=== PATIENT | female | born 1945 | race Caucasian/White ===

== ENCOUNTER → 2017-10-10 13:56 | Outpatient (CLI) | payer MEDICARE, OTHER, SELFPAY ==
[2017-05-22 18:49] VITALS: BMI 24.6
[2017-05-24 09:49] VITALS: BP 132/88
[2017-10-10 15:28] LABS: Absolute Neutrophil Count 3.3 X10^3/uL (2.0-7.7); Basophil# 0.07 X10^3/uL; Eosinophil# 0.37 X10^3/uL; Eosinophils% 5.2 % (0-5); Hematocrit 40.1 % (37-47); Hemoglobin 12.9 g/dl (12.0-15.0); Lymphocyte % 37.9 % (19-41); Mean Corp Hgb Conc 32.2 g/gl (32-36); Mean Corpuscular Hgb 30.6 pg (27.0-32.0); Mean Platelet Vol. 10.2 fl (6.2-12.0); Monocyte# 0.71 X10^3/uL; Neutrophil # 3.25 X10^3/uL (2.7-7.7); Neutrophil % 45.6 % (47-70); Platelet Count 307 K/mm3 (150-450); RBC Distribution Width CV 14.1 % (11.6-14.6); RBC Distribution Width SD 47.4 fl (35.1-43.9); Red Blood Count 4.22 M/mm3 (4.2-5.4); White Blood Count 7.1 K/mm3 (4.4-11.0)
[2017-10-10 15:30] LABS: POSITIVE COUNT NO; POSITIVE DIFFERENTIAL NO; POSITIVE MORPHOLOGY NO
[2017-10-10 15:37] LABS: Erythrocyte Sedimentation Rate 7 mm/hr (0-30)
[2017-10-10 15:41] LABS: ALB/GLOB Ratio 1.1 RATIO (0.9-2.4); AST(SGOT) 14 U/L (15-37); Alanine Aminotransfer ALT/SGPT 16 U/L (13-56); Albumin, Serum 3.5 g/dL (3.2-5.0); Alkaline Phosphatase 81 U/L (45-117); Anion Gap 10 (5-15); BUN 14 mg/dL (7-18); BUN/Creat Ratio 18.7 RATIO (10-20); CRP 4.26 mg/L (0.0-3.0); Calcium,Total 8.3 mg/dL (8.5-10.1); Chloride 100 mmol/L (98-107); Creatinine, Serum 0.75 mg/dL (0.55-1.02); EST Glomerular Filtration Rate 80 mL/min (>60); Est Glom Filt Rate - Afr Amer 97 mL/min (>60); Globulin 3.2 g/dL (2.2-4.2); Glucose 132 mg/dL (74-106); Potassium 3.8 mmol/L (3.5-5.1); Protein, Total 6.7 g/dL (6.4-8.2); Sodium Level 138 mmol/L (136-145)
== END ==
PROVIDERS: Family Provider Internal Medicine; PCP Internal Medicine; Visit Provider Internal Medicine Rheumatology
DX: M06.4 Inflammatory polyarthropathy (principal); Z79.899 Other long term (current) drug therapy; M79.7 Fibromyalgia; M15.9 Polyosteoarthritis, unspecified; M17.0 Bilateral primary osteoarthritis of knee; M16.0 Bilateral primary osteoarthritis of hip
CPT/HCPCS: 36415; 80053; 85025; 85652; 86140

== ENCOUNTER → 2017-10-18 10:05 | Outpatient (CLI) | payer MEDICARE, OTHER, SELFPAY ==
--- NOTE | 2017-10-18 10:07 | HPBI_ITS ---
MAMMOGRAPHY - BILATERAL SCREENING REASON FOR EXAM: Female, 72 years old. Routine annual screening examination. PERTINENT HISTORY: Mother with breast cancer. Aunt with breast cancer. TECHNIQUE: Digital bilateral breast jann (3D mammographic acquisition) in the CC and MLO projections. 2-D mediolateral oblique (MLO) and craniocaudad (CC) views of both breasts were obtained. CAD: Full Field Digital Mammography with Computer Added Detection was performed. COMPARISON: Comparison is made with prior study dated November 19, 2015 and November 17, 2014. FINDINGS: Breast Composition: There are scattered areas of fibroglandular density. There are no dominant masses or suspicious calcifications. No other significant abnormalities are identified. There has been no significant change since the prior study. HPBI/SCREENING MAMM (CAD), BILAT IMPRESSION: Stable bilateral screening mammogram. Yearly follow-up mammogram recommended. (A) ASSESSMENT CATEGORY: BIRADS Category 1: Negative. A letter regarding these results will be sent to the patient by the facility within 30 days. Approximately 10% of breast cancers are not detected by mammography. A normal mammogram should not delay biopsy of a clinically suspicious abnormality. [id number] Electronically Signed: Florian Valenzuela MD at 13:51 EST Tel [phone], Service support ,
== END ==
PROVIDERS: Family Provider Internal Medicine; PCP Internal Medicine; Visit Provider Internal Medicine
DX: Z12.31 Encounter for screening mammogram for malignant neoplasm of breast (principal)
CPT/HCPCS: 77063; 77067

== ENCOUNTER 2017-12-03 16:02 | Emergency (ER) | payer MEDICARE, OTHER, SELFPAY ==
[2017-12-03 16:04] VITALS: BP 138/85; PULSE 100; RESP 17; TEMP 36.8; O2SAT 92; BMI 27.8
[2017-12-03] MEDS: HYDROcodone Bitartrate/Apap 5/325 Tablet PO (16:23)
--- NOTE | 2017-12-03 16:36 | RAD_ITS ---
STUDY: X-RAY CHEST REASON FOR EXAM: Female, 72 years old. Pain after fall. TECHNIQUE: PA and lateral views of the chest. COMPARISON: September 26, 2017 FINDINGS: The lungs are clear and expanded. There is no demonstrated pleural abnormality. Normal size heart. Normal mediastinum and karthik. Normal visualized pulmonary arteries. Normal visualized aortic arch and descending thoracic aorta. There are postsurgical changes within the lower cervical and upper lumbar spine. The bony thorax is intact. There is no demonstrated abnormality of the visualized soft tissue structures of the upper abdomen. RAD/Chest PA and Lateral IMPRESSION: No acute cardiopulmonary process. Electronically Signed: Lotus Anthony MD at 17:19 EDT Tel , Service support ,
--- NOTE | 2017-12-03 17:06 | ED.DCSUM_ITS ---
- ER Visit Summary Date of Service: 12/03/17 Chief Complaint: Left-sided chest/rib pain status post fall History of Present Illness: The patient is a 72 F who fell 1-1/2 weeks ago sustaining a bruise above the left brow and injuring her left chest. She fell from a standing position. This occurred when she got up quickly at 0351 to use the restroom. She had no loss conscious. She was not dazed. She is on no anticoagulant or antiplatelet medication. She denies any trouble with vision, speech and denies any neck pain, paresthesia, anesthesia motor weakness presently the time of the initial fall. She denies any trouble with walking or balance. This past Monday she was walking with close hamper. She slept and fell hitting the edge of the close basket onto the left side of her chest. She has had increased pain. She states she has pain with movement of her left upper extremity, bending, twisting or breathing. She localizes the pain over the lower ribs and specifically left parasternal border and from the anterior axillary line to the posterior axillary line. She denies any hematuria, frequency, urgency or dysuria. She denies any abdominal pain or back pain. Please read written note for complete detail Physical Examination: Vital signs are remarkable for an elevated blood pressure 138/85. She is not febrile, tachypneic or hypoxic. She appears uncomfortable. Head is normocephalic. There is a bruise over the left brow laterally. There is no palpable depression or subcutaneous hematoma. Pupils are equal round reactive. Extraocular muscles are intact. TMs are pearly white with landmarks noted. Nares patent with no drainage. Posterior pharynx without erythema or exudate. Uvula is midline. There is no dysphonia or dysphasia. Trachea is midline. There is no stridor with auscultation of the neck. There is no pain palpation of the cervical spine and she has full active range of motion. Heart is regular without murmur, gallop or rub. S1 and S2 are normal. Lungs are clear to auscultation with good movement of air bilaterally. There is pain to palpation over the fifth sixth intercostal space on the left. There is pain that she complains of from the left seventh through 10th rib on the left. There is no crepitus or subcutaneous air. There is no dullness to percussion. Breath sounds are not diminished on the left nor is there any hyperresonance. Abdomen is soft and nontender. There is no hepatosplenomegaly. There is no tenderness with deep palpation left upper quadrant. There is no CVA tenderness noted. There is no guarding or rebound tenderness. There is no evidence of trauma to the extremities. GCS is 15 with a nonfocal neurologic exam. please read written note for complete detail. Test Results: Two-view chest x-ray revealed no acute process per my interpretation Emergency Department Course and Treatment: 2 view chest x-ray was obtained to evaluate for fractured rib, pneumothorax, hemothorax. Treatment Plan: Patient was treated with opiate analgesia in the department because she states her boyfriend could take her home. Patient was told 40-60% of rib fractures are not detected on x-ray. Disposition: Discharge to home with opiate analgesia and appropriate home-going instructions Impression: Left-sided rib pain secondary to blunt trauma This note was generated with [employer] dictation software. It may contain incorrect words, spelling, and punctuation that were not noted in review of the chart prior to signing ED Disposition - Plan for ED Patient: Disposition: Home or Assisted Living Chief Complaint: Chest Other Instructions: ED Contusion Vs Minor Fx Rib Prescriptions: Hydrocodone Bitart/Apap 5-325 [[place] 5MG-325MG] 1 tab PO Q6H PRN PRN 3 Days #10 tab PRN Reason: Pain Referrals: Margarita Drake DO [Primary Care Provider] - 1 Week if not improving
--- NOTE | 2017-12-03 17:12 | ED.RN ---
pt drove herself in, call boyfriend for ride d/t being given a narcotic
== END 2017-12-03 17:12 | disposition home or self-care (01) ==
PROVIDERS: Emergency Provider Emergency Medicine; Family Provider Internal Medicine; PCP Internal Medicine
DX: S29.9XXA Unspecified injury of thorax, initial encounter (principal); W01.0XXA Fall on same level from slipping, tripping and stumbling without subsequent striking against object, initial encounter; Y93.01 Activity, walking, marching and hiking; Y92.9 Unspecified place or not applicable; I10 Essential (primary) hypertension; E78.00 Pure hypercholesterolemia, unspecified; E11.9 Type 2 diabetes mellitus without complications; Z79.84 Long term (current) use of oral hypoglycemic drugs; K21.9 Gastro-esophageal reflux disease without esophagitis; E66.9 Obesity, unspecified; Z68.27 Body mass index [BMI] 27.0-27.9, adult; Z79.899 Other long term (current) drug therapy
CPT/HCPCS: 71046; 99283

== ENCOUNTER → 2017-12-07 08:53 | Outpatient (CLI) | payer MEDICARE, OTHER, SELFPAY ==
[2017-12-07 09:56] LABS: Absolute Lymphocyte Count 2.55 X10^3/ul (0.83-4.51); Absolute Neutrophil Count 2.6 X10^3/uL (2.0-7.7); Basophil# 0.05 X10^3/uL; Basophil% 0.8 % (0-1); Eosinophil# 0.22 X10^3/uL; Eosinophils% 3.5 % (0-5); Hemoglobin 13.3 g/dl (12.0-15.0); Lymphocyte # 2.55 X10^3/ul (4.0); Lymphocyte % 40.7 % (19-41); Mean Corp Hgb Conc 31.7 g/gl (32-36); Mean Corpuscular Hgb 30.9 pg (27.0-32.0); Mean Corpuscular Volume 97.4 fL (81-99); Mean Platelet Vol. 9.5 fl (6.2-12.0); Monocyte# 0.79 X10^3/uL; Monocyte% 12.6 % (0-10); Neutrophil # 2.63 X10^3/uL (2.7-7.7); Neutrophil % 41.9 % (47-70); Platelet Count 358 K/mm3 (150-450); RBC Distribution Width CV 16.5 % (11.6-14.6); RBC Distribution Width SD 58.2 fl (35.1-43.9); Red Blood Count 4.31 M/mm3 (4.2-5.4); White Blood Count 6.3 K/mm3 (4.4-11.0)
[2017-12-07 09:57] LABS: POSITIVE COUNT NO; POSITIVE DIFFERENTIAL NO; POSITIVE MORPHOLOGY NO
[2017-12-07 10:17] LABS: ALB/GLOB Ratio 1.1 RATIO (0.9-2.4); AST(SGOT) 13 U/L (15-37); Alanine Aminotransfer ALT/SGPT 21 U/L (13-56); Albumin, Serum 3.9 g/dL (3.2-5.0); Alkaline Phosphatase 76 U/L (45-117); Anion Gap 8 (5-15); BUN 13 mg/dL (7-18); BUN/Creat Ratio 16.9 RATIO (10-20); Calcium,Total 8.9 mg/dL (8.5-10.1); Chloride 100 mmol/L (98-107); Creatinine, Serum 0.77 mg/dL (0.55-1.02); EST Glomerular Filtration Rate 78 mL/min (>60); Est Glom Filt Rate - Afr Amer 94 mL/min (>60); Globulin 3.6 g/dL (2.2-4.2); Glucose 107 mg/dL (74-106); Potassium 3.4 mmol/L (3.5-5.1); Protein, Total 7.5 g/dL (6.4-8.2); Sodium Level 140 mmol/L (136-145)
== END ==
PROVIDERS: Family Provider Internal Medicine; PCP Internal Medicine; Visit Provider Internal Medicine Rheumatology
DX: M06.4 Inflammatory polyarthropathy (principal); Z79.899 Other long term (current) drug therapy; M79.7 Fibromyalgia; M15.9 Polyosteoarthritis, unspecified; M17.0 Bilateral primary osteoarthritis of knee; M16.0 Bilateral primary osteoarthritis of hip; K21.9 Gastro-esophageal reflux disease without esophagitis; M21.40 Flat foot [pes planus] (acquired), unspecified foot; F32.89 Other specified depressive episodes; F41.9 Anxiety disorder, unspecified
CPT/HCPCS: 36415; 80053; 85025

== ENCOUNTER → 2018-02-08 14:49 | Outpatient (CLI) | payer MEDICARE, OTHER, SELFPAY ==
--- NOTE | 2018-02-08 14:49 | DT_ITS ---
This patient was seen during an EMR downtime February 05, 2018 - February 12, 2018. This patient may have a combination of paper and electronic documentation or all paper documentation. All documentation is viewable within the e-chart portion of [employer] for each patient visit.
--- NOTE | 2018-02-08 14:51 | MRI_ITS ---
STUDY: MRI LUMBAR SPINE WITHOUT CONTRAST REASON FOR EXAM: Female, 72 years old. Bilateral leg pain and numbness TECHNIQUE: Standardized fat and water weighted pulse sequences were obtained in the sagittal and axial planes. COMPARISON: 02/14/2017 FINDINGS: T12-L1: Normal endplates. Normal disc height, hydration and morphology. Normal bilateral facet joints. Normal central canal and bilateral lateral recesses. Normal bilateral intervertebral neural foramina. Stable grade 1 L4-5 anterolisthesis. Mild dextroconvex scoliosis. Normal conus medullaris that terminates at the L1 level. Bilateral posterior pedicle fusions at L1, L2, L4, and L5. Right pedicle fusion at L3. Bone harvesting from both kerry. Bilateral laminectomies from L1 to through L5-S1. L1-2: Bulging annulus with moderate left foraminal stenosis. L2-3: Bulging annulus with moderate left foraminal stenosis. L3-4: Residual disc osteophyte complex with moderate bilateral foraminal stenoses. L4-5: Residual disc osteophyte complex with moderate right and mild left foraminal stenoses. L5-S1: Bulging annulus and central disc protrusion with moderate left lateral recess stenosis and moderate bilateral foraminal stenoses. Normal visualized sacral ala. Normal visualized paraspinous soft tissue structures. MRI/Spine Lumbar (Routine) IMPRESSION: Multilevel degenerative and postoperative change as described. Moderate foraminal stenoses on the left at L1-2, on the left at L2-3, bilaterally at L3-4, on the right at L4-5, and bilaterally at L5-S1. Moderate left lateral recess stenosis at the L5-S1 level. Electronically Signed: Dylan Donato MD at 0:46 EDT Tel , Service support ,
--- NOTE | 2018-02-08 14:51 | CT_ITS ---
STUDY: CT LUMBAR SPINE WITHOUT CONTRAST REASON FOR EXAM: Female, 72 years old. Low back pain RADIATION DOSAGE (If Supplied By Facility): CTDIvol = ( 16.20 ) mGy, DLP = ( 378.74 ) mGycm TECHNIQUE: The patient was scanned in a multi detector CT scanner. High resolution transaxial imaging was performed. Images were obtained from T12 to S1. Sagittal and coronal images were reconstructed. Individualized dose optimization techniques were used for this CT. COMPARISON: 08/04/2017 x-ray FINDINGS: Anterolisthesis L4 on L5. There is no substantial scoliosis. Demineralization. Bilateral pedicle screws L1-L5. The right L3 pedicle screw appears to be broken. No left L3 pedicle screw identified. Demineralization. L1-2: Degenerative disc disease. Stable L1 superior endplate change. Laminectomy. Bilateral neural foraminal narrowing. L2-3: Degenerative disc disease. Laminectomy. No central canal stenosis. Mild left neural foraminal narrowing. L3-4: Degenerative disc disease. Laminectomy. No central canal stenosis. Left neural foraminal narrowing. L4-5: There is a 4 mm anterolisthesis L4 on L5. Laminectomy. Bilateral neural foraminal narrowing. L5-S1: Degenerative disc disease with vacuum phenomena. Laminectomy. No central canal stenosis. Bilateral neural foraminal narrowing. Normal visualized paraspinous soft tissue structures. CT/Spine Lumbar without Contrast IMPRESSION: Multilevel degenerative change discussed above. Hardware as described. Right L3 pedicle screw appears broken. Grade 1 anterolisthesis of L4 on L5. Laminectomies. Demineralization. Electronically Signed: Robles Mejia DO at 10:57 EDT , Service support ,
== END ==
PROVIDERS: Family Provider Internal Medicine; PCP Internal Medicine; Visit Provider Neurological Surgery
DX: M48.07 Spinal stenosis, lumbosacral region (principal)
CPT/HCPCS: 72131; 72148

== ENCOUNTER → 2018-03-12 07:01 | Outpatient (CLI) | payer MEDICARE, OTHER, SELFPAY ==
[2018-03-12 10:11] LABS: Absolute Lymphocyte Count 1.82 X10^3/ul (0.83-4.51); Absolute Neutrophil Count 4.4 X10^3/uL (2.0-7.7); Basophil# 0.03 X10^3/uL; Basophil% 0.4 % (0-1); Eosinophil# 0.16 X10^3/uL; Eosinophils% 2.3 % (0-5); Hematocrit 42.2 % (37-47); Hemoglobin 13.6 g/dl (12.0-15.0); Lymphocyte # 1.82 X10^3/ul (4.0); Lymphocyte % 26.1 % (19-41); Mean Corp Hgb Conc 32.2 g/gl (32-36); Mean Corpuscular Hgb 31.4 pg (27.0-32.0); Mean Corpuscular Volume 97.5 fL (81-99); Mean Platelet Vol. 9.9 fl (6.2-12.0); Monocyte# 0.53 X10^3/uL; Monocyte% 7.6 % (0-10); Neutrophil # 4.41 X10^3/uL (2.7-7.7); Neutrophil % 63.5 % (47-70); Platelet Count 295 K/mm3 (150-450); RBC Distribution Width CV 14.9 % (11.6-14.6); RBC Distribution Width SD 50.5 fl (35.1-43.9); Red Blood Count 4.33 M/mm3 (4.2-5.4)
[2018-03-12 10:22] LABS: POSITIVE COUNT NO; POSITIVE DIFFERENTIAL NO; POSITIVE MORPHOLOGY NO
[2018-03-12 10:29] LABS: ALB/GLOB Ratio 1.3 RATIO (0.9-2.4); AST(SGOT) 13 U/L (15-37); Alanine Aminotransfer ALT/SGPT 21 U/L (13-56); Albumin, Serum 4.1 g/dL (3.2-5.0); Alkaline Phosphatase 80 U/L (45-117); Anion Gap 12 (5-15); BUN 20 mg/dL (7-18); BUN/Creat Ratio 22.4 RATIO (10-20); Calcium,Total 8.3 mg/dL (8.5-10.1); Chloride 105 mmol/L (98-107); Creatinine, Serum 0.89 mg/dL (0.55-1.02); EST Glomerular Filtration Rate 66 mL/min (>60); Est Glom Filt Rate - Afr Amer 79 mL/min (>60); Globulin 3.1 g/dL (2.2-4.2); Glucose 118 mg/dL (74-106); Potassium 3.4 mmol/L (3.5-5.1); Protein, Total 7.2 g/dL (6.4-8.2); Sodium Level 145 mmol/L (136-145)
== END ==
PROVIDERS: Family Provider Internal Medicine; PCP Internal Medicine; Visit Provider Internal Medicine Rheumatology
DX: M06.4 Inflammatory polyarthropathy (principal); M79.7 Fibromyalgia; M17.0 Bilateral primary osteoarthritis of knee; M16.0 Bilateral primary osteoarthritis of hip; K21.9 Gastro-esophageal reflux disease without esophagitis; M21.40 Flat foot [pes planus] (acquired), unspecified foot; F32.89 Other specified depressive episodes; F41.9 Anxiety disorder, unspecified; I10 Essential (primary) hypertension; E11.9 Type 2 diabetes mellitus without complications; G25.81 Restless legs syndrome; Z85.43 Personal history of malignant neoplasm of ovary; Z79.899 Other long term (current) drug therapy
CPT/HCPCS: 36415; 80053; 85025

== ENCOUNTER 2018-05-07 08:22 | Emergency (ER) | payer MEDICARE, OTHER, SELFPAY ==
[2018-05-07 08:23] VITALS: BP 160/106; PULSE 94; RESP 16; TEMP 36.7; O2SAT 99; BMI 26.6
--- NOTE | 2018-05-07 08:38 | ED.VISSUMM ---
- ER Visit Summary Date of Service: 05/07/18 Chief Complaint: Nausea, vomiting and diarrhea History of Present Illness: The patient is a 72 F has a past medical history of valvular heart disease, hypertension, cholesterol spinal stenosis and multiple surgeries. Patient states she went to [employer] game on Monday. And she developed nausea vomiting and diarrhea days. Denies any hematemesis. Denies any melena. She has had fever and chills. She really denies any significant abdominal pain. Physical Examination: Older female vital signs are stable she is afebrile temperature 98. Pulse is 99% on room air no signs of hypoxia. She does not look septic. She does appear to be dehydrated. H EENT exam dry mucous membranes otherwise unremarkable. No facial droop. Pupils are round reactive light. Equal symmetrical. Neck nontender. No lymphadenopathy. Lungs clear to auscultation bilaterally. Heart regular rhythm. Abdomen is soft, nontender, nondistended normal bowel sounds without peritoneal signs. No hernias or masses. No signs of obstruction. She is moving all 4 extremities. They are neurovascularly intact. Back is nontender. Neurologically she is awake and alert with no focal motor deficits. Test Results: CBC shows a white count of 7. H&H of 14 and 43. No bands. Electrolytes unremarkable gap of 10. Creatinine is 0.7. Emergency Department Course and Treatment: Patient be treated with IV fluids and IV Zofran. Clinically and historically this is consistent with a viral gastroenteritis. An IV Zofran. She was given a p.o. fluid challenge and she is able to hold fluids down she will be discharged home with Zofran. Treatment Plan: Zofran 4 mg as needed for nausea. Follow-up with primary care physician as needed or return if worse. Disposition: Discharge Impression: Acute nausea, vomiting and diarrhea secondary to gastroenteritis Dehydration This note was generated with [employer] dictation software. It may contain incorrect words, spelling, and punctuation that were not noted in review of the chart prior to signing ED Disposition - Plan for ED Patient: Chief Complaint: General Illness Referrals: Margarita Drake DO [Primary Care Provider] -
--- NOTE | 2018-05-07 08:41 | ED.DCSUM_ITS ---
- ER Visit Summary Date of Service: 05/07/18 Chief Complaint: Nausea, vomiting and diarrhea History of Present Illness: The patient is a 72 F has a past medical history of valvular heart disease, hypertension, cholesterol spinal stenosis and multiple surgeries. Patient states she went to [employer] game on Monday. And she developed nausea vomiting and diarrhea days. Denies any hematemesis. Denies any melena. She has had fever and chills. She really denies any significant abdominal pain. Physical Examination: Older female vital signs are stable she is afebrile temperature 98. Pulse is 99% on room air no signs of hypoxia. She does not look septic. She does appear to be dehydrated. H EENT exam dry mucous membranes otherwise unremarkable. No facial droop. Pupils are round reactive light. Equal symmetrical. Neck nontender. No lymphadenopathy. Lungs clear to auscultation bilaterally. Heart regular rhythm. Abdomen is soft, nontender , nondistended normal bowel sounds without peritoneal signs. No hernias or masses. No signs of obstruction. She is moving all 4 extremities. They are neurovascularly intact. Back is nontender. Neurologically she is awake and alert with no focal motor deficits. Test Results: CBC shows a white count of 7. H&H of 14 and 43. No bands. Electrolytes unremarkable gap of 10. Creatinine is 0.7. Emergency Department Course and Treatment: Patient be treated with IV fluids and IV Zofran. Clinically and historically this is consistent with a viral gastroenteritis. An IV Zofran. She was given a p.o. fluid challenge and she is able to hold fluids down she will be discharged home with Zofran. Treatment Plan: Zofran 4 mg as needed for nausea. Follow-up with primary care physician as needed or return if worse. Disposition: Discharge Impression: Acute nausea, vomiting and diarrhea secondary to gastroenteritis Dehydration This note was generated with [employer] dictation software. It may contain incorrect words, spelling, and punctuation that were not noted in review of the chart prior to signing ED Disposition - Plan for ED Patient: Chief Complaint: General Illness Referrals: Margarita Drake DO [Primary Care Provider] -
[2018-05-07] MEDS: 0.9% Normal Saline 1,000 ML 1000 ML IV (08:59)
[2018-05-07] MEDS: Ondansetron 4 MG/2 ML Vial IV ×2 (08:59→09:49)
[2018-05-07 09:02] LABS: Absolute Lymphocyte Count 1.75 X10^3/ul (0.83-4.51); Absolute Neutrophil Count 5.1 X10^3/uL (2.0-7.7); Basophil# 0.04 X10^3/uL; Basophil% 0.5 % (0-1); Eosinophils% 1.3 % (0-5); Hematocrit 43.7 % (37-47); Hemoglobin 14.9 g/dl (12.0-15.0); Lymphocyte # 1.75 X10^3/ul (4.0); Lymphocyte % 22.8 % (19-41); Mean Corp Hgb Conc 34.1 g/gl (32-36); Mean Corpuscular Hgb 33.5 pg (27.0-32.0); Mean Corpuscular Volume 98.2 fL (81-99); Mean Platelet Vol. 10.6 fl (6.2-12.0); Monocyte# 0.68 X10^3/uL; Monocyte% 8.9 % (0-10); Neutrophil # 5.06 X10^3/uL (2.7-7.7); Neutrophil % 66.1 % (47-70); Platelet Count 260 K/mm3 (150-450); RBC Distribution Width CV 16.7 % (11.6-14.6); RBC Distribution Width SD 59.4 fl (35.1-43.9); Red Blood Count 4.45 M/mm3 (4.2-5.4); White Blood Count 7.7 K/mm3 (4.4-11.0)
[2018-05-07 09:03] LABS: POSITIVE COUNT NO; POSITIVE DIFFERENTIAL NO; POSITIVE MORPHOLOGY NO
[2018-05-07 09:14] LABS: Anion Gap 10 (5-15); BUN 12 mg/dL (7-18); BUN/Creat Ratio 15.2 RATIO (10-20); Calcium,Total 9.2 mg/dL (8.5-10.1); Chloride 103 mmol/L (98-107); Creatinine, Serum 0.79 mg/dL (0.55-1.02); EST Glomerular Filtration Rate 75 mL/min (>60); Est Glom Filt Rate - Afr Amer 91 mL/min (>60); Estimated Creatinine Clearance 44.41 ml/min; Glucose 155 mg/dL (74-106); Potassium 4.1 mmol/L (3.5-5.1); Sodium Level 140 mmol/L (136-145)
--- NOTE | 2018-05-07 09:31 | ED.DEP ---
ED Disposition - Plan for ED Patient: Disposition: Home or Assisted Living Chief Complaint: General Illness Instructions: ED Gastroenteritis Viral Prescriptions: Ondansetron [Zofran Odt] 4 mg PO Q4H PRN PRN #10 tab.rapdis PRN Reason: Nausea Referrals: Margarita Drake DO [Primary Care Provider] - 1-2 Days if not improving Additional Instructions: plenty of fluids and rest. Zofran as needed for nausea. Follow-up your primary care physician if not improving or return worse.
[2018-05-07] MEDS: proMETHazine 25 MG/ML Syringe 12.5 MG IV (10:45)
[2018-05-07 10:53] VITALS: BP 151/96; PULSE 74; RESP 18; O2SAT 98
[2018-05-07 10:54] VITALS: BP 151/96; PULSE 74; RESP 18; O2SAT 99
== END 2018-05-07 10:55 | disposition home or self-care (01) ==
PROVIDERS: Emergency Provider Emergency Medicine; Family Provider Internal Medicine; PCP Internal Medicine
DX: A08.4 Viral intestinal infection, unspecified (principal); E86.0 Dehydration; I10 Essential (primary) hypertension; I38 Endocarditis, valve unspecified; M48.00 Spinal stenosis, site unspecified; Z79.891 Long term (current) use of opiate analgesic; Z79.899 Other long term (current) drug therapy
CPT/HCPCS: 80048; 85025; 96361; 96374; 96375; 96376; 99284; J7030; A4216; J2405

== ENCOUNTER → 2018-05-21 15:01 | Outpatient (CLI) | payer MEDICARE, OTHER, SELFPAY ==
[2018-05-21 15:52] LABS: Amphetamine Urine VISTA NEGATIVE (<1000 ng/mL); Barbiturate Urine VISTA NEGATIVE (< 200 ng/mL); Benzodiazepine Urine VISTA NEGATIVE (< 200 ng/mL); Cocaine Urine VISTA NEGATIVE (< 300 ng/mL); Ecstacy Urine VISTA NEGATIVE (< 500 ng/mL); Methadone Urine VISTA NEGATIVE (< 300 ng/mL); PCP Urine VISTA NEGATIVE (< 25 ng/mL); THC Urine VISTA NEGATIVE (< 50 ng/mL); Vista UDS pH Range 6
== END ==
PROVIDERS: Family Provider Internal Medicine; PCP Internal Medicine; Visit Provider Anesthesiology Pain Medicine
DX: F11.20 Opioid dependence, uncomplicated (principal)
CPT/HCPCS: 80307

== ENCOUNTER → 2018-05-28 11:30 | Outpatient (CLI) | payer MEDICARE, OTHER, SELFPAY ==
[2018-05-28 14:09] LABS: Absolute Lymphocyte Count 1.24 X10^3/ul (0.83-4.51); Absolute Neutrophil Count 4.8 X10^3/uL (2.0-7.7); Basophil# 0.02 X10^3/uL; Basophil% 0.3 % (0-1); Eosinophil# 0.04 X10^3/uL; Eosinophils% 0.6 % (0-5); Hematocrit 41.1 % (37-47); Hemoglobin 13.6 g/dl (12.0-15.0); Lymphocyte # 1.24 X10^3/ul (4.0); Lymphocyte % 18.9 % (19-41); Mean Corp Hgb Conc 33.1 g/gl (32-36); Mean Corpuscular Hgb 33.5 pg (27.0-32.0); Mean Corpuscular Volume 101.2 fL (81-99); Mean Platelet Vol. 9.9 fl (6.2-12.0); Monocyte# 0.45 X10^3/uL; Monocyte% 6.9 % (0-10); Neutrophil # 4.78 X10^3/uL (2.7-7.7); Neutrophil % 72.8 % (47-70); Platelet Count 303 K/mm3 (150-450); RBC Distribution Width CV 14.3 % (11.6-14.6); RBC Distribution Width SD 51.8 fl (35.1-43.9); Red Blood Count 4.06 M/mm3 (4.2-5.4); White Blood Count 6.6 K/mm3 (4.4-11.0)
[2018-05-28 14:10] LABS: POSITIVE COUNT NO; POSITIVE DIFFERENTIAL NO; POSITIVE MORPHOLOGY NO
[2018-05-28 14:15] LABS: ALB/GLOB Ratio 1.2 RATIO (0.9-2.4); AST(SGOT) 14 U/L (15-37); Alanine Aminotransfer ALT/SGPT 22 U/L (13-56); Albumin, Serum 3.8 g/dL (3.2-5.0); Alkaline Phosphatase 74 U/L (45-117); Anion Gap 11 (5-15); BUN 23 mg/dL (7-18); BUN/Creat Ratio 29.2 RATIO (10-20); Calcium,Total 9.1 mg/dL (8.5-10.1); Chloride 100 mmol/L (98-107); Creatinine, Serum 0.79 mg/dL (0.55-1.02); EST Glomerular Filtration Rate 76 mL/min (>60); Est Glom Filt Rate - Afr Amer 91 mL/min (>60); Globulin 3.2 g/dL (2.2-4.2); Glucose 153 mg/dL (74-106); Potassium 3.7 mmol/L (3.5-5.1); Sodium Level 139 mmol/L (136-145)
== END ==
PROVIDERS: Family Provider Internal Medicine; PCP Internal Medicine; Visit Provider Internal Medicine Rheumatology
DX: M06.4 Inflammatory polyarthropathy (principal); M79.7 Fibromyalgia; M17.0 Bilateral primary osteoarthritis of knee; M16.0 Bilateral primary osteoarthritis of hip; Z79.899 Other long term (current) drug therapy
CPT/HCPCS: 36415; 80053; 85025

== ENCOUNTER → 2018-08-15 10:01 | Outpatient (CLI) | payer MEDICARE, OTHER, SELFPAY ==
[2018-08-15 10:01] VITALS: BMI 26.1
[2018-08-15 11:54] LABS: Absolute Lymphocyte Count 1.85 X10^3/ul (0.83-4.51); Absolute Neutrophil Count 2.8 X10^3/uL (2.0-7.7); Basophil# 0.03 X10^3/uL; Basophil% 0.6 % (0-1); Eosinophil# 0.08 X10^3/uL; Eosinophils% 1.5 % (0-5); Lymphocyte # 1.85 X10^3/ul (4.0); Lymphocyte % 35.1 % (19-41); Mean Corp Hgb Conc 31.7 g/gl (32-36); Mean Corpuscular Hgb 32.3 pg (27.0-32.0); Mean Platelet Vol. 9.8 fl (6.2-12.0); Monocyte# 0.46 X10^3/uL; Monocyte% 8.7 % (0-10); Neutrophil # 2.84 X10^3/uL (2.7-7.7); Neutrophil % 53.9 % (47-70); Platelet Count 272 K/mm3 (150-450); RBC Distribution Width CV 14.4 % (11.6-14.6); Red Blood Count 4.02 M/mm3 (4.2-5.4); White Blood Count 5.3 K/mm3 (4.4-11.0)
[2018-08-15 12:00] LABS: POSITIVE COUNT NO; POSITIVE DIFFERENTIAL NO; POSITIVE MORPHOLOGY NO
[2018-08-15 12:09] LABS: ALB/GLOB Ratio 1.3 RATIO (0.9-2.4); AST(SGOT) 13 U/L (15-37); Alanine Aminotransfer ALT/SGPT 24 U/L (13-56); Albumin, Serum 3.9 g/dL (3.2-5.0); Alkaline Phosphatase 70 U/L (45-117); Anion Gap 7 (5-15); BUN 16 mg/dL (7-18); BUN/Creat Ratio 22.7 RATIO (10-20); Calcium,Total 8.6 mg/dL (8.5-10.1); Chloride 104 mmol/L (98-107); EST Glomerular Filtration Rate 86 mL/min (>60); Est Glom Filt Rate - Afr Amer 104 mL/min (>60); Globulin 3.1 g/dL (2.2-4.2); Glucose 107 mg/dL (74-106); Potassium 3.9 mmol/L (3.5-5.1); Sodium Level 142 mmol/L (136-145)
--- OUTSIDE RECORDS SUMMARY | 2018-10-01 09:01 | XMS RPT_ITS | Continuity of Care Document ---
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 29-Jul-2008 End : 29-Jul-2008 Discontinued PredniSONE 10 MG Oral Tablet 1 Tablet 1bid x 3 days, 1 daily x 3 days 1/2 daily x 3 days for 0 days Quantity: 12 {Tablet} Refills: 0 Ordered:26-Sep-2017 Stefanie Ghosh Start : 13-Sep-2017 End : 26-Sep-2017 Discontinued Comments:with food PredniSONE 20 MG Oral Tablet 1 (one) Tablet Tablet bid for 2days then qd for 4days for 0 days Quantity: 8 {Tablet} Refills: 0 Ordered:07-Oct-2016 Marlyn Roberts LPN Start : 23-Sep-2016 End : 07-Oct-2016 Discontinued PREDNISONE, 20MG (Oral Tablet) 1 Tablet TAD for 0 days Quantity: 12 {Tablet} Refills: 0 Ordered:17-Jan-2011 Rachel Leyva Start : 17-Jan-2011 End : 17-Jan-2011 Discontinued Comments:Take 1 bid x 3 days, 1 qd x 4 days, 1/2 qd x 4 days ProAir HFA 108 (90 Base) MCG/ACT Inhalation Aerosol Solution 1-2 Puff Puff Q 4-6 hours PRN for 0 days Quantity: 1 {Inhaler} Refills: 0 Ordered:26-Sep-2017 Stefanie Ghosh Start : 07-Sep-2017 End : 26-Sep-2017 Discontinued SIMVASTATIN, 40MG (Oral Tablet) 1 (one) Tablet qhs / HS for 90 days Quantity: 90 {Tablet} Refills: 3 Ordered:21-Dec-2011 Rachel Leyva Start : 21-Dec-2011 End : 21-Dec-2011 Discontinued TRICOR, 145MG (Oral Tablet) 1 (one) Tablet QD for 0 days Quantity: 30 {Tablet} Refills: 3 Ordered:31-May-2006 Amie Shelton Start : 31-May-2006 End : 09-Aug-2006 Discontinued TRICOR, 48MG (Oral Tablet) 1 (one) Tablet qd for 0 days Quantity: 30 {Tablet} Refills: 3 Ordered:14-Sep-2009 Libby Mai DO Start : 14-Sep-2009 End : 14-Sep-2009 Discontinued TRICOR, 54MG (Oral Tablet) 1 (one) Tablet qd for 0 days Quantity: 30 {Tablet} Refills: 3 Ordered:05-Jun-2009 Rachel Leyva Start : 05-Jun-2009 End : 23-Dec-2009 Discontinued Comments:This order discontinued per [facility]. TRILIPIX, 45MG (Oral Capsule Delayed Release) 1 (one) Capsule DR qd for 0 days Quantity: 90 {Capsule_DR} Refills: 3 Ordered:21-Dec-2011 Rachel Leyva Start : 21-Dec-2011 End : 21-Dec-2011 Discontinued ZETIA, 10MG (Oral Tablet) 1 (one) Tablet Daily for 0 days Quantity: 30 {Tablet} Refills: 3 Ordered:08-Jan-2007 Amie Shelton Start : 08-Jan-2007 End : 26-Feb-2007 Discontinued Zithromax Z-Allan 250 MG Oral Tablet 1 (one) Tablet TAD for 0 days Quantity: 1 {Package} Refills: 0 Ordered:26-Sep-2017 Stefanie Ghosh Start : 13-Sep-2017 End : 26-Sep-2017 Discontinued Allergies and Adverse Reactions Name Dates Details Egg White (Allergy) Status: Active Influenza A (H1N1) Monoval Vac *VACCINES* Status: Active (Allergy) NIACIN (ANTIHYPERLIPIDEMIC), 1000MG (Oral Status: Active Tablet Extended Release) (Allergy) Comments: severe flushing No Known Drug Allergies (Allergy) Onset: 09-Sep-2013 Status: Inactive Tricor *ANTIHYPERLIPIDEMICS* (Allergy) Status: Active Comments: myalgias Zetia *ANTIHYPERLIPIDEMICS* (Allergy) Status: Active Comments: vomiting Past Medical History Name Dates Details Abdominal pain (R10.9, 789.00) Comments: i think multifactorial - epigastric may be gastritis / ulcer from stress-- will refill carafate. the rest of sx i think is IBS Status: Inactive as of 03-Nov-2016 Abdominal pain, acute, left upper quadrant (R10.12, 789.02) Status: Resolved as of 19-Sep-2011 Abnormal findings on diagnostic imaging of other specified body structures (R93.8, 793.99) Status: Inactive as of 25-Jul-2017 Abnormal glucose tolerance test (R73.02, 790.22) Status: Resolved as of 17-Jan-2011 Abnormal lung sounds (R09.89, 786.7) Status: Resolved as of 28-Sep-2016 Abnormal lung sounds (R09.89, 786.7) Status: Resolved as of 10-Nov-2017 Abnormal urine (R82.90, 791.9) Status: Resolved as of 17-Jan-2011 Abrasion (T14.8XXA, 919.0) Comments: legs from dog scratches.Apply topical bacitracin cream , if start developing redness, warmth, fever, will start keflex Status: Inactive as of 23-Sep-2016 Acute pharyngitis (J02.9, 462) 07-Nov-2011 Status: Resolved as of 11-Dec-2013 Acute sinusitis, unspecified (J01.90, 461.9) 16-Sep-2010 Status: Resolved as of 17-Jan-2011 Allergic rhinitis (J30.9, 477.9) Status: Inactive as of 25-Jul-2017 Allergic rhinitis due to other allergen (J30.89, 477.8) Comments: allergy shots weekly Jon Status: Inactive as of 28-Oct-2015 Benign paroxysmal positional vertigo (H81.10, 386.11) Status: Resolved as of 21-Oct-2010 Bruise (T14.8XXA, 924.9) Status: Inactive as of 03-Nov-2016 burning tongue syndrome Comments: get back to Dr. gomesmiprudencio help Status: Inactive as of 27-Aug-2013 CAP (community acquired pneumonia) (J18.9, 486) Status: Resolved as of 03-Nov-2016 Cellulitis of skin (L03.90, 682.9) Status: Inactive as of 25-Jul-2017 Chest pain (R07.9, 786.59) Status: Inactive as of 03-Mar-[address] Mai Status: Inactive as of 11-Mar-2009 Cough (R05, 786.2) Status: Resolved as of 10-Nov-2017 Cystitis, acute (N30.00, 595.0) Status: Inactive as of 28-Oct-2015 Dehydration (E86.0, 276.51) Status: Resolved as of 25-Aug-2017 Diarrhea (R19.7, 787.91) Status: Resolved as of 19-Sep-2011 DVT (deep venous thrombosis) (I82.409, 453.40) Comments: keeping her on eliquis longer than 6mo Status: Resolved as of 28-Sep-2016 Dysfunctional grieving (F43.21, 309.0) Status: Resolved as of 09-Sep-2013 EDEMA, NOS (782.3) Comments: Bilateral lower extrem, after standing 2 shifts at workImproving with leg elevation Status: Resolved as of 17-Jan-2011 Elevated blood pressure reading with diagnosis of hypertension (I10, 401.9) Status: Resolved as of 10-Nov-2017 Elevated WBC count (D72.829, 288.60) Comments: Repeat CBC and CMP today.If WBC and platelet still high will refer to heme onc for ? myeloproliferative disorder. Status: Inactive as of 03-Nov-2016 Epigastric pain (R10.13, 789.06) Status: Inactive as of 28-Oct-2015 facial neuralgia Status: Inactive as of 11-Mar-2009 Fall, accidental (W19.XXXA, E888.9) Status: Resolved as of 25-Aug-2017 Fever and chills (R50.9, 780.60) Status: Resolved as of 10-Nov-2017 FIBROMYALGIA Status: Inactive as of 11-Mar-2009 Flu-like symptoms (R68.89, 780.99) Comments: think may have virus do labs dont see anything on exam saying she has bacterial infection- Status: Resolved as of 25-Aug-2017 Flu-like symptoms (R68.89, 780.99) Status: Resolved as of 28-Sep-2016 Gastroenteritis (K52.9, 558.9) Status: Resolved as of 16-Sep-2010 Hypokalemia (Renamed from Decreased potassium in the blood) (E87.6, 276.8) Status: Resolved as of 03-Nov-2016 Knee Pain (Renamed from Gonalgia) (M25.569, 719.46) Status: Inactive as of 25-Jul-2017 left leg pain Status: Resolved as of 02-Mar-2009 Limb pain (M79.609, 729.5) Status: Resolved as of 02-Mar-2009 Myalgia and myositis (729.1) Status: Inactive as of 03-Nov-2016 Need for prophylactic vaccination and inoculation against influenza (Z23, V04.81) Status: Inactive as of 11-Dec-2013 Other and unspecified diseases of the oral soft tissues (K13.70, 528.9) Status: Inactive as of 03-Nov-2016 Other specified viral infection, in conditions classified elsewhere and of unspecified site (B97.89, 079.89) Status: Resolved as of 11-Dec-2013 Pain (R52, 780.96) Comments: beltranle on neurontin Status: Resolved as of 09-Sep-2013 Poison abner (L23.7, 692.6) Status: Resolved as of 05-Jun-2009 Pre-operative examination (Z01.818, V72.84) Status: Inactive as of 21-Mar-2014 Pre-operative examination (Z01.818, V72.84) Status: Inactive as of 21-Mar-2014 Pre-operative general physical examination (Z01.818, V72.83) Comments: ekg at [facility] with records from recent hospitalization Status: Inactive as of 25-Jul-2017 Proteinuria (R80.9, 791.0) Status: Inactive as of 25-Jul-2017 pruritis Status: Resolved as of 02-Mar-2009 Pulmonary embolism, bilateral (I26.99, 415.19) Comments: ED: 04/26/16 with UTI, sepsis, acute DVT and BL PE, respiratory failure, high oxygen requiremnet and transferred to unit for mask ventilation (was in bed for 3 weeks due to sciatica prior to this incide nt, provoking factor). This was her 2nd PE.Sent home on elquis 10 BID. US on 04/27:Acute DVT rt popliteal vein, left popliteakl vein, left posterior tibial vein, left peroneal vein.)CT scan: diffuse bilaterla PE.ECho:Ef 65%, moderately dilated rt ventricle, Distal apical RV strain c/w acute PE. Rt atrium moderately enlarged.RVSP 66(was 34, severe pulm HTN, dilated IVC) Status: Resolved as of 28-Sep-2016 Puncture wound (T14.8XXA, 879.8) Status: Inactive as of 25-Jul-2017 radiculopathy Status: Inactive as of 11-Mar-2009 Rash (R21, 782.1) Comments: Leukoclastic cellulitis suspect if not better with prednisone, ? work up vaculitis or biopsys Status: Resolved as of 17-Jan-2011 screen Status: Inactive as of 17-Jan-2011 screening Status: Inactive as of 11-Mar-2009 screening Status: Inactive as of 11-Dec-2013 screening Status: Inactive as of 11-Dec-2013 screening Status: Inactive as of 20-Apr-2011 screening Status: Inactive as of 11-Dec-2013 SCREENING EXAMINATION FOR PULMONARY TUBERCULOSIS (Z11.1, V74.1) Status: Inactive as of 11-Dec-2013 Screening for osteoporosis (Renamed from Encounter for screening for osteoporosis) (Z13.820, V82.81) Comments: DEXA scan Status: Inactive as of 25-Jul-2017 Sepsis with hypotension (A41.9, 038.9) Status: Resolved as of 03-Nov-2016 shingles Status: Resolved as of 02-Mar-2009 Sinus congestion (R09.81, 478.19) Status: Inactive as of 03-Nov-2016 Sinus congestion (R09.81, 478.19) Status: Resolved as of 10-Nov-2017 Sinusitis, bacterial (J32.9, 473.9) Status: Resolved as of 10-Nov-2017 Sinusitis, bacterial (J32.9, 473.9) Status: Inactive as of 03-Nov-2016 Sleep disorder (G47.9, 307.40) Comments: chronic stable-continue present regimen Status: Inactive as of 28-Oct-2015 SOB (shortness of breath) on exertion (R06.02, 786.05) Comments: See referral letter from [facility] REspiratory scanned document Dr Munguia saw sibilia- and he said her function is good- she is better but sometimes with heavy exertion bothers her- per DF last note on this dx Status: Inactive as of 25-Jul-2017 Sun-damaged skin (L57.8, 692.79) Status: Inactive as of 25-Jul-2017 Unspecified condition of the tongue (529.9) Status: Resolved as of 17-Jan-2011 Unspecified Diagnosis Status: Inactive as of 11-Dec-2013 Wheezing (R06.2, 786.07) Status: Resolved as of 21-Oct-2010 Procedures Procedure Dates Details Appendectomy Completed Hysterectomy; Total Completed Chatterjee - eye, Nuris - Cardio, Basali - Pain, Vellanki - Rheum, Completed Jabour - GI, Sibilia and Obrych, surgical decompression /fusion c3-c6- 2013- Iván Completed Date Value Details 07-May-2018 Discharge Instruction Result: Comments: See Note; NOTES: [facility] Medical Records Department [address] [place] [address] Discharge Instruction 05/07/18 0931 MR#: [id number] Acct: [id number] Name: CAROL ANNRadha CHAMBERLAIN Toni Rep #: [id number] : 1945 72 From: Parminder Blanco MD PCP: Margarita Drake DO Status: DEP ER ED Disposition - Plan for ED Patient: Disposition: Home or Assisted Living Chief Complaint : General Illness Instructions: ED Gastroenteritis Viral Prescriptions: Ondansetron [Zofran Odt] 4 mg PO Q4H PRN PRN #10 tab.rapdis PRN Reason: Nausea Referrals: Margarita Drake DO [Primary Care Provid er] - 1-2 Days if not improving Additional Instructions: plenty of fluids and rest. Zofran as needed for nausea. Follow-up your primary care physician if not improving or return worse. What to do i f you have Problems For any increased pain, shortness of breath, bleeding, nausea or vomiting, chest pain, or any unexpected problems, contact your Primary Care Provider. Call [facility] ) or report to the closest Emergency Room. Call 911 if necessary. 05/07/18 1545 <Electronically signed by Parminder Blanco MD> Date J brent Blanco MD Cosigner Signature (If Indicated): Date CC: Margarita Drake DO 07-May-2018 Emergency Department Summary Result: Comments: See Note; NOTES: [facility] Medical Records Department [address] [place] [address] Emergency Department Summary 05/07/18 0838 MR#: [id number] Acct: [id number] Name: MAR MAHARAJ Rep #: [id number] : 1945 72 From: Parminder Blanco MD PCP: Margarita Drake DO Status: DEP ER - ER Visit Summary Date of Service: 05/07/18 Chief Complaint: Nausea, vomiting and diarrhea History of Present Illness: The patient is a 72 F has a past medical history of valvular heart disease, hypertension, cholesterol spinal stenosis and multiple surgeries. Patient states she zoran t to [employer] game on Monday. And she developed nausea vomiting and diarrhea days. Denies any hematemesis. Denies any melena. She has had fever and chills. She really denies any signif icant abdominal pain. Physical Examination: Older female vital signs are stable she is afebrile temperature 98. Pulse is 99% on room air no signs of hypoxia. She does not look septic. She does appear t o be dehydrated. H EENT exam dry mucous membranes otherwise unremarkable. No facial droop. Pupils are round reactive light. Equal symmetrical. Neck nontender. No lymphadenopathy. Lungs clear to ausculta tion bilaterally. Heart regular rhythm. Abdomen is soft, nontender, nondistended normal bowel sounds without peritoneal signs. No hernias or masses. No signs of obstruction. She is moving all 4 extremit ies. They are neurovascularly intact. Back is nontender. Neurologically she is awake and alert with no focal motor deficits. Test Results: CBC shows a white count of 7. H AND H of 14 and 43. No bands. Electrolytes unremarkable gap of 10. Creatinine is 0.7. Emergency Department Course and Treatment: Patient be treated with IV fluids and IV Zofran. Clinically and historically this is consistent with a viral gastroenteritis. An IV Zofran. She was given a p.o. fluid challenge and she is able to hold fluids down she will be discharged home with Zofran. Treatment Plan: Zofran 4 mg as needed for nausea. Follow-up with primary care physician as needed or return if worse. Disposition: Discharge Impression: Acute nausea, vomiting and diarrhea secondary to gastroenteritis Dehydration This note was ge nerated with ChiScan dictation software. It may contain incorrect words, spelling, and punctuation that were not noted in review of the chart prior to signing ED Disposition - Plan for ED Patient: Chi ef Complaint: General Illness Referrals: Margarita Drake, DO [Primary Care Provider] - What to do if you have Problems For any increased pain, shortness of breath, bleeding, nausea or vomiting, ches t pain, or any unexpected problems, contact your Primary Care Provider. Call [facility] ([phone]) or report to the closest Emergency Room. Call 911 if necessary. 05/07/18 1545 <Elec tronically signed by Parminder Blanco MD> Date Parminder Blanco MD Cosigner Signature (If Indicated): Date CC: Margarita Drake DO 22-Feb-2018 Downtime Report Result: Comments: See Note; NOTES: [facility] Medical Records Department [address] [place] [address] Downtime Report MR#: [id number] Acct: [id number] Name: MAR MAHARAJ Rep #: [id number] : 1945 72 From: Gilson Washington PCP: Margarita Drake DO Status: REG CLI This patient was seen during an EMR downtime February 05, 2018 - February 12, 2018. This patient may have a combination o f paper and electronic documentation or all paper documentation. All documentation is viewable within the e-chart portion of [facility] for each patient visit. 08-Feb-2018 Spine Lumbar (Routine) Result: Comments: See Note; NOTES: [facility] Imaging Services [address] [place] [address] Spine Lumbar (Routine) MR#: [id number] Acct: [id number] Name: MAR MAHARAJ Rep #: [id number] : 1945 F 72 From: Dylan Donato MD PCP: Margarita Drake DO Status: REG CLI Study: Spine Lumbar (Routine) Date of Exam: 02/08/18 Exam# [id number] Ordering Dr: Jose Alejandro Yepez STUDY: MRI LUMBAR SPINE WITHOUT CONTRAST REASON FOR EXAM: Female, 72 years old. Bilateral leg pain and numbness TECHNIQUE: Standardized fat and water weighted pulse sequences were obtained in the sagittal and ax ial planes. COMPARISON: 02/14/2017 FINDINGS: T12-L1: Normal endplates. Normal disc height, hydration and morphology. Normal bilateral facet joints. Normal central c anal and bilateral lateral recesses. Normal bilateral intervertebral neural foramina. Stable grade 1 L4-5 anterolisthesis. Mild dextroconvex scoliosis. Normal conus medullaris that terminates at the L1 level. Bilateral posterior pedicle fusions at L1, L2, L4, and L5. Right pedicle fusion at L3. Bone harvesting from both kerry. Bilateral laminectomies from L1 to through L5-S1. L1-2: Bulging annulus wi th moderate left foraminal stenosis. L2-3: Bulging annulus with moderate left foraminal stenosis. L3-4: Residual disc osteophyte complex with moderate bilateral foraminal stenoses. L4-5: Residual dis c osteophyte complex with moderate right and mild left foraminal stenoses. L5- S1: Bulging annulus and central disc protrusion with moderate left lateral recess stenosis and moderate bilateral foraminal stenoses. Normal visualized sacral ala. Normal visualized paraspinous soft tissue structures. MRI/Spine Lumbar (Routine) IMPRESSION: Multileve l degenerative and postoperative change as described. Moderate foraminal stenoses on the left at L1-2, on the left at L2-3, bilaterally at L3-4, on the right at L4-5, and bilaterally at L5-S1. Moderate left lateral recess stenosis at the L5-S1 level. Electronically Signed: Dylan Donato MD at 0:46 EDT Tel , Service support , CC: NICO YEPEZ; Margarita Drake DO Tile Molder Hand: Signed 08-Feb-2018 Spine Lumbar without Contrast Result: Comments: See Note; NOTES: [facility] Imaging Services [address] [place] [address] Spine Lumbar without Contrast MR#: [id number] Acct: [id number] Name: MAR MAHARAJ Rep # : [id number] : 1945 F 72 From: Robles Mejia PCP: Margarita Drake DO Status: REG CLI Study: Spine Lumbar without Contrast Date of Exam: 02/08/18 Exam# [id number] Ordering Dr: Jose Alejandro Yepez STUDY: C T LUMBAR SPINE WITHOUT CONTRAST REASON FOR EXAM: Female, 72 years old. Low back pain RADIATION DOSAGE (If Supplied By Facility): CTDIvol = ( 16.20 ) mGy, DLP = ( 378.74 ) mGycm TECHNIQUE: The patient was scanned in a multi detector CT scanner. High resolution transaxial imaging was performed. Images were obtained from T12 to S1. Sagittal and coronal images were reconstructed. Individualized dose o ptimization techniques were used for this CT. COMPARISON: 08/04/2017 x-ray FINDINGS: Anterolisthesis L4 on L5. There is no substantial scoliosis. Demineralization. Bilateral pedicle screws L1-L5. The right L3 pedicle screw appears to be broken. No left L3 pedicle screw identified. Demineralization. L1-2: Degenerative disc disease. Stable L1 superior endplate stock ge. Laminectomy. Bilateral neural foraminal narrowing. L2-3: Degenerative disc disease. Laminectomy. No central canal stenosis. Mild left neural foraminal narrowing. L3-4: Degenerative disc disease. L aminectomy. No central canal stenosis. Left neural foraminal narrowing. L4-5: There is a 4 mm anterolisthesis L4 on L5. Laminectomy. Bilateral neural foraminal narrowing. L5-S1: Degenerative disc dise ase with vacuum phenomena. Laminectomy. No central canal stenosis. Bilateral neural foraminal narrowing. Normal visualized paraspinous soft tissue structures. ORDE R #: [id number] CT/Spine Lumbar without Contrast IMPRESSION: Multilevel degenerative change discussed above. Hardware as described. Right L3 pedicle screw appears broken. Grade 1 anterolisthesis of L4 on L5. Laminectomies. Demineralization. Electronically Signed: Robles Mejia DO at 10:57 EDT , Service support , CC: JOSE ALEJANDRO Drake DO Tile Molder Hand: Signed 09-Jan-2018 Pulmonary Visit Report Result: Comments: See Note; NOTES: [facility] [address] [place] [address] OFFICE VISIT Date of Service: 01/09/18 MR#: [id number] Acct: [id number] Name: MAR HOLLIDAY Rep #: [id number] : 1945 Provider: Adair Wu MD Age/Sex: 72/F [place] [facility] [place] Status: Signed Assessment AND Plan Problems 1. Hx pulmonary embolism Z86.711 2. Other secondary pu lmonary hypertension I27.29 3. Nocturnal hypoxemia G47.34 Plan Patient overall feels that she is back to her baseline at this time. Patient is requesting removal of nocturnal oxygen. Patient has had re solution of pulmonary embolism and is no longer on blood thinners. The discussed with the patient about the role of nocturnal oximetry in ruling out any current nocturnal symptoms. Patient does not have a body habitus consistent with obstructive sleep apnea. After exhaustive review of patient's clinical picture, nocturnal oxygen will be discontinued. Patient will follow up with Dr. Lawler on a regular basis for elevated pulmonary artery pressures. Follow-up as needed. Okay to discontinue supplemental oxygen. HPI 6 M FU: Chief Complaint: Requesting removal of oxygen Details: Patient is a 72-year-o ld female, currently in the care of Dr. Drake, who presents for evaluation secondary to requesting removal of oxygen. Since last visit, patient does report that she went to the ER with a bro aman rib and had a pain shot. Patient denies any hospitalizations or prednisone burst otherwise. Patient also reports that she has been taken off her allergy shots by ENT. Patient has not noted any worse abelardo in symptoms following cessation of allergy shots. Patient is currently on no blood thinners given her diagnosis of previous pulmonary embolism. Patient is denying any lower extremity edema, pain i n the calf or sudden onset of shortness of breath. No hemoptysis is been reported. Patient does report some limitation to exercise tolerance, but states that is typically her back pain that limits what she is able to do, not her respiration. Patient states she has not been compliant with supplemental oxygen at night. Patient states that she does not feel that this makes a difference and she also stat es that she is not having any headache when she wakes up in the morning. Patient does not report any snoring at baseline. Patient states that she has remained relatively active following her grandson wh o plays college baseball. Patient currently uses no inhalers. Patient denies any smoking history. Patient denies any noxious exposures. Patient does follow up with Dr. Lawler on a regular basis for mult iple heart issues. Intake Vital Signs01/09/18 Height 5 ft 4 in 01/09/18 Weight: 72.575 kg Intake Visit Reasons: 6 M FU Chief Complaint: Follow up Client Experience Consultant Required: No DME Vendor: [employer] Accompanie d by: Self Is patient in pain?: Yes Allergies rosuvastatin calcium [From Crestor] Allergy (Verified 01/09/18 12:33) Itching simvastatin Allergy (Verified 01/09/18 12:33) Itching Medications Pantopra zole Sodium [Protonix] 40 mg PO BID 01/22/17 [History Confirmed 12/03/17] Amlodipine Besylate/Benazepril [Amlodipine-Benazepril 10-20 mg] 1 ea PO DAILY 05/22/17 [History Confirmed 12/03/17] Acyclovir [Z ovirax] 400 mg PO BID PRN PRN 05/23/17 [History Confirmed 12/03/17] Carvedilol [Coreg] 3.125 mg PO DAILY 05/23/17 [History Confirmed 12/03/17] Magnesium Oxide [Mag-Ox 400] 400 mg PO BID 05/23/17 [Histor y Confirmed 12/03/17] Metformin HCl [Metformin HCl ER] 1,000 mg PO 1700 05/23/17 [History Confirmed 12/03/17] Metformin HCl [Metformin HCl ER] 500 mg PO 0800 05/23/17 [History Confirmed 12/03/17] Acetam inophen [Tylenol Tablet] 650 mg PO Q6H PRN PRN tab 05/24/17 [Rx Confirmed 12/03/17] gabapentin 400 mg capsule 800 mg PO TID cap 10/11/17 [History Confirmed 12/03/17] hydrochlorothiazide 25 mg tablet 25 mg PO QDAY 10/11/17 [History Confirmed 12/03/17] potassium chloride ER 20 mEq tablet,extended release(part/cryst) 20 meq PO QDAY tab 10/11/17 [History Confirmed 12/03/17] duloxetine 60 mg capsule,delaye d release 60 mg PO QDAY 10/12/17 [History Confirmed 12/03/17] Hydrocodone Bitart/Apap 5-325 [Mesa 5MG-325MG] 1 tab PO Q6H PRN PRN 3 Days #10 tab 12/03/17 [Rx] sodium chloride 0.65 % nasal spray aerosol 2 spray INTRANASAL QHS ml 01/09/18 [History Confirmed 01/09/18] WAK[facility]ED [facility] Medical History Hyperlipidemia (Chronic) Elevated blood pressure reading without diagnosis of hypertension (Chronic) 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 (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) Nonrheumatic aortic (valve) insufficiency (Chronic) Nonrheumatic tricuspid (valve) insufficiency (Chronic) Other seco ndary pulmonary hypertension (Chronic) Nonischemic cardiomyopathy (Chronic) Fatigue (Chronic) Hx pulmonary embolism (Resolved) Takotsubo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 Chronic (6) Depression Status: Chronic (7) Diabetes mellitus type 2, diet-c ontrolled Status: Chronic (8) Fibromyalgia Status: Chronic (9) GERD (gastroesophageal reflux disease) Status: Chronic (10) History of total right hip replacement Status: Chronic (11) Hypertension St atus: Chronic (12) Insomnia Status: Chronic (13) Lumbar spinal stenosis Status: Chronic (14) Osteoarthritis of left knee Status: Chronic (15) Sinusitis, chronic Status: Chronic (16) Takotsubo cardi omyopathy Status: Chronic (17) chairi malformations/p posterior decompr Status: Chronic (18) Hypokalemia Status: Acute History of Present Illness Date of Admission: 05/22/17 Chief Complaint: confusio n The patient is a 71 year old F who is brought in by the patient's significant other for confusion. Patient is confused and unable to provide any history and no family is present currently social hist ory obtained through the emergency room physician. Concern the patient may have taken too much of her morphine and patient presents with increasing confusion. Unable to ascertain further beyond that. Yadira elliott was seen here a week ago for nausea and vomiting and diagnosed with urinary tract infection which she apparently completed the antibiotics for. Patient did have an abnormal urinalysis but not defi nitively convincing for urinary tract infection. Patient did have Rocephin ordered in the emergency room. 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) Chronic pain syndrome (Chronic) Depression (Chronic) Diabetes mellitus type 2, diet-controlled (Chronic) Fibromyalgia (Chronic) GERD (gastroesophageal reflux disease) (Chronic) GI (gastrointestinal bleed) (Chronic) History of total ri ght hip replacement (Chronic) Hypertension (Chronic) Insomnia (Chronic) Lumbar spinal stenosis (Chronic) Osteoarthritis of left knee (Chronic) Sinusitis, chronic (Chronic) 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) chairi malformations/p posterior decompr (Chronic) Allergies rosuvastatin calcium [From Crestor] Allergy (Verified 05/22/17 14:56) Itching simvastatin Allergy (Verified 05/22/17 14:56) Itching Home Medications: Ambulatory Orders Medication Instructions Recorded Duloxetine Hcl [Cymbalta] 30 mg PO TID 09/18/16 Surgical History: appendectomy, cholecystectomy, hysterectomy, total hip arthropl asty - Right 2003, revision 2013., total knee arthroplasty - Right, 08/19/2014., - - Brain Surgery for Budd Chiari x 2, Bilateral carpal tunnel release, cervical surgery 12/2013, Laminectomy 2000, 7 back surgeries Psychiatric History: Anxiety, Depression [employer]IST History: ovarian cancer - Status post bilateral oophorectomy 1969. Smoking Status: Never smoker - *Family History Maternal History Items: Canc er - breast cancer Paternal History Items: Cancer, Pulmonary Disease - Emphysema Review of Systems Unable to obtain accurate/complete ROS d/t: Patient is confused and unable to give a adequate revi ew of systems. VTE Information - Inpt Only VTE Present on Admission: No VTE Pharm Prophylaxis ordered?: Yes Patient Problems: Active and Suspected Problems Delirium (Acute) Hypokalemia (Acute) - Ph ysical Exam General: - - Pleasantly confused. Oriented to self and place. When asked the dates patient initially started tell me her birthdate and then when asked again she started rambling some other s tatements that were completely unrelated. HEENT: Atraumatic, PERRLA, EOMI, Normocephalic Oral: No Gingival or Mucosal Lesions/ Ulcerations, Dry Mucosa Neck: No Nodes, Thyroid Normal Size and Texture Magdaleno gs: Clear to auscultation, Normal air movement, No rhonchi, No wheeze Cardiovascular: Regular rate, Regular Rhythm, Normal S1, Normal S2, No murmurs Abdomen: Bowel Sounds Present, Soft, Non Tender, Non- Distended Extremities: No edema, No Calf Tenderness Neurological: Cranial nerves II-XII grossly intact, Motor Exam 5/5 strength throughout Psych/Mental Status: Normal Affect, - - Confused Vital Signs T emp Pulse Resp BP Pulse Ox 36.4 C 88 17 135/57 93 05/22/17 14:54 05/22/17 17:04 05/22/17 17:04 05/22/17 17:04 05/22/17 17:04 Oxygen Flow Rate 2 Oxygen Delivery Method Nasal Cannula Weight: 62.596 kg Body Mass Index (BMI) 22.9 Finger Stick Blood Glucose 172 Laboratory Tests Past 24 Hrs Clinical Impression(s) from Imaging Studies Brain CT 05/22/17 15:15 IMPRESSION: No acute intracranial abnormali ty. Age-related changes of the brain. Electronically Signed: Dorothy Barber MD at 16:42 EDT Tel , Service support , Chest X-Ray 05/22/17 15: 15 IMPRESSION: No acute intrathoracic process. Electronically Signed: Dorothy Barber MD at 16:49 EDT Tel , Service support , Assessment/Pl an Active and Suspected Problems Delirium (Acute) Hypokalemia (Acute) 1. Acute delirium: * I am unclear what her typical baseline status is but apparently is better than what she has right now. * I was pretty unimpressed with the patient's urinalysis for urinary tract infection, so do not feel that that is a culprit. I would be more concerned about the patient's medications. The emergency room marti barbara stated that the patient's significant other told her that she may have taken too much of her morphine. I feel that is the more likely culprit in regards to her acute delirium at this time. So in the meantime, I am going to hold off on her narcotics as well as gabapentin. Allow her sensorium to further clear. 2. Chronic pain * As above, I am holding off of potentiating medications. I have revie wed the patient's OARRS, and shows that she has been compliant with seeing her pain management doctor, Dr. Betts. * She had prescription for morphine sulfate 15 mg on May 16, 800 mg tablets by malena blackmon on May 03 and 5/325 Percocets on the as well. Additionally, patient receives 5 mg oxycodone once #60 on April 25 and by 2 different providers. 3. Hypokalemia: * Continue to replace and follow up in the morning. 4. DVT prophylaxis with low molecular weight heparin 05/22/17 1817 <Electronically signed by Edward Chao DO> Date Edward Chao DO Cosigner Signature (if applicable): Date CC: Ann Marie Khanh; Edward Chao DO Signed 22-May-2017 Emergency Department Summary Result: Comments: See Note; NOTES: [facility] Medical Records Department [address] [place] [address] Emergency Department Summary 05/22/17 1707 MR#: [id number] Acct: [id number] Name: MAR MAHARAJ Rep #: [id number] : 1945 71 From: Angelo William MD PCP: Ann Marie Cassidy Status: REG ER - ER Visit Summary Date of Service: 05/22/17 Chief Complaint: Confused History of Present Illness: The patient is a 71 F who presents with confusion. She fell in the hallway today. She does have a small bruise on the right side of her head. She called her boyfriend this morning and he state s she was extremely confused. She thought that he was at a football game when he was out golfing. She also has had visual hallucinations. She was seeing a tractor in the yard that was not there. She als o states that she saw her grandson on her bed and he was not there. She had some nausea and vomiting last week which has since resolved. She had back surgery 5 weeks ago and was started on morphine. She was complaining of some increased pain but does not appear to be in pain currently so the boyfriend was concerned she may have taken extra morphine. No fevers. No illness in the past few days. Boyfrien d states she was normal yesterday. Physical Examination: Afebrile vitals are stable Moist mucous membranes Heart regular rate and rhythm Lungs clear to auscultation Abdomen soft Patient is delirious. S he gives inappropriate answers to most questions. She does not have focal or lateralizing neurological deficits. NIH stroke scale was 2 due to missing both questions however she has normal strength and sensation. Test Results: EKG shows normal sinus rhythm at a rate of 83. Chest x-ray shows no acute process. CT head shows no acute process. Laboratory studies notable for potassium 2.9. UA shows 500 le ukocyte esterase positive nitrites 5-10 WBCs. Emergency Department Course and Treatment: Patient is exhibiting significant delirium. She does have a UTI. She was treated with IV Rocephin. She will requ jefry hospitalization. Treatment Plan: [] Disposition: Admit Impression: UTI Delirium ED Disposition - Plan for ED Patient: Chief Complaint: Confusion Referrals: Ann Marie Cassidy [Primary Care Provider] - What to do if you have Problems For any increased pain, shortness of breath, bleeding, nausea or vomiting, chest pain, or any unexpected problems, contact your Primary Care Provider. Call [facility] ([phone]) or report to the closest Emergency Room. Call 911 if necessary. 05/22/17 1710 <Electronically signed by Angelo William MD> Date Angelo William MD Cosigner Signature (If Indicated): Date CC: Ann Marie Cassidy 22-May-2017 Brain/Head without Contrast Result: Comments: See Note; NOTES: [facility] Imaging Services [address] [place] [address] Brain/Head without Contrast MR#: [id number] Acct: [id number] Name: MAR MAHARAJ Rep #: [id number] : 1945 F 71 From: Dorothy Barber MD PCP: Ann Marie Cassidy Status: REG Study: Brain/Head without Contrast Date of Exam: 05/22/17 Exam# [id number] Ordering Dr: Angelo William MD STUDY : CT BRAIN WITHOUT CONTRAST REASON FOR EXAM: Female, 71 years old. Confusion, took too many pills, diabetes, hypertension, TIA. RADIATION DOSAGE (If Supplied By Facility): CTDIvol = ( 44.99 ) mGy, DLP = ( 779.24 ) mGycm TECHNIQUE: Transaxial CT imaging of the brain was performed without administration of intravenous contrast material. Individualized dose optimization techniques w ere used for this CT. COMPARISON: September 23, 2014 FINDINGS: Normal soft tissue structures. There is hyperostosis frontalis internus. There has been a previous subo ccipital craniectomy for Chiari malformation. Normal size ventricles and extra- axial spaces for the patient's age. Chiari I malformation noted. There are areas of decreased attenuation within the white matter tracts of the supratentorial brain, consistent with microvascular disease changes. Normal basal ganglia and thalami. Normal brainstem. Normal cerebellum. There is no intracranial hemorrhage. Th ere are no findings of an acute ischemic infarction. Normal visualized paranasal sinuses. CT/Brain/Head without Contrast IMPRESSION: No acute in tracranial abnormality. Age-related changes of the brain. Electronically Signed: Dorothy Barber MD at 16:42 EDT Tel , Service support , CC: Ann Marie Cassidy; Angelo William MD Tile Molder Hand: Signed 22-May-2017 Chest 1 View (Portable) Result: Comments: See Note; NOTES: [facility] Imaging Services [address] [place] [address] Chest 1 View (Portable) MR#: [id number] Acct: [id number] Name: MAR MAHARAJ Rep #: [id number] : 1945 F 71 From: Dorothy Barber MD PCP: Ann Marie Cassidy Status: REG ER Study: Chest 1 View (Portable) Date of Exam: 05/22/17 Exam# [id number] Ordering Dr: Angelo William MD STUDY: X-RAY CHEST REASON FOR EXAM: Female, 71 years old. COUGH AND CONFUSION TECHNIQUE: Single AP portable view of the chest. COMPARISON: April 28, 2017 FINDINGS: Cardiac mo nitoring leads are present. The lungs are clear and expanded. There is no demonstrated pleural abnormality. There is mild cardiac enlargement. Normal mediastinum and karthik. Normal visualized pulmonary arteries. Normal visualized aortic arch and descending thoracic aorta. There are diffuse degenerative changes of the visualized thoracic spine. There is a lower anterior cervical fusion plate present. Normal visualized ribs, clavicles, and shoulders. There is no demonstrated abnormality of the visualized soft tissue structures of the upper abdomen. -[id number] RAD/Chest 1 View (Portable) IMPRESSION: No acute intrathoracic process. Electronically Signed: Dorothy Barber MD at 16:49 EDT Tel , Service support , CC: Ann Marie Cassidy; Angelo William MD Tile Molder Hand: Signed 17-May-2017 Emergency Department Summary Result: Comments: See Note; NOTES: [facility] Medical Records Department [address] [place] [address] Emergency Department Summary 05/17/17 1543 MR#: [id number] Acct: [id number] Name: MAR MAHARAJ Rep #: [id number] : 1945 71 From: Tab Peacock MD PCP: Ann Marie Cassidy Status: REG ER - ER Visit Summary Date of Service: 05/17/17 Chief Complaint: Nausea and vomiting History of Present Illness: The patient is a 71 F who has had nausea and vomiting since yesterday. She states she has vomited multiple times. She has had some mild cramping abdominal pain. No diarrhea. She was elías gnosed with urinary tract infection yesterday. Her urine was malodorous and she went to an urgent care and was diagnosed with a UTI. She has back pain as well. She had surgery one month ago as well. She saw her pain management physician yesterday and was also restarted on morphine. She has been on morphine and Percocet previously. She was started on antibiotic for her urinary tract infection as well s he does not know the name. Physical Examination: Vital signs reviewed. HEENT exam unremarkable. Heart is regular rate and rhythm without murmurs. Lungs are clear to auscultation. Abdomen is soft with v lashell mild suprapubic tenderness to palpation. Extremities reveal no edema. Skin exam normal. Neurologic exam normal. Test Results: CBC normal Emergency Department Course and Treatment: Patient was give n IV fluids and Zofran. During her workup the patient decided to leave AMA. Is unclear as to why at this time. Treatment Plan: Patient left AMA Disposition: AMA Impression: Nausea and vomiting ED D isposition - Plan for ED Patient: Chief Complaint: Nausea/Vomiting What to do if you have Problems For any increased pain, shortness of breath, bleeding, nausea or vomiting, chest pain, or any unex pected problems, contact your Primary Care Provider. Call [facility] ([phone]) or report to the closest Emergency Room. Call 911 if necessary. 05/17/17 1652 <Electronically signed b austin Peacock MD> Date Tab Peacock MD Cosigner Signature (If Indicated): Date CC: Ann Marie Cassidy 28-Apr-2017 Emergency Department Summary Result: Comments: See Note; NOTES: [facility] Medical Records Department [address] [place] [address] Emergency Department Summary 04/28/17 1059 MR#: [id number] Acct: [id number] Name: MAR MAHARAJ Rep #: [id number] : 1945 71 From: Tab Peacock MD PCP: Ann Marie Cassidy Status: REG ER - ER Visit Summary Date of Service: 04/28/17 Chief Complaint: Altered mental status History o f Present Illness: The patient is a 71 F who presents with altered mental status. Started this morning. Patient had back surgery 2 weeks ago. She had a fusion as well as arthritis removed from the lower back. Yesterday she started with some weakness and today the boyfriend noted that she was very confused. She feels weak all over. Denies a fever at home. She has had a slight cough. She has been having a significant amount of pain as well as tremors. Her surgeon added a muscle relaxer to her medication regimen yesterday. Denies any nausea or vomiting. Physical Examination: Vital signs reviewed. Sign ificant for temperature of 101.6, heart rate 110. HEENT exam unremarkable. Heart is regular rate and rhythm without murmurs. Lungs are clear to auscultation. Abdomen is soft and nontender. Extremities r eveal no edema. Back exam reveals diffusely tenderness in the lower part of the back. Incision is clean dry and intact without erythema. Skin exam normal. Neurologic exam normal. She is alert and orient ed 3 and answers all questions appropriately, but at times she does say things which are not true, such as she states that her boyfriend vomited yesterday but he did not. Test Results: EKG was nonspeci fic T-wave changes. Chest x-ray reveals a retrocardiac infiltrate. White blood cell count 25. Lactate 1.6 urinalysis reveals 10-25 white blood cells Emergency Department Course and Treatment: Patient w as given IV fluids. She was not hypotensive. She is septic from pneumonia and urinary tract infection. Patient was given Tylenol as well. Treatment Plan: Admission to the hospital with vancomycin and Z osyn. Disposition: Admit Impression: Abscess, UTI, healthcare associated pneumonia ED Disposition - Plan for ED Patient: Chief Complaint: Confusion Referrals: Ann Marie Cassidy [Primary Care Provider] - What to do if you have Problems For any increased pain, shortness of breath, bleeding, nausea or vomiting, chest pain, or any unexpected problems, contact your Primary Care Provider. Call [facility] ([phone]) or report to the closest Emergency Room. Call 911 if necessary. 04/28/17 1306 <Electronically signed by Tab Peacock MD> Date Tab Peacock MD Cosigner Signature (If Indicated): Date CC: Ann Marie Cassidy 28-Apr-2017 Chest 1 View (Portable) Result: Comments: See Note; NOTES: [facility] Imaging Services [address] [place] [address] Chest 1 View (Portable) MR#: [id number] Acct: [id number] Name: MAR MAHARAJ Rep #: [id number] : 1945 F 71 From: Sekou Bose DO PCP: Ann Marie Cassidy Status: REG ER Study: Chest 1 View (Portable) Date of Exam: 04/28/17 Exam# [id number] Ordering Dr: Tab Peacock MD STUDY: X-RAY CHEST R RICH FOR EXAM: Female, 71 years old. Confusion and pain TECHNIQUE: Single AP portable view of the chest. COMPARISON: 12/19/2016 FINDINGS: Lungs are hypoinflated. There is questionable left retrocardiac infiltrate. There is no demonstrated pleural abnormality. There is borderline cardiomegaly. Normal mediastinum and karthik. Normal visualized pulmonary arteries. No rmal visualized aortic arch and descending thoracic aorta. There are diffuse degenerative changes of the visualized thoracic spine. Normal visualized ribs, clavicles, and shoulders. There is no demons trated abnormality of the visualized soft tissue structures of the upper abdomen. RAD/Chest 1 View (Portable) IMPRESSION: Hypoinflated lungs with borderline cardiac enlargement and questionable left retrocardiac infiltrate Electronically Signed: Sekou Bose DO at 11:27 EDT Tel , Service support , Fax CC: Ann Marie Cassidy; Tab Peacock MD Tile Molder Hand: Signed 12-Apr-2017 Echocardiogram Complete Result: Comments: See Note; NOTES: [facility] Cardiovascular Services [address] [place] [address] Echo Complete 04/12/17 1150 MR#: [id number] Acct: [id number] Name: MAR MAHARAJ Rep #: [id number] : 1945 71 From: Sergio Lawler MD Attending Dr: Sergio Lawler MD Status: REG CLI Ordering Dr: Sergio Lawler MD Date: 04/12/17 Location: [facility] Sex: F C Admitted: Reason For Study: Pre-op clearance, Takotsubo Syndrome Procedure This was a 2D Doppler, Color Flow transthoracic echocardiogram. Exam performed in department. Left Ventricle Normal LV size. Left ventricular systolic fu nction is normal. The estimated ejection fraction is 53 %. No regional wall motion abnormalities noted. Right Ventricle Normal RV size. Normal systolic function. Atria Normal left atrium. Normal right atrium. Mitral Valve Normal mitral valve. Mild (1+) eccentric mitral valve insufficiency. Tricuspid Valve Normal tricuspid valve. Mild (1+) tricuspid valve insufficiency. Pulmonary artery systolic pre ssure is 28 mmHg. Aortic Valve Normal aortic valve. Trisinus/trileaflet aortic valve. Trivial eccentric aortic valve insufficiency. Pulmonic Valve The pulmonic valve is not well visualized. Great Ves sels Normal aortic root. The pulmonary artery is normal size. Normal inferior vena cava. Pericardium/Pleural No pericardial effusion. MMode/2D Measurements AND Calculations LVIDd: 4.3 cm IVSd: 1.2 cm Ao root diam: 3.7 cm LVIDs: 2.5 cm LVPWd: 1.1 cm LA dimension: 4.7 cm RVDd: 3.4 cm FS: 42.3 % LAV(MOD-bp): 35.3 ml LA A4 area: 14.3 cm2 RA A4 area: 16.5 cm2 LAV(MOD-bp) Indexed: 20.2 ml/m2 LAV(MOD-sp2): 35.1 ml LAV(MOD-sp4): 34.2 ml Doppler Measurements AND Calculations MV E max alok: 52.8 cm/sec Lat Peak E' Alok: 3.5 cm/s ec Med Peak E' Alok: 3.7 cm/sec MV A max alok: 92.2 cm/sec E/E' lat: 14.9 E/E' med: 14.4 MV E/A: 0.57 Ao V2 max: 138.5 cm/ sec AI max alok: 414.5 cm/sec LV V1 max: 90.6 cm/sec Ao max P.7 mmHg AI max P.8 mmHg LV V1 max P.3 mmHg AI dec slope: 242.9 cm/sec2 AI P1/2t: 499.8 msec PA V2 max: 69.0 cm/sec TR max alok: 244.2 cm/sec TR max P.9 mmHg Interpretation Summary Normal LV size. Left ventricular systolic function is normal. Th e estimated ejection fraction is 53 %. Mild (1+) eccentric mitral valve insufficiency. Mild (1+) tricuspid valve insufficiency. Compared to the previous ther is significant improvement. Ordering Physician: Sergio Lawler Referring Physician: Ann Marie Cassidy Performed By: Audra aNgy RDCS Electro nically signed by: Sergio Lawler MD on 04/12/2017 04:49 PM 04/12/17 1649 Date Sergio Lawler MD CC: Ann Marie Cassidy; Sergio Lawler MD Date Dictated: 04/12/17 1 150 Date Transcribed: 04/12/171648 Tile Molder Hand: Signed 13-Mar-2017 Finger(s) Min 2 Views Result: Comments: See Note; NOTES: [facility] Imaging Services [address] [place] [address] Verdana 4d Finger(s) Min 2 Views MR#: [id number] Acct: [id number] Name: MAR MAHARAJ Katy p #: [id number] : 1945 F 71 From: Maldonado Pablo DO PCP: Ann Marie Cassidy Status: REG CLI Study: Finger(s) Min 2 Views Date of Exam: 03/13/17 Exam# [id number] Ordering Dr: Libby Mai DO STUDY: X-RA Y - RIGHT HAND, ATTENTION INDEX FINGER REASON FOR EXAM: Female, 71 years old. Finger nail going into the proximal phalanx, soft tissue swelling. TECHNIQUE: 3 view(s) of the finger were obtained. COMP ARISON: None. FINDINGS: There is demineralization of the metacarpal head. There is mild degenerative arthrosis of the metacarpophalangeal joint. There is deminerali zation of the proximal phalanx. There is demineralization of the middle phalanx. There is demineralization of the distal phalanx. There is mild degenerative arthrosis of the proximal interphalangeal riki int. There is moderate degenerative arthrosis of the distal interphalangeal joint. RAD/Finger(s) Min 2 Views IMPRESSION: Degenerative changes ab ove with no evidence of acute osseous abnormality. Electronically Signed: Maldonado Samy at 22:01 EDT Tel [phone], Service support , CC: Ann Marie Mai DO Tile Molder Hand: Signed 15-Feb-2017 Cerv Spine 4 or 5 Views Result: Comments: See Note; NOTES: [facility] Imaging Services [address] [place] [address] Verdana 4d Cerv Spine 4 or 5 Views MR#: [id number] Acct: [id number] Name: MAR MAHARAJ Rep #: [id number] : 1945 F 71 From: Vitaly Turner MD PCP: Ann Marie Cassidy Status: REG CLI Study: Cerv Spine 4 or 5 Views Date of Exam: 02/15/17 Exam# [id number] Ordering Dr: Jose Alejandro Yepez STUDY: X -RAY - CERVICAL SPINE REASON FOR EXAM: Female, 71 years old. Cervical disc displacement TECHNIQUE: 4 view(s) of the cervical spine were obtained. COMPARISON: Prior x-rays of the cervical spine on Dec FINDINGS: Normal anterior atlantoaxial articulation. Normal odontoid process. There are no signs of instability in the lateral flexion-extension views T here is straightening of the normal cervical lordosis. Status post anterior fusion from C3 to C6. Again noted is slight extrusion of the inferior screw at the level of C6, unchanged since the prior exam ination.. The soft tissue structures are unremarkable. RAD/Cerv Spine 4 or 5 Views IMPRESSION: Status post C3-C6 anterior fusion. Stable since t he last examination. Electronically Signed: Vitaly Turner MD, FACR at 13:37 EDT , Service support , CC: Ann Marie YEPEZ Tile Molder Hand: Signed 14-Feb-2017 Spine Lumbar (Routine) Result: Comments: See Note; NOTES: [facility] Imaging Services [address] [place] [address] Anju 4d Spine Lumbar (Routine) MR#: [id number] Acct: [id number] Name: MAR MAHARAJ ep #: [id number] : 1945 F 71 From: Dylan Donato MD PCP: Ann Marie Cassidy Status: REG CLI Study: Spine Lumbar (Routine) Date of Exam: 02/14/17 Exam# [id number] Ordering Dr: Abdiel Betts MD LORNEA DY: MRI LUMBAR SPINE WITHOUT CONTRAST REASON FOR EXAM: Female, 71 years old. Low back pain and multiple prior surgeries TECHNIQUE: Standardized fat and water weighted pulse sequences were obtained in the sagittal and axial planes. COMPARISON: 02/27/2014 FINDINGS: T12-L1: Normal endplates. Normal disc height, hydration and morphology. Normal bilateral facet joint s. Normal central canal and bilateral lateral recesses. Normal bilateral intervertebral neural foramina. Stable 9 mm of anterolisthesis of L4 in relation L5. There is no substantial scoliosis. Normal c onus medullaris that terminates at the L1 level. No acute compression fracture. Bilateral posterior pedicle fusions are present at the L3, L4, and L5 levels. Metallic artifact is present posteriorly at the L1 level which is unchanged. L1-2: Disc space narrowing and desiccation. Disc osteophyte complex with bilateral facet and ligamentum flavum hypertrophy. Moderate central canal stenosis and severe l eft lateral recess stenosis. Moderate to severe bilateral foraminal stenoses. L2-3: Disc desiccation. Circumferential bulging annulus with bilateral facet and ligamentum flavum hypertrophy. Moderate ce ntral canal stenosis and moderate bilateral foraminal stenoses. L3-4: Bilateral laminectomies at been performed. Moderate residual bilateral foraminal stenoses. L4-5: Bilateral laminectomies at been p erformed. Residual moderate to severe right and moderate left foraminal stenoses. L5-S1: Bilateral laminectomies of been performed. Disc space narrowing and desiccation. Bulging annulus and central dis c protrusion. Disc material deflects the transiting left S1 nerve root. Bilateral facet hypertrophy. Moderate residual bilateral foraminal stenoses. Normal visualized sacral ala. Normal visualized par aspinous soft tissue structures. A small cyst is present in the left kidney. MRI/Spine Lumbar (Routine) IMPRESSION: 1. Overall, stable multilevel degenerative and postoperative changes. No acute compression fracture. 2. Stable grade 1 L4-5 anterolisthesis. 3. Severe left lateral recess stenosis at the L1- 2 level. Moderate to severe foraminal jeannine noses are present bilaterally at L1-2 and on the right at L4-5. 4. Disc material deflects the transiting left S1 nerve root at the L5-S1 level. Electronically Signed: Dylan Donato, at 4 :36 EDT Tel , Service support , CC: Ann Marie Cassidy; Abdiel Betts MD Tile Molder Hand: Signed 22-Jan-2017 Abdomen/Pelvis without Cont Result: Comments: See Note; NOTES: [facility] Imaging Services [address] [place] [address] Verdana 4d Abdomen/Pelvis without Cont MR#: [id number] Acct: [id number] Name: JOHN MAHARAJ Rep #: [id number] : 1945 F 71 From: Jeb Piedra MD PCP: Ann Marie Cassidy Status: REG ER Study: Abdomen/Pelvis without Cont Date of Exam: 01/22/17 Exam# [id number] Ordering Dr: Stacy Corey MD STUDY: CT ABDOMEN AND PELVIS WITHOUT CONTRAST REASON FOR EXAM: Female, 71 years old. VOMITING AND DIARRHEA, HX OF UTERINE CANCER/KERRY AND BSO, GB, BACK AND RIGHT HIP SURG. MAR IMAGES AVAIL. RAD IATION DOSAGE (If Supplied By Facility): CTDIvol = ( 8.47 ) mGy, DLP = ( 417.72 ) mGycm TECHNIQUE: Transaxial images were obtained from the dome of the diaphragm to the symphysis pubis without oral con trast, and without intravenous contrast. Sagittal and coronal images were reconstructed. Individualized dose optimization techniques were used for this CT. COMPARISON: None. FINDINGS: The visualized lung bases are unremarkable. The visualized portions of the heart are within normal limits. Normal liver. There are surgical clips in the gallbladder fossa consisten t with a prior cholecystectomy. Normal spleen. Normal pancreas. Normal bilateral adrenal glands. Normal right kidney. Normal left kidney. Normal visualized stomach. Normal small intestine. There are multiple colonic diverticula consistent with diverticulosis. There is thickening of the shaw of the ascending, transverse and descending colon suggesting colitis. There is non-visualization of the appe ndix. Normal abdominal aorta. Normal inferior vena cava. Normal retroperitoneum. Normal urinary bladder. Normal abdominal wall. There are diffuse degenerative changes of the visualized lumbar spine. CT/Abdomen/Pelvis without Cont IMPRESSION: There is thickening of the shaw of the ascending, transverse and descending colon suggesting colitis. Electronically Signed: Jeb Piedra MD at 10:29 EDT Tel , Service support , CC: Ann Marie Cassidy; Noelle Corey MD Tile Molder Hand: Signed 25-Dec-2016 Venous Duplex Lower Extremity Result: Comments: See Note; NOTES: [facility] Cardiovascular Services [address] [place] [address] Venous Duplex US, Unilateral 12/23/16 1042 MR#: [id number] Acct: [id number] Name: MAR DEAN Rep #: [id number] : 1945 71 From: David Hawthorne MD Attending Dr: Glenn Ro Status: REG CLI Ordering Dr: Glenn Ro Date: 12/23/16 Location: CVS Sex: F C Admitted: Naveed redmond For Study: Pain LLE RIGHT LEFT CFV is compressible, spontaneous, phasic, GSV is normal. competent and demonstrates normal CFV is compressible, spontaneous, phasic , augmentation. competent, and d emonstrates normal Procedure augmentation. Exam performed in department. FV is compressible, spontaneous, phasic, A preliminary report was called and/or faxed competent and demonstrates normal to Chitra Ro. augmentation. POP V is compressible, spontaneous, phasic, competent and demonstrates normal augmentation. T/P Trunk is compressible. PTV is compressible. LT PerV is compressible. Hypoechoic, n on vascular structure noted Lt Pop Fossa measuring 1.22cm x 2.31cm. Interpretation Summary Deep veins of the left lower extremity are patent and compressible segmentally. There is no evidence of left l ower extremity deep vein thrombosis. Valvular competence appears intact within the proximal deep venous system on the left . The left greater saphenous vein appears patent and compressible segmentally. A non-vascular, hypoechoic structure is noted in the left popliteal space, measuring 1.22 cm x 2.31 cm. This probably represents a popliteal cyst. Clinical correlation is advised. Ordering Physician: Glenn Ro Referring Physician: Ann Marie Cassidy Performed By: Elizabeth Koehler, JULIETA, RVT Electronical ly signed by: David Hawthorne MD on 12/25/2016 07:37 PM 12/25/161936 Date David Hawthorne MD CC: Ann Marie Cassidy; Glenn Ro Date Dictated: 12/23/16 1042 Date Transcribed: 12/25/161936 Tile Molder Hand: Signed 19-Dec-2016 Chest 1 View (Portable) Result: Comments: See Note; NOTES: [facility] Imaging Services [address] [place] [address] Verdana 4d Chest 1 View (Portable) MR#: [id number] Acct: [id number] Name: MAR MAHARAJ Rep #: [id number] : 1945 F 71 From: Alfa Bettencourt MD PCP: Ann Marie Cassidy Status: REG ER Study: Chest 1 View (Portable) Date of Exam: 12/19/16 Exam# [id number] Ordering Dr: Edin Rodriguez MD STUDY: X- RAY CHEST REASON FOR EXAM: Female, 71 years old. Fever and cough TECHNIQUE: Single AP portable view of the chest. COMPARISON: None. FINDINGS: EKG leads overlie th e chest The lungs are clear and expanded. There is no demonstrated pleural abnormality. Normal size heart. Normal mediastinum and karthik. Normal visualized pulmonary arteries. Normal visualized aortic a rch and descending thoracic aorta. There are diffuse degenerative changes of the visualized thoracic spine. Normal visualized ribs, clavicles, and shoulders. There is no demonstrated abnormality of th e visualized soft tissue structures of the upper abdomen. RAD/Chest 1 View (Portable) IMPRESSION: No acute pulmonary process Electronically Sign ed: Eddie Bettencourt MD at 13:47 EDT Tel , Service support , CC: Ann Marie Cassidy; Edin Rodriguez MD Tile Molder Hand: Signed 19-Dec-2016 Abdomen/Pelvis without Cont Result: Comments: See Note; NOTES: [facility] Imaging Services [address] [place] [address] Verdana 4d Abdomen/Pelvis without Cont MR#: [id number] Acct: [id number] Name: JOHN MAHARAJ Rep #: [id number] : 1945 F 71 From: Alfa Bettencourt MD PCP: Ann Marie Cassidy Status: REG ER Study: Abdomen/Pelvis without Cont Date of Exam: 12/19/16 Exam# [id number] Ordering Dr: Edin Rodriguez MD TUDY: CT ABDOMEN AND PELVIS WITHOUT CONTRAST REASON FOR EXAM: Female, 71 years old. Vomiting x1 week RADIATION DOSAGE (If Supplied By Facility): CTDIvol = ( 10.45 ) mGy, DLP = ( 480.49 ) mGycm TECHNI QUE: Transaxial images were obtained from the dome of the diaphragm to the symphysis pubis without oral contrast, and without intravenous contrast. Sagittal and coronal images were reconstructed. Indiv idualized dose optimization techniques were used for this CT. COMPARISON: None. FINDINGS: There are chronic interstitial fibrotic changes of the lung bases. There i s mild cardiomegaly. Normal liver. There are surgical clips in the gallbladder fossa consistent with a prior cholecystectomy. Normal spleen. Normal pancreas. Normal bilateral adrenal glands. Normal r ight kidney. Normal left kidney. There is a small hiatal hernia. Normal small intestine. The colon is normally distended but fluid-filled suggesting underlying gastroenteritis. Scattered diverticulosis noted, no CT evidence of acute diverticulitis. There is non-visualization of the appendix. There is diffuse atherosclerotic calcification of the abdominal aorta, without a demonstrated aneurysm. Cat l inferior vena cava. Normal retroperitoneum. Normal urinary bladder. There is absence of the uterus consistent with a prior hysterectomy. There is a fat- containing ventral hernia on axial image 49 wi th localized induration of the subcutaneous fat but no evidence of ileus or obstruction. There are diffuse degenerative and postsurgical changes of the visualized lumbar spine. CT/Abdomen/Pelvis without Cont IMPRESSION: Nondistended fluid-filled colon suggests gastroenteritis. Scattered colonic diverticulosis noted, no CT evidence of acute diver ticulitis. No suspicious solid organ abnormality Extensive degenerative bony changes with postsurgical changes noted in the lumbar spine Interstitial fibrotic changes in the lung bases Electronicall y Signed: Eddie Bettencourt MD at 12:48 EDT Tel , Service support , CC: Ann Marie Cassidy; Edin Rodriguez MD Tile Molder Hand: Signed 15-Dec-2016 Emergency Department Summary Result: Comments: See Note; NOTES: [facility] Medical Records Department [address] [place] [address] Emergency Department Summary MR#: [id number] Acct: [id number] Name: JOHN MAHARAJ Rep #: [id number] : 1945 71 From: Sheila Amaya MD PCP: Ann Marie Cassidy Status: DEP ER DATE OF SERVICE: 12/13/2016 HISTORY OF PRESENT ILLNESS: The patient presents for nausea, vomiting and elías rrhea. The patient states symptoms started yesterday. She has had associated chills and sweats. She denies any chest pain or shortness of breath. She does endorse getting a left total knee replacement 3 weeks ago and states her knee has been hurting ever since, but is worse since yesterday. She endorses history of prior DVT and PE, hypertension, also states she had pneumonia 6 weeks ago, describes her diarrhea as loose stool without blood. Only 2 episodes today, but has had multiple episodes of vomiting. PHYSICAL EXAMINATION: VITAL SIGNS: Reviewed. The patient is afebrile, hemodynamically stable, h eart rate 101, 97% on room air, no hypoxia. GENERAL: The patient is well nourished and well developed, lying in bed. SKIN: Flushed and moist. HEENT: Pupils are equal, round, reactive to light. Extraocul ar movement is intact. Mucous membranes are moist. NECK: Supple. HEART: Regular rhythm, tachycardic rate. No murmurs. LUNGS: Clear to auscultation bilaterally. No adventitious sounds. ABDOMEN: Soft, ten felix. No guarding, no rebound. Bowel sounds are hypoactive. BACK: Nontender. EXTREMITIES: Left lower extremity shows tenderness in the knee and distal with some edema. The patient has a well healing ante rior vertical incision over the left patella. Pulses are 2+ and symmetric in distal extremities. Sensation and motor function intact. Remainder of exam is unremarkable. EMERGENCY DEPARTMENT COURSE: The patient is presenting mainly with complaint of nausea and vomiting multiple times. She has only had 2 episodes of loose stool so unsure if this is related to her pain medication she is taking or relate d to the nausea and vomiting. Thus, a workup was performed for cardiopulmonary issues as well as abdominal. EKG showed a sinus rhythm without ischemia or ectopy. CBC showed no leukocytosis. Chemistry pa mara did show hypokalemia of 3. The patient is on potassium supplementation for known potassium issues. Hepatic function was unremarkable. INR is 1.3. Urine is negative for infection. Troponin is negativ e, lactate within normal range of 1.5. Chest x-ray showed no acute process. CT of the abdomen and pelvis did show mild ascending colitis, which is likely the source of the patient's symptoms. Zofran and morphine were given for symptomatic relief. The patient also received IV hydration. Because the patient was complaining of the worsening pain in her left lower extremity and does have history of DVT a nd PE as well as the recent surgery, ultrasound was performed of the left lower extremity to assess for possible DVT. It was negative for any DVT. I do feel that the leg pain is likely normal postop alena n with swelling being the same. On reevaluation, she stated she felt much better. Her skin was no longer flushed, it was now warm and dry. Heart rate is 81, normotensive, afebrile. We did discuss possi ble causes of colitis that this may be related to an infection, but it is difficult to say whether is bacterial or viral. I do feel at this time antibiotics might cause more harm than good, as there is no indication this is a bacterial infection. The patient agreed on symptomatic treatment at this time and does feel well enough to go home and does desire to go home. She was given a prescription for OD T Zofran to use to help her stay well hydrated and control her symptoms. She will not be given antibiotics at this time. She is to follow up with her primary care doctor. If she is unable to tolerate or al intake, develops high fever, worsening symptoms or has any other concerns, she should return to the Emergency Department as soon as possible. She agreed with this plan and was discharged with her hus band. IMPRESSION: Ascending colitis. Post-op left knee pain SHEILA AMAYA MD T: NTS JOB: [id number] 12/15/16 1522 <Electronically signed by Sheila Amaya MD> Date Sheila Amaya MD Cosigner Signature (If Indicated): Date CC: Ann Marie Cassidy Date Dictated: 12/13/162342 Date Transcribed: 12/13/162342 Tile Molder Hand: Signed 15-Dec-2016 12 Lead Electrocardiogram Result: Comments: See Note; NOTES: [facility] Cardiovascular Services [address] [facility] [place] [address] 12 Lead EKG 12/13/16 1603 MR#: [id number] Acct: [id number] Name: MAR MAHARAJ Toni Re p #: [id number] : 1945 71 From: Vineet Melros MD Attending Dr: Status: DEP ER Ordering Dr: Sheila Amaya MD Date: 12/13/16 Location: ED Sex: F C Admitted: Test Reason : LOWER EXTREMITY Blood P ressure : / mmHG Vent. Rate : 081 BPM Atrial Rate : 081 BPM P-R Int : 182 ms QRS Dur : 074 ms QT Int : 408 ms P-R-T Axes : 047 -41 058 degrees QTc Int : 473 ms Sinus rhythm with occasional Premat ure ventricular complexes Left axis deviation Septal infarct , age undetermined Inferior infarct , age undetermined Abnormal ECG Confirmed by VINEET MERLOS ([id number]), senior editor CHRISTIAN WASHINGTON ([id number]) on 017 1:15:30 PM Referred By: JOSE LUIS Confirmed By:VINEET MERLOS 12/15/16 1315 Date Vineet Merlos MD CC: Ann Marie Ciesa Date Dictated: 12/13/161602 Date Transcribed: 12/13/161602 Tile Molder Hand: Signed 14-Dec-2016 Venous Duplex Lower Extremity Result: Comments: See Note; NOTES: [facility] Cardiovascular Services [address] [place] [address] Venous Duplex US, Unilateral 12/13/16 1612 MR#: [id number] Acct: [id number] Name: MAR DEAN Rep #: [id number] : 1945 71 From: Rj Cleary MD Attending Dr: Status: DEP ER Ordering Dr: Sheila Amaya MD Date: 12/13/16 Location: ED Sex: F C Admitted: Reason For Study : LLE pain s/p TKR Procedure LEFT Exam performed portable in ED. GSV is normal. A preliminary report was called and/or faxed CFV is compressible, spontaneous, phasic , to Dr. Amaya. competent, and de monstrates normal augmentation. FV is compressible, spontaneous, phasic, competent and demonstrates normal augmentation. POP V is compressible, spontaneous, phasic, competent and demonstrates normal aug mentation. T/P Trunk is compressible. PTV is compressible. LT PerV is compressible. Structure with mixed echoes noted lt med pop space measuring 2.5 x 1.2 cm. Non- vascular. Interpretation Summary Ther e is no evidence of left lower extremity deep vein thrombosis. Left greater saphenous vein appears patent and compressible segmentally. 2.5cm x 1.2 cm stucture left popliteal space with no vascular flow . Possible hematoma or hemorrhage within a Calderon's cyst. Clinical correlation would be appropriate. _ Ordering Physician: Sheila Amaya Referring Physician: Adair Wu Performed By: Deana Cherry RVT 12/14/16 0603 Date Rj Cleary MD CC: Ann Marie Cassidy; Sheila Amaya MD Date Dictated: 12/13/16 1612 Date Transcribed: 12/14/16602 Tile Molder Hand: Signed 13-Dec-2016 Discharge Instruction Result: Comments: See Note; NOTES: [facility] Medical Records Department [address] [facility] [place] [address] Discharge Instruction 12/13/16 190 MR#: [id number] Acct: [id number] Name: Radha MAHARAJ JONDEION Muñoz Rep #: [id number] : 1945 71 From: Sheila Amaya MD PCP: Ann Marie Cassidy Status: DEP ER ED Disposition - Plan for ED Patient: Disposition: Home or Assisted Living Chief Complaint: Lower E xtremity Injury Instructions: ED Diet Vomiting Diarrhea Prescriptions: Ondansetron [Zofran Odt] 4 mg PO Q8H PRN PRN #15 tablet PRN Reason: Nausea Referrals: Ann Marie Cassidy [Primary Care Provider] - 1-2 Days if not improving Additional Instructions: You do NOT have a blood clot in your left leg. Your CAT scan of your abdomen showed inflammation of the right colon (colitis), which may be caused by an infect ion. Please use the nausea medication to help control your symptoms. Drink plenty of fluids. If you cannot control your symptoms, your vomiting and diarrhea get worse, you have any new or concerning sym ptoms, please come back to the ER immediately. What to do if you have Problems For any increased pain, shortness of breath, bleeding, nausea or vomiting, chest pain, or any unexpected problems, cont act your Primary Care Provider. Call [facility] ([phone]) or report to the closest Emergency Room. Call 911 if necessary. 12/13/162044 <Electronically signed by Sheila Amaya MD&amp ;#[id number]; Date Sheila Amaya MD Cosigner Signature (If Indicated): Date CC: Ann Marie Cassidy 13-Dec-2016 Chest 1 View (Portable) Result: Comments: See Note; NOTES: [facility] Imaging Services [address] [place] [address] Verdana 4d Chest 1 View (Portable) MR#: [id number] Acct: [id number] Name: MAR MAHARAJ Rep #: [id number] : 1945 F 71 From: Trent Arias MD PCP: Ann Marie Cassidy Status: REG ER Study: Chest 1 View (Portable) Date of Exam: 12/13/16 Exam# [id number] Ordering Dr: Sheila Amaya MD STUDY: X-RAY CHEST REASON FOR EXAM: Female, 71 years old. Patient states weak and sick. Not feeling well all day and having leg pain in left leg. Recent pneumonia and recent left knee surgery 3 weeks ago. T ECHNIQUE: Single frontal view of the chest. COMPARISON: None. FINDINGS: Chronic appearing increased interstitial lung markings. Spinal fixation hardware is noted. T here is an elevated right hemidiaphragm. There is no demonstrated pleural abnormality. Normal heart size. Normal mediastinum and karthik. Normal visualized pulmonary arteries. There is atherosclerotic ca lcification of the aortic arch with tortuosity. There are diffuse degenerative changes of the visualized thoracic spine. There is degenerative osteoarthritis of the bilateral shoulders. There is no dem onstrated abnormality of the visualized soft tissue structures of the upper abdomen. RAD/Chest 1 View (Portable) IMPRESSION: There are no acute f indings. Electronically Signed: Trent Arias MD at 17:07 EDT , Service support [phone], CC: Ann Marie Cassidy; Sheila Amaya MD Tile Molder Hand: Signed 13-Dec-2016 Abdomen/Pelvis W IV Cont ONLY Result: Comments: See Note; NOTES: [facility] Imaging Services [address] [place] [address] Verdana 4d Abdomen/Pelvis W IV Cont ONLY MR#: [id number] Acct: [id number] Name: LILI MAHARAJ Rep #: [id number] : 1945 F 71 From: Trent Arias MD PCP: Ann Marie Cassidy Status: REG ER Study: Abdomen/Pelvis W IV Cont ONLY Date of Exam: 12/13/16 Exam# [id number] Ordering Dr: Sheila Amaya MD STUDY: CT ABDOMEN AND PELVIS WITH CONTRAST REASON FOR EXAM: Female, 71 years old. NAUSEA,VOMITING AND DIARRHEA HX:HTN,DIABETES,UTERINE CANCER SURGERY BACK X 3,TOTAL HYSTERECTOMY RADIATION DOSAGE (If Supplied By Facility): CTDIvol = ( 16.39 ) mGy, DLP = ( 938.75 ) mGycm TECHNIQUE: Transaxial images were obtained from the dome of the diaphragm to the symphysis pubis without oral contrast. 100ML ml of Isovue 300 contrast was administered. Sagittal and coronal images were reconstructed. Individualized dose optimization techniques were used for this CT. COMPARISON: None. FINDINGS: The visualized lung bases are unremarkable. The heart is enlarged. Normal liver. The gallbladder is surgically absent. There is intrahepatic ductal dilation. There is dilation o f the common bile duct. Common bile duct stone is not seen. Findings are likely related to the cholecystectomy. Normal spleen. Normal pancreas. Normal bilateral adrenal glands. Normal right kidney. No rmal left kidney. There is a small hiatal hernia. Normal small intestine. There is wall thickening of the ascending colon. There is also questionable inflammation around the colon. This can suggest a c olitis. This can also suggest incomplete distension of the colon. The appendix is visualized and appears normal. There are calcifications of the abdominal aorta and vascular structures. This is consist ent for atherosclerotic disease. There is no abdominal aortic aneurysm. Normal inferior vena cava. Subcentimeter mesenteric lymph nodes. Normal urinary bladder. There is absence of the uterus consisten t with a prior hysterectomy. Normal abdominal wall. There are degenerative changes of the osseous structures. Total right hip arthroplasty. There is scoliosis of the lumbar spine. Spinal fixation hardw are is noted. CT/Abdomen/Pelvis W IV Cont ONLY IMPRESSION: Mild colitis of the ascending colon. Other findings as above. Electronically Signed: Trent Arias MD at 18:25 EDT , Service support [phone], CC: Ann Marie Cassidy; Sheila Amaya MD Tile Molder Hand: Signed 15-Nov-2016 History and Physical Exam Result: Comments: See Note; NOTES: [facility] Medical Records Department [address] [place] [address] History and Physical 11/09/16 1003 MR#: [id number] Acct: [id number] Name: CAROL ANNRadha MoralesOLIVIER Muñoz Rep #: [id number] : 1945 71 From: Glenn Ro PCP: Ann Marie Cassidy Status: PRE IN Location: [facility] DATE OF SERVICE: 11/22/2016 This is Glenn Ro PA-C, dictating preoperative hist ory and physical exam per Dr. Darien Avina. PRIMARY CARE PROVIDER: Ann Marie Cassidy. PROCEDURE TYPE: Left total knee arthroplasty. PROCEDURE DATE: 11/22/2016 ATTENDING PHYSICIAN: Darien Avina M.D. HISTO RY OF PRESENT ILLNESS: This is a 71-year-old female who has been having ongoing left knee pain progressively worsening. She was previously scheduled for left total knee arthroplasty, but had to be diogenes eduled secondary to hypokalemia, pneumonia, flu-like symptoms and dehydration for which she underwent a hospital admission. She has since been cleared medically by Dr. Drake and Dr. Wu. She still p ersists with left knee pain. She has been progressively worsening over the past 4-5 months, had a previous right total knee arthroplasty in August 2014, very pleased with the surgical outcome, difficu lty walking on the left leg, fullness in the back of the knee. The pain is sharp, stabbing and sore. It is worse with stairs, walking any distance, sitting for an extended period of time makes her knee very stiff, resting can help. She has difficulty with showering and housework and is no longer able to partake in leisure activities. She has stumbled, uses a cane for stability and balance. She has tri ed bracing feels unsafe doing most activities for fear that the left knee will give out. She has attempted conservative measures with rest, ice, elevation. She had a cortisone injection in August owed by aspiration and cortisone injection in September without significant long- term relief, tried compression, home exercises that she had learned in physical therapy while going through on her right kn ee chiropractic treatments and she takes Percocet as prescribed by her pain management physician, Dr. Betts. She has lost 15 pounds. She has as not done any viscosupplementation. She has not had any pr evious surgeries on the left knee. 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 After failing conservative measures and discussing and reviewing all treatment options wi th Dr. Darien Avina, the patient does wish to proceed with a left total knee arthroplasty. PAST MEDICAL HISTORY: Significant for: 1. Fibromyalgia. 2. Hypertension. 3. Cancer. 4. Diabetes mellitus. 5. H istory of phlebitis. 6. Depression. 7. Anxiety. PAST SURGICAL HISTORY: 1. Right total hip arthroplasty in 2003, Dr. Darien Avina, [facility]. 2. Hysterectomy. 3. Appendectomy. 4. Cholec ystectomy. 5. Brain surgery x2 Arnold-Chiari malformation. 6. Carpal tunnel bilaterally. 7. Cervical surgery, December 2013 at [facility]. 8. Right total knee arthroplasty on August 19, 2014, Dr. Darien Avina , [facility]. 9. Laminectomy 2000, instrumentation lumbar fusion. 10. Right total hip arthroplasty in 2013, revision assistive devices. The patient admits to full upper dentures. Denies glasses or hearing aids. SOCIAL HISTORY: The patient is retired, works part-time. Denies tobacco use, denies alcohol use, denies illicit drug use. REVIEW OF SYSTEMS: Documented in the [facility] medical hi story sheet, please refer to attached document. ALLERGIES: No known drug allergies. CURRENT MEDICATIONS: Include: 1. Ambien 10 mg 1 p.o. every day. 2. Ativan 0.5 mg 1 p.o. p.r.n. anxiety. 3. Cymbalta 30 mg 1 capsule p.o. every day. 4. Flonase allergy relief 50 mcg/act 1 spray each nostril daily. 5. Glucose 500 mg 1 p.o. every day. 6. Hydrochlorothiazide 25 mg 1 p.o. every day. 7. Lotrel 10-20 mg 1 p .o. every day. 8. Magnesium oxide 400 mg 1 p.o. every day. 9. Neurontin 600 mg 1 p.o. t.i.d. 10. Oxygen bedtime p.r.n. 11. Percocet 5/325 one p.o. q. 6 hours, p.r.n. pain. 12. Protonix 40 mg 1 p.o. b.i. d. 13. Vitamin C 1000 mg 1 p.o. every day. 14. Vitamin D3 2000 units 1 p.o. every day. 15. Vitamin E 1000 units 1 p.o. every day. PHYSICAL EXAMINATION: VITAL SIGNS: Height 63 inches, weight 159 pounds, BMI 28.2. Blood pressure 130/90, pulse 80, respirations 16, temperature 97.9. GENERAL: The patient is alert and oriented x3. No acute distress at rest. Breathing easily without respiratory distress. HE ENT: Head normocephalic, atraumatic. Eyes: PERRLA, EOMI, sclerae are anicteric, conjunctivae without injection. Ears: Auditory acuity grossly intact bilaterally. Nose: Bilateral patent nares without ten derness or drainage. Throat: Pharynx clear without erythema or exudate. Tongue and uvula midline. Buccal mucosa pink and moist. NECK: Supple, without adenopathy, JVD, carotid bruit, masses or tenderness . CHEST: Symmetrical, nontender to palpation. AP diameter within normal limits. HEART: Regular rate and rhythm without murmurs, rubs or gallops appreciated at this time. LUNGS: Clear to auscultation vicky aterally without wheezes, rales or rhonchi. ABDOMEN: Soft. Nondistended. Normoactive bowel sounds x4 without tenderness. NEUROLOGIC: Cranial nerves II through XII grossly intact without any focal sensor imotor deficits noted. EXTREMITIES/MUSCULOSKELETAL: Trace effusion of the left knee. Palpable Calderon cyst in the popliteal space, medial joint line tenderness, varus deformity correctable to neutral with valgus stress. Range of motion is 0-115 degrees, walks with an antalgic limp, pain from the left knee. DIAGNOSTIC STUDIES: X-rays of left knee dated October 17, 2016, [facility], weightbearing, AP, tunnel, sunrise, lateral views with progressive avascular necrosis on the medial femoral condyle with complete collapse of the medial joint space, represents a significant change in comparison to films from August 2016. IMPRESSION: 1. Progressive avascular necrosis medial femoral condyle, severe osteoarthritis of the left knee. 2. Status post right total knee arthropla sty. 3. Fibromyalgia. 4. Hypertension. 5. Cancer. 6. Diabetes mellitus. 7. History of phlebitis. 8. Depression. 9. Anxiety. PLAN: Dr. Darien Avina did discuss and review with the patient all treatment options including surgical versus nonsurgical. At this time, the patient does wish to proceed with left total knee arthroplasty. Potential risks, benefits and complications of this procedure were review ed in detail including but not limited to , infection, nerve and blood vessel damage, persistent pain, numbness, tingling, paresthesias, blood clot, pulmonary embolism and requirement for possible further surgery. The patient expressed full understanding, has no further questions for the doctor and does agree to proceed with the above-stated procedure and signed the appropriate surgery consent fo . The patient's stay will be greater than 2 midnights and plan is for discharge to home upon leaving the hospital. YADIRA Narvaez T: RUFUS JOB: [id number] 11/15/16 0839 <Electronically signed by Glenn Ro > Date: Time: Glenn Ro CC: Ann Marie Cassidy; Glenn Ro Date Dictated: 11/09/16 1003 Date Transcribed: 7 1003 Tile Molder Hand: Signed ____ I have re-examined the patient. There are no clinical changes since date of exam. ____ See Progress Notes for Changes ____ Dictated on Admission Date: ___ Time: Signature: -Oct-2016 History and Physical Exam Result: Comments: See Note; NOTES: [facility] Medical Records Department [address] [place] [address] History and Physical 10/19/16 1537 MR#: [id number] Acct: [id number] Name: Radha MAHARAJ Rep #: [id number] : 1945 71 From: Glenn Ro PCP: Ann Marie Cassidy Status: PRE IN Location: [facility] DATE OF SERVICE: 10/25/2016 This is YADIRA Narvaez, dictating a preoperative hist ory and physical exam per Dr. Darien Avina. PRIMARY CARE PROVIDER: Ann Marie Cassidy. PROCEDURE TYPE: Left total knee arthroplasty. PROCEDURE DATE: 10/25/2016 ATTENDING PHYSICIAN: Darien Avina M.D. HISTO RY OF PRESENT ILLNESS: This is a 71-year-old female who has been having progressive worsening of her left knee pain over the past 3 months. She has had a previous right total knee arthroplasty in [facility] er 2013, is very pleased with the surgical outcome. She is having difficulty walking. She feels fullness in the back of her knee. The pain is sharp, stabbing and sore. It is worse with stairs, walking a ny distance, sitting for an extended period of time makes her very stiff, resting can help. She has difficulty with showering, housework and is no longer able to partake in leisure activities. She has s tumbled. She uses a cane for stability and balance. She has tried bracing. She feels unsafe doing most activities for fear that the left knee will give out. She has attempted conservative measures of re st, ice, elevation. She has had a cortisone injection in August followed by aspiration and cortisone injection of the left knee in September without any significant long-term relief. She has tried compr ession, home exercises that she learned in physical therapy with her right knee, chiropractic treatments and she takes Percocet as prescribed by her pain management physician, Dr. Betts. She takes this every day. She has lost 15 pounds. She has not done any viscosupplementation, has not had any previous surgeries on the left knee. Her X-rays are with progressive avascular necrosis of the medial femor al condyle. After failing conservative measures, discussing and reviewing all treatment options with Dr. Darien Avina, the patient does wish to proceed with a left total knee arthroplasty. PAST MEDICAL HISTORY: Significant for 1. Fibromyalgia. 2. Hypertension. 3. Cancer. 4. Diabetes mellitus. 5. History of phlebitis. 6. Depression. 7. Anxiety. PAST SURGICAL HISTORY: 1. Right total hip arthroplasty i n 2003, Dr. Darien Avina, [facility]. 2. Hysterectomy. 3. Appendectomy. 4. Cholecystectomy. 5. Brain surgery x2. Arnold-Chiari malformation. 6. Carpal tunnel bilaterally. 7. Cervical surgery in ril 2013 in [place]. 8. Right total knee arthroplasty on August 19, 2014, Dr. Darien Avina, [facility]. 9. Laminectomy 2001 instrumentation, lumbar fusion. 10. Right total hip arthroplasty in 2013 , revision. ASSISTIVE DEVICES: The patient admits to full upper dentures. Denies glasses or hearing aids. SOCIAL HISTORY: The patient is retired, but works part-time. She denies tobacco use, denies al cohol use, denies illicit drug use. REVIEW OF SYSTEMS: Documented in the [facility] medical history sheet. Please refer to attached document. ALLERGIES: No known drug allergies. CURRENT MEDICATIONS: 1. Am evelina 10 mg 1 p.o. every day. 2. Ativan 0.5 mg 1 p.o. p.r.n. anxiety. 3. Cymbalta 30 mg 1 cap p.o. daily. 4. Flonase allergy release 50 mcg per____ 1 spray each nostril daily. 5. Glucophage ____ mg 1 p.o . every day. 6. Hydrochlorothiazide 25 mg 1 p.o. every day. 7. Lotrel 10-20 mg 1 p.o. every day. 8. Magnesium oxide 40 mg 1 p.o. every day. 9. Neurontin 600 mg 1 p.o. t.i.d. 10. Oxygen bedtime p.r.n. 11 . Percocet 5/325 one p.o. q.6h. p.r.n. pain. 12. Protonix 40 mg 1 p.o. b.i.d. 13. Vitamin C 1000 mg 1 p.o. every day. 14. Vitamin D3 5000 units 1 cap p.o. every day. 15. Vitamin E. 1000 units 1 p.o. elver ry day. PHYSICAL EXAMINATION: VITAL SIGNS: Height 62.5 inches, weight 163 pounds, BMI 29.3, blood pressure 120/72, pulse 88, respirations 16, temperature 99.1. GENERAL: The patient is alert and oriente d x3. No acute distress at rest. Breathing easily without respiratory distress. HEENT: Head normocephalic, atraumatic. Eyes: PERRLA, EOMI, sclerae are anicteric, conjunctivae without injection. Ears: Au ditory acuity grossly intact bilaterally. Nose: Bilateral patent nares without tenderness or drainage. Throat: Pharynx clear without erythema or exudate. Tongue and uvula midline. Buccal mucosa pink and moist. NECK: Supple, without adenopathy, JVD, carotid bruit, masses or tenderness. CHEST: Symmetrical, nontender to palpation. AP diameter within normal limits. HEART: Regular rate and rhythm without m urmurs, rubs or gallops appreciated at this time. LUNGS: Clear to auscultation bilaterally without wheezes, rales or rhonchi. ABDOMEN: Soft, nondistended. Normoactive bowel sounds x4 without tenderness. NEUROLOGIC: Cranial nerves II through XII grossly intact without any focal sensorimotor deficits noted. EXTREMITIES/MUSCULOSKELETAL: Trace of effusion, palpable Calderon cyst in the popliteal space, media l joint line tenderness, varus deformity, correctable to neutral with valgus stress. Range of motion is 0-115 degrees, walks with antalgic limp, pain from the left knee. DIAGNOSTIC STUDIES: X-rays of l eft knee dated 10/17/2016, [facility], weightbearing, AP, tunnel, sunrise, lateral views are with progressive avascular necrosis on the medial femoral condyle with complet e collapse of the medial joint space represents a significant change in comparison to x-rays from August 2016. IMPRESSION: 1. Progressive avascular necrosis medial femoral condyle, severe osteoarthri tis of the left knee. 2. Status post right total knee arthroplasty. 3. Fibromyalgia. 4. Hypertension. 5. Cancer. 6. Diabetes mellitus. 7. History of phlebitis. 8. Depression. 9. Anxiety. PLAN: Dr. Carlos Eduardo Avina did discuss and review with the patient all treatment options including surgical versus nonsurgical. At this time, the patient does wish to proceed with a left total knee arthroplasty. Daniel raya risks, benefits and complications of this procedure were reviewed in detail including but not limited to , infection, nerve and blood vessel damage, persistent pain, numbness, tingling, paresthes ias, blood clot, pulmonary embolism and the requirement for possible further surgery. The patient expressed full understanding, has no further questions for the doctor, does agree to proceed with the ab ove-stated procedure and signed the appropriate surgery consent form. Her stay will be greater than 2 midnights plan is for discharge to 4th floor rehabilitation. YADIRA Narvaez T: RUFUS JOB: [id number] Date: Time: Glenn Ro CC: Ann Marie Ro Date Dictated: 10/19/161536 Date Transcribed: 10/19/161536 Tile Molder Hand: Toni rodriguezed ____ I have re-examined the patient. There are no clinical changes since date of exam. ____ See Progress Notes for Changes ____ Dictated on Admission Date: Time: Sig nature: 23-Oct-2016 Chest PA and Lateral Result: Comments: See Note; NOTES: [facility] Imaging Services [address] [place] [address] Verdana 4d Chest PA and Lateral MR#: [id number] Acct: [id number] Name: MAR MAHARAJ Rep #: [id number] : 1945 F 71 From: Heraclio Meredith MD PCP: Ann Marie Cassidy Status: PRE ER Study: Chest PA and Lateral Date of Exam: 10/23/16 Exam# [id number] Ordering Dr: Edin Horton MD STUDY: X-RAY CHEST REASON FOR EXAM: Female, 71 years old. Tachypnea with weakness. TECHNIQUE: Frontal and lateral views of the chest. COMPARISON: September 18, 2016 FINDINGS: The lungs are hyperexpanded and unchanged. There is a patchy opacity at the left base representing atelectasis or an early/developing pneumonia. Follow-up films may clarify this. There is a small left p leural effusion. There is stable cardiomegaly. Normal mediastinum and karthik. Normal visualized pulmonary arteries. There is atherosclerotic calcification of the aortic arch with tortuosity unchanged. N ormal visualized thoracic spine. Normal visualized ribs, clavicles, and shoulders. There is no demonstrated abnormality of the visualized soft tissue structures of the upper abdomen. RAD/Chest PA and Lateral IMPRESSION: Stable cardiomegaly with hyperexpansion. New patchy opacity at the left base with small pleural effusion representing atelect asis or early/developing pneumonia. See discussion above. Electronically Signed: Heraclio Meredith MD at 14:44 EST , Service support [phone], CC: Chay Cassidy; Edin Horton MD Tile Molder Hand: Signed 23-Sep-2016 Echocardiogram Complete Result: Comments: See Note; NOTES: [facility] Cardiovascular Services [address] [place] [address] Echo Complete 09/23/16 1311 MR#: [id number] Acct: [id number] Name: MAR MAHARAJ Rep #: [id number] : 1945 71 From: Sergio Lawler MD Attending Dr: Nuris ARAGON,Sergio Status: REG CLI Ordering Dr: Sergio Lawler MD Date: 09/23/16 Location: [facility] Sex: F C Admitted: Reason For Study: HTN Procedure This was a 2D Doppler, Color Flow transthoracic echocardiogram. Exam performed in department. Left Ventricle Normal LV size. Left ventricular systolic function is normal. The estimated e jection fraction is 60 %. No regional wall motion abnormalities noted. Right Ventricle Normal RV size. Normal systolic function. Atria Normal left atrium. Normal right atrium. Mitral Valve Normal abe ral valve. Tricuspid Valve Normal tricuspid valve. Mild (1+) tricuspid valve insufficiency. Pulmonary artery systolic pressure is 30 mmHg. Aortic Valve The aortic valve is not well visualized. Mild (1+ ) eccentric aortic valve insufficiency. Pulmonic Valve Normal pulmonic valve. Great Vessels Normal aortic root. The pulmonary artery is normal size. Normal inferior vena cava. Pericardium/Pleural No pericardial effusion. MMode/2D Measurements & Calculations LVIDd: 3.8 cm IVSd: 1.1 cm Ao root diam: 3.7 cm LVIDs: 2.6 cm LVPWd: 1.2 cm LA dimension: 3.5 cm RVDd: 3.2 cm FS: 32.6 % LAV(MOD-bp): 21.2 ml LA A4 area: 8.9 cm2 RA A4 area: 11.7 cm2 LAV(MOD-bp) Indexed: 11.6 ml/m2 LAV(MOD-sp2): 21.6 ml LAV(MOD-sp4): 16. 5 ml Doppler Measurements & Calculations MV E max alok: 53.7 cm/sec Lat Peak E' Alok: 5.1 cm/sec Med Peak E' Alok: 4.6 cm/sec MV A max alok: 74.5 cm/sec E/E' lat: 10.5 E/E' med: 11.6 MV E/A: 0.72 _ Ao V2 max: 162.1 cm/sec AI max alok: 392.5 cm/sec LV V1 max: 98.9 cm/sec Ao max P.5 mmHg AI max P.6 mmHg LV V1 ma x P.9 mmHg Ao V2 mean: 101.3 cm/sec AI dec slope: 206.3 cm/sec2 Ao mean P.6 mmHg AI P1/2t: 557.2 msec Ao V2 VTI: 24.3 cm PA V2 max: 94.9 cm/sec TR max alok: 255.4 cm/sec TR max P.1 mmHg Interpretation Summary Normal LV size. The estimated ejection fraction is 60 %. Left ventricular systolic function is cat l. Mild (1+) tricuspid valve insufficiency. Pulmonary artery systolic pressure is 30 mmHg. Mild (1+) eccentric aortic valve insufficiency. Ordering Physician: Sergio Lawler Referring Physician: Adair Wu Performed By: Elizabeth Koehler, JULIETA, RVT Electronically signed by: Sergio Lawler MD on 03:21 PM 09/23/16 1521 Date Sergio Lawler MD CC: Ann Marie Cassidy; Sergio Lawler MD Date Dictated: 09/23/16 1311 Date Transcribed: 09/23/161520 Tile Molder Hand: Signed 21-Sep-2016 12 Lead Electrocardiogram Result: Comments: See Note; NOTES: [facility] Cardiovascular Services [address] [facility] [place] [address] 12 Lead EKG 09/18/16 1204 MR#: [id number] Acct: [id number] Name: JOHN MAHARAJNellie Burns p #: [id number] : 1945 71 From: Corey Harrison MD Attending Dr: Status: DEP ER Ordering Dr: Edin Rodriguez MD Date: 09/18/16 Location: ED Sex: F C Admitted: Test Reason : SOB Blood Pressure : */ mmHG Vent. Rate : 077 BPM Atrial Rate : 077 BPM P-R Int : 158 ms QRS Dur : 078 ms QT Int : 396 ms P-R-T Axes : 038 009 051 degrees QTc Int : 448 ms Normal sinus rhythm Inferior infarct , age unde termined Anteroseptal infarct , age undetermined Abnormal ECG Confirmed by OMAR ARAGON, COREY ([id number]), senior editor CHRISTIAN WASHINGTON ([id number]) on 09/21/2016 1:40:15 PM Referred By: FLORIN Confirmed By:COREY HARRISON MD 09/21/16 1340 Date Corey Harrison MD CC: Ann Marie Cassidy Date Dictated: 09/18/16 1204 Date Transcribed: 09/18/16 120 Tile Molder Hand: Signed 20-Sep-2016 Emergency Department Summary Result: Comments: See Note; NOTES: [facility] Medical Records Department [address] [place] [address] Emergency Department Summary MR#: [id number] Acct: [id number] Name: JOHN MAHARAJ Rep #: [id number] : 1945 71 From: Edin Rodriguez MD PCP: Ann Marie Cassidy Status: DEP ER DATE OF SERVICE: 09/18/2016 METHOD OF ARRIVAL: Private car. CHIEF COMPLAINT: Shortness of breath with cou gh. PRIMARY CARE PHYSICIAN: Ann Marie Cassidy. ESCOTO HISTORY: A 71-year-old female with history of hypertension, diabetic, Chiari malformation with surgery, and had a prior PE, is on Eliquis. The patient comes in with shortness of breath due to cough, symptoms going on for several days. She describes it intermittently worse with the coughing. She describes productive green sputum, rhinorrhea, and sore throat . She states she has had some intermittent chest discomfort that has been dull only present with her cough. She does describe sick contact. She has reported subjective fever, however. REVIEW OF SYSTEMS : Otherwise unremarkable. She was seen by Ann Marie Cassidy on and said that she had a negative influenza swab. PHYSICAL EXAMINATION: VITAL SIGNS: Stable. She is not febrile, not tachypneic. Pulse ox is 93% on room air. HEENT: She does have some postnasal drip. She is congested. There is no pharyngeal erythema, exudate, or masses. NECK: Supple. HEART: Regular. LUNGS: Sounds, she has a few rhonchi o n the right base. I do not appreciate any wheezes or rales. She is not in respiratory distress. ABDOMEN: Soft and nontender. NEUROLOGIC: She is awake, alert, no focal findings. TESTS: Chest x-ray, 2 vi ews, shows no evidence of any pneumonia or infiltrate. EKG is sinus at 77 with inferior septal Q-waves, appears unchanged from April 2016. CBC: Her white count is normal with 89% neutrophils. Chemistry panel remarkable for glucose of 137. Troponin is negative. Lactate is negative. EMERGENCY DEPARTMENT COURSE: The patient was started on IV fluids, monitor, given aerosol treatment. On repeat evaluatio n, she feels improved. Her oxygen level was 95% on room air. Her respiratory rate is 14 and heart rate is 91. She wishes to go home. At this point, I will place her on antibiotics given her abnormal temitope ath sounds on the right base, although her x-ray was negative. She will be encouraged to follow up with Ann Marie Casisdy, return with any problems. Return instructions were given. CLINICAL IMPRESSION: Bronch itis, possible early pneumonia. DISPOSITION: Home. Edin Rodriguez MD C C: Ann Marie Cassidy T: NTS JOB: [id number] 09/20/16 1522 <Electronically signed by Edin Rodriguez MD> Date __ Edin Rodriguez MD Cosigner Signature (If Indicated): Date CC: Ann Marie Cassidy Date Dictated: 09/18/16 1339 Date Trans cribed: 09/18/16 133 Tile Molder Hand: Signed 18-Sep-2016 Discharge Instruction Result: Comments: See Note; NOTES: [facility] Medical Records Department [facility] [place] [address] Discharge Instruction 09/18/16 1334 MR#: [id number] Acct: [id number] Name: Radha MAHARAJ Toni Rep #: [id number] : 1945 71 From: Edin Rodriguez MD PCP: Ann Marie Cassidy Status: REG ER ED Disposition - Plan for ED Patient: Disposition: Home or Assisted Living Chief Complaint: Shortnes s of Breath Instructions: ED Upper Resp Infec Abx Tx Prescriptions: Levofloxacin [Levaquin] 750 mg PO DAILY #4 tablet Referrals: Ann Marie Cassidy [Primary Care Provider] - 2 Days Additional Instructions: foll ow up with Ann Marie. albuterol 2-4 puffs every 4 hours as needed. return with problems/ worsening. What to do if you have Problems For any increased pain, shortness of breath, bleeding, nausea or vomiti ng, chest pain, or any unexpected problems, contact your Primary Care Provider. Call [facility] ([phone]) or report to the closest Emergency Room. Call 911 if necessary. 09/18/16 1336 & #60;Electronically signed by Edin Rodriguez MD> Date Edin Rodriguez MD Cosigner Signature (If Indicated): Date CC: Ann Marie Cassidy 18-Sep-2016 Chest PA and Lateral Result: Comments: See Note; NOTES: [facility] Imaging Services [address] [place] [address] Verdana 4d Chest PA and Lateral MR#: [id number] Acct: [id number] Name: MAR MAHARAJ Rep #: [id number] : 1945 F 71 From: Rolly Aviles MD PCP: Ann Marie Cassidy Status: REG ER Study: Chest PA and Lateral Date of Exam: 09/18/16 Exam# [id number] Ordering Dr: Edin Rodriguez MD STUDY: X-RAY CHEST REASON FOR EXAM: Female, 71 years old. Cough and congestion. TECHNIQUE: PA and lateral views of the chest. COMPARISON: 04/25/2016. FINDINGS: There is mild el evation of the right hemidiaphragm. The lungs are clear and expanded. There is no demonstrated pleural abnormality. There is borderline cardiomegaly. Normal mediastinum and karthik. Normal visualized pul monary arteries. There is atherosclerotic tortuosity of the aortic arch and descending thoracic aorta. There are diffuse degenerative changes of the visualized thoracic spine. The patient is status pos t fusion lower cervical spine with anterior plate and screws. Normal visualized ribs, clavicles, and shoulders. There is no demonstrated abnormality of the visualized soft tissue structures of the uppe r abdomen. RAD/Chest PA and Lateral IMPRESSION: No active pulmonary disease. Electronically Signed: Rolly Aviles MD at 13:29 EST Te l , Service support [phone], CC: Ann Marie Cassidy; Edin Rodriguez MD Tile Molder Hand: Signed 17-Aug-2016 Knee 4 or More Views Result: Comments: See Note; NOTES: [facility] Imaging Services [address] [place] [address] Jeffrydabertram 4d Knee 4 or More Views MR#: [id number] Acct: [id number] Name: MAR MAHARAJ Rep #: [id number] : 1945 F 71 From: Florian Valenzuela MD PCP: Davian Mccray Status: REG CLI Study: Knee 4 or More Views Date of Exam: 08/17/16 Exam# [id number] Ordering Dr: Gemma Nina MD STUD Y: X-RAY - LEFT KNEE REASON FOR EXAM: Female, 71 years old. Pain. No known injury. TECHNIQUE: 4 view(s) of the knee. COMPARISON: None. FINDINGS: Normal visualized distal femur. Normal visualized proximal tibia and fibula. Normal proximal tibiofibular articulation. There is severe degenerative arthrosis of the medial femorotibial compartment with severe joint sp amarilys narrowing. Normal lateral femorotibial compartment. Normal patellofemoral articulation. The soft tissue structures are unremarkable. RAD/Kne e 4 or More Views IMPRESSION: Degenerative arthrosis. Electronically Signed: Florian Valenzuela MD at 15:48 EST Tel [phone], Service support [phone], CC: Bertram Mccray; Gemma Nina MD Tile Molder Hand: Signed 17-Aug-2016 Tibia AND Fibula 2 Views Result: Comments: See Note; NOTES: [facility] Imaging Services [address] [place] [address] Verdana 4d Tibia AND Fibula 2 Views MR#: [id number] Acct: [id number] Name: MAR MAHARAJ Rep #: [id number] : 1945 F 71 From: Florian Valenzuela MD PCP: Davian Mccray Status: REG CLI Study: Tibia AND Fibula 2 Views Date of Exam: 08/17/16 Exam# [id number] Ordering Dr: Gemma Nina STUDY: X-RAY - LEFT TIBIA AND FIBULA REASON FOR EXAM: Female, 71 years old. Pain. No known injury. TECHNIQUE: AP and lateral view(s) of the tibia and fibula were obtained. COMPARISON: None. FINDINGS: Normal visualized tibia. Normal visualized fibula. Soft tissue swelling. RAD/Tibia AND Fibula 2 Views IMPRESSION: Soft tissue swelling. Electronically Signed: Florian Valenzuela MD at 15:42 EST Tel [phone], Service support [phone], CC: Davian Nina MD Tile Molder Hand: Signed 01-Jul-2016 Venous Duplex Lower Extremity Result: Comments: See Note; NOTES: [facility] Cardiovascular Services [address] [place] [address] Venous Duplex US, Unilateral 07/01/16 0850 MR#: [id number] Acct: [id number] Name: MAR MAHARAJ Rep #: [id number] : 1945 70 From: David Hawthorne MD Attending Dr: Luly Noriega SOCIAL MEDIA DEVELOPER Status: REG CLI Ordering Dr: Luly Noriega SOCIAL MEDIA DEVELOPER-C Date: 07/01/16 Location: [facility] Sex: F C Adm itted: Reason For Study: LLE edema/swelling RIGHT LEFT CFV is compressible, spontaneous, phasic, CFV is compressible, spontaneous, phasic , competent and demonstrates normal competent, and demons trates normal augmentation. augmentation. Procedure GSV is normal. Exam performed in department. FV is compressible, spontaneous, phasic, The exam was diagnostic. competent and demonstrates normal A pre liminary report was called and/or faxed augmentation. to Luly Noriega SOCIAL MEDIA DEVELOPER @ 9:20 am @ POP V is compressible, spontaneous, phasic, . competent and demonstrates normal augmentation. T/P Zachary nk is compressible. PTV is compressible. LT PerV is compressible. NON-vascular structure noted in the medial pop fossa area measuring 3.8 cm x 1.7 cm in transverse. Interpretation Summary Deep veins of the left lower extremity are patent and compressible segmentally. There is no evidence of left lower extremity deep vein thrombosis. Valvular competence appears intact within the proximal deep venous s ystem on the left . The left greater saphenous vein appears patent and compressible segmentally. A non-vascular, anechoic structure is noted in the left medial popliteal space, measuring 3.8 cm x 1.7 cm . This probably represents a popliteal cyst. Clinical correlation is advised. Ordering Physician: Luly Noriega Referring Physician: Ann Marie Cassidy Performed By: Patricia Pickett, JULIETA, RVT 07/01/16 1937 Date David Hawthorne MD CC: Luly Noriega; Davian Mccray Date Dictated: 07/01/16 0850 Date Transcribed: 07/01/161936 Tile Molder Hand: Signed 07-Jun-2016 6 Minute Walk Test Result: Comments: See Note; NOTES: [facility] Pulmonary Services/Neurology [address] [place] [address] MR#: [id number] Acct: [id number] Name: MAR MAHARAJ Rep #: [id number] : 1945 70 From: Adair Wu MD Referring Dr: Luly Noriega NP Date: Ordering Dr: Sex: F C Location: PSN PSN 6 Minute Walk Test - 6 Minute Walk Test 6 Minute Walk Test: 6 Minute Walk Test PSN:6-Minute Walk Test Start: 06/07/16 11:18 Freq: Status: Active Document 06/07/16 11:18 REK (Rec: 06/07/16 11:21 REK [id number]) 6 Minute Walk Test Date Performed 06/07/16 Time Performed 11:00 Height 1. 63 m Weight: 73.482 kg Weight in Pounds 162.[address]: Luly Noriega Assistive device used: None Pre-test Oxygen Delivery Method Room Air Pulse Ox 97 Pulse Rate (beats/min) 97 Dyspnea Margarito Sc lexus (0-10) 2 Exertion Margarito Scale (6-20) 8 1st minute Oxygen Delivery Method Room Air Pulse Ox 91 Pulse Rate (beats/min) 93 2nd minute Oxygen Delivery Method Room Air Pulse Ox 90 Pulse Rate (beats/min) 1 03 3rd minute Oxygen Delivery Method Room Air Pulse Ox 92 Pulse Rate (beats/min) 113 4th minute Oxygen Delivery Method Room Air Pulse Ox 90 Pulse Rate (beats/min) 108 5th minute Oxygen Delivery Method R oom Air Pulse Ox 89 Pulse Rate (beats/min) 110 6th minute Oxygen Delivery Method Room Air Pulse Ox 91 Pulse Rate (beats/min) 99 Post-test Oxygen Delivery Method Room Air Pulse Ox 91 Pulse Rate (beats/mi n) 117 Dyspnea Margarito Scale (0-10) 2 Exertion Margarito Scale (6-20) 9 Full Laps Walked 15 Partial Lap, Number of Tiles Walked 47 Total Distance Walked (ft) 932 - Interpretation Interpretation: The patient was able to and weight 932. Over the course of 6 minutes on room air with no assistive devices or breaks. The patient did experience significant desaturation from 97% at baseline to his low as 89% with ambulation. This was associated with reflux tachycardia. These findings are consistent with an pulmonary limitation to exercise tolerance. - Recommendations Recommendations: No supplemental oxygen is i ndicated at this time. However, patient will need to be followed closely given level of desaturation with ambulation. 06/07/161541 <Electronically signed by Adair Wu MD> Date ____ Adair Wu MD CC: Date Dictated: 06/07/161540 Date Transcribed: 06/07/161540 Tile Molder Hand: Adair Wu Signed 25-Apr-2016 Chest PA and Lateral Result: Comments: See Note; NOTES: [facility] Imaging Services [address] [place] [address] Verkirk 4d Chest PA and Lateral MR#: [id number] Acct: [id number] Name: MAR MAHARAJ Re p #: [id number] : 1945 F 70 From: Stephen Walton DO PCP: Davian Mccray Status: REG ER Study: Chest PA and Lateral Date of Exam: 04/25/16 Exam# [id number] Ordering Dr: Cristhian Mandujano MD STUDY: X-R AY CHEST REASON FOR EXAM: Female, 70 years old. Fever. Flank pain. Shortness of breath. TECHNIQUE: PA and lateral views of the chest. COMPARISON: None. FINDINGS: Telemetry wires overlie the chest. The lungs are well expanded. There is again seen minimal linear atelectasis versus scarring in the left hilar region. There is no acute infiltrate or mass. There is n o demonstrated pleural abnormality. Normal size heart. Normal mediastinum and karthik. Normal visualized pulmonary arteries. Normal visualized aortic arch and descending thoracic aorta. There are diffuse degenerative changes of the visualized thoracic spine. Again seen is anterior fusion of the lower cervical spine. Normal visualized ribs, clavicles, and shoulders. There is no demonstrated abnormality of the visualized soft tissue structures of the upper abdomen. RAD/Chest PA and Lateral IMPRESSION: No acute cardiopulmonary disease or interva l change. Electronically Signed: Stephen Walton DO at 20:12 EDT Tel [phone], Service support [phone], CC: CRISTHIAN MANDUJANO MD; Davian Mccray Tile Molder Hand: Signed 25-Apr-2016 Abdomen/Pelvis without Cont Result: Comments: See Note; NOTES: [facility] Imaging Services [address] [place] [address] Verdana 4d Abdomen/Pelvis without Cont MR#: [id number] Acct: [id number] Name: GABE MAHARAJ S Rep #: [id number] : 1945 F 70 From: Stephen Walton DO PCP: Davian Mccray Status: REG ER Study: Abdomen/Pelvis without Cont Date of Exam: 04/25/16 Exam# [id number] Ordering Dr: Cristhian Mandujano MD STUDY: CT ABDOMEN AND PELVIS WITHOUT CONTRAST REASON FOR EXAM: Female, 70 years old. Bilateral flank pain. History of uterine cancer. RADIATION DOSAGE (If Supplied By Facility): CTDIvol = ( 11.44 ) mGy, DLP = ( 531.03 ) mGycm TECHNIQUE: Transaxial images were obtained from the dome of the diaphragm to the symphysis pubis without oral contrast, and without intravenous contrast. Sagittal and donal nal images were reconstructed. Individualized dose optimization techniques were used for this CT. COMPARISON: CT of the abdomen and pelvis, August 01, 2011. FIND INGS: In seen is minimal linear scarring at the left lung base. Lungs are otherwise clear. The heart is borderline enlarged. Normal liver. There is non- visualization of the gallbladder, which may be se condary to either contraction or a prior cholecystectomy. Normal spleen. Normal pancreas. Normal bilateral adrenal glands. Normal right kidney. Normal left kidney. Normal visualized stomach. Normal s mall intestine. Normal colon. There is non-visualization of the appendix. There is diffuse atherosclerotic calcification of the abdominal aorta, without a demonstrated aneurysm. Normal inferior vena ca va. Normal retroperitoneum. The urinary bladder appears collapsed. The vaginal cuff is unremarkable. There are phleboliths in the pelvis there is no free air or free fluid. Normal abdominal wall. Ther e are surgical changes of the lumbar spine which are unchanged from prior study. Scatter artifact limits evaluation of the osseous structures. Is also again noted a right artificial hip. Again scatter a rtifact limits evaluation. 0030 CT/Abdomen/Pelvis without Cont IMPRESSION: No acute intra-abdominal process or major interval change when compared to the prior study. Electronically Signed: Stephen Walton DO at 19:00 EDT Tel [phone], Service support [phone], CC: CRISTHIAN MANDUJANO MD; Davian Mccray Tile Molder Hand: Signed 12-Mar-2016 Emergency Department Summary Result: Comments: See Note; NOTES: [facility] Medical Records Department [address] [place] [address] Emergency Department Summary MR#: [id number] Acct: [id number] Name: MAR MAHARAJ Rep #: [id number] : 1945 70 From: Darien Warren MD PCP: Davian Mccray Status: DEP ER DATE OF SERVICE: 03/10/2016 CHIEF COMPLAINT: Left hip pain. HISTORY OF PRESENT ILLNES S: The patient has been having some left hip pain. She said few days ago she bumped it and has had persistent discomfort since she was helping her son move. She saw Dr. Betts today, had local inject ion. She said it was not working and she was worried it might be broken and wanted an x-ray. She has Percocet at home. She has had diabetes, hypertension. She had what I believe was the right hip repa ir, but nothing on the left. She knows she has arthritis. PHYSICAL EXAMINATION: GENERAL: On exam, stable female that drove herself in. MUSCULOSKELETAL: Her left hip has pain on palpation. It is mod erate without ecchymosis or swelling or signs of infection. Distal motor, sensory, vascular intact. No shortening, no rotation. Moderate pain with movement. No other back pain or discoloration. NEURO LOGIC: Alert and oriented x3. TREATMENT: The patient's left hip with pelvis films, 4 total views, showed some hip space narrowing, but no acute process. The patient was comfortable with plan to send her home. Follow up with Dr. Betts. In the next few days if still not better she might need some physical therapy. She is agreeable and stable. The patient did not want any further medications here and knows precautions to watch for. DIAGNOSIS: Acute left hip contusion. Darien Warren MD T: NTS JOB: [id number] 03/12/16 0306 <Electronically signed by Darien Warren MD> Date Darien Warren MD Cosigner Signature (If Indicated): Date CC: Davian Mccray Date Dictated: 2326 Date Transcribed: 03/10/162326 Tile Molder Hand: Signed 10-Mar-2016 Discharge Instruction Result: Comments: See Note; NOTES: [facility] Medical Records Department [address] [place] [address] Discharge Instruction 03/10/162006 MR#: [id number] Acct: [id number] Name: MAR MAHARAJ Rep #: [id number] : 1945 70 From: Darien Warren MD PCP: Davian Mccray Status: REG ER ED Disposition - Plan for ED Patient: Chief Complaint: Lower Extremity Injury Instructions: ED Hip Contusion Referrals: Alam,Davian [Primary Care Provider] - 3-5 Days if not improving What to do if you have Problems For any increased pain, shortness of breath, bleeding, n ausea or vomiting, chest pain, or any unexpected problems, contact your doctor. Call [facility] ([phone]) or report to the closest Emergency Room. Call 911 if necessary. 03/10/162007 <Electronically signed by Darien Warren MD> Date Darien Warren MD Cosigner Signature (If Indicated): Date CC: Davian Mccray 10-Mar-2016 Hip 2-3 Views with Pelvis Result: Comments: See Note; NOTES: [facility] Imaging Services [address] [place] [address] Verdana 4d Hip 2-3 Views with Pelvis MR#: [id number] Acct: [id number] Name: MAR DEAN Rep #: [id number] : 1945 F 70 From: Robles Mejia PCP: Davian Mccray Status: REG ER Study: Hip 2-3 Views with Pelvis Date of Exam: 03/10/16 Exam# [id number] Ordering Dr: Carlos Eduardo Warren MD STUDY: X-RAY - PELVIS AND LEFT HIP REASON FOR EXAM: Female, 70 years old. Pain TECHNIQUE: Radiological exam, hip, unilateral, with pelvis when performed; 2 or 3 views. COMPARISON: 6. FINDINGS: There is a non-specific bowel gas pattern. Normal visualized soft tissue structures. Normal bilateral iliac wings, sacroiliac joints and visualize d sacrum. Normal bilateral superior and inferior pubic rami. Normal pubic symphysis. Normal bilateral ischial tuberosities. Normal visualized femoral head. There is osteoarthritic spur formation of the acetabular rim. There is mild articular joint space narrowing of the hip. Right hip prosthesis in place. IMPRESSION: Hip joint space narrowing. Stable de generative changes left hip. No fracture or dislocation. Electronically Signed: Robles MejiaDO at 19:47 EDT , Service support [phone], RAD/Hip 2-3 Views with Pelvis IMPRESSION: Hip joint space narrowing. Stable degenerative changes left hip. No fracture or dislocation. Electronically Signed: Roblessawyer BolandDO [place] a t 19:47 EDT , Service support [phone], CC: Darien Warren MD; Davian Mccray Tile Molder Hand: Signed 25-Jan-2016 ELECTROCARDIOGRAM, COMPLETE (ECG) (79944) Result: [MEASUREMENTS ANALYSIS] Date of Test: 01/25/2016 11:29:25; Heart Rate: 71; WV Interval: 168; QRS: 86; QT Interval: 386; Corrected QT Interval (QTc): 405; P Wave [place]: 46; QRS Wave [place]: 5; T Wave [place]: 22; Blood Pressure: 124/78 [ECG DIAGNOSTIC STATEMENTS] Date of Test: 01/25/2016 11:29:25; Summary: Sinus Rhythm -Anteroseptal infarct -age undetermined -Old inferior infarct. ABNORMAL 25-Jan-2016 Pelvis 1 or 2 Views Result: Comments: See Note; NOTES: [facility] Imaging Services [address] [place] [address] Verdana 4d Pelvis 1 or 2 Views MR#: [id number] Acct: [id number] Name: Radha MAHARAJ Rep #: [id number] : 1945 F 70 From: Doroteo Salgado MD PCP: Davian Mccray Status: REG CLI Study: Pelvis 1 or 2 Views Date of Exam: 01/25/16 Exam# [id number] Ordering Dr: Yadira Nina dma, MD STUDY: X-RAY - PELVIS REASON FOR EXAM: Female, 70 years old. Bilateral hip pain, arthritis. TECHNIQUE: One view of the pelvis was obtained. COMPARISON: Prior study of 06/19/14 FINDINGS: There is a non-specific bowel gas pattern. Normal visualized soft tissue structures. Several undissolved tablets are seen in the rectosigmoid region. There i s a focus of mottled sclerosis of the superior right SI joint, appearing stable in the interval. Normal visualized bilateral superior and inferior pubic rami. Normal pubic symphysis. Normal ischial tu berosities. Status post total right hip replacement changes are noted. There is no evidence of implant loosening or no associated fracture or dislocation. There are mild hypertrophic osteoarthritic changes of the left hip joint. There are status post lower lumbar spinal fusion changes with interpeduncular screws noted. IMPRESSION: Focus of mottled scler osis of the superior right SI joint, appearing stable in the interval. Status post total right hip replacement changes again seen. Mild hypertrophic osteoarthritic changes of the left hip joint. Low er lumbar spinal fusion changes seen with interpeduncular screws noted. Several undissolved tablets are seen in the rectosigmoid region. Electronically Signed: Doroteo Salgado MD at 16 :50 EDT , Service support [phone], RAD/Pelvis 1 or 2 Views IMPRESSION: Focus of mottled sclerosis of the superior right SI joint, appear ing stable in the interval. Status post total right hip replacement changes again seen. Mild hypertrophic osteoarthritic changes of the left hip joint. Lower lumbar spinal fusion changes seen with i nterpeduncular screws noted. Several undissolved tablets are seen in the rectosigmoid region. Electronically Signed: Doroteo Salgado MD at 16:50 EDT , Service suppor t [phone], CC: Davian Mccray; Gemma Nina MD Tile Molder Hand: Signed 19-Nov-2015 Vert Fx Asess/Lat Bone Den(H) Result: Comments: See Note; NOTES: [facility] Imaging Services [address] [place] [address] Verdana 4d Vert Fx Asess/Lat Bone Den(H) MR#: [id number] Acct: [id number] Nam e: MAR MAHARAJ Rep #: [id number] : 1945 F 70 From: Florian Valenzuela MD PCP: Davian Mccray Status: REG CLI Study: Vert Fx Asess/Lat Bone Den(H) Date of Exam: 11/19/15 Exam# [id number] [facility] Dr: Davian Mccray STUDY: DUAL ENERGY X-RAY ABSORPTIOMETRY / DXA REASON FOR EXAM: Female, 70 years old. Loss of height. TECHNIQUE: Bone Mineral Density (BMD) measurements of lumbar spine was obtained for vertebral fracture assessment. COMPARISON: None. FINDINGS: A lateral view of the thoracic and lumbar spine was obtained. There is evidence of i ncreased kyphosis with multilevel spondylosis and disc space narrowing. There is evidence of prior fusion at the L4-L5 level. There is minimal loss of right of the T9 vertebrae. Reference Information: The T-score is the number of standard deviations above or below the standard which is normal for young adults at their peak bone mineral density. The World He alth Organization (WHO) interprets the T-scores as follows: Above -1 Normal bone density Between -1 and -2.5 Osteopenia Equal to / or below -2.5 Osteoporosis As a practical clinical guideline, os teopenia may be graded as follows: Mild -1 through -1.5 Moderate -1.6 through -2.0 Severe -2.1 through -2.4 The Z-score is the number of standard deviations above or below age-matched controls. A Z-score of less than -1.5 would be considered abnormal. References: 1. NIH Osteoporosis and Related Bone Diseases http://www.osteo.org 2. International Society for Clinical Densitometry http://www.i scd.org 3. National Osteoporosis Foundation http://www.nof.org Electronically Signed: Florian Valenzuela MD at 8:52 EDT Tel [phone], Service support [phone], CC: Davian Mccray Tile Molder Hand: Signed 19-Nov-2015 Bilat Scrn Digital AND CAD Result: Comments: See Note; NOTES: [facility] Imaging Services [address] [place] [address] Verdana 4d Bilat Scrn Digital AND CAD MR#: [id number] Acct: [id number] Name: MAR MAHARAJ Rep #: [id number] : 1945 F 70 From: Florian Valenzuela MD PCP: Davian Mccray Status: REG CLI Study: Bilat Scrn Digital AND CAD Date of Exam: 11/19/15 Exam# [id number] Ordering Dr: Davian Mccray MAMMOGRAPHY - BILATERAL SCREENING REASON FOR EXAM: Female, 70 years old. Routine annual screening examination. PERTINENT HISTORY: Aunt with breast cancer. TECHNIQUE: Digital examination. Mediolateral oblique (MLO) and craniocaudad (CC) views of both breasts were obtained. CAD: CAD was performed on this study. COMPARISON: Comparison is made with prior study dated November 022014 and June 20, 2013. FINDINGS: Breast Composition: There are scattered areas of fibroglandular density. There are no dominant masses or suspicious peg cifications. No other significant abnormalities are identified. There has been no significant change since the prior study. IMPRESSION: Stable bilateral screen ing mammogram. Yearly follow-up mammogram recommended. (A) ASSESSMENT CATEGORY: BIRADS Category 1: Negative. A letter regarding these results will be sent to t he patient by the facility within 30 days. Approximately 10% of breast cancers are not detected by mammography. A normal mammogram should not delay biopsy of a clinically suspicious abnormality. R S2015 Electronically Signed: Florian Valenzuela MD at 10:06 EDT Tel [phone], Service support [phone], CC: Davian Mccray Tile Molder Hand: Signed 19-Nov-2015 Bilat Scrn Digital AND CAD Result: Comments: See Note; NOTES: [facility] Imaging Services [address] [place] [address] Verdana 4d Bilat Scrn Digital AND CAD MR#: [id number] Acct: [id number] Name: MAR MAHARAJ Rep #: [id number] : 1945 F 70 From: Florian Valenzuela MD PCP: Davian Mccray Status: REG CLI Study: Bilat Scrn Digital AND CAD Date of Exam: 11/19/15 Exam# [id number] Ordering Dr: Davian Mccray MAMMOGRAPHY - BILATERAL SCREENING REASON FOR EXAM: Female, 70 years old. Routine annual screening examination. PERTINENT HISTORY: Aunt with breast cancer. TECHNIQUE: Digital examination. Mediolateral oblique (MLO) and craniocaudad (CC) views of both breasts were obtained. CAD: CAD was performed on this study. COMPARISON: Comparison is made with prior study dated November 022014 and June 20, 2013. FINDINGS: Breast Composition: There are scattered areas of fibroglandular density. There are no dominant masses or suspicious peg cifications. No other significant abnormalities are identified. There has been no significant change since the prior study. IMPRESSION: Stable bilateral screen ing mammogram. Yearly follow-up mammogram recommended. (A) ASSESSMENT CATEGORY: BIRADS Category 1: Negative. A letter regarding these results will be sent to t he patient by the facility within 30 days. Approximately 10% of breast cancers are not detected by mammography. A normal mammogram should not delay biopsy of a clinically suspicious abnormality. R [id number] Electronically Signed: Florian Valenzuela MD at 10:06 EDT Tel [phone], Service support [phone], CC: Davian Mccray Tile Molder Hand: Signed 19-Nov-2015 Dexa Bone Density Study () Result: Comments: See Note; NOTES: [facility] Imaging Services [address] [place] [address] Verdana 4d Dexa Bone Density Study () MR#: [id number] Acct: [id number] Name : MAR MAHARAJ Rep #: [id number] : 1945 F 70 From: Florian Valenzuela MD PCP: Davian Mccray Status: [facility] Study: Dexa Bone Density Study () Date of Exam: 11/19/15 Exam# [id number] Order ing Dr: Davian Mccray STUDY: DUAL ENERGY X-RAY ABSORPTIOMETRY / DXA REASON FOR EXAM: Female, 70 years old. Menopause. Loss of height. TECHNIQUE: Bone Mineral Density (BMD) measurements of the rig ht forearm was obtained. The patient is status post hip replacement and lumbar surgery. COMPARISON: Comparison is made with prior study dated June 20, 2013. FINDINGS: Right Forearm: g/cm2 (0.723) / T-score (-1.7) / Z-score (0.3) Since prior study, there has been a bone loss of 0.7%. IMPRESSION: The patient is con sidered osteopenic as outlined below according to World Shoaib Organization (WHO) criteria with a moderate fracture risk. There has been worsening of bone density since the previous examination. ____ Reference Information: The T-score is the number of standard deviations above or below the standard which is normal for young adults at their peak bone mineral densi ty. The World Health Organization (WHO) interprets the T-scores as follows: Above -1 Normal bone density Between -1 and -2.5 Osteopenia Equal to / or below -2.5 Osteoporosis As a practical clinic al guideline, osteopenia may be graded as follows: Mild -1 through -1.5 Moderate -1.6 through -2.0 Severe -2.1 through -2.4 The Z-score is the number of standard deviations above or below age-match ed controls. A Z-score of less than -1.5 would be considered abnormal. References: 1. NIH Osteoporosis and Related Bone Diseases http://www.osteo.org 2. International Society for Clinical Densitome try http://www.iscd.org 3. National Osteoporosis Foundation http://www.nof.org Electronically Signed: Florian Valenzuela MD at 12:53 EDT Tel [phone], Service support [phone], F ax [phone] CC: Davian Mccray Tile Molder Hand: Signed 19-Nov-2015 Thyroid Result: Comments: See Note; NOTES: [facility] Imaging Services [address] [place] [address] Verdana 4d Thyroid MR#: [id number] Acct: [id number] Name: MAR MAHARAJ Rep #: [id number] : 1945 F 70 From: Stephen Walton DO PCP: Davian Mccray Status: REG CLI Study: Thyroid Date of Exam: 11/19/15 Exam# [id number] Ordering Dr: Davian Mccray STUDY: THYROID ULTRASOUN D REASON FOR EXAM: Female, 70 years old. Nodules. TECHNIQUE: Ultrasound evaluation of the thyroid was performed with real-time and static rueda-scale imaging. COMPARISON: December 15, 2014. FINDINGS: RIGHT LOBE: The right lobe of the thyroid gland measures 4.3 x 1.6 x 1.0 cm. There is a heterogeneous echotexture. There are multiple nodules in the right thy roid. The largest measures.650.3 by 0.5 cm. This is hypodense and weighs along the posterior aspect of the mid to lower thyroid and may represent a parathyroid gland. There is a 0.5 x 0.3 x 0.3 cm com plex cystic and solid nodule in the mid thyroid. Slightly more superior and anterior there is a 5 x 6 x 3 cm predominantly cystic complex nodule. These appear unchanged. LEFT LOBE: The left lobe of the thyroid gland measures 3.4 x 1.3 x 1.0 cm. There is a heterogeneous echotexture. There are no demonstrated solid, cystic or complex lesions. The hypoechoic nodule seen on the previous examinatio n is not appreciated on the current study. ISTHMUS: The isthmus measures 0.2 cm. The regional lymph nodes are normal. IMPRESSION: 1. Stable right thyroid nod ules. 2. Nonvisualization of the left thyroid nodule seen on the earlier examination. Electronically Signed: Stephen Walton DO at 16:48 EDT Tel [phone], Service support [phone], CC: Davian Mccray Tile Molder Hand: Signed 17-Dec-2014 Cerv Spine 2 or 3 Views Result: Comments: See Note; NOTES: [facility] Imaging Services [address] [facility] [place] [place] [address] Radiology Report MR#: [id number] Acct: [id number] Name: MAR MAHARAJ Rep #: [id number] : 1945 F 69 From: Vitaly Turner MD PCP: Libby Mai DO Status: REG CLI Study: Cerv Spine 2 or 3 Views Date of Exam: 12/17/14 Exam# [id number] Ordering Dr: Jose Alejandro Yepez STUDY: X-RAY - CERVICAL SPINE REASON FOR EXAM: Female, 69 years old. Had a c-spine fusion in December of last yr. is now having numbness in LT shoulder x couple months TECHNIQUE: 3 lateral view(s) of the cervical spine were obtained. COMPARISON: Prior CT of the cervical spine 09-23-14 FINDINGS: Normal anterior atlantoaxial articulation. Normal odontoid process. There a re no signs of instability on the lateral flexion extension views. There is straightening of the normal cervical lordosis. The patient is status post anterior fusion from C3-C6 with metallic plate an d screws. The inferior screw at the level C6 is about 3 mm extruded from the plate . The soft tissue structures are unremarkable. IMPRESSION: Status post anter ior fusion from C3-C6, with 3 mm extrusion of the C6 screw. Loss of the normal lordosis. No signs of instability. Electronically Signed: Vitaly Turner MD, FACR at 11:32 EDT Tel , Service support [phone], 0045 RAD/Cerv Spine 2 or 3 Views IMPRESSION: Status post anterior fusion from C3-C6, with 3 mm extrusion of the C6 screw. Loss of the normal lordosis. No signs of instability. Electronically Signed: Vitaly Turner MD, FACR at 11:32 EDT , Service support [phone], CC: JOSE ALEJANDRO YEPEZ; Libby Mai DO Tile Molder Hand: Signed 17-Dec-2014 Spine Cervical (Routine) Result: Comments: See Note; NOTES: [facility] Imaging Services [address] [place] [address] MRI Report MR#: [id number] Acct: [id number] Name: MAR MAHARAJ Rep #: [id number] : 1945 F 69 From: Vitaly Turner MD PCP: Libby Mai DO Status: REG CLI Study: Spine Cervical (Routine) Date of Exam: 12/17/14 Exam# [id number] Ordering Dr: Jose Alejandro Yepez STUDY: MRI CERVIC AL SPINE WITHOUT CONTRAST REASON FOR EXAM: Female, 69 years old. Neck pain, left shoulder pain and arm pain. History of previous surgery in the cervical spine can be one malformation. TECHNIQUE: S tandardized fat and water weighted pulse sequences were obtained in the sagittal and axial planes. COMPARISON: Prior preoperative MRI of the cervical spine on 10-05-[address] of the cervical spine o n 09-23-14 FINDINGS: There is a 7 mm tonsillar ectopia. The patient is status post occipital osteotomy. Normal anterior atlantoaxial articulation. Normal odontoi d process. There is straightening of the normal cervical lordosis. The patient is status post anterior fusion with metallic plate, screws and interbody bone graft from C3-C6. C2-3: Normal endplat es. Normal disc height, signal and morphology. Normal central canal and intervertebral neural foramina. C3-4: Status post anterior fusion. Normal central canal and intervertebral neural foramina. C4-5: Status post anterior fusion. Normal central canal and intervertebral neural foramina. C5-6: Status post anterior fusion. Normal central canal and intervertebral neural foramina. C6-7: Normal endplates. Normal disc height, signal and morphology. Normal central canal and intervertebral neural foramina except for small bilateral perineural cysts. C7-T1: Normal endplates. Normal disc heigh t, signal and morphology. Normal central canal and intervertebral neural foramina. Normal cervical cord. Normal visualized soft tissue structures. IMPRESSION: Status post anterior fusion from C3-C6. Status post occipital craniotomy for Chiari I malformation. Tonsillar ectopia. No evidence of syringomyelia One the normal lordosis. Electronically Sig chio: Vitaly Turner MD, FACR at 11:15 EDT , Service support [phone], CC: JOSE ALEJANDRO YEPEZ; Libby Mai DO Tile Molder Hand: Signed 15-Dec-2014 Thyroid Result: Comments: See Note; NOTES: [facility] Imaging Services [address] [place] [address] Ultrasound Report MR#: [id number] Acct: [id number] Name: MAR MAHARAJ Rep #: [id number] : 1945 F 69 From: Stephen Walton DO PCP: Libby Mai DO Status: REG CLI Study: Thyroid Date of Exam: 12/15/14 Exam# [id number] Ordering Dr: Lisa Nicholson MD STUDY: THYROID ULTRASOUND REASON FOR EXAM: Female, 69 years old. Goiter. TECHNIQUE: Ultrasound evaluation of the thyroid was performed with real-time and static rueda-scale imaging. COMPARISON: May 02, 2014. FINDINGS: RIGHT LOBE: The right lobe of the thyroid gland measures 4.6 x 1.8 x 1.1 cm. There is a homogeneous echotexture. There are 4 thyroid nodules. 0.5 x 0.2 x 0.5 cm p redominantly cystic nodule in the upper pole. There is a 0.6 x 0.3 x 0.4 cm predominantly solid nodule in the mid thyroid there is a 0.6 x 0.5 x 0.4 cm hypoechoic nodule in the posterior lower pole th is may represent a parathyroid gland. There is also a 0.4 x 0.3 x 0.4 cm mixed solid and cystic nodule in the most superior aspect of the thyroid. LEFT LOBE: The left lobe of the thyroid gland measu res 4.3 x 1.8 x 0.7 cm. There is a homogeneous echotexture. 0.8 x 0.8 x 0.6 cm hypoechoic nodule in the lower pole. ISTHMUS: The isthmus measures 0.2 cm. There is a question of a 0.9 x 0.4 x 0.4 c m lymph node superior to the left thyroid. IMPRESSION: Bilateral thyroid nodules. There is no major change when compared to the previous study. Electronicall y Signed: Stephen Walton DO at 13:38 EDT Tel [phone], Service support [phone], CC: Libby Mai DO; Lisa Nicholson MD Tile Molder Hand: Signed 17-Nov-2014 Bilat Scrn Digital AND CAD Result: Comments: See Note; NOTES: [facility] Imaging Services [address] [facility] [place] [address] Breast Imaging Report MR#: [id number] Acct: [id number] Name: MAR MAHARAJ Rep #: [id number] : 1945 F 69 From: Alfa Bettencourt MD PCP: Libby Mai DO Status: REG CLI Study: Bilat Scrn Digital AND CAD Date of Exam: 11/17/14 Exam# [id number] Ordering Dr: Libby Mai DO MAMMOGR APHY - BILATERAL SCREENING REASON FOR EXAM: Female, 69 years old. Routine annual screening examination. PERTINENT HISTORY: Mother with breast cancer. TECHNIQUE: Digital examination. Mediolateral oblique (MLO) and craniocaudad (CC) views of both breasts were obtained. CAD: CAD was performed on this study. COMPARISON: 06/20/13 FINDINGS: Breast Compositi on: There are scattered areas of fibroglandular density. There are no dominant masses or suspicious calcifications. Stable scattered punctate and lucent centered calcifications. No other significan t abnormalities are identified. There has been no significant change since the prior study. IMPRESSION: Stable bilateral screening mammogram. Yearly follow-up re commended. (A) ASSESSMENT CATEGORY: BIRADS Category 2: Benign. A letter regarding these results will be sent to the patient by the facility within 30 days. BR2 Approximately 10% of breast cancers are not detected by mammography. A normal mammogram should not delay biopsy of a clinically suspicious abnormality. Electronically Signed: Eddie Bettencourt MD at 12:06 EDT Tel , Service support [phone], 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 Hand: Signed 17-Nov-2014 Chest without Contrast Result: Comments: See Note; NOTES: [facility] Imaging Services [address] [place] [address] CAT Scan Report MR#: [id number] Acct: [id number] Name: MAR MAHARAJ Rep #: [id number] : 1945 F 69 From: Alfa Bettencourt MD PCP: Libby Mai DO Status: REG CLI Study: Chest without Contrast Date of Exam: 11/17/14 Exam# [id number] Ordering Dr: Libby Mai DO STUDY: CT CHEST W ITHOUT CONTRAST REASON FOR EXAM: Female, 69 years old. Lung nodule RADIATION DOSAGE (If Supplied By Facility): CTDIvol = ( 18.72 ) mGy, DLP = ( 677.42 ) mGycm TECHNIQUE: High resolution transaxia l imaging was performed without the administration of intravenous contrast material. Multiplanar coronal and sagittal images were reformatted. COMPARISON: 09/24/14 _ FINDINGS: Lung windows do not show a suspicious noncalcified mass or nodule. There are 2 small 2 to 3 mm subpleural nodules in the right lung base on axial image 70. No demonstrated pneumonia or inflammatory process. Scattered interstitial fibrotic changes are noted. The soft tissue windows show a normal-appearing thyroid gland. Scattered subcentimeter axillary and mediastinal lymph nodes. No pleural or pericardial effusions. Peripheral calcifications noted in the thoracic aorta without aneurysm. Limited cuts of the upper abdomen do not show suspicious solid organ abnormality, bony s tructures show degenerative change. IMPRESSION: Tiny subpleural nodules noted in the right lung base. There is no suspicious noncalcified mass or nodule, no orga nized infiltrate. No pleural or pericardial effusions Peripheral calcifications in the thoracic aorta without aneurysm Degenerative bony changes Electronically Signed: Eddie Bettencourt MD 2014 at 10:21 EDT Tel , Service support [phone], 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 Hand: Signed 23-Sep-2014 Brain/Head without Contrast Result: Comments: See Note; NOTES: [facility] Imaging Services [address] [place] [address] CAT Scan Report MR#: [id number] Acct: [id number] Name: MAR MAHARAJ Rep #: [id number] : 1945 F 69 From: Parminder Rashid MD PCP: Libby Mai DO Status: REG ER Study: Brain/Head without Contrast Date of Exam: 09/23/14 Exam# [id number] Ordering Dr: Rachel Avina MD STUDY: CT BRAIN WITHOUT CONTRAST REASON FOR EXAM: Female, 69 years old. Trauma RADIATION DOSAGE (If Supplied By Facility): CTDIvol = ( 65.88 ) mGy, DLP = ( 1156.01 ) mGycm TECHNIQUE: Transaxial CT imag ing of the brain was performed without administration of intravenous contrast material. COMPARISON: July 15, 2013 FINDINGS: There is soft tissue swelling ov erlying the left frontal bone without associated fracture. Suboccipital craniectomy is noted in association with Chiari one malformation Normal size ventricles and extra-axial spaces for the patient 's age. Normal white matter tracts. Hypoattenuated appearance the sella turcica consistent with partial empty sella deformity. Ts of the cerebral hemispheres. Normal basal ganglia and thalami. Normal brainstem. Normal cerebellum. There is no intracranial hemorrhage. There are no findings of an acute ischemic infarction. Normal visualized paranasal sinuses. IMPRESSION: Postop changes status post suboccipital craniectomy. Soft tissue swelling overlying the left frontal bone without associated skull fracture or intracranial bleed Electronically Citlali d: Parminder Rashid MD at 21:19 EST , Service support [phone], CC: Libby Mai DO; Rachel Avina MD Tile Molder Hand: Signed 23-Sep-2014 Spine Cervical without Contras Result: Comments: See Note; NOTES: [facility] Imaging Services [address] [place] [address] CAT Scan Report MR#: [id number] Acct: [id number] Name: MAR MAHARAJ Rep #: [id number] : 1945 F 69 From: Parminder Rashid MD PCP: Libby Mai DO Status: REG ER Study: Spine Cervical without Contras Date of Exam: 09/23/14 Exam# [id number] Ordering Dr: Rachel Avina MD LORENA DY: CT CERVICAL SPINE WITHOUT CONTRAST REASON FOR EXAM: Female, 69 years old. Trauma RADIATION DOSAGE (If Supplied By Facility): CTDIvol = ( 58.75 ) mGy, DLP = ( 1012.40 ) mGycm TECHNIQUE: High r esolution transaxial imaging was performed without contrast material. Sagittal and coronal images were reconstructed. COMPARISON: None FINDINGS: Normal craniov ertebral junction. Normal anterior atlantoaxial articulation. Normal odontoid process. Decreased cervical lordosis and moderate dextroscoliosis. Normal vertebral bodies and posterior osseous element s. C2-3: Normal endplates. Normal disc height and small central disc protrusion Normal central canal and intervertebral neuroforamina. C3-4: Status post anterior fusion. No evidence for disc protru tamika Normal central canal. Bilateral neural foraminal stenosis secondary to bony hypertrophy C4-5: Postop changes status post anterior fusion. No focal disc protrusion Normal central canal. Moderat e bilateral neural foraminal stenosis secondary to bony hypertrophy C5-6: Postop change status post anterior fusion. No evidence for focal disc protrusion Normal central canal. Moderate bilateral ne ural foraminal stenosis secondary to bony hypertrophy C6-7: Normal endplates. Normal disc height and morphology. Normal central canal and intervertebral neuroforamina. C7-T1: Normal endplates. Nor mal disc height and morphology. Normal central canal and intervertebral neuroforamina. Postop changes status post suboccipital craniectomy IMPRESSION: Status p ost anterior fusion of C3-4 C4-5 and C5-6 Multilevel neuroforaminal stenosis secondary to bony hypertrophy. No evidence for acute fracture or subluxation Electronically Signed: Parminder Rashid MD at 21:25 EST , Service support [phone], CC: Libby Mai DO; Rachel Avina MD Tile Molder Hand: Signed 21-Aug-2014 Discharge Instruction Result: Comments: See Note; NOTES: [facility] Medical Records Department [address] [place] [address] Instructions for Home/Discharge Instructions 08/21/14 1712 MR#: [id number] Acc t: [id number] Name: MAR MAHARAJ Rep #: [id number] : 1945 69 From: Galo Antonio PA-C PCP: Libby Mai DO Status: ADM IN Discharge Diet: 1800 Calorie Control Diet Discharge Activ ity: May Not Drive, May not drive while taking narcotic pain medications., Use Walker May shower in (days): 2 - LONG INCISION IS CLEAN DRY WITHOUT ACTIVE DRAINAGE Ice area for (Minutes): 20 - every hour while awake. Weight Bearing Status: Weight bearing as brandon Elevate: Operative Extremity Additional Activity Instructions:: Wear elastic stockings for 2 weeks after your surgery. Call your doctor if your incision/area has: Continuous Slow Oozing, Sudden Increased Bleeding, Increased Pain/ Swelling, Increased Redness, Foul Smelling Discharge Call your doctor if you observe: Fever of 101 or Higher, Coldness, Increased Pain, Numbness or Tingling, Change in Color, Calf discomfort, Uncontrolled pain Change Dressing in (Days):: 1 - and daily as needed. Additional Instructions: F/U APPT S PER [facility] POST-OP INSTRUCTIONS F/U WITH GLENN RO 09/03/14 9:15 AM PHYSICAL THERAPY APPT WITH COREY @ [facility] 08/25/14 @ 9:00 AM, WILL HAVE TO CALL AND RESCHEDULE SINCE PATIENT WILL BE IN 4TH MIG[facility] OR REHAB PATIENT TO BE ON THE FOLLOWING PRESCRIPTIONS 1. PERCOCET 5-325 MG PO Q4-6 HRS PRN PAIN 2. XARELTO 10 MG PO DAILY FOR 10 DAYS TOTAL POST-OPERATIVELY Allergies/Adverse Reactions: Allergies rosuvastatin calcium [From Crestor] Allergy (Verified 08/19/14 12:00) Itching simvastatin Allergy (Verified 08/19/14 12:00) Itching Medications to take at Discharge Pantoprazole Sodium [Protoni x] 40 mg PO BID Acyclovir [Zovirax] 400 mg PO DAILY Amlodipine/Benazepril [Lotrel 10-40 MG Capsule] 1 capsule PO DAILY Ascorbic Acid [Vitamin C] 1,000 mg PO DAILY@0800 BusPIRone [Buspar] 15 mg PO DA MIKEL Cholecalciferol (Vitamin D3) [Vitamin D3] 1,000 unit PO DAILY Duloxetine Hcl [Cymbalta] 30 mg PO BID Sucralfate [Carafate] 1 gm PO BID Vitamin E 1,000 units PO DAILY Zolpidem Tartrate [Ambien] 10 mg PO QHS Gabapentin [Neurontin] 600 mg PO TIDCM Please Follow Up With: Glenn Ro 08/21/14 6115 <Electronically signed by Galo Antonio PA-C> Date ___ Galo Antonio PA-C CC: Libby Mai DO 19-Aug-2014 Knee 1 or 2 Views Result: Comments: See Note; NOTES: [facility] Imaging Services [address] [place] [address] Radiology Report MR#: [id number] Acct: [id number] Name: MAR MAHARAJ Rep #: [id number] : 1945 F 69 From: Bakari Kenny MD PCP: Libby Mai DO Status: ADM IN Study: Knee 1 or 2 Views Date of Exam: 08/19/14 Exam# [id number] Ordering Dr: Darien Avina MD STUDY: X-RAY - RIGHT KNEE REASON FOR EXAM: Female, 69 years old. Postop right knee arthroplasty TECHNIQUE: 2 view(s) of the knee. COMPARISON: May 23, 2014 preop FIND INGS: Normal visualized distal femur. Normal visualized proximal tibia and fibula. Normal proximal tibiofibular articulation. There is a new total knee arthroplasty which appears in anatomic alignmen t without evidence of loosening. There is gas within the joint as well as fluid. Cortical margins are intact. Normal patellofemoral articulation. IMPRESSION: Status post total knee arthroplasty as above Electronically Signed: Bakari Kenny MD at 16:29 EST , Service support [phone], CC: Libby Mai DO; Darien Avina MD Tile Molder Hand: Signed 12-Aug-2014 History and Physical Exam Result: Comments: See Note; NOTES: [facility] Medical Records Department [address] [place] [address] History and Physical 08/11/14 1334 MR#: [id number] Acct: [id number] Name: MAR MAHARAJ Rep #: [id number] : 1945 69 From: lGenn Ro PCP: Libby Mai DO Status: PRE IN Location: [facility] DATE OF SERVICE: 08/19/2014 PRIMARY CARE PROVIDER: Libby Mai D.O. PROCEDURE TYPE: Right total knee arthroplasty. PROCEDURE DATE: August 19, 2014 ATTENDING PHYSICIAN: Darien Avina M.D. HISTORY OF PRESENT ILLNESS: This is a 69-year-old female, who starte d with worsening right knee pain about 6 months ago. Pain is aching and stabbing, worse with walking any distance, worse with sitting for an extended period of time. Sitting, resting and elevating th e leg does help at times. She is having difficulty with activities of daily living such as dressing secondary to the pain. She has difficulty with housework and shopping. She cannot walk any distanc e especially in the grocery store without pain. She has tripped and stumbled due to weakness and pain in the right knee. She has tried oral medications of Percocet. She has not tried physical therapy . She has had 2 cortisone injections/aspirations with short-term pain relief. She has not tried viscosupplementation. She has not had previous surgeries on this knee. She does not ambulate with an a ssistive device. She has tried bracing. X-rays of that knee reveal near complete loss of joint space at the lateral compartment. After failing conservative measures and discussing all treatment opti ons with Dr. Darien Avina, the patient agreed to proceed with the right total knee arthroplasty. PAST MEDICAL HISTORY: Significant for 1. Fibromyalgia. 2. Hypertension. 3. Diabetes mellitus. 4. History of cancer. PAST SURGICAL HISTORY: 1. Previous right total hip arthroplasty. 2. L3 through L5 lumbar surgery, bone added from hip and stretched in 2000. 3. Hysterectomy. 4. Appendectomy. 5 . Cholecystectomy. 6. Brain surgery x2. 7. Carpal tunnel surgery bilaterally. 8. Cervical surgery in December 2013. SOCIAL HISTORY: The patient is retired. She denies tobacco use, denies alcohol use, denies illicit drug use. ALLERGIES: No known drug allergies. CURRENT MEDICATIONS: Include 1. Ambien 10 mg 1 p.o. at bedtime. 2. BuSpar 15 mg 2 and one-half tab p.o. daily. 3. Cymbalta 30 mg 1 p.o. b.i.d. 4. Glucophage 500 mg 1 tab p.o. daily. 5. Lotrel 10-40 mg 1 p.o. daily. 6. Percocet 5-325 one-two q.4-6h. p.r.n. pain. 7. Protonix 20 mg 1 p.o. b.i.d. 8. Vitamin C 1000 mg 1 p.o. lina y. 7. Vitamin D 1000 units 1 p.o. daily. 8. Vitamin E 1000 units 1 p.o. daily. 9. Zovirax 400 mg 1 tab p.o. b.i.d. REVIEW OF SYSTEMS: Documented in the [facility] medical history sheet. Please refer to the attached document. The patient admits to dentures being full upper plate. Denies glasses or hearing aids. PHYSICAL EXAMINATION: VITAL SIGNS: Height 63 inches, weight 166 pounds, BMI 29.4. Bl ood pressure 138 /78, pulse 70, respirations 16, temperature 98.4. GENERAL: The patient is alert and oriented x3. No acute distress at rest. Breathing easily without respiratory distress. HEENT: He ad: Normocephalic, atraumatic. Eyes: PERRLA, EOMI, sclerae are anicteric, conjunctivae without injection. Ears: Auditory acuity grossly intact bilaterally. Nose: Bilateral patent nares without tende rness or drainage. Throat: Pharynx clear without erythema or exudate. Tongue and uvula midline. Buccal mucosa pink and moist. NECK: Supple without adenopathy, JVD, carotid bruit, masses or tenderness . CHEST: Symmetrical, nontender to palpation. AP diameter within normal limits. HEART: Regular rate and rhythm without murmurs, rubs or gallops appreciated at this time. LUNGS: Clear to auscultation bilaterally without wheezes, rales or rhonchi. ABDOMEN: Soft, nondistended. Normoactive bowel sounds x4 without tenderness. NEUROLOGIC: Cranial nerves II through XII grossly intact without focal sen sorimotor deficits noted. BACK: Without CVA tenderness or tenderness to palpation. EXTREMITIES/MUSCULOSKELETAL: Right knee has mild effusion. She lacks 2-3 degrees of full extension, flexion 90 of the right knee, mild tenderness medially. No tenderness laterally. DIAGNOSTIC STUDIES: X-rays of right knee dated May 30, 2014, [facility], weightbearing, AP, tunnel, sunrise, lateral views reveal narrowing in the lateral compartment, near complete loss of joint space. IMPRESSION: 1. Progressive osteoarthritis, right knee, primarily lateral compartment with effusion and flexion contracture. 2. Fibromyalgia. 3. Hypertension. 4. History of cancer. 5. Diabetes mellitus. PLAN: Dr. Darien Avina did discuss and review with the patient all treatment options including surgical versus nonsurgical. At this time, the patient does wish to proceed with right total knee arthroplasty. Potential risks, benefits and complications of this procedure wer e reviewed in detail including but not limited to , infection, nerve and blood vessel damage, persistent pain, numbness, tingling, paresthesias, blood clot, pulmonary embolism and requirement of possible further surgery. The patient expressed full understanding, has no questions for the doctor. The patient does agree to proceed with the above- stated procedure and [facility]. YADIRA Narvaez T: NTS JOB: [id number] 08/12/14 0740 <Electronically signed by Glenn Ro > Date: Time: Glenn Ro CC: Glenn Mai DO Date Dictated: 08/11/141333 Date Transcribed: 08/11/141333 Tile Molder Hand: Signed ____ I have re-examined the patient. There a re no clinical changes since date of exam. ____ See Progress Notes for Changes ____ Dictated on Admission Date: Time: Signature: 23-May-2014 Hip min 2 Views Result: Comments: See Note; NOTES: [facility] Imaging Services [address] [place] [address] Radiology Report MR#: [id number] Acct: [id number] Name: MAR MAHARAJ Rep #: [id number] : 1945 F 68 From: Florian Valenzuela MD PCP: Libby Mai DO Status: REG CLI Study: Hip min 2 Views Date of Exam: 05/23/14 Exam# [id number] Ordering Dr: Libby Mai DO STUDY: X-RAY - RIGHT HIP REASON FOR EXAM: Female, 68 years old. Pain following a recent fall. TECHNIQUE: 3 view(s) of the hip. COMPARISON: None. FINDINGS: The patient is status post right total hip replacement. Normal visualized superior and inferior pubic rami and ischial tuberosities. IMPRESSION: The patient is status post right total hip replacement. No acute abnormality is seen. Electronically Signed: Florian Valenzuela MD at 9:41 EDT Tel [phone], Service support [phone], 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 Hand: Signed 23-May-2014 Knee 4 or More Views Result: Comments: See Note; NOTES: [facility] Imaging Services [address] [place] [address] Radiology Report MR#: [id number] Acct: [id number] Name: MAR MAHARAJ Rep #: [id number] : 1945 F 68 From: Florian Valenzuela MD PCP: Libby Mai DO Status: REG CLI Study: Knee 4 or More Views Date of Exam: 05/23/14 Exam# [id number] Ordering Dr: Libby Mai DO STUDY: X- RAY - RIGHT KNEE REASON FOR EXAM: Female, 68 years old. Lateral knee pain following a fall. TECHNIQUE: 4 view(s) of the knee. COMPARISON: None. FINDINGS: N ormal visualized distal femur. Normal visualized proximal tibia and fibula. Normal proximal tibiofibular articulation. There is mild degenerative arthrosis of the medial femorotibial compartment. Th ere is moderate degenerative arthrosis of the lateral femorotibial compartment with moderate joint space narrowing. Degenerative spur is seen along the anterior superior portion of the patella. Smal l joint effusion. IMPRESSION: Degenerative arthrosis. Small joint effusion. No fracture is seen. Electronically Signed: Florian Valenzuela MD at 9:42 EDT Tel [phone], Service support [phone], 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 Hand: Signed 02-May-2014 Chest without Contrast Result: Comments: See Note; NOTES: [facility] Imaging Services [address] [place] [address] CAT Scan Report MR#: [id number] Acct: [id number] Name: MAR MAHARAJ Rep #: [id number] : 1945 F 68 From: Cristhian Spears MD PCP: Libby Mai DO Status: REG CLI Study: Chest without Contrast Date of Exam: 05/02/14 Exam# [id number] Ordering Dr: Libby Mai DO STUDY: CT CH EST WITHOUT CONTRAST REASON FOR EXAM: Female, 68 years old. Followup lung nodule RADIATION DOSAGE (If Supplied By Facility): CTDIvol = ( 18.88 ) mGy, DLP = ( 692.56 ) mGycm TECHNIQUE: High resolu tion transaxial imaging was performed without the administration of intravenous contrast material. Multiplanar coronal and sagittal images were reformatted. COMPARISON: Including June 06, 2013 __ FINDINGS: Small pulmonary nodules are stable. This includes noncalcified 4 mm nodule in the right upper lobe anteriorly on axial image 47/122. Calcified right low er lung nodule on image 77/122. Calcified left midlung nodules on image 32/122 and 52/122. There is noncalcified 3 mm left upper lobe nodule on image 23/122. Linear and ill-defined increased densities in the lung bases are stable. There is no demonstrated pleural abnormality. Normal heart and pericardium. There are multiple small lymph nodes within the mediastinum, which are normal in size and morphology most compatible with reactive lymph hyperplasia. Normal hilar regions. Normal unenhanced pulmonary arteries. There is atherosclerotic calcification of the aortic arch with tortuosity and elongation of the aortic arch and descending thoracic aorta. There are multi- level degenerative changes of the thoracic spine. There is no demonstrated abnormality of the visualized upper abdomen. IMPRESSION: Stable pulmonary nodules. No new mass. Basilar atelectasis or scarring. Electronically Signed: Cristhian Spears MD at 15:32 EDT Tel , Service support [phone], 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 Hand: Signed 02-May-2014 Thyroid Result: Comments: See Note; NOTES: [facility] Imaging Services [address] [place] [address] Ultrasound Report MR#: [id number] Acct: [id number] Name: MAR MAHARAJ Rep #: [id number] : 1945 F 68 From: Stephen Walton DO PCP: Libby Mai DO Status: REG CLI Study: Thyroid Date of Exam: 05/02/14 Exam# [id number] Ordering Dr: Libby Mai DO STUDY: THYROID ULTRASOUND REASON FOR EXAM: Female, 68 years old. Nodule. TECHNIQUE: Ultrasound evaluation of the thyroid was performed with real-time and static rueda-scale imaging. COMPARISON: MRI of the cervical spine, Oct ruary 2013. CT of the soft tissues, July 15, 2013. Thyroid ultrasound, October 03, 2012 FINDINGS: RIGHT LOBE: The right lobe of the thyroid gland measure s 4.5 x 1.4 x 1.0 cm. There is a homogeneous echotexture. There is a 4 x 4 by 4 mm hypoechoic focus in the posterior thyroid which may represent a small hypoechoic nodule versus parathyroid gland. Th ere is a 1.1 x 0.6 x 0.1 cm well-defined hypoechoic nodule in the mid thyroid. There is a 4 x 4 by 2 mm hypoechoic nodule in the upper lobe. LEFT LOBE: The left lobe of the thyroid gland measures 3. 7 x 0.6 x 1.1 cm. There is a heterogeneous echotexture. The regional lymph nodes are normal. There is a 0.8 x 0.6 x 0.5 cm hypoechoic nodule in the lower pole. ISTHMUS: The isthmus measures 0.2 cm. The regional lymph nodes are normal. No major change in findings when compared with study of October 03, 2012. IMPRESSION: Normal ultrasound examination of th e thyroid. Electronically Signed: Stephen Walton DO at 19:17 EDT Tel [phone], Service support [phone], 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 Hand: Signed 27-Feb-2014 L/S Spine Min 4 Views Result: Comments: See Note; NOTES: [facility] Imaging Services [address] [place] [address] Radiology Report MR#: [id number] Acct: [id number] Name: MAR MAHARAJ Rep #: [id number] : 1945 F 68 From: Florian Valenzuela MD PCP: Libby aMi DO Status: REG CLI Study: L/S Spine Min 4 Views Date of Exam: 02/27/14 Exam# [id number] Ordering Dr: Jose Alejandro Yepez STUDY: X-R AY - LUMBAR SPINE REASON FOR EXAM: Female, 68 years old. History of spinal stenosis. TECHNIQUE: 5 view(s) of the lumbar spine were obtained including oblique views. COMPARISON: None FINDINGS: The patient is status post laminectomy and interpedicular screw fixation at the L3-L4 and L4-L5 levels. A bone stimulator device with electrodes is seen. Intertran sverse process bone graft is also present. Normal lumbar lordosis. There is a minimal dextroscoliosis of the lumbar spine. There is a grade 2 anterior listhesis of L4 on L5. Normal vertebral bodies and endplates. There is multi-level degenerative disc disease with multi-level disc space narrowing. The patient is status post right total hip replacement. The soft tissue structures are unremarka ble. IMPRESSION: The patient is status post laminectomy and fusion at the L3-L4 and L4-L5 levels with bone graft and bone stimulator. Grade 2 anterolisthesis of L4 on L5. Electronically Signed: Florian Valenzuela MD at 10:31 EDT Tel [phone], Service support [phone], RAD/L/S Spine Min 4 Views IMP RESSION: The patient is status post laminectomy and fusion at the L3-L4 and L4- L5 levels with bone graft and bone stimulator. Grade 2 anterolisthesis of L4 on L5. Electronically Signed: Florina khan MD at 10:31 EDT Tel [phone], Service support [phone], CC: JOSE ALEJANDRO YEPEZ; Libby Mai DO Tile Molder Hand: Signed 27-Feb-2014 Spine Lumbar (Routine) Result: Comments: See Note; NOTES: [facility] Imaging Services [address] [place] [address] MRI Report MR#: [id number] Acct: [id number] Name: MAR MAHARAJ Rep #: [id number] : 1945 F 68 From: Angus Arreola PCP: Libby Mai DO Status: REG CLI Study: Spine Lumbar (Routine) Date of Exam: 02/27/14 Exam# [id number] Ordering Dr: Jose Alejandro Yepez STUDY: MRI LUMBAR S PINE WITHOUT CONTRAST REASON FOR EXAM: Female, 68 years old. Lower back pain TECHNIQUE: Standardized fat and water weighted pulse sequences were obtained in the sagittal and axial planes. COMPARI SON: None FINDINGS: Normal lumbar lordosis. There is no substantial scoliosis. Normal conus medullaris that terminates at the L1 level L1-2: There is NO disc herniation. There is mild facet hypertrophy. There is NO spinal stenosis. There is mild RIGHT foraminal stenosis. L2-3: There is severe bilateral facet hypertrophy. There is moderate spinal stenosis and severe bilateral foraminal stenosis greater on the LEFT. L3-4: There are bilateral pedicle screws. There is significant loss of disc height. There is NO spinal stenosis or disc herniation. Ther e is mild bilateral foraminal stenosis. L4-5: There are bilateral pedicle screws. There is grade 1 anterior spondylolisthesis. There is NO disc herniation or spinal stenosis. There is moderate bila teral foraminal stenosis greater on the RIGHT. There have been bilateral laminectomies. L5-S1: There is loss of disc height and bilateral facet hypertrophy. There is mild spinal stenosis and severe bilateral foraminal stenosis. Normal visualized sacral ala. Normal visualized paraspinous soft tissue structures. IMPRESSION: There has been fusion at L3, L4 and L5. There been bilateral laminectomies at L4 and L5. There are degenerative disc changes and facet arthropathy causing spinal and foraminal stenosis as detailed above. NO acute abnormality is se en. Electronically Signed: Angus Arreola MD at 7:48 EDT , Service support [phone], CC: JOSE ALEJANDRO Mai DO Tile Molder Hand: Signed 10-Feb-2014 Cerv Spine 2 or 3 Views Result: Comments: See Note; NOTES: [facility] Imaging Services [address] [place] [address] Radiology Report MR#: [id number] Acct: [id number] Name: MAR MAHARAJ Rep #: [id number] : 1945 F 68 From: Florian Valenzuela MD PCP: Libby Mai DO Status: REG CLI Study: Cerv Spine 2 or 3 Views Date of Exam: 02/10/14 Exam# [id number] Ordering Dr: Jose Alejandro Yepez STUDY: X -RAY - CERVICAL SPINE REASON FOR EXAM: Female, 68 years old. Status post surgical fusion. TECHNIQUE: Lateral as well as flexion and extension views of the cervical spine view(s) were obtained. CO MPARISON: None FINDINGS: There are degenerative changes of the anterior atlantoaxial articulation. Normal odontoid process. There is straightening of the cat l cervical lordosis. The patient is status post anterior fusion with prosthetic disc at the C3-C4, C4-C5 and C5-C6 levels. There is multi-level degenerative disc disease with multilevel disc space na rrowing. Normal visualized intervertebral neuroforamina. No abnormal movement occurs between the vertebral segments on the flexion and extension views. The soft tissue structures are unremarkable. IMPRESSION: Status post anterior fusion at the C3-C4, C4-C5 and C5-C6 levels. No abnormal movement occurs between the vertebral segments. Electronically Signed: Florian Valenzuela MD at 15:54 EDT Tel [phone], Service support [phone], RAD/Cerv Spine 2 or 3 Views IMPRESSION: Status post anterior fu tamika at the C3-C4, C4-C5 and C5-C6 levels. No abnormal movement occurs between the vertebral segments. Electronically Signed: Florian Valenzuela MD at 15:54 EDT Tel [phone], Service support [phone], CC: JOSE ALEJANDRO YEPEZ; Libby Mai DO Tile Molder Hand: Signed 13-Jan-2014 Echocardiogram Complete Result: Comments: See Note; NOTES: [facility] Cardiovascular Services [address] [place] [address] Echo Complete 01/10/14 1155 MR#: [id number] Acct: [id number] Name: LESLY MAHARAJ Rep #: [id number] : 1945 68 From: Sergio Lawler MD Attending Dr: Sergio Lawler MD Status: REG CLI Ordering Dr: Sergio Lawler MD Date: 01/10/14 Location: [facility] Sex: F C Admitted: [facility] This was a 2D Doppler, Color Flow transthoracic echocardiogram. Exam performed in department. Left Ventricle Normal LV size. Mild concentric left ventricular hypertrophy. Left ventricular syst olic function is normal. Transmitral and pulmonary venous doppler flow suggestive of impaired relaxation of left ventricle. The estimated ejection fraction is 65 %. No regional wall motion abnormali ties noted. Right Ventricle Normal RV size. Normal systolic function. Atria Normal left atrium. Normal right atrium. Mitral Valve Normal mitral valve. Mild (1+) mitral valve insufficiency. Tr icuspid Valve Normal tricuspid valve. Mild (1+) tricuspid valve insufficiency. Pulmonary artery systolic pressure is 30 mmHg. Aortic Valve Trisinus/trileaflet aortic valve. Mild (1+) eccentric aor tic valve insufficiency. Pulmonic Valve Normal pulmonic valve. Great Vessels Normal aortic root. The pulmonary artery is normal size. Normal inferior vena cava. Pericardium/Pleural No pericar dial effusion. LVIDd: 4.1 cm IVSd: 1.2 cm Ao root diam: 3.7 cm LAV(MOD-bp): 51.1 ml LVIDs: 2.5 cm LVPWd: 1.2 cm Ao root area: 11.0 cm2 LAV(MOD-bp) Indexed: 27.9 ml/m2 RVDd: 3.3 cm FS: 39.3 % LA di mension: 3.6 cm LAV(MOD-sp2) : 48.8 ml LAV(MOD-sp4) : 51.4 ml LA A4 area: 18.8 cm2 RA A4 area: 15.3 cm2 MV E max alok: 43.1 cm/sec Lat Peak E' Alok: Med Peak E' Alok: Ao V2 max: 133.0 cm/sec MV A max alok: 76.5 cm/sec 5.2 cm/sec 3.9 cm/sec Ao max P.1 mmHg MV E/A: 0.56 AI max alok: 454.4 cm/sec LV V1 max: 132.2 cm/sec PA V2 max: 81.6 cm/sec TR max alok: AI max P.6 mmHg LV V1 max P.0 mmHg PA max P.7 mmHg 247.0 cm/ sec AI dec slope: TR max P.4 mmHg 260.0 cm/sec2 AI P1/2t: 511.9 msec E/E' lat: 8.4 E/E' med: 11.1 Interpr etation Summary Normal LV size. Mild concentric left ventricular hypertrophy. Left ventricular systolic function is normal. The estimated ejection fraction is 65 %. Mild (1+) eccentric aortic valve insufficiency. Ordering Physician: Sergio Lawler Performed By: Brenda Wolfe RDCS Electro nically signed by: Sergio Lawler MD on 01/13/2014 11:03 AM CC: Sergio Lawler MD; Libby Mai DO Date Dictated: 01/10/14 1155 Date Transcribed: 01/13/14 1103 Tile Molder Hand: Signed 20-Jun-2013 Valeri Thrasher Digital & CAD Result: Comments: See Note; NOTES: [facility] Imaging Services [address] [place] [address] Breast Imaging Report MR#: [id number] Acct: [id number] Name: MAR MAHARAJ Rep #: [id number] : 1945 F 67 From: Florian Valenzuela MD PCP: Status: REG CLI Exam# [id number] Ordering Dr: Libby Mai DO MAMMOGRAPHY - BILATERAL SCREENING REASON FOR EXAM: Female, 67 years old. Routine annual screening examination. PERTINENT HISTORY: Mother with breast cancer. TECHNIQUE: Digital examination. Mediolateral oblique (MLO) and craniocaudad (CC) views of both breasts wer e obtained. CAD: CAD was performed on this study. COMPARISON: Comparison is made with prior study dated April 30, 2012 and January 27, 2011. FINDINGS: The breast composition is composed of scattered fibroglandular tissues ranging from 25% to 50% of the breast. There are no dominant masses or suspicious calcifications. No other significant abnormalities are identified. There has been no significant change since the prior study. IMPRESSION: Stable bilateral screening mammogram. Yearly follow-up recommended. (A) ___ ASSESSMENT CATEGORY: BIRADS Category 2: Benign finding(s). A letter regarding these results will be sent to the patient by the facility within 30 days. Approximate ly 10% of breast cancers are not detected by mammography. A normal mammogram should not delay biopsy of a clinically suspicious abnormality. Signed: Florian Valenzuela M.D. June 20, 2013 at 9: 52:55 AM EDT [phone] Electronically Signed GP/GP If you are the referring physician and would like to consult with the radiologist who provided this interpretation, please contact Florian Valenzuela M.D. at [phone]. If this radiologist is unavailable, you will be directed to another radiologist to assist. If you are a patient with a question regarding this report, please contact your referring physician directly. Professional Interpretation Provided By: [employer], Phone , These documents contain legally protected and confidential health in formation intended only for the use of the individual or entity named above. If you are not the intended recipient, you are hereby notified that any disclosure, copying, distribution, or other use of these documents is strictly prohibited. If you have received this information in error, please notify the sender immediately and arrange for the return or destruction of these documents. CC: Harman Mai DO Tile Molder Hand: Signed 20-Jun-2013 Dexa Bone Density Study (HP) Result: Comments: See Note; NOTES: [facility] Imaging Services [address] [place] [address] Bone Density Report MR#: [id number] Acct: [id number] Name: MAR MAHARAJ Rep #: [id number] : 1945 F 67 From: Florian Valenzuela MD PCP: Status: [facility] Study: Dexa Bone Density Study (HP) Date of Exam: 06/20/13 Exam# [id number] Ordering Dr: Libby Mai DO STUDY: DUAL ENERGY X-RAY ABSORPTIOMETRY / DXA REASON FOR EXAM: Female, 67 years old. The patient is postmenopausal. TECHNIQUE: Bone Mineral Density (BMD) measurements of left hip and left forearm were obtained . COMPARISON: Comparison is made with prior examination dated January 26, 2010. FINDINGS: The patient is status post interpedicular screw fixation of the lower angel luis mbar spine. On the lateral tape controlled machine stitcher view, there is evidence of loss of height of the T11 vertebra. Left Femur Total: g/cm2 (1.063) / T-score (0.4) / Z-score (1.9) Left Femoral Neck: g/cm2 (1.084) / T-s core (0.3) / Z-score (2.0) Left Forearm: g/cm2 (0.728) / T-score (-1.8) / Z- score (0.0) The T-Scores on the most recent prior examination were: Left Femur Total: which represents a worsening of 1% . IMPRESSION: The patient is considered osteopenic as outlined below according to World Shoaib Organization (WHO) criteria with a moderate fracture risk. There h as been worsening of bone density since the previous examination. Reference Information: The T-score is the number of standard deviations above or below the st andard which is normal for young adults at their peak bone mineral density. The World Health Organization (WHO) interprets the T-scores as follows: Above -1 Normal bone density Between -1 and -2.5 Osteopenia Equal to / or below -2.5 Osteoporosis As a practical clinical guideline, osteopenia may be graded as follows: Mild -1 through -1.5 Moderate -1.6 through -2.0 Severe -2.1 through -2.4 The Z-score is the number of standard deviations above or below age-matched controls. A Z-score of less than -1.5 would be considered abnormal. References: 1. NIH Osteoporosis and Related Bone Disea ses http://www.osteo.org 2. International Society for Clinical Densitometry http://www.iscd.org 3. National Osteoporosis Foundation http://www.nof.org Signed: Florian Valenzuela M.D. June 20, 2013 at 10:14:39 AM EDT [phone] Electronically Signed GP/GP If you are the referring physician and would like to consult with the radiologist who provided this interpretation, please contact Florian Valenzuela M.D. at [phone]. If this radiologist is unavailable, you will be directed to another radiologist to assist. If you are a patient with a question regarding this report, plea se contact your referring physician directly. Professional Interpretation Provided By: [employer], Phone , These documents contain legally protected and confidential health information intended only for the use of the individual or entity named above. If you are not the intended recipient, you are hereby notified that any disclosure, copying, distribution, or ot her use of these documents is strictly prohibited. If you have received this information in error, please notify the sender immediately and arrange for the return or destruction of these documents. 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 Hand: Signed 06-Jun-2013 Chest without Contrast Result: Comments: See Note; NOTES: [facility] Imaging Services [address] [place] [address] CAT Scan Report MR#: [id number] Acct: [id number] Name: MAR MAHARAJ Rep #: [id number] : 1945 F 67 From: Florian Valenzuela MD PCP: Status: REG CLI Study: Chest without Contrast Date of Exam: 06/06/13 Exam# [id number] Ordering Dr: Libby Mai DO STUDY: CT CHEST WITHOU T CONTRAST REASON FOR EXAM: Female, 67 years old. Followup for lung nodule. RADIATION DOSAGE (If Supplied By Facility): CTDIvol = ( 16.55 ) mGy, DLP = ( 594.70 ) mGycm TECHNIQUE: High resolution transaxial imaging was performed without the administration of intravenous contrast material. Multiplanar coronal and sagittal images were reformatted. COMPARISON: Comparison is made with prior exam ination dated September 13, 2012. FINDINGS: Stable 4 mm noncalcified well circumscribed nodule in the peripheral aspect of the anterior segment of the right uppe r lobe. This is seen on image #40. Stable linear scarring in the medial aspect of the right middle lobe. Stable 2 mm noncalcified nodule in the peripheral aspect of the left upper lobe. There is evid ence of stable linear densities at the left lung base in keeping with left lower lobe scarring. There is no demonstrated pleural abnormality. Normal heart and pericardium. Normal mediastinum. Norm al hilar regions. Normal unenhanced pulmonary arteries. Atherosclerotic calcification. There are multi-level degenerative changes of the thoracic spine. Once again, a TENS unit is seen with the tip of the electrodes at the T7 level. There is no demonstrated abnormality of the visualized upper abdomen. IMPRESSION: There has been essentially no change since prior study. Signed: Florian Valenzuela M.D. June 06, 2013 at 10:07:38 AM EDT [phone] Electronically Signed GP/GP If you are the referring physician and would like to consult with the radiologist who provided this interpretation, please contact Florian Valenzuela M.D. at [phone]. If this radiologist is unavailable, you will be directed to another radiologist to assist. If you are a patient with a question regarding this report, please contact your referring physician directly. Professional Interpretation Provided By: [employer], Phone , These documents contain legally protected and confidential health information intended only for the use of the individual or entity named above. If you are not the intended recipient, you are hereb y notified that any disclosure, copying, distribution, or other use of these documents is strictly prohibited. If you have received this information in error, please notify the sender immediately and arrange for the return or destruction of these documents. 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 Hand: Signed 06-Jun-2013 Chest without Contrast Result: Comments: See Note; NOTES: [facility] Imaging Services [address] [place] [address] CAT Scan Report MR#: [id number] Acct: [id number] Name: MAR MAHARAJ Rep #: [id number] : [id number] F [id number] From: Florian Valenzuela MD PCP: Status: REG CLI Study: Chest without Contrast Date of Exam: 06/06/13 Exam# [id number] Ordering Dr: iLbby Mai DO STUDY: CT CHEST WITHOU T CONTRAST REASON FOR EXAM: Female, 67 years old. Followup for lung nodule. RADIATION DOSAGE (If Supplied By Facility): CTDIvol = ( 16.55 ) mGy, DLP = ( 594.70 ) mGycm TECHNIQUE: High resolution transaxial imaging was performed without the administration of intravenous contrast material. Multiplanar coronal and sagittal images were reformatted. COMPARISON: Comparison is made with prior exam ination dated September 13, 2012. FINDINGS: Stable 4 mm noncalcified well circumscribed nodule in the peripheral aspect of the anterior segment of the right uppe r lobe. This is seen on image #40. Stable linear scarring in the medial aspect of the right middle lobe. Stable 2 mm noncalcified nodule in the peripheral aspect of the left upper lobe. There is evid ence of stable linear densities at the left lung base in keeping with left lower lobe scarring. There is no demonstrated pleural abnormality. Normal heart and pericardium. Normal mediastinum. Norm al hilar regions. Normal unenhanced pulmonary arteries. Atherosclerotic calcification. There are multi-level degenerative changes of the thoracic spine. Once again, a TENS unit is seen with the tip of the electrodes at the T7 level. There is no demonstrated abnormality of the visualized upper abdomen. IMPRESSION: There has been essentially no change since prior study. Signed: Florian Valenzuela M.D. June 06, 2013 at 10:07:38 AM EDT [phone] Electronically Signed GP/GP If you are the referring physician and would like to consult with the radiologist who provided this interpretation, please contact Florian Valenzuela M.D. at [phone]. If this radiologist is unavailable, you will be directed to another radiologist to assist. If you are a patient with a question regarding this report, please contact your referring physician directly. Professional Interpretation Provided By: [employer], Phone , These documents contain legally protected and confidential health information intended only for the use of the individual or entity named above. If you are not the intended recipient, you are hereb y notified that any disclosure, copying, distribution, or other use of these documents is strictly prohibited. If you have received this information in error, please notify the sender immediately and arrange for the return or destruction of these documents. 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 Hand: Signed Immunization Name Dates Details Pneumococcal (2 years and up) on: 2016 Comments: [facility] Family History Unknown Family Member Name Dates Details Father Comments: COPD, Smoker - Status: Active Mother Comments: Breast CA, DM, HTN, Lung CA - Status: Active Social History Name Dates Details Alcohol Use Comments: Occasional alcohol use Status: Active Caffeine Use Comments: 2 QD Status: Active Current Work/Study Status Comments: Part-time, [employer] Status: Active Exercise History Comments: Light Status: Active Living Situation Comments: Lives alone Status: Active No Drug Use Status: Active Non Smoker/No Tobacco Use Comments: 04/20/11 Status: Active 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 Smoking Status Name Dates Details Never smoker Vital Signs Date Test Result Details :22 Temperature 98.7 f Comments: Method: Temporal Pulse 99 /min Comments: Pattern: Regular Respiration Rate 16 /min Comments: Pattern: Unlabored O2 SAT 97 % Comments: Room air BP Systolic 122 mm[Hg] Comments: Patient Position: Sitting; Cuff Location: Left Arm; Cuff Size: Standard BP Diastolic 84 mm[Hg] Comments: Patient Position: Sitting; Cuff Location: Left Arm; Cuff Size: Standard Weight 155.125 lb Height 63.5 in Body Mass Index Calculated 27.05 kg/m2 Body Surface Area Calculated 1.75 m2 :28 Temperature 97.4 f Comments: Method: Temporal Pulse 72 /min Comments: Pattern: Regular Respiration Rate 16 /min Comments: Pattern: Unlabored O2 SAT 97 % Comments: Room air BP Systolic 128 mm[Hg] Comments: Patient Position: Sitting; Cuff Location: Left Arm; Cuff Size: Standard BP Diastolic 74 mm[Hg] Comments: Patient Position: Sitting; Cuff Location: Left Arm; Cuff Size: Standard Weight 155.125 lb Height 63.5 in Body Mass Index Calculated 27.05 kg/m2 Body Surface Area Calculated 1.75 m2 :41 Pulse 76 /min Comments: Pattern: Regular Respiration Rate 18 /min Comments: Pattern: Unlabored O2 SAT 97 % Comments: Room air BP Systolic 148 mm[Hg] Comments: Patient Position: Sitting; Cuff Location: Left Arm; Cuff Size: Large BP Diastolic 70 mm[Hg] Comments: Patient Position: Sitting; Cuff Location: Left Arm; Cuff Size: Large Weight 155.125 lb Height 63.5 in Body Mass Index Calculated 27.05 kg/m2 Body Surface Area Calculated 1.75 m2 :52 Pulse 98 /min Comments: Pattern: Regular Respiration Rate 18 /min Comments: Pattern: Unlabored O2 SAT 95 % Comments: Room air BP Systolic 138 mm[Hg] Comments: Patient Position: Sitting; Cuff Location: Left Arm; Cuff Size: Large BP Diastolic 70 mm[Hg] Comments: Patient Position: Sitting; Cuff Location: Left Arm; Cuff Size: Large Weight 162 lb Height 63.5 in Body Mass Index Calculated 28.25 kg/m2 Body Surface Area Calculated 1.78 m2 :26 Pulse 95 /min Comments: Pattern: Regular Respiration Rate 16 /min Comments: Pattern: Unlabored O2 SAT 96 % Comments: Room air BP Systolic 153 mm[Hg] Comments: Patient Position: Sitting; Cuff Location: Left Arm; Cuff Size: Standard BP Diastolic 91 mm[Hg] Comments: Patient Position: Sitting; Cuff Location: Left Arm; Cuff Size: Standard Weight 157 lb Height 63.5 in Body Mass Index Calculated 27.37 kg/m2 Body Surface Area Calculated 1.75 m2 [id number] Temperature 97.8 f Pulse 109 /min Comments: Pattern: Regular Respiration Rate 18 /min Comments: Pattern: Unlabored O2 SAT 96 % Comments: Room air BP Systolic 162 mm[Hg] Comments: Patient Position: Sitting; Cuff Location: Left Arm; Cuff Size: Standard BP Diastolic 92 mm[Hg] Comments: Patient Position: Sitting; Cuff Location: Left Arm; Cuff Size: Standard Weight 146 lb Height 63.5 in Body Mass Index Calculated 25.46 kg/m2 Body Surface Area Calculated 1.7 m2 [id number] Temperature 97.7 f Pulse 88 /min Comments: Pattern: Regular Respiration Rate 18 /min Comments: Pattern: Unlabored O2 SAT 95 % Comments: Room air BP Systolic 142 mm[Hg] Comments: Patient Position: Sitting; Cuff Location: Left Arm; Cuff Size: Standard BP Diastolic 84 mm[Hg] Comments: Patient Position: Sitting; Cuff Location: Left Arm; Cuff Size: Standard Weight 146 lb Height 63.5 in Body Mass Index Calculated 25.46 kg/m2 Body Surface Area Calculated 1.7 m2 [id number] Pulse 78 /min Comments: Pattern: Regular Respiration Rate 18 /min Comments: Pattern: Unlabored O2 SAT 93 % Comments: Room air BP Systolic 122 mm[Hg] Comments: Patient Position: Sitting; Cuff Location: Left Arm; Cuff Size: Large BP Diastolic 80 mm[Hg] Comments: Patient Position: Sitting; Cuff Location: Left Arm; Cuff Size: Large Weight 146 lb Height 63.5 in Body Mass Index Calculated 25.46 kg/m2 Body Surface Area Calculated 1.7 m2 :03 Temperature 98.2 f Comments: Method: Temporal Pulse 72 /min Comments: Pattern: Regular Respiration Rate 16 /min Comments: Pattern: Unlabored O2 SAT 97 % Comments: Room air BP Systolic 134 mm[Hg] Comments: Patient Position: Sitting; Cuff Location: Left Arm; Cuff Size: Standard BP Diastolic 76 mm[Hg] Comments: Patient Position: Sitting; Cuff Location: Left Arm; Cuff Size: Standard Weight 146 lb Height 63.5 in Body Mass Index Calculated 25.46 kg/m2 Body Surface Area Calculated 1.7 m2 [id number] Comments: recheck after fluids Temperature 98.1 f Pulse 94 /min Comments: Pattern: Regular Respiration Rate 18 /min Comments: Pattern: Unlabored O2 SAT 96 % Comments: Room air BP Systolic 150 mm[Hg] Comments: Patient Position: Sitting; Cuff Location: Left Arm; Cuff Size: Standard BP Diastolic 80 mm[Hg] Comments: Patient Position: Sitting; Cuff Location: Left Arm; Cuff Size: Standard :26 Temperature 95.1 f Pulse 122 /min Comments: Pattern: Regular Respiration Rate 18 /min Comments: Pattern: Unlabored O2 SAT 98 % Comments: Room air BP Systolic 146 mm[Hg] Comments: Patient Position: Sitting; Cuff Location: Left Arm; Cuff Size: Standard BP Diastolic 88 mm[Hg] Comments: Patient Position: Sitting; Cuff Location: Left Arm; Cuff Size: Standard Weight 150.5 lb Height 63.5 in Body Mass Index Calculated 26.24 kg/m2 Body Surface Area Calculated 1.72 m2 :14 Weight 150.5 lb Height 63.5 in Body Mass Index Calculated 26.24 kg/m2 Body Surface Area Calculated 1.72 m2 :33 Comments: hearing wnlDrJoanne Huertas and had a glaucoma test done Pulse 84 /min Comments: Pattern: Regular Respiration Rate 18 /min Comments: Pattern: Unlabored O2 SAT 97 % Comments: Room air BP Systolic 120 mm[Hg] Comments: Patient Position: Sitting; Cuff Location: Left Arm; Cuff Size: Standard BP Diastolic 78 mm[Hg] Comments: Patient Position: Sitting; Cuff Location: Left Arm; Cuff Size: Standard Weight 150.5 lb Height 63.5 in Body Mass Index Calculated 26.24 kg/m2 Body Surface Area Calculated 1.72 m2 :27 Respiration Rate 18 /min Comments: Pattern: Unlabored O2 SAT 93 % Comments: Room air BP Systolic 136 mm[Hg] BP Diastolic 82 mm[Hg] Weight 148.4375 lb Height 63.5 in Body Mass Index Calculated 25.88 kg/m2 Body Surface Area Calculated 1.71 m2 :10 Pulse 98 /min Comments: Pattern: Regular Respiration Rate 18 /min Comments: Pattern: Unlabored O2 SAT 97 % Comments: Room air BP Systolic 136 mm[Hg] Comments: Patient Position: Sitting; Cuff Location: Right Arm; Cuff Size: Standard BP Diastolic 80 mm[Hg] Comments: Patient Position: Sitting; Cuff Location: Right Arm; Cuff Size: Standard Weight 148 lb Height 63.5 in Body Mass Index Calculated 25.81 kg/m2 Body Surface Area Calculated 1.71 m2 :44 Temperature 97.1 f Comments: Method: Temporal Pulse 80 /min Comments: Pattern: Regular Respiration Rate 16 /min Comments: Pattern: Unlabored BP Systolic 134 mm[Hg] Comments: Patient Position: Sitting; Cuff Location: Left Arm; Cuff Size: Standard BP Diastolic 78 mm[Hg] Comments: Patient Position: Sitting; Cuff Location: Left Arm; Cuff Size: Standard Weight 153 lb Height 63.5 in Body Mass Index Calculated 26.68 kg/m2 Body Surface Area Calculated 1.74 m2 :09 Pulse 100 /min Comments: Pattern: Regular Respiration Rate 16 /min Comments: Pattern: Unlabored O2 SAT 97 % Comments: Room air BP Systolic 122 mm[Hg] Comments: Patient Position: Sitting; Cuff Location: Left Arm; Cuff Size: Standard BP Diastolic 78 mm[Hg] Comments: Patient Position: Sitting; Cuff Location: Left Arm; Cuff Size: Standard Weight 151 lb Height 63.5 in Body Mass Index Calculated 26.33 kg/m2 Body Surface Area Calculated 1.73 m2 :45 Pulse 99 /min Comments: Pattern: Regular Respiration Rate 18 /min Comments: Pattern: Unlabored O2 SAT 98 % Comments: Room air BP Systolic 124 mm[Hg] Comments: Patient Position: Sitting; Cuff Location: Left Arm; Cuff Size: Large BP Diastolic 80 mm[Hg] Comments: Patient Position: Sitting; Cuff Location: Left Arm; Cuff Size: Large Weight 164 lb Height 63.5 in Body Mass Index Calculated 28.6 kg/m2 Body Surface Area Calculated 1.79 m2 :18 Pulse 88 /min Comments: Pattern: Regular Respiration Rate 18 /min Comments: Pattern: Unlabored O2 SAT 97 % Comments: Room air BP Systolic 142 mm[Hg] Comments: Patient Position: Sitting; Cuff Location: Left Arm; Cuff Size: Large BP Diastolic 80 mm[Hg] Comments: Patient Position: Sitting; Cuff Location: Left Arm; Cuff Size: Large Weight 164 lb Height 63.5 in Body Mass Index Calculated 28.6 kg/m2 Body Surface Area Calculated 1.79 m2 :13 Temperature 97.2 f Pulse 107 /min Comments: Pattern: Regular Respiration Rate 17 /min Comments: Pattern: Unlabored O2 SAT 94 % Comments: Room air BP Systolic 126 mm[Hg] Comments: Patient Position: Sitting; Cuff Location: Left Arm; Cuff Size: Standard BP Diastolic 82 mm[Hg] Comments: Patient Position: Sitting; Cuff Location: Left Arm; Cuff Size: Standard Weight 169 lb Height 63.5 in Body Mass Index Calculated 29.47 kg/m2 Body Surface Area Calculated 1.81 m2 :56 Pulse 72 /min Comments: Pattern: Regular Respiration Rate 18 /min Comments: Pattern: Unlabored O2 SAT 96 % Comments: Room air BP Systolic 142 mm[Hg] Comments: Patient Position: Sitting; Cuff Location: Left Arm; Cuff Size: Large BP Diastolic 82 mm[Hg] Comments: Patient Position: Sitting; Cuff Location: Left Arm; Cuff Size: Large Weight 164.375 lb Height 63.5 in Body Mass Index Calculated 28.66 kg/m2 Body Surface Area Calculated 1.79 m2 :11 Pulse 102 /min Comments: Pattern: Regular Respiration Rate 18 /min Comments: Pattern: Unlabored O2 SAT 93 % Comments: Room air BP Systolic 124 mm[Hg] Comments: Patient Position: Sitting; Cuff Location: Left Arm; Cuff Size: Large BP Diastolic 82 mm[Hg] Comments: Patient Position: Sitting; Cuff Location: Left Arm; Cuff Size: Large Weight 164.375 lb Height 63.5 in Body Mass Index Calculated 28.66 kg/m2 Body Surface Area Calculated 1.79 m2 :11 Temperature 97.4 f Pulse 90 /min Comments: Pattern: Regular Respiration Rate 17 /min Comments: Pattern: Unlabored O2 SAT 95 % Comments: Room air BP Systolic 130 mm[Hg] Comments: Patient Position: Sitting; Cuff Location: Left Arm; Cuff Size: Standard BP Diastolic 82 mm[Hg] Comments: Patient Position: Sitting; Cuff Location: Left Arm; Cuff Size: Standard Weight 169 lb Height 63.5 in Body Mass Index Calculated 29.47 kg/m2 Body Surface Area Calculated 1.81 m2 :38 Temperature 98.1 f Pulse 88 /min Comments: Pattern: Regular Respiration Rate 18 /min Comments: Pattern: Unlabored O2 SAT 96 % Comments: Room air BP Systolic 118 mm[Hg] Comments: Patient Position: Sitting; Cuff Location: Left Arm; Cuff Size: Standard BP Diastolic 76 mm[Hg] Comments: Patient Position: Sitting; Cuff Location: Left Arm; Cuff Size: Standard Weight 169 lb Height 63.5 in Body Mass Index Calculated 29.47 kg/m2 Body Surface Area Calculated 1.81 m2 :53 Temperature 97.7 f Pulse 85 /min Comments: Pattern: Regular Respiration Rate 16 /min Comments: Pattern: Unlabored O2 SAT 97 % Comments: Room air BP Systolic 116 mm[Hg] Comments: Patient Position: Sitting; Cuff Location: Left Arm; Cuff Size: Standard BP Diastolic 72 mm[Hg] Comments: Patient Position: Sitting; Cuff Location: Left Arm; Cuff Size: Standard Weight 174 lb Height 63.5 in Body Mass Index Calculated 30.34 kg/m2 Body Surface Area Calculated 1.83 m2 :27 Temperature 97.4 f Comments: Method: Temporal Pulse 74 /min Comments: Pattern: Regular Respiration Rate 16 /min Comments: Pattern: Unlabored BP Systolic 124 mm[Hg] Comments: Patient Position: Sitting; Cuff Location: Left Arm; Cuff Size: Standard BP Diastolic 78 mm[Hg] Comments: Patient Position: Sitting; Cuff Location: Left Arm; Cuff Size: Standard Weight 174 lb Height 63.5 in Body Mass Index Calculated 30.34 kg/m2 Body Surface Area Calculated 1.83 m2 :30 Temperature 98.1 f Comments: Method: Temporal Pulse 96 /min Comments: Pattern: Regular Respiration Rate 16 /min Comments: Pattern: Unlabored O2 SAT 97 % Comments: Room air BP Systolic 124 mm[Hg] Comments: Patient Position: Sitting; Cuff Location: Left Arm; Cuff Size: Standard BP Diastolic 72 mm[Hg] Comments: Patient Position: Sitting; Cuff Location: Left Arm; Cuff Size: Standard Weight 174 lb Height 63.5 in Body Mass Index Calculated 30.34 kg/m2 Body Surface Area Calculated 1.83 m2 :37 Temperature 97.6 f Comments: Method: Temporal Pulse 81 /min Comments: Pattern: Regular Respiration Rate 16 /min Comments: Pattern: Unlabored O2 SAT 95 % Comments: Room air BP Systolic 142 mm[Hg] Comments: Patient Position: Sitting; Cuff Location: Left Arm; Cuff Size: Standard BP Diastolic 86 mm[Hg] Comments: Patient Position: Sitting; Cuff Location: Left Arm; Cuff Size: Standard Weight 174 lb Height 63.5 in Body Mass Index Calculated 30.34 kg/m2 Body Surface Area Calculated 1.83 m2 :44 Temperature 96.5 f Comments: Method: Temporal Pulse 72 /min Comments: Pattern: Regular Respiration Rate 16 /min Comments: Pattern: Unlabored O2 SAT 98 % Comments: Room air BP Systolic 124 mm[Hg] Comments: Patient Position: Sitting; Cuff Location: Left Arm; Cuff Size: Standard BP Diastolic 80 mm[Hg] Comments: Patient Position: Sitting; Cuff Location: Left Arm; Cuff Size: Standard Weight 174 lb Height 63.5 in Body Mass Index Calculated 30.34 kg/m2 Body Surface Area Calculated 1.83 m2 :14 Pulse 80 /min Comments: Pattern: Regular Respiration Rate 18 /min Comments: Pattern: Unlabored O2 SAT 98 % Comments: Room air BP Systolic 122 mm[Hg] Comments: Patient Position: Sitting; Cuff Location: Left Arm; Cuff Size: Large BP Diastolic 78 mm[Hg] Comments: Patient Position: Sitting; Cuff Location: Left Arm; Cuff Size: Large Weight 178 lb Height 63.5 in Body Mass Index Calculated 31.04 kg/m2 Body Surface Area Calculated 1.85 m2 :04 Temperature 97.7 f Comments: Method: Oral Pulse 78 /min Comments: Pattern: Regular Respiration Rate 16 /min Comments: Pattern: Unlabored O2 SAT 98 % Comments: Room air BP Systolic 148 mm[Hg] Comments: Patient Position: Sitting; Cuff Location: Left Arm; Cuff Size: Standard BP Diastolic 80 mm[Hg] Comments: Patient Position: Sitting; Cuff Location: Left Arm; Cuff Size: Standard Weight 178 lb Height 63.5 in Body Mass Index Calculated 31.04 kg/m2 Body Surface Area Calculated 1.85 m2 :02 Temperature 97.7 f Comments: Method: Oral Pulse 88 /min Comments: Pattern: Regular Respiration Rate 17 /min Comments: Pattern: Unlabored O2 SAT 98 % Comments: Room air BP Systolic 136 mm[Hg] Comments: Patient Position: Sitting; Cuff Location: Left Arm; Cuff Size: Standard BP Diastolic 76 mm[Hg] Comments: Patient Position: Sitting; Cuff Location: Left Arm; Cuff Size: Standard Weight 174 lb Height 63.5 in Body Mass Index Calculated 30.34 kg/m2 Body Surface Area Calculated 1.83 m2 :31 Temperature 96.4 f Comments: Method: Oral Pulse 74 /min Comments: Pattern: Regular Respiration Rate 17 /min Comments: Pattern: Unlabored O2 SAT 96 % Comments: Room air BP Systolic 132 mm[Hg] Comments: Patient Position: Sitting; Cuff Location: Left Arm; Cuff Size: Standard BP Diastolic 64 mm[Hg] Comments: Patient Position: Sitting; Cuff Location: Left Arm; Cuff Size: Standard Weight 177 lb Height 63.5 in Body Mass Index Calculated 30.86 kg/m2 Body Surface Area Calculated 1.85 m2 :38 Temperature 97.8 f Comments: Method: Oral Pulse 60 /min Comments: Pattern: Regular Respiration Rate 17 /min Comments: Pattern: Unlabored BP Systolic 118 mm[Hg] Comments: Patient Position: Sitting; Cuff Location: Left Arm; Cuff Size: Standard BP Diastolic 64 mm[Hg] Comments: Patient Position: Sitting; Cuff Location: Left Arm; Cuff Size: Standard Weight 166 lb Height 63.5 in Body Mass Index Calculated 28.94 kg/m2 Body Surface Area Calculated 1.8 m2 :20 Temperature 97.5 f Comments: Method: Oral Pulse 80 /min Comments: Pattern: Regular Respiration Rate 16 /min Comments: Pattern: Unlabored BP Systolic 140 mm[Hg] Comments: Patient Position: Sitting; Cuff Location: Left Arm; Cuff Size: Standard BP Diastolic 78 mm[Hg] Comments: Patient Position: Sitting; Cuff Location: Left Arm; Cuff Size: Standard Weight 169 lb Height 63.5 in Body Mass Index Calculated 29.47 kg/m2 Body Surface Area Calculated 1.81 m2 :13 Temperature 99.3 f Pulse 80 /min Comments: Pattern: Regular Respiration Rate 16 /min Comments: Pattern: Unlabored BP Systolic 120 mm[Hg] Comments: Patient Position: Sitting; Cuff Location: Left Arm; Cuff Size: Standard BP Diastolic 68 mm[Hg] Comments: Patient Position: Sitting; Cuff Location: Left Arm; Cuff Size: Standard Weight 162 lb Height 63.5 in Body Mass Index Calculated 28.25 kg/m2 Body Surface Area Calculated 1.78 m2 :07 Temperature 98.1 f Pulse 88 /min Comments: Pattern: Regular Respiration Rate 16 /min Comments: Pattern: Unlabored BP Systolic 108 mm[Hg] Comments: Patient Position: Sitting; Cuff Location: Left Arm; Cuff Size: Standard BP Diastolic 80 mm[Hg] Comments: Patient Position: Sitting; Cuff Location: Left Arm; Cuff Size: Standard Weight 163 lb Height 63.5 in Body Mass Index Calculated 28.42 kg/m2 Body Surface Area Calculated 1.78 m2 :11 Temperature 98.4 f Pulse 88 /min Comments: Pattern: Regular Respiration Rate 16 /min Comments: Pattern: Unlabored BP Systolic 120 mm[Hg] Comments: Patient Position: Sitting; Cuff Location: Left Arm; Cuff Size: Large BP Diastolic 72 mm[Hg] Comments: Patient Position: Sitting; Cuff Location: Left Arm; Cuff Size: Large Weight 173 lb Height 63.5 in Body Mass Index Calculated 30.16 kg/m2 Body Surface Area Calculated 1.83 m2 :36 Temperature 98.6 f Comments: Method: Oral Pulse 88 /min Comments: Pattern: Regular Respiration Rate 16 /min O2 SAT 96 % Comments: Room air BP Systolic 148 mm[Hg] Comments: Patient Position: Sitting; Cuff Location: Left Arm; Cuff Size: Standard BP Diastolic 80 mm[Hg] Comments: Patient Position: Sitting; Cuff Location: Left Arm; Cuff Size: Standard Weight 171 lb Height 63.5 in Body Mass Index Calculated 29.82 kg/m2 Body Surface Area Calculated 1.82 m2 :14 Temperature 97.5 f Pulse 92 /min Comments: Pattern: Regular Respiration Rate 16 /min Comments: Pattern: Unlabored BP Systolic 128 mm[Hg] Comments: Patient Position: Sitting; Cuff Location: Left Arm; Cuff Size: Standard BP Diastolic 74 mm[Hg] Comments: Patient Position: Sitting; Cuff Location: Left Arm; Cuff Size: Standard Weight 171 lb Height 63.5 in Body Mass Index Calculated 29.82 kg/m2 Body Surface Area Calculated 1.82 m2 :34 Temperature 98.2 f Pulse 64 /min Comments: Pattern: Regular Respiration Rate 16 /min Comments: Pattern: Unlabored BP Systolic 120 mm[Hg] Comments: Patient Position: Sitting; Cuff Location: Left Arm; Cuff Size: Large BP Diastolic 60 mm[Hg] Comments: Patient Position: Sitting; Cuff Location: Left Arm; Cuff Size: Large Weight 171 lb Height 63.5 in Body Mass Index Calculated 29.82 kg/m2 Body Surface Area Calculated 1.82 m2 :15 Temperature 98.6 f Pulse 68 /min Comments: Pattern: Regular Respiration Rate 16 /min Comments: Pattern: Unlabored BP Systolic 108 mm[Hg] Comments: Patient Position: Sitting; Cuff Location: Left Arm; Cuff Size: Standard BP Diastolic 54 mm[Hg] Comments: Patient Position: Sitting; Cuff Location: Left Arm; Cuff Size: Standard Weight 169 lb Height 63.5 in Body Mass Index Calculated 29.47 kg/m2 Body Surface Area Calculated 1.81 m2 :23 Temperature 98.2 f Pulse 104 /min Comments: Pattern: Regular Respiration Rate 16 /min Comments: Pattern: Unlabored BP Systolic 116 mm[Hg] Comments: Patient Position: Sitting; Cuff Location: Left Arm; Cuff Size: Large BP Diastolic 70 mm[Hg] Comments: Patient Position: Sitting; Cuff Location: Left Arm; Cuff Size: Large Weight 165 lb Height 63.5 in Body Mass Index Calculated 28.77 kg/m2 Body Surface Area Calculated 1.79 m2 :28 Temperature 98.1 f Pulse 72 /min Comments: Pattern: Regular Respiration Rate 16 /min Comments: Pattern: Unlabored BP Systolic 140 mm[Hg] Comments: Patient Position: Sitting; Cuff Location: Left Arm; Cuff Size: Standard BP Diastolic 82 mm[Hg] Comments: Patient Position: Sitting; Cuff Location: Left Arm; Cuff Size: Standard Weight 176 lb Height 63.5 in Body Mass Index Calculated 30.69 kg/m2 Body Surface Area Calculated 1.84 m2 :44 Temperature 97.8 f Pulse 64 /min Comments: Pattern: Regular Respiration Rate 18 /min Comments: Pattern: Unlabored BP Systolic 116 mm[Hg] Comments: Patient Position: Sitting; Cuff Location: Left Arm; Cuff Size: Large BP Diastolic 80 mm[Hg] Comments: Patient Position: Sitting; Cuff Location: Left Arm; Cuff Size: Large Weight 173 lb Height 63.5 in Body Mass Index Calculated 30.16 kg/m2 Body Surface Area Calculated 1.83 m2 :34 BP Systolic 130 mm[Hg] Comments: Patient Position: Supine; Cuff Location: Right Arm; Cuff Size: Standard BP Diastolic 80 mm[Hg] Comments: Patient Position: Supine; Cuff Location: Right Arm; Cuff Size: Standard :56 Temperature 98 f Comments: Method: Oral Pulse 66 /min Comments: Pattern: Regular Respiration Rate 17 /min O2 SAT 97 % Comments: Room air :00 Temperature 98.7 f Comments: Method: Oral Pulse 78 /min Comments: Pattern: Regular Respiration Rate 16 /min O2 SAT 96 % Comments: Room air BP Systolic 122 mm[Hg] Comments: Patient Position: Sitting; Cuff Location: Left Arm; Cuff Size: Standard BP Diastolic 72 mm[Hg] Comments: Patient Position: Sitting; Cuff Location: Left Arm; Cuff Size: Standard Weight 173 lb Height 63.5 in Body Mass Index Calculated 30.16 kg/m2 Body Surface Area Calculated 1.83 m2 :08 Pulse 68 /min Comments: Pattern: Regular Respiration Rate 16 /min Comments: Pattern: Unlabored BP Systolic 120 mm[Hg] Comments: Patient Position: Sitting; Cuff Location: Left Arm; Cuff Size: Standard BP Diastolic 68 mm[Hg] Comments: Patient Position: Sitting; Cuff Location: Left Arm; Cuff Size: Standard Weight 173 lb Height 63.5 in Body Mass Index Calculated 30.16 kg/m2 Body Surface Area Calculated 1.83 m2 :38 BP Systolic 140 mm[Hg] Comments: Patient Position: Sitting BP Diastolic 70 mm[Hg] Comments: Patient Position: Sitting :42 Temperature 97.2 f Pulse 62 /min Comments: Pattern: Regular Respiration Rate 16 /min Comments: Pattern: Unlabored BP Systolic 144 mm[Hg] Comments: Patient Position: Sitting; Cuff Location: Left Arm; Cuff Size: Large BP Diastolic 86 mm[Hg] Comments: Patient Position: Sitting; Cuff Location: Left Arm; Cuff Size: Large Weight 174 lb Height 63.5 in Body Mass Index Calculated 30.34 kg/m2 Body Surface Area Calculated 1.83 m2 :15 Temperature 98.1 f Pulse 68 /min Comments: Pattern: Regular Respiration Rate 18 /min Comments: Pattern: Unlabored BP Systolic 142 mm[Hg] Comments: Patient Position: Sitting; Cuff Location: Left Arm; Cuff Size: Large BP Diastolic 82 mm[Hg] Comments: Patient Position: Sitting; Cuff Location: Left Arm; Cuff Size: Large Weight 171 lb Height 63.5 in Body Mass Index Calculated 29.82 kg/m2 Body Surface Area Calculated 1.82 m2 :12 Pulse 68 /min Comments: Pattern: Regular Respiration Rate 18 /min Comments: Pattern: Unlabored BP Systolic 118 mm[Hg] Comments: Patient Position: Sitting; Cuff Location: Left Arm; Cuff Size: Standard BP Diastolic 72 mm[Hg] Comments: Patient Position: Sitting; Cuff Location: Left Arm; Cuff Size: Standard Weight 170.375 lb Height 63.5 in Body Mass Index Calculated 29.71 kg/m2 Body Surface Area Calculated 1.82 m2 :08 Temperature 98.1 f Comments: Method: Oral Pulse 80 /min Comments: Pattern: Regular Respiration Rate 20 /min Comments: Pattern: Unlabored BP Systolic 130 mm[Hg] Comments: Patient Position: Sitting; Cuff Location: Left Arm; Cuff Size: Large BP Diastolic 70 mm[Hg] Comments: Patient Position: Sitting; Cuff Location: Left Arm; Cuff Size: Large Weight 170.375 lb Height 63.5 in Body Mass Index Calculated 29.71 kg/m2 Body Surface Area Calculated 1.82 m2 :16 Temperature 98.3 f Comments: Method: Oral Pulse 68 /min Comments: Pattern: Regular Respiration Rate 18 /min Comments: Pattern: Unlabored BP Systolic 138 mm[Hg] Comments: Patient Position: Sitting; Cuff Location: Left Arm; Cuff Size: Large BP Diastolic 78 mm[Hg] Comments: Patient Position: Sitting; Cuff Location: Left Arm; Cuff Size: Large Weight 169.5625 lb Height 63.5 in Body Mass Index Calculated 29.57 kg/m2 Body Surface Area Calculated 1.81 m2 :34 Temperature 96.8 f Pulse 64 /min Comments: Pattern: Regular Respiration Rate 16 /min Comments: Pattern: Unlabored BP Systolic 140 mm[Hg] Comments: Patient Position: Sitting; Cuff Location: Left Arm; Cuff Size: Large BP Diastolic 82 mm[Hg] Comments: Patient Position: Sitting; Cuff Location: Left Arm; Cuff Size: Large Weight 171 lb Height 63.5 in Body Mass Index Calculated 29.82 kg/m2 Body Surface Area Calculated 1.82 m2 :18 Temperature 97.6 f Comments: Method: Oral Pulse 72 /min Comments: Pattern: Regular Respiration Rate 20 /min Comments: Pattern: Unlabored BP Systolic 140 mm[Hg] Comments: Patient Position: Sitting; Cuff Location: Left Arm; Cuff Size: Standard BP Diastolic 82 mm[Hg] Comments: Patient Position: Sitting; Cuff Location: Left Arm; Cuff Size: Standard Weight 171.375 lb Height 63.5 in Body Mass Index Calculated 29.88 kg/m2 Body Surface Area Calculated 1.82 m2 :39 Temperature 96.5 f Comments: Method: Oral Pulse 68 /min Comments: Pattern: Regular Respiration Rate 16 /min Comments: Pattern: Unlabored BP Systolic 128 mm[Hg] Comments: Patient Position: Sitting; Cuff Location: Left Arm; Cuff Size: Standard BP Diastolic 74 mm[Hg] Comments: Patient Position: Sitting; Cuff Location: Left Arm; Cuff Size: Standard Weight 171 lb Height 63.5 in Body Mass Index Calculated 29.82 kg/m2 Body Surface Area Calculated 1.82 m2 :21 Pulse 64 /min Comments: Pattern: Regular Respiration Rate 16 /min Comments: Pattern: Unlabored BP Systolic 130 mm[Hg] Comments: Patient Position: Sitting; Cuff Location: Left Arm; Cuff Size: Large BP Diastolic 72 mm[Hg] Comments: Patient Position: Sitting; Cuff Location: Left Arm; Cuff Size: Large Weight 166 lb Height 63.5 in Body Mass Index Calculated 28.94 kg/m2 Body Surface Area Calculated 1.8 m2 :19 Temperature 98 f Pulse 76 /min Comments: Pattern: Regular Respiration Rate 16 /min Comments: Pattern: Unlabored BP Systolic 132 mm[Hg] Comments: Patient Position: Sitting; Cuff Location: Left Arm; Cuff Size: Large BP Diastolic 80 mm[Hg] Comments: Patient Position: Sitting; Cuff Location: Left Arm; Cuff Size: Large Weight 164 lb Height 63.5 in Body Mass Index Calculated 28.6 kg/m2 Body Surface Area Calculated 1.79 m2 :19 Temperature 97.5 f Pulse 80 /min Comments: Pattern: Regular Respiration Rate 16 /min Comments: Pattern: Unlabored BP Systolic 110 mm[Hg] Comments: Patient Position: Sitting; Cuff Location: Left Arm; Cuff Size: Large BP Diastolic 62 mm[Hg] Comments: Patient Position: Sitting; Cuff Location: Left Arm; Cuff Size: Large Weight 164 lb Height 63.5 in Body Mass Index Calculated 28.6 kg/m2 Body Surface Area Calculated 1.79 m2 :43 Temperature 97.2 f Pulse 88 /min Comments: Pattern: Regular Respiration Rate 18 /min Comments: Pattern: Unlabored BP Systolic 104 mm[Hg] Comments: Patient Position: Sitting; Cuff Location: Left Arm; Cuff Size: Large BP Diastolic 64 mm[Hg] Comments: Patient Position: Sitting; Cuff Location: Left Arm; Cuff Size: Large Weight 167 lb Height 63.5 in Body Mass Index Calculated 29.12 kg/m2 Body Surface Area Calculated 1.8 m2 :34 Temperature 97.6 f Pulse 68 /min Comments: Pattern: Regular Respiration Rate 16 /min Comments: Pattern: Unlabored BP Systolic 110 mm[Hg] Comments: Patient Position: Sitting; Cuff Location: Left Arm; Cuff Size: Large BP Diastolic 70 mm[Hg] Comments: Patient Position: Sitting; Cuff Location: Left Arm; Cuff Size: Large Weight 168 lb Height 63.5 in Body Mass Index Calculated 29.29 kg/m2 Body Surface Area Calculated 1.81 m2 :04 Temperature 97.7 f Pulse 72 /min Comments: Pattern: Regular Respiration Rate 16 /min Comments: Pattern: Unlabored O2 SAT 97 % Comments: Room air BP Systolic 96 mm[Hg] Comments: Patient Position: Sitting; Cuff Location: Left Arm; Cuff Size: Large BP Diastolic 52 mm[Hg] Comments: Patient Position: Sitting; Cuff Location: Left Arm; Cuff Size: Large Weight 165 lb Height 63.5 in Body Mass Index Calculated 28.77 kg/m2 Body Surface Area Calculated 1.79 m2 :48 Temperature 97.3 f Pulse 72 /min Comments: Pattern: Regular Respiration Rate 16 /min Comments: Pattern: Unlabored BP Systolic 126 mm[Hg] Comments: Patient Position: Sitting; Cuff Location: Left Arm; Cuff Size: Large BP Diastolic 76 mm[Hg] Comments: Patient Position: Sitting; Cuff Location: Left Arm; Cuff Size: Large Weight 179 lb Height 63.5 in Body Mass Index Calculated 31.21 kg/m2 Body Surface Area Calculated 1.86 m2 :05 Temperature 97.9 f Comments: Method: Oral Pulse 80 /min Comments: Pattern: Regular Respiration Rate 17 /min Comments: Pattern: Unlabored BP Systolic 138 mm[Hg] Comments: Patient Position: Sitting; Cuff Location: Left Arm; Cuff Size: Standard BP Diastolic 84 mm[Hg] Comments: Patient Position: Sitting; Cuff Location: Left Arm; Cuff Size: Standard Weight 179 lb :40 Temperature 98 f Pulse 60 /min Comments: Pattern: Regular Respiration Rate 18 /min Comments: Pattern: Unlabored BP Systolic 120 mm[Hg] Comments: Patient Position: Sitting; Cuff Location: Left Arm; Cuff Size: Standard BP Diastolic 64 mm[Hg] Comments: Patient Position: Sitting; Cuff Location: Left Arm; Cuff Size: Standard Weight 177 lb :29 Temperature 96.8 f Comments: Method: Oral Pulse 64 /min Comments: Pattern: Regular Respiration Rate 18 /min Comments: Pattern: Unlabored BP Systolic 122 mm[Hg] Comments: Patient Position: Sitting; Cuff Location: Left Arm; Cuff Size: Standard BP Diastolic 80 mm[Hg] Comments: Patient Position: Sitting; Cuff Location: Left Arm; Cuff Size: Standard :55 Temperature 97.7 f Pulse 72 /min Comments: Pattern: Regular Respiration Rate 18 /min Comments: Pattern: Unlabored BP Systolic 124 mm[Hg] Comments: Patient Position: Sitting; Cuff Location: Left Arm; Cuff Size: Standard BP Diastolic 80 mm[Hg] Comments: Patient Position: Sitting; Cuff Location: Left Arm; Cuff Size: Standard Weight 175 lb :26 Temperature 97.7 f Pulse 84 /min Comments: Pattern: Regular Respiration Rate 18 /min Comments: Pattern: Unlabored BP Systolic 140 mm[Hg] Comments: Patient Position: Sitting; Cuff Location: Left Arm; Cuff Size: Large BP Diastolic 76 mm[Hg] Comments: Patient Position: Sitting; Cuff Location: Left Arm; Cuff Size: Large Weight 169 lb :15 Pulse 58 /min Comments: Pattern: Regular Respiration Rate 16 /min Comments: Pattern: Unlabored BP Systolic 110 mm[Hg] Comments: Patient Position: Sitting; Cuff Location: Left Arm; Cuff Size: Standard BP Diastolic 70 mm[Hg] Comments: Patient Position: Sitting; Cuff Location: Left Arm; Cuff Size: Standard Weight 172.3125 lb :07 Temperature 97 f Comments: Method: Oral Pulse 70 /min Comments: Pattern: Regular Respiration Rate 16 /min Comments: Pattern: Unlabored BP Systolic 134 mm[Hg] Comments: Patient Position: Sitting; Cuff Location: Left Arm; Cuff Size: Standard BP Diastolic 70 mm[Hg] Comments: Patient Position: Sitting; Cuff Location: Left Arm; Cuff Size: Standard Weight 171.375 lb :36 Temperature 97.9 f Pulse 68 /min Comments: Pattern: Regular Respiration Rate 16 /min Comments: Pattern: Unlabored BP Systolic 130 mm[Hg] Comments: Patient Position: Sitting; Cuff Location: Left Arm; Cuff Size: Standard BP Diastolic 84 mm[Hg] Comments: Patient Position: Sitting; Cuff Location: Left Arm; Cuff Size: Standard Weight 169 lb Height 64 in Body Mass Index Calculated 29.01 kg/m2 Body Surface Area Calculated 1.82 m2 :03 Temperature 97.8 f Comments: Method: Oral Pulse 74 /min Comments: Pattern: Regular Respiration Rate 17 /min Comments: Pattern: Unlabored BP Systolic 122 mm[Hg] Comments: Patient Position: Sitting; Cuff Location: Left Arm; Cuff Size: Standard BP Diastolic 76 mm[Hg] Comments: Patient Position: Sitting; Cuff Location: Left Arm; Cuff Size: Standard Weight 166 lb :05 Temperature 95.8 f Pulse 64 /min Comments: Pattern: Regular Respiration Rate 18 /min Comments: Pattern: Unlabored BP Systolic 130 mm[Hg] Comments: Patient Position: Sitting; Cuff Location: Left Arm; Cuff Size: Standard BP Diastolic 72 mm[Hg] Comments: Patient Position: Sitting; Cuff Location: Left Arm; Cuff Size: Standard Weight 166 lb :58 Temperature 98 f Pulse 84 /min Comments: Pattern: Regular Respiration Rate 18 /min Comments: Pattern: Unlabored BP Systolic 152 mm[Hg] Comments: Patient Position: Sitting; Cuff Location: Left Arm; Cuff Size: Standard BP Diastolic 84 mm[Hg] Comments: Patient Position: Sitting; Cuff Location: Left Arm; Cuff Size: Standard Weight 172 lb :38 Temperature 95.5 f Comments: Method: Undefined Pulse 68 /min Comments: Pattern: Regular Respiration Rate 18 /min Comments: Pattern: Undefined BP Systolic 120 mm[Hg] Comments: Patient Position: Sitting; Cuff Location: Left Arm; Cuff Size: Large BP Diastolic 68 mm[Hg] Comments: Patient Position: Sitting; Cuff Location: Left Arm; Cuff Size: Large Weight 170 lb Height 0 in Head Circumference 0.00 cm :38 Temperature 97.9 f Comments: Method: Undefined Pulse 76 /min Comments: Pattern: Regular Respiration Rate 16 /min Comments: Pattern: Undefined BP Systolic 102 mm[Hg] Comments: Patient Position: Sitting; Cuff Location: Right Arm; Cuff Size: Standard BP Diastolic 62 mm[Hg] Comments: Patient Position: Sitting; Cuff Location: Right Arm; Cuff Size: Standard Weight 0 lb Height 0 in Head Circumference 0.00 cm :29 Temperature 97.8 f Comments: Method: Undefined Pulse 72 /min Comments: Pattern: Regular Respiration Rate 18 /min Comments: Pattern: Undefined BP Systolic 162 mm[Hg] Comments: Patient Position: Sitting; Cuff Location: Right Arm; Cuff Size: Standard BP Diastolic 84 mm[Hg] Comments: Patient Position: Sitting; Cuff Location: Right Arm; Cuff Size: Standard Weight 177 lb Height 0 in Head Circumference 0.00 cm :51 Temperature 97.5 f Comments: Method: Undefined Pulse 68 /min Comments: Pattern: Regular Respiration Rate 16 /min Comments: Pattern: Undefined BP Systolic 140 mm[Hg] Comments: Patient Position: Sitting; Cuff Location: Left Arm; Cuff Size: Large BP Diastolic 90 mm[Hg] Comments: Patient Position: Sitting; Cuff Location: Left Arm; Cuff Size: Large Weight 179 lb Height 64 in Body Mass Index Calculated 30.72 kg/m2 Body Surface Area Calculated 1.87 m2 Head Circumference 0.00 cm :47 Temperature 98.9 f Comments: Method: Oral Pulse 88 /min Comments: Pattern: Regular Respiration Rate 20 /min Comments: Pattern: Unlabored BP Systolic 144 mm[Hg] Comments: Patient Position: Sitting; Cuff Location: Left Arm; Cuff Size: Large BP Diastolic 86 mm[Hg] Comments: Patient Position: Sitting; Cuff Location: Left Arm; Cuff Size: Large Weight 176 lb Height 65 in Body Mass Index Calculated 29.29 kg/m2 Body Surface Area Calculated 1.87 m2 Head Circumference 0.00 cm :21 Temperature 96.8 f Comments: Method: Undefined Pulse 84 /min Comments: Pattern: Regular Respiration Rate 16 /min Comments: Pattern: Undefined BP Systolic 142 mm[Hg] Comments: Patient Position: Sitting; Cuff Location: Right Arm; Cuff Size: Large BP Diastolic 90 mm[Hg] Comments: Patient Position: Sitting; Cuff Location: Right Arm; Cuff Size: Large Weight 176 lb Height 0 in Head Circumference 0.00 cm :23 Temperature 97.3 f Comments: Method: Undefined Pulse 72 /min Comments: Pattern: Regular Respiration Rate 18 /min Comments: Pattern: Undefined BP Systolic 146 mm[Hg] Comments: Patient Position: Sitting; Cuff Location: Right Arm; Cuff Size: Standard BP Diastolic 76 mm[Hg] Comments: Patient Position: Sitting; Cuff Location: Right Arm; Cuff Size: Standard Weight 170 lb Height 0 in Head Circumference 0.00 cm :54 Temperature 97.3 f Comments: Method: Undefined Pulse 80 /min Comments: Pattern: Regular Respiration Rate 18 /min Comments: Pattern: Undefined BP Systolic 130 mm[Hg] Comments: Patient Position: Sitting; Cuff Location: Right Arm; Cuff Size: Standard BP Diastolic 70 mm[Hg] Comments: Patient Position: Sitting; Cuff Location: Right Arm; Cuff Size: Standard Weight 0 lb Height 0 in Head Circumference 0.00 cm :21 BP Systolic 150 mm[Hg] Comments: Patient Position: Sitting; Cuff Location: Undefined; Cuff Size: Undefined BP Diastolic 86 mm[Hg] Comments: Patient Position: Sitting; Cuff Location: Undefined; Cuff Size: Undefined Weight 0 lb Height 0 in Head Circumference 0.00 cm :43 Temperature 96.3 f Comments: Method: Undefined Pulse 72 /min Comments: Pattern: Regular Respiration Rate 18 /min Comments: Pattern: Undefined BP Systolic 160 mm[Hg] Comments: Patient Position: Sitting; Cuff Location: Left Arm; Cuff Size: Large BP Diastolic 82 mm[Hg] Comments: Patient Position: Sitting; Cuff Location: Left Arm; Cuff Size: Large Weight 175 lb Height 0 in Head Circumference 0.00 cm :25 Temperature 97.2 f Comments: Method: Oral Pulse 64 /min Comments: Pattern: Regular Respiration Rate 18 /min Comments: Pattern: Unlabored BP Systolic 128 mm[Hg] Comments: Patient Position: Sitting; Cuff Location: Left Arm; Cuff Size: Large BP Diastolic 68 mm[Hg] Comments: Patient Position: Sitting; Cuff Location: Left Arm; Cuff Size: Large Weight 178.3125 lb Height 65 in Body Mass Index Calculated 29.67 kg/m2 Body Surface Area Calculated 1.88 m2 Head Circumference 0.00 cm :30 Temperature 97.9 f Comments: Method: Oral Pulse 60 /min Comments: Pattern: Regular Respiration Rate 18 /min Comments: Pattern: Unlabored BP Systolic 150 mm[Hg] Comments: Patient Position: Sitting; Cuff Location: Left Arm; Cuff Size: Large BP Diastolic 88 mm[Hg] Comments: Patient Position: Sitting; Cuff Location: Left Arm; Cuff Size: Large Weight 0 lb Height 0 in Head Circumference 0.00 cm :17 Temperature 97.6 f Comments: Method: Oral Pulse 64 /min Comments: Pattern: Regular Respiration Rate 16 /min Comments: Pattern: Unlabored BP Systolic 180 mm[Hg] Comments: Patient Position: Sitting; Cuff Location: Left Arm; Cuff Size: Standard BP Diastolic 90 mm[Hg] Comments: Patient Position: Sitting; Cuff Location: Left Arm; Cuff Size: Standard Weight 0 lb Height 0 in Head Circumference 0.00 cm :19 Temperature 98.7 f Comments: Method: Oral Pulse 68 /min Comments: Pattern: Regular Respiration Rate 16 /min Comments: Pattern: Unlabored BP Systolic 120 mm[Hg] Comments: Patient Position: Sitting; Cuff Location: Right Arm; Cuff Size: Standard BP Diastolic 60 mm[Hg] Comments: Patient Position: Sitting; Cuff Location: Right Arm; Cuff Size: Standard Weight 187 lb Height 0 in Head Circumference 0.00 cm :11 Temperature 97.9 f Comments: Method: Oral Pulse 64 /min Comments: Pattern: Regular Respiration Rate 16 /min Comments: Pattern: Unlabored BP Systolic 136 mm[Hg] Comments: Patient Position: Sitting; Cuff Location: Left Arm; Cuff Size: Standard BP Diastolic 84 mm[Hg] Comments: Patient Position: Sitting; Cuff Location: Left Arm; Cuff Size: Standard Weight 178 lb Height 0 in Head Circumference 0.00 cm :39 Temperature 97.9 f Comments: Method: Oral Pulse 52 /min Comments: Pattern: Regular Respiration Rate 16 /min Comments: Pattern: Unlabored BP Systolic 162 mm[Hg] Comments: Patient Position: Sitting; Cuff Location: Left Arm; Cuff Size: Standard BP Diastolic 72 mm[Hg] Comments: Patient Position: Sitting; Cuff Location: Left Arm; Cuff Size: Standard Weight 175 lb Height 0 in Head Circumference 0.00 cm :24 Temperature 98.1 f Comments: Method: Oral Pulse 60 /min Comments: Pattern: Regular Respiration Rate 16 /min Comments: Pattern: Unlabored BP Systolic 136 mm[Hg] Comments: Patient Position: Sitting; Cuff Location: Left Arm; Cuff Size: Standard BP Diastolic 80 mm[Hg] Comments: Patient Position: Sitting; Cuff Location: Left Arm; Cuff Size: Standard Weight 0 lb Height 0 in Head Circumference 0.00 cm :42 Temperature 97.7 f Comments: Method: Oral Pulse 74 /min Comments: Pattern: Regular Respiration Rate 20 /min Comments: Pattern: Unlabored BP Systolic 122 mm[Hg] Comments: Patient Position: Sitting; Cuff Location: Left Arm; Cuff Size: Standard BP Diastolic 80 mm[Hg] Comments: Patient Position: Sitting; Cuff Location: Left Arm; Cuff Size: Standard Weight 170 lb Height 0 in Head Circumference 0.00 cm :12 Temperature 97.5 f Comments: Method: Oral Pulse 84 /min Comments: Pattern: Regular Respiration Rate 16 /min Comments: Pattern: Unlabored BP Systolic 138 mm[Hg] Comments: Patient Position: Sitting; Cuff Location: Left Arm; Cuff Size: Standard BP Diastolic 70 mm[Hg] Comments: Patient Position: Sitting; Cuff Location: Left Arm; Cuff Size: Standard Weight 179.1875 lb Height 64.5 in Body Mass Index Calculated 30.28 kg/m2 Body Surface Area Calculated 1.88 m2 Head Circumference 0.00 cm :56 Temperature 97.4 f Comments: Method: Oral Pulse 68 /min Comments: Pattern: Regular Respiration Rate 16 /min Comments: Pattern: Unlabored BP Systolic 136 mm[Hg] Comments: Patient Position: Sitting; Cuff Location: Left Arm; Cuff Size: Large BP Diastolic 78 mm[Hg] Comments: Patient Position: Sitting; Cuff Location: Left Arm; Cuff Size: Large Weight 172.5 lb Height 64.5 in Body Mass Index Calculated 29.15 kg/m2 Body Surface Area Calculated 1.85 m2 Head Circumference 0.00 cm Results Date Description Value Details [id number] CBC W/Diff, Automated Comments: [facility] [id number] [place], [address] Absolute Lymph 1.24 {X10_3/ul} (Normal) Range: 0.83-4.51 Absolute Neut 4.8 {X10_3/uL} (Normal) Range: 2.0-7.7 IM GRAN % 0.500 % (Normal) Range: 0.0-0.9 Comments: IG% - Immature Granulocytes (promyelocytes, myelocytes andmetamyelocytes) > 1% indicates that a LEFT SHIFT is Present. BASO% 0.3 % (Normal) Range: 0-1 EO% 0.6 % (Normal) Range: 0-5 MONO% 6.9 % (Normal) Range: 0-10 LY% 18.9 % (Abnormal) Range: 19-41 NEUT% 72.8 % (Abnormal) Range: 47-70 MPV 9.9 fL (Normal) Range: 6.2-12.0 PLT 303 K/mm3 (Normal) Range: 150-450 RDW SD 51.8 fL (Abnormal) Range: 35.1-43.9 RDW CV 14.3 % (Normal) Range: 11.6-14.6 MCHC 33.1 {g/gl} (Normal) Range: 32-36 MCH 33.5 pg (Abnormal) Range: 27.0-32.0 MCV 101.2 fL (Abnormal) Range: 81-99 HCT 41.1 % (Normal) Range: 37-47 HGB 13.6 g/dL (Normal) Range: 12.0-15.0 RBC 4.06 {M/mm3} (Abnormal) Range: 4.2-5.4 WBC 6.6 K/mm3 (Normal) Range: 4.4-11.0 [id number] Comprehensive Metabolic Profil Comments: [facility] [id number] [place], [address] GAP 11 (Normal) Range: 5-15 CO2 28.0 mmol/L (Normal) Range: 21.0-32.0 CL 100 mmol/L (Normal) Range: 98-107 K 3.7 mmol/L (Normal) Range: 3.5-5.1 NA 139 mmol/L (Normal) Range: 136-145 T BILI 0.40 mg/dL (Normal) Range: 0.20-1.00 ALT 22 U/L (Normal) Range: 13-56 ALK P 74 U/L (Normal) Range: 45-117 AST 14 U/L (Abnormal) Range: 15-37 CA 9.1 mg/dL (Normal) Range: 8.5-10.1 A/G 1.2 {RATIO} (Normal) Range: 0.9-2.4 GLOB 3.2 g/dL (Normal) Range: 2.2-4.2 ALB 3.8 g/dL (Normal) Range: 3.2-5.0 T PROT 7.0 g/dL (Normal) Range: 6.4-8.2 BUN/CRE 29.2 {RATIO} (Abnormal) Range: 10-20 EST GFR - AA 91 mL/min (Normal) Comments: GFR Calc EST GFR 76 mL/min (Normal) Comments: Non- GFR Calc CREAT,SERUM 0.79 mg/dL (Normal) Range: 0.55-1.02 Comments: The validity of the calculated GFR AND GFRAA in patients over70 years has not been determined. Clinical correlation isessential. BUN 23 mg/dL (Abnormal) Range: 7-18 GLU 153 mg/dL (Abnormal) Range: 74-106 Comments: Fasting Glucose result greater than or equal to 126 mg/dLsuggests DIABETES MELLITUS per A.D.A. criteria.Please note revised GLUCOSE reference range sjsnfbiky67/02/2018. :32 HgA1C , Office (25896) HgA1C , Office 6.3 % (Normal) Range: 4.6 - 7.1 :32 Blood Glucose , Office (13448) Blood Glucose , Office 133 (Normal) :16 Miscellaneous Lab Procedure Comments: Comments: [id number]; URINE TOX; RUN LOWEST TEST IN [facility] Ordered: [id number]; URINE TOX; RUN LOWEST TEST IN [facility] [address] [place], [address] [facility] [place] Comments: [id number] 6+OXYCODONE-BUND (ng/mL)DRUG RESULT SCREEN CUTOFF____ Amphetamines,Urine Negat LAB (Normal) ananth ng/mL 1000Amphetamine test includes Amphetamine and Methamphetamine.Barbiturates Negative ng/mL 200Benzodiazepines Negative ng/mL 200Cannabinoid TEST Negative ng/mL 20Cocaine (Metab) Negative ng/mL 300Opiates Negative ng/mL 300 Opiates test includes Codeine, Morphine, Hydromorphone, [place] codone.Oxycodone/Oxymorphone,Urine Negative ng/mL 300 Test includes Oxydodone and Oxymorphone. TESTING PERFORMED AT [facility]. ORIGINAL REPORT ON FILE IN LAB CONTAINS ADDITIONAL TEST SITE INFORMATION. :16 Urine Drug Screen (VISTA) Comments: Comments: [id number]; URINE TOX; RUN LOWEST TEST IN [facility] Drugs Taken or Suspected? [facility] [address] [place], [address] THC NEGATIVE (Normal) PCP NEGATIVE (Normal) OPIATES NEGATIVE (Normal) METHADONE NEGATIVE (Normal) ECSTACY NEGATIVE (Normal) COCAINE NEGATIVE (Normal) BENZODIAZIPINE NEGATIVE (Normal) BARBITIURATES NEGATIVE (Normal) AMPHETAMINES NEGATIVE (Normal) VISTA UDS PH 6 (Normal) TO BE CONFIRMED (Normal) Comments: CONFIRMATORY TESTING FOR ALL POSITIVE URINE DRUG SCREENRESULTS WILL ONLY BE SENT OUT UPON PHYSICIAN ORDER.VISTA Urine Drug Screen methods provide only preliminaryanalytical test results. A more specific alternate chemicalmethod must be used in order to obtain a confirmedanalytical result. Gas chromatography/mass spectrometery(GC/MS) is the preferred confirmatory method. Clinicalconsideration and profe ssional judgement should be appliedto any drug of abuse test result, particularly whenpreliminary positive results are used.URINE TCA TESTING MUST BE ORDERED SEPARATELY. USE TESTMNEMONIC: [facility] 77-Alv-27573:28 Microscopic Examination Comments: PATIENT WAS FASTINGPERFORMED BY: LabCoCarrier ClinicPzroda7752 [facility] [id number] Bacteria Few (Normal) Mucus Threads Present (Normal) Epithelial Cells (non renal) 0-10 {/hpf} (Normal) Range: 0 - 10 RBC 0-2 {/hpf} (Normal) Range: 0 - 2 WBC 0-5 {/hpf} (Normal) Range: 0 - 5 :52 Basic Metabolic Profile (BMP) Comments: [facility] [address] [place], [place], [id number] GAP 10 (Normal) Range: 5-15 CO2 27.0 mmol/L (Normal) Range: 21.0-32.0 CL 103 mmol/L (Normal) Range: 98-107 K 4.1 mmol/L (Normal) Range: 3.5-5.1 Comments: Moderate Hemolysis, Result may be falsely increased. NA 140 mmol/L (Normal) Range: 136-145 CA 9.2 mg/dL (Normal) Range: 8.5-10.1 BUN/CRE 15.2 {RATIO} (Normal) Range: 10-20 Estimated CRCL 44.41 ml/min (Normal) EST GFR - AA 91 mL/min (Normal) Comments: GFR Calc EST GFR 75 mL/min (Normal) Comments: Non- GFR Calc CREAT,SERUM 0.79 mg/dL (Normal) Range: 0.55-1.02 Comments: The validity of the calculated GFR AND GFRAA in patients over70 years has not been determined. Clinical correlation isessential. BUN 12 mg/dL (Normal) Range: 7-18 GLU 155 mg/dL (Abnormal) Range: 74-106 Comments: Fasting Glucose result greater than or equal to 126 mg/dLsuggests DIABETES MELLITUS per A.D.A. criteria.Please note revised GLUCOSE reference range /02/2018. 07-May-20188:52 CBC W/Diff, Automated Comments: [facility] [address] [place], [place], [id number] Absolute Lymph 1.75 {X10_3/ul} (Normal) Range: 0.83-4.51 Absolute Neut 5.1 {X10_3/uL} (Normal) Range: 2.0-7.7 IM GRAN % 0.400 % (Normal) Range: 0.0-0.9 Comments: IG% - Immature Granulocytes (promyelocytes, myelocytes andmetamyelocytes) > 1% indicates that a LEFT SHIFT is Present. BASO% 0.5 % (Normal) Range: 0-1 EO% 1.3 % (Normal) Range: 0-5 MONO% 8.9 % (Normal) Range: 0-10 LY% 22.8 % (Normal) Range: 19-41 NEUT% 66.1 % (Normal) Range: 47-70 MPV 10.6 fL (Normal) Range: 6.2-12.0 PLT 260 K/mm3 (Normal) Range: 150-450 RDW SD 59.4 fL (Abnormal) Range: 35.1-43.9 RDW CV 16.7 % (Abnormal) Range: 11.6-14.6 MCHC 34.1 {g/gl} (Normal) Range: 32-36 MCH 33.5 pg (Abnormal) Range: 27.0-32.0 MCV 98.2 fL (Normal) Range: 81-99 HCT 43.7 % (Normal) Range: 37-47 HGB 14.9 g/dL (Normal) Range: 12.0-15.0 RBC 4.45 {M/mm3} (Normal) Range: 4.2-5.4 WBC 7.7 K/mm3 (Normal) Range: 4.4-11.0 :05 CBC W/Diff, Automated Comments: [facility] [id number] [place], [address] Absolute Lymph 1.82 {X10_3/ul} (Normal) Range: 0.83-4.51 Absolute Neut 4.4 {X10_3/uL} (Normal) Range: 2.0-7.7 IM GRAN % 0.100 % (Normal) Range: 0.0-0.9 Comments: IG% - Immature Granulocytes (promyelocytes, myelocytes andmetamyelocytes) > 1% indicates that a LEFT SHIFT is Present. BASO% 0.4 % (Normal) Range: 0-1 EO% 2.3 % (Normal) Range: 0-5 MONO% 7.6 % (Normal) Range: 0-10 LY% 26.1 % (Normal) Range: 19-41 NEUT% 63.5 % (Normal) Range: 47-70 MPV 9.9 fL (Normal) Range: 6.2-12.0 PLT 295 K/mm3 (Normal) Range: 150-450 RDW SD 50.5 fL (Abnormal) Range: 35.1-43.9 RDW CV 14.9 % (Abnormal) Range: 11.6-14.6 MCHC 32.2 {g/gl} (Normal) Range: 32-36 MCH 31.4 pg (Normal) Range: 27.0-32.0 MCV 97.5 fL (Normal) Range: 81-99 HCT 42.2 % (Normal) Range: 37-47 HGB 13.6 g/dL (Normal) Range: 12.0-15.0 RBC 4.33 {M/mm3} (Normal) Range: 4.2-5.4 WBC 7.0 K/mm3 (Normal) Range: 4.4-11.0 :05 Comprehensive Metabolic Profil Comments: [facility] [address] [place], [address] GAP 12 (Normal) Range: 5-15 CO2 28.0 mmol/L (Normal) Range: 21.0-32.0 CL 105 mmol/L (Normal) Range: 98-107 K 3.4 mmol/L (Abnormal) Range: 3.5-5.1 NA 145 mmol/L (Normal) Range: 136-145 T BILI 0.30 mg/dL (Normal) Range: 0.20-1.00 ALT 21 U/L (Normal) Range: 13-56 ALK P 80 U/L (Normal) Range: 45-117 AST 13 U/L (Abnormal) Range: 15-37 CA 8.3 mg/dL (Abnormal) Range: 8.5-10.1 A/G 1.3 {RATIO} (Normal) Range: 0.9-2.4 GLOB 3.1 g/dL (Normal) Range: 2.2-4.2 ALB 4.1 g/dL (Normal) Range: 3.2-5.0 T PROT 7.2 g/dL (Normal) Range: 6.4-8.2 BUN/CRE 22.4 {RATIO} (Abnormal) Range: 10-20 EST GFR - AA 79 mL/min (Normal) Comments: GFR Calc EST GFR 66 mL/min (Normal) Comments: Non- GFR Calc CREAT,SERUM 0.89 mg/dL (Normal) Range: 0.55-1.02 Comments: The validity of the calculated GFR AND GFRAA in patients over70 years has not been determined. Clinical correlation isessential. BUN 20 mg/dL (Abnormal) Range: 7-18 GLU 118 mg/dL (Abnormal) Range: 74-106 Comments: Fasting Glucose result from 100 to 125 mg/dLsuggests IMPAIRED HOMEOSTASIS per A.D.A. criteria.Please note revised GLUCOSE reference range tsymnxncj42/02/2018. 49-Xtr-13268:28 CALCIFEDIOL (92381) Comments: PATIENT WAS FASTINGPERFORMED BY: [facility] Kusyos8690 [facility] [id number] Vitamin D, 25-Hydroxy 45.7 ng/mL (Normal) Range: 30.0-100.0 Comments: Vitamin D deficiency has been defined by the [place] [facility] and an Endocrine Society practice guideline as alevel of serum 25-OH vitamin D less than 20 ng/mL (1,2).The Endocrine Society went on to further define vitamin Dinsufficiency as a level between 21 and 29 ng/mL (2).1. IOM ([place] [facility] [employer]). 2010. Dietary reference intakes for calcium and D. [place]: The National Academies Press.2. Delma MF, Mckenna ABDALLA, Dane MACKENZIE, et al. Evaluation, treatment, and prevention of vitamin D deficiency: an Endocrine Society clinical practice guideline. JCEM. 2010; 96(7):1911-30. :28 VITAMIN B-12 (CYANOCOBALAMIN) Comments: PATIENT WAS FASTINGPERFORMED BY: [employer] Initiativeox RoadDublin [place] [id number] (43[address]) Vitamin B12 507 pg/mL (Normal) Range: 232-1245 :28 TSH (11156) Comments: PATIENT WAS FASTINGPERFORMED BY: [employer] Magazinelin6370 Doyle RoadDublin [place] [id number] TSH 0.816 {uIU/mL} (Normal) Range: 0.450-4.500 :28 URINALYSIS, W/ MICRO (65468) Comments: PATIENT WAS FASTINGPERFORMED BY: [facility]6370 Doyle RoadDublin [place] [id number] Microscopic Examination See below: (Normal) Comments: Microscopic was indicated and was performed. Nitrite, Urine Negative (Normal) Urobilinogen,Semi-Qn 0.2 mg/dL (Normal) Range: 0.2-1.0 Bilirubin Negative (Normal) Occult Blood Negative (Normal) Ketones Negative (Normal) Glucose Negative (Normal) Protein Negative (Normal) WBC Esterase 1+ (Abnormal) Appearance Clear (Normal) Urine-Color Yellow (Normal) pH 7.0 (Normal) Range: 5.0-7.5 Specific Perrin 1.017 (Normal) Range: 1.005-1.030 :28 MICROALBUMIN: CREATININE RATIO Comments: PATIENT WAS FASTINGPERFORMED BY: [employer]70 [facility] [id number] ([id number]) AND (08025) Alb/Creat Ratio 9.9 {mg/g_creat} (Normal) Range: 0.0-30.0 Albumin, Urine 7.9 ug/mL (Normal) Creatinine, Urine 79.8 mg/dL (Normal) 06-Lrb-15485:28 METABOLIC PANEL, COMPREHENSIVE Comments: PATIENT WAS FASTINGPERFORMED BY: [employer] [facility]70 [facility] [id number] (53118) ALT (SGPT) 13 [iU]/L (Normal) Range: 0-32 AST (SGOT) 15 [iU]/L (Normal) Range: 0-40 Alkaline Phosphatase 70 [iU]/L (Normal) Range: 39-117 Bilirubin, Total 0.6 mg/dL (Normal) Range: 0.0-1.2 A/G Ratio 1.7 (Normal) Range: 1.2-2.2 Globulin, Total 2.6 g/dL (Normal) Range: 1.5-4.5 Albumin 4.5 g/dL (Normal) Range: 3.5-4.8 Protein, Total 7.1 g/dL (Normal) Range: 6.0-8.5 Calcium 9.6 mg/dL (Normal) Range: 8.7-10.3 Carbon Dioxide, Total 24 mmol/L (Normal) Range: 20-29 Chloride 102 mmol/L (Normal) Range: 96-106 Potassium 4.7 mmol/L (Normal) Range: 3.5-5.2 Sodium 142 mmol/L (Normal) Range: 134-144 BUN/Creatinine Ratio 14 (Normal) Range: 12-28 eGFR If Africn Am 94 mL/min/1.73 (Normal) eGFR If NonAfricn Am 81 mL/min/1.73 (Normal) Creatinine 0.73 mg/dL (Normal) Range: 0.57-1.00 BUN 10 mg/dL (Normal) Range: 8-27 Glucose 142 mg/dL (Abnormal) Range: 65-99 31-Ouc-44227:28 LIPID PANEL (38767) Comments: PATIENT WAS FASTINGPERFORMED BY: [employer] [facility]70 [facility] [id number] LDL/HDL Ratio 3.2 {ratio} (Normal) Range: 0.0-3.2 Comments: LDL/HDL Ratio Men Women 1/2 Avg.Risk 1.0 1.5 Av g.Risk 3.6 3.2 2X Avg.Risk 6.2 5.0 3X Avg.Risk 8.0 6.1 LDL Cholesterol Calc 143 mg/dL (Abnormal) Range: 0-99 VLDL Cholesterol Peg 29 mg/dL (Normal) Range: 5-40 HDL Cholesterol 45 mg/dL (Normal) Triglycerides 143 mg/dL (Normal) Range: 0-149 Cholesterol, Total 217 mg/dL (Abnormal) Range: 100-199 58-Xls-66557:28 CBC W/AUTO DIFF WBC (57982) Comments: PATIENT WAS FASTINGPERFORMED BY: [facility] Ygpctf8795 [facility] [id number] Immature Grans (Abs) 0.0 {x10E3/uL} (Normal) Range: 0.0-0.1 Immature Granulocytes 0 % (Normal) Baso (Absolute) 0.0 {x10E3/uL} (Normal) Range: 0.0-0.2 Eos (Absolute) 0.0 {x10E3/uL} (Normal) Range: 0.0-0.4 Monocytes(Absolute) 0.2 {x10E3/uL} (Normal) Range: 0.1-0.9 Lymphs (Absolute) 1.3 {x10E3/uL} (Normal) Range: 0.7-3.1 Neutrophils (Absolute) 4.3 {x10E3/uL} (Normal) Range: 1.4-7.0 Basos 0 % (Normal) Eos 0 % (Normal) Monocytes 4 % (Normal) Lymphs 22 % (Normal) Neutrophils 74 % (Normal) Platelets 362 {x10E3/uL} (Normal) Range: 150-379 RDW 16.4 % (Abnormal) Range: 12.3-15.4 MCHC 33.6 g/dL (Normal) Range: 31.5-35.7 MCH 32.7 pg (Normal) Range: 26.6-33.0 MCV 97 fL (Normal) Range: 79-97 Hematocrit 40.8 % (Normal) Range: 34.0-46.6 Hemoglobin 13.7 g/dL (Normal) Range: 11.1-15.9 RBC 4.19 {x10E6/uL} (Normal) Range: 3.77-5.28 WBC 5.9 {x10E3/uL} (Normal) Range: 3.4-10.8 :43 HgA1C , Office (46144) HgA1C , Office 6.3 % (Normal) Range: 4.6 - 7.1 :43 Blood Glucose , Office (32744) Blood Glucose , Office 105 (Normal) :55 MAGNESIUM (51252) Comments: PATIENT NOT FASTINGPERFORMED BY: LabCoCarrier ClinicJlcfwk5220 [facility] [id number] Magnesium 1.6 mg/dL (Normal) Range: 1.6-2.3 :55 POTASSIUM SERUM (29923) Comments: PATIENT NOT FASTINGPERFORMED BY: [facility] Lnlnfg3417 [facility] [id number]; ov 02/19 Potassium 4.8 mmol/L (Normal) Range: 3.5-5.2 :59 CBC W/Diff, Automated Comments: [facility] [address] [place], [place], [id number] Absolute Lymph 2.55 {X10_3/ul} (Normal) Range: 0.83-4.51 Absolute Neut 2.6 {X10_3/uL} (Normal) Range: 2.0-7.7 IM GRAN % 0.500 % (Normal) Range: 0.0-0.9 Comments: IG% - Immature Granulocytes (promyelocytes, myelocytes andmetamyelocytes) > 1% indicates that a LEFT SHIFT is Present. BASO% 0.8 % (Normal) Range: 0-1 EO% 3.5 % (Normal) Range: 0-5 MONO% 12.6 % (Abnormal) Range: 0-10 LY% 40.7 % (Normal) Range: 19-41 NEUT% 41.9 % (Abnormal) Range: 47-70 MPV 9.5 fL (Normal) Range: 6.2-12.0 PLT 358 K/mm3 (Normal) Range: 150-450 RDW SD 58.2 fL (Abnormal) Range: 35.1-43.9 RDW CV 16.5 % (Abnormal) Range: 11.6-14.6 MCHC 31.7 {g/gl} (Abnormal) Range: 32-36 MCH 30.9 pg (Normal) Range: 27.0-32.0 MCV 97.4 fL (Normal) Range: 81-99 HCT 42.0 % (Normal) Range: 37-47 HGB 13.3 g/dL (Normal) Range: 12.0-15.0 RBC 4.31 {M/mm3} (Normal) Range: 4.2-5.4 WBC 6.3 K/mm3 (Normal) Range: 4.4-11.0 07-Dec-20178:59 Comprehensive Metabolic Profil Comments: [facility] [address] [place], [address] GAP 8 (Normal) Range: 5-15 CO2 32.0 mmol/L (Normal) Range: 21.0-32.0 CL 100 mmol/L (Normal) Range: 98-107 K 3.4 mmol/L (Abnormal) Range: 3.5-5.1 NA 140 mmol/L (Normal) Range: 136-145 T BILI 0.40 mg/dL (Normal) Range: 0.20-1.00 ALT 21 U/L (Normal) Range: 13-56 Comments: Please note revised ALT reference range qpoiixoic25/28/2018. ALK P 76 U/L (Normal) Range: 45-117 AST 13 U/L (Abnormal) Range: 15-37 CA 8.9 mg/dL (Normal) Range: 8.5-10.1 A/G 1.1 {RATIO} (Normal) Range: 0.9-2.4 GLOB 3.6 g/dL (Normal) Range: 2.2-4.2 ALB 3.9 g/dL (Normal) Range: 3.2-5.0 T PROT 7.5 g/dL (Normal) Range: 6.4-8.2 BUN/CRE 16.9 {RATIO} (Normal) Range: 10-20 EST GFR - AA 94 mL/min (Normal) Comments: GFR Calc EST GFR 78 mL/min (Normal) Comments: Non- GFR Calc CREAT,SERUM 0.77 mg/dL (Normal) Range: 0.55-1.02 Comments: The validity of the calculated GFR AND GFRAA in patients over70 years has not been determined. Clinical correlation isessential. BUN 13 mg/dL (Normal) Range: 7-18 GLU 107 mg/dL (Abnormal) Range: 74-106 Comments: Fasting Glucose result from 100 to 125 mg/dLsuggests IMPAIRED HOMEOSTASIS per A.D.A. criteria.Please note revised GLUCOSE reference range cvdgapctx92/02/2018. 8-Gtv-061976:40 Microscopic Examination Comments: PATIENT WAS FASTINGPERFORMED BY: [employer] [id number] BY: [employer] Doyle RoadDublin [place] [id number] Bacteria Few (Normal) Epithelial Cells (non renal) 0-10 {/hpf} (Normal) Range: 0 - 10 RBC None seen {/hpf} (Normal) Range: 0 - 2 WBC 0-5 {/hpf} (Normal) Range: 0 - 5 1-Wgt-258863:40 VITAMIN B-12 (CYANOCOBALAMIN) Comments: PATIENT WAS FASTINGPERFORMED BY: [employer] [address] [id number] BY: [employer] [place] [id number] (105[address]) Vitamin B12 470 pg/mL (Normal) Range: 232-1245 5-Dnf-241900:40 CALCIFIDIOL (01461) VIT D Comments: PATIENT WAS FASTINGPERFORMED BY: [employer] [address] [id number] BY: [address]igm[address] [facility]3] [place] [id number] 25 Vitamin D, 25-Hydroxy 36.1 ng/mL (Normal) Range: 30.0-100.0 Comments: Vitamin D deficiency has been defined by the [place] [facility] and an Endocrine Society practice guideline as alevel of serum 25-OH vitamin D less than 20 ng/mL (1,2).The Endocrine Society went on to further define vitamin Dinsufficiency as a level between 21 and 29 ng/mL (2).1. IOM ([place] [facility] [employer] [facility]). 2010. Dietary reference intakes for calcium and D. [place]: The National Academies Press.2. Delma MF, Mckenna ABDALLA, Dane MACKENZIE, et al. Evaluation, treatment, and prevention of vitamin D deficiency: an Endocrine Society clinical practice guideline. JCEM. 2010; 96(7):1911-30. 9-Jyd-131568:40 LIPOPROTEIN, BLD, BY NMR Comments: PATIENT WAS FASTINGPERFORMED BY: BN [facility] Jykadtqchr1596 [facility] [id number] BY: CB [facility] Kgtykc9566 [facility] [id number] (79734) LP-IR Score 80 (Abnormal) Comments: INSULIN RESISTANCE MARKER <--Insulin Sensitive Insulin Resistant--> Percentile in Reference PopulationInsulin Resistance ScoreLP-IR Score Low 25th 50th 75th High <27 27 45 63 >63LP-IR Score is inaccurate if patient is non-fasting. .The LP-IR score is a laboratory developed i [facility] that has beenassociated with insulin resistance and diabetes risk and should beused as one component of a physician's clinical assessment. TheLP-IR score listed above has not been cleared by the [place] Food andDrug Administration. LDL Size 19.7 nm (Normal) Comments: INTERPRETATIVE INFORMATION PARTICLE CONCENTRATION AND SIZE <--Lower CVD Risk Highe r CVD Risk--> LDL AND HDL PARTICLES Percentile in Reference Population HDL-P (total) High 75th 50th 25th Low >34.9 34.9 30.5 26.7 <26.7 . Small LDL-P Low 25th 50th 75th High <117 117 527 839 >839 . LDL Size <-Large (Pattern A)-> <-Small (Pattern B)-> 23.0 20.6 20.5 19.0 Small LDL-P and LDL Size are associated with CVD risk, but not afterLDL-P is taken into account. .These assays were developed and their performance characteristicsdetermined by [employer]. These assays have not been cleared by [place] Food and Drug Administration. The clinical utility of theselaboratory values have not been fully established. Small LDL-P 1644 nmol/L (Abnormal) HDL-P (Total) 34.5 umol/L (Normal) Cholesterol, Total 218 mg/dL (Abnormal) Range: 100-199 Triglycerides 258 mg/dL (Abnormal) Range: 0-149 HDL-C 40 mg/dL (Normal) LDL-C 126 mg/dL (Abnormal) Range: 0-99 Comments: . Optimal < 100 Above optimal 100 - 129 Borderline 1 30 - 159 High 160 - 189 Very high > 189 .LDL-C is inaccurate if patient is non-fasting. LDL-P 2130 nmol/L (Abnormal) Comments: Low < 1000 Moderate 1000 - 1299 Borderline-High 1300 - 1599 High 1600 - 2000 Very High > 2000 7-Vcu-306009:40 TSH (33149) Comments: PATIENT WAS FASTINGPERFORMED BY: [employer] [facility] [id number] BY: [facility]6370 [facility] [id number] TSH 1.780 {uIU/mL} (Normal) Range: 0.450-4.500 9-Wlu-135612:40 URINALYSIS, W/ MICRO Comments: PATIENT WAS FASTINGPERFORMED BY: [employer] [id number] BY: [employer]70 [facility] [id number] (16714) Microscopic Examination See below: (Normal) Comments: Microscopic was indicated and was performed. Microscopic Examination MICRON (Normal) Comments: Microscopic follows if indicated. Nitrite, Urine Negative (Normal) Urobilinogen,Semi-Qn 0.2 mg/dL (Normal) Range: 0.2-1.0 Bilirubin Negative (Normal) Occult Blood Negative (Normal) Ketones Negative (Normal) Glucose Negative (Normal) Protein Negative (Normal) WBC Esterase Negative (Normal) Appearance Clear (Normal) Urine-Color Yellow (Normal) pH 7.5 (Normal) Range: 5.0-7.5 Specific Perrin 1.016 (Normal) Range: 1.005-1.030 3-Duu-730412:40 MICROALBUMIN: CREATININE Comments: PATIENT WAS FASTINGPERFORMED BY: Only-apartments[address] [id number] BY: Only-apartmentsNicole [place] 6269470 [facility] [id number] RATIO (65236) AND (70526) Alb/Creat Ratio 8.6 {mg/g_creat} (Normal) Range: 0.0-30.0 Albumin, Urine 4.7 ug/mL (Normal) Creatinine, Urine 54.7 mg/dL (Normal) 0-Xtt-052604:40 METABOLIC PANEL, Comments: PATIENT WAS FASTINGPERFORMED BY: Only-apartments[address] [id number] BY: Only-apartmentsCarrier ClinicMpiode6725 [facility] [id number] COMPREHENSIVE (06648) ALT (SGPT) 17 [iU]/L (Normal) Range: 0-32 AST (SGOT) 17 [iU]/L (Normal) Range: 0-40 Alkaline Phosphatase 65 [iU]/L (Normal) Range: 39-117 Bilirubin, Total 0.3 mg/dL (Normal) Range: 0.0-1.2 A/G Ratio 2.0 (Normal) Range: 1.2-2.2 Globulin, Total 2.1 g/dL (Normal) Range: 1.5-4.5 Albumin 4.2 g/dL (Normal) Range: 3.5-4.8 Protein, Total 6.3 g/dL (Normal) Range: 6.0-8.5 Calcium 9.0 mg/dL (Normal) Range: 8.7-10.3 Carbon Dioxide, Total 29 mmol/L (Normal) Range: 18-29 Chloride 98 mmol/L (Normal) Range: 96-106 Potassium 3.8 mmol/L (Normal) Range: 3.5-5.2 Sodium 143 mmol/L (Normal) Range: 134-144 BUN/Creatinine Ratio 21 (Normal) Range: 12-28 eGFR If Africn Am 103 mL/min/1.73 (Normal) eGFR If NonAfricn Am 89 mL/min/1.73 (Normal) Creatinine 0.62 mg/dL (Normal) Range: 0.57-1.00 BUN 13 mg/dL (Normal) Range: 8-27 Glucose 99 mg/dL (Normal) Range: 65-99 2-Fnm-897590:40 CBC W/AUTO DIFF WBC Comments: PATIENT WAS FASTINGPERFORMED BY: BN [facility] Fxcdhmqriu3969 [facility] [id number] BY: CB [facility] Mnlptb8433 [facility] [id number]; ov tomrrow 12/07 (43942) Immature Grans (Abs) 0.0 {x10E3/uL} (Normal) Range: 0.0-0.1 Immature Granulocytes 0 % (Normal) Baso (Absolute) 0.0 {x10E3/uL} (Normal) Range: 0.0-0.2 Eos (Absolute) 0.1 {x10E3/uL} (Normal) Range: 0.0-0.4 Monocytes(Absolute) 0.7 {x10E3/uL} (Normal) Range: 0.1-0.9 Lymphs (Absolute) 2.1 {x10E3/uL} (Normal) Range: 0.7-3.1 Neutrophils (Absolute) 3.3 {x10E3/uL} (Normal) Range: 1.4-7.0 Basos 0 % (Normal) Eos 1 % (Normal) Monocytes 11 % (Normal) Lymphs 34 % (Normal) Neutrophils 54 % (Normal) Platelets 305 {x10E3/uL} (Normal) Range: 150-379 RDW 16.5 % (Abnormal) Range: 12.3-15.4 MCHC 32.6 g/dL (Normal) Range: 31.5-35.7 MCH 31.2 pg (Normal) Range: 26.6-33.0 MCV 96 fL (Normal) Range: 79-97 Hematocrit 37.7 % (Normal) Range: 34.0-46.6 Hemoglobin 12.3 g/dL (Normal) Range: 11.1-15.9 RBC 3.94 {x10E6/uL} (Normal) Range: 3.77-5.28 WBC 6.2 {x10E3/uL} (Normal) Range: 3.4-10.8 :26 HgA1C , Office (23795) HgA1C , Office 6.7 % (Normal) Range: 4.6 - 7.1 :26 Blood Glucose , Office (68325) Blood Glucose , Office 141 (Normal) 5-Zbx-263237:10 CBC W/Diff, Automated Comments: [facility] [address] [place], [place], [id number] Absolute Lymph 2.70 {X10_3/ul} (Normal) Range: 0.83-4.51 Absolute Neut 3.3 {X10_3/uL} (Normal) Range: 2.0-7.7 IM GRAN % 0.300 % (Normal) Range: 0.0-0.9 Comments: IG% - Immature Granulocytes (promyelocytes, myelocytes andmetamyelocytes) > 1% indicates that a LEFT SHIFT is Present. BASO% 1.0 % (Normal) Range: 0-1 EO% 5.2 % (Abnormal) Range: 0-5 MONO% 10.0 % (Normal) Range: 0-10 LY% 37.9 % (Normal) Range: 19-41 NEUT% 45.6 % (Abnormal) Range: 47-70 MPV 10.2 fL (Normal) Range: 6.2-12.0 PLT 307 K/mm3 (Normal) Range: 150-450 RDW SD 47.4 fL (Abnormal) Range: 35.1-43.9 RDW CV 14.1 % (Normal) Range: 11.6-14.6 MCHC 32.2 {g/gl} (Normal) Range: 32-36 MCH 30.6 pg (Normal) Range: 27.0-32.0 MCV 95.0 fL (Normal) Range: 81-99 HCT 40.1 % (Normal) Range: 37-47 HGB 12.9 g/dL (Normal) Range: 12.0-15.0 RBC 4.22 {M/mm3} (Normal) Range: 4.2-5.4 WBC 7.1 K/mm3 (Normal) Range: 4.4-11.0 [id number] Comprehensive Metabolic Profil Comments: [facility] [id number] [place], [place], [id number] GAP 10 (Normal) Range: 5-15 CO2 28.0 mmol/L (Normal) Range: 21.0-32.0 CL 100 mmol/L (Normal) Range: 98-107 K 3.8 mmol/L (Normal) Range: 3.5-5.1 NA 138 mmol/L (Normal) Range: 136-145 T BILI 0.40 mg/dL (Normal) Range: 0.20-1.00 ALT 16 U/L (Normal) Range: 13-56 Comments: Please note revised ALT reference range [id number]/2018. ALK P 81 U/L (Normal) Range: 45-117 AST 14 U/L (Abnormal) Range: 15-37 CA 8.3 mg/dL (Abnormal) Range: 8.5-10.1 A/G 1.1 {RATIO} (Normal) Range: 0.9-2.4 GLOB 3.2 g/dL (Normal) Range: 2.2-4.2 ALB 3.5 g/dL (Normal) Range: 3.2-5.0 T PROT 6.7 g/dL (Normal) Range: 6.4-8.2 BUN/CRE 18.7 {RATIO} (Normal) Range: 10-20 EST GFR - AA 97 mL/min (Normal) Comments: GFR Calc EST GFR 80 mL/min (Normal) Comments: Non- GFR Calc CREAT,SERUM 0.75 mg/dL (Normal) Range: 0.55-1.02 Comments: The validity of the calculated GFR AND GFRAA in patients over70 years has not been determined. Clinical correlation isessential. BUN 14 mg/dL (Normal) Range: 7-18 GLU 132 mg/dL (Abnormal) Range: 74-106 Comments: Fasting Glucose result greater than or equal to 126 mg/dLsuggests DIABETES MELLITUS per A.D.A. criteria. 0-Xtc-843406:10 CRP Comments: [facility] [address] [place], [place], [id number] C-REACTIVE PROT 4.26 mg/L (Abnormal) Range: 0.0-3.0 Comments: C-Reactive Protein (CRP) provides useful information for thediagnosis, therapy and monitoring of inflammatory processesand associated diseases. For the evaluation of Relative Riskfor Cardiovascular Dise ase, a High Sensitivity CRP (HSCRP)should be ordered. 2-Vif-364803:10 Erythrocyte Sed Rate Comments: [facility] [address] [place], [address] SED RATE 7 mm/h (Normal) Range: 0-30 07-Sep-20178:49 Rapid Flu (19726 x 2) Influenza A Ag Positive (Normal) Comments: A, no flu shot 1-Zrv-561984:31 Rapid Strep Test, Office (73349) Rapid Strep Test, Office Negative (Normal) 09-Aug-20173:51 THROAT CULTURE (84296) Comments: PATIENT NOT FASTINGPERFORMED BY: [employer] [facility] [id number] Information: SRC:TH Result 1 RRF (Normal) Comments: Routine respiratory vicente Upper Respiratory Final report Culture (Normal) Lipase, Serum 11 U/L (Abnormal) Comments: PATIENT NOT FASTINGPERFORMED BY: [employer] Yjvieg7384 [facility] [id number] :30 Range: 14-85 Written Authorization WAR (Normal) Comments: PATIENT NOT FASTINGPERFORMED BY: [employer] Zbhlkg5911 [facility] [id number] :30 Comments: Written Authorization Received.Authorization received from original requistion [id number] by Ann Hartley 1-Jfo-167027:30 METABOLIC PANEL, COMPREHENSIVE Comments: stat; PATIENT NOT FASTINGPERFORMED BY: [employer] [facility] [id number] (03913) ALT (SGPT) 5 [iU]/L (Normal) Range: 0-32 AST (SGOT) 15 [iU]/L (Normal) Range: 0-40 Alkaline Phosphatase, S 102 [iU]/L (Normal) Range: 39-117 Bilirubin, Total 0.3 mg/dL (Normal) Range: 0.0-1.2 A/G Ratio 1.2 (Normal) Range: 1.2-2.2 Globulin, Total 2.9 g/dL (Normal) Range: 1.5-4.5 Albumin, Serum 3.4 g/dL (Abnormal) Range: 3.5-4.8 Protein, Total, Serum 6.3 g/dL (Normal) Range: 6.0-8.5 Calcium, Serum 8.2 mg/dL (Abnormal) Range: 8.7-10.3 Carbon Dioxide, Total 23 mmol/L (Normal) Range: 18-29 Chloride, Serum 102 mmol/L (Normal) Range: 96-106 Potassium, Serum 3.5 mmol/L (Normal) Range: 3.5-5.2 Sodium, Serum 144 mmol/L (Normal) Range: 134-144 BUN/Creatinine Ratio 11 (Abnormal) Range: 12-28 eGFR If Africn Am 114 mL/min/1.73 (Normal) eGFR If NonAfricn Am 99 mL/min/1.73 (Normal) Creatinine, Serum 0.45 mg/dL (Abnormal) Range: 0.57-1.00 BUN 5 mg/dL (Abnormal) Range: 8-27 Glucose, Serum 99 mg/dL (Normal) Range: 65-99 8-Vad-205807:30 CBC W/AUTO DIFF WBC (39793) Comments: stat; PATIENT NOT FASTINGPERFORMED BY: [facility] Azeavk7182 [facility] [id number] Immature Grans (Abs) 0.0 {x10E3/uL} (Normal) Range: 0.0-0.1 Immature Granulocytes 0 % (Normal) Baso (Absolute) 0.0 {x10E3/uL} (Normal) Range: 0.0-0.2 Eos (Absolute) 0.1 {x10E3/uL} (Normal) Range: 0.0-0.4 Monocytes(Absolute) 0.5 {x10E3/uL} (Normal) Range: 0.1-0.9 Lymphs (Absolute) 1.6 {x10E3/uL} (Normal) Range: 0.7-3.1 Neutrophils (Absolute) 5.1 {x10E3/uL} (Normal) Range: 1.4-7.0 Basos 0 % (Normal) Eos 1 % (Normal) Monocytes 6 % (Normal) Lymphs 22 % (Normal) Neutrophils 71 % (Normal) Platelets 470 {x10E3/uL} (Abnormal) Range: 150-379 RDW 16.0 % (Abnormal) Range: 12.3-15.4 MCHC 32.8 g/dL (Normal) Range: 31.5-35.7 MCH 29.3 pg (Normal) Range: 26.6-33.0 MCV 89 fL (Normal) Range: 79-97 Hematocrit 40.9 % (Normal) Range: 34.0-46.6 Hemoglobin 13.4 g/dL (Normal) Range: 11.1-15.9 Comments: Please note reference interval change RBC 4.58 {x10E6/uL} (Normal) Range: 3.77-5.28 WBC 7.3 {x10E3/uL} (Normal) Range: 3.4-10.8 8-Pwd-552680:31 Rapid Flu (56950 x 2) Influenza A Ag Negative (Normal) 87-Eyd-291130:28 HgA1C , Office (93133) HgA1C , Office 6.3 % (Normal) Range: 4.6 - 7.1 12-Ldb-877385:28 Blood Glucose , Office (68668) Blood Glucose , Office 133 (Normal) 17-Myj-961196:27 VITAMIN B-12 (CYANOCOBALAMIN) Comments: PATIENT NOT FASTINGPERFORMED BY: [facility] [id number] (15006) Vitamin B12 258 pg/mL (Normal) Range: 211-946 50-Btu-689207:27 MAGNESIUM (65717) Comments: PATIENT NOT FASTINGPERFORMED BY: [employer]6370 [address] [facility] HospitalstreamitEC[facility] [id number] Magnesium, Serum 1.6 mg/dL (Normal) Range: 1.6-2.3 87-Jsn-192591:27 Metabolic Panel, Basic Comments: PATIENT NOT FASTINGPERFORMED BY: [employer]70 [facility] [id number] (35912) Calcium, Serum 9.3 mg/dL (Normal) Range: 8.7-10.3 Carbon Dioxide, Total 21 mmol/L (Normal) Range: 18-29 Chloride, Serum 95 mmol/L (Abnormal) Range: 96-106 Potassium, Serum 4.1 mmol/L (Normal) Range: 3.5-5.2 Sodium, Serum 140 mmol/L (Normal) Range: 134-144 BUN/Creatinine Ratio 20 (Normal) Range: 12-28 eGFR If Africn Am 111 mL/min/1.73 (Normal) eGFR If NonAfricn Am 96 mL/min/1.73 (Normal) Creatinine, Serum 0.50 mg/dL (Abnormal) Range: 0.57-1.00 BUN 10 mg/dL (Normal) Range: 8-27 Glucose, Serum 138 mg/dL (Abnormal) Range: 65-99 :50 Urinalysis, Complete Comments: How was Urine Obtained? PLANER FEEDER TO [facility] [address] [place], [place], [id number] MUCUS, URINE 0 SEEN {/hpf} (Normal) BACTERIA 1+ {/hpf} (Normal) SQUAM EPI 0-5 SEEN {/hpf} (Normal) Range: 5-10 RBC-UA 0 SEEN {/hpf} (Normal) Range: 0-5 WBC 5-10 SEEN {/hpf} (Normal) Range: 0-5 LEUK ESTERASE 500 /ul (Abnormal) OCCULT BLOOD-UR Negative /ul (Normal) NITRITE UR Positive (Abnormal) UROBILI 1 mg/dL (Abnormal) PROT DIPSTX 30 mg/dL (Abnormal) pH UR 5.0 (Normal) Range: 5.0 - 8.0 SP.GR. DIPSTX 1.015 (Normal) Range: 1.002-1.030 KETONE UR Negative mg/dL (Normal) BILIRUBIN URINE 3 mg/dL (Abnormal) Comments: COLOR OF URINE MAY AFFECT DIPSTICK RESULTS. GLUCOSE, UR Normal mg/dL (Normal) CLARITY Clear (Normal) COLOR Yellow (Normal) :15 CBC W/Diff, Automated Comments: [facility] [address] [place], [place], [address] Absolute Lymph 1.41 {X10_3/ul} (Normal) Range: 0.83-4.51 Absolute Neut 5.4 {X10_3/uL} (Normal) Range: 2.0-7.7 IM GRAN % 0.100 % (Normal) Range: 0.0-0.9 Comments: IG% - Immature Granulocytes (promyelocytes, myelocytes andmetamyelocytes) > 1% indicates that a LEFT SHIFT is Present. BASO% 0.5 % (Normal) Range: 0-1 EO% 2.7 % (Normal) Range: 0-5 MONO% 7.8 % (Normal) Range: 0-10 LY% 18.3 % (Abnormal) Range: 19-41 NEUT% 70.6 % (Abnormal) Range: 47-70 MPV 9.6 fL (Normal) Range: 6.2-12.0 PLT 268 K/mm3 (Normal) Range: 150-450 RDW SD 42.1 fL (Normal) Range: 35.1-43.9 RDW CV 12.5 % (Normal) Range: 11.6-14.6 MCHC 31.7 {g/gl} (Abnormal) Range: 32-36 MCH 30.5 pg (Normal) Range: 27.0-32.0 MCV 96.2 fL (Normal) Range: 81-99 HCT 35.6 % (Abnormal) Range: 37-47 HGB 11.3 g/dL (Abnormal) Range: 12.0-15.0 RBC 3.70 {M/mm3} (Abnormal) Range: 4.2-5.4 WBC 7.7 K/mm3 (Normal) Range: 4.4-11.0 15-Ffu-765493:15 Comprehensive Metabolic Profil Comments: [facility] [address] [place], [place], [id number] GAP 6 (Normal) Range: 5-15 CO2 33.0 mmol/L (Abnormal) Range: 21.0-32.0 CL 102 mmol/L (Normal) Range: 98-107 K 2.9 mmol/L (Abnormal) Range: 3.5-5.1 NA 141 mmol/L (Normal) Range: 136-145 T BILI 0.40 mg/dL (Normal) Range: 0.20-1.00 ALT 12 U/L (Normal) Range: 12-78 ALK P 106 U/L (Normal) Range: 45-117 AST 10 U/L (Abnormal) Range: 15-37 CA 8.6 mg/dL (Normal) Range: 8.5-10.1 A/G 1.1 {RATIO} (Normal) Range: 0.9-2.4 GLOB 3.3 g/dL (Normal) Range: 2.3-3.5 ALB 3.5 g/dL (Normal) Range: 3.4-5.0 T PROT 6.8 g/dL (Normal) Range: 6.4-8.2 BUN/CRE 23.9 {RATIO} (Abnormal) Range: 10-20 Estimated CRCL 45.09 ml/min (Normal) EST GFR - AA 129 mL/min (Normal) Comments: GFR Calc EST GFR 107 mL/min (Normal) Comments: Non- GFR Calc CREAT,SERUM 0.59 mg/dL (Normal) Range: 0.55-1.02 Comments: The validity of the calculated GFR AND GFRAA in patients over70 years has not been determined. Clinical correlation isessential. BUN 14 mg/dL (Normal) Range: 7-18 GLU 101 mg/dL (Normal) Range: 70-110 17-Gqu-183071:09 CBC W/Diff, Automated Comments: [facility] Kgxd[address]axfl[address] [facility] [place], [place], [id number] ; another doc Absolute Lymph 1.90 {X10_3/ul} (Normal) Range: 0.83-4.51 Absolute Neut 3.8 {X10_3/uL} (Normal) Range: 2.0-7.7 IM GRAN % 0.200 % (Normal) Range: 0.0-0.9 Comments: IG% - Immature Granulocytes (promyelocytes, myelocytes andmetamyelocytes) > 1% indicates that a LEFT SHIFT is Present. BASO% 0.3 % (Normal) Range: 0-1 EO% 4.2 % (Normal) Range: 0-5 MONO% 9.2 % (Normal) Range: 0-10 LY% 28.8 % (Normal) Range: 19-41 NEUT% 57.3 % (Normal) Range: 47-70 MPV 9.7 fL (Normal) Range: 6.2-12.0 PLT 394 K/mm3 (Normal) Range: 150-450 RDW SD 43.9 fL (Normal) Range: 35.1-43.9 RDW CV 12.7 % (Normal) Range: 11.6-14.6 MCHC 31.7 {g/gl} (Abnormal) Range: 32-36 MCH 30.0 pg (Normal) Range: 27.0-32.0 MCV 94.7 fL (Normal) Range: 81-99 HCT 40.7 % (Normal) Range: 37-47 HGB 12.9 g/dL (Normal) Range: 12.0-15.0 RBC 4.30 {M/mm3} (Normal) Range: 4.2-5.4 WBC 6.6 K/mm3 (Normal) Range: 4.4-11.0 06-Eaw-157865:09 Comprehensive Metabolic Profil Comments: [facility] [address] [place], [place], [address] GAP 10 (Normal) Range: 5-15 CO2 25.0 mmol/L (Normal) Range: 21.0-32.0 CL 104 mmol/L (Normal) Range: 98-107 K 3.6 mmol/L (Normal) Range: 3.5-5.1 Comments: Moderate Hemolysis, Result may be falsely increased. NA 139 mmol/L (Normal) Range: 136-145 T BILI 0.40 mg/dL (Normal) Range: 0.20-1.00 ALT 14 U/L (Normal) Range: 12-78 ALK P 124 U/L (Abnormal) Range: 45-117 AST 17 U/L (Normal) Range: 15-37 Comments: Moderate Hemolysis, Result may be falsely increased. CA 8.8 mg/dL (Normal) Range: 8.5-10.1 A/G 0.9 {RATIO} (Normal) Range: 0.9-2.4 GLOB 3.9 g/dL (Abnormal) Range: 2.3-3.5 ALB 3.5 g/dL (Normal) Range: 3.4-5.0 T PROT 7.4 g/dL (Normal) Range: 6.4-8.2 BUN/CRE 11.7 {RATIO} (Normal) Range: 10-20 Estimated CRCL 45.09 ml/min (Normal) EST GFR - AA 150 mL/min (Normal) Comments: GFR Calc EST GFR 124 mL/min (Normal) Comments: Non- GFR Calc CREAT,SERUM 0.52 mg/dL (Abnormal) Range: 0.55-1.02 Comments: The validity of the calculated GFR AND GFRAA in patients over70 years has not been determined. Clinical correlation isessential. BUN 6 mg/dL (Abnormal) Range: 7-18 GLU 130 mg/dL (Abnormal) Range: 70-110 Comments: Fasting Glucose result greater than or equal to 126 mg/dLsuggests DIABETES MELLITUS per A.D.A. criteria. 79-Hdy-535166:09 Lipase Comments: [facility] [address] [place], [address] LIPASE 42 U/L (Abnormal) Range: 73-393 3-Joo-846440:19 Metabolic Panel, Comprehensive Comments: PATIENT NOT FASTINGPERFORMED BY: [facility] Fspfoy4181 [facility] [id number] (54194) ALT (SGPT) 11 [iU]/L (Normal) Range: 0-32 AST (SGOT) 21 [iU]/L (Normal) Range: 0-40 Alkaline Phosphatase, S 89 [iU]/L (Normal) Range: 39-117 Bilirubin, Total 0.2 mg/dL (Normal) Range: 0.0-1.2 A/G Ratio 2.0 (Normal) Range: 1.2-2.2 Globulin, Total 2.1 g/dL (Normal) Range: 1.5-4.5 Albumin, Serum 4.1 g/dL (Normal) Range: 3.5-4.8 Protein, Total, Serum 6.2 g/dL (Normal) Range: 6.0-8.5 Calcium, Serum 9.0 mg/dL (Normal) Range: 8.7-10.3 Carbon Dioxide, Total 24 mmol/L (Normal) Range: 18-29 Chloride, Serum 98 mmol/L (Normal) Range: 96-106 Potassium, Serum 4.6 mmol/L (Normal) Range: 3.5-5.2 Sodium, Serum 142 mmol/L (Normal) Range: 134-144 BUN/Creatinine Ratio 21 (Normal) Range: 12-28 eGFR If Africn Am 113 mL/min/1.73 (Normal) eGFR If NonAfricn Am 98 mL/min/1.73 (Normal) Creatinine, Serum 0.47 mg/dL (Abnormal) Range: 0.57-1.00 BUN 10 mg/dL (Normal) Range: 8-27 Glucose, Serum 108 mg/dL (Abnormal) Range: 65-99 2-Xsv-558762:19 HGB A1C (84901) Comments: PATIENT NOT FASTINGPERFORMED BY: [facility]6370 [facility] [id number] Hemoglobin A1c 5.9 % (Abnormal) Range: 4.8-5.6 Comments: . Pre-diabetes: 5.7 - 6.4 Diabetes: >6.4 Glycemic control for adults with diabetes: <7.0 :19 MAGNESIUM (72633) Comments: PATIENT NOT FASTINGPERFORMED BY: [facility]6370 [facility] [id number] Magnesium, Serum 1.7 mg/dL (Normal) Range: 1.6-2.3 4-Bam-011902:19 CBC, Platelets & Auto Diff Comments: PATIENT NOT FASTINGPERFORMED BY: [facility]6370 [facility] [id number] (20890) Immature Grans (Abs) 0.0 {x10E3/uL} (Normal) Range: 0.0-0.1 Immature Granulocytes 0 % (Normal) Baso (Absolute) 0.0 {x10E3/uL} (Normal) Range: 0.0-0.2 Eos (Absolute) 0.1 {x10E3/uL} (Normal) Range: 0.0-0.4 Monocytes(Absolute) 0.6 {x10E3/uL} (Normal) Range: 0.1-0.9 Lymphs (Absolute) 1.6 {x10E3/uL} (Normal) Range: 0.7-3.1 Neutrophils (Absolute) 7.1 {x10E3/uL} (Abnormal) Range: 1.4-7.0 Basos 0 % (Normal) Eos 1 % (Normal) Monocytes 7 % (Normal) Lymphs 17 % (Normal) Neutrophils 75 % (Normal) Platelets 378 {x10E3/uL} (Normal) Range: 150-379 RDW 12.9 % (Normal) Range: 12.3-15.4 MCHC 31.5 g/dL (Normal) Range: 31.5-35.7 MCH 30.3 pg (Normal) Range: 26.6-33.0 MCV 96 fL (Normal) Range: 79-97 Hematocrit 35.6 % (Normal) Range: 34.0-46.6 Hemoglobin 11.2 g/dL (Normal) Range: 11.1-15.9 RBC 3.70 {x10E6/uL} (Abnormal) Range: 3.77-5.28 WBC 9.5 {x10E3/uL} (Normal) Range: 3.4-10.8 91-Ing-084461:41 Comprehensive Metabolic Profil Comments: REDRAW. PREVIOUS SPECIMEN REJECTED DUE TOHEMOLYSIS. 04/28/17 Santosh Ch.[facility] [address] [place], [address] GAP 6 (Normal) Range: 5-15 CO2 25.0 mmol/L (Normal) Range: 21.0-32.0 CL 106 mmol/L (Normal) Range: 98-107 K 4.9 mmol/L (Normal) Range: 3.5-5.1 NA 137 mmol/L (Normal) Range: 136-145 T BILI 0.40 mg/dL (Normal) Range: 0.20-1.00 ALT 11 U/L (Abnormal) Range: 12-78 ALK P 75 U/L (Normal) Range: 45-117 AST 16 U/L (Normal) Range: 15-37 CA 7.9 mg/dL (Abnormal) Range: 8.5-10.1 A/G 0.9 {RATIO} (Normal) Range: 0.9-2.4 GLOB 3.2 g/dL (Normal) Range: 2.3-3.5 ALB 2.9 g/dL (Abnormal) Range: 3.4-5.0 T PROT 6.1 g/dL (Abnormal) Range: 6.4-8.2 BUN/CRE 39.5 {RATIO} (Abnormal) Range: 10-20 Estimated CRCL 43.27 ml/min (Normal) EST GFR - AA 100 mL/min (Normal) Comments: GFR Calc EST GFR 82 mL/min (Normal) Comments: Non- GFR Calc CREAT,SERUM 0.73 mg/dL (Normal) Range: 0.55-1.02 Comments: The validity of the calculated GFR AND GFRAA in patients over70 years has not been determined. Clinical correlation isessential. BUN 29 mg/dL (Abnormal) Range: 7-18 GLU 133 mg/dL (Abnormal) Range: 70-110 Comments: Fasting Glucose result greater than or equal to 126 mg/dLsuggests DIABETES MELLITUS per A.D.A. criteria. 31-Vaj-918839:05 Urinalysis, Complete Comments: Order Date: 04/28/17Has pt arrived? YHow was Urine Obtained? [facility] [address] [place], [address] AMORPHOUS 1+ (Normal) MUCUS, URINE 0 SEEN {/hpf} (Normal) BACTERIA 1+ {/hpf} (Normal) SQUAM EPI 0-5 SEEN {/hpf} (Normal) Range: 5-10 RBC-UA 0 SEEN {/hpf} (Normal) Range: 0-5 WBC 10-25 SEEN {/hpf} (Normal) Range: 0-5 LEUK ESTERASE 100 /ul (Abnormal) OCCULT BLOOD-UR Negative /ul (Normal) NITRITE UR Negative (Normal) UROBILI Normal mg/dL (Normal) PROT DIPSTX Negative mg/dL (Normal) pH UR 5.0 (Normal) Range: 5.0 - 8.0 SP.GR. DIPSTX 1.020 (Normal) Range: 1.002-1.030 KETONE UR Negative mg/dL (Normal) BILIRUBIN URINE Negative mg/dL (Normal) GLUCOSE, UR Normal mg/dL (Normal) CLARITY Sl. Cloudy (Normal) COLOR Yellow (Normal) 55-Awx-800187:00 CBC W/Diff, Automated Comments: [facility] [address] [place], [address] Absolute Lymph 1.58 {X10_3/ul} (Normal) Range: 0.83-4.51 Absolute Neut 21.6 {X10_3/uL} (Abnormal) Range: 2.0-7.7 IM GRAN % 0.400 % (Normal) Range: 0.0-0.9 Comments: IG% - Immature Granulocytes (promyelocytes, myelocytes andmetamyelocytes) > 1% indicates that a LEFT SHIFT is Present. BASO% 0.1 % (Normal) Range: 0-1 EO% 0.3 % (Normal) Range: 0-5 MONO% 6.5 % (Normal) Range: 0-10 LY% 6.3 % (Abnormal) Range: 19-41 NEUT% 86.4 % (Abnormal) Range: 47-70 MPV 9.7 fL (Normal) Range: 6.2-12.0 PLT 528 K/mm3 (Abnormal) Range: 150-450 RDW SD 50.1 fL (Abnormal) Range: 35.1-43.9 RDW CV 13.7 % (Normal) Range: 11.6-14.6 MCHC 31.2 {g/gl} (Abnormal) Range: 32-36 MCH 31.3 pg (Normal) Range: 27.0-32.0 MCV 100.3 fL (Abnormal) Range: 81-99 HCT 39.1 % (Normal) Range: 37-47 HGB 12.2 g/dL (Normal) Range: 12.0-15.0 RBC 3.90 {M/mm3} (Abnormal) Range: 4.2-5.4 WBC 25.0 K/mm3 (Abnormal) Range: 4.4-11.0 83-Jmv-533204:00 Lactic Acid Comments: Yes/No query for Sepsis Lactate Rule [facility] [address] [place], [place], [id number] LACTIC ACID 1.6 mmol/L (Normal) Range: 0.4-2.0 29-Xdj-201552:00 Partial Thromboplast Time Comments: [facility] [address] [place], [address] PTT 22.4 s (Abnormal) Range: 24.1-36.2 57-Upr-855324:00 Prothrombin Time w/INR Comments: [address] [place], [place], [address] INR 1.0 (Normal) PROTIME 12.8 s (Normal) Range: 11.7-14.9 67-Pwk-80293:50 Miscellaneous Lab Procedure Comments: Comments: [id number]; URINE TOX; RUN LOWEST TEST IN LABCORPTest(s) Ordered: [id number]; URINE TOX; RUN LOWEST TEST IN [facility] [address], [id number] [facility] [place] Comments: [id number] 6+OXYCODONE-BUND (ng/mL)DRUG RESULT SCREEN CUTOFF____ Amphetamines,Urine Negat LAB (Normal) ananth ng/mL 1000Amphetamine test includes Amphetamine and Methamphetamine.Barbiturates Negative ng/mL 200Benzodiazepines Negative ng/mL 200Cannabinoid TEST Negative ng/mL 20Cocaine (Metab) Negative ng/mL 300Opiates Positive ng/mL 300 Opiates test includes Codeine, Morphine, Hydromorphone, [place] codone.Please Note:Confirmation performed by Mass SpectrometryCodeine Negative 300Morphine Positive Morphine Confirm >3000 ng/mL 300Hydromor phone Negative 300Hydrocodone Negative 300Oxycodone/Oxymorphone,Urine Negative ng/mL 300 Test includes Oxydodone and Oxymorphone. TESTING PERFORMED AT [facility]. ORIGINAL REPORT ON FILE IN LAB CONTAINS ADDITIONAL TEST SITE INFORMATION. :50 Urine Drug Screen (VISTA) Comments: Comments: [id number]; URINE TOX; RUN LOWEST TEST IN LABCOList of Drugs Taken or Suspected? [facility] [address], [address] THC NEGATIVE (Normal) PCP NEGATIVE (Normal) OPIATES POSITIVE (Abnormal) METHADONE NEGATIVE (Normal) ECSTACY NEGATIVE (Normal) COCAINE NEGATIVE (Normal) BENZODIAZIPINE NEGATIVE (Normal) BARBITIURATES NEGATIVE (Normal) AMPHETAMINES NEGATIVE (Normal) VISTA UDS PH 6 (Normal) TO BE CONFIRMED (Normal) Comments: CONFIRMATORY TESTING FOR ALL POSITIVE URINE DRUG SCREENRESULTS WILL ONLY BE SENT OUT UPON PHYSICIAN ORDER.VISTA Urine Drug Screen methods provide only preliminaryanalytical test results. A more specific alternate chemicalmethod must be used in order to obtain a confirmedanalytical result. Gas chromatography/mass spectrometery(GC/MS) is the preferred confirmatory method. Clinicalconsideration and profe ssional judgement should be appliedto any drug of abuse test result, particularly whenpreliminary positive results are used.URINE TCA TESTING MUST BE ORDERED SEPARATELY. USE TESTMNEMONIC: [facility] :00 Basic Metabolic Profile (BMP) Comments: 'TROP' Serial specimen #1, #2, #3, or #4: 1[facility] [address] [place], [place], [address] GAP 10 (Normal) Range: 5-15 CO2 28.0 mmol/L (Normal) Range: 21.0-32.0 CL 106 mmol/L (Normal) Range: 98-107 K 3.8 mmol/L (Normal) Range: 3.5-5.1 NA 144 mmol/L (Normal) Range: 136-145 CA 8.6 mg/dL (Normal) Range: 8.5-10.1 BUN/CRE 21.2 {RATIO} (Abnormal) Range: 10-20 Estimated CRCL 43.27 ml/min (Normal) EST GFR - AA 123 mL/min (Normal) Comments: GFR Calc EST GFR 101 mL/min (Normal) Comments: Non- GFR Calc CREAT,SERUM 0.61 mg/dL (Normal) Range: 0.55-1.02 Comments: The validity of the calculated GFR AND GFRAA in patients over70 years has not been determined. Clinical correlation isessential. BUN 13 mg/dL (Normal) Range: 7-18 GLU 113 mg/dL (Abnormal) Range: 70-110 Comments: Fasting Glucose result from 110 to <126 mg/dLsuggests IMPAIRED HOMEOSTASIS per A.D.A. criteria. :00 CBC W/Diff, Automated Comments: [facility] [address] [place], [address] ; another doc Absolute Lymph 1.20 {X10_3/ul} (Normal) Range: 0.83-4.51 Absolute Neut 2.4 {X10_3/uL} (Normal) Range: 2.0-7.7 IM GRAN % 0.200 % (Normal) Range: 0.0-0.9 Comments: IG% - Immature Granulocytes (promyelocytes, myelocytes andmetamyelocytes) > 1% indicates that a LEFT SHIFT is Present. BASO% 0.2 % (Normal) Range: 0-1 EO% 0.5 % (Normal) Range: 0-5 MONO% 9.2 % (Normal) Range: 0-10 LY% 29.9 % (Normal) Range: 19-41 NEUT% 60.0 % (Normal) Range: 47-70 MPV 9.8 fL (Normal) Range: 6.2-12.0 PLT 188 K/mm3 (Normal) Range: 150-450 RDW SD 51.6 fL (Abnormal) Range: 35.1-43.9 RDW CV 15.6 % (Abnormal) Range: 11.6-14.6 MCHC 32.3 {g/gl} (Normal) Range: 32-36 MCH 30.0 pg (Normal) Range: 27.0-32.0 MCV 93.1 fL (Normal) Range: 81-99 HCT 43.1 % (Normal) Range: 37-47 HGB 13.9 g/dL (Normal) Range: 12.0-15.0 RBC 4.63 {M/mm3} (Normal) Range: 4.2-5.4 WBC 4.0 K/mm3 (Abnormal) Range: 4.4-11.0 :00 Lipase Comments: 'TROP' Serial specimen #1, #2, #3, or #4: [address] [place] [address] [id number] [place], [address] LIPASE 82 U/L (Normal) Range: 73-393 :00 Liver Profile Comments: 'TROP' Serial specimen #1, #2, #3, or #4: [address] [place] [address] [id number] [place], [address] D BILI 0.12 mg/dL (Normal) Range: 0.00-0.30 T BILI 0.50 mg/dL (Normal) Range: 0.20-1.00 ALT 13 U/L (Normal) Range: 12-78 ALK P 58 U/L (Normal) Range: 45-117 AST 6 U/L (Abnormal) Range: 15-37 GLOB 3.4 g/dL (Normal) Range: 2.3-3.5 ALB 3.7 g/dL (Normal) Range: 3.4-5.0 T PROT 7.1 g/dL (Normal) Range: 6.4-8.2 [id number] Troponin-I Comments: 'TROP' Serial specimen #1, #2, #3, or #4: 1[facility] [id number] [place], [place], [address] TROPONIN-I < 0.02 ng/mL (Normal) Comments: TROPONIN-I EXPECTED VALUES <0.05 NEGATIVE 0.06 - 0.59 AT RISK OF VT > OR = 0.60 SUGGEST VT [id number] Renal Profile Comments: Order Date: 01/17/17Order Info: [id number] - RENALOrder Info: [id number] - MGOrder Date: 01/17/17Order Info: [id number] - [facility] [id number] [place], [phone] CO2 31.0 mmol/L (Normal) Range: 21.0-32.0 CL 97 mmol/L (Abnormal) Range: 98-107 K 3.9 mmol/L (Normal) Range: 3.5-5.1 Comments: Moderate Hemolysis, Result may be falsely increased. NA 140 mmol/L (Normal) Range: 136-145 PHOS 4.2 mg/dL (Normal) Range: 2.5-4.9 CA 9.0 mg/dL (Normal) Range: 8.5-10.1 ALB 3.9 g/dL (Normal) Range: 3.4-5.0 BUN/CRE 26.3 {RATIO} (Abnormal) Range: 10-20 EST GFR - AA 133 mL/min (Normal) Comments: GFR Calc EST GFR 110 mL/min (Normal) Comments: Non- GFR Calc CREAT,SERUM 0.57 mg/dL (Normal) Range: 0.55-1.02 Comments: The validity of the calculated GFR AND GFRAA in patients over70 years has not been determined. Clinical correlation isessential. BUN 15 mg/dL (Normal) Range: 7-18 GLU 102 mg/dL (Normal) Range: 70-110 [id number] MAGNESIUM ([id number]) Comments: Order Date: 01/17/17Order Info: [id number] - RENALOrder Info: [id number] - MGOrder Date: 01/17/17Order Info: [id number] [facility] [id number] [place], [phone] MG 1.5 mg/dL (Abnormal) Range: 1.8-2.4 Comments: Moderate Hemolysis, Result may be falsely increased. [id number] CBC W/Diff, Automated Comments: [facility] [id number] [facility] [place], [address] Absolute Lymph 1.62 {X10_3/ul} (Normal) Range: 0.83-4.51 Absolute Neut 7.8 {X10_3/uL} (Abnormal) Range: 2.0-7.7 IM GRAN % 0.200 % (Normal) Range: 0.0-0.9 Comments: IG% - Immature Granulocytes (promyelocytes, myelocytes andmetamyelocytes) > 1% indicates that a LEFT SHIFT is Present. BASO% 0.3 % (Normal) Range: 0-1 EO% 0.5 % (Normal) Range: 0-5 MONO% 7.8 % (Normal) Range: 0-10 LY% 15.7 % (Abnormal) Range: 19-41 NEUT% 75.5 % (Abnormal) Range: 47-70 MPV 10.3 fL (Normal) Range: 6.2-12.0 PLT 389 K/mm3 (Normal) Range: 150-450 RDW SD 51.3 fL (Abnormal) Range: 35.1-43.9 RDW CV 14.7 % (Abnormal) Range: 11.6-14.6 MCHC 32.0 {g/gl} (Normal) Range: 32-36 MCH 30.6 pg (Normal) Range: 27.0-32.0 MCV 95.4 fL (Normal) Range: 81-99 HCT 45.9 % (Normal) Range: 37-47 HGB 14.7 g/dL (Normal) Range: 12.0-15.0 RBC 4.81 {M/mm3} (Normal) Range: 4.2-5.4 WBC 10.3 K/mm3 (Normal) Range: 4.4-11.0 61-Vfp-[id number]:25 Comprehensive Metabolic Profil Comments: 'TROP' Serial specimen #1, #2, #3, or #4: 1[facility] [address] [place], [place], [id number] GAP 10 (Normal) Range: 5-15 CO2 29.0 mmol/L (Normal) Range: 21.0-32.0 CL 103 mmol/L (Normal) Range: 98-107 K 3.0 mmol/L (Abnormal) Range: 3.5-5.1 NA 142 mmol/L (Normal) Range: 136-145 T BILI 0.50 mg/dL (Normal) Range: 0.20-1.00 ALT 13 U/L (Normal) Range: 12-78 ALK P 98 U/L (Normal) Range: 45-117 AST 15 U/L (Normal) Range: 15-37 CA 8.9 mg/dL (Normal) Range: 8.5-10.1 A/G 0.9 {RATIO} (Normal) Range: 0.9-2.4 GLOB 3.8 g/dL (Abnormal) Range: 2.3-3.5 ALB 3.6 g/dL (Normal) Range: 3.4-5.0 T PROT 7.4 g/dL (Normal) Range: 6.4-8.2 BUN/CRE 16.7 {RATIO} (Normal) Range: 10-20 Estimated CRCL 45.09 ml/min (Normal) EST GFR - AA 113 mL/min (Normal) Comments: GFR Calc EST GFR 93 mL/min (Normal) Comments: Non- GFR Calc CREAT,SERUM 0.66 mg/dL (Normal) Range: 0.55-1.02 Comments: The validity of the calculated GFR AND GFRAA in patients over70 years has not been determined. Clinical correlation isessential. BUN 11 mg/dL (Normal) Range: 7-18 GLU 122 mg/dL (Abnormal) Range: 70-110 Comments: Fasting Glucose result from 110 to <126 mg/dLsuggests IMPAIRED HOMEOSTASIS per A.D.A. criteria. [id number] Lipase Comments: 'TROP' Serial specimen #1, #2, #3, or #4: [address] [place] [address] [id number] [place], [address] LIPASE 52 U/L (Abnormal) Range: 73-393 08-Rve-193918:25 Partial Thromboplast Time Comments: [facility] [address] [place], [id number] PTT 32.0 s (Normal) Range: 24.1-36.2 11-Khj-901604:25 Prothrombin Time w/INR Comments: [facility] [address] [place], [id number] INR 1.0 (Normal) PROTIME 13.1 s (Normal) Range: 11.7-14.9 [id number]:25 Troponin-I Comments: 'TROP' Serial specimen #1, #2, #3, or #4: [address] [place] [address] [place], [address] TROPONIN-I 0.93 ng/mL (Abnormal) Comments: Critical Result(s) Called INDRA Tyson at: 12:03:5604 by: JAYDA CRAIG TROPONIN-I EXPECTED VALUES <0.05 NEGATIVE 0.06 - 0.59 AT RISK OF VT > OR = 0.60 SUGGEST VT [id number] Urinalysis, Complete Comments: How was Urine Obtained? PLANER FEEDER TO [facility] [address] [place], [id number] MUCUS, URINE 0 SEEN {/hpf} (Normal) BACTERIA 2+ {/hpf} (Normal) SQUAM EPI 0-5 SEEN {/hpf} (Normal) Range: 5-10 RBC-UA 0 SEEN {/hpf} (Normal) Range: 0-5 WBC 0-5 SEEN {/hpf} (Normal) Range: 0-5 LEUK ESTERASE 25 /ul (Abnormal) OCCULT BLOOD-UR Negative /ul (Normal) NITRITE UR Positive (Abnormal) UROBILI Normal mg/dL (Normal) PROT DIPSTX Negative mg/dL (Normal) pH UR 7.0 (Normal) Range: 5.0 - 8.0 SP.GR. DIPSTX 1.010 (Normal) Range: 1.002-1.030 KETONE UR Negative mg/dL (Normal) BILIRUBIN URINE Negative mg/dL (Normal) GLUCOSE, UR Normal mg/dL (Normal) CLARITY Sl. Cloudy (Normal) COLOR Yellow (Normal) 27-Wng-[id number]:09 CBC W/Diff, Automated Comments: [facility] [address] [place], [address] Absolute Lymph 1.33 {X10_3/ul} (Normal) Range: 0.83-4.51 Absolute Neut 3.7 {X10_3/uL} (Normal) Range: 2.0-7.7 IM GRAN % 0.200 % (Normal) Range: 0.0-0.9 Comments: IG% - Immature Granulocytes (promyelocytes, myelocytes andmetamyelocytes) > 1% indicates that a LEFT SHIFT is Present. BASO% 0.5 % (Normal) Range: 0-1 EO% 1.6 % (Normal) Range: 0-5 MONO% 8.0 % (Normal) Range: 0-10 LY% 23.5 % (Normal) Range: 19-41 NEUT% 66.2 % (Normal) Range: 47-70 MPV 10.1 fL (Normal) Range: 6.2-12.0 PLT 369 K/mm3 (Normal) Range: 150-450 RDW SD 49.3 fL (Abnormal) Range: 35.1-43.9 RDW CV 14.1 % (Normal) Range: 11.6-14.6 MCHC 31.3 {g/gl} (Abnormal) Range: 32-36 MCH 30.0 pg (Normal) Range: 27.0-32.0 MCV 96.2 fL (Normal) Range: 81-99 HCT 40.0 % (Normal) Range: 37-47 HGB 12.5 g/dL (Normal) Range: 12.0-15.0 RBC 4.16 {M/mm3} (Abnormal) Range: 4.2-5.4 WBC 5.7 K/mm3 (Normal) Range: 4.4-11.0 89-Ipi-[id number]:09 Comprehensive Metabolic Profil Comments: 'TROP' Serial specimen #1, #2, #3, or #4: 1[facility] [address] [place], [place], [id number] GAP 8 (Normal) Range: 5-15 CO2 33.0 mmol/L (Abnormal) Range: 21.0-32.0 CL 100 mmol/L (Normal) Range: 98-107 K 3.0 mmol/L (Abnormal) Range: 3.5-5.1 NA 141 mmol/L (Normal) Range: 136-145 T BILI 0.30 mg/dL (Normal) Range: 0.20-1.00 ALT 13 U/L (Normal) Range: 12-78 ALK P 82 U/L (Normal) Range: 45-117 AST 10 U/L (Abnormal) Range: 15-37 CA 8.4 mg/dL (Abnormal) Range: 8.5-10.1 A/G 0.9 {RATIO} (Normal) Range: 0.9-2.4 GLOB 3.5 g/dL (Normal) Range: 2.3-3.5 ALB 3.1 g/dL (Abnormal) Range: 3.4-5.0 T PROT 6.6 g/dL (Normal) Range: 6.4-8.2 BUN/CRE 21.6 {RATIO} (Abnormal) Range: 10-20 Estimated CRCL 45.09 ml/min (Normal) EST GFR - AA 152 mL/min (Normal) Comments: GFR Calc EST GFR 126 mL/min (Normal) Comments: Non- GFR Calc CREAT,SERUM 0.51 mg/dL (Abnormal) Range: 0.55-1.02 Comments: The validity of the calculated GFR AND GFRAA in patients over70 years has not been determined. Clinical correlation isessential. BUN 11 mg/dL (Normal) Range: 7-18 GLU 113 mg/dL (Abnormal) Range: 70-110 Comments: Fasting Glucose result from 110 to <126 mg/dLsuggests IMPAIRED HOMEOSTASIS per A.D.A. criteria. [id number]-Rxs-[id number]:09 Lactic Acid Comments: [facility] [address] [place], [id number] LACTIC ACID 1.5 mmol/L (Normal) Range: 0.4-2.0 :09 Lipase Comments: 'TROP' Serial specimen #1, #2, #3, or #4: [address] [place] [address] [place], [address] LIPASE 40 U/L (Abnormal) Range: 73-393 :09 Partial Thromboplast Time Comments: [facility] [address] [place], [address] PTT 38.3 s (Abnormal) Range: 24.1-36.2 :09 Prothrombin Time w/INR Comments: [facility] [address] [place], [id number] INR 1.3 (Normal) PROTIME 15.8 s (Abnormal) Range: 11.7-14.9 :09 Troponin-I Comments: 'TROP' Serial specimen #1, #2, #3, or #4: [address] [place] [address] [address] [place], [address] TROPONIN-I < 0.02 ng/mL (Normal) Comments: TROPONIN-I EXPECTED VALUES <0.05 NEGATIVE 0.06 - 0.59 AT RISK OF VT > OR = 0.60 SUGGEST VT 93-Ynu-[id number]:52 Potassium Comments: [facility] [address] [place], [id number] K 3.4 mmol/L (Abnormal) Range: 3.5-5.1 85-Osq-32463:10 Basic Metabolic Profile (BMP) Comments: DR AVINA ORDERED: BMP, CBC, MRSADR.SANJAY ORDERED: [facility] [address] [place], [id number] GAP 12 (Normal) Range: 5-15 CO2 27.0 mmol/L (Normal) Range: 21.0-32.0 CL 99 mmol/L (Normal) Range: 98-107 K 2.7 mmol/L (Abnormal) Range: 3.5-5.1 Comments: Critical Result(s) Called at: 10:30:38 11/14/2016 by:Aura Ch to [facility] NA 138 mmol/L (Normal) Range: 136-145 CA 8.4 mg/dL (Abnormal) Range: 8.5-10.1 BUN/CRE 13.0 {RATIO} (Normal) Range: 10-20 Estimated CRCL 45.09 ml/min (Normal) EST GFR - AA 107 mL/min (Normal) Comments: GFR Calc EST GFR 88 mL/min (Normal) Comments: Non- GFR Calc CREAT,SERUM 0.69 mg/dL (Normal) Range: 0.55-1.02 Comments: The validity of the calculated GFR AND GFRAA in patients over70 years has not been determined. Clinical correlation isessential. BUN 9 mg/dL (Normal) Range: 7-18 GLU 165 mg/dL (Abnormal) Range: 70-110 Comments: Fasting Glucose result greater than or equal to 126 mg/dLsuggests DIABETES MELLITUS per A.D.A. criteria. 77-Fgj-57528:10 CBC-Complete Blood Cnt No Diff Comments: DR AVINA ORDERED: BMP, CBC, MRSA ORDERED: ESTEBAN AVINA ORDERED: BMP, CBC, HANSADRNIGEL ORDERED: [facility] [address] [place], [place], [address] MPV 10.8 fL (Normal) Range: 6.2-12.0 PLT 362 K/mm3 (Normal) Range: 150-450 RDW SD 48.2 fL (Abnormal) Range: 35.1-43.9 RDW CV 14.1 % (Normal) Range: 11.6-14.6 MCHC 32.6 {g/gl} (Normal) Range: 32-36 MCH 31.5 pg (Normal) Range: 27.0-32.0 MCV 96.8 fL (Normal) Range: 81-99 HCT 42.7 % (Normal) Range: 37-47 HGB 13.9 g/dL (Normal) Range: 12.0-15.0 RBC 4.41 {M/mm3} (Normal) Range: 4.2-5.4 WBC 7.1 K/mm3 (Normal) Range: 4.4-11.0 :10 MRSA/SAID SCREEN Comments: [facility] [address] [place], [place], [id number] ; another doc MRSA+SAID SCRN See Note (Normal) Comments: DR AVINA ORDERED: BMP, CBC, MRSA ORDERED: K MRSA/SAID SCRNS. AUREUS S. aureus NegativeMRSA MRSA Negative :09 MAGNESIUM ([id number]) Comments: PATIENT NOT FASTINGPERFORMED BY: [facility]Co[facility] ClinicUunwkf1208 [facility] [id number] Magnesium, Serum 1.7 mg/dL (Normal) Range: 1.6-2.3 57-Jeh-404284:09 Metabolic Panel, Basic Comments: PATIENT NOT FASTINGPERFORMED BY: [facility] [address]vrnzu7776 [facility] [id number] ([id number]) Calcium, Serum 8.7 mg/dL (Normal) Range: 8.7-10.3 Carbon Dioxide, Total 24 mmol/L (Normal) Range: 18-29 Chloride, Serum 101 mmol/L (Normal) Range: 96-106 Potassium, Serum 3.8 mmol/L (Normal) Range: 3.5-5.2 Sodium, Serum 145 mmol/L (Abnormal) Range: 134-144 BUN/Creatinine Ratio 16 (Normal) Range: 11-26 eGFR If Africn Am 111 mL/min/1.73 (Normal) eGFR If NonAfricn Am 96 mL/min/1.73 (Normal) Creatinine, Serum 0.50 mg/dL (Abnormal) Range: 0.57-1.00 BUN 8 mg/dL (Normal) Range: 8-27 Glucose, Serum 97 mg/dL (Normal) Range: 65-99 56-Osn-890953:45 Urinalysis, Complete Comments: How was Urine Obtained? PLANER FEEDER [facility] [address] [place], [place], [id number] MUCUS, URINE RARE {/hpf} (Normal) BACTERIA RARE {/hpf} (Normal) SQUAM EPI 0-5 SEEN {/hpf} (Normal) Range: 5-10 RBC-UA 0-5 SEEN {/hpf} (Normal) Range: 0-5 WBC 0-5 SEEN {/hpf} (Normal) Range: 0-5 LEUK ESTERASE 25 /ul (Abnormal) OCCULT BLOOD-UR Negative /ul (Normal) NITRITE UR Negative (Normal) UROBILI 1 mg/dL (Abnormal) PROT DIPSTX 15 mg/dL (Abnormal) pH UR 7.0 (Normal) Range: 5.0 - 8.0 SP.GR. DIPSTX 1.010 (Normal) Range: 1.002-1.030 KETONE UR 50 mg/dL (Abnormal) BILIRUBIN URINE Negative mg/dL (Normal) GLUCOSE, UR Normal mg/dL (Normal) CLARITY Cloudy (Normal) COLOR Yellow (Normal) 89-[id number]:53 CBC W/Diff, Automated Comments: [facility] [address] [place], [place], [id number] Absolute Lymph 1.08 {X10_3/ul} (Normal) Range: 0.83-4.51 Absolute Neut 4.2 {X10_3/uL} (Normal) Range: 2.0-7.7 IM GRAN % 0.000 % (Normal) Range: 0.0-0.9 Comments: IG% - Immature Granulocytes (promyelocytes, myelocytes andmetamyelocytes) > 1% indicates that a LEFT SHIFT is Present. BASO% 0.8 % (Normal) Range: 0-1 EO% 2.8 % (Normal) Range: 0-5 MONO% 10.5 % (Abnormal) Range: 0-10 LY% 17.6 % (Abnormal) Range: 19-41 NEUT% 68.3 % (Normal) Range: 47-70 MPV 9.7 fL (Normal) Range: 6.2-12.0 PLT 502 K/mm3 (Abnormal) Range: 150-450 RDW SD 48.6 fL (Abnormal) Range: 35.1-43.9 RDW CV 14.2 % (Normal) Range: 11.6-14.6 MCHC 33.5 {g/gl} (Normal) Range: 32-36 MCH 32.7 pg (Abnormal) Range: 27.0-32.0 MCV 97.6 fL (Normal) Range: 81-99 HCT 40.6 % (Normal) Range: 37-47 HGB 13.6 g/dL (Normal) Range: 12.0-15.0 RBC 4.16 {M/mm3} (Abnormal) Range: 4.2-5.4 WBC 6.1 K/mm3 (Normal) Range: 4.4-11.0 81-Gmg-[id number]:53 Comprehensive Metabolic Profil Comments: [facility] [address] [place], [address] GAP 12 (Normal) Range: 5-15 CO2 27.0 mmol/L (Normal) Range: 21.0-32.0 CL 105 mmol/L (Normal) Range: 98-107 K 2.9 mmol/L (Abnormal) Range: 3.5-5.1 NA 144 mmol/L (Normal) Range: 136-145 T BILI 0.60 mg/dL (Normal) Range: 0.20-1.00 ALT 11 U/L (Abnormal) Range: 12-78 ALK P 84 U/L (Normal) Range: 45-117 AST 11 U/L (Abnormal) Range: 15-37 CA 8.7 mg/dL (Normal) Range: 8.5-10.1 A/G 0.9 {RATIO} (Normal) Range: 0.9-2.4 GLOB 3.6 g/dL (Abnormal) Range: 2.3-3.5 ALB 3.4 g/dL (Normal) Range: 3.4-5.0 T PROT 7.0 g/dL (Normal) Range: 6.4-8.2 BUN/CRE 15.9 {RATIO} (Normal) Range: 10-20 Estimated CRCL 45.09 ml/min (Normal) EST GFR - AA 120 mL/min (Normal) Comments: GFR Calc EST GFR 99 mL/min (Normal) Comments: Non- GFR Calc CREAT,SERUM 0.63 mg/dL (Normal) Range: 0.55-1.02 Comments: The validity of the calculated GFR AND GFRAA in patients over70 years has not been determined. Clinical correlation isessential. BUN 10 mg/dL (Normal) Range: 7-18 GLU 118 mg/dL (Abnormal) Range: 70-110 Comments: Fasting Glucose result from 110 to <126 mg/dLsuggests IMPAIRED HOMEOSTASIS per A.D.A. criteria. :53 Lactic Acid Comments: [facility] [address] [place], [place], [address] LACTIC ACID 2.2 mmol/L (Abnormal) Range: 0.4-2.0 :53 Partial Thromboplast Time Comments: [facility] [address] [place], [place], [address] PTT 32.1 s (Normal) Range: 24.1-36.2 :53 Prothrombin Time w/INR Comments: [facility] [address] [place], [place], [address] INR 1.0 (Normal) PROTIME 13.2 s (Normal) Range: 11.7-14.9 :54 Basic Metabolic Profile (BMP) Comments: [facility] [address] [place], [place], [address] GAP 10 (Normal) Range: 5-15 CO2 29.0 mmol/L (Normal) Range: 21.0-32.0 CL 104 mmol/L (Normal) Range: 98-107 K 3.0 mmol/L (Abnormal) Range: 3.5-5.1 NA 143 mmol/L (Normal) Range: 136-145 CA 8.4 mg/dL (Abnormal) Range: 8.5-10.1 BUN/CRE 17.4 {RATIO} (Normal) Range: 10-20 Estimated CRCL 45.09 ml/min (Normal) EST GFR - AA 132 mL/min (Normal) Comments: GFR Calc EST GFR 109 mL/min (Normal) Comments: Non- GFR Calc CREAT,SERUM 0.58 mg/dL (Normal) Range: 0.55-1.02 Comments: The validity of the calculated GFR AND GFRAA in patients over70 years has not been determined. Clinical correlation isessential. BUN 10 mg/dL (Normal) Range: 7-18 GLU 160 mg/dL (Abnormal) Range: 70-110 Comments: Fasting Glucose result greater than or equal to 126 mg/dLsuggests DIABETES MELLITUS per A.D.A. criteria. :54 CBC-Complete Blood Cnt No Diff Comments: [facility] [address] [place], [place], [id number] MPV 10.1 fL (Normal) Range: 6.2-12.0 PLT 280 K/mm3 (Normal) Range: 150-450 RDW SD 52.0 fL (Abnormal) Range: 35.1-43.9 RDW CV 14.6 % (Normal) Range: 11.6-14.6 MCHC 33.3 {g/gl} (Normal) Range: 32-36 MCH 33.7 pg (Abnormal) Range: 27.0-32.0 MCV 101.1 fL (Abnormal) Range: 81-99 HCT 37.8 % (Normal) Range: 37-47 HGB 12.6 g/dL (Normal) Range: 12.0-15.0 RBC 3.74 {M/mm3} (Abnormal) Range: 4.2-5.4 WBC 9.1 K/mm3 (Normal) Range: 4.4-11.0 :54 Hemoglobin A1c Comments: [facility] [address] [place], [place], [id number] HGB A1C 6.4 % (Abnormal) Range: 4.2-6.3 :54 Liver Profile Comments: [facility] [address] [place], [place], [id number] D BILI 0.27 mg/dL (Normal) Range: 0.00-0.30 T BILI 0.80 mg/dL (Normal) Range: 0.20-1.00 ALT 12 U/L (Normal) Range: 12-78 ALK P 82 U/L (Normal) Range: 45-117 AST 10 U/L (Abnormal) Range: 15-37 GLOB 3.5 g/dL (Normal) Range: 2.3-3.5 ALB 3.2 g/dL (Abnormal) Range: 3.4-5.0 T PROT 6.7 g/dL (Normal) Range: 6.4-8.2 :54 MRSA/SAID SCREEN Comments: [facility] [address] [place], [address] MRSA+SAID SCRN See Note (Normal) Comments: MRSA/SAID SCRNS. AUREUS S. aureus NegativeMRSA MRSA Negative :54 Partial Thromboplast Time Comments: [place] [address] [place], [address] PTT 40.7 s (Abnormal) Range: 24.1-36.2 :54 Prothrombin Time w/INR Comments: [place] [address] [place], [address] INR 1.1 (Normal) PROTIME 14.3 s (Normal) Range: 11.7-14.9 :55 CBC W/Diff, Automated Comments: [place] [address] [place], [address] Absolute Lymph 1.18 {X10_3/ul} (Normal) Range: 0.83-4.51 Absolute Neut 11.7 {X10_3/uL} (Abnormal) Range: 2.0-7.7 IM GRAN % 0.400 % (Normal) Range: 0.0-0.9 Comments: IG% - Immature Granulocytes (promyelocytes, myelocytes andmetamyelocytes) > 1% indicates that a LEFT SHIFT is Present. BASO% 0.1 % (Normal) Range: 0-1 EO% 0.0 % (Normal) Range: 0-5 MONO% 6.6 % (Normal) Range: 0-10 LY% 8.5 % (Abnormal) Range: 19-41 NEUT% 84.4 % (Abnormal) Range: 47-70 MPV 10.1 fL (Normal) Range: 6.2-12.0 PLT 318 K/mm3 (Normal) Range: 150-450 RDW SD 52.7 fL (Abnormal) Range: 35.1-43.9 RDW CV 14.9 % (Abnormal) Range: 11.6-14.6 MCHC 32.4 {g/gl} (Normal) Range: 32-36 MCH 32.7 pg (Abnormal) Range: 27.0-32.0 MCV 100.8 fL (Abnormal) Range: 81-99 HCT 40.1 % (Normal) Range: 37-47 HGB 13.0 g/dL (Normal) Range: 12.0-15.0 RBC 3.98 {M/mm3} (Abnormal) Range: 4.2-5.4 WBC 13.8 K/mm3 (Abnormal) Range: 4.4-11.0 95-Fxd-34590:55 Comprehensive Metabolic Profil Comments: [facility] [address] [place], [address] GAP 12 (Normal) Range: 5-15 CO2 24.0 mmol/L (Normal) Range: 21.0-32.0 CL 102 mmol/L (Normal) Range: 98-107 K 4.2 mmol/L (Normal) Range: 3.5-5.1 NA 138 mmol/L (Normal) Range: 136-145 T BILI 0.30 mg/dL (Normal) Range: 0.20-1.00 ALT 15 U/L (Normal) Range: 12-78 ALK P 73 U/L (Normal) Range: 45-117 AST 5 U/L (Abnormal) Range: 15-37 CA 8.8 mg/dL (Normal) Range: 8.5-10.1 A/G 1.4 {RATIO} (Normal) Range: 0.9-2.4 Comments: ADDENDA: another doctor GLOB 2.8 g/dL (Normal) Range: 2.3-3.5 ALB 3.9 g/dL (Normal) Range: 3.4-5.0 T PROT 6.7 g/dL (Normal) Range: 6.4-8.2 BUN/CRE 23.4 {RATIO} (Abnormal) Range: 10-20 EST GFR - AA 95 mL/min (Normal) Comments: GFR Calc EST GFR 78 mL/min (Normal) Comments: Non- GFR Calc CREAT,SERUM 0.77 mg/dL (Normal) Range: 0.55-1.02 Comments: The validity of the calculated GFR AND GFRAA in patients over70 years has not been determined. Clinical correlation isessential. BUN 18 mg/dL (Normal) Range: 7-18 GLU 262 mg/dL (Abnormal) Range: 70-110 Comments: Glucose result greater than or equal to 200 mg/dLsuggests DIABETES MELLITUS per A.D.A. criteria. [id number]-Tke-[id number]:22 MAGNESIUM ([id number]) Comments: PATIENT NOT FASTINGPERFORMED BY: VoteItSaint [facility]–Barry RoadCgmiht0683 [facility] Centerin [place] [id number] Magnesium, Serum 1.5 mg/dL (Abnormal) Range: 1.6-2.3 :22 POTASSIUM SERUM (58662) Comments: PATIENT NOT FASTINGPERFORMED BY: LabMcl[facility] Region[address] [place]in [place] [id number] Potassium, Serum 4.0 mmol/L (Normal) Range: 3.5-5.2 10-Fwz-127163:13 Rapid Flu (81955 x 2) Influenza A Ag negative (Normal) :42 VITAMIN B12 AND FOLATES Comments: PATIENT NOT FASTINGPERFORMED BY: LabSaint [facility]–Barry RoadZtmdqk2145 [facility] [id number] ([id number]) Folate (Folic Acid), Serum 18.3 ng/mL (Normal) Comments: A serum folate concentration of less than 3.1 ng/mL isconsidered to represent clinical deficiency. Vitamin B12 650 pg/mL (Normal) Range: 211-946 :42 TSH (27465) Comments: PATIENT NOT FASTINGPERFORMED BY: LabM[facility] Region6370 [facility] [id number] TSH 1.610 {uIU/mL} (Normal) Range: 0.450-4.500 :42 Metabolic Panel, Comprehensive Comments: PATIENT NOT FASTINGPERFORMED BY: Only-apartmentsCarrier ClinicSsgksw1002 [facility] [id number] ([id number]) ALT (SGPT) 9 [iU]/L (Normal) Range: 0-32 AST (SGOT) 11 [iU]/L (Normal) Range: 0-40 Alkaline Phosphatase, S 62 [iU]/L (Normal) Range: 39-117 Bilirubin, Total 0.4 mg/dL (Normal) Range: 0.0-1.2 A/G Ratio 2.4 (Normal) Range: 1.1-2.5 Globulin, Total 1.9 g/dL (Normal) Range: 1.5-4.5 Albumin, Serum 4.5 g/dL (Normal) Range: 3.5-4.8 Protein, Total, Serum 6.4 g/dL (Normal) Range: 6.0-8.5 Calcium, Serum 8.9 mg/dL (Normal) Range: 8.7-10.3 Carbon Dioxide, Total 24 mmol/L (Normal) Range: 18-29 Chloride, Serum 97 mmol/L (Normal) Range: 96-106 Potassium, Serum 3.4 mmol/L (Abnormal) Range: 3.5-5.2 Comments: Client Requested Flag Sodium, Serum 142 mmol/L (Normal) Range: 134-144 BUN/Creatinine Ratio 30 (Abnormal) Range: 11-26 eGFR If Africn Am 101 mL/min/1.73 (Normal) eGFR If NonAfricn Am 88 mL/min/1.73 (Normal) Creatinine, Serum 0.66 mg/dL (Normal) Range: 0.57-1.00 BUN 20 mg/dL (Normal) Range: 8-27 Glucose, Serum 91 mg/dL (Normal) Range: 65-99 :26 HgA1C , Office (95833) HgA1C , Office 6.8 % (Normal) Range: 4.6 - 7.1 :26 Blood Glucose , Office (42489) Blood Glucose , Office 110 (Normal) :10 Culture, Body Fluid Comments: [facility] [id number] [facility] [place], [address] ; Another doc CUBF See Note (Normal) Comments: List Antibiotics Last 48 Hours? UNKList Antibiotics to be Started? UNKComments: LEFT KNEEGram StainCentrifuged Specimen? Culture performed on centrifuged specimen Gram Stain 2+ Red Blood Donya ls Rare White Blood Cells No organisms seen Body Fluid CultNO GROWTH IN 14 DAYS Cult, AnaerobicNo growth in 5 days. :10 Synovial Fluid RBC, WBC AND Comments: LEFT KNEELEFT KNEEM[facility] [id number] [facility] [place], [address] ; another doc Diff PATH COM/SYFL May follow (Normal) OTHER CELL /SYN 1 % (Normal) MONO 2 % (Normal) LYMPH 4 % (Normal) NEUTROPHIL 93 % (Abnormal) Range: 0-25 SYBF MN WBC% 29.8 % (Normal) SYBF PMN WBC# 0.179 {10_3/ul} (Normal) SYBF PMN WBC% 70.2 % (Normal) SYNOVIAL WBC 0.2550 {10_3uL} (Abnormal) Range: 0.000-0.002 SYNOVIAL RBC 1072 /mm3 (Abnormal) SYN Tot Cell Ct 0.2650 {10_3_uL} (Abnormal) Range: 0.000-0.000 Comments: This is the Total Number of Nucleated Cell Types in the BodyFluid. SYNOVIAL KELLY. Sl Cl (Normal) SYNOVIAL COLOR Yellow (Normal) SYNOVIAL SOURCE LKNEE (Normal) :30 Crystals, Body Fluid Comments: [facility] [id number] [place], [address] PATH REV Reviewed (Normal) SOURCE/BF SYNOVIAL (Normal) CRYSTALS/BF SEE PATH REV (Normal) :30 Culture, Body Fluid Comments: [facility] [id number] [place], [address] CUBF See Note (Normal) Comments: List Antibiotics Last 48 Hours? UNKList Antibiotics to be Started? UNKComments: LEFT KNEEGram StainCentrifuged Specimen? Culture performed on centrifuged specimen Gram Stain 2+ Red Blood Donya ls No White Blood Cells No organisms seen Body Fluid CultNO GROWTH IN 14 DAYS Cult, AnaerobicNo growth in 5 days. :48 CBC W/Diff, Automated Comments: [facility] [id number] [place], [address] Absolute Lymph 2.23 {X10_3/ul} (Normal) Range: 0.83-4.51 Absolute Neut 3.8 {X10_3/uL} (Normal) Range: 2.0-7.7 IM GRAN % 0.100 % (Normal) Range: 0.0-0.9 Comments: IG% - Immature Granulocytes (promyelocytes, myelocytes andmetamyelocytes) > 1% indicates that a LEFT SHIFT is Present. BASO% 0.7 % (Normal) Range: 0-1 EO% 3.7 % (Normal) Range: 0-5 MONO% 9.3 % (Normal) Range: 0-10 LY% 31.9 % (Normal) Range: 19-41 NEUT% 54.3 % (Normal) Range: 47-70 MPV 10.2 fL (Normal) Range: 6.2-12.0 PLT 315 K/mm3 (Normal) Range: 150-450 RDW SD 55.8 fL (Abnormal) Range: 35.1-43.9 RDW CV 15.6 % (Abnormal) Range: 11.6-14.6 MCHC 32.3 {g/gl} (Normal) Range: 32-36 MCH 32.3 pg (Abnormal) Range: 27.0-32.0 MCV 100.0 fL (Abnormal) Range: 81-99 HCT 40.6 % (Normal) Range: 37-47 HGB 13.1 g/dL (Normal) Range: 12.0-15.0 RBC 4.06 {M/mm3} (Abnormal) Range: 4.2-5.4 WBC 7.0 K/mm3 (Normal) Range: 4.4-11.0 [id number] Comprehensive Metabolic Profil Comments: [facility] [id number] [place], [address] GAP 10 (Normal) Range: 5-15 CO2 29.0 mmol/L (Normal) Range: 21.0-32.0 CL 104 mmol/L (Normal) Range: 98-107 K 3.4 mmol/L (Abnormal) Range: 3.5-5.1 NA 143 mmol/L (Normal) Range: 136-145 T BILI 0.60 mg/dL (Normal) Range: 0.20-1.00 ALT 19 U/L (Normal) Range: 12-78 ALK P 69 U/L (Normal) Range: 50-136 AST 12 U/L (Abnormal) Range: 15-37 CA 8.8 mg/dL (Normal) Range: 8.5-10.1 A/G 1.5 {RATIO} (Normal) Range: 0.9-2.4 GLOB 2.9 g/dL (Normal) Range: 2.3-3.5 ALB 4.4 g/dL (Normal) Range: 3.4-5.0 T PROT 7.3 g/dL (Normal) Range: 6.4-8.2 BUN/CRE 24.5 {RATIO} (Abnormal) Range: 10-20 EST GFR - AA 106 mL/min (Normal) Comments: GFR Calc EST GFR 88 mL/min (Normal) Comments: Non- GFR Calc CREAT,SERUM 0.70 mg/dL (Normal) Range: 0.55-1.20 Comments: The validity of the calculated GFR AND GFRAA in patients over70 years has not been determined. Clinical correlation isessential. BUN 17 mg/dL (Normal) Range: 7-18 GLU 99 mg/dL (Normal) Range: 70-110 36-Bcv-23363:32 Comprehensive Metabolic Profil Comments: [facility] [address] [place], [address] GAP 8 (Normal) Range: 5-15 CO2 31.0 mmol/L (Normal) Range: 21.0-32.0 CL 104 mmol/L (Normal) Range: 98-107 K 3.0 mmol/L (Abnormal) Range: 3.5-5.1 NA 143 mmol/L (Normal) Range: 136-145 T BILI 0.40 mg/dL (Normal) Range: 0.20-1.00 ALT 18 U/L (Normal) Range: 12-78 ALK P 55 U/L (Normal) Range: 50-136 AST 11 U/L (Abnormal) Range: 15-37 CA 8.1 mg/dL (Abnormal) Range: 8.5-10.1 A/G 1.2 {RATIO} (Normal) Range: 0.9-2.4 GLOB 3.0 g/dL (Normal) Range: 2.3-3.5 ALB 3.7 g/dL (Normal) Range: 3.4-5.0 T PROT 6.7 g/dL (Normal) Range: 6.4-8.2 BUN/CRE 27.1 {RATIO} (Abnormal) Range: 10-20 EST GFR - AA 106 mL/min (Normal) Comments: GFR Calc EST GFR 87 mL/min (Normal) Comments: Non- GFR Calc CREAT,SERUM 0.70 mg/dL (Normal) Range: 0.55-1.20 Comments: The validity of the calculated GFR AND GFRAA in patients over70 years has not been determined. Clinical correlation isessential. BUN 19 mg/dL (Abnormal) Range: 7-18 GLU 110 mg/dL (Normal) Range: 70-110 Comments: Fasting Glucose result from 110 to <126 mg/dLsuggests IMPAIRED HOMEOSTASIS per A.D.A. criteria. [id number]-Tdg-[id number]:32 Culture, Urine Comments: [facility] [address] [facility] [address] [place], [place], [address] CUUR See Note (Normal) Comments: Urine CultureORGANISM 1: Escherichia coliColony Count >100,000 Escherichia coli: REACTION Amoxacillin/Clavulanic Acid $ <=2 S Am picillin $ <=2 S Ampicillin/Sulbactam $ <=2 S Cefazolin $ <=4 S Cefepime $ < =1 S Ceftriaxone $ <=1 S Ciprofloxacin $ <=0.25 S ESBL - Ertapenim $$$ <=0.5 S Gentamicin $ <=1 S Imipenem *NF <=0.25 S Levofloxacin $ <=0.12 S Nitrof urantoin $ <=16 S Piperacillin/Tazobactam $$ <=4 S Tobramycin $ <=1 S Trimethoprim/Sulfametho $ <=20 S(NF) indicates non-formulary drug at [facility]. Approval by Infectious Disease Specialist required before non- formulary drugs may be ordered and/or dispensed. [id number]-Ugr-[id number]:08 Urinalysis, Complete Comments: How was Urine Obtained? CLEAN [facility] [address] [facility] [address] [place], [place], [id number] MUCUS, URINE 0 SEEN {/hpf} (Normal) BACTERIA 1+ {/hpf} (Normal) SQUAM EPI 0-5 SEEN {/hpf} (Normal) Range: 5-10 RBC-UA 0 SEEN {/hpf} (Normal) Range: 0-5 WBC 25-50 SEEN {/hpf} (Normal) Range: 0-5 LEUK ESTERASE 500 /ul (Abnormal) OCCULT BLOOD-UR Negative /ul (Normal) NITRITE UR Positive (Abnormal) UROBILI Normal mg/dL (Normal) PROT DIPSTX 30 mg/dL (Abnormal) pH UR 6.0 (Normal) Range: 5.0 - 8.0 SP.GR. DIPSTX 1.020 (Normal) Range: 1.002-1.030 KETONE UR Negative mg/dL (Normal) BILIRUBIN URINE Negative mg/dL (Normal) GLUCOSE, UR Normal mg/dL (Normal) CLARITY Sl. Cloudy (Normal) COLOR Yellow (Normal) :56 POTASSIUM SERUM (73005) Comments: PATIENT NOT FASTINGPERFORMED BY: BRCK IncMiners' Colfax Medical CenterZhelwo0321 [facility] [id number] Potassium, Serum 4.4 mmol/L (Normal) Range: 3.5-5.2 :56 MAGNESIUM (97787) Comments: PATIENT NOT FASTINGPERFORMED BY: [employer] Hcyjdc1309 [facility] [id number] Magnesium, Serum 1.5 mg/dL (Abnormal) Range: 1.6-2.3 :29 CBC WITH MANUAL DIFF Comments: PATIENT WAS FASTINGPERFORMED BY: BRCK IncCarrier ClinicZcbqdy5645 [facility] [id number] Information: [id number] ([id number]) Immature Grans (Abs) 0.0 {x10E3/uL} (Normal) Range: 0.0-0.1 Immature Granulocytes 0 % (Normal) Baso (Absolute) 0.0 {x10E3/uL} (Normal) Range: 0.0-0.2 Eos (Absolute) 0.2 {x10E3/uL} (Normal) Range: 0.0-0.4 Monocytes(Absolute) 0.5 {x10E3/uL} (Normal) Range: 0.1-0.9 Lymphs (Absolute) 1.4 {x10E3/uL} (Normal) Range: 0.7-3.1 Neutrophils (Absolute) 3.7 {x10E3/uL} (Normal) Range: 1.4-7.0 Basos 0 % (Normal) Eos 3 % (Normal) Monocytes 8 % (Normal) Lymphs 24 % (Normal) Neutrophils 65 % (Normal) Platelets 276 {x10E3/uL} (Normal) Range: 150-379 RDW 14.0 % (Normal) Range: 12.3-15.4 MCHC 33.4 g/dL (Normal) Range: 31.5-35.7 MCH 31.9 pg (Normal) Range: 26.6-33.0 MCV 96 fL (Normal) Range: 79-97 Hematocrit 36.2 % (Normal) Range: 34.0-46.6 Hemoglobin 12.1 g/dL (Normal) Range: 11.1-15.9 RBC 3.79 {x10E6/uL} (Normal) Range: 3.77-5.28 WBC 5.8 {x10E3/uL} (Normal) Range: 3.4-10.8 0-Lwe-957231:15 CBC, Platelets & Auto Diff Comments: PATIENT NOT FASTINGPERFORMED BY: [facility] Bfmlhy9472 [facility] [id number] ([id number]) Immature Grans (Abs) 0.0 {x10E3/uL} (Normal) Range: 0.0-0.1 Immature Granulocytes 0 % (Normal) Baso (Absolute) 0.0 {x10E3/uL} (Normal) Range: 0.0-0.2 Eos (Absolute) 0.1 {x10E3/uL} (Normal) Range: 0.0-0.4 Monocytes(Absolute) 1.0 {x10E3/uL} (Abnormal) Range: 0.1-0.9 Lymphs (Absolute) 2.9 {x10E3/uL} (Normal) Range: 0.7-3.1 Neutrophils (Absolute) 9.9 {x10E3/uL} (Abnormal) Range: 1.4-7.0 Basos 0 % (Normal) Eos 0 % (Normal) Monocytes 7 % (Normal) Lymphs 21 % (Normal) Neutrophils 72 % (Normal) Platelets 413 {x10E3/uL} (Abnormal) Range: 150-379 RDW 13.9 % (Normal) Range: 12.3-15.4 MCHC 32.1 g/dL (Normal) Range: 31.5-35.7 MCH 31.9 pg (Normal) Range: 26.6-33.0 MCV 100 fL (Abnormal) Range: 79-97 Hematocrit 40.2 % (Normal) Range: 34.0-46.6 Hemoglobin 12.9 g/dL (Normal) Range: 11.1-15.9 RBC 4.04 {x10E6/uL} (Normal) Range: 3.77-5.28 WBC 14.0 {x10E3/uL} (Abnormal) Range: 3.4-10.8 :15 Metabolic Panel, Comprehensive Comments: PATIENT NOT FASTINGPERFORMED BY: [facility] medical70 DoyleMaster RouteEC[facility] [id number] ([id number]) ALT (SGPT) 14 [iU]/L (Normal) Range: 0-32 AST (SGOT) 13 [iU]/L (Normal) Range: 0-40 Alkaline Phosphatase, S 60 [iU]/L (Normal) Range: 39-117 Bilirubin, Total 0.4 mg/dL (Normal) Range: 0.0-1.2 A/G Ratio 1.9 (Normal) Range: 1.1-2.5 Globulin, Total 2.2 g/dL (Normal) Range: 1.5-4.5 Albumin, Serum 4.1 g/dL (Normal) Range: 3.5-4.8 Protein, Total, Serum 6.3 g/dL (Normal) Range: 6.0-8.5 Calcium, Serum 9.3 mg/dL (Normal) Range: 8.7-10.3 Carbon Dioxide, Total 24 mmol/L (Normal) Range: 18-29 Chloride, Serum 96 mmol/L (Abnormal) Range: 97-108 Potassium, Serum 4.2 mmol/L (Normal) Range: 3.5-5.2 Sodium, Serum 140 mmol/L (Normal) Range: 134-144 BUN/Creatinine Ratio 23 (Normal) Range: 11-26 eGFR If Africn Am 95 mL/min/1.73 (Normal) eGFR If NonAfricn Am 83 mL/min/1.73 (Normal) Creatinine, Serum 0.73 mg/dL (Normal) Range: 0.57-1.00 BUN 17 mg/dL (Normal) Range: 8-27 Glucose, Serum 98 mg/dL (Normal) Range: 65-99 37-Lim-708873:28 Metabolic Panel, Comments: PATIENT WAS FASTINGPERFORMED BY: [employer]70 Doyle SqueezeCMMECU [facility] [id number] Information: [id number] Comprehensive ([id number]) ALT (SGPT) 13 [iU]/L (Normal) Range: 0-32 AST (SGOT) 13 [iU]/L (Normal) Range: 0-40 Alkaline Phosphatase, S 59 [iU]/L (Normal) Range: 39-117 Bilirubin, Total 0.3 mg/dL (Normal) Range: 0.0-1.2 A/G Ratio 1.7 (Normal) Range: 1.1-2.5 Globulin, Total 2.2 g/dL (Normal) Range: 1.5-4.5 Albumin, Serum 3.8 g/dL (Normal) Range: 3.5-4.8 Protein, Total, Serum 6.0 g/dL (Normal) Range: 6.0-8.5 Calcium, Serum 8.6 mg/dL (Abnormal) Range: 8.7-10.3 Carbon Dioxide, Total 28 mmol/L (Normal) Range: 18-29 Chloride, Serum 99 mmol/L (Normal) Range: 97-108 Potassium, Serum 3.1 mmol/L (Abnormal) Range: 3.5-5.2 Comments: Client Requested Flag Sodium, Serum 143 mmol/L (Normal) Range: 134-144 BUN/Creatinine Ratio 16 (Normal) Range: 11-26 eGFR If Africn Am 111 mL/min/1.73 (Normal) eGFR If NonAfricn Am 96 mL/min/1.73 (Normal) Creatinine, Serum 0.51 mg/dL (Abnormal) Range: 0.57-1.00 BUN 8 mg/dL (Normal) Range: 8-27 Glucose, Serum 110 mg/dL (Abnormal) Range: 65-99 6-Upt-284461:54 Urinalysis, Office ([id number]) UA - LEUKOCYTE ESTERASE Trace (Normal) UA - NITRITE Negative (Normal) URINE UROBILINGN JEWELS TIMED Normal mg/dL (Normal) UA - PROTEIN Negative mg/dL (Normal) UA - PH 6 (Abnormal) UA - BLOOD Negative (Normal) UA - SPECIFIC GRAVITY 1.015 (Normal) UA - KETONES Moderate mg/dL (Normal) UA - BILIRUBIN Negative (Normal) UA - GLUCOSE Negative (Normal) :21 Basic Metabolic Profile (BMP) Comments: [facility] [address] [place], [address] GAP 9 (Normal) Range: 5-15 CO2 27.0 mmol/L (Normal) Range: 21.0-32.0 CL 97 mmol/L (Abnormal) Range: 98-107 K 3.1 mmol/L (Abnormal) Range: 3.5-5.1 NA 133 mmol/L (Abnormal) Range: 136-145 CA 8.8 mg/dL (Normal) Range: 8.5-10.1 BUN/CRE 12.4 {RATIO} (Normal) Range: 10-20 Estimated CRCL 45.74 ml/min (Normal) EST GFR - AA 73 mL/min (Normal) Comments: GFR Calc EST GFR 60 mL/min (Normal) Comments: Non- GFR Calc CREAT,SERUM 0.96 mg/dL (Normal) Range: 0.55-1.20 Comments: The validity of the calculated GFR AND GFRAA in patients over70 years has not been determined. Clinical correlation isessential. BUN 12 mg/dL (Normal) Range: 7-18 GLU 200 mg/dL (Abnormal) Range: 70-110 Comments: Glucose result greater than or equal to 200 mg/dLsuggests DIABETES MELLITUS per A.D.A. criteria. 14-Kid-[id number]:21 CBC W/Diff, Automated Comments: [facility] [address] [facility] [place], [address] Absolute Lymph 3.53 {X10_3/ul} (Normal) Range: 0.83-4.51 Absolute Neut 9.2 {X10_3/uL} (Abnormal) Range: 2.0-7.7 IM GRAN % 0.300 % (Normal) Range: 0.0-0.9 Comments: IG% - Immature Granulocytes (promyelocytes, myelocytes andmetamyelocytes) > 1% indicates that a LEFT SHIFT is Present. BASO% 0.4 % (Normal) Range: 0-1 EO% 0.6 % (Normal) Range: 0-5 MONO% 6.8 % (Normal) Range: 0-10 LY% 25.5 % (Normal) Range: 19-41 NEUT% 66.4 % (Normal) Range: 47-70 MPV 10.5 fL (Normal) Range: 6.2-12.0 PLT 310 K/mm3 (Normal) Range: 150-450 RDW SD 49.5 fL (Abnormal) Range: 35.1-43.9 RDW CV 13.6 % (Normal) Range: 11.6-14.6 MCHC 34.0 {g/gl} (Normal) Range: 32-36 MCH 34.1 pg (Abnormal) Range: 27.0-32.0 MCV 100.2 fL (Abnormal) Range: 81-99 HCT 45.9 % (Normal) Range: 37-47 HGB 15.6 g/dL (Abnormal) Range: 12.0-15.0 RBC 4.58 {M/mm3} (Normal) Range: 4.2-5.4 WBC 13.8 K/mm3 (Abnormal) Range: 4.4-11.0 58-Qpo-224702:21 Urinalysis, Complete Comments: Order Date: 04/25/16How was Urine Obtained? [facility] [address] [place], [address] MUCUS, URINE 0 SEEN {/hpf} (Normal) BACTERIA 4+ {/hpf} (Normal) SQUAM EPI 5-10 SEEN {/hpf} (Normal) Range: 5-10 RBC-UA 0 SEEN {/hpf} (Normal) Range: 0-5 WBC 25-50 SEEN {/hpf} (Normal) Range: 0-5 LEUK ESTERASE 500 /ul (Abnormal) OCCULT BLOOD-UR 25 /ul (Abnormal) NITRITE UR Negative (Normal) UROBILI 4 mg/dL (Abnormal) PROT DIPSTX 30 mg/dL (Abnormal) pH UR 7.0 (Normal) Range: 5.0 - 8.0 SP.GR. DIPSTX 1.010 (Normal) Range: 1.002-1.030 KETONE UR Negative mg/dL (Normal) BILIRUBIN URINE Negative mg/dL (Normal) GLUCOSE, UR Normal mg/dL (Normal) CLARITY Cloudy (Normal) COLOR Yellow (Normal) 05-Qeg-519867:20 Lactic Acid Comments: [facility] [address] [place], [place], [id number] LACTIC ACID 4.8 mmol/L (Abnormal) Range: 0.4-2.0 Comments: Critical Result(s) Called at: 19:26:18 04/25/2016 by:Tiffany Sabillon to Pj BURRELL :32 CBC W/Diff, Automated Comments: [facility] [address] [place], [place], [id number] Absolute Lymph 1.94 {X10_3/ul} (Normal) Range: 0.83-4.51 Absolute Neut 3.7 {X10_3/uL} (Normal) Range: 2.0-7.7 IM GRAN % 0.300 % (Normal) Range: 0.0-0.9 Comments: IG% - Immature Granulocytes (promyelocytes, myelocytes andmetamyelocytes) > 1% indicates that a LEFT SHIFT is Present. BASO% 0.3 % (Normal) Range: 0-1 EO% 1.0 % (Normal) Range: 0-5 MONO% 9.7 % (Normal) Range: 0-10 LY% 30.7 % (Normal) Range: 19-41 NEUT% 58.0 % (Normal) Range: 47-70 MPV 9.8 fL (Normal) Range: 6.2-12.0 PLT 228 K/mm3 (Normal) Range: 150-450 RDW SD 52.3 fL (Abnormal) Range: 35.1-43.9 RDW CV 14.3 % (Normal) Range: 11.6-14.6 MCHC 32.8 {g/gl} (Normal) Range: 32-36 MCH 33.2 pg (Abnormal) Range: 27.0-32.0 MCV 101.1 fL (Abnormal) Range: 81-99 HCT 44.2 % (Normal) Range: 37-47 HGB 14.5 g/dL (Normal) Range: 12.0-15.0 RBC 4.37 {M/mm3} (Normal) Range: 4.2-5.4 WBC 6.3 K/mm3 (Normal) Range: 4.4-11.0 :32 Comprehensive Metabolic Profil Comments: [facility] [address] [place], [place], [id number] GAP 9 (Normal) Range: 5-15 CO2 26.0 mmol/L (Normal) Range: 21.0-32.0 CL 104 mmol/L (Normal) Range: 98-107 K 3.7 mmol/L (Normal) Range: 3.5-5.1 NA 139 mmol/L (Normal) Range: 136-145 T BILI 0.60 mg/dL (Normal) Range: 0.20-1.00 ALT 18 U/L (Normal) Range: 12-78 ALK P 61 U/L (Normal) Range: 50-136 AST 12 U/L (Abnormal) Range: 15-37 CA 8.7 mg/dL (Normal) Range: 8.5-10.1 A/G 1.3 {RATIO} (Normal) Range: 0.9-2.4 GLOB 3.0 g/dL (Normal) Range: 2.3-3.5 ALB 3.9 g/dL (Normal) Range: 3.4-5.0 T PROT 6.9 g/dL (Normal) Range: 6.4-8.2 BUN/CRE 19.2 {RATIO} (Normal) Range: 10-20 EST GFR - AA 101 mL/min (Normal) Comments: GFR Calc EST GFR 83 mL/min (Normal) Comments: Non- GFR Calc CREAT,SERUM 0.73 mg/dL (Normal) Range: 0.55-1.20 Comments: The validity of the calculated GFR AND GFRAA in patients over70 years has not been determined. Clinical correlation isessential. BUN 14 mg/dL (Normal) Range: 7-18 GLU 126 mg/dL (Abnormal) Range: 70-110 Comments: Fasting Glucose result greater than or equal to 126 mg/dLsuggests DIABETES MELLITUS per A.D.A. criteria. 86-Cte-471303:01 CBC W/Diff, Automated Comments: [facility] [address] [place], [place], [address] Absolute Lymph 2.12 {X10_3/ul} (Normal) Range: 0.83-4.51 Absolute Neut 7.2 {X10_3/uL} (Normal) Range: 2.0-7.7 IM GRAN % 0.200 % (Normal) Range: 0.0-0.9 Comments: IG% - Immature Granulocytes (promyelocytes, myelocytes andmetamyelocytes) > 1% indicates that a LEFT SHIFT is Present. BASO% 0.1 % (Normal) Range: 0-1 EO% 0.2 % (Normal) Range: 0-5 MONO% 5.8 % (Normal) Range: 0-10 LY% 21.3 % (Normal) Range: 19-41 NEUT% 72.4 % (Abnormal) Range: 47-70 MPV 10.0 fL (Normal) Range: 6.2-12.0 PLT 319 K/mm3 (Normal) Range: 150-450 RDW SD 48.9 fL (Abnormal) Range: 35.1-43.9 RDW CV 13.7 % (Normal) Range: 11.6-14.6 MCHC 33.6 {g/gl} (Normal) Range: 32-36 MCH 33.4 pg (Abnormal) Range: 27.0-32.0 MCV 99.4 fL (Abnormal) Range: 81-99 HCT 47.6 % (Abnormal) Range: 37-47 HGB 16.0 g/dL (Abnormal) Range: 12.0-15.0 RBC 4.79 {M/mm3} (Normal) Range: 4.2-5.4 WBC 9.9 K/mm3 (Normal) Range: 4.4-11.0 63-Dso-089135:01 CRP Comments: [facility] [address] [facility] [place], [address] C-REACTIVE PROT < 2.90 mg/L (Normal) Range: 0.0-3.0 Comments: C-Reactive Protein (CRP) provides useful information for thediagnosis, therapy and monitoring of inflammatory processesand associated diseases. For the evaluation of Relative Riskfor Cardiovascular Dise ase, a High Sensitivity CRP (HSCRP)should be ordered. 77-Mam-843956:01 Erythrocyte Sed Rate Comments: [facility] [address] [place], [place], [address] SED RATE 10 mm/h (Normal) Range: 0-30 25-Pjh-686674:13 CK-MB Quantitative and Index Comments: 'TROP' Serial specimen #1, #2, #3, or #4: 1'CKMB' Serial Specimen #1, #2 or #3? [facility] [address] [place], [place], [address] CKRI 1.5 % (Abnormal) Range: 0.0-1.4 Comments: RELATIVE INDEX >1.5% IS PRESUMPTIVELY POSITIVE CPKMB 1.0 ng/mL (Normal) Range: 0.0-5.0 Comments: CK-MB and RI Interpretation MB Relative Index Non-AMI <or= 5 NA Indeterminate > 5 <or= 4 AMI > 5 > 4 CPK TOTAL 65 U/L (Normal) Range: 26-192 04-Jlj-999690:13 Myoglobin, Serum Comments: [facility] (refer to report for specific site)refer to report for address and phone number Myoglobin, Ser 42 ng/mL (Normal) Range: 25-58 Comments: Performed at: [address] [id number] Director: Edil Robertson PhD, Phone: [phone] 16-Fvj-886032:13 Troponin-I Comments: 'TROP' Serial specimen #1, #2, #3, or #4: 1'CKMB' Serial Specimen #1, #2 or #3? 1[facility] [address] [place], [place], [address] TROPONIN-I < 0.02 ng/mL (Normal) Comments: TROPONIN-I EXPECTED VALUES <0.05 NEGATIVE 0.06 - 0.59 AT RISK OF VT > OR = 0.60 SUGGEST VT 89-Drj-172928:19 URINE HANSA CULTURE-JEWELS COL Comments: PATIENT NOT FASTINGPERFORMED BY: [address] [id number] Information: SR[facility] [place] [id number] COUNT ([id number]) Antimicrobial MIHEAD (Normal) Comments: S = Susceptible; I = Intermediate; R = Resistant P = Positive; N = Negative MICS are expressed in micrograms per mL Antibiotic RSLT#1 RSLT#2 RS Susceptibility LT#3 RSLT#4Amoxicillin/Clavulanic Acid IAmpicillin RCefepime SCeftriaxone SCefuroxime SCephalothin RCiprofloxacin RErtapenem SGentamicin SImipenem SLevofloxacin RNitrofurantoin SPipera cillin RTetracycline RTobramycin STrimethoprim/Sulfa R Result 1 Escherichia coli Comments: Greater than 100,000 colony forming units per mL (Abnormal) Urine Final report Culture,Comprehensive (Abnormal) 24-Gwt-[id number]:54 Urinalysis, Office (79051) UA - LEUKOCYTE ESTERASE Small (Normal) UA - NITRITE Positive (Normal) URINE UROBILINGN JEWELS TIMED Normal mg/dL (Normal) UA - PROTEIN Trace mg/dL (Normal) UA - PH 7 (Normal) UA - BLOOD Negative (Normal) UA - SPECIFIC GRAVITY 1.025 (Normal) UA - KETONES Small mg/dL (Normal) UA - BILIRUBIN Small (Normal) UA - GLUCOSE Negative (Normal) 80-Aos-734490:38 Blood Glucose , Office (01079) Blood Glucose , Office 85 (Normal) :38 Basic Metabolic Profile (BMP) Comments: Is Patient Taking Vitamins or Folic Acid Supplements? [facility] [address] [facility] [place], [place], [address] GAP 9 (Normal) Range: 5-15 CO2 28.0 mmol/L (Normal) Range: 21.0-32.0 CL 105 mmol/L (Normal) Range: 98-107 K 4.0 mmol/L (Normal) Range: 3.5-5.1 NA 142 mmol/L (Normal) Range: 136-145 CA 8.6 mg/dL (Normal) Range: 8.5-10.1 BUN/CRE 33.4 {RATIO} (Abnormal) Range: 10-20 EST GFR - AA 103 mL/min (Normal) Comments: GFR Calc EST GFR 85 mL/min (Normal) Comments: Non- GFR Calc CREAT,SERUM 0.72 mg/dL (Normal) Range: 0.55-1.20 Comments: The validity of the calculated GFR AND GFRAA in patients over70 years has not been determined. Clinical correlation isessential. BUN 24 mg/dL (Abnormal) Range: 7-18 GLU 125 mg/dL (Abnormal) Range: 70-110 Comments: Fasting Glucose result from 110 to <126 mg/dLsuggests IMPAIRED HOMEOSTASIS per A.D.A. criteria. :38 Folates, (Folic Acid) Comments: Is Patient Taking Vitamins or Folic Acid Supplements? [facility] [address] [place], [place], [address] FOLATES 13.40 ng/mL (Normal) Range: 3.1-17.5 :38 Vitamin B12 723 pg/mL (Normal) Comments: [facility] [address] [place], [address] Range: 211-911 :32 CBC W/Diff, Automated Comments: [facility] [address] [place], [address] ; ordered by Dr. Colmenares Absolute Lymph 2.88 {X10_3/ul} (Normal) Range: 0.83-4.51 Absolute Neut 2.9 {X10_3/uL} (Normal) Range: 2.0-7.7 IM GRAN % 0.300 % (Normal) Range: 0.0-0.9 Comments: IG% - Immature Granulocytes (promyelocytes, myelocytes andmetamyelocytes) > 1% indicates that a LEFT SHIFT is Present. BASO% 0.8 % (Normal) Range: 0-1 EO% 3.3 % (Normal) Range: 0-5 MONO% 7.9 % (Normal) Range: 0-10 LY% 43.8 % (Abnormal) Range: 19-41 NEUT% 43.9 % (Abnormal) Range: 47-70 MPV 9.7 fL (Normal) Range: 6.2-12.0 PLT 299 K/mm3 (Normal) Range: 150-450 RDW SD 52.5 fL (Abnormal) Range: 35.1-43.9 RDW CV 14.6 % (Normal) Range: 11.6-14.6 MCHC 32.2 {g/gl} (Normal) Range: 32-36 MCH 32.6 pg (Abnormal) Range: 27.0-32.0 MCV 101.0 fL (Abnormal) Range: 81-99 HCT 39.4 % (Normal) Range: 37-47 HGB 12.7 g/dL (Normal) Range: 12.0-15.0 RBC 3.90 {M/mm3} (Abnormal) Range: 4.2-5.4 WBC 6.6 K/mm3 (Normal) Range: 4.4-11.0 6-May-58915:32 Comprehensive Metabolic Profil Comments: [facility] [address] [place], [address] GAP 5 (Normal) Range: 5-15 CO2 31.0 mmol/L (Normal) Range: 21.0-32.0 CL 106 mmol/L (Normal) Range: 98-107 K 3.2 mmol/L (Abnormal) Range: 3.5-5.1 NA 142 mmol/L (Normal) Range: 136-145 T BILI 0.40 mg/dL (Normal) Range: 0.20-1.00 ALT 25 U/L (Normal) Range: 12-78 ALK P 66 U/L (Normal) Range: 50-136 AST 15 U/L (Normal) Range: 15-37 CA 8.0 mg/dL (Abnormal) Range: 8.5-10.1 A/G 1.3 {RATIO} (Normal) Range: 0.9-2.4 GLOB 3.1 g/dL (Normal) Range: 2.3-3.5 ALB 3.9 g/dL (Normal) Range: 3.4-5.0 T PROT 7.0 g/dL (Normal) Range: 6.4-8.2 BUN/CRE 20.5 {RATIO} (Abnormal) Range: 10-20 EST GFR - AA 101 mL/min (Normal) Comments: GFR Calc EST GFR 83 mL/min (Normal) Comments: Non- GFR Calc CREAT,SERUM 0.73 mg/dL (Normal) Range: 0.55-1.20 Comments: The validity of the calculated GFR AND GFRAA in patients over70 years has not been determined. Clinical correlation isessential. BUN 15 mg/dL (Normal) Range: 7-18 GLU 98 mg/dL (Normal) Range: 70-110 :03 LIPID PANEL ([id number]) Comments: PATIENT WAS FASTINGPERFORMED BY: CB [facility] [id number] [facility] [id number] BY: BN [facility] [address] [id number] LDL/HDL Ratio 3.2 {ratio_units} (Normal) Range: 0.0-3.2 Comments: LDL/HDL Ratio Men Women 1/2 Avg.Risk 1.0 1.5 Av g.Risk 3.6 3.2 2X Avg.Risk 6.2 5.0 3X Avg.Risk 8.0 6.1 LDL Cholesterol Calc 144 mg/dL (Abnormal) Range: 0-99 VLDL Cholesterol Peg 24 mg/dL (Normal) Range: 5-40 HDL Cholesterol 45 mg/dL (Normal) Comments: According to ATP-III Guidelines, HDL-C >59 mg/dL is considered anegative risk factor for CHD. Triglycerides 121 mg/dL (Normal) Range: 0-149 Cholesterol, Total 213 mg/dL (Abnormal) Range: 100-199 :03 VITAMIN D, 1, 25-DIHYDROXY Comments: PATIENT WAS FASTINGPERFORMED BY: [employer] [facility] [id number] BY: [place] [id number] ([id number]) Calcitriol(1,25 di-OH Vit D) 51.7 pg/mL (Normal) Range: 19.9-79.3 :03 MICROALBUMIN: CREATININE Comments: PATIENT WAS FASTINGPERFORMED BY: [employer] [facility] [id number] BY: [employer] [id number] RATIO ([id number]) AND ([id number]) Microalb/Creat Ratio 35.5 {mg/g_creat} (Abnormal) Range: 0.0-30.0 Microalbumin, Urine 42.6 ug/mL (Abnormal) Range: 0.0-17.0 Creatinine, Urine 120.0 mg/dL (Normal) Range: 15.0-278.0 :03 METABOLIC PANEL, Comments: PATIENT WAS FASTINGPERFORMED BY: [facility] Inc[place] [id number] [facility] [id number] BY: [address] [id number] COMPREHENSIVE ([id number]) ALT (SGPT) 14 [iU]/L (Normal) Range: 0-32 AST (SGOT) 15 [iU]/L (Normal) Range: 0-40 Alkaline Phosphatase, S 61 [iU]/L (Normal) Range: 39-117 Bilirubin, Total 0.3 mg/dL (Normal) Range: 0.0-1.2 A/G Ratio 2.1 (Normal) Range: 1.1-2.5 Globulin, Total 2.2 g/dL (Normal) Range: 1.5-4.5 Albumin, Serum 4.7 g/dL (Normal) Range: 3.5-4.8 Protein, Total, Serum 6.9 g/dL (Normal) Range: 6.0-8.5 Calcium, Serum 9.0 mg/dL (Normal) Range: 8.7-10.3 Carbon Dioxide, Total 26 mmol/L (Normal) Range: 18-29 Chloride, Serum 97 mmol/L (Normal) Range: 97-108 Potassium, Serum 4.3 mmol/L (Normal) Range: 3.5-5.2 Sodium, Serum 140 mmol/L (Normal) Range: 134-144 BUN/Creatinine Ratio 20 (Normal) Range: 11-26 eGFR If Africn Am 75 mL/min/1.73 (Normal) eGFR If NonAfricn Am 65 mL/min/1.73 (Normal) Creatinine, Serum 0.89 mg/dL (Normal) Range: 0.57-1.00 BUN 18 mg/dL (Normal) Range: 8-27 Glucose, Serum 137 mg/dL (Abnormal) Range: 65-99 53-Kji-74648:03 CBC, PLATELETS & AUT DIFF Comments: PATIENT WAS FASTINGPERFORMED BY: CB [facility] Onqotj2519 [facility] [id number] BY: BN [facility] [address] [id number] Information: [id number] (28475) Immature Grans (Abs) 0.0 {x10E3/uL} (Normal) Range: 0.0-0.1 Immature Granulocytes 0 % (Normal) Baso (Absolute) 0.0 {x10E3/uL} (Normal) Range: 0.0-0.2 Eos (Absolute) 0.2 {x10E3/uL} (Normal) Range: 0.0-0.4 Monocytes(Absolute) 0.6 {x10E3/uL} (Normal) Range: 0.1-0.9 Lymphs (Absolute) 2.5 {x10E3/uL} (Normal) Range: 0.7-3.1 Neutrophils (Absolute) 4.4 {x10E3/uL} (Normal) Range: 1.4-7.0 Basos 0 % (Normal) Eos 2 % (Normal) Monocytes 8 % (Normal) Lymphs 32 % (Normal) Neutrophils 58 % (Normal) Platelets 309 {x10E3/uL} (Normal) Range: 150-379 RDW 15.0 % (Normal) Range: 12.3-15.4 MCHC 33.5 g/dL (Normal) Range: 31.5-35.7 MCH 32.3 pg (Normal) Range: 26.6-33.0 MCV 97 fL (Normal) Range: 79-97 Hematocrit 41.5 % (Normal) Range: 34.0-46.6 Hemoglobin 13.9 g/dL (Normal) Range: 11.1-15.9 RBC 4.30 {x10E6/uL} (Normal) Range: 3.77-5.28 WBC 7.8 {x10E3/uL} (Normal) Range: 3.4-10.8 :03 TSH (THYROID STIMULATING Comments: PATIENT WAS FASTINGPERFORMED BY: BRCK IncCarrier ClinicIjwanj[address] [place] [address] [id number] BY: Only-apartments[address] [id number] HORMONE) (63492) TSH 3.840 {uIU/mL} (Normal) Range: 0.450-4.500 :03 VITAMIN B12 AND FOLATES Comments: PATIENT WAS FASTINGPERFORMED BY: BRCK IncCarrier ClinicSyihrn[address] [place] [address] [id number] BY: VoteIt[address] [id number] (00220) Folate (Folic Acid), Serum 14.3 ng/mL (Normal) Comments: A serum folate concentration of less than 3.1 ng/mL isconsidered to represent clinical deficiency. Vitamin B12 742 pg/mL (Normal) Range: 211-946 :56 HgA1C , Office (91522) HgA1C , Office 6.8 % (Normal) Range: 4.6 - 7.1 :56 Blood Glucose , Office (79486) Blood Glucose , Office 128 (Normal) :36 CBC W/Diff, Automated Comments: [facility] [address] [place], [place], [id number] Absolute Lymph 2.25 {X10_3/ul} (Normal) Range: 0.83-4.51 Absolute Neut 4.5 {X10_3/uL} (Normal) Range: 2.0-7.7 IM GRAN % 0.300 % (Normal) Range: 0.0-0.9 Comments: IG% - Immature Granulocytes (promyelocytes, myelocytes andmetamyelocytes) > 1% indicates that a LEFT SHIFT is Present. BASO% 0.5 % (Normal) Range: 0-1 EO% 1.6 % (Normal) Range: 0-5 MONO% 9.5 % (Normal) Range: 0-10 LY% 29.2 % (Normal) Range: 19-41 NEUT% 58.9 % (Normal) Range: 47-70 MPV 10.3 fL (Normal) Range: 6.2-12.0 PLT 334 K/mm3 (Normal) Range: 150-450 RDW SD 51.2 fL (Abnormal) Range: 35.1-43.9 RDW CV 14.3 % (Normal) Range: 11.6-14.6 MCHC 32.1 {g/gl} (Normal) Range: 32-36 MCH 32.0 pg (Normal) Range: 27.0-32.0 MCV 99.6 fL (Abnormal) Range: 81-99 HCT 45.8 % (Normal) Range: 37-47 HGB 14.7 g/dL (Normal) Range: 12.0-15.0 RBC 4.60 {M/mm3} (Normal) Range: 4.2-5.4 WBC 7.7 K/mm3 (Normal) Range: 4.4-11.0 26-Rjw-17386:36 Comprehensive Metabolic Profil Comments: [facility] [address] [place], [place], [id number] GAP 8 (Normal) Range: 5-15 CO2 28.0 mmol/L (Normal) Range: 21.0-32.0 CL 106 mmol/L (Normal) Range: 98-107 K 4.1 mmol/L (Normal) Range: 3.5-5.1 NA 142 mmol/L (Normal) Range: 136-145 T BILI 0.50 mg/dL (Normal) Range: 0.20-1.00 ALT 20 U/L (Normal) Range: 12-78 ALK P 64 U/L (Normal) Range: 50-136 AST 11 U/L (Abnormal) Range: 15-37 CA 8.7 mg/dL (Normal) Range: 8.5-10.1 A/G 1.5 {RATIO} (Normal) Range: 0.9-2.4 GLOB 3.1 g/dL (Normal) Range: 2.3-3.5 ALB 4.8 g/dL (Normal) Range: 3.4-5.0 T PROT 7.9 g/dL (Normal) Range: 6.4-8.2 BUN/CRE 25.6 {RATIO} (Abnormal) Range: 10-20 EST GFR - AA 76 mL/min (Normal) Comments: GFR Calc EST GFR 63 mL/min (Normal) Comments: Non- GFR Calc CREAT,SERUM 0.94 mg/dL (Normal) Range: 0.55-1.20 Comments: The validity of the calculated GFR AND GFRAA in patients over70 years has not been determined. Clinical correlation isessential. BUN 24 mg/dL (Abnormal) Range: 7-18 GLU 145 mg/dL (Abnormal) Range: 70-110 Comments: Fasting Glucose result greater than or equal to 126 mg/dLsuggests DIABETES MELLITUS per A.D.A. criteria. 4-Bgy-519317:12 ANTINUCLEAR ANTIBODIES DIRECT Comments: [facility] (refer to report for specific site)refer to report for address and phone number [place]-DIRECT Negative (Normal) Comments: Performed at: [facility] [address] [id number] Director: Edil Robertson PhD, Phone: [phone] 8-Snk-123429:12 CBC W/Diff, Automated Comments: [facility] [address] [place], [place], [id number] Absolute Lymph 1.93 {X10_3/ul} (Normal) Range: 0.83-4.51 Absolute Neut 3.7 {X10_3/uL} (Normal) Range: 2.0-7.7 IM GRAN % 0.200 % (Normal) Range: 0.0-0.9 Comments: IG% - Immature Granulocytes (promyelocytes, myelocytes andmetamyelocytes) > 1% indicates that a LEFT SHIFT is Present. BASO% 0.6 % (Normal) Range: 0-1 EO% 1.6 % (Normal) Range: 0-5 MONO% 8.3 % (Normal) Range: 0-10 LY% 30.4 % (Normal) Range: 19-41 NEUT% 58.9 % (Normal) Range: 47-70 MPV 10.9 fL (Normal) Range: 6.2-12.0 PLT 241 K/mm3 (Normal) Range: 150-450 RDW SD 43.8 fL (Normal) Range: 35.1-43.9 RDW CV 12.9 % (Normal) Range: 11.6-14.6 MCHC 33.3 {g/gl} (Normal) Range: 32-36 MCH 31.9 pg (Normal) Range: 27.0-32.0 MCV 96.0 fL (Normal) Range: 81-99 HCT 42.7 % (Normal) Range: 37-47 HGB 14.2 g/dL (Normal) Range: 12.0-15.0 RBC 4.45 {M/mm3} (Normal) Range: 4.2-5.4 WBC 6.4 K/mm3 (Normal) Range: 4.4-11.0 :12 CCP IgG Antibodies Comments: [facility] (refer to report for specific site)refer to report for address and phone number ANTI-CCP [id number] 4 {units} (Normal) Range: 0-19 Comments: Negative <20 Weak positive 20 - 39 Moderate positive 40 - 59 Strong positive >59 :12 Comprehensive Metabolic Profil Comments: [facility] [id number] [place], [address] GAP 6 (Normal) Range: 5-15 CO2 33.0 mmol/L (Abnormal) Range: 21.0-32.0 CL 103 mmol/L (Normal) Range: 98-107 K 3.7 mmol/L (Normal) Range: 3.5-5.1 NA 142 mmol/L (Normal) Range: 136-145 T BILI 0.50 mg/dL (Normal) Range: 0.20-1.00 ALT 28 U/L (Normal) Range: 12-78 ALK P 66 U/L (Normal) Range: 50-136 AST 11 U/L (Abnormal) Range: 15-37 CA 8.9 mg/dL (Normal) Range: 8.5-10.1 A/G 1.2 {RATIO} (Normal) Range: 0.9-2.4 GLOB 3.6 g/dL (Abnormal) Range: 2.3-3.5 ALB 4.3 g/dL (Normal) Range: 3.4-5.0 T PROT 7.9 g/dL (Normal) Range: 6.4-8.2 BUN/CRE 24.2 {RATIO} (Abnormal) Range: 10-20 EST GFR - AA 121 mL/min (Normal) Comments: GFR Calc EST GFR 100 mL/min (Normal) Comments: Non- GFR Calc CREAT,SERUM 0.62 mg/dL (Normal) Range: 0.55-1.20 Comments: The validity of the calculated GFR AND GFRAA in patients over70 years has not been determined. Clinical correlation isessential. BUN 15 mg/dL (Normal) Range: 7-18 GLU 95 mg/dL (Normal) Range: 70-110 1-Quw-851527:12 Hep B Surface Antibodies Comments: [facility] (refer to report for specific site)refer to report for address and phone number Hep B Loi AB Reactive (Normal) Comments: Non Reactive: Inconsistent with immunity, less than 10 mIU/mL Reactive: Consistent with immunity, greater than 9.9 mIU/mL 9-Xpq-732077:12 Hepatitis B Surface Ag Comments: [facility] (refer to report for specific site)refer to report for address and phone number HB SURF AG Negative (Normal) 9-Tey-259995:12 Hepatitis B Core AB IgM Comments: [facility] (refer to report for specific site)refer to report for address and phone number HB CORE [id number] Negative (Normal) Comments: Performed at: - [facility] [id number] Director: Edil Robertson PhD, Phone: [phone] at: 2Q - [facility] PWP5[address] [place], [place] [id number] Director: Jared Rodriguez PhD, Phone: [phone] at: - Lab[address] [id number] Director: Dylan Matthews MD, Phone: [phone] 9-Sni-258600:12 Hepatitis C Antibodies Comments: [facility] (refer to report for specific site)refer to report for address and phone number HEP C AB <0.1 {s/co_ratio} (Normal) Range: 0.0-0.9 Comments: Negative: < 0.8 Indeterminate: 0.8 - 0.9 Positive: > 0.9 In order to reduce the incidence of a false positive result, the CDC recommends that all s/co ratios between 1.0 and 10.9 be confirmed by a more specific supplemental or PCR testing. [facility] offers HCV Ab w/Reflex to Verification test #[id number]. :12 HLA B27 Negative (Normal) Comments: [facility] (refer to report for specific site)refer to report for address and phone number Comments: HLA-B*27 NegativeHLA allele interpretation for all loci based on IMGT/HLAdatabase version 3.15A Lab CLIA ID Number [id number] test was performed using PCR (Polymerase ChainReaction)/SSOP (Sequence Specific Oligonucleotide Probes)technique. SBT (Sequence Based Typing) and/or SSP(Sequence Specific Primers) may be used as supplementalmethods when necessary. Please contact HLA CustomerService at [phone] if you have any questions. Director of HLA Laboratory Dr Jared Rodriguez, PhD :12 Rheumatoid Factor Comments: [facility] [address] [place], [address] RHEUMATOID FAC < 10.0 {IU/mL} (Normal) 2-Nua-830134:12 Vitamin D,25 Hydroxy Comments: [facility] [address], [id number] Vitamin D 25-OH 50.9 ng/mL (Normal) Comments: Vitamin D 25(OH) Status Range Deficiency <20 ng/mL (50nmol/L) Insuffciency 20 - 30 ng/mL (50 - 75 nmol/L) Sufficiency 30 - 100 ng/mL (75 - 250 nmol/L) Toxicity >100 ng/mL (>250 nmol/L) 64-Qbv-82266:37 LIPID PANEL (20347) Comments: PATIENT WAS FASTINGPERFORMED BY: [facility] [id number] LDL/HDL Ratio 2.8 {ratio_units} (Normal) Range: 0.0-3.2 Comments: LDL/HDL Ratio Men Women 1/2 Avg.Risk 1.0 1.5 Av g.Risk 3.6 3.2 2X Avg.Risk 6.2 5.0 3X Avg.Risk 8.0 6.1 LDL Cholesterol Calc 101 mg/dL (Abnormal) Range: 0-99 Comments: Effective June 29, 2015 the reference interval for LDL Cholesterol Calc will be changing to: 0 - 19 years 0 - 109 >19 years 0 - 99 VLDL Cholesterol Peg 38 mg/dL (Normal) Range: 5-40 HDL Cholesterol 36 mg/dL (Abnormal) Comments: According to ATP-III Guidelines, HDL-C >59 mg/dL is considered anegative risk factor for CHD. Triglycerides 188 mg/dL (Abnormal) Range: 0-149 Comments: Effective June 29, 2015 the reference interval for Triglycerides will be changing to: 0 - 9 years 0 - 74 10 - 19 years 0 - 89 >19 years 0 - 149 Cholesterol, Total 175 mg/dL (Normal) Range: 100-199 Comments: Effective June 29, 2015 the reference interval for Cholesterol, Total will be changing to: 0 - 19 years 100 - 169 >19 years 100 - 199 02-Oye-54251:37 CBC, PLATELETS & AUT DIFF Comments: PATIENT WAS FASTINGPERFORMED BY: [facility] DocDep [facility] [id number] Information: [id number] (31114) Immature Grans (Abs) 0.0 {x10E3/uL} (Normal) Range: 0.0-0.1 Immature Granulocytes 0 % (Normal) Baso (Absolute) 0.0 {x10E3/uL} (Normal) Range: 0.0-0.2 Eos (Absolute) 0.1 {x10E3/uL} (Normal) Range: 0.0-0.4 Monocytes(Absolute) 0.4 {x10E3/uL} (Normal) Range: 0.1-0.9 Lymphs (Absolute) 1.6 {x10E3/uL} (Normal) Range: 0.7-3.1 Neutrophils (Absolute) 3.4 {x10E3/uL} (Normal) Range: 1.4-7.0 Basos 1 % (Normal) Eos 2 % (Normal) Monocytes 8 % (Normal) Lymphs 28 % (Normal) Neutrophils 61 % (Normal) Platelets 261 {x10E3/uL} (Normal) Range: 150-379 RDW 13.4 % (Normal) Range: 12.3-15.4 MCHC 33.6 g/dL (Normal) Range: 31.5-35.7 MCH 31.8 pg (Normal) Range: 26.6-33.0 MCV 95 fL (Normal) Range: 79-97 Hematocrit 41.1 % (Normal) Range: 34.0-46.6 Hemoglobin 13.8 g/dL (Normal) Range: 11.1-15.9 RBC 4.34 {x10E6/uL} (Normal) Range: 3.77-5.28 WBC 5.7 {x10E3/uL} (Normal) Range: 3.4-10.8 :37 VITAMIN B-12 (CYANOCOBALAMIN) Comments: PATIENT WAS FASTINGPERFORMED BY: Only-apartments [facility]EC[facility] [id number] (47027) Vitamin B12 871 pg/mL (Normal) Range: 211-946 :37 Vitamin D Hydroxy (99042) Comments: PATIENT WAS FASTINGPERFORMED BY: Only-apartmentsrp [facility] [place] [id number] Vitamin D, 25-Hydroxy 69.6 ng/mL (Normal) Range: 30.0-100.0 Comments: Vitamin D deficiency has been defined by the [place] [facility] and an Endocrine Society practice guideline as alevel of serum 25-OH vitamin D less than 20 ng/mL (1,2).The Endocrine Society went on to further define vitamin Dinsufficiency as a level between 21 and 29 ng/mL (2).1. IOM ([place] [facility] [employer]). 2010. Dietary reference intakes for calcium and D. [place]: The National Academies Press.2. Delma MF, Mckenna ABDALLA, Dane MACKENZIE, et al. Evaluation, treatment, and prevention of vitamin D deficiency: an Endocrine Society clinical practice guideline. JCEM. 2010; 96(7):1911-30. :37 METABOLIC PANEL, COMPREHENSIVE Comments: PATIENT WAS FASTINGPERFORMED BY: LabCoCarrier ClinicVjsvpd3020 [facility] [id number]; apt. 07-01-[birth year] (44216) ALT (SGPT) 10 [iU]/L (Normal) Range: 0-32 AST (SGOT) 11 [iU]/L (Normal) Range: 0-40 Alkaline Phosphatase, S 55 [iU]/L (Normal) Range: 39-117 Bilirubin, Total 0.4 mg/dL (Normal) Range: 0.0-1.2 A/G Ratio 1.9 (Normal) Range: 1.1-2.5 Globulin, Total 2.4 g/dL (Normal) Range: 1.5-4.5 Albumin, Serum 4.6 g/dL (Normal) Range: 3.5-4.8 Protein, Total, Serum 7.0 g/dL (Normal) Range: 6.0-8.5 Calcium, Serum 8.7 mg/dL (Normal) Range: 8.7-10.3 Carbon Dioxide, Total 25 mmol/L (Normal) Range: 18-29 Chloride, Serum 101 mmol/L (Normal) Range: 97-108 Potassium, Serum 4.0 mmol/L (Normal) Range: 3.5-5.2 Sodium, Serum 145 mmol/L (Abnormal) Range: 134-144 BUN/Creatinine Ratio 24 (Normal) Range: 11-26 eGFR If Africn Am 104 mL/min/1.73 (Normal) eGFR If NonAfricn Am 91 mL/min/1.73 (Normal) Creatinine, Serum 0.63 mg/dL (Normal) Range: 0.57-1.00 BUN 15 mg/dL (Normal) Range: 8-27 Glucose, Serum 113 mg/dL (Abnormal) Range: 65-99 :02 HgA1C , Office (59440) HgA1C , Office 7.1 % (Normal) Range: 4.6 - 7.1 20-Jjn-933452:24 EBV Panel (29470) Comments: PATIENT NOT FASTINGPERFORMED BY: [facility]ItMcl[facility] Region6370 [facility] [id number] Interpretation: SPRCS (Normal) Comments: EBV Interpretation Chart . Interpretation EBV-IgM EA(D)-IgG VCA-IgG EBNA-IgG . EBV Seronegative - - - - Early Phase + - - - Acute Primary + +or- + - Infection Convalescence/Past - +or- + + Infection Reactivated +or- + + + Infection + Antibody Present - Antibody Absent EBV Nuclear Antigen Ab, IgG 237.0 U/mL (Abnormal) Range: 0.0-17.9 Comments: Negative <18.0 Equivocal 18.0 - 21.9 Positive >21.9 EBV Ab VCA, IgG >600.0 U/mL (Abnormal) Range: 0.0-17.9 Comments: Negative <18.0 Equivocal 18.0 - 21.9 Positive >21.9 EBV Early Antigen Ab, IgG <9.0 U/mL (Normal) Range: 0.0-8.9 Comments: Negative < 9.0 Equivocal 9.0 - 10.9 Positive >10.9 EBV Ab VCA, IgM <36.0 U/mL (Normal) Range: 0.0-35.9 Comments: Negative <36.0 Equivocal 36.0 - 43.9 Positive >43.9 :24 CBC W/AUTO DIFF WBC Comments: PATIENT NOT FASTINGPERFORMED BY: LabMcl[facility] Region6370 [facility] [id number] Information: [id number] (57120) Immature Grans (Abs) 0.0 {x10E3/uL} (Normal) Range: 0.0-0.1 Immature Granulocytes 0 % (Normal) Baso (Absolute) 0.0 {x10E3/uL} (Normal) Range: 0.0-0.2 Eos (Absolute) 0.3 {x10E3/uL} (Normal) Range: 0.0-0.4 Monocytes(Absolute) 0.5 {x10E3/uL} (Normal) Range: 0.1-0.9 Lymphs (Absolute) 2.1 {x10E3/uL} (Normal) Range: 0.7-3.1 Neutrophils (Absolute) 3.8 {x10E3/uL} (Normal) Range: 1.4-7.0 Basos 0 % (Normal) Eos 4 % (Normal) Monocytes 7 % (Normal) Lymphs 32 % (Normal) Neutrophils 57 % (Normal) Platelets 225 {x10E3/uL} (Normal) Range: 150-379 RDW 14.0 % (Normal) Range: 12.3-15.4 MCHC 33.1 g/dL (Normal) Range: 31.5-35.7 MCH 31.5 pg (Normal) Range: 26.6-33.0 MCV 95 fL (Normal) Range: 79-97 Hematocrit 41.1 % (Normal) Range: 34.0-46.6 Hemoglobin 13.6 g/dL (Normal) Range: 11.1-15.9 RBC 4.32 {x10E6/uL} (Normal) Range: 3.77-5.28 WBC 6.7 {x10E3/uL} (Normal) Range: 3.4-10.8 55-Int-270571:37 HANSA CULTURE-OTHER (51609) Comments: PATIENT NOT FASTINGPERFORMED BY: [facility] [id number] Information: SRC:THRT [id number] Result 1 RRF (Normal) Comments: Routine respiratory vicente Upper Respiratory Culture Final report (Normal) 95-Pdl-517384:30 Rapid Strep Test, Office (76714) Rapid Strep Test, Office Negative (Normal) 06-Feb-20159:15 CBC, Platelet, No Differential Comments: PATIENT WAS FASTINGPERFORMED BY: [facility] Inc [facility] [id number] Platelets 245 {x10E3/uL} (Normal) Range: 150-379 RDW 13.9 % (Normal) Range: 12.3-15.4 MCHC 33.6 g/dL (Normal) Range: 31.5-35.7 MCH 31.4 pg (Normal) Range: 26.6-33.0 MCV 93 fL (Normal) Range: 79-97 Hematocrit 39.9 % (Normal) Range: 34.0-46.6 Hemoglobin 13.4 g/dL (Normal) Range: 11.1-15.9 RBC 4.27 {x10E6/uL} (Normal) Range: 3.77-5.28 WBC 4.9 {x10E3/uL} (Normal) Range: 3.4-10.8 06-Feb-20159:15 Comp. Metabolic Panel (14) Comments: PATIENT WAS FASTINGPERFORMED BY: LabCoCarrier ClinicJxcpma2820 [facility] [id number] Information: [id number] ALT (SGPT) 8 [iU]/L (Normal) Range: 0-32 AST (SGOT) 12 [iU]/L (Normal) Range: 0-40 Alkaline Phosphatase, S 62 [iU]/L (Normal) Range: 39-117 Bilirubin, Total 0.5 mg/dL (Normal) Range: 0.0-1.2 A/G Ratio 2.3 (Normal) Range: 1.1-2.5 Globulin, Total 2.0 g/dL (Normal) Range: 1.5-4.5 Albumin, Serum 4.5 g/dL (Normal) Range: 3.5-4.8 Protein, Total, Serum 6.5 g/dL (Normal) Range: 6.0-8.5 Calcium, Serum 9.1 mg/dL (Normal) Range: 8.7-10.3 Carbon Dioxide, Total 26 mmol/L (Normal) Range: 18-29 Chloride, Serum 97 mmol/L (Normal) Range: 97-108 Potassium, Serum 4.6 mmol/L (Normal) Range: 3.5-5.2 Sodium, Serum 145 mmol/L (Abnormal) Range: 134-144 BUN/Creatinine Ratio 32 (Abnormal) Range: 11-26 eGFR If Africn Am 103 mL/min/1.73 (Normal) eGFR If NonAfricn Am 89 mL/min/1.73 (Normal) Creatinine, Serum 0.66 mg/dL (Normal) Range: 0.57-1.00 BUN 21 mg/dL (Normal) Range: 8-27 Glucose, Serum 117 mg/dL (Abnormal) Range: 65-99 :15 Lipid Panel With LDL/HDL Comments: PATIENT WAS FASTINGPERFORMED BY: Only-apartments Joypkr8538 [facility] [id number] Ratio LDL/HDL Ratio 3.7 {ratio_units} Range: 0.0-3.2 (Abnormal) Comments: LDL/HDL Ratio Men Women 1/2 Avg.Risk 1.0 1.5 Av g.Risk 3.6 3.2 2X Avg.Risk 6.2 5.0 3X Avg.Risk 8.0 6.1 LDL Cholesterol Calc 130 mg/dL (Abnormal) Range: 0-99 VLDL Cholesterol Peg 39 mg/dL (Normal) Range: 5-40 HDL Cholesterol 35 mg/dL (Abnormal) Comments: According to ATP-III Guidelines, HDL-C >59 mg/dL is considered anegative risk factor for CHD. Triglycerides 195 mg/dL (Abnormal) Range: 0-149 Cholesterol, Total 204 mg/dL (Abnormal) Range: 100-199 Vitamin B12 371 pg/mL (Normal) Comments: PATIENT WAS FASTINGPERFORMED BY: Only-apartments Fffpaq7580 [facility] [id number] :15 Range: 211-946 Vitamin D, 25-Hydroxy 56.4 ng/mL (Normal) Comments: PATIENT WAS FASTINGPERFORMED BY: [facility]ItM[facility] Region6370 [facility] [id number] :15 Range: 30.0-100.0 Comments: Vitamin D deficiency has been defined by the [place] [facility] and an Endocrine Society practice guideline as alevel of serum 25-OH vitamin D less than 20 ng/mL (1,2).The Endocrine Society went on to further define vitamin Dinsufficiency as a level between 21 and 29 ng/mL (2).1. IOM ([facility]). 2010. Dietary reference intakes for calcium and D. [place]: The National Academies Press.2. Mckenna Christie, Dane MACKENZIE, et al. Evaluation, treatment, and prevention of vitamin D deficiency: an Endocrine Society clinical practice guideline. JCEM. 2010; 96(7):1911-30. :33 HgA1C , Office (44695) HgA1C , Office 6.4 % (Normal) Range: 4.6 - 7.1 :27 Potassium Comments: Test performed at:[facility] [address] [place] [address] K 3.5 mmol/L (Normal) Range: 3.5-5.1 :59 Vitamin D Hydroxy (83896) Comments: PATIENT NOT FASTINGPERFORMED BY: [facility] LabJRKICKZ Jhlgab7860 SED Web RoadDublin [place] [id number] Vitamin D, 25-Hydroxy 40.6 ng/mL (Normal) Range: 30.0-100.0 Comments: Vitamin D deficiency has been defined by the [place] [facility] and an Endocrine Society practice guideline as alevel of serum 25-OH vitamin D less than 20 ng/mL (1,2).The Endocrine Society went on to further define vitamin Dinsufficiency as a level between 21 and 29 ng/mL (2).1. IOM ([facility] [employer] [facility]). 2010. Dietary reference intakes for calcium and D. [place]: The National Academies Press.2. Delma RIVERA, Mckenna ABDALLA, Dane MACKENZIE, et al. Evaluation, treatment, and prevention of vitamin D deficiency: an Endocrine Society clinical practice guideline. JCEM. 2010; 96(7):1911-30. :59 T4, FREE (THYROXINE) Comments: PATIENT NOT FASTINGPERFORMED BY: [facility] Vkykay4281 Doyle RoadDublin [place] [id number] Information: [id number] (39437) T4,Free(Direct) 1.22 ng/dL (Normal) Range: 0.82-1.77 :59 T3, FREE (TRIDOTHYRONINE) (34624) Comments: PATIENT NOT FASTINGPERFORMED BY: [facility]6370 [facility] [id number] Triiodothyronine,Free,Serum 3.2 pg/mL (Normal) Range: 2.0-4.4 :59 TSH (46764) Comments: PATIENT NOT FASTINGPERFORMED BY: [facility] Alxfmr9942 [facility] [id number] TSH 2.460 {uIU/mL} (Normal) Range: 0.450-4.500 :59 SED RATE ERYTHROCYTE (82717) Comments: PATIENT NOT FASTINGPERFORMED BY: LabMcl[facility] Region6370 [facility] [id number] Sedimentation Rate-Westergren 3 mm/h (Normal) Range: 0-40 :59 C-REACTIVE PROTEIN (89141) Comments: PATIENT NOT FASTINGPERFORMED BY: LabMcl[facility] Region6370 [facility] [id number] C-Reactive Protein, Quant 2.6 mg/L (Normal) Range: 0.0-4.9 :06 TSH (67081) Comments: PATIENT NOT FASTINGPERFORMED BY: LabMcl[facility] Region6370 [facility] [id number] TSH 1.920 {uIU/mL} (Normal) Range: 0.450-4.500 :06 CBC with auto diff Comments: PATIENT NOT FASTINGPERFORMED BY: [facility]6370 [facility] [id number] Information: [id number] (96733) Immature Grans (Abs) 0.0 {x10E3/uL} (Normal) Range: 0.0-0.1 Immature Granulocytes 0 % (Normal) Baso (Absolute) 0.1 {x10E3/uL} (Normal) Range: 0.0-0.2 Eos (Absolute) 0.2 {x10E3/uL} (Normal) Range: 0.0-0.4 Monocytes(Absolute) 0.5 {x10E3/uL} (Normal) Range: 0.1-0.9 Lymphs (Absolute) 3.1 {x10E3/uL} (Normal) Range: 0.7-3.1 Neutrophils (Absolute) 4.0 {x10E3/uL} (Normal) Range: 1.4-7.0 Basos 1 % (Normal) Eos 2 % (Normal) Monocytes 6 % (Normal) Lymphs 40 % (Normal) Neutrophils 51 % (Normal) Platelets 400 {x10E3/uL} (Abnormal) Range: 150-379 RDW 13.2 % (Normal) Range: 12.3-15.4 MCHC 32.9 g/dL (Normal) Range: 31.5-35.7 MCH 29.9 pg (Normal) Range: 26.6-33.0 MCV 91 fL (Normal) Range: 79-97 Hematocrit 41.0 % (Normal) Range: 34.0-46.6 Hemoglobin 13.5 g/dL (Normal) Range: 11.1-15.9 RBC 4.51 {x10E6/uL} (Normal) Range: 3.77-5.28 WBC 7.9 {x10E3/uL} (Normal) Range: 3.4-10.8 [id number] METABOLIC PANEL, COMPREHENSIVE Comments: PATIENT NOT FASTINGPERFORMED BY: [id number] [facility] [id number] ([id number]) ALT (SGPT) 6 [iU]/L (Normal) Range: 0-32 AST (SGOT) 10 [iU]/L (Normal) Range: 0-40 Alkaline Phosphatase, S 72 [iU]/L (Normal) Range: 39-117 Bilirubin, Total 0.3 mg/dL (Normal) Range: 0.0-1.2 A/G Ratio 1.6 (Normal) Range: 1.1-2.5 Globulin, Total 2.7 g/dL (Normal) Range: 1.5-4.5 Albumin, Serum 4.2 g/dL (Normal) Range: 3.5-4.8 Protein, Total, Serum 6.9 g/dL (Normal) Range: 6.0-8.5 Calcium, Serum 9.2 mg/dL (Normal) Range: 8.7-10.3 Carbon Dioxide, Total 27 mmol/L (Normal) Range: 18-29 Chloride, Serum 96 mmol/L (Abnormal) Range: 97-108 Potassium, Serum 4.1 mmol/L (Normal) Range: 3.5-5.2 Sodium, Serum 141 mmol/L (Normal) Range: 134-144 BUN/Creatinine Ratio 11 (Normal) Range: 11-26 eGFR If Africn Am 105 mL/min/1.73 (Normal) eGFR If NonAfricn Am 91 mL/min/1.73 (Normal) Creatinine, Serum 0.62 mg/dL (Normal) Range: 0.57-1.00 BUN 7 mg/dL (Abnormal) Range: 8-27 Glucose, Serum 111 mg/dL (Abnormal) Range: 65-99 [id number]:09 URINE HANSA CULTURE (JEWELS Comments: PATIENT NOT FASTINGPERFORMED BY: [facility] Xxkopn8324 [facility] [id number] Information: [place]:[facility] [place] [id number] COL COUNT) (31204) Result 1 CNSNSS (Abnormal) Comments: Coagulase negative Staphylococcus species, not Staphylococcussaprophyticus.3,000 Colonies/mLBased on resistance to oxacillin this isolate would be resistant toall currently available beta-lactam antimic robial agents, with theexception of the newer cephalosporins with anti-MRSA activity, such asCeftaroline S = Susceptible; I = Intermediate; R = Resistant P = Positive; N = Negative MICS are expressed in micrograms per mL Antibiotic RSLT#1 RSLT#2 RSLT#3 RSLT#4Ciprofloxacin RGentamicin SLevofloxaci n RNitrofurantoin SOxacillin RPenicillin RRifampin STetracycline STrimethoprim/Sulfa RVancomycin S Urine Final report Culture,Comprehens (Abnormal) ananth [id number] Urinalysis, Office (02450) UA - LEUKOCYTE ESTERASE Negative (Normal) UA - NITRITE Negative (Normal) URINE UROBILINGN JEWELS TIMED Normal mg/dL (Normal) UA - PROTEIN Negative mg/dL (Normal) UA - PH 6.5 (Normal) UA - BLOOD Negative (Normal) UA - SPECIFIC GRAVITY 1.015 (Normal) UA - KETONES Negative mg/dL (Normal) UA - BILIRUBIN Negative (Normal) UA - GLUCOSE Negative (Normal) [id number]-Tid-422806:40 Urine Drug Screen (VISTA) Comments: Has pt arrived? YTest performed at:[facility] [address] [place] [address] THC NEGATIVE (Normal) PCP NEGATIVE (Normal) OPIATES POSITIVE (Abnormal) METHADONE NEGATIVE (Normal) ECSTACY NEGATIVE (Normal) COCAINE NEGATIVE (Normal) BENZODIAZIPINE POSITIVE (Abnormal) BARBITIURATES NEGATIVE (Normal) AMPHETAMINES NEGATIVE (Normal) VISTA UDS PH 6 (Normal) TO BE CONFIRMED (Normal) Comments: CONFIRMATORY TESTING FOR ALL POSITIVE URINE DRUG SCREENRESULTS WILL ONLY BE SENT OUT UPON PHYSICIAN ORDER.VISTA Urine Drug Screen methods provide only preliminaryanalytical test results. A more specific alternate chemicalmethod must be used in order to obtain a confirmedanalytical result. Gas chromatography/mass spectrometery(GC/MS) is the preferred confirmatory method. Clinicalconsideration and profe ssional judgement should be appliedto any drug of abuse test result, particularly whenpreliminary positive results are used.URINE TCA TESTING MUST BE ORDERED SEPARATELY. USE TESTMNEMONIC: UTCA 36-Iqw-030803:25 Acetaminophen (Tylenol) Level Comments: Test performed at:[facility] [address] [place] [address] ACETAMINOPHEN < 2.0 ug/mL (Abnormal) Range: 10.0-30.0 72-Diw-376447:25 Basic Metabolic Profile (BMP) Comments: Test performed at:[facility] [address] [place] [address] GAP 8 (Normal) Range: 5-15 CO2 29.0 mmol/L (Normal) Range: 21.0-32.0 CL 99 mmol/L (Normal) Range: 98-107 K 3.0 mmol/L (Abnormal) Range: 3.5-5.1 NA 136 mmol/L (Normal) Range: 136-145 CA 8.5 mg/dL (Normal) Range: 8.5-10.1 BUN/CRE 10.0 {RATIO} (Normal) Range: 10-20 Estimated CRCL 53.67 ml/min (Normal) CREAT,SERUM 0.9 mg/dL (Normal) Range: 0.6-1.0 BUN 9 mg/dL (Normal) Range: 7-18 GLU 195 mg/dL (Abnormal) Range: 70-110 Comments: Fasting Glucose result greater than or equal to 126 mg/dLsuggests DIABETES MELLITUS per A.D.A. criteria. 81-Egq-961785:25 CBC W/Diff, Automated Comments: Test performed at:[facility] [address] [facility]. [place], [place] [id number] Absolute Lymph 0.55 {X10_3/ul} (Abnormal) Range: 0.83-4.51 Absolute Neut 9.8 {X10_3/uL} (Abnormal) Range: 2.0-7.7 IM GRAN % 0.200 % (Normal) Range: 0.0-0.9 Comments: IG% - Immature Granulocytes (promyelocytes, myelocytes andmetamyelocytes) > 1% indicates that a LEFT SHIFT is Present. BASO% 0.2 % (Normal) Range: 0-1 EO% 0.1 % (Normal) Range: 0-5 MONO% 8.0 % (Normal) Range: 0-10 LY% 4.9 % (Abnormal) Range: 19-41 NEUT% 86.6 % (Abnormal) Range: 47-70 MPV 10.5 fL (Normal) Range: 6.2-12.0 PLT 194 K/mm3 (Normal) Range: 150-450 RDW SD 41.9 fL (Normal) Range: 35.1-43.9 RDW CV 12.4 % (Normal) Range: 11.6-14.6 MCHC 32.4 {g/gl} (Normal) Range: 32-36 MCH 30.7 pg (Normal) Range: 27.0-32.0 MCV 94.6 fL (Normal) Range: 81-99 HCT 40.1 % (Normal) Range: 37-47 HGB 13.0 g/dL (Normal) Range: 12.0-15.0 RBC 4.24 {M/mm3} (Normal) Range: 4.2-5.4 WBC 11.3 K/mm3 (Abnormal) Range: 4.4-11.0 89-Rcf-539428:25 Partial Thromboplast Time Comments: Test performed at:[facility] [address] [facility] [place] [address] PTT 31.9 s (Normal) Range: 24.1-36.2 07-Ygj-504975:25 Prothrombin Time w/INR Comments: Test performed at:[facility] [address] [place], [place] [id number] INR 1.1 (Normal) PROTIME 14.0 s (Normal) Range: 11.7-14.9 00-Zns-20391:22 Basic Metabolic Profile (BMP) Comments: Test performed at:[facility] [address] [place] [address] GAP 8 (Normal) Range: 5-15 CO2 31.0 mmol/L (Normal) Range: 21.0-32.0 CL 101 mmol/L (Normal) Range: 98-107 K 3.1 mmol/L (Abnormal) Range: 3.5-5.1 NA 140 mmol/L (Normal) Range: 136-145 CA 8.2 mg/dL (Abnormal) Range: 8.5-10.1 BUN/CRE 14.3 {RATIO} (Normal) Range: 10-20 Estimated CRCL 46.43 ml/min (Normal) CREAT,SERUM 0.7 mg/dL (Normal) Range: 0.6-1.0 BUN 10 mg/dL (Normal) Range: 7-18 GLU 132 mg/dL (Abnormal) Range: 70-110 Comments: Fasting Glucose result greater than or equal to 126 mg/dLsuggests DIABETES MELLITUS per A.D.A. criteria. :22 CBC-Complete Blood Cnt No Diff Comments: Test performed at:[facility] [address] [place] [address] MPV 10.0 fL (Normal) Range: 6.2-12.0 PLT 222 K/mm3 (Normal) Range: 150-450 RDW SD 45.9 fL (Abnormal) Range: 35.1-43.9 RDW CV 12.9 % (Normal) Range: 11.6-14.6 MCHC 32.8 {g/gl} (Normal) Range: 32-36 MCH 31.8 pg (Normal) Range: 27.0-32.0 MCV 96.9 fL (Normal) Range: 81-99 HCT 36.9 % (Abnormal) Range: 37-47 HGB 12.1 g/dL (Normal) Range: 12.0-15.0 RBC 3.81 {M/mm3} (Abnormal) Range: 4.2-5.4 WBC 8.2 K/mm3 (Normal) Range: 4.4-11.0 :48 CBC-Complete Blood Cnt No Diff Comments: Test performed at:[facility] [address] [facility] [place] [address] MPV 10.4 fL (Normal) Range: 6.2-12.0 PLT 193 K/mm3 (Normal) Range: 150-450 RDW SD 43.5 fL (Normal) Range: 35.1-43.9 RDW CV 12.7 % (Normal) Range: 11.6-14.6 MCHC 32.3 {g/gl} (Normal) Range: 32-36 MCH 31.6 pg (Normal) Range: 27.0-32.0 MCV 97.7 fL (Normal) Range: 81-99 HCT 33.7 % (Abnormal) Range: 37-47 HGB 10.9 g/dL (Abnormal) Range: 12.0-15.0 RBC 3.45 {M/mm3} (Abnormal) Range: 4.2-5.4 WBC 7.2 K/mm3 (Normal) Range: 4.4-11.0 :52 Basic Metabolic Profile (BMP) Comments: Test performed at:[facility] [address] [facility]. [place], [place] [id number] GAP 8 (Normal) Range: 5-15 CO2 26.0 mmol/L (Normal) Range: 21.0-32.0 CL 103 mmol/L (Normal) Range: 98-107 K 3.6 mmol/L (Normal) Range: 3.5-5.1 NA 137 mmol/L (Normal) Range: 136-145 CA 8.4 mg/dL (Abnormal) Range: 8.5-10.1 BUN/CRE 12.9 {RATIO} (Normal) Range: 10-20 Estimated CRCL 46.43 ml/min (Normal) CREAT,SERUM 0.7 mg/dL (Normal) Range: 0.6-1.0 BUN 9 mg/dL (Normal) Range: 7-18 GLU 131 mg/dL (Abnormal) Range: 70-110 Comments: Fasting Glucose result greater than or equal to 126 mg/dLsuggests DIABETES MELLITUS per A.D.A. criteria. 22-Pvb-28281:52 CBC-Complete Blood Cnt No Diff Comments: Test performed at:[facility] [address] [facility] [place] [address] MPV 10.0 fL (Normal) Range: 6.2-12.0 PLT 231 K/mm3 (Normal) Range: 150-450 RDW SD 41.9 fL (Normal) Range: 35.1-43.9 RDW CV 12.4 % (Normal) Range: 11.6-14.6 MCHC 32.6 {g/gl} (Normal) Range: 32-36 MCH 31.5 pg (Normal) Range: 27.0-32.0 MCV 96.5 fL (Normal) Range: 81-99 HCT 36.2 % (Abnormal) Range: 37-47 HGB 11.8 g/dL (Abnormal) Range: 12.0-15.0 RBC 3.75 {M/mm3} (Abnormal) Range: 4.2-5.4 WBC 8.7 K/mm3 (Normal) Range: 4.4-11.0 36-Yef-310495:00 Bedside Glucose Comments: Test performed at:[facility] [address] [facility] [place] [address] BEDSIDE GLU 138 mg/dL (Abnormal) Range: 70-110 Comments: No Action RequiredMANAGEMENT OF PATIENT CARE PER NURSING PROTOCOL 00-Jxn-736277:12 Bedside Glucose Comments: Test performed at:[facility] [address] [facility] [place] [address] BEDSIDE GLU 108 mg/dL (Normal) Range: 70-110 Comments: No Action RequiredMANAGEMENT OF PATIENT CARE PER NURSING PROTOCOL 75-Nbn-07080:07 VITAMIN B-12 (CYANOCOBALAMIN) Comments: PATIENT WAS FASTINGPERFORMED BY: LabCoCarrier ClinicQlumts0825 [facility] [id number] ([id number]) Vitamin B12 498 pg/mL (Normal) Range: 211-946 :07 MICROALBUMIN: CREATININE RATIO Comments: PATIENT WAS FASTINGPERFORMED BY: [employer] Jcnrnt4985 [facility] [id number] ([id number]) AND (15283) Microalb/Creat Ratio 24.7 {mg/g_creat} (Normal) Range: 0.0-30.0 Microalbumin, Urine 36.2 ug/mL (Abnormal) Range: 0.0-17.0 Creatinine, Urine 146.6 mg/dL (Normal) Range: 15.0-278.0 :07 CBC W/AUTO DIFF WBC Comments: PATIENT WAS FASTINGPERFORMED BY: [facility] Stroke6370 [facility] [id number] Information: [id number] (70615) Immature Grans (Abs) 0.0 {x10E3/uL} (Normal) Range: 0.0-0.1 Immature Granulocytes 0 % (Normal) Baso (Absolute) 0.0 {x10E3/uL} (Normal) Range: 0.0-0.2 Eos (Absolute) 0.2 {x10E3/uL} (Normal) Range: 0.0-0.4 Monocytes(Absolute) 0.5 {x10E3/uL} (Normal) Range: 0.1-0.9 Lymphs (Absolute) 2.4 {x10E3/uL} (Normal) Range: 0.7-3.1 Neutrophils (Absolute) 3.9 {x10E3/uL} (Normal) Range: 1.4-7.0 Basos 0 % (Normal) Eos 3 % (Normal) Monocytes 7 % (Normal) Lymphs 34 % (Normal) Neutrophils 56 % (Normal) Platelets 297 {x10E3/uL} (Normal) Range: 150-379 RDW 14.2 % (Normal) Range: 12.3-15.4 MCHC 32.7 g/dL (Normal) Range: 31.5-35.7 MCH 29.7 pg (Normal) Range: 26.6-33.0 MCV 91 fL (Normal) Range: 79-97 Hematocrit 47.7 % (Abnormal) Range: 34.0-46.6 Hemoglobin 15.6 g/dL (Normal) Range: 11.1-15.9 RBC 5.25 {x10E6/uL} (Normal) Range: 3.77-5.28 WBC 7.0 {x10E3/uL} (Normal) Range: 3.4-10.8 :07 TSH (14574) Comments: PATIENT WAS FASTINGPERFORMED BY: Only-apartments Yzpgml8445 [facility] [id number] TSH 4.510 {uIU/mL} (Abnormal) Range: 0.450-4.500 :07 LIPID PANEL (77650) Comments: PATIENT WAS FASTINGPERFORMED BY: [employer] Rbsctc1294 [facility] [id number] VLDL Cholesterol Peg VLDLCH mg/dL (Normal) Range: 5-40 Comments: The calculation for the VLDL cholesterol is not valid whentriglyceride level is >400 mg/dL.Triglyceride result indicated is too high for an accurate LDLcholesterol estimation. HDL Cholesterol 37 mg/dL (Abnormal) Comments: According to ATP-III Guidelines, HDL-C >59 mg/dL is considered anegative risk factor for CHD. Triglycerides 488 mg/dL (Abnormal) Range: 0-149 Cholesterol, Total 226 mg/dL (Abnormal) Range: 100-199 :07 METABOLIC PANEL, COMPREHENSIVE Comments: PATIENT WAS FASTINGPERFORMED BY: BRCK IncCarrier ClinicTirjoy7852 [facility] [id number] (02478) ALT (SGPT) 10 [iU]/L (Normal) Range: 0-32 AST (SGOT) 13 [iU]/L (Normal) Range: 0-40 Alkaline Phosphatase, S 71 [iU]/L (Normal) Range: 39-117 Bilirubin, Total 0.5 mg/dL (Normal) Range: 0.0-1.2 A/G Ratio 1.8 (Normal) Range: 1.1-2.5 Globulin, Total 2.7 g/dL (Normal) Range: 1.5-4.5 Albumin, Serum 4.8 g/dL (Normal) Range: 3.5-4.8 Protein, Total, Serum 7.5 g/dL (Normal) Range: 6.0-8.5 Calcium, Serum 9.8 mg/dL (Normal) Range: 8.7-10.3 Carbon Dioxide, Total 25 mmol/L (Normal) Range: 18-29 Chloride, Serum 95 mmol/L (Abnormal) Range: 97-108 Potassium, Serum 4.4 mmol/L (Normal) Range: 3.5-5.2 Sodium, Serum 141 mmol/L (Normal) Range: 134-144 BUN/Creatinine Ratio 18 (Normal) Range: 11-26 eGFR If Africn Am 91 mL/min/1.73 (Normal) eGFR If NonAfricn Am 79 mL/min/1.73 (Normal) Creatinine, Serum 0.76 mg/dL (Normal) Range: 0.57-1.00 BUN 14 mg/dL (Normal) Range: 8-27 Glucose, Serum 145 mg/dL (Abnormal) Range: 65-99 :22 HgA1C , Office (34178) HgA1C , Office 6.9 % (Normal) Range: 4.6 - 7.1 :09 BMP GAP 6 (Normal) Range: 5-15 CO2 30.0 mmol/L (Normal) Range: 21.0-32.0 CL 104 mmol/L (Normal) Range: 98-107 K 3.8 mmol/L (Normal) Range: 3.5-5.1 NA 140 mmol/L (Normal) Range: 136-145 CA 9.5 mg/dL (Normal) Range: 8.5-10.1 BC 15.6 {RATIO} (Normal) Range: 10-20 ECRCL 51.59 ml/min (Normal) CREAT 0.9 mg/dL (Normal) Range: 0.6-1.0 BUN 14 mg/dL (Normal) Range: 7-18 GLU 122 mg/dL (Abnormal) Range: 70-110 Comments: Fasting Glucose result from 110 to <126 mg/dLsuggests IMPAIRED HOMEOSTASIS per A.D.A. criteria. :09 CBCD ALC 2.14 {X10_3/ul} (Normal) Range: 0.83-4.51 ANC 2.6 {X10_3/uL} (Normal) Range: 2.0-7.7 IG% 0.200 % (Normal) Range: 0.0-0.9 Comments: IG% - Immature Granulocytes (promyelocytes, myelocytes andmetamyelocytes) > 1% indicates that a LEFT SHIFT is Present. B% 1.4 % (Abnormal) Range: 0-1 E% 3.6 % (Normal) Range: 0-5 M% 9.7 % (Normal) Range: 0-10 L% 38.3 % (Normal) Range: 19-41 N% 46.8 % (Abnormal) Range: 47-70 MPV 10.1 fL (Normal) Range: 6.2-12.0 PLT 282 K/mm3 (Normal) Range: 150-450 RDWSD 45.5 fL (Abnormal) Range: 35.1-43.9 RDWCV 13.0 % (Normal) Range: 11.6-14.6 MCHC 33.0 {g/gl} (Normal) Range: 32-36 MCH 32.1 pg (Abnormal) Range: 27.0-32.0 MCV 97.1 fL (Normal) Range: 81-99 HCT 43.0 % (Normal) Range: 37-47 HGB 14.2 g/dL (Normal) Range: 12.0-15.0 RBC 4.43 {M/mm3} (Normal) Range: 4.2-5.4 WBC 5.6 K/mm3 (Normal) Range: 4.4-11.0 :09 MRSA+SAID SCRN See Note (Normal) Comments: Results called [facility] 08/07/14-70[facility] [phone]. Comments: Copy of report sent to Infection Control Printer MS#[id number] 08/07/14 5757 [facility]. RESULTS PRINTED MS#[id number] S. AUREUS S. aureus PositiveMRSA MRSA Negative :34 VITAMIN B-12 (CYANOCOBALAMIN) Comments: PATIENT WAS FASTINGPERFORMED BY: Only-apartmentsCarrier ClinicEcanqn1774 [facility] [id number] (16823) Vitamin B12 1631 pg/mL (Abnormal) Range: 211-946 :34 CBC W/AUTO DIFF WBC Comments: PATIENT WAS FASTINGPERFORMED BY: Only-apartmentsCarrier ClinicNnanip9932 [facility] [id number] Information: [id number] (73751) Immature Grans (Abs) 0.0 {x10E3/uL} (Normal) Range: 0.0-0.1 Immature Granulocytes 0 % (Normal) Baso (Absolute) 0.0 {x10E3/uL} (Normal) Range: 0.0-0.2 Eos (Absolute) 0.2 {x10E3/uL} (Normal) Range: 0.0-0.4 Monocytes(Absolute) 0.4 {x10E3/uL} (Normal) Range: 0.1-0.9 Lymphs (Absolute) 1.8 {x10E3/uL} (Normal) Range: 0.7-3.1 Neutrophils (Absolute) 1.7 {x10E3/uL} (Normal) Range: 1.4-7.0 Basos 1 % (Normal) Eos 4 % (Normal) Monocytes 9 % (Normal) Lymphs 44 % (Normal) Neutrophils 42 % (Normal) Platelets 250 {x10E3/uL} (Normal) Range: 150-379 RDW 13.7 % (Normal) Range: 12.3-15.4 MCHC 33.3 g/dL (Normal) Range: 31.5-35.7 MCH 31.6 pg (Normal) Range: 26.6-33.0 MCV 95 fL (Normal) Range: 79-97 Hematocrit 39.9 % (Normal) Range: 34.0-46.6 Hemoglobin 13.3 g/dL (Normal) Range: 11.1-15.9 RBC 4.21 {x10E6/uL} (Normal) Range: 3.77-5.28 WBC 4.0 {x10E3/uL} (Normal) Range: 3.4-10.8 39-Apj-20826:34 METABOLIC PANEL, COMPREHENSIVE Comments: PATIENT WAS FASTINGPERFORMED BY: [facility] Qcfoki1892 [facility] [id number] (45584) ALT (SGPT) 10 [iU]/L (Normal) Range: 0-32 AST (SGOT) 11 [iU]/L (Normal) Range: 0-40 Alkaline Phosphatase, S 56 [iU]/L (Normal) Range: 39-117 Bilirubin, Total 0.4 mg/dL (Normal) Range: 0.0-1.2 A/G Ratio 2.2 (Normal) Range: 1.1-2.5 Globulin, Total 2.0 g/dL (Normal) Range: 1.5-4.5 Albumin, Serum 4.3 g/dL (Normal) Range: 3.5-4.8 Protein, Total, Serum 6.3 g/dL (Normal) Range: 6.0-8.5 Calcium, Serum 9.5 mg/dL (Normal) Range: 8.6-10.2 Carbon Dioxide, Total 26 mmol/L (Normal) Range: 18-29 Chloride, Serum 101 mmol/L (Normal) Range: 97-108 Potassium, Serum 4.6 mmol/L (Normal) Range: 3.5-5.2 Sodium, Serum 142 mmol/L (Normal) Range: 134-144 BUN/Creatinine Ratio 17 (Normal) Range: 11-26 eGFR If Africn Am 91 mL/min/1.73 (Normal) eGFR If NonAfricn Am 79 mL/min/1.73 (Normal) Creatinine, Serum 0.76 mg/dL (Normal) Range: 0.57-1.00 BUN 13 mg/dL (Normal) Range: 8-27 Glucose, Serum 127 mg/dL (Abnormal) Range: 65-99 :34 LIPID PANEL (55808) Comments: PATIENT WAS FASTINGPERFORMED BY: LabCoCarrier ClinicMarmok4983 [facility] [id number] LDL/HDL Ratio 3.3 {ratio_units} (Abnormal) Range: 0.0-3.2 Comments: LDL/HDL Ratio Men Women 1/2 Avg.Risk 1.0 1.5 Av g.Risk 3.6 3.2 2X Avg.Risk 6.2 5.0 3X Avg.Risk 8.0 6.1 LDL Cholesterol Calc 109 mg/dL (Abnormal) Range: 0-99 VLDL Cholesterol Peg 48 mg/dL (Abnormal) Range: 5-40 HDL Cholesterol 33 mg/dL (Abnormal) Comments: According to ATP-III Guidelines, HDL-C >59 mg/dL is considered anegative risk factor for CHD. Triglycerides 240 mg/dL (Abnormal) Range: 0-149 Cholesterol, Total 190 mg/dL (Normal) Range: 100-199 :12 Microscopic Examination Comments: PATIENT WAS FASTINGPERFORMED BY: [facility] Votdwm5102 [facility] [place] [id number] Bacteria None seen (Normal) Epithelial Cells (non renal) 0-10 {/hpf} (Normal) Range: 0 - 10 RBC None seen {/hpf} (Normal) Range: 0 - 2 WBC 0-5 {/hpf} (Normal) Range: 0 - 5 :12 TSH (26699) Comments: PATIENT WAS FASTINGPERFORMED BY: [facility] Safbfo6619 [facility] [place] [id number]; non-emergent till apt this week TSH 1.560 {uIU/mL} (Normal) Range: 0.450-4.500 :12 URINALYSIS, W/ MICRO (35365) Comments: PATIENT WAS FASTINGPERFORMED BY: [facility] Mchejx7792 [facility] [id number] Microscopic Examination See below: (Normal) Comments: Microscopic was indicated and was performed. Microscopic Examination MICRON (Normal) Comments: Microscopic follows if indicated. Nitrite, Urine Negative (Normal) Urobilinogen,Semi-Qn 0.2 mg/dL (Normal) Range: 0.0-1.9 Bilirubin Negative (Normal) Occult Blood Negative (Normal) Ketones Negative (Normal) Glucose Negative (Normal) Protein Trace (Normal) WBC Esterase Negative (Normal) Appearance Clear (Normal) Urine-Color Yellow (Normal) pH 8.0 (Abnormal) Range: 5.0-7.5 Specific Perrin 1.014 (Normal) Range: 1.005-1.030 :12 Vitamin D Hydroxy (07361) Comments: PATIENT WAS FASTINGPERFORMED BY: [facility] Xwjxwi1746 [facility] [id number] Vitamin D, 25-Hydroxy 42.2 ng/mL (Normal) Range: 30.0-100.0 Comments: Vitamin D deficiency has been defined by the [place] [employer] and an Endocrine Society practice guideline as alevel of serum 25-OH vitamin D less than 20 ng/mL (1,2).The Endocrine Society went on to further define vitamin Dinsufficiency as a level between 21 and 29 ng/mL (2).1. IOM ([place] [employer]). 2010. Dietary reference intakes for calcium and D. [place]: The National Academies Press.2. Delma MF, Mckenna ABDALLA, Dane MACKENZIE, et al. Evaluation, treatment, and prevention of vitamin D deficiency: an Endocrine Society clinical practice guideline. JCEM. 2010; 96(7):1911-30. :12 MICROALBUMIN: CREATININE RATIO Comments: PATIENT WAS FASTINGPERFORMED BY: Only-apartmentsCarrier ClinicIwdxht3480 [facility] [id number] ([id number]) AND (32635) Microalb/Creat Ratio 4.7 {mg/g_creat} (Normal) Range: 0.0-30.0 Creatinine, Urine 49.4 mg/dL (Normal) Range: 15.0-278.0 Microalbumin, Urine 2.3 ug/mL (Normal) Range: 0.0-17.0 :12 METABOLIC PANEL, Comments: PATIENT WAS FASTINGPERFORMED BY: Only-apartmentsCarrier ClinicVsnbeh2113 [facility] [id number] Information: [id number] COMPREHENSIVE (46735) ALT (SGPT) 12 [iU]/L (Normal) Range: 0-32 AST (SGOT) 11 [iU]/L (Normal) Range: 0-40 Alkaline Phosphatase, S 65 [iU]/L (Normal) Range: 39-117 Bilirubin, Total 0.5 mg/dL (Normal) Range: 0.0-1.2 A/G Ratio 1.9 (Normal) Range: 1.1-2.5 Globulin, Total 2.2 g/dL (Normal) Range: 1.5-4.5 Albumin, Serum 4.2 g/dL (Normal) Range: 3.5-4.8 Protein, Total, Serum 6.4 g/dL (Normal) Range: 6.0-8.5 Calcium, Serum 9.0 mg/dL (Normal) Range: 8.6-10.2 Carbon Dioxide, Total 27 mmol/L (Normal) Range: 18-29 Chloride, Serum 98 mmol/L (Normal) Range: 97-108 Potassium, Serum 4.8 mmol/L (Normal) Range: 3.5-5.2 Sodium, Serum 141 mmol/L (Normal) Range: 134-144 BUN/Creatinine Ratio 23 (Normal) Range: 11-26 eGFR If Africn Am 105 mL/min/1.73 (Normal) eGFR If NonAfricn Am 91 mL/min/1.73 (Normal) Creatinine, Serum 0.64 mg/dL (Normal) Range: 0.57-1.00 BUN 15 mg/dL (Normal) Range: 8-27 Glucose, Serum 108 mg/dL (Abnormal) Range: 65-99 :12 LIPID PANEL (03015) Comments: PATIENT WAS FASTINGPERFORMED BY: [facility] [id number] LDL/HDL Ratio 2.7 {ratio_units} (Normal) Range: 0.0-3.2 LDL Cholesterol Calc 107 mg/dL (Abnormal) Range: 0-99 VLDL Cholesterol Peg 33 mg/dL (Normal) Range: 5-40 HDL Cholesterol 40 mg/dL (Normal) Comments: According to ATP-III Guidelines, HDL-C >59 mg/dL is considered anegative risk factor for CHD. Cholesterol, Total 180 mg/dL (Normal) Range: 100-199 Triglycerides 167 mg/dL (Abnormal) Range: 0-149 :12 VITAMIN B-12 (CYANOCOBALAMIN) Comments: PATIENT WAS FASTINGPERFORMED BY: [facility]roke6370 [facility] [id number] (98325) Vitamin B12 287 pg/mL (Normal) Range: 211-946 :34 HgA1C , Office (76674) HgA1C , Office 6.3 % (Normal) Range: 4.6 - 7.1 :55 Creatine Kinase Total (48959) Comments: PATIENT NOT FASTINGPERFORMED BY: [employer] [facility] [id number] Creatine Kinase,Total,Serum 105 U/L (Normal) Range: 24-173 :55 TSH (10847) Comments: PATIENT NOT FASTINGPERFORMED BY: [employer] [facility] [id number] TSH 1.590 {uIU/mL} (Normal) Range: 0.450-4.500 7-Rss-403894:55 METABOLIC PANEL, Comments: PATIENT NOT FASTINGPERFORMED BY: CLARITA [facility] Pnspxp7461 [facility] [id number] Information: [id number] COMPREHENSIVE (39910) ALT (SGPT) 13 [iU]/L (Normal) Range: 0-32 AST (SGOT) 17 [iU]/L (Normal) Range: 0-40 Alkaline Phosphatase, S 74 [iU]/L (Normal) Range: 39-117 Bilirubin, Total 0.3 mg/dL (Normal) Range: 0.0-1.2 A/G Ratio 1.9 (Normal) Range: 1.1-2.5 Globulin, Total 2.4 g/dL (Normal) Range: 1.5-4.5 Albumin, Serum 4.5 g/dL (Normal) Range: 3.5-4.8 Protein, Total, Serum 6.9 g/dL (Normal) Range: 6.0-8.5 Calcium, Serum 9.4 mg/dL (Normal) Range: 8.6-10.2 Carbon Dioxide, Total 25 mmol/L (Normal) Range: 19-28 Comments: Effective February 17, 2014, the reference interval for Carbon Dioxide, Total will be changing to: 0 - 30 days 15 - 27 31 d - 5 months 15 - 26 6 m - 11 months 15 - 25 1 - 12 years 17 - 27 > 12 years 18 - 29 Chloride, Serum 98 mmol/L (Normal) Range: 97-108 Potassium, Serum 4.0 mmol/L (Normal) Range: 3.5-5.2 Sodium, Serum 140 mmol/L (Normal) Range: 134-144 BUN/Creatinine Ratio 16 (Normal) Range: 11-26 eGFR If Africn Am 90 mL/min/1.73 (Normal) eGFR If NonAfricn Am 78 mL/min/1.73 (Normal) Creatinine, Serum 0.77 mg/dL (Normal) Range: 0.57-1.00 BUN 12 mg/dL (Normal) Range: 8-27 Glucose, Serum 118 mg/dL (Abnormal) Range: 65-99 :33 HgA1C , Office (69094) HgA1C , Office 6.7 % (Normal) Range: 4.6 - 7.1 :46 MICROALBUMIN: CREATININE RATIO Comments: PATIENT WAS FASTINGPERFORMED BY: [facility] [id number] Doyle RoadDublin [place] [id number] ([id number]) AND ([id number]) Microalb/Creat Ratio 20.0 {mg/g_creat} (Normal) Range: 0.0-30.0 Microalbumin, Urine 21.7 ug/mL (Abnormal) Range: 0.0-17.0 Creatinine, Urine 108.5 mg/dL (Normal) Range: 15.0-278.0 :46 TSH ([id number]) Comments: PATIENT WAS FASTINGPERFORMED BY: [facility] [id number] Doyle RoadDublin [place] [id number] TSH 2.670 {uIU/mL} (Normal) Range: 0.450-4.500 :46 Vitamin D Hydroxy (56269) Comments: PATIENT WAS FASTINGPERFORMED BY: [facility] [id number] [address] RoadDublin [place] [id number] Vitamin D, 25-Hydroxy 42.9 ng/mL (Normal) Range: 30.0-100.0 Comments: Vitamin D deficiency has been defined by the [place] of[facility] and an Endocrine Society practice guideline as alevel of serum 25-OH vitamin D less than 20 ng/mL (1,2).The Endocrine Society went on to further define vitamin Dinsufficiency as a level between 21 and 29 ng/mL (2).1. IOM ([place] of Medicine). 2010. Dietary reference intakes for calcium and D. [place]: The National Academies Press.2. Delma MF, Mckenna NC, Dane MACKENZIE, et al. Evaluation, treatment, and prevention of vitamin D deficiency: an Endocrine Society clinical practice guideline. JCEM. 2010; 96(7):1911-30. :46 CBC, PLATELETS & AUT DIFF Comments: PATIENT WAS FASTINGPERFORMED BY: [facility] Tdktsd1598 [facility] HospitalD[facility] [place] [id number] Information: [id number] ([id number]) Immature Grans (Abs) 0.0 {x10E3/uL} (Normal) Range: 0.0-0.1 Immature Granulocytes 0 % (Normal) Range: 0-2 Baso (Absolute) 0.0 {x10E3/uL} (Normal) Range: 0.0-0.2 Eos (Absolute) 0.1 {x10E3/uL} (Normal) Range: 0.0-0.4 Monocytes(Absolute) 0.7 {x10E3/uL} (Normal) Range: 0.1-0.9 Lymphs (Absolute) 2.3 {x10E3/uL} (Normal) Range: 0.7-3.1 Neutrophils (Absolute) 5.5 {x10E3/uL} (Normal) Range: 1.4-7.0 Basos 1 % (Normal) Range: 0-3 Eos 1 % (Normal) Range: 0-5 Monocytes 8 % (Normal) Range: 4-12 Lymphs 27 % (Normal) Range: 14-46 Neutrophils 63 % (Normal) Range: 40-74 Platelets 289 {x10E3/uL} (Normal) Range: 155-379 RDW 13.8 % (Normal) Range: 12.3-15.4 MCHC 33.2 g/dL (Normal) Range: 31.5-35.7 MCH 30.8 pg (Normal) Range: 26.6-33.0 MCV 93 fL (Normal) Range: 79-97 Hematocrit 44.9 % (Normal) Range: 34.0-46.6 Hemoglobin 14.9 g/dL (Normal) Range: 11.1-15.9 RBC 4.84 {x10E6/uL} (Normal) Range: 3.77-5.28 WBC 8.7 {x10E3/uL} (Normal) Range: 3.4-10.8 53-Jct-462911:46 VITAMIN B-12 (CYANOCOBALAMIN) Comments: PATIENT WAS FASTINGPERFORMED BY: LabCoNicole [place] 6269470 [facility] [id number] ([id number]) Vitamin B12 382 pg/mL (Normal) Range: 211-946 53-Zje-936108:46 METABOLIC PANEL, COMPREHENSIVE Comments: PATIENT WAS FASTINGPERFORMED BY: LabCoCarrier ClinicPfseax6936 [facility] [id number] ([id number]) ALT (SGPT) 15 [iU]/L (Normal) Range: 0-32 AST (SGOT) 12 [iU]/L (Normal) Range: 0-40 Alkaline Phosphatase, S 61 [iU]/L (Normal) Range: 39-117 Bilirubin, Total 0.4 mg/dL (Normal) Range: 0.0-1.2 A/G Ratio 1.8 (Normal) Range: 1.1-2.5 Globulin, Total 2.6 g/dL (Normal) Range: 1.5-4.5 Albumin, Serum 4.6 g/dL (Normal) Range: 3.5-4.8 Protein, Total, Serum 7.2 g/dL (Normal) Range: 6.0-8.5 Calcium, Serum 9.7 mg/dL (Normal) Range: 8.6-10.2 Carbon Dioxide, Total 27 mmol/L (Normal) Range: 19-28 Chloride, Serum 100 mmol/L (Normal) Range: 97-108 Potassium, Serum 4.1 mmol/L (Normal) Range: 3.5-5.2 Sodium, Serum 142 mmol/L (Normal) Range: 134-144 BUN/Creatinine Ratio 15 (Normal) Range: 11-26 eGFR If Africn Am 95 mL/min/1.73 (Normal) eGFR If NonAfricn Am 82 mL/min/1.73 (Normal) Creatinine, Serum 0.74 mg/dL (Normal) Range: 0.57-1.00 BUN 11 mg/dL (Normal) Range: 8-27 Glucose, Serum 130 mg/dL (Abnormal) Range: 65-99 87-Tom-855580:46 LIPID PANEL (74190) Comments: PATIENT WAS FASTINGPERFORMED BY: LabCoCarrier ClinicFufcgh7625 [facility] [id number] LDL/HDL Ratio 3.4 {ratio_units} (Abnormal) Range: 0.0-3.2 LDL Cholesterol Calc 130 mg/dL (Abnormal) Range: 0-99 VLDL Cholesterol Peg 57 mg/dL (Abnormal) Range: 5-40 HDL Cholesterol 38 mg/dL (Abnormal) Comments: According to ATP-III Guidelines, HDL-C >59 mg/dL is considered anegative risk factor for CHD. Triglycerides 287 mg/dL (Abnormal) Range: 0-149 Cholesterol, Total 225 mg/dL (Abnormal) Range: 100-199 1-Dng-034703:44 HgA1C , Office (89213) HgA1C , Office 6.6 % (Normal) Range: 4.6 - 7.1 :43 CBC, Platelets & Auto Diff Comments: PATIENT NOT FASTINGPERFORMED BY: LabCoCarrier ClinicGonewz4402 [facility] [id number] Information: [id number] (42069) Immature Grans (Abs) 0.0 {x10E3/uL} (Normal) Range: 0.0-0.1 Immature Granulocytes 0 % (Normal) Range: 0-2 Baso (Absolute) 0.0 {x10E3/uL} (Normal) Range: 0.0-0.2 Eos (Absolute) 0.2 {x10E3/uL} (Normal) Range: 0.0-0.4 Monocytes(Absolute) 0.4 {x10E3/uL} (Normal) Range: 0.1-0.9 Lymphs (Absolute) 2.5 {x10E3/uL} (Normal) Range: 0.7-3.1 Neutrophils (Absolute) 2.3 {x10E3/uL} (Normal) Range: 1.4-7.0 Basos 1 % (Normal) Range: 0-3 Eos 3 % (Normal) Range: 0-5 Monocytes 7 % (Normal) Range: 4-12 Lymphs 46 % (Normal) Range: 14-46 Neutrophils 43 % (Normal) Range: 40-74 Platelets 239 {x10E3/uL} (Normal) Range: 155-379 RDW 13.6 % (Normal) Range: 12.3-15.4 MCHC 33.7 g/dL (Normal) Range: 31.5-35.7 MCH 31.4 pg (Normal) Range: 26.6-33.0 Hematocrit 41.2 % (Normal) Range: 34.0-46.6 MCV 93 fL (Normal) Range: 79-97 Hemoglobin 13.9 g/dL (Normal) Range: 11.1-15.9 RBC 4.42 {x10E6/uL} (Normal) Range: 3.77-5.28 WBC 5.4 {x10E3/uL} (Normal) Range: 3.4-10.8 :43 Metabolic Panel, Basic (73931) Comments: PATIENT NOT FASTINGPERFORMED BY: [facility]6370 [facility] [id number] Calcium, Serum 9.4 mg/dL (Normal) Range: 8.6-10.2 Carbon Dioxide, Total 24 mmol/L (Normal) Range: 19-28 Chloride, Serum 102 mmol/L (Normal) Range: 97-108 Potassium, Serum 3.6 mmol/L (Normal) Range: 3.5-5.2 Sodium, Serum 140 mmol/L (Normal) Range: 134-144 BUN/Creatinine Ratio 17 (Normal) Range: 11-26 eGFR If Africn Am 84 mL/min/1.73 (Normal) eGFR If NonAfricn Am 73 mL/min/1.73 (Normal) Creatinine, Serum 0.82 mg/dL (Normal) Range: 0.57-1.00 BUN 14 mg/dL (Normal) Range: 8-27 Glucose, Serum 106 mg/dL (Abnormal) Range: 65-99 :10 HANSA CULTURE-OTHER (11753) Comments: PATIENT NOT FASTINGPERFORMED BY: [facility]6370 [facility] [id number] Information: SRC:THRT [id number] Result 1 RFMNR (Normal) Comments: Mixed growth consisting of multiple gram negative rods and routinerespiratory vicente. Upper Respiratory Culture Final report (Normal) :56 Rapid Strep Test, Office (29909) Rapid Strep Test, Office Negative (Normal) :03 Blood Glucose , Office (38903) Blood Glucose , Office 150 (Normal) :14 PPD (12283) Comments: Lot: [id number]: 12/17Amt: 0.1mlRoute: intradermalSite: R FAGiven by: ANGEL Merlos SKIN TEST INTRADERMAL TB negative (Normal) :39 HgA1C , Office (32777) HgA1C , Office 6.4 % (Normal) Range: 4.6 - 7.1 :31 Microscopic Examination Comments: PATIENT WAS FASTINGPERFORMED BY: Only-apartments Ehntdw3838 [facility] [id number] Bacteria Few (Normal) Mucus Threads Present (Normal) Epithelial Cells (non renal) 0-10 {/hpf} (Normal) Range: 0 - 10 RBC 0-3 {/hpf} (Normal) Range: 0 - 3 WBC 0-5 {/hpf} (Normal) Range: 0 - 5 :31 MICROALBUMIN: CREATININE RATIO Comments: PATIENT WAS FASTINGPERFORMED BY: Only-apartments Bzgdfm7154 [facility] [id number] ([id number]) AND (16989) Microalb/Creat Ratio 12.6 {mg/g_creat} (Normal) Range: 0.0-30.0 Microalbumin, Urine 9.2 ug/mL (Normal) Range: 0.0-17.0 Creatinine, Urine 73.3 mg/dL (Normal) Range: 15.0-278.0 CBC WITH MANUAL DIFF Comments: PATIENT WAS FASTINGPERFORMED BY: Only-apartmentsCarrier ClinicNhsqri0143 [facility] [id number] Information: [id number] (38504) Immature Grans (Abs) 0.0 {x10E3/uL} (Normal) Range: 0.0-0.1 Immature Granulocytes 0 % (Normal) Range: 0-2 Baso (Absolute) 0.0 {x10E3/uL} (Normal) Range: 0.0-0.2 Eos (Absolute) 0.2 {x10E3/uL} (Normal) Range: 0.0-0.4 Monocytes(Absolute) 0.4 {x10E3/uL} (Normal) Range: 0.1-1.0 Lymphs (Absolute) 2.0 {x10E3/uL} (Normal) Range: 0.7-4.5 Neutrophils (Absolute) 2.0 {x10E3/uL} (Normal) Range: 1.8-7.8 Basos 1 % (Normal) Range: 0-3 Eos 3 % (Normal) Range: 0-7 Monocytes 9 % (Normal) Range: 4-13 Lymphs 44 % (Normal) Range: 14-46 Neutrophils 43 % (Normal) Range: 40-74 Platelets 221 {x10E3/uL} (Normal) Range: 140-415 MCHC 32.7 g/dL (Normal) Range: 31.5-35.7 RDW 13.4 % (Normal) Range: 12.3-15.4 MCH 30.7 pg (Normal) Range: 26.6-33.0 MCV 94 fL (Normal) Range: 79-97 Hematocrit 41.9 % (Normal) Range: 34.0-46.6 Hemoglobin 13.7 g/dL (Normal) Range: 11.1-15.9 RBC 4.46 {x10E6/uL} (Normal) Range: 3.77-5.28 WBC 4.6 {x10E3/uL} (Normal) Range: 4.0-10.5 :31 METABOLIC PANEL, COMPREHENSIVE Comments: PATIENT WAS FASTINGPERFORMED BY: LabCoCarrier ClinicNkxpdw1383 [facility] [id number] ([id number]) ALT (SGPT) 14 [iU]/L (Normal) Range: 0-32 Alkaline Phosphatase, S 62 [iU]/L (Normal) Range: 25-165 AST (SGOT) 17 [iU]/L (Normal) Range: 0-40 Bilirubin, Total 0.3 mg/dL (Normal) Range: 0.0-1.2 A/G Ratio 2.0 (Normal) Range: 1.1-2.5 Albumin, Serum 4.4 g/dL (Normal) Range: 3.6-4.8 Globulin, Total 2.2 g/dL (Normal) Range: 1.5-4.5 Protein, Total, Serum 6.6 g/dL (Normal) Range: 6.0-8.5 Calcium, Serum 9.0 mg/dL (Normal) Range: 8.6-10.2 Carbon Dioxide, Total 23 mmol/L (Normal) Range: 20-32 Chloride, Serum 102 mmol/L (Normal) Range: 97-108 Potassium, Serum 4.4 mmol/L (Normal) Range: 3.5-5.2 Sodium, Serum 141 mmol/L (Normal) Range: 134-144 BUN/Creatinine Ratio 22 (Normal) Range: 11-26 eGFR If Africn Am 105 mL/min/1.73 (Normal) eGFR If NonAfricn Am 91 mL/min/1.73 (Normal) Creatinine, Serum 0.65 mg/dL (Normal) Range: 0.57-1.00 BUN 14 mg/dL (Normal) Range: 8-27 Glucose, Serum 109 mg/dL (Abnormal) Range: 65-99 :31 URINALYSIS, W/ MICRO (12381) Comments: PATIENT WAS FASTINGPERFORMED BY: [facility] [id number] Microscopic Examination See below: (Normal) Microscopic Examination MICRON (Normal) Comments: Microscopic follows if indicated. Nitrite, Urine Negative (Normal) Urobilinogen,Semi-Qn 0.2 mg/dL (Normal) Range: 0.0-1.9 Bilirubin Negative (Normal) Occult Blood Negative (Normal) Ketones Negative (Normal) Glucose Negative (Normal) Protein Negative (Normal) Appearance Clear (Normal) Urine-Color Yellow (Normal) WBC Esterase Negative (Normal) pH 8.5 (Abnormal) Range: 5.0-7.5 Specific Perrin 1.018 (Normal) Range: 1.005-1.030 :31 LIPID PANEL (43254) Comments: PATIENT WAS FASTINGPERFORMED BY: [facility] [id number] LDL Cholesterol Calc 75 mg/dL (Normal) Range: 0-99 LDL/HDL Ratio 2.3 {ratio_units} (Normal) Range: 0.0-3.2 HDL Cholesterol 33 mg/dL (Abnormal) Comments: According to ATP-III Guidelines, HDL-C >59 mg/dL is considered anegative risk factor for CHD. VLDL Cholesterol Peg 70 mg/dL (Abnormal) Range: 5-40 Triglycerides 351 mg/dL (Abnormal) Range: 0-149 Cholesterol, Total 178 mg/dL (Normal) Range: 100-199 :31 VITAMIN B-12 (CYANOCOBALAMIN) Comments: PATIENT WAS FASTINGPERFORMED BY: Mark Forged DoyleMaster RouteEC[facility] [id number] (25726) Vitamin B12 299 pg/mL (Normal) Range: 211-946 :31 Vitamin D Hydroxy (13736) Comments: PATIENT WAS FASTINGPERFORMED BY: [facility]6370 [facility] [id number] Vitamin D, 25-Hydroxy 31.2 ng/mL (Normal) Range: 30.0-100.0 Comments: Vitamin D deficiency has been defined by the [place] of[place] and an Endocrine Society practice guideline as alevel of serum 25-OH vitamin D less than 20 ng/mL (1,2).The Endocrine Society went on to further define vitamin Dinsufficiency as a level between 21 and 29 ng/mL (2).1. IOM ([place] [employer] [facility]). 2010. Dietary reference intakes for calcium and D. [place]: The National Academies Press.2. Delma RIVERA, Mckenna ABDALLA, Dane MACKENZIE, et al. Evaluation, treatment, and prevention of vitamin D deficiency: an Endocrine Society clinical practice guideline. JCEM. 2010; 96(7):1911-30. :31 TSH (92889) Comments: PATIENT WAS FASTINGPERFORMED BY: LabCoCarrier ClinicEbzdwz5856 [facility] [id number] TSH 4.190 {uIU/mL} (Normal) Range: 0.450-4.500 :15 HgA1C , Office (46037) HgA1C , Office 6.4 % (Normal) Range: 4.6 - 7.1 :15 Blood Glucose , Office (10727) Blood Glucose , Office 141 (Normal) :19 Thyroid Uptake, Single or Mult Radiology Report See Note (Normal) Comments: CLINICAL:67-year-old female with reported history of thyroid nodularity. I-123 THYROID UPTAKE and SCAN COMPARISON:Thyroid ultrasound report of 09/13/12 FINDINGS:The patient was administered a 302 uCi I- 123 capsule by mouth. The 4-hour I-123 radioactive iodine thyroidal uptake was calculated to be3.7 % (normal 5 to 25 %). The 24-hour I-123 radioactive iodine thyroidal uptake was calculated tobe16.3 % ( normal 5 to 40 %). The I-123 thyroid scan demonstrates mildly heterogeneousradiopharmaceutical concentration throughout both lobes of a U. shapedthyroid gland. There are no dominant colloidal parenchym alhypofunctioning-cold nodules noted in either lobe of the thyroid gland. IMPRESSION:1. ABNORMAL decreased 4- and NORMAL 24-hour I-123 radioactive iodinethyroidal uptake values. Correlation with in vit ro thyroid functionstudies may be of benefit. 2. The I-123 thyroid scan is consistent with the presence of a nontoxicmild multinodular thyroid goiter. Signed:Keith Crocker M.D.October 02, 2012 at 9:24 :48 PM [id number] Signed RB/RB If you are the referring physician and would like to consult with theradiologist who provided this interpretation, please contact Mame Mario at . If this radiologist is unavailable, you will bedirected to another radiologist to assist. If you are a patient with a question regarding this report, pleasecontactyour referring physician harman benítez. Professional Interpretation Provided By: [employer], Phone , These documents contain legally protected and confidential healthinformation intended only for the us e of the individual or entity namedabove. If you are not the intended recipient, you are hereby notifiedthatany disclosure, copying, distribution, or other use of these documents isstrictly prohibited. If you have received this information in error,pleasenotify the sender immediately and arrange for the return or destructionofthese documents. Dictated on 10/01/12 0946 by Keith Crocker DOTranscribed on 10/02/122127 by ITS IMPORTSign by Keith Crocker DO on 10/02/122128 Sign by: Keith Crocker DO 02-Mkl-22701:55 Vitamin D Hydroxy (91358) Comments: PATIENT NOT FASTINGPERFORMED BY: LabCoMiners' Colfax Medical CenterOkcxdc6697 [facility] [id number] Information: [id number] Vitamin D, 25-Hydroxy 39.5 ng/mL (Normal) Range: 30.0-100.0 Comments: Vitamin D deficiency has been defined by the [place] [facility] and an Endocrine Society practice guideline as alevel of serum 25-OH vitamin D less than 20 ng/mL (1,2).The Endocrine Society went on to further define vitamin Dinsufficiency as a level between 21 and 29 ng/mL (2).1. IOM ([place] [facility]). 2010. Dietary reference intakes for calcium and D. [place]: The National Academies Press.2. Delma MF, Mckenna ABDALLA, Dane MACKENZIE, et al. Evaluation, treatment, and prevention of vitamin D deficiency: an Endocrine Society clinical practice guideline. JCEM. 2010; 96(7):1911-30. 08-Pxu-18708:41 ESOPHAGUS ONLY Radiology Report See Note (Normal) Comments: PROCEDURE: X-RAY - ESOPHAGUS (BARIUM SWALLOW) WITH FLUOROSCOPY REASON FOR EXAM: Female, 67 years old. Epigastric pain. TECHNIQUE: Multiple views of the esophagus were obtained followingswallowing of barium. COMPARISON: None. FINDINGS:There is no demonstrated esophageal foreign body. There is nodemonstratedstricture or mucosal abnormality. Normal gastroesophageal junction,without a demonstra alina hiatal hernia. The patient ingested a 12 mmtabletof barium without any difficulty. There is atherosclerotic tortuosity of the aortic arch and descendingthoracic aorta. Normal visualized pulmonary parenchyma. There are diffuse degenerative changes of the visualized thoracic spine.Electrodes from a bone stimulator device are seen. IMPRESSION:Normal plain film x-ray examination (barium swallow) of the esophagus. Signed:Florian Valenzuela M.D.September 17, 2012 at 9:02:07 AM [id number] Signed GP/GP If you are the referring physician and would like to consult with theradiologist damaso davenport provided this interpretation, please contact Mame Mccoy at [phone]. If this radiologist is unavailable, youwill be directed to another radiologist to assist. If you are a patient wi th a question regarding this report, pleasecontactyour referring physician directly. Professional Interpretation Provided By: [employer], Phone , These documents contain l egally protected and confidential healthinformation intended only for the use of the individual or entity namedabove. If you are not the intended recipient, you are hereby notifiedthatany disclosure, co pying, distribution, or other use of these documents isstrictly prohibited. If you have received this information in error,pleasenotify the sender immediately and arrange for the return or destructionof these documents. Dictated on 09/17/12 07 by Didi Valenzuela MDscribed on 09/17/12908 by ITS IMPORTSign by Florian Valenzuela MD on 09/17/12908 Sign by: Florian Valenzuela MD 17-Sep-2012 B12 284 pg/mL Range: 211-946 7:31 (Normal) Comments: Performed at: [address] [id number] Director: Demarco Mccormack PhD, Phone: [phone] 17-Sep-2012 BID 0.10 mg/dL Range: 0.00-0.30 7:31 (Normal) 23-Flc-16749:31 CBCMD ANC 3.6 3/uL (Normal) Range: 2.0-7.7 IG# 0.020 3/ul (Abnormal) Range: 0.0-0.0 IG% 0.30 % (Abnormal) Range: 0.0-0.0 B% 0.4 % (Normal) Range: 0-1 E% 2.2 % (Normal) Range: 0-5 M% 9.1 % (Normal) Range: 0-10 L% 36.0 % (Normal) Range: 19-41 N% 52.0 % (Normal) Range: 47-70 MPV 10.8 fL (Normal) Range: 6.2-12.0 PLT 268 K/mm3 (Normal) Range: 150-450 RDWSD 44.0 fL (Abnormal) Range: 35.1-43.9 RDWCV 12.6 % (Normal) Range: 11.6-14.6 MCHC 33.0 g/dL (Normal) Range: 32-36 MCH 31.5 pg (Normal) Range: 27.0-32.0 MCV 95.5 fL (Normal) Range: 81-99 HCT 42.4 % (Normal) Range: 37-47 HGB 14.0 g/dL (Normal) Range: 12.0-15.0 RBC 4.44 {M/mm3} (Normal) Range: 4.2-5.4 WBC 6.9 {k/mm3} (Normal) Range: 4.4-11.0 :31 CMP GAP 10 (Normal) Range: 5-15 CO2 30.0 mmol/L (Normal) Range: 21.0-32.0 CL 97 mmol/L (Abnormal) Range: 98-107 K 3.6 mmol/L (Normal) Range: 3.5-5.1 NA 137 mmol/L (Normal) Range: 136-145 BIT 0.40 mg/dL (Normal) Range: 0.00-1.00 ALT 20 U/L (Normal) Range: 12-78 ALK 59 U/L (Normal) Range: 50-136 AST 13 U/L (Abnormal) Range: 15-37 CA 8.6 mg/dL (Normal) Range: 8.5-10.1 AG 1.3 {RATIO} (Normal) Range: 0.9-2.4 GLOB 3.2 g/dL (Normal) Range: 2.7-4.2 ALB 4.3 g/dL (Normal) Range: 3.4-5.0 TPROT 7.5 g/dL (Normal) Range: 6.4-8.2 BC 20.0 {RATIO} (Normal) Range: 10-20 GFRAA 92 mL/min (Normal) GFR 76 mL/min (Normal) CREAT 0.8 mg/dL (Normal) Range: 0.6-1.0 BUN 16 mg/dL (Normal) Range: 7-18 GLU 113 mg/dL (Abnormal) Range: 70-110 Comments: Fasting Glucose result from 110 to <126 mg/dL suggests IMPAIRED HOMEOSTASIS per A.D.A. criteria. :31 [facility] [place] See Note {CFU/mL} (Normal) Comments: COLONY COUNT 11,000-25,000 :31 LIPID VLDL 46 mg/dL (Abnormal) Range: 5-40 LDL 128 mg/dL (Normal) Range: 0-130 HDL 33 mg/dL (Abnormal) Comments: Reference Range HDL <40 mg/dL Low HDL Cholesterol HDL >or= 60 mg/dL High HDL Cholesterol TRIG 230 mg/dL (Abnormal) Comments: Serum Triglycerides Reference Interval Normal <150 mg/dL Borderline high 150 - 199 mg/dL High 200 - 499 mg/dL Very High > or = 500 mg/dL CHOL 207 mg/dL (Abnormal) Comments: <200 mg/dL Desirable 200-240 mg/dL Borderline >240 mg/dL High Risk 95-Qvp-27268:36 CHEST WITH CONTRAST Radiology Report See Note (Normal) Comments: PROCEDURE: CT CHEST WITHOUT CONTRAST REASON FOR EXAM: Female, 67 years old. Follow-up lobe lung nodule.History of thyroid nodule. RADIATION DOSAGE (If Supplied By Facility): CTDIvol = ( 16.36 ) mG y, DLP=( 638.83 ) mGycm TECHNIQUE: High resolution transaxial imaging was performed without theadministration of intravenous contrast material. Multiplanar coronal andsagittal images were reformatted . Images were reviewed in pulmonary,mediastinal and bone windows. COMPARISON:1. PA and lateral chest, March 17, 2011.2. Contrast enhanced chest CT, April 21, 2011 and December 14, 2011. FINDINGS:A stable 4-mm, well-circumscribed, isodense nodule remains peripherallywithin the inferolateral aspect of the anterior segment of the rightupperlobe (image 43). New or more evident since the prior studies is a partially calcified 3-mm nodule located peripherally within the lateralbasilar segment of the right lower lobe (image 73). A stable partiallycalcified, 3-mm nodule is present peripherally within the an teriorsegmentof the left upper lobe (image 28). Subjectively minor pleural basednodularity at the posterior aspect of the right lower lobe isinsignificantly changed since 2011. Stable pleural thickeni ng at theinferior aspect of the left major fissure is unchanged since 2010. The lungs are well expanded. No significant interstitial thickening isidentified. There is no demonstrated pleural effusion. N ormal heart and pericardium. Normal mediastinum. Normal hilar regions. No pathologically enlargedhilar, mediastinal or axillary lymph nodes are present. Grossly normalunenhanced pulmonary arteries. N ormal unenhanced thoracic aorta andvisualized great vessels. A few scattered minor calcifications arepresentwithin the descending thoracic aorta. No appreciable enlargement of the thyroid gland is obse rved. Kyphosis of the distal thoracic spine remains. The vertebral bodiesappeardiffusely osteopenic. Anterior and right lateral predominant endplateosteophytes are present, consistent with diffuse idi opathic skeletalhyperostosis (DISH). Vacuum phenomena are present within the distalthoracic disk spaces. A transcutaneous electrical nerve stimulator (TENS)remains implanted within the paraspinous tis sues at the approximate levelof the T12-L1 disk space. The electrode enters the thecal canal at theapproximate level of the T10-T11 disk space and ascends to the level ofT7. There is limited visualizat ion of the liver, spleen, pancreas, adrenalglands, and abdominal aorta without a demonstrated abnormality. IMPRESSION:1. Stable noncalcified 4-mm nodular density anterior segment right upperlobe. Advi se follow-up unenhanced chest CT an 8 to 9 months further toensure stability of its quality.2. 3-mm partially calcified nodules within the right lower lobe and leftupper lobe are consistent with old gr anulomatous disease.3. Stable, nonspecific, minor pleural thickening/nodularity.4. Thoracic kyphosis and osteopenia suggestive of osteoporosis.5. DISH.6. Grossly stable TENS. Signed:Theo Simpson M.D.September 13, 2012 at 2:32:10 PM [id number] Signed DL/DL If you are the referring physician and would like to consult with theradiologist who provided this interpretation, please co ntact Mame Lancaster at [phone]. If this radiologist is unavailable, youwillbe directed to another radiologist to assist. If you are a patient with a question regarding this report, pleasecont actyour referring physician directly. Professional Interpretation Provided By: [employer], Phone , These documents contain legally protected and confidential healthinforma tion intended only for the use of the individual or entity namedabove. If you are not the intended recipient, you are hereby notifiedthatany disclosure, copying, distribution, or other use of these docu ments isstrictly prohibited. If you have received this information in error,pleasenotify the sender immediately and arrange for the return or destructionofthese documents. Dictated on 09/13/12 0815 Theo Bull MDTranscribed on 09/13/12 1436 by ITS IMPORTSign by Theo Simpson MD on 09/13/12 1437 Sign by: Theo Simpson MD 74-Dsm-03005:36 THYROID Radiology Report See Note (Normal) Comments: PROCEDURE: THYROID ULTRASOUND REASON FOR EXAM: Female, 67 years old. Thyroid nodule. TECHNIQUE: Ultrasound evaluation of the thyroid was performed withreal-time and static rueda-scale imaging. COM PARISON: Comparison is made with prior examination dated March. FINDINGS: RIGHT LOBE: The right lobe of the thyroid gland measures 4.7 cm x 1.4 cmby 1.1 cm. There is a homogeneous echotexture. There are 3sub-centimeter well-defined, hypoechoic nodules scattered within therightlobe. The largest measures 4 mm x 5 mm x 3 mm. LEFT LOBE: The left lobe of the thyroid gland measures 3.9 cm by 0.8-cmby 1.2 cm. There is a homogeneous echotexture. There is a single 9 mm x6mm x 6 mm focal nodule. ISTHMUS: The isthmus measures 2.0 mm. IMPRESSION:Bilateral thyroid nodules, right more numerous t camacho left. The rightthyroid nodules have increased in number since prior study. Correlationwith a nuclear medicine thyroid uptake and scan is recommended . Signed:Florian Valenzuela M.D.September 13 13 at 2:58:06 PM [id number] Signed GP/GP If you are the referring physician and would like to consult with theradiologist who provided this interpretation, please contact Brown chaidez M.D. at [phone]. If this radiologist is unavailable, youwill be directed to another radiologist to assist. If you are a patient with a question regarding this report, pleasecontactyour refer ring physician directly. Professional Interpretation Provided By: Zvents, Phone , These documents contain legally protected and confidential healthinformation intended only for the use of the individual or entity namedabove. If you are not the intended recipient, you are hereby notifiedthatany disclosure, copying, distribution, or other use of these documents isstric tly prohibited. If you have received this information in error,pleasenotify the sender immediately and arrange for the return or destructionofthese documents. Dictated on 09/13/12 0846 by Nicolas Hammer,SolorieleTranscribed on 09/13/12 1502 by ITS IMPORTSign by Nicolas ARAGON,Florian on 09/13/12 1503 Sign by: Florian Valenzuela MD 96-Vaf-63179:28 CRE Comments: CALL [id number] WITH RESULTSRESULTS CALLED TO DEBBIE 09/13/12 0801 AURA DIAZ.REPORT READ BACK BY SAME . GFR 105 mL/min (Normal) GFRAA 127 mL/min (Normal) CREAT 0.6 mg/dL (Normal) Range: 0.6-1.0 :23 URINE HANSA CULTURE-JEWELS COL Comments: PATIENT NOT FASTINGPERFORMED BY: LabCoCarrier ClinicQdycqp7705 [facility] [id number] Information: SRC:UR [id number] COUNT ([id number]) Result 1 NG36 (Normal) Comments: No growth in 36 - 48 hours. Urine Culture,Comprehensive Final report (Normal) :39 Urinalysis, Office (84647) UA - BILIRUBIN Negative (Normal) UA - BLOOD Non Hemolyzed Trace (Normal) UA - GLUCOSE Negative (Normal) UA - KETONES Negative mg/dL (Normal) UA - LEUKOCYTE ESTERASE Negative (Normal) UA - NITRITE Negative (Normal) UA - PH 6.5 (Normal) UA - PROTEIN Negative mg/dL (Normal) UA - SPECIFIC GRAVITY 1.015 (Normal) URINE UROBILINGN JEWELS TIMED Normal mg/dL (Normal) :35 HgA1C , Office (54545) HgA1C , Office 6.3 % (Normal) Range: 4.6 - 7.1 :35 Blood Glucose , Office (76303) Blood Glucose , Office 143 (Normal) :54 Comp. Metabolic Panel (14) Comments: PATIENT WAS FASTINGPERFORMED BY: CLARITA Only-apartmentsCarrier ClinicPfacea8051 [facility] [id number] Information: 07/08@830AM 07/09@830AM ALT (SGPT) 11 [iU]/L (Normal) Range: 0-32 Comments: Please note reference interval change AST (SGOT) 15 [iU]/L (Normal) Range: 0-40 Alkaline Phosphatase, S 63 [iU]/L (Normal) Range: 25-165 Bilirubin, Total 0.5 mg/dL (Normal) Range: 0.0-1.2 A/G Ratio 1.7 (Normal) Range: 1.1-2.5 Globulin, Total 2.6 g/dL (Normal) Range: 1.5-4.5 Albumin, Serum 4.3 g/dL (Normal) Range: 3.6-4.8 Protein, Total, Serum 6.9 g/dL (Normal) Range: 6.0-8.5 Calcium, Serum 9.2 mg/dL (Normal) Range: 8.6-10.2 Carbon Dioxide, Total 27 mmol/L (Normal) Range: 20-32 Chloride, Serum 97 mmol/L (Normal) Range: 97-108 Potassium, Serum 3.9 mmol/L (Normal) Range: 3.5-5.2 Sodium, Serum 140 mmol/L (Normal) Range: 134-144 BUN/Creatinine Ratio 16 (Normal) Range: 11-26 eGFR If Africn Am 91 mL/min/1.73 (Normal) eGFR If NonAfricn Am 79 mL/min/1.73 (Normal) Creatinine, Serum 0.77 mg/dL (Normal) Range: 0.57-1.00 BUN 12 mg/dL (Normal) Range: 8-27 Glucose, Serum 110 mg/dL (Abnormal) Range: 65-99 :54 Creatinine Clearance Comments: PATIENT WAS FASTINGPERFORMED BY: Only-apartmentsCarrier ClinicNwntlu1979 [facility] [id number] Creatinine Clearance 70 mL/min (Abnormal) Range: 88-128 Comments: The above range is based on 1.73 square meter average body surfacearea. Creatinine, Ur 24hr 777.0 {mg/24_hr} (Abnormal) Range: 800.0-1800.0 Creatinine, Urine 37.9 mg/dL (Normal) Range: 15.0-278.0 :54 Lipid Panel With LDL/HDL Comments: PATIENT WAS FASTINGPERFORMED BY: Only-apartments Weutyw1700 [facility] [id number] Ratio LDL/HDL Ratio 2.6 {ratio_units} (Normal) Range: 0.0-3.2 HDL Cholesterol 35 mg/dL (Abnormal) Comments: According to ATP-III Guidelines, HDL-C >59 mg/dL is considered anegative risk factor for CHD. LDL Cholesterol Calc 92 mg/dL (Normal) Range: 0-99 VLDL Cholesterol Peg 64 mg/dL (Abnormal) Range: 5-40 Cholesterol, Total 191 mg/dL (Normal) Range: 100-199 Triglycerides 319 mg/dL (Abnormal) Range: 0-149 :54 Protein Total, Qn, 24-Hr Comments: PATIENT WAS FASTINGPERFORMED BY: Only-apartments Jynsxm7410 [facility] [id number] Urine Prot,24hr calculated <30.8 {mg/24_hr} Range: 30.0-150.0 (Normal) Protein,Total,Urine <1.5 mg/dL (Normal) Range: 0.0-15.0 Comments: Verified by repeat analysis TSH 2.550 {uIU/mL} Comments: PATIENT WAS FASTINGPERFORMED BY: Only-apartments Zcchtn7789 [facility] [id number] :54 (Normal) Range: 0.450-4.500 Vitamin B12 271 pg/mL (Normal) Comments: PATIENT WAS FASTINGPERFORMED BY: Only-apartments Bbxhnw1869 [facility] [id number] :54 Range: 211-946 :08 CBC WITH MANUAL DIFF Comments: PATIENT NOT FASTINGPERFORMED BY: Only-apartments Nzkyor8119 [facility] [id number] Information: [id number] (71548) Immature Grans (Abs) 0.0 {x10E3/uL} (Normal) Range: 0.0-0.1 Baso (Absolute) 0.0 {x10E3/uL} (Normal) Range: 0.0-0.2 Immature Granulocytes 0 % (Normal) Range: 0-2 Eos (Absolute) 0.1 {x10E3/uL} (Normal) Range: 0.0-0.4 Monocytes(Absolute) 0.4 {x10E3/uL} (Normal) Range: 0.1-1.0 Lymphs (Absolute) 1.5 {x10E3/uL} (Normal) Range: 0.7-4.5 Neutrophils (Absolute) 2.0 {x10E3/uL} (Normal) Range: 1.8-7.8 Basos 1 % (Normal) Range: 0-3 Eos 3 % (Normal) Range: 0-7 Monocytes 10 % (Normal) Range: 4-13 Lymphs 37 % (Normal) Range: 14-46 Neutrophils 49 % (Normal) Range: 40-74 Platelets 232 {x10E3/uL} (Normal) Range: 140-415 RDW 13.8 % (Normal) Range: 12.3-15.4 MCH 31.3 pg (Normal) Range: 26.6-33.0 MCHC 33.4 g/dL (Normal) Range: 31.5-35.7 MCV 94 fL (Normal) Range: 79-97 Hematocrit 39.5 % (Normal) Range: 34.0-46.6 Hemoglobin 13.2 g/dL (Normal) Range: 11.1-15.9 RBC 4.22 {x10E6/uL} (Normal) Range: 3.77-5.28 WBC 4.0 {x10E3/uL} (Normal) Range: 4.0-10.5 1-Vfn-391336:01 FECAL OCCULT- Tubes sent home (42364) FECAL OCCULT HGB ASSAY, QUAL, 1-3 SIMULTANEOU negative (Normal) 67-Uaf-09019:42 BILAT SCRN DIGITAL & CAD Radiology Report See Note (Normal) Comments: MAMMOGRAPHY - BILATERAL SCREENING REASON FOR EXAM: Female, 66 years old. Routine annual screeningexamination. PERTINENT HISTORY: TECHNIQUE: Digital examination. Mediolateral oblique ( MLO) andcran iocaudad (CC) views of both breasts were obtained. CAD: CAD wasperformed on this study. COMPARISON: Comparison is made with prior studies dated January 27ndJanuary 26, 2010. FINDINGS:The breast composi tion is composed of scattered fibroglandular densities. There are no dominant masses or suspicious calcifications. No other significant abnormalities are identified. There has been nosignificant change since the prior study. IMPRESSION:Stable bilateral screening mammogram. Yearly follow-up recommended. (A) ASSESSMENT CATEGORY:BIRADS Category 2: Benign finding(s). A letter regarding these results will be sent to the patient by the facility within 30 days. Approximately 10% of breast cancers are not detected by mammography. Anormal mammogram should not delay biopsy of a clinically suspiciousabno rmality. Signed:Florian Valenzuela M.D.April 30, 2012 at 8:16:04 AM [phone] Signed GP/GP If you are the referring physician and would like to consult with theradiologist who prov ided this interpretation, please contact Mame Mccoy at [phone]. If this radiologist is unavailable, youwill be directed to another radiologist to assist. If you are a patient with a qu estion regarding this report, pleasecontactyour referring physician directly. Professional Interpretation Provided By: [employer], Phone , These documents contain legally protected and confidential healthinformation intended only for the use of the individual or entity namedabove. If you are not the intended recipient, you are hereby notifiedthatany disclosure, copying, distribution, or other use of these documents isstrictly prohibited. If you have received this information in error,pleasenotify the sender immediately and arrange for the return or destructionofthese d ocuments. Dictated on 04/30/12741 by Nicolas ARAGON,Brendaranscribed on 04/30/12828 by ITS IMPORTSign by Florian Valenzuela MD on 04/30/12829 Sign by: Florian Valenzuela MD :44 HgA1C , Office (48794) HgA1C , Office 6.3 % (Normal) Range: 4.6 - 7.1 :44 Blood Glucose , Office (65682) Blood Glucose , Office 150 (Normal) Comments: has part of a cinnamon bun for breakfast :52 Microscopic Examination Comments: PATIENT WAS FASTINGPERFORMED BY: Art Circle LabTyber MedicalCarrier ClinicIkfulg0105 [facility] [id number] Bacteria None seen (Normal) Mucus Threads Present (Normal) Epithelial Cells (non renal) 0-10 {/hpf} (Normal) Range: 0 - 10 RBC 0-3 {/hpf} (Normal) Range: 0 - 3 WBC 0-5 {/hpf} (Normal) Range: 0 - 5 :52 CBC WITH MANUAL DIFF Comments: PATIENT WAS FASTINGPERFORMED BY: Art Circle LabIntegrity Applications6370 [facility] [id number] Information: [id number] (87402) Immature Grans (Abs) 0.0 {x10E3/uL} (Normal) Range: 0.0-0.1 Immature Granulocytes 0 % (Normal) Range: 0-2 Baso (Absolute) 0.1 {x10E3/uL} (Normal) Range: 0.0-0.2 Eos (Absolute) 0.2 {x10E3/uL} (Normal) Range: 0.0-0.4 Monocytes(Absolute) 0.4 {x10E3/uL} (Normal) Range: 0.1-1.0 Lymphs (Absolute) 2.1 {x10E3/uL} (Normal) Range: 0.7-4.5 Neutrophils (Absolute) 2.0 {x10E3/uL} (Normal) Range: 1.8-7.8 Basos 1 % (Normal) Range: 0-3 Eos 4 % (Normal) Range: 0-7 Monocytes 8 % (Normal) Range: 4-13 Lymphs 44 % (Normal) Range: 14-46 Neutrophils 43 % (Normal) Range: 40-74 Platelets 208 {x10E3/uL} (Normal) Range: 140-415 RDW 14.3 % (Normal) Range: 12.3-15.4 MCHC 32.5 g/dL (Normal) Range: 31.5-35.7 MCH 30.5 pg (Normal) Range: 26.6-33.0 MCV 94 fL (Normal) Range: 79-97 Hematocrit 42.4 % (Normal) Range: 34.0-46.6 Hemoglobin 13.8 g/dL (Normal) Range: 11.1-15.9 RBC 4.52 {x10E6/uL} (Normal) Range: 3.77-5.28 WBC 4.7 {x10E3/uL} (Normal) Range: 4.0-10.5 :52 URINALYSIS, W/ MICRO (30111) Comments: PATIENT WAS FASTINGPERFORMED BY: Only-apartmentsCarrier ClinicJfpemk1320 [facility] [id number] Microscopic Examination See below: (Normal) Nitrite, Urine Negative (Normal) Urobilinogen,Semi-Qn 1.0 mg/dL (Normal) Range: 0.0-1.9 Bilirubin Negative (Normal) Occult Blood Negative (Normal) Ketones Negative (Normal) Glucose Negative (Normal) Protein 2+ (Abnormal) WBC Esterase Negative (Normal) Appearance Clear (Normal) Urine-Color Yellow (Normal) pH 7.0 (Normal) Range: 5.0-7.5 Specific Perrin 1.029 (Normal) Range: 1.005-1.030 :52 TSH (95541) Comments: PATIENT WAS FASTINGPERFORMED BY: Only-apartmentsCarrier ClinicSrmkah9877 [facility] [id number] TSH 2.060 {uIU/mL} (Normal) Range: 0.450-4.500 :52 METABOLIC PANEL, COMPREHENSIVE Comments: PATIENT WAS FASTINGPERFORMED BY: VoteItMclaren [facility] Region6370 [facility] [id number] (50903) ALT (SGPT) 16 [iU]/L (Normal) Range: 0-40 AST (SGOT) 16 [iU]/L (Normal) Range: 0-40 Alkaline Phosphatase, S 92 [iU]/L (Normal) Range: 25-165 Bilirubin, Total 0.2 mg/dL (Normal) Range: 0.0-1.2 A/G Ratio 1.7 (Normal) Range: 1.1-2.5 Globulin, Total 2.4 g/dL (Normal) Range: 1.5-4.5 Albumin, Serum 4.1 g/dL (Normal) Range: 3.6-4.8 Protein, Total, Serum 6.5 g/dL (Normal) Range: 6.0-8.5 Calcium, Serum 8.8 mg/dL (Normal) Range: 8.6-10.2 Carbon Dioxide, Total 23 mmol/L (Normal) Range: 20-32 Chloride, Serum 104 mmol/L (Normal) Range: 97-108 Potassium, Serum 4.3 mmol/L (Normal) Range: 3.5-5.2 Sodium, Serum 140 mmol/L (Normal) Range: 134-144 BUN/Creatinine Ratio 25 (Normal) Range: 11-26 eGFR If Africn Am 92 mL/min/1.73 (Normal) eGFR If NonAfricn Am 80 mL/min/1.73 (Normal) Creatinine, Serum 0.77 mg/dL (Normal) Range: 0.57-1.00 BUN 19 mg/dL (Normal) Range: 8-27 Glucose, Serum 140 mg/dL (Abnormal) Range: 65-99 :52 LIPID PANEL (15543) Comments: PATIENT WAS FASTINGPERFORMED BY: [facility] [id number] LDL/HDL Ratio 2.2 {ratio_units} (Normal) Range: 0.0-3.2 LDL Cholesterol Calc 93 mg/dL (Normal) Range: 0-99 VLDL Cholesterol Peg 71 mg/dL (Abnormal) Range: 5-40 HDL Cholesterol 43 mg/dL (Normal) Comments: According to ATP-III Guidelines, HDL-C >59 mg/dL is considered anegative risk factor for CHD. Triglycerides 355 mg/dL (Abnormal) Range: 0-149 Cholesterol, Total 207 mg/dL (Abnormal) Range: 100-199 :52 MICROALBUMIN: CREATININE RATIO Comments: PATIENT WAS FASTINGPERFORMED BY: [facility] [id number] (33252) AND (11052) Microalb/Creat Ratio 822.1 {mg/g_creat} (Abnormal) Range: 0.0-30.0 Microalbumin, Urine 844.3 ug/mL (Abnormal) Range: 0.0-17.0 Creatinine, Urine 102.7 mg/dL (Normal) Range: 15.0-278.0 21-Jho-019190:18 HgA1C , Office (52052) HgA1C , Office 6.3 % (Normal) Range: 4.6 - 7.1 39-Qfy-575410:16 CHEST WITH CONTRAST Radiology Report See Note (Normal) Comments: PROCEDURE: CT CHEST WITH CONTRAST REASON FOR EXAM: Female, 66 years old. Follow-up for lung nodules. TECHNIQUE: High resolution transaxial imaging was performed followingintravenous administration of 100CC ml of Isovue 300 contrast material.Multiplanar coronal and sagittal images were reformatted. COMPARISON: Comparison is made with prior examination dated April FINDINGS: There is a m ild degree of linear scarring at the left base. There isminimal scarring in the right middle lobe as well as in the lingularsegment of the left upper lobe. Two tiny nodular densities are seen intheperi pheral aspect of the right upper lobe. These are unchanged. Thereisno demonstrated pleural abnormality. There is mild cardiac enlargement. Normal mediastinum. Normal hilar regions. Normal enhancemen t of thepulmonary arteries. There is atherosclerotic calcification of the aorticarch with tortuosity and elongation of the aortic arch and descendingthoracic aorta. There are multi-level degenerative c hanges of the thoracic spine. Twoelectrodes from a pain stimulating device are seen in the deep tendonportion of the epidural space along the dorsal level. The tips are attheT6-T7 level. There is limi alina visualization of the liver, spleen, pancreas, adrenalglands, and abdominal aorta without a demonstrated abnormality. IMPRESSION:Scarring at the lung bases with tiny nodules in the right upper lobe.T here has been essentially no change . To consult with a radiologist regarding this report, please call our [id number] line @ Dictated on 12/14/11 1033 by Mateo Valenzuela MD on 12/14/111437 by ITS IMPORTSign by Nicolas ARAGON,Florian on 12/14/11 143 Sign by: Nicolas ARAGON,Florian :19 CBC WITH MANUAL DIFF Comments: PATIENT WAS FASTINGPERFORMED BY: LabMclaren [facility] Region6370 [facility] [id number] Information: [id number] (95452) Immature Grans (Abs) 0.0 {x10E3/uL} (Normal) Range: 0.0-0.1 Immature Granulocytes 0 % (Normal) Range: 0-2 Baso (Absolute) 0.0 {x10E3/uL} (Normal) Range: 0.0-0.2 Eos (Absolute) 0.1 {x10E3/uL} (Normal) Range: 0.0-0.4 Monocytes(Absolute) 0.3 {x10E3/uL} (Normal) Range: 0.1-1.0 Lymphs (Absolute) 1.9 {x10E3/uL} (Normal) Range: 0.7-4.5 Neutrophils (Absolute) 2.8 {x10E3/uL} (Normal) Range: 1.8-7.8 Basos 1 % (Normal) Range: 0-3 Eos 2 % (Normal) Range: 0-7 Monocytes 7 % (Normal) Range: 4-13 Lymphs 36 % (Normal) Range: 14-46 Neutrophils 54 % (Normal) Range: 40-74 Platelets 230 {x10E3/uL} (Normal) Range: 140-415 RDW 13.8 % (Normal) Range: 11.7-15.0 MCHC 32.6 g/dL (Normal) Range: 32.0-36.0 MCH 30.6 pg (Normal) Range: 27.0-34.0 MCV 94 fL (Normal) Range: 80-98 Hematocrit 39.9 % (Normal) Range: 34.0-44.0 Hemoglobin 13.0 g/dL (Normal) Range: 11.5-15.0 RBC 4.25 {x10E6/uL} (Normal) Range: 3.80-5.10 WBC 5.2 {x10E3/uL} (Normal) Range: 4.0-10.5 :19 METABOLIC PANEL, COMPREHENSIVE Comments: PATIENT WAS FASTINGPERFORMED BY: Arria NLG [facility] [id number] (47686) ALT (SGPT) 14 [iU]/L (Normal) Range: 0-40 AST (SGOT) 14 [iU]/L (Normal) Range: 0-40 Alkaline Phosphatase, S 58 [iU]/L (Normal) Range: 25-165 Bilirubin, Total 0.5 mg/dL (Normal) Range: 0.0-1.2 A/G Ratio 1.9 (Normal) Range: 1.1-2.5 Globulin, Total 2.3 g/dL (Normal) Range: 1.5-4.5 Albumin, Serum 4.3 g/dL (Normal) Range: 3.6-4.8 Protein, Total, Serum 6.6 g/dL (Normal) Range: 6.0-8.5 Calcium, Serum 9.0 mg/dL (Normal) Range: 8.6-10.2 Carbon Dioxide, Total 25 mmol/L (Normal) Range: 20-32 Chloride, Serum 102 mmol/L (Normal) Range: 97-108 Potassium, Serum 4.4 mmol/L (Normal) Range: 3.5-5.2 Sodium, Serum 140 mmol/L (Normal) Range: 134-144 BUN/Creatinine Ratio 26 (Normal) Range: 11-26 eGFR If Africn Am 100 mL/min/1.73 (Normal) Comments: Note: A persistent eGFR <60 mL/min/1.73 m2 (3 months or more) mayindicate chronic kidney disease. An eGFR >59 mL/min/1.73 m2 with anelevated urine protein also may indicate chronic kidney disease.Calculated using CKD-EPI formula. eGFR If NonAfricn Am 86 mL/min/1.73 (Normal) Creatinine, Serum 0.72 mg/dL (Normal) Range: 0.57-1.00 BUN 19 mg/dL (Normal) Range: 8-27 Glucose, Serum 104 mg/dL (Abnormal) Range: 65-99 :19 LIPID PANEL (40407) Comments: PATIENT WAS FASTINGPERFORMED BY: [place]Dublin [place] [id number]; appt 12-21-11 LDL/HDL Ratio 3.0 {ratio_units} Range: 0.0-3.2 (Normal) LDL Cholesterol Calc 113 mg/dL (Abnormal) Range: 0-99 VLDL Cholesterol Peg 33 mg/dL (Normal) Range: 5-40 HDL Cholesterol 38 mg/dL (Abnormal) Comments: According to ATP-III Guidelines, HDL-C >59 mg/dL is considered anegative risk factor for CHD. Triglycerides 166 mg/dL (Abnormal) Range: 0-149 Cholesterol, Total 184 mg/dL (Normal) Range: 100-199 07-Nov-2011 CCP Antibodies IgG/IgA 6 {units} (Normal) Comments: PATIENT NOT FASTINGPERFORMED BY: Only-apartmentsNicole [place] 6269470 [facility] [id number] BY: [address] [id number] 10:24 Range: 0-19 Comments: Negative <20 Weak positive 20 - 39 Moderate positive 40 - 59 Strong positive >59 9-Fnx-313554:24 EBV Panel (73248) Comments: PATIENT NOT FASTINGPERFORMED BY: Only-apartmentsNicole [place] 6269470 [facility] [id number] BY: VoteIt[address] [id number] Interpretation: SPRCS (Normal) Comments: EBV Interpretation Chart . Interpretation VCA-IgM EA-IgG VCA-IgG NA-ABS . Susceptible - - - - Acute Infection + +or- +or- - Convalescent Phase +or- +or- + + Chronic or Reactivated - + + +or- Old Infection - - +or- + + Antibody Present - Antibody Absent EBV Nuclear Antigen Ab, IgG >8.0 {AI} (Abnormal) Range: 0.0-0.8 Comments: Negative <0.9 Equivocal 0.9 - 1.0 Positive >1.0 EBV Ab VCA, IgG >8.0 {AI} (Abnormal) Range: 0.0-0.8 Comments: Negative <0.9 Equivocal 0.9 - 1.0 Positive >1.0 EBV Early Antigen Ab, IgG <0.2 {AI} (Normal) Range: 0.0-0.8 Comments: Negative <0.9 Equivocal 0.9 - 1.0 Positive >1.0 EBV Ab VCA, IgM <0.2 {AI} (Normal) Range: 0.0-0.8 Comments: Negative <0.9 Equivocal 0.9 - 1.0 Positive >1.0 0-Dli-438171:24 SED RATE ERYTHROCYTE Comments: PATIENT NOT FASTINGPERFORMED BY: [place] 1847770 [facility] [id number] BY: [address] [id number] (59058) Sedimentation Rate-Westergren 6 mm/h (Normal) Range: 0-40 7-Zvi-984386:24 C-REACTIVE PROTEIN (32470) Comments: PATIENT NOT FASTINGPERFORMED BY: [place] 1847770 [facility] [id number] BY: [address] [id number] C-Reactive Protein, Quant 2.1 mg/L (Normal) Range: 0.0-4.9 9-Dpd-213513:24 TSH (10404) Comments: PATIENT NOT FASTINGPERFORMED BY: [place] 1847770 [facility] [id number] BY: [address] [id number] TSH 1.610 {uIU/mL} (Normal) Range: 0.450-4.500 9-Pqg-755804:24 RHEUMATOID FACTOR-QUANT Comments: PATIENT NOT FASTINGPERFORMED BY: [place] 1847770 [facility] [id number] BY: [address] [id number] (63957) RA Latex Turbid. 8.4 {IU/mL} (Normal) Range: 0.0-13.9 5-Hhw-343486:24 [place] (ANTINUCLEAR ANTIBODY) Comments: PATIENT NOT FASTINGPERFORMED BY: [place] 1847770 [facility] [id number] BY: LabCoHoward [place] 797267 [facility] [id number] (58058) [place] Direct Negative (Normal) 2-Qyz-837046:24 CBC WITH MANUAL DIFF Comments: PATIENT NOT FASTINGPERFORMED BY: CB [facility] Gcldqy7118 [facility] [id number] BY: LabCo[address] [id number] Inf ormation: [id number] (51111) Immature Grans (Abs) 0.0 {x10E3/uL} (Normal) Range: 0.0-0.1 Immature Granulocytes 0 % (Normal) Range: 0-2 Baso (Absolute) 0.0 {x10E3/uL} (Normal) Range: 0.0-0.2 Eos (Absolute) 0.1 {x10E3/uL} (Normal) Range: 0.0-0.4 Monocytes(Absolute) 0.2 {x10E3/uL} (Normal) Range: 0.1-1.0 Lymphs (Absolute) 1.2 {x10E3/uL} (Normal) Range: 0.7-4.5 Neutrophils (Absolute) 3.0 {x10E3/uL} (Normal) Range: 1.8-7.8 Basos 1 % (Normal) Range: 0-3 Eos 3 % (Normal) Range: 0-7 Monocytes 5 % (Normal) Range: 4-13 Lymphs 26 % (Normal) Range: 14-46 Neutrophils 65 % (Normal) Range: 40-74 Platelets 231 {x10E3/uL} (Normal) Range: 140-415 RDW 13.4 % (Normal) Range: 11.7-15.0 MCHC 32.6 g/dL (Normal) Range: 32.0-36.0 MCH 30.3 pg (Normal) Range: 27.0-34.0 MCV 93 fL (Normal) Range: 80-98 Hematocrit 41.4 % (Normal) Range: 34.0-44.0 Hemoglobin 13.5 g/dL (Normal) Range: 11.5-15.0 RBC 4.45 {x10E6/uL} (Normal) Range: 3.80-5.10 WBC 4.6 {x10E3/uL} (Normal) Range: 4.0-10.5 7-Zsf-891103:24 METABOLIC PANEL, Comments: PATIENT NOT FASTINGPERFORMED BY: CB [facility] Bnlvmh4036 [place] [id number] BY: BN [facility] Fxqirbpirh7534 [facility] [id number]; appt 12-21-11 RUST (23300) ALT (SGPT) 13 [iU]/L (Normal) Range: 0-40 AST (SGOT) 18 [iU]/L (Normal) Range: 0-40 Alkaline Phosphatase, S 60 [iU]/L (Normal) Range: 25-165 Bilirubin, Total 0.4 mg/dL (Normal) Range: 0.0-1.2 A/G Ratio 1.7 (Normal) Range: 1.1-2.5 Globulin, Total 2.6 g/dL (Normal) Range: 1.5-4.5 Albumin, Serum 4.5 g/dL (Normal) Range: 3.6-4.8 Protein, Total, Serum 7.1 g/dL (Normal) Range: 6.0-8.5 Calcium, Serum 9.3 mg/dL (Normal) Range: 8.6-10.2 Carbon Dioxide, Total 24 mmol/L (Normal) Range: 20-32 Chloride, Serum 102 mmol/L (Normal) Range: 97-108 Potassium, Serum 4.1 mmol/L (Normal) Range: 3.5-5.2 Sodium, Serum 140 mmol/L (Normal) Range: 134-144 BUN/Creatinine Ratio 20 (Normal) Range: 11-26 eGFR If Africn Am 105 mL/min/1.73 (Normal) Comments: Note: A persistent eGFR <60 mL/min/1.73 m2 (3 months or more) mayindicate chronic kidney disease. An eGFR >59 mL/min/1.73 m2 with anelevated urine protein also may indicate chronic kidney disease.Calculated using CKD-EPI formula. eGFR If NonAfricn Am 91 mL/min/1.73 (Normal) Creatinine, Serum 0.66 mg/dL (Normal) Range: 0.57-1.00 BUN 13 mg/dL (Normal) Range: 8-27 Glucose, Serum 118 mg/dL (Abnormal) Range: 65-99 4-Uwx-646424:51 HANSA CULTURE-OTHER (76231) Comments: PATIENT NOT FASTINGPERFORMED BY: CLARITA LabCoCarrier ClinicGqaagj0906 [place] [place] [id number] Information: SRC:AIDAN [id number] Result 1 RRF (Normal) Comments: Routine respiratory vicente Upper Respiratory Culture Final report (Normal) 07-Nov-20119:19 Rapid Strep Test, Office (83080) Rapid Strep Test, Office Negative (Normal) 89-Uxx-[id number]:16 HgA1C , Office (26420) HgA1C , Office 6.1 % (Normal) Range: 4.6 - 7.1 06-Pad-558865:16 Blood Glucose , Office (79038) Blood Glucose , Office 141 (Normal) 91-Lal-618182:10 ABDOMEN/PELVIS WITH CONTRAST Radiology Report See Note (Normal) Comments: PROCEDURE: CT ABDOMEN AND PELVIS WITH CONTRAST REASON FOR EXAM: Female, 66 years old. The patient presents with midabdominal pain and diarrhea. TECHNIQUE: Transaxial images were obtain ed from the dome of thediaphragmto the symphysis pubis with oral contrast. 100CC ml of Isovue 300contrastwas administered. Multiplanar coronal and sagittal images werereformatted. COMPARISON: Comparison is made with prior study dated August. FINDINGS:There is a mild degree of linear scar at both lung bases. Normal enhanced liver. The patient is status post cholecystectomy.Normalenhanced spleen. No rmal pancreas. Normal bilateral adrenal glands. Normal size of the right kidney. There is no right renal mass. Thereareno right renal calculi. There is mild hydronephrosis of the rightkidney.There is dilatation of the right ureter although it is not obstructed. Normal size of the left kidney. There is no left renal mass. There arenoleft renal calculi. There is mild hydronephrosis of the left kid alisa.Normal visualized left ureter. Normal visualized stomach. Normal small intestine. A moderate amount offecal material is seen throughout the colon.There is no demonstrated peritoneal fluid. Normal abdominal aorta. Normal inferior vena cava. Normalretroperitoneum. Normal urinary bladder. There is no pelvic mass lesion orlymphadenopathy.There is no pelvic fluid. There is absence of the uterus c onsistent witha prior hysterectomy. Normal abdominal wall. There is evidence of prior intrapedicular screwfixation of the lumbar spine. The patient is status post right total hipreplacement. IMPRESSIO N:There is a mild degree of bilateral hydronephrosis. Dictated on 08/01/11 1331 by Brenda Valenzuela MDranscribed on 08/01/11 141 by ITS IMPORTSign by Florian Valenzuela MD on 08/01/11 141 Si gn by: Florian Valenzuela MD [id number]-Urm-[id number]:39 CHEST WITH CONTRAST Radiology Report See Note (Normal) Comments: PROCEDURE: CT CHEST WITH CONTRAST REASON FOR EXAM: Female, 65 years old. Shortness of breath. Abnormalchest x- ray. TECHNIQUE: High resolution transaxial imaging was performed following intravenous administration of 100ML ml of Isovue 370 contrast material. COMPARISON: None. FINDINGS:No evidence of pulmonary embolism. Minimal platelike atelectatic changesare seen. Nonspecific two to 3-mm subtl e nodular density at right upperlobe, image 145 probably represent atypically atelectatic change. Nopleural effusion or pneumothorax the lung significant lymphadenopathy.Heart size is within normal marvin its. No evidence of pericardial effusion.Intraspinal phenomenon stimulator is noted, distal end at the level of R5aphpm. Normal osseous structures. There is limited visualization of the liver, spleen w ithout ademonstratedabnormality. IMPRESSION:No pulmonary embolism. No aortic dissection. Nonspecific two to 3-mmsubtle nodular density at right upper lobe, image 145 probably representatypically atelec tatic change. Dictated on 04/21/11 1104 by Anastasiya Odell MDscribed on 04/22/11 1013 by ITS IMPORTSign by Jordan Odell MD on 04/22/11 1014 Sign by: Jordan Odell MD 29-Gox-[id number]:29 MICROALBUMIN: CREATININE RATIO Comments: PATIENT WAS FASTINGPERFORMED BY: [facility] [id number] ([id number]) AND ([id number]) Microalb/Creat Ratio 11.8 {mg/g_creat} (Normal) Range: 0.0-30.0 Microalbumin, Urine 7.3 ug/mL (Normal) Range: 0.0-17.0 Creatinine, Urine 61.9 mg/dL (Normal) Range: 15.0-278.0 :29 LIPID PANEL (50916) Comments: PATIENT WAS FASTINGPERFORMED BY: [facility] [facility] [id number]; appt 07/25/11 VLDL Cholesterol Peg VLDLCH mg/dL (Normal) Range: 5-40 Comments: The calculation for the VLDL cholesterol is not valid whentriglyceride level is >400 mg/dL.Triglyceride result indicated is too high for an accurate LDLcholesterol estimation. HDL Cholesterol 33 mg/dL (Abnormal) Comments: According to ATP-III Guidelines, HDL-C >59 mg/dL is considered anegative risk factor for CHD. Triglycerides 415 mg/dL (Abnormal) Range: 0-149 Cholesterol, Total 191 mg/dL (Normal) Range: 100-199 :29 CBC WITH MANUAL DIFF Comments: PATIENT WAS FASTINGPERFORMED BY: [facility] [facility] [id number] Information: [id number] ([id number]) Immature Grans (Abs) 0.0 {x10E3/uL} (Normal) Range: 0.0-0.1 Immature Granulocytes 0 % (Normal) Range: 0-2 Baso (Absolute) 0.1 {x10E3/uL} (Normal) Range: 0.0-0.2 Eos (Absolute) 0.2 {x10E3/uL} (Normal) Range: 0.0-0.4 Monocytes(Absolute) 0.5 {x10E3/uL} (Normal) Range: 0.1-1.0 Lymphs (Absolute) 1.8 {x10E3/uL} (Normal) Range: 0.7-4.5 Neutrophils (Absolute) 3.2 {x10E3/uL} (Normal) Range: 1.8-7.8 Basos 1 % (Normal) Range: 0-3 Eos 3 % (Normal) Range: 0-7 Monocytes 8 % (Normal) Range: 4-13 Lymphs 32 % (Normal) Range: 14-46 Neutrophils 56 % (Normal) Range: 40-74 Platelets 277 {x10E3/uL} (Normal) Range: 140-415 RDW 13.7 % (Normal) Range: 11.7-15.0 MCHC 32.8 g/dL (Normal) Range: 32.0-36.0 MCH 31.1 pg (Normal) Range: 27.0-34.0 MCV 95 fL (Normal) Range: 80-98 Hematocrit 41.8 % (Normal) Range: 34.0-44.0 Hemoglobin 13.7 g/dL (Normal) Range: 11.5-15.0 RBC 4.40 {x10E6/uL} (Normal) Range: 3.80-5.10 WBC 5.7 {x10E3/uL} (Normal) Range: 4.0-10.5 86-Pgl-[id number]:29 METABOLIC PANEL, COMPREHENSIVE Comments: PATIENT WAS FASTINGPERFORMED BY: [facility]El[facility]me10[facility] [id number] ([id number]) ALT (SGPT) 12 [iU]/L (Normal) Range: 0-40 AST (SGOT) 15 [iU]/L (Normal) Range: 0-40 Alkaline Phosphatase, S 59 [iU]/L (Normal) Range: 25-165 Bilirubin, Total 0.3 mg/dL (Normal) Range: 0.0-1.2 A/G Ratio 1.6 (Normal) Range: 1.1-2.5 Globulin, Total 2.6 g/dL (Normal) Range: 1.5-4.5 Albumin, Serum 4.2 g/dL (Normal) Range: 3.6-4.8 Protein, Total, Serum 6.8 g/dL (Normal) Range: 6.0-8.5 Calcium, Serum 9.3 mg/dL (Normal) Range: 8.6-10.2 Carbon Dioxide, Total 28 mmol/L (Normal) Range: 20-32 Chloride, Serum 97 mmol/L (Normal) Range: 97-108 Potassium, Serum 3.8 mmol/L (Normal) Range: 3.5-5.2 Sodium, Serum 140 mmol/L (Normal) Range: 135-145 BUN/Creatinine Ratio 21 (Normal) Range: 11-26 eGFR If Africn Am 101 mL/min/1.73 (Normal) Comments: Note: A persistent eGFR <60 mL/min/1.73 m2 (3 months or more) mayindicate chronic kidney disease. An eGFR >59 mL/min/1.73 m2 with anelevated urine protein also may indicate chronic kidney disease.Calculated using CKD-EPI formula. eGFR If NonAfricn Am 88 mL/min/1.73 (Normal) Creatinine, Serum 0.71 mg/dL (Normal) Range: 0.57-1.00 BUN 15 mg/dL (Normal) Range: 8-27 Glucose, Serum 120 mg/dL (Abnormal) Range: 65-99 64-Xcl-26466:46 THYROID Radiology Report See Note (Normal) Comments: PROCEDURE: THYROID ULTRASOUND REASON FOR EXAM: Female, [address] exam thyroidnodule. TECHNIQUE: Ultrasound evaluation of the thyroid was performed withreal-time ultrasonography an d static grayscale imaging. COMPARISON: CT neck 01/24/11. FINDINGS: RIGHT LOBE: Normal size of the right lobe of the thyroid. The rightlobeof the thyroid gland measures 4.8 x 1.2 x 1.4 cm. Small no nspecifichypoechoic nodule at upper one third of the right lobe of thyroidmeasures8 x 6 mm in maximum dimension. No evidence of increased vascularity orsuspicious calcifications. LEFT LOBE: Normal siz e of the left lobe of the thyroid. The left lobeofthe thyroid gland measures 4.6 x 1.4 x 1.1 cm. There is a homogeneousechotexture with normal echogenicity. There are no demonstrated solid,cystic or complex lesions. ISTHMUS: The isthmus measures 0.2 cm. IMPRESSION:Small nonspecific hypoechoic nodule at upper one third of the right lobeofthyroid measures 8 x 6 mm in maximum dimension. No evidence of increasedvascularity or suspicious calcifications. Probably is a benign nodule, 6month follow-up may be considered for stability. Dictated on 03/22/11 1015 by Leonard Odell MDranscribed on 1148 by ITS IMPORTSign by Jordan Odell MD on 03/28/11 1149 Sign by: Jordan Odell MD :10 CHEST, PA AND LATERAL Radiology Report See Note (Normal) Comments: PROCEDURE: X-RAY CHEST REASON FOR EXAM: Female, 65 years old. Shortness of breath and leftchest pain. TECHNIQUE: PA and lateral views of the chest. COMPARISON: November 25, 2008 FINDINGS:Since the prior study, the patient has had an epidural catheter inserted. The lungs are mildly over expanded and unchanged. There is nodemonstratedparenchymal abnormality. There is no demonstrated pleural abno rmality. There is cardiomegaly unchanged. Normal mediastinum and karthik. Normal visualized pulmonary arteries.Normalvisualized aortic arch and descending thoracic aorta. Normal visualized thoracic spine. Normal visualized ribs, clavicles, andshoulders. There is no demonstrated abnormality of the visualized soft tissuestructures of the upper abdomen. IMPRESSION:Mild overexpansion with cardiomegaly. Sta tus post epidural catheter placement. P No active or acute cardiopulmonary disease. Dictated on 03/17/11 0915 by Heraclio Meredith MDTranscribed on 03/18/11 1234 by ITS IMPORTSign by Heraclio Meredith MD on 1235 Sign by: Heraclio Meredith MD :35 BILAT SCRN DIGITAL & CAD Radiology Report See Note (Normal) Comments: MAMMOGRAPHY - BILATERAL SCREENING INDICATION:Female, 65 years old. Routine annual screening examination. PERTINENT HISTORY:Mother with breast cancer. TECHNIQUE:Digital examination. Mediolateral obliqu e (MLO) and craniocaudad (CC)views of both breasts were obtained. CAD: CAD was performed on thisstudy. COMPARISON:Comparison is made with prior study dated January 26, 2010.FINDINGS:The breast composition i s composed of scattered fibroglandular densities. There are no masses or suspicious microcalcifications. No other significant abnormalities are identified. There has been nosignificant change since the prior study. IMPRESSION:Normal bilateral screening mammogram. One year follow- up recommended. (1) ASSESSMENT CATEGORY:BIRADS Category 2: Benign finding(s). A letter regarding these resultswill be se nt to the patient by the facility within 30 days. Approximately 10% of breast cancers are not detected by mammography. Anormal mammogram should not delay biopsy of a clinically suspiciousabnormality. Dictated on 01/27/11 0649 by Brenda Valenzuela MDranscribed on 01/27/11 1018 by ITS IMPORTSign by Florian Valenzuela MD on 01/27/11 1019 Sign by: ___ Florian Valenzuela MD 45-Ryl-20579:47 SOFT TISSUE NECK WITH CONTRAST Radiology Report See Note (Normal) Comments: CLINICAL:Female, 65 years old. The patient presents with right-sided neck mass. CT SOFT TISSUE NECK WITH CONTRAST TECHNIQUE:The patient was scanned in a multi-detector CT scanner. High resolutiontrans axial imaging was performed following the intravenous administrationof 100 ml of Isovue 300 contrast material. Sagittal and coronal imageswere reconstructed. COMPARISON:None. 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 Normal bilateral parotid glands. Normal bilateral director of safety and security spaces.Normal bilateral parapharyngeal spaces. Normal bilateral carotid spaces. Normal re tropharyngeal space. Normal perivertebral space. Normal bilateral sublingual spaces (SLS) and submandibular spaces (SMS)andglands. Normal visualized nasopharynx (mucosal disease cannot be excluded.) No rmal visualized pharyngeal mucosal space (PMS) and bilateral faucialtonsils. The visualized tongue, tongue base and oropharynx are normal(mucosal disease cannot be excluded.) The visualized cervical ly mph nodes (levels I-) are within normal sizelimits, and maintain normal morphology. There is no demonstrated solid or cystic mass lesion. There is no enhancing abnormality. Normal hypopharynx, epiglot tis and bilateral vallecula. The pre-epiglotticand paraglottic adipose spaces are normal. Normal visualized bilateral piriform sinuses, aryepiglottic folds, vocalcords, and arytenoid-cricoid articulati ons. Normal subglottic trachea. There are several small hypodensities in the inferior aspect of the rightlobe of the thyroid. This most likely represents goiterous change. Thevisualized tracheoesophag eal groove is normal, without a mass lesion. Normal visualized paranasal sinuses. Normal visualized pulmonary apices. IMPRESSION:Normal enhanced CT examination of the Soft Tissues of the neck. Dic tated on 01/24/11 0805 by Nicolas ARAGON,SolorieleTranscribed on 01/24/11 1016 by ITS IMPORTSign by Florian Valenzuela MD on 01/24/11 1017 Sign by: Florian Valenzuela MD 15-Xly-16184:15 CBC WITH MANUAL DIFF Comments: PATIENT WAS FASTINGPERFORMED BY: [facility] [id number] Information: [id number] ([id number]) Immature Grans (Abs) 0.0 {x10E3/uL} (Normal) Range: 0.0-0.1 Immature Granulocytes 0 % (Normal) Range: 0-2 Comments: Please note reference interval change Baso (Absolute) 0.0 {x10E3/uL} (Normal) Range: 0.0-0.2 Eos (Absolute) 0.3 {x10E3/uL} (Normal) Range: 0.0-0.4 Monocytes(Absolute) 0.5 {x10E3/uL} (Normal) Range: 0.1-1.0 Lymphs (Absolute) 2.2 {x10E3/uL} (Normal) Range: 0.7-4.5 Neutrophils (Absolute) 4.0 {x10E3/uL} (Normal) Range: 1.8-7.8 Basos 1 % (Normal) Range: 0-3 Eos 4 % (Normal) Range: 0-7 Monocytes 7 % (Normal) Range: 4-13 Lymphs 32 % (Normal) Range: 14-46 Neutrophils 56 % (Normal) Range: 40-74 Platelets 250 {x10E3/uL} (Normal) Range: 140-415 RDW 13.5 % (Normal) Range: 11.7-15.0 MCHC 32.9 g/dL (Normal) Range: 32.0-36.0 MCH 30.5 pg (Normal) Range: 27.0-34.0 MCV 93 fL (Normal) Range: 80-98 Hematocrit 41.6 % (Normal) Range: 34.0-44.0 Hemoglobin 13.7 g/dL (Normal) Range: 11.5-15.0 RBC 4.49 {x10E6/uL} (Normal) Range: 3.80-5.10 WBC 7.0 {x10E3/uL} (Normal) Range: 4.0-10.5 59-Idr-70595:15 METABOLIC PANEL, COMPREHENSIVE Comments: PATIENT WAS FASTINGPERFORMED BY: [facility] [id number] ([id number]) ALT (SGPT) 10 [iU]/L (Normal) Range: 0-40 AST (SGOT) 14 [iU]/L (Normal) Range: 0-40 Alkaline Phosphatase, S 70 [iU]/L (Normal) Range: 25-165 Bilirubin, Total 0.4 mg/dL (Normal) Range: 0.0-1.2 A/G Ratio 1.7 (Normal) Range: 1.1-2.5 Globulin, Total 2.6 g/dL (Normal) Range: 1.5-4.5 Albumin, Serum 4.5 g/dL (Normal) Range: 3.6-4.8 Protein, Total, Serum 7.1 g/dL (Normal) Range: 6.0-8.5 Calcium, Serum 9.1 mg/dL (Normal) Range: 8.6-10.2 Carbon Dioxide, Total 27 mmol/L (Normal) Range: 20-32 Chloride, Serum 103 mmol/L (Normal) Range: 97-108 Potassium, Serum 4.4 mmol/L (Normal) Range: 3.5-5.2 Sodium, Serum 143 mmol/L (Normal) Range: 135-145 BUN/Creatinine Ratio 23 (Normal) Range: 11-26 eGFR If Africn Am 74 mL/min/1.73 (Normal) Comments: Note: A persistent eGFR <60 mL/min/1.73 m2 (3 months or more) mayindicate chronic kidney disease. An eGFR >59 mL/min/1.73 m2 with anelevated urine protein also may indicate chronic kidney disease.Calculated using CKD-EPI formula. eGFR If NonAfricn Am 64 mL/min/1.73 (Normal) Creatinine, Serum 0.93 mg/dL (Normal) Range: 0.57-1.00 BUN 21 mg/dL (Normal) Range: 8-27 Glucose, Serum 103 mg/dL (Abnormal) Range: 65-99 :15 LIPID PANEL (05391) Comments: PATIENT WAS FASTINGPERFORMED BY: [employer] CigYcpcxr9695 [facility] [id number]; has f/u 04/20/11 LDL/HDL Ratio 2.5 {ratio_units} (Normal) Range: 0.0-3.2 LDL Cholesterol Calc 94 mg/dL (Normal) Range: 0-99 VLDL Cholesterol Peg 46 mg/dL (Abnormal) Range: 5-40 HDL Cholesterol 37 mg/dL (Abnormal) Comments: According to ATP-III Guidelines, HDL-C >59 mg/dL is considered anegative risk factor for CHD. Triglycerides 230 mg/dL (Abnormal) Range: 0-149 Cholesterol, Total 177 mg/dL (Normal) Range: 100-199 :15 HgA1C , Office (60182) Comments: PATIENT WAS FASTINGPERFORMED BY: [facility] Qcohes0034 [facility] [id number] Glycohemoglobin (GHb), Total 7.7 % (Normal) Comments: Diabetic Adult <9.0 Healthy Adult 3.9 - 7.3 (DCCT/NGSP) Current ADA guide lines recommend a treatment goal of <7.0% HgbA1c for diabetic patients, which corresponds to a <9.0% Glycohemoglobin result with this method. :50 Blood Glucose , Office (53031) Blood Glucose , Office 160 (Normal) :48 CBCD,SMEAR DIFF PLT MORPH GIANT (Normal) Comments: RARE GIANT PLATELETS PLT EST SeeNote (Normal) Comments: Result: ADEQUATE BAND 1 % (Normal) Range: 0-5 CELLS COUNTED 100 (Normal) LYMPH 29 % (Normal) Range: 19-41 MONOCYTE 7 % (Normal) Range: 0-10 SEGS 63 % (Normal) Range: 47-70 ABSOLUTE NEUT 2.5 3/uL (Normal) Range: 2.0-7.7 MCHC 33.5 g/dL (Normal) Range: 32-36 PLT 212 K/mm3 (Normal) Range: 150-450 RDW 14.0 % (Normal) Range: 11.6-14.6 HCT 39.7 % (Normal) Range: 37-47 MCH 32.5 pg (Abnormal) Range: 27.0-32.0 MCV 97.0 fL (Normal) Range: 81-99 HGB 13.3 g/dL (Normal) Range: 12.0-16.0 RBC 4.09 {M/mm3} (Abnormal) Range: 4.2-5.4 WBC 4.5 K/mm3 (Normal) Range: 4.4-11.0 :48 COMP METABOLIC GAP 9 (Normal) Range: 5-15 CL 105 mmol/L (Normal) Range: 98-107 CO2 30.0 mmol/L (Normal) Range: 21.0-32.0 K 3.6 mmol/L (Normal) Range: 3.5-5.1 NA 144 mmol/L (Normal) Range: 136-145 T BILI 0.40 mg/dL (Normal) Range: 0.00-1.00 ALT 24 U/L (Normal) Range: 12-78 ALK P 56 U/L (Normal) Range: 50-136 AST 18 U/L (Normal) Range: 15-37 A/G 1.3 {RATIO} (Normal) Range: 0.9-2.4 CA 8.5 mg/dL (Normal) Range: 8.5-10.1 GLOB 3.0 g/dL (Normal) Range: 2.7-4.2 ALB 3.8 g/dL (Normal) Range: 3.4-5.0 BUN/CRE 25.7 {RATIO} (Abnormal) Range: 10-20 EST GFR - AA 108 mL/min (Normal) T PROT 6.8 g/dL (Normal) Range: 6.4-8.2 BUN 18 mg/dL (Normal) Range: 7-18 CREAT,SERUM 0.7 mg/dL (Normal) Range: 0.6-1.0 EST GFR 89 mL/min (Normal) GLU 103 mg/dL (Normal) Range: 70-110 :48 LIPID Comments: appt 01/17/11 VLDL 59 mg/dL (Abnormal) Range: 5-40 HDL 34 mg/dL (Abnormal) Comments: Reference Range HDL <40 mg/dL Low HDL Cholesterol HDL >or= 60 mg/dL High HDL Cholesterol LDL 85 mg/dL (Normal) Range: 0-130 CHOL 178 mg/dL (Normal) Comments: <200 mg/dL Desirable 200-240 mg/dL Borderline >240 mg/dL High Risk TRIG 295 mg/dL (Abnormal) Comments: Serum Triglycerides Reference Interval Normal <150 mg/dL Borderline high 150 - 199 mg/dL High 200 - 499 mg/dL Very High > or = 500 mg/dL :33 HgA1C , Office (84759) HgA1C , Office 6.5 % (Normal) Range: 4.6 - 7.1 :33 Blood Glucose , Office (04735) Blood Glucose , Office 154 (Normal) 59-Osj-871866:11 Influenza A, H1N1, RT PCR Comments: PERFORMED BY: Only-[facility]artments[address] [id number] BY: Only-apartments[address] [id number] Information: SRC:NL Subtype Novel H1N1 by Negative (Normal) PCR Type Influenza A by Negative (Normal) PCR Viral FLUABN (Normal) Comments: PERFORMED BY: [facility] [id number] BY: [facility] [id number] Culture,Rapid,Influenz Comments: Negative:No Influenza A or B detected. a :04 Urinalysis, Office (99768) UA - BILIRUBIN Negative (Normal) UA - BLOOD Negative (Normal) UA - GLUCOSE Negative (Normal) UA - KETONES Negative mg/dL (Normal) UA - LEUKOCYTE ESTERASE Negative (Normal) UA - NITRITE Negative (Normal) UA - PH 6.0 (Normal) UA - PROTEIN Negative mg/dL (Normal) UA - SPECIFIC GRAVITY 1.025 (Normal) URINE UROBILINGN JEWELS TIMED Normal mg/dL (Normal) :59 Vitamin D Hydroxy (47717) Comments: PATIENT WAS FASTINGPERFORMED BY: [facility]-ap[facility] [id number] Vitamin D, 25-Hydroxy 32.0 ng/mL (Normal) Range: 32.0-100.0 Comments: Recent studies consider the lower limit of 32.0 ng/mL to be athreshold for optimal health.Jose MAYA. J Nutr. 2004;135(2):317-22. 4-:59 METABOLIC PANEL, Comments: PATIENT WAS FASTINGPERFORMED BY: [facility] Dszfwl4295 [facility] [id number] Information: [id number] COMPREHENSIVE (06011) ALT (SGPT) 9 [iU]/L (Normal) Range: 0-40 Alkaline Phosphatase, S 64 [iU]/L (Normal) Range: 25-165 AST (SGOT) 12 [iU]/L (Normal) Range: 0-40 Bilirubin, Total 0.4 mg/dL (Normal) Range: 0.0-1.2 A/G Ratio 1.7 (Normal) Range: 1.1-2.5 Globulin, Total 2.6 g/dL (Normal) Range: 1.5-4.5 Albumin, Serum 4.3 g/dL (Normal) Range: 3.6-4.8 Calcium, Serum 9.3 mg/dL (Normal) Range: 8.6-10.2 Carbon Dioxide, Total 25 mmol/L (Normal) Range: 20-32 Protein, Total, Serum 6.9 g/dL (Normal) Range: 6.0-8.5 Chloride, Serum 103 mmol/L (Normal) Range: 97-108 Potassium, Serum 3.8 mmol/L (Normal) Range: 3.5-5.2 BUN/Creatinine Ratio 29 (Abnormal) Range: 11-26 Sodium, Serum 142 mmol/L (Normal) Range: 135-145 eGFR >59 mL/min/1.73 (Normal) eGFR AfricanAmerican >59 mL/min/1.73 Comments: Note: Persistent reduction for 3 months or more in an eGFR<60 mL/min/1.73 m2 defines CKD. Patients with eGFR values>/=60 mL/min/1.73 m2 may also have CKD if evidence of persistentproteinuria is (Normal) present. Additional information may be found [email or web address]. BUN 18 mg/dL (Normal) Range: 8-27 Creatinine, Serum 0.63 mg/dL (Normal) Range: 0.57-1.00 Glucose, Serum 112 mg/dL (Abnormal) Range: 65-99 :59 LIPID PANEL (60472) Comments: PATIENT WAS FASTINGPERFORMED BY: [employer]6370 [facility] [id number] LDL Cholesterol Calc 87 mg/dL (Normal) Range: 0-99 LDL/HDL Ratio 2.2 {ratio_units} (Normal) Range: 0.0-3.2 VLDL Cholesterol Peg 44 mg/dL (Abnormal) Range: 5-40 HDL Cholesterol 39 mg/dL (Abnormal) Comments: According to ATP-III Guidelines, HDL-C >59 mg/dL is considered anegative risk factor for CHD. Triglycerides 218 mg/dL (Abnormal) Range: 0-149 Cholesterol, Total 170 mg/dL (Normal) Range: 100-199 :57 CBC WITH MANUAL DIFF Comments: PATIENT WAS FASTINGPERFORMED BY: [facility]6370 [facility] [id number] Information: ADD [id number] AND DRAW FEE 99 9359 (31674) Immature Grans (Abs) 0.0 {x10E3/uL} (Normal) Range: 0.0-0.1 Immature Granulocytes 0 % (Normal) Range: 0-1 Baso (Absolute) 0.0 {x10E3/uL} (Normal) Range: 0.0-0.2 Eos (Absolute) 0.1 {x10E3/uL} (Normal) Range: 0.0-0.4 Lymphs (Absolute) 2.1 {x10E3/uL} (Normal) Range: 0.7-4.5 Monocytes(Absolute) 0.5 {x10E3/uL} (Normal) Range: 0.1-1.0 Neutrophils (Absolute) 3.7 {x10E3/uL} (Normal) Range: 1.8-7.8 Basos 1 % (Normal) Range: 0-3 Eos 1 % (Normal) Range: 0-7 Lymphs 33 % (Normal) Range: 14-46 Monocytes 8 % (Normal) Range: 4-13 Neutrophils 57 % (Normal) Range: 40-74 Platelets 200 {x10E3/uL} (Normal) Range: 140-415 RDW 14.2 % (Normal) Range: 11.7-15.0 MCH 30.9 pg (Normal) Range: 27.0-34.0 MCHC 32.9 g/dL (Normal) Range: 32.0-36.0 Hematocrit 42.8 % (Normal) Range: 34.0-44.0 Hemoglobin 14.1 g/dL (Normal) Range: 11.5-15.0 MCV 94 fL (Normal) Range: 80-98 RBC 4.57 {x10E6/uL} (Normal) Range: 3.80-5.10 WBC 6.5 {x10E3/uL} (Normal) Range: 4.0-10.5 :57 MICROALBUMIN: CREATININE RATIO Comments: PATIENT WAS FASTINGPERFORMED BY: BRCK IncCarrier ClinicCjizgm7252 [facility] [id number] ([id number]) AND (02085) Creatinine, Urine 87.5 mg/dL (Normal) Range: 15.0-278.0 Microalb/Creat Ratio 4.5 {mg/g_creat} (Normal) Range: 0.0-30.0 Microalbumin, Urine 3.9 ug/mL (Normal) Range: 0.0-17.0 :57 METABOLIC PANEL, COMPREHENSIVE Comments: PATIENT WAS FASTINGPERFORMED BY: Only-apartmentsCarrier ClinicDjtosf2091 [facility] [id number] ([id number]) ALT (SGPT) 12 [iU]/L (Normal) Range: 0-40 AST (SGOT) 16 [iU]/L (Normal) Range: 0-40 A/G Ratio 1.7 (Normal) Range: 1.1-2.5 Alkaline Phosphatase, S 64 [iU]/L (Normal) Range: 25-165 Bilirubin, Total 0.4 mg/dL (Normal) Range: 0.0-1.2 Albumin, Serum 4.4 g/dL (Normal) Range: 3.6-4.8 Globulin, Total 2.6 g/dL (Normal) Range: 1.5-4.5 Protein, Total, Serum 7.0 g/dL (Normal) Range: 6.0-8.5 Calcium, Serum 9.1 mg/dL (Normal) Range: 8.6-10.2 Carbon Dioxide, Total 23 mmol/L (Normal) Range: 20-32 Chloride, Serum 105 mmol/L (Normal) Range: 97-108 Potassium, Serum 4.2 mmol/L (Normal) Range: 3.5-5.2 Sodium, Serum 142 mmol/L (Normal) Range: 135-145 BUN/Creatinine Ratio 36 (Abnormal) Range: 8-27 eGFR >59 mL/min/1.73 (Normal) eGFR AfricanAmerican >59 mL/min/1.73 Comments: Note: Persistent reduction for 3 months or more in an eGFR<60 mL/min/1.73 m2 defines CKD. Patients with eGFR values>/=60 mL/min/1.73 m2 may also have CKD if evidence of persistentproteinuria is (Normal) present. Additional information may be found [email or web address]. BUN 30 mg/dL (Abnormal) Range: 5-26 Creatinine, Serum 0.83 mg/dL (Normal) Range: 0.57-1.00 Glucose, Serum 114 mg/dL (Abnormal) Range: 65-99 :57 LIPID PANEL (79089) Comments: PATIENT WAS FASTINGPERFORMED BY: LabCoCarrier ClinicMkoput1421 [facility] [id number] LDL Cholesterol Calc 138 mg/dL (Abnormal) Range: 0-99 LDL/HDL Ratio 2.9 {ratio_units} (Normal) Range: 0.0-3.2 HDL Cholesterol 47 mg/dL (Normal) Comments: According to ATP-III Guidelines, HDL-C >59 mg/dL is considered anegative risk factor for CHD. VLDL Cholesterol Peg 29 mg/dL (Normal) Range: 5-40 Cholesterol, Total 214 mg/dL (Abnormal) Range: 100-199 Triglycerides 147 mg/dL (Normal) Range: 0-149 :05 HgA1C , Office (34043) HgA1C , Office 6.5 % (Normal) Range: 4.6 - 7.1 :05 Blood Glucose , Office (21180) Blood Glucose , Office 140 (Normal) :35 MICROALBUMIN: CREATININE RATIO Comments: PATIENT WAS FASTINGPERFORMED BY: Only-apartmentsCarrier ClinicUtvrst1422 [facility] [id number] ([id number]) AND (18673) Creatinine, Urine 94.9 mg/dL (Normal) Range: 15.0-278.0 Microalb/Creat Ratio 10.7 {mg/g_creat} (Normal) Range: 0.0-30.0 Microalbumin, Urine 10.2 ug/mL (Normal) Range: 0.0-17.0 :35 CBC WITH MANUAL DIFF Comments: PATIENT WAS FASTINGPERFORMED BY: [facility]6370 [facility] [id number] Information: [id number] ([id number]) Baso (Absolute) 0.0 {x10E3/uL} (Normal) Range: 0.0-0.2 Eos (Absolute) 0.1 {x10E3/uL} (Normal) Range: 0.0-0.4 Immature Grans (Abs) 0.0 {x10E3/uL} (Normal) Range: 0.0-0.1 Immature Granulocytes 0 % (Normal) Range: 0-1 Basos 1 % (Normal) Range: 0-3 Lymphs (Absolute) 1.8 {x10E3/uL} (Normal) Range: 0.7-4.5 Monocytes(Absolute) 0.4 {x10E3/uL} (Normal) Range: 0.1-1.0 Neutrophils (Absolute) 1.5 {x10E3/uL} (Abnormal) Range: 1.8-7.8 Eos 4 % (Normal) Range: 0-7 Lymphs 47 % (Abnormal) Range: 14-46 Monocytes 9 % (Normal) Range: 4-13 Neutrophils 39 % (Abnormal) Range: 40-74 MCH 30.0 pg (Normal) Range: 27.0-34.0 MCHC 31.9 g/dL (Abnormal) Range: 32.0-36.0 Platelets 188 {x10E3/uL} (Normal) Range: 140-415 RDW 13.2 % (Normal) Range: 11.7-15.0 Hematocrit 39.8 % (Normal) Range: 34.0-44.0 MCV 94 fL (Normal) Range: 80-98 Hemoglobin 12.7 g/dL (Normal) Range: 11.5-15.0 RBC 4.23 {x10E6/uL} (Normal) Range: 3.80-5.10 WBC 3.9 {x10E3/uL} (Abnormal) Range: 4.0-10.5 :35 METABOLIC PANEL, COMPREHENSIVE Comments: PATIENT WAS FASTINGPERFORMED BY: LabCoCarrier ClinicHkuaqg9995 [facility] [id number] ([id number]) ALT (SGPT) 12 [iU]/L (Normal) Range: 0-40 AST (SGOT) 16 [iU]/L (Normal) Range: 0-40 A/G Ratio 1.7 (Normal) Range: 1.1-2.5 Albumin, Serum 4.0 g/dL (Normal) Range: 3.6-4.8 Alkaline Phosphatase, S 64 [iU]/L (Normal) Range: 25-165 Bilirubin, Total 0.3 mg/dL (Normal) Range: 0.0-1.2 Globulin, Total 2.3 g/dL (Normal) Range: 1.5-4.5 Protein, Total, Serum 6.3 g/dL (Normal) Range: 6.0-8.5 Calcium, Serum 8.8 mg/dL (Normal) Range: 8.6-10.2 Carbon Dioxide, Total 25 mmol/L (Normal) Range: 20-32 Chloride, Serum 104 mmol/L (Normal) Range: 97-108 BUN 18 mg/dL (Normal) Range: 5-26 BUN/Creatinine Ratio 23 (Normal) Range: 8-27 Creatinine, Serum 0.78 mg/dL (Normal) Range: 0.57-1.00 eGFR >59 mL/min/1.73 (Normal) eGFR AfricanAmerican >59 mL/min/1.73 Comments: Note: Persistent reduction for 3 months or more in an eGFR<60 mL/min/1.73 m2 defines CKD. Patients with eGFR values>/=60 mL/min/1.73 m2 may also have CKD if evidence of persistentproteinuria is (Normal) present. Additional information may be found [email or web address].org. Potassium, Serum 4.3 mmol/L (Normal) Range: 3.5-5.2 Sodium, Serum 142 mmol/L (Normal) Range: 135-145 Glucose, Serum 110 mg/dL (Abnormal) Range: 65-99 :35 LIPID PANEL (22133) Comments: PATIENT WAS FASTINGPERFORMED BY: CLARITA [facility] Zeeerm5402 [facility]Nov[facility] [id number] LDL Cholesterol Calc 103 mg/dL (Abnormal) Range: 0-99 LDL/HDL Ratio 3.0 {ratio_units} (Normal) Range: 0.0-3.2 HDL Cholesterol 34 mg/dL (Abnormal) Comments: According to ATP-III Guidelines, HDL-C >59 mg/dL is considered anegative risk factor for CHD. VLDL Cholesterol Peg 38 mg/dL (Normal) Range: 5-40 Cholesterol, Total 175 mg/dL (Normal) Range: 100-199 Triglycerides 190 mg/dL (Abnormal) Range: 0-149 :31 HgA1C , Office (35651) HgA1C , Office 6.2 % (Normal) Range: 4.6 - 7.1 :31 Blood Glucose , Office (70547) Blood Glucose , Office 113 (Normal) :03 BILAT SCRN DIGITAL & CAD Radiology Report See Note (Normal) Comments: Exam Number: [id number] MAMMOGRAPHY - BILATERAL SCREENING INDICATION:Routine annual screening examination. PERTINENT HISTORY:Non-contributory. TECHNIQUE:Digital examination. Mediolateral oblique (MLO) a nd craniocaudad(CC) views of both breasts were obtained. CAD was performed on thisstudy. COMPARISON:November 21, 2006. January 05, 2009. FINDINGS:The breast composition is composed of scattered fibroglandular densities. There are no masses or suspicious microcalcifications. There are benign calcifications. There is a few small benigndensities. IMPRESSION:Normal bilateral screening mammogram. Yearly follow- up recommended. ASSESSMENT CATEGORY:Category 2: Benign finding(s) Approximately 10% of breast cancers are not detected by mammography.A normal mammogram should not delay biopsy of a clinicallysuspiciou s abnormality.This addendum is being created for the purpose of attaching a ResultCode to this exam.ADDENDUM: [id number] HPBI/MDS Reported By: BRIAN JIMENEZ M.D. :02 DEXA BONE DENSITY STUDY () Radiology Report See Note (Normal) Comments: Exam Number: [id number] CLINICAL:Assess bone density EXAMINATION:DUAL ENERGY X-RAY ABSORPTIOMETRY / DEXA. TECHNIQUE:Bone Density Measurements (BMD) of left hip and left forearm wereobtained using a [employer] dual energy scanner. COMPARISON:A report from 2001 is available for review. FINDINGS: Left Femur Total: g/cm2 (1.074) / T-score (0.5) / Z-score (1.5)Left Radius Total: g/cm2 (0 .734) / T-score (-1.7) / Z-score (native0.2) Additional Abnormal T-Scores: None. The T-Scores on the most recent examination were: Left Femur Total: 1.110 g/cm? IMPRESSION:The patient is considered oste openic, according to measurements ofbone density in the left radius, according to World HealthOrganization (WHO) criteria. By this standard, fracture risk ismoderate. The T score in the left femur was 0.5, which is similaror slightly improved compared with the T score of 0.2 reported onthe previous study. Reference Information:The T-score is the number of standard deviations above or below thestandar d which is normal for young adults at their peak bone mineraldensity. The World Health Organization (WHO) interprets the T-scoresas follows: Above -1 Normal bone densityBetween -1 and -2.5 OsteopeniaEqu al to / or below -2.5 Osteoporosis As a practical clinical guideline, osteopenia may be graded asfollows:Mild -1 through -1.5Moderate -1.6 through -2.0Severe - 2.1 through -2.4 The Z-score is the number of standard deviations above or belowage-matched controls. A Z-score of less than -1.5 would beconsidered abnormal. References:1. NIH Osteoporosis and Related Bone Diseases http://www.osteo.org2. Android Software Engineer ational Society for Clinical Densitometryhttp://www.iscd.org3. National Osteoporosis Foundation http://www.nof.org Reported By: NELLY LINCOLN M.D. :11 HgA1C , Office (29998) HgA1C , Office 6.2 % (Normal) Range: 4.6 - 7.1 :11 Blood Glucose , Office (30735) Blood Glucose , Office 186 (Normal) :25 TSH (05574) Comments: PATIENT WAS FASTINGPERFORMED BY: [facility] Jfkfjc4136 [facility] [id number] TSH 2.340 {uIU/mL} (Normal) Range: 0.450-4.500 :25 METABOLIC PANEL, COMPREHENSIVE Comments: PATIENT WAS FASTINGPERFORMED BY: LabCoCarrier ClinicLzhhqh5357 [facility] [id number] ([id number]) ALT (SGPT) 10 [iU]/L (Normal) Range: 0-40 AST (SGOT) 14 [iU]/L (Normal) Range: 0-40 A/G Ratio 1.8 (Normal) Range: 1.1-2.5 Albumin, Serum 4.4 g/dL (Normal) Range: 3.6-4.8 Alkaline Phosphatase, S 73 [iU]/L (Normal) Range: 25-165 Bilirubin, Total 0.4 mg/dL (Normal) Range: 0.1-1.2 Calcium, Serum 9.4 mg/dL (Normal) Range: 8.6-10.2 Carbon Dioxide, Total 26 mmol/L (Normal) Range: 20-32 Chloride, Serum 102 mmol/L (Normal) Range: 97-108 Globulin, Total 2.5 g/dL (Normal) Range: 1.5-4.5 Potassium, Serum 4.1 mmol/L (Normal) Range: 3.5-5.2 Protein, Total, Serum 6.9 g/dL (Normal) Range: 6.0-8.5 BUN/Creatinine Ratio 27 (Normal) Range: 8-27 eGFR AfricanAmerican >59 mL/min/1.73 Comments: Note: Persistent reduction for 3 months or more in an eGFR<60 mL/min/1.73 m2 defines CKD. Patients with eGFR values>/=60 mL/min/1.73 m2 may also have CKD if evidence of persistentproteinuria is (Normal) present. Additional information may be found atwww.kdoqi.org. Sodium, Serum 142 mmol/L (Normal) Range: 135-145 BUN 17 mg/dL (Normal) Range: 5-26 Creatinine, Serum 0.64 mg/dL (Normal) Range: 0.57-1.00 eGFR >59 mL/min/1.73 (Normal) Glucose, Serum 130 mg/dL (Abnormal) Range: 65-99 19-Fch-74145:25 CBC WITH MANUAL DIFF Comments: PATIENT WAS FASTINGPERFORMED BY: [facility]6370 [facility] [id number] Information: ADD DRAW FEE [id number] AND [id number] (97076) Baso (Absolute) 0.0 {x10E3/uL} (Normal) Range: 0.0-0.2 Basos 1 % (Normal) Range: 0-3 Eos 3 % (Normal) Range: 0-7 Eos (Absolute) 0.1 {x10E3/uL} (Normal) Range: 0.0-0.4 Lymphs 39 % (Normal) Range: 14-46 Lymphs (Absolute) 1.8 {x10E3/uL} (Normal) Range: 0.7-4.5 Monocytes 8 % (Normal) Range: 4-13 Monocytes(Absolute) 0.4 {x10E3/uL} (Normal) Range: 0.1-1.0 Neutrophils (Absolute) 2.2 {x10E3/uL} (Normal) Range: 1.8-7.8 MCHC 33.8 g/dL (Normal) Range: 32.0-36.0 Neutrophils 49 % (Normal) Range: 40-74 Platelets 173 {x10E3/uL} (Normal) Range: 140-415 RDW 13.6 % (Normal) Range: 11.7-15.0 Hematocrit 39.5 % (Normal) Range: 34.0-44.0 MCH 32.1 pg (Normal) Range: 27.0-34.0 MCV 95 fL (Normal) Range: 80-98 Hemoglobin 13.4 g/dL (Normal) Range: 11.5-15.0 RBC 4.17 {x10E6/uL} (Normal) Range: 3.80-5.10 WBC 4.5 {x10E3/uL} (Normal) Range: 4.0-10.5 :25 LIPID PANEL (38150) Comments: PATIENT WAS FASTINGPERFORMED BY: [facility]6370 [facility] [id number] LDL/HDL Ratio 2.6 {ratio_units} (Normal) Range: 0.0-3.2 Cholesterol, Total 183 mg/dL (Normal) Range: 100-199 HDL Cholesterol 34 mg/dL (Abnormal) Comments: According to ATP-III Guidelines, HDL-C >59 mg/dL is considered anegative risk factor for CHD. LDL Cholesterol Calc 90 mg/dL (Normal) Range: 0-99 Triglycerides 295 mg/dL (Abnormal) Range: 0-149 VLDL Cholesterol Peg 59 mg/dL (Abnormal) Range: 5-40 :02 HgA1C , Office (39008) HgA1C , Office 6.2 % (Normal) Range: 4.6 - 7.1 :02 Blood Glucose , Office (85555) Blood Glucose , Office 152 (Normal) :02 HEPATIC FUNCTION PANEL Comments: PATIENT WAS FASTINGPERFORMED BY: [facility]6370 [facility] [id number] ([id number]) Alkaline Phosphatase, S 63 [iU]/L (Normal) Range: 25-165 ALT (SGPT) 13 [iU]/L (Normal) Range: 0-40 AST (SGOT) 14 [iU]/L (Normal) Range: 0-40 Bilirubin, Direct 0.10 mg/dL (Normal) Range: 0.00-0.40 Bilirubin, Total 0.4 mg/dL (Normal) Range: 0.1-1.2 Albumin, Serum 4.6 g/dL (Normal) Range: 3.6-4.8 Protein, Total, Serum 7.0 g/dL (Normal) Range: 6.0-8.5 :02 LIPID PANEL (44965) Comments: PATIENT WAS FASTINGPERFORMED BY: [facility]6370 [facility] [id number] LDL Cholesterol Calc 114 mg/dL (Abnormal) Range: 0-99 LDL/HDL Ratio 3.6 {ratio_units} (Abnormal) Range: 0.0-3.2 HDL Cholesterol 32 mg/dL (Abnormal) Comments: According to ATP-III Guidelines, HDL-C >59 mg/dL is considered anegative risk factor for CHD. Triglycerides 319 mg/dL (Abnormal) Range: 0-149 VLDL Cholesterol Peg 64 mg/dL (Abnormal) Range: 5-40 Cholesterol, Total 210 mg/dL (Abnormal) Range: 100-199 :45 HgA1C , Office (85363) HgA1C , Office 6.2 % (Normal) Range: 4.6 - 7.1 :45 Blood Glucose , Office (78925) Blood Glucose , Office 193 (Normal) :34 MICROALBUMIN: CREATININE RATIO Comments: PATIENT WAS FASTINGPERFORMED BY: [employer] Cwssmn1388 [facility] [id number] ([id number]) AND (03266) Creatinine, Urine 126.3 mg/dL (Normal) Range: 15.0-278.0 Microalb/Creat Ratio 7.6 {mg/g_creat} (Normal) Range: 0.0-30.0 Microalbumin, Urine 9.6 ug/mL (Normal) Range: 0.0-17.0 :34 METABOLIC PANEL, COMPREHENSIVE Comments: PATIENT WAS FASTINGClinical Information: ADD [id number] CC:[id number] BY: Only-apartmentsCarrier ClinicXmrbof8695 [facility] [id number] ([id number]) A/G Ratio 1.7 (Normal) Range: 1.1-2.5 Albumin, Serum 4.6 g/dL (Normal) Range: 3.6-4.8 Alkaline Phosphatase, S 78 [iU]/L (Normal) Range: 25-165 ALT (SGPT) 9 [iU]/L (Normal) Range: 0-40 AST (SGOT) 11 [iU]/L (Normal) Range: 0-40 Bilirubin, Total 0.3 mg/dL (Normal) Range: 0.1-1.2 BUN 18 mg/dL (Normal) Range: 5-26 BUN/Creatinine Ratio 25 (Normal) Range: 8-27 Calcium, Serum 9.8 mg/dL (Normal) Range: 8.5-10.6 Carbon Dioxide, Total 26 mmol/L (Normal) Range: 20-32 Chloride, Serum 100 mmol/L (Normal) Range: 97-108 Creatinine, Serum 0.73 mg/dL (Normal) Range: 0.57-1.00 eGFR >59 mL/min/1.73 (Normal) eGFR AfricanAmerican >59 mL/min/1.73 Comments: Note: Persistent reduction for 3 months or more in an eGFR<60 mL/min/1.73 m2 defines CKD. Patients with eGFR values>/=60 mL/min/1.73 m2 may also have CKD if evidence of persistentproteinuria is (Normal) present. Additional information may be found atwww.kdoqi.org. Globulin, Total 2.7 g/dL (Normal) Range: 1.5-4.5 Glucose, Serum 103 mg/dL (Abnormal) Range: 65-99 Potassium, Serum 4.6 mmol/L (Normal) Range: 3.5-5.2 Protein, Total, Serum 7.3 g/dL (Normal) Range: 6.0-8.5 Sodium, Serum 143 mmol/L (Normal) Range: 135-145 :34 HEPATIC FUNCTION PANEL Comments: PATIENT WAS FASTINGPERFORMED BY: [employer]70 [facility] [id number] ([id number]) Bilirubin, Direct 0.08 mg/dL (Normal) Range: 0.00-0.40 :34 LIPID PANEL (00000) Comments: PATIENT WAS FASTINGPERFORMED BY: [employer]6370 [facility] [id number] Cholesterol, Total 186 mg/dL (Normal) Range: 100-199 HDL Cholesterol 38 mg/dL (Abnormal) Comments: According to ATP-III Guidelines, HDL-C >59 mg/dL is considered anegative risk factor for CHD. LDL Cholesterol Calc 102 mg/dL (Abnormal) Range: 0-99 LDL/HDL Ratio 2.7 {ratio_units} (Normal) Range: 0.0-3.2 Triglycerides 232 mg/dL (Abnormal) Range: 0-149 VLDL Cholesterol Peg 46 mg/dL (Abnormal) Range: 5-40 98-Jeb-150692:36 HgA1C , Office (06035) HgA1C , Office 6.3 % (Normal) Range: 4.6 - 7.1 75-Udh-195097:36 Blood Glucose , Office (73212) Blood Glucose , Office 129 (Normal) 5-Rjq-577872:12 BILAT SCRN DIGITAL & CAD Radiology Report See Note (Normal) Comments: Exam Number: [id number] MAMMOGRAM, BILATERAL SCREENING DIGITAL AND CAD HISTORY: Screening Full field digital images were obtained in mediolateral oblique andcraniocaudal projections. CAD images were rev iewed. The current study is compared to the examinations of October 10, 2005,and November 21, 2006. There is moderately dense fibroglandular parenchyma present. There isno skin thickening or retraction, architectural distortion, or clusterof suspicious microcalcifications. There are a few small densitiesand scattered calcifications which have not significantly changed. Ifthere is no suspicious palpa ble abnormality, followup mammogram in 1year is recommended. IMPRESSIONThere is no radiographic evidence of malignancy identified. FINAL ASSESSMENTBenign findings. BIRADS Category 2. A letter regardi ng these results has been sent to the patient. This interpretation was rendered by a radiologist certified under theMammography Quality Standards Act of 1992 (MQSA). The mammograms werealso examined w [facility] computer-aided detection software ([employer], [employer] Reported By: BRIAN JIMENEZ M.D. 05-Myj-178338:57 HgA1C , Office (06426) HgA1C , Office 6.3 % (Normal) Range: 4.6 - 7.1 15-Aem-998743:57 Blood Glucose , Office (13035) Blood Glucose , Office 111 (Normal) 09-Awi-39415:40 COMP METABOLIC A/G 1.1 {RATIO} (Normal) Range: 0.9-2.4 ALB 3.7 g/dL (Normal) Range: 3.4-5.0 ALK P 66 U/L (Normal) Range: 50-136 ALT 26 U/L (Abnormal) Range: 30-65 AST 9 U/L (Abnormal) Range: 15-37 BUN 22 mg/dL (Abnormal) Range: 7-18 BUN/CRE 31.4 {RATIO} Range: 10-20 (Abnormal) CA 8.4 mg/dL (Abnormal) Range: 8.5-10.1 CL 105 mmol/L (Normal) Range: 98-107 CO2 28.9 mmol/L (Normal) Range: 21.0-32.0 CREAT,SERUM 0.7 mg/dL (Normal) Range: 0.6-1.0 EST GFR 89 mL/min (Normal) EST GFR - AA 108 mL/min (Normal) Comments: ESTIMATED GLOMERULAR FILTRATION RATE The National Kidney Foundation (NKF) guidelines forChronic kidney disease (CKD) recommends all laboratoriesestimate the level of glomerular filtration ra te (GFR)in p atients from age 18 - 70 years of age.The eGFR for patient's is the eGFRmultiplied by 1.212. [facility] Laboratory uses the abbreviated Modification of Diet inRenal Disease (MDRD) study equati on to calculate the eGFR.The Estimated GFR equation is not applicable for patients<18 years of age or patients >70 years of age.The following conditions may alter the eGFR calculationresult: extre mes in body size, severe malnutrition orobesity, skeletal muscle disease, paraplegia, quadriplegia,vegetarian diet, , certain drug therapy and rapidlychanging kidney function. Association o f GFR and Staging of Kidney Disease*GFR (mL/min) With Kidney Disease W/O Kidney Disease>/= 90 Stage One Rjdxfv38 - 89 Stage Two Suspect Decreased GFR30 - 59 Stage Three Stage Three15 - 29 Stage Four Stage Four< 15 or Dialysis Stage Five Stage Five *Each stage assumes the associ ated GFR level has been ineffect for at least three months.Additional studies & clinical assessments are indicated toconclude diagnosis of Chronic Kidney Disease (CKD). GAP 7 (Normal) Range: 5-15 GLOB 3.5 g/dL (Normal) Range: 2.7-4.2 GLU 100 mg/dL (Normal) Range: 70-110 K 3.7 mmol/L (Normal) Range: 3.5-5.1 NA 141 mmol/L (Normal) Range: 136-145 T BILI 0.40 mg/dL (Normal) Range: 0.00-1.00 T PROT 7.2 g/dL (Normal) Range: 6.4-8.2 :40 D BILI 0.07 mg/dL (Normal) Range: 0.00-0.30 02-Paz-16579:40 LIPID CHOL 223 mg/dL (Abnormal) Comments: <200 mg/dL Desirable 200-240 mg/dL Borderline >240 mg/dL High Risk HDL 41 mg/dL (Normal) Comments: Reference Range HDL <40 mg/dL Low HDL Cholesterol HDL >or= 60 mg/dL High HDL Cholesterol LDL 154 mg/dL (Abnormal) Range: 0-130 TRIG 141 mg/dL (Normal) Comments: Serum Triglycerides Reference Interval Normal <150 mg/dL Borderline high 150 - 199 mg/dL High 200 - 499 mg/dL Very High > or = 500 mg/dL VLDL 28 mg/dL (Normal) Range: 5-40 58-Jaq-162020:30 HgA1C , Office (75261) HgA1C , Office 6.2 % (Normal) Range: 4.6 - 7.1 22-Cdp-240049:30 Blood Glucose , Office (29358) Blood Glucose , Office 167 (Normal) :33 CBCD,SMEAR DIFF CELLS COUNTED 100 (Normal) EOS 1 % (Normal) Range: 0-5 HCT 39.7 % (Normal) Range: 37-47 HGB 13.4 g/dL (Normal) Range: 12.0-16.0 LYMPH 31 % (Normal) Range: 19-41 MCH 30.1 pg (Normal) Range: 27.0-32.0 MCHC 33.7 g/dL (Normal) Range: 32-36 MCV 89.2 fL (Normal) Range: 81-99 MONOCYTE 8 % (Normal) Range: 0-10 PLT 160 K/mm3 (Normal) Range: 150-450 PLT EST SeeNote (Normal) Comments: Result: ADEQUATE RBC 4.45 {M/mm3} (Normal) Range: 4.2-5.4 RDW 14.4 % (Normal) Range: 11.6-14.6 RED CELL MORPH SeeNote {NORMAL} (Normal) Comments: Result: NORM C+C SEGS 60 % (Normal) Range: 47-70 WBC 4.6 K/mm3 (Normal) Range: 4.4-11.0 :33 COMP METABOLIC A/G 1.2 {RATIO} (Normal) Range: 0.9-2.4 ALB 3.8 g/dL (Normal) Range: 3.4-5.0 ALK P 73 U/L (Normal) Range: 50-136 ALT 26 U/L (Abnormal) Range: 30-65 AST 11 U/L (Abnormal) Range: 15-37 BUN 19 mg/dL (Abnormal) Range: 7-18 BUN/CRE 23.8 {RATIO} (Abnormal) Range: 10-20 CA 8.4 mg/dL (Abnormal) Range: 8.5-10.1 CL 103 mmol/L (Normal) Range: 98-107 CO2 30.3 mmol/L (Normal) Range: 21.0-32.0 CREAT,SERUM 0.8 mg/dL (Normal) Range: 0.6-1.0 GAP 8 (Normal) Range: 5-15 GLOB 3.3 g/dL (Normal) Range: 2.7-4.2 GLU 93 mg/dL (Normal) Range: 70-110 K 4.0 mmol/L (Normal) Range: 3.5-5.1 NA 141 mmol/L (Normal) Range: 136-145 T BILI 0.37 mg/dL (Normal) Range: 0.00-1.00 T PROT 7.1 g/dL (Normal) Range: 6.4-8.2 :33 LIPID HDL 38 mg/dL (Normal) Comments: Reference Range HDL <40 mg/dL Low HDL Cholesterol HDL >or= 60 mg/dL High HDL Cholesterol LDL 122 mg/dL (Normal) Range: 0-130 TRIG 163 mg/dL (Normal) Comments: Serum Triglycerides Reference Interval Normal <150 mg/dL Borderline high 150 - 199 mg/dL High 200 - 499 mg/dL Very High > or = 500 mg/dL VLDL 33 mg/dL (Normal) Range: 5-40 CHOL 193 mg/dL (Normal) Comments: <200 mg/dL Desirable 200-240 mg/dL Borderline >240 mg/dL High Risk :33 MICROALB:CRE UR MALB:CREAT 13.1 {mg/g_CRE} (Normal) MICROALBUMIN,UR 12.5 mg/L (Normal) UR CREAT 95.7 mg/dL (Normal) :33 VITAMIN B12 775 pg/mL (Normal) Range: 211-911 :51 HgA1C , Office (09715) HgA1C , Office 5.9 % (Normal) Range: 4.6 - 7.1 25-Rke-595726:51 Blood Glucose , Office (88249) Blood Glucose , Office 113 (Normal) :49 LIPID HDL 32 mg/dL (Abnormal) Comments: Reference Range HDL <40 mg/dL Low HDL Cholesterol HDL >or= 60 mg/dL High HDL Cholesterol LDL 84 mg/dL (Normal) Range: 0-130 TRIG 338 mg/dL (Abnormal) Comments: Serum Triglycerides Reference Interval Normal <150 mg/dL Borderline high 150 - 199 mg/dL High 200 - 499 mg/dL Very High > or = 500 mg/dL VLDL 68 mg/dL (Abnormal) Range: 5-40 CHOL 184 mg/dL (Normal) Comments: <200 mg/dL Desirable 200-240 mg/dL Borderline >240 mg/dL High Risk :01 Urinalysis, Office (18111) UA - BILIRUBIN Negative (Normal) UA - BLOOD Negative (Normal) UA - GLUCOSE Negative (Normal) UA - KETONES Negative mg/dL (Normal) UA - LEUKOCYTE ESTERASE Negative (Normal) UA - NITRITE Negative (Normal) UA - PH 7.5 (Normal) UA - PROTEIN Negative mg/dL (Normal) UA - SPECIFIC GRAVITY 1.010 (Normal) URINE UROBILINGN JEWELS 2 mg/dL (Normal) TIMED :34 GLUP 95 mg/dL (Normal) Comments: GLU,2HPPG 75gm GLUC PPG GLUP from 0603:[id number]. 14-Eqi-625503:44 CHEST, PA AND LATERAL Radiology Report See Note (Normal) Comments: Exam Number: [id number] PA AND LATERAL CHEST HISTORY Being done for chest pain. FINDINGSCardiac configuration is upper limits of normal to mildly enlarged.There is mild elevation, left hemid iaphragm. No acute infiltrate,effusion, or pneumothorax is identified. There is moderate spurformation noted in the lower dorsal spine. IMPRESSION1. A number of chronic changes.2. No acute infiltrate. Reported By: COREY MERCER M.D. 58-Qcx-854700:20 URINE HANSA CULTURE-IDENTIFICATN Comments: PATIENT NOT FASTINGClinical Information: ADD [id number] PERFORMED BY: LabCoCarrier ClinicPyqbau1649 [facility] [id number] ([id number]) Antimicrobial MIHEAD (Normal) Comments: S = Susceptible; I = Intermediate; R = Resistant P = Positive; N = Negative MICS are expressed in micrograms per mL Antibiotic RSLT#1 RSLT#2 Susceptibility RSLT#3 RSLT#4Amoxicillin/Clavulanic Acid SAmpicillin SCefepime SCeftriaxone SCefuroxime SCephalothin SCiprofloxacin SESBL NGentamicin SImipenem SLevofloxacin SNitrofurantoin S Piperacillin/Tazobactam STetracycline STobramycin STrimethoprim/Sulfa S Result 1 Escherichia coli Comments: Greater than 100,000 colony forming units per mL (Normal) Urine Final report Culture,Comprehensive (Normal) 04-Ffi-43872:00 CBC With Differential/Platelet Comments: PATIENT NOT FASTINGPERFORMED BY: CLARITA [facility] [id number] Baso (Absolute) 0.1 {x10E3/uL} (Normal) Range: 0.0-0.2 Basos 1 % (Normal) Range: 0-3 Eos 3 % (Normal) Range: 0-7 Eos (Absolute) 0.2 {x10E3/uL} (Normal) Range: 0.0-0.4 Hematocrit 38.8 % (Normal) Range: 34.0-44.0 Hemoglobin 13.1 g/dL (Normal) Range: 11.5-15.0 Lymphs 31 % (Normal) Range: 14-46 Lymphs (Absolute) 1.9 {x10E3/uL} (Normal) Range: 0.7-4.5 MCH 31.4 pg (Normal) Range: 27.0-34.0 MCHC 33.8 g/dL (Normal) Range: 32.0-36.0 MCV 93 fL (Normal) Range: 80-98 Monocytes 6 % (Normal) Range: 4-13 Monocytes(Absolute) 0.4 {x10E3/uL} (Normal) Range: 0.1-1.0 Neutrophils 59 % (Normal) Range: 40-74 Neutrophils (Absolute) 3.5 {x10E3/uL} (Normal) Range: 1.8-7.8 Platelets 221 {x10E3/uL} (Normal) Range: 140-415 RBC 4.19 {x10E6/uL} (Normal) Range: 3.80-5.10 RDW 14.7 % (Normal) Range: 11.7-15.0 WBC 6.0 {x10E3/uL} (Normal) Range: 4.0-10.5 [id number] Comp. Metabolic Panel (14) Comments: PATIENT NOT FASTINGPERFORMED BY: [id number] [id number] A/G Ratio 1.7 (Normal) Range: 1.1-2.5 Albumin, Serum 4.3 g/dL (Normal) Range: 3.6-4.8 Alkaline Phosphatase, S 68 [iU]/L (Normal) Range: 25-165 ALT (SGPT) 16 [iU]/L (Normal) Range: 0-40 AST (SGOT) 14 [iU]/L (Normal) Range: 0-40 Bilirubin, Total 0.3 mg/dL (Normal) Range: 0.1-1.2 BUN 24 mg/dL (Normal) Range: 5-26 BUN/Creatinine Ratio 34 (Abnormal) Range: 8-27 Calcium, Serum 9.0 mg/dL (Normal) Range: 8.5-10.6 Carbon Dioxide, Total 22 mmol/L (Normal) Range: 20-32 Chloride, Serum 104 mmol/L (Normal) Range: 97-108 Creatinine, Serum 0.70 mg/dL (Normal) Range: 0.50-1.50 Globulin, Total 2.6 g/dL (Normal) Range: 1.5-4.5 Glom Filt Rate, Est >60 mL/min (Normal) Range: 60-128 Glucose, Serum 116 mg/dL (Abnormal) Range: 65-99 If -Cyp[place] >60 mL/min (Normal) Range: 60-128 Comments: Note: Persistent reduction for 3 months or more in an eGFR<60 mL/min/1.73 m2 defines CKD. Patients with eGFR values>/=60 mL/min/1.73 m2 may also have CKD if evidence of persistentproteinuria is present. .Additional information may be found at [email or web address]. Potassium, Serum 3.7 mmol/L (Normal) Range: 3.5-5.2 Protein, Total, Serum 6.9 g/dL (Normal) Range: 6.0-8.5 Sodium, Serum 141 mmol/L (Normal) Range: 135-145 :18 LIPID CHOL 209 mg/dL (Abnormal) Comments: <200 mg/dL Desirable 200-240 mg/dL Borderline >240 mg/dL High Risk HDL 40 mg/dL (Normal) Comments: Reference Range HDL <40 mg/dL Low HDL Cholesterol HDL >or= 60 mg/dL High HDL Cholesterol LDL 113 mg/dL (Normal) Range: 0-130 TRIG 280 mg/dL (Abnormal) Comments: Serum Triglycerides Reference Interval Normal <150 mg/dL Borderline high 150 - 199 mg/dL High 200 - 499 mg/dL Very High > or = 500 mg/dL VLDL 56 mg/dL (Abnormal) Range: 5-40 :19 CBCD,SMEAR DIFF BASOPHIL 1 % (Normal) Range: 0-1 CELLS COUNTED 100 (Normal) EOS 3 % (Normal) Range: 0-5 LYMPH 38 % (Normal) Range: 19-41 MCH 31.6 pg (Normal) Range: 27.0-32.0 MCHC 34.3 g/dL (Normal) Range: 32-36 MCV 91.9 fL (Normal) Range: 81-99 MONOCYTE 14 % (Abnormal) Range: 0-10 PLT 234 K/mm3 (Normal) Range: 150-450 PLT EST SeeNote (Normal) Comments: Result: ADEQUATE RDW 13.0 % (Normal) Range: 11.6-14.6 RED CELL MORPH SeeNote {NORMAL} (Normal) Comments: Result: NORM C+C SEGS 44 % (Abnormal) Range: 47-70 HCT 40.1 % (Normal) Range: 37-47 HGB 13.8 g/dL (Normal) Range: 12.0-16.0 RBC 4.36 {M/mm3} (Normal) Range: 4.2-5.4 WBC 5.2 K/mm3 (Normal) Range: 4.4-11.0 :19 COMP METABOLIC A/G 1.2 {RATIO} (Normal) Range: 0.9-2.4 ALB 4.0 g/dL (Normal) Range: 3.4-5.0 ALK P 60 U/L (Normal) Range: 50-136 ALT 35 [iU]/L (Normal) Range: 30-65 AST 20 U/L (Normal) Range: 15-37 BUN 20 mg/dL (Abnormal) Range: 7-18 BUN/CRE 22.2 {RATIO} (Abnormal) Range: 10-20 CA 8.5 mg/dL (Normal) Range: 8.5-10.1 CL 104 mmol/L (Normal) Range: 98-107 CO2 31.9 mmol/L (Normal) Range: 21.0-32.0 Comments: Please Note Reference Interval Change CREAT,SERUM 0.9 mg/dL (Normal) Range: 0.6-1.0 GAP 6 (Normal) Range: 5-15 GLOB 3.3 g/dL (Normal) Range: 2.7-4.2 Comments: Please Note Reference Interval Change GLU 117 mg/dL (Abnormal) Range: 70-110 Comments: Fasting Glucose result from 110 to <126 mg/dL suggests IMPAIRED HOMEOSTASIS per A.D.A. criteria. K 4.2 mmol/L (Normal) Range: 3.5-5.1 NA 142 mmol/L (Normal) Range: 136-145 T BILI 0.42 mg/dL (Normal) Range: 0.00-1.00 T PROT 7.3 g/dL (Normal) Range: 6.4-8.2 :19 LIPID CHOL 173 mg/dL (Normal) Comments: <200 mg/dL Desirable 200-240 mg/dL Borderline >240 mg/dL High Risk HDL 33 mg/dL (Abnormal) Comments: Reference Range HDL <40 mg/dL Low HDL Cholesterol HDL >or= 60 mg/dL High HDL Cholesterol LDL 81 mg/dL (Normal) Range: 0-130 TRIG 293 mg/dL (Abnormal) Comments: Serum Triglycerides Reference Interval Normal <150 mg/dL Borderline high 150 - 199 mg/dL High 200 - 499 mg/dL Very High > or = 500 mg/dL VLDL 59 mg/dL (Abnormal) Range: 5-40 :19 MICROALBUMIN,UR 11.6 mg/L (Normal) :19 TSH 1.53 {uIU/mL} (Normal) Range: 0.34-4.82 :33 HgA1C , Office (12809) HgA1C , Office 5.2 % (Normal) Range: 4.6 - 7.1 :33 Blood Glucose , Office (16254) Blood Glucose , Office 172 (Normal) :08 FEMUR,2 VIEWS Radiology Report See Note (Normal) Comments: Exam Number: [id number] AP AND LATERAL LEFT TIBIA/FIBULA. HISTORYBeing done for trauma to the tibia/fibula, now having pain. FINDINGSWhat is seen of the knee and ankle is unremarkable. There is mildpoin ting of the tibial spines. No fracture is seen. Bony trabecularpattern and soft tissues are unremarkable. IMPRESSIONNo acute change noted. If the patient persists in being symptomatic,repeat study i n 5-7 days is suggested. TWO VIEWS LEFT FEMUR, AP AND LATERAL. HISTORYThe patient has sustained trauma, now having pain. FINDINGSThere is mild to moderate eburnation of the superior articulatingaspect of the hip. No fracture is identified. Bony trabecularpattern and soft tissues are unremarkable. If the patient persistsin being symptomatic, repeat study in 5-7 days is suggested. IMPRESSIONNo acut e fracture seen. Reported By: COREY MERCER M.D. :08 TIBIA & FIBULA,2 VIEWS Radiology Report See Note (Normal) Comments: Exam Number: [id number] AP AND LATERAL LEFT TIBIA/FIBULA. HISTORYBeing done for trauma to the tibia/fibula, now having pain. FINDINGSWhat is seen of the knee and ankle is unremarkable. There is mildpoin ting of the tibial spines. No fracture is seen. Bony trabecularpattern and soft tissues are unremarkable. IMPRESSIONNo acute change noted. If the patient persists in being symptomatic,repeat study i n 5-7 days is suggested. TWO VIEWS LEFT FEMUR, AP AND LATERAL. HISTORYThe patient has sustained trauma, now having pain. FINDINGSThere is mild to moderate eburnation of the superior articulatingaspect of the hip. No fracture is identified. Bony trabecularpattern and soft tissues are unremarkable. If the patient persistsin being symptomatic, repeat study in 5-7 days is suggested. IMPRESSIONNo acut e fracture seen. Reported By: COREY MERCER M.D. :32 CBCD,SMEAR DIFF CELLS COUNTED 100 (Normal) EOS 3 % (Normal) Range: 0-5 HCT 41.7 % (Normal) Range: 37-47 HGB 14.3 g/dL (Normal) Range: 12.0-16.0 LYMPH 35 % (Normal) Range: 19-41 MCH 31.5 pg (Normal) Range: 27.0-32.0 MCHC 34.4 g/dL (Normal) Range: 32-36 MCV 91.5 fL (Normal) Range: 81-99 MONOCYTE 3 % (Normal) Range: 0-10 PLT 202 K/mm3 (Normal) Range: 150-450 PLT EST SeeNote (Normal) Comments: Result: ADEQUATE RBC 4.56 {M/mm3} (Normal) Range: 4.2-5.4 RDW 13.0 % (Normal) Range: 11.6-14.6 RED CELL MORPH SeeNote {NORMAL} (Normal) Comments: Result: NORM C&C SEGS 59 % (Normal) Range: 47-70 WBC 5.4 K/mm3 (Normal) Range: 4.4-11.0 :32 COMP METABOLIC A/G 1.2 {RATIO} (Normal) Range: 0.9-2.4 ALB 3.8 g/dL (Normal) Range: 3.4-5.0 ALK P 58 U/L (Normal) Range: 50-136 ALT 35 [iU]/L (Normal) Range: 30-65 AST 16 U/L (Normal) Range: 15-37 BUN 13 mg/dL (Normal) Range: 7-18 BUN/CRE 18.6 {RATIO} (Normal) Range: 10-20 CA 8.2 mg/dL (Abnormal) Range: 8.5-10.1 CL 103 mmol/L (Normal) Range: 98-107 CO2 28.0 mmol/L (Normal) Range: 21.0-32.0 Comments: Please Note Reference Interval Change CREAT,SERUM 0.7 mg/dL (Normal) Range: 0.6-1.0 GAP 10 (Normal) Range: 5-15 GLOB 3.2 g/dL (Normal) Range: 2.7-4.2 Comments: Please Note Reference Interval Change GLU 107 mg/dL (Normal) Range: 70-110 K 3.8 mmol/L (Normal) Range: 3.5-5.1 NA 141 mmol/L (Normal) Range: 136-145 T BILI 0.44 mg/dL (Normal) Range: 0.00-1.00 T PROT 7.0 g/dL (Normal) Range: 6.4-8.2 :32 TSH 1.64 {uIU/mL} (Normal) Range: 0.34-4.82 :53 HgA1C , Office ([id number]) Comments: [facility] HgA1C , Office 5.3 % (Normal) Range: 4.6 - 7.1 :53 Blood Glucose , Office (37345) Comments: [facility] Blood Glucose , Office 94 (Normal) :55 LIPID CHOL 173 mg/dL (Normal) Comments: <200 mg/dL Desirable 200-240 mg/dL Borderline >240 mg/dL High Risk HDL 35 mg/dL (Normal) Comments: Reference Range HDL <40 mg/dL Low HDL Cholesterol HDL >or= 60 mg/dL High HDL Cholesterol LDL 102 mg/dL (Normal) Range: 0-130 TRIG 182 mg/dL (Normal) Comments: Serum Triglycerides Reference Interval Normal <150 mg/dL Borderline high 150 - 199 mg/dL High 200 - 499 mg/dL Very High > or = 500 mg/dL VLDL 36 mg/dL (Normal) Range: 5-40 :55 LIVER ALB 3.9 g/dL (Normal) Range: 3.4-5.0 ALK P 62 U/L (Normal) Range: 50-136 ALT 27 [iU]/L (Abnormal) Range: 30-65 AST 11 U/L (Abnormal) Range: 15-37 D BILI 0.09 mg/dL (Normal) Range: 0.00-0.30 T BILI 0.40 mg/dL (Normal) Range: 0.00-1.00 T PROT 7.1 g/dL (Normal) Range: 6.4-8.2 :18 Blood Glucose , Office (72627) Blood Glucose , Office 5.6 (Normal) :18 HgA1C , Office (23894) HgA1C , Office 142 % (Abnormal) Range: 4.6 - 7.1 [id number] FECAL WBC See Note (Normal) Comments: Precautions*: NOT APPLICABLE Comments: FECAL WBCs NONE SEEN :10 CBCD Comments: COMMENTS: IN AMPrecautions*: NOT APPLICABLE BASO% 0.6 % (Normal) Range: 0-1 EO% 1.4 % (Normal) Range: 0-5 HCT 39.8 % (Normal) Range: 37-47 HGB 13.7 g/dL (Normal) Range: 12.0-16.0 LY% 35.5 % (Normal) Range: 19-41 MCH 31.6 pg (Normal) Range: 27.0-32.0 MCHC 34.3 g/dL (Normal) Range: 32-36 MCV 92.0 fL (Normal) Range: 81-99 MONO% 10.6 % (Abnormal) Range: 0-10 MPV 9.4 fL (Normal) Range: 6.5-12.0 NEUT% 51.9 % (Normal) Range: 47-70 PLT 166 K/mm3 (Normal) Range: 150-450 RBC 4.32 {M/mm3} (Normal) Range: 4.2-5.4 RDW 13.3 % (Normal) Range: 11.6-14.6 WBC 4.4 K/mm3 (Normal) Range: 4.4-11.0 :10 COMP METABOLIC Comments: COMMENTS: IN AMPrecautions*: NOT APPLICABLE A/G 1.1 {RATIO} (Normal) Range: 0.9-2.4 ALB 3.7 g/dL (Normal) Range: 3.4-5.0 ALK P 56 U/L (Normal) Range: 50-136 ALT 27 [iU]/L (Abnormal) Range: 30-65 AST 19 U/L (Normal) Range: 15-37 BUN 19 mg/dL (Abnormal) Range: 7-18 BUN/CRE 27.1 {RATIO} (Abnormal) Range: 10-20 CA 8.0 mg/dL (Abnormal) Range: 8.5-10.1 CL 108 mmol/L (Abnormal) Range: 98-107 CO2 25.5 mmol/L (Normal) Range: 22.0-29.0 CREAT,SERUM 0.7 mg/dL (Normal) Range: 0.6-1.0 GAP 11 (Normal) Range: 5-15 GLOB 3.4 g/dL (Normal) Range: 2.3-3.5 GLU 100 mg/dL (Normal) Range: 70-110 K 3.5 mmol/L (Normal) Range: 3.5-5.1 NA 144 mmol/L (Normal) Range: 136-145 T BILI 0.57 mg/dL (Normal) Range: 0.00-1.00 T PROT 7.1 g/dL (Normal) Range: 6.4-8.2 :05 COMPLETE UA Comments: COMMENTS: BED [address] DR Webster*: NOT APPLICABLE BACTERIA 0 SEEN {/hpf} (Normal) BILIRUBIN URINE Inconcl (Normal) Comments: Dipstick inconclusive for bilirubin.See confirmatory ICTOTEST. CLARITY CLEAR (Normal) COLOR YELLOW (Normal) GLUCOSE, UR SeeNote (Normal) Comments: Result: NEGATIVE ICTOTEST Neg (Normal) KETONE UR 1+ mg/dL (Abnormal) LEUK ESTERASE SeeNote (Normal) Comments: Result: NEGATIVE MUCUS, URINE RARE {/hpf} (Normal) NITRITE UR SeeNote (Normal) Comments: Result: NEGATIVE OCCULT BLOOD-UR SeeNote (Normal) Comments: Result: NEGATIVE pH UR 5.5 (Normal) Range: 5.0-8.0 PROT DIPSTX TRACE (Normal) RBC-UA 0 SEEN {/hpf} (Normal) Range: 0-5 SP.GR. DIPSTX >=1.030 (Normal) Range: 1.002-1.030 SQUAM EPI SeeNote {/hpf} (Normal) Range: 5-10 Comments: Result: 0-5 SEEN UROBILI 0.2 EU/dl (Normal) Range: 0.2 - 1.0 WBC SeeNote {/hpf} (Normal) Range: 0-5 Comments: Result: 0-5 SEEN :00 AMIE 25 U/L (Normal) Comments: COMMENTS: [facility] 7 DR Webster*: NOT APPLICABLE Range: 25-115 :00 CBCD Comments: COMMENTS: [facility] 7 DR Webster*: NOT APPLICABLE BASO% 0.1 % (Normal) Range: 0-1 EO% 0.6 % (Normal) Range: 0-5 HCT 43.9 % (Normal) Range: 37-47 HGB 15.2 g/dL (Normal) Range: 12.0-16.0 LY% 18.9 % (Abnormal) Range: 19-41 MCH 31.2 pg (Normal) Range: 27.0-32.0 MCHC 34.6 g/dL (Normal) Range: 32-36 MCV 90.3 fL (Normal) Range: 81-99 MONO% 6.6 % (Normal) Range: 0-10 MPV 8.9 fL (Normal) Range: 6.5-12.0 NEUT% 73.8 % (Abnormal) Range: 47-70 PLT 226 K/mm3 (Normal) Range: 150-450 RBC 4.86 {M/mm3} (Normal) Range: 4.2-5.4 RDW 13.6 % (Normal) Range: 11.6-14.6 WBC 5.3 K/mm3 (Normal) Range: 4.4-11.0 [id number]:00 COMP METABOLIC Comments: COMMENTS: BED 7 DR FASTPrecautions*: NOT APPLICABLE A/G 1.1 {RATIO} (Normal) Range: 0.9-2.4 ALB 4.2 g/dL (Normal) Range: 3.4-5.0 ALK P 68 U/L (Normal) Range: 50-136 ALT 29 [iU]/L (Abnormal) Range: 30-65 AST 14 U/L (Abnormal) Range: 15-37 BUN 19 mg/dL (Abnormal) Range: 7-18 BUN/CRE 23.8 {RATIO} (Abnormal) Range: 10-20 CA 8.4 mg/dL (Abnormal) Range: 8.5-10.1 CL 103 mmol/L (Normal) Range: 98-107 CO2 24.8 mmol/L (Normal) Range: 22.0-29.0 CREAT,SERUM 0.8 mg/dL (Normal) Range: 0.6-1.0 GAP 13 (Normal) Range: 5-15 GLOB 3.8 g/dL (Abnormal) Range: 2.3-3.5 GLU 108 mg/dL (Normal) Range: 70-110 K 3.3 mmol/L (Abnormal) Range: 3.5-5.1 NA 141 mmol/L (Normal) Range: 136-145 T BILI 0.87 mg/dL (Normal) Range: 0.00-1.00 T PROT 8.0 g/dL (Normal) Range: 6.4-8.2 [id number]:00 D BILI 0.14 mg/dL (Normal) Comments: COMMENTS: BED 7 FASTPrecautions*: NOT APPLICABLE Range: 0.00-0.30 :00 LIPASE 141 U/L (Normal) Comments: COMMENTS: BED 7 FASTPrecautions*: NOT APPLICABLE Range: 114-286 :46 LIVER ALB 3.8 g/dL (Normal) Range: 3.4-5.0 ALK P 63 U/L (Normal) Range: 50-136 ALT 34 [iU]/L (Normal) Range: 30-65 AST 15 U/L (Normal) Range: 15-37 D BILI 0.08 mg/dL (Normal) Range: 0.00-0.30 T BILI 0.52 mg/dL (Normal) Range: 0.00-1.00 T PROT 6.9 g/dL (Normal) Range: 6.4-8.2 :46 PFLIP CHOL 176 mg/dL (Normal) Comments: <200 mg/dL Desirable 200-240 mg/dL Borderline >240 mg/dL High Risk HDL 33 mg/dL (Abnormal) Comments: Reference Range HDL <40 mg/dL Low HDL Cholesterol HDL >or= 60 mg/dL High HDL Cholesterol LDL 93 mg/dL (Normal) Range: 0-130 TRIG 250 mg/dL (Abnormal) Comments: Serum Triglycerides Reference Interval Normal <150 mg/dL Borderline high 150 - 199 mg/dL High 200 - 499 mg/dL Very High > or = 500 mg/dL VLDL 50 mg/dL (Abnormal) Range: 5-40 :02 URINALYSIS (81895) URINALYSIS Comments: uNABLE TO PUT RESULTS IN CORRECTLY- [id number] (Normal) :09 HgA1C , Office (84595) HgA1C , Office 5.4 % (Normal) Range: 4.6 - 7.1 :09 Blood Glucose , Office (60444) Blood Glucose , Office 161 (Normal) Plan of Care Name Dates Details Instructions Diabetes mellitus type 2, uncontrolled, without complications : Follow up in 3 months Indication: Diabetes mellitus type 2, uncontrolled, without complications Diabetes mellitus type 2, uncontrolled, without complications : Reviewed Lab Indication: Diabetes mellitus type 2, uncontrolled, without complications Hypertensive heart disease without heart failure : Reviewed Lab Indication: Hypertensive heart disease without heart failure Mixed hyperlipidemia : Cholesterol mgmt Indication: Mixed hyperlipidemia Hypertensive heart disease without heart failure : HTN/CAD Red Flags Indication: Hypertensive heart disease without heart failure Diabetes mellitus type 2, uncontrolled, without complications : Eprescribed prescriptions (G8553) Indication: Diabetes mellitus type 2, uncontrolled, without complications BMI 27.0-27.9,adult : Follow up if no improvement or if symptoms worsen Indication: BMI 27.0-27.9,adult BMI 27.0-27.9,adult : Eprescribed prescriptions (G8553) Indication: BMI 27.0-27.9,adult Diabetes mellitus type II, controlled, with no complications : Follow up in 3 months Indication: Diabetes mellitus type II, controlled, with no complications CAD in [place] artery : 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 Indication: CAD in [place] artery Mixed hyperlipidemia : Cholesterol mgmt Indication: Mixed hyperlipidemia Hypertensive heart disease without heart failure : HTN/CAD Red Flags Indication: Hypertensive heart disease without heart failure Diabetes mellitus type II, controlled, with no complications : Eprescribed prescriptions (G8553) Indication: Diabetes mellitus type II, controlled, with no complications Hypokalemia : Continue Current Prescription(s) Indication: Hypokalemia Mixed hyperlipidemia : Reviewed Lab Indication: Mixed hyperlipidemia Hyperglycemia : Reviewed Lab Indication: Hyperglycemia Macrocytosis : Continue Current Prescription(s)- B12 shots dinaly Indication: Macrocytosis CAD in [place] artery : 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 Indication: CAD in [place] artery CAD in [place] artery : Continue Current Prescription(s) Indication: CAD in [place] artery Diabetes mellitus type 2, uncontrolled, without complications : Follow up in 3 months- gen med Indication: Diabetes mellitus type 2, uncontrolled, without complications Hypertensive heart disease without heart failure : Follow up in 3 weeks- re bp Indication: Hypertensive heart disease without heart failure Mixed hyperlipidemia : Cholesterol mgmt Indication: Mixed hyperlipidemia Hypertensive heart disease without heart failure : BP MONITORING - SELF Indication: Hypertensive heart disease without heart failure Hypertensive heart disease without heart failure : Diet, Exercise, and Wt loss Indication: Hypertensive heart disease without heart failure Hypertensive heart disease without heart failure : HTN/CAD Red Flags Indication: Hypertensive heart disease without heart failure Cough : Follow up if no improvement or if symptoms worsen Indication: Cough Elevated blood pressure reading with diagnosis of hypertension : HTN and Decongestants Indication: Elevated blood pressure reading with diagnosis of hypertension BMI 25.0-25.9,adult : Eprescribed prescriptions (G8553) Indication: BMI 25.0-25.9,adult Nonsmoker : Follow up if no improvement or if symptoms worsen Indication: Nonsmoker Bronchitis : *URI Treatment Indication: Bronchitis Bronchitis : *URI Symptoms Indication: Bronchitis Bronchitis : *Antibiotic Usage Education - Female Indication: Bronchitis Post-viral cough syndrome : *URI Treatment Indication: Post-viral cough syndrome Post-viral cough syndrome : *URI Symptoms Indication: Post-viral cough syndrome Bronchitis : *Antibiotic Usage Education - Female Indication: Bronchitis BMI 25.0-25.9,adult : Eprescribed prescriptions (G8553) Indication: BMI 25.0-25.9,adult Cough : Follow up if no improvement or if symptoms worsen Indication: Cough Influenza A : Cough: influenza Indication: Influenza A Nonsmoker : Eprescribed prescriptions (G8553) Indication: Nonsmoker Flu-like symptoms : Eprescribed prescriptions (G8553) Indication: Flu-like symptoms Encounter for annual general medical examination with abnormal findings in adult : fall reduction handout Indication: Encounter for annual general medical examination with abnormal findings in adult Encounter for annual general medical examination with abnormal findings in adult : elderly packet given Indication: Encounter for annual general medical examination with abnormal findings in adult Encounter for annual general medical examination with abnormal findings in adult : advance planning information Indication: Encounter for annual general medical examination with abnormal findings in adult Encounter for annual general medical examination with abnormal findings in adult : *Weight Loss Discussion Indication: Encounter for annual general medical examination with abnormal findings in adult Encounter for screening for malignant neoplasm of colon (Renamed from Special screening for malignant neoplasms, colon) : *Colon Cancer Screening Indication: Encounter for screening for malignant neoplasm of colon (Renamed from Special screening for malignant neoplasms, colon) Pulmonary hypertension, moderate to severe : 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 Indication: Pulmonary hypertension, moderate to severe Hypertensive heart disease without heart failure : HTN/CAD Red Flags Indication: Hypertensive heart disease without heart failure Mixed hyperlipidemia : Cholesterol mgmt Indication: Mixed hyperlipidemia Diabetes mellitus type II, controlled, with no complications : Follow up in 3 months Indication: Diabetes mellitus type II, controlled, with no complications Hypomagnesemia : Reviewed Lab Indication: Hypomagnesemia S/P laminectomy with spinal fusion : Reviewed Lab Indication: S/P laminectomy with spinal fusion S/P laminectomy with spinal fusion : 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 Indication: S/P laminectomy with spinal fusion Macrocytosis without anemia : Reviewed Lab Indication: Macrocytosis without anemia Diabetes mellitus type II, controlled, with no complications : Reviewed Diagnostic Tests Indication: Diabetes mellitus type II, controlled, with no complications S/P laminectomy with spinal fusion : 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 Indication: S/P laminectomy with spinal fusion S/P laminectomy with spinal fusion : Follow up in 3 months Indication: S/P laminectomy with spinal fusion Nonsmoker : Follow up in 3 months Indication: Nonsmoker Puncture wound : Eprescribed prescriptions (G8553) Indication: Puncture wound BMI 28.0-28.9,adult : Follow up in 3 months Indication: BMI 28.0-28.9,adult Past myocardial infarction : Follow up in 3 months Indication: Past myocardial infarction Nonsmoker : Eprescribed prescriptions (G8553) Indication: Nonsmoker Hypertensive heart disease without heart failure : Continue Current Prescription(s) Indication: Hypertensive heart disease without heart failure CAP (community acquired pneumonia) : Reviewed Lab Indication: CAP (community acquired pneumonia) CAP (community acquired pneumonia) : Reviewed Diagnostic Tests Indication: CAP (community acquired pneumonia) CAP (community acquired pneumonia) : 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 Indication: CAP (community acquired pneumonia) Sinusitis, bacterial : Eprescribed prescriptions (G8553) Indication: Sinusitis, bacterial Pulmonary hypertension, moderate to severe : Reviewed Diagnostic Tests Indication: Pulmonary hypertension, moderate to severe Nonsmoker : Eprescribed prescriptions (G8553) Indication: Nonsmoker Bronchitis : Reviewed Diagnostic Tests Indication: Bronchitis Bronchitis : 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 Indication: Bronchitis Bronchitis : *Antibiotic Usage Education - Female Indication: Bronchitis Nonsmoker : Eprescribed prescriptions (G8553) Indication: Nonsmoker Flu-like symptoms : Follow up in 3 weeks Indication: Flu-like symptoms Hypokalemia : Eprescribed prescriptions (G8553) Indication: Hypokalemia Abrasion : Follow up in 1 week to 10 days Indication: Abrasion Diabetes mellitus type II, controlled, with no complications : Eprescribed prescriptions (G8553) Indication: Diabetes mellitus type II, controlled, with no complications Encounter for screening for malignant neoplasm of colon (Renamed from Special screening for malignant neoplasms, colon) : *Colon Cancer Screening Indication: Encounter for screening for malignant neoplasm of colon (Renamed from Special screening for malignant neoplasms, colon) Pulmonary embolism, bilateral : Eprescribed prescriptions (G8553) Indication: Pulmonary embolism, bilateral Chronic pain : Follow up in [address] Hahn Indication: Chronic pain Sweating abnormality : Eprescribed prescriptions (G8553) Indication: Sweating abnormality Hypokalemia (Renamed from Decreased potassium in the blood) : Hypokalemia education Indication: Hypokalemia (Renamed from Decreased potassium in the blood) Macrocytosis without anemia : Eprescribed prescriptions (G8553) Indication: Macrocytosis without anemia Screening for osteoporosis (Renamed from Encounter for screening for osteoporosis) : Follow up in 6 months Indication: Screening for osteoporosis (Renamed from Encounter for screening for osteoporosis) Mixed hyperlipidemia : Cholesterol mgmt Indication: Mixed hyperlipidemia Mixed hyperlipidemia : *Cholesterol - Medication Side Effects Indication: Mixed hyperlipidemia Screening for osteoporosis (Renamed from Encounter for screening for osteoporosis) : Eprescribed prescriptions (G8553) Indication: Screening for osteoporosis (Renamed from Encounter for screening for osteoporosis) Breast screening : Eprescribed prescriptions (G8553) Indication: Breast screening Anxiety : Anxiety: anxiety Indication: Anxiety Anxiety : Eprescribed prescriptions (G8553) Indication: Anxiety Diabetes mellitus type 2, uncontrolled, without complications : Eprescribed prescriptions (G8553) Indication: Diabetes mellitus type 2, uncontrolled, without complications Fatigue : Eprescribed prescriptions (G8553) Indication: Fatigue Diabetes mellitus type II, controlled, with no complications : Eprescribed prescriptions (G8553) Indication: Diabetes mellitus type II, controlled, with no complications Hypertensive heart disease without heart failure : Eprescribed prescriptions (G8553) Indication: Hypertensive heart disease without heart failure Diabetes mellitus type II, controlled, with no complications : Eprescribed prescriptions (G8553) Indication: Diabetes mellitus type II, controlled, with no complications Urinary tract infection, site not specified : Eprescribed prescriptions (G8553) Indication: Urinary tract infection, site not specified Diabetes mellitus type II, controlled, with no complications : Eprescribed prescriptions (G8553) Indication: Diabetes mellitus type II, controlled, with no complications Hypertension : Follow up if no improvement or if symptoms worsen Indication: Hypertension Thyroid Nodule : Eprescribed prescriptions (G8553) Indication: Thyroid Nodule Diabetes mellitus type II, controlled, with no complications : Eprescribed prescriptions (G8553) Indication: Diabetes mellitus type II, controlled, with no complications Acute pharyngitis : Follow up if no improvement or if symptoms worsen Indication: Acute pharyngitis Other specified viral infection, in conditions classified elsewhere and of unspecified site : *URI Symptoms Indication: Other specified viral infection, in conditions classified elsewhere and of unspecified site Other specified viral infection, in conditions classified elsewhere and of unspecified site : *URI Treatment Indication: Other specified viral infection, in conditions classified elsewhere and of unspecified site Acute pharyngitis : Sore throat: diagnosis and treatment Indication: Acute pharyngitis Mixed hyperlipidemia : Diet, Exercise, and Wt loss Indication: Mixed hyperlipidemia B12 deficiency anemia : Anemia: anemia Indication: B12 deficiency anemia Dysfunctional grieving : Continue Current Prescription(s) Indication: Dysfunctional grieving Epigastric pain : *Abd Pain Red Flags Indication: Epigastric pain Myalgia and myositis : Cholesterol mgmt Indication: Myalgia and myositis Mixed hyperlipidemia : Reviewed Lab Indication: Mixed hyperlipidemia Epigastric pain : Continue Current Prescription(s) Indication: Epigastric pain Dysphagia, unspecified dysphagia : Reviewed Diagnostic Tests Indication: Dysphagia, unspecified dysphagia Abdominal pain : Follow up in 3 weeks Indication: Abdominal pain Abdominal pain : Abdominal Pain: abdominal pain Indication: Abdominal pain Mixed hyperlipidemia : *Cholesterol - Medication Side Effects Indication: Mixed hyperlipidemia Cystitis, acute : follow up for recheck urine 1 week after complete antibiotic Indication: Cystitis, acute Diabetes mellitus type II, controlled, with no complications : Diabetes and Illness: diabetes and illness Indication: Diabetes mellitus type II, controlled, with no complications Dysfunctional grieving : Continue Current Prescription(s) Indication: Dysfunctional grieving Epigastric pain : Abdominal Pain: abdominal pain Indication: Epigastric pain Diabetes mellitus type II, controlled, with no complications : Diet, Exercise, and Wt loss Indication: Diabetes mellitus type II, controlled, with no complications Mixed hyperlipidemia : Diet, Exercise, and Wt loss Indication: Mixed hyperlipidemia Mixed hyperlipidemia : Diet, Exercise, and Wt loss Indication: Mixed hyperlipidemia Diabetes mellitus type II, controlled, with no complications : Diet, Exercise, and Wt loss Indication: Diabetes mellitus type II, controlled, with no complications EDEMA, NOS : FOLLOW UP IN 3 DAYS with [facility] Indication: EDEMA, NOS Benign paroxysmal positional vertigo : 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 Indication: Benign paroxysmal positional vertigo Acute sinusitis, unspecified : *URI Treatment Indication: Acute sinusitis, unspecified Acute sinusitis, unspecified : *Antibiotic Usage Education - Female Indication: Acute sinusitis, unspecified Benign paroxysmal positional vertigo : Continue Current Prescription(s) Indication: Benign paroxysmal positional vertigo Dysthymic disorder : *Antidepressant Usage Indication: Dysthymic disorder Other and unspecified diseases of the oral soft tissues : FOLLOW UP NEEDED Indication: Other and unspecified diseases of the oral soft tissues Allergic rhinitis due to other allergen : ALLERGY PROOFING Indication: Allergic rhinitis due to other allergen Allergic rhinitis due to other allergen : ALLERGY CONTROL Indication: Allergic rhinitis due to other allergen Allergic rhinitis due to other allergen : *URI Symptoms Indication: Allergic rhinitis due to other allergen Mixed hyperlipidemia : Diet, Exercise, and Wt loss Indication: Mixed hyperlipidemia Mixed hyperlipidemia : Cholesterol - Medication Side Effects Indication: Mixed hyperlipidemia Mixed hyperlipidemia : Cholesterol - Medication Side Effects Indication: Mixed hyperlipidemia Mixed hyperlipidemia : Diet and Exercise Indication: Mixed hyperlipidemia Hypertensive heart disease without heart failure : BP MONITORING - SELF Indication: Hypertensive heart disease without heart failure Hypertensive heart disease without heart failure : HTN and Decongestants Indication: Hypertensive heart disease without heart failure Acute sinusitis, unspecified : *URI Treatment Indication: Acute sinusitis, unspecified Acute sinusitis, unspecified : Antibiotic Usage Education - Female Indication: Acute sinusitis, unspecified Acute sinusitis, unspecified : URI Symptoms Indication: Acute sinusitis, unspecified Dysthymic disorder : Antidepressant Usage Indication: Dysthymic disorder Mixed hyperlipidemia : Cholesterol - Medication Side Effects Indication: Mixed hyperlipidemia Insomnia, unspecified : Insomnia Education Indication: Insomnia, unspecified Insomnia, unspecified : Sleep Hygiene Education Indication: Insomnia, unspecified radiculopathy : FOLLOW UP IN 3 MONTHS Indication: radiculopathy Mixed hyperlipidemia : FOLLOW UP IN 3 MONTHS Indication: Mixed hyperlipidemia Mixed hyperlipidemia : FOLLOW UP IN 2 MONTHS Indication: Mixed hyperlipidemia Planned Observations TSH ([id number])Indication: Diabetes mellitus type 2, uncontrolled, without complications On: :42 Request URINALYSIS, W/ MICRO ([id number])Indication: Diabetes mellitus type 2, uncontrolled, without complications On: :42 Request MICROALBUMIN: CREATININE RATIO ([id number]) AND (43566)Indication: Diabetes mellitus type 2, uncontrolled, without complications On: :42 Request METABOLIC PANEL, COMPREHENSIVE ([id number])Indication: Hypertensive heart disease without heart failure On: 1-Oap-341015:42 Request LIPID PANEL (32503)Indication: Mixed hyperlipidemia On: :42 Request CBC W/AUTO DIFF WBC ([id number])Indication: Hypertensive heart disease without heart failure On: 1-Cqa-888598:42 Request LIPID PANEL (49782)Indication: Diabetes mellitus type 2, uncontrolled, without complications On: 8-Ano-378599:25 Request CBC WITH MANUAL DIFF ([id number])Indication: Elevated platelet count On: 11-Aug-20178:11 Request LIPASE ([id number])Indication: Flu-like symptoms On: 0-Iel-308112:53 Request Comments: stat POTASSIUM SERUM (77904)Indication: Hypokalemia On: :40 Request MAGNESIUM ([id number])Indication: Hypomagnesemia On: 40-Tnr-025033:40 Request Renal function Panel (79792)Indication: Hypokalemia On: 32-Wjz-579103:48 Request POTASSIUM SERUM (43407)Indication: Hypokalemia (Renamed from Decreased potassium in the blood) On: 03-Nov-20169:06 Request POTASSIUM SERUM (47345)Indication: Hypokalemia (Renamed from Decreased potassium in the blood) On: 57-Cbn-956319:55 Request POTASSIUM SERUM (04735)Indication: Hypokalemia On: 0-Mmu-900973:22 Request MAGNESIUM (12558)Indication: Hypokalemia On: 3-Thq-294194:21 Request URINE HANSA CULTURE-JEWELS COL COUNT (34623)Indication: UTI (urinary tract infection), bacterial On: :54 Request MAGNESIUM (54867)Indication: Abdominal pain On: 13-Uwb-765440:45 Request Comments: do in 3 weeks CALCIFEDIOL (35081)Indication: Vitamin D deficiency On: :14 Request LIPID PANEL (43499)Indication: Mixed hyperlipidemia On: :13 Request VITAMIN B12 AND FOLATES (29189)Indication: B12 deficiency anemia On: :13 Request TSH (THYROID STIMULATING HORMONE) (10908)Indication: Thyroid Nodule On: :13 Request METABOLIC PANEL, COMPREHENSIVE (55883)Indication: Mixed hyperlipidemia On: :13 Request CBC WITH MANUAL DIFF ([id number])Indication: Hypertensive heart disease without heart failure On: 46-Ipo-051403:13 Request MICROALBUMIN: CREATININE RATIO (63106) AND (60656)Indication: Hypertensive heart disease without heart failure On: 04-Tcn-031564:13 Request MYOGLOBIN (15317)Indication: Sweating abnormality On: 09-Dbl-185545:11 Request CPK MB FRACTION (16153)Indication: Sweating abnormality On: 09-Zia-803194:11 Request ASSAY, TROPONIN, QUANTITATIVE (aka Troponin I) (19342)Indication: Sweating abnormality On: 28-Xcl-390125:11 Request METABOLIC PANEL, BASIC (77923)Indication: Hypokalemia (Renamed from Decreased potassium in the blood) On: 36-Iiq-065346:16 Request PARATHORMONE (96193)Indication: Hypocalcemia On: 87-Ngz-794294:23 Request Magnesium (53984)Indication: Hypokalemia (Renamed from Decreased potassium in the blood) On: 75-Ych-499338:22 Request CALCIUM, IONIZED (67210)Indication: Hypocalcemia On: 76-Pze-180655:21 Request VITAMIN B12 AND FOLATES (99036)Indication: Macrocytosis without anemia On: 62-Zrk-217975:39 Request SMEAR+INTERP FLUOR STAIN (38674)Indication: Macrocytosis without anemia On: 03-Irc-036539:37 Request MICROALBUMIN: CREATININE RATIO (41078) AND (91401)Indication: Hypertensive heart disease without heart failure On: 23-Nxf-647863:16 Request CBC W/AUTO DIFF WBC (26966)Indication: Hypertensive heart disease without heart failure On: 20-Sbn-518409:16 Request METABOLIC PANEL, COMPREHENSIVE (74623)Indication: Hypertensive heart disease without heart failure On: 94-Lhq-050267:16 Request LIPID PANEL (54363)Indication: Mixed hyperlipidemia On: 83-Nni-959208:16 Request Vitamin D Hydroxy (49019)Indication: Vitamin D deficiency On: 58-Rqg-360199:15 Request VITAMIN B-12 (CYANOCOBALAMIN) (38087)Indication: B12 deficiency anemia On: 48-Bri-384263:15 Request METABOLIC PANEL, COMPREHENSIVE (81709)Indication: Fatigue On: :07 Request LIPID PANEL (06849)Indication: Mixed hyperlipidemia On: :07 Request VITAMIN B-12 (CYANOCOBALAMIN) (19059)Indication: B12 deficiency anemia On: :07 Request CBC (AUTO) ([id number])Indication: B12 deficiency anemia On: :07 Request Vitamin D Hydroxy (81230)Indication: Vitamin D deficiency On: :06 Request HgA1C , Office (48334)Indication: Diabetes mellitus type II, controlled, with no complications On: :55 Request CBC, PLATELETS & MANUAL DIFF (29566)Indication: Hypokalemia (Renamed from Decreased potassium in the blood) On: :08 Request Comments: recheck before 11-07-14 MICROALBUMIN: CREATININE RATIO (98342) AND (56056)Indication: Proteinuria On: :49 Request VITAMIN B-12 (CYANOCOBALAMIN) (59246)Indication: B12 deficiency anemia On: :56 Request Vitamin D Hydroxy (47976)Indication: Vitamin D deficiency On: :56 Request CBC WITH MANUAL DIFF (94336)Indication: B12 deficiency anemia On: :55 Request METABOLIC PANEL, COMPREHENSIVE (83271)Indication: Hypertensive heart disease without heart failure On: :55 Request LIPID PANEL (99406)Indication: Mixed hyperlipidemia On: :55 Request LIPID PANEL (53837)Indication: Mixed hyperlipidemia On: :31 Request TSH (51345)Indication: Thyroid Nodule On: :31 Request MICROALBUMIN: CREATININE RATIO (27299) AND (37944)Indication: Diabetes mellitus type II, controlled, with no complications On: :31 Request METABOLIC PANEL, COMPREHENSIVE (37439)Indication: Diabetes mellitus type II, controlled, with no complications On: :31 Request URINALYSIS, W/ MICRO (80915)Indication: Proteinuria On: :30 Request Vitamin D Hydroxy (48871)Indication: Vitamin D deficiency On: 04-Jun-20138:30 Request CBC, PLATELETS & AUT DIFF ([id number])Indication: B12 deficiency anemia On: :29 Request VITAMIN B-12 (CYANOCOBALAMIN) (54473)Indication: B12 deficiency anemia On: :29 Request HgA1C , Office (19618)Indication: Diabetes mellitus type II, controlled, with no complications On: :03 Request TSH (60049)Indication: Thyroid Nodule On: :39 Request LIPID PANEL (63769)Indication: Mixed hyperlipidemia On: :38 Request CBC WITH MANUAL DIFF (81787)Indication: Diabetes mellitus type II, controlled, with no complications On: :38 Request METABOLIC PANEL, COMPREHENSIVE (26684)Indication: Diabetes mellitus type II, controlled, with no complications On: :38 Request Vitamin D Hydroxy (08514)Indication: Vitamin D deficiency On: :22 Request CBC, PLATELETS & AUT DIFF ([id number])Indication: B12 deficiency anemia On: 40-Ydq-59734:22 Request VITAMIN B-12 (CYANOCOBALAMIN) ([id number])Indication: B12 deficiency anemia On: :22 Request CBC WITH MANUAL DIFF ([id number])Indication: Diabetes mellitus type II, controlled, with no complications On: :12 Request METABOLIC PANEL, COMPREHENSIVE (59381)Indication: Diabetes mellitus type II, controlled, with no complications On: 52-Arn-87824:12 Request HEPATIC FUNCTION PANEL (80587)Indication: Mixed hyperlipidemia On: 87-Shu-12282:10 Request LIPID PANEL (42252)Indication: Mixed hyperlipidemia On: 08-Oou-96212:10 Request VITAMIN B-12 (CYANOCOBALAMIN) (14966)Indication: B12 deficiency anemia On: :02 Request TSH ([id number])Indication: Dysthymic disorder On: 34-Gdi-661075:17 Request CREATININE CLEARANCE (26803)Indication: Proteinuria On: 73-Wfp-697813:15 Request 24 hour urine for Protein (63425)Indication: Proteinuria On: 40-Oog-224544:15 Request VITAMIN B-12 (CYANOCOBALAMIN) (46971)Indication: B12 deficiency anemia On: 73-Pat-138707:15 Request CCP ANTIBODY ([id number])Indication: Pain in unspecified joint On: 07-Nov-20119:47 Request LIPID PANEL (45395)Indication: Mixed hyperlipidemia On: 61-Vzc-581803:45 Request OVA & PARASITE DIR SMEAR (80035)Indication: Diarrhea On: :52 Request LEUKOCYTE COUNT, FECAL (72903)Indication: Diarrhea On: :52 Request Clostridium difficile Toxin A+B, EIA (64564)Indication: Diarrhea On: :52 Request HANSA CULTURE-STOOL ([id number])Indication: Diarrhea On: :52 Request CBC WITH MANUAL DIFF ([id number])Indication: Hypertensive heart disease without heart failure On: 23-Cmq-420334:11 Request METABOLIC PANEL, COMPREHENSIVE (25114)Indication: Hypertensive heart disease without heart failure On: 99-Xbj-555250:11 Request LIPID PANEL (77975)Indication: Mixed hyperlipidemia On: 46-Vya-111454:11 Request Influenza B Ag (49409)Indication: Myalgia and myositis On: :06 Request Influenza A Ag (89719)Indication: Myalgia and myositis On: :06 Request METABOLIC PANEL, COMPREHENSIVE (10848)Indication: Uncomplicated herpes simplex On: 51-Xoh-520459:13 Request MICROALBUMIN: CREATININE RATIO (07636) AND (75187)Indication: Abnormal glucose tolerance test On: :32 Request METABOLIC PANEL, COMPREHENSIVE (49895)Indication: Hypertensive heart disease without heart failure On: :32 Request HEPATIC FUNCTION PANEL (27137)Indication: Mixed hyperlipidemia On: :31 Request LIPID PANEL (77728)Indication: Mixed hyperlipidemia On: :31 Request TSH ([id number])Indication: Abnormal glucose tolerance test On: :19 Request LIPID PANEL (67747)Indication: Mixed hyperlipidemia On: :15 Request HEPATIC FUNCTION PANEL (70999)Indication: Mixed hyperlipidemia On: :15 Request METABOLIC PANEL, COMPREHENSIVE (49016)Indication: Hypertensive heart disease without heart failure On: :56 Request HEPATIC FUNCTION PANEL (42072)Indication: Mixed hyperlipidemia On: :56 Request LIPID PANEL (53911)Indication: Mixed hyperlipidemia On: :56 Request MICROALBUMIN: CREATININE RATIO (23756) AND (67478)Indication: Abnormal glucose tolerance test On: :30 Request CBC WITH MANUAL DIFF (04723)Indication: Abnormal glucose tolerance test On: :30 Request VITAMIN B-12 (CYANOCOBALAMIN) (55849)Indication: Tinnitus, unspecified laterality On: :24 Request METABOLIC PANEL, COMPREHENSIVE (30178)Indication: Hypertensive heart disease without heart failure On: :24 Request LIPID PANEL (35925)Indication: Mixed hyperlipidemia On: :24 Request URINALYSIS W/O MICRO (73085)Indication: Hypertensive heart disease without heart failure On: :12 Request TSH ([id number])Indication: Hypertensive heart disease without heart failure On: :12 Request CBC WITH MANUAL DIFF (16861)Indication: Hypertensive heart disease without heart failure On: :12 Request METABOLIC PANEL, COMPREHENSIVE (96261)Indication: Hypertensive heart disease without heart failure On: :12 Request LIPID PANEL (84311)Indication: Mixed hyperlipidemia On: :12 Request CBC with manual diff (54201)Indication: Pre-operative examination On: :30 Request Metabolic Panel, Comprehensive ([id number])Indication: Pre-operative examination On: 23-Ejq-141781:30 Request Urinalysis, Office (05577)Indication: Pre-operative examination On: 84-Qwt-388618:29 Request Lipid Panel (78776)Indication: Mixed hyperlipidemia On: :52 Request Comments: in three months (approximately) TSH (27506)Indication: Hypertensive heart disease without heart failure On: :52 Request MICROALBUMIN URINE QUANT (94909)Indication: Hypertensive heart disease without heart failure On: :52 Request METABOLIC PANEL, COMPREHENSIVE (59385)Indication: Hypertensive heart disease without heart failure On: :52 Request CBC WITH MANUAL DIFF ([id number])Indication: Hypertensive heart disease without heart failure On: :52 Request HEPATIC FUNCTION PANEL (88663)Indication: Mixed hyperlipidemia On: :52 Request LIPID PANEL (12741)Indication: Mixed hyperlipidemia On: :52 Request HEPATIC FUNCTION PANEL (39013)Indication: Mixed hyperlipidemia On: :54 Request LIPID PANEL (17792)Indication: Mixed hyperlipidemia On: :54 Request TSH (43533)Indication: pruritis On: :37 Request METABOLIC PANEL, COMPREHENSIVE (69966)Indication: pruritis On: :37 Request CBC WITH MANUAL DIFF ([id number])Indication: pruritis On: :37 Request LIPID PANEL (15526)Indication: Mixed hyperlipidemia On: :18 Request HEPATIC FUNCTION PANEL ([id number])Indication: Mixed hyperlipidemia On: :18 Request HEPATIC FUNCTION PANEL (29519)Indication: Mixed hyperlipidemia On: 4-Lhk-025888:14 Request LIPID PANEL ([id number])Indication: Mixed hyperlipidemia On: 0-Ehp-395806:14 Request Comments: 2mos Planned Encounters Medical; 3 Month FU - On: 24-Aug-2018 7:00 [facility] Margarita Drake DO, DO, Kathleen Planned Procedures ELECTROCARDIOGRAM, COMPLETE (ECG) On: 23-May-2018 Intent (68327)By: Margarita Drake DO Comments: sinus favio no acute chg Margarita GALARZA B 12 Injection, 1000 mcg (J3420)By: On: 23-May-2018 Intent Margarita Drake DO, DO, Comments: b12 1,000mcg/ml 1ml given L deltoid lot#[id number] exp: jg Margarita B 12 Injection, 1000 mcg (J3420)By: On: 26-Mar-2018 Intent Marlyn Roberts LPN Comments: [id number] dltdIMas DIRECTOR OF PATIENT CARE B 12 Injection, 1000 mcg (J3420)By: On: 19-Feb-2018 Intent Margarita Drake DO, DO, Comments: vitamin b12 1000mcg injectionlot: [id number]: 06/2019L DELT IMpt tolerated well Margarita B 12 Injection, 1000 mcg (J3420)By: On: 07-Dec-2017 Intent Sanjay GALARZA Margarita Drake , Comments: 1 ml given lt arm lot [id number] exp 01/20 Margarita B 12 Injection, 1000 mcg (J3420)By: On: 10-Nov-2017 Intent Margarita Drake DO, DO, Margarita CHEST XRAY, PA & LATERAL ([id number])By: On: 26-Sep-2017 Intent Allyn Manley Aerosol Treatment ([id number])By: Khanh On: 13-Sep-2017 Intent Ann Marie MCDANIEL Aerosol Treatment (25147)By: Vineet, On: 07-Sep-2017 Intent Allyn Comments: Lungs clear after aerosol treatment. B 12 Injection, 1000 mcg (J3420)By: On: 15-Aug-2017 Intent Margarita Darke DO, DO, Comments: vitamin b12 1000mcg injectionlot: [id number]: 10/2018L DELT IMpt tolerated wellAD DIRECTOR OF PATIENT CARE Margarita INFUSION, NORMAL SALINE SOLUTION , On: 10-Aug-2017 Intent 1000 CC (Special Coverage Instructions Apply. See MCM: 2048) (J7030)By: Libby Mai DO Toradol Injection, 30 mg (J1885)By: On: 09-Aug-2017 Intent Libby Mai DO Comments: toradol 30mg IV push -per dr. mailot: [id number]: 11/2017IV push in 23g in R ACpt tolerated well. AD DIRECTOR OF PATIENT CARE INFUSION, NORMAL SALINE SOLUTION , On: 09-Aug-2017 Intent 1000 CC (Special Coverage Comments: 23g inserted to R AC per first attemptpt tolerated [id number] infusing Instructions Apply. See MCM: 2048) (J7030)By: Stefanie Ghosh XR RIB AND CHEST LEFT ([id number])By: Sergei On: 09-Aug-2017 Libby Zavala DO Comments: stat call wet read fall with left anterior inferior rib pain/sob B 12 Injection, 1000 mcg (J3420)By: On: 03-Aug-2017 Intent Visit, Nurse Comments: given - see flowsheet Dose-prefilled syringeRIGHT DLTD, IMgiven by:CIARA JarrellLocoVIS signed B 12 Injection, 1000 mcg (J3420)By: On: 01-Aug-2017 Intent Margarita Drake DO, DO, Comments: vitamin b12 1000mcg injectionlot: [id number]: 10/2018L DELT IMpt tolerated wellAD DIRECTOR OF PATIENT CARE Margarita B 12 Injection, 1000 mcg (J3420)By: On: 26-Jul-2017 Intent Margarita Drake DO, DO, Comments: vitamin b12 1000mcg injectionlot: [id number]: 10/2018L DELT IMpt tolerated wellAD DIRECTOR OF PATIENT CARE Margarita INTENSIVE BEHAVIORAL THERAPY TO On: 25-Jul-2017 Intent REDUCE CARDIOVASCULAR DISEASE RISK, INDIVIDUAL, [id number], ANNUAL, 15 MINUTES (G0446)By: Margarita Drake DO, DO, Kathleen SCREENING DIGITAL TOMOSYNTHESIS OF On: 25-Jul-2017 Intent BREAST ([id number])By: Margarita Drake DO, DO Margarita B 12 Injection, 1000 mcg (J3420)By: On: 25-Jul-2017 Intent Margairta Drake DO, DO, Comments: vitamin b12 1000mcg injectionlot: [id number]: 10/2018L DELT IMpt tolerated wellAD DIRECTOR OF PATIENT CARE Margarita Rocephon Injection, 1 Gm ([id number])By: On: 13-Mar-2017 Intent Libby Mai DO Radiology - Finger(s) - RightBy: Sergei On: 13-Mar-2017 Libby Zavala DO Comments: second finger rule out osteo Aerosol Treatment (03323)By: Sanjay On: 23-Sep-2016 Margarita Zavala DO, DO, Kathleen Comments: albulterol .83%more a/e but more noise- inspir and expir wheeze and junky Bone Density StudyBy: Davian Mccray MD On: 12-Nov-2015 Intent MAMMOGRAM, SCREENING, BOTH BREAST On: 12-Nov-2015 Intent ([id number])By: Davian Mccray MD CT - Chest (Without Contrast)By: Shazia On: 05-Nov-2015 Intent Davian ARAGON Comments: low dose DEXA SCAN AXIAL SKELETON ([id number])By: On: 29-Oct-2015 Intent Davian Mccray MD Ultrasound - ThyroidBy: Shazia ARAGON, On: 29-Oct-2015 Intent Davian BILATERAL MAMMOGRAMS (87961)By: Shazia On: 29-Oct-2015 Intent Davian ARAGON B 12 Injection, 1000 mcg (J3420)By: On: 06-Feb-2015 Intent Fast DO, Libby A B 12 Injection, 1000 mcg (J3420)By: On: 02-Jan-2015 Intent Fast DO, Libby A Comments: lot [id number] exp 11/2015location L armroute imgiven by - msmith VIS and/or ABN signed CT - ChestBy: Sergei DO Libby A On: 07-Nov-2014 Intent MAMMOGRAM, SCREENING, BOTH BREAST On: 07-Nov-2014 Intent ([id number])By: Fast DO, Libby A B 12 Injection, 1000 mcg (J3420)By: On: 07-Nov-2014 Intent Fast DO Libby A Comments: lot: [id number]: 06/19Dose: 1,000 mcgSite: l dltdLocation; IMby: B 12 Injection, 1000 mcg (J3420)By: On: 08-Oct-2014 Intent Fast DO, Libby A Comments: Lot:[id number]:05/20Dose:1mlRoute:IMSite:l armGiven By:RAMÓN signed BILATERAL MAMMOGRAMS (52217)By: Sergei On: 08-Aug-2014 Intent DO Libby A INJECTION, VITAMIN B-12 On: 23-Jun-2014 Intent CYANOCOBALAMIN, UP TO 1000 MCG Comments: lot [id number] 03/19location L armroute imgiven by - msmithVIS and/or ABN signed (Special Coverage Instructions Apply. See CIM: 45-4 and MCM: 2049) (J3420)By: Ann Marie Cassidy CNP B 12 Injection, 1000 mcg (J3420)By: On: 23-May-2014 Intent Fast DO, Libby A Comments: lot: [id number]: 05/18site/route: L del/IMamt: 1mLVIS signed when applicableRADHA Marte Radiology - Knee - Right - Weight On: 23-May-2014 Intent BearingBy: Fast DO, Libby A Comments: stat call results Radiology - Hip - RightBy: Fast DO, On: 23-May-2014 Intent Libby A Comments: weight bearing stat-call rsults Ultrasound - ThyroidBy: Sergei DO, On: 21-Mar-[address] - ChestBy: Fast DO, Libby A On: 21-Mar-2014 Intent HERMANN (Ankle Brachial Index) ([id number])By: On: 10-Feb-2014 Intent Fast DO, Libby A B 12 Injection, 1000 mcg (J3420)By: On: 11-Dec-2013 Intent Fast DO, Libby A Comments: Edgar dltd, [id number] flowsheetMegan CT - ChestBy: Fast DO, Libby A On: 11-Dec-2013 Intent Eprescribed prescriptions (G8553)By: On: 11-Dec-2013 Intent Fast DO, Libby A B 12 Injection, 1000 mcg (J3420)By: On: 30-Oct-2013 Intent Fast DO Libby A Comments: lot: [id number]: 07/19site/route: L del/IMamt: 1mLVIS signed when applicableChelsea, INFORMATION SECURITY ENGINEER Eprescribed prescriptions (G8553)By: On: 09-Sep-2013 Intent Rachel Leyva ELECTROCARDIOGRAM, COMPLETE (ECG) On: 27-Aug-2013 Intent ([id number])By: Ann Marie Cassidy CNP SPECIMEN HNDLNG/TRNSPRT, OFFC > LAB On: 18-Jun-2013 Intent ([id number])By: Ann Marie Cassidy CNP MAMMOGRAM, SCREENING, BOTH BREASTS On: 04-Jun-2013 Intent ([id number])By: Fast DO Libby A DXA, BONE DENSITY, AXIAL SKELETON On: 04-Jun-2013 Intent ([id number])By: Fast DO Libby A CT - ChestBy: Fast DO Libby A On: 04-Jun-2013 Intent B 12 Injection, 1000 mcg (J3420)By: On: 20-May-2013 Intent Yolette Allison LPN Comments: Lot: [id number]: Apr 17Amt: 1mlRoute: IMSite: L deltoidGiven by: ANGEL Merlos B 12 Injection, 1000 mcg (J3420)By: On: 12-Mar-2013 Intent Fast DO, Libby A Comments: Lot #:[id number] date: mount given: 1mlRoute: IMSite given: left deltoidGiven by: KADY Rehman MAMMOGRAM, SCREENING, BOTH BREASTS On: 01-Feb-2013 Intent ([id number])By: Fast DO, Libby A Comments: end april CT - ChestBy: Fast DO, Libby A On: 01-Feb-2013 Intent Comments: march or april B 12 Injection, 1000 mcg (J3420)By: On: 01-Feb-2013 Intent Fast DO, Libby A Eprescribed prescriptions ([id number])By: On: 01-Feb-2013 Intent Rachel Leyva B 12 Injection, 1000 mcg (J3420)By: On: 30-Oct-2012 Intent Rachel Leyva Comments: Lot:Exp:08/17Lot:[id number]:1mlRoute:imSite:L deltoidGiven by:BMY DXA, BONE DENSITY, AXIAL SKELETON On: 30-Oct-2012 Intent ([id number])By: Fast DO Libby A Eprescribed prescriptions ([id number])By: On: 30-Oct-2012 Intent Rachel Leyva Nuclear Medicine - ThyroidBy: Sanjay On: 24-Sep-2012 Intent DO, Margarita Sanjay DO, Margarita Esophagram with 13 mmm tabletBy: On: 06-Sep-2012 Intent Sanjay DO, Margarita Sanjay DO, Margarita Eprescribed prescriptions ([id number])By: On: 06-Sep-2012 Intent Allyn Prajapati LPN B 12 Injection, 1000 mcg ([id number])By: On: 30-Jul-2012 Intent Fast DO, Libby A Comments: Lot #:[id number] date: mount given: 1mlRoute: IMSite given: left deltoidGiven by: KADY Rehman CT - ChestBy: Fast DO, Libby A On: 30-Jul-2012 Intent Ultrasound - ThyroidBy: Fast DO, On: 30-Jul-2012 Intent Libby A Eprescribed prescriptions ([id number])By: On: 30-Jul-2012 Intent Rachel Leyva Eprescribed prescriptions ([id number])By: On: 05-Jul-2012 Intent Alo Allyn ORTIZ MAMMOGRAM, SCREENING, BOTH BREASTS On: 23-Apr-2012 Intent ([id number])By: Libby Mai DO CT - Chest (IV Contrast Needed)By: On: 21-Nov-2011 Intent Libby Mai DO Comments: thi is a follow up CT for abnormal ct chest in april 2011 TDAP VACCINE >7 IM ([id number])By: On: 25-Jul-2011 Intent Rachel Leyva Comments: Lot:[id number]:07/21/13Amt:prefilledRoute:IMSite:left deltGiven By: ANGEL Anthony CT - Abdomen & PelvisBy: Sergei GALARZA, On: 25-Jul-2011 Intent Libby Ballard Comments: stat call wet read FLU VAC, SPLIT, >3 YEARS, INTRAMUSC On: 25-Jul-2011 Intent ([id number])By: Rachel Leyva Comments: pt refuses CT - ChestBy: Libby Mai DO On: 20-Apr-2011 Intent Comments: pe protocol Ultrasound - ThyroidBy: Sergei GALARZA, On: 04-Apr-2011 Intent Libby Ballard Comments: to be done in 6 months Spirometry ([id number])By: Libby Mai DO On: 16-Mar-2011 Intent A Comments: good effort and curve normal Pulse Oximetry ([id number])By: Sergei GALARZA, On: 16-Mar-2011 Intent Libby Ballard Comments: 97% EKG ([id number])By: Libby Mai DO On: 16-Mar-2011 Intent Comments: ekg showed normal sinus rhythym, normal axis, no acute st/t wave changes poor rwave no change Radiology - Chest- PA and LatBy: Sergei On: 16-Mar-2011 Intent Libby GALARZA Ultrasound - ThyroidBy: Sergei GALARZA, On: 16-Mar-[address] - NeckBy: Libby Mai DO On: 17-Jan-2011 Intent Comments: soft tissue- mass right posterior cervical MAMMOGRAM, SCREENING, BOTH BREASTS On: 17-Jan-2011 Intent ([id number])By: Libby Mai DO Pulse Oximetry ([id number])By: Khanh MCDANIEL, On: 14-Jun-2010 Intent Reema Aerosol Treatment ([id number])By: Khanh On: 14-Jun-2010 Intent Ann Marie MCDANIEL DXA, BONE DENSITY, AXIAL SKELETON On: 23-Dec-2009 Intent ([id number])By: Libby Mai DO MAMMOGRAM, SCREENING, BOTH BREASTS On: 23-Dec-2009 Intent ([id number])By: Libby Mai DO EKG ([id number])By: Rachel Leyva On: 23-Dec-2009 Intent Comments: ekg- 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 no change normal axis MAMMOGRAM, SCREENING, BOTH BREASTS On: 25-Nov-2008 Intent ([id number])By: Libby Mai DO EKG ([id number])By: Libby Mai DO On: 25-Nov-2008 Intent Comments: ekg showed normal sinus with no lateral t wave inversioon and poor rwave progression- twave inversion anteriolry unchanged Spirometry ([id number])By: Libby Mai DO On: 25-Nov-2008 Intent A Radiology - Chest- PA and LatBy: Sergei On: 25-Nov-2008 Intent Libby GALARZA Pulse Oximetry ([id number])By: Sergei GALARZA, On: 25-Nov-2008 Intent Libby A Bio Z ([id number])By: Libby Mai DO On: 14-May-2008 Intent Comments: high svr and normal cardiac output and thoracic fluid content- change to lotrel Radiology - ChestBy: Ann Marie Cassidy CNP On: 30-Jan-2008 Intent E EKGBy: Ivonnenellie Ann Marie MCDANIEL On: 30-Jan-2008 Intent Venous Doppler - LeftBy: Sergei GALARZA, On: 16-Oct-2007 Intent Libby Ballard Comments: stat - call wet read Radiology - Tib-Fib - LeftBy: Hazel On: 05-Sep-2007 Intent Tea ARAGON Comments: and femur left leg Venous Doppler - LeftBy: Hazel ARAGON, On: 05-Sep-2007 Intent Tea Cartwright Comments: leg Breast Screening - BilateralBy: Sergei On: 09-Oct-2006 Intent Libby GALARZA Bio Z ([id number])By: Libby Mai DO On: 09-Oct-2006 Intent Comments: high svr and low normal cardiac output- so will add in norvasc Planned Medications INFUSION, NORMAL SALINE SOLUTION , 1000 CC Ordered: 10-Aug-2017 Pending Fast DO, Libby A INFUSION, NORMAL SALINE SOLUTION , 1000 CC Ordered: 09-Aug-2017 Pending Stefanie Ghosh INJECTION, CEFTRIAXONE SODIUM, PER 250 MG Ordered: 13-Mar-2017 Pending Fast DO, Libby A INJECTION, KETOROLAC TROMETHAMINE, PER 15 MG Ordered: 09-Aug-2017 Pending Fast DO, Libby A Vitamin B-12 1000 MCG/ML Injection Solution Ordered: 19-Feb-2018 Pending Sanjay DO, Margarita Sanjay DO, Margarita Vitamin B-12 1000 MCG/ML Injection Solution Ordered: 07-Dec-2017 Pending Sanjay DO, Margarita Sanjay DO, Margarita Vitamin B-12 1000 MCG/ML Injection Solution Ordered: 10-Nov-2017 Pending Sanjay DO, Margarita Sanjay DO, Margarita Vitamin B-12 1000 MCG/ML Injection Solution Ordered: 15-Aug-2017 Pending Sanjay DO, Margarita Sanjay DO, Margarita Vitamin B-12 1000 MCG/ML Injection Solution Ordered: 03-Aug-2017 Pending Eleni, Nurse Vitamin B-12 1000 MCG/ML Injection Solution Ordered: 01-Aug-2017 Pending Sanjay DO, Margarita Sanjay DO, Margarita Vitamin B-12 1000 MCG/ML Injection Solution Ordered: 26-Jul-2017 Pending Sanjay DO, Margarita Sanjay DO, Margarita Vitamin B-12 1000 MCG/ML Injection Solution Ordered: 25-Jul-2017 Pending Sanjay DO, Margarita Sanjay DO, Margarita Vitamin B-12 1000 MCG/ML Injection Solution Ordered: 26-Mar-2018 Pending Marlyn Roberts LPN Vitamin B-12 1000 MCG/ML Injection Solution Ordered: 30-Jul-2012 Pending Fast DO, Libby A Vitamin B-12 1000 MCG/ML Injection Solution Ordered: 02-Jan-2015 Pending Fast DO, Libby A Vitamin B-12 1000 MCG/ML Injection Solution Ordered: 07-Nov-2014 Pending Fast DO, Libby A Vitamin B-12 1000 MCG/ML Injection Solution Ordered: 08-Oct-2014 Pending Fast DO, Libby A Vitamin B-12 1000 MCG/ML Injection Solution Ordered: 23-Jun-2014 Pending Ann Marie Cassidy CNP Vitamin B-12 1000 MCG/ML Injection Solution Ordered: 23-May-2014 Pending Fast DO, Libby A Vitamin B-12 1000 MCG/ML Injection Solution Ordered: 11-Dec-2013 Pending Fast DO, Libby A Vitamin B-12 1000 MCG/ML Injection Solution Ordered: 30-Oct-2013 Pending Fast DO, Libby A Vitamin B-12 1000 MCG/ML Injection Solution Ordered: 20-May-2013 Pending Yolette Allison LPN Vitamin B-12 1000 MCG/ML Injection Solution Ordered: 12-Mar-2013 Pending Fast DO, Libby A Vitamin B-12 1000 MCG/ML Injection Solution Ordered: 01-Feb-2013 Pending Fast DO, Libby A Vitamin B-12 1000 MCG/ML Injection Solution Ordered: 30-Oct-2012 Pending Rachel Leyva Vitamin B-12 1000 MCG/ML Injection Solution Ordered: 06-Feb-2015 Pending Fast DO, Libby A Vitamin B-12 1000 MCG/ML Injection Solution Ordered: 23-May-2018 Pending Margarita Drake DO, DO, Kathleen Instructions Name Dates Details Diabetes mellitus type 2, uncontrolled, without complications : Patient Instructions Indication: Diabetes mellitus type 2, uncontrolled, without complications Diabetes mellitus type 2, uncontrolled, without complications : How to access health information online Indication: Diabetes mellitus type 2, uncontrolled, without complications Diabetes mellitus type 2, uncontrolled, without complications : How to access health information online - Detail Indication: Diabetes mellitus type 2, uncontrolled, without complications BMI 27.0-27.9,adult : How to access health information online - Detail Indication: BMI 27.0-27.9,adult BMI 27.0-27.9,adult : How to access health information online Indication: BMI 27.0-27.9,adult BMI 27.0-27.9,adult : Patient Instructions Indication: BMI 27.0-27.9,adult Diabetes mellitus type II, controlled, with no complications : How to access health information online Indication: Diabetes mellitus type II, controlled, with no complications Diabetes mellitus type II, controlled, with no complications : How to access health information online - Detail Indication: Diabetes mellitus type II, controlled, with no complications Diabetes mellitus type II, controlled, with no complications : Patient Instructions Indication: Diabetes mellitus type II, controlled, with no complications Nonsmoker : How to access health information online Indication: Nonsmoker Nonsmoker : How to access health information online - Detail Indication: Nonsmoker Nonsmoker : Patient Instructions Indication: Nonsmoker Diabetes mellitus type 2, uncontrolled, without complications : How to access health information online Indication: Diabetes mellitus type 2, uncontrolled, without complications Diabetes mellitus type 2, uncontrolled, without complications : How to access health information online - Detail Indication: Diabetes mellitus type 2, uncontrolled, without complications Diabetes mellitus type 2, uncontrolled, without complications : Patient Instructions Indication: Diabetes mellitus type 2, uncontrolled, without complications BMI 25.0-25.9,adult : How to access health information online Indication: BMI 25.0-25.9,adult BMI 25.0-25.9,adult : How to access health information online - Detail Indication: BMI 25.0-25.9,adult Sinusitis, bacterial : Patient Instructions Indication: Sinusitis, bacterial BMI 25.0-25.9,adult : How to access health information online Indication: BMI 25.0-25.9,adult BMI 25.0-25.9,adult : How to access health information online - Detail Indication: BMI 25.0-25.9,adult BMI 25.0-25.9,adult : Patient Instructions Indication: BMI 25.0-25.9,adult Nonsmoker : How to access health information online Indication: Nonsmoker Nonsmoker : How to access health information online - Detail Indication: Nonsmoker Influenza A : Patient Instructions Indication: Influenza A Nonsmoker : How to access health information online Indication: Nonsmoker Nonsmoker : How to access health information online - Detail Indication: Nonsmoker Nonsmoker : Patient Instructions Indication: Nonsmoker Flu-like symptoms : How to access health information online Indication: Flu-like symptoms Flu-like symptoms : How to access health information online - Detail Indication: Flu-like symptoms Flu-like symptoms : Patient Instructions Indication: Flu-like symptoms Hypertensive heart disease without heart failure : cardiovascular counseling Indication: Hypertensive heart disease without heart failure Diabetes mellitus type II, controlled, with no complications : How to access health information online Indication: Diabetes mellitus type II, controlled, with no complications Diabetes mellitus type II, controlled, with no complications : How to access health information online - Detail Indication: Diabetes mellitus type II, controlled, with no complications Diabetes mellitus type II, controlled, with no complications : Patient Instructions Indication: Diabetes mellitus type II, controlled, with no complications Nonsmoker : How to access health information online Indication: Nonsmoker Nonsmoker : How to access health information online - Detail Indication: Nonsmoker Nonsmoker : Patient Instructions Indication: Nonsmoker Macrocytosis without anemia : Patient Instructions Indication: Macrocytosis without anemia Hypomagnesemia : DISCONTINUED - MAGNESIUM ([id number]) Indication: Hypomagnesemia Macrocytosis without anemia : DISCONTINUED - METABOLIC PANEL, BASIC (48120) Indication: Macrocytosis without anemia Nonsmoker : How to access health information online Indication: Nonsmoker Nonsmoker : How to access health information online - Detail Indication: Nonsmoker Nonsmoker : Patient Instructions Indication: Nonsmoker Puncture wound : How to access health information online Indication: Puncture wound Puncture wound : How to access health information online - Detail Indication: Puncture wound Puncture wound : Patient Instructions Indication: Puncture wound Nonsmoker : How to access health information online Indication: Nonsmoker Nonsmoker : How to access health information online - Detail Indication: Nonsmoker Nonsmoker : Patient Instructions Indication: Nonsmoker Nonsmoker : How to access health information online Indication: Nonsmoker Nonsmoker : How to access health information online - Detail Indication: Nonsmoker Nonsmoker : Patient Instructions Indication: Nonsmoker Nonsmoker : How to access health information online Indication: Nonsmoker Nonsmoker : How to access health information online - Detail Indication: Nonsmoker Nonsmoker : Patient Instructions Indication: Nonsmoker Sinusitis, bacterial : How to access health information online Indication: Sinusitis, bacterial Sinusitis, bacterial : How to access health information online - Detail Indication: Sinusitis, bacterial Sinusitis, bacterial : Patient Instructions Indication: Sinusitis, bacterial Nonsmoker : How to access health information online Indication: Nonsmoker Nonsmoker : How to access health information online - Detail Indication: Nonsmoker Nonsmoker : Patient Instructions Indication: Nonsmoker Nonsmoker : How to access health information online Indication: Nonsmoker Nonsmoker : How to access health information online - Detail Indication: Nonsmoker Mixed hyperlipidemia : DISCONTINUED - LIPID PANEL (22063) Indication: Mixed hyperlipidemia Mixed hyperlipidemia : DISCONTINUED - METABOLIC PANEL, COMPREHENSIVE (90963) Indication: Mixed hyperlipidemia Mixed hyperlipidemia : DISCONTINUED - LIPID PANEL (59431) Indication: Mixed hyperlipidemia Diabetes mellitus type 2, uncontrolled, without complications : DISCONTINUED - METABOLIC PANEL, COMPREHENSIVE (87009) Indication: Diabetes mellitus type 2, uncontrolled, without complications Hypertension : Patient Instructions Indication: Hypertension Hypokalemia : How to access health information online Indication: Hypokalemia Hypokalemia : How to access health information online - Detail Indication: Hypokalemia Pulmonary hypertension, moderate to severe : Patient Instructions Indication: Pulmonary hypertension, moderate to severe Diabetes mellitus type II, controlled, with no complications : How to access health information online Indication: Diabetes mellitus type II, controlled, with no complications Diabetes mellitus type II, controlled, with no complications : How to access health information online - Detail Indication: Diabetes mellitus type II, controlled, with no complications Diabetes mellitus type II, controlled, with no complications : Patient Instructions Indication: Diabetes mellitus type II, controlled, with no complications Pulmonary embolism, bilateral : How to access health information online Indication: Pulmonary embolism, bilateral Pulmonary embolism, bilateral : How to access health information online - Detail Indication: Pulmonary embolism, bilateral Pulmonary embolism, bilateral : Patient Instructions Indication: Pulmonary embolism, bilateral Sweating abnormality : How to access health information online Indication: Sweating abnormality Sweating abnormality : How to access health information online - Detail Indication: Sweating abnormality Sweating abnormality : Patient Instructions Indication: Sweating abnormality Macrocytosis without anemia : How to access health information online Indication: Macrocytosis without anemia Macrocytosis without anemia : How to access health information online - Detail Indication: Macrocytosis without anemia Macrocytosis without anemia : Patient Instructions Indication: Macrocytosis without anemia Screening for osteoporosis (Renamed from Encounter for screening for osteoporosis) : How to access health information online Indication: Screening for osteoporosis (Renamed from Encounter for screening for osteoporosis) Screening for osteoporosis (Renamed from Encounter for screening for osteoporosis) : How to access health information online - Detail Indication: Screening for osteoporosis (Renamed from Encounter for screening for osteoporosis) Screening for osteoporosis (Renamed from Encounter for screening for osteoporosis) : Patient Instructions Indication: Screening for osteoporosis (Renamed from Encounter for screening for osteoporosis) Breast screening : How to access health information online Indication: Breast screening Breast screening : How to access health information online - Detail Indication: Breast screening Breast screening : Patient Instructions Indication: Breast screening Anxiety : How to access health information online Indication: Anxiety Anxiety : How to access health information online - Detail Indication: Anxiety Anxiety : Patient Instructions Indication: Anxiety Diabetes mellitus type 2, uncontrolled, without complications : How to access health information online Indication: Diabetes mellitus type 2, uncontrolled, without complications Diabetes mellitus type 2, uncontrolled, without complications : How to access health information online - Detail Indication: Diabetes mellitus type 2, uncontrolled, without complications Diabetes mellitus type 2, uncontrolled, without complications : Patient Instructions Indication: Diabetes mellitus type 2, uncontrolled, without complications Fatigue : Patient Instructions Indication: Fatigue Acute pharyngitis : How to access health information online Indication: Acute pharyngitis Acute pharyngitis : How to access health information online - Detail Indication: Acute pharyngitis Diabetes mellitus type II, controlled, with no complications : Patient Instructions Indication: Diabetes mellitus type II, controlled, with no complications Hypertensive heart disease without heart failure : Patient Instructions Indication: Hypertensive heart disease without heart failure Diabetes mellitus type II, controlled, with no complications : Patient Instructions Indication: Diabetes mellitus type II, controlled, with no complications Urinary tract infection, site not specified : Patient Instructions Indication: Urinary tract infection, site not specified Diabetes mellitus type II, controlled, with no complications : Patient Instructions Indication: Diabetes mellitus type II, controlled, with no complications Thyroid Nodule : How to access health information online Indication: Thyroid Nodule Thyroid Nodule : How to access health information online - Detail Indication: Thyroid Nodule Thyroid Nodule : Patient Instructions Indication: Thyroid Nodule Thyroid Nodule : How to access health information online Indication: Thyroid Nodule Thyroid Nodule : How to access health information online - Detail Indication: Thyroid Nodule Diabetes mellitus type II, controlled, with no complications : Patient Instructions Indication: Diabetes mellitus type II, controlled, with no complications Claudication : Patient Instructions Indication: Claudication Diabetes mellitus type II, controlled, with no complications : Patient Instructions Indication: Diabetes mellitus type II, controlled, with no complications Pre-operative examination : Patient Instructions Indication: Pre-operative examination Diabetes mellitus type II, controlled, with no complications : Patient Instructions Indication: Diabetes mellitus type II, controlled, with no complications Diabetes mellitus type II, controlled, with no complications : Patient Instructions Indication: Diabetes mellitus type II, controlled, with no complications Diabetes mellitus type II, controlled, with no complications : Patient Instructions Indication: Diabetes mellitus type II, controlled, with no complications Diabetes mellitus type 2, uncontrolled, without complications : Patient Instructions Indication: Diabetes mellitus type 2, uncontrolled, without complications Epigastric pain : Patient Instructions Indication: Epigastric pain Abdominal pain : Patient Instructions Indication: Abdominal pain Diabetes mellitus type II, controlled, with no complications : Patient Instructions Indication: Diabetes mellitus type II, controlled, with no complications Epigastric pain : Patient Instructions Indication: Epigastric pain Advance Directives Name Dates Details Immunization Registry [place] - Effective on Effective: 25-Jul-201707/25/2017. Expiration date unspecified Encounters Office Visit On: 23-May-2018 9:14 Encounter Reason: Follow up for chronic medical issues - The patient feels well with minor complaints (very tired today wants a B12 inj) and is sleeping well (used ambien from pain doc ). Patient has been compl End: 23-May-2018 11:05 iant (finished januvia but will not buy it again it is too expensive) with instructions. Current medication use: no side effects. Patient sleeps 8 hours per night. Impact of disease: no overall impact. Nutrition: poor nutrition. The medical issues the patient is following up for include blood sugar issues, high blood pressure and high cholesterol.Encounter Diagnosis: Diabetes mellitus type 2, uncontrolled, without complications, BMI 27.0-27.9,adult , Non-smoker, Pulmonary hypertension, moderate to severe, B12 deficiency anemia, Hypertensive heart disease without heart failure, Mixed hyperlipidemia (272.2), Vitamin D deficiency (268.9), Influenza vaccination declined (Renamed from Refused influenza vaccine) [facility] Office Visit On: 18-May-2018 7:26 Encounter Reason: Lumps - Note for Lumps: rt fore arm lumpsEncounter Diagnosis: Nonsmoker, BMI 27.0-27.9,adult, Lipoma of arm, Skin tear of upper extremity End: 18-May-2018 8:07 [facility] Annotation/Addendum On: 10-Apr-2018 12:01 Encounter Diagnosis: Canker sore End: 10-Apr-2018 12:04 [facility] Office Visit On: 26-Mar-2018 11:52 Encounter Reason: Injections - The medication the patient is here to receive is vitamin B12 IM.Encounter Diagnosis: B12 deficiency anemia End: 26-Mar-2018 13:39 [facility] Office Visit On: 19-Feb-2018 9:40 Encounter Reason: Follow up for chronic medical issues - The patient feels well with minor complaints, has decreased energy level and is sleeping poorly. Patient has been compliant with instructions. Current medication u End: 19-Feb-2018 12:46 se: no side effects and compliant with dosing regimen. Patient sleeps 4 hours per night. Nutrition: balanced diet and supplemental vitamins. The medical issues the patient is following up for include Al l identified problems below, blood sugar issues, high blood pressure and high cholesterol.Encounter Diagnosis: Diabetes mellitus type II, controlled, with no complications, BMI 27.0-27.9,adult, Nonsmoker, B12 deficiency anemia, Mixed hyperlipidemia (272.2), S/P laminectomy with spinal fusion, Pulmonary hypertension, moderate to severe, Hypertensive heart disease without heart failure, Vitamin D deficiency (268.9), CAD in [place] artery [facility] Office Visit On: 07-Dec-2017 9:52 Encounter Reason: Follow up tests - Date: (12/04/17).Encounter Diagnosis: BMI 28.0- 28.9,adult, Nonsmoker, Hyperglycemia, Macrocytosis, Hypokalemia, Mixed hyperlipidemia (272.2), B12 deficiency anemia End: 07-Dec-2017 14:07 [facility] Office Visit On: 10-Nov-2017 10:24 Encounter Reason: Follow up for chronic medical issues - The patient does not feel well (in pain from her back and has been talking wioth ortho about it), has decreased energy level and is sleeping poorly. Patient has be End: 10-Nov-2017 12:46 en compliant with instructions. Current medication use: no side effects and compliant with dosing regimen. Patient sleeps 4 hours per night. Nutrition: balanced diet and supplemental vitamins. The medic al issues the patient is following up for include All identified problems below, blood sugar issues, high blood pressure and high cholesterol.Encounter Diagnosis: Diabetes mellitus type 2, uncontrolled, without complications, BMI 27.0-27.9,adult, Nonsmoker, Hypertensive heart disease without heart failure, B12 deficiency anemia, Stress reaction, Insomnia, persistent, Mixed hyperlipidemia (272.2), Pulmonary hypertension, moderate to severe, Vitamin D deficiency (268.9), CAD in [place] artery [facility] Office Visit On: 26-Sep-2017 10:11 Encounter Reason: Cough - The onset of the cough has been 3 weeks ago. The cough is characterized as productive of mucoid sputum (green). The amount of sputum produced is less than a half a cup per day. The symptoms hav End: 26-Sep-2017 10:44 e been associated with dyspnea, headache and runny nose. Note for Cough : Was seen on Sep.07-diagnosed with influenza was given Tamiflu-felt slighlty better- Followed up on Sep 13- diagnosed with bronc hitis, post viral cough-given z-pack and kaywsvqftn-Sodlj-yljva not feeling good- fatigue, fever, chills, high bp, cough-green, nasal drainage-green, headaches, facial pressure and tenderness, dry throat , back pain, SOB, and wheezing. Not taking any OTC cold medication.Encounter Diagnosis: BMI 25.0-25.9,adult, Nonsmoker, Cough, Sinus congestion, Sinusitis, bacterial, Elevated blood pressure reading with diagnosis of hypertension [facility] Office Visit On: 13-Sep-2017 10:58 Encounter Reason: Cough - Symptoms include cough, wheezing, runny nose and stuffy nose. The cough is described as hacking, honking and productive. Cough onset was sudden 1 week(s) ago. There is no known event that preced End: 13-Sep-2017 11:53 ed symptom onset. The cough occurs constantly. Symptoms are described as moderate in severity and worsening. Note for Cough: Symptoms started 1 weel ago- cough-green, nasal drainage-clear, headache, body aches, wheezing, SOB. No sore throat, CP, constipation, diarrhea, n/v.Encounter Diagnosis: BMI 25.0-25.9,adult, Nonsmoker, Post-viral cough syndrome, Bronchitis [facility] Office Visit On: 07-Sep-2017 8:34 Encounter Reason: Cough - No changes in management were made at the last visit. Symptoms include cough, wheezing, fever, runny nose and stuffy nose. The cough is described as hacking, honking and productive. Cough onset End: 07-Sep-2017 9:24 was sudden 2 day(s) ago. There is no known event that preceded symptom onset. The cough occurs constantly. Symptoms are described as moderate in severity and worsening. Note for Cough: Symptoms starte d 2 days ago-fever and chills, cough-green, nasal drainage-clear, headache, body aches, wheezing, SOB. No sore throat, CP, constipation, diarrhea, n/v.Encounter Diagnosis: BMI 25.0-25.9,adult, Nonsmoker, Fever and chills, Cough (786.2), Abnormal lung sounds, Influenza A [facility] Office Visit On: 25-Aug-2017 10:02 Encounter Reason: Diarrhea - Adult - Onset was 3 month(s) ago.Encounter Diagnosis: BMI 25.0-25.9,adult, Nonsmoker, Altered bowel habits, Irritable bowel syndrome, unspecified type, lumbarfusion 3-6 March 11//, End: 25-Aug-2017 13:28 Spinal stenosis in cervical region, RADICULOPATHY, NOS (353.9), Other facial nerve disorders (Renamed from Other disorders of facial nerve), S/P laminectomy with spinal fusion [facility] Office Visit On: 15-Aug-2017 10:30 Encounter Reason: Injections - The medication the patient is here to receive is vitamin B12 IM.Encounter Diagnosis: B12 deficiency anemia End: 15-Aug-2017 13:15 [facility] Phone Encounter On: 11-Aug-2017 8:07 Encounter Diagnosis: Elevated platelet count End: 11-Aug-2017 8:11 [facility] Office Visit On: 09-Aug-2017 10:26 Encounter Reason: Flu Like Symptoms - Symptoms include chills, body aches, nasal congestion, runny nose, postnasal drainage and sore throat, while symptoms do not include dry cough or productive cough. Onset was sudden 5 End: 10-Aug-2017 19:01 day(s) ago. There is no known event that preceded symptom onset. The patient describes this as unchanged. Note for Flu like symptoms: mechanical fall and hit left ribs on cement and sob- no cough- no t drinking or eating cant keep it down- no abd pain did have diarrhea 2 days ago none since- did get 2 bananas down yesterday- no sore throat today and feels biggest issue is pain from ribs didnt hurt a nythign else- she has percocet for pain- she didnt hit headEncounter Diagnosis: Flu-like symptoms, BMI 25.0-25.9,adult, Nonsmoker, Fall, accidental, Rib pain, Sore throat, Dehydration [facility] Office Visit On: 03-Aug-2017 11:12 Encounter Reason: Injections - The medication the patient is here to receive is vitamin B12 IM.Encounter Diagnosis: B12 deficiency anemia End: 03-Aug-2017 12:16 [facility] Office Visit On: 01-Aug-2017 9:54 Encounter Reason: Injections - The medication the patient is here to receive is vitamin B12 IM.Encounter Diagnosis: B12 deficiency anemia End: 01-Aug-2017 10:10 [facility] Office Visit On: 26-Jul-2017 11:07 Encounter Reason: Injections - The medication the patient is here to receive is vitamin B12 IM.Encounter Diagnosis: B12 deficiency anemia End: 26-Jul-2017 13:00 [facility] Office Visit On: 25-Jul-2017 10:22 Encounter Reason: Follow up for chronic medical issues - The patient does not feel well, has decreased energy level and is sleeping poorly. Patient has been compliant with instructions. Current medication use: no side ef End: 25-Jul-2017 14:49 fects and compliant with dosing regimen. Patient sleeps 5 hours per night. Nutrition: balanced diet and supplemental vitamins. The medical issues the patient is following up for include All identified p roblems below, blood sugar issues, high blood pressure and high cholesterol., [ADDITIONAL REASON] Follow up tests - Date: (06/14/17). , [ADDITIONAL REASON] Annual Medicare Exam - The patient had reviewed and updated the family history, medication/s, past medical history and social history. Yes the patient did have () a mini mental status exam done today. The activities of daily living the patient needs help with are none. The pat iejames has driven in past 6 months, fallen in the past 6 months, put area rugs through house and put handrails in bathroom, but the patient has not had fecal incontinence, had urinary incontinence, missed or ran out of medications to soon, gotten lost or has a medalert necklace or bracelet. The patient has completed the following preventative measures: PAP smear (no), mammography (no) and colonoscopy (1 7). The patient does have durable power of ip technology transactions attorney and living will. The patient has noticed nothing from the geriatic depression scale. Other providers contributing to the patient's care are biofuels research scientist, gastrologist and salon designer. Encounter Diagnosis: BMI 26.0-26.9,adult, Hypomagnesemia, Nonsmoker, Pulmonary hypertension, moderate to severe, Hypertensive heart disease without heart failure, Diabetes mellitus type II, controlled, with no complications, Mixed hyperlipidemia (272.2), B12 deficiency anemia, Vitamin D deficiency (268.9), S/P laminectomy with spinal fusion, Encounter for annual general medical examination with abnormal findings in adult, Encounter for screening mammogram for breast cancer (Renamed from Encounter for screening mammogram for malignant neoplasm of breast), Post-menopausal, Encounter for screening for malignant neoplasm of colon (Renamed from Special screening for malignant neoplasms, colon), Influenza vaccination declined (Renamed from Refused influenza vaccine) [facility] Office Visit On: 14-Jun-2017 10:15 Encounter Reason: Follow up hospital - Reason for ER visit: note: (was there 3 or 4 days from a med rxn).Encounter Diagnosis: BMI 25.0-25.9,adult, Nonsmoker, S/P laminectomy with spinal fusion, History of hypokalemia, Hypomagnesemia, End: 14-Jun-2017 11:36 Macrocytosis without anemia [facility] Annotation/Addendum On: 08-May-2017 19:16 [facility] End: 08-May-2017 19:19 Office Visit On: 05-May-2017 11:04 Encounter Reason: Transition into care - The patient is transitioning into care from a hospital (had back sx 04/14 and was just released on 05/03/17) and a summary of care was reviewed. Note for Transition into care: Had End: 05-May-2017 12:[address] Yepez for back issues sent to Transitional care unit at [place]. Saw Dr. Greene in trasitional care, had Basali consult now on Percocett and ambien.Pneumonia and UTI Apr also low calcium and low albumin, [ADDITIONAL REASON] Back Pain - Note for Back pain: post op surgery Dr. Yepez , [ADDITIONAL REASON] Cough - Note for Cough : Last antibiotic today for pneumonia , [ADDITIONAL REASON] Weight Loss - Note for Weight loss: Ongoing wt loss but had surgery Encounter Diagnosis: BMI 25.0-25.9,adult, Nonsmoker, Diabetes mellitus type II, controlled, with no complications, Chronic pain, Macrocytosis without anemia, Hypomagnesemia, S/P laminectomy with spinal fusion [facility] Annotation/Addendum On: 10-Apr-2017 13:11 [facility] End: 10-Apr-2017 13:12 Annotation/Addendum On: 17-Mar-2017 12:41 Encounter Diagnosis: Unspecified Diagnosis End: 17-Mar-2017 12:43 [facility] Office Visit On: 13-Mar-2017 9:38 Encounter Reason: Puncture Wound - Punctured R pointer finger on a spike outside about 1 week ago. The finger is swollen, warm to the touch, hard to move, tender to the touch. Pt haing surgery on ??April 14. Up to date on TDAP07/2011 End: 13-Mar-2017 10:01 Encounter Diagnosis: BMI 28.0-28.9,adult, Nonsmoker, Puncture wound, Cellulitis of skin [facility] Annotation/Addendum On: 22-Feb-2017 15:29 Encounter Diagnosis: Unspecified Diagnosis End: 23-Feb-2017 6:54 [facility] Phone Encounter On: 17-Jan-2017 16:39 Encounter Diagnosis: Hypomagnesemia, Hypokalemia End: 17-Jan-2017 16:41 [facility] Annotation/Addendum On: 17-Jan-2017 16:32 Encounter Diagnosis: Hypomagnesemia End: 17-Jan-2017 16:38 [facility] Office Visit On: 17-Jan-2017 13:04 Encounter Reason: Follow up hospital - Note for Follow up hospital: On 12-13 was seen in ER fro Nausea vomiting and diarrhea, chills and sweats Had a total knee 3 weeks prior. Had 6 weeks prior to knee surgery. Had DVT End: 17-Jan-2017 14:01 and PE last Apr 2016 . EKG done in ER with Sinur rhythm, CBC no luks, was hypoklemic. INR was 1.3, taken off blood thinner 3 weeks ago. Chest xray normal CT of abd mild colitis. Given zofran, and morphi ne and hydration. Thought she had colitis related to an infection ? viral or bacterial given scrit for xofran.Told it was colitis. Admitted to [facility] and had monitoring then cath found 25% [place] cardio myopthy, placed on carvediolol 6.25mg Recently went to [facility] seen after Nonstemi, and low EF 25% taking carvidiol 3.125 mg bid She will be seen again in Apr. Heart cath showed mild m ild coronary arter disease. Unable to tolerate statins She was encouraged to talk with Dr.Arthur torres and sleep study, but she did not do Today asking for ativan and look at sore throat , [ADDITIONAL REASON] Sore Throat - Note for Sore throat: Sore thorat for several days , [ADDITIONAL REASON] Anxiety - Note for Anxiety: Anxiety and need anxiety med Encounter Diagnosis: Nonsmoker, BMI 28.0-28.9,adult, Anxiety (300.00), Hypokalemia, Past myocardial infarction [facility] Annotation/Addendum On: 14-Nov-2016 12:37 Encounter Diagnosis: Unspecified Diagnosis End: 14-Nov-2016 12:42 [facility] Office Visit On: 03-Nov-2016 8:21 Encounter Reason: Pre-Op Visit - The procedure scheduled is a lt total knee on 11/22/16. The surgeon for the procedure will be DR. Darien Dasilva.Encounter Diagnosis: BMI 28.0-28.9,adult, Nonsmoker, Pre-operative general physical examination, End: 03-Nov-2016 12:59 Hypokalemia (Renamed from Decreased potassium in the blood), CAP (community acquired pneumonia), Sepsis with hypotension, Pulmonary hypertension, moderate to severe, Hypomagnesemia, Hypertensive heart disease without heart failure [facility] Office Visit On: 01-Nov-2016 13:07 Encounter Reason: Transition into care - The patient is transitioning into care from a hospital ([facility] 10/23 to 10/27 pneumonia) and a summary of care was not provided .Encounter Diagnosis: BMI 28.0-28.9,adult, Nonsmoker, Sepsis with hypotension, End: 01-Nov-2016 13:55 CAP (community acquired pneumonia), Hypokalemia (Renamed from Decreased potassium in the blood), Anxiety (300.00) [facility] Annotation/Addendum On: 21-Oct-2016 15:52 Encounter Diagnosis: Hypokalemia (Renamed from Decreased potassium in the blood) End: 21-Oct-2016 15:56 [facility] Office Visit On: 07-Oct-2016 13:04 Encounter Reason: Follow up acute care visit - The patient improving. Patient has been compliant with instructions. The medical issues the patient is following up for include URI.Encounter Diagnosis: Sinusitis, bacterial, BMI 29.0-29.9,adult, End: 07-Oct-2016 13:31 Nonsmoker, Sinus congestion [facility] Office Visit On: 28-Sep-2016 13:48 Encounter Reason: Follow up acute care visit - The patient feeling better since last seen. Patient has been compliant with instructions.Encounter Diagnosis: BMI 28.0-28.9,adult, Nonsmoker, Pulmonary hypertension, moderate to severe, Bronchitis, End: 28-Sep-2016 14:18 Abnormal lung sounds, Flu-like symptoms, DVT (deep venous thrombosis), Pulmonary embolism, bilateral, Sinusitis, bacterial [facility] Office Visit On: 23-Sep-2016 8:07 Encounter Reason: Follow up ER - Reason for hospitalization note: (was in [facility] er sun for bronchitis I used all the meds and I dont think I am all better yet.). Patient has been compliant with instructions. Current medica End: 23-Sep-2016 9:47 tion use: no side effects. The patient does not feel well.Encounter Diagnosis: BMI 28.0-28.9,adult, Nonsmoker, Flu-like symptoms, Pulmonary hypertension, moderate to severe, Bronchitis, Abnormal lung sounds [facility] Annotation/Addendum On: 16-Sep-2016 8:48 Encounter Diagnosis: Hypomagnesemia, Diabetes mellitus type 2, uncontrolled, without complications, Mixed hyperlipidemia (272.2) End: 16-Sep-2016 9:00 [facility] Historical Summary On: 14-Sep-2016 15:38 [facility] End: 14-Sep-2016 15:39 Office Visit On: 14-Sep-2016 11:45 Encounter Reason: Follow up tests - Diagnostic tests include other (labs). Note for Discuss procedure results: Continues to have fatigue and lack of energy, asking to be taken off of BP meds and back on lotrel , End: 14-Sep-2016 15:00 [ADDITIONAL REASON] Flu Like Symptoms - The last clinic visit was 2 week(s) ago. The symptoms occur constantly. The patient describes this as worsening. Associated symptoms include chills. The patient is not currently being treated for this problem. Previous presentation included scratchy throat, hoarseness and chills. Encounter Diagnosis: BMI 29.0- 29.9,adult, Hypokalemia, Flu-like symptoms, Diabetes mellitus type II, controlled, with no complications, Mitral valve insufficiency and aortic valve insufficiency, Hypertension [facility] Phone Encounter On: 09-Sep-2016 15:20 Encounter Diagnosis: Hypokalemia End: 09-Sep-2016 15:22 [facility] Office Visit On: 02-Sep-2016 13:23 Encounter Reason: Follow up for chronic medical issues - The patient feels well with minor complaints (tired), has decreased energy level and is sleeping well. Current medication use: no side effects and compliant with d End: 02-Sep-2016 14:24 osing regimen. Patient sleeps 6 hours per night. The medical issues the patient is following up for include All identified problems below.Encounter Diagnosis: Pulmonary hypertension, moderate to severe, Mixed hyperlipidemia (272.2), Anxiety (300.00) , Diabetes mellitus type II, controlled, with no complications, BMI 29.0-29.9,adult, Nonsmoker, Fatigue, Hypertension, Abrasion [facility] Phone Encounter On: 05-Jul-2016 9:53 Encounter Diagnosis: UTI (urinary tract infection), bacterial End: 05-Jul-2016 9:54 [facility] Phone Encounter On: 03-Jun-2016 15:43 Encounter Diagnosis: Abdominal pain (789.00) End: 03-Jun-2016 15:46 [facility] Nurse Visit (Non-Billalbe) On: 31-May-2016 8:26 Encounter Diagnosis: Pulmonary embolism, bilateral, Encounter for screening for malignant neoplasm of colon (Renamed from Special screening for malignant neoplasms, colon), Colon Polyp (211.3), DVT (deep venous thrombosis), End: 01-Jun-2016 8:51 Pulmonary hypertension, moderate to severe [facility] Phone Encounter On: 27-May-2016 14:56 Encounter Diagnosis: Hypokalemia (Renamed from Decreased potassium in the blood) End: 27-May-2016 15:02 [facility] Office Visit On: 26-May-2016 12:37 Encounter Reason: Follow up for chronic medical issues - The patient feels well with minor complaints, has decreased energy level and is sleeping well. Current medication use: no side effects and compliant with dosing re End: 26-May-2016 16:49 gimen. Patient sleeps 6 hours per night. The medical issues the patient is following up for include All identified problems below.Encounter Diagnosis: Pulmonary embolism, bilateral, Chronic pain, Elevated WBC count, Hypertensive heart disease without heart failure, Abrasion [facility] Phone Encounter On: 26-May-2016 11:18 Encounter Diagnosis: Elevated WBC count End: 26-May-2016 11:22 [facility] Annotation/Addendum On: 16-May-2016 12:09 Encounter Diagnosis: Elevated WBC count End: 16-May-2016 17:21 [facility] Office Visit On: 13-May-2016 6:44 Encounter Reason: Transition into care - The patient is transitioning into care from a hospital and a summary of care was reviewed ., [ADDITIONAL REASON] Follow up hospital - Reason for ER visit: note:. The patient feels well with min End: 13-May-2016 12:42 or complaints (weak). Patient has been compliant with instructions. Current medication use: no side effects. The hospital results of the chest X-ray and CT scan chest were Note for Follow up hospital: Admitted 04-25 and DCed 04-11-31 with UTI and sepsis with hypotension as well as PE found bilateral pulmonary emoboli. Had been sitting for 3 weeks because of sciatica. Pt had CT of abdomen and [address] finding the emboli and ? mas rt heart, bilateral pleural effusion . Also with low potassium Sent home on home oxygen at night, with home health. Sciatica will have block by Basali. Will be seeing Dr. Viri Mccray. and Dr. Wu. Encounter Diagnosis: Pulmonary embolism, bilateral, UTI (urinary tract infection), bacterial, Diabetes mellitus type II, controlled, with no complications, Anxiety (300.00), Chronic pain [facility] Phone Encounter On: 17-Feb-2016 15:11 Encounter Diagnosis: Thyroid Nodule (241.0), Mixed hyperlipidemia (272.2), B12 deficiency anemia, Vitamin D deficiency (268.9), Hypertensive heart disease without heart failure End: 17-Feb-2016 15:18 [facility] Phone Encounter On: 28-Jan-2016 14:50 Encounter Diagnosis: Abdominal pain (789.00) End: 28-Jan-2016 14:52 [facility] Annotation/Addendum On: 25-Jan-2016 17:05 [facility] End: 25-Jan-2016 17:08 Office Visit On: 25-Jan-2016 11:23 Encounter Reason: Weakness - Started yesterday ??with excessive sweating. This morning still sweating, weakness, some indigestion. Was on potassium pills for low potassium. Was on the pills x 1 week and then stopped taki End: 25-Jan-2016 12:14 ng them. On January 07 potassium was low at 3.2, was put on potassium pills. In last 2 days sweating a lot yesterday and today . Has some indigestion, relates it to eating bananna at 7:30 this am. SOB with walking as this was normal. , [ADDITIONAL REASON] Night sweats - Note for Night sweats: sweating day and night but worse in last several days Encounter Diagnosis: Sweating abnormality, Urinary tract infection, site not specified (599.0), Anxiety (300.00) [facility] Phone Encounter On: 20-Jan-2016 16:15 Encounter Diagnosis: Hypokalemia (Renamed from Decreased potassium in the blood) End: 20-Jan-2016 16:17 [facility] Office Visit On: 12-Jan-2016 8:19 Encounter Reason: Follow up tests - Date: (cbc and cmp - Dr nina (rheum), ordered).Encounter Diagnosis: Mixed hyperlipidemia (272.2), Hypocalcemia, Macrocytosis without anemia, Hypokalemia (Renamed from Decreased potassium in the blood) End: 12-Jan-2016 16:25 [facility] Office Visit On: 12-Nov-2015 7:30 Encounter Reason: Annual Medicare Exam - Yes the patient did have () a mini mental status exam done today. The activities of daily living the patient needs help with are none. The patient has driven in past 6 months End: 12-Nov-2015 23:46 , put area rugs through house and put handrails in bathroom, but the patient has not had fecal incontinence, had urinary incontinence, missed or ran out of medications to soon, fallen in the past 6 dina hs, gotten lost or has a medalert necklace or bracelet. The patient has completed the following preventative measures: PAP smear (1 yr), mammography (1 yr) and colonoscopy (2 yr). The patient does have durable power of ip technology transactions attorney and living will. The patient has noticed lack of energy. 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 Encounter Diagnosis: Encounter for screening mammogram for breast cancer (Renamed from Encounter for screening mammogram for malignant neoplasm of breast), Post-menopausal, Arnold Chiari Malformation, Thyroid Nodule (241.0), Mixed hyperlipidemia (272.2), Sun-damaged skin, Aortic Valve Insufficiency, Hypertensive heart disease without heart failure, Diabetes mellitus type II, controlled, with no complications, Lung nodule, Obesity (BMI 30.0-34.9), SOB (shortness of breath) on exertion, Mitral valve insufficiency and aortic valve insufficiency, Screening for osteoporosis (Renamed from Encounter for screening for osteoporosis), Annual Medicare Phyiscal WITHOUT abnormal findings (Renamed from Encounter for general adult medical examination without abnormal findings) [facility] Phone Encounter On: 05-Nov-2015 11:02 Encounter Diagnosis: Lung nodule End: 05-Nov-2015 11:06 [facility] Office Visit On: 29-Oct-2015 7:41 Encounter Reason: Follow up tests - Date: (10.20.15)., [ADDITIONAL REASON] Follow up for chronic medical issues - The patient feels well with no complaints End: 29-Oct-2015 15:14 , has decreased energy level and is sleeping well. Patient has been compliant with instructions. Current medication use: no side effects and compliant with dosing regimen. Patient sleeps 6 hours per nig ht. Nutrition: balanced diet, supplemental vitamins and low salt diet. The medical issues the patient is following up for include All identified problems below, blood sugar issues, cardiac issues (aorti c and mitral valve insuff. - sees [facility]), depression, gastric reflux, high blood pressure, high cholesterol and other (lumbar fusion, insomnia). Encounter Diagnosis: Breast screening, Post-menopausal, Lung nodule, Insomnia, unspecified, Diabetes mellitus type II, controlled, with no complications, Hiatal Hernia (553.3), Thyroid Nodule (241.0), B12 deficiency anemia, Vitamin D deficiency (268.9), Mixed hyperlipidemia (272.2), Arnold Chiari Malformation, Hypertensive heart disease without heart failure, SOB (shortness of breath) on exertion, Mitral valve insufficiency and aortic valve insufficiency, Screening for osteoporosis (Renamed from Encounter for screening for osteoporosis), Colon Polyp (211.3) [facility] Office Visit On: 01-Oct-2015 13:11 Encounter Reason: Bruises - I noticed them on b/l arms on ount Diagnosis: Therapeutic drug monitoring, Bruise End: 01-Oct-2015 15:31 [facility] Office Visit On: 01-Jul-2015 9:02 Encounter Reason: Follow up tests - Date: (06/23/15 blood work)., [ADDITIONAL REASON] Follow up acute care visit - The patient feeling better since last seen (noticed End: 02-Jul-2015 21:35 a difference with the change in the cymbalata. having headaches, BP has still been running high. ). Patient has been compliant with instructions. Current medication use: no side effects, compliant with dosing regimen and considered effective by patient. Impact of disease: emotional impact-moderate. Note for Follow up acute care visit: feels better anxiety with cymbalta but since changed bp med to g enerics now bp high and is using a lower dose of amlodipine- so will need to adjust that Encounter Diagnosis: Hypertensive heart disease without heart failure, Anxiety (300.00), B12 deficiency anemia, Vitamin D deficiency (268.9), Mixed hyperlipidemia (272.2) [facility] Office Visit On: 20-May-2015 8:57 Encounter Reason: Follow up for chronic medical issues - The patient feels well with minor complaints (depressed because cant work, cant get hip fixed yet so eating a lot and gaining weight. ??wants to talk about increas End: 20-May-2015 10:34 ing the gabapentin per her dentist for nerve pain in gums.), has decreased energy level and is sleeping well. Patient has been compliant with instructions. Current medication use: no side effects and co mpliant with dosing regimen. Patient sleeps 6 hours per night. Nutrition: balanced diet, supplemental vitamins and low salt diet. The medical issues the patient is following up for include All identifie d problems below, blood sugar issues, cardiac issues (aortic and mitral valve insuff.), depression, gastric reflux, high blood pressure, high cholesterol and other (lumbar fusion, insomnia). Note for Hoang mcmahon up for chronic medical issues: No routine labs done for todays visit.- bp isgood weigth down 3 pounds- having therapy for hip before surgery- on maximum dose of gabapentin alreadyEncounter Diagnosis: Dysthymic disorder (300.4), Hypertension, Diabetes type II,uncontrolled, no comp (250.02), Vitamin D deficiency (268.9), Vitamin B12 deficiency anemia (281.1), Mixed hyperlipidemia (272.2) [facility] Phone Encounter On: 17-Apr-2015 8:20 Encounter Diagnosis: Fatigue End: 17-Apr-2015 8:21 [facility] Office Visit On: 15-Apr-2015 13:24 Encounter Reason: Cold Symptoms - Symptoms include scratchy throat, sore throat, hoarseness and dry cough, while symptoms do not include nasal congestion, runny nose, postnasal drainage, productive cough, facial pressure End: 16-Apr-2015 21:41 , facial pain or headache. Onset was gradual 2 week(s) ago. The symptoms occur constantly. The patient describes this as worsening. Associated symptoms include shortness of breath, fatigue and weakness, while associated symptoms do not include ear pain, swollen lymph nodes, wheezing, nausea, vomiting, diarrhea or fever. The patient is not currently being treated for this problem. Note for Cold sympto ms: tired and clammy - no documented fever - dry cough - body aches Encounter Diagnosis: PHARYNGITIS, ACUTE (462.), Hypertension, Fatigue [facility] Office Visit On: 06-Feb-2015 8:31 Encounter Reason: Follow up for chronic medical issues - The patient feels well with minor complaints (a lot of fatigue and cant keep her nerves under control), has decreased energy level and is sleeping well. Patient mackenzie End: 08-Feb-2015 21:49 s been compliant with instructions. Current medication use: no side effects and compliant with dosing regimen. Patient sleeps 6 hours per night. Nutrition: balanced diet, supplemental vitamins and low s alt diet. The medical issues the patient is following up for include All identified problems below, blood sugar issues, cardiac issues (aortic and mitral valve insuff.), depression, gastric reflux, high blood pressure, high cholesterol and other (lumbar fusion, insomnia). Note for Follow up for chronic medical issues: bp is good- she has more stress cause cant work with back and knee- so eating more feeling anxious- the fatigue is because traveling alot for [employer] and up late and trial coming upEncounter Diagnosis: Diabetes type II,controlled no comp (250.00), Vitamin B12 deficiency anemia (281.1), Vitamin D deficiency (268.9), Mixed hyperlipidemia (272.2), Fatigue, Hypertension, Anxiety (300.00) [facility] Office Visit On: 02-Jan-2015 9:15 Encounter Reason: Follow up Meds - The patient feels well with minor complaints (couldnt tolerate the amlodipine and losartan, caused leg aches but stopped the meds and leg aches have resolved.), has decreased energy lev End: 04-Jan-2015 22:42 el and is sleeping well. Patient has been compliant with instructions. Current medication use: experiencing side effects and compliant with dosing regimen. Patient sleeps 7 hours per night. 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 Patient has been compliant with instructions. Cu End: 09-Nov-2014 22:04 rrent medication use: no side effects and compliant with dosing regimen. Patient sleeps 6 hours per night. Nutrition: balanced diet, supplemental vitamins and low salt diet. The medical issues the patie nt is following up for include All identified problems below, blood sugar issues, cardiac issues (aortic and mitral valve insuff.), depression, gastric reflux, high blood pressure, high cholesterol and other (lumbar fusion, insomnia). Note for Follow up for chronic medical issues: doing well from surgery- she not having gerd bp good sugar reasonable - bowels moving- having weight loss- she feels lli ke eating but losing weight - she isnt having pain or change in bowels or cough sob chest pain, [ADDITIONAL REASON] Follow up, Laboratory Test Results - Date: (10/27/14). , [ADDITIONAL REASON] Weight Loss - Patient reports weight loss of between 10 and 19 pounds. Symptoms include weight loss, while symptoms do not include diarrhea, nausea or vomiting. Onset was gradual 2 month(s) ago. There is no known event that preceded symptom onset. The patient describes this as worsening. 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) End: 03-Nov-2014 12:22 [facility] Refill Request On: 14-Oct-2014 12:13 Encounter Diagnosis: Urinary tract infection, site not specified (599.0) End: 14-Oct-2014 12:14 [facility] Phone Encounter On: 13-Oct-2014 10:08 Encounter Diagnosis: Hypokalemia (Renamed from Decreased potassium in the blood) End: 13-Oct-2014 10:09 [facility] Office Visit On: 08-Oct-2014 15:04 Encounter Reason: Transition into care - The patient is transitioning into care from a hospital and a summary of care was reviewed ., [ADDITIONAL REASON] Follow up hospital - Reason for ER visit: note: (severe UTI post-knee replacemen End: 08-Oct-2014 21:24 t). The patient feels well with minor complaints (very achy and tired, weak), has decreased energy level and is sleeping well. Patient has been compliant with instructions. Current medication use: no si de effects and compliant with dosing regimen. Patient sleeps 7 hours per night. Note for Follow up hospital: was hospitalized for 4 dyas - she felt veryill - was out of it- apparently she fell out of bed and tore up bathroom was confused crawled to her significant other house and he took her in was confused and had head ct and cspine ct and admitted with bad uti- obviously not confused now- she ache y all over with the levaquin still not feeling great feels hot and cold Encounter Diagnosis: Urinary tract infection, site not specified (599.0), Hypokalemia (Renamed from Decreased potassium in the blood), Fatigue, Vitamin B12 deficiency anemia (281.1) [facility] Phone Encounter On: 02-Oct-2014 12:49 Encounter Diagnosis: Unspecified Diagnosis End: 02-Oct-2014 12:57 [facility] Office Visit On: 08-Aug-2014 8:11 Encounter Reason: Follow up for chronic medical issues - The patient feels well with no complaints (having knee surgery on 08/19/14), has good energy level and is sleeping poorly (cause insurance wont pay for ambien and End: 08-Aug-2014 9:34 alternative doesnt work as well). Patient has been compliant with instructions. Current medication use: no side effects and compliant with dosing regimen. Patient sleeps 5 hours per night. Nutrition: ba lanced diet, supplemental vitamins and low salt diet. The medical issues the patient is following up for include All identified problems below, blood sugar issues, cardiac issues (aortic and mitral valv e insuff.), depression, gastric reflux, high blood pressure, high cholesterol and other (lumbar fusion, insomnia). Note for Follow up for chronic medical issues: bp is good, [ADDITIONAL REASON] Follow up, Laboratory Test Results - Date: (07/29/14). 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 Note for Follow up ER: In ER on 06-19 for hip pain. showing nothing broken. The knee has been drained x [address] Dasilva after her dogs c End: 23-Jun-2014 16:53 liipped her and made her fall. Awaiting Euflexa injections by Vidya. Seeing Basali for hip pain. Experiencing anxiety Encounter Diagnosis: Hypertension, Anxiety (300.00), Vitamin B12 deficiency anemia (281.1) [facility] Office Visit On: 23-May-2014 8:01 Encounter Reason: Follow up tests - Diagnostic tests include CT scan (chest) and ultrasound (thyroid). Date: (05/02/14). Current symptoms include other (right hip pain- big dog knocked her over on bad hip). Note for Disc End: 26-May-2014 11:58 uss procedure results: the carafate is making the pain in stomach better , [ADDITIONAL REASON] Hip Problem - Symptoms include hip problem, while symptoms do not include fever or chills. The symptoms are located in the right hip. The patient describes the hip problem as hip pain and decreased range of motion. Onset was sudden 1 week(s) ago. The symptoms occur constantly. The patient describes symptoms as worsening. Note for Hip problem: Pt was knocked down by a big dog and fell on her right hip. Has an artificial hip and has apt with [employer] but cant get in till 06/01/14.- dog getting huge at end of day- and feels like hip out Encounter Diagnosis: Thyroid Nodule (241.0), Pelvis/Thigh/Hip Pain (719.45), Knee Pain (Renamed from Gonalgia), Vitamin D deficiency (268.9), Mixed hyperlipidemia (272.2), Vitamin B12 deficiency anemia (281.1), Lung nodule (518.89), Proteinuria (791.0) [facility] Office Visit On: 21-Mar-2014 8:31 Encounter Reason: Follow up for chronic medical issues - The patient feels well with no complaints, has good energy level and is sleeping poorly (cause insurance wont pay for ambien and alternative doesnt work as well). End: 21-Mar-2014 8:56 Patient has been compliant with instructions. Current medication use: no side effects and compliant with dosing regimen. Patient sleeps 5 hours per night. Nutrition: balanced diet, supplemental vitamins and low salt diet. The medical issues the patient is following up for include All identified problems below, blood sugar issues, cardiac issues (aortic and mitral valve insuff.), depression, gastric re flux, high blood pressure, high cholesterol and other (lumbar fusion, insomnia). Note for Follow up for chronic medical issues: bp is good- saw neuro and had lumbar spine mri- and apparently had bad o a left hip so will ultimately have to have replaced- sugar good- reviewied february labs- wants something more for anxiety in afternoon, [ADDITIONAL REASON] Follow up, Laboratory Test Results - Date: (02/10/14). 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 The symptoms have been occurring in a persistent pattern. The symptoms are described as a dull ache and are moderate in severi End: 10-Feb-2014 22:34 ty. The symptoms occur at night and during the day. There is involvement of the lower extremities (both). Note for Leg pain: she just had 3 shots in lower back by basali- she is having leg pain and aching- with actiivty and rest- Encounter Diagnosis: Claudication, Myalgia and myositis, unspecified (729.1) [facility] Office Visit On: 11-Dec-2013 8:23 Encounter Reason: Follow up for chronic medical issues - The patient feels well with minor complaints (a lot of anxiety since the surgeries- ), has good energy level and is sleeping poorly (cause insurance wont pay for a End: 11-Dec-2013 9:18 mbien and alternative doesnt work as well). Patient has been compliant with instructions. Current medication use: no side effects and compliant with dosing regimen. Patient sleeps 5 hours per night. Nut rition: balanced diet, supplemental vitamins and low salt diet. The medical issues the patient is following up for include All identified problems below, blood sugar issues, cardiac issues (aortic and m itral valve insuff.), depression, gastric reflux, high blood pressure, high cholesterol and other (lumbar fusion, insomnia). Note for Follow up for chronic medical issues: she had cervical fusion went well but insurance decreased her ambien and not sleeping well so now on edge and more anxious-- bp good sugar up slight but did have 2 surgeries, [ADDITIONAL REASON] Follow up, Laboratory Test Results - Date: (10/28/13). 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 Surgical proced End: 05-Nov-2013 9:39 ures include: other (c 3-6 anterior cervical decompression fusion). Date of procedure: (11/05/13) . ??There have been no problems with general anesthesia or blood/blood products. Prosthetics include: dent ures (upper plate ). Note for Preoperative evaluation: Surgery is with Dr. Yepez in [place]- [phone] and fax- [phone]- had stimulator removed- then had mri of neck removed--apparently the arthritis affecting blood flow- - Encounter Diagnosis: Pre-Operative Examination, Unspecified (V72.84), Diabetes type II,controlled no comp (250.00), Hypertension with LVH (402.90), Vitamin D deficiency (268.9), Vitamin B12 deficiency anemia (281.1), Spinal stenosis in cervical region, Mixed hyperlipidemia (272.2), Lung nodule (518.89) [facility] Office Visit On: 09-Sep-2013 11:25 Encounter Reason: Follow up for chronic medical issues - The patient feels well with minor complaints, has good energy level and is sleeping well. Patient has been compliant with instructions. Current medication use: no End: 09-Sep-2013 12:09 side effects and compliant with dosing regimen. Patient sleeps 7 (with ambien) hours per night. Nutrition: balanced diet, supplemental vitamins and low salt diet. The medical issues the patient is follo wing up for include All identified problems below, blood sugar issues, cardiac issues (aortic and mitral valve insuff.), depression, gastric reflux, high blood pressure, high cholesterol and other (lumb ar fusion, insomnia). Note for Follow up for chronic medical issues: is getting her nerve stimulator out tomorrow- she is seeing Elizabeth for vertigo she having- he is getting an mri of her brain becuase of this once stimulator out- feeling well otherwise and sugar stable and bp is good- no gerd - sleeping ok- managing the anxiety, [ADDITIONAL REASON] Follow up, Laboratory Test Results - Date: (08/27/13). Encounter Diagnosis: Hypertension with LVH (402.90), Dysthymic disorder (300.4), Vitamin B12 deficiency anemia (281.1), Lung nodule (518.89), Vitamin D deficiency (268.9), Osteopenia (733.90), Thyroid Nodule (241.0), Anxiety (300.00), Mixed hyperlipidemia (272.2), Diabetes type II,controlled no comp (250.00) [facility] Office Visit On: 27-Aug-2013 8:49 Encounter Reason: Preoperative evaluation - The patient feels well with no complaints, has good energy level and is sleeping well. Surgical procedures include: other (Removal of spinal cord stimulator). Date of procedure End: 27-Aug-2013 11:59 : (09/10/13) . There have been no problems with general anesthesia or blood/blood products. Prosthetics include: dentures (upper plate ).Encounter Diagnosis: Pre-operative examination, unspecified (V72.84), Arnold Chiari Malformation, Diabetes type II,uncontrolled, no comp (250.02), Hypertension with LVH (402.90), Dysthymic disorder (300.4), Hiatal Hernia (553.3), Pain (780.96), Allergic rhinitis due to other allergen (477.8), Mixed hyperlipidemia (272.2) [facility] Phone Encounter On: 02-Jul-2013 15:34 Encounter Diagnosis: burning tongue syndrome End: 02-Jul-2013 15:38 [facility] Office Visit On: 18-Jun-2013 8:46 Encounter Reason: Sore Throat - Symptoms include sore throat, dysphagia, swollen glands, myalgias and fever, while symptoms do not include chills. The symptoms are symmetrical. The pain radiates to the left ear and right End: 18-Jun-2013 9:20 ear. The patient describes the pain as burning. Onset was sudden 4 day(s) ago. The symptoms occur constantly. The patient describes this as moderate in severity and worsening. Symptoms are exacerbated by swallowing liquids and swallowing solids. Associated symptoms include hoarseness, ear pain, nausea and fatigue.Encounter Diagnosis: PHARYNGITIS, ACUTE (462.), VIRAL INFECTION, UNSPECIFIED (079.99) [facility] Office Visit On: 04-Jun-2013 8:03 Encounter Reason: Follow up for chronic medical issues - The patient feels well with no complaints, has good energy level and is sleeping well. Patient has been compliant with instructions. Current medication use: no serene End: 04-Jun-2013 8:39 e effects and compliant with dosing regimen. Patient sleeps 7 (with ambien) hours per night. Nutrition: balanced diet, supplemental vitamins and low salt diet. The medical issues the patient is followin g up for include All identified problems below, blood sugar issues, cardiac issues (aortic and mitral valve insuff.), depression, gastric reflux, high blood pressure, high cholesterol and other (lumbar fusion, insomnia). Note for Follow up for chronic medical issues: has court case coming up so some stress sugar reasonable nad bp is good - she didnt do tests ordered last time- mood good though and s leeping ok had colonsocopy had polyp and due 3 years Encounter Diagnosis: Diabetes type II,controlled no comp (250.00), Vitamin B12 deficiency anemia (281.1), Osteopenia (733.90), Lung nodule (518.89), Hypertension with LVH (402.90), Vitamin D deficiency (268.9), Proteinuria (791.0), Dysthymic disorder (300.4), Colon Polyp (211.3), Mixed hyperlipidemia (272.2), Thyroid Nodule (241.0), screening , Epigastric pain (789.06) [facility] Office Visit On: 20-May-2013 8:54 Encounter Reason: Injections - The medication the patient is here to receive is vitamin B12 IM and other (PPD).Encounter Diagnosis: SCREENING EXAMINATION FOR PULMONARY TUBERCULOSIS (V74.1), Vitamin B12 deficiency anemia (281.1) End: 20-May-2013 9:16 [facility] Office Visit On: 12-Mar-2013 16:43 Encounter Reason: Injections - The medication the patient is here to receive is vitamin B12 IM. history: Patient is not currently .Encounter Diagnosis: Vitamin B12 deficiency anemia (281.1) End: 13-Mar-2013 8:53 [facility] Office Visit On: 01-Feb-2013 7:36 Encounter Reason: Follow up for chronic medical issues - The patient feels well with no complaints, has good energy level and is sleeping well. Patient has been compliant with instructions. Current medication use: no serene End: 01-Feb-2013 8:39 e effects and compliant with dosing regimen. Patient sleeps 7 (with ambien) hours per night. Nutrition: balanced diet, supplemental vitamins and low salt diet. The medical issues the patient is followin g up for include All identified problems below, blood sugar issues, cardiac issues (aortic and mitral valve insuff.), depression, gastric reflux, high blood pressure, high cholesterol and other (lumbar fusion, insomnia). Note for Follow up for chronic medical issues: has been feeling calm ??and sleeping well- sugar is stable- hasnt been taking b12 or vitamin d- no gerd - her trigs high again and is eating alot of fruit -so discussed need to cut back and ex rotuinely- and doesnt want chol meds allmade her ache, [ADDITIONAL REASON] Follow up, Laboratory Test Results - Date: (01/16/13). Encounter Diagnosis: Vitamin B12 deficiency anemia (281.1), Vitamin D deficiency (268.9), Thyroid Nodule (241.0), Osteopenia (733.90), Mixed hyperlipidemia (272.2), Hypertension with LVH (402.90), Diabetes type II,controlled no comp (250.00), Lung nodule (518.89), screening [facility] Phone Encounter On: 16-Jan-2013 12:30 Encounter Diagnosis: Anxiety (300.00) End: 16-Jan-2013 12:33 [facility] Office Visit On: 30-Oct-2012 8:06 Encounter Reason: Follow up for chronic medical issues - The patient feels well with minor complaints (alot of anxiety lately with work situation- being handled ), has good energy level and is sleeping well. Patient has End: 30-Oct-2012 9:10 been compliant with instructions. Current medication use: no side effects and compliant with dosing regimen. Patient sleeps 7 (with ambien) hours per night. Nutrition: balanced diet, supplemental vitami ns and low salt diet. The medical issues the patient is following up for include All identified problems below, blood sugar issues, cardiac issues (aortic and mitral valve insuff.), depression, gastric reflux, high blood pressure, high cholesterol and other (lumbar fusion, insomnia). Note for Follow up for chronic medical issues: No routine labs for todays apt.- she is feeeling better with stomach w ith carvivek thinks protonix better than dexilant though and pamela did egd- was white mass in stomach awaiting for the pathology- she doesnt want to go up on anxiety meds - she doesnt want counseling Encounter Diagnosis: Diabetes type II,uncontrolled, no comp (250.02), Vitamin B12 deficiency anemia (281.1), Lung nodule (518.89), Vitamin D deficiency (268.9), Thyroid Nodule (241.0), Mixed hyperlipidemia (272.2), Proteinuria (791.0), Dysphagia (787.20), Anxiety (300.00), Colon Polyp (211.3), Osteopenia (733.90) [facility] Office Visit On: 04-Oct-2012 10:09 Encounter Reason: Abdominal pain - The onset of the pain has been gradual and has been occurring in a persistent pattern for months. The course has been constant. The pain is described as a moderate dull ache (but I have End: 04-Oct-2012 12:46 a hitial hernia). The pain is described as being located in the entire abdomen. The pain does not radiate. The symptoms are aggravated by meals (1/2 to 1 hour after eating). The symptoms have no reliev ing factors. The symptoms have been associated with diarrhea, ??while the symptoms have not been associated with bloating, nausea or vomiting.Encounter Diagnosis: Grieving Reaction (309.0), Epigastric pain (789.06), Stress Reaction (308.4) [facility] Annotation/Addendum On: 26-Sep-2012 10:29 Encounter Diagnosis: Vitamin D deficiency (268.9) End: 26-Sep-2012 10:43 [facility] Office Visit On: 24-Sep-2012 8:07 Encounter Reason: Follow up tests - Date: (09/17/12 labs and esophagus test). Note for Discuss procedure results: the carafate is making the pain in stomach better Encounter Diagnosis: Dysphagia (787.20), Thyroid Nodule (241.0), End: 24-Sep-2012 9:08 Epigastric pain (789.06), Hiatal Hernia (553.3), Mixed hyperlipidemia (272.2), Myalgia and myositis, unspecified (729.1), Vitamin B12 deficiency anemia (281.1), Grieving Reaction (309.0), Anxiety (300.00) [facility] Office Visit On: 06-Sep-2012 13:59 Encounter Reason: Abdominal pain - The onset of the pain has been gradual and has been occurring in a persistent pattern for months. The course has been constant. The pain is described as a moderate dull ache (but I have End: 06-Sep-2012 14:43 a hitial hernia). The pain is described as being located in the entire abdomen. The pain does not radiate. The symptoms are aggravated by meals (1/2 to 1 hour after eating). The symptoms have no reliev ing factors. The symptoms have been associated with diarrhea, while the symptoms have not been associated with bloating, nausea or vomiting.Encounter Diagnosis: Abdominal pain (789.00), Dysphagia (787.20), Hiatal Hernia (553.3) [facility] Office Visit On: 30-Jul-2012 8:33 Encounter Reason: Follow up for chronic medical issues - The patient feels well with no complaints (pt is on atb for uti- symptoms have resolved but ordered f/u UA.), has good energy level and is sleeping well. Patient h End: 30-Jul-2012 10:47 as been compliant with instructions. Current medication use: no side effects and compliant with dosing regimen. Patient sleeps 7 (with ambien) hours per night. Nutrition: balanced diet, supplemental vit amins and low salt diet. The medical issues the patient is following up for include All identified problems below, blood sugar issues, cardiac issues (aortic and mitral valve insuff.), depression, gastr ic reflux, high blood pressure, high cholesterol and other (lumbar fusion, insomnia). Note for Follow up for chronic medical issues: she saw pamela- he is going to scope her- - and she is sleeping sh e doesnt want to do grief counseling she thinks she is doing better- and going back to work today, [ADDITIONAL REASON] Follow up, Laboratory Test Results - Date: (07/09/12). Encounter Diagnosis: Diabetes type II,controlled no comp (250.00), Cystitis,Acute (595.0), Vitamin B12 deficiency anemia (281.1), Grieving Reaction (309.0), Mixed hyperlipidemia (272.2), Hypertension with LVH (402.90), Dysthymic disorder (300.4), Lung nodule (518.89), Thyroid Nodule (241.0) [facility] Office Visit On: 05-Jul-2012 10:09 Encounter Reason: Abdominal pain - The onset of the pain has been sudden and has been occurring in a persistent pattern for 3 weeks. The course has been constant. The pain is described as a severe sharp pain. The pain is End: 05-Jul-2012 14:14 described as being located in the left upper quadrant. The pain does not radiate. The symptoms are aggravated by meals (1/2 to 1 hour after eating). The symptoms have no relieving factors. The symptoms have been associated with abdominal distention, bloating, diarrhea (the one day after I did not eat for 2 days then I did eat the bm was just pure black.-- admits to taking pepto bismolol) and nausea ( was but not anymore), while the symptoms have not been associated with constipation or heartburn. Note for Pain: I think it is my nerves causing the ab pain. My ex just 3 weeks ago. I do have appt Dr. 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 Patient has been compliant with instructions. Current medication use: no side effects and compliant with dosing regimen. Patient sleeps 7 (with amb ien) hours per night. Nutrition: balanced diet, supplemental vitamins and low salt diet. The medical issues the patient is following up for include All identified problems below, blood sugar issues, car diac issues (aortic and mitral valve insuff.), depression, gastric reflux, high blood pressure, high cholesterol and other (lumbar fusion, insomnia). Note for Follow up for chronic medical issues: fee ls good except tired butr always running around- alot of protein in urine - no hx of that no nsaids- no herbs- bp good sugar good-no gerd - sleeping and mood good and fibro ok Encounter Diagnosis: Diabetes type II,controlled no comp (250.00), Hypertension with LVH (402.90), Mixed hyperlipidemia (272.2), Lung nodule (518.89), Dysthymic disorder (300.4), Myalgia and myositis, unspecified (729.1), Epigastric pain (789.06), Vitamin B12 deficiency anemia (281.1), Proteinuria (791.0), screening [facility] Phone Encounter On: 05-Apr-2012 10:27 Encounter Diagnosis: Unspecified Diagnosis End: 05-Apr-2012 10:28 [facility] Office Visit On: 21-Dec-2011 10:16 Encounter Reason: Follow up for chronic medical issues - The patient feels well with minor complaints (wants to talk about going the neurontin and taking savella instead), has good energy level and is sleeping well. Lucille End: 21-Dec-2011 10:54 ent has been compliant with instructions. Current medication use: no side effects and compliant with dosing regimen. Patient sleeps 7 (with ambien) hours per night. Nutrition: balanced diet, supplementa l vitamins and low salt diet. The medical issues the patient is following up for include All identified problems below, blood sugar issues, cardiac issues (aortic and mitral valve insuff.), depression, gastric reflux, high blood pressure, high cholesterol and other (lumbar fusion, insomnia). Note for Follow up for chronic medical issues: Pt just had injection in jaw for chronic pain-- and has helped that chronic pain-- from Dr. Betts- her mood good and breathing is stable - chol is better - doing good in general anxiety controlle dand sleepign ok no gerd, [ADDITIONAL REASON] Follow up tests - Diagnostic tests include CT scan (chest) and other (labs). Date: (12/05/11). Encounter Diagnosis: Diabetes type II,controlled no comp (250.00), Mixed hyperlipidemia (272.2), Hypertension with LVH (402.90), SOB (786.05), Dysthymic disorder (300.4), Lung nodule (518.89) [facility] Lab Order On: 05-Dec-2011 9:19 Encounter Diagnosis: Mixed hyperlipidemia (272.2), Hypertension with LVH (402.90) End: 05-Dec-2011 9:19 [facility] Phone Encounter On: 21-Nov-2011 15:27 Encounter Diagnosis: SOB (786.05) End: 21-Nov-2011 15:34 [facility] Office Visit On: 07-Nov-2011 9:11 Encounter Reason: Sore Throat - Symptoms include sore throat, nasal congestion, swollen glands, myalgias and chills, while symptoms do not include fever. The symptoms are symmetrical. The pain radiates to the left ear an End: 07-Nov-2011 9:49 d right ear. The patient describes the pain as dull and throbbing. Onset was sudden 1 week(s) ago. The symptoms occur constantly. The patient describes this as moderate in severity and worsening. Sympto ms are exacerbated by swallowing liquids, swallowing solids and a dry environment. Symptoms are not relieved by non-prescription throat lozenges. Associated symptoms include headache, hoarseness, neck s tiffness, ear pain, facial pain, abdominal pain and fatigue, while associated symptoms do not include nausea, vomiting or cough. The patient is not currently being treated for this problem. Note for So re Throat: the joint pain and swelling in hands and feet And knees all started ??a week ago when started to feel sick- no fever joints stiff- 2 weeks ago treated by jon for sinus with amoxil- got better for week then this started, [ADDITIONAL REASON] Joint Pain - Symptoms include joint pain, joint redness, joint swelling, joint stiffness, decreased range of motion and morning stiffness. Symptoms are located in the left foot and right foot. The patient describes the pain as dull, aching and throbbing. Onset was gradual 2 week(s) ago. There is no known event that preceded symptom onset. The symptoms occur constantly. The patient describes this as moderate in severity and worsening. 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 There is no radiation. Associated symptoms include fatigue, myalgia, chills and dry mouth, while associated symptoms do not include fever, shortness of breath, rash or dry eyes. The patient is not currently being treated for this problem. Encounter Diagnosis: PHARYNGITIS, ACUTE (462.), ARTHRALGIAS 719.40 [facility] Office Visit On: 19-Sep-2011 12:03 Encounter Reason: Follow up for chronic medical issues - The patient feels well with no complaints, has good energy level and is sleeping well. Patient has been compliant with instructions. Current medication use: no serene End: 19-Sep-2011 12:47 e effects and compliant with dosing regimen. Patient sleeps 7 (with ambien) hours per night. Nutrition: balanced diet, supplemental vitamins and low salt diet. The medical issues the patient is followin g up for include All identified problems below, blood sugar issues, cardiac issues (aortic and mitral valve insuff.), depression, gastric reflux, high blood pressure, high cholesterol and other (lumbar fusion, insomnia). Note for Follow up for chronic medical issues: she saw Crowely and he didnt feel she needed to do anything with the kidneys and saw nuris and getting stress test- because has wong- a nd she doesnt have the diarrhea any more- weight down 15 pounds in 6 mos- she is trying and bp is good, [ADDITIONAL REASON] Follow up, Laboratory Test Results - Date: (07/18/11). Encounter Diagnosis: SOB (786.05), Mixed hyperlipidemia (272.2), Hypertension with LVH (402.90), Diabetes type II,controlled no comp (250.00), Dysthymic disorder (300.4), GENERAL SYMPTOMS; INSOMNIA, UNSPECIFIED (780.52) [facility] Office Visit On: 25-Jul-2011 8:25 Encounter Reason: Abdominal pain - The onset of the pain has been gradual and has been occurring in a persistent pattern for 1 month. The course has been increasing. The pain is described as a moderate sharp pain and dul End: 25-Jul-2011 9:29 l ache. The pain is described as being located in the left upper quadrant. The pain does not radiate. The symptoms are aggravated by meals (1/2 to 1 hour after eating). The symptoms are relieved by vomi ting. The symptoms have been associated with bloating, chest pain, diarrhea, nausea and vomiting, while the symptoms have not been associated with abdominal distention, bloody stools, constipation, cassie k urine, dysuria, fever or heartburn. Note for Abdominal pain: no solid stools no fever- no antiobioticsEncounter Diagnosis: Need for prophylactic vaccination and inoculation against influenza (V04.81), Diarrhea (787.91), Abdominal Pain,LUQ (789.02) [facility] Office Visit On: 20-Apr-2011 8:28 Encounter Reason: Follow up for chronic medical issues - The patient feels well with no complaints, has good energy level and is sleeping well. Patient has been compliant with instructions. Current medication use: no serene End: 20-Apr-2011 9:10 e effects and compliant with dosing regimen. Patient sleeps 7 hours per night. Nutrition: balanced diet, supplemental vitamins and low salt diet. The medical issues the patient is following up for inclu de All identified problems below, blood sugar issues, cardiac issues (aortic and mitral valve insuff.), depression, gastric reflux, high blood pressure, high cholesterol and other (lumbar fusion, insomn ia). Note for Follow up for chronic medical issues: feels most of issue is fibro taking 60 mg of cymbalta- would like to try higher dose- anxiety and breathing about the same-drinking alot of milkshakes- sugar up, [ADDITIONAL REASON] Follow up, Laboratory Test Results - Date: (04/13/11). , [ADDITIONAL REASON] Follow up tests - Diagnostic tests include chest X-ray and mammography (01/27/11). Date: (03/17/11). Encounter Diagnosis: Dysthymic disorder (300.4), Myalgia and myositis, unspecified (729.1), Hypertension with LVH (402.90), Mixed hyperlipidemia (272.2), SOB (786.05), Diabetes type II,uncontrolled, no comp (250.02) [facility] Phone Encounter On: 04-Apr-2011 13:33 Encounter Diagnosis: Abnormal CT(793.9) End: 04-Apr-2011 13:40 [facility] Office Visit On: 16-Mar-2011 9:54 Encounter Reason: Follow up tests - Diagnostic tests include CT scan (neck) and mammography (01/27/11). Date: (01/24/11). Past medical history includes emotional problems. Note for Follow up tests: lump in neck not changed- alot of stress and anxiety End: 16-Mar-2011 10:55 Encounter Diagnosis: Dysthymic disorder (300.4), Abnormal CT(793.9), SOB (786.05), neck mass [facility] Office Visit On: 17-Jan-2011 8:36 Encounter Reason: Follow up for chronic medical issues - The patient feels well with no complaints, has good energy level and is sleeping well. Patient has been compliant with instructions. Current medication use: no serene End: 17-Jan-2011 9:21 e effects and compliant with dosing regimen. Patient sleeps 8 hours per night. Nutrition: balanced diet, supplemental vitamins and low salt diet. The medical issues the patient is following up for inclu de All identified problems below, blood sugar issues, cardiac issues (aortic and mitral valve insuff.), depression, gastric reflux, high blood pressure, high cholesterol and other (lumbar fusion, insomn ia). Note for Follow up for chronic medical issues: she is not exercising routinely- cant go up on chol meds make her ache- - her bp is good- and weight is stable- she admits to eating alot of carbs s o discussed diet and exercise-mood is good with buspar and anxiety is controlled and sleeping better - no gerd, [ADDITIONAL REASON] Follow up, Laboratory Test Results - Date: (01/03/11). , [ADDITIONAL REASON] Lumps - Note for Lumps: lump right neck -little pain not all time- noticed a month ago- no other sx- right next to surgical scar Encounter Diagnosis: Diabetes type II,controlled no comp (250.00), Hypertension with LVH (402.90) , Mixed hyperlipidemia (272.2), Dysthymic disorder (300.4), Abnormal glucose tolerance test (790.22), Myalgia and myositis, unspecified (729.1), GENERAL SYMPTOMS; INSOMNIA, UNSPECIFIED (780.52), Sleep disorder (307.40), EDEMA, NOS (782.3), screening ,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 9:05 Encounter Reason: Follow up Meds - The patient feels well with no complaints ,has good energy level and is sleeping well. Patient has been compliant with instructions. Current medication use: no side effects and complian End: 13-Jun-2007 10:00 t with dosing regimen. Note for Follow up Meds: The paxil being increased to 25mg has helped alot with the depression.- sleeping better and overall doing well, [ADDITIONAL REASON] Follow up, Laboratory Test Results - Date: (05/14/07). Encounter Diagnosis: Other and unspecified diseases of the oral soft tissues (528.9), Dysthymic disorder (300.4), Mixed hyperlipidemia (272.2) [facility] Office Visit On: 02-May-2007 11:39 Encounter Reason: Follow up for chronic medical issues - The patient feels well with minor complaints (fatigue and itching) ,has decreased energy level and is sleeping well. Patient has been compliant with instructions. End: 02-May-2007 12:38 Current medication use: no side effects and compliant with dosing regimen. Nutrition: inappropriate diet and supplemental vitamins. The medical issues the patient is following up for include All identif ied problems below ,blood sugar issues ,gastric reflux ,high blood pressure ,high cholesterol and other (anxiety). Note for Follow up for chronic medical issues: - alot of stress - now taking care of Jessica Noblehaving issues with her lips and herpes flaring- famvir helped in the past - she refuses meds for her chol- mood has been good- try eucerin on skin - thinks wants more paxil and go on regular ambien, [ADDITIONAL REASON] Follow up, Laboratory Test Results - Date: (04/16/07). , [ADDITIONAL REASON] Fatigue - The onset of the fatigue has been gradual and has been occurring in an intermittent pattern for months. The course has been recurrent. The fatigue occurs towards the end of the day. The symptoms have been associated with nasal stuffiness and runny nose, while the symptoms have not been associated with chest pain ,cough ,depression or sore throat. , [ADDITIONAL REASON] Itching - The onset of the itching has been gradual and has been occurring in an intermittent pattern for months. The course has been recurrent. The itching is moderate and interfering with sleep. The itching occurs all the time. The itching is located on the upper extremities (hansa k). The symptoms have no aggravating factors. The symptoms have no relieving factors. The symptoms have been associated with dry skin, while the symptoms have not been associated with exposure to poison abner ,painful bowel movements or vaginal discharge. Note for Itching: only notices if not busy and sitting down- she feels it is nerve related- - puts on lotion all the time Encounter Diagnosis: Abnormal glucose tolerance test (790.22), GENERAL SYMPTOMS; INSOMNIA, UNSPECIFIED (780.52), Hypertension with LVH (402.90), Mixed hyperlipidemia (272.2), Dysthymic disorder (300.4), pruritis [facility] Office Visit On: 26-Feb-2007 8:23 Encounter Reason: Facial Pain - The onset of the pain has been sudden and has been occurring in a persistent pattern for 1 weeks. The course has been constant. The pain is described as severe (it is my lower lip). Encounter Diagnosis: End: 26-Feb-2007 9:02 GENERAL SYMPTOMS; INSOMNIA, UNSPECIFIED (780.52), Herpes simplex without mention of complication (054.9) [facility] Office Visit On: 08-Jan-2007 8:42 Encounter Reason: Follow up for chronic medical issues - The patient feels well with minor complaints ,has good energy level and is sleeping well (with Ambien ). Patient has been compliant with instructions. Current medi End: 08-Jan-2007 9:28 cation use: experiencing side effects (Gemfibrozol states cannot tolerate ). Patient sleeps 7 hours per night. Impact of disease: emotional impact-mild. Nutrition: balanced diet. The medical issues the patient is following up for include cardiac issues ,depression ,gastric reflux ,high blood pressure ,high cholesterol and other (insomnia ). Note for Follow up for chronic medical issues: was hospital ized with gastroenteritis and is back to eating and drinking with no diarrhea- she was on elavil for nerves in her face- wonder if we cant use higher dose of neurontin in place of - the elavil- she quit the gemfibrozil - made her ache Encounter Diagnosis: Hypertension with LVH (402.90), Mixed hyperlipidemia (272.2), GERD (530.81), Abnormal glucose tolerance test (790.22), radiculopathy [facility] Office Visit On: 09-Oct-2006 9:12 Encounter Reason: Follow up for chronic medical issues - The patient feels well with minor complaints (joint pain) ,has good energy level and is sleeping well. Patient has been compliant with instructions. Current medica End: 09-Oct-2006 10:37 tion use: no side effects and compliant with dosing regimen. Patient sleeps 7 hours per night. Nutrition: inappropriate diet ,supplemental vitamins and low salt diet. The medical issues the patient is f ollowing up for include blood sugar issues ,high blood pressure ,high cholesterol and other (anxiety, chronic neuro pain from surgery.). Note for Follow up for chronic medical issues: couldnt take zet ia- made her vomit- but mood is good and sleeping well- is taking altace- walking - encourage diet with -watching carbs and sweets, [ADDITIONAL REASON] Follow up, Laboratory Test Results - Date: (10/03/06- on face sheet). Encounter Diagnosis: Mixed hyperlipidemia (272.2), GERD (530.81), Hypertension with LVH (402.90), Abnormal glucose tolerance test (790.22), Dysthymic disorder (300.4), Sleep disorder (307.40) [facility] Office Visit On: 09-Aug-2006 10:55 Encounter Reason: Follow up for chronic medical issues - The patient feels well with minor complaints (stomach pain) ,has decreased energy level and is sleeping poorly. Patient has been compliant with instructions. Curre End: 09-Aug-2006 12:15 nt medication use: no side effects. Patient sleeps 8 hours per night. Impact of disease: emotional impact-moderate. Nutrition: inappropriate diet and supplemental vitamins. The medical issues the patien t is following up for include blood sugar issues ,high blood pressure ,high cholesterol and other (anxiety,epigastric pain.). blood pressure range :. Note for Follow up for chronic medical issues: had bps running 170-190 /100 so doubled up on altace and got better- couldnt get insurance to pay for [employer]- [employer] works for her- thinks she needs to go back antidepressants - refuses flu and pneumovax, [ADDITIONAL REASON] Follow up, Laboratory Test Results - Date: (06/26/06-flp,liver- on face sheet.). Note for Follow up, Laboratory Test Results: quit tricor made her ache but working on diet and losing wt- walking daily Encounter Diagnosis: Hypertension with LVH (402.90), Abnormal glucose tolerance test (790.22), Urinary tract infection, site not specified (599.0), Mixed hyperlipidemia (272.2), Sleep disorder (307.40), Radiculopathy, Dysthymic disorder (300.4) [facility] Historical Summary On: 07-Jul-2006 7:54 [facility] End: 07-Jul-2006 8:18 Historical Summary On: 28-Jun-2006 10:51 [facility] End: 28-Jun-2006 10:54 Historical Summary On: 31-May-2006 15:17 [facility] End: 31-May-2006 15:22 Payers MedicareCignMauro ballard guarantor
--- OUTSIDE RECORDS SUMMARY | 2018-10-01 09:06 | XMS RPT_ITS | Continuity of Care Document ---
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) Status: Active Elevated platelet count (R79.89, 790.6) Status: Active Encounter for annual general medical examination with abnormal findings in adult (Z00.01, V70.0) Status: Active Encounter for screening for malignant neoplasm of colon (Renamed from Special screening for malignant neoplasms, colon) (Z12.11, V76.51) Comments: last scope 03/20 [facility] Status: Active Encounter for screening mammogram for [...] d ay (can buy a pedometer at [employer]), -5 days of week of 30 mins [...] days Quantity: 60 {Tablet} Refills: 3 Ordered:31-Jan-2017 Ann Marie Cassidy CNP Start : 31-Jan-2017 Active Cymbalta 30 MG Oral Capsule Delayed Release Particles 3 (three) Capsule DR Part qd for 30 days Quantity: 90 {Capsule} Refills: 3 Ordered:07-Dec-2017 Yanni Drake DO, DO, Kathleen Start : 07-Dec-2017 Active Gabapentin 800 MG Oral Tablet 1 (one) Tablet tid for 30 days Quantity: 90 {Tablet} Refills: 0 Ordered:04-Jun-2018 Yanni Drake DO, DO, Kathleen Start : 04-Jun-2018 Active Comments:Dr Betts manages now Glucophage XR 500 MG Oral Tablet Extended [...] 10-Apr-2018 Active VITAMIN C & E COMBINATION, [id number] (Oral Capsule) 1 (one) Capsule Capsule qd [...] days Quantity: 20 {Tablet} Refills: 0 Ordered:13-Mar-2017 Sergei GALARZALibby Start : 13-Mar-2017 End : 23-Mar-2017 Inactive Ativan 0.5 MG Oral Tablet 1 tab Tablet qd prn for 150 days Quantity: 60 {Tablet} Refills: 0 Ordered:10-Nov-2017 Noelle Yanni GALARZA DO, Kathleen Start : 10-Nov-2017 End : 09-Apr-2018 Inactive Comments:Sixty script given to sgpoajpH49.0 AUGMENTIN, 875-125MG (Oral Tablet) 1 Tablet bid for 10 days Quantity: 20 {Tablet} Refills: 0 Ordered:17-Apr-2015 Sergei Libby GALARZA Start : 17-Apr-2015 End : 27-Apr-2015 Inactive Benzedrex Nasal Inhaler 1 (one) Inhaler prn for 0 days Quantity: 7 {Inhaler} Refills: 0 Ordered:28-Oct-2016 JASPER Mckeon Start : 07-Oct-2016 End : 28-Oct-2016 Inactive Carafate 1 GM Oral Tablet 1 Tablet tid for 0 days Quantity: 90 {Tablet} Refills: 4 Ordered:26-May-2016 Halle Rodas LPN Start : 07-Jun-2013 End : 26-May-2016 Inactive [...] days Quantity: 90 {Tablet} Refills: 3 Ordered:26-May-2016 Halle Rodas LPN Start : 23-Jun-2014 End : 26-May-2016 Inactive [...] Start : 02-Sep-2010 End : 16-Sep-2010 Inactive Klor-Con M20 20 MEQ Oral Tablet Extended Release 1 (one) Tablet ER qd for 7 days Quantity: 7 {Tablet} Refills: 0 Ordered:27-May-2016 Halle Rodas LPN Start : 27-May-2016 End : 03-Jun-2016 Inactive LevoFLOXacin 500 MG Oral Tablet 1 (one) Tablet Daily for 0 days Quantity: 10 {Tablet} Refills: 0 Ordered:10-Nov-2017 Alo Allyn URBINAN Start : 26-Sep-2017 End : 10-Nov-2017 Inactive [...] days Quantity: 30 {Tablet} Refills: 0 Ordered:14-Jun-2010 Emre ORTIZ Nela Start : 23-Dec-2009 End : 14-Jun-2010 Inactive [...] Start : 29-Oct-2015 End : 26-May-2016 Inactive Comments:Alokcristobaltara Neurontin 600 MG Oral Tablet 1 (one) [...] : 28-Jan-2016 End : 07-Feb-2016 Inactive NYSTATIN, [id number]/GM (External Cream) apply Cream bid to affected [...] Start : 25-Oct-2007 Inactive VITAMIN D (ERGOCALCIFEROL), 91022LDSK (Oral Capsule) 1 Capsule q weekly for [...] days Quantity: 1 {Box} Refills: 0 Ordered:26-Sep-2017 AugieStefanie Start : 13-Sep-2017 End : 26-Sep-2017 Discontinued ALTACE, 10MG (Oral Capsule) 2 (two) Capsule QD for 0 days Quantity: 60 {Capsule} Refills: 5 Ordered:14-May-2008 Sergei GALARZA Libby Ballard Start : 14-May-2008 End : 14-May-2008 Discontinued AMBIEN CR, 12.5MG (Oral Tablet Extended Release) 1 tab q hs (12.5 MG) End : 11-Dec-2013 Discontinued Comments:Pt gets this from Dr. Betts AMBIEN CR, 12.5MG (Oral Tablet Extended Release) 1 tab Tablet ER qhs,prn for 0 days Quantity: 30 {Tablet_ER} Refills: 3 Ordered:23-Dec-2009 Sergei GALARZALibby Start : 23-Dec-2009 End : 23-Dec-2009 Discontinued AMBIEN, 10MG (Oral Tablet) 1 tab Tablet q [...] days Quantity: 10 {Vial} Refills: 3 Ordered:02-Sep-2016 Slarb STATIONARY ENGINEER SUPERVISOR, Marlyn Start : 21-Mar-2014 End : 02-Sep-2016 Discontinued [...] days Quantity: 4 {Tablet} Refills: 0 Ordered:07-Oct-2016 Slarb STATIONARY ENGINEER SUPERVISOR, Marlyn Start : 23-Sep-2016 End : 07-Oct-2016 Discontinued [...] allergen (J30.89, 477.8) Comments: allergy shots weekly [place] Status: Inactive as of 28-Oct-2015 Benign paroxysmal [...] as of 11-Dec-2013 Pain (R52, 780.96) Comments: brandin on neurontin Status: Resolved as of 09-Sep-2013 Poison abner (L23.7, 692.6) Status: Resolved as of 05-Jun-2009 Pre-operative examination (Z01.818, V72.84) Status: Inactive as of 21-Mar-2014 Pre-operative examination (Z01.818, V72.84) Status: Inactive as of 21-Mar-2014 Pre-operative general physical examination (Z01.818, V72.83) Comments: ekg at [facility] with records from recent hospitalization Status: [...] congestion (R09.81, 478.19) Status: Inactive as of 2-Mar-2017 Sinus congestion (R09.81, 478.19) Status: Resolved as of 10-Nov-2017 Sinusitis, bacterial (J32.9, 473.9) Status: Resolved as of 10-Nov-2017 Sinusitis, bacterial (J32.9, 473.9) Status: Inactive as of 03-Nov-2016 Sleep disorder (G47.9, 307.40) Comments: chronic stable-continue present regimen Status: Inactive as of 28-Oct-2015 SOB (shortness of breath) on exertion (R06.02, 786.05) Comments: See referral letter from [facility] REspiratory scanned document Dr Munguia saw [...] and Obrych, surgical decompression /fusion c3-c6- 2013- [facility] Completed Date Value Details 07-May-2018 Discharge Instruction Result: Comments: See Note; NOTES: [facility] Medical Records Department [address] [place] [address] Discharge Instruction 05/07/18 0931 MR#: [id number] Acct: [id number] Name: Radha MAHARAJ Rep #: [id number] : 1945 72 From: Parminder Blanco MD [...] your Primary Care Provider. Call [facility] ) or report to the closest Emergency Room. Call 911 if necessary. 05/07/18 1545 <Electronically signed by Parminder Blanco MD> Date J brent Blanco MD Cosigner Signature (If Indicated): Date CC: Margarita Drake DO 07-May-2018 Emergency Department Summary Result: Comments: See Note; NOTES: [facility] Medical Records Department [address] [place] [address] Emergency Department Summary 05/07/18 0838 MR#: [id number] Acct: [id number] Name: MAR MAHARAJ Rep #: [id number] : 1945 72 From: Parminder Blanco MD PCP: Margarita Drake DO Status: DEP ER - ER Visit Summary Date of Service: 05/07/18 Chief Complaint: Nausea, vomiting and diarrhea History of Present Illness: The patient is a 72 F has a past medical history of valvular heart disease, hypertension, cholesterol spinal stenosis and multiple surgeries. Patient states she zoran t to [employer] on Monday. And she developed nausea [...] Dehydration This note was ge nerated with [employer] dictation software. It may contain incorrect words, [...] problems, contact your Primary Care Provider. Call [facility] ([phone]) or report to the closest Emergency Room. Call 911 if necessary. 05/07/18 1545 <Elec tronically signed by Parminder Blanco MD> Date Parminder Blanco MD Cosigner Signature (If Indicated): Date CC: Margarita Drake DO 22-Feb-2018 Downtime Report Result: Comments: See Note; NOTES: [facility] Medical Records Department [address] [place] [address] Downtime Report MR#: [id number] Acct: [id number] Name: MAR MAHARAJ Rep #: [id number] : 1945 72 From: Gilson Washington PCP: Margarita Drake DO Status: REG CLI This patient was seen during an EMR downtime February 05, 2018 - February 12, 2018. This patient may have a combination o f paper and electronic documentation or all paper documentation. All documentation is viewable within the e-chart portion of [facility] for each patient visit. 08-Feb-2018 Spine Lumbar (Routine) Result: Comments: See Note; NOTES: [facility] Imaging Services [address] [place] [address] Spine Lumbar (Routine) MR#: [id number] Acct: [id number] Name: MAR MAHARAJ Rep #: [id number] : 1945 F 72 From: Dylan Donato MD PCP: Margarita Drake DO Status: REG CLI Study: Spine Lumbar (Routine) Date of Exam: 02/08/18 Exam# [id number] Ordering Dr: De Yepez STUDY: MRI LUMBAR SPINE WITHOUT CONTRAST [...] , CC: NICO YEPEZ; Margarita Drake DO Grants Assistant: Signed 08-Feb-2018 Spine Lumbar without Contrast Result: Comments: See Note; NOTES: [facility] Imaging Services [address] [place] [address] Spine Lumbar without Contrast MR#: [id number] Acct: [id number] Name: MAR MAHARAJ Rep # : [id number] : 1945 F 72 From: Robles Mejia PCP: Margarita Drake DO Status: REG CLI Study: Spine Lumbar without Contrast Date of Exam: 02/08/18 Exam# [id number] Ordering Dr: De Yepez STUDY: C T LUMBAR SPINE WITHOUT [...] paraspinous soft tissue structures. ORDE R #: [id number] CT/Spine Lumbar without Contrast IMPRESSION: Multilevel degenerative change discussed above. Hardware as described. Right L3 pedicle screw appears broken. Grade 1 anterolisthesis of L4 on L5. Laminectomies. Demineralization. Electronically Signed: Robles Mejia DO at 10:57 EDT , Service support , CC: DE Drake DO Grants Assistant: Signed 09-Jan-2018 Pulmonary Visit Report Result: Comments: See Note; NOTES: [facility] [address] [place] [address] OFFICE VISIT Date of Service: 01/09/18 MR#: [id number] Acct: [id number] Name: MAR HOLLIDAY Rep #: [id number] : 1945 Provider: Adair Wu MD Age/Sex: 72/F Location: [facility] Status: Signed Assessment AND Plan Problems 1. [...] 6 M FU Chief Complaint: Follow up [employer] Field Agent Required: No DME Vendor: [employer] Accompanie d [...] 10/12/17 [History Confirmed 12/03/17] Hydrocodone Bitart/Apap 5-325 [[place] 5MG-325MG] 1 tab PO Q6H PRN PRN 3 Days #10 tab 12/03/17 [Rx] sodium chloride 0.65 % nasal spray aerosol 2 spray INTRANASAL QHS ml 01/09/18 [History Confirmed 01/09/18] PFSH Medical History Hyperlipidemia (Chronic) Elevated blood pressure reading without diagnosis of hypertension (Chronic) Other fpc (current) drug therapy (Chronic) Nonrheumatic aortic (valve) [...] Date (if applicable) CC: Ann Marie Cassidy COTTON BAG SEWER; Margarita Drake 03-Dec-2017 Emergency Department Summary Result: Comments: See Note; NOTES: [facility] Medical Records Department [address] [place] [address] Emergency Department Summary 12/03/17 1656 MR#: [id number] Acct: [id number] Name: MAR MAHARAJ Rep #: [id number] : 1945 72 From: Arya Torrez MD [...] blunt trauma This note was generated with [employer] dictation software. It may contain incorrect words, spelling, and punctuation that were not noted in review of the chart prior to signing ED Disposition - Plan for ED Patient: Disposition: Home or Assisted Living Chief Complaint: Chest Other Instructions: ED Contusion Vs Minor Fx Rib Prescriptions: Hydrocodone Bitart/Apap 5-325 [Wanchese 5MG-325MG] 1 tab PO Q6H PRN PRN 3 Days #10 tab PRN Reason: Alena n Referrals: Margarita Drake, [Primary Care Provider] - 1 Week if not improving What to do if you have Problems For any increased pain, shortness of breath, bleeding, nausea or vomiting, chest pa in, or any unexpected problems, contact your Primary Care Provider. Call [facility] Registry ([phone]) or report to the closest Emergency Room. Call 911 if necessary. 12/03/17 1706 <Electron ically signed by Arya Torrez MD> Date Arya Torrez MD Cosigner Signature (If Indicated): Date CC: Margarita Drake DO 03-Dec-2017 Chest PA and Lateral Result: Comments: See Note; NOTES: [facility] Imaging Services [address] [place] [address] Chest PA and Lateral MR#: [id number] Acct: [id number] Name: MAR MAHARAJ Rep #: [id number] : 1945 F 72 From: Lotus Anthony MD PCP: Margarita Drake DO Status: DEP ER Study: Chest PA and Lateral Date of Exam: 12/03/17 Exam# [id number] Ordering Dr: Arya Torrez MD STUDY: X-RAY [...] CC: Margarita Drake DO; Arya Torrez MD Grants Assistant: Signed 18-Oct-2017 SCREENING MAMM (CAD), BILAT Result: Comments: See Note; NOTES: [facility] Imaging Services [address] [place] [address] SCREENING MAMM (CAD), BILAT MR#: [id number] Acct: [id number] Name: MAR MAHARAJ Rep #: [id number] : 1945 F 72 From: Florian Valenzuela MD PCP: Margarita Drake DO Status: REG CLI Study: SCREENING MAMM (CAD), BILAT Date of Exam: 10/18/17 Exam# [id number] Ordering Dr: Alysia Drake DO MAMMOGRAPHY - [...] 19, 2015 and November 17, 2014. FINDINGS: Arlene st Composition: There are scattered areas of [...] delay biopsy of a clinically suspicious abnormality. [id number] Electronically Signed: Florian Howard i, MD at 13:51 EST Tel [phone], Service support , CC: Margarita Drake DO Grants Assistant: Signed 13-Oct-2017 Cardiology Visit Report Result: Comments: See Note; NOTES: [facility] [address] [place] [address]. 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 Coronary artery disease involving tribal coronary artery of tribal heart without angina pectoris I25.10 Mild Plan [...] vis,est,level 3 Diagnoses Coronary artery disease involving tribal coronary artery of tribal heart without angina pectoris I25.10 Coronary Disease-Associated Artery/Lesion type: tribal artery [place] vs. transplanted heart: tribal heart Associated angina: without angina Essential hyperten tamika I10 Hypertension type: essential hypertension Coding Level of Care Code Off vis,est,level 3 Diagnoses Coronary artery disease involving tribal coronary artery of tribal heart without angina pect wilber I25.10 Coronary Disease-Associated Artery/Lesion type: tribal artery [place] vs. transplanted heart: tribal heart Associated angina: without angina Essential hypertension I10 Hypertension type: esse ntial hypertension 10/13/17 1546 <Electronically signed by Sergio Lawler MD> Date Sergio Lawler MD Cosigner Signature: Date _ (if applicable) CC: Margarita Drake DO 26-Sep-2017 Chest PA and Lateral Result: Comments: See Note; NOTES: [facility] Imaging Services [address] [place] [address] Chest PA and Lateral MR#: [id number] Acct: [id number] Name: MAR MAHARAJ Rep #: [id number] : 1945 F 72 From: Quinn Pringle PCP: Margarita Drake DO Status: REG CLI Study: Chest PA and Lateral Date of Exam: 09/26/17 Exam# [id number] Ordering Dr: Allyn Manley COTTON BAG SEWER-C STUDY: X-RAY C HEST REASON FOR EXAM: [...] EST , Service support , CC: HUANG Mnaley; Margarita Drake DO Grants Assistant: Signed 22-May-2017 History and Physical Exam Result: Comments: See Note; NOTES: [facility] Medical Records Department [address] [place] [address] History and Physical 05/22/17 1809 MR#: [id number] Acct: [id number] Name: RUDY MAHARAJ Rep #: [id number] : 1945 71 From: Edward Chao DO [...] knee (Chronic) Sinusitis, chronic (Chronic) Takotsubo cardiomyopathy (Piano Assembler deangelo) chairi malformations/p posterior decompr (Chronic) Allergies [...] 7 back surgeries Psychiatric History: Anxiety, Depression [employer] History: ovarian cancer - Status post bilateral [...] about the patient's medications. The emergency room maryanaaustin barbara stated that the patient's significant other [...] Signature (if applicable): Date CC: Ann Marie Cassidy; Edward Chao DO Signed 22-May-2017 Emergency Department Summary Result: Comments: See Note; NOTES: [facility] Medical Records Department [address] [place] [address] Emergency Department Summary 05/22/17 1707 MR#: [id number] Acct: [id number] Name: MAR MAHARAJ Rep #: [id number] : 1945 71 From: Angelo William MD [...] your Primary Care Provider. Call [facility] barnard ([phone]) or report to the closest Emergency Room. Call 911 if necessary. 05/22/17 1710 <Electronically signed by Angelo William MD> Date Angelo William MD Cosigner Signature (If Indicated): Date CC: Ann Marie Cassidy 22-May-2017 Brain/Head without Contrast Result: Comments: See Note; NOTES: [facility] Imaging Services [address] [place] [address] Brain/Head without Contrast MR#: [id number] Acct: [id number] Name: MAR MAHARAJ Rep #: [id number] : 1945 F 71 From: Dorothy Barber MD PCP: Ann Marie Cassidy Status: REG ER Study: Brain/Head without Contrast Date of Exam: 05/22/17 Exam# [id number] Ordering Dr: Angelo William MD STUDY : [...] CC: Ann Marie Cassidy; Angelo William MD Grants Assistant: Signed 22-May-2017 Chest 1 View (Portable) Result: Comments: See Note; NOTES: [facility] Imaging Services [address] [place] [address] Chest 1 View (Portable) MR#: [id number] Acct: [id number] Name: MAR MAHARAJ Rep #: [id number] : 1945 F 71 From: Dorothy Barber MD PCP: Ann Marie Cassidy Status: REG ER Study: Chest 1 View (Portable) Date of Exam: 05/22/17 Exam# [id number] Ordering Dr: Angelo William MD STUDY: X-RAY [...] CC: Ann Marie Cassidy; Angelo William MD Grants Assistant: Signed 17-May-2017 Emergency Department Summary Result: Comments: See Note; NOTES: [facility] Medical Records Department [address] [place] [address] Emergency Department Summary 05/17/17 1543 MR#: [id number] Acct: [id number] Name: MAR MAHARAJ Rep #: [id number] : 1945 71 From: Tab Peacock MD [...] problems, contact your Primary Care Provider. Call [facility] ([phone]) or report to the closest Emergency Room. Call 911 if necessary. 05/17/17 1652 <Electronically signed b austin Peacock MD> Date Tab Peacock MD Cosigner Signature (If Indicated): Date CC: Ann Marie Cassidy 28-Apr-2017 Emergency Department Summary Result: Comments: See Note; NOTES: [facility] Medical Records Department [address] [place] [address] Emergency Department Summary 04/28/17 1059 MR#: [id number] Acct: [id number] Name: MAR MAHARAJ Rep #: [id number] : 1945 71 From: Tab Peacock MD [...] Primary Care Provider. Call Doctors [facility] ist[facility] ([phone]) or report to the closest Emergency Room. Call 911 if necessary. 04/28/17 1306 <Electronically signed by Tab Peacock MD> Date Tab Peacock MD Cosigner Signature (If Indicated): Date CC: Ann Marie Cassidy 28-Apr-2017 Chest 1 View (Portable) Result: Comments: See Note; NOTES: [facility] Imaging Services [address] [place] [address] Chest 1 View (Portable) MR#: [id number] Acct: [id number] Name: MAR MAHARAJ Rep #: [id number] : 1945 F 71 From: Sekou Bose DO PCP: Ann Marie Cassidy Status: REG ER Study: Chest 1 View (Portable) Date of Exam: 04/28/17 Exam# [id number] Ordering Dr: Tab Peacock MD STUDY: X-RAY [...] CC: Ann Marie Cassidy; Tab Peacock MD Grants Assistant: Signed 12-Apr-2017 Echocardiogram Complete Result: Comments: See Note; NOTES: [facility] Cardiovascular Services [address] [place] [address] Echo Complete 04/12/17 1150 MR#: [id number] Acct: [id number] Name: MAR MAHARAJ Rep #: [id number] : 1945 71 From: Sergio Lawler MD Attending Dr: Nuris ARAGON,Sergio Status: REG CLI Ordering Dr: Sergio Lawler MD Date: 04/12/17 Location: [facility] Sex: F C Admitted: Reason For Study: [...] Physician: Ann Marie Cassidy Performed By: Audra Nagy RDCS Electro nically signed by: Sergio Lawler MD on 04/12/2017 04:49 PM 04/12/17 1649 Date Sergio Lawler MD CC: Ann Marie Cassidy; Sergio Lawler MD Date Dictated: 04/12/17 1 150 Date Transcribed: 04/12/171648 Grants Assistant: Signed 13-Mar-2017 Finger(s) Min 2 Views Result: Comments: See Note; NOTES: [facility] Imaging Services [address] [place] [address] Verdana 4d Finger(s) Min 2 Views MR#: [id number] Acct: [id number] Name: MAR MAHARAJ Katy p #: [id number] : 1945 F 71 From: Maldonado Pablo DO PCP: Ann Marie Cassidy Status: REG CLI Study: Finger(s) Min 2 Views Date of Exam: 03/13/17 Exam# [id number] Ordering Dr: Libby Mai DO STUDY: X-RA [...] of acute osseous abnormality. Electronically Signed: Maldonado DO Samy at 22:01 EDT Tel [phone], Service support , CC: Ann Marie Mai DO Grants Assistant: Signed 15-Feb-2017 Cerv Spine 4 or 5 Views Result: Comments: See Note; NOTES: [facility] Imaging Services [address] [place] [address] Verdana 4d Cerv Spine 4 or 5 Views MR#: [id number] Acct: [id number] Name: MAR MAHARAJ Rep #: [id number] : 1945 F 71 From: Vitaly Turner MD PCP: Ann Marie Cassidy Status: REG CLI Study: Cerv Spine 4 or 5 Views Date of Exam: 02/15/17 Exam# [id number] Ordering Dr: De Yepez STUDY: X -RAY - CERVICAL SPINE [...] Service support , CC: Ann Marie YEPEZ Grants Assistant: Signed 14-Feb-2017 Spine Lumbar (Routine) Result: Comments: See Note; NOTES: [facility] Imaging Services [address] [place] [address] Anju 4d Spine Lumbar (Routine) MR#: [id number] Acct: [id number] Name: MAR MAHARAJ ep #: [id number] : 1945 F 71 From: Dylan Donato MD PCP: Ann Marie Cassidy Status: REG CLI Study: Spine Lumbar (Routine) Date of Exam: 02/14/17 Exam# [id number] Ordering Dr: Abdiel Betts MD LORENA DY: MRI LUMBAR SPINE WITHOUT CONTRAST REASON [...] CC: Ann Marie Cassidy; Abdiel Betts MD Grants Assistant: Signed 22-Jan-2017 Abdomen/Pelvis without Cont Result: Comments: See Note; NOTES: [facility] Imaging Services [address] [place] [address] Verdana 4d Abdomen/Pelvis without Cont MR#: [id number] Acct: [id number] Name: JOHN MAHARAJ Rep #: [id number] : 1945 F 71 From: Jeb Piedra MD PCP: Ann Marie Cassidy Status: REG ER Study: Abdomen/Pelvis without Cont Date of Exam: 01/22/17 Exam# [id number] Ordering Dr: Stacy Corey MD STUDY: CT [...] CC: Ann Marie Cassidy; Noelle Corey MD Grants Assistant: Signed 25-Dec-2016 Venous Duplex Lower Extremity Result: Comments: See Note; NOTES: [facility] Cardiovascular Services [address] [place] [address] Venous Duplex US, Unilateral 12/23/16 1042 MR#: [id number] Acct: [id number] Name: MAR DEAN Rep #: [id number] : 1945 71 From: David Hawthorne MD [...] Ann Marie Cassidy Performed By: Elizabeth Koehler, RDCS, RVT Electronical ly signed by: David Hawthorne MD on 12/25/2016 07:37 PM 12/25/161936 Date David Hawthorne MD CC: Ann Marie Cassidy; Glenn Ro Date Dictated: 12/23/16 1042 Date Transcribed: 12/25/161936 Grants Assistant: Signed 19-Dec-2016 Chest 1 View (Portable) Result: Comments: See Note; NOTES: [facility] Imaging Services [address] [place] [address] Verdana 4d Chest 1 View (Portable) MR#: [id number] Acct: [id number] Name: MAR MAHARAJ Rep #: [id number] : 1945 F 71 From: Alfa Bettencourt MD PCP: Ann Marie Cassidy Status: REG ER Study: Chest 1 View (Portable) Date of Exam: 12/19/16 Exam# [id number] Ordering Dr: Edin Rodriguez MD STUDY: X- [...] CC: Ann Marie Cassidy; Edin Rodriguez MD Grants Assistant: Signed 19-Dec-2016 Abdomen/Pelvis without Cont Result: Comments: See Note; NOTES: [facility] Imaging Services [address] [address] Verdana 4d Abdomen/Pelvis without Cont MR#: [id number] Acct: [id number] Name: JOHN MAHARAJ Rep #: [id number] : 1945 F 71 From: Alfa Bettencourt MD PCP: Ann Marie Cassidy Status: REG ER Study: Abdomen/Pelvis without Cont Date of Exam: 12/19/16 Exam# [id number] Ordering Dr: Edin Rodriguez MD S KARINEDY: CT ABDOMEN AND PELVIS WITHOUT CONTRAST REASON [...] the abdominal aorta, without a demonstrated aneurysm. Nga l inferior vena cava. Normal retroperitoneum. Normal [...] CC: Ann Marie Cassidy; Edin Rodriguez MD Grants Assistant: Signed 15-Dec-2016 Emergency Department Summary Result: Comments: See Note; NOTES: [facility] Medical Records Department [address] [place] [address] Emergency Department Summary MR#: [id number] Acct: [id number] Name: JOHN MAHARAJ Rep #: [id number] : 1945 71 From: Shon Amaya MD PCP: Ann Marie Cassidy Status: [...] IMPRESSION: Ascending colitis. Post-op left knee pain SHON AMAYA MD T: RUFUS JOB: [id number] 12/15/16 1522 <Electronically signed by Shon Amaya MD> Date Shon Amaya MD Cosigner Signature (If Indicated): Date CC: Ann Marie Cassidy Date Dictated: 12/13/162342 Date Transcribed: 12/13/162342 Grants Assistant: Signed 15-Dec-2016 12 Lead Electrocardiogram Result: Comments: See Note; NOTES: [facility] Cardiovascular Services [address] [place] [address] 12 Lead EKG 12/13/161602 MR#: [id number] Acct: [id number] Name: CAROL ANNMARSUDHA Burns p #: [id number] : 1945 71 From: Astrid Merlos MD Attending Dr: Status: DEP ER Ordering Dr: Shon Amaya MD Date: 12/13/16 Location: ED Sex: [...] , age undetermined Abnormal ECG Confirmed by ASTRID MERLOS ([id number]), editor city [place] (54) on 017 1:15:30 PM Referred By: JOSE LUIS Confirmed By:ASTRID MERLOS 12/15/16 1315 Date Astrid Merlos MD CC: Ann Marie Cassidy Date Dictated: 12/13/16 1603 Date Transcribed: 12/13/161602 Grants Assistant: Signed 14-Dec-2016 Venous Duplex Lower Extremity Result: Comments: See Note; NOTES: [facility] Cardiovascular Services [address] [place] [address] Venous Duplex US, Unilateral 12/13/16 1612 MR#: [id number] Acct: [id number] Name: MAR DEAN Rep #: [id number] : 1945 71 From: Rj Cleary MD Attending Dr: Status: DEP ER Ordering Dr: Shon Amaya MD Date: 12/13/16 Location: ED Sex: [...] correlation would be appropriate. _ Ordering Physician: Shon Amaya Referring Physician: Adair Wu Performed By: Deana Cherry RVT 12/14/16 0603 Date Rj Cleary MD CC: Ann Marie Cassidy; Shon Amaya MD Date Dictated: 12/13/16 1612 Date Transcribed: 12/14/16602 Grants Assistant: Signed 13-Dec-2016 Discharge Instruction Result: Comments: See Note; NOTES: [facility] Medical Records Department [address] [facility] [place] [address] Discharge Instruction 12/13/16 190 MR#: [id number] Acct: [id number] Name: CAROL ANNRadhaNellie Muñoz Rep #: [id number] : 1945 71 From: Shon Amaya MD PCP: Ann Marie Cassidy Status: [...] cont act your Primary Care Provider. Call [facility] ([phone]) or report to the closest Emergency Room. Call 911 if necessary. 12/13/162044 <Electronically signed by Shon Amaya MD&amp ;#62; Date Shon Amaya MD Cosigner Signature (If Indicated): Date CC: Ann Marie Cassidy 13-Dec-2016 Chest 1 View (Portable) Result: Comments: See Note; NOTES: [facility] Imaging Services [address] [place] [address] Verdana 4d Chest 1 View (Portable) MR#: [id number] Acct: [id number] Name: MAR MAHARAJ Rep #: [id number] : 1945 F 71 From: Trent Arias MD PCP: Ann Marie Cassidy Status: REG ER Study: Chest 1 View (Portable) Date of Exam: 12/13/16 Exam# [id number] Ordering Dr: Shon Amaya MD STUDY: X-RAY CHEST REASON FOR [...] MD at 17:07 EDT , Service support [phone], CC: Ann Marie Cassidy; Shon Amaya MD Grants Assistant: Signed 13-Dec-2016 Abdomen/Pelvis W IV Cont ONLY Result: Comments: See Note; NOTES: [facility] Imaging Services [address] [place] [address] Verdana 4d Abdomen/Pelvis W IV Cont ONLY MR#: [id number] Acct: [id number] Name: LILI MAHARAJ Rep #: [id number] : 1945 F 71 From: Trent Arias MD PCP: Ann Marie Cassidy Status: REG ER Study: Abdomen/Pelvis W IV Cont ONLY Date of Exam: 12/13/16 Exam# [id number] Ordering Dr: Shon Amaya MD STUDY: CT ABDOMEN AND PELVIS [...] MD at 18:25 EDT , Service support [phone], CC: Ann Marie Cassidy; Shon Amaya MD Grants Assistant: Signed 15-Nov-2016 History and Physical Exam Result: Comments: See Note; NOTES: [facility] Medical Records Department [address] [place] [address] History and Physical 11/09/16 1003 MR#: [id number] Acct: [id number] Name: Radha MAHARAJ Rep #: [id number] : 1945 71 From: Glenn Ro PCP: Ann Marie Cassidy Status: PRE IN Location: [facility] DATE OF SERVICE: 11/22/2016 This is Glenn [...] hip arthroplasty in 2003, Dr. Darien Avina, [facility]. 2. Hysterectomy. 3. Appendectomy. 4. Cholec ystectomy. 5. Brain surgery x2 Arnold-Chiari malformation. 6. Carpal tunnel bilaterally. 7. Cervical surgery, December 2013 at [place]. 8. Right total knee arthroplasty on August 19, 2014, Dr. Darien Avina , [facility]. 9. Laminectomy 2000, instrumentation lumbar fusion. 10. Right total hip arthroplasty in 2013, revision assistive devices. The patient admits to full upper dentures. Denies glasses or hearing aids. SOCIAL HISTORY: The patient is retired, works part-time. Denies tobacco use, denies alcohol use, denies illicit drug use. REVIEW OF SYSTEMS: Documented in the [facility] medical hi story sheet, please refer to [...] of left knee dated October 17, 2016, [facility], weightbearing, AP, tunnel, sunrise, lateral views with [...] and signed the appropriate surgery consent fo rm. The patient's stay will be greater than 2 midnights and plan is for discharge to home upon leaving the hospital. YADIRA Narvaez T: RUFUS JOB: [id number] 11/15/16 0839 <Electronically signed by Glenn Ro > Date: Time: Glenn Ro CC: Ann Marie Cassidy; Glenn Ro Date Dictated: 11/09/16 1003 Date Transcribed: 7 1003 Grants Assistant: Signed ____ I have re-examined the patient. There are no clinical changes since date of exam. ____ See Progress Notes for Changes ____ Dictated on Admission Date: ___ Time: Signature: 24-Oct-2016 History and Physical Exam Result: Comments: See Note; NOTES: [facility] Medical Records Department [address] [place] [address] History and Physical 10/19/16 1537 MR#: [id number] Acct: [id number] Name: Radha MAHARAJ Rep #: [id number] : 1945 71 From: lGenn Ro PCP: Ann Marie Cassidy Status: PRE IN Location: [facility] DATE OF SERVICE: 10/25/2016 This is YADIRA [...] a previous right total knee arthroplasty in [facility] er 2013, is very pleased with [...] arthroplasty i n 2003, Dr. Darien Avina, [facility]. 2. Hysterectomy. 3. Appendectomy. 4. Cholecystectomy. 5. Brain surgery x2. Arnold-Chiari malformation. 6. Carpal tunnel bilaterally. 7. Cervical surgery in ril 2013 in [place]. 8. Right total knee arthroplasty on August 19, 2014, Dr. Darien Avina, [facility]. 9. Laminectomy 2001 instrumentation, lumbar fusion. 10. Right total hip arthroplasty in 2013 , revision. ASSISTIVE DEVICES: The patient admits to full upper dentures. Denies glasses or hearing aids. SOCIAL HISTORY: The patient is retired, but works part-time. She denies tobacco use, denies al cohol use, denies illicit drug use. REVIEW OF SYSTEMS: Documented in the [facility] medical history sheet. Please refer to attached [...] X-rays of l eft knee dated 10/17/2016, [facility], weightbearing, AP, tunnel, [...] Ro Date Dictated: 10/19/161536 Date Transcribed: 10/19/161536 Grants Assistant: Toni igned ____ I have re-examined the patient. There are no clinical changes since date of exam. ____ See Progress Notes for Changes ____ Dictated on Admission Date: Time: Sig nature: 23-Oct-2016 Chest PA and Lateral Result: Comments: See Note; NOTES: [facility] Imaging Services [address] [place] [address] Verdana 4d Chest PA and Lateral MR#: [id number] Acct: [id number] Name: MAR MAHARAJ Rep #: [id number] : 1945 F 71 From: Heraclio Meredith MD PCP: Ann Marie Cassidy Status: PRE ER Study: Chest PA and Lateral Date of Exam: 10/23/16 Exam# [id number] Ordering Dr: Edin Horton MD STUDY: X-RAY [...] MD at 14:44 EST , Service support [phone], CC: Mary Cassidy; Edin Horton MD Grants Assistant: Signed 23-Sep-2016 Echocardiogram Complete Result: Comments: See Note; NOTES: [facility] Cardiovascular Services [address] [place] [address] Echo Complete 09/23/16 1311 MR#: [id number] Acct: [id number] Name: MAR MAHARAJ Rep #: [id number] : 1945 71 From: Sergio Lawler MD [...] 60 %. Left ventricular systolic function is nga l. Mild (1+) tricuspid valve insufficiency. Pulmonary artery systolic pressure is 30 mmHg. Mild (1+) eccentric aortic valve insufficiency. Ordering Physician: Sergio Lawler Referring Physician: Adair Wu Performed By: Elizabeth Koehler, RDCS, RVT Electronically signed by: Sergio Lawler MD on 03:21 PM 09/23/16 1521 Date Sergio Lawler MD CC: Ann Marie Cassidy; Sergio Lawler MD Date Dictated: 09/23/16 1311 Date Transcribed: 09/23/16 1521 Grants Assistant: Signed 21-Sep-2016 12 Lead Electrocardiogram Result: Comments: See Note; NOTES: [facility] Cardiovascular Services [address] [place] [address] 12 Lead EKG 09/18/16 1204 MR#: [id number] Acct: [id number] Name: MAR MAHARAJ Katy p #: [id number] : 1945 71 From: Cade Harrison MD Attending Dr: Status: DEP ER [...] undetermined Abnormal ECG Confirmed by OMAR ARAGON, CADE ([id number]), editor city [place] (54) on 09/21/2016 1:40:15 PM Referred By: FLORIN Confirmed By:CADE HARRISON MD 09/21/16 1340 Date Cade Harrison MD CC: Ann Marie Cassidy Date Dictated: 09/18/16 1204 Date Transcribed: 09/18/16 1204 Grants Assistant: Signed 20-Sep-2016 Emergency Department Summary Result: Comments: See Note; NOTES: [facility] Medical Records Department [address] [place] [address] Emergency Department Summary MR#: [id number] Acct: [id number] Name: JOHN MAHARAJ Rep #: [id number] : 1945 71 From: Edin Rodriguez MD [...] encouraged to follow up with Ann Marie Cassidy, return with any problems. Return instructions were given. CLINICAL IMPRESSION: Bronch itis, possible early pneumonia. DISPOSITION: Home. Edin Rodriguez MD C C: Ann Marie Cassidy T: NTS JOB: [id number] 09/20/16 1522 <Electronically signed by Edin Rodriguez MD> Date __ Edin Rodriguez MD Cosigner Signature (If Indicated): Date CC: Ann Marie Cassidy Date Dictated: 09/18/16 1339 Date Trans cribed: 09/18/16 1339 Grants Assistant: Signed 18-Sep-2016 Discharge Instruction Result: Comments: See Note; NOTES: [facility] Medical Records Department [address] [place] [address] Discharge Instruction 09/18/16 1334 MR#: [id number] Acct: [id number] Name: Radha MAHARAJ Rep #: [id number] : 1945 71 From: Edin Rodriguez MD [...] problems, contact your Primary Care Provider. Call [facility] ([phone]) or report to the closest Emergency Room. Call 911 if necessary. 09/18/16 1336 & #60;Electronically signed by Edin Rodriguez MD> Date Edin Rodriguez MD Cosigner Signature (If Indicated): Date CC: Ann Marie Khanh 18-Sep-2016 Chest PA and Lateral Result: Comments: See Note; NOTES: [facility] Imaging Services [address] [place] [address] Verdana 4d Chest PA and Lateral MR#: [id number] Acct: [id number] Name: CAROL ANNMAR S Rep #: [id number] : 1945 F 71 From: Rolly Aviles MD PCP: Ann Marie Cassidy Status: REG ER Study: Chest PA and Lateral Date of Exam: 09/18/16 Exam# [id number] Ordering Dr: Edin Rodriguez MD STUDY: X-RAY [...] 13:29 EST Te l , Service support [phone], CC: Ann Marie Cassidy; Edin Rodriguez MD Grants Assistant: Signed 17-Aug-2016 Knee 4 or More Views Result: Comments: See Note; NOTES: [facility] Imaging Services [address] [place] [address] Verdana 4d Knee 4 or More Views MR#: [id number] Acct: [id number] Name: MAR MAHARAJ Rep #: [id number] : 1945 F 71 From: Florian Valenzuela MD PCP: Davian Mccray Status: REG CLI Study: Knee 4 or More Views Date of Exam: 08/17/16 Exam# [id number] Ordering Dr: Gemma Nina MD STUD Y: [...] Florian Valenzuela MD at 15:48 EST Tel [phone], Service support [phone], CC: Tejal Mccray; Gemma Nina MD Grants Assistant: Signed 17-Aug-2016 Tibia AND Fibula 2 Views Result: Comments: See Note; NOTES: [facility] Imaging Services [address] [place] [address] Verdana 4d Tibia AND Fibula 2 Views MR#: [id number] Acct: [id number] Name: MAR MAHARAJ Rep #: [id number] : 1945 F 71 From: Florian Valenzuela MD PCP: Davian Mccray Status: REG CLI Study: Tibia AND Fibula 2 Views Date of Exam: 08/17/16 Exam# [id number] Ordering Dr: Gemma Nina STUDY: X-RAY - [...] Florian Valenzuela MD at 15:42 EST Tel [phone], Service support [phone], CC: Davian Nina MD Grants Assistant: Signed 01-Jul-2016 Venous Duplex Lower Extremity Result: Comments: See Note; NOTES: [facility] Cardiovascular Services [address] [place] [address] Venous Duplex US, Unilateral 07/01/16 0850 MR#: [id number] Acct: [id number] Name: MAR MAHARAJ Rep #: [id number] : 1945 70 From: David Hawthorne MD Attending Dr: Luly Noriega [employer] Status: REG CLI Ordering Dr: Luly Noriega [employer]-C Date: 07/01/16 Location: [facility] Sex: F C [...] called and/or faxed augmentation. to Luly Noriega [employer] @ 9:20 am @ [facility] is [...] Date David Hawthorne MD CC: Luly Noriega; Davianjosephine Hernandezmary Date Dictated: 07/01/16 0850 Date Transcribed: 07/01/161936 Grants Assistant: Signed 07-Jun-2016 6 Minute Walk Test Result: Comments: See Note; NOTES: [facility] Pulmonary Services/Neurology [address] [place] [address] MR#: [id number] Acct: [id number] Name: MAR MAHARAJ Rep #: [id number] : 1945 70 From: Adair Wu MD Referring Dr: Luly Noriega NP Date: Ordering Dr: Sex: F C Location: PSN PSN 6 Minute Walk Test - 6 Minute Walk Test 6 Minute Walk Test: 6 Minute Walk Test PSN:6-Minute Walk Test Start: 06/07/16 11:18 Freq: Status: Active Document 06/07/16 11:18 REK (Rec: 06/07/16 11:21 REK [id number]) 6 Minute Walk Test Date Performed 06/07/16 [...] CC: Date Dictated: 06/07/161540 Date Transcribed: 06/07/161540 Grants Assistant: Adair Wu Signed 25-Apr-2016 Chest PA and Lateral Result: Comments: See Note; NOTES: [facility] Imaging Services [address] [place] [address] Verdana 4d Chest PA and Lateral MR#: [id number] Acct: [id number] Name: MAR MAHARAJ Re p #: [id number] : 1945 F 70 From: Stephen Walton DO PCP: Davian Mccray Status: REG ER Study: Chest PA and Lateral Date of Exam: 04/25/16 Exam# [id number] Ordering Dr: Cristhian Mandujano MD STUDY: X-R [...] Stephen Walton DO at 20:12 EDT Tel [phone], Service support [phone], CC: CRISTHIAN MANDUJANO MD; Davian Mccray Grants Assistant: Signed 25-Apr-2016 Abdomen/Pelvis without Cont Result: Comments: See Note; NOTES: [facility] Imaging Services [address] [facility] [place] [place] [address] Verdana 4d Abdomen/Pelvis without Cont MR#: [id number] Acct: [id number] Name: GABE MAHARAJ S Rep #: [id number] : 1945 F 70 From: Stephen Walton DO PCP: Davian Mccray Status: REG ER Study: Abdomen/Pelvis without Cont Date of Exam: 04/25/16 Exam# [id number] Ordering Dr: Cristhian Mandujano MD STUDY: CT [...] Stephen Walton DO at 19:00 EDT Tel [phone], Service support [phone], CC: CRISTHIAN MANDUJANO MD; Davian Mccray Grants Assistant: Signed 12-Mar-2016 Emergency Department Summary Result: Comments: See Note; NOTES: [facility] Medical Records Department [address] [place] [address] Emergency Department Summary MR#: [id number] Acct: [id number] Name: MAR MAHARAJ Rep #: [id number] : 1945 70 From: Darien Warren MD [...] contusion. Darien Warren MD T: NTS JOB: [id number] 03/12/16 0306 <Electronically signed by Darien Warren MD> Date Darien Warren MD Cosigner Signature (If Indicated): Date CC: Davian Mccray Date Dictated: 2326 Date Transcribed: 03/10/162326 Grants Assistant: Signed 10-Mar-2016 Discharge Instruction Result: Comments: See Note; NOTES: [facility] Medical Records Department [address] [place] [address] Discharge Instruction 03/10/162006 MR#: [id number] Acct: [id number] Name: MAR MAHARAJ Rep #: [id number] : 1945 70 From: Darien Warren MD PCP: Davian Mccray Status: REG ER ED Disposition - Plan for ED Patient: Chief Complaint: Lower Extremity Injury Instructions: ED Hip Contusion Referrals: Davian Mccray [Primary Care Provider] - 3-5 Days if not improving What to do if you have Problems For any increased pain, shortness of breath, bleeding, n ausea or vomiting, chest pain, or any unexpected problems, contact your doctor. Call [facility] ([phone]) or report to the closest Emergency Room. Call 911 if necessary. 03/10/162007 <Electronically signed by Darien Warren MD> Date Darien Warren MD Cosigner Signature (If Indicated): Date CC: Davian Mccray 10-Mar-2016 Hip 2-3 Views with Pelvis Result: Comments: See Note; NOTES: [facility] Imaging Services [address] [place] [address] Verdana 4d Hip 2-3 Views with Pelvis MR#: [id number] Acct: [id number] Name: MAR DEAN Rep #: [id number] : 1945 F 70 From: Robles Mejia PCP: Davian Mccray Status: [facility] ER Study: Hip 2-3 Views with Pelvis Date of Exam: 03/10/16 Exam# [id number] Ordering Dr: Carlos Eduardo Warren MD STUDY: [...] MejiaDO at 19:47 EDT , Service support [phone], RAD/Hip 2-3 Views with Pelvis IMPRESSION: Hip joint space narrowing. Stable degenerative changes left hip. No fracture or dislocation. Electronically Signed: Roblessawyer MejiaDO a t 19:47 EDT , Service support [phone], CC: Darien Warren MD; Davian Mccray Grants Assistant: Signed 25-Jan-2016 ELECTROCARDIOGRAM, COMPLETE (ECG) (13889) Result: [MEASUREMENTS ANALYSIS] Date of Test: 01/25/2016 11:29:25; Heart Rate: 71; W[place] Interval: 168; QRS: 86; QT Interval: 386; Corrected QT Interval (QTc): 405; P Wave Dalton: 46; QRS Wave Dalton: 5; T Wave Dalton: 22; Blood Pressure: 124/78 [ECG DIAGNOSTIC STATEMENTS] Date of Test: 01/25/2016 11:29:25; Summary: Sinus Rhythm -Anteroseptal infarct -age undetermined -Old inferior infarct. ABNORMAL 25-Jan-2016 Pelvis 1 or 2 Views Result: Comments: See Note; NOTES: [facility] Imaging Services [address] [place] [address] Verdana 4d Pelvis 1 or 2 Views MR#: [id number] Acct: [id number] Name: Radha MAHARAJ Rep #: [id number] : 1945 F 70 From: Doroteo Salgado MD PCP: Davian Mccray Status: REG CLI Study: Pelvis 1 or 2 Views Date of Exam: 01/25/16 Exam# [id number] Ordering Dr: Yadira Nina dma, MD STUDY: [...] at 16 :50 EDT , Service support [phone], RAD/Pelvis 1 or 2 Views IMPRESSION: Focus [...] at 16:50 EDT , Service suppor t [phone], CC: Davian Mccray; Gemma Nina MD Grants Assistant: Signed 19-Nov-2015 Vert Fx Asess/Lat Bone Den(H) Result: Comments: See Note; NOTES: [facility] Imaging Services [address] [place] [address] Verdana 4d Vert Fx Asess/Lat Bone Den(H) MR#: [id number] Acct: [id number] Luciano e: MAR MAHARAJ Rep #: [id number] : 1945 F 70 From: Florian Valenzuela MD PCP: Davian Mccray Status: REG CLI Study: Vert Fx Asess/Lat Bone Den(H) Date of Exam: 11/19/15 Exam# [id number] Chucho ering Dr: Davian Mccray STUDY: DUAL ENERGY X-RAY [...] Florian Valenzuela MD at 8:52 EDT Tel [phone], Service support [phone], CC: Davian Mccray Grants Assistant: Signed 19-Nov-2015 Bilat Scrn Digital AND CAD Result: Comments: See Note; NOTES: [facility] Imaging Services [address] [place] [address] Verdana 4d Bilat Scrn Digital AND CAD MR#: [id number] Acct: [id number] Name: MAR MAHARAJ Rep #: [id number] : 1945 F 70 From: Florian Valenzuela MD PCP: Davian Mccray Status: REG CLI Study: Bilat Scrn Digital AND CAD Date of Exam: 11/19/15 Exam# [id number] Ordering Dr: Davian Mccray MAMMOGRAPHY - BILATERAL [...] Florian Valenzuela MD at 10:06 EDT Tel [phone], Service support [phone], CC: Davian Mccray Grants Assistant: Signed 19-Nov-2015 Bilat Scrn Digital AND CAD Result: Comments: See Note; NOTES: [facility] Imaging Services [address] [place] [address] Verdana 4d Bilat Scrn Digital AND CAD MR#: [id number] Acct: [id number] Name: MAR MAHARAJ Rep #: [id number] : 1945 F 70 From: Florian Valenzuela MD PCP: Davian Mccray Status: REG CLI Study: Bilat Scrn Digital AND CAD Date of Exam: 11/19/15 Exam# [id number] Ordering Dr: Davian Mccray MAMMOGRAPHY - BILATERAL [...] Florian Valenzuela MD at 10:06 EDT Tel [phone], Service support [phone], CC: Davian Mccray Grants Assistant: Signed 19-Nov-2015 Dexa Bone Density Study (HP) Result: Comments: See Note; NOTES: [facility] Imaging Services [address] [place] [address] Verdana 4d Dexa Bone Density Study () MR#: [id number] Acct: [id number] Name : MAR MAHARAJ Rep #: [id number] : 1945 F 70 From: Florian Valenzuela MD PCP: Davian Mccray Status: [facility] Study: Dexa Bone Density Study () Date of Exam: 11/19/15 Exam# [id number] Order ing Dr: Davian Mccray STUDY: DUAL [...] Florian Valenzuela MD at 12:53 EDT Tel [phone], Service support [phone], F ax [phone] CC: Davian Mccray Grants Assistant: Signed 19-Nov-2015 Thyroid Result: Comments: See Note; NOTES: [facility] Imaging Services [address] [place] [address] Verdana 4d Thyroid MR#: [id number] Acct: [id number] Name: MAR MAHARAJ Rep #: [id number] : 1945 F 70 From: Stephen Walton DO PCP: Davian Mccray Status: REG CLI Study: Thyroid Date of Exam: 11/19/15 Exam# [id number] Ordering Dr: Davian Mccray STUDY: THYROID ULTRASOUN [...] Stephen Walton DO at 16:48 EDT Tel [phone], Service support [phone], CC: Davian Mccray Grants Assistant: Signed 17-Dec-2014 Cerv Spine 2 or 3 Views Result: Comments: See Note; NOTES: [facility] Imaging Services [address] [place] [address] Radiology Report MR#: [id number] Acct: [id number] Name: MAR MAHARAJ Rep #: [id number] : 1945 F 69 From: Vitaly Turner MD PCP: Libby Mai DO Status: REG CLI Study: Cerv Spine 2 or 3 Views Date of Exam: 12/17/14 Exam# [id number] Ordering Dr: De Yepez STUDY: X-RAY - CERVICAL SPINE REASON [...] at 11:32 EDT Tel , Service support [phone], 0045 RAD/Cerv Spine 2 or 3 Views IMPRESSION: Status post anterior fusion from C3-C6, with 3 mm extrusion of the C6 screw. Loss of the normal lordosis. No signs of instability. Electronically Signed: Vitaly Turner MD, FACR at 11:32 EDT , Service support [phone], CC: DE YEPEZ; Libby Mai DO Grants Assistant: Signed 17-Dec-2014 Spine Cervical (Routine) Result: Comments: See Note; NOTES: [facility] Imaging Services [address] [place] [address] MRI Report MR#: [id number] Acct: [id number] Name: MAR MAHARAJ Rep #: [id number] : 1945 F 69 From: Vitaly Turner MD PCP: Libby Mai DO Status: REG CLI Study: Spine Cervical (Routine) Date of Exam: 12/17/14 Exam# [id number] Ordering Dr: De Yepez STUDY: MRI CERVIC AL SPINE WITHOUT [...] FACR at 11:15 EDT , Service support [phone], CC: DE YEPEZ; Libby Mai DO Grants Assistant: Signed 15-Dec-2014 Thyroid Result: Comments: See Note; NOTES: [facility] Imaging Services [address] [place] [address] Ultrasound Report MR#: [id number] Acct: [id number] Name: MAR MAHARAJ Rep #: [id number] : 1945 F 69 From: Stephen Walton DO PCP: Libby Mai DO Status: REG CLI Study: Thyroid Date of Exam: 12/15/14 Exam# [id number] Ordering Dr: Lisa Garcia MD STUDY: THYROID ULTRASOUND REASON FOR EXAM: [...] change when compared to the previous study. Dennysall y Signed: Stephen Walton DO at 13:38 EDT Tel [phone], Service support [phone], CC: Libby Mai DO; Lisa Garcia MD Grants Assistant: Signed 17-Nov-2014 Bilat Scrn Digital AND CAD Result: Comments: See Note; NOTES: [facility] [facility] Imaging Services [address] [facility] [place] [address] Breast Imaging Report MR#: [id number] Acct: [id number] Name: MAR MAHARAJ Rep #: [id number] : 1945 F 69 From: Alfa Bettencourt MD PCP: Libby Mai DO Status: REG CLI Study: Bilat Scrn Digital AND CAD Date of Exam: 11/17/14 Exam# [id number] Ordering Dr: Libby Mai DO MAMMOGR APHY [...] of a clinically suspicious abnormality. Electronically Signed: dEdie Bettencourt MD at 12:06 EDT Tel , Service support [phone], CC: Libby Mai DO Grants Assistant: Signed 17-Nov-2014 Chest without Contrast Result: Comments: See Note; NOTES: [facility] Imaging Services [address] [place] [address] CAT Scan Report MR#: [id number] Acct: [id number] Name: MAR MAHARAJ Rep #: [id number] : 1945 F 69 From: Alfa Bettencourt MD PCP: Libby Mai DO Status: REG CLI Study: Chest without Contrast Date of Exam: 11/17/14 Exam# [id number] Ordering Dr: Lbiby Mai DO STUDY: CT CHEST W ITHOUT [...] at 10:21 EDT Tel , Service support [phone], CC: Libby Mai DO Grants Assistant: Signed 23-Sep-2014 Brain/Head without Contrast Result: Comments: See Note; NOTES: [facility] Imaging Services [address] [place] [address] CAT Scan Report MR#: [id number] Acct: [id number] Name: MAR MAHARAJ Rep #: [id number] : 1945 F 69 From: Parminder Rashid MD PCP: Libby Mai DO Status: REG ER Study: Brain/Head without Contrast Date of Exam: 09/23/14 Exam# [id number] Ordering Dr: Rachel Avina MD STUDY: CT [...] MD at 21:19 EST , Service support [phone], CC: Libby Mai DO; Rachel Avina MD Grants Assistant: Signed 23-Sep-2014 Spine Cervical without Contras Result: Comments: See Note; NOTES: [facility] Imaging Services [address] [facility] [place] [address] CAT Scan Report MR#: [id number] Acct: [id number] Name: MAR MAHARAJ Rep #: [id number] : 1945 F 69 From: Parminder Rashid MD PCP: Libby Mai DO Status: REG ER Study: Spine Cervical without Contras Date of Exam: 09/23/14 Exam# [id number] Ordering Dr: Rachel Avina MD LORENA DY: [...] MD at 21:25 EST , Service support [phone], CC: Libby Mai DO; Rachel Avina MD Grants Assistant: Signed 21-Aug-2014 Discharge Instruction Result: Comments: See Note; NOTES: [facility] Medical Records Department [address] [place] [address] Instructions for Home/Discharge Instructions 08/21/14 1712 MR#: [id number] Acc t: [id number] Name: MAR MAHARAJ Rep #: [id number] : 1945 69 From: Galo Antonio PA-C [...] needed. Additional Instructions: F/U APPT S PER [facility] POST-OP INSTRUCTIONS F/U WITH GLENN RO 09/03/14 9:15 AM PHYSICAL THERAPY APPT WITH CADE @ [facility] 08/25/14 @ 9:00 AM, WILL HAVE TO [...] Please Follow Up With: Glenn Ro 08/21/14 7416 <Electronically signed by Galo Antonio PA-C> Date ___ Galo Antonio PA-C CC: Libby Mai DO 19-Aug-2014 Knee 1 or 2 Views Result: Comments: See Note; NOTES: [facility] Imaging Services [address] [place] [address] Radiology Report MR#: [id number] Acct: [id number] Name: MAR MAHARAJ Rep #: [id number] : 1945 F 69 From: Bakari Kenny MD PCP: Libby Mai DO Status: ADM IN Study: Knee 1 or 2 Views Date of Exam: 08/19/14 Exam# [id number] Ordering Dr: Darien Avina MD STUDY: X-RAY [...] MD at 16:29 EST , Service support [phone], CC: Libby Mai DO; Darien Avina MD Grants Assistant: Signed 12-Aug-2014 History and Physical Exam Result: Comments: See Note; NOTES: [facility] Medical Records Department [address] [place] [address] History and Physical 08/11/14 1334 MR#: [id number] Acct: [id number] Name: MAR MAHARAJ Rep #: [id number] : 1945 69 From: Glenn Ro PCP: Libby Mai DO Status: PRE IN Location: [facility] DATE OF SERVICE: 08/19/2014 PRIMARY CARE PROVIDER: [...] b.i.d. REVIEW OF SYSTEMS: Documented in the [facility] medical history sheet. Please refer to the [...] of right knee dated May 30, 2014, [facility], weightbearing, AP, tunnel, [...] above- stated procedure and signed the appropriate loi meera consent form. YADIRA Narvaez T: RUFUS JOB: [id number] 08/12/14 0740 <Electronically signed by Glenn Ro > Date: Time: Glenn Ro CC: Glenn Mai DO Date Dictated: 08/11/141333 Date Transcribed: 08/11/141333 Grants Assistant: Signed ____ I have re-examined the patient. There a re no clinical changes since date of exam. ____ See Progress Notes for Changes ____ Dictated on Admission Date: Time: Signature: 23-May-2014 Hip min 2 Views Result: Comments: See Note; NOTES: [facility] Imaging Services [address] [place] [address] Radiology Report MR#: [id number] Acct: [id number] Name: MAR MAHARAJ Rep #: [id number] : 1945 F 68 From: Florian Valenzuela MD PCP: Libby Mai DO Status: REG CLI Study: Hip min 2 Views Date of Exam: 05/23/14 Exam# [id number] Ordering Dr: Libby Mai DO STUDY: X-RAY [...] Florian Valenzuela MD at 9:41 EDT Tel [phone], Service support [phone], CC: Libby Mai DO Grants Assistant: Signed 23-May-2014 Knee 4 or More Views Result: Comments: See Note; NOTES: [facility] Imaging Services [address] [place] [address] Radiology Report MR#: [id number] Acct: [id number] Name: MAR MAHARAJ Rep #: [id number] : 1945 F 68 From: Florian Valenzuela MD PCP: Libby Mai DO Status: REG CLI Study: Knee 4 or More Views Date of Exam: 05/23/14 Exam# [id number] Ordering Dr: Libby Mai DO STUDY: X- [...] Florian Valenzuela MD at 9:42 EDT Tel [phone], Service support [phone], CC: Libby Mai DO Grants Assistant: Signed 02-May-2014 Chest without Contrast Result: Comments: See Note; NOTES: [facility] Imaging Services [address] [place] [address] CAT Scan Report MR#: [id number] Acct: [id number] Name: MAR MAHARAJ Rep #: [id number] : 1945 F 68 From: Cristhian Spears MD PCP: Libby Mai DO Status: REG CLI Study: Chest without Contrast Date of Exam: 05/02/14 Exam# [id number] Ordering Dr: Libby Mai DO STUDY: CT [...] at 15:32 EDT Tel , Service support [phone], CC: Libby Mai DO Grants Assistant: Signed 02-May-2014 Thyroid Result: Comments: See Note; NOTES: [facility] Imaging Services [address] [place] [address] Ultrasound Report MR#: [id number] Acct: [id number] Name: MAR MAHARAJ Rep #: [id number] : 1945 F 68 From: Stephen Walton DO PCP: Libby Mai DO Status: REG CLI Study: Thyroid Date of Exam: 05/02/14 Exam# [id number] Ordering Dr: Libby Mai DO STUDY: THYROID [...] Stephen Walton DO at 19:17 EDT Tel [phone], Service support [phone], CC: Libby Mai DO Grants Assistant: Signed 27-Feb-2014 L/S Spine Min 4 Views Result: Comments: See Note; NOTES: [facility] Imaging Services [address] [place] [address] Radiology Report MR#: [id number] Acct: [id number] Name: MAR MAHARAJ Rep #: [id number] : 1945 F 68 From: Florian Valenzuela MD PCP: Libby Mai DO Status: REG CLI Study: L/S Spine Min 4 Views Date of Exam: 02/27/14 Exam# [id number] Ordering Dr: De Yepez STUDY: X-R AY - LUMBAR SPINE [...] Florian Valenzuela MD at 10:31 EDT Tel [phone], Service support [phone], RAD/L/S Spine Min 4 Views IMP RESSION: The patient is status post laminectomy and fusion at the L3-L4 and L4- L5 levels with bone graft and bone stimulator. Grade 2 anterolisthesis of L4 on L5. Electronically Signed: Florian khan MD at 10:31 EDT Tel [phone], Service support [phone], CC: DE YEPEZ; Libby Mai DO Grants Assistant: Signed 27-Feb-2014 Spine Lumbar (Routine) Result: Comments: See Note; NOTES: [facility] Imaging Services [address] [place] [address] MRI Report MR#: [id number] Acct: [id number] Name: MAR MAHARAJ Rep #: [id number] : 1945 F 68 From: Angus Arreola PCP: Libby Mai DO Status: REG CLI Study: Spine Lumbar (Routine) Date of Exam: 02/27/14 Exam# [id number] Ordering Dr: De Yepez STUDY: MRI LUMBAR S PINE WITHOUT [...] MD at 7:48 EDT , Service support [phone], CC: DE Mai DO Grants Assistant: Signed 10-Feb-2014 Cerv Spine 2 or 3 Views Result: Comments: See Note; NOTES: [facility] Imaging Services [address] [facility] [place] [address] Radiology Report MR#: [id number] Acct: [id number] Name: MAR MAHARAJ Rep #: [id number] : 1945 F 68 From: Florian Valenzuela MD PCP: Libby Mai DO Status: REG CLI Study: Cerv Spine 2 or 3 Views Date of Exam: 02/10/14 Exam# [id number] Ordering Dr: De Yepez STUDY: X -RAY - CERVICAL SPINE REASON FOR EXAM: Female, 68 years old. Status post surgical fusion. TECHNIQUE: Lateral as well as flexion and extension views of the cervical spine view(s) were obtained. CO MPARISON: None FINDINGS: There are degenerative changes of the anterior atlantoaxial articulation. Normal odontoid process. There is straightening of the nga l cervical lordosis. The patient is status [...] Florian Valenzuela MD at 15:54 EDT Tel [phone], Service support [phone], RAD/Cerv Spine 2 or 3 Views IMPRESSION: Status post anterior fu tamika at the C3-C4, C4-C5 and C5-C6 levels. No abnormal movement occurs between the vertebral segments. Electronically Signed: Florian Valenzuela MD at 15:54 EDT Tel [phone], Service support [phone], CC: DE YEPEZ; Libby Mai DO Grants Assistant: Signed 13-Jan-2014 Echocardiogram Complete Result: Comments: See Note; NOTES: [facility] Cardiovascular Services [address] [place] [address] Echo Complete 01/10/14 1155 MR#: [id number] Acct: [id number] Name: LESLY MAHARAJ Rep #: [id number] : 1945 68 From: Sergio Lawler MD Attending Dr: Nuris ARAGON,Sergio Status: REG CLI Ordering Dr: Sergio Lawler MD Date: 01/10/14 Location: [facility] Sex: F C Admitted: [facility] This was a 2D Doppler, Color Flow [...] Dictated: 01/10/14 1155 Date Transcribed: 01/13/14 1103 Grants Assistant: Signed 20-Jun-2013 Valeri Thrasher Digital & CAD Result: Comments: See Note; NOTES: [facility] Imaging Services [address] [place] [address] Breast Imaging Report MR#: [id number] Acct: [id number] Name: MAR MAHARAJ Rep #: [id number] : 1945 F 67 From: Florian Valenzuela MD PCP: Status: REG CLI Exam# [id number] Ordering Dr: Libby Mai DO MAMMOGRAPHY - [...] 20, 2013 at 9: 52:55 AM EDT [phone] Electronically Signed GP/GP If you are the referring physician and would like to consult with the radiologist who provided this interpretation, please contact Florian Valenzuela M.D. at [phone]. If this radiologist is unavailable, you will be directed to another radiologist to assist. If you are a patient with a question regarding this report, please contact your referring physician directly. Professional Interpretation Provided By: [facility], Phone , These documents contain legally protected [...] return or destruction of these documents. CC: Hari Mai DO Grants Assistant: Signed 20-Jun-2013 Dexa Bone Density Study (HP) Result: Comments: See Note; NOTES: [facility] Imaging Services [address] [place] [address] Bone Density Report MR#: [id number] Acct: [id number] Name: MAR MAHARAJ Rep #: [id number] : 1945 F 67 From: Florian Valenzuela MD PCP: Status: [facility] Study: Dexa Bone Density Study (HP) Date of Exam: 06/20/13 Exam# [id number] Ordering Dr: Libby Mai DO STUDY: DUAL [...] angel luis mbar spine. On the lateral hypertrichologist view, there is evidence of loss of [...] June 20, 2013 at 10:14:39 AM EDT [phone] Electronically Signed GP/GP If you are the referring physician and would like to consult with the radiologist who provided this interpretation, please contact Florian Valenzuela M.D. at [phone]. If this radiologist is unavailable, you will be directed to another radiologist to assist. If you are a patient with a question regarding this report, plea se contact your referring physician directly. Professional Interpretation Provided By: [facility], Phone , These documents contain legally protected [...] of these documents. CC: Libby Mai DO Grants Assistant: Signed 06-Jun-2013 Chest without Contrast Result: Comments: See Note; NOTES: [facility] Imaging Services [address] [place] [address] CAT Scan Report MR#: [id number] Acct: [id number] Name: MAR MAHARAJ Rep #: [id number] : 1945 F 67 From: Florian Valenzuela MD PCP: Status: REG CLI Study: Chest without Contrast Date of Exam: 06/06/13 Exam# [id number] Ordering Dr: Libby Mai DO STUDY: CT [...] June 06, 2013 at 10:07:38 AM EDT [phone] Electronically Signed GP/GP If you are the referring physician and would like to consult with the radiologist who provided this interpretation, please contact Florian Valenzuela M.D. at [phone]. If this radiologist is unavailable, you will be directed to another radiologist to assist. If you are a patient with a question regarding this report, please contact your referring physician directly. Professional Interpretation Provided By: [facility], Phone , These documents contain legally protected [...] of these documents. CC: Libby Mai DO Grants Assistant: Signed 06-Jun-2013 Chest without Contrast Result: Comments: See Note; NOTES: [facility] Imaging Services [address] [place] [address] CAT Scan Report MR#: [id number] Acct: [id number] Name: MAR MAHARAJ Rep #: [id number] : 1945 F 67 From: Florian Valenzuela MD PCP: Status: REG CLI Study: Chest without Contrast Date of Exam: 06/06/13 Exam# [id number] Ordering Dr: Libby Mai DO STUDY: CT [...] June 06, 2013 at 10:07:38 AM EDT [phone] Electronically Signed GP/GP If you are the referring physician and would like to consult with the radiologist who provided this interpretation, please contact Florian Valenzuela M.D. at [phone]. If this radiologist is unavailable, you will be directed to another radiologist to assist. If you are a patient with a question regarding this report, please contact your referring physician directly. Professional Interpretation Provided By: [facility], Phone , These documents contain legally protected [...] of these documents. CC: Libby Mai DO Grants Assistant: Signed Immunization Name Dates Details Pneumococcal (2 years and up) on: 2016 Comments: [facility] Family History Unknown Family Member Name Dates Details Father Comments: COPD, Smoker - Status: Active Mother Comments: Breast CA, DM, HTN, Lung CA - Status: Active Social History Name Dates Details Alcohol Use Comments: Occasional alcohol use Status: Active Caffeine Use Comments: 2 QD Status: Active Current Work/Study Status Comments: Part-time, [email or web address] Status: Active Exercise History Comments: Light Status: Active Living Situation Comments: Lives alone Status: Active No Drug Use Status: Active Non Smoker/No Tobacco Use Comments: 04/20/11 Status: Active 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 Smoking Status [...] kg/m2 Body Surface Area Calculated 1.75 m2 86-Agn-051355:15 Temperature 97.8 f Pulse 109 /min Comments: [...] Surface Area Calculated 1.7 m2 :03 Temperature 97.7 f Pulse 88 /min Comments: [...] kg/m2 Body Surface Area Calculated 1.7 m2 :36 Pulse 78 /min Comments: Pattern: Regular Respiration [...] kg/m2 Body Surface Area Calculated 1.7 m2 :34 Comments: recheck after fluids Temperature 98.1 f [...] Calculated 1.72 m2 :33 Comments: hearing wnlDrJoanne Chatterjee and had a glaucoma test done Pulse [...] 0.00 cm Results Date Description Value Details 09-Yll-882199:34 CBC W/Diff, Automated Comments: [facility] [address] [place], [place], [id number] Absolute Lymph 1.24 {X10_3/ul} (Normal) Range: 0.83-4.51 [...] 4.2-5.4 WBC 6.6 K/mm3 (Normal) Range: 4.4-11.0 09-Own-926953:34 Comprehensive Metabolic Profil Comments: [facility] [address] [place], [address] GAP 11 (Normal) Range: 5-15 CO2 28.0 [...] A.D.A. criteria.Please note revised GLUCOSE reference range zixoewoag85/02/2018. :32 HgA1C , Office (54311) HgA1C , Office 6.3 % (Normal) Range: 4.6 - 7.1 :32 Blood Glucose , Office (17477) Blood Glucose , Office 133 (Normal) :16 Miscellaneous Lab Procedure Comments: Comments: [id number]; URINE TOX; RUN LOWEST TEST IN LABCOTest(s) Ordered: [id number]; URINE TOX; RUN LOWEST TEST IN [facility] [address] [place], [place], [address] [facility] Comments: [id number] 6+OXYCODONE-BUND (ng/mL)DRUG RESULT SCREEN CUTOFF____ Amphetamines,Urine Negat LAB (Normal) ananth ng/mL 1000Amphetamine test includes Amphetamine and Methamphetamine.Barbiturates Negative ng/mL 200Benzodiazepines Negative ng/mL 200Cannabinoid TEST Negative ng/mL 20Cocaine (Metab) Negative ng/mL 300Opiates Negative ng/mL 300 Opiates test includes Codeine, Morphine, Hydromorphone, [place] codone.Oxycodone/Oxymorphone,Urine Negative ng/mL 300 Test includes Oxydodone and Oxymorphone. TESTING PERFORMED AT [facility]. ORIGINAL REPORT ON FILE IN LAB CONTAINS ADDITIONAL TEST SITE INFORMATION. :16 Urine Drug Screen (VISTA) Comments: Comments: [id number]; URINE TOX; RUN LOWEST TEST IN LABCORPList of Drugs Taken or Suspected? [facility] [address] [place], [address] THC NEGATIVE (Normal) PCP NEGATIVE [...] TESTING MUST BE ORDERED SEPARATELY. USE TESTMNEMONIC: [facility] :28 Microscopic Examination Comments: PATIENT WAS FASTINGPERFORMED BY: [facility]Tr[facility] HospitalTfridw0674 [facility] [id number] Bacteria Few (Normal) Mucus Threads Present (Normal) Epithelial Cells (non renal) 0-10 {/hpf} (Normal) Range: 0 - 10 RBC 0-2 {/hpf} (Normal) Range: 0 - 2 WBC 0-5 {/hpf} (Normal) Range: 0 - 5 :52 Basic Metabolic Profile (BMP) Comments: [facility] [address] [place], [place], [address] GAP 10 (Normal) Range: 5-15 CO2 27.0 [...] A.D.A. criteria.Please note revised GLUCOSE reference range fsnsqhafo69/02/2018. 07-May-20188:52 CBC W/Diff, Automated Comments: [facility] [address] [place], [place], [address] Absolute Lymph 1.75 {X10_3/ul} (Normal) Range: 0.83-4.51 [...] Range: 4.4-11.0 :05 CBC W/Diff, Automated Comments: [facility] [address] [place], [place], [address] Absolute Lymph 1.82 {X10_3/ul} (Normal) Range: 0.83-4.51 [...] Range: 4.4-11.0 :05 Comprehensive Metabolic Profil Comments: [facility] [address] [place], [address] GAP 12 (Normal) Range: 5-15 CO2 28.0 [...] A.D.A. criteria.Please note revised GLUCOSE reference range eyxtlvpcl22/02/2018. 51-Grv-17929:28 CALCIFEDIOL (16262) Comments: PATIENT WAS FASTINGPERFORMED BY: [facility]CoTr[facility] HospitalWafbns2517 [facility] [id number] Vitamin D, 25-Hydroxy 45.7 ng/mL (Normal) Range: 30.0-100.0 Comments: Vitamin D deficiency has been defined by the [place] and an Endocrine Society practice guideline as alevel of serum 25-OH vitamin D less than 20 ng/mL (1,2).The Endocrine Society went on to further define vitamin Dinsufficiency as a level between 21 and 29 ng/mL (2).1. IOM ([place] [employer]). 2010. Dietary reference intakes for calcium and D. [place]: The National Academies Press.2. Delma MF, Mckenna ABDALLA, Dane MACKENZIE, et al. Evaluation, treatment, and prevention of vitamin D deficiency: an Endocrine Society clinical practice guideline. JCEM. 2010; 96(7):1911-30. :28 VITAMIN B-12 (CYANOCOBALAMIN) Comments: PATIENT WAS FASTINGPERFORMED BY: [place] [id number] (29989) Vitamin B12 507 pg/mL (Normal) Range: 232-1245 :28 TSH (54065) Comments: PATIENT WAS FASTINGPERFORMED BY: [employer] [address] [place] [id number] TSH 0.816 {uIU/mL} (Normal) Range: 0.450-4.500 :28 URINALYSIS, W/ MICRO (54957) Comments: PATIENT WAS FASTINGPERFORMED BY: Tyto[address] [place] [id number] Microscopic Examination See below: (Normal) Comments: Microscopic was indicated and was performed. Nitrite, Urine Negative (Normal) Urobilinogen,Semi-Qn 0.2 mg/dL (Normal) Range: 0.2-1.0 Bilirubin Negative (Normal) Occult Blood Negative (Normal) Ketones Negative (Normal) Glucose Negative (Normal) Protein Negative (Normal) WBC Esterase 1+ (Abnormal) Appearance Clear (Normal) Urine-Color Yellow (Normal) pH 7.0 (Normal) Range: 5.0-7.5 Specific [place] 1.017 (Normal) Range: 1.005-1.030 :28 MICROALBUMIN: CREATININE RATIO Comments: PATIENT WAS FASTINGPERFORMED BY: [employer] Ivftqq4658 [facility] [id number] (90707) AND (01202) Alb/Creat Ratio 9.9 {mg/g_creat} (Normal) Range: 0.0-30.0 Albumin, Urine 7.9 ug/mL (Normal) Creatinine, Urine 79.8 mg/dL (Normal) :28 METABOLIC PANEL, COMPREHENSIVE Comments: PATIENT WAS FASTINGPERFORMED BY: LabFindTheBest6370 [facility] [id number] (80363) ALT (SGPT) 13 [iU]/L (Normal) Range: 0-32 [...] 8-27 Glucose 142 mg/dL (Abnormal) Range: 65-99 59-Gik-52782:28 LIPID PANEL (00263) Comments: PATIENT WAS FASTINGPERFORMED BY: [facility]CoMem[facility] CenterVxvfib3567 [facility] [id number] LDL/HDL Ratio 3.2 {ratio} (Normal) Range: 0.0-3.2 Comments: LDL/HDL Ratio Men Women 1/2 Avg.Risk 1.0 1.5 Av g.Risk 3.6 3.2 2X Avg.Risk 6.2 5.0 3X Avg.Risk 8.0 6.1 LDL Cholesterol Calc 143 mg/dL (Abnormal) Range: 0-99 VLDL Cholesterol Peg 29 mg/dL (Normal) Range: 5-40 HDL Cholesterol 45 mg/dL (Normal) Triglycerides 143 mg/dL (Normal) Range: 0-149 Cholesterol, Total 217 mg/dL (Abnormal) Range: 100-199 25-Ash-20613:28 CBC W/AUTO DIFF WBC (78136) Comments: PATIENT WAS FASTINGPERFORMED BY: [facility]CoTrinit[facility] HospitalOivghl6391 [facility] [id number] Immature Grans (Abs) 0.0 {x10E3/uL} (Normal) Range: [...] (Normal) Range: 3.4-10.8 :43 HgA1C , Office (39744) HgA1C , Office 6.3 % (Normal) Range: 4.6 - 7.1 :43 Blood Glucose , Office (38942) Blood Glucose , Office 105 (Normal) :55 MAGNESIUM (71042) Comments: PATIENT NOT FASTINGPERFORMED BY: [facility] Vkdehj7339 [facility] [id number] Magnesium 1.6 mg/dL (Normal) Range: 1.6-2.3 :55 POTASSIUM SERUM (47458) Comments: PATIENT NOT FASTINGPERFORMED BY: [facility] Eizlmy3447 [facility] [id number]; ov 02/19 Potassium 4.8 mmol/L (Normal) Range: 3.5-5.2 :59 CBC W/Diff, Automated Comments: [facility] [address] [place], [place], [address] Absolute Lymph 2.55 {X10_3/ul} (Normal) Range: 0.83-4.51 [...] Range: 4.4-11.0 07-Dec-20178:59 Comprehensive Metabolic Profil Comments: [facility] [address] [place], [address] GAP 8 (Normal) Range: 5-15 CO2 32.0 mmol/L (Normal) Range: 21.0-32.0 CL 100 mmol/L (Normal) Range: 98-107 K 3.4 mmol/L (Abnormal) Range: 3.5-5.1 NA 140 mmol/L (Normal) Range: 136-145 T BILI 0.40 mg/dL (Normal) Range: 0.20-1.00 ALT 21 U/L (Normal) Range: 13-56 Comments: Please note revised ALT reference range uhvqrmesm47/28/2018. ALK P 76 U/L (Normal) Range: 45-117 [...] A.D.A. criteria.Please note revised GLUCOSE reference range gesrozoam66/02/2018. 9-Ubg-669570:40 Microscopic Examination Comments: PATIENT WAS FASTINGPERFORMED BY: [employer] [address] [id number] BY: [employer] [facility] [place] [id number] Bacteria Few (Normal) Epithelial Cells (non renal) 0-10 {/hpf} (Normal) Range: 0 - 10 RBC None seen {/hpf} (Normal) Range: 0 - 2 WBC 0-5 {/hpf} (Normal) Range: 0 - 5 8-Ifq-608160:40 VITAMIN B-12 (CYANOCOBALAMIN) Comments: PATIENT WAS FASTINGPERFORMED BY: [employer] [address] [id number] BY: [employer] [facility] [place] [id number] (34873) Vitamin B12 470 pg/mL (Normal) Range: 232-1245 8-Ktr-600483:40 CALCIFIDIOL (45000) VIT D Comments: PATIENT WAS FASTINGPERFORMED BY: [employer] [address] [id number] BY: [employer]6370 [address] [facility] [id number] 25 Vitamin D, 25-Hydroxy 36.1 ng/mL (Normal) Range: 30.0-100.0 Comments: Vitamin D deficiency has been defined by the [place] and an Endocrine Society practice guideline as alevel of serum 25-OH vitamin D less than 20 ng/mL (1,2).The Endocrine Society went on to further define vitamin Dinsufficiency as a level between 21 and 29 ng/mL (2).1. IOM ([place] [employer]). 2010. Dietary reference intakes for calcium and D. [place]: The National Academies Press.2. Delma MF, Mckenna ABDALLA, Dane MACKENZIE, et al. Evaluation, treatment, and prevention of vitamin D deficiency: an Endocrine Society clinical practice guideline. JCEM. 2010; 96(7):1911-30. 3-Sgo-900048:40 LIPOPROTEIN, BLD, BY NMR Comments: PATIENT WAS FASTINGPERFORMED BY: BN [facility] Ixjduhfbmw4804 [facility] [id number] BY: CB [facility] Cjswvu6827 [facility] [id number] (45161) LP-IR Score 80 (Abnormal) Comments: INSULIN RESISTANCE MARKER <--Insulin Sensitive Insulin Resistant--> Percentile in Reference PopulationInsulin Resistance ScoreLP-IR Score Low 25th 50th 75th High <27 27 45 63 >63LP-IR Score is inaccurate if patient is non-fasting. .The LP-IR score is a laboratory developed i [facility] that has beenassociated with insulin resistance and [...] were developed and their performance characteristicsdetermined by [employer]. These assays have not been cleared by [...] 1600 - 2000 Very High > 2000 1-Fqa-883172:40 TSH (59164) Comments: PATIENT WAS FASTINGPERFORMED BY: [employer] [place] [address] [id number] BY: [employer] Tavskd8837 [facility] [id number] TSH 1.780 {uIU/mL} (Normal) Range: 0.450-4.500 7-Icm-678475:40 URINALYSIS, W/ MICRO Comments: PATIENT WAS FASTINGPERFORMED BY: [employer] [id number] BY: [employer] Igkmcy8300 [facility] [id number] (57207) Microscopic Examination See below: (Normal) Comments: Microscopic was indicated and was performed. Microscopic Examination MICRON (Normal) Comments: Microscopic follows if indicated. Nitrite, Urine Negative (Normal) Urobilinogen,Semi-Qn 0.2 mg/dL (Normal) Range: 0.2-1.0 Bilirubin Negative (Normal) Occult Blood Negative (Normal) Ketones Negative (Normal) Glucose Negative (Normal) Protein Negative (Normal) WBC Esterase Negative (Normal) Appearance Clear (Normal) Urine-Color Yellow (Normal) pH 7.5 (Normal) Range: 5.0-7.5 Specific [place] 1.016 (Normal) Range: 1.005-1.030 6-Pui-034672:40 MICROALBUMIN: CREATININE Comments: PATIENT WAS FASTINGPERFORMED BY: Primary [employer] [id number] BY: Primary DataDavid Ville 2126470 [facility] [id number] RATIO (32455) AND (87671) Alb/Creat Ratio 8.6 {mg/g_creat} (Normal) Range: 0.0-30.0 Albumin, Urine 4.7 ug/mL (Normal) Creatinine, Urine 54.7 mg/dL (Normal) 8-Ngz-243034:40 METABOLIC PANEL, Comments: PATIENT WAS FASTINGPERFORMED BY: [employer] [id number] BY: Primary DataTrinitas HospitalZhdnhr7474 [facility] [id number] COMPREHENSIVE (68960) ALT (SGPT) 17 [iU]/L (Normal) Range: 0-32 [...] 8-27 Glucose 99 mg/dL (Normal) Range: 65-99 6-Rhc-497563:40 CBC W/AUTO DIFF WBC Comments: PATIENT WAS FASTINGPERFORMED BY: BN [facility] Miojujqhkx9355 [facility] [id number] BY: CB [facility] Uzdnmh3420 [facility] [id number]; ov tomrrow 12/07 (62654) Immature Grans (Abs) 0.0 {x10E3/uL} (Normal) Range: [...] (Normal) Range: 3.4-10.8 :26 HgA1C , Office (24171) HgA1C , Office 6.7 % (Normal) Range: 4.6 - 7.1 :26 Blood Glucose , Office (30083) Blood Glucose , Office 141 (Normal) 2-Fcj-408399:10 CBC W/Diff, Automated Comments: [facility] [address] [place], [address] Absolute Lymph 2.70 {X10_3/ul} (Normal) Range: 0.83-4.51 [...] 4.2-5.4 WBC 7.1 K/mm3 (Normal) Range: 4.4-11.0 5-Wkm-228991:10 Comprehensive Metabolic Profil Comments: [facility] Vjhohhymxv26[address] [place], [place], [address] GAP 10 (Normal) Range: 5-15 CO2 28.0 mmol/L (Normal) Range: 21.0-32.0 CL 100 mmol/L (Normal) Range: 98-107 K 3.8 mmol/L (Normal) Range: 3.5-5.1 NA 138 mmol/L (Normal) Range: 136-145 T BILI 0.40 mg/dL (Normal) Range: 0.20-1.00 ALT 16 U/L (Normal) Range: 13-56 Comments: Please note revised ALT reference range gopfyzpbw28/28/2018. ALK P 81 U/L (Normal) Range: 45-117 [...] 126 mg/dLsuggests DIABETES MELLITUS per A.D.A. criteria. 2-Gvh-212419:10 CRP Comments: [facility] Laslgxdofl27[address] [place], [id number] C-REACTIVE PROT 4.26 mg/L (Abnormal) Range: 0.0-3.0 Comments: C-Reactive Protein (CRP) provides useful information for thediagnosis, therapy and monitoring of inflammatory processesand associated diseases. For the evaluation of Relative Riskfor Cardiovascular Dise ase, a High Sensitivity CRP (HSCRP)should be ordered. 5-Ijj-279948:10 Erythrocyte Sed Rate Comments: [facility] [address]hb[address]u32[address] [place], [address] SED RATE 7 mm/h (Normal) Range: 0-30 07-Sep-20178:49 Rapid Flu (13925 x 2) Influenza A Ag Positive (Normal) Comments: A, no flu shot 3-Vvz-320025:31 Rapid Strep Test, Office (11344) Rapid Strep Test, Office Negative (Normal) :51 THROAT CULTURE (33441) Comments: PATIENT NOT FASTINGPERFORMED BY: [employer] [facility] HospitalVidtelUNC Health Lenoir [id number] Information: SRC:TH Result 1 RRF (Normal) Comments: Routine respiratory vicente Upper Respiratory Final report Culture (Normal) Lipase, Serum 11 U/L (Abnormal) Comments: PATIENT NOT FASTINGPERFORMED BY: Tyto6370 [facility] [id number] :30 Range: 14-85 Written Authorization WAR (Normal) Comments: PATIENT NOT FASTINGPERFORMED BY: [employer] Bonmvs1336 [facility] [id number] :30 Comments: Written Authorization Received.Authorization received from original requistion [id number] by Ann Hartley :30 METABOLIC PANEL, COMPREHENSIVE Comments: stat; PATIENT NOT FASTINGPERFORMED BY: [employer] Vxdyqw8059 [facility] [id number] (57022) ALT (SGPT) 5 [iU]/L (Normal) Range: 0-32 [...] Glucose, Serum 99 mg/dL (Normal) Range: 65-99 7-Rld-160426:30 CBC W/AUTO DIFF WBC (48822) Comments: stat; PATIENT NOT FASTINGPERFORMED BY: [facility] Krrier1237 [facility] [id number] Immature Grans (Abs) 0.0 {x10E3/uL} (Normal) Range: [...] 3.77-5.28 WBC 7.3 {x10E3/uL} (Normal) Range: 3.4-10.8 7-Wrh-760320:31 Rapid Flu (75083 x 2) Influenza A Ag Negative (Normal) 04-Ojq-467358:28 HgA1C , Office (47168) HgA1C , Office 6.3 % (Normal) Range: 4.6 - 7.1 38-Odf-037048:28 Blood Glucose , Office (05661) Blood Glucose , Office 133 (Normal) 77-Seb-652854:27 VITAMIN B-12 (CYANOCOBALAMIN) Comments: PATIENT NOT FASTINGPERFORMED BY: [employer] citiservi [facility] HospitalVidtelUNC Health Lenoir [id number] (63376) Vitamin B12 258 pg/mL (Normal) Range: 211-946 18-Ily-177069:27 MAGNESIUM (95372) Comments: PATIENT NOT FASTINGPERFORMED BY: [employer] [facility] HospitalVidtelUNC Health [facility] [id number] Magnesium, Serum 1.6 mg/dL (Normal) Range: 1.6-2.3 01-Baw-215107:27 Metabolic Panel, Basic Comments: PATIENT NOT FASTINGPERFORMED BY: [employer] RelevvantUNC Health Lenoir [id number] (75733) Calcium, Serum 9.3 mg/dL (Normal) Range: 8.7-10.3 [...] Urinalysis, Complete Comments: How was Urine Obtained? 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 [place], [place], [address] MUCUS, URINE 0 SEEN {/hpf} (Normal) BACTERIA [...] Yellow (Normal) :15 CBC W/Diff, Automated Comments: [facility] Wxrcnqyyuh3047 [facility] [address]. [place], [place], [address] Absolute Lymph 1.41 {X10_3/ul} (Normal) Range: 0.83-4.51 [...] 4.2-5.4 WBC 7.7 K/mm3 (Normal) Range: 4.4-11.0 93-Bqe-383455:15 Comprehensive Metabolic Profil Comments: [facility] [address]ymkss[address]. [place], [place], [address] GAP 6 (Normal) Range: 5-15 CO2 33.0 [...] 7-18 GLU 101 mg/dL (Normal) Range: 70-110 84-Cwj-433135:09 CBC W/Diff, Automated Comments: [facility] Yaw[address]otagw3[address] [place], [address] ; another doc Absolute Lymph 1.90 {X10_3/ul} [...] 4.2-5.4 WBC 6.6 K/mm3 (Normal) Range: 4.4-11.0 61-Awd-888056:09 Comprehensive Metabolic Profil Comments: [facility] [address]hfccuztw[address] [place], [place], [address] GAP 10 (Normal) Range: 5-15 CO2 25.0 [...] 126 mg/dLsuggests DIABETES MELLITUS per A.D.A. criteria. 07-Qmq-126483:09 Lipase Comments: [facility] [address]lpb[address] [place], [address] LIPASE 42 U/L (Abnormal) Range: 73-393 3-Oez-179944:19 Metabolic Panel, Comprehensive Comments: PATIENT NOT FASTINGPERFORMED BY: [facility] Jzefqc5345 [facility] [id number] (82678) ALT (SGPT) 11 [iU]/L (Normal) Range: 0-32 [...] Glucose, Serum 108 mg/dL (Abnormal) Range: 65-99 3-Uge-772075:19 HGB A1C (92926) Comments: PATIENT NOT FASTINGPERFORMED BY: [facility]6370 [facility] [id number] Hemoglobin A1c 5.9 % (Abnormal) Range: 4.8-5.6 Comments: . Pre-diabetes: 5.7 - 6.4 Diabetes: >6.4 Glycemic control for adults with diabetes: <7.0 :19 MAGNESIUM (35232) Comments: PATIENT NOT FASTINGPERFORMED BY: [place] 8025470 [facility] [id number] Magnesium, Serum 1.7 mg/dL (Normal) Range: 1.6-2.3 :19 CBC, Platelets & Auto Diff Comments: PATIENT NOT FASTINGPERFORMED BY: [facility]wrightBe[facility]umont Hospital6370 [facility] [id number] (69614) Immature Grans (Abs) 0.0 {x10E3/uL} (Normal) Range: [...] 3.77-5.28 WBC 9.5 {x10E3/uL} (Normal) Range: 3.4-10.8 21-Sbw-281281:41 Comprehensive Metabolic Profil Comments: REDRAW. PREVIOUS SPECIMEN REJECTED DUE TOHEMOLYSIS. 04/28/17 1128 Aura Ch.[facility] [address] [place], [place], [address] GAP 6 (Normal) Range: 5-15 CO2 25.0 [...] 126 mg/dLsuggests DIABETES MELLITUS per A.D.A. criteria. 44-Akc-373365:05 Urinalysis, Complete Comments: Order Date: 04/28/17Has pt arrived? YHow was Urine Obtained? [facility] [address]ggbdrza7[address] [place], [place], [id number] AMORPHOUS 1+ (Normal) MUCUS, URINE 0 SEEN [...] CLARITY Sl. Cloudy (Normal) COLOR Yellow (Normal) 10-Lnp-674423:00 CBC W/Diff, Automated Comments: [facility] [address]ulsgpy[address] [place], [address] Absolute Lymph 1.58 {X10_3/ul} (Normal) [...] 4.2-5.4 WBC 25.0 K/mm3 (Abnormal) Range: 4.4-11.0 53-Vhw-595600:00 Lactic Acid Comments: Yes/No query for Sepsis Lactate Rule [facility] [address]rknotzwj[address] [place], [address] LACTIC ACID 1.6 mmol/L (Normal) Range: 0.4-2.0 01-Mdw-019246:00 Partial Thromboplast Time Comments: [facility] [address]vmyyqv[address] [place], [address] PTT 22.4 s (Abnormal) Range: 24.1-36.2 47-Vkc-429344:00 Prothrombin Time w/INR Comments: [facility] R[address]jt[address]zixb[address] [place], [address] INR 1.0 (Normal) PROTIME 12.8 s (Normal) Range: 11.7-14.9 02-Wbp-96621:50 Miscellaneous Lab Procedure Comments: Comments: [id number]; URINE TOX; RUN LOWEST TEST IN LABCORPTest(s) Ordered: [id number]; URINE TOX; RUN LOWEST TEST IN [facility] Pkekrjsnxi4503 [address] [place], [id number] [facility] Comments: [id number] 6+OXYCODONE-BUND (ng/mL)DRUG RESULT SCREEN CUTOFF____ Amphetamines,Urine Negat LAB (Normal) ananth ng/mL 1000Amphetamine test includes Amphetamine and Methamphetamine.Barbiturates Negative ng/mL 200Benzodiazepines Negative ng/mL 200Cannabinoid TEST Negative ng/mL 20Cocaine (Metab) Negative ng/mL 300Opiates Positive ng/mL 300 Opiates test includes Codeine, Morphine, Hydromorphone, [place] codone.Please Note:Confirmation performed by Mass SpectrometryCodeine Negative 300Morphine Positive Morphine Confirm >3000 ng/mL 300Hydromor phone Negative 300Hydrocodone Negative 300Oxycodone/Oxymorphone,Urine Negative ng/mL 300 Test includes Oxydodone and Oxymorphone. TESTING PERFORMED AT [facility]. ORIGINAL REPORT ON FILE IN LAB CONTAINS ADDITIONAL TEST SITE INFORMATION. :50 Urine Drug Screen (VISTA) Comments: Comments: [id number]; URINE TOX; RUN LOWEST TEST IN LABCOList of Drugs Taken or Suspected? [facility] Roiybqgbft8759 [address], [id number] THC NEGATIVE (Normal) PCP NEGATIVE (Normal) OPIATES [...] TESTING MUST BE ORDERED SEPARATELY. USE TESTMNEMONIC: [facility] :00 Basic Metabolic Profile (BMP) Comments: 'TROP' Serial specimen #1, #2, #3, or #4: 1[facility] [address]wszz[address] [place], [place], [id number] GAP 10 (Normal) Range: 5-15 CO2 28.0 [...] A.D.A. criteria. :00 CBC W/Diff, Automated Comments: [facility] [address]jcwdn[address] [place], [place], [id number] ; another doc Absolute Lymph 1.20 {X10_3/ul} [...] 4.2-5.4 WBC 4.0 K/mm3 (Abnormal) Range: 4.4-11.0 90-Zfb-36799:00 Lipase Comments: 'TROP' Serial specimen #1, #2, #3, or #4: [address] [place] [address] [place], [address] LIPASE 82 U/L (Normal) Range: 73-393 74-Irz-85993:00 Liver Profile Comments: 'TROP' Serial specimen #1, #2, #3, or #4: [address] [place] [address] As[address]ptiz[address] [place], [address] D BILI 0.12 mg/dL (Normal) Range: 0.00-0.30 T BILI 0.50 mg/dL (Normal) Range: 0.20-1.00 ALT 13 U/L (Normal) Range: 12-78 ALK P 58 U/L (Normal) Range: 45-117 AST 6 U/L (Abnormal) Range: 15-37 GLOB 3.4 g/dL (Normal) Range: 2.3-3.5 ALB 3.7 g/dL (Normal) Range: 3.4-5.0 T PROT 7.1 g/dL (Normal) Range: 6.4-8.2 63-Njr-35803:00 Troponin-I Comments: 'TROP' Serial specimen #1, #2, #3, or #4: 1[facility] [address]phwf[address] [place], [address] TROPONIN-I < 0.02 ng/mL (Normal) Comments: TROPONIN-I EXPECTED VALUES <0.05 NEGATIVE 0.06 - 0.59 AT RISK OF ME > OR = 0.60 SUGGEST ME 05-Nyd-026658:01 Renal Profile Comments: Order Date: 01/17/17Order Info: [id number] - RENALOrder Info: [id number] - MGOrder Date: 01/17/17Order Info: [id number] - MGEast [facility] [address]riehfmc43[address] [place], [phone] CO2 31.0 mmol/L (Normal) Range: 21.0-32.0 CL [...] 7-18 GLU 102 mg/dL (Normal) Range: 70-110 49-Kwr-990531:01 MAGNESIUM (84928) Comments: Order Date: 01/17/17Order Info: [id number] - RENALOrder Info: [id number] - MGOrder Date: 01/17/17Order Info: [id number] - MGWooMount Carmel Health System [address]jyy[address] [place], [phone] MG 1.5 mg/dL (Abnormal) Range: 1.8-2.4 Comments: Moderate Hemolysis, Result may be falsely increased. 32-Ofw-845598:25 CBC W/Diff, Automated Comments: [facility] [address] [place], [address] Absolute Lymph 1.62 {X10_3/ul} (Normal) Range: 0.83-4.51 [...] 4.2-5.4 WBC 10.3 K/mm3 (Normal) Range: 4.4-11.0 79-Nhf-057474:25 Comprehensive Metabolic Profil Comments: 'TROP' Serial specimen #1, #2, #3, or #4: [address] [place] [address] [address] [place], [place], [address] GAP 10 (Normal) Range: 5-15 CO2 29.0 [...] <126 mg/dLsuggests IMPAIRED HOMEOSTASIS per A.D.A. criteria. 56-Oup-777158:25 Lipase Comments: 'TROP' Serial specimen #1, #2, #3, or #4: [address] [place] [address] [address] [place], [place], [address] LIPASE 52 U/L (Abnormal) Range: 73-393 85-Fcs-150380:25 Partial Thromboplast Time Comments: [facility] [address]xsapvu[address] [place], [place], [address] PTT 32.0 s (Normal) Range: 24.1-36.2 90-Gev-425262:25 Prothrombin Time w/INR Comments: [facility] [address]axqgthxz[address] [place], [place], [address] INR 1.0 (Normal) PROTIME 13.1 s (Normal) Range: 11.7-14.9 19-Ixq-786296:25 Troponin-I Comments: 'TROP' Serial specimen #1, #2, #3, or #4: [address] [place] [address] [address] [place], [place], [address] TROPONIN-I 0.93 ng/mL (Abnormal) Comments: Critical Result(s) Called INDRA Tyson at: 12:03:56012/19/2016 by: JAYDA CRAIG TROPONIN-I EXPECTED VALUES <0.05 NEGATIVE 0.06 - 0.59 AT RISK OF ME > OR = 0.60 SUGGEST ME 02-Wii-441188:40 Urinalysis, Complete Comments: How was Urine Obtained? 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 [place], [id number] MUCUS, URINE 0 SEEN {/hpf} (Normal) BACTERIA [...] CLARITY Sl. Cloudy (Normal) COLOR Yellow (Normal) 58-Qog-185939:09 CBC W/Diff, Automated Comments: [facility] Uhobujbzbh029[address] [place], [address] Absolute Lymph 1.33 {X10_3/ul} (Normal) Range: 0.83-4.51 [...] 4.2-5.4 WBC 5.7 K/mm3 (Normal) Range: 4.4-11.0 31-Snw-528292:09 Comprehensive Metabolic Profil Comments: 'TROP' Serial specimen #1, #2, #3, or #4: 1[facility] Mbmhjmomsu[address] [place], [place], [address] GAP 8 (Normal) Range: 5-15 CO2 33.0 [...] <126 mg/dLsuggests IMPAIRED HOMEOSTASIS per A.D.A. criteria. 65-Oho-036348:09 Lactic Acid Comments: [facility] [address]tskgpenar[address] [place], [address] LACTIC ACID 1.5 mmol/L (Normal) Range: 0.4-2.0 94-Vbz-832492:09 Lipase Comments: 'TROP' Serial specimen #1, #2, #3, or #4: [address] [place] [address] [address]qr[address]hcaz[address] [place], [address] LIPASE 40 U/L (Abnormal) Range: 73-393 :09 Partial Thromboplast Time Comments: [facility] Olfkybymtr[address] [place], [address] PTT 38.3 s (Abnormal) Range: 24.1-36.2 :09 Prothrombin Time w/INR Comments: [facility] [address] [place], [address] INR 1.3 (Normal) PROTIME 15.8 s (Abnormal) Range: 11.7-14.9 :09 Troponin-I Comments: 'TROP' Serial specimen #1, #2, #3, or #4: [address] [place] [address] S[address]rfaji[address] [place], [address] TROPONIN-I < 0.02 ng/mL (Normal) Comments: TROPONIN-I EXPECTED VALUES <0.05 NEGATIVE 0.06 - 0.59 AT RISK OF ME > OR = 0.60 SUGGEST ME 10-Omj-338855:52 Potassium Comments: [facility] Mluhxzuokj13[address] [place], [address](326 K 3.4 mmol/L (Abnormal) Range: 3.5-5.1 09-Nbh-25031:10 Basic Metabolic Profile (BMP) Comments: DR AVINA ORDERED: BMP, CBC, MRSADR.NOELLE ORDERED: [facility] S[address]qsjzprq6[address] [place], [address] GAP 12 (Normal) Range: 5-15 CO2 27.0 mmol/L (Normal) Range: 21.0-32.0 CL 99 mmol/L (Normal) Range: 98-107 K 2.7 mmol/L (Abnormal) Range: 3.5-5.1 Comments: Critical Result(s) Called at: 10:30:38 11/14/2016 by:Aura Ch to [facility] NA 138 mmol/L (Normal) Range: 136-145 CA [...] 126 mg/dLsuggests DIABETES MELLITUS per A.D.A. criteria. 01-Qft-21518:10 CBC-Complete Blood Cnt No Diff Comments: DR AVINA ORDERED: BMP, CBC, MRSADRNIGEL ORDERED: ESTEBAN AVINA ORDERED: BMP, CBC, HANSADRNIGEL ORDERED: [facility] Etobybaegc7450 [facility] [place] [place], [address] MPV 10.8 fL (Normal) Range: 6.2-12.0 PLT [...] 4.2-5.4 WBC 7.1 K/mm3 (Normal) Range: 4.4-11.0 81-Fnr-10808:10 MRSA/SAID SCREEN Comments: [facility] Otregsjxhj[address] [place], [address] ; another doc MRSA+SAID SCRN See Note (Normal) Comments: DR AVINA ORDERED: BMP, CBC, MRSA ORDERED: K MRSA/SAID SCRNS. AUREUS S. aureus NegativeMRSA MRSA Negative :09 MAGNESIUM (72334) Comments: PATIENT NOT FASTINGPERFORMED BY: Tyto6370 [facility] [id number] Magnesium, Serum 1.7 mg/dL (Normal) Range: 1.6-2.3 :09 Metabolic Panel, Basic Comments: PATIENT NOT FASTINGPERFORMED BY: aiHit [facility] Usnltp4506 [facility] [id number] ([id number]) Calcium, Serum 8.7 mg/dL (Normal) Range: 8.7-10.3 [...] Glucose, Serum 97 mg/dL (Normal) Range: 65-99 14-Abx-590939:45 Urinalysis, Complete Comments: How was Urine Obtained? DOUBLE NEEDLE OPERATOR TO SPECIFYEast [facility] Hospital W[address]pxsgpdmp15[address] [place], [address] MUCUS, URINE RARE {/hpf} (Normal) BACTERIA RARE [...] (Normal) CLARITY Cloudy (Normal) COLOR Yellow (Normal) 95-Ylf-504909:53 CBC W/Diff, Automated Comments: [facility] Tcssotduda[address] [place], [place], [address] Absolute Lymph 1.08 {X10_3/ul} (Normal) Range: 0.83-4.51 [...] 4.2-5.4 WBC 6.1 K/mm3 (Normal) Range: 4.4-11.0 93-Gxy-636772:53 Comprehensive Metabolic Profil Comments: [facility] Weommjniau45[address] [place], [address] GAP 12 (Normal) Range: 5-15 CO2 27.0 [...] per A.D.A. criteria. :53 Lactic Acid Comments: [facility] Yzcgehbeox[address] [place], [place], [address] LACTIC ACID 2.2 mmol/L (Abnormal) Range: 0.4-2.0 :53 Partial Thromboplast Time Comments: [facility] [address]upclsl[address] [place] [place], [address] PTT 32.1 s (Normal) Range: 24.1-36.2 :53 Prothrombin Time w/INR Comments: [facility] [address]clqjdizo[address] [place], [place], [address] INR 1.0 (Normal) PROTIME 13.2 s (Normal) Range: 11.7-14.9 :54 Basic Metabolic Profile (BMP) Comments: [facility] Ypfyedaujp45[address] [place], [place], [address] GAP 10 (Normal) Range: 5-15 CO2 29.0 [...] :54 CBC-Complete Blood Cnt No Diff Comments: [facility] [address] [place], [place], [address] MPV 10.1 fL (Normal) Range: 6.2-12.0 PLT [...] (Normal) Range: 4.4-11.0 :54 Hemoglobin A1c Comments: [facility] I[address]hazbiaf26[address] [place], [place], [address] HGB A1C 6.4 % (Abnormal) Range: 4.2-6.3 :54 Liver Profile Comments: [facility] Qnhfrxpybu[address] [place], [place], [address] D BILI 0.27 mg/dL (Normal) Range: 0.00-0.30 T BILI 0.80 mg/dL (Normal) Range: 0.20-1.00 ALT 12 U/L (Normal) Range: 12-78 ALK P 82 U/L (Normal) Range: 45-117 AST 10 U/L (Abnormal) Range: 15-37 GLOB 3.5 g/dL (Normal) Range: 2.3-3.5 ALB 3.2 g/dL (Abnormal) Range: 3.4-5.0 T PROT 6.7 g/dL (Normal) Range: 6.4-8.2 :54 MRSA/SAID SCREEN Comments: [facility] [address] [place], [address] MRSA+SAID SCRN See Note (Normal) Comments: MRSA/SAID SCRNS. AUREUS S. aureus NegativeMRSA MRSA Negative :54 Partial Thromboplast Time Comments: [facility] [address] [place], [place], [address] PTT 40.7 s (Abnormal) Range: 24.1-36.2 :54 Prothrombin Time w/INR Comments: [facility] By[address] [place], [address] INR 1.1 (Normal) PROTIME 14.3 s (Normal) Range: 11.7-14.9 :55 CBC W/Diff, Automated Comments: [facility] [address] [place], [address] Absolute Lymph 1.18 {X10_3/ul} (Normal) [...] 4.2-5.4 WBC 13.8 K/mm3 (Abnormal) Range: 4.4-11.0 [id number]:55 Comprehensive Metabolic Profil Comments: [facility] [address] [place], [address] GAP 12 (Normal) Range: 5-15 CO2 24.0 [...] 200 mg/dLsuggests DIABETES MELLITUS per A.D.A. criteria. :22 MAGNESIUM (91228) Comments: PATIENT NOT FASTINGPERFORMED BY: [facility] [id number] Magnesium, Serum 1.5 mg/dL (Abnormal) Range: 1.6-2.3 :22 POTASSIUM SERUM (90370) Comments: PATIENT NOT FASTINGPERFORMED BY: [facility] [facility] [id number] Potassium, Serum 4.0 mmol/L (Normal) Range: 3.5-5.2 :13 Rapid Flu (81782 x 2) Influenza A Ag negative (Normal) :42 VITAMIN B12 AND FOLATES Comments: PATIENT NOT FASTINGPERFORMED BY: [facility] [facility] [id number] ([id number]) Folate (Folic Acid), Serum 18.3 ng/mL (Normal) Comments: A serum folate concentration of less than 3.1 ng/mL isconsidered to represent clinical deficiency. Vitamin B12 650 pg/mL (Normal) Range: 211-946 :42 TSH (70512) Comments: PATIENT NOT FASTINGPERFORMED BY: [facility] [facility] [id number] TSH 1.610 {uIU/mL} (Normal) Range: 0.450-4.500 [id number]:42 Metabolic Panel, Comprehensive Comments: PATIENT NOT FASTINGPERFORMED BY: [facility]6370 [facility] [id number] (24463) ALT (SGPT) 9 [iU]/L (Normal) Range: 0-32 [...] (Normal) Range: 65-99 :26 HgA1C , Office (16349) HgA1C , Office 6.8 % (Normal) Range: 4.6 - 7.1 :26 Blood Glucose , Office (10372) Blood Glucose , Office 110 (Normal) :10 Culture, Body Fluid Comments: [facility] Slizdprssq3969 [place], [address] ; Another doc CUBF See [...] Fluid RBC, WBC AND Comments: [facility] Vgehlzzgmw6586 [facility] [place], [address] ; another doc Diff PATH [...] (Normal) :30 Crystals, Body Fluid Comments: LEFT [facility] [address] [place], [address] PATH REV Reviewed (Normal) SOURCE/BF SYNOVIAL (Normal) CRYSTALS/BF SEE PATH REV (Normal) :30 Culture, Body Fluid Comments: [facility] [address] [place], [address] CUBF See Note (Normal) Comments: List Antibiotics Last 48 Hours? UNKList Antibiotics to be Started? UNKComments: LEFT KNEEGram StainCentrifuged Specimen? Culture performed on centrifuged specimen Gram Stain 2+ Red Blood Donya ls No White Blood Cells No organisms seen Body Fluid CultNO GROWTH IN 14 DAYS Cult, AnaerobicNo growth in 5 days. :48 CBC W/Diff, Automated Comments: [facility] [address] [place], [address] Absolute Lymph 2.23 {X10_3/ul} (Normal) [...] 4.2-5.4 WBC 7.0 K/mm3 (Normal) Range: 4.4-11.0 6-Npg-556967:48 Comprehensive Metabolic Profil Comments: [facility] [address] [place], [place], [address] GAP 10 (Normal) Range: 5-15 CO2 29.0 [...] 7-18 GLU 99 mg/dL (Normal) Range: 70-110 95-Tej-44633:32 Comprehensive Metabolic Profil Comments: [facility] [address] [place], [address] GAP 8 (Normal) Range: 5-15 CO2 31.0 [...] <126 mg/dLsuggests IMPAIRED HOMEOSTASIS per A.D.A. criteria. 58-Cib-18263:32 Culture, Urine Comments: [facility] Shfgeilbcu5051 [facility] [address]. [place], [place], [address] CUUR See Note (Normal) Comments: Urine CultureORGANISM [...] $ <=20 S(NF) indicates non-formulary drug at [facility]. Approval by Infectious Disease Specialist required before non- formulary drugs may be ordered and/or dispensed. 16-Ulu-906625:08 Urinalysis, Complete Comments: How was Urine Obtained? CLEAN [facility] Ktfswnotif0416 [facility] [address]. [place], [place], [address] MUCUS, URINE 0 SEEN {/hpf} (Normal) BACTERIA [...] (Normal) COLOR Yellow (Normal) :56 POTASSIUM SERUM (23576) Comments: PATIENT NOT FASTINGPERFORMED BY: Primary DataTrinitas HospitalVtotct9598 [facility] [id number] Potassium, Serum 4.4 mmol/L (Normal) Range: 3.5-5.2 :56 MAGNESIUM (93920) Comments: PATIENT NOT FASTINGPERFORMED BY: Primary DataTrinitas HospitalJozusl9778 [facility] [id number] Magnesium, Serum 1.5 mg/dL (Abnormal) Range: 1.6-2.3 :29 CBC WITH MANUAL DIFF Comments: PATIENT WAS FASTINGPERFORMED BY: Primary DataTrinitas HospitalKbitlp9904 [facility] [id number] Information: [id number] (64677) Immature Grans (Abs) 0.0 {x10E3/uL} (Normal) Range: [...] 3.77-5.28 WBC 5.8 {x10E3/uL} (Normal) Range: 3.4-10.8 0-Unv-851982:15 CBC, Platelets & Auto Diff Comments: PATIENT NOT FASTINGPERFORMED BY: [facility] Wdpzpg3579 [facility] [id number] (29858) Immature Grans (Abs) 0.0 {x10E3/uL} (Normal) Range: [...] 3.77-5.28 WBC 14.0 {x10E3/uL} (Abnormal) Range: 3.4-10.8 6-Rgj-696234:15 Metabolic Panel, Comprehensive Comments: PATIENT NOT FASTINGPERFORMED BY: Primary DataTrinitas HospitalEisdli5086 [facility] [id number] (89674) ALT (SGPT) 14 [iU]/L (Normal) Range: 0-32 [...] Glucose, Serum 98 mg/dL (Normal) Range: 65-99 07-Sdu-777196:28 Metabolic Panel, Comments: PATIENT WAS FASTINGPERFORMED BY: Primary DataTrinitas HospitalRkpetp9402 [facility] [id number] Information: [id number] Comprehensive (27241) ALT (SGPT) 13 [iU]/L (Normal) Range: 0-32 [...] Glucose, Serum 110 mg/dL (Abnormal) Range: 65-99 3-Rrc-004779:54 Urinalysis, Office (28376) UA - LEUKOCYTE ESTERASE Trace (Normal) UA - NITRITE Negative (Normal) URINE UROBILINGN JEWELS TIMED Normal mg/dL (Normal) UA - PROTEIN Negative mg/dL (Normal) UA - PH 6 (Abnormal) UA - BLOOD Negative (Normal) UA - SPECIFIC GRAVITY 1.015 (Normal) UA - KETONES Moderate mg/dL (Normal) UA - BILIRUBIN Negative (Normal) UA - GLUCOSE Negative (Normal) 04-Ppz-617600:21 Basic Metabolic Profile (BMP) Comments: [facility] [address] [place], [address] GAP 9 (Normal) Range: 5-15 [...] 200 mg/dLsuggests DIABETES MELLITUS per A.D.A. criteria. 37-Jmv-685286:21 CBC W/Diff, Automated Comments: [facility] [address] [place], [address] Absolute Lymph 3.53 {X10_3/ul} (Normal) [...] 4.2-5.4 WBC 13.8 K/mm3 (Abnormal) Range: 4.4-11.0 97-Gje-082417:21 Urinalysis, Complete Comments: Order Date: 04/25/16How was Urine Obtained? [facility] [address] [place], [address] MUCUS, URINE 0 SEEN {/hpf} [...] (Normal) CLARITY Cloudy (Normal) COLOR Yellow (Normal) 10-Kis-965869:20 Lactic Acid Comments: [facility] [address] [place], [address] LACTIC ACID 4.8 mmol/L (Abnormal) Range: 0.4-2.0 Comments: Critical Result(s) Called at: 19:26:18 04/25/2016 by:Tiffany Oliva RN :32 CBC W/Diff, Automated Comments: [facility] T[address]ofvn[address]uxh[address] [facility] [address] [place], [place], [address] Absolute Lymph 1.94 {X10_3/ul} (Normal) Range: 0.83-4.51 [...] Range: 4.4-11.0 :32 Comprehensive Metabolic Profil Comments: [facility] [address] [place], [address] GAP 9 (Normal) Range: 5-15 CO2 26.0 [...] 126 mg/dLsuggests DIABETES MELLITUS per A.D.A. criteria. 60-Tpz-739986:01 CBC W/Diff, Automated Comments: [facility] [address] [place], [place], [address] Absolute Lymph 2.12 {X10_3/ul} (Normal) Range: 0.83-4.51 [...] 4.2-5.4 WBC 9.9 K/mm3 (Normal) Range: 4.4-11.0 72-Inh-816981:01 CRP Comments: [facility] [address] [place], [address] C-REACTIVE PROT < 2.90 mg/L (Normal) Range: 0.0-3.0 Comments: C-Reactive Protein (CRP) provides useful information for thediagnosis, therapy and monitoring of inflammatory processesand associated diseases. For the evaluation of Relative Riskfor Cardiovascular Dise ase, a High Sensitivity CRP (HSCRP)should be ordered. 19-Uvc-352734:01 Erythrocyte Sed Rate Comments: [facility] [address] [place], [place], [address] SED RATE 10 mm/h (Normal) Range: 0-30 21-Lbv-679399:13 CK-MB Quantitative and Index Comments: 'TROP' Serial specimen #1, #2, #3, or #4: 1'CKMB' Serial Specimen #1, #2 or #3? 1W[facility] [address]uld[address] [place], [place], [address] CKRI 1.5 % (Abnormal) Range: 0.0-1.4 Comments: RELATIVE INDEX >1.5% IS PRESUMPTIVELY POSITIVE CPKMB 1.0 ng/mL (Normal) Range: 0.0-5.0 Comments: CK-MB and RI Interpretation MB Relative Index Non-AMI <or= 5 NA Indeterminate > 5 <or= 4 AMI > 5 > 4 CPK TOTAL 65 U/L (Normal) Range: 26-192 41-Pcv-764008:13 Myoglobin, Serum Comments: [facility] (refer to report for specific site)refer to report for address and phone number Myoglobin, Ser 42 ng/mL (Normal) Range: 25-58 Comments: Performed at: [address] [id number] Director: Edil Robertson PhD, Phone: [phone] 47-Lxt-173375:13 Troponin-I Comments: 'TROP' Serial specimen #1, #2, #3, or #4: 1'CKMB' Serial Specimen #1, #2 or #3? 1[facility] [address] [place] [address], [address] TROPONIN-I < 0.02 ng/mL (Normal) Comments: TROPONIN-I EXPECTED VALUES <0.05 NEGATIVE 0.06 - 0.59 AT RISK OF ME > OR = 0.60 SUGGEST ME 33-Txt-329133:19 URINE HANSA CULTURE-JEWELS COL Comments: PATIENT NOT FASTINGPERFORMED BY: [address] [id number] Information: SRC:[facility] [id number] COUNT (71652) Antimicrobial MIHEAD (Normal) Comments: S = Susceptible; [...] mL (Abnormal) Urine Final report Culture,Comprehensive (Abnormal) 53-Pil-808888:54 Urinalysis, Office (24913) UA - LEUKOCYTE ESTERASE Small (Normal) UA - NITRITE Positive (Normal) URINE UROBILINGN JEWELS TIMED Normal mg/dL (Normal) UA - PROTEIN Trace mg/dL (Normal) UA - PH 7 (Normal) UA - BLOOD Negative (Normal) UA - SPECIFIC GRAVITY 1.025 (Normal) UA - KETONES Small mg/dL (Normal) UA - BILIRUBIN Small (Normal) UA - GLUCOSE Negative (Normal) 74-Wuz-868461:38 Blood Glucose , Office (40962) Blood Glucose , Office 85 (Normal) :38 Basic Metabolic Profile (BMP) Comments: Is Patient Taking Vitamins or Folic Acid Supplements? [facility] [address]qrbf[address] [place], [place], [address] GAP 9 (Normal) Range: 5-15 CO2 28.0 [...] Patient Taking Vitamins or Folic Acid Supplements? [facility] Xf[address]htsgc[address] [place], [place], [address] FOLATES 13.40 ng/mL (Normal) Range: 3.1-17.5 :38 Vitamin B12 723 pg/mL (Normal) Comments: [facility] Lriimeblce9422 [address] [place], [address] Range: 211-911 :32 CBC W/Diff, Automated Comments: [facility] [address]gsr[address] [place], [address] ; ordered by Dr. Colmenares Absolute Lymph [...] 4.2-5.4 WBC 6.6 K/mm3 (Normal) Range: 4.4-11.0 :32 Comprehensive Metabolic Profil Comments: [facility] [address] [place], [place], [address] GAP 5 (Normal) Range: 5-15 CO2 31.0 [...] mg/dL (Normal) Range: 70-110 :03 LIPID PANEL (76698) Comments: PATIENT WAS FASTINGPERFORMED BY: CB [facility] Mrekne6362 [facility] [id number] BY: BN [facility] [address] [id number] LDL/HDL Ratio 3.2 {ratio_units} (Normal) Range: 0.0-3.2 [...] 1, 25-DIHYDROXY Comments: PATIENT WAS FASTINGPERFORMED BY: [employer] Chalkboard [facility] [id number] BY: [place] Data[place] [id number] (63947) Calcitriol(1,25 di-OH Vit D) 51.7 pg/mL (Normal) Range: 19.9-79.3 :03 MICROALBUMIN: CREATININE Comments: PATIENT WAS FASTINGPERFORMED BY: [employer] [facility] [id number] BY: [place] [id number] RATIO (29895) AND (83657) Microalb/Creat Ratio 35.5 {mg/g_creat} (Abnormal) Range: 0.0-30.0 Microalbumin, Urine 42.6 ug/mL (Abnormal) Range: 0.0-17.0 Creatinine, Urine 120.0 mg/dL (Normal) Range: 15.0-278.0 :03 METABOLIC PANEL, Comments: PATIENT WAS FASTINGPERFORMED BY: [employer] Beohja5541 [facility] [id number] BY: Pathwright[address] [id number] COMPREHENSIVE (93065) ALT (SGPT) 14 [iU]/L (Normal) Range: 0-32 [...] Glucose, Serum 137 mg/dL (Abnormal) Range: 65-99 16-Psm-52273:03 CBC, PLATELETS & AUT DIFF Comments: PATIENT WAS FASTINGPERFORMED BY: CB [facility] Vdmtiq1926 [facility] [id number] BY: [facility] [address] [id number] Information: [id number] (01539) Immature Grans (Abs) 0.0 {x10E3/uL} (Normal) Range: [...] (THYROID STIMULATING Comments: PATIENT WAS FASTINGPERFORMED BY: [employer]board [facility] [id number] BY: Primary Data[address] [id number] HORMONE) (04581) TSH 3.840 {uIU/mL} (Normal) Range: 0.450-4.500 :03 VITAMIN B12 AND FOLATES Comments: PATIENT WAS FASTINGPERFORMED BY: [employer] [facility] [id number] BY: Pathwright[address] [id number] (71125) Folate (Folic Acid), Serum 14.3 ng/mL (Normal) Comments: A serum folate concentration of less than 3.1 ng/mL isconsidered to represent clinical deficiency. Vitamin B12 742 pg/mL (Normal) Range: 211-946 :56 HgA1C , Office (93668) HgA1C , Office 6.8 % (Normal) Range: 4.6 - 7.1 :56 Blood Glucose , Office (32806) Blood Glucose , Office 128 (Normal) :36 CBC W/Diff, Automated Comments: [facility] [address] [place], [place], [address] Absolute Lymph 2.25 {X10_3/ul} (Normal) Range: 0.83-4.51 [...] 4.2-5.4 WBC 7.7 K/mm3 (Normal) Range: 4.4-11.0 :36 Comprehensive Metabolic Profil Comments: [facility] [address] [place], [address] GAP 8 (Normal) Range: 5-15 CO2 28.0 [...] 126 mg/dLsuggests DIABETES MELLITUS per A.D.A. criteria. 1-Vzo-816186:12 ANTINUCLEAR ANTIBODIES DIRECT Comments: [facility] (refer to report for specific site)refer to report for address and phone number [place]-DIRECT Negative (Normal) Comments: Performed at: - [facility] [id number] Director: Edil Robertson PhD, Phone: [phone] 7-Rai-379626:12 CBC W/Diff, Automated Comments: [facility] [address] [place], [address] Absolute Lymph 1.93 {X10_3/ul} (Normal) Range: 0.83-4.51 [...] report for address and phone number ANTI-CCP 599186 4 {units} (Normal) Range: 0-19 Comments: Negative <20 Weak positive 20 - 39 Moderate positive 40 - 59 Strong positive >59 :12 Comprehensive Metabolic Profil Comments: [facility] [address] [place], [place], [address] GAP 6 (Normal) Range: 5-15 CO2 33.0 [...] 7-18 GLU 95 mg/dL (Normal) Range: 70-110 4-Ybb-179913:12 Hep B Surface Antibodies Comments: [facility] (refer to report for specific site)refer to report for address and phone number Hep B Loi AB Reactive (Normal) Comments: Non Reactive: Inconsistent with immunity, less than 10 mIU/mL Reactive: Consistent with immunity, greater than 9.9 mIU/mL 6-Ffv-010907:12 Hepatitis B Surface Ag Comments: [facility] (refer to report for specific site)refer to report for address and phone number HB SURF AG Negative (Normal) 9-Peo-134691:12 Hepatitis B Core AB IgM Comments: [facility] (refer to report for specific site)refer to report for address and phone number HB CORE [id number] Negative (Normal) Comments: Performed at: - [facility] [id number] Director: Edil Robertson PhD, Phone: [phone] at: 2Q - [facility] [place] KHU7409 [place], [place] [id number] Director: Jared Rodriguez PhD, Phone: [phone] at: - [facility] [id number] Director: Dylan Matthews MD, Phone: [phone] 5-Elu-547119:12 Hepatitis C Antibodies Comments: [facility] (refer to report for specific site)refer to [...] a more specific supplemental or PCR testing. [facility] offers HCV Ab w/Reflex to Verification test #[id number]. :12 HLA B27 Negative (Normal) Comments: [facility] (refer to report for specific site)refer to report for address and phone number Comments: HLA-B*27 NegativeHLA allele interpretation for all loci based on IMGT/HLAdatabase version 3.15A [facility] CenterIA ID Number [id number] test was performed using PCR (Polymerase ChainReaction)/SSOP (Sequence Specific Oligonucleotide Probes)technique. SBT (Sequence Based Typing) and/or SSP(Sequence Specific Primers) may be used as supplementalmethods when necessary. Please contact HLA CustomerService at [phone] if you have any questions. Director of HLA Laboratory Dr Jared Rodriguez, PhD :12 Rheumatoid Factor Comments: [facility] [address]sfviszlf[address] [place], [address] RHEUMATOID FAC < 10.0 {IU/mL} (Normal) 2-Qri-794396:12 Vitamin D,25 Hydroxy Comments: [facility] [address]bqe[address] [place], [address] Vitamin D 25-OH 50.9 ng/mL (Normal) Comments: Vitamin D 25(OH) Status Range Deficiency <20 ng/mL (50nmol/L) Insuffciency 20 - 30 ng/mL (50 - 75 nmol/L) Sufficiency 30 - 100 ng/mL (75 - 250 nmol/L) Toxicity >100 ng/mL (>250 nmol/L) 66-Bhm-72816:37 LIPID PANEL (53922) Comments: PATIENT WAS FASTINGPERFORMED BY: BrowserlingUNC Health [facility] [id number] LDL/HDL Ratio 2.8 {ratio_units} (Normal) Range: 0.0-3.2 [...] - 169 >19 years 100 - 199 73-Ctv-78088:37 CBC, PLATELETS & AUT DIFF Comments: PATIENT WAS FASTINGPERFORMED BY: aiHit LabCoPlaceSpeakJrlvwd9223 [facility] [id number] Information: [id number] (93777) Immature Grans (Abs) 0.0 {x10E3/uL} (Normal) Range: [...] B-12 (CYANOCOBALAMIN) Comments: PATIENT WAS FASTINGPERFORMED BY: [employer] Ilnzep7303 Kai Medicalin [place] [id number] (42241) Vitamin B12 871 pg/mL (Normal) Range: 211-946 :37 Vitamin D Hydroxy (97580) Comments: PATIENT WAS FASTINGPERFORMED BY: aiHit LabESCAPESwithYOUrp Eobldu[address] [place] [id number] Vitamin D, 25-Hydroxy 69.6 ng/mL (Normal) Range: 30.0-100.0 Comments: Vitamin D deficiency has been defined by the [place] of[place] and an Endocrine Society practice guideline as alevel of serum 25-OH vitamin D less than 20 ng/mL (1,2).The Endocrine Society went on to further define vitamin Dinsufficiency as a level between 21 and 29 ng/mL (2).1. IOM ([place] of Medicine). 2010. Dietary reference intakes for calcium and D. [place]: The National Academies Press.2. Delma MF, Mckenna ABDALLA, Dane MACKENZIE, et al. Evaluation, treatment, and prevention of vitamin D deficiency: an Endocrine Society clinical practice guideline. JCEM. 2010; 96(7):1911-30. :37 METABOLIC PANEL, COMPREHENSIVE Comments: PATIENT WAS FASTINGPERFORMED BY: [facility] Hdrjtj3296 [facility] [id number]; apt. 07-01-15 (34970) ALT (SGPT) 10 [iU]/L (Normal) Range: 0-32 [...] (Abnormal) Range: 65-99 :02 HgA1C , Office (43523) HgA1C , Office 7.1 % (Normal) Range: 4.6 - 7.1 :24 EBV Panel (75264) Comments: PATIENT NOT FASTINGPERFORMED BY: [facility]6370 [facility] [id number] Interpretation: SPRCS (Normal) Comments: EBV Interpretation Chart [...] DIFF WBC Comments: PATIENT NOT FASTINGPERFORMED BY: [facility]6370 [facility] [id number] Information: [id number] (59666) Immature Grans (Abs) 0.0 {x10E3/uL} (Normal) Range: [...] 3.77-5.28 WBC 6.7 {x10E3/uL} (Normal) Range: 3.4-10.8 51-Wtx-613115:37 HANSA CULTURE-OTHER (32176) Comments: PATIENT NOT FASTINGPERFORMED BY: Primary DataMemorial Medical CenterPgsdwc0286 [facility] [id number] Information: SRC:THRT [id number] Result 1 RRF (Normal) Comments: Routine respiratory vicente Upper Respiratory Culture Final report (Normal) 13-Cho-366899:30 Rapid Strep Test, Office (00692) Rapid Strep Test, Office Negative (Normal) 06-Feb-20159:15 CBC, Platelet, No Differential Comments: PATIENT WAS FASTINGPERFORMED BY: Primary Data Iranbw0897 [facility] [id number] Platelets 245 {x10E3/uL} (Normal) Range: 150-379 RDW [...] Panel (14) Comments: PATIENT WAS FASTINGPERFORMED BY: [facility]CoTrinitas HospitalUcdhos5366 [facility] [id number] Information: [id number] ALT (SGPT) 8 [iU]/L (Normal) Range: 0-32 [...] With LDL/HDL Comments: PATIENT WAS FASTINGPERFORMED BY: [facility]6370 [facility] [id number] Ratio LDL/HDL Ratio 3.7 {ratio_units} Range: 0.0-3.2 (Abnormal) Comments: LDL/HDL Ratio Men Women 1/2 Avg.Risk 1.0 1.5 Av g.Risk 3.6 3.2 2X Avg.Risk 6.2 5.0 3X Avg.Risk 8.0 6.1 LDL Cholesterol Calc 130 mg/dL (Abnormal) Range: 0-99 VLDL Cholesterol Pge 39 mg/dL (Normal) Range: 5-40 HDL Cholesterol 35 mg/dL (Abnormal) Comments: According to ATP-III Guidelines, HDL-C >59 mg/dL is considered anegative risk factor for CHD. Triglycerides 195 mg/dL (Abnormal) Range: 0-149 Cholesterol, Total 204 mg/dL (Abnormal) Range: 100-199 Vitamin B12 371 pg/mL (Normal) Comments: PATIENT WAS FASTINGPERFORMED BY: [facility]6370 [facility] [id number] :15 Range: 211-946 Vitamin D, 25-Hydroxy 56.4 ng/mL (Normal) Comments: PATIENT WAS FASTINGPERFORMED BY: [facility]6370 [facility] [id number] :15 Range: 30.0-100.0 Comments: Vitamin D deficiency has been defined by the [place] and an Endocrine Society practice guideline as alevel of serum 25-OH vitamin D less than 20 ng/mL (1,2).The Endocrine Society went on to further define vitamin Dinsufficiency as a level between 21 and 29 ng/mL (2).1. IOM ([place]). 2010. Dietary reference intakes for calcium and D. [place]: The National Academies Press.2. Mckenna Christie, Dane MACKENZIE, et al. Evaluation, treatment, and prevention of vitamin D deficiency: an Endocrine Society clinical practice guideline. JCEM. 2010; 96(7):1911-30. :33 HgA1C , Office (28381) HgA1C , Office 6.4 % (Normal) Range: 4.6 - 7.1 :27 Potassium Comments: Test performed at:[facility] [address] [place] [address] K 3.5 mmol/L (Normal) Range: 3.5-5.1 :59 Vitamin D Hydroxy (22169) Comments: PATIENT NOT FASTINGPERFORMED BY: [place] [id number] Vitamin D, 25-Hydroxy 40.6 ng/mL (Normal) Range: 30.0-100.0 Comments: Vitamin D deficiency has been defined by the [place] of[place] and an Endocrine Society practice guideline as alevel of serum 25-OH vitamin D less than 20 ng/mL (1,2).The Endocrine Society went on to further define vitamin Dinsufficiency as a level between 21 and 29 ng/mL (2).1. IOM ([place]). 2010. Dietary reference intakes for calcium and D. [place]: The National Academies Press.2. Delma RIVERA, Mckenna ABDALLA, Dane MACKENZIE, et al. Evaluation, treatment, and prevention of vitamin D deficiency: an Endocrine Society clinical practice guideline. JCEM. 2010; 96(7):1911-. :59 T4, FREE (THYROXINE) Comments: PATIENT NOT FASTINGPERFORMED BY: [employer]70 [facility] Medicalin [place] [id number] Information: [id number] (99781) T4,Free(Direct) 1.22 ng/dL (Normal) Range: 0.82-1.77 :59 T3, FREE (TRIDOTHYRONINE) (10623) Comments: PATIENT NOT FASTINGPERFORMED BY: AwarepointDublin [place] [id number] Triiodothyronine,Free,Serum 3.2 pg/mL (Normal) Range: 2.0-4.4 :59 TSH (63056) Comments: PATIENT NOT FASTINGPERFORMED BY: [facility]6370 [facility] [id number] TSH 2.460 {uIU/mL} (Normal) Range: 0.450-4.500 :59 SED RATE ERYTHROCYTE (27980) Comments: PATIENT NOT FASTINGPERFORMED BY: [facility] Hospital6370 [facility] [id number] Sedimentation Rate-Westergren 3 mm/h (Normal) Range: 0-40 :59 C-REACTIVE PROTEIN (99077) Comments: PATIENT NOT FASTINGPERFORMED BY: [facility]6370 [facility] [id number] C-Reactive Protein, Quant 2.6 mg/L (Normal) Range: 0.0-4.9 :06 TSH (69382) Comments: PATIENT NOT FASTINGPERFORMED BY: [facility]6370 [facility] [id number] TSH 1.920 {uIU/mL} (Normal) Range: 0.450-4.500 :06 CBC with auto diff Comments: PATIENT NOT FASTINGPERFORMED BY: [facility]6370 [facility] [id number] Information: [id number] (45195) Immature Grans (Abs) 0.0 {x10E3/uL} (Normal) Range: [...] 3.77-5.28 WBC 7.9 {x10E3/uL} (Normal) Range: 3.4-10.8 4-Feu-010110:06 METABOLIC PANEL, COMPREHENSIVE Comments: PATIENT NOT FASTINGPERFORMED BY: LabCoTrinitas HospitalHfhxxe5485 [facility] [id number] (30992) ALT (SGPT) 6 [iU]/L (Normal) Range: 0-32 [...] Glucose, Serum 111 mg/dL (Abnormal) Range: 65-99 2-Qno-218259:09 URINE HANSA CULTURE (JEWELS Comments: PATIENT NOT FASTINGPERFORMED BY: LabCoTrinitas HospitalKlnvae0377 [facility] [id number] Information: SRC:[facility] [id number] COL COUNT) (32526) Result 1 CNSNSS (Abnormal) Comments: Coagulase negative [...] S Urine Final report Culture,Comprehens (Abnormal) ananth 9-Kly-741881:54 Urinalysis, Office (70423) UA - LEUKOCYTE ESTERASE Negative (Normal) UA - NITRITE Negative (Normal) URINE UROBILINGN JEWELS TIMED Normal mg/dL (Normal) UA - PROTEIN Negative mg/dL (Normal) UA - PH 6.5 (Normal) UA - BLOOD Negative (Normal) UA - SPECIFIC GRAVITY 1.015 (Normal) UA - KETONES Negative mg/dL (Normal) UA - BILIRUBIN Negative (Normal) UA - GLUCOSE Negative (Normal) 57-Pyi-027643:40 Urine Drug Screen (VISTA) Comments: Has pt arrived? YTest performed at:[facility] [address] [place] [address] THC NEGATIVE (Normal) PCP NEGATIVE [...] MUST BE ORDERED SEPARATELY. USE TESTMNEMONIC: UTCA 01-Ywh-510578:25 Acetaminophen (Tylenol) Level Comments: Test performed at:[facility] [address] [place] [address] ACETAMINOPHEN < 2.0 ug/mL (Abnormal) Range: 10.0-30.0 58-Hol-479123:25 Basic Metabolic Profile (BMP) Comments: Test performed at:[facility] [address] [place] [address] GAP 8 (Normal) Range: 5-15 [...] 126 mg/dLsuggests DIABETES MELLITUS per A.D.A. criteria. 75-Bux-790201:25 CBC W/Diff, Automated Comments: Test performed at:[facility] [address] [place], [place] [id number] Absolute Lymph 0.55 {X10_3/ul} (Abnormal) Range: 0.83-4.51 [...] 4.2-5.4 WBC 11.3 K/mm3 (Abnormal) Range: 4.4-11.0 94-Bri-009850:25 Partial Thromboplast Time Comments: Test performed at:[facility] Yibpshlyjx9189 [facility] [place] [address] PTT 31.9 s (Normal) Range: 24.1-36.2 88-Ctg-632858:25 Prothrombin Time w/INR Comments: Test performed at:[facility] [address] [place] [address] INR 1.1 (Normal) PROTIME 14.0 s (Normal) Range: 11.7-14.9 :22 Basic Metabolic Profile (BMP) Comments: Test performed at:[facility] [address]hibjgirs[address] [place] [address] GAP 8 (Normal) Range: 5-15 CO2 31.0 [...] Blood Cnt No Diff Comments: Test performed at:[facility] [address] [place] [address] MPV 10.0 fL (Normal) Range: 6.2-12.0 [...] Blood Cnt No Diff Comments: Test performed at:[facility] Pcxnhlbdae8058 [facility] [place] [address] MPV 10.4 fL (Normal) Range: [...] Basic Metabolic Profile (BMP) Comments: Test performed at:[facility] Gxkbhvkxzx3251 [place] [address] GAP 8 (Normal) Range: 5-15 CO2 26.0 [...] 126 mg/dLsuggests DIABETES MELLITUS per A.D.A. criteria. 58-Fyo-70029:52 CBC-Complete Blood Cnt No Diff Comments: Test performed at:[facility] Efmbzdrkdb8906 [facility] [address]. [place], [place] [address] MPV 10.0 fL (Normal) Range: 6.2-12.0 PLT [...] 4.2-5.4 WBC 8.7 K/mm3 (Normal) Range: 4.4-11.0 84-Ynx-284437:00 Bedside Glucose Comments: Test performed at:[facility] Qzabuvbkiz0459 [place] [address] BEDSIDE GLU 138 mg/dL (Abnormal) Range: 70-110 Comments: No Action RequiredMANAGEMENT OF PATIENT CARE PER NURSING PROTOCOL 38-Hbh-965354:12 Bedside Glucose Comments: Test performed at:[facility] Czmgazmmou3438 [place] [address] BEDSIDE GLU 108 mg/dL (Normal) Range: 70-110 Comments: No Action RequiredMANAGEMENT OF PATIENT CARE PER NURSING PROTOCOL 98-Yhh-00141:07 VITAMIN B-12 (CYANOCOBALAMIN) Comments: PATIENT WAS FASTINGPERFORMED BY: [facility] Juppac8270 [facility] [id number] (41610) Vitamin B12 498 pg/mL (Normal) Range: 211-946 22-Msi-87358:07 MICROALBUMIN: CREATININE RATIO Comments: PATIENT WAS FASTINGPERFORMED BY: Primary DataTrinitas HospitalMklizm0804 [facility] [id number] ([id number]) AND (62204) Microalb/Creat Ratio 24.7 {mg/g_creat} (Normal) Range: 0.0-30.0 Microalbumin, Urine 36.2 ug/mL (Abnormal) Range: 0.0-17.0 Creatinine, Urine 146.6 mg/dL (Normal) Range: 15.0-278.0 :07 CBC W/AUTO DIFF WBC Comments: PATIENT WAS FASTINGPERFORMED BY: Primary DataMemorial Medical CenterRqmdbg3247 [facility] [id number] Information: [id number] (00259) Immature Grans (Abs) 0.0 {x10E3/uL} (Normal) Range: [...] 7.0 {x10E3/uL} (Normal) Range: 3.4-10.8 :07 TSH (73237) Comments: PATIENT WAS FASTINGPERFORMED BY: Primary DataTrinitas HospitalZwaigc2644 [facility] [id number] TSH 4.510 {uIU/mL} (Abnormal) Range: 0.450-4.500 :07 LIPID PANEL (52216) Comments: PATIENT WAS FASTINGPERFORMED BY: LabESCAPESwithYOUTrinitas HospitalQdvrxn1381 [facility] [id number] VLDL Cholesterol Peg VLDLCH mg/dL (Normal) Range: [...] PANEL, COMPREHENSIVE Comments: PATIENT WAS FASTINGPERFORMED BY: Primary DataTrinitas HospitalVqsyxw1252 [facility] [id number] (70626) ALT (SGPT) 10 [iU]/L (Normal) Range: 0-32 [...] (Abnormal) Range: 65-99 :22 HgA1C , Office (72836) HgA1C , Office 6.9 % (Normal) Range: [...] See Note (Normal) Comments: Results called on 08/07/14152 by Zohreh THOMPSON ([facility]) [phone]. Comments: Copy of report sent to Infection Control Printer MS#[id number] 08/07/14 6209 [facility]. RESULTS PRINTED MS#[id number] S. AUREUS S. aureus PositiveMRSA MRSA Negative 00-Ryv-52714:34 VITAMIN B-12 (CYANOCOBALAMIN) Comments: PATIENT WAS FASTINGPERFORMED BY: PathwrightBeaumont Hospital6370 [facility] [id number] ([id number]) Vitamin B12 1631 pg/mL (Abnormal) Range: 211-946 :34 CBC W/AUTO DIFF WBC Comments: PATIENT WAS FASTINGPERFORMED BY: LabCoTrinitas HospitalDtbzfb4947 [facility] [id number] Information: [id number] (41473) Immature Grans (Abs) 0.0 {x10E3/uL} (Normal) Range: [...] 3.77-5.28 WBC 4.0 {x10E3/uL} (Normal) Range: 3.4-10.8 88-Cuu-35544:34 METABOLIC PANEL, COMPREHENSIVE Comments: PATIENT WAS FASTINGPERFORMED BY: [facility] SouthCoDavid Ville 2126470 [facility] [id number] (22065) ALT (SGPT) 10 [iU]/L (Normal) Range: 0-32 [...] mg/dL (Abnormal) Range: 65-99 :34 LIPID PANEL (35765) Comments: PATIENT WAS FASTINGPERFORMED BY: LabCoTrinitas HospitalGxxhku1301 [facility] [id number] LDL/HDL Ratio 3.3 {ratio_units} (Abnormal) Range: 0.0-3.2 [...] Examination Comments: PATIENT WAS FASTINGPERFORMED BY: [facility] Kpkoyo1574 [facility] [id number] Bacteria None seen (Normal) Epithelial Cells (non renal) 0-10 {/hpf} (Normal) Range: 0 - 10 RBC None seen {/hpf} (Normal) Range: 0 - 2 WBC 0-5 {/hpf} (Normal) Range: 0 - 5 :12 TSH (29650) Comments: PATIENT WAS FASTINGPERFORMED BY: [facility] Odynka0096 [facility] [id number]; non-emergent till apt this week TSH 1.560 {uIU/mL} (Normal) Range: 0.450-4.500 :12 URINALYSIS, W/ MICRO (29597) Comments: PATIENT WAS FASTINGPERFORMED BY: [facility]Co[facility] Wiuznh4053 [facility] [id number] Microscopic Examination See below: (Normal) Comments: Microscopic was indicated and was performed. Microscopic Examination MICRON (Normal) Comments: Microscopic follows if indicated. Nitrite, Urine Negative (Normal) Urobilinogen,Semi-Qn 0.2 mg/dL (Normal) Range: 0.0-1.9 Bilirubin Negative (Normal) Occult Blood Negative (Normal) Ketones Negative (Normal) Glucose Negative (Normal) Protein Trace (Normal) WBC Esterase Negative (Normal) Appearance Clear (Normal) Urine-Color Yellow (Normal) pH 8.0 (Abnormal) Range: 5.0-7.5 Specific Denton 1.014 (Normal) Range: 1.005-1.030 :12 Vitamin D Hydroxy (62532) Comments: PATIENT WAS FASTINGPERFORMED BY: [facility]Co[facility] Veauia9107 [facility] [id number] Vitamin D, 25-Hydroxy 42.2 ng/mL (Normal) Range: 30.0-100.0 Comments: Vitamin D deficiency has been defined by the [place] of[place]icine and an Endocrine Society practice guideline as alevel of serum 25-OH vitamin D less than 20 ng/mL (1,2).The Endocrine Society went on to further define vitamin Dinsufficiency as a level between 21 and 29 ng/mL (2).1. IOM ([place] of Medicine). 2010. Dietary reference intakes for calcium and D. [place]: The National Academies Press.2. Delma MF, Mckenna ABDALLA, Dane MACKENZIE, et al. Evaluation, treatment, and prevention of vitamin D deficiency: an Endocrine Society clinical practice guideline. JCEM. 2010; 96(7):1911-30. :12 MICROALBUMIN: CREATININE RATIO Comments: PATIENT WAS FASTINGPERFORMED BY: Tyto6370 [facility] [id number] (16396) AND (35332) Microalb/Creat Ratio 4.7 {mg/g_creat} (Normal) Range: 0.0-30.0 Creatinine, Urine 49.4 mg/dL (Normal) Range: 15.0-278.0 Microalbumin, Urine 2.3 ug/mL (Normal) Range: 0.0-17.0 :12 METABOLIC PANEL, Comments: PATIENT WAS FASTINGPERFORMED BY: Prestadero6370 [facility] [id number] Information: [id number] COMPREHENSIVE (44960) ALT (SGPT) 12 [iU]/L (Normal) Range: 0-32 [...] mg/dL (Abnormal) Range: 65-99 :12 LIPID PANEL (31385) Comments: PATIENT WAS FASTINGPERFORMED BY: [facility]lingUNC [facility] [id number] LDL/HDL Ratio 2.7 {ratio_units} (Normal) Range: 0.0-3.2 [...] B-12 (CYANOCOBALAMIN) Comments: PATIENT WAS FASTINGPERFORMED BY: BrowserlingUNC Health [facility] [id number] (28655) Vitamin B12 287 pg/mL (Normal) Range: 211-946 :34 HgA1C , Office (58013) HgA1C , Office 6.3 % (Normal) Range: 4.6 - 7.1 :55 Creatine Kinase Total (05683) Comments: PATIENT NOT FASTINGPERFORMED BY: [employer] [facility]ubFirstHealth [facility] [id number] Creatine Kinase,Total,Serum 105 U/L (Normal) Range: 24-173 :55 TSH (22044) Comments: PATIENT NOT FASTINGPERFORMED BY: [employer] citiservi [facility] [id number] TSH 1.590 {uIU/mL} (Normal) Range: 0.450-4.500 :55 METABOLIC PANEL, Comments: PATIENT NOT FASTINGPERFORMED BY: CLARITA [facility] Djfnwg3792 [address] [place] [id number] Information: [id number] COMPREHENSIVE (35969) ALT (SGPT) 13 [iU]/L (Normal) Range: 0-32 [...] (Abnormal) Range: 65-99 :33 HgA1C , Office (98498) HgA1C , Office 6.7 % (Normal) Range: 4.6 - 7.1 :46 MICROALBUMIN: CREATININE RATIO Comments: PATIENT WAS FASTINGPERFORMED BY: [employer] Data Wmarsj5178 [facility] Hospitalblin [place] [id number] (75410) AND (44232) Microalb/Creat Ratio 20.0 {mg/g_creat} (Normal) Range: 0.0-30.0 Microalbumin, Urine 21.7 ug/mL (Abnormal) Range: 0.0-17.0 Creatinine, Urine 108.5 mg/dL (Normal) Range: 15.0-278.0 :46 TSH (93699) Comments: PATIENT WAS FASTINGPERFORMED BY: [employer] Krazac6681 [facility] Hospitalblin [place] [id number] TSH 2.670 {uIU/mL} (Normal) Range: 0.450-4.500 :46 Vitamin D Hydroxy (83897) Comments: PATIENT WAS FASTINGPERFORMED BY: [employer] Fmryvl5095 [facility] Hospitalblin [place] [id number] Vitamin D, 25-Hydroxy 42.9 ng/mL (Normal) Range: 30.0-100.0 Comments: Vitamin D deficiency has been defined by the [place] of[place]icine and an Endocrine Society practice guideline as alevel of serum 25-OH vitamin D less than 20 ng/mL (1,2).The Endocrine Society went on to further define vitamin Dinsufficiency as a level between 21 and 29 ng/mL (2).1. IOM ([place]). 2010. Dietary reference intakes for calcium and D. [place]: The National Academies Press.2. Delma MF, Mckenna [place], Loree-Werner MACKENZIE, et al. Evaluation, treatment, and prevention of vitamin D deficiency: an Endocrine Society clinical practice guideline. JCEM. 2010; 96(7):1911-30. :46 CBC, PLATELETS & AUT DIFF Comments: PATIENT WAS FASTINGPERFORMED BY: [facility]wrightCo[facility] Xoydgn2176 [facility] [id number] Information: [id number] (97571) Immature Grans (Abs) 0.0 {x10E3/uL} (Normal) Range: [...] 3.77-5.28 WBC 8.7 {x10E3/uL} (Normal) Range: 3.4-10.8 54-Pgl-406431:46 VITAMIN B-12 (CYANOCOBALAMIN) Comments: PATIENT WAS FASTINGPERFORMED BY: LabCoTrinitas HospitalZphnjd7404 [facility] [id number] (88673) Vitamin B12 382 pg/mL (Normal) Range: 211-946 49-Hnm-670152:46 METABOLIC PANEL, COMPREHENSIVE Comments: PATIENT WAS FASTINGPERFORMED BY: LabCoTrinitas HospitalGatrhm8199 [facility] [id number] (06454) ALT (SGPT) 15 [iU]/L (Normal) Range: 0-32 [...] Glucose, Serum 130 mg/dL (Abnormal) Range: 65-99 20-Sgr-306453:46 LIPID PANEL (26462) Comments: PATIENT WAS FASTINGPERFORMED BY: LabCoTrinitas HospitalYfrrii7361 [facility] [id number] LDL/HDL Ratio 3.4 {ratio_units} (Abnormal) Range: 0.0-3.2 LDL Cholesterol Calc 130 mg/dL (Abnormal) Range: 0-99 VLDL Cholesterol Peg 57 mg/dL (Abnormal) Range: 5-40 HDL Cholesterol 38 mg/dL (Abnormal) Comments: According to ATP-III Guidelines, HDL-C >59 mg/dL is considered anegative risk factor for CHD. Triglycerides 287 mg/dL (Abnormal) Range: 0-149 Cholesterol, Total 225 mg/dL (Abnormal) Range: 100-199 :44 HgA1C , Office (70899) HgA1C , Office 6.6 % (Normal) Range: 4.6 - 7.1 :43 CBC, Platelets & Auto Diff Comments: PATIENT NOT FASTINGPERFORMED BY: LabCoTrinitas HospitalIbnpfh5343 [facility] [id number] Information: [id number] (20861) Immature Grans (Abs) 0.0 {x10E3/uL} (Normal) Range: [...] (Normal) Range: 3.4-10.8 :43 Metabolic Panel, Basic (20069) Comments: PATIENT NOT FASTINGPERFORMED BY: [facility]6370 [facility] [id number] Calcium, Serum 9.4 mg/dL (Normal) Range: 8.6-10.2 [...] mg/dL (Abnormal) Range: 65-99 :10 HANSA CULTURE-OTHER (61194) Comments: PATIENT NOT FASTINGPERFORMED BY: [facility]6370 [facility] [id number] Information: SRC:THRT [id number] Result 1 RFMNR (Normal) Comments: Mixed growth consisting of multiple gram negative rods and routinerespiratory vicente. Upper Respiratory Culture Final report (Normal) :56 Rapid Strep Test, Office (47413) Rapid Strep Test, Office Negative (Normal) :03 Blood Glucose , Office (10799) Blood Glucose , Office 150 (Normal) :14 PPD (29504) Comments: Lot: [id number]: 12/17Amt: 0.1mlRoute: intradermalSite: R FAGiven by: ANGEL Merlos SKIN TEST INTRADERMAL TB negative (Normal) :39 HgA1C , Office (63809) HgA1C , Office 6.4 % (Normal) Range: 4.6 - 7.1 :31 Microscopic Examination Comments: PATIENT WAS FASTINGPERFORMED BY: [employer] Wrifvq3248 [facility] [id number] Bacteria Few (Normal) Mucus Threads Present (Normal) Epithelial Cells (non renal) 0-10 {/hpf} (Normal) Range: 0 - 10 RBC 0-3 {/hpf} (Normal) Range: 0 - 3 WBC 0-5 {/hpf} (Normal) Range: 0 - 5 :31 MICROALBUMIN: CREATININE RATIO Comments: PATIENT WAS FASTINGPERFORMED BY: [employer] Dunjtd7457 [facility] [id number] (06428) AND (50862) Microalb/Creat Ratio 12.6 {mg/g_creat} (Normal) Range: 0.0-30.0 Microalbumin, Urine 9.2 ug/mL (Normal) Range: 0.0-17.0 Creatinine, Urine 73.3 mg/dL (Normal) Range: 15.0-278.0 :31 CBC WITH MANUAL DIFF Comments: PATIENT WAS FASTINGPERFORMED BY: [employer] Lqduul6972 [facility] [id number] Information: [id number] (24157) Immature Grans (Abs) 0.0 {x10E3/uL} (Normal) Range: [...] PANEL, COMPREHENSIVE Comments: PATIENT WAS FASTINGPERFORMED BY: LabCoTrinitas HospitalClstkk4357 [facility] [id number] (08894) ALT (SGPT) 14 [iU]/L (Normal) Range: 0-32 [...] (Abnormal) Range: 65-99 :31 URINALYSIS, W/ MICRO (28665) Comments: PATIENT WAS FASTINGPERFORMED BY: [facility]pointFirst[facility] [id number] Microscopic Examination See below: (Normal) Microscopic Examination MICRON (Normal) Comments: Microscopic follows if indicated. Nitrite, Urine Negative (Normal) Urobilinogen,Semi-Qn 0.2 mg/dL (Normal) Range: 0.0-1.9 Bilirubin Negative (Normal) Occult Blood Negative (Normal) Ketones Negative (Normal) Glucose Negative (Normal) Protein Negative (Normal) Appearance Clear (Normal) Urine-Color Yellow (Normal) WBC Esterase Negative (Normal) pH 8.5 (Abnormal) Range: 5.0-7.5 Specific Denton 1.018 (Normal) Range: 1.005-1.030 :31 LIPID PANEL (91542) Comments: PATIENT WAS FASTINGPERFORMED BY: [employer]70 [facility] HospitalVidtelUNC Health [facility] [id number] LDL Cholesterol Calc 75 mg/dL (Normal) Range: [...] B-12 (CYANOCOBALAMIN) Comments: PATIENT WAS FASTINGPERFORMED BY: [employer] [facility] [id number] (81640) Vitamin B12 299 pg/mL (Normal) Range: 211-946 :31 Vitamin D Hydroxy (41521) Comments: PATIENT WAS FASTINGPERFORMED BY: [facility] Qjhusi5042 [facility] [id number] Vitamin D, 25-Hydroxy 31.2 ng/mL (Normal) Range: 30.0-100.0 Comments: Vitamin D deficiency has been defined by the [place] of[place]icine and an Endocrine Society practice guideline as alevel of serum 25-OH vitamin D less than 20 ng/mL (1,2).The Endocrine Society went on to further define vitamin Dinsufficiency as a level between 21 and 29 ng/mL (2).1. IOM ([place]). 2010. Dietary reference intakes for calcium and D. [place]: The National Academies Press.2. Delma MF, Mckenna ABDALLA, Dane MACKENZIE, et al. Evaluation, treatment, and prevention of vitamin D deficiency: an Endocrine Society clinical practice guideline. JCEM. 2010; 96(7):1911-30. :31 TSH (86108) Comments: PATIENT WAS FASTINGPERFORMED BY: [facility] Bqgnrp0416 [facility] [id number] TSH 4.190 {uIU/mL} (Normal) Range: 0.450-4.500 :15 HgA1C , Office (90565) HgA1C , Office 6.4 % (Normal) Range: 4.6 - 7.1 :15 Blood Glucose , Office (56100) Blood Glucose , Office 141 (Normal) :19 [...] M.D.October 02, 2012 at 9:24 :48 PM [id number] Signed RB/RB If you are the referring physician and would like to consult with theradiologist who provided this interpretation, please contact Mame Mario at [phone]. If this radiologist is unavailable, you will bedirected to another radiologist to assist. If you are a patient with a question regarding this report, pleasecontactyour referring physician hari benítez. Professional Interpretation Provided By: [facility], Phone , These documents contain legally protected [...] on 10/02/122128 Sign by: Keith Crocker DO 08-Lkf-79100:55 Vitamin D Hydroxy (10106) Comments: PATIENT NOT FASTINGPERFORMED BY: LabCoTrinitas HospitalAolewt8258 [facility] [id number] Information: [id number] Vitamin D, 25-Hydroxy 39.5 ng/mL (Normal) Range: 30.0-100.0 Comments: Vitamin D deficiency has been defined by the [place] of[place] and an Endocrine Society practice guideline as alevel of serum 25-OH vitamin D less than 20 ng/mL (1,2).The Endocrine Society went on to further define vitamin Dinsufficiency as a level between 21 and 29 ng/mL (2).1. IOM ([place]). 2010. Dietary reference intakes for calcium and D. [place]: The National Academies Press.2. Delma MF, Mckenna ABDALLA, Dane MACKENZIE, et al. Evaluation, treatment, and prevention of vitamin D deficiency: an Endocrine Society clinical practice guideline. JCEM. 2010; 96(7):1911-30. :41 ESOPHAGUS ONLY Radiology Report See Note (Normal) [...] Valenzuela M.D.September 17, 2012 at 9:02:07 AM [id number] Signed GP/GP If you are the referring physician and would like to consult with theradiologist damaso davenport provided this interpretation, please contact Mame Mccoy at [phone]. If this radiologist is unavailable, youwill be directed to another radiologist to assist. If you are a patient wi th a question regarding this report, pleasecontactyour referring physician directly. Professional Interpretation Provided By: [facility], Phone , These documents contain l egally [...] return or destructionof these documents. Dictated on 09/17/12719 by Didi Valenzuela MDscribed on 09/17/12908 by ITS IMPORTSign by Florian Valenzuela MD on 09/17/12908 Sign by: Florian Valenzuela MD 17-Sep-2012 B12 284 pg/mL Range: 211-946 7:31 (Normal) Comments: Performed at: [address] [id number] Director: Demarco Mccormack PhD, Phone: [phone] 17-Sep-2012 BID 0.10 mg/dL Range: 0.00-0.30 7:31 (Normal) 79-Bkr-74090:31 CBCMD ANC 3.6 3/uL (Normal) Range: 2.0-7.7 [...] IMPAIRED HOMEOSTASIS per A.D.A. criteria. :31 [facility] See Note {CFU/mL} (Normal) Comments: COLONY COUNT [...] 200-240 mg/dL Borderline >240 mg/dL High Risk :36 CHEST WITH CONTRAST Radiology Report See Note [...] Simpson M.D.September 13, 2012 at 2:32:10 PM [id number] Signed DL/DL If you are the referring physician and would like to consult with theradiologist who provided this interpretation, please co ntact Mame Lancaster at [phone]. If this radiologist is unavailable, youwillbe directed to another radiologist to assist. If you are a patient with a question regarding this report, pleasecont actyour referring physician directly. Professional Interpretation Provided By: [facility], Phone , These documents contain legally protected [...] 09/13/12 1437 Sign by: Theo Simpson MD 81-Puu-14451:36 THYROID Radiology Report See Note (Normal) Comments: [...] Valenzuela M.D.September 13 13 at 2:58:06 PM [id number] Signed GP/GP If you are the referring physician and would like to consult with theradiologist who provided this interpretation, please contact Brown chaidez M.D. at [phone]. If this radiologist is unavailable, youwill be directed to another radiologist to assist. If you are a patient with a question regarding this report, pleasecontactyour refer ring physician directly. Professional Interpretation Provided By: [facility], Phone , These documents contain legally protected [...] documents. Dictated on 09/13/12 0846 by Nicolas Hammer,GabrieleTranscribed on 09/13/12 1502 by ITS IMPORTSign by Nicolas ARAGON,Florian on 09/13/12 1503 Sign by: Nicoals ARAGON,Florian 84-Pnn-71552:28 CRE Comments: CALL 8665 WITH RESULTSRESULTS CALLED TO DEBBIE 09/13/12 0801 AURA DIAZ.REPORT READ BACK BY SAME . GFR 105 mL/min (Normal) GFRAA 127 mL/min (Normal) CREAT 0.6 mg/dL (Normal) Range: 0.6-1.0 :23 URINE HANSA CULTURE-JEWELS COL Comments: PATIENT NOT FASTINGPERFORMED BY: LabCoTrinitas HospitalNdvqcv8549 [facility] [id number] Information: SRC:UR [id number] COUNT (53089) Result 1 NG36 (Normal) Comments: No growth in 36 - 48 hours. Urine Culture,Comprehensive Final report (Normal) :39 Urinalysis, Office (05574) UA - BILIRUBIN Negative (Normal) UA - BLOOD Non Hemolyzed Trace (Normal) UA - GLUCOSE Negative (Normal) UA - KETONES Negative mg/dL (Normal) UA - LEUKOCYTE ESTERASE Negative (Normal) UA - NITRITE Negative (Normal) UA - PH 6.5 (Normal) UA - PROTEIN Negative mg/dL (Normal) UA - SPECIFIC GRAVITY 1.015 (Normal) URINE UROBILINGN JEWELS TIMED Normal mg/dL (Normal) :35 HgA1C , Office (45905) HgA1C , Office 6.3 % (Normal) Range: 4.6 - 7.1 17-Hky-87171:35 Blood Glucose , Office (01368) Blood Glucose , Office 143 (Normal) :54 Comp. Metabolic Panel (14) Comments: PATIENT WAS FASTINGPERFORMED BY: CLARITA Primary DataTrinitas HospitalTevwxk5551 [facility] [id number] Information: 07/08@830AM 07/09@830AM ALT (SGPT) 11 [iU]/L [...] Creatinine Clearance Comments: PATIENT WAS FASTINGPERFORMED BY: PathwrightBeaumont Hospital6370 [facility] [id number] Creatinine Clearance 70 mL/min (Abnormal) Range: 88-128 Comments: The above range is based on 1.73 square meter average body surfacearea. Creatinine, Ur 24hr 777.0 {mg/24_hr} (Abnormal) Range: 800.0-1800.0 Creatinine, Urine 37.9 mg/dL (Normal) Range: 15.0-278.0 :54 Lipid Panel With LDL/HDL Comments: PATIENT WAS FASTINGPERFORMED BY: [employer] Vkgpjq1112 Doyle [facility]First[facility] [id number] Ratio LDL/HDL Ratio 2.6 {ratio_units} (Normal) Range: [...] Qn, 24-Hr Comments: PATIENT WAS FASTINGPERFORMED BY: [employer] Data Rxnkks7508 Doyle RafterFirst[facility] [id number] Urine Prot,24hr calculated <30.8 {mg/24_hr} Range: 30.0-150.0 (Normal) Protein,Total,Urine <1.5 mg/dL (Normal) Range: 0.0-15.0 Comments: Verified by repeat analysis TSH 2.550 {uIU/mL} Comments: PATIENT WAS FASTINGPERFORMED BY: Primary Data Wjaeeg0917 [facility] [id number] :54 (Normal) Range: 0.450-4.500 Vitamin B12 271 pg/mL (Normal) Comments: PATIENT WAS FASTINGPERFORMED BY: Primary Data Uxdkih5364 [facility] [id number] :54 Range: 211-946 :08 CBC WITH MANUAL DIFF Comments: PATIENT NOT FASTINGPERFORMED BY: Primary Data Sbqtux8876 [facility] TopmissionUNC Health [facility] [id number] Information: [id number] (18643) Immature Grans (Abs) 0.0 {x10E3/uL} (Normal) Range: [...] 3.77-5.28 WBC 4.0 {x10E3/uL} (Normal) Range: 4.0-10.5 7-Ora-210303:01 FECAL OCCULT- Tubes sent home (72774) FECAL OCCULT HGB ASSAY, QUAL, 1-3 SIMULTANEOU negative (Normal) :42 BILAT SCRN DIGITAL & CAD Radiology Report [...] Valenzuela M.D.April 30, 2012 at 8:16:04 AM [id number] Signed GP/GP If you are the referring physician and would like to consult with theradiologist who prov ided this interpretation, please contact Mame Mccoy at [phone]. If this radiologist is unavailable, youwill be directed to another radiologist to assist. If you are a patient with a qu estion regarding this report, pleasecontactyour referring physician directly. Professional Interpretation Provided By: [facility], Phone , These documents contain legally protected [...] destructionofthese d ocuments. Dictated on 04/30/12741 by Didi Valenzuela MDscribed on 04/30/12828 by ITS IMPORTSign by Florian Valenzuela MD on 04/30/12829 Sign by: Nicolas ARAGON,Florian :44 HgA1C , Office (59898) HgA1C , Office 6.3 % (Normal) Range: 4.6 - 7.1 :44 Blood Glucose , Office (73266) Blood Glucose , Office 150 (Normal) Comments: has part of a cinnamon bun for breakfast :52 Microscopic Examination Comments: PATIENT WAS FASTINGPERFORMED BY: LabESCAPESwithYOUTrinitas HospitalGrijpk3570 [facility] [id number] Bacteria None seen (Normal) Mucus Threads Present (Normal) Epithelial Cells (non renal) 0-10 {/hpf} (Normal) Range: 0 - 10 RBC 0-3 {/hpf} (Normal) Range: 0 - 3 WBC 0-5 {/hpf} (Normal) Range: 0 - 5 :52 CBC WITH MANUAL DIFF Comments: PATIENT WAS FASTINGPERFORMED BY: LabFindTheBest6370 [facility] HospitalVidtelUNC Health Lenoir [id number] Information: [id number] (09330) Immature Grans (Abs) 0.0 {x10E3/uL} (Normal) Range: [...] (Normal) Range: 4.0-10.5 :52 URINALYSIS, W/ MICRO (59541) Comments: PATIENT WAS FASTINGPERFORMED BY: [employer] Chalkboard [facility] [id number] Microscopic Examination See below: (Normal) Nitrite, Urine Negative (Normal) Urobilinogen,Semi-Qn 1.0 mg/dL (Normal) Range: 0.0-1.9 Bilirubin Negative (Normal) Occult Blood Negative (Normal) Ketones Negative (Normal) Glucose Negative (Normal) Protein 2+ (Abnormal) WBC Esterase Negative (Normal) Appearance Clear (Normal) Urine-Color Yellow (Normal) pH 7.0 (Normal) Range: 5.0-7.5 Specific [place] 1.029 (Normal) Range: 1.005-1.030 :52 TSH (04786) Comments: PATIENT WAS FASTINGPERFORMED BY: Rarus InnovationsTrinitas HospitalDmjdpz9893 [facility] [id number] TSH 2.060 {uIU/mL} (Normal) Range: 0.450-4.500 :52 METABOLIC PANEL, COMPREHENSIVE Comments: PATIENT WAS FASTINGPERFORMED BY: Rarus InnovationsTrinitas HospitalZvxtor0791 [facility] [id number] (37823) ALT (SGPT) 16 [iU]/L (Normal) Range: 0-40 [...] mg/dL (Abnormal) Range: 65-99 :52 LIPID PANEL (20786) Comments: PATIENT WAS FASTINGPERFORMED BY: BrowserlingUNC Health [facility] [id number] LDL/HDL Ratio 2.2 {ratio_units} (Normal) Range: 0.0-3.2 [...] CREATININE RATIO Comments: PATIENT WAS FASTINGPERFORMED BY: Univa70 Kai MedicalUNC Health Lenoir [id number] (67123) AND (07265) Microalb/Creat Ratio 822.1 {mg/g_creat} (Abnormal) Range: 0.0-30.0 Microalbumin, Urine 844.3 ug/mL (Abnormal) Range: 0.0-17.0 Creatinine, Urine 102.7 mg/dL (Normal) Range: 15.0-278.0 18-Cld-328898:18 HgA1C , Office (79847) HgA1C , Office 6.3 % (Normal) Range: 4.6 - 7.1 53-Epq-921121:16 CHEST WITH CONTRAST Radiology Report See Note [...] radiologist regarding this report, please call our [id number] line @ Dictated on 12/14/11 1033 by Nicolas ARAGON,[facility] bed on 12/14/11 1438 by ITS IMPORTSign by Folrian Valenzuela MD on 12/14/11 1439 Sign by: Florian Valenzuela MD 05-Dec-20119:19 CBC WITH MANUAL DIFF Comments: PATIENT WAS FASTINGPERFORMED BY: LabCoTrinitas HospitalWtgzbv0584 [facility] [id number] Information: [id number] (33616) Immature Grans (Abs) 0.0 {x10E3/uL} (Normal) Range: [...] PANEL, COMPREHENSIVE Comments: PATIENT WAS FASTINGPERFORMED BY: [employer]6370 [facility] [id number] (57048) ALT (SGPT) 14 [iU]/L (Normal) Range: 0-40 [...] mg/dL (Abnormal) Range: 65-99 :19 LIPID PANEL (16735) Comments: PATIENT WAS FASTINGPERFORMED BY: 410 Labs70 [facility] [id number]; appt 12-21-11 LDL/HDL Ratio 3.0 {ratio_units} Range: [...] {units} (Normal) Comments: PATIENT NOT FASTINGPERFORMED BY: SeaWell Networkslin6370 [facility] [id number] BY: Primary Data[address] [id number] 10:24 Range: 0-19 Comments: Negative <20 Weak positive 20 - 39 Moderate positive 40 - 59 Strong positive >59 1-Kmz-392974:24 EBV Panel (15149) Comments: PATIENT NOT FASTINGPERFORMED BY: SeaWell Networkslin6370 [facility] [id number] BY: [employer] [address] [id number] Interpretation: SPRCS (Normal) Comments: EBV Interpretation Chart [...] <0.9 Equivocal 0.9 - 1.0 Positive >1.0 1-Vqk-285813:24 SED RATE ERYTHROCYTE Comments: PATIENT NOT FASTINGPERFORMED BY: [place] 8025470 [facility] [id number] BY: [address] [id number] (10614) Sedimentation Rate-Westergren 6 mm/h (Normal) Range: 0-40 3-Yqx-368418:24 C-REACTIVE PROTEIN (20470) Comments: PATIENT NOT FASTINGPERFORMED BY: [place] 8025470 [facility] [id number] BY: [address] [id number] C-Reactive Protein, Quant 2.1 mg/L (Normal) Range: 0.0-4.9 0-Tvv-077747:24 TSH (46619) Comments: PATIENT NOT FASTINGPERFORMED BY: [address] [id number] BY: [address] [id number] TSH 1.610 {uIU/mL} (Normal) Range: 0.450-4.500 8-Zkz-460621:24 RHEUMATOID FACTOR-QUANT Comments: PATIENT NOT FASTINGPERFORMED BY: [place] 8025470 [facility] [id number] BY: [address] [id number] (58885) RA Latex Turbid. 8.4 {IU/mL} (Normal) Range: 0.0-13.9 9-Jbl-944169:24 [place] (ANTINUCLEAR ANTIBODY) Comments: PATIENT NOT FASTINGPERFORMED BY: [place] 8025470 [facility] [id number] BY: LabCoJoe Ville 396117 [facility] [id number] (72963) [place] Direct Negative (Normal) 9-Gqj-736984:24 CBC WITH MANUAL DIFF Comments: PATIENT NOT FASTINGPERFORMED BY: [facility] Ugkinm8419 [facility] [id number] BY: LabCo[address] [id number] Inf ormation: [id number] (90168) Immature Grans (Abs) 0.0 {x10E3/uL} (Normal) Range: [...] 3.80-5.10 WBC 4.6 {x10E3/uL} (Normal) Range: 4.0-10.5 7-Hmh-306015:24 METABOLIC PANEL, Comments: PATIENT NOT FASTINGPERFORMED BY: CB [facility] Erpcoj0008 Vivek NunnEcu Health [facility] Hospitalhadley [place] [id number] BY: BN [facility] Uxhfxpvmnb0985 [facility] [id number]; appt 12-21-11 COMPREHENSIVE (09761) ALT (SGPT) 13 [iU]/L (Normal) Range: 0-40 [...] Glucose, Serum 118 mg/dL (Abnormal) Range: 65-99 7-Luh-975326:51 HANSA CULTURE-OTHER (31711) Comments: PATIENT NOT FASTINGPERFORMED BY: CLARITA LabCoTrinitas HospitalXxmfkn3665 [facility] [id number] Information: SRC:AIDAN [id number] Result 1 RRF (Normal) Comments: Routine respiratory vicente Upper Respiratory Culture Final report (Normal) 07-Nov-20119:19 Rapid Strep Test, Office (06297) Rapid Strep Test, Office Negative (Normal) 17-Imv-696787:16 HgA1C , Office (05030) HgA1C , Office 6.1 % (Normal) Range: 4.6 - 7.1 70-Vdj-160457:16 Blood Glucose , Office (82082) Blood Glucose , Office 141 (Normal) 32-Txg-796313:10 ABDOMEN/PELVIS WITH CONTRAST Radiology Report See Note [...] IMPORTSign by Florian Valenzuela MD on 08/01/11 1410 Si gn by: Florian Valenzuela MD 23-Ogs-224301:39 CHEST WITH CONTRAST Radiology Report See Note [...] noted, distal end at the level of Y0qtiiz. Normal osseous structures. There is limited visualization of the liver, spleen w ithout ademonstratedabnormality. IMPRESSION:No pulmonary embolism. No aortic dissection. Nonspecific two to 3-mmsubtle nodular density at right upper lobe, image 145 probably representatypically atelec tatic change. Dictated on 04/21/11 1104 by Leonard Odell MDranscribed on 04/22/11 1013 by ITS IMPORTSign by Jordan Odell MD on 04/22/11 1014 Sign by: Jordan Odell MD 48-Vhc-428818:29 MICROALBUMIN: CREATININE RATIO Comments: PATIENT WAS FASTINGPERFORMED BY: [facility]6370 [facility] [id number] (44313) AND (91117) Microalb/Creat Ratio 11.8 {mg/g_creat} (Normal) Range: 0.0-30.0 Microalbumin, Urine 7.3 ug/mL (Normal) Range: 0.0-17.0 Creatinine, Urine 61.9 mg/dL (Normal) Range: 15.0-278.0 :29 LIPID PANEL (39615) Comments: PATIENT WAS FASTINGPERFORMED BY: [employer]6370 [facility] [id number]; appt 07/25/11 VLDL Cholesterol Peg VLDLCH mg/dL [...] MANUAL DIFF Comments: PATIENT WAS FASTINGPERFORMED BY: [employer]6370 [facility] [id number] Information: [id number] (31334) Immature Grans (Abs) 0.0 {x10E3/uL} (Normal) Range: [...] 3.80-5.10 WBC 5.7 {x10E3/uL} (Normal) Range: 4.0-10.5 69-Qvh-417635:29 METABOLIC PANEL, COMPREHENSIVE Comments: PATIENT WAS FASTINGPERFORMED BY: LabCoTrinitas HospitalIhzfzp0206 [facility] [id number] (21077) ALT (SGPT) 12 [iU]/L (Normal) Range: 0-40 [...] Glucose, Serum 120 mg/dL (Abnormal) Range: 65-99 04-Zgp-40749:46 THYROID Radiology Report See Note (Normal) Comments: [...] Odell MD on 03/28/11 1149 Sign by: Jose R ARAGON,[facility] :10 CHEST, PA AND LATERAL Radiology Report [...] 1019 Sign by: ___ Florian Valenzuela MD 77-Pha-43305:47 SOFT TISSUE NECK WITH CONTRAST Radiology Report [...] malformation. Normal bilateral parotid glands. 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 Normal bilateral carotid [...] 01/24/11 1017 Sign by: Florian Valenzuela MD 97-Ere-40683:15 CBC WITH MANUAL DIFF Comments: PATIENT WAS FASTINGPERFORMED BY: LabBeaumont Hospital6370 [facility] [id number] Information: [id number] (77519) Immature Grans (Abs) 0.0 {x10E3/uL} (Normal) Range: [...] 3.80-5.10 WBC 7.0 {x10E3/uL} (Normal) Range: 4.0-10.5 98-Sbj-46141:15 METABOLIC PANEL, COMPREHENSIVE Comments: PATIENT WAS FASTINGPERFORMED BY: LabCoTrinitas HospitalTpdwpe3742 [facility] [id number] (12889) ALT (SGPT) 10 [iU]/L (Normal) Range: 0-40 [...] mg/dL (Abnormal) Range: 65-99 :15 LIPID PANEL (18735) Comments: PATIENT WAS FASTINGPERFORMED BY: SeaWell Networkslin6370 [facility] [id number]; has f/u 04/20/11 LDL/HDL Ratio 2.5 {ratio_units} (Normal) Range: 0.0-3.2 LDL Cholesterol Calc 94 mg/dL (Normal) Range: 0-99 VLDL Cholesterol Peg 46 mg/dL (Abnormal) Range: 5-40 HDL Cholesterol 37 mg/dL (Abnormal) Comments: According to ATP-III Guidelines, HDL-C >59 mg/dL is considered anegative risk factor for CHD. Triglycerides 230 mg/dL (Abnormal) Range: 0-149 Cholesterol, Total 177 mg/dL (Normal) Range: 100-199 :15 HgA1C , Office (74095) Comments: PATIENT WAS FASTINGPERFORMED BY: LabEchodio Coezzh2713 [facility] [id number] Glycohemoglobin (GHb), Total 7.7 % (Normal) Comments: Diabetic Adult <9.0 Healthy Adult 3.9 - 7.3 (DCCT/NGSP) Current ADA guide lines recommend a treatment goal of <7.0% HgbA1c for diabetic patients, which corresponds to a <9.0% Glycohemoglobin result with this method. :50 Blood Glucose , Office (54448) Blood Glucose , Office 160 (Normal) :48 [...] = 500 mg/dL :33 HgA1C , Office (82893) HgA1C , Office 6.5 % (Normal) Range: 4.6 - 7.1 :33 Blood Glucose , Office (81368) Blood Glucose , Office 154 (Normal) 23-Kbc-071006:11 Influenza A, H1N1, RT PCR Comments: PERFORMED BY: Primary Data[address] [id number] BY: Primary Data[address] [id number] Information: SRC:NL Subtype Novel H1N1 by Negative (Normal) PCR Type Influenza A by Negative (Normal) PCR Viral FLUABN (Normal) Comments: PERFORMED BY: Primary Data[address] [id number] BY: Primary Data[address] [id number] :11 Culture,Rapid,Influenz Comments: Negative:No Influenza A or B detected. a :04 Urinalysis, Office (43936) UA - BILIRUBIN Negative (Normal) UA - BLOOD Negative (Normal) UA - GLUCOSE Negative (Normal) UA - KETONES Negative mg/dL (Normal) UA - LEUKOCYTE ESTERASE Negative (Normal) UA - NITRITE Negative (Normal) UA - PH 6.0 (Normal) UA - PROTEIN Negative mg/dL (Normal) UA - SPECIFIC GRAVITY 1.025 (Normal) URINE UROBILINGN JEWELS TIMED Normal mg/dL (Normal) :59 Vitamin D Hydroxy (20221) Comments: PATIENT WAS FASTINGPERFORMED BY: Primary Data[address] [id number] Vitamin D, 25-Hydroxy 32.0 ng/mL (Normal) Range: 32.0-100.0 Comments: Recent studies consider the lower limit of 32.0 ng/mL to be athreshold for optimal health.Jose MAYA. J Nutr. 2004;135(2):317-22. 4:59 METABOLIC PANEL, Comments: PATIENT WAS FASTINGPERFORMED BY: LabCoTrinitas HospitalUhjlxo9365 [facility] [id number] Information: [id number] COMPREHENSIVE (85266) ALT (SGPT) 9 [iU]/L (Normal) Range: 0-40 [...] mg/dL (Abnormal) Range: 65-99 :59 LIPID PANEL (71855) Comments: PATIENT WAS FASTINGPERFORMED BY: [employer]6370 [facility] [id number] LDL Cholesterol Calc 87 mg/dL (Normal) Range: [...] MANUAL DIFF Comments: PATIENT WAS FASTINGPERFORMED BY: LabFindTheBest6370 [facility] [id number] Information: ADD [id number] AND DRAW FEE [id number] (85014) Immature Grans (Abs) 0.0 {x10E3/uL} (Normal) Range: [...] CREATININE RATIO Comments: PATIENT WAS FASTINGPERFORMED BY: Rarus InnovationsTrinitas HospitalUsrqqn8335 [facility] [id number] (92912) AND (78802) Creatinine, Urine 87.5 mg/dL (Normal) Range: 15.0-278.0 Microalb/Creat Ratio 4.5 {mg/g_creat} (Normal) Range: 0.0-30.0 Microalbumin, Urine 3.9 ug/mL (Normal) Range: 0.0-17.0 :57 METABOLIC PANEL, COMPREHENSIVE Comments: PATIENT WAS FASTINGPERFORMED BY: Primary DataTrinitas HospitalJrfbhj0455 [facility] [id number] (15849) ALT (SGPT) 12 [iU]/L (Normal) Range: 0-40 [...] mg/dL (Abnormal) Range: 65-99 :57 LIPID PANEL (91127) Comments: PATIENT WAS FASTINGPERFORMED BY: [employer] Ptdhpx1345 [facility] [id number] LDL Cholesterol Calc 138 mg/dL (Abnormal) Range: 0-99 LDL/HDL Ratio 2.9 {ratio_units} (Normal) Range: 0.0-3.2 HDL Cholesterol 47 mg/dL (Normal) Comments: According to ATP-III Guidelines, HDL-C >59 mg/dL is considered anegative risk factor for CHD. VLDL Cholesterol Peg 29 mg/dL (Normal) Range: 5-40 Cholesterol, Total 214 mg/dL (Abnormal) Range: 100-199 Triglycerides 147 mg/dL (Normal) Range: 0-149 :05 HgA1C , Office (86445) HgA1C , Office 6.5 % (Normal) Range: 4.6 - 7.1 :05 Blood Glucose , Office (28941) Blood Glucose , Office 140 (Normal) :35 MICROALBUMIN: CREATININE RATIO Comments: PATIENT WAS FASTINGPERFORMED BY: LabCoTrinitas HospitalPwwtot0385 [facility] [id number] (84018) AND (31210) Creatinine, Urine 94.9 mg/dL (Normal) Range: 15.0-278.0 Microalb/Creat Ratio 10.7 {mg/g_creat} (Normal) Range: 0.0-30.0 Microalbumin, Urine 10.2 ug/mL (Normal) Range: 0.0-17.0 :35 CBC WITH MANUAL DIFF Comments: PATIENT WAS FASTINGPERFORMED BY: PathwrightCoTrinitas HospitalJvajuf7365 [facility] [id number] Information: [id number] (20703) Baso (Absolute) 0.0 {x10E3/uL} (Normal) Range: 0.0-0.2 [...] PANEL, COMPREHENSIVE Comments: PATIENT WAS FASTINGPERFORMED BY: LabCoTrinitas HospitalAergye4993 [facility] [id number] (54052) ALT (SGPT) 12 [iU]/L (Normal) Range: 0-40 [...] mg/dL (Abnormal) Range: 65-99 :35 LIPID PANEL (39441) Comments: PATIENT WAS FASTINGPERFORMED BY: [facility] Biyszp9650 [place] [id number] LDL Cholesterol Calc 103 mg/dL (Abnormal) Range: 0-99 LDL/HDL Ratio 3.0 {ratio_units} (Normal) Range: 0.0-3.2 HDL Cholesterol 34 mg/dL (Abnormal) Comments: According to ATP-III Guidelines, HDL-C >59 mg/dL is considered anegative risk factor for CHD. VLDL Cholesterol Peg 38 mg/dL (Normal) Range: 5-40 Cholesterol, Total 175 mg/dL (Normal) Range: 100-199 Triglycerides 190 mg/dL (Abnormal) Range: 0-149 :31 HgA1C , Office (02331) HgA1C , Office 6.2 % (Normal) Range: 4.6 - 7.1 :31 Blood Glucose , Office (46176) Blood Glucose , Office 113 (Normal) :03 BILAT SCRN DIGITAL & CAD Radiology Report See Note (Normal) Comments: Exam Number: [id number] MAMMOGRAPHY - BILATERAL SCREENING INDICATION:Routine annual screening [...] of attaching a ResultCode to this exam.ADDENDUM: [id number] HPBI/MDS Reported By: BRIAN JIMENEZ M.D. :02 DEXA BONE DENSITY STUDY () Radiology Report See Note (Normal) Comments: Exam Number: [id number] CLINICAL:Assess bone density EXAMINATION:DUAL ENERGY X-RAY ABSORPTIOMETRY / DEXA. TECHNIQUE:Bone Density Measurements (BMD) of left hip and left forearm wereobtained using a COADE dual energy scanner. COMPARISON:A report from 2001 [...] NIH Osteoporosis and Related Bone Diseases http://www.osteo.org2. Swinging Cut Off Saw Operator ational Society for Clinical Densitometryhttp://www.iscd.org3. National Osteoporosis Foundation http://www.nof.org Reported By: NELLY LINCOLN M.D. :11 HgA1C , Office (27093) HgA1C , Office 6.2 % (Normal) Range: 4.6 - 7.1 :11 Blood Glucose , Office (14639) Blood Glucose , Office 186 (Normal) :25 TSH (20039) Comments: PATIENT WAS FASTINGPERFORMED BY: LabCo Gvoeqk1923 [facility] [id number] TSH 2.340 {uIU/mL} (Normal) Range: 0.450-4.500 :25 METABOLIC PANEL, COMPREHENSIVE Comments: PATIENT WAS FASTINGPERFORMED BY: LabCo Agwlxm8763 [facility] [id number] (57420) ALT (SGPT) 10 [iU]/L (Normal) Range: 0-40 [...] Glucose, Serum 130 mg/dL (Abnormal) Range: 65-99 :25 CBC WITH MANUAL DIFF Comments: PATIENT WAS FASTINGPERFORMED BY: LabBeaumont Hospital6370 [facility] [id number] Information: ADD DRAW FEE [id number] AND [id number] (06584) Baso (Absolute) 0.0 {x10E3/uL} (Normal) Range: 0.0-0.2 [...] {x10E3/uL} (Normal) Range: 4.0-10.5 :25 LIPID PANEL (23384) Comments: PATIENT WAS FASTINGPERFORMED BY: [facility]6370 [facility] [id number] LDL/HDL Ratio 2.6 {ratio_units} (Normal) Range: 0.0-3.2 Cholesterol, Total 183 mg/dL (Normal) Range: 100-199 HDL Cholesterol 34 mg/dL (Abnormal) Comments: According to ATP-III Guidelines, HDL-C >59 mg/dL is considered anegative risk factor for CHD. LDL Cholesterol Calc 90 mg/dL (Normal) Range: 0-99 Triglycerides 295 mg/dL (Abnormal) Range: 0-149 VLDL Cholesterol Peg 59 mg/dL (Abnormal) Range: 5-40 :02 HgA1C , Office (43704) HgA1C , Office 6.2 % (Normal) Range: 4.6 - 7.1 :02 Blood Glucose , Office (13533) Blood Glucose , Office 152 (Normal) :02 HEPATIC FUNCTION PANEL Comments: PATIENT WAS FASTINGPERFORMED BY: Primary DataTrinitas HospitalTyytec3283 [facility] [id number] (59545) Alkaline Phosphatase, S 63 [iU]/L (Normal) Range: 25-165 ALT (SGPT) 13 [iU]/L (Normal) Range: 0-40 AST (SGOT) 14 [iU]/L (Normal) Range: 0-40 Bilirubin, Direct 0.10 mg/dL (Normal) Range: 0.00-0.40 Bilirubin, Total 0.4 mg/dL (Normal) Range: 0.1-1.2 Albumin, Serum 4.6 g/dL (Normal) Range: 3.6-4.8 Protein, Total, Serum 7.0 g/dL (Normal) Range: 6.0-8.5 :02 LIPID PANEL (09106) Comments: PATIENT WAS FASTINGPERFORMED BY: [facility]6370 [facility] [id number] LDL Cholesterol Calc 114 mg/dL (Abnormal) Range: 0-99 LDL/HDL Ratio 3.6 {ratio_units} (Abnormal) Range: 0.0-3.2 HDL Cholesterol 32 mg/dL (Abnormal) Comments: According to ATP-III Guidelines, HDL-C >59 mg/dL is considered anegative risk factor for CHD. Triglycerides 319 mg/dL (Abnormal) Range: 0-149 VLDL Cholesterol Peg 64 mg/dL (Abnormal) Range: 5-40 Cholesterol, Total 210 mg/dL (Abnormal) Range: 100-199 :45 HgA1C , Office (76569) HgA1C , Office 6.2 % (Normal) Range: 4.6 - 7.1 :45 Blood Glucose , Office (21396) Blood Glucose , Office 193 (Normal) :34 MICROALBUMIN: CREATININE RATIO Comments: PATIENT WAS FASTINGPERFORMED BY: CLARITA ASSET4lin6370 [facility] [id number] (87976) AND (60781) Creatinine, Urine 126.3 mg/dL (Normal) Range: 15.0-278.0 Microalb/Creat Ratio 7.6 {mg/g_creat} (Normal) Range: 0.0-30.0 Microalbumin, Urine 9.6 ug/mL (Normal) Range: 0.0-17.0 :34 METABOLIC PANEL, COMPREHENSIVE Comments: PATIENT WAS FASTINGClinical Information: ADD [id number] CC:3302PERFORMED BY: [place]6370 [facility] [id number] (91529) A/G Ratio 1.7 (Normal) Range: 1.1-2.5 Albumin, [...] FUNCTION PANEL Comments: PATIENT WAS FASTINGPERFORMED BY: aiHit LabFindTheBest6370 [facility] [id number] (99239) Bilirubin, Direct 0.08 mg/dL (Normal) Range: 0.00-0.40 :34 LIPID PANEL (99358) Comments: PATIENT WAS FASTINGPERFORMED BY: aiHit LabESCAPESwithYOUTrinitas HospitalEtzbfd9051 [facility] [id number] Cholesterol, Total 186 mg/dL (Normal) Range: 100-199 HDL Cholesterol 38 mg/dL (Abnormal) Comments: According to ATP-III Guidelines, HDL-C >59 mg/dL is considered anegative risk factor for CHD. LDL Cholesterol Calc 102 mg/dL (Abnormal) Range: 0-99 LDL/HDL Ratio 2.7 {ratio_units} (Normal) Range: 0.0-3.2 Triglycerides 232 mg/dL (Abnormal) Range: 0-149 VLDL Cholesterol Peg 46 mg/dL (Abnormal) Range: 5-40 08-Ihs-679866:36 HgA1C , Office (94816) HgA1C , Office 6.3 % (Normal) Range: 4.6 - 7.1 77-Ndj-210281:36 Blood Glucose , Office (45715) Blood Glucose , Office 129 (Normal) 0-Sea-298588:12 BILAT SCRN DIGITAL & CAD Radiology Report See Note (Normal) Comments: Exam Number: [id number] MAMMOGRAM, BILATERAL SCREENING DIGITAL AND CAD HISTORY: [...] 1992 (MQSA). The mammograms werealso examined w Roux[employer] computer-aided detection software ([employer], [employer], [employer].). Reported By: BRIAN JIMENEZ M.D. 85-Kia-788050:57 HgA1C , Office (97244) HgA1C , Office 6.3 % (Normal) Range: 4.6 - 7.1 68-Npp-455026:57 Blood Glucose , Office (55550) Blood Glucose , Office 111 (Normal) :40 COMP METABOLIC A/G 1.1 {RATIO} (Normal) Range: [...] for patient's is the eGFRmultiplied by 1.212. [facility] Laboratory uses the abbreviated Modification of [...] Disease W/O Kidney Disease>/= 90 Stage One Prompd74 - 89 Stage Two Suspect Decreased GFR30 [...] D BILI 0.07 mg/dL (Normal) Range: 0.00-0.30 :40 LIPID CHOL 223 mg/dL (Abnormal) Comments: <200 [...] mg/dL VLDL 28 mg/dL (Normal) Range: 5-40 :30 HgA1C , Office (00485) HgA1C , Office 6.2 % (Normal) Range: 4.6 - 7.1 :30 Blood Glucose , Office (41301) Blood Glucose , Office 167 (Normal) :33 [...] (Normal) Range: 211-911 :51 HgA1C , Office (89012) HgA1C , Office 5.9 % (Normal) Range: 4.6 - 7.1 [id number]:51 Blood Glucose , Office (66858) Blood Glucose , Office 113 (Normal) :49 [...] >240 mg/dL High Risk :01 Urinalysis, Office (43690) UA - BILIRUBIN Negative (Normal) UA - [...] Comments: GLU,2HPPG 75gm GLUC PPG GLUP from [id number]. [id number]-Lgl-[id number] CHEST, PA AND LATERAL Radiology Report See Note (Normal) Comments: Exam Number: [id number] PA AND LATERAL CHEST HISTORY Being done for chest pain. FINDINGSCardiac configuration is upper limits of normal to mildly enlarged.There is mild elevation, left hemid iaphragm. No acute infiltrate,effusion, or pneumothorax is identified. There is moderate spurformation noted in the lower dorsal spine. IMPRESSION1. A number of chronic changes.2. No acute infiltrate. Reported By: CADE MERCER M.D. 11-Cud-451821:20 URINE HANSA CULTURE-IDENTIFICATN Comments: PATIENT NOT FASTINGClinical Information: ADD [id number] [facility]FORMED BY: [id number] [id number] ([id number]) Antimicrobial MARY (Normal) Comments: S = Susceptible; I = [...] mL (Normal) Urine Final report Culture,Comprehensive (Normal) 82-Xtk-30296:00 CBC With Differential/Platelet Comments: PATIENT NOT FASTINGPERFORMED BY: [facility] [id number] [facility] [id number] Baso (Absolute) 0.1 {x10E3/uL} (Normal) Range: 0.0-0.2 [...] 11.7-15.0 WBC 6.0 {x10E3/uL} (Normal) Range: 4.0-10.5 50-Qns-14141:00 Comp. Metabolic Panel (14) Comments: PATIENT NOT FASTINGPERFORMED BY: [facility] [id number] [facility] [id number] A/G Ratio 1.7 (Normal) Range: 1.1-2.5 Albumin, [...] Serum 116 mg/dL (Abnormal) Range: 65-99 If -Armenian >60 mL/min (Normal) Range: 60-128 Comments: Note: [...] (Normal) Range: 0.34-4.82 :33 HgA1C , Office (49664) HgA1C , Office 5.2 % (Normal) Range: 4.6 - 7.1 :33 Blood Glucose , Office (06331) Blood Glucose , Office 172 (Normal) :08 FEMUR,2 VIEWS Radiology Report See Note (Normal) Comments: Exam Number: [id number] AP AND LATERAL LEFT TIBIA/FIBULA. HISTORYBeing done [...] IMPRESSIONNo acut e fracture seen. Reported By: CADE MERCER M.D. :08 TIBIA & FIBULA,2 VIEWS Radiology Report See Note (Normal) Comments: Exam Number: [id number] AP AND LATERAL LEFT TIBIA/FIBULA. HISTORYBeing done [...] IMPRESSIONNo acut e fracture seen. Reported By: CADE MERCER M.D. :32 CBCD,SMEAR DIFF CELLS COUNTED [...] (Normal) Range: 0.34-4.82 :53 HgA1C , Office (00791) Comments: done-[facility] HgA1C , Office 5.3 % (Normal) Range: 4.6 - 7.1 :53 Blood Glucose , Office (40182) Comments: done-[facility] Blood Glucose , Office 94 (Normal) :55 [...] Range: 6.4-8.2 :18 Blood Glucose , Office (09281) Blood Glucose , Office 5.6 (Normal) :18 HgA1C , Office (87802) HgA1C , Office 142 % (Abnormal) Range: 4.6 - 7.1 :40 FECAL WBC See Note (Normal) Comments: Precautions*: [...] Range: 6.4-8.2 :05 COMPLETE UA Comments: COMMENTS: [facility] 7 DR Webster*: NOT APPLICABLE BACTERIA 0 [...] :00 AMIE 25 U/L (Normal) Comments: COMMENTS: [facility] Webster*: NOT APPLICABLE Range: 25-115 :00 CBCD Comments: COMMENTS: [facility] DR Webster*: NOT APPLICABLE BASO% 0.1 % [...] 11.6-14.6 WBC 5.3 K/mm3 (Normal) Range: 4.4-11.0 50-Mcp-552626:00 COMP METABOLIC Comments: COMMENTS: BED 7 DR [...] T PROT 8.0 g/dL (Normal) Range: 6.4-8.2 73-Fui-418081:00 D BILI 0.14 mg/dL (Normal) Comments: COMMENTS: BED 7 FASTPrecautions*: NOT APPLICABLE Range: 0.00-0.30 :00 LIPASE 141 U/L (Normal) Comments: COMMENTS: BED 7 DR Garcíacajori*: NOT APPLICABLE Range: 114-286 :46 LIVER ALB [...] mg/dL VLDL 50 mg/dL (Abnormal) Range: 5-40 8-Wxt-767823:02 URINALYSIS (31452) URINALYSIS Comments: uNABLE TO PUT RESULTS IN CORRECTLY- CJBXODE-NVDEEIEKPCTE-FLOLNUWXUFR-NEGS.G.-1.447KEAER-QNTSTGYEAI-0.7OPJCSNH-KWYYSYPKIKN-1.3YVFFOGXI-IBGRAWYFHDPKIXMLZS-RNLFZ (Normal) :09 HgA1C , Office (82050) HgA1C , Office 5.4 % (Normal) Range: 4.6 - 7.1 :09 Blood Glucose , Office (05338) Blood Glucose , Office 161 (Normal) Plan [...] II, controlled, with no complications 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 : Reviewed [employer] Letter 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 Mixed hyperlipidemia : Cholesterol mgmt Indication: [...] Macrocytosis : Continue Current Prescription(s)- B12 shots montly Indication: Macrocytosis 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 : Reviewed [employer] Letter 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 : Continue Current Prescription(s) 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 Diabetes mellitus type 2, uncontrolled, without complications : Follow up in 3 months- gen med Indication: Diabetes mellitus type 2, uncontrolled, without complications Hypertensive heart disease without heart failure : Follow up in 3 weeks- rekc bp Indication: Hypertensive heart disease without heart [...] Pulmonary hypertension, moderate to severe : Reviewed [employer] Letter Indication: Pulmonary hypertension, moderate to severe [...] S/P laminectomy with spinal fusion : Reviewed Truss Builder Letter Indication: S/P laminectomy with spinal fusion Macrocytosis without anemia : Reviewed Lab Indication: Macrocytosis without anemia Diabetes mellitus type II, controlled, with no complications : Reviewed Diagnostic Tests Indication: Diabetes mellitus type II, controlled, with no complications S/P laminectomy with spinal fusion : Reviewed Tr[employer] Letter Indication: S/P laminectomy with spinal fusion [...] pneumonia) CAP (community acquired pneumonia) : Reviewed [employer] Letter Indication: CAP (community acquired pneumonia) Sinusitis, bacterial : Eprescribed prescriptions (G8553) Indication: Sinusitis, bacterial Pulmonary hypertension, moderate to severe : Reviewed Diagnostic Tests Indication: Pulmonary hypertension, moderate to severe Nonsmoker : Eprescribed prescriptions (G8553) Indication: Nonsmoker Bronchitis : Reviewed Diagnostic Tests Indication: Bronchitis Bronchitis : Reviewed Truss [employer] Letter Indication: Bronchitis Bronchitis : *Antibiotic Usage [...] : FOLLOW UP IN 3 DAYS with [facility] Indication: EDEMA, NOS Benign paroxysmal positional vertigo : Reviewed [employer] Letter Indication: Benign paroxysmal positional vertigo Acute [...] MONTHS Indication: Mixed hyperlipidemia Planned Observations TSH (42893)Indication: Diabetes mellitus type 2, uncontrolled, without complications On: 42 Request URINALYSIS, W/ MICRO (12503)Indication: Diabetes mellitus type 2, uncontrolled, without complications On: :42 Request MICROALBUMIN: CREATININE RATIO (81577) AND (99224)Indication: Diabetes mellitus type 2, uncontrolled, without complications On: :42 Request METABOLIC PANEL, COMPREHENSIVE (91307)Indication: Hypertensive heart disease without heart failure On: 1-Ntf-268637:42 Request LIPID PANEL (94507)Indication: Mixed hyperlipidemia On: :42 Request CBC W/AUTO DIFF WBC (72568)Indication: Hypertensive heart disease without heart failure On: 9-Rfb-989356:42 Request LIPID PANEL (04323)Indication: Diabetes mellitus type 2, uncontrolled, without complications On: 5-Uua-059654:25 Request CBC WITH MANUAL DIFF (16344)Indication: Elevated platelet count On: :11 Request LIPASE (71914)Indication: Flu-like symptoms On: 8-Bos-019512:53 Request Comments: stat POTASSIUM SERUM (72139)Indication: Hypokalemia On: :40 Request MAGNESIUM (68796)Indication: Hypomagnesemia On: 83-Ban-832917:40 Request Renal function Panel (11399)Indication: Hypokalemia On: 04-Dzo-251825:48 Request POTASSIUM SERUM (95900)Indication: Hypokalemia (Renamed from Decreased potassium in the blood) On: 03-Nov-20169:06 Request POTASSIUM SERUM (62607)Indication: Hypokalemia (Renamed from Decreased potassium in the blood) On: 71-Jei-359727:55 Request POTASSIUM SERUM (01785)Indication: Hypokalemia On: 5-Dme-447815:22 Request MAGNESIUM (99152)Indication: Hypokalemia On: 8-Bjo-038259:21 Request URINE HANSA CULTURE-JEWELS COL COUNT (60678)Indication: UTI (urinary tract infection), bacterial On: :54 Request MAGNESIUM (35826)Indication: Abdominal pain On: 14-Nob-453206:45 Request Comments: do in 3 weeks CALCIFEDIOL (28392)Indication: Vitamin D deficiency On: 74-Foi-754265:14 Request LIPID PANEL (77069)Indication: Mixed hyperlipidemia On: 81-Vyh-350012:13 Request VITAMIN B12 AND FOLATES (29297)Indication: B12 deficiency anemia On: 51-Lku-080500:13 Request TSH (THYROID STIMULATING HORMONE) (26401)Indication: Thyroid Nodule On: :13 Request METABOLIC PANEL, COMPREHENSIVE (71727)Indication: Mixed hyperlipidemia On: :13 Request CBC WITH MANUAL DIFF (41367)Indication: Hypertensive heart disease without heart failure On: 27-Jev-318144:13 Request MICROALBUMIN: CREATININE RATIO (33098) AND (15912)Indication: Hypertensive heart disease without heart failure On: 64-Yrx-106819:13 Request MYOGLOBIN (20699)Indication: Sweating abnormality On: 68-Tmy-588130:11 Request CPK MB FRACTION (18635)Indication: Sweating abnormality On: 48-Bly-378806:11 Request ASSAY, TROPONIN, QUANTITATIVE (aka Troponin I) (13963)Indication: Sweating abnormality On: 40-Exu-271843:11 Request METABOLIC PANEL, BASIC (43837)Indication: Hypokalemia (Renamed from Decreased potassium in the blood) On: 36-Mgn-335566:16 Request PARATHORMONE (98267)Indication: Hypocalcemia On: 71-Gau-985168:23 Request Magnesium (59704)Indication: Hypokalemia (Renamed from Decreased potassium in the blood) On: 39-Dhh-858761:22 Request CALCIUM, IONIZED (23415)Indication: Hypocalcemia On: 85-Iun-802917:21 Request VITAMIN B12 AND FOLATES (68049)Indication: Macrocytosis without anemia On: 10-Hcz-470550:39 Request SMEAR+INTERP FLUOR STAIN (14952)Indication: Macrocytosis without anemia On: 35-Qqd-760272:37 Request MICROALBUMIN: CREATININE RATIO (82555) AND (34057)Indication: Hypertensive heart disease without heart failure On: 71-Csj-874896:16 Request CBC W/AUTO DIFF WBC (40029)Indication: Hypertensive heart disease without heart failure On: 97-Sjv-397030:16 Request METABOLIC PANEL, COMPREHENSIVE (62393)Indication: Hypertensive heart disease without heart failure On: 16-Cpo-592423:16 Request LIPID PANEL (14123)Indication: Mixed hyperlipidemia On: 50-Moq-077360:16 Request Vitamin D Hydroxy (05124)Indication: Vitamin D deficiency On: 13-Psj-024239:15 Request VITAMIN B-12 (CYANOCOBALAMIN) (21475)Indication: B12 deficiency anemia On: 51-Kyc-248044:15 Request METABOLIC PANEL, COMPREHENSIVE (33354)Indication: Fatigue On: :07 Request LIPID PANEL (40215)Indication: Mixed hyperlipidemia On: :07 Request VITAMIN B-12 (CYANOCOBALAMIN) (23459)Indication: B12 deficiency anemia On: :07 Request CBC (AUTO) (12122)Indication: B12 deficiency anemia On: :07 Request Vitamin D Hydroxy (06278)Indication: Vitamin D deficiency On: :06 Request HgA1C , Office (69051)Indication: Diabetes mellitus type II, controlled, with no complications On: :55 Request CBC, PLATELETS & MANUAL DIFF (31204)Indication: Hypokalemia (Renamed from Decreased potassium in the blood) On: :08 Request Comments: recheck before 11-07-14 MICROALBUMIN: CREATININE RATIO (60013) AND (67192)Indication: Proteinuria On: :49 Request VITAMIN B-12 (CYANOCOBALAMIN) (35282)Indication: B12 deficiency anemia On: :56 Request Vitamin D Hydroxy (28597)Indication: Vitamin D deficiency On: :56 Request CBC WITH MANUAL DIFF (40938)Indication: B12 deficiency anemia On: :55 Request METABOLIC PANEL, COMPREHENSIVE (70814)Indication: Hypertensive heart disease without heart failure On: :55 Request LIPID PANEL (34984)Indication: Mixed hyperlipidemia On: :55 Request LIPID PANEL (93880)Indication: Mixed hyperlipidemia On: :31 Request TSH (51378)Indication: Thyroid Nodule On: :31 Request MICROALBUMIN: CREATININE RATIO (35064) AND (33721)Indication: Diabetes mellitus type II, controlled, with no complications On: :31 Request METABOLIC PANEL, COMPREHENSIVE (81942)Indication: Diabetes mellitus type II, controlled, with no complications On: :31 Request URINALYSIS, W/ MICRO (64634)Indication: Proteinuria On: :30 Request Vitamin D Hydroxy (84144)Indication: Vitamin D deficiency On: :30 Request CBC, PLATELETS & AUT DIFF (75614)Indication: B12 deficiency anemia On: :29 Request VITAMIN B-12 (CYANOCOBALAMIN) (50038)Indication: B12 deficiency anemia On: :29 Request HgA1C , Office (54962)Indication: Diabetes mellitus type II, controlled, with no complications On: :03 Request TSH (29666)Indication: Thyroid Nodule On: :39 Request LIPID PANEL (38854)Indication: Mixed hyperlipidemia On: :38 Request CBC WITH MANUAL DIFF (31149)Indication: Diabetes mellitus type II, controlled, with no complications On: :38 Request METABOLIC PANEL, COMPREHENSIVE (77104)Indication: Diabetes mellitus type II, controlled, with no complications On: :38 Request Vitamin D Hydroxy (34055)Indication: Vitamin D deficiency On: :22 Request CBC, PLATELETS & AUT DIFF (41730)Indication: B12 deficiency anemia On: 90-Cxs-70130:22 Request VITAMIN B-12 (CYANOCOBALAMIN) (14036)Indication: B12 deficiency anemia On: :22 Request CBC WITH MANUAL DIFF (45220)Indication: Diabetes mellitus type II, controlled, with no complications On: :12 Request METABOLIC PANEL, COMPREHENSIVE (52262)Indication: Diabetes mellitus type II, controlled, with no complications On: 10-Gly-56752:12 Request HEPATIC FUNCTION PANEL (76976)Indication: Mixed hyperlipidemia On: 74-Zbd-56302:10 Request LIPID PANEL (34805)Indication: Mixed hyperlipidemia On: 29-Inc-51285:10 Request VITAMIN B-12 (CYANOCOBALAMIN) (43974)Indication: B12 deficiency anemia On: 32-Xqj-15434:02 Request TSH (51759)Indication: Dysthymic disorder On: 90-Tzk-609857:17 Request CREATININE CLEARANCE (50678)Indication: Proteinuria On: 17-Hsk-070500:15 Request 24 hour urine for Protein (25315)Indication: Proteinuria On: 37-Uts-151876:15 Request VITAMIN B-12 (CYANOCOBALAMIN) (65803)Indication: B12 deficiency anemia On: 07-Wax-666053:15 Request CCP ANTIBODY (63860)Indication: Pain in unspecified joint On: 07-Nov-20119:47 Request LIPID PANEL (68501)Indication: Mixed hyperlipidemia On: 58-Rvm-282968:45 Request OVA & PARASITE DIR SMEAR (52791)Indication: Diarrhea On: :52 Request LEUKOCYTE COUNT, FECAL (21706)Indication: Diarrhea On: :52 Request Clostridium difficile Toxin A+B, EIA (45847)Indication: Diarrhea On: :52 Request HANSA CULTURE-STOOL (77376)Indication: Diarrhea On: :52 Request CBC WITH MANUAL DIFF (46903)Indication: Hypertensive heart disease without heart failure On: 90-Drf-632683:11 Request METABOLIC PANEL, COMPREHENSIVE (07545)Indication: Hypertensive heart disease without heart failure On: 06-Wqq-404431:11 Request LIPID PANEL (03849)Indication: Mixed hyperlipidemia On: 08-Xdx-160947:11 Request Influenza B Ag (23957)Indication: Myalgia and myositis On: 93-Bae-89811:06 Request Influenza A Ag (58369)Indication: Myalgia and myositis On: 59-Qxc-01555:06 Request METABOLIC PANEL, COMPREHENSIVE (37982)Indication: Uncomplicated herpes simplex On: 39-Efk-227497:13 Request MICROALBUMIN: CREATININE RATIO (28708) AND (44226)Indication: Abnormal glucose tolerance test On: :32 Request METABOLIC PANEL, COMPREHENSIVE (53858)Indication: Hypertensive heart disease without heart failure On: :32 Request HEPATIC FUNCTION PANEL (61137)Indication: Mixed hyperlipidemia On: :31 Request LIPID PANEL (11478)Indication: Mixed hyperlipidemia On: :31 Request TSH (23773)Indication: Abnormal glucose tolerance test On: 30-Pli-654243:19 Request LIPID PANEL (75197)Indication: Mixed hyperlipidemia On: 24-Tmy-543419:15 Request HEPATIC FUNCTION PANEL (28462)Indication: Mixed hyperlipidemia On: 71-Ffy-565052:15 Request METABOLIC PANEL, COMPREHENSIVE (30379)Indication: Hypertensive heart disease without heart failure On: :56 Request HEPATIC FUNCTION PANEL (34399)Indication: Mixed hyperlipidemia On: :56 Request LIPID PANEL (76834)Indication: Mixed hyperlipidemia On: :56 Request MICROALBUMIN: CREATININE RATIO (74182) AND (75101)Indication: Abnormal glucose tolerance test On: :30 Request CBC WITH MANUAL DIFF (65282)Indication: Abnormal glucose tolerance test On: :30 Request VITAMIN B-12 (CYANOCOBALAMIN) (95738)Indication: Tinnitus, unspecified laterality On: :24 Request METABOLIC PANEL, COMPREHENSIVE (62254)Indication: Hypertensive heart disease without heart failure On: :24 Request LIPID PANEL (78647)Indication: Mixed hyperlipidemia On: :24 Request URINALYSIS W/O MICRO (07722)Indication: Hypertensive heart disease without heart failure On: :12 Request TSH (84448)Indication: Hypertensive heart disease without heart failure On: 50-Fus-450481:12 Request CBC WITH MANUAL DIFF (86793)Indication: Hypertensive heart disease without heart failure On: 82-Wam-679626:12 Request METABOLIC PANEL, COMPREHENSIVE (05635)Indication: Hypertensive heart disease without heart failure On: :12 Request LIPID PANEL (65960)Indication: Mixed hyperlipidemia On: 57-Oyp-159673:12 Request CBC with manual diff (89872)Indication: Pre-operative examination On: :30 Request Metabolic Panel, Comprehensive (83877)Indication: Pre-operative examination On: 26-Ojg-005365:30 Request Urinalysis, Office (85359)Indication: Pre-operative examination On: 17-Tqw-345236:29 Request Lipid Panel (58313)Indication: Mixed hyperlipidemia On: :52 Request Comments: in three months (approximately) TSH (11591)Indication: Hypertensive heart disease without heart failure On: :52 Request MICROALBUMIN URINE QUANT (28250)Indication: Hypertensive heart disease without heart failure On: :52 Request METABOLIC PANEL, COMPREHENSIVE (22322)Indication: Hypertensive heart disease without heart failure On: :52 Request CBC WITH MANUAL DIFF (26235)Indication: Hypertensive heart disease without heart failure On: :52 Request HEPATIC FUNCTION PANEL (48516)Indication: Mixed hyperlipidemia On: :52 Request LIPID PANEL (34660)Indication: Mixed hyperlipidemia On: :52 Request HEPATIC FUNCTION PANEL (19608)Indication: Mixed hyperlipidemia On: :54 Request LIPID PANEL (71529)Indication: Mixed hyperlipidemia On: :54 Request TSH (68717)Indication: pruritis On: :37 Request METABOLIC PANEL, COMPREHENSIVE (33075)Indication: pruritis On: :37 Request CBC WITH MANUAL DIFF (80536)Indication: pruritis On: :37 Request LIPID PANEL (96537)Indication: Mixed hyperlipidemia On: :18 Request HEPATIC FUNCTION PANEL (10093)Indication: Mixed hyperlipidemia On: :18 Request HEPATIC FUNCTION PANEL (11032)Indication: Mixed hyperlipidemia On: :14 Request LIPID PANEL (43463)Indication: Mixed hyperlipidemia On: 1-Eqq-208598:14 Request Comments: 2mos Planned Encounters Medical; 3 Month FU - On: 24-Aug-2018 7:00 [facility] Margarita Drake DO, DO, Kathleen Planned Procedures ELECTROCARDIOGRAM, COMPLETE (ECG) On: 23-May-2018 Intent (86784)By: Margarita Drake DO Comments: sinus favio no acute chg Margarita GALARZA B 12 Injection, 1000 mcg (J3420)By: On: 23-May-2018 Intent Margarita Drake DO, DO, Comments: b12 1,000mcg/ml 1ml given L deltoid lot#[id number] exp: dino Margarita B 12 Injection, 1000 mcg (J3420)By: On: 26-Mar-2018 Intent Marlyn Roberts LPN Comments: [id number] dltdIMas STATIONARY ENGINEER SUPERVISOR B 12 Injection, 1000 mcg (J3420)By: On: 19-Feb-2018 Intent Margarita Drake DO, DO, Comments: vitamin b12 1000mcg injectionlot: [id number]: 06/2019L DELT IMpt tolerated well Margarita B 12 Injection, 1000 mcg (J3420)By: On: 07-Dec-2017 Intent Noelle GALARZA Margarita Drake , Comments: 1 ml given lt arm lot [id number] exp 01/20 Margarita B 12 Injection, 1000 mcg (J3420)By: On: 10-Nov-2017 Intent Margarita Drake DO, DO, Margarita CHEST XRAY, PA & LATERAL (14934)By: On: 26-Sep-2017 Intent Allyn Manley Aerosol Treatment (13326)By: Khanh On: 13-Sep-2017 Intent Ann Marie MCDANIEL Aerosol Treatment (42528)By: Vineet, On: 07-Sep-2017 Intent Allyn Comments: Lungs clear after aerosol treatment. B 12 Injection, 1000 mcg (J3420)By: On: 15-Aug-2017 Intent Margarita Drake DO Noelle DO, Comments: vitamin b12 1000mcg injectionlot: [id number]: 10/2018L DELT IMpt tolerated wellAD STATIONARY ENGINEER SUPERVISOR Margarita INFUSION, NORMAL SALINE SOLUTION , On: 10-Aug-2017 Intent 1000 CC (Special Coverage Instructions Apply. See MCM: 2048) (J7030)By: Libby Mai DO Toradol Injection, 30 mg (J1885)By: On: 09-Aug-2017 Intent Libby Mai DO Comments: toradol 30mg IV push -per dr. mailot: [id number]: 11/2017IV push in 23g in R ACpt tolerated well. AD STATIONARY ENGINEER SUPERVISOR INFUSION, NORMAL SALINE SOLUTION , On: 09-Aug-2017 Intent 1000 CC (Special Coverage Comments: 23g inserted to R AC per first attemptpt tolerated [id number] NS infusing Instructions Apply. See MCM: 2048) (J7030)By: Stefanie Ghosh XR RIB AND CHEST LEFT (33382)By: Sergei On: 09-Aug-2017 Libby Zavala DO Comments: stat call wet read fall with left anterior inferior rib pain/sob B 12 Injection, 1000 mcg (J3420)By: On: 03-Aug-2017 Intent Visit, Nurse Comments: given - see flowsheet Dose-prefilled syringeRIGHT DLTD, IMgiven by:CIARA JarrellNVIS signed B 12 Injection, 1000 mcg (J3420)By: On: 01-Aug-2017 Intent Margarita Drake DO, DO, Comments: vitamin b12 1000mcg injectionlot: [id number]: 10/2018L DELT IMpt tolerated wellAD STATIONARY ENGINEER SUPERVISOR Margarita B 12 Injection, 1000 mcg (J3420)By: On: 26-Jul-2017 Intent Margarita Drake DO, DO, Comments: vitamin b12 1000mcg injectionlot: [id number]: 10/2018L DELT IMpt tolerated wellAD STATIONARY ENGINEER SUPERVISOR Margarita INTENSIVE BEHAVIORAL THERAPY TO On: 25-Jul-2017 Intent REDUCE CARDIOVASCULAR DISEASE RISK, INDIVIDUAL, QAXA-KT-YEKZ, ANNUAL, 15 MINUTES (G0446)By: Margarita Drake DO, DO, Kathleen SCREENING DIGITAL TOMOSYNTHESIS OF On: 25-Jul-2017 Intent BREAST (68736)By: Margarita Drake DO, DO Margarita B 12 Injection, 1000 mcg (J3420)By: On: 25-Jul-2017 Intent Margarita Drake DO, DO, Comments: vitamin b12 1000mcg injectionlot: [id number]: 10/2018L DELT IMpt tolerated wellAD STATIONARY ENGINEER SUPERVISOR Margarita Rocephon Injection, 1 Gm (J0696)By: On: 13-Mar-2017 Intent Libby Mai DO Radiology - Finger(s) - RightBy: Sergei On: 13-Mar-2017 Libby Zavala DO Comments: second finger rule out osteo Aerosol Treatment (16207)By: Noelle On: 23-Sep-2016 Margarita Zavala DO, DO, Kathleen Comments: albulterol .83%more a/e but more noise- inspir and expir wheeze and junky Bone Density StudyBy: Davian Mccray MD On: 12-Nov-2015 Intent MAMMOGRAM, SCREENING, BOTH BREAST On: 12-Nov-2015 Intent (99516)By: Davian Mccray MD CT - Chest (Without Contrast)By: Shazia On: 05-Nov-2015 Intent Davian ARAGON Comments: low dose DEXA SCAN AXIAL SKELETON (28058)By: On: 29-Oct-2015 Intent Shazia ARAGON, Davian Ultrasound - ThyroidBy: Shazia ARAGON, On: 29-Oct-2015 Intent Davian BILATERAL MAMMOGRAMS (58747)By: Shazia On: 29-Oct-2015 Intent Davian ARAGON B 12 Injection, 1000 mcg (J3420)By: On: 06-Feb-2015 Intent Fast DO Libby A B 12 Injection, 1000 mcg (J3420)By: On: 02-Jan-2015 Intent Sergei DO Libby A Comments: lot [id number] exp 11/2015location L armroute imgiven by - msmith VIS and/or ABN signed CT - ChestBy: Helga Mai DOa A On: 07-Nov-2014 Intent MAMMOGRAM, SCREENING, BOTH BREAST On: 07-Nov-2014 Intent (16750)By: Libby Mai DO A B 12 Injection, 1000 mcg (J3420)By: On: 07-Nov-2014 Intent Sergei GALARZA Libby A Comments: lot: [id number]: 06/19Dose: 1,000 mcgSite: l dltdLocation; IMby: B 12 Injection, 1000 mcg (J3420)By: On: 08-Oct-2014 Intent Sergei DO Libby A Comments: Lot:[id number]:05/20Dose:1mlRoute:IMSite:l armGiven By:RAMÓN signed BILATERAL MAMMOGRAMS (96213)By: Sergei On: 08-Aug-2014 Intent Helga GALARZAa A INJECTION, VITAMIN B-12 On: 23-Jun-2014 Intent CYANOCOBALAMIN, UP TO 1000 MCG Comments: lot [id number] 03/19location L armroute imgiven by - msmithVIS and/or ABN signed (Special Coverage Instructions Apply. See CIM: 45-4 and MCM: 2049) (J3420)By: Ann Marie Cassidy CNP E B 12 Injection, 1000 mcg (J3420)By: On: 23-May-2014 Intent Sergei DO Libby A Comments: lot: [id number]: 05/18site/route: L del/IMamt: 1mLVIS signed when applicableRADHA Marte Radiology - Knee - Right - Weight On: 23-May-2014 Intent BearingBy: Fast DO, Libby A Comments: stat call results Radiology - Hip - RightBy: Fast DO, On: 23-May-2014 Intent Libby A Comments: weight bearing stat-call rsults Ultrasound - ThyroidBy: Fast DO, On: 21-Mar-[address] - ChestBy: Fast DO, Libby A On: 21-Mar-2014 Intent HERMANN (Ankle Brachial Index) (80974)By: On: 10-Feb-2014 Intent Fast DO, Libby A B 12 Injection, 1000 mcg (J3420)By: On: 11-Dec-2013 Intent Fast DO, Libby A Comments: Edgar dltd, [id number] flowsheetMegan CT - ChestBy: Fast DO, Libby A On: 11-Dec-2013 Intent Eprescribed prescriptions (G8553)By: On: 11-Dec-2013 Intent Fast DO, Libby A B 12 Injection, 1000 mcg (J3420)By: On: 30-Oct-2013 Intent Fast DO, Ilbby A Comments: lot: [id number]: 07/19site/route: L del/IMamt: 1mLVIS signed when applicableChelsea, ELECTRIC FURNACE OPERATOR Eprescribed prescriptions (G8553)By: On: 09-Sep-2013 Intent Rachel Leyva ELECTROCARDIOGRAM, COMPLETE (ECG) On: 27-Aug-2013 Intent ([id number])By: Ann Marie Cassidy CNP SPECIMEN HNDLNG/TRNSPRT, OFFC > LAB On: 18-Jun-2013 Intent ([id number])By: Ann Marie Cassidy CNP MAMMOGRAM, SCREENING, BOTH BREASTS On: 04-Jun-2013 Intent ([id number])By: Fast DO Libby A DXA, BONE DENSITY, AXIAL SKELETON On: 04-Jun-2013 Intent ([id number])By: Fast DO Libby A CT - ChestBy: Fast DO, Libby A On: 04-Jun-2013 Intent B 12 Injection, 1000 mcg ([id number])By: On: 20-May-2013 Intent Yolette Allison LPN Comments: Lot: [id number]: Apr 17Amt: 1mlRoute: IMSite: L deltoidGiven by: ANGEL Merlos B 12 Injection, 1000 mcg (J3420)By: On: 12-Mar-2013 Intent Fast DO Libby A Comments: Lot #:[id number] date: mount given: 1mlRoute: IMSite given: left deltoidGiven by: KADY Rehman MAMMOGRAM, SCREENING, BOTH BREASTS On: 01-Feb-2013 Intent ([id number])By: Sergei GALARZA Libby A Comments: end april CT - ChestBy: Fast DO Libby A On: 01-Feb-2013 Intent Comments: march or april B 12 Injection, 1000 mcg (J3420)By: On: 01-Feb-2013 Intent Sergei DO Libby A Eprescribed prescriptions ([id number])By: On: 01-Feb-2013 Intent Rachel Leyva B 12 Injection, 1000 mcg (J3420)By: On: 30-Oct-2012 Intent Racehl Leyva Comments: Lot:Exp:08/17Lot:[id number]:1mlRoute:imSite:L deltoidGiven by:BMY DXA, BONE DENSITY, AXIAL SKELETON On: 30-Oct-2012 Intent ([id number])By: Helga Mai DOa A Eprescribed prescriptions ([id number])By: On: 30-Oct-2012 Intent Rachel Leyva Nuclear Medicine - ThyroidBy: Noelle On: 24-Sep-2012 Intent , Margarita Noelle DO, Margarita Esophagram with 13 mmm tabletBy: On: 06-Sep-2012 Intent Noelle DO, Margarita Noelle DO, Margarita Eprescribed prescriptions ([id number])By: On: 06-Sep-2012 Intent Allyn Prajapati LPN B 12 Injection, 1000 mcg (J3420)By: On: 30-Jul-2012 Intent Helga Mai DOa A Comments: Lot #:[id number] date: mount given: 1mlRoute: IMSite given: left deltoidGiven by: KADY Rehman CT - ChestBy: Helga Mai DOa A On: 30-Jul-2012 Intent Ultrasound - ThyroidBy: Fast DO, On: 30-Jul-2012 Intent Libby A Eprescribed prescriptions ([id number])By: On: 30-Jul-2012 Intent Rachel Leyva Eprescribed prescriptions ([id number])By: On: 05-Jul-2012 Intent Allyn Prajapati LPN MAMMOGRAM, SCREENING, BOTH BREASTS On: 23-Apr-2012 Intent ([id number])By: Libby Mai DO CT - Chest (IV Contrast Needed)By: On: 21-Nov-2011 Intent Libby Mai DO Comments: thi is a follow up CT for abnormal ct chest in april 2011 TDAP VACCINE >7 IM ([id number])By: On: 25-Jul-2011 Intent Rachel Leyva Comments: Lot:[id number]:07/21/13Amt:prefilledRoute:IMSite:left deltGiven By: ANGEL Anthony CT - Abdomen & PelvisBy: Sergei GALARZA, On: 25-Jul-2011 Intent Libby Ballard Comments: stat call wet read FLU VAC, SPLIT, >3 YEARS, INTRAMUSC On: 25-Jul-2011 Intent ([id number])By: Rachel Leyva Comments: pt refuses CT - ChestBy: Libby Mai DO On: 20-Apr-2011 Intent Comments: pe protocol Ultrasound - ThyroidBy: Sergei GALARZA, On: 04-Apr-2011 Intent Libby Ballard Comments: to be done in 6 months Spirometry ([id number])By: Libby Mai DO On: 16-Mar-2011 Intent A Comments: good effort and curve normal Pulse Oximetry ([id number])By: Sergei GALARZA, On: 16-Mar-2011 Intent Libby Ballard Comments: 97% EKG ([id number])By: Libby Mai DO On: 16-Mar-2011 Intent Comments: [...] MAMMOGRAM, SCREENING, BOTH BREASTS On: 17-Jan-2011 Intent ([id number])By: Libby Mai DO Pulse Oximetry ([id number])By: Khanh MCDANIEL, On: 14-Jun-2010 Intent Reema Aerosol Treatment ([id number])By: Khanh On: 14-Jun-2010 Intent Ann Marie MCDANIEL DXA, BONE DENSITY, AXIAL SKELETON On: 23-Dec-2009 Intent ([id number])By: Libby Mai DO MAMMOGRAM, SCREENING, BOTH BREASTS On: 23-Dec-2009 Intent ([id number])By: Libby Mai DO A EKG ([id number])By: Rachel Leyva On: 23-Dec-2009 Intent Comments: ekg- 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 no change normal axis MAMMOGRAM, SCREENING, BOTH BREASTS On: 25-Nov-2008 Intent ([id number])By: Libby Mai DO EKG ([id number])By: Libby Mai DO On: 25-Nov-2008 Intent Comments: ekg showed normal sinus with no lateral t wave inversioon and poor rwave progression- twave inversion anteriolry unchanged Spirometry ([id number])By: Libby Mai DO On: 25-Nov-2008 Intent A Radiology - Chest- PA and LatBy: Sergei On: 25-Nov-2008 Intent Libby GALARZA Pulse Oximetry ([id number])By: Sergei GALARZA, On: 25-Nov-2008 Intent Libby Ballard Bio Z ([id number])By: Libby Mai DO On: 14-May-2008 Intent Comments: high svr and normal cardiac output and thoracic fluid content- change to lotrel Radiology - ChestBy: Khanh Ann Marie MCDANIEL On: 30-Jan-2008 Intent E EKGBy: Khanh Ann Marie MCDANIEL On: 30-Jan-2008 Intent Venous [...] On: 09-Oct-2006 Intent Libby GALARZA Bio Z ([id number])By: Libby Mai DO On: 09-Oct-2006 Intent Comments: high svr and low normal cardiac output- so will add in [facility] Planned Medications INFUSION, NORMAL SALINE SOLUTION , 1000 CC Ordered: 10-Aug-2017 Pending Fast DO, Libby A INFUSION, NORMAL SALINE SOLUTION , 1000 CC Ordered: 09-Aug-2017 Pending Stefanie Ghosh INJECTION, CEFTRIAXONE SODIUM, PER 250 MG Ordered: 13-Mar-2017 Pending Fast DO, Libby A INJECTION, KETOROLAC TROMETHAMINE, PER 15 MG Ordered: 09-Aug-2017 Pending Fast DO, Libby A Vitamin B-12 1000 MCG/ML Injection Solution Ordered: 19-Feb-2018 Pending Noelle DO, Margarita Noelle DO, Margarita Vitamin B-12 1000 MCG/ML Injection Solution Ordered: 07-Dec-2017 Pending Noelle DO, Margarita Noelle DO, Margarita Vitamin B-12 1000 MCG/ML Injection Solution Ordered: 10-Nov-2017 Pending Noelle DO, Margarita Noelle DO, Margarita Vitamin B-12 1000 MCG/ML Injection Solution Ordered: 15-Aug-2017 Pending Noelle DO, Margarita Noelle DO, Margarita Vitamin B-12 1000 MCG/ML Injection Solution Ordered: 03-Aug-2017 Pending Eleni, Vitamin B-12 1000 MCG/ML Injection Solution Ordered: 01-Aug-2017 Pending Noelle DO, Margarita Noelle DO, Margarita Vitamin B-12 1000 MCG/ML Injection Solution Ordered: 26-Jul-2017 Pending Noelle DO, Margarita Noelle DO, Margarita Vitamin B-12 1000 MCG/ML Injection Solution Ordered: 25-Jul-2017 Pending Noelle DO, Margarita Noelle DO, Margarita Vitamin B-12 1000 MCG/ML Injection [...] 1000 MCG/ML Injection Solution Ordered: 23-May-2018 Pending Noelle Margarita GALARZA DO, Kathleen Instructions Name Dates Details Diabetes [...] without anemia Hypomagnesemia : DISCONTINUED - MAGNESIUM (95775) Indication: Hypomagnesemia Macrocytosis without anemia : DISCONTINUED - METABOLIC PANEL, BASIC (91356) Indication: Macrocytosis without anemia Nonsmoker : How [...] Mixed hyperlipidemia : DISCONTINUED - LIPID PANEL (44108) Indication: Mixed hyperlipidemia Mixed hyperlipidemia : DISCONTINUED - METABOLIC PANEL, COMPREHENSIVE (18703) Indication: Mixed hyperlipidemia Mixed hyperlipidemia : DISCONTINUED - LIPID PANEL (61965) Indication: Mixed hyperlipidemia Diabetes mellitus type 2, uncontrolled, without complications : DISCONTINUED - METABOLIC PANEL, COMPREHENSIVE (71118) Indication: Diabetes mellitus type 2, uncontrolled, without [...] Advance Directives Name Dates Details Immunization Registry [place] - Effective on Effective: 25-Jul-201707/25/2017. Expiration date [...] failure, Vitamin D deficiency (268.9), 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 [facility] Visit On: [...] severe, Vitamin D deficiency (268.9), 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 [facility] Office Visit On: [...] bronc hitis, post viral cough-given z-pack and mcegczidwa-Xapzw-qjcle not feeling good- fatigue, fever, chills, high [...] bowel syndrome, unspecified type, lumbarfusion 3-6 March 08//stimulator, End: 25-Aug-2017 13:28 Spinal stenosis in cervical [...] needs help with are none. The pat ient has driven in past 6 months, fallen [...] The patient does have durable power of assistant city attorney and living will. The patient has noticed nothing from the geriatic depression scale. Other providers contributing to the patient's care are softlines supervisor, gastrologist and ecology professor. Encounter Diagnosis: BMI 26.0-26.9,adult, Hypomagnesemia, Nonsmoker, Pulmonary [...] issues sent to Transitional care unit at [place]. Saw Dr. Greene in trasitional care, had [...] on ??April 14. Up to date on TDAP, 07/2011 End: 13-Mar-2017 10:01 Encounter Diagnosis: BMI 28.0-28.9,adult, [...] for xofran.Told it was colitis. Admitted to [facility] and had monitoring then cath found 25% [place] cardio myopthy, placed on carvediolol 6.25mg [facility] after Nonstemi, and low EF 25% [...] is transitioning into care from a hospital ([facility] 10/23 to 10/27 pneumonia) and a [...] - Reason for hospitalization note: (was in [facility] for bronchitis I used [...] home health. Sciatica will have block by Basalchiara. Will be seeing Dr. Viri Mccray. and [...] The patient does have durable power of assistant city attorney and living will. The patient has noticed lack of energy. Other providers contributing to the patient's care are senior sales associate and other: (eye exam - 1 year [...] the fatigue is because traveling alot for [employer] and up late and trial coming upEncounter [...] shot- and she hasnt been back [facility]- us reviewed and told her to make [...] an artificial hip and has apt with [facility] but cant get in till 06/01/14.- dog [...] had 3 shots in lower back by roxane- she is having leg pain and aching- [...] evaluation: Surgery is with Dr. Yepez in [place]- [phone] and fax- [phone]- had stimulator removed- then had mri of [...] joints stiff- 2 weeks ago treated by [facility] for sinus with amoxil- got better for [...] pressure (and trying to use hands or whizzer hand anything). There is no radiation. Associated symptoms [...] instructions. Current medication use: no serene End: 26-Nov-2008 9:02 e effects and compliant [...] and tolerance--- her bp high and said becuase son in intermediate, [ADDITIONAL REASON] Follow up, Laboratory Test Results [...] of stress - now taking care of Jessiac Noblehaving issues with her lips and herpes [...] itching is located on the upper extremities (hanas k). The symptoms have no aggravating factors. [...] poorly. Patient has been compliant with instructions. [facility] End: 09-Aug-2006 12:15 nt medication use: no [...] better- couldnt get insurance to pay for [employer]- [email or web address] works for her- thinks she needs to [...] [facility] End: 31-May-2006 15:22 Payers MedicareCignaCybeverly Maharaj; nellie guarantor
--- OUTSIDE RECORDS SUMMARY | 2018-10-01 09:13 | XMS RPT_ITS | Continuity of Care Document ---
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) Status: Active Elevated platelet count (R79.89, 790.6) Status: Active Encounter for annual general medical examination with abnormal findings in adult (Z00.01, V70.0) Status: Active Encounter for screening for malignant neoplasm of colon (Renamed from Special screening for malignant neoplasms, colon) (Z12.11, V76.51) Comments: last scope 03/20 [facility] Status: Active Encounter for screening mammogram [...] levelsCr 0.73 Status: Active Hypokalemia (E87.6, 276.8) Status: Active Hypokalemia (E87.6, 276.8) Comments: was 3.4 on last labs if still low today will add K supplement Status: Active Hypomagnesemia (E83.42, 275.2) Status: Active [...] d ay (can buy a pedometer at [employer]), -5 days of week of 30 mins [...] 10-Apr-2018 Active VITAMIN C & E COMBINATION, [id number] (Oral Capsule) 1 (one) Capsule Capsule qd [...] : 09-Apr-2018 Inactive Comments:Sixty script given to oxrsbiyD78.0 AUGMENTIN, 875-125MG (Oral Tablet) 1 Tablet bid [...] : 28-Jan-2016 End : 07-Feb-2016 Inactive NYSTATIN, 149700SWGX/GM (External Cream) apply Cream bid to affected [...] Quantity: 90 {Capsule_DR} Refills: 3 Ordered:23-Dec-2009 Rachel Levya Start : 14-Sep-2009 Inactive ULTRAM, 50MG (Oral [...] Start : 25-Oct-2007 Inactive VITAMIN D (ERGOCALCIFEROL), 79602YSYE (Oral Capsule) 1 Capsule q weekly for [...] Quantity: 10 {Vial} Refills: 3 Ordered:02-Sep-2016 Slarb INSECTICIDE SUPERVISOR, Marlyn Start : 21-Mar-2014 End : [...] Quantity: 4 {Tablet} Refills: 0 Ordered:07-Oct-2016 Slarb INSECTICIDE SUPERVISOR, Marlyn Start : 23-Sep-2016 End : [...] Quantity: 90 {Tablet} Refills: 3 Ordered:21-Dec-2011 Rachel Lyeva Start : 21-Dec-2011 End : 21-Dec-2011 Discontinued [...] physical examination (Z01.818, V72.83) Comments: ekg at [facility] with records from recent hospitalization Status: [...] 20-Apr-2011 screening Status: Inactive as of 11-Dec-2013 screening Status: Inactive as of 11-Dec-2013 SCREENING [...] (R06.02, 786.05) Comments: See referral letter from [facility] REspiratory scanned document Dr Munguia saw [...] and Obrych, surgical decompression /fusion c3-c6- 2013- [facility] Completed Date Value Details 07-May-2018 Discharge Instruction Result: Comments: See Note; NOTES: [facility] Medical Records Department [address] [place] [address] Discharge Instruction 05/07/18 0931 MR#: [id number] Acct: [id number] Name: Radha MAHARAJ Rep #: [id number] : 1945 72 From: Parminder Blanco MD PCP: Margarita Drake DO Status: DEP ER ED Disposition - Plan for ED Patient: Disposition: Home or Assisted Living Chief Complaint : General Illness Instructions: ED Gastroenteritis Viral Prescriptions: Ondansetron [Zofran Odt] 4 mg PO Q4H PRN PRN #10 tab.rapdis PRN Reason: Nausea Referrals: Mragarita Drake DO [Primary Care Provid er] - [...] your Primary Care Provider. Call [facility] ([phone]) or report to the closest Emergency Room. Call 911 if necessary. 05/07/18 1545 <Electronically signed by Parminder Blanco MD> Date J brent Blanco MD Cosigner Signature (If Indicated): Date CC: Margarita Drake DO 07-May-2018 Emergency Department Summary Result: Comments: See Note; NOTES: [facility] Medical Records Department [address] [place] [address] Emergency Department Summary 05/07/18 0838 MR#: [id number] Acct: [id number] Name: MAR MAHARAJ Rep #: [id number] : 1945 72 From: Parminder Blanco MD PCP: Margarita Drake DO Status: DEP ER - ER Visit Summary Date of Service: 05/07/18 Chief Complaint: Nausea, vomiting and diarrhea History of Present Illness: The patient is a 72 F has a past medical history of valvular heart disease, hypertension, cholesterol spinal stenosis and multiple surgeries. Patient states she zoran t to [employer] game on Monday. And she developed nausea [...] Dehydration This note was ge nerated with [employer] dictation software. It may contain incorrect words, [...] problems, contact your Primary Care Provider. Call [email or web address] Registry ([phone]) or report to the closest Emergency Room. Call 911 if necessary. 05/07/18 1545 <Elec tronically signed by Parminder Blanco MD> Date Parminder Blanco MD Cosigner Signature (If Indicated): Date CC: Margarita Drake DO 22-Feb-2018 Downtime Report Result: Comments: See Note; NOTES: [facility] Medical Records Department [address] [place] [address] Downtime Report MR#: [id number] Acct: [id number] Name: MAR MAHARAJ Rep #: [id number] : 1945 72 From: Gilson Washington PCP: Margarita Drake DO Status: REG CLI This patient was seen during an EMR downtime February 05, 2018 - February 12, 2018. This patient may have a combination o f paper and electronic documentation or all paper documentation. All documentation is viewable within the e-chart portion of [employer] for each patient visit. 08-Feb-2018 Spine Lumbar (Routine) Result: Comments: See Note; NOTES: [facility] Imaging Services [address] [place] [address] Spine Lumbar (Routine) MR#: [id number] Acct: [id number] Name: MAR MAHARAJ Rep #: [id number] : 1945 F 72 From: Dylan Donato MD PCP: Margarita Drake DO Status: REG CLI Study: Spine Lumbar (Routine) Date of Exam: 02/08/18 Exam# [id number] Ordering Dr: De Yepez STUDY: MRI LUMBAR [...] , CC: NICO YEPEZ; Margarita Drake DO Manual Training Teacher: Signed 08-Feb-2018 Spine Lumbar without Contrast Result: Comments: See Note; NOTES: [facility] Imaging Services [address] [place] [address] Spine Lumbar without Contrast MR#: [id number] Acct: [id number] Name: MAR MAHARAJ Rep # : [id number] : 1945 F 72 From: Robles Mejia PCP: Margarita Drake DO Status: REG CLI Study: Spine Lumbar without Contrast Date of Exam: 02/08/18 Exam# [id number] Ordering Dr: De Yepez STUDY: C T [...] paraspinous soft tissue structures. ORDE R #: [id number] CT/Spine Lumbar without Contrast IMPRESSION: Multilevel degenerative change discussed above. Hardware as described. Right L3 pedicle screw appears broken. Grade 1 anterolisthesis of L4 on L5. Laminectomies. Demineralization. Electronically Signed: Robles Mejia DO at 10:57 EDT , Service support , CC: DE Drake DO Manual Training Teacher: Signed 09-Jan-2018 Pulmonary Visit Report Result: Comments: See Note; NOTES: [facility] 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: No DME Vendor: [employer]ompan[employer] [...] 10/12/17 [History Confirmed 12/03/17] Hydrocodone Bitart/Apap 5-325 [Lynn 5MG-325MG] 1 tab PO Q6H PRN PRN 3 Days #10 tab 12/03/17 [Rx] sodium chloride 0.65 % nasal spray aerosol 2 spray INTRANASAL QHS ml 01/09/18 [History Confirmed 01/09/18] PFSH Medical History Hyperlipidemia (Chronic) Elevated blood pressure reading without diagnosis of hypertension (Chronic) Other long-term (current) drug therapy (Chronic) Nonrheumatic aortic (valve) [...] Date (if applicable) CC: Ann Marie Cassidy SUPERVISOR EDGING; Margarita Drake 03-Dec-2017 Emergency Department Summary Result: Comments: See Note; NOTES: [facility] Medical Records Department [address] [place] [address] Emergency Department Summary 12/03/17 1656 MR#: [id number] Acct: [id number] Name: MAR MAHARAJ Rep #: [id number] : 1945 72 From: Arya Torrez MD [...] blunt trauma This note was generated with [employer] dictation software. It may contain incorrect words, spelling, and punctuation that were not noted in review of the chart prior to signing ED Disposition - Plan for ED Patient: Disposition: Home or Assisted Living Chief Complaint: Chest Other Instructions: ED Contusion Vs Minor Fx Rib Prescriptions: Hydrocodone Bitart/Apap 5-325 [Lynn 5MG-325MG] 1 tab PO Q6H PRN PRN 3 Days #10 tab PRN Reason: Alena n Referrals: Margarita Drake, [Primary Care Provider] - 1 Week if not improving What to do if you have Problems For any increased pain, shortness of breath, bleeding, nausea or vomiting, chest pa in, or any unexpected problems, contact your Primary Care Provider. Call [facility] Registry ([phone]) or report to the closest Emergency Room. Call 911 if necessary. 12/03/17 1706 <Electron ically signed by Arya Torrez MD> Date Arya Torrez MD Cosigner Signature (If Indicated): Date CC: Margarita Drake DO 03-Dec-2017 Chest PA and Lateral Result: Comments: See Note; NOTES: [facility] Imaging Services [address] [place] [address] Chest PA and Lateral MR#: [id number] Acct: [id number] Name: MAR MAHARAJ Rep #: [id number] : 1945 F 72 From: Lotus Anthony MD PCP: Margarita Drake DO Status: DEP ER Study: Chest PA and Lateral Date of Exam: 12/03/17 Exam# [id number] Ordering Dr: Arya Torrez MD STUDY: X-RAY [...] CC: Margarita Drake DO; Arya Torrez MD Manual Training Teacher: Signed 18-Oct-2017 SCREENING MAMM (CAD), BILAT Result: Comments: See Note; NOTES: [facility] Imaging Services [address] [place] [address] SCREENING MAMM (CAD), BILAT MR#: [id number] Acct: [id number] Name: MAR MAHARAJ Rep #: [id number] : 1945 F 72 From: Florian Valenzuela MD PCP: Margarita Drake DO Status: REG CLI Study: SCREENING MAMM (CAD), BILAT Date of Exam: 10/18/17 Exam# [id number] Ordering Dr: Alysia Drake DO MAMMOGRAPHY - [...] delay biopsy of a clinically suspicious abnormality. [id number] Electronically Signed: Florian Howard i, MD at 13:51 EST Tel [phone], Service support , CC: Margarita Drake DO Manual Training Teacher: Signed 13-Oct-2017 Cardiology Visit Report Result: Comments: See Note; NOTES: [facility] [address] [place] [address]. [address] [place] [address] OFFICE VISIT Date of Service: 10/13/17 MR#: [id number] Acct: [id number] Name: MAR MAHARAJ Rep #: [id number] : 1945 Provider: Sergio Lawler MD Age/Sex: 72/F Location: [facility] Status: Signed HPI HPI Chief Complaint: Follow [...] reading without diagnosis of hypertension (Chronic) Other long-term (current) drug ther apy (Chronic) Nonrheumatic aortic (valve) insufficiency (Chronic) Nonrheumatic tricuspid (valve) insufficiency (Chronic) Other secondary pulmonary hypertension (Chronic) Nonischemic cardiomyopathy (Windscreen Fitter deangelo) Fatigue (Chronic) Hx pulmonary embolism (Resolved) [...] AND Plan 1. Coronary artery disease involving tangirnaq coronary artery of tangirnaq heart without angina pectoris I25.10 Mild Plan [...] vis,est,level 3 Diagnoses Coronary artery disease involving tangirnaq coronary artery of tangirnaq heart without angina pectoris I25.10 Coronary Disease-Associated Artery/Lesion type: tangirnaq artery [place] vs. transplanted heart: tangirnaq heart Associated angina: without angina Essential hyperten tamika I10 Hypertension type: essential hypertension Coding Level of Care Code Off vis,est,level 3 Diagnoses Coronary artery disease involving tangirnaq coronary artery of tangirnaq heart without angina pect wilber I25.10 Coronary Disease-Associated Artery/Lesion type: tangirnaq artery [place] vs. transplanted heart: tangirnaq heart Associated angina: without angina Essential hypertension I10 Hypertension type: esse ntial hypertension 10/13/17 1546 <Electronically signed by Sergio Lawelr MD> Date Sergio Lawler MD Cosigner Signature: Date _ (if applicable) CC: Margarita Drake DO 26-Sep-2017 Chest PA and Lateral Result: Comments: See Note; NOTES: [facility] Imaging Services [address] [place] [address] Chest PA and Lateral MR#: [id number] Acct: [id number] Name: MAR MAHARAJ Rep #: [id number] : 1945 F 72 From: Quinn Pringle PCP: Margarita Drake DO Status: REG CLI Study: Chest PA and Lateral Date of Exam: 09/26/17 Exam# [id number] Ordering Dr: Allyn Manley SUPERVISOR EDGING-C STUDY: X-RAY C HEST REASON FOR EXAM: [...] , CC: HUANG Manley; Margarita Drake DO Manual Training Teacher: Signed 22-May-2017 History and Physical Exam Result: Comments: See Note; NOTES: [facility] Medical Records Department [address] [place] [address] History and Physical 05/22/17 1809 MR#: [id number] Acct: [id number] Name: RUDY MAHARAJ Rep #: [id number] : 1945 71 From: Edward Chao DO [...] knee (Chronic) Sinusitis, chronic (Chronic) Takotsubo cardiomyopathy (Windscreen Fitter deangelo) chairi malformations/p posterior decompr (Chronic) Allergies [...] 7 back surgeries Psychiatric History: Anxiety, Depression 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 Call Esperanza barnard ([phone]) or report to the closest Emergency Room. Call 911 if necessary. 05/22/17 1710 <Electronically signed by Angelo William MD> Date Angelo William MD Cosigner Signature (If Indicated): Date CC: Ann Marie Cassidy 22-May-2017 Brain/Head without Contrast Result: Comments: See Note; NOTES: [facility] Imaging Services [address] [place] [address] Brain/Head without Contrast MR#: [id number] Acct: [id number] Name: MAR MAHARAJ Rep #: [id number] : 1945 F 71 From: Dorothy Barber MD PCP: Ann Marie Cassidy Status: REG ER Study: Brain/Head without Contrast Date of Exam: 05/22/17 Exam# [id number] Ordering Dr: Angelo William MD STUDY : [...] CC: Ann Marie Cassidy; Angelo William MD Manual Training Teacher: Signed 22-May-2017 Chest 1 View (Portable) Result: Comments: See Note; NOTES: [facility] Imaging Services [address] [place] [address] Chest 1 View (Portable) MR#: [id number] Acct: [id number] Name: MAR MAHARAJ Rep #: [id number] : 1945 F 71 From: Dorothy Barber MD PCP: Ann Marie Cassidy Status: REG ER Study: Chest 1 View (Portable) Date of Exam: 05/22/17 Exam# [id number] Ordering Dr: Angelo William MD STUDY: X-RAY [...] CC: Ann Marie Cassidy; Angelo William MD Manual Training Teacher: Signed 17-May-2017 Emergency Department Summary Result: Comments: See Note; NOTES: [facility] Medical Records Department [address] [place] [address] Emergency Department Summary 05/17/17 1543 MR#: [id number] Acct: [id number] Name: MAR MAHARAJ Rep #: [id number] : 1945 71 From: Tab Peacock MD [...] problems, contact your Primary Care Provider. Call [email or web address] Registry ([phone]) or report to the closest Emergency Room. Call 911 if necessary. 05/17/17 1652 <Electronically signed b austin Peacock MD> Date Tab Peacock MD Cosigner Signature (If Indicated): Date CC: Ann Marie Cassidy 28-Apr-2017 Emergency Department Summary Result: Comments: See Note; NOTES: [facility] Medical Records Department [address] [place] [address] Emergency Department Summary 04/28/17 1059 MR#: [id number] Acct: [id number] Name: MAR MAHARAJ Rep #: [id number] : 1945 71 From: Tab Peacock MD [...] Primary Care Provider. Call [facility] Reg ist[facility] ([phone]) or report to the closest Emergency Room. Call 911 if necessary. 04/28/17 1306 <Electronically signed by Tab Peacock MD> Date Tab Peacock MD Cosigner Signature (If Indicated): Date CC: Ann Marie Cassidy 28-Apr-2017 Chest 1 View (Portable) Result: Comments: See Note; NOTES: [facility] Imaging Services [address] [place] [address] Chest 1 View (Portable) MR#: [id number] Acct: [id number] Name: MAR MAHARAJ Rep #: [id number] : 1945 F 71 From: Sekou Bose DO PCP: Ann Marie Cassidy Status: REG ER Study: Chest 1 View (Portable) Date of Exam: 04/28/17 Exam# [id number] Ordering Dr: Tab Peacock MD STUDY: X-RAY [...] CC: Ann Marie Cassidy; Tab Peacock MD Manual Training Teacher: Signed 12-Apr-2017 Echocardiogram Complete Result: Comments: See Note; NOTES: [facility] Cardiovascular Services [address] [place] [address] Echo Complete 04/12/17 1150 MR#: [id number] Acct: [id number] Name: MAR MAHARAJ Rep #: [id number] : 1945 71 From: Sergio Lawler MD Attending Dr: Nuris ARAGON,Sergio Status: REG CLI Ordering Dr: Sergio Lawler MD Date: 04/12/17 Location: [facility] Sex: F C Admitted: Reason For Study: [...] Dictated: 04/12/17 1 150 Date Transcribed: 04/12/171648 Manual Training Teacher: Signed 13-Mar-2017 Finger(s) Min 2 Views Result: Comments: See Note; NOTES: [facility] Imaging Services [address] [place] [address] Verdana 4d Finger(s) Min 2 Views MR#: [id number] Acct: [id number] Name: MAR MAHARAJ Katy p #: [id number] : 1945 F 71 From: Maldonado Pablo DO PCP: Ann Marie Cassidy Status: REG CLI Study: Finger(s) Min 2 Views Date of Exam: 03/13/17 Exam# [id number] Ordering Dr: Libby Mai DO STUDY: X-RA [...] Maldonado DO Samy at 22:01 EDT Tel [phone], Service support , CC: Ann Marie Mai DO Manual Training Teacher: Signed 15-Feb-2017 Cerv Spine 4 or 5 Views Result: Comments: See Note; NOTES: [facility] Imaging Services [address] [place] [address] Verdana 4d Cerv Spine 4 or 5 Views MR#: [id number] Acct: [id number] Name: MAR MAHARAJ Rep #: [id number] : 1945 F 71 From: Vitaly Turner MD PCP: Ann Marie Cassidy Status: REG CLI Study: Cerv Spine 4 or 5 Views Date of Exam: 02/15/17 Exam# [id number] Ordering Dr: De Yepez STUDY: X -RAY [...] Service support , CC: Ann Marie YEPEZ Manual Training Teacher: Signed 14-Feb-2017 Spine Lumbar (Routine) Result: Comments: See Note; NOTES: [facility] Imaging Services [address] [place] [address] Anju 4d Spine Lumbar (Routine) MR#: [id number] Acct: [id number] Name: MAR MAHARAJ ep #: [id number] : 1945 F 71 From: Dylan Donato MD PCP: Ann Marie Cassidy Status: REG CLI Study: Spine Lumbar (Routine) Date of Exam: 02/14/17 Exam# [id number] Ordering Dr: Abdiel Betts MD LORENA DY: [...] CC: Ann Marie Cassidy; Abdiel Betts MD Manual Training Teacher: Signed 22-Jan-2017 Abdomen/Pelvis without Cont Result: Comments: See Note; NOTES: [facility] Imaging Services [address] [place] [address] Verdana 4d Abdomen/Pelvis without Cont MR#: [id number] Acct: [id number] Name: JOHN MAHARAJ Rep #: [id number] : 1945 F 71 From: Jeb Piedra MD PCP: Ann Marie Cassidy Status: REG ER Study: Abdomen/Pelvis without Cont Date of Exam: 01/22/17 Exam# [id number] Ordering Dr: Stacy Corey MD STUDY: CT [...] CC: Ann Marie Cassidy; Noelle Corey MD Manual Training Teacher: Signed 25-Dec-2016 Venous Duplex Lower Extremity Result: Comments: See Note; NOTES: [facility] Cardiovascular Services [address] [place] [address] Venous Duplex US, Unilateral 12/23/16 1042 MR#: [id number] Acct: [id number] Name: MAR DEAN Rep #: [id number] : 1945 71 From: David Hawthorne MD [...] RDCS, RVT Electronical ly signed by: David aHwthorne MD on 12/25/2016 07:37 PM 12/25/161936 Date David Hawthorne MD CC: Ann Marie Cassidy; Glenn Ro Date Dictated: 12/23/16 1042 Date Transcribed: 12/25/161936 Manual Training Teacher: Signed 19-Dec-2016 Chest 1 View (Portable) Result: Comments: See Note; NOTES: [facility] Imaging Services [address] [place] [address] Verdana 4d Chest 1 View (Portable) MR#: [id number] Acct: [id number] Name: MAR MAHARAJ Rep #: [id number] : 1945 F 71 From: Alfa Bettencourt MD PCP: Ann Marie Cassidy Status: REG ER Study: Chest 1 View (Portable) Date of Exam: 12/19/16 Exam# [id number] Ordering Dr: Edin Rodriguez MD STUDY: X- [...] CC: Ann Marie Cassidy; Edin Rodriguez MD Manual Training Teacher: Signed 19-Dec-2016 Abdomen/Pelvis without Cont Result: Comments: See Note; NOTES: [facility] Imaging Services [address] [address] Verdana 4d Abdomen/Pelvis without Cont MR#: [id number] Acct: [id number] Name: JOHN MAHARAJ Rep #: [id number] : 1945 F 71 From: Afla Bettencourt MD PCP: Ann Marie Cassidy Status: REG ER Study: Abdomen/Pelvis without Cont Date of Exam: 12/19/16 Exam# [id number] Ordering Dr: Edin Rodriguez MD S KARINEDY: [...] CC: Ann Marie Cassidy; Edin Rodriguez MD Manual Training Teacher: Signed 15-Dec-2016 Emergency Department Summary Result: Comments: See Note; NOTES: [facility] Medical Records Department [address] [place] [address] Emergency Department Summary MR#: [id number] Acct: [id number] Name: JOHN MAHARAJ Rep #: [id number] : 1945 71 From: Shon Amaya MD [...] pain SHON AMAYA MD T: RUFUS JOB: [id number] 12/15/16 1522 <Electronically signed by Shon Amaya MD> Date Shon Amaya MD Cosigner Signature (If Indicated): Date CC: Ann Marie Cassidy Date Dictated: 12/13/162342 Date Transcribed: 12/13/162342 Manual Training Teacher: Signed 15-Dec-2016 12 Lead Electrocardiogram Result: Comments: See Note; NOTES: [facility] Cardiovascular Services [address] [place] [address] 12 Lead EKG 12/13/161602 MR#: [id number] Acct: [id number] Name: CAROL ANNMARSUDHA Burns p #: [id number] : 1945 71 From: Astrid Merlos MD [...] undetermined Abnormal ECG Confirmed by ASTRID MERLOS ([id number]), editor map CHRISTIAN [place] (56) on 017 1:15:30 PM Referred By: JOSE LUIS Confirmed By:ASTRID MERLOS 12/15/16 1315 Date Astrid Merlos MD CC: Ann Marie Cassidy Date Dictated: 12/13/16 1603 Date Transcribed: 12/13/161602 Manual Training Teacher: Signed 14-Dec-2016 Venous Duplex Lower Extremity Result: Comments: See Note; NOTES: [facility] Cardiovascular Services [address] [place] [address] Venous Duplex US, Unilateral 12/13/16 1612 MR#: [id number] Acct: [id number] Name: MAR DEAN Rep #: [id number] : 1945 71 From: Rj Cleary MD [...] Date Dictated: 12/13/16 1612 Date Transcribed: 12/14/16602 Manual Training Teacher: Signed 13-Dec-2016 Discharge Instruction Result: Comments: See Note; NOTES: [facility] Medical Records Department [address] [facility] [place] [address] Discharge Instruction 12/13/16 190 MR#: [id number] Acct: [id number] Name: CAROL ANNRadhaNellie Muñoz Rep #: [id number] : 1945 71 From: Shon Amaya MD [...] your Primary Care Provider. Call [facility] ([phone]) or report to the closest Emergency Room. Call 911 if necessary. 12/13/162044 <Electronically signed by Shon Amaya MD&amp ;#62; Date Shon Amaya MD Cosigner Signature (If Indicated): Date CC: Ann Marie Cassidy 13-Dec-2016 Chest 1 View (Portable) Result: Comments: See Note; NOTES: [facility] Imaging Services [address] [place] [address] Verdana 4d Chest 1 View (Portable) MR#: [id number] Acct: [id number] Name: MAR MAHARAJ Rep #: [id number] : 1945 F 71 From: Trent Arias MD PCP: Ann Marie Cassidy Status: REG ER Study: Chest 1 View (Portable) Date of Exam: 12/13/16 Exam# [id number] Ordering Dr: Shon Amaya MD STUDY: X-RAY [...] MD at 17:07 EDT , Service support [phone], CC: Ann Marie Cassidy; Shon Amaya MD Manual Training Teacher: Signed 13-Dec-2016 Abdomen/Pelvis W IV Cont ONLY Result: Comments: See Note; NOTES: [facility] Imaging Services [address] [place] [address] Verdana 4d Abdomen/Pelvis W IV Cont ONLY MR#: [id number] Acct: [id number] Name: LILI MAHARAJ Rep #: [id number] : 1945 F 71 From: Trent Arias MD PCP: Ann Marie Cassidy Status: REG ER Study: Abdomen/Pelvis W IV Cont ONLY Date of Exam: 12/13/16 Exam# [id number] Ordering Dr: Shon Amaya MD STUDY: CT [...] MD at 18:25 EDT , Service support [phone], CC: Ann Marie Cassidy; Shon Amaya MD Manual Training Teacher: Signed 15-Nov-2016 History and Physical Exam Result: Comments: See Note; NOTES: [facility] Medical Records Department [address] [place] [address] History and Physical 11/09/16 1003 MR#: [id number] Acct: [id number] Name: Radha MAHARAJ Rep #: [id number] : 1945 71 From: Glenn Ro PCP: Ann Marie Cassidy Status: PRE IN Location: [facility] DATE OF SERVICE: 11/22/2016 This [...] hip arthroplasty in 2003, Dr. Darien Avina, [facility]. 2. Hysterectomy. 3. Appendectomy. 4. Cholec ystectomy. 5. Brain surgery x2 Arnold-Chiari malformation. 6. Carpal tunnel bilaterally. 7. Cervical surgery, December 2013 at [place]. 8. Right total knee arthroplasty on August 19, 2014, Dr. Darien Avina , [facility]. 9. Laminectomy 2000, instrumentation lumbar fusion. 10. Right total hip arthroplasty in 2013, revision assistive devices. The patient admits to full upper dentures. Denies glasses or hearing aids. SOCIAL HISTORY: The patient is retired, works part-time. Denies tobacco use, denies alcohol use, denies illicit drug use. REVIEW OF SYSTEMS: Documented in the [facility] medical hi story sheet, please refer to [...] of left knee dated October 17, 2016, [facility], weightbearing, AP, tunnel, sunrise, lateral views [...] the hospital. YADIRA Narvaez T: RUFUS JOB: [id number] 11/15/16 0839 <Electronically signed by Glenn Ro > Date: Time: Glenn Ro CC: Ann Marie Cassidy; Glenn Ro Date Dictated: 11/09/16 1003 Date Transcribed: 7 1003 Manual Training Teacher: Signed ____ I have re-examined the patient. There are no clinical changes since date of exam. ____ See Progress Notes for Changes ____ Dictated on Admission Date: ___ Time: Signature: 24-Oct-2016 History and Physical Exam Result: Comments: See Note; NOTES: [facility] Medical Records Department [address] [place] [address] History and Physical 10/19/16 1537 MR#: [id number] Acct: [id number] Name: Radha MAHARAJ Rep #: [id number] : 1945 71 From: Glenn Ro PCP: Ann Marie Cassidy Status: PRE IN Location: [facility] DATE OF SERVICE: 10/25/2016 This [...] a previous right total knee arthroplasty in [facility] er 2013, is very pleased with the [...] arthroplasty i n 2003, Dr. Darien Avina, [facility]. 2. Hysterectomy. 3. Appendectomy. 4. Cholecystectomy. 5. Brain surgery x2. Arnold-Chiari malformation. 6. Carpal tunnel bilaterally. 7. Cervical surgery in ril 2013 in [place]. 8. Right total knee arthroplasty on August 19, 2014, Dr. Darien Avina, [facility]. 9. Laminectomy 2001 instrumentation, lumbar fusion. 10. Right total hip arthroplasty in 2013 , revision. ASSISTIVE DEVICES: The patient admits to full upper dentures. Denies glasses or hearing aids. SOCIAL HISTORY: The patient is retired, but works part-time. She denies tobacco use, denies al cohol use, denies illicit drug use. REVIEW OF SYSTEMS: Documented in the [facility] medical history sheet. Please refer to attached [...] X-rays of l eft knee dated 10/17/2016, [facility], weightbearing, AP, tunnel, [...] Ro Date Dictated: 10/19/161536 Date Transcribed: 10/19/161536 Manual Training Teacher: Toni igned ____ I have re-examined the patient. There are no clinical changes since date of exam. ____ See Progress Notes for Changes ____ Dictated on Admission Date: Time: Sig nature: 23-Oct-2016 Chest PA and Lateral Result: Comments: See Note; NOTES: [facility] Imaging Services [address] [place] [address] Verdana 4d Chest PA and Lateral MR#: [id number] Acct: [id number] Name: MAR MAHARAJ Rep #: [id number] : 1945 F 71 From: Heraclio Meredith MD PCP: Ann Marie Cassidy Status: PRE ER Study: Chest PA and Lateral Date of Exam: 10/23/16 Exam# [id number] Ordering Dr: Edin Horton MD STUDY: X-RAY [...] MD at 14:44 EST , Service support [phone], CC: Mary Cassidy; Edin Horton MD Manual Training Teacher: Signed 23-Sep-2016 Echocardiogram Complete Result: Comments: See Note; NOTES: [facility] Cardiovascular Services [address] [place] [address] Echo Complete 09/23/16 1311 MR#: [id number] Acct: [id number] Name: MAR MAHARAJ Rep #: [id number] : 1945 71 From: Sergio Lawler MD [...] Dictated: 09/23/16 1311 Date Transcribed: 09/23/16 1521 Manual Training Teacher: Signed 21-Sep-2016 12 Lead Electrocardiogram Result: Comments: See Note; NOTES: [facility] Cardiovascular Services [address] [place] [address] 12 Lead EKG 09/18/16 1204 MR#: [id number] Acct: [id number] Name: MAR MAHARAJ Katy p #: [id number] : 1945 71 From: Cade Harrison MD [...] Confirmed by OMAR ARAGON, CADE ([id number]), editor map CHRISTIAN WASHINGTON ([id number]) on 09/21/2016 1:40:15 PM Referred By: FLORIN Confirmed By:CADE HARRISON MD 09/21/16 1340 Date Cade Harrison MD CC: Ann Marie Cassidy Date Dictated: 09/18/16 1204 Date Transcribed: 09/18/16 1204 Manual Training Teacher: Signed 20-Sep-2016 Emergency Department Summary Result: Comments: See Note; NOTES: [facility] Medical Records Department [address] [place] [address] Emergency Department Summary MR#: [id number] Acct: [id number] Name: JOHN MAHARAJ Rep #: [id number] : 1945 71 From: Edin Rodriguez MD [...] C: Ann Marie Cassidy T: NTS JOB: [id number] 09/20/16 1522 <Electronically signed by Edin Rodriguez MD> Date __ Edin Rodriguez MD Cosigner Signature (If Indicated): Date CC: Ann Marie Cassidy Date Dictated: 09/18/16 1339 Date Trans cribed: 09/18/16 1339 Manual Training Teacher: Signed 18-Sep-2016 Discharge Instruction Result: Comments: See Note; NOTES: [facility] Medical Records Department [address] [place] [address] Discharge Instruction 09/18/16 1334 MR#: [id number] Acct: [id number] Name: Radha MAHARAJ Rep #: [id number] : 1945 71 From: Edin Rodriguez MD [...] problems, contact your Primary Care Provider. Call [email or web address] ([phone]) or report to the closest Emergency Room. Call 911 if necessary. 09/18/16 1336 & #60;Electronically signed by Edin Rodriguez MD> Date Edin Rodriguez MD Cosigner Signature (If Indicated): Date CC: Ann Marie Khanh 18-Sep-2016 Chest PA and Lateral Result: Comments: See Note; NOTES: [facility] Imaging Services [address] [place] [address] Verdana 4d Chest PA and Lateral MR#: [id number] Acct: [id number] Name: CAROL ANNMAR S Rep #: [id number] : 1945 F 71 From: Rolly Aviles MD PCP: Ann Marie Cassidy Status: REG ER Study: Chest PA and Lateral Date of Exam: 09/18/16 Exam# [id number] Ordering Dr: Edin Rodriguez MD STUDY: X-RAY [...] 13:29 EST Te l , Service support [phone], CC: Ann Marie Cassidy; Edin Rodriguez MD Manual Training Teacher: Signed 17-Aug-2016 Knee 4 or More Views Result: Comments: See Note; NOTES: [facility] Imaging Services [address] [place] [address] Verdana 4d Knee 4 or More Views MR#: [id number] Acct: [id number] Name: MAR MAHARAJ Rep #: [id number] : 1945 F 71 From: Florian Valenzuela MD PCP: Davian Mccray Status: REG CLI Study: Knee 4 or More Views Date of Exam: 08/17/16 Exam# [id number] Ordering Dr: Gemma Nina MD STUD Y: [...] Florian Valenzuela MD at 15:48 EST Tel [phone], Service support [phone], CC: Tejal Mccray; Gemma Nina MD Manual Training Teacher: Signed 17-Aug-2016 Tibia AND Fibula 2 Views Result: Comments: See Note; NOTES: [facility] Imaging Services [address] [place] [address] Verdana 4d Tibia AND Fibula 2 Views MR#: [id number] Acct: [id number] Name: MAR MAHARAJ Rep #: [id number] : 1945 F 71 From: Florian Valenzuela MD PCP: Davian Mccray Status: REG CLI Study: Tibia AND Fibula 2 Views Date of Exam: 08/17/16 Exam# [id number] Ordering Dr: Gemma Nina STUDY: X-RAY - [...] Florian Valenzuela MD at 15:42 EST Tel [phone], Service support [phone], CC: Davian Nina MD Manual Training Teacher: Signed 01-Jul-2016 Venous Duplex Lower Extremity Result: Comments: See Note; NOTES: [facility] Cardiovascular Services [address] [place] [address] Venous Duplex US, Unilateral 07/01/16 0850 MR#: [id number] Acct: [id number] Name: MAR MAHARAJ Rep #: [id number] : 1945 70 From: David Hawthorne MD Attending Dr: Luly Noriega [employer] Status: REG CLI Ordering Dr: Luly Noriega [employer]-C Date: 07/01/16 Location: [facility] Sex: F C [...] called and/or faxed augmentation. to Luly Noriega [employer] @ 9:20 am @ [facility] is [...] Date Dictated: 07/01/16 0850 Date Transcribed: 07/01/161936 Manual Training Teacher: Signed 07-Jun-2016 6 Minute Walk Test Result: Comments: See Note; NOTES: [facility] Pulmonary Services/Neurology [address] [place] [address] MR#: [id number] Acct: [id number] Name: MAR MAHARAJ Rep #: [id number] : 1945 70 From: Adair Wu MD Referring Dr: Luly Noriega NP Date: Ordering Dr: Sex: F C Location: PSN PSN 6 Minute Walk Test - 6 Minute Walk Test 6 Minute Walk Test: 6 Minute Walk Test PSN:6-Minute Walk Test Start: 06/07/16 11:18 Freq: Status: Active Document 06/07/16 11:18 REK (Rec: 06/07/16 11:21 REK [id number]) 6 Minute Walk Test Date Performed 06/07/16 [...] CC: Date Dictated: 06/07/161540 Date Transcribed: 06/07/161540 Manual Training Teacher: Adair Wu Signed 25-Apr-2016 Chest PA and Lateral Result: Comments: See Note; NOTES: [facility] Imaging Services [address] [place] [address] Verdana 4d Chest PA and Lateral MR#: [id number] Acct: [id number] Name: MAR MAHARAJ Re p #: [id number] : 1945 F 70 From: Stephen Walton DO PCP: Davian Mccray Status: REG ER Study: Chest PA and Lateral Date of Exam: 04/25/16 Exam# [id number] Ordering Dr: Cristhian Mandujano MD STUDY: X-R [...] Stephen Walton DO at 20:12 EDT Tel [phone], Service support [phone], CC: CRISTHIAN MANDUJANO MD; Davian Mccray Manual Training Teacher: Signed 25-Apr-2016 Abdomen/Pelvis without Cont Result: Comments: See Note; NOTES: [facility] Imaging Services [address] [facility] [place] [address] Verdana 4d Abdomen/Pelvis without Cont MR#: [id number] Acct: [id number] Name: GABE MAHARAJ S Rep #: [id number] : 1945 F 70 From: Stephen Walton DO PCP: Davian Mccray Status: REG ER Study: Abdomen/Pelvis without Cont Date of Exam: 04/25/16 Exam# [id number] Ordering Dr: Cristhian Mandujano MD STUDY: CT [...] Stephen Walton DO at 19:00 EDT Tel [phone], Service support [phone], CC: CRISTHIAN MANDUJANO MD; Davian Mccray Manual Training Teacher: Signed 12-Mar-2016 Emergency Department Summary Result: Comments: See Note; NOTES: [facility] Medical Records Department [address] [place] [address] Emergency Department Summary MR#: [id number] Acct: [id number] Name: MAR MAHARAJ Rep #: [id number] : 1945 70 From: Darien Warren MD [...] contusion. Darien Warren MD T: NTS JOB: [id number] 03/12/16 0306 <Electronically signed by Darien Warren MD> Date Darien Warren MD Cosigner Signature (If Indicated): Date CC: Davian Mccray Date Dictated: 2326 Date Transcribed: 03/10/162326 Manual Training Teacher: Signed 10-Mar-2016 Discharge Instruction Result: Comments: See Note; NOTES: [facility] Medical Records Department [address] [place] [address] Discharge Instruction 03/10/162006 MR#: [id number] Acct: [id number] Name: MAR MAHARAJ Rep #: [id number] : 1945 70 From: Darien Warren MD [...] problems, contact your doctor. Call [facility] ([phone]) or report to the closest Emergency Room. Call 911 if necessary. 03/10/162007 <Electronically signed by Darien Warren MD> Date Darien Warren MD Cosigner Signature (If Indicated): Date CC: Davian Mccray 10-Mar-2016 Hip 2-3 Views with Pelvis Result: Comments: See Note; NOTES: [facility] Imaging Services [address] [place] [address] Verdana 4d Hip 2-3 Views with Pelvis MR#: [id number] Acct: [id number] Name: MAR DEAN Rep #: [id number] : 1945 F 70 From: Robles Mejia PCP: Davian Mccray Status: [facility] ER Study: Hip 2-3 Views with Pelvis Date of Exam: 03/10/16 Exam# [id number] Ordering Dr: Carlos Eduardo Warren MD STUDY: [...] MejiaDO at 19:47 EDT , Service support [phone], RAD/Hip 2-3 Views with Pelvis IMPRESSION: Hip joint space narrowing. Stable degenerative changes left hip. No fracture or dislocation. 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 ABNORMAL 25-Jan-2016 Pelvis 1 or 2 Views Result: Comments: See Note; NOTES: [facility] Imaging Services [address] [place] [address] Verdana 4d Pelvis 1 or 2 Views MR#: [id number] Acct: [id number] Name: Radha MAHARAJ Rep #: [id number] : 1945 F 70 From: Doroteo Salgado MD PCP: Davian Mccray Status: REG CLI Study: Pelvis 1 or 2 Views Date of Exam: 01/25/16 Exam# [id number] Ordering Dr: Yadira Nina dma, MD STUDY: [...] at 16 :50 EDT , Service support [phone], RAD/Pelvis 1 or 2 Views IMPRESSION: Focus [...] at 16:50 EDT , Service suppor t [phone], CC: Davian Mccray; Gemma Nina MD Manual Training Teacher: Signed 19-Nov-2015 Vert Fx Asess/Lat Bone Den(H) Result: Comments: See Note; NOTES: [facility] Imaging Services [address] [place] [address] Verdana 4d Vert Fx Asess/Lat Bone Den(H) MR#: [id number] Acct: [id number] Luciano e: MAR MAHARAJ Rep #: [id number] : 1945 F 70 From: Florian Valenzuela MD PCP: Davian Mccray Status: REG CLI Study: Vert Fx Asess/Lat Bone Den(H) Date of Exam: 11/19/15 Exam# [id number] Chucho ering Dr: Davian Mccray STUDY: DUAL [...] Florian Valenzuela MD at 8:52 EDT Tel [phone], Service support [phone], CC: Davian Mccray Manual Training Teacher: Signed 19-Nov-2015 Bilat Scrn Digital AND CAD Result: Comments: See Note; NOTES: [facility] Imaging Services [address] [place] [address] Verdana 4d Bilat Scrn Digital AND CAD MR#: [id number] Acct: [id number] Name: MAR MAHARAJ Rep #: [id number] : 1945 F 70 From: Florian Valenzuela MD PCP: Davian Mccray Status: REG CLI Study: Bilat Scrn Digital AND CAD Date of Exam: 11/19/15 Exam# [id number] Ordering Dr: Davian Mccray MAMMOGRAPHY - BILATERAL [...] Florian Valenzuela MD at 10:06 EDT Tel [phone], Service support [phone], CC: Davian Mccray Manual Training Teacher: Signed 19-Nov-2015 Bilat Scrn Digital AND CAD Result: Comments: See Note; NOTES: [facility] Imaging Services [address] [place] [address] Verdana 4d Bilat Scrn Digital AND CAD MR#: [id number] Acct: [id number] Name: MAR MAHARAJ Rep #: [id number] : 1945 F 70 From: Florian Valenzuela MD PCP: Davian Mccray Status: REG CLI Study: Bilat Scrn Digital AND CAD Date of Exam: 11/19/15 Exam# [id number] Ordering Dr: Davian Mccray MAMMOGRAPHY - BILATERAL [...] Florian Valenzuela MD at 10:06 EDT Tel [phone], Service support [phone], CC: Davian Mccray Manual Training Teacher: Signed 19-Nov-2015 Dexa Bone Density Study (HP) Result: Comments: See Note; NOTES: [facility] Imaging Services [address] [place] [address] Verdana 4d Dexa Bone Density Study () MR#: [id number] Acct: [id number] Name : MAR MAHARAJ Rep #: [id number] : 1945 F 70 From: Florian Valenzuela MD PCP: Davian Mccray Status: [facility] Study: Dexa Bone Density Study () Date of Exam: 11/19/15 Exam# [id number] Order ing Dr: Davian Mccray STUDY: DUAL [...] Florian Valenzuela MD at 12:53 EDT Tel [phone], Service support [phone], F ax [phone] CC: Davian Mccray Manual Training Teacher: Signed 19-Nov-2015 Thyroid Result: Comments: See Note; NOTES: [facility] Imaging Services [address] [place] [address] Verdana 4d Thyroid MR#: [id number] Acct: [id number] Name: MAR MAHARAJ Rep #: [id number] : 1945 F 70 From: Stephen Walton DO PCP: Davian Mccray Status: REG CLI Study: Thyroid Date of Exam: 11/19/15 Exam# [id number] Ordering Dr: Davian Mccray STUDY: THYROID ULTRASOUN [...] Stephen Walton DO at 16:48 EDT Tel [phone], Service support [phone], CC: Davian Mccray Manual Training Teacher: Signed 17-Dec-2014 Cerv Spine 2 or 3 Views Result: Comments: See Note; NOTES: [facility] Imaging Services [address] [place] [address] Radiology Report MR#: [id number] Acct: [id number] Name: MAR MAHARAJ Rep #: [id number] : 1945 F 69 From: Vitaly Turner MD PCP: Libby Mai DO Status: REG CLI Study: Cerv Spine 2 or 3 Views Date of Exam: 12/17/14 Exam# [id number] Ordering Dr: De Yepez STUDY: X-RAY - [...] at 11:32 EDT Tel , Service support [phone], 0045 RAD/Cerv Spine 2 or 3 Views IMPRESSION: Status post anterior fusion from C3-C6, with 3 mm extrusion of the C6 screw. Loss of the normal lordosis. No signs of instability. Electronically Signed: Vitaly Turner MD, FACR at 11:32 EDT , Service support [phone], CC: DE YEPEZ; Libby Mai DO Manual Training Teacher: Signed 17-Dec-2014 Spine Cervical (Routine) Result: Comments: See Note; NOTES: [facility] Imaging Services [address] [place] [address] MRI Report MR#: [id number] Acct: [id number] Name: MAR MAHARAJ Rep #: [id number] : 1945 F 69 From: Vitaly Turner MD PCP: Libby Mai DO Status: REG CLI Study: Spine Cervical (Routine) Date of Exam: 12/17/14 Exam# [id number] Ordering Dr: De Yepez STUDY: MRI CERVIC [...] FACR at 11:15 EDT , Service support [phone], CC: DE YEPEZ; Libby Mai DO Manual Training Teacher: Signed 15-Dec-2014 Thyroid Result: Comments: See Note; NOTES: [facility] Imaging Services [address] [place] [address] Ultrasound Report MR#: [id number] Acct: [id number] Name: MAR MAHARAJ Rep #: [id number] : 1945 F 69 From: Stephen Walton DO PCP: Libby Mai DO Status: REG CLI Study: Thyroid Date of Exam: 12/15/14 Exam# [id number] Ordering Dr: Lisa Garcia MD STUDY: THYROID [...] Stephen Walton DO at 13:38 EDT Tel [phone], Service support [phone], CC: Libby Mai DO; Lisa Garcia MD Manual Training Teacher: Signed 17-Nov-2014 Bilat Scrn Digital AND CAD Result: Comments: See Note; NOTES: [facility] Imaging Services [address] [facility] [place] [address] Breast Imaging Report MR#: [id number] Acct: [id number] Name: MAR MAHARAJ Rep #: [id number] : 1945 F 69 From: Alfa Bettencourt MD PCP: Libby Mai DO Status: REG CLI Study: Bilat Scrn Digital AND CAD Date of Exam: 11/17/14 Exam# [id number] Ordering Dr: Libby Mai DO MAMMOGR APHY [...] at 12:06 EDT Tel , Service support [phone], CC: Libby Mai DO Manual Training Teacher: Signed 17-Nov-2014 Chest without Contrast Result: Comments: See Note; NOTES: [facility] Imaging Services [address] [place] [address] CAT Scan Report MR#: [id number] Acct: [id number] Name: MAR MAHARAJ Rep #: [id number] : 1945 F 69 From: Alfa Bettencourt MD PCP: Libby Mai DO Status: REG CLI Study: Chest without Contrast Date of Exam: 11/17/14 Exam# [id number] Ordering Dr: Libby Mai DO STUDY: CT [...] at 10:21 EDT Tel , Service support [phone], CC: Libby Mai DO Manual Training Teacher: Signed 23-Sep-2014 Brain/Head without Contrast Result: Comments: See Note; NOTES: [facility] Imaging Services [address] [place] [address] CAT Scan Report MR#: [id number] Acct: [id number] Name: MAR MAHARAJ Rep #: [id number] : 1945 F 69 From: Parminder Rashid MD PCP: Libby Mai DO Status: REG ER Study: Brain/Head without Contrast Date of Exam: 09/23/14 Exam# [id number] Ordering Dr: Rachel Avina MD STUDY: CT [...] MD at 21:19 EST , Service support [phone], CC: Libby Mai DO; Rachel Avina MD Manual Training Teacher: Signed 23-Sep-2014 Spine Cervical without Contras Result: Comments: See Note; NOTES: [facility] Imaging Services [address] [facility] [place] [address] CAT Scan Report MR#: [id number] Acct: [id number] Name: MAR MAHARAJ Rep #: [id number] : 1945 F 69 From: Parminder Rashid MD PCP: Libby Mai DO Status: REG ER Study: Spine Cervical without Contras Date of Exam: 09/23/14 Exam# [id number] Ordering Dr: Rachel Avina MD LORENA DY: [...] MD at 21:25 EST , Service support [phone], CC: Libby Mai DO; Rachel Avina MD Manual Training Teacher: Signed 21-Aug-2014 Discharge Instruction Result: Comments: See Note; NOTES: [facility] Medical Records Department [address] [place] [address] Instructions for Home/Discharge Instructions 08/21/14 1712 MR#: [id number] Acc t: [id number] Name: MAR MAHARAJ Rep #: [id number] : 1945 69 From: Galo Antonio PA-C [...] needed. Additional Instructions: F/U APPT S PER [facility] POST-OP INSTRUCTIONS F/U WITH GLENN RO 09/03/14 9:15 AM PHYSICAL THERAPY APPT WITH CADE @ [facility] 08/25/14 @ 9:00 AM, WILL HAVE TO [...] Please Follow Up With: Glenn Ro 08/21/14 2346 <Electronically signed by Galo Antonio PA-C> Date ___ Galo Antonio PA-C CC: Libby Mai DO 19-Aug-2014 Knee 1 or 2 Views Result: Comments: See Note; NOTES: [facility] Imaging Services [address] [place] [address] Radiology Report MR#: [id number] Acct: [id number] Name: MAR MAHARAJ Rep #: [id number] : 1945 F 69 From: Bakari Kenny MD PCP: Libby Mai DO Status: ADM IN Study: Knee 1 or 2 Views Date of Exam: 08/19/14 Exam# [id number] Ordering Dr: Darien Avina MD STUDY: X-RAY [...] MD at 16:29 EST , Service support [phone], CC: Libby Mai DO; Darien Avina MD Manual Training Teacher: Signed 12-Aug-2014 History and Physical Exam Result: Comments: See Note; NOTES: [facility] Medical Records Department [address] [place] [address] History and Physical 08/11/14 1334 MR#: [id number] Acct: [id number] Name: MAR MAHARAJ Rep #: [id number] : 1945 69 From: Glenn Ro PCP: Libby Mai DO Status: PRE IN Location: [facility] DATE OF SERVICE: 08/19/2014 PRIMARY [...] b.i.d. REVIEW OF SYSTEMS: Documented in the [facility] medical history sheet. Please refer to the [...] of right knee dated May 30, 2014, [facility], weightbearing, AP, tunnel, [...] consent form. YADIRA Narvaez T: RUFUS JOB: [id number] 08/12/14 0740 <Electronically signed by Glenn Ro > Date: Time: Glenn Ro CC: Glenn Mai DO Date Dictated: 08/11/141333 Date Transcribed: 08/11/141333 Manual Training Teacher: Signed ____ I have re-examined the patient. There a re no clinical changes since date of exam. ____ See Progress Notes for Changes ____ Dictated on Admission Date: Time: Signature: 23-May-2014 Hip min 2 Views Result: Comments: See Note; NOTES: [facility] Imaging Services [address] [place] [address] Radiology Report MR#: [id number] Acct: [id number] Name: MAR MAHARAJ Rep #: [id number] : 1945 F 68 From: Florian Valenzueal MD PCP: Libby Mai DO Status: REG CLI Study: Hip min 2 Views Date of Exam: 05/23/14 Exam# [id number] Ordering Dr: Libby Mai DO STUDY: X-RAY [...] Florian Valenzuela MD at 9:41 EDT Tel [phone], Service support [phone], CC: Libby Mai DO Manual Training Teacher: Signed 23-May-2014 Knee 4 or More Views Result: Comments: See Note; NOTES: [facility] Imaging Services [address] [place] [address] Radiology Report MR#: [id number] Acct: [id number] Name: MAR MAHARAJ Rep #: [id number] : 1945 F 68 From: Florian Valenzuela MD PCP: Libby Mai DO Status: REG CLI Study: Knee 4 or More Views Date of Exam: 05/23/14 Exam# [id number] Ordering Dr: Libby Mai DO STUDY: X- [...] Florian Valenzuela MD at 9:42 EDT Tel [phone], Service support [phone], CC: Libby Mai DO Manual Training Teacher: Signed 02-May-2014 Chest without Contrast Result: Comments: See Note; NOTES: [facility] Imaging Services [address] [place] [address] CAT Scan Report MR#: [id number] Acct: [id number] Name: MAR MAHARAJ Rep #: [id number] : 1945 F 68 From: Cristhian Spears MD PCP: Libby Mai DO Status: REG CLI Study: Chest without Contrast Date of Exam: 05/02/14 Exam# [id number] Ordering Dr: Libby Mai DO STUDY: CT [...] at 15:32 EDT Tel , Service support [phone], CC: Libby Mai DO Manual Training Teacher: Signed 02-May-2014 Thyroid Result: Comments: See Note; NOTES: [facility] Imaging Services [address] [place] [address] Ultrasound Report MR#: [id number] Acct: [id number] Name: MAR MAHARAJ Rep #: [id number] : 1945 F 68 From: Stephen Walton DO PCP: Libby Mai DO Status: REG CLI Study: Thyroid Date of Exam: 05/02/14 Exam# [id number] Ordering Dr: Libby Mai DO STUDY: THYROID [...] Stephen Walton DO at 19:17 EDT Tel [phone], Service support [phone], CC: Libby Mai DO Manual Training Teacher: Signed 27-Feb-2014 L/S Spine Min 4 Views Result: Comments: See Note; NOTES: [facility] Imaging Services [address] [place] [address] Radiology Report MR#: [id number] Acct: [id number] Name: MAR MAHARAJ Rep #: [id number] : 1945 F 68 From: Florian Valenzuela MD PCP: Libby Mai DO Status: REG CLI Study: L/S Spine Min 4 Views Date of Exam: 02/27/14 Exam# [id number] Ordering Dr: De Yepez STUDY: X-R AY [...] Florian Valenzuela MD at 10:31 EDT Tel [phone], Service support [phone], RAD/L/S Spine Min 4 Views IMP RESSION: The patient is status post laminectomy and fusion at the L3-L4 and L4- L5 levels with bone graft and bone stimulator. Grade 2 anterolisthesis of L4 on L5. Electronically Signed: Florian khan MD at 10:31 EDT Tel [phone], Service support [phone], CC: DE YEPEZ; Libby Mai DO Manual Training Teacher: Signed 27-Feb-2014 Spine Lumbar (Routine) Result: Comments: See Note; NOTES: [facility] Imaging Services [address] [place] [address] MRI Report MR#: [id number] Acct: [id number] Name: MAR MAHARAJ Rep #: [id number] : 1945 F 68 From: Angus Arreola PCP: Libby Mai DO Status: REG CLI Study: Spine Lumbar (Routine) Date of Exam: 02/27/14 Exam# [id number] Ordering Dr: De Yepez STUDY: MRI LUMBAR [...] MD at 7:48 EDT , Service support [phone], CC: DE Mai DO Manual Training Teacher: Signed 10-Feb-2014 Cerv Spine 2 or 3 Views Result: Comments: See Note; NOTES: [facility] Imaging Services [address] [facility] [place] [address] Radiology Report MR#: [id number] Acct: [id number] Name: MAR MAHARAJ Rep #: [id number] : 1945 F 68 From: Florian Valenzuela MD PCP: Libby Mai DO Status: REG CLI Study: Cerv Spine 2 or 3 Views Date of Exam: 02/10/14 Exam# [id number] Ordering Dr: De Yepez STUDY: X -RAY [...] Florian Valenzuela MD at 15:54 EDT Tel [phone], Service support [phone], RAD/Cerv Spine 2 or 3 Views IMPRESSION: Status post anterior fu tamika at the C3-C4, C4-C5 and C5-C6 levels. No abnormal movement occurs between the vertebral segments. Electronically Signed: Florian Valenzuela MD at 15:54 EDT Tel [phone], Service support [phone], CC: DE YEPEZ; Libby Mai DO Manual Training Teacher: Signed 13-Jan-2014 Echocardiogram Complete Result: Comments: See Note; NOTES: [facility] Cardiovascular Services [address] [place] [address] Echo Complete 01/10/14 1155 MR#: [id number] Acct: [id number] Name: LESLY MAHARAJ Rep #: [id number] : 1945 68 From: Sergio Lawler MD Attending Dr: Nuris ARAGON,Sergio Status: REG CLI Ordering Dr: Sergio Lawler MD Date: 01/10/14 Location: [facility] Sex: F C Admitted: [facility] This was a 2D Doppler, Color Flow [...] Dictated: 01/10/14 1155 Date Transcribed: 01/13/14 1103 Manual Training Teacher: Signed 20-Jun-2013 Valeri Thrasher Digital & CAD Result: Comments: See Note; NOTES: [facility] Imaging Services [address] [place] [address] Breast Imaging Report MR#: [id number] Acct: [id number] Name: MAR MAHARAJ Rep #: [id number] : 1945 F 67 From: Florian Valenzuela MD PCP: Status: REG CLI Exam# [id number] Ordering Dr: Libby Mai DO MAMMOGRAPHY - [...] 20, 2013 at 9: 52:55 AM EDT [phone] Electronically Signed GP/GP If you are the referring physician and would like to consult with the radiologist who provided this interpretation, please contact Florian Valenzuela M.D. at [phone]. If this radiologist is unavailable, you will be directed to another radiologist to assist. If you are a patient with a question regarding this report, please contact your referring physician directly. Professional Interpretation Provided By: [employer] [place], Phone , These documents contain legally protected [...] of these documents. CC: Hari Mai DO Manual Training Teacher: Signed 20-Jun-2013 Dexa Bone Density Study (HP) Result: Comments: See Note; NOTES: [facility] Imaging Services [address] [place] [address] Bone Density Report MR#: [id number] Acct: [id number] Name: MAR MAHARAJ Rep #: [id number] : 1945 F 67 From: Florian Valenzuela MD PCP: Status: [facility] Study: Dexa Bone Density Study (HP) Date of Exam: 06/20/13 Exam# [id number] Ordering Dr: Libby Mai DO STUDY: DUAL [...] angel luis mbar spine. On the lateral plow and boring machine tender view, there is evidence of loss of [...] June 20, 2013 at 10:14:39 AM EDT [phone] Electronically Signed GP/GP If you are the referring physician and would like to consult with the radiologist who provided this interpretation, please contact Florian Valenzuela M.D. at [phone]. If this radiologist is unavailable, you will be directed to another radiologist to assist. If you are a patient with a question regarding this report, plea se contact your referring physician directly. Professional Interpretation Provided By: [employer] [place], Phone , These documents contain legally protected [...] of these documents. CC: Libby Mai DO Manual Training Teacher: Signed 06-Jun-2013 Chest without Contrast Result: Comments: See Note; NOTES: [facility] Imaging Services [address] [place] [address] CAT Scan Report MR#: [id number] Acct: [id number] Name: MAR MAHARAJ Rep #: [id number] : 1945 F 67 From: Florian Valenzuela MD PCP: Status: REG CLI Study: Chest without Contrast Date of Exam: 06/06/13 Exam# [id number] Ordering Dr: Libby Mai DO STUDY: CT [...] June 06, 2013 at 10:07:38 AM EDT [phone] Electronically Signed GP/GP If you are the referring physician and would like to consult with the radiologist who provided this interpretation, please contact Florian Valenzuela M.D. at [phone]. If this radiologist is unavailable, you will be directed to another radiologist to assist. If you are a patient with a question regarding this report, please contact your referring physician directly. Professional Interpretation Provided By: [employer] [place], Phone , These documents contain legally protected [...] of these documents. CC: Libby Mai DO Manual Training Teacher: Signed 06-Jun-2013 Chest without Contrast Result: Comments: See Note; NOTES: [facility] Imaging Services [address] [place] [address] CAT Scan Report MR#: [id number] Acct: [id number] Name: MAR MAHARAJ Rep #: [id number] : 1945 F 67 From: Florian Valenzuela MD PCP: Status: REG CLI Study: Chest without Contrast Date of Exam: 06/06/13 Exam# [id number] Ordering Dr: Libby Mai DO STUDY: CT [...] June 06, 2013 at 10:07:38 AM EDT [phone] Electronically Signed GP/GP If you are the referring physician and would like to consult with the radiologist who provided this interpretation, please contact Florian Valenzuela M.D. at [phone]. If this radiologist is unavailable, you will be directed to another radiologist to assist. If you are a patient with a question regarding this report, please contact your referring physician directly. Professional Interpretation Provided By: [employer] [place], Phone , These documents contain legally protected [...] of these documents. CC: Libby Mai DO Manual Training Teacher: Signed Immunization Name Dates Details Pneumococcal (2 years and up) on: 2016 Comments: [facility] Family History Unknown Family Member Name Dates Details Father Comments: COPD, Smoker - Status: Active Mother Comments: Breast CA, DM, HTN, Lung CA - Status: Active Social History Name Dates Details Alcohol Use Comments: Occasional alcohol use Status: Active Caffeine Use Comments: 2 QD Status: Active Current Work/Study Status Comments: Part-time, [employer] In [employer] Status: Active Exercise History Comments: Light Status: Active Living Situation Comments: Lives alone Status: Active No Drug Use Status: Active Non Smoker/No Tobacco Use Comments: 04/20/11 Status: Active 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, [address] GAP 11 (Normal) Range: 5-15 CO2 28.0 [...] A.D.A. criteria.Please note revised GLUCOSE reference range sihzciqee39/02/2018. :32 HgA1C , Office (03036) HgA1C , Office 6.3 % (Normal) Range: 4.6 - 7.1 :32 Blood Glucose , Office (59653) Blood Glucose , Office 133 (Normal) :16 Miscellaneous Lab Procedure Comments: Comments: [id number]; URINE TOX; RUN LOWEST TEST IN LABCOTest(s) Ordered: [id number]; URINE TOX; RUN LOWEST TEST IN [facility] [address] [place], [place], [address] [facility] Comments: [id number] 6+OXYCODONE-BUND (ng/mL)DRUG RESULT SCREEN CUTOFF____ Amphetamines,Urine Negat LAB (Normal) ananth ng/mL 1000Amphetamine test includes Amphetamine and Methamphetamine.Barbiturates Negative ng/mL 200Benzodiazepines Negative ng/mL 200Cannabinoid TEST Negative ng/mL 20Cocaine (Metab) Negative ng/mL 300Opiates Negative ng/mL 300 Opiates test includes Codeine, Morphine, Hydromorphone, [place] codone.Oxycodone/Oxymorphone,Urine Negative ng/mL 300 Test includes Oxydodone and Oxymorphone. TESTING PERFORMED AT [facility]. ORIGINAL REPORT ON FILE IN LAB CONTAINS ADDITIONAL TEST SITE INFORMATION. :16 Urine Drug Screen (VISTA) Comments: Comments: [id number]; URINE TOX; RUN LOWEST TEST IN LABCORPList of Drugs Taken or Suspected? [facility] [address] [place], [address] THC NEGATIVE (Normal) PCP NEGATIVE [...] TESTING MUST BE ORDERED SEPARATELY. USE TESTMNEMONIC: [facility] :28 Microscopic Examination Comments: PATIENT WAS FASTINGPERFORMED BY: LabCoSt. [facility] HospitalAoojqw6746 [facility] [id number] Bacteria Few (Normal) Mucus Threads Present (Normal) Epithelial Cells (non renal) 0-10 {/hpf} (Normal) Range: 0 - 10 RBC 0-2 {/hpf} (Normal) Range: 0 - 2 WBC 0-5 {/hpf} (Normal) Range: 0 - 5 :52 Basic Metabolic Profile (BMP) Comments: [facility] [address] [place], [place], [address] GAP 10 (Normal) Range: 5-15 CO2 27.0 [...] A.D.A. criteria.Please note revised GLUCOSE reference range kjycqixez92/02/2018. 07-May-20188:52 CBC W/Diff, Automated Comments: [facility] [address] [place], [place], [address] Absolute Lymph 1.75 {X10_3/ul} (Normal) Range: 0.83-4.51 [...] Range: 4.4-11.0 :05 CBC W/Diff, Automated Comments: [facility] [address] [place], [place], [address] Absolute Lymph 1.82 {X10_3/ul} (Normal) Range: 0.83-4.51 [...] Range: 4.4-11.0 :05 Comprehensive Metabolic Profil Comments: [facility] [address] [place], [address] GAP 12 (Normal) Range: 5-15 CO2 28.0 [...] A.D.A. criteria.Please note revised GLUCOSE reference range nrnjmaybr50/02/2018. 80-Jgo-93869:28 CALCIFEDIOL (16926) Comments: PATIENT WAS FASTINGPERFORMED BY: LabCoSt. Joseph[facility] Wayne HospitalRxtinx6816 [facility] [id number] Vitamin D, 25-Hydroxy 45.7 ng/mL (Normal) Range: 30.0-100.0 Comments: Vitamin D deficiency has been defined by the [place] of[place]icine and an Endocrine Society practice guideline as alevel of serum 25-OH vitamin D less than 20 ng/mL (1,2).The Endocrine Society went on to further define vitamin Dinsufficiency as a level between 21 and 29 ng/mL (2).1. IOM ([place] of Medicine). 2010. Dietary reference intakes for calcium and D. [place]: The National Academies Press.2. Delma MF, Mckenna ABDALLA, Dane MACKENZIE, et al. Evaluation, treatment, and prevention of vitamin D deficiency: an Endocrine Society clinical practice guideline. JCEM. 2010; 96(7):1911-30. :28 VITAMIN B-12 (CYANOCOBALAMIN) Comments: PATIENT WAS FASTINGPERFORMED BY: [employer] Imagein [place] [id number] (37510) Vitamin B12 507 pg/mL (Normal) Range: 232-1245 :28 TSH (93501) Comments: PATIENT WAS FASTINGPERFORMED BY: [employer] [address] [place] [id number] TSH 0.816 {uIU/mL} (Normal) Range: 0.450-4.500 :28 URINALYSIS, W/ MICRO (13847) Comments: PATIENT WAS FASTINGPERFORMED BY: [employer] [place] [id number] Microscopic Examination See below: (Normal) Comments: Microscopic was indicated and was performed. Nitrite, Urine Negative (Normal) Urobilinogen,Semi-Qn 0.2 mg/dL (Normal) Range: 0.2-1.0 Bilirubin Negative (Normal) Occult Blood Negative (Normal) Ketones Negative (Normal) Glucose Negative (Normal) Protein Negative (Normal) WBC Esterase 1+ (Abnormal) Appearance Clear (Normal) Urine-Color Yellow (Normal) pH 7.0 (Normal) Range: 5.0-7.5 Specific Lytle 1.017 (Normal) Range: 1.005-1.030 :28 MICROALBUMIN: CREATININE RATIO Comments: PATIENT WAS FASTINGPERFORMED BY: [employer] Vwqxik4739 [facility] [id number] (96357) AND (40280) Alb/Creat Ratio 9.9 {mg/g_creat} (Normal) Range: 0.0-30.0 Albumin, Urine 7.9 ug/mL (Normal) Creatinine, Urine 79.8 mg/dL (Normal) :28 METABOLIC PANEL, COMPREHENSIVE Comments: PATIENT WAS FASTINGPERFORMED BY: LabKulara Water6370 [facility] [id number] (47673) ALT (SGPT) 13 [iU]/L (Normal) Range: 0-32 [...] 8-27 Glucose 142 mg/dL (Abnormal) Range: 65-99 89-Klp-96866:28 LIPID PANEL (97191) Comments: PATIENT WAS FASTINGPERFORMED BY: LabCoPlains Regional Medical CenterIlwdwh3285 [facility] [id number] LDL/HDL Ratio 3.2 {ratio} (Normal) Range: 0.0-3.2 Comments: LDL/HDL Ratio Men Women 1/2 Avg.Risk 1.0 1.5 Av g.Risk 3.6 3.2 2X Avg.Risk 6.2 5.0 3X Avg.Risk 8.0 6.1 LDL Cholesterol Calc 143 mg/dL (Abnormal) Range: 0-99 VLDL Cholesterol Peg 29 mg/dL (Normal) Range: 5-40 HDL Cholesterol 45 mg/dL (Normal) Triglycerides 143 mg/dL (Normal) Range: 0-149 Cholesterol, Total 217 mg/dL (Abnormal) Range: 100-199 94-Egf-69602:28 CBC W/AUTO DIFF WBC (09966) Comments: PATIENT WAS FASTINGPERFORMED BY: LabCoSt. Joseph[facility] HospitalEiyhdf7256 [facility] [id number] Immature Grans (Abs) 0.0 {x10E3/uL} (Normal) Range: [...] (Normal) Range: 3.4-10.8 :43 HgA1C , Office (20260) HgA1C , Office 6.3 % (Normal) Range: 4.6 - 7.1 :43 Blood Glucose , Office (76770) Blood Glucose , Office 105 (Normal) :55 MAGNESIUM (17655) Comments: PATIENT NOT FASTINGPERFORMED BY: [facility] Udsogm8649 [facility] [id number] Magnesium 1.6 mg/dL (Normal) Range: 1.6-2.3 :55 POTASSIUM SERUM (38935) Comments: PATIENT NOT FASTINGPERFORMED BY: [facility] Lyhhtz7218 [facility] [id number]; ov 02/19 Potassium 4.8 mmol/L (Normal) Range: 3.5-5.2 :59 CBC W/Diff, Automated Comments: [facility] [address] [place], [place], [address] Absolute Lymph 2.55 {X10_3/ul} (Normal) Range: 0.83-4.51 [...] Range: 4.4-11.0 07-Dec-20178:59 Comprehensive Metabolic Profil Comments: [facility] [address] [place], [address] GAP 8 (Normal) Range: 5-15 CO2 32.0 mmol/L (Normal) Range: 21.0-32.0 CL 100 mmol/L (Normal) Range: 98-107 K 3.4 mmol/L (Abnormal) Range: 3.5-5.1 NA 140 mmol/L (Normal) Range: 136-145 T BILI 0.40 mg/dL (Normal) Range: 0.20-1.00 ALT 21 U/L (Normal) Range: 13-56 Comments: Please note revised ALT reference range zktoqvjxa64/28/2018. ALK P 76 U/L (Normal) Range: 45-117 [...] A.D.A. criteria.Please note revised GLUCOSE reference range ppzfqfwow96/02/2018. 9-Nnr-189525:40 Microscopic Examination Comments: PATIENT WAS FASTINGPERFORMED BY: [employer] [address] [id number] BY: ListRunner[address] [facility] [place] [id number] Bacteria Few (Normal) Epithelial Cells (non renal) 0-10 {/hpf} (Normal) Range: 0 - 10 RBC None seen {/hpf} (Normal) Range: 0 - 2 WBC 0-5 {/hpf} (Normal) Range: 0 - 5 8-Cax-343113:40 VITAMIN B-12 (CYANOCOBALAMIN) Comments: PATIENT WAS FASTINGPERFORMED BY: [employer] [address] [id number] BY: [employer] [facility] [place] [id number] (32613) Vitamin B12 470 pg/mL (Normal) Range: 232-1245 7-Lgl-319710:40 CALCIFIDIOL (54636) VIT D Comments: PATIENT WAS FASTINGPERFORMED BY: [employer] [address] [id number] BY: [employer] Recyclerslin6370 [address] [facility] [id number] 25 Vitamin D, 25-Hydroxy 36.1 ng/mL (Normal) Range: 30.0-100.0 Comments: Vitamin D deficiency has been defined by the [place] of[place]icine and an Endocrine Society practice guideline as alevel of serum 25-OH vitamin D less than 20 ng/mL (1,2).The Endocrine Society went on to further define vitamin Dinsufficiency as a level between 21 and 29 ng/mL (2).1. IOM ([place] of [place]). 2010. Dietary reference intakes for calcium and D. [place]: The National Academies Press.2. Delma MF, Mckenna ABDALLA, Dane MACKENZIE, et al. Evaluation, treatment, and prevention of vitamin D deficiency: an Endocrine Society clinical practice guideline. JCEM. 2010; 96(7):1911-30. 8-Acm-048998:40 LIPOPROTEIN, BLD, BY NMR Comments: PATIENT WAS FASTINGPERFORMED BY: BN [facility] Qhsfflccnc5504 [facility] [id number] BY: CB [facility] Jnuvrj0136 [facility] [id number] (37038) LP-IR Score 80 (Abnormal) Comments: INSULIN RESISTANCE MARKER <--Insulin Sensitive Insulin Resistant--> Percentile in Reference PopulationInsulin Resistance ScoreLP-IR Score Low 25th 50th 75th High <27 27 45 63 >63LP-IR Score is inaccurate if patient is non-fasting. .The LP-IR score is a laboratory developed i [facility] [employer] [facility] that has beenassociated with insulin resistance and [...] were developed and their performance characteristicsdetermined by [facility]. These assays have not been cleared by [...] 1600 - 2000 Very High > 2000 6-Ypg-648915:40 TSH (42660) Comments: PATIENT WAS FASTINGPERFORMED BY: [employer] [place] [address] [id number] BY: [employer] Uyczlv8902 [facility] [id number] TSH 1.780 {uIU/mL} (Normal) Range: 0.450-4.500 6-Bgh-069281:40 URINALYSIS, W/ MICRO Comments: PATIENT WAS FASTINGPERFORMED BY: Float: [place] [id number] BY: [employer] Alzekx6050 [facility] [id number] (68104) Microscopic Examination See below: (Normal) Comments: Microscopic was indicated and was performed. Microscopic Examination MICRON (Normal) Comments: Microscopic follows if indicated. Nitrite, Urine Negative (Normal) Urobilinogen,Semi-Qn 0.2 mg/dL (Normal) Range: 0.2-1.0 Bilirubin Negative (Normal) Occult Blood Negative (Normal) Ketones Negative (Normal) Glucose Negative (Normal) Protein Negative (Normal) WBC Esterase Negative (Normal) Appearance Clear (Normal) Urine-Color Yellow (Normal) pH 7.5 (Normal) Range: 5.0-7.5 Specific Lytle 1.016 (Normal) Range: 1.005-1.030 5-Igj-590905:40 MICROALBUMIN: CREATININE Comments: PATIENT WAS FASTINGPERFORMED BY: [employer] [id number] BY: CitiusTechDiana [place] [id number] [facility] [id number] RATIO (51718) AND (51487) Alb/Creat Ratio 8.6 {mg/g_creat} (Normal) Range: 0.0-30.0 Albumin, Urine 4.7 ug/mL (Normal) Creatinine, Urine 54.7 mg/dL (Normal) 6-Xim-347230:40 METABOLIC PANEL, Comments: PATIENT WAS FASTINGPERFORMED BY: [employer] [id number] BY: CitiusTechSt. Joseph's Wayne HospitalAbhpkw1702 [facility] [id number] COMPREHENSIVE (45316) ALT (SGPT) 17 [iU]/L (Normal) Range: 0-32 [...] 8-27 Glucose 99 mg/dL (Normal) Range: 65-99 7-Dcp-944382:40 CBC W/AUTO DIFF WBC Comments: PATIENT WAS FASTINGPERFORMED BY: BN [facility] Zzhubwvvbs7086 [facility] [id number] BY: CB [facility] Dbqsij6221 [facility] [id number]; ov tomrrow 12/07 (82959) Immature Grans (Abs) 0.0 {x10E3/uL} (Normal) Range: [...] (Normal) Range: 3.4-10.8 :26 HgA1C , Office (75589) HgA1C , Office 6.7 % (Normal) Range: 4.6 - 7.1 :26 Blood Glucose , Office (76480) Blood Glucose , Office 141 (Normal) 9-Kwt-976514:10 CBC W/Diff, Automated Comments: [facility] [address] [place], [address] Absolute Lymph 2.70 {X10_3/ul} (Normal) Range: 0.83-4.51 [...] 4.2-5.4 WBC 7.1 K/mm3 (Normal) Range: 4.4-11.0 3-Jyc-410504:10 Comprehensive Metabolic Profil Comments: [facility] [address] [place], [place], [address] GAP 10 (Normal) Range: 5-15 CO2 28.0 mmol/L (Normal) Range: 21.0-32.0 CL 100 mmol/L (Normal) Range: 98-107 K 3.8 mmol/L (Normal) Range: 3.5-5.1 NA 138 mmol/L (Normal) Range: 136-145 T BILI 0.40 mg/dL (Normal) Range: 0.20-1.00 ALT 16 U/L (Normal) Range: 13-56 Comments: Please note revised ALT reference range tgjjruldk59/28/2018. ALK P 81 U/L (Normal) Range: 45-117 [...] 126 mg/dLsuggests DIABETES MELLITUS per A.D.A. criteria. 2-Umf-692738:10 CRP Comments: [facility] [address] [place], [address] C-REACTIVE PROT 4.26 mg/L (Abnormal) Range: 0.0-3.0 Comments: C-Reactive Protein (CRP) provides useful information for thediagnosis, therapy and monitoring of inflammatory processesand associated diseases. For the evaluation of Relative Riskfor Cardiovascular Dise ase, a High Sensitivity CRP (HSCRP)should be ordered. 8-Hzd-829591:10 Erythrocyte Sed Rate Comments: [facility] [address] [place], [address] SED RATE 7 mm/h (Normal) Range: 0-30 07-Sep-20178:49 Rapid Flu (22598 x 2) Influenza A Ag Positive (Normal) Comments: A, no flu shot 6-Lhn-539987:31 Rapid Strep Test, Office (18356) Rapid Strep Test, Office Negative (Normal) :51 THROAT CULTURE (71297) Comments: PATIENT NOT FASTINGPERFORMED BY: [employer] [facility] RegionIconic TherapeuticsAt[facility] Health [facility] Baptist [id number] Information: SRC:TH Result 1 RRF (Normal) Comments: Routine respiratory vicente Upper Respiratory Final report Culture (Normal) Lipase, Serum 11 U/L (Abnormal) Comments: PATIENT NOT FASTINGPERFORMED BY: Scour Prevention6370 [facility] [id number] :30 Range: 14-85 Written Authorization WAR (Normal) Comments: PATIENT NOT FASTINGPERFORMED BY: [employer] Gvjind6184 [facility] [id number] :30 Comments: Written Authorization Received.Authorization received from original requistion [id number] by Ann Hartley :30 METABOLIC PANEL, COMPREHENSIVE Comments: stat; PATIENT NOT FASTINGPERFORMED BY: [employer] Trqrob1882 [facility] [id number] (71866) ALT (SGPT) 5 [iU]/L (Normal) Range: 0-32 [...] Glucose, Serum 99 mg/dL (Normal) Range: 65-99 1-Gyz-379637:30 CBC W/AUTO DIFF WBC (06203) Comments: stat; PATIENT NOT FASTINGPERFORMED BY: [facility] Zouybn9933 [facility] [id number] Immature Grans (Abs) 0.0 {x10E3/uL} (Normal) Range: [...] 3.77-5.28 WBC 7.3 {x10E3/uL} (Normal) Range: 3.4-10.8 4-Trg-110910:31 Rapid Flu (81888 x 2) Influenza A Ag Negative (Normal) 91-Dpa-779446:28 HgA1C , Office (98392) HgA1C , Office 6.3 % (Normal) Range: 4.6 - 7.1 54-Ikr-771706:28 Blood Glucose , Office (90175) Blood Glucose , Office 133 (Normal) 07-Ass-753132:27 VITAMIN B-12 (CYANOCOBALAMIN) Comments: PATIENT NOT FASTINGPERFORMED BY: [employer] eMeter [facility] RegionIconic TherapeuticsAtrium Health [facility] [id number] (30776) Vitamin B12 258 pg/mL (Normal) Range: 211-946 20-Edx-648122:27 MAGNESIUM (26007) Comments: PATIENT NOT FASTINGPERFORMED BY: [employer] Doyle [facility] RegionIconic TherapeuticsAtrium Health [facility] [id number] Magnesium, Serum 1.6 mg/dL (Normal) Range: 1.6-2.3 11-Kqb-255037:27 Metabolic Panel, Basic Comments: PATIENT NOT FASTINGPERFORMED BY: [employer] VirtualUAtrium Health [facility] Baptist [id number] (45309) Calcium, Serum 9.3 mg/dL (Normal) Range: 8.7-10.3 [...] Urinalysis, Complete Comments: How was Urine Obtained? ACID REMOVER TO [facility] [address] [place], [place], [id number] MUCUS, URINE 0 SEEN {/hpf} (Normal) BACTERIA [...] Yellow (Normal) :15 CBC W/Diff, Automated Comments: [facility] Nknwycnbju7648 [facility] [address]. [place], [place], [address] Absolute Lymph 1.41 {X10_3/ul} (Normal) Range: 0.83-4.51 [...] 4.2-5.4 WBC 7.7 K/mm3 (Normal) Range: 4.4-11.0 57-Epj-784936:15 Comprehensive Metabolic Profil Comments: [facility] [address] [place], [place], [address] GAP 6 (Normal) Range: 5-15 CO2 33.0 [...] 7-18 GLU 101 mg/dL (Normal) Range: 70-110 62-Lyr-257566:09 CBC W/Diff, Automated Comments: [facility] [address] [place], [address] ; another doc Absolute Lymph 1.90 {X10_3/ul} [...] 4.2-5.4 WBC 6.6 K/mm3 (Normal) Range: 4.4-11.0 01-Ptz-901814:09 Comprehensive Metabolic Profil Comments: [facility] Tabmrfgdzu[address] [place], [place], [address] GAP 10 (Normal) Range: 5-15 CO2 25.0 [...] 126 mg/dLsuggests DIABETES MELLITUS per A.D.A. criteria. 17-Ynu-787559:09 Lipase Comments: [facility] [address] [place], [address] LIPASE 42 U/L (Abnormal) Range: 73-393 1-Ucw-787762:19 Metabolic Panel, Comprehensive Comments: PATIENT NOT FASTINGPERFORMED BY: [facility] Iphgsf9675 [facility] [id number] (08829) ALT (SGPT) 11 [iU]/L (Normal) Range: 0-32 [...] Glucose, Serum 108 mg/dL (Abnormal) Range: 65-99 8-Eix-599738:19 HGB A1C (93195) Comments: PATIENT NOT FASTINGPERFORMED BY: [facility]6370 [facility] [id number] Hemoglobin A1c 5.9 % (Abnormal) Range: 4.8-5.6 Comments: . Pre-diabetes: 5.7 - 6.4 Diabetes: >6.4 Glycemic control for adults with diabetes: <7.0 :19 MAGNESIUM (45989) Comments: PATIENT NOT FASTINGPERFORMED BY: [place] [id number] [facility] [id number] Magnesium, Serum 1.7 mg/dL (Normal) Range: 1.6-2.3 :19 CBC, Platelets & Auto Diff Comments: PATIENT NOT FASTINGPERFORMED BY: Contour, LLCAscension Borgess-Pipp Hospital6370 [facility] [id number] (20641) Immature Grans (Abs) 0.0 {x10E3/uL} (Normal) Range: [...] 3.77-5.28 WBC 9.5 {x10E3/uL} (Normal) Range: 3.4-10.8 44-Adu-796763:41 Comprehensive Metabolic Profil Comments: REDRAW. PREVIOUS SPECIMEN REJECTED DUE TOHEMOLYSIS. 04/28/17 1128 Aura Ch.[facility] [address]ymxso[address] [place], [place], [address] GAP 6 (Normal) Range: 5-15 CO2 25.0 [...] 126 mg/dLsuggests DIABETES MELLITUS per A.D.A. criteria. 22-Pmm-662054:05 Urinalysis, Complete Comments: Order Date: 04/28/17Has pt arrived? YHow was Urine Obtained? [facility] [address]nxwqcu[address] [place], [place], [id number] AMORPHOUS 1+ (Normal) MUCUS, URINE 0 SEEN [...] CLARITY Sl. Cloudy (Normal) COLOR Yellow (Normal) 79-Sfc-423892:00 CBC W/Diff, Automated Comments: [facility] [address]is[address] [place], [address] Absolute Lymph 1.58 {X10_3/ul} (Normal) [...] 4.2-5.4 WBC 25.0 K/mm3 (Abnormal) Range: 4.4-11.0 13-Lzk-823653:00 Lactic Acid Comments: Yes/No query for Sepsis Lactate Rule [facility] [address] [place], [address] LACTIC ACID 1.6 mmol/L (Normal) Range: 0.4-2.0 51-Ynr-856642:00 Partial Thromboplast Time Comments: [facility] [address]tljl[address] [place], [address] PTT 22.4 s (Abnormal) Range: 24.1-36.2 73-Btg-648895:00 Prothrombin Time w/INR Comments: [facility] [address]wo[address] [place], [address] INR 1.0 (Normal) PROTIME 12.8 s (Normal) Range: 11.7-14.9 14-Cjb-38988:50 Miscellaneous Lab Procedure Comments: Comments: [id number]; URINE TOX; RUN LOWEST TEST IN LABCORPTest(s) Ordered: [id number]; URINE TOX; RUN LOWEST TEST IN [facility] [address]wz[address]rukw[address] [place], [id number] [facility] Comments: [id number] 6+OXYCODONE-BUND (ng/mL)DRUG RESULT SCREEN CUTOFF____ Amphetamines,Urine Negat LAB (Normal) ananth ng/mL 1000Amphetamine test includes Amphetamine and Methamphetamine.Barbiturates Negative ng/mL 200Benzodiazepines Negative ng/mL 200Cannabinoid TEST Negative ng/mL 20Cocaine (Metab) Negative ng/mL 300Opiates Positive ng/mL 300 Opiates test includes Codeine, Morphine, Hydromorphone, [place] codone.Please Note:Confirmation performed by Mass SpectrometryCodeine Negative 300Morphine Positive Morphine Confirm >3000 ng/mL 300Hydromor phone Negative 300Hydrocodone Negative 300Oxycodone/Oxymorphone,Urine Negative ng/mL 300 Test includes Oxydodone and Oxymorphone. TESTING PERFORMED AT [facility]. ORIGINAL REPORT ON FILE IN LAB CONTAINS ADDITIONAL TEST SITE INFORMATION. :50 Urine Drug Screen (VISTA) Comments: Comments: [id number]; URINE TOX; RUN LOWEST TEST IN LABCOList of Drugs Taken or Suspected? [facility] Auzskmootr13[address], [id number] THC NEGATIVE (Normal) PCP NEGATIVE (Normal) OPIATES [...] TESTING MUST BE ORDERED SEPARATELY. USE TESTMNEMONIC: [facility] :00 Basic Metabolic Profile (BMP) Comments: 'TROP' Serial specimen #1, #2, #3, or #4: 1[facility] [address]xg[address] [place], [place], [address] GAP 10 (Normal) Range: 5-15 CO2 28.0 [...] A.D.A. criteria. :00 CBC W/Diff, Automated Comments: [facility] [address] [place], [place], [address] ; another doc Absolute Lymph 1.20 {X10_3/ul} [...] 4.2-5.4 WBC 4.0 K/mm3 (Abnormal) Range: 4.4-11.0 55-Naz-32241:00 Lipase Comments: 'TROP' Serial specimen #1, #2, #3, or #4: [address] [place] [address] [place], [address] LIPASE 82 U/L (Normal) Range: 73-393 47-Cpm-14148:00 Liver Profile Comments: 'TROP' Serial specimen #1, #2, #3, or #4: [address] [place] [address] [address] [place], [address] D BILI 0.12 mg/dL (Normal) Range: 0.00-0.30 T BILI 0.50 mg/dL (Normal) Range: 0.20-1.00 ALT 13 U/L (Normal) Range: 12-78 ALK P 58 U/L (Normal) Range: 45-117 AST 6 U/L (Abnormal) Range: 15-37 GLOB 3.4 g/dL (Normal) Range: 2.3-3.5 ALB 3.7 g/dL (Normal) Range: 3.4-5.0 T PROT 7.1 g/dL (Normal) Range: 6.4-8.2 24-Pna-76021:00 Troponin-I Comments: 'TROP' Serial specimen #1, #2, #3, or #4: 1[facility] [address]xpk[address] [place], [address] TROPONIN-I < 0.02 ng/mL (Normal) Comments: TROPONIN-I EXPECTED VALUES <0.05 NEGATIVE 0.06 - 0.59 AT RISK OF GA > OR = 0.60 SUGGEST GA 68-Zfn-261268:01 Renal Profile Comments: Order Date: 01/17/17Order Info: [id number] - RENALOrder Info: [id number] - MGOrder Date: 01/17/17Order Info: [id number] - [facility]GG[facility] [address]dflf[address] [place], [phone] CO2 31.0 mmol/L (Normal) Range: 21.0-32.0 CL [...] 7-18 GLU 102 mg/dL (Normal) Range: 70-110 41-Ltu-351199:01 MAGNESIUM (60955) Comments: Order Date: 01/17/17Order Info: [id number]- [id number] - RENALOrder Info: [id number] - MGOrder Date: 01/17/17Order Info: [id number] - MGWooOhio [facility] Hospital [address] [place], [phone] MG 1.5 mg/dL (Abnormal) Range: 1.8-2.4 Comments: Moderate Hemolysis, Result may be falsely increased. 58-Ceh-531211:25 CBC W/Diff, Automated Comments: [facility] [address] [place], [address] Absolute Lymph 1.62 {X10_3/ul} (Normal) Range: 0.83-4.51 [...] 4.2-5.4 WBC 10.3 K/mm3 (Normal) Range: 4.4-11.0 11-Clx-460321:25 Comprehensive Metabolic Profil Comments: 'TROP' Serial specimen #1, #2, #3, or #4: [address] [place] [address] [address] [place], [place], [address] GAP 10 (Normal) Range: 5-15 CO2 29.0 [...] <126 mg/dLsuggests IMPAIRED HOMEOSTASIS per A.D.A. criteria. 14-Air-839099:25 Lipase Comments: 'TROP' Serial specimen #1, #2, #3, or #4: [address] [place] [address] [address] [place], [place], [address] LIPASE 52 U/L (Abnormal) Range: 73-393 35-Vvt-885126:25 Partial Thromboplast Time Comments: [facility] [address] [place], [place], [address] PTT 32.0 s (Normal) Range: 24.1-36.2 32-Uej-382805:25 Prothrombin Time w/INR Comments: [facility] [address]bsi[address] [place], [place], [address] INR 1.0 (Normal) PROTIME 13.1 s (Normal) Range: 11.7-14.9 33-Bju-391954:25 Troponin-I Comments: 'TROP' Serial specimen #1, #2, #3, or #4: [address] [place] [address] [address] [place], [place], [address] TROPONIN-I 0.93 ng/mL (Abnormal) Comments: Critical Result(s) Called INDRA Tyson at: 12:03:56012/19/2016 by: JAYDA CRAIG TROPONIN-I EXPECTED VALUES <0.05 NEGATIVE 0.06 - 0.59 AT RISK OF GA > OR = 0.60 SUGGEST GA 85-Bww-441389:40 Urinalysis, Complete Comments: How was Urine Obtained? ACID REMOVER TO [facility] Q[address]btptbp[address] [place], [address] MUCUS, URINE 0 SEEN {/hpf} (Normal) BACTERIA [...] CLARITY Sl. Cloudy (Normal) COLOR Yellow (Normal) 21-Qcx-465762:09 CBC W/Diff, Automated Comments: [facility] [address]oeiy[address] [place], [address] Absolute Lymph 1.33 {X10_3/ul} (Normal) Range: 0.83-4.51 [...] 4.2-5.4 WBC 5.7 K/mm3 (Normal) Range: 4.4-11.0 19-Xgt-756079:09 Comprehensive Metabolic Profil Comments: 'TROP' Serial specimen #1, #2, #3, or #4: 1[facility] [address] [place], [place], [address] GAP 8 (Normal) Range: 5-15 CO2 33.0 [...] <126 mg/dLsuggests IMPAIRED HOMEOSTASIS per A.D.A. criteria. 00-Ban-203322:09 Lactic Acid Comments: [facility] [address] [place], [address] LACTIC ACID 1.5 mmol/L (Normal) Range: 0.4-2.0 38-Vgu-658596:09 Lipase Comments: 'TROP' Serial specimen #1, #2, #3, or #4: [address] [place] [address] [address] [place], [address] LIPASE 40 U/L (Abnormal) Range: 73-393 :09 Partial Thromboplast Time Comments: [facility] [address]ax[address] [place], [address] PTT 38.3 s (Abnormal) Range: 24.1-36.2 :09 Prothrombin Time w/INR Comments: [facility] [address] [place], [address] INR 1.3 (Normal) PROTIME 15.8 s (Abnormal) Range: 11.7-14.9 :09 Troponin-I Comments: 'TROP' Serial specimen #1, #2, #3, or #4: [address] [place] [address] [address] [place], [address] TROPONIN-I < 0.02 ng/mL (Normal) Comments: TROPONIN-I EXPECTED VALUES <0.05 NEGATIVE 0.06 - 0.59 AT RISK OF GA > OR = 0.60 SUGGEST GA 72-Bac-300714:52 Potassium Comments: [facility] [address]unrf[address]qnca[address] [place], [address](316 K 3.4 mmol/L (Abnormal) Range: 3.5-5.1 62-Xby-96290:10 Basic Metabolic Profile (BMP) Comments: DR AVINA ORDERED: BMP, CBC, MRSADR.NOELLE ORDERED: [facility] [address]pnz[address] [place], [address] GAP 12 (Normal) Range: 5-15 CO2 27.0 mmol/L (Normal) Range: 21.0-32.0 CL 99 mmol/L (Normal) Range: 98-107 K 2.7 mmol/L (Abnormal) Range: 3.5-5.1 Comments: Critical Result(s) Called at: 10:30:38 11/14/2016 by:Aura Ch to [facility] NA 138 mmol/L (Normal) Range: 136-145 CA [...] 126 mg/dLsuggests DIABETES MELLITUS per A.D.A. criteria. 91-Inm-04271:10 CBC-Complete Blood Cnt No Diff Comments: DR AVINA ORDERED: BMP, CBC, MRSADRNIGEL ORDERED: ESTEBAN AVINA ORDERED: BMP, CBC, HANSADRNIGEL ORDERED: [facility] Fcvcsbrxoo8492 [facility] [place], [address] MPV 10.8 fL (Normal) Range: 6.2-12.0 PLT [...] 4.2-5.4 WBC 7.1 K/mm3 (Normal) Range: 4.4-11.0 77-See-98637:10 MRSA/SAID SCREEN Comments: [facility] [address] [place], [address] ; another doc MRSA+SAID SCRN See Note (Normal) Comments: DR AVINA ORDERED: BMP, CBC, MRSA ORDERED: K MRSA/SAID SCRNS. AUREUS S. aureus NegativeMRSA MRSA Negative :09 MAGNESIUM (66132) Comments: PATIENT NOT FASTINGPERFORMED BY: [employer]6370 [facility] [id number] Magnesium, Serum 1.7 mg/dL (Normal) Range: 1.6-2.3 :09 Metabolic Panel, Basic Comments: PATIENT NOT FASTINGPERFORMED BY: AVOS Cloud [facility] Nthnho8950 [facility] [id number] (78567) Calcium, Serum 8.7 mg/dL (Normal) Range: 8.7-10.3 [...] Glucose, Serum 97 mg/dL (Normal) Range: 65-99 77-Vef-453184:45 Urinalysis, Complete Comments: How was Urine Obtained? ACID REMOVER TO [facility]IFY[facility] [address]ikjfq[address] [place], [address] MUCUS, URINE RARE {/hpf} (Normal) BACTERIA RARE [...] (Normal) CLARITY Cloudy (Normal) COLOR Yellow (Normal) 37-Urb-086817:53 CBC W/Diff, Automated Comments: [facility] [address]rm[address] [place], [place], [address] Absolute Lymph 1.08 {X10_3/ul} (Normal) Range: 0.83-4.51 [...] 4.2-5.4 WBC 6.1 K/mm3 (Normal) Range: 4.4-11.0 11-Kgc-333259:53 Comprehensive Metabolic Profil Comments: [facility] [address] [place], [address] GAP 12 (Normal) Range: 5-15 CO2 27.0 [...] per A.D.A. criteria. :53 Lactic Acid Comments: [facility] [address]win[address] [place], [place], [address] LACTIC ACID 2.2 mmol/L (Abnormal) Range: 0.4-2.0 :53 Partial Thromboplast Time Comments: [facility] [address] [place], [address] PTT 32.1 s (Normal) Range: 24.1-36.2 :53 Prothrombin Time w/INR Comments: [facility] [address]mbbr[address] [place], [place], [address] INR 1.0 (Normal) PROTIME 13.2 s (Normal) Range: 11.7-14.9 :54 Basic Metabolic Profile (BMP) Comments: [facility] [address]pi[address] [place], [place], [address] GAP 10 (Normal) Range: 5-15 CO2 29.0 [...] :54 CBC-Complete Blood Cnt No Diff Comments: [facility] [address] [place], [place], [address] MPV 10.1 fL (Normal) Range: 6.2-12.0 PLT [...] (Normal) Range: 4.4-11.0 :54 Hemoglobin A1c Comments: [facility] [address]jl[address] [place], [place], [address] HGB A1C 6.4 % (Abnormal) Range: 4.2-6.3 :54 Liver Profile Comments: [facility] [address] [place], [place], [address] D BILI 0.27 mg/dL (Normal) Range: 0.00-0.30 T BILI 0.80 mg/dL (Normal) Range: 0.20-1.00 ALT 12 U/L (Normal) Range: 12-78 ALK P 82 U/L (Normal) Range: 45-117 AST 10 U/L (Abnormal) Range: 15-37 GLOB 3.5 g/dL (Normal) Range: 2.3-3.5 ALB 3.2 g/dL (Abnormal) Range: 3.4-5.0 T PROT 6.7 g/dL (Normal) Range: 6.4-8.2 :54 MRSA/SAID SCREEN Comments: [facility] [address] [place], [address] MRSA+SAID SCRN See Note (Normal) Comments: MRSA/SAID SCRNS. AUREUS S. aureus NegativeMRSA MRSA Negative :54 Partial Thromboplast Time Comments: [facility] [address] [place], [place], [address] PTT 40.7 s (Abnormal) Range: 24.1-36.2 :54 Prothrombin Time w/INR Comments: [facility] [address] [place], [address] INR 1.1 (Normal) PROTIME 14.3 s (Normal) Range: 11.7-14.9 :55 CBC W/Diff, Automated Comments: [facility] [address] [place], [address] Absolute Lymph 1.18 {X10_3/ul} (Normal) [...] 4.2-5.4 WBC 13.8 K/mm3 (Abnormal) Range: 4.4-11.0 89-Atj-38426:55 Comprehensive Metabolic Profil Comments: [facility] [address] [place], [address] GAP 12 (Normal) Range: 5-15 CO2 24.0 [...] DIABETES MELLITUS per A.D.A. criteria. :22 MAGNESIUM (49714) Comments: PATIENT NOT FASTINGPERFORMED BY: LabAsc[facility]6370 [facility] [id number] Magnesium, Serum 1.5 mg/dL (Abnormal) Range: 1.6-2.3 :22 POTASSIUM SERUM (79271) Comments: PATIENT NOT FASTINGPERFORMED BY: [facility]Asc[facility]6370 [facility] [id number] Potassium, Serum 4.0 mmol/L (Normal) Range: 3.5-5.2 :13 Rapid Flu (07991 x 2) Influenza A Ag negative (Normal) :42 VITAMIN B12 AND FOLATES Comments: PATIENT NOT FASTINGPERFORMED BY: [facility]Asc[facility]6370 [facility] [id number] (78006) Folate (Folic Acid), Serum 18.3 ng/mL (Normal) Comments: A serum folate concentration of less than 3.1 ng/mL isconsidered to represent clinical deficiency. Vitamin B12 650 pg/mL (Normal) Range: 211-946 :42 TSH (04056) Comments: PATIENT NOT FASTINGPERFORMED BY: [facility]Asc[facility]6370 [facility] [id number] TSH 1.610 {uIU/mL} (Normal) Range: 0.450-4.500 84-Vvp-140130:42 Metabolic Panel, Comprehensive Comments: PATIENT NOT FASTINGPERFORMED BY: Contour, LLCAscension Borgess-Pipp Hospital6370 [facility] [id number] (88050) ALT (SGPT) 9 [iU]/L (Normal) Range: 0-32 [...] (Normal) Range: 65-99 :26 HgA1C , Office (77755) HgA1C , Office 6.8 % (Normal) Range: 4.6 - 7.1 :26 Blood Glucose , Office (59807) Blood Glucose , Office 110 (Normal) :10 Culture, Body Fluid Comments: [facility] Ybhralltoc0205 [facility] [place], [address] ; Another doc CUBF See [...] Fluid RBC, WBC AND Comments: LEFT KNEELEFT KNEEWCherrington Hospital Ssqryygbpb4965 [facility] [place], [address] ; another doc Diff PATH [...] (Normal) :30 Crystals, Body Fluid Comments: LEFT [facility] [address] [place], [address] PATH REV Reviewed (Normal) SOURCE/BF SYNOVIAL (Normal) CRYSTALS/BF SEE PATH REV (Normal) :30 Culture, Body Fluid Comments: [facility] [address] [place], [address] CUBF See Note (Normal) Comments: List Antibiotics Last 48 Hours? UNKList Antibiotics to be Started? UNKComments: LEFT KNEEGram StainCentrifuged Specimen? Culture performed on centrifuged specimen Gram Stain 2+ Red Blood Donya ls No White Blood Cells No organisms seen Body Fluid CultNO GROWTH IN 14 DAYS Cult, AnaerobicNo growth in 5 days. :48 CBC W/Diff, Automated Comments: [facility] [address] [place], [address] Absolute Lymph 2.23 {X10_3/ul} (Normal) [...] 4.2-5.4 WBC 7.0 K/mm3 (Normal) Range: 4.4-11.0 7-Kho-134475:48 Comprehensive Metabolic Profil Comments: [facility] [address] [place], [place], [address] GAP 10 (Normal) Range: 5-15 CO2 29.0 [...] 7-18 GLU 99 mg/dL (Normal) Range: 70-110 66-Jja-67939:32 Comprehensive Metabolic Profil Comments: [facility] [address] [place], [address] GAP 8 (Normal) Range: 5-15 CO2 31.0 [...] <126 mg/dLsuggests IMPAIRED HOMEOSTASIS per A.D.A. criteria. 89-Bop-63752:32 Culture, Urine Comments: [facility] Pywkavtgfr6271 [facility] [address] [place], [place], [address] CUUR See Note (Normal) Comments: Urine CultureORGANISM [...] $ <=20 S(NF) indicates non-formulary drug at [facility]. Approval by Infectious Disease Specialist required before non- formulary drugs may be ordered and/or dispensed. 04-Tdv-236376:08 Urinalysis, Complete Comments: How was Urine Obtained? CLEAN [facility] Knwsgiipss5253 [facility] [address] [place], [place], [address] MUCUS, URINE 0 SEEN {/hpf} (Normal) BACTERIA [...] (Normal) COLOR Yellow (Normal) :56 POTASSIUM SERUM (40661) Comments: PATIENT NOT FASTINGPERFORMED BY: CitiusTechSt. Joseph's Wayne HospitalMtdjnq7552 [facility] [id number] Potassium, Serum 4.4 mmol/L (Normal) Range: 3.5-5.2 :56 MAGNESIUM (78164) Comments: PATIENT NOT FASTINGPERFORMED BY: CitiusTechSt. Joseph's Wayne HospitalTftjda9982 [facility] [id number] Magnesium, Serum 1.5 mg/dL (Abnormal) Range: 1.6-2.3 :29 CBC WITH MANUAL DIFF Comments: PATIENT WAS FASTINGPERFORMED BY: CitiusTechSt. Joseph[facility] Wayne HospitalCllgbr7920 [facility] [id number] Information: [id number] (67121) Immature Grans (Abs) 0.0 {x10E3/uL} (Normal) Range: [...] 3.77-5.28 WBC 5.8 {x10E3/uL} (Normal) Range: 3.4-10.8 9-Euk-204393:15 CBC, Platelets & Auto Diff Comments: PATIENT NOT FASTINGPERFORMED BY: [facility] Mgsags5362 [facility] [id number] (03396) Immature Grans (Abs) 0.0 {x10E3/uL} (Normal) Range: [...] 3.77-5.28 WBC 14.0 {x10E3/uL} (Abnormal) Range: 3.4-10.8 0-Irl-836070:15 Metabolic Panel, Comprehensive Comments: PATIENT NOT FASTINGPERFORMED BY: CitiusTechSt. Joseph[facility] Wayne HospitalBslspx2663 [facility] [id number] (83620) ALT (SGPT) 14 [iU]/L (Normal) Range: 0-32 [...] Glucose, Serum 98 mg/dL (Normal) Range: 65-99 28-Qes-137340:28 Metabolic Panel, Comments: PATIENT WAS FASTINGPERFORMED BY: CitiusTechSt. Joseph[facility] Wayne HospitalZlfkqm0865 [facility] [id number] Information: [id number] Comprehensive (14373) ALT (SGPT) 13 [iU]/L (Normal) Range: 0-32 [...] Glucose, Serum 110 mg/dL (Abnormal) Range: 65-99 9-Nmh-[id number]:54 Urinalysis, Office (38262) UA - LEUKOCYTE ESTERASE Trace (Normal) UA - NITRITE Negative (Normal) URINE UROBILINGN JEWELS TIMED Normal mg/dL (Normal) UA - PROTEIN Negative mg/dL (Normal) UA - PH 6 (Abnormal) UA - BLOOD Negative (Normal) UA - SPECIFIC GRAVITY 1.015 (Normal) UA - KETONES Moderate mg/dL (Normal) UA - BILIRUBIN Negative (Normal) UA - GLUCOSE Negative (Normal) 23-Mit-119579:21 Basic Metabolic Profile (BMP) Comments: [facility] [id number] [place], [address] GAP 9 (Normal) Range: 5-15 [...] 200 mg/dLsuggests DIABETES MELLITUS per A.D.A. criteria. 62-Hvq-[id number]:21 CBC W/Diff, Automated Comments: [facility] [id number] [place], [address] Absolute Lymph 3.53 {X10_3/ul} (Normal) [...] 4.2-5.4 WBC 13.8 K/mm3 (Abnormal) Range: 4.4-11.0 75-Dsi-688969:21 Urinalysis, Complete Comments: Order Date: 04/25/16How was Urine Obtained? [facility] [id number] [place], [address] MUCUS, URINE 0 SEEN {/hpf} [...] (Normal) CLARITY Cloudy (Normal) COLOR Yellow (Normal) 97-Qbs-831220:20 Lactic Acid Comments: [facility] [id number] [place], [address] LACTIC ACID 4.8 mmol/L (Abnormal) Range: 0.4-2.0 Comments: Critical Result(s) Called at: 19:26:18 04/25/2016 by:Tiffany Oliva RN :32 CBC W/Diff, Automated Comments: [facility] [id number] [place], [place], [id number] Absolute Lymph 1.94 {X10_3/ul} (Normal) Range: 0.83-4.51 [...] Range: 4.4-11.0 :32 Comprehensive Metabolic Profil Comments: [facility] [address] [place], [address] GAP 9 (Normal) Range: 5-15 [...] 126 mg/dLsuggests DIABETES MELLITUS per A.D.A. criteria. 54-Kpd-544193:01 CBC W/Diff, Automated Comments: [facility] [address] [place], [place], [address] Absolute Lymph 2.12 {X10_3/ul} (Normal) Range: 0.83-4.51 [...] 4.2-5.4 WBC 9.9 K/mm3 (Normal) Range: 4.4-11.0 15-Wbf-490515:01 CRP Comments: [facility] [address] [place], [address] C-REACTIVE PROT < 2.90 mg/L (Normal) Range: 0.0-3.0 Comments: C-Reactive Protein (CRP) provides useful information for thediagnosis, therapy and monitoring of inflammatory processesand associated diseases. For the evaluation of Relative Riskfor Cardiovascular Dise ase, a High Sensitivity CRP (HSCRP)should be ordered. 97-Rxn-220973:01 Erythrocyte Sed Rate Comments: [facility] [address] [place], [place], [address] SED RATE 10 mm/h (Normal) Range: 0-30 46-Bvm-872621:13 CK-MB Quantitative and Index Comments: 'TROP' Serial specimen #1, #2, #3, or #4: 1'CKMB' Serial Specimen #1, #2 or #3? [facility] [address] [place], [place], [address] CKRI 1.5 % (Abnormal) Range: 0.0-1.4 Comments: RELATIVE INDEX >1.5% IS PRESUMPTIVELY POSITIVE CPKMB 1.0 ng/mL (Normal) Range: 0.0-5.0 Comments: CK-MB and RI Interpretation MB Relative Index Non-AMI <or= 5 NA Indeterminate > 5 <or= 4 AMI > 5 > 4 CPK TOTAL 65 U/L (Normal) Range: 26-192 84-Coh-991903:13 Myoglobin, Serum Comments: [facility] (refer to report for specific site)refer to report for address and phone number Myoglobin, Ser 42 ng/mL (Normal) Range: 25-58 Comments: Performed at: [address] [id number] Director: Edil Robertson PhD, Phone: [phone] 08-Usy-236630:13 Troponin-I Comments: 'TROP' Serial specimen #1, #2, #3, or #4: 1'CKMB' Serial Specimen #1, #2 or #3? 1[facility] [address] [place] [address], [address] TROPONIN-I < 0.02 ng/mL (Normal) Comments: TROPONIN-I EXPECTED VALUES <0.05 NEGATIVE 0.06 - 0.59 AT RISK OF GA > OR = 0.60 SUGGEST GA 46-Rjb-399680:19 URINE HANSA CULTURE-JEWELS COL Comments: PATIENT NOT FASTINGPERFORMED BY: [address] [id number] Information: SRC:[facility] [id number] COUNT (81988) Antimicrobial MIHEAD (Normal) Comments: S = Susceptible; [...] mL (Abnormal) Urine Final report Culture,Comprehensive (Abnormal) 28-Via-447071:54 Urinalysis, Office (30441) UA - LEUKOCYTE ESTERASE Small (Normal) UA - NITRITE Positive (Normal) URINE UROBILINGN JEWELS TIMED Normal mg/dL (Normal) UA - PROTEIN Trace mg/dL (Normal) UA - PH 7 (Normal) UA - BLOOD Negative (Normal) UA - SPECIFIC GRAVITY 1.025 (Normal) UA - KETONES Small mg/dL (Normal) UA - BILIRUBIN Small (Normal) UA - GLUCOSE Negative (Normal) 30-Yja-222443:38 Blood Glucose , Office (52145) Blood Glucose , Office 85 (Normal) :38 Basic Metabolic Profile (BMP) Comments: Is Patient Taking Vitamins or Folic Acid Supplements? [facility] [address] [place], [place], [address] GAP 9 (Normal) Range: 5-15 CO2 28.0 [...] Patient Taking Vitamins or Folic Acid Supplements? [facility] [address] [place], [place], [address] FOLATES 13.40 ng/mL (Normal) Range: 3.1-17.5 :38 Vitamin B12 723 pg/mL (Normal) Comments: [facility] [address] [place], [address] Range: 211-911 :32 CBC W/Diff, Automated Comments: [facility] [address] [place], [address] ; ordered by Dr. Colmenares Absolute Lymph [...] Range: 4.4-11.0 :32 Comprehensive Metabolic Profil Comments: [facility] [address] [place], [place], [address] GAP 5 (Normal) Range: 5-15 CO2 31.0 [...] mg/dL (Normal) Range: 70-110 :03 LIPID PANEL (05774) Comments: PATIENT WAS FASTINGPERFORMED BY: CB [facility] Tqdcoq4020 [facility] [id number] BY: BN [facility] [address] [id number] LDL/HDL Ratio 3.2 {ratio_units} (Normal) Range: 0.0-3.2 [...] 1, 25-DIHYDROXY Comments: PATIENT WAS FASTINGPERFORMED BY: [employer]ISnet [facility] [id number] BY: CitiusTechTammy [place] [id number] (98475) Calcitriol(1,25 di-OH Vit D) 51.7 pg/mL (Normal) Range: 19.9-79.3 :03 MICROALBUMIN: CREATININE Comments: PATIENT WAS FASTINGPERFORMED BY: [employer] [facility] [id number] BY: [place]ius[place] [id number] RATIO (37411) AND (11029) Microalb/Creat Ratio 35.5 {mg/g_creat} (Abnormal) Range: 0.0-30.0 Microalbumin, Urine 42.6 ug/mL (Abnormal) Range: 0.0-17.0 Creatinine, Urine 120.0 mg/dL (Normal) Range: 15.0-278.0 :03 METABOLIC PANEL, Comments: PATIENT WAS FASTINGPERFORMED BY: [employer] Bnrvsa7262 [facility] [id number] BY: [employer] [id number] COMPREHENSIVE (56888) ALT (SGPT) 14 [iU]/L (Normal) Range: 0-32 [...] Glucose, Serum 137 mg/dL (Abnormal) Range: 65-99 08-Isb-92718:03 CBC, PLATELETS & AUT DIFF Comments: PATIENT WAS FASTINGPERFORMED BY: CB [facility] Hxkbfw9448 [facility] [id number] BY: [facility] [address] [id number] Information: [id number] (10224) Immature Grans (Abs) 0.0 {x10E3/uL} (Normal) Range: [...] (THYROID STIMULATING Comments: PATIENT WAS FASTINGPERFORMED BY: [employer] [facility] [id number] BY: [employer]Tech[address] [id number] HORMONE) (88396) TSH 3.840 {uIU/mL} (Normal) Range: 0.450-4.500 :03 VITAMIN B12 AND FOLATES Comments: PATIENT WAS FASTINGPERFORMED BY: [employer] [facility] [id number] BY: [employer] [id number] (16802) Folate (Folic Acid), Serum 14.3 ng/mL (Normal) Comments: A serum folate concentration of less than 3.1 ng/mL isconsidered to represent clinical deficiency. Vitamin B12 742 pg/mL (Normal) Range: 211-946 :56 HgA1C , Office (97938) HgA1C , Office 6.8 % (Normal) Range: 4.6 - 7.1 :56 Blood Glucose , Office (53507) Blood Glucose , Office 128 (Normal) :36 CBC W/Diff, Automated Comments: [facility] [address] [place], [place], [address] Absolute Lymph 2.25 {X10_3/ul} (Normal) Range: 0.83-4.51 [...] Range: 4.4-11.0 :36 Comprehensive Metabolic Profil Comments: [facility] [address] [place], [address] GAP 8 (Normal) Range: 5-15 CO2 28.0 [...] 126 mg/dLsuggests DIABETES MELLITUS per A.D.A. criteria. 9-Vic-126242:12 ANTINUCLEAR ANTIBODIES DIRECT Comments: [facility] (refer to report for specific site)refer to report for address and phone number EVERTON-DIRECT Negative (Normal) Comments: Performed at: - [facility] [id number] Director: Edil Robertson PhD, Phone: [phone] 8-Did-184576:12 CBC W/Diff, Automated Comments: [facility] [address] [place], [address] Absolute Lymph 1.93 {X10_3/ul} (Normal) [...] report for address and phone number ANTI-CCP 730503 4 {units} (Normal) Range: 0-19 Comments: Negative <20 Weak positive 20 - 39 Moderate positive 40 - 59 Strong positive >59 :12 Comprehensive Metabolic Profil Comments: [facility] [address] [place], [place], [address] GAP 6 (Normal) Range: 5-15 CO2 33.0 [...] 7-18 GLU 95 mg/dL (Normal) Range: 70-110 4-Afr-467242:12 Hep B Surface Antibodies Comments: [facility] (refer to report for specific site)refer to report for address and phone number Hep B Loi AB Reactive (Normal) Comments: Non Reactive: Inconsistent with immunity, less than 10 mIU/mL Reactive: Consistent with immunity, greater than 9.9 mIU/mL 9-Kpp-598737:12 Hepatitis B Surface Ag Comments: [facility] (refer to report for specific site)refer to report for address and phone number HB SURF AG Negative (Normal) 2-Kxg-223151:12 Hepatitis B Core AB IgM Comments: [facility] (refer to report for specific site)refer to report for address and phone number HB CORE [id number] Negative (Normal) Comments: Performed at: - [facility] [id number] Director: Edil Robertson PhD, Phone: [phone] at: 2Q - [facility] SME0239 [place], [place] [id number] Director: Jared Rodriguez PhD, Phone: [phone] at: - [facility] [id number] Director: Dylan Matthews MD, Phone: [phone] 5-Jcl-747547:12 Hepatitis C Antibodies Comments: [facility] (refer to [...] a more specific supplemental or PCR testing. [facility] offers HCV Ab w/Reflex to Verification test #[id number]. :12 HLA B27 Negative (Normal) Comments: [facility] (refer to report for specific site)refer to report for address and phone number Comments: HLA-B*27 NegativeHLA allele interpretation for all loci based on IMGT/HLAdatabase version 3.15A Labette HealthIA ID Number [id number] test was performed using PCR (Polymerase ChainReaction)/SSOP (Sequence Specific Oligonucleotide Probes)technique. SBT (Sequence Based Typing) and/or SSP(Sequence Specific Primers) may be used as supplementalmethods when necessary. Please contact HLA CustomerService at [phone] if you have any questions. Director of HLA Laboratory Dr Jared Rodriguez, PhD :12 Rheumatoid Factor Comments: [facility] [address] [place], [address] RHEUMATOID FAC < 10.0 {IU/mL} (Normal) 1-Mwq-607679:12 Vitamin D,25 Hydroxy Comments: [facility] [address] [place], [address] Vitamin D 25-OH 50.9 ng/mL (Normal) Comments: Vitamin D 25(OH) Status Range Deficiency <20 ng/mL (50nmol/L) Insuffciency 20 - 30 ng/mL (50 - 75 nmol/L) Sufficiency 30 - 100 ng/mL (75 - 250 nmol/L) Toxicity >100 ng/mL (>250 nmol/L) 09-Oqo-07844:37 LIPID PANEL (89660) Comments: PATIENT WAS FASTINGPERFORMED BY: [facility]At[facility] [id number] LDL/HDL Ratio 2.8 {ratio_units} (Normal) Range: 0.0-3.2 [...] - 169 >19 years 100 - 199 12-Mic-60355:37 CBC, PLATELETS & AUT DIFF Comments: PATIENT WAS FASTINGPERFORMED BY: [employer] LabCoKanocoRcmvdf4946 [facility] [id number] Information: [id number] (99905) Immature Grans (Abs) 0.0 {x10E3/uL} (Normal) Range: [...] B-12 (CYANOCOBALAMIN) Comments: PATIENT WAS FASTINGPERFORMED BY: [employer] Uqedcz8733 [place] [id number] (93989) Vitamin B12 871 pg/mL (Normal) Range: 211-946 :37 Vitamin D Hydroxy (18635) Comments: PATIENT WAS FASTINGPERFORMED BY: [employer] LabBlueheath Holdingsrp Vwguol5564 Doyle [employer] Workflow ManagementDublin [place] [id number] Vitamin D, 25-Hydroxy 69.6 ng/mL (Normal) Range: 30.0-100.0 Comments: Vitamin D deficiency has been defined by the [place] of[place]icine and an Endocrine Society practice guideline as alevel of serum 25-OH vitamin D less than 20 ng/mL (1,2).The Endocrine Society went on to further define vitamin Dinsufficiency as a level between 21 and 29 ng/mL (2).1. IOM ([place] of [employer]). 2010. Dietary reference intakes for calcium and D. [place]: The National Academies Press.2. Delma MF, Mckenna ABDALLA, Dane MACKENZIE, et al. Evaluation, treatment, and prevention of vitamin D deficiency: an Endocrine Society clinical practice guideline. JCEM. 2010; 96(7):1911-30. :37 METABOLIC PANEL, COMPREHENSIVE Comments: PATIENT WAS FASTINGPERFORMED BY: [facility] Iodctf5871 [facility] [id number]; apt. 07-01-15 (75063) ALT (SGPT) 10 [iU]/L (Normal) Range: 0-32 [...] (Abnormal) Range: 65-99 :02 HgA1C , Office (26091) HgA1C , Office 7.1 % (Normal) Range: 4.6 - 7.1 :24 EBV Panel (85317) Comments: PATIENT NOT FASTINGPERFORMED BY: [facility], LLCAscension Borgess[facility]ipp Hospital6370 [facility] [id number] Interpretation: SPRCS (Normal) Comments: EBV Interpretation Chart [...] DIFF WBC Comments: PATIENT NOT FASTINGPERFORMED BY: [facility]6370 [facility] [id number] Information: [id number] (11059) Immature Grans (Abs) 0.0 {x10E3/uL} (Normal) Range: [...] 3.77-5.28 WBC 6.7 {x10E3/uL} (Normal) Range: 3.4-10.8 00-Lss-823331:37 HANSA CULTURE-OTHER (40469) Comments: PATIENT NOT FASTINGPERFORMED BY: CitiusTechPlains Regional Medical CenterKumdxz3795 [facility] [id number] Information: SRC:THRT [id number] Result 1 RRF (Normal) Comments: Routine respiratory vicente Upper Respiratory Culture Final report (Normal) 55-Lib-374336:30 Rapid Strep Test, Office (93615) Rapid Strep Test, Office Negative (Normal) 06-Feb-20159:15 CBC, Platelet, No Differential Comments: PATIENT WAS FASTINGPERFORMED BY: [employer] Oejank9567 [facility] [id number] Platelets 245 {x10E3/uL} (Normal) Range: 150-379 RDW [...] Panel (14) Comments: PATIENT WAS FASTINGPERFORMED BY: LabCoSt. Joseph's Wayne HospitalYawotf8921 [facility] [id number] Information: [id number] ALT (SGPT) 8 [iU]/L (Normal) Range: 0-32 [...] With LDL/HDL Comments: PATIENT WAS FASTINGPERFORMED BY: [employer], LLCAscension [facility] Hospital6370 [facility] [id number] Ratio LDL/HDL Ratio 3.7 {ratio_units} Range: 0.0-3.2 [...] pg/mL (Normal) Comments: PATIENT WAS FASTINGPERFORMED BY: [employer], LLCAscension Borgess[facility] Hospital6370 [facility] [id number] :15 Range: 211-946 Vitamin D, 25-Hydroxy 56.4 ng/mL (Normal) Comments: PATIENT WAS FASTINGPERFORMED BY: [facility]6370 [facility] [id number] :15 Range: 30.0-100.0 Comments: Vitamin D deficiency has been defined by the [place] of[place]icine and an Endocrine Society practice guideline as alevel of serum 25-OH vitamin D less than 20 ng/mL (1,2).The Endocrine Society went on to further define vitamin Dinsufficiency as a level between 21 and 29 ng/mL (2).1. IOM ([place] of [place]). 2010. Dietary reference intakes for calcium and D. [place]: The National Academies Press.2. Mckenna Christie, Dane MACKENZIE, et al. Evaluation, treatment, and prevention of vitamin D deficiency: an Endocrine Society clinical practice guideline. JCEM. 2010; 96(7):1911-30. :33 HgA1C , Office (43721) HgA1C , Office 6.4 % (Normal) Range: 4.6 - 7.1 :27 Potassium Comments: Test performed at:[facility] [address] [place] [address] K 3.5 mmol/L (Normal) Range: 3.5-5.1 :59 Vitamin D Hydroxy (61679) Comments: PATIENT NOT FASTINGPERFORMED BY: Spectral Imagein [place] [id number] Vitamin D, 25-Hydroxy 40.6 ng/mL (Normal) Range: 30.0-100.0 Comments: Vitamin D deficiency has been defined by the [place] of[place]icine and an Endocrine Society practice guideline as alevel of serum 25-OH vitamin D less than 20 ng/mL (1,2).The Endocrine Society went on to further define vitamin Dinsufficiency as a level between 21 and 29 ng/mL (2).1. IOM ([place]). 2010. Dietary reference intakes for calcium and D. [place]: The National Academies Press.2. Delma RIVERA, Mckenna ABDALLA, Dane MACKENZIE, et al. Evaluation, treatment, and prevention of vitamin D deficiency: an Endocrine Society clinical practice guideline. JCEM. 2010; 96(7):1911-. :59 T4, FREE (THYROXINE) Comments: PATIENT NOT FASTINGPERFORMED BY: [employer]70 [place] [id number] Information: [id number] (51118) T4,Free(Direct) 1.22 ng/dL (Normal) Range: 0.82-1.77 :59 T3, FREE (TRIDOTHYRONINE) (10711) Comments: PATIENT NOT FASTINGPERFORMED BY: magnetic.ioDublin [place] [id number] Triiodothyronine,Free,Serum 3.2 pg/mL (Normal) Range: 2.0-4.4 :59 TSH (63805) Comments: PATIENT NOT FASTINGPERFORMED BY: LabAscension [facility] Hospital6370 [facility] [id number] TSH 2.460 {uIU/mL} (Normal) Range: 0.450-4.500 :59 SED RATE ERYTHROCYTE (51550) Comments: PATIENT NOT FASTINGPERFORMED BY: LabAscension [facility] Hospital6370 [facility] [id number] Sedimentation Rate-Westergren 3 mm/h (Normal) Range: 0-40 :59 C-REACTIVE PROTEIN (71566) Comments: PATIENT NOT FASTINGPERFORMED BY: [facility]6370 [facility] [id number] C-Reactive Protein, Quant 2.6 mg/L (Normal) Range: 0.0-4.9 :06 TSH (89002) Comments: PATIENT NOT FASTINGPERFORMED BY: LabAsc[facility]6370 [facility] [id number] TSH 1.920 {uIU/mL} (Normal) Range: 0.450-4.500 :06 CBC with auto diff Comments: PATIENT NOT FASTINGPERFORMED BY: [facility]6370 [facility] [id number] Information: [id number] (66784) Immature Grans (Abs) 0.0 {x10E3/uL} (Normal) Range: [...] 3.77-5.28 WBC 7.9 {x10E3/uL} (Normal) Range: 3.4-10.8 2-Mmz-943926:06 METABOLIC PANEL, COMPREHENSIVE Comments: PATIENT NOT FASTINGPERFORMED BY: LabCoSt. Joseph's Wayne HospitalDntixi4344 [facility] [id number] (23798) ALT (SGPT) 6 [iU]/L (Normal) Range: 0-32 [...] Glucose, Serum 111 mg/dL (Abnormal) Range: 65-99 9-Gxr-985254:09 URINE HANSA CULTURE (JEWELS Comments: PATIENT NOT FASTINGPERFORMED BY: LabCoSt. Joseph's Wayne HospitalOblzlw0015 [facility] [id number] Information: SRC:[facility] [id number] COL COUNT) (04451) Result 1 CNSNSS (Abnormal) Comments: Coagulase negative [...] S Urine Final report Culture,Comprehens (Abnormal) ananth 8-Xqh-643874:54 Urinalysis, Office (27729) UA - LEUKOCYTE ESTERASE Negative (Normal) UA - NITRITE Negative (Normal) URINE UROBILINGN JEWELS TIMED Normal mg/dL (Normal) UA - PROTEIN Negative mg/dL (Normal) UA - PH 6.5 (Normal) UA - BLOOD Negative (Normal) UA - SPECIFIC GRAVITY 1.015 (Normal) UA - KETONES Negative mg/dL (Normal) UA - BILIRUBIN Negative (Normal) UA - GLUCOSE Negative (Normal) 70-Evl-308869:40 Urine Drug Screen (VISTA) Comments: Has pt arrived? YTest performed at:[facility] [address] [place] [address] THC NEGATIVE (Normal) PCP NEGATIVE [...] MUST BE ORDERED SEPARATELY. USE TESTMNEMONIC: UTCA 27-Mmx-048990:25 Acetaminophen (Tylenol) Level Comments: Test performed at:[facility] [address]crynez[address] [place] [address] ACETAMINOPHEN < 2.0 ug/mL (Abnormal) Range: 10.0-30.0 25-Nms-200107:25 Basic Metabolic Profile (BMP) Comments: Test performed at:[facility] [address] [place] [address] GAP 8 (Normal) Range: 5-15 [...] 126 mg/dLsuggests DIABETES MELLITUS per A.D.A. criteria. 79-Zye-483099:25 CBC W/Diff, Automated Comments: Test performed at:[facility] [address]tdpyuru[address] [place], [place] [address] Absolute Lymph 0.55 {X10_3/ul} (Abnormal) Range: 0.83-4.51 [...] 4.2-5.4 WBC 11.3 K/mm3 (Abnormal) Range: 4.4-11.0 36-Ygt-165276:25 Partial Thromboplast Time Comments: Test performed at:[facility] Cztubfbyfi7669 [facility] [place] [address] PTT 31.9 s (Normal) Range: 24.1-36.2 41-Pqv-388234:25 Prothrombin Time w/INR Comments: Test performed at:[facility] [address]fcxvxpyc[address] [place] [address] INR 1.1 (Normal) PROTIME 14.0 s (Normal) Range: 11.7-14.9 :22 Basic Metabolic Profile (BMP) Comments: Test performed at:[facility] Numphxzwbp[address] [place] [address] GAP 8 (Normal) Range: 5-15 CO2 31.0 [...] Blood Cnt No Diff Comments: Test performed at:[facility] [address] [place] [address] MPV 10.0 fL (Normal) Range: 6.2-12.0 [...] Blood Cnt No Diff Comments: Test performed at:[facility] Dstuwoeyqf2532 [facility] [place] [address] MPV 10.4 fL (Normal) Range: [...] Basic Metabolic Profile (BMP) Comments: Test performed at:[facility] Wgjsrvbtnq6769 [facility] [place] [address] GAP 8 (Normal) Range: 5-15 [...] 126 mg/dLsuggests DIABETES MELLITUS per A.D.A. criteria. 64-Rma-77688:52 CBC-Complete Blood Cnt No Diff Comments: Test performed at:[facility] Chdcxaigum6370 [facility] [address] [place], [place] [address] MPV 10.0 fL (Normal) Range: 6.2-12.0 PLT [...] 4.2-5.4 WBC 8.7 K/mm3 (Normal) Range: 4.4-11.0 31-Rot-929003:00 Bedside Glucose Comments: Test performed at:[facility] K[address]kkhojeke6446 [place] [address] BEDSIDE GLU 138 mg/dL (Abnormal) Range: 70-110 Comments: No Action RequiredMANAGEMENT OF PATIENT CARE PER NURSING PROTOCOL 26-Xdz-251866:12 Bedside Glucose Comments: Test performed at:[facility] Tfmozphrtm8039 [place] [address] BEDSIDE GLU 108 mg/dL (Normal) Range: 70-110 Comments: No Action RequiredMANAGEMENT OF PATIENT CARE PER NURSING PROTOCOL 72-Cdm-83623:07 VITAMIN B-12 (CYANOCOBALAMIN) Comments: PATIENT WAS FASTINGPERFORMED BY: [facility] Ljannl5056 [facility] [id number] (16099) Vitamin B12 498 pg/mL (Normal) Range: 211-946 09-Dlg-01257:07 MICROALBUMIN: CREATININE RATIO Comments: PATIENT WAS FASTINGPERFORMED BY: CitiusTechSt. Joseph's Wayne HospitalOwekyh8005 [facility] [id number] (48014) AND (51226) Microalb/Creat Ratio 24.7 {mg/g_creat} (Normal) Range: 0.0-30.0 Microalbumin, Urine 36.2 ug/mL (Abnormal) Range: 0.0-17.0 Creatinine, Urine 146.6 mg/dL (Normal) Range: 15.0-278.0 :07 CBC W/AUTO DIFF WBC Comments: PATIENT WAS FASTINGPERFORMED BY: CitiusTechPlains Regional Medical CenterIlmpij4700 [facility] [id number] Information: [id number] (82849) Immature Grans (Abs) 0.0 {x10E3/uL} (Normal) Range: [...] 7.0 {x10E3/uL} (Normal) Range: 3.4-10.8 :07 TSH (72813) Comments: PATIENT WAS FASTINGPERFORMED BY: CitiusTechSt. Joseph's Wayne HospitalQjujrt2672 [facility] [id number] TSH 4.510 {uIU/mL} (Abnormal) Range: 0.450-4.500 :07 LIPID PANEL (23306) Comments: PATIENT WAS FASTINGPERFORMED BY: LabBlueheath HoldingsSt. Joseph's Wayne HospitalJczzng3455 [facility] [id number] VLDL Cholesterol Peg VLDLCH mg/dL (Normal) Range: [...] PANEL, COMPREHENSIVE Comments: PATIENT WAS FASTINGPERFORMED BY: CitiusTechSt. Joseph's Wayne HospitalAkmono3908 [facility] [id number] (42738) ALT (SGPT) 10 [iU]/L (Normal) Range: 0-32 [...] (Abnormal) Range: 65-99 :22 HgA1C , Office (33885) HgA1C , Office 6.9 % (Normal) Range: [...] Results called on 08/07/14152 by Zohreh THOMPSON ([facility]) [phone]. Comments: Copy of report sent to Infection Control Printer MS#[id number] 08/07/14 9983 [facility]. RESULTS PRINTED MS#[id number] S. AUREUS S. aureus PositiveMRSA MRSA Negative 75-Foi-37154:34 VITAMIN B-12 (CYANOCOBALAMIN) Comments: PATIENT WAS FASTINGPERFORMED BY: [employer], LLCAscension Borgess-[facility]ipp Hospital6370 [facility] [id number] (54890) Vitamin B12 1631 pg/mL (Abnormal) Range: 211-946 :34 CBC W/AUTO DIFF WBC Comments: PATIENT WAS FASTINGPERFORMED BY: LabCoSt. Joseph's Wayne HospitalSfiebq9082 [facility] [id number] Information: [id number] (84321) Immature Grans (Abs) 0.0 {x10E3/uL} (Normal) Range: [...] 3.77-5.28 WBC 4.0 {x10E3/uL} (Normal) Range: 3.4-10.8 55-Jge-42484:34 METABOLIC PANEL, COMPREHENSIVE Comments: PATIENT WAS FASTINGPERFORMED BY: [facility] CenterCoDiana Ville 6830570 [facility] [id number] (15495) ALT (SGPT) 10 [iU]/L (Normal) Range: 0-32 [...] mg/dL (Abnormal) Range: 65-99 :34 LIPID PANEL (43326) Comments: PATIENT WAS FASTINGPERFORMED BY: LabCoSt. Joseph's Wayne HospitalJcpaqw5545 [facility] [id number] LDL/HDL Ratio 3.3 {ratio_units} (Abnormal) Range: 0.0-3.2 [...] Examination Comments: PATIENT WAS FASTINGPERFORMED BY: [facility] Uhungd0849 [facility] [id number] Bacteria None seen (Normal) Epithelial Cells (non renal) 0-10 {/hpf} (Normal) Range: 0 - 10 RBC None seen {/hpf} (Normal) Range: 0 - 2 WBC 0-5 {/hpf} (Normal) Range: 0 - 5 :12 TSH (03034) Comments: PATIENT WAS FASTINGPERFORMED BY: [facility] [id number] [facility] [id number]; non-emergent till apt this week TSH 1.560 {uIU/mL} (Normal) Range: 0.450-4.500 :12 URINALYSIS, W/ MICRO ([id number]) Comments: PATIENT WAS FASTINGPERFORMED BY: [facility] Tmvhuf6934 [facility] [id number] Microscopic Examination See below: (Normal) Comments: Microscopic was indicated and was performed. Microscopic Examination MICRON (Normal) Comments: Microscopic follows if indicated. Nitrite, Urine Negative (Normal) Urobilinogen,Semi-Qn 0.2 mg/dL (Normal) Range: 0.0-1.9 Bilirubin Negative (Normal) Occult Blood Negative (Normal) Ketones Negative (Normal) Glucose Negative (Normal) Protein Trace (Normal) WBC Esterase Negative (Normal) Appearance Clear (Normal) Urine-Color Yellow (Normal) pH 8.0 (Abnormal) Range: 5.0-7.5 Specific Lytle 1.014 (Normal) Range: 1.005-1.030 :12 Vitamin D Hydroxy (18338) Comments: PATIENT WAS FASTINGPERFORMED BY: [facility] Tfeobp2887 [facility] [id number] Vitamin D, 25-Hydroxy 42.2 ng/mL (Normal) Range: 30.0-100.0 Comments: Vitamin D deficiency has been defined by the [place] of[place] and an Endocrine Society practice guideline as alevel of serum 25-OH vitamin D less than 20 ng/mL (1,2).The Endocrine Society went on to further define vitamin Dinsufficiency as a level between 21 and 29 ng/mL (2).1. IOM ([place] of Medicine). 2010. Dietary reference intakes for calcium and D. [place]: The National Academies Press.2. Delma MF, Mckenna ABDALLA, Dane MACKENZIE, et al. Evaluation, treatment, and prevention of vitamin D deficiency: an Endocrine Society clinical practice guideline. JCEM. 2010; 96(7):1911-30. :12 MICROALBUMIN: CREATININE RATIO Comments: PATIENT WAS FASTINGPERFORMED BY: Scour Prevention6370 [facility] [id number] (43808) AND (55409) Microalb/Creat Ratio 4.7 {mg/g_creat} (Normal) Range: 0.0-30.0 Creatinine, Urine 49.4 mg/dL (Normal) Range: 15.0-278.0 Microalbumin, Urine 2.3 ug/mL (Normal) Range: 0.0-17.0 :12 METABOLIC PANEL, Comments: PATIENT WAS FASTINGPERFORMED BY: Smilebox6370 [facility] [id number] Information: [id number] COMPREHENSIVE (06087) ALT (SGPT) 12 [iU]/L (Normal) Range: 0-32 [...] mg/dL (Abnormal) Range: 65-99 :12 LIPID PANEL (91123) Comments: PATIENT WAS FASTINGPERFORMED BY: Spectral ImageAtrium Health [facility] [id number] LDL/HDL Ratio 2.7 {ratio_units} (Normal) Range: 0.0-3.2 [...] B-12 (CYANOCOBALAMIN) Comments: PATIENT WAS FASTINGPERFORMED BY: Spectral ImageAtrium Health [facility] [id number] (27896) Vitamin B12 287 pg/mL (Normal) Range: 211-946 :34 HgA1C , Office (50171) HgA1C , Office 6.3 % (Normal) Range: 4.6 - 7.1 :55 Creatine Kinase Total (24362) Comments: PATIENT NOT FASTINGPERFORMED BY: [employer] Education Evinance InnovationLifeCare Hospitals [facility] [id number] Creatine Kinase,Total,Serum 105 U/L (Normal) Range: 24-173 :55 TSH (69604) Comments: PATIENT NOT FASTINGPERFORMED BY: [employer] Education eMeter [facility] [id number] TSH 1.590 {uIU/mL} (Normal) Range: 0.450-4.500 :55 METABOLIC PANEL, Comments: PATIENT NOT FASTINGPERFORMED BY: CLARITA [facility] Cgspru4342 Vivek [place] [id number] Information: [id number] COMPREHENSIVE (95565) ALT (SGPT) 13 [iU]/L (Normal) Range: 0-32 [...] (Abnormal) Range: 65-99 :33 HgA1C , Office (08546) HgA1C , Office 6.7 % (Normal) Range: 4.6 - 7.1 :46 MICROALBUMIN: CREATININE RATIO Comments: PATIENT WAS FASTINGPERFORMED BY: [employer] Eypqxy7245 [facility] [place] [id number] (18242) AND (76943) Microalb/Creat Ratio 20.0 {mg/g_creat} (Normal) Range: 0.0-30.0 Microalbumin, Urine 21.7 ug/mL (Abnormal) Range: 0.0-17.0 Creatinine, Urine 108.5 mg/dL (Normal) Range: 15.0-278.0 :46 TSH (92364) Comments: PATIENT WAS FASTINGPERFORMED BY: [employer] Slfapu6490 [facility] [place] [id number] TSH 2.670 {uIU/mL} (Normal) Range: 0.450-4.500 :46 Vitamin D Hydroxy (66944) Comments: PATIENT WAS FASTINGPERFORMED BY: [employer] Wrmbyh3435 [facility]bl[facility] [place] [id number] Vitamin D, 25-Hydroxy 42.9 ng/mL (Normal) Range: 30.0-100.0 Comments: Vitamin D deficiency has been defined by the [place] of[place]icine and an Endocrine Society practice guideline as alevel of serum 25-OH vitamin D less than 20 ng/mL (1,2).The Endocrine Society went on to further define vitamin Dinsufficiency as a level between 21 and 29 ng/mL (2).1. IOM ([place] of Medicine). 2010. Dietary reference intakes for calcium and D. [place]: The National Academies Press.2. Delma MF, Mckenna [place], Loree-Werner MACKENZIE, et al. Evaluation, treatment, and prevention of vitamin D deficiency: an Endocrine Society clinical practice guideline. JCEM. 2010; 96(7):1911-30. :46 CBC, PLATELETS & AUT DIFF Comments: PATIENT WAS FASTINGPERFORMED BY: Contour, LLCCox South Nwmanb7628 [facility] [id number] Information: [id number] (42058) Immature Grans (Abs) 0.0 {x10E3/uL} (Normal) Range: [...] 3.77-5.28 WBC 8.7 {x10E3/uL} (Normal) Range: 3.4-10.8 68-Zal-033051:46 VITAMIN B-12 (CYANOCOBALAMIN) Comments: PATIENT WAS FASTINGPERFORMED BY: LabCoSt. Joseph's Wayne HospitalCitnzi0692 [facility] [id number] (55984) Vitamin B12 382 pg/mL (Normal) Range: 211-946 07-Idw-110969:46 METABOLIC PANEL, COMPREHENSIVE Comments: PATIENT WAS FASTINGPERFORMED BY: LabCoSt. Joseph's Wayne HospitalYwbsen5422 [facility] [id number] (38958) ALT (SGPT) 15 [iU]/L (Normal) Range: 0-32 [...] Glucose, Serum 130 mg/dL (Abnormal) Range: 65-99 39-Eop-783306:46 LIPID PANEL (81870) Comments: PATIENT WAS FASTINGPERFORMED BY: LabCoSt. Joseph's Wayne HospitalEdrhbs6441 [facility] [id number] LDL/HDL Ratio 3.4 {ratio_units} (Abnormal) Range: 0.0-3.2 LDL Cholesterol Calc 130 mg/dL (Abnormal) Range: 0-99 VLDL Cholesterol Peg 57 mg/dL (Abnormal) Range: 5-40 HDL Cholesterol 38 mg/dL (Abnormal) Comments: According to ATP-III Guidelines, HDL-C >59 mg/dL is considered anegative risk factor for CHD. Triglycerides 287 mg/dL (Abnormal) Range: 0-149 Cholesterol, Total 225 mg/dL (Abnormal) Range: 100-199 :44 HgA1C , Office (90650) HgA1C , Office 6.6 % (Normal) Range: 4.6 - 7.1 :43 CBC, Platelets & Auto Diff Comments: PATIENT NOT FASTINGPERFORMED BY: LabCoSt. Joseph's Wayne HospitalZrrerr9820 [facility] [id number] Information: [id number] (95460) Immature Grans (Abs) 0.0 {x10E3/uL} (Normal) Range: [...] (Normal) Range: 3.4-10.8 :43 Metabolic Panel, Basic (65267) Comments: PATIENT NOT FASTINGPERFORMED BY: [facility]6370 [facility] [id number] Calcium, Serum 9.4 mg/dL (Normal) Range: 8.6-10.2 [...] mg/dL (Abnormal) Range: 65-99 :10 HANSA CULTURE-OTHER (11473) Comments: PATIENT NOT FASTINGPERFORMED BY: [facility]6370 [facility] [id number] Information: SRC:THRT [id number] Result 1 RFMNR (Normal) Comments: Mixed growth consisting of multiple gram negative rods and routinerespiratory vicente. Upper Respiratory Culture Final report (Normal) :56 Rapid Strep Test, Office (77974) Rapid Strep Test, Office Negative (Normal) :03 Blood Glucose , Office (85736) Blood Glucose , Office 150 (Normal) :14 PPD (69306) Comments: Lot: [id number]: 12/17Amt: 0.1mlRoute: intradermalSite: R FAGiven by: ANGEL Merlos SKIN TEST INTRADERMAL TB negative (Normal) :39 HgA1C , Office (05573) HgA1C , Office 6.4 % (Normal) Range: 4.6 - 7.1 :31 Microscopic Examination Comments: PATIENT WAS FASTINGPERFORMED BY: [employer] Urdpfy2018 [facility] [id number] Bacteria Few (Normal) Mucus Threads Present (Normal) Epithelial Cells (non renal) 0-10 {/hpf} (Normal) Range: 0 - 10 RBC 0-3 {/hpf} (Normal) Range: 0 - 3 WBC 0-5 {/hpf} (Normal) Range: 0 - 5 :31 MICROALBUMIN: CREATININE RATIO Comments: PATIENT WAS FASTINGPERFORMED BY: [employer] Zdnayz3719 [facility] [id number] (19583) AND (64028) Microalb/Creat Ratio 12.6 {mg/g_creat} (Normal) Range: 0.0-30.0 Microalbumin, Urine 9.2 ug/mL (Normal) Range: 0.0-17.0 Creatinine, Urine 73.3 mg/dL (Normal) Range: 15.0-278.0 :31 CBC WITH MANUAL DIFF Comments: PATIENT WAS FASTINGPERFORMED BY: [employer] Sthhhm1502 [facility] [id number] Information: [id number] (63125) Immature Grans (Abs) 0.0 {x10E3/uL} (Normal) Range: [...] PANEL, COMPREHENSIVE Comments: PATIENT WAS FASTINGPERFORMED BY: LabCoSt. Joseph's Wayne HospitalZmuutx9276 [facility] [id number] (21997) ALT (SGPT) 14 [iU]/L (Normal) Range: 0-32 [...] (Abnormal) Range: 65-99 :31 URINALYSIS, W/ MICRO (53685) Comments: PATIENT WAS FASTINGPERFORMED BY: magnetic.ioLifeCare Hospitals of [facility] [place] [id number] Microscopic Examination See below: (Normal) Microscopic Examination MICRON (Normal) Comments: Microscopic follows if indicated. Nitrite, Urine Negative (Normal) Urobilinogen,Semi-Qn 0.2 mg/dL (Normal) Range: 0.0-1.9 Bilirubin Negative (Normal) Occult Blood Negative (Normal) Ketones Negative (Normal) Glucose Negative (Normal) Protein Negative (Normal) Appearance Clear (Normal) Urine-Color Yellow (Normal) WBC Esterase Negative (Normal) pH 8.5 (Abnormal) Range: 5.0-7.5 Specific Lytle 1.018 (Normal) Range: 1.005-1.030 :31 LIPID PANEL (06988) Comments: PATIENT WAS FASTINGPERFORMED BY: ListRunner70 [facility] CenterIconic TherapeuticsAtrium Health [facility] [id number] LDL Cholesterol Calc 75 mg/dL (Normal) Range: [...] B-12 (CYANOCOBALAMIN) Comments: PATIENT WAS FASTINGPERFORMED BY: [employer] [facility] [id number] (64291) Vitamin B12 299 pg/mL (Normal) Range: 211-946 :31 Vitamin D Hydroxy (21075) Comments: PATIENT WAS FASTINGPERFORMED BY: [facility] Akdoxh1762 [facility] [id number] Vitamin D, 25-Hydroxy 31.2 ng/mL (Normal) Range: 30.0-100.0 Comments: Vitamin D deficiency has been defined by the [place] of[place] and an Endocrine Society practice guideline as alevel of serum 25-OH vitamin D less than 20 ng/mL (1,2).The Endocrine Society went on to further define vitamin Dinsufficiency as a level between 21 and 29 ng/mL (2).1. IOM ([place] of [place]). 2010. Dietary reference intakes for calcium and D. [place]: The National Academies Press.2. Delma MF, Mckenna ABDALLA, Dane MACKENZIE, et al. Evaluation, treatment, and prevention of vitamin D deficiency: an Endocrine Society clinical practice guideline. JCEM. 2010; 96(7):1911-30. :31 TSH (83636) Comments: PATIENT WAS FASTINGPERFORMED BY: [facility] Mhfspq5318 [facility] [id number] TSH 4.190 {uIU/mL} (Normal) Range: 0.450-4.500 :15 HgA1C , Office (14461) HgA1C , Office 6.4 % (Normal) Range: 4.6 - 7.1 :15 Blood Glucose , Office (04447) Blood Glucose , Office 141 (Normal) :19 [...] M.D.October 02, 2012 at 9:24 :48 PM [id number] Signed RB/RB If you are the referring physician and would like to consult with theradiologist who provided this interpretation, please contact Mame Mario at [phone]. If this radiologist is unavailable, you will bedirected to another radiologist to assist. If you are a patient with a question regarding this report, pleasecontactyour referring physician hari benítez. Professional Interpretation Provided By: [employer] [place], Phone , These documents contain legally protected [...] on 10/02/122128 Sign by: Keith Crocker DO 58-Bjk-87135:55 Vitamin D Hydroxy (93633) Comments: PATIENT NOT FASTINGPERFORMED BY: LabCoSt. Joseph's Wayne HospitalWmndzc4327 [facility] [id number] Information: [id number] Vitamin D, 25-Hydroxy 39.5 ng/mL (Normal) Range: 30.0-100.0 Comments: Vitamin D deficiency has been defined by the [place] of[place] and an Endocrine Society practice guideline as alevel of serum 25-OH vitamin D less than 20 ng/mL (1,2).The Endocrine Society went on to further define vitamin Dinsufficiency as a level between 21 and 29 ng/mL (2).1. IOM ([place] of Medicine). 2010. Dietary reference intakes for [...] Valenzuela M.D.September 17, 2012 at 9:02:07 AM [id number] Signed GP/GP If you are the referring physician and would like to consult with theradiologist damaso davenport provided this interpretation, please contact Mame Mccoy at [phone]. If this radiologist is unavailable, youwill be directed to another radiologist to assist. If you are a patient wi th a question regarding this report, pleasecontactyour referring physician directly. Professional Interpretation Provided By: [employer] [place], Phone , These documents contain l egally [...] Range: 211-946 7:31 (Normal) Comments: Performed at: [address] [id number] Director: Demarco Mccormack PhD, Phone: [phone] 17-Sep-2012 BID 0.10 mg/dL Range: 0.00-0.30 7:31 (Normal) 80-Wng-95425:31 CBCMD ANC 3.6 3/uL (Normal) Range: 2.0-7.7 [...] IMPAIRED HOMEOSTASIS per A.D.A. criteria. :31 [facility] See Note {CFU/mL} (Normal) Comments: COLONY COUNT [...] Simpson M.D.September 13, 2012 at 2:32:10 PM [id number] Signed DL/DL If you are the referring physician and would like to consult with theradiologist who provided this interpretation, please co ntact Mame Lancaster at [phone]. If this radiologist is unavailable, youwillbe directed to another radiologist to assist. If you are a patient with a question regarding this report, pleasecont actyour referring physician directly. Professional Interpretation Provided By: [employer] [place], Phone , These documents contain legally protected [...] 09/13/12 1437 Sign by: Theo Simpson MD 95-Qmx-99860:36 THYROID Radiology Report See Note (Normal) Comments: [...] Valenzuela M.D.September 13 13 at 2:58:06 PM [id number] Signed GP/GP If you are the referring physician and would like to consult with theradiologist who provided this interpretation, please contact Brown chaidez M.D. at [phone]. If this radiologist is unavailable, youwill be directed to another radiologist to assist. If you are a patient with a question regarding this report, pleasecontactyour refer ring physician directly. Professional Interpretation Provided By: [employer] [place], Phone , These documents contain legally protected [...] Nicolas ARAGON,Florian on 09/13/12 1503 Sign by: Nicolas ARAGON,Florian 94-Tzs-59006:28 CRE Comments: CALL 8665 WITH RESULTSRESULTS CALLED TO DEBBIE 09/13/12 0801 AURA DIAZ.REPORT READ BACK BY SAME . GFR 105 mL/min (Normal) GFRAA 127 mL/min (Normal) CREAT 0.6 mg/dL (Normal) Range: 0.6-1.0 :23 URINE HANSA CULTURE-JEWELS COL Comments: PATIENT NOT FASTINGPERFORMED BY: LabCoSt. Joseph's Wayne HospitalCqnuff9921 [facility] [id number] Information: SRC:UR [id number] COUNT (41866) Result 1 NG36 (Normal) Comments: No growth in 36 - 48 hours. Urine Culture,Comprehensive Final report (Normal) :39 Urinalysis, Office (93783) UA - BILIRUBIN Negative (Normal) UA - BLOOD Non Hemolyzed Trace (Normal) UA - GLUCOSE Negative (Normal) UA - KETONES Negative mg/dL (Normal) UA - LEUKOCYTE ESTERASE Negative (Normal) UA - NITRITE Negative (Normal) UA - PH 6.5 (Normal) UA - PROTEIN Negative mg/dL (Normal) UA - SPECIFIC GRAVITY 1.015 (Normal) URINE UROBILINGN JEWELS TIMED Normal mg/dL (Normal) :35 HgA1C , Office (99160) HgA1C , Office 6.3 % (Normal) Range: 4.6 - 7.1 18-Jcz-31133:35 Blood Glucose , Office (18083) Blood Glucose , Office 143 (Normal) :54 Comp. Metabolic Panel (14) Comments: PATIENT WAS FASTINGPERFORMED BY: CLARITA CitiusTechSt. Joseph's Wayne HospitalWgbybq4446 [facility] [id number] Information: 07/08@830AM 07/09@830AM ALT (SGPT) 11 [iU]/L [...] Creatinine Clearance Comments: PATIENT WAS FASTINGPERFORMED BY: Contour, LLCAscension Borgess-Pipp Hospital6370 [facility] [id number] Creatinine Clearance 70 mL/min (Abnormal) Range: 88-128 Comments: The above range is based on 1.73 square meter average body surfacearea. Creatinine, Ur 24hr 777.0 {mg/24_hr} (Abnormal) Range: 800.0-1800.0 Creatinine, Urine 37.9 mg/dL (Normal) Range: 15.0-278.0 :54 Lipid Panel With LDL/HDL Comments: PATIENT WAS FASTINGPERFORMED BY: [employer] Gplbwk0955 Doyle MWM Media Workflow ManagementLifeCare Hospitals of [facility] [place] [id number] Ratio LDL/HDL Ratio 2.6 {ratio_units} (Normal) Range: [...] Qn, 24-Hr Comments: PATIENT WAS FASTINGPERFORMED BY: [employer] Dpsxqb5889 Doyle [employer] Workflow ManagementLifeCare Hospitals of [facility] [id number] Urine Prot,24hr calculated <30.8 {mg/24_hr} Range: 30.0-150.0 (Normal) Protein,Total,Urine <1.5 mg/dL (Normal) Range: 0.0-15.0 Comments: Verified by repeat analysis TSH 2.550 {uIU/mL} Comments: PATIENT WAS FASTINGPERFORMED BY: [employer] Gkbgjm6717 [facility] [id number] :54 (Normal) Range: 0.450-4.500 Vitamin B12 271 pg/mL (Normal) Comments: PATIENT WAS FASTINGPERFORMED BY: [employer] Rxarsu3448 [facility] [id number] :54 Range: 211-946 :08 CBC WITH MANUAL DIFF Comments: PATIENT NOT FASTINGPERFORMED BY: [employer] Itgkuy2008 Doyle MyMiniLifeAtrium Health [facility] Baptist [id number] Information: [id number] (96863) Immature Grans (Abs) 0.0 {x10E3/uL} (Normal) Range: [...] 3.77-5.28 WBC 4.0 {x10E3/uL} (Normal) Range: 4.0-10.5 9-Qbx-465465:01 FECAL OCCULT- Tubes sent home (52286) FECAL OCCULT HGB ASSAY, QUAL, 1-3 SIMULTANEOU [...] Valenzuela M.D.April 30, 2012 at 8:16:04 AM [phone] Signed GP/GP If you are the referring physician and would like to consult with theradiologist who prov ided this interpretation, please contact Mame Mccoy at [phone]. If this radiologist is unavailable, youwill be directed to another radiologist to assist. If you are a patient with a qu estion regarding this report, pleasecontactyour referring physician directly. Professional Interpretation Provided By: [employer] [place], Phone , These documents contain legally protected [...] by: Nicolas ARAGON,Florian :44 HgA1C , Office (76281) HgA1C , Office 6.3 % (Normal) Range: 4.6 - 7.1 :44 Blood Glucose , Office (38966) Blood Glucose , Office 150 (Normal) Comments: has part of a cinnamon bun for breakfast :52 Microscopic Examination Comments: PATIENT WAS FASTINGPERFORMED BY: LabBlueheath HoldingsSt. Joseph's Wayne HospitalEgylpx7492 [facility] [id number] Bacteria None seen (Normal) Mucus Threads Present (Normal) Epithelial Cells (non renal) 0-10 {/hpf} (Normal) Range: 0 - 10 RBC 0-3 {/hpf} (Normal) Range: 0 - 3 WBC 0-5 {/hpf} (Normal) Range: 0 - 5 :52 CBC WITH MANUAL DIFF Comments: PATIENT WAS FASTINGPERFORMED BY: LabKulara Water6370 [facility] CenterIconic TherapeuticsAtrium Health [facility] Baptist [id number] Information: [id number] (72174) Immature Grans (Abs) 0.0 {x10E3/uL} (Normal) Range: [...] (Normal) Range: 4.0-10.5 :52 URINALYSIS, W/ MICRO (07103) Comments: PATIENT WAS FASTINGPERFORMED BY: [employer] RIISnet [facility] [id number] Microscopic Examination See below: (Normal) Nitrite, Urine Negative (Normal) Urobilinogen,Semi-Qn 1.0 mg/dL (Normal) Range: 0.0-1.9 Bilirubin Negative (Normal) Occult Blood Negative (Normal) Ketones Negative (Normal) Glucose Negative (Normal) Protein 2+ (Abnormal) WBC Esterase Negative (Normal) Appearance Clear (Normal) Urine-Color Yellow (Normal) pH 7.0 (Normal) Range: 5.0-7.5 Specific Lytle 1.029 (Normal) Range: 1.005-1.030 :52 TSH (54040) Comments: PATIENT WAS FASTINGPERFORMED BY: Axilogix EducationSt. Joseph's Wayne HospitalQcwvwv0168 [facility] [id number] TSH 2.060 {uIU/mL} (Normal) Range: 0.450-4.500 :52 METABOLIC PANEL, COMPREHENSIVE Comments: PATIENT WAS FASTINGPERFORMED BY: Axilogix EducationSt. Joseph's Wayne HospitalWvkroo7708 [facility] [id number] (06184) ALT (SGPT) 16 [iU]/L (Normal) Range: 0-40 [...] mg/dL (Abnormal) Range: 65-99 :52 LIPID PANEL (43067) Comments: PATIENT WAS FASTINGPERFORMED BY: Spectral ImageAtrium Health Wake Forest Baptist [id number] LDL/HDL Ratio 2.2 {ratio_units} (Normal) Range: 0.0-3.2 [...] CREATININE RATIO Comments: PATIENT WAS FASTINGPERFORMED BY: ListRunner70 [place] DesignsAtrium Health Wake Forest Baptist [id number] (24400) AND (67707) Microalb/Creat Ratio 822.1 {mg/g_creat} (Abnormal) Range: 0.0-30.0 Microalbumin, Urine 844.3 ug/mL (Abnormal) Range: 0.0-17.0 Creatinine, Urine 102.7 mg/dL (Normal) Range: 15.0-278.0 30-Eqz-055594:18 HgA1C , Office (51075) HgA1C , Office 6.3 % (Normal) Range: 4.6 - 7.1 36-Pma-487372:16 CHEST WITH CONTRAST Radiology Report See Note [...] radiologist regarding this report, please call our 45M2igcyhzu line @ Dictated on 12/14/11 1033 by Nicolas ARAGON,[facility] bed on 12/14/11 1438 by ITS IMPORTSign by Florian Valenzuela MD on 12/14/11 1439 Sign by: Florian Valenzuela MD 05-Dec-20119:19 CBC WITH MANUAL DIFF Comments: PATIENT WAS FASTINGPERFORMED BY: LabCoSt. Joseph's Wayne HospitalUdalve4638 [facility] [id number] Information: [id number] (31039) Immature Grans (Abs) 0.0 {x10E3/uL} (Normal) Range: [...] PANEL, COMPREHENSIVE Comments: PATIENT WAS FASTINGPERFORMED BY: Smilebox6370 [facility] [id number] (75009) ALT (SGPT) 14 [iU]/L (Normal) Range: 0-40 [...] mg/dL (Abnormal) Range: 65-99 :19 LIPID PANEL (57292) Comments: PATIENT WAS FASTINGPERFORMED BY: [employer]70 [facility] [id number]; appt 12-21-11 LDL/HDL Ratio 3.0 {ratio_units} Range: [...] {units} (Normal) Comments: PATIENT NOT FASTINGPERFORMED BY: [employer] Recyclerslin6370 [facility] [id number] BY: CitiusTech[address] [id number] 10:24 Range: 0-19 Comments: Negative <20 Weak positive 20 - 39 Moderate positive 40 - 59 Strong positive >59 8-Nvn-224786:24 EBV Panel (62561) Comments: PATIENT NOT FASTINGPERFORMED BY: [employer] Recyclerslin6370 [facility] [id number] BY: [employer] [address] [id number] Interpretation: SPRCS (Normal) Comments: EBV Interpretation Chart [...] <0.9 Equivocal 0.9 - 1.0 Positive >1.0 2-Nfw-751649:24 SED RATE ERYTHROCYTE Comments: PATIENT NOT FASTINGPERFORMED BY: [place] 3435570 [facility] [id number] BY: [address] [id number] (94223) Sedimentation Rate-Westergren 6 mm/h (Normal) Range: 0-40 9-Jmq-171264:24 C-REACTIVE PROTEIN (17867) Comments: PATIENT NOT FASTINGPERFORMED BY: [place] 3435570 [facility] [id number] BY: [address] [id number] C-Reactive Protein, Quant 2.1 mg/L (Normal) Range: 0.0-4.9 7-Qnj-004999:24 TSH (53148) Comments: PATIENT NOT FASTINGPERFORMED BY: [address] [id number] BY: [address] [id number] TSH 1.610 {uIU/mL} (Normal) Range: 0.450-4.500 5-Cal-698637:24 RHEUMATOID FACTOR-QUANT Comments: PATIENT NOT FASTINGPERFORMED BY: [place] 3435570 [facility] [id number] BY: [address] [id number] (30055) RA Latex Turbid. 8.4 {IU/mL} (Normal) Range: 0.0-13.9 9-Izh-910023:24 [place] (ANTINUCLEAR ANTIBODY) Comments: PATIENT NOT FASTINGPERFORMED BY: [place] 3435570 [facility] [id number] BY: LabCoConnor Ville 316677 [facility] [id number] (30198) [place] Direct Negative (Normal) 5-Zgl-887644:24 CBC WITH MANUAL DIFF Comments: PATIENT NOT FASTINGPERFORMED BY: [facility] Kpxvpn1992 [facility] [id number] BY: LabCo[address] [id number] Inf ormation: [id number] (51140) Immature Grans (Abs) 0.0 {x10E3/uL} (Normal) Range: [...] 3.80-5.10 WBC 4.6 {x10E3/uL} (Normal) Range: 4.0-10.5 9-Lrc-931963:24 METABOLIC PANEL, Comments: PATIENT NOT FASTINGPERFORMED BY: CB [facility] Cgrqpd3140 Vivek NunnFormerly [facility] Healthhadley [place] [id number] BY: BN [facility] Wmmkbvrsqu5628 [facility] [id number]; appt 12-21-11 COMPREHENSIVE (51311) ALT (SGPT) 13 [iU]/L (Normal) Range: 0-40 [...] Glucose, Serum 118 mg/dL (Abnormal) Range: 65-99 9-Bvj-317514:51 HANSA CULTURE-OTHER (01106) Comments: PATIENT NOT FASTINGPERFORMED BY: CLARITA LabCoSt. Joseph's Wayne HospitalKgwunp8705 [facility] [id number] Information: SRC:AIDAN [id number] Result 1 RRF (Normal) Comments: Routine respiratory vicente Upper Respiratory Culture Final report (Normal) 07-Nov-20119:19 Rapid Strep Test, Office (56518) Rapid Strep Test, Office Negative (Normal) 08-Vxm-655777:16 HgA1C , Office (29288) HgA1C , Office 6.1 % (Normal) Range: 4.6 - 7.1 50-Mek-366768:16 Blood Glucose , Office (93535) Blood Glucose , Office 141 (Normal) 21-Awd-757229:10 ABDOMEN/PELVIS WITH CONTRAST Radiology Report See Note [...] 1410 Si gn by: Florian Valenzuela MD 43-Psq-523062:39 CHEST WITH CONTRAST Radiology Report See Note [...] noted, distal end at the level of E5uuzrv. Normal osseous structures. There is limited visualization of the liver, spleen w ithout ademonstratedabnormality. IMPRESSION:No pulmonary embolism. No aortic dissection. Nonspecific two to 3-mmsubtle nodular density at right upper lobe, image 145 probably representatypically atelec tatic change. Dictated on 04/21/11 1104 by Leonard Odell MDranscribed on 04/22/11 1013 by ITS IMPORTSign by Jordan Odell MD on 04/22/11 1014 Sign by: Jordan Odell MD 09-Cer-140484:29 MICROALBUMIN: CREATININE RATIO Comments: PATIENT WAS FASTINGPERFORMED BY: [facility]6[address] [facility] [id number] (07481) AND (99890) Microalb/Creat Ratio 11.8 {mg/g_creat} (Normal) Range: 0.0-30.0 Microalbumin, Urine 7.3 ug/mL (Normal) Range: 0.0-17.0 Creatinine, Urine 61.9 mg/dL (Normal) Range: 15.0-278.0 :29 LIPID PANEL (04367) Comments: PATIENT WAS FASTINGPERFORMED BY: [employer]6370 [facility] [id number]; appt 07/25/11 VLDL Cholesterol Peg VLDLCH mg/dL [...] MANUAL DIFF Comments: PATIENT WAS FASTINGPERFORMED BY: [employer]6370 [facility] [id number] Information: [id number] (00954) Immature Grans (Abs) 0.0 {x10E3/uL} (Normal) Range: [...] 3.80-5.10 WBC 5.7 {x10E3/uL} (Normal) Range: 4.0-10.5 40-Qpf-308952:29 METABOLIC PANEL, COMPREHENSIVE Comments: PATIENT WAS FASTINGPERFORMED BY: LabCoSt. Joseph's Wayne HospitalOqknxl3464 [facility] [id number] (82502) ALT (SGPT) 12 [iU]/L (Normal) Range: 0-40 [...] Glucose, Serum 120 mg/dL (Abnormal) Range: 65-99 16-Mle-17441:46 THYROID Radiology Report See Note (Normal) Comments: [...] on 03/28/11 1149 Sign by: Jose R ARAGON,[facility] :10 CHEST, PA AND LATERAL Radiology Report [...] 1019 Sign by: ___ Florian Valenzuela MD 52-Kwm-53731:47 SOFT TISSUE NECK WITH CONTRAST Radiology Report [...] malformation. Normal bilateral parotid glands. Normal bilateral rd lab technician spaces.Normal bilateral parapharyngeal spaces. Normal bilateral carotid [...] 01/24/11 1017 Sign by: Florian Valenzuela MD 74-Cek-90387:15 CBC WITH MANUAL DIFF Comments: PATIENT WAS FASTINGPERFORMED BY: LabAscension [facility] Hospital6370 [facility] [id number] Information: [id number] (17153) Immature Grans (Abs) 0.0 {x10E3/uL} (Normal) Range: [...] 3.80-5.10 WBC 7.0 {x10E3/uL} (Normal) Range: 4.0-10.5 23-Nke-04161:15 METABOLIC PANEL, COMPREHENSIVE Comments: PATIENT WAS FASTINGPERFORMED BY: LabCoSt. Joseph's Wayne HospitalSauick6153 [facility] [id number] (37872) ALT (SGPT) 10 [iU]/L (Normal) Range: 0-40 [...] mg/dL (Abnormal) Range: 65-99 :15 LIPID PANEL (69449) Comments: PATIENT WAS FASTINGPERFORMED BY: [employer] Recyclerslin6370 [facility] [id number]; has f/u 04/20/11 LDL/HDL Ratio 2.5 {ratio_units} (Normal) Range: 0.0-3.2 LDL Cholesterol Calc 94 mg/dL (Normal) Range: 0-99 VLDL Cholesterol Peg 46 mg/dL (Abnormal) Range: 5-40 HDL Cholesterol 37 mg/dL (Abnormal) Comments: According to ATP-III Guidelines, HDL-C >59 mg/dL is considered anegative risk factor for CHD. Triglycerides 230 mg/dL (Abnormal) Range: 0-149 Cholesterol, Total 177 mg/dL (Normal) Range: 100-199 :15 HgA1C , Office (77327) Comments: PATIENT WAS FASTINGPERFORMED BY: LabTrendy Entertainment Fsmifw4366 [facility] [id number] Glycohemoglobin (GHb), Total 7.7 % (Normal) Comments: Diabetic Adult <9.0 Healthy Adult 3.9 - 7.3 (DCCT/NGSP) Current ADA guide lines recommend a treatment goal of <7.0% HgbA1c for diabetic patients, which corresponds to a <9.0% Glycohemoglobin result with this method. :50 Blood Glucose , Office (56271) Blood Glucose , Office 160 (Normal) :48 [...] = 500 mg/dL :33 HgA1C , Office (18486) HgA1C , Office 6.5 % (Normal) Range: 4.6 - 7.1 :33 Blood Glucose , Office (42519) Blood Glucose , Office 154 (Normal) 23-Uak-122485:11 Influenza A, H1N1, RT PCR Comments: PERFORMED BY: [employer] [id number] BY: [employer] [id number] Information: SRC:NL Subtype Novel H1N1 by Negative (Normal) PCR Type Influenza A by Negative (Normal) PCR Viral FLUABN (Normal) Comments: PERFORMED BY: [employer] [id number] BY: [employer] [id number] Culture,Rapid,Influenz Comments: Negative:No Influenza A or B detected. a :04 Urinalysis, Office (99942) UA - BILIRUBIN Negative (Normal) UA - BLOOD Negative (Normal) UA - GLUCOSE Negative (Normal) UA - KETONES Negative mg/dL (Normal) UA - LEUKOCYTE ESTERASE Negative (Normal) UA - NITRITE Negative (Normal) UA - PH 6.0 (Normal) UA - PROTEIN Negative mg/dL (Normal) UA - SPECIFIC GRAVITY 1.025 (Normal) URINE UROBILINGN JEWELS TIMED Normal mg/dL (Normal) :59 Vitamin D Hydroxy (15312) Comments: PATIENT WAS FASTINGPERFORMED BY: [employer] [id number] Vitamin D, 25-Hydroxy 32.0 ng/mL (Normal) Range: 32.0-100.0 Comments: Recent studies consider the lower limit of 32.0 ng/mL to be athreshold for optimal health.Jose MAYA. J Nutr. 2004;135(2):317-22. 4:59 METABOLIC PANEL, Comments: PATIENT WAS FASTINGPERFORMED BY: LabCoSt. Joseph's Wayne HospitalCasaau5276 [facility] [id number] Information: [id number] COMPREHENSIVE (45803) ALT (SGPT) 9 [iU]/L (Normal) Range: 0-40 [...] mg/dL (Abnormal) Range: 65-99 :59 LIPID PANEL (64478) Comments: PATIENT WAS FASTINGPERFORMED BY: [employer]6370 [facility] [id number] LDL Cholesterol Calc 87 mg/dL (Normal) Range: [...] MANUAL DIFF Comments: PATIENT WAS FASTINGPERFORMED BY: LabKulara Water6370 [facility] [id number] Information: ADD [id number] AND DRAW FEE [id number] (58626) Immature Grans (Abs) 0.0 {x10E3/uL} (Normal) Range: [...] CREATININE RATIO Comments: PATIENT WAS FASTINGPERFORMED BY: [employer] EducationSt. Joseph's Wayne HospitalKfbxkq9601 [facility] [id number] (32862) AND (58860) Creatinine, Urine 87.5 mg/dL (Normal) Range: 15.0-278.0 Microalb/Creat Ratio 4.5 {mg/g_creat} (Normal) Range: 0.0-30.0 Microalbumin, Urine 3.9 ug/mL (Normal) Range: 0.0-17.0 :57 METABOLIC PANEL, COMPREHENSIVE Comments: PATIENT WAS FASTINGPERFORMED BY: CitiusTechSt. Joseph's Wayne HospitalLbmzwf2374 [facility] [id number] (21520) ALT (SGPT) 12 [iU]/L (Normal) Range: 0-40 [...] mg/dL (Abnormal) Range: 65-99 :57 LIPID PANEL (52632) Comments: PATIENT WAS FASTINGPERFORMED BY: [employer] Vjinwh4761 [facility] [id number] LDL Cholesterol Calc 138 mg/dL (Abnormal) Range: 0-99 LDL/HDL Ratio 2.9 {ratio_units} (Normal) Range: 0.0-3.2 HDL Cholesterol 47 mg/dL (Normal) Comments: According to ATP-III Guidelines, HDL-C >59 mg/dL is considered anegative risk factor for CHD. VLDL Cholesterol Peg 29 mg/dL (Normal) Range: 5-40 Cholesterol, Total 214 mg/dL (Abnormal) Range: 100-199 Triglycerides 147 mg/dL (Normal) Range: 0-149 :05 HgA1C , Office (91013) HgA1C , Office 6.5 % (Normal) Range: 4.6 - 7.1 :05 Blood Glucose , Office (04509) Blood Glucose , Office 140 (Normal) :35 MICROALBUMIN: CREATININE RATIO Comments: PATIENT WAS FASTINGPERFORMED BY: LabCoSt. Joseph's Wayne HospitalFwfiws5758 [facility] [id number] (38891) AND (95080) Creatinine, Urine 94.9 mg/dL (Normal) Range: 15.0-278.0 Microalb/Creat Ratio 10.7 {mg/g_creat} (Normal) Range: 0.0-30.0 Microalbumin, Urine 10.2 ug/mL (Normal) Range: 0.0-17.0 :35 CBC WITH MANUAL DIFF Comments: PATIENT WAS FASTINGPERFORMED BY: [employer], LLCCoSt. Joseph's Wayne HospitalHdsgwx3116 [facility] [id number] Information: [id number] (43016) Baso (Absolute) 0.0 {x10E3/uL} (Normal) Range: 0.0-0.2 [...] PANEL, COMPREHENSIVE Comments: PATIENT WAS FASTINGPERFORMED BY: LabCoSt. Joseph's Wayne HospitalEpykjh5425 [facility] [id number] (73674) ALT (SGPT) 12 [iU]/L (Normal) Range: 0-40 [...] mg/dL (Abnormal) Range: 65-99 :35 LIPID PANEL (04385) Comments: PATIENT WAS FASTINGPERFORMED BY: [facility] Lkhrzt3901 [address] [place] [id number] LDL Cholesterol Calc 103 mg/dL (Abnormal) Range: 0-99 LDL/HDL Ratio 3.0 {ratio_units} (Normal) Range: 0.0-3.2 HDL Cholesterol 34 mg/dL (Abnormal) Comments: According to ATP-III Guidelines, HDL-C >59 mg/dL is considered anegative risk factor for CHD. VLDL Cholesterol Peg 38 mg/dL (Normal) Range: 5-40 Cholesterol, Total 175 mg/dL (Normal) Range: 100-199 Triglycerides 190 mg/dL (Abnormal) Range: 0-149 :31 HgA1C , Office (03214) HgA1C , Office 6.2 % (Normal) Range: 4.6 - 7.1 :31 Blood Glucose , Office (79170) Blood Glucose , Office 113 (Normal) :03 BILAT SCRN DIGITAL & CAD Radiology Report See Note (Normal) Comments: Exam Number: [id number] MAMMOGRAPHY - BILATERAL SCREENING INDICATION:Routine annual screening [...] of attaching a ResultCode to this exam.ADDENDUM: [id number] HPBI/MDS Reported By: BRIAN JIMENEZ M.D. :02 DEXA BONE DENSITY STUDY () Radiology Report See Note (Normal) Comments: Exam Number: [id number] CLINICAL:Assess bone density EXAMINATION:DUAL ENERGY X-RAY ABSORPTIOMETRY / DEXA. TECHNIQUE:Bone Density Measurements (BMD) of left hip and left forearm wereobtained using a [employer] dual energy scanner. COMPARISON:A report from 2001 [...] NIH Osteoporosis and Related Bone Diseases http://www.osteo.org2. Physical Director ational Society for Clinical Densitometryhttp://www.iscd.org3. National Osteoporosis Foundation http://www.nof.org Reported By: NELLY LINCOLN M.D. :11 HgA1C , Office (17140) HgA1C , Office 6.2 % (Normal) Range: 4.6 - 7.1 :11 Blood Glucose , Office (65947) Blood Glucose , Office 186 (Normal) :25 TSH (29500) Comments: PATIENT WAS FASTINGPERFORMED BY: LabCo Irzoct6161 [facility] [id number] TSH 2.340 {uIU/mL} (Normal) Range: 0.450-4.500 :25 METABOLIC PANEL, COMPREHENSIVE Comments: PATIENT WAS FASTINGPERFORMED BY: LabCo Kvervu3063 [facility] [id number] (12646) ALT (SGPT) 10 [iU]/L (Normal) Range: 0-40 [...] MANUAL DIFF Comments: PATIENT WAS FASTINGPERFORMED BY: LabAscension Borgess-Pipp Hospital6370 [facility] [id number] Information: ADD DRAW FEE [id number] AND J0 1522 (33174) Baso (Absolute) 0.0 {x10E3/uL} (Normal) Range: 0.0-0.2 [...] {x10E3/uL} (Normal) Range: 4.0-10.5 :25 LIPID PANEL (34417) Comments: PATIENT WAS FASTINGPERFORMED BY: [facility]6370 [facility] [id number] LDL/HDL Ratio 2.6 {ratio_units} (Normal) Range: 0.0-3.2 Cholesterol, Total 183 mg/dL (Normal) Range: 100-199 HDL Cholesterol 34 mg/dL (Abnormal) Comments: According to ATP-III Guidelines, HDL-C >59 mg/dL is considered anegative risk factor for CHD. LDL Cholesterol Calc 90 mg/dL (Normal) Range: 0-99 Triglycerides 295 mg/dL (Abnormal) Range: 0-149 VLDL Cholesterol Peg 59 mg/dL (Abnormal) Range: 5-40 :02 HgA1C , Office (97342) HgA1C , Office 6.2 % (Normal) Range: 4.6 - 7.1 :02 Blood Glucose , Office (33253) Blood Glucose , Office 152 (Normal) :02 HEPATIC FUNCTION PANEL Comments: PATIENT WAS FASTINGPERFORMED BY: CitiusTechSt. Joseph's Wayne HospitalWypwye2221 [facility] [id number] (78361) Alkaline Phosphatase, S 63 [iU]/L (Normal) Range: 25-165 ALT (SGPT) 13 [iU]/L (Normal) Range: 0-40 AST (SGOT) 14 [iU]/L (Normal) Range: 0-40 Bilirubin, Direct 0.10 mg/dL (Normal) Range: 0.00-0.40 Bilirubin, Total 0.4 mg/dL (Normal) Range: 0.1-1.2 Albumin, Serum 4.6 g/dL (Normal) Range: 3.6-4.8 Protein, Total, Serum 7.0 g/dL (Normal) Range: 6.0-8.5 :02 LIPID PANEL (34225) Comments: PATIENT WAS FASTINGPERFORMED BY: [facility]6370 [facility] [id number] LDL Cholesterol Calc 114 mg/dL (Abnormal) Range: 0-99 LDL/HDL Ratio 3.6 {ratio_units} (Abnormal) Range: 0.0-3.2 HDL Cholesterol 32 mg/dL (Abnormal) Comments: According to ATP-III Guidelines, HDL-C >59 mg/dL is considered anegative risk factor for CHD. Triglycerides 319 mg/dL (Abnormal) Range: 0-149 VLDL Cholesterol Peg 64 mg/dL (Abnormal) Range: 5-40 Cholesterol, Total 210 mg/dL (Abnormal) Range: 100-199 :45 HgA1C , Office (68886) HgA1C , Office 6.2 % (Normal) Range: 4.6 - 7.1 :45 Blood Glucose , Office (14125) Blood Glucose , Office 193 (Normal) :34 MICROALBUMIN: CREATININE RATIO Comments: PATIENT WAS FASTINGPERFORMED BY: CLARITA Craft Coffeelin6370 [facility] [id number] (34231) AND (14896) Creatinine, Urine 126.3 mg/dL (Normal) Range: 15.0-278.0 Microalb/Creat Ratio 7.6 {mg/g_creat} (Normal) Range: 0.0-30.0 Microalbumin, Urine 9.6 ug/mL (Normal) Range: 0.0-17.0 :34 METABOLIC PANEL, COMPREHENSIVE Comments: PATIENT WAS FASTINGClinical Information: ADD [id number] CC:3302PERFORMED BY: [employer]6370 [facility] [id number] (78035) A/G Ratio 1.7 (Normal) Range: 1.1-2.5 Albumin, [...] FUNCTION PANEL Comments: PATIENT WAS FASTINGPERFORMED BY: [employer] LabKulara Water6370 [facility] [id number] (29350) Bilirubin, Direct 0.08 mg/dL (Normal) Range: 0.00-0.40 :34 LIPID PANEL (22030) Comments: PATIENT WAS FASTINGPERFORMED BY: [employer] LabBlueheath HoldingsSt. Joseph's Wayne HospitalOkwvjp4634 [facility] [id number] Cholesterol, Total 186 mg/dL (Normal) Range: 100-199 HDL Cholesterol 38 mg/dL (Abnormal) Comments: According to ATP-III Guidelines, HDL-C >59 mg/dL is considered anegative risk factor for CHD. LDL Cholesterol Calc 102 mg/dL (Abnormal) Range: 0-99 LDL/HDL Ratio 2.7 {ratio_units} (Normal) Range: 0.0-3.2 Triglycerides 232 mg/dL (Abnormal) Range: 0-149 VLDL Cholesterol Peg 46 mg/dL (Abnormal) Range: 5-40 64-Ntq-394284:36 HgA1C , Office (60012) HgA1C , Office 6.3 % (Normal) Range: 4.6 - 7.1 07-Pho-037800:36 Blood Glucose , Office (40261) Blood Glucose , Office 129 (Normal) 7-Vpb-888588:12 BILAT SCRN DIGITAL & CAD Radiology Report See Note (Normal) Comments: Exam Number: [id number] MAMMOGRAM, BILATERAL SCREENING DIGITAL AND CAD HISTORY: [...] 1992 (MQSA). The mammograms werealso examined w [employer] computer-aided detection software (ImageStemCyte, ChangeAgain.Me, ChemistDirect.). Reported By: BRIAN JIMENEZ M.D. 49-Jsg-143868:57 HgA1C , Office (12235) HgA1C , Office 6.3 % (Normal) Range: 4.6 - 7.1 86-Way-511454:57 Blood Glucose , Office (84563) Blood Glucose , Office 111 (Normal) :40 [...] for patient's is the eGFRmultiplied by 1.212. [facility] Laboratory uses the abbreviated Modification of [...] Disease W/O Kidney Disease>/= 90 Stage One Iihbbd55 - 89 Stage Two Suspect Decreased GFR30 [...] (Normal) Range: 5-40 :30 HgA1C , Office (27590) HgA1C , Office 6.2 % (Normal) Range: 4.6 - 7.1 :30 Blood Glucose , Office (22679) Blood Glucose , Office 167 (Normal) :33 [...] (Normal) Range: 211-911 :51 HgA1C , Office (48914) HgA1C , Office 5.9 % (Normal) Range: 4.6 - 7.1 83-Zzp-087776:51 Blood Glucose , Office (11379) Blood Glucose , Office 113 (Normal) :49 [...] >240 mg/dL High Risk :01 Urinalysis, Office (69683) UA - BILIRUBIN Negative (Normal) UA - [...] Comments: GLU,2HPPG 75gm GLUC PPG GLUP from 0603:U20300V. 70-Rvp-505515:44 CHEST, PA AND LATERAL Radiology Report See Note (Normal) Comments: Exam Number: [id number] PA AND LATERAL CHEST HISTORY Being done for chest pain. FINDINGSCardiac configuration is upper limits of normal to mildly enlarged.There is mild elevation, left hemid iaphragm. No acute infiltrate,effusion, or pneumothorax is identified. There is moderate spurformation noted in the lower dorsal spine. IMPRESSION1. A number of chronic changes.2. No acute infiltrate. Reported By: CADE MERCER M.D. 01-Qzz-048313:20 URINE HANSA CULTURE-IDENTIFICATN Comments: PATIENT NOT FASTINGClinical Information: ADD [id number] PERFORMED BY: LabCoSt. Joseph's Wayne HospitalEbwccn5748 [facility] [id number] (67105) Antimicrobial MARY (Normal) Comments: S = Susceptible; [...] mL (Normal) Urine Final report Culture,Comprehensive (Normal) 87-Qmz-13084:00 CBC With Differential/Platelet Comments: PATIENT NOT FASTINGPERFORMED BY: [facility] Zhslcl2943 [facility] [id number] Baso (Absolute) 0.1 {x10E3/uL} (Normal) Range: 0.0-0.2 [...] 11.7-15.0 WBC 6.0 {x10E3/uL} (Normal) Range: 4.0-10.5 60-Ezd-17781:00 Comp. Metabolic Panel (14) Comments: PATIENT NOT FASTINGPERFORMED BY: [facility] Zzagqt8828 [facility] [id number] A/G Ratio 1.7 (Normal) Range: 1.1-2.5 Albumin, [...] Serum 116 mg/dL (Abnormal) Range: 65-99 If -Somali >60 mL/min (Normal) Range: 60-128 Comments: Note: [...] (Normal) Range: 0.34-4.82 :33 HgA1C , Office (46929) HgA1C , Office 5.2 % (Normal) Range: 4.6 - 7.1 :33 Blood Glucose , Office (71507) Blood Glucose , Office 172 (Normal) :08 FEMUR,2 VIEWS Radiology Report See Note (Normal) Comments: Exam Number: [id number] AP AND LATERAL LEFT TIBIA/FIBULA. HISTORYBeing done [...] Report See Note (Normal) Comments: Exam Number: [id number] AP AND LATERAL LEFT TIBIA/FIBULA. HISTORYBeing done [...] (Normal) Range: 0.34-4.82 :53 HgA1C , Office (23544) Comments: done-[facility] HgA1C , Office 5.3 % (Normal) Range: 4.6 - 7.1 :53 Blood Glucose , Office (65265) Comments: done-[facility] Blood Glucose , Office 94 (Normal) [...] Range: 6.4-8.2 :18 Blood Glucose , Office (41155) Blood Glucose , Office 5.6 (Normal) :18 HgA1C , Office (89598) HgA1C , Office 142 % (Abnormal) Range: [...] Range: 6.4-8.2 :05 COMPLETE UA Comments: COMMENTS: [facility] [address] DR Webster*: NOT APPLICABLE BACTERIA 0 [...] :00 AMIE 25 U/L (Normal) Comments: COMMENTS: [facility] DR Webster*: NOT APPLICABLE Range: 25-115 :00 CBCD Comments: COMMENTS: [facility] DR Webster*: NOT APPLICABLE BASO% 0.1 % [...] 11.6-14.6 WBC 5.3 K/mm3 (Normal) Range: 4.4-11.0 95-Zum-988125:00 COMP METABOLIC Comments: COMMENTS: BED 7 DR [...] T PROT 8.0 g/dL (Normal) Range: 6.4-8.2 58-Hkq-213924:00 D BILI 0.14 mg/dL (Normal) Comments: COMMENTS: [...] mg/dL VLDL 50 mg/dL (Abnormal) Range: 5-40 8-Hya-596938:02 URINALYSIS (01357) URINALYSIS Comments: uNABLE TO PUT RESULTS IN CORRECTLY- XUWQUFV-AVQPCWIMBMXU-WVRVTZURDWT-NEGS.G.-1.559OAQDP-PVPWQNJIQR-4.1RXWDXVV-HLGSVAPTHIO-5.4CZVICGGE-KBJVUEMPRDRGTIIJLH-FDQUI (Normal) :09 HgA1C , Office (39395) HgA1C , Office 5.4 % (Normal) Range: 4.6 - 7.1 :09 Blood Glucose , Office (99144) Blood Glucose , Office 161 (Normal) Plan [...] II, controlled, with no complications 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 : Reviewed Audio Production Engineer Letter 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 Mixed hyperlipidemia : Cholesterol mgmt Indication: [...] B12 shots montly Indication: Macrocytosis 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 : Reviewed Audio Production Engineer Letter 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 : Continue Current Prescription(s) 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 Diabetes mellitus type 2, uncontrolled, without [...] Pulmonary hypertension, moderate to severe : Reviewed Audio Production Engineer Letter Indication: Pulmonary hypertension, moderate to severe [...] S/P laminectomy with spinal fusion : Reviewed Audio Production Engineer Letter Indication: S/P laminectomy with spinal fusion Macrocytosis without anemia : Reviewed Lab Indication: Macrocytosis without anemia Diabetes mellitus type II, controlled, with no complications : Reviewed Diagnostic Tests Indication: Diabetes mellitus type II, controlled, with no complications S/P laminectomy with spinal fusion : Reviewed Audio Production Engineer Letter Indication: S/P laminectomy with spinal fusion [...] pneumonia) CAP (community acquired pneumonia) : Reviewed Audio Production Engineer Letter Indication: CAP (community acquired pneumonia) Sinusitis, bacterial : Eprescribed prescriptions (G8553) Indication: Sinusitis, bacterial Pulmonary hypertension, moderate to severe : Reviewed Diagnostic Tests Indication: Pulmonary hypertension, moderate to severe Nonsmoker : Eprescribed prescriptions (G8553) Indication: Nonsmoker Bronchitis : Reviewed Diagnostic Tests Indication: Bronchitis Bronchitis : Reviewed Audio Production Engineer Letter Indication: Bronchitis Bronchitis : *Antibiotic Usage [...] : FOLLOW UP IN 3 DAYS with [facility] Indication: EDEMA, NOS Benign paroxysmal positional vertigo : Reviewed Audio Production Engineer Letter Indication: Benign paroxysmal positional vertigo Acute [...] MONTHS Indication: Mixed hyperlipidemia Planned Observations TSH (81560)Indication: Diabetes mellitus type 2, uncontrolled, without complications On: 42 Request URINALYSIS, W/ MICRO (69690)Indication: Diabetes mellitus type 2, uncontrolled, without complications On: :42 Request MICROALBUMIN: CREATININE RATIO (50622) AND (87557)Indication: Diabetes mellitus type 2, uncontrolled, without complications On: :42 Request METABOLIC PANEL, COMPREHENSIVE (86343)Indication: Hypertensive heart disease without heart failure On: 8-Vvf-273449:42 Request LIPID PANEL (80882)Indication: Mixed hyperlipidemia On: :42 Request CBC W/AUTO DIFF WBC (13921)Indication: Hypertensive heart disease without heart failure On: 4-Qgb-915118:42 Request LIPID PANEL (07252)Indication: Diabetes mellitus type 2, uncontrolled, without complications On: 2-Acs-078716:25 Request CBC WITH MANUAL DIFF (01027)Indication: Elevated platelet count On: :11 Request LIPASE (85217)Indication: Flu-like symptoms On: 3-Yfq-965463:53 Request Comments: stat POTASSIUM SERUM (54039)Indication: Hypokalemia On: :40 Request MAGNESIUM (78228)Indication: Hypomagnesemia On: 49-Ban-002042:40 Request Renal function Panel (36017)Indication: Hypokalemia On: 94-Kqy-510687:48 Request POTASSIUM SERUM (47343)Indication: Hypokalemia (Renamed from Decreased potassium in the blood) On: 03-Nov-20169:06 Request POTASSIUM SERUM (71490)Indication: Hypokalemia (Renamed from Decreased potassium in the blood) On: 69-Odq-986399:55 Request POTASSIUM SERUM (95682)Indication: Hypokalemia On: 0-Ijv-450999:22 Request MAGNESIUM (66284)Indication: Hypokalemia On: 8-Eqw-864619:21 Request URINE HANSA CULTURE-JEWELS COL COUNT (45081)Indication: UTI (urinary tract infection), bacterial On: :54 Request MAGNESIUM (14690)Indication: Abdominal pain On: 97-Fxn-072853:45 Request Comments: do in 3 weeks CALCIFEDIOL (14255)Indication: Vitamin D deficiency On: 97-Xkk-744026:14 Request LIPID PANEL (17128)Indication: Mixed hyperlipidemia On: 14-Lni-335705:13 Request VITAMIN B12 AND FOLATES (63985)Indication: B12 deficiency anemia On: 76-Wxz-742251:13 Request TSH (THYROID STIMULATING HORMONE) (96037)Indication: Thyroid Nodule On: :13 Request METABOLIC PANEL, COMPREHENSIVE (42617)Indication: Mixed hyperlipidemia On: :13 Request CBC WITH MANUAL DIFF (93478)Indication: Hypertensive heart disease without heart failure On: 36-Pqy-585830:13 Request MICROALBUMIN: CREATININE RATIO (02755) AND (74845)Indication: Hypertensive heart disease without heart failure On: 80-Apo-570858:13 Request MYOGLOBIN (40671)Indication: Sweating abnormality On: 59-Uzd-567719:11 Request CPK MB FRACTION (53337)Indication: Sweating abnormality On: 10-Svc-455533:11 Request ASSAY, TROPONIN, QUANTITATIVE (aka Troponin I) ([id number])Indication: Sweating abnormality On: 09-Ums-520043:11 Request METABOLIC PANEL, BASIC (05356)Indication: Hypokalemia (Renamed from Decreased potassium in the blood) On: 27-Ktm-805089:16 Request PARATHORMONE (86025)Indication: Hypocalcemia On: 21-Xtm-208499:23 Request Magnesium (70540)Indication: Hypokalemia (Renamed from Decreased potassium in the blood) On: 93-Zoj-914821:22 Request CALCIUM, IONIZED (11154)Indication: Hypocalcemia On: 11-Hza-342338:21 Request VITAMIN B12 AND FOLATES (79044)Indication: Macrocytosis without anemia On: 71-Fqm-175035:39 Request SMEAR+INTERP FLUOR STAIN (01086)Indication: Macrocytosis without anemia On: 47-Fef-091740:37 Request MICROALBUMIN: CREATININE RATIO (33759) AND ([id number])Indication: Hypertensive heart disease without heart failure On: 69-Hae-942059:16 Request CBC W/AUTO DIFF WBC (74681)Indication: Hypertensive heart disease without heart failure On: 35-Mry-326542:16 Request METABOLIC PANEL, COMPREHENSIVE (40218)Indication: Hypertensive heart disease without heart failure On: 71-Pik-526182:16 Request LIPID PANEL (45583)Indication: Mixed hyperlipidemia On: 61-Enl-921670:16 Request Vitamin D Hydroxy (35193)Indication: Vitamin D deficiency On: 63-Hlz-368404:15 Request VITAMIN B-12 (CYANOCOBALAMIN) (12194)Indication: B12 deficiency anemia On: 71-Yok-146055:15 Request METABOLIC PANEL, COMPREHENSIVE (26484)Indication: Fatigue On: :07 Request LIPID PANEL (73000)Indication: Mixed hyperlipidemia On: :07 Request VITAMIN B-12 (CYANOCOBALAMIN) (12555)Indication: B12 deficiency anemia On: :07 Request CBC (AUTO) (32158)Indication: B12 deficiency anemia On: :07 Request Vitamin D Hydroxy (49240)Indication: Vitamin D deficiency On: :06 Request HgA1C , Office (46181)Indication: Diabetes mellitus type II, controlled, with no complications On: :55 Request CBC, PLATELETS & MANUAL DIFF (00325)Indication: Hypokalemia (Renamed from Decreased potassium in the blood) On: :08 Request Comments: recheck before 11-07-14 MICROALBUMIN: CREATININE RATIO (20025) AND (80126)Indication: Proteinuria On: :49 Request VITAMIN B-12 (CYANOCOBALAMIN) (68127)Indication: B12 deficiency anemia On: :56 Request Vitamin D Hydroxy (21461)Indication: Vitamin D deficiency On: :56 Request CBC WITH MANUAL DIFF ([id number])Indication: B12 deficiency anemia On: :55 Request METABOLIC PANEL, COMPREHENSIVE (07533)Indication: Hypertensive heart disease without heart failure On: :55 Request LIPID PANEL (33993)Indication: Mixed hyperlipidemia On: :55 Request LIPID PANEL (56323)Indication: Mixed hyperlipidemia On: :31 Request TSH ([id number])Indication: Thyroid Nodule On: :31 Request MICROALBUMIN: CREATININE RATIO (76656) AND ([id number])Indication: Diabetes mellitus type II, controlled, with no complications On: :31 Request METABOLIC PANEL, COMPREHENSIVE (13472)Indication: Diabetes mellitus type II, controlled, with no complications On: :31 Request URINALYSIS, W/ MICRO (72490)Indication: Proteinuria On: :30 Request Vitamin D Hydroxy (94195)Indication: Vitamin D deficiency On: :30 Request CBC, PLATELETS & AUT DIFF ([id number])Indication: B12 deficiency anemia On: :29 Request VITAMIN B-12 (CYANOCOBALAMIN) ([id number])Indication: B12 deficiency anemia On: :29 Request HgA1C , Office (47012)Indication: Diabetes mellitus type II, controlled, with no complications On: :03 Request TSH ([id number])Indication: Thyroid Nodule On: :39 Request LIPID PANEL (50929)Indication: Mixed hyperlipidemia On: :38 Request CBC WITH MANUAL DIFF ([id number])Indication: Diabetes mellitus type II, controlled, with no complications On: :38 Request METABOLIC PANEL, COMPREHENSIVE (01620)Indication: Diabetes mellitus type II, controlled, with no complications On: :38 Request Vitamin D Hydroxy (30827)Indication: Vitamin D deficiency On: :22 Request CBC, PLATELETS & AUT DIFF ([id number])Indication: B12 deficiency anemia On: 61-Qjd-75768:22 Request VITAMIN B-12 (CYANOCOBALAMIN) (77242)Indication: B12 deficiency anemia On: :22 Request CBC WITH MANUAL DIFF ([id number])Indication: Diabetes mellitus type II, controlled, with no complications On: :12 Request METABOLIC PANEL, COMPREHENSIVE (53244)Indication: Diabetes mellitus type II, controlled, with no complications On: 94-Utj-51309:12 Request HEPATIC FUNCTION PANEL (05088)Indication: Mixed hyperlipidemia On: 10-Wkv-09004:10 Request LIPID PANEL (04269)Indication: Mixed hyperlipidemia On: 03-Rol-89813:10 Request VITAMIN B-12 (CYANOCOBALAMIN) (49461)Indication: B12 deficiency anemia On: 90-Pxe-82003:02 Request TSH ([id number])Indication: Dysthymic disorder On: 04-Mru-414140:17 Request CREATININE CLEARANCE (39653)Indication: Proteinuria On: 15-Lxr-005759:15 Request 24 hour urine for Protein ([id number])Indication: Proteinuria On: 00-Bno-879869:15 Request VITAMIN B-12 (CYANOCOBALAMIN) (48726)Indication: B12 deficiency anemia On: 97-Fqx-785236:15 Request CCP ANTIBODY ([id number])Indication: Pain in unspecified joint On: 07-Nov-20119:47 Request LIPID PANEL ([id number])Indication: Mixed hyperlipidemia On: 98-Tfe-926566:45 Request OVA & PARASITE DIR SMEAR ([id number])Indication: Diarrhea On: :52 Request LEUKOCYTE COUNT, FECAL (30214)Indication: Diarrhea On: :52 Request Clostridium difficile Toxin A+B, EIA ([id number])Indication: Diarrhea On: :52 Request HANSA CULTURE-STOOL ([id number])Indication: Diarrhea On: :52 Request CBC WITH MANUAL DIFF ([id number])Indication: Hypertensive heart disease without heart failure On: 88-Sqi-792132:11 Request METABOLIC PANEL, COMPREHENSIVE ([id number])Indication: Hypertensive heart disease without heart failure On: 23-Yun-196283:11 Request LIPID PANEL ([id number])Indication: Mixed hyperlipidemia On: 57-Jnt-190785:11 Request Influenza B Ag (01051)Indication: Myalgia and myositis On: 43-Bsx-59121:06 Request Influenza A Ag (27641)Indication: Myalgia and myositis On: 92-Ztr-18215:06 Request METABOLIC PANEL, COMPREHENSIVE (11818)Indication: Uncomplicated herpes simplex On: 31-Byd-241160:13 Request MICROALBUMIN: CREATININE RATIO ([id number]) AND ([id number])Indication: Abnormal glucose tolerance test On: :32 Request METABOLIC PANEL, COMPREHENSIVE (71284)Indication: Hypertensive heart disease without heart failure On: :32 Request HEPATIC FUNCTION PANEL (29919)Indication: Mixed hyperlipidemia On: :31 Request LIPID PANEL (11027)Indication: Mixed hyperlipidemia On: :31 Request TSH ([id number])Indication: Abnormal glucose tolerance test On: 77-Tqb-200320:19 Request LIPID PANEL (69356)Indication: Mixed hyperlipidemia On: 73-Odi-789211:15 Request HEPATIC FUNCTION PANEL (78374)Indication: Mixed hyperlipidemia On: 33-Tdf-193589:15 Request METABOLIC PANEL, COMPREHENSIVE (57749)Indication: Hypertensive heart disease without heart failure On: :56 Request HEPATIC FUNCTION PANEL ([id number])Indication: Mixed hyperlipidemia On: :56 Request LIPID PANEL (29611)Indication: Mixed hyperlipidemia On: :56 Request MICROALBUMIN: CREATININE RATIO (12920) AND ([id number])Indication: Abnormal glucose tolerance test On: :30 Request CBC WITH MANUAL DIFF ([id number])Indication: Abnormal glucose tolerance test On: :30 Request VITAMIN B-12 (CYANOCOBALAMIN) ([id number])Indication: Tinnitus, unspecified laterality On: :24 Request METABOLIC PANEL, COMPREHENSIVE ([id number])Indication: Hypertensive heart disease without heart failure On: :24 Request LIPID PANEL ([id number])Indication: Mixed hyperlipidemia On: :24 Request URINALYSIS W/O MICRO (62573)Indication: Hypertensive heart disease without heart failure On: :12 Request TSH ([id number])Indication: Hypertensive heart disease without heart failure On: 17-Rij-615240:12 Request CBC WITH MANUAL DIFF ([id number])Indication: Hypertensive heart disease without heart failure On: 35-Tbt-062094:12 Request METABOLIC PANEL, COMPREHENSIVE (13661)Indication: Hypertensive heart disease without heart failure On: :12 Request LIPID PANEL (58754)Indication: Mixed hyperlipidemia On: 80-Eml-714412:12 Request CBC with manual diff ([id number])Indication: Pre-operative examination On: :30 Request Metabolic Panel, Comprehensive (31815)Indication: Pre-operative examination On: 34-Yus-441426:30 Request Urinalysis, Office (39140)Indication: Pre-operative examination On: 38-Exy-956374:29 Request Lipid Panel (98662)Indication: Mixed hyperlipidemia On: :52 Request Comments: in three months (approximately) TSH (31059)Indication: Hypertensive heart disease without heart failure On: :52 Request MICROALBUMIN URINE QUANT ([id number])Indication: Hypertensive heart disease without heart failure On: :52 Request METABOLIC PANEL, COMPREHENSIVE (30697)Indication: Hypertensive heart disease without heart failure On: :52 Request CBC WITH MANUAL DIFF ([id number])Indication: Hypertensive heart disease without heart failure On: :52 Request HEPATIC FUNCTION PANEL (17563)Indication: Mixed hyperlipidemia On: :52 Request LIPID PANEL (46985)Indication: Mixed hyperlipidemia On: :52 Request HEPATIC FUNCTION PANEL (92901)Indication: Mixed hyperlipidemia On: :54 Request LIPID PANEL (94453)Indication: Mixed hyperlipidemia On: :54 Request TSH ([id number])Indication: pruritis On: :37 Request METABOLIC PANEL, COMPREHENSIVE (07945)Indication: pruritis On: :37 Request CBC WITH MANUAL DIFF ([id number])Indication: pruritis On: :37 Request LIPID PANEL ([id number])Indication: Mixed hyperlipidemia On: :18 Request HEPATIC FUNCTION PANEL ([id number])Indication: Mixed hyperlipidemia On: :18 Request HEPATIC FUNCTION PANEL (33305)Indication: Mixed hyperlipidemia On: :14 Request LIPID PANEL ([id number])Indication: Mixed hyperlipidemia On: 8-Sbj-019932:14 Request Comments: 2mos Planned Encounters Medical; 3 Month FU - On: 24-Aug-2018 7:00 [facility] Margarita Drake DO, DO, Kathleen Planned Procedures ELECTROCARDIOGRAM, COMPLETE (ECG) On: 23-May-2018 Intent (46283)By: Margarita Drake DO Comments: sinus favio no acute chg Margarita GALARZA B 12 Injection, 1000 mcg (J3420)By: On: 23-May-2018 Intent Margarita Drake DO, DO, Comments: b12 1,000mcg/ml 1ml given L deltoid lot#[id number] exp: dino Margarita B 12 Injection, 1000 mcg (J3420)By: On: 26-Mar-2018 Intent Marlyn Roberts LPN Comments: [id number] dltdIMas INSECTICIDE SUPERVISOR B 12 Injection, 1000 mcg (J3420)By: On: 19-Feb-2018 Intent Margarita Drake DO, DO, Comments: vitamin b12 1000mcg injectionlot: [id number]: 06/2019L DELT IMpt tolerated well Margarita B 12 Injection, 1000 mcg (J3420)By: On: 07-Dec-2017 Intent Noelle GALARZA Margarita Drake , Comments: 1 ml given lt arm lot [id number] exp 01/20 Margarita B 12 Injection, 1000 mcg (J3420)By: On: 10-Nov-2017 Intent Margarita Drake DO, DO, Margarita CHEST XRAY, PA & LATERAL ([id number])By: On: 26-Sep-2017 Intent Allyn Manley Aerosol Treatment (25429)By: Khanh On: 13-Sep-2017 Intent Ann Marie MCDANIEL Aerosol Treatment ([id number])By: Vineet, On: 07-Sep-2017 Intent Allyn Comments: Lungs clear after aerosol treatment. B 12 Injection, 1000 mcg (J3420)By: On: 15-Aug-2017 Intent Margarita Drake DO Noelle DO, Comments: vitamin b12 1000mcg injectionlot: [id number]: 10/2018L DELT IMpt tolerated wellAD INSECTICIDE SUPERVISOR Margarita INFUSION, NORMAL SALINE SOLUTION , On: 10-Aug-2017 Intent 1000 CC (Special Coverage Instructions Apply. See MCM: 2048) (J7030)By: Libby Mai DO Toradol Injection, 30 mg (J1885)By: On: 09-Aug-2017 Intent Libby Mai DO Comments: toradol 30mg IV push -per dr. mailot: [id number]: 11/2017IV push in 23g in R ACpt tolerated well. AD INSECTICIDE SUPERVISOR INFUSION, NORMAL SALINE SOLUTION , On: 09-Aug-2017 Intent 1000 CC (Special Coverage Comments: 23g inserted to R AC per first attemptpt tolerated [id number] NS infusing Instructions Apply. See MCM: 2048) (J7030)By: Stefanie Ghosh XR RIB AND CHEST LEFT ([id number])By: Sergei On: 09-Aug-2017 Libby Zavala DO Comments: stat call wet read fall with left anterior inferior rib pain/sob B 12 Injection, 1000 mcg (J3420)By: On: 03-Aug-2017 Intent Visit, Nurse Comments: given - see flowsheet Dose-prefilled syringeRIGHT DLTD, IMgiven by:CIARA JarrellNVIS signed B 12 Injection, 1000 mcg (J3420)By: On: 01-Aug-2017 Intent Margarita Drake DO, DO, Comments: vitamin b12 1000mcg injectionlot: [id number]: 10/2018L DELT IMpt tolerated wellAD INSECTICIDE SUPERVISOR Margarita B 12 Injection, 1000 mcg (J3420)By: On: 26-Jul-2017 Intent Margarita Drake DO, DO, Comments: vitamin b12 1000mcg injectionlot: [id number]: 10/2018L DELT IMpt tolerated wellAD INSECTICIDE SUPERVISOR Margarita INTENSIVE BEHAVIORAL THERAPY TO On: 25-Jul-2017 Intent REDUCE CARDIOVASCULAR DISEASE RISK, INDIVIDUAL, VCMI-RN-JPCP, ANNUAL, 15 MINUTES ([id number])By: Margarita Drake DO, DO, Kathleen SCREENING DIGITAL TOMOSYNTHESIS OF On: 25-Jul-2017 Intent BREAST ([id number])By: Margarita Drake DO, DO Margarita B 12 Injection, 1000 mcg (J3420)By: On: 25-Jul-2017 Intent Margarita Drake DO, DO, Comments: vitamin b12 1000mcg injectionlot: [id number]: 10/2018L DELT IMpt tolerated wellAD INSECTICIDE SUPERVISOR Margarita Rocephon Injection, 1 Gm ([id number])By: On: 13-Mar-2017 Intent Libby Mai DO Radiology - Finger(s) - RightBy: Sergei On: 13-Mar-2017 Libby Zavala DO Comments: second finger rule out osteo Aerosol Treatment (20521)By: Noelle On: 23-Sep-2016 Margarita Zavala DO, DO, Kathleen Comments: albulterol .83%more a/e but more noise- inspir and expir wheeze and junky Bone Density StudyBy: Davian Mccray MD On: 12-Nov-2015 Intent MAMMOGRAM, SCREENING, BOTH BREAST On: 12-Nov-2015 Intent ([id number])By: Davian Mccray MD CT - Chest (Without Contrast)By: Shazia On: 05-Nov-2015 Intent Davian ARAGON Comments: low dose DEXA SCAN AXIAL SKELETON (42230)By: On: 29-Oct-2015 Intent Shazia ARAGON, Davian Ultrasound - ThyroidBy: Shazia ARAGON, On: 29-Oct-2015 Intent Davian BILATERAL MAMMOGRAMS (89670)By: Shazia On: 29-Oct-2015 Intent Davian ARAGON B [...] MAMMOGRAM, SCREENING, BOTH BREAST On: 07-Nov-2014 Intent ([id number])By: Libby Mai DO A B 12 Injection, 1000 mcg (J3420)By: On: 07-Nov-2014 Intent Sergei GALARZA Libby A Comments: lot: [id number]: 06/19Dose: 1,000 mcgSite: l dltdLocation; IMby: B 12 Injection, 1000 mcg (J3420)By: On: 08-Oct-2014 Intent Sergei DO Libby A Comments: Lot:[id number]:05/20Dose:1mlRoute:IMSite:l armGiven By:RAMÓN signed BILATERAL MAMMOGRAMS ([id number])By: Sergei On: 08-Aug-2014 Intent Helga GALARZAa A INJECTION, VITAMIN B-12 On: 23-Jun-2014 Intent CYANOCOBALAMIN, UP TO 1000 MCG Comments: lot [id number] 03/19location L armroute imgiven by - msmithVIS [...] On: 21-Mar-2014 Intent HERMANN (Ankle Brachial Index) (58900)By: On: 10-Feb-2014 Intent Fast DO, Lbiby A B 12 Injection, 1000 mcg (J3420)By: On: 11-Dec-2013 Intent Fast DO, Libby A Comments: Edgar dltd, [id number] flowsheetMegan CT - ChestBy: Fast DO, Libby A On: 11-Dec-2013 Intent Eprescribed prescriptions (G8553)By: On: 11-Dec-2013 Intent Fast DO, Libby A B 12 Injection, 1000 mcg (J3420)By: On: 30-Oct-2013 Intent Fast DO, Libby A Comments: lot: [id number]: 07/19site/route: L del/IMamt: 1mLVIS signed when applicableChelsea, WINE AND SPIRITS CLERK Eprescribed prescriptions ([id number])By: On: 09-Sep-2013 Intent Rachel Leyva ELECTROCARDIOGRAM, COMPLETE (ECG) On: 27-Aug-2013 Intent (03084)By: Ann Marie Cassidy CNP SPECIMEN HNDLNG/TRNSPRT, OFFC > LAB On: 18-Jun-2013 Intent ([id number])By: Ann Marie Cassidy CNP MAMMOGRAM, SCREENING, BOTH BREASTS On: 04-Jun-2013 Intent ([id number])By: Fast DO Libby A DXA, BONE DENSITY, AXIAL SKELETON On: 04-Jun-2013 Intent (58776)By: Fast DO Libby A CT - ChestBy: [...] MAMMOGRAM, SCREENING, BOTH BREASTS On: 01-Feb-2013 Intent ([id number])By: Sergei GALARZA Libby A Comments: end april CT - ChestBy: Fast DO Libby A On: 01-Feb-2013 Intent Comments: march or april B 12 Injection, 1000 mcg (J3420)By: On: 01-Feb-2013 Intent Sergei DO Libby A Eprescribed prescriptions ([id number])By: On: 01-Feb-2013 Intent Rachel Leyva B 12 Injection, 1000 mcg (J3420)By: On: 30-Oct-2012 Intent Rachel Leyva Comments: Lot:Exp:08/17Lot:[id number]:1mlRoute:imSite:L deltoidGiven by:BMY DXA, BONE DENSITY, AXIAL SKELETON On: 30-Oct-2012 Intent (40636)By: Helga Mai DOa A Eprescribed prescriptions ([id number])By: On: 30-Oct-2012 Intent Rachel Leyva Nuclear Medicine - ThyroidBy: Noelle On: 24-Sep-2012 Intent , Margarita Noelle DO, Margarita Esophagram with 13 mmm tabletBy: On: 06-Sep-2012 Intent Noelle DO, Margarita Noelle DO, Margarita Eprescribed prescriptions ([id number])By: On: 06-Sep-2012 Intent Allyn Prajapati LPN B 12 Injection, 1000 mcg (J3420)By: On: 30-Jul-2012 Intent Helga Mai DOa A Comments: Lot #:[id number] date: mount given: 1mlRoute: IMSite given: left deltoidGiven by: KADY Rehman CT - ChestBy: Helga Mai DOa A On: 30-Jul-2012 Intent Ultrasound - ThyroidBy: Fast DO, On: 30-Jul-2012 Intent Libby A Eprescribed prescriptions ([id number])By: On: 30-Jul-2012 Intent Rachel Leyva Eprescribed prescriptions ([id number])By: On: 05-Jul-2012 Intent Allyn Prajapati LPN MAMMOGRAM, SCREENING, BOTH BREASTS On: 23-Apr-2012 Intent ([id number])By: Libby Mai DO CT - Chest (IV Contrast Needed)By: On: 21-Nov-2011 Intent Libby Mai DO Comments: thi is a follow up CT for abnormal ct chest in april 2011 TDAP VACCINE >7 IM (54330)By: On: 25-Jul-2011 Intent Rachel Leyva Comments: Lot:[id number]:07/21/13Amt:prefilledRoute:IMSite:left deltGiven By: ANGEL Anthony CT - Abdomen & PelvisBy: Sergei GALARZA, On: 25-Jul-2011 Intent Libby Ballard Comments: stat call wet read FLU VAC, SPLIT, >3 YEARS, INTRAMUSC On: 25-Jul-2011 Intent ([id number])By: Rachel Leyva Comments: pt refuses CT - ChestBy: Libby Mai DO On: 20-Apr-2011 Intent Comments: pe protocol Ultrasound - ThyroidBy: Sergei GAALRZA, On: 04-Apr-2011 Intent Libby Ballard Comments: to be done in 6 months Spirometry (73194)By: Libby Mai DO On: 16-Mar-2011 Intent A Comments: good effort and curve normal Pulse Oximetry (37889)By: Sergei GALARZA, On: 16-Mar-2011 Intent Libby Ballard Comments: 97% EKG (17752)By: Libby Mai DO On: 16-Mar-2011 Intent Comments: [...] MAMMOGRAM, SCREENING, BOTH BREASTS On: 17-Jan-2011 Intent (87850)By: Libby Mai DO Pulse Oximetry (87807)By: Khanh MCDANIEL, On: 14-Jun-2010 Intent Reema Aerosol Treatment (70776)By: Khanh On: 14-Jun-2010 Intent Ann Marie MCDANIEL DXA, BONE DENSITY, AXIAL SKELETON On: 23-Dec-2009 Intent (36175)By: Libby Mai DO MAMMOGRAM, SCREENING, BOTH BREASTS On: 23-Dec-2009 Intent (71853)By: Libby Mai DO A EKG (58509)By: Rachel Leyva On: 23-Dec-2009 Intent Comments: ekg- 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 no change normal axis MAMMOGRAM, SCREENING, BOTH BREASTS On: 25-Nov-2008 Intent (90036)By: Libby Mai DO EKG (86657)By: Libby Mai DO On: 25-Nov-2008 Intent Comments: ekg showed normal sinus with no lateral t wave inversioon and poor rwave progression- twave inversion anteriolry unchanged Spirometry (09792)By: Libby Mai DO On: 25-Nov-2008 Intent A Radiology - Chest- PA and LatBy: Sergei On: 25-Nov-2008 Intent Libby GALARZA Pulse Oximetry (48716)By: Sergei GALARZA, On: 25-Nov-2008 Intent Libby Ballard Bio Z (78452)By: Libby Mai DO On: 14-May-2008 Intent Comments: [...] On: 09-Oct-2006 Intent Libby GALARZA Bio Z (92070)By: Libby Mai DO On: 09-Oct-2006 Intent Comments: high svr and low normal cardiac output- so will add in [facility] Planned Medications INFUSION, NORMAL SALINE SOLUTION [...] Injection Solution Ordered: 11-Dec-2013 Pending Fast DO, Ilbby A Vitamin B-12 1000 MCG/ML Injection Solution [...] without anemia Hypomagnesemia : DISCONTINUED - MAGNESIUM (39107) Indication: Hypomagnesemia Macrocytosis without anemia : DISCONTINUED - METABOLIC PANEL, BASIC (33703) Indication: Macrocytosis without anemia Nonsmoker : How [...] Mixed hyperlipidemia : DISCONTINUED - LIPID PANEL (98674) Indication: Mixed hyperlipidemia Mixed hyperlipidemia : DISCONTINUED - METABOLIC PANEL, COMPREHENSIVE (32943) Indication: Mixed hyperlipidemia Mixed hyperlipidemia : DISCONTINUED - LIPID PANEL (80298) Indication: Mixed hyperlipidemia Diabetes mellitus type 2, uncontrolled, without complications : DISCONTINUED - METABOLIC PANEL, COMPREHENSIVE (85056) Indication: Diabetes mellitus type 2, uncontrolled, without [...] Advance Directives Name Dates Details Immunization Registry [place] - Effective on Effective: 25-Jul-201707/25/2017. Expiration date [...] failure, Vitamin D deficiency (268.9), 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 [facility] Office Visit On: [...] severe, Vitamin D deficiency (268.9), 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 [facility] Office Visit On: [...] bronc hitis, post viral cough-given z-pack and dteraptjvh-Boqbe-raity not feeling good- fatigue, fever, chills, high [...] The patient does have durable power of patent prosecution attorney and living will. The patient has noticed nothing from the geriatic depression scale. Other providers contributing to the patient's care are home health lpn, gastrologist and hims manager. Encounter Diagnosis: BMI 26.0-26.9,adult, Hypomagnesemia, Nonsmoker, Pulmonary [...] issues sent to Transitional care unit at [place]. Saw Dr. Greene in trasitional care, had [...] for xofran.Told it was colitis. Admitted to [facility] and had monitoring then cath found 25% [place] cardio myopthy, placed on carvediolol 6.25mg Recently went to [facility] seen after Nonstemi, and low EF [...] is transitioning into care from a hospital ([facility] 10/23 to 10/27 pneumonia) and a [...] - Reason for hospitalization note: (was in [facility] er sun for bronchitis I used [...] The patient does have durable power of patent prosecution attorney and living will. The patient has noticed lack of energy. Other providers contributing to the patient's care are commuter pilot and other: (eye exam - 1 year [...] the fatigue is because traveling alot for [employer] and up late and trial coming upEncounter [...] shot- and she hasnt been back to [facility]- us reviewed and told her [...] evaluation: Surgery is with Dr. Yepez in [place]- [phone] and fax- [phone]- had stimulator removed- then had mri of [...] pressure (and trying to use hands or air hammer operator anything). There is no radiation. Associated symptoms [...] bp high and said becuase son in [place] [facility], [ADDITIONAL REASON] Follow up, Laboratory Test Results [...] poorly. Patient has been compliant with instructions. [facility] End: 09-Aug-2006 12:15 nt medication use: no [...] better- couldnt get insurance to pay for Ne[employer]- [employer] works for her- thinks she needs to [...]
--- OUTSIDE RECORDS SUMMARY | 2018-10-01 09:19 | XMS RPT_ITS | Continuity of Care Document ---
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) Status: Active Elevated platelet count (R79.89, 790.6) Status: Active Encounter for annual general medical examination with abnormal findings in adult (Z00.01, V70.0) Status: Active Encounter for screening for malignant neoplasm of colon (Renamed from Special screening for malignant neoplasms, colon) (Z12.11, V76.51) Comments: last scope 03/20 [facility] Status: Active Encounter for screening mammogram [...] d ay (can buy a pedometer at [employer]), -5 days of week of 30 mins [...] 10-Apr-2018 Active VITAMIN C & E COMBINATION, [id number] (Oral Capsule) 1 (one) Capsule Capsule qd [...] : 09-Apr-2018 Inactive Comments:Sixty script given to kcvcvixC88.0 AUGMENTIN, 875-125MG (Oral Tablet) 1 Tablet bid [...] : 28-Jan-2016 End : 07-Feb-2016 Inactive NYSTATIN, 876206LUFV/GM (External Cream) apply Cream bid to affected [...] Start : 25-Oct-2007 Inactive VITAMIN D (ERGOCALCIFEROL), 72115QCPF (Oral Capsule) 1 Capsule q weekly for [...] Quantity: 10 {Vial} Refills: 3 Ordered:02-Sep-2016 Slarb PARTNER, Marlyn Start : 21-Mar-2014 End : 02-Sep-2016 [...] Quantity: 4 {Tablet} Refills: 0 Ordered:07-Oct-2016 Slarb PARTNER, Marlyn Start : 23-Sep-2016 End : 07-Oct-2016 [...] Quantity: 30 {Tablet} Refills: 3 Ordered:05-Jun-2009 Rachel Levya Start : 05-Jun-2009 End : 23-Dec-2009 Discontinued [...] physical examination (Z01.818, V72.83) Comments: ekg at [facility] with records from recent hospitalization Status: [...] (R06.02, 786.05) Comments: See referral letter from [facility] REspiratory scanned document Dr Munguia [...] and Obrych, surgical decompression /fusion c3-c6- 2013- [facility] Completed Date Value Details 07-May-2018 Discharge Instruction Result: Comments: See Note; NOTES: [facility] Medical Records Department [address] [place] [address] Discharge Instruction 05/07/18 0931 MR#: [id number] Acct: [id number] Name: Radha MAHARAJ Rep #: [id number] : 1945 72 From: Parminder Blanco MD [...] Department Summary Result: Comments: See Note; NOTES: [facility] Medical Records Department [address] [place] [address] Emergency Department Summary 05/07/18 0838 MR#: [id number] Acct: [id number] Name: MAR MAHARAJ Rep #: [id number] : 1945 72 From: Parminder Blanco MD PCP: Margarita Drake DO Status: DEP ER - ER Visit Summary Date of Service: 05/07/18 Chief Complaint: Nausea, vomiting and diarrhea History of Present Illness: The patient is a 72 F has a past medical history of valvular heart disease, hypertension, cholesterol spinal stenosis and multiple surgeries. Patient states she zoran t to [place] [employer] game on Monday. And she developed nausea [...] Dehydration This note was ge nerated with [employer] dictation software. It may contain incorrect words, spelling, and punctuation that were not noted in review of the chart prior to signing ED Disposition - Plan for ED Patient: Chi ef Complaint: General Illness Referrals: Margarita rDake, DO [Primary Care Provider] - What to do if you have Problems For any increased pain, shortness of breath, bleeding, nausea or vomiting, ches t pain, or any unexpected problems, contact your Primary Care Provider. Call [facility] ([phone]) or report to the closest Emergency Room. Call 911 if necessary. 05/07/18 1545 <Elec tronically signed by Parminder Blanco MD> Date Parminder Blanco MD Cosigner Signature (If Indicated): Date CC: Margarita Drake DO 22-Feb-2018 Downtime Report Result: Comments: See Note; NOTES: [facility] Medical Records Department [address] [place] [address] Downtime Report MR#: [id number] Acct: [id number] Name: MAR MAHARAJ Rep #: [id number] : 1945 72 From: Gilson Washington PCP: Margarita Drake DO Status: REG CLI This patient was seen during an EMR downtime February 05, 2018 - February 12, 2018. This patient may have a combination o f paper and electronic documentation or all paper documentation. All documentation is viewable within the e-chart portion of [employer] for each patient visit. 08-Feb-2018 Spine Lumbar (Routine) Result: Comments: See Note; NOTES: [facility] Imaging Services [address] [place] [address] Spine Lumbar (Routine) MR#: [id number] Acct: [id number] Name: MAR MAHARAJ Rep #: [id number] : 1945 F 72 From: Dylan Donato MD PCP: Margarita Drake DO Status: REG CLI Study: Spine Lumbar (Routine) Date of Exam: 02/08/18 Exam# [id number] Ordering Dr: De Yepez STUDY: MRI LUMBAR [...] , CC: NICO YEPEZ; Margarita Drake DO Computer Support Specialist Instructor: Signed 08-Feb-2018 Spine Lumbar without Contrast Result: Comments: See Note; NOTES: [facility] Imaging Services [address] [place] [address] Spine Lumbar without Contrast MR#: [id number] Acct: [id number] Name: MAR MAHARAJ Rep # : [id number] : 1945 F 72 From: Robles Mejia PCP: Margarita Drake DO Status: REG CLI Study: Spine Lumbar without Contrast Date of Exam: 02/08/18 Exam# [id number] Ordering Dr: De Yepez STUDY: C T [...] paraspinous soft tissue structures. ORDE R #: [id number] CT/Spine Lumbar without Contrast IMPRESSION: Multilevel degenerative change discussed above. Hardware as described. Right L3 pedicle screw appears broken. Grade 1 anterolisthesis of L4 on L5. Laminectomies. Demineralization. Electronically Signed: Robles Mejia DO at 10:57 EDT , Service support , CC: DE Drake DO Computer Support Specialist Instructor: Signed 09-Jan-2018 Pulmonary Visit Report Result: Comments: See Note; NOTES: [facility] [address] [place] [address] OFFICE VISIT Date of Service: 01/09/18 MR#: [id number] Acct: [id number] Name: MAR HOLLIDAY Rep #: [id number] : 1945 Provider: Adair Wu MD Age/Sex: 72/F Location: [facility] Status: Signed Assessment AND Plan [...] 6 M FU Chief Complaint: Follow up [facility] Required: No DME Vendor: [employer] Accompanie d [...] 10/12/17 [History Confirmed 12/03/17] Hydrocodone Bitart/Apap 5-325 [[place] 5MG-325MG] 1 tab PO Q6H PRN PRN 3 Days #10 tab 12/03/17 [Rx] sodium chloride 0.65 % nasal spray aerosol 2 spray INTRANASAL QHS ml 01/09/18 [History Confirmed 01/09/18] PFSH Medical History Hyperlipidemia (Chronic) Elevated blood pressure reading without diagnosis of hypertension (Chronic) Other snf (current) drug therapy (Chronic) Nonrheumatic aortic (valve) [...] Date (if applicable) CC: Ann Marie Cassidy DIRECTOR OF ACCOUNTING; Margarita Drake 03-Dec-2017 Emergency Department Summary Result: Comments: See Note; NOTES: [facility] Medical Records Department [address] [place] [address] Emergency Department Summary 12/03/17 1656 MR#: [id number] Acct: [id number] Name: MAR MAHARAJ Rep #: [id number] : 1945 72 From: Arya Torrez MD [...] blunt trauma This note was generated with [employer] dictation software. It may contain incorrect words, spelling, and punctuation that were not noted in review of the chart prior to signing ED Disposition - Plan for ED Patient: Disposition: Home or Assisted Living Chief Complaint: Chest Other Instructions: ED Contusion Vs Minor Fx Rib Prescriptions: Hydrocodone Bitart/Apap 5-325 [[place] 5MG-325MG] 1 tab PO Q6H PRN PRN 3 Days #10 tab PRN Reason: Alena n Referrals: Margarita Drake, [Primary Care Provider] - 1 Week if not improving What to do if you have Problems For any increased pain, shortness of breath, bleeding, nausea or vomiting, chest pa in, or any unexpected problems, contact your Primary Care Provider. Call [facility] ([phone]) or report to the closest Emergency Room. Call 911 if necessary. 12/03/17 1706 <Electron ically signed by Arya Torrez MD> Date Arya Torrez MD Cosigner Signature (If Indicated): Date CC: Margarita Drake DO 03-Dec-2017 Chest PA and Lateral Result: Comments: See Note; NOTES: [facility] Imaging Services [address] [place] [address] Chest PA and Lateral MR#: [id number] Acct: [id number] Name: MAR MAHARAJ Rep #: [id number] : 1945 F 72 From: Lotus Anthony MD PCP: Margarita Drake DO Status: DEP ER Study: Chest PA and Lateral Date of Exam: 12/03/17 Exam# [id number] Ordering Dr: Arya Torrez MD STUDY: X-RAY [...] CC: Margarita Drake DO; Arya Torrez MD Computer Support Specialist Instructor: Signed 18-Oct-2017 SCREENING MAMM (CAD), BILAT Result: Comments: See Note; NOTES: [facility] Imaging Services [address] [place] [address] SCREENING MAMM (CAD), BILAT MR#: [id number] Acct: [id number] Name: MAR MAHARAJ Rep #: [id number] : 1945 F 72 From: Florian Valenzuela MD PCP: Margarita Drake DO Status: REG CLI Study: SCREENING MAMM (CAD), BILAT Date of Exam: 10/18/17 Exam# [id number] Ordering Dr: Alysia Drake DO MAMMOGRAPHY - [...] delay biopsy of a clinically suspicious abnormality. [id number] Electronically Signed: Florian Howard i, MD at 13:51 EST Tel [phone], Service support , CC: Margarita Drake DO Computer Support Specialist Instructor: Signed 13-Oct-2017 Cardiology Visit Report Result: Comments: See Note; NOTES: [facility] [address] [place] [address]. [address] [place] [address] OFFICE VISIT Date of Service: 10/13/17 MR#: [id number] Acct: [id number] Name: MAR MAHARAJ Rep #: [id number] : 1945 Provider: Sergio Lawler MD Age/Sex: 72/F Location: [facility] Status: Signed HPI HPI Chief Complaint: Follow [...] reading without diagnosis of hypertension (Chronic) Other snf (current) drug ther apy (Chronic) Nonrheumatic aortic (valve) insufficiency (Chronic) Nonrheumatic tricuspid (valve) insufficiency (Chronic) Other secondary pulmonary hypertension (Chronic) Nonischemic cardiomyopathy ([employer]anning [employer] Attendant deaneglo) Fatigue (Chronic) Hx pulmonary embolism (Resolved) Takotsubo [...] AND Plan 1. Coronary artery disease involving benton coronary artery of benton heart without angina pectoris I25.10 Mild Plan [...] vis,est,level 3 Diagnoses Coronary artery disease involving benton coronary artery of benton heart without angina pectoris I25.10 Coronary Disease-Associated Artery/Lesion type: benton artery [place] vs. transplanted heart: benton heart Associated angina: without angina Essential hyperten tamika I10 Hypertension type: essential hypertension Coding Level of Care Code Off vis,est,level 3 Diagnoses Coronary artery disease involving benton coronary artery of benton heart without angina pect wilber I25.10 Coronary Disease-Associated Artery/Lesion type: benton artery [place] vs. transplanted heart: benton heart Associated angina: without angina Essential hypertension I10 Hypertension type: esse ntial hypertension 10/13/17 1546 <Electronically signed by Sergio Lawler MD> Date Sergio Lawler MD Cosigner Signature: Date _ (if applicable) CC: Margarita Drake DO 26-Sep-2017 Chest PA and Lateral Result: Comments: See Note; NOTES: [facility] Imaging Services [address] [place] [address] Chest PA and Lateral MR#: [id number] Acct: [id number] Name: MAR MAHARAJ Rep #: [id number] : 1945 F 72 From: Quinn Pringle PCP: Margarita Drake DO Status: REG CLI Study: Chest PA and Lateral Date of Exam: 09/26/17 Exam# [id number] Ordering Dr: Allyn Manley DIRECTOR OF ACCOUNTING-C STUDY: X-RAY C HEST REASON FOR EXAM: [...] , CC: HUANG Manley; Margarita Drake DO Computer Support Specialist Instructor: Signed 22-May-2017 History and Physical Exam Result: Comments: See Note; NOTES: [facility] Medical Records Department [address] [place] [address] History and Physical 05/22/17 1809 MR#: [id number] Acct: [id number] Name: RUDY MAHARAJ Rep #: [id number] : 1945 71 From: Edward Chao DO [...] knee (Chronic) Sinusitis, chronic (Chronic) Takotsubo cardiomyopathy ([employer]anning [employer] Attendant deangelo) chairi malformations/p posterior decompr (Chronic) Allergies [...] 7 back surgeries Psychiatric History: Anxiety, Depression 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 Call Esperanza barnard ([phone]) or report to the closest Emergency Room. Call 911 if necessary. 05/22/17 1710 <Electronically signed by Angelo William MD> Date Angelo William MD Cosigner Signature (If Indicated): Date CC: Ann Marie Cassidy 22-May-2017 Brain/Head without Contrast Result: Comments: See Note; NOTES: [facility] Imaging Services [address] [place] [address] Brain/Head without Contrast MR#: [id number] Acct: [id number] Name: MAR MAHARAJ Rep #: [id number] : 1945 F 71 From: Dorothy Barber MD PCP: Ann Marie Cassidy Status: REG ER Study: Brain/Head without Contrast Date of Exam: 05/22/17 Exam# [id number] Ordering Dr: Angelo William MD STUDY : [...] CC: Ann Marie Cassidy; Angelo William MD Computer Support Specialist Instructor: Signed 22-May-2017 Chest 1 View (Portable) Result: Comments: See Note; NOTES: [facility] Imaging Services [address] [place] [address] Chest 1 View (Portable) MR#: [id number] Acct: [id number] Name: MAR MAHARAJ Rep #: [id number] : 1945 F 71 From: Dorothy Barber MD PCP: Ann Marie Cassidy Status: REG ER Study: Chest 1 View (Portable) Date of Exam: 05/22/17 Exam# [id number] Ordering Dr: Angelo William MD STUDY: X-RAY [...] CC: Ann Marie Cassidy; Angelo William MD Computer Support Specialist Instructor: Signed 17-May-2017 Emergency Department Summary Result: Comments: See Note; NOTES: [facility] Medical Records Department [address] [place] [address] Emergency Department Summary 05/17/17 1543 MR#: [id number] Acct: [id number] Name: MAR MAHARAJ Rep #: [id number] : 1945 71 From: Tab Peacock MD [...] problems, contact your Primary Care Provider. Call [facility] ([phone]) or report to the closest Emergency Room. Call 911 if necessary. 05/17/17 1652 <Electronically signed b austin Peacock MD> Date Tab Peacock MD Cosigner Signature (If Indicated): Date CC: Ann Marie Cassidy 28-Apr-2017 Emergency Department Summary Result: Comments: See Note; NOTES: [facility] Medical Records Department [address] [place] [address] Emergency Department Summary 04/28/17 1059 MR#: [id number] Acct: [id number] Name: MAR MAHARAJ Rep #: [id number] : 1945 71 From: Tab Peacock MD PCP: Ann Marie Casisdy Status: REG ER - ER Visit Summary [...] Primary Care Provider. Call [facility] ist[facility] ([phone]) or report to the closest Emergency Room. Call 911 if necessary. 04/28/17 1306 <Electronically signed by Tab Peacock MD> Date Tab Peacock MD Cosigner Signature (If Indicated): Date CC: Ann Marie Cassidy 28-Apr-2017 Chest 1 View (Portable) Result: Comments: See Note; NOTES: [facility] Imaging Services [address] [place] [address] Chest 1 View (Portable) MR#: [id number] Acct: [id number] Name: MAR MAHARAJ Rep #: [id number] : 1945 F 71 From: Sekou Bose DO PCP: Ann Marie Cassidy Status: REG ER Study: Chest 1 View (Portable) Date of Exam: 04/28/17 Exam# [id number] Ordering Dr: Tab Peacock MD STUDY: X-RAY [...] CC: Ann Marie Cassidy; Tab Peacock MD Computer Support Specialist Instructor: Signed 12-Apr-2017 Echocardiogram Complete Result: Comments: See Note; NOTES: [facility] Cardiovascular Services [address] [place] [address] Echo Complete 04/12/17 1150 MR#: [id number] Acct: [id number] Name: MAR MAHARAJ Rep #: [id number] : 1945 71 From: Sergio Lawler MD Attending Dr: Nuris ARAGON,Sergio Status: REG CLI Ordering Dr: Sergio Lawler MD Date: 04/12/17 Location: [facility] Sex: F C Admitted: Reason For [...] Dictated: 04/12/17 1 150 Date Transcribed: 04/12/171648 Computer Support Specialist Instructor: Signed 13-Mar-2017 Finger(s) Min 2 Views Result: Comments: See Note; NOTES: [facility] Imaging Services [address] [place] [address] Verdana 4d Finger(s) Min 2 Views MR#: [id number] Acct: [id number] Name: MAR MAHARAJ Katy p #: [id number] : 1945 F 71 From: Maldonado Pablo DO PCP: Ann Marie Cassidy Status: REG CLI Study: Finger(s) Min 2 Views Date of Exam: 03/13/17 Exam# [id number] Ordering Dr: Libby Mai DO STUDY: X-RA [...] Maldonado DO Samy at 22:01 EDT Tel [phone], Service support , CC: Ann Marie Mai DO Computer Support Specialist Instructor: Signed 15-Feb-2017 Cerv Spine 4 or 5 Views Result: Comments: See Note; NOTES: [facility] Imaging Services [address] [place] [address] Verdana 4d Cerv Spine 4 or 5 Views MR#: [id number] Acct: [id number] Name: MAR MAHARAJ Rep #: [id number] : 1945 F 71 From: Vitaly Turner MD PCP: Ann Marie Cassidy Status: REG CLI Study: Cerv Spine 4 or 5 Views Date of Exam: 02/15/17 Exam# [id number] Ordering Dr: De Yepez STUDY: X -RAY [...] Service support , CC: Ann Marie YEPEZ Computer Support Specialist Instructor: Signed 14-Feb-2017 Spine Lumbar (Routine) Result: Comments: See Note; NOTES: [facility] Imaging Services [address] [place] [address] Anju 4d Spine Lumbar (Routine) MR#: [id number] Acct: [id number] Name: MAR MAHARAJ ep #: [id number] : 1945 F 71 From: Dylan Donato MD PCP: Ann Marie Cassidy Status: REG CLI Study: Spine Lumbar (Routine) Date of Exam: 02/14/17 Exam# [id number] Ordering Dr: Abdiel Betts MD LORENA DY: [...] CC: Ann Marie Cassidy; Abdiel Betts MD Computer Support Specialist Instructor: Signed 22-Jan-2017 Abdomen/Pelvis without Cont Result: Comments: See Note; NOTES: [facility] Imaging Services [address] [place] [address] Verdana 4d Abdomen/Pelvis without Cont MR#: [id number] Acct: [id number] Name: JOHN MAHARAJ Rep #: [id number] : 1945 F 71 From: Jeb Piedra MD PCP: Ann Marie Cassidy Status: REG ER Study: Abdomen/Pelvis without Cont Date of Exam: 01/22/17 Exam# [id number] Ordering Dr: Stacy Corey MD STUDY: CT [...] CC: Ann Marie Cassidy; Noelle Corey MD Computer Support Specialist Instructor: Signed 25-Dec-2016 Venous Duplex Lower Extremity Result: Comments: See Note; NOTES: [facility] Cardiovascular Services [address] [place] [address] Venous Duplex US, Unilateral 12/23/16 1042 MR#: [id number] Acct: [id number] Name: MAR DEAN Rep #: [id number] : 1945 71 From: David Hawthorne MD [...] Date Dictated: 12/23/16 1042 Date Transcribed: 12/25/161936 Computer Support Specialist Instructor: Signed 19-Dec-2016 Chest 1 View (Portable) Result: Comments: See Note; NOTES: [facility] Imaging Services [address] [place] [address] Verdana 4d Chest 1 View (Portable) MR#: [id number] Acct: [id number] Name: MAR MAHARAJ Rep #: [id number] : 1945 F 71 From: Alfa Bettencourt MD PCP: Ann Marie Cassidy Status: REG ER Study: Chest 1 View (Portable) Date of Exam: 12/19/16 Exam# [id number] Ordering Dr: Edin Rodriguez MD STUDY: X- [...] CC: Ann Marie Cassidy; Edin Rodriguez MD Computer Support Specialist Instructor: Signed 19-Dec-2016 Abdomen/Pelvis without Cont Result: Comments: See Note; NOTES: [facility] Imaging Services [address] [place] [address] Verdana 4d Abdomen/Pelvis without Cont MR#: [id number] Acct: [id number] Name: JOHN MAHARAJ Rep #: [id number] : 1945 F 71 From: Alfa Bettencourt MD PCP: Ann Marie Cassidy Status: REG ER Study: Abdomen/Pelvis without Cont Date of Exam: 12/19/16 Exam# [id number] Ordering Dr: Edin Rodriguez MD S KARINEDY: [...] Tel , Service support , CC: Ann Marei Cassidy; Edin Rodriguez MD Computer Support Specialist Instructor: Signed 15-Dec-2016 Emergency Department Summary Result: Comments: See Note; NOTES: [facility] Medical Records Department [address] [place] [address] Emergency Department Summary MR#: [id number] Acct: [id number] Name: JOHN MAHARAJ Rep #: [id number] : 1945 71 From: Shon Amaya MD [...] pain SHON AMAYA MD T: RUFUS JOB: [id number] 12/15/16 1522 <Electronically signed by Shon Amaya MD> Date Shon Amaya MD Cosigner Signature (If Indicated): Date CC: Ann Marie Cassidy Date Dictated: 12/13/162342 Date Transcribed: 12/13/162342 Computer Support Specialist Instructor: Signed 15-Dec-2016 12 Lead Electrocardiogram Result: Comments: See Note; NOTES: [facility] Cardiovascular Services [address] [place] [address] 12 Lead EKG 12/13/161602 MR#: [id number] Acct: [id number] Name: CAROL ANNMARSUDHA Burns p #: [id number] : 1945 71 From: Astrid Merlos MD [...] undetermined Abnormal ECG Confirmed by ASTRID MERLOS ([id number]), rewrite editor CHRISTIAN WASHINGTON ([id number]) on 017 1:15:30 PM Referred By: JOSE LUIS Confirmed By:ASTRID MERLOS 12/15/16 1315 Date Astrid Merlos MD CC: Ann Marie Cassidy Date Dictated: 12/13/16 1603 Date Transcribed: 12/13/161602 Computer Support Specialist Instructor: Signed 14-Dec-2016 Venous Duplex Lower Extremity Result: Comments: See Note; NOTES: [facility] Cardiovascular Services [address] [place] [address] Venous Duplex US, Unilateral 12/13/16 1612 MR#: [id number] Acct: [id number] Name: MAR DEAN Rep #: [id number] : 1945 71 From: Rj Cleary MD [...] Date Dictated: 12/13/16 1612 Date Transcribed: 12/14/16602 Computer Support Specialist Instructor: Signed 13-Dec-2016 Discharge Instruction Result: Comments: See Note; NOTES: [facility] Medical Records Department [address] [place] [address] Discharge Instruction 12/13/16 190 MR#: [id number] Acct: [id number] Name: CAROL ANNRadhaNellie Muñoz Rep #: [id number] : 1945 71 From: Shon Amaya MD [...] your Primary Care Provider. Call [facility] ([phone]) or report to the closest Emergency Room. Call 911 if necessary. 12/13/162044 <Electronically signed by Shon Amaya MD&amp ;#62; Date Shon Amaya MD Cosigner Signature (If Indicated): Date CC: Ann Marie Cassidy 13-Dec-2016 Chest 1 View (Portable) Result: Comments: See Note; NOTES: [facility] Imaging Services [address] [place] [address] Verdana 4d Chest 1 View (Portable) MR#: [id number] Acct: [id number] Name: MAR MAHARAJ Rep #: [id number] : 1945 F 71 From: Trent Arias MD PCP: Ann Marie Cassidy Status: REG ER Study: Chest 1 View (Portable) Date of Exam: 12/13/16 Exam# [id number] Ordering Dr: Shon Amaya MD STUDY: X-RAY [...] MD at 17:07 EDT , Service support [phone], CC: Ann Marie Cassidy; Shon Amaya MD Computer Support Specialist Instructor: Signed 13-Dec-2016 Abdomen/Pelvis W IV Cont ONLY Result: Comments: See Note; NOTES: [facility] Imaging Services [address] [place] [address] Verdana 4d Abdomen/Pelvis W IV Cont ONLY MR#: [id number] Acct: [id number] Name: LILI MAHARAJ Rep #: [id number] : 1945 F 71 From: Trent Arias MD PCP: Ann Marie Cassidy Status: REG ER Study: Abdomen/Pelvis W IV Cont ONLY Date of Exam: 12/13/16 Exam# [id number] Ordering Dr: Shon Amaya MD STUDY: CT [...] MD at 18:25 EDT , Service support [phone], CC: Ann Marie Cassidy; Shon Amaya MD Computer Support Specialist Instructor: Signed 15-Nov-2016 History and Physical Exam Result: Comments: See Note; NOTES: [facility] Medical Records Department [address] [place] [address] History and Physical 11/09/16 1003 MR#: [id number] Acct: [id number] Name: Radha MAHARAJ Rep #: [id number] : 1945 71 From: Glenn Ro PCP: Ann Marie Cassidy Status: PRE IN Location: [facility] DATE OF SERVICE: 11/22/2016 This is [...] hip arthroplasty in 2003, Dr. Darien Avina, [facility]. 2. Hysterectomy. 3. Appendectomy. 4. Cholec ystectomy. 5. Brain surgery x2 Arnold-Chiari malformation. 6. Carpal tunnel bilaterally. 7. Cervical surgery, December 2013 at [facility]. 8. Right total knee arthroplasty on August 19, 2014, Dr. Darien Avina , [facility]. 9. Laminectomy 2000, instrumentation lumbar fusion. 10. Right total hip arthroplasty in 2013, revision assistive devices. The patient admits to full upper dentures. Denies glasses or hearing aids. SOCIAL HISTORY: The patient is retired, works part-time. Denies tobacco use, denies alcohol use, denies illicit drug use. REVIEW OF SYSTEMS: Documented in the [facility] medical hi story sheet, please refer [...] of left knee dated October 17, 2016, [facility], weightbearing, AP, tunnel, sunrise, lateral views [...] the hospital. YADIRA Narvaez T: RUFUS JOB: [id number] 11/15/16 0839 <Electronically signed by Glenn Ro > Date: Time: Glenn Ro CC: Ann Marie Cassidy; Glenn Ro Date Dictated: 11/09/16 1003 Date Transcribed: 7 1003 Computer Support Specialist Instructor: Signed ____ I have re-examined the patient. There are no clinical changes since date of exam. ____ See Progress Notes for Changes ____ Dictated on Admission Date: ___ Time: Signature: 24-Oct-2016 History and Physical Exam Result: Comments: See Note; NOTES: [facility] Medical Records Department [address] [place] [address] History and Physical 10/19/16 1537 MR#: [id number] Acct: [id number] Name: Radha MAHARAJ Rep #: [id number] : 1945 71 From: Glenn Ro PCP: Ann Marie Cassidy Status: PRE IN Location: [facility] DATE OF SERVICE: 10/25/2016 This is [...] a previous right total knee arthroplasty in [facility] er 2013, is very pleased [...] 7. Cervical surgery in ril 2013 in [facility]. 8. Right total knee arthroplasty on August [...] use. REVIEW OF SYSTEMS: Documented in the [facility] medical history sheet. Please refer to [...] X-rays of l eft knee dated 10/17/2016, [facility], weightbearing, AP, tunnel, [...] Ro Date Dictated: 10/19/161536 Date Transcribed: 10/19/161536 Computer Support Specialist Instructor: Toni igned ____ I have re-examined the patient. There are no clinical changes since date of exam. ____ See Progress Notes for Changes ____ Dictated on Admission Date: Time: Sig nature: 23-Oct-2016 Chest PA and Lateral Result: Comments: See Note; NOTES: [facility] Imaging Services [address] [place] [address] Verdana 4d Chest PA and Lateral MR#: [id number] Acct: [id number] Name: MAR MAHARAJ Rep #: [id number] : 1945 F 71 From: Heraclio Meredith MD PCP: Ann Marie Cassidy Status: PRE ER Study: Chest PA and Lateral Date of Exam: 10/23/16 Exam# [id number] Ordering Dr: Edin Horton MD STUDY: X-RAY [...] MD at 14:44 EST , Service support [phone], CC: Mary Cassidy; Edin Horton MD Computer Support Specialist Instructor: Signed 23-Sep-2016 Echocardiogram Complete Result: Comments: See Note; NOTES: [facility] Cardiovascular Services [address] [place] [address] Echo Complete 09/23/16 1311 MR#: [id number] Acct: [id number] Name: MAR MAHARAJ Rep #: [id number] : 1945 71 From: Sergio Lawler MD [...] Dictated: 09/23/16 1311 Date Transcribed: 09/23/16 1521 Computer Support Specialist Instructor: Signed 21-Sep-2016 12 Lead Electrocardiogram Result: Comments: See Note; NOTES: [facility] Cardiovascular Services [address] [place] [address] 12 Lead EKG 09/18/16 1204 MR#: [id number] Acct: [id number] Name: MAR MAHARAJ Katy p #: [id number] : 1945 71 From: Cade Harrison MD [...] ECG Confirmed by OMAR ARAGON, CADE ([id number]), rewrite editor CHRISTIAN WASHINGTON ([id number]) on 09/21/2016 1:40:15 PM Referred By: FLORIN Confirmed By:CADE HARRISON MD 09/21/16 1340 Date Cade Harrison MD CC: Ann Marie Cassidy Date Dictated: 09/18/16 1204 Date Transcribed: 09/18/16 1204 Computer Support Specialist Instructor: Signed 20-Sep-2016 Emergency Department Summary Result: Comments: See Note; NOTES: [facility] Medical Records Department [address] [place] [address] Emergency Department Summary MR#: [id number] Acct: [id number] Name: JOHN MAHARAJ Rep #: [id number] : 1945 71 From: Edin Rodriguez MD [...] C: Ann Marie Cassidy T: NTS JOB: [id number] 09/20/16 1522 <Electronically signed by Edin Rodriguez MD> Date __ Edin Rodriguez MD Cosigner Signature (If Indicated): Date CC: Ann Marie Cassidy Date Dictated: 09/18/16 1339 Date Trans cribed: 09/18/16 1339 Computer Support Specialist Instructor: Signed 18-Sep-2016 Discharge Instruction Result: Comments: See Note; NOTES: [facility] Medical Records Department [address] [place] [address] Discharge Instruction 09/18/16 1334 MR#: [id number] Acct: [id number] Name: Radha MAHARAJ Rep #: [id number] : 1945 71 From: Edin Rodriguez MD [...] problems, contact your Primary Care Provider. Call [facility] ([phone]) or report to the closest Emergency Room. Call 911 if necessary. 09/18/16 1336 & #60;Electronically signed by Edin Rodriguez MD> Date Edin Rodriguez MD Cosigner Signature (If Indicated): Date CC: Ann Marie Khanh 18-Sep-2016 Chest PA and Lateral Result: Comments: See Note; NOTES: [facility] Imaging Services [address] [place] [address] Verdana 4d Chest PA and Lateral MR#: [id number] Acct: [id number] Name: CAROL ANNMAR S Rep #: [id number] : 1945 F 71 From: Rolly Aviles MD PCP: Ann Marie Cassidy Status: REG ER Study: Chest PA and Lateral Date of Exam: 09/18/16 Exam# [id number] Ordering Dr: Edin Rodriguez MD STUDY: X-RAY [...] 13:29 EST Te l , Service support [phone], CC: Ann Marie Cassidy; Edin Rodriguez MD Computer Support Specialist Instructor: Signed 17-Aug-2016 Knee 4 or More Views Result: Comments: See Note; NOTES: [facility] Imaging Services [address] [place] [address] Verdana 4d Knee 4 or More Views MR#: [id number] Acct: [id number] Name: MAR MAHARAJ Rep #: [id number] : 1945 F 71 From: Florian Valenzuela MD PCP: Davian Mccray Status: REG CLI Study: Knee 4 or More Views Date of Exam: 08/17/16 Exam# [id number] Ordering Dr: Gemma Nina MD STUD Y: [...] Florian Valenzuela MD at 15:48 EST Tel [phone], Service support [phone], CC: Tejal Mccray; Gemma Nina MD Computer Support Specialist Instructor: Signed 17-Aug-2016 Tibia AND Fibula 2 Views Result: Comments: See Note; NOTES: [facility] Imaging Services [address] [place] [address] Verdana 4d Tibia AND Fibula 2 Views MR#: [id number] Acct: [id number] Name: MAR MAHARAJ Rep #: [id number] : 1945 F 71 From: Florian Valenzuela MD PCP: Davian Mccray Status: REG CLI Study: Tibia AND Fibula 2 Views Date of Exam: 08/17/16 Exam# [id number] Ordering Dr: Gemma Nina STUDY: X-RAY - [...] Florian Valenzuela MD at 15:42 EST Tel [phone], Service support [phone], CC: Davian Nina MD Computer Support Specialist Instructor: Signed 01-Jul-2016 Venous Duplex Lower Extremity Result: Comments: See Note; NOTES: [facility] Cardiovascular Services [address] [place] [address] Venous Duplex US, Unilateral 07/01/16 0850 MR#: [id number] Acct: [id number] Name: MAR MAHARAJ Rep #: [id number] : 1945 70 From: David Hawthorne MD Attending Dr: Luly Noriega DIRECTOR OF ACCOUNTING Status: REG CLI Ordering Dr: Luly Noriega DIRECTOR OF ACCOUNTING-C Date: 07/01/16 Location: [facility] Sex: F C [...] called and/or faxed augmentation. to Luly Noriega DIRECTOR OF ACCOUNTING @ 9:20 am @ [facility] is [...] Date Dictated: 07/01/16 0850 Date Transcribed: 07/01/161936 Computer Support Specialist Instructor: Signed 07-Jun-2016 6 Minute Walk Test Result: Comments: See Note; NOTES: [facility] Pulmonary Services/Neurology [address] [place] [address] MR#: [id number] Acct: [id number] Name: MAR MAHARAJ Rep #: [id number] : 1945 70 From: Adair Wu MD Referring Dr: Luly Noriega NP Date: Ordering Dr: Sex: F C Location: PSN PSN 6 Minute Walk Test - 6 Minute Walk Test 6 Minute Walk Test: 6 Minute Walk Test PSN:6-Minute Walk Test Start: 06/07/16 11:18 Freq: Status: Active Document 06/07/16 11:18 REK (Rec: 06/07/16 11:21 REK [id number]) 6 Minute Walk Test Date Performed 06/07/16 [...] CC: Date Dictated: 06/07/161540 Date Transcribed: 06/07/161540 Computer Support Specialist Instructor: Adair Wu Signed 25-Apr-2016 Chest PA and Lateral Result: Comments: See Note; NOTES: [facility] Imaging Services [address] [place] [address] Verdana 4d Chest PA and Lateral MR#: [id number] Acct: [id number] Name: MAR MAHARAJ Re p #: [id number] : 1945 F 70 From: Stephen Walton DO PCP: Davian Mccray Status: REG ER Study: Chest PA and Lateral Date of Exam: 04/25/16 Exam# [id number] Ordering Dr: Cristhian Mandujano MD STUDY: X-R [...] Stephen Walton DO at 20:12 EDT Tel [phone], Service support [phone], CC: CRISTHIAN MANDUJANO MD; Davian Mccray Computer Support Specialist Instructor: Signed 25-Apr-2016 Abdomen/Pelvis without Cont Result: Comments: See Note; NOTES: [facility] Imaging Services [address] [facility] [place] [address] Verdana 4d Abdomen/Pelvis without Cont MR#: [id number] Acct: [id number] Name: GABE MAHARAJ S Rep #: [id number] : 1945 F 70 From: Stephen Walton DO PCP: Davian Mccray Status: REG ER Study: Abdomen/Pelvis without Cont Date of Exam: 04/25/16 Exam# [id number] Ordering Dr: Cristhian Mandujano MD STUDY: CT [...] Stephen Walton DO at 19:00 EDT Tel [phone], Service support [phone], CC: CRISTHIAN MANDUJANO MD; Davian Mccray Computer Support Specialist Instructor: Signed 12-Mar-2016 Emergency Department Summary Result: Comments: See Note; NOTES: [facility] Medical Records Department [address] [place] [address] Emergency Department Summary MR#: [id number] Acct: [id number] Name: MAR MAHARAJ Rep #: [id number] : 1945 70 From: Darien Warren MD [...] contusion. Darien Warren MD T: NTS JOB: [id number] 03/12/16 0306 <Electronically signed by Darien Warren MD> Date Darien Warren MD Cosigner Signature (If Indicated): Date CC: Davian Mccray Date Dictated: 2326 Date Transcribed: 03/10/162326 Computer Support Specialist Instructor: Signed 10-Mar-2016 Discharge Instruction Result: Comments: See Note; NOTES: [facility] Medical Records Department [address] [place] [address] Discharge Instruction 03/10/162006 MR#: [id number] Acct: [id number] Name: MAR MAHARAJ Rep #: [id number] : 1945 70 From: Darien Warren MD [...] problems, contact your doctor. Call [facility] ([phone]) or report to the closest Emergency Room. Call 911 if necessary. 03/10/162007 <Electronically signed by Darien Warren MD> Date Darien Warren MD Cosigner Signature (If Indicated): Date CC: Davian Mccray 10-Mar-2016 Hip 2-3 Views with Pelvis Result: Comments: See Note; NOTES: [facility] Imaging Services [address] [place] [address] Verdana 4d Hip 2-3 Views with Pelvis MR#: [id number] Acct: [id number] Name: MAR DEAN Rep #: [id number] : 1945 F 70 From: Robles Mejia PCP: Davian Mccray Status: [facility] ER Study: Hip 2-3 Views with Pelvis Date of Exam: 03/10/16 Exam# [id number] Ordering Dr: Carlos Eduardo Warren MD STUDY: [...] MejiaDO at 19:47 EDT , Service support [phone], RAD/Hip 2-3 Views with Pelvis IMPRESSION: Hip joint space narrowing. Stable degenerative changes left hip. No fracture or dislocation. 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 ABNORMAL 25-Jan-2016 Pelvis 1 or 2 Views Result: Comments: See Note; NOTES: [facility] Imaging Services [address] [place] [address] Verdana 4d Pelvis 1 or 2 Views MR#: [id number] Acct: [id number] Name: Radha MAHARAJ Rep #: [id number] : 1945 F 70 From: Doroteo Salgado MD PCP: Davian Mccray Status: REG CLI Study: Pelvis 1 or 2 Views Date of Exam: 01/25/16 Exam# [id number] Ordering Dr: Yadira Nina dma, MD STUDY: [...] at 16 :50 EDT , Service support [phone], RAD/Pelvis 1 or 2 Views IMPRESSION: Focus [...] at 16:50 EDT , Service suppor t [phone], CC: Davian Mccray; Gemma Nina MD Computer Support Specialist Instructor: Signed 19-Nov-2015 Vert Fx Asess/Lat Bone Den(H) Result: Comments: See Note; NOTES: [facility] Imaging Services [address] [place] [address] Verdana 4d Vert Fx Asess/Lat Bone Den(H) MR#: [id number] Acct: [id number] Luciano e: MAR MAHARAJ Rep #: [id number] : 1945 F 70 From: Florian Valenzuela MD PCP: Davian Mccray Status: REG CLI Study: Vert Fx Asess/Lat Bone Den(H) Date of Exam: 11/19/15 Exam# [id number] Chucho ering Dr: Davian Mccray STUDY: DUAL [...] Florian Valenzuela MD at 8:52 EDT Tel [phone], Service support [phone], CC: Davian Mccray Computer Support Specialist Instructor: Signed 19-Nov-2015 Bilat Scrn Digital AND CAD Result: Comments: See Note; NOTES: [facility] Imaging Services [address] [place] [address] Verdana 4d Bilat Scrn Digital AND CAD MR#: [id number] Acct: [id number] Name: MAR MAHARAJ Rep #: [id number] : 1945 F 70 From: Florian Valenzuela MD PCP: Davian Mccray Status: REG CLI Study: Bilat Scrn Digital AND CAD Date of Exam: 11/19/15 Exam# [id number] Ordering Dr: Davian Mccray MAMMOGRAPHY - BILATERAL [...] Florian Valenzuela MD at 10:06 EDT Tel [phone], Service support [phone], CC: Davian Mccray Computer Support Specialist Instructor: Signed 19-Nov-2015 Bilat Scrn Digital AND CAD Result: Comments: See Note; NOTES: [facility] Imaging Services [address] [place] [address] Verdana 4d Bilat Scrn Digital AND CAD MR#: [id number] Acct: [id number] Name: MAR MAHARAJ Rep #: [id number] : 1945 F 70 From: Florian Valenzuela MD PCP: Davian Mccray Status: REG CLI Study: Bilat Scrn Digital AND CAD Date of Exam: 11/19/15 Exam# [id number] Ordering Dr: Davian Mccray MAMMOGRAPHY - BILATERAL [...] Florian Valenzuela MD at 10:06 EDT Tel [phone], Service support [phone], CC: Davian Mccray Computer Support Specialist Instructor: Signed 19-Nov-2015 Dexa Bone Density Study (HP) Result: Comments: See Note; NOTES: [facility] Imaging Services [address] [place] [address] Verdana 4d Dexa Bone Density Study () MR#: [id number] Acct: [id number] Name : MAR MAHARAJ Rep #: [id number] : 1945 F 70 From: Florian Valenzuela MD PCP: Davian Mccray Status: [facility] Study: Dexa Bone Density Study () Date of Exam: 11/19/15 Exam# [id number] Order ing Dr: Davian Mccray STUDY: DUAL [...] Florian Valenzuela MD at 12:53 EDT Tel [phone], Service support [phone], F ax [phone] CC: Davian Mccray Computer Support Specialist Instructor: Signed 19-Nov-2015 Thyroid Result: Comments: See Note; NOTES: [facility] Imaging Services [address] [place] [address] Verdana 4d Thyroid MR#: [id number] Acct: [id number] Name: MAR MAHARAJ Rep #: [id number] : 1945 F 70 From: Stephen Walton DO PCP: Davian Mccray Status: REG CLI Study: Thyroid Date of Exam: 11/19/15 Exam# [id number] Ordering Dr: Davian Mccray STUDY: THYROID ULTRASOUN [...] Stephen Walton DO at 16:48 EDT Tel [phone], Service support [phone], CC: Davian Mccray Computer Support Specialist Instructor: Signed 17-Dec-2014 Cerv Spine 2 or 3 Views Result: Comments: See Note; NOTES: [facility] Imaging Services [address] [place] [address] Radiology Report MR#: [id number] Acct: [id number] Name: MAR MAHARAJ Rep #: [id number] : 1945 F 69 From: Vitaly Turner MD PCP: Libby Mai DO Status: REG CLI Study: Cerv Spine 2 or 3 Views Date of Exam: 12/17/14 Exam# [id number] Ordering Dr: De Yepez STUDY: X-RAY - [...] at 11:32 EDT Tel , Service support [phone], 0045 RAD/Cerv Spine 2 or 3 Views IMPRESSION: Status post anterior fusion from C3-C6, with 3 mm extrusion of the C6 screw. Loss of the normal lordosis. No signs of instability. Electronically Signed: Vitaly Turner MD, FACR at 11:32 EDT , Service support [phone], CC: DE YEPEZ; Libby Mai DO Computer Support Specialist Instructor: Signed 17-Dec-2014 Spine Cervical (Routine) Result: Comments: See Note; NOTES: [facility] Imaging Services [address] [place] [address] MRI Report MR#: [id number] Acct: [id number] Name: MAR MAHARAJ Rep #: [id number] : 1945 F 69 From: Vitaly Turner MD PCP: Libby Mai DO Status: REG CLI Study: Spine Cervical (Routine) Date of Exam: 12/17/14 Exam# [id number] Ordering Dr: De Yepez STUDY: MRI CERVIC [...] FACR at 11:15 EDT , Service support [phone], CC: DE YEPEZ; Libby Mai DO Computer Support Specialist Instructor: Signed 15-Dec-2014 Thyroid Result: Comments: See Note; NOTES: [facility] Imaging Services [address] [place] [address] Ultrasound Report MR#: [id number] Acct: [id number] Name: MAR MAHARAJ Rep #: [id number] : 1945 F 69 From: Stephen Walton DO PCP: Libby Mai DO Status: REG CLI Study: Thyroid Date of Exam: 12/15/14 Exam# [id number] Ordering Dr: Lisa Garcia MD STUDY: THYROID [...] Stephen Walton DO at 13:38 EDT Tel [phone], Service support [phone], CC: Libby Mai DO; Lisa Garcia MD Computer Support Specialist Instructor: Signed 17-Nov-2014 Bilat Scrn Digital AND CAD Result: Comments: See Note; NOTES: [facility] Imaging Services [address] [place] [place] [address] Breast Imaging Report MR#: [id number] Acct: [id number] Name: MAR MAHARAJ Rep #: [id number] : 1945 F 69 From: Alfa Bettencourt MD PCP: Libby Mai DO Status: REG CLI Study: Bilat Scrn Digital AND CAD Date of Exam: 11/17/14 Exam# [id number] Ordering Dr: Libby Mai DO MAMMOGR APHY [...] at 12:06 EDT Tel , Service support [phone], CC: Libby Mai DO Computer Support Specialist Instructor: Signed 17-Nov-2014 Chest without Contrast Result: Comments: See Note; NOTES: [facility] Imaging Services [address] [place] [address] CAT Scan Report MR#: [id number] Acct: [id number] Name: MAR MAHARAJ Rep #: [id number] : 1945 F 69 From: Alfa Bettencourt MD PCP: Libby Mai DO Status: REG CLI Study: Chest without Contrast Date of Exam: 11/17/14 Exam# [id number] Ordering Dr: Libby Mai DO STUDY: CT [...] at 10:21 EDT Tel , Service support [phone], CC: Libby Mai DO Computer Support Specialist Instructor: Signed 23-Sep-2014 Brain/Head without Contrast Result: Comments: See Note; NOTES: [facility] Imaging Services [address] [place] [address] CAT Scan Report MR#: [id number] Acct: [id number] Name: MAR MAHARAJ Rep #: [id number] : 1945 F 69 From: Parminder Rashid MD PCP: Libby Mai DO Status: REG ER Study: Brain/Head without Contrast Date of Exam: 09/23/14 Exam# [id number] Ordering Dr: Rachel Avina MD STUDY: CT [...] MD at 21:19 EST , Service support [phone], CC: Libby aMi DO; Rachel Avina MD Computer Support Specialist Instructor: Signed 23-Sep-2014 Spine Cervical without Contras Result: Comments: See Note; NOTES: [facility] Imaging Services [address] [facility] [address] CAT Scan Report MR#: [id number] Acct: [id number] Name: MAR MAHARAJ Rep #: [id number] : 1945 F 69 From: Parminder Rashid MD PCP: Libby Mai DO Status: REG ER Study: Spine Cervical without Contras Date of Exam: 09/23/14 Exam# [id number] Ordering Dr: Rachel Avina MD LORENA DY: [...] MD at 21:25 EST , Service support [phone], CC: Libby Mai DO; Rachel Avina MD Computer Support Specialist Instructor: Signed 21-Aug-2014 Discharge Instruction Result: Comments: See Note; NOTES: [facility] Medical Records Department [address] [place] [address] Instructions for Home/Discharge Instructions 08/21/14 1712 MR#: [id number] Acc t: [id number] Name: MAR MAHARAJ Rep #: [id number] : 1945 69 From: Galo Antonio PA-C [...] needed. Additional Instructions: F/U APPT S PER [facility] POST-OP INSTRUCTIONS F/U WITH GLENN RO 09/03/14 9:15 AM PHYSICAL THERAPY APPT WITH CADE @ [facility] 08/25/14 @ 9:00 AM, WILL HAVE [...] Please Follow Up With: Glenn Ro 08/21/14 3726 <Electronically signed by Galo Antonio PA-C> Date ___ Galo Antonio PA-C CC: Libby Mai DO 19-Aug-2014 Knee 1 or 2 Views Result: Comments: See Note; NOTES: [facility] Imaging Services [address] [place] [address] Radiology Report MR#: [id number] Acct: [id number] Name: MAR MAHARAJ Rep #: [id number] : 1945 F 69 From: Bakari Kenny MD PCP: Libby Mai DO Status: ADM IN Study: Knee 1 or 2 Views Date of Exam: 08/19/14 Exam# [id number] Ordering Dr: Darien Avina MD STUDY: X-RAY [...] MD at 16:29 EST , Service support [phone], CC: Libby Mai DO; Darien Avina MD Computer Support Specialist Instructor: Signed 12-Aug-2014 History and Physical Exam Result: Comments: See Note; NOTES: [facility] Medical Records Department [address] [place] [address] History and Physical 08/11/14 1334 MR#: [id number] Acct: [id number] Name: MAR MAHARAJ Rep #: [id number] : 1945 69 From: Glenn Ro PCP: Libby Mai DO Status: PRE IN Location: [facility] DATE OF SERVICE: 08/19/2014 PRIMARY CARE [...] b.i.d. REVIEW OF SYSTEMS: Documented in the [facility] medical history sheet. Please refer to [...] of right knee dated May 30, 2014, [facility], weightbearing, AP, tunnel, [...] consent form. YADIRA Narvaez T: RUFUS JOB: [id number] 08/12/14 0740 <Electronically signed by Glenn Ro > Date: Time: Glenn Ro CC: Glenn Mai DO Date Dictated: 08/11/141333 Date Transcribed: 08/11/141333 Computer Support Specialist Instructor: Signed ____ I have re-examined the patient. There a re no clinical changes since date of exam. ____ See Progress Notes for Changes ____ Dictated on Admission Date: Time: Signature: 23-May-2014 Hip min 2 Views Result: Comments: See Note; NOTES: [facility] Imaging Services [address] [place] [address] Radiology Report MR#: [id number] Acct: [id number] Name: MAR MAHARAJ Rep #: [id number] : 1945 F 68 From: Florian Valenzuela MD PCP: Libby Mai DO Status: REG CLI Study: Hip min 2 Views Date of Exam: 05/23/14 Exam# [id number] Ordering Dr: Libby Mai DO STUDY: X-RAY [...] Florian Valenzuela MD at 9:41 EDT Tel [phone], Service support [phone], CC: Libby Mai DO Computer Support Specialist Instructor: Signed 23-May-2014 Knee 4 or More Views Result: Comments: See Note; NOTES: [facility] Imaging Services [address] [place] [address] Radiology Report MR#: [id number] Acct: [id number] Name: MAR MAHARAJ Rep #: [id number] : 1945 F 68 From: Florian Valenzuela MD PCP: Libby Mai DO Status: REG CLI Study: Knee 4 or More Views Date of Exam: 05/23/14 Exam# [id number] Ordering Dr: Libby Mai DO STUDY: X- [...] Florian Valenzuela MD at 9:42 EDT Tel [phone], Service support [phone], CC: Libby Mai DO Computer Support Specialist Instructor: Signed 02-May-2014 Chest without Contrast Result: Comments: See Note; NOTES: [facility] Imaging Services [address] [place] [address] CAT Scan Report MR#: [id number] Acct: [id number] Name: MAR MAHARAJ Rep #: [id number] : 1945 F 68 From: Cristhian Spears MD PCP: Libby Mai DO Status: REG CLI Study: Chest without Contrast Date of Exam: 05/02/14 Exam# [id number] Ordering Dr: Libby Mai DO STUDY: CT [...] at 15:32 EDT Tel , Service support [phone], CC: Libby Mai DO Computer Support Specialist Instructor: Signed 02-May-2014 Thyroid Result: Comments: See Note; NOTES: [facility] Imaging Services [address] [place] [address] Ultrasound Report MR#: [id number] Acct: [id number] Name: MAR MAHARAJ Rep #: [id number] : 1945 F 68 From: Stephen Walton DO PCP: Libby Mai DO Status: REG CLI Study: Thyroid Date of Exam: 05/02/14 Exam# [id number] Ordering Dr: Libby Mai DO STUDY: THYROID [...] Stephen Walton DO at 19:17 EDT Tel [phone], Service support [phone], CC: Libby Mai DO Computer Support Specialist Instructor: Signed 27-Feb-2014 L/S Spine Min 4 Views Result: Comments: See Note; NOTES: [facility] Imaging Services [address] [place] [address] Radiology Report MR#: [id number] Acct: [id number] Name: MAR MAHARAJ Rep #: [id number] : 1945 F 68 From: Florian Valenzuela MD PCP: Libby Mai DO Status: REG CLI Study: L/S Spine Min 4 Views Date of Exam: 02/27/14 Exam# [id number] Ordering Dr: De Yepez STUDY: X-R AY [...] Florian Valenzuela MD at 10:31 EDT Tel [phone], Service support [phone], RAD/L/S Spine Min 4 Views IMP RESSION: The patient is status post laminectomy and fusion at the L3-L4 and L4- L5 levels with bone graft and bone stimulator. Grade 2 anterolisthesis of L4 on L5. Electronically Signed: Florian khan MD at 10:31 EDT Tel [phone], Service support [phone], CC: DE YEPEZ; Libby Mai DO Computer Support Specialist Instructor: Signed 27-Feb-2014 Spine Lumbar (Routine) Result: Comments: See Note; NOTES: [facility] Imaging Services [address] [place] [address] MRI Report MR#: [id number] Acct: [id number] Name: MAR MAHARAJ Rep #: [id number] : 1945 F 68 From: Angus Arreola PCP: Libby Mai DO Status: REG CLI Study: Spine Lumbar (Routine) Date of Exam: 02/27/14 Exam# [id number] Ordering Dr: De Yepez STUDY: MRI LUMBAR [...] MD at 7:48 EDT , Service support [phone], CC: DE Mai DO Computer Support Specialist Instructor: Signed 10-Feb-2014 Cerv Spine 2 or 3 Views Result: Comments: See Note; NOTES: [facility] Imaging Services [address] [place] [address] Radiology Report MR#: [id number] Acct: [id number] Name: MAR MAHARAJ Rep #: [id number] : 1945 F 68 From: Florian Valenzuela MD PCP: Libby Mai DO Status: REG CLI Study: Cerv Spine 2 or 3 Views Date of Exam: 02/10/14 Exam# [id number] Ordering Dr: De Yepez STUDY: X -RAY [...] Florian Valenzuela MD at 15:54 EDT Tel [phone], Service support [phone], RAD/Cerv Spine 2 or 3 Views IMPRESSION: Status post anterior fu tamika at the C3-C4, C4-C5 and C5-C6 levels. No abnormal movement occurs between the vertebral segments. Electronically Signed: Florian Valenzuela MD at 15:54 EDT Tel [phone], Service support [phone], CC: DE YEPEZ; Libby Mai DO Computer Support Specialist Instructor: Signed 13-Jan-2014 Echocardiogram Complete Result: Comments: See Note; NOTES: [facility] Cardiovascular Services [address] [place] [address] Echo Complete 01/10/14 1155 MR#: [id number] Acct: [id number] Name: LESLY MAHARAJ Rep #: [id number] : 1945 68 From: Sergio Lawler MD Attending Dr: Nuris ARAGON,Sergio Status: REG CLI Ordering Dr: Sergio Lawler MD Date: 01/10/14 Location: [facility] Sex: F C Admitted: [facility] This was a 2D Doppler, Color [...] Dictated: 01/10/14 1155 Date Transcribed: 01/13/14 1103 Computer Support Specialist Instructor: Signed 20-Jun-2013 Valeri Thrasher Digital & CAD Result: Comments: See Note; NOTES: [facility] Imaging Services [address] [place] [address] Breast Imaging Report MR#: [id number] Acct: [id number] Name: MAR MAHARAJ Rep #: [id number] : 1945 F 67 From: Florian Valenzuela MD PCP: Status: REG CLI Exam# [id number] Ordering Dr: Libby Mai DO MAMMOGRAPHY - [...] 20, 2013 at 9: 52:55 AM EDT [phone] Electronically Signed GP/GP If you are the referring physician and would like to consult with the radiologist who provided this interpretation, please contact Florian Valenzuela M.D. at [phone]. If this radiologist is unavailable, you will be directed to another radiologist to assist. If you are a patient with a question regarding this report, please contact your referring physician directly. Professional Interpretation Provided By: [employer], Phone , These documents contain legally protected [...] of these documents. CC: Hari Mai DO Computer Support Specialist Instructor: Signed 20-Jun-2013 Dexa Bone Density Study (HP) Result: Comments: See Note; NOTES: [facility] Imaging Services [address] [place] [address] Bone Density Report MR#: [id number] Acct: [id number] Name: MAR MAHARAJ Rep #: [id number] : 1945 F 67 From: Florian Valenzuela MD PCP: Status: [facility] Study: Dexa Bone Density Study (HP) Date of Exam: 06/20/13 Exam# [id number] Ordering Dr: Libby Mai DO STUDY: DUAL [...] angel luis mbar spine. On the lateral supplemental manager view, there is evidence of loss of [...] June 20, 2013 at 10:14:39 AM EDT [phone] Electronically Signed GP/GP If you are the referring physician and would like to consult with the radiologist who provided this interpretation, please contact Florian Valenzuela M.D. at [phone]. If this radiologist is unavailable, you will be directed to another radiologist to assist. If you are a patient with a question regarding this report, plea se contact your referring physician directly. Professional Interpretation Provided By: [employer], Phone , These documents contain legally protected [...] of these documents. CC: Libby Mai DO Computer Support Specialist Instructor: Signed 06-Jun-2013 Chest without Contrast Result: Comments: See Note; NOTES: [facility] Imaging Services [address] [place] [address] CAT Scan Report MR#: [id number] Acct: [id number] Name: MAR MAHARAJ Rep #: [id number] : 1945 F 67 From: Florian Valenzuela MD PCP: Status: REG CLI Study: Chest without Contrast Date of Exam: 06/06/13 Exam# [id number] Ordering Dr: Libby Mai DO STUDY: CT [...] June 06, 2013 at 10:07:38 AM EDT [phone] Electronically Signed GP/GP If you are the referring physician and would like to consult with the radiologist who provided this interpretation, please contact Florian Valenzuela M.D. at [phone]. If this radiologist is unavailable, you will be directed to another radiologist to assist. If you are a patient with a question regarding this report, please contact your referring physician directly. Professional Interpretation Provided By: [employer], Phone , These documents contain legally protected [...] return or destruction of these documents. CC: Lbiby Mai DO Computer Support Specialist Instructor: Signed 06-Jun-2013 Chest without Contrast Result: Comments: See Note; NOTES: [facility] Imaging Services [address] [place] [address] CAT Scan Report MR#: [id number] Acct: [id number] Name: MAR MAHARAJ Rep #: [id number] : 1945 F 67 From: Florian Valenzuela MD PCP: Status: REG CLI Study: Chest without Contrast Date of Exam: 06/06/13 Exam# [id number] Ordering Dr: Libby Mai DO STUDY: CT [...] June 06, 2013 at 10:07:38 AM EDT [phone] Electronically Signed GP/GP If you are the referring physician and would like to consult with the radiologist who provided this interpretation, please contact Florian Valenzuela M.D. at [phone]. If this radiologist is unavailable, you will be directed to another radiologist to assist. If you are a patient with a question regarding this report, please contact your referring physician directly. Professional Interpretation Provided By: [employer], Phone , These documents contain legally protected [...] of these documents. CC: Libby Mai DO Computer Support Specialist Instructor: Signed Immunization Name Dates Details Pneumococcal (2 years and up) on: 2016 Comments: [facility] Family History Unknown Family Member Name Dates Details Father Comments: COPD, Smoker - Status: Active Mother Comments: Breast CA, DM, HTN, Lung CA - Status: Active Social History Name Dates Details Alcohol Use Comments: Occasional alcohol use Status: Active Caffeine Use Comments: 2 QD Status: Active Current Work/Study Status Comments: Part-time, [employer] Status: Active Exercise History Comments: Light Status: Active Living Situation Comments: Lives alone Status: Active No Drug Use Status: Active Non Smoker/No Tobacco Use Comments: 04/20/11 Status: Active 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, [address] GAP 11 (Normal) Range: 5-15 CO2 28.0 [...] A.D.A. criteria.Please note revised GLUCOSE reference range wunrcednk82/02/2018. :32 HgA1C , Office (25037) HgA1C , Office 6.3 % (Normal) Range: 4.6 - 7.1 :32 Blood Glucose , Office (47233) Blood Glucose , Office 133 (Normal) :16 Miscellaneous Lab Procedure Comments: Comments: [id number]; URINE TOX; RUN LOWEST TEST IN LABCOTest(s) Ordered: [id number]; URINE TOX; RUN LOWEST TEST IN [facility] [address] [place], [place], [id number] [facility] Comments: [id number] 6+OXYCODONE-BUND (ng/mL)DRUG RESULT SCREEN CUTOFF____ Amphetamines,Urine Negat LAB (Normal) ananth ng/mL 1000Amphetamine test includes Amphetamine and Methamphetamine.Barbiturates Negative ng/mL 200Benzodiazepines Negative ng/mL 200Cannabinoid TEST Negative ng/mL 20Cocaine (Metab) Negative ng/mL 300Opiates Negative ng/mL 300 Opiates test includes Codeine, Morphine, Hydromorphone, [place] codone.Oxycodone/Oxymorphone,Urine Negative ng/mL 300 Test includes Oxydodone and Oxymorphone. TESTING PERFORMED AT [facility]. ORIGINAL REPORT ON FILE IN LAB CONTAINS ADDITIONAL TEST SITE INFORMATION. :16 Urine Drug Screen (VISTA) Comments: Comments: [id number]; URINE TOX; RUN LOWEST TEST IN LABCORPList of Drugs Taken or Suspected? [facility] [address] [place], [address] THC NEGATIVE (Normal) PCP NEGATIVE [...] TESTING MUST BE ORDERED SEPARATELY. USE TESTMNEMONIC: [facility] :28 Microscopic Examination Comments: PATIENT WAS FASTINGPERFORMED BY: LabCoHackettstown Medical CenterKwtexv7139 [facility] [id number] Bacteria Few (Normal) Mucus Threads Present (Normal) Epithelial Cells (non renal) 0-10 {/hpf} (Normal) Range: 0 - 10 RBC 0-2 {/hpf} (Normal) Range: 0 - 2 WBC 0-5 {/hpf} (Normal) Range: 0 - 5 :52 Basic Metabolic Profile (BMP) Comments: [facility] [address] [place], [place], [address] GAP 10 (Normal) Range: 5-15 CO2 27.0 [...] A.D.A. criteria.Please note revised GLUCOSE reference range qbjjghlqa61/02/2018. 07-May-20188:52 CBC W/Diff, Automated Comments: [facility] [address] [place], [place], [address] Absolute Lymph 1.75 {X10_3/ul} (Normal) Range: 0.83-4.51 [...] Range: 4.4-11.0 :05 CBC W/Diff, Automated Comments: [facility] [address] [place], [place], [address] Absolute Lymph 1.82 {X10_3/ul} (Normal) Range: 0.83-4.51 [...] Range: 4.4-11.0 :05 Comprehensive Metabolic Profil Comments: [facility] [address] [place], [address] GAP 12 (Normal) Range: 5-15 CO2 28.0 [...] A.D.A. criteria.Please note revised GLUCOSE reference range jioecdlli45/02/2018. 24-Kbh-56343:28 CALCIFEDIOL (32929) Comments: PATIENT WAS FASTINGPERFORMED BY: LabCoHackettstown Medical CenterRcwjap6809 [facility] [id number] Vitamin D, 25-Hydroxy 45.7 ng/mL (Normal) Range: 30.0-100.0 Comments: Vitamin D deficiency has been defined by the [place] ofMedicine and an Endocrine Society practice guideline as alevel of serum 25-OH vitamin D less than 20 ng/mL (1,2).The Endocrine Society went on to further define vitamin Dinsufficiency as a level between 21 and 29 ng/mL (2).1. IOM (Fisk of Medicine). 2010. Dietary reference intakes for calcium and D. [place]: The National Academies Press.2. Delma MF, Mckenna ABDALLA, Dane MACKENZIE, et al. Evaluation, treatment, and prevention of vitamin D deficiency: an Endocrine Society clinical practice guideline. JCEM. 2010; 96(7):1911-30. :28 VITAMIN B-12 (CYANOCOBALAMIN) Comments: PATIENT WAS FASTINGPERFORMED BY: [employer] Wirelessin [place] [id number] (73259) Vitamin B12 507 pg/mL (Normal) Range: 232-1245 :28 TSH (95749) Comments: PATIENT WAS FASTINGPERFORMED BY: Retellityrp Eheabo[address] [facility] [place] [id number] TSH 0.816 {uIU/mL} (Normal) Range: 0.450-4.500 :28 URINALYSIS, W/ MICRO (99542) Comments: PATIENT WAS FASTINGPERFORMED BY: [employer] [facility]eticsin [place] [id number] Microscopic Examination See below: (Normal) Comments: Microscopic was indicated and was performed. Nitrite, Urine Negative (Normal) Urobilinogen,Semi-Qn 0.2 mg/dL (Normal) Range: 0.2-1.0 Bilirubin Negative (Normal) Occult Blood Negative (Normal) Ketones Negative (Normal) Glucose Negative (Normal) Protein Negative (Normal) WBC Esterase 1+ (Abnormal) Appearance Clear (Normal) Urine-Color Yellow (Normal) pH 7.0 (Normal) Range: 5.0-7.5 Specific Troy 1.017 (Normal) Range: 1.005-1.030 :28 MICROALBUMIN: CREATININE RATIO Comments: PATIENT WAS FASTINGPERFORMED BY: Cub[employer] Ftphtq0926 [facility] [id number] (99908) AND (65734) Alb/Creat Ratio 9.9 {mg/g_creat} (Normal) Range: 0.0-30.0 Albumin, Urine 7.9 ug/mL (Normal) Creatinine, Urine 79.8 mg/dL (Normal) :28 METABOLIC PANEL, COMPREHENSIVE Comments: PATIENT WAS FASTINGPERFORMED BY: LabDanforth Pewterers6370 [facility] [id number] (45530) ALT (SGPT) 13 [iU]/L (Normal) Range: 0-32 [...] 8-27 Glucose 142 mg/dL (Abnormal) Range: 65-99 08-Ytc-41688:28 LIPID PANEL (23232) Comments: PATIENT WAS FASTINGPERFORMED BY: LabCoCrownpoint Health Care FacilityDbhzax1887 [facility] [id number] LDL/HDL Ratio 3.2 {ratio} (Normal) Range: 0.0-3.2 Comments: LDL/HDL Ratio Men Women 1/2 Avg.Risk 1.0 1.5 Av g.Risk 3.6 3.2 2X Avg.Risk 6.2 5.0 3X Avg.Risk 8.0 6.1 LDL Cholesterol Calc 143 mg/dL (Abnormal) Range: 0-99 VLDL Cholesterol Peg 29 mg/dL (Normal) Range: 5-40 HDL Cholesterol 45 mg/dL (Normal) Triglycerides 143 mg/dL (Normal) Range: 0-149 Cholesterol, Total 217 mg/dL (Abnormal) Range: 100-199 38-Ifc-83774:28 CBC W/AUTO DIFF WBC (13947) Comments: PATIENT WAS FASTINGPERFORMED BY: LabCoHackettstown Medical CenterPgochm3230 [facility] [id number] Immature Grans (Abs) 0.0 {x10E3/uL} (Normal) Range: [...] (Normal) Range: 3.4-10.8 :43 HgA1C , Office (34438) HgA1C , Office 6.3 % (Normal) Range: 4.6 - 7.1 :43 Blood Glucose , Office (14802) Blood Glucose , Office 105 (Normal) :55 MAGNESIUM (15572) Comments: PATIENT NOT FASTINGPERFORMED BY: [facility] Xthfks6628 [facility] [id number] Magnesium 1.6 mg/dL (Normal) Range: 1.6-2.3 :55 POTASSIUM SERUM (31240) Comments: PATIENT NOT FASTINGPERFORMED BY: [facility] Iooldt8833 [facility] [id number]; ov 02/19 Potassium 4.8 mmol/L (Normal) Range: 3.5-5.2 :59 CBC W/Diff, Automated Comments: [facility] [address] [place], [place], [address] Absolute Lymph 2.55 {X10_3/ul} (Normal) Range: 0.83-4.51 [...] Range: 4.4-11.0 07-Dec-20178:59 Comprehensive Metabolic Profil Comments: [facility] [address] [place], [address] GAP 8 (Normal) Range: 5-15 CO2 32.0 mmol/L (Normal) Range: 21.0-32.0 CL 100 mmol/L (Normal) Range: 98-107 K 3.4 mmol/L (Abnormal) Range: 3.5-5.1 NA 140 mmol/L (Normal) Range: 136-145 T BILI 0.40 mg/dL (Normal) Range: 0.20-1.00 ALT 21 U/L (Normal) Range: 13-56 Comments: Please note revised ALT reference range mitbcrkwd48/28/2018. ALK P 76 U/L (Normal) Range: 45-117 [...] A.D.A. criteria.Please note revised GLUCOSE reference range mhyqnsrek17/02/2018. 2-Abh-099567:40 Microscopic Examination Comments: PATIENT WAS FASTINGPERFORMED BY: [employer] [address] [id number] BY: [employer]70 [facility] [facility] Hospital[facility] [place] [id number] Bacteria Few (Normal) Epithelial Cells (non renal) 0-10 {/hpf} (Normal) Range: 0 - 10 RBC None seen {/hpf} (Normal) Range: 0 - 2 WBC 0-5 {/hpf} (Normal) Range: 0 - 5 7-Afv-272785:40 VITAMIN B-12 (CYANOCOBALAMIN) Comments: PATIENT WAS FASTINGPERFORMED BY: [employer] [address] [id number] BY: [employer] [facility] [place] [id number] (77484) Vitamin B12 470 pg/mL (Normal) Range: 232-1245 1-Qyx-188386:40 CALCIFIDIOL (67724) VIT D Comments: PATIENT WAS FASTINGPERFORMED BY: [employer] [address] [id number] BY: [employer] Cytometerslin6370 [address] [facility] [id number] 25 Vitamin D, 25-Hydroxy 36.1 ng/mL (Normal) Range: 30.0-100.0 Comments: Vitamin D deficiency has been defined by the Fisk ofMedicine and an Endocrine Society practice guideline as alevel of serum 25-OH vitamin D less than 20 ng/mL (1,2).The Endocrine Society went on to further define vitamin Dinsufficiency as a level between 21 and 29 ng/mL (2).1. IOM (Fisk of Medicine). 2010. Dietary reference intakes for calcium and D. [place]: The National Academies Press.2. Delma MF, Mckenna ABDALLA, Dane MACKENZIE, et al. Evaluation, treatment, and prevention of vitamin D deficiency: an Endocrine Society clinical practice guideline. JCEM. 2010; 96(7):1911-30. 7-Gal-441615:40 LIPOPROTEIN, BLD, BY NMR Comments: PATIENT WAS FASTINGPERFORMED BY: BN [facility] Nrkqkmcaqd5812 [facility] [id number] BY: CB [facility] Gjlhwn2355 [facility] [id number] (68873) LP-IR Score 80 (Abnormal) Comments: INSULIN RESISTANCE MARKER <--Insulin Sensitive Insulin Resistant--> Percentile in Reference PopulationInsulin Resistance ScoreLP-IR Score Low 25th 50th 75th High <27 27 45 63 >63LP-IR Score is inaccurate if patient is non-fasting. .The LP-IR score is a laboratory developed i [facility] that has beenassociated with insulin [...] were developed and their performance characteristicsdetermined by [employer]. These assays have not been cleared by [...] 1600 - 2000 Very High > 2000 9-Gmm-515420:40 TSH (15636) Comments: PATIENT WAS FASTINGPERFORMED BY: [employer] [place] [address] [id number] BY: Cubbying Penqho1806 [facility] [id number] TSH 1.780 {uIU/mL} (Normal) Range: 0.450-4.500 8-Rjj-289873:40 URINALYSIS, W/ MICRO Comments: PATIENT WAS FASTINGPERFORMED BY: Neronote[address] [id number] BY: Cubby[employer] Ouuuwm0283 [facility] [id number] (65780) Microscopic Examination See below: (Normal) Comments: Microscopic was indicated and was performed. Microscopic Examination MICRON (Normal) Comments: Microscopic follows if indicated. Nitrite, Urine Negative (Normal) Urobilinogen,Semi-Qn 0.2 mg/dL (Normal) Range: 0.2-1.0 Bilirubin Negative (Normal) Occult Blood Negative (Normal) Ketones Negative (Normal) Glucose Negative (Normal) Protein Negative (Normal) WBC Esterase Negative (Normal) Appearance Clear (Normal) Urine-Color Yellow (Normal) pH 7.5 (Normal) Range: 5.0-7.5 Specific [place] 1.016 (Normal) Range: 1.005-1.030 5-Gqh-139757:40 MICROALBUMIN: CREATININE Comments: PATIENT WAS FASTINGPERFORMED BY: [employer] [id number] BY: SymonicsHeidi Ville 5675070 [facility] [id number] RATIO (79832) AND (28978) Alb/Creat Ratio 8.6 {mg/g_creat} (Normal) Range: 0.0-30.0 Albumin, Urine 4.7 ug/mL (Normal) Creatinine, Urine 54.7 mg/dL (Normal) 7-Kgu-488294:40 METABOLIC PANEL, Comments: PATIENT WAS FASTINGPERFORMED BY: [employer] [id number] BY: SymonicsHackettstown Medical CenterLvpkab0046 [facility] [id number] COMPREHENSIVE (32919) ALT (SGPT) 17 [iU]/L (Normal) Range: 0-32 [...] 8-27 Glucose 99 mg/dL (Normal) Range: 65-99 2-Cwp-730117:40 CBC W/AUTO DIFF WBC Comments: PATIENT WAS FASTINGPERFORMED BY: BN [facility] Slhetogeha3733 [facility] [id number] BY: CB [facility] Yblemc7015 [facility] [id number]; ov tomrrow 12/07 (73949) Immature Grans (Abs) 0.0 {x10E3/uL} (Normal) Range: [...] (Normal) Range: 3.4-10.8 :26 HgA1C , Office (57086) HgA1C , Office 6.7 % (Normal) Range: 4.6 - 7.1 :26 Blood Glucose , Office (04599) Blood Glucose , Office 141 (Normal) 8-Esq-132361:10 CBC W/Diff, Automated Comments: [facility] [address] [place], [address] Absolute Lymph 2.70 {X10_3/ul} (Normal) Range: 0.83-4.51 [...] 4.2-5.4 WBC 7.1 K/mm3 (Normal) Range: 4.4-11.0 1-Gro-207863:10 Comprehensive Metabolic Profil Comments: [facility] [address] [place], [place], [address] GAP 10 (Normal) Range: 5-15 CO2 28.0 mmol/L (Normal) Range: 21.0-32.0 CL 100 mmol/L (Normal) Range: 98-107 K 3.8 mmol/L (Normal) Range: 3.5-5.1 NA 138 mmol/L (Normal) Range: 136-145 T BILI 0.40 mg/dL (Normal) Range: 0.20-1.00 ALT 16 U/L (Normal) Range: 13-56 Comments: Please note revised ALT reference range ucmvzkaql49/28/2018. ALK P 81 U/L (Normal) Range: 45-117 [...] 126 mg/dLsuggests DIABETES MELLITUS per A.D.A. criteria. 6-Use-388249:10 CRP Comments: [facility] [address] [place], [address] C-REACTIVE PROT 4.26 mg/L (Abnormal) Range: 0.0-3.0 Comments: C-Reactive Protein (CRP) provides useful information for thediagnosis, therapy and monitoring of inflammatory processesand associated diseases. For the evaluation of Relative Riskfor Cardiovascular Dise ase, a High Sensitivity CRP (HSCRP)should be ordered. 1-Fsj-232909:10 Erythrocyte Sed Rate Comments: [facility] [address] [place], [address] SED RATE 7 mm/h (Normal) Range: 0-30 07-Sep-20178:49 Rapid Flu (90667 x 2) Influenza A Ag Positive (Normal) Comments: A, no flu shot 2-Ujo-284656:31 Rapid Strep Test, Office (21599) Rapid Strep Test, Office Negative (Normal) :51 THROAT CULTURE (85920) Comments: PATIENT NOT FASTINGPERFORMED BY: [employer] [facility] HospitalNtractiveAlleghany Health [id number] Information: SRC:TH Result 1 RRF (Normal) Comments: Routine respiratory vicente Upper Respiratory Final report Culture (Normal) Lipase, Serum 11 U/L (Abnormal) Comments: PATIENT NOT FASTINGPERFORMED BY: [employer]6370 [facility] [id number] :30 Range: 14-85 Written Authorization WAR (Normal) Comments: PATIENT NOT FASTINGPERFORMED BY: Retellity Ocvumy2263 [facility] [id number] :30 Comments: Written Authorization Received.Authorization received from original requistion [id number] by Ann Hartley :30 METABOLIC PANEL, COMPREHENSIVE Comments: stat; PATIENT NOT FASTINGPERFORMED BY: Retellity Jdvsfp8105 [facility] [id number] (99415) ALT (SGPT) 5 [iU]/L (Normal) Range: 0-32 [...] Glucose, Serum 99 mg/dL (Normal) Range: 65-99 5-Fex-943631:30 CBC W/AUTO DIFF WBC (52497) Comments: stat; PATIENT NOT FASTINGPERFORMED BY: [facility] Ovsffg8184 [facility] [id number] Immature Grans (Abs) 0.0 {x10E3/uL} (Normal) Range: [...] 3.77-5.28 WBC 7.3 {x10E3/uL} (Normal) Range: 3.4-10.8 6-Ish-877234:31 Rapid Flu (66580 x 2) Influenza A Ag Negative (Normal) 92-Skt-839604:28 HgA1C , Office (48551) HgA1C , Office 6.3 % (Normal) Range: 4.6 - 7.1 64-Yuq-035324:28 Blood Glucose , Office (08715) Blood Glucose , Office 133 (Normal) 51-Zss-506645:27 VITAMIN B-12 (CYANOCOBALAMIN) Comments: PATIENT NOT FASTINGPERFORMED BY: Retellity [employer] [facility] HospitalNtractiveAlleghany Health [id number] (97316) Vitamin B12 258 pg/mL (Normal) Range: 211-946 29-Gmo-352068:27 MAGNESIUM (30582) Comments: PATIENT NOT FASTINGPERFORMED BY: [facility] HospitalNtractiveAllegh[facility] [id number] Magnesium, Serum 1.6 mg/dL (Normal) Range: 1.6-2.3 59-Vod-044085:27 Metabolic Panel, Basic Comments: PATIENT NOT FASTINGPERFORMED BY: Retellity meinKaufAlleghany Health [id number] ([id number]) Calcium, Serum 9.3 mg/dL (Normal) Range: 8.7-10.3 [...] Urinalysis, Complete Comments: How was Urine Obtained? CLIN TECH TO [facility] Quikuclgbk[address] [place], [place], [id number] MUCUS, URINE 0 SEEN {/hpf} (Normal) BACTERIA [...] Yellow (Normal) :15 CBC W/Diff, Automated Comments: [facility] Fujmquuzkc4703 [facility] [address]. [place], [place], [address] Absolute Lymph 1.41 {X10_3/ul} (Normal) Range: 0.83-4.51 [...] 4.2-5.4 WBC 7.7 K/mm3 (Normal) Range: 4.4-11.0 03-Pny-773185:15 Comprehensive Metabolic Profil Comments: [facility] [address]vlklj[address]. [place], [place], [address] GAP 6 (Normal) Range: 5-15 CO2 33.0 [...] 7-18 GLU 101 mg/dL (Normal) Range: 70-110 46-Bal-678397:09 CBC W/Diff, Automated Comments: [facility] Eloioxendf[address] [place], [address] ; another doc Absolute Lymph 1.90 {X10_3/ul} [...] 4.2-5.4 WBC 6.6 K/mm3 (Normal) Range: 4.4-11.0 62-Jyn-931719:09 Comprehensive Metabolic Profil Comments: [facility] Qq[address]dywdozc5[address] [place], [place], [address] GAP 10 (Normal) Range: 5-15 CO2 25.0 [...] 126 mg/dLsuggests DIABETES MELLITUS per A.D.A. criteria. 62-Ueg-545887:09 Lipase Comments: [facility] Hawofgcsto29[address] [place], [address] LIPASE 42 U/L (Abnormal) Range: 73-393 0-Azo-519935:19 Metabolic Panel, Comprehensive Comments: PATIENT NOT FASTINGPERFORMED BY: [facility] Uzbear6825 [facility] [id number] ([id number]) ALT (SGPT) 11 [iU]/L (Normal) Range: 0-32 [...] Glucose, Serum 108 mg/dL (Abnormal) Range: 65-99 4-Udd-978262:19 HGB A1C (34820) Comments: PATIENT NOT FASTINGPERFORMED BY: [facility]6370 [facility] [id number] Hemoglobin A1c 5.9 % (Abnormal) Range: 4.8-5.6 Comments: . Pre-diabetes: 5.7 - 6.4 Diabetes: >6.4 Glycemic control for adults with diabetes: <7.0 :19 MAGNESIUM (83732) Comments: PATIENT NOT FASTINGPERFORMED BY: [place] 0979470 [facility] [id number] Magnesium, Serum 1.7 mg/dL (Normal) Range: 1.6-2.3 :19 CBC, Platelets & Auto Diff Comments: PATIENT NOT FASTINGPERFORMED BY: [facility]6370 [facility] [id number] (51302) Immature Grans (Abs) 0.0 {x10E3/uL} (Normal) Range: [...] 3.77-5.28 WBC 9.5 {x10E3/uL} (Normal) Range: 3.4-10.8 57-Wdb-126638:41 Comprehensive Metabolic Profil Comments: REDRAW. PREVIOUS SPECIMEN REJECTED DUE TOHEMOLYSIS. 04/28/17 1128 Aura Ch.[facility] [address] [place], [place], [address] GAP 6 (Normal) Range: 5-15 CO2 25.0 [...] 126 mg/dLsuggests DIABETES MELLITUS per A.D.A. criteria. 51-Fiu-523393:05 Urinalysis, Complete Comments: Order Date: 04/28/17Has pt arrived? YHow was Urine Obtained? CAT[facility] SPECIMENWJ.W. [facility] [address]jptoxzsns24[address] [place], [place], [phone] AMORPHOUS 1+ (Normal) MUCUS, URINE 0 SEEN [...] CLARITY Sl. Cloudy (Normal) COLOR Yellow (Normal) 72-Ysv-022922:00 CBC W/Diff, Automated Comments: [facility] Nczdjcuucc80[address] [place], [address] Absolute Lymph 1.58 {X10_3/ul} (Normal) [...] 4.2-5.4 WBC 25.0 K/mm3 (Abnormal) Range: 4.4-11.0 99-Pug-267319:00 Lactic Acid Comments: Yes/No query for Sepsis Lactate Rule [facility] Uxwcwljgfs[address] [place], [address] LACTIC ACID 1.6 mmol/L (Normal) Range: 0.4-2.0 07-Kyk-790918:00 Partial Thromboplast Time Comments: [facility] Osl[address]qszjdf[address] [place], [address] PTT 22.4 s (Abnormal) Range: 24.1-36.2 23-Kod-115244:00 Prothrombin Time w/INR Comments: [facility] Aummnndwzp[address] [place], [address] INR 1.0 (Normal) PROTIME 12.8 s (Normal) Range: 11.7-14.9 93-Bgt-26435:50 Miscellaneous Lab Procedure Comments: Comments: [id number]; URINE TOX; RUN LOWEST TEST IN LABCORPTest(s) Ordered: [id number]; URINE TOX; RUN LOWEST TEST IN [facility] Cmenvltitt5919 [place] [place], [id number] [facility] Comments: [id number] 6+OXYCODONE-BUND (ng/mL)DRUG RESULT SCREEN CUTOFF____ Amphetamines,Urine Negat LAB (Normal) ananth ng/mL 1000Amphetamine test includes Amphetamine and Methamphetamine.Barbiturates Negative ng/mL 200Benzodiazepines Negative ng/mL 200Cannabinoid TEST Negative ng/mL 20Cocaine (Metab) Negative ng/mL 300Opiates Positive ng/mL 300 Opiates test includes Codeine, Morphine, Hydromorphone, [place] codone.Please Note:Confirmation performed by Mass SpectrometryCodeine Negative 300Morphine Positive Morphine Confirm >3000 ng/mL 300Hydromor phone Negative 300Hydrocodone Negative 300Oxycodone/Oxymorphone,Urine Negative ng/mL 300 Test includes Oxydodone and Oxymorphone. TESTING PERFORMED AT [facility]. ORIGINAL REPORT ON FILE IN LAB CONTAINS ADDITIONAL TEST SITE INFORMATION. :50 Urine Drug Screen (VISTA) Comments: Comments: [id number]; URINE TOX; RUN LOWEST TEST IN LABCOList of Drugs Taken or Suspected? [facility] Fhazvzdttt8335 [address] [place], [phone] THC NEGATIVE (Normal) PCP NEGATIVE (Normal) OPIATES [...] TESTING MUST BE ORDERED SEPARATELY. USE TESTMNEMONIC: [facility] :00 Basic Metabolic Profile (BMP) Comments: 'TROP' Serial specimen #1, #2, #3, or #4: 1[facility] Ugfvtpsqij07[address] [place], [place], [address] GAP 10 (Normal) Range: 5-15 CO2 28.0 [...] A.D.A. criteria. :00 CBC W/Diff, Automated Comments: [facility] Xgdfucyzvy[address] [place], [place], [address] ; another doc Absolute Lymph 1.20 {X10_3/ul} [...] 4.2-5.4 WBC 4.0 K/mm3 (Abnormal) Range: 4.4-11.0 78-Yzk-58421:00 Lipase Comments: 'TROP' Serial specimen #1, #2, #3, or #4: [address] [place] [address] [place], [address] LIPASE 82 U/L (Normal) Range: 73-393 99-Tfo-12234:00 Liver Profile Comments: 'TROP' Serial specimen #1, #2, #3, or #4: [address] [place] [address] Jrnwufueqq9[address] [place], [address] D BILI 0.12 mg/dL (Normal) Range: 0.00-0.30 T BILI 0.50 mg/dL (Normal) Range: 0.20-1.00 ALT 13 U/L (Normal) Range: 12-78 ALK P 58 U/L (Normal) Range: 45-117 AST 6 U/L (Abnormal) Range: 15-37 GLOB 3.4 g/dL (Normal) Range: 2.3-3.5 ALB 3.7 g/dL (Normal) Range: 3.4-5.0 T PROT 7.1 g/dL (Normal) Range: 6.4-8.2 09-Foe-00238:00 Troponin-I Comments: 'TROP' Serial specimen #1, #2, #3, or #4: 1[facility] Cxnslrljvy7[address] [place], [address] TROPONIN-I < 0.02 ng/mL (Normal) Comments: TROPONIN-I EXPECTED VALUES <0.05 NEGATIVE 0.06 - 0.59 AT RISK OF [place] > OR = 0.60 SUGGEST W[place] 91-Dvt-210172:01 Renal Profile Comments: Order Date: 01/17/17Order Info: [id number] - RENALOrder Info: [id number] - MGOrder Date: 01/17/17Order Info: [id number] - MGSum[facility] Rvvjvexnco[address] [place], [phone] CO2 31.0 mmol/L (Normal) Range: 21.0-32.0 CL [...] 7-18 GLU 102 mg/dL (Normal) Range: 70-110 45-Bgd-838867:01 MAGNESIUM (34794) Comments: Order Date: 01/17/17Order Info: [id number] - RENALOrder Info: [id number] - MGOrder Date: 01/17/17Order Info: [id number] - MGWooMorrow [facility] Hospital [address]wrzhev[address] [place], [phone] MG 1.5 mg/dL (Abnormal) Range: 1.8-2.4 Comments: Moderate Hemolysis, Result may be falsely increased. 50-Fzf-224793:25 CBC W/Diff, Automated Comments: [facility] [address] [place], [address] Absolute Lymph 1.62 {X10_3/ul} (Normal) Range: 0.83-4.51 [...] 4.2-5.4 WBC 10.3 K/mm3 (Normal) Range: 4.4-11.0 37-Oup-991978:25 Comprehensive Metabolic Profil Comments: 'TROP' Serial specimen #1, #2, #3, or #4: [address] [place] [address] Xqzypvvahj7[address] [place], [place], [address] GAP 10 (Normal) Range: 5-15 CO2 29.0 [...] <126 mg/dLsuggests IMPAIRED HOMEOSTASIS per A.D.A. criteria. 83-Mkz-347875:25 Lipase Comments: 'TROP' Serial specimen #1, #2, #3, or #4: [address] [place] [address] [address]jzuflixxc[address] [place], [place], [address] LIPASE 52 U/L (Abnormal) Range: 73-393 43-Lod-545190:25 Partial Thromboplast Time Comments: [facility] Tpwozcosly[address] [place], [place], [address] PTT 32.0 s (Normal) Range: 24.1-36.2 76-Vep-637591:25 Prothrombin Time w/INR Comments: [facility] Hdmdnkpvqz65[address] [place], [place], [address] INR 1.0 (Normal) PROTIME 13.1 s (Normal) Range: 11.7-14.9 40-Kck-590379:25 Troponin-I Comments: 'TROP' Serial specimen #1, #2, #3, or #4: [address] [place] [address] Estmqvqdjp9[address] [place], [place], [address] TROPONIN-I 0.93 ng/mL (Abnormal) Comments: Critical Result(s) Called INDRA Tyson at: 12:03:56012/19/2016 by: JAYDA CRAIG TROPONIN-I EXPECTED VALUES <0.05 NEGATIVE 0.06 - 0.59 AT RISK OF [place] > OR = 0.60 SUGGEST W[place] 05-Gdi-595780:40 Urinalysis, Complete Comments: How was Urine Obtained? CLIN TECH TO [facility] S[address]aypfedl[address] [place], [phone] MUCUS, URINE 0 SEEN {/hpf} (Normal) BACTERIA [...] CLARITY Sl. Cloudy (Normal) COLOR Yellow (Normal) 39-Lpt-880641:09 CBC W/Diff, Automated Comments: [facility] Alpmtkuxvt3[address] [place], [address] Absolute Lymph 1.33 {X10_3/ul} (Normal) Range: 0.83-4.51 [...] 4.2-5.4 WBC 5.7 K/mm3 (Normal) Range: 4.4-11.0 45-Pya-678257:09 Comprehensive Metabolic Profil Comments: 'TROP' Serial specimen #1, #2, #3, or #4: 1[facility] [address]jxdftiw[address] [place], [place], [address] GAP 8 (Normal) Range: 5-15 CO2 33.0 [...] <126 mg/dLsuggests IMPAIRED HOMEOSTASIS per A.D.A. criteria. 69-Wsr-934206:09 Lactic Acid Comments: [facility] [address]ij[address]xmlr[address] [place], [address] LACTIC ACID 1.5 mmol/L (Normal) Range: 0.4-2.0 24-Zbn-072508:09 Lipase Comments: 'TROP' Serial specimen #1, #2, #3, or #4: [address] [place] [address] [address]usszilany[address] [place], [address] LIPASE 40 U/L (Abnormal) Range: 73-393 :09 Partial Thromboplast Time Comments: [facility] S[address]atvys[address] [place], [address] PTT 38.3 s (Abnormal) Range: 24.1-36.2 :09 Prothrombin Time w/INR Comments: [facility] [address] [place], [address] INR 1.3 (Normal) PROTIME 15.8 s (Abnormal) Range: 11.7-14.9 :09 Troponin-I Comments: 'TROP' Serial specimen #1, #2, #3, or #4: [address] [place] [address] [address]axeapnb37[address] [place], [address] TROPONIN-I < 0.02 ng/mL (Normal) Comments: TROPONIN-I EXPECTED VALUES <0.05 NEGATIVE 0.06 - 0.59 AT RISK OF [place] > OR = 0.60 SUGGEST W[place] 80-Aiy-647679:52 Potassium Comments: [facility] Dnchygfmgh9[address] DownseJoanne [place], [address](886 K 3.4 mmol/L (Abnormal) Range: 3.5-5.1 55-Zar-09690:10 Basic Metabolic Profile (BMP) Comments: DR AVINA ORDERED: BMP, CBC, MRSADR.NOELLE ORDERED: [facility] [address]vilzweprb[address] [place], [address] GAP 12 (Normal) Range: 5-15 CO2 27.0 mmol/L (Normal) Range: 21.0-32.0 CL 99 mmol/L (Normal) Range: 98-107 K 2.7 mmol/L (Abnormal) Range: 3.5-5.1 Comments: Critical Result(s) Called at: 10:30:38 11/14/2016 by:Aura Ch to [facility] NA 138 mmol/L (Normal) Range: 136-145 [...] 126 mg/dLsuggests DIABETES MELLITUS per A.D.A. criteria. 59-Ziu-06813:10 CBC-Complete Blood Cnt No Diff Comments: DR AVINA ORDERED: BMP, CBC, MRSADRNIGEL ORDERED: ESTEBAN AVINA ORDERED: BMP, CBC, HANSADRNIGEL ORDERED: [facility] Ebvosurgkw[address] [facility] [place], [address] MPV 10.8 fL (Normal) Range: 6.2-12.0 PLT [...] 4.2-5.4 WBC 7.1 K/mm3 (Normal) Range: 4.4-11.0 69-Lby-83409:10 MRSA/SAID SCREEN Comments: [facility] Qaxmzemjyx[address] [place], [address] ; another doc MRSA+SAID SCRN See Note (Normal) Comments: DR AVINA ORDERED: BMP, CBC, MRSA ORDERED: K MRSA/SAID SCRNS. AUREUS S. aureus NegativeMRSA MRSA Negative :09 MAGNESIUM (43900) Comments: PATIENT NOT FASTINGPERFORMED BY: [employer]6370 [facility] [id number] Magnesium, Serum 1.7 mg/dL (Normal) Range: 1.6-2.3 :09 Metabolic Panel, Basic Comments: PATIENT NOT FASTINGPERFORMED BY: [employer] [facility] Mscjxo0629 [facility] [id number] ([id number]) Calcium, Serum 8.7 mg/dL (Normal) Range: 8.7-10.3 [...] Glucose, Serum 97 mg/dL (Normal) Range: 65-99 72-Vza-918871:45 Urinalysis, Complete Comments: How was Urine Obtained? CLIN TECH TO [facility]um[facility] Tgncetncsz8[address] [place], [address] MUCUS, URINE RARE {/hpf} (Normal) BACTERIA RARE [...] (Normal) CLARITY Cloudy (Normal) COLOR Yellow (Normal) 54-Oup-701394:53 CBC W/Diff, Automated Comments: [facility] Wwdnwruoie[address] [place], [place], [address] Absolute Lymph 1.08 {X10_3/ul} (Normal) Range: 0.83-4.51 [...] 4.2-5.4 WBC 6.1 K/mm3 (Normal) Range: 4.4-11.0 79-Zkg-368851:53 Comprehensive Metabolic Profil Comments: [facility] Soozdojjxc0[address] [place], [address] GAP 12 (Normal) Range: 5-15 CO2 27.0 [...] per A.D.A. criteria. :53 Lactic Acid Comments: [facility] [address]byzdfh[address] [place], [place], [address] LACTIC ACID 2.2 mmol/L (Abnormal) Range: 0.4-2.0 :53 Partial Thromboplast Time Comments: [facility] [address]alf[address]oyboz[address] [place], [address] PTT 32.1 s (Normal) Range: 24.1-36.2 :53 Prothrombin Time w/INR Comments: [facility] Nhmigrjtey9[address] [place] [place], [place], [address] INR 1.0 (Normal) PROTIME 13.2 s (Normal) Range: 11.7-14.9 :54 Basic Metabolic Profile (BMP) Comments: [facility] Ptchffvckx8582 [address] [place], [place], [address] GAP 10 (Normal) Range: 5-15 CO2 29.0 [...] :54 CBC-Complete Blood Cnt No Diff Comments: [facility] [address] [place], [place], [address] MPV 10.1 fL (Normal) Range: 6.2-12.0 PLT [...] (Normal) Range: 4.4-11.0 :54 Hemoglobin A1c Comments: [facility] Bmzsvopzdz98[address] [place], [place], [address] HGB A1C 6.4 % (Abnormal) Range: 4.2-6.3 :54 Liver Profile Comments: [facility] Lhxrkjbnyy36[address] [place], [place], [address] D BILI 0.27 mg/dL (Normal) Range: 0.00-0.30 T BILI 0.80 mg/dL (Normal) Range: 0.20-1.00 ALT 12 U/L (Normal) Range: 12-78 ALK P 82 U/L (Normal) Range: 45-117 AST 10 U/L (Abnormal) Range: 15-37 GLOB 3.5 g/dL (Normal) Range: 2.3-3.5 ALB 3.2 g/dL (Abnormal) Range: 3.4-5.0 T PROT 6.7 g/dL (Normal) Range: 6.4-8.2 :54 MRSA/SAID SCREEN Comments: [facility] [address] [place], [address] MRSA+SAID SCRN See Note (Normal) Comments: MRSA/SAID SCRNS. AUREUS S. aureus NegativeMRSA MRSA Negative :54 Partial Thromboplast Time Comments: [facility] [address] [place], [place], [address] PTT 40.7 s (Abnormal) Range: 24.1-36.2 :54 Prothrombin Time w/INR Comments: [facility] Mt[address] [place], [address] INR 1.1 (Normal) PROTIME 14.3 s (Normal) Range: 11.7-14.9 :55 CBC W/Diff, Automated Comments: [facility] [address] [place], [address] Absolute Lymph 1.18 {X10_3/ul} (Normal) [...] 4.2-5.4 WBC 13.8 K/mm3 (Abnormal) Range: 4.4-11.0 27-Oja-12565:55 Comprehensive Metabolic Profil Comments: [facility] Qxqgnummfn55[address] [place], [address] GAP 12 (Normal) Range: 5-15 CO2 24.0 [...] DIABETES MELLITUS per A.D.A. criteria. :22 MAGNESIUM (16545) Comments: PATIENT NOT FASTINGPERFORMED BY: [facility]6370 [facility] [id number] Magnesium, Serum 1.5 mg/dL (Abnormal) Range: 1.6-2.3 :22 POTASSIUM SERUM (50081) Comments: PATIENT NOT FASTINGPERFORMED BY: [facility]6370 [facility] [id number] Potassium, Serum 4.0 mmol/L (Normal) Range: 3.5-5.2 :13 Rapid Flu (43427 x 2) Influenza A Ag negative (Normal) :42 VITAMIN B12 AND FOLATES Comments: PATIENT NOT FASTINGPERFORMED BY: [facility]6370 [facility] [id number] (44629) Folate (Folic Acid), Serum 18.3 ng/mL (Normal) Comments: A serum folate concentration of less than 3.1 ng/mL isconsidered to represent clinical deficiency. Vitamin B12 650 pg/mL (Normal) Range: 211-946 :42 TSH (09646) Comments: PATIENT NOT FASTINGPERFORMED BY: [facility]6370 [facility] [id number] TSH 1.610 {uIU/mL} (Normal) Range: 0.450-4.500 01-Ote-647310:42 Metabolic Panel, Comprehensive Comments: PATIENT NOT FASTINGPERFORMED BY: [facility]6370 [facility] [id number] (45088) ALT (SGPT) 9 [iU]/L (Normal) Range: 0-32 [...] (Normal) Range: 65-99 :26 HgA1C , Office (01494) HgA1C , Office 6.8 % (Normal) Range: 4.6 - 7.1 :26 Blood Glucose , Office (68166) Blood Glucose , Office 110 (Normal) :10 Culture, Body Fluid Comments: [facility] Xaxvvykwtr7063 [facility] [place], [address] ; Another doc CUBF See [...] Fluid RBC, WBC AND Comments: LEFT KNEELEFT KNEEWJ.W. [facility] Glyhkatsnt[address] [facility] [address] [facility] [place], [address] ; another doc Diff PATH [...] (Normal) :30 Crystals, Body Fluid Comments: LEFT [facility] [address] [place], [address] PATH REV Reviewed (Normal) SOURCE/BF SYNOVIAL (Normal) CRYSTALS/BF SEE PATH REV (Normal) :30 Culture, Body Fluid Comments: [facility] [address] [place], [address] CUBF See Note (Normal) Comments: List Antibiotics Last 48 Hours? UNKList Antibiotics to be Started? UNKComments: LEFT KNEEGram StainCentrifuged Specimen? Culture performed on centrifuged specimen Gram Stain 2+ Red Blood Donya ls No White Blood Cells No organisms seen Body Fluid CultNO GROWTH IN 14 DAYS Cult, AnaerobicNo growth in 5 days. :48 CBC W/Diff, Automated Comments: [facility] [address] [place], [address] Absolute Lymph 2.23 {X10_3/ul} (Normal) [...] 4.2-5.4 WBC 7.0 K/mm3 (Normal) Range: 4.4-11.0 6-Lpc-194303:48 Comprehensive Metabolic Profil Comments: [facility] Tfoeiezghs[address] [place], [place], [address] GAP 10 (Normal) Range: 5-15 CO2 29.0 [...] 7-18 GLU 99 mg/dL (Normal) Range: 70-110 67-Kac-52791:32 Comprehensive Metabolic Profil Comments: [facility] [address] [place], [address] GAP 8 (Normal) Range: 5-15 CO2 31.0 [...] <126 mg/dLsuggests IMPAIRED HOMEOSTASIS per A.D.A. criteria. 99-Kfx-28528:32 Culture, Urine Comments: [facility] Fhngwzsueg8177 [facility] [address]. [place], [place], [address] CUUR See Note (Normal) Comments: Urine CultureORGANISM [...] $ <=20 S(NF) indicates non-formulary drug at [facility]. Approval by Infectious Disease Specialist required before non- formulary drugs may be ordered and/or dispensed. 29-Jpr-092580:08 Urinalysis, Complete Comments: How was Urine Obtained? [facility] Qehdltiuiv2481 [facility] [address]. [place], [place], [address] MUCUS, URINE 0 SEEN {/hpf} (Normal) BACTERIA [...] (Normal) COLOR Yellow (Normal) :56 POTASSIUM SERUM (26200) Comments: PATIENT NOT FASTINGPERFORMED BY: SymonicsHackettstown Medical CenterTexwej9404 [facility] [id number] Potassium, Serum 4.4 mmol/L (Normal) Range: 3.5-5.2 :56 MAGNESIUM (94255) Comments: PATIENT NOT FASTINGPERFORMED BY: SymonicsHackettstown Medical CenterOqobwc9138 [facility] [id number] Magnesium, Serum 1.5 mg/dL (Abnormal) Range: 1.6-2.3 :29 CBC WITH MANUAL DIFF Comments: PATIENT WAS FASTINGPERFORMED BY: [facility]onicsHackettstown Medical CenterOccatr2847 [facility] [id number] Information: [id number] (56786) Immature Grans (Abs) 0.0 {x10E3/uL} (Normal) Range: [...] 3.77-5.28 WBC 5.8 {x10E3/uL} (Normal) Range: 3.4-10.8 6-Njc-097916:15 CBC, Platelets & Auto Diff Comments: PATIENT NOT FASTINGPERFORMED BY: [facility] Ahhigm8672 [facility] [id number] (93992) Immature Grans (Abs) 0.0 {x10E3/uL} (Normal) Range: [...] 3.77-5.28 WBC 14.0 {x10E3/uL} (Abnormal) Range: 3.4-10.8 7-Gpe-678794:15 Metabolic Panel, Comprehensive Comments: PATIENT NOT FASTINGPERFORMED BY: SymonicsHackettstown Medical CenterWhbrty4839 [facility] [id number] (22527) ALT (SGPT) 14 [iU]/L (Normal) Range: 0-32 [...] Glucose, Serum 98 mg/dL (Normal) Range: 65-99 79-Voc-957494:28 Metabolic Panel, Comments: PATIENT WAS FASTINGPERFORMED BY: SymonicsHackettstown Medical CenterSxsrpy8798 [facility] [id number] Information: [id number] Comprehensive (03529) ALT (SGPT) 13 [iU]/L (Normal) Range: 0-32 [...] Glucose, Serum 110 mg/dL (Abnormal) Range: 65-99 [id number]-Uld-[id number]:54 Urinalysis, Office (79393) UA - LEUKOCYTE ESTERASE Trace (Normal) UA - NITRITE Negative (Normal) URINE UROBILINGN JEWELS TIMED Normal mg/dL (Normal) UA - PROTEIN Negative mg/dL (Normal) UA - PH 6 (Abnormal) UA - BLOOD Negative (Normal) UA - SPECIFIC GRAVITY 1.015 (Normal) UA - KETONES Moderate mg/dL (Normal) UA - BILIRUBIN Negative (Normal) UA - GLUCOSE Negative (Normal) 41-Wel-174568:21 Basic Metabolic Profile (BMP) Comments: [facility] [id number] [place], [address] GAP 9 (Normal) Range: 5-15 [...] 200 mg/dLsuggests DIABETES MELLITUS per A.D.A. criteria. [id number] CBC W/Diff, Automated Comments: [facility] [id number] [place] [place], [address] Absolute Lymph 3.53 {X10_3/ul} (Normal) [...] 4.2-5.4 WBC 13.8 K/mm3 (Abnormal) Range: 4.4-11.0 [id number]-Qbl-[id number]:21 Urinalysis, Complete Comments: Order Date: 04/25/16How was Urine Obtained? [facility] [id number] [place], [address] MUCUS, URINE 0 SEEN {/hpf} [...] (Normal) CLARITY Cloudy (Normal) COLOR Yellow (Normal) 43-Vyj-227802:20 Lactic Acid Comments: [facility] [id number] [place], [address] LACTIC ACID 4.8 mmol/L (Abnormal) Range: 0.4-2.0 Comments: Critical Result(s) Called at: 19:26:18 04/25/2016 by:Tiffany Oliva RN :32 CBC W/Diff, Automated Comments: [facility] [id number] [place], [place], [id number] Absolute Lymph 1.94 {X10_3/ul} (Normal) Range: 0.83-4.51 [...] Range: 4.4-11.0 :32 Comprehensive Metabolic Profil Comments: [facility] [address] [place], [address] GAP 9 (Normal) Range: 5-15 [...] 126 mg/dLsuggests DIABETES MELLITUS per A.D.A. criteria. 50-Xhu-807349:01 CBC W/Diff, Automated Comments: [facility] Y[address] [place], [place], [address] Absolute Lymph 2.12 {X10_3/ul} (Normal) Range: 0.83-4.51 [...] 4.2-5.4 WBC 9.9 K/mm3 (Normal) Range: 4.4-11.0 14-Xfn-014337:01 CRP Comments: [facility] [address] [place], [address] C-REACTIVE PROT < 2.90 mg/L (Normal) Range: 0.0-3.0 Comments: C-Reactive Protein (CRP) provides useful information for thediagnosis, therapy and monitoring of inflammatory processesand associated diseases. For the evaluation of Relative Riskfor Cardiovascular Dise ase, a High Sensitivity CRP (HSCRP)should be ordered. 01-Hsv-743326:01 Erythrocyte Sed Rate Comments: [facility] [address] [place], [place], [address] SED RATE 10 mm/h (Normal) Range: 0-30 55-Zoh-855608:13 CK-MB Quantitative and Index Comments: 'TROP' Serial specimen #1, #2, #3, or #4: 1'CKMB' Serial Specimen #1, #2 or #3? 1[facility] [address] [place], [place], [address] CKRI 1.5 % (Abnormal) Range: 0.0-1.4 Comments: RELATIVE INDEX >1.5% IS PRESUMPTIVELY POSITIVE CPKMB 1.0 ng/mL (Normal) Range: 0.0-5.0 Comments: CK-MB and RI Interpretation MB Relative Index Non-AMI <or= 5 NA Indeterminate > 5 <or= 4 AMI > 5 > 4 CPK TOTAL 65 U/L (Normal) Range: 26-192 30-Zxi-429014:13 Myoglobin, Serum Comments: [facility] (refer to report for specific site)refer to report for address and phone number Myoglobin, Ser 42 ng/mL (Normal) Range: 25-58 Comments: Performed at: [address] [id number] Director: Edil Robertson PhD, Phone: [phone] 96-Wcs-136841:13 Troponin-I Comments: 'TROP' Serial specimen #1, #2, #3, or #4: 1'CKMB' Serial Specimen #1, #2 or #3? 1[facility] [address] [place] [address], [id number] TROPONIN-I < 0.02 ng/mL (Normal) Comments: TROPONIN-I EXPECTED VALUES <0.05 NEGATIVE 0.06 - 0.59 AT RISK OF [place] > OR = 0.60 SUGGEST [place] 70-Mua-224896:19 URINE HANSA CULTURE-JEWELS COL Comments: PATIENT NOT FASTINGPERFORMED BY: [address] [id number] Information: SRC:[facility] [id number] COUNT (54207) Antimicrobial MIHEAD (Normal) Comments: S = Susceptible; [...] mL (Abnormal) Urine Final report Culture,Comprehensive (Abnormal) 05-Yvh-189584:54 Urinalysis, Office (91312) UA - LEUKOCYTE ESTERASE Small (Normal) UA - NITRITE Positive (Normal) URINE UROBILINGN JEWELS TIMED Normal mg/dL (Normal) UA - PROTEIN Trace mg/dL (Normal) UA - PH 7 (Normal) UA - BLOOD Negative (Normal) UA - SPECIFIC GRAVITY 1.025 (Normal) UA - KETONES Small mg/dL (Normal) UA - BILIRUBIN Small (Normal) UA - GLUCOSE Negative (Normal) 87-Pie-357801:38 Blood Glucose , Office (74162) Blood Glucose , Office 85 (Normal) :38 Basic Metabolic Profile (BMP) Comments: Is Patient Taking Vitamins or Folic Acid Supplements? [facility] S[address]ui[address] [place], [address] GAP 9 (Normal) Range: 5-15 CO2 28.0 [...] Patient Taking Vitamins or Folic Acid Supplements? [facility] [address]xfkt[address] [place], [place], [address] FOLATES 13.40 ng/mL (Normal) Range: 3.1-17.5 :38 Vitamin B12 723 pg/mL (Normal) Comments: [facility] Etqvsbxsax16[address], [address] Range: 211-911 :32 CBC W/Diff, Automated Comments: [facility] [address] [place], [address] ; ordered by Dr. Colmenares Absolute Lymph [...] Range: 4.4-11.0 :32 Comprehensive Metabolic Profil Comments: [facility] [address] [place], [place], [address] GAP 5 (Normal) Range: 5-15 CO2 31.0 [...] mg/dL (Normal) Range: 70-110 :03 LIPID PANEL (67004) Comments: PATIENT WAS FASTINGPERFORMED BY: CB [facility] Nukzss8966 [facility] [id number] BY: BN [facility] [address] [id number] LDL/HDL Ratio 3.2 {ratio_units} (Normal) Range: 0.0-3.2 [...] 1, 25-DIHYDROXY Comments: PATIENT WAS FASTINGPERFORMED BY: Retellity Slice [facility] [id number] BY: [place]ics[place] [id number] (30932) Calcitriol(1,25 di-OH Vit D) 51.7 pg/mL (Normal) Range: 19.9-79.3 :03 MICROALBUMIN: CREATININE Comments: PATIENT WAS FASTINGPERFORMED BY: [facility] [id number] BY: [place]ics[place] [id number] RATIO (25947) AND (18585) Microalb/Creat Ratio 35.5 {mg/g_creat} (Abnormal) Range: 0.0-30.0 Microalbumin, Urine 42.6 ug/mL (Abnormal) Range: 0.0-17.0 Creatinine, Urine 120.0 mg/dL (Normal) Range: 15.0-278.0 :03 METABOLIC PANEL, Comments: PATIENT WAS FASTINGPERFORMED BY: Retellity Mdmcmq1117 [facility] [id number] BY: [facility] [id number] COMPREHENSIVE (20980) ALT (SGPT) 14 [iU]/L (Normal) Range: 0-32 [...] Glucose, Serum 137 mg/dL (Abnormal) Range: 65-99 52-Alu-03585:03 CBC, PLATELETS & AUT DIFF Comments: PATIENT WAS FASTINGPERFORMED BY: CB [facility] Ouimbj2434 [facility] [id number] BY: [facility] [address] [id number] Information: [id number] (47868) Immature Grans (Abs) 0.0 {x10E3/uL} (Normal) Range: [...] (THYROID STIMULATING Comments: PATIENT WAS FASTINGPERFORMED BY: Retellity Slice [facility] [id number] BY: [facility] [id number] HORMONE) (48311) TSH 3.840 {uIU/mL} (Normal) Range: 0.450-4.500 :03 VITAMIN B12 AND FOLATES Comments: PATIENT WAS FASTINGPERFORMED BY: [facility] [id number] BY: [facility] [id number] (89522) Folate (Folic Acid), Serum 14.3 ng/mL (Normal) Comments: A serum folate concentration of less than 3.1 ng/mL isconsidered to represent clinical deficiency. Vitamin B12 742 pg/mL (Normal) Range: 211-946 :56 HgA1C , Office (06603) HgA1C , Office 6.8 % (Normal) Range: 4.6 - 7.1 :56 Blood Glucose , Office (03292) Blood Glucose , Office 128 (Normal) :36 CBC W/Diff, Automated Comments: [facility] [address] [place], [place], [address] Absolute Lymph 2.25 {X10_3/ul} (Normal) Range: 0.83-4.51 [...] Range: 4.4-11.0 :36 Comprehensive Metabolic Profil Comments: [facility] [address] [place], [address] GAP 8 (Normal) Range: 5-15 CO2 28.0 [...] 126 mg/dLsuggests DIABETES MELLITUS per A.D.A. criteria. 7-Mcu-625151:12 ANTINUCLEAR ANTIBODIES DIRECT Comments: [facility] (refer to report for specific site)refer to report for address and phone number EVERTON-DIRECT Negative (Normal) Comments: Performed at: - [facility] [id number] Director: Edil Robertson PhD, Phone: [phone] 6-Qsb-558770:12 CBC W/Diff, Automated Comments: [facility] N[address] [place], [address] Absolute Lymph 1.93 {X10_3/ul} (Normal) [...] report for address and phone number ANTI-CCP 857992 4 {units} (Normal) Range: 0-19 Comments: Negative <20 Weak positive 20 - 39 Moderate positive 40 - 59 Strong positive >59 :12 Comprehensive Metabolic Profil Comments: [facility] [address]newb[address] [place], [place], [address] GAP 6 (Normal) Range: 5-15 CO2 33.0 [...] 7-18 GLU 95 mg/dL (Normal) Range: 70-110 7-Rvq-674937:12 Hep B Surface Antibodies Comments: [facility] (refer to report for specific site)refer to report for address and phone number Hep B Loi AB Reactive (Normal) Comments: Non Reactive: Inconsistent with immunity, less than 10 mIU/mL Reactive: Consistent with immunity, greater than 9.9 mIU/mL 0-Xdk-681663:12 Hepatitis B Surface Ag Comments: [facility] (refer to report for specific site)refer to report for address and phone number HB SURF AG Negative (Normal) 7-Wab-823891:12 Hepatitis B Core AB IgM Comments: [facility] (refer to report for specific site)refer to report for address and phone number HB CORE [id number] Negative (Normal) Comments: Performed at: - [facility] [id number] Director: Edil Robertson PhD, Phone: [phone] at: 2Q - [facility] BJL2750 [place], [place] [id number] Director: Jared Rodriguez PhD, Phone: [phone] at: - [facility] [id number] Director: Dylan Matthews MD, Phone: [phone] 0-Ubz-157566:12 Hepatitis C Antibodies Comments: [facility] (refer to [...] a more specific supplemental or PCR testing. [facility] offers HCV Ab w/Reflex to Verification test #[id number]. :12 HLA B27 Negative (Normal) Comments: [facility] (refer to report for specific site)refer to report for address and phone number Comments: HLA-B*27 NegativeHLA allele interpretation for all loci based on IMGT/HLAdatabase version 3.15A [facility] HospitalIA ID Number [id number] test was performed using PCR (Polymerase ChainReaction)/SSOP (Sequence Specific Oligonucleotide Probes)technique. SBT (Sequence Based Typing) and/or SSP(Sequence Specific Primers) may be used as supplementalmethods when necessary. Please contact HLA CustomerService at [phone] if you have any questions. Director of HLA Laboratory Dr Jared Rodriguez, PhD :12 Rheumatoid Factor Comments: [facility] [address] [place], [address] RHEUMATOID FAC < 10.0 {IU/mL} (Normal) 7-Yrx-438156:12 Vitamin D,25 Hydroxy Comments: [facility] [address] [place], [address] Vitamin D 25-OH 50.9 ng/mL (Normal) Comments: Vitamin D 25(OH) Status Range Deficiency <20 ng/mL (50nmol/L) Insuffciency 20 - 30 ng/mL (50 - 75 nmol/L) Sufficiency 30 - 100 ng/mL (75 - 250 nmol/L) Toxicity >100 ng/mL (>250 nmol/L) 93-Veu-16716:37 LIPID PANEL (76981) Comments: PATIENT WAS FASTINGPERFORMED BY: [facility] [id number] LDL/HDL Ratio 2.8 {ratio_units} (Normal) Range: 0.0-3.2 [...] - 169 >19 years 100 - 199 97-Zfl-15396:37 CBC, PLATELETS & AUT DIFF Comments: PATIENT WAS FASTINGPERFORMED BY: [employer] LabCoTopBlipBhvytj0000 [facility] [id number] Information: [id number] (31261) Immature Grans (Abs) 0.0 {x10E3/uL} (Normal) Range: [...] B-12 (CYANOCOBALAMIN) Comments: PATIENT WAS FASTINGPERFORMED BY: Retellity Gbqdpl5240 Zenda Technologiesin [place] [id number] (08538) Vitamin B12 871 pg/mL (Normal) Range: 211-946 :37 Vitamin D Hydroxy (48941) Comments: PATIENT WAS FASTINGPERFORMED BY: [employer] LabPlusFourSixrp Iqmgxh0900 [address] HammerKitDublin [place] [id number] Vitamin D, 25-Hydroxy 69.6 ng/mL (Normal) Range: 30.0-100.0 Comments: Vitamin D deficiency has been defined by the [place] ofMedicine and an Endocrine Society practice guideline as alevel of serum 25-OH vitamin D less than 20 ng/mL (1,2).The Endocrine Society went on to further define vitamin Dinsufficiency as a level between 21 and 29 ng/mL (2).1. IOM (Fisk of Medicine). 2010. Dietary reference intakes for calcium and D. [place]: The National Academies Press.2. Delma MF, Mckenna ABDALLA, Dane MACKENZIE, et al. Evaluation, treatment, and prevention of vitamin D deficiency: an Endocrine Society clinical practice guideline. JCEM. 2010; 96(7):1911-30. :37 METABOLIC PANEL, COMPREHENSIVE Comments: PATIENT WAS FASTINGPERFORMED BY: [facility] Bcuptk8338 [facility] [id number]; apt. 07-01-15 (22042) ALT (SGPT) 10 [iU]/L (Normal) Range: 0-32 [...] (Abnormal) Range: 65-99 :02 HgA1C , Office (90135) HgA1C , Office 7.1 % (Normal) Range: 4.6 - 7.1 :24 EBV Panel (72470) Comments: PATIENT NOT FASTINGPERFORMED BY: [facility]6370 [facility] [id number] Interpretation: SPRCS (Normal) Comments: EBV Interpretation Chart [...] DIFF WBC Comments: PATIENT NOT FASTINGPERFORMED BY: [facility]6370 [facility] [id number] Information: [id number] (97872) Immature Grans (Abs) 0.0 {x10E3/uL} (Normal) Range: [...] 3.77-5.28 WBC 6.7 {x10E3/uL} (Normal) Range: 3.4-10.8 50-Mzj-439372:37 HANSA CULTURE-OTHER (93963) Comments: PATIENT NOT FASTINGPERFORMED BY: SymonicsCrownpoint Health Care FacilityYscryc8800 [facility] [id number] Information: SRC:THRT [id number] Result 1 RRF (Normal) Comments: Routine respiratory vicente Upper Respiratory Culture Final report (Normal) 86-Bgx-566751:30 Rapid Strep Test, Office (87090) Rapid Strep Test, Office Negative (Normal) 06-Feb-20159:15 CBC, Platelet, No Differential Comments: PATIENT WAS FASTINGPERFORMED BY: [employer] Czcoxt4288 [facility] [id number] Platelets 245 {x10E3/uL} (Normal) Range: 150-379 RDW [...] Panel (14) Comments: PATIENT WAS FASTINGPERFORMED BY: [facility]CoHackettstown Medical CenterNbbtig0868 [facility] [id number] Information: [id number] ALT (SGPT) 8 [iU]/L (Normal) Range: 0-32 [...] With LDL/HDL Comments: PATIENT WAS FASTINGPERFORMED BY: [facility]6370 [facility] [id number] Ratio LDL/HDL Ratio 3.7 {ratio_units} Range: 0.0-3.2 [...] pg/mL (Normal) Comments: PATIENT WAS FASTINGPERFORMED BY: [facility]6370 [facility] [id number] :15 Range: 211-946 Vitamin D, 25-Hydroxy 56.4 ng/mL (Normal) Comments: PATIENT WAS FASTINGPERFORMED BY: [facility]6370 [facility] [id number] :15 Range: 30.0-100.0 Comments: Vitamin D deficiency has been defined by the [place] ofMedicine and an Endocrine Society practice guideline as alevel of serum 25-OH vitamin D less than 20 ng/mL (1,2).The Endocrine Society went on to further define vitamin Dinsufficiency as a level between 21 and 29 ng/mL (2).1. IOM (Fisk of Medicine). 2010. Dietary reference intakes for calcium and D. [place]: The National Academies Press.2. Mckenna Christie, Dane MACKENZIE, et al. Evaluation, treatment, and prevention of vitamin D deficiency: an Endocrine Society clinical practice guideline. JCEM. 2010; 96(7):1911-30. :33 HgA1C , Office (81000) HgA1C , Office 6.4 % (Normal) Range: 4.6 - 7.1 :27 Potassium Comments: Test performed at:[facility] [address] [place] [address] K 3.5 mmol/L (Normal) Range: 3.5-5.1 :59 Vitamin D Hydroxy (66451) Comments: PATIENT NOT FASTINGPERFORMED BY: Seeker Wirelessin [place] [id number] Vitamin D, 25-Hydroxy 40.6 ng/mL (Normal) Range: 30.0-100.0 Comments: Vitamin D deficiency has been defined by the [place]isk ofMedicine and an Endocrine Society practice guideline as alevel of serum 25-OH vitamin D less than 20 ng/mL (1,2).The Endocrine Society went on to further define vitamin Dinsufficiency as a level between 21 and 29 ng/mL (2).1. IOM (Fisk of Medicine). 2010. Dietary reference intakes for calcium and D. [place]: The National Academies Press.2. Delma RIVERA, Mckenna ABDALLA, Dane MACKENZIE, et al. Evaluation, treatment, and prevention of vitamin D deficiency: an Endocrine Society clinical practice guideline. JCEM. 2010; 96(7):1911-. :59 T4, FREE (THYROXINE) Comments: PATIENT NOT FASTINGPERFORMED BY: [employer]70 [employer]enda Technologiesin [place] [id number] Information: [id number] (45069) T4,Free(Direct) 1.22 ng/dL (Normal) Range: 0.82-1.77 :59 T3, FREE (TRIDOTHYRONINE) (10123) Comments: PATIENT NOT FASTINGPERFORMED BY: SecretSalesDublin [place] [id number] Triiodothyronine,Free,Serum 3.2 pg/mL (Normal) Range: 2.0-4.4 :59 TSH (78654) Comments: PATIENT NOT FASTINGPERFORMED BY: LabM[facility]6370 [facility] [id number] TSH 2.460 {uIU/mL} (Normal) Range: 0.450-4.500 :59 SED RATE ERYTHROCYTE (98733) Comments: PATIENT NOT FASTINGPERFORMED BY: LabMcl[facility] Region6370 [facility] [id number] Sedimentation Rate-Westergren 3 mm/h (Normal) Range: 0-40 :59 C-REACTIVE PROTEIN (16132) Comments: PATIENT NOT FASTINGPERFORMED BY: [facility]6370 [facility] [id number] C-Reactive Protein, Quant 2.6 mg/L (Normal) Range: 0.0-4.9 :06 TSH (52207) Comments: PATIENT NOT FASTINGPERFORMED BY: [facility]6370 [facility] [id number] TSH 1.920 {uIU/mL} (Normal) Range: 0.450-4.500 :06 CBC with auto diff Comments: PATIENT NOT FASTINGPERFORMED BY: [facility]6370 [facility] [id number] Information: [id number] (56340) Immature Grans (Abs) 0.0 {x10E3/uL} (Normal) Range: [...] 3.77-5.28 WBC 7.9 {x10E3/uL} (Normal) Range: 3.4-10.8 1-Oas-764171:06 METABOLIC PANEL, COMPREHENSIVE Comments: PATIENT NOT FASTINGPERFORMED BY: [facility]CoHackettstown Medical CenterZfpyqg6159 [facility] [id number] (70903) ALT (SGPT) 6 [iU]/L (Normal) Range: 0-32 [...] Glucose, Serum 111 mg/dL (Abnormal) Range: 65-99 1-Tyi-626882:09 URINE HANSA CULTURE (JEWELS Comments: PATIENT NOT FASTINGPERFORMED BY: [facility]CoHackettstown Medical CenterMklsbn2213 [facility] [id number] Information: SRC:[facility] [id number] COL COUNT) (22723) Result 1 CNSNSS (Abnormal) Comments: Coagulase negative [...] S Urine Final report Culture,Comprehens (Abnormal) ananth 3-Kqd-247095:54 Urinalysis, Office (65040) UA - LEUKOCYTE ESTERASE Negative (Normal) UA - NITRITE Negative (Normal) URINE UROBILINGN JEWELS TIMED Normal mg/dL (Normal) UA - PROTEIN Negative mg/dL (Normal) UA - PH 6.5 (Normal) UA - BLOOD Negative (Normal) UA - SPECIFIC GRAVITY 1.015 (Normal) UA - KETONES Negative mg/dL (Normal) UA - BILIRUBIN Negative (Normal) UA - GLUCOSE Negative (Normal) 90-Ntk-996379:40 Urine Drug Screen (VISTA) Comments: Has pt arrived? YTest performed at:[facility] [address] [place] [address] THC NEGATIVE (Normal) PCP NEGATIVE [...] MUST BE ORDERED SEPARATELY. USE TESTMNEMONIC: UTCA 97-Cfo-972998:25 Acetaminophen (Tylenol) Level Comments: Test performed at:[facility] [address]ld[address] [place] [address] ACETAMINOPHEN < 2.0 ug/mL (Abnormal) Range: 10.0-30.0 42-Kkx-821877:25 Basic Metabolic Profile (BMP) Comments: Test performed at:[facility] [address]kj[address] [place] [address] GAP 8 (Normal) Range: 5-15 [...] 126 mg/dLsuggests DIABETES MELLITUS per A.D.A. criteria. 45-Mxf-694455:25 CBC W/Diff, Automated Comments: Test performed at:[facility] U[address]muuwfjo[address] [place], [place] [address] Absolute Lymph 0.55 {X10_3/ul} (Abnormal) Range: 0.83-4.51 [...] 4.2-5.4 WBC 11.3 K/mm3 (Abnormal) Range: 4.4-11.0 40-Cba-821601:25 Partial Thromboplast Time Comments: Test performed at:[facility] Wipwhmyjwo1110 [facility] [place] [address] PTT 31.9 s (Normal) Range: 24.1-36.2 22-Hgb-004853:25 Prothrombin Time w/INR Comments: Test performed at:[facility] Ebkfurctba[address] [place] [address] INR 1.1 (Normal) PROTIME 14.0 s (Normal) Range: 11.7-14.9 :22 Basic Metabolic Profile (BMP) Comments: Test performed at:[facility] Rrszvdttdw[address] [place] [address] GAP 8 (Normal) Range: 5-15 CO2 31.0 [...] Blood Cnt No Diff Comments: Test performed at:[facility] K[address]im[address] [place] [address] MPV 10.0 fL (Normal) Range: 6.2-12.0 [...] Blood Cnt No Diff Comments: Test performed at:[facility] Mwhoexnelt1822 [facility] [place] [address] MPV 10.4 fL (Normal) Range: [...] Basic Metabolic Profile (BMP) Comments: Test performed at:[facility] Rdprklqona8794 [facility] [place] [address] GAP 8 (Normal) Range: 5-15 [...] 126 mg/dLsuggests DIABETES MELLITUS per A.D.A. criteria. 70-Seg-69412:52 CBC-Complete Blood Cnt No Diff Comments: Test performed at:[facility] Phjofvqsfn0886 [facility] [address] [place], [place] [address] MPV 10.0 fL (Normal) Range: 6.2-12.0 PLT [...] 4.2-5.4 WBC 8.7 K/mm3 (Normal) Range: 4.4-11.0 75-Ayw-089848:00 Bedside Glucose Comments: Test performed at:[facility] Nbjebsdwjx0083 [place] [address] BEDSIDE GLU 138 mg/dL (Abnormal) Range: 70-110 Comments: No Action RequiredMANAGEMENT OF PATIENT CARE PER NURSING PROTOCOL 84-Feh-178247:12 Bedside Glucose Comments: Test performed at:[facility] Uxtuzymphs1425 [place] [address] BEDSIDE GLU 108 mg/dL (Normal) Range: 70-110 Comments: No Action RequiredMANAGEMENT OF PATIENT CARE PER NURSING PROTOCOL 68-Pvd-28987:07 VITAMIN B-12 (CYANOCOBALAMIN) Comments: PATIENT WAS FASTINGPERFORMED BY: [facility] Fojkpk3286 [facility] [id number] (97647) Vitamin B12 498 pg/mL (Normal) Range: 211-946 32-Ceg-74479:07 MICROALBUMIN: CREATININE RATIO Comments: PATIENT WAS FASTINGPERFORMED BY: SymonicsHackettstown Medical CenterEhhmxq1567 [facility] [id number] (84967) AND (30706) Microalb/Creat Ratio 24.7 {mg/g_creat} (Normal) Range: 0.0-30.0 Microalbumin, Urine 36.2 ug/mL (Abnormal) Range: 0.0-17.0 Creatinine, Urine 146.6 mg/dL (Normal) Range: 15.0-278.0 :07 CBC W/AUTO DIFF WBC Comments: PATIENT WAS FASTINGPERFORMED BY: SymonicsCrownpoint Health Care FacilityNmeres1317 [facility] [id number] Information: [id number] (61980) Immature Grans (Abs) 0.0 {x10E3/uL} (Normal) Range: [...] 7.0 {x10E3/uL} (Normal) Range: 3.4-10.8 :07 TSH (87508) Comments: PATIENT WAS FASTINGPERFORMED BY: SymonicsHackettstown Medical CenterCdvafi4636 [facility] [id number] TSH 4.510 {uIU/mL} (Abnormal) Range: 0.450-4.500 :07 LIPID PANEL (06725) Comments: PATIENT WAS FASTINGPERFORMED BY: LabPlusFourSixHackettstown Medical CenterTjbaqv5700 [facility] [id number] VLDL Cholesterol Peg VLDLCH mg/dL (Normal) Range: [...] PANEL, COMPREHENSIVE Comments: PATIENT WAS FASTINGPERFORMED BY: SymonicsHackettstown Medical CenterUizdnz8812 [facility] [id number] (92948) ALT (SGPT) 10 [iU]/L (Normal) Range: 0-32 [...] (Abnormal) Range: 65-99 :22 HgA1C , Office (31541) HgA1C , Office 6.9 % (Normal) Range: [...] Results called on 08/07/14152 by Zohreh THOMPSON ([facility]) [phone]. Comments: Copy of report sent to Infection Control Printer MS#[id number] 08/07/14 2191 [facility]. RESULTS PRINTED MS#[id number] S. AUREUS S. aureus PositiveMRSA MRSA Negative 89-Man-75979:34 VITAMIN B-12 (CYANOCOBALAMIN) Comments: PATIENT WAS FASTINGPERFORMED BY: [facility]6370 [facility] [id number] (64627) Vitamin B12 1631 pg/mL (Abnormal) Range: 211-946 :34 CBC W/AUTO DIFF WBC Comments: PATIENT WAS FASTINGPERFORMED BY: LabCoHackettstown Medical CenterLjawnk2745 [facility] [id number] Information: [id number] (70242) Immature Grans (Abs) 0.0 {x10E3/uL} (Normal) Range: [...] 3.77-5.28 WBC 4.0 {x10E3/uL} (Normal) Range: 3.4-10.8 80-Rrx-47017:34 METABOLIC PANEL, COMPREHENSIVE Comments: PATIENT WAS FASTINGPERFORMED BY: [facility] [id number] [facility] [id number] ([id number]) ALT (SGPT) 10 [iU]/L (Normal) Range: 0-32 [...] mg/dL (Abnormal) Range: 65-99 :34 LIPID PANEL ([id number]) Comments: PATIENT WAS FASTINGPERFORMED BY: [facility] [facility] CenterInzgvf9188 [facility] [id number] LDL/HDL Ratio 3.3 {ratio_units} (Abnormal) Range: 0.0-3.2 [...] Examination Comments: PATIENT WAS FASTINGPERFORMED BY: [facility] Vwsrvt9802 [facility] [id number] Bacteria None seen (Normal) Epithelial Cells (non renal) 0-10 {/hpf} (Normal) Range: 0 - 10 RBC None seen {/hpf} (Normal) Range: 0 - 2 WBC 0-5 {/hpf} (Normal) Range: 0 - 5 :12 TSH (81854) Comments: PATIENT WAS FASTINGPERFORMED BY: [facility] Xjcurw7376 [facility] [id number]; non-emergent till apt this week TSH 1.560 {uIU/mL} (Normal) Range: 0.450-4.500 :12 URINALYSIS, W/ MICRO (02278) Comments: PATIENT WAS FASTINGPERFORMED BY: [facility] Lrcsbx5834 [facility] [id number] Microscopic Examination See below: (Normal) Comments: Microscopic was indicated and was performed. Microscopic Examination MICRON (Normal) Comments: Microscopic follows if indicated. Nitrite, Urine Negative (Normal) Urobilinogen,Semi-Qn 0.2 mg/dL (Normal) Range: 0.0-1.9 Bilirubin Negative (Normal) Occult Blood Negative (Normal) Ketones Negative (Normal) Glucose Negative (Normal) Protein Trace (Normal) WBC Esterase Negative (Normal) Appearance Clear (Normal) Urine-Color Yellow (Normal) pH 8.0 (Abnormal) Range: 5.0-7.5 Specific [place] 1.014 (Normal) Range: 1.005-1.030 :12 Vitamin D Hydroxy (18482) Comments: PATIENT WAS FASTINGPERFORMED BY: [facility]University [facility] Vxdpss3786 [facility] [id number] Vitamin D, 25-Hydroxy 42.2 ng/mL (Normal) Range: 30.0-100.0 Comments: Vitamin D deficiency has been defined by the [place] ofMedicine and an Endocrine Society practice guideline as alevel of serum 25-OH vitamin D less than 20 ng/mL (1,2).The Endocrine Society went on to further define vitamin Dinsufficiency as a level between 21 and 29 ng/mL (2).1. IOM (Fisk of Medicine). 2010. Dietary reference intakes for calcium and D. [place]: The National Academies Press.2. Delma MF, Mckenna ABDALLA, Dane MACKENZIE, et al. Evaluation, treatment, and prevention of vitamin D deficiency: an Endocrine Society clinical practice guideline. JCEM. 2010; 96(7):1911-30. :12 MICROALBUMIN: CREATININE RATIO Comments: PATIENT WAS FASTINGPERFORMED BY: [employer]6370 [facility] [id number] (32810) AND (68217) Microalb/Creat Ratio 4.7 {mg/g_creat} (Normal) Range: 0.0-30.0 Creatinine, Urine 49.4 mg/dL (Normal) Range: 15.0-278.0 Microalbumin, Urine 2.3 ug/mL (Normal) Range: 0.0-17.0 :12 METABOLIC PANEL, Comments: PATIENT WAS FASTINGPERFORMED BY: [employer]6370 [facility] [id number] Information: [id number] COMPREHENSIVE (23023) ALT (SGPT) 12 [iU]/L (Normal) Range: 0-32 [...] mg/dL (Abnormal) Range: 65-99 :12 LIPID PANEL (18804) Comments: PATIENT WAS FASTINGPERFORMED BY: [facility] WirelessAlleghany Health [id number] LDL/HDL Ratio 2.7 {ratio_units} (Normal) Range: 0.0-3.2 [...] B-12 (CYANOCOBALAMIN) Comments: PATIENT WAS FASTINGPERFORMED BY: [facility] WirelessAlleghany Health [id number] (49079) Vitamin B12 287 pg/mL (Normal) Range: 211-946 :34 HgA1C , Office (18804) HgA1C , Office 6.3 % (Normal) Range: 4.6 - 7.1 :55 Creatine Kinase Total (24748) Comments: PATIENT NOT FASTINGPERFORMED BY: Retellity MavenHutMaria Parham Health [id number] Creatine Kinase,Total,Serum 105 U/L (Normal) Range: 24-173 :55 TSH (86952) Comments: PATIENT NOT FASTINGPERFORMED BY: Retellity [employer] [facility] [id number] TSH 1.590 {uIU/mL} (Normal) Range: 0.450-4.500 :55 METABOLIC PANEL, Comments: PATIENT NOT FASTINGPERFORMED BY: CLARITA [facility] Yatsjo5640 Vivek Brown [place] [id number] Information: [id number] COMPREHENSIVE (72606) ALT (SGPT) 13 [iU]/L (Normal) Range: 0-32 [...] (Abnormal) Range: 65-99 :33 HgA1C , Office (59786) HgA1C , Office 6.7 % (Normal) Range: 4.6 - 7.1 :46 MICROALBUMIN: CREATININE RATIO Comments: PATIENT WAS FASTINGPERFORMED BY: [employer] Ohngzd9418 [facility] Hospital[facility] [place] [id number] (77653) AND (11469) Microalb/Creat Ratio 20.0 {mg/g_creat} (Normal) Range: 0.0-30.0 Microalbumin, Urine 21.7 ug/mL (Abnormal) Range: 0.0-17.0 Creatinine, Urine 108.5 mg/dL (Normal) Range: 15.0-278.0 :46 TSH (36628) Comments: PATIENT WAS FASTINGPERFORMED BY: [employer] Mobvmw6810 [facility] Hospitalbl[facility] [place] [id number] TSH 2.670 {uIU/mL} (Normal) Range: 0.450-4.500 :46 Vitamin D Hydroxy (36315) Comments: PATIENT WAS FASTINGPERFORMED BY: [employer] Odicma1352 [facility] Hospitalbl[facility] [place] [id number] Vitamin D, 25-Hydroxy 42.9 ng/mL (Normal) Range: 30.0-100.0 Comments: Vitamin D deficiency has been defined by the [place]isk ofMedicine and an Endocrine Society practice guideline as alevel of serum 25-OH vitamin D less than 20 ng/mL (1,2).The Endocrine Society went on to further define vitamin Dinsufficiency as a level between 21 and 29 ng/mL (2).1. IOM (Fisk of Medicine). 2010. Dietary reference intakes for calcium and D. [place]: The National Academies Press.2. Delma MF, Mckenna [place], Loree-Werner MACKENZIE, et al. Evaluation, treatment, and prevention of vitamin D deficiency: an Endocrine Society clinical practice guideline. JCEM. 2010; 96(7):1911-30. :46 CBC, PLATELETS & AUT DIFF Comments: PATIENT WAS FASTINGPERFORMED BY: [facility] Josdvk5424 [facility] [id number] Information: [id number] (33434) Immature Grans (Abs) 0.0 {x10E3/uL} (Normal) Range: [...] 3.77-5.28 WBC 8.7 {x10E3/uL} (Normal) Range: 3.4-10.8 27-Obc-580242:46 VITAMIN B-12 (CYANOCOBALAMIN) Comments: PATIENT WAS FASTINGPERFORMED BY: LabCoHackettstown Medical CenterGooezg6207 [facility] [id number] (56151) Vitamin B12 382 pg/mL (Normal) Range: 211-946 94-Agr-182658:46 METABOLIC PANEL, COMPREHENSIVE Comments: PATIENT WAS FASTINGPERFORMED BY: LabCoHackettstown Medical CenterZydyyw3561 [facility] [id number] (42290) ALT (SGPT) 15 [iU]/L (Normal) Range: 0-32 [...] Glucose, Serum 130 mg/dL (Abnormal) Range: 65-99 13-Igc-963097:46 LIPID PANEL (58165) Comments: PATIENT WAS FASTINGPERFORMED BY: LabCoHackettstown Medical CenterHugmik6440 [facility] [id number] LDL/HDL Ratio 3.4 {ratio_units} (Abnormal) Range: 0.0-3.2 LDL Cholesterol Calc 130 mg/dL (Abnormal) Range: 0-99 VLDL Cholesterol Peg 57 mg/dL (Abnormal) Range: 5-40 HDL Cholesterol 38 mg/dL (Abnormal) Comments: According to ATP-III Guidelines, HDL-C >59 mg/dL is considered anegative risk factor for CHD. Triglycerides 287 mg/dL (Abnormal) Range: 0-149 Cholesterol, Total 225 mg/dL (Abnormal) Range: 100-199 :44 HgA1C , Office (94166) HgA1C , Office 6.6 % (Normal) Range: 4.6 - 7.1 :43 CBC, Platelets & Auto Diff Comments: PATIENT NOT FASTINGPERFORMED BY: LabCoHackettstown Medical CenterVvlpci9328 [facility] [id number] Information: [id number] (39511) Immature Grans (Abs) 0.0 {x10E3/uL} (Normal) Range: [...] (Normal) Range: 3.4-10.8 :43 Metabolic Panel, Basic (90475) Comments: PATIENT NOT FASTINGPERFORMED BY: [facility]6370 [facility] [id number] Calcium, Serum 9.4 mg/dL (Normal) Range: 8.6-10.2 [...] mg/dL (Abnormal) Range: 65-99 :10 HANSA CULTURE-OTHER (92276) Comments: PATIENT NOT FASTINGPERFORMED BY: [facility]6370 [facility] [id number] Information: SRC:THRT [id number] Result 1 RFMNR (Normal) Comments: Mixed growth consisting of multiple gram negative rods and routinerespiratory vicente. Upper Respiratory Culture Final report (Normal) :56 Rapid Strep Test, Office (15935) Rapid Strep Test, Office Negative (Normal) :03 Blood Glucose , Office (89708) Blood Glucose , Office 150 (Normal) :14 PPD (05068) Comments: Lot: [id number]: 12/17Amt: 0.1mlRoute: intradermalSite: R FAGiven by: ANGEL Merlos SKIN TEST INTRADERMAL TB negative (Normal) :39 HgA1C , Office (12885) HgA1C , Office 6.4 % (Normal) Range: 4.6 - 7.1 :31 Microscopic Examination Comments: PATIENT WAS FASTINGPERFORMED BY: Retellity Jhkofa4959 [facility] [id number] Bacteria Few (Normal) Mucus Threads Present (Normal) Epithelial Cells (non renal) 0-10 {/hpf} (Normal) Range: 0 - 10 RBC 0-3 {/hpf} (Normal) Range: 0 - 3 WBC 0-5 {/hpf} (Normal) Range: 0 - 5 :31 MICROALBUMIN: CREATININE RATIO Comments: PATIENT WAS FASTINGPERFORMED BY: [employer] Aggplt2160 [facility] [id number] (22660) AND (57946) Microalb/Creat Ratio 12.6 {mg/g_creat} (Normal) Range: 0.0-30.0 Microalbumin, Urine 9.2 ug/mL (Normal) Range: 0.0-17.0 Creatinine, Urine 73.3 mg/dL (Normal) Range: 15.0-278.0 :31 CBC WITH MANUAL DIFF Comments: PATIENT WAS FASTINGPERFORMED BY: [employer] Mwuyif1525 [facility] [id number] Information: [id number] (47737) Immature Grans (Abs) 0.0 {x10E3/uL} (Normal) Range: [...] PANEL, COMPREHENSIVE Comments: PATIENT WAS FASTINGPERFORMED BY: LabCoHackettstown Medical CenterBgsafr7536 [facility] [id number] (50111) ALT (SGPT) 14 [iU]/L (Normal) Range: 0-32 [...] (Abnormal) Range: 65-99 :31 URINALYSIS, W/ MICRO (79135) Comments: PATIENT WAS FASTINGPERFORMED BY: SecretSalesMaria [facility] [id number] Microscopic Examination See below: (Normal) Microscopic Examination MICRON (Normal) Comments: Microscopic follows if indicated. Nitrite, Urine Negative (Normal) Urobilinogen,Semi-Qn 0.2 mg/dL (Normal) Range: 0.0-1.9 Bilirubin Negative (Normal) Occult Blood Negative (Normal) Ketones Negative (Normal) Glucose Negative (Normal) Protein Negative (Normal) Appearance Clear (Normal) Urine-Color Yellow (Normal) WBC Esterase Negative (Normal) pH 8.5 (Abnormal) Range: 5.0-7.5 Specific [place] 1.018 (Normal) Range: 1.005-1.030 :31 LIPID PANEL (76216) Comments: PATIENT WAS FASTINGPERFORMED BY: [employer]70 [facility] HospitalNtractiveAlleghany [facility] [id number] LDL Cholesterol Calc 75 mg/dL (Normal) Range: [...] B-12 (CYANOCOBALAMIN) Comments: PATIENT WAS FASTINGPERFORMED BY: [facility] [id number] (53764) Vitamin B12 299 pg/mL (Normal) Range: 211-946 :31 Vitamin D Hydroxy (50741) Comments: PATIENT WAS FASTINGPERFORMED BY: [facility] Swcmak6348 [facility] [id number] Vitamin D, 25-Hydroxy 31.2 ng/mL (Normal) Range: 30.0-100.0 Comments: Vitamin D deficiency has been defined by the [place]isk ofMedicine and an Endocrine Society practice guideline as alevel of serum 25-OH vitamin D less than 20 ng/mL (1,2).The Endocrine Society went on to further define vitamin Dinsufficiency as a level between 21 and 29 ng/mL (2).1. IOM (Fisk of Medicine). 2010. Dietary reference intakes for calcium and D. [place]: The National Academies Press.2. Delma MF, Mckenna ABDALLA, Dane MACKENZIE, et al. Evaluation, treatment, and prevention of vitamin D deficiency: an Endocrine Society clinical practice guideline. JCEM. 2010; 96(7):1911-30. :31 TSH (87973) Comments: PATIENT WAS FASTINGPERFORMED BY: [facility] Zjsqep4267 [facility] [id number] TSH 4.190 {uIU/mL} (Normal) Range: 0.450-4.500 :15 HgA1C , Office (97641) HgA1C , Office 6.4 % (Normal) Range: 4.6 - 7.1 :15 Blood Glucose , Office (84855) Blood Glucose , Office 141 (Normal) :19 [...] M.D.October 02, 2012 at 9:24 :48 PM [id number] Signed RB/RB If you are the referring physician and would like to consult with theradiologist who provided this interpretation, please contact Mame Mario at . If this radiologist is unavailable, you will bedirected to another radiologist to assist. If you are a patient with a question regarding this report, pleasecontactyour referring physician hari benítez. Professional Interpretation Provided By: [employer], Phone , These documents contain legally protected [...] on 10/02/122128 Sign by: Keith Crocker DO 51-Usy-73112:55 Vitamin D Hydroxy (94605) Comments: PATIENT NOT FASTINGPERFORMED BY: LabCoHackettstown Medical CenterXqcswi8912 [facility] [id number] Information: [id number] Vitamin D, 25-Hydroxy 39.5 ng/mL (Normal) Range: 30.0-100.0 Comments: Vitamin D deficiency has been defined by the [place]isk ofMedicine and an Endocrine Society practice guideline as alevel of serum 25-OH vitamin D less than 20 ng/mL (1,2).The Endocrine Society went on to further define vitamin Dinsufficiency as a level between 21 and 29 ng/mL (2).1. IOM (Fisk of Medicine). 2010. Dietary reference intakes for [...] Valenzuela M.D.September 17, 2012 at 9:02:07 AM [phone] Signed GP/GP If you are the referring physician and would like to consult with theradiologist damaso davenport provided this interpretation, please contact Mame Mccoy at [phone]. If this radiologist is unavailable, youwill be directed to another radiologist to assist. If you are a patient wi th a question regarding this report, pleasecontactyour referring physician directly. Professional Interpretation Provided By: [employer], Phone , These documents contain l egally [...] Range: 211-946 7:31 (Normal) Comments: Performed at: [address] [id number] Director: Demarco Mccormack PhD, Phone: [phone] 17-Sep-2012 BID 0.10 mg/dL Range: 0.00-0.30 7:31 (Normal) 03-Qid-86744:31 CBCMD ANC 3.6 3/uL (Normal) Range: 2.0-7.7 [...] IMPAIRED HOMEOSTASIS per A.D.A. criteria. :31 [facility] [place] See Note {CFU/mL} (Normal) Comments: COLONY COUNT [...] Simpson M.D.September 13, 2012 at 2:32:10 PM [id number] Signed DL/DL If you are the referring physician and would like to consult with theradiologist who provided this interpretation, please co ntact Mame Lancaster at [phone]. If this radiologist is unavailable, youwillbe directed to another radiologist to assist. If you are a patient with a question regarding this report, pleasecont actyour referring physician directly. Professional Interpretation Provided By: [employer], Phone , These documents contain legally protected [...] 09/13/12 1437 Sign by: Theo Simpson MD 68-Lfk-46556:36 THYROID Radiology Report See Note (Normal) Comments: [...] Valenzuela M.D.September 13 13 at 2:58:06 PM [phone] Signed GP/GP If you are the referring physician and would like to consult with theradiologist who provided this interpretation, please contact Brown chaidez M.D. at [phone]. If this radiologist is unavailable, youwill be directed to another radiologist to assist. If you are a patient with a question regarding this report, pleasecontactyour refer ring physician directly. Professional Interpretation Provided By: [employer], Phone , These documents contain legally protected [...] on 09/13/12 1503 Sign by: Nicolas ARAGON,Florian 53-Poj-78590:28 CRE Comments: CALL 8665 WITH RESULTSRESULTS CALLED TO DEBBIE 09/13/12 0801 AURA DIAZ.REPORT READ BACK BY SAME . GFR 105 mL/min (Normal) GFRAA 127 mL/min (Normal) CREAT 0.6 mg/dL (Normal) Range: 0.6-1.0 :23 URINE HANSA CULTURE-JEWELS COL Comments: PATIENT NOT FASTINGPERFORMED BY: LabCoHackettstown Medical CenterTmhjwj6163 [facility] [id number] Information: SRC:UR [id number] COUNT (68263) Result 1 NG36 (Normal) Comments: No growth in 36 - 48 hours. Urine Culture,Comprehensive Final report (Normal) :39 Urinalysis, Office (40812) UA - BILIRUBIN Negative (Normal) UA - BLOOD Non Hemolyzed Trace (Normal) UA - GLUCOSE Negative (Normal) UA - KETONES Negative mg/dL (Normal) UA - LEUKOCYTE ESTERASE Negative (Normal) UA - NITRITE Negative (Normal) UA - PH 6.5 (Normal) UA - PROTEIN Negative mg/dL (Normal) UA - SPECIFIC GRAVITY 1.015 (Normal) URINE UROBILINGN JEWELS TIMED Normal mg/dL (Normal) :35 HgA1C , Office (42226) HgA1C , Office 6.3 % (Normal) Range: 4.6 - 7.1 54-Krb-59952:35 Blood Glucose , Office (67432) Blood Glucose , Office 143 (Normal) :54 Comp. Metabolic Panel (14) Comments: PATIENT WAS FASTINGPERFORMED BY: CLARITA SymonicsHackettstown Medical CenterQvtcpy1708 [facility] [id number] Information: 07/08@830AM 07/09@830AM ALT (SGPT) 11 [iU]/L [...] Creatinine Clearance Comments: PATIENT WAS FASTINGPERFORMED BY: [facility]6370 [facility] [id number] Creatinine Clearance 70 mL/min (Abnormal) Range: 88-128 Comments: The above range is based on 1.73 square meter average body surfacearea. Creatinine, Ur 24hr 777.0 {mg/24_hr} (Abnormal) Range: 800.0-1800.0 Creatinine, Urine 37.9 mg/dL (Normal) Range: 15.0-278.0 :54 Lipid Panel With LDL/HDL Comments: PATIENT WAS FASTINGPERFORMED BY: [employer] Ydckbp6811 Doyle HammerKitMaria Par[facility] Health [id number] Ratio LDL/HDL Ratio 2.6 {ratio_units} (Normal) Range: [...] Qn, 24-Hr Comments: PATIENT WAS FASTINGPERFORMED BY: [employer] Vbknaw0957 Doyle HammerKitMaria [facility] [id number] Urine Prot,24hr calculated <30.8 {mg/24_hr} Range: 30.0-150.0 (Normal) Protein,Total,Urine <1.5 mg/dL (Normal) Range: 0.0-15.0 Comments: Verified by repeat analysis TSH 2.550 {uIU/mL} Comments: PATIENT WAS FASTINGPERFORMED BY: [employer] Fbaicr6384 [facility] [id number] :54 (Normal) Range: 0.450-4.500 Vitamin B12 271 pg/mL (Normal) Comments: PATIENT WAS FASTINGPERFORMED BY: [employer] Ftgktk9664 [facility] [id number] :54 Range: 211-946 :08 CBC WITH MANUAL DIFF Comments: PATIENT NOT FASTINGPERFORMED BY: [employer] Wafyar3066 Doyle [facility] GeneticsAlleghany Health [id number] Information: [id number] (74694) Immature Grans (Abs) 0.0 {x10E3/uL} (Normal) Range: [...] 3.77-5.28 WBC 4.0 {x10E3/uL} (Normal) Range: 4.0-10.5 7-Uqn-195025:01 FECAL OCCULT- Tubes sent home (58747) FECAL OCCULT HGB ASSAY, QUAL, 1-3 SIMULTANEOU [...] Valenzuela M.D.April 30, 2012 at 8:16:04 AM [phone] Signed GP/GP If you are the referring physician and would like to consult with theradiologist who prov ided this interpretation, please contact Mame Mccoy at [phone]. If this radiologist is unavailable, youwill be directed to another radiologist to assist. If you are a patient with a qu estion regarding this report, pleasecontactyour referring physician directly. Professional Interpretation Provided By: [employer], Phone , These documents contain legally protected [...] by: Nicolas ARAGON,Florian :44 HgA1C , Office (33561) HgA1C , Office 6.3 % (Normal) Range: 4.6 - 7.1 :44 Blood Glucose , Office (02318) Blood Glucose , Office 150 (Normal) Comments: has part of a cinnamon bun for breakfast :52 Microscopic Examination Comments: PATIENT WAS FASTINGPERFORMED BY: LabPlusFourSixHackettstown Medical CenterVdobfk7131 [facility] [id number] Bacteria None seen (Normal) Mucus Threads Present (Normal) Epithelial Cells (non renal) 0-10 {/hpf} (Normal) Range: 0 - 10 RBC 0-3 {/hpf} (Normal) Range: 0 - 3 WBC 0-5 {/hpf} (Normal) Range: 0 - 5 :52 CBC WITH MANUAL DIFF Comments: PATIENT WAS FASTINGPERFORMED BY: LabDanforth Pewterers6370 [facility] HospitalNtractiveAlleghany Health [id number] Information: [id number] (09085) Immature Grans (Abs) 0.0 {x10E3/uL} (Normal) Range: [...] (Normal) Range: 4.0-10.5 :52 URINALYSIS, W/ MICRO (77986) Comments: PATIENT WAS FASTINGPERFORMED BY: Retellity Slice [facility] [id number] Microscopic Examination See below: (Normal) Nitrite, Urine Negative (Normal) Urobilinogen,Semi-Qn 1.0 mg/dL (Normal) Range: 0.0-1.9 Bilirubin Negative (Normal) Occult Blood Negative (Normal) Ketones Negative (Normal) Glucose Negative (Normal) Protein 2+ (Abnormal) WBC Esterase Negative (Normal) Appearance Clear (Normal) Urine-Color Yellow (Normal) pH 7.0 (Normal) Range: 5.0-7.5 Specific [place] 1.029 (Normal) Range: 1.005-1.030 :52 TSH (63953) Comments: PATIENT WAS FASTINGPERFORMED BY: RetellityHackettstown Medical CenterSidqyg2066 [facility] [id number] TSH 2.060 {uIU/mL} (Normal) Range: 0.450-4.500 :52 METABOLIC PANEL, COMPREHENSIVE Comments: PATIENT WAS FASTINGPERFORMED BY: RetellityHackettstown Medical CenterGwnyhd7846 [facility] [id number] (39455) ALT (SGPT) 16 [iU]/L (Normal) Range: 0-40 [...] mg/dL (Abnormal) Range: 65-99 :52 LIPID PANEL (32685) Comments: PATIENT WAS FASTINGPERFORMED BY: Seeker WirelessAlleghany Health [id number] LDL/HDL Ratio 2.2 {ratio_units} (Normal) Range: 0.0-3.2 [...] CREATININE RATIO Comments: PATIENT WAS FASTINGPERFORMED BY: [employer]70 Zenda TechnologiesAlleghany Health [id number] (59976) AND (01612) Microalb/Creat Ratio 822.1 {mg/g_creat} (Abnormal) Range: 0.0-30.0 Microalbumin, Urine 844.3 ug/mL (Abnormal) Range: 0.0-17.0 Creatinine, Urine 102.7 mg/dL (Normal) Range: 15.0-278.0 13-Qyg-725998:18 HgA1C , Office (51518) HgA1C , Office 6.3 % (Normal) Range: 4.6 - 7.1 22-Mxu-149505:16 CHEST WITH CONTRAST Radiology Report See Note [...] radiologist regarding this report, please call our 72C0ebydcmm line @ Dictated on 12/14/11 1033 by Nicolas ARAGON,[facility] bed on 12/14/11 1438 by ITS IMPORTSign by Florian Valenzuela MD on 12/14/11 1439 Sign by: Florian Valenzuela MD 05-Dec-20119:19 CBC WITH MANUAL DIFF Comments: PATIENT WAS FASTINGPERFORMED BY: LabCoHackettstown Medical CenterTmoslr7480 [facility] [id number] Information: [id number] (17019) Immature Grans (Abs) 0.0 {x10E3/uL} (Normal) Range: [...] PANEL, COMPREHENSIVE Comments: PATIENT WAS FASTINGPERFORMED BY: [employer]6370 [facility] [id number] (24752) ALT (SGPT) 14 [iU]/L (Normal) Range: 0-40 [...] mg/dL (Abnormal) Range: 65-99 :19 LIPID PANEL (26902) Comments: PATIENT WAS FASTINGPERFORMED BY: Wh[employer]70 [facility] [id number]; appt 12-21-11 LDL/HDL Ratio 3.0 {ratio_units} Range: [...] {units} (Normal) Comments: PATIENT NOT FASTINGPERFORMED BY: [employer] Cytometerslin6370 [facility] [id number] BY: Symonics[address] [id number] 10:24 Range: 0-19 Comments: Negative <20 Weak positive 20 - 39 Moderate positive 40 - 59 Strong positive >59 8-Jhj-118807:24 EBV Panel (94270) Comments: PATIENT NOT FASTINGPERFORMED BY: [employer] Cytometerslin6370 [facility] [id number] BY: [employer] [address] [id number] Interpretation: SPRCS (Normal) Comments: EBV Interpretation Chart [...] <0.9 Equivocal 0.9 - 1.0 Positive >1.0 8-Xqx-370192:24 SED RATE ERYTHROCYTE Comments: PATIENT NOT FASTINGPERFORMED BY: [place] 0979470 [facility] [id number] BY: [address] [id number] (31497) Sedimentation Rate-Westergren 6 mm/h (Normal) Range: 0-40 4-Qqx-063952:24 C-REACTIVE PROTEIN (19661) Comments: PATIENT NOT FASTINGPERFORMED BY: [place] 0979470 [facility] [id number] BY: [address] [id number] C-Reactive Protein, Quant 2.1 mg/L (Normal) Range: 0.0-4.9 4-Lvf-343492:24 TSH (89713) Comments: PATIENT NOT FASTINGPERFORMED BY: [address] [id number] BY: [address] [id number] TSH 1.610 {uIU/mL} (Normal) Range: 0.450-4.500 3-Gue-326838:24 RHEUMATOID FACTOR-QUANT Comments: PATIENT NOT FASTINGPERFORMED BY: [place] 0979470 [facility] [id number] BY: [address] [id number] (07549) RA Latex Turbid. 8.4 {IU/mL} (Normal) Range: 0.0-13.9 3-Bce-872037:24 [place] (ANTINUCLEAR ANTIBODY) Comments: PATIENT NOT FASTINGPERFORMED BY: [place] 0979470 [facility] [id number] BY: LabCoJohnny [place]ille 734977 [facility] [id number] (87602) [place] Direct Negative (Normal) 5-Buz-558632:24 CBC WITH MANUAL DIFF Comments: PATIENT NOT FASTINGPERFORMED BY: [facility] Teejed8358 [facility] [id number] BY: LabCo[address] [id number] Inf ormation: [id number] (44983) Immature Grans (Abs) 0.0 {x10E3/uL} (Normal) Range: [...] 3.80-5.10 WBC 4.6 {x10E3/uL} (Normal) Range: 4.0-10.5 3-Wgb-755081:24 METABOLIC PANEL, Comments: PATIENT NOT FASTINGPERFORMED BY: CB [facility] Qqdjkh6608 Vivek NunnAt[facility] Health [facility] Centerhadley [place] [id number] BY: BN [facility] Dzdlxzmdkl2525 [facility] [id number]; appt 12-21-11 COMPREHENSIVE (71990) ALT (SGPT) 13 [iU]/L (Normal) Range: 0-40 [...] Glucose, Serum 118 mg/dL (Abnormal) Range: 65-99 5-Pmr-575263:51 HANSA CULTURE-OTHER (61453) Comments: PATIENT NOT FASTINGPERFORMED BY: CLARITA LabCoHackettstown Medical CenterCcsgxn7857 Vivek [facility] [id number] Information: SRC:AIDAN [id number] Result 1 RRF (Normal) Comments: Routine respiratory vicente Upper Respiratory Culture Final report (Normal) 07-Nov-20119:19 Rapid Strep Test, Office (28309) Rapid Strep Test, Office Negative (Normal) 35-Edt-308664:16 HgA1C , Office (00191) HgA1C , Office 6.1 % (Normal) Range: 4.6 - 7.1 00-Bcn-522138:16 Blood Glucose , Office (61398) Blood Glucose , Office 141 (Normal) 93-Gzj-770613:10 ABDOMEN/PELVIS WITH CONTRAST Radiology Report See Note [...] 1410 Si gn by: Florian Valenzuela MD 99-Ssd-177930:39 CHEST WITH CONTRAST Radiology Report See Note [...] noted, distal end at the level of G0ldllz. Normal osseous structures. There is limited visualization of the liver, spleen w ithout ademonstratedabnormality. IMPRESSION:No pulmonary embolism. No aortic dissection. Nonspecific two to 3-mmsubtle nodular density at right upper lobe, image 145 probably representatypically atelec tatic change. Dictated on 04/21/11 1104 by Leonard Odell MDranscribed on 04/22/11 1013 by ITS IMPORTSign by Jordan Odell MD on 04/22/11 1014 Sign by: Jordan Odell MD 98-Oxn-112741:29 MICROALBUMIN: CREATININE RATIO Comments: PATIENT WAS FASTINGPERFORMED BY: [facility]6370 [facility] [id number] (19233) AND (33862) Microalb/Creat Ratio 11.8 {mg/g_creat} (Normal) Range: 0.0-30.0 Microalbumin, Urine 7.3 ug/mL (Normal) Range: 0.0-17.0 Creatinine, Urine 61.9 mg/dL (Normal) Range: 15.0-278.0 :29 LIPID PANEL (78364) Comments: PATIENT WAS FASTINGPERFORMED BY: [employer]6370 [facility] [id number]; appt 07/25/11 VLDL Cholesterol Peg VLDLCH mg/dL [...] MANUAL DIFF Comments: PATIENT WAS FASTINGPERFORMED BY: [employer]6370 [facility] [id number] Information: [id number] (82964) Immature Grans (Abs) 0.0 {x10E3/uL} (Normal) Range: [...] 3.80-5.10 WBC 5.7 {x10E3/uL} (Normal) Range: 4.0-10.5 75-Wtq-460072:29 METABOLIC PANEL, COMPREHENSIVE Comments: PATIENT WAS FASTINGPERFORMED BY: LabCoHackettstown Medical CenterUyngsm1316 [facility] [id number] (68147) ALT (SGPT) 12 [iU]/L (Normal) Range: 0-40 [...] Glucose, Serum 120 mg/dL (Abnormal) Range: 65-99 45-Aoq-25858:46 THYROID Radiology Report See Note (Normal) Comments: [...] on 03/28/11 1149 Sign by: Jose R ARAGON,[facility] :10 CHEST, PA AND LATERAL Radiology Report [...] 1019 Sign by: ___ Florian Valenzuela MD 47-Ask-62982:47 SOFT TISSUE NECK WITH CONTRAST Radiology Report [...] malformation. Normal bilateral parotid glands. Normal bilateral corrections identification technician spaces.Normal bilateral parapharyngeal spaces. Normal bilateral [...] 01/24/11 1017 Sign by: Florian Valenzuela MD 87-Mih-70302:15 CBC WITH MANUAL DIFF Comments: PATIENT WAS FASTINGPERFORMED BY: LabMcl[facility]6370 [facility] [id number] Information: [id number] (68476) Immature Grans (Abs) 0.0 {x10E3/uL} (Normal) Range: [...] 3.80-5.10 WBC 7.0 {x10E3/uL} (Normal) Range: 4.0-10.5 84-Jbq-11662:15 METABOLIC PANEL, COMPREHENSIVE Comments: PATIENT WAS FASTINGPERFORMED BY: LabCoHackettstown Medical CenterZgbofm4792 [facility] [id number] (39558) ALT (SGPT) 10 [iU]/L (Normal) Range: 0-40 [...] mg/dL (Abnormal) Range: 65-99 :15 LIPID PANEL (04897) Comments: PATIENT WAS FASTINGPERFORMED BY: [employer]6370 [facility] [id number]; has f/u 04/20/11 LDL/HDL Ratio 2.5 {ratio_units} (Normal) Range: 0.0-3.2 LDL Cholesterol Calc 94 mg/dL (Normal) Range: 0-99 VLDL Cholesterol Peg 46 mg/dL (Abnormal) Range: 5-40 HDL Cholesterol 37 mg/dL (Abnormal) Comments: According to ATP-III Guidelines, HDL-C >59 mg/dL is considered anegative risk factor for CHD. Triglycerides 230 mg/dL (Abnormal) Range: 0-149 Cholesterol, Total 177 mg/dL (Normal) Range: 100-199 :15 HgA1C , Office (92679) Comments: PATIENT WAS FASTINGPERFORMED BY: [facility] Ntkahk1028 [facility] [id number] Glycohemoglobin (GHb), Total 7.7 % (Normal) Comments: Diabetic Adult <9.0 Healthy Adult 3.9 - 7.3 (DCCT/NGSP) Current ADA guide lines recommend a treatment goal of <7.0% HgbA1c for diabetic patients, which corresponds to a <9.0% Glycohemoglobin result with this method. :50 Blood Glucose , Office (23552) Blood Glucose , Office 160 (Normal) :48 [...] = 500 mg/dL :33 HgA1C , Office (65895) HgA1C , Office 6.5 % (Normal) Range: 4.6 - 7.1 :33 Blood Glucose , Office (24227) Blood Glucose , Office 154 (Normal) 85-Cdc-984186:11 Influenza A, H1N1, RT PCR Comments: PERFORMED BY: [employer] [id number] BY: [employer] [id number] Information: SRC:NL Subtype Novel H1N1 by Negative (Normal) PCR Type Influenza A by Negative (Normal) PCR Viral FLUABN (Normal) Comments: PERFORMED BY: [employer] [id number] BY: [employer] [id number] Culture,Rapid,Influenz Comments: Negative:No Influenza A or B detected. a :04 Urinalysis, Office (39453) UA - BILIRUBIN Negative (Normal) UA - BLOOD Negative (Normal) UA - GLUCOSE Negative (Normal) UA - KETONES Negative mg/dL (Normal) UA - LEUKOCYTE ESTERASE Negative (Normal) UA - NITRITE Negative (Normal) UA - PH 6.0 (Normal) UA - PROTEIN Negative mg/dL (Normal) UA - SPECIFIC GRAVITY 1.025 (Normal) URINE UROBILINGN JEWELS TIMED Normal mg/dL (Normal) :59 Vitamin D Hydroxy (20267) Comments: PATIENT WAS FASTINGPERFORMED BY: [employer] [id number] Vitamin D, 25-Hydroxy 32.0 ng/mL (Normal) Range: 32.0-100.0 Comments: Recent studies consider the lower limit of 32.0 ng/mL to be athreshold for optimal health.Jose MAYA. J Nutr. 2004;135(2):317-22. 4:59 METABOLIC PANEL, Comments: PATIENT WAS FASTINGPERFORMED BY: LabCoHackettstown Medical CenterMhiucb7195 [facility] [id number] Information: [id number] COMPREHENSIVE (23096) ALT (SGPT) 9 [iU]/L (Normal) Range: 0-40 [...] mg/dL (Abnormal) Range: 65-99 :59 LIPID PANEL (31628) Comments: PATIENT WAS FASTINGPERFORMED BY: [employer]6370 [facility] [id number] LDL Cholesterol Calc 87 mg/dL (Normal) Range: [...] MANUAL DIFF Comments: PATIENT WAS FASTINGPERFORMED BY: LabDanforth [employer]6370 [facility] [id number] Information: ADD [id number] AND DRAW FEE [id number] (35523) Immature Grans (Abs) 0.0 {x10E3/uL} (Normal) Range: [...] CREATININE RATIO Comments: PATIENT WAS FASTINGPERFORMED BY: RetellityHackettstown Medical CenterGbqvkl0755 [facility] [id number] (08958) AND (60816) Creatinine, Urine 87.5 mg/dL (Normal) Range: 15.0-278.0 Microalb/Creat Ratio 4.5 {mg/g_creat} (Normal) Range: 0.0-30.0 Microalbumin, Urine 3.9 ug/mL (Normal) Range: 0.0-17.0 :57 METABOLIC PANEL, COMPREHENSIVE Comments: PATIENT WAS FASTINGPERFORMED BY: SymonicsHackettstown Medical CenterGjacqi6104 [facility] [id number] (55100) ALT (SGPT) 12 [iU]/L (Normal) Range: 0-40 [...] mg/dL (Abnormal) Range: 65-99 :57 LIPID PANEL (07135) Comments: PATIENT WAS FASTINGPERFORMED BY: [employer] Qpanri8495 [facility] [id number] LDL Cholesterol Calc 138 mg/dL (Abnormal) Range: 0-99 LDL/HDL Ratio 2.9 {ratio_units} (Normal) Range: 0.0-3.2 HDL Cholesterol 47 mg/dL (Normal) Comments: According to ATP-III Guidelines, HDL-C >59 mg/dL is considered anegative risk factor for CHD. VLDL Cholesterol Peg 29 mg/dL (Normal) Range: 5-40 Cholesterol, Total 214 mg/dL (Abnormal) Range: 100-199 Triglycerides 147 mg/dL (Normal) Range: 0-149 :05 HgA1C , Office (36402) HgA1C , Office 6.5 % (Normal) Range: 4.6 - 7.1 :05 Blood Glucose , Office (09307) Blood Glucose , Office 140 (Normal) :35 MICROALBUMIN: CREATININE RATIO Comments: PATIENT WAS FASTINGPERFORMED BY: LabCoHackettstown Medical CenterLejdxc2773 [facility] [id number] (85893) AND (91219) Creatinine, Urine 94.9 mg/dL (Normal) Range: 15.0-278.0 Microalb/Creat Ratio 10.7 {mg/g_creat} (Normal) Range: 0.0-30.0 Microalbumin, Urine 10.2 ug/mL (Normal) Range: 0.0-17.0 :35 CBC WITH MANUAL DIFF Comments: PATIENT WAS FASTINGPERFORMED BY: Ella HealthCoHackettstown Medical CenterUetlsx7438 [facility] [id number] Information: [id number] (32598) Baso (Absolute) 0.0 {x10E3/uL} (Normal) Range: 0.0-0.2 [...] PANEL, COMPREHENSIVE Comments: PATIENT WAS FASTINGPERFORMED BY: LabCoHackettstown Medical CenterZktazx9540 [facility] [id number] (62820) ALT (SGPT) 12 [iU]/L (Normal) Range: 0-40 [...] mg/dL (Abnormal) Range: 65-99 :35 LIPID PANEL (97494) Comments: PATIENT WAS FASTINGPERFORMED BY: [facility] Krmids0007 Vivek [place] [id number] LDL Cholesterol Calc 103 mg/dL (Abnormal) Range: 0-99 LDL/HDL Ratio 3.0 {ratio_units} (Normal) Range: 0.0-3.2 HDL Cholesterol 34 mg/dL (Abnormal) Comments: According to ATP-III Guidelines, HDL-C >59 mg/dL is considered anegative risk factor for CHD. VLDL Cholesterol Peg 38 mg/dL (Normal) Range: 5-40 Cholesterol, Total 175 mg/dL (Normal) Range: 100-199 Triglycerides 190 mg/dL (Abnormal) Range: 0-149 :31 HgA1C , Office (08507) HgA1C , Office 6.2 % (Normal) Range: 4.6 - 7.1 :31 Blood Glucose , Office (87357) Blood Glucose , Office 113 (Normal) :03 BILAT SCRN DIGITAL & CAD Radiology Report See Note (Normal) Comments: Exam Number: [id number] MAMMOGRAPHY - BILATERAL SCREENING INDICATION:Routine annual screening [...] of attaching a ResultCode to this exam.ADDENDUM: [id number] HPBI/MDS Reported By: BRIAN JIMENEZ M.D. :02 DEXA BONE DENSITY STUDY () Radiology Report See Note (Normal) Comments: Exam Number: [id number] CLINICAL:Assess bone density EXAMINATION:DUAL ENERGY X-RAY ABSORPTIOMETRY / DEXA. TECHNIQUE:Bone Density Measurements (BMD) of left hip and left forearm wereobtained using a Corebook dual energy scanner. COMPARISON:A report from 2001 [...] NIH Osteoporosis and Related Bone Diseases http://www.osteo.org2. Clearing Distribution Clerk ational Society for Clinical Densitometryhttp://www.iscd.org3. National Osteoporosis Foundation http://www.nof.org Reported By: NELLY LINCOLN M.D. :11 HgA1C , Office (75007) HgA1C , Office 6.2 % (Normal) Range: 4.6 - 7.1 :11 Blood Glucose , Office (74255) Blood Glucose , Office 186 (Normal) :25 TSH (11702) Comments: PATIENT WAS FASTINGPERFORMED BY: LabCo Kbpytm2336 [facility] [id number] TSH 2.340 {uIU/mL} (Normal) Range: 0.450-4.500 :25 METABOLIC PANEL, COMPREHENSIVE Comments: PATIENT WAS FASTINGPERFORMED BY: Lab[facility] Btimre8659 [facility] [id number] (38176) ALT (SGPT) 10 [iU]/L (Normal) Range: 0-40 [...] DIFF Comments: PATIENT WAS FASTINGPERFORMED BY: LabMcl[facility] Region6370 [facility] [id number] Information: ADD DRAW FEE [id number] AND J0 4089 (33222) Baso (Absolute) 0.0 {x10E3/uL} (Normal) Range: 0.0-0.2 [...] {x10E3/uL} (Normal) Range: 4.0-10.5 :25 LIPID PANEL (01537) Comments: PATIENT WAS FASTINGPERFORMED BY: [facility]6370 [facility] [id number] LDL/HDL Ratio 2.6 {ratio_units} (Normal) Range: 0.0-3.2 Cholesterol, Total 183 mg/dL (Normal) Range: 100-199 HDL Cholesterol 34 mg/dL (Abnormal) Comments: According to ATP-III Guidelines, HDL-C >59 mg/dL is considered anegative risk factor for CHD. LDL Cholesterol Calc 90 mg/dL (Normal) Range: 0-99 Triglycerides 295 mg/dL (Abnormal) Range: 0-149 VLDL Cholesterol Peg 59 mg/dL (Abnormal) Range: 5-40 :02 HgA1C , Office (32691) HgA1C , Office 6.2 % (Normal) Range: 4.6 - 7.1 :02 Blood Glucose , Office (66270) Blood Glucose , Office 152 (Normal) :02 HEPATIC FUNCTION PANEL Comments: PATIENT WAS FASTINGPERFORMED BY: SymonicsHackettstown Medical CenterPsgbvi0506 [facility] [id number] (91394) Alkaline Phosphatase, S 63 [iU]/L (Normal) Range: 25-165 ALT (SGPT) 13 [iU]/L (Normal) Range: 0-40 AST (SGOT) 14 [iU]/L (Normal) Range: 0-40 Bilirubin, Direct 0.10 mg/dL (Normal) Range: 0.00-0.40 Bilirubin, Total 0.4 mg/dL (Normal) Range: 0.1-1.2 Albumin, Serum 4.6 g/dL (Normal) Range: 3.6-4.8 Protein, Total, Serum 7.0 g/dL (Normal) Range: 6.0-8.5 :02 LIPID PANEL (16582) Comments: PATIENT WAS FASTINGPERFORMED BY: [facility]6370 [facility] [id number] LDL Cholesterol Calc 114 mg/dL (Abnormal) Range: 0-99 LDL/HDL Ratio 3.6 {ratio_units} (Abnormal) Range: 0.0-3.2 HDL Cholesterol 32 mg/dL (Abnormal) Comments: According to ATP-III Guidelines, HDL-C >59 mg/dL is considered anegative risk factor for CHD. Triglycerides 319 mg/dL (Abnormal) Range: 0-149 VLDL Cholesterol Peg 64 mg/dL (Abnormal) Range: 5-40 Cholesterol, Total 210 mg/dL (Abnormal) Range: 100-199 :45 HgA1C , Office (52899) HgA1C , Office 6.2 % (Normal) Range: 4.6 - 7.1 :45 Blood Glucose , Office (05942) Blood Glucose , Office 193 (Normal) :34 MICROALBUMIN: CREATININE RATIO Comments: PATIENT WAS FASTINGPERFORMED BY: CLARITA [employer]6370 [facility] [id number] (42709) AND (56841) Creatinine, Urine 126.3 mg/dL (Normal) Range: 15.0-278.0 Microalb/Creat Ratio 7.6 {mg/g_creat} (Normal) Range: 0.0-30.0 Microalbumin, Urine 9.6 ug/mL (Normal) Range: 0.0-17.0 :34 METABOLIC PANEL, COMPREHENSIVE Comments: PATIENT WAS FASTINGClinical Information: ADD [id number] CC:3302PERFORMED BY: [employer]6370 [facility] [id number] (90595) A/G Ratio 1.7 (Normal) Range: 1.1-2.5 Albumin, [...] FUNCTION PANEL Comments: PATIENT WAS FASTINGPERFORMED BY: [employer] LabDanforth [facility]6370 [facility] [id number] (31158) Bilirubin, Direct 0.08 mg/dL (Normal) Range: 0.00-0.40 :34 LIPID PANEL (43470) Comments: PATIENT WAS FASTINGPERFORMED BY: [employer] LabPlusFourSixHackettstown Medical CenterGevrpu4031 [facility] [id number] Cholesterol, Total 186 mg/dL (Normal) Range: 100-199 HDL Cholesterol 38 mg/dL (Abnormal) Comments: According to ATP-III Guidelines, HDL-C >59 mg/dL is considered anegative risk factor for CHD. LDL Cholesterol Calc 102 mg/dL (Abnormal) Range: 0-99 LDL/HDL Ratio 2.7 {ratio_units} (Normal) Range: 0.0-3.2 Triglycerides 232 mg/dL (Abnormal) Range: 0-149 VLDL Cholesterol Peg 46 mg/dL (Abnormal) Range: 5-40 37-Ubh-694158:36 HgA1C , Office (94077) HgA1C , Office 6.3 % (Normal) Range: 4.6 - 7.1 15-Ebh-603734:36 Blood Glucose , Office (06329) Blood Glucose , Office 129 (Normal) 7-Uhz-924796:12 BILAT SCRN DIGITAL & CAD Radiology Report See Note (Normal) Comments: Exam Number: [id number] MAMMOGRAM, BILATERAL SCREENING DIGITAL AND CAD HISTORY: [...] 1992 (MQSA). The mammograms werealso examined w [employer] computer-aided detection software ([employer], [employer], [employer].). Reported By: BRIAN JIMENEZ M.D. 69-Qcm-019257:57 HgA1C , Office (94179) HgA1C , Office 6.3 % (Normal) Range: 4.6 - 7.1 03-Crz-529334:57 Blood Glucose , Office (59981) Blood Glucose , Office 111 (Normal) :40 [...] for patient's is the eGFRmultiplied by 1.212. [facility] Laboratory uses the abbreviated Modification of [...] Disease W/O Kidney Disease>/= 90 Stage One Cktoqr89 - 89 Stage Two Suspect Decreased GFR30 [...] (Normal) Range: 5-40 :30 HgA1C , Office (65894) HgA1C , Office 6.2 % (Normal) Range: 4.6 - 7.1 :30 Blood Glucose , Office (81737) Blood Glucose , Office 167 (Normal) :33 [...] (Normal) Range: 211-911 :51 HgA1C , Office (06257) HgA1C , Office 5.9 % (Normal) Range: 4.6 - 7.1 28-Lrj-274253:51 Blood Glucose , Office (17571) Blood Glucose , Office 113 (Normal) :49 [...] >240 mg/dL High Risk :01 Urinalysis, Office (44846) UA - BILIRUBIN Negative (Normal) UA - [...] Comments: GLU,2HPPG 75gm GLUC PPG GLUP from 0603:U43313H. 20-Tzn-592369:44 CHEST, PA AND LATERAL Radiology Report See Note (Normal) Comments: Exam Number: [id number] PA AND LATERAL CHEST HISTORY Being done for chest pain. FINDINGSCardiac configuration is upper limits of normal to mildly enlarged.There is mild elevation, left hemid iaphragm. No acute infiltrate,effusion, or pneumothorax is identified. There is moderate spurformation noted in the lower dorsal spine. IMPRESSION1. A number of chronic changes.2. No acute infiltrate. Reported By: CADE MERCER M.D. 78-Fbp-270568:20 URINE HANSA CULTURE-IDENTIFICATN Comments: PATIENT NOT FASTINGClinical Information: ADD [id number] PERFORMED BY: LabCoHackettstown Medical CenterUhvgby9214 [facility] [id number] (43278) Antimicrobial MARY (Normal) Comments: S = Susceptible; [...] mL (Normal) Urine Final report Culture,Comprehensive (Normal) 05-Gmg-50804:00 CBC With Differential/Platelet Comments: PATIENT NOT FASTINGPERFORMED BY: [facility] Ywdiyh0430 [facility] [id number] Baso (Absolute) 0.1 {x10E3/uL} (Normal) Range: 0.0-0.2 [...] 11.7-15.0 WBC 6.0 {x10E3/uL} (Normal) Range: 4.0-10.5 97-Bmg-34298:00 Comp. Metabolic Panel (14) Comments: PATIENT NOT FASTINGPERFORMED BY: [facility] Avuonr7018 [facility] [id number] A/G Ratio 1.7 (Normal) Range: 1.1-2.5 Albumin, [...] Serum 116 mg/dL (Abnormal) Range: 65-99 If -Nicaraguan >60 mL/min (Normal) Range: 60-128 Comments: Note: [...] (Normal) Range: 0.34-4.82 :33 HgA1C , Office (59349) HgA1C , Office 5.2 % (Normal) Range: 4.6 - 7.1 :33 Blood Glucose , Office (44155) Blood Glucose , Office 172 (Normal) :08 FEMUR,2 VIEWS Radiology Report See Note (Normal) Comments: Exam Number: [id number] AP AND LATERAL LEFT TIBIA/FIBULA. HISTORYBeing done [...] Report See Note (Normal) Comments: Exam Number: [id number] AP AND LATERAL LEFT TIBIA/FIBULA. HISTORYBeing done [...] (Normal) Range: 0.34-4.82 :53 HgA1C , Office (39703) Comments: done-[facility] HgA1C , Office 5.3 % (Normal) Range: 4.6 - 7.1 :53 Blood Glucose , Office (86824) Comments: done-[facility] Blood Glucose , Office 94 (Normal) [...] Range: 6.4-8.2 :18 Blood Glucose , Office (75307) Blood Glucose , Office 5.6 (Normal) :18 HgA1C , Office (54356) HgA1C , Office 142 % (Abnormal) Range: [...] Range: 6.4-8.2 :05 COMPLETE UA Comments: COMMENTS: [facility] 7 DR Webster*: NOT APPLICABLE [...] :00 AMIE 25 U/L (Normal) Comments: COMMENTS: [facility] DR Webster*: NOT APPLICABLE Range: 25-115 :00 CBCD Comments: COMMENTS: [facility] DR Webster*: NOT APPLICABLE BASO% 0.1 [...] 11.6-14.6 WBC 5.3 K/mm3 (Normal) Range: 4.4-11.0 17-Sjc-670839:00 COMP METABOLIC Comments: COMMENTS: BED 7 DR [...] T PROT 8.0 g/dL (Normal) Range: 6.4-8.2 60-Sjo-915690:00 D BILI 0.14 mg/dL (Normal) Comments: COMMENTS: [...] mg/dL VLDL 50 mg/dL (Abnormal) Range: 5-40 6-Uyd-053698:02 URINALYSIS (74849) URINALYSIS Comments: uNABLE TO PUT RESULTS IN CORRECTLY- VVWJUUB-EGHYADCLXPJP-PUUFHQFVFOC-NEGS.G.-1.545HWHMN-TAVGKGRMGL-5.4RUKIJMK-VCBTSVVZXTA-8.2DVAFUNWB-ZOEUVISXLBTUEKCTHJ-VINWO (Normal) :09 HgA1C , Office (45108) HgA1C , Office 5.4 % (Normal) Range: 4.6 - 7.1 :09 Blood Glucose , Office (17080) Blood Glucose , Office 161 (Normal) Plan [...] II, controlled, with no complications CAD in bent[place] artery : Reviewed Lamination Operator Letter Indication: CAD in [place] artery Mixed hyperlipidemia : Cholesterol mgmt Indication: [...] B12 shots montly Indication: Macrocytosis CAD in bent[place] artery : Reviewed Lamination Operator Letter Indication: CAD in benton artery CAD in benton artery : Continue Current Prescription(s) Indication: CAD in bent[place] artery Diabetes mellitus type 2, uncontrolled, without [...] Pulmonary hypertension, moderate to severe : Reviewed Lamination Operator Letter Indication: Pulmonary hypertension, moderate to severe [...] S/P laminectomy with spinal fusion : Reviewed Lamination Operator Letter Indication: S/P laminectomy with spinal fusion Macrocytosis without anemia : Reviewed Lab Indication: Macrocytosis without anemia Diabetes mellitus type II, controlled, with no complications : Reviewed Diagnostic Tests Indication: Diabetes mellitus type II, controlled, with no complications S/P laminectomy with spinal fusion : Reviewed Lamination Operator Letter Indication: S/P laminectomy with spinal fusion [...] pneumonia) CAP (community acquired pneumonia) : Reviewed Lamination Operator Letter Indication: CAP (community acquired pneumonia) Sinusitis, bacterial : Eprescribed prescriptions (G8553) Indication: Sinusitis, bacterial Pulmonary hypertension, moderate to severe : Reviewed Diagnostic Tests Indication: Pulmonary hypertension, moderate to severe Nonsmoker : Eprescribed prescriptions (G8553) Indication: Nonsmoker Bronchitis : Reviewed Diagnostic Tests Indication: Bronchitis Bronchitis : Reviewed Lamination Operator Letter Indication: Bronchitis Bronchitis : *Antibiotic Usage [...] UP IN 3 DAYS with [facility] Indication: EDEMA, NOS Benign paroxysmal positional vertigo : Reviewed Lamination Operator Letter Indication: Benign paroxysmal positional vertigo Acute [...] MONTHS Indication: Mixed hyperlipidemia Planned Observations TSH (18282)Indication: Diabetes mellitus type 2, uncontrolled, without complications On: 42 Request URINALYSIS, W/ MICRO (15805)Indication: Diabetes mellitus type 2, uncontrolled, without complications On: :42 Request MICROALBUMIN: CREATININE RATIO (82132) AND (89505)Indication: Diabetes mellitus type 2, uncontrolled, without complications On: :42 Request METABOLIC PANEL, COMPREHENSIVE (91800)Indication: Hypertensive heart disease without heart failure On: 0-Igv-187319:42 Request LIPID PANEL (52061)Indication: Mixed hyperlipidemia On: :42 Request CBC W/AUTO DIFF WBC (72323)Indication: Hypertensive heart disease without heart failure On: 7-Nay-065209:42 Request LIPID PANEL (52854)Indication: Diabetes mellitus type 2, uncontrolled, without complications On: 9-Qxy-041838:25 Request CBC WITH MANUAL DIFF (28231)Indication: Elevated platelet count On: :11 Request LIPASE (22622)Indication: Flu-like symptoms On: 8-Jbp-890001:53 Request Comments: stat POTASSIUM SERUM (57882)Indication: Hypokalemia On: :40 Request MAGNESIUM (54872)Indication: Hypomagnesemia On: 43-Gmy-170596:40 Request Renal function Panel (75739)Indication: Hypokalemia On: 76-Yfg-126302:48 Request POTASSIUM SERUM (22205)Indication: Hypokalemia (Renamed from Decreased potassium in the blood) On: 03-Nov-20169:06 Request POTASSIUM SERUM (02429)Indication: Hypokalemia (Renamed from Decreased potassium in the blood) On: 95-Dan-030342:55 Request POTASSIUM SERUM (61000)Indication: Hypokalemia On: 0-Lbu-070495:22 Request MAGNESIUM (15769)Indication: Hypokalemia On: 0-Ukx-303549:21 Request URINE HANSA CULTURE-JEWELS COL COUNT (93363)Indication: UTI (urinary tract infection), bacterial On: :54 Request MAGNESIUM (52096)Indication: Abdominal pain On: 87-Tha-270323:45 Request Comments: do in 3 weeks CALCIFEDIOL (71378)Indication: Vitamin D deficiency On: 82-Xbr-719624:14 Request LIPID PANEL (46999)Indication: Mixed hyperlipidemia On: 95-Pyf-418847:13 Request VITAMIN B12 AND FOLATES (35682)Indication: B12 deficiency anemia On: 15-Nao-645614:13 Request TSH (THYROID STIMULATING HORMONE) (31219)Indication: Thyroid Nodule On: :13 Request METABOLIC PANEL, COMPREHENSIVE (23843)Indication: Mixed hyperlipidemia On: :13 Request CBC WITH MANUAL DIFF (66675)Indication: Hypertensive heart disease without heart failure On: 24-Rcl-503859:13 Request MICROALBUMIN: CREATININE RATIO (08901) AND (29814)Indication: Hypertensive heart disease without heart failure On: 50-Awv-956270:13 Request MYOGLOBIN (75374)Indication: Sweating abnormality On: 97-Mjw-802104:11 Request CPK MB FRACTION (21850)Indication: Sweating abnormality On: 76-Wuk-744072:11 Request ASSAY, TROPONIN, QUANTITATIVE (aka Troponin I) ([id number])Indication: Sweating abnormality On: 08-Hkf-822273:11 Request METABOLIC PANEL, BASIC (35017)Indication: Hypokalemia (Renamed from Decreased potassium in the blood) On: 08-Fxg-605512:16 Request PARATHORMONE (84770)Indication: Hypocalcemia On: 38-Bxm-952961:23 Request Magnesium (47747)Indication: Hypokalemia (Renamed from Decreased potassium in the blood) On: 31-Eli-475951:22 Request CALCIUM, IONIZED (03474)Indication: Hypocalcemia On: 94-Zrs-863045:21 Request VITAMIN B12 AND FOLATES (05514)Indication: Macrocytosis without anemia On: 05-Uas-862841:39 Request SMEAR+INTERP FLUOR STAIN (01642)Indication: Macrocytosis without anemia On: 22-Vgn-162710:37 Request MICROALBUMIN: CREATININE RATIO (44048) AND (22440)Indication: Hypertensive heart disease without heart failure On: 67-Stz-380395:16 Request CBC W/AUTO DIFF WBC (34236)Indication: Hypertensive heart disease without heart failure On: 05-Gvo-868074:16 Request METABOLIC PANEL, COMPREHENSIVE (11588)Indication: Hypertensive heart disease without heart failure On: 10-Cqn-252298:16 Request LIPID PANEL (23504)Indication: Mixed hyperlipidemia On: 24-Wju-375978:16 Request Vitamin D Hydroxy (09960)Indication: Vitamin D deficiency On: 67-Nrw-390000:15 Request VITAMIN B-12 (CYANOCOBALAMIN) (24779)Indication: B12 deficiency anemia On: 50-Opn-757244:15 Request METABOLIC PANEL, COMPREHENSIVE (39297)Indication: Fatigue On: :07 Request LIPID PANEL (27025)Indication: Mixed hyperlipidemia On: :07 Request VITAMIN B-12 (CYANOCOBALAMIN) (56332)Indication: B12 deficiency anemia On: :07 Request CBC (AUTO) ([id number])Indication: B12 deficiency anemia On: :07 Request Vitamin D Hydroxy (44969)Indication: Vitamin D deficiency On: :06 Request HgA1C , Office (00694)Indication: Diabetes mellitus type II, controlled, with no complications On: :55 Request CBC, PLATELETS & MANUAL DIFF (30015)Indication: Hypokalemia (Renamed from Decreased potassium in the blood) On: :08 Request Comments: recheck before 11-07-14 MICROALBUMIN: CREATININE RATIO (83353) AND (03210)Indication: Proteinuria On: :49 Request VITAMIN B-12 (CYANOCOBALAMIN) (04733)Indication: B12 deficiency anemia On: :56 Request Vitamin D Hydroxy (04238)Indication: Vitamin D deficiency On: :56 Request CBC WITH MANUAL DIFF (35154)Indication: B12 deficiency anemia On: :55 Request METABOLIC PANEL, COMPREHENSIVE (36299)Indication: Hypertensive heart disease without heart failure On: :55 Request LIPID PANEL (35018)Indication: Mixed hyperlipidemia On: :55 Request LIPID PANEL (88474)Indication: Mixed hyperlipidemia On: :31 Request TSH (75645)Indication: Thyroid Nodule On: :31 Request MICROALBUMIN: CREATININE RATIO (51441) AND (07636)Indication: Diabetes mellitus type II, controlled, with no complications On: :31 Request METABOLIC PANEL, COMPREHENSIVE (97344)Indication: Diabetes mellitus type II, controlled, with no complications On: :31 Request URINALYSIS, W/ MICRO (50590)Indication: Proteinuria On: :30 Request Vitamin D Hydroxy (51331)Indication: Vitamin D deficiency On: :30 Request CBC, PLATELETS & AUT DIFF ([id number])Indication: B12 deficiency anemia On: :29 Request VITAMIN B-12 (CYANOCOBALAMIN) (98159)Indication: B12 deficiency anemia On: :29 Request HgA1C , Office (94762)Indication: Diabetes mellitus type II, controlled, with no complications On: :03 Request TSH ([id number])Indication: Thyroid Nodule On: :39 Request LIPID PANEL (47394)Indication: Mixed hyperlipidemia On: :38 Request CBC WITH MANUAL DIFF ([id number])Indication: Diabetes mellitus type II, controlled, with no complications On: :38 Request METABOLIC PANEL, COMPREHENSIVE (96878)Indication: Diabetes mellitus type II, controlled, with no complications On: :38 Request Vitamin D Hydroxy (18586)Indication: Vitamin D deficiency On: :22 Request CBC, PLATELETS & AUT DIFF ([id number])Indication: B12 deficiency anemia On: 27-Dnj-06640:22 Request VITAMIN B-12 (CYANOCOBALAMIN) (12168)Indication: B12 deficiency anemia On: :22 Request CBC WITH MANUAL DIFF ([id number])Indication: Diabetes mellitus type II, controlled, with no complications On: :12 Request METABOLIC PANEL, COMPREHENSIVE (21453)Indication: Diabetes mellitus type II, controlled, with no complications On: 25-Gpk-95538:12 Request HEPATIC FUNCTION PANEL ([id number])Indication: Mixed hyperlipidemia On: 11-Gmg-47070:10 Request LIPID PANEL (24196)Indication: Mixed hyperlipidemia On: 73-Apn-56093:10 Request VITAMIN B-12 (CYANOCOBALAMIN) (23967)Indication: B12 deficiency anemia On: 55-Zme-84977:02 Request TSH (08591)Indication: Dysthymic disorder On: 86-Sum-305673:17 Request CREATININE CLEARANCE (22027)Indication: Proteinuria On: 68-Ssl-429158:15 Request 24 hour urine for Protein (85428)Indication: Proteinuria On: 88-Xcn-190950:15 Request VITAMIN B-12 (CYANOCOBALAMIN) (96325)Indication: B12 deficiency anemia On: 56-Upb-218825:15 Request CCP ANTIBODY ([id number])Indication: Pain in unspecified joint On: 07-Nov-20119:47 Request LIPID PANEL ([id number])Indication: Mixed hyperlipidemia On: 07-Wpw-965007:45 Request OVA & PARASITE DIR SMEAR (82801)Indication: Diarrhea On: :52 Request LEUKOCYTE COUNT, FECAL ([id number])Indication: Diarrhea On: :52 Request Clostridium difficile Toxin A+B, EIA (95922)Indication: Diarrhea On: :52 Request HANSA CULTURE-STOOL (36547)Indication: Diarrhea On: :52 Request CBC WITH MANUAL DIFF ([id number])Indication: Hypertensive heart disease without heart failure On: 96-Isj-991548:11 Request METABOLIC PANEL, COMPREHENSIVE (49850)Indication: Hypertensive heart disease without heart failure On: 36-Mqz-014357:11 Request LIPID PANEL ([id number])Indication: Mixed hyperlipidemia On: 17-Buu-209813:11 Request Influenza B Ag ([id number])Indication: Myalgia and myositis On: 74-Ieu-46111:06 Request Influenza A Ag ([id number])Indication: Myalgia and myositis On: 18-Odx-81487:06 Request METABOLIC PANEL, COMPREHENSIVE (40733)Indication: Uncomplicated herpes simplex On: 38-App-004753:13 Request MICROALBUMIN: CREATININE RATIO (54802) AND ([id number])Indication: Abnormal glucose tolerance test On: :32 Request METABOLIC PANEL, COMPREHENSIVE (84601)Indication: Hypertensive heart disease without heart failure On: :32 Request HEPATIC FUNCTION PANEL (40666)Indication: Mixed hyperlipidemia On: :31 Request LIPID PANEL (87952)Indication: Mixed hyperlipidemia On: :31 Request TSH ([id number])Indication: Abnormal glucose tolerance test On: 75-Zwg-061885:19 Request LIPID PANEL ([id number])Indication: Mixed hyperlipidemia On: 57-Wrh-764626:15 Request HEPATIC FUNCTION PANEL (17771)Indication: Mixed hyperlipidemia On: 44-Ilh-863129:15 Request METABOLIC PANEL, COMPREHENSIVE (15171)Indication: Hypertensive heart disease without heart failure On: :56 Request HEPATIC FUNCTION PANEL (67985)Indication: Mixed hyperlipidemia On: :56 Request LIPID PANEL (44045)Indication: Mixed hyperlipidemia On: :56 Request MICROALBUMIN: CREATININE RATIO (02818) AND (55385)Indication: Abnormal glucose tolerance test On: :30 Request CBC WITH MANUAL DIFF (58363)Indication: Abnormal glucose tolerance test On: :30 Request VITAMIN B-12 (CYANOCOBALAMIN) (76556)Indication: Tinnitus, unspecified laterality On: :24 Request METABOLIC PANEL, COMPREHENSIVE (59528)Indication: Hypertensive heart disease without heart failure On: :24 Request LIPID PANEL (01655)Indication: Mixed hyperlipidemia On: :24 Request URINALYSIS W/O MICRO ([id number])Indication: Hypertensive heart disease without heart failure On: :12 Request TSH ([id number])Indication: Hypertensive heart disease without heart failure On: 36-Yjo-856331:12 Request CBC WITH MANUAL DIFF ([id number])Indication: Hypertensive heart disease without heart failure On: 07-Rlx-820268:12 Request METABOLIC PANEL, COMPREHENSIVE (55865)Indication: Hypertensive heart disease without heart failure On: :12 Request LIPID PANEL (38563)Indication: Mixed hyperlipidemia On: 96-Stf-358414:12 Request CBC with manual diff ([id number])Indication: Pre-operative examination On: :30 Request Metabolic Panel, Comprehensive (87647)Indication: Pre-operative examination On: 74-Wro-782526:30 Request Urinalysis, Office (02100)Indication: Pre-operative examination On: 20-Bsp-630480:29 Request Lipid Panel (63634)Indication: Mixed hyperlipidemia On: :52 Request Comments: in three months (approximately) TSH (61143)Indication: Hypertensive heart disease without heart failure On: :52 Request MICROALBUMIN URINE QUANT ([id number])Indication: Hypertensive heart disease without heart failure On: :52 Request METABOLIC PANEL, COMPREHENSIVE (99636)Indication: Hypertensive heart disease without heart failure On: :52 Request CBC WITH MANUAL DIFF ([id number])Indication: Hypertensive heart disease without heart failure On: :52 Request HEPATIC FUNCTION PANEL (14639)Indication: Mixed hyperlipidemia On: :52 Request LIPID PANEL (57234)Indication: Mixed hyperlipidemia On: :52 Request HEPATIC FUNCTION PANEL (49504)Indication: Mixed hyperlipidemia On: :54 Request LIPID PANEL (32513)Indication: Mixed hyperlipidemia On: :54 Request TSH (84814)Indication: pruritis On: :37 Request METABOLIC PANEL, COMPREHENSIVE (22245)Indication: pruritis On: :37 Request CBC WITH MANUAL DIFF ([id number])Indication: pruritis On: :37 Request LIPID PANEL (29057)Indication: Mixed hyperlipidemia On: :18 Request HEPATIC FUNCTION PANEL (17374)Indication: Mixed hyperlipidemia On: :18 Request HEPATIC FUNCTION PANEL (59521)Indication: Mixed hyperlipidemia On: :14 Request LIPID PANEL ([id number])Indication: Mixed hyperlipidemia On: 6-Crn-239594:14 Request Comments: 2mos Planned Encounters Medical; 3 Month FU - On: 24-Aug-2018 7:00 [facility] Margarita Drake DO, DO, Kathleen Planned Procedures ELECTROCARDIOGRAM, COMPLETE (ECG) On: 23-May-2018 Intent (20827)By: Margarita Drake DO Comments: sinus favio no acute chg Margarita GALARZA B 12 Injection, 1000 mcg (J3420)By: On: 23-May-2018 Intent Margarita Drake DO, DO, Comments: b12 1,000mcg/ml 1ml given L deltoid lot#[id number] exp: dino Margarita B 12 Injection, 1000 mcg (J3420)By: On: 26-Mar-2018 Intent Marlyn Roberts LPN Comments: [id number] dltdIMas PARTNER B 12 Injection, 1000 mcg (J3420)By: On: 19-Feb-2018 Intent Margarita Drake DO, DO, Comments: vitamin b12 1000mcg injectionlot: [id number]: 06/2019L DELT IMpt tolerated well Margarita B 12 Injection, 1000 mcg (J3420)By: On: 07-Dec-2017 Intent Noelle GALARZA Margarita Drake , Comments: 1 ml given lt arm lot [id number] exp 01/20 Margarita B 12 Injection, 1000 mcg (J3420)By: On: 10-Nov-2017 Intent Margarita Drake DO, DO, Margarita CHEST XRAY, PA & LATERAL ([id number])By: On: 26-Sep-2017 Intent Allyn Manley Aerosol Treatment (08717)By: Khanh On: 13-Sep-2017 Intent Ann Marie MCDANIEL Aerosol Treatment (21056)By: Vineet, On: 07-Sep-2017 Intent Allyn Comments: Lungs clear after aerosol treatment. B 12 Injection, 1000 mcg (J3420)By: On: 15-Aug-2017 Intent Margarita Drake DO Noelle DO, Comments: vitamin b12 1000mcg injectionlot: [id number]: 10/2018L DELT IMpt tolerated wellAD PARTNER Margarita INFUSION, NORMAL SALINE SOLUTION , On: 10-Aug-2017 Intent 1000 CC (Special Coverage Instructions Apply. See MCM: 2048) (J7030)By: Libby Mai DO Toradol Injection, 30 mg (J1885)By: On: 09-Aug-2017 Intent Libby Mai DO Comments: toradol 30mg IV push -per dr. mailot: [id number]: 11/2017IV push in 23g in R ACpt tolerated well. AD PARTNER INFUSION, NORMAL SALINE SOLUTION , On: 09-Aug-2017 Intent 1000 CC (Special Coverage Comments: 23g inserted to R AC per first attemptpt tolerated [id number] NS infusing Instructions Apply. See MCM: 2048) (J7030)By: Stefanie Ghosh XR RIB AND CHEST LEFT (10519)By: Sergei On: 09-Aug-2017 Libby Zavala DO Comments: stat call wet read fall with left anterior inferior rib pain/sob B 12 Injection, 1000 mcg (J3420)By: On: 03-Aug-2017 Intent Visit, Nurse Comments: given - see flowsheet Dose-prefilled syringeRIGHT DLTD, IMgiven by:CIARA JarrellNVIS signed B 12 Injection, 1000 mcg (J3420)By: On: 01-Aug-2017 Intent Margarita Drake DO, DO, Comments: vitamin b12 1000mcg injectionlot: [id number]: 10/2018L DELT IMpt tolerated wellAD PARTNER Margarita B 12 Injection, 1000 mcg (J3420)By: On: 26-Jul-2017 Intent Margarita Drake DO, DO, Comments: vitamin b12 1000mcg injectionlot: [id number]: 10/2018L DELT IMpt tolerated wellAD PARTNER Margarita INTENSIVE BEHAVIORAL THERAPY TO On: 25-Jul-2017 Intent REDUCE CARDIOVASCULAR DISEASE RISK, INDIVIDUAL, ISQZ-SI-ILMH, ANNUAL, 15 MINUTES (G0446)By: Margarita Drake DO, DO, Kathleen SCREENING DIGITAL TOMOSYNTHESIS OF On: 25-Jul-2017 Intent BREAST ([id number])By: Margarita Drake DO, DO Margarita B 12 Injection, 1000 mcg (J3420)By: On: 25-Jul-2017 Intent Margarita Drake DO, DO, Comments: vitamin b12 1000mcg injectionlot: [id number]: 10/2018L DELT IMpt tolerated wellAD PARTNER Margarita Rocephon Injection, 1 Gm (J0696)By: On: 13-Mar-2017 Intent Libby Mai DO Radiology - Finger(s) - RightBy: Sergei On: 13-Mar-2017 Libby Zavala DO Comments: second finger rule out osteo Aerosol Treatment (34766)By: Noelle On: 23-Sep-2016 Margarita Zavala DO, DO, Kathleen Comments: albulterol .83%more a/e but more noise- inspir and expir wheeze and junky Bone Density StudyBy: Davian Mccray MD On: 12-Nov-2015 Intent MAMMOGRAM, SCREENING, BOTH BREAST On: 12-Nov-2015 Intent ([id number])By: Davian Mccray MD CT - Chest (Without Contrast)By: Shazia On: 05-Nov-2015 Intent Davian ARAGON Comments: low dose DEXA SCAN AXIAL SKELETON (72755)By: On: 29-Oct-2015 Intent Shazia ARAGON, Davian Ultrasound - ThyroidBy: Shazia ARAGON, On: 29-Oct-2015 Intent Davian BILATERAL MAMMOGRAMS (61561)By: Shazia On: 29-Oct-2015 Intent Davian ARAGON B [...] MAMMOGRAM, SCREENING, BOTH BREAST On: 07-Nov-2014 Intent (73798)By: Libby Mai DO A B 12 Injection, 1000 mcg (J3420)By: On: 07-Nov-2014 Intent Sergei GALARZA Libby A Comments: lot: [id number]: 06/19Dose: 1,000 mcgSite: l dltdLocation; IMby: B 12 Injection, 1000 mcg (J3420)By: On: 08-Oct-2014 Intent Sergei DO Libby A Comments: Lot:[id number]:05/20Dose:1mlRoute:IMSite:l armGiven By:RAMÓN signed BILATERAL MAMMOGRAMS (84570)By: Sergei On: 08-Aug-2014 Intent Helga GALARZAa A INJECTION, VITAMIN B-12 On: 23-Jun-2014 Intent CYANOCOBALAMIN, UP TO 1000 MCG Comments: lot [id number] 03/19location L armroute imgiven by - msmithVIS [...] On: 21-Mar-2014 Intent HERMANN (Ankle Brachial Index) ([id number])By: On: 10-Feb-2014 Intent Fast DO, Libby A B 12 Injection, 1000 mcg (J3420)By: On: 11-Dec-2013 Intent Fast DO, Libby A Comments: Edgar dltd, [id number] flowsheetMegan CT - ChestBy: Fast DO, Libby A On: 11-Dec-2013 Intent Eprescribed prescriptions (G8553)By: On: 11-Dec-2013 Intent Fast DO, Libby A B 12 Injection, 1000 mcg (J3420)By: On: 30-Oct-2013 Intent Fast DO, Libby A Comments: lot: [id number]: 07/19site/route: L del/IMamt: 1mLVIS signed when applicableChelsea, KENNEL SUPERVISOR Eprescribed prescriptions (G8553)By: On: 09-Sep-2013 Intent Rachel Leyva ELECTROCARDIOGRAM, COMPLETE (ECG) On: 27-Aug-2013 Intent (62837)By: Ann Marie Cassidy CNP SPECIMEN HNDLNG/TRNSPRT, OFFC > LAB On: 18-Jun-2013 Intent (14660)By: Ann Marie Cassidy CNP MAMMOGRAM, SCREENING, BOTH BREASTS On: 04-Jun-2013 Intent (98740)By: Fast DO Libby A DXA, BONE DENSITY, AXIAL SKELETON On: 04-Jun-2013 Intent (17175)By: Fast DO Libby A CT - ChestBy: Fast DO, Libby A On: 04-Jun-2013 Intent B 12 Injection, 1000 mcg (J3420)By: On: 20-May-2013 Intent Yolette Allison LPN Comments: Lot: [id number]: Apr 17Amt: 1mlRoute: IMSite: L deltoidGiven by: ANGEL Merlos B 12 Injection, 1000 mcg (J3420)By: On: 12-Mar-2013 Intent Fast DO Libby A Comments: Lot #:[id number] date: mount given: 1mlRoute: IMSite given: left deltoidGiven by: KDAY Rehman MAMMOGRAM, SCREENING, BOTH BREASTS On: 01-Feb-2013 Intent ([id number])By: Sergei GALARZA Libby A Comments: end april CT - ChestBy: Fast DO Libby A On: 01-Feb-2013 Intent Comments: march or april B 12 Injection, 1000 mcg (J3420)By: On: 01-Feb-2013 Intent Sergei DO Libby A Eprescribed prescriptions ([id number])By: On: 01-Feb-2013 Intent Rachel Leyva B 12 Injection, 1000 mcg (J3420)By: On: 30-Oct-2012 Intent Rachel Leyva Comments: Lot:Exp:08/17Lot:[id number]:1mlRoute:imSite:L deltoidGiven by:BMY DXA, BONE DENSITY, AXIAL SKELETON On: 30-Oct-2012 Intent (92242)By: Helga Mai DOa A Eprescribed prescriptions (G8553)By: On: 30-Oct-2012 Intent Rachel Leyva Nuclear Medicine - ThyroidBy: Noelle On: 24-Sep-2012 Intent , Margarita Noelle DO, Margarita Esophagram with 13 mmm tabletBy: On: 06-Sep-2012 Intent Noelle DO, Margarita Noelle DO, Margarita Eprescribed prescriptions ([id number])By: On: 06-Sep-2012 Intent Allyn Prajapati LPN B 12 Injection, 1000 mcg (J3420)By: On: 30-Jul-2012 Intent Helga Mai DOa A Comments: Lot #:[id number] date: mount given: 1mlRoute: IMSite given: left deltoidGiven by: KADY Rehman CT - ChestBy: Helga Mai DOa A On: 30-Jul-2012 Intent Ultrasound - ThyroidBy: Fast DO, On: 30-Jul-2012 Intent Libby A Eprescribed prescriptions (G8553)By: On: 30-Jul-2012 Intent Rachel Leyva Eprescribed prescriptions (G8553)By: On: 05-Jul-2012 Intent Allyn Prajapati LPN MAMMOGRAM, SCREENING, BOTH BREASTS On: 23-Apr-2012 Intent (54949)By: Libby Mai DO CT - Chest (IV Contrast Needed)By: On: 21-Nov-2011 Intent Libby Mai DO Comments: thi is a follow up CT for abnormal ct chest in april 2011 TDAP VACCINE >7 IM (73415)By: On: 25-Jul-2011 Intent Rachel Leyva Comments: Lot:[id number]:07/21/13Amt:prefilledRoute:IMSite:left deltGiven By: ANGEL Anthony CT - Abdomen & PelvisBy: Sergei GALARZA, On: 25-Jul-2011 Intent Libby Ballard Comments: stat call wet read FLU VAC, SPLIT, >3 YEARS, INTRAMUSC On: 25-Jul-2011 Intent (33377)By: Rachel Leyva Comments: pt refuses CT - ChestBy: Libby Mai DO On: 20-Apr-2011 Intent Comments: pe protocol Ultrasound - ThyroidBy: Sergei GALARZA, On: 04-Apr-2011 Intent Libby Ballard Comments: to be done in 6 months Spirometry (31677)By: Libby Mai DO On: 16-Mar-2011 Intent A Comments: good effort and curve normal Pulse Oximetry (77807)By: Sergei GALARZA, On: 16-Mar-2011 Intent Libby Ballard Comments: 97% EKG (07950)By: Libby Mai DO On: 16-Mar-2011 Intent Comments: [...] MAMMOGRAM, SCREENING, BOTH BREASTS On: 17-Jan-2011 Intent (61101)By: Libby Mai DO Pulse Oximetry (03090)By: Khanh MCDANIEL, On: 14-Jun-2010 Intent Reema Aerosol Treatment (76964)By: Khanh On: 14-Jun-2010 Intent Ann Marie MCDANIEL DXA, BONE DENSITY, AXIAL SKELETON On: 23-Dec-2009 Intent (13158)By: Libby Mai DO MAMMOGRAM, SCREENING, BOTH BREASTS On: 23-Dec-2009 Intent (86849)By: Libby Mai DO A EKG (97774)By: Rachel Leyva On: 23-Dec-2009 Intent Comments: ekg- 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 no change normal axis MAMMOGRAM, SCREENING, BOTH BREASTS On: 25-Nov-2008 Intent (80611)By: Libby Mai DO EKG (38235)By: Libby Mai DO On: 25-Nov-2008 Intent Comments: ekg showed normal sinus with no lateral t wave inversioon and poor rwave progression- twave inversion anteriolry unchanged Spirometry (85889)By: Libby Mai DO On: 25-Nov-2008 Intent A Radiology - Chest- PA and LatBy: Sergei On: 25-Nov-2008 Intent Libby GALARZA Pulse Oximetry (43169)By: Sergei GALARZA, On: 25-Nov-2008 Intent Libby Ballard Bio Z (80442)By: Libby Mai DO On: 14-May-2008 Intent Comments: [...] On: 09-Oct-2006 Intent Libby GALARZA Bio Z (65727)By: Libby Mai DO On: 09-Oct-2006 Intent Comments: high svr and low normal cardiac output- so will add in [facility] Planned Medications INFUSION, NORMAL SALINE SOLUTION [...] without anemia Hypomagnesemia : DISCONTINUED - MAGNESIUM (59609) Indication: Hypomagnesemia Macrocytosis without anemia : DISCONTINUED - METABOLIC PANEL, BASIC (33868) Indication: Macrocytosis without anemia Nonsmoker : How [...] Mixed hyperlipidemia : DISCONTINUED - LIPID PANEL (68077) Indication: Mixed hyperlipidemia Mixed hyperlipidemia : DISCONTINUED - METABOLIC PANEL, COMPREHENSIVE (24019) Indication: Mixed hyperlipidemia Mixed hyperlipidemia : DISCONTINUED - LIPID PANEL (48283) Indication: Mixed hyperlipidemia Diabetes mellitus type 2, uncontrolled, without complications : DISCONTINUED - METABOLIC PANEL, COMPREHENSIVE (01125) Indication: Diabetes mellitus type 2, uncontrolled, without [...] Advance Directives Name Dates Details Immunization Registry [place] - Effective on Effective: 25-Jul-201707/25/2017. Expiration date [...] failure, Vitamin D deficiency (268.9), CAD in [place] [facility] Office Visit On: [...] severe, Vitamin D deficiency (268.9), CAD in [place] [facility] Office Visit On: [...] bronc hitis, post viral cough-given z-pack and iyfqyvpwvs-Rgidn-hzwof not feeling good- fatigue, fever, chills, high [...] The patient does have durable power of claims attorney and living will. The patient has noticed nothing from the geriatic depression scale. Other providers contributing to the patient's care are staging technician, gastrologist and bending press operator. Encounter Diagnosis: BMI 26.0-26.9,adult, Hypomagnesemia, Nonsmoker, Pulmonary [...] issues sent to Transitional care unit at [place]. Saw Dr. Greene in trasitional care, had [...] for xofran.Told it was colitis. Admitted to [facility] and had monitoring then cath found 25% [place] cardio myopthy, placed on carvediolol 6.25mg Recently went to [facility] seen after Nonstemi, and low EF [...] is transitioning into care from a hospital ([facility] 10/23 to 10/27 pneumonia) and a [...] - Reason for hospitalization note: (was in [facility] er sun for bronchitis I used [...] The patient does have durable power of claims attorney and living will. The patient has noticed lack of energy. Other providers contributing to the patient's care are digital traffic coordinator and other: (eye exam - 1 year [...] the fatigue is because traveling alot for [employer] and up late and trial coming upEncounter [...] shot- and she [facility]nt been [facility]- us reviewed and told her to make [...] evaluation: Surgery is with Dr. Yepez in [place]- [phone] and fax- [phone]- had stimulator removed- then had mri of [...] (and trying to use hands or air director anything). There is no radiation. Associated symptoms [...] bp high and said becuase son in senior living, [ADDITIONAL REASON] Follow up, Laboratory Test Results [...] poorly. Patient has been compliant with instructions. [facility] End: 09-Aug-2006 12:15 nt medication use: [...] better- couldnt get insurance to pay for [employer]- [employer] works for her- thinks she needs to [...]
--- OUTSIDE RECORDS SUMMARY | 2018-10-01 09:25 | XMS RPT_ITS | Continuity of Care Document ---
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) Status: Active Canker sore [...] 250.00) Comments: No vision problem, saw opthalmology Shnea 11/2014, no retinal changes,left catarct surgery.eats toaster streudel for braekfast and fish sandwich at [facility] Status: Active Dysphagia, unspecified dysphagia (787.20) Comments: awaiting bx Status: Active Dysthymic disorder (F34.1, 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) Status: Active Elevated platelet count (R79.89, 790.6) Status: Active Encounter for annual general medical examination with abnormal findings in adult (Z00.01, V70.0) Status: Active Encounter for screening for malignant neoplasm of colon (Renamed from Special screening for malignant neoplasms, colon) (Z12.11, V76.51) Comments: last scope 03/20 [facility] Status: Active Encounter for screening mammogram for [...] d ay (can buy a pedometer at [employer]), -5 days of week of 30 mins [...] days Quantity: 60 {Tablet} Refills: 3 Ordered:31-Jan-2017 PennyAnn Marie arrington CNP Start : 31-Jan-2017 Active Cymbalta 30 [...] DO, DO, Kathleen Start : 04-Jun-2018 Active Comments:[facility] M48.02 cervical .9 zigyprohjvyhqU66.8 facial nerve uhemlgdbN47.1 lumbar laminectomycalled to bmt 08/30/17 venessa cowart Glucophage XR 500 MG Oral Tablet Extended [...] 10-Apr-2018 Active VITAMIN C & E COMBINATION, [id number] (Oral Capsule) 1 (one) Capsule Capsule qd [...] days Quantity: 60 {Tablet} Refills: 0 Ordered:10-Nov-2017 Yanni Drake DO, DO, Kathleen Start : 10-Nov-2017 End : 09-Apr-2018 Inactive Comments:Sixty script given to olfjflgJ58.0 AUGMENTIN, 875-125MG (Oral Tablet) 1 Tablet bid [...] days Quantity: 10 {Tablet} Refills: 0 Ordered:10-Nov-2017 Allyn Prajapati LPN Start : 26-Sep-2017 End : 10-Nov-2017 Inactive [...] Start : 29-Oct-2015 End : 26-May-2016 Inactive Comments:[place] Neurontin 600 MG Oral Tablet 1 (one) Tablet three times daily for 30 days Quantity: 90 {Tablet} Refills: 0 Ordered:20-Oct-2016 Khanh MCDANIEL Reema Start : 20-Oct-2016 End : 19-Nov-2016 Inactive [...] : 28-Jan-2016 End : 07-Feb-2016 Inactive NYSTATIN, 833025JKXH/GM (External Cream) apply Cream bid to affected [...] days Quantity: 30 {Tablet} Refills: 0 Ordered:14-Nov-2016 Khanh MCDANIEL Ann Marie Benitez Start : 14-Nov-2016 End : 14-Dec-2016 Inactive [...] days Quantity: 30 {Packet} Refills: 0 Ordered:26-May-2016 Clark ORTIZKenneyryan Raya Start : 13-May-2016 End : 26-May-2016 Inactive TRILIPIX, 135MG (Oral Capsule Delayed Release) 1 (one) Capsule DR qd for 0 days Quantity: 90 {Capsule_DR} Refills: 3 Ordered:23-Dec-2009 Rachel Leyva Start : 14-Sep-2009 Inactive ULTRAM, 50MG (Oral Tablet) 1 tab bid, prn for 0 days Refills: 0 Ordered:23-Dec-2009 Rachel LeyvaInactive VALTREX, 1GM (Oral Tablet) 2 (two) Tablet bid for 1 days Quantity: 4 {Tablet} Refills: 1 Ordered:27-Aug-2013 Nela Andrea LPN Start : 05-Jul-2012 End : 27-Aug-2013 Inactive VICODIN, 5-500MG (Oral Tablet) 1-2 Tablet q 6 hours prn for 0 days Quantity: 60 {Tablet} Refills: 0 Ordered:23-Dec-2009 Rachel Leyva Start : 25-Oct-2007 Inactive VITAMIN D (ERGOCALCIFEROL), 55404DPHK (Oral Capsule) 1 Capsule q weekly for [...] days Quantity: 60 {Capsule} Refills: 5 Ordered:14-May-2008 Libby Mai DO Start : 14-May-2008 End : 14-May-2008 Discontinued AMBIEN CR, 12.5MG (Oral Tablet Extended Release) 1 tab q hs (12.5 MG) End : 11-Dec-2013 Discontinued Comments:Pt gets this from Dr. Betts AMBIEN CR, 12.5MG (Oral Tablet Extended Release) 1 tab Tablet ER qhs,prn for 0 days Quantity: 30 {Tablet_ER} Refills: 3 Ordered:23-Dec-2009 Libby Mai DO Start : 23-Dec-2009 End : 23-Dec-2009 Discontinued [...] days Quantity: 10 {Vial} Refills: 3 Ordered:02-Sep-2016 Jaguarrb Robby ORTIZa Start : 21-Mar-2014 End : 02-Sep-2016 Discontinued [...] days Quantity: 4 {Tablet} Refills: 0 Ordered:07-Oct-2016 Alejandra ORTIZ Marlyn Start : 23-Sep-2016 End : 07-Oct-2016 [...] days Quantity: 30 {Tablet_ER} Refills: 3 Ordered:14-May-2008 Libby Mai DO Start : 14-May-2008 End : 14-May-2008 Discontinued [...] days Quantity: 30 {Tablet_ER_24HR} Refills: 5 Ordered:29-Jul-2008 Libby Mai DO Start : 29-Jul-2008 End : 29-Jul-2008 Discontinued [...] tongue syndrome Comments: get back to Dr. mathewfamivir help Status: Inactive as of 27-Aug-2013 CAP [...] physical examination (Z01.818, V72.83) Comments: ekg at [facility] with records from recent hospitalization Status: Inactive [...] hypotension (A41.9, 038.9) Status: Resolved as of 2-Mar-2017 shingles Status: Resolved as of 02-Mar-2009 Sinus [...] (R06.02, 786.05) Comments: See referral letter from [facility] REspiratory scanned document Dr Munguia saw tim- and he said her function is good- [...] and Obrych, surgical decompression /fusion c3-c6- [facility] Completed Date Value Details 07-May-2018 Discharge Instruction Result: Comments: See Note; NOTES: [facility] Medical Records Department [address] [place] [address] Discharge Instruction 05/07/18 0931 MR#: [id number] Acct: [id number] Name: Radha MAHARAJ Rep #: [id number] : 1945 72 From: Parminder Blanco MD [...] Emergency Room. Call 911 if necessary. 05/07/18 1543 <Electronically signed by Parminder Blanco MD> Date J brent Blanco MD Cosigner Signature (If Indicated): Date CC: Margarita Drake DO 07-May-2018 Emergency Department Summary Result: Comments: See Note; NOTES: [facility] Medical Records Department [address] [place] [address] Emergency Department Summary 05/07/18 0838 MR#: [id number] Acct: [id number] Name: MAR MAHARAJ Rep #: [id number] : 1945 72 From: Parminder Blanco MD PCP: Margarita Drake DO Status: DEP ER - ER Visit Summary Date of Service: 05/07/18 Chief Complaint: Nausea, vomiting and diarrhea History of Present Illness: The patient is a 72 F has a past medical history of valvular heart disease, hypertension, cholesterol spinal stenosis and multiple surgeries. Patient states she zoran t to [employer] on Monday. And she developed nausea vomiting [...] Dehydration This note was ge nerated with [employer] dictation software. It may contain incorrect words, [...] your Primary Care Provider. Call [facility] ([phone]) or report to the closest Emergency Room. Call 911 if necessary. 05/07/18 1545 <Elec tronically signed by Parminder Blanco MD> Date Parminder Blanco MD Cosigner Signature (If Indicated): Date CC: Margarita Drake DO 22-Feb-2018 Downtime Report Result: Comments: See Note; NOTES: [facility] Medical Records Department [address] [place] [address] Downtime Report MR#: [id number] Acct: [id number] Name: MAR MAHARAJ Rep #: [id number] : 1945 72 From: Gilson Washington PCP: Margarita Drake DO Status: REG CLI This patient was seen during an EMR downtime February 05, 2018 - February 12, 2018. This patient may have a combination o f paper and electronic documentation or all paper documentation. All documentation is viewable within the e-chart portion of [facility] for each patient visit. 08-Feb-2018 Spine Lumbar (Routine) Result: Comments: See Note; NOTES: [facility] Imaging Services [address] [place] [address] Spine Lumbar (Routine) MR#: [id number] Acct: [id number] Name: MAR MAHARAJ Rep #: [id number] : 1945 F 72 From: Dylan Donato MD PCP: Margarita Drake DO Status: REG CLI Study: Spine Lumbar (Routine) Date of Exam: 02/08/18 Exam# [id number] Ordering Dr: Jose Alejandro Yepez STUDY: MRI [...] , CC: NICO YEPEZ; Margarita Drake DO Pulmonary Fellow: Signed 08-Feb-2018 Spine Lumbar without Contrast Result: Comments: See Note; NOTES: [facility] Imaging Services [address] [place] [address] Spine Lumbar without Contrast MR#: [id number] Acct: [id number] Name: CAROL ANNMAR S Rep # : [id number] : 1945 F 72 From: Robles Mejia PCP: Margarita Drake DO Status: REG CLI Study: Spine Lumbar without Contrast Date of Exam: 02/08/18 Exam# [id number] Ordering Dr: Jose Alejandro Yepez STUDY: C [...] paraspinous soft tissue structures. ORDE R #: [id number] CT/Spine Lumbar without Contrast IMPRESSION: Multilevel degenerative change discussed above. Hardware as described. Right L3 pedicle screw appears broken. Grade 1 anterolisthesis of L4 on L5. Laminectomies. Demineralization. Electronically Signed: Robles Mejia DO at 10:57 EDT , Service support , CC: JOSE ALEJANDRO YEPEZ; Margarita Drake DO Pulmonary Fellow: Signed 09-Jan-2018 Pulmonary Visit Report Result: Comments: See Note; NOTES: [facility] [address] 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 Patient currently uses no inhalers. Patient denies any smoking history. Patient denies any noxious exposures. Patient does follow up with Dr. Lawler on a regular basis for mult iple heart issues. 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) Nonrheumatic aortic (valve) insufficiency (Chronic) Nonrheumatic tricuspid (valve) insufficiency (Chronic) Other seco ndary pulmonary hypertension (Chronic) Nonischemic cardiomyopathy (Chronic) Fatigue (Chronic) Hx pulmonary embolism (Resolved) Takotsubo cardiomyopathy (Chronic) GI (gastrointestinal bleed) (Chronic) CA D (coronary artery disease) (Chronic) Lumbar spinal stenosis (Chronic) Chiari malformation (Chronic) GERD (gastroesophageal reflux disease) (Chronic) Depression (Chronic) Anxiety (Chronic) Diabetes unzhat itus type 2, diet-controlled (Chronic) Hypertension (Chronic) [...] Date (if applicable) CC: Ann Marie Cassidy NP; Margarita Drake DO 03-Dec-2017 Emergency Department Summary Result: Comments: See Note; NOTES: [facility] Medical Records Department [address] [place] [address] Emergency Department Summary 12/03/17 1656 MR#: [id number] Acct: [id number] Name: MAR MAHARAJ Rep #: [id number] : 1945 72 From: Arya Torrez MD [...] blunt trauma This note was generated with [employer] dictation software. It may contain incorrect words, spelling, and punctuation that were not noted in review of the chart prior to signing ED Disposition - Plan for ED Patient: Disposition: Home or Assisted Living Chief Complaint: Chest Other Instructions: ED Contusion Vs Minor Fx Rib Prescriptions: Hydrocodone Bitart/Apap 5-325 [[place] 5MG-325MG] 1 tab PO Q6H PRN PRN 3 Days #10 tab PRN Reason: Alena n Referrals: Margarita Drake DO [Primary Care Provider] - 1 Week if not improving What to do if you have Problems For any increased pain, shortness of breath, bleeding, nausea or vomiting, chest pa in, or any unexpected problems, contact your Primary Care Provider. Call [facility] ([phone]) or report to the closest Emergency Room. Call 911 if necessary. 12/03/17 1706 <Electron ically signed by Arya Torrez MD> Date Arya Torrez MD Cosigner Signature (If Indicated): Date CC: Margarita Drake DO 03-Dec-2017 Chest PA and Lateral Result: Comments: See Note; NOTES: [facility] Imaging Services [address] [place] [address] Chest PA and Lateral MR#: [id number] Acct: [id number] Name: MAR MAHARAJ Rep #: [id number] : 1945 F 72 From: Lotus Anthony MD PCP: Margarita Drake DO Status: DEP ER Study: Chest PA and Lateral Date of Exam: 12/03/17 Exam# [id number] Ordering Dr: Arya Torrez MD STUDY: X-RAY [...] Service support , CC: Margarita Drake DO; rAya Torrez MD Pulmonary Fellow: Signed 18-Oct-2017 SCREENING MAMM (CAD), BILAT Result: Comments: See Note; NOTES: [facility] Imaging Services [address] [place] [address] SCREENING MAMM (CAD), BILAT MR#: [id number] Acct: [id number] Name: MAR MAHARAJ Rep #: [id number] : 1945 F 72 From: Florian Valenzuela MD PCP: Margarita Drake DO Status: REG CLI Study: SCREENING MAMM (CAD), BILAT Date of Exam: 10/18/17 Exam# [id number] Ordering Dr: Alysia Drake DO MAMMOGRAPHY - [...] 19, 2015 and November 17, 2014. FINDINGS: [place] [facility] Composition: There are scattered areas of [...] delay biopsy of a clinically suspicious abnormality. CK0203 Electronically Signed: Florian Howard i, MD at 13:51 EST Tel [phone], Service support , CC: Margarita Drake DO Pulmonary Fellow: Signed 13-Oct-2017 Cardiology Visit Report Result: Comments: See Note; NOTES: [facility] [address] [place] [address] OFFICE VISIT Date of Service: 10/13/17 MR#: [id number] Acct: [id number] Name: MAR MAHARAJ Rep #: [id number] : 1945 Provider: Sergio Lawler MD Age/Sex: 72/F Location: [facility] [facility] Status: Signed HPI HPI Chief Complaint: [...] reading without diagnosis of hypertension (Chronic) Other penitentiary (current) drug ther apy (Chronic) Nonrheumatic aortic (valve) insufficiency (Chronic) Nonrheumatic tricuspid (valve) insufficiency (Chronic) Other secondary pulmonary hypertension (Chronic) Nonischemic cardiomyopathy (Bankruptcy Paralegal deangelo) Fatigue (Chronic) Hx pulmonary embolism (Resolved) [...] AND Plan 1. Coronary artery disease involving venetie ira coronary artery of [place] heart without angina pectoris I25.10 Mild Plan [...] vis,est,level 3 Diagnoses Coronary artery disease involving ven[place]ie ira coronary artery of [place] heart without angina pectoris I25.10 Coronary Disease-Associated Artery/Lesion type: venetie ira artery [place] vs. transplanted heart: ven[place]ie ira heart Associated angina: without angina Essential hyperten tamika I10 Hypertension type: essential hypertension Coding Level of Care Code Off vis,est,level 3 Diagnoses Coronary artery disease involving ven[place]ie ira coronary artery of [place] heart without angina pect wilber I25.10 Coronary Disease-Associated Artery/Lesion type: ven[place]ie ir[place] artery [place] vs. transplanted heart: ven[place]ie ira heart Associated angina: without angina Essential hypertension I10 Hypertension type: esse ntial hypertension 10/13/17 1546 <Electronically signed by Sergio Lawler MD> Date Sergio Lawler MD Cosigner Signature: Date _ (if applicable) CC: Margarita Drake DO 26-Sep-2017 Chest PA and Lateral Result: Comments: See Note; NOTES: [facility] Imaging Services [address] [place] [address] Chest PA and Lateral MR#: [id number] Acct: [id number] Name: MAR MAHARAJ Rep #: [id number] : 1945 F 72 From: Quinn Pringle PCP: Margarita Drake DO Status: REG CLI Study: Chest PA and Lateral Date of Exam: 09/26/17 Exam# [id number] Ordering Dr: Allyn Manley HEALTH NAVIGATOR-C STUDY: X-RAY C HEST REASON FOR EXAM: [...] , CC: HUANG Manley; Margarita Drake DO Pulmonary Fellow: Signed 22-May-2017 History and Physical Exam Result: Comments: See Note; NOTES: [facility] Medical Records Department [address] [place] [address] History and Physical 05/22/17 1809 MR#: [id number] Acct: [id number] Name: RUDY MAHARAJ Rep #: [id number] : 1945 71 From: Edward Chao DO [...] knee (Chronic) Sinusitis, chronic (Chronic) Takotsubo cardiomyopathy (Bankruptcy Paralegal deangelo) chairi malformations/p posterior decompr (Chronic) Allergies [...] 7 back surgeries 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 The emergency room marti jimenez stated that the patient's significant other told [...] Department Summary Result: Comments: See Note; NOTES: [facility] Medical Records Department [address] [place] [address] Emergency Department Summary 05/22/17 1707 MR#: [id number] Acct: [id number] Name: MAR MAHARAJ Rep #: [id number] : 1945 71 From: Angelo William MD [...] your Primary Care Provider. Call Esperanza barnard ([phone]) or report to the closest Emergency Room. Call 911 if necessary. 05/22/17 1710 <Electronically signed by Angelo William MD> Date Angelo William MD Cosigner Signature (If Indicated): Date CC: Ann Marie Cassidy 22-May-2017 Brain/Head without Contrast Result: Comments: See Note; NOTES: [facility] Imaging Services [address] [place] [address] Brain/Head without Contrast MR#: [id number] Acct: [id number] Name: MAR MAHARAJ Rep #: [id number] : 1945 F 71 From: Dorothy Barber MD PCP: Ann Marie Cassidy Status: REG ER Study: Brain/Head without Contrast Date of Exam: 05/22/17 Exam# [id number] Ordering Dr: Angelo William MD STUDY : [...] CC: Ann Marie Cassidy; Angelo William MD Pulmonary Fellow: Signed 22-May-2017 Chest 1 View (Portable) Result: Comments: See Note; NOTES: [facility] Imaging Services [address] [place] [address] Chest 1 View (Portable) MR#: [id number] Acct: [id number] Name: MAR MAHARAJ Rep #: [id number] : 1945 F 71 From: Dorothy Barber MD PCP: Ann Marie Cassidy Status: REG ER Study: Chest 1 View (Portable) Date of Exam: 05/22/17 Exam# [id number] Ordering Dr: Angelo William MD STUDY: X-RAY [...] CC: Ann Marie Cassidy; Angelo William MD Pulmonary Fellow: Signed 17-May-2017 Emergency Department Summary Result: Comments: See Note; NOTES: [facility] Medical Records Department [address] [place] [address] Emergency Department Summary 05/17/17 1543 MR#: [id number] Acct: [id number] Name: MAR MAHARAJ Rep #: [id number] : 1945 71 From: Tab Peacock MD [...] your Primary Care Provider. Call [facility] ([phone]) or report to the closest Emergency Room. Call 911 if necessary. 05/17/17 1652 <Electronically signed b y Tab Peacock MD> Date Tab Peacock MD Cosigner Signature (If Indicated): Date CC: Ann Marie Cassidy 28-Apr-2017 Emergency Department Summary Result: Comments: See Note; NOTES: [facility] Medical Records Department [address] [place] [address] Emergency Department Summary 04/28/17 1059 MR#: [id number] Acct: [id number] Name: MAR MAHARAJ Rep #: [id number] : 1945 71 From: Tab Peacock MD [...] your Primary Care Provider. Call [facility] ([phone]) or report to the closest Emergency Room. Call 911 if necessary. 04/28/17 1306 <Electronically signed by Tab Peaocck MD> Date Tab Peacock MD Cosigner Signature (If Indicated): Date CC: Ann Marie Cassidy 28-Apr-2017 Chest 1 View (Portable) Result: Comments: See Note; NOTES: [facility] Imaging Services [address] [place] [address] Chest 1 View (Portable) MR#: [id number] Acct: [id number] Name: MAR MAHARAJ Rep #: [id number] : 1945 F 71 From: Sekou Bose DO PCP: Ann Marie Cassidy Status: REG ER Study: Chest 1 View (Portable) Date of Exam: 04/28/17 Exam# [id number] Ordering Dr: Tab Peacokc MD STUDY: X-RAY CHEST R RICH FOR [...] CC: Ann Marie Cassidy; Tab Peacock MD Pulmonary Fellow: Signed 12-Apr-2017 Echocardiogram Complete Result: Comments: See Note; NOTES: [facility] Cardiovascular Services [address] [place] [address] Echo Complete 04/12/17 1150 MR#: [id number] Acct: [id number] Name: MAR MAHARAJ Rep #: [id number] : 1945 71 From: Sergio Lawler MD Attending Dr: Nuris ARAGON,Sergio Status: REG CLI Ordering Dr: Sergio Lawler MD Date: 04/12/17 Location: [facility] Sex: F C Admitted: Reason [...] Physician: Ann Marie Cassidy Performed By: Audra Nagy, JULIETA Electro nically signed by: Sergio Lawler MD on 04/12/2017 04:49 PM 04/12/171648 Date Sergio Lawler MD CC: Ann Marie Cassidy; Sergio Lawler MD Date Dictated: 04/12/17 1 150 Date Transcribed: 04/12/171648 Pulmonary Fellow: Signed 13-Mar-2017 Finger(s) Min 2 Views Result: Comments: See Note; NOTES: [facility] Imaging Services [address] [place] [address] Verdana 4d Finger(s) Min 2 Views MR#: [id number] Acct: [id number] Name: MAR MAHARAJ Re p #: [id number] : 1945 F 71 From: Maldonado Pablo DO PCP: Ann Marie Cassidy Status: REG CLI Study: Finger(s) Min 2 Views Date of Exam: 03/13/17 Exam# [id number] Ordering Dr: Libby Mai DO STUDY: X-RA [...] of acute osseous abnormality. Electronically Signed: Maldonado Pablo DO at 22:01 EDT Tel [phone], Service support , CC: Ann Marie Demarco sa; Libby Mai DO Pulmonary Fellow: Signed 15-Feb-2017 Cerv Spine 4 or 5 Views Result: Comments: See Note; NOTES: [facility] Imaging Services [address] [place] [address] Verdana 4d Cerv Spine 4 or 5 Views MR#: [id number] Acct: [id number] Name: MAR MAHARAJ Rep #: [id number] : 1945 F 71 From: Vitaly Turner MD PCP: Ann Marie Cassidy Status: REG CLI Study: Cerv Spine 4 or 5 Views Date of Exam: 02/15/17 Exam# [id number] Ordering Dr: Jose Alejandro Yepez STUDY: X [...] Service support , CC: Ann Marie Cassidy; JOSE ALEJANDRO YEPEZ Pulmonary Fellow: Signed 14-Feb-2017 Spine Lumbar (Routine) Result: Comments: See Note; NOTES: [facility] Imaging Services [address] [place] [address] Verdana 4d Spine Lumbar (Routine) MR#: [id number] Acct: [id number] Name: MAR MAHARAJ Naveed ep #: [id number] : 1945 F 71 From: Dylan Donato MD PCP: Ann Marie Cassidy Status: REG CLI Study: Spine Lumbar (Routine) Date of Exam: 02/14/17 Exam# [id number] Ordering Dr: Abdiel Betts MD LORENA DY: [...] CC: Ann Marie Cassidy; Abdiel Betts MD Pulmonary Fellow: Signed 22-Jan-2017 Abdomen/Pelvis without Cont Result: Comments: See Note; NOTES: [facility] Imaging Services [address] [place] [address] Verdana 4d Abdomen/Pelvis without Cont MR#: [id number] Acct: [id number] Name: JOHN MAHARAJ Rep #: [id number] : 1945 F 71 From: Jeb Piedra MD PCP: Ann Marie Cassidy Status: REG ER Study: Abdomen/Pelvis without Cont Date of Exam: 01/22/17 Exam# [id number] Ordering Dr: Stacy Corey MD STUDY: CT [...] CC: Ann Marie Cassidy; Noelle Corey MD Pulmonary Fellow: Signed 25-Dec-2016 Venous Duplex Lower Extremity Result: Comments: See Note; NOTES: [facility] Cardiovascular Services [address] [place] [address] Venous Duplex US, Unilateral 12/23/16 1042 MR#: [id number] Acct: [id number] Name: MAR DEAN Rep #: [id number] : 1945 71 From: David Hawthorne MD Attending Dr: Glenn Ro Status: REG CLI Ordering Dr: Glenn Ro Date: 12/23/16 Location: [facility] Sex: F C Admitted: R rich For Study: Pain LLE RIGHT LEFT CFV [...] Date David Hawthorne MD CC: Ann Marie Ro Date Dictated: 12/23/16 1042 Date Transcribed: 12/25/161936 Pulmonary Fellow: Signed 19-Dec-2016 Chest 1 View (Portable) Result: Comments: See Note; NOTES: [facility] Imaging Services [address] [place] [address] Verdana 4d Chest 1 View (Portable) MR#: [id number] Acct: [id number] Name: MAR MAHARAJ Rep #: [id number] : 1945 F 71 From: Alfa Bettencourt MD PCP: Ann Marie Cassidy Status: REG ER Study: Chest 1 View (Portable) Date of Exam: 12/19/16 Exam# [id number] Ordering Dr: Edin Rodriguez MD STUDY: X- [...] CC: Ann Marie Cassidy; Edin Rodriguez MD Pulmonary Fellow: Signed 19-Dec-2016 Abdomen/Pelvis without Cont Result: Comments: See Note; NOTES: [facility] Imaging Services [address] [place] [address] Verdana 4d Abdomen/Pelvis without Cont MR#: [id number] Acct: [id number] Name: JOHN MAHARAJ Rep #: [id number] : 1945 F 71 From: Alfa Bettencourt MD PCP: Ann Marie Cassidy Status: REG ER Study: Abdomen/Pelvis without Cont Date of Exam: 12/19/16 Exam# [id number] Ordering Dr: Edin Rodriguez MD S DY: CT ABDOMEN AND PELVIS WITHOUT CONTRAST REASON [...] CC: Ann Marie Cassidy; Edin Rodriguez MD Pulmonary Fellow: Signed 15-Dec-2016 Emergency Department Summary Result: Comments: See Note; NOTES: [facility] Medical Records Department [address] [place] [address] Emergency Department Summary MR#: [id number] Acct: [id number] Name: JOHN MAHARAJ Rep #: [id number] : 1945 71 From: Sheila Amaya MD [...] pain SHEILA AMAYA MD T: NTS JOB: [id number] 12/15/16 1522 <Electronically signed by Sheila Amaya MD> Date Sheila Amaya MD Cosigner Signature (If Indicated): Date CC: Ann Marie Cassidy Date Dictated: 12/13/162342 Date Transcribed: 12/13/162342 Pulmonary Fellow: Signed 15-Dec-2016 12 Lead Electrocardiogram Result: Comments: See Note; NOTES: [facility] Cardiovascular Services [address] [place] [address] 12 Lead EKG 12/13/16 1603 MR#: [id number] Acct: [id number] Name: MAR MAHARAJ p #: [id number] : 1945 71 From: Vineet Merlos MD Attending Dr: Status: DEP ER [...] undetermined Abnormal ECG Confirmed by VINEET MERLOS ([id number]), online content editor CHRISTIAN WASHINGTON ([id number]) on 017 1:15:30 PM Referred By: JOSE LUIS Confirmed By:VINEET MERLOS 12/15/16 1315 Date Vineet Merlos MD CC: Ann Marie Cassidy Date Dictated: 12/13/161602 Date Transcribed: 12/13/161602 Pulmonary Fellow: Signed 14-Dec-2016 Venous Duplex Lower Extremity Result: Comments: See Note; NOTES: [facility] Cardiovascular Services [address] [place] [address] Venous Duplex US, Unilateral 12/13/16 1612 MR#: [id number] Acct: [id number] Name: MAR DEAN Rep #: [id number] : 1945 71 From: Rj Cleary MD [...] Wu Performed By: Deana Cherry RVT 12/14/16 06 Date Rj Cleary MD CC: Ann Marie Cassidy; Sheila Amaya MD Date Dictated: 12/13/16 1612 Date Transcribed: 12/14/16602 Pulmonary Fellow: Signed 13-Dec-2016 Discharge Instruction Result: Comments: See Note; NOTES: [facility] Medical Records Department [address] [facility] [place] [address] Discharge Instruction 12/13/161901 MR#: [id number] Acct: [id number] Name: Radha MAHARAJ Rep #: [id number] : 1945 71 From: Sheila Amaya MD [...] cont act your Primary Care Provider. Call [employer] [facility] ([phone]) or report to the closest Emergency Room. Call 911 if necessary. 12/13/162044 <Electronically signed by Sheila Amaya MD&amp ;#62; Date Sheila Amaya MD Cosign Signature (If Indicated): Date CC: Ann Marie Cassidy 13-Dec-2016 Chest 1 View (Portable) Result: Comments: See Note; NOTES: [facility] Imaging Services [address] [place] [address] Verdana 4d Chest 1 View (Portable) MR#: [id number] Acct: [id number] Name: MAR MAHARAJ Rep #: [id number] : 1945 F 71 From: Trent Arias MD PCP: Ann Marie Cassidy Status: REG ER Study: Chest 1 View (Portable) Date of Exam: 12/13/16 Exam# [id number] Ordering Dr: Sheila Amaya MD STUDY: X-RAY [...] MD at 17:07 EDT , Service support [phone], CC: Ann Marie Cassidy; Sheila Amaya MD Pulmonary Fellow: Signed 13-Dec-2016 Abdomen/Pelvis W IV Cont ONLY Result: Comments: See Note; NOTES: [facility] Imaging Services [address] [place] [address] Verdana 4d Abdomen/Pelvis W IV Cont ONLY MR#: [id number] Acct: [id number] Name: LILI MAHARAJ Rep #: [id number] : 1945 F 71 From: Trent Arias MD PCP: Ann Marie Cassidy Status: REG ER Study: Abdomen/Pelvis W IV Cont ONLY Date of Exam: 12/13/16 Exam# [id number] Ordering Dr: Sheila Amaya MD STUDY: CT [...] MD at 18:25 EDT , Service support [phone], CC: Ann Marie Cassidy; Sheila Amaya MD Pulmonary Fellow: Signed 15-Nov-2016 History and Physical Exam Result: Comments: See Note; NOTES: [facility] Medical Records Department [address] [place] [address] History and Physical 11/09/16 1003 MR#: [id number] Acct: [id number] Name: Radha MAHARAJ Rep #: [id number] : 1945 71 From: Glenn Ro PCP: Ann Marie Cassidy Status: PRE IN Location: [facility] DATE OF SERVICE: 11/22/2016 This is [...] while going through on her right kn chiropractic treatments and she takes Percocet as [...] reviewing all treatment options wi th Dr. Darein Avina, the patient does wish to proceed with a left total knee arthroplasty. PAST MEDICAL HISTORY: Significant for: 1. Fibromyalgia. 2. Hypertension. 3. Cancer. 4. Diabetes mellitus. 5. H istory of phlebitis. 6. Depression. 7. Anxiety. PAST SURGICAL HISTORY: 1. Right total hip arthroplasty in 2003, Dr. Darien Avina, [facility]. 2. Hysterectomy. 3. Appendectomy. 4. Cholec ystectomy. 5. Brain surgery x2 Arnold-Chiari malformation. 6. Carpal tunnel bilaterally. 7. Cervical surgery, December 2013 at [place]. 8. Right total knee arthroplasty on August 19, 2014, Dr. Darien Avina , [facility]. 9. Laminectomy 2000, instrumentation lumbar fusion. 10. Right total hip arthroplasty in 2013, revision assistive devices. The patient admits to full upper dentures. Denies glasses or hearing aids. SOCIAL HISTORY: The patient is retired, works part-time. Denies tobacco use, denies alcohol use, denies illicit drug use. REVIEW OF SYSTEMS: Documented in the [facility] medical hi story sheet, please refer to [...] of left knee dated October 17, 2016, [facility], weightbearing, AP, tunnel, sunrise, lateral views with [...] the hospital. YADIRA Narvaez T: RUFUS JOB: [id number] 11/15/16 0839 <Electronically signed by Glenn Ro > Date: Time: Glenn Ro CC: Ann Marie Cassidy; Glenn Ro Date Dictated: 11/09/16 1003 Date Transcribed: 7 1003 Pulmonary Fellow: Signed ____ I have re-examined the patient. There are no clinical changes since date of exam. ____ See Progress Notes for Changes ____ Dictated on Admission Date: ___ Time: Signature: -Oct-2016 History and Physical Exam Result: Comments: See Note; NOTES: [facility] Medical Records Department [address] [place] [address] History and Physical 10/19/16 1537 MR#: [id number] Acct: [id number] Name: Radha MAHARAJ Rep #: [id number] : 1945 71 From: Glenn Ro PCP: Ann Marie Cassidy Status: PRE IN Location: [facility] DATE OF SERVICE: 10/25/2016 This is [...] a previous right total knee arthroplasty in [facility] 2013, is very pleased with the surgical [...] arthroplasty i n 2003, Dr. Darien Avina, [facility]. 2. Hysterectomy. 3. Appendectomy. 4. Cholecystectomy. 5. Brain surgery x2. Arnold-Chiari malformation. 6. Carpal tunnel bilaterally. 7. Cervical surgery in Ap [place]il 2013 in [place]. 8. Right total knee arthroplasty on August 19, 2014, Dr. Darien Avina, [facility]. 9. Laminectomy 2001 instrumentation, lumbar fusion. 10. Right total hip arthroplasty in 2013 , revision. ASSISTIVE DEVICES: The patient admits to full upper dentures. Denies glasses or hearing aids. SOCIAL HISTORY: The patient is retired, but works part-time. She denies tobacco use, denies al cohol use, denies illicit drug use. REVIEW OF SYSTEMS: Documented in the [facility] medical history sheet. Please refer to attached [...] X-rays of l eft knee dated 10/17/2016, [facility], weightbearing, AP, tunnel, [...] Ann Marie Cassidy; Glenn Ro Date Dictated: 10/19/161536 Date Transcribed: 10/19/161536 Pulmonary Fellow: Toni igned ____ I have re-examined the patient. There are no clinical changes since date of exam. ____ See Progress Notes for Changes ____ Dictated on Admission Date: Time: Sig nature: 23-Oct-2016 Chest PA and Lateral Result: Comments: See Note; NOTES: [facility] Imaging Services [address] [place] [address] Jeffrydana 4d Chest PA and Lateral MR#: [id number] Acct: [id number] Name: MAR MAHARAJ Rep #: [id number] : 1945 F 71 From: Heraclio Meredith MD PCP: Ann Marie Cassidy Status: PRE ER Study: Chest PA and Lateral Date of Exam: 10/23/16 Exam# [id number] Ordering Dr: Edin Horton MD STUDY: X-RAY [...] MD at 14:44 EST , Service support [phone], CC: Chay Cassidy; Edin Horton MD Pulmonary Fellow: Signed 23-Sep-2016 Echocardiogram Complete Result: Comments: See Note; NOTES: [facility] Cardiovascular Services [address] [place] [address] Echo Complete 09/23/16 1311 MR#: [id number] Acct: [id number] Name: MAR MAHARAJ Rep #: [id number] : 1945 71 From: Sergio Lawler MD Attending Dr: Sergio Lawler MD Status: REG CLI Ordering Dr: Sergio Lawler MD Date: 09/23/16 Location: [facility] Sex: F C Admitted: Reason [...] Date Dictated: 09/23/16 1311 Date Transcribed: 09/23/16 152 Pulmonary Fellow: Signed 21-Sep-2016 12 Lead Electrocardiogram Result: Comments: See Note; NOTES: [facility] Cardiovascular Services [address] [place] [address] 12 Lead EKG 09/18/16 1204 MR#: [id number] Acct: [id number] Name: MAR MAHARAJ Re p #: [id number] : 1945 71 From: Corey Harrison MD [...] Abnormal ECG Confirmed by OMAR ARAGON, COREY ([id number]), online content editor CHRISTIAN WASHINGTON ([id number]) on 09/21/2016 1:40:15 PM Referred By: FLORIN Confirmed By:COREY HARRISON MD 09/21/16 1340 Date Corey Harrison MD CC: Ann Marie Cassidy Date Dictated: 09/18/16 1204 Date Transcribed: 09/18/16 1204 Pulmonary Fellow: Signed 20-Sep-2016 Emergency Department Summary Result: Comments: See Note; NOTES: [facility] Medical Records Department [address] [place] [address] Emergency Department Summary MR#: [id number] Acct: [id number] Name: JOHN MAHARAJ Rep #: [id number] : 1945 71 From: Eidn Rodriguez MD PCP: Ann Marie Cassidy Status: [...] Bronch itis, possible early pneumonia. DISPOSITION: Home. MD Radha Hawkins C: Ann Marie Cassidy T: NTS JOB: [id number] 09/20/16 1522 <Electronically signed by Edin Rodriguez MD> Date __ Edin Rodriguez MD Cosigner Signature (If Indicated): Date CC: Ann Marie Cassidy Date Dictated: 09/18/161338 Date Trans cribed: 09/18/161338 Pulmonary Fellow: Signed 18-Sep-2016 Discharge Instruction Result: Comments: See Note; NOTES: [facility] Medical Records Department [address] [place] [address] Discharge Instruction 09/18/16 1334 MR#: [id number] Acct: [id number] Name: Radha MAHARAJ Rep #: [id number] : 1945 71 From: Edin Rodriguez MD [...] your Primary Care Provider. Call [facility] ([phone]) or report to the closest Emergency Room. Call 911 if necessary. 09/18/16 1336 & #60;Electronically signed by Edin Rodriguez MD> Date Edin Rodriguez MD Cosigner Signature (If Indicated): Date CC: Ann Marie Cassidy 18-Sep-2016 Chest PA and Lateral Result: Comments: See Note; NOTES: [facility] Imaging Services [address] [place] [address] Verdana 4d Chest PA and Lateral MR#: [id number] Acct: [id number] Name: MAR MAHARAJ Rep #: [id number] : 1945 F 71 From: Rolly Aviles MD PCP: Ann Marie Cassidy Status: REG ER Study: Chest PA and Lateral Date of Exam: 09/18/16 Exam# [id number] Ordering Dr: Edin Rodriguez MD STUDY: X-RAY [...] 13:29 EST Te l , Service support [phone], CC: Ann Marie Cassidy; Edin Rodriguez MD Pulmonary Fellow: Signed 17-Aug-2016 Knee 4 or More Views Result: Comments: See Note; NOTES: [facility] Imaging Services [address] [facility] [place] [address] Verdana 4d Knee 4 or More Views MR#: [id number] Acct: [id number] Name: MAR MAHARAJ Rep #: [id number] : 1945 F 71 From: Florian Valenzuela MD PCP: Davian Mccray Status: REG CLI Study: Knee 4 or More Views Date of Exam: 08/17/16 Exam# [id number] Ordering Dr: Gemma Nina MD STUD Y: [...] Florian Valenzuela MD at 15:48 EST Tel [phone], Service support [phone], CC: Tejal Mccray; Gemma Nina MD Pulmonary Fellow: Signed 17-Aug-2016 Tibia AND Fibula 2 Views Result: Comments: See Note; NOTES: [facility] Imaging Services [address] [place] [address] Verdana 4d Tibia AND Fibula 2 Views MR#: [id number] Acct: [id number] Name: MAR MAHARAJ Rep #: [id number] : 1945 F 71 From: Florian Valenzuela MD PCP: Davian Mccray Status: REG CLI Study: Tibia AND Fibula 2 Views Date of Exam: 08/17/16 Exam# [id number] Ordering Dr: Gemma Nina STUDY: X-RAY - [...] Florian Valenzuela MD at 15:42 EST Tel [phone], Service support [phone], CC: Davian Nina MD Pulmonary Fellow: Signed 01-Jul-2016 Venous Duplex Lower Extremity Result: Comments: See Note; NOTES: [facility] Cardiovascular Services [address] [place] [address] Venous Duplex US, Unilateral 07/01/16 0850 MR#: [id number] Acct: [id number] Name: MAR MAHARAJ Rep #: [id number] : 1945 70 From: David Hawthorne MD Attending Dr: Luly Noriega HEALTH NAVIGATOR Status: REG CLI Ordering Dr: Luly Noriega HEALTH NAVIGATOR-C Date: 07/01/16 Location: [facility] Sex: F C [...] called and/or faxed augmentation. to Luly Noriega HEALTH NAVIGATOR @ 9:20 am @ [facility] is [...] Cassidy Performed By: Patricia Pickett, JULIETA, RVT 07/01/161936 Date David Hawthorne MD CC: Luly NoriegaAlexander Mccray Date Dictated: 07/01/16 0850 Date Transcribed: 07/01/161936 Pulmonary Fellow: Signed 07-Jun-2016 6 Minute Walk Test Result: Comments: See Note; NOTES: [facility] Pulmonary Services/Neurology [address] [place] [address] MR#: [id number] Acct: [id number] Name: MAR MAHARAJ Rep #: [id number] : 1945 70 From: Adair Wu MD Referring Dr: Luly Noriega NP Date: Ordering Dr: Sex: F C Location: PSN PSN 6 Minute Walk Test - 6 Minute Walk Test 6 Minute Walk Test: 6 Minute Walk Test PSN:6-Minute Walk Test Start: 06/07/16 11:18 Freq: Status: Active Document 06/07/16 11:18 REK (Rec: 06/07/16 11:21 REK [id number]) 6 Minute Walk Test Date Performed 06/07/16 [...] CC: Date Dictated: 06/07/161540 Date Transcribed: 06/07/161540 Pulmonary Fellow: Adair Wu Signed 25-Apr-2016 Chest PA and Lateral Result: Comments: See Note; NOTES: [facility] Imaging Services [address] [place] [address] Verdana 4d Chest PA and Lateral MR#: [id number] Acct: [id number] Name: MAR MAHARAJ Katy p #: [id number] : 1945 F 70 From: Stephen Walton DO PCP: Davian Mccray Status: [facility] ER Study: Chest PA and Lateral Date of Exam: 04/25/16 Exam# [id number] Ordering Dr: Cristhian Mandujano MD STUDY: X-R [...] Stephen Walton DO at 20:12 EDT Tel [phone], Service support [phone], CC: CRISTHIAN MANDUJANO MD; Davian Mccray Pulmonary Fellow: Signed 25-Apr-2016 Abdomen/Pelvis without Cont Result: Comments: See Note; NOTES: [facility] Imaging Services [address] [place] [address] Verdana 4d Abdomen/Pelvis without Cont MR#: [id number] Acct: [id number] Name: GABE MAHARAJ S Rep #: [id number] : 1945 F 70 From: Stephen Walton DO PCP: Davian Mccray Status: REG ER Study: Abdomen/Pelvis without Cont Date of Exam: 04/25/16 Exam# [id number] Ordering Dr: Cristhian Mandujano MD STUDY: CT [...] Stephen Walton DO at 19:00 EDT Tel [phone], Service support [phone], CC: CRISTHIAN MANDUJANO MD; Davian Mccray Pulmonary Fellow: Signed 12-Mar-2016 Emergency Department Summary Result: Comments: See Note; NOTES: [facility] Medical Records Department [address] [place] [address] Emergency Department Summary MR#: [id number] Acct: [id number] Name: MAR MAHARAJ Rep #: [id number] : 1945 70 From: Darien Warren MD [...] contusion. Darien Warren MD T: NTS JOB: [id number] 03/12/16 0306 <Electronically signed by Darien Warren MD> Date Darien Warren MD Cosigner Signature (If Indicated): Date CC: Davian Mccray Date Dictated: 2326 Date Transcribed: 03/10/162326 Pulmonary Fellow: Signed 10-Mar-2016 Discharge Instruction Result: Comments: See Note; NOTES: [facility] Medical Records Department [address] [facility] [address] Discharge Instruction 03/10/162006 MR#: [id number] Acct: [id number] Name: MAR MAHARAJ Rep #: [id number] : 1945 70 From: Darien Warren MD [...] problems, contact your doctor. Call [facility] ([phone]) or report to the closest Emergency Room. Call 911 if necessary. 03/10/162007 <Electronically signed by Darien Warren MD> Date Darien Warren MD Cosigner Signature (If Indicated): Date CC: Davian Mccray 10-Mar-2016 Hip 2-3 Views with Pelvis Result: Comments: See Note; NOTES: [facility] Imaging Services [address] [place] [address] Verdana 4d Hip 2-3 Views with Pelvis MR#: [id number] Acct: [id number] Name: MAR DEAN Rep #: [id number] : 1945 F 70 From: Robles Mejia PCP: Davian Mccray Status: REG ER Study: Hip 2-3 Views with Pelvis Date of Exam: 03/10/16 Exam# [id number] Ordering Dr: Carlos Eduardo Warren MD STUDY: [...] No fracture or dislocation. Electronically Signed: Robles Mejia DO at 19:47 EDT , Service support [phone], RAD/Hip 2-3 Views with Pelvis IMPRESSION: Hip joint space narrowing. Stable degenerative changes left hip. No fracture or dislocation. 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 ABNORMAL 25-Jan-2016 Pelvis 1 or 2 Views Result: Comments: See Note; NOTES: [facility] Imaging Services [address] [place] [address] Verdana 4d Pelvis 1 or 2 Views MR#: [id number] Acct: [id number] Name: CAROL ANNRadha CHAMBERLAIN Toni Rep #: [id number] : 1945 F 70 From: Doroteo Salgado MD PCP: Davian Mccray Status: REG CLI Study: Pelvis 1 or 2 Views Date of Exam: 01/25/16 Exam# [id number] Ordering Dr: Yadira Nina dma, MD STUDY: [...] at 16 :50 EDT , Service support [phone], RAD/Pelvis 1 or 2 Views IMPRESSION: Focus [...] at 16:50 EDT , Service suppor t [phone], CC: Davian Mccray; Gemma Nina MD Pulmonary Fellow: Signed 19-Nov-2015 Vert Fx Asess/Lat Bone Den(H) Result: Comments: See Note; NOTES: [facility] Imaging Services [address] [place] [address] Verdana 4d Vert Fx Asess/Lat Bone Den(H) MR#: [id number] Acct: [id number] Nam e: MAR MAHARAJ Rep #: [id number] : 1945 F 70 From: Florian Valenzuela MD PCP: Davian Mccray Status: REG CLI Study: Vert Fx Asess/Lat Bone Den(H) Date of Exam: 11/19/15 Exam# [id number] Ord ering Dr: Davian Mccray STUDY: DUAL ENERGY [...] Florian Valenzuela MD at 8:52 EDT Tel [phone], Service support [phone], CC: Davian Mccray Pulmonary Fellow: Signed 19-Nov-2015 Bilat Scrn Digital AND CAD Result: Comments: See Note; NOTES: [facility] Imaging Services [address] [place], [place] [address] [address] Verdana 4d Bilat Scrn Digital AND CAD MR#: [id number] Acct: [id number] Name: MAR MAHARAJ Rep #: [id number] : 1945 F 70 From: Florian Valenzuela MD PCP: Davian Mccray Status: REG CLI Study: Bilat Scrn Digital AND CAD Date of Exam: 11/19/15 Exam# [id number] Ordering Dr: Davian Mccray MAMMOGRAPHY - BILATERAL [...] Florian Valenzuela MD at 10:06 EDT Tel [phone], Service support [phone], CC: Davian Mccray Pulmonary Fellow: Signed 19-Nov-2015 Bilat Scrn Digital AND CAD Result: Comments: See Note; NOTES: [facility] Imaging Services [address] [place] [address] Verdana 4d Bilat Scrn Digital AND CAD MR#: [id number] Acct: [id number] Name: MAR MAHARAJ Rep #: [id number] : 1945 F 70 From: Florian Valenzuela MD PCP: Davian Mccray Status: REG CLI Study: Bilat Scrn Digital AND CAD Date of Exam: 11/19/15 Exam# [id number] Ordering Dr: Davian Mccray MAMMOGRAPHY - BILATERAL [...] Florian Valenzuela MD at 10:06 EDT Tel [phone], Service support [phone], CC: Davian Mcrcay Pulmonary Fellow: Signed 19-Nov-2015 Dexa Bone Density Study (HP) Result: Comments: See Note; NOTES: [facility] Imaging Services [address] [place] [address] Verdana 4d Dexa Bone Density Study (HP) MR#: [id number] Acct: [id number] Name : MAR MAHARAJ Rep #: [id number] : 1945 F 70 From: Florian Valenzuela MD PCP: Davian Mccray Status: [facility] Study: Dexa Bone Density Study (HP) Date of Exam: 11/19/15 Exam# [id number] Order ing Dr: Davian Mccray STUDY: DUAL [...] Florian Valenzuela MD at 12:53 EDT Tel [phone], Service support [phone], F ax [phone] CC: Davian Mccray Pulmonary Fellow: Signed 19-Nov-2015 Thyroid Result: Comments: See Note; NOTES: [facility] Imaging Services [address] [place] [address] Verdana 4d Thyroid MR#: [id number] Acct: [id number] Name: MAR MAHARAJ Rep #: [id number] : 1945 F 70 From: Stephen Walton DO PCP: Davian Mccray Status: REG CLI Study: Thyroid Date of Exam: 11/19/15 Exam# [id number] Ordering Dr: Davian Mccray STUDY: THYROID ULTRASOUN [...] Stephen Walton DO at 16:48 EDT Tel [phone], Service support [phone], CC: Davian Mccray Pulmonary Fellow: Signed 17-Dec-2014 Cerv Spine 2 or 3 Views Result: Comments: See Note; NOTES: [facility] Imaging Services [address] [place] [address] Radiology Report MR#: [id number] Acct: [id number] Name: MAR MAHARAJ Rep #: [id number] : 1945 F 69 From: Vitaly Turner MD PCP: Libby Mai DO Status: REG CLI Study: Cerv Spine 2 or 3 Views Date of Exam: 12/17/14 Exam# [id number] Ordering Dr: Jose Alejandro Yepez STUDY: X-RAY [...] at 11:32 EDT Tel , Service support [phone], 0045 RAD/Cerv Spine 2 or 3 Views IMPRESSION: Status post anterior fusion from C3-C6, with 3 mm extrusion of the C6 screw. Loss of the normal lordosis. No signs of instability. Electronically Signed: Vitayl Turner MD, FACR at 11:32 EDT , Service support [phone], CC: JOSE ALEJANDRO Mai DO Pulmonary Fellow: Signed 17-Dec-2014 Spine Cervical (Routine) Result: Comments: See Note; NOTES: [facility] Imaging Services [address] [place] [address] MRI Report MR#: [id number] Acct: [id number] Name: MAR MAHARAJ Rep #: [id number] : 1945 F 69 From: Vitaly Turner MD PCP: Libby Mai DO Status: REG CLI Study: Spine Cervical (Routine) Date of Exam: 12/17/14 Exam# [id number] Ordering Dr: Jose Alejandro Yepez STUDY: MRI [...] FACR at 11:15 EDT , Service support [phone], CC: JOSE ALEJANDRO YEPEZ; Libby Mai DO Pulmonary Fellow: Signed 15-Dec-2014 Thyroid Result: Comments: See Note; NOTES: [facility] Imaging Services [address] [place] [address] Ultrasound Report MR#: [id number] Acct: [id number] Name: MAR MAHARAJ Rep #: [id number] : 1945 F 69 From: Stephen Walton DO PCP: Libby Mai DO Status: REG CLI Study: Thyroid Date of Exam: 12/15/14 Exam# [id number] Ordering Dr: Lisa Garcia MD STUDY: THYROID [...] Stephen Walton DO at 13:38 EDT Tel [phone], Service support [phone], CC: Libby Mai DO; Lisa Garcia MD Pulmonary Fellow: Signed 17-Nov-2014 Valeri Thrasher Digital AND CAD Result: Comments: See Note; NOTES: [facility] Imaging Services [address] [place] [address] Breast Imaging Report MR#: [id number] Acct: [id number] Name: MAR MAHARAJ Rep #: [id number] : 1945 F 69 From: Alfa Bettencourt MD PCP: Libby Mai DO Status: REG CLI Study: Valeri Thrasher Digital AND CAD Date of Exam: 11/17/14 Exam# [id number] Ordering Dr: Libby Mai DO MAMMOGR APHY [...] at 12:06 EDT Tel , Service support [phone], CC: Libby Mai DO Pulmonary Fellow: Signed 17-Nov-2014 Chest without Contrast Result: Comments: See Note; NOTES: [facility] Imaging Services [address] [place] [address] CAT Scan Report MR#: [id number] Acct: [id number] Name: MAR MAHARAJ Rep #: [id number] : 1945 F 69 From: Alfa Bettencourt MD PCP: Libby Mai DO Status: REG CLI Study: Chest without Contrast Date of Exam: 11/17/14 Exam# [id number] Ordering Dr: Libby Mai DO STUDY: CT [...] at 10:21 EDT Tel , Service support [phone], CC: Libby Mai DO Pulmonary Fellow: Signed 23-Sep-2014 Brain/Head without Contrast Result: Comments: See Note; NOTES: [facility] Imaging Services [address] [place] [address] CAT Scan Report MR#: [id number] Acct: [id number] Name: MAR MAHARAJ Rep #: [id number] : 1945 F 69 From: Parminder Rashid MD PCP: Libby Mai DO Status: REG ER Study: Brain/Head without Contrast Date of Exam: 09/23/14 Exam# [id number] Ordering Dr: Rachel Avina MD STUDY: CT [...] MD at 21:19 EST , Service support [phone], CC: Libby Mai DO; Rachel Avina MD Pulmonary Fellow: Signed 23-Sep-2014 Spine Cervical without Contras Result: Comments: See Note; NOTES: [facility] Imaging Services [address] [place] [address] CAT Scan Report MR#: [id number] Acct: [id number] Name: MAR MAHARAJ Rep #: [id number] : 1945 F 69 From: Parminder Rashid MD PCP: Libby Mai DO Status: REG ER Study: Spine Cervical without Contras Date of Exam: 09/23/14 Exam# [id number] Ordering Dr: Rachel Avina MD LORENA DY: [...] MD at 21:25 EST , Service support [phone], CC: Libby Mai DO; Rachel Avina MD Pulmonary Fellow: Signed 21-Aug-2014 Discharge Instruction Result: Comments: See Note; NOTES: [facility] Medical Records Department [address] [place] [address] Instructions for Home/Discharge Instructions 08/21/14 1712 MR#: [id number] [facility] t: [id number] Name: MAR MAHARAJ Rep #: [id number] : 1945 69 From: Galo Antonio PA-C [...] needed. Additional Instructions: F/U APPT S PER [facility] POST-OP INSTRUCTIONS F/U WITH GLENN RO 09/03/14 9:15 AM PHYSICAL THERAPY APPT WITH COREY @ [facility] 08/25/14 @ 9:00 AM, WILL HAVE TO [...] Please Follow Up With: Glenn Ro 08/21/14 6986 <Electronically signed by Galo Antonio PA-C> Date ___ Galo Antonio PA-C CC: Libby Mai DO 19-Aug-2014 Knee 1 or 2 Views Result: Comments: See Note; NOTES: [facility] Imaging Services [address] [place] [address] Radiology Report MR#: [id number] Acct: [id number] Name: MAR MAHARAJ Rep #: [id number] : 1945 F 69 From: Bakari Kenny MD PCP: Libby Mai DO Status: ADM IN Study: Knee 1 or 2 Views Date of Exam: 08/19/14 Exam# [id number] Ordering Dr: Darien Avina MD STUDY: X-RAY [...] MD at 16:29 EST , Service support [phone], CC: Libby Mai DO; Darien Avina MD Pulmonary Fellow: Signed 12-Aug-2014 History and Physical Exam Result: Comments: See Note; NOTES: [facility] Medical Records Department [address] [place] [address] History and Physical 08/11/14 1334 MR#: [id number] Acct: [id number] Name: MAR MAHARAJ Rep #: [id number] : 1945 69 From: Glenn Ro PCP: Libby Mai DO Status: PRE IN Location: [facility] DATE OF SERVICE: 08/19/2014 PRIMARY CARE [...] b.i.d. REVIEW OF SYSTEMS: Documented in the [facility] medical history sheet. Please refer to the [...] of right knee dated May 30, 2014, [facility], weightbearing, AP, tunnel, [...] above- stated procedure and signed [facility]. YADIRA Narvaez T: NTS JOB: [id number] 08/12/14 0740 <Electronically signed by Glenn Ro > Date: Time: Glenn Ro CC: Glenn Mai DO Date Dictated: 08/11/141333 Date Transcribed: 08/11/141333 Pulmonary Fellow: Signed ____ I have re-examined the patient. There a re no clinical changes since date of exam. ____ See Progress Notes for Changes ____ Dictated on Admission Date: Time: Signature: 23-May-2014 Hip min 2 Views Result: Comments: See Note; NOTES: [facility] Imaging Services [address] [facility] [place] [address] Radiology Report MR#: [id number] Acct: [id number] Name: MAR MAHARAJ Rep #: [id number] : 1945 F 68 From: Florian Valenzuela MD PCP: Libby Mai DO Status: REG CLI Study: Hip min 2 Views Date of Exam: 05/23/14 Exam# [id number] Ordering Dr: Libby Mai DO STUDY: X-RAY [...] No acute abnormality is seen. Electronically Signed: Florina Valenzuela MD at 9:41 EDT Tel [phone], Service support [phone], CC: Libby Mai DO Pulmonary Fellow: Signed 23-May-2014 Knee 4 or More Views Result: Comments: See Note; NOTES: [facility] Imaging Services [address] [place] [address] Radiology Report MR#: [id number] Acct: [id number] Name: MAR MAHARAJ Rep #: [id number] : 1945 F 68 From: Florian Valenzuela MD PCP: Libby Mai DO Status: REG CLI Study: Knee 4 or More Views Date of Exam: 05/23/14 Exam# [id number] Ordering Dr: Libby Mai DO STUDY: X- [...] Florian Valenzuela MD at 9:42 EDT Tel [phone], Service support [phone], CC: Libby Mai DO Pulmonary Fellow: Signed 02-May-2014 Chest without Contrast Result: Comments: See Note; NOTES: [facility] Imaging Services [address] [place] [address] CAT Scan Report MR#: [id number] Acct: [id number] Name: MAR MAHARAJ Rep #: [id number] : 1945 F 68 From: Cristhian Spears MD PCP: Libby Mai DO Status: REG CLI Study: Chest without Contrast Date of Exam: 05/02/14 Exam# [id number] Ordering Dr: Libby Mai DO STUDY: CT [...] at 15:32 EDT Tel , Service support [phone], CC: Libby Mai DO Pulmonary Fellow: Signed 02-May-2014 Thyroid Result: Comments: See Note; NOTES: [facility] Imaging Services [address] [place] [address] Ultrasound Report MR#: [id number] Acct: [id number] Name: MAR MAHARAJ Rep #: [id number] : 1945 F 68 From: Stephen Walton DO PCP: Libby Mai DO Status: REG CLI Study: Thyroid Date of Exam: 05/02/14 Exam# [id number] Ordering Dr: Libby Mai DO STUDY: THYROID [...] Stephen Walton DO at 19:17 EDT Tel [phone], Service support [phone], CC: Libby Mai DO Pulmonary Fellow: Signed 27-Feb-2014 L/S Spine Min 4 Views Result: Comments: See Note; NOTES: [facility] Imaging Services [address] [place] [address] Radiology Report MR#: [id number] Acct: [id number] Name: MAR MAHARAJ Rep #: [id number] : 1945 F 68 From: Florian Valenzuela MD PCP: Libby Mai DO Status: REG CLI Study: L/S Spine Min 4 Views Date of Exam: 02/27/14 Exam# [id number] Ordering Dr: Jose Alejandro Yepez STUDY: X-R [...] Florian Valenzuela MD at 10:31 EDT Tel [phone], Service support [phone], RAD/L/S Spine Min 4 Views IMP RESSION: The patient is status post laminectomy and fusion at the L3-L4 and L4- L5 levels with bone graft and bone stimulator. Grade 2 anterolisthesis of L4 on L5. Electronically Signed: Florian khan MD at 10:31 EDT Tel [phone], Service support [phone], CC: JOSE ALEJANDRO YEPEZ; Libby Mai DO Pulmonary Fellow: Signed 27-Feb-2014 Spine Lumbar (Routine) Result: Comments: See Note; NOTES: [facility] Imaging Services [address] [place] [address] MRI Report MR#: [id number] Acct: [id number] Name: MAR MAHARAJ Rep #: [id number] : 1945 F 68 From: Angus Arreola PCP: Libby Mai DO Status: REG CLI Study: Spine Lumbar (Routine) Date of Exam: 02/27/14 Exam# [id number] Ordering Dr: Jose Alejandro Yepez STUDY: MRI [...] MD at 7:48 EDT , Service support [phone], CC: JOSE ALEJANDRO YEPEZ; Libby Mai DO Pulmonary Fellow: Signed 10-Feb-2014 Cerv Spine 2 or 3 Views Result: Comments: See Note; NOTES: [facility] Imaging Services [address] [place] [address] Radiology Report MR#: [id number] Acct: [id number] Name: MAR MAHARAJ Rep #: [id number] : 1945 F 68 From: Florian Valenzuela MD PCP: Libby Mai DO Status: REG CLI Study: Cerv Spine 2 or 3 Views Date of Exam: 02/10/14 Exam# [id number] Ordering Dr: Jose Alejandro Yepez STUDY: X [...] Florian Valenzuela MD at 15:54 EDT Tel [phone], Service support [phone], RAD/Cerv Spine 2 or 3 Views IMPRESSION: Status post anterior fu tamika at the C3-C4, C4-C5 and C5-C6 levels. No abnormal movement occurs between the vertebral segments. Electronically Signed: Florian Valenzuela MD at 15:54 EDT Tel [phone], Service support [phone], CC: JOSE ALEJANDRO YEPEZ; Libby Mai DO Pulmonary Fellow: Signed 13-Jan-2014 Echocardiogram Complete Result: Comments: See Note; NOTES: [facility] Cardiovascular Services [address] [place] [address] Echo Complete 01/10/14 1155 MR#: [id number] Acct: [id number] Name: LESLY MAHARAJ Rep #: [id number] : 1945 68 From: Sergio Lawler MD Attending Dr: Nuris ARAGON,Sergio Status: REG CLI Ordering Dr: Sergio Lawler MD Date: 01/10/14 Location: [facility] Sex: F C Admitted: [facility] This was a 2D Doppler, Color Flow [...] Ordering Physician: Sergio Lawler Performed By: Brenda Wolfe, JULIETA Electro nically signed by: Sergio Lawler MD on 01/13/2014 11:03 AM CC: Sergio Lawler MD; Libby Mai DO Date Dictated: 01/10/14 1155 Date Transcribed: 01/13/14 1103 Pulmonary Fellow: Signed 20-Jun-2013 Bilat Scrn Digital & CAD Result: Comments: See Note; NOTES: [facility] Imaging Services [address] [facility] [place] [address] Breast Imaging Report MR#: [id number] Acct: [id number] Name: MAR MAHARAJ Rep #: [id number] : 1945 F 67 From: Florian Valenzuela MD PCP: Status: REG CLI Exam# [id number] Ordering Dr: Libby Mai DO MAMMOGRAPHY - [...] 20, 2013 at 9: 52:55 AM EDT [phone] Electronically Signed GP/GP If you are the referring physician and would like to consult with the radiologist who provided this interpretation, please contact Florian Valenzuela M.D. at [phone]. If this radiologist is unavailable, you will be directed to another radiologist to assist. If you are a patient with a question regarding this report, please contact your referring physician directly. Professional Interpretation Provided By: [employer], Phone , These documents contain legally protected [...] of these documents. CC: Harman Mai DO Pulmonary Fellow: Signed 20-Jun-2013 Dexa Bone Density Study (HP) Result: Comments: See Note; NOTES: [facility] Imaging Services [address] [place] [address] Bone Density Report MR#: [id number] Acct: [id number] Name: MAR MAHARAJ Rep #: [id number] : 1945 F 67 From: Florian Valenzuela MD PCP: Status: REG CLI Study: Dexa Bone Density Study (HP) Date of Exam: 06/20/13 Exam# [id number] Ordering Dr: Libby Mai DO STUDY: DUAL [...] angel luis mbar spine. On the lateral cloth mercerizing supervisor view, there is evidence of loss of [...] June 20, 2013 at 10:14:39 AM EDT [phone] Electronically Signed GP/GP If you are the referring physician and would like to consult with the radiologist who provided this interpretation, please contact Florian Valenzuela M.D. at [phone]. If this radiologist is unavailable, you will be directed to another radiologist to assist. If you are a patient with a question regarding this report, plea se contact your referring physician directly. Professional Interpretation Provided By: [employer], Phone , These documents contain legally protected [...] of these documents. CC: Libby Mai DO Pulmonary Fellow: Signed 06-Jun-2013 Chest without Contrast Result: Comments: See Note; NOTES: [facility] Imaging Services [address] [place] [address] CAT Scan Report MR#: [id number] Acct: [id number] Name: MAR MAHARAJ Rep #: [id number] : 1945 F 67 From: Florian Valenzuela MD PCP: Status: REG CLI Study: Chest without Contrast Date of Exam: 06/06/13 Exam# [id number] Ordering Dr: Libby Mai DO STUDY: CT [...] June 06, 2013 at 10:07:38 AM EDT [phone] Electronically Signed GP/GP If you are the referring physician and would like to consult with the radiologist who provided this interpretation, please contact Florian Valenzuela M.D. at [phone]. If this radiologist is unavailable, you will be directed to another radiologist to assist. If you are a patient with a question regarding this report, please contact your referring physician directly. Professional Interpretation Provided By: [employer], Phone , These documents contain legally protected [...] of these documents. CC: Libby Mai DO Pulmonary Fellow: Signed 06-Jun-2013 Chest without Contrast Result: Comments: See Note; NOTES: [facility] Imaging Services [address] [place] [address] CAT Scan Report MR#: [id number] Acct: [id number] Name: MAR MAHARAJ Rep #: [id number] : 1945 F 67 From: Florian Valenzuela MD PCP: Status: REG CLI Study: Chest without Contrast Date of Exam: 06/06/13 Exam# [id number] Ordering Dr: Libby Mai DO STUDY: CT [...] June 06, 2013 at 10:07:38 AM EDT [phone] Electronically Signed GP/GP If you are the referring physician and would like to consult with the radiologist who provided this interpretation, please contact Florian Valenzuela M.D. at [phone]. If this radiologist is unavailable, you will be directed to another radiologist to assist. If you are a patient with a question regarding this report, please contact your referring physician directly. Professional Interpretation Provided By: Sh[employer], Phone , These documents contain legally protected [...] of these documents. 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[employer] Status: Active Smoking Status Name Dates [...] kg/m2 Body Surface Area Calculated 1.75 m2 :15 Temperature 97.8 f Pulse 109 /min Comments: [...] Area Calculated 1.72 m2 :33 Comments: hearing wnlDr. Chatterjee and had a glaucoma test done [...] 0.00 cm Results Date Description Value Details 91-Soo-226695:34 CBC W/Diff, Automated Comments: [facility] [address] [place], [place], [id number] Absolute Lymph 1.24 {X10_3/ul} (Normal) Range: 0.83-4.51 [...] 4.2-5.4 WBC 6.6 K/mm3 (Normal) Range: 4.4-11.0 94-Kih-150400:34 Comprehensive Metabolic Profil Comments: [facility] [address] [place], [place], [address] GAP 11 (Normal) Range: 5-15 CO2 28.0 [...] A.D.A. criteria.Please note revised GLUCOSE reference range hcjompbsz54/02/2018. :32 HgA1C , Office (36411) HgA1C , Office 6.3 % (Normal) Range: 4.6 - 7.1 :32 Blood Glucose , Office (10389) Blood Glucose , Office 133 (Normal) 56-Gzg-442724:16 Miscellaneous Lab Procedure Comments: Comments: [id number]; URINE TOX; [facility] Ordered: [id number]; URINE TOX; RUN LOWEST TEST IN [facility] [address] [place], [place], [address] [facility] Comments: [id number] 6+OXYCODONE-BUND (ng/mL)DRUG RESULT SCREEN CUTOFF____ Amphetamines,Urine Negat LAB (Normal) ananth ng/mL 1000Amphetamine test includes Amphetamine and Methamphetamine.Barbiturates Negative ng/mL 200Benzodiazepines Negative ng/mL 200Cannabinoid TEST Negative ng/mL 20Cocaine (Metab) Negative ng/mL 300Opiates Negative ng/mL 300 Opiates test includes Codeine, Morphine, Hydromorphone, [place] codone.Oxycodone/Oxymorphone,Urine Negative ng/mL 300 Test includes Oxydodone and Oxymorphone. TESTING PERFORMED AT [facility]. ORIGINAL REPORT ON FILE IN LAB CONTAINS ADDITIONAL TEST SITE INFORMATION. 34-Gfq-300468:16 Urine Drug Screen (VISTA) Comments: Comments: [id number]; URINE TOX; RUN LOWEST TEST IN [facility] Drugs Taken or Suspected? [facility] [address] [place], [place], [id number] THC NEGATIVE (Normal) PCP NEGATIVE (Normal) OPIATES [...] TESTING MUST BE ORDERED SEPARATELY. USE TESTMNEMONIC: [facility] :28 Microscopic Examination Comments: PATIENT WAS FASTINGPERFORMED BY: [facility] Phjbnb9702 [facility] [id number] Bacteria Few (Normal) Mucus Threads Present (Normal) Epithelial Cells (non renal) 0-10 {/hpf} (Normal) Range: 0 - 10 RBC 0-2 {/hpf} (Normal) Range: 0 - 2 WBC 0-5 {/hpf} (Normal) Range: 0 - 5 :52 Basic Metabolic Profile (BMP) Comments: [facility] [address] [place], [place], [address] GAP 10 (Normal) Range: 5-15 CO2 27.0 [...] A.D.A. criteria.Please note revised GLUCOSE reference range caalnoryq99/02/2018. 07-May-20188:52 CBC W/Diff, Automated Comments: [facility] [address] [place], [address] Absolute Lymph 1.75 {X10_3/ul} (Normal) Range: 0.83-4.51 [...] Range: 4.4-11.0 :05 CBC W/Diff, Automated Comments: [facility] [address] [place], [place], [address] Absolute Lymph 1.82 {X10_3/ul} (Normal) Range: 0.83-4.51 [...] Range: 4.4-11.0 :05 Comprehensive Metabolic Profil Comments: [facility] [address] [place], [address] GAP 12 (Normal) Range: 5-15 CO2 28.0 [...] A.D.A. criteria.Please note revised GLUCOSE reference range pteyzsmpc77/02/2018. 71-Bch-25918:28 CALCIFEDIOL (26049) Comments: PATIENT WAS FASTINGPERFORMED BY: [facility]6370 [facility] [id number] Vitamin D, 25-Hydroxy 45.7 ng/mL (Normal) Range: 30.0-100.0 Comments: Vitamin D deficiency has been defined by the [place] ofMedicine and an Endocrine Society practice guideline as alevel of serum 25-OH vitamin D less than 20 ng/mL (1,2).The Endocrine Society went on to further define vitamin Dinsufficiency as a level between 21 and 29 ng/mL (2).1. IOM ([place] of Medicine). 2010. Dietary reference intakes for calcium and D. [place]: The National AcademKiboo.com Press.2. Delma MF, Mckenna ABDALLA, Dane MACKENZIE, et al. Evaluation, treatment, and prevention of vitamin D deficiency: an Endocrine Society clinical practice guideline. JCEM. 2010; 96(7):1911-30. :28 VITAMIN B-12 (CYANOCOBALAMIN) Comments: PATIENT WAS FASTINGPERFORMED BY: [employer] [facility] [id number] (05968) Vitamin B12 507 pg/mL (Normal) Range: 232-1245 :28 TSH (14022) Comments: PATIENT WAS FASTINGPERFORMED BY: [facility] Cldnrv8023 [facility]in [place] [id number] TSH 0.816 {uIU/mL} (Normal) Range: 0.450-4.500 :28 URINALYSIS, W/ MICRO (16301) Comments: PATIENT WAS FASTINGPERFORMED BY: [employer] LabCanonical6370 [facility] [place] [id number] Microscopic Examination See below: (Normal) Comments: Microscopic was indicated and was performed. Nitrite, Urine Negative (Normal) Urobilinogen,Semi-Qn 0.2 mg/dL (Normal) Range: 0.2-1.0 Bilirubin Negative (Normal) Occult Blood Negative (Normal) Ketones Negative (Normal) Glucose Negative (Normal) Protein Negative (Normal) WBC Esterase 1+ (Abnormal) Appearance Clear (Normal) Urine-Color Yellow (Normal) pH 7.0 (Normal) Range: 5.0-7.5 Specific [place] 1.017 (Normal) Range: 1.005-1.030 :28 MICROALBUMIN: CREATININE RATIO Comments: PATIENT WAS FASTINGPERFORMED BY: [facility]6370 [facility] [id number] (64459) AND (66657) Alb/Creat Ratio 9.9 {mg/g_creat} (Normal) Range: 0.0-30.0 Albumin, Urine 7.9 ug/mL (Normal) Creatinine, Urine 79.8 mg/dL (Normal) :28 METABOLIC PANEL, COMPREHENSIVE Comments: PATIENT WAS FASTINGPERFORMED BY: [facility]6370 [facility] [id number] (59659) ALT (SGPT) 13 [iU]/L (Normal) Range: 0-32 [...] 8-27 Glucose 142 mg/dL (Abnormal) Range: 65-99 :28 LIPID PANEL (07956) Comments: PATIENT WAS FASTINGPERFORMED BY: [facility]Hefqzo7413 [facility] [id number] LDL/HDL Ratio 3.2 {ratio} (Normal) Range: 0.0-3.2 Comments: LDL/HDL Ratio Men Women 1/2 Avg.Risk 1.0 1.5 Av g.Risk 3.6 3.2 2X Avg.Risk 6.2 5.0 3X Avg.Risk 8.0 6.1 LDL Cholesterol Calc 143 mg/dL (Abnormal) Range: 0-99 VLDL Cholesterol Peg 29 mg/dL (Normal) Range: 5-40 HDL Cholesterol 45 mg/dL (Normal) Triglycerides 143 mg/dL (Normal) Range: 0-149 Cholesterol, Total 217 mg/dL (Abnormal) Range: 100-199 64-Met-00962:28 CBC W/AUTO DIFF WBC (61589) Comments: PATIENT WAS FASTINGPERFORMED BY: [employer] Uxvjii7347 [facility] [id number] Immature Grans (Abs) 0.0 {x10E3/uL} (Normal) Range: [...] (Normal) Range: 3.4-10.8 :43 HgA1C , Office (65411) HgA1C , Office 6.3 % (Normal) Range: 4.6 - 7.1 :43 Blood Glucose , Office (78651) Blood Glucose , Office 105 (Normal) :55 MAGNESIUM (15036) Comments: PATIENT NOT FASTINGPERFORMED BY: [facility]Tqfido8637 [facility] [id number] Magnesium 1.6 mg/dL (Normal) Range: 1.6-2.3 :55 POTASSIUM SERUM (37469) Comments: PATIENT NOT FASTINGPERFORMED BY: [facility] Nwhufn0597 [facility] [id number]; ov 02/19 Potassium 4.8 mmol/L (Normal) Range: 3.5-5.2 :59 CBC W/Diff, Automated Comments: [facility] [address] [place], [address] Absolute Lymph 2.55 {X10_3/ul} (Normal) Range: 0.83-4.51 [...] Range: 4.4-11.0 07-Dec-20178:59 Comprehensive Metabolic Profil Comments: [facility] [address] [place], [address] GAP 8 (Normal) Range: 5-15 CO2 32.0 mmol/L (Normal) Range: 21.0-32.0 CL 100 mmol/L (Normal) Range: 98-107 K 3.4 mmol/L (Abnormal) Range: 3.5-5.1 NA 140 mmol/L (Normal) Range: 136-145 T BILI 0.40 mg/dL (Normal) Range: 0.20-1.00 ALT 21 U/L (Normal) Range: 13-56 Comments: Please note revised ALT reference range vwzhujhxp58/28/2018. ALK P 76 U/L (Normal) Range: 45-117 [...] A.D.A. criteria.Please note revised GLUCOSE reference range rrhwukrvh93/02/2018. 6-Nzc-694990:40 Microscopic Examination Comments: PATIENT WAS FASTINGPERFORMED BY: [employer] [id number] BY: [employer] Doyle RoadDublin [place] [id number] Bacteria Few (Normal) Epithelial Cells (non renal) 0-10 {/hpf} (Normal) Range: 0 - 10 RBC None seen {/hpf} (Normal) Range: 0 - 2 WBC 0-5 {/hpf} (Normal) Range: 0 - 5 3-Qzp-598360:40 VITAMIN B-12 (CYANOCOBALAMIN) Comments: PATIENT WAS FASTINGPERFORMED BY: [employer] [address] [id number] BY: [employer] [id number] (01494) Vitamin B12 470 pg/mL (Normal) Range: 232-1245 2-Omf-771433:40 CALCIFIDIOL (16968) VIT D Comments: PATIENT WAS FASTINGPERFORMED BY: [employer] [id number] BY: [employer] [place] [id number] 25 Vitamin D, 25-Hydroxy 36.1 ng/mL (Normal) Range: 30.0-100.0 Comments: Vitamin D deficiency has been defined by the [place] ofMedicine and an Endocrine Society practice guideline as alevel of serum 25-OH vitamin D less than 20 ng/mL (1,2).The Endocrine Society went on to further define vitamin Dinsufficiency as a level between 21 and 29 ng/mL (2).1. IOM ([place] of Medicine). 2010. Dietary reference intakes for calcium and D. [place]: The National Academies Press.2. Delma MF, Mckenna ABDALLA, Dane MACKENZIE, et al. Evaluation, treatment, and prevention of vitamin D deficiency: an Endocrine Society clinical practice guideline. JCEM. 2010; 96(7):1911-30. 4-Ggs-292483:40 LIPOPROTEIN, BLD, BY NMR Comments: PATIENT WAS FASTINGPERFORMED BY: BN [facility] Jvwginjgjy8730 [facility] [id number] BY: CB [facility] Pbfqjg3771 [facility] [id number] (11296) LP-IR Score 80 (Abnormal) Comments: INSULIN RESISTANCE MARKER <--Insulin Sensitive Insulin Resistant--> Percentile in Reference PopulationInsulin Resistance ScoreLP-IR Score Low 25th 50th 75th High <27 27 45 63 >63LP-IR Score is inaccurate if patient is non-fasting. .The LP-IR score is a laboratory developed i [facility] that has beenassociated with insulin [...] were developed and their performance characteristicsdetermined by [employer]. These assays have not been cleared by [...] 1600 - 2000 Very High > 2000 7-Rxt-317970:40 TSH (14249) Comments: PATIENT WAS FASTINGPERFORMED BY: [employer] [place] [address] [id number] BY: [employer]6370 [facility] [id number] TSH 1.780 {uIU/mL} (Normal) Range: 0.450-4.500 1-Zai-554092:40 URINALYSIS, W/ MICRO Comments: PATIENT WAS FASTINGPERFORMED BY: [employer] [id number] BY: [employer]70 [facility] [id number] (62781) Microscopic Examination See below: (Normal) Comments: Microscopic was indicated and was performed. Microscopic Examination MICRON (Normal) Comments: Microscopic follows if indicated. Nitrite, Urine Negative (Normal) Urobilinogen,Semi-Qn 0.2 mg/dL (Normal) Range: 0.2-1.0 Bilirubin Negative (Normal) Occult Blood Negative (Normal) Ketones Negative (Normal) Glucose Negative (Normal) Protein Negative (Normal) WBC Esterase Negative (Normal) Appearance Clear (Normal) Urine-Color Yellow (Normal) pH 7.5 (Normal) Range: 5.0-7.5 Specific [place] 1.016 (Normal) Range: 1.005-1.030 0-Zfx-110090:40 MICROALBUMIN: CREATININE Comments: PATIENT WAS FASTINGPERFORMED BY: Discourse [address] [id number] BY: [facility]Fhefdy7753 [facility] [id number] RATIO (74941) AND (72622) Alb/Creat Ratio 8.6 {mg/g_creat} (Normal) Range: 0.0-30.0 Albumin, Urine 4.7 ug/mL (Normal) Creatinine, Urine 54.7 mg/dL (Normal) 6-Qew-081707:40 METABOLIC PANEL, Comments: PATIENT WAS FASTINGPERFORMED BY: Discourse [address] [id number] BY: KiteDesk70 [facility] [id number] COMPREHENSIVE (18876) ALT (SGPT) 17 [iU]/L (Normal) Range: 0-32 [...] 8-27 Glucose 99 mg/dL (Normal) Range: 65-99 3-Lyy-405725:40 CBC W/AUTO DIFF WBC Comments: PATIENT WAS FASTINGPERFORMED BY: BN [facility] Mgxofsstwb2095 [facility] [id number] BY: CB [facility] Vgcgan2848 [facility] [id number]; ov tomrrow 12/07 (34053) Immature Grans (Abs) 0.0 {x10E3/uL} (Normal) Range: [...] (Normal) Range: 3.4-10.8 :26 HgA1C , Office (50673) HgA1C , Office 6.7 % (Normal) Range: 4.6 - 7.1 :26 Blood Glucose , Office (11726) Blood Glucose , Office 141 (Normal) :10 CBC W/Diff, Automated Comments: [facility] [address] [place], [place], [address] Absolute Lymph 2.70 {X10_3/ul} (Normal) Range: 0.83-4.51 [...] 4.2-5.4 WBC 7.1 K/mm3 (Normal) Range: 4.4-11.0 5-Xgg-994503:10 Comprehensive Metabolic Profil Comments: [facility] [address] [place], [address] GAP 10 (Normal) Range: 5-15 CO2 28.0 mmol/L (Normal) Range: 21.0-32.0 CL 100 mmol/L (Normal) Range: 98-107 K 3.8 mmol/L (Normal) Range: 3.5-5.1 NA 138 mmol/L (Normal) Range: 136-145 T BILI 0.40 mg/dL (Normal) Range: 0.20-1.00 ALT 16 U/L (Normal) Range: 13-56 Comments: Please note revised ALT reference range nqyvadrqm78/28/2018. ALK P 81 U/L (Normal) Range: 45-117 [...] 126 mg/dLsuggests DIABETES MELLITUS per A.D.A. criteria. 2-Zip-651516:10 CRP Comments: [facility] [address] [place], [place], [address] C-REACTIVE PROT 4.26 mg/L (Abnormal) Range: 0.0-3.0 Comments: C-Reactive Protein (CRP) provides useful information for thediagnosis, therapy and monitoring of inflammatory processesand associated diseases. For the evaluation of Relative Riskfor Cardiovascular Dise ase, a High Sensitivity CRP (HSCRP)should be ordered. :10 Erythrocyte Sed Rate Comments: [facility] [address] [place], [place], [address] SED RATE 7 mm/h (Normal) Range: 0-30 :49 Rapid Flu (45995 x 2) Influenza A Ag Positive (Normal) Comments: A, no flu shot 9-Vab-447114:31 Rapid Strep Test, Office (93147) Rapid Strep Test, Office Negative (Normal) 09-Aug-20173:51 THROAT CULTURE (30908) Comments: PATIENT NOT FASTINGPERFORMED BY: KiteDesk70 [facility] [id number] Information: SRC:TH Result 1 RRF (Normal) Comments: Routine respiratory vicente Upper Respiratory Final report Culture (Normal) Lipase, Serum 11 U/L (Abnormal) Comments: PATIENT NOT FASTINGPERFORMED BY: Zimory Lkcxmr4066 [facility] [id number] :30 Range: 14-85 Written Authorization WAR (Normal) Comments: PATIENT NOT FASTINGPERFORMED BY: Zimoryrp Tfnbkz3405 [facility] [id number] :30 Comments: Written Authorization Received.Authorization received from original requistion [id number] by Ann Hartley :30 METABOLIC PANEL, COMPREHENSIVE Comments: stat; PATIENT NOT FASTINGPERFORMED BY: Zimory Ekplmr6424 [facility] [id number] (67393) ALT (SGPT) 5 [iU]/L (Normal) Range: 0-32 [...] Glucose, Serum 99 mg/dL (Normal) Range: 65-99 8-Fqq-622801:30 CBC W/AUTO DIFF WBC (79283) Comments: stat; PATIENT NOT FASTINGPERFORMED BY: [facility]Xbpnzf7888 [facility] [id number] Immature Grans (Abs) 0.0 {x10E3/uL} (Normal) Range: [...] 3.77-5.28 WBC 7.3 {x10E3/uL} (Normal) Range: 3.4-10.8 2-Pjn-064607:31 Rapid Flu (68810 x 2) Influenza A Ag Negative (Normal) 38-Qgh-682644:28 HgA1C , Office (75516) HgA1C , Office 6.3 % (Normal) Range: 4.6 - 7.1 97-Lso-416828:28 Blood Glucose , Office (64262) Blood Glucose , Office 133 (Normal) 08-Ama-065584:27 VITAMIN B-12 (CYANOCOBALAMIN) Comments: PATIENT NOT FASTINGPERFORMED BY: [employer] [facility] [id number] (08345) Vitamin B12 258 pg/mL (Normal) Range: 211-946 94-Xbr-258775:27 MAGNESIUM (50467) Comments: PATIENT NOT FASTINGPERFORMED BY: [employer] [facility]Hay[facility] [id number] Magnesium, Serum 1.6 mg/dL (Normal) Range: 1.6-2.3 62-Icj-815831:27 Metabolic Panel, Basic Comments: PATIENT NOT FASTINGPERFORMED BY: [employer] [facility]Hay[facility] [id number] (83638) Calcium, Serum 9.3 mg/dL (Normal) Range: 8.7-10.3 [...] Urinalysis, Complete Comments: How was Urine Obtained? DRY CLEANING CHECKER TO [facility] [address] [place], [address] MUCUS, URINE 0 SEEN {/hpf} [...] Yellow (Normal) :15 CBC W/Diff, Automated Comments: [facility] [address] [place], [address] Absolute Lymph 1.41 {X10_3/ul} (Normal) Range: 0.83-4.51 [...] 4.2-5.4 WBC 7.7 K/mm3 (Normal) Range: 4.4-11.0 99-Eep-001034:15 Comprehensive Metabolic Profil Comments: [facility] [address] [place], [address] GAP 6 (Normal) Range: 5-15 CO2 33.0 [...] 7-18 GLU 101 mg/dL (Normal) Range: 70-110 10-Twx-310292:09 CBC W/Diff, Automated Comments: [facility] [address] [place], [place], [address] ; another doc Absolute Lymph 1.90 {X10_3/ul} [...] 4.2-5.4 WBC 6.6 K/mm3 (Normal) Range: 4.4-11.0 91-Xto-433943:09 Comprehensive Metabolic Profil Comments: [facility] [address] [place], [address] GAP 10 (Normal) Range: 5-15 CO2 25.0 [...] 126 mg/dLsuggests DIABETES MELLITUS per A.D.A. criteria. 63-Fsc-609365:09 Lipase Comments: [facility] [address] [place], [address] LIPASE 42 U/L (Abnormal) Range: 73-393 4-Czo-452939:19 Metabolic Panel, Comprehensive Comments: PATIENT NOT FASTINGPERFORMED BY: [facility] Urejdd1312 [facility] [id number] (39517) ALT (SGPT) 11 [iU]/L (Normal) Range: 0-32 [...] Glucose, Serum 108 mg/dL (Abnormal) Range: 65-99 9-Ber-382172:19 HGB A1C (67159) Comments: PATIENT NOT FASTINGPERFORMED BY: [employer] Urvwao2503 [facility] [id number] Hemoglobin A1c 5.9 % (Abnormal) Range: 4.8-5.6 Comments: . Pre-diabetes: 5.7 - 6.4 Diabetes: >6.4 Glycemic control for adults with diabetes: <7.0 :19 MAGNESIUM (18027) Comments: PATIENT NOT FASTINGPERFORMED BY: [employer] Ltqlwz0582 [facility] [id number] Magnesium, Serum 1.7 mg/dL (Normal) Range: 1.6-2.3 3-Pcn-034010:19 CBC, Platelets & Auto Diff Comments: PATIENT NOT FASTINGPERFORMED BY: [employer] Panbfy8368 [facility] [id number] (91967) Immature Grans (Abs) 0.0 {x10E3/uL} (Normal) Range: [...] 3.77-5.28 WBC 9.5 {x10E3/uL} (Normal) Range: 3.4-10.8 97-Fuy-294477:41 Comprehensive Metabolic Profil Comments: REDRAW. PREVIOUS SPECIMEN REJECTED DUE TOHEMOLYSIS. 04/28/17 1128 Aura Ch.[facility] [address] [place], [place], [address] GAP 6 (Normal) Range: 5-15 CO2 25.0 [...] 126 mg/dLsuggests DIABETES MELLITUS per A.D.A. criteria. 90-Kae-056136:05 Urinalysis, Complete Comments: Order Date: 04/28/17Has pt arrived? YHow was Urine Obtained? [facility]CIMENW[facility] Cgowqeguwf0847 [facility] [place], [address] AMORPHOUS 1+ (Normal) MUCUS, URINE [...] CLARITY Sl. Cloudy (Normal) COLOR Yellow (Normal) 38-Kev-368589:00 CBC W/Diff, Automated Comments: [facility] Yutsqoergd0470 [facility] [place], [address] Absolute Lymph 1.58 {X10_3/ul} (Normal) [...] 4.2-5.4 WBC 25.0 K/mm3 (Abnormal) Range: 4.4-11.0 94-Nhp-682452:00 Lactic Acid Comments: Yes/No query for Sepsis Lactate Rule [facility] [address] [place], [address] LACTIC ACID 1.6 mmol/L (Normal) Range: 0.4-2.0 37-Mib-317043:00 Partial Thromboplast Time Comments: [facility] [address] [place], [address] PTT 22.4 s (Abnormal) Range: 24.1-36.2 76-Hxm-345628:00 Prothrombin Time w/INR Comments: [facility] [address] [place], [address] INR 1.0 (Normal) PROTIME 12.8 s (Normal) Range: 11.7-14.9 :50 Miscellaneous Lab Procedure Comments: Comments: [id number]; URINE TOX; RUN LOWEST TEST IN LABCORPTest(s) Ordered: [id number]; URINE TOX; [facility] [address] [place], [address] [facility] Comments: [id number] 6+OXYCODONE-BUND (ng/mL)DRUG RESULT SCREEN CUTOFF____ Amphetamines,Urine Negat LAB (Normal) ananth ng/mL 1000Amphetamine test includes Amphetamine and Methamphetamine.Barbiturates Negative ng/mL 200Benzodiazepines Negative ng/mL 200Cannabinoid TEST Negative ng/mL 20Cocaine (Metab) Negative ng/mL 300Opiates Positive ng/mL 300 Opiates test includes Codeine, Morphine, Hydromorphone, [place] codone.Please Note:Confirmation performed by Mass SpectrometryCodeine Negative 300Morphine Positive Morphine Confirm >3000 ng/mL 300Hydromor phone Negative 300Hydrocodone Negative 300Oxycodone/Oxymorphone,Urine Negative ng/mL 300 Test includes Oxydodone and Oxymorphone. TESTING PERFORMED AT [facility]. ORIGINAL REPORT ON FILE IN LAB CONTAINS ADDITIONAL TEST SITE INFORMATION. :50 Urine Drug Screen (VISTA) Comments: Comments: [id number]; URINE TOX; RUN LOWEST TEST IN LABCORPList of Drugs Taken or Suspected? [facility] Iefevonlrc7[address] [place], [id number] THC NEGATIVE (Normal) PCP NEGATIVE (Normal) OPIATES [...] TESTING MUST BE ORDERED SEPARATELY. USE TESTMNEMONIC: [facility] :00 Basic Metabolic Profile (BMP) Comments: 'TROP' Serial specimen #1, #2, #3, or #4: [address] [place] [address] [address] [place], [address] GAP 10 (Normal) Range: 5-15 CO2 28.0 [...] A.D.A. criteria. :00 CBC W/Diff, Automated Comments: [facility] [address] [place], [place], [address] ; another doc Absolute Lymph 1.20 {X10_3/ul} [...] Serial specimen #1, #2, #3, or #4: [address] [place] [address] [address] [place], [place], [address] LIPASE 82 U/L (Normal) Range: 73-393 41-Xza-06937:00 Liver Profile Comments: 'TROP' Serial specimen #1, #2, #3, or #4: [address] [place] [address] [address] [place], [address] D BILI 0.12 mg/dL (Normal) Range: 0.00-0.30 T BILI 0.50 mg/dL (Normal) Range: 0.20-1.00 ALT 13 U/L (Normal) Range: 12-78 ALK P 58 U/L (Normal) Range: 45-117 AST 6 U/L (Abnormal) Range: 15-37 GLOB 3.4 g/dL (Normal) Range: 2.3-3.5 ALB 3.7 g/dL (Normal) Range: 3.4-5.0 T PROT 7.1 g/dL (Normal) Range: 6.4-8.2 36-Oht-11664:00 Troponin-I Comments: 'TROP' Serial specimen #1, #2, #3, or #4: [address] [place] [address] [address] [place], [address] TROPONIN-I < 0.02 ng/mL (Normal) Comments: TROPONIN-I EXPECTED VALUES <0.05 NEGATIVE 0.06 - 0.59 AT RISK OF DE > OR = 0.60 SUGGEST DE 06-Gmv-280235:01 Renal Profile Comments: Order Date: 01/17/17Order Info: [id number] - RENALOrder Info: [id number] - MGOrder Date: 01/17/17Order Info: [id number] - [facility] [address] [place], [phone] CO2 31.0 mmol/L (Normal) Range: 21.0-32.0 CL [...] 7-18 GLU 102 mg/dL (Normal) Range: 70-110 58-Tuw-214491:01 MAGNESIUM (60355) Comments: Order Date: 01/17/17Order Info: [id number] - RENALOrder Info: [id number] - MGOrder Date: 01/17/17Order Info: [id number] - [facility] [address] [place], [phone] MG 1.5 mg/dL (Abnormal) Range: 1.8-2.4 Comments: Moderate Hemolysis, Result may be falsely increased. 63-Kqi-290567:25 CBC W/Diff, Automated Comments: [facility] [address] [place], [address] Absolute Lymph 1.62 {X10_3/ul} (Normal) Range: 0.83-4.51 [...] 4.2-5.4 WBC 10.3 K/mm3 (Normal) Range: 4.4-11.0 68-Zpg-311594:25 Comprehensive Metabolic Profil Comments: 'TROP' Serial specimen #1, #2, #3, or #4: 1[facility] [address] [place], [address] GAP 10 (Normal) Range: 5-15 CO2 29.0 [...] <126 mg/dLsuggests IMPAIRED HOMEOSTASIS per A.D.A. criteria. 28-Nrf-924866:25 Lipase Comments: 'TROP' Serial specimen #1, #2, #3, or #4: [address] [place] [address] [place], [address] LIPASE 52 U/L (Abnormal) Range: 73-393 53-Nhq-723612:25 Partial Thromboplast Time Comments: [facility] [address] [place], [address] PTT 32.0 s (Normal) Range: 24.1-36.2 95-Gqi-718357:25 Prothrombin Time w/INR Comments: [facility] [address] [place], [address] INR 1.0 (Normal) PROTIME 13.1 s (Normal) Range: 11.7-14.9 09-Omb-788413:25 Troponin-I Comments: 'TROP' Serial specimen #1, #2, #3, or #4: [address] [place] [address] [place], [address] TROPONIN-I 0.93 ng/mL (Abnormal) Comments: Critical Result(s) Called INDRA Tyson at: 12:03:5604 by: JAYDA CRAIG TROPONIN-I EXPECTED VALUES <0.05 NEGATIVE 0.06 - 0.59 AT RISK OF DE > OR = 0.60 SUGGEST DE 42-Arr-611512:40 Urinalysis, Complete Comments: How was Urine Obtained? DRY CLEANING CHECKER TO SPECIFYThe [facility] Hospital [address] [place], [address] MUCUS, URINE 0 SEEN {/hpf} [...] CLARITY Sl. Cloudy (Normal) COLOR Yellow (Normal) 42-Dpn-122412:09 CBC W/Diff, Automated Comments: [facility] [address]gi[address] [facility] [place], [place], [address] Absolute Lymph 1.33 {X10_3/ul} (Normal) Range: 0.83-4.51 [...] 4.2-5.4 WBC 5.7 K/mm3 (Normal) Range: 4.4-11.0 61-Avv-190532:09 Comprehensive Metabolic Profil Comments: 'TROP' Serial specimen #1, #2, #3, or #4: [address] [place] [address] [address] [place], [place], [address] GAP 8 (Normal) Range: 5-15 CO2 33.0 [...] <126 mg/dLsuggests IMPAIRED HOMEOSTASIS per A.D.A. criteria. 34-Bgc-187236:09 Lactic Acid Comments: [facility] [address] [place], [address] LACTIC ACID 1.5 mmol/L (Normal) Range: 0.4-2.0 :09 Lipase Comments: 'TROP' Serial specimen #1, #2, #3, or #4: [address] [place] [address] [place], [address] LIPASE 40 U/L (Abnormal) Range: 73-393 :09 Partial Thromboplast Time Comments: [facility] [address] [place], [address] PTT 38.3 s (Abnormal) Range: 24.1-36.2 :09 Prothrombin Time w/INR Comments: [facility] [address] [place], [address] INR 1.3 (Normal) PROTIME 15.8 s (Abnormal) Range: 11.7-14.9 :09 Troponin-I Comments: 'TROP' Serial specimen #1, #2, #3, or #4: [address] [place] [address] [place], [address] TROPONIN-I < 0.02 ng/mL (Normal) Comments: TROPONIN-I EXPECTED VALUES <0.05 NEGATIVE 0.06 - 0.59 AT RISK OF DE > OR = 0.60 SUGGEST DE 54-Dko-122430:52 Potassium Comments: [facility] [address] [place], [address](111 K 3.4 mmol/L (Abnormal) Range: 3.5-5.1 92-Obw-05322:10 Basic Metabolic Profile (BMP) Comments: DR AVINA ORDERED: BMP, CBC, MRSADR.SANJAY ORDERED: [facility] Vx[address]jdxzaq0056 [facility] [place], [address] GAP 12 (Normal) Range: 5-15 CO2 27.0 mmol/L (Normal) Range: 21.0-32.0 CL 99 mmol/L (Normal) Range: 98-107 K 2.7 mmol/L (Abnormal) Range: 3.5-5.1 Comments: Critical Result(s) Called at: 10:30:38 11/14/2016 by:Aura Ch to [facility] NA 138 mmol/L (Normal) Range: 136-145 [...] 126 mg/dLsuggests DIABETES MELLITUS per A.D.A. criteria. 23-Uwe-32186:10 CBC-Complete Blood Cnt No Diff Comments: DR AVINA ORDERED: BMP, CBC, ITA.SANJAY ORDERED: ESTEBAN AVINA ORDERED: BMP, CBC, MRSADR.SANJAY ORDERED: [facility] [address] [place], [place], [address] MPV 10.8 fL (Normal) Range: 6.2-12.0 PLT [...] (Normal) Range: 4.4-11.0 :10 MRSA/SAID SCREEN Comments: [facility] [address] [place], [place], [address] ; another doc MRSA+SAID SCRN See Note (Normal) Comments: DR AVINA ORDERED: BMP, CBC, MRSA ORDERED: K MRSA/SAID SCRNS. AUREUS S. aureus NegativeMRSA MRSA Negative :09 MAGNESIUM (36814) Comments: PATIENT NOT FASTINGPERFORMED BY: [facility]Isncyy6714 [facility] [id number] Magnesium, Serum 1.7 mg/dL (Normal) Range: 1.6-2.3 90-Edo-017771:09 Metabolic Panel, Basic Comments: PATIENT NOT FASTINGPERFORMED BY: [facility]Yhsajw3406 [facility] [id number] ([id number]) Calcium, Serum 8.7 mg/dL (Normal) Range: 8.7-10.3 [...] Glucose, Serum 97 mg/dL (Normal) Range: 65-99 63-Zed-999483:45 Urinalysis, Complete Comments: How was Urine Obtained? DRY CLEANING CHECKER TO [facility] [address]wmkhe[address] [place], [address] MUCUS, URINE RARE {/hpf} (Normal) BACTERIA RARE [...] (Normal) CLARITY Cloudy (Normal) COLOR Yellow (Normal) 65-Xpg-026070:53 CBC W/Diff, Automated Comments: [facility] [address] [place], [place], [address] Absolute Lymph 1.08 {X10_3/ul} (Normal) Range: 0.83-4.51 [...] 4.2-5.4 WBC 6.1 K/mm3 (Normal) Range: 4.4-11.0 30-Bab-971154:53 Comprehensive Metabolic Profil Comments: [facility] [address] [place], [place], [address] GAP 12 (Normal) Range: 5-15 CO2 27.0 [...] per A.D.A. criteria. :53 Lactic Acid Comments: [facility] [address] [place], [place], [address] LACTIC ACID 2.2 mmol/L (Abnormal) Range: 0.4-2.0 :53 Partial Thromboplast Time Comments: [facility] [address] [place], [address] PTT 32.1 s (Normal) Range: 24.1-36.2 :53 Prothrombin Time w/INR Comments: [facility] [address] [place], [place], [address] INR 1.0 (Normal) PROTIME 13.2 s (Normal) Range: 11.7-14.9 :54 Basic Metabolic Profile (BMP) Comments: [facility] [address] [place], [place], [address] GAP 10 (Normal) Range: 5-15 CO2 29.0 [...] :54 CBC-Complete Blood Cnt No Diff Comments: [facility] [address] [place], [address] MPV 10.1 fL (Normal) Range: 6.2-12.0 PLT [...] (Normal) Range: 4.4-11.0 :54 Hemoglobin A1c Comments: [facility] [address] [place], [address] HGB A1C 6.4 % (Abnormal) Range: 4.2-6.3 :54 Liver Profile Comments: [facility] [address] [place], [address] D BILI 0.27 mg/dL (Normal) Range: 0.00-0.30 T BILI 0.80 mg/dL (Normal) Range: 0.20-1.00 ALT 12 U/L (Normal) Range: 12-78 ALK P 82 U/L (Normal) Range: 45-117 AST 10 U/L (Abnormal) Range: 15-37 GLOB 3.5 g/dL (Normal) Range: 2.3-3.5 ALB 3.2 g/dL (Abnormal) Range: 3.4-5.0 T PROT 6.7 g/dL (Normal) Range: 6.4-8.2 :54 MRSA/SAID SCREEN Comments: [facility] [address] [place], [place], [address] MRSA+SAID SCRN See Note (Normal) Comments: MRSA/SAID SCRNS. AUREUS S. aureus NegativeMRSA MRSA Negative :54 Partial Thromboplast Time Comments: [facility] [address] [place], [place], [address] PTT 40.7 s (Abnormal) Range: 24.1-36.2 :54 Prothrombin Time w/INR Comments: [address] [place], [place], [address] INR 1.1 (Normal) PROTIME 14.3 s (Normal) Range: 11.7-14.9 :55 CBC W/Diff, Automated Comments: [address] [place], [address] Absolute Lymph 1.18 {X10_3/ul} (Normal) [...] 4.2-5.4 WBC 13.8 K/mm3 (Abnormal) Range: 4.4-11.0 31-Dyw-51499:55 Comprehensive Metabolic Profil Comments: [facility] [address] [place], [place], [address] GAP 12 (Normal) Range: 5-15 CO2 24.0 [...] 200 mg/dLsuggests DIABETES MELLITUS per A.D.A. criteria. 78-Xff-823439:22 MAGNESIUM (70760) Comments: PATIENT NOT FASTINGPERFORMED BY: [employer]70 [facility] [id number] Magnesium, Serum 1.5 mg/dL (Abnormal) Range: 1.6-2.3 :22 POTASSIUM SERUM (66519) Comments: PATIENT NOT FASTINGPERFORMED BY: [employer]70 [facility] [id number] Potassium, Serum 4.0 mmol/L (Normal) Range: 3.5-5.2 67-Mqq-938329:13 Rapid Flu (36738 x 2) Influenza A Ag negative (Normal) 51-Pjk-332412:42 VITAMIN B12 AND FOLATES Comments: PATIENT NOT FASTINGPERFORMED BY: Referron6370 [facility] [id number] (49114) Folate (Folic Acid), Serum 18.3 ng/mL (Normal) Comments: A serum folate concentration of less than 3.1 ng/mL isconsidered to represent clinical deficiency. Vitamin B12 650 pg/mL (Normal) Range: 211-946 :42 TSH (78664) Comments: PATIENT NOT FASTINGPERFORMED BY: [employer]70 [facility] [id number] TSH 1.610 {uIU/mL} (Normal) Range: 0.450-4.500 :42 Metabolic Panel, Comprehensive Comments: PATIENT NOT FASTINGPERFORMED BY: [employer]70 [facility] [id number] (66115) ALT (SGPT) 9 [iU]/L (Normal) Range: 0-32 [...] (Normal) Range: 65-99 :26 HgA1C , Office (58593) HgA1C , Office 6.8 % (Normal) Range: 4.6 - 7.1 :26 Blood Glucose , Office (42273) Blood Glucose , Office 110 (Normal) :10 Culture, Body Fluid Comments: [facility] [address] [place], [place], [address] ; Another doc CUBF See Note (Normal) [...] Fluid RBC, WBC AND Comments: LEFT KNEELEFT KNEEWSelect [facility] [address]zqzdb[address] [place], [address] ; another doc Diff PATH [...] (Normal) :30 Crystals, Body Fluid Comments: LEFT [facility] G[address]ljmp5702 [facility] [place], [address] PATH REV Reviewed (Normal) SOURCE/BF SYNOVIAL (Normal) CRYSTALS/BF SEE PATH REV (Normal) :30 Culture, Body Fluid Comments: [facility] [id number] [place], [address] CUBF See Note (Normal) Comments: List Antibiotics Last 48 Hours? UNKList Antibiotics to be Started? UNKComments: LEFT KNEEGram StainCentrifuged Specimen? Culture performed on centrifuged specimen Gram Stain 2+ Red Blood Donya ls No White Blood Cells No organisms seen Body Fluid CultNO GROWTH IN 14 DAYS Cult, AnaerobicNo growth in 5 days. :48 CBC W/Diff, Automated Comments: [facility] [id number] [place], [address] Absolute Lymph 2.23 {X10_3/ul} (Normal) [...] 4.2-5.4 WBC 7.0 K/mm3 (Normal) Range: 4.4-11.0 [id number] Comprehensive Metabolic Profil Comments: [facility] [id number] [place], [place], [id number] GAP 10 (Normal) Range: 5-15 CO2 29.0 [...] 7-18 GLU 99 mg/dL (Normal) Range: 70-110 [id number] Comprehensive Metabolic Profil Comments: [facility] [id number] [place], [place], [id number] GAP 8 (Normal) Range: 5-15 CO2 31.0 [...] <126 mg/dLsuggests IMPAIRED HOMEOSTASIS per A.D.A. criteria. [id number] Culture, Urine Comments: [facility] [id number] [place], [place], [id number] CUUR See Note (Normal) Comments: Urine CultureORGANISM [...] $ <=20 S(NF) indicates non-formulary drug at [facility]. Approval by Infectious Disease Specialist required before non- formulary drugs may be ordered and/or dispensed. [id number] Urinalysis, Complete Comments: How was Urine Obtained? CLEAN [facility] [id number] [place], [address] MUCUS, URINE 0 SEEN {/hpf} [...] (Normal) COLOR Yellow (Normal) :56 POTASSIUM SERUM ([id number]) Comments: PATIENT NOT FASTINGPERFORMED BY: KiteDesk70 [facility] [id number] Potassium, Serum 4.4 mmol/L (Normal) Range: 3.5-5.2 :56 MAGNESIUM (20737) Comments: PATIENT NOT FASTINGPERFORMED BY: HistoRx70 [facility] CenterR.A. Burch ConstructionHaywood Regional Medical Center [id number] Magnesium, Serum 1.5 mg/dL (Abnormal) Range: 1.6-2.3 :29 CBC WITH MANUAL DIFF Comments: PATIENT WAS FASTINGPERFORMED BY: KiteDesk70 [facility] [id number] Information: [id number] (80420) Immature Grans (Abs) 0.0 {x10E3/uL} (Normal) Range: [...] 3.77-5.28 WBC 5.8 {x10E3/uL} (Normal) Range: 3.4-10.8 5-Uzq-733689:15 CBC, Platelets & Auto Diff Comments: PATIENT NOT FASTINGPERFORMED BY: [facility]Ptwrdp2019 [facility] [id number] (28502) Immature Grans (Abs) 0.0 {x10E3/uL} (Normal) Range: [...] Panel, Comprehensive Comments: PATIENT NOT FASTINGPERFORMED BY: [facility]Xrwiqt2979 [facility] [id number] (57154) ALT (SGPT) 14 [iU]/L (Normal) Range: 0-32 [...] Glucose, Serum 98 mg/dL (Normal) Range: 65-99 96-Lwp-484948:28 Metabolic Panel, Comments: PATIENT WAS FASTINGPERFORMED BY: CLARITA [facility])Gsvqsc0232 [facility] [id number] Information: [id number] [facility] (36787) ALT (SGPT) 13 [iU]/L (Normal) Range: 0-32 [...] Glucose, Serum 110 mg/dL (Abnormal) Range: 65-99 4-Vmn-691627:54 Urinalysis, Office (11912) UA - LEUKOCYTE ESTERASE Trace (Normal) UA - NITRITE Negative (Normal) URINE UROBILINGN JEWELS TIMED Normal mg/dL (Normal) UA - PROTEIN Negative mg/dL (Normal) UA - PH 6 (Abnormal) UA - BLOOD Negative (Normal) UA - SPECIFIC GRAVITY 1.015 (Normal) UA - KETONES Moderate mg/dL (Normal) UA - BILIRUBIN Negative (Normal) UA - GLUCOSE Negative (Normal) 32-Btx-763519:21 Basic Metabolic Profile (BMP) Comments: [facility] [address]th[address] [place], [place], [address] GAP 9 (Normal) Range: 5-15 CO2 27.0 [...] 200 mg/dLsuggests DIABETES MELLITUS per A.D.A. criteria. 05-Sws-717804:21 CBC W/Diff, Automated Comments: [facility] [address] [place], [place], [address] Absolute Lymph 3.53 {X10_3/ul} (Normal) Range: 0.83-4.51 [...] 4.2-5.4 WBC 13.8 K/mm3 (Abnormal) Range: 4.4-11.0 68-Tzy-248188:21 Urinalysis, Complete Comments: Order Date: 04/25/16How was Urine Obtained? [facility] Siwrecxosh2955 [facility] [place], [address] MUCUS, URINE 0 SEEN {/hpf} [...] (Normal) CLARITY Cloudy (Normal) COLOR Yellow (Normal) 74-Jiy-005092:20 Lactic Acid Comments: [facility] Sfycjrmlol9216 [facility] [place], [address] LACTIC ACID 4.8 mmol/L (Abnormal) Range: 0.4-2.0 Comments: Critical Result(s) Called at: 19:26:18 04/25/2016 by:Tiffany Oliva RN 01-Gfh-81183:32 CBC W/Diff, Automated Comments: [facility] Rpoziiyune[address] [place], [address] Absolute Lymph 1.94 {X10_3/ul} (Normal) Range: 0.83-4.51 [...] 4.2-5.4 WBC 6.3 K/mm3 (Normal) Range: 4.4-11.0 67-Ihw-45159:32 Comprehensive Metabolic Profil Comments: [facility] Btyxhqbfnl32[address] [place], [address] GAP 9 (Normal) Range: 5-15 CO2 26.0 [...] 126 mg/dLsuggests DIABETES MELLITUS per A.D.A. criteria. 32-Tbw-484441:01 CBC W/Diff, Automated Comments: [facility] Atksskmgrd18[address] [place], [place], [address] Absolute Lymph 2.12 {X10_3/ul} (Normal) Range: 0.83-4.51 [...] 4.2-5.4 WBC 9.9 K/mm3 (Normal) Range: 4.4-11.0 10-Jko-578969:01 CRP Comments: [facility] Fwhjxckvjz3420 [facility]. [place], [place], [id number] C-REACTIVE PROT < 2.90 mg/L (Normal) Range: 0.0-3.0 Comments: C-Reactive Protein (CRP) provides useful information for thediagnosis, therapy and monitoring of inflammatory processesand associated diseases. For the evaluation of Relative Riskfor Cardiovascular Dise ase, a High Sensitivity CRP (HSCRP)should be ordered. 11-Nlg-153514:01 Erythrocyte Sed Rate Comments: [facility] Extosebpwi5621 [facility] [place], [address] SED RATE 10 mm/h (Normal) Range: 0-30 14-Esk-322706:13 CK-MB Quantitative and Index Comments: 'TROP' Serial specimen #1, #2, #3, or #4: 1'CKMB' Serial Specimen #1, #2 or #3? 1[facility] X[address]egefum[address] [place], [address] CKRI 1.5 % (Abnormal) Range: 0.0-1.4 Comments: RELATIVE INDEX >1.5% IS PRESUMPTIVELY POSITIVE CPKMB 1.0 ng/mL (Normal) Range: 0.0-5.0 Comments: CK-MB and RI Interpretation MB Relative Index Non-AMI <or= 5 NA Indeterminate > 5 <or= 4 AMI > 5 > 4 CPK TOTAL 65 U/L (Normal) Range: 26-192 55-Oic-485647:13 Myoglobin, Serum Comments: [facility] (refer to report for specific site)refer to report for address and phone number Myoglobin, Ser 42 ng/mL (Normal) Range: 25-58 Comments: Performed at: [address] [id number] Director: Edil Robertson PhD, Phone: [phone] 41-Ibt-063238:13 Troponin-I Comments: 'TROP' Serial specimen #1, #2, #3, or #4: 1'CKMB' Serial Specimen #1, #2 or #3? [address] [place] [address] [address] [place], [address] TROPONIN-I < 0.02 ng/mL (Normal) Comments: TROPONIN-I EXPECTED VALUES <0.05 NEGATIVE 0.06 - 0.59 AT RISK OF DE > OR = 0.60 SUGGEST DE 07-Bhw-504326:19 URINE HANSA CULTURE-JEWELS COL Comments: PATIENT NOT FASTINGPERFORMED BY: LabCo[address] [id number] Information: SRC:[employer] [id number] COUNT (21956) Antimicrobial MIHEAD (Normal) Comments: S = Susceptible; [...] mL (Abnormal) Urine Final report Culture,Comprehensive (Abnormal) 41-Gnu-892278:54 Urinalysis, Office (80273) UA - LEUKOCYTE ESTERASE Small (Normal) UA - NITRITE Positive (Normal) URINE UROBILINGN JEWELS TIMED Normal mg/dL (Normal) UA - PROTEIN Trace mg/dL (Normal) UA - PH 7 (Normal) UA - BLOOD Negative (Normal) UA - SPECIFIC GRAVITY 1.025 (Normal) UA - KETONES Small mg/dL (Normal) UA - BILIRUBIN Small (Normal) UA - GLUCOSE Negative (Normal) 23-Wwn-751128:38 Blood Glucose , Office (44697) Blood Glucose , Office 85 (Normal) :38 Basic Metabolic Profile (BMP) Comments: Is Patient Taking Vitamins or Folic Acid Supplements? [facility] Bwncjrfton3162 [facility]. [place], [place], [address] GAP 9 (Normal) Range: 5-15 CO2 28.0 [...] Taking Vitamins or Folic Acid Supplements? [facility] Slojiqbbge264[address] [place], [address] FOLATES 13.40 ng/mL (Normal) Range: 3.1-17.5 :38 Vitamin B12 723 pg/mL (Normal) Comments: [facility] Y[address]pzoetf[address] [place], [address] Range: 211-911 :32 CBC W/Diff, Automated Comments: [facility] Gzelxwqxif5[address] [place], [id number] ; ordered by Dr. Colmenares Absolute Lymph [...] Range: 4.4-11.0 :32 Comprehensive Metabolic Profil Comments: [facility] Xshdjlmqxo3087 [place], [address] GAP 5 (Normal) Range: 5-15 CO2 31.0 [...] mg/dL (Normal) Range: 70-110 :03 LIPID PANEL (61827) Comments: PATIENT WAS FASTINGPERFORMED BY: CB [facility] Ugwmhd7748 [facility] [id number] BY: BN [facility] [address] [id number] LDL/HDL Ratio 3.2 {ratio_units} (Normal) Range: 0.0-3.2 [...] 1, 25-DIHYDROXY Comments: PATIENT WAS FASTINGPERFORMED BY: [employer] [facility] [id number] BY: [employer] [id number] (46964) Calcitriol(1,25 di-OH Vit D) 51.7 pg/mL (Normal) Range: 19.9-79.3 :03 MICROALBUMIN: CREATININE Comments: PATIENT WAS FASTINGPERFORMED BY: [employer] [facility] [id number] BY: [employer] [id number] RATIO (11287) AND (91055) Microalb/Creat Ratio 35.5 {mg/g_creat} (Abnormal) Range: 0.0-30.0 Microalbumin, Urine 42.6 ug/mL (Abnormal) Range: 0.0-17.0 Creatinine, Urine 120.0 mg/dL (Normal) Range: 15.0-278.0 :03 METABOLIC PANEL, Comments: PATIENT WAS FASTINGPERFORMED BY: [employer] [facility] [id number] BY: [employer] [id number] COMPREHENSIVE (07224) ALT (SGPT) 14 [iU]/L (Normal) Range: 0-32 [...] Glucose, Serum 137 mg/dL (Abnormal) Range: 65-99 90-Ezf-31156:03 CBC, PLATELETS & AUT DIFF Comments: PATIENT WAS FASTINGPERFORMED BY: CB [facility] Wvlhnq3879 [facility] [id number] BY: [facility] [address] [id number] Information: [id number] (46692) Immature Grans (Abs) 0.0 {x10E3/uL} (Normal) Range: [...] (THYROID STIMULATING Comments: PATIENT WAS FASTINGPERFORMED BY: [employer] [facility] [id number] BY: [address] [id number] HORMONE) (83399) TSH 3.840 {uIU/mL} (Normal) Range: 0.450-4.500 :03 VITAMIN B12 AND FOLATES Comments: PATIENT WAS FASTINGPERFORMED BY: [facility] TechnologyJefferson [facility])Bcpwuz0673 [facility] [id number] BY: [address] [id number] (58025) Folate (Folic Acid), Serum 14.3 ng/mL (Normal) Comments: A serum folate concentration of less than 3.1 ng/mL isconsidered to represent clinical deficiency. Vitamin B12 742 pg/mL (Normal) Range: 211-946 :56 HgA1C , Office (99945) HgA1C , Office 6.8 % (Normal) Range: 4.6 - 7.1 :56 Blood Glucose , Office (68194) Blood Glucose , Office 128 (Normal) :36 CBC W/Diff, Automated Comments: [facility] [address]qlsamwli[address] [place], [place], [address] Absolute Lymph 2.25 {X10_3/ul} (Normal) Range: 0.83-4.51 [...] Range: 4.4-11.0 :36 Comprehensive Metabolic Profil Comments: [facility] [address]zparsxei[address] [place], [place], [address] GAP 8 (Normal) Range: 5-15 CO2 28.0 [...] 126 mg/dLsuggests DIABETES MELLITUS per A.D.A. criteria. 0-Scx-607924:12 ANTINUCLEAR ANTIBODIES DIRECT Comments: [facility] (refer to report for specific site)refer to report for address and phone number EVERTON-DIRECT Negative (Normal) Comments: Performed at: [facility] Lab[address], [place] [id number] Director: Edil Robertson PhD, Phone: [phone] 4-Msc-111374:12 CBC W/Diff, Automated Comments: [facility] [address]hlzh[address] [place], [place], [address] Absolute Lymph 1.93 {X10_3/ul} (Normal) Range: 0.83-4.51 [...] 4.2-5.4 WBC 6.4 K/mm3 (Normal) Range: 4.4-11.0 8-Ljb-877656:12 CCP IgG Antibodies Comments: [facility] (refer to report for specific site)refer to report for address and phone number ANTI-CCP [id number] 4 {units} (Normal) Range: 0-19 Comments: Negative <20 Weak positive 20 - 39 Moderate positive 40 - 59 Strong positive >59 7-Ago-054299:12 Comprehensive Metabolic Profil Comments: [facility] Bbdkgohohv[address] [place], [place], [address] GAP 6 (Normal) Range: 5-15 CO2 33.0 [...] 7-18 GLU 95 mg/dL (Normal) Range: 70-110 7-Uxc-661141:12 Hep B Surface Antibodies Comments: [facility] (refer to report for specific site)refer to report for address and phone number Hep B Loi AB Reactive (Normal) Comments: Non Reactive: Inconsistent with immunity, less than 10 mIU/mL Reactive: Consistent with immunity, greater than 9.9 mIU/mL 4-Wkx-874600:12 Hepatitis B Surface Ag Comments: [facility] (refer to report for specific site)refer to report for address and phone number HB SURF AG Negative (Normal) :12 Hepatitis B Core AB IgM Comments: [facility] (refer to report for specific site)refer to report for address and phone number HB CORE [id number] Negative (Normal) Comments: Performed at: - [facility] [id number] Director: Edil Robertson PhD, Phone: [phone] at: - Lab[address] [id number] Director: Jared Rodriguez PhD, Phone: [phone] at: - Lab[address] [id number] Director: Dylan Matthews MD, Phone: [phone] :12 Hepatitis C Antibodies Comments: [facility] (refer to [...] a more specific supplemental or PCR testing. [facility] offers HCV Ab w/Reflex to Verification test #[id number]. :12 HLA B27 Negative (Normal) Comments: [facility] (refer to report for specific site)refer to report for address and phone number Comments: HLA-B*27 NegativeHLA allele interpretation for all loci based on IMGT/HLAdatabase version 3.15A Lab CLIA ID Number [id number] test was performed using PCR (Polymerase ChainReaction)/SSOP (Sequence Specific Oligonucleotide Probes)technique. SBT (Sequence Based Typing) and/or SSP(Sequence Specific Primers) may be used as supplementalmethods when necessary. Please contact HLA CustomerService at [phone] if you have any questions. Director of HLA Laboratory Dr Jared Rodriguez, PhD :12 Rheumatoid Factor Comments: [facility] [address]zzg[address] [place], [address] RHEUMATOID FAC < 10.0 {IU/mL} (Normal) 3-Nor-720441:12 Vitamin D,25 Hydroxy Comments: [facility] Wkkmzuxdhe1472 [place], [address] Vitamin D 25-OH 50.9 ng/mL (Normal) Comments: Vitamin D 25(OH) Status Range Deficiency <20 ng/mL (50nmol/L) Insuffciency 20 - 30 ng/mL (50 - 75 nmol/L) Sufficiency 30 - 100 ng/mL (75 - 250 nmol/L) Toxicity >100 ng/mL (>250 nmol/L) 33-Xpl-28991:37 LIPID PANEL (73012) Comments: PATIENT WAS FASTINGPERFORMED BY: [facility] Aawzoq8913 [facility] [id number] LDL/HDL Ratio 2.8 {ratio_units} (Normal) Range: 0.0-3.2 [...] - 169 >19 years 100 - 199 41-Vvi-68852:37 CBC, PLATELETS & AUT DIFF Comments: PATIENT WAS FASTINGPERFORMED BY: [facility]Ihmzsc1472 [facility] [id number] Information: [id number] (67253) Immature Grans (Abs) 0.0 {x10E3/uL} (Normal) Range: [...] B-12 (CYANOCOBALAMIN) Comments: PATIENT WAS FASTINGPERFORMED BY: [facility]6370 [facility] [id number] (86340) Vitamin B12 871 pg/mL (Normal) Range: 211-946 :37 Vitamin D Hydroxy (23187) Comments: PATIENT WAS FASTINGPERFORMED BY: Cnano TechnologyJefferson Washington [facility] Hospital [facility])Bmveza3548 [facility] [id number] Vitamin D, 25-Hydroxy 69.6 ng/mL (Normal) Range: 30.0-100.0 Comments: Vitamin D deficiency has been defined by the [place] ofMedicine and an Endocrine Society practice guideline as alevel of serum 25-OH vitamin D less than 20 ng/mL (1,2).The Endocrine Society went on to further define vitamin Dinsufficiency as a level between 21 and 29 ng/mL (2).1. IOM ([place]rill of Medicine). 2010. Dietary reference intakes for calcium and D. [place]: The National Academies Press.2. Delma MF, Mckenna ABDALLA, Dane MACKENZIE, et al. Evaluation, treatment, and prevention of vitamin D deficiency: an Endocrine Society clinical practice guideline. JCEM. 2010; 96(7):1911-30. 03-Pfj-71125:37 METABOLIC PANEL, COMPREHENSIVE Comments: PATIENT WAS FASTINGPERFORMED BY: Cnano TechnologyJefferson Washington [facility] Hospital [facility])Kfgfis0139 [facility] [id number]; apt. 07-01-15 (70946) ALT (SGPT) 10 [iU]/L (Normal) Range: 0-32 [...] (Abnormal) Range: 65-99 :02 HgA1C , Office (63686) HgA1C , Office 7.1 % (Normal) Range: 4.6 - 7.1 49-Int-601405:24 EBV Panel (37099) Comments: PATIENT NOT FASTINGPERFORMED BY: Cnano TechnologyJefferson Washington [facility] Hospital [facility])Quvbci7238 [facility] [id number] Interpretation: SPRCS (Normal) Comments: EBV Interpretation Chart [...] DIFF WBC Comments: PATIENT NOT FASTINGPERFORMED BY: [facility]6370 [facility] [id number] Information: [id number] (21014) Immature Grans (Abs) 0.0 {x10E3/uL} (Normal) Range: [...] 3.77-5.28 WBC 6.7 {x10E3/uL} (Normal) Range: 3.4-10.8 20-Kec-598260:37 HANSA CULTURE-OTHER (81454) Comments: PATIENT NOT FASTINGPERFORMED BY: [facility])Pizwem6699 [facility] [id number] Information: SRC:AIDAN [id number] Result 1 RRF (Normal) Comments: Routine respiratory vicente Upper Respiratory Culture Final report (Normal) 86-Jvt-105897:30 Rapid Strep Test, Office (87596) Rapid Strep Test, Office Negative (Normal) 06-Feb-20159:15 CBC, Platelet, No Differential Comments: PATIENT WAS FASTINGPERFORMED BY: [facility]6370 [facility] [id number] Platelets 245 {x10E3/uL} (Normal) Range: 150-379 RDW 13.9 % (Normal) Range: 12.3-15.4 MCHC 33.6 g/dL (Normal) Range: 31.5-35.7 MCH 31.4 pg (Normal) Range: 26.6-33.0 MCV 93 fL (Normal) Range: 79-97 Hematocrit 39.9 % (Normal) Range: 34.0-46.6 Hemoglobin 13.4 g/dL (Normal) Range: 11.1-15.9 RBC 4.27 {x10E6/uL} (Normal) Range: 3.77-5.28 WBC 4.9 {x10E3/uL} (Normal) Range: 3.4-10.8 :15 Comp. Metabolic Panel (14) Comments: PATIENT WAS FASTINGPERFORMED BY: [facility]6370 [facility] [id number] Information: [id number] ALT (SGPT) 8 [iU]/L (Normal) Range: 0-32 [...] With LDL/HDL Comments: PATIENT WAS FASTINGPERFORMED BY: [employer]70 [facility]agearD[facility] [id number] Ratio LDL/HDL Ratio 3.7 {ratio_units} Range: 0.0-3.2 [...] pg/mL (Normal) Comments: PATIENT WAS FASTINGPERFORMED BY: Zimory Ejlwas4197 [facility] [id number] :15 Range: 211-946 Vitamin D, 25-Hydroxy 56.4 ng/mL (Normal) Comments: PATIENT WAS FASTINGPERFORMED BY: Zimory Neljco8295 [facility] [id number] :15 Range: 30.0-100.0 Comments: Vitamin D deficiency has been defined by the [place] ofMedicine and an Endocrine Society practice guideline as alevel of serum 25-OH vitamin D less than 20 ng/mL (1,2).The Endocrine Society went on to further define vitamin Dinsufficiency as a level between 21 and 29 ng/mL (2).1. IOM ([place]rill of Medicine). 2010. Dietary reference intakes for calcium and D. [place]: The National Academies Press.2. Mckenna Christie, Dane MACKENZIE et al. Evaluation, treatment, and prevention of vitamin D deficiency: an Endocrine Society clinical practice guideline. JCEM. 2010; 96(7):1911-30. :33 HgA1C , Office (24605) HgA1C , Office 6.4 % (Normal) Range: 4.6 - 7.1 :27 Potassium Comments: Test performed at:[facility] Krzigojfcn35[address] [place] [address] K 3.5 mmol/L (Normal) Range: 3.5-5.1 :59 Vitamin D Hydroxy (74941) Comments: PATIENT NOT FASTINGPERFORMED BY: [employer] [place] [id number] Vitamin D, 25-Hydroxy 40.6 ng/mL (Normal) Range: 30.0-100.0 Comments: Vitamin D deficiency has been defined by the Morrill ofVan Wert County Hospitalcine and an Endocrine Society practice guideline as alevel of serum 25-OH vitamin D less than 20 ng/mL (1,2).The Endocrine Society went on to further define vitamin Dinsufficiency as a level between 21 and 29 ng/mL (2).1. IOM ([place]rill of Medicine). 2010. Dietary reference intakes for calcium and D. [place]: The National Academies Press.2. Mckenna Christie, Dane MACKENZIE, et al. Evaluation, treatment, and prevention of vitamin D deficiency: an Endocrine Society clinical practice guideline. JCEM. 2010; 96(7):191-. :59 T4, FREE (THYROXINE) Comments: PATIENT NOT FASTINGPERFORMED BY: [employer] Qigxsf5864 [place] [id number] Information: [id number] (58552) T4,Free(Direct) 1.22 ng/dL (Normal) Range: 0.82-1.77 :59 T3, FREE (TRIDOTHYRONINE) (64032) Comments: PATIENT NOT FASTINGPERFORMED BY: [facility] Zpaoju6551 [facility] [id number] Triiodothyronine,Free,Serum 3.2 pg/mL (Normal) Range: 2.0-4.4 :59 TSH (88434) Comments: PATIENT NOT FASTINGPERFORMED BY: [facility] Gmzjtw[address] [facility] [id number] TSH 2.460 {uIU/mL} (Normal) Range: 0.450-4.500 :59 SED RATE ERYTHROCYTE (10850) Comments: PATIENT NOT FASTINGPERFORMED BY: [facility] Ikwgte4495 [facility] [id number] Sedimentation Rate-Westergren 3 mm/h (Normal) Range: 0-40 :59 C-REACTIVE PROTEIN (38667) Comments: PATIENT NOT FASTINGPERFORMED BY: [facility]Up [facility]6370 [facility] [id number] C-Reactive Protein, Quant 2.6 mg/L (Normal) Range: 0.0-4.9 :06 TSH (16002) Comments: PATIENT NOT FASTINGPERFORMED BY: [facility] Qyshfq5527 [facility] [place] [id number] TSH 1.920 {uIU/mL} (Normal) Range: 0.450-4.500 :06 CBC with auto diff Comments: PATIENT NOT FASTINGPERFORMED BY: [facility] Rqizzr1423 [facility] [id number] Information: [id number] (81896) Immature Grans (Abs) 0.0 {x10E3/uL} (Normal) Range: [...] 3.77-5.28 WBC 7.9 {x10E3/uL} (Normal) Range: 3.4-10.8 2-Fii-401057:06 METABOLIC PANEL, COMPREHENSIVE Comments: PATIENT NOT FASTINGPERFORMED BY: [facility]Iebnmn9905 [facility] [id number] (65321) ALT (SGPT) 6 [iU]/L (Normal) Range: 0-32 [...] Glucose, Serum 111 mg/dL (Abnormal) Range: 65-99 7-Shv-496355:09 URINE HANSA CULTURE (JEWELS Comments: PATIENT NOT FASTINGPERFORMED BY: [facility]Sftwsb4071 [facility] [id number] Information: SRC:[employer] [id number] COL COUNT) (69703) Result 1 CNSNSS (Abnormal) Comments: Coagulase negative [...] S Urine Final report Culture,Comprehens (Abnormal) ananth 2-Ktl-044668:54 Urinalysis, Office (87783) UA - LEUKOCYTE ESTERASE Negative (Normal) UA - NITRITE Negative (Normal) URINE UROBILINGN JEWELS TIMED Normal mg/dL (Normal) UA - PROTEIN Negative mg/dL (Normal) UA - PH 6.5 (Normal) UA - BLOOD Negative (Normal) UA - SPECIFIC GRAVITY 1.015 (Normal) UA - KETONES Negative mg/dL (Normal) UA - BILIRUBIN Negative (Normal) UA - GLUCOSE Negative (Normal) 12-Lrc-872015:40 Urine Drug Screen (VISTA) Comments: Has pt arrived? YTest performed at:[facility] Uvasaftcgg[address] [place] [address] THC NEGATIVE (Normal) PCP NEGATIVE (Normal) [...] MUST BE ORDERED SEPARATELY. USE TESTMNEMONIC: UTCA 84-Nno-235081:25 Acetaminophen (Tylenol) Level Comments: Test performed at:[facility] [address]coaxbga[address] [place] [address] ACETAMINOPHEN < 2.0 ug/mL (Abnormal) Range: 10.0-30.0 26-Vjv-861044:25 Basic Metabolic Profile (BMP) Comments: Test performed at:[facility] Lyskambuni[address] [place] [address] GAP 8 (Normal) Range: 5-15 CO2 [...] 126 mg/dLsuggests DIABETES MELLITUS per A.D.A. criteria. 03-Coy-865870:25 CBC W/Diff, Automated Comments: Test performed at:[facility] [address]zcumd[address] [place] [address] Absolute Lymph 0.55 {X10_3/ul} (Abnormal) Range: 0.83-4.51 [...] 4.2-5.4 WBC 11.3 K/mm3 (Abnormal) Range: 4.4-11.0 47-Xln-159983:25 Partial Thromboplast Time Comments: Test performed at:[facility] [address]ifu[address] [place] [address] PTT 31.9 s (Normal) Range: 24.1-36.2 :25 Prothrombin Time w/INR Comments: Test performed at:[facility] Benkjapvyp[address] [place] [address] INR 1.1 (Normal) PROTIME 14.0 s (Normal) Range: 11.7-14.9 :22 Basic Metabolic Profile (BMP) Comments: Test performed at:[facility] Ttdcvufyhc7139 [facility] [place] [address] GAP 8 (Normal) Range: 5-15 CO2 31.0 [...] Blood Cnt No Diff Comments: Test performed at:[facility] [address]dhhtqhe[address] [place] [address] MPV 10.0 fL (Normal) Range: [...] Blood Cnt No Diff Comments: Test performed at:[facility] Nfcxgdzdox0542 [facility] [place] [address] MPV 10.4 fL (Normal) Range: [...] Basic Metabolic Profile (BMP) Comments: Test performed at:[facility] Lzmvjvkxwm6528 [facility] [place] [address] GAP 8 (Normal) Range: 5-15 [...] 126 mg/dLsuggests DIABETES MELLITUS per A.D.A. criteria. 25-Yzz-33422:52 CBC-Complete Blood Cnt No Diff Comments: Test performed at:[facility] [address] [place] [address] MPV 10.0 fL (Normal) Range: [...] 4.2-5.4 WBC 8.7 K/mm3 (Normal) Range: 4.4-11.0 33-Pug-626173:00 Bedside Glucose Comments: Test performed at:[facility] Oubgqldzha2764 [facility] [place] [address] BEDSIDE GLU 138 mg/dL (Abnormal) Range: 70-110 Comments: No Action RequiredMANAGEMENT OF PATIENT CARE PER NURSING PROTOCOL 90-Qsz-842955:12 Bedside Glucose Comments: Test performed at:[facility] Kjlpojwlqd8280 [facility] [place] [address] BEDSIDE GLU 108 mg/dL (Normal) Range: 70-110 Comments: No Action RequiredMANAGEMENT OF PATIENT CARE PER NURSING PROTOCOL 05-Igv-52073:07 VITAMIN B-12 (CYANOCOBALAMIN) Comments: PATIENT WAS FASTINGPERFORMED BY: LabCoStephen Ville 0705070 [facility] [id number] ([id number]) Vitamin B12 498 pg/mL (Normal) Range: 211-946 :07 MICROALBUMIN: CREATININE RATIO Comments: PATIENT WAS FASTINGPERFORMED BY: [facility]6370 [facility] [id number] (94257) AND (57568) Microalb/Creat Ratio 24.7 {mg/g_creat} (Normal) Range: 0.0-30.0 Microalbumin, Urine 36.2 ug/mL (Abnormal) Range: 0.0-17.0 Creatinine, Urine 146.6 mg/dL (Normal) Range: 15.0-278.0 :07 CBC W/AUTO DIFF WBC Comments: PATIENT WAS FASTINGPERFORMED BY: Cnano TechnologyJefferson [facility]Jjitzz4432 [facility] [id number] Information: [id number] (50675) Immature Grans (Abs) 0.0 {x10E3/uL} (Normal) Range: [...] 7.0 {x10E3/uL} (Normal) Range: 3.4-10.8 :07 TSH (12062) Comments: PATIENT WAS FASTINGPERFORMED BY: [employer] Aeqfxl0251 [facility] [id number] TSH 4.510 {uIU/mL} (Abnormal) Range: 0.450-4.500 :07 LIPID PANEL (99600) Comments: PATIENT WAS FASTINGPERFORMED BY: [employer] [facility] [id number] VLDL Cholesterol Peg VLDLCH mg/dL (Normal) Range: [...] PANEL, COMPREHENSIVE Comments: PATIENT WAS FASTINGPERFORMED BY: Zimory Rwqrzj2325 [facility] [id number] (46900) ALT (SGPT) 10 [iU]/L (Normal) Range: 0-32 [...] (Abnormal) Range: 65-99 :22 HgA1C , Office (82186) HgA1C , Office 6.9 % (Normal) Range: [...] 4.2-5.4 WBC 5.6 K/mm3 (Normal) Range: 4.4-11.0 9-Xop-895905:09 MRSA+SAID SCRN See Note (Normal) Comments: Results called on 08/07/14 by Zohreh THOMPSON ([facility]) [phone]. Comments: Copy of report sent to Infection Control Printer MS#[id number] 08/07/14 2624 [facility]. RESULTS PRINTED MS#[id number] S. AUREUS S. aureus PositiveMRSA MRSA Negative :34 VITAMIN B-12 (CYANOCOBALAMIN) Comments: PATIENT WAS FASTINGPERFORMED BY: [facility]CoJeff[facility]Dmytdj6640 [facility] [id number] (77325) Vitamin B12 1631 pg/mL (Abnormal) Range: 211-946 58-Evi-29044:34 CBC W/AUTO DIFF WBC Comments: PATIENT WAS FASTINGPERFORMED BY: [facility]6370 [facility] [id number] Information: [id number] (66218) Immature Grans (Abs) 0.0 {x10E3/uL} (Normal) Range: [...] 3.77-5.28 WBC 4.0 {x10E3/uL} (Normal) Range: 3.4-10.8 02-Evz-76771:34 METABOLIC PANEL, COMPREHENSIVE Comments: PATIENT WAS FASTINGPERFORMED BY: [facility]6370 [facility] [id number] (03439) ALT (SGPT) 10 [iU]/L (Normal) Range: 0-32 [...] Glucose, Serum 127 mg/dL (Abnormal) Range: 65-99 89-Qpd-95291:34 LIPID PANEL (70591) Comments: PATIENT WAS FASTINGPERFORMED BY: [facility]6370 [facility] [id number] LDL/HDL Ratio 3.3 {ratio_units} (Abnormal) Range: 0.0-3.2 [...] Microscopic Examination Comments: PATIENT WAS FASTINGPERFORMED BY: Referron[address] [facility] [id number] Bacteria None seen (Normal) Epithelial Cells (non renal) 0-10 {/hpf} (Normal) Range: 0 - 10 RBC None seen {/hpf} (Normal) Range: 0 - 2 WBC 0-5 {/hpf} (Normal) Range: 0 - 5 :12 TSH (86747) Comments: PATIENT WAS FASTINGPERFORMED BY: [facility]DEVHay[facility] [id number]; non-emergent till apt this week TSH 1.560 {uIU/mL} (Normal) Range: 0.450-4.500 :12 URINALYSIS, W/ MICRO (04148) Comments: PATIENT WAS FASTINGPERFORMED BY: Referron6370 [facility] [id number] Microscopic Examination See below: (Normal) Comments: Microscopic was indicated and was performed. Microscopic Examination MICRON (Normal) Comments: Microscopic follows if indicated. Nitrite, Urine Negative (Normal) Urobilinogen,Semi-Qn 0.2 mg/dL (Normal) Range: 0.0-1.9 Bilirubin Negative (Normal) Occult Blood Negative (Normal) Ketones Negative (Normal) Glucose Negative (Normal) Protein Trace (Normal) WBC Esterase Negative (Normal) Appearance Clear (Normal) Urine-Color Yellow (Normal) pH 8.0 (Abnormal) Range: 5.0-7.5 Specific [place] 1.014 (Normal) Range: 1.005-1.030 :12 Vitamin D Hydroxy (17761) Comments: PATIENT WAS FASTINGPERFORMED BY: Zimory Pyrsbu7559 [facility] [id number] Vitamin D, 25-Hydroxy 42.2 ng/mL (Normal) Range: 30.0-100.0 Comments: Vitamin D deficiency has been defined by the [place] ofMedicine and an Endocrine Society practice guideline as alevel of serum 25-OH vitamin D less than 20 ng/mL (1,2).The Endocrine Society went on to further define vitamin Dinsufficiency as a level between 21 and 29 ng/mL (2).1. IOM ([place] of Medicine). 2010. Dietary reference intakes for calcium and D. [place]: The National Academies Press.2. Delma MF, Mckenna ABDALLA, Dane MACKENZIE, et al. Evaluation, treatment, and prevention of vitamin D deficiency: an Endocrine Society clinical practice guideline. JCEM. 2010; 96(7):1911-30. :12 MICROALBUMIN: CREATININE RATIO Comments: PATIENT WAS FASTINGPERFORMED BY: Cnano TechnologyJefferson [facility])Muuzch9927 [facility] [id number] (55205) AND (08065) Microalb/Creat Ratio 4.7 {mg/g_creat} (Normal) Range: 0.0-30.0 Creatinine, Urine 49.4 mg/dL (Normal) Range: 15.0-278.0 Microalbumin, Urine 2.3 ug/mL (Normal) Range: 0.0-17.0 :12 METABOLIC PANEL, Comments: PATIENT WAS FASTINGPERFORMED BY: Cnano TechnologyJeff[facility])Ztcger4722 [facility] [id number] Information: [id number] COMPREHENSIVE (17937) ALT (SGPT) 12 [iU]/L (Normal) Range: 0-32 [...] mg/dL (Abnormal) Range: 65-99 :12 LIPID PANEL (43562) Comments: PATIENT WAS FASTINGPERFORMED BY: [employer] [facility] [id number] LDL/HDL Ratio 2.7 {ratio_units} (Normal) Range: 0.0-3.2 [...] B-12 (CYANOCOBALAMIN) Comments: PATIENT WAS FASTINGPERFORMED BY: [employer] [facility] [id number] (65481) Vitamin B12 287 pg/mL (Normal) Range: 211-946 :34 HgA1C , Office (53674) HgA1C , Office 6.3 % (Normal) Range: 4.6 - 7.1 :55 Creatine Kinase Total (23998) Comments: PATIENT NOT FASTINGPERFORMED BY: [employer] [facility] [id number] Creatine Kinase,Total,Serum 105 U/L (Normal) Range: 24-173 :55 TSH (68221) Comments: PATIENT NOT FASTINGPERFORMED BY: [facility]CoJeff[facility])Fpanhn1234 [facility] [id number] TSH 1.590 {uIU/mL} (Normal) Range: 0.450-4.500 :55 METABOLIC PANEL, Comments: PATIENT NOT FASTINGPERFORMED BY: [facility]CoJeff[facility])Hpftsg5357 [facility] [id number] Information: [id number] COMPREHENSIVE (84816) ALT (SGPT) 13 [iU]/L (Normal) Range: 0-32 [...] be changing to: 0 - 30 days - 31 d - 5 months - 6 m - 11 months 1 - 12 years 17 - 27 [...] (Abnormal) Range: 65-99 :33 HgA1C , Office (05293) HgA1C , Office 6.7 % (Normal) Range: 4.6 - 7.1 :46 MICROALBUMIN: CREATININE RATIO Comments: PATIENT WAS FASTINGPERFORMED BY: Zimory Kibvsg6645 [facility] [id number] (46418) AND (08761) Microalb/Creat Ratio 20.0 {mg/g_creat} (Normal) Range: 0.0-30.0 Microalbumin, Urine 21.7 ug/mL (Abnormal) Range: 0.0-17.0 Creatinine, Urine 108.5 mg/dL (Normal) Range: 15.0-278.0 :46 TSH (70021) Comments: PATIENT WAS FASTINGPERFORMED BY: [employer] Njryio7860 [facility] [id number] TSH 2.670 {uIU/mL} (Normal) Range: 0.450-4.500 :46 Vitamin D Hydroxy (86677) Comments: PATIENT WAS FASTINGPERFORMED BY: LabGaosi Education Grouprp Laphrf5675 [facility] [id number] Vitamin D, 25-Hydroxy 42.9 ng/mL (Normal) Range: 30.0-100.0 Comments: Vitamin D deficiency has been defined by the [place] ofVan Wert County Hospitalcine and an Endocrine Society practice guideline as alevel of serum 25-OH vitamin D less than 20 ng/mL (1,2).The Endocrine Society went on to further define vitamin Dinsufficiency as a level between 21 and 29 ng/mL (2).1. IOM ([place]rill of Medicine). 2010. Dietary reference intakes for calcium and D. [place]: The National Academies Press.2. Delma MF, Mckenna ABDALLA, Dane MACKENZIE, et al. Evaluation, treatment, and prevention of vitamin D deficiency: an Endocrine Society clinical practice guideline. JCEM. 2010; 96(7):1911-30. :46 CBC, PLATELETS & AUT DIFF Comments: PATIENT WAS FASTINGPERFORMED BY: [facility]CoJeff[facility])Mirbmg1890 [facility] [id number] Information: [id number] (32798) Immature Grans (Abs) 0.0 {x10E3/uL} (Normal) Range: [...] 3.77-5.28 WBC 8.7 {x10E3/uL} (Normal) Range: 3.4-10.8 59-Rir-677442:46 VITAMIN B-12 (CYANOCOBALAMIN) Comments: PATIENT WAS FASTINGPERFORMED BY: [facility]Jeff[facility])Rgsylg7970 [facility] [id number] (30096) Vitamin B12 382 pg/mL (Normal) Range: 211-946 72-Dmj-874903:46 METABOLIC PANEL, COMPREHENSIVE Comments: PATIENT WAS FASTINGPERFORMED BY: CLARITA HistoRx70 [facility] [id number] (11130) ALT (SGPT) 15 [iU]/L (Normal) Range: 0-32 [...] Glucose, Serum 130 mg/dL (Abnormal) Range: 65-99 97-Qyc-607829:46 LIPID PANEL (23450) Comments: PATIENT WAS FASTINGPERFORMED BY: CLARITA [place] MR Photoelectricity6370 [facility] [id number] LDL/HDL Ratio 3.4 {ratio_units} (Abnormal) Range: 0.0-3.2 LDL Cholesterol Calc 130 mg/dL (Abnormal) Range: 0-99 VLDL Cholesterol Peg 57 mg/dL (Abnormal) Range: 5-40 HDL Cholesterol 38 mg/dL (Abnormal) Comments: According to ATP-III Guidelines, HDL-C >59 mg/dL is considered anegative risk factor for CHD. Triglycerides 287 mg/dL (Abnormal) Range: 0-149 Cholesterol, Total 225 mg/dL (Abnormal) Range: 100-199 4-Jiq-522197:44 HgA1C , Office (17140) HgA1C , Office 6.6 % (Normal) Range: 4.6 - 7.1 :43 CBC, Platelets & Auto Diff Comments: PATIENT NOT FASTINGPERFORMED BY: [facility] Ouukfn9785 [facility] [id number] Information: [id number] (66468) Immature Grans (Abs) 0.0 {x10E3/uL} (Normal) Range: [...] (Normal) Range: 3.4-10.8 :43 Metabolic Panel, Basic (71381) Comments: PATIENT NOT FASTINGPERFORMED BY: [facility]6370 [facility] [id number] Calcium, Serum 9.4 mg/dL (Normal) Range: 8.6-10.2 [...] mg/dL (Abnormal) Range: 65-99 :10 HANSA CULTURE-OTHER (27882) Comments: PATIENT NOT FASTINGPERFORMED BY: [facility]6370 [facility] [id number] Information: SRC:THRT [id number] Result 1 RFMNR (Normal) Comments: Mixed growth consisting of multiple gram negative rods and routinerespiratory vicente. Upper Respiratory Culture Final report (Normal) :56 Rapid Strep Test, Office (88998) Rapid Strep Test, Office Negative (Normal) :03 Blood Glucose , Office (92735) Blood Glucose , Office 150 (Normal) :14 PPD (44184) Comments: Lot: [id number]: 12/17Amt: 0.1mlRoute: intradermalSite: R FAGiven by: JQuestel, SCIENCE TUTOR SKIN TEST INTRADERMAL TB negative (Normal) :39 HgA1C , Office (66549) HgA1C , Office 6.4 % (Normal) Range: 4.6 - 7.1 :31 Microscopic Examination Comments: PATIENT WAS FASTINGPERFORMED BY: Cnano TechnologyJefferson [facility])Lcbwap5694 [facility] [id number] Bacteria Few (Normal) Mucus Threads Present (Normal) Epithelial Cells (non renal) 0-10 {/hpf} (Normal) Range: 0 - 10 RBC 0-3 {/hpf} (Normal) Range: 0 - 3 WBC 0-5 {/hpf} (Normal) Range: 0 - 5 :31 MICROALBUMIN: CREATININE RATIO Comments: PATIENT WAS FASTINGPERFORMED BY: C[facility]ano TechnologyJefferson [facility])Ostyzv1506 [facility] [id number] (80370) AND (91549) Microalb/Creat Ratio 12.6 {mg/g_creat} (Normal) Range: 0.0-30.0 Microalbumin, Urine 9.2 ug/mL (Normal) Range: 0.0-17.0 Creatinine, Urine 73.3 mg/dL (Normal) Range: 15.0-278.0 :31 CBC WITH MANUAL DIFF Comments: PATIENT WAS FASTINGPERFORMED BY: [facility]6370 [facility] [id number] Information: [id number] (46618) Immature Grans (Abs) 0.0 {x10E3/uL} (Normal) Range: [...] 3.77-5.28 WBC 4.6 {x10E3/uL} (Normal) Range: 4.0-10.5 48-Mdh-70770:31 METABOLIC PANEL, COMPREHENSIVE Comments: PATIENT WAS FASTINGPERFORMED BY: [facility]Iujiyw5233 [facility] [id number] (46757) ALT (SGPT) 14 [iU]/L (Normal) Range: 0-32 [...] (Abnormal) Range: 65-99 :31 URINALYSIS, W/ MICRO (33002) Comments: PATIENT WAS FASTINGPERFORMED BY: SP[employer] [place] [id number] Microscopic Examination See below: (Normal) Microscopic Examination MICRON (Normal) Comments: Microscopic follows if indicated. Nitrite, Urine Negative (Normal) Urobilinogen,Semi-Qn 0.2 mg/dL (Normal) Range: 0.0-1.9 Bilirubin Negative (Normal) Occult Blood Negative (Normal) Ketones Negative (Normal) Glucose Negative (Normal) Protein Negative (Normal) Appearance Clear (Normal) Urine-Color Yellow (Normal) WBC Esterase Negative (Normal) pH 8.5 (Abnormal) Range: 5.0-7.5 Specific [place] 1.018 (Normal) Range: 1.005-1.030 :31 LIPID PANEL (63549) Comments: PATIENT WAS FASTINGPERFORMED BY: [employer]70 [facility] [id number] LDL Cholesterol Calc 75 mg/dL (Normal) Range: [...] B-12 (CYANOCOBALAMIN) Comments: PATIENT WAS FASTINGPERFORMED BY: [facility]6370 [facility] [id number] (89874) Vitamin B12 299 pg/mL (Normal) Range: 211-946 :31 Vitamin D Hydroxy (60743) Comments: PATIENT WAS FASTINGPERFORMED BY: [facility] Ykynih3280 [facility] [id number] Vitamin D, 25-Hydroxy 31.2 ng/mL (Normal) Range: 30.0-100.0 Comments: Vitamin D deficiency has been defined by the [place] ofMedicine and an Endocrine Society practice guideline as alevel of serum 25-OH vitamin D less than 20 ng/mL (1,2).The Endocrine Society went on to further define vitamin Dinsufficiency as a level between 21 and 29 ng/mL (2).1. IOM ([place] of Medicine). 2010. Dietary reference intakes for calcium and D. [place]: The National Academies Press.2. Delma MF, Mckenna ABDALLA, Dane MACKENZIE, et al. Evaluation, treatment, and prevention of vitamin D deficiency: an Endocrine Society clinical practice guideline. JCEM. 2010; 96(7):1911-30. :31 TSH (78137) Comments: PATIENT WAS FASTINGPERFORMED BY: [facility]6370 [facility] [id number] TSH 4.190 {uIU/mL} (Normal) Range: 0.450-4.500 :15 HgA1C , Office (46160) HgA1C , Office 6.4 % (Normal) Range: 4.6 - 7.1 :15 Blood Glucose , Office (35972) Blood Glucose , Office 141 (Normal) :19 [...] M.D.October 02, 2012 at 9:24 :48 PM [id number] Signed RB/RB If you are the referring physician and would like to consult with theradiologist who provided this interpretation, please contact Mame Mario at [phone]. If this radiologist is unavailable, you will bedirected to another radiologist to assist. If you are a patient with a question regarding this report, pleasecontactyour referring physician harman benítez. Professional Interpretation Provided By: Tapstream, Phone , These documents contain legally protected [...] on 10/02/122128 Sign by: Keith Crocker DO 78-Zgn-58645:55 Vitamin D Hydroxy (98737) Comments: PATIENT NOT FASTINGPERFORMED BY: [facility]6370 [facility] [id number] Information: [id number] Vitamin D, 25-Hydroxy 39.5 ng/mL (Normal) Range: 30.0-100.0 Comments: Vitamin D deficiency has been defined by the [place] ofMedicine and an Endocrine Society practice guideline as alevel of serum 25-OH vitamin D less than 20 ng/mL (1,2).The Endocrine Society went on to further define vitamin Dinsufficiency as a level between 21 and 29 ng/mL (2).1. IOM ([place] of Medicine). 2010. Dietary reference intakes for calcium and D. [place]: The National Academies Press.2. Delma MF, Mckenna [place], Dane MACKENZIE, et al. Evaluation, treatment, and prevention of vitamin D deficiency: an Endocrine Society clinical practice guideline. JCEM. 2010; 96(7):1911-30. 33-Kvn-81059:41 ESOPHAGUS ONLY Radiology Report See Note (Normal) [...] Valenzuela M.D.September 17, 2012 at 9:02:07 AM [id number] Signed GP/GP If you are the referring physician and would like to consult with theradiologist damaso davenport provided this interpretation, please contact Mame Mccoy at [phone]. If this radiologist is unavailable, youwill be directed to another radiologist to assist. If you are a patient wi th a question regarding this report, pleasecontactyour referring physician directly. Professional Interpretation Provided By: [employer], Phone , These documents contain l egally [...] destructionof these documents. Dictated on 09/17/12719 by Nicolas ARAGON,Brendaranscribed on 09/17/12908 by ITS IMPORTSign by Nicolas ARAGON,Florian on 09/17/12908 Sign by: Florian Valenzuela MD 17-Sep-2012 B12 284 pg/mL Range: 211-946 7:31 (Normal) Comments: Performed at: [address] [id number] Director: Demarco Mccormack PhD, Phone: [phone] 17-Sep-2012 BID 0.10 mg/dL Range: 0.00-0.30 7:31 (Normal) 56-Mkw-10661:31 CBCMD ANC 3.6 3/uL (Normal) Range: 2.0-7.7 [...] IMPAIRED HOMEOSTASIS per A.D.A. criteria. :31 CUUR URC See Note {CFU/mL} (Normal) Comments: COLONY COUNT [...] Simpson M.D.September 13, 2012 at 2:32:10 PM [id number] Signed DL/DL If you are the referring physician and would like to consult with theradiologist who provided this interpretation, please co ntact Mame Lancaster at [phone]. If this radiologist is unavailable, youwillbe directed to another radiologist to assist. If you are a patient with a question regarding this report, pleasecont actyour referring physician directly. Professional Interpretation Provided By: Tapstream, Phone , These documents contain legally protected [...] on 09/13/12 0815 Theo Bull MDTranscribed on 09/13/121435 by ITS IMPORTSign by Theo Simpson MD on 09/13/12 143 Sign by: Theo Simpson MD :36 THYROID Radiology Report See Note (Normal) Comments: [...] Valenzuela M.D.September 13 13 at 2:58:06 PM [id number] Signed GP/GP If you are the referring physician and would like to consult with theradiologist who provided this interpretation, please contact Brown chaidez M.D. at [phone]. If this radiologist is unavailable, youwill be directed to another radiologist to assist. If you are a patient with a question regarding this report, pleasecontactyour refer ring physician directly. Professional Interpretation Provided By: Shira, Phone , These documents contain legally protected [...] documents. Dictated on 09/13/12 0846 by Nicolas Hammer,Brendaranscribed on 09/13/12 1502 by ITS IMPORTSign by Florian Valenzuela MD on 09/13/12 1503 Sign by: Florian Valenzuela MD 24-Jun-95765:28 CRE Comments: CALL 8665 WITH RESULTSRESULTS CALLED TO DEBBIE 09/13/12 0801 [facility]UR[facility] DIAZ.REPORT READ BACK BY SAME . GFR 105 mL/min (Normal) GFRAA 127 mL/min (Normal) CREAT 0.6 mg/dL (Normal) Range: 0.6-1.0 99-Imk-94696:23 URINE HANSA CULTURE-JEWELS COL Comments: PATIENT NOT FASTINGPERFORMED BY: [facility]Ljkwki9118 [facility] [id number] Information: SRC:UR [id number] COUNT (46121) Result 1 NG36 (Normal) Comments: No growth in 36 - 48 hours. Urine Culture,Comprehensive Final report (Normal) 47-Yff-62195:39 Urinalysis, Office (31944) UA - BILIRUBIN Negative (Normal) UA - BLOOD Non Hemolyzed Trace (Normal) UA - GLUCOSE Negative (Normal) UA - KETONES Negative mg/dL (Normal) UA - LEUKOCYTE ESTERASE Negative (Normal) UA - NITRITE Negative (Normal) UA - PH 6.5 (Normal) UA - PROTEIN Negative mg/dL (Normal) UA - SPECIFIC GRAVITY 1.015 (Normal) URINE UROBILINGN JEWELS TIMED Normal mg/dL (Normal) :35 HgA1C , Office (94250) HgA1C , Office 6.3 % (Normal) Range: 4.6 - 7.1 :35 Blood Glucose , Office (88237) Blood Glucose , Office 143 (Normal) :54 Comp. Metabolic Panel (14) Comments: PATIENT WAS FASTINGPERFORMED BY: CLARITA ZeroPercent.uslin[address] [facility] [id number] Information: 07/08@830AM 07/09@830AM ALT (SGPT) 11 [iU]/L [...] Creatinine Clearance Comments: PATIENT WAS FASTINGPERFORMED BY: HistoRx70 [facility] [id number] Creatinine Clearance 70 mL/min (Abnormal) Range: 88-128 Comments: The above range is based on 1.73 square meter average body surfacearea. Creatinine, Ur 24hr 777.0 {mg/24_hr} (Abnormal) Range: 800.0-1800.0 Creatinine, Urine 37.9 mg/dL (Normal) Range: 15.0-278.0 :54 Lipid Panel With LDL/HDL Comments: PATIENT WAS FASTINGPERFORMED BY: [place] 7794670 [facility] [id number] Ratio LDL/HDL Ratio 2.6 {ratio_units} (Normal) Range: [...] Qn, 24-Hr Comments: PATIENT WAS FASTINGPERFORMED BY: [facility]6370 [facility] [id number] Urine Prot,24hr calculated <30.8 {mg/24_hr} Range: 30.0-150.0 (Normal) Protein,Total,Urine <1.5 mg/dL (Normal) Range: 0.0-15.0 Comments: Verified by repeat analysis TSH 2.550 {uIU/mL} Comments: PATIENT WAS FASTINGPERFORMED BY: [place] 7794670 [facility] [id number] :54 (Normal) Range: 0.450-4.500 Vitamin B12 271 pg/mL (Normal) Comments: PATIENT WAS FASTINGPERFORMED BY: [facility]6370 [facility] [id number] :54 Range: 211-946 1-Moc-039879:08 CBC WITH MANUAL DIFF Comments: PATIENT NOT FASTINGPERFORMED BY: CLARITA [facility]CoJeff[facility]Rkohlt4758 [facility] [id number] Information: [id number] (04503) Immature Grans (Abs) 0.0 {x10E3/uL} (Normal) Range: [...] 3.77-5.28 WBC 4.0 {x10E3/uL} (Normal) Range: 4.0-10.5 2-Dgw-635497:01 FECAL OCCULT- Tubes sent home (05739) FECAL OCCULT HGB ASSAY, QUAL, 1-3 SIMULTANEOU [...] Valenzuela M.D.April 30, 2012 at 8:16:04 AM [id number] Signed GP/GP If you are the referring physician and would like to consult with theradiologist who prov ided this interpretation, please contact Mame Mccoy at [phone]. If this radiologist is unavailable, youwill be directed to another radiologist to assist. If you are a patient with a qu estion regarding this report, pleasecontactyour referring physician directly. Professional Interpretation Provided By: Tap[employer], Phone , These documents contain legally protected [...] return or destructionofthese d ocuments. Dictated on 04/30/12 0742 by Nicolas ARAGON,Didiscribed on 04/30/12828 by ITS IMPORTSign by Florian Valenzuela MD on 04/30/12 0830 Sign by: Florian Valenzuela MD :44 HgA1C , Office (43015) HgA1C , Office 6.3 % (Normal) Range: 4.6 - 7.1 :44 Blood Glucose , Office (20639) Blood Glucose , Office 150 (Normal) Comments: has part of a cinnamon bun for breakfast :52 Microscopic Examination Comments: PATIENT WAS FASTINGPERFORMED BY: [facility]Otatdv1411 [facility] [id number] Bacteria None seen (Normal) Mucus Threads Present (Normal) Epithelial Cells (non renal) 0-10 {/hpf} (Normal) Range: 0 - 10 RBC 0-3 {/hpf} (Normal) Range: 0 - 3 WBC 0-5 {/hpf} (Normal) Range: 0 - 5 :52 CBC WITH MANUAL DIFF Comments: PATIENT WAS FASTINGPERFORMED BY: [facility] Ppfgvj3789 [facility] [id number] Information: [id number] (69681) Immature Grans (Abs) 0.0 {x10E3/uL} (Normal) Range: [...] (Normal) Range: 4.0-10.5 :52 URINALYSIS, W/ MICRO (99563) Comments: PATIENT WAS FASTINGPERFORMED BY: [employer] [facility] [id number] Microscopic Examination See below: (Normal) Nitrite, Urine Negative (Normal) Urobilinogen,Semi-Qn 1.0 mg/dL (Normal) Range: 0.0-1.9 Bilirubin Negative (Normal) Occult Blood Negative (Normal) Ketones Negative (Normal) Glucose Negative (Normal) Protein 2+ (Abnormal) WBC Esterase Negative (Normal) Appearance Clear (Normal) Urine-Color Yellow (Normal) pH 7.0 (Normal) Range: 5.0-7.5 Specific [place] 1.029 (Normal) Range: 1.005-1.030 :52 TSH (77561) Comments: PATIENT WAS FASTINGPERFORMED BY: [employer] Gcszsw1340 [facility] [id number] TSH 2.060 {uIU/mL} (Normal) Range: 0.450-4.500 :52 METABOLIC PANEL, COMPREHENSIVE Comments: PATIENT WAS FASTINGPERFORMED BY: [employer] [facility] [id number] (93980) ALT (SGPT) 16 [iU]/L (Normal) Range: 0-40 [...] mg/dL (Abnormal) Range: 65-99 :52 LIPID PANEL (01824) Comments: PATIENT WAS FASTINGPERFORMED BY: [facility]6370 [facility] [id number] LDL/HDL Ratio 2.2 {ratio_units} (Normal) Range: 0.0-3.2 [...] CREATININE RATIO Comments: PATIENT WAS FASTINGPERFORMED BY: [facility] Vykpmb3106 [facility] [id number] (50063) AND (29385) Microalb/Creat Ratio 822.1 {mg/g_creat} (Abnormal) Range: 0.0-30.0 Microalbumin, Urine 844.3 ug/mL (Abnormal) Range: 0.0-17.0 Creatinine, Urine 102.7 mg/dL (Normal) Range: 15.0-278.0 53-Paw-539062:18 HgA1C , Office (25637) HgA1C , Office 6.3 % (Normal) Range: 4.6 - 7.1 03-Dzk-368325:16 CHEST WITH CONTRAST Radiology Report See Note [...] radiologist regarding this report, please call our 22Y2zhmwnsv line @ Dictated on 12/14/11 1033 by Nicolas ARAGON,[facility] on 12/14/11 1438 by ITS IMPORTSign by Nicolas ARAGON,Florian on 12/14/11 1439 Sign by: Florian Valenzuela MD 05-Dec-20119:19 CBC WITH MANUAL DIFF Comments: PATIENT WAS FASTINGPERFORMED BY: [facility]Shilgp6534 [facility] [id number] Information: [id number] (87200) Immature Grans (Abs) 0.0 {x10E3/uL} (Normal) Range: [...] 3.80-5.10 WBC 5.2 {x10E3/uL} (Normal) Range: 4.0-10.5 05-Dec-20119:19 METABOLIC PANEL, COMPREHENSIVE Comments: PATIENT WAS FASTINGPERFORMED BY: [facility]Fedocb9767 [facility] [id number] (81452) ALT (SGPT) 14 [iU]/L (Normal) Range: 0-40 [...] Glucose, Serum 104 mg/dL (Abnormal) Range: 65-99 05-Dec-20119:19 LIPID PANEL (14034) Comments: PATIENT WAS FASTINGPERFORMED BY: [place] 0705070 [facility] [id number]; appt 12-21-11 LDL/HDL Ratio 3.0 {ratio_units} Range: [...] {units} (Normal) Comments: PATIENT NOT FASTINGPERFORMED BY: [employer] Mcwrzx6758 [facility] [id number] BY: [employer] [id number] 10:24 Range: 0-19 Comments: Negative <20 Weak positive 20 - 39 Moderate positive 40 - 59 Strong positive >59 1-Yyz-507875:24 EBV Panel (44023) Comments: PATIENT NOT FASTINGPERFORMED BY: Zimory[address] [id number] BY: [employer] [id number] Interpretation: SPRCS (Normal) Comments: EBV Interpretation Chart [...] <0.9 Equivocal 0.9 - 1.0 Positive >1.0 8-Gur-656605:24 SED RATE ERYTHROCYTE Comments: PATIENT NOT FASTINGPERFORMED BY: [address] [id number] BY: [address] [id number] (39110) Sedimentation Rate-Westergren 6 mm/h (Normal) Range: 0-40 7-Jss-433166:24 C-REACTIVE PROTEIN (82123) Comments: PATIENT NOT FASTINGPERFORMED BY: [address] [id number] BY: [address] [id number] C-Reactive Protein, Quant 2.1 mg/L (Normal) Range: 0.0-4.9 6-Fza-501839:24 TSH (98573) Comments: PATIENT NOT FASTINGPERFORMED BY: [place] 7794670 [facility] [id number] BY: [address] [id number] TSH 1.610 {uIU/mL} (Normal) Range: 0.450-4.500 7-Wdw-488205:24 RHEUMATOID FACTOR-QUANT Comments: PATIENT NOT FASTINGPERFORMED BY: [address] [id number] BY: [address] [id number] (39908) RA Latex Turbid. 8.4 {IU/mL} (Normal) Range: 0.0-13.9 9-Ogk-299093:24 [place] (ANTINUCLEAR ANTIBODY) Comments: PATIENT NOT FASTINGPERFORMED BY: [facility]6370 [facility] [id number] BY: [address] [id number] (75643) [place] Direct Negative (Normal) 1-Xnn-881772:24 CBC WITH MANUAL DIFF Comments: PATIENT NOT FASTINGPERFORMED BY: [facility]Yfnkto8364 [facility] [id number] BY: LabDustin V[place] 732327 [facility] [id number] Inf ormation: [id number] (86512) Immature Grans (Abs) 0.0 {x10E3/uL} (Normal) Range: [...] 3.80-5.10 WBC 4.6 {x10E3/uL} (Normal) Range: 4.0-10.5 3-Zkz-603069:24 METABOLIC PANEL, Comments: PATIENT NOT FASTINGPERFORMED BY: CB [facility] Ainomr4627 [facility] [id number] BY: BN [facility] Cunmjofbxd2433 [facility] [id number]; appt 12-21-11 COMPREHENSIVE (59116) ALT (SGPT) 13 [iU]/L (Normal) Range: 0-40 [...] Glucose, Serum 118 mg/dL (Abnormal) Range: 65-99 9-Wtk-365224:51 HANSA CULTURE-OTHER (39185) Comments: PATIENT NOT FASTINGPERFORMED BY: CLARITA [facility] Zphagq[address] [facility] [id number] Information: SRC:AIDAN [id number] Result 1 RRF (Normal) Comments: Routine respiratory vicente Upper Respiratory Culture Final report (Normal) 07-Nov-20119:19 Rapid Strep Test, Office (93528) Rapid Strep Test, Office Negative (Normal) 62-Gwm-484727:16 HgA1C , Office (24403) HgA1C , Office 6.1 % (Normal) Range: 4.6 - 7.1 92-Tdn-483934:16 Blood Glucose , Office (16757) Blood Glucose , Office 141 (Normal) 13-Yyb-644460:10 ABDOMEN/PELVIS WITH CONTRAST Radiology Report See Note [...] 08/01/11 1331 by Brenda Valenzuela MDranscribed on 08/01/111409 by ITS IMPORTSign by Florian Valenzuela MD on 08/01/111409 Si gn by: Florian Valenzuela MD 61-Rhi-611060:39 CHEST WITH CONTRAST Radiology Report See Note [...] noted, distal end at the level of E9qmqwf. Normal osseous structures. There is limited visualization of the liver, spleen w ithout ademonstratedabnormality. IMPRESSION:No pulmonary embolism. No aortic dissection. Nonspecific two to 3-mmsubtle nodular density at right upper lobe, image 145 probably representatypically atelec tatic change. Dictated on 04/21/11 1104 by Leonard Odell MDranscribed on 04/22/11 1013 by ITS IMPORTSign by Jordan Odell MD on 04/22/11 1014 Sign by: Jordan Odell MD :29 MICROALBUMIN: CREATININE RATIO Comments: PATIENT WAS FASTINGPERFORMED BY: Referron[address] [facility] [id number] (90326) AND (80330) Microalb/Creat Ratio 11.8 {mg/g_creat} (Normal) Range: 0.0-30.0 Microalbumin, Urine 7.3 ug/mL (Normal) Range: 0.0-17.0 Creatinine, Urine 61.9 mg/dL (Normal) Range: 15.0-278.0 :29 LIPID PANEL (26855) Comments: PATIENT WAS FASTINGPERFORMED BY: [employer]70 [address] [facility] HospitalR.A. Burch ConstructionHaywood Regional Medical Center [id number]; appt 07/25/11 VLDL Cholesterol Peg VLDLCH mg/dL [...] MANUAL DIFF Comments: PATIENT WAS FASTINGPERFORMED BY: [employer] Ryrwhd3000 [facility] [id number] Information: [id number] (28619) Immature Grans (Abs) 0.0 {x10E3/uL} (Normal) Range: [...] 3.80-5.10 WBC 5.7 {x10E3/uL} (Normal) Range: 4.0-10.5 63-Xzi-849451:29 METABOLIC PANEL, COMPREHENSIVE Comments: PATIENT WAS FASTINGPERFORMED BY: [facility]Vpgucy2252 [facility] [id number] (91569) ALT (SGPT) 12 [iU]/L (Normal) Range: 0-40 [...] Glucose, Serum 120 mg/dL (Abnormal) Range: 65-99 09-Vvr-53453:46 THYROID Radiology Report See Note (Normal) Comments: [...] IMPORTSign by Jordan Odell MD on 03/28/11 114 Sign by: Jordan Odell MD :10 CHEST, [...] 1019 Sign by: ___ Florian Valenzuela MD 46-Atd-83210:47 SOFT TISSUE NECK WITH CONTRAST Radiology Report [...] malformation. Normal bilateral parotid glands. Normal bilateral bird raiser spaces.Normal bilateral parapharyngeal spaces. Normal bilateral carotid [...] neck. Dic tated on 01/24/11 0805 by Jason Valenzuela MDeleTranscribed on 01/24/11 1016 by ITS IMPORTSign by Florian Valenzuela MD on 01/24/11 1017 Sign by: Florian Valenzuela MD 06-Arw-03306:15 CBC WITH MANUAL DIFF Comments: PATIENT WAS FASTINGPERFORMED BY: [facility]Omguvf0639 [facility] [id number] Information: [id number] (13572) Immature Grans (Abs) 0.0 {x10E3/uL} (Normal) Range: [...] 3.80-5.10 WBC 7.0 {x10E3/uL} (Normal) Range: 4.0-10.5 63-Fym-92477:15 METABOLIC PANEL, COMPREHENSIVE Comments: PATIENT WAS FASTINGPERFORMED BY: [facility]6370 [facility] [id number] (03177) ALT (SGPT) 10 [iU]/L (Normal) Range: 0-40 [...] mg/dL (Abnormal) Range: 65-99 :15 LIPID PANEL (40532) Comments: PATIENT WAS FASTINGPERFORMED BY: [employer] [facility] [id number]; has f/u 04/20/11 LDL/HDL Ratio 2.5 {ratio_units} (Normal) Range: 0.0-3.2 LDL Cholesterol Calc 94 mg/dL (Normal) Range: 0-99 VLDL Cholesterol Peg 46 mg/dL (Abnormal) Range: 5-40 HDL Cholesterol 37 mg/dL (Abnormal) Comments: According to ATP-III Guidelines, HDL-C >59 mg/dL is considered anegative risk factor for CHD. Triglycerides 230 mg/dL (Abnormal) Range: 0-149 Cholesterol, Total 177 mg/dL (Normal) Range: 100-199 :15 HgA1C , Office (97897) Comments: PATIENT WAS FASTINGPERFORMED BY: Referron6370 [facility] [id number] Glycohemoglobin (GHb), Total 7.7 % (Normal) Comments: Diabetic Adult <9.0 Healthy Adult 3.9 - 7.3 (DCCT/NGSP) Current ADA guide lines recommend a treatment goal of <7.0% HgbA1c for diabetic patients, which corresponds to a <9.0% Glycohemoglobin result with this method. :50 Blood Glucose , Office (88808) Blood Glucose , Office 160 (Normal) :48 [...] = 500 mg/dL :33 HgA1C , Office (60247) HgA1C , Office 6.5 % (Normal) Range: 4.6 - 7.1 :33 Blood Glucose , Office (87793) Blood Glucose , Office 154 (Normal) 58-Jph-434326:11 Influenza A, H1N1, RT PCR Comments: PERFORMED BY: [employer] [id number] BY: [facility] HospitalGaosi Education Group[address] [id number] Information: SRC:NL Subtype Novel H1N1 by Negative (Normal) PCR Type Influenza A by Negative (Normal) PCR Viral FLUABN (Normal) Comments: PERFORMED BY: [employer] [id number] BY: LabGaosi [employer] Group[address] [id number] :11 Culture,Rapid,Influenz Comments: Negative:No Influenza A or B detected. a :04 Urinalysis, Office (75212) UA - BILIRUBIN Negative (Normal) UA - BLOOD Negative (Normal) UA - GLUCOSE Negative (Normal) UA - KETONES Negative mg/dL (Normal) UA - LEUKOCYTE ESTERASE Negative (Normal) UA - NITRITE Negative (Normal) UA - PH 6.0 (Normal) UA - PROTEIN Negative mg/dL (Normal) UA - SPECIFIC GRAVITY 1.025 (Normal) URINE UROBILINGN JEWELS TIMED Normal mg/dL (Normal) :59 Vitamin D Hydroxy (82223) Comments: PATIENT WAS FASTINGPERFORMED BY: [facility] Pstntp1692 [facility] [id number] Vitamin D, 25-Hydroxy 32.0 ng/mL (Normal) Range: 32.0-100.0 Comments: Recent studies consider the lower limit of 32.0 ng/mL to be athreshold for optimal health.Jose MAYA. J Nutr. 2004;135(2):317-22. 4-:59 METABOLIC PANEL, Comments: PATIENT WAS FASTINGPERFORMED BY: [facility] Prjmov8089 [facility] [id number] Information: [id number] COMPREHENSIVE (98086) ALT (SGPT) 9 [iU]/L (Normal) Range: 0-40 [...] mg/dL (Abnormal) Range: 65-99 :59 LIPID PANEL (26584) Comments: PATIENT WAS FASTINGPERFORMED BY: [employer] [facility] [id number] LDL Cholesterol Calc 87 mg/dL (Normal) Range: [...] MANUAL DIFF Comments: PATIENT WAS FASTINGPERFORMED BY: [employer]70 [facility] [id number] Information: ADD [id number] AND DRAW FEE [id number] (17278) Immature Grans (Abs) 0.0 {x10E3/uL} (Normal) Range: [...] CREATININE RATIO Comments: PATIENT WAS FASTINGPERFORMED BY: [employer]70 [facility] [id number] (81523) AND (56412) Creatinine, Urine 87.5 mg/dL (Normal) Range: 15.0-278.0 Microalb/Creat Ratio 4.5 {mg/g_creat} (Normal) Range: 0.0-30.0 Microalbumin, Urine 3.9 ug/mL (Normal) Range: 0.0-17.0 :57 METABOLIC PANEL, COMPREHENSIVE Comments: PATIENT WAS FASTINGPERFORMED BY: [employer]70 [facility] [id number] (08656) ALT (SGPT) 12 [iU]/L (Normal) Range: 0-40 [...] mg/dL (Abnormal) Range: 65-99 :57 LIPID PANEL (89903) Comments: PATIENT WAS FASTINGPERFORMED BY: [facility]Vsjcgh0724 [facility] [id number] LDL Cholesterol Calc 138 mg/dL (Abnormal) Range: 0-99 LDL/HDL Ratio 2.9 {ratio_units} (Normal) Range: 0.0-3.2 HDL Cholesterol 47 mg/dL (Normal) Comments: According to ATP-III Guidelines, HDL-C >59 mg/dL is considered anegative risk factor for CHD. VLDL Cholesterol Peg 29 mg/dL (Normal) Range: 5-40 Cholesterol, Total 214 mg/dL (Abnormal) Range: 100-199 Triglycerides 147 mg/dL (Normal) Range: 0-149 :05 HgA1C , Office (49750) HgA1C , Office 6.5 % (Normal) Range: 4.6 - 7.1 63-Jhu-74637:05 Blood Glucose , Office (57613) Blood Glucose , Office 140 (Normal) :35 MICROALBUMIN: CREATININE RATIO Comments: PATIENT WAS FASTINGPERFORMED BY: [employer] Yeajag6451 [facility] [id number] (57933) AND (93518) Creatinine, Urine 94.9 mg/dL (Normal) Range: 15.0-278.0 Microalb/Creat Ratio 10.7 {mg/g_creat} (Normal) Range: 0.0-30.0 Microalbumin, Urine 10.2 ug/mL (Normal) Range: 0.0-17.0 :35 CBC WITH MANUAL DIFF Comments: PATIENT WAS FASTINGPERFORMED BY: Referron6370 [facility] [id number] Information: [id number] (48527) Baso (Absolute) 0.0 {x10E3/uL} (Normal) Range: 0.0-0.2 [...] PANEL, COMPREHENSIVE Comments: PATIENT WAS FASTINGPERFORMED BY: [facility]Lbbzzq9032 [facility] [id number] (06439) ALT (SGPT) 12 [iU]/L (Normal) Range: 0-40 [...] mg/dL (Abnormal) Range: 65-99 :35 LIPID PANEL (69598) Comments: PATIENT WAS FASTINGPERFORMED BY: [facility]Dzevox8093 [facility] [id number] LDL Cholesterol Calc 103 mg/dL (Abnormal) Range: 0-99 LDL/HDL Ratio 3.0 {ratio_units} (Normal) Range: 0.0-3.2 HDL Cholesterol 34 mg/dL (Abnormal) Comments: According to ATP-III Guidelines, HDL-C >59 mg/dL is considered anegative risk factor for CHD. VLDL Cholesterol Peg 38 mg/dL (Normal) Range: 5-40 Cholesterol, Total 175 mg/dL (Normal) Range: 100-199 Triglycerides 190 mg/dL (Abnormal) Range: 0-149 :31 HgA1C , Office (55150) HgA1C , Office 6.2 % (Normal) Range: 4.6 - 7.1 :31 Blood Glucose , Office (49112) Blood Glucose , Office 113 (Normal) :03 BILAT SCRN DIGITAL & CAD Radiology Report See Note (Normal) Comments: Exam Number: [id number] MAMMOGRAPHY - BILATERAL SCREENING INDICATION:Routine annual screening [...] of attaching a ResultCode to this exam.ADDENDUM: [id number] HPBI/MDS Reported By: BRIAN JIMENEZ M.D. 12-Vil-33778:02 DEXA BONE DENSITY STUDY (HP) Radiology Report See Note (Normal) Comments: Exam Number: [id number] CLINICAL:Assess bone density EXAMINATION:DUAL ENERGY X-RAY ABSORPTIOMETRY / DEXA. TECHNIQUE:Bone Density Measurements (BMD) of left hip and left forearm wereobtained using a [employer] dual energy scanner. [facility]. FINDINGS: Left [...] NIH Osteoporosis and Related Bone Diseases http://www.osteo.org2. Railway Engineer ational Society for Clinical Densitometryhttp://www.iscd.org3. National Osteoporosis Foundation http://www.nof.org Reported By: NELLY LINCOLN M.D. :11 HgA1C , Office (28742) HgA1C , Office 6.2 % (Normal) Range: 4.6 - 7.1 :11 Blood Glucose , Office (95609) Blood Glucose , Office 186 (Normal) :25 TSH (42170) Comments: PATIENT WAS FASTINGPERFORMED BY: [facility]Bwfsvj3857 [facility] [id number] TSH 2.340 {uIU/mL} (Normal) Range: 0.450-4.500 :25 METABOLIC PANEL, COMPREHENSIVE Comments: PATIENT WAS FASTINGPERFORMED BY: LabGaosi Education GroupJefferson Washington [facility])Arfujq5184 [facility] [id number] (28088) ALT (SGPT) 10 [iU]/L (Normal) Range: 0-40 [...] Glucose, Serum 130 mg/dL (Abnormal) Range: 65-99 11-Uqn-99677:25 CBC WITH MANUAL DIFF Comments: PATIENT WAS FASTINGPERFORMED BY: [facility]Fspigt5212 [facility] [id number] Information: ADD DRAW FEE [id number] AND J0 [id number] (83780) Baso (Absolute) 0.0 {x10E3/uL} (Normal) Range: 0.0-0.2 [...] {x10E3/uL} (Normal) Range: 4.0-10.5 :25 LIPID PANEL (76854) Comments: PATIENT WAS FASTINGPERFORMED BY: [facility]6370 [facility] [id number] LDL/HDL Ratio 2.6 {ratio_units} (Normal) Range: 0.0-3.2 Cholesterol, Total 183 mg/dL (Normal) Range: 100-199 HDL Cholesterol 34 mg/dL (Abnormal) Comments: According to ATP-III Guidelines, HDL-C >59 mg/dL is considered anegative risk factor for CHD. LDL Cholesterol Calc 90 mg/dL (Normal) Range: 0-99 Triglycerides 295 mg/dL (Abnormal) Range: 0-149 VLDL Cholesterol Peg 59 mg/dL (Abnormal) Range: 5-40 :02 HgA1C , Office (23776) HgA1C , Office 6.2 % (Normal) Range: 4.6 - 7.1 :02 Blood Glucose , Office (43313) Blood Glucose , Office 152 (Normal) :02 HEPATIC FUNCTION PANEL Comments: PATIENT WAS FASTINGPERFORMED BY: [place] 7794670 [facility] [id number] (70182) Alkaline Phosphatase, S 63 [iU]/L (Normal) Range: 25-165 ALT (SGPT) 13 [iU]/L (Normal) Range: 0-40 AST (SGOT) 14 [iU]/L (Normal) Range: 0-40 Bilirubin, Direct 0.10 mg/dL (Normal) Range: 0.00-0.40 Bilirubin, Total 0.4 mg/dL (Normal) Range: 0.1-1.2 Albumin, Serum 4.6 g/dL (Normal) Range: 3.6-4.8 Protein, Total, Serum 7.0 g/dL (Normal) Range: 6.0-8.5 :02 LIPID PANEL (92225) Comments: PATIENT WAS FASTINGPERFORMED BY: [facility]6370 [facility] [id number] LDL Cholesterol Calc 114 mg/dL (Abnormal) Range: 0-99 LDL/HDL Ratio 3.6 {ratio_units} (Abnormal) Range: 0.0-3.2 HDL Cholesterol 32 mg/dL (Abnormal) Comments: According to ATP-III Guidelines, HDL-C >59 mg/dL is considered anegative risk factor for CHD. Triglycerides 319 mg/dL (Abnormal) Range: 0-149 VLDL Cholesterol Peg 64 mg/dL (Abnormal) Range: 5-40 Cholesterol, Total 210 mg/dL (Abnormal) Range: 100-199 :45 HgA1C , Office (71309) HgA1C , Office 6.2 % (Normal) Range: 4.6 - 7.1 :45 Blood Glucose , Office (45195) Blood Glucose , Office 193 (Normal) :34 MICROALBUMIN: CREATININE RATIO Comments: PATIENT WAS FASTINGPERFORMED BY: CLARITA [employer]6370 [facility] [id number] (47529) AND (69001) Creatinine, Urine 126.3 mg/dL (Normal) Range: 15.0-278.0 Microalb/Creat Ratio 7.6 {mg/g_creat} (Normal) Range: 0.0-30.0 Microalbumin, Urine 9.6 ug/mL (Normal) Range: 0.0-17.0 :34 METABOLIC PANEL, COMPREHENSIVE Comments: PATIENT WAS FASTINGClinical Information: ADD [id number] CC:3302PERFORMED BY: [employer]70 [facility] [id number] (52817) A/G Ratio 1.7 (Normal) Range: 1.1-2.5 Albumin, [...] FUNCTION PANEL Comments: PATIENT WAS FASTINGPERFORMED BY: Referron6370 [facility] [id number] (42733) Bilirubin, Direct 0.08 mg/dL (Normal) Range: 0.00-0.40 :34 LIPID PANEL (45595) Comments: PATIENT WAS FASTINGPERFORMED BY: PicLyflin6370 [facility] [id number] Cholesterol, Total 186 mg/dL (Normal) Range: 100-199 HDL Cholesterol 38 mg/dL (Abnormal) Comments: According to ATP-III Guidelines, HDL-C >59 mg/dL is considered anegative risk factor for CHD. LDL Cholesterol Calc 102 mg/dL (Abnormal) Range: 0-99 LDL/HDL Ratio 2.7 {ratio_units} (Normal) Range: 0.0-3.2 Triglycerides 232 mg/dL (Abnormal) Range: 0-149 VLDL Cholesterol Peg 46 mg/dL (Abnormal) Range: 5-40 44-Dtg-149266:36 HgA1C , Office (63546) HgA1C , Office 6.3 % (Normal) Range: 4.6 - 7.1 06-Opp-789847:36 Blood Glucose , Office (70421) Blood Glucose , Office 129 (Normal) 5-Hlc-595078:12 BILAT SCRN DIGITAL & CAD Radiology Report See Note (Normal) Comments: Exam Number: [id number] MAMMOGRAM, BILATERAL SCREENING DIGITAL AND CAD HISTORY: [...] 1992 (MQSA). The mammograms werealso examined w [facility] computer-aided detection software ([employer], [employer] Reported By: BRIAN JIMENEZ M.D. 55-Lbd-222755:57 HgA1C , Office (20339) HgA1C , Office 6.3 % (Normal) Range: 4.6 - 7.1 76-Slf-223441:57 Blood Glucose , Office (53497) Blood Glucose , Office 111 (Normal) 12-Ecc-39870:40 COMP METABOLIC A/G 1.1 {RATIO} (Normal) Range: [...] for patient's is the eGFRmultiplied by 1.212. [facility] Laboratory uses the abbreviated Modification of [...] Disease W/O Kidney Disease>/= 90 Stage One Acyowq96 - 89 Stage Two Suspect Decreased GFR30 [...] T PROT 7.2 g/dL (Normal) Range: 6.4-8.2 09-Zvr-93487:40 D BILI 0.07 mg/dL (Normal) Range: 0.00-0.30 [...] (Normal) Range: 5-40 :30 HgA1C , Office (04435) HgA1C , Office 6.2 % (Normal) Range: 4.6 - 7.1 :30 Blood Glucose , Office (71886) Blood Glucose , Office 167 (Normal) :33 [...] (Normal) Range: 211-911 :51 HgA1C , Office (96223) HgA1C , Office 5.9 % (Normal) Range: 4.6 - 7.1 :51 Blood Glucose , Office (52685) Blood Glucose , Office 113 (Normal) :49 [...] >240 mg/dL High Risk :01 Urinalysis, Office (22201) UA - BILIRUBIN Negative (Normal) UA - [...] Comments: GLU,2HPPG 75gm GLUC PPG GLUP from 0603:P19073G. 41-Tvs-724821:44 CHEST, PA AND LATERAL Radiology Report See Note (Normal) Comments: Exam Number: [id number] PA AND LATERAL CHEST HISTORY Being done for chest pain. FINDINGSCardiac configuration is upper limits of normal to mildly enlarged.There is mild elevation, left hemid iaphragm. No acute infiltrate,effusion, or pneumothorax is identified. There is moderate spurformation noted in the lower dorsal spine. IMPRESSION1. A number of chronic changes.2. No acute infiltrate. Reported By: COREY MERCER M.D. 49-Nnj-796293:20 URINE HANSA CULTURE-IDENTIFICATN Comments: PATIENT NOT FASTINGClinical Information: ADD [id number] PERFORMED BY: [facility] [facility] [id number] ([id number]) Antimicrobial MIHEAD (Normal) Comments: S = Susceptible; [...] mL (Normal) Urine Final report Culture,Comprehensive (Normal) 44-Wjz-37346:00 CBC With Differential/Platelet Comments: PATIENT NOT FASTINGPERFORMED BY: [facility]6[address] [facility] [id number] Baso (Absolute) 0.1 {x10E3/uL} (Normal) Range: 0.0-0.2 [...] 11.7-15.0 WBC 6.0 {x10E3/uL} (Normal) Range: 4.0-10.5 58-Hwf-35950:00 Comp. Metabolic Panel (14) Comments: PATIENT NOT FASTINGPERFORMED BY: [facility]Uefxlv4249 [facility] [id number] A/G Ratio 1.7 (Normal) Range: 1.1-2.5 Albumin, [...] Serum 116 mg/dL (Abnormal) Range: 65-99 If -Grenadian >60 mL/min (Normal) Range: 60-128 Comments: Note: [...] (Normal) Range: 0.34-4.82 :33 HgA1C , Office (48519) HgA1C , Office 5.2 % (Normal) Range: 4.6 - 7.1 :33 Blood Glucose , Office (45463) Blood Glucose , Office 172 (Normal) :08 FEMUR,2 VIEWS Radiology Report See Note (Normal) Comments: Exam Number: [id number] AP AND LATERAL LEFT TIBIA/FIBULA. HISTORYBeing done [...] Report See Note (Normal) Comments: Exam Number: [id number] AP AND LATERAL LEFT TIBIA/FIBULA. HISTORYBeing done [...] (Normal) Range: 0.34-4.82 :53 HgA1C , Office (83675) Comments: [facility] HgA1C , Office 5.3 % (Normal) Range: 4.6 - 7.1 :53 Blood Glucose , Office (48837) Comments: [facility] Blood Glucose , Office 94 (Normal) :55 [...] Range: 6.4-8.2 :18 Blood Glucose , Office (64899) Blood Glucose , Office 5.6 (Normal) :18 HgA1C , Office (00326) HgA1C , Office 142 % (Abnormal) Range: 4.6 - 7.1 88-Ibf-529907:40 FECAL WBC See Note (Normal) Comments: Precautions*: [...] :00 AMIE 25 U/L (Normal) Comments: COMMENTS: [facility] [place] [address] Webster*: NOT APPLICABLE Range: 25-115 :00 CBCD Comments: COMMENTS: [facility] [place] [address] DR Webster*: NOT APPLICABLE BASO% 0.1 [...] 11.6-14.6 WBC 5.3 K/mm3 (Normal) Range: 4.4-11.0 57-Grb-079097:00 COMP METABOLIC Comments: COMMENTS: BED 7 FASTPrecautions*: NOT APPLICABLE A/G 1.1 {RATIO} (Normal) [...] T PROT 8.0 g/dL (Normal) Range: 6.4-8.2 :00 D BILI 0.14 mg/dL (Normal) Comments: COMMENTS: BED 7 DR Webster*: NOT APPLICABLE Range: 0.00-0.30 :00 LIPASE 141 U/L (Normal) Comments: COMMENTS: BED 7 DR eWbster*: NOT APPLICABLE Range: 114-286 :46 LIVER ALB [...] mg/dL VLDL 50 mg/dL (Abnormal) Range: 5-40 9-Ijn-417119:02 URINALYSIS (82505) URINALYSIS Comments: uNABLE TO PUT RESULTS IN CORRECTLY- RUWBNKZ-WOQUOSGVAWCQ-SZEEZAGNEMX-NEGS.G.-1.149TOUPX-SIKJBEMJTF-6.2SKSYJUW-QWBDUPJQTLX-7.1QCBCUSBE-ZBCWOZHPGFJXTLSQEO-CZPUM (Normal) 9-Vvv-603308:09 HgA1C , Office (72901) HgA1C , Office 5.4 % (Normal) Range: 4.6 - 7.1 5-Ieg-896668:09 Blood Glucose , Office (67268) Blood Glucose , Office 161 (Normal) Plan [...] II, controlled, with no complications CAD in [place] artery : Reviewed Foreign Exchange Clerk Letter Indication: CAD in [place] artery Mixed hyperlipidemia : Cholesterol mgmt Indication: [...] B12 shots montly Indication: Macrocytosis CAD in [place] artery : Reviewed Foreign Exchange Clerk Letter Indication: CAD in [place] artery CAD in [place] artery : Continue Current Prescription(s) Indication: CAD in [place] artery Diabetes mellitus type 2, uncontrolled, without [...] Pulmonary hypertension, moderate to severe : Reviewed Foreign Exchange Clerk Letter Indication: Pulmonary hypertension, moderate to severe [...] S/P laminectomy with spinal fusion : Reviewed Foreign Exchange Clerk Letter Indication: S/P laminectomy with spinal fusion Macrocytosis without anemia : Reviewed Lab Indication: Macrocytosis without anemia Diabetes mellitus type II, controlled, with no complications : Reviewed Diagnostic Tests Indication: Diabetes mellitus type II, controlled, with no complications S/P laminectomy with spinal fusion : Reviewed Foreign Exchange Clerk Letter Indication: S/P laminectomy with spinal fusion [...] pneumonia) CAP (community acquired pneumonia) : Reviewed Foreign Exchange Clerk Letter Indication: CAP (community acquired pneumonia) Sinusitis, bacterial : Eprescribed prescriptions (G8553) Indication: Sinusitis, bacterial Pulmonary hypertension, moderate to severe : Reviewed Diagnostic Tests Indication: Pulmonary hypertension, moderate to severe Nonsmoker : Eprescribed prescriptions (G8553) Indication: Nonsmoker Bronchitis : Reviewed Diagnostic Tests Indication: Bronchitis Bronchitis : Reviewed Foreign Exchange Clerk Letter Indication: Bronchitis Bronchitis : *Antibiotic Usage [...] : FOLLOW [facility] IN 3 DAYS with [facility] Indication: EDEMA, NOS Benign paroxysmal positional vertigo : Reviewed Foreign Exchange Clerk Letter Indication: Benign paroxysmal positional vertigo Acute [...] MONTHS Indication: Mixed hyperlipidemia Planned Observations TSH (76850)Indication: Diabetes mellitus type 2, uncontrolled, without complications On: 8-Hzr-612219:42 Request URINALYSIS, W/ MICRO (27504)Indication: Diabetes mellitus type 2, uncontrolled, without complications On: 2-Ylx-651800:42 Request MICROALBUMIN: CREATININE RATIO (75287) AND (38975)Indication: Diabetes mellitus type 2, uncontrolled, without complications On: :42 Request METABOLIC PANEL, COMPREHENSIVE (84260)Indication: Hypertensive heart disease without heart failure On: :42 Request LIPID PANEL (13047)Indication: Mixed hyperlipidemia On: :42 Request CBC W/AUTO DIFF WBC (66737)Indication: Hypertensive heart disease without heart failure On: :42 Request LIPID PANEL (32461)Indication: Diabetes mellitus type 2, uncontrolled, without complications On: 9-Xix-647606:25 Request CBC WITH MANUAL DIFF (54850)Indication: Elevated platelet count On: 11-Aug-20178:11 Request LIPASE (08793)Indication: Flu-like symptoms On: 0-Ahx-266312:53 Request Comments: stat POTASSIUM SERUM (10125)Indication: Hypokalemia On: 45-Vjk-463838:40 Request MAGNESIUM (15405)Indication: Hypomagnesemia On: 47-Ana-612514:40 Request Renal function Panel (48269)Indication: Hypokalemia On: 30-Ran-000031:48 Request POTASSIUM SERUM (07098)Indication: Hypokalemia (Renamed from Decreased potassium in the blood) On: :06 Request POTASSIUM SERUM (75801)Indication: Hypokalemia (Renamed from Decreased potassium in the blood) On: 50-Pid-572970:55 Request POTASSIUM SERUM (42350)Indication: Hypokalemia On: 0-Tbz-969530:22 Request MAGNESIUM (76520)Indication: Hypokalemia On: 8-Frh-531250:21 Request URINE HANSA CULTURE-JEWELS COL COUNT (49819)Indication: UTI (urinary tract infection), bacterial On: :54 Request MAGNESIUM (17460)Indication: Abdominal pain On: 54-Vfd-191154:45 Request Comments: do in 3 weeks CALCIFEDIOL (71688)Indication: Vitamin D deficiency On: 84-Kea-282002:14 Request LIPID PANEL (00871)Indication: Mixed hyperlipidemia On: 40-Wnh-187466:13 Request VITAMIN B12 AND FOLATES (41750)Indication: B12 deficiency anemia On: 63-Kjo-586085:13 Request TSH (THYROID STIMULATING HORMONE) (51709)Indication: Thyroid Nodule On: 87-Owt-196086:13 Request METABOLIC PANEL, COMPREHENSIVE (16999)Indication: Mixed hyperlipidemia On: 51-Rwl-066356:13 Request CBC WITH MANUAL DIFF (93490)Indication: Hypertensive heart disease without heart failure On: 61-Cww-465790:13 Request MICROALBUMIN: CREATININE RATIO (99926) AND (48542)Indication: Hypertensive heart disease without heart failure On: 90-Fbi-428866:13 Request MYOGLOBIN (10666)Indication: Sweating abnormality On: 73-Uoz-407048:11 Request CPK MB FRACTION (10020)Indication: Sweating abnormality On: 81-Uwh-932630:11 Request ASSAY, TROPONIN, QUANTITATIVE (aka Troponin I) (64502)Indication: Sweating abnormality On: 34-Fne-455156:11 Request METABOLIC PANEL, BASIC (48300)Indication: Hypokalemia (Renamed from Decreased potassium in the blood) On: 28-Ifp-146534:16 Request PARATHORMONE (04076)Indication: Hypocalcemia On: 45-Map-199314:23 Request Magnesium (13709)Indication: Hypokalemia (Renamed from Decreased potassium in the blood) On: 44-Zdl-880864:22 Request CALCIUM, IONIZED (53844)Indication: Hypocalcemia On: 19-Wqz-002932:21 Request VITAMIN B12 AND FOLATES (40592)Indication: Macrocytosis without anemia On: 62-Lxy-527000:39 Request SMEAR+INTERP FLUOR STAIN (73966)Indication: Macrocytosis without anemia On: 90-Zaz-783250:37 Request MICROALBUMIN: CREATININE RATIO (32592) AND (76953)Indication: Hypertensive heart disease without heart failure On: 93-Xkr-927344:16 Request CBC W/AUTO DIFF WBC (64829)Indication: Hypertensive heart disease without heart failure On: 71-Nsj-471173:16 Request METABOLIC PANEL, COMPREHENSIVE (33119)Indication: Hypertensive heart disease without heart failure On: 36-Gqy-341696:16 Request LIPID PANEL (54386)Indication: Mixed hyperlipidemia On: 88-Bcb-306571:16 Request Vitamin D Hydroxy (46363)Indication: Vitamin D deficiency On: 28-Hvy-649862:15 Request VITAMIN B-12 (CYANOCOBALAMIN) (00611)Indication: B12 deficiency anemia On: 85-Rfd-337470:15 Request METABOLIC PANEL, COMPREHENSIVE (13324)Indication: Fatigue On: :07 Request LIPID PANEL (74394)Indication: Mixed hyperlipidemia On: :07 Request VITAMIN B-12 (CYANOCOBALAMIN) (22359)Indication: B12 deficiency anemia On: :07 Request CBC (AUTO) (27582)Indication: B12 deficiency anemia On: :07 Request Vitamin D Hydroxy (96262)Indication: Vitamin D deficiency On: :06 Request HgA1C , Office (79756)Indication: Diabetes mellitus type II, controlled, with no complications On: :55 Request CBC, PLATELETS & MANUAL DIFF (91872)Indication: Hypokalemia (Renamed from Decreased potassium in the blood) On: 6-Xzf-311577:08 Request Comments: recheck before 11-07-14 MICROALBUMIN: CREATININE RATIO (11013) AND (96791)Indication: Proteinuria On: 32-Tee-15969:49 Request VITAMIN B-12 (CYANOCOBALAMIN) (30888)Indication: B12 deficiency anemia On: :56 Request Vitamin D Hydroxy (18602)Indication: Vitamin D deficiency On: :56 Request CBC WITH MANUAL DIFF (01536)Indication: B12 deficiency anemia On: :55 Request METABOLIC PANEL, COMPREHENSIVE (89923)Indication: Hypertensive heart disease without heart failure On: :55 Request LIPID PANEL (71715)Indication: Mixed hyperlipidemia On: :55 Request LIPID PANEL (62493)Indication: Mixed hyperlipidemia On: :31 Request TSH (15980)Indication: Thyroid Nodule On: :31 Request MICROALBUMIN: CREATININE RATIO (77999) AND (73733)Indication: Diabetes mellitus type II, controlled, with no complications On: 04-Jun-20138:31 Request METABOLIC PANEL, COMPREHENSIVE (52280)Indication: Diabetes mellitus type II, controlled, with no complications On: :31 Request URINALYSIS, W/ MICRO (14762)Indication: Proteinuria On: :30 Request Vitamin D Hydroxy (01938)Indication: Vitamin D deficiency On: :30 Request CBC, PLATELETS & AUT DIFF (08603)Indication: B12 deficiency anemia On: :29 Request VITAMIN B-12 (CYANOCOBALAMIN) (05947)Indication: B12 deficiency anemia On: :29 Request HgA1C , Office (30106)Indication: Diabetes mellitus type II, controlled, with no complications On: :03 Request TSH (83652)Indication: Thyroid Nodule On: :39 Request LIPID PANEL (04803)Indication: Mixed hyperlipidemia On: :38 Request CBC WITH MANUAL DIFF (98877)Indication: Diabetes mellitus type II, controlled, with no complications On: :38 Request METABOLIC PANEL, COMPREHENSIVE (76234)Indication: Diabetes mellitus type II, controlled, with no complications On: :38 Request Vitamin D Hydroxy (84901)Indication: Vitamin D deficiency On: :22 Request CBC, PLATELETS & AUT DIFF (72060)Indication: B12 deficiency anemia On: :22 Request VITAMIN B-12 (CYANOCOBALAMIN) (72110)Indication: B12 deficiency anemia On: 54-Rih-90202:22 Request CBC WITH MANUAL DIFF (67478)Indication: Diabetes mellitus type II, controlled, with no complications On: :12 Request METABOLIC PANEL, COMPREHENSIVE (25619)Indication: Diabetes mellitus type II, controlled, with no complications On: 78-Hvv-71346:12 Request HEPATIC FUNCTION PANEL (46076)Indication: Mixed hyperlipidemia On: 08-Med-70950:10 Request LIPID PANEL (04527)Indication: Mixed hyperlipidemia On: 65-Zzr-16129:10 Request VITAMIN B-12 (CYANOCOBALAMIN) (02985)Indication: B12 deficiency anemia On: :02 Request TSH (88821)Indication: Dysthymic disorder On: 68-Qfc-982517:17 Request CREATININE CLEARANCE (57618)Indication: Proteinuria On: 48-Wzo-234342:15 Request 24 hour urine for Protein (99151)Indication: Proteinuria On: 00-Dvv-103907:15 Request VITAMIN B-12 (CYANOCOBALAMIN) (31611)Indication: B12 deficiency anemia On: 42-Zds-061967:15 Request CCP ANTIBODY (39745)Indication: Pain in unspecified joint On: 07-Nov-20119:47 Request LIPID PANEL (35339)Indication: Mixed hyperlipidemia On: 52-Khk-287723:45 Request OVA & PARASITE DIR SMEAR (27231)Indication: Diarrhea On: :52 Request LEUKOCYTE COUNT, FECAL (09458)Indication: Diarrhea On: :52 Request Clostridium difficile Toxin A+B, EIA (10016)Indication: Diarrhea On: :52 Request HANSA CULTURE-STOOL (84861)Indication: Diarrhea On: :52 Request CBC WITH MANUAL DIFF (14563)Indication: Hypertensive heart disease without heart failure On: 61-Egj-376702:11 Request METABOLIC PANEL, COMPREHENSIVE (84811)Indication: Hypertensive heart disease without heart failure On: 93-Zvo-745648:11 Request LIPID PANEL (74574)Indication: Mixed hyperlipidemia On: 99-Wiu-956422:11 Request Influenza B Ag (50758)Indication: Myalgia and myositis On: :06 Request Influenza A Ag (90422)Indication: Myalgia and myositis On: 51-Qtt-27090:06 Request METABOLIC PANEL, COMPREHENSIVE (77623)Indication: Uncomplicated herpes simplex On: 06-Odh-113401:13 Request MICROALBUMIN: CREATININE RATIO (29792) AND (54371)Indication: Abnormal glucose tolerance test On: :32 Request METABOLIC PANEL, COMPREHENSIVE (44332)Indication: Hypertensive heart disease without heart failure On: :32 Request HEPATIC FUNCTION PANEL (05435)Indication: Mixed hyperlipidemia On: :31 Request LIPID PANEL (44619)Indication: Mixed hyperlipidemia On: :31 Request TSH (59434)Indication: Abnormal glucose tolerance test On: 55-Grz-625312:19 Request LIPID PANEL (85267)Indication: Mixed hyperlipidemia On: 14-Cow-681968:15 Request HEPATIC FUNCTION PANEL (39110)Indication: Mixed hyperlipidemia On: 88-Xhy-978603:15 Request METABOLIC PANEL, COMPREHENSIVE (67673)Indication: Hypertensive heart disease without heart failure On: :56 Request HEPATIC FUNCTION PANEL (22574)Indication: Mixed hyperlipidemia On: :56 Request LIPID PANEL (59243)Indication: Mixed hyperlipidemia On: :56 Request MICROALBUMIN: CREATININE RATIO (50531) AND (51787)Indication: Abnormal glucose tolerance test On: :30 Request CBC WITH MANUAL DIFF (16686)Indication: Abnormal glucose tolerance test On: :30 Request VITAMIN B-12 (CYANOCOBALAMIN) (37211)Indication: Tinnitus, unspecified laterality On: :24 Request METABOLIC PANEL, COMPREHENSIVE (82648)Indication: Hypertensive heart disease without heart failure On: :24 Request LIPID PANEL (36347)Indication: Mixed hyperlipidemia On: :24 Request URINALYSIS W/O MICRO (57652)Indication: Hypertensive heart disease without heart failure On: 10-Ugk-667867:12 Request TSH (20242)Indication: Hypertensive heart disease without heart failure On: 09-Upa-532606:12 Request CBC WITH MANUAL DIFF (66258)Indication: Hypertensive heart disease without heart failure On: 33-Zbr-562034:12 Request METABOLIC PANEL, COMPREHENSIVE (10259)Indication: Hypertensive heart disease without heart failure On: 03-Buz-775215:12 Request LIPID PANEL (47208)Indication: Mixed hyperlipidemia On: 15-Kow-995521:12 Request CBC with manual diff (62828)Indication: Pre-operative examination On: 54-Zri-059611:30 Request Metabolic Panel, Comprehensive (83985)Indication: Pre-operative examination On: 48-Zpt-570853:30 Request Urinalysis, Office (45580)Indication: Pre-operative examination On: 50-Xng-506754:29 Request Lipid Panel (29387)Indication: Mixed hyperlipidemia On: 49-Hzk-205354:52 Request Comments: in three months (approximately) TSH (21221)Indication: Hypertensive heart disease without heart failure On: 89-Rvm-15728:52 Request MICROALBUMIN URINE QUANT (40310)Indication: Hypertensive heart disease without heart failure On: :52 Request METABOLIC PANEL, COMPREHENSIVE (28943)Indication: Hypertensive heart disease without heart failure On: :52 Request CBC WITH MANUAL DIFF (58288)Indication: Hypertensive heart disease without heart failure On: 23-Jtb-43266:52 Request HEPATIC FUNCTION PANEL (25865)Indication: Mixed hyperlipidemia On: :52 Request LIPID PANEL (83270)Indication: Mixed hyperlipidemia On: :52 Request HEPATIC FUNCTION PANEL (69366)Indication: Mixed hyperlipidemia On: :54 Request LIPID PANEL (20087)Indication: Mixed hyperlipidemia On: :54 Request TSH (36720)Indication: pruritis On: :37 Request METABOLIC PANEL, COMPREHENSIVE (46279)Indication: pruritis On: :37 Request CBC WITH MANUAL DIFF (31761)Indication: pruritis On: :37 Request LIPID PANEL (29591)Indication: Mixed hyperlipidemia On: :18 Request HEPATIC FUNCTION PANEL (04113)Indication: Mixed hyperlipidemia On: :18 Request HEPATIC FUNCTION PANEL (50131)Indication: Mixed hyperlipidemia On: :14 Request LIPID PANEL (89267)Indication: Mixed hyperlipidemia On: :14 Request Comments: 2mos Planned Encounters Medical; 3 Month FU - On: 24-Aug-2018 7:00 [facility] Margarita Drake DO, DO, Kathleen Planned Procedures ELECTROCARDIOGRAM, COMPLETE (ECG) On: 23-May-2018 Intent (73297)By: Margarita Drake DO Comments: sinus favio no acute chg Margarita GALARZA B 12 Injection, 1000 mcg (J3420)By: On: 23-May-2018 Intent Margarita Drake DO, DO, Comments: b12 1,000mcg/ml 1ml given L deltoid lot#[id number] exp: jg Margarita B 12 Injection, 1000 mcg (J3420)By: On: 26-Mar-2018 Intent Marlyn Roberts LPN Comments: [id number] dltdIMas SCIENCE TUTOR B 12 Injection, 1000 mcg (J3420)By: On: 19-Feb-2018 Intent Sanjay DO, Margarita Albrechtradha GALARZA, Comments: vitamin b12 1000mcg injectionlot: [id number]: 06/2019L DELT IMpt tolerated well Margarita B 12 Injection, 1000 mcg (J3420)By: On: 07-Dec-2017 Intent Rebeca Drake DOhleen Sanjay DO, Comments: 1 ml given lt arm lot [id number] exp 01/20 Margarita B 12 Injection, 1000 mcg (J3420)By: On: 10-Nov-2017 Intent Rebeca Drake DOhleen Sanjay DO, Margarita CHEST XRAY, PA & LATERAL (02620)By: On: 26-Sep-2017 Intent Allyn Manley Aerosol Treatment (40626)By: Khanh On: 13-Sep-2017 Intent Ann Marie MCDANIEL Aerosol Treatment (78772)By: Vineet, On: 07-Sep-2017 Intent Allyn Comments: Lungs clear after aerosol treatment. B 12 Injection, 1000 mcg (J3420)By: On: 15-Aug-2017 Intent Margarita Drake DO, DO, Comments: vitamin b12 1000mcg injectionlot: [id number]: 10/2018L DELT IMpt tolerated wellAD SCIENCE TUTOR Margarita INFUSION, NORMAL SALINE SOLUTION , On: 10-Aug-2017 Intent 1000 CC (Special Coverage Instructions Apply. See MCM: 2048) (J7030)By: Libby Mai DO Toradol Injection, 30 mg (J1885)By: On: 09-Aug-2017 Intent Libby Mai DO Comments: toradol 30mg IV push -per dr. mailot: [id number]: 11/2017IV push in 23g in R ACpt tolerated well. AD SCIENCE TUTOR INFUSION, NORMAL SALINE SOLUTION , On: 09-Aug-2017 Intent 1000 CC (Special Coverage Comments: 23g inserted to R AC per first attemptpt tolerated aabe2509xg NS infusing Instructions Apply. See MCM: 2048) (J7030)By: Stefanie Ghosh XR RIB AND CHEST LEFT (11804)By: Sergei On: 09-Aug-2017 Libby Zavala DO Comments: stat call wet read fall with left anterior inferior rib pain/sob B 12 Injection, 1000 mcg (J3420)By: On: 03-Aug-2017 Intent Visit, Nurse Comments: given - see flowsheet Dose-prefilled syringeRIGHT DLTD, IMgiven by:ANGEL JarrellVIS signed B 12 Injection, 1000 mcg (J3420)By: On: 01-Aug-2017 Intent Margarita Drake DO, DO, Comments: vitamin b12 1000mcg injectionlot: [id number]: 10/2018L DELT IMpt tolerated wellAD SCIENCE TUTOR Margarita B 12 Injection, 1000 mcg (J3420)By: On: 26-Jul-2017 Intent Margarita Drake DO, DO, Comments: vitamin b12 1000mcg injectionlot: [id number]: 10/2018L DELT IMpt tolerated wellAD SCIENCE TUTOR Margarita INTENSIVE BEHAVIORAL THERAPY TO On: 25-Jul-2017 Intent REDUCE CARDIOVASCULAR DISEASE RISK, INDIVIDUAL, QPQO-FU-MPGO, ANNUAL, 15 MINUTES (G0446)By: Margarita Drake DO, DO, Kathleen SCREENING DIGITAL TOMOSYNTHESIS OF On: 25-Jul-2017 Intent BREAST (98936)By: Margarita Drake DO, DO, Kathleen B 12 Injection, 1000 mcg (J3420)By: On: 25-Jul-2017 Intent Margarita Drake DO, DO, Comments: vitamin b12 1000mcg injectionlot: [id number]: 10/2018L DELT IMpt tolerated wellAD SCIENCE TUTOR Margarita Rocephon Injection, 1 Gm (J0696)By: On: 13-Mar-2017 Intent Fast DO, Libby A Radiology - Finger(s) - RightBy: Fast On: 13-Mar-2017 Intent DO Libby A Comments: second finger rule out osteo Aerosol Treatment (74921)By: Sanjay On: 23-Sep-2016 Margarita Zavala DO, DO, Kathleen Comments: albulterol .83%more a/e but more noise- inspir and expir wheeze and junky Bone Density StudyBy: Davian Mccray MD On: 12-Nov-2015 Intent MAMMOGRAM, SCREENING, BOTH BREAST On: 12-Nov-2015 Intent (72358)By: Davian Mccray MD CT - Chest (Without Contrast)By: Shazia On: 05-Nov-2015 Intent Davian ARAGON Comments: low dose DEXA SCAN AXIAL SKELETON (37509)By: On: 29-Oct-2015 Intent Davian Mccray MD Ultrasound - ThyroidBy: Shazia ARAGON, On: 29-Oct-2015 Intent Davian BILATERAL MAMMOGRAMS (79736)By: Shazia On: 29-Oct-2015 Intent Davian ARAGON B 12 Injection, 1000 mcg (J3420)By: On: 06-Feb-2015 Intent Helga Mai DOa A B 12 Injection, 1000 mcg (J3420)By: On: 02-Jan-2015 Intent Fast DO Libby A Comments: lot [id number] exp 11/2015location L armroute imgiven by - lazara SOFIA and/or ABN signed CT - ChestBy: Sergei DO Libby A On: 07-Nov-2014 Intent MAMMOGRAM, SCREENING, BOTH BREAST On: 07-Nov-2014 Intent (53360)By: Sergei GALARZA Libby A B 12 Injection, 1000 mcg (J3420)By: On: 07-Nov-2014 Intent Fast DO Libby A Comments: lot: [id number]: 06/19Dose: 1,000 mcgSite: l dltdLocation; IMby: B 12 Injection, 1000 mcg (J3420)By: On: 08-Oct-2014 Intent Fast DO Libby A Comments: Lot:[id number]:05/20Dose:1mlRoute:IMSite:l armGiven By:RAMÓN signed BILATERAL MAMMOGRAMS (23599)By: Sergei On: 08-Aug-2014 Intent DO Libby A INJECTION, VITAMIN B-12 On: 23-Jun-2014 Intent CYANOCOBALAMIN, UP TO 1000 MCG Comments: lot [id number] 03/19location L armroute imgiven by - msmithVIS and/or ABN signed (Special Coverage Instructions Apply. See [facility]: 45-4 and [facility]: 2049) (J3420)By: Ann Marie Cassidy CNP E B 12 Injection, 1000 mcg (J3420)By: On: 23-May-2014 Intent Fast DO Libby A Comments: lot: [id number]: 05/18site/route: [...] On: 21-Mar-2014 Intent HERMANN (Ankle Brachial Index) (41588)By: On: 10-Feb-2014 Intent Fast DO, Libby A B 12 Injection, 1000 mcg (J3420)By: On: 11-Dec-2013 Intent Fast DO, Libby A Comments: Edgar bolden, [id number] flowsheetMegan CT - ChestBy: Fast DO, Libby A On: 11-Dec-2013 Intent Eprescribed prescriptions (G8553)By: On: 11-Dec-2013 Intent Fast DO, Libby A B 12 Injection, 1000 mcg (J3420)By: On: 30-Oct-2013 Intent Fast DO, Libby A Comments: lot: [id number]: 07/19site/route: Edgar del/IMamt: 1mLVIS signed when applicableRADHA Marte Eprescribed prescriptions (G8553)By: On: 09-Sep-2013 Intent Rachel Leyva ELECTROCARDIOGRAM, COMPLETE (ECG) On: 27-Aug-2013 Intent (72067)By: Ann Marie Cassidy CNP SPECIMEN HNDLNG/TRNSPRT, OFFC > LAB On: 18-Jun-2013 Intent (32939)By: Ann Marie Cassidy CNP MAMMOGRAM, SCREENING, BOTH BREASTS On: 04-Jun-2013 Intent (98262)By: Fast DO, Libby A DXA, BONE DENSITY, AXIAL SKELETON On: 04-Jun-2013 Intent (60742)By: Fast DO, Libby A CT - ChestBy: Fast DO, Libby A On: 04-Jun-2013 Intent B 12 Injection, 1000 mcg (J3420)By: On: 20-May-2013 Intent Yolette Allison LPN Comments: Lot: [id number]: Apr 17Amt: 1mlRoute: IMSite: L deltoidGiven by: ANGEL Merlos B 12 Injection, 1000 mcg (J3420)By: On: 12-Mar-2013 Intent Libby Mai DO Comments: Lot #:[id number] date: mount given: 1mlRoute: IMSite given: left deltoidGiven by: KADY Rehman MAMMOGRAM, SCREENING, BOTH BREASTS On: 01-Feb-2013 Intent (42608)By: Libby Mai DO Comments: end of april CT - ChestBy: Sergei GALARZA Libby A On: 01-Feb-2013 Intent Comments: march or april B 12 Injection, 1000 mcg (J3420)By: On: 01-Feb-2013 Intent Libby Mai DO A Eprescribed prescriptions ([id number])By: On: 01-Feb-2013 Intent Rachel Leyva B 12 Injection, 1000 mcg (J3420)By: On: 30-Oct-2012 Intent Rachel Leyva Comments: Lot:Exp:08/17Lot:[id number]:1mlRoute:imSite:L deltoidGiven by:BMY DXA, BONE DENSITY, AXIAL SKELETON On: 30-Oct-2012 Intent ([id number])By: Libby Mai DO A Eprescribed prescriptions ([id number])By: On: 30-Oct-2012 Intent Rachel Leyva Nuclear Medicine - ThyroidBy: Sanjay On: 24-Sep-2012 Intent , Margarita Sanjay DO, Margarita Esophagram with 13 mmm tabletBy: On: 06-Sep-2012 Intent Sanjay DO, Margarita Sanjay DO, Margarita Eprescribed prescriptions ([id number])By: On: 06-Sep-2012 Intent Allyn Prajapati LPN B 12 Injection, 1000 mcg (J3420)By: On: 30-Jul-2012 Intent Libby Mai DO Comments: Lot #:[id number] date: mount given: 1mlRoute: IMSite given: left deltoidGiven by: KADY Rehman CT - ChestBy: Helga Mai DOa A On: 30-Jul-2012 Intent Ultrasound - ThyroidBy: Sergei GALARZA, On: 30-Jul-2012 Intent Libby A Eprescribed prescriptions ([id number])By: On: 30-Jul-2012 Intent Rachel Leyva Eprescribed prescriptions ([id number])By: On: 05-Jul-2012 Intent Allyn Prajapati LPN MAMMOGRAM, SCREENING, BOTH BREASTS On: 23-Apr-2012 Intent ([id number])By: Libby Mai DO CT - Chest (IV Contrast Needed)By: On: 21-Nov-2011 Intent Libby Mai DO Comments: thi is a follow up CT for abnormal ct chest in april 2011 TDAP VACCINE >7 IM ([id number])By: On: 25-Jul-2011 Intent Rachel Leyva Comments: Lot:[id number]:07/21/13Amt:prefilledRoute:IMSite:left deltGiven By: ANGEL Anthony CT - Abdomen & PelvisBy: Sergei GALARZA, On: 25-Jul-2011 Intent Libby Ballard Comments: stat call wet read FLU VAC, SPLIT, >3 YEARS, INTRAMUSC On: 25-Jul-2011 Intent ([id number])By: Rachel Leyva Comments: pt refuses CT - ChestBy: Libby Mai DO On: 20-Apr-2011 Intent Comments: pe protocol Ultrasound - ThyroidBy: Sergei GALARZA, On: 04-Apr-2011 Intent Libby Ballard Comments: to be done in 6 months Spirometry ([id number])By: Libby Mai DO On: 16-Mar-2011 Intent A Comments: good effort and curve normal Pulse Oximetry ([id number])By: Sergei GALARZA, On: 16-Mar-2011 Intent Libby Ballard Comments: 97% EKG ([id number])By: Libby Mai DO On: 16-Mar-2011 Intent Comments: [...] MAMMOGRAM, SCREENING, BOTH BREASTS On: 17-Jan-2011 Intent ([id number])By: Libby Mai DO Pulse Oximetry ([id number])By: Khanh MCDANIEL, On: 14-Jun-2010 Intent Ann Marie Benitez Aerosol Treatment ([id number])By: Khanh On: 14-Jun-2010 Intent Ann Marie MCDANIEL DXA, BONE DENSITY, AXIAL SKELETON On: 23-Dec-2009 Intent ([id number])By: Libby Mai DO MAMMOGRAM, SCREENING, BOTH BREASTS On: 23-Dec-2009 Intent ([id number])By: Libby Mai DO EKG ([id number])By: Rachel Leyva On: 23-Dec-2009 Intent Comments: ekg- 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 no change normal axis MAMMOGRAM, SCREENING, BOTH BREASTS On: 25-Nov-2008 Intent ([id number])By: Libby Mai DO EKG ([id number])By: Libby Mai DO On: 25-Nov-2008 Intent Comments: ekg showed normal sinus with no lateral t wave inversioon and poor rwave progression- twave inversion anteriolry unchanged Spirometry ([id number])By: Libby Mai DO On: 25-Nov-2008 Intent A Radiology - Chest- PA and LatBy: Sergei On: 25-Nov-2008 Intent Libby GALARZA Pulse Oximetry ([id number])By: Sergei GALARZA, On: 25-Nov-2008 Intent Libby Ballard Bio Z ([id number])By: Libby Mai DO On: 14-May-2008 Intent Comments: [...] Cartwright Comments: leg Breast Screening - BilateralBy: Fast On: 09-Oct-2006 Intent Libby GALARZA Bio Z ([id number])By: Libby Mai DO On: 09-Oct-2006 Intent Comments: high svr and low normal cardiac output- so [facility] Medications INFUSION, NORMAL SALINE SOLUTION , [...] 1000 MCG/ML Injection Solution Ordered: 03-Aug-2017 Pending Visit, Nurse Vitamin B-12 1000 MCG/ML Injection Solution Ordered: 01-Aug-2017 Pending Sanjay DO, Margarita Sanjay DO, Margarita Vitamin B-12 1000 MCG/ML Injection Solution Ordered: 26-Jul-2017 Pending Sanjay DO, Margarita Sanjay DO, Margarita Vitamin B-12 1000 MCG/ML Injection Solution Ordered: 25-Jul-2017 Pending Sanjay DO, Margarita Sanjay DO, Margarita Vitamin B-12 1000 MCG/ML Injection Solution Ordered: 26-Mar-2018 Pending [employer] SCIENCE TUTOR, Marlyn Vitamin B-12 1000 MCG/ML Injection Solution Ordered: 30-Jul-2012 Pending Fast DO, Libby A Vitamin B-12 1000 MCG/ML Injection Solution Ordered: 02-Jan-2015 Pending Fast DO, Libby A Vitamin B-12 1000 MCG/ML Injection Solution Ordered: 07-Nov-2014 Pending Fast DO, Libby A Vitamin B-12 1000 MCG/ML Injection Solution Ordered: 08-Oct-2014 Pending Fast DO, Libby A Vitamin B-12 1000 MCG/ML Injection Solution Ordered: 23-Jun-2014 Pending Khanh MCDANIEL Ann Marie Benitez Vitamin B-12 1000 MCG/ML Injection Solution Ordered: [...] without anemia Hypomagnesemia : DISCONTINUED - MAGNESIUM (67755) Indication: Hypomagnesemia Macrocytosis without anemia : DISCONTINUED - METABOLIC PANEL, BASIC (92515) Indication: Macrocytosis without anemia Nonsmoker : How [...] Mixed hyperlipidemia : DISCONTINUED - LIPID PANEL (06515) Indication: Mixed hyperlipidemia Mixed hyperlipidemia : DISCONTINUED - METABOLIC PANEL, COMPREHENSIVE (20985) Indication: Mixed hyperlipidemia Mixed hyperlipidemia : DISCONTINUED - LIPID PANEL (84624) Indication: Mixed hyperlipidemia Diabetes mellitus type 2, uncontrolled, without complications : DISCONTINUED - METABOLIC PANEL, COMPREHENSIVE (34405) Indication: Diabetes mellitus type 2, uncontrolled, without [...] Advance Directives Name Dates Details Immunization Registry [place] - Effective on Effective: 25-Jul-201707/25/2017. Expiration date [...] failure, Vitamin D deficiency (268.9), CAD in [place] artery [facility] Visit On: [...] severe, Vitamin D deficiency (268.9), CAD in [place] artery [facility] Visit On: [...] bronc hitis, post viral cough-given z-pack and ulnhbwtmpm-Ajqom-bwdxv not feeling good- fatigue, fever, chills, high [...] bowel syndrome, unspecified type, lumbarfusion 3-6 March 11//stimulator, End: 25-Aug-2017 13:28 Spinal stenosis in cervical [...] The patient does have durable power of criminal attorney and living will. The patient has noticed nothing from the geriatic depression scale. Other providers contributing to the patient's care are aquatics assistant department head, gastrologist and paperhanger assistant. Encounter Diagnosis: BMI 26.0-26.9,adult, Hypomagnesemia, Nonsmoker, Pulmonary [...] issues sent to Transitional care unit at [facility]. Saw Dr. Greene in trasitional care, had [...] for xofran.Told it was colitis. Admitted to [facility] and had monitoring then cath found 25% [place] cardio myopthy, placed on carvediolol 6.25mg Recently went to [facility] seen after Nonstemi, and low EF 25% [...] for the procedure will be DR. Darien aDsilva.Encounter Diagnosis: BMI 28.0-28.9,adult, Nonsmoker, Pre-operative general physical examination, End: 03-Nov-2016 12:59 Hypokalemia (Renamed from Decreased potassium in the blood), CAP (community acquired pneumonia), Sepsis with hypotension, Pulmonary hypertension, moderate to severe, Hypomagnesemia, Hypertensive heart disease without heart failure [facility] Office Visit On: 01-Nov-2016 13:07 Encounter Reason: Transition into care - The patient is transitioning into care from a hospital ([facility] 10/23 to 10/27 pneumonia) and a summary [...] - Reason for hospitalization note: (was in [facility] [place] for bronchitis I used all [...] The patient does have durable power of criminal attorney and living will. The patient has noticed lack of energy. Other providers contributing to the patient's care are engagement specialist and other: (eye exam - 1 year [...] the fatigue is because traveling alot for [place] and up late and trial coming upEncounter [...] shot- and she hasnt been back to [facility]- us reviewed and told her to [...] evaluation: Surgery is with Dr. Yepez in [place]- [phone] and fax- [phone]- had stimulator removed- then had mri of [...] pressure (and trying to use hands or senior maintenance technician anything). There is no radiation. Associated symptoms [...] gettin g a stimulator mid march by ro[employer]ane for her back- she is not having [...] bp high and said becuase son in half-way, [ADDITIONAL REASON] Follow up, Laboratory Test Results [...] better- couldnt get insurance to pay for nexium- prilosec works for her- thinks she needs to go back antidepressants - refuses flu and pneumovax, [ADDITIONAL REASON] Follow up, Laboratory Test Results - Date: (06/26/06-flp,liver- on face sheet.). Note for Follow up, Laboratory Test Results: quit ran made her ache but working on diet [...] [facility] End: 31-May-2006 15:22 Payers MedicareCiJacobo ballard guarantor
--- OUTSIDE RECORDS SUMMARY | 2018-10-01 09:31 | XMS RPT_ITS | Continuity of Care Document ---
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: Active Canker sore [...] streudel for braekfast and fish sandwich at [facility] Status: Active Dysphagia, unspecified dysphagia (787.20) Comments: awaiting bx Status: Active Dysthymic disorder (F34.1, 300.4) Status: Active Elevated platelet count (R79.89, 790.6) Status: Active Encounter for annual general medical examination with abnormal findings in adult (Z00.01, V70.0) Status: Active Encounter for screening for malignant neoplasm of colon (Renamed from Special screening for malignant neoplasms, colon) (Z12.11, V76.51) Comments: last scope 03/20 [facility] Status: Active Encounter for screening mammogram [...] d ay (can buy a pedometer at [facility]), -5 days of week of 30 mins [...] 0 days Quantity: 30 {Tablet} Refills: 0 Ordered:30-Jul-2018 Rosanna Nunes Start : 30-Jul-2018 Active Protonix 40 MG Oral Tablet Delayed Release 1 (one) Tablet DR bid for 0 days Quantity: 180 {Tablet} Refills: 3 Ordered:28-Mar-2018 Yanni Drake DO, DO, Kathleen Start : 28-Mar-2018 Active Triamcinolone Acetonide 0.1 % Mouth/Throat Paste apply daily Other - NOS to gums, prn for 0 days Quantity: 1 {Tube} Refills: 2 Ordered:10-Apr-2018 Khanh SQUEEZER OPERATOR, Reema Start : 10-Apr-2018 Active VITAMIN C & E COMBINATION, 291-245KP-HAIN (Oral Capsule) 1 (one) Capsule Capsule qd [...] Quantity: 20 {Tablet} Refills: 0 Ordered:13-Mar-2017 Libby Horn DO Start : 13-Mar-2017 End : 23-Mar-2017 Inactive Ativan 0.5 MG Oral Tablet 1 tab Tablet qd prn for 150 days Quantity: 60 {Tablet} Refills: 0 Ordered:10-Nov-2017 Noelle DOYanni DO, Kathleen Start : 10-Nov-2017 End : 09-Apr-2018 Inactive Comments:Sixty script given to zsgghibL53.0 AUGMENTIN, 875-125MG (Oral Tablet) 1 Tablet bid for 10 days Quantity: 20 {Tablet} Refills: 0 Ordered:17-Apr-2015 Sergei GALARZA Libby Ballard Start : 17-Apr-2015 End : 27-Apr-2015 Inactive [...] days Quantity: 90 {Tablet} Refills: 3 Ordered:26-May-2016 Clark ORTIZ, Halle L Start : 23-Jun-2014 End : [...] Drake DO, DO, Kathleen Start : 04-Jun-2018 End : 04-Jul-2018 Inactive [...] : 28-Jan-2016 End : 07-Feb-2016 Inactive NYSTATIN, 086910LGFO/GM (External Cream) apply Cream bid to affected [...] Start : 25-Oct-2007 Inactive VITAMIN D (ERGOCALCIFEROL), 37592ZPEW (Oral Capsule) 1 Capsule q weekly for [...] Quantity: 60 {Capsule} Refills: 5 Ordered:14-May-2008 Sergei GALARZALibby Start : 14-May-2008 End [...] Quantity: 10 {Vial} Refills: 3 Ordered:02-Sep-2016 Slarb UNARMED SECURITY OFFICER, Marlyn Start : 21-Mar-2014 End : 02-Sep-2016 [...] Quantity: 4 {Tablet} Refills: 0 Ordered:07-Oct-2016 Slarb ANGEL, Marlyn Start : 23-Sep-2016 End : 07-Oct-2016 [...] Quantity: 30 {Tablet} Refills: 3 Ordered:14-Sep-2009 Libby Horn DO Start : 14-Sep-2009 End : 14-Sep-2009 [...] Inactive as of 03-Mar-[address] Horn Status: Inactive as of 11-Mar-2009 Cough (R05, [...] physical examination (Z01.818, V72.83) Comments: ekg at [facility] with records from recent hospitalization Status: [...] (R06.02, 786.05) Comments: See referral letter from [facility] REspiratory scanned document Dr Munguia saw [...] and Obrych, surgical decompression /fusion c3-c6- 2013- [facility] Completed Date Value Details 07-May-2018 Discharge Instruction Result: Comments: See Note; NOTES: [facility] Medical Records Department [address] [place] [address] Discharge Instruction 05/07/18 0931 MR#: [id number] Acct: [id number] Name: Radha MAHARAJ Rep #: [id number] : 1945 72 From: Parminder Blanco MD PCP: Margarita Drake DO Status: DEP ER ED Disposition - Plan for ED Patient: Disposition: Home or Assisted Living Chief Complaint : General Illness Instructions: ED Gastroenteritis Viral Prescriptions: Ondansetron [Zofran Odt] 4 mg PO Q4H PRN PRN #10 tab.rapdis PRN Reason: Nausea Referrals: Noelle,Margarita, DO [Primary Care Provid er] - 1-2 [...] Department Summary Result: Comments: See Note; NOTES: [facility] Medical Records Department [address] [place] [address] Emergency Department Summary 05/07/18 0838 MR#: [id number] Acct: [id number] Name: MAR MAHARAJ Rep #: [id number] : 1945 72 From: Parminder Blanco MD PCP: Margarita Drake DO Status: DEP ER - ER Visit Summary Date of Service: 05/07/18 Chief Complaint: Nausea, vomiting and diarrhea History of Present Illness: The patient is a 72 F has a past medical history of valvular heart disease, hypertension, cholesterol spinal stenosis and multiple surgeries. Patient states she zoran t to [employer] game on Monday. And she developed nausea [...] Dehydration This note was ge nerated with Countdown dictation software. It may contain incorrect words, [...] problems, contact your Primary Care Provider. Call [facility] ([phone]) or report to the closest Emergency Room. Call 911 if necessary. 05/07/18 1545 <Elec tronically signed by Parminder Blanco MD> Date Parminder Blanco MD Cosigner Signature (If Indicated): Date CC: Margarita Drake DO 22-Feb-2018 Downtime Report Result: Comments: See Note; NOTES: [facility] Medical Records Department [address] [place] [address] Downtime Report MR#: [id number] Acct: [id number] Name: MAR MAHARAJ Rep #: [id number] : 1945 72 From: Gilson Washington PCP: Margarita Drake DO Status: REG CLI This patient was seen during an EMR downtime February 05, 2018 - February 12, 2018. This patient may have a combination o f paper and electronic documentation or all paper documentation. All documentation is viewable within the e-chart portion of [employer] for each patient visit. 08-Feb-2018 Spine Lumbar (Routine) Result: Comments: See Note; NOTES: [facility] Imaging Services [address] [place] [address] Spine Lumbar (Routine) MR#: [id number] Acct: [id number] Name: MAR MAHARAJ Rep #: [id number] : 1945 F 72 From: Dylan Donato MD PCP: Margarita Drake DO Status: REG CLI Study: Spine Lumbar (Routine) Date of Exam: 02/08/18 Exam# [id number] Ordering Dr: De Yepez STUDY: MRI LUMBAR [...] , CC: NICO YEPEZ; Margarita Drake DO Managed Services Sales Consultant: Signed 08-Feb-2018 Spine Lumbar without Contrast Result: Comments: See Note; NOTES: [facility] Imaging Services [address] [place] [address] Spine Lumbar without Contrast MR#: [id number] Acct: [id number] Name: MAR MAHARAJ Rep # : [id number] : 1945 F 72 From: Robles Mejia PCP: Margarita Drake DO Status: REG CLI Study: Spine Lumbar without Contrast Date of Exam: 02/08/18 Exam# [id number] Ordering Dr: De Yepez STUDY: C T [...] paraspinous soft tissue structures. ORDE R #: [id number] CT/Spine Lumbar without Contrast IMPRESSION: Multilevel degenerative change discussed above. Hardware as described. Right L3 pedicle screw appears broken. Grade 1 anterolisthesis of L4 on L5. Laminectomies. Demineralization. Electronically Signed: Robles Mejia DO at 10:57 EDT , Service support , CC: DE Drake DO Managed Services Sales Consultant: Signed 09-Jan-2018 Pulmonary Visit Report Result: Comments: See Note; NOTES: [facility] [address] [place] [address] OFFICE VISIT Date of Service: 01/09/18 MR#: [id number] Acct: [id number] Name: MAR HOLLIDAY Rep #: [id number] : 1945 Provider: Adair Wu MD Age/Sex: 72/F Location: [facility] Status: Signed Assessment AND Plan Problems 1. [...] 6 M FU Chief Complaint: Follow up Deputy City Clerk Required: No DME Vendor: [employer] Accompanie d [...] 10/12/17 [History Confirmed 12/03/17] Hydrocodone Bitart/Apap 5-325 [[place] 5MG-325MG] 1 tab PO Q6H PRN PRN 3 Days #10 tab 12/03/17 [Rx] sodium chloride 0.65 % nasal spray aerosol 2 spray INTRANASAL QHS ml 01/09/18 [History Confirmed 01/09/18] PFSH Medical History Hyperlipidemia (Chronic) Elevated blood pressure reading without diagnosis of hypertension (Chronic) 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 (Chronic) Nonrheumatic aortic (valve) [...] Date (if applicable) CC: Ann Marie Cassidy APPLICATION ARCHITECT MANAGER; Margarita Drake 03-Dec-2017 Emergency Department Summary Result: Comments: See Note; NOTES: [facility] Medical Records Department [address] [place] [address] Emergency Department Summary 12/03/17 1656 MR#: [id number] Acct: [id number] Name: MAR MAHARAJ Rep #: [id number] : 1945 72 From: Arya Torrez MD [...] blunt trauma This note was generated with EZBOB dictation software. It may contain incorrect words, spelling, and punctuation that were not noted in review of the chart prior to signing ED Disposition - Plan for ED Patient: Disposition: Home or Assisted Living Chief Complaint: Chest Other Instructions: ED Contusion Vs Minor Fx Rib Prescriptions: Hydrocodone Bitart/Apap 5-325 [[place] 5MG-325MG] 1 tab PO Q6H PRN PRN 3 Days #10 tab PRN Reason: Alena n Referrals: Margarita Drake, [Primary Care Provider] - 1 Week if not improving What to do if you have Problems For any increased pain, shortness of breath, bleeding, nausea or vomiting, chest pa in, or any unexpected problems, contact your Primary Care Provider. Call [facility] ([phone]) or report to the closest Emergency Room. Call 911 if necessary. 12/03/17 1706 <Electron ically signed by Arya Torrez MD> Date Arya Torrez MD Cosigner Signature (If Indicated): Date CC: Margarita Drake DO 03-Dec-2017 Chest PA and Lateral Result: Comments: See Note; NOTES: [facility] Imaging Services [address] [place] [address] Chest PA and Lateral MR#: [id number] Acct: [id number] Name: MAR MAHARAJ Rep #: [id number] : 1945 F 72 From: Lotus Anthony MD PCP: Margarita Drake DO Status: DEP ER Study: Chest PA and Lateral Date of Exam: 12/03/17 Exam# [id number] Ordering Dr: Arya Torrez MD STUDY: X-RAY [...] CC: Margarita Drake DO; Arya Torrez MD Managed Services Sales Consultant: Signed 18-Oct-2017 SCREENING MAMM (CAD), BILAT Result: Comments: See Note; NOTES: [facility] Imaging Services [address] [place] [address] SCREENING MAMM (CAD), BILAT MR#: [id number] Acct: [id number] Name: MAR MAHARAJ Rep #: [id number] : 1945 F 72 From: Florian Valenzuela MD PCP: Margarita Drake DO Status: REG CLI Study: SCREENING MAMM (CAD), BILAT Date of Exam: 10/18/17 Exam# [id number] Ordering Dr: Alysia Drake DO MAMMOGRAPHY - [...] 19, 2015 and November 17, 2014. FINDINGS: [place] [facility] Composition: There are scattered areas of [...] delay biopsy of a clinically suspicious abnormality. [id number] Electronically Signed: Florian Howard i, MD at 13:51 EST Tel [phone], Service support , CC: Margarita Drake DO Managed Services Sales Consultant: Signed 13-Oct-2017 Cardiology Visit Report Result: Comments: See Note; NOTES: [facility] [address] [place] [address]. [address] [place] [address] OFFICE VISIT Date of Service: 10/13/17 MR#: [id number] Acct: [id number] Name: MAR MAHARAJ Rep #: [id number] : 1945 Provider: Sergio Lawler MD Age/Sex: 72/F Location: [facility] Status: Signed HPI HPI Chief Complaint: [...] reading without diagnosis of hypertension (Chronic) Other termite treater (current) drug ther apy (Chronic) Nonrheumatic aortic (valve) insufficiency (Chronic) Nonrheumatic tricuspid (valve) insufficiency (Chronic) Other secondary pulmonary hypertension (Chronic) Nonischemic cardiomyopathy (Top Carrier deangelo) Fatigue (Chronic) Hx pulmonary embolism (Resolved) [...] AND Plan 1. Coronary artery disease involving kaibab coronary artery of kaibab heart without angina pectoris I25.10 Mild Plan [...] vis,est,level 3 Diagnoses Coronary artery disease involving kaibab coronary artery of kaibab heart without angina pectoris I25.10 Coronary Disease-Associated Artery/Lesion type: kaibab artery [place] vs. transplanted heart: kaibab heart Associated angina: without angina Essential hyperten tamika I10 Hypertension type: essential hypertension Coding Level of Care Code Off vis,est,level 3 Diagnoses Coronary artery disease involving kaibab coronary artery of kaibab heart without angina pect wilber I25.10 Coronary Disease-Associated Artery/Lesion type: kaibab artery [place] vs. transplanted heart: kaibab heart Associated angina: without angina Essential hypertension I10 Hypertension type: esse ntial hypertension 10/13/17 1546 <Electronically signed by Sergio Lawler MD> Date Sergio Lawler MD Cosigner Signature: Date _ (if applicable) CC: Margarita Drake DO 26-Sep-2017 Chest PA and Lateral Result: Comments: See Note; NOTES: [facility] Imaging Services [address] [place] [address] Chest PA and Lateral MR#: [id number] Acct: [id number] Name: MAR MAHARAJ Rep #: [id number] : 1945 F 72 From: Quinn Pringle PCP: Margarita Drake DO Status: REG CLI Study: Chest PA and Lateral Date of Exam: 09/26/17 Exam# [id number] Ordering Dr: Allyn Manley APPLICATION ARCHITECT MANAGER-C STUDY: X-RAY C HEST REASON FOR EXAM: [...] , CC: HUANG Manley; Margarita Drake DO Managed Services Sales Consultant: Signed 22-May-2017 History and Physical Exam Result: Comments: See Note; NOTES: [facility] Medical Records Department [address] [place] [address] History and Physical 05/22/17 1809 MR#: [id number] Acct: [id number] Name: RUDY MAHARAJ Rep #: [id number] : 1945 71 From: Edward Chao DO [...] knee (Chronic) Sinusitis, chronic (Chronic) Takotsubo cardiomyopathy (Top Carrier deangelo) chairi malformations/p posterior decompr (Chronic) Allergies [...] 7 back surgeries Psychiatric History: Anxiety, Depression [employer] History: ovarian cancer - Status post bilateral [...] with seeing her pain management doctor, Dr. Betst. * She had prescription for morphine sulfate [...] Department Summary Result: Comments: See Note; NOTES: [facility] Medical Records Department [address] [place] [address] Emergency Department Summary 05/22/17 1707 MR#: [id number] Acct: [id number] Name: MAR MAHARAJ Rep #: [id number] : 1945 71 From: Angelo William MD [...] your Primary Care Provider. Call [facility] ([phone]) or report to the closest Emergency Room. Call 911 if necessary. 05/22/17 1710 <Electronically signed by Angelo William MD> Date Angelo William MD Cosigner Signature (If Indicated): Date CC: Ann Marie Cassidy 22-May-2017 Brain/Head without Contrast Result: Comments: See Note; NOTES: [facility] Imaging Services [address] [place] [address] Brain/Head without Contrast MR#: [id number] Acct: [id number] Name: MAR MAAHRAJ Rep #: [id number] : 1945 F 71 From: Dorothy Barber MD PCP: Ann Marie Cassidy Status: REG ER Study: Brain/Head without Contrast Date of Exam: 05/22/17 Exam# [id number] Ordering Dr: Angelo William MD STUDY : [...] CC: Ann Marie Cassidy; Angelo William MD Managed Services Sales Consultant: Signed 22-May-2017 Chest 1 View (Portable) Result: Comments: See Note; NOTES: [facility] Imaging Services [address] [place] [address] Chest 1 View (Portable) MR#: [id number] Acct: [id number] Name: MAR MAHARAJ Rep #: [id number] : 1945 F 71 From: Dorothy Barebr MD PCP: Ann Marie Cassidy Status: REG ER Study: Chest 1 View (Portable) Date of Exam: 05/22/17 Exam# [id number] Ordering Dr: Angelo William MD STUDY: X-RAY [...] CC: Ann Marie Cassidy; Angelo William MD Managed Services Sales Consultant: Signed 17-May-2017 Emergency Department Summary Result: Comments: See Note; NOTES: [facility] Medical Records Department [address] [place] [address] Emergency Department Summary 05/17/17 1543 MR#: [id number] Acct: [id number] Name: MAR MAHARAJ Rep #: [id number] : 1945 71 From: Tab Peacock MD [...] problems, contact your Primary Care Provider. Call [facility] ([phone]) or report to the closest Emergency Room. Call 911 if necessary. 05/17/17 1652 <Electronically signed b austin Peacock MD> Date Tab Peacock MD Cosigner Signature (If Indicated): Date CC: Ann Marie Cassidy 28-Apr-2017 Emergency Department Summary Result: Comments: See Note; NOTES: [facility] Medical Records Department [address] [place] [address] Emergency Department Summary 04/28/17 1059 MR#: [id number] Acct: [id number] Name: MAR MAHARAJ Rep #: [id number] : 1945 71 From: Tab Peacock MD [...] Primary Care Provider. Call [facility] ([phone]) or report to the closest Emergency Room. Call 911 if necessary. 04/28/17 1306 <Electronically signed by Tab Peacock MD> Date Tab Peacock MD Cosigner Signature (If Indicated): Date CC: Ann Marie Cassidy 28-Apr-2017 Chest 1 View (Portable) Result: Comments: See Note; NOTES: [facility] Imaging Services [address] [place] [address] Chest 1 View (Portable) MR#: [id number] Acct: [id number] Name: MAR MAHARAJ Rep #: [id number] : 1945 F 71 From: Sekou Bose DO PCP: Ann Marie Cassidy Status: REG ER Study: Chest 1 View (Portable) Date of Exam: 04/28/17 Exam# [id number] Ordering Dr: Tab Peacock MD STUDY: X-RAY [...] CC: Ann Marie Cassidy; Tab Peacock MD Managed Services Sales Consultant: Signed 12-Apr-2017 Echocardiogram Complete Result: Comments: See Note; NOTES: [facility] Cardiovascular Services [address] [place] [address] Echo Complete 04/12/17 1150 MR#: [id number] Acct: [id number] Name: MAR MAHARAJ Rep #: [id number] : 1945 71 From: Sergio Lawler MD Attending Dr: Nuris ARAGON,Sergio Status: REG CLI Ordering Dr: Sergio Lawler MD Date: 04/12/17 Location: [facility] Sex: F C Admitted: Reason For Study: [...] Date Sergio Lawler MD CC: Ann Marie Pennynury; Sergio Lawler MD Date Dictated: 04/12/17 1 150 Date Transcribed: 04/12/171648 Managed Services Sales Consultant: Signed 13-Mar-2017 Finger(s) Min 2 Views Result: Comments: See Note; NOTES: [facility] Imaging Services [address] [place] [address] Verdana 4d Finger(s) Min 2 Views MR#: [id number] Acct: [id number] Name: MAR MAHARAJ Katy p #: [id number] : 1945 F 71 From: Maldonado Pablo DO PCP: Ann Marie Cassidy Status: REG CLI Study: Finger(s) Min 2 Views Date of Exam: 03/13/17 Exam# [id number] Ordering Dr: Libby Horn DO STUDY: X-RA Y - RIGHT HAND, [...] Maldonado Pablo DO at 22:01 EDT Tel [phone], Service support , CC: Ann Marie Horn DO Managed Services Sales Consultant: Signed 15-Feb-2017 Cerv Spine 4 or 5 Views Result: Comments: See Note; NOTES: [facility] Imaging Services [address] [place] [address] Verdana 4d Cerv Spine 4 or 5 Views MR#: [id number] Acct: [id number] Name: MAR MAHARAJ Rep #: [id number] : 1945 F 71 From: Vitaly Turner MD PCP: Ann Marie Cassidy Status: REG CLI Study: Cerv Spine 4 or 5 Views Date of Exam: 02/15/17 Exam# [id number] Ordering Dr: De Yepez STUDY: X -RAY [...] Service support , CC: Ann Marie YEPEZ Managed Services Sales Consultant: Signed 14-Feb-2017 Spine Lumbar (Routine) Result: Comments: See Note; NOTES: [facility] Imaging Services [address] [place] [address] Anju 4d Spine Lumbar (Routine) MR#: [id number] Acct: [id number] Name: MAR MAHARAJ ep #: [id number] : 1945 F 71 From: Dylan Donato MD PCP: Ann Marie Cassidy Status: REG CLI Study: Spine Lumbar (Routine) Date of Exam: 02/14/17 Exam# [id number] Ordering Dr: Abdiel Betts MD LORENA DY: [...] CC: Ann Marie Cassidy; Abdiel Betts MD Managed Services Sales Consultant: Signed 22-Jan-2017 Abdomen/Pelvis without Cont Result: Comments: See Note; NOTES: [facility] Imaging Services [address] [place] [address] Verdana 4d Abdomen/Pelvis without Cont MR#: [id number] Acct: [id number] Name: JOHN MAHARAJ Rep #: [id number] : 1945 F 71 From: Jeb Piedra MD PCP: Ann Marie Cassidy Status: REG ER Study: Abdomen/Pelvis without Cont Date of Exam: 01/22/17 Exam# [id number] Ordering Dr: Stacy Corey MD STUDY: CT [...] CC: Ann Marie Cassidy; Noelle Corey MD Managed Services Sales Consultant: Signed 25-Dec-2016 Venous Duplex Lower Extremity Result: Comments: See Note; NOTES: [facility] Cardiovascular Services [address] [place] [address] Venous Duplex US, Unilateral 12/23/16 1042 MR#: [id number] Acct: [id number] Name: MAR DEAN Rep #: [id number] : 1945 71 From: David Hawhtorne MD Attending Dr: Glenn Ro Status: REG [...] Date Dictated: 12/23/16 1042 Date Transcribed: 12/25/161936 Managed Services Sales Consultant: Signed 19-Dec-2016 Chest 1 View (Portable) Result: Comments: See Note; NOTES: [facility] Imaging Services [address] [place] [address] Verdana 4d Chest 1 View (Portable) MR#: [id number] Acct: [id number] Name: MAR MAHARAJ Rep #: [id number] : 1945 F 71 From: Alfa Bettencourt MD PCP: Ann Marie Cassidy Status: REG ER Study: Chest 1 View (Portable) Date of Exam: 12/19/16 Exam# [id number] Ordering Dr: Edin Rodriguez MD STUDY: X- [...] CC: Ann Marie Cassidy; Edin Rodriguez MD Managed Services Sales Consultant: Signed 19-Dec-2016 Abdomen/Pelvis without Cont Result: Comments: See Note; NOTES: [facility] Imaging Services [address] [address] Verdana 4d Abdomen/Pelvis without Cont MR#: [id number] Acct: [id number] Name: JOHN MAHARAJ Rep #: [id number] : 1945 F 71 From: Alfa Bettencourt MD PCP: Ann Marie Cassidy Status: REG ER Study: Abdomen/Pelvis without Cont Date of Exam: 12/19/16 Exam# [id number] Ordering Dr: Edin Rodriguez MD S KARINEDY: [...] CC: Ann Marie Cassidy; Edin Rodriguez MD Managed Services Sales Consultant: Signed 15-Dec-2016 Emergency Department Summary Result: Comments: See Note; NOTES: [facility] Medical Records Department [address] [place] [address] Emergency Department Summary MR#: [id number] Acct: [id number] Name: JOHN MAHARAJ Rep #: [id number] : 1945 71 From: Shon Amaya MD [...] pain SHON AMAYA MD T: RUFUS JOB: [id number] 12/15/16 1522 <Electronically signed by Shon Amaya MD> Date Shon Amaya MD Cosigner Signature (If Indicated): Date CC: Ann Marie Cassidy Date Dictated: 12/13/162342 Date Transcribed: 12/13/162342 Managed Services Sales Consultant: Signed 15-Dec-2016 12 Lead Electrocardiogram Result: Comments: See Note; NOTES: [facility] Cardiovascular Services [address] [place] [address] 12 Lead EKG 12/13/161602 MR#: [id number] Acct: [id number] Name: CAROL ANNMAR S Re p #: [id number] : 1945 71 From: Astrid Merlos MD [...] undetermined Abnormal ECG Confirmed by ASTRID MERLOS ([id number]), electronic news gathering editor CHRISTIAN WASHINGTON ([id number]) on 017 1:15:30 PM Referred By: JOSE LUIS Confirmed By:ASTRID MERLOS 12/15/16 1315 Date Astrid Merlos MD CC: Ann Marie Cassidy Date Dictated: 12/13/16 1603 Date Transcribed: 12/13/16 160 Managed Services Sales Consultant: Signed 14-Dec-2016 Venous Duplex Lower Extremity Result: Comments: See Note; NOTES: [facility] Cardiovascular Services [address] [place] [address] Venous Duplex US, Unilateral 12/13/16 1612 MR#: [id number] Acct: [id number] Name: MAR DEAN Rep #: [id number] : 1945 71 From: Rj Cleary MD [...] MD Date Dictated: 12/13/16 1612 Date Transcribed: 12/14/16 0603 Managed Services Sales Consultant: Signed 13-Dec-2016 Discharge Instruction Result: Comments: See Note; NOTES: [facility] Medical Records Department [address] [place] [address] Discharge Instruction 12/13/16 190 MR#: [id number] Acct: [id number] Name: CAROL ANNRadha WEBBDEION Muñoz Rep #: [id number] : 1945 71 From: Shon Amaya MD PCP: Ann Marie Cassidy Status: DEP ER ED Disposition - Plan for ED Patient: Disposition: Home or Assisted Living Chief Complaint: Lower E xtremity Injury Instructions: ED Diet Vomiting Diarrhea Prescriptions: Ondansetron [Zofran Odt] 4 mg PO Q8H PRN PRN #15 tablet PRN Reason: Nausea Referrals: nAn Marie Cassidy [Primary Care Provider] - 1-2 [...] your Primary Care Provider. Call Doctors Registry ([phone]) or report to the closest Emergency Room. Call 911 if necessary. 12/13/162044 <Electronically signed by Shon Amaya MD&amp ;#62; Date Shon Amaya MD Cosigner Signature (If Indicated): Date CC: Ann Marie Cassidy 13-Dec-2016 Chest 1 View (Portable) Result: Comments: See Note; NOTES: [facility] Imaging Services [address] [place] [address] Verdana 4d Chest 1 View (Portable) MR#: [id number] Acct: [id number] Name: MAR MAHARAJ Rep #: [id number] : 1945 F 71 From: Trent Arias MD PCP: Ann Marie Cassidy Status: REG ER Study: Chest 1 View (Portable) Date of Exam: 12/13/16 Exam# [id number] Ordering Dr: Shon Amaya MD STUDY: X-RAY [...] MD at 17:07 EDT , Service support [phone], CC: Ann Marie Cassidy; Shon Amaya MD Managed Services Sales Consultant: Signed 13-Dec-2016 Abdomen/Pelvis W IV Cont ONLY Result: Comments: See Note; NOTES: [facility] Imaging Services [address] [place] [address] Verdana 4d Abdomen/Pelvis W IV Cont ONLY MR#: [id number] Acct: [id number] Name: LILI MAHARAJ Rep #: [id number] : 1945 F 71 From: Trent Arias MD PCP: Ann Marie Cassidy Status: REG ER Study: Abdomen/Pelvis W IV Cont ONLY Date of Exam: 12/13/16 Exam# [id number] Ordering Dr: Shon Amaya MD STUDY: CT [...] MD at 18:25 EDT , Service support [phone], CC: Ann Marie Cassidy; Shon Amaya MD Managed Services Sales Consultant: Signed 15-Nov-2016 History and Physical Exam Result: Comments: See Note; NOTES: [facility] Medical Records Department [address] [place] [address] History and Physical 11/09/16 1003 MR#: [id number] Acct: [id number] Name: Radha MAHARAJ Rep #: [id number] : 1945 71 From: Glenn Ro PCP: Ann Marie Cassidy Status: PRE IN Location: [facility] DATE OF SERVICE: 11/22/2016 This is [...] hip arthroplasty in 2003, Dr. Darien Avina, [facility]. 2. Hysterectomy. 3. Appendectomy. 4. Cholec ystectomy. 5. Brain surgery x2 Arnold-Chiari malformation. 6. Carpal tunnel bilaterally. 7. Cervical surgery, December 2013 at [place]. 8. Right total knee arthroplasty on August 19, 2014, Dr. Darien Avina , [facility]. 9. Laminectomy 2000, instrumentation lumbar fusion. 10. Right total hip arthroplasty in 2013, revision assistive devices. The patient admits to full upper dentures. Denies glasses or hearing aids. SOCIAL HISTORY: The patient is retired, works part-time. Denies tobacco use, denies alcohol use, denies illicit drug use. REVIEW OF SYSTEMS: Documented in the [facility] medical hi story sheet, please [...] of left knee dated October 17, 2016, [facility], weightbearing, AP, tunnel, sunrise, lateral views with [...] the hospital. YADIRA Narvaez T: RUFUS JOB: [id number] 11/15/16 0839 <Electronically signed by Glenn Ro > Date: Time: Glenn Ro CC: Ann Marie Cassidy; Glenn Ro Date Dictated: 11/09/16 1003 Date Transcribed: 7 1003 Managed Services Sales Consultant: Signed ____ I have re-examined the patient. There are no clinical changes since date of exam. ____ See Progress Notes for Changes ____ Dictated on Admission Date: ___ Time: Signature: 24-Oct-2016 History and Physical Exam Result: Comments: See Note; NOTES: [facility] Medical Records Department [address] [place] [address] History and Physical 10/19/16 1537 MR#: [id number] Acct: [id number] Name: Radha MAHARAJ Rep #: [id number] : 1945 71 From: Glenn Ro PCP: Ann Marie Cassidy Status: PRE IN Location: [facility] DATE OF SERVICE: 10/25/2016 This is [...] a previous right total knee arthroplasty in [facility] er 2013, is very pleased [...] arthroplasty i n 2003, Dr. Darien Avina, [facility]. 2. Hysterectomy. 3. Appendectomy. 4. Cholecystectomy. 5. Brain surgery x2. Arnold-Chiari malformation. 6. Carpal tunnel bilaterally. 7. Cervical surgery in ril 2013 in [place]. 8. Right total knee arthroplasty on August 19, 2014, Dr. Darien Avina, [facility]. 9. Laminectomy 2001 instrumentation, lumbar fusion. 10. Right total hip arthroplasty in 2013 , revision. ASSISTIVE DEVICES: The patient admits to full upper dentures. Denies glasses or hearing aids. SOCIAL HISTORY: The patient is retired, but works part-time. She denies tobacco use, denies al cohol use, denies illicit drug use. REVIEW OF SYSTEMS: Documented in the [facility] medical history sheet. Please refer [...] X-rays of l eft knee dated 10/17/2016, [facility], weightbearing, AP, tunnel, [...] Ro Date Dictated: 10/19/161536 Date Transcribed: 10/19/161536 Managed Services Sales Consultant: Toni rodriguezed ____ I have re-examined the patient. There are no clinical changes since date of exam. ____ See Progress Notes for Changes ____ Dictated on Admission Date: Time: Sig nature: 23-Oct-2016 Chest PA and Lateral Result: Comments: See Note; NOTES: [facility] Imaging Services [address] [place] [address] Verdana 4d Chest PA and Lateral MR#: [id number] Acct: [id number] Name: MAR MAHARAJ Rep #: [id number] : 1945 F 71 From: Heraclio Meredith MD PCP: Ann Marie Cassidy Status: PRE ER Study: Chest PA and Lateral Date of Exam: 10/23/16 Exam# [id number] Ordering Dr: Edin Horton MD STUDY: X-RAY [...] MD at 14:44 EST , Service support [phone], CC: Mary Cassidy; Edin Horton MD Managed Services Sales Consultant: Signed 23-Sep-2016 Echocardiogram Complete Result: Comments: See Note; NOTES: [facility] Cardiovascular [address] [address] Echo Complete 09/23/16 1311 MR#: [id number] Acct: [id number] Name: MAR MAHARAJ Rep #: [id number] : 1945 71 From: Sergio Lawler MD [...] Dictated: 09/23/16 1311 Date Transcribed: 09/23/16 1521 Managed Services Sales Consultant: Signed 21-Sep-2016 12 Lead Electrocardiogram Result: Comments: See Note; NOTES: [facility] Cardiovascular Services [address] [place] [address] 12 Lead EKG 09/18/16 1204 MR#: [id number] Acct: [id number] Name: MAR MAHARAJ Katy p #: [id number] : 1945 71 From: Cade Harrison MD [...] ECG Confirmed by OMAR ARAGON, CADE ([id number]), electronic news gathering editor CHRISTIAN WASHINGTON ([id number]) on 09/21/2016 1:40:15 PM Referred By: FLORIN Confirmed By:CADE HARRISON MD 09/21/16 0580 Date Cade Harrison MD CC: Ann Marie Cassidy Date Dictated: 09/18/16 1204 Date Transcribed: 09/18/16 1204 Managed Services Sales Consultant: Signed 20-Sep-2016 Emergency Department Summary Result: Comments: See Note; NOTES: [facility] Medical Records Department [address] [place] [address] Emergency Department Summary MR#: [id number] Acct: [id number] Name: JOHN MAHARAJ Rep #: [id number] : 1945 71 From: Edin Rodriguez MD PCP: Ann Marie Csasidy Status: DEP ER DATE OF SERVICE: 09/18/2016 [...] C: Ann Marie Cassidy T: NTS JOB: [id number] 09/20/16 1522 <Electronically signed by Edin Rodriguez MD> Date __ Edin Rodriguez MD Cosigner Signature (If Indicated): Date CC: Ann Marie Cassidy Date Dictated: 09/18/16 1339 Date Trans cribed: 09/18/16 133 Managed Services Sales Consultant: Signed 18-Sep-2016 Discharge Instruction Result: Comments: See Note; NOTES: [facility] Medical Records Department [address] [place] [address] Discharge Instruction 09/18/16 1334 MR#: [id number] Acct: [id number] Name: Radha MAHARAJ Rep #: [id number] : 1945 71 From: Edin Rodriguez MD [...] problems, contact your Primary Care Provider. Call [facility] ([phone]) or report to the closest Emergency Room. Call 911 if necessary. 09/18/16 1336 & #60;Electronically signed by Edin Rodriguez MD> Date Edin Rodriguez MD Cosigner Signature (If Indicated): Date CC: Ann Marie Pennynury 18-Sep-2016 Chest PA and Lateral Result: Comments: See Note; NOTES: [facility] Imaging Services [address] [place] [address] Verdana 4d Chest PA and Lateral MR#: [id number] Acct: [id number] Name: CAROL ANNJOHN ADKINSNellie Muñoz Rep #: [id number] : 1945 F 71 From: Rolly Aviles MD PCP: Ann Marie Cassidy Status: REG ER Study: Chest PA and Lateral Date of Exam: 09/18/16 Exam# [id number] Ordering Dr: Edin Rodriguez MD STUDY: X-RAY [...] 13:29 EST Te l , Service support [phone], CC: Ann Marie Cassidy; Edin Rodriguez MD Managed Services Sales Consultant: Signed 17-Aug-2016 Knee 4 or More Views Result: Comments: See Note; NOTES: [facility] Imaging Services [address] [place] [address] Verdana 4d Knee 4 or More Views MR#: [id number] Acct: [id number] Name: MAR MAHARAJ Rep #: [id number] : 1945 F 71 From: Florian Valenzuela MD PCP: Davian Mccray Status: REG CLI Study: Knee 4 or More Views Date of Exam: 08/17/16 Exam# [id number] Ordering Dr: Gemma Nina MD STUD Y: [...] Florian Valenzuela MD at 15:48 EST Tel [phone], Service support [phone], CC: Tejal Mccray; Gemma Nina MD Managed Services Sales Consultant: Signed 17-Aug-2016 Tibia AND Fibula 2 Views Result: Comments: See Note; NOTES: [facility] Imaging Services [address] [place] [address] Verdana 4d Tibia AND Fibula 2 Views MR#: [id number] Acct: [id number] Name: MAR MAHARAJ Rep #: [id number] : 1945 F 71 From: Florian Valenzuela MD PCP: Davian Mccray Status: REG CLI Study: Tibia AND Fibula 2 Views Date of Exam: 08/17/16 Exam# [id number] Ordering Dr: Gemma Nina STUDY: X-RAY - [...] Florian Valenzuela MD at 15:42 EST Tel [phone], Service support [phone], CC: Davian Nina MD Managed Services Sales Consultant: Signed 01-Jul-2016 Venous Duplex Lower Extremity Result: Comments: See Note; NOTES: [facility] Cardiovascular Services [address] [place] [address] Venous Duplex US, Unilateral 07/01/16 0850 MR#: [id number] Acct: [id number] Name: MAR MAHARAJ Rep #: [id number] : 1945 70 From: David Hawthorne MD Attending Dr: Luly Noriega APPLICATION ARCHITECT MANAGER Status: REG CLI Ordering Dr: Luly Noriega APPLICATION ARCHITECT MANAGER-C Date: 07/01/16 Location: [facility] Sex: F C [...] called and/or faxed augmentation. to Luly Noriega APPLICATION ARCHITECT MANAGER @ 9:20 am @ [facility] is [...] 1939 Date David Hawthorne MD CC: Luly Luzjosephine Hernandezmary Date Dictated: 07/01/16 0850 Date Transcribed: 07/01/161936 Managed Services Sales Consultant: Signed 07-Jun-2016 6 Minute Walk Test Result: Comments: See Note; NOTES: [facility] Pulmonary Services/Neurology [address] [place] [address] MR#: [id number] Acct: [id number] Name: MAR MAHARAJ Rep #: [id number] : 1945 70 From: Adair Wu MD Referring Dr: Luly Noriega NP Date: Ordering Dr: Sex: F C Location: PSN PSN 6 Minute Walk Test - 6 Minute Walk Test 6 Minute Walk Test: 6 Minute Walk Test PSN:6-Minute Walk Test Start: 06/07/16 11:18 Freq: Status: Active Document 06/07/16 11:18 REK (Rec: 06/07/16 11:21 REK [id number]) 6 Minute Walk Test Date Performed 06/07/16 [...] CC: Date Dictated: 06/07/161540 Date Transcribed: 06/07/161540 Managed Services Sales Consultant: Adair Wu Signed 25-Apr-2016 Chest PA and Lateral Result: Comments: See Note; NOTES: [facility] Imaging Services [address] [place] [address] Verdana 4d Chest PA and Lateral MR#: [id number] Acct: [id number] Name: MAR MAHARAJ Re p #: [id number] : 1945 F 70 From: Stephen Walton DO PCP: Davian Mccray Status: REG ER Study: Chest PA and Lateral Date of Exam: 04/25/16 Exam# [id number] Ordering Dr: Cristhian Mandujano MD STUDY: X-R [...] Stephen Walton DO at 20:12 EDT Tel [phone], Service support [phone], CC: CRISTHIAN MANDUJANO MD; Davian Mccray Managed Services Sales Consultant: Signed 25-Apr-2016 Abdomen/Pelvis without Cont Result: Comments: See Note; NOTES: [facility] Imaging Services [address] [place] [address] Verdana 4d Abdomen/Pelvis without Cont MR#: [id number] Acct: [id number] Name: GABE MAHARAJ JAMAAL S Rep #: [id number] : 1945 F 70 From: Stephen Walton DO PCP: Davian Mccray Status: REG ER Study: Abdomen/Pelvis without Cont Date of Exam: 04/25/16 Exam# [id number] Ordering Dr: Cristhian Mandujano MD STUDY: CT [...] Stephen Walton DO at 19:00 EDT Tel [phone], Service support [phone], CC: CRISTHIAN MANDUJANO MD; Davian Mccray Managed Services Sales Consultant: Signed 12-Mar-2016 Emergency Department Summary Result: Comments: See Note; NOTES: [facility] Medical Records Department [address] [place] [address] Emergency Department Summary MR#: [id number] Acct: [id number] Name: MAR MAHARAJ Rep #: [id number] : 1945 70 From: Darien Warren MD [...] contusion. Darien Warren MD T: NTS JOB: [id number] 03/12/16 0306 <Electronically signed by Darien Warren MD> Date Darien Warren MD Cosigner Signature (If Indicated): Date CC: Davian Mccray Date Dictated: 2326 Date Transcribed: 03/10/162326 Managed Services Sales Consultant: Signed 10-Mar-2016 Discharge Instruction Result: Comments: See Note; NOTES: [facility] Medical Records Department [address] [place] [address] Discharge Instruction 03/10/162006 MR#: [id number] Acct: [id number] Name: MAR MAHARAJ Rep #: [id number] : 1945 70 From: Darien Warren MD PCP: Davian Mccray Status: [facility] ER ED Disposition - Plan for ED Patient: Chief Complaint: Lower Extremity Injury Instructions: ED Hip Contusion Referrals: Davian Mccray [Primary Care Provider] - 3-5 Days if not improving What to do if you have Problems For any increased pain, shortness of breath, bleeding, n ausea or vomiting, chest pain, or any unexpected problems, contact your doctor. Call [facility] ([phone]) or report to the closest Emergency Room. Call 911 if necessary. 03/10/162007 <Electronically signed by Darien Warren MD> Date Darien Warren MD Cosigner Signature (If Indicated): Date CC: Davian Mccray 10-Mar-2016 Hip 2-3 Views with Pelvis Result: Comments: See Note; NOTES: [facility] Imaging Services [address] [place] [address] Verdana 4d Hip 2-3 Views with Pelvis MR#: [id number] Acct: [id number] Name: MAR DEAN Rep #: [id number] : 1945 F 70 From: Robles Mejia PCP: Davian Mccray Status: [facility] ER Study: Hip 2-3 Views with Pelvis Date of Exam: 03/10/16 Exam# [id number] Ordering Dr: Carlos Eduardo Warren MD STUDY: [...] MejiaDO at 19:47 EDT , Service support [phone], RAD/Hip 2-3 Views with Pelvis IMPRESSION: Hip joint space narrowing. Stable degenerative changes left hip. No fracture or dislocation. 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 ABNORMAL 25-Jan-2016 Pelvis 1 or 2 Views Result: Comments: See Note; NOTES: [facility] Imaging Services [address] [place] [address] Verdana 4d Pelvis 1 or 2 Views MR#: [id number] Acct: [id number] Name: Radha MAHARAJ Rep #: [id number] : 1945 F 70 From: Doroteo Salgado MD PCP: Davian Mccray Status: REG CLI Study: Pelvis 1 or 2 Views Date of Exam: 01/25/16 Exam# [id number] Ordering Dr: Yadira Nina dma, MD STUDY: [...] at 16 :50 EDT , Service support [phone], RAD/Pelvis 1 or 2 Views IMPRESSION: Focus [...] at 16:50 EDT , Service suppor t [phone], CC: Davian Mccray; Gemma Nina MD Managed Services Sales Consultant: Signed 19-Nov-2015 Vert Fx Asess/Lat Bone Den(H) Result: Comments: See Note; NOTES: [facility] Imaging Services [address] [place] [address] Verdana 4d Vert Fx Asess/Lat Bone Den(H) MR#: [id number] Acct: [id number] Luciano e: MAR MAHARAJ Rep #: [id number] : 1945 F 70 From: Florian Valenzuela MD PCP: Davian Mccray Status: REG CLI Study: Vert Fx Asess/Lat Bone Den(H) Date of Exam: 11/19/15 Exam# [id number] Chucho solorio Dr: Davian Mccray STUDY: DUAL ENERGY X-RAY [...] Florian Valenzuela MD at 8:52 EDT Tel [phone], Service support [phone], CC: Davian Mccray Managed Services Sales Consultant: Signed 19-Nov-2015 Bilat Scrn Digital AND CAD Result: Comments: See Note; NOTES: [facility] Imaging Services [address] [place] [address] Verdana 4d Bilat Scrn Digital AND CAD MR#: [id number] Acct: [id number] Name: MAR MAHARAJ Rep #: [id number] : 1945 F 70 From: Florian Vaelnzuela MD PCP: Davian Mccray Status: REG CLI Study: Bilat Scrn Digital AND CAD Date of Exam: 11/19/15 Exam# [id number] Ordering Dr: Davian Mccray MAMMOGRAPHY - BILATERAL [...] Florian Valenzuela MD at 10:06 EDT Tel [phone], Service support [phone], CC: Davian Mccray Managed Services Sales Consultant: Signed 19-Nov-2015 Bilat Scrn Digital AND CAD Result: Comments: See Note; NOTES: [facility] Imaging Services [address] [place] [address] Verdana 4d Bilat Scrn Digital AND CAD MR#: [id number] Acct: [id number] Name: MAR MAHARAJ Rep #: [id number] : 1945 F 70 From: Florian Valenzuela MD PCP: Davian Mccray Status: REG CLI Study: Bilat Scrn Digital AND CAD Date of Exam: 11/19/15 Exam# [id number] Ordering Dr: Davian Mccray MAMMOGRAPHY - BILATERAL [...] Florian Valenzuela MD at 10:06 EDT Tel [phone], Service support [phone], CC: Davian Mccray Managed Services Sales Consultant: Signed 19-Nov-2015 Dexa Bone Density Study (HP) Result: Comments: See Note; NOTES: [facility] Imaging Services [address] [place] [address] Verdana 4d Dexa Bone Density Study () MR#: [id number] Acct: [id number] Name : MAR MAHARAJ Rep #: [id number] : 1945 F 70 From: Florian Valenzuela MD PCP: Davian Mccray Status: [facility] Study: Dexa Bone Density Study () Date of Exam: 11/19/15 Exam# [id number] Order ing Dr: Davian Mccray STUDY: DUAL [...] Florian Valenzuela MD at 12:53 EDT Tel [phone], Service support [phone], F ax [phone] CC: Davian Mccray Managed Services Sales Consultant: Signed 19-Nov-2015 Thyroid Result: Comments: See Note; NOTES: [facility] Imaging Services [address] [place] [address] Verdana 4d Thyroid MR#: [id number] Acct: [id number] Name: MAR MAHARAJ Rep #: [id number] : 1945 F 70 From: Stephen Walton DO PCP: Davian Mccray Status: REG CLI Study: Thyroid Date of Exam: 11/19/15 Exam# [id number] Ordering Dr: Davian Mccray STUDY: THYROID ULTRASOUN [...] Stephen Walton DO at 16:48 EDT Tel [phone], Service support [phone], CC: Davian Mccray Managed Services Sales Consultant: Signed 17-Dec-2014 Cerv Spine 2 or 3 Views Result: Comments: See Note; NOTES: [facility] Imaging Services [address] [place] [address] Radiology Report MR#: [id number] Acct: [id number] Name: MAR MAHARAJ Rep #: [id number] : 1945 F 69 From: Vitaly Turner MD PCP: Fast DO,Libby Status: REG CLI Study: Cerv Spine 2 or 3 Views Date of Exam: 12/17/14 Exam# [id number] Ordering Dr: De Yepez STUDY: X-RAY - [...] at 11:32 EDT Tel , Service support [phone], 0045 RAD/Cerv Spine 2 or 3 Views IMPRESSION: Status post anterior fusion from C3-C6, with 3 mm extrusion of the C6 screw. Loss of the normal lordosis. No signs of instability. Electronically Signed: Vitaly Turner MD, FACR at 11:32 EDT , Service support [phone], CC: DE YEPEZ; Libby Horn DO Managed Services Sales Consultant: Signed 17-Dec-2014 Spine Cervical (Routine) Result: Comments: See Note; NOTES: [facility] Imaging Services [address] [place] [address] MRI Report MR#: [id number] Acct: [id number] Name: MAR MAHARAJ Rep #: [id number] : 1945 F 69 From: Vitaly Turner MD PCP: Libby Horn DO Status: REG CLI Study: Spine Cervical (Routine) Date of Exam: 12/17/14 Exam# [id number] Ordering Dr: De Yepez STUDY: MRI CERVIC [...] FACR at 11:15 EDT , Service support [phone], CC: DE YEPEZ; Libby Horn DO Managed Services Sales Consultant: Signed 15-Dec-2014 Thyroid Result: Comments: See Note; NOTES: [facility] Imaging Services [address] [place] [address] Ultrasound Report MR#: [id number] Acct: [id number] Name: MAR MAHARAJ Rep #: [id number] : 1945 F 69 From: Stephen Walton DO PCP: Libby Horn DO Status: REG CLI Study: Thyroid Date of Exam: 12/15/14 Exam# [id number] Ordering Dr: Lisa Garcia MD STUDY: THYROID [...] change when compared to the previous study. Jakob y Signed: Stephen Walton DO at 13:38 EDT Tel [phone], Service support [phone], CC: Libby Horn DO; Lisa Garcia MD Managed Services Sales Consultant: Signed 17-Nov-2014 Bilat Scrn Digital AND CAD Result: Comments: See Note; NOTES: [facility] Imaging Services [address] [place] [address] Breast Imaging Report MR#: [id number] Acct: [id number] Name: MAR MAHARAJ Rep #: [id number] : 1945 F 69 From: Alfa Bettencourt MD PCP: Libby Horn DO Status: REG CLI Study: Bilat Scrn Digital AND CAD Date of Exam: 11/17/14 Exam# [id number] Ordering Dr: Libby Horn DO MAMMOGR APHY - BILATERAL SCREENING REASON [...] at 12:06 EDT Tel , Service support [phone], CC: Libby Horn DO Managed Services Sales Consultant: Signed 17-Nov-2014 Chest without Contrast Result: Comments: See Note; NOTES: [facility] Imaging Services [address] [place] [address] CAT Scan Report MR#: [id number] Acct: [id number] Name: MAR MAHARAJ Rep #: [id number] : 1945 F 69 From: Alfa Bettencourt MD PCP: Libby Horn DO Status: REG CLI Study: Chest without Contrast Date of Exam: 11/17/14 Exam# [id number] Ordering Dr: Libby Horn DO STUDY: CT CHEST W ITHOUT CONTRAST [...] aneurysm Degenerative bony changes Electronically Signed: Eddie Bettecnourt MD 2014 at 10:21 EDT Tel , Service support [phone], CC: Libby Horn DO Managed Services Sales Consultant: Signed 23-Sep-2014 Brain/Head without Contrast Result: Comments: See Note; NOTES: [facility] Imaging Services [address] [facility] [place] [address] CAT Scan Report MR#: [id number] Acct: [id number] Name: MAR MAHARAJ Rep #: [id number] : 1945 F 69 From: Parminder Rashid MD PCP: Libby Horn DO Status: REG ER Study: Brain/Head without Contrast Date of Exam: 09/23/14 Exam# [id number] Ordering Dr: Rachel Avina MD STUDY: CT [...] MD at 21:19 EST , Service support [phone], CC: Libby Horn DO; Rachel Avina MD Managed Services Sales Consultant: Signed 23-Sep-2014 Spine Cervical without Contras Result: Comments: See Note; NOTES: [facility] Imaging Services [address] [place] [address] CAT Scan Report MR#: [id number] Acct: [id number] Name: MAR MAHARAJ Rep #: [id number] : 1945 F 69 From: Parminder Rashid MD PCP: Libby Horn DO Status: REG ER Study: Spine Cervical without Contras Date of Exam: 09/23/14 Exam# [id number] Ordering Dr: Rachel Avina MD LORENA DY: [...] MD at 21:25 EST , Service support [phone], CC: Libby Horn DO; Rachel Avina MD Managed Services Sales Consultant: Signed 21-Aug-2014 Discharge Instruction Result: Comments: See Note; NOTES: [facility] Medical Records Department [address] [place] [address] Instructions for Home/Discharge Instructions 08/21/14 1712 MR#: [id number] Acc t: [id number] Name: MAR MAHARAJ Rep #: [id number] : 1945 69 From: Galo Antoino PA-C PCP: Libby Horn DO Status: ADM IN Discharge Diet: 1800 [...] needed. Additional Instructions: F/U APPT S PER [facility] POST-OP INSTRUCTIONS F/U WITH GLENN RO 09/03/14 9:15 AM PHYSICAL THERAPY APPT WITH CADE @ [facility] 08/25/14 @ 9:00 AM, WILL [...] Please Follow Up With: Glenn Ro 08/21/14 5406 <Electronically signed by Galo Antonio PA-C> Date ___ Galo Antonio PA-C CC: Libby Horn DO 19-Aug-2014 Knee 1 or 2 Views Result: Comments: See Note; NOTES: [facility] Imaging Services [address] [place] [address] Radiology Report MR#: [id number] Acct: [id number] Name: MAR MAHARAJ Rep #: [id number] : 1945 F 69 From: Bakari Kenny MD PCP: Libby Horn DO Status: ADM IN Study: Knee 1 or 2 Views Date of Exam: 08/19/14 Exam# [id number] Ordering Dr: Darien Avina MD STUDY: X-RAY [...] MD at 16:29 EST , Service support [phone], CC: Libby Horn DO; Darien Avina MD Managed Services Sales Consultant: Signed 12-Aug-2014 History and Physical Exam Result: Comments: See Note; NOTES: [facility] Medical Records Department [address] [place] [address] History and Physical 08/11/14 1334 MR#: [id number] Acct: [id number] Name: MAR MAHARAJ Rep #: [id number] : 1945 69 From: Glenn Ro PCP: Libby Horn DO Status: PRE IN Location: [facility] DATE OF SERVICE: 08/19/2014 PRIMARY CARE PROVIDER: Libby Horn D.O. PROCEDURE TYPE: Right total knee arthroplasty. [...] b.i.d. REVIEW OF SYSTEMS: Documented in the [facility] medical history sheet. Please refer [...] of right knee dated May 30, 2014, [facility], weightbearing, AP, tunnel, [...] loi meera consent form. YADIRA Narvaez T: NTS JOB: [id number] 08/12/14 0740 <Electronically signed by Glenn Ro > Date: Time: Glenn Ro CC: Glenn Horn DO Date Dictated: 08/11/141333 Date Transcribed: 08/11/141333 Managed Services Sales Consultant: Signed ____ I have re-examined the patient. There a re no clinical changes since date of exam. ____ See Progress Notes for Changes ____ Dictated on Admission Date: Time: Signature: 23-May-2014 Hip min 2 Views Result: Comments: See Note; NOTES: [facility] Imaging Services [address] [place] [address] Radiology Report MR#: [id number] Acct: [id number] Name: MAR MAHARAJ Rep #: [id number] : 1945 F 68 From: Florian Valenzuela MD PCP: Libby Horn DO Status: REG CLI Study: Hip min 2 Views Date of Exam: 05/23/14 Exam# [id number] Ordering Dr: Libby Horn DO STUDY: X-RAY - RIGHT HIP REASON [...] Florian Valenzuela MD at 9:41 EDT Tel [phone], Service support [phone], CC: Libby Horn DO Managed Services Sales Consultant: Signed 23-May-2014 Knee 4 or More Views Result: Comments: See Note; NOTES: [facility] Imaging Services [address] [place] [address] Radiology Report MR#: [id number] Acct: [id number] Name: MAR MAHARAJ Rep #: [id number] : 1945 F 68 From: Florian Valenzuela MD PCP: Libby Horn DO Status: REG CLI Study: Knee 4 or More Views Date of Exam: 05/23/14 Exam# [id number] Ordering Dr: Libby Horn DO STUDY: X- RAY - RIGHT KNEE [...] Florian Valenzuela MD at 9:42 EDT Tel [phone], Service support [phone], CC: Libby Horn DO Managed Services Sales Consultant: Signed 02-May-2014 Chest without Contrast Result: Comments: See Note; NOTES: [facility] Imaging Services [address] [place] [address] CAT Scan Report MR#: [id number] Acct: [id number] Name: MAR MAHARAJ Rep #: [id number] : 1945 F 68 From: Cristhian Spears MD PCP: Libby Horn DO Status: REG CLI Study: Chest without Contrast Date of Exam: 05/02/14 Exam# [id number] Ordering Dr: Libby Honr DO STUDY: CT CH EST WITHOUT CONTRAST [...] at 15:32 EDT Tel , Service support [phone], CC: Libby Horn DO Managed Services Sales Consultant: Signed 02-May-2014 Thyroid Result: Comments: See Note; NOTES: [facility] Imaging Services [address] [place] [address] Ultrasound Report MR#: [id number] Acct: [id number] Name: MAR MAHARAJ Rep #: [id number] : 1945 F 68 From: Stephen Walton DO PCP: Libby Horn DO Status: REG CLI Study: Thyroid Date of Exam: 05/02/14 Exam# [id number] Ordering Dr: Libby Horn DO STUDY: THYROID ULTRASOUND REASON FOR EXAM: [...] Stephen Walton DO at 19:17 EDT Tel [phone], Service support [phone], CC: Libby Horn DO Managed Services Sales Consultant: Signed 27-Feb-2014 L/S Spine Min 4 Views Result: Comments: See Note; NOTES: [facility] Imaging Services [address] [place] [address] Radiology Report MR#: [id number] Acct: [id number] Name: MAR MAHARAJ Rep #: [id number] : 1945 F 68 From: Florian Valenzuela MD PCP: Libby Horn DO Status: REG CLI Study: L/S Spine Min 4 Views Date of Exam: 02/27/14 Exam# [id number] Ordering Dr: De Yepez STUDY: X-R AY [...] Florian Valenzuela MD at 10:31 EDT Tel [phone], Service support [phone], RAD/L/S Spine Min 4 Views IMP RESSION: The patient is status post laminectomy and fusion at the L3-L4 and L4- L5 levels with bone graft and bone stimulator. Grade 2 anterolisthesis of L4 on L5. Electronically Signed: Florian khan MD at 10:31 EDT Tel [phone], Service support [phone], CC: DE YEPEZ; Libby Horn DO Managed Services Sales Consultant: Signed 27-Feb-2014 Spine Lumbar (Routine) Result: Comments: See Note; NOTES: [facility] Imaging Services [address] [place] [address] MRI Report MR#: [id number] Acct: [id number] Name: MAR MAHARAJ Rep #: [id number] : 1945 F 68 From: Angus Arreola PCP: Libby Horn DO Status: REG CLI Study: Spine Lumbar (Routine) Date of Exam: 02/27/14 Exam# [id number] Ordering Dr: De Yepez STUDY: MRI LUMBAR [...] MD at 7:48 EDT , Service support [phone], CC: DE Horn DO Managed Services Sales Consultant: Signed 10-Feb-2014 Cerv Spine 2 or 3 Views Result: Comments: See Note; NOTES: [facility] Imaging Services [address] [facility] [place] [address] Radiology Report MR#: [id number] Acct: [id number] Name: MAR MAHARAJ Rep #: [id number] : 1945 F 68 From: Florian Valenzuela MD PCP: Libby Horn DO Status: REG CLI Study: Cerv Spine 2 or 3 Views Date of Exam: 02/10/14 Exam# [id number] Ordering Dr: De Yepez STUDY: X -RAY [...] Florian Valenzuela MD at 15:54 EDT Tel [phone], Service support [phone], RAD/Cerv Spine 2 or 3 Views IMPRESSION: Status post anterior fu tamika at the C3-C4, C4-C5 and C5-C6 levels. No abnormal movement occurs between the vertebral segments. Electronically Signed: Florian Valenzuela MD at 15:54 EDT Tel [phone], Service support [phone], CC: DE YEPEZ; Libby Horn DO Managed Services Sales Consultant: Signed 13-Jan-2014 Echocardiogram Complete Result: Comments: See Note; NOTES: [facility] Cardiovascular Services [address] [place] [address] Echo Complete 01/10/14 1155 MR#: [id number] Acct: [id number] Name: LESLY MAHARAJ Rep #: [id number] : 1945 68 From: Sergio Lawler MD Attending Dr: Nuris ARAGON,Sergio Status: REG CLI Ordering Dr: Sergio Lawler MD Date: 01/10/14 Location: [facility] Sex: F C Admitted: [facility] This was a 2D Doppler, [...] 11:03 AM CC: Sergio Lawler MD; Libby Horn DO Date Dictated: 01/10/14 1155 Date Transcribed: 01/13/14 1103 Managed Services Sales Consultant: Signed 20-Jun-2013 Valeri Thrasher Digital & CAD Result: Comments: See Note; NOTES: [facility] Imaging Services [address] [place] [address] Breast Imaging Report MR#: [id number] Acct: [id number] Name: MAR MAHARAJ Rep #: [id number] : 1945 F 67 From: Florian Valenzuela MD PCP: Status: REG CLI Exam# [id number] Ordering Dr: Libby Horn DO MAMMOGRAPHY - BILATERAL SCREENING REASON FOR [...] 20, 2013 at 9: 52:55 AM EDT [phone] Electronically Signed GP/GP If you are the referring physician and would like to consult with the radiologist who provided this interpretation, please contact Florian Valenzuela M.D. at [phone]. If this radiologist is unavailable, you will be directed to another radiologist to assist. If you are a patient with a question regarding this report, please contact your referring physician directly. Professional Interpretation Provided By: [employer], Phone , These documents contain legally protected [...] or destruction of these documents. CC: Hari Horn DO Managed Services Sales Consultant: Signed 20-Jun-2013 Dexa Bone Density Study (HP) Result: Comments: See Note; NOTES: [facility] Imaging Services [address] [place] [address] Bone Density Report MR#: [id number] Acct: [id number] Name: MAR MAHARAJ Rep #: [id number] : 1945 F 67 From: Florian Valenzuela MD PCP: Status: [facility] Study: Dexa Bone Density Study (HP) Date of Exam: 06/20/13 Exam# [id number] Ordering Dr: Libby Horn DO STUDY: DUAL ENERGY X-RAY ABSORPTIOMETRY / [...] angel luis mbar spine. On the lateral football scout view, there is evidence of loss of [...] June 20, 2013 at 10:14:39 AM EDT [phone] Electronically Signed GP/GP If you are the referring physician and would like to consult with the radiologist who provided this interpretation, please contact Florian Valenzuela M.D. at [phone]. If this radiologist is unavailable, you will be directed to another radiologist to assist. If you are a patient with a question regarding this report, plea se contact your referring physician directly. Professional Interpretation Provided By: [employer], Phone , These documents contain legally protected [...] or destruction of these documents. CC: Libby Horn DO Managed Services Sales Consultant: Signed 06-Jun-2013 Chest without Contrast Result: Comments: See Note; NOTES: [facility] Imaging Services [address] [place] [address] CAT Scan Report MR#: [id number] Acct: [id number] Name: MAR MAHARAJ Rep #: [id number] : 1945 F 67 From: Florian Valenzuela MD PCP: Status: REG CLI Study: Chest without Contrast Date of Exam: 06/06/13 Exam# [id number] Ordering Dr: Libby Horn DO STUDY: CT CHEST WITHOU T CONTRAST [...] June 06, 2013 at 10:07:38 AM EDT [phone] Electronically Signed GP/GP If you are the referring physician and would like to consult with the radiologist who provided this interpretation, please contact Florian Valenzuela M.D. at [phone]. If this radiologist is unavailable, you will be directed to another radiologist to assist. If you are a patient with a question regarding this report, please contact your referring physician directly. Professional Interpretation Provided By: [employer], Phone , These documents contain legally protected [...] or destruction of these documents. CC: Libby Horn DO Managed Services Sales Consultant: Signed 06-Jun-2013 Chest without Contrast Result: Comments: See Note; NOTES: [facility] Imaging Services [address] [place] [address] CAT Scan Report MR#: [id number] Acct: [id number] Name: MAR MAHARAJ Rep #: [id number] : 1945 F 67 From: Florian Valenzuela MD PCP: Status: REG CLI Study: Chest without Contrast Date of Exam: 06/06/13 Exam# [id number] Ordering Dr: Libby Horn DO STUDY: CT CHEST WITHOU T CONTRAST [...] June 06, 2013 at 10:07:38 AM EDT [phone] Electronically Signed GP/GP If you are the referring physician and would like to consult with the radiologist who provided this interpretation, please contact Florian Valenzuela M.D. at [phone]. If this radiologist is unavailable, you will be directed to another radiologist to assist. If you are a patient with a question regarding this report, please contact your referring physician directly. Professional Interpretation Provided By: [employer], Phone , These documents contain legally protected [...] or destruction of these documents. 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 Smoking Status [...] Area Calculated 1.72 m2 :33 Comments: hearing willalDrJoanne Chatterjee and had a glaucoma test done [...] kg/m2 Body Surface Area Calculated 1.82 m2 26-Ucu-791931:12 Pulse 68 /min Comments: Pattern: Regular Respiration [...] 0.00 cm Results Date Description Value Details :34 CBC W/Diff, Automated Comments: [facility] [address] [place], [place], [id number] Absolute Lymph 1.24 {X10_3/ul} (Normal) Range: 0.83-4.51 [...] 4.2-5.4 WBC 6.6 K/mm3 (Normal) Range: 4.4-11.0 09-Bmh-080869:34 Comprehensive Metabolic Profil Comments: [facility] [address] [place], [address] GAP 11 (Normal) Range: 5-15 CO2 28.0 [...] A.D.A. criteria.Please note revised GLUCOSE reference range qcrtorsdd01/02/2018. :32 HgA1C , Office (30857) HgA1C , Office 6.3 % (Normal) Range: 4.6 - 7.1 :32 Blood Glucose , Office (92419) Blood Glucose , Office 133 (Normal) :16 Miscellaneous Lab Procedure Comments: Comments: [id number]; URINE TOX; RUN LOWEST TEST IN LABCOTest(s) Ordered: [id number]; URINE TOX; RUN LOWEST TEST IN [facility] [address] [place], [place], [address] [facility] Comments: [id number] 6+OXYCODONE-BUND (ng/mL)DRUG RESULT SCREEN CUTOFF____ Amphetamines,Urine Negat LAB (Normal) ananth ng/mL 1000Amphetamine test includes Amphetamine and Methamphetamine.Barbiturates Negative ng/mL 200Benzodiazepines Negative ng/mL 200Cannabinoid TEST Negative ng/mL 20Cocaine (Metab) Negative ng/mL 300Opiates Negative ng/mL 300 Opiates test includes Codeine, Morphine, Hydromorphone, [place] codone.Oxycodone/Oxymorphone,Urine Negative ng/mL 300 Test includes Oxydodone and Oxymorphone. TESTING PERFORMED AT [facility]. ORIGINAL REPORT ON FILE IN LAB CONTAINS ADDITIONAL TEST SITE INFORMATION. :16 Urine Drug Screen (VISTA) Comments: Comments: [id number]; URINE TOX; RUN LOWEST TEST IN LABCORPList of Drugs Taken or Suspected? [facility] [address] [place], [address] THC NEGATIVE (Normal) PCP NEGATIVE [...] TESTING MUST BE ORDERED SEPARATELY. USE TESTMNEMONIC: [facility] 36-Lis-09596:28 Microscopic Examination Comments: PATIENT WAS FASTINGPERFORMED BY: [facility]CoKessler Institute for RehabilitationJvwmeq8925 [facility] [id number] Bacteria Few (Normal) Mucus Threads Present (Normal) Epithelial Cells (non renal) 0-10 {/hpf} (Normal) Range: 0 - 10 RBC 0-2 {/hpf} (Normal) Range: 0 - 2 WBC 0-5 {/hpf} (Normal) Range: 0 - 5 :52 Basic Metabolic Profile (BMP) Comments: [facility] [address] [place], [address] GAP 10 (Normal) Range: 5-15 CO2 27.0 [...] A.D.A. criteria.Please note revised GLUCOSE reference range psyjolxvy87/02/2018. 07-May-20188:52 CBC W/Diff, Automated Comments: [facility] [address] [place], [place], [address] Absolute Lymph 1.75 {X10_3/ul} (Normal) Range: 0.83-4.51 [...] Range: 4.4-11.0 :05 CBC W/Diff, Automated Comments: [facility] [address] [place], [place], [address] Absolute Lymph 1.82 {X10_3/ul} (Normal) Range: 0.83-4.51 [...] Range: 4.4-11.0 :05 Comprehensive Metabolic Profil Comments: [facility] [address] [place], [address] GAP 12 (Normal) Range: 5-15 CO2 28.0 [...] A.D.A. criteria.Please note revised GLUCOSE reference range mjwtlnaxq96/02/2018. 88-Bcp-40806:28 CALCIFEDIOL (09298) Comments: PATIENT WAS FASTINGPERFORMED BY: [facility] Yzghsi5526 [facility] [id number] Vitamin D, 25-Hydroxy 45.7 ng/mL (Normal) Range: 30.0-100.0 Comments: Vitamin D deficiency has been defined by the [place] ofMedicine and an Endocrine Society practice guideline as alevel of serum 25-OH vitamin D less than 20 ng/mL (1,2).The Endocrine Society went on to further define vitamin Dinsufficiency as a level between 21 and 29 ng/mL (2).1. IOM ([place] of Medicine). 2010. Dietary reference intakes for calcium and D. [place]: The National Academies Press.2. Delma MF, Mckenna ABDALLA, Dane MACKENZIE, et al. Evaluation, treatment, and prevention of vitamin D deficiency: an Endocrine Society clinical practice guideline. JCEM. 2010; 96(7):1911-30. :28 VITAMIN B-12 (CYANOCOBALAMIN) Comments: PATIENT WAS FASTINGPERFORMED BY: [employer] [place] [id number] (97609) Vitamin B12 507 pg/mL (Normal) Range: 232-1245 :28 TSH (16005) Comments: PATIENT WAS FASTINGPERFORMED BY: [employer] [place] [id number] TSH 0.816 {uIU/mL} (Normal) Range: 0.450-4.500 :28 URINALYSIS, W/ MICRO (99497) Comments: PATIENT WAS FASTINGPERFORMED BY: [employer]ia[address] [place] [id number] Microscopic Examination See below: (Normal) Comments: Microscopic was indicated and was performed. Nitrite, Urine Negative (Normal) Urobilinogen,Semi-Qn 0.2 mg/dL (Normal) Range: 0.2-1.0 Bilirubin Negative (Normal) Occult Blood Negative (Normal) Ketones Negative (Normal) Glucose Negative (Normal) Protein Negative (Normal) WBC Esterase 1+ (Abnormal) Appearance Clear (Normal) Urine-Color Yellow (Normal) pH 7.0 (Normal) Range: 5.0-7.5 Specific [place] 1.017 (Normal) Range: 1.005-1.030 :28 MICROALBUMIN: CREATININE RATIO Comments: PATIENT WAS FASTINGPERFORMED BY: [employer]in [place] [id number] (34516) AND (33155) Alb/Creat Ratio 9.9 {mg/g_creat} (Normal) Range: 0.0-30.0 Albumin, Urine 7.9 ug/mL (Normal) Creatinine, Urine 79.8 mg/dL (Normal) :28 METABOLIC PANEL, COMPREHENSIVE Comments: PATIENT WAS FASTINGPERFORMED BY: LabAPIM [employer]6370 [facility] [id number] (72674) ALT (SGPT) 13 [iU]/L (Normal) Range: 0-32 [...] 8-27 Glucose 142 mg/dL (Abnormal) Range: 65-99 24-Hme-71471:28 LIPID PANEL (30158) Comments: PATIENT WAS FASTINGPERFORMED BY: LabCoPlum.ioKgiuzj9652 [facility] [id number] LDL/HDL Ratio 3.2 {ratio} (Normal) Range: 0.0-3.2 Comments: LDL/HDL Ratio Men Women 1/2 Avg.Risk 1.0 1.5 Av g.Risk 3.6 3.2 2X Avg.Risk 6.2 5.0 3X Avg.Risk 8.0 6.1 LDL Cholesterol Calc 143 mg/dL (Abnormal) Range: 0-99 VLDL Cholesterol Peg 29 mg/dL (Normal) Range: 5-40 HDL Cholesterol 45 mg/dL (Normal) Triglycerides 143 mg/dL (Normal) Range: 0-149 Cholesterol, Total 217 mg/dL (Abnormal) Range: 100-199 09-Koa-70806:28 CBC W/AUTO DIFF WBC (52608) Comments: PATIENT WAS FASTINGPERFORMED BY: [facility]CoKessler Institute for RehabilitationMcsnjj1074 [facility] [id number] Immature Grans (Abs) 0.0 {x10E3/uL} (Normal) Range: [...] (Normal) Range: 3.4-10.8 :43 HgA1C , Office (17592) HgA1C , Office 6.3 % (Normal) Range: 4.6 - 7.1 :43 Blood Glucose , Office (64609) Blood Glucose , Office 105 (Normal) :55 MAGNESIUM (49448) Comments: PATIENT NOT FASTINGPERFORMED BY: [facility]CoK[facility] Institute for RehabilitationGtvein8492 [facility] [id number] Magnesium 1.6 mg/dL (Normal) Range: 1.6-2.3 :55 POTASSIUM SERUM (79227) Comments: PATIENT NOT FASTINGPERFORMED BY: [facility] Jjffrw8370 [facility] [id number]; ov 02/19 Potassium 4.8 mmol/L (Normal) Range: 3.5-5.2 :59 CBC W/Diff, Automated Comments: [facility] [address] [place], [place], [address] Absolute Lymph 2.55 {X10_3/ul} (Normal) Range: 0.83-4.51 [...] Range: 4.4-11.0 07-Dec-20178:59 Comprehensive Metabolic Profil Comments: [facility] [address] [place], [address] GAP 8 (Normal) Range: 5-15 CO2 32.0 mmol/L (Normal) Range: 21.0-32.0 CL 100 mmol/L (Normal) Range: 98-107 K 3.4 mmol/L (Abnormal) Range: 3.5-5.1 NA 140 mmol/L (Normal) Range: 136-145 T BILI 0.40 mg/dL (Normal) Range: 0.20-1.00 ALT 21 U/L (Normal) Range: 13-56 Comments: Please note revised ALT reference range ynncwjusc98/28/2018. ALK P 76 U/L (Normal) Range: 45-117 [...] A.D.A. criteria.Please note revised GLUCOSE reference range hewinncfr96/02/2018. 5-Awi-705928:40 Microscopic Examination Comments: PATIENT WAS FASTINGPERFORMED BY: [employer] [address] [id number] BY: Table[address] [facility] [place] [id number] Bacteria Few (Normal) Epithelial Cells (non renal) 0-10 {/hpf} (Normal) Range: 0 - 10 RBC None seen {/hpf} (Normal) Range: 0 - 2 WBC 0-5 {/hpf} (Normal) Range: 0 - 5 3-Yjw-756906:40 VITAMIN B-12 (CYANOCOBALAMIN) Comments: PATIENT WAS FASTINGPERFORMED BY: [employer] [address] [id number] BY: [address] [facility] [place] [id number] (97946) Vitamin B12 470 pg/mL (Normal) Range: 232-1245 7-Xtf-069331:40 CALCIFIDIOL (90877) VIT D Comments: PATIENT WAS FASTINGPERFORMED BY: [employer] [address] [id number] BY: Risk I/Olin[address] [facility] [id number] 25 Vitamin D, 25-Hydroxy 36.1 ng/mL (Normal) Range: 30.0-100.0 Comments: Vitamin D deficiency has been defined by the [place] ofMedicine and an Endocrine Society practice guideline as alevel of serum 25-OH vitamin D less than 20 ng/mL (1,2).The Endocrine Society went on to further define vitamin Dinsufficiency as a level between 21 and 29 ng/mL (2).1. IOM ([place] of Medicine). 2010. Dietary reference intakes for calcium and D. [place]: The National Academies Press.2. Delma MF, Mckenna ABDALLA, Dane MACKENZIE, et al. Evaluation, treatment, and prevention of vitamin D deficiency: an Endocrine Society clinical practice guideline. JCEM. 2010; 96(7):1911-30. 4-Hbm-942782:40 LIPOPROTEIN, BLD, BY NMR Comments: PATIENT WAS FASTINGPERFORMED BY: BN [facility] Fbnwxpjnap7715 [facility] [id number] BY: CB [facility] Ahqciu3254 [facility] [id number] (38401) LP-IR Score 80 (Abnormal) Comments: INSULIN RESISTANCE MARKER <--Insulin Sensitive Insulin Resistant--> Percentile in Reference PopulationInsulin Resistance ScoreLP-IR Score Low 25th 50th 75th High <27 27 45 63 >63LP-IR Score is inaccurate if patient is non-fasting. .The LP-IR score is a laboratory developed i [facility] that has beenassociated with insulin resistance and [...] were developed and their performance characteristicsdetermined by [employer]. These assays have not been cleared by [...] 1600 - 2000 Very High > 2000 8-Djp-581978:40 TSH (68810) Comments: PATIENT WAS FASTINGPERFORMED BY: [employer] [place] [address] [id number] BY: [employer] Tvwspu5404 [facility] [id number] TSH 1.780 {uIU/mL} (Normal) Range: 0.450-4.500 4-Zap-835708:40 URINALYSIS, W/ MICRO Comments: PATIENT WAS FASTINGPERFORMED BY: Royal Wins[address] [id number] BY: Attainia6370 [facility] [id number] (45064) Microscopic Examination See below: (Normal) Comments: Microscopic was indicated and was performed. Microscopic Examination MICRON (Normal) Comments: Microscopic follows if indicated. Nitrite, Urine Negative (Normal) Urobilinogen,Semi-Qn 0.2 mg/dL (Normal) Range: 0.2-1.0 Bilirubin Negative (Normal) Occult Blood Negative (Normal) Ketones Negative (Normal) Glucose Negative (Normal) Protein Negative (Normal) WBC Esterase Negative (Normal) Appearance Clear (Normal) Urine-Color Yellow (Normal) pH 7.5 (Normal) Range: 5.0-7.5 Specific [place] 1.016 (Normal) Range: 1.005-1.030 0-Dbk-730004:40 MICROALBUMIN: CREATININE Comments: PATIENT WAS FASTINGPERFORMED BY: [employer] [id number] BY: TapCrowdJesse [place] 7971070 [facility] [id number] RATIO (76532) AND (09907) Alb/Creat Ratio 8.6 {mg/g_creat} (Normal) Range: 0.0-30.0 Albumin, Urine 4.7 ug/mL (Normal) Creatinine, Urine 54.7 mg/dL (Normal) 6-Hcp-437101:40 METABOLIC PANEL, Comments: PATIENT WAS FASTINGPERFORMED BY: [employer] [id number] BY: TapCrowdKessler Institute for RehabilitationXuxcfp7340 [facility] [id number] COMPREHENSIVE (21326) ALT (SGPT) 17 [iU]/L (Normal) Range: 0-32 [...] 8-27 Glucose 99 mg/dL (Normal) Range: 65-99 9-Dst-004327:40 CBC W/AUTO DIFF WBC Comments: PATIENT WAS FASTINGPERFORMED BY: BN [facility] Pidaldykit0426 [facility] [id number] BY: CB [facility] Viotlq2019 [facility] [id number]; ov tomrrow 12/07 (74974) Immature Grans (Abs) 0.0 {x10E3/uL} (Normal) Range: [...] (Normal) Range: 3.4-10.8 :26 HgA1C , Office (62178) HgA1C , Office 6.7 % (Normal) Range: 4.6 - 7.1 :26 Blood Glucose , Office (56927) Blood Glucose , Office 141 (Normal) 1-Kmm-766387:10 CBC W/Diff, Automated Comments: [facility] [address] [place], [address] Absolute Lymph 2.70 {X10_3/ul} (Normal) Range: 0.83-4.51 [...] 4.2-5.4 WBC 7.1 K/mm3 (Normal) Range: 4.4-11.0 0-Mxp-116318:10 Comprehensive Metabolic Profil Comments: [facility] [address] [place], [place], [address] GAP 10 (Normal) Range: 5-15 CO2 28.0 mmol/L (Normal) Range: 21.0-32.0 CL 100 mmol/L (Normal) Range: 98-107 K 3.8 mmol/L (Normal) Range: 3.5-5.1 NA 138 mmol/L (Normal) Range: 136-145 T BILI 0.40 mg/dL (Normal) Range: 0.20-1.00 ALT 16 U/L (Normal) Range: 13-56 Comments: Please note revised ALT reference range /28/2018. ALK P 81 U/L (Normal) Range: 45-117 [...] 126 mg/dLsuggests DIABETES MELLITUS per A.D.A. criteria. 8-Exe-182790:10 CRP Comments: [facility] [address] [place], [place], [address] C-REACTIVE PROT 4.26 mg/L (Abnormal) Range: 0.0-3.0 Comments: C-Reactive Protein (CRP) provides useful information for thediagnosis, therapy and monitoring of inflammatory processesand associated diseases. For the evaluation of Relative Riskfor Cardiovascular Dise ase, a High Sensitivity CRP (HSCRP)should be ordered. 5-Nnp-090194:10 Erythrocyte Sed Rate Comments: [facility] [address] [place], [address] SED RATE 7 mm/h (Normal) Range: 0-30 07-Sep-20178:49 Rapid Flu (90647 x 2) Influenza A Ag Positive (Normal) Comments: A, no flu shot 9-Ord-564594:31 Rapid Strep Test, Office (09992) Rapid Strep Test, Office Negative (Normal) :51 THROAT CULTURE (09428) Comments: PATIENT NOT FASTINGPERFORMED BY: [facility] [id number] Information: SRC: Result 1 RRF (Normal) Comments: Routine respiratory vicente Upper Respiratory Final report Culture (Normal) Lipase, Serum 11 U/L (Abnormal) Comments: PATIENT NOT FASTINGPERFORMED BY: Attainia6370 [facility] [id number] :30 Range: 14-85 Written Authorization WAR (Normal) Comments: PATIENT NOT FASTINGPERFORMED BY: Attainia6370 [facility] [id number] :30 Comments: Written Authorization Received.Authorization received from original requistion [id number] by Ann Hartley :30 METABOLIC PANEL, COMPREHENSIVE Comments: stat; PATIENT NOT FASTINGPERFORMED BY: [employer] Jgxljy5958 [facility] [id number] (03801) ALT (SGPT) 5 [iU]/L (Normal) Range: 0-32 [...] Glucose, Serum 99 mg/dL (Normal) Range: 65-99 5-Kbs-338460:30 CBC W/AUTO DIFF WBC (91281) Comments: stat; PATIENT NOT FASTINGPERFORMED BY: [facility] Wuyxmk8432 [facility] [id number] Immature Grans (Abs) 0.0 {x10E3/uL} (Normal) Range: [...] 3.77-5.28 WBC 7.3 {x10E3/uL} (Normal) Range: 3.4-10.8 3-Ayc-212930:31 Rapid Flu (27246 x 2) Influenza A Ag Negative (Normal) 00-Jjt-024554:28 HgA1C , Office (83628) HgA1C , Office 6.3 % (Normal) Range: 4.6 - 7.1 59-Pws-204035:28 Blood Glucose , Office (36642) Blood Glucose , Office 133 (Normal) 22-Xfi-529760:27 VITAMIN B-12 (CYANOCOBALAMIN) Comments: PATIENT NOT FASTINGPERFORMED BY: [employer] Doyle [facility] HospitalNohms TechnologiesCritical access hospital [id number] (35589) Vitamin B12 258 pg/mL (Normal) Range: 211-946 94-Jda-257344:27 MAGNESIUM (68161) Comments: PATIENT NOT FASTINGPERFORMED BY: [employer] Doyle [facility] HospitalNohms TechnologiesCritical access hospital [id number] Magnesium, Serum 1.6 mg/dL (Normal) Range: 1.6-2.3 99-Hlf-620657:27 Metabolic Panel, Basic Comments: PATIENT NOT FASTINGPERFORMED BY: [employer] CatervaCritical access hospital [id number] (95237) Calcium, Serum 9.3 mg/dL (Normal) Range: 8.7-10.3 [...] Glucose, Serum 138 mg/dL (Abnormal) Range: 65-99 55-Zsi-994434:50 Urinalysis, Complete Comments: How was Urine Obtained? 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 [place], [place], [id number] MUCUS, URINE 0 SEEN {/hpf} (Normal) BACTERIA [...] Yellow (Normal) :15 CBC W/Diff, Automated Comments: [facility] Beqqpipvnl3454 [facility] [address]. [place], [place], [address] Absolute Lymph 1.41 {X10_3/ul} (Normal) Range: 0.83-4.51 [...] 4.2-5.4 WBC 7.7 K/mm3 (Normal) Range: 4.4-11.0 26-Vyx-810692:15 Comprehensive Metabolic Profil Comments: [facility] Eggzz[address]iea[address] [place], [place], [address] GAP 6 (Normal) Range: 5-15 CO2 33.0 [...] 7-18 GLU 101 mg/dL (Normal) Range: 70-110 84-Gfv-419787:09 CBC W/Diff, Automated Comments: [facility] [address] [place], [address] ; another doc Absolute Lymph 1.90 {X10_3/ul} [...] 4.2-5.4 WBC 6.6 K/mm3 (Normal) Range: 4.4-11.0 84-Dda-783515:09 Comprehensive Metabolic Profil Comments: [facility] [address]sfxdxwb[address] [place], [place], [address] GAP 10 (Normal) Range: 5-15 CO2 25.0 [...] 126 mg/dLsuggests DIABETES MELLITUS per A.D.A. criteria. 93-Hst-745656:09 Lipase Comments: [facility] [address] [place], [address] LIPASE 42 U/L (Abnormal) Range: 73-393 2-Thp-177587:19 Metabolic Panel, Comprehensive Comments: PATIENT NOT FASTINGPERFORMED BY: [facility] Lthhed8173 [facility] [id number] (01233) ALT (SGPT) 11 [iU]/L (Normal) Range: 0-32 [...] Glucose, Serum 108 mg/dL (Abnormal) Range: 65-99 8-Jii-148776:19 HGB A1C (23695) Comments: PATIENT NOT FASTINGPERFORMED BY: [facility]6370 [facility] [id number] Hemoglobin A1c 5.9 % (Abnormal) Range: 4.8-5.6 Comments: . Pre-diabetes: 5.7 - 6.4 Diabetes: >6.4 Glycemic control for adults with diabetes: <7.0 :19 MAGNESIUM (15816) Comments: PATIENT NOT FASTINGPERFORMED BY: [place] 1015670 [facility] [id number] Magnesium, Serum 1.7 mg/dL (Normal) Range: 1.6-2.3 :19 CBC, Platelets & Auto Diff Comments: PATIENT NOT FASTINGPERFORMED BY: [facility]6370 [facility] [id number] (70966) Immature Grans (Abs) 0.0 {x10E3/uL} (Normal) Range: [...] 3.77-5.28 WBC 9.5 {x10E3/uL} (Normal) Range: 3.4-10.8 44-Onf-444860:41 Comprehensive Metabolic Profil Comments: REDRAW. PREVIOUS SPECIMEN REJECTED DUE TOHEMOLYSIS. 04/28/17 1128 Aura Ch.[facility] [address] [place], [place], [address] GAP 6 (Normal) Range: 5-15 CO2 25.0 [...] 126 mg/dLsuggests DIABETES MELLITUS per A.D.A. criteria. 54-Izj-126357:05 Urinalysis, Complete Comments: Order Date: 04/28/17Has pt arrived? YHow was Urine Obtained? CATHE[facility] SPECIMENWSum[facility] [address]ibjw[address] [place], [place], [address] AMORPHOUS 1+ (Normal) MUCUS, URINE 0 SEEN [...] CLARITY Sl. Cloudy (Normal) COLOR Yellow (Normal) 49-Jry-586558:00 CBC W/Diff, Automated Comments: [facility] [address]fr[address] [place], [place], [address] Absolute Lymph 1.58 {X10_3/ul} (Normal) Range: 0.83-4.51 [...] 4.2-5.4 WBC 25.0 K/mm3 (Abnormal) Range: 4.4-11.0 30-Zsu-562107:00 Lactic Acid Comments: Yes/No query for Sepsis Lactate Rule [facility] [address] [place], [address] LACTIC ACID 1.6 mmol/L (Normal) Range: 0.4-2.0 54-Kuv-863689:00 Partial Thromboplast Time Comments: [facility] [address] [place], [address] PTT 22.4 s (Abnormal) Range: 24.1-36.2 73-Dyw-724558:00 Prothrombin Time w/INR Comments: [facility] [address] [place], [address] INR 1.0 (Normal) PROTIME 12.8 s (Normal) Range: 11.7-14.9 14-Lbv-51177:50 Miscellaneous Lab Procedure Comments: Comments: [id number]; URINE TOX; RUN LOWEST TEST IN LABCORPTest(s) Ordered: [id number]; URINE TOX; RUN LOWEST TEST IN LABCOMcKit[facility] Anryeabizs6[address] [place], [id number] [facility] Comments: [id number] 6+OXYCODONE-BUND (ng/mL)DRUG RESULT SCREEN CUTOFF____ Amphetamines,Urine Negat LAB (Normal) ananth ng/mL 1000Amphetamine test includes Amphetamine and Methamphetamine.Barbiturates Negative ng/mL 200Benzodiazepines Negative ng/mL 200Cannabinoid TEST Negative ng/mL 20Cocaine (Metab) Negative ng/mL 300Opiates Positive ng/mL 300 Opiates test includes Codeine, Morphine, Hydromorphone, [place] codone.Please Note:Confirmation performed by Mass SpectrometryCodeine Negative 300Morphine Positive Morphine Confirm >3000 ng/mL 300Hydromor phone Negative 300Hydrocodone Negative 300Oxycodone/Oxymorphone,Urine Negative ng/mL 300 Test includes Oxydodone and Oxymorphone. TESTING PERFORMED AT [facility]. ORIGINAL REPORT ON FILE IN LAB CONTAINS ADDITIONAL TEST SITE INFORMATION. :50 Urine Drug Screen (VISTA) Comments: Comments: [id number]; URINE TOX; RUN LOWEST TEST IN LABCOList of Drugs Taken or Suspected? [facility] Ohibazackl[address] [place], [address] THC NEGATIVE (Normal) PCP NEGATIVE (Normal) OPIATES [...] TESTING MUST BE ORDERED SEPARATELY. USE TESTMNEMONIC: [facility] :00 Basic Metabolic Profile (BMP) Comments: 'TROP' Serial specimen #1, #2, #3, or #4: 1[facility] [address] [place], [place], [address] GAP 10 (Normal) Range: 5-15 CO2 28.0 [...] A.D.A. criteria. :00 CBC W/Diff, Automated Comments: [facility] [address] [place], [address] ; another doc Absolute Lymph 1.20 {X10_3/ul} [...] 4.2-5.4 WBC 4.0 K/mm3 (Abnormal) Range: 4.4-11.0 64-Htp-19294:00 Lipase Comments: 'TROP' Serial specimen #1, #2, #3, or #4: [address] [place] [address] [place], [address] LIPASE 82 U/L (Normal) Range: 73-393 84-Myb-16030:00 Liver Profile Comments: 'TROP' Serial specimen #1, #2, #3, or #4: [address] [place] [address] [address] [place], [address] D BILI 0.12 mg/dL (Normal) Range: 0.00-0.30 T BILI 0.50 mg/dL (Normal) Range: 0.20-1.00 ALT 13 U/L (Normal) Range: 12-78 ALK P 58 U/L (Normal) Range: 45-117 AST 6 U/L (Abnormal) Range: 15-37 GLOB 3.4 g/dL (Normal) Range: 2.3-3.5 ALB 3.7 g/dL (Normal) Range: 3.4-5.0 T PROT 7.1 g/dL (Normal) Range: 6.4-8.2 20-Iaf-35166:00 Troponin-I Comments: 'TROP' Serial specimen #1, #2, #3, or #4: 1[facility] [address] [place], [address] TROPONIN-I < 0.02 ng/mL (Normal) Comments: TROPONIN-I EXPECTED VALUES <0.05 NEGATIVE 0.06 - 0.59 AT RISK OF RI > OR = 0.60 SUGGEST RI 54-Dsx-346083:01 Renal Profile Comments: Order Date: 01/17/17Order Info: [id number] - RENALOrder Info: [id number] - MGOrder Date: 01/17/17Order Info: [id number] - [facility] Rxjxsdwbky7[address] [place], [phone] CO2 31.0 mmol/L (Normal) Range: 21.0-32.0 CL [...] 7-18 GLU 102 mg/dL (Normal) Range: 70-110 18-Sif-345873:01 MAGNESIUM (42279) Comments: Order Date: 01/17/17Order Info: [id number] - RENALOrder Info: [id number] - MGOrder Date: 01/17/17Order Info: [id number] - MGWooSamaritan [facility] [address] [place], [phone] MG 1.5 mg/dL (Abnormal) Range: 1.8-2.4 Comments: Moderate Hemolysis, Result may be falsely increased. 15-Dfb-652250:25 CBC W/Diff, Automated Comments: [facility] [address] [place], [address] Absolute Lymph 1.62 {X10_3/ul} (Normal) Range: 0.83-4.51 [...] 4.2-5.4 WBC 10.3 K/mm3 (Normal) Range: 4.4-11.0 26-Jaz-712769:25 Comprehensive Metabolic Profil Comments: 'TROP' Serial specimen #1, #2, #3, or #4: [address] [place] [address] [address] [place], [place], [address] GAP 10 (Normal) Range: 5-15 CO2 29.0 [...] <126 mg/dLsuggests IMPAIRED HOMEOSTASIS per A.D.A. criteria. 96-Usi-238332:25 Lipase Comments: 'TROP' Serial specimen #1, #2, #3, or #4: [address] [place] [address] [address] [place], [place], [address] LIPASE 52 U/L (Abnormal) Range: 73-393 12-Vvi-139753:25 Partial Thromboplast Time Comments: [facility] [address] [place], [place], [address] PTT 32.0 s (Normal) Range: 24.1-36.2 97-Nxs-939434:25 Prothrombin Time w/INR Comments: [facility] [address]phur[address] [place], [place], [address] INR 1.0 (Normal) PROTIME 13.1 s (Normal) Range: 11.7-14.9 13-Vql-203947:25 Troponin-I Comments: 'TROP' Serial specimen #1, #2, #3, or #4: [address] [place] [address] [address] [place], [place], [address] TROPONIN-I 0.93 ng/mL (Abnormal) Comments: Critical Result(s) Called INDRA Tyson at: 12:03:5604 by: JAYDA CRAIG TROPONIN-I EXPECTED VALUES <0.05 NEGATIVE 0.06 - 0.59 AT RISK OF RI > OR = 0.60 SUGGEST RI 10-Ups-769730:40 Urinalysis, Complete Comments: How was Urine Obtained? 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 [place], [address] MUCUS, URINE 0 SEEN {/hpf} (Normal) BACTERIA [...] CLARITY Sl. Cloudy (Normal) COLOR Yellow (Normal) 74-Gbv-449290:09 CBC W/Diff, Automated Comments: [facility] [address] [place], [address] Absolute Lymph 1.33 {X10_3/ul} (Normal) Range: 0.83-4.51 [...] 4.2-5.4 WBC 5.7 K/mm3 (Normal) Range: 4.4-11.0 98-Eug-168689:09 Comprehensive Metabolic Profil Comments: 'TROP' Serial specimen #1, #2, #3, or #4: 1[facility] [address]ox[address]lmq[address] [place], [place], [address] GAP 8 (Normal) Range: 5-15 CO2 33.0 [...] <126 mg/dLsuggests IMPAIRED HOMEOSTASIS per A.D.A. criteria. 98-Qpc-541535:09 Lactic Acid Comments: [facility] [address] [place], [address] LACTIC ACID 1.5 mmol/L (Normal) Range: 0.4-2.0 66-Ezr-203207:09 Lipase Comments: 'TROP' Serial specimen #1, #2, #3, or #4: [address] [place] [address] [address]dxisattv[address] [place], [address] LIPASE 40 U/L (Abnormal) Range: 73-393 :09 Partial Thromboplast Time Comments: [facility] [address]int[address] [place], [address] PTT 38.3 s (Abnormal) Range: 24.1-36.2 :09 Prothrombin Time w/INR Comments: [facility] [address] [place], [address] INR 1.3 (Normal) PROTIME 15.8 s (Abnormal) Range: 11.7-14.9 :09 Troponin-I Comments: 'TROP' Serial specimen #1, #2, #3, or #4: [address] [place] [address] [address] [place], [address] TROPONIN-I < 0.02 ng/mL (Normal) Comments: TROPONIN-I EXPECTED VALUES <0.05 NEGATIVE 0.06 - 0.59 AT RISK OF RI > OR = 0.60 SUGGEST RI 63-Whp-273304:52 Potassium Comments: [facility] [address] [place], [address] K 3.4 mmol/L (Abnormal) Range: 3.5-5.1 54-Kcy-71524:10 Basic Metabolic Profile (BMP) Comments: DR AVINA ORDERED: BMP, CBC, MRSADR.NOELLE ORDERED: [facility] M[address]jbddgmk[address] [place], [address] GAP 12 (Normal) Range: 5-15 CO2 27.0 mmol/L (Normal) Range: 21.0-32.0 CL 99 mmol/L (Normal) Range: 98-107 K 2.7 mmol/L (Abnormal) Range: 3.5-5.1 Comments: Critical Result(s) Called at: 10:30:38 11/14/2016 by:Aura Ch to [facility] NA 138 mmol/L (Normal) Range: [...] 126 mg/dLsuggests DIABETES MELLITUS per A.D.A. criteria. 10-Sja-21783:10 CBC-Complete Blood Cnt No Diff Comments: DR AVINA ORDERED: BMP, CBC, MRSA ORDERED: ESTEBAN AVINA ORDERED: BMP, CBC, HANSADRNIGLE ORDERED: [facility] Qbokoiripn6471 [facility] [place], [address] MPV 10.8 fL (Normal) Range: 6.2-12.0 PLT [...] 4.2-5.4 WBC 7.1 K/mm3 (Normal) Range: 4.4-11.0 18-Bha-57974:10 MRSA/SAID SCREEN Comments: [facility] [address]awjb[address] [place], [address] ; another doc MRSA+SAID SCRN See Note (Normal) Comments: DR AVINA ORDERED: BMP, CBC, MRSA ORDERED: K MRSA/SAID SCRNS. AUREUS S. aureus NegativeMRSA MRSA Negative :09 MAGNESIUM (44304) Comments: PATIENT NOT FASTINGPERFORMED BY: Attainia6370 [facility] [id number] Magnesium, Serum 1.7 mg/dL (Normal) Range: 1.6-2.3 :09 Metabolic Panel, Basic Comments: PATIENT NOT FASTINGPERFORMED BY: Qubrit [facility] Bgyize2449 [facility] [id number] (10565) Calcium, Serum 8.7 mg/dL (Normal) Range: 8.7-10.3 [...] Glucose, Serum 97 mg/dL (Normal) Range: 65-99 20-Cwp-485118:45 Urinalysis, Complete Comments: How was Urine Obtained? LIQUID CHLORINE OPERATOR TO SPECIFYTr[facility] Health System [facility] Campus [address]fcegg[address] [place], [phone] MUCUS, URINE RARE {/hpf} (Normal) BACTERIA RARE [...] (Normal) CLARITY Cloudy (Normal) COLOR Yellow (Normal) 11-Wep-123797:53 CBC W/Diff, Automated Comments: [facility] [address]mp[address] [place], [place], [address] Absolute Lymph 1.08 {X10_3/ul} (Normal) Range: 0.83-4.51 [...] 4.2-5.4 WBC 6.1 K/mm3 (Normal) Range: 4.4-11.0 01-Vmk-110141:53 Comprehensive Metabolic Profil Comments: [facility] [address]soxkvd[address] [place], [address] GAP 12 (Normal) Range: 5-15 CO2 27.0 [...] per A.D.A. criteria. :53 Lactic Acid Comments: [facility] Vclmrjftru[address] [place], [address] LACTIC ACID 2.2 mmol/L (Abnormal) Range: 0.4-2.0 :53 Partial Thromboplast Time Comments: [facility] Z[address]oblvvjw[address] [place], [address] PTT 32.1 s (Normal) Range: 24.1-36.2 :53 Prothrombin Time w/INR Comments: [facility] [address]llmq[address] [place], [address] INR 1.0 (Normal) PROTIME 13.2 s (Normal) Range: 11.7-14.9 :54 Basic Metabolic Profile (BMP) Comments: [facility] [address] [place], [place], [address] GAP 10 (Normal) Range: 5-15 CO2 29.0 [...] :54 CBC-Complete Blood Cnt No Diff Comments: [facility] [address]bmjkzo[address] [place], [place], [address] MPV 10.1 fL (Normal) Range: 6.2-12.0 PLT [...] (Normal) Range: 4.4-11.0 :54 Hemoglobin A1c Comments: [facility] Molklpegxa[address] [place], [place], [address] HGB A1C 6.4 % (Abnormal) Range: 4.2-6.3 :54 Liver Profile Comments: [facility] [address]fj[address] [place], [place], [address] D BILI 0.27 mg/dL (Normal) Range: 0.00-0.30 T BILI 0.80 mg/dL (Normal) Range: 0.20-1.00 ALT 12 U/L (Normal) Range: 12-78 ALK P 82 U/L (Normal) Range: 45-117 AST 10 U/L (Abnormal) Range: 15-37 GLOB 3.5 g/dL (Normal) Range: 2.3-3.5 ALB 3.2 g/dL (Abnormal) Range: 3.4-5.0 T PROT 6.7 g/dL (Normal) Range: 6.4-8.2 :54 MRSA/SAID SCREEN Comments: [facility] [address] [place], [address] MRSA+SAID SCRN See Note (Normal) Comments: MRSA/SAID SCRNS. AUREUS S. aureus NegativeMRSA MRSA Negative :54 Partial Thromboplast Time Comments: [facility] [address] [place], [place], [address] PTT 40.7 s (Abnormal) Range: 24.1-36.2 :54 Prothrombin Time w/INR Comments: [facility] [address] [place], [address] INR 1.1 (Normal) PROTIME 14.3 s (Normal) Range: 11.7-14.9 :55 CBC W/Diff, Automated Comments: [facility] [address] [place], [address] Absolute Lymph 1.18 {X10_3/ul} (Normal) [...] 4.2-5.4 WBC 13.8 K/mm3 (Abnormal) Range: 4.4-11.0 73-Vcm-28183:55 Comprehensive Metabolic Profil Comments: [facility] [address]zbv[address] [place], [address] GAP 12 (Normal) Range: 5-15 CO2 24.0 [...] DIABETES MELLITUS per A.D.A. criteria. :22 MAGNESIUM (13367) Comments: PATIENT NOT FASTINGPERFORMED BY: [facility]6370 [facility] [id number] Magnesium, Serum 1.5 mg/dL (Abnormal) Range: 1.6-2.3 :22 POTASSIUM SERUM (47325) Comments: PATIENT NOT FASTINGPERFORMED BY: [facility]6370 [facility] [id number] Potassium, Serum 4.0 mmol/L (Normal) Range: 3.5-5.2 :13 Rapid Flu (88714 x 2) Influenza A Ag negative (Normal) :42 VITAMIN B12 AND FOLATES Comments: PATIENT NOT FASTINGPERFORMED BY: [facility]6370 [facility] [id number] (81397) Folate (Folic Acid), Serum 18.3 ng/mL (Normal) Comments: A serum folate concentration of less than 3.1 ng/mL isconsidered to represent clinical deficiency. Vitamin B12 650 pg/mL (Normal) Range: 211-946 :42 TSH (13361) Comments: PATIENT NOT FASTINGPERFORMED BY: [facility]6370 [facility] [id number] TSH 1.610 {uIU/mL} (Normal) Range: 0.450-4.500 26-Dpb-736739:42 Metabolic Panel, Comprehensive Comments: PATIENT NOT FASTINGPERFORMED BY: [facility]6370 [facility] [id number] (91318) ALT (SGPT) 9 [iU]/L (Normal) Range: 0-32 [...] (Normal) Range: 65-99 :26 HgA1C , Office (67000) HgA1C , Office 6.8 % (Normal) Range: 4.6 - 7.1 :26 Blood Glucose , Office (09413) Blood Glucose , Office 110 (Normal) :10 Culture, Body Fluid Comments: [facility] Reeoeaxxlk94[address] [place], [address] ; Another doc CUBF See [...] Fluid RBC, WBC AND Comments: LEFT KNEELEFT KNEEWSumma [facility] H[address]ixfhpqr6208 [place], [address] ; another doc Diff PATH [...] LKNEE (Normal) :30 Crystals, Body Fluid Comments: [facility] [address] [place], [address] PATH REV Reviewed (Normal) SOURCE/BF SYNOVIAL (Normal) CRYSTALS/BF SEE PATH REV (Normal) :30 Culture, Body Fluid Comments: [facility] [address] [place], [address] CUBF See Note (Normal) Comments: List Antibiotics Last 48 Hours? UNKList Antibiotics to be Started? UNKComments: LEFT KNEEGram StainCentrifuged Specimen? Culture performed on centrifuged specimen Gram Stain 2+ Red Blood Donya ls No White Blood Cells No organisms seen Body Fluid CultNO GROWTH IN 14 DAYS Cult, AnaerobicNo growth in 5 days. :48 CBC W/Diff, Automated Comments: [facility] [address] [place], [address] Absolute Lymph 2.23 {X10_3/ul} (Normal) [...] 4.2-5.4 WBC 7.0 K/mm3 (Normal) Range: 4.4-11.0 7-Xwt-000545:48 Comprehensive Metabolic Profil Comments: [facility] [address]jd[address] [place], [place], [address] GAP 10 (Normal) Range: 5-15 CO2 29.0 [...] 7-18 GLU 99 mg/dL (Normal) Range: 70-110 [id number]-Iod-[id number]:32 Comprehensive Metabolic Profil Comments: [facility] [id number] [place], [address] GAP 8 (Normal) Range: 5-15 CO2 31.0 [...] <126 mg/dLsuggests IMPAIRED HOMEOSTASIS per A.D.A. criteria. [id number]:32 Culture, Urine Comments: [facility] [id number] [facility] [address] [place], [place], [id number] CUUR See Note (Normal) Comments: Urine CultureORGANISM [...] $ <=20 S(NF) indicates non-formulary drug at [facility]. Approval by Infectious Disease Specialist required before non- formulary drugs may be ordered and/or dispensed. [id number] Urinalysis, Complete Comments: How was Urine Obtained? CLEAN [facility] [id number] [facility] [address] [place], [place], [id number] MUCUS, URINE 0 SEEN {/hpf} (Normal) BACTERIA [...] (Normal) COLOR Yellow (Normal) :56 POTASSIUM SERUM (69245) Comments: PATIENT NOT FASTINGPERFORMED BY: [facility]dK[facility] RehabilitationVmizjn5376 [facility] [id number] Potassium, Serum 4.4 mmol/L (Normal) Range: 3.5-5.2 :56 MAGNESIUM ([id number]) Comments: PATIENT NOT FASTINGPERFORMED BY: [facility]6[address] [facility] [id number] Magnesium, Serum 1.5 mg/dL (Abnormal) Range: 1.6-2.3 :29 CBC WITH MANUAL DIFF Comments: PATIENT WAS FASTINGPERFORMED BY: TapCrowdKessler Institute for RehabilitationFnwlvp8001 [facility] [id number] Information: [id number] (14993) Immature Grans (Abs) 0.0 {x10E3/uL} (Normal) Range: [...] 3.77-5.28 WBC 5.8 {x10E3/uL} (Normal) Range: 3.4-10.8 9-Adg-968801:15 CBC, Platelets & Auto Diff Comments: PATIENT NOT FASTINGPERFORMED BY: [facility] Wbxzbv6718 [facility] [id number] (37429) Immature Grans (Abs) 0.0 {x10E3/uL} (Normal) Range: [...] 3.77-5.28 WBC 14.0 {x10E3/uL} (Abnormal) Range: 3.4-10.8 1-Wpy-629182:15 Metabolic Panel, Comprehensive Comments: PATIENT NOT FASTINGPERFORMED BY: TapCrowdKessler Institute for RehabilitationQrasca2359 [facility] [id number] (34388) ALT (SGPT) 14 [iU]/L (Normal) Range: 0-32 [...] Glucose, Serum 98 mg/dL (Normal) Range: 65-99 71-Ndb-046001:28 Metabolic Panel, Comments: PATIENT WAS FASTINGPERFORMED BY: TapCrowdKessler Institute for RehabilitationOtxoxm6577 [facility] [id number] Information: [id number] Comprehensive (03313) ALT (SGPT) 13 [iU]/L (Normal) Range: 0-32 [...] Glucose, Serum 110 mg/dL (Abnormal) Range: 65-99 5-Nrm-326118:54 Urinalysis, Office (36121) UA - LEUKOCYTE ESTERASE Trace (Normal) UA - NITRITE Negative (Normal) URINE UROBILINGN JEWELS TIMED Normal mg/dL (Normal) UA - PROTEIN Negative mg/dL (Normal) UA - PH 6 (Abnormal) UA - BLOOD Negative (Normal) UA - SPECIFIC GRAVITY 1.015 (Normal) UA - KETONES Moderate mg/dL (Normal) UA - BILIRUBIN Negative (Normal) UA - GLUCOSE Negative (Normal) :21 Basic Metabolic Profile (BMP) Comments: [facility] [address] [place], [address] GAP 9 (Normal) Range: 5-15 [...] 200 mg/dLsuggests DIABETES MELLITUS per A.D.A. criteria. 45-Qwz-371303:21 CBC W/Diff, Automated Comments: [facility] [address] [place], [address] Absolute Lymph 3.53 {X10_3/ul} (Normal) [...] 4.2-5.4 WBC 13.8 K/mm3 (Abnormal) Range: 4.4-11.0 50-Znv-727672:21 Urinalysis, Complete Comments: Order Date: 04/25/16How was Urine Obtained? [facility] Ezdododzgy0592 [facility] [place], [address] MUCUS, URINE 0 SEEN {/hpf} [...] (Normal) CLARITY Cloudy (Normal) COLOR Yellow (Normal) 88-Ylh-113477:20 Lactic Acid Comments: [facility] Ryjkwycuyg2461 [facility] [place], [address] LACTIC ACID 4.8 mmol/L (Abnormal) Range: 0.4-2.0 Comments: Critical Result(s) Called at: 19:26:18 04/25/2016 by:Tiffany Oliva RN :32 CBC W/Diff, Automated Comments: [facility] [address] [place], [place], [address] Absolute Lymph 1.94 {X10_3/ul} (Normal) Range: 0.83-4.51 [...] Range: 4.4-11.0 :32 Comprehensive Metabolic Profil Comments: [facility] [address]rrq[address]ix[address] [place], [address] GAP 9 (Normal) Range: 5-15 [...] 126 mg/dLsuggests DIABETES MELLITUS per A.D.A. criteria. 87-Jmx-781974:01 CBC W/Diff, Automated Comments: [facility] [address] [place], [place], [address] Absolute Lymph 2.12 {X10_3/ul} (Normal) Range: 0.83-4.51 [...] 4.2-5.4 WBC 9.9 K/mm3 (Normal) Range: 4.4-11.0 :01 CRP Comments: [facility] [address] [place], [address] C-REACTIVE PROT < 2.90 mg/L (Normal) Range: 0.0-3.0 Comments: C-Reactive Protein (CRP) provides useful information for thediagnosis, therapy and monitoring of inflammatory processesand associated diseases. For the evaluation of Relative Riskfor Cardiovascular Dise ase, a High Sensitivity CRP (HSCRP)should be ordered. 59-Hwt-144684:01 Erythrocyte Sed Rate Comments: [facility] [address] [place], [place], [address] SED RATE 10 mm/h (Normal) Range: 0-30 23-Evs-997835:13 CK-MB Quantitative and Index Comments: 'TROP' Serial specimen #1, #2, #3, or #4: 1'CKMB' Serial Specimen #1, #2 or #3? [facility] [address] [place], [address] CKRI 1.5 % (Abnormal) Range: 0.0-1.4 Comments: RELATIVE INDEX >1.5% IS PRESUMPTIVELY POSITIVE CPKMB 1.0 ng/mL (Normal) Range: 0.0-5.0 Comments: CK-MB and RI Interpretation MB Relative Index Non-AMI <or= 5 NA Indeterminate > 5 <or= 4 AMI > 5 > 4 CPK TOTAL 65 U/L (Normal) Range: 26-192 67-Rxx-300384:13 Myoglobin, Serum Comments: [facility] (refer to report for specific site)refer to report for address and phone number Myoglobin, Ser 42 ng/mL (Normal) Range: 25-58 Comments: Performed at: [address] [id number] Director: Edil Robertson PhD, Phone: [phone] 97-Ggz-779000:13 Troponin-I Comments: 'TROP' Serial specimen #1, #2, #3, or #4: 1'CKMB' Serial Specimen #1, #2 or #3? 1[facility] [address] [place] [address], [id number] TROPONIN-I < 0.02 ng/mL (Normal) Comments: TROPONIN-I EXPECTED VALUES <0.05 NEGATIVE 0.06 - 0.59 AT RISK OF RI > OR = 0.60 SUGGEST RI 38-Dvy-194060:19 URINE HANSA CULTURE-JEWELS COL Comments: PATIENT NOT FASTINGPERFORMED BY: [address] [id number] Information: SRC:[facility] S26468 COUNT (37271) Antimicrobial MIHEAD (Normal) Comments: S = Susceptible; [...] mL (Abnormal) Urine Final report Culture,Comprehensive (Abnormal) 76-Tvf-358743:54 Urinalysis, Office (36468) UA - LEUKOCYTE ESTERASE Small (Normal) UA - NITRITE Positive (Normal) URINE UROBILINGN JEWELS TIMED Normal mg/dL (Normal) UA - PROTEIN Trace mg/dL (Normal) UA - PH 7 (Normal) UA - BLOOD Negative (Normal) UA - SPECIFIC GRAVITY 1.025 (Normal) UA - KETONES Small mg/dL (Normal) UA - BILIRUBIN Small (Normal) UA - GLUCOSE Negative (Normal) 52-Omj-913628:38 Blood Glucose , Office (48204) Blood Glucose , Office 85 (Normal) :38 Basic Metabolic Profile (BMP) Comments: Is Patient Taking Vitamins or Folic Acid Supplements? [facility] [address] [place], [place], [address] GAP 9 (Normal) Range: 5-15 CO2 28.0 [...] Patient Taking Vitamins or Folic Acid Supplements? [facility] H[address]arsiqzvn[address] [place], [place], [address] FOLATES 13.40 ng/mL (Normal) Range: 3.1-17.5 :38 Vitamin B12 723 pg/mL (Normal) Comments: [facility] [address] [place], [address] Range: 211-911 :32 CBC W/Diff, Automated Comments: [facility] [address] [place], [address] ; ordered by Dr. Colmenares Absolute Lymph [...] Range: 4.4-11.0 :32 Comprehensive Metabolic Profil Comments: [facility] [address] [place], [place], [address] GAP 5 (Normal) Range: 5-15 CO2 31.0 [...] mg/dL (Normal) Range: 70-110 :03 LIPID PANEL (17836) Comments: PATIENT WAS FASTINGPERFORMED BY: CB [facility] Vwlexs2194 [facility] [id number] BY: BN [facility] [address] [id number] LDL/HDL Ratio 3.2 {ratio_units} (Normal) Range: 0.0-3.2 [...] 1, 25-DIHYDROXY Comments: PATIENT WAS FASTINGPERFORMED BY: [employer] TradingScreen [facility] [id number] BY: [place]row[place] [id number] (13940) Calcitriol(1,25 di-OH Vit D) 51.7 pg/mL (Normal) Range: 19.9-79.3 :03 MICROALBUMIN: CREATININE Comments: PATIENT WAS FASTINGPERFORMED BY: [employer] [facility] [id number] BY: [place]row[place] [id number] RATIO (45079) AND (85279) Microalb/Creat Ratio 35.5 {mg/g_creat} (Abnormal) Range: 0.0-30.0 Microalbumin, Urine 42.6 ug/mL (Abnormal) Range: 0.0-17.0 Creatinine, Urine 120.0 mg/dL (Normal) Range: 15.0-278.0 :03 METABOLIC PANEL, Comments: PATIENT WAS FASTINGPERFORMED BY: [employer] Cbnbon3535 [facility] [id number] BY: Loomia[address] [id number] COMPREHENSIVE (18557) ALT (SGPT) 14 [iU]/L (Normal) Range: 0-32 [...] Glucose, Serum 137 mg/dL (Abnormal) Range: 65-99 75-Kje-15491:03 CBC, PLATELETS & AUT DIFF Comments: PATIENT WAS FASTINGPERFORMED BY: CB [facility] Xbmfhd2072 [facility] [id number] BY: BN [facility] [address] [id number] Information: [id number] (15104) Immature Grans (Abs) 0.0 {x10E3/uL} (Normal) Range: [...] (THYROID STIMULATING Comments: PATIENT WAS FASTINGPERFORMED BY: [employer] Adbpmn9776 [facility] [id number] BY: TapCrowd[address] [id number] HORMONE) (30192) TSH 3.840 {uIU/mL} (Normal) Range: 0.450-4.500 :03 VITAMIN B12 AND FOLATES Comments: PATIENT WAS FASTINGPERFORMED BY: Risk I/Olin[address] [place] [address] [id number] BY: Loomia[address] [id number] (87885) Folate (Folic Acid), Serum 14.3 ng/mL (Normal) Comments: A serum folate concentration of less than 3.1 ng/mL isconsidered to represent clinical deficiency. Vitamin B12 742 pg/mL (Normal) Range: 211-946 :56 HgA1C , Office (05520) HgA1C , Office 6.8 % (Normal) Range: 4.6 - 7.1 :56 Blood Glucose , Office (16606) Blood Glucose , Office 128 (Normal) :36 CBC W/Diff, Automated Comments: [facility] [address] [place], [place], [address] Absolute Lymph 2.25 {X10_3/ul} (Normal) Range: 0.83-4.51 [...] Range: 4.4-11.0 :36 Comprehensive Metabolic Profil Comments: [facility] [address] [place], [address] GAP 8 (Normal) Range: 5-15 CO2 28.0 [...] 126 mg/dLsuggests DIABETES MELLITUS per A.D.A. criteria. 7-Wuy-401047:12 ANTINUCLEAR ANTIBODIES DIRECT Comments: [facility] (refer to report for specific site)refer to report for address and phone number [place]-DIRECT Negative (Normal) Comments: Performed at: [facility] [id number] Director: Edil Robertson PhD, Phone: [phone] 5-Ycb-371596:12 CBC W/Diff, Automated Comments: [facility] [address]rf[address] [place], [place], [address] Absolute Lymph 1.93 {X10_3/ul} (Normal) Range: 0.83-4.51 [...] report for address and phone number ANTI-CCP 359086 4 {units} (Normal) Range: 0-19 Comments: Negative <20 Weak positive 20 - 39 Moderate positive 40 - 59 Strong positive >59 3-Rxe-948009:12 Comprehensive Metabolic Profil Comments: [facility] [address] [place], [place], [address] GAP 6 (Normal) Range: 5-15 CO2 33.0 [...] 7-18 GLU 95 mg/dL (Normal) Range: 70-110 6-Fqb-480834:12 Hep B Surface Antibodies Comments: [facility] (refer to report for specific site)refer to report for address and phone number Hep B Loi AB Reactive (Normal) Comments: Non Reactive: Inconsistent with immunity, less than 10 mIU/mL Reactive: Consistent with immunity, greater than 9.9 mIU/mL 2-Ila-873380:12 Hepatitis B Surface Ag Comments: [facility] (refer to report for specific site)refer to report for address and phone number HB SURF AG Negative (Normal) 6-Egy-178969:12 Hepatitis B Core AB IgM Comments: [facility] (refer to report for specific site)refer to report for address and phone number HB CORE [id number] Negative (Normal) Comments: Performed at: - [facility] [id number] Director: Edil Robertson PhD, Phone: [phone] at: 2Q - [facility] VOO0221 [place], [place] [id number] Director: Jared Rodriguez PhD, Phone: [phone] at: - [facility] [id number] Director: Dylan Matthews MD, Phone: [phone] 5-Ldt-472171:12 Hepatitis C Antibodies Comments: [facility] (refer to report for specific site)refer to [...] a more specific supplemental or PCR testing. [facility] offers HCV Ab w/Reflex to Verification test #980141. :12 HLA B27 Negative (Normal) Comments: [facility] (refer to report for specific site)refer to report for address and phone number Comments: HLA-B*27 NegativeHLA allele interpretation for all loci based on IMGT/HLAdatabase version 3.15A [facility] County HospitalIA ID Number [id number] test was performed using PCR (Polymerase ChainReaction)/SSOP (Sequence Specific Oligonucleotide Probes)technique. SBT (Sequence Based Typing) and/or SSP(Sequence Specific Primers) may be used as supplementalmethods when necessary. Please contact HLA CustomerService at [phone] if you have any questions. Director of HLA Laboratory Dr Jared Rodriguez, PhD :12 Rheumatoid Factor Comments: [facility] [address] [place], [address] RHEUMATOID FAC < 10.0 {IU/mL} (Normal) 5-Qoo-072311:12 Vitamin D,25 Hydroxy Comments: [facility] [address] [place], [address] Vitamin D 25-OH 50.9 ng/mL (Normal) Comments: Vitamin D 25(OH) Status Range Deficiency <20 ng/mL (50nmol/L) Insuffciency 20 - 30 ng/mL (50 - 75 nmol/L) Sufficiency 30 - 100 ng/mL (75 - 250 nmol/L) Toxicity >100 ng/mL (>250 nmol/L) 09-Azo-65310:37 LIPID PANEL (31578) Comments: PATIENT WAS FASTINGPERFORMED BY: CableMatrix TechnologiesCritical access hospital [id number] LDL/HDL Ratio 2.8 {ratio_units} (Normal) Range: 0.0-3.2 [...] - 169 >19 years 100 - 199 07-Fez-96117:37 CBC, PLATELETS & AUT DIFF Comments: PATIENT WAS FASTINGPERFORMED BY: [employer]ubrit [facility] Kmceck0288 [facility] [id number] Information: [id number] (25733) Immature Grans (Abs) 0.0 {x10E3/uL} (Normal) Range: [...] B-12 (CYANOCOBALAMIN) Comments: PATIENT WAS FASTINGPERFORMED BY: [employer] [facility] Fohiyt4231 [place] [id number] (08817) Vitamin B12 871 pg/mL (Normal) Range: 211-946 :37 Vitamin D Hydroxy (00372) Comments: PATIENT WAS FASTINGPERFORMED BY: [facility] Qppgkq9274 [address] Annai SystemsDublin [place] [id number] Vitamin D, 25-Hydroxy 69.6 ng/mL (Normal) Range: 30.0-100.0 Comments: Vitamin D deficiency has been defined by the [place] ofMedicine and an Endocrine Society practice guideline as alevel of serum 25-OH vitamin D less than 20 ng/mL (1,2).The Endocrine Society went on to further define vitamin Dinsufficiency as a level between 21 and 29 ng/mL (2).1. IOM ([place] of Medicine). 2010. Dietary reference intakes for calcium and D. [place]: The National Academies Press.2. Delma MF, Mckenna ABDALLA, Dane MACKENZIE, et al. Evaluation, treatment, and prevention of vitamin D deficiency: an Endocrine Society clinical practice guideline. JCEM. 2010; 96(7):1911-30. :37 METABOLIC PANEL, COMPREHENSIVE Comments: PATIENT WAS FASTINGPERFORMED BY: [facility] Mfhgcj8126 [facility] [id number]; apt. 07-01-15 (44249) ALT (SGPT) 10 [iU]/L (Normal) Range: 0-32 [...] (Abnormal) Range: 65-99 :02 HgA1C , Office (97367) HgA1C , Office 7.1 % (Normal) Range: 4.6 - 7.1 49-Lpv-744266:24 EBV Panel (75938) Comments: PATIENT NOT FASTINGPERFORMED BY: [place] 4316570 [facility] [id number] Interpretation: SPRCS (Normal) Comments: EBV Interpretation Chart [...] <36.0 Equivocal 36.0 - 43.9 Positive >43.9 13-Med-892146:24 CBC W/AUTO DIFF WBC Comments: PATIENT NOT FASTINGPERFORMED BY: [facility]6370 [facility] [id number] Information: [id number] (56064) Immature Grans (Abs) 0.0 {x10E3/uL} (Normal) Range: [...] 3.77-5.28 WBC 6.7 {x10E3/uL} (Normal) Range: 3.4-10.8 30-Mnw-690948:37 HANSA CULTURE-OTHER (12930) Comments: PATIENT NOT FASTINGPERFORMED BY: [employer] Mmecbo6283 [facility] [id number] Information: SRC:THRT [id number] Result 1 RRF (Normal) Comments: Routine respiratory vicente Upper Respiratory Culture Final report (Normal) 89-Gco-293822:30 Rapid Strep Test, Office (14088) Rapid Strep Test, Office Negative (Normal) 06-Feb-20159:15 CBC, Platelet, No Differential Comments: PATIENT WAS FASTINGPERFORMED BY: TapCrowdPinon Health CenterUqfhva1148 [facility] [id number] Platelets 245 {x10E3/uL} (Normal) Range: 150-379 RDW [...] Panel (14) Comments: PATIENT WAS FASTINGPERFORMED BY: LabCoKessler Institute for RehabilitationLyzvwp7982 [facility] [id number] Information: [id number] ALT (SGPT) 8 [iU]/L (Normal) Range: 0-32 [...] With LDL/HDL Comments: PATIENT WAS FASTINGPERFORMED BY: [place]Gr[place] 4316570 [facility] [id number] Ratio LDL/HDL Ratio 3.7 {ratio_units} Range: 0.0-3.2 [...] pg/mL (Normal) Comments: PATIENT WAS FASTINGPERFORMED BY: [facility]iaHenry [facility] Hospital6370 [facility] [id number] :15 Range: 211-946 Vitamin D, 25-Hydroxy 56.4 ng/mL (Normal) Comments: PATIENT WAS FASTINGPERFORMED BY: [facility]6370 [facility] [id number] :15 Range: 30.0-100.0 Comments: Vitamin D deficiency has been defined by the [place] ofMedicine and an Endocrine Society practice guideline as alevel of serum 25-OH vitamin D less than 20 ng/mL (1,2).The Endocrine Society went on to further define vitamin Dinsufficiency as a level between 21 and 29 ng/mL (2).1. IOM ([place] of Medicine). 2010. Dietary reference intakes for calcium and D. [place]: The National Academies Press.2. Mckenna Christie, Dane MACKENZIE, et al. Evaluation, treatment, and prevention of vitamin D deficiency: an Endocrine Society clinical practice guideline. JCEM. 2010; 96(7):1911-30. :33 HgA1C , Office (86867) HgA1C , Office 6.4 % (Normal) Range: 4.6 - 7.1 :27 Potassium Comments: Test performed at:[facility] [address] [place] [address] K 3.5 mmol/L (Normal) Range: 3.5-5.1 :59 Vitamin D Hydroxy (67497) Comments: PATIENT NOT FASTINGPERFORMED BY: Table870 [place] [id number] Vitamin D, 25-Hydroxy 40.6 ng/mL (Normal) Range: 30.0-100.0 Comments: Vitamin D deficiency has been defined by the [place] ofMedicine and an Endocrine Society practice guideline as alevel of serum 25-OH vitamin D less than 20 ng/mL (1,2).The Endocrine Society went on to further define vitamin Dinsufficiency as a level between 21 and 29 ng/mL (2).1. IOM ([place] of Medicine). 2010. Dietary reference intakes for calcium and D. [place]: The National Academies Press.2. Delma RIVERA, Mckenna ABDALLA, Dane MACKENZIE, et al. Evaluation, treatment, and prevention of vitamin D deficiency: an Endocrine Society clinical practice guideline. JCEM. 2010; 96(7):1911-30. :59 T4, FREE (THYROXINE) Comments: PATIENT NOT FASTINGPERFORMED BY: [facility] Oltfzw6704 [place] [id number] Information: [id number] (14484) T4,Free(Direct) 1.22 ng/dL (Normal) Range: 0.82-1.77 :59 T3, FREE (TRIDOTHYRONINE) (47663) Comments: PATIENT NOT FASTINGPERFORMED BY: LabHenry [facility]6370 [facility] [id number] Triiodothyronine,Free,Serum 3.2 pg/mL (Normal) Range: 2.0-4.4 :59 TSH (17313) Comments: PATIENT NOT FASTINGPERFORMED BY: [facility] Vdlfdd2790 [facility] [id number] TSH 2.460 {uIU/mL} (Normal) Range: 0.450-4.500 :59 SED RATE ERYTHROCYTE (32339) Comments: PATIENT NOT FASTINGPERFORMED BY: LabHenry [facility]6370 [facility] [id number] Sedimentation Rate-Westergren 3 mm/h (Normal) Range: 0-40 :59 C-REACTIVE PROTEIN (35389) Comments: PATIENT NOT FASTINGPERFORMED BY: [facility]6370 [facility] [id number] C-Reactive Protein, Quant 2.6 mg/L (Normal) Range: 0.0-4.9 :06 TSH (56831) Comments: PATIENT NOT FASTINGPERFORMED BY: LabHenry [facility]6370 [facility] [id number] TSH 1.920 {uIU/mL} (Normal) Range: 0.450-4.500 :06 CBC with auto diff Comments: PATIENT NOT FASTINGPERFORMED BY: [facility]6370 [facility] [id number] Information: [id number] (91977) Immature Grans (Abs) 0.0 {x10E3/uL} (Normal) Range: [...] 3.77-5.28 WBC 7.9 {x10E3/uL} (Normal) Range: 3.4-10.8 9-Pnp-113000:06 METABOLIC PANEL, COMPREHENSIVE Comments: PATIENT NOT FASTINGPERFORMED BY: [facility]CoKessler Institute for RehabilitationTjuhvs0889 [facility] [id number] (77086) ALT (SGPT) 6 [iU]/L (Normal) Range: 0-32 [...] Glucose, Serum 111 mg/dL (Abnormal) Range: 65-99 4-Fqc-386388:09 URINE HANSA CULTURE (JEWELS Comments: PATIENT NOT FASTINGPERFORMED BY: LabCoKessler Institute for RehabilitationJvrodt7733 [facility] [id number] Information: SRC:[facility] [id number] COL COUNT) (70180) Result 1 CNSNSS (Abnormal) Comments: Coagulase negative [...] S Urine Final report Culture,Comprehens (Abnormal) ananth 4-Nww-676922:54 Urinalysis, Office (07400) UA - LEUKOCYTE ESTERASE Negative (Normal) UA - NITRITE Negative (Normal) URINE UROBILINGN JEWELS TIMED Normal mg/dL (Normal) UA - PROTEIN Negative mg/dL (Normal) UA - PH 6.5 (Normal) UA - BLOOD Negative (Normal) UA - SPECIFIC GRAVITY 1.015 (Normal) UA - KETONES Negative mg/dL (Normal) UA - BILIRUBIN Negative (Normal) UA - GLUCOSE Negative (Normal) 66-Ein-749864:40 Urine Drug Screen (VISTA) Comments: Has pt arrived? YTest performed at:[facility] [address]wf[address] [place] [address] THC NEGATIVE (Normal) PCP NEGATIVE [...] MUST BE ORDERED SEPARATELY. USE TESTMNEMONIC: UTCA 52-Jat-786288:25 Acetaminophen (Tylenol) Level Comments: Test performed at:[facility] Kzpfjhoabz0246 [facility] [place] [address] ACETAMINOPHEN < 2.0 ug/mL (Abnormal) Range: 10.0-30.0 20-Fyy-692376:25 Basic Metabolic Profile (BMP) Comments: Test performed at:[facility] [address] [place] [address] GAP 8 (Normal) Range: 5-15 [...] 126 mg/dLsuggests DIABETES MELLITUS per A.D.A. criteria. 03-Cag-215797:25 CBC W/Diff, Automated Comments: Test performed at:[facility] [address]cb[address] [place] [address] Absolute Lymph 0.55 {X10_3/ul} (Abnormal) Range: 0.83-4.51 [...] 4.2-5.4 WBC 11.3 K/mm3 (Abnormal) Range: 4.4-11.0 75-Oot-882614:25 Partial Thromboplast Time Comments: Test performed at:[facility] [address]apxqpsup[address] [place] [address] PTT 31.9 s (Normal) Range: 24.1-36.2 88-Mov-221049:25 Prothrombin Time w/INR Comments: Test performed at:[facility] N[address]qztfxtg7[address] [place] [address] INR 1.1 (Normal) PROTIME 14.0 s (Normal) Range: 11.7-14.9 :22 Basic Metabolic Profile (BMP) Comments: Test performed at:[facility] T[address]ljtlwpxx50[address] [place] [address] GAP 8 (Normal) Range: 5-15 CO2 31.0 [...] Blood Cnt No Diff Comments: Test performed at:[facility] [address] [place] [address] MPV 10.0 fL (Normal) Range: 6.2-12.0 [...] Blood Cnt No Diff Comments: Test performed at:[facility] Bljvipwobb3431 [place] [address] MPV 10.4 fL (Normal) Range: [...] Basic Metabolic Profile (BMP) Comments: Test performed at:[facility] Rvfouozepz7003 [place] [address] GAP 8 (Normal) Range: 5-15 [...] 126 mg/dLsuggests DIABETES MELLITUS per A.D.A. criteria. 89-Gsq-26039:52 CBC-Complete Blood Cnt No Diff Comments: Test performed at:[facility] Fjwtptpecf4174 [facility] [place] [address] MPV 10.0 fL (Normal) Range: [...] 4.2-5.4 WBC 8.7 K/mm3 (Normal) Range: 4.4-11.0 32-Jxx-244271:00 Bedside Glucose Comments: Test performed at:[facility] Wbgbwupjff8172 [place], [place] [address] BEDSIDE GLU 138 mg/dL (Abnormal) Range: 70-110 Comments: No Action RequiredMANAGEMENT OF PATIENT CARE PER NURSING PROTOCOL 31-Twf-366643:12 Bedside Glucose Comments: Test performed at:[facility] Tvuzcajeqa6622 [place] [address] BEDSIDE GLU 108 mg/dL (Normal) Range: 70-110 Comments: No Action RequiredMANAGEMENT OF PATIENT CARE PER NURSING PROTOCOL 29-Aqf-13462:07 VITAMIN B-12 (CYANOCOBALAMIN) Comments: PATIENT WAS FASTINGPERFORMED BY: [facility] Lkyeek5589 [facility] [id number] (21116) Vitamin B12 498 pg/mL (Normal) Range: 211-946 :07 MICROALBUMIN: CREATININE RATIO Comments: PATIENT WAS FASTINGPERFORMED BY: [facility]6370 [facility] [id number] (90776) AND (20824) Microalb/Creat Ratio 24.7 {mg/g_creat} (Normal) Range: 0.0-30.0 Microalbumin, Urine 36.2 ug/mL (Abnormal) Range: 0.0-17.0 Creatinine, Urine 146.6 mg/dL (Normal) Range: 15.0-278.0 :07 CBC W/AUTO DIFF WBC Comments: PATIENT WAS FASTINGPERFORMED BY: TapCrowdKessler Institute for RehabilitationRyxolm8236 [facility] [id number] Information: [id number] (08777) Immature Grans (Abs) 0.0 {x10E3/uL} (Normal) Range: [...] 7.0 {x10E3/uL} (Normal) Range: 3.4-10.8 :07 TSH (64021) Comments: PATIENT WAS FASTINGPERFORMED BY: TapCrowdKessler Institute for RehabilitationOxtpdi6163 [facility] [id number] TSH 4.510 {uIU/mL} (Abnormal) Range: 0.450-4.500 :07 LIPID PANEL (10580) Comments: PATIENT WAS FASTINGPERFORMED BY: LabProlifiq SoftwareKessler Institute for RehabilitationSvxyyh7490 [facility] [id number] VLDL Cholesterol Peg VLDLCH mg/dL (Normal) Range: [...] PANEL, COMPREHENSIVE Comments: PATIENT WAS FASTINGPERFORMED BY: TapCrowdKessler Institute for RehabilitationHwcszo1890 [facility] [id number] (11682) ALT (SGPT) 10 [iU]/L (Normal) Range: 0-32 [...] (Abnormal) Range: 65-99 :22 HgA1C , Office (43754) HgA1C , Office 6.9 % (Normal) Range: [...] See Note (Normal) Comments: Results called on 08/07/14-301 by BRISSA ([facility]) [phone]. Comments: Copy of report sent to Infection Control Printer MS#[id number] 08/07/14 5399 [facility]. RESULTS PRINTED MS#[id number] S. AUREUS S. aureus PositiveMRSA MRSA Negative 36-Mwx-47286:34 VITAMIN B-12 (CYANOCOBALAMIN) Comments: PATIENT WAS FASTINGPERFORMED BY: LabHenry [facility]6370 [facility] [id number] (74899) Vitamin B12 1631 pg/mL (Abnormal) Range: 211-946 :34 CBC W/AUTO DIFF WBC Comments: PATIENT WAS FASTINGPERFORMED BY: LabCoKessler Institute for RehabilitationTncyea0120 [facility] [id number] Information: [id number] (33827) Immature Grans (Abs) 0.0 {x10E3/uL} (Normal) Range: [...] 3.77-5.28 WBC 4.0 {x10E3/uL} (Normal) Range: 3.4-10.8 12-Gpa-71865:34 METABOLIC PANEL, COMPREHENSIVE Comments: PATIENT WAS FASTINGPERFORMED BY: [facility]6370 [facility] [id number] (49462) ALT (SGPT) 10 [iU]/L (Normal) Range: 0-32 [...] mg/dL (Abnormal) Range: 65-99 :34 LIPID PANEL (30378) Comments: PATIENT WAS FASTINGPERFORMED BY: LabCoKessler Institute for RehabilitationHzzril4699 [facility] [id number] LDL/HDL Ratio 3.3 {ratio_units} (Abnormal) Range: 0.0-3.2 [...] Cholesterol, Total 190 mg/dL (Normal) Range: 100-199 04-Ivp-41577:12 Microscopic Examination Comments: PATIENT WAS FASTINGPERFORMED BY: LabCo Yozilf8416 [facility] [id number] Bacteria None seen (Normal) Epithelial Cells (non renal) 0-10 {/hpf} (Normal) Range: 0 - 10 RBC None seen {/hpf} (Normal) Range: 0 - 2 WBC 0-5 {/hpf} (Normal) Range: 0 - 5 :12 TSH (84084) Comments: PATIENT WAS FASTINGPERFORMED BY: [facility] Jqyxfk7819 [facility] [id number]; non-emergent till apt this week TSH 1.560 {uIU/mL} (Normal) Range: 0.450-4.500 :12 URINALYSIS, W/ MICRO (15820) Comments: PATIENT WAS FASTINGPERFORMED BY: [facility] Dxaeer1153 [facility] [id number] Microscopic Examination See below: (Normal) Comments: Microscopic was indicated and was performed. Microscopic Examination MICRON (Normal) Comments: Microscopic follows if indicated. Nitrite, Urine Negative (Normal) Urobilinogen,Semi-Qn 0.2 mg/dL (Normal) Range: 0.0-1.9 Bilirubin Negative (Normal) Occult Blood Negative (Normal) Ketones Negative (Normal) Glucose Negative (Normal) Protein Trace (Normal) WBC Esterase Negative (Normal) Appearance Clear (Normal) Urine-Color Yellow (Normal) pH 8.0 (Abnormal) Range: 5.0-7.5 Specific [place] 1.014 (Normal) Range: 1.005-1.030 :12 Vitamin D Hydroxy (16758) Comments: PATIENT WAS FASTINGPERFORMED BY: [facility] Vnsyep7794 [facility] [id number] Vitamin D, 25-Hydroxy 42.2 ng/mL (Normal) Range: 30.0-100.0 Comments: Vitamin D deficiency has been defined by the [place] ofMedicine and an Endocrine Society practice guideline as alevel of serum 25-OH vitamin D less than 20 ng/mL (1,2).The Endocrine Society went on to further define vitamin Dinsufficiency as a level between 21 and 29 ng/mL (2).1. IOM ([place] of Medicine). 2010. Dietary reference intakes for calcium and D. [place]: The National Academies Press.2. Delma MF, Mckenna NC, Dane MACKENZIE, et al. Evaluation, treatment, and prevention of vitamin D deficiency: an Endocrine Society clinical practice guideline. JCEM. 2010; 96(7):1911-30. :12 MICROALBUMIN: CREATININE RATIO Comments: PATIENT WAS FASTINGPERFORMED BY: AquaMobile Jcybyf2849 [facility] [id number] (07901) AND (80314) Microalb/Creat Ratio 4.7 {mg/g_creat} (Normal) Range: 0.0-30.0 Creatinine, Urine 49.4 mg/dL (Normal) Range: 15.0-278.0 Microalbumin, Urine 2.3 ug/mL (Normal) Range: 0.0-17.0 :12 METABOLIC PANEL, Comments: PATIENT WAS FASTINGPERFORMED BY: ezeep6370 [facility] [id number] Information: [id number] COMPREHENSIVE (87719) ALT (SGPT) 12 [iU]/L (Normal) Range: 0-32 [...] mg/dL (Abnormal) Range: 65-99 :12 LIPID PANEL (03430) Comments: PATIENT WAS FASTINGPERFORMED BY: RadiumOneNovant [facility] [id number] LDL/HDL Ratio 2.7 {ratio_units} (Normal) Range: 0.0-3.2 [...] B-12 (CYANOCOBALAMIN) Comments: PATIENT WAS FASTINGPERFORMED BY: RadiumOneNovant Health [facility] [id number] (53754) Vitamin B12 287 pg/mL (Normal) Range: 211-946 :34 HgA1C , Office (94896) HgA1C , Office 6.3 % (Normal) Range: 4.6 - 7.1 :55 Creatine Kinase Total (40909) Comments: PATIENT NOT FASTINGPERFORMED BY: [employer] EmboMedicsResearch [facility] [id number] Creatine Kinase,Total,Serum 105 U/L (Normal) Range: 24-173 :55 TSH (29203) Comments: PATIENT NOT FASTINGPERFORMED BY: [employer] Bxudpb3167 [facility] [id number] TSH 1.590 {uIU/mL} (Normal) Range: 0.450-4.500 :55 METABOLIC PANEL, Comments: PATIENT NOT FASTINGPERFORMED BY: CLARITA [facility] Pkijxb7290 [facility] [id number] Information: [id number] COMPREHENSIVE (41464) ALT (SGPT) 13 [iU]/L (Normal) Range: 0-32 [...] (Abnormal) Range: 65-99 :33 HgA1C , Office (35203) HgA1C , Office 6.7 % (Normal) Range: 4.6 - 7.1 :46 MICROALBUMIN: CREATININE RATIO Comments: PATIENT WAS FASTINGPERFORMED BY: TapCrowd Viupgm3456 [facility] Centerblin [place] [id number] (56881) AND (85011) Microalb/Creat Ratio 20.0 {mg/g_creat} (Normal) Range: 0.0-30.0 Microalbumin, Urine 21.7 ug/mL (Abnormal) Range: 0.0-17.0 Creatinine, Urine 108.5 mg/dL (Normal) Range: 15.0-278.0 :46 TSH (83841) Comments: PATIENT WAS FASTINGPERFORMED BY: TapCrowd Kraird2113 [facility] Care[facility] [place] [id number] TSH 2.670 {uIU/mL} (Normal) Range: 0.450-4.500 :46 Vitamin D Hydroxy (77297) Comments: PATIENT WAS FASTINGPERFORMED BY: TapCrowd Hkowzd0996 [facility] Centerbl[facility] [place] [id number] Vitamin D, 25-Hydroxy 42.9 ng/mL (Normal) Range: 30.0-100.0 Comments: Vitamin D deficiency has been defined by the [place] ofMedicine and an Endocrine Society practice guideline as alevel of serum 25-OH vitamin D less than 20 ng/mL (1,2).The Endocrine Society went on to further define vitamin Dinsufficiency as a level between 21 and 29 ng/mL (2).1. IOM ([place] of Medicine). 2010. Dietary reference intakes for calcium and D. [place]: The National Academies Press.2. Delma MF, Mckenna NC, Loree-Werner MACKENZIE, et al. Evaluation, treatment, and prevention of vitamin D deficiency: an Endocrine Society clinical practice guideline. JCEM. 2010; 96(7):1911-30. :46 CBC, PLATELETS & AUT DIFF Comments: PATIENT WAS FASTINGPERFORMED BY: [facility] Weukow4283 [facility] [id number] Information: [id number] (73752) Immature Grans (Abs) 0.0 {x10E3/uL} (Normal) Range: [...] 3.77-5.28 WBC 8.7 {x10E3/uL} (Normal) Range: 3.4-10.8 95-Azy-334245:46 VITAMIN B-12 (CYANOCOBALAMIN) Comments: PATIENT WAS FASTINGPERFORMED BY: CLARITA TapCrowdKessler Institute for RehabilitationWwexaw2026 [facility] [id number] (64573) Vitamin B12 382 pg/mL (Normal) Range: 211-946 31-Jao-147040:46 METABOLIC PANEL, COMPREHENSIVE Comments: PATIENT WAS FASTINGPERFORMED BY: LabCoKessler Institute for RehabilitationSulznj1310 [facility] [id number] (26277) ALT (SGPT) 15 [iU]/L (Normal) Range: 0-32 [...] Glucose, Serum 130 mg/dL (Abnormal) Range: 65-99 94-Rtm-949214:46 LIPID PANEL (30862) Comments: PATIENT WAS FASTINGPERFORMED BY: LabCoKessler Institute for RehabilitationLahtsh9624 [facility] [id number] LDL/HDL Ratio 3.4 {ratio_units} (Abnormal) Range: 0.0-3.2 LDL Cholesterol Calc 130 mg/dL (Abnormal) Range: 0-99 VLDL Cholesterol Peg 57 mg/dL (Abnormal) Range: 5-40 HDL Cholesterol 38 mg/dL (Abnormal) Comments: According to ATP-III Guidelines, HDL-C >59 mg/dL is considered anegative risk factor for CHD. Triglycerides 287 mg/dL (Abnormal) Range: 0-149 Cholesterol, Total 225 mg/dL (Abnormal) Range: 100-199 :44 HgA1C , Office (65640) HgA1C , Office 6.6 % (Normal) Range: 4.6 - 7.1 :43 CBC, Platelets & Auto Diff Comments: PATIENT NOT FASTINGPERFORMED BY: LabCoKessler Institute for RehabilitationAhxuba5104 [facility] [id number] Information: [id number] (08964) Immature Grans (Abs) 0.0 {x10E3/uL} (Normal) Range: [...] (Normal) Range: 3.4-10.8 :43 Metabolic Panel, Basic (76494) Comments: PATIENT NOT FASTINGPERFORMED BY: [facility]6370 [facility] [id number] Calcium, Serum 9.4 mg/dL (Normal) Range: 8.6-10.2 [...] mg/dL (Abnormal) Range: 65-99 :10 HANSA CULTURE-OTHER (26186) Comments: PATIENT NOT FASTINGPERFORMED BY: [facility]6370 [facility] [id number] Information: SRC:THRT [id number] Result 1 RFMNR (Normal) Comments: Mixed growth consisting of multiple gram negative rods and routinerespiratory vicente. Upper Respiratory Culture Final report (Normal) :56 Rapid Strep Test, Office (50882) Rapid Strep Test, Office Negative (Normal) :03 Blood Glucose , Office (85895) Blood Glucose , Office 150 (Normal) :14 PPD (76842) Comments: Lot: [id number]: 12/17Amt: 0.1mlRoute: intradermalSite: R FAGiven by: ANGEL Merlos SKIN TEST INTRADERMAL TB negative (Normal) :39 HgA1C , Office (32508) HgA1C , Office 6.4 % (Normal) Range: 4.6 - 7.1 :31 Microscopic Examination Comments: PATIENT WAS FASTINGPERFORMED BY: [employer] Anoqfg0217 [facility] [id number] Bacteria Few (Normal) Mucus Threads Present (Normal) Epithelial Cells (non renal) 0-10 {/hpf} (Normal) Range: 0 - 10 RBC 0-3 {/hpf} (Normal) Range: 0 - 3 WBC 0-5 {/hpf} (Normal) Range: 0 - 5 :31 MICROALBUMIN: CREATININE RATIO Comments: PATIENT WAS FASTINGPERFORMED BY: [employer] Qnzejs7876 [facility] [id number] (76241) AND (62033) Microalb/Creat Ratio 12.6 {mg/g_creat} (Normal) Range: 0.0-30.0 Microalbumin, Urine 9.2 ug/mL (Normal) Range: 0.0-17.0 Creatinine, Urine 73.3 mg/dL (Normal) Range: 15.0-278.0 CBC WITH MANUAL DIFF Comments: PATIENT WAS FASTINGPERFORMED BY: TapCrowd Fjoife5884 [facility] [id number] Information: [id number] (19644) Immature Grans (Abs) 0.0 {x10E3/uL} (Normal) Range: [...] PANEL, COMPREHENSIVE Comments: PATIENT WAS FASTINGPERFORMED BY: LabCoKessler Institute for RehabilitationYflsuv7776 [facility] [id number] (66914) ALT (SGPT) 14 [iU]/L (Normal) Range: 0-32 [...] (Abnormal) Range: 65-99 :31 URINALYSIS, W/ MICRO (96809) Comments: PATIENT WAS FASTINGPERFORMED BY: [facility] [id number] Microscopic Examination See below: (Normal) Microscopic Examination MICRON (Normal) Comments: Microscopic follows if indicated. Nitrite, Urine Negative (Normal) Urobilinogen,Semi-Qn 0.2 mg/dL (Normal) Range: 0.0-1.9 Bilirubin Negative (Normal) Occult Blood Negative (Normal) Ketones Negative (Normal) Glucose Negative (Normal) Protein Negative (Normal) Appearance Clear (Normal) Urine-Color Yellow (Normal) WBC Esterase Negative (Normal) pH 8.5 (Abnormal) Range: 5.0-7.5 Specific [place] 1.018 (Normal) Range: 1.005-1.030 :31 LIPID PANEL (66137) Comments: PATIENT WAS FASTINGPERFORMED BY: [employer] [facility] [id number] LDL Cholesterol Calc 75 mg/dL (Normal) Range: [...] B-12 (CYANOCOBALAMIN) Comments: PATIENT WAS FASTINGPERFORMED BY: [employer] [facility] [id number] (28990) Vitamin B12 299 pg/mL (Normal) Range: 211-946 :31 Vitamin D Hydroxy (53687) Comments: PATIENT WAS FASTINGPERFORMED BY: LabCo Aerkns6514 [facility] [id number] Vitamin D, 25-Hydroxy 31.2 ng/mL (Normal) Range: 30.0-100.0 Comments: Vitamin D deficiency has been defined by the [place] ofUniversity Hospitals Ely[facility] Medical Centercine and an Endocrine Society practice guideline as alevel of serum 25-OH vitamin D less than 20 ng/mL (1,2).The Endocrine Society went on to further define vitamin Dinsufficiency as a level between 21 and 29 ng/mL (2).1. IOM ([place] of Medicine). 2010. Dietary reference intakes for calcium and D. [place]: The National Academies Press.2. Delma MF, Mckenna ABDALLA, Dane MACKENZIE, et al. Evaluation, treatment, and prevention of vitamin D deficiency: an Endocrine Society clinical practice guideline. JCEM. 2010; 96(7):1911-30. :31 TSH (35776) Comments: PATIENT WAS FASTINGPERFORMED BY: [facility] Eoopcq1458 [facility] [id number] TSH 4.190 {uIU/mL} (Normal) Range: 0.450-4.500 :15 HgA1C , Office (57049) HgA1C , Office 6.4 % (Normal) Range: 4.6 - 7.1 :15 Blood Glucose , Office (00626) Blood Glucose , Office 141 (Normal) :19 [...] M.D.October 02, 2012 at 9:24 :48 PM [id number] Signed RB/RB If you are the referring physician and would like to consult with theradiologist who provided this interpretation, please contact Mame Mario at . If this radiologist is unavailable, you will bedirected to another radiologist to assist. If you are a patient with a question regarding this report, pleasecontactyour referring physician hari benítez. Professional Interpretation Provided By: [employer], Phone , These documents contain legally protected [...] on 10/02/122128 Sign by: Keith Crocker DO 65-Dbx-45363:55 Vitamin D Hydroxy (29494) Comments: PATIENT NOT FASTINGPERFORMED BY: LabCoKessler Institute for RehabilitationTxlnud9339 [facility] [id number] Information: [id number] Vitamin D, 25-Hydroxy 39.5 ng/mL (Normal) Range: 30.0-100.0 Comments: Vitamin D deficiency has been defined by the [place] ofMedicine and an Endocrine Society practice guideline as alevel of serum 25-OH vitamin D less than 20 ng/mL (1,2).The Endocrine Society went on to further define vitamin Dinsufficiency as a level between 21 and 29 ng/mL (2).1. IOM ([place] of Medicine). 2010. Dietary reference intakes for [...] Valenzuela M.D.September 17, 2012 at 9:02:07 AM [id number] Signed GP/GP If you are the referring physician and would like to consult with theradiologist damaso davenport provided this interpretation, please contact Mame Mccoy at [phone]. If this radiologist is unavailable, youwill be directed to another radiologist to assist. If you are a patient wi th a question regarding this report, pleasecontactyour referring physician directly. Professional Interpretation Provided By: [employer], Phone , These documents contain l egally [...] destructionof these documents. Dictated on 09/17/12719 by Diid Valenzuela MDscribed on 09/17/12908 by ITS IMPORTSign by Florian Valenzuela MD on 09/17/12908 Sign by: Florian Valenzuela MD 17-Sep-2012 B12 284 pg/mL Range: 211-946 7:31 (Normal) Comments: Performed at: [address] [id number] Director: Demarco Mccormack PhD, Phone: [phone] 17-Sep-2012 BID 0.10 mg/dL Range: 0.00-0.30 7:31 (Normal) 00-Zhi-49417:31 CBCMD ANC 3.6 3/uL (Normal) Range: 2.0-7.7 [...] IMPAIRED HOMEOSTASIS per A.D.A. criteria. :31 [facility] See Note {CFU/mL} (Normal) [...] Simpson M.D.September 13, 2012 at 2:32:10 PM [id number] Signed DL/DL If you are the referring physician and would like to consult with theradiologist who provided this interpretation, please co ntact Mame Lancaster at [phone]. If this radiologist is unavailable, youwillbe directed to another radiologist to assist. If you are a patient with a question regarding this report, pleasecont actyour referring physician directly. Professional Interpretation Provided By: [employer], Phone , These documents contain legally protected [...] 09/13/12 1437 Sign by: Theo Simpson MD 22-Nwa-99293:36 THYROID Radiology Report See Note (Normal) Comments: [...] Valenzuela M.D.September 13 13 at 2:58:06 PM [id number] Signed GP/GP If you are the referring physician and would like to consult with theradiologist who provided this interpretation, please contact Brown chaidez M.D. at [phone]. If this radiologist is unavailable, youwill be directed to another radiologist to assist. If you are a patient with a question regarding this report, pleasecontactyour refer ring physician directly. Professional Interpretation Provided By: [employer], Phone , These documents contain legally protected [...] on 09/13/12 1503 Sign by: Nicolas ARAGON,Florian 09-Nuy-53809:28 CRE Comments: CALL [id number] WITH RESULTSRESULTS CALLED TO DEBBIE 09/13/12 0801 [facility] DIAZ.REPORT READ BACK BY SAME . GFR 105 mL/min (Normal) GFRAA 127 mL/min (Normal) CREAT 0.6 mg/dL (Normal) Range: 0.6-1.0 :23 URINE HANSA CULTURE-JEWELS COL Comments: PATIENT NOT FASTINGPERFORMED BY: [facility]6370 [facility] [id number] Information: SRC:UR [id number] COUNT (70238) Result 1 NG36 (Normal) Comments: No growth in 36 - 48 hours. Urine Culture,Comprehensive Final report (Normal) :39 Urinalysis, Office (75745) UA - BILIRUBIN Negative (Normal) UA - BLOOD Non Hemolyzed Trace (Normal) UA - GLUCOSE Negative (Normal) UA - KETONES Negative mg/dL (Normal) UA - LEUKOCYTE ESTERASE Negative (Normal) UA - NITRITE Negative (Normal) UA - PH 6.5 (Normal) UA - PROTEIN Negative mg/dL (Normal) UA - SPECIFIC GRAVITY 1.015 (Normal) URINE UROBILINGN JEWELS TIMED Normal mg/dL (Normal) :35 HgA1C , Office (43689) HgA1C , Office 6.3 % (Normal) Range: 4.6 - 7.1 41-Msx-22066:35 Blood Glucose , Office (03564) Blood Glucose , Office 143 (Normal) :54 Comp. Metabolic Panel (14) Comments: PATIENT WAS FASTINGPERFORMED BY: CLARITA TapCrowdKessler Institute for RehabilitationXnpydx4722 [facility] [id number] Information: 07/08@830AM 07/09@830AM ALT (SGPT) 11 [iU]/L [...] Creatinine Clearance Comments: PATIENT WAS FASTINGPERFORMED BY: L[facility]iaHenry [facility] Hospital6370 [facility] [id number] Creatinine Clearance 70 mL/min (Abnormal) Range: 88-128 Comments: The above range is based on 1.73 square meter average body surfacearea. Creatinine, Ur 24hr 777.0 {mg/24_hr} (Abnormal) Range: 800.0-1800.0 Creatinine, Urine 37.9 mg/dL (Normal) Range: 15.0-278.0 :54 Lipid Panel With LDL/HDL Comments: PATIENT WAS FASTINGPERFORMED BY: TapCrowd Qskasy4158 Doyle Annai SystemsNovant Health Charlotte Orthopaedic Hospital [id number] Ratio LDL/HDL Ratio 2.6 {ratio_units} (Normal) Range: [...] Qn, 24-Hr Comments: PATIENT WAS FASTINGPERFORMED BY: TapCrowd Wrervb2163 Doyle Annai SystemsNovant Health Charlotte Orthopa[facility] Hospital [id number] Urine Prot,24hr calculated <30.8 {mg/24_hr} Range: 30.0-150.0 (Normal) Protein,Total,Urine <1.5 mg/dL (Normal) Range: 0.0-15.0 Comments: Verified by repeat analysis TSH 2.550 {uIU/mL} Comments: PATIENT WAS FASTINGPERFORMED BY: TapCrow[employer] Ysfcfg5731 [facility] [id number] :54 (Normal) Range: 0.450-4.500 Vitamin B12 271 pg/mL (Normal) Comments: PATIENT WAS FASTINGPERFORMED BY: TapCrowd Uefllj2757 [facility] BransonNohms TechnologiesCritical access hospital [id number] :54 Range: 211-946 :08 CBC WITH MANUAL DIFF Comments: PATIENT NOT FASTINGPERFORMED BY: [facility]iaUniversity [facility] Zuypbg3462 Doyle Lokata.ruCritical access hospital [id number] Information: [id number] (17424) Immature Grans (Abs) 0.0 {x10E3/uL} (Normal) Range: [...] 3.77-5.28 WBC 4.0 {x10E3/uL} (Normal) Range: 4.0-10.5 5-Cdo-118943:01 FECAL OCCULT- Tubes sent home (01692) FECAL OCCULT HGB ASSAY, QUAL, 1-3 SIMULTANEOU negative (Normal) 02-Wvs-26315:42 BILAT SCRN DIGITAL & CAD Radiology Report [...] Valenzuela M.D.April 30, 2012 at 8:16:04 AM [id number] Signed GP/GP If you are the referring physician and would like to consult with theradiologist who prov ided this interpretation, please contact Mame Mccoy at [phone]. If this radiologist is unavailable, youwill be directed to another radiologist to assist. If you are a patient with a qu estion regarding this report, pleasecontactyour referring physician directly. Professional Interpretation Provided By: [employer], Phone , These documents contain legally protected [...] d ocuments. Dictated on 04/30/12741 by Nicolas ARAGON,Didiscribed on 04/30/12828 by ITS IMPORTSign by Florian Valenzuela MD on 04/30/12829 Sign by: Nicolas ARAGON,Florian :44 HgA1C , Office (47536) HgA1C , Office 6.3 % (Normal) Range: 4.6 - 7.1 :44 Blood Glucose , Office (59354) Blood Glucose , Office 150 (Normal) Comments: has part of a cinnamon bun for breakfast :52 Microscopic Examination Comments: PATIENT WAS FASTINGPERFORMED BY: LabProlifiq SoftwareKessler Institute for RehabilitationDklrbw6948 [facility] [id number] Bacteria None seen (Normal) Mucus Threads Present (Normal) Epithelial Cells (non renal) 0-10 {/hpf} (Normal) Range: 0 - 10 RBC 0-3 {/hpf} (Normal) Range: 0 - 3 WBC 0-5 {/hpf} (Normal) Range: 0 - 5 :52 CBC WITH MANUAL DIFF Comments: PATIENT WAS FASTINGPERFORMED BY: Qubrit LabAPIM Therapeutics6370 [facility] BransonNohms TechnologiesCritical access hospital [id number] Information: [id number] (61046) Immature Grans (Abs) 0.0 {x10E3/uL} (Normal) Range: [...] (Normal) Range: 4.0-10.5 :52 URINALYSIS, W/ MICRO (76525) Comments: PATIENT WAS FASTINGPERFORMED BY: [employer] Networks TradingScreen [facility] [id number] Microscopic Examination See below: (Normal) Nitrite, Urine Negative (Normal) Urobilinogen,Semi-Qn 1.0 mg/dL (Normal) Range: 0.0-1.9 Bilirubin Negative (Normal) Occult Blood Negative (Normal) Ketones Negative (Normal) Glucose Negative (Normal) Protein 2+ (Abnormal) WBC Esterase Negative (Normal) Appearance Clear (Normal) Urine-Color Yellow (Normal) pH 7.0 (Normal) Range: 5.0-7.5 Specific [place] 1.029 (Normal) Range: 1.005-1.030 :52 TSH (64201) Comments: PATIENT WAS FASTINGPERFORMED BY: Bradford NetworksKessler Institute for RehabilitationPedxox2832 [facility] [id number] TSH 2.060 {uIU/mL} (Normal) Range: 0.450-4.500 :52 METABOLIC PANEL, COMPREHENSIVE Comments: PATIENT WAS FASTINGPERFORMED BY: Bradford NetworksKessler Institute for RehabilitationIiaamo2273 [facility] [id number] (74655) ALT (SGPT) 16 [iU]/L (Normal) Range: 0-40 [...] mg/dL (Abnormal) Range: 65-99 :52 LIPID PANEL (75804) Comments: PATIENT WAS FASTINGPERFORMED BY: CableMatrix TechnologiesCritical access hospital [id number] LDL/HDL Ratio 2.2 {ratio_units} (Normal) Range: 0.0-3.2 [...] CREATININE RATIO Comments: PATIENT WAS FASTINGPERFORMED BY: Table870 VoucherlinkCritical access hospital [id number] (42529) AND (30088) Microalb/Creat Ratio 822.1 {mg/g_creat} (Abnormal) Range: 0.0-30.0 Microalbumin, Urine 844.3 ug/mL (Abnormal) Range: 0.0-17.0 Creatinine, Urine 102.7 mg/dL (Normal) Range: 15.0-278.0 39-Jpi-097680:18 HgA1C , Office (85596) HgA1C , Office 6.3 % (Normal) Range: 4.6 - 7.1 27-Ujk-267783:16 CHEST WITH CONTRAST Radiology Report See Note [...] radiologist regarding this report, please call our [id number] line @ Dictated on 12/14/11 1033 by Nicolas ARAGON,[facility] bed on 12/14/11 1438 by ITS IMPORTSign by Florian Valenzuela MD on 12/14/11 1439 Sign by: Florian Valenzuela MD 05-Dec-20119:19 CBC WITH MANUAL DIFF Comments: PATIENT WAS FASTINGPERFORMED BY: LabCo Enoxpz0590 [facility] [id number] Information: [id number] (88202) Immature Grans (Abs) 0.0 {x10E3/uL} (Normal) Range: [...] PANEL, COMPREHENSIVE Comments: PATIENT WAS FASTINGPERFORMED BY: Attainia6370 [facility] [id number] (78795) ALT (SGPT) 14 [iU]/L (Normal) Range: 0-40 [...] mg/dL (Abnormal) Range: 65-99 :19 LIPID PANEL (09584) Comments: PATIENT WAS FASTINGPERFORMED BY: Codility [facility] [id number]; appt 12-21-11 LDL/HDL Ratio 3.0 {ratio_units} Range: [...] {units} (Normal) Comments: PATIENT NOT FASTINGPERFORMED BY: AquaMobile Nmabnv8005 [facility] [id number] BY: TapCrowd[address] [id number] 10:24 Range: 0-19 Comments: Negative <20 Weak positive 20 - 39 Moderate positive 40 - 59 Strong positive >59 0-Hev-973082:24 EBV Panel (08219) Comments: PATIENT NOT FASTINGPERFORMED BY: Risk I/Olin6370 [facility] [id number] BY: TapCrowd[address] [id number] Interpretation: SPRCS (Normal) Comments: EBV Interpretation Chart [...] <0.9 Equivocal 0.9 - 1.0 Positive >1.0 1-Kuo-211023:24 SED RATE ERYTHROCYTE Comments: PATIENT NOT FASTINGPERFORMED BY: [place] 1015670 [facility] [id number] BY: [address] [id number] (43342) Sedimentation Rate-Westergren 6 mm/h (Normal) Range: 0-40 4-Kyz-079838:24 C-REACTIVE PROTEIN (74742) Comments: PATIENT NOT FASTINGPERFORMED BY: [place] 1015670 [facility] [id number] BY: [address] [id number] C-Reactive Protein, Quant 2.1 mg/L (Normal) Range: 0.0-4.9 9-Eko-569625:24 TSH (60912) Comments: PATIENT NOT FASTINGPERFORMED BY: [place] 1015670 [facility] [id number] BY: [address] [id number] TSH 1.610 {uIU/mL} (Normal) Range: 0.450-4.500 0-Wwr-154430:24 RHEUMATOID FACTOR-QUANT Comments: PATIENT NOT FASTINGPERFORMED BY: [place] 1015670 [facility] [id number] BY: [address] [id number] (87690) RA Latex Turbid. 8.4 {IU/mL} (Normal) Range: 0.0-13.9 8-Zsw-447262:24 [place] (ANTINUCLEAR ANTIBODY) Comments: PATIENT NOT FASTINGPERFORMED BY: [place] 1015670 [facility] [id number] BY: LabCoJill Ville 787887 [facility] [id number] (32622) [place] Direct Negative (Normal) 0-Xbt-324208:24 CBC WITH MANUAL DIFF Comments: PATIENT NOT FASTINGPERFORMED BY: [facility] Wluuvh2233 [facility] [id number] BY: LabCo[address] [id number] Inf ormation: [id number] (28480) Immature Grans (Abs) 0.0 {x10E3/uL} (Normal) Range: [...] 3.80-5.10 WBC 4.6 {x10E3/uL} (Normal) Range: 4.0-10.5 9-Mtb-196114:24 METABOLIC PANEL, Comments: PATIENT NOT FASTINGPERFORMED BY: CB [facility] Xkoolb8735 Vivek NunnCritical Access Hospitalhadley [place] [id number] BY: BN [facility] Aaphpzluzd6458 [facility] [id number]; appt 12-21-11 COMPREHENSIVE (47238) ALT (SGPT) 13 [iU]/L (Normal) Range: 0-40 [...] Glucose, Serum 118 mg/dL (Abnormal) Range: 65-99 4-Izb-078705:51 HANSA CULTURE-OTHER (76620) Comments: PATIENT NOT FASTINGPERFORMED BY: CLARITA LabCoKessler Institute for RehabilitationQzzatt8024 [facility] [id number] Information: SRC:AIDAN [id number] Result 1 RRF (Normal) Comments: Routine respiratory vicente Upper Respiratory Culture Final report (Normal) 07-Nov-20119:19 Rapid Strep Test, Office (98967) Rapid Strep Test, Office Negative (Normal) 33-Sqg-897217:16 HgA1C , Office (06862) HgA1C , Office 6.1 % (Normal) Range: 4.6 - 7.1 69-Nqi-910530:16 Blood Glucose , Office (99489) Blood Glucose , Office 141 (Normal) 34-Zbm-948277:10 ABDOMEN/PELVIS WITH CONTRAST Radiology Report See Note [...] 1410 Si gn by: Florian Valenzuela MD 05-Kwy-033231:39 CHEST WITH CONTRAST Radiology Report See Note [...] noted, distal end at the level of Y1qsvqd. Normal osseous structures. There is limited visualization of the liver, spleen w ithout ademonstratedabnormality. IMPRESSION:No pulmonary embolism. No aortic dissection. Nonspecific two to 3-mmsubtle nodular density at right upper lobe, image 145 probably representatypically atelec tatic change. Dictated on 04/21/11 1104 by Leonard Odell MDranscribed on 04/22/11 1013 by ITS IMPORTSign by Jordan Odell MD on 04/22/11 1014 Sign by: Jordan Odell MD 78-Hpa-684011:29 MICROALBUMIN: CREATININE RATIO Comments: PATIENT WAS FASTINGPERFORMED BY: [facility]6370 [facility] [id number] (18067) AND (93987) Microalb/Creat Ratio 11.8 {mg/g_creat} (Normal) Range: 0.0-30.0 Microalbumin, Urine 7.3 ug/mL (Normal) Range: 0.0-17.0 Creatinine, Urine 61.9 mg/dL (Normal) Range: 15.0-278.0 :29 LIPID PANEL (93202) Comments: PATIENT WAS FASTINGPERFORMED BY: ezeep6370 [facility] [id number]; appt 07/25/11 VLDL Cholesterol Peg VLDLCH mg/dL [...] MANUAL DIFF Comments: PATIENT WAS FASTINGPERFORMED BY: TapCrowdPinon Health CenterWcbmgi9936 [facility] [id number] Information: [id number] (97582) Immature Grans (Abs) 0.0 {x10E3/uL} (Normal) Range: [...] 3.80-5.10 WBC 5.7 {x10E3/uL} (Normal) Range: 4.0-10.5 83-Vjp-170430:29 METABOLIC PANEL, COMPREHENSIVE Comments: PATIENT WAS FASTINGPERFORMED BY: LabCoKessler Institute for RehabilitationLkofnv9748 [facility] [id number] (22862) ALT (SGPT) 12 [iU]/L (Normal) Range: 0-40 [...] Glucose, Serum 120 mg/dL (Abnormal) Range: 65-99 85-Qot-81861:46 THYROID Radiology Report See Note (Normal) Comments: [...] on 03/28/11 1149 Sign by: Jose R ARAGON,[facility] :10 CHEST, PA AND LATERAL Radiology [...] 1019 Sign by: ___ Florian Valenzuela MD 34-Yro-91451:47 SOFT TISSUE NECK WITH CONTRAST Radiology Report [...] bilateral parotid glands. Normal bilateral director of transportation spaces.Normal bilateral parapharyngeal spaces. Normal bilateral carotid [...] 01/24/11 1017 Sign by: Florian Valenzuela MD 39-Csg-71519:15 CBC WITH MANUAL DIFF Comments: PATIENT WAS FASTINGPERFORMED BY: LabHenry [facility]6370 [facility] [id number] Information: [id number] (68747) Immature Grans (Abs) 0.0 {x10E3/uL} (Normal) Range: [...] 3.80-5.10 WBC 7.0 {x10E3/uL} (Normal) Range: 4.0-10.5 16-Kqy-03265:15 METABOLIC PANEL, COMPREHENSIVE Comments: PATIENT WAS FASTINGPERFORMED BY: LabCoKessler Institute for RehabilitationNhhlfe2745 [facility] [id number] (55329) ALT (SGPT) 10 [iU]/L (Normal) Range: 0-40 [...] mg/dL (Abnormal) Range: 65-99 :15 LIPID PANEL (01409) Comments: PATIENT WAS FASTINGPERFORMED BY: Risk I/Olin6370 [facility] [id number]; has f/u 04/20/11 LDL/HDL Ratio 2.5 {ratio_units} (Normal) Range: 0.0-3.2 LDL Cholesterol Calc 94 mg/dL (Normal) Range: 0-99 VLDL Cholesterol Peg 46 mg/dL (Abnormal) Range: 5-40 HDL Cholesterol 37 mg/dL (Abnormal) Comments: According to ATP-III Guidelines, HDL-C >59 mg/dL is considered anegative risk factor for CHD. Triglycerides 230 mg/dL (Abnormal) Range: 0-149 Cholesterol, Total 177 mg/dL (Normal) Range: 100-199 :15 HgA1C , Office (45022) Comments: PATIENT WAS FASTINGPERFORMED BY: LabHoney Uwlait9059 [facility] [id number] Glycohemoglobin (GHb), Total 7.7 % (Normal) Comments: Diabetic Adult <9.0 Healthy Adult 3.9 - 7.3 (DCCT/NGSP) Current ADA guide lines recommend a treatment goal of <7.0% HgbA1c for diabetic patients, which corresponds to a <9.0% Glycohemoglobin result with this method. :50 Blood Glucose , Office (27984) Blood Glucose , Office 160 (Normal) :48 [...] = 500 mg/dL :33 HgA1C , Office (80506) HgA1C , Office 6.5 % (Normal) Range: 4.6 - 7.1 :33 Blood Glucose , Office (13901) Blood Glucose , Office 154 (Normal) 88-Rar-009085:11 Influenza A, H1N1, RT PCR Comments: PERFORMED BY: TapCrowd[address] [id number] BY: TapCrowd[address] [id number] Information: SRC:NL Subtype Novel H1N1 by Negative (Normal) PCR Type Influenza A by Negative (Normal) PCR Viral FLUABN (Normal) Comments: PERFORMED BY: TapCrowd[address] [id number] BY: TapCrowd[address] [id number] :11 Culture,Rapid,Influenz Comments: Negative:No Influenza A or B detected. a :04 Urinalysis, Office (03822) UA - BILIRUBIN Negative (Normal) UA - BLOOD Negative (Normal) UA - GLUCOSE Negative (Normal) UA - KETONES Negative mg/dL (Normal) UA - LEUKOCYTE ESTERASE Negative (Normal) UA - NITRITE Negative (Normal) UA - PH 6.0 (Normal) UA - PROTEIN Negative mg/dL (Normal) UA - SPECIFIC GRAVITY 1.025 (Normal) URINE UROBILINGN JEWELS TIMED Normal mg/dL (Normal) :59 Vitamin D Hydroxy (95889) Comments: PATIENT WAS FASTINGPERFORMED BY: TapCrowd[address] [id number] Vitamin D, 25-Hydroxy 32.0 ng/mL (Normal) Range: 32.0-100.0 Comments: Recent studies consider the lower limit of 32.0 ng/mL to be athreshold for optimal health.Jose MAYA. J Nutr. 2004;135(2):317-22. 4:59 METABOLIC PANEL, Comments: PATIENT WAS FASTINGPERFORMED BY: LabCoKessler Institute for RehabilitationKcirjz1824 [facility] [id number] Information: [id number] COMPREHENSIVE (47087) ALT (SGPT) 9 [iU]/L (Normal) Range: 0-40 [...] mg/dL (Abnormal) Range: 65-99 :59 LIPID PANEL (62539) Comments: PATIENT WAS FASTINGPERFORMED BY: ezeep6370 [facility] [id number] LDL Cholesterol Calc 87 mg/dL (Normal) Range: [...] MANUAL DIFF Comments: PATIENT WAS FASTINGPERFORMED BY: ChangeYourFlightlin6370 [facility] [id number] Information: ADD [id number] AND DRAW FEE [id number] [id number] (66785) Immature Grans (Abs) 0.0 {x10E3/uL} (Normal) Range: [...] CREATININE RATIO Comments: PATIENT WAS FASTINGPERFORMED BY: Bradford NetworksKessler Institute for RehabilitationPaekkt5791 [facility] [id number] (00031) AND (90186) Creatinine, Urine 87.5 mg/dL (Normal) Range: 15.0-278.0 Microalb/Creat Ratio 4.5 {mg/g_creat} (Normal) Range: 0.0-30.0 Microalbumin, Urine 3.9 ug/mL (Normal) Range: 0.0-17.0 :57 METABOLIC PANEL, COMPREHENSIVE Comments: PATIENT WAS FASTINGPERFORMED BY: TapCrowdKessler Institute for RehabilitationDugfor6870 [facility] [id number] (04192) ALT (SGPT) 12 [iU]/L (Normal) Range: 0-40 [...] mg/dL (Abnormal) Range: 65-99 :57 LIPID PANEL (16187) Comments: PATIENT WAS FASTINGPERFORMED BY: AquaMobile Pryrsf1549 [facility] [id number] LDL Cholesterol Calc 138 mg/dL (Abnormal) Range: 0-99 LDL/HDL Ratio 2.9 {ratio_units} (Normal) Range: 0.0-3.2 HDL Cholesterol 47 mg/dL (Normal) Comments: According to ATP-III Guidelines, HDL-C >59 mg/dL is considered anegative risk factor for CHD. VLDL Cholesterol Peg 29 mg/dL (Normal) Range: 5-40 Cholesterol, Total 214 mg/dL (Abnormal) Range: 100-199 Triglycerides 147 mg/dL (Normal) Range: 0-149 :05 HgA1C , Office (71490) HgA1C , Office 6.5 % (Normal) Range: 4.6 - 7.1 :05 Blood Glucose , Office (97549) Blood Glucose , Office 140 (Normal) :35 MICROALBUMIN: CREATININE RATIO Comments: PATIENT WAS FASTINGPERFORMED BY: Risk I/Olin6370 [facility] [id number] (49177) AND (54160) Creatinine, Urine 94.9 mg/dL (Normal) Range: 15.0-278.0 Microalb/Creat Ratio 10.7 {mg/g_creat} (Normal) Range: 0.0-30.0 Microalbumin, Urine 10.2 ug/mL (Normal) Range: 0.0-17.0 :35 CBC WITH MANUAL DIFF Comments: PATIENT WAS FASTINGPERFORMED BY: TapCrowdKessler Institute for RehabilitationDwgnmo6079 [facility] [id number] Information: [id number] (47548) Baso (Absolute) 0.0 {x10E3/uL} (Normal) Range: 0.0-0.2 [...] PANEL, COMPREHENSIVE Comments: PATIENT WAS FASTINGPERFORMED BY: LabCoKessler Institute for RehabilitationBmhnim6995 [facility] [id number] (38668) ALT (SGPT) 12 [iU]/L (Normal) Range: 0-40 [...] mg/dL (Abnormal) Range: 65-99 :35 LIPID PANEL (06973) Comments: PATIENT WAS FASTINGPERFORMED BY: [facility] Lkvvqq8078 Vivek Hernandezhad[place] [id number] LDL Cholesterol Calc 103 mg/dL (Abnormal) Range: 0-99 LDL/HDL Ratio 3.0 {ratio_units} (Normal) Range: 0.0-3.2 HDL Cholesterol 34 mg/dL (Abnormal) Comments: According to ATP-III Guidelines, HDL-C >59 mg/dL is considered anegative risk factor for CHD. VLDL Cholesterol Peg 38 mg/dL (Normal) Range: 5-40 Cholesterol, Total 175 mg/dL (Normal) Range: 100-199 Triglycerides 190 mg/dL (Abnormal) Range: 0-149 :31 HgA1C , Office (16131) HgA1C , Office 6.2 % (Normal) Range: 4.6 - 7.1 :31 Blood Glucose , Office (10043) Blood Glucose , Office 113 (Normal) :03 BILAT SCRN DIGITAL & CAD Radiology Report See Note (Normal) Comments: Exam Number: [id number] MAMMOGRAPHY - BILATERAL SCREENING INDICATION:Routine annual screening [...] of attaching a ResultCode to this exam.ADDENDUM: [id number] HPBI/MDS Reported By: BRIAN JIMENEZ M.D. :02 DEXA BONE DENSITY STUDY (HP) Radiology Report See Note (Normal) Comments: Exam Number: [id number] CLINICAL:Assess bone density EXAMINATION:DUAL ENERGY X-RAY ABSORPTIOMETRY / DEXA. TECHNIQUE:Bone Density Measurements (BMD) of left hip and left forearm wereobtained using a [employer] dual energy scanner. COMPARISON:A report from 2001 [...] NIH Osteoporosis and Related Bone Diseases http://www.osteo.org2. Manager Functional ational Society for Clinical Densitometryhttp://www.iscd.org3. National Osteoporosis Foundation http://www.nof.org Reported By: NELLY LINCOLN M.D. 03-Obw-62001:11 HgA1C , Office (79789) HgA1C , Office 6.2 % (Normal) Range: 4.6 - 7.1 :11 Blood Glucose , Office (78626) Blood Glucose , Office 186 (Normal) :25 TSH (58834) Comments: PATIENT WAS FASTINGPERFORMED BY: LabCo Dinfox2318 [facility] [id number] TSH 2.340 {uIU/mL} (Normal) Range: 0.450-4.500 :25 METABOLIC PANEL, COMPREHENSIVE Comments: PATIENT WAS FASTINGPERFORMED BY: LabCo Axfoix4179 [facility] [id number] (18194) ALT (SGPT) 10 [iU]/L (Normal) Range: 0-40 [...] MANUAL DIFF Comments: PATIENT WAS FASTINGPERFORMED BY: LabHenry [facility] Hospital6370 [facility] [id number] Information: ADD DRAW FEE [id number] AND J0 3534 (92896) Baso (Absolute) 0.0 {x10E3/uL} (Normal) Range: 0.0-0.2 [...] {x10E3/uL} (Normal) Range: 4.0-10.5 :25 LIPID PANEL (77919) Comments: PATIENT WAS FASTINGPERFORMED BY: [facility]6370 [facility] [id number] LDL/HDL Ratio 2.6 {ratio_units} (Normal) Range: 0.0-3.2 Cholesterol, Total 183 mg/dL (Normal) Range: 100-199 HDL Cholesterol 34 mg/dL (Abnormal) Comments: According to ATP-III Guidelines, HDL-C >59 mg/dL is considered anegative risk factor for CHD. LDL Cholesterol Calc 90 mg/dL (Normal) Range: 0-99 Triglycerides 295 mg/dL (Abnormal) Range: 0-149 VLDL Cholesterol Peg 59 mg/dL (Abnormal) Range: 5-40 :02 HgA1C , Office (15252) HgA1C , Office 6.2 % (Normal) Range: 4.6 - 7.1 :02 Blood Glucose , Office (93269) Blood Glucose , Office 152 (Normal) :02 HEPATIC FUNCTION PANEL Comments: PATIENT WAS FASTINGPERFORMED BY: [facility]6370 [facility] [id number] (12588) Alkaline Phosphatase, S 63 [iU]/L (Normal) Range: 25-165 ALT (SGPT) 13 [iU]/L (Normal) Range: 0-40 AST (SGOT) 14 [iU]/L (Normal) Range: 0-40 Bilirubin, Direct 0.10 mg/dL (Normal) Range: 0.00-0.40 Bilirubin, Total 0.4 mg/dL (Normal) Range: 0.1-1.2 Albumin, Serum 4.6 g/dL (Normal) Range: 3.6-4.8 Protein, Total, Serum 7.0 g/dL (Normal) Range: 6.0-8.5 :02 LIPID PANEL (76704) Comments: PATIENT WAS FASTINGPERFORMED BY: [facility]6370 [facility] [id number] LDL Cholesterol Calc 114 mg/dL (Abnormal) Range: 0-99 LDL/HDL Ratio 3.6 {ratio_units} (Abnormal) Range: 0.0-3.2 HDL Cholesterol 32 mg/dL (Abnormal) Comments: According to ATP-III Guidelines, HDL-C >59 mg/dL is considered anegative risk factor for CHD. Triglycerides 319 mg/dL (Abnormal) Range: 0-149 VLDL Cholesterol Peg 64 mg/dL (Abnormal) Range: 5-40 Cholesterol, Total 210 mg/dL (Abnormal) Range: 100-199 :45 HgA1C , Office (94015) HgA1C , Office 6.2 % (Normal) Range: 4.6 - 7.1 :45 Blood Glucose , Office (04484) Blood Glucose , Office 193 (Normal) :34 MICROALBUMIN: CREATININE RATIO Comments: PATIENT WAS FASTINGPERFORMED BY: Table870 [facility] [id number] (16057) AND (21167) Creatinine, Urine 126.3 mg/dL (Normal) Range: 15.0-278.0 Microalb/Creat Ratio 7.6 {mg/g_creat} (Normal) Range: 0.0-30.0 Microalbumin, Urine 9.6 ug/mL (Normal) Range: 0.0-17.0 :34 METABOLIC PANEL, COMPREHENSIVE Comments: PATIENT WAS FASTINGClinical Information: ADD [id number] CC:3302PERFORMED BY: ezeep6370 [facility] [id number] (58206) A/G Ratio 1.7 (Normal) Range: 1.1-2.5 Albumin, [...] FUNCTION PANEL Comments: PATIENT WAS FASTINGPERFORMED BY: Qubrit LabHoney Drvusw5574 [facility] [id number] (09694) Bilirubin, Direct 0.08 mg/dL (Normal) Range: 0.00-0.40 :34 LIPID PANEL (27448) Comments: PATIENT WAS FASTINGPERFORMED BY: Qubrit LabCoKessler Institute for RehabilitationTpzwke1605 [facility] [id number] Cholesterol, Total 186 mg/dL (Normal) Range: 100-199 HDL Cholesterol 38 mg/dL (Abnormal) Comments: According to ATP-III Guidelines, HDL-C >59 mg/dL is considered anegative risk factor for CHD. LDL Cholesterol Calc 102 mg/dL (Abnormal) Range: 0-99 LDL/HDL Ratio 2.7 {ratio_units} (Normal) Range: 0.0-3.2 Triglycerides 232 mg/dL (Abnormal) Range: 0-149 VLDL Cholesterol Peg 46 mg/dL (Abnormal) Range: 5-40 03-Pfp-586151:36 HgA1C , Office (11218) HgA1C , Office 6.3 % (Normal) Range: 4.6 - 7.1 15-Wwp-745011:36 Blood Glucose , Office (13419) Blood Glucose , Office 129 (Normal) 3-Mfx-476582:12 BILAT SCRN DIGITAL & CAD Radiology Report See Note (Normal) Comments: Exam Number: [id number] MAMMOGRAM, BILATERAL SCREENING DIGITAL AND CAD HISTORY: [...] 1992 (MQSA). The mammograms werealso examined w Flimper computer-aided detection software (ImageiHookup Social, varinode, StarGen.). Reported By: BRIAN JIMENEZ M.D. 30-Ytx-869444:57 HgA1C , Office (73264) HgA1C , Office 6.3 % (Normal) Range: 4.6 - 7.1 90-Pma-067006:57 Blood Glucose , Office (41262) Blood Glucose , Office 111 (Normal) :40 [...] for patient's is the eGFRmultiplied by 1.212. [facility] Laboratory uses the abbreviated Modification of Diet [...] Disease W/O Kidney Disease>/= 90 Stage One [place]03 - 89 Stage Two Suspect Decreased GFR30 [...] (Normal) Range: 5-40 :30 HgA1C , Office (24192) HgA1C , Office 6.2 % (Normal) Range: 4.6 - 7.1 :30 Blood Glucose , Office (15376) Blood Glucose , Office 167 (Normal) :33 [...] (Normal) Range: 211-911 :51 HgA1C , Office (39672) HgA1C , Office 5.9 % (Normal) Range: 4.6 - 7.1 80-Pne-982689:51 Blood Glucose , Office (27024) Blood Glucose , Office 113 (Normal) :49 [...] >240 mg/dL High Risk :01 Urinalysis, Office (61888) UA - BILIRUBIN Negative (Normal) UA - [...] Comments: GLU,2HPPG 75gm GLUC PPG GLUP from 0603:L06059F. 28-Tta-008222:44 CHEST, PA AND LATERAL Radiology Report See Note (Normal) Comments: Exam Number: [id number] PA AND LATERAL CHEST HISTORY Being done for chest pain. FINDINGSCardiac configuration is upper limits of normal to mildly enlarged.There is mild elevation, left hemid iaphragm. No acute infiltrate,effusion, or pneumothorax is identified. There is moderate spurformation noted in the lower dorsal spine. IMPRESSION1. A number of chronic changes.2. No acute infiltrate. Reported By: CADE MERCER M.D. 25-Gzt-050749:20 URINE HANSA CULTURE-IDENTIFICATN Comments: PATIENT NOT FASTINGClinical Information: ADD [id number] PERFORMED BY: LabCoKessler Institute for RehabilitationXhpyri7242 [facility] [id number] (61112) Jennifer HERNANDEZ (Normal) Comments: S = Susceptible; I = [...] mL (Normal) Urine Final report Culture,Comprehensive (Normal) 32-Ebs-39410:00 CBC With Differential/Platelet Comments: PATIENT NOT FASTINGPERFORMED BY: [facility] Wssyou9549 [facility] [id number] Baso (Absolute) 0.1 {x10E3/uL} (Normal) Range: 0.0-0.2 [...] 11.7-15.0 WBC 6.0 {x10E3/uL} (Normal) Range: 4.0-10.5 85-Bwy-12727:00 Comp. Metabolic Panel (14) Comments: PATIENT NOT FASTINGPERFORMED BY: [facility] Cdcozh8099 [facility] [id number] A/G Ratio 1.7 (Normal) Range: 1.1-2.5 Albumin, [...] Serum 116 mg/dL (Abnormal) Range: 65-99 If -Qatari >60 mL/min (Normal) Range: 60-128 Comments: Note: [...] (Normal) Range: 0.34-4.82 :33 HgA1C , Office (74988) HgA1C , Office 5.2 % (Normal) Range: 4.6 - 7.1 :33 Blood Glucose , Office (89156) Blood Glucose , Office 172 (Normal) :08 FEMUR,2 VIEWS Radiology Report See Note (Normal) Comments: Exam Number: [id number] AP AND LATERAL LEFT TIBIA/FIBULA. HISTORYBeing done [...] Report See Note (Normal) Comments: Exam Number: [id number] AP AND LATERAL LEFT TIBIA/FIBULA. HISTORYBeing done [...] (Normal) Range: 0.34-4.82 :53 HgA1C , Office (03982) Comments: done-[facility] HgA1C , Office 5.3 % (Normal) Range: 4.6 - 7.1 :53 Blood Glucose , Office (90718) Comments: done-[facility] Blood Glucose , Office 94 (Normal) [...] Range: 6.4-8.2 :18 Blood Glucose , Office (18655) Blood Glucose , Office 5.6 (Normal) :18 HgA1C , Office (31198) HgA1C , Office 142 % (Abnormal) Range: [...] :00 AMIE 25 U/L (Normal) Comments: COMMENTS: [facility] [address] DR Webster*: NOT APPLICABLE Range: 25-115 :00 CBCD Comments: COMMENTS: [facility] [address] DR Webster*: NOT [...] 11.6-14.6 WBC 5.3 K/mm3 (Normal) Range: 4.4-11.0 39-Puh-806252:00 COMP METABOLIC Comments: COMMENTS: BED 7 DR [...] T PROT 8.0 g/dL (Normal) Range: 6.4-8.2 [id number]-[id number]:00 D BILI 0.14 mg/dL (Normal) Comments: COMMENTS: BED 7 FASTPrecautions*: NOT APPLICABLE Range: 0.00-0.30 :00 LIPASE 141 U/L (Normal) Comments: COMMENTS: BED 7 DR HORNPrecajori*: NOT APPLICABLE Range: 114-286 :46 LIVER ALB [...] mg/dL VLDL 50 mg/dL (Abnormal) Range: 5-40 [id number] URINALYSIS (22546) URINALYSIS Comments: uNABLE TO PUT RESULTS IN CORRECTLY- MNGJOOM-JELWAZDTVHJB-VODZVFMZDGF-NEGS.G.-1.185TLBGL-ICGDPOVNQI-6.0VJNGHZM-OASDTXCQIID-4.6CRABQQQA-GKQSHGALVWATVHPHYH-KXYWU (Normal) :09 HgA1C , Office (60138) HgA1C , Office 5.4 % (Normal) Range: 4.6 - 7.1 :09 Blood Glucose , Office (30870) Blood Glucose , Office 161 (Normal) Plan [...] II, controlled, with no complications CAD in [place] artery : Reviewed 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 Indication: CAD in [place] artery Mixed hyperlipidemia : Cholesterol mgmt Indication: [...] B12 shots montly Indication: Macrocytosis CAD in [place] artery : Reviewed 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 Indication: CAD in [place] artery CAD in [place] artery : Continue Current Prescription(s) Indication: CAD in [place] artery Diabetes mellitus type 2, uncontrolled, without [...] Pulmonary hypertension, moderate to severe : Reviewed 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 Indication: Pulmonary hypertension, moderate to severe [...] S/P laminectomy with spinal fusion : Reviewed 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 Indication: S/P laminectomy with spinal fusion Macrocytosis without anemia : Reviewed Lab Indication: Macrocytosis without anemia Diabetes mellitus type II, controlled, with no complications : Reviewed Diagnostic Tests Indication: Diabetes mellitus type II, controlled, with no complications S/P laminectomy with spinal fusion : Reviewed 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 Indication: S/P laminectomy with spinal fusion [...] pneumonia) CAP (community acquired pneumonia) : Reviewed 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 Indication: CAP (community acquired pneumonia) Sinusitis, bacterial : Eprescribed prescriptions (G8553) Indication: Sinusitis, bacterial Pulmonary hypertension, moderate to severe : Reviewed Diagnostic Tests Indication: Pulmonary hypertension, moderate to severe Nonsmoker : Eprescribed prescriptions (G8553) Indication: Nonsmoker Bronchitis : Reviewed Diagnostic Tests Indication: Bronchitis Bronchitis : Reviewed 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 Indication: Bronchitis Bronchitis : *Antibiotic Usage [...] UP IN 3 DAYS with [facility] Indication: EDEMA, NOS Benign paroxysmal positional vertigo : Reviewed 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 Indication: Benign paroxysmal positional vertigo Acute [...] MONTHS Indication: Mixed hyperlipidemia Planned Observations TSH ([id number])Indication: Diabetes mellitus type 2, uncontrolled, without complications On: 42 Request URINALYSIS, W/ MICRO ([id number])Indication: Diabetes mellitus type 2, uncontrolled, without complications On: :42 Request MICROALBUMIN: CREATININE RATIO (52928) AND ([id number])Indication: Diabetes mellitus type 2, uncontrolled, without complications On: 42 Request METABOLIC PANEL, COMPREHENSIVE (79263)Indication: Hypertensive heart disease without heart failure On: 5-Ycr-967508:42 Request LIPID PANEL (98683)Indication: Mixed hyperlipidemia On: :42 Request CBC W/AUTO DIFF WBC (65656)Indication: Hypertensive heart disease without heart failure On: 1-Kgt-897821:42 Request LIPID PANEL (64704)Indication: Diabetes mellitus type 2, uncontrolled, without complications On: 9-Rtb-970226:25 Request CBC WITH MANUAL DIFF ([id number])Indication: Elevated platelet count On: :11 Request LIPASE (73471)Indication: Flu-like symptoms On: 1-Ipr-972586:53 Request Comments: stat POTASSIUM SERUM (81408)Indication: Hypokalemia On: :40 Request MAGNESIUM (29489)Indication: Hypomagnesemia On: 52-Vvw-088098:40 Request Renal function Panel (64779)Indication: Hypokalemia On: 62-Hei-827719:48 Request POTASSIUM SERUM (96893)Indication: Hypokalemia (Renamed from Decreased potassium in the blood) On: 03-Nov-20169:06 Request POTASSIUM SERUM (81237)Indication: Hypokalemia (Renamed from Decreased potassium in the blood) On: 04-Cdl-707034:55 Request POTASSIUM SERUM ([id number])Indication: Hypokalemia On: 7-Qtz-987138:22 Request MAGNESIUM (46857)Indication: Hypokalemia On: 1-Cwi-461080:21 Request URINE HANSA CULTURE-JEWELS COL COUNT (45486)Indication: UTI (urinary tract infection), bacterial On: :54 Request MAGNESIUM (24047)Indication: Abdominal pain On: 16-Mkk-030221:45 Request Comments: do in 3 weeks CALCIFEDIOL (05429)Indication: Vitamin D deficiency On: 57-Jct-048176:14 Request LIPID PANEL (20250)Indication: Mixed hyperlipidemia On: 34-Vjo-156664:13 Request VITAMIN B12 AND FOLATES (69466)Indication: B12 deficiency anemia On: 94-Hsl-552725:13 Request TSH (THYROID STIMULATING HORMONE) ([id number])Indication: Thyroid Nodule On: 29-Jbv-431175:13 Request METABOLIC PANEL, COMPREHENSIVE (01305)Indication: Mixed hyperlipidemia On: :13 Request CBC WITH MANUAL DIFF ([id number])Indication: Hypertensive heart disease without heart failure On: 11-Uxd-592770:13 Request MICROALBUMIN: CREATININE RATIO (91406) AND (67340)Indication: Hypertensive heart disease without heart failure On: 89-Wdq-823626:13 Request MYOGLOBIN (08079)Indication: Sweating abnormality On: 14-Gie-288133:11 Request CPK MB FRACTION (94906)Indication: Sweating abnormality On: 06-Vke-661914:11 Request ASSAY, TROPONIN, QUANTITATIVE (aka Troponin I) ([id number])Indication: Sweating abnormality On: 09-Ywj-710919:11 Request METABOLIC PANEL, BASIC (80075)Indication: Hypokalemia (Renamed from Decreased potassium in the blood) On: 89-Akz-911511:16 Request PARATHORMONE (41483)Indication: Hypocalcemia On: 42-Dws-140613:23 Request Magnesium (50129)Indication: Hypokalemia (Renamed from Decreased potassium in the blood) On: 97-Gdh-459297:22 Request CALCIUM, IONIZED (45912)Indication: Hypocalcemia On: 04-Alw-240483:21 Request VITAMIN B12 AND FOLATES (37687)Indication: Macrocytosis without anemia On: 46-Olm-716753:39 Request SMEAR+INTERP FLUOR STAIN (43210)Indication: Macrocytosis without anemia On: 71-Nbb-257641:37 Request MICROALBUMIN: CREATININE RATIO (69436) AND (37414)Indication: Hypertensive heart disease without heart failure On: 89-Qra-445523:16 Request CBC W/AUTO DIFF WBC (43566)Indication: Hypertensive heart disease without heart failure On: 43-Vlz-571628:16 Request METABOLIC PANEL, COMPREHENSIVE (18009)Indication: Hypertensive heart disease without heart failure On: 20-Xgg-781975:16 Request LIPID PANEL (39658)Indication: Mixed hyperlipidemia On: 74-Caj-894216:16 Request Vitamin D Hydroxy (72727)Indication: Vitamin D deficiency On: 88-Qax-243284:15 Request VITAMIN B-12 (CYANOCOBALAMIN) (00131)Indication: B12 deficiency anemia On: 01-Kca-151962:15 Request METABOLIC PANEL, COMPREHENSIVE (02790)Indication: Fatigue On: :07 Request LIPID PANEL (95160)Indication: Mixed hyperlipidemia On: :07 Request VITAMIN B-12 (CYANOCOBALAMIN) (07376)Indication: B12 deficiency anemia On: :07 Request CBC (AUTO) ([id number])Indication: B12 deficiency anemia On: :07 Request Vitamin D Hydroxy (40633)Indication: Vitamin D deficiency On: :06 Request HgA1C , Office (79307)Indication: Diabetes mellitus type II, controlled, with no complications On: :55 Request CBC, PLATELETS & MANUAL DIFF (06717)Indication: Hypokalemia (Renamed from Decreased potassium in the blood) On: :08 Request Comments: recheck before 11-07-14 MICROALBUMIN: CREATININE RATIO (17254) AND (75949)Indication: Proteinuria On: :49 Request VITAMIN B-12 (CYANOCOBALAMIN) (41667)Indication: B12 deficiency anemia On: :56 Request Vitamin D Hydroxy (84227)Indication: Vitamin D deficiency On: :56 Request CBC WITH MANUAL DIFF ([id number])Indication: B12 deficiency anemia On: :55 Request METABOLIC PANEL, COMPREHENSIVE (92150)Indication: Hypertensive heart disease without heart failure On: :55 Request LIPID PANEL (42535)Indication: Mixed hyperlipidemia On: :55 Request LIPID PANEL (40728)Indication: Mixed hyperlipidemia On: :31 Request TSH (49143)Indication: Thyroid Nodule On: :31 Request MICROALBUMIN: CREATININE RATIO (92349) AND (10959)Indication: Diabetes mellitus type II, controlled, with no complications On: :31 Request METABOLIC PANEL, COMPREHENSIVE (86654)Indication: Diabetes mellitus type II, controlled, with no complications On: :31 Request URINALYSIS, W/ MICRO (20753)Indication: Proteinuria On: :30 Request Vitamin D Hydroxy (10242)Indication: Vitamin D deficiency On: :30 Request CBC, PLATELETS & AUT DIFF ([id number])Indication: B12 deficiency anemia On: :29 Request VITAMIN B-12 (CYANOCOBALAMIN) (56147)Indication: B12 deficiency anemia On: :29 Request HgA1C , Office (32576)Indication: Diabetes mellitus type II, controlled, with no complications On: :03 Request TSH (75963)Indication: Thyroid Nodule On: :39 Request LIPID PANEL (45524)Indication: Mixed hyperlipidemia On: :38 Request CBC WITH MANUAL DIFF (06673)Indication: Diabetes mellitus type II, controlled, with no complications On: :38 Request METABOLIC PANEL, COMPREHENSIVE (18330)Indication: Diabetes mellitus type II, controlled, with no complications On: :38 Request Vitamin D Hydroxy (54797)Indication: Vitamin D deficiency On: :22 Request CBC, PLATELETS & AUT DIFF ([id number])Indication: B12 deficiency anemia On: 59-Ltn-36194:22 Request VITAMIN B-12 (CYANOCOBALAMIN) (92080)Indication: B12 deficiency anemia On: :22 Request CBC WITH MANUAL DIFF ([id number])Indication: Diabetes mellitus type II, controlled, with no complications On: 41-Sgh-30395:12 Request METABOLIC PANEL, COMPREHENSIVE (06265)Indication: Diabetes mellitus type II, controlled, with no complications On: 33-Dnj-22406:12 Request HEPATIC FUNCTION PANEL (23997)Indication: Mixed hyperlipidemia On: 36-Qnr-87270:10 Request LIPID PANEL (62604)Indication: Mixed hyperlipidemia On: 01-Mpp-62784:10 Request VITAMIN B-12 (CYANOCOBALAMIN) (51071)Indication: B12 deficiency anemia On: 21-Feb-16135:02 Request TSH ([id number])Indication: Dysthymic disorder On: 78-Tzx-892174:17 Request CREATININE CLEARANCE (77692)Indication: Proteinuria On: 32-Gum-314376:15 Request 24 hour urine for Protein (45632)Indication: Proteinuria On: 35-Gqe-505928:15 Request VITAMIN B-12 (CYANOCOBALAMIN) (64913)Indication: B12 deficiency anemia On: 09-Ldm-999941:15 Request CCP ANTIBODY ([id number])Indication: Pain in unspecified joint On: 07-Nov-20119:47 Request LIPID PANEL (52769)Indication: Mixed hyperlipidemia On: 29-Yjt-823634:45 Request OVA & PARASITE DIR SMEAR (22579)Indication: Diarrhea On: :52 Request LEUKOCYTE COUNT, FECAL (78909)Indication: Diarrhea On: :52 Request Clostridium difficile Toxin A+B, EIA (65011)Indication: Diarrhea On: :52 Request HANSA CULTURE-STOOL (79934)Indication: Diarrhea On: :52 Request CBC WITH MANUAL DIFF ([id number])Indication: Hypertensive heart disease without heart failure On: 06-Pri-838818:11 Request METABOLIC PANEL, COMPREHENSIVE (70717)Indication: Hypertensive heart disease without heart failure On: 78-Jcj-198366:11 Request LIPID PANEL (66997)Indication: Mixed hyperlipidemia On: 61-Osx-224160:11 Request Influenza B Ag (34012)Indication: Myalgia and myositis On: 79-Isn-76205:06 Request Influenza A Ag (56455)Indication: Myalgia and myositis On: :06 Request METABOLIC PANEL, COMPREHENSIVE (94930)Indication: Uncomplicated herpes simplex On: 64-Erk-530016:13 Request MICROALBUMIN: CREATININE RATIO (76196) AND ([id number])Indication: Abnormal glucose tolerance test On: :32 Request METABOLIC PANEL, COMPREHENSIVE (96772)Indication: Hypertensive heart disease without heart failure On: :32 Request HEPATIC FUNCTION PANEL (85861)Indication: Mixed hyperlipidemia On: :31 Request LIPID PANEL (35116)Indication: Mixed hyperlipidemia On: :31 Request TSH (68884)Indication: Abnormal glucose tolerance test On: :19 Request LIPID PANEL (46134)Indication: Mixed hyperlipidemia On: 30-Vzn-352744:15 Request HEPATIC FUNCTION PANEL (63443)Indication: Mixed hyperlipidemia On: 36-Hda-840022:15 Request METABOLIC PANEL, COMPREHENSIVE (29633)Indication: Hypertensive heart disease without heart failure On: :56 Request HEPATIC FUNCTION PANEL (93233)Indication: Mixed hyperlipidemia On: :56 Request LIPID PANEL (30466)Indication: Mixed hyperlipidemia On: :56 Request MICROALBUMIN: CREATININE RATIO (63604) AND (53090)Indication: Abnormal glucose tolerance test On: :30 Request CBC WITH MANUAL DIFF ([id number])Indication: Abnormal glucose tolerance test On: :30 Request VITAMIN B-12 (CYANOCOBALAMIN) (94744)Indication: Tinnitus, unspecified laterality On: :24 Request METABOLIC PANEL, COMPREHENSIVE (01520)Indication: Hypertensive heart disease without heart failure On: :24 Request LIPID PANEL (75168)Indication: Mixed hyperlipidemia On: :24 Request URINALYSIS W/O MICRO (63812)Indication: Hypertensive heart disease without heart failure On: :12 Request TSH (17702)Indication: Hypertensive heart disease without heart failure On: 23-Aal-122041:12 Request CBC WITH MANUAL DIFF (50761)Indication: Hypertensive heart disease without heart failure On: 86-Gau-912322:12 Request METABOLIC PANEL, COMPREHENSIVE (44211)Indication: Hypertensive heart disease without heart failure On: 99-Bxf-875161:12 Request LIPID PANEL (88873)Indication: Mixed hyperlipidemia On: 36-Yen-549113:12 Request CBC with manual diff ([id number])Indication: Pre-operative examination On: :30 Request Metabolic Panel, Comprehensive ([id number])Indication: Pre-operative examination On: 32-Img-004890:30 Request Urinalysis, Office (33841)Indication: Pre-operative examination On: 74-Mtg-400725:29 Request Lipid Panel (15637)Indication: Mixed hyperlipidemia On: :52 Request Comments: in three months (approximately) TSH (90743)Indication: Hypertensive heart disease without heart failure On: :52 Request MICROALBUMIN URINE QUANT (82576)Indication: Hypertensive heart disease without heart failure On: :52 Request METABOLIC PANEL, COMPREHENSIVE (12242)Indication: Hypertensive heart disease without heart failure On: :52 Request CBC WITH MANUAL DIFF (17661)Indication: Hypertensive heart disease without heart failure On: :52 Request HEPATIC FUNCTION PANEL (60896)Indication: Mixed hyperlipidemia On: :52 Request LIPID PANEL (68802)Indication: Mixed hyperlipidemia On: :52 Request HEPATIC FUNCTION PANEL (36580)Indication: Mixed hyperlipidemia On: :54 Request LIPID PANEL (41087)Indication: Mixed hyperlipidemia On: :54 Request TSH (37523)Indication: pruritis On: :37 Request METABOLIC PANEL, COMPREHENSIVE (93949)Indication: pruritis On: :37 Request CBC WITH MANUAL DIFF ([id number])Indication: pruritis On: :37 Request LIPID PANEL (17848)Indication: Mixed hyperlipidemia On: :18 Request HEPATIC FUNCTION PANEL (14137)Indication: Mixed hyperlipidemia On: :18 Request HEPATIC FUNCTION PANEL (02538)Indication: Mixed hyperlipidemia On: :14 Request LIPID PANEL ([id number])Indication: Mixed hyperlipidemia On: 6-Izq-161207:14 Request Comments: 2mos Planned Encounters Medical; 3 Month FU - On: 24-Aug-2018 7:00 [facility] Margarita Drake DO, DO, Kathleen Planned Procedures ELECTROCARDIOGRAM, COMPLETE (ECG) On: 23-May-2018 Intent (86201)By: Margarita Drake DO Comments: sinus favio no acute chg Margarita GALARZA B 12 Injection, 1000 mcg (J3420)By: On: 23-May-2018 Intent Margarita Drake DO, DO, Comments: b12 1,000mcg/ml 1ml given L deltoid lot#[id number] exp: jpaige Margarita B 12 Injection, 1000 mcg (J3420)By: On: 26-Mar-2018 Intent Marlyn Roberts LPN Comments: [id number] dltdIMas UNARMED SECURITY OFFICER B 12 Injection, 1000 mcg (J3420)By: On: 19-Feb-2018 Intent Margarita Drake DO, DO, Comments: vitamin b12 1000mcg injectionlot: [id number]: 06/2019L DELT IMpt tolerated well Margarita B 12 Injection, 1000 mcg (J3420)By: On: 07-Dec-2017 Intent Margarita Drake DO Noelle DO, Comments: 1 ml given lt arm lot [id number] exp 01/20 Margarita B 12 Injection, 1000 mcg (J3420)By: On: 10-Nov-2017 Intent Margarita Drake DO, DO, Margarita CHEST XRAY, PA & LATERAL (57723)By: On: 26-Sep-2017 Intent Allyn Manley Aerosol Treatment (89487)By: Khanh On: 13-Sep-2017 Intent Ann Marie MCDANIEL Aerosol Treatment (02829)By: Vineet, On: 07-Sep-2017 Intent Allyn Comments: Lungs clear after aerosol treatment. B 12 Injection, 1000 mcg (J3420)By: On: 15-Aug-2017 Intent Margarita Drake DO, DO, Comments: vitamin b12 1000mcg injectionlot: [id number]: 10/2018L DELT IMpt tolerated wellAD UNARMED SECURITY OFFICER Margarita INFUSION, NORMAL SALINE SOLUTION , On: 10-Aug-2017 Intent 1000 CC (Special Coverage Instructions Apply. See MCM: 2048) (J7030)By: Libby Horn DO Toradol Injection, 30 mg (J1885)By: On: 09-Aug-2017 Intent Libby Horn DO Comments: toradol 30mg IV push -per dr. hornlot: [id number]: 11/2017IV push in 23g in R ACpt tolerated well. AD UNARMED SECURITY OFFICER INFUSION, NORMAL SALINE SOLUTION , On: 09-Aug-2017 Intent 1000 CC (Special Coverage Comments: 23g inserted to R AC per first attemptpt tolerated [id number] NS infusing Instructions Apply. See MCM: 2048) (J7030)By: Stefanie Ghosh XR RIB AND CHEST LEFT ([id number])By: Sergei On: 09-Aug-2017 Libby Zavala DO Comments: stat call wet read fall with left anterior inferior rib pain/sob B 12 Injection, 1000 mcg (J3420)By: On: 03-Aug-2017 Intent Visit, Nurse Comments: given - see flowsheet Dose-prefilled syringeRIGHT DLTD, IMgiven by:CIARA JarrellNVIS signed B 12 Injection, 1000 mcg (J3420)By: On: 01-Aug-2017 Intent Margarita Drake DO, DO, Comments: vitamin b12 1000mcg injectionlot: [id number]: 10/2018L DELT IMpt tolerated wellAD UNARMED SECURITY OFFICER Margarita B 12 Injection, 1000 mcg (J3420)By: On: 26-Jul-2017 Intent Margarita Drake DO, DO, Comments: vitamin b12 1000mcg injectionlot: [id number]: 10/2018L DELT IMpt tolerated wellAD UNARMED SECURITY OFFICER Margarita INTENSIVE BEHAVIORAL THERAPY TO On: 25-Jul-2017 Intent REDUCE CARDIOVASCULAR DISEASE RISK, INDIVIDUAL, FRMR-OO-EXWH, ANNUAL, 15 MINUTES ([id number])By: Margarita Drake DO, DO, Kathleen SCREENING DIGITAL TOMOSYNTHESIS OF On: 25-Jul-2017 Intent BREAST ([id number])By: Margarita Drake DO, DO, Kathleen B 12 Injection, 1000 mcg (J3420)By: On: 25-Jul-2017 Intent Margarita Drake DO, DO, Comments: vitamin b12 1000mcg injectionlot: [id number]: 10/2018L DELT IMpt tolerated wellAD UNARMED SECURITY OFFICER Margarita Rocephon Injection, 1 Gm (J0696)By: On: 13-Mar-2017 Intent Libby Horn DO Radiology - Finger(s) - RightBy: Sergei On: 13-Mar-2017 Libby Zavala DO Comments: second finger rule out osteo Aerosol Treatment (30629)By: Noelle On: 23-Sep-2016 Margarita Zavala DO, DO, Kathleen Comments: albulterol .83%more a/e but more noise- inspir and expir wheeze and junky Bone Density StudyBy: Davian Mccray MD On: 12-Nov-2015 Intent MAMMOGRAM, SCREENING, BOTH BREAST On: 12-Nov-2015 Intent (25531)By: Davian Mccray MD CT - Chest (Without Contrast)By: Shazia On: 05-Nov-2015 Intent Davian ARAGON Comments: low dose DEXA SCAN AXIAL SKELETON (08893)By: On: 29-Oct-2015 Intent Shazia ARAGON, Davian Ultrasound - ThyroidBy: Shazia ARAGON, On: 29-Oct-2015 Intent Davian BILATERAL MAMMOGRAMS (04413)By: Shazia On: 29-Oct-2015 Intent Davian ARAGON B 12 Injection, 1000 mcg (J3420)By: On: 06-Feb-2015 Intent Helga Horn DOa A B 12 Injection, 1000 mcg (J3420)By: On: 02-Jan-2015 Intent Sergei GALARZA Libby A Comments: lot [id number] exp 11/2015location L armroute imgiven by - msmith VIS and/or ABN signed CT - ChestBy: Helga Horn DOa A On: 07-Nov-2014 Intent MAMMOGRAM, SCREENING, BOTH BREAST On: 07-Nov-2014 Intent (21389)By: Libby Horn DO B 12 Injection, 1000 mcg (J3420)By: On: 07-Nov-2014 Intent Sergei GALARZA Libby A Comments: lot: [id number]: 06/19Dose: 1,000 mcgSite: l dltdLocation; IMby: B 12 Injection, 1000 mcg (J3420)By: On: 08-Oct-2014 Intent Sergei DO Libby A Comments: Lot:[id number]:05/20Dose:1mlRoute:IMSite:l liangGiven By:RAMÓN signed BILATERAL MAMMOGRAMS (90348)By: Sergei On: 08-Aug-2014 Intent Libby GALARZA A INJECTION, VITAMIN B-12 On: 23-Jun-2014 Intent CYANOCOBALAMIN, UP TO 1000 MCG Comments: lot [id number] 03/19location L armroute imgiven by - msmithVIS [...] On: 21-Mar-2014 Intent HERMANN (Ankle Brachial Index) (54863)By: On: 10-Feb-2014 Intent Fast DO, Libby A B 12 Injection, 1000 mcg (J3420)By: On: 11-Dec-2013 Intent Fast DO, Libby A Comments: Edgar dltd, [id number] flowsheetMegan CT - ChestBy: Fast DO, Libby A On: 11-Dec-2013 Intent Eprescribed prescriptions (G8553)By: On: 11-Dec-2013 Intent Fast DO, Libby A B 12 Injection, 1000 mcg (J3420)By: On: 30-Oct-2013 Intent Fast DO, Libby A Comments: lot: [id number]: 07/19site/route: Edgar del/IMamt: 1mLVIS signed when applicableChelsea, TECH WRITER Eprescribed prescriptions (G8553)By: On: 09-Sep-2013 Intent Rachel Leyva ELECTROCARDIOGRAM, COMPLETE (ECG) On: 27-Aug-2013 Intent ([id number])By: Ann Marie Cassidy CNP SPECIMEN HNDLNG/TRNSPRT, OFFC > LAB On: 18-Jun-2013 Intent (54794)By: Ann Marie Cassidy CNP MAMMOGRAM, SCREENING, BOTH BREASTS On: 04-Jun-2013 Intent (86518)By: Sergei DO Libby A DXA, BONE DENSITY, AXIAL SKELETON On: 04-Jun-2013 Intent ([id number])By: Fast DO Libby A CT - ChestBy: [...] MAMMOGRAM, SCREENING, BOTH BREASTS On: 01-Feb-2013 Intent (67030)By: Sergei DO Libby A Comments: end april CT - ChestBy: Fast DO Libby A On: 01-Feb-2013 Intent Comments: march or april B 12 Injection, 1000 mcg (J3420)By: On: 01-Feb-2013 Intent Sergei DO Libby A Eprescribed prescriptions (G8553)By: On: 01-Feb-2013 Intent Rachel Leyva B 12 Injection, 1000 mcg (J3420)By: On: 30-Oct-2012 Intent Rachel Leyva Comments: Lot:Exp:08/17Lot:[id number]:1mlRoute:imSite:L deltoidGiven by:BMY DXA, BONE DENSITY, AXIAL SKELETON On: 30-Oct-2012 Intent (24146)By: Sergei GALARZA Libby A Eprescribed prescriptions (G8553)By: On: 30-Oct-2012 Intent Rachel Leyva Nuclear Medicine - ThyroidBy: Noelle On: 24-Sep-2012 Intent DO, Margarita Noelle DO, Margarita Esophagram with 13 mmm tabletBy: On: 06-Sep-2012 Intent Noelle DO, Margarita Noelle DO, Margarita Eprescribed prescriptions (G8553)By: On: 06-Sep-2012 Intent Allyn Prajapati LPN B 12 Injection, 1000 mcg (J3420)By: On: 30-Jul-2012 Intent Sergei GALARZA Libby A Comments: Lot #:[id number] date: mount given: 1mlRoute: IMSite given: left deltoidGiven by: KADY Rehman CT - ChestBy: Sergei GALARZA Libby A On: 30-Jul-2012 Intent Ultrasound - ThyroidBy: Fast DO, On: 30-Jul-2012 Intent Libby A Eprescribed prescriptions (G8553)By: On: 30-Jul-2012 Intent Rachel Leyva Eprescribed prescriptions (G8553)By: On: 05-Jul-2012 Intent Alo Allyn ORTIZ MAMMOGRAM, SCREENING, BOTH BREASTS On: 23-Apr-2012 Intent (97209)By: Libby Horn DO CT - Chest (IV Contrast Needed)By: On: 21-Nov-2011 Intent Libby Horn DO Comments: thi is a follow up CT for abnormal ct chest in april 2011 TDAP VACCINE >7 IM (35887)By: On: 25-Jul-2011 Intent Rachel Leyva Comments: Lot:[id number]:07/21/13Amt:prefilledRoute:IMSite:left deltGiven By: ANGEL Anthony CT - Abdomen & PelvisBy: Sergei GALARZA, On: 25-Jul-2011 Intent Libby Ballard Comments: stat call wet read FLU VAC, SPLIT, >3 YEARS, INTRAMUSC On: 25-Jul-2011 Intent ([id number])By: Rachel Leyva Comments: pt refuses CT - ChestBy: Libby Horn DO On: 20-Apr-2011 Intent Comments: pe protocol Ultrasound - ThyroidBy: Sergei GALARZA, On: 04-Apr-2011 Intent Libby Ballard Comments: to be done in 6 months Spirometry (53012)By: Libby Horn DO On: 16-Mar-2011 Intent A Comments: good effort and curve normal Pulse Oximetry (88518)By: Sergei GALARZA, On: 16-Mar-2011 Intent Libby Ballard Comments: 97% EKG (18092)By: Libby Horn DO On: 16-Mar-2011 Intent Comments: ekg showed normal sinus rhythym, normal axis, no acute st/t wave changes poor rwave no change Radiology - Chest- PA and LatBy: Sergei On: 16-Mar-2011 Intent Libby GALARZA Ultrasound - ThyroidBy: Sergei GALARZA, On: 16-Mar-[address] - NeckBy: Libby Horn DO On: 17-Jan-2011 Intent Comments: soft tissue- mass right posterior cervical MAMMOGRAM, SCREENING, BOTH BREASTS On: 17-Jan-2011 Intent (85359)By: Libby Horn DO Pulse Oximetry (83997)By: Kahnh MCDANIEL, On: 14-Jun-2010 Intent Reema Aerosol Treatment (50056)By: Khanh On: 14-Jun-2010 Intent Ann Marie MCDANIEL DXA, BONE DENSITY, AXIAL SKELETON On: 23-Dec-2009 Intent (66602)By: Libby Horn DO MAMMOGRAM, SCREENING, BOTH BREASTS On: 23-Dec-2009 Intent (30229)By: Libby Horn DO A EKG (44390)By: Rachel Leyva On: 23-Dec-2009 Intent Comments: ekg- 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 no change normal axis MAMMOGRAM, SCREENING, BOTH BREASTS On: 25-Nov-2008 Intent (91255)By: Libby Horn DO EKG (12087)By: Libby Horn DO On: 25-Nov-2008 Intent Comments: ekg showed normal sinus with no lateral t wave inversioon and poor rwave progression- twave inversion anteriolry unchanged Spirometry (05821)By: Libby Horn DO On: 25-Nov-2008 Intent A Radiology - Chest- PA and LatBy: Fast On: 25-Nov-2008 Intent Libby GALARZA Pulse Oximetry (33093)By: Sergei GALARZA, On: 25-Nov-2008 Intent Libby Ballard Bio Z ([id number])By: Libby oHrn DO On: 14-May-2008 Intent Comments: high svr and normal cardiac output and thoracic fluid content- change to lotrel Radiology - ChestBy: Khanh Ann Marie MCDANIEL On: 30-Jan-2008 Intent E EKGBy: Khnah Ann Marie MCDANIEL On: 30-Jan-2008 Intent Venous [...] On: 09-Oct-2006 Intent Libby GALARZA Bio Z (15450)By: Libby Horn DO On: 09-Oct-2006 Intent Comments: high svr and low normal cardiac output- so will add in [place] [facility] Planned Medications INFUSION, NORMAL SALINE SOLUTION [...] Injection Solution Ordered: 23-May-2018 Pending Noelle Margarita GALARZAon DOMargarita Instructions Name Dates Details Diabetes mellitus type [...] without anemia Hypomagnesemia : DISCONTINUED - MAGNESIUM (41352) Indication: Hypomagnesemia Macrocytosis without anemia : DISCONTINUED - METABOLIC PANEL, BASIC (43273) Indication: Macrocytosis without anemia Nonsmoker : How [...] Mixed hyperlipidemia : DISCONTINUED - LIPID PANEL (97131) Indication: Mixed hyperlipidemia Mixed hyperlipidemia : DISCONTINUED - METABOLIC PANEL, COMPREHENSIVE (04048) Indication: Mixed hyperlipidemia Mixed hyperlipidemia : DISCONTINUED - LIPID PANEL (74338) Indication: Mixed hyperlipidemia Diabetes mellitus type 2, uncontrolled, without complications : DISCONTINUED - METABOLIC PANEL, COMPREHENSIVE (55647) Indication: Diabetes mellitus type 2, uncontrolled, without [...] Advance Directives Name Dates Details Immunization Registry [place] - Effective on Effective: 25-Jul-201707/25/2017. Expiration date [...] failure, Vitamin D deficiency (268.9), CAD in [place] artery [facility] Office Visit On: [...] severe, Vitamin D deficiency (268.9), CAD in [place] artery [facility] Visit On: [...] bronc hitis, post viral cough-given z-pack and slpnytlmmi-Wgzzq-hdvxk not feeling good- fatigue, fever, chills, high [...] The patient does have durable power of divorce attorney and living will. The patient has noticed nothing from the geriatic depression scale. Other providers contributing to the patient's care are group product manager, gastrologist and skein inspector. Encounter Diagnosis: BMI 26.0-26.9,adult, Hypomagnesemia, Nonsmoker, Pulmonary [...] issues sent to Transitional care unit at [place]. Saw Dr. Greene in trasitional care, had [...] on ??April 14. Up to date on TD07/2011 End: 13-Mar-2017 10:01 Encounter Diagnosis: BMI 28.0-28.9,adult, [...] for xofran.Told it was colitis. Admitted to [facility] and had monitoring then cath found 25% [place] cardio myopthy, placed on carvediolol 6.25mg Recently went to [facility] seen after Nonstemi, and low EF [...] is transitioning into care from a hospital ([facility] 10/23 to 10/27 pneumonia) and a [...] - Reason for hospitalization note: (was in [facility] er sun for bronchitis I used [...] home health. Sciatica will have block by [place]. Will be seeing Dr. Viri Mccray. and [...] The patient does have durable power of divorce attorney and living will. The patient has noticed lack of energy. Other providers contributing to the patient's care are pbx technician and other: (eye exam - 1 year [...] I noticed them on b/l arms on mondayEncounter Diagnosis: Therapeutic drug monitoring, Bruise End: 01-Oct-2015 [...] the fatigue is because traveling alot for [employer] and up late and trial coming upEncounter [...] shot- and she hasnt been back to [facility]- us reviewed and told her [...] Date: (02/10/14). Note for Follow up to [facility] laboratory test results: and MRI from 02/27/14 [...] had 3 shots in lower back by arpanchiara- she is having leg pain and aching- [...] evaluation: Surgery is with Dr. Yepez in [place]- [phone] and fax- [phone]- had stimulator removed- then had mri of [...] pressure (and trying to use hands or consulting property manager anything). There is no radiation. Associated symptoms [...] of complication (054.9), shingles, Collaborated with Dr. Horn [facility] Office Visit On: 31-Oct-2007 [...] better- couldnt get insurance to pay for Ordoro- [employer] works for her- thinks she needs to [...] Internal Medicine End: 31-May-2006 15:22 Payers MedicareCignaCybeverly ballard guarantor
--- OUTSIDE RECORDS SUMMARY | 2018-10-01 09:37 | XMS RPT_ITS | Continuity of Care Document ---
:1945 Author Organization [facility] Address [address] [place] [address] Phone Care Team Providers Name Role Phone Margarita Drake DO Unavailable Dr. Parminder Sung Unavailable Rj Ramirez Unavailable Dr. 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) Status: Active Canker sore [...] streudel for braekfast and fish sandwich at [facility] Status: Active Dysphagia, unspecified dysphagia (787.20) Comments: awaiting bx Status: Active Dysthymic disorder (F34.1, 300.4) Status: Active Elevated platelet count (R79.89, 790.6) Status: Active Encounter for annual general medical examination with abnormal findings in adult (Z00.01, V70.0) Status: Active Encounter for screening for malignant neoplasm of colon (Renamed from Special screening for malignant neoplasms, colon) (Z12.11, V76.51) Comments: last scope 03/20 [facility] Status: Active Encounter for screening mammogram [...] d ay (can buy a pedometer at [employer]), -5 days of week of 30 mins [...] Quantity: 1 {Tube} Refills: 2 Ordered:10-Apr-2018 Khanh DISTRICT MANAGER IN TRAINING, Reema Start : 10-Apr-2018 Active VITAMIN C & E COMBINATION, [id number] (Oral Capsule) 1 (one) Capsule Capsule qd [...] : 09-Apr-2018 Inactive Comments:Sixty script given to gijwbahD28.0 AUGMENTIN, 875-125MG (Oral Tablet) 1 Tablet bid [...] : 28-Jan-2016 End : 07-Feb-2016 Inactive NYSTATIN, 356999KNWC/GM (External Cream) apply Cream bid to affected [...] Start : 25-Oct-2007 Inactive VITAMIN D (ERGOCALCIFEROL), 63687JHZQ (Oral Capsule) 1 Capsule q weekly for [...] days Quantity: 60 {Capsule} Refills: 5 Ordered:14-May-2008 Seregi GALARZALibby Start : 14-May-2008 End : 14-May-2008 [...] Quantity: 10 {Vial} Refills: 3 Ordered:02-Sep-2016 Slarb TELECOM ASSISTANT, Marlyn Start : 21-Mar-2014 End : 02-Sep-2016 [...] physical examination (Z01.818, V72.83) Comments: ekg at [facility] with records from recent hospitalization Status: [...] (R06.02, 786.05) Comments: See referral letter from [facility] REspiratory scanned document Dr Munguia saw [...] and Obrych, surgical decompression /fusion c3-c6- 2013- [facility] Completed Date Value Details 07-May-2018 Discharge Instruction Result: Comments: See Note; NOTES: [facility] Medical Records Department [address] [place] [address] Discharge Instruction 05/07/18 0931 MR#: [id number] Acct: [id number] Name: Radha MAHARAJ Rep #: [id number] : 1945 72 From: Parminder Blanco MD [...] Department Summary Result: Comments: See Note; NOTES: [facility] Medical Records Department [address] [place] [address] Emergency Department Summary 05/07/18 0838 MR#: [id number] Acct: [id number] Name: MAR MAHARAJ Rep #: [id number] : 1945 72 From: Parminder Blanco MD PCP: Margarita Drake DO Status: DEP ER - ER Visit Summary Date of Service: 05/07/18 Chief Complaint: Nausea, vomiting and diarrhea History of Present Illness: The patient is a 72 F has a past medical history of valvular heart disease, hypertension, cholesterol spinal stenosis and multiple surgeries. Patient states she zoran t to [place] [employer] [place] on Monday. And she developed nausea [...] Dehydration This note was ge nerated with [employer] dictation software. It may contain incorrect words, [...] problems, contact your Primary Care Provider. Call [employer] [facility] ([phone]) or report to the closest Emergency Room. Call 911 if necessary. 05/07/18 1545 <Elec tronically signed by Parminder Blanco MD> Date Parminder Blanco MD Cosigner Signature (If Indicated): Date CC: Margarita Drake DO 22-Feb-2018 Downtime Report Result: Comments: See Note; NOTES: [facility] Medical Records Department [address] [place] [address] Downtime Report MR#: [id number] Acct: [id number] Name: MAR MAHARAJ Rep #: [id number] : 1945 72 From: Gilson Washington PCP: Margarita Drake DO Status: REG CLI This patient was seen during an EMR downtime February 05, 2018 - February 12, 2018. This patient may have a combination o f paper and electronic documentation or all paper documentation. All documentation is viewable within the e-chart portion of [employer] for each patient visit. 08-Feb-2018 Spine Lumbar (Routine) Result: Comments: See Note; NOTES: [facility] Imaging Services [address] [place] [address] Spine Lumbar (Routine) MR#: [id number] Acct: [id number] Name: MAR MAHARAJ Rep #: [id number] : 1945 F 72 From: Dylan Donato MD PCP: Margarita Drake DO Status: REG CLI Study: Spine Lumbar (Routine) Date of Exam: 02/08/18 Exam# [id number] Ordering Dr: De Yepez STUDY: MRI LUMBAR [...] , CC: NICO YEPEZ; Margarita Drake DO Assembler Movement: Signed 08-Feb-2018 Spine Lumbar without Contrast Result: Comments: See Note; NOTES: [facility] Imaging Services [address] [place] [address] Spine Lumbar without Contrast MR#: [id number] Acct: [id number] Name: MAR MAHARAJ Rep # : [id number] : 1945 F 72 From: Robles Mejia PCP: Margarita Drake DO Status: REG CLI Study: Spine Lumbar without Contrast Date of Exam: 02/08/18 Exam# [id number] Ordering Dr: De Yepez STUDY: C T [...] paraspinous soft tissue structures. ORDE R #: [id number] CT/Spine Lumbar without Contrast IMPRESSION: Multilevel degenerative change discussed above. Hardware as described. Right L3 pedicle screw appears broken. Grade 1 anterolisthesis of L4 on L5. Laminectomies. Demineralization. Electronically Signed: Robles Mejia DO at 10:57 EDT , Service support , CC: DE Drake DO Assembler Movement: Signed 09-Jan-2018 Pulmonary Visit Report Result: Comments: See Note; NOTES: [facility] [address] [place] [address] OFFICE VISIT Date of Service: 01/09/18 MR#: [id number] Acct: [id number] Name: MAR HOLLIDAY Rep #: [id number] : 1945 Provider: Adair Wu MD Age/Sex: [...] 4 M FU Chief Complaint: Follow up Database Support Required: No DME Vendor: CHUN Accompanie d [...] 10/12/17 [History Confirmed 12/03/17] Hydrocodone Bitart/Apap 5-325 [[place] 5MG-325MG] 1 tab PO Q6H PRN PRN 3 Days #10 tab 12/03/17 [Rx] sodium chloride 0.65 % nasal spray aerosol 2 spray INTRANASAL QHS ml 01/09/18 [History Confirmed 01/09/18] PFSH Medical History Hyperlipidemia (Chronic) Elevated blood pressure reading without diagnosis of hypertension (Chronic) 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) Nonrheumatic aortic (valve) [...] developed, well nourished and good hygiene Significant valnezuela noted Head Hea d: Positive normocephalic and [...] Date (if applicable) CC: Ann Marie Cassidy IDENTIFICATION TECHNICIAN; Margarita Drake 03-Dec-2017 Emergency Department Summary Result: Comments: See Note; NOTES: [facility] Medical Records Department [address] [place] [address] Emergency Department Summary 12/03/17 1656 MR#: [id number] Acct: [id number] Name: MAR MAHARAJ Rep #: [id number] : 1945 72 From: Arya Torrez MD [...] blunt trauma This note was generated with [employer] dictation software. It may contain incorrect words, spelling, and punctuation that were not noted in review of the chart prior to signing ED Disposition - Plan for ED Patient: Disposition: Home or Assisted Living Chief Complaint: Chest Other Instructions: ED Contusion Vs Minor Fx Rib Prescriptions: Hydrocodone Bitart/Apap 5-325 [[place] 5MG-325MG] 1 tab PO Q6H PRN PRN 3 Days #10 tab PRN Reason: Alena n Referrals: Margarita Drake, [Primary Care Provider] - 1 Week if not improving What to do if you have Problems For any increased pain, shortness of breath, bleeding, nausea or vomiting, chest pa in, or any unexpected problems, contact your Primary Care Provider. Call [facility] ([phone]) or report to the closest Emergency Room. Call 911 if necessary. 12/03/17 1706 <Electron ically signed by Arya Torrez MD> Date Arya Torrez MD Cosigner Signature (If Indicated): Date CC: Margarita Drake DO 03-Dec-2017 Chest PA and Lateral Result: Comments: See Note; NOTES: [facility] Imaging Services [address] [place] [address] Chest PA and Lateral MR#: [id number] Acct: [id number] Name: MAR MAHARAJ Rep #: [id number] : 1945 F 72 From: Lotus Anthony MD PCP: Margarita Drake DO Status: DEP ER Study: Chest PA and Lateral Date of Exam: 12/03/17 Exam# [id number] Ordering Dr: Arya Torrez MD STUDY: X-RAY [...] CC: Margarita Drake DO; Arya Torrez MD Assembler Movement: Signed 18-Oct-2017 SCREENING MAMM (CAD), BILAT Result: Comments: See Note; NOTES: [facility] Imaging Services [address] [place] [address] SCREENING MAMM (CAD), BILAT MR#: [id number] Acct: [id number] Name: MAR MAHARAJ Rep #: [id number] : 1945 F 72 From: Florian Valenzuela MD PCP: Margarita Drake DO Status: REG CLI Study: SCREENING MAMM (CAD), BILAT Date of Exam: 10/18/17 Exam# [id number] Ordering Dr: Alysia Drake DO MAMMOGRAPHY - [...] 19, 2015 and November 17, 2014. FINDINGS: [address] [facility] Composition: There are scattered areas of [...] delay biopsy of a clinically suspicious abnormality. [id number] Electronically Signed: Florian Howard i, MD at 13:51 EST Tel [phone], Service support , CC: Margarita Drake DO Assembler Movement: Signed 13-Oct-2017 Cardiology Visit Report Result: Comments: See Note; NOTES: [facility] [address] [place] [address]. [address] [place] [address] OFFICE VISIT Date of Service: 10/13/17 MR#: [id number] Acct: [id number] Name: MAR MAHARAJ Rep #: [id number] : 1945 Provider: Sergio Lawler MD Age/Sex: 72/F [facility] Status: Signed HPI HPI Chief Complaint: [...] reading without diagnosis of hypertension (Chronic) Other exterminator (current) drug ther apy (Chronic) Nonrheumatic aortic (valve) insufficiency (Chronic) Nonrheumatic tricuspid (valve) insufficiency (Chronic) Other secondary pulmonary hypertension (Chronic) Nonischemic cardiomyopathy (Director Compliance deangelo) Fatigue (Chronic) Hx pulmonary embolism (Resolved) [...] AND Plan 1. Coronary artery disease involving [place] coronary artery of [place] heart without angina pectoris I25.10 Mild Plan [...] vis,est,level 3 Diagnoses Coronary artery disease involving [place] coronary artery of [place] heart without angina pectoris I25.10 Coronary Disease-Associated Artery/Lesion type: [place] artery [place] vs. transplanted heart: [place] heart Associated angina: without angina Essential hyperten tamika I10 Hypertension type: essential hypertension Coding Level of Care Code Off vis,est,level 3 Diagnoses Coronary artery disease involving [place] coronary artery of [place] heart without angina pect wilber I25.10 Coronary Disease-Associated Artery/Lesion type: [place] artery [place] vs. transplanted heart: [place] heart Associated angina: without angina Essential hypertension I10 Hypertension type: esse ntial hypertension 10/13/17 1546 <Electronically signed by Sergio Lawler MD> Date Sergio Lawler MD Cosigner Signature: Date _ (if applicable) CC: Margarita Drake DO 26-Sep-2017 Chest PA and Lateral Result: Comments: See Note; NOTES: [facility] Imaging Services [address] [place] [address] Chest PA and Lateral MR#: [id number] Acct: [id number] Name: MAR MAHARAJ Rep #: [id number] : 1945 F 72 From: Quinn Pringle PCP: Margarita Drake DO Status: REG CLI Study: Chest PA and Lateral Date of Exam: 09/26/17 Exam# [id number] Ordering Dr: Allyn Manley IDENTIFICATION TECHNICIAN-C STUDY: X-RAY C HEST REASON FOR EXAM: [...] , CC: HUANG Manley; Margarita Drake DO Assembler Movement: Signed 22-May-2017 History and Physical Exam Result: Comments: See Note; NOTES: [facility] Medical Records Department [address] [place] [address] History and Physical 05/22/17 1809 MR#: [id number] Acct: [id number] Name: RUDY MAHARAJ Rep #: [id number] : 1945 71 From: Edward Chao DO [...] knee (Chronic) Sinusitis, chronic (Chronic) Takotsubo cardiomyopathy (Director Compliance deangelo) chairi malformations/p posterior decompr (Chronic) Allergies [...] 7 back surgeries Psychiatric History: Anxiety, Depression 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 Call [facility] barnard ([phone]) or report to the closest Emergency Room. Call 911 if necessary. 05/22/17 1710 <Electronically signed by Angelo William MD> Date Angelo William MD Cosigner Signature (If Indicated): Date CC: Ann Marie Cassidy 22-May-2017 Brain/Head without Contrast Result: Comments: See Note; NOTES: [facility] Imaging Services [address] [place] [address] Brain/Head without Contrast MR#: [id number] Acct: [id number] Name: MAR MAHARAJ Rep #: [id number] : 1945 F 71 From: Dorothy Barber MD PCP: Ann Marie Cassidy Status: REG ER Study: Brain/Head without Contrast Date of Exam: 05/22/17 Exam# [id number] Ordering Dr: Angelo William MD STUDY : [...] CC: Ann Marie Cassidy; Angelo William MD Assembler Movement: Signed 22-May-2017 Chest 1 View (Portable) Result: Comments: See Note; NOTES: [facility] Imaging Services [address] [place] [address] Chest 1 View (Portable) MR#: [id number] Acct: [id number] Name: MAR MAHARAJ Rep #: [id number] : 1945 F 71 From: Dorothy Barber MD PCP: Ann Marie Cassidy Status: REG ER Study: Chest 1 View (Portable) Date of Exam: 05/22/17 Exam# [id number] Ordering Dr: Angelo William MD STUDY: X-RAY [...] CC: Ann Marie Cassidy; Angelo William MD Assembler Movement: Signed 17-May-2017 Emergency Department Summary Result: Comments: See Note; NOTES: [facility] Medical Records Department [address] [place] [address] Emergency Department Summary 05/17/17 1543 MR#: [id number] Acct: [id number] Name: MAR MAHARAJ Rep #: [id number] : 1945 71 From: Tab Peacock MD [...] problems, contact your Primary Care Provider. Call [employer] [facility] ([phone]) or report to the closest Emergency Room. Call 911 if necessary. 05/17/17 1652 <Electronically signed b austin Peacock MD> Date Tab Peacock MD Cosigner Signature (If Indicated): Date CC: Ann Marie Cassidy 28-Apr-2017 Emergency Department Summary Result: Comments: See Note; NOTES: [facility] Medical Records Department [address] [place] [address] Emergency Department Summary 04/28/17 1059 MR#: [id number] Acct: [id number] Name: MAR MAHARAJ Rep #: [id number] : 1945 71 From: Tab Peacock MD [...] Primary Care Provider. Call [facility] ([phone]) or report to the closest Emergency Room. Call 911 if necessary. 04/28/17 1306 <Electronically signed by Tab Peacock MD> Date Tab Peacock MD Cosigner Signature (If Indicated): Date CC: Ann Marie Cassidy 28-Apr-2017 Chest 1 View (Portable) Result: Comments: See Note; NOTES: [facility] Imaging Services [address] [place] [address] Chest 1 View (Portable) MR#: [id number] Acct: [id number] Name: MAR MAHARAJ Rep #: [id number] : 1945 F 71 From: Sekou Bose DO PCP: Ann Marie Cassidy Status: REG ER Study: Chest 1 View (Portable) Date of Exam: 04/28/17 Exam# [id number] Ordering Dr: Tab Peacock MD STUDY: X-RAY [...] CC: Ann Marie Cassidy; Tab Peacock MD Assembler Movement: Signed 12-Apr-2017 Echocardiogram Complete Result: Comments: See Note; NOTES: [facility] Cardiovascular Services [address] [place] [address] Echo Complete 04/12/17 1150 MR#: [id number] Acct: [id number] Name: MAR MAHARAJ Rep #: [id number] : 1945 71 From: Sergio Lawler MD Attending Dr: Nuris ARAGON,Sergio Status: REG CLI Ordering Dr: Sergio Lawler MD Date: 04/12/17 Location: [facility] Sex: F C Admitted: [...] Dictated: 04/12/17 1 150 Date Transcribed: 04/12/171648 Assembler Movement: Signed 13-Mar-2017 Finger(s) Min 2 Views Result: Comments: See Note; NOTES: [facility] Imaging Services [address] [place] [address] Verdana 4d Finger(s) Min 2 Views MR#: [id number] Acct: [id number] Name: MAR MAHARAJ Katy p #: [id number] : 1945 F 71 From: Maldonado Pablo DO PCP: Ann Marie Cassidy Status: REG CLI Study: Finger(s) Min 2 Views Date of Exam: 03/13/17 Exam# [id number] Ordering Dr: Libby Horn DO STUDY: X-RA [...] Maldonado Pablo DO at 22:01 EDT Tel [phone], Service support , CC: Ann Marie Horn DO Assembler Movement: Signed 15-Feb-2017 Cerv Spine 4 or 5 Views Result: Comments: See Note; NOTES: [facility] Imaging Services [address] [place] [address] Verdana 4d Cerv Spine 4 or 5 Views MR#: [id number] Acct: [id number] Name: MAR MAHARAJ Rep #: [id number] : 1945 F 71 From: Vitaly Turner MD PCP: Ann Marie Cassidy Status: REG CLI Study: Cerv Spine 4 or 5 Views Date of Exam: 02/15/17 Exam# [id number] Ordering Dr: De Yepez STUDY: X -RAY [...] Service support , CC: Ann Marie YEPEZ Assembler Movement: Signed 14-Feb-2017 Spine Lumbar (Routine) Result: Comments: See Note; NOTES: [facility] Imaging Services [address] [place] [address] Anju 4d Spine Lumbar (Routine) MR#: [id number] Acct: [id number] Name: MAR MAHARAJ ep #: [id number] : 1945 F 71 From: Dylan Donato MD PCP: Ann Marie Cassidy Status: REG CLI Study: Spine Lumbar (Routine) Date of Exam: 02/14/17 Exam# [id number] Ordering Dr: Abdiel Betts MD LORENA DY: [...] CC: Ann Marie Cassidy; Abdiel Betts MD Assembler Movement: Signed 22-Jan-2017 Abdomen/Pelvis without Cont Result: Comments: See Note; NOTES: [facility] Imaging Services [address] [place] [address] Verdana 4d Abdomen/Pelvis without Cont MR#: [id number] Acct: [id number] Name: JOHN MAHARAJ Rep #: [id number] : 1945 F 71 From: Jeb Piedra MD PCP: Ann Marie Cassidy Status: REG ER Study: Abdomen/Pelvis without Cont Date of Exam: 01/22/17 Exam# [id number] Ordering Dr: Stacy Corey MD STUDY: CT [...] CC: Ann Marie Cassidy; Noelle Corey MD Assembler Movement: Signed 25-Dec-2016 Venous Duplex Lower Extremity Result: Comments: See Note; NOTES: [facility] Cardiovascular Services [address] [place] [address] Venous Duplex US, Unilateral 12/23/16 1042 MR#: [id number] Acct: [id number] Name: MAR DEAN Rep #: [id number] : 1945 71 From: David Hawthorne MD [...] Date Dictated: 12/23/16 1042 Date Transcribed: 12/25/161936 Assembler Movement: Signed 19-Dec-2016 Chest 1 View (Portable) Result: Comments: See Note; NOTES: [facility] Imaging Services [address] [place] [address] Verdana 4d Chest 1 View (Portable) MR#: [id number] Acct: [id number] Name: MAR MAHARAJ Rep #: [id number] : 1945 F 71 From: Alfa Bettencourt MD PCP: Ann Marie Cassidy Status: REG ER Study: Chest 1 View (Portable) Date of Exam: 12/19/16 Exam# [id number] Ordering Dr: Edin Rodriguez MD STUDY: X- [...] CC: Ann Marie Cassidy; Edin Rodriguez MD Assembler Movement: Signed 19-Dec-2016 Abdomen/Pelvis without Cont Result: Comments: See Note; NOTES: [facility] Imaging Services [address] [address] Verdana 4d Abdomen/Pelvis without Cont MR#: [id number] Acct: [id number] Name: JOHN MAHARAJ Rep #: [id number] : 1945 F 71 From: Alfa Bettencourt MD PCP: Ann Marie Cassidy Status: REG ER Study: Abdomen/Pelvis without Cont Date of Exam: 12/19/16 Exam# [id number] Ordering Dr: Edin Rodriguez MD S KARINEDY: [...] CC: Ann Marie Cassidy; Edin Rodriguez MD Assembler Movement: Signed 15-Dec-2016 Emergency Department Summary Result: Comments: See Note; NOTES: [facility] Medical Records Department [address] [place] [address] Emergency Department Summary MR#: [id number] Acct: [id number] Name: JOHN MAHARAJ Rep #: [id number] : 1945 71 From: Shon Amaya MD [...] pain SHON AMAYA MD T: RUFUS JOB: [id number] 12/15/16 1522 <Electronically signed by Shon Amaya MD> Date Shon Amaya MD Cosigner Signature (If Indicated): Date CC: Ann Marie Cassidy Date Dictated: 12/13/162342 Date Transcribed: 12/13/162342 Assembler Movement: Signed 15-Dec-2016 12 Lead Electrocardiogram Result: Comments: See Note; NOTES: [facility] Cardiovascular Services [address] [place] [address] 12 Lead EKG 12/13/161602 MR#: [id number] Acct: [id number] Name: CAROL ANNMAR S Re p #: [id number] : 1945 71 From: Astrid Merlos MD [...] undetermined Abnormal ECG Confirmed by ASTRID MERLOS ([id number]), make up editor CHRISTIAN [place] ([id number]) on 017 1:15:30 PM Referred By: JOSE LUIS Confirmed By:ASTRID MERLOS 12/15/16 1315 Date Astrid Merlos MD CC: Ann Marie Cassidy Date Dictated: 12/13/16 1603 Date Transcribed: 12/13/16 160 Assembler Movement: Signed 14-Dec-2016 Venous Duplex Lower Extremity Result: Comments: See Note; NOTES: [facility] Cardiovascular Services [address] [place] [address] Venous Duplex US, Unilateral 12/13/16 1612 MR#: [id number] Acct: [id number] Name: MAR DEAN Rep #: [id number] : 1945 71 From: Rj Cleary MD [...] Dictated: 12/13/16 1612 Date Transcribed: 12/14/16 0603 Assembler Movement: Signed 13-Dec-2016 Discharge Instruction Result: Comments: See Note; NOTES: [facility] Medical Records Department [address] [place] [address] Discharge Instruction 12/13/16 190 MR#: [id number] Acct: [id number] Name: CAROL ANNRadha WEBBDEION Muñoz Rep #: [id number] : 1945 71 From: Shon Amaya MD [...] your Primary Care Provider. Call [facility] ([phone]) or report to the closest Emergency Room. Call 911 if necessary. 12/13/162044 <Electronically signed by Shon Amaya MD&amp ;#62; Date Shon Amaya MD Cosigner Signature (If Indicated): Date CC: Ann Marie Cassidy 13-Dec-2016 Chest 1 View (Portable) Result: Comments: See Note; NOTES: [facility] Imaging Services [address] [place] [address] Verdana 4d Chest 1 View (Portable) MR#: [id number] Acct: [id number] Name: MAR MAHARAJ Rep #: [id number] : 1945 F 71 From: Trent Arias MD PCP: Ann Marie Cassidy Status: REG ER Study: Chest 1 View (Portable) Date of Exam: 12/13/16 Exam# [id number] Ordering Dr: Shon Amaya MD STUDY: X-RAY [...] MD at 17:07 EDT , Service support [phone], CC: Ann Marie Csasidy; Shon Amaya MD Assembler Movement: Signed 13-Dec-2016 Abdomen/Pelvis W IV Cont ONLY Result: Comments: See Note; NOTES: [facility] Imaging Services [address] [place] [address] Verdana 4d Abdomen/Pelvis W IV Cont ONLY MR#: [id number] Acct: [id number] Name: LILI MAHARAJ Rep #: [id number] : 1945 F 71 From: Trent Arias MD PCP: Ann Marie Cassidy Status: REG ER Study: Abdomen/Pelvis W IV Cont ONLY Date of Exam: 12/13/16 Exam# [id number] Ordering Dr: Shon Amaya MD STUDY: CT [...] MD at 18:25 EDT , Service support [phone], CC: Ann Marie Cassidy; Shon Amaya MD Assembler Movement: Signed 15-Nov-2016 History and Physical Exam Result: Comments: See Note; NOTES: [facility] Medical Records Department [address] [place] [address] History and Physical 11/09/16 1003 MR#: [id number] Acct: [id number] Name: Radha MAHARAJ Rep #: [id number] : 1945 71 From: Glenn Ro PCP: Ann Marie Cassidy Status: PRE IN Location: [facility] DATE OF SERVICE: 11/22/2016 This [...] hip arthroplasty in 2003, Dr. Darien Avina, [facility]. 2. Hysterectomy. 3. Appendectomy. 4. Cholec ystectomy. 5. Brain surgery x2 Arnold-Chiari malformation. 6. Carpal tunnel bilaterally. 7. Cervical surgery, December 2013 at [place]. 8. Right total knee arthroplasty on August 19, 2014, Dr. Darien Avina , [facility] [facility]. 9. Laminectomy 2000, instrumentation lumbar fusion. 10. Right total hip arthroplasty in 2013, revision assistive devices. The patient admits to full upper dentures. Denies glasses or hearing aids. SOCIAL HISTORY: The patient is retired, works part-time. Denies tobacco use, denies alcohol use, denies illicit drug use. REVIEW OF SYSTEMS: Documented in the [facility] medical hi story sheet, please refer to [...] of left knee dated October 17, 2016, [facility], weightbearing, AP, tunnel, sunrise, lateral views [...] the hospital. YADIRA Narvaez T: RUFUS JOB: [id number] 11/15/16 0839 <Electronically signed by Glenn Ro > Date: Time: Glenn Ro CC: Ann Marie Cassidy; Glenn Ro Date Dictated: 11/09/16 1003 Date Transcribed: 7 1003 Assembler Movement: Signed ____ I have re-examined the patient. There are no clinical changes since date of exam. ____ See Progress Notes for Changes ____ Dictated on Admission Date: ___ Time: Signature: 24-Oct-2016 History and Physical Exam Result: Comments: See Note; NOTES: [facility] Medical Records Department [address] [place] [address] History and Physical 10/19/16 1537 MR#: [id number] Acct: [id number] Name: Radha MAHARAJ Rep #: [id number] : 1945 71 From: Glenn Ro PCP: Ann Marie Cassidy Status: PRE IN Location: [facility] DATE OF SERVICE: 10/25/2016 This [...] a previous right total knee arthroplasty in [facility] er 2013, is very pleased with [...] arthroplasty i n 2003, Dr. Darien Avina, [facility]. 2. Hysterectomy. 3. Appendectomy. 4. Cholecystectomy. 5. Brain surgery x2. Arnold-Chiari malformation. 6. Carpal tunnel bilaterally. 7. Cervical surgery in ril 2013 in [place]. 8. Right total knee arthroplasty on August 19, 2014, Dr. Darien Avina, [facility]. 9. Laminectomy 2001 instrumentation, lumbar fusion. 10. Right total hip arthroplasty in 2013 , revision. ASSISTIVE DEVICES: The patient admits to full upper dentures. Denies glasses or hearing aids. SOCIAL HISTORY: The patient is retired, but works part-time. She denies tobacco use, denies al cohol use, denies illicit drug use. REVIEW OF SYSTEMS: Documented in the [facility] medical history sheet. Please refer to attached [...] X-rays of l eft knee dated 10/17/2016, [facility], weightbearing, AP, tunnel, [...] Ro Date Dictated: 10/19/161536 Date Transcribed: 10/19/161536 Assembler Movement: Toni rodriguezed ____ I have re-examined the patient. There are no clinical changes since date of exam. ____ See Progress Notes for Changes ____ Dictated on Admission Date: Time: Sig nature: 23-Oct-2016 Chest PA and Lateral Result: Comments: See Note; NOTES: [facility] Imaging Services [address] [place] [address] Verdana 4d Chest PA and Lateral MR#: [id number] Acct: [id number] Name: MAR MAHARAJ Rep #: [id number] : 1945 F 71 From: Heraclio Meredith MD PCP: Ann Marie Cassidy Status: PRE ER Study: Chest PA and Lateral Date of Exam: 10/23/16 Exam# [id number] Ordering Dr: Edin Horton MD STUDY: X-RAY [...] MD at 14:44 EST , Service support [phone], CC: Mary Cassidy; Edin Horton MD Assembler Movement: Signed 23-Sep-2016 Echocardiogram Complete Result: Comments: See Note; NOTES: [facility] Cardiovascular [address] [address] Echo Complete 09/23/16 1311 MR#: [id number] Acct: [id number] Name: MAR MAHARAJ Rep #: [id number] : 1945 71 From: Sergio Lawler MD [...] Dictated: 09/23/16 1311 Date Transcribed: 09/23/16 1521 Assembler Movement: Signed 21-Sep-2016 12 Lead Electrocardiogram Result: Comments: See Note; NOTES: [facility] Cardiovascular Services [address] [place] [address] 12 Lead EKG 09/18/16 1204 MR#: [id number] Acct: [id number] Name: MAR MAHARAJ Katy p #: [id number] : 1945 71 From: Cade Harrison MD [...] ECG Confirmed by OMAR ARAGON, CADE ([id number]), make up editor CHRISTIAN WASHINGTON ([id number]) on 09/21/2016 1:40:15 PM Referred By: FLORIN Confirmed By:CADE HARRISON MD 09/21/16 2010 Date Cade Harrison MD CC: Ann Marie Cassidy Date Dictated: 09/18/16 1204 Date Transcribed: 09/18/16 1204 Assembler Movement: Signed 20-Sep-2016 Emergency Department Summary Result: Comments: See Note; NOTES: [facility] Medical Records Department [address] [place] [address] Emergency Department Summary MR#: [id number] Acct: [id number] Name: JOHN MAHARAJ Rep #: [id number] : 1945 71 From: Edin Rodriguez MD [...] C: Ann Marie Cassidy T: NTS JOB: [id number] 09/20/16 1522 <Electronically signed by Edin Rodriguez MD> Date __ Edin Rodriguez MD Cosigner Signature (If Indicated): Date CC: Ann Marie Cassidy Date Dictated: 09/18/16 1339 Date Trans cribed: 09/18/16 133 Assembler Movement: Signed 18-Sep-2016 Discharge Instruction Result: Comments: See Note; NOTES: [facility] Medical Records Department [address] [place] [address] Discharge Instruction 09/18/16 1334 MR#: [id number] Acct: [id number] Name: Radha MAHARAJ Rep #: [id number] : 1945 71 From: Edin Rodriguez MD [...] problems, contact your Primary Care Provider. Call [employer] [facility] ([phone]) or report to the closest Emergency Room. Call 911 if necessary. 09/18/16 1336 & #60;Electronically signed by Edin Rodriguez MD> Date Edin Rodriguez MD Cosigner Signature (If Indicated): Date CC: Ann Marie Pennynury 18-Sep-2016 Chest PA and Lateral Result: Comments: See Note; NOTES: [facility] Imaging Services [address] [place] [address] Verdana 4d Chest PA and Lateral MR#: [id number] Acct: [id number] Name: CAROL ANNJOHN ADKINSNellie Muñoz Rep #: [id number] : 1945 F 71 From: Rolly Aviles MD PCP: Ann Marie Cassidy Status: REG ER Study: Chest PA and Lateral Date of Exam: 09/18/16 Exam# [id number] Ordering Dr: Edin Rodriguez MD STUDY: X-RAY [...] 13:29 EST Te l , Service support [phone], CC: Ann Marie Cassidy; Edin Rodriguez MD Assembler Movement: Signed 17-Aug-2016 Knee 4 or More Views Result: Comments: See Note; NOTES: [facility] Imaging Services [address] [place] [address] Verdana 4d Knee 4 or More Views MR#: [id number] Acct: [id number] Name: MAR MAHARAJ Rep #: [id number] : 1945 F 71 From: Florian Valenzuela MD PCP: Davian Mccray Status: REG CLI Study: Knee 4 or More Views Date of Exam: 08/17/16 Exam# [id number] Ordering Dr: Gemma Nina MD STUD Y: [...] Florian Valenzuela MD at 15:48 EST Tel [phone], Service support [phone], CC: Tejal Mccray; Gemma Nina MD Assembler Movement: Signed 17-Aug-2016 Tibia AND Fibula 2 Views Result: Comments: See Note; NOTES: [facility] Imaging Services [address] [place] [address] Verdana 4d Tibia AND Fibula 2 Views MR#: [id number] Acct: [id number] Name: MAR MAHARAJ Rep #: [id number] : 1945 F 71 From: Florian Valenzuela MD PCP: Davian Mccray Status: REG CLI Study: Tibia AND Fibula 2 Views Date of Exam: 08/17/16 Exam# [id number] Ordering Dr: Gemma Nina STUDY: X-RAY - [...] Florian Valenzuela MD at 15:42 EST Tel [phone], Service support [phone], CC: Davian Nina MD Assembler Movement: Signed 01-Jul-2016 Venous Duplex Lower Extremity Result: Comments: See Note; NOTES: [facility] Cardiovascular Services [address] [place] [address] Venous Duplex US, Unilateral 07/01/16 0850 MR#: [id number] Acct: [id number] Name: MAR MAHARAJ Rep #: [id number] : 1945 70 From: David Hawthorne MD Attending Dr: Luly Noriega IDENTIFICATION TECHNICIAN Status: REG CLI Ordering Dr: Luly Noriega IDENTIFICATION TECHNICIAN-C Date: 07/01/16 Location: [facility] Sex: F C [...] called and/or faxed augmentation. to Luly Noriega IDENTIFICATION TECHNICIAN @ 9:20 am @ [facility] is [...] Date Dictated: 07/01/16 0850 Date Transcribed: 07/01/161936 Assembler Movement: Signed 07-Jun-2016 6 Minute Walk Test Result: Comments: See Note; NOTES: [facility] Pulmonary Services/Neurology [address] [place] [address] MR#: [id number] Acct: [id number] Name: MAR MAHARAJ Rep #: [id number] : 1945 70 From: Adair Wu MD Referring Dr: Luly Noriega NP Date: Ordering Dr: Sex: F C Location: PSN PSN 6 Minute Walk Test - 6 Minute Walk Test 6 Minute Walk Test: 6 Minute Walk Test PSN:6-Minute Walk Test Start: 06/07/16 11:18 Freq: Status: Active Document 06/07/16 11:18 REK (Rec: 06/07/16 11:21 REK [id number]) 6 Minute Walk Test Date Performed 06/07/16 [...] CC: Date Dictated: 06/07/161540 Date Transcribed: 06/07/161540 Assembler Movement: Adair Wu Signed 25-Apr-2016 Chest PA and Lateral Result: Comments: See Note; NOTES: [facility] Imaging Services [address] [place] [address] Verdana 4d Chest PA and Lateral MR#: [id number] Acct: [id number] Name: MAR MAHARAJ Re p #: [id number] : 1945 F 70 From: Stephen Walton DO PCP: Davian Mccray Status: REG ER Study: Chest PA and Lateral Date of Exam: 04/25/16 Exam# [id number] Ordering Dr: Cristhian Mandujano MD STUDY: X-R [...] Stephen Walton DO at 20:12 EDT Tel [phone], Service support [phone], CC: CRISTHIAN MANDUJANO MD; Davian Mccray Assembler Movement: Signed 25-Apr-2016 Abdomen/Pelvis without Cont Result: Comments: See Note; NOTES: [facility] Imaging Services [address] [place] [address] Verdana 4d Abdomen/Pelvis without Cont MR#: [id number] Acct: [id number] Name: GABE MAHARAJ JAMAAL S Rep #: [id number] : 1945 F 70 From: Stephen Walton DO PCP: Davian Mccray Status: REG ER Study: Abdomen/Pelvis without Cont Date of Exam: 04/25/16 Exam# [id number] Ordering Dr: Cristhian Mandujano MD STUDY: CT [...] Stephen Walton DO at 19:00 EDT Tel [phone], Service support [phone], CC: CRISTHIAN MANDUJANO MD; Davian Mccray Assembler Movement: Signed 12-Mar-2016 Emergency Department Summary Result: Comments: See Note; NOTES: [facility] Medical Records Department [address] [place] [address] Emergency Department Summary MR#: [id number] Acct: [id number] Name: MAR MAHARAJ Rep #: [id number] : 1945 70 From: Darien Warren MD [...] contusion. Darien Warren MD T: NTS JOB: [id number] 03/12/16 0306 <Electronically signed by Darien Warren MD> Date Darien Warren MD Cosigner Signature (If Indicated): Date CC: Davian Mccray Date Dictated: 2326 Date Transcribed: 03/10/162326 Assembler Movement: Signed 10-Mar-2016 Discharge Instruction Result: Comments: See Note; NOTES: [facility] Medical Records Department [address] [place] [address] Discharge Instruction 03/10/162006 MR#: [id number] Acct: [id number] Name: MAR MAHARAJ Rep #: [id number] : 1945 70 From: Darien Warren MD PCP: Davian Mccray Status: [facility] ER ED Disposition - Plan for ED Patient: Chief Complaint: Lower Extremity Injury Instructions: ED Hip Contusion Referrals: Davian Mccray [Primary Care Provider] - 3-5 Days if not improving What to do if you have Problems For any increased pain, shortness of breath, bleeding, n ausea or vomiting, chest pain, or any unexpected problems, contact your doctor. Call [facility] ([phone]) or report to the closest Emergency Room. Call 911 if necessary. 03/10/162007 <Electronically signed by Darien Warren MD> Date Darien Warren MD Cosigner Signature (If Indicated): Date CC: Davian Mccray 10-Mar-2016 Hip 2-3 Views with Pelvis Result: Comments: See Note; NOTES: [facility] Imaging Services [address] [place] [address] Verdana 4d Hip 2-3 Views with Pelvis MR#: [id number] Acct: [id number] Name: MAR DEAN Rep #: [id number] : 1945 F 70 From: Robles Mejia PCP: Davian Mccray Status: [facility] ER Study: Hip 2-3 Views with Pelvis Date of Exam: 03/10/16 Exam# [id number] Ordering Dr: Carlos Eduardo Warren MD STUDY: [...] MejiaDO at 19:47 EDT , Service support [phone], RAD/Hip 2-3 Views with Pelvis IMPRESSION: Hip joint space narrowing. Stable degenerative changes left hip. No fracture or dislocation. 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 ABNORMAL 25-Jan-2016 Pelvis 1 or 2 Views Result: Comments: See Note; NOTES: [facility] Imaging Services [address] [place] [address] Verdana 4d Pelvis 1 or 2 Views MR#: [id number] Acct: [id number] Name: Radha MAHARAJ Rep #: [id number] : 1945 F 70 From: Doroteo Salgado MD PCP: Davian Mccray Status: REG CLI Study: Pelvis 1 or 2 Views Date of Exam: 01/25/16 Exam# [id number] Ordering Dr: Yadira Nina dma, MD STUDY: [...] at 16 :50 EDT , Service support [phone], RAD/Pelvis 1 or 2 Views IMPRESSION: Focus [...] at 16:50 EDT , Service suppor t [phone], CC: Davian Mccray; Gemma Nina MD Assembler Movement: Signed 19-Nov-2015 Vert Fx Asess/Lat Bone Den(H) Result: Comments: See Note; NOTES: [facility] Imaging Services [address] [place] [address] Verdana 4d Vert Fx Asess/Lat Bone Den(H) MR#: [id number] Acct: [id number] Luciano e: MAR MAHARAJ Rep #: [id number] : 1945 F 70 From: Florian Valenzuela MD PCP: Davian Mccray Status: REG CLI Study: Vert Fx Asess/Lat Bone Den(H) Date of Exam: 11/19/15 Exam# [id number] Chucho solorio Dr: Davian Mccray STUDY: DUAL [...] Florian Valenzuela MD at 8:52 EDT Tel [phone], Service support [phone], CC: Davian Mccray Assembler Movement: Signed 19-Nov-2015 Bilat Scrn Digital AND CAD Result: Comments: See Note; NOTES: [facility] Imaging Services [address] [place] [address] Verdana 4d Bilat Scrn Digital AND CAD MR#: [id number] Acct: [id number] Name: MAR MAHARAJ Rep #: [id number] : 1945 F 70 From: Florian Valenzuela MD PCP: Davian Mccray Status: REG CLI Study: Bilat Scrn Digital AND CAD Date of Exam: 11/19/15 Exam# [id number] Ordering Dr: Davian Mccray MAMMOGRAPHY - BILATERAL [...] Florian Valenzuela MD at 10:06 EDT Tel [phone], Service support [phone], CC: Davian Mccray Assembler Movement: Signed 19-Nov-2015 Bilat Scrn Digital AND CAD Result: Comments: See Note; NOTES: [facility] Imaging Services [address] [place] [address] Verdana 4d Bilat Scrn Digital AND CAD MR#: [id number] Acct: [id number] Name: MAR MAHARAJ Rep #: [id number] : 1945 F 70 From: Florian Valenzuela MD PCP: Davian Mccray Status: REG CLI Study: Bilat Scrn Digital AND CAD Date of Exam: 11/19/15 Exam# [id number] Ordering Dr: Davian Mccray MAMMOGRAPHY - BILATERAL [...] Florian Valenzuela MD at 10:06 EDT Tel [phone], Service support [phone], CC: Davian Mccray Assembler Movement: Signed 19-Nov-2015 Dexa Bone Density Study (HP) Result: Comments: See Note; NOTES: [facility] Imaging Services [address] [place] [address] Verdana 4d Dexa Bone Density Study () MR#: [id number] Acct: [id number] Name : MAR MAHARAJ Rep #: [id number] : 1945 F 70 From: Florian Valenzuela MD PCP: Davian Mccray Status: [facility] Study: Dexa Bone Density Study () Date of Exam: 11/19/15 Exam# [id number] Order ing Dr: Davian Mccray STUDY: DUAL [...] Florian Valenzuela MD at 12:53 EDT Tel [phone], Service support [phone], F ax [phone] CC: Davian Mccray Assembler Movement: Signed 19-Nov-2015 Thyroid Result: Comments: See Note; NOTES: [facility] Imaging Services [address] [place] [address] Verdana 4d Thyroid MR#: [id number] Acct: [id number] Name: MAR MAHARAJ Rep #: [id number] : 1945 F 70 From: Stephen Walton DO PCP: Davian Mccray Status: REG CLI Study: Thyroid Date of Exam: 11/19/15 Exam# [id number] Ordering Dr: Davian Mccray STUDY: THYROID ULTRASOUN [...] Stephen Walton DO at 16:48 EDT Tel [phone], Service support [phone], CC: Davian Mccray Assembler Movement: Signed 17-Dec-2014 Cerv Spine 2 or 3 Views Result: Comments: See Note; NOTES: [facility] Imaging Services [address] [place] [address] Radiology Report MR#: [id number] Acct: [id number] Name: MAR MAHARAJ Rep #: [id number] : 1945 F 69 From: Vitaly Turner MD PCP: Fast DO,Libby Status: REG CLI Study: Cerv Spine 2 or 3 Views Date of Exam: 12/17/14 Exam# [id number] Ordering Dr: De Yepez STUDY: X-RAY - [...] at 11:32 EDT Tel , Service support [phone], 0045 RAD/Cerv Spine 2 or 3 Views IMPRESSION: Status post anterior fusion from C3-C6, with 3 mm extrusion of the C6 screw. Loss of the normal lordosis. No signs of instability. Electronically Signed: Vitaly Turner MD, FACR at 11:32 EDT , Service support [phone], CC: DE YEPEZ; Libby Horn DO Assembler Movement: Signed 17-Dec-2014 Spine Cervical (Routine) Result: Comments: See Note; NOTES: [facility] Imaging Services [address] [place] [address] MRI Report MR#: [id number] Acct: [id number] Name: MAR MAHARAJ Rep #: [id number] : 1945 F 69 From: Vitaly Turner MD PCP: Libby Horn DO Status: REG CLI Study: Spine Cervical (Routine) Date of Exam: 12/17/14 Exam# [id number] Ordering Dr: De Yepez STUDY: MRI CERVIC [...] FACR at 11:15 EDT , Service support [phone], CC: DE YEPEZ; Libby Horn DO Assembler Movement: Signed 15-Dec-2014 Thyroid Result: Comments: See Note; NOTES: [facility] Imaging Services [address] [place] [address] Ultrasound Report MR#: [id number] Acct: [id number] Name: MAR MAHARAJ Rep #: [id number] : 1945 F 69 From: Stephen Walton DO PCP: Libby Horn DO Status: REG CLI Study: Thyroid Date of Exam: 12/15/14 Exam# [id number] Ordering Dr: Lisa Garcia MD STUDY: THYROID [...] Stephen Walton DO at 13:38 EDT Tel [phone], Service support [phone], CC: Libby Horn DO; Lisa Garcia MD Assembler Movement: Signed 17-Nov-2014 Bilat Scrn Digital AND CAD Result: Comments: See Note; NOTES: [facility] Imaging Services [address] [place] [address] Breast Imaging Report MR#: [id number] Acct: [id number] Name: MAR MAHARAJ Rep #: [id number] : 1945 F 69 From: Alfa Bettencourt MD PCP: Libby Horn DO Status: REG CLI Study: Bilat Scrn Digital AND CAD Date of Exam: 11/17/14 Exam# [id number] Ordering Dr: Libby Horn DO MAMMOGR APHY [...] at 12:06 EDT Tel , Service support [phone], CC: Libby Horn DO Assembler Movement: Signed 17-Nov-2014 Chest without Contrast Result: Comments: See Note; NOTES: [facility] Imaging Services [address] [place] [address] CAT Scan Report MR#: [id number] Acct: [id number] Name: MAR MAHARAJ Rep #: [id number] : 1945 F 69 From: Alfa Bettencourt MD PCP: Libby Horn DO Status: REG CLI Study: Chest without Contrast Date of Exam: 11/17/14 Exam# [id number] Ordering Dr: Libby Horn DO STUDY: CT [...] at 10:21 EDT Tel , Service support [phone], CC: Libby Horn DO Assembler Movement: Signed 23-Sep-2014 Brain/Head without Contrast Result: Comments: See Note; NOTES: [facility] Imaging Services [address] [facility] [place] [address] CAT Scan Report MR#: [id number] Acct: [id number] Name: MAR MAHARAJ Rep #: [id number] : 1945 F 69 From: Parminder Rashid MD PCP: Libby Horn DO Status: REG ER Study: Brain/Head without Contrast Date of Exam: 09/23/14 Exam# [id number] Ordering Dr: Rachel Avina MD STUDY: CT [...] MD at 21:19 EST , Service support [phone], CC: Libby Horn DO; Rachel Avina MD Assembler Movement: Signed 23-Sep-2014 Spine Cervical without Contras Result: Comments: See Note; NOTES: [facility] Imaging Services [address] [place] [address] CAT Scan Report MR#: [id number] Acct: [id number] Name: MAR MAHARAJ Rep #: [id number] : 1945 F 69 From: Parminder Rashid MD PCP: Libby Horn DO Status: REG ER Study: Spine Cervical without Contras Date of Exam: 09/23/14 Exam# [id number] Ordering Dr: Rachel Avina MD LORENA DY: [...] MD at 21:25 EST , Service support [phone], CC: Libby Horn DO; Rachel Avina MD Assembler Movement: Signed 21-Aug-2014 Discharge Instruction Result: Comments: See Note; NOTES: [facility] Medical Records Department [address] [place] [address] Instructions for Home/Discharge Instructions 08/21/14 1712 MR#: [id number] Acc t: [id number] Name: MAR MAHARAJ Rep #: [id number] : 1945 69 From: Galo Antonio PA-C PCP: Libby Horn DO Status: ADM [...] needed. Additional Instructions: F/U APPT S PER [facility] POST-OP INSTRUCTIONS F/U WITH GLENN RO 09/03/14 9:15 AM PHYSICAL THERAPY APPT WITH CADE @ [facility] 08/25/14 @ 9:00 AM, WILL HAVE TO [...] Please Follow Up With: Glenn Ro 08/21/14 6306 <Electronically signed by Galo Antonio PA-C> Date ___ Galo Antonio PA-C CC: Libby Horn DO 19-Aug-2014 Knee 1 or 2 Views Result: Comments: See Note; NOTES: [facility] Imaging Services [address] [place] [address] Radiology Report MR#: [id number] Acct: [id number] Name: MAR MAHARAJ Rep #: [id number] : 1945 F 69 From: Bakari Kenny MD PCP: Libby Horn DO Status: ADM IN Study: Knee 1 or 2 Views Date of Exam: 08/19/14 Exam# [id number] Ordering Dr: Darien Avina MD STUDY: X-RAY [...] MD at 16:29 EST , Service support [phone], CC: Libby Horn DO; Darien Avina MD Assembler Movement: Signed 12-Aug-2014 History and Physical Exam Result: Comments: See Note; NOTES: [facility] Medical Records Department [address] [place] [address] History and Physical 08/11/14 1334 MR#: [id number] Acct: [id number] Name: MAR MAHARAJ Rep #: [id number] : 1945 69 From: Glenn Ro PCP: Libby oHrn DO Status: PRE IN Location: [facility] DATE OF SERVICE: 08/19/2014 PRIMARY [...] b.i.d. REVIEW OF SYSTEMS: Documented in the [facility] medical history sheet. Please refer to the [...] of right knee dated May 30, 2014, [facility], weightbearing, AP, tunnel, [...] consent form. YADIRA Narvaez T: NTS JOB: [id number] 08/12/14 0740 <Electronically signed by Glenn Ro > Date: Time: Glenn Ro CC: Glenn Horn DO Date Dictated: 08/11/141333 Date Transcribed: 08/11/141333 Assembler Movement: Signed ____ I have re-examined the patient. There a re no clinical changes since date of exam. ____ See Progress Notes for Changes ____ Dictated on Admission Date: Time: Signature: 23-May-2014 Hip min 2 Views Result: Comments: See Note; NOTES: [facility] Imaging Services [address] [place] [address] Radiology Report MR#: [id number] Acct: [id number] Name: MAR MAHARAJ Rep #: [id number] : 1945 F 68 From: Florian Valenzuela MD PCP: Libby Horn DO Status: REG CLI Study: Hip min 2 Views Date of Exam: 05/23/14 Exam# [id number] Ordering Dr: Libby Horn DO STUDY: X-RAY [...] Florian Valenzuela MD at 9:41 EDT Tel [phone], Service support [phone], CC: Libby Horn DO Assembler Movement: Signed 23-May-2014 Knee 4 or More Views Result: Comments: See Note; NOTES: [facility] Imaging Services [address] [place] [address] Radiology Report MR#: [id number] Acct: [id number] Name: MAR MAHARAJ Rep #: [id number] : 1945 F 68 From: Florian Valenzuela MD PCP: Libby Horn DO Status: REG CLI Study: Knee 4 or More Views Date of Exam: 05/23/14 Exam# [id number] Ordering Dr: Libby Horn DO STUDY: X- [...] Florian Valenzuela MD at 9:42 EDT Tel [phone], Service support [phone], CC: Libby Horn DO Assembler Movement: Signed 02-May-2014 Chest without Contrast Result: Comments: See Note; NOTES: [facility] Imaging Services [address] [place] [address] CAT Scan Report MR#: [id number] Acct: [id number] Name: MAR MAHARAJ Rep #: [id number] : 1945 F 68 From: Cristhian Spears MD PCP: Libby Horn DO Status: REG CLI Study: Chest without Contrast Date of Exam: 05/02/14 Exam# [id number] Ordering Dr: Libby Horn DO STUDY: CT CH EST WITHOUT CONTRAST [...] at 15:32 EDT Tel , Service support [phone], CC: Libby Horn DO Assembler Movement: Signed 02-May-2014 Thyroid Result: Comments: See Note; NOTES: [facility] [facility] [address] [place] [address] Ultrasound Report MR#: [id number] Acct: [id number] Name: MAR MAHARAJ Rep #: [id number] : 1945 F 68 From: Stephen Walton DO PCP: Libby Horn DO Status: REG CLI Study: Thyroid Date of Exam: 05/02/14 Exam# [id number] Ordering Dr: Libby Horn DO STUDY: THYROID [...] Stephen Walton DO at 19:17 EDT Tel [phone], Service support [phone], CC: Libby Horn DO Assembler Movement: Signed 27-Feb-2014 L/S Spine Min 4 Views Result: Comments: See Note; NOTES: [facility] Imaging Services [address] [place] [address] Radiology Report MR#: [id number] Acct: [id number] Name: MAR MAHARAJ Rep #: [id number] : 1945 F 68 From: Florian Valenzuela MD PCP: Libby Horn DO Status: REG CLI Study: L/S Spine Min 4 Views Date of Exam: 02/27/14 Exam# [id number] Ordering Dr: De Yepez STUDY: X-R AY [...] Florian Valenzuela MD at 10:31 EDT Tel [phone], Service support [phone], RAD/L/S Spine Min 4 Views IMP RESSION: The patient is status post laminectomy and fusion at the L3-L4 and L4- L5 levels with bone graft and bone stimulator. Grade 2 anterolisthesis of L4 on L5. Electronically Signed: Florian khan MD at 10:31 EDT Tel [phone], Service support [phone], CC: DE YEPEZ; Libby Horn DO Assembler Movement: Signed 27-Feb-2014 Spine Lumbar (Routine) Result: Comments: See Note; NOTES: [facility] Imaging Services [address] [place] [address] MRI Report MR#: [id number] Acct: [id number] Name: MAR MAHARAJ Rep #: [id number] : 1945 F 68 From: Angus Arreola PCP: Libby Horn DO Status: REG CLI Study: Spine Lumbar (Routine) Date of Exam: 02/27/14 Exam# [id number] Ordering Dr: De Yepez STUDY: MRI LUMBAR [...] MD at 7:48 EDT , Service support [phone], CC: DE Horn DO Assembler Movement: Signed 10-Feb-2014 Cerv Spine 2 or 3 Views Result: Comments: See Note; NOTES: [facility] Imaging Services [address] [place] [address] Radiology Report MR#: [id number] Acct: [id number] Name: MAR MAHARAJ Rep #: [id number] : 1945 F 68 From: Florian Valenzuela MD PCP: Libby Horn DO Status: REG CLI Study: Cerv Spine 2 or 3 Views Date of Exam: 02/10/14 Exam# [id number] Ordering Dr: De Yepez STUDY: X -RAY [...] Florian Valenzuela MD at 15:54 EDT Tel [phone], Service support [phone], RAD/Cerv Spine 2 or 3 Views IMPRESSION: Status post anterior fu tamika at the C3-C4, C4-C5 and C5-C6 levels. No abnormal movement occurs between the vertebral segments. Electronically Signed: Florian Valenzuela MD at 15:54 EDT Tel [phone], Service support [phone], CC: DE YEPEZ; Libby Horn DO Assembler Movement: Signed 13-Jan-2014 Echocardiogram Complete Result: Comments: See Note; NOTES: [facility] Cardiovascular Services [address] [place] [address] Echo Complete 01/10/14 1155 MR#: [id number] Acct: [id number] Name: LESLY MAHARAJ Rep #: [id number] : 1945 68 From: Sergio Lawler MD Attending Dr: Nuris ARAGON,Sergio Status: REG CLI Ordering Dr: Sergio Lawler MD Date: 01/10/14 Location: [facility] Sex: F C Admitted: [facility] This was a 2D Doppler, [...] Dictated: 01/10/14 1155 Date Transcribed: 01/13/14 1103 Assembler Movement: Signed 20-Jun-2013 Valeri Thrasher Digital & CAD Result: Comments: See Note; NOTES: [facility] Imaging Services [address] [place] [address] Breast Imaging Report MR#: [id number] Acct: [id number] Name: MAR MAHARAJ Rep #: [id number] : 1945 F 67 From: Florian Valenzuela MD PCP: Status: REG CLI Exam# [id number] Ordering Dr: Libby Horn DO MAMMOGRAPHY - [...] 20, 2013 at 9: 52:55 AM EDT [phone] Electronically Signed GP/GP If you are the referring physician and would like to consult with the radiologist who provided this interpretation, please contact Florian Valenzuela M.D. at [phone]. If this radiologist is unavailable, you will be directed to another radiologist to assist. If you are a patient with a question regarding this report, please contact your referring physician directly. Professional Interpretation Provided By: [employer], Phone , These documents contain legally protected [...] of these documents. CC: Hari Horn DO Assembler Movement: Signed 20-Jun-2013 Dexa Bone Density Study (HP) Result: Comments: See Note; NOTES: [facility] Imaging Services [address] [place] [address] Bone Density Report MR#: [id number] Acct: [id number] Name: MAR MAHARAJ Rep #: [id number] : 1945 F 67 From: Florian Valenzuela MD PCP: Status: [facility] Study: Dexa Bone Density Study (HP) Date of Exam: 06/20/13 Exam# [id number] Ordering Dr: Libby Horn DO STUDY: DUAL [...] angel luis mbar spine. On the lateral communications professor view, there is evidence of loss of [...] June 20, 2013 at 10:14:39 AM EDT [phone] Electronically Signed GP/GP If you are the referring physician and would like to consult with the radiologist who provided this interpretation, please contact Florian Valenzuela M.D. at [phone]. If this radiologist is unavailable, you will be directed to another radiologist to assist. If you are a patient with a question regarding this report, plea se contact your referring physician directly. Professional Interpretation Provided By: [employer], Phone , These documents contain legally protected [...] of these documents. CC: Libby Horn DO Assembler Movement: Signed 06-Jun-2013 Chest without Contrast Result: Comments: See Note; NOTES: [facility] Imaging Services [address] [place] [address] CAT Scan Report MR#: [id number] Acct: [id number] Name: MAR MAHARAJ Rep #: [id number] : 1945 F 67 From: Florian Valenzuela MD PCP: Status: REG CLI Study: Chest without Contrast Date of Exam: 06/06/13 Exam# [id number] Ordering Dr: Libby Horn DO STUDY: CT [...] June 06, 2013 at 10:07:38 AM EDT [phone] Electronically Signed GP/GP If you are the referring physician and would like to consult with the radiologist who provided this interpretation, please contact Florian Valenzuela M.D. at [phone]. If this radiologist is unavailable, you will be directed to another radiologist to assist. If you are a patient with a question regarding this report, please contact your referring physician directly. Professional Interpretation Provided By: [employer], Phone , These documents contain legally protected [...] of these documents. CC: Libby Horn DO Assembler Movement: Signed 06-Jun-2013 Chest without Contrast Result: Comments: See Note; NOTES: [facility] Imaging Services [address] [place] [address] CAT Scan Report MR#: [id number] Acct: [id number] Name: MAR MAHARAJ Rep #: [id number] : 1945 F 67 From: Florian Valenzuela MD PCP: Status: REG CLI Study: Chest without Contrast Date of Exam: 06/06/13 Exam# [id number] Ordering Dr: Libby Horn DO STUDY: CT [...] June 06, 2013 at 10:07:38 AM EDT [phone] Electronically Signed GP/GP If you are the referring physician and would like to consult with the radiologist who provided this interpretation, please contact Florian Valenzuela M.D. at [phone]. If this radiologist is unavailable, you will be directed to another radiologist to assist. If you are a patient with a question regarding this report, please contact your referring physician directly. Professional Interpretation Provided By: [employer], Phone , These documents contain legally protected [...] of these documents. 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 [address] [place], [place], [address] Absolute Lymph 1.24 {X10_3/ul} (Normal) Range: 0.83-4.51 [...] 4.2-5.4 WBC 6.6 K/mm3 (Normal) Range: 4.4-11.0 59-Ahy-378416:34 Comprehensive Metabolic Profil Comments: [facility] [address] [place], [address] GAP 11 (Normal) Range: 5-15 CO2 28.0 [...] A.D.A. criteria.Please note revised GLUCOSE reference range vykncyvvp23/02/2018. :32 HgA1C , Office (82275) HgA1C , Office 6.3 % (Normal) Range: 4.6 - 7.1 :32 Blood Glucose , Office (36543) Blood Glucose , Office 133 (Normal) :16 Miscellaneous Lab Procedure Comments: Comments: [id number]; URINE TOX; RUN LOWEST TEST IN LABCOTest(s) Ordered: [id number]; URINE TOX; RUN LOWEST TEST IN [facility] [address] [place], [place], [address] [facility] Comments: [id number] 6+OXYCODONE-BUND (ng/mL)DRUG RESULT SCREEN CUTOFF____ Amphetamines,Urine Negat LAB (Normal) ananth ng/mL 1000Amphetamine test includes Amphetamine and Methamphetamine.Barbiturates Negative ng/mL 200Benzodiazepines Negative ng/mL 200Cannabinoid TEST Negative ng/mL 20Cocaine (Metab) Negative ng/mL 300Opiates Negative ng/mL 300 Opiates test includes Codeine, Morphine, Hydromorphone, Malone codone.Oxycodone/Oxymorphone,Urine Negative ng/mL 300 Test includes Oxydodone and Oxymorphone. TESTING PERFORMED AT [facility]. ORIGINAL REPORT ON FILE IN LAB CONTAINS ADDITIONAL TEST SITE INFORMATION. :16 Urine Drug Screen (VISTA) Comments: Comments: [id number]; URINE TOX; RUN LOWEST TEST IN LABCORPList of Drugs Taken or Suspected? [facility] [address] [place], [address] THC NEGATIVE (Normal) PCP NEGATIVE [...] TESTING MUST BE ORDERED SEPARATELY. USE TESTMNEMONIC: [facility] 48-Dcs-94114:28 Microscopic Examination Comments: PATIENT WAS FASTINGPERFORMED BY: LabCoLour[facility] of Burlington CountyHxdkfl6778 [facility] [id number] Bacteria Few (Normal) Mucus Threads Present (Normal) Epithelial Cells (non renal) 0-10 {/hpf} (Normal) Range: 0 - 10 RBC 0-2 {/hpf} (Normal) Range: 0 - 2 WBC 0-5 {/hpf} (Normal) Range: 0 - 5 :52 Basic Metabolic Profile (BMP) Comments: [facility] [address] [place], [address] GAP 10 (Normal) Range: 5-15 [...] A.D.A. criteria.Please note revised GLUCOSE reference range jdfwusmlg41/02/2018. 07-May-20188:52 CBC W/Diff, Automated Comments: [facility] [address] [place], [place], [address] Absolute Lymph 1.75 {X10_3/ul} (Normal) Range: 0.83-4.51 [...] Range: 4.4-11.0 :05 CBC W/Diff, Automated Comments: [facility] [address] [place], [place], [address] Absolute Lymph 1.82 {X10_3/ul} (Normal) Range: 0.83-4.51 [...] Range: 4.4-11.0 :05 Comprehensive Metabolic Profil Comments: [facility] [address] [place], [address] GAP 12 (Normal) Range: 5-15 CO2 28.0 [...] A.D.A. criteria.Please note revised GLUCOSE reference range pdbmxmybv78/02/2018. 15-Tgw-77536:28 CALCIFEDIOL (05495) Comments: PATIENT WAS FASTINGPERFORMED BY: [facility] Qbehvm8687 [facility] [id number] Vitamin D, 25-Hydroxy 45.7 ng/mL (Normal) Range: 30.0-100.0 Comments: Vitamin D deficiency has been defined by the [place] ofMedicine and an Endocrine Society practice guideline as alevel of serum 25-OH vitamin D less than 20 ng/mL (1,2).The Endocrine Society went on to further define vitamin Dinsufficiency as a level between 21 and 29 ng/mL (2).1. IOM ([place] of Medicine). 2010. Dietary reference intakes for calcium and D. [place]: The National Academies Press.2. Delma MF, Mckenna ABDALLA, Dane MACKENZIE, et al. Evaluation, treatment, and prevention of vitamin D deficiency: an Endocrine Society clinical practice guideline. JCEM. 2010; 96(7):1911-30. :28 VITAMIN B-12 (CYANOCOBALAMIN) Comments: PATIENT WAS FASTINGPERFORMED BY: [facility] [place] [id number] (98318) Vitamin B12 507 pg/mL (Normal) Range: 232-1245 :28 TSH (60573) Comments: PATIENT WAS FASTINGPERFORMED BY: [employer] [place] [id number] TSH 0.816 {uIU/mL} (Normal) Range: 0.450-4.500 :28 URINALYSIS, W/ MICRO (04710) Comments: PATIENT WAS FASTINGPERFORMED BY: [employer] [place] [id number] Microscopic Examination See below: (Normal) Comments: Microscopic was indicated and was performed. Nitrite, Urine Negative (Normal) Urobilinogen,Semi-Qn 0.2 mg/dL (Normal) Range: 0.2-1.0 Bilirubin Negative (Normal) Occult Blood Negative (Normal) Ketones Negative (Normal) Glucose Negative (Normal) Protein Negative (Normal) WBC Esterase 1+ (Abnormal) Appearance Clear (Normal) Urine-Color Yellow (Normal) pH 7.0 (Normal) Range: 5.0-7.5 Specific Shafter 1.017 (Normal) Range: 1.005-1.030 :28 MICROALBUMIN: CREATININE RATIO Comments: PATIENT WAS FASTINGPERFORMED BY: [facility] [place] [id number] (68991) AND (64942) Alb/Creat Ratio 9.9 {mg/g_creat} (Normal) Range: 0.0-30.0 Albumin, Urine 7.9 ug/mL (Normal) Creatinine, Urine 79.8 mg/dL (Normal) :28 METABOLIC PANEL, COMPREHENSIVE Comments: PATIENT WAS FASTINGPERFORMED BY: LabWho-Sells-it.com6370 [facility] [id number] (19236) ALT (SGPT) 13 [iU]/L (Normal) Range: 0-32 [...] 8-27 Glucose 142 mg/dL (Abnormal) Range: 65-99 28-Eeh-59100:28 LIPID PANEL (26534) Comments: PATIENT WAS FASTINGPERFORMED BY: LabCoMobile TheoryLsimny0428 [facility] [id number] LDL/HDL Ratio 3.2 {ratio} (Normal) Range: 0.0-3.2 Comments: LDL/HDL Ratio Men Women 1/2 Avg.Risk 1.0 1.5 Av g.Risk 3.6 3.2 2X Avg.Risk 6.2 5.0 3X Avg.Risk 8.0 6.1 LDL Cholesterol Calc 143 mg/dL (Abnormal) Range: 0-99 VLDL Cholesterol Peg 29 mg/dL (Normal) Range: 5-40 HDL Cholesterol 45 mg/dL (Normal) Triglycerides 143 mg/dL (Normal) Range: 0-149 Cholesterol, Total 217 mg/dL (Abnormal) Range: 100-199 40-Mbp-49728:28 CBC W/AUTO DIFF WBC (75163) Comments: PATIENT WAS FASTINGPERFORMED BY: LabCoLourdes Medical Center of Burlington CountyXrywky3733 [facility] [id number] Immature Grans (Abs) 0.0 {x10E3/uL} (Normal) Range: [...] (Normal) Range: 3.4-10.8 :43 HgA1C , Office (98719) HgA1C , Office 6.3 % (Normal) Range: 4.6 - 7.1 :43 Blood Glucose , Office (57497) Blood Glucose , Office 105 (Normal) :55 MAGNESIUM (52659) Comments: PATIENT NOT FASTINGPERFORMED BY: LabCoLour[facility] Center of Burlington CountyWflkbt1807 [facility] [id number] Magnesium 1.6 mg/dL (Normal) Range: 1.6-2.3 :55 POTASSIUM SERUM (85018) Comments: PATIENT NOT FASTINGPERFORMED BY: [facility] Trpqlu0457 [facility] [id number]; ov 02/19 Potassium 4.8 mmol/L (Normal) Range: 3.5-5.2 :59 CBC W/Diff, Automated Comments: [facility] [address] [place], [place], [address] Absolute Lymph 2.55 {X10_3/ul} (Normal) Range: 0.83-4.51 [...] Range: 4.4-11.0 07-Dec-20178:59 Comprehensive Metabolic Profil Comments: [facility] [address] [place], [address] GAP 8 (Normal) Range: 5-15 CO2 32.0 mmol/L (Normal) Range: 21.0-32.0 CL 100 mmol/L (Normal) Range: 98-107 K 3.4 mmol/L (Abnormal) Range: 3.5-5.1 NA 140 mmol/L (Normal) Range: 136-145 T BILI 0.40 mg/dL (Normal) Range: 0.20-1.00 ALT 21 U/L (Normal) Range: 13-56 Comments: Please note revised ALT reference range fklrawcza60/28/2018. ALK P 76 U/L (Normal) Range: 45-117 [...] A.D.A. criteria.Please note revised GLUCOSE reference range isqffvwxr60/02/2018. 3-Jsm-121052:40 Microscopic Examination Comments: PATIENT WAS FASTINGPERFORMED BY: [employer] [address] [id number] BY: [employer] [facility] [place] [id number] Bacteria Few (Normal) Epithelial Cells (non renal) 0-10 {/hpf} (Normal) Range: 0 - 10 RBC None seen {/hpf} (Normal) Range: 0 - 2 WBC 0-5 {/hpf} (Normal) Range: 0 - 5 5-Jey-582951:40 VITAMIN B-12 (CYANOCOBALAMIN) Comments: PATIENT WAS FASTINGPERFORMED BY: [employer] [address] [id number] BY: [employer] [facility] [place] [id number] (34291) Vitamin B12 470 pg/mL (Normal) Range: 232-1245 6-Dgw-314219:40 CALCIFIDIOL (28344) VIT D Comments: PATIENT WAS FASTINGPERFORMED BY: [employer] [address] [id number] BY: [employer] Applicationslin[address] [facility] [id number] 25 Vitamin D, 25-Hydroxy 36.1 ng/mL (Normal) Range: 30.0-100.0 Comments: Vitamin D deficiency has been defined by the [place] ofMedicine and an Endocrine Society practice guideline as alevel of serum 25-OH vitamin D less than 20 ng/mL (1,2).The Endocrine Society went on to further define vitamin Dinsufficiency as a level between 21 and 29 ng/mL (2).1. IOM ([place] of Medicine). 2010. Dietary reference intakes for calcium and D. [place]: The National Academies Press.2. Delma MF, Mckenna ABDALLA, Dane MACKENZIE, et al. Evaluation, treatment, and prevention of vitamin D deficiency: an Endocrine Society clinical practice guideline. JCEM. 2010; 96(7):1911-30. 9-Rbc-844582:40 LIPOPROTEIN, BLD, BY NMR Comments: PATIENT WAS FASTINGPERFORMED BY: BN [facility] Fpfusytwrt8135 [facility] [id number] BY: CB [facility] Vkgijp6232 [facility] [id number] (62432) LP-IR Score 80 (Abnormal) Comments: INSULIN RESISTANCE MARKER <--Insulin Sensitive Insulin Resistant--> Percentile in Reference PopulationInsulin Resistance ScoreLP-IR Score Low 25th 50th 75th High <27 27 45 63 >63LP-IR Score is inaccurate if patient is non-fasting. .The LP-IR score is a laboratory developed i [facility] that has beenassociated with insulin resistance [...] were developed and their performance characteristicsdetermined by 66. com. These assays have not been cleared by [...] 1600 - 2000 Very High > 2000 4-Odn-918523:40 TSH (58780) Comments: PATIENT WAS FASTINGPERFORMED BY: [employer] [place] [address] [id number] BY: [employer] Snjkbj7091 [facility] [id number] TSH 1.780 {uIU/mL} (Normal) Range: 0.450-4.500 5-Zcm-100171:40 URINALYSIS, W/ MICRO Comments: PATIENT WAS FASTINGPERFORMED BY: [employer] [id number] BY: [employer]6370 [facility] [id number] (67913) Microscopic Examination See below: (Normal) Comments: Microscopic was indicated and was performed. Microscopic Examination MICRON (Normal) Comments: Microscopic follows if indicated. Nitrite, Urine Negative (Normal) Urobilinogen,Semi-Qn 0.2 mg/dL (Normal) Range: 0.2-1.0 Bilirubin Negative (Normal) Occult Blood Negative (Normal) Ketones Negative (Normal) Glucose Negative (Normal) Protein Negative (Normal) WBC Esterase Negative (Normal) Appearance Clear (Normal) Urine-Color Yellow (Normal) pH 7.5 (Normal) Range: 5.0-7.5 Specific Shafter 1.016 (Normal) Range: 1.005-1.030 2-Lbl-522703:40 MICROALBUMIN: CREATININE Comments: PATIENT WAS FASTINGPERFORMED BY: [employer] [id number] BY: PrevacusSean [place]ille 4568670 [facility] [id number] RATIO (72325) AND (92290) Alb/Creat Ratio 8.6 {mg/g_creat} (Normal) Range: 0.0-30.0 Albumin, Urine 4.7 ug/mL (Normal) Creatinine, Urine 54.7 mg/dL (Normal) 9-Pgf-977699:40 METABOLIC PANEL, Comments: PATIENT WAS FASTINGPERFORMED BY: [employer] [id number] BY: PrevacusLourdes Medical Center of Burlington CountyPirrum3422 [facility] [id number] COMPREHENSIVE (99976) ALT (SGPT) 17 [iU]/L (Normal) Range: 0-32 [...] 8-27 Glucose 99 mg/dL (Normal) Range: 65-99 6-Pbl-744804:40 CBC W/AUTO DIFF WBC Comments: PATIENT WAS FASTINGPERFORMED BY: BN [facility] Uxdvvqlfxl4243 [facility] [id number] BY: CB [facility] Nercpm2694 [facility] [id number]; ov tomrrow 12/07 (28927) Immature Grans (Abs) 0.0 {x10E3/uL} (Normal) Range: [...] (Normal) Range: 3.4-10.8 :26 HgA1C , Office (79675) HgA1C , Office 6.7 % (Normal) Range: 4.6 - 7.1 :26 Blood Glucose , Office (64171) Blood Glucose , Office 141 (Normal) 9-Key-842669:10 CBC W/Diff, Automated Comments: [facility] [address] [place], [address] Absolute Lymph 2.70 {X10_3/ul} (Normal) Range: 0.83-4.51 [...] 4.2-5.4 WBC 7.1 K/mm3 (Normal) Range: 4.4-11.0 4-Kja-126892:10 Comprehensive Metabolic Profil Comments: [facility] [address] [place], [place], [address] GAP 10 (Normal) Range: 5-15 CO2 28.0 mmol/L (Normal) Range: 21.0-32.0 CL 100 mmol/L (Normal) Range: 98-107 K 3.8 mmol/L (Normal) Range: 3.5-5.1 NA 138 mmol/L (Normal) Range: 136-145 T BILI 0.40 mg/dL (Normal) Range: 0.20-1.00 ALT 16 U/L (Normal) Range: 13-56 Comments: Please note revised ALT reference range jhtiqwlfi76/28/2018. ALK P 81 U/L (Normal) Range: 45-117 [...] 126 mg/dLsuggests DIABETES MELLITUS per A.D.A. criteria. 1-Fow-962178:10 CRP Comments: [facility] [address] [place], [place], [id number] C-REACTIVE PROT 4.26 mg/L (Abnormal) Range: 0.0-3.0 Comments: C-Reactive Protein (CRP) provides useful information for thediagnosis, therapy and monitoring of inflammatory processesand associated diseases. For the evaluation of Relative Riskfor Cardiovascular Dise ase, a High Sensitivity CRP (HSCRP)should be ordered. 9-Afy-223886:10 Erythrocyte Sed Rate Comments: [facility] [address] [place], [address] SED RATE 7 mm/h (Normal) Range: 0-30 07-Sep-20178:49 Rapid Flu (77093 x 2) Influenza A Ag Positive (Normal) Comments: A, no flu shot 1-Kzb-778635:31 Rapid Strep Test, Office (15869) Rapid Strep Test, Office Negative (Normal) :51 THROAT CULTURE (52055) Comments: PATIENT NOT FASTINGPERFORMED BY: [employer] [facility] [id number] Information: SRC: Result 1 RRF (Normal) Comments: Routine respiratory vicente Upper Respiratory Final report Culture (Normal) Lipase, Serum 11 U/L (Abnormal) Comments: PATIENT NOT FASTINGPERFORMED BY: [employer]6[address] [facility] [id number] :30 Range: 14-85 Written Authorization WAR (Normal) Comments: PATIENT NOT FASTINGPERFORMED BY: [employer]6370 [facility] [id number] :30 Comments: Written Authorization Received.Authorization received from original requistion [id number] by Ann Hartley :30 METABOLIC PANEL, COMPREHENSIVE Comments: stat; PATIENT NOT FASTINGPERFORMED BY: [employer] Bbfcot8141 [facility] [id number] (29514) ALT (SGPT) 5 [iU]/L (Normal) Range: 0-32 [...] Glucose, Serum 99 mg/dL (Normal) Range: 65-99 6-Ayd-817284:30 CBC W/AUTO DIFF WBC (56765) Comments: stat; PATIENT NOT FASTINGPERFORMED BY: [facility] Szwqml3078 [facility] [id number] Immature Grans (Abs) 0.0 {x10E3/uL} (Normal) Range: [...] 3.77-5.28 WBC 7.3 {x10E3/uL} (Normal) Range: 3.4-10.8 1-Rhi-755900:31 Rapid Flu (60469 x 2) Influenza A Ag Negative (Normal) 69-Gyn-602582:28 HgA1C , Office (98944) HgA1C , Office 6.3 % (Normal) Range: 4.6 - 7.1 19-Csc-558526:28 Blood Glucose , Office (38340) Blood Glucose , Office 133 (Normal) 62-Ebv-974642:27 VITAMIN B-12 (CYANOCOBALAMIN) Comments: PATIENT NOT FASTINGPERFORMED BY: [employer]bright Doyle [facility] HospitalSea[facility] InsuranceFirstHealth [id number] (46596) Vitamin B12 258 pg/mL (Normal) Range: 211-946 60-Xbh-027141:27 MAGNESIUM (91745) Comments: PATIENT NOT FASTINGPERFORMED BY: [employer] Connectbright [address] [facility] HospitalSea[facility] InsuranceFirstHealth [id number] Magnesium, Serum 1.6 mg/dL (Normal) Range: 1.6-2.3 76-Aqv-004975:27 Metabolic Panel, Basic Comments: PATIENT NOT FASTINGPERFORMED BY: [facility] [id number] ([id number]) Calcium, Serum 9.3 mg/dL (Normal) Range: 8.7-10.3 [...] Glucose, Serum 138 mg/dL (Abnormal) Range: 65-99 09-Hsm-345052:50 Urinalysis, Complete Comments: How was Urine Obtained? 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 [place], [place], [phone] MUCUS, URINE 0 SEEN {/hpf} (Normal) BACTERIA [...] Yellow (Normal) :15 CBC W/Diff, Automated Comments: [facility] Ekniupwqjx5141 [facility] [address]. [place], [place], [address] Absolute Lymph 1.41 {X10_3/ul} (Normal) Range: 0.83-4.51 [...] 4.2-5.4 WBC 7.7 K/mm3 (Normal) Range: 4.4-11.0 74-Zrp-926122:15 Comprehensive Metabolic Profil Comments: [facility] Koqcvzjusb[address] [place], [place], [address] GAP 6 (Normal) Range: 5-15 CO2 33.0 [...] 7-18 GLU 101 mg/dL (Normal) Range: 70-110 04-Dhx-190927:09 CBC W/Diff, Automated Comments: [facility] Qfvjpnjxpt35[address] [place], [address] ; another doc Absolute Lymph 1.90 {X10_3/ul} [...] 4.2-5.4 WBC 6.6 K/mm3 (Normal) Range: 4.4-11.0 20-Ydk-811005:09 Comprehensive Metabolic Profil Comments: [facility] Brwamjlftv50[address] [place], [place], [address] GAP 10 (Normal) Range: 5-15 CO2 25.0 [...] 126 mg/dLsuggests DIABETES MELLITUS per A.D.A. criteria. 42-Qkq-503514:09 Lipase Comments: [facility] Iinlgzztlw45[address] [place], [address] LIPASE 42 U/L (Abnormal) Range: 73-393 7-Ldn-506521:19 Metabolic Panel, Comprehensive Comments: PATIENT NOT FASTINGPERFORMED BY: [facility] Bktngo8422 [facility] [id number] ([id number]) ALT (SGPT) 11 [iU]/L (Normal) Range: 0-32 [...] Glucose, Serum 108 mg/dL (Abnormal) Range: 65-99 2-Jxt-126080:19 HGB A1C (52687) Comments: PATIENT NOT FASTINGPERFORMED BY: [facility]6370 [facility] [id number] Hemoglobin A1c 5.9 % (Abnormal) Range: 4.8-5.6 Comments: . Pre-diabetes: 5.7 - 6.4 Diabetes: >6.4 Glycemic control for adults with diabetes: <7.0 :19 MAGNESIUM (16810) Comments: PATIENT NOT FASTINGPERFORMED BY: [place] 1807970 [facility] [id number] Magnesium, Serum 1.7 mg/dL (Normal) Range: 1.6-2.3 :19 CBC, Platelets & Auto Diff Comments: PATIENT NOT FASTINGPERFORMED BY: [facility]6370 [facility] [id number] ([id number]) Immature Grans (Abs) 0.0 {x10E3/uL} (Normal) Range: [...] 3.77-5.28 WBC 9.5 {x10E3/uL} (Normal) Range: 3.4-10.8 60-Wwc-796006:41 Comprehensive Metabolic Profil Comments: REDRAW. PREVIOUS SPECIMEN REJECTED DUE TOHEMOLYSIS. 04/28/17 [address] Rbibfymjpy[address] [place], [place], [phone] GAP 6 (Normal) Range: 5-15 CO2 25.0 [...] 126 mg/dLsuggests DIABETES MELLITUS per A.D.A. criteria. 92-Pts-760227:05 Urinalysis, Complete Comments: Order Date: 04/28/17Has pt arrived? YHow was Urine Obtained? [facility] [address]joliizapu[address] [place], [place], [phone] AMORPHOUS 1+ (Normal) MUCUS, URINE 0 SEEN [...] CLARITY Sl. Cloudy (Normal) COLOR Yellow (Normal) 44-Lty-355668:00 CBC W/Diff, Automated Comments: [facility] Ypksanjnic[address] [place], [place], [address] Absolute Lymph 1.58 {X10_3/ul} (Normal) Range: 0.83-4.51 [...] 4.2-5.4 WBC 25.0 K/mm3 (Abnormal) Range: 4.4-11.0 38-Clx-524852:00 Lactic Acid Comments: Yes/No query for Sepsis Lactate Rule [facility] [address]aker[address] [place], [address] LACTIC ACID 1.6 mmol/L (Normal) Range: 0.4-2.0 66-Fzh-879351:00 Partial Thromboplast Time Comments: [facility] [address]hxesh[address] [place], [address] PTT 22.4 s (Abnormal) Range: 24.1-36.2 54-Lzm-502653:00 Prothrombin Time w/INR Comments: [facility] [address]br[address] [place], [address] INR 1.0 (Normal) PROTIME 12.8 s (Normal) Range: 11.7-14.9 88-Rlz-10065:50 Miscellaneous Lab Procedure Comments: Comments: [id number]; URINE TOX; RUN LOWEST TEST IN LABCORPTest(s) Ordered: [id number]; URINE TOX; RUN LOWEST TEST IN [facility] Slcpugcnul5054 [address] [place], [phone] [facility] Comments: [id number] 6+OXYCODONE-BUND (ng/mL)DRUG RESULT SCREEN CUTOFF____ Amphetamines,Urine Negat LAB (Normal) ananth ng/mL 1000Amphetamine test includes Amphetamine and Methamphetamine.Barbiturates Negative ng/mL 200Benzodiazepines Negative ng/mL 200Cannabinoid TEST Negative ng/mL 20Cocaine (Metab) Negative ng/mL 300Opiates Positive ng/mL 300 Opiates test includes Codeine, Morphine, Hydromorphone, Malone codone.Please Note:Confirmation performed by Mass SpectrometryCodeine Negative 300Morphine Positive Morphine Confirm >3000 ng/mL 300Hydromor phone Negative 300Hydrocodone Negative 300Oxycodone/Oxymorphone,Urine Negative ng/mL 300 Test includes Oxydodone and Oxymorphone. TESTING PERFORMED AT [facility]. ORIGINAL REPORT ON FILE IN LAB CONTAINS ADDITIONAL TEST SITE INFORMATION. :50 Urine Drug Screen (VISTA) Comments: Comments: [id number]; URINE TOX; RUN LOWEST TEST IN LABCOList of Drugs Taken or Suspected? [facility] Rmvrfalyhr1325 [address] [place], [phone] THC NEGATIVE (Normal) PCP NEGATIVE (Normal) OPIATES [...] TESTING MUST BE ORDERED SEPARATELY. USE TESTMNEMONIC: [facility] :00 Basic Metabolic Profile (BMP) Comments: 'TROP' Serial specimen #1, #2, #3, or #4: 1[facility] [address]yvsqubryt[address] [place], [place], [address] GAP 10 (Normal) Range: 5-15 CO2 28.0 [...] A.D.A. criteria. :00 CBC W/Diff, Automated Comments: [facility] Ofpujjspnz0[address] [place], [address] ; another doc Absolute Lymph 1.20 {X10_3/ul} [...] 4.2-5.4 WBC 4.0 K/mm3 (Abnormal) Range: 4.4-11.0 32-Ins-54096:00 Lipase Comments: 'TROP' Serial specimen #1, #2, #3, or #4: [address] [place] [address] [place], [address] LIPASE 82 U/L (Normal) Range: 73-393 18-Djv-20031:00 Liver Profile Comments: 'TROP' Serial specimen #1, #2, #3, or #4: [address] [place] [address] Zhfeidjxtb24[address] [place], [address] D BILI 0.12 mg/dL (Normal) Range: 0.00-0.30 T BILI 0.50 mg/dL (Normal) Range: 0.20-1.00 ALT 13 U/L (Normal) Range: 12-78 ALK P 58 U/L (Normal) Range: 45-117 AST 6 U/L (Abnormal) Range: 15-37 GLOB 3.4 g/dL (Normal) Range: 2.3-3.5 ALB 3.7 g/dL (Normal) Range: 3.4-5.0 T PROT 7.1 g/dL (Normal) Range: 6.4-8.2 20-Udb-62278:00 Troponin-I Comments: 'TROP' Serial specimen #1, #2, #3, or #4: 1[facility] H[address]nushco[address] [place], [address] TROPONIN-I < 0.02 ng/mL (Normal) Comments: TROPONIN-I EXPECTED VALUES <0.05 NEGATIVE 0.06 - 0.59 AT RISK OF [place] > OR = 0.60 SUGGEST [place] 69-Glx-803221:01 Renal Profile Comments: Order Date: 01/17/17Order Info: [id number] - RENALOrder Info: [id number] - MGOrder Date: 01/17/17Order Info: [id number] - [facility] Wvhroapldk5[address] [place], [phone] CO2 31.0 mmol/L (Normal) Range: 21.0-32.0 CL [...] 7-18 GLU 102 mg/dL (Normal) Range: 70-110 18-Hui-254440:01 MAGNESIUM (32528) Comments: Order Date: 01/17/17Order Info: [id number]- [id number] - RENALOrder Info: [id number] - MGOrder Date: 01/17/17Order Info: [id number] - [facility] [address]awjn[address] [place], [phone] MG 1.5 mg/dL (Abnormal) Range: 1.8-2.4 Comments: Moderate Hemolysis, Result may be falsely increased. 33-Qpu-174499:25 CBC W/Diff, Automated Comments: [facility] [address] [place], [address] Absolute Lymph 1.62 {X10_3/ul} (Normal) Range: 0.83-4.51 [...] 4.2-5.4 WBC 10.3 K/mm3 (Normal) Range: 4.4-11.0 00-Diy-499059:25 Comprehensive Metabolic Profil Comments: 'TROP' Serial specimen #1, #2, #3, or #4: [address] [place] [address] [address]jxirvwpgc3868 [address] [place], [place], [address] GAP 10 (Normal) Range: 5-15 CO2 29.0 [...] <126 mg/dLsuggests IMPAIRED HOMEOSTASIS per A.D.A. criteria. 60-Woh-666588:25 Lipase Comments: 'TROP' Serial specimen #1, #2, #3, or #4: [address] [place] [address] [address]uf[address]ij[address] [place], [place], [address] LIPASE 52 U/L (Abnormal) Range: 73-393 11-Nwm-902153:25 Partial Thromboplast Time Comments: [facility] Dqwvqrokwv35[address] [place], [place], [address] PTT 32.0 s (Normal) Range: 24.1-36.2 84-Ipi-035945:25 Prothrombin Time w/INR Comments: [facility] Nvghxnyhdk68[address] [place], [place], [address] INR 1.0 (Normal) PROTIME 13.1 s (Normal) Range: 11.7-14.9 80-Yje-332792:25 Troponin-I Comments: 'TROP' Serial specimen #1, #2, #3, or #4: [address] [place] [address] Lxjkigahvs9[address] [place], [place], [address] TROPONIN-I 0.93 ng/mL (Abnormal) Comments: Critical Result(s) Called INDRA Tyson at: 12:03:5604 by: JAYDA CRAIG TROPONIN-I EXPECTED VALUES <0.05 NEGATIVE 0.06 - 0.59 AT RISK OF [place] > OR = 0.60 SUGGEST [place] 23-Mnz-457846:40 Urinalysis, Complete Comments: How was Urine Obtained? 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 [place], [phone] MUCUS, URINE 0 SEEN {/hpf} (Normal) BACTERIA [...] CLARITY Sl. Cloudy (Normal) COLOR Yellow (Normal) 11-Lvf-791192:09 CBC W/Diff, Automated Comments: [facility] Immqgntrxw[address] [place], [address] Absolute Lymph 1.33 {X10_3/ul} (Normal) Range: 0.83-4.51 [...] 4.2-5.4 WBC 5.7 K/mm3 (Normal) Range: 4.4-11.0 59-Rzo-318246:09 Comprehensive Metabolic Profil Comments: 'TROP' Serial specimen #1, #2, #3, or #4: 1[facility] Pnwbnkazvz[address] [place], [place], [address] GAP 8 (Normal) Range: 5-15 CO2 33.0 [...] <126 mg/dLsuggests IMPAIRED HOMEOSTASIS per A.D.A. criteria. 64-Jpp-202300:09 Lactic Acid Comments: [facility] Zovcsdlywl[address] [place], [address] LACTIC ACID 1.5 mmol/L (Normal) Range: 0.4-2.0 24-Pxh-562147:09 Lipase Comments: 'TROP' Serial specimen #1, #2, #3, or #4: [address] [place] [address] [address]vegkdbkht95[address] [place], [address] LIPASE 40 U/L (Abnormal) Range: 73-393 :09 Partial Thromboplast Time Comments: [facility] Xzkzcfntpw24[address] [place], [address] PTT 38.3 s (Abnormal) Range: 24.1-36.2 :09 Prothrombin Time w/INR Comments: [facility] [address] [place], [address] INR 1.3 (Normal) PROTIME 15.8 s (Abnormal) Range: 11.7-14.9 :09 Troponin-I Comments: 'TROP' Serial specimen #1, #2, #3, or #4: [address] [place] [address] Mhwuddvxqb5749 [place], [address] TROPONIN-I < 0.02 ng/mL (Normal) Comments: TROPONIN-I EXPECTED VALUES <0.05 NEGATIVE 0.06 - 0.59 AT RISK OF [place] > OR = 0.60 SUGGEST [place] 35-Phd-008544:52 Potassium Comments: [facility] [address] [place], [address] K 3.4 mmol/L (Abnormal) Range: 3.5-5.1 66-Ouw-35052:10 Basic Metabolic Profile (BMP) Comments: DR AVINA ORDERED: BMP, CBC, MRSADR.NOELLE ORDERED: [facility] Uxkosclumw27[address] [place], [address] GAP 12 (Normal) Range: 5-15 CO2 27.0 mmol/L (Normal) Range: 21.0-32.0 CL 99 mmol/L (Normal) Range: 98-107 K 2.7 mmol/L (Abnormal) Range: 3.5-5.1 Comments: Critical Result(s) Called at: 10:30:38 11/14/2016 by:Aura Ch to [facility] NA 138 mmol/L (Normal) Range: 136-145 [...] 126 mg/dLsuggests DIABETES MELLITUS per A.D.A. criteria. 41-Gxz-13841:10 CBC-Complete Blood Cnt No Diff Comments: DR AVINA ORDERED: BMP, CBC, MRSA ORDERED: ESTEBAN AVINA ORDERED: BMP, CBC, HANSADRNIGEL ORDERED: [facility] Hfxmobbfpj2819 [facility] [place], [address] MPV 10.8 fL (Normal) Range: 6.2-12.0 PLT [...] 4.2-5.4 WBC 7.1 K/mm3 (Normal) Range: 4.4-11.0 77-Bfj-44704:10 MRSA/SAID SCREEN Comments: [facility] O[address]kaieyy[address] [place], [address] ; another doc MRSA+SAID SCRN See Note (Normal) Comments: DR AVINA ORDERED: BMP, CBC, MRSA ORDERED: K MRSA/SAID SCRNS. AUREUS S. aureus NegativeMRSA MRSA Negative :09 MAGNESIUM (05230) Comments: PATIENT NOT FASTINGPERFORMED BY: [employer]6370 [facility] [id number] Magnesium, Serum 1.7 mg/dL (Normal) Range: 1.6-2.3 :09 Metabolic Panel, Basic Comments: PATIENT NOT FASTINGPERFORMED BY: miradio.fm [facility] Pjczqi7816 [facility] [id number] ([id number]) Calcium, Serum 8.7 mg/dL (Normal) Range: 8.7-10.3 [...] Glucose, Serum 97 mg/dL (Normal) Range: 65-99 79-Siu-886715:45 Urinalysis, Complete Comments: How was Urine Obtained? 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 [facility] [address]ouzopini[address] [place], [address] MUCUS, URINE RARE {/hpf} (Normal) BACTERIA RARE [...] (Normal) CLARITY Cloudy (Normal) COLOR Yellow (Normal) 40-Lpc-211881:53 CBC W/Diff, Automated Comments: [facility] Fagvvirben[address] [place], [place], [address] Absolute Lymph 1.08 {X10_3/ul} (Normal) Range: 0.83-4.51 [...] 4.2-5.4 WBC 6.1 K/mm3 (Normal) Range: 4.4-11.0 89-Abt-897754:53 Comprehensive Metabolic Profil Comments: [facility] [address]xkcpvrju56[address] [place], [address] GAP 12 (Normal) Range: 5-15 CO2 27.0 [...] per A.D.A. criteria. :53 Lactic Acid Comments: [facility] Gxnhvouzma[address] [place], [address] LACTIC ACID 2.2 mmol/L (Abnormal) Range: 0.4-2.0 :53 Partial Thromboplast Time Comments: [facility] Grouxplbwf9305 [place], [address] PTT 32.1 s (Normal) Range: 24.1-36.2 :53 Prothrombin Time w/INR Comments: [facility] Fdffawmefs7[address] [place], [address] INR 1.0 (Normal) PROTIME 13.2 s (Normal) Range: 11.7-14.9 :54 Basic Metabolic Profile (BMP) Comments: [facility] Vxjhcoanpr4[address] [place], [place], [address] GAP 10 (Normal) Range: 5-15 CO2 29.0 [...] :54 CBC-Complete Blood Cnt No Diff Comments: [facility] Ycrqfaanyd7[address] [place], [place], [address] MPV 10.1 fL (Normal) Range: 6.2-12.0 PLT [...] (Normal) Range: 4.4-11.0 :54 Hemoglobin A1c Comments: [facility] Sostbajvvm57[address] [place], [place], [address] HGB A1C 6.4 % (Abnormal) Range: 4.2-6.3 :54 Liver Profile Comments: [facility] Kzusdcpstw[address] [place], [place], [address] D BILI 0.27 mg/dL (Normal) Range: 0.00-0.30 T BILI 0.80 mg/dL (Normal) Range: 0.20-1.00 ALT 12 U/L (Normal) Range: 12-78 ALK P 82 U/L (Normal) Range: 45-117 AST 10 U/L (Abnormal) Range: 15-37 GLOB 3.5 g/dL (Normal) Range: 2.3-3.5 ALB 3.2 g/dL (Abnormal) Range: 3.4-5.0 T PROT 6.7 g/dL (Normal) Range: 6.4-8.2 :54 MRSA/SAID SCREEN Comments: [facility] [address] [place], [address] MRSA+SAID SCRN See Note (Normal) Comments: MRSA/SAID SCRNS. AUREUS S. aureus NegativeMRSA MRSA Negative :54 Partial Thromboplast Time Comments: [facility] [address] [place], [place], [address] PTT 40.7 s (Abnormal) Range: 24.1-36.2 :54 Prothrombin Time w/INR Comments: [facility] [address] [place], [address] INR 1.1 (Normal) PROTIME 14.3 s (Normal) Range: 11.7-14.9 :55 CBC W/Diff, Automated Comments: [facility] R[address]ib[address] [place], [address] Absolute Lymph 1.18 {X10_3/ul} (Normal) [...] 4.2-5.4 WBC 13.8 K/mm3 (Abnormal) Range: 4.4-11.0 78-Wvm-00425:55 Comprehensive Metabolic Profil Comments: [facility] [address]jnyq[address] [place], [address] GAP 12 (Normal) Range: 5-15 CO2 24.0 [...] DIABETES MELLITUS per A.D.A. criteria. :22 MAGNESIUM (89381) Comments: PATIENT NOT FASTINGPERFORMED BY: [facility]6370 [facility] [id number] Magnesium, Serum 1.5 mg/dL (Abnormal) Range: 1.6-2.3 :22 POTASSIUM SERUM (99999) Comments: PATIENT NOT FASTINGPERFORMED BY: [facility]6370 [facility] [id number] Potassium, Serum 4.0 mmol/L (Normal) Range: 3.5-5.2 :13 Rapid Flu (78536 x 2) Influenza A Ag negative (Normal) :42 VITAMIN B12 AND FOLATES Comments: PATIENT NOT FASTINGPERFORMED BY: [facility]6370 [facility] [id number] (23448) Folate (Folic Acid), Serum 18.3 ng/mL (Normal) Comments: A serum folate concentration of less than 3.1 ng/mL isconsidered to represent clinical deficiency. Vitamin B12 650 pg/mL (Normal) Range: 211-946 :42 TSH (68507) Comments: PATIENT NOT FASTINGPERFORMED BY: [facility]6370 [facility] [id number] TSH 1.610 {uIU/mL} (Normal) Range: 0.450-4.500 23-Mvd-947935:42 Metabolic Panel, Comprehensive Comments: PATIENT NOT FASTINGPERFORMED BY: [facility]6370 [facility] [id number] (64592) ALT (SGPT) 9 [iU]/L (Normal) Range: 0-32 [...] (Normal) Range: 65-99 :26 HgA1C , Office (13201) HgA1C , Office 6.8 % (Normal) Range: 4.6 - 7.1 :26 Blood Glucose , Office (59950) Blood Glucose , Office 110 (Normal) :10 Culture, Body Fluid Comments: [facility] Drgbcibjkd9380 [facility] [place], [address] ; Another doc CUBF See [...] Fluid RBC, WBC AND Comments: LEFT KNEELEFT KNEEWRiverside [facility] Hospital Qqalwdoccm2185 [facility] [place], [address] ; another doc Diff PATH [...] LKNEE (Normal) :30 Crystals, Body Fluid Comments: [facility] [address] [place], [address] PATH REV Reviewed (Normal) SOURCE/BF SYNOVIAL (Normal) CRYSTALS/BF SEE PATH REV (Normal) :30 Culture, Body Fluid Comments: [facility] [address] [place], [address] CUBF See Note (Normal) Comments: List Antibiotics Last 48 Hours? UNKList Antibiotics to be Started? UNKComments: LEFT KNEEGram StainCentrifuged Specimen? Culture performed on centrifuged specimen Gram Stain 2+ Red Blood Donya ls No White Blood Cells No organisms seen Body Fluid CultNO GROWTH IN 14 DAYS Cult, AnaerobicNo growth in 5 days. :48 CBC W/Diff, Automated Comments: [facility] [address] [place], [address] Absolute Lymph 2.23 {X10_3/ul} (Normal) [...] 4.2-5.4 WBC 7.0 K/mm3 (Normal) Range: 4.4-11.0 1-Rzj-198961:48 Comprehensive Metabolic Profil Comments: [facility] Dathttiree[address], [place], [address] GAP 10 (Normal) Range: 5-15 CO2 29.0 [...] 7-18 GLU 99 mg/dL (Normal) Range: 70-110 87-Mzp-11531:32 Comprehensive Metabolic Profil Comments: [facility] Lodocnxrmv19[address] [place], [address] GAP 8 (Normal) Range: 5-15 CO2 31.0 [...] <126 mg/dLsuggests IMPAIRED HOMEOSTASIS per A.D.A. criteria. 15-Zgi-49945:32 Culture, Urine Comments: [facility] Dvyhjnwhir8847 [facility] [address] [place], [place], [address] CUUR See Note (Normal) Comments: Urine CultureORGANISM [...] $ <=20 S(NF) indicates non-formulary drug at [facility]. Approval by Infectious Disease Specialist required before non- formulary drugs may be ordered and/or dispensed. 37-Yxj-946095:08 Urinalysis, Complete Comments: How was Urine Obtained? CLEAN [facility] Glvbownlcr7054 [facility] [address]. [place], [place], [address] MUCUS, URINE 0 SEEN {/hpf} (Normal) BACTERIA [...] (Normal) COLOR Yellow (Normal) :56 POTASSIUM SERUM (63981) Comments: PATIENT NOT FASTINGPERFORMED BY: [facility]usLour[facility] Bur[facility] CountyQwlwui6402 [facility] [id number] Potassium, Serum 4.4 mmol/L (Normal) Range: 3.5-5.2 :56 MAGNESIUM (52746) Comments: PATIENT NOT FASTINGPERFORMED BY: [facility]6370 [facility] [id number] Magnesium, Serum 1.5 mg/dL (Abnormal) Range: 1.6-2.3 :29 CBC WITH MANUAL DIFF Comments: PATIENT WAS FASTINGPERFORMED BY: PrevacusLourdes [facility] of Burlington CountyPkorjf7843 [facility] [id number] Information: [id number], [id number] (71031) Immature Grans (Abs) 0.0 {x10E3/uL} (Normal) Range: [...] 3.77-5.28 WBC 5.8 {x10E3/uL} (Normal) Range: 3.4-10.8 9-Wnm-136649:15 CBC, Platelets & Auto Diff Comments: PATIENT NOT FASTINGPERFORMED BY: [facility] Znhnzw3995 [facility] [id number] (92032) Immature Grans (Abs) 0.0 {x10E3/uL} (Normal) Range: [...] 3.77-5.28 WBC 14.0 {x10E3/uL} (Abnormal) Range: 3.4-10.8 6-Bft-129608:15 Metabolic Panel, Comprehensive Comments: PATIENT NOT FASTINGPERFORMED BY: PrevacusLourdes Medical Center of Burlington CountyVwfcuh2965 [facility] [id number] (37392) ALT (SGPT) 14 [iU]/L (Normal) Range: 0-32 [...] Glucose, Serum 98 mg/dL (Normal) Range: 65-99 26-Dpn-995793:28 Metabolic Panel, Comments: PATIENT WAS FASTINGPERFORMED BY: PrevacusLourdes [facility] Center of Burlington CountyJffstx6472 [facility] [id number] Information: [id number] Comprehensive (09290) ALT (SGPT) 13 [iU]/L (Normal) Range: 0-32 [...] Glucose, Serum 110 mg/dL (Abnormal) Range: 65-99 9-Kxn-456667:54 Urinalysis, Office (33784) UA - LEUKOCYTE ESTERASE Trace (Normal) UA - NITRITE Negative (Normal) URINE UROBILINGN JEWELS TIMED Normal mg/dL (Normal) UA - PROTEIN Negative mg/dL (Normal) UA - PH 6 (Abnormal) UA - BLOOD Negative (Normal) UA - SPECIFIC GRAVITY 1.015 (Normal) UA - KETONES Moderate mg/dL (Normal) UA - BILIRUBIN Negative (Normal) UA - GLUCOSE Negative (Normal) :21 Basic Metabolic Profile (BMP) Comments: [facility] [id number] [place], [address] GAP 9 (Normal) Range: 5-15 [...] 200 mg/dLsuggests DIABETES MELLITUS per A.D.A. criteria. 25-Hsm-[id number]:21 CBC W/Diff, Automated Comments: [facility] [id number] [place], [address] Absolute Lymph 3.53 {X10_3/ul} (Normal) [...] 4.2-5.4 WBC 13.8 K/mm3 (Abnormal) Range: 4.4-11.0 01-Uhn-[id number]:21 Urinalysis, Complete Comments: Order Date: 04/25/16How was Urine Obtained? [facility] [id number] [facility] [place], [address] MUCUS, URINE 0 SEEN {/hpf} [...] (Normal) CLARITY Cloudy (Normal) COLOR Yellow (Normal) 09-Dpb-997646:20 Lactic Acid Comments: [facility] [id number] [facility] [place], [address] LACTIC ACID 4.8 mmol/L (Abnormal) Range: 0.4-2.0 Comments: Critical Result(s) Called at: 19:26:18 04/25/2016 by:Tiffany Oliva RN :32 CBC W/Diff, Automated Comments: [facility] [id number] [place], [place], [id number] Absolute Lymph 1.94 {X10_3/ul} (Normal) Range: 0.83-4.51 [...] Range: 4.4-11.0 :32 Comprehensive Metabolic Profil Comments: [facility] [id number] [place], [address] GAP 9 (Normal) Range: 5-15 [...] 126 mg/dLsuggests DIABETES MELLITUS per A.D.A. criteria. 26-Ufe-284720:01 CBC W/Diff, Automated Comments: [facility] [id number] [place], [place], [id number] Absolute Lymph 2.12 {X10_3/ul} (Normal) Range: 0.83-4.51 [...] K/mm3 (Normal) Range: 4.4-11.0 :01 CRP Comments: [facility] [address] [place], [address] C-REACTIVE PROT < 2.90 mg/L (Normal) Range: 0.0-3.0 Comments: C-Reactive Protein (CRP) provides useful information for thediagnosis, therapy and monitoring of inflammatory processesand associated diseases. For the evaluation of Relative Riskfor Cardiovascular Dise ase, a High Sensitivity CRP (HSCRP)should be ordered. 62-Glg-085548:01 Erythrocyte Sed Rate Comments: [facility] [address] [place], [place], [id number] SED RATE 10 mm/h (Normal) Range: 0-30 91-Bst-601811:13 CK-MB Quantitative and Index Comments: 'TROP' Serial specimen #1, #2, #3, or #4: 1'CKMB' Serial Specimen #1, #2 or #3? [facility] [address] [place], [address] CKRI 1.5 % (Abnormal) Range: 0.0-1.4 Comments: RELATIVE INDEX >1.5% IS PRESUMPTIVELY POSITIVE CPKMB 1.0 ng/mL (Normal) Range: 0.0-5.0 Comments: CK-MB and RI Interpretation MB Relative Index Non-AMI <or= 5 NA Indeterminate > 5 <or= 4 AMI > 5 > 4 CPK TOTAL 65 U/L (Normal) Range: 26-192 33-Tzv-920556:13 Myoglobin, Serum Comments: [facility] (refer to report for specific site)refer to report for address and phone number Myoglobin, Ser 42 ng/mL (Normal) Range: 25-58 Comments: Performed at: [address] [id number] Director: Edil Robertson PhD, Phone: [phone] 51-Fvz-571594:13 Troponin-I Comments: 'TROP' Serial specimen #1, #2, #3, or #4: 1'CKMB' Serial Specimen #1, #2 or #3? 1[facility] [address] [place] [address], [id number] TROPONIN-I < 0.02 ng/mL (Normal) Comments: TROPONIN-I EXPECTED VALUES <0.05 NEGATIVE 0.06 - 0.59 AT RISK OF [place] > OR = 0.60 SUGGEST [place] 43-Idc-071968:19 URINE HANSA CULTURE-JEWELS COL Comments: PATIENT NOT FASTINGPERFORMED BY: [address] [id number] Information: SRC:[facility] [id number] COUNT (68904) Antimicrobial MIHEAD (Normal) Comments: S = Susceptible; [...] mL (Abnormal) Urine Final report Culture,Comprehensive (Abnormal) 41-Tnd-287433:54 Urinalysis, Office (14089) UA - LEUKOCYTE ESTERASE Small (Normal) UA - NITRITE Positive (Normal) URINE UROBILINGN JEWELS TIMED Normal mg/dL (Normal) UA - PROTEIN Trace mg/dL (Normal) UA - PH 7 (Normal) UA - BLOOD Negative (Normal) UA - SPECIFIC GRAVITY 1.025 (Normal) UA - KETONES Small mg/dL (Normal) UA - BILIRUBIN Small (Normal) UA - GLUCOSE Negative (Normal) 69-Vmr-774640:38 Blood Glucose , Office (46189) Blood Glucose , Office 85 (Normal) :38 Basic Metabolic Profile (BMP) Comments: Is Patient Taking Vitamins or Folic Acid Supplements? [facility] [address] [place], [place], [address] GAP 9 (Normal) Range: 5-15 CO2 28.0 [...] Patient Taking Vitamins or Folic Acid Supplements? [facility] [address] [place], [place], [address] FOLATES 13.40 ng/mL (Normal) Range: 3.1-17.5 :38 Vitamin B12 723 pg/mL (Normal) Comments: [facility] [address] [place], [id number] Range: 211-911 :32 CBC W/Diff, Automated Comments: [facility] [address] [place], [address] ; ordered by Dr. Colmenares Absolute Lymph [...] Range: 4.4-11.0 :32 Comprehensive Metabolic Profil Comments: [facility] [address] [place], [place], [address] GAP 5 (Normal) Range: 5-15 CO2 31.0 [...] mg/dL (Normal) Range: 70-110 :03 LIPID PANEL (18818) Comments: PATIENT WAS FASTINGPERFORMED BY: CB [facility] Kfjtog4677 [facility] [id number] BY: BN [facility] [address] [id number] LDL/HDL Ratio 3.2 {ratio_units} (Normal) Range: 0.0-3.2 [...] 1, 25-DIHYDROXY Comments: PATIENT WAS FASTINGPERFORMED BY: Four Eyes Connectbright [facility] [id number] BY: [place]vacus[place] [id number] (48467) Calcitriol(1,25 di-OH Vit D) 51.7 pg/mL (Normal) Range: 19.9-79.3 :03 MICROALBUMIN: CREATININE Comments: PATIENT WAS FASTINGPERFORMED BY: howsimple [facility] [id number] BY: Prevacus[place] [id number] RATIO (27112) AND (14412) Microalb/Creat Ratio 35.5 {mg/g_creat} (Abnormal) Range: 0.0-30.0 Microalbumin, Urine 42.6 ug/mL (Abnormal) Range: 0.0-17.0 Creatinine, Urine 120.0 mg/dL (Normal) Range: 15.0-278.0 :03 METABOLIC PANEL, Comments: PATIENT WAS FASTINGPERFORMED BY: [facility] Cqntto3042 [facility] [id number] BY: Badger Maps[address] [id number] COMPREHENSIVE (19622) ALT (SGPT) 14 [iU]/L (Normal) Range: 0-32 [...] Glucose, Serum 137 mg/dL (Abnormal) Range: 65-99 37-Zfl-42869:03 CBC, PLATELETS & AUT DIFF Comments: PATIENT WAS FASTINGPERFORMED BY: CB [facility] Iitcuo4439 [facility] [id number] BY: BN [facility] [address] [id number] Information: [id number] (26712) Immature Grans (Abs) 0.0 {x10E3/uL} (Normal) Range: [...] (THYROID STIMULATING Comments: PATIENT WAS FASTINGPERFORMED BY: [employer] Eyes Puuywo2406 [facility] [id number] BY: Prevacus[address] [id number] HORMONE) (74256) TSH 3.840 {uIU/mL} (Normal) Range: 0.450-4.500 :03 VITAMIN B12 AND FOLATES Comments: PATIENT WAS FASTINGPERFORMED BY: Rontal Applicationslin[address] [place] [address] [id number] BY: Badger Maps[address] [id number] (36815) Folate (Folic Acid), Serum 14.3 ng/mL (Normal) Comments: A serum folate concentration of less than 3.1 ng/mL isconsidered to represent clinical deficiency. Vitamin B12 742 pg/mL (Normal) Range: 211-946 :56 HgA1C , Office (91304) HgA1C , Office 6.8 % (Normal) Range: 4.6 - 7.1 :56 Blood Glucose , Office (06146) Blood Glucose , Office 128 (Normal) :36 CBC W/Diff, Automated Comments: [facility] [address] [place], [place], [address] Absolute Lymph 2.25 {X10_3/ul} (Normal) Range: 0.83-4.51 [...] Range: 4.4-11.0 :36 Comprehensive Metabolic Profil Comments: [facility] [address] [place], [address] GAP 8 (Normal) Range: 5-15 CO2 28.0 [...] 126 mg/dLsuggests DIABETES MELLITUS per A.D.A. criteria. 7-Ose-913445:12 ANTINUCLEAR ANTIBODIES DIRECT Comments: [facility] (refer to report for specific site)refer to report for address and phone number EVERTON-DIRECT Negative (Normal) Comments: Performed at: [facility] LabCo[address] [id number] Director: Edil Robertson PhD, Phone: [phone] 7-Cqs-732314:12 CBC W/Diff, Automated Comments: [facility] [address] [place], [place], [address] Absolute Lymph 1.93 {X10_3/ul} (Normal) Range: 0.83-4.51 [...] report for address and phone number ANTI-CCP 187172 4 {units} (Normal) Range: 0-19 Comments: Negative <20 Weak positive 20 - 39 Moderate positive 40 - 59 Strong positive >59 5-Nhq-193810:12 Comprehensive Metabolic Profil Comments: [facility] [address] [place], [place], [address] GAP 6 (Normal) Range: 5-15 CO2 33.0 [...] 7-18 GLU 95 mg/dL (Normal) Range: 70-110 0-Cvd-857727:12 Hep B Surface Antibodies Comments: [facility] (refer to report for specific site)refer to report for address and phone number Hep B Loi AB Reactive (Normal) Comments: Non Reactive: Inconsistent with immunity, less than 10 mIU/mL Reactive: Consistent with immunity, greater than 9.9 mIU/mL 5-Mxr-051724:12 Hepatitis B Surface Ag Comments: [facility] (refer to report for specific site)refer to report for address and phone number HB SURF AG Negative (Normal) 5-Yjz-281624:12 Hepatitis B Core AB IgM Comments: [facility] (refer to report for specific site)refer to report for address and phone number HB CORE AL07007 Negative (Normal) Comments: Performed at: - [facility] [id number] Director: Edil Robertson PhD, Phone: [phone] at: 2Q - [facility] EOD36[address] [place], [place] [id number] Director: Jared Rodriguez PhD, Phone: [phone] at: - [facility] [id number] Director: Dylan Matthews MD, Phone: [phone] 7-Vpl-388878:12 Hepatitis C Antibodies Comments: [facility] (refer to report for specific site)refer to [...] a more specific supplemental or PCR testing. [facility] offers HCV Ab w/Reflex to Verification test #[id number]. :12 HLA B27 Negative (Normal) Comments: [facility] (refer to report for specific site)refer to report for address and phone number Comments: HLA-B*27 NegativeHLA allele interpretation for all loci based on IMGT/HLAdatabase version 3.15A [facility] HospitalIA ID Number [id number] test was performed using PCR (Polymerase ChainReaction)/SSOP (Sequence Specific Oligonucleotide Probes)technique. SBT (Sequence Based Typing) and/or SSP(Sequence Specific Primers) may be used as supplementalmethods when necessary. Please contact HLA CustomerService at [phone] if you have any questions. Director of HLA Laboratory Dr Jared Rodriguez, PhD :12 Rheumatoid Factor Comments: [facility] [address] [place], [address] RHEUMATOID FAC < 10.0 {IU/mL} (Normal) 0-Prt-168791:12 Vitamin D,25 Hydroxy Comments: [facility] [address] [place], [address] Vitamin D 25-OH 50.9 ng/mL (Normal) Comments: Vitamin D 25(OH) Status Range Deficiency <20 ng/mL (50nmol/L) Insuffciency 20 - 30 ng/mL (50 - 75 nmol/L) Sufficiency 30 - 100 ng/mL (75 - 250 nmol/L) Toxicity >100 ng/mL (>250 nmol/L) 39-Ptw-76882:37 LIPID PANEL (62559) Comments: PATIENT WAS FASTINGPERFORMED BY: [facility] [id number] LDL/HDL Ratio 2.8 {ratio_units} (Normal) Range: 0.0-3.2 [...] - 169 >19 years 100 - 199 29-Xsl-42020:37 CBC, PLATELETS & AUT DIFF Comments: PATIENT WAS FASTINGPERFORMED BY: miradio.fm [facility] Llkbis5888 [facility] [id number] Information: [id number] (97506) Immature Grans (Abs) 0.0 {x10E3/uL} (Normal) Range: [...] B-12 (CYANOCOBALAMIN) Comments: PATIENT WAS FASTINGPERFORMED BY: miradio.fm [facility] Zxfmtg0703 [place] [id number] (28496) Vitamin B12 871 pg/mL (Normal) Range: 211-946 :37 Vitamin D Hydroxy (02567) Comments: PATIENT WAS FASTINGPERFORMED BY: [facility] Shrjlg[address] SafetyDublin [place] [id number] Vitamin D, 25-Hydroxy 69.6 ng/mL (Normal) Range: 30.0-100.0 Comments: Vitamin D deficiency has been defined by the [place] ofMedicine and an Endocrine Society practice guideline as alevel of serum 25-OH vitamin D less than 20 ng/mL (1,2).The Endocrine Society went on to further define vitamin Dinsufficiency as a level between 21 and 29 ng/mL (2).1. IOM ([place] of Medicine). 2010. Dietary reference intakes for calcium and D. [place]: The National Academies Press.2. Delma MF, Mckenna ABDALLA, Dane MACKENZIE, et al. Evaluation, treatment, and prevention of vitamin D deficiency: an Endocrine Society clinical practice guideline. JCEM. 2010; 96(7):1911-30. :37 METABOLIC PANEL, COMPREHENSIVE Comments: PATIENT WAS FASTINGPERFORMED BY: [facility] Qvpnzl6491 [facility] [id number]; apt. 07-01-15 (13333) ALT (SGPT) 10 [iU]/L (Normal) Range: 0-32 [...] (Abnormal) Range: 65-99 :02 HgA1C , Office (88638) HgA1C , Office 7.1 % (Normal) Range: 4.6 - 7.1 52-Xfk-775487:24 EBV Panel (29272) Comments: PATIENT NOT FASTINGPERFORMED BY: Bad[place] MapsHannah [place] [address]8970 [facility] [id number] Interpretation: SPRCS (Normal) Comments: EBV Interpretation Chart [...] <36.0 Equivocal 36.0 - 43.9 Positive >43.9 13-Qew-470888:24 CBC W/AUTO DIFF WBC Comments: PATIENT NOT FASTINGPERFORMED BY: [facility]6370 [facility] [id number] Information: [id number] (84400) Immature Grans (Abs) 0.0 {x10E3/uL} (Normal) Range: [...] 3.77-5.28 WBC 6.7 {x10E3/uL} (Normal) Range: 3.4-10.8 87-Uzn-664038:37 HANSA CULTURE-OTHER (49097) Comments: PATIENT NOT FASTINGPERFORMED BY: Prevacus Zvcick4579 [facility] [id number] Information: SRC:THRT [id number] Result 1 RRF (Normal) Comments: Routine respiratory vicente Upper Respiratory Culture Final report (Normal) 56-Ere-903064:30 Rapid Strep Test, Office (54533) Rapid Strep Test, Office Negative (Normal) 06-Feb-20159:15 CBC, Platelet, No Differential Comments: PATIENT WAS FASTINGPERFORMED BY: PrevacusCHRISTUS St. [facility] Medical CenterYxrkqc2530 [facility] [id number] Platelets 245 {x10E3/uL} (Normal) Range: 150-379 RDW [...] Panel (14) Comments: PATIENT WAS FASTINGPERFORMED BY: [facility]Co[facility] CountyZfzkyx8609 [facility] [id number] Information: [id number] ALT (SGPT) 8 [iU]/L (Normal) Range: 0-32 [...] With LDL/HDL Comments: PATIENT WAS FASTINGPERFORMED BY: Bad[place] MapsH[place] 9188970 [facility] [id number] Ratio LDL/HDL Ratio 3.7 {ratio_units} Range: 0.0-3.2 [...] pg/mL (Normal) Comments: PATIENT WAS FASTINGPERFORMED BY: [facility]Up [facility]6370 [facility] [id number] :15 Range: 211-946 Vitamin D, 25-Hydroxy 56.4 ng/mL (Normal) Comments: PATIENT WAS FASTINGPERFORMED BY: [facility]6370 [facility] [id number] :15 Range: 30.0-100.0 Comments: Vitamin D deficiency has been defined by the [place] ofMedicine and an Endocrine Society practice guideline as alevel of serum 25-OH vitamin D less than 20 ng/mL (1,2).The Endocrine Society went on to further define vitamin Dinsufficiency as a level between 21 and 29 ng/mL (2).1. IOM ([place] of Medicine). 2010. Dietary reference intakes for calcium and D. [place]: The National Academies Press.2. Mckenna Christie, Dane MACKENZIE, et al. Evaluation, treatment, and prevention of vitamin D deficiency: an Endocrine Society clinical practice guideline. JCEM. 2010; 96(7):1911-30. :33 HgA1C , Office (09683) HgA1C , Office 6.4 % (Normal) Range: 4.6 - 7.1 :27 Potassium Comments: Test performed at:[facility] [address] [place] [address] K 3.5 mmol/L (Normal) Range: 3.5-5.1 :59 Vitamin D Hydroxy (02756) Comments: PATIENT NOT FASTINGPERFORMED BY: GotVoice70 [address] [id number] Vitamin D, 25-Hydroxy 40.6 ng/mL (Normal) Range: 30.0-100.0 Comments: Vitamin D deficiency has been defined by the [place] of[place]icine and an Endocrine Society practice guideline as alevel of serum 25-OH vitamin D less than 20 ng/mL (1,2).The Endocrine Society went on to further define vitamin Dinsufficiency as a level between 21 and 29 ng/mL (2).1. IOM ([place] of Medicine). 2010. Dietary reference intakes for calcium and D. [place]: The National Academies Press.2. Delma RIVERA, Mckenna ABDALLA, Dane MACKENZIE, et al. Evaluation, treatment, and prevention of vitamin D deficiency: an Endocrine Society clinical practice guideline. JCEM. 2010; 96(7):1911-30. :59 T4, FREE (THYROXINE) Comments: PATIENT NOT FASTINGPERFORMED BY: [facility] Ymqhww3378 [place] [id number] Information: [id number] (95759) T4,Free(Direct) 1.22 ng/dL (Normal) Range: 0.82-1.77 :59 T3, FREE (TRIDOTHYRONINE) (44894) Comments: PATIENT NOT FASTINGPERFORMED BY: [facility]6370 [facility] [id number] Triiodothyronine,Free,Serum 3.2 pg/mL (Normal) Range: 2.0-4.4 :59 TSH (24926) Comments: PATIENT NOT FASTINGPERFORMED BY: [facility] Snzzbc6767 [facility] [id number] TSH 2.460 {uIU/mL} (Normal) Range: 0.450-4.500 :59 SED RATE ERYTHROCYTE (47450) Comments: PATIENT NOT FASTINGPERFORMED BY: [facility]6370 [facility] [id number] Sedimentation Rate-Westergren 3 mm/h (Normal) Range: 0-40 :59 C-REACTIVE PROTEIN (42192) Comments: PATIENT NOT FASTINGPERFORMED BY: [facility]6370 [facility] [id number] C-Reactive Protein, Quant 2.6 mg/L (Normal) Range: 0.0-4.9 :06 TSH (92238) Comments: PATIENT NOT FASTINGPERFORMED BY: [facility]6370 [facility] [id number] TSH 1.920 {uIU/mL} (Normal) Range: 0.450-4.500 :06 CBC with auto diff Comments: PATIENT NOT FASTINGPERFORMED BY: [facility]6370 [facility] [id number] Information: [id number] (10555) Immature Grans (Abs) 0.0 {x10E3/uL} (Normal) Range: [...] 3.77-5.28 WBC 7.9 {x10E3/uL} (Normal) Range: 3.4-10.8 4-Kce-067209:06 METABOLIC PANEL, COMPREHENSIVE Comments: PATIENT NOT FASTINGPERFORMED BY: [facility]CoL[facility] Burlington CountyJxefhj7262 [facility] [id number] (08657) ALT (SGPT) 6 [iU]/L (Normal) Range: 0-32 [...] Glucose, Serum 111 mg/dL (Abnormal) Range: 65-99 2-Nhb-094227:09 URINE HANSA CULTURE (JEWELS Comments: PATIENT NOT FASTINGPERFORMED BY: LabCoLour[facility] of Burlington CountyImipxe8820 [facility] [id number] Information: SRC:[facility] [id number] COL COUNT) (10575) Result 1 CNSNSS (Abnormal) Comments: Coagulase negative [...] S Urine Final report Culture,Comprehens (Abnormal) ananth 3-Tnp-047758:54 Urinalysis, Office (36131) UA - LEUKOCYTE ESTERASE Negative (Normal) UA - NITRITE Negative (Normal) URINE UROBILINGN JEWELS TIMED Normal mg/dL (Normal) UA - PROTEIN Negative mg/dL (Normal) UA - PH 6.5 (Normal) UA - BLOOD Negative (Normal) UA - SPECIFIC GRAVITY 1.015 (Normal) UA - KETONES Negative mg/dL (Normal) UA - BILIRUBIN Negative (Normal) UA - GLUCOSE Negative (Normal) 00-Xah-583006:40 Urine Drug Screen (VISTA) Comments: Has pt arrived? YTest performed at:[facility] [address] [place] [address] THC NEGATIVE (Normal) PCP NEGATIVE [...] MUST BE ORDERED SEPARATELY. USE TESTMNEMONIC: UTCA 06-Dfd-680725:25 Acetaminophen (Tylenol) Level Comments: Test performed at:[facility] Dveerjccbm8637 [facility] [place] [address] ACETAMINOPHEN < 2.0 ug/mL (Abnormal) Range: 10.0-30.0 63-Wgg-065692:25 Basic Metabolic Profile (BMP) Comments: Test performed at:[facility] [address]hsf[address] [place] [address] GAP 8 (Normal) Range: 5-15 [...] 126 mg/dLsuggests DIABETES MELLITUS per A.D.A. criteria. 60-Qtk-474760:25 CBC W/Diff, Automated Comments: Test performed at:[facility] [address] [place] [address] Absolute Lymph 0.55 {X10_3/ul} (Abnormal) [...] 4.2-5.4 WBC 11.3 K/mm3 (Abnormal) Range: 4.4-11.0 44-Vjn-611360:25 Partial Thromboplast Time Comments: Test performed at:[facility] [address]ds[address] [place] [address] PTT 31.9 s (Normal) Range: 24.1-36.2 21-Kgd-107278:25 Prothrombin Time w/INR Comments: Test performed at:[facility] T[address]ngiztcu[address] [place] [address] INR 1.1 (Normal) PROTIME 14.0 s (Normal) Range: 11.7-14.9 :22 Basic Metabolic Profile (BMP) Comments: Test performed at:[facility] [address]ubh[address] [place] [address] GAP 8 (Normal) Range: 5-15 CO2 31.0 [...] Blood Cnt No Diff Comments: Test performed at:[facility] Ubsccuudfi[address] [place] [address] MPV 10.0 fL (Normal) Range: 6.2-12.0 [...] Blood Cnt No Diff Comments: Test performed at:[facility] Cbkmypgmrp6267 [facility] [place] [address] MPV 10.4 fL (Normal) Range: [...] Basic Metabolic Profile (BMP) Comments: Test performed at:[facility] Ixkgikbgbm2484 [facility] [place] [address] GAP 8 (Normal) Range: 5-15 [...] 126 mg/dLsuggests DIABETES MELLITUS per A.D.A. criteria. 32-Hvo-77051:52 CBC-Complete Blood Cnt No Diff Comments: Test performed at:[facility] Osuwvzgple6981 [facility] [place] [address] MPV 10.0 fL (Normal) Range: [...] 4.2-5.4 WBC 8.7 K/mm3 (Normal) Range: 4.4-11.0 92-Qfl-559265:00 Bedside Glucose Comments: Test performed at:[facility] Wliiwtxyzc8279 [place], [place] [address] BEDSIDE GLU 138 mg/dL (Abnormal) Range: 70-110 Comments: No Action RequiredMANAGEMENT OF PATIENT CARE PER NURSING PROTOCOL 16-Smm-136701:12 Bedside Glucose Comments: Test performed at:[facility] Eitwuufyss8531 [place] [address] BEDSIDE GLU 108 mg/dL (Normal) Range: 70-110 Comments: No Action RequiredMANAGEMENT OF PATIENT CARE PER NURSING PROTOCOL 24-Knn-64743:07 VITAMIN B-12 (CYANOCOBALAMIN) Comments: PATIENT WAS FASTINGPERFORMED BY: [facility] Cleuvz6508 [facility] [id number] (48231) Vitamin B12 498 pg/mL (Normal) Range: 211-946 :07 MICROALBUMIN: CREATININE RATIO Comments: PATIENT WAS FASTINGPERFORMED BY: Badger MapsUp [facility] System6370 [facility] [id number] (75003) AND (36234) Microalb/Creat Ratio 24.7 {mg/g_creat} (Normal) Range: 0.0-30.0 Microalbumin, Urine 36.2 ug/mL (Abnormal) Range: 0.0-17.0 Creatinine, Urine 146.6 mg/dL (Normal) Range: 15.0-278.0 :07 CBC W/AUTO DIFF WBC Comments: PATIENT WAS FASTINGPERFORMED BY: PrevacusLourdes Medical Center of Burlington CountyUtapwe8349 [facility] [id number] Information: [id number] (22930) Immature Grans (Abs) 0.0 {x10E3/uL} (Normal) Range: [...] 7.0 {x10E3/uL} (Normal) Range: 3.4-10.8 :07 TSH (05067) Comments: PATIENT WAS FASTINGPERFORMED BY: PrevacusLourdes Medical Center of Burlington CountyFspibd7341 [facility] [id number] TSH 4.510 {uIU/mL} (Abnormal) Range: 0.450-4.500 :07 LIPID PANEL (13770) Comments: PATIENT WAS FASTINGPERFORMED BY: LabSonoma OrthopedicsLourdes Medical Center of Burlington CountyNdyvms0993 [facility] [id number] VLDL Cholesterol Peg VLDLCH mg/dL (Normal) Range: [...] PANEL, COMPREHENSIVE Comments: PATIENT WAS FASTINGPERFORMED BY: PrevacusLourdes Medical Center of Burlington CountyFnydyy7927 [facility] [id number] (71702) ALT (SGPT) 10 [iU]/L (Normal) Range: 0-32 [...] (Abnormal) Range: 65-99 :22 HgA1C , Office (30811) HgA1C , Office 6.9 % (Normal) Range: [...] See Note (Normal) Comments: Results called on 08/07/14-591 by BRISSA ([facility]) [phone]. Comments: Copy of report sent to Infection Control Printer MS#[id number] 08/07/14 3039 [facility]. RESULTS PRINTED MS#[id number] S. AUREUS S. aureus PositiveMRSA MRSA Negative 43-Jpr-89888:34 VITAMIN B-12 (CYANOCOBALAMIN) Comments: PATIENT WAS FASTINGPERFORMED BY: [facility]6370 [facility] [id number] (98912) Vitamin B12 1631 pg/mL (Abnormal) Range: 211-946 :34 CBC W/AUTO DIFF WBC Comments: PATIENT WAS FASTINGPERFORMED BY: LabCoLourdes Medical Center of Burlington CountyIjpesv1182 [facility] [id number] Information: [id number] (61658) Immature Grans (Abs) 0.0 {x10E3/uL} (Normal) Range: [...] 3.77-5.28 WBC 4.0 {x10E3/uL} (Normal) Range: 3.4-10.8 31-Osm-53310:34 METABOLIC PANEL, COMPREHENSIVE Comments: PATIENT WAS FASTINGPERFORMED BY: [facility]6370 [facility] [id number] (69518) ALT (SGPT) 10 [iU]/L (Normal) Range: 0-32 [...] mg/dL (Abnormal) Range: 65-99 :34 LIPID PANEL ([id number]) Comments: PATIENT WAS FASTINGPERFORMED BY: [facility]Njmfij[address] [id number] LDL/HDL Ratio 3.3 {ratio_units} (Abnormal) Range: 0.0-3.2 [...] Cholesterol, Total 190 mg/dL (Normal) Range: 100-199 61-Tpo-84021:12 Microscopic Examination Comments: PATIENT WAS FASTINGPERFORMED BY: [facility] Gjmyhu[address] [facility] [id number] Bacteria None seen (Normal) Epithelial Cells (non renal) 0-10 {/hpf} (Normal) Range: 0 - 10 RBC None seen {/hpf} (Normal) Range: 0 - 2 WBC 0-5 {/hpf} (Normal) Range: 0 - 5 :12 TSH ([id number]) Comments: PATIENT WAS FASTINGPERFORMED BY: [facility]Co Byycmp8085 [facility] [id number]; non-emergent till apt this week TSH 1.560 {uIU/mL} (Normal) Range: 0.450-4.500 :12 URINALYSIS, W/ MICRO (98151) Comments: PATIENT WAS FASTINGPERFORMED BY: Bad[facility] MapsSaint [facility] Ttqosg7130 [facility] [id number] Microscopic Examination See below: (Normal) Comments: Microscopic was indicated and was performed. Microscopic Examination MICRON (Normal) Comments: Microscopic follows if indicated. Nitrite, Urine Negative (Normal) Urobilinogen,Semi-Qn 0.2 mg/dL (Normal) Range: 0.0-1.9 Bilirubin Negative (Normal) Occult Blood Negative (Normal) Ketones Negative (Normal) Glucose Negative (Normal) Protein Trace (Normal) WBC Esterase Negative (Normal) Appearance Clear (Normal) Urine-Color Yellow (Normal) pH 8.0 (Abnormal) Range: 5.0-7.5 Specific Shafter 1.014 (Normal) Range: 1.005-1.030 :12 Vitamin D Hydroxy (75737) Comments: PATIENT WAS FASTINGPERFORMED BY: [facility]Co Eqvlag8133 [facility] [id number] Vitamin D, 25-Hydroxy 42.2 ng/mL (Normal) Range: 30.0-100.0 Comments: Vitamin D deficiency has been defined by the [place] ofMedicine and an Endocrine Society practice guideline as alevel of serum 25-OH vitamin D less than 20 ng/mL (1,2).The Endocrine Society went on to further define vitamin Dinsufficiency as a level between 21 and 29 ng/mL (2).1. IOM ([place] of Medicine). 2010. Dietary reference intakes for calcium and D. [place]: The National Academies Press.2. Delma MF, Mckenna NC, Dane MACKENZIE, et al. Evaluation, treatment, and prevention of vitamin D deficiency: an Endocrine Society clinical practice guideline. JCEM. 2010; 96(7):1911-30. :12 MICROALBUMIN: CREATININE RATIO Comments: PATIENT WAS FASTINGPERFORMED BY: enrich-in Ukjsjb7032 [facility] [id number] (00098) AND (31397) Microalb/Creat Ratio 4.7 {mg/g_creat} (Normal) Range: 0.0-30.0 Creatinine, Urine 49.4 mg/dL (Normal) Range: 15.0-278.0 Microalbumin, Urine 2.3 ug/mL (Normal) Range: 0.0-17.0 :12 METABOLIC PANEL, Comments: PATIENT WAS FASTINGPERFORMED BY: Move Networks6370 [facility] [id number] Information: [id number] COMPREHENSIVE (78743) ALT (SGPT) 12 [iU]/L (Normal) Range: 0-32 [...] mg/dL (Abnormal) Range: 65-99 :12 LIPID PANEL (48537) Comments: PATIENT WAS FASTINGPERFORMED BY: Mainstream Renewable PowerMaria Parham Health [id number] LDL/HDL Ratio 2.7 {ratio_units} (Normal) Range: 0.0-3.2 [...] B-12 (CYANOCOBALAMIN) Comments: PATIENT WAS FASTINGPERFORMED BY: Mainstream Renewable PowerMaria Parham Health [id number] (65333) Vitamin B12 287 pg/mL (Normal) Range: 211-946 :34 HgA1C , Office (36282) HgA1C , Office 6.3 % (Normal) Range: 4.6 - 7.1 :55 Creatine Kinase Total (92291) Comments: PATIENT NOT FASTINGPERFORMED BY: [facility] Resy NetworkBarnes-Jewish [facility] [id number] Creatine Kinase,Total,Serum 105 U/L (Normal) Range: 24-173 :55 TSH (74426) Comments: PATIENT NOT FASTINGPERFORMED BY: [facility] Sfvlpi1726 [facility] [id number] TSH 1.590 {uIU/mL} (Normal) Range: 0.450-4.500 :55 METABOLIC PANEL, Comments: PATIENT NOT FASTINGPERFORMED BY: CLARITA [facility] Grstbs8816 V[facility] [id number] Information: [id number] COMPREHENSIVE (16530) ALT (SGPT) 13 [iU]/L (Normal) Range: 0-32 [...] (Abnormal) Range: 65-99 :33 HgA1C , Office (52607) HgA1C , Office 6.7 % (Normal) Range: 4.6 - 7.1 :46 MICROALBUMIN: CREATININE RATIO Comments: PATIENT WAS FASTINGPERFORMED BY: Prevacus Ngsllr3591 [facility] [place] [id number] (66399) AND (76160) Microalb/Creat Ratio 20.0 {mg/g_creat} (Normal) Range: 0.0-30.0 Microalbumin, Urine 21.7 ug/mL (Abnormal) Range: 0.0-17.0 Creatinine, Urine 108.5 mg/dL (Normal) Range: 15.0-278.0 :46 TSH (74891) Comments: PATIENT WAS FASTINGPERFORMED BY: [facility] Wbkkyh0789 [facility] [place] [id number] TSH 2.670 {uIU/mL} (Normal) Range: 0.450-4.500 :46 Vitamin D Hydroxy (15349) Comments: PATIENT WAS FASTINGPERFORMED BY: Pre[facility] Sjvduv6315 [facility] [place] [id number] Vitamin D, 25-Hydroxy 42.9 ng/mL (Normal) Range: 30.0-100.0 Comments: Vitamin D deficiency has been defined by the [place] of[place]icine and an Endocrine Society practice guideline as alevel of serum 25-OH vitamin D less than 20 ng/mL (1,2).The Endocrine Society went on to further define vitamin Dinsufficiency as a level between 21 and 29 ng/mL (2).1. IOM ([place] of Medicine). 2010. Dietary reference intakes for calcium and D. [place]: The National Academies Press.2. Delma MF, Mckenna NC, Loree-Werner MACKENZIE, et al. Evaluation, treatment, and prevention of vitamin D deficiency: an Endocrine Society clinical practice guideline. JCEM. 2010; 96(7):1911-30. :46 CBC, PLATELETS & AUT DIFF Comments: PATIENT WAS FASTINGPERFORMED BY: Bad[facility] MapsSaint [facility] Sijwdu4847 [facility] [id number] Information: [id number] (01645) Immature Grans (Abs) 0.0 {x10E3/uL} (Normal) Range: [...] 3.77-5.28 WBC 8.7 {x10E3/uL} (Normal) Range: 3.4-10.8 57-Wes-342629:46 VITAMIN B-12 (CYANOCOBALAMIN) Comments: PATIENT WAS FASTINGPERFORMED BY: CLARITA PrevacusLourdes Medical Center of Burlington CountyCybdap5132 [facility] [id number] (07603) Vitamin B12 382 pg/mL (Normal) Range: 211-946 30-Iuh-193085:46 METABOLIC PANEL, COMPREHENSIVE Comments: PATIENT WAS FASTINGPERFORMED BY: LabCoLourdes Medical Center of Burlington CountyJaosky6422 [facility] [id number] (12968) ALT (SGPT) 15 [iU]/L (Normal) Range: 0-32 [...] Glucose, Serum 130 mg/dL (Abnormal) Range: 65-99 57-Nbt-330255:46 LIPID PANEL (07751) Comments: PATIENT WAS FASTINGPERFORMED BY: LabCoLourdes Medical Center of Burlington CountyXaokuy1873 [facility] [id number] LDL/HDL Ratio 3.4 {ratio_units} (Abnormal) Range: 0.0-3.2 LDL Cholesterol Calc 130 mg/dL (Abnormal) Range: 0-99 VLDL Cholesterol Peg 57 mg/dL (Abnormal) Range: 5-40 HDL Cholesterol 38 mg/dL (Abnormal) Comments: According to ATP-III Guidelines, HDL-C >59 mg/dL is considered anegative risk factor for CHD. Triglycerides 287 mg/dL (Abnormal) Range: 0-149 Cholesterol, Total 225 mg/dL (Abnormal) Range: 100-199 :44 HgA1C , Office (59233) HgA1C , Office 6.6 % (Normal) Range: 4.6 - 7.1 :43 CBC, Platelets & Auto Diff Comments: PATIENT NOT FASTINGPERFORMED BY: LabCoLourdes Medical Center of Burlington CountyMqkvmv1025 [facility] [id number] Information: [id number] (66560) Immature Grans (Abs) 0.0 {x10E3/uL} (Normal) Range: [...] (Normal) Range: 3.4-10.8 :43 Metabolic Panel, Basic (91688) Comments: PATIENT NOT FASTINGPERFORMED BY: [facility]6370 [facility] [id number] Calcium, Serum 9.4 mg/dL (Normal) Range: 8.6-10.2 [...] mg/dL (Abnormal) Range: 65-99 :10 HANSA CULTURE-OTHER (33856) Comments: PATIENT NOT FASTINGPERFORMED BY: [facility]6370 [facility] [id number] Information: SRC:THRT [id number] Result 1 RFMNR (Normal) Comments: Mixed growth consisting of multiple gram negative rods and routinerespiratory vicente. Upper Respiratory Culture Final report (Normal) :56 Rapid Strep Test, Office (16530) Rapid Strep Test, Office Negative (Normal) :03 Blood Glucose , Office (31619) Blood Glucose , Office 150 (Normal) :14 PPD (62846) Comments: Lot: [id number]: 12/17Amt: 0.1mlRoute: intradermalSite: R FAGiven by: ANGEL Merlos SKIN TEST INTRADERMAL TB negative (Normal) :39 HgA1C , Office (75287) HgA1C , Office 6.4 % (Normal) Range: 4.6 - 7.1 :31 Microscopic Examination Comments: PATIENT WAS FASTINGPERFORMED BY: Pre[facility]us Rrklnt7862 [facility] [id number] Bacteria Few (Normal) Mucus Threads Present (Normal) Epithelial Cells (non renal) 0-10 {/hpf} (Normal) Range: 0 - 10 RBC 0-3 {/hpf} (Normal) Range: 0 - 3 WBC 0-5 {/hpf} (Normal) Range: 0 - 5 :31 MICROALBUMIN: CREATININE RATIO Comments: PATIENT WAS FASTINGPERFORMED BY: [facility] Lusfym5374 [facility] [id number] (66776) AND (36640) Microalb/Creat Ratio 12.6 {mg/g_creat} (Normal) Range: 0.0-30.0 Microalbumin, Urine 9.2 ug/mL (Normal) Range: 0.0-17.0 Creatinine, Urine 73.3 mg/dL (Normal) Range: 15.0-278.0 CBC WITH MANUAL DIFF Comments: PATIENT WAS FASTINGPERFORMED BY: Pre[facility]us Mdlyah8219 [facility] [id number] Information: [id number] (79084) Immature Grans (Abs) 0.0 {x10E3/uL} (Normal) Range: [...] PANEL, COMPREHENSIVE Comments: PATIENT WAS FASTINGPERFORMED BY: LabCoLourdes Medical Center of Burlington CountyZcvapi6507 [facility] [id number] (73548) ALT (SGPT) 14 [iU]/L (Normal) Range: 0-32 [...] (Abnormal) Range: 65-99 :31 URINALYSIS, W/ MICRO (25828) Comments: PATIENT WAS FASTINGPERFORMED BY: Remedify [facility] [id number] Microscopic Examination See below: (Normal) Microscopic Examination MICRON (Normal) Comments: Microscopic follows if indicated. Nitrite, Urine Negative (Normal) Urobilinogen,Semi-Qn 0.2 mg/dL (Normal) Range: 0.0-1.9 Bilirubin Negative (Normal) Occult Blood Negative (Normal) Ketones Negative (Normal) Glucose Negative (Normal) Protein Negative (Normal) Appearance Clear (Normal) Urine-Color Yellow (Normal) WBC Esterase Negative (Normal) pH 8.5 (Abnormal) Range: 5.0-7.5 Specific Shafter 1.018 (Normal) Range: 1.005-1.030 :31 LIPID PANEL (71848) Comments: PATIENT WAS FASTINGPERFORMED BY: howsimple [facility] [id number] LDL Cholesterol Calc 75 mg/dL (Normal) Range: [...] B-12 (CYANOCOBALAMIN) Comments: PATIENT WAS FASTINGPERFORMED BY: howsimple [facility] [id number] (29172) Vitamin B12 299 pg/mL (Normal) Range: 211-946 :31 Vitamin D Hydroxy (13840) Comments: PATIENT WAS FASTINGPERFORMED BY: [facility] Gngimt3332 [facility] [id number] Vitamin D, 25-Hydroxy 31.2 ng/mL (Normal) Range: 30.0-100.0 Comments: Vitamin D deficiency has been defined by the [place] ofMer[facility] Hospitalcine and an Endocrine Society practice guideline as alevel of serum 25-OH vitamin D less than 20 ng/mL (1,2).The Endocrine Society went on to further define vitamin Dinsufficiency as a level between 21 and 29 ng/mL (2).1. IOM ([place] of Medicine). 2010. Dietary reference intakes for calcium and D. [place]: The National Academies Press.2. Delma MF, Mckenna ABDALLA, Dane MACKENZIE, et al. Evaluation, treatment, and prevention of vitamin D deficiency: an Endocrine Society clinical practice guideline. JCEM. 2010; 96(7):1911-30. :31 TSH (94167) Comments: PATIENT WAS FASTINGPERFORMED BY: [facility] Utznet8989 [facility] [id number] TSH 4.190 {uIU/mL} (Normal) Range: 0.450-4.500 :15 HgA1C , Office (29937) HgA1C , Office 6.4 % (Normal) Range: 4.6 - 7.1 :15 Blood Glucose , Office (98059) Blood Glucose , Office 141 (Normal) :19 [...] M.D.October 02, 2012 at 9:24 :48 PM [id number] Signed RB/RB If you are the referring physician and would like to consult with theradiologist who provided this interpretation, please contact Mame Mario at . If this radiologist is unavailable, you will bedirected to another radiologist to assist. If you are a patient with a question regarding this report, pleasecontactyour referring physician hari benítez. Professional Interpretation Provided By: [employer], Phone , These documents contain legally protected [...] on 10/02/122128 Sign by: Keith Crocker DO 68-Xlf-51515:55 Vitamin D Hydroxy (81858) Comments: PATIENT NOT FASTINGPERFORMED BY: LabCoLourdes Medical Center of Burlington CountyFyxrxu3796 [facility] [id number] Information: [id number] Vitamin D, 25-Hydroxy 39.5 ng/mL (Normal) Range: 30.0-100.0 Comments: Vitamin D deficiency has been defined by the [place] ofMedicine and an Endocrine Society practice guideline as alevel of serum 25-OH vitamin D less than 20 ng/mL (1,2).The Endocrine Society went on to further define vitamin Dinsufficiency as a level between 21 and 29 ng/mL (2).1. IOM ([place] of Medicine). 2010. Dietary reference intakes for [...] mucosal abnormality. Normal gastroesophageal junction,without a demonstra laina hiatal hernia. The patient ingested a 12 mmtabletof barium without any difficulty. There is atherosclerotic tortuosity of the aortic arch and descendingthoracic aorta. Normal visualized pulmonary parenchyma. There are diffuse degenerative changes of the visualized thoracic spine.Electrodes from a bone stimulator device are seen. IMPRESSION:Normal plain film x-ray examination (barium swallow) of the esophagus. Signed:Florian Valenzuela M.D.September 17, 2012 at 9:02:07 AM [id number] Signed GP/GP If you are the referring physician and would like to consult with theradiologist damaso davenport provided this interpretation, please contact Mame Mccoy at [phone]. If this radiologist is unavailable, youwill be directed to another radiologist to assist. If you are a patient wi th a question regarding this report, pleasecontactyour referring physician directly. Professional Interpretation Provided By: [employer], Phone , These documents contain l egally [...] 211-946 7:31 (Normal) Comments: Performed at: [address] [id number] Director: Demarco Mccormack PhD, Phone: [phone] 17-Sep-2012 BID 0.10 mg/dL Range: 0.00-0.30 7:31 (Normal) 74-Zuk-82162:31 CBCMD ANC 3.6 3/uL (Normal) Range: 2.0-7.7 [...] IMPAIRED HOMEOSTASIS per A.D.A. criteria. :31 [facility] See Note {CFU/mL} (Normal) Comments: COLONY COUNT [...] Simpson M.D.September 13, 2012 at 2:32:10 PM [id number] Signed DL/DL If you are the referring physician and would like to consult with theradiologist who provided this interpretation, please co ntact Mame Lancaster at [phone]. If this radiologist is unavailable, youwillbe directed to another radiologist to assist. If you are a patient with a question regarding this report, pleasecont actyour referring physician directly. Professional Interpretation Provided By: [employer], Phone , These documents contain legally protected [...] 09/13/12 1437 Sign by: Theo Simpson MD 29-Elj-93239:36 THYROID Radiology Report See Note (Normal) Comments: [...] Valenzuela M.D.September 13 13 at 2:58:06 PM [id number] Signed GP/GP If you are the referring physician and would like to consult with theradiologist who provided this interpretation, please contact Brown chaidez M.D. at [phone]. If this radiologist is unavailable, youwill be directed to another radiologist to assist. If you are a patient with a question regarding this report, pleasecontactyour refer ring physician directly. Professional Interpretation Provided By: [employer], Phone , These documents contain legally protected [...] on 09/13/12 1503 Sign by: Nicolas ARAGON,Florian 22-Lea-57995:28 CRE Comments: CALL [id number] WITH RESULTSRESULTS CALLED TO DEBBIE 09/13/12 0801 AURA DIAZ.REPORT READ BACK BY SAME . GFR 105 mL/min (Normal) GFRAA 127 mL/min (Normal) CREAT 0.6 mg/dL (Normal) Range: 0.6-1.0 :23 URINE HANSA CULTURE-JEWELS COL Comments: PATIENT NOT FASTINGPERFORMED BY: [facility]6370 [facility] [id number] Information: SRC:UR [id number] COUNT (61281) Result 1 NG36 (Normal) Comments: No growth in 36 - 48 hours. Urine Culture,Comprehensive Final report (Normal) :39 Urinalysis, Office (68710) UA - BILIRUBIN Negative (Normal) UA - BLOOD Non Hemolyzed Trace (Normal) UA - GLUCOSE Negative (Normal) UA - KETONES Negative mg/dL (Normal) UA - LEUKOCYTE ESTERASE Negative (Normal) UA - NITRITE Negative (Normal) UA - PH 6.5 (Normal) UA - PROTEIN Negative mg/dL (Normal) UA - SPECIFIC GRAVITY 1.015 (Normal) URINE UROBILINGN JEWELS TIMED Normal mg/dL (Normal) :35 HgA1C , Office (77870) HgA1C , Office 6.3 % (Normal) Range: 4.6 - 7.1 52-Rac-17196:35 Blood Glucose , Office (18221) Blood Glucose , Office 143 (Normal) :54 Comp. Metabolic Panel (14) Comments: PATIENT WAS FASTINGPERFORMED BY: CLARITA PrevacusLourdes Medical Center of Burlington CountyCwshgf5106 [facility] [id number] Information: 07/08@830AM 07/09@830AM ALT (SGPT) 11 [iU]/L [...] Creatinine Clearance Comments: PATIENT WAS FASTINGPERFORMED BY: Badger MapsUp Health System6370 [facility] [id number] Creatinine Clearance 70 mL/min (Abnormal) Range: 88-128 Comments: The above range is based on 1.73 square meter average body surfacearea. Creatinine, Ur 24hr 777.0 {mg/24_hr} (Abnormal) Range: 800.0-1800.0 Creatinine, Urine 37.9 mg/dL (Normal) Range: 15.0-278.0 :54 Lipid Panel With LDL/HDL Comments: PATIENT WAS FASTINGPERFORMED BY: Prevacus Rpnhcz4127 Doyle Next SafetyMaria Parham Health [id number] Ratio LDL/HDL Ratio 2.6 {ratio_units} (Normal) Range: [...] Qn, 24-Hr Comments: PATIENT WAS FASTINGPERFORMED BY: Pre[facility]us Hyjdze9715 Doyle Next SafetyMaria [facility] [id number] Urine Prot,24hr calculated <30.8 {mg/24_hr} Range: 30.0-150.0 (Normal) Protein,Total,Urine <1.5 mg/dL (Normal) Range: 0.0-15.0 Comments: Verified by repeat analysis TSH 2.550 {uIU/mL} Comments: PATIENT WAS FASTINGPERFORMED BY: [facility] Gvrusb7724 [facility] [id number] :54 (Normal) Range: 0.450-4.500 Vitamin B12 271 pg/mL (Normal) Comments: PATIENT WAS FASTINGPERFORMED BY: Prevacus Nirfmj8990 [facility] HospitalSeaBright InsuranceFirstHealth [id number] :54 Range: 211-946 :08 CBC WITH MANUAL DIFF Comments: PATIENT NOT FASTINGPERFORMED BY: [facility] MapsSaint [facility] Lxtpqq0342 Doyle GigyaFirstHealth [id number] Information: [id number] (25950) Immature Grans (Abs) 0.0 {x10E3/uL} (Normal) Range: [...] 3.77-5.28 WBC 4.0 {x10E3/uL} (Normal) Range: 4.0-10.5 8-Uzj-284408:01 FECAL OCCULT- Tubes sent home (56268) FECAL OCCULT HGB ASSAY, QUAL, 1-3 SIMULTANEOU negative (Normal) 70-Sgk-57955:42 BILAT SCRN DIGITAL & CAD Radiology Report [...] Valenzuela M.D.April 30, 2012 at 8:16:04 AM [id number] Signed GP/GP If you are the referring physician and would like to consult with theradiologist who prov ided this interpretation, please contact Mame Mccoy at [phone]. If this radiologist is unavailable, youwill be directed to another radiologist to assist. If you are a patient with a qu estion regarding this report, pleasecontactyour referring physician directly. Professional Interpretation Provided By: [employer], Phone , These documents contain legally protected [...] by: Nicolas ARAGON,Florian :44 HgA1C , Office (56641) HgA1C , Office 6.3 % (Normal) Range: 4.6 - 7.1 :44 Blood Glucose , Office (43392) Blood Glucose , Office 150 (Normal) Comments: has part of a cinnamon bun for breakfast :52 Microscopic Examination Comments: PATIENT WAS FASTINGPERFORMED BY: LabSonoma OrthopedicsLourdes Medical Center of Burlington CountyAdpnym6245 [facility] [id number] Bacteria None seen (Normal) Mucus Threads Present (Normal) Epithelial Cells (non renal) 0-10 {/hpf} (Normal) Range: 0 - 10 RBC 0-3 {/hpf} (Normal) Range: 0 - 3 WBC 0-5 {/hpf} (Normal) Range: 0 - 5 :52 CBC WITH MANUAL DIFF Comments: PATIENT WAS FASTINGPERFORMED BY: miradio.fm LabWho-Sells-it.com6370 [facility] HospitalSeaBright InsuranceFirstHealth [id number] Information: [id number] (53240) Immature Grans (Abs) 0.0 {x10E3/uL} (Normal) Range: [...] (Normal) Range: 4.0-10.5 :52 URINALYSIS, W/ MICRO (46681) Comments: PATIENT WAS FASTINGPERFORMED BY: Four Eyes Connectbright [facility] [id number] Microscopic Examination See below: (Normal) Nitrite, Urine Negative (Normal) Urobilinogen,Semi-Qn 1.0 mg/dL (Normal) Range: 0.0-1.9 Bilirubin Negative (Normal) Occult Blood Negative (Normal) Ketones Negative (Normal) Glucose Negative (Normal) Protein 2+ (Abnormal) WBC Esterase Negative (Normal) Appearance Clear (Normal) Urine-Color Yellow (Normal) pH 7.0 (Normal) Range: 5.0-7.5 Specific Shafter 1.029 (Normal) Range: 1.005-1.030 :52 TSH (46416) Comments: PATIENT WAS FASTINGPERFORMED BY: Four EyesLourdes Medical Center of Burlington CountyEhoetg4952 [facility] [id number] TSH 2.060 {uIU/mL} (Normal) Range: 0.450-4.500 :52 METABOLIC PANEL, COMPREHENSIVE Comments: PATIENT WAS FASTINGPERFORMED BY: Four EyesLourdes Medical Center of Burlington CountyHlspff7765 [facility] [id number] (24360) ALT (SGPT) 16 [iU]/L (Normal) Range: 0-40 [...] mg/dL (Abnormal) Range: 65-99 :52 LIPID PANEL (24135) Comments: PATIENT WAS FASTINGPERFORMED BY: [facility]First[facility] [id number] LDL/HDL Ratio 2.2 {ratio_units} (Normal) Range: 0.0-3.2 [...] CREATININE RATIO Comments: PATIENT WAS FASTINGPERFORMED BY: GotVoice70 BarspaceFirstHealth [id number] (94716) AND (70936) Microalb/Creat Ratio 822.1 {mg/g_creat} (Abnormal) Range: 0.0-30.0 Microalbumin, Urine 844.3 ug/mL (Abnormal) Range: 0.0-17.0 Creatinine, Urine 102.7 mg/dL (Normal) Range: 15.0-278.0 07-Dzb-998664:18 HgA1C , Office (68794) HgA1C , Office 6.3 % (Normal) Range: 4.6 - 7.1 42-Ois-257171:16 CHEST WITH CONTRAST Radiology Report See Note [...] radiologist regarding this report, please call our [id number] line @ Dictated on 12/14/11 1033 by Nicolas ARAGON,[facility] bed on 12/14/11 1438 by ITS IMPORTSign by Florian Valenzuela MD on 12/14/11 1439 Sign by: Florian Valenzuela MD 05-Dec-20119:19 CBC WITH MANUAL DIFF Comments: PATIENT WAS FASTINGPERFORMED BY: LabCo Cxotmq4384 [facility] [id number] Information: [id number] (69384) Immature Grans (Abs) 0.0 {x10E3/uL} (Normal) Range: [...] PANEL, COMPREHENSIVE Comments: PATIENT WAS FASTINGPERFORMED BY: [employer]6370 [address] [facility] [id number] (66070) ALT (SGPT) 14 [iU]/L (Normal) Range: 0-40 [...] mg/dL (Abnormal) Range: 65-99 :19 LIPID PANEL (03284) Comments: PATIENT WAS FASTINGPERFORMED BY: howsimple [facility] [id number]; appt 12-21-11 LDL/HDL Ratio 3.0 {ratio_units} Range: [...] {units} (Normal) Comments: PATIENT NOT FASTINGPERFORMED BY: enrich-in Afmvxv6082 [facility] [id number] BY: Prevacus[address] [id number] 10:24 Range: 0-19 Comments: Negative <20 Weak positive 20 - 39 Moderate positive 40 - 59 Strong positive >59 2-Lyq-210257:24 EBV Panel (89386) Comments: PATIENT NOT FASTINGPERFORMED BY: Rontal Applicationslin6370 [facility] [id number] BY: Prevacus[address] [id number] Interpretation: SPRCS (Normal) Comments: EBV Interpretation Chart [...] <0.9 Equivocal 0.9 - 1.0 Positive >1.0 4-Zlp-452545:24 SED RATE ERYTHROCYTE Comments: PATIENT NOT FASTINGPERFORMED BY: [place] 1807970 [facility] [id number] BY: [address] [id number] (24046) Sedimentation Rate-Westergren 6 mm/h (Normal) Range: 0-40 2-Cpw-170595:24 C-REACTIVE PROTEIN (73759) Comments: PATIENT NOT FASTINGPERFORMED BY: [place] 1807970 [facility] [id number] BY: [address] [id number] C-Reactive Protein, Quant 2.1 mg/L (Normal) Range: 0.0-4.9 9-Mkq-097304:24 TSH (09769) Comments: PATIENT NOT FASTINGPERFORMED BY: [place] 1807970 [facility] [id number] BY: [address] [id number] TSH 1.610 {uIU/mL} (Normal) Range: 0.450-4.500 8-Lhd-110366:24 RHEUMATOID FACTOR-QUANT Comments: PATIENT NOT FASTINGPERFORMED BY: [place] 1807970 [facility] [id number] BY: [address] [id number] (98089) RA Latex Turbid. 8.4 {IU/mL} (Normal) Range: 0.0-13.9 8-Gcf-907693:24 [place] (ANTINUCLEAR ANTIBODY) Comments: PATIENT NOT FASTINGPERFORMED BY: [place] 1807970 [facility] [id number] BY: LabCoPatricia V[place] [id number] [facility] [facility] [id number] ([id number]) [place] Direct Negative (Normal) 2-Mmn-526561:24 CBC WITH MANUAL DIFF Comments: PATIENT NOT FASTINGPERFORMED BY: [facility] Kthqdp5553 [facility] [id number] BY: [facility]Co[address] [id number] Inf ormation: [id number] (24220) Immature Grans (Abs) 0.0 {x10E3/uL} (Normal) Range: [...] 3.80-5.10 WBC 4.6 {x10E3/uL} (Normal) Range: 4.0-10.5 4-Hdz-918624:24 METABOLIC PANEL, Comments: PATIENT NOT FASTINGPERFORMED BY: CB [facility] Yunbna8924 Vivek [facility]Un[facility] [place] [place] [id number] BY: BN [facility] Qrmgkdvglc0247 [facility] [id number]; appt 12-21-11 COMPREHENSIVE (65350) ALT (SGPT) 13 [iU]/L (Normal) Range: 0-40 [...] Glucose, Serum 118 mg/dL (Abnormal) Range: 65-99 8-Gtb-108796:51 HANSA CULTURE-OTHER (56214) Comments: PATIENT NOT FASTINGPERFORMED BY: CLARITA LabCoLour[facility] Burlington CountyTtjmhn0849 [facility] [id number] Information: SRC:AIDAN [id number] Result 1 RRF (Normal) Comments: Routine respiratory vicente Upper Respiratory Culture Final report (Normal) 07-Nov-20119:19 Rapid Strep Test, Office (41907) Rapid Strep Test, Office Negative (Normal) 70-Orh-738236:16 HgA1C , Office (70863) HgA1C , Office 6.1 % (Normal) Range: 4.6 - 7.1 53-Dzs-096330:16 Blood Glucose , Office (71609) Blood Glucose , Office 141 (Normal) 17-Cyt-264827:10 ABDOMEN/PELVIS WITH CONTRAST Radiology Report See Note [...] 1410 Si gn by: Florian Valenzuela MD 75-Swq-429126:39 CHEST WITH CONTRAST Radiology Report See Note [...] noted, distal end at the level of W1yssul. Normal osseous structures. There is limited visualization of the liver, spleen w ithout ademonstratedabnormality. IMPRESSION:No pulmonary embolism. No aortic dissection. Nonspecific two to 3-mmsubtle nodular density at right upper lobe, image 145 probably representatypically atelec tatic change. Dictated on 04/21/11 1104 by Leonard Odell MDranscribed on 04/22/11 1013 by ITS IMPORTSign by Jordan Odell MD on 04/22/11 1014 Sign by: Jordan Odell MD 97-Fnx-056497:29 MICROALBUMIN: CREATININE RATIO Comments: PATIENT WAS FASTINGPERFORMED BY: [facility]6370 [facility] [id number] (47501) AND (27539) Microalb/Creat Ratio 11.8 {mg/g_creat} (Normal) Range: 0.0-30.0 Microalbumin, Urine 7.3 ug/mL (Normal) Range: 0.0-17.0 Creatinine, Urine 61.9 mg/dL (Normal) Range: 15.0-278.0 :29 LIPID PANEL (44273) Comments: PATIENT WAS FASTINGPERFORMED BY: [employer]6370 [facility] [id number]; appt 07/25/11 VLDL Cholesterol Peg VLDLCH mg/dL [...] MANUAL DIFF Comments: PATIENT WAS FASTINGPERFORMED BY: PrevacusCHRISTUS St[facility] CenterNuwdnz4038 [facility] [id number] Information: [id number] (63717) Immature Grans (Abs) 0.0 {x10E3/uL} (Normal) Range: [...] 3.80-5.10 WBC 5.7 {x10E3/uL} (Normal) Range: 4.0-10.5 60-Wma-406556:29 METABOLIC PANEL, COMPREHENSIVE Comments: PATIENT WAS FASTINGPERFORMED BY: LabCoLourdes [facility] of Burlington CountyOueeyw8464 [facility] [id number] (35979) ALT (SGPT) 12 [iU]/L (Normal) Range: 0-40 [...] Glucose, Serum 120 mg/dL (Abnormal) Range: 65-99 29-Ffg-23684:46 THYROID Radiology Report See Note (Normal) Comments: [...] on 03/28/11 1149 Sign by: Jose R ARAGON,[facility] :10 CHEST, PA AND LATERAL Radiology Report [...] 1019 Sign by: ___ Florian Valenzuela MD 29-Vcu-44225:47 SOFT TISSUE NECK WITH CONTRAST Radiology Report [...] malformation. Normal bilateral parotid glands. Normal bilateral training developer spaces.Normal bilateral parapharyngeal spaces. Normal bilateral carotid [...] 01/24/11 1017 Sign by: Florian Valenzuela MD 13-Ryt-66972:15 CBC WITH MANUAL DIFF Comments: PATIENT WAS FASTINGPERFORMED BY: [facility]6370 [facility] [id number] Information: [id number] (03803) Immature Grans (Abs) 0.0 {x10E3/uL} (Normal) Range: [...] 3.80-5.10 WBC 7.0 {x10E3/uL} (Normal) Range: 4.0-10.5 26-Qus-66821:15 METABOLIC PANEL, COMPREHENSIVE Comments: PATIENT WAS FASTINGPERFORMED BY: LabCoLour[facility] of Burlington CountyJhfhlr9083 [facility] [id number] (06503) ALT (SGPT) 10 [iU]/L (Normal) Range: 0-40 [...] mg/dL (Abnormal) Range: 65-99 :15 LIPID PANEL (39506) Comments: PATIENT WAS FASTINGPERFORMED BY: Rontal Applicationslin6370 [facility] [id number]; has f/u 04/20/11 LDL/HDL Ratio 2.5 {ratio_units} (Normal) Range: 0.0-3.2 LDL Cholesterol Calc 94 mg/dL (Normal) Range: 0-99 VLDL Cholesterol Peg 46 mg/dL (Abnormal) Range: 5-40 HDL Cholesterol 37 mg/dL (Abnormal) Comments: According to ATP-III Guidelines, HDL-C >59 mg/dL is considered anegative risk factor for CHD. Triglycerides 230 mg/dL (Abnormal) Range: 0-149 Cholesterol, Total 177 mg/dL (Normal) Range: 100-199 :15 HgA1C , Office (14938) Comments: PATIENT WAS FASTINGPERFORMED BY: [facility] Ysoiya3930 [facility] [id number] Glycohemoglobin (GHb), Total 7.7 % (Normal) Comments: Diabetic Adult <9.0 Healthy Adult 3.9 - 7.3 (DCCT/NGSP) Current ADA guide lines recommend a treatment goal of <7.0% HgbA1c for diabetic patients, which corresponds to a <9.0% Glycohemoglobin result with this method. :50 Blood Glucose , Office (80382) Blood Glucose , Office 160 (Normal) :48 [...] = 500 mg/dL :33 HgA1C , Office (15548) HgA1C , Office 6.5 % (Normal) Range: 4.6 - 7.1 :33 Blood Glucose , Office (70342) Blood Glucose , Office 154 (Normal) 83-Zws-619067:11 Influenza A, H1N1, RT PCR Comments: PERFORMED BY: [facility] [id number] BY: [facility] [id number] Information: SRC:NL Subtype Novel H1N1 by Negative (Normal) PCR Type Influenza A by Negative (Normal) PCR Viral FLUABN (Normal) Comments: PERFORMED BY: [employer] [id number] BY: [employer] [id number] :11 Culture,Rapid,Influenz Comments: Negative:No Influenza A or B detected. a :04 Urinalysis, Office (56787) UA - BILIRUBIN Negative (Normal) UA - BLOOD Negative (Normal) UA - GLUCOSE Negative (Normal) UA - KETONES Negative mg/dL (Normal) UA - LEUKOCYTE ESTERASE Negative (Normal) UA - NITRITE Negative (Normal) UA - PH 6.0 (Normal) UA - PROTEIN Negative mg/dL (Normal) UA - SPECIFIC GRAVITY 1.025 (Normal) URINE UROBILINGN JEWELS TIMED Normal mg/dL (Normal) :59 Vitamin D Hydroxy (15058) Comments: PATIENT WAS FASTINGPERFORMED BY: [facility] [id number] Vitamin D, 25-Hydroxy 32.0 ng/mL (Normal) Range: 32.0-100.0 Comments: Recent studies consider the lower limit of 32.0 ng/mL to be athreshold for optimal health.Jose MAYA. J Nutr. 2004;135(2):317-22. 4:59 METABOLIC PANEL, Comments: PATIENT WAS FASTINGPERFORMED BY: LabCoLourdes [facility] of Burlington CountyOexzkv9954 [facility] [id number] Information: [id number] COMPREHENSIVE (65839) ALT (SGPT) 9 [iU]/L (Normal) Range: 0-40 [...] mg/dL (Abnormal) Range: 65-99 :59 LIPID PANEL (88846) Comments: PATIENT WAS FASTINGPERFORMED BY: [employer]6370 [facility] [id number] LDL Cholesterol Calc 87 mg/dL (Normal) Range: [...] MANUAL DIFF Comments: PATIENT WAS FASTINGPERFORMED BY: EmbedStorelin6370 [facility] [id number] Information: ADD [id number] AND DRAW FEE [id number] (78118) Immature Grans (Abs) 0.0 {x10E3/uL} (Normal) Range: [...] CREATININE RATIO Comments: PATIENT WAS FASTINGPERFORMED BY: Four EyesLourdes Medical Center of Burlington CountyNmzgoe9289 [facility] [id number] (68651) AND (06218) Creatinine, Urine 87.5 mg/dL (Normal) Range: 15.0-278.0 Microalb/Creat Ratio 4.5 {mg/g_creat} (Normal) Range: 0.0-30.0 Microalbumin, Urine 3.9 ug/mL (Normal) Range: 0.0-17.0 :57 METABOLIC PANEL, COMPREHENSIVE Comments: PATIENT WAS FASTINGPERFORMED BY: PrevacusLourdes Medical Center of Burlington CountyUrrrca2091 [facility] [id number] (43285) ALT (SGPT) 12 [iU]/L (Normal) Range: 0-40 [...] mg/dL (Abnormal) Range: 65-99 :57 LIPID PANEL (01368) Comments: PATIENT WAS FASTINGPERFORMED BY: enrich-in Sefufk3281 [facility] [id number] LDL Cholesterol Calc 138 mg/dL (Abnormal) Range: 0-99 LDL/HDL Ratio 2.9 {ratio_units} (Normal) Range: 0.0-3.2 HDL Cholesterol 47 mg/dL (Normal) Comments: According to ATP-III Guidelines, HDL-C >59 mg/dL is considered anegative risk factor for CHD. VLDL Cholesterol Peg 29 mg/dL (Normal) Range: 5-40 Cholesterol, Total 214 mg/dL (Abnormal) Range: 100-199 Triglycerides 147 mg/dL (Normal) Range: 0-149 :05 HgA1C , Office (97594) HgA1C , Office 6.5 % (Normal) Range: 4.6 - 7.1 :05 Blood Glucose , Office (65301) Blood Glucose , Office 140 (Normal) :35 MICROALBUMIN: CREATININE RATIO Comments: PATIENT WAS FASTINGPERFORMED BY: Rontal Applicationslin6370 [facility] [id number] (43888) AND (13682) Creatinine, Urine 94.9 mg/dL (Normal) Range: 15.0-278.0 Microalb/Creat Ratio 10.7 {mg/g_creat} (Normal) Range: 0.0-30.0 Microalbumin, Urine 10.2 ug/mL (Normal) Range: 0.0-17.0 :35 CBC WITH MANUAL DIFF Comments: PATIENT WAS FASTINGPERFORMED BY: PrevacusLourdes Medical Center of Burlington CountyGzqytz1815 [facility] [id number] Information: [id number] (36574) Baso (Absolute) 0.0 {x10E3/uL} (Normal) Range: 0.0-0.2 [...] PANEL, COMPREHENSIVE Comments: PATIENT WAS FASTINGPERFORMED BY: LabCoLourdes [facility] Center of Burlington CountySedxaz1250 [facility] [id number] (87954) ALT (SGPT) 12 [iU]/L (Normal) Range: 0-40 [...] mg/dL (Abnormal) Range: 65-99 :35 LIPID PANEL (48111) Comments: PATIENT WAS FASTINGPERFORMED BY: [facility] Oxvqud6491 Vivek [place]ann[place] [id number] LDL Cholesterol Calc 103 mg/dL (Abnormal) Range: 0-99 LDL/HDL Ratio 3.0 {ratio_units} (Normal) Range: 0.0-3.2 HDL Cholesterol 34 mg/dL (Abnormal) Comments: According to ATP-III Guidelines, HDL-C >59 mg/dL is considered anegative risk factor for CHD. VLDL Cholesterol Peg 38 mg/dL (Normal) Range: 5-40 Cholesterol, Total 175 mg/dL (Normal) Range: 100-199 Triglycerides 190 mg/dL (Abnormal) Range: 0-149 :31 HgA1C , Office (95989) HgA1C , Office 6.2 % (Normal) Range: 4.6 - 7.1 :31 Blood Glucose , Office (67437) Blood Glucose , Office 113 (Normal) :03 BILAT SCRN DIGITAL & CAD Radiology Report See Note (Normal) Comments: Exam Number: [id number] MAMMOGRAPHY - BILATERAL SCREENING INDICATION:Routine annual screening [...] of attaching a ResultCode to this exam.ADDENDUM: [id number] HPBI/MDS Reported By: BRIAN JIMENEZ M.D. :02 DEXA BONE DENSITY STUDY (HP) Radiology Report See Note (Normal) Comments: Exam Number: [id number] CLINICAL:Assess bone density EXAMINATION:DUAL ENERGY X-RAY ABSORPTIOMETRY / DEXA. TECHNIQUE:Bone Density Measurements (BMD) of left hip and left forearm wereobtained using a Spotie dual energy scanner. COMPARISON:A report from 2001 [...] NIH Osteoporosis and Related Bone Diseases http://www.osteo.org2. Software Clerk ational Society for Clinical Densitometryhttp://www.iscd.org3. National Osteoporosis Foundation http://www.nof.org Reported By: NELLY LINCOLN M.D. 95-Epx-19537:11 HgA1C , Office (75345) HgA1C , Office 6.2 % (Normal) Range: 4.6 - 7.1 :11 Blood Glucose , Office (15688) Blood Glucose , Office 186 (Normal) :25 TSH (82224) Comments: PATIENT WAS FASTINGPERFORMED BY: [facility] Fajjet4541 [facility] [id number] TSH 2.340 {uIU/mL} (Normal) Range: 0.450-4.500 :25 METABOLIC PANEL, COMPREHENSIVE Comments: PATIENT WAS FASTINGPERFORMED BY: [facility] Vsjoqd5179 [facility] [id number] (31482) ALT (SGPT) 10 [iU]/L (Normal) Range: 0-40 [...] MANUAL DIFF Comments: PATIENT WAS FASTINGPERFORMED BY: [facility]6370 [facility] [id number] Information: ADD DRAW FEE [id number] AND [id number] (72865) Baso (Absolute) 0.0 {x10E3/uL} (Normal) Range: 0.0-0.2 [...] {x10E3/uL} (Normal) Range: 4.0-10.5 :25 LIPID PANEL (67568) Comments: PATIENT WAS FASTINGPERFORMED BY: [facility]6370 [facility] [id number] LDL/HDL Ratio 2.6 {ratio_units} (Normal) Range: 0.0-3.2 Cholesterol, Total 183 mg/dL (Normal) Range: 100-199 HDL Cholesterol 34 mg/dL (Abnormal) Comments: According to ATP-III Guidelines, HDL-C >59 mg/dL is considered anegative risk factor for CHD. LDL Cholesterol Calc 90 mg/dL (Normal) Range: 0-99 Triglycerides 295 mg/dL (Abnormal) Range: 0-149 VLDL Cholesterol Peg 59 mg/dL (Abnormal) Range: 5-40 :02 HgA1C , Office (70017) HgA1C , Office 6.2 % (Normal) Range: 4.6 - 7.1 :02 Blood Glucose , Office (83565) Blood Glucose , Office 152 (Normal) :02 HEPATIC FUNCTION PANEL Comments: PATIENT WAS FASTINGPERFORMED BY: [facility]6370 [facility] [id number] (62491) Alkaline Phosphatase, S 63 [iU]/L (Normal) Range: 25-165 ALT (SGPT) 13 [iU]/L (Normal) Range: 0-40 AST (SGOT) 14 [iU]/L (Normal) Range: 0-40 Bilirubin, Direct 0.10 mg/dL (Normal) Range: 0.00-0.40 Bilirubin, Total 0.4 mg/dL (Normal) Range: 0.1-1.2 Albumin, Serum 4.6 g/dL (Normal) Range: 3.6-4.8 Protein, Total, Serum 7.0 g/dL (Normal) Range: 6.0-8.5 :02 LIPID PANEL (20808) Comments: PATIENT WAS FASTINGPERFORMED BY: [facility]6370 [facility] [id number] LDL Cholesterol Calc 114 mg/dL (Abnormal) Range: 0-99 LDL/HDL Ratio 3.6 {ratio_units} (Abnormal) Range: 0.0-3.2 HDL Cholesterol 32 mg/dL (Abnormal) Comments: According to ATP-III Guidelines, HDL-C >59 mg/dL is considered anegative risk factor for CHD. Triglycerides 319 mg/dL (Abnormal) Range: 0-149 VLDL Cholesterol Peg 64 mg/dL (Abnormal) Range: 5-40 Cholesterol, Total 210 mg/dL (Abnormal) Range: 100-199 :45 HgA1C , Office (12347) HgA1C , Office 6.2 % (Normal) Range: 4.6 - 7.1 :45 Blood Glucose , Office (25376) Blood Glucose , Office 193 (Normal) :34 MICROALBUMIN: CREATININE RATIO Comments: PATIENT WAS FASTINGPERFORMED BY: [employer]70 [facility] [id number] (89726) AND (39717) Creatinine, Urine 126.3 mg/dL (Normal) Range: 15.0-278.0 Microalb/Creat Ratio 7.6 {mg/g_creat} (Normal) Range: 0.0-30.0 Microalbumin, Urine 9.6 ug/mL (Normal) Range: 0.0-17.0 :34 METABOLIC PANEL, COMPREHENSIVE Comments: PATIENT WAS FASTINGClinical Information: ADD [id number] CC:3302PERFORMED BY: [employer]6370 [facility] [id number] (41800) A/G Ratio 1.7 (Normal) Range: 1.1-2.5 Albumin, [...] FUNCTION PANEL Comments: PATIENT WAS FASTINGPERFORMED BY: miradio.fm [facility] Tqwukr5430 [facility] [id number] (15739) Bilirubin, Direct 0.08 mg/dL (Normal) Range: 0.00-0.40 :34 LIPID PANEL (88210) Comments: PATIENT WAS FASTINGPERFORMED BY: miradio.fm LabCoLourdes Medical Center of Burlington CountyPtciei9050 [facility] [id number] Cholesterol, Total 186 mg/dL (Normal) Range: 100-199 HDL Cholesterol 38 mg/dL (Abnormal) Comments: According to ATP-III Guidelines, HDL-C >59 mg/dL is considered anegative risk factor for CHD. LDL Cholesterol Calc 102 mg/dL (Abnormal) Range: 0-99 LDL/HDL Ratio 2.7 {ratio_units} (Normal) Range: 0.0-3.2 Triglycerides 232 mg/dL (Abnormal) Range: 0-149 VLDL Cholesterol Peg 46 mg/dL (Abnormal) Range: 5-40 18-Lss-080441:36 HgA1C , Office (55562) HgA1C , Office 6.3 % (Normal) Range: 4.6 - 7.1 07-Hvr-728699:36 Blood Glucose , Office (13428) Blood Glucose , Office 129 (Normal) 8-Dle-833129:12 BILAT SCRN DIGITAL & CAD Radiology Report See Note (Normal) Comments: Exam Number: [id number] MAMMOGRAM, BILATERAL SCREENING DIGITAL AND CAD HISTORY: [...] 1992 (MQSA). The mammograms werealso examined w [employer] computer-aided detection software ([employer], [employer], [employer].). Reported By: BRIAN JIMENEZ M.D. 97-Fvd-458739:57 HgA1C , Office (42449) HgA1C , Office 6.3 % (Normal) Range: 4.6 - 7.1 48-Edv-602403:57 Blood Glucose , Office (81429) Blood Glucose , Office 111 (Normal) :40 [...] for patient's is the eGFRmultiplied by 1.212. [facility] Laboratory uses the abbreviated Modification of [...] Disease W/O Kidney Disease>/= 90 Stage One Nrtvtq73 - 89 Stage Two Suspect Decreased GFR30 [...] (Normal) Range: 5-40 :30 HgA1C , Office (05805) HgA1C , Office 6.2 % (Normal) Range: 4.6 - 7.1 :30 Blood Glucose , Office (69828) Blood Glucose , Office 167 (Normal) :33 [...] (Normal) Range: 211-911 :51 HgA1C , Office (93742) HgA1C , Office 5.9 % (Normal) Range: 4.6 - 7.1 08-Yhf-747843:51 Blood Glucose , Office (27853) Blood Glucose , Office 113 (Normal) :49 [...] >240 mg/dL High Risk :01 Urinalysis, Office (49653) UA - BILIRUBIN Negative (Normal) UA - [...] Comments: GLU,2HPPG 75gm GLUC PPG GLUP from 0603:N38744O. 43-Lvq-674462:44 CHEST, PA AND LATERAL Radiology Report See Note (Normal) Comments: Exam Number: [id number] PA AND LATERAL CHEST HISTORY Being done for chest pain. FINDINGSCardiac configuration is upper limits of normal to mildly enlarged.There is mild elevation, left hemid iaphragm. No acute infiltrate,effusion, or pneumothorax is identified. There is moderate spurformation noted in the lower dorsal spine. IMPRESSION1. A number of chronic changes.2. No acute infiltrate. Reported By: CADE EMRCER M.D. 90-Yeu-457658:20 URINE HANSA CULTURE-IDENTIFICATN Comments: PATIENT NOT FASTINGClinical Information: ADD [id number] PERFORMED BY: LabCoLourdes [facility] of Burlington CountyJpefnz1473 [facility] [id number] (70390) Jennifer HERNANDEZ (Normal) Comments: S = Susceptible; [...] mL (Normal) Urine Final report Culture,Comprehensive (Normal) 94-Sub-32939:00 CBC With Differential/Platelet Comments: PATIENT NOT FASTINGPERFORMED BY: [facility] Qxdzci0015 [facility] [id number] Baso (Absolute) 0.1 {x10E3/uL} (Normal) Range: 0.0-0.2 [...] 11.7-15.0 WBC 6.0 {x10E3/uL} (Normal) Range: 4.0-10.5 94-Raw-61698:00 Comp. Metabolic Panel (14) Comments: PATIENT NOT FASTINGPERFORMED BY: [facility] Hjwabl8371 [facility] [id number] A/G Ratio 1.7 (Normal) Range: 1.1-2.5 Albumin, [...] Serum 116 mg/dL (Abnormal) Range: 65-99 If -Djiboutian >60 mL/min (Normal) Range: 60-128 Comments: Note: [...] (Normal) Range: 0.34-4.82 :33 HgA1C , Office (76424) HgA1C , Office 5.2 % (Normal) Range: 4.6 - 7.1 :33 Blood Glucose , Office (08085) Blood Glucose , Office 172 (Normal) :08 FEMUR,2 VIEWS Radiology Report See Note (Normal) Comments: Exam Number: [id number] AP AND LATERAL LEFT TIBIA/FIBULA. HISTORYBeing done [...] Report See Note (Normal) Comments: Exam Number: [id number] AP AND LATERAL LEFT TIBIA/FIBULA. HISTORYBeing done [...] (Normal) Range: 0.34-4.82 :53 HgA1C , Office (37456) Comments: done-[facility] HgA1C , Office 5.3 % (Normal) Range: 4.6 - 7.1 :53 Blood Glucose , Office (35156) Comments: done-[facility] Blood Glucose , Office 94 (Normal) [...] Range: 6.4-8.2 :18 Blood Glucose , Office (90874) Blood Glucose , Office 5.6 (Normal) :18 HgA1C , Office (09848) HgA1C , Office 142 % (Abnormal) Range: [...] :00 AMIE 25 U/L (Normal) Comments: COMMENTS: [facility] [address]*: NOT APPLICABLE Range: 25-115 :00 CBCD Comments: COMMENTS: [facility] [address]*: NOT APPLICABLE BASO% 0.1 [...] 11.6-14.6 WBC 5.3 K/mm3 (Normal) Range: 4.4-11.0 84-Byr-760842:00 COMP METABOLIC Comments: COMMENTS: BED 7 DR [...] T PROT 8.0 g/dL (Normal) Range: 6.4-8.2 55-Qkx-454975:00 D BILI 0.14 mg/dL (Normal) Comments: COMMENTS: [...] mg/dL VLDL 50 mg/dL (Abnormal) Range: 5-40 7-Uer-975398:02 URINALYSIS (43726) URINALYSIS Comments: uNABLE TO PUT RESULTS IN CORRECTLY- MRLLTXY-KLCQUTQQJGQM-WXGOFPVQQKV-NEGS.G.-1.495GLBBC-XNLUTQCPMO-1.4XDAXENT-CLKBQVNRIOR-6.1PUBATJYK-PHKOSBFYJGLLCLUZLY-MEVZR (Normal) :09 HgA1C , Office (83828) HgA1C , Office 5.4 % (Normal) Range: 4.6 - 7.1 :09 Blood Glucose , Office (04859) Blood Glucose , Office 161 (Normal) Plan [...] II, controlled, with no complications CAD in [place] artery : Reviewed Cook Jelly Letter Indication: CAD in [place] artery Mixed hyperlipidemia : Cholesterol mgmt Indication: [...] B12 shots montly Indication: Macrocytosis CAD in [place] artery : Reviewed Cook Jelly Letter Indication: CAD in [place] artery CAD in [place] artery : Continue Current Prescription(s) Indication: CAD in [place] artery Diabetes mellitus type 2, uncontrolled, without [...] Pulmonary hypertension, moderate to severe : Reviewed Cook Jelly Letter Indication: Pulmonary hypertension, moderate to severe [...] S/P laminectomy with spinal fusion : Reviewed Cook Jelly Letter Indication: S/P laminectomy with spinal fusion Macrocytosis without anemia : Reviewed Lab Indication: Macrocytosis without anemia Diabetes mellitus type II, controlled, with no complications : Reviewed Diagnostic Tests Indication: Diabetes mellitus type II, controlled, with no complications S/P laminectomy with spinal fusion : Reviewed Cook Jelly Letter Indication: S/P laminectomy with spinal fusion [...] pneumonia) CAP (community acquired pneumonia) : Reviewed Cook Jelly Letter Indication: CAP (community acquired pneumonia) Sinusitis, bacterial : Eprescribed prescriptions (G8553) Indication: Sinusitis, bacterial Pulmonary hypertension, moderate to severe : Reviewed Diagnostic Tests Indication: Pulmonary hypertension, moderate to severe Nonsmoker : Eprescribed prescriptions (G8553) Indication: Nonsmoker Bronchitis : Reviewed Diagnostic Tests Indication: Bronchitis Bronchitis : Reviewed Cook Jelly Letter Indication: Bronchitis Bronchitis : *Antibiotic Usage [...] : FOLLOW UP IN 3 DAYS with [facility] Indication: EDEMA, NOS Benign paroxysmal positional vertigo : Reviewed Cook Jelly Letter Indication: Benign paroxysmal positional vertigo Acute [...] MONTHS Indication: Mixed hyperlipidemia Planned Observations TSH (02419)Indication: Diabetes mellitus type 2, uncontrolled, without complications On: 42 Request URINALYSIS, W/ MICRO (89207)Indication: Diabetes mellitus type 2, uncontrolled, without complications On: :42 Request MICROALBUMIN: CREATININE RATIO (71940) AND (24966)Indication: Diabetes mellitus type 2, uncontrolled, without complications On: 42 Request METABOLIC PANEL, COMPREHENSIVE (64199)Indication: Hypertensive heart disease without heart failure On: 7-Bpj-692008:42 Request LIPID PANEL (97211)Indication: Mixed hyperlipidemia On: :42 Request CBC W/AUTO DIFF WBC (66295)Indication: Hypertensive heart disease without heart failure On: 9-Puh-109686:42 Request LIPID PANEL (74139)Indication: Diabetes mellitus type 2, uncontrolled, without complications On: 0-Giw-787750:25 Request CBC WITH MANUAL DIFF (92130)Indication: Elevated platelet count On: :11 Request LIPASE (56831)Indication: Flu-like symptoms On: 2-Hgs-955953:53 Request Comments: stat POTASSIUM SERUM (37321)Indication: Hypokalemia On: :40 Request MAGNESIUM (81791)Indication: Hypomagnesemia On: 67-Ubg-134677:40 Request Renal function Panel (28541)Indication: Hypokalemia On: 36-Ewb-815289:48 Request POTASSIUM SERUM (62477)Indication: Hypokalemia (Renamed from Decreased potassium in the blood) On: 03-Nov-20169:06 Request POTASSIUM SERUM (24793)Indication: Hypokalemia (Renamed from Decreased potassium in the blood) On: 96-Iqx-373966:55 Request POTASSIUM SERUM (90290)Indication: Hypokalemia On: 7-Jvu-205847:22 Request MAGNESIUM (23769)Indication: Hypokalemia On: 1-Ovd-450306:21 Request URINE HANSA CULTURE-JEWELS COL COUNT (07364)Indication: UTI (urinary tract infection), bacterial On: :54 Request MAGNESIUM (55249)Indication: Abdominal pain On: 97-Lby-909070:45 Request Comments: do in 3 weeks CALCIFEDIOL (09072)Indication: Vitamin D deficiency On: 47-Mlv-224871:14 Request LIPID PANEL (25253)Indication: Mixed hyperlipidemia On: 70-Ats-467791:13 Request VITAMIN B12 AND FOLATES (25401)Indication: B12 deficiency anemia On: 09-Iso-210989:13 Request TSH (THYROID STIMULATING HORMONE) (04719)Indication: Thyroid Nodule On: 24-Bag-178024:13 Request METABOLIC PANEL, COMPREHENSIVE ([id number])Indication: Mixed hyperlipidemia On: :13 Request CBC WITH MANUAL DIFF ([id number])Indication: Hypertensive heart disease without heart failure On: 08-Gna-944264:13 Request MICROALBUMIN: CREATININE RATIO (62636) AND (10635)Indication: Hypertensive heart disease without heart failure On: 64-Aph-759722:13 Request MYOGLOBIN ([id number])Indication: Sweating abnormality On: 49-Ran-212343:11 Request CPK MB FRACTION (12029)Indication: Sweating abnormality On: 39-Hyq-661589:11 Request ASSAY, TROPONIN, QUANTITATIVE (aka Troponin I) (95366)Indication: Sweating abnormality On: 47-Dxg-076590:11 Request METABOLIC PANEL, BASIC (96544)Indication: Hypokalemia (Renamed from Decreased potassium in the blood) On: 26-Xvv-413498:16 Request PARATHORMONE ([id number])Indication: Hypocalcemia On: 60-Tno-715964:23 Request Magnesium (46727)Indication: Hypokalemia (Renamed from Decreased potassium in the blood) On: 37-Ojp-309467:22 Request CALCIUM, IONIZED (07948)Indication: Hypocalcemia On: 66-Fkd-756739:21 Request VITAMIN B12 AND FOLATES (07426)Indication: Macrocytosis without anemia On: 77-Ijs-555657:39 Request SMEAR+INTERP FLUOR STAIN (58146)Indication: Macrocytosis without anemia On: 45-Iuz-480912:37 Request MICROALBUMIN: CREATININE RATIO (15654) AND (56075)Indication: Hypertensive heart disease without heart failure On: 37-Pxl-832386:16 Request CBC W/AUTO DIFF WBC (05042)Indication: Hypertensive heart disease without heart failure On: 30-Nmw-055351:16 Request METABOLIC PANEL, COMPREHENSIVE (86947)Indication: Hypertensive heart disease without heart failure On: 66-Rhs-777610:16 Request LIPID PANEL (98555)Indication: Mixed hyperlipidemia On: 52-Mcb-528590:16 Request Vitamin D Hydroxy (11182)Indication: Vitamin D deficiency On: 65-Lsx-032886:15 Request VITAMIN B-12 (CYANOCOBALAMIN) (02209)Indication: B12 deficiency anemia On: 65-Wko-205453:15 Request METABOLIC PANEL, COMPREHENSIVE (62985)Indication: Fatigue On: :07 Request LIPID PANEL (49355)Indication: Mixed hyperlipidemia On: :07 Request VITAMIN B-12 (CYANOCOBALAMIN) (98846)Indication: B12 deficiency anemia On: :07 Request CBC (AUTO) ([id number])Indication: B12 deficiency anemia On: :07 Request Vitamin D Hydroxy (69090)Indication: Vitamin D deficiency On: :06 Request HgA1C , Office (40448)Indication: Diabetes mellitus type II, controlled, with no complications On: :55 Request CBC, PLATELETS & MANUAL DIFF (33661)Indication: Hypokalemia (Renamed from Decreased potassium in the blood) On: :08 Request Comments: recheck before 11-07-14 MICROALBUMIN: CREATININE RATIO ([id number]) AND ([id number])Indication: Proteinuria On: :49 Request VITAMIN B-12 (CYANOCOBALAMIN) (45373)Indication: B12 deficiency anemia On: :56 Request Vitamin D Hydroxy (19845)Indication: Vitamin D deficiency On: :56 Request CBC WITH MANUAL DIFF (16889)Indication: B12 deficiency anemia On: :55 Request METABOLIC PANEL, COMPREHENSIVE (67536)Indication: Hypertensive heart disease without heart failure On: :55 Request LIPID PANEL (03449)Indication: Mixed hyperlipidemia On: :55 Request LIPID PANEL (13318)Indication: Mixed hyperlipidemia On: :31 Request TSH ([id number])Indication: Thyroid Nodule On: :31 Request MICROALBUMIN: CREATININE RATIO (32925) AND ([id number])Indication: Diabetes mellitus type II, controlled, with no complications On: :31 Request METABOLIC PANEL, COMPREHENSIVE (45079)Indication: Diabetes mellitus type II, controlled, with no complications On: :31 Request URINALYSIS, W/ MICRO (64703)Indication: Proteinuria On: :30 Request Vitamin D Hydroxy (90720)Indication: Vitamin D deficiency On: :30 Request CBC, PLATELETS & AUT DIFF ([id number])Indication: B12 deficiency anemia On: :29 Request VITAMIN B-12 (CYANOCOBALAMIN) (81694)Indication: B12 deficiency anemia On: :29 Request HgA1C , Office ([id number])Indication: Diabetes mellitus type II, controlled, with no complications On: :03 Request TSH ([id number])Indication: Thyroid Nodule On: :39 Request LIPID PANEL (16051)Indication: Mixed hyperlipidemia On: :38 Request CBC WITH MANUAL DIFF ([id number])Indication: Diabetes mellitus type II, controlled, with no complications On: :38 Request METABOLIC PANEL, COMPREHENSIVE ([id number])Indication: Diabetes mellitus type II, controlled, with no complications On: :38 Request Vitamin D Hydroxy ([id number])Indication: Vitamin D deficiency On: :22 Request CBC, PLATELETS & AUT DIFF ([id number])Indication: B12 deficiency anemia On: 64-Mce-49245:22 Request VITAMIN B-12 (CYANOCOBALAMIN) (37731)Indication: B12 deficiency anemia On: :22 Request CBC WITH MANUAL DIFF ([id number])Indication: Diabetes mellitus type II, controlled, with no complications On: 09-Szx-98450:12 Request METABOLIC PANEL, COMPREHENSIVE (20472)Indication: Diabetes mellitus type II, controlled, with no complications On: 55-Qcy-52776:12 Request HEPATIC FUNCTION PANEL (39458)Indication: Mixed hyperlipidemia On: 46-Ezv-98622:10 Request LIPID PANEL ([id number])Indication: Mixed hyperlipidemia On: 43-Qpf-59697:10 Request VITAMIN B-12 (CYANOCOBALAMIN) ([id number])Indication: B12 deficiency anemia On: 16-Zlc-23035:02 Request TSH ([id number])Indication: Dysthymic disorder On: 78-Wcg-613316:17 Request CREATININE CLEARANCE ([id number])Indication: Proteinuria On: 97-Lsi-705921:15 Request 24 hour urine for Protein ([id number])Indication: Proteinuria On: 19-Iks-718311:15 Request VITAMIN B-12 (CYANOCOBALAMIN) (03676)Indication: B12 deficiency anemia On: 19-Hrp-529342:15 Request CCP ANTIBODY ([id number])Indication: Pain in unspecified joint On: 07-Nov-20119:47 Request LIPID PANEL (22825)Indication: Mixed hyperlipidemia On: 88-Lmy-222046:45 Request OVA & PARASITE DIR SMEAR ([id number])Indication: Diarrhea On: :52 Request LEUKOCYTE COUNT, FECAL ([id number])Indication: Diarrhea On: :52 Request Clostridium difficile Toxin A+B, EIA (97242)Indication: Diarrhea On: :52 Request HANSA CULTURE-STOOL (62731)Indication: Diarrhea On: :52 Request CBC WITH MANUAL DIFF ([id number])Indication: Hypertensive heart disease without heart failure On: 39-Ihz-536382:11 Request METABOLIC PANEL, COMPREHENSIVE (64559)Indication: Hypertensive heart disease without heart failure On: 91-Ztz-701693:11 Request LIPID PANEL ([id number])Indication: Mixed hyperlipidemia On: 91-Wmj-267441:11 Request Influenza B Ag (87840)Indication: Myalgia and myositis On: 32-Dah-43304:06 Request Influenza A Ag (46863)Indication: Myalgia and myositis On: :06 Request METABOLIC PANEL, COMPREHENSIVE (25364)Indication: Uncomplicated herpes simplex On: 29-Mqv-613180:13 Request MICROALBUMIN: CREATININE RATIO (75188) AND ([id number])Indication: Abnormal glucose tolerance test On: :32 Request METABOLIC PANEL, COMPREHENSIVE (17687)Indication: Hypertensive heart disease without heart failure On: :32 Request HEPATIC FUNCTION PANEL (66406)Indication: Mixed hyperlipidemia On: :31 Request LIPID PANEL (76944)Indication: Mixed hyperlipidemia On: :31 Request TSH ([id number])Indication: Abnormal glucose tolerance test On: :19 Request LIPID PANEL (73191)Indication: Mixed hyperlipidemia On: 10-Wsp-675429:15 Request HEPATIC FUNCTION PANEL ([id number])Indication: Mixed hyperlipidemia On: 98-Pti-522538:15 Request METABOLIC PANEL, COMPREHENSIVE (88312)Indication: Hypertensive heart disease without heart failure On: :56 Request HEPATIC FUNCTION PANEL (20001)Indication: Mixed hyperlipidemia On: :56 Request LIPID PANEL (83656)Indication: Mixed hyperlipidemia On: :56 Request MICROALBUMIN: CREATININE RATIO (23448) AND (55174)Indication: Abnormal glucose tolerance test On: :30 Request CBC WITH MANUAL DIFF ([id number])Indication: Abnormal glucose tolerance test On: :30 Request VITAMIN B-12 (CYANOCOBALAMIN) (22184)Indication: Tinnitus, unspecified laterality On: :24 Request METABOLIC PANEL, COMPREHENSIVE (40630)Indication: Hypertensive heart disease without heart failure On: :24 Request LIPID PANEL (89816)Indication: Mixed hyperlipidemia On: :24 Request URINALYSIS W/O MICRO (75557)Indication: Hypertensive heart disease without heart failure On: :12 Request TSH ([id number])Indication: Hypertensive heart disease without heart failure On: 59-Hdi-937732:12 Request CBC WITH MANUAL DIFF ([id number])Indication: Hypertensive heart disease without heart failure On: 62-Hck-773335:12 Request METABOLIC PANEL, COMPREHENSIVE (35943)Indication: Hypertensive heart disease without heart failure On: 03-Xew-383213:12 Request LIPID PANEL ([id number])Indication: Mixed hyperlipidemia On: 35-Uym-097221:12 Request CBC with manual diff ([id number])Indication: Pre-operative examination On: :30 Request Metabolic Panel, Comprehensive (21358)Indication: Pre-operative examination On: 55-Dlx-538644:30 Request Urinalysis, Office (22441)Indication: Pre-operative examination On: 12-Zeu-302156:29 Request Lipid Panel (26343)Indication: Mixed hyperlipidemia On: :52 Request Comments: in three months (approximately) TSH (35691)Indication: Hypertensive heart disease without heart failure On: :52 Request MICROALBUMIN URINE QUANT ([id number])Indication: Hypertensive heart disease without heart failure On: :52 Request METABOLIC PANEL, COMPREHENSIVE (09257)Indication: Hypertensive heart disease without heart failure On: :52 Request CBC WITH MANUAL DIFF ([id number])Indication: Hypertensive heart disease without heart failure On: :52 Request HEPATIC FUNCTION PANEL (68365)Indication: Mixed hyperlipidemia On: :52 Request LIPID PANEL (52258)Indication: Mixed hyperlipidemia On: :52 Request HEPATIC FUNCTION PANEL (00187)Indication: Mixed hyperlipidemia On: :54 Request LIPID PANEL (89655)Indication: Mixed hyperlipidemia On: :54 Request TSH (82771)Indication: pruritis On: :37 Request METABOLIC PANEL, COMPREHENSIVE (04167)Indication: pruritis On: :37 Request CBC WITH MANUAL DIFF ([id number])Indication: pruritis On: :37 Request LIPID PANEL (45226)Indication: Mixed hyperlipidemia On: :18 Request HEPATIC FUNCTION PANEL (56757)Indication: Mixed hyperlipidemia On: :18 Request HEPATIC FUNCTION PANEL (96583)Indication: Mixed hyperlipidemia On: :14 Request LIPID PANEL (97339)Indication: Mixed hyperlipidemia On: 6-Ikq-738498:14 Request Comments: 2mos Planned Encounters Medical; 3 Month FU - On: 24-Aug-2018 7:00 [facility] Margarita Drake DO, DO, Kathleen Planned Procedures ELECTROCARDIOGRAM, COMPLETE (ECG) On: 23-May-2018 Intent (64645)By: Margarita Drake DO Comments: sinus favio no acute chg Margarita GALARZA B 12 Injection, 1000 mcg (J3420)By: On: 23-May-2018 Intent Margarita Drake DO, DO, Comments: b12 1,000mcg/ml 1ml given L deltoid lot#[id number] exp: jpaige Margarita B 12 Injection, 1000 mcg (J3420)By: On: 26-Mar-2018 Intent Marlyn Roberts LPN Comments: [id number] dltdIMas TELECOM ASSISTANT B 12 Injection, 1000 mcg (J3420)By: On: 19-Feb-2018 Intent Margarita Drake DO, DO, Comments: vitamin b12 1000mcg injectionlot: [id number]: 06/2019L DELT IMpt tolerated well Margarita B 12 Injection, 1000 mcg (J3420)By: On: 07-Dec-2017 Intent Margarita Drake DO Noelle DO, Comments: 1 ml given lt arm lot [id number] exp 01/20 Margarita B 12 Injection, 1000 mcg (J3420)By: On: 10-Nov-2017 Intent Margarita Drake DO, DO, Margarita CHEST XRAY, PA & LATERAL ([id number])By: On: 26-Sep-2017 Intent Allyn Manley Aerosol Treatment (94663)By: Khanh On: 13-Sep-2017 Intent Ann Marie MCDANIEL Aerosol Treatment (81649)By: Vineet, On: 07-Sep-2017 Intent Allyn Comments: Lungs clear after aerosol treatment. B 12 Injection, 1000 mcg (J3420)By: On: 15-Aug-2017 Intent Margarita Drake DO, DO, Comments: vitamin b12 1000mcg injectionlot: [id number]: 10/2018L DELT IMpt tolerated wellAD TELECOM ASSISTANT Margarita INFUSION, NORMAL SALINE SOLUTION , On: 10-Aug-2017 Intent 1000 CC (Special Coverage Instructions Apply. See MCM: 2048) (J7030)By: Libby Horn DO Toradol Injection, 30 mg (J1885)By: On: 09-Aug-2017 Intent Libby Horn DO Comments: toradol 30mg IV push -per dr. hornlot: [id number]-PLydi: 11/2017IV push in 23g in R ACpt tolerated well. AD TELECOM ASSISTANT INFUSION, NORMAL SALINE SOLUTION , On: 09-Aug-2017 Intent 1000 CC (Special Coverage Comments: 23g inserted to R AC per first attemptpt tolerated [id number] NS infusing Instructions Apply. See MCM: 2048) (J7030)By: Stefanie Ghosh XR RIB AND CHEST LEFT (52414)By: Sergei On: 09-Aug-2017 Libby Zavala DO Comments: stat call wet read fall with left anterior inferior rib pain/sob B 12 Injection, 1000 mcg (J3420)By: On: 03-Aug-2017 Intent Visit, Nurse Comments: given - see flowsheet Dose-prefilled syringeRIGHT DLTD, IMgiven by:CIARA JarrellNVIS signed B 12 Injection, 1000 mcg (J3420)By: On: 01-Aug-2017 Intent Margarita Drake DO, DO, Comments: vitamin b12 1000mcg injectionlot: [id number]: 10/2018L DELT IMpt tolerated wellAD TELECOM ASSISTANT Margarita B 12 Injection, 1000 mcg (J3420)By: On: 26-Jul-2017 Intent Margarita Drake DO, DO, Comments: vitamin b12 1000mcg injectionlot: [id number]: 10/2018L DELT IMpt tolerated wellAD TELECOM ASSISTANT Margarita INTENSIVE BEHAVIORAL THERAPY TO On: 25-Jul-2017 Intent REDUCE CARDIOVASCULAR DISEASE RISK, INDIVIDUAL, NWLD-MS-UXMB, ANNUAL, 15 MINUTES ([id number])By: Margarita Drake DO, DO, Kathleen SCREENING DIGITAL TOMOSYNTHESIS OF On: 25-Jul-2017 Intent BREAST ([id number])By: Margarita Drake DO, DO, Kathleen B 12 Injection, 1000 mcg (J3420)By: On: 25-Jul-2017 Intent Margarita Drake DO, DO, Comments: vitamin b12 1000mcg injectionlot: [id number]: 10/2018L DELT IMpt tolerated wellAD TELECOM ASSISTANT Margarita Rocephon Injection, 1 Gm (J0696)By: On: 13-Mar-2017 Intent Libby Horn DO Radiology - Finger(s) - RightBy: Sergei On: 13-Mar-2017 Libby Zavala DO Comments: second finger rule out osteo Aerosol Treatment (94490)By: Noelle On: 23-Sep-2016 Margarita aZvala DO, DO, Kathleen Comments: albulterol .83%more a/e but more noise- inspir and expir wheeze and junky Bone Density StudyBy: Davian Mccray MD On: 12-Nov-2015 Intent MAMMOGRAM, SCREENING, BOTH BREAST On: 12-Nov-2015 Intent (23058)By: Davian Mccray MD CT - Chest (Without Contrast)By: Shazia On: 05-Nov-2015 Intent Davian ARAGON Comments: low dose DEXA SCAN AXIAL SKELETON (96061)By: On: 29-Oct-2015 Intent Shazia ARAGON, Davian Ultrasound - ThyroidBy: Shazia ARAGON, On: 29-Oct-2015 Intent Davian BILATERAL MAMMOGRAMS (95501)By: Shazia On: 29-Oct-2015 Intent Davian ARAGON B [...] MAMMOGRAM, SCREENING, BOTH BREAST On: 07-Nov-2014 Intent ([id number])By: Libby Horn DO B 12 Injection, 1000 mcg (J3420)By: On: 07-Nov-2014 Intent Sergei GALARZA Libby A Comments: lot: [id number]: 06/19Dose: 1,000 mcgSite: l dltdLocation; IMby: B 12 Injection, 1000 mcg (J3420)By: On: 08-Oct-2014 Intent Sergei DO Libby A Comments: Lot:[id number]:05/20Dose:1mlRoute:IMSite:l liangGiven By:RAMÓN signed BILATERAL MAMMOGRAMS (72891)By: Sergei On: 08-Aug-2014 Intent Libby GALARZA A INJECTION, VITAMIN B-12 On: 23-Jun-2014 Intent CYANOCOBALAMIN, UP TO 1000 MCG Comments: lot [id number] 03/19location L armroute imgiven by - msmithVIS [...] On: 21-Mar-2014 Intent HERMANN (Ankle Brachial Index) ([id number])By: On: 10-Feb-2014 Intent Fast DO, Libby A B 12 Injection, 1000 mcg (J3420)By: On: 11-Dec-2013 Intent Fast DO, Libby A Comments: Edgar dltd, [id number] flowsheetMegan CT - ChestBy: Fast DO, Libby A On: 11-Dec-2013 Intent Eprescribed prescriptions (G8553)By: On: 11-Dec-2013 Intent Fast DO, Libby A B 12 Injection, 1000 mcg (J3420)By: On: 30-Oct-2013 Intent Fast DO, Libby A Comments: lot: [id number]: 07/19site/route: Edgar del/IMamt: 1mLVIS signed when applicableChelsea, HEMSTITCHER Eprescribed prescriptions (G8553)By: On: 09-Sep-2013 Intent Rachel Leyva ELECTROCARDIOGRAM, COMPLETE (ECG) On: 27-Aug-2013 Intent (14595)By: Ann Marie Cassidy CNP SPECIMEN HNDLNG/TRNSPRT, OFFC > LAB On: 18-Jun-2013 Intent (66160)By: Ann Marie Cassidy CNP MAMMOGRAM, SCREENING, BOTH BREASTS On: 04-Jun-2013 Intent (67070)By: Sergei DO Libby A DXA, BONE DENSITY, AXIAL SKELETON On: 04-Jun-2013 Intent (89009)By: Fast DO Libby A CT - ChestBy: [...] MAMMOGRAM, SCREENING, BOTH BREASTS On: 01-Feb-2013 Intent (55083)By: Sergei DO Libby A Comments: end april CT - ChestBy: Fast DO Libby A On: 01-Feb-2013 Intent Comments: march or april B 12 Injection, 1000 mcg (J3420)By: On: 01-Feb-2013 Intent Sergei DO Libby A Eprescribed prescriptions (G8553)By: On: 01-Feb-2013 Intent Rachel Leyva B 12 Injection, 1000 mcg (J3420)By: On: 30-Oct-2012 Intent Rachel Leyva Comments: Lot:Exp:08/17Lot:[id number]:1mlRoute:imSite:L deltoidGiven by:BMY DXA, BONE DENSITY, AXIAL SKELETON On: 30-Oct-2012 Intent (28887)By: Sergei GALARZA Libby A Eprescribed prescriptions (G8553)By: On: 30-Oct-2012 Intent Rachel Leyva Nuclear Medicine - ThyroidBy: Noelle On: 24-Sep-2012 Intent DO, Margarita Noelle DO, Margarita Esophagram with 13 mmm tabletBy: On: 06-Sep-2012 Intent Noelle DO, Margarita Noelle DO, Margarita Eprescribed prescriptions ([id number])By: On: 06-Sep-2012 Intent Allyn Prajapati LPN B 12 Injection, 1000 mcg (J3420)By: On: 30-Jul-2012 Intent Sergei GALARZA Libby A Comments: Lot #:[id number] date: mount given: 1mlRoute: IMSite given: left deltoidGiven by: KADY Rehman CT - ChestBy: Sergei GALARZA Libby A On: 30-Jul-2012 Intent Ultrasound - ThyroidBy: Fast DO, On: 30-Jul-2012 Intent Libby A Eprescribed prescriptions (G8553)By: On: 30-Jul-2012 Intent Rachel Leyva Eprescribed prescriptions (G8553)By: On: 05-Jul-2012 Intent lAo Allyn ORTIZ MAMMOGRAM, SCREENING, BOTH BREASTS On: 23-Apr-2012 Intent (38717)By: Libby Horn DO CT - Chest (IV Contrast Needed)By: On: 21-Nov-2011 Intent Libby Horn DO Comments: thi is a follow up CT for abnormal ct chest in april 2011 TDAP VACCINE >7 IM (29985)By: On: 25-Jul-2011 Intent Rachel Leyva Comments: Lot:[id number]:07/21/13Amt:prefilledRoute:IMSite:left deltGiven By: ANGEL Anthony CT - Abdomen & PelvisBy: Sergei GALARZA, On: 25-Jul-2011 Intent Libby Ballard Comments: stat call wet read FLU VAC, SPLIT, >3 YEARS, INTRAMUSC On: 25-Jul-2011 Intent (23806)By: Rachel Leyva Comments: pt refuses CT - ChestBy: Libby Horn DO On: 20-Apr-2011 Intent Comments: pe protocol Ultrasound - ThyroidBy: Sergei GALARZA, On: 04-Apr-2011 Intent Libby Ballard Comments: to be done in 6 months Spirometry (43876)By: Libby Horn DO On: 16-Mar-2011 Intent A Comments: good effort and curve normal Pulse Oximetry (99696)By: Sergei GALARZA, On: 16-Mar-2011 Intent Libby Ballard Comments: 97% EKG (04260)By: Libby Horn DO On: 16-Mar-2011 Intent Comments: [...] MAMMOGRAM, SCREENING, BOTH BREASTS On: 17-Jan-2011 Intent (66390)By: Libby Horn DO Pulse Oximetry (19423)By: Khanh MCDANIEL, On: 14-Jun-2010 Intent Reema Aerosol Treatment (77145)By: Khanh On: 14-Jun-2010 Intent Ann Marie MCDANIEL DXA, BONE DENSITY, AXIAL SKELETON On: 23-Dec-2009 Intent (55026)By: Libby Horn DO MAMMOGRAM, SCREENING, BOTH BREASTS On: 23-Dec-2009 Intent (10604)By: Libby Horn DO A EKG (06875)By: Rachel Leyva On: 23-Dec-2009 Intent Comments: ekg- 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 no change normal axis MAMMOGRAM, SCREENING, BOTH BREASTS On: 25-Nov-2008 Intent (93230)By: Libby Horn DO EKG (60096)By: Libby Horn DO On: 25-Nov-2008 Intent Comments: ekg showed normal sinus with no lateral t wave inversioon and poor rwave progression- twave inversion anteriolry unchanged Spirometry (45933)By: Libby Horn DO On: 25-Nov-2008 Intent A Radiology - Chest- PA and LatBy: Fast On: 25-Nov-2008 Intent Libby GALARZA Pulse Oximetry (93578)By: Sergei GALARZA, On: 25-Nov-2008 Intent Libby Ballard Bio Z (69356)By: Libby Horn DO On: 14-May-2008 Intent Comments: high svr [...] On: 09-Oct-2006 Intent Libby GALARZA Bio Z (97661)By: Libby Horn DO On: 09-Oct-2006 Intent Comments: high svr and low normal cardiac output- so will add in [facility] Planned Medications INFUSION, NORMAL SALINE [...] without anemia Hypomagnesemia : DISCONTINUED - MAGNESIUM (59384) Indication: Hypomagnesemia Macrocytosis without anemia : DISCONTINUED - METABOLIC PANEL, BASIC (62021) Indication: Macrocytosis without anemia Nonsmoker : How [...] Mixed hyperlipidemia : DISCONTINUED - LIPID PANEL (94548) Indication: Mixed hyperlipidemia Mixed hyperlipidemia : DISCONTINUED - METABOLIC PANEL, COMPREHENSIVE (13467) Indication: Mixed hyperlipidemia Mixed hyperlipidemia : DISCONTINUED - LIPID PANEL (65407) Indication: Mixed hyperlipidemia Diabetes mellitus type 2, uncontrolled, without complications : DISCONTINUED - METABOLIC PANEL, COMPREHENSIVE (49862) Indication: Diabetes mellitus type 2, uncontrolled, without [...] Advance Directives Name Dates Details Immunization Registry [place] - Effective on Effective: 25-Jul-201707/25/2017. Expiration date [...] failure, Vitamin D deficiency (268.9), CAD in [place] [facility] Office Visit On: [...] severe, Vitamin D deficiency (268.9), CAD in [place] [facility] Office Visit On: [...] bronc hitis, post viral cough-given z-pack and ewcapbezfx-Dwkid-mqrzm not feeling good- fatigue, fever, chills, high [...] The patient does have durable power of deputy county attorney and living will. The patient has noticed nothing from the geriatic depression scale. Other providers contributing to the patient's care are space studies faculty member, gastrologist and control valve mechanic. Encounter Diagnosis: BMI 26.0-26.9,adult, Hypomagnesemia, Nonsmoker, Pulmonary [...] issues sent to Transitional care unit at [place]. Saw Dr. Greene in trasitional care, had [...] for xofran.Told it was colitis. Admitted to [facility] and had monitoring then cath found 25% [place] cardio myopthy, placed on carvediolol 6.25mg Recently went to [facility] seen after Nonstemi, and low EF 25% [...] is transitioning into care from a hospital ([facility] 10/23 to 10/27 pneumonia) and a [...] - Reason for hospitalization note: (was in [facility] er sun for bronchitis I used [...] The patient does have durable power of deputy county attorney and living will. The patient has noticed lack of energy. Other providers contributing to the patient's care are incinerator attendant and other: (eye exam - 1 year [...] the fatigue is because traveling alot for [facility] and up late and trial coming upEncounter [...] and she hasnt been back to [facility]- us reviewed and told her to [...] Date: (02/10/14). Note for Follow up to [facility] laboratory test results: and MRI from 02/27/14 [...] evaluation: Surgery is with Dr. Yepez in [place]- [phone] and fax- [phone]- had stimulator removed- then had mri of [...] pressure (and trying to use hands or force dispatcher anything). There is no radiation. Associated symptoms [...] bp high and said becuase son in assisted, [ADDITIONAL REASON] Follow up, Laboratory Test Results [...] better- couldnt get insurance to pay for Golgi- [employer] works for her- thinks she needs to [...]
--- OUTSIDE RECORDS SUMMARY | 2018-10-01 09:43 | XMS RPT_ITS | Continuity of Care Document ---
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) Status: Active Canker sore [...] streudel for braekfast and fish sandwich at [facility] Status: Active Dysphagia, unspecified dysphagia (787.20) Comments: awaiting bx Status: Active Dysthymic disorder (F34.1, 300.4) Status: Active Elevated platelet count (R79.89, 790.6) Status: Active Encounter for annual general medical examination with abnormal findings in adult (Z00.01, V70.0) Status: Active Encounter for screening for malignant neoplasm of colon (Renamed from Special screening for malignant neoplasms, colon) (Z12.11, V76.51) Comments: last scope 03/20 [facility] Status: Active Encounter for screening mammogram [...] d ay (can buy a pedometer at [employer]), -5 days of week of 30 mins [...] 10-Apr-2018 Active VITAMIN C & E COMBINATION, 132-211LX-ISYH (Oral Capsule) 1 (one) Capsule Capsule qd [...] : 09-Apr-2018 Inactive Comments:Sixty script given to dzsshvkW87.0 AUGMENTIN, 875-125MG (Oral Tablet) 1 Tablet bid [...] : 28-Jan-2016 End : 07-Feb-2016 Inactive NYSTATIN, 914857UIJU/GM (External Cream) apply Cream bid to affected [...] Start : 25-Oct-2007 Inactive VITAMIN D (ERGOCALCIFEROL), 25413RCTZ (Oral Capsule) 1 Capsule q weekly for [...] Quantity: 10 {Vial} Refills: 3 Ordered:02-Sep-2016 Slarb STACK CLERK, Marlyn Start : 21-Mar-2014 End : 02-Sep-2016 [...] Quantity: 4 {Tablet} Refills: 0 Ordered:07-Oct-2016 Slarb STACK CLERK, Marlyn Start : 23-Sep-2016 End : 07-Oct-2016 [...] Quantity: 30 {Tablet_ER} Refills: 3 Ordered:14-May-2008 Sergei GAALRZALibby Start : 14-May-2008 End : 14-May-2008 Discontinued [...] as of 11-Dec-2013 Pain (R52, 780.96) Comments: brandni on neurontin Status: Resolved as of 09-Sep-2013 Poison abner (L23.7, 692.6) Status: Resolved as of 05-Jun-2009 Pre-operative examination (Z01.818, V72.84) Status: Inactive as of 21-Mar-2014 Pre-operative examination (Z01.818, V72.84) Status: Inactive as of 21-Mar-2014 Pre-operative general physical examination (Z01.818, V72.83) Comments: ekg at [facility] with records from recent hospitalization Status: [...] (R06.02, 786.05) Comments: See [facility] scanned document Dr Munguia saw sibilia- [...] and Obrych, surgical decompression /fusion c3-c6- 2013- [facility] Completed Date Value Details 07-May-2018 Discharge Instruction Result: Comments: See Note; NOTES: [facility] Medical Records Department [address] [place] [address] Discharge Instruction 05/07/18 0931 MR#: [id number] Acct: [id number] Name: Radha MAHARAJ Rep #: [id number] : 1945 72 From: Parminder Blanco MD [...] Department Summary Result: Comments: See Note; NOTES: [facility] Medical Records Department [address] [place] [address] Emergency Department Summary 05/07/18 0838 MR#: [id number] Acct: [id number] Name: MAR MAHARAJ Rep #: [id number] : 1945 72 From: Parminder Blanco MD PCP: Margarita Drake DO Status: DEP ER - ER Visit Summary Date of Service: 05/07/18 Chief Complaint: Nausea, vomiting and diarrhea History of Present Illness: The patient is a 72 F has a past medical history of valvular heart disease, hypertension, cholesterol spinal stenosis and multiple surgeries. Patient states she zoran t to [employer] game on Monday. And she developed [...] Dehydration This note was ge nerated with [employer] / Net[employer]er dictation software. It may contain incorrect words, [...] problems, contact your Primary Care Provider. Call [facility] ([phone]) or report to the closest Emergency Room. Call 911 if necessary. 05/07/18 1545 <Elec tronically signed by Parminder Blanco MD> Date Parminder Blanco MD Cosigner Signature (If Indicated): Date CC: Margarita Drake DO 22-Feb-2018 Downtime Report Result: Comments: See Note; NOTES: [facility] Medical Records Department [address] [place] [address] Downtime Report MR#: [id number] Acct: [id number] Name: MAR MAHARAJ Rep #: [id number] : 1945 72 From: Gilson Washington PCP: Margarita Drake DO Status: REG CLI This patient was seen during an EMR downtime February 05, 2018 - February 12, 2018. This patient may have a combination o f paper and electronic documentation or all paper documentation. All documentation is viewable within the e-chart portion of [employer] for each patient visit. 08-Feb-2018 Spine Lumbar (Routine) Result: Comments: See Note; NOTES: [facility] Imaging Services [address] [place] [address] Spine Lumbar (Routine) MR#: [id number] Acct: [id number] Name: MAR MAHARAJ Rep #: [id number] : 1945 F 72 From: Dylan Donato MD PCP: Margarita Drake DO Status: REG CLI Study: Spine Lumbar (Routine) Date of Exam: 02/08/18 Exam# [id number] Ordering Dr: De Yepez STUDY: MRI LUMBAR [...] , CC: NICO YEPEZ; Margarita Drake DO Animal Control Specialist: Signed 08-Feb-2018 Spine Lumbar without Contrast Result: Comments: See Note; NOTES: [facility] Imaging Services [address] [place] [address] Spine Lumbar without Contrast MR#: [id number] Acct: [id number] Name: MAR MAHARAJ Rep # : [id number] : 1945 F 72 From: Robles Mejia PCP: Margarita Drake DO Status: REG CLI Study: Spine Lumbar without Contrast Date of Exam: 02/08/18 Exam# [id number] Ordering Dr: De Yepez STUDY: C T [...] paraspinous soft tissue structures. ORDE R #: [id number] CT/Spine Lumbar without Contrast IMPRESSION: Multilevel degenerative change discussed above. Hardware as described. Right L3 pedicle screw appears broken. Grade 1 anterolisthesis of L4 on L5. Laminectomies. Demineralization. Electronically Signed: Robles Mejia DO at 10:57 EDT , Service support , CC: DE Drake DO Animal Control Specialist: Signed 09-Jan-2018 Pulmonary Visit Report Result: Comments: See Note; NOTES: [facility] [address] [place] [address] OFFICE VISIT Date of Service: 01/09/18 MR#: [id number] Acct: [id number] Name: MAR HOLLIDAY Rep #: [id number] : 1945 Provider: Adair Wu MD Age/Sex: 72/F [place] [facility] Status: Signed Assessment AND Plan Problems 1. [...] 6 M FU Chief Complaint: Follow up Radiology Scheduler Required: No DME Vendor: [employer] Accompanie d [...] 10/12/17 [History Confirmed 12/03/17] Hydrocodone Bitart/Apap 5-325 [Amboy 5MG-325MG] 1 tab PO Q6H PRN PRN 3 Days #10 tab 12/03/17 [Rx] sodium chloride 0.65 % nasal spray aerosol 2 spray INTRANASAL QHS ml 01/09/18 [History Confirmed 01/09/18] PFSH Medical History Hyperlipidemia (Chronic) Elevated blood pressure reading without diagnosis of hypertension (Chronic) [place] [facility] (current) drug therapy (Chronic) Nonrheumatic aortic (valve) [...] applicable) CC: Ann Marie Cassidy DIRECTOR OF PHYSICIAN PRACTICES; Margarita Drake 03-Dec-2017 Emergency Department Summary Result: Comments: See Note; NOTES: [facility] Medical Records Department [address] [place] [address] Emergency Department Summary 12/03/17 1656 MR#: [id number] Acct: [id number] Name: MAR MAHARAJ Rep #: [id number] : 1945 72 From: Arya Torrez MD [...] blunt trauma This note was generated with Imp[employer]Pages dictation software. It may contain incorrect words, spelling, and punctuation that were not noted in review of the chart prior to signing ED Disposition - Plan for ED Patient: Disposition: Home or Assisted Living Chief Complaint: Chest Other Instructions: ED Contusion Vs Minor Fx Rib Prescriptions: Hydrocodone Bitart/Apap 5-325 [Amboy 5MG-325MG] 1 tab PO Q6H PRN PRN 3 Days #10 tab PRN Reason: Alena n Referrals: Margarita Drake, [Primary Care Provider] - 1 Week if not improving What to do if you have Problems For any increased pain, shortness of breath, bleeding, nausea or vomiting, chest pa in, or any unexpected problems, contact your Primary Care Provider. Call [facility] ([phone]) or report to the closest Emergency Room. Call 911 if necessary. 12/03/17 1706 <Electron ically signed by Arya Torrez MD> Date Arya Torrez MD Cosigner Signature (If Indicated): Date CC: Margarita Drake DO 03-Dec-2017 Chest PA and Lateral Result: Comments: See Note; NOTES: [facility] Imaging Services [address] [place] [address] Chest PA and Lateral MR#: [id number] Acct: [id number] Name: MAR MAHARAJ Rep #: [id number] : 1945 F 72 From: Lotus Anthony MD PCP: Margarita Drake DO Status: DEP ER Study: Chest PA and Lateral Date of Exam: 12/03/17 Exam# [id number] Ordering Dr: Arya Torrez MD STUDY: X-RAY [...] CC: Margarita Drake DO; Arya Torrez MD Animal Control Specialist: Signed 18-Oct-2017 SCREENING MAMM (CAD), BILAT Result: Comments: See Note; NOTES: [facility] Imaging Services [address] [place] [address] SCREENING MAMM (CAD), BILAT MR#: [id number] Acct: [id number] Name: MAR MAHARAJ Rep #: [id number] : 1945 F 72 From: Florian Valenzuela MD PCP: Margarita Drake DO Status: REG CLI Study: SCREENING MAMM (CAD), BILAT Date of Exam: 10/18/17 Exam# [id number] Ordering Dr: Alysia Drake DO MAMMOGRAPHY - [...] delay biopsy of a clinically suspicious abnormality. [id number] Electronically Signed: Florian Howard i, MD at 13:51 EST Tel [phone], Service support , CC: Margarita Drake DO Animal Control Specialist: Signed 13-Oct-2017 Cardiology Visit Report Result: Comments: See Note; NOTES: [facility] [address] [place] [address]. [address] [place] [address] OFFICE VISIT Date of Service: 10/13/17 MR#: [id number] Acct: [id number] Name: MAR MAHARAJ Rep #: [id number] : 1945 Provider: Sergio Lawler MD Age/Sex: 72/F [place] [facility] Status: Signed HPI HPI Chief [...] reading without diagnosis of hypertension (Chronic) Other [place] [facility] [place] (current) drug ther apy (Chronic) Nonrheumatic aortic (valve) insufficiency (Chronic) Nonrheumatic tricuspid (valve) insufficiency (Chronic) Other secondary pulmonary hypertension (Chronic) Nonischemic cardiomyopathy (Flask Carrier deangelo) Fatigue (Chronic) Hx pulmonary embolism [...] AND Plan 1. Coronary artery disease involving kaguy[place] coronary artery of kaguy[place] heart without angina pectoris I25.10 Mild Plan [...] vis,est,level 3 Diagnoses Coronary artery disease involving kaguy[place] coronary artery of [place]aguy[place] heart without angina pectoris I25.10 Coronary Disease-Associated Artery/Lesion type: kaguy[place] artery [place] vs. transplanted heart: kaguy[place] heart Associated angina: without angina Essential hyperten tamika I10 Hypertension type: essential hypertension Coding Level of Care Code Off vis,est,level 3 Diagnoses Coronary artery disease involving k[place]uy[place] coronary artery of [place] heart without angina pect wilber I25.10 Coronary Disease-Associated Artery/Lesion type: [place] artery [place] vs. transplanted heart: [place]uy[place] heart Associated angina: without angina Essential hypertension I10 Hypertension type: esse ntial hypertension 10/13/17 1546 <Electronically signed by eSrgio Lawler MD> Date Sergio Lawler MD Cosigner Signature: Date _ (if applicable) CC: Margarita Drake DO 26-Sep-2017 Chest PA and Lateral Result: Comments: See Note; NOTES: [facility] Imaging Services [address] [place] [address] Chest PA and Lateral MR#: [id number] Acct: [id number] Name: MAR MAHARAJ Rep #: [id number] : 1945 F 72 From: Quinn Pringle PCP: Margarita Drake DO Status: REG CLI Study: Chest PA and Lateral Date of Exam: 09/26/17 Exam# [id number] Ordering Dr: Allyn Manley DIRECTOR OF PHYSICIAN PRACTICES-C STUDY: X-RAY C HEST REASON FOR EXAM: [...] , CC: HUANG Manley; Margarita Drake DO Animal Control Specialist: Signed 22-May-2017 History and Physical Exam Result: Comments: See Note; NOTES: [facility] Medical Records Department [address] [place] [address] History and Physical 05/22/17 1809 MR#: [id number] Acct: [id number] Name: RUDY MAHARAJ Rep #: [id number] : 1945 71 From: Edward Chao DO [...] knee (Chronic) Sinusitis, chronic (Chronic) Takotsubo cardiomyopathy (Flask Carrier deangelo) chairi malformations/p posterior decompr (Chronic) [...] 7 back surgeries Psychiatric History: Anxiety, Depression 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 Call Esper[facility] barnard ([phone]) or report to the closest Emergency Room. Call 911 if necessary. 05/22/17 1710 <Electronically signed by Angelo William MD> Date Angelo William MD Cosigner Signature (If Indicated): Date CC: Ann Marie Cassidy 22-May-2017 Brain/Head without Contrast Result: Comments: See Note; NOTES: [facility] Imaging Services [address] [place] [address] Brain/Head without Contrast MR#: [id number] Acct: [id number] Name: MAR MAHARAJ Rep #: [id number] : 1945 F 71 From: Dorothy Barber MD PCP: Ann Marie Cassidy Status: REG ER Study: Brain/Head without Contrast Date of Exam: 05/22/17 Exam# [id number] Ordering Dr: Angelo William MD STUDY : [...] CC: Ann Marie Cassidy; Angelo William MD Animal Control Specialist: Signed 22-May-2017 Chest 1 View (Portable) Result: Comments: See Note; NOTES: [facility] Imaging Services [address] [place] [address] Chest 1 View (Portable) MR#: [id number] Acct: [id number] Name: MAR MAHARAJ Rep #: [id number] : 1945 F 71 From: Dorothy Barber MD PCP: Ann Marie Cassidy Status: REG ER Study: Chest 1 View (Portable) Date of Exam: 05/22/17 Exam# [id number] Ordering Dr: Angelo William MD STUDY: X-RAY [...] CC: Ann Marie Cassidy; Angelo William MD Animal Control Specialist: Signed 17-May-2017 Emergency Department Summary Result: Comments: See Note; NOTES: [facility] Medical Records Department [address] [place] [address] Emergency Department Summary 05/17/17 1543 MR#: [id number] Acct: [id number] Name: MAR MAHARAJ Rep #: [id number] : 1945 71 From: Tab Peacock MD [...] problems, contact your Primary Care Provider. Call [facility] ([phone]) or report to the closest Emergency Room. Call 911 if necessary. 05/17/17 1652 <Electronically signed b austin Peacock MD> Date Tab Peacock MD Cosigner Signature (If Indicated): Date CC: Ann Marie Cassidy 28-Apr-2017 Emergency Department Summary Result: Comments: See Note; NOTES: [facility] Medical Records Department [address] [place] [address] Emergency Department Summary 04/28/17 1059 MR#: [id number] Acct: [id number] Name: MAR MAHARAJ Rep #: [id number] : 1945 71 From: Tab Peacock MD [...] Primary Care Provider. Call [facility] ([phone]) or report to the closest Emergency Room. Call 911 if necessary. 04/28/17 1306 <Electronically signed by Tab Peacock MD> Date Tab Peacock MD Cosigner Signature (If Indicated): Date CC: Ann Marie Cassidy 28-Apr-2017 Chest 1 View (Portable) Result: Comments: See Note; NOTES: [facility] Imaging Services [address] [place] [address] Chest 1 View (Portable) MR#: [id number] Acct: [id number] Name: MAR MAHARAJ Rep #: [id number] : 1945 F 71 From: Sekou Bose DO PCP: Ann Marie Cassidy Status: REG ER Study: Chest 1 View (Portable) Date of Exam: 04/28/17 Exam# [id number] Ordering Dr: Tab Peacock MD STUDY: X-RAY [...] CC: Ann Marie Cassidy; Tab Peacock MD Animal Control Specialist: Signed 12-Apr-2017 Echocardiogram Complete Result: Comments: See Note; NOTES: [facility] Cardiovascular Services [address] [place] [address] Echo Complete 04/12/17 1150 MR#: [id number] Acct: [id number] Name: MAR MAHARAJ Rep #: [id number] : 1945 71 From: Sergio Lawler MD Attending Dr: Nuris ARAGON,Sergio Status: REG CLI Ordering Dr: Sergio Lawler MD Date: 04/12/17 Location: [facility] Sex: F C Admitted: Reason For [...] Dictated: 04/12/17 1 150 Date Transcribed: 04/12/171648 Animal Control Specialist: Signed 13-Mar-2017 Finger(s) Min 2 Views Result: Comments: See Note; NOTES: [facility] Imaging Services [address] [place] [address] Verdana 4d Finger(s) Min 2 Views MR#: [id number] Acct: [id number] Name: MAR MAHARAJ Katy p #: [id number] : 1945 F 71 From: Maldonado Pablo DO PCP: Ann Marie Cassidy Status: REG CLI Study: Finger(s) Min 2 Views Date of Exam: 03/13/17 Exam# [id number] Ordering Dr: Libby Mai DO STUDY: X-RA [...] Maldonado DO Samy at 22:01 EDT Tel [phone], Service support , CC: Ann Marie Mai DO Animal Control Specialist: Signed 15-Feb-2017 Cerv Spine 4 or 5 Views Result: Comments: See Note; NOTES: [facility] Imaging Services [address] [place] [address] Verdana 4d Cerv Spine 4 or 5 Views MR#: [id number] Acct: [id number] Name: MAR MAHARAJ Rep #: [id number] : 1945 F 71 From: Vitaly Turner MD PCP: Ann Marie Cassidy Status: REG CLI Study: Cerv Spine 4 or 5 Views Date of Exam: 02/15/17 Exam# [id number] Ordering Dr: De Yepez STUDY: X -RAY [...] Service support , CC: Ann Marie YEPEZ Animal Control Specialist: Signed 14-Feb-2017 Spine Lumbar (Routine) Result: Comments: See Note; NOTES: [facility] Imaging Services [address] [place] [address] Anju 4d Spine Lumbar (Routine) MR#: [id number] Acct: [id number] Name: MAR MAHARAJ ep #: [id number] : 1945 F 71 From: Dylan Donato MD PCP: Ann Marie Cassidy Status: REG CLI Study: Spine Lumbar (Routine) Date of Exam: 02/14/17 Exam# [id number] Ordering Dr: Abdiel Betts MD LORENA DY: [...] CC: Ann Marie Cassidy; Abdiel Betts MD Animal Control Specialist: Signed 22-Jan-2017 Abdomen/Pelvis without Cont Result: Comments: See Note; NOTES: [facility] Imaging Services [address] [place] [address] Verdana 4d Abdomen/Pelvis without Cont MR#: [id number] Acct: [id number] Name: JOHN MAHARAJ Rep #: [id number] : 1945 F 71 From: Jeb Piedra MD PCP: Ann Marie Cassidy Status: REG ER Study: Abdomen/Pelvis without Cont Date of Exam: 01/22/17 Exam# [id number] Ordering Dr: Stacy Corey MD STUDY: CT [...] CC: Ann Marie Cassidy; Noelle Corey MD Animal Control Specialist: Signed 25-Dec-2016 Venous Duplex Lower Extremity Result: Comments: See Note; NOTES: [facility] Cardiovascular Services [address] [place] [address] Venous Duplex US, Unilateral 12/23/16 1042 MR#: [id number] Acct: [id number] Name: MAR DEAN Rep #: [id number] : 1945 71 From: David Hawthorne MD [...] Date Dictated: 12/23/16 1042 Date Transcribed: 12/25/161936 Animal Control Specialist: Signed 19-Dec-2016 Chest 1 View (Portable) Result: Comments: See Note; NOTES: [facility] Imaging Services [address] [place] [address] Verdana 4d Chest 1 View (Portable) MR#: [id number] Acct: [id number] Name: MAR MAHARAJ Rep #: [id number] : 1945 F 71 From: Alfa Bettencourt MD PCP: Ann Marie Cassidy Status: REG ER Study: Chest 1 View (Portable) Date of Exam: 12/19/16 Exam# [id number] Ordering Dr: Edin Rodriguez MD STUDY: X- [...] CC: Ann Marie Cassidy; Edin Rodriguez MD Animal Control Specialist: Signed 19-Dec-2016 Abdomen/Pelvis without Cont Result: Comments: See Note; NOTES: [facility] Imaging Services [address] [place] [address] Verdana 4d Abdomen/Pelvis without Cont MR#: [id number] Acct: [id number] Name: JOHN MAHARAJ Rep #: [id number] : 1945 F 71 From: Alfa Bettencourt MD PCP: Ann Marie Cassidy Status: REG ER Study: Abdomen/Pelvis without Cont Date of Exam: 12/19/16 Exam# [id number] Ordering Dr: Edin Rodriguez MD S KARINEDY: [...] CC: Ann Marie Cassidy; Edin Rodriguez MD Animal Control Specialist: Signed 15-Dec-2016 Emergency Department Summary Result: Comments: See Note; NOTES: [facility] Medical Records Department [address] [place] [address] Emergency Department Summary MR#: [id number] Acct: [id number] Name: JOHN MAHARAJ Rep #: [id number] : 1945 71 From: Shon Amaya MD [...] pain SHON AMAYA MD T: RUFUS JOB: [id number] 12/15/16 1522 <Electronically signed by Shon Amaya MD> Date Shon Amaya MD Cosigner Signature (If Indicated): Date CC: Ann Marie Cassidy Date Dictated: 12/13/162342 Date Transcribed: 12/13/162342 Animal Control Specialist: Signed 15-Dec-2016 12 Lead Electrocardiogram Result: Comments: See Note; NOTES: [facility] Cardiovascular Services [address] [place] [address] 12 Lead EKG 12/13/161602 MR#: [id number] Acct: [id number] Name: CAROL ANNMARSUDHA Burns p #: [id number] : 1945 71 From: Astrid Merlos MD [...] undetermined Abnormal ECG Confirmed by ASTRID MERLOS ([id number]), photography editor CHRISTIAN WASHINGTON ([id number]) on 017 1:15:30 PM Referred By: JOSE LUIS Confirmed By:ASTRID MERLOS 12/15/16 1315 Date Astrid Merlos MD CC: Ann Marie Cassidy Date Dictated: 12/13/16 1603 Date Transcribed: 12/13/161602 Animal Control Specialist: Signed 14-Dec-2016 Venous Duplex Lower Extremity Result: Comments: See Note; NOTES: [facility] Cardiovascular Services [address] [place] [address] Venous Duplex US, Unilateral 12/13/16 1612 MR#: [id number] Acct: [id number] Name: MAR DEAN Rep #: [id number] : 1945 71 From: Rj Cleary MD [...] Date Dictated: 12/13/16 1612 Date Transcribed: 12/14/16602 Animal Control Specialist: Signed 13-Dec-2016 Discharge Instruction Result: Comments: See Note; NOTES: [facility] Medical Records Department [address] [facility] [place] [address] Discharge Instruction 12/13/16 190 MR#: [id number] Acct: [id number] Name: CAROL ANNRadhaNellie Muñoz Rep #: [id number] : 1945 71 From: Shon Amaya MD [...] your Primary Care Provider. Call [facility] ([phone]) or report to the closest Emergency Room. Call 911 if necessary. 12/13/162044 <Electronically signed by Shon Amaya MD&amp ;#62; Date Shon Amaya MD Cosigner Signature (If Indicated): Date CC: Ann Marie Cassidy 13-Dec-2016 Chest 1 View (Portable) Result: Comments: See Note; NOTES: [facility] Imaging Services [address] [place] [address] Verdana 4d Chest 1 View (Portable) MR#: [id number] Acct: [id number] Name: MAR MAHARAJ Rep #: [id number] : 1945 F 71 From: Trent Arias MD PCP: Ann Marie Cassidy Status: REG ER Study: Chest 1 View (Portable) Date of Exam: 12/13/16 Exam# [id number] Ordering Dr: Shon Amaya MD STUDY: X-RAY [...] MD at 17:07 EDT , Service support [phone], CC: Ann Marie Cassidy; Shon Amaya MD Animal Control Specialist: Signed 13-Dec-2016 Abdomen/Pelvis W IV Cont ONLY Result: Comments: See Note; NOTES: [facility] Imaging Services [address] [place] [address] Verdana 4d Abdomen/Pelvis W IV Cont ONLY MR#: [id number] Acct: [id number] Name: LILI MAHARAJ Rep #: [id number] : 1945 F 71 From: Trent Arias MD PCP: Ann Marie Cassidy Status: REG ER Study: Abdomen/Pelvis W IV Cont ONLY Date of Exam: 12/13/16 Exam# [id number] Ordering Dr: Shon Amaya MD STUDY: CT [...] MD at 18:25 EDT , Service support [phone], CC: Ann Marie Cassidy; Shon Amaya MD Animal Control Specialist: Signed 15-Nov-2016 History and Physical Exam Result: Comments: See Note; NOTES: [facility] Medical Records Department [address] [place] [address] History and Physical 11/09/16 1003 MR#: [id number] Acct: [id number] Name: Radha MAHARAJ Rep #: [id number] : 1945 71 From: Glenn Ro PCP: Ann Marie Cassidy Status: PRE IN Location: [facility] DATE OF SERVICE: 11/22/2016 This is Glenn [...] in 2003, Dr. Darien Avina, [facility]. 2. Hysterectomy. 3. Appendectomy. 4. Cholec ystectomy. 5. Brain surgery x2 Arnold-Chiari malformation. 6. Carpal tunnel bilaterally. 7. Cervical surgery, December 2013 at [place]. 8. Right total knee arthroplasty on August 19, 2014, Dr. Darien Avina , [facility]. 9. Laminectomy 2000, instrumentation lumbar fusion. 10. Right total hip arthroplasty in 2013, revision assistive devices. The patient admits to full upper dentures. Denies glasses or hearing aids. SOCIAL HISTORY: The patient is retired, works part-time. Denies tobacco use, denies alcohol use, denies illicit drug use. REVIEW OF SYSTEMS: Documented in the [facility] medical hi story sheet, please [...] of left knee dated October 17, 2016, [facility], weightbearing, AP, tunnel, sunrise, lateral [...] the hospital. YADIRA Narvaez T: RUFUS JOB: [id number] 11/15/16 0839 <Electronically signed by Glenn Ro > Date: Time: Glenn Ro CC: Ann Marie Cassidy; Glenn Ro Date Dictated: 11/09/16 1003 Date Transcribed: 7 1003 Animal Control Specialist: Signed ____ I have re-examined the patient. There are no clinical changes since date of exam. ____ See Progress Notes for Changes ____ Dictated on Admission Date: ___ Time: Signature: 24-Oct-2016 History and Physical Exam Result: Comments: See Note; NOTES: [facility] Medical Records Department [address] [place] [address] History and Physical 10/19/16 1537 MR#: [id number] Acct: [id number] Name: Radha MAHARAJ Rep #: [id number] : 1945 71 From: Glenn Ro PCP: Ann Marie Cassidy Status: PRE IN Location: [facility] DATE OF SERVICE: 10/25/2016 This is YADIRA [...] a previous right total knee arthroplasty in [facility] er 2013, is very pleased [...] 7. Cervical surgery in ril 2013 in [place]. 8. Right total knee arthroplasty on August [...] use. REVIEW OF SYSTEMS: Documented in the [facility] medical history sheet. Please refer [...] X-rays of l eft knee dated 10/17/2016, [facility], weightbearing, AP, tunnel, [...] Ro Date Dictated: 10/19/161536 Date Transcribed: 10/19/161536 Animal Control Specialist: Toni igned ____ I have re-examined the patient. There are no clinical changes since date of exam. ____ See Progress Notes for Changes ____ Dictated on Admission Date: Time: Sig nature: 23-Oct-2016 Chest PA and Lateral Result: Comments: See Note; NOTES: [facility] Imaging Services [address] [place] [address] Verdana 4d Chest PA and Lateral MR#: [id number] Acct: [id number] Name: MAR MAHARAJ Rep #: [id number] : 1945 F 71 From: Heraclio Meredith MD PCP: Ann Marie Cassidy Status: PRE ER Study: Chest PA and Lateral Date of Exam: 10/23/16 Exam# [id number] Ordering Dr: Edin Horton MD STUDY: X-RAY [...] MD at 14:44 EST , Service support [phone], CC: Mary Cassidy; Edin Horton MD Animal Control Specialist: Signed 23-Sep-2016 Echocardiogram Complete Result: Comments: See Note; NOTES: [facility] Cardiovascular Services [address] [place] [address] Echo Complete 09/23/16 1311 MR#: [id number] Acct: [id number] Name: MAR MAHARAJ Rep #: [id number] : 1945 71 From: Sergio Lawler MD [...] Dictated: 09/23/16 1311 Date Transcribed: 09/23/16 1521 Animal Control Specialist: Signed 21-Sep-2016 12 Lead Electrocardiogram Result: Comments: See Note; NOTES: [facility] Cardiovascular Services [address] [place] [address] 12 Lead EKG 09/18/16 1204 MR#: [id number] Acct: [id number] Name: MAR MAHARAJ Katy p #: [id number] : 1945 71 From: Cade Harrison MD [...] ECG Confirmed by OMAR ARAGON, CADE ([id number]), photography editor CHRISTIAN WASHINGTON ([id number]) on 09/21/2016 1:40:15 PM Referred By: FLORIN Confirmed By:CADE HARRISON MD 09/21/16 1340 Date Cade Harrison MD CC: Ann Marie Cassidy Date Dictated: 09/18/16 1204 Date Transcribed: 09/18/16 1204 Animal Control Specialist: Signed 20-Sep-2016 Emergency Department Summary Result: Comments: See Note; NOTES: [facility] Medical Records Department [address] [place] [address] Emergency Department Summary MR#: [id number] Acct: [id number] Name: JOHN MAHARAJ Rep #: [id number] : 1945 71 From: Edin Rodriguez MD [...] C: Ann Marie Cassidy T: NTS JOB: [id number] 09/20/16 1522 <Electronically signed by Edin Rodriguez MD> Date __ Edin Rodriguez MD Cosigner Signature (If Indicated): Date CC: Ann Marie Cassidy Date Dictated: 09/18/16 1339 Date Trans cribed: 09/18/16 1339 Animal Control Specialist: Signed 18-Sep-2016 Discharge Instruction Result: Comments: See Note; NOTES: [facility] Medical Records Department [address] [place] [address] Discharge Instruction 09/18/16 1334 MR#: [id number] Acct: [id number] Name: Radha MAHARAJ Rep #: [id number] : 1945 71 From: Edin Rodriguez MD [...] problems, contact your Primary Care Provider. Call [facility] ([phone]) or report to the closest Emergency Room. Call 911 if necessary. 09/18/16 1336 & #60;Electronically signed by Edin Rodriguez MD> Date Edin Rodriguez MD Cosigner Signature (If Indicated): Date CC: Ann Marie Khanh 18-Sep-2016 Chest PA and Lateral Result: Comments: See Note; NOTES: [facility] Imaging Services [address] [place] [address] Verdana 4d Chest PA and Lateral MR#: [id number] Acct: [id number] Name: CAROL ANNMAR S Rep #: [id number] : 1945 F 71 From: Rolly Aviles MD PCP: Ann Marie Cassidy Status: REG ER Study: Chest PA and Lateral Date of Exam: 09/18/16 Exam# [id number] Ordering Dr: Edin Rodriguez MD STUDY: X-RAY [...] 13:29 EST Te l , Service support [phone], CC: Ann Marie Cassidy; Edin Rodriguez MD Animal Control Specialist: Signed 17-Aug-2016 Knee 4 or More Views Result: Comments: See Note; NOTES: [facility] Imaging Services [address] [place] [address] Verdana 4d Knee 4 or More Views MR#: [id number] Acct: [id number] Name: MAR MAHARAJ Rep #: [id number] : 1945 F 71 From: Florian Valenzuela MD PCP: Davian Mccray Status: REG CLI Study: Knee 4 or More Views Date of Exam: 08/17/16 Exam# [id number] Ordering Dr: Gemma Nina MD STUD Y: [...] Florian Valenzuela MD at 15:48 EST Tel [phone], Service support [phone], CC: Tejal Mccray; Gemma Nina MD Animal Control Specialist: Signed 17-Aug-2016 Tibia AND Fibula 2 Views Result: Comments: See Note; NOTES: [facility] Imaging Services [address] [place] [address] Verdana 4d Tibia AND Fibula 2 Views MR#: [id number] Acct: [id number] Name: MAR MAHARAJ Rep #: [id number] : 1945 F 71 From: Florian Valenzuela MD PCP: Davian Mccray Status: REG CLI Study: Tibia AND Fibula 2 Views Date of Exam: 08/17/16 Exam# [id number] Ordering Dr: Gemma Nina STUDY: X-RAY - [...] Florian Valenzuela MD at 15:42 EST Tel [phone], Service support [phone], CC: Davian Nina MD Animal Control Specialist: Signed 01-Jul-2016 Venous Duplex Lower Extremity Result: Comments: See Note; NOTES: [facility] Cardiovascular Services [address] [place] [address] Venous Duplex US, Unilateral 07/01/16 0850 MR#: [id number] Acct: [id number] Name: MAR MAHARAJ Rep #: [id number] : 1945 70 From: David Hawthorne MD Attending Dr: Luly Noriega DIRECTOR OF PHYSICIAN PRACTICES Status: REG CLI Ordering Dr: Luly Noriega DIRECTOR OF PHYSICIAN PRACTICES-C Date: 07/01/16 Location: [facility] Sex: F C [...] faxed augmentation. to Luly Noriega DIRECTOR OF PHYSICIAN PRACTICES @ 9:20 am @ [facility] is [...] 07/01/16 1937 Date David Hawthorne MD CC: uLly Noriega; Davianjosephine Hernandezmary Date Dictated: 07/01/16 0850 Date Transcribed: 07/01/161936 Animal Control Specialist: Signed 07-Jun-2016 6 Minute Walk Test Result: Comments: See Note; NOTES: [facility] Pulmonary Services/Neurology [address] [place] [address] MR#: [id number] Acct: [id number] Name: MAR MAHARAJ Rep #: [id number] : 1945 70 From: Adair Wu MD Referring Dr: Luly Noriega NP Date: Ordering Dr: Sex: F C Location: PSN PSN 6 Minute Walk Test - 6 Minute Walk Test 6 Minute Walk Test: 6 Minute Walk Test PSN:6-Minute Walk Test Start: 06/07/16 11:18 Freq: Status: Active Document 06/07/16 11:18 REK (Rec: 06/07/16 11:21 REK [id number]) 6 Minute Walk Test Date Performed 06/07/16 [...] CC: Date Dictated: 06/07/161540 Date Transcribed: 06/07/161540 Animal Control Specialist: Adair Wu Signed 25-Apr-2016 Chest PA and Lateral Result: Comments: See Note; NOTES: [facility] Imaging Services [address] [place] [address] Verdana 4d Chest PA and Lateral MR#: [id number] Acct: [id number] Name: MAR MAHARAJ Re p #: [id number] : 1945 F 70 From: Stephen Walton DO PCP: Davian Mccray Status: REG ER Study: Chest PA and Lateral Date of Exam: 04/25/16 Exam# [id number] Ordering Dr: Cristhian Mandujano MD STUDY: X-R [...] Stephen Walton DO at 20:12 EDT Tel [phone], Service support [phone], CC: CRISTHIAN MANDUJANO MD; Davian Mccray Animal Control Specialist: Signed 25-Apr-2016 Abdomen/Pelvis without Cont Result: Comments: See Note; NOTES: [facility] Imaging Services [address] [facility] [place] [place] [address] Verdana 4d Abdomen/Pelvis without Cont MR#: [id number] Acct: [id number] Name: GABE MAHARAJ S Rep #: [id number] : 1945 F 70 From: Stephen Walton DO PCP: Davian Mccray Status: REG ER Study: Abdomen/Pelvis without Cont Date of Exam: 04/25/16 Exam# [id number] Ordering Dr: Cristhian Mandujano MD STUDY: CT [...] compared to the prior study. Electronically Signed: Stehpen Walton DO at 19:00 EDT Tel [phone], Service support [phone], CC: CRISTHIAN MANDUJANO MD; Davian Mccray Animal Control Specialist: Signed 12-Mar-2016 Emergency Department Summary Result: Comments: See Note; NOTES: [facility] Medical Records Department [address] [place] [address] Emergency Department Summary MR#: [id number] Acct: [id number] Name: MAR MAHARAJ Rep #: [id number] : 1945 70 From: Darien Warren MD [...] contusion. Darien Warren MD T: NTS JOB: [id number] 03/12/16 0306 <Electronically signed by Darien Warren MD> Date Darien Warren MD Cosigner Signature (If Indicated): Date CC: Davian Mccray Date Dictated: 2326 Date Transcribed: 03/10/162326 Animal Control Specialist: Signed 10-Mar-2016 Discharge Instruction Result: Comments: See Note; NOTES: [facility] Medical Records Department [address] [place] [address] Discharge Instruction 03/10/162006 MR#: [id number] Acct: [id number] Name: MAR MAHARAJ Rep #: [id number] : 1945 70 From: Darien Warren MD [...] problems, contact your doctor. Call [facility] ([phone]) or report to the closest Emergency Room. Call 911 if necessary. 03/10/162007 <Electronically signed by Darien Warren MD> Date Darien Warren MD Cosigner Signature (If Indicated): Date CC: Davian Mccray 10-Mar-2016 Hip 2-3 Views with Pelvis Result: Comments: See Note; NOTES: [facility] Imaging Services [address] [place] [address] Verdana 4d Hip 2-3 Views with Pelvis MR#: [id number] Acct: [id number] Name: MAR DEAN Rep #: [id number] : 1945 F 70 From: Robles Mejia PCP: Davian Mccray Status: [facility] ER Study: Hip 2-3 Views with Pelvis Date of Exam: 03/10/16 Exam# [id number] Ordering Dr: Carlos Eduardo Warren MD STUDY: [...] MejiaDO at 19:47 EDT , Service support [phone], RAD/Hip 2-3 Views with Pelvis IMPRESSION: Hip joint space narrowing. Stable degenerative changes left hip. No fracture or dislocation. 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 ABNORMAL 25-Jan-2016 Pelvis 1 or 2 Views Result: Comments: See Note; NOTES: [facility] Imaging Services [address] [place] [address] Verdana 4d Pelvis 1 or 2 Views MR#: [id number] Acct: [id number] Name: Radha MAHARAJ Rep #: [id number] : 1945 F 70 From: Doroteo Salgado MD PCP: Davian Mccray Status: REG CLI Study: Pelvis 1 or 2 Views Date of Exam: 01/25/16 Exam# [id number] Ordering Dr: Yadira Nina dma, MD STUDY: [...] at 16 :50 EDT , Service support [phone], RAD/Pelvis 1 or 2 Views IMPRESSION: Focus [...] at 16:50 EDT , Service suppor t [phone], CC: Davian Mccray; Gemma Nina MD Animal Control Specialist: Signed 19-Nov-2015 Vert Fx Asess/Lat Bone Den(H) Result: Comments: See Note; NOTES: [facility] Imaging Services [address] [place] [address] Verdana 4d Vert Fx Asess/Lat Bone Den(H) MR#: [id number] Acct: [id number] Luciano e: MAR MAHARAJ Rep #: [id number] : 1945 F 70 From: Florian Valenzuela MD PCP: Davian Mccray Status: REG CLI Study: Vert Fx Asess/Lat Bone Den(H) Date of Exam: 11/19/15 Exam# [id number] Chucho ering Dr: Davian Mccray STUDY: DUAL [...] Florian Valenzuela MD at 8:52 EDT Tel [phone], Service support [phone], CC: Davian Mccray Animal Control Specialist: Signed 19-Nov-2015 Bilat Scrn Digital AND CAD Result: Comments: See Note; NOTES: [facility] Imaging Services [address] [place] [address] Verdana 4d Bilat Scrn Digital AND CAD MR#: [id number] Acct: [id number] Name: MAR MAHARAJ Rep #: [id number] : 1945 F 70 From: Florian Valenzuela MD PCP: Davian Mccray Status: REG CLI Study: Bilat Scrn Digital AND CAD Date of Exam: 11/19/15 Exam# [id number] Ordering Dr: Davian Mccray MAMMOGRAPHY - BILATERAL [...] Florian Valenzuela MD at 10:06 EDT Tel [phone], Service support [phone], CC: Davian Mccray Animal Control Specialist: Signed 19-Nov-2015 Bilat Scrn Digital AND CAD Result: Comments: See Note; NOTES: [facility] Imaging Services [address] [place] [address] Verdana 4d Bilat Scrn Digital AND CAD MR#: [id number] Acct: [id number] Name: MAR MAHARAJ Rep #: [id number] : 1945 F 70 From: Florian Valenzuela MD PCP: Davian Mccray Status: REG CLI Study: Bilat Scrn Digital AND CAD Date of Exam: 11/19/15 Exam# [id number] Ordering Dr: Davian Mccray MAMMOGRAPHY - BILATERAL [...] Florian Valenzuela MD at 10:06 EDT Tel [phone], Service support [phone], CC: Davian Mccray Animal Control Specialist: Signed 19-Nov-2015 Dexa Bone Density Study (HP) Result: Comments: See Note; NOTES: [facility] Imaging Services [address] [place] [address] Verdana 4d Dexa Bone Density Study () MR#: [id number] Acct: [id number] Name : MAR MAHARAJ Rep #: [id number] : 1945 F 70 From: Florian Valenzuela MD PCP: Davian Mccray Status: [facility] Study: Dexa Bone Density Study () Date of Exam: 11/19/15 Exam# [id number] Order ing Dr: Davian Mccray STUDY: DUAL [...] Florian Valenzuela MD at 12:53 EDT Tel [phone], Service support [phone], F ax [phone] CC: Davian Mccray Animal Control Specialist: Signed 19-Nov-2015 Thyroid Result: Comments: See Note; NOTES: [facility] Imaging Services [address] [place] [address] Verdana 4d Thyroid MR#: [id number] Acct: [id number] Name: MAR MAHARAJ Rep #: [id number] : 1945 F 70 From: Stephen Walton DO PCP: Davian Mccray Status: REG CLI Study: Thyroid Date of Exam: 11/19/15 Exam# [id number] Ordering Dr: Davian Mccray STUDY: THYROID ULTRASOUN [...] Stephen Walton DO at 16:48 EDT Tel [phone], Service support [phone], CC: Davian Mccray Animal Control Specialist: Signed 17-Dec-2014 Cerv Spine 2 or 3 Views Result: Comments: See Note; NOTES: [facility] Imaging Services [address] [place] [address] Radiology Report MR#: [id number] Acct: [id number] Name: MAR MAHARAJ Rep #: [id number] : 1945 F 69 From: Vitaly Turner MD PCP: Libby Mai DO Status: REG CLI Study: Cerv Spine 2 or 3 Views Date of Exam: 12/17/14 Exam# [id number] Ordering Dr: De Yepez STUDY: X-RAY - [...] at 11:32 EDT Tel , Service support [phone], 0045 RAD/Cerv Spine 2 or 3 Views IMPRESSION: Status post anterior fusion from C3-C6, with 3 mm extrusion of the C6 screw. Loss of the normal lordosis. No signs of instability. Electronically Signed: Vitaly Turner MD, FACR at 11:32 EDT , Service support [phone], CC: DE YEPEZ; Libby Mai DO Animal Control Specialist: Signed 17-Dec-2014 Spine Cervical (Routine) Result: Comments: See Note; NOTES: [facility] Imaging Services [address] [place] [address] MRI Report MR#: [id number] Acct: [id number] Name: MAR MAHARAJ Rep #: [id number] : 1945 F 69 From: Vitaly Turner MD PCP: Libby Mai DO Status: REG CLI Study: Spine Cervical (Routine) Date of Exam: 12/17/14 Exam# [id number] Ordering Dr: De Yepez STUDY: MRI CERVIC [...] FACR at 11:15 EDT , Service support [phone], CC: DE YEPEZ; Libby Mai DO Animal Control Specialist: Signed 15-Dec-2014 Thyroid Result: Comments: See Note; NOTES: [facility] Imaging Services [address] [place] [address] Ultrasound Report MR#: [id number] Acct: [id number] Name: MAR MAHARAJ Rep #: [id number] : 1945 F 69 From: Stephen Walton DO PCP: Libby Mai DO Status: REG CLI Study: Thyroid Date of Exam: 12/15/14 Exam# [id number] Ordering Dr: Lisa Garcia MD STUDY: THYROID [...] Stephen Walton DO at 13:38 EDT Tel [phone], Service support [phone], CC: Libby Mai DO; Lisa Garcia MD Animal Control Specialist: Signed 17-Nov-2014 Bilat Scrn Digital AND CAD Result: Comments: See Note; NOTES: [facility] Imaging Services [address] [facility] [place] [address] Breast Imaging Report MR#: [id number] Acct: [id number] Name: MAR MAHARAJ Rep #: [id number] : 1945 F 69 From: Alfa Bettencourt MD PCP: Libby Mai DO Status: REG CLI Study: Bilat Scrn Digital AND CAD Date of Exam: 11/17/14 Exam# [id number] Ordering Dr: Libby Mai DO MAMMOGR APHY [...] at 12:06 EDT Tel , Service support [phone], CC: Libby Mai DO Animal Control Specialist: Signed 17-Nov-2014 Chest without Contrast Result: Comments: See Note; NOTES: [facility] Imaging Services [address] [place] [address] CAT Scan Report MR#: [id number] Acct: [id number] Name: MAR MAHARAJ Rep #: [id number] : 1945 F 69 From: Alfa Bettencourt MD PCP: Libby Mai DO Status: REG CLI Study: Chest without Contrast Date of Exam: 11/17/14 Exam# [id number] Ordering Dr: Libby Mai DO STUDY: CT [...] at 10:21 EDT Tel , Service support [phone], CC: Libby Mai DO Animal Control Specialist: Signed 23-Sep-2014 Brain/Head without Contrast Result: Comments: See Note; NOTES: [facility] Imaging Services [address] [place] [address] CAT Scan Report MR#: [id number] Acct: [id number] Name: MAR MAHARAJ Rep #: [id number] : 1945 F 69 From: Parminder Rashid MD PCP: Libby Mai DO Status: REG ER Study: Brain/Head without Contrast Date of Exam: 09/23/14 Exam# [id number] Ordering Dr: Rachel Avina MD STUDY: CT [...] MD at 21:19 EST , Service support [phone], CC: Libby Mai DO; Rachel Avina MD Animal Control Specialist: Signed 23-Sep-2014 Spine Cervical without Contras Result: Comments: See Note; NOTES: [facility] Imaging Services [address] [facility] [place] [address] CAT Scan Report MR#: [id number] Acct: [id number] Name: MAR MAHARAJ Rep #: [id number] : 1945 F 69 From: Parminder Rashid MD PCP: Libby Mai DO Status: REG ER Study: Spine Cervical without Contras Date of Exam: 09/23/14 Exam# [id number] Ordering Dr: Rachel Avina MD LORENA DY: [...] MD at 21:25 EST , Service support [phone], CC: Libby Mai DO; Rachel Avina MD Animal Control Specialist: Signed 21-Aug-2014 Discharge Instruction Result: Comments: See Note; NOTES: [facility] Medical Records Department [address] [place] [address] Instructions for Home/Discharge Instructions 08/21/14 1712 MR#: [id number] Acc t: [id number] Name: MAR MAHARAJ Rep #: [id number] : 1945 69 From: Galo Antonio PA-C [...] needed. Additional Instructions: F/U APPT S PER [facility] POST-OP INSTRUCTIONS F/U WITH GLENN RO 09/03/14 9:15 AM PHYSICAL THERAPY APPT WITH CADE @ [facility] 08/25/14 @ 9:00 AM, WILL [...] Please Follow Up With: Glenn Ro 08/21/14 6286 <Electronically signed by Galo Antonio PA-C> Date ___ Galo Antonio PA-C CC: Libby Mai DO 19-Aug-2014 Knee 1 or 2 Views Result: Comments: See Note; NOTES: [facility] Imaging Services [address] [place] [address] Radiology Report MR#: [id number] Acct: [id number] Name: MAR MAHARAJ Rep #: [id number] : 1945 F 69 From: Bakari Kenny MD PCP: Libby Mai DO Status: ADM IN Study: Knee 1 or 2 Views Date of Exam: 08/19/14 Exam# [id number] Ordering Dr: Darien Avina MD STUDY: X-RAY [...] MD at 16:29 EST , Service support [phone], CC: Libby Mai DO; Darien Avina MD Animal Control Specialist: Signed 12-Aug-2014 History and Physical Exam Result: Comments: See Note; NOTES: [facility] Medical Records Department [address] [place] [address] History and Physical 08/11/14 1334 MR#: [id number] Acct: [id number] Name: MAR MAHARAJ Rep #: [id number] : 1945 69 From: Glenn Ro PCP: Libby Mai DO Status: PRE IN Location: [facility] DATE OF SERVICE: 08/19/2014 PRIMARY CARE PROVIDER: [...] b.i.d. REVIEW OF SYSTEMS: Documented in the [facility] medical history sheet. Please refer [...] of right knee dated May 30, 2014, [facility], weightbearing, AP, tunnel, [...] consent form. YADIRA Narvaez T: RUFUS JOB: [id number] 08/12/14 0740 <Electronically signed by Glenn Ro > Date: Time: Glenn Ro CC: Glenn Mai DO Date Dictated: 08/11/141333 Date Transcribed: 08/11/141333 Animal Control Specialist: Signed ____ I have re-examined the patient. There a re no clinical changes since date of exam. ____ See Progress Notes for Changes ____ Dictated on Admission Date: Time: Signature: 23-May-2014 Hip min 2 Views Result: Comments: See Note; NOTES: [facility] Imaging Services [address] [place] [address] Radiology Report MR#: [id number] Acct: [id number] Name: MAR MAHARAJ Rep #: [id number] : 1945 F 68 From: Florian Valenzuela MD PCP: Libby Mai DO Status: REG CLI Study: Hip min 2 Views Date of Exam: 05/23/14 Exam# [id number] Ordering Dr: Libby Mai DO STUDY: X-RAY [...] Florian Valenzuela MD at 9:41 EDT Tel [phone], Service support [phone], CC: Libby Mai DO Animal Control Specialist: Signed 23-May-2014 Knee 4 or More Views Result: Comments: See Note; NOTES: [facility] Imaging Services [address] [place] [address] Radiology Report MR#: [id number] Acct: [id number] Name: MAR MAHARAJ Rep #: [id number] : 1945 F 68 From: Florian Valenzuela MD PCP: Libby Mai DO Status: REG CLI Study: Knee 4 or More Views Date of Exam: 05/23/14 Exam# [id number] Ordering Dr: Libby Mai DO STUDY: X- [...] Florian Valenzuela MD at 9:42 EDT Tel [phone], Service support [phone], CC: Libby Mai DO Animal Control Specialist: Signed 02-May-2014 Chest without Contrast Result: Comments: See Note; NOTES: [facility] Imaging Services [address] [place] [address] CAT Scan Report MR#: [id number] Acct: [id number] Name: MAR MAHARAJ Rep #: [id number] : 1945 F 68 From: Cristhian Spears MD PCP: Libby Mai DO Status: REG CLI Study: Chest without Contrast Date of Exam: 05/02/14 Exam# [id number] Ordering Dr: Libby Mai DO STUDY: CT [...] at 15:32 EDT Tel , Service support [phone], CC: Libby Mai DO Animal Control Specialist: Signed 02-May-2014 Thyroid Result: Comments: See Note; NOTES: [facility] Imaging Services [address] [place] [address] Ultrasound Report MR#: [id number] Acct: [id number] Name: MAR MAHARAJ Rep #: [id number] : 1945 F 68 From: Stephen Walton DO PCP: Libby Mai DO Status: REG CLI Study: Thyroid Date of Exam: 05/02/14 Exam# [id number] Ordering Dr: Libby Mai DO STUDY: THYROID [...] Stephen Walton DO at 19:17 EDT Tel [phone], Service support [phone], CC: Libby Mai DO Animal Control Specialist: Signed 27-Feb-2014 L/S Spine Min 4 Views Result: Comments: See Note; NOTES: [facility] Imaging Services [address] [place] [address] Radiology Report MR#: [id number] Acct: [id number] Name: MAR MAHARAJ Rep #: [id number] : 1945 F 68 From: Florian Valenzuela MD PCP: Libby Mai DO Status: REG CLI Study: L/S Spine Min 4 Views Date of Exam: 02/27/14 Exam# [id number] Ordering Dr: De Yepez STUDY: X-R AY [...] Florian Valenzuela MD at 10:31 EDT Tel [phone], Service support [phone], RAD/L/S Spine Min 4 Views IMP RESSION: The patient is status post laminectomy and fusion at the L3-L4 and L4- L5 levels with bone graft and bone stimulator. Grade 2 anterolisthesis of L4 on L5. Electronically Signed: Florian khan MD at 10:31 EDT Tel [phone], Service support [phone], CC: DE YEPEZ; Libby Mai DO Animal Control Specialist: Signed 27-Feb-2014 Spine Lumbar (Routine) Result: Comments: See Note; NOTES: [facility] Imaging Services [address] [place] [address] MRI Report MR#: [id number] Acct: [id number] Name: MAR MAHARAJ Rep #: [id number] : 1945 F 68 From: Angus Arreola PCP: Libby Mai DO Status: REG CLI Study: Spine Lumbar (Routine) Date of Exam: 02/27/14 Exam# [id number] Ordering Dr: De Yepez STUDY: MRI LUMBAR [...] MD at 7:48 EDT , Service support [phone], CC: DE Mai DO Animal Control Specialist: Signed 10-Feb-2014 Cerv Spine 2 or 3 Views Result: Comments: See Note; NOTES: [facility] Imaging Services [address] [place] [address] Radiology Report MR#: [id number] Acct: [id number] Name: MAR MAHAARJ Rep #: [id number] : 1945 F 68 From: Florian Valenzuela MD PCP: Libby Mai DO Status: REG CLI Study: Cerv Spine 2 or 3 Views Date of Exam: 02/10/14 Exam# [id number] Ordering Dr: De Yepez STUDY: X -RAY [...] Florian Valenzuela MD at 15:54 EDT Tel [phone], Service support [phone], RAD/Cerv Spine 2 or 3 Views IMPRESSION: Status post anterior fu tamika at the C3-C4, C4-C5 and C5-C6 levels. No abnormal movement occurs between the vertebral segments. Electronically Signed: Florian Valenzuela MD at 15:54 EDT Tel [phone], Service support [phone], CC: DE YEPEZ; Libby Mai DO Animal Control Specialist: Signed 13-Jan-2014 Echocardiogram Complete Result: Comments: See Note; NOTES: [facility] Cardiovascular Services [address] [place] [address] Echo Complete 01/10/14 1155 MR#: [id number] Acct: [id number] Name: LESLY MAHARAJ Rep #: [id number] : 1945 68 From: Sergio Lawler MD Attending Dr: Nuris ARAGON,Sergio Status: REG CLI Ordering Dr: Sergio Lawler MD Date: 01/10/14 Location: [facility] Sex: F C Admitted: [facility] This was a 2D Doppler, Color [...] Dictated: 01/10/14 1155 Date Transcribed: 01/13/14 1103 Animal Control Specialist: Signed 20-Jun-2013 Valeri Thrasher Digital & CAD Result: Comments: See Note; NOTES: [facility] Imaging Services [address] [place] [address] Breast Imaging Report MR#: [id number] Acct: [id number] Name: MAR MAHARAJ Rep #: [id number] : 1945 F 67 From: Florian Valenzuela MD PCP: Status: REG CLI Exam# [id number] Ordering Dr: Libby Mai DO MAMMOGRAPHY - [...] 20, 2013 at 9: 52:55 AM EDT [phone] Electronically Signed GP/GP If you are the referring physician and would like to consult with the radiologist who provided this interpretation, please contact Florian Valenzuela M.D. at [phone]. If this radiologist is unavailable, you will be directed to another radiologist to assist. If you are a patient with a question regarding this report, please contact your referring physician directly. Professional Interpretation Provided By: [employer], Phone , These documents contain legally protected [...] of these documents. CC: Hari Mai DO Animal Control Specialist: Signed 20-Jun-2013 Dexa Bone Density Study (HP) Result: Comments: See Note; NOTES: [facility] Imaging Services [address] [place] [address] Bone Density Report MR#: [id number] Acct: [id number] Name: MAR MAHARAJ Rep #: [id number] : 1945 F 67 From: Florian Valenzuela MD PCP: Status: [facility] Study: Dexa Bone Density Study (HP) Date of Exam: 06/20/13 Exam# [id number] Ordering Dr: Libby Mai DO STUDY: DUAL [...] angel luis mbar spine. On the lateral webbing tacker view, there is evidence of loss of [...] June 20, 2013 at 10:14:39 AM EDT [phone] Electronically Signed GP/GP If you are the referring physician and would like to consult with the radiologist who provided this interpretation, please contact Florian Valenzuela M.D. at [phone]. If this radiologist is unavailable, you will be directed to another radiologist to assist. If you are a patient with a question regarding this report, plea se contact your referring physician directly. Professional Interpretation Provided By: [employer], Phone , These documents contain legally protected [...] of these documents. CC: Libby Mai DO Animal Control Specialist: Signed 06-Jun-2013 Chest without Contrast Result: Comments: See Note; NOTES: [facility] Imaging Services [address] [place] [address] CAT Scan Report MR#: [id number] Acct: [id number] Name: MAR MAHARAJ Rep #: [id number] : 1945 F 67 From: Florian Valenzuela MD PCP: Status: REG CLI Study: Chest without Contrast Date of Exam: 06/06/13 Exam# [id number] Ordering Dr: Libby Mai DO STUDY: CT [...] June 06, 2013 at 10:07:38 AM EDT [phone] Electronically Signed GP/GP If you are the referring physician and would like to consult with the radiologist who provided this interpretation, please contact Florian Valenzuela M.D. at [phone]. If this radiologist is unavailable, you will be directed to another radiologist to assist. If you are a patient with a question regarding this report, please contact your referring physician directly. Professional Interpretation Provided By: [employer], Phone , These documents contain legally protected [...] of these documents. CC: Libby Mai DO Animal Control Specialist: Signed 06-Jun-2013 Chest without Contrast Result: Comments: See Note; NOTES: [facility] Imaging Services [address] [place] [address] CAT Scan Report MR#: [id number] Acct: [id number] Name: MAR MAHARAJ Rep #: [id number] : 1945 F 67 From: Florian Valenzuela MD PCP: Status: REG CLI Study: Chest without Contrast Date of Exam: 06/06/13 Exam# [id number] Ordering Dr: Libby Mai DO STUDY: CT [...] June 06, 2013 at 10:07:38 AM EDT [phone] Electronically Signed GP/GP If you are the referring physician and would like to consult with the radiologist who provided this interpretation, please contact Florian Valenzuela M.D. at [phone]. If this radiologist is unavailable, you will be directed to another radiologist to assist. If you are a patient with a question regarding this report, please contact your referring physician directly. Professional Interpretation Provided By: [employer], Phone , These documents contain legally protected [...] of these documents. CC: Libby Mai DO Animal Control Specialist: Signed Immunization Name Dates Details Pneumococcal (2 years and up) on: 2016 Comments: [facility] Family History Unknown Family Member Name Dates Details Father Comments: COPD, Smoker - Status: Active Mother Comments: Breast CA, DM, HTN, Lung CA - Status: Active Social History Name Dates Details Alcohol Use Comments: Occasional alcohol use Status: Active Caffeine Use Comments: 2 QD Status: Active Current Work/Study Status Comments: Part-time, [employer] Status: Active Exercise History Comments: Light Status: Active Living Situation Comments: Lives alone Status: Active No Drug Use Status: Active Non Smoker/No Tobacco Use Comments: 04/20/11 Status: Active 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, [address] GAP 11 (Normal) Range: 5-15 CO2 28.0 [...] A.D.A. criteria.Please note revised GLUCOSE reference range cbzoguwrb53/02/2018. :32 HgA1C , Office (65206) HgA1C , Office 6.3 % (Normal) Range: 4.6 - 7.1 :32 Blood Glucose , Office (83383) Blood Glucose , Office 133 (Normal) :16 Miscellaneous Lab Procedure Comments: Comments: [id number]; URINE TOX; RUN LOWEST TEST IN LABCOTest(s) Ordered: [id number]; URINE TOX; RUN LOWEST TEST IN [facility] [address] [place], [place], [address] [facility] [place]: [id number] 6+OXYCODONE-BUND (ng/mL)DRUG RESULT SCREEN CUTOFF____ Amphetamines,Urine Negat LAB (Normal) ananth ng/mL 1000Amphetamine test includes Amphetamine and Methamphetamine.Barbiturates Negative ng/mL 200Benzodiazepines Negative ng/mL 200Cannabinoid TEST Negative ng/mL 20Cocaine (Metab) Negative ng/mL 300Opiates Negative ng/mL 300 Opiates test includes Codeine, Morphine, Hydromorphone, Inez codone.Oxycodone/Oxymorphone,Urine Negative ng/mL 300 Test includes Oxydodone and Oxymorphone. TESTING PERFORMED AT [facility]. ORIGINAL REPORT ON FILE IN LAB CONTAINS ADDITIONAL TEST SITE INFORMATION. :16 Urine Drug Screen (VISTA) Comments: Comments: [id number]; URINE TOX; RUN LOWEST TEST IN LABCORPList of Drugs Taken or Suspected? [facility] [address] [place], [address] THC NEGATIVE (Normal) PCP NEGATIVE [...] TESTING MUST BE ORDERED SEPARATELY. USE TESTMNEMONIC: [facility] :28 Microscopic Examination Comments: PATIENT WAS FASTINGPERFORMED BY: LabCoSt. Lawrence Rehabilitation CenterKbedmc1098 [facility] [id number] Bacteria Few (Normal) Mucus Threads Present (Normal) Epithelial Cells (non renal) 0-10 {/hpf} (Normal) Range: 0 - 10 RBC 0-2 {/hpf} (Normal) Range: 0 - 2 WBC 0-5 {/hpf} (Normal) Range: 0 - 5 :52 Basic Metabolic Profile (BMP) Comments: [facility] [address] [place], [place], [address] GAP 10 (Normal) Range: 5-15 CO2 27.0 [...] A.D.A. criteria.Please note revised GLUCOSE reference range qaveaticj18/02/2018. 07-May-20188:52 CBC W/Diff, Automated Comments: [facility] [address] [place], [place], [address] Absolute Lymph 1.75 {X10_3/ul} (Normal) Range: 0.83-4.51 [...] CBC W/Diff, Automated Comments: [facility] [address] [place], [place], [address] Absolute Lymph 1.82 {X10_3/ul} (Normal) Range: 0.83-4.51 [...] Comprehensive Metabolic Profil Comments: [facility] [address] [place], [address] GAP 12 (Normal) Range: 5-15 CO2 28.0 [...] A.D.A. criteria.Please note revised GLUCOSE reference range mhxaicgch07/02/2018. 18-Lbi-33764:28 CALCIFEDIOL (70563) Comments: PATIENT WAS FASTINGPERFORMED BY: LabCoSt. Lawrence Rehabilitation CenterHhjkph2427 [facility] [id number] Vitamin D, 25-Hydroxy 45.7 ng/mL (Normal) Range: 30.0-100.0 Comments: Vitamin D deficiency has been defined by the [place] ofMedicine and an Endocrine Society practice guideline as alevel of serum 25-OH vitamin D less than 20 ng/mL (1,2).The Endocrine Society went on to further define vitamin Dinsufficiency as a level between 21 and 29 ng/mL (2).1. IOM ([place] of Medicine). 2010. Dietary reference intakes for calcium and D. [place]: The National Academies Press.2. Delma MF, Mckenna ABDALLA, Dane MACKENZIE, et al. Evaluation, treatment, and prevention of vitamin D deficiency: an Endocrine Society clinical practice guideline. JCEM. 2010; 96(7):1911-30. :28 VITAMIN B-12 (CYANOCOBALAMIN) Comments: PATIENT WAS FASTINGPERFORMED BY: [place] [id number] (95331) Vitamin B12 507 pg/mL (Normal) Range: 232-1245 :28 TSH (86644) Comments: PATIENT WAS FASTINGPERFORMED BY: Skelta Softwarerp Rweqlj[address] [place] Software[place] [id number] TSH 0.816 {uIU/mL} (Normal) Range: 0.450-4.500 :28 URINALYSIS, W/ MICRO (08425) Comments: PATIENT WAS FASTINGPERFORMED BY: Outcome Referrals6370 [address] [place] Softwarein [place] [id number] Microscopic Examination See below: (Normal) Comments: Microscopic was indicated and was performed. Nitrite, Urine Negative (Normal) Urobilinogen,Semi-Qn 0.2 mg/dL (Normal) Range: 0.2-1.0 Bilirubin Negative (Normal) Occult Blood Negative (Normal) Ketones Negative (Normal) Glucose Negative (Normal) Protein Negative (Normal) WBC Esterase 1+ (Abnormal) Appearance Clear (Normal) Urine-Color Yellow (Normal) pH 7.0 (Normal) Range: 5.0-7.5 Specific Ronceverte 1.017 (Normal) Range: 1.005-1.030 :28 MICROALBUMIN: CREATININE RATIO Comments: PATIENT WAS FASTINGPERFORMED BY: Search to Phone Ftbsvg4574 [facility] [id number] (04942) AND (56428) Alb/Creat Ratio 9.9 {mg/g_creat} (Normal) Range: 0.0-30.0 Albumin, Urine 7.9 ug/mL (Normal) Creatinine, Urine 79.8 mg/dL (Normal) :28 METABOLIC PANEL, COMPREHENSIVE Comments: PATIENT WAS FASTINGPERFORMED BY: LabResolute Networks6370 [facility] [id number] (46609) ALT (SGPT) 13 [iU]/L (Normal) Range: 0-32 [...] 8-27 Glucose 142 mg/dL (Abnormal) Range: 65-99 21-Kbi-54942:28 LIPID PANEL (33275) Comments: PATIENT WAS FASTINGPERFORMED BY: LabCoGuadalupe County HospitalJupujg5040 [facility] [id number] LDL/HDL Ratio 3.2 {ratio} (Normal) Range: 0.0-3.2 Comments: LDL/HDL Ratio Men Women 1/2 Avg.Risk 1.0 1.5 Av g.Risk 3.6 3.2 2X Avg.Risk 6.2 5.0 3X Avg.Risk 8.0 6.1 LDL Cholesterol Calc 143 mg/dL (Abnormal) Range: 0-99 VLDL Cholesterol Peg 29 mg/dL (Normal) Range: 5-40 HDL Cholesterol 45 mg/dL (Normal) Triglycerides 143 mg/dL (Normal) Range: 0-149 Cholesterol, Total 217 mg/dL (Abnormal) Range: 100-199 18-Tmv-01132:28 CBC W/AUTO DIFF WBC (52303) Comments: PATIENT WAS FASTINGPERFORMED BY: LabCoSt. [facility] Rehabilitation CenterOxknsn8266 [facility] [id number] Immature Grans (Abs) 0.0 {x10E3/uL} (Normal) Range: [...] (Normal) Range: 3.4-10.8 :43 HgA1C , Office (49978) HgA1C , Office 6.3 % (Normal) Range: 4.6 - 7.1 :43 Blood Glucose , Office (87312) Blood Glucose , Office 105 (Normal) :55 MAGNESIUM (58914) Comments: PATIENT NOT FASTINGPERFORMED BY: [facility] Nuzyas8912 [facility] [id number] Magnesium 1.6 mg/dL (Normal) Range: 1.6-2.3 :55 POTASSIUM SERUM (16561) Comments: PATIENT NOT FASTINGPERFORMED BY: [facility] Srrzhq7911 [facility] [id number]; ov 02/19 Potassium 4.8 mmol/L (Normal) Range: 3.5-5.2 :59 CBC W/Diff, Automated Comments: [facility] [address] [place], [place], [address] Absolute Lymph 2.55 {X10_3/ul} (Normal) Range: 0.83-4.51 [...] Comprehensive Metabolic Profil Comments: [facility] [address]ab[address] [place], [address] GAP 8 (Normal) Range: 5-15 CO2 32.0 mmol/L (Normal) Range: 21.0-32.0 CL 100 mmol/L (Normal) Range: 98-107 K 3.4 mmol/L (Abnormal) Range: 3.5-5.1 NA 140 mmol/L (Normal) Range: 136-145 T BILI 0.40 mg/dL (Normal) Range: 0.20-1.00 ALT 21 U/L (Normal) Range: 13-56 Comments: Please note revised ALT reference range iaxrfpyuz76/28/2018. ALK P 76 U/L (Normal) Range: 45-117 [...] A.D.A. criteria.Please note revised GLUCOSE reference range dzpivydii95/02/2018. 4-Jmv-942762:40 Microscopic Examination Comments: PATIENT WAS FASTINGPERFORMED BY: Hopela [address] [id number] BY: Cellartis70 [address] [facility] Hospital[facility] [place] [id number] Bacteria Few (Normal) Epithelial Cells (non renal) 0-10 {/hpf} (Normal) Range: 0 - 10 RBC None seen {/hpf} (Normal) Range: 0 - 2 WBC 0-5 {/hpf} (Normal) Range: 0 - 5 8-Evz-015369:40 VITAMIN B-12 (CYANOCOBALAMIN) Comments: PATIENT WAS FASTINGPERFORMED BY: Hopela [address] [id number] BY: [employer] [facility] [place] [id number] (28452) Vitamin B12 470 pg/mL (Normal) Range: 232-1245 5-Ecl-220370:40 CALCIFIDIOL (76645) VIT D Comments: PATIENT WAS FASTINGPERFORMED BY: Hopela [address] [id number] BY: Sporlin6370 [address] [facility] [id number] 25 Vitamin D, 25-Hydroxy 36.1 ng/mL (Normal) Range: 30.0-100.0 Comments: Vitamin D deficiency has been defined by the [place] ofMedicine and an Endocrine Society practice guideline as alevel of serum 25-OH vitamin D less than 20 ng/mL (1,2).The Endocrine Society went on to further define vitamin Dinsufficiency as a level between 21 and 29 ng/mL (2).1. IOM ([place] of Medicine). 2010. Dietary reference intakes for calcium and D. [place]: The National Academies Press.2. Delma MF, Mckenna ABDALLA, Dane MACKENZIE, et al. Evaluation, treatment, and prevention of vitamin D deficiency: an Endocrine Society clinical practice guideline. JCEM. 2010; 96(7):1911-30. 1-Bux-506334:40 LIPOPROTEIN, BLD, BY NMR Comments: PATIENT WAS FASTINGPERFORMED BY: BN [facility] Rghcziquyr9638 [facility] [id number] BY: CB [facility] Lfcfrz9858 [facility] [id number] (03251) LP-IR Score 80 (Abnormal) Comments: INSULIN RESISTANCE MARKER <--Insulin Sensitive Insulin Resistant--> Percentile in Reference PopulationInsulin Resistance ScoreLP-IR Score Low 25th 50th 75th High <27 27 45 63 >63LP-IR Score is inaccurate if patient is non-fasting. .The LP-IR score is a laboratory developed i [facility] that has beenassociated with insulin resistance [...] were developed and their performance characteristicsdetermined by [employer]. These assays have not been cleared by [...] 1600 - 2000 Very High > 2000 6-Ipo-285481:40 TSH (34909) Comments: PATIENT WAS FASTINGPERFORMED BY: [employer] [place] [address] [id number] BY: Search to Phone Ubtogt7843 [facility] [id number] TSH 1.780 {uIU/mL} (Normal) Range: 0.450-4.500 1-Tuw-628141:40 URINALYSIS, W/ MICRO Comments: PATIENT WAS FASTINGPERFORMED BY: Mintera[address] [id number] BY: Search to Phone Mdvupr4905 [facility] [id number] (25419) Microscopic Examination See below: (Normal) Comments: Microscopic was indicated and was performed. Microscopic Examination MICRON (Normal) Comments: Microscopic follows if indicated. Nitrite, Urine Negative (Normal) Urobilinogen,Semi-Qn 0.2 mg/dL (Normal) Range: 0.2-1.0 Bilirubin Negative (Normal) Occult Blood Negative (Normal) Ketones Negative (Normal) Glucose Negative (Normal) Protein Negative (Normal) WBC Esterase Negative (Normal) Appearance Clear (Normal) Urine-Color Yellow (Normal) pH 7.5 (Normal) Range: 5.0-7.5 Specific Ronceverte 1.016 (Normal) Range: 1.005-1.030 1-Kxd-369804:40 MICROALBUMIN: CREATININE Comments: PATIENT WAS FASTINGPERFORMED BY: Niupai[address] [id number] BY: NiupaiAndrew [place] [id number] [facility] [id number] RATIO (85588) AND (98176) Alb/Creat Ratio 8.6 {mg/g_creat} (Normal) Range: 0.0-30.0 Albumin, Urine 4.7 ug/mL (Normal) Creatinine, Urine 54.7 mg/dL (Normal) 1-Eko-490456:40 METABOLIC PANEL, Comments: PATIENT WAS FASTINGPERFORMED BY: Niupai[address] [id number] BY: NiupaiSt. Lawrence Rehabilitation CenterVngloc6084 [facility] [id number] COMPREHENSIVE (53862) ALT (SGPT) 17 [iU]/L (Normal) Range: 0-32 [...] 8-27 Glucose 99 mg/dL (Normal) Range: 65-99 1-Bsf-543857:40 CBC W/AUTO DIFF WBC Comments: PATIENT WAS FASTINGPERFORMED BY: BN [facility] Sdvhkegzik0992 [facility] [id number] BY: CB [facility] Tvoekv5587 [facility] [id number]; ov tomrrow 12/07 (18049) Immature Grans (Abs) 0.0 {x10E3/uL} (Normal) Range: [...] (Normal) Range: 3.4-10.8 :26 HgA1C , Office (80063) HgA1C , Office 6.7 % (Normal) Range: 4.6 - 7.1 :26 Blood Glucose , Office (04117) Blood Glucose , Office 141 (Normal) 9-Cwg-243828:10 CBC W/Diff, Automated Comments: [facility] [address] [place], [address] Absolute Lymph 2.70 {X10_3/ul} (Normal) Range: 0.83-4.51 [...] 4.2-5.4 WBC 7.1 K/mm3 (Normal) Range: 4.4-11.0 2-Als-367899:10 Comprehensive Metabolic Profil Comments: [facility] [address] [place], [place], [address] GAP 10 (Normal) Range: 5-15 CO2 28.0 mmol/L (Normal) Range: 21.0-32.0 CL 100 mmol/L (Normal) Range: 98-107 K 3.8 mmol/L (Normal) Range: 3.5-5.1 NA 138 mmol/L (Normal) Range: 136-145 T BILI 0.40 mg/dL (Normal) Range: 0.20-1.00 ALT 16 U/L (Normal) Range: 13-56 Comments: Please note revised ALT reference range loqevmzgj19/28/2018. ALK P 81 U/L (Normal) Range: 45-117 [...] 126 mg/dLsuggests DIABETES MELLITUS per A.D.A. criteria. 3-Bjs-924363:10 CRP Comments: [facility] [address] [place], [id number] C-REACTIVE PROT 4.26 mg/L (Abnormal) Range: 0.0-3.0 Comments: C-Reactive Protein (CRP) provides useful information for thediagnosis, therapy and monitoring of inflammatory processesand associated diseases. For the evaluation of Relative Riskfor Cardiovascular Dise ase, a High Sensitivity CRP (HSCRP)should be ordered. 5-Gpx-226910:10 Erythrocyte Sed Rate Comments: [facility] [address] [place], [address] SED RATE 7 mm/h (Normal) Range: 0-30 07-Sep-20178:49 Rapid Flu (95417 x 2) Influenza A Ag Positive (Normal) Comments: A, no flu shot 0-Azo-271583:31 Rapid Strep Test, Office (65198) Rapid Strep Test, Office Negative (Normal) :51 THROAT CULTURE (73565) Comments: PATIENT NOT FASTINGPERFORMED BY: [employer] [facility] HospitalSmailexUNC Health Southeastern [id number] Information: SRC:TH Result 1 RRF (Normal) Comments: Routine respiratory vicente Upper Respiratory Final report Culture (Normal) Lipase, Serum 11 U/L (Abnormal) Comments: PATIENT NOT FASTINGPERFORMED BY: [facility]6370 [facility] [id number] :30 Range: 14-85 Written Authorization WAR (Normal) Comments: PATIENT NOT FASTINGPERFORMED BY: [employer] Uvkfbb6318 [facility] [id number] :30 Comments: Written Authorization Received.Authorization received from original requistion 30-02-5710Miyhyj by Ann Hartley :30 METABOLIC PANEL, COMPREHENSIVE Comments: stat; PATIENT NOT FASTINGPERFORMED BY: [employer] Qrygtt8343 [facility] [id number] (71324) ALT (SGPT) 5 [iU]/L (Normal) Range: 0-32 [...] Glucose, Serum 99 mg/dL (Normal) Range: 65-99 7-Pso-334861:30 CBC W/AUTO DIFF WBC (95705) Comments: stat; PATIENT NOT FASTINGPERFORMED BY: [facility] Eijyhi6323 [facility] [id number] Immature Grans (Abs) 0.0 {x10E3/uL} (Normal) Range: [...] 3.77-5.28 WBC 7.3 {x10E3/uL} (Normal) Range: 3.4-10.8 1-Vvq-935327:31 Rapid Flu (00959 x 2) Influenza A Ag Negative (Normal) 96-Ywx-582364:28 HgA1C , Office (97636) HgA1C , Office 6.3 % (Normal) Range: 4.6 - 7.1 43-Hml-377100:28 Blood Glucose , Office (23855) Blood Glucose , Office 133 (Normal) 75-Cms-041979:27 VITAMIN B-12 (CYANOCOBALAMIN) Comments: PATIENT NOT FASTINGPERFORMED BY: [employer] Luv[employer] [facility] HospitalSmailexUNC Health Southeastern [id number] (55830) Vitamin B12 258 pg/mL (Normal) Range: 211-946 88-Zis-626290:27 MAGNESIUM (81736) Comments: PATIENT NOT FASTINGPERFORMED BY: Apt[employer] Doyle [facility] HospitalSmailexUNC Health Southeastern [id number] Magnesium, Serum 1.6 mg/dL (Normal) Range: 1.6-2.3 75-Veu-375392:27 Metabolic Panel, Basic Comments: PATIENT NOT FASTINGPERFORMED BY: [employer] Verdande TechnologyUNC Health Southeastern [id number] (15902) Calcium, Serum 9.3 mg/dL (Normal) Range: 8.7-10.3 [...] Urinalysis, Complete Comments: How was Urine Obtained? RECYCLING PROGRAM MANAGER TO [facility] Frsyxbybpk[address] [place], [place], [id number] MUCUS, URINE 0 SEEN {/hpf} (Normal) BACTERIA [...] CBC W/Diff, Automated Comments: [facility] Yuxegszfoc3266 [facility] [address]. [place], [place], [address] Absolute Lymph 1.41 {X10_3/ul} (Normal) Range: 0.83-4.51 [...] 4.2-5.4 WBC 7.7 K/mm3 (Normal) Range: 4.4-11.0 34-Tfv-757048:15 Comprehensive Metabolic Profil Comments: [facility] [address]ac[address]mw[address] [place], [place], [address] GAP 6 (Normal) Range: 5-15 CO2 33.0 [...] 7-18 GLU 101 mg/dL (Normal) Range: 70-110 98-Wkh-581345:09 CBC W/Diff, Automated Comments: [facility] Uzcyphlcii34[address] [place], [address] ; another doc Absolute Lymph 1.90 {X10_3/ul} [...] 4.2-5.4 WBC 6.6 K/mm3 (Normal) Range: 4.4-11.0 80-Fsw-951146:09 Comprehensive Metabolic Profil Comments: [facility] Xmwqwoqbxw6[address] [place], [place], [address] GAP 10 (Normal) Range: 5-15 CO2 25.0 [...] 126 mg/dLsuggests DIABETES MELLITUS per A.D.A. criteria. 90-Fcg-291719:09 Lipase Comments: [facility] Fmgxeglrua6861 [place], [address] LIPASE 42 U/L (Abnormal) Range: 73-393 3-Hgo-748756:19 Metabolic Panel, Comprehensive Comments: PATIENT NOT FASTINGPERFORMED BY: [facility] Dvqoxa1452 [facility] [id number] (22140) ALT (SGPT) 11 [iU]/L (Normal) Range: 0-32 [...] Glucose, Serum 108 mg/dL (Abnormal) Range: 65-99 9-Fif-896166:19 HGB A1C (20936) Comments: PATIENT NOT FASTINGPERFORMED BY: [facility]6370 [facility] [id number] Hemoglobin A1c 5.9 % (Abnormal) Range: 4.8-5.6 Comments: . Pre-diabetes: 5.7 - 6.4 Diabetes: >6.4 Glycemic control for adults with diabetes: <7.0 :19 MAGNESIUM (60957) Comments: PATIENT NOT FASTINGPERFORMED BY: [place] 1977070 [facility] [id number] Magnesium, Serum 1.7 mg/dL (Normal) Range: 1.6-2.3 :19 CBC, Platelets & Auto Diff Comments: PATIENT NOT FASTINGPERFORMED BY: [facility] BBQKalkaska [facility] Center6370 [facility] [id number] (44075) Immature Grans (Abs) 0.0 {x10E3/uL} (Normal) Range: [...] 3.77-5.28 WBC 9.5 {x10E3/uL} (Normal) Range: 3.4-10.8 54-Isl-143362:41 Comprehensive Metabolic Profil Comments: REDRAW. PREVIOUS SPECIMEN REJECTED DUE TOHEMOLYSIS. 04/28/17 1128 Aura Ch.[facility] [address]ujrf[address] [place], [place], [address] GAP 6 (Normal) Range: 5-15 CO2 25.0 [...] 126 mg/dLsuggests DIABETES MELLITUS per A.D.A. criteria. 28-Soj-501076:05 Urinalysis, Complete Comments: Order Date: 04/28/17Has pt arrived? YHow was Urine Obtained? CATHE[facility] SPECIMENWOhioHealth [facility] Alimcazrhq85[address] [place], [place], [address] AMORPHOUS 1+ (Normal) MUCUS, URINE 0 SEEN [...] CLARITY Sl. Cloudy (Normal) COLOR Yellow (Normal) 11-Iav-975924:00 CBC W/Diff, Automated Comments: [facility] Fvoochcwee14[address] [place], [address] Absolute Lymph 1.58 {X10_3/ul} (Normal) [...] 4.2-5.4 WBC 25.0 K/mm3 (Abnormal) Range: 4.4-11.0 23-Ogu-191818:00 Lactic Acid Comments: Yes/No query for Sepsis Lactate Rule [facility] Mgyzqidxqo7[address] [place], [address] LACTIC ACID 1.6 mmol/L (Normal) Range: 0.4-2.0 57-Ack-821140:00 Partial Thromboplast Time Comments: [facility] Wkoljbcral9[address] [place], [address] PTT 22.4 s (Abnormal) Range: 24.1-36.2 54-Cdv-749811:00 Prothrombin Time w/INR Comments: [facility] Efeimjxnzb5[address] [place], [address] INR 1.0 (Normal) PROTIME 12.8 s (Normal) Range: 11.7-14.9 57-Imd-03520:50 Miscellaneous Lab Procedure Comments: Comments: [id number]; URINE TOX; RUN LOWEST TEST IN LABCORPTest(s) Ordered: [id number]; URINE TOX; RUN LOWEST TEST IN [facility] Thkpmururz2048 [place], [id number] [facility] [place]: [id number] 6+OXYCODONE-BUND (ng/mL)DRUG RESULT SCREEN CUTOFF____ Amphetamines,Urine Negat LAB (Normal) ananth ng/mL 1000Amphetamine test includes Amphetamine and Methamphetamine.Barbiturates Negative ng/mL 200Benzodiazepines Negative ng/mL 200Cannabinoid TEST Negative ng/mL 20Cocaine (Metab) Negative ng/mL 300Opiates Positive ng/mL 300 Opiates test includes Codeine, Morphine, Hydromorphone, Inez codone.Please Note:Confirmation performed by Mass SpectrometryCodeine Negative 300Morphine Positive Morphine Confirm >3000 ng/mL 300Hydromor phone Negative 300Hydrocodone Negative 300Oxycodone/Oxymorphone,Urine Negative ng/mL 300 Test includes Oxydodone and Oxymorphone. TESTING PERFORMED AT [facility]. ORIGINAL REPORT ON FILE IN LAB CONTAINS ADDITIONAL TEST SITE INFORMATION. :50 Urine Drug Screen (VISTA) Comments: Comments: [id number]; URINE TOX; RUN LOWEST TEST IN LABCOList of Drugs Taken or Suspected? [facility] Elwjtaxiij1801 [address] [place], [id number] THC NEGATIVE (Normal) PCP NEGATIVE (Normal) OPIATES [...] TESTING MUST BE ORDERED SEPARATELY. USE TESTMNEMONIC: [facility] :00 Basic Metabolic Profile (BMP) Comments: 'TROP' Serial specimen #1, #2, #3, or #4: 1[facility] Kvmkrdtadf59[address] [place], [place], [address] GAP 10 (Normal) Range: 5-15 CO2 28.0 [...] CBC W/Diff, Automated Comments: [facility] Grgnbmbxrt[address] [place], [place], [address] ; another doc Absolute Lymph 1.20 {X10_3/ul} [...] 4.2-5.4 WBC 4.0 K/mm3 (Abnormal) Range: 4.4-11.0 82-Yvl-84366:00 Lipase Comments: 'TROP' Serial specimen #1, #2, #3, or #4: [address] [place] [address] [place], [address] LIPASE 82 U/L (Normal) Range: 73-393 52-Fih-67178:00 Liver Profile Comments: 'TROP' Serial specimen #1, #2, #3, or #4: [address] [place] [address] [address]qwh[address] [place], [address] D BILI 0.12 mg/dL (Normal) Range: 0.00-0.30 T BILI 0.50 mg/dL (Normal) Range: 0.20-1.00 ALT 13 U/L (Normal) Range: 12-78 ALK P 58 U/L (Normal) Range: 45-117 AST 6 U/L (Abnormal) Range: 15-37 GLOB 3.4 g/dL (Normal) Range: 2.3-3.5 ALB 3.7 g/dL (Normal) Range: 3.4-5.0 T PROT 7.1 g/dL (Normal) Range: 6.4-8.2 67-Gtj-39484:00 Troponin-I Comments: 'TROP' Serial specimen #1, #2, #3, or #4: 1[facility] Bdzvpbwvue[address] [place], [address] TROPONIN-I < 0.02 ng/mL (Normal) Comments: TROPONIN-I EXPECTED VALUES <0.05 NEGATIVE 0.06 - 0.59 AT RISK OF IN > OR = 0.60 SUGGEST IN 86-Bve-573466:01 Renal Profile Comments: Order Date: 01/17/17Order Info: [id number] - RENALOrder Info: [id number] - MGOrder Date: 01/17/17Order Info: [id number] - [facility] Xpnayxeuzz16[address] [place], [phone] CO2 31.0 mmol/L (Normal) Range: 21.0-32.0 CL [...] 7-18 GLU 102 mg/dL (Normal) Range: 70-110 61-Pag-805311:01 MAGNESIUM (30728) Comments: Order Date: 01/17/17Order Info: [id number] - RENALOrder Info: [id number] - MGOrder Date: 01/17/17Order Info: [id number] - MGWooCincinnati [facility] [address]jzhuvf[address] [place], [phone] MG 1.5 mg/dL (Abnormal) Range: 1.8-2.4 Comments: Moderate Hemolysis, Result may be falsely increased. 87-Bng-004593:25 CBC W/Diff, Automated Comments: [facility] [address] [place], [address] Absolute Lymph 1.62 {X10_3/ul} (Normal) Range: 0.83-4.51 [...] 4.2-5.4 WBC 10.3 K/mm3 (Normal) Range: 4.4-11.0 18-Apz-549565:25 Comprehensive Metabolic Profil Comments: 'TROP' Serial specimen #1, #2, #3, or #4: [address] [place] [address] Usl[address] [place], [place], [address] GAP 10 (Normal) Range: 5-15 CO2 29.0 [...] <126 mg/dLsuggests IMPAIRED HOMEOSTASIS per A.D.A. criteria. 75-Vya-579656:25 Lipase Comments: 'TROP' Serial specimen #1, #2, #3, or #4: [address] [place] [address] [address]xl[address] [place], [place], [address] LIPASE 52 U/L (Abnormal) Range: 73-393 03-Kzb-818796:25 Partial Thromboplast Time Comments: [facility] Cmzeoavhiy6[address] [place], [place], [address] PTT 32.0 s (Normal) Range: 24.1-36.2 89-Cet-549673:25 Prothrombin Time w/INR Comments: [facility] Vctqtzwekt65[address] [place], [place], [address] INR 1.0 (Normal) PROTIME 13.1 s (Normal) Range: 11.7-14.9 65-Zme-402615:25 Troponin-I Comments: 'TROP' Serial specimen #1, #2, #3, or #4: [address] [place] [address] [address]wpgdtnlh[address] [place], [place], [address] TROPONIN-I 0.93 ng/mL (Abnormal) Comments: Critical Result(s) Called INDRA Tyson at: 12:03:56012/19/2016 by: JAYDA CRAIG TROPONIN-I EXPECTED VALUES <0.05 NEGATIVE 0.06 - 0.59 AT RISK OF IN > OR = 0.60 SUGGEST IN 59-Ofl-605760:40 Urinalysis, Complete Comments: How was Urine Obtained? RECYCLING PROGRAM MANAGER TO [facility] Fcyhqkqkcm[address] [place], [address] MUCUS, URINE 0 SEEN {/hpf} (Normal) BACTERIA [...] CLARITY Sl. Cloudy (Normal) COLOR Yellow (Normal) 87-Fvr-136554:09 CBC W/Diff, Automated Comments: [facility] Tbscsuugjy58[address] [place], [address] Absolute Lymph 1.33 {X10_3/ul} (Normal) Range: 0.83-4.51 [...] 4.2-5.4 WBC 5.7 K/mm3 (Normal) Range: 4.4-11.0 12-Duv-773876:09 Comprehensive Metabolic Profil Comments: 'TROP' Serial specimen #1, #2, #3, or #4: 1[facility] Y[address]xbqshkrk[address] [place], [place], [address] GAP 8 (Normal) Range: 5-15 CO2 33.0 [...] <126 mg/dLsuggests IMPAIRED HOMEOSTASIS per A.D.A. criteria. 05-Fxx-922771:09 Lactic Acid Comments: [facility] [address]gs[address] [place], [address] LACTIC ACID 1.5 mmol/L (Normal) Range: 0.4-2.0 06-Kqe-997658:09 Lipase Comments: 'TROP' Serial specimen #1, #2, #3, or #4: [address] [place] [address] [address]uzinuuvhc[address] [place], [address] LIPASE 40 U/L (Abnormal) Range: 73-393 :09 Partial Thromboplast Time Comments: [facility] [address]vqqkaqxer9[address] [place], [address] PTT 38.3 s (Abnormal) Range: 24.1-36.2 :09 Prothrombin Time w/INR Comments: [facility] Ed[address] [place], [address] INR 1.3 (Normal) PROTIME 15.8 s (Abnormal) Range: 11.7-14.9 :09 Troponin-I Comments: 'TROP' Serial specimen #1, #2, #3, or #4: [address] [place] [address] [address]jygnswas[address] [place], [address] TROPONIN-I < 0.02 ng/mL (Normal) Comments: TROPONIN-I EXPECTED VALUES <0.05 NEGATIVE 0.06 - 0.59 AT RISK OF IN > OR = 0.60 SUGGEST IN 46-Lfo-859216:52 Potassium Comments: [facility] Hkyxvygsog360[address] [place], [address](016 K 3.4 mmol/L (Abnormal) Range: 3.5-5.1 03-Kxe-15390:10 Basic Metabolic Profile (BMP) Comments: DR AVINA ORDERED: BMP, CBC, MRSADR.NOELLE ORDERED: [facility] Xtapjsyklh20[address] [place], [address] GAP 12 (Normal) Range: 5-15 CO2 27.0 mmol/L (Normal) Range: 21.0-32.0 CL 99 mmol/L (Normal) Range: 98-107 K 2.7 mmol/L (Abnormal) Range: 3.5-5.1 Comments: Critical Result(s) Called at: 10:30:38 11/14/2016 by:Aura Ch to [facility] NA 138 mmol/L (Normal) Range: [...] 126 mg/dLsuggests DIABETES MELLITUS per A.D.A. criteria. 09-Gio-09307:10 CBC-Complete Blood Cnt No Diff Comments: DR AVINA ORDERED: BMP, CBC, MRSADRNIGEL ORDERED: ESTEBAN AVINA ORDERED: BMP, CBC, HANSADRNIGEL ORDERED: [facility] Xbadnhphpa5174 [facility] [place], [address] MPV 10.8 fL (Normal) Range: 6.2-12.0 PLT [...] 4.2-5.4 WBC 7.1 K/mm3 (Normal) Range: 4.4-11.0 91-Rww-92649:10 MRSA/SAID SCREEN Comments: [facility] Xzqpkfqtfy[address] [place], [address] ; another doc MRSA+SAID SCRN See Note (Normal) Comments: DR AVINA ORDERED: BMP, CBC, MRSA ORDERED: K MRSA/SAID SCRNS. AUREUS S. aureus NegativeMRSA MRSA Negative :09 MAGNESIUM (30779) Comments: PATIENT NOT FASTINGPERFORMED BY: [facility]6370 [facility] [id number] Magnesium, Serum 1.7 mg/dL (Normal) Range: 1.6-2.3 :09 Metabolic Panel, Basic Comments: PATIENT NOT FASTINGPERFORMED BY: [facility] Kwpcpw6070 [facility] [id number] (08947) Calcium, Serum 8.7 mg/dL (Normal) Range: 8.7-10.3 [...] Glucose, Serum 97 mg/dL (Normal) Range: 65-99 81-Ynj-583625:45 Urinalysis, Complete Comments: How was Urine Obtained? RECYCLING PROGRAM MANAGER TO SPECIFYTrinity Health System Buhialzfaj33[address] [place], [address] MUCUS, URINE RARE {/hpf} (Normal) BACTERIA RARE [...] (Normal) CLARITY Cloudy (Normal) COLOR Yellow (Normal) 16-Tik-915175:53 CBC W/Diff, Automated Comments: [facility] Yasxkrknyt8[address] [place], [place], [address] Absolute Lymph 1.08 {X10_3/ul} (Normal) Range: 0.83-4.51 [...] 4.2-5.4 WBC 6.1 K/mm3 (Normal) Range: 4.4-11.0 80-Ngh-709476:53 Comprehensive Metabolic Profil Comments: [facility] Cdmyiywxqy15[address] [place], [address] GAP 12 (Normal) Range: 5-15 CO2 27.0 [...] :53 Lactic Acid Comments: [facility] Zuxrjbphzy66[address] [place], [place], [address] LACTIC ACID 2.2 mmol/L (Abnormal) Range: 0.4-2.0 :53 Partial Thromboplast Time Comments: [facility] Figogwmotw18[address] [place], [address] PTT 32.1 s (Normal) Range: 24.1-36.2 :53 Prothrombin Time w/INR Comments: [facility] K[address]bwxfkte36[address] [place], [place], [address] INR 1.0 (Normal) PROTIME 13.2 s (Normal) Range: 11.7-14.9 :54 Basic Metabolic Profile (BMP) Comments: [facility] Wcnghxygns17[address] [place], [place], [address] GAP 10 (Normal) Range: 5-15 CO2 29.0 [...] Cnt No Diff Comments: [facility] [address] [place], [place], [address] MPV 10.1 fL (Normal) Range: 6.2-12.0 PLT [...] :54 Hemoglobin A1c Comments: [facility] [address]qbzxlciw[address] [place], [place], [address] HGB A1C 6.4 % (Abnormal) Range: 4.2-6.3 :54 Liver Profile Comments: [facility] Orbmnrppjk9[address] [place], [place], [address] D BILI 0.27 mg/dL (Normal) Range: 0.00-0.30 T BILI 0.80 mg/dL (Normal) Range: 0.20-1.00 ALT 12 U/L (Normal) Range: 12-78 ALK P 82 U/L (Normal) Range: 45-117 AST 10 U/L (Abnormal) Range: 15-37 GLOB 3.5 g/dL (Normal) Range: 2.3-3.5 ALB 3.2 g/dL (Abnormal) Range: 3.4-5.0 T PROT 6.7 g/dL (Normal) Range: 6.4-8.2 :54 MRSA/SAID SCREEN Comments: [facility] [address] [place], [address] MRSA+SAID SCRN See Note (Normal) Comments: MRSA/SAID SCRNS. AUREUS S. aureus NegativeMRSA MRSA Negative :54 Partial Thromboplast Time Comments: [facility] [address] [place], [place], [address] PTT 40.7 s (Abnormal) Range: 24.1-36.2 :54 Prothrombin Time w/INR Comments: [facility] [address] [place], [address] INR 1.1 (Normal) PROTIME 14.3 s (Normal) Range: 11.7-14.9 :55 CBC W/Diff, Automated Comments: [facility] I[address] [place], [address] Absolute Lymph 1.18 {X10_3/ul} (Normal) [...] 4.2-5.4 WBC 13.8 K/mm3 (Abnormal) Range: 4.4-11.0 63-Acj-14641:55 Comprehensive Metabolic Profil Comments: [facility] Sjpcsojciv7[address] [place], [address] GAP 12 (Normal) Range: 5-15 CO2 24.0 [...] DIABETES MELLITUS per A.D.A. criteria. :22 MAGNESIUM (22114) Comments: PATIENT NOT FASTINGPERFORMED BY: LabKalkaska [facility] Center6370 [facility] [id number] Magnesium, Serum 1.5 mg/dL (Abnormal) Range: 1.6-2.3 :22 POTASSIUM SERUM (94711) Comments: PATIENT NOT FASTINGPERFORMED BY: [facility]6370 [facility] [id number] Potassium, Serum 4.0 mmol/L (Normal) Range: 3.5-5.2 :13 Rapid Flu (69628 x 2) Influenza A Ag negative (Normal) :42 VITAMIN B12 AND FOLATES Comments: PATIENT NOT FASTINGPERFORMED BY: [facility]6370 [facility] [id number] (75325) Folate (Folic Acid), Serum 18.3 ng/mL (Normal) Comments: A serum folate concentration of less than 3.1 ng/mL isconsidered to represent clinical deficiency. Vitamin B12 650 pg/mL (Normal) Range: 211-946 :42 TSH (57626) Comments: PATIENT NOT FASTINGPERFORMED BY: LabKalk[facility] Center6370 [facility] [id number] TSH 1.610 {uIU/mL} (Normal) Range: 0.450-4.500 67-Hal-165986:42 Metabolic Panel, Comprehensive Comments: PATIENT NOT FASTINGPERFORMED BY: [facility] BBQKalkaska Memorial [facility] Center6370 [facility] [id number] (15135) ALT (SGPT) 9 [iU]/L (Normal) Range: 0-32 [...] (Normal) Range: 65-99 :26 HgA1C , Office (06573) HgA1C , Office 6.8 % (Normal) Range: 4.6 - 7.1 :26 Blood Glucose , Office (94431) Blood Glucose , Office 110 (Normal) :10 Culture, Body Fluid Comments: [facility] Wofdvrpocy9182 [facility] [place], [address] ; Another doc CUBF See [...] Fluid RBC, WBC AND Comments: LEFT KNEELEFT KNEEWOhioHealth [facility] Iuyqbshwcx0075 [facility] [place], [address] ; another doc Diff PATH [...] (Normal) :30 Crystals, Body Fluid Comments: LEFT [facility] [address] [place], [address] PATH REV Reviewed (Normal) SOURCE/BF SYNOVIAL (Normal) CRYSTALS/BF SEE PATH REV (Normal) :30 Culture, Body Fluid Comments: [facility] [address] [place], [address] CUBF See Note (Normal) Comments: List Antibiotics Last 48 Hours? UNKList Antibiotics to be Started? UNKComments: LEFT KNEEGram StainCentrifuged Specimen? Culture performed on centrifuged specimen Gram Stain 2+ Red Blood Donya ls No White Blood Cells No organisms seen Body Fluid CultNO GROWTH IN 14 DAYS Cult, AnaerobicNo growth in 5 days. :48 CBC W/Diff, Automated Comments: [facility] [address] [place], [address] Absolute Lymph 2.23 {X10_3/ul} (Normal) [...] 4.2-5.4 WBC 7.0 K/mm3 (Normal) Range: 4.4-11.0 8-Fit-654917:48 Comprehensive Metabolic Profil Comments: [facility] Irnkhuhotm64[address] [place], [place], [address] GAP 10 (Normal) Range: 5-15 CO2 29.0 [...] 7-18 GLU 99 mg/dL (Normal) Range: 70-110 29-Wzw-19151:32 Comprehensive Metabolic Profil Comments: [facility] [address]prj[address] [place], [address] GAP 8 (Normal) Range: 5-15 CO2 31.0 [...] <126 mg/dLsuggests IMPAIRED HOMEOSTASIS per A.D.A. criteria. 81-Xqt-59299:32 Culture, Urine Comments: [facility] Zcmcsxgioh7041 [facility] [address]. [place], [place], [address] CUUR See Note (Normal) Comments: Urine CultureORGANISM [...] indicates non-formulary drug at [facility]. Approval by Infectious Disease Specialist required before non- formulary drugs may be ordered and/or dispensed. 17-Xfn-327595:08 Urinalysis, Complete Comments: How was Urine Obtained? CLEAN [facility] Gzdvvagmje1084 [facility] [address]. [place], [place], [address] MUCUS, URINE 0 SEEN {/hpf} (Normal) BACTERIA [...] (Normal) COLOR Yellow (Normal) :56 POTASSIUM SERUM (86404) Comments: PATIENT NOT FASTINGPERFORMED BY: NiupaiSt. Lawrence Rehabilitation CenterKzucnf3125 [facility] [id number] Potassium, Serum 4.4 mmol/L (Normal) Range: 3.5-5.2 :56 MAGNESIUM (06406) Comments: PATIENT NOT FASTINGPERFORMED BY: NiupaiSt. Lawrence Rehabilitation CenterTuplxa8559 [facility] [id number] Magnesium, Serum 1.5 mg/dL (Abnormal) Range: 1.6-2.3 :29 CBC WITH MANUAL DIFF Comments: PATIENT WAS FASTINGPERFORMED BY: NiupaiSt. Lawrence Rehabilitation CenterPumyfj9989 [facility] [id number] Information: [id number] (32541) Immature Grans (Abs) 0.0 {x10E3/uL} (Normal) Range: [...] 3.77-5.28 WBC 5.8 {x10E3/uL} (Normal) Range: 3.4-10.8 7-Efs-496963:15 CBC, Platelets & Auto Diff Comments: PATIENT NOT FASTINGPERFORMED BY: [facility] Rmqbll6554 [facility] [id number] (02606) Immature Grans (Abs) 0.0 {x10E3/uL} (Normal) Range: [...] 3.77-5.28 WBC 14.0 {x10E3/uL} (Abnormal) Range: 3.4-10.8 4-Hap-917049:15 Metabolic Panel, Comprehensive Comments: PATIENT NOT FASTINGPERFORMED BY: NiupaiSt. Lawrence Rehabilitation CenterShwbbf5306 [facility] [id number] (21653) ALT (SGPT) 14 [iU]/L (Normal) Range: 0-32 [...] Glucose, Serum 98 mg/dL (Normal) Range: 65-99 61-Irb-116172:28 Metabolic Panel, Comments: PATIENT WAS FASTINGPERFORMED BY: NiupaiSt. Lawrence Rehabilitation CenterVmwgtu9342 [facility] [id number] Information: [id number] Comprehensive (29710) ALT (SGPT) 13 [iU]/L (Normal) Range: 0-32 [...] Glucose, Serum 110 mg/dL (Abnormal) Range: 65-99 4-Hzi-663181:54 Urinalysis, Office (68820) UA - LEUKOCYTE ESTERASE Trace (Normal) UA - NITRITE Negative (Normal) URINE UROBILINGN JEWELS TIMED Normal mg/dL (Normal) UA - PROTEIN Negative mg/dL (Normal) UA - PH 6 (Abnormal) UA - BLOOD Negative (Normal) UA - SPECIFIC GRAVITY 1.015 (Normal) UA - KETONES Moderate mg/dL (Normal) UA - BILIRUBIN Negative (Normal) UA - GLUCOSE Negative (Normal) 31-Req-077514:21 Basic Metabolic Profile (BMP) Comments: [facility] [address]dfgtkw[address] [place], [address] GAP 9 (Normal) Range: 5-15 [...] 200 mg/dLsuggests DIABETES MELLITUS per A.D.A. criteria. 65-Rli-718863:21 CBC W/Diff, Automated Comments: [facility] [address]myv[address] [place], [address] Absolute Lymph 3.53 {X10_3/ul} (Normal) [...] 4.2-5.4 WBC 13.8 K/mm3 (Abnormal) Range: 4.4-11.0 42-Mki-843224:21 Urinalysis, Complete Comments: Order Date: 04/25/16How was Urine Obtained? [facility] Pzsrpcgvfz4819 [place], [address] MUCUS, URINE 0 SEEN {/hpf} [...] (Normal) CLARITY Cloudy (Normal) COLOR Yellow (Normal) 19-Xco-694964:20 Lactic Acid Comments: [facility] [address]gsaax[address] [place], [address] LACTIC ACID 4.8 mmol/L (Abnormal) Range: 0.4-2.0 Comments: Critical Result(s) Called at: 19:26:18 04/25/2016 by:Tiffany Oliva RN :32 CBC W/Diff, Automated Comments: [facility] [address]hspj[address] [facility] [address] [place], [place], [address] Absolute Lymph 1.94 {X10_3/ul} (Normal) Range: 0.83-4.51 [...] Comprehensive Metabolic Profil Comments: [facility] Hpwhqlmfij[address] [place], [address] GAP 9 (Normal) Range: 5-15 [...] 126 mg/dLsuggests DIABETES MELLITUS per A.D.A. criteria. 01-Xij-024711:01 CBC W/Diff, Automated Comments: [facility] [id number] [place], [place], [id number] Absolute Lymph 2.12 {X10_3/ul} (Normal) Range: 0.83-4.51 [...] 4.2-5.4 WBC 9.9 K/mm3 (Normal) Range: 4.4-11.0 [id number] CRP Comments: [facility] [id number] [place], [address] C-REACTIVE PROT < 2.90 mg/L (Normal) Range: 0.0-3.0 Comments: C-Reactive Protein (CRP) provides useful information for thediagnosis, therapy and monitoring of inflammatory processesand associated diseases. For the evaluation of Relative Riskfor Cardiovascular Dise ase, a High Sensitivity CRP (HSCRP)should be ordered. [id number] Erythrocyte Sed Rate Comments: [facility] [id number] [place], [place], [id number] SED RATE 10 mm/h (Normal) Range: 0-30 [id number] CK-MB Quantitative and Index Comments: 'TROP' Serial specimen #1, #2, #3, or #4: 1'CKMB' Serial Specimen #1, #2 or #3? [facility] [id number] [place], [place], [id number] CKRI 1.5 % (Abnormal) Range: 0.0-1.4 Comments: RELATIVE INDEX >1.5% IS PRESUMPTIVELY POSITIVE CPKMB 1.0 ng/mL (Normal) Range: 0.0-5.0 Comments: CK-MB and RI Interpretation MB Relative Index Non-AMI <or= 5 NA Indeterminate > 5 <or= 4 AMI > 5 > 4 CPK TOTAL 65 U/L (Normal) Range: 26-192 [id number]:13 Myoglobin, Serum Comments: [facility] (refer to report for specific site)refer to report for address and phone number Myoglobin, Ser 42 ng/mL (Normal) Range: 25-58 Comments: Performed at: [address] [id number] Director: Edil Robertson PhD, Phone: [phone] 61-Ygl-944880:13 Troponin-I Comments: 'TROP' Serial specimen #1, #2, #3, or #4: 1'CKMB' Serial Specimen #1, #2 or #3? 1[facility] [address] [place] [address], [id number] TROPONIN-I < 0.02 ng/mL (Normal) Comments: TROPONIN-I EXPECTED VALUES <0.05 NEGATIVE 0.06 - 0.59 AT RISK OF IN > OR = 0.60 SUGGEST IN 32-Uio-221996:19 URINE HANSA CULTURE-JEWELS COL Comments: PATIENT NOT FASTINGPERFORMED BY: [address] [id number] Information: SRC:[facility] [id number] COUNT ([id number]) Antimicrobial MIHEAD (Normal) Comments: S = Susceptible; [...] mL (Abnormal) Urine Final report Culture,Comprehensive (Abnormal) 17-Fzw-338354:54 Urinalysis, Office (90458) UA - LEUKOCYTE ESTERASE Small (Normal) UA - NITRITE Positive (Normal) URINE UROBILINGN JEWELS TIMED Normal mg/dL (Normal) UA - PROTEIN Trace mg/dL (Normal) UA - PH 7 (Normal) UA - BLOOD Negative (Normal) UA - SPECIFIC GRAVITY 1.025 (Normal) UA - KETONES Small mg/dL (Normal) UA - BILIRUBIN Small (Normal) UA - GLUCOSE Negative (Normal) 03-Pvf-963594:38 Blood Glucose , Office (29593) Blood Glucose , Office 85 (Normal) :38 Basic Metabolic Profile (BMP) Comments: Is Patient Taking Vitamins or Folic Acid Supplements? [facility] Kzwdxxtytr[address] [place], [place], [address] GAP 9 (Normal) Range: 5-15 CO2 28.0 [...] Vitamins or Folic Acid Supplements? [facility] Edfwitwwpy9759 [address] [place], [place], [address] FOLATES 13.40 ng/mL (Normal) Range: 3.1-17.5 :38 Vitamin B12 723 pg/mL (Normal) Comments: [facility] Xzwudpgfyn1993 [address] Robert, [id number] Range: 211-911 :32 CBC W/Diff, Automated Comments: [facility] Sqvcmczuyy[address] [place], [address] ; ordered by Dr. Colmenares Absolute Lymph [...] Comprehensive Metabolic Profil Comments: [facility] Gsgasswdem15[address] [place], [place], [address] GAP 5 (Normal) Range: 5-15 CO2 31.0 [...] mg/dL (Normal) Range: 70-110 :03 LIPID PANEL (28081) Comments: PATIENT WAS FASTINGPERFORMED BY: CB [facility] Zqrrgt9313 [facility] [id number] BY: BN [facility] [address] [id number] LDL/HDL Ratio 3.2 {ratio_units} (Normal) Range: 0.0-3.2 [...] 1, 25-DIHYDROXY Comments: PATIENT WAS FASTINGPERFORMED BY: [employer] [facility] [id number] BY: [place] [id number] (08157) Calcitriol(1,25 di-OH Vit D) 51.7 pg/mL (Normal) Range: 19.9-79.3 :03 MICROALBUMIN: CREATININE Comments: PATIENT WAS FASTINGPERFORMED BY: [employer] [facility] [id number] BY: [place] [id number] RATIO (68269) AND (45212) Microalb/Creat Ratio 35.5 {mg/g_creat} (Abnormal) Range: 0.0-30.0 Microalbumin, Urine 42.6 ug/mL (Abnormal) Range: 0.0-17.0 Creatinine, Urine 120.0 mg/dL (Normal) Range: 15.0-278.0 :03 METABOLIC PANEL, Comments: PATIENT WAS FASTINGPERFORMED BY: [employer] Gizvtw7562 [facility] [id number] BY: [employer] BB[address] [id number] COMPREHENSIVE (91160) ALT (SGPT) 14 [iU]/L (Normal) Range: 0-32 [...] Glucose, Serum 137 mg/dL (Abnormal) Range: 65-99 39-Xnv-22210:03 CBC, PLATELETS & AUT DIFF Comments: PATIENT WAS FASTINGPERFORMED BY: CB [facility] Cptyof3639 [facility] [id number] BY: [facility] [address] [id number] Information: [id number] (42716) Immature Grans (Abs) 0.0 {x10E3/uL} (Normal) Range: [...] (THYROID STIMULATING Comments: PATIENT WAS FASTINGPERFORMED BY: [employer] [facility] [id number] BY: Niupai[address] [id number] HORMONE) (22753) TSH 3.840 {uIU/mL} (Normal) Range: 0.450-4.500 :03 VITAMIN B12 AND FOLATES Comments: PATIENT WAS FASTINGPERFORMED BY: [employer] [facility] [id number] BY: [employer] [address] [id number] (07971) Folate (Folic Acid), Serum 14.3 ng/mL (Normal) Comments: A serum folate concentration of less than 3.1 ng/mL isconsidered to represent clinical deficiency. Vitamin B12 742 pg/mL (Normal) Range: 211-946 :56 HgA1C , Office (91457) HgA1C , Office 6.8 % (Normal) Range: 4.6 - 7.1 :56 Blood Glucose , Office (60196) Blood Glucose , Office 128 (Normal) :36 CBC W/Diff, Automated Comments: [facility] [address]frlomkhl[address] [place], [place], [address] Absolute Lymph 2.25 {X10_3/ul} (Normal) Range: 0.83-4.51 [...] Comprehensive Metabolic Profil Comments: [facility] [address] [place], [address] GAP 8 (Normal) Range: 5-15 CO2 28.0 [...] 126 mg/dLsuggests DIABETES MELLITUS per A.D.A. criteria. 0-Zbg-619090:12 ANTINUCLEAR ANTIBODIES DIRECT Comments: [facility] (refer to report for specific site)refer to report for address and phone number EVERTON-DIRECT Negative (Normal) Comments: Performed at: - [facility] [id number] Director: Edil Robertson PhD, Phone: [phone] 2-Fmx-817424:12 CBC W/Diff, Automated Comments: [facility] Rxxuwtwnqs33[address] [place], [address] Absolute Lymph 1.93 {X10_3/ul} (Normal) [...] report for address and phone number ANTI-CCP [id number] 4 {units} (Normal) Range: 0-19 Comments: Negative <20 Weak positive 20 - 39 Moderate positive 40 - 59 Strong positive >59 :12 Comprehensive Metabolic Profil Comments: [facility] Zojgjfhnic97[address] [place], [place], [address] GAP 6 (Normal) Range: 5-15 CO2 33.0 [...] 7-18 GLU 95 mg/dL (Normal) Range: 70-110 9-Hts-887321:12 Hep B Surface Antibodies Comments: [facility] (refer to report for specific site)refer to report for address and phone number Hep B Loi AB Reactive (Normal) Comments: Non Reactive: Inconsistent with immunity, less than 10 mIU/mL Reactive: Consistent with immunity, greater than 9.9 mIU/mL 4-Csn-236917:12 Hepatitis B Surface Ag Comments: [facility] (refer to report for specific site)refer to report for address and phone number HB SURF AG Negative (Normal) 0-Zdl-820616:12 Hepatitis B Core AB IgM Comments: [facility] (refer to report for specific site)refer to report for address and phone number HB CORE PY12215 Negative (Normal) Comments: Performed at: - [facility] [id number] Director: Edil Robertson PhD, Phone: [phone] at: 2Q - [facility] FBM2060 [place], [place] [id number] Director: Jared Rodriguez PhD, Phone: [phone] at: - [facility] [id number] Director: Dylan Matthews MD, Phone: [phone] 5-Lwf-641985:12 Hepatitis C Antibodies Comments: [facility] (refer to [...] a more specific supplemental or PCR testing. [facility] offers HCV Ab w/Reflex to Verification test #[id number]. :12 HLA B27 Negative (Normal) Comments: [facility] (refer to report for specific site)refer to report for address and phone number Comments: HLA-B*27 NegativeHLA allele interpretation for all loci based on IMGT/HLAdatabase version 3.15A [facility] CenterIA ID Number [id number] test was performed using PCR (Polymerase ChainReaction)/SSOP (Sequence Specific Oligonucleotide Probes)technique. SBT (Sequence Based Typing) and/or SSP(Sequence Specific Primers) may be used as supplementalmethods when necessary. Please contact HLA CustomerService at [phone] if you have any questions. Director of HLA Laboratory Dr Jared Rodriguez, PhD :12 Rheumatoid Factor Comments: [facility] Qaywnxkcmn34[address] [place], [address] RHEUMATOID FAC < 10.0 {IU/mL} (Normal) 0-Jwu-616935:12 Vitamin D,25 Hydroxy Comments: [facility] [address]zzecqiwr3[address] [place], [address] Vitamin D 25-OH 50.9 ng/mL (Normal) Comments: Vitamin D 25(OH) Status Range Deficiency <20 ng/mL (50nmol/L) Insuffciency 20 - 30 ng/mL (50 - 75 nmol/L) Sufficiency 30 - 100 ng/mL (75 - 250 nmol/L) Toxicity >100 ng/mL (>250 nmol/L) 21-Vue-78489:37 LIPID PANEL (30291) Comments: PATIENT WAS FASTINGPERFORMED BY: [facility]UNC [facility] [id number] LDL/HDL Ratio 2.8 {ratio_units} (Normal) Range: 0.0-3.2 [...] - 169 >19 years 100 - 199 05-Zxy-17363:37 CBC, PLATELETS & AUT DIFF Comments: PATIENT WAS FASTINGPERFORMED BY: [facility] LabCoSocial 2 StepFvvkni5656 [facility] [id number] Information: [id number] (17611) Immature Grans (Abs) 0.0 {x10E3/uL} (Normal) Range: [...] B-12 (CYANOCOBALAMIN) Comments: PATIENT WAS FASTINGPERFORMED BY: [employer] Bmibdy0558 [place] [id number] (19105) Vitamin B12 871 pg/mL (Normal) Range: 211-946 :37 Vitamin D Hydroxy (51494) Comments: PATIENT WAS FASTINGPERFORMED BY: [facility] LabCoronado Biosciencesrp Bzhvgd0412 [address] [place]volutionDublin [place] [id number] Vitamin D, 25-Hydroxy 69.6 ng/mL (Normal) Range: 30.0-100.0 Comments: Vitamin D deficiency has been defined by the [place] ofMedicine and an Endocrine Society practice guideline as alevel of serum 25-OH vitamin D less than 20 ng/mL (1,2).The Endocrine Society went on to further define vitamin Dinsufficiency as a level between 21 and 29 ng/mL (2).1. IOM ([place] of Medicine). 2010. Dietary reference intakes for calcium and D. [place]: The National Academies Press.2. Delma MF, Mckenna ABDALLA, Dane MACKENZIE, et al. Evaluation, treatment, and prevention of vitamin D deficiency: an Endocrine Society clinical practice guideline. JCEM. 2010; 96(7):1911-30. :37 METABOLIC PANEL, COMPREHENSIVE Comments: PATIENT WAS FASTINGPERFORMED BY: [facility] Yetxjo2186 [facility] [id number]; apt. 07-01-15 (29903) ALT (SGPT) 10 [iU]/L (Normal) Range: 0-32 [...] (Abnormal) Range: 65-99 :02 HgA1C , Office (66527) HgA1C , Office 7.1 % (Normal) Range: 4.6 - 7.1 :24 EBV Panel (23013) Comments: PATIENT NOT FASTINGPERFORMED BY: [employer] BBQKalkaska Memorial Health Center6370 [facility] [id number] Interpretation: SPRCS (Normal) Comments: EBV Interpretation Chart [...] WBC Comments: PATIENT NOT FASTINGPERFORMED BY: [facility]6370 [facility] [id number] Information: [id number] (12546) Immature Grans (Abs) 0.0 {x10E3/uL} (Normal) Range: [...] 3.77-5.28 WBC 6.7 {x10E3/uL} (Normal) Range: 3.4-10.8 74-Jbf-758349:37 HANSA CULTURE-OTHER (79091) Comments: PATIENT NOT FASTINGPERFORMED BY: NiupaiGuadalupe County HospitalBrufcl0444 [facility] [id number] Information: SRC:THRT [id number] Result 1 RRF (Normal) Comments: Routine respiratory vicente Upper Respiratory Culture Final report (Normal) 48-Tll-626166:30 Rapid Strep Test, Office (88281) Rapid Strep Test, Office Negative (Normal) 06-Feb-20159:15 CBC, Platelet, No Differential Comments: PATIENT WAS FASTINGPERFORMED BY: [employer]ai Mtgpzd2418 [facility] [id number] Platelets 245 {x10E3/uL} (Normal) Range: 150-379 RDW [...] (14) Comments: PATIENT WAS FASTINGPERFORMED BY: LabCoSt. Lawrence Rehabilitation CenterAfwvhl3608 [facility] [id number] Information: [id number] ALT (SGPT) 8 [iU]/L (Normal) Range: 0-32 [...] With LDL/HDL Comments: PATIENT WAS FASTINGPERFORMED BY: [employer] [facility] BBQKalkaska Memorial Health Center6370 [facility] [id number] Ratio LDL/HDL Ratio 3.7 {ratio_units} Range: 0.0-3.2 [...] pg/mL (Normal) Comments: PATIENT WAS FASTINGPERFORMED BY: [employer] BBQKalkaska Memorial Health Center6370 [facility] [id number] :15 Range: 211-946 Vitamin D, 25-Hydroxy 56.4 ng/mL (Normal) Comments: PATIENT WAS FASTINGPERFORMED BY: [facility]6370 [facility] [id number] :15 Range: 30.0-100.0 Comments: Vitamin D deficiency has been defined by the [place] ofMedicine and an Endocrine Society practice guideline as alevel of serum 25-OH vitamin D less than 20 ng/mL (1,2).The Endocrine Society went on to further define vitamin Dinsufficiency as a level between 21 and 29 ng/mL (2).1. IOM ([place] of Medicine). 2010. Dietary reference intakes for calcium and D. [place]: The National Academies Press.2. Mckenna Christie, Dane MACKENZIE, et al. Evaluation, treatment, and prevention of vitamin D deficiency: an Endocrine Society clinical practice guideline. JCEM. 2010; 96(7):1911-30. :33 HgA1C , Office (63791) HgA1C , Office 6.4 % (Normal) Range: 4.6 - 7.1 :27 Potassium Comments: Test performed at:[facility] [address] [place] [address] K 3.5 mmol/L (Normal) Range: 3.5-5.1 :59 Vitamin D Hydroxy (96337) Comments: PATIENT NOT FASTINGPERFORMED BY: [place] [id number] Vitamin D, 25-Hydroxy 40.6 ng/mL (Normal) Range: 30.0-100.0 Comments: Vitamin D deficiency has been defined by the [place] ofMedicine and an Endocrine Society practice guideline as alevel of serum 25-OH vitamin D less than 20 ng/mL (1,2).The Endocrine Society went on to further define vitamin Dinsufficiency as a level between 21 and 29 ng/mL (2).1. IOM ([place] of Medicine). 2010. Dietary reference intakes for calcium and D. [place]: The National Academies Press.2. Delma RIVERA, Mckenna ABDALLA, Dane MACKENZIE, et al. Evaluation, treatment, and prevention of vitamin D deficiency: an Endocrine Society clinical practice guideline. JCEM. 2010; 96(7):1911-. :59 T4, FREE (THYROXINE) Comments: PATIENT NOT FASTINGPERFORMED BY: [employer]70 [place] [id number] Information: [id number] (75936) T4,Free(Direct) 1.22 ng/dL (Normal) Range: 0.82-1.77 :59 T3, FREE (TRIDOTHYRONINE) (63059) Comments: PATIENT NOT FASTINGPERFORMED BY: Brand EmbassyDublin [place] [id number] Triiodothyronine,Free,Serum 3.2 pg/mL (Normal) Range: 2.0-4.4 :59 TSH (43497) Comments: PATIENT NOT FASTINGPERFORMED BY: LabKalkaska [facility] Center6370 [facility] [id number] TSH 2.460 {uIU/mL} (Normal) Range: 0.450-4.500 :59 SED RATE ERYTHROCYTE (41670) Comments: PATIENT NOT FASTINGPERFORMED BY: LabKalkaska [facility] Center6370 [facility] [id number] Sedimentation Rate-Westergren 3 mm/h (Normal) Range: 0-40 :59 C-REACTIVE PROTEIN (26811) Comments: PATIENT NOT FASTINGPERFORMED BY: [facility]6370 [facility] [id number] C-Reactive Protein, Quant 2.6 mg/L (Normal) Range: 0.0-4.9 :06 TSH (37139) Comments: PATIENT NOT FASTINGPERFORMED BY: LabKalk[facility] Center6370 [facility] [id number] TSH 1.920 {uIU/mL} (Normal) Range: 0.450-4.500 :06 CBC with auto diff Comments: PATIENT NOT FASTINGPERFORMED BY: [facility]6370 [facility] [id number] Information: [id number] (73836) Immature Grans (Abs) 0.0 {x10E3/uL} (Normal) Range: [...] 3.77-5.28 WBC 7.9 {x10E3/uL} (Normal) Range: 3.4-10.8 2-Eng-487782:06 METABOLIC PANEL, COMPREHENSIVE Comments: PATIENT NOT FASTINGPERFORMED BY: LabCoSt. Lawrence Rehabilitation CenterVkilwm5623 [facility] [id number] (52593) ALT (SGPT) 6 [iU]/L (Normal) Range: 0-32 [...] Glucose, Serum 111 mg/dL (Abnormal) Range: 65-99 4-Phe-775857:09 URINE HANSA CULTURE (JEWELS Comments: PATIENT NOT FASTINGPERFORMED BY: LabCoSt. Lawrence Rehabilitation CenterInyyxf2231 [facility] [id number] Information: SRC:[facility] [id number] COL COUNT) (27264) Result 1 CNSNSS (Abnormal) Comments: Coagulase negative [...] S Urine Final report Culture,Comprehens (Abnormal) ananth 5-Czo-799469:54 Urinalysis, Office (82353) UA - LEUKOCYTE ESTERASE Negative (Normal) UA - NITRITE Negative (Normal) URINE UROBILINGN JEWELS TIMED Normal mg/dL (Normal) UA - PROTEIN Negative mg/dL (Normal) UA - PH 6.5 (Normal) UA - BLOOD Negative (Normal) UA - SPECIFIC GRAVITY 1.015 (Normal) UA - KETONES Negative mg/dL (Normal) UA - BILIRUBIN Negative (Normal) UA - GLUCOSE Negative (Normal) 62-Kut-637017:40 Urine Drug Screen (VISTA) Comments: Has pt arrived? YTest performed at:[facility] [address]ktblzcjwh[address] [place] [address] THC NEGATIVE (Normal) PCP NEGATIVE [...] MUST BE ORDERED SEPARATELY. USE TESTMNEMONIC: UTCA 14-Ily-191621:25 Acetaminophen (Tylenol) Level Comments: Test performed at:[facility] [address]ha[address] [place] [address] ACETAMINOPHEN < 2.0 ug/mL (Abnormal) Range: 10.0-30.0 31-Wxi-737339:25 Basic Metabolic Profile (BMP) Comments: Test performed at:[facility] [address]xp[address] [place] [address] GAP 8 (Normal) Range: 5-15 [...] 126 mg/dLsuggests DIABETES MELLITUS per A.D.A. criteria. 24-Hcd-531931:25 CBC W/Diff, Automated Comments: Test performed at:[facility] Xnjxmdbjha[address] [place], [place] [address] Absolute Lymph 0.55 {X10_3/ul} (Abnormal) Range: 0.83-4.51 [...] 4.2-5.4 WBC 11.3 K/mm3 (Abnormal) Range: 4.4-11.0 20-Afc-851282:25 Partial Thromboplast Time Comments: Test performed at:[facility] Ulvuqcymmz4333 [facility] [place] [address] PTT 31.9 s (Normal) Range: 24.1-36.2 73-Aai-491487:25 Prothrombin Time w/INR Comments: Test performed at:[facility] Xffupmfybh42[address] [place] [address] INR 1.1 (Normal) PROTIME 14.0 s (Normal) Range: 11.7-14.9 :22 Basic Metabolic Profile (BMP) Comments: Test performed at:[facility] Irtmaicpbv58[address] [place] [address] GAP 8 (Normal) Range: 5-15 CO2 31.0 [...] Diff Comments: Test performed at:[facility] [address] [place] [address] MPV 10.0 fL (Normal) Range: 6.2-12.0 [...] Diff Comments: Test performed at:[facility] Gykqftzqtd6472 [facility] [place] [address] MPV 10.4 fL (Normal) Range: [...] (BMP) Comments: Test performed at:[facility] Qevbvvandl2123 [facility] [place] [address] GAP 8 (Normal) Range: 5-15 [...] 126 mg/dLsuggests DIABETES MELLITUS per A.D.A. criteria. 88-Jqg-31452:52 CBC-Complete Blood Cnt No Diff Comments: Test performed at:[facility] Mzuwdkqrwi8421 [facility] [address] [place], [place] [address] MPV 10.0 fL (Normal) Range: 6.2-12.0 PLT [...] 4.2-5.4 WBC 8.7 K/mm3 (Normal) Range: 4.4-11.0 45-Sac-096511:00 Bedside Glucose Comments: Test performed at:[facility] Budligxabl8719 [place] [address] BEDSIDE GLU 138 mg/dL (Abnormal) Range: 70-110 Comments: No Action RequiredMANAGEMENT OF PATIENT CARE PER NURSING PROTOCOL 41-Tgk-035986:12 Bedside Glucose Comments: Test performed at:[facility] Xxiodchxam5788 [place] [address] BEDSIDE GLU 108 mg/dL (Normal) Range: 70-110 Comments: No Action RequiredMANAGEMENT OF PATIENT CARE PER NURSING PROTOCOL 89-Nqo-81367:07 VITAMIN B-12 (CYANOCOBALAMIN) Comments: PATIENT WAS FASTINGPERFORMED BY: [facility] Hcgxda6637 [facility] [id number] (38896) Vitamin B12 498 pg/mL (Normal) Range: 211-946 62-Wmy-20548:07 MICROALBUMIN: CREATININE RATIO Comments: PATIENT WAS FASTINGPERFORMED BY: NiupaiSt. Lawrence Rehabilitation CenterPjywdr1959 [facility] [id number] (92689) AND (32120) Microalb/Creat Ratio 24.7 {mg/g_creat} (Normal) Range: 0.0-30.0 Microalbumin, Urine 36.2 ug/mL (Abnormal) Range: 0.0-17.0 Creatinine, Urine 146.6 mg/dL (Normal) Range: 15.0-278.0 :07 CBC W/AUTO DIFF WBC Comments: PATIENT WAS FASTINGPERFORMED BY: NiupaiGuadalupe County HospitalPuugxm3273 [facility] [id number] Information: [id number] (18564) Immature Grans (Abs) 0.0 {x10E3/uL} (Normal) Range: [...] 7.0 {x10E3/uL} (Normal) Range: 3.4-10.8 :07 TSH (49113) Comments: PATIENT WAS FASTINGPERFORMED BY: NiupaiSt. Lawrence Rehabilitation CenterPohfmo4476 [facility] [id number] TSH 4.510 {uIU/mL} (Abnormal) Range: 0.450-4.500 :07 LIPID PANEL (86279) Comments: PATIENT WAS FASTINGPERFORMED BY: LabCoronado BiosciencesSt. Lawrence Rehabilitation CenterXnafcj8204 [facility] [id number] VLDL Cholesterol Peg VLDLCH mg/dL (Normal) Range: [...] PANEL, COMPREHENSIVE Comments: PATIENT WAS FASTINGPERFORMED BY: NiupaiSt. Lawrence Rehabilitation CenterSgueqc4842 [facility] [id number] (95635) ALT (SGPT) 10 [iU]/L (Normal) Range: 0-32 [...] (Abnormal) Range: 65-99 :22 HgA1C , Office (79296) HgA1C , Office 6.9 % (Normal) Range: [...] Results called on 08/07/14152 by Zohreh THOMPSON ([facility]) [phone]. Comments: Copy of report sent to Infection Control Printer MS#[id number] 08/07/14 4274 [facility]. RESULTS PRINTED MS#[id number] S. AUREUS S. aureus PositiveMRSA MRSA Negative 11-Qwr-91177:34 VITAMIN B-12 (CYANOCOBALAMIN) Comments: PATIENT WAS FASTINGPERFORMED BY: [employer] BBQKalkaska Memorial Health Center6370 [facility] [id number] (39105) Vitamin B12 1631 pg/mL (Abnormal) Range: 211-946 :34 CBC W/AUTO DIFF WBC Comments: PATIENT WAS FASTINGPERFORMED BY: LabCoSt. Lawrence Rehabilitation CenterIztyca5170 [facility] [id number] Information: [id number] (83918) Immature Grans (Abs) 0.0 {x10E3/uL} (Normal) Range: [...] 3.77-5.28 WBC 4.0 {x10E3/uL} (Normal) Range: 3.4-10.8 61-Hya-74204:34 METABOLIC PANEL, COMPREHENSIVE Comments: PATIENT WAS FASTINGPERFORMED BY: [facility] HospitalCoAndrew Ville 7377170 [facility] [id number] (51423) ALT (SGPT) 10 [iU]/L (Normal) Range: 0-32 [...] mg/dL (Abnormal) Range: 65-99 :34 LIPID PANEL (86728) Comments: PATIENT WAS FASTINGPERFORMED BY: LabCoSt. Lawrence Rehabilitation CenterThebvz8577 [facility] [id number] LDL/HDL Ratio 3.3 {ratio_units} (Abnormal) Range: 0.0-3.2 [...] Examination Comments: PATIENT WAS FASTINGPERFORMED BY: [facility] Havsiw3664 [facility] [id number] Bacteria None seen (Normal) Epithelial Cells (non renal) 0-10 {/hpf} (Normal) Range: 0 - 10 RBC None seen {/hpf} (Normal) Range: 0 - 2 WBC 0-5 {/hpf} (Normal) Range: 0 - 5 :12 TSH (75477) Comments: PATIENT WAS FASTINGPERFORMED BY: [facility] Erkmde1546 [facility] [id number]; non-emergent till apt this week TSH 1.560 {uIU/mL} (Normal) Range: 0.450-4.500 :12 URINALYSIS, W/ MICRO (05843) Comments: PATIENT WAS FASTINGPERFORMED BY: LabNorth[facility] Center Wvfeqw9825 [facility] [id number] Microscopic Examination See below: (Normal) Comments: Microscopic was indicated and was performed. Microscopic Examination MICRON (Normal) Comments: Microscopic follows if indicated. Nitrite, Urine Negative (Normal) Urobilinogen,Semi-Qn 0.2 mg/dL (Normal) Range: 0.0-1.9 Bilirubin Negative (Normal) Occult Blood Negative (Normal) Ketones Negative (Normal) Glucose Negative (Normal) Protein Trace (Normal) WBC Esterase Negative (Normal) Appearance Clear (Normal) Urine-Color Yellow (Normal) pH 8.0 (Abnormal) Range: 5.0-7.5 Specific Ronceverte 1.014 (Normal) Range: 1.005-1.030 :12 Vitamin D Hydroxy (94297) Comments: PATIENT WAS FASTINGPERFORMED BY: LabNorthwest [facility] Center Kfrxac9300 [facility] [id number] Vitamin D, 25-Hydroxy 42.2 ng/mL (Normal) Range: 30.0-100.0 Comments: Vitamin D deficiency has been defined by the [place] ofMedicine and an Endocrine Society practice guideline as alevel of serum 25-OH vitamin D less than 20 ng/mL (1,2).The Endocrine Society went on to further define vitamin Dinsufficiency as a level between 21 and 29 ng/mL (2).1. IOM (Edwall of Medicine). 2010. Dietary reference intakes for calcium and D. [place]: The National Academies Press.2. Delma MF, Mckenna ABDALLA, Dane MACKENZIE, et al. Evaluation, treatment, and prevention of vitamin D deficiency: an Endocrine Society clinical practice guideline. JCEM. 2010; 96(7):1911-30. :12 MICROALBUMIN: CREATININE RATIO Comments: PATIENT WAS FASTINGPERFORMED BY: Outcome Referrals6370 [facility] [id number] (61044) AND (96178) Microalb/Creat Ratio 4.7 {mg/g_creat} (Normal) Range: 0.0-30.0 Creatinine, Urine 49.4 mg/dL (Normal) Range: 15.0-278.0 Microalbumin, Urine 2.3 ug/mL (Normal) Range: 0.0-17.0 :12 METABOLIC PANEL, Comments: PATIENT WAS FASTINGPERFORMED BY: ExactTarget6370 [facility] [id number] Information: [id number] COMPREHENSIVE (49326) ALT (SGPT) 12 [iU]/L (Normal) Range: 0-32 [...] mg/dL (Abnormal) Range: 65-99 :12 LIPID PANEL (66741) Comments: PATIENT WAS FASTINGPERFORMED BY: AviacodeUNC Health Southeastern [id number] LDL/HDL Ratio 2.7 {ratio_units} (Normal) Range: 0.0-3.2 [...] B-12 (CYANOCOBALAMIN) Comments: PATIENT WAS FASTINGPERFORMED BY: AviacodeUNC Health Southeastern [id number] (47069) Vitamin B12 287 pg/mL (Normal) Range: 211-946 :34 HgA1C , Office (01522) HgA1C , Office 6.3 % (Normal) Range: 4.6 - 7.1 :55 Creatine Kinase Total (18972) Comments: PATIENT NOT FASTINGPERFORMED BY: Skelta Software Active MediaNovant Health [facility] [id number] Creatine Kinase,Total,Serum 105 U/L (Normal) Range: 24-173 :55 TSH (75715) Comments: PATIENT NOT FASTINGPERFORMED BY: Skelta Software [employer] [facility] [id number] TSH 1.590 {uIU/mL} (Normal) Range: 0.450-4.500 :55 METABOLIC PANEL, Comments: PATIENT NOT FASTINGPERFORMED BY: CLARITA [facility] Dfftxh4867 Vivek Brown [place] [id number] Information: [id number] COMPREHENSIVE (06458) ALT (SGPT) 13 [iU]/L (Normal) Range: 0-32 [...] (Abnormal) Range: 65-99 :33 HgA1C , Office (89379) HgA1C , Office 6.7 % (Normal) Range: 4.6 - 7.1 :46 MICROALBUMIN: CREATININE RATIO Comments: PATIENT WAS FASTINGPERFORMED BY: Niupai Vcymsf9278 [facility] [place] [id number] (29732) AND (97304) Microalb/Creat Ratio 20.0 {mg/g_creat} (Normal) Range: 0.0-30.0 Microalbumin, Urine 21.7 ug/mL (Abnormal) Range: 0.0-17.0 Creatinine, Urine 108.5 mg/dL (Normal) Range: 15.0-278.0 :46 TSH (16150) Comments: PATIENT WAS FASTINGPERFORMED BY: Niupai Jszgwr1525 [facility] [place] [id number] TSH 2.670 {uIU/mL} (Normal) Range: 0.450-4.500 :46 Vitamin D Hydroxy (41199) Comments: PATIENT WAS FASTINGPERFORMED BY: Niupai Fwgqic9986 [facility] [place] [id number] Vitamin D, 25-Hydroxy 42.9 ng/mL (Normal) Range: 30.0-100.0 Comments: Vitamin D deficiency has been defined by the Edwall ofMedicine and an Endocrine Society practice guideline as alevel of serum 25-OH vitamin D less than 20 ng/mL (1,2).The Endocrine Society went on to further define vitamin Dinsufficiency as a level between 21 and 29 ng/mL (2).1. IOM (Edwall of Medicine). 2010. Dietary reference intakes for calcium and D. [place]: The National Academies Press.2. Delma MF, Mckenna [place], Loree-Werner MACKENZIE, et al. Evaluation, treatment, and prevention of vitamin D deficiency: an Endocrine Society clinical practice guideline. JCEM. 2010; 96(7):1911-30. :46 CBC, PLATELETS & AUT DIFF Comments: PATIENT WAS FASTINGPERFORMED BY: The Bucket BBQNorth[facility] Center Yahegn7691 [facility] [id number] Information: [id number] (96103) Immature Grans (Abs) 0.0 {x10E3/uL} (Normal) Range: [...] 3.77-5.28 WBC 8.7 {x10E3/uL} (Normal) Range: 3.4-10.8 71-Mdc-204273:46 VITAMIN B-12 (CYANOCOBALAMIN) Comments: PATIENT WAS FASTINGPERFORMED BY: LabCoSt. Lawrence Rehabilitation CenterFbzhqp0957 [facility] [id number] (39004) Vitamin B12 382 pg/mL (Normal) Range: 211-946 26-Wnc-774292:46 METABOLIC PANEL, COMPREHENSIVE Comments: PATIENT WAS FASTINGPERFORMED BY: LabCoSt. Lawrence Rehabilitation CenterLiiibl4460 [facility] [id number] (75195) ALT (SGPT) 15 [iU]/L (Normal) Range: 0-32 [...] Glucose, Serum 130 mg/dL (Abnormal) Range: 65-99 68-Zak-842046:46 LIPID PANEL (10193) Comments: PATIENT WAS FASTINGPERFORMED BY: LabCoSt. Lawrence Rehabilitation CenterLladgs7375 [facility] [id number] LDL/HDL Ratio 3.4 {ratio_units} (Abnormal) Range: 0.0-3.2 LDL Cholesterol Calc 130 mg/dL (Abnormal) Range: 0-99 VLDL Cholesterol Peg 57 mg/dL (Abnormal) Range: 5-40 HDL Cholesterol 38 mg/dL (Abnormal) Comments: According to ATP-III Guidelines, HDL-C >59 mg/dL is considered anegative risk factor for CHD. Triglycerides 287 mg/dL (Abnormal) Range: 0-149 Cholesterol, Total 225 mg/dL (Abnormal) Range: 100-199 :44 HgA1C , Office (75157) HgA1C , Office 6.6 % (Normal) Range: 4.6 - 7.1 :43 CBC, Platelets & Auto Diff Comments: PATIENT NOT FASTINGPERFORMED BY: LabCoSt. Lawrence Rehabilitation CenterYsefzi0595 [facility] [id number] Information: [id number] (15563) Immature Grans (Abs) 0.0 {x10E3/uL} (Normal) Range: [...] (Normal) Range: 3.4-10.8 :43 Metabolic Panel, Basic (41997) Comments: PATIENT NOT FASTINGPERFORMED BY: [facility]6370 [facility] [id number] Calcium, Serum 9.4 mg/dL (Normal) Range: 8.6-10.2 [...] mg/dL (Abnormal) Range: 65-99 :10 HANSA CULTURE-OTHER (80819) Comments: PATIENT NOT FASTINGPERFORMED BY: [facility]6370 [facility] [id number] Information: SRC:THRT [id number] Result 1 RFMNR (Normal) Comments: Mixed growth consisting of multiple gram negative rods and routinerespiratory vicente. Upper Respiratory Culture Final report (Normal) :56 Rapid Strep Test, Office (82048) Rapid Strep Test, Office Negative (Normal) :03 Blood Glucose , Office (90381) Blood Glucose , Office 150 (Normal) :14 PPD (51979) Comments: Lot: [id number]: 12/17Amt: 0.1mlRoute: intradermalSite: R FAGiven by: ANGEL Merlos SKIN TEST INTRADERMAL TB negative (Normal) :39 HgA1C , Office (73908) HgA1C , Office 6.4 % (Normal) Range: 4.6 - 7.1 :31 Microscopic Examination Comments: PATIENT WAS FASTINGPERFORMED BY: [employer] Vmzofx7417 [facility] [id number] Bacteria Few (Normal) Mucus Threads Present (Normal) Epithelial Cells (non renal) 0-10 {/hpf} (Normal) Range: 0 - 10 RBC 0-3 {/hpf} (Normal) Range: 0 - 3 WBC 0-5 {/hpf} (Normal) Range: 0 - 5 :31 MICROALBUMIN: CREATININE RATIO Comments: PATIENT WAS FASTINGPERFORMED BY: Niupai Hszczr5604 [facility] [id number] (61936) AND (81940) Microalb/Creat Ratio 12.6 {mg/g_creat} (Normal) Range: 0.0-30.0 Microalbumin, Urine 9.2 ug/mL (Normal) Range: 0.0-17.0 Creatinine, Urine 73.3 mg/dL (Normal) Range: 15.0-278.0 :31 CBC WITH MANUAL DIFF Comments: PATIENT WAS FASTINGPERFORMED BY: Niupai Qrstbb4788 [facility] [id number] Information: [id number] (15977) Immature Grans (Abs) 0.0 {x10E3/uL} (Normal) Range: [...] COMPREHENSIVE Comments: PATIENT WAS FASTINGPERFORMED BY: LabCoSt. Lawrence Rehabilitation CenterSoebxb1157 [facility] [id number] (03474) ALT (SGPT) 14 [iU]/L (Normal) Range: 0-32 [...] (Abnormal) Range: 65-99 :31 URINALYSIS, W/ MICRO (34257) Comments: PATIENT WAS FASTINGPERFORMED BY: Brand EmbassyNovant Health Fors[facility] [id number] Microscopic Examination See below: (Normal) Microscopic Examination MICRON (Normal) Comments: Microscopic follows if indicated. Nitrite, Urine Negative (Normal) Urobilinogen,Semi-Qn 0.2 mg/dL (Normal) Range: 0.0-1.9 Bilirubin Negative (Normal) Occult Blood Negative (Normal) Ketones Negative (Normal) Glucose Negative (Normal) Protein Negative (Normal) Appearance Clear (Normal) Urine-Color Yellow (Normal) WBC Esterase Negative (Normal) pH 8.5 (Abnormal) Range: 5.0-7.5 Specific Ronceverte 1.018 (Normal) Range: 1.005-1.030 :31 LIPID PANEL (11016) Comments: PATIENT WAS FASTINGPERFORMED BY: Cellartis70 [facility] CenterSmailexUNC Health Southeastern [id number] LDL Cholesterol Calc 75 mg/dL (Normal) Range: [...] B-12 (CYANOCOBALAMIN) Comments: PATIENT WAS FASTINGPERFORMED BY: Aptito Doyle [facility] [id number] (69872) Vitamin B12 299 pg/mL (Normal) Range: 211-946 :31 Vitamin D Hydroxy (95862) Comments: PATIENT WAS FASTINGPERFORMED BY: LabCo Nzesag1768 [facility] [id number] Vitamin D, 25-Hydroxy 31.2 ng/mL (Normal) Range: 30.0-100.0 Comments: Vitamin D deficiency has been defined by the Edwall ofMedicine and an Endocrine Society practice guideline as alevel of serum 25-OH vitamin D less than 20 ng/mL (1,2).The Endocrine Society went on to further define vitamin Dinsufficiency as a level between 21 and 29 ng/mL (2).1. IOM (Edwall of Medicine). 2010. Dietary reference intakes for calcium and D. [place]: The National Academies Press.2. Delma MF, Mckenna ABDALLA, Dane MACKENZIE, et al. Evaluation, treatment, and prevention of vitamin D deficiency: an Endocrine Society clinical practice guideline. JCEM. 2010; 96(7):1911-30. :31 TSH (39228) Comments: PATIENT WAS FASTINGPERFORMED BY: [facility] Ydcbot8907 [facility] [id number] TSH 4.190 {uIU/mL} (Normal) Range: 0.450-4.500 :15 HgA1C , Office (10783) HgA1C , Office 6.4 % (Normal) Range: 4.6 - 7.1 :15 Blood Glucose , Office (68471) Blood Glucose , Office 141 (Normal) :19 [...] M.D.October 02, 2012 at 9:24 :48 PM [phone] Signed RB/RB If you are the referring physician and would like to consult with theradiologist who provided this interpretation, please contact Mame Maroi at . If this radiologist is unavailable, you will bedirected to another radiologist to assist. If you are a patient with a question regarding this report, pleasecontactyour referring physician hari benítez. Professional Interpretation Provided By: [employer]iWi[employer], Phone , These documents contain legally protected [...] on 10/02/122128 Sign by: Keith Crocker DO 96-Ptq-29009:55 Vitamin D Hydroxy (68500) Comments: PATIENT NOT FASTINGPERFORMED BY: LabCoSt. Lawrence Rehabilitation CenterJzsjam3816 [facility] [id number] Information: [id number] Vitamin D, 25-Hydroxy 39.5 ng/mL (Normal) Range: 30.0-100.0 Comments: Vitamin D deficiency has been defined by the Edwall ofMedicine and an Endocrine Society practice guideline as alevel of serum 25-OH vitamin D less than 20 ng/mL (1,2).The Endocrine Society went on to further define vitamin Dinsufficiency as a level between 21 and 29 ng/mL (2).1. IOM (Edwall of Medicine). 2010. Dietary reference intakes for [...] Valenzuela M.D.September 17, 2012 at 9:02:07 AM [phone] Signed GP/GP If you are the referring physician and would like to consult with theradiologist damaso davenport provided this interpretation, please contact Mame Mccoy at [phone]. If this radiologist is unavailable, youwill be directed to another radiologist to assist. If you are a patient wi th a question regarding this report, pleasecontactyour referring physician directly. Professional Interpretation Provided By: [employer], Phone , These documents contain l egally [...] Range: 211-946 7:31 (Normal) Comments: Performed at: [address] [id number] Director: Demarco Mccormack PhD, Phone: [phone] 17-Sep-2012 BID 0.10 mg/dL Range: 0.00-0.30 7:31 (Normal) 21-Ldu-63826:31 CBCMD ANC 3.6 3/uL (Normal) Range: 2.0-7.7 [...] IMPAIRED HOMEOSTASIS per A.D.A. criteria. :31 [facility] See Note {CFU/mL} (Normal) Comments: COLONY COUNT [...] Simpson M.D.September 13, 2012 at 2:32:10 PM [phone] Signed DL/DL If you are the referring physician and would like to consult with theradiologist who provided this interpretation, please co ntact Mame Lancaster at [phone]. If this radiologist is unavailable, youwillbe directed to another radiologist to assist. If you are a patient with a question regarding this report, pleasecont actyour referring physician directly. Professional Interpretation Provided By: [employer], Phone , These documents contain legally protected [...] 09/13/12 1437 Sign by: Theo Simpson MD 94-Ndo-64285:36 THYROID Radiology Report See Note (Normal) Comments: [...] Valenzuela M.D.September 13 13 at 2:58:06 PM [phone] Signed GP/GP If you are the referring physician and would like to consult with theradiologist who provided this interpretation, please contact Brown chaidez M.D. at [phone]. If this radiologist is unavailable, youwill be directed to another radiologist to assist. If you are a patient with a question regarding this report, pleasecontactyour refer ring physician directly. Professional Interpretation Provided By: [employer]Wi[employer], Phone , These documents contain legally protected [...] on 09/13/12 1503 Sign by: Nicolas ARAGON,Florian 59-Bfv-39676:28 CRE Comments: CALL 8665 WITH RESULTSRESULTS CALLED TO DEBBIE 09/13/12 0801 AURA DIAZ.REPORT READ BACK BY SAME . GFR 105 mL/min (Normal) GFRAA 127 mL/min (Normal) CREAT 0.6 mg/dL (Normal) Range: 0.6-1.0 :23 URINE HANSA CULTURE-JEWELS COL Comments: PATIENT NOT FASTINGPERFORMED BY: LabCoSt. Lawrence Rehabilitation CenterZgsgnd1196 [facility] [id number] Information: SRC:UR [id number] COUNT (28937) Result 1 NG36 (Normal) Comments: No growth in 36 - 48 hours. Urine Culture,Comprehensive Final report (Normal) :39 Urinalysis, Office (02675) UA - BILIRUBIN Negative (Normal) UA - BLOOD Non Hemolyzed Trace (Normal) UA - GLUCOSE Negative (Normal) UA - KETONES Negative mg/dL (Normal) UA - LEUKOCYTE ESTERASE Negative (Normal) UA - NITRITE Negative (Normal) UA - PH 6.5 (Normal) UA - PROTEIN Negative mg/dL (Normal) UA - SPECIFIC GRAVITY 1.015 (Normal) URINE UROBILINGN JEWELS TIMED Normal mg/dL (Normal) :35 HgA1C , Office (18445) HgA1C , Office 6.3 % (Normal) Range: 4.6 - 7.1 77-Jzu-28815:35 Blood Glucose , Office (37704) Blood Glucose , Office 143 (Normal) :54 Comp. Metabolic Panel (14) Comments: PATIENT WAS FASTINGPERFORMED BY: CLARITA NiupaiSt. Lawrence Rehabilitation CenterMjkpjv9817 [facility] [id number] Information: 07/08@830AM 07/09@830AM ALT (SGPT) 11 [iU]/L [...] Creatinine Clearance Comments: PATIENT WAS FASTINGPERFORMED BY: The Bucket BBQKalkaska Memorial Health Center6370 [facility] [id number] Creatinine Clearance 70 mL/min (Abnormal) Range: 88-128 Comments: The above range is based on 1.73 square meter average body surfacearea. Creatinine, Ur 24hr 777.0 {mg/24_hr} (Abnormal) Range: 800.0-1800.0 Creatinine, Urine 37.9 mg/dL (Normal) Range: 15.0-278.0 :54 Lipid Panel With LDL/HDL Comments: PATIENT WAS FASTINGPERFORMED BY: Niupai Bcothx0063 Doyle AkvolutionNovant Health Forsy[facility] Center [id number] Ratio LDL/HDL Ratio 2.6 {ratio_units} (Normal) Range: [...] Qn, 24-Hr Comments: PATIENT WAS FASTINGPERFORMED BY: Niupai Uxhgat0708 Doyle AkvolutionNovant Health Forsyth Medical Center [id number] Urine Prot,24hr calculated <30.8 {mg/24_hr} Range: 30.0-150.0 (Normal) Protein,Total,Urine <1.5 mg/dL (Normal) Range: 0.0-15.0 Comments: Verified by repeat analysis TSH 2.550 {uIU/mL} Comments: PATIENT WAS FASTINGPERFORMED BY: Niupai Nkyowm5739 [facility] [id number] :54 (Normal) Range: 0.450-4.500 Vitamin B12 271 pg/mL (Normal) Comments: PATIENT WAS FASTINGPERFORMED BY: Niupai Ewnlrj5384 [facility] [id number] :54 Range: 211-946 :08 CBC WITH MANUAL DIFF Comments: PATIENT NOT FASTINGPERFORMED BY: Niupai Ssjkhm9702 Doyle LooseHead SoftwareUNC Health Southeastern [id number] Information: [id number] (13736) Immature Grans (Abs) 0.0 {x10E3/uL} (Normal) Range: [...] 3.77-5.28 WBC 4.0 {x10E3/uL} (Normal) Range: 4.0-10.5 3-Bqa-409023:01 FECAL OCCULT- Tubes sent home (72981) FECAL OCCULT HGB ASSAY, QUAL, 1-3 SIMULTANEOU [...] Valenzuela M.D.April 30, 2012 at 8:16:04 AM [id number] Signed GP/GP If you are the referring physician and would like to consult with theradiologist who prov ided this interpretation, please contact Mame Mccoy at [phone]. If this radiologist is unavailable, youwill be directed to another radiologist to assist. If you are a patient with a qu estion regarding this report, pleasecontactyour referring physician directly. Professional Interpretation Provided By: OptiWi-[employer], Phone , These documents contain legally protected [...] by: Nicolas ARAGON,Florian :44 HgA1C , Office (90359) HgA1C , Office 6.3 % (Normal) Range: 4.6 - 7.1 :44 Blood Glucose , Office (42171) Blood Glucose , Office 150 (Normal) Comments: has part of a cinnamon bun for breakfast :52 Microscopic Examination Comments: PATIENT WAS FASTINGPERFORMED BY: LabCoronado BiosciencesSt. Lawrence Rehabilitation CenterVteryy6542 [facility] [id number] Bacteria None seen (Normal) Mucus Threads Present (Normal) Epithelial Cells (non renal) 0-10 {/hpf} (Normal) Range: 0 - 10 RBC 0-3 {/hpf} (Normal) Range: 0 - 3 WBC 0-5 {/hpf} (Normal) Range: 0 - 5 :52 CBC WITH MANUAL DIFF Comments: PATIENT WAS FASTINGPERFORMED BY: LabResolute Networks6370 [facility] CenterSmailexUNC Health Southeastern [id number] Information: [id number] (83339) Immature Grans (Abs) 0.0 {x10E3/uL} (Normal) Range: [...] (Normal) Range: 4.0-10.5 :52 URINALYSIS, W/ MICRO (46819) Comments: PATIENT WAS FASTINGPERFORMED BY: Skelta Software Abaxia [facility] [id number] Microscopic Examination See below: (Normal) Nitrite, Urine Negative (Normal) Urobilinogen,Semi-Qn 1.0 mg/dL (Normal) Range: 0.0-1.9 Bilirubin Negative (Normal) Occult Blood Negative (Normal) Ketones Negative (Normal) Glucose Negative (Normal) Protein 2+ (Abnormal) WBC Esterase Negative (Normal) Appearance Clear (Normal) Urine-Color Yellow (Normal) pH 7.0 (Normal) Range: 5.0-7.5 Specific Ronceverte 1.029 (Normal) Range: 1.005-1.030 :52 TSH (97812) Comments: PATIENT WAS FASTINGPERFORMED BY: Skelta SoftwareSt. Lawrence Rehabilitation CenterFdplsn0921 [facility] [id number] TSH 2.060 {uIU/mL} (Normal) Range: 0.450-4.500 :52 METABOLIC PANEL, COMPREHENSIVE Comments: PATIENT WAS FASTINGPERFORMED BY: Skelta SoftwareSt. Lawrence Rehabilitation CenterJvasts5004 [facility] [id number] (30535) ALT (SGPT) 16 [iU]/L (Normal) Range: 0-40 [...] mg/dL (Abnormal) Range: 65-99 :52 LIPID PANEL (22114) Comments: PATIENT WAS FASTINGPERFORMED BY: AviacodeUNC Health Southeastern [id number] LDL/HDL Ratio 2.2 {ratio_units} (Normal) Range: 0.0-3.2 [...] CREATININE RATIO Comments: PATIENT WAS FASTINGPERFORMED BY: Cellartis70 BotanoCapUNC Health Southeastern [id number] (79219) AND (69748) Microalb/Creat Ratio 822.1 {mg/g_creat} (Abnormal) Range: 0.0-30.0 Microalbumin, Urine 844.3 ug/mL (Abnormal) Range: 0.0-17.0 Creatinine, Urine 102.7 mg/dL (Normal) Range: 15.0-278.0 79-Efi-382140:18 HgA1C , Office (05342) HgA1C , Office 6.3 % (Normal) Range: 4.6 - 7.1 90-Izt-276187:16 CHEST WITH CONTRAST Radiology Report See Note [...] radiologist regarding this report, please call our [id number] line @ Dictated on 12/14/11 1033 by Nicolas ARAGON,[facility] bed on 12/14/11 1438 by ITS IMPORTSign by Florian Valenzuela MD on 12/14/11 1439 Sign by: Florian Valenzuela MD 05-Dec-20119:19 CBC WITH MANUAL DIFF Comments: PATIENT WAS FASTINGPERFORMED BY: LabCoSt. Lawrence Rehabilitation CenterRfqgyr8246 [facility] [id number] Information: [id number] (82410) Immature Grans (Abs) 0.0 {x10E3/uL} (Normal) Range: [...] PANEL, COMPREHENSIVE Comments: PATIENT WAS FASTINGPERFORMED BY: ExactTarget6370 [facility] [id number] (76452) ALT (SGPT) 14 [iU]/L (Normal) Range: 0-40 [...] mg/dL (Abnormal) Range: 65-99 :19 LIPID PANEL (55900) Comments: PATIENT WAS FASTINGPERFORMED BY: Smarty Ring70 [facility] [id number]; appt 12-21-11 LDL/HDL Ratio 3.0 {ratio_units} Range: [...] {units} (Normal) Comments: PATIENT NOT FASTINGPERFORMED BY: Sporlin6370 [facility] [id number] BY: Niupai[address] [id number] 10:24 Range: 0-19 Comments: Negative <20 Weak positive 20 - 39 Moderate positive 40 - 59 Strong positive >59 2-Uel-827016:24 EBV Panel (00869) Comments: PATIENT NOT FASTINGPERFORMED BY: Sporlin6370 [facility] [id number] BY: Gamerius [address] [id number] Interpretation: SPRCS (Normal) Comments: EBV Interpretation Chart [...] <0.9 Equivocal 0.9 - 1.0 Positive >1.0 6-Otw-494371:24 SED RATE ERYTHROCYTE Comments: PATIENT NOT FASTINGPERFORMED BY: [place] 1977070 [facility] [id number] BY: [address] [id number] (88920) Sedimentation Rate-Westergren 6 mm/h (Normal) Range: 0-40 8-Zzn-762760:24 C-REACTIVE PROTEIN (14291) Comments: PATIENT NOT FASTINGPERFORMED BY: [place] 1977070 [facility] [id number] BY: [address] [id number] C-Reactive Protein, Quant 2.1 mg/L (Normal) Range: 0.0-4.9 3-Hie-126176:24 TSH (99278) Comments: PATIENT NOT FASTINGPERFORMED BY: [address] [id number] BY: [address] [id number] TSH 1.610 {uIU/mL} (Normal) Range: 0.450-4.500 8-Wfs-108166:24 RHEUMATOID FACTOR-QUANT Comments: PATIENT NOT FASTINGPERFORMED BY: [place] 1977070 [facility] [id number] BY: [address] [id number] (90710) RA Latex Turbid. 8.4 {IU/mL} (Normal) Range: 0.0-13.9 5-Jgc-379226:24 [place] (ANTINUCLEAR ANTIBODY) Comments: PATIENT NOT FASTINGPERFORMED BY: [place] 1977070 [facility] [id number] BY: LabCoAnthony Ville 368627 [facility] [id number] (37944) [place] Direct Negative (Normal) 7-Hgf-542532:24 CBC WITH MANUAL DIFF Comments: PATIENT NOT FASTINGPERFORMED BY: [facility] Savglj6468 [facility] [id number] BY: LabCo[address] [id number] Inf ormation: [id number] (64895) Immature Grans (Abs) 0.0 {x10E3/uL} (Normal) Range: [...] 3.80-5.10 WBC 4.6 {x10E3/uL} (Normal) Range: 4.0-10.5 8-Oqf-740225:24 METABOLIC PANEL, Comments: PATIENT NOT FASTINGPERFORMED BY: CB [facility] Rpqemj2311 Vivek NunnUnc [facility] [place] [id number] BY: BN [facility] Wwaysvwobf8847 [facility] [id number]; appt 12-21-11 COMPREHENSIVE (38077) ALT (SGPT) 13 [iU]/L (Normal) Range: 0-40 [...] Glucose, Serum 118 mg/dL (Abnormal) Range: 65-99 9-Dfb-926579:51 HANSA CULTURE-OTHER (04959) Comments: PATIENT NOT FASTINGPERFORMED BY: CLARITA LabCoSt. Lawrence Rehabilitation CenterDxllee8328 Vivek [facility] [id number] Information: SRC:AIDAN [id number] Result 1 RRF (Normal) Comments: Routine respiratory vicente Upper Respiratory Culture Final report (Normal) 07-Nov-20119:19 Rapid Strep Test, Office (40520) Rapid Strep Test, Office Negative (Normal) 85-Zev-423898:16 HgA1C , Office (36134) HgA1C , Office 6.1 % (Normal) Range: 4.6 - 7.1 28-Jru-008392:16 Blood Glucose , Office (88730) Blood Glucose , Office 141 (Normal) 43-Duf-490964:10 ABDOMEN/PELVIS WITH CONTRAST Radiology Report See Note [...] 1410 Si gn by: Florian Valenzuela MD 54-Sar-414492:39 CHEST WITH CONTRAST Radiology Report See Note [...] noted, distal end at the level of P9cajkt. Normal osseous structures. There is limited visualization of the liver, spleen w ithout ademonstratedabnormality. IMPRESSION:No pulmonary embolism. No aortic dissection. Nonspecific two to 3-mmsubtle nodular density at right upper lobe, image 145 probably representatypically atelec tatic change. Dictated on 04/21/11 1104 by Leonard Odell MDranscribed on 04/22/11 1013 by ITS IMPORTSign by Jordan Odell MD on 04/22/11 1014 Sign by: Jordan Odell MD 02-Cmq-410503:29 MICROALBUMIN: CREATININE RATIO Comments: PATIENT WAS FASTINGPERFORMED BY: [facility]6370 [facility] [id number] (97148) AND (82498) Microalb/Creat Ratio 11.8 {mg/g_creat} (Normal) Range: 0.0-30.0 Microalbumin, Urine 7.3 ug/mL (Normal) Range: 0.0-17.0 Creatinine, Urine 61.9 mg/dL (Normal) Range: 15.0-278.0 :29 LIPID PANEL (27951) Comments: PATIENT WAS FASTINGPERFORMED BY: [employer]6370 [facility] [id number]; appt 07/25/11 VLDL Cholesterol Peg VLDLCH mg/dL [...] MANUAL DIFF Comments: PATIENT WAS FASTINGPERFORMED BY: [employer]6370 [facility] [id number] Information: [id number] (75525) Immature Grans (Abs) 0.0 {x10E3/uL} (Normal) Range: [...] 3.80-5.10 WBC 5.7 {x10E3/uL} (Normal) Range: 4.0-10.5 58-Mks-035246:29 METABOLIC PANEL, COMPREHENSIVE Comments: PATIENT WAS FASTINGPERFORMED BY: LabCoSt. Lawrence Rehabilitation CenterVddjmb0225 [facility] [id number] (77634) ALT (SGPT) 12 [iU]/L (Normal) Range: 0-40 [...] Glucose, Serum 120 mg/dL (Abnormal) Range: 65-99 32-Gtp-66512:46 THYROID Radiology Report See Note (Normal) Comments: [...] on 03/28/11 1149 Sign by: Jose R ARAGON,[facility] :10 CHEST, PA AND LATERAL Radiology [...] 1019 Sign by: ___ Florian Valenzuela MD 23-Etk-42303:47 SOFT TISSUE NECK WITH CONTRAST Radiology Report [...] malformation. Normal bilateral parotid glands. 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 Normal bilateral carotid [...] 01/24/11 1017 Sign by: Florian Valenzuela MD 93-Qas-47579:15 CBC WITH MANUAL DIFF Comments: PATIENT WAS FASTINGPERFORMED BY: LabKalkaska [facility] Center6370 [facility] [id number] Information: [id number] (93012) Immature Grans (Abs) 0.0 {x10E3/uL} (Normal) Range: [...] 3.80-5.10 WBC 7.0 {x10E3/uL} (Normal) Range: 4.0-10.5 07-Muu-88884:15 METABOLIC PANEL, COMPREHENSIVE Comments: PATIENT WAS FASTINGPERFORMED BY: LabCoSt. [facility] Rehabilitation CenterBeqmwn0388 [facility] [id number] (35003) ALT (SGPT) 10 [iU]/L (Normal) Range: 0-40 [...] mg/dL (Abnormal) Range: 65-99 :15 LIPID PANEL (17583) Comments: PATIENT WAS FASTINGPERFORMED BY: [employer]6370 [facility] [id number]; has f/u 04/20/11 LDL/HDL Ratio 2.5 {ratio_units} (Normal) Range: 0.0-3.2 LDL Cholesterol Calc 94 mg/dL (Normal) Range: 0-99 VLDL Cholesterol Peg 46 mg/dL (Abnormal) Range: 5-40 HDL Cholesterol 37 mg/dL (Abnormal) Comments: According to ATP-III Guidelines, HDL-C >59 mg/dL is considered anegative risk factor for CHD. Triglycerides 230 mg/dL (Abnormal) Range: 0-149 Cholesterol, Total 177 mg/dL (Normal) Range: 100-199 :15 HgA1C , Office (28857) Comments: PATIENT WAS FASTINGPERFORMED BY: LabZumigo Rlqlox8968 [facility] [id number] Glycohemoglobin (GHb), Total 7.7 % (Normal) Comments: Diabetic Adult <9.0 Healthy Adult 3.9 - 7.3 (DCCT/NGSP) Current ADA guide lines recommend a treatment goal of <7.0% HgbA1c for diabetic patients, which corresponds to a <9.0% Glycohemoglobin result with this method. :50 Blood Glucose , Office (89837) Blood Glucose , Office 160 (Normal) :48 [...] = 500 mg/dL :33 HgA1C , Office (25305) HgA1C , Office 6.5 % (Normal) Range: 4.6 - 7.1 :33 Blood Glucose , Office (79747) Blood Glucose , Office 154 (Normal) 17-Zxa-076613:11 Influenza A, H1N1, RT PCR Comments: PERFORMED BY: [employer] [id number] BY: [employer] [id number] Information: SRC:NL Subtype Novel H1N1 by Negative (Normal) PCR Type Influenza A by Negative (Normal) PCR Viral FLUABN (Normal) Comments: PERFORMED BY: [address] [id number] BY: [address] [id number] Culture,Rapid,Influenz Comments: Negative:No Influenza A or B detected. a :04 Urinalysis, Office (55973) UA - BILIRUBIN Negative (Normal) UA - BLOOD Negative (Normal) UA - GLUCOSE Negative (Normal) UA - KETONES Negative mg/dL (Normal) UA - LEUKOCYTE ESTERASE Negative (Normal) UA - NITRITE Negative (Normal) UA - PH 6.0 (Normal) UA - PROTEIN Negative mg/dL (Normal) UA - SPECIFIC GRAVITY 1.025 (Normal) URINE UROBILINGN JEWELS TIMED Normal mg/dL (Normal) :59 Vitamin D Hydroxy (04950) Comments: PATIENT WAS FASTINGPERFORMED BY: [address] [id number] Vitamin D, 25-Hydroxy 32.0 ng/mL (Normal) Range: 32.0-100.0 Comments: Recent studies consider the lower limit of 32.0 ng/mL to be athreshold for optimal health.Jose MAYA. J Nutr. 2004;135(2):317-22. 4:59 METABOLIC PANEL, Comments: PATIENT WAS FASTINGPERFORMED BY: LabCoSt. Lawrence Rehabilitation CenterIfnuau3665 [facility] [id number] Information: [id number] COMPREHENSIVE (15843) ALT (SGPT) 9 [iU]/L (Normal) Range: 0-40 [...] mg/dL (Abnormal) Range: 65-99 :59 LIPID PANEL (44405) Comments: PATIENT WAS FASTINGPERFORMED BY: [employer]6370 [facility] [id number] LDL Cholesterol Calc 87 mg/dL (Normal) Range: [...] MANUAL DIFF Comments: PATIENT WAS FASTINGPERFORMED BY: LabResolute Networks6370 [facility] [id number] Information: ADD [id number] AND DRAW FEE [id number] (55980) Immature Grans (Abs) 0.0 {x10E3/uL} (Normal) Range: [...] CREATININE RATIO Comments: PATIENT WAS FASTINGPERFORMED BY: Skelta SoftwareSt. Lawrence Rehabilitation CenterZjuwrg7228 [facility] [id number] (32724) AND (68749) Creatinine, Urine 87.5 mg/dL (Normal) Range: 15.0-278.0 Microalb/Creat Ratio 4.5 {mg/g_creat} (Normal) Range: 0.0-30.0 Microalbumin, Urine 3.9 ug/mL (Normal) Range: 0.0-17.0 :57 METABOLIC PANEL, COMPREHENSIVE Comments: PATIENT WAS FASTINGPERFORMED BY: NiupaiSt. Lawrence Rehabilitation CenterCnwiib0049 [facility] [id number] (56778) ALT (SGPT) 12 [iU]/L (Normal) Range: 0-40 [...] mg/dL (Abnormal) Range: 65-99 :57 LIPID PANEL (22818) Comments: PATIENT WAS FASTINGPERFORMED BY: [employer] Cfnrxc5274 [facility] [id number] LDL Cholesterol Calc 138 mg/dL (Abnormal) Range: 0-99 LDL/HDL Ratio 2.9 {ratio_units} (Normal) Range: 0.0-3.2 HDL Cholesterol 47 mg/dL (Normal) Comments: According to ATP-III Guidelines, HDL-C >59 mg/dL is considered anegative risk factor for CHD. VLDL Cholesterol Peg 29 mg/dL (Normal) Range: 5-40 Cholesterol, Total 214 mg/dL (Abnormal) Range: 100-199 Triglycerides 147 mg/dL (Normal) Range: 0-149 :05 HgA1C , Office (09671) HgA1C , Office 6.5 % (Normal) Range: 4.6 - 7.1 :05 Blood Glucose , Office (10698) Blood Glucose , Office 140 (Normal) :35 MICROALBUMIN: CREATININE RATIO Comments: PATIENT WAS FASTINGPERFORMED BY: LabCoSt. Lawrence Rehabilitation CenterQaxouq1944 [facility] [id number] (51261) AND (55574) Creatinine, Urine 94.9 mg/dL (Normal) Range: 15.0-278.0 Microalb/Creat Ratio 10.7 {mg/g_creat} (Normal) Range: 0.0-30.0 Microalbumin, Urine 10.2 ug/mL (Normal) Range: 0.0-17.0 :35 CBC WITH MANUAL DIFF Comments: PATIENT WAS FASTINGPERFORMED BY: [employer] BBQCoSt. Lawrence Rehabilitation CenterTirdsn5907 [facility] [id number] Information: [id number] (43823) Baso (Absolute) 0.0 {x10E3/uL} (Normal) Range: 0.0-0.2 [...] COMPREHENSIVE Comments: PATIENT WAS FASTINGPERFORMED BY: LabCoSt. Lawrence Rehabilitation CenterDylbrq4513 [facility] [id number] (81822) ALT (SGPT) 12 [iU]/L (Normal) Range: 0-40 [...] mg/dL (Abnormal) Range: 65-99 :35 LIPID PANEL (65264) Comments: PATIENT WAS FASTINGPERFORMED BY: [facility] Ntpxgl1326 [place] [id number] LDL Cholesterol Calc 103 mg/dL (Abnormal) Range: 0-99 LDL/HDL Ratio 3.0 {ratio_units} (Normal) Range: 0.0-3.2 HDL Cholesterol 34 mg/dL (Abnormal) Comments: According to ATP-III Guidelines, HDL-C >59 mg/dL is considered anegative risk factor for CHD. VLDL Cholesterol Peg 38 mg/dL (Normal) Range: 5-40 Cholesterol, Total 175 mg/dL (Normal) Range: 100-199 Triglycerides 190 mg/dL (Abnormal) Range: 0-149 :31 HgA1C , Office (17921) HgA1C , Office 6.2 % (Normal) Range: 4.6 - 7.1 :31 Blood Glucose , Office (21104) Blood Glucose , Office 113 (Normal) :03 BILAT SCRN DIGITAL & CAD Radiology Report See Note (Normal) Comments: Exam Number: [id number] MAMMOGRAPHY - BILATERAL SCREENING INDICATION:Routine annual screening [...] of attaching a ResultCode to this exam.ADDENDUM: [id number] HPBI/MDS Reported By: BRIAN JIMENEZ M.D. :02 DEXA BONE DENSITY STUDY () Radiology Report See Note (Normal) Comments: Exam Number: [id number] CLINICAL:Assess bone density EXAMINATION:DUAL ENERGY X-RAY ABSORPTIOMETRY / DEXA. TECHNIQUE:Bone Density Measurements (BMD) of left hip and left forearm wereobtained using a [employer] dual energy scanner. COMPARISON:A report from 2001 [...] NIH Osteoporosis and Related Bone Diseases http://www.osteo.org2. Net Web Developer ational Society for Clinical Densitometryhttp://www.iscd.org3. National Osteoporosis Foundation http://www.nof.org Reported By: NELLY LINCOLN M.D. :11 HgA1C , Office (97415) HgA1C , Office 6.2 % (Normal) Range: 4.6 - 7.1 :11 Blood Glucose , Office (48013) Blood Glucose , Office 186 (Normal) :25 TSH (41094) Comments: PATIENT WAS FASTINGPERFORMED BY: LabCo Xlptvu3126 [facility] [id number] TSH 2.340 {uIU/mL} (Normal) Range: 0.450-4.500 :25 METABOLIC PANEL, COMPREHENSIVE Comments: PATIENT WAS FASTINGPERFORMED BY: LabCo Wiuuaq6424 [facility] [id number] (90041) ALT (SGPT) 10 [iU]/L (Normal) Range: 0-40 [...] MANUAL DIFF Comments: PATIENT WAS FASTINGPERFORMED BY: LabKalkaska Memorial Health Center6370 [facility] [id number] Information: ADD DRAW FEE [id number] AND J0 3203 (18189) Baso (Absolute) 0.0 {x10E3/uL} (Normal) Range: 0.0-0.2 [...] {x10E3/uL} (Normal) Range: 4.0-10.5 :25 LIPID PANEL (98149) Comments: PATIENT WAS FASTINGPERFORMED BY: [facility]6370 [facility] [id number] LDL/HDL Ratio 2.6 {ratio_units} (Normal) Range: 0.0-3.2 Cholesterol, Total 183 mg/dL (Normal) Range: 100-199 HDL Cholesterol 34 mg/dL (Abnormal) Comments: According to ATP-III Guidelines, HDL-C >59 mg/dL is considered anegative risk factor for CHD. LDL Cholesterol Calc 90 mg/dL (Normal) Range: 0-99 Triglycerides 295 mg/dL (Abnormal) Range: 0-149 VLDL Cholesterol Peg 59 mg/dL (Abnormal) Range: 5-40 :02 HgA1C , Office (25440) HgA1C , Office 6.2 % (Normal) Range: 4.6 - 7.1 :02 Blood Glucose , Office (57689) Blood Glucose , Office 152 (Normal) :02 HEPATIC FUNCTION PANEL Comments: PATIENT WAS FASTINGPERFORMED BY: NiupaiSt. Lawrence Rehabilitation CenterIbkkbh8850 [facility] [id number] (17881) Alkaline Phosphatase, S 63 [iU]/L (Normal) Range: 25-165 ALT (SGPT) 13 [iU]/L (Normal) Range: 0-40 AST (SGOT) 14 [iU]/L (Normal) Range: 0-40 Bilirubin, Direct 0.10 mg/dL (Normal) Range: 0.00-0.40 Bilirubin, Total 0.4 mg/dL (Normal) Range: 0.1-1.2 Albumin, Serum 4.6 g/dL (Normal) Range: 3.6-4.8 Protein, Total, Serum 7.0 g/dL (Normal) Range: 6.0-8.5 :02 LIPID PANEL (03595) Comments: PATIENT WAS FASTINGPERFORMED BY: [facility]6370 [facility] [id number] LDL Cholesterol Calc 114 mg/dL (Abnormal) Range: 0-99 LDL/HDL Ratio 3.6 {ratio_units} (Abnormal) Range: 0.0-3.2 HDL Cholesterol 32 mg/dL (Abnormal) Comments: According to ATP-III Guidelines, HDL-C >59 mg/dL is considered anegative risk factor for CHD. Triglycerides 319 mg/dL (Abnormal) Range: 0-149 VLDL Cholesterol Peg 64 mg/dL (Abnormal) Range: 5-40 Cholesterol, Total 210 mg/dL (Abnormal) Range: 100-199 :45 HgA1C , Office (44608) HgA1C , Office 6.2 % (Normal) Range: 4.6 - 7.1 :45 Blood Glucose , Office (83892) Blood Glucose , Office 193 (Normal) :34 MICROALBUMIN: CREATININE RATIO Comments: PATIENT WAS FASTINGPERFORMED BY: CLARITA [employer]6370 [facility] [id number] (92320) AND (99182) Creatinine, Urine 126.3 mg/dL (Normal) Range: 15.0-278.0 Microalb/Creat Ratio 7.6 {mg/g_creat} (Normal) Range: 0.0-30.0 Microalbumin, Urine 9.6 ug/mL (Normal) Range: 0.0-17.0 :34 METABOLIC PANEL, COMPREHENSIVE Comments: PATIENT WAS FASTINGClinical Information: ADD [id number] CC:3302PERFORMED BY: [employer]6370 [facility] [id number] (83836) A/G Ratio 1.7 (Normal) Range: 1.1-2.5 Albumin, [...] FUNCTION PANEL Comments: PATIENT WAS FASTINGPERFORMED BY: [facility] LabResolute Networks6370 [facility] [id number] (97196) Bilirubin, Direct 0.08 mg/dL (Normal) Range: 0.00-0.40 :34 LIPID PANEL (37478) Comments: PATIENT WAS FASTINGPERFORMED BY: [facility] LabCoronado BiosciencesSt. Lawrence Rehabilitation CenterUcrykt8114 [facility] [id number] Cholesterol, Total 186 mg/dL (Normal) Range: 100-199 HDL Cholesterol 38 mg/dL (Abnormal) Comments: According to ATP-III Guidelines, HDL-C >59 mg/dL is considered anegative risk factor for CHD. LDL Cholesterol Calc 102 mg/dL (Abnormal) Range: 0-99 LDL/HDL Ratio 2.7 {ratio_units} (Normal) Range: 0.0-3.2 Triglycerides 232 mg/dL (Abnormal) Range: 0-149 VLDL Cholesterol Peg 46 mg/dL (Abnormal) Range: 5-40 39-Vbd-315623:36 HgA1C , Office (15217) HgA1C , Office 6.3 % (Normal) Range: 4.6 - 7.1 38-Mdi-730809:36 Blood Glucose , Office (96416) Blood Glucose , Office 129 (Normal) 3-Bya-893455:12 BILAT SCRN DIGITAL & CAD Radiology Report See Note (Normal) Comments: Exam Number: [id number] MAMMOGRAM, BILATERAL SCREENING DIGITAL AND CAD HISTORY: [...] 1992 (MQSA). The mammograms werealso examined w [facility] computer-aided detection software ([employer], [employer], [employer].). Reported By: BRIAN JIMENEZ M.D. 49-Pbk-121310:57 HgA1C , Office (48790) HgA1C , Office 6.3 % (Normal) Range: 4.6 - 7.1 13-Kor-904906:57 Blood Glucose , Office (15563) Blood Glucose , Office 111 (Normal) :40 [...] for patient's is the eGFRmultiplied by 1.212. [facility] Laboratory uses the abbreviated Modification of [...] Disease W/O Kidney Disease>/= 90 Stage One Ofrzdt10 - 89 Stage Two Suspect Decreased GFR30 [...] (Normal) Range: 5-40 :30 HgA1C , Office (11517) HgA1C , Office 6.2 % (Normal) Range: 4.6 - 7.1 :30 Blood Glucose , Office (76735) Blood Glucose , Office 167 (Normal) :33 [...] (Normal) Range: 211-911 :51 HgA1C , Office (85142) HgA1C , Office 5.9 % (Normal) Range: 4.6 - 7.1 84-Bzc-613129:51 Blood Glucose , Office (38952) Blood Glucose , Office 113 (Normal) :49 [...] >240 mg/dL High Risk :01 Urinalysis, Office (26466) UA - BILIRUBIN Negative (Normal) UA - [...] Comments: GLU,2HPPG 75gm GLUC PPG GLUP from 0603:I72463J. 76-Nrr-596024:44 CHEST, PA AND LATERAL Radiology Report See Note (Normal) Comments: Exam Number: [id number] PA AND LATERAL CHEST HISTORY Being done for chest pain. FINDINGSCardiac configuration is upper limits of normal to mildly enlarged.There is mild elevation, left hemid iaphragm. No acute infiltrate,effusion, or pneumothorax is identified. There is moderate spurformation noted in the lower dorsal spine. IMPRESSION1. A number of chronic changes.2. No acute infiltrate. Reported By: CADE MERCER M.D. 68-Ygn-947385:20 URINE HANSA CULTURE-IDENTIFICATN Comments: PATIENT NOT FASTINGClinical Information: ADD [id number] PERFORMED BY: LabCoSt. Lawrence Rehabilitation CenterNwqqeg0027 [facility] [id number] (03306) Antimicrobial MARY (Normal) Comments: S = Susceptible; [...] mL (Normal) Urine Final report Culture,Comprehensive (Normal) 28-Nvs-64104:00 CBC With Differential/Platelet Comments: PATIENT NOT FASTINGPERFORMED BY: [facility] Ajgrpt8782 [facility] [id number] Baso (Absolute) 0.1 {x10E3/uL} (Normal) Range: 0.0-0.2 [...] 11.7-15.0 WBC 6.0 {x10E3/uL} (Normal) Range: 4.0-10.5 36-Wrx-36611:00 Comp. Metabolic Panel (14) Comments: PATIENT NOT FASTINGPERFORMED BY: [facility] Urbdoj4648 [facility] [id number] A/G Ratio 1.7 (Normal) Range: 1.1-2.5 Albumin, [...] Serum 116 mg/dL (Abnormal) Range: 65-99 If -Kazakh >60 mL/min (Normal) Range: 60-128 Comments: Note: [...] (Normal) Range: 0.34-4.82 :33 HgA1C , Office (11290) HgA1C , Office 5.2 % (Normal) Range: 4.6 - 7.1 :33 Blood Glucose , Office (31975) Blood Glucose , Office 172 (Normal) :08 FEMUR,2 VIEWS Radiology Report See Note (Normal) Comments: Exam Number: [id number] AP AND LATERAL LEFT TIBIA/FIBULA. HISTORYBeing done [...] Report See Note (Normal) Comments: Exam Number: [id number] AP AND LATERAL LEFT TIBIA/FIBULA. HISTORYBeing done [...] (Normal) Range: 0.34-4.82 :53 HgA1C , Office (01001) Comments: done-[facility] HgA1C , Office 5.3 % (Normal) Range: 4.6 - 7.1 :53 Blood Glucose , Office (11134) Comments: done-[facility] Blood Glucose , Office 94 (Normal) :55 [...] Range: 6.4-8.2 :18 Blood Glucose , Office (67892) Blood Glucose , Office 5.6 (Normal) :18 HgA1C , Office (04739) HgA1C , Office 142 % (Abnormal) Range: [...] Range: 6.4-8.2 :05 COMPLETE UA Comments: COMMENTS: [facility] [address] DR [place]*: NOT APPLICABLE BACTERIA [...] :00 AMIE 25 U/L (Normal) Comments: COMMENTS: [facility] DR Webster*: NOT APPLICABLE Range: 25-115 :00 CBCD Comments: COMMENTS: [facility] DR Webster*: NOT APPLICABLE BASO% 0.1 % [...] 11.6-14.6 WBC 5.3 K/mm3 (Normal) Range: 4.4-11.0 97-Aet-979807:00 COMP METABOLIC Comments: COMMENTS: BED 7 DR [...] T PROT 8.0 g/dL (Normal) Range: 6.4-8.2 50-Qjk-385224:00 D BILI 0.14 mg/dL (Normal) Comments: COMMENTS: [...] mg/dL VLDL 50 mg/dL (Abnormal) Range: 5-40 0-Wpd-194935:02 URINALYSIS (69915) URINALYSIS Comments: uNABLE TO PUT RESULTS IN CORRECTLY- CKDOVAV-XCGIDFRNNOFR-UDPUHPOQCXS-NEGS.G.-1.406FEDRZ-WWMAFGKHMJ-0.6KHWCKJB-NNETOSNIMSJ-4.2ICOTRZED-ADNFSIWWMYUQNSPVVM-JGXZI (Normal) :09 HgA1C , Office (46228) HgA1C , Office 5.4 % (Normal) Range: 4.6 - 7.1 :09 Blood Glucose , Office (37085) Blood Glucose , Office 161 (Normal) Plan [...] II, controlled, with no complications CAD in [place] artery : Reviewed Instant Pot[employer] Letter Indication: CAD in [place] artery Mixed hyperlipidemia : Cholesterol mgmt Indication: [...] B12 shots montly Indication: Macrocytosis CAD in [place] artery : Reviewed [employer] Letter Indication: CAD in [place] artery CAD in [place] artery : Continue Current Prescription(s) Indication: CAD in [place] artery Diabetes mellitus type 2, uncontrolled, without [...] Pulmonary hypertension, moderate to severe : Reviewed [employer] Letter Indication: Pulmonary hypertension, moderate to severe [...] S/P laminectomy with spinal fusion : Reviewed [employer] Letter Indication: S/P laminectomy with spinal fusion Macrocytosis without anemia : Reviewed Lab Indication: Macrocytosis without anemia Diabetes mellitus type II, controlled, with no complications : Reviewed Diagnostic Tests Indication: Diabetes mellitus type II, controlled, with no complications S/P laminectomy with spinal fusion : Reviewed [employer] Letter Indication: S/P laminectomy with spinal fusion [...] pneumonia) CAP (community acquired pneumonia) : Reviewed [employer] Letter Indication: CAP (community acquired pneumonia) Sinusitis, bacterial : Eprescribed prescriptions (G8553) Indication: Sinusitis, bacterial Pulmonary hypertension, moderate to severe : Reviewed Diagnostic Tests Indication: Pulmonary hypertension, moderate to severe Nonsmoker : Eprescribed prescriptions (G8553) Indication: Nonsmoker Bronchitis : Reviewed Diagnostic Tests Indication: Bronchitis Bronchitis : Reviewed [employer] Letter Indication: Bronchitis Bronchitis : *Antibiotic Usage [...] : FOLLOW UP IN 3 DAYS with [facility] Indication: EDEMA, NOS Benign paroxysmal positional vertigo : Reviewed [employer] Letter Indication: Benign paroxysmal positional vertigo Acute [...] MONTHS Indication: Mixed hyperlipidemia Planned Observations TSH (96746)Indication: Diabetes mellitus type 2, uncontrolled, without complications On: 42 Request URINALYSIS, W/ MICRO (77264)Indication: Diabetes mellitus type 2, uncontrolled, without complications On: :42 Request MICROALBUMIN: CREATININE RATIO (61377) AND (22033)Indication: Diabetes mellitus type 2, uncontrolled, without complications On: :42 Request METABOLIC PANEL, COMPREHENSIVE (60020)Indication: Hypertensive heart disease without heart failure On: 0-Ier-926520:42 Request LIPID PANEL (59127)Indication: Mixed hyperlipidemia On: :42 Request CBC W/AUTO DIFF WBC (28913)Indication: Hypertensive heart disease without heart failure On: 5-Paj-010001:42 Request LIPID PANEL (40607)Indication: Diabetes mellitus type 2, uncontrolled, without complications On: 2-Jkl-688253:25 Request CBC WITH MANUAL DIFF (92813)Indication: Elevated platelet count On: :11 Request LIPASE (30203)Indication: Flu-like symptoms On: 9-Qpl-823927:53 Request Comments: stat POTASSIUM SERUM (09527)Indication: Hypokalemia On: :40 Request MAGNESIUM (47140)Indication: Hypomagnesemia On: 03-Ffj-385222:40 Request Renal function Panel (35055)Indication: Hypokalemia On: 15-Qnx-892967:48 Request POTASSIUM SERUM (29164)Indication: Hypokalemia (Renamed from Decreased potassium in the blood) On: 03-Nov-20169:06 Request POTASSIUM SERUM (81607)Indication: Hypokalemia (Renamed from Decreased potassium in the blood) On: 86-Hur-329460:55 Request POTASSIUM SERUM (02227)Indication: Hypokalemia On: 1-Hqr-972469:22 Request MAGNESIUM (34157)Indication: Hypokalemia On: 2-Xsr-388987:21 Request URINE HANSA CULTURE-JEWELS COL COUNT (89033)Indication: UTI (urinary tract infection), bacterial On: :54 Request MAGNESIUM (40574)Indication: Abdominal pain On: 66-Ewa-335764:45 Request Comments: do in 3 weeks CALCIFEDIOL (24582)Indication: Vitamin D deficiency On: 16-Oja-491765:14 Request LIPID PANEL (18716)Indication: Mixed hyperlipidemia On: 39-Zzt-515332:13 Request VITAMIN B12 AND FOLATES (18723)Indication: B12 deficiency anemia On: 16-Fpz-775904:13 Request TSH (THYROID STIMULATING HORMONE) (36668)Indication: Thyroid Nodule On: :13 Request METABOLIC PANEL, COMPREHENSIVE (07821)Indication: Mixed hyperlipidemia On: :13 Request CBC WITH MANUAL DIFF (19578)Indication: Hypertensive heart disease without heart failure On: 82-Bmd-720571:13 Request MICROALBUMIN: CREATININE RATIO (76839) AND (42839)Indication: Hypertensive heart disease without heart failure On: 11-Bmp-521304:13 Request MYOGLOBIN (36606)Indication: Sweating abnormality On: 26-Vjr-513423:11 Request CPK MB FRACTION (19416)Indication: Sweating abnormality On: 75-Kva-729007:11 Request ASSAY, TROPONIN, QUANTITATIVE (aka Troponin I) ([id number])Indication: Sweating abnormality On: 40-Dib-196150:11 Request METABOLIC PANEL, BASIC (08187)Indication: Hypokalemia (Renamed from Decreased potassium in the blood) On: 80-Wgm-073608:16 Request PARATHORMONE ([id number])Indication: Hypocalcemia On: 23-Zsy-413430:23 Request Magnesium (70915)Indication: Hypokalemia (Renamed from Decreased potassium in the blood) On: 95-Iug-875162:22 Request CALCIUM, IONIZED (66867)Indication: Hypocalcemia On: 60-Phk-335412:21 Request VITAMIN B12 AND FOLATES (64712)Indication: Macrocytosis without anemia On: 12-Jtd-534792:39 Request SMEAR+INTERP FLUOR STAIN (84361)Indication: Macrocytosis without anemia On: 07-Dwm-298858:37 Request MICROALBUMIN: CREATININE RATIO (56302) AND ([id number])Indication: Hypertensive heart disease without heart failure On: 29-Rsu-532982:16 Request CBC W/AUTO DIFF WBC (42740)Indication: Hypertensive heart disease without heart failure On: 80-Jws-936807:16 Request METABOLIC PANEL, COMPREHENSIVE (48636)Indication: Hypertensive heart disease without heart failure On: 44-Frp-399650:16 Request LIPID PANEL (39001)Indication: Mixed hyperlipidemia On: 03-Edx-639586:16 Request Vitamin D Hydroxy (38512)Indication: Vitamin D deficiency On: 22-Qmg-241398:15 Request VITAMIN B-12 (CYANOCOBALAMIN) ([id number])Indication: B12 deficiency anemia On: 68-Kjj-654521:15 Request METABOLIC PANEL, COMPREHENSIVE (40927)Indication: Fatigue On: :07 Request LIPID PANEL ([id number])Indication: Mixed hyperlipidemia On: :07 Request VITAMIN B-12 (CYANOCOBALAMIN) ([id number])Indication: B12 deficiency anemia On: :07 Request CBC (AUTO) ([id number])Indication: B12 deficiency anemia On: :07 Request Vitamin D Hydroxy (34559)Indication: Vitamin D deficiency On: :06 Request HgA1C , Office (21148)Indication: Diabetes mellitus type II, controlled, with no complications On: :55 Request CBC, PLATELETS & MANUAL DIFF ([id number])Indication: Hypokalemia (Renamed from Decreased potassium in the blood) On: :08 Request Comments: recheck before 11-07-14 MICROALBUMIN: CREATININE RATIO (75343) AND ([id number])Indication: Proteinuria On: :49 Request VITAMIN B-12 (CYANOCOBALAMIN) (27568)Indication: B12 deficiency anemia On: :56 Request Vitamin D Hydroxy (54985)Indication: Vitamin D deficiency On: :56 Request CBC WITH MANUAL DIFF ([id number])Indication: B12 deficiency anemia On: :55 Request METABOLIC PANEL, COMPREHENSIVE (17501)Indication: Hypertensive heart disease without heart failure On: :55 Request LIPID PANEL (11099)Indication: Mixed hyperlipidemia On: :55 Request LIPID PANEL (86729)Indication: Mixed hyperlipidemia On: :31 Request TSH (08696)Indication: Thyroid Nodule On: :31 Request MICROALBUMIN: CREATININE RATIO (71262) AND ([id number])Indication: Diabetes mellitus type II, controlled, with no complications On: :31 Request METABOLIC PANEL, COMPREHENSIVE (18156)Indication: Diabetes mellitus type II, controlled, with no complications On: :31 Request URINALYSIS, W/ MICRO (76334)Indication: Proteinuria On: :30 Request Vitamin D Hydroxy (46852)Indication: Vitamin D deficiency On: :30 Request CBC, PLATELETS & AUT DIFF (07715)Indication: B12 deficiency anemia On: :29 Request VITAMIN B-12 (CYANOCOBALAMIN) (94121)Indication: B12 deficiency anemia On: :29 Request HgA1C , Office (99559)Indication: Diabetes mellitus type II, controlled, with no complications On: :03 Request TSH ([id number])Indication: Thyroid Nodule On: :39 Request LIPID PANEL (18011)Indication: Mixed hyperlipidemia On: :38 Request CBC WITH MANUAL DIFF ([id number])Indication: Diabetes mellitus type II, controlled, with no complications On: :38 Request METABOLIC PANEL, COMPREHENSIVE (43508)Indication: Diabetes mellitus type II, controlled, with no complications On: :38 Request Vitamin D Hydroxy (87589)Indication: Vitamin D deficiency On: :22 Request CBC, PLATELETS & AUT DIFF ([id number])Indication: B12 deficiency anemia On: 97-Fwv-91636:22 Request VITAMIN B-12 (CYANOCOBALAMIN) ([id number])Indication: B12 deficiency anemia On: :22 Request CBC WITH MANUAL DIFF ([id number])Indication: Diabetes mellitus type II, controlled, with no complications On: :12 Request METABOLIC PANEL, COMPREHENSIVE ([id number])Indication: Diabetes mellitus type II, controlled, with no complications On: 81-Dcw-06864:12 Request HEPATIC FUNCTION PANEL (41135)Indication: Mixed hyperlipidemia On: 59-Zlh-59309:10 Request LIPID PANEL (03212)Indication: Mixed hyperlipidemia On: 49-Jqo-08370:10 Request VITAMIN B-12 (CYANOCOBALAMIN) (43172)Indication: B12 deficiency anemia On: 39-Udr-28408:02 Request TSH ([id number])Indication: Dysthymic disorder On: 31-Kdf-316607:17 Request CREATININE CLEARANCE ([id number])Indication: Proteinuria On: 12-Stx-182337:15 Request 24 hour urine for Protein (31477)Indication: Proteinuria On: 10-Fzb-198447:15 Request VITAMIN B-12 (CYANOCOBALAMIN) (23321)Indication: B12 deficiency anemia On: 98-Gcy-980300:15 Request CCP ANTIBODY ([id number])Indication: Pain in unspecified joint On: 07-Nov-20119:47 Request LIPID PANEL ([id number])Indication: Mixed hyperlipidemia On: 24-Riv-112359:45 Request OVA & PARASITE DIR SMEAR (39937)Indication: Diarrhea On: :52 Request LEUKOCYTE COUNT, FECAL (12862)Indication: Diarrhea On: :52 Request Clostridium difficile Toxin A+B, EIA (62721)Indication: Diarrhea On: :52 Request HANSA CULTURE-STOOL ([id number])Indication: Diarrhea On: :52 Request CBC WITH MANUAL DIFF ([id number])Indication: Hypertensive heart disease without heart failure On: 71-Oyg-650572:11 Request METABOLIC PANEL, COMPREHENSIVE ([id number])Indication: Hypertensive heart disease without heart failure On: 20-Xtq-847209:11 Request LIPID PANEL ([id number])Indication: Mixed hyperlipidemia On: 14-Jjy-845881:11 Request Influenza B Ag ([id number])Indication: Myalgia and myositis On: 21-Lqu-52033:06 Request Influenza A Ag (99039)Indication: Myalgia and myositis On: 43-Gxg-54953:06 Request METABOLIC PANEL, COMPREHENSIVE (05812)Indication: Uncomplicated herpes simplex On: 66-Xnl-104965:13 Request MICROALBUMIN: CREATININE RATIO (69812) AND ([id number])Indication: Abnormal glucose tolerance test On: :32 Request METABOLIC PANEL, COMPREHENSIVE (98457)Indication: Hypertensive heart disease without heart failure On: :32 Request HEPATIC FUNCTION PANEL (62417)Indication: Mixed hyperlipidemia On: :31 Request LIPID PANEL (43138)Indication: Mixed hyperlipidemia On: :31 Request TSH ([id number])Indication: Abnormal glucose tolerance test On: 21-Ipg-618991:19 Request LIPID PANEL ([id number])Indication: Mixed hyperlipidemia On: 05-Ybo-646855:15 Request HEPATIC FUNCTION PANEL (10347)Indication: Mixed hyperlipidemia On: 86-Jfh-698070:15 Request METABOLIC PANEL, COMPREHENSIVE (97501)Indication: Hypertensive heart disease without heart failure On: :56 Request HEPATIC FUNCTION PANEL (59523)Indication: Mixed hyperlipidemia On: :56 Request LIPID PANEL (36762)Indication: Mixed hyperlipidemia On: :56 Request MICROALBUMIN: CREATININE RATIO (57493) AND ([id number])Indication: Abnormal glucose tolerance test On: :30 Request CBC WITH MANUAL DIFF ([id number])Indication: Abnormal glucose tolerance test On: :30 Request VITAMIN B-12 (CYANOCOBALAMIN) (71344)Indication: Tinnitus, unspecified laterality On: :24 Request METABOLIC PANEL, COMPREHENSIVE (04785)Indication: Hypertensive heart disease without heart failure On: :24 Request LIPID PANEL (14419)Indication: Mixed hyperlipidemia On: :24 Request URINALYSIS W/O MICRO ([id number])Indication: Hypertensive heart disease without heart failure On: :12 Request TSH ([id number])Indication: Hypertensive heart disease without heart failure On: 22-Xnk-937387:12 Request CBC WITH MANUAL DIFF ([id number])Indication: Hypertensive heart disease without heart failure On: 48-Ceo-627330:12 Request METABOLIC PANEL, COMPREHENSIVE (44139)Indication: Hypertensive heart disease without heart failure On: :12 Request LIPID PANEL (03577)Indication: Mixed hyperlipidemia On: 81-Kww-654451:12 Request CBC with manual diff ([id number])Indication: Pre-operative examination On: :30 Request Metabolic Panel, Comprehensive (62633)Indication: Pre-operative examination On: 62-Zuo-613838:30 Request Urinalysis, Office (68178)Indication: Pre-operative examination On: 24-Omr-895164:29 Request Lipid Panel (75371)Indication: Mixed hyperlipidemia On: :52 Request Comments: in three months (approximately) TSH (69332)Indication: Hypertensive heart disease without heart failure On: :52 Request MICROALBUMIN URINE QUANT ([id number])Indication: Hypertensive heart disease without heart failure On: :52 Request METABOLIC PANEL, COMPREHENSIVE (33073)Indication: Hypertensive heart disease without heart failure On: :52 Request CBC WITH MANUAL DIFF ([id number])Indication: Hypertensive heart disease without heart failure On: :52 Request HEPATIC FUNCTION PANEL (74615)Indication: Mixed hyperlipidemia On: :52 Request LIPID PANEL (46455)Indication: Mixed hyperlipidemia On: :52 Request HEPATIC FUNCTION PANEL (02903)Indication: Mixed hyperlipidemia On: :54 Request LIPID PANEL (10806)Indication: Mixed hyperlipidemia On: :54 Request TSH ([id number])Indication: pruritis On: :37 Request METABOLIC PANEL, COMPREHENSIVE (15610)Indication: pruritis On: :37 Request CBC WITH MANUAL DIFF ([id number])Indication: pruritis On: :37 Request LIPID PANEL (40485)Indication: Mixed hyperlipidemia On: :18 Request HEPATIC FUNCTION PANEL (84771)Indication: Mixed hyperlipidemia On: :18 Request HEPATIC FUNCTION PANEL ([id number])Indication: Mixed hyperlipidemia On: :14 Request LIPID PANEL (20802)Indication: Mixed hyperlipidemia On: 8-Kre-661073:14 Request Comments: 2mos Planned Encounters Medical; 3 Month FU - On: 24-Aug-2018 7:00 [facility] Margarita Drake DO, DO, Kathleen Planned Procedures ELECTROCARDIOGRAM, COMPLETE (ECG) On: 23-May-2018 Intent (32113)By: Margarita Drake DO Comments: sinus favio no acute chg Margarita GALARZA B 12 Injection, 1000 mcg (J3420)By: On: 23-May-2018 Intent Margarita Drake DO, DO, Comments: b12 1,000mcg/ml 1ml given L deltoid lot#[id number] exp: dino Margarita B 12 Injection, 1000 mcg (J3420)By: On: 26-Mar-2018 Intent Marlyn Roberts LPN Comments: [id number] dltdIMas STACK CLERK B 12 Injection, 1000 mcg (J3420)By: On: 19-Feb-2018 Intent Margarita Drake DO, DO, Comments: vitamin b12 1000mcg injectionlot: [id number]: 06/2019L DELT IMpt tolerated well Margarita B 12 Injection, 1000 mcg (J3420)By: On: 07-Dec-2017 Intent Noelle GALARZA Margarita Drake , Comments: 1 ml given lt arm lot [id number] exp 01/20 Margarita B 12 Injection, 1000 mcg (J3420)By: On: 10-Nov-2017 Intent Margarita Drake DO, DO, Margarita CHEST XRAY, PA & LATERAL ([id number])By: On: 26-Sep-2017 Intent Allyn Manley Aerosol Treatment (90609)By: Khanh On: 13-Sep-2017 Intent Ann Marie MCDANIEL Aerosol Treatment ([id number])By: Vineet, On: 07-Sep-2017 Intent Allyn Comments: Lungs clear after aerosol treatment. B 12 Injection, 1000 mcg (J3420)By: On: 15-Aug-2017 Intent Margarita Drake DO Noelle DO, Comments: vitamin b12 1000mcg injectionlot: [id number]: 10/2018L DELT IMpt tolerated wellAD STACK CLERK Margarita INFUSION, NORMAL SALINE SOLUTION , On: 10-Aug-2017 Intent 1000 CC (Special Coverage Instructions Apply. See MCM: 2048) (J7030)By: Libby Mai DO Toradol Injection, 30 mg (J1885)By: On: 09-Aug-2017 Intent Libby Mai DO Comments: toradol 30mg IV push -per dr. mailot: [id number]: 11/2017IV push in 23g in R ACpt tolerated well. AD STACK CLERK INFUSION, NORMAL SALINE SOLUTION , On: 09-Aug-2017 Intent 1000 CC (Special Coverage Comments: 23g inserted to R AC per first attemptpt tolerated [id number] NS infusing Instructions Apply. See MCM: 2048) (J7030)By: Stefanie Ghosh XR RIB AND CHEST LEFT ([id number])By: Sergei On: 09-Aug-2017 Libby Zavala DO Comments: stat call wet read fall with left anterior inferior rib pain/sob B 12 Injection, 1000 mcg (J3420)By: On: 03-Aug-2017 Intent Visit, Nurse Comments: given - see flowsheet Dose-prefilled syringeRIGHT DLTD, IMgiven by:CIARA JarrellNVIS signed B 12 Injection, 1000 mcg (J3420)By: On: 01-Aug-2017 Intent Margarita Drake DO, DO, Comments: vitamin b12 1000mcg injectionlot: [id number]: 10/2018L DELT IMpt tolerated wellAD STACK CLERK Margarita B 12 Injection, 1000 mcg (J3420)By: On: 26-Jul-2017 Intent Margarita Drake DO, DO, Comments: vitamin b12 1000mcg injectionlot: [id number]: 10/2018L DELT IMpt tolerated wellAD STACK CLERK Margarita INTENSIVE BEHAVIORAL THERAPY TO On: 25-Jul-2017 Intent REDUCE CARDIOVASCULAR DISEASE RISK, INDIVIDUAL, [id number], ANNUAL, 15 MINUTES ([id number])By: Margarita Drake DO, DO, Kathleen SCREENING DIGITAL TOMOSYNTHESIS OF On: 25-Jul-2017 Intent BREAST ([id number])By: Margarita Drake DO, DO Margarita B 12 Injection, 1000 mcg (J3420)By: On: 25-Jul-2017 Intent Margarita Drake DO, DO, Comments: vitamin b12 1000mcg injectionlot: [id number]: 10/2018L DELT IMpt tolerated wellAD STACK CLERK Margarita Rocephon Injection, 1 Gm (J0696)By: On: 13-Mar-2017 Intent Libby Mai DO Radiology - Finger(s) - RightBy: Sergei On: 13-Mar-2017 Libby Zavala DO Comments: second finger rule out osteo Aerosol Treatment (18351)By: Noelle On: 23-Sep-2016 Margarita Zavala DO, DO, Kathleen Comments: albulterol .83%more a/e but more noise- inspir and expir wheeze and junky Bone Density StudyBy: Davian Mccray MD On: 12-Nov-2015 Intent MAMMOGRAM, SCREENING, BOTH BREAST On: 12-Nov-2015 Intent (98890)By: Davian Mccray MD CT - Chest (Without Contrast)By: Shazia On: 05-Nov-2015 Intent Davian ARAGON Comments: low dose DEXA SCAN AXIAL SKELETON (28880)By: On: 29-Oct-2015 Intent Shazia ARAGON, Davian Ultrasound - ThyroidBy: Shazia ARAGON, On: 29-Oct-2015 Intent Davian BILATERAL MAMMOGRAMS ([id number])By: Shazia On: 29-Oct-2015 Intent Davian ARAGON B [...] MAMMOGRAM, SCREENING, BOTH BREAST On: 07-Nov-2014 Intent (02447)By: Libby Mai DO A B 12 Injection, 1000 mcg (J3420)By: On: 07-Nov-2014 Intent Sergei GALARZA Libby A Comments: lot: [id number]: 06/19Dose: 1,000 mcgSite: l dltdLocation; IMby: B 12 Injection, 1000 mcg (J3420)By: On: 08-Oct-2014 Intent Sergei DO Libby A Comments: Lot:[id number]:05/20Dose:1mlRoute:IMSite:l armGiven By:RAMÓN signed BILATERAL MAMMOGRAMS ([id number])By: Sergei On: 08-Aug-2014 Intent Helga GALARZAa A INJECTION, VITAMIN B-12 On: 23-Jun-2014 Intent CYANOCOBALAMIN, UP TO 1000 MCG Comments: lot [id number] 03/19location L armroute imgiven by - msmithVIS [...] On: 21-Mar-2014 Intent HERMANN (Ankle Brachial Index) ([id number])By: On: 10-Feb-2014 Intent Fast DO, Libby A B 12 Injection, 1000 mcg (J3420)By: On: 11-Dec-2013 Intent Fast DO, Libby A Comments: Egdar dltd, [id number] flowsheetMegan CT - ChestBy: Fast DO, Libby A On: 11-Dec-2013 Intent Eprescribed prescriptions (G8553)By: On: 11-Dec-2013 Intent Fast DO, Libby A B 12 Injection, 1000 mcg (J3420)By: On: 30-Oct-2013 Intent Fast DO, Libby A Comments: lot: [id number]: 07/19site/route: L del/IMamt: 1mLVIS signed when applicableChelsea, HOSPICE CLINICAL SUPERVISOR Eprescribed prescriptions (G8553)By: On: 09-Sep-2013 Intent Rachel Leyva ELECTROCARDIOGRAM, COMPLETE (ECG) On: 27-Aug-2013 Intent (87814)By: Ann Marie Cassidy CNP SPECIMEN HNDLNG/TRNSPRT, OFFC > LAB On: 18-Jun-2013 Intent (21250)By: Ann Marie Cassidy CNP MAMMOGRAM, SCREENING, BOTH BREASTS On: 04-Jun-2013 Intent (14306)By: Fast DO Libby A DXA, BONE DENSITY, AXIAL SKELETON On: 04-Jun-2013 Intent (57262)By: Fast DO Libby A CT - ChestBy: [...] MAMMOGRAM, SCREENING, BOTH BREASTS On: 01-Feb-2013 Intent (09352)By: Sergei GALARZA Libby A Comments: end april CT - ChestBy: Fast DO Libby A On: 01-Feb-2013 Intent Comments: march or april B 12 Injection, 1000 mcg (J3420)By: On: 01-Feb-2013 Intent Sergei DO Libby A Eprescribed prescriptions (G8553)By: On: 01-Feb-2013 Intent Rachel Leyva B 12 Injection, 1000 mcg (J3420)By: On: 30-Oct-2012 Intent Rachel Leyva Comments: Lot:Exp:08/17Lot:[id number]:1mlRoute:imSite:L deltoidGiven by:BMY DXA, BONE DENSITY, AXIAL SKELETON On: 30-Oct-2012 Intent (98985)By: Helga Mai DOa A Eprescribed prescriptions (G8553)By: On: 30-Oct-2012 Intent Rachel Leyav Nuclear Medicine - ThyroidBy: Noelle On: 24-Sep-2012 Intent , Margarita Noelle DO, Margarita Esophagram with 13 mmm tabletBy: On: 06-Sep-2012 Intent Noelle DO, Margarita Noelle DO, Margarita Eprescribed prescriptions ([id number])By: On: 06-Sep-2012 Intent Allyn Prajapati LPN B 12 Injection, 1000 mcg (J3420)By: On: 30-Jul-2012 Intent Helga Mai DOa A Comments: Lot #:[id number] date: mount given: 1mlRoute: IMSite given: left deltoidGiven by: KADY Rehman CT - ChestBy: Helga Mai DOa A On: 30-Jul-2012 Intent Ultrasound - ThyroidBy: Fast DO, On: 30-Jul-2012 Intent Libby A Eprescribed prescriptions (G8553)By: On: 30-Jul-2012 Intent Rachel Leyva Eprescribed prescriptions (G8553)By: On: 05-Jul-2012 Intent Allyn Prajapati LPN MAMMOGRAM, SCREENING, BOTH BREASTS On: 23-Apr-2012 Intent (88208)By: Libby Mai DO CT - Chest (IV Contrast Needed)By: On: 21-Nov-2011 Intent Libby Mai DO Comments: thi is a follow up CT for abnormal ct chest in april 2011 TDAP VACCINE >7 IM (73547)By: On: 25-Jul-2011 Intent Rachel Leyva Comments: Lot:[id number]:07/21/13Amt:prefilledRoute:IMSite:left deltGiven By: ANGEL Anthony CT - Abdomen & PelvisBy: Sergei GALARZA, On: 25-Jul-2011 Intent Libby Ballard Comments: stat call wet read FLU VAC, SPLIT, >3 YEARS, INTRAMUSC On: 25-Jul-2011 Intent (74364)By: Rachel Leyva Comments: pt refuses CT - ChestBy: Libby Mai DO On: 20-Apr-2011 Intent Comments: pe protocol Ultrasound - ThyroidBy: Sergei GALARZA, On: 04-Apr-2011 Intent Libby Ballard Comments: to be done in 6 months Spirometry (52567)By: Libby Mai DO On: 16-Mar-2011 Intent A Comments: good effort and curve normal Pulse Oximetry (73321)By: Sergei GALARZA, On: 16-Mar-2011 Intent Libby Ballard Comments: 97% EKG (51857)By: Libby Mai DO On: 16-Mar-2011 Intent Comments: [...] MAMMOGRAM, SCREENING, BOTH BREASTS On: 17-Jan-2011 Intent (01769)By: Libby Mai DO Pulse Oximetry (14937)By: Khanh MCDANIEL, On: 14-Jun-2010 Intent Reema Aerosol Treatment (72934)By: Khanh On: 14-Jun-2010 Intent Ann Marie MCDANIEL DXA, BONE DENSITY, AXIAL SKELETON On: 23-Dec-2009 Intent (87125)By: Libby Mai DO MAMMOGRAM, SCREENING, BOTH BREASTS On: 23-Dec-2009 Intent (74432)By: Libby Mai DO A EKG (32910)By: Rachel Leyva On: 23-Dec-2009 Intent Comments: ekg- 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 no change normal axis MAMMOGRAM, SCREENING, BOTH BREASTS On: 25-Nov-2008 Intent (89479)By: Libby Mai DO EKG (55388)By: Libby Mai DO On: 25-Nov-2008 Intent Comments: ekg showed normal sinus with no lateral t wave inversioon and poor rwave progression- twave inversion anteriolry unchanged Spirometry (41113)By: Libby Mai DO On: 25-Nov-2008 Intent A Radiology - Chest- PA and LatBy: Sergei On: 25-Nov-2008 Intent Libby GALARZA Pulse Oximetry (48563)By: Sergei GALARZA, On: 25-Nov-2008 Intent Libby Ballard Bio Z (67925)By: Libby Mai DO On: 14-May-2008 Intent Comments: [...] On: 09-Oct-2006 Intent Libby GALARZA Bio Z (18669)By: Libby Mai DO On: 09-Oct-2006 Intent Comments: high svr and low normal cardiac output- so will add in [facility] Planned Medications INFUSION, NORMAL SALINE SOLUTION , [...] without anemia Hypomagnesemia : DISCONTINUED - MAGNESIUM (71040) Indication: Hypomagnesemia Macrocytosis without anemia : DISCONTINUED - METABOLIC PANEL, BASIC (43649) Indication: Macrocytosis without anemia Nonsmoker : How [...] Mixed hyperlipidemia : DISCONTINUED - LIPID PANEL (45357) Indication: Mixed hyperlipidemia Mixed hyperlipidemia : DISCONTINUED - METABOLIC PANEL, COMPREHENSIVE (21935) Indication: Mixed hyperlipidemia Mixed hyperlipidemia : DISCONTINUED - LIPID PANEL (84874) Indication: Mixed hyperlipidemia Diabetes mellitus type 2, uncontrolled, without complications : DISCONTINUED - METABOLIC PANEL, COMPREHENSIVE (40193) Indication: Diabetes mellitus type 2, uncontrolled, without [...] Advance Directives Name Dates Details Immunization Registry [place] - Effective on Effective: 25-Jul-201707/25/2017. Expiration date [...] failure, Vitamin D deficiency (268.9), CAD in [place] artery [facility] Office Visit On: [...] severe, Vitamin D deficiency (268.9), CAD in [place] artery [facility] Office Visit On: [...] bronc hitis, post viral cough-given z-pack and sataoiskgw-Xtnfi-lmomz not feeling good- fatigue, fever, chills, high [...] The patient does have durable power of litigation attorney and living will. The patient has noticed nothing from the geriatic depression scale. Other providers contributing to the patient's care are upholstery tech, gastrologist and driller machine. Encounter Diagnosis: BMI 26.0-26.9,adult, Hypomagnesemia, Nonsmoker, Pulmonary [...] issues sent to Transitional care unit at [facility]. Saw Dr. Greene in trasitional care, had [...] for xofran.Told it was colitis. Admitted to [facility] and had monitoring then cath found 25% [place] cardio myopthy, placed on carvediolol 6.25mg Recently went to [facility] seen after Nonstemi, and low EF 25% [...] is transitioning into care from a hospital ([facility] 10/23 to 10/27 pneumonia) and a [...] - Reason for hospitalization note: (was in [facility] for bronchitis I used [...] - Date: (cbc and cmp - Dr nian (rheum), ordered).Encounter Diagnosis: Mixed hyperlipidemia (272.2), Hypocalcemia, [...] The patient does have durable power of litigation attorney and living will. The patient has noticed lack of energy. Other providers contributing to the patient's care are practice advisor and other: (eye exam - 1 year [...] the fatigue is because traveling alot for [employer] and up late and trial coming upEncounter [...] shot- and she hasnt been back to [facility]- us reviewed and told her [...] evaluation: Surgery is with Dr. Yepez in [place]- [phone] and fax- [phone]- had stimulator removed- then had mri of [...] pressure (and trying to use hands or appliance adjuster anything). There is no radiation. Associated symptoms [...] bp high and said becuase son in [place], [ADDITIONAL REASON] Follow up, Laboratory Test Results [...] poorly. Patient has been compliant with instructions. [facility] End: 09-Aug-2006 12:15 nt medication use: [...] better- couldnt get insurance to pay for [employer]- [employer] works for her- thinks she needs to [...]
--- OUTSIDE RECORDS SUMMARY | 2018-10-01 09:48 | XMS RPT_ITS | Continuity of Care Document ---
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) Status: Active Canker sore [...] streudel for braekfast and fish sandwich at [facility] Status: Active Dysphagia, unspecified dysphagia (787.20) Comments: awaiting bx Status: Active Dysthymic disorder (F34.1, 300.4) Status: Active Elevated platelet count (R79.89, 790.6) Status: Active Encounter for annual general medical examination with abnormal findings in adult (Z00.01, V70.0) Status: Active Encounter for screening for malignant neoplasm of colon (Renamed from Special screening for malignant neoplasms, colon) (Z12.11, V76.51) Comments: last scope 03/20 [facility] Status: Active Encounter for screening mammogram [...] d ay (can buy a pedometer at [employer]), -5 days of week of 30 mins [...] 10-Apr-2018 Active VITAMIN C & E COMBINATION, [id number] (Oral Capsule) 1 (one) Capsule Capsule qd [...] : 09-Apr-2018 Inactive Comments:Sixty script given to nquqmpgB15.0 AUGMENTIN, 875-125MG (Oral Tablet) 1 Tablet bid [...] : 28-Jan-2016 End : 07-Feb-2016 Inactive NYSTATIN, 124531AHSU/GM (External Cream) apply Cream bid to affected [...] Start : 25-Oct-2007 Inactive VITAMIN D (ERGOCALCIFEROL), 81357LBUM (Oral Capsule) 1 Capsule q weekly for [...] Quantity: 10 {Vial} Refills: 3 Ordered:02-Sep-2016 Slarb ORCHID HAND, Marlyn Start : 21-Mar-2014 End : 02-Sep-2016 [...] Quantity: 4 {Tablet} Refills: 0 Ordered:07-Oct-2016 Slarb ORCHID HAND, Marlyn Start : 23-Sep-2016 End : 07-Oct-2016 [...] physical examination (Z01.818, V72.83) Comments: ekg at [facility] with records from recent hospitalization Status: [...] (R06.02, 786.05) Comments: See [facility] letter [facility] REspiratory scanned document Dr Munguia [...] and Obrych, surgical decompression /fusion c3-c6- [facility] Completed Date Value Details 07-May-2018 Discharge Instruction Result: Comments: See Note; NOTES: [facility] Medical Records Department [address] [place] [address] Discharge Instruction 05/07/18 0931 MR#: [id number] Acct: [id number] Name: Radha MAHARAJ Rep #: [id number] : 1945 72 From: Parminder Blanco MD [...] Department Summary Result: Comments: See Note; NOTES: [facility] Medical Records Department [address] [place] [address] Emergency Department Summary 05/07/18 0838 MR#: [id number] Acct: [id number] Name: MAR MAHARAJ Rep #: [id number] : 1945 72 From: Parminder Blanco MD PCP: Margarita Drake DO Status: DEP ER - ER Visit Summary Date of Service: 05/07/18 Chief Complaint: Nausea, vomiting and diarrhea History of Present Illness: The patient is a 72 F has a past medical history of valvular heart disease, hypertension, cholesterol spinal stenosis and multiple surgeries. Patient states she zoran t [place] [employer] game on Monday. And she developed nausea [...] Dehydration This note was ge nerated with [employer] dictation software. It may contain incorrect words, [...] problems, contact your Primary Care Provider. Call [facility] ([phone]) or report to the closest Emergency Room. Call 911 if necessary. 05/07/18 1545 <Elec tronically signed by Parminder Blanco MD> Date Parminder Blanco MD Cosigner Signature (If Indicated): Date CC: Margarita Drake DO 22-Feb-2018 Downtime Report Result: Comments: See Note; NOTES: [facility] Medical Records Department [address] [place] [address] Downtime Report MR#: [id number] Acct: [id number] Name: MAR MAHARAJ Rep #: [id number] : 1945 72 From: Gilson Washington PCP: Margarita Drake DO Status: REG CLI This patient was seen during an EMR downtime February 05, 2018 - February 12, 2018. This patient may have a combination o f paper and electronic documentation or all paper documentation. All documentation is viewable within the e-chart portion of [facility] for each patient visit. 08-Feb-2018 Spine Lumbar (Routine) Result: Comments: See Note; NOTES: [facility] Imaging Services [address] [place] [address] Spine Lumbar (Routine) MR#: [id number] Acct: [id number] Name: MAR MAHARAJ Rep #: [id number] : 1945 F 72 From: Dylan Donato MD PCP: Margarita Drake DO Status: REG CLI Study: Spine Lumbar (Routine) Date of Exam: 02/08/18 Exam# [id number] Ordering Dr: De Yepez STUDY: MRI LUMBAR [...] , CC: NICO YEPEZ; Margarita Drake DO Auto Rental Supervisor: Signed 08-Feb-2018 Spine Lumbar without Contrast Result: Comments: See Note; NOTES: [facility] Imaging Services [address] [place] [address] Spine Lumbar without Contrast MR#: [id number] Acct: [id number] Name: MAR MAHARAJ Rep # : [id number] : 1945 F 72 From: Robles Mejia PCP: Margarita Drake DO Status: REG CLI Study: Spine Lumbar without Contrast Date of Exam: 02/08/18 Exam# [id number] Ordering Dr: De Yepez STUDY: C T [...] paraspinous soft tissue structures. ORDE R #: [id number] CT/Spine Lumbar without Contrast IMPRESSION: Multilevel degenerative change discussed above. Hardware as described. Right L3 pedicle screw appears broken. Grade 1 anterolisthesis of L4 on L5. Laminectomies. Demineralization. Electronically Signed: Robles Mejia DO at 10:57 EDT , Service support , CC: DE Drake DO Auto Rental Supervisor: Signed 09-Jan-2018 Pulmonary Visit Report Result: Comments: See Note; NOTES: [facility] [address] [place] [address] OFFICE VISIT Date of Service: 01/09/18 MR#: [id number] Acct: [id number] Name: MAR HOLLIDAY Rep #: [id number] : 1945 Provider: Adair Wu MD Age/Sex: 72/F Location[place] [facility] Status: Signed Assessment AND Plan Problems 1. [...] 6 M FU Chief Complaint: Follow up [place] Worker Required: No DME Vendor: CHUN Accompanie d [...] 10/12/17 [History Confirmed 12/03/17] Hydrocodone Bitart/Apap 5-325 [Clifton 5MG-325MG] 1 tab PO Q6H PRN PRN 3 Days #10 tab 12/03/17 [Rx] sodium chloride 0.65 % nasal spray aerosol 2 spray INTRANASAL QHS ml 01/09/18 [History Confirmed 01/09/18] PFSH Medical History Hyperlipidemia (Chronic) Elevated blood pressure reading without diagnosis of hypertension (Chronic) Other assisted (current) drug therapy (Chronic) Nonrheumatic aortic (valve) [...] Date (if applicable) CC: Ann Marie Cassidy PREPARATION SUPERVISOR; Margarita Drake 03-Dec-2017 Emergency Department Summary Result: Comments: See Note; NOTES: [facility] Medical Records Department [address] [place] [address] Emergency Department Summary 12/03/17 1656 MR#: [id number] Acct: [id number] Name: MAR MAHARAJ Rep #: [id number] : 1945 72 From: Arya Torrez MD [...] blunt trauma This note was generated with [employer] dictation software. It may contain incorrect words, spelling, and punctuation that were not noted in review of the chart prior to signing ED Disposition - Plan for ED Patient: Disposition: Home or Assisted Living Chief Complaint: Chest Other Instructions: ED Contusion Vs Minor Fx Rib Prescriptions: Hydrocodone Bitart/Apap 5-325 [Clifton 5MG-325MG] 1 tab PO Q6H PRN PRN 3 Days #10 tab PRN Reason: Alena n Referrals: Margarita Drake, [Primary Care Provider] - 1 Week if not improving What to do if you have Problems For any increased pain, shortness of breath, bleeding, nausea or vomiting, chest pa in, or any unexpected problems, contact your Primary Care Provider. Call [facility] ([phone]) or report to the closest Emergency Room. Call 911 if necessary. 12/03/17 1706 <Electron ically signed by Arya Torrez MD> Date Arya Torrez MD Cosigner Signature (If Indicated): Date CC: Margarita Drake DO 03-Dec-2017 Chest PA and Lateral Result: Comments: See Note; NOTES: [facility] Imaging Services [address] [place] [address] Chest PA and Lateral MR#: [id number] Acct: [id number] Name: MAR MAHARAJ Rep #: [id number] : 1945 F 72 From: Lotus Anthony MD PCP: Margarita Drake DO Status: DEP ER Study: Chest PA and Lateral Date of Exam: 12/03/17 Exam# [id number] Ordering Dr: Arya Torrez MD STUDY: X-RAY [...] CC: Margarita Drake DO; Arya Torrez MD Auto Rental Supervisor: Signed 18-Oct-2017 SCREENING MAMM (CAD), BILAT Result: Comments: See Note; NOTES: [facility] Imaging Services [address] [place] [address] SCREENING MAMM (CAD), BILAT MR#: [id number] Acct: [id number] Name: MAR MAHARAJ Rep #: [id number] : 1945 F 72 From: Florian Valenzuela MD PCP: Margarita Drake DO Status: REG CLI Study: SCREENING MAMM (CAD), BILAT Date of Exam: 10/18/17 Exam# [id number] Ordering Dr: Alysia Drake DO MAMMOGRAPHY - [...] delay biopsy of a clinically suspicious abnormality. [id number] Electronically Signed: Florian Howard i, MD at 13:51 EST Tel [phone], Service support , CC: Margarita Drake DO Auto Rental Supervisor: Signed 13-Oct-2017 Cardiology Visit Report Result: Comments: See Note; NOTES: [facility] [address] [place] [address]. [address] [place] [address] OFFICE VISIT Date of Service: 10/13/17 MR#: [id number] Acct: [id number] Name: MAR MAHARAJ Rep #: [id number] : 1945 Provider: Sergio Lawler MD Age/Sex: 72/F Location[place] [facility] Status: Signed HPI HPI Chief [...] reading without diagnosis of hypertension (Chronic) Other assisted (current) drug ther apy (Chronic) Nonrheumatic aortic (valve) insufficiency (Chronic) Nonrheumatic tricuspid (valve) insufficiency (Chronic) Other secondary pulmonary hypertension (Chronic) Nonischemic cardiomyopathy ([employer] deangelo) Fatigue (Chronic) Hx pulmonary embolism (Resolved) [...] AND Plan 1. Coronary artery disease involving kaw coronary artery of kaw heart without angina pectoris I25.10 Mild Plan [...] vis,est,level 3 Diagnoses Coronary artery disease involving kaw coronary artery of kaw heart without angina pectoris I25.10 Coronary Disease-Associated Artery/Lesion type: kaw artery [place] vs. transplanted heart: kaw heart Associated angina: without angina Essential hyperten tamika I10 Hypertension type: essential hypertension Coding Level of Care Code Off vis,est,level 3 Diagnoses Coronary artery disease involving kaw coronary artery of kaw heart without angina pect wilber I25.10 Coronary Disease-Associated Artery/Lesion type: kaw artery [place] vs. transplanted heart: kaw heart Associated angina: without angina Essential hypertension I10 Hypertension type: esse ntial hypertension 10/13/17 1546 <Electronically signed by Sergio Lawler MD> Date Sergio Lawler MD Cosigner Signature: Date _ (if applicable) CC: Margarita Drake DO 26-Sep-2017 Chest PA and Lateral Result: Comments: See Note; NOTES: [facility] Imaging Services [address] [place] [address] Chest PA and Lateral MR#: [id number] Acct: [id number] Name: MAR MAHARAJ Rep #: [id number] : 1945 F 72 From: Quinn Pringle PCP: Margarita Drake DO Status: REG CLI Study: Chest PA and Lateral Date of Exam: 09/26/17 Exam# [id number] Ordering Dr: Allyn Manley PREPARATION SUPERVISOR-C STUDY: X-RAY C HEST REASON FOR EXAM: [...] , CC: HUANG Manley; Margarita Drake DO Auto Rental Supervisor: Signed 22-May-2017 History and Physical Exam Result: Comments: See Note; NOTES: [facility] Medical Records Department [address] [place] [address] History and Physical 05/22/17 1809 MR#: [id number] Acct: [id number] Name: RUDY MAHARAJ Rep #: [id number] : 1945 71 From: Edward Chao DO PCP: Ann Marie Casisdy Status: REG ER Y Location: ED Problem [...] knee (Chronic) Sinusitis, chronic (Chronic) Takotsubo cardiomyopathy ([employer] deangelo) chairi malformations/p posterior decompr (Chronic) Allergies [...] 7 back surgeries Psychiatric History: Anxiety, Depression 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 Call [facility] barnard ([phone]) or report to the closest Emergency Room. Call 911 if necessary. 05/22/17 1710 <Electronically signed by Angelo William MD> Date Angelo William MD Cosigner Signature (If Indicated): Date CC: Ann Marie Cassidy 22-May-2017 Brain/Head without Contrast Result: Comments: See Note; NOTES: [facility] Imaging Services [address] [place] [address] Brain/Head without Contrast MR#: [id number] Acct: [id number] Name: MAR MAHARAJ Rep #: [id number] : 1945 F 71 From: Dorothy Barber MD PCP: Ann Marie Cassidy Status: REG ER Study: Brain/Head without Contrast Date of Exam: 05/22/17 Exam# [id number] Ordering Dr: Angelo William MD STUDY : [...] CC: Ann Marie Cassidy; Angelo William MD Auto Rental Supervisor: Signed 22-May-2017 Chest 1 View (Portable) Result: Comments: See Note; NOTES: [facility] Imaging Services [address] [place] [address] Chest 1 View (Portable) MR#: [id number] Acct: [id number] Name: MAR MAHARAJ Rep #: [id number] : 1945 F 71 From: Dorothy Barber MD PCP: Ann Marie Cassidy Status: REG ER Study: Chest 1 View (Portable) Date of Exam: 05/22/17 Exam# [id number] Ordering Dr: Angelo William MD STUDY: X-RAY [...] CC: Ann Marie Cassidy; Angelo William MD Auto Rental Supervisor: Signed 17-May-2017 Emergency Department Summary Result: Comments: See Note; NOTES: [facility] Medical Records Department [address] [place] [address] Emergency Department Summary 05/17/17 1543 MR#: [id number] Acct: [id number] Name: MAR MAHARAJ Rep #: [id number] : 1945 71 From: Tab Peacock MD [...] problems, contact your Primary Care Provider. Call [facility] ([phone]) or report to the closest Emergency Room. Call 911 if necessary. 05/17/17 1652 <Electronically signed b austin Peacock MD> Date Tab Peacock MD Cosigner Signature (If Indicated): Date CC: Ann Marie Cassidy 28-Apr-2017 Emergency Department Summary Result: Comments: See Note; NOTES: [facility] Medical Records Department [address] [place] [address] Emergency Department Summary 04/28/17 1059 MR#: [id number] Acct: [id number] Name: MAR MAHARAJ Rep #: [id number] : 1945 71 From: Tab Peacock MD [...] Primary Care Provider. Call [facility] ([phone]) or report to the closest Emergency Room. Call 911 if necessary. 04/28/17 1306 <Electronically signed by Tab Peacock MD> Date Tab Peacock MD Cosigner Signature (If Indicated): Date CC: Ann Marie Cassidy 28-Apr-2017 Chest 1 View (Portable) Result: Comments: See Note; NOTES: [facility] Imaging Services [address] [place] [address] Chest 1 View (Portable) MR#: [id number] Acct: [id number] Name: MAR MAHARAJ Rep #: [id number] : 1945 F 71 From: Sekou Bose DO PCP: Ann Marie Cassidy Status: REG ER Study: Chest 1 View (Portable) Date of Exam: 04/28/17 Exam# [id number] Ordering Dr: Tab Peacock MD STUDY: X-RAY [...] CC: Ann Marie Cassidy; Tab Peacock MD Auto Rental Supervisor: Signed 12-Apr-2017 Echocardiogram Complete Result: Comments: See Note; NOTES: [facility] Cardiovascular Services [address] [place] [address] Echo Complete 04/12/17 1150 MR#: [id number] Acct: [id number] Name: MAR MAHARAJ Rep #: [id number] : 1945 71 From: Sergio Lawler MD Attending Dr: Nuris ARAGON,Sergio Status: REG CLI Ordering Dr: Sergio Lawler MD Date: 04/12/17 Location: [facility] Sex: F C Admitted: Reason For Study: [...] Dictated: 04/12/17 1 150 Date Transcribed: 04/12/171648 Auto Rental Supervisor: Signed 13-Mar-2017 Finger(s) Min 2 Views Result: Comments: See Note; NOTES: [facility] Imaging Services [address] [place] [address] Verdana 4d Finger(s) Min 2 Views MR#: [id number] Acct: [id number] Name: MAR MAHARAJ Katy p #: [id number] : 1945 F 71 From: Maldonado Pablo DO PCP: Ann Marie Cassidy Status: REG CLI Study: Finger(s) Min 2 Views Date of Exam: 03/13/17 Exam# [id number] Ordering Dr: Libby Mai DO STUDY: X-RA [...] Maldonado DO Samy at 22:01 EDT Tel [phone], Service support , CC: Ann Marie Mai DO Auto Rental Supervisor: Signed 15-Feb-2017 Cerv Spine 4 or 5 Views Result: Comments: See Note; NOTES: [facility] Imaging Services [address] [place] [address] Verdana 4d Cerv Spine 4 or 5 Views MR#: [id number] Acct: [id number] Name: MAR MAHARAJ Rep #: [id number] : 1945 F 71 From: Vitaly Turner MD PCP: Ann Marie Cassidy Status: REG CLI Study: Cerv Spine 4 or 5 Views Date of Exam: 02/15/17 Exam# [id number] Ordering Dr: De Yepez STUDY: X -RAY [...] Service support , CC: Ann Marie YEPEZ Auto Rental Supervisor: Signed 14-Feb-2017 Spine Lumbar (Routine) Result: Comments: See Note; NOTES: [facility] Imaging Services [address] [place] [address] Anju 4d Spine Lumbar (Routine) MR#: [id number] Acct: [id number] Name: MAR MAHARAJ ep #: [id number] : 1945 F 71 From: Dylan Donato MD PCP: Ann Marie Cassidy Status: REG CLI Study: Spine Lumbar (Routine) Date of Exam: 02/14/17 Exam# [id number] Ordering Dr: Abdiel Betts MD LORENA DY: [...] CC: Ann Marie Cassidy; Abdiel Betts MD Auto Rental Supervisor: Signed 22-Jan-2017 Abdomen/Pelvis without Cont Result: Comments: See Note; NOTES: [facility] Imaging Services [address] [place] [address] Verdana 4d Abdomen/Pelvis without Cont MR#: [id number] Acct: [id number] Name: JOHN MAHARAJ Rep #: [id number] : 1945 F 71 From: Jeb Piedra MD PCP: Ann Marie Cassidy Status: REG ER Study: Abdomen/Pelvis without Cont Date of Exam: 01/22/17 Exam# [id number] Ordering Dr: Stacy Corey MD STUDY: CT [...] CC: Ann Marie Cassidy; Noelle Corey MD Auto Rental Supervisor: Signed 25-Dec-2016 Venous Duplex Lower Extremity Result: Comments: See Note; NOTES: [facility] Cardiovascular Services [address] [place] [address] Venous Duplex US, Unilateral 12/23/16 1042 MR#: [id number] Acct: [id number] Name: MAR DEAN Rep #: [id number] : 1945 71 From: David Hawthoren MD Attending Dr: Glenn Ro Status: REG [...] Date Dictated: 12/23/16 1042 Date Transcribed: 12/25/161936 Auto Rental Supervisor: Signed 19-Dec-2016 Chest 1 View (Portable) Result: Comments: See Note; NOTES: [facility] Imaging Services [address] [place] [address] Verdana 4d Chest 1 View (Portable) MR#: [id number] Acct: [id number] Name: MAR MAHARAJ Rep #: [id number] : 1945 F 71 From: Alfa Bettencourt MD PCP: Ann Marie Cassidy Status: REG ER Study: Chest 1 View (Portable) Date of Exam: 12/19/16 Exam# [id number] Ordering Dr: Edin Rodriguez MD STUDY: X- [...] CC: Ann Marie Cassidy; Edin Rodriguez MD Auto Rental Supervisor: Signed 19-Dec-2016 Abdomen/Pelvis without Cont Result: Comments: See Note; NOTES: [facility] Imaging Services [address] [address] Verdana 4d Abdomen/Pelvis without Cont MR#: [id number] Acct: [id number] Name: JOHN MAHARAJ Rep #: [id number] : 1945 F 71 From: Alfa Bettencourt MD PCP: Ann Marie Cassidy Status: REG ER Study: Abdomen/Pelvis without Cont Date of Exam: 12/19/16 Exam# [id number] Ordering Dr: Edin Rodriguez MD S KARINEDY: [...] support , CC: Ann Marie Cassidy; Edin Rodirguez MD Auto Rental Supervisor: Signed 15-Dec-2016 Emergency Department Summary Result: Comments: See Note; NOTES: [facility] Medical Records Department [address] [place] [address] Emergency Department Summary MR#: [id number] Acct: [id number] Name: JOHN MAHARAJ Rep #: [id number] : 1945 71 From: Shon Amaya MD [...] pain SHON AMAYA MD T: RUFUS JOB: [id number] 12/15/16 1522 <Electronically signed by Shon Amaya MD> Date Shon Amaya MD Cosigner Signature (If Indicated): Date CC: Ann Marie Cassidy Date Dictated: 12/13/162342 Date Transcribed: 12/13/162342 Auto Rental Supervisor: Signed 15-Dec-2016 12 Lead Electrocardiogram Result: Comments: See Note; NOTES: [facility] Cardiovascular Services [address] [place] [address] 12 Lead EKG 12/13/161602 MR#: [id number] Acct: [id number] Name: CAROL ANNMARSUDHA Burns p #: [id number] : 1945 71 From: Astrid Merlos MD [...] undetermined Abnormal ECG Confirmed by ASTRID MERLOS ([id number]), photo editor CHRISTIAN WASHINGTON ([id number]) on 017 1:15:30 PM Referred By: JOSE LUIS Confirmed By:ASTRID MERLOS 12/15/16 1315 Date Astrid Merlos MD CC: Ann Marie Cassidy Date Dictated: 12/13/16 1603 Date Transcribed: 12/13/161602 Auto Rental Supervisor: Signed 14-Dec-2016 Venous Duplex Lower Extremity Result: Comments: See Note; NOTES: [facility] Cardiovascular Services [address] [place] [address] Venous Duplex US, Unilateral 12/13/16 1612 MR#: [id number] Acct: [id number] Name: MAR DEAN Rep #: [id number] : 1945 71 From: Rj Cleary MD [...] Date Dictated: 12/13/16 1612 Date Transcribed: 12/14/16602 Auto Rental Supervisor: Signed 13-Dec-2016 Discharge Instruction Result: Comments: See Note; NOTES: [facility] Medical Records Department [address] [facility] [place] [address] Discharge Instruction 12/13/16 190 MR#: [id number] Acct: [id number] Name: CAROL ANNRadhaNellie Muñoz Rep #: [id number] : 1945 71 From: Shon Amaya MD [...] your Primary Care Provider. Call [facility] ([phone]) or report to the closest Emergency Room. Call 911 if necessary. 12/13/162044 <Electronically signed by Shon Amaya MD&amp ;#62; Date Shon Amaya MD Cosigner Signature (If Indicated): Date CC: Ann Marie Cassidy 13-Dec-2016 Chest 1 View (Portable) Result: Comments: See Note; NOTES: [facility] Imaging Services [address] [place] [address] Verdana 4d Chest 1 View (Portable) MR#: [id number] Acct: [id number] Name: MAR MAHARAJ Rep #: [id number] : 1945 F 71 From: Trent Arias MD PCP: Ann Marie Cassidy Status: REG ER Study: Chest 1 View (Portable) Date of Exam: 12/13/16 Exam# [id number] Ordering Dr: Shon Amaya MD STUDY: X-RAY [...] MD at 17:07 EDT , Service support [phone], CC: Ann Marie Cassidy; Shon Amaya MD Auto Rental Supervisor: Signed 13-Dec-2016 Abdomen/Pelvis W IV Cont ONLY Result: Comments: See Note; NOTES: [facility] Imaging Services [address] [place] [address] Verdana 4d Abdomen/Pelvis W IV Cont ONLY MR#: [id number] Acct: [id number] Name: LILI MAHARAJ Rep #: [id number] : 1945 F 71 From: Trent Arias MD PCP: Ann Marie Cassidy Status: REG ER Study: Abdomen/Pelvis W IV Cont ONLY Date of Exam: 12/13/16 Exam# [id number] Ordering Dr: Shon Amaya MD STUDY: CT [...] MD at 18:25 EDT , Service support [phone], CC: Ann Marie Cassidy; Shon Amaya MD Auto Rental Supervisor: Signed 15-Nov-2016 History and Physical Exam Result: Comments: See Note; NOTES: [facility] Medical Records Department [address] [place] [address] History and Physical 11/09/16 1003 MR#: [id number] Acct: [id number] Name: Radha MAHARAJ Rep #: [id number] : 1945 71 From: Glenn Ro PCP: Ann Marie Cassidy Status: PRE IN Location: [facility] DATE OF SERVICE: 11/22/2016 This is Glenn [...] hip arthroplasty in 2003, Dr. Darien Avina, . 2. Hysterectomy. 3. Appendectomy. 4. Cholec ystectomy. 5. Brain surgery x2 Arnold-Chiari malformation. 6. Carpal tunnel bilaterally. 7. Cervical surgery, December 2013 at [place]. 8. Right total knee arthroplasty on August 19, 2014, Dr. Darien Avina , . 9. Laminectomy 2000, instrumentation lumbar fusion. 10. Right total hip arthroplasty in 2013, revision assistive devices. The patient admits to full upper dentures. Denies glasses or hearing aids. SOCIAL HISTORY: The patient is retired, works part-time. Denies tobacco use, denies alcohol use, denies illicit drug use. REVIEW OF SYSTEMS: Documented in the [facility] [facility] medical hi story sheet, please refer [...] of left knee dated October 17, 2016, [facility], weightbearing, AP, tunnel, sunrise, lateral views [...] the hospital. YADIRA Narvaez T: RUFUS JOB: [id number] 11/15/16 0839 <Electronically signed by Glenn Ro > Date: Time: Glenn Ro CC: Ann Marie Cassidy; Glenn Ro Date Dictated: 11/09/16 1003 Date Transcribed: 7 1003 Auto Rental Supervisor: Signed ____ I have re-examined the patient. There are no clinical changes since date of exam. ____ See Progress Notes for Changes ____ Dictated on Admission Date: ___ Time: Signature: 24-Oct-2016 History and Physical Exam Result: Comments: See Note; NOTES: [facility] Medical Records Department [address] [place] [address] History and Physical 10/19/16 1537 MR#: [id number] Acct: [id number] Name: Radha MAHARAJ Rep #: [id number] : 1945 71 From: Glenn Ro PCP: Ann Marie Cassidy Status: PRE IN Location: [facility] DATE OF SERVICE: 10/25/2016 This is YADIRA [...] a previous right total knee arthroplasty in [facility] er 2013, is very pleased with the [...] arthroplasty i n 2003, Dr. Darien Avina, [facility]. 2. Hysterectomy. 3. Appendectomy. 4. Cholecystectomy. 5. Brain surgery x2. Arnold-Chiari malformation. 6. Carpal tunnel bilaterally. 7. Cervical surgery in ril 2013 in [place]. 8. Right total knee arthroplasty on August 19, 2014, Dr. Darien Avina, [facility]. 9. Laminectomy 2001 instrumentation, lumbar fusion. 10. Right total hip arthroplasty in 2013 , revision. ASSISTIVE DEVICES: The patient admits to full upper dentures. Denies glasses or hearing aids. SOCIAL HISTORY: The patient is retired, but works part-time. She denies tobacco use, denies al cohol use, denies illicit drug use. REVIEW OF SYSTEMS: Documented in the [facility] medical history sheet. Please refer to [...] X-rays of l eft knee dated 10/17/2016, [facility], weightbearing, AP, tunnel, [...] Ro Date Dictated: 10/19/161536 Date Transcribed: 10/19/161536 Auto Rental Supervisor: Toni igned ____ I have re-examined the patient. There are no clinical changes since date of exam. ____ See Progress Notes for Changes ____ Dictated on Admission Date: Time: Sig nature: 23-Oct-2016 Chest PA and Lateral Result: Comments: See Note; NOTES: [facility] Imaging Services [address] [place] [address] Verdana 4d Chest PA and Lateral MR#: [id number] Acct: [id number] Name: MAR MAHARAJ Rep #: [id number] : 1945 F 71 From: Heraclio Meredith MD PCP: Ann Marie Cassidy Status: PRE ER Study: Chest PA and Lateral Date of Exam: 10/23/16 Exam# [id number] Ordering Dr: Edin Horton MD STUDY: X-RAY [...] MD at 14:44 EST , Service support [phone], CC: Mary Cassidy; Edin Horton MD Auto Rental Supervisor: Signed 23-Sep-2016 Echocardiogram Complete Result: Comments: See Note; NOTES: [facility] Cardiovascular Services [address] [place] [address] Echo Complete 09/23/16 1311 MR#: [id number] Acct: [id number] Name: MAR MAHARAJ Rep #: [id number] : 1945 71 From: Sergio Lawler MD [...] Dictated: 09/23/16 1311 Date Transcribed: 09/23/16 1521 Auto Rental Supervisor: Signed 21-Sep-2016 12 Lead Electrocardiogram Result: Comments: See Note; NOTES: [facility] Cardiovascular Services [address] [place] [address] 12 Lead EKG 09/18/16 1204 MR#: [id number] Acct: [id number] Name: MAR MAHARAJ Katy p #: [id number] : 1945 71 From: Cade Harrison MD [...] ECG Confirmed by OMAR ARAGON, CADE ([id number]), photo editor CHRISTIAN WASHINGTON ([id number]) on 09/21/2016 1:40:15 PM Referred By: FLORIN Confirmed By:CADE HARRISON MD 09/21/16 1340 Date Cade Harrison MD CC: Ann Marie Cassidy Date Dictated: 09/18/16 1204 Date Transcribed: 09/18/16 1204 Auto Rental Supervisor: Signed 20-Sep-2016 Emergency Department Summary Result: Comments: See Note; NOTES: [facility] Medical Records Department [address] [place] [address] Emergency Department Summary MR#: [id number] Acct: [id number] Name: JOHN MAHARAJ Rep #: [id number] : 1945 71 From: Edin Rodriguez MD [...] C: Ann Marie Cassidy T: NTS JOB: [id number] 09/20/16 1522 <Electronically signed by Edin Rodriguez MD> Date __ Edin Rodriguez MD Cosigner Signature (If Indicated): Date CC: Ann Marie Cassidy Date Dictated: 09/18/16 1339 Date Trans cribed: 09/18/16 1339 Auto Rental Supervisor: Signed 18-Sep-2016 Discharge Instruction Result: Comments: See Note; NOTES: [facility] Medical Records Department [address] [place] [address] Discharge Instruction 09/18/16 1334 MR#: [id number] Acct: [id number] Name: Radha MAHARAJ Rep #: [id number] : 1945 71 From: Edin Rodriguez MD [...] problems, contact your Primary Care Provider. Call [facility] ([phone]) or report to the closest Emergency Room. Call 911 if necessary. 09/18/16 1336 & #60;Electronically signed by Edin Rodriguez MD> Date Edin Rodriguez MD Cosigner Signature (If Indicated): Date CC: Ann Marie Khanh 18-Sep-2016 Chest PA and Lateral Result: Comments: See Note; NOTES: [facility] Imaging Services [address] [place] [address] Verdana 4d Chest PA and Lateral MR#: [id number] Acct: [id number] Name: CAROL ANNMAR S Rep #: [id number] : 1945 F 71 From: Rolly Aviles MD PCP: Ann Marie Cassidy Status: REG ER Study: Chest PA and Lateral Date of Exam: 09/18/16 Exam# [id number] Ordering Dr: Edin Rodriguez MD STUDY: X-RAY [...] 13:29 EST Te l , Service support [phone], CC: Ann Marie Cassidy; Edin Rodriguez MD Auto Rental Supervisor: Signed 17-Aug-2016 Knee 4 or More Views Result: Comments: See Note; NOTES: [facility] Imaging Services [address] [place] [address] Verdana 4d Knee 4 or More Views MR#: [id number] Acct: [id number] Name: MAR MAHARAJ Rep #: [id number] : 1945 F 71 From: Florian Valenzuela MD PCP: Davian Mccray Status: REG CLI Study: Knee 4 or More Views Date of Exam: 08/17/16 Exam# [id number] Ordering Dr: Gemma Nina MD STUD Y: [...] Florian Valenzuela MD at 15:48 EST Tel [phone], Service support [phone], CC: Tejal Mccray; Gemma Nina MD Auto Rental Supervisor: Signed 17-Aug-2016 Tibia AND Fibula 2 Views Result: Comments: See Note; NOTES: [facility] Imaging Services [address] [place] [address] Verdana 4d Tibia AND Fibula 2 Views MR#: [id number] Acct: [id number] Name: MAR MAHARAJ Rep #: [id number] : 1945 F 71 From: Florian Valenzuela MD PCP: Davian Mccray Status: REG CLI Study: Tibia AND Fibula 2 Views Date of Exam: 08/17/16 Exam# [id number] Ordering Dr: Gemma Nina STUDY: X-RAY - [...] Florian Valenzuela MD at 15:42 EST Tel [phone], Service support [phone], CC: Davian Nina MD Auto Rental Supervisor: Signed 01-Jul-2016 Venous Duplex Lower Extremity Result: Comments: See Note; NOTES: [facility] Cardiovascular Services [address] [place] [address] Venous Duplex US, Unilateral 07/01/16 0850 MR#: [id number] Acct: [id number] Name: MAR MAHARAJ Rep #: [id number] : 1945 70 From: David Hawthorne MD Attending Dr: Luly Noriega PREPARATION SUPERVISOR Status: REG CLI Ordering Dr: Luly Noriega PREPARATION SUPERVISOR-C Date: 07/01/16 Location: [facility] Sex: F C [...] called and/or faxed augmentation. to Luly Noriega PREPARATION SUPERVISOR @ 9:20 am @ [facility] is [...] Date Dictated: 07/01/16 0850 Date Transcribed: 07/01/161936 Auto Rental Supervisor: Signed 07-Jun-2016 6 Minute Walk Test Result: Comments: See Note; NOTES: [facility] Pulmonary Services/Neurology [address] [place] [address] MR#: [id number] Acct: [id number] Name: MAR MAHARAJ Rep #: [id number] : 1945 70 From: Adair Wu MD Referring Dr: Luly Noriega NP Date: Ordering Dr: Sex: F C Location: PSN PSN 6 Minute Walk Test - 6 Minute Walk Test 6 Minute Walk Test: 6 Minute Walk Test PSN:6-Minute Walk Test Start: 06/07/16 11:18 Freq: Status: Active Document 06/07/16 11:18 REK (Rec: 06/07/16 11:21 REK [id number]) 6 Minute Walk Test Date Performed 06/07/16 [...] CC: Date Dictated: 06/07/161540 Date Transcribed: 06/07/161540 Auto Rental Supervisor: Adair Wu Signed 25-Apr-2016 Chest PA and Lateral Result: Comments: See Note; NOTES: [facility] Imaging Services [address] [place] [address] Verdana 4d Chest PA and Lateral MR#: [id number] Acct: [id number] Name: MAR MAHARAJ Re p #: [id number] : 1945 F 70 From: Stephen Walton DO PCP: Davian Mccray Status: REG ER Study: Chest PA and Lateral Date of Exam: 04/25/16 Exam# [id number] Ordering Dr: Cristhian Mandujano MD STUDY: X-R [...] Stephen Walton DO at 20:12 EDT Tel [phone], Service support [phone], CC: CRISTHIAN MANDUJANO MD; Davian Mccray Auto Rental Supervisor: Signed 25-Apr-2016 Abdomen/Pelvis without Cont Result: Comments: See Note; NOTES: [facility] Imaging Services [address] [facility] [place] [address] Verdana 4d Abdomen/Pelvis without Cont MR#: [id number] Acct: [id number] Name: GABE MAHARAJ S Rep #: [id number] : 1945 F 70 From: Stephen Walton DO PCP: Davian Mccray Status: REG ER Study: Abdomen/Pelvis without Cont Date of Exam: 04/25/16 Exam# [id number] Ordering Dr: Cristhian Mandujano MD STUDY: CT [...] Stephen Walton DO at 19:00 EDT Tel [phone], Service support [phone], CC: CRISTHIAN MANDUJANO MD; Davian Mccray Auto Rental Supervisor: Signed 12-Mar-2016 Emergency Department Summary Result: Comments: See Note; NOTES: [facility] Medical Records Department [address] [place] [address] Emergency Department Summary MR#: [id number] Acct: [id number] Name: MAR MAHARAJ Rep #: [id number] : 1945 70 From: Darien Warren MD [...] contusion. Darien Warren MD T: NTS JOB: [id number] 03/12/16 0306 <Electronically signed by Darien Warren MD> Date Darien Warren MD Cosigner Signature (If Indicated): Date CC: Davian Mccray Date Dictated: 2326 Date Transcribed: 03/10/162326 Auto Rental Supervisor: Signed 10-Mar-2016 Discharge Instruction Result: Comments: See Note; NOTES: [facility] Medical Records Department [address] [place] [address] Discharge Instruction 03/10/162006 MR#: [id number] Acct: [id number] Name: MAR MAHARAJ Rep #: [id number] : 1945 70 From: Darien Warren MD [...] problems, contact your doctor. Call [facility] ([phone]) or report to the closest Emergency Room. Call 911 if necessary. 03/10/162007 <Electronically signed by Darien Warren MD> Date Darien Warren MD Cosigner Signature (If Indicated): Date CC: Davian Mccray 10-Mar-2016 Hip 2-3 Views with Pelvis Result: Comments: See Note; NOTES: [facility] Imaging Services [address] [place] [address] Verdana 4d Hip 2-3 Views with Pelvis MR#: [id number] Acct: [id number] Name: MAR DEAN Rep #: [id number] : 1945 F 70 From: Robles Mejia PCP: Davian Mccray Status: [facility] ER Study: Hip 2-3 Views with Pelvis Date of Exam: 03/10/16 Exam# [id number] Ordering Dr: Carlos Eduardo Warren MD STUDY: [...] MejiaDO at 19:47 EDT , Service support [phone], RAD/Hip 2-3 Views with Pelvis IMPRESSION: Hip joint space narrowing. Stable degenerative changes left hip. No fracture or dislocation. 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 ABNORMAL 25-Jan-2016 Pelvis 1 or 2 Views Result: Comments: See Note; NOTES: [facility] Imaging Services [address] [place] [address] Verdana 4d Pelvis 1 or 2 Views MR#: [id number] Acct: [id number] Name: Radha MAHARAJ Rep #: [id number] : 1945 F 70 From: Doroteo Salgado MD PCP: Davian Mccray Status: REG CLI Study: Pelvis 1 or 2 Views Date of Exam: 01/25/16 Exam# [id number] Ordering Dr: Yadira Nina dma, MD STUDY: [...] at 16 :50 EDT , Service support [phone], RAD/Pelvis 1 or 2 Views IMPRESSION: Focus [...] at 16:50 EDT , Service suppor t [phone], CC: Davian Mccray; Gemma Nina MD Auto Rental Supervisor: Signed 19-Nov-2015 Vert Fx Asess/Lat Bone Den(H) Result: Comments: See Note; NOTES: [facility] Imaging Services [address] [place] [address] Verdana 4d Vert Fx Asess/Lat Bone Den(H) MR#: [id number] Acct: [id number] Luciano e: MAR MAHARAJ Rep #: [id number] : 1945 F 70 From: Florian Valenzuela MD PCP: Davian Mccray Status: REG CLI Study: Vert Fx Asess/Lat Bone Den(H) Date of Exam: 11/19/15 Exam# [id number] Chucho ering Dr: Davian Mccray STUDY: DUAL [...] Florian Valenzuela MD at 8:52 EDT Tel [phone], Service support [phone], CC: Davian Mccray Auto Rental Supervisor: Signed 19-Nov-2015 Bilat Scrn Digital AND CAD Result: Comments: See Note; NOTES: [facility] Imaging Services [address] [place] [address] Verdana 4d Bilat Scrn Digital AND CAD MR#: [id number] Acct: [id number] Name: MAR MAHARAJ Rep #: [id number] : 1945 F 70 From: Florian Valenzuela MD PCP: Davian Mccray Status: REG CLI Study: Bilat Scrn Digital AND CAD Date of Exam: 11/19/15 Exam# [id number] Ordering Dr: Davian Mccray MAMMOGRAPHY - BILATERAL [...] Florian Valenzuela MD at 10:06 EDT Tel [phone], Service support [phone], CC: Davian Mccray Auto Rental Supervisor: Signed 19-Nov-2015 Bilat Scrn Digital AND CAD Result: Comments: See Note; NOTES: [facility] Imaging Services [address] [place] [address] Verdana 4d Bilat Scrn Digital AND CAD MR#: [id number] Acct: [id number] Name: MAR MAHARAJ Rep #: [id number] : 1945 F 70 From: Florian Valenzuela MD PCP: Davian Mccray Status: REG CLI Study: Bilat Scrn Digital AND CAD Date of Exam: 11/19/15 Exam# [id number] Ordering Dr: Davian Mccray MAMMOGRAPHY - BILATERAL [...] Florian Valenzuela MD at 10:06 EDT Tel [phone], Service support [phone], CC: Davian Mccray Auto Rental Supervisor: Signed 19-Nov-2015 Dexa Bone Density Study (HP) Result: Comments: See Note; NOTES: [facility] Imaging Services [address] [place] [address] Verdana 4d Dexa Bone Density Study () MR#: [id number] Acct: [id number] Name : MAR MAHARAJ Rep #: [id number] : 1945 F 70 From: Florian Valenzuela MD PCP: Davian Mccray Status: [facility] Study: Dexa Bone Density Study () Date of Exam: 11/19/15 Exam# [id number] Order ing Dr: Davian Mccray STUDY: DUAL [...] Florian Valenzuela MD at 12:53 EDT Tel [phone], Service support [phone], F ax [phone] CC: Davian Mccray Auto Rental Supervisor: Signed 19-Nov-2015 Thyroid Result: Comments: See Note; NOTES: [facility] Imaging Services [address] [place] [address] Verdana 4d Thyroid MR#: [id number] Acct: [id number] Name: MAR MAHARAJ Rep #: [id number] : 1945 F 70 From: Stephen Walton DO PCP: Davian Mccray Status: REG CLI Study: Thyroid Date of Exam: 11/19/15 Exam# [id number] Ordering Dr: Davian Mccray STUDY: THYROID ULTRASOUN [...] Stephen Walton DO at 16:48 EDT Tel [phone], Service support [phone], CC: Davian Mccray Auto Rental Supervisor: Signed 17-Dec-2014 Cerv Spine 2 or 3 Views Result: Comments: See Note; NOTES: [facility] Imaging Services [address] [place] [address] Radiology Report MR#: [id number] Acct: [id number] Name: MAR MAHARAJ Rep #: [id number] : 1945 F 69 From: Vitaly Turner MD PCP: Libby Mai DO Status: REG CLI Study: Cerv Spine 2 or 3 Views Date of Exam: 12/17/14 Exam# [id number] Ordering Dr: De Yepez STUDY: X-RAY - [...] at 11:32 EDT Tel , Service support [phone], 0045 RAD/Cerv Spine 2 or 3 Views IMPRESSION: Status post anterior fusion from C3-C6, with 3 mm extrusion of the C6 screw. Loss of the normal lordosis. No signs of instability. Electronically Signed: Vitaly Turner MD, FACR at 11:32 EDT , Service support [phone], CC: DE YEPEZ; Libby Mai DO Auto Rental Supervisor: Signed 17-Dec-2014 Spine Cervical (Routine) Result: Comments: See Note; NOTES: [facility] Imaging Services [address] [place] [address] MRI Report MR#: [id number] Acct: [id number] Name: MAR MAHARAJ Rep #: [id number] : 1945 F 69 From: Vitaly Turner MD PCP: Libby Mai DO Status: REG CLI Study: Spine Cervical (Routine) Date of Exam: 12/17/14 Exam# [id number] Ordering Dr: De Yepez STUDY: MRI CERVIC [...] FACR at 11:15 EDT , Service support [phone], CC: DE YEPEZ; Libby Mai DO Auto Rental Supervisor: Signed 15-Dec-2014 Thyroid Result: Comments: See Note; NOTES: [facility] Imaging Services [address] [place] [address] Ultrasound Report MR#: [id number] Acct: [id number] Name: MAR MAHARAJ Rep #: [id number] : 1945 F 69 From: Stephen Walton DO PCP: Libby Mai DO Status: REG CLI Study: Thyroid Date of Exam: 12/15/14 Exam# [id number] Ordering Dr: Lisa Garcia MD STUDY: THYROID [...] Stephen Walton DO at 13:38 EDT Tel [phone], Service support [phone], CC: Libby Mai DO; Lisa Garcia MD Auto Rental Supervisor: Signed 17-Nov-2014 Bilat Scrn Digital AND CAD Result: Comments: See Note; NOTES: [facility] Imaging Services [address] [facility] [place] [address] Breast Imaging Report MR#: [id number] Acct: [id number] Name: MAR MAHARAJ Rep #: [id number] : 1945 F 69 From: Alfa Bettencourt MD PCP: Libby Mai DO Status: REG CLI Study: Bilat Scrn Digital AND CAD Date of Exam: 11/17/14 Exam# [id number] Ordering Dr: Libby Mai DO MAMMOGR APHY [...] at 12:06 EDT Tel , Service support [phone], CC: Libby Mai DO Auto Rental Supervisor: Signed 17-Nov-2014 Chest without Contrast Result: Comments: See Note; NOTES: [facility] Imaging Services [address] [place] [address] CAT Scan Report MR#: [id number] Acct: [id number] Name: MAR MAHARAJ Rep #: [id number] : 1945 F 69 From: Alfa Bettencourt MD PCP: Libby Mai DO Status: REG CLI Study: Chest without Contrast Date of Exam: 11/17/14 Exam# [id number] Ordering Dr: Libby Mai DO STUDY: CT [...] at 10:21 EDT Tel , Service support [phone], CC: Libby Mai DO Auto Rental Supervisor: Signed 23-Sep-2014 Brain/Head without Contrast Result: Comments: See Note; NOTES: [facility] Imaging Services [address] [place] [address] CAT Scan Report MR#: [id number] Acct: [id number] Name: MAR MAHARAJ Rep #: [id number] : 1945 F 69 From: Parminder Rashid MD PCP: Libby Mai DO Status: REG ER Study: Brain/Head without Contrast Date of Exam: 09/23/14 Exam# [id number] Ordering Dr: Rachel Avina MD STUDY: CT [...] MD at 21:19 EST , Service support [phone], CC: Libby Mai DO; Rachel Avina MD Auto Rental Supervisor: Signed 23-Sep-2014 Spine Cervical without Contras Result: Comments: See Note; NOTES: [facility] Imaging Services [address] [facility] [place] [address] CAT Scan Report MR#: [id number] Acct: [id number] Name: MAR MAHARAJ Rep #: [id number] : 1945 F 69 From: Parminder Rashid MD PCP: Libby Mai DO Status: REG ER Study: Spine Cervical without Contras Date of Exam: 09/23/14 Exam# [id number] Ordering Dr: Rachel Avina MD LORENA DY: [...] MD at 21:25 EST , Service support [phone], CC: Libby Mai DO; Rachel Avina MD Auto Rental Supervisor: Signed 21-Aug-2014 Discharge Instruction Result: Comments: See Note; NOTES: [facility] Medical Records Department [address] [place] [address] Instructions for Home/Discharge Instructions 08/21/14 1712 MR#: [id number] Acc t: [id number] Name: MAR MAHARAJ Rep #: [id number] : 1945 69 From: Galo Antonio PA-C [...] needed. Additional Instructions: F/U APPT S PER [facility] POST-OP INSTRUCTIONS F/U WITH GLENN RO 09/03/14 9:15 AM PHYSICAL THERAPY APPT WITH CADE @ [facility] 08/25/14 @ 9:00 AM, WILL HAVE [...] Please Follow Up With: Glenn Ro 08/21/14 5066 <Electronically signed by Galo Antonio PA-C> Date ___ Galo Antonio PA-C CC: Libby Mai DO 19-Aug-2014 Knee 1 or 2 Views Result: Comments: See Note; NOTES: [facility] Imaging Services [address] [place] [address] Radiology Report MR#: [id number] Acct: [id number] Name: MAR MAHARAJ Rep #: [id number] : 1945 F 69 From: Bakari Kenny MD PCP: Libby Mai DO Status: ADM IN Study: Knee 1 or 2 Views Date of Exam: 08/19/14 Exam# [id number] Ordering Dr: Darien Avina MD STUDY: X-RAY [...] MD at 16:29 EST , Service support [phone], CC: Libby Mai DO; Darien Avina MD Auto Rental Supervisor: Signed 12-Aug-2014 History and Physical Exam Result: Comments: See Note; NOTES: [facility] Medical Records Department [address] [place] [address] History and Physical 08/11/14 1334 MR#: [id number] Acct: [id number] Name: MAR MAHARAJ Rep #: [id number] : 1945 69 From: Glenn Ro PCP: Libby Mai DO Status: PRE IN Location: [facility] DATE OF SERVICE: 08/19/2014 PRIMARY CARE PROVIDER: [...] b.i.d. REVIEW OF SYSTEMS: Documented in the [facility] medical history sheet. Please refer to [...] of right knee dated May 30, 2014, [facility], weightbearing, AP, tunnel, [...] consent form. YADIRA Narvaez T: RUFUS JOB: [id number] 08/12/14 0740 <Electronically signed by Glenn Ro > Date: Time: Glenn Ro CC: Glenn Mai DO Date Dictated: 08/11/141333 Date Transcribed: 08/11/141333 Auto Rental Supervisor: Signed ____ I have re-examined the patient. There a re no clinical changes since date of exam. ____ See Progress Notes for Changes ____ Dictated on Admission Date: Time: Signature: 23-May-2014 Hip min 2 Views Result: Comments: See Note; NOTES: [facility] Imaging Services [address] [place] [address] Radiology Report MR#: [id number] Acct: [id number] Name: MAR MAHARAJ Rep #: [id number] : 1945 F 68 From: Florian Valenzuela MD PCP: Libby Mai DO Status: REG CLI Study: Hip min 2 Views Date of Exam: 05/23/14 Exam# [id number] Ordering Dr: Libby Mai DO STUDY: X-RAY [...] Florian Valenzuela MD at 9:41 EDT Tel [phone], Service support [phone], CC: Libby Mai DO Auto Rental Supervisor: Signed 23-May-2014 Knee 4 or More Views Result: Comments: See Note; NOTES: [facility] Imaging Services [address] [place] [address] Radiology Report MR#: [id number] Acct: [id number] Name: MAR MAHARAJ Rep #: [id number] : 1945 F 68 From: Florian Valenzuela MD PCP: Libby Mai DO Status: REG CLI Study: Knee 4 or More Views Date of Exam: 05/23/14 Exam# [id number] Ordering Dr: Libby Mai DO STUDY: X- [...] Florian Valenzuela MD at 9:42 EDT Tel [phone], Service support [phone], CC: Libby Mai DO Auto Rental Supervisor: Signed 02-May-2014 Chest without Contrast Result: Comments: See Note; NOTES: [facility] Imaging Services [address] [place] [address] CAT Scan Report MR#: [id number] Acct: [id number] Name: MAR MAHARAJ Rep #: [id number] : 1945 F 68 From: Cristhian pSears MD PCP: Libby Mai DO Status: REG CLI Study: Chest without Contrast Date of Exam: 05/02/14 Exam# [id number] Ordering Dr: Libby Mai DO STUDY: CT [...] mass. Basilar atelectasis or scarring. Electronically Signed: rCisthian Spears MD at 15:32 EDT Tel , Service support [phone], CC: Libby Mai DO Auto Rental Supervisor: Signed 02-May-2014 Thyroid Result: Comments: See Note; NOTES: [facility] Imaging Services [address] [place] [address] Ultrasound Report MR#: [id number] Acct: [id number] Name: MAR MAHARAJ Rep #: [id number] : 1945 F 68 From: Stephen Walton DO PCP: Libby Mai DO Status: REG CLI Study: Thyroid Date of Exam: 05/02/14 Exam# [id number] Ordering Dr: Libby Mai DO STUDY: THYROID [...] Stephen Walton DO at 19:17 EDT Tel [phone], Service support [phone], CC: Libby Mai DO Auto Rental Supervisor: Signed 27-Feb-2014 L/S Spine Min 4 Views Result: Comments: See Note; NOTES: [facility] Imaging Services [address] [place] [address] Radiology Report MR#: [id number] Acct: [id number] Name: MAR MAHARAJ Rep #: [id number] : 1945 F 68 From: Florian Valenzuela MD PCP: Libby Mai DO Status: REG CLI Study: L/S Spine Min 4 Views Date of Exam: 02/27/14 Exam# [id number] Ordering Dr: De Yepez STUDY: X-R AY [...] Florian Valenzuela MD at 10:31 EDT Tel [phone], Service support [phone], RAD/L/S Spine Min 4 Views IMP RESSION: The patient is status post laminectomy and fusion at the L3-L4 and L4- L5 levels with bone graft and bone stimulator. Grade 2 anterolisthesis of L4 on L5. Electronically Signed: Florian khan MD at 10:31 EDT Tel [phone], Service support [phone], CC: DE YEPEZ; Libby aMi DO Auto Rental Supervisor: Signed 27-Feb-2014 Spine Lumbar (Routine) Result: Comments: See Note; NOTES: [facility] Imaging Services [address] [place] [address] MRI Report MR#: [id number] Acct: [id number] Name: MAR MAHARAJ Rep #: [id number] : 1945 F 68 From: Angus Arreola PCP: Libby Mai DO Status: REG CLI Study: Spine Lumbar (Routine) Date of Exam: 02/27/14 Exam# [id number] Ordering Dr: De Yepez STUDY: MRI LUMBAR [...] MD at 7:48 EDT , Service support [phone], CC: DE Mai DO Auto Rental Supervisor: Signed 10-Feb-2014 Cerv Spine 2 or 3 Views Result: Comments: See Note; NOTES: [facility] Imaging Services [address] [facility] [place] [address] Radiology Report MR#: [id number] Acct: [id number] Name: MAR MAHARAJ Rep #: [id number] : 1945 F 68 From: Florian Valenzuela MD PCP: Libby Mai DO Status: REG CLI Study: Cerv Spine 2 or 3 Views Date of Exam: 02/10/14 Exam# [id number] Ordering Dr: De Yepez STUDY: X -RAY [...] Florian Valenzuela MD at 15:54 EDT Tel [phone], Service support [phone], RAD/Cerv Spine 2 or 3 Views IMPRESSION: Status post anterior fu tamika at the C3-C4, C4-C5 and C5-C6 levels. No abnormal movement occurs between the vertebral segments. Electronically Signed: Florian Valenzuela MD at 15:54 EDT Tel [phone], Service support [phone], CC: DE YEPEZ; Libby Mai DO Auto Rental Supervisor: Signed 13-Jan-2014 Echocardiogram Complete Result: Comments: See Note; NOTES: [facility] Cardiovascular Services [address] [place] [address] Echo Complete 01/10/14 1155 MR#: [id number] Acct: [id number] Name: LESLY MAHARAJ Rep #: [id number] : 1945 68 From: Sergio Lawler MD Attending Dr: Nuris ARAGON,Sergio Status: REG CLI Ordering Dr: Sergio Lawler MD Date: 01/10/14 Location: 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 at [phone]. If this radiologist is unavailable, you will be directed to another radiologist to assist. If you are a patient with a question regarding this report, please contact your referring physician directly. Professional Interpretation Provided By: poLight, Phone , These documents contain legally protected [...] of these documents. CC: Hari Mai DO Auto Rental Supervisor: Signed 20-Jun-2013 Dexa Bone Density Study (HP) Result: Comments: See Note; NOTES: [facility] Imaging Services [address] [place] [address] Bone Density Report MR#: [id number] Acct: [id number] Name: MAR MAHARAJ Rep #: [id number] : 1945 F 67 From: Florian Valenzuela MD PCP: Status: [facility] Study: Dexa Bone Density Study (HP) Date of Exam: 06/20/13 Exam# [id number] Ordering Dr: Libby Mai DO STUDY: DUAL [...] angel luis mbar spine. On the lateral mold tooler view, there is evidence of loss of [...] June 20, 2013 at 10:14:39 AM EDT [phone] Electronically Signed GP/GP If you are the referring physician and would like to consult with the radiologist who provided this interpretation, please contact Florian Valenzuela M.D. at [phone]. If this radiologist is unavailable, you will be directed to another radiologist to assist. If you are a patient with a question regarding this report, plea se contact your referring physician directly. Professional Interpretation Provided By: poLight, Phone , These documents contain legally protected [...] of these documents. CC: Libby Mai DO Auto Rental Supervisor: Signed 06-Jun-2013 Chest without Contrast Result: Comments: See Note; NOTES: [facility] Imaging Services [address] [place] [address] CAT Scan Report MR#: [id number] Acct: [id number] Name: MAR MAHARAJ Rep #: [id number] : 1945 F 67 From: Florian Valenzuela MD PCP: Status: REG CLI Study: Chest without Contrast Date of Exam: 06/06/13 Exam# [id number] Ordering Dr: Libby Mai DO STUDY: CT [...] June 06, 2013 at 10:07:38 AM EDT [phone] Electronically Signed GP/GP If you are the referring physician and would like to consult with the radiologist who provided this interpretation, please contact Florian Valenzuela M.D. at [phone]. If this radiologist is unavailable, you will be directed to another radiologist to assist. If you are a patient with a question regarding this report, please contact your referring physician directly. Professional Interpretation Provided By: poLight, Phone , These documents contain legally protected [...] of these documents. CC: Libby Mai DO Auto Rental Supervisor: Signed 06-Jun-2013 Chest without Contrast Result: Comments: See Note; NOTES: [facility] Imaging Services [address] [place] [address] CAT Scan Report MR#: [id number] Acct: [id number] Name: MAR MAHARAJ Rep #: [id number] : 1945 F 67 From: Florian Valenzuela MD PCP: Status: REG CLI Study: Chest without Contrast Date of Exam: 06/06/13 Exam# [id number] Ordering Dr: Libby Mai DO STUDY: CT [...] June 06, 2013 at 10:07:38 AM EDT [phone] Electronically Signed GP/GP If you are the referring physician and would like to consult with the radiologist who provided this interpretation, please contact Florian Valenzuela M.D. at [phone]. If this radiologist is unavailable, you will be directed to another radiologist to assist. If you are a patient with a question regarding this report, please contact your referring physician directly. Professional Interpretation Provided By: poLight, Phone , These documents contain legally protected [...] of these documents. CC: Libby Mai DO Auto Rental Supervisor: Signed Immunization Name Dates Details Pneumococcal (2 years and up) on: 2016 Comments: [facility] Family History Unknown Family Member Name Dates Details Father Comments: COPD, Smoker - Status: Active Mother Comments: Breast CA, DM, HTN, Lung CA - Status: Active Social History Name Dates Details Alcohol Use Comments: Occasional alcohol use Status: Active Caffeine Use Comments: 2 QD Status: Active Current Work/Study Status Comments: Part-time, [employer] Status: Active Exercise History Comments: Light Status: Active Living Situation Comments: Lives alone Status: Active No Drug Use Status: Active Non Smoker/No Tobacco Use Comments: 04/20/11 Status: Active 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, [address] GAP 11 (Normal) Range: 5-15 CO2 28.0 [...] A.D.A. criteria.Please note revised GLUCOSE reference range ysjjvjfmh96/02/2018. :32 HgA1C , Office (47364) HgA1C , Office 6.3 % (Normal) Range: 4.6 - 7.1 :32 Blood Glucose , Office (45709) Blood Glucose , Office 133 (Normal) :16 Miscellaneous Lab Procedure Comments: Comments: [id number]; URINE TOX; RUN LOWEST TEST IN LABCOTest(s) Ordered: [id number]; URINE TOX; RUN LOWEST TEST IN [facility] [address]xgbd[address] [place], [place], [id number] [facility] Comments: [id number] 6+OXYCODONE-BUND (ng/mL)DRUG RESULT SCREEN CUTOFF____ Amphetamines,Urine Negat LAB (Normal) ananth ng/mL 1000Amphetamine test includes Amphetamine and Methamphetamine.Barbiturates Negative ng/mL 200Benzodiazepines Negative ng/mL 200Cannabinoid TEST Negative ng/mL 20Cocaine (Metab) Negative ng/mL 300Opiates Negative ng/mL 300 Opiates test includes Codeine, Morphine, Hydromorphone, [place] codone.Oxycodone/Oxymorphone,Urine Negative ng/mL 300 Test includes Oxydodone and Oxymorphone. TESTING PERFORMED AT [facility]. ORIGINAL REPORT ON FILE IN LAB CONTAINS ADDITIONAL TEST SITE INFORMATION. :16 Urine Drug Screen (VISTA) Comments: Comments: [id number]; URINE TOX; RUN LOWEST TEST IN LABCORPList of Drugs Taken or Suspected? [facility] [address] [place], [address] THC NEGATIVE (Normal) PCP NEGATIVE [...] TESTING MUST BE ORDERED SEPARATELY. USE TESTMNEMONIC: [facility] :28 Microscopic Examination Comments: PATIENT WAS FASTINGPERFORMED BY: LabCoSt. Francis Medical CenterLkjroe8284 [facility] [id number] Bacteria Few (Normal) Mucus Threads Present (Normal) Epithelial Cells (non renal) 0-10 {/hpf} (Normal) Range: 0 - 10 RBC 0-2 {/hpf} (Normal) Range: 0 - 2 WBC 0-5 {/hpf} (Normal) Range: 0 - 5 :52 Basic Metabolic Profile (BMP) Comments: Osyrigptgi027[address] [place], [place], [address] GAP 10 (Normal) Range: 5-15 CO2 27.0 [...] A.D.A. criteria.Please note revised GLUCOSE reference range aoszqeckb19/02/2018. 07-May-20188:52 CBC W/Diff, Automated Comments: Whlacwbtzo[address] [place], [place], [address] Absolute Lymph 1.75 {X10_3/ul} (Normal) Range: 0.83-4.51 [...] Range: 4.4-11.0 :05 CBC W/Diff, Automated Comments: Gtpztjklah25[address] [place], [place], [address] Absolute Lymph 1.82 {X10_3/ul} (Normal) Range: 0.83-4.51 [...] Range: 4.4-11.0 :05 Comprehensive Metabolic Profil Comments: Dwgbjyuoys[address] [place], [address] GAP 12 (Normal) Range: 5-15 CO2 28.0 [...] criteria.Please note revised GLUCOSE reference range /02/2018. 02-Seh-72285:28 CALCIFEDIOL (68521) Comments: PATIENT WAS FASTINGPERFORMED BY: LabCoSt. Francis Medical CenterMsltde3808 [facility] [id number] Vitamin D, 25-Hydroxy 45.7 ng/mL (Normal) Range: 30.0-100.0 Comments: Vitamin D deficiency has been defined by the [place] of[place]icine and an Endocrine Society practice guideline as alevel of serum 25-OH vitamin D less than 20 ng/mL (1,2).The Endocrine Society went on to further define vitamin Dinsufficiency as a level between 21 and 29 ng/mL (2).1. IOM ([place] [employer]). 2010. Dietary reference intakes for calcium and D. [place]: The National Academies Press.2. Delma MF, Mckenna ABDALLA, Dane MACKENZIE, et al. Evaluation, treatment, and prevention of vitamin D deficiency: an Endocrine Society clinical practice guideline. JCEM. 2010; 96(7):1911-30. :28 VITAMIN B-12 (CYANOCOBALAMIN) Comments: PATIENT WAS FASTINGPERFORMED BY: [employer] [facility] [place] [id number] (84239) Vitamin B12 507 pg/mL (Normal) Range: 232-1245 :28 TSH (13888) Comments: PATIENT WAS FASTINGPERFORMED BY: [employer] Rgtchp4527 [address] [place] [id number] TSH 0.816 {uIU/mL} (Normal) Range: 0.450-4.500 :28 URINALYSIS, W/ MICRO (13547) Comments: PATIENT WAS FASTINGPERFORMED BY: MemBlaze6[address] [place] [id number] Microscopic Examination See below: (Normal) Comments: Microscopic was indicated and was performed. Nitrite, Urine Negative (Normal) Urobilinogen,Semi-Qn 0.2 mg/dL (Normal) Range: 0.2-1.0 Bilirubin Negative (Normal) Occult Blood Negative (Normal) Ketones Negative (Normal) Glucose Negative (Normal) Protein Negative (Normal) WBC Esterase 1+ (Abnormal) Appearance Clear (Normal) Urine-Color Yellow (Normal) pH 7.0 (Normal) Range: 5.0-7.5 Specific [place] 1.017 (Normal) Range: 1.005-1.030 :28 MICROALBUMIN: CREATININE RATIO Comments: PATIENT WAS FASTINGPERFORMED BY: [employer] Dcmmrm0789 [facility] [id number] (83157) AND (09935) Alb/Creat Ratio 9.9 {mg/g_creat} (Normal) Range: 0.0-30.0 Albumin, Urine 7.9 ug/mL (Normal) Creatinine, Urine 79.8 mg/dL (Normal) :28 METABOLIC PANEL, COMPREHENSIVE Comments: PATIENT WAS FASTINGPERFORMED BY: [employer]Power Electronics6370 [facility] [id number] (30957) ALT (SGPT) 13 [iU]/L (Normal) Range: 0-32 [...] 8-27 Glucose 142 mg/dL (Abnormal) Range: 65-99 76-Nya-84101:28 LIPID PANEL (53547) Comments: PATIENT WAS FASTINGPERFORMED BY: LabCoGuadalupe County HospitalDwsput7166 [facility] [id number] LDL/HDL Ratio 3.2 {ratio} (Normal) Range: 0.0-3.2 Comments: LDL/HDL Ratio Men Women 1/2 Avg.Risk 1.0 1.5 Av g.Risk 3.6 3.2 2X Avg.Risk 6.2 5.0 3X Avg.Risk 8.0 6.1 LDL Cholesterol Calc 143 mg/dL (Abnormal) Range: 0-99 VLDL Cholesterol Peg 29 mg/dL (Normal) Range: 5-40 HDL Cholesterol 45 mg/dL (Normal) Triglycerides 143 mg/dL (Normal) Range: 0-149 Cholesterol, Total 217 mg/dL (Abnormal) Range: 100-199 70-Mts-44926:28 CBC W/AUTO DIFF WBC (74083) Comments: PATIENT WAS FASTINGPERFORMED BY: LabCoSt. Francis Medical CenterXjtylx2921 [facility] [id number] Immature Grans (Abs) 0.0 {x10E3/uL} (Normal) Range: [...] (Normal) Range: 3.4-10.8 :43 HgA1C , Office (90607) HgA1C , Office 6.3 % (Normal) Range: 4.6 - 7.1 :43 Blood Glucose , Office (85477) Blood Glucose , Office 105 (Normal) :55 MAGNESIUM (03843) Comments: PATIENT NOT FASTINGPERFORMED BY: [facility] Yvwojg9410 [facility] [id number] Magnesium 1.6 mg/dL (Normal) Range: 1.6-2.3 :55 POTASSIUM SERUM (32259) Comments: PATIENT NOT FASTINGPERFORMED BY: [facility] Mqkpfr9973 [facility] [id number]; ov 02/19 Potassium 4.8 mmol/L (Normal) Range: 3.5-5.2 :59 CBC W/Diff, Automated Comments: Fqvphjphqk60[address] [place], [place], [address] Absolute Lymph 2.55 {X10_3/ul} (Normal) Range: 0.83-4.51 [...] Range: 4.4-11.0 07-Dec-20178:59 Comprehensive Metabolic Profil Comments: Cmfveqewih9[address] [place], [address] GAP 8 (Normal) Range: 5-15 CO2 32.0 mmol/L (Normal) Range: 21.0-32.0 CL 100 mmol/L (Normal) Range: 98-107 K 3.4 mmol/L (Abnormal) Range: 3.5-5.1 NA 140 mmol/L (Normal) Range: 136-145 T BILI 0.40 mg/dL (Normal) Range: 0.20-1.00 ALT 21 U/L (Normal) Range: 13-56 Comments: Please note revised ALT reference range puuvgvvaq95/28/2018. ALK P 76 U/L (Normal) Range: 45-117 [...] A.D.A. criteria.Please note revised GLUCOSE reference range drjzaowjg14/02/2018. 9-Qje-317414:40 Microscopic Examination Comments: PATIENT WAS FASTINGPERFORMED BY: [employer] [address] [id number] BY: [employer] [facility] [place] [id number] Bacteria Few (Normal) Epithelial Cells (non renal) 0-10 {/hpf} (Normal) Range: 0 - 10 RBC None seen {/hpf} (Normal) Range: 0 - 2 WBC 0-5 {/hpf} (Normal) Range: 0 - 5 0-Xtv-440625:40 VITAMIN B-12 (CYANOCOBALAMIN) Comments: PATIENT WAS FASTINGPERFORMED BY: [employer] [address] [id number] BY: [employer] [facility] [place] [id number] (78528) Vitamin B12 470 pg/mL (Normal) Range: 232-1245 9-Ksi-417050:40 CALCIFIDIOL (99042) VIT D Comments: PATIENT WAS FASTINGPERFORMED BY: [employer] [address] [id number] BY: Midatechlin6[address] [facility] [id number] 25 Vitamin D, 25-Hydroxy 36.1 ng/mL (Normal) Range: 30.0-100.0 Comments: Vitamin D deficiency has been defined by the [place] of[place]icine and an Endocrine Society practice guideline as alevel of serum 25-OH vitamin D less than 20 ng/mL (1,2).The Endocrine Society went on to further define vitamin Dinsufficiency as a level between 21 and 29 ng/mL (2).1. IOM ([place]). 2010. Dietary reference intakes for calcium and D. [place]: The National Academies Press.2. Delma MF, Mckenna ABDALLA, Dane MACKENZIE, et al. Evaluation, treatment, and prevention of vitamin D deficiency: an Endocrine Society clinical practice guideline. JCEM. 2010; 96(7):1911-30. 5-Aqj-206080:40 LIPOPROTEIN, BLD, BY NMR Comments: PATIENT WAS FASTINGPERFORMED BY: BN [facility] Buksdrfxbh5991 [facility] [id number] BY: CB [facility] Byghxx2298 [facility] [id number] (40490) LP-IR Score 80 (Abnormal) Comments: INSULIN RESISTANCE MARKER <--Insulin Sensitive Insulin Resistant--> Percentile in Reference PopulationInsulin Resistance ScoreLP-IR Score Low 25th 50th 75th High <27 27 45 63 >63LP-IR Score is inaccurate if patient is non-fasting. .The LP-IR score is a laboratory developed i [facility] that has beenassociated with insulin resistance and [...] were developed and their performance characteristicsdetermined by [employer]. These assays have not been cleared by [...] 1600 - 2000 Very High > 2000 9-Erb-364923:40 TSH (35783) Comments: PATIENT WAS FASTINGPERFORMED BY: [employer]agne [address] [place] [address] [id number] BY: [employer] Suifrp6335 [facility] [id number] TSH 1.780 {uIU/mL} (Normal) Range: 0.450-4.500 7-Oel-260418:40 URINALYSIS, W/ MICRO Comments: PATIENT WAS FASTINGPERFORMED BY: [employer] [id number] BY: [employer] Udnszi0572 [facility] [id number] (50643) Microscopic Examination See below: (Normal) Comments: Microscopic was indicated and was performed. Microscopic Examination MICRON (Normal) Comments: Microscopic follows if indicated. Nitrite, Urine Negative (Normal) Urobilinogen,Semi-Qn 0.2 mg/dL (Normal) Range: 0.2-1.0 Bilirubin Negative (Normal) Occult Blood Negative (Normal) Ketones Negative (Normal) Glucose Negative (Normal) Protein Negative (Normal) WBC Esterase Negative (Normal) Appearance Clear (Normal) Urine-Color Yellow (Normal) pH 7.5 (Normal) Range: 5.0-7.5 Specific [place] 1.016 (Normal) Range: 1.005-1.030 5-Blk-517072:40 MICROALBUMIN: CREATININE Comments: PATIENT WAS FASTINGPERFORMED BY: [employer] [id number] BY: UpEnergyAnthony [place] 0545470 [facility] [id number] RATIO (23060) AND (82297) Alb/Creat Ratio 8.6 {mg/g_creat} (Normal) Range: 0.0-30.0 Albumin, Urine 4.7 ug/mL (Normal) Creatinine, Urine 54.7 mg/dL (Normal) 5-Qcc-779859:40 METABOLIC PANEL, Comments: PATIENT WAS FASTINGPERFORMED BY: [employer] [id number] BY: UpEnergySt. Francis Medical CenterZyzfjc3898 [facility] [id number] COMPREHENSIVE (82878) ALT (SGPT) 17 [iU]/L (Normal) Range: 0-32 [...] 8-27 Glucose 99 mg/dL (Normal) Range: 65-99 3-Ifv-464145:40 CBC W/AUTO DIFF WBC Comments: PATIENT WAS FASTINGPERFORMED BY: BN [facility] Ymzupxurmf1399 [facility] [id number] BY: CB [facility] Optgbc2424 [facility] [id number]; ov tomrrow 12/07 (88004) Immature Grans (Abs) 0.0 {x10E3/uL} (Normal) Range: [...] (Normal) Range: 3.4-10.8 :26 HgA1C , Office (78399) HgA1C , Office 6.7 % (Normal) Range: 4.6 - 7.1 :26 Blood Glucose , Office (67491) Blood Glucose , Office 141 (Normal) 9-Cpp-778605:10 CBC W/Diff, Automated Comments: Sorelivzey[address] [place], [address] Absolute Lymph 2.70 {X10_3/ul} (Normal) Range: 0.83-4.51 [...] 4.2-5.4 WBC 7.1 K/mm3 (Normal) Range: 4.4-11.0 3-Uve-898708:10 Comprehensive Metabolic Profil Comments: Datscfofbk77[address] [place], [place], [address] GAP 10 (Normal) Range: 5-15 CO2 28.0 mmol/L (Normal) Range: 21.0-32.0 CL 100 mmol/L (Normal) Range: 98-107 K 3.8 mmol/L (Normal) Range: 3.5-5.1 NA 138 mmol/L (Normal) Range: 136-145 T BILI 0.40 mg/dL (Normal) Range: 0.20-1.00 ALT 16 U/L (Normal) Range: 13-56 Comments: Please note revised ALT reference range whgsnsgne51/28/2018. ALK P 81 U/L (Normal) Range: 45-117 [...] 126 mg/dLsuggests DIABETES MELLITUS per A.D.A. criteria. 0-Aoy-453733:10 CRP Comments: Ixpbcwuzch6[address] [place], [address] C-REACTIVE PROT 4.26 mg/L (Abnormal) Range: 0.0-3.0 Comments: C-Reactive Protein (CRP) provides useful information for thediagnosis, therapy and monitoring of inflammatory processesand associated diseases. For the evaluation of Relative Riskfor Cardiovascular Dise ase, a High Sensitivity CRP (HSCRP)should be ordered. 7-Ube-040421:10 Erythrocyte Sed Rate Comments: [address]febfy[address] [place], [address] SED RATE 7 mm/h (Normal) Range: 0-30 07-Sep-20178:49 Rapid Flu (65299 x 2) Influenza A Ag Positive (Normal) Comments: A, no flu shot 1-Qje-962619:31 Rapid Strep Test, Office (55142) Rapid Strep Test, Office Negative (Normal) :51 THROAT CULTURE (25529) Comments: PATIENT NOT FASTINGPERFORMED BY: [facility]B[place] [facility] HospitalTrivopFormerly [facility] [id number] Information: SRC:TH Result 1 RRF (Normal) Comments: Routine respiratory vicente Upper Respiratory Final report Culture (Normal) Lipase, Serum 11 U/L (Abnormal) Comments: PATIENT NOT FASTINGPERFORMED BY: Mem[facility]6370 [facility] [id number] :30 Range: 14-85 Written Authorization WAR (Normal) Comments: PATIENT NOT FASTINGPERFORMED BY: [employer] Mycwsj5528 [facility] [id number] :30 Comments: Written Authorization Received.Authorization received from original requistion [id number] by Ann Hartley :30 METABOLIC PANEL, COMPREHENSIVE Comments: stat; PATIENT NOT FASTINGPERFORMED BY: [employer] Bobeps8361 [facility] [id number] (47449) ALT (SGPT) 5 [iU]/L (Normal) Range: 0-32 [...] Glucose, Serum 99 mg/dL (Normal) Range: 65-99 7-Mnm-699925:30 CBC W/AUTO DIFF WBC (15274) Comments: stat; PATIENT NOT FASTINGPERFORMED BY: [facility] Ikjwjk5320 [facility] [id number] Immature Grans (Abs) 0.0 {x10E3/uL} (Normal) Range: [...] 3.77-5.28 WBC 7.3 {x10E3/uL} (Normal) Range: 3.4-10.8 0-Phh-692967:31 Rapid Flu (70824 x 2) Influenza A Ag Negative (Normal) 11-Hal-404498:28 HgA1C , Office (64745) HgA1C , Office 6.3 % (Normal) Range: 4.6 - 7.1 18-Foi-975257:28 Blood Glucose , Office (16198) Blood Glucose , Office 133 (Normal) 01-Ffg-682648:27 VITAMIN B-12 (CYANOCOBALAMIN) Comments: PATIENT NOT FASTINGPERFORMED BY: [employer] [facility] HospitalTrivopFormerly [facility] [id number] (42236) Vitamin B12 258 pg/mL (Normal) Range: 211-946 55-Ahu-178337:27 MAGNESIUM (02064) Comments: PATIENT NOT FASTINGPERFORMED BY: scanR Doyle 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 [place], [place], [id number] MUCUS, URINE 0 SEEN {/hpf} (Normal) BACTERIA [...] Yellow (Normal) :15 CBC W/Diff, Automated Comments: Ztuxpvfalp2331 [facility] Himanshu. [place], [place], [address] Absolute Lymph 1.41 {X10_3/ul} (Normal) Range: 0.83-4.51 [...] 4.2-5.4 WBC 7.7 K/mm3 (Normal) Range: 4.4-11.0 77-Dll-204749:15 Comprehensive Metabolic Profil Comments: Rmybrfnjku1533 [address]. [place], [place], [address] GAP 6 (Normal) Range: 5-15 CO2 33.0 [...] 7-18 GLU 101 mg/dL (Normal) Range: 70-110 08-Dzq-664486:09 CBC W/Diff, Automated Comments: Xdjrjxwzre4688 [place], [address] ; another doc Absolute Lymph 1.90 {X10_3/ul} [...] 4.2-5.4 WBC 6.6 K/mm3 (Normal) Range: 4.4-11.0 56-Qka-625490:09 Comprehensive Metabolic Profil Comments: Ktnxfddaqb2601 [address] [place], [place], [address] GAP 10 (Normal) Range: 5-15 CO2 25.0 [...] 126 mg/dLsuggests DIABETES MELLITUS per A.D.A. criteria. 67-Bun-403059:09 Lipase Comments: Vbclqxmdyr9426 [place], [address] LIPASE 42 U/L (Abnormal) Range: 73-393 7-Cas-676986:19 Metabolic Panel, Comprehensive Comments: PATIENT NOT FASTINGPERFORMED BY: [facility] Xptdrk7327 [address] [id number] (75996) ALT (SGPT) 11 [iU]/L (Normal) Range: 0-32 [...] Glucose, Serum 108 mg/dL (Abnormal) Range: 65-99 5-Ndr-120880:19 HGB A1C (82219) Comments: PATIENT NOT FASTINGPERFORMED BY: [facility] [id number] Hemoglobin A1c 5.9 % (Abnormal) Range: 4.8-5.6 Comments: . Pre-diabetes: 5.7 - 6.4 Diabetes: >6.4 Glycemic control for adults with diabetes: <7.0 :19 MAGNESIUM (19012) Comments: PATIENT NOT FASTINGPERFORMED BY: [place] [id number] [address] [id number] Magnesium, Serum 1.7 mg/dL (Normal) Range: 1.6-2.3 :19 CBC, Platelets & Auto Diff Comments: PATIENT NOT FASTINGPERFORMED BY: [facility]liumM[facility] [id number] (86908) Immature Grans (Abs) 0.0 {x10E3/uL} (Normal) Range: [...] 3.77-5.28 WBC 9.5 {x10E3/uL} (Normal) Range: 3.4-10.8 31-Cay-254273:41 Comprehensive Metabolic Profil Comments: REDRAW. PREVIOUS SPECIMEN REJECTED DUE TOHEMOLYSIS. 04/28/17 1[address] Uxuefqlwwc23[address] [place], [place], [address] GAP 6 (Normal) Range: 5-15 CO2 25.0 [...] 126 mg/dLsuggests DIABETES MELLITUS per A.D.A. criteria. 12-Csl-394137:05 Urinalysis, Complete Comments: Order Date: 04/28/17Has pt arrived? YHow was Urine Obtained? [facility] SPECIMENWUniversity [facility] Scvbhkasih7164 [address] [place], [place], [address] AMORPHOUS 1+ (Normal) MUCUS, URINE 0 SEEN [...] CLARITY Sl. Cloudy (Normal) COLOR Yellow (Normal) 22-Tvf-938649:00 CBC W/Diff, Automated Comments: Qpiqopchdk9515 [place], [address] Absolute Lymph 1.58 {X10_3/ul} (Normal) [...] 4.2-5.4 WBC 25.0 K/mm3 (Abnormal) Range: 4.4-11.0 93-Ypm-291629:00 Lactic Acid Comments: Yes/No query for Sepsis Lactate Rule [facility] Wmjbzmzamn5[address] [place], [address] LACTIC ACID 1.6 mmol/L (Normal) Range: 0.4-2.0 55-Wyq-863011:00 Partial Thromboplast Time Comments: Twengvflsh1802 [place], [address] PTT 22.4 s (Abnormal) Range: 24.1-36.2 41-Fxg-334386:00 Prothrombin Time w/INR Comments: Nivxzutqsx4285 [place], [address] INR 1.0 (Normal) PROTIME 12.8 s (Normal) Range: 11.7-14.9 08-Yhg-98905:50 Miscellaneous Lab Procedure Comments: Comments: [id number]; URINE TOX; RUN LOWEST TEST IN LABCORPTest(s) Ordered: [id number]; URINE TOX; RUN LOWEST TEST IN [facility] Kjlibyxsyg1511 [place], [id number] [facility] Comments: [id number] 6+OXYCODONE-BUND (ng/mL)DRUG RESULT SCREEN CUTOFF____ Amphetamines,Urine Negat LAB (Normal) ananth ng/mL 1000Amphetamine test includes Amphetamine and Methamphetamine.Barbiturates Negative ng/mL 200Benzodiazepines Negative ng/mL 200Cannabinoid TEST Negative ng/mL 20Cocaine (Metab) Negative ng/mL 300Opiates Positive ng/mL 300 Opiates test includes Codeine, Morphine, Hydromorphone, [place] codone.Please Note:Confirmation performed by Mass SpectrometryCodeine Negative 300Morphine Positive Morphine Confirm >3000 ng/mL 300Hydromor phone Negative 300Hydrocodone Negative 300Oxycodone/Oxymorphone,Urine Negative ng/mL 300 Test includes Oxydodone and Oxymorphone. TESTING PERFORMED AT [facility]. ORIGINAL REPORT ON FILE IN LAB CONTAINS ADDITIONAL TEST SITE INFORMATION. :50 Urine Drug Screen (VISTA) Comments: Comments: [id number]; URINE TOX; RUN LOWEST TEST IN LABCOList of Drugs Taken or Suspected? [facility] Gfhwwgiwtt9190 [address], [id number] THC NEGATIVE (Normal) PCP NEGATIVE (Normal) OPIATES [...] TESTING MUST BE ORDERED SEPARATELY. USE TESTMNEMONIC: [facility] :00 Basic Metabolic Profile (BMP) Comments: 'TROP' Serial specimen #1, #2, #3, or #4: 1 Xlgxmyyjbi12[address] [place], [place], [address] GAP 10 (Normal) Range: 5-15 CO2 28.0 [...] A.D.A. criteria. :00 CBC W/Diff, Automated Comments: Abhmhqsagx3793 [address] [place], [place], [address] ; another doc Absolute Lymph 1.20 {X10_3/ul} [...] 4.2-5.4 WBC 4.0 K/mm3 (Abnormal) Range: 4.4-11.0 08-Eej-89601:00 Lipase Comments: 'TROP' Serial specimen #1, #2, #3, or #4: [address] [place] [address] [place], [address] LIPASE 82 U/L (Normal) Range: 73-393 45-Qga-58266:00 Liver Profile Comments: 'TROP' Serial specimen #1, #2, #3, or #4: [address] [place] [address] Nonmfeklrd6225 [place], [address] D BILI 0.12 mg/dL (Normal) Range: 0.00-0.30 T BILI 0.50 mg/dL (Normal) Range: 0.20-1.00 ALT 13 U/L (Normal) Range: 12-78 ALK P 58 U/L (Normal) Range: 45-117 AST 6 U/L (Abnormal) Range: 15-37 GLOB 3.4 g/dL (Normal) Range: 2.3-3.5 ALB 3.7 g/dL (Normal) Range: 3.4-5.0 T PROT 7.1 g/dL (Normal) Range: 6.4-8.2 32-Dgp-88441:00 Troponin-I Comments: 'TROP' Serial specimen #1, #2, #3, or #4: 1 Bkukebxboq8005 [place], [address] TROPONIN-I < 0.02 ng/mL (Normal) Comments: TROPONIN-I EXPECTED VALUES <0.05 NEGATIVE 0.06 - 0.59 AT RISK OF DC > OR = 0.60 SUGGEST DC 69-Gzw-014691:01 Renal Profile Comments: Order Date: 01/17/17Order Info: [id number] - RENALOrder Info: [id number] - MGOrder Date: 01/17/17Order Info: [id number] - MG Hqcgtvmyys5951 [place], [phone] CO2 31.0 mmol/L (Normal) Range: 21.0-32.0 CL [...] 7-18 GLU 102 mg/dL (Normal) Range: 70-110 18-Vnr-393615:01 MAGNESIUM (97160) Comments: Order Date: 01/17/17Order Info: [id number] - RENALOrder Info: [id number] - MGOrder Date: 01/17/17Order Info: [id number] - MGWooSt. Charles Hospital Wjpikkwggk[address] [place], [phone] MG 1.5 mg/dL (Abnormal) Range: 1.8-2.4 Comments: Moderate Hemolysis, Result may be falsely increased. 41-Iyl-137635:25 CBC W/Diff, Automated Comments: Ggbwkkpftl[address] [place], [address] Absolute Lymph 1.62 {X10_3/ul} (Normal) Range: 0.83-4.51 [...] 4.2-5.4 WBC 10.3 K/mm3 (Normal) Range: 4.4-11.0 23-Fkh-795900:25 Comprehensive Metabolic Profil Comments: 'TROP' Serial specimen #1, #2, #3, or #4: [address] [place] [address] Qzpigakofj0957 [address] [place], [place], [address] GAP 10 (Normal) Range: 5-15 CO2 29.0 [...] <126 mg/dLsuggests IMPAIRED HOMEOSTASIS per A.D.A. criteria. 01-Ren-808249:25 Lipase Comments: 'TROP' Serial specimen #1, #2, #3, or #4: [address] [place] [address] Qhevgapdci9606 [address] [place], [place], [address] LIPASE 52 U/L (Abnormal) Range: 73-393 90-God-591533:25 Partial Thromboplast Time Comments: Hkxesfwhms5994 [address] [place], [place], [address] PTT 32.0 s (Normal) Range: 24.1-36.2 29-Yhj-960642:25 Prothrombin Time w/INR Comments: Abwmfplqqr5778 [address] [place], [place], [address] INR 1.0 (Normal) PROTIME 13.1 s (Normal) Range: 11.7-14.9 07-Jpk-866744:25 Troponin-I Comments: 'TROP' Serial specimen #1, #2, #3, or #4: [address] [place] [address] Bqzmqtxwlt9148 [address] [place], [place], [address] TROPONIN-I 0.93 ng/mL (Abnormal) Comments: Critical Result(s) Called INDRA Tyson at: 12:03:56012/19/2016 by: JAYDA CRAIG TROPONIN-I EXPECTED VALUES <0.05 NEGATIVE 0.06 - 0.59 AT RISK OF DC > OR = 0.60 SUGGEST DC 42-Qtc-279579:40 Urinalysis, Complete Comments: How was Urine Obtained? SUPERVISOR BAKERY SANITATION TO [facility] Lscnomvqoh1790 [address] [place], [address] MUCUS, URINE 0 SEEN {/hpf} (Normal) BACTERIA [...] CLARITY Sl. Cloudy (Normal) COLOR Yellow (Normal) 40-Nem-856605:09 CBC W/Diff, Automated Comments: Vkwghwxpvy7905 [place], [address] Absolute Lymph 1.33 {X10_3/ul} (Normal) Range: 0.83-4.51 [...] 4.2-5.4 WBC 5.7 K/mm3 (Normal) Range: 4.4-11.0 91-Hwz-302648:09 Comprehensive Metabolic Profil Comments: 'TROP' Serial specimen #1, #2, #3, or #4: 1 Ehucfh[address]tax0970 [address] [place], [place], [address] GAP 8 (Normal) Range: 5-15 CO2 33.0 [...] <126 mg/dLsuggests IMPAIRED HOMEOSTASIS per A.D.A. criteria. 78-Vvw-973929:09 Lactic Acid Comments: Mjdjttqbfx80[address] [place], [address] LACTIC ACID 1.5 mmol/L (Normal) Range: 0.4-2.0 58-Wwe-669248:09 Lipase Comments: 'TROP' Serial specimen #1, #2, #3, or #4: [address] [place] [address] Dhjgcipbwe1580 [address] [place], [address] LIPASE 40 U/L (Abnormal) Range: 73-393 :09 Partial Thromboplast Time Comments: Njhzbmvxab4228 [address] [place], [address] PTT 38.3 s (Abnormal) Range: 24.1-36.2 :09 Prothrombin Time w/INR Comments: Prgbbmpnxr[address] [place], [address] INR 1.3 (Normal) PROTIME 15.8 s (Abnormal) Range: 11.7-14.9 :09 Troponin-I Comments: 'TROP' Serial specimen #1, #2, #3, or #4: [address] [place] [address] Gnpxnnchcp8947 [place], [address] TROPONIN-I < 0.02 ng/mL (Normal) Comments: TROPONIN-I EXPECTED VALUES <0.05 NEGATIVE 0.06 - 0.59 AT RISK OF DC > OR = 0.60 SUGGEST DC 44-Zcu-412945:52 Potassium Comments: Fekweogolz0373 [address]se[place]anne [place], [address](392 K 3.4 mmol/L (Abnormal) Range: 3.5-5.1 39-Efe-95567:10 Basic Metabolic Profile (BMP) Comments: DR AVINA ORDERED: BMP, CBC, MRSADR.NOELLE ORDERED: [facility] Vtmnxdwntr1463 [address] [place], [address] GAP 12 (Normal) Range: 5-15 CO2 27.0 mmol/L (Normal) Range: 21.0-32.0 CL 99 mmol/L (Normal) Range: 98-107 K 2.7 mmol/L (Abnormal) Range: 3.5-5.1 Comments: Critical Result(s) Called at: 10:30:38 11/14/2016 by:Aura Ch to [facility] [place] NA 138 mmol/L (Normal) Range: 136-145 CA [...] 126 mg/dLsuggests DIABETES MELLITUS per A.D.A. criteria. 58-Gyq-39671:10 CBC-Complete Blood Cnt No Diff Comments: DR AVINA ORDERED: BMP, CBC, MRSADRNIGEL ORDERED: ESTEBAN AVINA ORDERED: BMP, CBC, HANSADRNIGEL ORDERED: [facility] Vgyunjymeh7927 [facility], [address] MPV 10.8 fL (Normal) Range: 6.2-12.0 PLT [...] 4.2-5.4 WBC 7.1 K/mm3 (Normal) Range: 4.4-11.0 01-Sva-47880:10 MRSA/SAID SCREEN Comments: Bpgzhagtof0068 [address] [place], [address] ; another doc MRSA+SAID SCRN See Note (Normal) Comments: DR AVINA ORDERED: BMP, CBC, MRSA ORDERED: K MRSA/SAID SCRNS. AUREUS S. aureus NegativeMRSA MRSA Negative :09 MAGNESIUM (42638) Comments: PATIENT NOT FASTINGPERFORMED BY: [facility]6370 [facility] [id number] Magnesium, Serum 1.7 mg/dL (Normal) Range: 1.6-2.3 :09 Metabolic Panel, Basic Comments: PATIENT NOT FASTINGPERFORMED BY: [employer] [facility] Yvhbbc5070 [address] [id number] (93117) Calcium, Serum 8.7 mg/dL (Normal) Range: 8.7-10.3 [...] Glucose, Serum 97 mg/dL (Normal) Range: 65-99 18-Pxz-096904:45 Urinalysis, Complete Comments: How was Urine Obtained? SUPERVISOR BAK[employer]ITATION TO SPECIFY Iczzgqoqxz6258 [address] [place], [id number] MUCUS, URINE RARE {/hpf} (Normal) BACTERIA RARE [...] (Normal) CLARITY Cloudy (Normal) COLOR Yellow (Normal) 51-Tgc-639611:53 CBC W/Diff, Automated Comments: Qcaypeqwny5633 [address] [place], [place], [address] Absolute Lymph 1.08 {X10_3/ul} (Normal) Range: 0.83-4.51 [...] 4.2-5.4 WBC 6.1 K/mm3 (Normal) Range: 4.4-11.0 23-Mnf-722494:53 Comprehensive Metabolic Profil Comments: Gkuulesqjb4729 [place], [address] GAP 12 (Normal) Range: 5-15 CO2 27.0 [...] per A.D.A. criteria. :53 Lactic Acid Comments: Svssctkkkc1224 [address]. [place], [place], [address] LACTIC ACID 2.2 mmol/L (Abnormal) Range: 0.4-2.0 :53 Partial Thromboplast Time Comments: Ypitajrxen9143 [place], [address] PTT 32.1 s (Normal) Range: 24.1-36.2 :53 Prothrombin Time w/INR Comments: Bptejurvcm6801 [address] [place], [place], [address] INR 1.0 (Normal) PROTIME 13.2 s (Normal) Range: 11.7-14.9 :54 Basic Metabolic Profile (BMP) Comments: Qylwahhtpa9834 [address] [place], [place], [address] GAP 10 (Normal) Range: 5-15 CO2 29.0 [...] :54 CBC-Complete Blood Cnt No Diff Comments: Tomxttchdx[address] [place], [place], [address] MPV 10.1 fL (Normal) Range: 6.2-12.0 PLT [...] (Normal) Range: 4.4-11.0 :54 Hemoglobin A1c Comments: Rfpbygguds2134 [address] [place], [place], [address] HGB A1C 6.4 % (Abnormal) Range: 4.2-6.3 :54 Liver Profile Comments: Mmfzsjltyl6628 [address] [place], [place], [address] D BILI 0.27 mg/dL (Normal) Range: 0.00-0.30 T BILI 0.80 mg/dL (Normal) Range: 0.20-1.00 ALT 12 U/L (Normal) Range: 12-78 ALK P 82 U/L (Normal) Range: 45-117 AST 10 U/L (Abnormal) Range: 15-37 GLOB 3.5 g/dL (Normal) Range: 2.3-3.5 ALB 3.2 g/dL (Abnormal) Range: 3.4-5.0 T PROT 6.7 g/dL (Normal) Range: 6.4-8.2 :54 MRSA/SAID SCREEN Comments: Goclgfbwcg7[address] [place], [address] MRSA+SAID SCRN See Note (Normal) Comments: MRSA/SAID SCRNS. AUREUS S. aureus NegativeMRSA MRSA Negative :54 Partial Thromboplast Time Comments: Edzzujlxpf[address] [place], [place], [address] PTT 40.7 s (Abnormal) Range: 24.1-36.2 :54 Prothrombin Time w/INR Comments: Zkxqqlbdeo[address] [place], [address] INR 1.1 (Normal) PROTIME 14.3 s (Normal) Range: 11.7-14.9 :55 CBC W/Diff, Automated Comments: Qdnpvaoamm[address] [place], [address] Absolute Lymph 1.18 {X10_3/ul} (Normal) [...] 4.2-5.4 WBC 13.8 K/mm3 (Abnormal) Range: 4.4-11.0 90-Apk-73477:55 Comprehensive Metabolic Profil Comments: Itwrzkmfzg6190 [place], [address] GAP 12 (Normal) Range: 5-15 CO2 24.0 [...] DIABETES MELLITUS per A.D.A. criteria. :22 MAGNESIUM (58975) Comments: PATIENT NOT FASTINGPERFORMED BY: [facility] [id number] Magnesium, Serum 1.5 mg/dL (Abnormal) Range: 1.6-2.3 :22 POTASSIUM SERUM (01288) Comments: PATIENT NOT FASTINGPERFORMED BY: [facility] [id number] Potassium, Serum 4.0 mmol/L (Normal) Range: 3.5-5.2 :13 Rapid Flu (32283 x 2) Influenza A Ag negative (Normal) :42 VITAMIN B12 AND FOLATES Comments: PATIENT NOT FASTINGPERFORMED BY: [facility] [id number] (07206) Folate (Folic Acid), Serum 18.3 ng/mL (Normal) Comments: A serum folate concentration of less than 3.1 ng/mL isconsidered to represent clinical deficiency. Vitamin B12 650 pg/mL (Normal) Range: 211-946 :42 TSH (61768) Comments: PATIENT NOT FASTINGPERFORMED BY: [facility] [id number] TSH 1.610 {uIU/mL} (Normal) Range: 0.450-4.500 59-Dkr-998353:42 Metabolic Panel, Comprehensive Comments: PATIENT NOT FASTINGPERFORMED BY: [facility]liumM[facility] [id number] (53231) ALT (SGPT) 9 [iU]/L (Normal) Range: 0-32 [...] (Normal) Range: 65-99 :26 HgA1C , Office (74893) HgA1C , Office 6.8 % (Normal) Range: 4.6 - 7.1 :26 Blood Glucose , Office (06487) Blood Glucose , Office 110 (Normal) :10 Culture, Body Fluid Comments: Adrwfamzyn0604 [facility] [place], [address] ; Another doc CUBF See [...] Fluid RBC, WBC AND Comments: LEFT KNEELEFT KNEEWUniversity Hospitals [facility]hu[facility] Center Dcyfcimeva2619 [facility] [place], [address] ; another doc Diff PATH [...] :30 Crystals, Body Fluid Comments: LEFT [facility] [address]bcahp[address] [place], [address] PATH REV Reviewed (Normal) SOURCE/BF SYNOVIAL (Normal) CRYSTALS/BF SEE PATH REV (Normal) :30 Culture, Body Fluid Comments: Nfooqevlwv[address] [place], [address] CUBF See Note (Normal) Comments: List Antibiotics Last 48 Hours? UNKList Antibiotics to be Started? UNKComments: LEFT KNEEGram StainCentrifuged Specimen? Culture performed on centrifuged specimen Gram Stain 2+ Red Blood Donya ls No White Blood Cells No organisms seen Body Fluid CultNO GROWTH IN 14 DAYS Cult, AnaerobicNo growth in 5 days. :48 CBC W/Diff, Automated Comments: Twglxizgje[address] [place], [address] Absolute Lymph 2.23 {X10_3/ul} (Normal) [...] 4.2-5.4 WBC 7.0 K/mm3 (Normal) Range: 4.4-11.0 1-Guo-603254:48 Comprehensive Metabolic Profil Comments: Rvqkcftqtx9324 [address] [place], [place], [address] GAP 10 (Normal) Range: 5-15 CO2 29.0 [...] 7-18 GLU 99 mg/dL (Normal) Range: 70-110 13-Pqk-83414:32 Comprehensive Metabolic Profil Comments: Vgflduflvg8409 [place], [address] GAP 8 (Normal) Range: 5-15 CO2 31.0 [...] <126 mg/dLsuggests IMPAIRED HOMEOSTASIS per A.D.A. criteria. 13-Wsi-02584:32 Culture, Urine Comments: Iejyvrgssg0196 [facility] [address]. [place], [place], [address] CUUR See Note (Normal) Comments: Urine CultureORGANISM [...] $ <=20 S(NF) indicates non-formulary drug at Pharmacy. Approval by Infectious Disease Specialist required before non- formulary drugs may be ordered and/or dispensed. 66-Atv-038013:08 Urinalysis, Complete Comments: How was Urine Obtained? CLEAN [facility] Odswpwryta1054 [facility] [address]. [place], [place], [address] MUCUS, URINE 0 SEEN {/hpf} (Normal) BACTERIA [...] (Normal) COLOR Yellow (Normal) :56 POTASSIUM SERUM (18786) Comments: PATIENT NOT FASTINGPERFORMED BY: UpEnergySt. Francis Medical CenterKupdtl4651 [address] [id number] Potassium, Serum 4.4 mmol/L (Normal) Range: 3.5-5.2 :56 MAGNESIUM (59406) Comments: PATIENT NOT FASTINGPERFORMED BY: UpEnergySt. Francis Medical CenterEjytpn6806 [address] [id number] Magnesium, Serum 1.5 mg/dL (Abnormal) Range: 1.6-2.3 :29 CBC WITH MANUAL DIFF Comments: PATIENT WAS FASTINGPERFORMED BY: UpEnergySt. Francis Medical CenterSiccbp7861 [address] [id number] Information: [id number], [id number] (91458) Immature Grans (Abs) 0.0 {x10E3/uL} (Normal) Range: [...] 3.77-5.28 WBC 5.8 {x10E3/uL} (Normal) Range: 3.4-10.8 6-Buk-059803:15 CBC, Platelets & Auto Diff Comments: PATIENT NOT FASTINGPERFORMED BY: [facility] Kwoqdz8466 [address] [id number] (33546) Immature Grans (Abs) 0.0 {x10E3/uL} (Normal) Range: [...] 3.77-5.28 WBC 14.0 {x10E3/uL} (Abnormal) Range: 3.4-10.8 9-Gmz-737174:15 Metabolic Panel, Comprehensive Comments: PATIENT NOT FASTINGPERFORMED BY: UpEnergySt. Francis Medical CenterDzqyka5269 [address] [id number] (64704) ALT (SGPT) 14 [iU]/L (Normal) Range: 0-32 [...] Glucose, Serum 98 mg/dL (Normal) Range: 65-99 56-Xio-506460:28 Metabolic Panel, Comments: PATIENT WAS FASTINGPERFORMED BY: UpEnergySt. Francis Medical CenterXvxteb8082 [facility] [address] [id number] Information: [id number] Comprehensive (02685) ALT (SGPT) 13 [iU]/L (Normal) Range: 0-32 [...] Glucose, Serum 110 mg/dL (Abnormal) Range: 65-99 0-Cip-549059:54 Urinalysis, Office (46161) UA - LEUKOCYTE ESTERASE Trace (Normal) UA - NITRITE Negative (Normal) URINE UROBILINGN JEWELS TIMED Normal mg/dL (Normal) UA - PROTEIN Negative mg/dL (Normal) UA - PH 6 (Abnormal) UA - BLOOD Negative (Normal) UA - SPECIFIC GRAVITY 1.015 (Normal) UA - KETONES Moderate mg/dL (Normal) UA - BILIRUBIN Negative (Normal) UA - GLUCOSE Negative (Normal) 06-Cmv-739347:21 Basic Metabolic Profile (BMP) Comments: Rdazklkpyl5656 [place], [address] GAP 9 (Normal) Range: 5-15 [...] 200 mg/dLsuggests DIABETES MELLITUS per A.D.A. criteria. 61-Pfg-954735:21 CBC W/Diff, Automated Comments: Ifauibtkft9299 [place], [address] Absolute Lymph 3.53 {X10_3/ul} (Normal) [...] 4.2-5.4 WBC 13.8 K/mm3 (Abnormal) Range: 4.4-11.0 84-Ppk-653124:21 Urinalysis, Complete Comments: Order Date: 04/25/16How was Urine Obtained? [facility] Rstugxpvnc7994 [place], [address] MUCUS, URINE 0 SEEN {/hpf} [...] (Normal) CLARITY Cloudy (Normal) COLOR Yellow (Normal) 11-Wpt-215263:20 Lactic Acid Comments: Fakunaxuip5846 [place], [address] LACTIC ACID 4.8 mmol/L (Abnormal) Range: 0.4-2.0 Comments: Critical Result(s) Called at: 19:26:18 04/25/2016 by:Tiffany Oliva RN :32 CBC W/Diff, Automated Comments: Xmnmxyluzl8807 [facility] [address] [place], [place], [address] Absolute Lymph 1.94 {X10_3/ul} (Normal) Range: 0.83-4.51 [...] Range: 4.4-11.0 :32 Comprehensive Metabolic Profil Comments: Fgaloplqcp0607 [place], [address] GAP 9 (Normal) Range: 5-15 [...] 126 mg/dLsuggests DIABETES MELLITUS per A.D.A. criteria. 48-Cmv-245688:01 CBC W/Diff, Automated Comments: Rkcpebynmk6814 [address] [place], [place], [address] Absolute Lymph 2.12 {X10_3/ul} (Normal) Range: 0.83-4.51 [...] 4.2-5.4 WBC 9.9 K/mm3 (Normal) Range: 4.4-11.0 56-Puz-558810:01 CRP Comments: Xwbirlliyi[address] [place], [address] C-REACTIVE PROT < 2.90 mg/L (Normal) Range: 0.0-3.0 Comments: C-Reactive Protein (CRP) provides useful information for thediagnosis, therapy and monitoring of inflammatory processesand associated diseases. For the evaluation of Relative Riskfor Cardiovascular Dise ase, a High Sensitivity CRP (HSCRP)should be ordered. 76-Syk-299403:01 Erythrocyte Sed Rate Comments: Yuymadficp[address] [place], [place], [address] SED RATE 10 mm/h (Normal) Range: 0-30 45-Hss-702656:13 CK-MB Quantitative and Index Comments: 'TROP' Serial specimen #1, #2, #3, or #4: 1'CKMB' Serial Specimen #1, #2 or #3? 1WUniversity [facility] Bl[address]klhfuic[address] [place], [place], [address] CKRI 1.5 % (Abnormal) Range: 0.0-1.4 Comments: RELATIVE INDEX >1.5% IS PRESUMPTIVELY POSITIVE CPKMB 1.0 ng/mL (Normal) Range: 0.0-5.0 Comments: CK-MB and RI Interpretation MB Relative Index Non-AMI <or= 5 NA Indeterminate > 5 <or= 4 AMI > 5 > 4 CPK TOTAL 65 U/L (Normal) Range: 26-192 [id number] Myoglobin, Serum Comments: [facility] (refer to report for specific site)refer to report for address and phone number Myoglobin, Ser 42 ng/mL (Normal) Range: 25-58 Comments: Performed at: [address] [id number] Director: Edil Robertson PhD, Phone: [phone] [id number] Troponin-I Comments: 'TROP' Serial specimen #1, #2, #3, or #4: 1'CKMB' Serial Specimen #1, #2 or #3? [id number] [place] [address], [id number] TROPONIN-I < 0.02 ng/mL (Normal) Comments: TROPONIN-I EXPECTED VALUES <0.05 NEGATIVE 0.06 - 0.59 AT RISK OF DC > OR = 0.60 SUGGEST DC [id number] URINE HANSA CULTURE-JEWELS COL Comments: PATIENT NOT FASTINGPERFORMED BY: [address] [id number] Information: [place] [id number] ([id number]) Antimicrobial MIHEAD (Normal) Comments: S = Susceptible; [...] mL (Abnormal) Urine Final report Culture,Comprehensive (Abnormal) [id number] Urinalysis, Office (75602) UA - LEUKOCYTE ESTERASE Small (Normal) UA - NITRITE Positive (Normal) URINE UROBILINGN JEWELS TIMED Normal mg/dL (Normal) UA - PROTEIN Trace mg/dL (Normal) UA - PH 7 (Normal) UA - BLOOD Negative (Normal) UA - SPECIFIC GRAVITY 1.025 (Normal) UA - KETONES Small mg/dL (Normal) UA - BILIRUBIN Small (Normal) UA - GLUCOSE Negative (Normal) 93-Isx-[id number]:38 Blood Glucose , Office (77192) Blood Glucose , Office 85 (Normal) :38 Basic Metabolic Profile (BMP) Comments: Is Patient Taking Vitamins or Folic Acid Supplements? [facility] [address] [place], [place], [address] GAP 9 (Normal) Range: 5-15 CO2 28.0 [...] Vitamins or Folic Acid Supplements? [facility] [id number] [place], [place], [id number] FOLATES 13.40 ng/mL (Normal) Range: 3.1-17.5 :38 Vitamin B12 723 pg/mL (Normal) Comments: [id number], [id number] Range: 211-911 :32 CBC W/Diff, Automated Comments: [id number] [place], [address] ; ordered by Dr. Colmenares Absolute Lymph [...] Range: 4.4-11.0 :32 Comprehensive Metabolic Profil Comments: Nqjxokwpai86[address] [place], [place], [id number] GAP 5 (Normal) Range: 5-15 CO2 31.0 [...] mg/dL (Normal) Range: 70-110 :03 LIPID PANEL (01465) Comments: PATIENT WAS FASTINGPERFORMED BY: CB [facility] Tmjtxy8008 [facility] [id number] BY: BN [facility] [address] [id number] LDL/HDL Ratio 3.2 {ratio_units} (Normal) Range: 0.0-3.2 [...] 1, 25-DIHYDROXY Comments: PATIENT WAS FASTINGPERFORMED BY: [employer]igo [employer] [facility] [id number] BY: [place]Energy[place] [id number] (10078) Calcitriol(1,25 di-OH Vit D) 51.7 pg/mL (Normal) Range: 19.9-79.3 :03 MICROALBUMIN: CREATININE Comments: PATIENT WAS FASTINGPERFORMED BY: scanR [facility] [id number] BY: [place]Energy[place] [id number] RATIO (42601) AND (96583) Microalb/Creat Ratio 35.5 {mg/g_creat} (Abnormal) Range: 0.0-30.0 Microalbumin, Urine 42.6 ug/mL (Abnormal) Range: 0.0-17.0 Creatinine, Urine 120.0 mg/dL (Normal) Range: 15.0-278.0 :03 METABOLIC PANEL, Comments: PATIENT WAS FASTINGPERFORMED BY: Unigo Vssqvy0624 [facility] [id number] BY: Puzzlium[address] [id number] COMPREHENSIVE (63907) ALT (SGPT) 14 [iU]/L (Normal) Range: 0-32 [...] Glucose, Serum 137 mg/dL (Abnormal) Range: 65-99 33-Rzq-57484:03 CBC, PLATELETS & AUT DIFF Comments: PATIENT WAS FASTINGPERFORMED BY: CB [facility] Lvlbtv7933 [facility] [id number] BY: [facility] [address] [id number] Information: [id number] (66873) Immature Grans (Abs) 0.0 {x10E3/uL} (Normal) Range: [...] (THYROID STIMULATING Comments: PATIENT WAS FASTINGPERFORMED BY: [employer]igo [employer] [facility] [id number] BY: UpEnergy[address] [id number] HORMONE) (33711) TSH 3.840 {uIU/mL} (Normal) Range: 0.450-4.500 :03 VITAMIN B12 AND FOLATES Comments: PATIENT WAS FASTINGPERFORMED BY: scanR [facility] [id number] BY: Puzzlium[address] [id number] (15705) Folate (Folic Acid), Serum 14.3 ng/mL (Normal) Comments: A serum folate concentration of less than 3.1 ng/mL isconsidered to represent clinical deficiency. Vitamin B12 742 pg/mL (Normal) Range: 211-946 :56 HgA1C , Office (04840) HgA1C , Office 6.8 % (Normal) Range: 4.6 - 7.1 :56 Blood Glucose , Office (24160) Blood Glucose , Office 128 (Normal) :36 CBC W/Diff, Automated Comments: Vechlycgev[address] [place], [place], [id number] Absolute Lymph 2.25 {X10_3/ul} (Normal) Range: 0.83-4.51 [...] Range: 4.4-11.0 :36 Comprehensive Metabolic Profil Comments: Qsmsredoqd[address] [place], [address] GAP 8 (Normal) Range: 5-15 CO2 28.0 [...] 126 mg/dLsuggests DIABETES MELLITUS per A.D.A. criteria. 9-Xna-865295:12 ANTINUCLEAR ANTIBODIES DIRECT Comments: [facility] (refer to report for specific site)refer to report for address and phone number [place]ERT[place]-DIRECT Negative (Normal) Comments: Performed at: - [facility] [id number] Director: Edil Robertson PhD, Phone: [phone] 4-Sjt-488537:12 CBC W/Diff, Automated Comments: Wlntpoalih8[address] [place], [address] Absolute Lymph 1.93 {X10_3/ul} (Normal) [...] report for address and phone number ANTI-CCP 704662 4 {units} (Normal) Range: 0-19 Comments: Negative <20 Weak positive 20 - 39 Moderate positive 40 - 59 Strong positive >59 :12 Comprehensive Metabolic Profil Comments: Wnftaysezn6385 [address] [place], [place], [address] GAP 6 (Normal) Range: 5-15 CO2 33.0 [...] 7-18 GLU 95 mg/dL (Normal) Range: 70-110 8-Mkr-571155:12 Hep B Surface Antibodies Comments: [facility] (refer to report for specific site)refer to report for address and phone number Hep B Loi AB Reactive (Normal) Comments: Non Reactive: Inconsistent with immunity, less than 10 mIU/mL Reactive: Consistent with immunity, greater than 9.9 mIU/mL 7-Tjt-566284:12 Hepatitis B Surface Ag Comments: [facility] (refer to report for specific site)refer to report for address and phone number HB SURF AG Negative (Normal) 9-Cnr-577165:12 Hepatitis B Core AB IgM Comments: [facility] (refer to report for specific site)refer to report for address and phone number HB CORE [id number] Negative (Normal) Comments: Performed at: - [facility] [id number] Director: Edil Robertson PhD, Phone: [phone] at: 2Q - [facility] YXT6221 [place], [place] [id number] Director: Jared Rodriguez PhD, Phone: [phone] at: - [facility] [id number] Director: Dylan Matthews MD, Phone: [phone] 7-Glb-513056:12 Hepatitis C Antibodies Comments: [facility] (refer to [...] a more specific supplemental or PCR testing. [facility] offers HCV Ab w/Reflex to Verification test #[id number]. :12 HLA B27 Negative (Normal) Comments: [facility] (refer to report for specific site)refer to report for address and phone number Comments: HLA-B*27 NegativeHLA allele interpretation for all loci based on IMGT/HLAdatabase version 3.15A [facility] ID Number [id number] test was performed using PCR (Polymerase ChainReaction)/SSOP (Sequence Specific Oligonucleotide Probes)technique. SBT (Sequence Based Typing) and/or SSP(Sequence Specific Primers) may be used as supplementalmethods when necessary. Please contact HLA CustomerService at [phone] if you have any questions. Director of HLA Laboratory Dr Jared Rodriguez, PhD :12 Rheumatoid Factor Comments: Dnzkxkqytz95[address] [place], [address] RHEUMATOID FAC < 10.0 {IU/mL} (Normal) 1-Cnk-167720:12 Vitamin D,25 Hydroxy Comments: Gfgkeycota7318 [place], [address] Vitamin D 25-OH 50.9 ng/mL (Normal) Comments: Vitamin D 25(OH) Status Range Deficiency <20 ng/mL (50nmol/L) Insuffciency 20 - 30 ng/mL (50 - 75 nmol/L) Sufficiency 30 - 100 ng/mL (75 - 250 nmol/L) Toxicity >100 ng/mL (>250 nmol/L) 17-Uhc-14516:37 LIPID PANEL (72909) Comments: PATIENT WAS FASTINGPERFORMED BY: [employer] Social MediaFormerly [facility] [id number] LDL/HDL Ratio 2.8 {ratio_units} (Normal) Range: 0.0-3.2 [...] - 169 >19 years 100 - 199 61-Nul-68968:37 CBC, PLATELETS & AUT DIFF Comments: PATIENT WAS FASTINGPERFORMED BY: [employer] LabCoLockrRyqqyo8898 [address] [facility] [id number] Information: [id number] (23619) Immature Grans (Abs) 0.0 {x10E3/uL} (Normal) Range: [...] B-12 (CYANOCOBALAMIN) Comments: PATIENT WAS FASTINGPERFORMED BY: Unigo Hwhvlv2132 PingCo.comin [place] [id number] (77587) Vitamin B12 871 pg/mL (Normal) Range: 211-946 :37 Vitamin D Hydroxy (04524) Comments: PATIENT WAS FASTINGPERFORMED BY: [employer] LabZambikes Malawirp Alddew1090 Doyle EntrecardDublin [place] [id number] Vitamin D, 25-Hydroxy 69.6 ng/mL (Normal) Range: 30.0-100.0 Comments: Vitamin D deficiency has been defined by the [place] of[place]icine and an Endocrine Society practice guideline as alevel of serum 25-OH vitamin D less than 20 ng/mL (1,2).The Endocrine Society went on to further define vitamin Dinsufficiency as a level between 21 and 29 ng/mL (2).1. IOM ([place] of Medicine). 2010. Dietary reference intakes for calcium and D. [place]: The National Academies Press.2. Delma MF, Mckenna ABDALLA, Dane MACKENZIE, et al. Evaluation, treatment, and prevention of vitamin D deficiency: an Endocrine Society clinical practice guideline. JCEM. 2010; 96(7):1911-30. :37 METABOLIC PANEL, COMPREHENSIVE Comments: PATIENT WAS FASTINGPERFORMED BY: [facility] Tstqjy8636 [facility] [id number]; apt. 07-01-15 (43602) ALT (SGPT) 10 [iU]/L (Normal) Range: 0-32 [...] (Abnormal) Range: 65-99 :02 HgA1C , Office (84406) HgA1C , Office 7.1 % (Normal) Range: 4.6 - 7.1 :24 EBV Panel (12815) Comments: PATIENT NOT FASTINGPERFORMED BY: PuzzliumMunson Healthcare [facility]6370 [facility] [id number] Interpretation: SPRCS (Normal) Comments: EBV Interpretation Chart [...] DIFF WBC Comments: PATIENT NOT FASTINGPERFORMED BY: [facility]6370 [facility] [id number] Information: [id number] (14576) Immature Grans (Abs) 0.0 {x10E3/uL} (Normal) Range: [...] 3.77-5.28 WBC 6.7 {x10E3/uL} (Normal) Range: 3.4-10.8 44-Cai-440380:37 HANSA CULTURE-OTHER (63246) Comments: PATIENT NOT FASTINGPERFORMED BY: UpEnergyGuadalupe County HospitalOarkve2254 [facility] [id number] Information: SRC:THRT [id number] Result 1 RRF (Normal) Comments: Routine respiratory vicente Upper Respiratory Culture Final report (Normal) 83-Nhc-574668:30 Rapid Strep Test, Office (28792) Rapid Strep Test, Office Negative (Normal) 06-Feb-20159:15 CBC, Platelet, No Differential Comments: PATIENT WAS FASTINGPERFORMED BY: [employer] Avuqxn4744 [facility] [id number] Platelets 245 {x10E3/uL} (Normal) Range: 150-379 RDW [...] (14) Comments: PATIENT WAS FASTINGPERFORMED BY: LabCoSt. Francis Medical CenterYvfuch9434 [facility] [id number] Information: [id number] ALT (SGPT) 8 [iU]/L (Normal) Range: 0-32 [...] With LDL/HDL Comments: PATIENT WAS FASTINGPERFORMED BY: PuzzliumMunson Healthcare [facility] Hospital6370 [facility] [id number] Ratio LDL/HDL Ratio 3.7 {ratio_units} Range: 0.0-3.2 [...] pg/mL (Normal) Comments: PATIENT WAS FASTINGPERFORMED BY: PuzzliumMunson Healthcare [facility] Hospital6370 [facility] [id number] :15 Range: 211-946 Vitamin D, 25-Hydroxy 56.4 ng/mL (Normal) Comments: PATIENT WAS FASTINGPERFORMED BY: [facility]6370 [facility] [id number] :15 Range: 30.0-100.0 Comments: Vitamin D deficiency has been defined by the [place] of[place]icine and an Endocrine Society practice guideline as alevel of serum 25-OH vitamin D less than 20 ng/mL (1,2).The Endocrine Society went on to further define vitamin Dinsufficiency as a level between 21 and 29 ng/mL (2).1. IOM ([place] Medicine). 2010. Dietary reference intakes for calcium and D. [place]: The National Academies Press.2. Mckenna Christie, Dane MACKENZIE, et al. Evaluation, treatment, and prevention of vitamin D deficiency: an Endocrine Society clinical practice guideline. JCEM. 2010; 96(7):1911-30. :33 HgA1C , Office (13386) HgA1C , Office 6.4 % (Normal) Range: 4.6 - 7.1 :27 Potassium Comments: Test performed at: V[address] [place] [address] K 3.5 mmol/L (Normal) Range: 3.5-5.1 :59 Vitamin D Hydroxy (23453) Comments: PATIENT NOT FASTINGPERFORMED BY: Lod[employer] Social Mediain [place] [id number] Vitamin D, 25-Hydroxy 40.6 ng/mL (Normal) Range: 30.0-100.0 Comments: Vitamin D deficiency has been defined by the [place] of[place]icine and an Endocrine Society practice guideline as alevel of serum 25-OH vitamin D less than 20 ng/mL (1,2).The Endocrine Society went on to further define vitamin Dinsufficiency as a level between 21 and 29 ng/mL (2).1. IOM ([place]). 2010. Dietary reference intakes for calcium and D. [place]: The National Academies Press.2. Delma RIVERA, Mckenna ABDALLA, Dane MACKENZIE, et al. Evaluation, treatment, and prevention of vitamin D deficiency: an Endocrine Society clinical practice guideline. JCEM. 2010; 96(7):1911-. :59 T4, FREE (THYROXINE) Comments: PATIENT NOT FASTINGPERFORMED BY: [employer]70 [employer]comin [place] [id number] Information: [id number] (52860) T4,Free(Direct) 1.22 ng/dL (Normal) Range: 0.82-1.77 :59 T3, FREE (TRIDOTHYRONINE) (13568) Comments: PATIENT NOT FASTINGPERFORMED BY: ENBALA Power NetworksDublin [place] [id number] Triiodothyronine,Free,Serum 3.2 pg/mL (Normal) Range: 2.0-4.4 :59 TSH (09416) Comments: PATIENT NOT FASTINGPERFORMED BY: LabMun[facility] Hospital6370 [facility] [id number] TSH 2.460 {uIU/mL} (Normal) Range: 0.450-4.500 :59 SED RATE ERYTHROCYTE (25646) Comments: PATIENT NOT FASTINGPERFORMED BY: LabMun[facility] Hospital6370 [facility] [id number] Sedimentation Rate-Westergren 3 mm/h (Normal) Range: 0-40 :59 C-REACTIVE PROTEIN (59387) Comments: PATIENT NOT FASTINGPERFORMED BY: [facility]6[address] [facility] [id number] C-Reactive Protein, Quant 2.6 mg/L (Normal) Range: 0.0-4.9 :06 TSH (64256) Comments: PATIENT NOT FASTINGPERFORMED BY: LabM[facility] Hospital6370 [facility] [id number] TSH 1.920 {uIU/mL} (Normal) Range: 0.450-4.500 :06 CBC with auto diff Comments: PATIENT NOT FASTINGPERFORMED BY: [facility]6[address] [facility] [id number] Information: [id number] (32563) Immature Grans (Abs) 0.0 {x10E3/uL} (Normal) Range: [...] 3.77-5.28 WBC 7.9 {x10E3/uL} (Normal) Range: 3.4-10.8 8-Wrl-234463:06 METABOLIC PANEL, COMPREHENSIVE Comments: PATIENT NOT FASTINGPERFORMED BY: LabCoSt. Francis Medical CenterRmoite8393 [facility] [id number] (14818) ALT (SGPT) 6 [iU]/L (Normal) Range: 0-32 [...] Glucose, Serum 111 mg/dL (Abnormal) Range: 65-99 4-Ljg-497330:09 URINE HANSA CULTURE (JEWELS Comments: PATIENT NOT FASTINGPERFORMED BY: LabCoSt. Francis Medical CenterZgvzfh1725 [facility] [id number] Information: SRC:[facility] [id number] COL COUNT) (15600) Result 1 CNSNSS (Abnormal) Comments: Coagulase negative [...] S Urine Final report Culture,Comprehens (Abnormal) ananth 4-Gtq-288523:54 Urinalysis, Office (13261) UA - LEUKOCYTE ESTERASE Negative (Normal) UA - NITRITE Negative (Normal) URINE UROBILINGN JEWELS TIMED Normal mg/dL (Normal) UA - PROTEIN Negative mg/dL (Normal) UA - PH 6.5 (Normal) UA - BLOOD Negative (Normal) UA - SPECIFIC GRAVITY 1.015 (Normal) UA - KETONES Negative mg/dL (Normal) UA - BILIRUBIN Negative (Normal) UA - GLUCOSE Negative (Normal) 63-Psp-942935:40 Urine Drug Screen (VISTA) Comments: Has pt arrived? YTest performed at: Qixrqnmqun[address] [place] [address] THC NEGATIVE (Normal) PCP NEGATIVE [...] MUST BE ORDERED SEPARATELY. USE TESTMNEMONIC: UTCA 38-Njh-746722:25 Acetaminophen (Tylenol) Level Comments: Test performed at: [address]ulgpxcxx[address] [place] [address] ACETAMINOPHEN < 2.0 ug/mL (Abnormal) Range: 10.0-30.0 15-Xyk-458869:25 Basic Metabolic Profile (BMP) Comments: Test performed at: Takegcbovy[address] [place] [address] GAP 8 (Normal) Range: 5-15 [...] 126 mg/dLsuggests DIABETES MELLITUS per A.D.A. criteria. 90-Tbm-039144:25 CBC W/Diff, Automated Comments: Test performed at: Moisnxhiiu[address] [place], [place] [address] Absolute Lymph 0.55 {X10_3/ul} (Abnormal) Range: 0.83-4.51 [...] 4.2-5.4 WBC 11.3 K/mm3 (Abnormal) Range: 4.4-11.0 98-Jxg-143817:25 Partial Thromboplast Time Comments: Test performed at: Oosmmkpvwu6064 [facility] [place] [address] PTT 31.9 s (Normal) Range: 24.1-36.2 90-Ure-518572:25 Prothrombin Time w/INR Comments: Test performed at: Fxlvwicaup7934 [place] [address] INR 1.1 (Normal) PROTIME 14.0 s (Normal) Range: 11.7-14.9 :22 Basic Metabolic Profile (BMP) Comments: Test performed at: Bbjyujsqbl45[address] [place] [address] GAP 8 (Normal) Range: 5-15 CO2 31.0 [...] Blood Cnt No Diff Comments: Test performed at: Reirxtqmaj[address] [place] [address] MPV 10.0 fL (Normal) Range: 6.2-12.0 [...] Blood Cnt No Diff Comments: Test performed at: Nalcjxkzrt8110 [facility] [place] [address] MPV 10.4 fL (Normal) Range: [...] Basic Metabolic Profile (BMP) Comments: Test performed at: Vacjgejxjs4582 [facility] [place] [address] GAP 8 (Normal) Range: 5-15 [...] 126 mg/dLsuggests DIABETES MELLITUS per A.D.A. criteria. 78-Pbz-87340:52 CBC-Complete Blood Cnt No Diff Comments: Test performed at: Uplwbjafnl9549 [facility] [address] [place], [place] [address] MPV 10.0 fL (Normal) Range: 6.2-12.0 PLT [...] 4.2-5.4 WBC 8.7 K/mm3 (Normal) Range: 4.4-11.0 55-Kjq-166582:00 Bedside Glucose Comments: Test performed at: Maqgjhrirc3634 [place] [address] BEDSIDE GLU 138 mg/dL (Abnormal) Range: 70-110 Comments: No Action RequiredMANAGEMENT OF PATIENT CARE PER NURSING PROTOCOL 55-Ccy-644572:12 Bedside Glucose Comments: Test performed at: Yyizohhsfm5990 [place] [address] BEDSIDE GLU 108 mg/dL (Normal) Range: 70-110 Comments: No Action RequiredMANAGEMENT OF PATIENT CARE PER NURSING PROTOCOL 01-Yps-85383:07 VITAMIN B-12 (CYANOCOBALAMIN) Comments: PATIENT WAS FASTINGPERFORMED BY: [facility] Hcqjjn1556 [facility] [id number] (65076) Vitamin B12 498 pg/mL (Normal) Range: 211-946 04-Nla-41004:07 MICROALBUMIN: CREATININE RATIO Comments: PATIENT WAS FASTINGPERFORMED BY: UpEnergySt. Francis Medical CenterXvoyru8002 [facility] [id number] (95931) AND (37395) Microalb/Creat Ratio 24.7 {mg/g_creat} (Normal) Range: 0.0-30.0 Microalbumin, Urine 36.2 ug/mL (Abnormal) Range: 0.0-17.0 Creatinine, Urine 146.6 mg/dL (Normal) Range: 15.0-278.0 :07 CBC W/AUTO DIFF WBC Comments: PATIENT WAS FASTINGPERFORMED BY: UpEnergyGuadalupe County HospitalGugkmn8054 [facility] [id number] Information: [id number] (22806) Immature Grans (Abs) 0.0 {x10E3/uL} (Normal) Range: [...] 7.0 {x10E3/uL} (Normal) Range: 3.4-10.8 :07 TSH (61620) Comments: PATIENT WAS FASTINGPERFORMED BY: UpEnergySt. Francis Medical CenterGldkqw2596 [facility] [id number] TSH 4.510 {uIU/mL} (Abnormal) Range: 0.450-4.500 :07 LIPID PANEL (93609) Comments: PATIENT WAS FASTINGPERFORMED BY: LabZambikes MalawiSt. Francis Medical CenterYvnrxf5110 [facility] [id number] VLDL Cholesterol Peg VLDLCH mg/dL (Normal) Range: [...] PANEL, COMPREHENSIVE Comments: PATIENT WAS FASTINGPERFORMED BY: UpEnergySt. Francis Medical CenterYrsyym3998 [facility] [id number] (44957) ALT (SGPT) 10 [iU]/L (Normal) Range: 0-32 [...] (Abnormal) Range: 65-99 :22 HgA1C , Office (44792) HgA1C , Office 6.9 % (Normal) Range: [...] Results called on 08/07/14152 by Zohreh THOMPSON ([facility]) [phone]. Comments: Copy of report sent to Infection Control Printer MS#[id number] 08/07/14 [address] [facility]. RESULTS PRINTED MS#-[id number] S. AUREUS S. aureus PositiveMRSA MRSA Negative 18-Zix-85285:34 VITAMIN B-12 (CYANOCOBALAMIN) Comments: PATIENT WAS FASTINGPERFORMED BY: PuzzliumMunson Healthcare [facility]illac Hospital6370 [facility] [id number] (10180) Vitamin B12 1631 pg/mL (Abnormal) Range: 211-946 :34 CBC W/AUTO DIFF WBC Comments: PATIENT WAS FASTINGPERFORMED BY: LabCoSt. Francis Medical CenterLmccfr0315 [facility] [id number] Information: [id number] (59777) Immature Grans (Abs) 0.0 {x10E3/uL} (Normal) Range: [...] 3.77-5.28 WBC 4.0 {x10E3/uL} (Normal) Range: 3.4-10.8 60-Kqs-63874:34 METABOLIC PANEL, COMPREHENSIVE Comments: PATIENT WAS FASTINGPERFORMED BY: [facility] HospitalCoAnthony Ville 0545470 [facility] [id number] (40933) ALT (SGPT) 10 [iU]/L (Normal) Range: 0-32 [...] mg/dL (Abnormal) Range: 65-99 :34 LIPID PANEL (12054) Comments: PATIENT WAS FASTINGPERFORMED BY: LabCoSt. Francis Medical CenterFfxoyv8749 [facility] [id number] LDL/HDL Ratio 3.3 {ratio_units} (Abnormal) Range: 0.0-3.2 [...] Examination Comments: PATIENT WAS FASTINGPERFORMED BY: [facility] Eibqqx8028 [facility] [id number] Bacteria None seen (Normal) Epithelial Cells (non renal) 0-10 {/hpf} (Normal) Range: 0 - 10 RBC None seen {/hpf} (Normal) Range: 0 - 2 WBC 0-5 {/hpf} (Normal) Range: 0 - 5 :12 TSH (95297) Comments: PATIENT WAS FASTINGPERFORMED BY: [facility] Eyezjz1386 [facility] [id number]; non-emergent till apt this week TSH 1.560 {uIU/mL} (Normal) Range: 0.450-4.500 :12 URINALYSIS, W/ MICRO (87674) Comments: PATIENT WAS FASTINGPERFORMED BY: LabCo[facility] Lncuqz3870 [facility] [id number] Microscopic Examination See below: (Normal) Comments: Microscopic was indicated and was performed. Microscopic Examination MICRON (Normal) Comments: Microscopic follows if indicated. Nitrite, Urine Negative (Normal) Urobilinogen,Semi-Qn 0.2 mg/dL (Normal) Range: 0.0-1.9 Bilirubin Negative (Normal) Occult Blood Negative (Normal) Ketones Negative (Normal) Glucose Negative (Normal) Protein Trace (Normal) WBC Esterase Negative (Normal) Appearance Clear (Normal) Urine-Color Yellow (Normal) pH 8.0 (Abnormal) Range: 5.0-7.5 Specific [place] 1.014 (Normal) Range: 1.005-1.030 :12 Vitamin D Hydroxy (66405) Comments: PATIENT WAS FASTINGPERFORMED BY: LabCo[facility] Ednaxr4037 [facility] [id number] Vitamin D, 25-Hydroxy 42.2 ng/mL (Normal) Range: 30.0-100.0 Comments: Vitamin D deficiency has been defined by the [place] of[place]icine and an Endocrine Society practice guideline as alevel of serum 25-OH vitamin D less than 20 ng/mL (1,2).The Endocrine Society went on to further define vitamin Dinsufficiency as a level between 21 and 29 ng/mL (2).1. IOM ([place]). 2010. Dietary reference intakes for calcium and D. [place]: The National Academies Press.2. Delma MF, Mckenna ABDALLA, Dane MACKENZIE, et al. Evaluation, treatment, and prevention of vitamin D deficiency: an Endocrine Society clinical practice guideline. JCEM. 2010; 96(7):1911-30. :12 MICROALBUMIN: CREATININE RATIO Comments: PATIENT WAS FASTINGPERFORMED BY: MemBlaze6370 [facility] [id number] (41509) AND (56114) Microalb/Creat Ratio 4.7 {mg/g_creat} (Normal) Range: 0.0-30.0 Creatinine, Urine 49.4 mg/dL (Normal) Range: 15.0-278.0 Microalbumin, Urine 2.3 ug/mL (Normal) Range: 0.0-17.0 :12 METABOLIC PANEL, Comments: PATIENT WAS FASTINGPERFORMED BY: Inaura6370 [facility] [id number] Information: [id number] COMPREHENSIVE (19119) ALT (SGPT) 12 [iU]/L (Normal) Range: 0-32 [...] mg/dL (Abnormal) Range: 65-99 :12 LIPID PANEL (13341) Comments: PATIENT WAS FASTINGPERFORMED BY: [employer] Social MediaFormerly [facility] [id number] LDL/HDL Ratio 2.7 {ratio_units} (Normal) Range: 0.0-3.2 [...] B-12 (CYANOCOBALAMIN) Comments: PATIENT WAS FASTINGPERFORMED BY: [employer] MediaFormerly [facility] [id number] (98855) Vitamin B12 287 pg/mL (Normal) Range: 211-946 :34 HgA1C , Office (45354) HgA1C , Office 6.3 % (Normal) Range: 4.6 - 7.1 :55 Creatine Kinase Total (55792) Comments: PATIENT NOT FASTINGPERFORMED BY: [employer] CorporationNovant Health [facility] [id number] Creatine Kinase,Total,Serum 105 U/L (Normal) Range: 24-173 :55 TSH (29809) Comments: PATIENT NOT FASTINGPERFORMED BY: [employer]igo [employer] [facility] [id number] TSH 1.590 {uIU/mL} (Normal) Range: 0.450-4.500 :55 METABOLIC PANEL, Comments: PATIENT NOT FASTINGPERFORMED BY: CLARITA [facility] Ajolsb3092 [address] [place] [id number] Information: [id number] COMPREHENSIVE (41385) ALT (SGPT) 13 [iU]/L (Normal) Range: 0-32 [...] (Abnormal) Range: 65-99 :33 HgA1C , Office (48013) HgA1C , Office 6.7 % (Normal) Range: 4.6 - 7.1 :46 MICROALBUMIN: CREATININE RATIO Comments: PATIENT WAS FASTINGPERFORMED BY: [employer] Mjxebq1663 [address] [facility] Hospitalblin [place] [id number] (72943) AND (23079) Microalb/Creat Ratio 20.0 {mg/g_creat} (Normal) Range: 0.0-30.0 Microalbumin, Urine 21.7 ug/mL (Abnormal) Range: 0.0-17.0 Creatinine, Urine 108.5 mg/dL (Normal) Range: 15.0-278.0 :46 TSH (41011) Comments: PATIENT WAS FASTINGPERFORMED BY: [employer] Jaitwa7170 [address] [facility] Hospitalblin [place] [id number] TSH 2.670 {uIU/mL} (Normal) Range: 0.450-4.500 :46 Vitamin D Hydroxy (49813) Comments: PATIENT WAS FASTINGPERFORMED BY: [employer] Bgbtkx3599 [address] [facility] Hospitalblin [place] [id number] Vitamin D, 25-Hydroxy 42.9 ng/mL (Normal) Range: 30.0-100.0 Comments: Vitamin D deficiency has been defined by the [place] [employer] and an Endocrine Society practice guideline as alevel of serum 25-OH vitamin D less than 20 ng/mL (1,2).The Endocrine Society went on to further define vitamin Dinsufficiency as a level between 21 and 29 ng/mL (2).1. IOM ([place] [employer]). 2010. Dietary reference intakes for calcium and D. [place]: The National Academies Press.2. Delma MF, Mckenna NC, Loree-Werner MACKENZIE, et al. Evaluation, treatment, and prevention of vitamin D deficiency: an Endocrine Society clinical practice guideline. JCEM. 2010; 96(7):1911-30. :46 CBC, PLATELETS & AUT DIFF Comments: PATIENT WAS FASTINGPERFORMED BY: [facility]liumCo[facility] Pulfei9[address] [id number] Information: [id number] (51919) Immature Grans (Abs) 0.0 {x10E3/uL} (Normal) Range: [...] 3.77-5.28 WBC 8.7 {x10E3/uL} (Normal) Range: 3.4-10.8 20-Cje-358360:46 VITAMIN B-12 (CYANOCOBALAMIN) Comments: PATIENT WAS FASTINGPERFORMED BY: LabCoSt. Francis Medical CenterAjbggk3664 [address] [id number] (77078) Vitamin B12 382 pg/mL (Normal) Range: 211-946 24-Mxd-701278:46 METABOLIC PANEL, COMPREHENSIVE Comments: PATIENT WAS FASTINGPERFORMED BY: LabCoSt. Francis Medical CenterSocutv8335 [address] [id number] (22549) ALT (SGPT) 15 [iU]/L (Normal) Range: 0-32 [...] Glucose, Serum 130 mg/dL (Abnormal) Range: 65-99 65-Yzu-387665:46 LIPID PANEL (14662) Comments: PATIENT WAS FASTINGPERFORMED BY: LabCoSt. Francis Medical CenterPmizba7[address] [id number] LDL/HDL Ratio 3.4 {ratio_units} (Abnormal) Range: 0.0-3.2 LDL Cholesterol Calc 130 mg/dL (Abnormal) Range: 0-99 VLDL Cholesterol Peg 57 mg/dL (Abnormal) Range: 5-40 HDL Cholesterol 38 mg/dL (Abnormal) Comments: According to ATP-III Guidelines, HDL-C >59 mg/dL is considered anegative risk factor for CHD. Triglycerides 287 mg/dL (Abnormal) Range: 0-149 Cholesterol, Total 225 mg/dL (Abnormal) Range: 100-199 :44 HgA1C , Office (82102) HgA1C , Office 6.6 % (Normal) Range: 4.6 - 7.1 :43 CBC, Platelets & Auto Diff Comments: PATIENT NOT FASTINGPERFORMED BY: LabCoSt. Francis Medical CenterZviozx15[address] [id number] Information: [id number] (36505) Immature Grans (Abs) 0.0 {x10E3/uL} (Normal) Range: [...] (Normal) Range: 3.4-10.8 :43 Metabolic Panel, Basic (03442) Comments: PATIENT NOT FASTINGPERFORMED BY: [facility] [id number] Calcium, Serum 9.4 mg/dL (Normal) Range: 8.6-10.2 [...] mg/dL (Abnormal) Range: 65-99 :10 HANSA CULTURE-OTHER (30161) Comments: PATIENT NOT FASTINGPERFORMED BY: [facility] [id number] Information: SRC:THRT [id number] Result 1 RFMNR (Normal) Comments: Mixed growth consisting of multiple gram negative rods and routinerespiratory vicente. Upper Respiratory Culture Final report (Normal) :56 Rapid Strep Test, Office (11166) Rapid Strep Test, Office Negative (Normal) :03 Blood Glucose , Office (71806) Blood Glucose , Office 150 (Normal) :14 PPD (62983) Comments: Lot: [id number]: 12/17Amt: 0.1mlRoute: intradermalSite: R FAGiven by: ANGEL Merlso SKIN TEST INTRADERMAL TB negative (Normal) :39 HgA1C , Office (61382) HgA1C , Office 6.4 % (Normal) Range: 4.6 - 7.1 :31 Microscopic Examination Comments: PATIENT WAS FASTINGPERFORMED BY: Unigo Hmtnem95[address] [id number] Bacteria Few (Normal) Mucus Threads Present (Normal) Epithelial Cells (non renal) 0-10 {/hpf} (Normal) Range: 0 - 10 RBC 0-3 {/hpf} (Normal) Range: 0 - 3 WBC 0-5 {/hpf} (Normal) Range: 0 - 5 :31 MICROALBUMIN: CREATININE RATIO Comments: PATIENT WAS FASTINGPERFORMED BY: [employer] Tqyvqk48[address] [id number] (44218) AND (91597) Microalb/Creat Ratio 12.6 {mg/g_creat} (Normal) Range: 0.0-30.0 Microalbumin, Urine 9.2 ug/mL (Normal) Range: 0.0-17.0 Creatinine, Urine 73.3 mg/dL (Normal) Range: 15.0-278.0 :31 CBC WITH MANUAL DIFF Comments: PATIENT WAS FASTINGPERFORMED BY: [employer] Lmzkpp6[address] [id number] Information: [id number] (06160) Immature Grans (Abs) 0.0 {x10E3/uL} (Normal) Range: [...] COMPREHENSIVE Comments: PATIENT WAS FASTINGPERFORMED BY: LabCoSt. Francis Medical CenterKtpoma08[address] [id number] (14050) ALT (SGPT) 14 [iU]/L (Normal) Range: 0-32 [...] (Abnormal) Range: 65-99 :31 URINALYSIS, W/ MICRO (80001) Comments: PATIENT WAS FASTINGPERFORMED BY: ENBALA Power NetworksNovant Health [facility] [id number] Microscopic Examination See below: (Normal) Microscopic Examination MICRON (Normal) Comments: Microscopic follows if indicated. Nitrite, Urine Negative (Normal) Urobilinogen,Semi-Qn 0.2 mg/dL (Normal) Range: 0.0-1.9 Bilirubin Negative (Normal) Occult Blood Negative (Normal) Ketones Negative (Normal) Glucose Negative (Normal) Protein Negative (Normal) Appearance Clear (Normal) Urine-Color Yellow (Normal) WBC Esterase Negative (Normal) pH 8.5 (Abnormal) Range: 5.0-7.5 Specific [place] 1.018 (Normal) Range: 1.005-1.030 :31 LIPID PANEL (18887) Comments: PATIENT WAS FASTINGPERFORMED BY: VMware70 [facility] CenterTrivopFormerly [facility] [id number] LDL Cholesterol Calc 75 mg/dL (Normal) Range: [...] B-12 (CYANOCOBALAMIN) Comments: PATIENT WAS FASTINGPERFORMED BY: scanR Doyle [facility] [id number] (11609) Vitamin B12 299 pg/mL (Normal) Range: 211-946 :31 Vitamin D Hydroxy (36431) Comments: PATIENT WAS FASTINGPERFORMED BY: LabCo Kiqpmu0310 [address] [id number] Vitamin D, 25-Hydroxy 31.2 ng/mL (Normal) Range: 30.0-100.0 Comments: Vitamin D deficiency has been defined by the [place] of[place]icine and an Endocrine Society practice guideline as alevel of serum 25-OH vitamin D less than 20 ng/mL (1,2).The Endocrine Society went on to further define vitamin Dinsufficiency as a level between 21 and 29 ng/mL (2).1. IOM ([place] of [employer]). 2010. Dietary reference intakes for calcium and D. [place]: The National Academies Press.2. Delma MF, Mckenna ABDALLA, Dane MACKENZIE, et al. Evaluation, treatment, and prevention of vitamin D deficiency: an Endocrine Society clinical practice guideline. JCEM. 2010; 96(7):1911-30. :31 TSH (69944) Comments: PATIENT WAS FASTINGPERFORMED BY: [facility] Xxblfh95[address] [id number] TSH 4.190 {uIU/mL} (Normal) Range: 0.450-4.500 :15 HgA1C , Office (19192) HgA1C , Office 6.4 % (Normal) Range: 4.6 - 7.1 :15 Blood Glucose , Office (95869) Blood Glucose , Office 141 (Normal) :19 [...] M.D.October 02, 2012 at 9:24 :48 PM [id number] Signed RB/RB If you are the referring physician and would like to consult with theradiologist who provided this interpretation, please contact Mame Mario at . If this radiologist is unavailable, you will bedirected to another radiologist to assist. If you are a patient with a question regarding this report, pleasecontactyour referring physician hari benítez. Professional Interpretation Provided By: poLight, Phone , These documents contain legally protected [...] on 10/02/122128 Sign by: Keith Crocker DO 07-Whs-21588:55 Vitamin D Hydroxy (68045) Comments: PATIENT NOT FASTINGPERFORMED BY: LabCoSt. Francis Medical CenterTujbpe24[address] [id number] Information: [id number] Vitamin D, 25-Hydroxy 39.5 ng/mL (Normal) Range: 30.0-100.0 Comments: Vitamin D deficiency has been defined by the [place] of[place]icine and an Endocrine Society practice guideline as alevel of serum 25-OH vitamin D less than 20 ng/mL (1,2).The Endocrine Society went on to further define vitamin Dinsufficiency as a level between 21 and 29 ng/mL (2).1. IOM ([place]). 2010. Dietary reference intakes for [...] Valenzuela M.D.September 17, 2012 at 9:02:07 AM [id number] Signed GP/GP If you are the referring physician and would like to consult with theradiologist damaso davenport provided this interpretation, please contact Mame Mccoy at [phone]. If this radiologist is unavailable, youwill be directed to another radiologist to assist. If you are a patient wi th a question regarding this report, pleasecontactyour referring physician directly. Professional Interpretation Provided By: poLight, Phone , These documents contain l egally [...] Range: 211-946 7:31 (Normal) Comments: Performed at: [address] [id number] Director: Demarco Mccormack PhD, Phone: [phone] 17-Sep-2012 BID 0.10 mg/dL Range: 0.00-0.30 7:31 (Normal) 40-Rbc-23062:31 CBCMD ANC 3.6 3/uL (Normal) Range: 2.0-7.7 [...] IMPAIRED HOMEOSTASIS per A.D.A. criteria. :31 [facility] Note {CFU/mL} (Normal) Comments: COLONY COUNT [...] Simpson M.D.September 13, 2012 at 2:32:10 PM [id number] Signed DL/DL If you are the referring physician and would like to consult with theradiologist who provided this interpretation, please co ntact Mame Lancaster at [phone]. If this radiologist is unavailable, youwillbe directed to another radiologist to assist. If you are a patient with a question regarding this report, pleasecont actyour referring physician directly. Professional Interpretation Provided By: poLight, Phone , These documents contain legally protected [...] 09/13/12 1437 Sign by: Theo Simpson MD 10-Fse-94171:36 THYROID Radiology Report See Note (Normal) Comments: [...] Valenzuela M.D.September 13 13 at 2:58:06 PM [id number] Signed GP/GP If you are the referring physician and would like to consult with theradiologist who provided this interpretation, please contact Brown chaidez M.D. at [phone]. If this radiologist is unavailable, youwill be directed to another radiologist to assist. If you are a patient with a question regarding this report, pleasecontactyour refer ring physician directly. Professional Interpretation Provided By: poLight, Phone , These documents contain legally protected [...] on 09/13/12 1503 Sign by: Nicolas ARAGON,Florian 14-Uaq-66101:28 CRE Comments: CALL 8665 WITH RESULTSRESULTS CALLED TO DEBBIE 09/13/12 0801 AURA DIAZ.REPORT READ BACK BY SAME . GFR 105 mL/min (Normal) GFRAA 127 mL/min (Normal) CREAT 0.6 mg/dL (Normal) Range: 0.6-1.0 :23 URINE HANSA CULTURE-JEWELS COL Comments: PATIENT NOT FASTINGPERFORMED BY: LabCoSt. Francis Medical CenterPlroeo47[address] [id number] Information: SRC:UR [id number] COUNT (35797) Result 1 NG36 (Normal) Comments: No growth in 36 - 48 hours. Urine Culture,Comprehensive Final report (Normal) :39 Urinalysis, Office (33857) UA - BILIRUBIN Negative (Normal) UA - BLOOD Non Hemolyzed Trace (Normal) UA - GLUCOSE Negative (Normal) UA - KETONES Negative mg/dL (Normal) UA - LEUKOCYTE ESTERASE Negative (Normal) UA - NITRITE Negative (Normal) UA - PH 6.5 (Normal) UA - PROTEIN Negative mg/dL (Normal) UA - SPECIFIC GRAVITY 1.015 (Normal) URINE UROBILINGN JEWELS TIMED Normal mg/dL (Normal) :35 HgA1C , Office (41850) HgA1C , Office 6.3 % (Normal) Range: 4.6 - 7.1 35-Kfj-75078:35 Blood Glucose , Office (26838) Blood Glucose , Office 143 (Normal) :54 Comp. Metabolic Panel (14) Comments: PATIENT WAS FASTINGPERFORMED BY: CLARITA UpEnergySt. Francis Medical CenterSdpnef24[address] [id number] Information: 07/08@830AM 07/09@830AM ALT (SGPT) 11 [iU]/L [...] Creatinine Clearance Comments: PATIENT WAS FASTINGPERFORMED BY: PuzzliumMunson Healthcare [facility]6[address] [id number] Creatinine Clearance 70 mL/min (Abnormal) Range: 88-128 Comments: The above range is based on 1.73 square meter average body surfacearea. Creatinine, Ur 24hr 777.0 {mg/24_hr} (Abnormal) Range: 800.0-1800.0 Creatinine, Urine 37.9 mg/dL (Normal) Range: 15.0-278.0 :54 Lipid Panel With LDL/HDL Comments: PATIENT WAS FASTINGPERFORMED BY: [employer] Ruqhzh2073 Doyle EntrecardNovant Health New [facility]opedic [facility] [id number] Ratio LDL/HDL Ratio 2.6 {ratio_units} (Normal) Range: [...] Qn, 24-Hr Comments: PATIENT WAS FASTINGPERFORMED BY: [employer] Xgpgez8639 Doyle EntrecardNovant Health New [facility]opedic [facility] [id number] Urine Prot,24hr calculated <30.8 {mg/24_hr} Range: 30.0-150.0 (Normal) Protein,Total,Urine <1.5 mg/dL (Normal) Range: 0.0-15.0 Comments: Verified by repeat analysis TSH 2.550 {uIU/mL} Comments: PATIENT WAS FASTINGPERFORMED BY: [employer] Xqcxep7875 [address] [id number] :54 (Normal) Range: 0.450-4.500 Vitamin B12 271 pg/mL (Normal) Comments: PATIENT WAS FASTINGPERFORMED BY: [employer] Gzciiq8268 [address] [id number] :54 Range: 211-946 :08 CBC WITH MANUAL DIFF Comments: PATIENT NOT FASTINGPERFORMED BY: [employer] Nvxpud9305 Doyle CemmerceFormerly [facility] [id number] Information: [id number] (35591) Immature Grans (Abs) 0.0 {x10E3/uL} (Normal) Range: [...] 3.77-5.28 WBC 4.0 {x10E3/uL} (Normal) Range: 4.0-10.5 1-Bbr-483880:01 FECAL OCCULT- Tubes sent home (87392) FECAL OCCULT HGB ASSAY, QUAL, 1-3 SIMULTANEOU [...] biopsy of a clinically suspiciousabno rmality. Signed:Florian Valenzueal M.D.April 30, 2012 at 8:16:04 AM [id number] Signed GP/GP If you are the referring physician and would like to consult with theradiologist who prov ided this interpretation, please contact Mame Mccoy at [phone]. If this radiologist is unavailable, youwill be directed to another radiologist to assist. If you are a patient with a qu estion regarding this report, pleasecontactyour referring physician directly. Professional Interpretation Provided By: poLight, Phone , These documents contain legally protected [...] by: Nicolas ARAGON,Florian :44 HgA1C , Office (48488) HgA1C , Office 6.3 % (Normal) Range: 4.6 - 7.1 :44 Blood Glucose , Office (08063) Blood Glucose , Office 150 (Normal) Comments: has part of a cinnamon bun for breakfast :52 Microscopic Examination Comments: PATIENT WAS FASTINGPERFORMED BY: LabZambikes MalawiSt. Francis Medical CenterUjhurq4286 [address] [id number] Bacteria None seen (Normal) Mucus Threads Present (Normal) Epithelial Cells (non renal) 0-10 {/hpf} (Normal) Range: 0 - 10 RBC 0-3 {/hpf} (Normal) Range: 0 - 3 WBC 0-5 {/hpf} (Normal) Range: 0 - 5 :52 CBC WITH MANUAL DIFF Comments: PATIENT WAS FASTINGPERFORMED BY: LabPower Electronics6370 [facility] CenterTrivopFormerly [facility] [id number] Information: [id number] (85395) Immature Grans (Abs) 0.0 {x10E3/uL} (Normal) Range: [...] (Normal) Range: 4.0-10.5 :52 URINALYSIS, W/ MICRO (32195) Comments: PATIENT WAS FASTINGPERFORMED BY: [employer]igo [employer] [address] [id number] Microscopic Examination See below: (Normal) Nitrite, Urine Negative (Normal) Urobilinogen,Semi-Qn 1.0 mg/dL (Normal) Range: 0.0-1.9 Bilirubin Negative (Normal) Occult Blood Negative (Normal) Ketones Negative (Normal) Glucose Negative (Normal) Protein 2+ (Abnormal) WBC Esterase Negative (Normal) Appearance Clear (Normal) Urine-Color Yellow (Normal) pH 7.0 (Normal) Range: 5.0-7.5 Specific [place] 1.029 (Normal) Range: 1.005-1.030 :52 TSH (84145) Comments: PATIENT WAS FASTINGPERFORMED BY: UnigoSt. Francis Medical CenterCeevjl0198 [address] [id number] TSH 2.060 {uIU/mL} (Normal) Range: 0.450-4.500 :52 METABOLIC PANEL, COMPREHENSIVE Comments: PATIENT WAS FASTINGPERFORMED BY: UnigoSt. Francis Medical CenterBoyudi0048 [address] [id number] (89464) ALT (SGPT) 16 [iU]/L (Normal) Range: 0-40 [...] mg/dL (Abnormal) Range: 65-99 :52 LIPID PANEL (27333) Comments: PATIENT WAS FASTINGPERFORMED BY: [employer] Social MediaFormerly [facility] [id number] LDL/HDL Ratio 2.2 {ratio_units} (Normal) Range: 0.0-3.2 [...] CREATININE RATIO Comments: PATIENT WAS FASTINGPERFORMED BY: VMware70 PingCo.comFormerly [facility] [id number] (13965) AND (42840) Microalb/Creat Ratio 822.1 {mg/g_creat} (Abnormal) Range: 0.0-30.0 Microalbumin, Urine 844.3 ug/mL (Abnormal) Range: 0.0-17.0 Creatinine, Urine 102.7 mg/dL (Normal) Range: 15.0-278.0 23-Umc-200947:18 HgA1C , Office (02255) HgA1C , Office 6.3 % (Normal) Range: 4.6 - 7.1 17-Kby-906944:16 CHEST WITH CONTRAST Radiology Report See Note [...] radiologist regarding this report, please call our 16N1vdqstqu line @ Dictated on 12/14/11 1033 by Nicolas ARAGON,[facility] bed on 12/14/11 1438 by ITS IMPORTSign by Florian Valenzuela MD on 12/14/11 1439 Sign by: Florian Valenzuela MD 05-Dec-20119:19 CBC WITH MANUAL DIFF Comments: PATIENT WAS FASTINGPERFORMED BY: LabCoSt. Francis Medical CenterTzlsff3544 [address] [id number] Information: [id number] (39385) Immature Grans (Abs) 0.0 {x10E3/uL} (Normal) Range: [...] PANEL, COMPREHENSIVE Comments: PATIENT WAS FASTINGPERFORMED BY: Inaura6[address] [id number] (46816) ALT (SGPT) 14 [iU]/L (Normal) Range: 0-40 [...] mg/dL (Abnormal) Range: 65-99 :19 LIPID PANEL (95916) Comments: PATIENT WAS FASTINGPERFORMED BY: Panaya70 [address] [id number]; appt 12-21-11 LDL/HDL Ratio 3.0 {ratio_units} Range: [...] {units} (Normal) Comments: PATIENT NOT FASTINGPERFORMED BY: Midatechlin6[address] [id number] BY: UpEnergy[address] [id number] 10:24 Range: 0-19 Comments: Negative <20 Weak positive 20 - 39 Moderate positive 40 - 59 Strong positive >59 4-Kdi-842000:24 EBV Panel (16896) Comments: PATIENT NOT FASTINGPERFORMED BY: Midatechlin6[address] [id number] BY: [employer] [address] [id number] Interpretation: SPRCS (Normal) Comments: EBV Interpretation Chart [...] <0.9 Equivocal 0.9 - 1.0 Positive >1.0 2-Axi-490403:24 SED RATE ERYTHROCYTE Comments: PATIENT NOT FASTINGPERFORMED BY: [place] 4450670 [address] [id number] BY: [address] [id number] (64204) Sedimentation Rate-Westergren 6 mm/h (Normal) Range: 0-40 9-Mqu-744286:24 C-REACTIVE PROTEIN (96573) Comments: PATIENT NOT FASTINGPERFORMED BY: [place] 4450670 [address] [id number] BY: [address] [id number] C-Reactive Protein, Quant 2.1 mg/L (Normal) Range: 0.0-4.9 3-Czy-116178:24 TSH (27187) Comments: PATIENT NOT FASTINGPERFORMED BY: [address] [id number] BY: [address] [id number] TSH 1.610 {uIU/mL} (Normal) Range: 0.450-4.500 7-Byb-390075:24 RHEUMATOID FACTOR-QUANT Comments: PATIENT NOT FASTINGPERFORMED BY: [place] 4450670 [address] [id number] BY: [address] [id number] (87224) RA Latex Turbid. 8.4 {IU/mL} (Normal) Range: 0.0-13.9 5-Cuk-269417:24 [place] (ANTINUCLEAR ANTIBODY) Comments: PATIENT NOT FASTINGPERFORMED BY: [place] 4450670 [address] [id number] BY: LabCoAmanda [place] 706777 [facility] [id number] (30622) [place] Direct Negative (Normal) 7-Shb-409172:24 CBC WITH MANUAL DIFF Comments: PATIENT NOT FASTINGPERFORMED BY: [facility] Qqemar4370 DoyleMiss[facility] Center [id number] BY: LabCo[address] [id number] Inf ormation: [id number] (99030) Immature Grans (Abs) 0.0 {x10E3/uL} (Normal) Range: [...] 3.80-5.10 WBC 4.6 {x10E3/uL} (Normal) Range: 4.0-10.5 0-Boo-108168:24 METABOLIC PANEL, Comments: PATIENT NOT FASTINGPERFORMED BY: CB [facility] Useely2724 Vivek NunnAtrium Health Pineville Rehabilitation Hospitalhadley [place] [id number] BY: BN [facility] Ipotayuoiu0576 [facility] [id number]; appt 12-21-11 COMPREHENSIVE (79629) ALT (SGPT) 13 [iU]/L (Normal) Range: 0-40 [...] Glucose, Serum 118 mg/dL (Abnormal) Range: 65-99 3-Nfy-695700:51 HANSA CULTURE-OTHER (88041) Comments: PATIENT NOT FASTINGPERFORMED BY: CLARITA LabCoSt. Francis Medical CenterBsmesl1125 Vivek [facility] [id number] Information: SRC:AIDAN [id number] Result 1 RRF (Normal) Comments: Routine respiratory vicente Upper Respiratory Culture Final report (Normal) 07-Nov-20119:19 Rapid Strep Test, Office (75951) Rapid Strep Test, Office Negative (Normal) 55-Dwb-851495:16 HgA1C , Office (92143) HgA1C , Office 6.1 % (Normal) Range: 4.6 - 7.1 99-Oxu-768175:16 Blood Glucose , Office (37226) Blood Glucose , Office 141 (Normal) 82-Wkm-323795:10 ABDOMEN/PELVIS WITH CONTRAST Radiology Report See Note [...] 1410 Si gn by: Florian Valenzuela MD 31-Btx-070551:39 CHEST WITH CONTRAST Radiology Report See Note [...] noted, distal end at the level of I0slkah. Normal osseous structures. There is limited visualization of the liver, spleen w ithout ademonstratedabnormality. IMPRESSION:No pulmonary embolism. No aortic dissection. Nonspecific two to 3-mmsubtle nodular density at right upper lobe, image 145 probably representatypically atelec tatic change. Dictated on 04/21/11 1104 by Leonard Odell MDranscribed on 04/22/11 1013 by ITS IMPORTSign by Jordan Odell MD on 04/22/11 1014 Sign by: Jordan Odell MD 23-Jgl-955401:29 MICROALBUMIN: CREATININE RATIO Comments: PATIENT WAS FASTINGPERFORMED BY: [facility] [id number] (72569) AND (61237) Microalb/Creat Ratio 11.8 {mg/g_creat} (Normal) Range: 0.0-30.0 Microalbumin, Urine 7.3 ug/mL (Normal) Range: 0.0-17.0 Creatinine, Urine 61.9 mg/dL (Normal) Range: 15.0-278.0 :29 LIPID PANEL (74424) Comments: PATIENT WAS FASTINGPERFORMED BY: Inaura6[address] [id number]; appt 07/25/11 VLDL Cholesterol Peg VLDLCH mg/dL [...] MANUAL DIFF Comments: PATIENT WAS FASTINGPERFORMED BY: Inaura6[address] [id number] Information: [id number] (63638) Immature Grans (Abs) 0.0 {x10E3/uL} (Normal) Range: [...] 3.80-5.10 WBC 5.7 {x10E3/uL} (Normal) Range: 4.0-10.5 21-Ipw-906915:29 METABOLIC PANEL, COMPREHENSIVE Comments: PATIENT WAS FASTINGPERFORMED BY: LabCoSt. Francis Medical CenterYdsdtz1303 [address] [id number] (23428) ALT (SGPT) 12 [iU]/L (Normal) Range: 0-40 [...] Glucose, Serum 120 mg/dL (Abnormal) Range: 65-99 48-Arg-74517:46 THYROID Radiology Report See Note (Normal) Comments: [...] on 03/28/11 1149 Sign by: Jose R ARAGON,[facility] :10 CHEST, PA AND LATERAL [...] 1019 Sign by: ___ Florian Valenzuela MD 05-Sfw-63193:47 SOFT TISSUE NECK WITH CONTRAST Radiology Report [...] malformation. Normal bilateral parotid glands. Normal bilateral systems programmer analyst spaces.Normal bilateral parapharyngeal spaces. Normal bilateral carotid [...] 01/24/11 1017 Sign by: Florian Valenzuela MD 59-Nww-62472:15 CBC WITH MANUAL DIFF Comments: PATIENT WAS FASTINGPERFORMED BY: LabMunson Healthcare [facility] Hospital6[address] [id number] Information: [id number] (19933) Immature Grans (Abs) 0.0 {x10E3/uL} (Normal) Range: [...] 3.80-5.10 WBC 7.0 {x10E3/uL} (Normal) Range: 4.0-10.5 32-Dwd-09368:15 METABOLIC PANEL, COMPREHENSIVE Comments: PATIENT WAS FASTINGPERFORMED BY: LabCoSt. Francis Medical CenterPokmyn0348 [address] [id number] (84567) ALT (SGPT) 10 [iU]/L (Normal) Range: 0-40 [...] mg/dL (Abnormal) Range: 65-99 :15 LIPID PANEL (69740) Comments: PATIENT WAS FASTINGPERFORMED BY: Midatechlin6370 [address] [id number]; has f/u 04/20/11 LDL/HDL Ratio 2.5 {ratio_units} (Normal) Range: 0.0-3.2 LDL Cholesterol Calc 94 mg/dL (Normal) Range: 0-99 VLDL Cholesterol Peg 46 mg/dL (Abnormal) Range: 5-40 HDL Cholesterol 37 mg/dL (Abnormal) Comments: According to ATP-III Guidelines, HDL-C >59 mg/dL is considered anegative risk factor for CHD. Triglycerides 230 mg/dL (Abnormal) Range: 0-149 Cholesterol, Total 177 mg/dL (Normal) Range: 100-199 :15 HgA1C , Office (01110) Comments: PATIENT WAS FASTINGPERFORMED BY: Labdocumistic Osvqpb4639 [address] [id number] Glycohemoglobin (GHb), Total 7.7 % (Normal) Comments: Diabetic Adult <9.0 Healthy Adult 3.9 - 7.3 (DCCT/NGSP) Current ADA guide lines recommend a treatment goal of <7.0% HgbA1c for diabetic patients, which corresponds to a <9.0% Glycohemoglobin result with this method. :50 Blood Glucose , Office (72693) Blood Glucose , Office 160 (Normal) :48 [...] = 500 mg/dL :33 HgA1C , Office (86943) HgA1C , Office 6.5 % (Normal) Range: 4.6 - 7.1 :33 Blood Glucose , Office (56851) Blood Glucose , Office 154 (Normal) 14-Cix-394223:11 Influenza A, H1N1, RT PCR Comments: PERFORMED BY: [employer] [id number] BY: [employer] [id number] Information: SRC:NL Subtype Novel H1N1 by Negative (Normal) PCR Type Influenza A by Negative (Normal) PCR Viral FLUABN (Normal) Comments: PERFORMED BY: [employer] [id number] BY: [employer] [id number] :11 Culture,Rapid,Influenz Comments: Negative:No Influenza A or B detected. a :04 Urinalysis, Office (88021) UA - BILIRUBIN Negative (Normal) UA - BLOOD Negative (Normal) UA - GLUCOSE Negative (Normal) UA - KETONES Negative mg/dL (Normal) UA - LEUKOCYTE ESTERASE Negative (Normal) UA - NITRITE Negative (Normal) UA - PH 6.0 (Normal) UA - PROTEIN Negative mg/dL (Normal) UA - SPECIFIC GRAVITY 1.025 (Normal) URINE UROBILINGN JEWELS TIMED Normal mg/dL (Normal) :59 Vitamin D Hydroxy (55062) Comments: PATIENT WAS FASTINGPERFORMED BY: [employer] [id number] Vitamin D, 25-Hydroxy 32.0 ng/mL (Normal) Range: 32.0-100.0 Comments: Recent studies consider the lower limit of 32.0 ng/mL to be athreshold for optimal health.Jose MAYA. J Nutr. 2004;135(2):317-22. 4:59 METABOLIC PANEL, Comments: PATIENT WAS FASTINGPERFORMED BY: LabCoSt. [facility] Medical CenterWirxps[address] [id number] Information: [id number] COMPREHENSIVE (27423) ALT (SGPT) 9 [iU]/L (Normal) Range: 0-40 [...] mg/dL (Abnormal) Range: 65-99 :59 LIPID PANEL (48537) Comments: PATIENT WAS FASTINGPERFORMED BY: Inaura[address] [id number] LDL Cholesterol Calc 87 mg/dL (Normal) Range: [...] MANUAL DIFF Comments: PATIENT WAS FASTINGPERFORMED BY: [employer] [id number] Information: ADD [id number] AND DRAW FEE [id number] (90415) Immature Grans (Abs) 0.0 {x10E3/uL} (Normal) Range: [...] CREATININE RATIO Comments: PATIENT WAS FASTINGPERFORMED BY: UnigoSt. Francis Medical CenterYpddcl4[address] [id number] (22843) AND (57010) Creatinine, Urine 87.5 mg/dL (Normal) Range: 15.0-278.0 Microalb/Creat Ratio 4.5 {mg/g_creat} (Normal) Range: 0.0-30.0 Microalbumin, Urine 3.9 ug/mL (Normal) Range: 0.0-17.0 :57 METABOLIC PANEL, COMPREHENSIVE Comments: PATIENT WAS FASTINGPERFORMED BY: UpEnergySt. Francis Medical CenterPrrzex[address] [id number] (90608) ALT (SGPT) 12 [iU]/L (Normal) Range: 0-40 [...] mg/dL (Abnormal) Range: 65-99 :57 LIPID PANEL (39446) Comments: PATIENT WAS FASTINGPERFORMED BY: [employer] Duwiqw[address] [id number] LDL Cholesterol Calc 138 mg/dL (Abnormal) Range: 0-99 LDL/HDL Ratio 2.9 {ratio_units} (Normal) Range: 0.0-3.2 HDL Cholesterol 47 mg/dL (Normal) Comments: According to ATP-III Guidelines, HDL-C >59 mg/dL is considered anegative risk factor for CHD. VLDL Cholesterol Peg 29 mg/dL (Normal) Range: 5-40 Cholesterol, Total 214 mg/dL (Abnormal) Range: 100-199 Triglycerides 147 mg/dL (Normal) Range: 0-149 :05 HgA1C , Office (33528) HgA1C , Office 6.5 % (Normal) Range: 4.6 - 7.1 :05 Blood Glucose , Office (04551) Blood Glucose , Office 140 (Normal) :35 MICROALBUMIN: CREATININE RATIO Comments: PATIENT WAS FASTINGPERFORMED BY: LabCoSt. Francis Medical CenterRoyaqc[address] [id number] (13134) AND (04182) Creatinine, Urine 94.9 mg/dL (Normal) Range: 15.0-278.0 Microalb/Creat Ratio 10.7 {mg/g_creat} (Normal) Range: 0.0-30.0 Microalbumin, Urine 10.2 ug/mL (Normal) Range: 0.0-17.0 :35 CBC WITH MANUAL DIFF Comments: PATIENT WAS FASTINGPERFORMED BY: PuzzliumCoSt. Francis Medical CenterXjdgyr[address] [id number] Information: [id number] (83056) Baso (Absolute) 0.0 {x10E3/uL} (Normal) Range: 0.0-0.2 [...] COMPREHENSIVE Comments: PATIENT WAS FASTINGPERFORMED BY: LabCoSt. [facility] Medical CenterBwxcxi[address] [id number] (97803) ALT (SGPT) 12 [iU]/L (Normal) Range: 0-40 [...] mg/dL (Abnormal) Range: 65-99 :35 LIPID PANEL (32113) Comments: PATIENT WAS FASTINGPERFORMED BY: [facility] Gcdyxx[address] [place] [id number] LDL Cholesterol Calc 103 mg/dL (Abnormal) Range: 0-99 LDL/HDL Ratio 3.0 {ratio_units} (Normal) Range: 0.0-3.2 HDL Cholesterol 34 mg/dL (Abnormal) Comments: According to ATP-III Guidelines, HDL-C >59 mg/dL is considered anegative risk factor for CHD. VLDL Cholesterol Peg 38 mg/dL (Normal) Range: 5-40 Cholesterol, Total 175 mg/dL (Normal) Range: 100-199 Triglycerides 190 mg/dL (Abnormal) Range: 0-149 :31 HgA1C , Office (43318) HgA1C , Office 6.2 % (Normal) Range: 4.6 - 7.1 :31 Blood Glucose , Office (96622) Blood Glucose , Office 113 (Normal) :03 BILAT SCRN DIGITAL & CAD Radiology Report See Note (Normal) Comments: Exam Number: [id number] MAMMOGRAPHY - BILATERAL SCREENING INDICATION:Routine annual screening [...] of attaching a ResultCode to this exam.ADDENDUM: [id number] HPBI/MDS Reported By: BRIAN JIMENEZ M.D. :02 DEXA BONE DENSITY STUDY () Radiology Report See Note (Normal) Comments: Exam Number: [id number] CLINICAL:Assess bone density EXAMINATION:DUAL ENERGY X-RAY ABSORPTIOMETRY / DEXA. TECHNIQUE:Bone Density Measurements (BMD) of left hip and left forearm wereobtained using a Step-In dual energy scanner. COMPARISON:A report from 2001 [...] NIH Osteoporosis and Related Bone Diseases http://www.osteo.org2. Licensed Physical Therapy Assistant ational Society for Clinical Densitometryhttp://www.iscd.org3. National Osteoporosis Foundation http://www.nof.org Reported By: NELLY LINCOLN M.D. :11 HgA1C , Office (61285) HgA1C , Office 6.2 % (Normal) Range: 4.6 - 7.1 :11 Blood Glucose , Office (80316) Blood Glucose , Office 186 (Normal) :25 TSH (06856) Comments: PATIENT WAS FASTINGPERFORMED BY: [facility] Cwakas[address] [id number] TSH 2.340 {uIU/mL} (Normal) Range: 0.450-4.500 :25 METABOLIC PANEL, COMPREHENSIVE Comments: PATIENT WAS FASTINGPERFORMED BY: [facility] Pzktrw[address] [id number] (93423) ALT (SGPT) 10 [iU]/L (Normal) Range: 0-40 [...] MANUAL DIFF Comments: PATIENT WAS FASTINGPERFORMED BY: [facility] [id number] Information: ADD DRAW FEE [id number] AND J0 9738 (96775) Baso (Absolute) 0.0 {x10E3/uL} (Normal) Range: 0.0-0.2 [...] {x10E3/uL} (Normal) Range: 4.0-10.5 :25 LIPID PANEL (14363) Comments: PATIENT WAS FASTINGPERFORMED BY: [facility] [id number] LDL/HDL Ratio 2.6 {ratio_units} (Normal) Range: 0.0-3.2 Cholesterol, Total 183 mg/dL (Normal) Range: 100-199 HDL Cholesterol 34 mg/dL (Abnormal) Comments: According to ATP-III Guidelines, HDL-C >59 mg/dL is considered anegative risk factor for CHD. LDL Cholesterol Calc 90 mg/dL (Normal) Range: 0-99 Triglycerides 295 mg/dL (Abnormal) Range: 0-149 VLDL Cholesterol Peg 59 mg/dL (Abnormal) Range: 5-40 :02 HgA1C , Office (43140) HgA1C , Office 6.2 % (Normal) Range: 4.6 - 7.1 :02 Blood Glucose , Office (63392) Blood Glucose , Office 152 (Normal) :02 HEPATIC FUNCTION PANEL Comments: PATIENT WAS FASTINGPERFORMED BY: UpEnergySt. Francis Medical CenterKfivve[address] [id number] (53399) Alkaline Phosphatase, S 63 [iU]/L (Normal) Range: 25-165 ALT (SGPT) 13 [iU]/L (Normal) Range: 0-40 AST (SGOT) 14 [iU]/L (Normal) Range: 0-40 Bilirubin, Direct 0.10 mg/dL (Normal) Range: 0.00-0.40 Bilirubin, Total 0.4 mg/dL (Normal) Range: 0.1-1.2 Albumin, Serum 4.6 g/dL (Normal) Range: 3.6-4.8 Protein, Total, Serum 7.0 g/dL (Normal) Range: 6.0-8.5 :02 LIPID PANEL (34239) Comments: PATIENT WAS FASTINGPERFORMED BY: [facility] [id number] LDL Cholesterol Calc 114 mg/dL (Abnormal) Range: 0-99 LDL/HDL Ratio 3.6 {ratio_units} (Abnormal) Range: 0.0-3.2 HDL Cholesterol 32 mg/dL (Abnormal) Comments: According to ATP-III Guidelines, HDL-C >59 mg/dL is considered anegative risk factor for CHD. Triglycerides 319 mg/dL (Abnormal) Range: 0-149 VLDL Cholesterol Peg 64 mg/dL (Abnormal) Range: 5-40 Cholesterol, Total 210 mg/dL (Abnormal) Range: 100-199 :45 HgA1C , Office (22280) HgA1C , Office 6.2 % (Normal) Range: 4.6 - 7.1 :45 Blood Glucose , Office (63810) Blood Glucose , Office 193 (Normal) :34 MICROALBUMIN: CREATININE RATIO Comments: PATIENT WAS FASTINGPERFORMED BY: CLARITA DonorPathlin[address] [id number] (22812) AND (10383) Creatinine, Urine 126.3 mg/dL (Normal) Range: 15.0-278.0 Microalb/Creat Ratio 7.6 {mg/g_creat} (Normal) Range: 0.0-30.0 Microalbumin, Urine 9.6 ug/mL (Normal) Range: 0.0-17.0 :34 METABOLIC PANEL, COMPREHENSIVE Comments: PATIENT WAS FASTINGClinical Information: ADD [id number] BY: [employer] [id number] (18482) A/G Ratio 1.7 (Normal) Range: 1.1-2.5 Albumin, [...] FUNCTION PANEL Comments: PATIENT WAS FASTINGPERFORMED BY: [employer] [id number] (75550) Bilirubin, Direct 0.08 mg/dL (Normal) Range: 0.00-0.40 :34 LIPID PANEL (57116) Comments: PATIENT WAS FASTINGPERFORMED BY: [employer] LabZambikes MalawiSt. Francis Medical CenterYzkslt[address] [id number] Cholesterol, Total 186 mg/dL (Normal) Range: 100-199 HDL Cholesterol 38 mg/dL (Abnormal) Comments: According to ATP-III Guidelines, HDL-C >59 mg/dL is considered anegative risk factor for CHD. LDL Cholesterol Calc 102 mg/dL (Abnormal) Range: 0-99 LDL/HDL Ratio 2.7 {ratio_units} (Normal) Range: 0.0-3.2 Triglycerides 232 mg/dL (Abnormal) Range: 0-149 VLDL Cholesterol Peg 46 mg/dL (Abnormal) Range: 5-40 13-Vmf-194445:36 HgA1C , Office (13818) HgA1C , Office 6.3 % (Normal) Range: 4.6 - 7.1 41-Qfp-039452:36 Blood Glucose , Office (98160) Blood Glucose , Office 129 (Normal) 2-Uxb-171575:12 BILAT SCRN DIGITAL & CAD Radiology Report See Note (Normal) Comments: Exam Number: [id number] MAMMOGRAM, BILATERAL SCREENING DIGITAL AND CAD HISTORY: [...] 1992 (MQSA). The mammograms werealso examined w sones computer-aided detection software ([employer], [employer], [employer] Reported By: BRIAN JIMENEZ M.D. 29-Lcb-791342:57 HgA1C , Office (39613) HgA1C , Office 6.3 % (Normal) Range: 4.6 - 7.1 43-Zeh-361976:57 Blood Glucose , Office (91602) Blood Glucose , Office 111 (Normal) :40 [...] for patient's is the eGFRmultiplied by 1.212. [facility] Laboratory uses the abbreviated Modification [...] Disease W/O Kidney Disease>/= 90 Stage One Owtjwl96 - 89 Stage Two Suspect Decreased GFR30 [...] (Normal) Range: 5-40 :30 HgA1C , Office (27209) HgA1C , Office 6.2 % (Normal) Range: 4.6 - 7.1 :30 Blood Glucose , Office (60636) Blood Glucose , Office 167 (Normal) :33 [...] (Normal) Range: 211-911 :51 HgA1C , Office (67894) HgA1C , Office 5.9 % (Normal) Range: 4.6 - 7.1 57-Ceu-411193:51 Blood Glucose , Office (06423) Blood Glucose , Office 113 (Normal) :49 [...] >240 mg/dL High Risk :01 Urinalysis, Office (15010) UA - BILIRUBIN Negative (Normal) UA - [...] Comments: GLU,2HPPG 75gm GLUC PPG GLUP from 0603:I72303M. 01-Jcg-867844:44 CHEST, PA AND LATERAL Radiology Report See Note (Normal) Comments: Exam Number: [id number] PA AND LATERAL CHEST HISTORY Being done for chest pain. FINDINGSCardiac configuration is upper limits of normal to mildly enlarged.There is mild elevation, left hemid iaphragm. No acute infiltrate,effusion, or pneumothorax is identified. There is moderate spurformation noted in the lower dorsal spine. IMPRESSION1. A number of chronic changes.2. No acute infiltrate. Reported By: CADE MERCER M.D. 08-Bbg-522064:20 URINE HANSA CULTURE-IDENTIFICATN Comments: PATIENT NOT FASTINGClinical Information: ADD [id number] PERFORMED BY: LabCoSt. Francis Medical CenterCcgtvi[address] [id number] (30617) Antimicrobial MARY (Normal) Comments: S = Susceptible; [...] mL (Normal) Urine Final report Culture,Comprehensive (Normal) 93-Lzg-83500:00 CBC With Differential/Platelet Comments: PATIENT NOT FASTINGPERFORMED BY: [facility] Ftnfqe[address] [id number] Baso (Absolute) 0.1 {x10E3/uL} (Normal) Range: 0.0-0.2 [...] 11.7-15.0 WBC 6.0 {x10E3/uL} (Normal) Range: 4.0-10.5 03-Wxc-23001:00 Comp. Metabolic Panel (14) Comments: PATIENT NOT FASTINGPERFORMED BY: [facility] Fydfua[address] [id number] A/G Ratio 1.7 (Normal) Range: 1.1-2.5 Albumin, [...] Serum 116 mg/dL (Abnormal) Range: 65-99 If -Bahamian >60 mL/min (Normal) Range: 60-128 Comments: Note: [...] (Normal) Range: 0.34-4.82 :33 HgA1C , Office (92566) HgA1C , Office 5.2 % (Normal) Range: 4.6 - 7.1 :33 Blood Glucose , Office (99186) Blood Glucose , Office 172 (Normal) :08 FEMUR,2 VIEWS Radiology Report See Note (Normal) Comments: Exam Number: [id number] AP AND LATERAL LEFT TIBIA/FIBULA. HISTORYBeing done [...] Report See Note (Normal) Comments: Exam Number: [id number] AP AND LATERAL LEFT TIBIA/FIBULA. HISTORYBeing done [...] (Normal) Range: 0.34-4.82 :53 HgA1C , Office (30719) Comments: done-[facility] [place] HgA1C , Office 5.3 % (Normal) Range: 4.6 - 7.1 :53 Blood Glucose , Office (62738) Comments: done-[facility] [place] Blood Glucose , Office 94 (Normal) :55 [...] Range: 6.4-8.2 :18 Blood Glucose , Office (24461) Blood Glucose , Office 5.6 (Normal) :18 HgA1C , Office (91735) HgA1C , Office 142 % (Abnormal) Range: [...] Range: 6.4-8.2 :05 COMPLETE UA Comments: COMMENTS: [facility] [place]*: NOT APPLICABLE BACTERIA 0 [...] :00 AMIE 25 U/L (Normal) Comments: COMMENTS: [facility] DR Webster*: NOT APPLICABLE Range: 25-115 :00 CBCD Comments: COMMENTS: [facility] DR Webster*: NOT APPLICABLE BASO% 0.1 % [...] 11.6-14.6 WBC 5.3 K/mm3 (Normal) Range: 4.4-11.0 45-Zgo-580764:00 COMP METABOLIC Comments: COMMENTS: BED 7 DR [...] T PROT 8.0 g/dL (Normal) Range: 6.4-8.2 68-Lzj-002230:00 D BILI 0.14 mg/dL (Normal) Comments: COMMENTS: [...] mg/dL VLDL 50 mg/dL (Abnormal) Range: 5-40 8-Vwv-471091:02 URINALYSIS (08484) URINALYSIS Comments: uNABLE TO PUT RESULTS IN CORRECTLY- MCWYSJV-KKAOPMOHSIXD-NGTTUIUMDXX-NEGS.G.-1.171XXOAY-YHQMZEAVFO-8.0XGAAQXU-CIOYWZZCBCS-5.7DCDRAIDV-WEMEIUWCKEPIZBOSSG-AKMJC (Normal) :09 HgA1C , Office (34297) HgA1C , Office 5.4 % (Normal) Range: 4.6 - 7.1 :09 Blood Glucose , Office (75666) Blood Glucose , Office 161 (Normal) Plan [...] II, controlled, with no complications 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 : Reviewed News Correspondent Letter 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 Mixed hyperlipidemia : Cholesterol mgmt Indication: [...] B12 shots montly Indication: Macrocytosis 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 : Reviewed News Correspondent Letter 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 : Continue Current Prescription(s) 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 Diabetes mellitus type 2, uncontrolled, without [...] Pulmonary hypertension, moderate to severe : Reviewed News Correspondent Letter Indication: Pulmonary hypertension, moderate to severe [...] S/P laminectomy with spinal fusion : Reviewed News Correspondent Letter Indication: S/P laminectomy with spinal fusion Macrocytosis without anemia : Reviewed Lab Indication: Macrocytosis without anemia Diabetes mellitus type II, controlled, with no complications : Reviewed Diagnostic Tests Indication: Diabetes mellitus type II, controlled, with no complications S/P laminectomy with spinal fusion : Reviewed News Correspondent Letter Indication: S/P laminectomy with spinal fusion [...] pneumonia) CAP (community acquired pneumonia) : Reviewed News Correspondent Letter Indication: CAP (community acquired pneumonia) Sinusitis, bacterial : Eprescribed prescriptions (G8553) Indication: Sinusitis, bacterial Pulmonary hypertension, moderate to severe : Reviewed Diagnostic Tests Indication: Pulmonary hypertension, moderate to severe Nonsmoker : Eprescribed prescriptions (G8553) Indication: Nonsmoker Bronchitis : Reviewed Diagnostic Tests Indication: Bronchitis Bronchitis : Reviewed News Correspondent Letter Indication: Bronchitis Bronchitis : *Antibiotic Usage [...] : FOLLOW UP IN 3 DAYS with [facility] Indication: EDEMA, NOS Benign paroxysmal positional vertigo : Reviewed News Correspondent Letter Indication: Benign paroxysmal positional vertigo Acute [...] MONTHS Indication: Mixed hyperlipidemia Planned Observations TSH (87456)Indication: Diabetes mellitus type 2, uncontrolled, without complications On: 42 Request URINALYSIS, W/ MICRO (10103)Indication: Diabetes mellitus type 2, uncontrolled, without complications On: :42 Request MICROALBUMIN: CREATININE RATIO (99208) AND (64539)Indication: Diabetes mellitus type 2, uncontrolled, without complications On: :42 Request METABOLIC PANEL, COMPREHENSIVE (22865)Indication: Hypertensive heart disease without heart failure On: 0-Pwt-048576:42 Request LIPID PANEL (63672)Indication: Mixed hyperlipidemia On: :42 Request CBC W/AUTO DIFF WBC (60407)Indication: Hypertensive heart disease without heart failure On: 8-Xsr-599050:42 Request LIPID PANEL (84168)Indication: Diabetes mellitus type 2, uncontrolled, without complications On: 8-Etk-836948:25 Request CBC WITH MANUAL DIFF (37074)Indication: Elevated platelet count On: :11 Request LIPASE (16047)Indication: Flu-like symptoms On: 8-Qil-009017:53 Request Comments: stat POTASSIUM SERUM (19835)Indication: Hypokalemia On: :40 Request MAGNESIUM (97686)Indication: Hypomagnesemia On: 32-Xub-258317:40 Request Renal function Panel (18323)Indication: Hypokalemia On: 70-Txf-953920:48 Request POTASSIUM SERUM (82731)Indication: Hypokalemia (Renamed from Decreased potassium in the blood) On: 03-Nov-20169:06 Request POTASSIUM SERUM (29136)Indication: Hypokalemia (Renamed from Decreased potassium in the blood) On: 38-Sxs-134652:55 Request POTASSIUM SERUM (59335)Indication: Hypokalemia On: 8-Okq-805392:22 Request MAGNESIUM (34435)Indication: Hypokalemia On: 6-Wsn-394435:21 Request URINE HANSA CULTURE-JEWELS COL COUNT (69441)Indication: UTI (urinary tract infection), bacterial On: :54 Request MAGNESIUM (23050)Indication: Abdominal pain On: 74-Eqd-338655:45 Request Comments: do in 3 weeks CALCIFEDIOL (55809)Indication: Vitamin D deficiency On: 02-Wdl-516310:14 Request LIPID PANEL (48724)Indication: Mixed hyperlipidemia On: 61-Umy-428344:13 Request VITAMIN B12 AND FOLATES (19600)Indication: B12 deficiency anemia On: 43-Chi-226343:13 Request TSH (THYROID STIMULATING HORMONE) (53327)Indication: Thyroid Nodule On: :13 Request METABOLIC PANEL, COMPREHENSIVE (52507)Indication: Mixed hyperlipidemia On: :13 Request CBC WITH MANUAL DIFF (46697)Indication: Hypertensive heart disease without heart failure On: 87-Fld-989352:13 Request MICROALBUMIN: CREATININE RATIO (50551) AND (01892)Indication: Hypertensive heart disease without heart failure On: 75-Uyc-258072:13 Request MYOGLOBIN (82101)Indication: Sweating abnormality On: 45-Zyp-308371:11 Request CPK MB FRACTION (32385)Indication: Sweating abnormality On: 16-Ayg-968506:11 Request ASSAY, TROPONIN, QUANTITATIVE (aka Troponin I) (32948)Indication: Sweating abnormality On: 74-Sru-757084:11 Request METABOLIC PANEL, BASIC (29787)Indication: Hypokalemia (Renamed from Decreased potassium in the blood) On: 07-Qeo-389943:16 Request PARATHORMONE (33602)Indication: Hypocalcemia On: 18-Ksj-109825:23 Request Magnesium (42280)Indication: Hypokalemia (Renamed from Decreased potassium in the blood) On: 25-Jny-214520:22 Request CALCIUM, IONIZED (78731)Indication: Hypocalcemia On: 64-Tib-729481:21 Request VITAMIN B12 AND FOLATES (96264)Indication: Macrocytosis without anemia On: 91-Scp-130836:39 Request SMEAR+INTERP FLUOR STAIN (34661)Indication: Macrocytosis without anemia On: 74-Gak-333758:37 Request MICROALBUMIN: CREATININE RATIO (10302) AND (89029)Indication: Hypertensive heart disease without heart failure On: 10-Ybl-397892:16 Request CBC W/AUTO DIFF WBC (53955)Indication: Hypertensive heart disease without heart failure On: 06-Xey-351652:16 Request METABOLIC PANEL, COMPREHENSIVE (90476)Indication: Hypertensive heart disease without heart failure On: 23-Jlf-151284:16 Request LIPID PANEL (60688)Indication: Mixed hyperlipidemia On: 31-Mxu-079657:16 Request Vitamin D Hydroxy (24991)Indication: Vitamin D deficiency On: 48-Gwk-901403:15 Request VITAMIN B-12 (CYANOCOBALAMIN) (06469)Indication: B12 deficiency anemia On: 03-Yma-189530:15 Request METABOLIC PANEL, COMPREHENSIVE (29088)Indication: Fatigue On: :07 Request LIPID PANEL (37717)Indication: Mixed hyperlipidemia On: :07 Request VITAMIN B-12 (CYANOCOBALAMIN) (81355)Indication: B12 deficiency anemia On: :07 Request CBC (AUTO) (41513)Indication: B12 deficiency anemia On: :07 Request Vitamin D Hydroxy (89088)Indication: Vitamin D deficiency On: :06 Request HgA1C , Office (01136)Indication: Diabetes mellitus type II, controlled, with no complications On: :55 Request CBC, PLATELETS & MANUAL DIFF (74471)Indication: Hypokalemia (Renamed from Decreased potassium in the blood) On: :08 Request Comments: recheck before 11-07-14 MICROALBUMIN: CREATININE RATIO (36457) AND (92662)Indication: Proteinuria On: :49 Request VITAMIN B-12 (CYANOCOBALAMIN) (95286)Indication: B12 deficiency anemia On: :56 Request Vitamin D Hydroxy (81949)Indication: Vitamin D deficiency On: :56 Request CBC WITH MANUAL DIFF (40174)Indication: B12 deficiency anemia On: :55 Request METABOLIC PANEL, COMPREHENSIVE (64815)Indication: Hypertensive heart disease without heart failure On: :55 Request LIPID PANEL (42392)Indication: Mixed hyperlipidemia On: :55 Request LIPID PANEL (92185)Indication: Mixed hyperlipidemia On: :31 Request TSH (86774)Indication: Thyroid Nodule On: :31 Request MICROALBUMIN: CREATININE RATIO (22980) AND (26308)Indication: Diabetes mellitus type II, controlled, with no complications On: :31 Request METABOLIC PANEL, COMPREHENSIVE (83669)Indication: Diabetes mellitus type II, controlled, with no complications On: :31 Request URINALYSIS, W/ MICRO (51764)Indication: Proteinuria On: :30 Request Vitamin D Hydroxy (90093)Indication: Vitamin D deficiency On: :30 Request CBC, PLATELETS & AUT DIFF (50518)Indication: B12 deficiency anemia On: :29 Request VITAMIN B-12 (CYANOCOBALAMIN) (19143)Indication: B12 deficiency anemia On: :29 Request HgA1C , Office (93894)Indication: Diabetes mellitus type II, controlled, with no complications On: :03 Request TSH (27129)Indication: Thyroid Nodule On: :39 Request LIPID PANEL (41321)Indication: Mixed hyperlipidemia On: :38 Request CBC WITH MANUAL DIFF (25741)Indication: Diabetes mellitus type II, controlled, with no complications On: :38 Request METABOLIC PANEL, COMPREHENSIVE (74816)Indication: Diabetes mellitus type II, controlled, with no complications On: :38 Request Vitamin D Hydroxy (74243)Indication: Vitamin D deficiency On: :22 Request CBC, PLATELETS & AUT DIFF (16197)Indication: B12 deficiency anemia On: 44-Jok-13934:22 Request VITAMIN B-12 (CYANOCOBALAMIN) (20189)Indication: B12 deficiency anemia On: :22 Request CBC WITH MANUAL DIFF (13369)Indication: Diabetes mellitus type II, controlled, with no complications On: :12 Request METABOLIC PANEL, COMPREHENSIVE (24655)Indication: Diabetes mellitus type II, controlled, with no complications On: 24-Gyy-55337:12 Request HEPATIC FUNCTION PANEL (63196)Indication: Mixed hyperlipidemia On: 43-Thg-60978:10 Request LIPID PANEL (45533)Indication: Mixed hyperlipidemia On: 62-Ovo-11248:10 Request VITAMIN B-12 (CYANOCOBALAMIN) (44925)Indication: B12 deficiency anemia On: 10-Awp-71250:02 Request TSH (78742)Indication: Dysthymic disorder On: 29-Ukw-571400:17 Request CREATININE CLEARANCE (99198)Indication: Proteinuria On: 09-Ooz-444922:15 Request 24 hour urine for Protein (24469)Indication: Proteinuria On: 87-Lqj-983599:15 Request VITAMIN B-12 (CYANOCOBALAMIN) (72585)Indication: B12 deficiency anemia On: 79-Taz-961138:15 Request CCP ANTIBODY (61533)Indication: Pain in unspecified joint On: 07-Nov-20119:47 Request LIPID PANEL (37474)Indication: Mixed hyperlipidemia On: 79-Opx-795859:45 Request OVA & PARASITE DIR SMEAR (38242)Indication: Diarrhea On: :52 Request LEUKOCYTE COUNT, FECAL (96872)Indication: Diarrhea On: :52 Request Clostridium difficile Toxin A+B, EIA (43853)Indication: Diarrhea On: :52 Request HANSA CULTURE-STOOL (49173)Indication: Diarrhea On: :52 Request CBC WITH MANUAL DIFF (11408)Indication: Hypertensive heart disease without heart failure On: 25-Vot-409815:11 Request METABOLIC PANEL, COMPREHENSIVE (86821)Indication: Hypertensive heart disease without heart failure On: 26-Tlh-982518:11 Request LIPID PANEL (90235)Indication: Mixed hyperlipidemia On: 76-Snl-979173:11 Request Influenza B Ag (83127)Indication: Myalgia and myositis On: 70-Wwm-65874:06 Request Influenza A Ag (61152)Indication: Myalgia and myositis On: 97-Txf-28723:06 Request METABOLIC PANEL, COMPREHENSIVE (83554)Indication: Uncomplicated herpes simplex On: 68-Zhh-727821:13 Request MICROALBUMIN: CREATININE RATIO (70580) AND ([id number])Indication: Abnormal glucose tolerance test On: :32 Request METABOLIC PANEL, COMPREHENSIVE (30660)Indication: Hypertensive heart disease without heart failure On: :32 Request HEPATIC FUNCTION PANEL ([id number])Indication: Mixed hyperlipidemia On: :31 Request LIPID PANEL (53274)Indication: Mixed hyperlipidemia On: :31 Request TSH ([id number])Indication: Abnormal glucose tolerance test On: 90-Oez-074172:19 Request LIPID PANEL ([id number])Indication: Mixed hyperlipidemia On: 84-Srk-517031:15 Request HEPATIC FUNCTION PANEL ([id number])Indication: Mixed hyperlipidemia On: 34-Ryx-106078:15 Request METABOLIC PANEL, COMPREHENSIVE (06975)Indication: Hypertensive heart disease without heart failure On: :56 Request HEPATIC FUNCTION PANEL (21234)Indication: Mixed hyperlipidemia On: :56 Request LIPID PANEL (43302)Indication: Mixed hyperlipidemia On: :56 Request MICROALBUMIN: CREATININE RATIO ([id number]) AND ([id number])Indication: Abnormal glucose tolerance test On: :30 Request CBC WITH MANUAL DIFF ([id number])Indication: Abnormal glucose tolerance test On: :30 Request VITAMIN B-12 (CYANOCOBALAMIN) (87787)Indication: Tinnitus, unspecified laterality On: :24 Request METABOLIC PANEL, COMPREHENSIVE ([id number])Indication: Hypertensive heart disease without heart failure On: :24 Request LIPID PANEL (15877)Indication: Mixed hyperlipidemia On: :24 Request URINALYSIS W/O MICRO ([id number])Indication: Hypertensive heart disease without heart failure On: :12 Request TSH ([id number])Indication: Hypertensive heart disease without heart failure On: 22-Akq-484379:12 Request CBC WITH MANUAL DIFF ([id number])Indication: Hypertensive heart disease without heart failure On: 11-Fmf-100268:12 Request METABOLIC PANEL, COMPREHENSIVE ([id number])Indication: Hypertensive heart disease without heart failure On: :12 Request LIPID PANEL ([id number])Indication: Mixed hyperlipidemia On: 69-Sfo-270601:12 Request CBC with manual diff ([id number])Indication: Pre-operative examination On: :30 Request Metabolic Panel, Comprehensive ([id number])Indication: Pre-operative examination On: 01-Zpy-211548:30 Request Urinalysis, Office (94085)Indication: Pre-operative examination On: 13-Obf-922310:29 Request Lipid Panel ([id number])Indication: Mixed hyperlipidemia On: :52 Request Comments: in three months (approximately) TSH ([id number])Indication: Hypertensive heart disease without heart failure On: :52 Request MICROALBUMIN URINE QUANT ([id number])Indication: Hypertensive heart disease without heart failure On: :52 Request METABOLIC PANEL, COMPREHENSIVE (80577)Indication: Hypertensive heart disease without heart failure On: :52 Request CBC WITH MANUAL DIFF ([id number])Indication: Hypertensive heart disease without heart failure On: :52 Request HEPATIC FUNCTION PANEL ([id number])Indication: Mixed hyperlipidemia On: :52 Request LIPID PANEL ([id number])Indication: Mixed hyperlipidemia On: :52 Request HEPATIC FUNCTION PANEL ([id number])Indication: Mixed hyperlipidemia On: :54 Request LIPID PANEL (10512)Indication: Mixed hyperlipidemia On: :54 Request TSH ([id number])Indication: pruritis On: :37 Request METABOLIC PANEL, COMPREHENSIVE ([id number])Indication: pruritis On: :37 Request CBC WITH MANUAL DIFF ([id number])Indication: pruritis On: :37 Request LIPID PANEL ([id number])Indication: Mixed hyperlipidemia On: :18 Request HEPATIC FUNCTION PANEL ([id number])Indication: Mixed hyperlipidemia On: :18 Request HEPATIC FUNCTION PANEL ([id number])Indication: Mixed hyperlipidemia On: :14 Request LIPID PANEL ([id number])Indication: Mixed hyperlipidemia On: 7-Don-848254:14 Request Comments: 2mos Planned Encounters Medical; 3 Month FU - On: 24-Aug-2018 7:00 [facility] Margarita Drake DO, DO, Kathleen Planned Procedures ELECTROCARDIOGRAM, COMPLETE (ECG) On: 23-May-2018 Intent ([id number])By: Margarita Drake DO Comments: sinus favio no acute chg Margarita GALARZA B 12 Injection, 1000 mcg (J3420)By: On: 23-May-2018 Intent Margarita Drake DO, DO, Comments: b12 1,000mcg/ml 1ml given L deltoid lot#[id number] exp: dino Margarita B 12 Injection, 1000 mcg (J3420)By: On: 26-Mar-2018 Intent Marlyn Roberts LPN Comments: [id number] dltdIMas ORCHID HAND B 12 Injection, 1000 mcg (J3420)By: On: 19-Feb-2018 Intent Margarita Drake DO, DO, Comments: vitamin b12 1000mcg injectionlot: [id number]: 06/2019L DELT IMpt tolerated well Margarita B 12 Injection, 1000 mcg (J3420)By: On: 07-Dec-2017 Intent Noelle GALARZA Margarita Drake , Comments: 1 ml given lt arm lot [id number] exp 01/20 Margarita B 12 Injection, 1000 mcg (J3420)By: On: 10-Nov-2017 Intent Margarita Drake DO, DO, Margarita CHEST XRAY, PA & LATERAL ([id number])By: On: 26-Sep-2017 Intent Allyn Manley Aerosol Treatment (48852)By: Khanh On: 13-Sep-2017 Intent Ann Marie MCDANIEL Aerosol Treatment ([id number])By: Vineet, On: 07-Sep-2017 Intent Allyn Comments: Lungs clear after aerosol treatment. B 12 Injection, 1000 mcg (J3420)By: On: 15-Aug-2017 Intent Margarita Drake DO Noelle DO, Comments: vitamin b12 1000mcg injectionlot: [id number]: 10/2018L DELT IMpt tolerated wellAD ORCHID HAND Margarita INFUSION, NORMAL SALINE SOLUTION , On: 10-Aug-2017 Intent 1000 CC (Special Coverage Instructions Apply. See MCM: 2048) (J7030)By: Libby Mai DO Toradol Injection, 30 mg (J1885)By: On: 09-Aug-2017 Intent Libby Mai DO Comments: toradol 30mg IV push -per dr. mailot: [id number]: 11/2017IV push in 23g in R ACpt tolerated well. AD ORCHID HAND INFUSION, NORMAL SALINE SOLUTION , On: 09-Aug-2017 Intent 1000 CC (Special Coverage Comments: 23g inserted to R AC per first attemptpt tolerated [id number] NS infusing Instructions Apply. See MCM: 2048) (J7030)By: Stefanie Ghosh XR RIB AND CHEST LEFT ([id number])By: Sergei On: 09-Aug-2017 Libby Zavala DO Comments: stat call wet read fall with left anterior inferior rib pain/sob B 12 Injection, 1000 mcg (J3420)By: On: 03-Aug-2017 Intent Visit, Nurse Comments: given - see flowsheet Dose-prefilled syringeRIGHT DLTD, IMgiven by:CIARA JarrellNVIS signed B 12 Injection, 1000 mcg (J3420)By: On: 01-Aug-2017 Intent Margarita Drake DO, DO, Comments: vitamin b12 1000mcg injectionlot: [id number]: 10/2018L DELT IMpt tolerated wellAD ORCHID HAND Margarita B 12 Injection, 1000 mcg (J3420)By: On: 26-Jul-2017 Intent Margarita Drake DO, DO, Comments: vitamin b12 1000mcg injectionlot: [id number]: 10/2018L DELT IMpt tolerated wellAD ORCHID HAND Margarita INTENSIVE BEHAVIORAL THERAPY TO On: 25-Jul-2017 Intent REDUCE CARDIOVASCULAR DISEASE RISK, INDIVIDUAL, [id number], ANNUAL, 15 MINUTES ([id number])By: Margarita Drake DO, DO, Kathleen SCREENING DIGITAL TOMOSYNTHESIS OF On: 25-Jul-2017 Intent BREAST ([id number])By: Margarita Drake DO, DO Margarita B 12 Injection, 1000 mcg (J3420)By: On: 25-Jul-2017 Intent Margarita Drake DO, DO, Comments: vitamin b12 1000mcg injectionlot: [id number]: 10/2018L DELT IMpt tolerated wellAD ORCHID HAND Margarita Rocephon Injection, 1 Gm (J0696)By: On: 13-Mar-2017 Intent Libby Mai DO Radiology - Finger(s) - RightBy: Sergei On: 13-Mar-2017 Libby Zavala DO Comments: second finger rule out osteo Aerosol Treatment (22340)By: Noelle On: 23-Sep-2016 Margarita Zavala DO, DO, Kathleen Comments: albulterol .83%more a/e but more noise- inspir and expir wheeze and junky Bone Density StudyBy: Davian Mccray MD On: 12-Nov-2015 Intent MAMMOGRAM, SCREENING, BOTH BREAST On: 12-Nov-2015 Intent (53705)By: Davian Mccray MD CT - Chest (Without Contrast)By: Shazia On: 05-Nov-2015 Intent Davian ARAGON Comments: low dose DEXA SCAN AXIAL SKELETON (49970)By: On: 29-Oct-2015 Intent Shazia ARAGON, Davian Ultrasound - ThyroidBy: Shazia ARAGON, On: 29-Oct-2015 Intent Davian BILATERAL MAMMOGRAMS (46829)By: Shazia On: 29-Oct-2015 Intent Davian ARAGON B [...] MAMMOGRAM, SCREENING, BOTH BREAST On: 07-Nov-2014 Intent ([id number])By: Libby Mai DO A B 12 Injection, 1000 mcg (J3420)By: On: 07-Nov-2014 Intent Sergei GALARZA Libby A Comments: lot: [id number]: 06/19Dose: 1,000 mcgSite: l dltdLocation; IMby: B 12 Injection, 1000 mcg (J3420)By: On: 08-Oct-2014 Intent Sergei DO Libby A Comments: Lot:[id number]:05/20Dose:1mlRoute:IMSite:l armGiven By:RAMÓN signed BILATERAL MAMMOGRAMS ([id number])By: Sergei On: 08-Aug-2014 Intent Helga GALARZAa A INJECTION, VITAMIN B-12 On: 23-Jun-2014 Intent CYANOCOBALAMIN, UP TO 1000 MCG Comments: lot [id number] 03/19location L armroute imgiven by - msmithVIS [...] On: 21-Mar-2014 Intent HERMANN (Ankle Brachial Index) ([id number])By: On: 10-Feb-2014 Intent Fast DO, Libby A B 12 Injection, 1000 mcg (J3420)By: On: 11-Dec-2013 Intent Fast DO, Libby A Comments: Edgar dltd, [id number] flowsheetMegan CT - ChestBy: Fast DO, Libby A On: 11-Dec-2013 Intent Eprescribed prescriptions ([id number])By: On: 11-Dec-2013 Intent Fast DO, Libby A B 12 Injection, 1000 mcg (J3420)By: On: 30-Oct-2013 Intent Fast DO, Libby A Comments: lot: [id number]: 07/19site/route: L del/IMamt: 1mLVIS signed when applicableChelsea, FAMILY MEDICINE PHYSICIAN Eprescribed prescriptions ([id number])By: On: 09-Sep-2013 Intent Rachel Leyva ELECTROCARDIOGRAM, COMPLETE (ECG) On: 27-Aug-2013 Intent ([id number])By: Ann Marie Cassidy CNP SPECIMEN HNDLNG/TRNSPRT, OFFC > LAB On: 18-Jun-2013 Intent ([id number])By: Ann Marie Cassidy CNP MAMMOGRAM, SCREENING, BOTH BREASTS On: 04-Jun-2013 Intent (03520)By: Fast DO Libby A DXA, BONE DENSITY, AXIAL SKELETON On: 04-Jun-2013 Intent (17540)By: Fast DO Libby A CT - ChestBy: [...] MAMMOGRAM, SCREENING, BOTH BREASTS On: 01-Feb-2013 Intent ([id number])By: Sergei GALARZA Libby A Comments: end april CT - ChestBy: Fast DO Libby A On: 01-Feb-2013 Intent Comments: march or april B 12 Injection, 1000 mcg (J3420)By: On: 01-Feb-2013 Intent Sergei DO Libby A Eprescribed prescriptions ([id number])By: On: 01-Feb-2013 Intent Rachel Leyva B 12 Injection, 1000 mcg (J3420)By: On: 30-Oct-2012 Intent Rachel Leyva Comments: Lot:Exp:08/17Lot:[id number]:1mlRoute:imSite:L deltoidGiven by:BMY DXA, BONE DENSITY, AXIAL SKELETON On: 30-Oct-2012 Intent (25781)By: Helga Mai DOa A Eprescribed prescriptions (G8553)By: On: 30-Oct-2012 Intent Rachel Leyva Nuclear Medicine - ThyroidBy: Noelle On: 24-Sep-2012 Intent , Margarita Noelle DO, Margarita Esophagram with 13 mmm tabletBy: On: 06-Sep-2012 Intent Noelle DO, Margarita Noelle DO, Margarita Eprescribed prescriptions ([id number])By: On: 06-Sep-2012 Intent Allyn Prajapati LPN B 12 Injection, 1000 mcg (J3420)By: On: 30-Jul-2012 Intent Helga Mai DOa A Comments: Lot #:[id number] date: mount given: 1mlRoute: IMSite given: left deltoidGiven by: KADY Rehman CT - ChestBy: Helga Mai DOa A On: 30-Jul-2012 Intent Ultrasound - ThyroidBy: Fast DO, On: 30-Jul-2012 Intent Libby A Eprescribed prescriptions (G8553)By: On: 30-Jul-2012 Intent Rachel Leyva Eprescribed prescriptions ([id number])By: On: 05-Jul-2012 Intent Allyn Prajapati LPN MAMMOGRAM, SCREENING, BOTH BREASTS On: 23-Apr-2012 Intent (92562)By: Libby Mai DO CT - Chest (IV Contrast Needed)By: On: 21-Nov-2011 Intent Libby Mai DO Comments: thi is a follow up CT for abnormal ct chest in april 2011 TDAP VACCINE >7 IM (55360)By: On: 25-Jul-2011 Intent Rachel Leyva Comments: Lot:[id number]:07/21/13Amt:prefilledRoute:IMSite:left deltGiven By: ANGEL Anthony CT - Abdomen & PelvisBy: Sergei GALARZA, On: 25-Jul-2011 Intent Libby Ballard Comments: stat call wet read FLU VAC, SPLIT, >3 YEARS, INTRAMUSC On: 25-Jul-2011 Intent ([id number])By: Rachel Leyva Comments: pt refuses CT - ChestBy: Libby Mai DO On: 20-Apr-2011 Intent Comments: pe protocol Ultrasound - ThyroidBy: Sergei GALARZA, On: 04-Apr-2011 Intent Libby Ballard Comments: to be done in 6 months Spirometry (27279)By: Libby Mai DO On: 16-Mar-2011 Intent A Comments: good effort and curve normal Pulse Oximetry (18589)By: Sergei GALARZA, On: 16-Mar-2011 Intent Libby Ballard Comments: 97% EKG (76313)By: Libby Mai DO On: 16-Mar-2011 Intent Comments: [...] MAMMOGRAM, SCREENING, BOTH BREASTS On: 17-Jan-2011 Intent (14204)By: Libby Mai DO Pulse Oximetry (78115)By: Khanh MCDANIEL, On: 14-Jun-2010 Intent Reema Aerosol Treatment (87136)By: Khanh On: 14-Jun-2010 Intent Ann Marie MCDANIEL DXA, BONE DENSITY, AXIAL SKELETON On: 23-Dec-2009 Intent (04181)By: Libby Mai DO MAMMOGRAM, SCREENING, BOTH BREASTS On: 23-Dec-2009 Intent (03366)By: Libby Mai DO A EKG (52893)By: Rachel Leyva On: 23-Dec-2009 Intent Comments: ekg- 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 no change normal axis MAMMOGRAM, SCREENING, BOTH BREASTS On: 25-Nov-2008 Intent (06666)By: Libby Mai DO EKG (09418)By: Libby Mai DO On: 25-Nov-2008 Intent Comments: ekg showed normal sinus with no lateral t wave inversioon and poor rwave progression- twave inversion anteriolry unchanged Spirometry (13221)By: Libby Mai DO On: 25-Nov-2008 Intent A Radiology - Chest- PA and LatBy: Sergei On: 25-Nov-2008 Intent Libby GALARZA Pulse Oximetry (42724)By: Sergei GALARZA, On: 25-Nov-2008 Intent Libby Ballard Bio Z (23495)By: Libby Mai DO On: 14-May-2008 Intent Comments: [...] On: 09-Oct-2006 Intent Libby GALARZA Bio Z (61718)By: Libby Mai DO On: 09-Oct-2006 Intent Comments: high svr and low normal cardiac output- so will add in [facility] Planned Medications INFUSION, NORMAL SALINE SOLUTION , [...] without anemia Hypomagnesemia : DISCONTINUED - MAGNESIUM (62072) Indication: Hypomagnesemia Macrocytosis without anemia : DISCONTINUED - METABOLIC PANEL, BASIC (24792) Indication: Macrocytosis without anemia Nonsmoker : How [...] Mixed hyperlipidemia : DISCONTINUED - LIPID PANEL (07735) Indication: Mixed hyperlipidemia Mixed hyperlipidemia : DISCONTINUED - METABOLIC PANEL, COMPREHENSIVE (35380) Indication: Mixed hyperlipidemia Mixed hyperlipidemia : DISCONTINUED - LIPID PANEL (31895) Indication: Mixed hyperlipidemia Diabetes mellitus type 2, uncontrolled, without complications : DISCONTINUED - METABOLIC PANEL, COMPREHENSIVE (59339) Indication: Diabetes mellitus type 2, uncontrolled, without [...] Advance Directives Name Dates Details Immunization Registry [place] - Effective on Effective: 25-Jul-201707/25/2017. Expiration date [...] failure, Vitamin D deficiency (268.9), 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 [facility] Office Visit On: [...] severe, Vitamin D deficiency (268.9), 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 [facility] Office Visit On: [...] bronc hitis, post viral cough-given z-pack and knvepatgso-Lnnls-gswze not feeling good- fatigue, fever, chills, high [...] The patient does have durable power of attorney general and living will. The patient has noticed nothing from the geriatic depression scale. Other providers contributing to the patient's care are pneumatic drum sander, gastrologist and sec accountant. Encounter Diagnosis: BMI 26.0-26.9,adult, Hypomagnesemia, Nonsmoker, Pulmonary [...] issues sent to Transitional care unit at [place]. Saw Dr. Greene in trasitional care, had [...] for xofran.Told it was colitis. Admitted to [facility] and had monitoring then cath found 25% [place] cardio myopthy, placed on carvediolol 6.25mg Recently went to [facility] seen after Nonstemi, and low EF [...] is transitioning into care from a hospital ([facility] 10/23 to 10/27 pneumonia) and a [...] - Reason for hospitalization note: (was in [facility] [place] for bronchitis I used [...] The patient does have durable power of attorney general and living will. The patient has noticed lack of energy. Other providers contributing to the patient's care are formulation chemist and other: (eye exam - 1 year [...] the fatigue is because traveling alot for [place] and up late and trial coming upEncounter [...] shot- and she hasnt been [facility] us reviewed and told her [...] evaluation: Surgery is with Dr. Yepez in [place]- [phone] and fax- [phone]- had stimulator removed- then had mri of [...] pressure (and trying to use hands or vessel builder anything). There is no radiation. Associated symptoms [...] Patient has been compliant with instructions. [facility] End: 09-Aug-2006 12:15 nt medication use: no [...] better- couldnt get insurance to pay for [employer] works for her- thinks she needs to [...]
--- OUTSIDE RECORDS SUMMARY | 2018-10-01 09:54 | XMS RPT_ITS | Continuity of Care Document ---
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: Active Canker sore [...] braekfast and fish sandwich at [facility] Status: Active Dysphagia, unspecified dysphagia (787.20) Comments: awaiting bx Status: Active Dysthymic disorder (F34.1, 300.4) Status: Active Elevated platelet count (R79.89, 790.6) Status: Active Encounter for annual general medical examination with abnormal findings in adult (Z00.01, V70.0) Status: Active Encounter for screening for malignant neoplasm of colon (Renamed from Special screening for malignant neoplasms, colon) (Z12.11, V76.51) Comments: last scope 03/20 [facility] Status: Active Encounter for screening mammogram [...] d ay (can buy a pedometer at [facility] [facility]), -5 days of week of 30 mins [...] 10-Apr-2018 Active VITAMIN C & E COMBINATION, 141-023ZD-NOSF (Oral Capsule) 1 (one) Capsule Capsule qd [...] : 09-Apr-2018 Inactive Comments:Sixty script given to vruklpwN85.0 AUGMENTIN, 875-125MG (Oral Tablet) 1 Tablet bid [...] : 28-Jan-2016 End : 07-Feb-2016 Inactive NYSTATIN, 059777WZNF/GM (External Cream) apply Cream bid to affected [...] Start : 25-Oct-2007 Inactive VITAMIN D (ERGOCALCIFEROL), 55295JYMT (Oral Capsule) 1 Capsule q weekly for [...] Quantity: 10 {Vial} Refills: 3 Ordered:02-Sep-2016 Slarb [employer], Marlyn Start : 21-Mar-2014 End : 02-Sep-2016 [...] Quantity: 4 {Tablet} Refills: 0 Ordered:07-Oct-2016 Slarb [employer], Marlyn Start : 23-Sep-2016 End : 07-Oct-2016 [...] days Quantity: 30 {Tablet_ER_24HR} Refills: 6 Ordered:02-May-2007 Amei Shelton Start : 02-May-2007 End : 02-May-2007 [...] physical examination (Z01.818, V72.83) Comments: ekg at [facility] with records from recent hospitalization Status: Inactive [...] (R06.02, 786.05) Comments: See referral letter from [facility] REspiratory scanned document Dr Munguia saw [...] surgical decompression /fusion c3-c6- [facility] Completed Date Value Details 07-May-2018 Discharge Instruction Result: Comments: See Note; NOTES: [facility] Medical Records Department [address] [place] [address] Discharge Instruction 05/07/18 0931 MR#: [id number] Acct: [id number] Name: Radha MAHARAJ Rep #: [id number] : 1945 72 From: Parminder Blanco MD [...] Department Summary Result: Comments: See Note; NOTES: [facility] Medical Records Department [address] [place] [address] Emergency Department Summary 05/07/18 0838 MR#: [id number] Acct: [id number] Name: MAR MAHARAJ Rep #: [id number] : 1945 72 From: Parminder Blanco MD PCP: Margarita Drake DO Status: DEP ER - ER Visit Summary Date of Service: 05/07/18 Chief Complaint: Nausea, vomiting and diarrhea History of Present Illness: The patient is a 72 F has a past medical history of valvular heart disease, hypertension, cholesterol spinal stenosis and multiple surgeries. Patient states she zoran t [place] [employer] [place] on [place]. And she developed nausea [...] Dehydration This note was ge nerated with Everwise dictation software. It may contain incorrect words, [...] problems, contact your Primary Care Provider. Call [facility] ([phone]) or report to the closest Emergency Room. Call 911 if necessary. 05/07/18 1545 <Elec tronically signed by Parminder Blanco MD> Date Parminder Blanco MD Cosigner Signature (If Indicated): Date CC: Margarita Drake DO 22-Feb-2018 Downtime Report Result: Comments: See Note; NOTES: [facility] Medical Records Department [address] [place] [address] Downtime Report MR#: [id number] Acct: [id number] Name: MAR MAHARAJ Rep #: [id number] : 1945 72 From: Gilson Washington PCP: Margarita Drake DO Status: REG CLI This patient was seen during an EMR downtime February 05, 2018 - February 12, 2018. This patient may have a combination o f paper and electronic documentation or all paper documentation. All documentation is viewable within the e-chart portion of [employer] for each patient visit. 08-Feb-2018 Spine Lumbar (Routine) Result: Comments: See Note; NOTES: [facility] Imaging Services [address] [place] [address] Spine Lumbar (Routine) MR#: [id number] Acct: [id number] Name: MAR MAHARAJ Rep #: [id number] : 1945 F 72 From: Dylan Donato MD PCP: Margarita Drake DO Status: REG CLI Study: Spine Lumbar (Routine) Date of Exam: 02/08/18 Exam# [id number] Ordering Dr: De Yepez STUDY: MRI LUMBAR [...] , CC: NICO YEPEZ; Margarita Drake DO Nuisance Wildlife Specialist: Signed 08-Feb-2018 Spine Lumbar without Contrast Result: Comments: See Note; NOTES: [facility] Imaging Services [address] [place] [address] Spine Lumbar without Contrast MR#: [id number] Acct: [id number] Name: MAR MAHARAJ Rep # : [id number] : 1945 F 72 From: Robles Mejia PCP: Margarita Drake DO Status: REG CLI Study: Spine Lumbar without Contrast Date of Exam: 02/08/18 Exam# [id number] Ordering Dr: De Yepez STUDY: C T [...] paraspinous soft tissue structures. ORDE R #: [id number] CT/Spine Lumbar without Contrast IMPRESSION: Multilevel degenerative change discussed above. Hardware as described. Right L3 pedicle screw appears broken. Grade 1 anterolisthesis of L4 on L5. Laminectomies. Demineralization. Electronically Signed: Robles Mejia DO at 10:57 EDT , Service support , CC: DE Drake DO Nuisance Wildlife Specialist: Signed 09-Jan-2018 Pulmonary Visit Report Result: Comments: See Note; NOTES: [facility] [address] [place] [address] OFFICE VISIT Date of Service: 01/09/18 MR#: [id number] Acct: [id number] Name: MAR HOLLIDAY Rep #: [id number] : 1945 Provider: Adair Wu MD Age/Sex: 72/F Location: [facility] Status: Signed Assessment AND Plan Problems 1. [...] went to the ER with a bro amna rib and had a pain shot. 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 DME Vendor: [employer] Accompanie d [...] 10/12/17 [History Confirmed 12/03/17] Hydrocodone Bitart/Apap 5-325 [[place] 5MG-325MG] 1 tab PO Q6H PRN PRN 3 Days #10 tab 12/03/17 [Rx] sodium chloride 0.65 % nasal spray aerosol 2 spray INTRANASAL QHS ml 01/09/18 [History Confirmed 01/09/18] PFSH Medical History Hyperlipidemia (Chronic) Elevated blood pressure reading without diagnosis of hypertension (Chronic) Other group home (current) drug therapy (Chronic) Nonrheumatic aortic (valve) [...] Date (if applicable) CC: Ann Marie Cassidy ROOM SERVER; Margarita Drake 03-Dec-2017 Emergency Department Summary Result: Comments: See Note; NOTES: [facility] Medical Records Department [address] [place] [address] Emergency Department Summary 12/03/17 1656 MR#: [id number] Acct: [id number] Name: MAR MAHARAJ Rep #: [id number] : 1945 72 From: Arya Torrez MD [...] blunt trauma This note was generated with [employer] dictation software. It may contain incorrect words, spelling, and punctuation that were not noted in review of the chart prior to signing ED Disposition - Plan for ED Patient: Disposition: Home or Assisted Living Chief Complaint: Chest Other Instructions: ED Contusion Vs Minor Fx Rib Prescriptions: Hydrocodone Bitart/Apap 5-325 [[place] 5MG-325MG] 1 tab PO Q6H PRN PRN 3 Days #10 tab PRN Reason: Alena n Referrals: Margarita Drake, [Primary Care Provider] - 1 Week if not improving What to do if you have Problems For any increased pain, shortness of breath, bleeding, nausea or vomiting, chest pa in, or any unexpected problems, contact your Primary Care Provider. Call [facility] ([phone]) or report to the closest Emergency Room. Call 911 if necessary. 12/03/17 1706 <Electron ically signed by Arya Torrez MD> Date Arya Torrez MD Cosigner Signature (If Indicated): Date CC: Margarita Drake DO 03-Dec-2017 Chest PA and Lateral Result: Comments: See Note; NOTES: [facility] Imaging Services [address] [place] [address] Chest PA and Lateral MR#: [id number] Acct: [id number] Name: MAR MAHARAJ Rep #: [id number] : 1945 F 72 From: Lotus Anthony MD PCP: Margarita Drake DO Status: DEP ER Study: Chest PA and Lateral Date of Exam: 12/03/17 Exam# [id number] Ordering Dr: Arya Torrez MD STUDY: X-RAY [...] CC: Margarita Drake DO; Arya Torrez MD Nuisance Wildlife Specialist: Signed 18-Oct-2017 SCREENING MAMM (CAD), BILAT Result: Comments: See Note; NOTES: [facility] Imaging Services [address] [place] [address] SCREENING MAMM (CAD), BILAT MR#: [id number] Acct: [id number] Name: MAR MAHARAJ Rep #: [id number] : 1945 F 72 From: Florian Valenzuela MD PCP: Margarita Drake DO Status: REG CLI Study: SCREENING MAMM (CAD), BILAT Date of Exam: 10/18/17 Exam# [id number] Ordering Dr: Alysia Drake DO MAMMOGRAPHY - [...] delay biopsy of a clinically suspicious abnormality. [id number] Electronically Signed: Florian Howard i, MD at 13:51 EST Tel [phone], Service support , CC: Margarita Drake DO Nuisance Wildlife Specialist: Signed 13-Oct-2017 Cardiology Visit Report Result: Comments: See Note; NOTES: [facility] [address] [place] [address]. [address] [place] [address] OFFICE VISIT Date of Service: 10/13/17 MR#: [id number] Acct: [id number] Name: MAR MAHARAJ Rep #: [id number] : 1945 Provider: Sergio Lawler MD Age/Sex: 72/F Location: [facility] Status: Signed HPI HPI Chief [...] reading without diagnosis of hypertension (Chronic) Other group home (current) drug ther apy (Chronic) Nonrheumatic aortic (valve) insufficiency (Chronic) Nonrheumatic tricuspid (valve) insufficiency (Chronic) Other secondary pulmonary hypertension (Chronic) Nonischemic cardiomyopathy (Director Women deangelo) Fatigue (Chronic) Hx pulmonary embolism (Resolved) [...] AND Plan 1. Coronary artery disease involving duckwater coronary artery of duckwater heart without angina pectoris I25.10 Mild Plan [...] vis,est,level 3 Diagnoses Coronary artery disease involving duckwater coronary artery of duckwater heart without angina pectoris I25.10 Coronary Disease-Associated Artery/Lesion type: duck[place] artery [place] vs. transplanted heart: duckwater heart Associated angina: without angina Essential hyperten tamika I10 Hypertension type: essential hypertension Coding Level of Care Code Off vis,est,level 3 Diagnoses Coronary artery disease involving duckwater coronary artery of duckwater heart without angina pect wilber I25.10 Coronary Disease-Associated Artery/Lesion type: duck[place] artery [place] vs. transplanted heart: duckwater heart Associated angina: without angina Essential hypertension I10 Hypertension type: esse ntial hypertension 10/13/17 1546 <Electronically signed by Sergio Lawler MD> Date Sergio Lawler MD Cosigner Signature: Date _ (if applicable) CC: Margarita Drake DO 26-Sep-2017 Chest PA and Lateral Result: Comments: See Note; NOTES: [facility] Imaging Services [address] [place] [address] Chest PA and Lateral MR#: [id number] Acct: [id number] Name: MAR MAHARAJ Rep #: [id number] : 1945 F 72 From: Quinn Pringle PCP: Margarita Drake DO Status: REG CLI Study: Chest PA and Lateral Date of Exam: 09/26/17 Exam# [id number] Ordering Dr: Allyn Manley ROOM SERVER-C STUDY: X-RAY C HEST REASON FOR EXAM: [...] , CC: HUANG Manley; Margarita Drake DO Nuisance Wildlife Specialist: Signed 22-May-2017 History and Physical Exam Result: Comments: See Note; NOTES: 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 Medical Records Department [address] [place] [address] Emergency Department Summary 05/22/17 1707 MR#: [id number] Acct: [id number] Name: MAR MAHARAJ Rep #: [id number] : 1945 71 From: Angelo William MD [...] your Primary Care Provider. Call Esperanza barnard ([phone]) or report to the closest Emergency Room. Call 911 if necessary. 05/22/17 1710 <Electronically signed by Angelo William MD> Date Angelo William MD Cosigner Signature (If Indicated): Date CC: Ann Marie Cassidy 22-May-2017 Brain/Head without Contrast Result: Comments: See Note; NOTES: [facility] Imaging Services [address] [place] [address] Brain/Head without Contrast MR#: [id number] Acct: [id number] Name: MAR MAHARAJ Rep #: [id number] : 1945 F 71 From: Dorothy Barber MD PCP: Ann Marie Cassidy Status: REG ER Study: Brain/Head without Contrast Date of Exam: 05/22/17 Exam# [id number] Ordering Dr: Angelo William MD STUDY : [...] changes of the brain. Electronically Signed: Dorothy Babrer MD at 16:42 EDT Tel , Service support , CC: Ann Marie Cassidy; Angelo William MD Nuisance Wildlife Specialist: Signed 22-May-2017 Chest 1 View (Portable) Result: Comments: See Note; NOTES: [facility] Imaging Services [address] [place] [address] Chest 1 View (Portable) MR#: [id number] Acct: [id number] Name: MAR MAHARAJ Rep #: [id number] : 1945 F 71 From: Dorothy Barber MD PCP: Ann Marie Cassidy Status: REG ER Study: Chest 1 View (Portable) Date of Exam: 05/22/17 Exam# [id number] Ordering Dr: Angelo William MD STUDY: X-RAY [...] CC: Ann Marie Cassidy; Angelo William MD Nuisance Wildlife Specialist: Signed 17-May-2017 Emergency Department Summary Result: Comments: See Note; NOTES: [facility] Medical Records Department [address] [place] [address] Emergency Department Summary 05/17/17 1543 MR#: [id number] Acct: [id number] Name: MAR MAHARAJ Rep #: [id number] : 1945 71 From: Tab Peacock MD [...] problems, contact your Primary Care Provider. Call [facility] [facility] ([phone]) or report to the closest Emergency Room. Call 911 if necessary. 05/17/17 1652 <Electronically signed b austin Peacock MD> Date Tab Peacock MD Cosigner Signature (If Indicated): Date CC: Ann Marie Cassidy 28-Apr-2017 Emergency Department Summary Result: Comments: See Note; NOTES: [facility] Medical Records Department [address] [place] [address] Emergency Department Summary 04/28/17 1059 MR#: [id number] Acct: [id number] Name: MAR MAHARAJ Rep #: [id number] : 1945 71 From: Tab Peacock MD [...] Primary Care Provider. Call [facility] Reg istry ([phone]) or report to the closest Emergency Room. Call 911 if necessary. 04/28/17 1306 <Electronically signed by Tab Peacock MD> Date Tab Peacock MD Cosigner Signature (If Indicated): Date CC: Ann Marie Cassidy 28-Apr-2017 Chest 1 View (Portable) Result: Comments: See Note; NOTES: [facility] Imaging Services [address] [place] [address] Chest 1 View (Portable) MR#: [id number] Acct: [id number] Name: MAR MAHARAJ Rep #: [id number] : 1945 F 71 From: Sekou Bose DO PCP: Ann Marie Cassidy Status: REG ER Study: Chest 1 View (Portable) Date of Exam: 04/28/17 Exam# [id number] Ordering Dr: Tab Peacock MD STUDY: X-RAY [...] CC: Ann Marie Cassidy; Tab Peacock MD Nuisance Wildlife Specialist: Signed 12-Apr-2017 Echocardiogram Complete Result: Comments: See Note; NOTES: [facility] Cardiovascular Services [address] [place] [address] Echo Complete 04/12/17 1150 MR#: [id number] Acct: [id number] Name: MAR MAHARAJ Rep #: [id number] : 1945 71 From: Sergio Lawler MD Attending Dr: Nuris ARAGON,Sergio Status: REG CLI Ordering Dr: Sergio Lawler MD Date: 04/12/17 Location: [facility] Sex: F C Admitted: Reason For [...] max alok: 52.8 cm/sec Lat Peak E' Aolk: 3.5 cm/s ec Med Peak E' Alok: [...] Dictated: 04/12/17 1 150 Date Transcribed: 04/12/171648 Nuisance Wildlife Specialist: Signed 13-Mar-2017 Finger(s) Min 2 Views Result: Comments: See Note; NOTES: [facility] Imaging Services [address] [place] [address] Verdana 4d Finger(s) Min 2 Views MR#: [id number] Acct: [id number] Name: MAR MAHARAJ Katy p #: [id number] : 1945 F 71 From: Maldonado Pablo DO PCP: Ann Marie Cassidy Status: REG CLI Study: Finger(s) Min 2 Views Date of Exam: 03/13/17 Exam# [id number] Ordering Dr: Libby Mai DO STUDY: X-RA [...] Maldonado DO Samy at 22:01 EDT Tel [phone], Service support , CC: Ann Marie Mai DO Nuisance Wildlife Specialist: Signed 15-Feb-2017 Cerv Spine 4 or 5 Views Result: Comments: See Note; NOTES: [facility] Imaging Services [address] [place] [address] Verdana 4d Cerv Spine 4 or 5 Views MR#: [id number] Acct: [id number] Name: MAR MAHARAJ Rep #: [id number] : 1945 F 71 From: Vitaly Turner MD PCP: Ann Marie Cassidy Status: REG CLI Study: Cerv Spine 4 or 5 Views Date of Exam: 02/15/17 Exam# [id number] Ordering Dr: De Yepez STUDY: X -RAY [...] Service support , CC: Ann Marie YEPEZ Nuisance Wildlife Specialist: Signed 14-Feb-2017 Spine Lumbar (Routine) Result: Comments: See Note; NOTES: [facility] Imaging Services [address] [place] [address] Anju 4d Spine Lumbar (Routine) MR#: [id number] Acct: [id number] Name: MAR MAHARAJ ep #: [id number] : 1945 F 71 From: Dylan Donato MD PCP: Ann Marie Cassidy Status: REG CLI Study: Spine Lumbar (Routine) Date of Exam: 02/14/17 Exam# [id number] Ordering Dr: Abdiel Betts MD LORENA DY: [...] CC: Ann Marie Cassidy; Abdiel Betts MD Nuisance Wildlife Specialist: Signed 22-Jan-2017 Abdomen/Pelvis without Cont Result: Comments: See Note; NOTES: [facility] Imaging Services [address] [place] [address] Verdana 4d Abdomen/Pelvis without Cont MR#: [id number] Acct: [id number] Name: JOHN MAHARAJ Rep #: [id number] : 1945 F 71 From: Jeb Piedra MD PCP: Ann Marie Cassidy Status: REG ER Study: Abdomen/Pelvis without Cont Date of Exam: 01/22/17 Exam# [id number] Ordering Dr: Stacy Corey MD STUDY: CT [...] CC: Ann Marie Cassidy; Noelle Corey MD Nuisance Wildlife Specialist: Signed 25-Dec-2016 Venous Duplex Lower Extremity Result: Comments: See Note; NOTES: [facility] Cardiovascular Services [address] [place] [address] Venous Duplex US, Unilateral 12/23/16 1042 MR#: [id number] Acct: [id number] Name: MAR DEAN Rep #: [id number] : 1945 71 From: David Hawthorne MD [...] Date Dictated: 12/23/16 1042 Date Transcribed: 12/25/161936 Nuisance Wildlife Specialist: Signed 19-Dec-2016 Chest 1 View (Portable) Result: Comments: See Note; NOTES: [facility] Imaging Services [address] [place] [address] Verdana 4d Chest 1 View (Portable) MR#: [id number] Acct: [id number] Name: MAR MAHARAJ Rep #: [id number] : 1945 F 71 From: Alfa Bettencourt MD PCP: Ann Marie Cassidy Status: REG ER Study: Chest 1 View (Portable) Date of Exam: 12/19/16 Exam# [id number] Ordering Dr: Edin Rodriguez MD STUDY: X- [...] CC: Ann Marie Cassidy; Edin Rodriguez MD Nuisance Wildlife Specialist: Signed 19-Dec-2016 Abdomen/Pelvis without Cont Result: Comments: See Note; NOTES: [facility] Imaging Services [address] [place] [address] Verdana 4d Abdomen/Pelvis without Cont MR#: [id number] Acct: [id number] Name: JOHN MAHARAJ Rep #: [id number] : 1945 F 71 From: Alfa Bettencourt MD PCP: Ann Marie Cassidy Status: REG ER Study: Abdomen/Pelvis without Cont Date of Exam: 12/19/16 Exam# [id number] Ordering Dr: Edin Rodriguez MD S KARINEDY: [...] CC: Ann Marie Cassidy; Edin Rodriguez MD Nuisance Wildlife Specialist: Signed 15-Dec-2016 Emergency Department Summary Result: Comments: See Note; NOTES: [facility] Medical Records Department [address] [place] [address] Emergency Department Summary MR#: [id number] Acct: [id number] Name: JOHN MAHARAJ Rep #: [id number] : 1945 71 From: Shon Amaya MD [...] pain SHON AMAYA MD T: RUFUS JOB: [id number] 12/15/16 1522 <Electronically signed by Shon Amaya MD> Date Shon Amaya MD Cosigner Signature (If Indicated): Date CC: Ann Marie Cassidy Date Dictated: 12/13/162342 Date Transcribed: 12/13/162342 Nuisance Wildlife Specialist: Signed 15-Dec-2016 12 Lead Electrocardiogram Result: Comments: See Note; NOTES: [facility] Cardiovascular Services [address] [place] [address] 12 Lead EKG 12/13/161602 MR#: [id number] Acct: [id number] Name: CAROL ANNMARSUDHA Burns p #: [id number] : 1945 71 From: Astrid Merlos MD [...] undetermined Abnormal ECG Confirmed by ASTRID MERLOS ([id number]), social media editor CHRISTIAN WASHINGTON ([id number]) on 017 1:15:30 PM Referred By: JOSE LUIS Confirmed By:ASTRID MERLOS 12/15/16 1315 Date Astrid Merlos MD CC: Ann Marie Cassidy Date Dictated: 12/13/16 1603 Date Transcribed: 12/13/161602 Nuisance Wildlife Specialist: Signed 14-Dec-2016 Venous Duplex Lower Extremity Result: Comments: See Note; NOTES: [facility] Cardiovascular Services [address] [place] [address] Venous Duplex US, Unilateral 12/13/16 1612 MR#: [id number] Acct: [id number] Name: MAR DEAN Rep #: [id number] : 1945 71 From: Rj lCeary MD Attending Dr: Status: DEP ER Ordering [...] Date Dictated: 12/13/16 1612 Date Transcribed: 12/14/16602 Nuisance Wildlife Specialist: Signed 13-Dec-2016 Discharge Instruction Result: Comments: See Note; NOTES: [facility] Medical Records Department [address] [place] [address] Discharge Instruction 12/13/16 190 MR#: [id number] Acct: [id number] Name: CAROL ANNRadhaNellie Muñoz Rep #: [id number] : 1945 71 From: Shon Amaya MD [...] your Primary Care Provider. Call [facility] ([phone]) or report to the closest Emergency Room. Call 911 if necessary. 12/13/162044 <Electronically signed by Shon Amaya MD&amp ;#62; Date Shon Amaya MD Cosigner Signature (If Indicated): Date CC: Ann Marie Cassidy 13-Dec-2016 Chest 1 View (Portable) Result: Comments: See Note; NOTES: [facility] Imaging Services [address] [place] [address] Verdana 4d Chest 1 View (Portable) MR#: [id number] Acct: [id number] Name: MAR MAHARAJ Rep #: [id number] : 1945 F 71 From: Trent Arias MD PCP: Ann Marie Cassidy Status: REG ER Study: Chest 1 View (Portable) Date of Exam: 12/13/16 Exam# [id number] Ordering Dr: Shon Amaya MD STUDY: X-RAY [...] MD at 17:07 EDT , Service support [phone], CC: Ann Marie Cassidy; Shon Amaya MD Nuisance Wildlife Specialist: Signed 13-Dec-2016 Abdomen/Pelvis W IV Cont ONLY Result: Comments: See Note; NOTES: [facility] Imaging Services [address] [place] [address] Verdana 4d Abdomen/Pelvis W IV Cont ONLY MR#: [id number] Acct: [id number] Name: LILI MAHARAJ Rep #: [id number] : 1945 F 71 From: Trent Arias MD PCP: Ann Marie Cassidy Status: REG ER Study: Abdomen/Pelvis W IV Cont ONLY Date of Exam: 12/13/16 Exam# [id number] Ordering Dr: Shon Amaya MD STUDY: CT [...] MD at 18:25 EDT , Service support [phone], CC: Ann Marie Cassidy; Shon Amaya MD Nuisance Wildlife Specialist: Signed 15-Nov-2016 History and Physical Exam Result: Comments: See Note; NOTES: [facility] Medical Records Department [address] [place] [address] History and Physical 11/09/16 1003 MR#: [id number] Acct: [id number] Name: Radha MAHARAJ Rep #: [id number] : 1945 71 From: Glenn Ro PCP: Ann Marie Cassidy Status: PRE IN Location: [facility] DATE OF SERVICE: 11/22/2016 This [...] in 2003, Dr. Darien Avina, [facility]. 2. Hysterectomy. 3. Appendectomy. 4. Cholec ystectomy. 5. Brain surgery x2 Arnold-Chiari malformation. 6. Carpal tunnel bilaterally. 7. Cervical surgery, December 2013 at [facility]. 8. Right total knee arthroplasty on August 19, 2014, Dr. Darien Avina , [facility]. 9. Laminectomy 2000, instrumentation lumbar fusion. 10. Right total hip arthroplasty in 2013, revision assistive devices. The patient admits to full upper dentures. Denies glasses or hearing aids. SOCIAL HISTORY: The patient is retired, works part-time. Denies tobacco use, denies alcohol use, denies illicit drug use. REVIEW OF SYSTEMS: Documented in the [facility] medical hi story sheet, please refer [...] of left knee dated October 17, 2016, [facility], weightbearing, AP, tunnel, sunrise, lateral views [...] the hospital. YADIRA Narvaez T: RUFUS JOB: [id number] 11/15/16 0839 <Electronically signed by Glenn Ro > Date: Time: Glenn Ro CC: Ann Marie Cassidy; Glenn Ro Date Dictated: 11/09/16 1003 Date Transcribed: 7 1003 Nuisance Wildlife Specialist: Signed ____ I have re-examined the patient. There are no clinical changes since date of exam. ____ See Progress Notes for Changes ____ Dictated on Admission Date: ___ Time: Signature: 24-Oct-2016 History and Physical Exam Result: Comments: See Note; NOTES: [facility] Medical Records Department [address] [place] [address] History and Physical 10/19/16 1537 MR#: [id number] Acct: [id number] Name: Radha MAHARAJ Rep #: [id number] : 1945 71 From: Glenn Ro PCP: Ann Marie Cassidy Status: PRE IN Location: [facility] DATE OF SERVICE: 10/25/2016 This [...] a previous right total knee arthroplasty in [facility] er 2013, is very pleased with [...] arthroplasty i n 2003, Dr. Darien Avina, [facility]. 2. Hysterectomy. 3. Appendectomy. 4. Cholecystectomy. 5. Brain surgery x2. Arnold-Chiari malformation. 6. Carpal tunnel bilaterally. 7. Cervical surgery in ril 2013 in [place]. 8. Right total knee arthroplasty on August 19, 2014, Dr. Darien Avina, [facility]. 9. Laminectomy 2001 instrumentation, lumbar fusion. 10. Right total hip arthroplasty in 2013 , revision. ASSISTIVE DEVICES: The patient admits to full upper dentures. Denies glasses or hearing aids. SOCIAL HISTORY: The patient is retired, but works part-time. She denies tobacco use, denies al cohol use, denies illicit drug use. REVIEW OF SYSTEMS: Documented in the [facility] medical history sheet. Please refer to [...] X-rays of l eft knee dated 10/17/2016, [facility], weightbearing, AP, tunnel, [...] Ro Date Dictated: 10/19/161536 Date Transcribed: 10/19/161536 Nuisance Wildlife Specialist: Toni igned ____ I have re-examined the patient. There are no clinical changes since date of exam. ____ See Progress Notes for Changes ____ Dictated on Admission Date: Time: Sig nature: 23-Oct-2016 Chest PA and Lateral Result: Comments: See Note; NOTES: [facility] Imaging Services [address] [place] [address] Verdana 4d Chest PA and Lateral MR#: [id number] Acct: [id number] Name: MAR MAHARAJ Rep #: [id number] : 1945 F 71 From: Heraclio Meredith MD PCP: Ann Marie Cassidy Status: PRE ER Study: Chest PA and Lateral Date of Exam: 10/23/16 Exam# [id number] Ordering Dr: Edin Horton MD STUDY: X-RAY [...] MD at 14:44 EST , Service support [phone], CC: Mary Cassidy; Edin Horton MD Nuisance Wildlife Specialist: Signed 23-Sep-2016 Echocardiogram Complete Result: Comments: See Note; NOTES: [facility] Cardiovascular Services [address] [place] [address] Echo Complete 09/23/16 1311 MR#: [id number] Acct: [id number] Name: MAR MAHARAJ Rep #: [id number] : 1945 71 From: Sergio Lawler MD [...] Dictated: 09/23/16 1311 Date Transcribed: 09/23/16 1521 Nuisance Wildlife Specialist: Signed 21-Sep-2016 12 Lead Electrocardiogram Result: Comments: See Note; NOTES: [facility] Cardiovascular Services [address] [place] [address] 12 Lead EKG 09/18/16 1204 MR#: [id number] Acct: [id number] Name: MAR MAHARAJ Katy p #: [id number] : 1945 71 From: Cade Harrison MD [...] ECG Confirmed by OMAR ARAGON, CADE ([id number]), social media editor CHRISTIAN WASHINGTON ([id number]) on 09/21/2016 1:40:15 PM Referred By: FLORIN Confirmed By:CADE HARRISON MD 09/21/16 1340 Date Cade Harrison MD CC: Ann Marie Cassidy Date Dictated: 09/18/16 1204 Date Transcribed: 09/18/16 1204 Nuisance Wildlife Specialist: Signed 20-Sep-2016 Emergency Department Summary Result: Comments: See Note; NOTES: [facility] Medical Records Department [address] [place] [address] Emergency Department Summary MR#: [id number] Acct: [id number] Name: JOHN MAHARAJ Rep #: [id number] : 1945 71 From: Edin Rodriguez MD [...] C: Ann Marie Cassidy T: NTS JOB: [id number] 09/20/16 1522 <Electronically signed by Edin Rodriguez MD> Date __ Edin Rodriguez MD Cosigner Signature (If Indicated): Date CC: Ann Marie Cassidy Date Dictated: 09/18/16 1339 Date Trans cribed: 09/18/16 1339 Nuisance Wildlife Specialist: Signed 18-Sep-2016 Discharge Instruction Result: Comments: See Note; NOTES: [facility] Medical Records Department [address] [place] [address] Discharge Instruction 09/18/16 1334 MR#: [id number] Acct: [id number] Name: Radha MAHARAJ Rep #: [id number] : 1945 71 From: Edin Rodriguez MD [...] problems, contact your Primary Care Provider. Call [facility] ([phone]) or report to the closest Emergency Room. Call 911 if necessary. 09/18/16 1336 & #60;Electronically signed by Edin Rodriguez MD> Date Edin Rodriguez MD Cosigner Signature (If Indicated): Date CC: Ann Marie Khanh 18-Sep-2016 Chest PA and Lateral Result: Comments: See Note; NOTES: [facility] Imaging Services [address] [place] [address] Verdana 4d Chest PA and Lateral MR#: [id number] Acct: [id number] Name: CAROL ANNMAR S Rep #: [id number] : 1945 F 71 From: Rolly Aviles MD PCP: Ann Marie Cassidy Status: REG ER Study: Chest PA and Lateral Date of Exam: 09/18/16 Exam# [id number] Ordering Dr: Edin Rodriguez MD STUDY: X-RAY [...] 13:29 EST Te l , Service support [phone], CC: Ann Marie Cassidy; Edin Rodriguez MD Nuisance Wildlife Specialist: Signed 17-Aug-2016 Knee 4 or More Views Result: Comments: See Note; NOTES: [facility] Imaging Services [address] [place] [address] Verdana 4d Knee 4 or More Views MR#: [id number] Acct: [id number] Name: MAR MAHARAJ Rep #: [id number] : 1945 F 71 From: Florian Valenzuela MD PCP: Davian Mccray Status: REG CLI Study: Knee 4 or More Views Date of Exam: 08/17/16 Exam# [id number] Ordering Dr: Gemma Nina MD STUD Y: [...] Florian Valenzuela MD at 15:48 EST Tel [phone], Service support [phone], CC: Tejal Mccray; Gemma Nina MD Nuisance Wildlife Specialist: Signed 17-Aug-2016 Tibia AND Fibula 2 Views Result: Comments: See Note; NOTES: [facility] Imaging Services [address] [place] [address] Verdana 4d Tibia AND Fibula 2 Views MR#: [id number] Acct: [id number] Name: MAR MAHARAJ Rep #: [id number] : 1945 F 71 From: Florian Valenzuela MD PCP: Davian Mccray Status: REG CLI Study: Tibia AND Fibula 2 Views Date of Exam: 08/17/16 Exam# [id number] Ordering Dr: Gemma Nina STUDY: X-RAY - [...] Florian Valenzuela MD at 15:42 EST Tel [phone], Service support [phone], CC: Davian Nina MD Nuisance Wildlife Specialist: Signed 01-Jul-2016 Venous Duplex Lower Extremity Result: Comments: See Note; NOTES: [facility] Cardiovascular Services [address] [place] [address] Venous Duplex US, Unilateral 07/01/16 0850 MR#: [id number] Acct: [id number] Name: MAR MAHARAJ Rep #: [id number] : 1945 70 From: David Hawthorne MD Attending Dr: Luly Noriega ROOM SERVER Status: REG CLI Ordering Dr: Luly Noriega ROOM SERVER-C Date: 07/01/16 Location: [facility] Sex: F C [...] called and/or faxed augmentation. to Luly Noriega ROOM SERVER @ 9:20 am @ [facility] is [...] Date Dictated: 07/01/16 0850 Date Transcribed: 07/01/161936 Nuisance Wildlife Specialist: Signed 07-Jun-2016 6 Minute Walk Test Result: Comments: See Note; NOTES: [facility] Pulmonary Services/Neurology [address] [place] [address] MR#: [id number] Acct: [id number] Name: MAR MAHARAJ Rep #: [id number] : 1945 70 From: Adair Wu MD Referring Dr: Luly Noriega NP Date: Ordering Dr: Sex: F C Location: PSN PSN 6 Minute Walk Test - 6 Minute Walk Test 6 Minute Walk Test: 6 Minute Walk Test PSN:6-Minute Walk Test Start: 06/07/16 11:18 Freq: Status: Active Document 06/07/16 11:18 REK (Rec: 06/07/16 11:21 REK [id number]) 6 Minute Walk Test Date Performed 06/07/16 [...] CC: Date Dictated: 06/07/161540 Date Transcribed: 06/07/161540 Nuisance Wildlife Specialist: Adair Wu Signed 25-Apr-2016 Chest PA and Lateral Result: Comments: See Note; NOTES: [facility] Imaging Services [address] [place] [address] Verdana 4d Chest PA and Lateral MR#: [id number] Acct: [id number] Name: MAR MAHARAJ Re p #: [id number] : 1945 F 70 From: Stephen Walton DO PCP: Davian Mccray Status: REG ER Study: Chest PA and Lateral Date of Exam: 04/25/16 Exam# [id number] Ordering Dr: Cristhian Mandujano MD STUDY: X-R [...] Stephen Walton DO at 20:12 EDT Tel [phone], Service support [phone], CC: CRISTHIAN MANDUJANO MD; Davian Mccray Nuisance Wildlife Specialist: Signed 25-Apr-2016 Abdomen/Pelvis without Cont Result: Comments: See Note; NOTES: [facility] Imaging Services [address] [facility] [place] [address] Verdana 4d Abdomen/Pelvis without Cont MR#: [id number] Acct: [id number] Name: GABE MAHARAJ S Rep #: [id number] : 1945 F 70 From: Stephen Walton DO PCP: Davian Mccray Status: REG ER Study: Abdomen/Pelvis without Cont Date of Exam: 04/25/16 Exam# [id number] Ordering Dr: Cristhian Mandujano MD STUDY: CT [...] Stephen Walton DO at 19:00 EDT Tel [phone], Service support [phone], CC: CRISTHIAN MANDUJANO MD; Davian Mccray Nuisance Wildlife Specialist: Signed 12-Mar-2016 Emergency Department Summary Result: Comments: See Note; NOTES: [facility] Medical Records Department [address] [place] [address] Emergency Department Summary MR#: [id number] Acct: [id number] Name: MAR MAHARAJ Rep #: [id number] : 1945 70 From: Darien Warren MD [...] contusion. Darien Warren MD T: NTS JOB: [id number] 03/12/16 0306 <Electronically signed by Darien Warren MD> Date Darien Warren MD Cosigner Signature (If Indicated): Date CC: Davian Mccray Date Dictated: 2326 Date Transcribed: 03/10/162326 Nuisance Wildlife Specialist: Signed 10-Mar-2016 Discharge Instruction Result: Comments: See Note; NOTES: [facility] Medical Records Department [address] [place] [address] Discharge Instruction 03/10/162006 MR#: [id number] Acct: [id number] Name: MAR MAHARAJ Rep #: [id number] : 1945 70 From: Darien Warren MD [...] problems, contact your doctor. Call [facility] ([phone]) or report to the closest Emergency Room. Call 911 if necessary. 03/10/162007 <Electronically signed by Darien Warren MD> Date Darien Warren MD Cosigner Signature (If Indicated): Date CC: Davian Mccray 10-Mar-2016 Hip 2-3 Views with Pelvis Result: Comments: See Note; NOTES: [facility] Imaging Services [address] [place] [address] Verdana 4d Hip 2-3 Views with Pelvis MR#: [id number] Acct: [id number] Name: MAR DEAN Rep #: [id number] : 1945 F 70 From: Robles Mejia PCP: Davian Mccray Status: [facility] ER Study: Hip 2-3 Views with Pelvis Date of Exam: 03/10/16 Exam# [id number] Ordering Dr: Carlos Eduardo Warren MD STUDY: [...] MejiaDO at 19:47 EDT , Service support [phone], RAD/Hip 2-3 Views with Pelvis IMPRESSION: Hip joint space narrowing. Stable degenerative changes left hip. No fracture or dislocation. 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 ABNORMAL 25-Jan-2016 Pelvis 1 or 2 Views Result: Comments: See Note; NOTES: [facility] Imaging Services [address] [place] [address] Verdana 4d Pelvis 1 or 2 Views MR#: [id number] Acct: [id number] Name: Radha MAHARAJ Rep #: [id number] : 1945 F 70 From: Doroteo Salgado MD PCP: Davian Mccray Status: REG CLI Study: Pelvis 1 or 2 Views Date of Exam: 01/25/16 Exam# [id number] Ordering Dr: Yadira Nina dma, MD STUDY: [...] at 16 :50 EDT , Service support [phone], RAD/Pelvis 1 or 2 Views IMPRESSION: Focus [...] at 16:50 EDT , Service suppor t [phone], CC: Davian Mccray; Gemma Nina MD Nuisance Wildlife Specialist: Signed 19-Nov-2015 Vert Fx Asess/Lat Bone Den(H) Result: Comments: See Note; NOTES: [facility] Imaging Services [address] [place] [address] Verdana 4d Vert Fx Asess/Lat Bone Den(H) MR#: [id number] Acct: [id number] Luciano e: MAR MAHARAJ Rep #: [id number] : 1945 F 70 From: Florian Valenzuela MD PCP: Davian Mccray Status: REG CLI Study: Vert Fx Asess/Lat Bone Den(H) Date of Exam: 11/19/15 Exam# [id number] Chucho ering Dr: Davian Mccray STUDY: DUAL [...] Florian Valenzuela MD at 8:52 EDT Tel [phone], Service support [phone], CC: Davian Mccray Nuisance Wildlife Specialist: Signed 19-Nov-2015 Bilat Scrn Digital AND CAD Result: Comments: See Note; NOTES: [facility] Imaging Services [address] [place] [address] Verdana 4d Bilat Scrn Digital AND CAD MR#: [id number] Acct: [id number] Name: MAR MAHARAJ Rep #: [id number] : 1945 F 70 From: Florian Valenzuela MD PCP: Davian Mccray Status: REG CLI Study: Bilat Scrn Digital AND CAD Date of Exam: 11/19/15 Exam# [id number] Ordering Dr: Davian cMcray MAMMOGRAPHY - BILATERAL SCREENING REASON FOR EXAM: [...] Florian Valenzuela MD at 10:06 EDT Tel [phone], Service support [phone], CC: Davian Mccray Nuisance Wildlife Specialist: Signed 19-Nov-2015 Bilat Scrn Digital AND CAD Result: Comments: See Note; NOTES: [facility] Imaging Services [address] [place] [address] Verdana 4d Bilat Scrn Digital AND CAD MR#: [id number] Acct: [id number] Name: MAR MAHARAJ Rep #: [id number] : 1945 F 70 From: Florian Valenzuela MD PCP: Davian Mccray Status: REG CLI Study: Bilat Scrn Digital AND CAD Date of Exam: 11/19/15 Exam# [id number] Ordering Dr: Davian Mccray MAMMOGRAPHY - BILATERAL [...] Florian Valenzuela MD at 10:06 EDT Tel [phone], Service support [phone], CC: Davian Mccray Nuisance Wildlife Specialist: Signed 19-Nov-2015 Dexa Bone Density Study (HP) Result: Comments: See Note; NOTES: [facility] Imaging Services [address] [place] [address] Verdana 4d Dexa Bone Density Study () MR#: [id number] Acct: [id number] Name : MAR MAHARAJ Rep #: [id number] : 1945 F 70 From: Florian Valenzuela MD PCP: Davian Mccray Status: [facility] Study: Dexa Bone Density Study () Date of Exam: 11/19/15 Exam# [id number] Order ing Dr: Davian Mccray STUDY: DUAL [...] Florian Valenzuela MD at 12:53 EDT Tel [phone], Service support [phone], F ax [phone] CC: Davian Mccray Nuisance Wildlife Specialist: Signed 19-Nov-2015 Thyroid Result: Comments: See Note; NOTES: [facility] Imaging Services [address] [place] [address] Verdana 4d Thyroid MR#: [id number] Acct: [id number] Name: MAR MAHARAJ Rep #: [id number] : 1945 F 70 From: Stephen Walton DO PCP: Davian Mccray Status: REG CLI Study: Thyroid Date of Exam: 11/19/15 Exam# [id number] Ordering Dr: Davian Mccray STUDY: THYROID ULTRASOUN [...] Stephen Walton DO at 16:48 EDT Tel [phone], Service support [phone], CC: Davian Mccray Nuisance Wildlife Specialist: Signed 17-Dec-2014 Cerv Spine 2 or 3 Views Result: Comments: See Note; NOTES: [facility] Imaging Services [address] [place] [address] Radiology Report MR#: [id number] Acct: [id number] Name: MAR MAHARAJ Rep #: [id number] : 1945 F 69 From: Vitaly Turner MD PCP: Libby Mai DO Status: REG CLI Study: Cerv Spine 2 or 3 Views Date of Exam: 12/17/14 Exam# [id number] Ordering Dr: De Yepez STUDY: X-RAY - [...] at 11:32 EDT Tel , Service support [phone], 0045 RAD/Cerv Spine 2 or 3 Views IMPRESSION: Status post anterior fusion from C3-C6, with 3 mm extrusion of the C6 screw. Loss of the normal lordosis. No signs of instability. Electronically Signed: Vitaly Turner MD, FACR at 11:32 EDT , Service support [phone], CC: DE YEPEZ; Libby Mai DO Nuisance Wildlife Specialist: Signed 17-Dec-2014 Spine Cervical (Routine) Result: Comments: See Note; NOTES: [facility] Imaging Services [address] [place] [address] MRI Report MR#: [id number] Acct: [id number] Name: MAR MAHARAJ Rep #: [id number] : 1945 F 69 From: Vitaly Turner MD PCP: Libby Mai DO Status: REG CLI Study: Spine Cervical (Routine) Date of Exam: 12/17/14 Exam# [id number] Ordering Dr: De Yepez STUDY: MRI CERVIC [...] FACR at 11:15 EDT , Service support [phone], CC: DE YEPEZ; Libby Mai DO Nuisance Wildlife Specialist: Signed 15-Dec-2014 Thyroid Result: Comments: See Note; NOTES: [facility] Imaging Services [address] [place] [address] Ultrasound Report MR#: [id number] Acct: [id number] Name: MAR MAHARAJ Rep #: [id number] : 1945 F 69 From: Stephen Walton DO PCP: Libby Mai DO Status: REG CLI Study: Thyroid Date of Exam: 12/15/14 Exam# [id number] Ordering Dr: Lisa Garcia MD STUDY: THYROID [...] Stephen Walton DO at 13:38 EDT Tel [phone], Service support [phone], CC: Libby Mai DO; Lisa Garcia MD Nuisance Wildlife Specialist: Signed 17-Nov-2014 Bilat Scrn Digital AND CAD Result: Comments: See Note; NOTES: [facility] Imaging Services [address] [facility] [place] [address] Breast Imaging Report MR#: [id number] Acct: [id number] Name: MAR MAHARAJ Rep #: [id number] : 1945 F 69 From: Alfa Bettencourt MD PCP: Libby Mai DO Status: REG CLI Study: Bilat Scrn Digital AND CAD Date of Exam: 11/17/14 Exam# [id number] Ordering Dr: Libby Mai DO MAMMOGR APHY [...] at 12:06 EDT Tel , Service support [phone], CC: Libby Mai DO Nuisance Wildlife Specialist: Signed 17-Nov-2014 Chest without Contrast Result: Comments: See Note; NOTES: [facility] Imaging Services [address] [place] [address] CAT Scan Report MR#: [id number] Acct: [id number] Name: MAR MAHARAJ Rep #: [id number] : 1945 F 69 From: Alfa Bettencourt MD PCP: Libby Mai DO Status: REG CLI Study: Chest without Contrast Date of Exam: 11/17/14 Exam# [id number] Ordering Dr: Libby Mai DO STUDY: CT [...] at 10:21 EDT Tel , Service support [phone], CC: Libby Mai DO Nuisance Wildlife Specialist: Signed 23-Sep-2014 Brain/Head without Contrast Result: Comments: See Note; NOTES: [facility] Imaging Services [address] [place] [address] CAT Scan Report MR#: [id number] Acct: [id number] Name: MAR MAHARAJ Rep #: [id number] : 1945 F 69 From: Parminder Rashid MD PCP: Libby Mai DO Status: REG ER Study: Brain/Head without Contrast Date of Exam: 09/23/14 Exam# [id number] Ordering Dr: Rachel Avina MD STUDY: CT [...] MD at 21:19 EST , Service support [phone], CC: Libby Mai DO; Rachel Avina MD Nuisance Wildlife Specialist: Signed 23-Sep-2014 Spine Cervical without Contras Result: Comments: See Note; NOTES: [facility] Imaging Services [address] [facility] [address] CAT Scan Report MR#: [id number] Acct: [id number] Name: MAR MAHARAJ Rep #: [id number] : 1945 F 69 From: Parminder Rashid MD PCP: Libby Mai DO Status: REG ER Study: Spine Cervical without Contras Date of Exam: 09/23/14 Exam# [id number] Ordering Dr: Rachel Avina MD LORENA DY: [...] MD at 21:25 EST , Service support [phone], CC: Libby Mai DO; Rachel Avina MD Nuisance Wildlife Specialist: Signed 21-Aug-2014 Discharge Instruction Result: Comments: See Note; NOTES: [facility] Medical Records Department [address] [place] [address] Instructions for Home/Discharge Instructions 08/21/14 1712 MR#: [id number] Acc t: [id number] Name: MAR MAHARAJ Rep #: [id number] : 1945 69 From: Galo Antonio PA-C [...] needed. Additional Instructions: F/U APPT S PER [facility] POST-OP INSTRUCTIONS F/U WITH GLENN RO 09/03/14 9:15 AM PHYSICAL THERAPY APPT WITH CADE @ [facility] 08/25/14 @ 9:00 AM, WILL HAVE [...] Please Follow Up With: Glenn Ro 08/21/14 1506 <Electronically signed by Galo Antonio PA-C> Date ___ Galo Antonio PA-C CC: Libby Mai DO 19-Aug-2014 Knee 1 or 2 Views Result: Comments: See Note; NOTES: [facility] Imaging Services [address] [place] [address] Radiology Report MR#: [id number] Acct: [id number] Name: MAR MAHARAJ Rep #: [id number] : 1945 F 69 From: Bakari Kenny MD PCP: Libby Mai DO Status: ADM IN Study: Knee 1 or 2 Views Date of Exam: 08/19/14 Exam# [id number] Ordering Dr: Darien Avina MD STUDY: X-RAY [...] MD at 16:29 EST , Service support [phone], CC: Libby Mai DO; Darien Avina MD Nuisance Wildlife Specialist: Signed 12-Aug-2014 History and Physical Exam Result: Comments: See Note; NOTES: [facility] Medical Records Department [address] [place] [address] History and Physical 08/11/14 1334 MR#: [id number] Acct: [id number] Name: MAR MAHARAJ Rep #: [id number] : 1945 69 From: Glenn Ro PCP: Libby Mai DO Status: PRE IN Location: [facility] DATE OF SERVICE: 08/19/2014 PRIMARY [...] b.i.d. REVIEW OF SYSTEMS: Documented in the [facility] medical history sheet. Please refer to [...] of right knee dated May 30, 2014, [facility], weightbearing, AP, tunnel, [...] consent form. YADIRA Narvaez T: RUFUS JOB: [id number] 08/12/14 0740 <Electronically signed by Glenn Ro > Date: Time: Glenn Ro CC: Glenn Mai DO Date Dictated: 08/11/141333 Date Transcribed: 08/11/141333 Nuisance Wildlife Specialist: Signed ____ I have re-examined the patient. There a re no clinical changes since date of exam. ____ See Progress Notes for Changes ____ Dictated on Admission Date: Time: Signature: 23-May-2014 Hip min 2 Views Result: Comments: See Note; NOTES: [facility] Imaging Services [address] [place] [address] Radiology Report MR#: [id number] Acct: [id number] Name: MAR MAHARAJ Rep #: [id number] : 1945 F 68 From: Florian Valenzuela MD PCP: Libby Mai DO Status: REG CLI Study: Hip min 2 Views Date of Exam: 05/23/14 Exam# [id number] Ordering Dr: Libby Mai DO STUDY: X-RAY [...] Florian Valenzuela MD at 9:41 EDT Tel [phone], Service support [phone], CC: Libby Mai DO Nuisance Wildlife Specialist: Signed 23-May-2014 Knee 4 or More Views Result: Comments: See Note; NOTES: [facility] Imaging Services [address] [place] [address] Radiology Report MR#: [id number] Acct: [id number] Name: MAR MAHARAJ Rep #: [id number] : 1945 F 68 From: Florian Valenzuela MD PCP: Libby Mai DO Status: REG CLI Study: Knee 4 or More Views Date of Exam: 05/23/14 Exam# [id number] Ordering Dr: Libby Mai DO STUDY: X- [...] Florian Valenzuela MD at 9:42 EDT Tel [phone], Service support [phone], CC: Libby Mai DO Nuisance Wildlife Specialist: Signed 02-May-2014 Chest without Contrast Result: Comments: See Note; NOTES: [facility] Imaging Services [address] [place] [address] CAT Scan Report MR#: [id number] Acct: [id number] Name: MAR MAHARAJ Rep #: [id number] : 1945 F 68 From: Cristhian Spears MD PCP: Libby Mai DO Status: REG CLI Study: Chest without Contrast Date of Exam: 05/02/14 Exam# [id number] Ordering Dr: Libby Mai DO STUDY: CT [...] at 15:32 EDT Tel , Service support [phone], CC: Libby Mai DO Nuisance Wildlife Specialist: Signed 02-May-2014 Thyroid Result: Comments: See Note; NOTES: [facility] Imaging Services [address] [place] [address] Ultrasound Report MR#: [id number] Acct: [id number] Name: MAR MAHARAJ Rep #: [id number] : 1945 F 68 From: Stephen Walton DO PCP: Libby Mai DO Status: REG CLI Study: Thyroid Date of Exam: 05/02/14 Exam# [id number] Ordering Dr: Libby Mia DO STUDY: THYROID ULTRASOUND REASON FOR EXAM: [...] Stephen Walton DO at 19:17 EDT Tel [phone], Service support [phone], CC: Libby Mai DO Nuisance Wildlife Specialist: Signed 27-Feb-2014 L/S Spine Min 4 Views Result: Comments: See Note; NOTES: [facility] Imaging Services [address] [place] [address] Radiology Report MR#: [id number] Acct: [id number] Name: MAR MAHARAJ Rep #: [id number] : 1945 F 68 From: Florian Valenzuela MD PCP: Libby Mai DO Status: REG CLI Study: L/S Spine Min 4 Views Date of Exam: 02/27/14 Exam# [id number] Ordering Dr: De Yepez STUDY: X-R AY [...] Florian Valenzuela MD at 10:31 EDT Tel [phone], Service support [phone], RAD/L/S Spine Min 4 Views IMP RESSION: The patient is status post laminectomy and fusion at the L3-L4 and L4- L5 levels with bone graft and bone stimulator. Grade 2 anterolisthesis of L4 on L5. Electronically Signed: Florian khan MD at 10:31 EDT Tel [phone], Service support [phone], CC: DE YEPEZ; Libby Mai DO Nuisance Wildlife Specialist: Signed 27-Feb-2014 Spine Lumbar (Routine) Result: Comments: See Note; NOTES: [facility] Imaging Services [address] [place] [address] MRI Report MR#: [id number] Acct: [id number] Name: MAR MAHARAJ Rep #: [id number] : 1945 F 68 From: Angus Arreola PCP: Libby Mai DO Status: REG CLI Study: Spine Lumbar (Routine) Date of Exam: 02/27/14 Exam# [id number] Ordering Dr: De Yepez STUDY: MRI LUMBAR [...] MD at 7:48 EDT , Service support [phone], CC: DE Mai DO Nuisance Wildlife Specialist: Signed 10-Feb-2014 Cerv Spine 2 or 3 Views Result: Comments: See Note; NOTES: [facility] Imaging Services [address] [place] [address] Radiology Report MR#: [id number] Acct: [id number] Name: MAR MAHARAJ Rep #: [id number] : 1945 F 68 From: Florian Valenzuela MD PCP: Libby Mai DO Status: REG CLI Study: Cerv Spine 2 or 3 Views Date of Exam: 02/10/14 Exam# [id number] Ordering Dr: De Yepez STUDY: X -RAY [...] Florian Valenzuela MD at 15:54 EDT Tel [phone], Service support [phone], RAD/Cerv Spine 2 or 3 Views IMPRESSION: Status post anterior fu tamika at the C3-C4, C4-C5 and C5-C6 levels. No abnormal movement occurs between the vertebral segments. Electronically Signed: Florian Valenzuela MD at 15:54 EDT Tel [phone], Service support [phone], CC: DE YEPEZ; Libby Mai DO Nuisance Wildlife Specialist: Signed 13-Jan-2014 Echocardiogram Complete Result: Comments: See Note; NOTES: [facility] Cardiovascular Services [address] [place] [address] Echo Complete 01/10/14 1155 MR#: [id number] Acct: [id number] Name: LESLY MAHARAJ Rep #: [id number] : 1945 68 From: Sergio Lawler MD Attending Dr: Nuris ARAGON,Sergio Status: REG CLI Ordering Dr: Sergio Lawler MD Date: 01/10/14 Location: [facility] Sex: F C Admitted: [facility] This was a 2D Doppler, [...] Dictated: 01/10/14 1155 Date Transcribed: 01/13/14 1103 Nuisance Wildlife Specialist: Signed 20-Jun-2013 Valeri Thrasher Digital & CAD Result: Comments: See Note; NOTES: [facility] Imaging Services [address] [place] [address] Breast Imaging Report MR#: [id number] Acct: [id number] Name: MAR MAHARAJ Rep #: [id number] : 1945 F 67 From: Florian Valenzuela MD PCP: Status: REG CLI Exam# [id number] Ordering Dr: Libby Mai DO MAMMOGRAPHY - [...] 20, 2013 at 9: 52:55 AM EDT [phone] Electronically Signed GP/GP If you are the referring physician and would like to consult with the radiologist who provided this interpretation, please contact Florian Valenzuela M.D. at [phone]. If this radiologist is unavailable, you will be directed to another radiologist to assist. If you are a patient with a question regarding this report, please contact your referring physician directly. Professional Interpretation Provided By: [employer], Phone , These documents contain legally protected [...] of these documents. CC: Hari Mai DO Nuisance Wildlife Specialist: Signed 20-Jun-2013 Dexa Bone Density Study (HP) Result: Comments: See Note; NOTES: [facility] Imaging Services [address] [place] [address] Bone Density Report MR#: [id number] Acct: [id number] Name: MAR MAHARAJ Rep #: [id number] : 1945 F 67 From: Florian Valenzuela MD PCP: Status: [facility] Study: Dexa Bone Density Study (HP) Date of Exam: 06/20/13 Exam# [id number] Ordering Dr: Libby Mai DO STUDY: DUAL [...] angel luis mbar spine. On the lateral crop farmers view, there is evidence of loss of [...] June 20, 2013 at 10:14:39 AM EDT [phone] Electronically Signed GP/GP If you are the referring physician and would like to consult with the radiologist who provided this interpretation, please contact Florian Valenzuela M.D. at [phone]. If this radiologist is unavailable, you will be directed to another radiologist to assist. If you are a patient with a question regarding this report, plea se contact your referring physician directly. Professional Interpretation Provided By: [employer], Phone , These documents contain legally protected [...] of these documents. CC: Libby Mai DO Nuisance Wildlife Specialist: Signed 06-Jun-2013 Chest without Contrast Result: Comments: See Note; NOTES: [facility] Imaging Services [address] [place] [address] CAT Scan Report MR#: [id number] Acct: [id number] Name: MAR MAHARAJ Rep #: [id number] : 1945 F 67 From: Florian Valenzuela MD PCP: Status: REG CLI Study: Chest without Contrast Date of Exam: 06/06/13 Exam# [id number] Ordering Dr: Libby Mai DO STUDY: CT [...] June 06, 2013 at 10:07:38 AM EDT [phone] Electronically Signed GP/GP If you are the referring physician and would like to consult with the radiologist who provided this interpretation, please contact Florian Valenzuela M.D. at [phone]. If this radiologist is unavailable, you will be directed to another radiologist to assist. If you are a patient with a question regarding this report, please contact your referring physician directly. Professional Interpretation Provided By: [employer], Phone , These documents contain legally protected [...] of these documents. CC: Libby Mai DO Nuisance Wildlife Specialist: Signed 06-Jun-2013 Chest without Contrast Result: Comments: See Note; NOTES: [facility] Imaging Services [address] [place] [address] CAT Scan Report MR#: [id number] Acct: [id number] Name: MAR MAHARAJ Rep #: [id number] : 1945 F 67 From: Florian Valenzuela MD PCP: Status: REG CLI Study: Chest without Contrast Date of Exam: 06/06/13 Exam# [id number] Ordering Dr: Libby Mai DO STUDY: CT [...] June 06, 2013 at 10:07:38 AM EDT [phone] Electronically Signed GP/GP If you are the referring physician and would like to consult with the radiologist who provided this interpretation, please contact Florian Valenzuela M.D. at [phone]. If this radiologist is unavailable, you will be directed to another radiologist to assist. If you are a patient with a question regarding this report, please contact your referring physician directly. Professional Interpretation Provided By: [employer], Phone , These documents contain legally protected [...] of these documents. CC: Libby Mai DO Nuisance Wildlife Specialist: Signed Immunization Name Dates Details Pneumococcal (2 years and up) on: 2016 Comments: [place] [facility] Family History Unknown Family Member Name Dates Details Father Comments: COPD, Smoker - Status: Active Mother Comments: Breast CA, DM, HTN, Lung CA - Status: Active Social History Name Dates Details Alcohol Use Comments: Occasional alcohol use Status: Active Caffeine Use Comments: 2 QD Status: Active Current Work/Study Status Comments: Part-time, [employer] Status: Active Exercise History Comments: Light Status: Active Living Situation Comments: Lives alone Status: Active No Drug Use Status: Active Non Smoker/No Tobacco Use Comments: 04/20/11 Status: Active 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, [address] GAP 11 (Normal) Range: 5-15 CO2 28.0 [...] A.D.A. criteria.Please note revised GLUCOSE reference range zxzehsant23/02/2018. :32 HgA1C , Office (64190) HgA1C , Office 6.3 % (Normal) Range: 4.6 - 7.1 :32 Blood Glucose , Office (72695) Blood Glucose , Office 133 (Normal) :16 Miscellaneous Lab Procedure Comments: Comments: [id number]; URINE TOX; RUN LOWEST TEST IN LABCOTest(s) Ordered: [id number]; URINE TOX; RUN LOWEST TEST IN [facility] [address] [place], [place], [address] [facility] [place]: [id number] 6+OXYCODONE-BUND (ng/mL)DRUG RESULT SCREEN CUTOFF____ Amphetamines,Urine Negat LAB (Normal) ananth ng/mL 1000Amphetamine test includes Amphetamine and Methamphetamine.Barbiturates Negative ng/mL 200Benzodiazepines Negative ng/mL 200Cannabinoid TEST Negative ng/mL 20Cocaine (Metab) Negative ng/mL 300Opiates Negative ng/mL 300 Opiates test includes Codeine, Morphine, Hydromorphone, [place] codone.Oxycodone/Oxymorphone,Urine Negative ng/mL 300 Test includes Oxydodone and Oxymorphone. TESTING PERFORMED AT [facility]. ORIGINAL REPORT ON FILE IN LAB CONTAINS ADDITIONAL TEST SITE INFORMATION. :16 Urine Drug Screen (VISTA) Comments: Comments: [id number]; URINE TOX; RUN LOWEST TEST IN LABCORPList of Drugs Taken or Suspected? [facility] [address] [place], [address] THC NEGATIVE (Normal) PCP NEGATIVE [...] TESTING MUST BE ORDERED SEPARATELY. USE TESTMNEMONIC: [facility] :28 Microscopic Examination Comments: PATIENT WAS FASTINGPERFORMED BY: LabCoShore Memorial HospitalVjceqi5851 [facility] [id number] Bacteria Few (Normal) Mucus Threads Present (Normal) Epithelial Cells (non renal) 0-10 {/hpf} (Normal) Range: 0 - 10 RBC 0-2 {/hpf} (Normal) Range: 0 - 2 WBC 0-5 {/hpf} (Normal) Range: 0 - 5 :52 Basic Metabolic Profile (BMP) Comments: [facility] [address] [place], [place], [address] GAP 10 (Normal) Range: 5-15 CO2 27.0 [...] A.D.A. criteria.Please note revised GLUCOSE reference range lgmmforrp04/02/2018. 07-May-20188:52 CBC W/Diff, Automated Comments: [facility] [address] [place], [place], [address] Absolute Lymph 1.75 {X10_3/ul} (Normal) Range: 0.83-4.51 [...] :05 CBC W/Diff, Automated Comments: [facility] [address] [place], [place], [address] Absolute Lymph 1.82 {X10_3/ul} (Normal) Range: 0.83-4.51 [...] :05 Comprehensive Metabolic Profil Comments: [facility] [address] [place], [address] GAP 12 (Normal) Range: 5-15 CO2 28.0 [...] A.D.A. criteria.Please note revised GLUCOSE reference range sztqwauoq72/02/2018. 27-Wve-12601:28 CALCIFEDIOL (54930) Comments: PATIENT WAS FASTINGPERFORMED BY: LabCoShore [facility] HospitalTbewwd1033 [facility] [id number] Vitamin D, 25-Hydroxy 45.7 ng/mL (Normal) Range: 30.0-100.0 Comments: Vitamin D deficiency has been defined by the [place] of[place]icine and an Endocrine Society practice guideline as alevel of serum 25-OH vitamin D less than 20 ng/mL (1,2).The Endocrine Society went on to further define vitamin Dinsufficiency as a level between 21 and 29 ng/mL (2).1. IOM ([place] of Medicine). 2010. Dietary reference intakes for calcium and D. [place]: The National Academies Press.2. Delma MF, Mckenna ABDALLA, Dane MACKENZIE, et al. Evaluation, treatment, and prevention of vitamin D deficiency: an Endocrine Society clinical practice guideline. JCEM. 2010; 96(7):1911-30. :28 VITAMIN B-12 (CYANOCOBALAMIN) Comments: PATIENT WAS FASTINGPERFORMED BY: [place] [id number] (72673) Vitamin B12 507 pg/mL (Normal) Range: 232-1245 :28 TSH (29020) Comments: PATIENT WAS FASTINGPERFORMED BY: SOMA Analyticsrp [address] [place] [id number] TSH 0.816 {uIU/mL} (Normal) Range: 0.450-4.500 :28 URINALYSIS, W/ MICRO (85046) Comments: PATIENT WAS FASTINGPERFORMED BY: [employer] [place] [place] [id number] Microscopic Examination See below: (Normal) Comments: Microscopic was indicated and was performed. Nitrite, Urine Negative (Normal) Urobilinogen,Semi-Qn 0.2 mg/dL (Normal) Range: 0.2-1.0 Bilirubin Negative (Normal) Occult Blood Negative (Normal) Ketones Negative (Normal) Glucose Negative (Normal) Protein Negative (Normal) WBC Esterase 1+ (Abnormal) Appearance Clear (Normal) Urine-Color Yellow (Normal) pH 7.0 (Normal) Range: 5.0-7.5 Specific [place] 1.017 (Normal) Range: 1.005-1.030 :28 MICROALBUMIN: CREATININE RATIO Comments: PATIENT WAS FASTINGPERFORMED BY: [employer] Gblomz9047 [facility] [id number] (97486) AND (47714) Alb/Creat Ratio 9.9 {mg/g_creat} (Normal) Range: 0.0-30.0 Albumin, Urine 7.9 ug/mL (Normal) Creatinine, Urine 79.8 mg/dL (Normal) :28 METABOLIC PANEL, COMPREHENSIVE Comments: PATIENT WAS FASTINGPERFORMED BY: LabpeerTransfer6370 [facility] [id number] (70589) ALT (SGPT) 13 [iU]/L (Normal) Range: 0-32 [...] 8-27 Glucose 142 mg/dL (Abnormal) Range: 65-99 82-Vgp-06522:28 LIPID PANEL (99985) Comments: PATIENT WAS FASTINGPERFORMED BY: LabCoLovelace Women's HospitalUhvhlz5824 [facility] [id number] LDL/HDL Ratio 3.2 {ratio} (Normal) Range: 0.0-3.2 Comments: LDL/HDL Ratio Men Women 1/2 Avg.Risk 1.0 1.5 Av g.Risk 3.6 3.2 2X Avg.Risk 6.2 5.0 3X Avg.Risk 8.0 6.1 LDL Cholesterol Calc 143 mg/dL (Abnormal) Range: 0-99 VLDL Cholesterol Peg 29 mg/dL (Normal) Range: 5-40 HDL Cholesterol 45 mg/dL (Normal) Triglycerides 143 mg/dL (Normal) Range: 0-149 Cholesterol, Total 217 mg/dL (Abnormal) Range: 100-199 08-Ytv-37248:28 CBC W/AUTO DIFF WBC (87826) Comments: PATIENT WAS FASTINGPERFORMED BY: LabCoShore Memorial HospitalZqxigg5147 [facility] [id number] Immature Grans (Abs) 0.0 {x10E3/uL} (Normal) Range: [...] (Normal) Range: 3.4-10.8 :43 HgA1C , Office (49329) HgA1C , Office 6.3 % (Normal) Range: 4.6 - 7.1 :43 Blood Glucose , Office (99602) Blood Glucose , Office 105 (Normal) :55 MAGNESIUM (21241) Comments: PATIENT NOT FASTINGPERFORMED BY: [facility] Svhnvr8459 [facility] [id number] Magnesium 1.6 mg/dL (Normal) Range: 1.6-2.3 :55 POTASSIUM SERUM (13307) Comments: PATIENT NOT FASTINGPERFORMED BY: [facility] Yxkcua6093 [facility] [id number]; ov 02/19 Potassium 4.8 mmol/L (Normal) Range: 3.5-5.2 :59 CBC W/Diff, Automated Comments: [facility] [address] [place], [place], [address] Absolute Lymph 2.55 {X10_3/ul} (Normal) Range: 0.83-4.51 [...] 07-Dec-20178:59 Comprehensive Metabolic Profil Comments: [facility] [address] [place], [address] GAP 8 (Normal) Range: 5-15 CO2 32.0 mmol/L (Normal) Range: 21.0-32.0 CL 100 mmol/L (Normal) Range: 98-107 K 3.4 mmol/L (Abnormal) Range: 3.5-5.1 NA 140 mmol/L (Normal) Range: 136-145 T BILI 0.40 mg/dL (Normal) Range: 0.20-1.00 ALT 21 U/L (Normal) Range: 13-56 Comments: Please note revised ALT reference range uhikvyjzl03/28/2018. ALK P 76 U/L (Normal) Range: 45-117 [...] criteria.Please note revised GLUCOSE reference range /02/2018. 4-Akq-023088:40 Microscopic Examination Comments: PATIENT WAS FASTINGPERFORMED BY: [employer] [address] [id number] BY: Güdpod[address] [facility] [place] [id number] Bacteria Few (Normal) Epithelial Cells (non renal) 0-10 {/hpf} (Normal) Range: 0 - 10 RBC None seen {/hpf} (Normal) Range: 0 - 2 WBC 0-5 {/hpf} (Normal) Range: 0 - 5 7-Gvo-390604:40 VITAMIN B-12 (CYANOCOBALAMIN) Comments: PATIENT WAS FASTINGPERFORMED BY: [employer] [address] [id number] BY: G[address]od[address] [facility] [place] [id number] (930[address]) Vitamin B12 470 pg/mL (Normal) Range: 232-1245 5-Bsr-781722:40 CALCIFIDIOL (41091) VIT D Comments: PATIENT WAS FASTINGPERFORMED BY: [employer] [address] [id number] BY: ZettaCorelin[address] [facility] [id number] 25 Vitamin D, 25-Hydroxy 36.1 ng/mL (Normal) Range: 30.0-100.0 Comments: Vitamin D deficiency has been defined by the [place] of[place]icine and an Endocrine Society practice guideline as alevel of serum 25-OH vitamin D less than 20 ng/mL (1,2).The Endocrine Society went on to further define vitamin Dinsufficiency as a level between 21 and 29 ng/mL (2).1. IOM ([place] of Medicine). 2010. Dietary reference intakes for calcium and D. [place]: The National Academies Press.2. Delma MF, Mckenna ABDALLA, Dane MACKENZIE, et al. Evaluation, treatment, and prevention of vitamin D deficiency: an Endocrine Society clinical practice guideline. JCEM. 2010; 96(7):1911-30. 6-Iwu-471694:40 LIPOPROTEIN, BLD, BY NMR Comments: PATIENT WAS FASTINGPERFORMED BY: BN [facility] Mfnmxvxtej0084 [facility] [id number] BY: CB [facility] Kfrbit0900 [facility] [id number] (39029) LP-IR Score 80 (Abnormal) Comments: INSULIN RESISTANCE MARKER <--Insulin Sensitive Insulin Resistant--> Percentile in Reference PopulationInsulin Resistance ScoreLP-IR Score Low 25th 50th 75th High <27 27 45 63 >63LP-IR Score is inaccurate if patient is non-fasting. .The LP-IR score is a laboratory developed i [facility] that has beenassociated with insulin [...] were developed and their performance characteristicsdetermined by [facility]. These assays have not been cleared by [...] 1600 - 2000 Very High > 2000 9-Piw-628394:40 TSH (02016) Comments: PATIENT WAS FASTINGPERFORMED BY: AskU[address] [place] [address] [id number] BY: [employer] Ahuovm2405 [facility] [id number] TSH 1.780 {uIU/mL} (Normal) Range: 0.450-4.500 0-Xwn-936813:40 URINALYSIS, W/ MICRO Comments: PATIENT WAS FASTINGPERFORMED BY: N[employer] Attack[address] [id number] BY: [employer] Rvtsru2536 [facility] [id number] (89709) Microscopic Examination See below: (Normal) Comments: Microscopic was indicated and was performed. Microscopic Examination MICRON (Normal) Comments: Microscopic follows if indicated. Nitrite, Urine Negative (Normal) Urobilinogen,Semi-Qn 0.2 mg/dL (Normal) Range: 0.2-1.0 Bilirubin Negative (Normal) Occult Blood Negative (Normal) Ketones Negative (Normal) Glucose Negative (Normal) Protein Negative (Normal) WBC Esterase Negative (Normal) Appearance Clear (Normal) Urine-Color Yellow (Normal) pH 7.5 (Normal) Range: 5.0-7.5 Specific [place] 1.016 (Normal) Range: 1.005-1.030 1-Hhq-497621:40 MICROALBUMIN: CREATININE Comments: PATIENT WAS FASTINGPERFORMED BY: BitStash[address] [id number] BY: BitStashAlexander [place] 47[address] [facility] [id number] RATIO (24846) AND (19602) Alb/Creat Ratio 8.6 {mg/g_creat} (Normal) Range: 0.0-30.0 Albumin, Urine 4.7 ug/mL (Normal) Creatinine, Urine 54.7 mg/dL (Normal) 2-Wvp-020367:40 METABOLIC PANEL, Comments: PATIENT WAS FASTINGPERFORMED BY: BitStash[address] [id number] BY: BitStashShore Memorial HospitalVwyvfb3688 [facility] [id number] COMPREHENSIVE (95276) ALT (SGPT) 17 [iU]/L (Normal) Range: 0-32 [...] 8-27 Glucose 99 mg/dL (Normal) Range: 65-99 5-Yyp-209047:40 CBC W/AUTO DIFF WBC Comments: PATIENT WAS FASTINGPERFORMED BY: BN [facility] Mkrwmnivxk2190 [facility] [id number] BY: CB [facility] Vtettj7344 [facility] [id number]; ov tomrrow 12/07 (45308) Immature Grans (Abs) 0.0 {x10E3/uL} (Normal) Range: [...] (Normal) Range: 3.4-10.8 :26 HgA1C , Office (89469) HgA1C , Office 6.7 % (Normal) Range: 4.6 - 7.1 :26 Blood Glucose , Office (26189) Blood Glucose , Office 141 (Normal) 7-Xgy-219964:10 CBC W/Diff, Automated Comments: [facility] [address] [place], [address] Absolute Lymph 2.70 {X10_3/ul} (Normal) Range: 0.83-4.51 [...] 4.2-5.4 WBC 7.1 K/mm3 (Normal) Range: 4.4-11.0 5-Lug-757033:10 Comprehensive Metabolic Profil Comments: [facility] [address] [place], [place], [address] GAP 10 (Normal) Range: 5-15 CO2 28.0 mmol/L (Normal) Range: 21.0-32.0 CL 100 mmol/L (Normal) Range: 98-107 K 3.8 mmol/L (Normal) Range: 3.5-5.1 NA 138 mmol/L (Normal) Range: 136-145 T BILI 0.40 mg/dL (Normal) Range: 0.20-1.00 ALT 16 U/L (Normal) Range: 13-56 Comments: Please note revised ALT reference range lclgzifhb81/28/2018. ALK P 81 U/L (Normal) Range: 45-117 [...] 126 mg/dLsuggests DIABETES MELLITUS per A.D.A. criteria. 1-Kex-180908:10 CRP Comments: [facility] [address]ut[address] [place], [id number] C-REACTIVE PROT 4.26 mg/L (Abnormal) Range: 0.0-3.0 Comments: C-Reactive Protein (CRP) provides useful information for thediagnosis, therapy and monitoring of inflammatory processesand associated diseases. For the evaluation of Relative Riskfor Cardiovascular Dise ase, a High Sensitivity CRP (HSCRP)should be ordered. 2-Kvj-253922:10 Erythrocyte Sed Rate Comments: [facility] [address] [place], [address] SED RATE 7 mm/h (Normal) Range: 0-30 07-Sep-20178:49 Rapid Flu (87077 x 2) Influenza A Ag Positive (Normal) Comments: A, no flu shot 3-Vbl-182948:31 Rapid Strep Test, Office (20104) Rapid Strep Test, Office Negative (Normal) :51 THROAT CULTURE (93792) Comments: PATIENT NOT FASTINGPERFORMED BY: [employer] Former[facility] HospitalC3 Online MarketingNovant Health [facility] [id number] Information: SRC:TH Result 1 RRF (Normal) Comments: Routine respiratory vicente Upper Respiratory Final report Culture (Normal) Lipase, Serum 11 U/L (Abnormal) Comments: PATIENT NOT FASTINGPERFORMED BY: [employer]6370 [facility] [id number] :30 Range: 14-85 Written Authorization WAR (Normal) Comments: PATIENT NOT FASTINGPERFORMED BY: [employer] Wutbbc9730 [facility] [id number] :30 Comments: Written Authorization Received.Authorization received from original requistion [id number] by Ann Hartley :30 METABOLIC PANEL, COMPREHENSIVE Comments: stat; PATIENT NOT FASTINGPERFORMED BY: [employer] Oavvri7771 [facility] [id number] (19035) ALT (SGPT) 5 [iU]/L (Normal) Range: 0-32 [...] Glucose, Serum 99 mg/dL (Normal) Range: 65-99 5-Ruw-946635:30 CBC W/AUTO DIFF WBC (01572) Comments: stat; PATIENT NOT FASTINGPERFORMED BY: [facility] Daxevx7723 [facility] [id number] Immature Grans (Abs) 0.0 {x10E3/uL} (Normal) Range: [...] 3.77-5.28 WBC 7.3 {x10E3/uL} (Normal) Range: 3.4-10.8 0-Jia-239119:31 Rapid Flu (02079 x 2) Influenza A Ag Negative (Normal) 31-Bmf-120825:28 HgA1C , Office (11330) HgA1C , Office 6.3 % (Normal) Range: 4.6 - 7.1 16-Lqu-260129:28 Blood Glucose , Office (71408) Blood Glucose , Office 133 (Normal) 39-Cad-168595:27 VITAMIN B-12 (CYANOCOBALAMIN) Comments: PATIENT NOT FASTINGPERFORMED BY: [employer] Formerly [facility] HospitalC3 Online MarketingNovant Health [facility] [id number] (36662) Vitamin B12 258 pg/mL (Normal) Range: 211-946 01-Wtf-185687:27 MAGNESIUM (62065) Comments: PATIENT NOT FASTINGPERFORMED BY: [employer] (Cupon[employer]) Doyle Former[facility] HospitalC3 Online MarketingNovant [facility] [id number] Magnesium, Serum 1.6 mg/dL (Normal) Range: 1.6-2.3 81-Gie-142977:27 Metabolic Panel, Basic Comments: PATIENT NOT FASTINGPERFORMED BY: [employer] [facility] [id number] (72018) Calcium, Serum 9.3 mg/dL (Normal) Range: 8.7-10.3 [...] Urinalysis, Complete Comments: How was Urine Obtained? 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 [place], [place], [id number] MUCUS, URINE 0 SEEN {/hpf} (Normal) BACTERIA [...] :15 CBC W/Diff, Automated Comments: [facility] Ikkbjkxdim8577 [facility] [address]. [place], [place], [address] Absolute Lymph 1.41 {X10_3/ul} (Normal) Range: 0.83-4.51 [...] 4.2-5.4 WBC 7.7 K/mm3 (Normal) Range: 4.4-11.0 79-Ugi-668622:15 Comprehensive Metabolic Profil Comments: [facility] [address]fgimg[address]. [place], [place], [address] GAP 6 (Normal) Range: 5-15 CO2 33.0 [...] 7-18 GLU 101 mg/dL (Normal) Range: 70-110 12-Ndu-792208:09 CBC W/Diff, Automated Comments: [facility] Efxxaxvbja6[address] [place], [address] ; another doc Absolute Lymph 1.90 {X10_3/ul} [...] 4.2-5.4 WBC 6.6 K/mm3 (Normal) Range: 4.4-11.0 50-Yui-387201:09 Comprehensive Metabolic Profil Comments: [facility] [address]umlfby[address] [place], [place], [address] GAP 10 (Normal) Range: 5-15 CO2 25.0 [...] 126 mg/dLsuggests DIABETES MELLITUS per A.D.A. criteria. 68-Luh-775941:09 Lipase Comments: [facility] Gbhxviccab6[address] [place], [address] LIPASE 42 U/L (Abnormal) Range: 73-393 8-Dcq-016729:19 Metabolic Panel, Comprehensive Comments: PATIENT NOT FASTINGPERFORMED BY: [facility] Jxitue8879 [facility] [id number] (31346) ALT (SGPT) 11 [iU]/L (Normal) Range: 0-32 [...] Glucose, Serum 108 mg/dL (Abnormal) Range: 65-99 1-Mph-165652:19 HGB A1C (58769) Comments: PATIENT NOT FASTINGPERFORMED BY: [facility]6370 [facility] [id number] Hemoglobin A1c 5.9 % (Abnormal) Range: 4.8-5.6 Comments: . Pre-diabetes: 5.7 - 6.4 Diabetes: >6.4 Glycemic control for adults with diabetes: <7.0 :19 MAGNESIUM (72777) Comments: PATIENT NOT FASTINGPERFORMED BY: [place] 1449170 [facility] [id number] Magnesium, Serum 1.7 mg/dL (Normal) Range: 1.6-2.3 :19 CBC, Platelets & Auto Diff Comments: PATIENT NOT FASTINGPERFORMED BY: [facility]6370 [facility] [id number] (26408) Immature Grans (Abs) 0.0 {x10E3/uL} (Normal) Range: [...] 3.77-5.28 WBC 9.5 {x10E3/uL} (Normal) Range: 3.4-10.8 16-Ach-990794:41 Comprehensive Metabolic Profil Comments: REDRAW. PREVIOUS SPECIMEN REJECTED DUE TOHEMOLYSIS. 04/28/17 1128 Aura [address].[facility] [address]ft[address]gg[address] [place], [place], [address] GAP 6 (Normal) Range: 5-15 CO2 25.0 [...] 126 mg/dLsuggests DIABETES MELLITUS per A.D.A. criteria. 08-Vnl-186214:05 Urinalysis, Complete Comments: Order Date: 04/28/17Has pt arrived? YHow was Urine Obtained? [facility] SPECIMENWLake[facility] [address]dvrljwlp[address] [place], [place], [id number] AMORPHOUS 1+ (Normal) MUCUS, URINE 0 SEEN [...] CLARITY Sl. Cloudy (Normal) COLOR Yellow (Normal) 89-Aha-795801:00 CBC W/Diff, Automated Comments: [facility] [address]zdhsyxaaj0[address] [place], [address] Absolute Lymph 1.58 {X10_3/ul} (Normal) [...] 4.2-5.4 WBC 25.0 K/mm3 (Abnormal) Range: 4.4-11.0 67-Xjs-438946:00 Lactic Acid Comments: Yes/No query for Sepsis Lactate Rule [facility] Wkayxkcpda50[address] [place], [address] LACTIC ACID 1.6 mmol/L (Normal) Range: 0.4-2.0 52-Cmb-692542:00 Partial Thromboplast Time Comments: [facility] Daygsfzpzi[address] [place], [address] PTT 22.4 s (Abnormal) Range: 24.1-36.2 31-Oor-328926:00 Prothrombin Time w/INR Comments: [facility] Homcslgsnq64[address] [place], [address] INR 1.0 (Normal) PROTIME 12.8 s (Normal) Range: 11.7-14.9 37-Sts-05457:50 Miscellaneous Lab Procedure Comments: Comments: [id number]; URINE TOX; RUN LOWEST TEST IN LABCORPTest(s) Ordered: [id number]; URINE TOX; RUN LOWEST TEST IN [facility] Sysstuxmfo1929 [place], [id number] [facility]: [id number] 6+OXYCODONE-BUND (ng/mL)DRUG RESULT SCREEN CUTOFF____ Amphetamines,Urine Negat LAB (Normal) ananth ng/mL 1000Amphetamine test includes Amphetamine and Methamphetamine.Barbiturates Negative ng/mL 200Benzodiazepines Negative ng/mL 200Cannabinoid TEST Negative ng/mL 20Cocaine (Metab) Negative ng/mL 300Opiates Positive ng/mL 300 Opiates test includes Codeine, Morphine, Hydromorphone, [place] codone.Please Note:Confirmation performed by Mass SpectrometryCodeine Negative 300Morphine Positive Morphine Confirm >3000 ng/mL 300Hydromor phone Negative 300Hydrocodone Negative 300Oxycodone/Oxymorphone,Urine Negative ng/mL 300 Test includes Oxydodone and Oxymorphone. TESTING PERFORMED AT [facility]. ORIGINAL REPORT ON FILE IN LAB CONTAINS ADDITIONAL TEST SITE INFORMATION. :50 Urine Drug Screen (VISTA) Comments: Comments: [id number]; URINE TOX; RUN LOWEST TEST IN LABCOList of Drugs Taken or Suspected? [facility] Xyfkexbesj0023 [place], [id number] THC NEGATIVE (Normal) PCP NEGATIVE (Normal) OPIATES [...] TESTING MUST BE ORDERED SEPARATELY. USE TESTMNEMONIC: [facility] :00 Basic Metabolic Profile (BMP) Comments: 'TROP' Serial specimen #1, #2, #3, or #4: 1[facility] Yy[address]yefoez[address] [place], [place], [address] GAP 10 (Normal) Range: 5-15 CO2 28.0 [...] :00 CBC W/Diff, Automated Comments: [facility] [address]tbzgbopii[address] [place], [place], [address] ; another doc Absolute Lymph 1.20 {X10_3/ul} [...] 4.2-5.4 WBC 4.0 K/mm3 (Abnormal) Range: 4.4-11.0 71-Pmv-61220:00 Lipase Comments: 'TROP' Serial specimen #1, #2, #3, or #4: [address] [place] [address] [place], [address] LIPASE 82 U/L (Normal) Range: 73-393 30-Spb-78078:00 Liver Profile Comments: 'TROP' Serial specimen #1, #2, #3, or #4: [address] [place] [address] Jfujfs[address] [place], [address] D BILI 0.12 mg/dL (Normal) Range: 0.00-0.30 T BILI 0.50 mg/dL (Normal) Range: 0.20-1.00 ALT 13 U/L (Normal) Range: 12-78 ALK P 58 U/L (Normal) Range: 45-117 AST 6 U/L (Abnormal) Range: 15-37 GLOB 3.4 g/dL (Normal) Range: 2.3-3.5 ALB 3.7 g/dL (Normal) Range: 3.4-5.0 T PROT 7.1 g/dL (Normal) Range: 6.4-8.2 80-Grx-37514:00 Troponin-I Comments: 'TROP' Serial specimen #1, #2, #3, or #4: 1[facility] [address]wyiwhd[address] [place], [address] TROPONIN-I < 0.02 ng/mL (Normal) Comments: TROPONIN-I EXPECTED VALUES <0.05 NEGATIVE 0.06 - 0.59 AT RISK OF UT > OR = 0.60 SUGGEST UT 72-Ewz-351867:01 Renal Profile Comments: Order Date: 01/17/17Order Info: [id number] - RENALOrder Info: [id number] - MGOrder Date: 01/17/17Order Info: [id number] - MGM[facility] Cpuxuswboa7[address] [place], [phone] CO2 31.0 mmol/L (Normal) Range: 21.0-32.0 CL [...] 7-18 GLU 102 mg/dL (Normal) Range: 70-110 99-Bkq-656628:01 MAGNESIUM (94454) Comments: Order Date: 01/17/17Order Info: [id number] - RENALOrder Info: [id number] - MGOrder Date: 01/17/17Order Info: [id number] - MGWooMartins [facility]erry [facility] [address]upywt[address] [place], [phone] MG 1.5 mg/dL (Abnormal) Range: 1.8-2.4 Comments: Moderate Hemolysis, Result may be falsely increased. 53-Kpl-593563:25 CBC W/Diff, Automated Comments: [facility] [address] [place], [address] Absolute Lymph 1.62 {X10_3/ul} (Normal) Range: 0.83-4.51 [...] 4.2-5.4 WBC 10.3 K/mm3 (Normal) Range: 4.4-11.0 14-Evc-768932:25 Comprehensive Metabolic Profil Comments: 'TROP' Serial specimen #1, #2, #3, or #4: [address] [place] [address] [address] [place], [place], [address] GAP 10 (Normal) Range: 5-15 CO2 29.0 [...] <126 mg/dLsuggests IMPAIRED HOMEOSTASIS per A.D.A. criteria. 73-Ugx-562208:25 Lipase Comments: 'TROP' Serial specimen #1, #2, #3, or #4: [address] [place] [address] [address] [place], [place], [address] LIPASE 52 U/L (Abnormal) Range: 73-393 80-Xkb-402060:25 Partial Thromboplast Time Comments: [facility] T[address]sxanowod[address] [place], [place], [address] PTT 32.0 s (Normal) Range: 24.1-36.2 26-Rsl-284842:25 Prothrombin Time w/INR Comments: [facility] [address]pat[address]lypn6[address] [place], [place], [address] INR 1.0 (Normal) PROTIME 13.1 s (Normal) Range: 11.7-14.9 81-Czn-173818:25 Troponin-I Comments: 'TROP' Serial specimen #1, #2, #3, or #4: [address] [place] [address] Fcenivopza[address] 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 [place], [address] MUCUS, URINE 0 SEEN {/hpf} (Normal) BACTERIA [...] CLARITY Sl. Cloudy (Normal) COLOR Yellow (Normal) 75-Uzr-684928:09 CBC W/Diff, Automated Comments: [facility] Eyryzkndwh[address] [place], [address] Absolute Lymph 1.33 {X10_3/ul} (Normal) Range: 0.83-4.51 [...] 4.2-5.4 WBC 5.7 K/mm3 (Normal) Range: 4.4-11.0 94-Chn-624807:09 Comprehensive Metabolic Profil Comments: 'TROP' Serial specimen #1, #2, #3, or #4: 1[facility] [address]ak[address] [place], [place], [address] GAP 8 (Normal) Range: 5-15 CO2 33.0 [...] <126 mg/dLsuggests IMPAIRED HOMEOSTASIS per A.D.A. criteria. 60-Gye-654343:09 Lactic Acid Comments: [facility] [address]bfb[address] [place], [address] LACTIC ACID 1.5 mmol/L (Normal) Range: 0.4-2.0 66-Esy-929278:09 Lipase Comments: 'TROP' Serial specimen #1, #2, #3, or #4: [address] [place] [address] [address]rlmrmsjs[address] [place], [address] LIPASE 40 U/L (Abnormal) Range: 73-393 :09 Partial Thromboplast Time Comments: [facility] [address]vnvrcf[address] [place], [address] PTT 38.3 s (Abnormal) Range: 24.1-36.2 :09 Prothrombin Time w/INR Comments: [facility] [address] [place], [address] INR 1.3 (Normal) PROTIME 15.8 s (Abnormal) Range: 11.7-14.9 :09 Troponin-I Comments: 'TROP' Serial specimen #1, #2, #3, or #4: [address] [place] [address] [address]fl[address] [place], [address] TROPONIN-I < 0.02 ng/mL (Normal) Comments: TROPONIN-I EXPECTED VALUES <0.05 NEGATIVE 0.06 - 0.59 AT RISK OF UT > OR = 0.60 SUGGEST UT 52-Wvx-392639:52 Potassium Comments: [facility] Rjorbruumt6[address] [place], [id number] K 3.4 mmol/L (Abnormal) Range: 3.5-5.1 09-Iai-30294:10 Basic Metabolic Profile (BMP) Comments: DR AVINA ORDERED: BMP, CBC, MRSADR.NOELLE ORDERED: [facility] Gfredwkuuy60[address] [place], [address] GAP 12 (Normal) Range: 5-15 CO2 27.0 [...] 126 mg/dLsuggests DIABETES MELLITUS per A.D.A. criteria. 68-Bkx-67696:10 CBC-Complete Blood Cnt No Diff Comments: DR AVINA ORDERED: BMP, CBC, MRSADRNIGEL ORDERED: ESTEBAN AVINA ORDERED: BMP, CBC, HANSADRNIGEL ORDERED: [facility] Vlxmxthcib2589 [facility], [address] MPV 10.8 fL (Normal) Range: 6.2-12.0 PLT [...] 4.2-5.4 WBC 7.1 K/mm3 (Normal) Range: 4.4-11.0 82-Wbf-22804:10 MRSA/SAID SCREEN Comments: [facility] [address]ubujkigc[address] [place], [address] ; another doc MRSA+SAID SCRN See Note (Normal) Comments: DR AVINA ORDERED: BMP, CBC, MRSA ORDERED: K MRSA/SAID SCRNS. AUREUS S. aureus NegativeMRSA MRSA Negative :09 MAGNESIUM (35756) Comments: PATIENT NOT FASTINGPERFORMED BY: [employer]6370 [facility] [id number] Magnesium, Serum 1.7 mg/dL (Normal) Range: 1.6-2.3 :09 Metabolic Panel, Basic Comments: PATIENT NOT FASTINGPERFORMED BY: [facility] Meawcx4313 [facility] [id number] ([id number]) Calcium, Serum 8.7 mg/dL (Normal) Range: 8.7-10.3 [...] Glucose, Serum 97 mg/dL (Normal) Range: 65-99 73-Byo-193832:45 Urinalysis, Complete Comments: How was Urine Obtained? RV REPAIR TECHNICIAN TO SPECIFYMer[facility] [address]wfuzwy16[address] [place], [address] MUCUS, URINE RARE {/hpf} (Normal) BACTERIA RARE [...] (Normal) CLARITY Cloudy (Normal) COLOR Yellow (Normal) 28-Cvr-438983:53 CBC W/Diff, Automated Comments: [facility] Ozvbgebgeu39[address] [place], [place], [address] Absolute Lymph 1.08 {X10_3/ul} (Normal) Range: 0.83-4.51 [...] 4.2-5.4 WBC 6.1 K/mm3 (Normal) Range: 4.4-11.0 87-Tfn-335906:53 Comprehensive Metabolic Profil Comments: [facility] Sltomvsyzv[address] [place], [address] GAP 12 (Normal) Range: 5-15 CO2 27.0 [...] criteria. :53 Lactic Acid Comments: [facility] Krbluspqap[address] [place], [place], [address] LACTIC ACID 2.2 mmol/L (Abnormal) Range: 0.4-2.0 :53 Partial Thromboplast Time Comments: [facility] [address]qghsevt[address] [place], [address] PTT 32.1 s (Normal) Range: 24.1-36.2 :53 Prothrombin Time w/INR Comments: [facility] Bodncmrhkc[address] [place], [place], [address] INR 1.0 (Normal) PROTIME 13.2 s (Normal) Range: 11.7-14.9 :54 Basic Metabolic Profile (BMP) Comments: [facility] [address]rsktsr[address] [place], [place], [address] GAP 10 (Normal) Range: 5-15 CO2 29.0 [...] Blood Cnt No Diff Comments: [facility] [address] [place], [place], [id number] MPV 10.1 fL (Normal) Range: 6.2-12.0 PLT [...] 4.4-11.0 :54 Hemoglobin A1c Comments: [facility] Viwtqrtrtm39[address] [place], [place], [address] HGB A1C 6.4 % (Abnormal) Range: 4.2-6.3 :54 Liver Profile Comments: [facility] [address]wmq[address] [place], [place], [address] D BILI 0.27 mg/dL (Normal) Range: 0.00-0.30 T BILI 0.80 mg/dL (Normal) Range: 0.20-1.00 ALT 12 U/L (Normal) Range: 12-78 ALK P 82 U/L (Normal) Range: 45-117 AST 10 U/L (Abnormal) Range: 15-37 GLOB 3.5 g/dL (Normal) Range: 2.3-3.5 ALB 3.2 g/dL (Abnormal) Range: 3.4-5.0 T PROT 6.7 g/dL (Normal) Range: 6.4-8.2 :54 MRSA/SAID SCREEN Comments: [facility] [address] [place], [address] MRSA+SAID SCRN See Note (Normal) Comments: MRSA/SAID SCRNS. AUREUS S. aureus NegativeMRSA MRSA Negative :54 Partial Thromboplast Time Comments: [facility] [address] [place], [place], [address] PTT 40.7 s (Abnormal) Range: 24.1-36.2 :54 Prothrombin Time w/INR Comments: [facility] Az[address] [place], [address] INR 1.1 (Normal) PROTIME 14.3 s (Normal) Range: 11.7-14.9 :55 CBC W/Diff, Automated Comments: [facility] Y[address] [place], [address] Absolute Lymph 1.18 {X10_3/ul} (Normal) [...] 4.2-5.4 WBC 13.8 K/mm3 (Abnormal) Range: 4.4-11.0 33-Huq-04605:55 Comprehensive Metabolic Profil Comments: [facility] Dbcgndueta22[address] [place], [address] GAP 12 (Normal) Range: 5-15 CO2 24.0 [...] DIABETES MELLITUS per A.D.A. criteria. :22 MAGNESIUM (16642) Comments: PATIENT NOT FASTINGPERFORMED BY: [facility]6370 [facility] [id number] Magnesium, Serum 1.5 mg/dL (Abnormal) Range: 1.6-2.3 :22 POTASSIUM SERUM (01507) Comments: PATIENT NOT FASTINGPERFORMED BY: [facility]6370 [facility] [id number] Potassium, Serum 4.0 mmol/L (Normal) Range: 3.5-5.2 :13 Rapid Flu (98171 x 2) Influenza A Ag negative (Normal) :42 VITAMIN B12 AND FOLATES Comments: PATIENT NOT FASTINGPERFORMED BY: [facility]6370 [facility] [id number] (64505) Folate (Folic Acid), Serum 18.3 ng/mL (Normal) Comments: A serum folate concentration of less than 3.1 ng/mL isconsidered to represent clinical deficiency. Vitamin B12 650 pg/mL (Normal) Range: 211-946 :42 TSH (35371) Comments: PATIENT NOT FASTINGPERFORMED BY: [facility]6370 [facility] [id number] TSH 1.610 {uIU/mL} (Normal) Range: 0.450-4.500 00-Rub-926582:42 Metabolic Panel, Comprehensive Comments: PATIENT NOT FASTINGPERFORMED BY: [facility]6370 [facility] [id number] (36591) ALT (SGPT) 9 [iU]/L (Normal) Range: 0-32 [...] (Normal) Range: 65-99 :26 HgA1C , Office (54449) HgA1C , Office 6.8 % (Normal) Range: 4.6 - 7.1 :26 Blood Glucose , Office (77075) Blood Glucose , Office 110 (Normal) :10 Culture, Body Fluid Comments: [facility] Mwcoaqiczz6125 [facility] [place], [address] ; Another doc CUBF See [...] Fluid RBC, WBC AND Comments: LEFT KNEELEFT KNEEWLakeHealth [facility] Jppdftjrje3609 [facility] [place], [address] ; another doc Diff PATH [...] :30 Crystals, Body Fluid Comments: LEFT [facility] [address]ork[address] [place], [address] PATH REV Reviewed (Normal) SOURCE/BF SYNOVIAL (Normal) CRYSTALS/BF SEE PATH REV (Normal) :30 Culture, Body Fluid Comments: [facility] [address] [place], [address] CUBF See Note (Normal) Comments: List Antibiotics Last 48 Hours? UNKList Antibiotics to be Started? UNKComments: LEFT KNEEGram StainCentrifuged Specimen? Culture performed on centrifuged specimen Gram Stain 2+ Red Blood Donya ls No White Blood Cells No organisms seen Body Fluid CultNO GROWTH IN 14 DAYS Cult, AnaerobicNo growth in 5 days. :48 CBC W/Diff, Automated Comments: [facility] [address] [place], [address] Absolute Lymph 2.23 {X10_3/ul} (Normal) [...] 4.2-5.4 WBC 7.0 K/mm3 (Normal) Range: 4.4-11.0 1-Luk-110324:48 Comprehensive Metabolic Profil Comments: [facility] V[address]qdzsncl[address] [place], [place], [address] GAP 10 (Normal) Range: 5-15 CO2 29.0 [...] 7-18 GLU 99 mg/dL (Normal) Range: 70-110 36-Yag-16577:32 Comprehensive Metabolic Profil Comments: [facility] [address]bulkbd67[address] [place], [address] GAP 8 (Normal) Range: 5-15 CO2 31.0 [...] <126 mg/dLsuggests IMPAIRED HOMEOSTASIS per A.D.A. criteria. 15-Rkw-89349:32 Culture, Urine Comments: [facility] Fhzvqukogq5409 [facility] [address]. [place], [place], [address] CUUR See Note (Normal) Comments: Urine CultureORGANISM [...] S(NF) indicates non-formulary drug at [facility]. Approval by Infectious Disease Specialist required before non- formulary drugs may be ordered and/or dispensed. 45-Cao-596554:08 Urinalysis, Complete Comments: How was Urine Obtained? CLEAN [facility] Agrwcmjuyx5893 [facility] [address]. [place], [place], [address] MUCUS, URINE 0 SEEN {/hpf} (Normal) BACTERIA [...] (Normal) COLOR Yellow (Normal) :56 POTASSIUM SERUM (61123) Comments: PATIENT NOT FASTINGPERFORMED BY: BitStashShore Memorial HospitalZuzkua3921 [facility] [id number] Potassium, Serum 4.4 mmol/L (Normal) Range: 3.5-5.2 :56 MAGNESIUM (05250) Comments: PATIENT NOT FASTINGPERFORMED BY: BitStashShore Memorial HospitalCgodsu6239 [facility] [id number] Magnesium, Serum 1.5 mg/dL (Abnormal) Range: 1.6-2.3 :29 CBC WITH MANUAL DIFF Comments: PATIENT WAS FASTINGPERFORMED BY: [facility]StashShore Memorial HospitalEgjeks9748 [facility] [id number] Information: [id number] (42764) Immature Grans (Abs) 0.0 {x10E3/uL} (Normal) Range: [...] 3.77-5.28 WBC 5.8 {x10E3/uL} (Normal) Range: 3.4-10.8 6-Yjh-996055:15 CBC, Platelets & Auto Diff Comments: PATIENT NOT FASTINGPERFORMED BY: [facility] Topvjr1182 [facility] [id number] (53602) Immature Grans (Abs) 0.0 {x10E3/uL} (Normal) Range: [...] 3.77-5.28 WBC 14.0 {x10E3/uL} (Abnormal) Range: 3.4-10.8 0-Igi-570200:15 Metabolic Panel, Comprehensive Comments: PATIENT NOT FASTINGPERFORMED BY: [facility]StashShore Memorial HospitalMttcrn6558 [facility] [id number] (72388) ALT (SGPT) 14 [iU]/L (Normal) Range: 0-32 [...] Glucose, Serum 98 mg/dL (Normal) Range: 65-99 04-Rxl-773879:28 Metabolic Panel, Comments: PATIENT WAS FASTINGPERFORMED BY: [facility]StashShore Memorial HospitalOidife5893 [facility] [id number] Information: [id number] Comprehensive (24140) ALT (SGPT) 13 [iU]/L (Normal) Range: 0-32 [...] Glucose, Serum 110 mg/dL (Abnormal) Range: 65-99 4-Tob-553570:54 Urinalysis, Office (14812) UA - LEUKOCYTE ESTERASE Trace (Normal) UA - NITRITE Negative (Normal) URINE UROBILINGN JEWELS TIMED Normal mg/dL (Normal) UA - PROTEIN Negative mg/dL (Normal) UA - PH 6 (Abnormal) UA - BLOOD Negative (Normal) UA - SPECIFIC GRAVITY 1.015 (Normal) UA - KETONES Moderate mg/dL (Normal) UA - BILIRUBIN Negative (Normal) UA - GLUCOSE Negative (Normal) 27-Cxx-943919:21 Basic Metabolic Profile (BMP) Comments: [facility] [address]rm[address]qrx[address] [place], [address] GAP 9 (Normal) Range: 5-15 [...] 200 mg/dLsuggests DIABETES MELLITUS per A.D.A. criteria. 60-Ikk-233994:21 CBC W/Diff, Automated Comments: [facility] [address] [place], [address] Absolute Lymph 3.53 {X10_3/ul} (Normal) [...] 4.2-5.4 WBC 13.8 K/mm3 (Abnormal) Range: 4.4-11.0 66-Rfc-164599:21 Urinalysis, Complete Comments: Order Date: 04/25/16How was Urine Obtained? [facility] C[address]pjbknsx[address] [place], [address] MUCUS, URINE 0 SEEN {/hpf} [...] (Normal) CLARITY Cloudy (Normal) COLOR Yellow (Normal) 84-Wco-526289:20 Lactic Acid Comments: [facility] [address]xhgfys[address] [place], [address] LACTIC ACID 4.8 mmol/L (Abnormal) Range: 0.4-2.0 Comments: Critical Result(s) Called at: 19:26:18 04/25/2016 by:Tiffany Oliva RN :32 CBC W/Diff, Automated Comments: [facility] Ddbxveuqva[address] [facility] [address] [place], [place], [address] Absolute Lymph 1.94 {X10_3/ul} (Normal) Range: 0.83-4.51 [...] :32 Comprehensive Metabolic Profil Comments: [facility] Odvmjermpy39[address] [place], [address] GAP 9 (Normal) Range: 5-15 [...] 126 mg/dLsuggests DIABETES MELLITUS per A.D.A. criteria. 78-Yxi-877738:01 CBC W/Diff, Automated Comments: [facility] [id number] [place], [place], [id number] Absolute Lymph 2.12 {X10_3/ul} (Normal) Range: 0.83-4.51 [...] 4.2-5.4 WBC 9.9 K/mm3 (Normal) Range: 4.4-11.0 [id number] CRP Comments: [facility] [id number] [place], [address] C-REACTIVE PROT < 2.90 mg/L (Normal) Range: 0.0-3.0 Comments: C-Reactive Protein (CRP) provides useful information for thediagnosis, therapy and monitoring of inflammatory processesand associated diseases. For the evaluation of Relative Riskfor Cardiovascular Dise ase, a High Sensitivity CRP (HSCRP)should be ordered. [id number] Erythrocyte Sed Rate Comments: [facility] [id number] [place], [place], [id number] SED RATE 10 mm/h (Normal) Range: 0-30 [id number] CK-MB Quantitative and Index Comments: 'TROP' Serial specimen #1, #2, #3, or #4: 1'CKMB' Serial Specimen #1, #2 or #3? [facility] [id number] [place], [place], [id number] CKRI 1.5 % (Abnormal) Range: 0.0-1.4 Comments: RELATIVE INDEX >1.5% IS PRESUMPTIVELY POSITIVE CPKMB 1.0 ng/mL (Normal) Range: 0.0-5.0 Comments: CK-MB and RI Interpretation MB Relative Index Non-AMI <or= 5 NA Indeterminate > 5 <or= 4 AMI > 5 > 4 CPK TOTAL 65 U/L (Normal) Range: 26-192 [id number] Myoglobin, Serum Comments: [facility] (refer to report for specific site)refer to report for address and phone number Myoglobin, Ser 42 ng/mL (Normal) Range: 25-58 Comments: Performed at: [address] [address] [id number] Director: Edil Robertson PhD, Phone: [phone] 78-Rjw-062022:13 Troponin-I Comments: 'TROP' Serial specimen #1, #2, #3, or #4: 1'CKMB' Serial Specimen #1, #2 or #3? 1[facility] [address] [place] [address], [id number] TROPONIN-I < 0.02 ng/mL (Normal) Comments: TROPONIN-I EXPECTED VALUES <0.05 NEGATIVE 0.06 - 0.59 AT RISK OF UT > OR = 0.60 SUGGEST UT 66-Wpt-271369:19 URINE HANSA CULTURE-JEWELS COL Comments: PATIENT NOT FASTINGPERFORMED BY: [address] [id number] Information: SRC:[facility] [id number] COUNT ([id number]) Antimicrobial MIHEAD (Normal) Comments: S = Susceptible; [...] mL (Abnormal) Urine Final report Culture,Comprehensive (Abnormal) 40-Iuk-955837:54 Urinalysis, Office (60043) UA - LEUKOCYTE ESTERASE Small (Normal) UA - NITRITE Positive (Normal) URINE UROBILINGN JEWELS TIMED Normal mg/dL (Normal) UA - PROTEIN Trace mg/dL (Normal) UA - PH 7 (Normal) UA - BLOOD Negative (Normal) UA - SPECIFIC GRAVITY 1.025 (Normal) UA - KETONES Small mg/dL (Normal) UA - BILIRUBIN Small (Normal) UA - GLUCOSE Negative (Normal) 31-Vys-154878:38 Blood Glucose , Office (24920) Blood Glucose , Office 85 (Normal) :38 Basic Metabolic Profile (BMP) Comments: Is Patient Taking Vitamins or Folic Acid Supplements? [facility] [address] [place], [place], [address] GAP 9 (Normal) Range: 5-15 CO2 28.0 [...] Patient Taking Vitamins or Folic Acid Supplements? [facility] Airkjnakou[address] [place], [place], [id number] FOLATES 13.40 ng/mL (Normal) Range: 3.1-17.5 :38 Vitamin B12 723 pg/mL (Normal) Comments: [facility] Gueuiouxma0779 BLAIR Robert, [id number] Range: 211-911 :32 CBC W/Diff, Automated Comments: [facility] [address] [place], [address] ; ordered by Dr. Colmenares Absolute Lymph [...] :32 Comprehensive Metabolic Profil Comments: [facility] [address]fl[address]imm[address] [place], [place], [address] GAP 5 (Normal) Range: 5-15 CO2 31.0 [...] mg/dL (Normal) Range: 70-110 :03 LIPID PANEL (77284) Comments: PATIENT WAS FASTINGPERFORMED BY: CB [facility] Qsxrxd3066 [facility] [id number] BY: BN [facility] [address] [id number] LDL/HDL Ratio 3.2 {ratio_units} (Normal) Range: 0.0-3.2 [...] 1, 25-DIHYDROXY Comments: PATIENT WAS FASTINGPERFORMED BY: [employer] [facility] [id number] BY: [place] [id number] (88010) Calcitriol(1,25 di-OH Vit D) 51.7 pg/mL (Normal) Range: 19.9-79.3 :03 MICROALBUMIN: CREATININE Comments: PATIENT WAS FASTINGPERFORMED BY: [employer] (Cuponium) [facility] [id number] BY: [place] [id number] RATIO (59355) AND (06441) Microalb/Creat Ratio 35.5 {mg/g_creat} (Abnormal) Range: 0.0-30.0 Microalbumin, Urine 42.6 ug/mL (Abnormal) Range: 0.0-17.0 Creatinine, Urine 120.0 mg/dL (Normal) Range: 15.0-278.0 :03 METABOLIC PANEL, Comments: PATIENT WAS FASTINGPERFORMED BY: [employer] Gbkhzt1599 [facility] [id number] BY: Equipois[address] [id number] COMPREHENSIVE (66008) ALT (SGPT) 14 [iU]/L (Normal) Range: 0-32 [...] Glucose, Serum 137 mg/dL (Abnormal) Range: 65-99 05-Ndr-16314:03 CBC, PLATELETS & AUT DIFF Comments: PATIENT WAS FASTINGPERFORMED BY: CB [facility] Simbdk7101 [facility] [id number] BY: [facility] [address] [id number] Information: [id number] (27449) Immature Grans (Abs) 0.0 {x10E3/uL} (Normal) Range: [...] (THYROID STIMULATING Comments: PATIENT WAS FASTINGPERFORMED BY: [employer] [facility] [id number] BY: BitStash[address] [id number] HORMONE) (67968) TSH 3.840 {uIU/mL} (Normal) Range: 0.450-4.500 :03 VITAMIN B12 AND FOLATES Comments: PATIENT WAS FASTINGPERFORMED BY: [employer] ([employer]) [facility] [id number] BY: Equipois[address] [id number] (17974) Folate (Folic Acid), Serum 14.3 ng/mL (Normal) Comments: A serum folate concentration of less than 3.1 ng/mL isconsidered to represent clinical deficiency. Vitamin B12 742 pg/mL (Normal) Range: 211-946 :56 HgA1C , Office (70328) HgA1C , Office 6.8 % (Normal) Range: 4.6 - 7.1 :56 Blood Glucose , Office (45374) Blood Glucose , Office 128 (Normal) :36 CBC W/Diff, Automated Comments: [facility] [address] [place], [place], [address] Absolute Lymph 2.25 {X10_3/ul} (Normal) Range: 0.83-4.51 [...] Range: 4.4-11.0 :36 Comprehensive Metabolic Profil Comments: [facility] [address] [place], [address] GAP 8 (Normal) Range: 5-15 CO2 28.0 [...] 126 mg/dLsuggests DIABETES MELLITUS per A.D.A. criteria. 4-Rzq-883826:12 ANTINUCLEAR ANTIBODIES DIRECT Comments: [facility] (refer to report for specific site)refer to report for address and phone number [place]ERTON-DIRECT Negative (Normal) Comments: Performed at: - [facility] [id number] Director: Edil Robertson PhD, Phone: [phone] 4-Qwn-988255:12 CBC W/Diff, Automated Comments: [facility] [address] [place], [address] Absolute Lymph 1.93 {X10_3/ul} (Normal) [...] report for address and phone number ANTI-CCP [id number] 4 {units} (Normal) Range: 0-19 Comments: Negative <20 Weak positive 20 - 39 Moderate positive 40 - 59 Strong positive >59 :12 Comprehensive Metabolic Profil Comments: [facility] [address] [place], [place], [address] GAP 6 (Normal) Range: 5-15 CO2 33.0 [...] 7-18 GLU 95 mg/dL (Normal) Range: 70-110 4-Olu-540860:12 Hep B Surface Antibodies Comments: [facility] (refer to report for specific site)refer to report for address and phone number Hep B Loi AB Reactive (Normal) Comments: Non Reactive: Inconsistent with immunity, less than 10 mIU/mL Reactive: Consistent with immunity, greater than 9.9 mIU/mL 4-Dwu-381577:12 Hepatitis B Surface Ag Comments: [facility] (refer to report for specific site)refer to report for address and phone number HB SURF AG Negative (Normal) 9-Mka-132995:12 Hepatitis B Core AB IgM Comments: [facility] (refer to report for specific site)refer to report for address and phone number HB CORE [id number] Negative (Normal) Comments: Performed at: - [facility] [id number] Director: Edil Robertson PhD, Phone: [phone] at: 2Q - [facility] QSV3007 [place], [place] [id number] Director: Jared Rodriguez PhD, Phone: [phone] at: - [facility] [id number] Director: Dylan Matthews MD, Phone: [phone] 6-Usd-547819:12 Hepatitis C Antibodies Comments: [facility] (refer to [...] a more specific supplemental or PCR testing. [facility] offers HCV Ab w/Reflex to Verification test #544003. :12 HLA B27 Negative (Normal) Comments: [facility] (refer to report for specific site)refer to report for address and phone number Comments: HLA-B*27 NegativeHLA allele interpretation for all loci based on IMGT/HLAdatabase version 3.15A [facility] County HospitalIA ID Number [id number] test was performed using PCR (Polymerase ChainReaction)/SSOP (Sequence Specific Oligonucleotide Probes)technique. SBT (Sequence Based Typing) and/or SSP(Sequence Specific Primers) may be used as supplementalmethods when necessary. Please contact HLA CustomerService at [phone] if you have any questions. Director of HLA Laboratory Dr Jared Rodriguez, PhD :12 Rheumatoid Factor Comments: [facility] [address] [place], [address] RHEUMATOID FAC < 10.0 {IU/mL} (Normal) 9-Qdq-464290:12 Vitamin D,25 Hydroxy Comments: [facility] [address]vfvekmdrh[address] [place], [address] Vitamin D 25-OH 50.9 ng/mL (Normal) Comments: Vitamin D 25(OH) Status Range Deficiency <20 ng/mL (50nmol/L) Insuffciency 20 - 30 ng/mL (50 - 75 nmol/L) Sufficiency 30 - 100 ng/mL (75 - 250 nmol/L) Toxicity >100 ng/mL (>250 nmol/L) 47-Ikc-08639:37 LIPID PANEL (77516) Comments: PATIENT WAS FASTINGPERFORMED BY: [facility] [id number] LDL/HDL Ratio 2.8 {ratio_units} (Normal) Range: 0.0-3.2 [...] - 169 >19 years 100 - 199 99-Kjr-57863:37 CBC, PLATELETS & AUT DIFF Comments: PATIENT WAS FASTINGPERFORMED BY: Vert[employer] LabCoNextCareWhsbjs8106 [facility] [id number] Information: [id number] (06738) Immature Grans (Abs) 0.0 {x10E3/uL} (Normal) Range: [...] B-12 (CYANOCOBALAMIN) Comments: PATIENT WAS FASTINGPERFORMED BY: [employer] Zpqvhs3096 Add[place]Bestin [place] [id number] (39925) Vitamin B12 871 pg/mL (Normal) Range: 211-946 :37 Vitamin D Hydroxy (07894) Comments: PATIENT WAS FASTINGPERFORMED BY: Vertro LabSpottlyrp Zopywx1251 Doyle [place] [id number] Vitamin D, 25-Hydroxy 69.6 ng/mL (Normal) Range: 30.0-100.0 Comments: Vitamin D deficiency has been defined by the [place] of[place]icine and an Endocrine Society practice guideline as alevel of serum 25-OH vitamin D less than 20 ng/mL (1,2).The Endocrine Society went on to further define vitamin Dinsufficiency as a level between 21 and 29 ng/mL (2).1. IOM ([place] of Medicine). 2010. Dietary reference intakes for calcium and D. [place]: The National Academies Press.2. Delma MF, Mckenna ABDALLA, Dane MACKENZIE, et al. Evaluation, treatment, and prevention of vitamin D deficiency: an Endocrine Society clinical practice guideline. JCEM. 2010; 96(7):1911-30. :37 METABOLIC PANEL, COMPREHENSIVE Comments: PATIENT WAS FASTINGPERFORMED BY: [facility] Plqwet0514 [facility] [id number]; apt. 07-01-15 (97098) ALT (SGPT) 10 [iU]/L (Normal) Range: 0-32 [...] (Abnormal) Range: 65-99 :02 HgA1C , Office (46810) HgA1C , Office 7.1 % (Normal) Range: 4.6 - 7.1 :24 EBV Panel (43505) Comments: PATIENT NOT FASTINGPERFORMED BY: [facility]University [facility] Health6370 [facility] [id number] Interpretation: SPRCS (Normal) Comments: EBV Interpretation Chart [...] DIFF WBC Comments: PATIENT NOT FASTINGPERFORMED BY: [facility]6370 [facility] [id number] Information: [id number] (29601) Immature Grans (Abs) 0.0 {x10E3/uL} (Normal) Range: [...] 3.77-5.28 WBC 6.7 {x10E3/uL} (Normal) Range: 3.4-10.8 33-Oog-827214:37 HANSA CULTURE-OTHER (22915) Comments: PATIENT NOT FASTINGPERFORMED BY: BitStashLovelace Women's HospitalXbmnxw3973 [facility] [id number] Information: SRC:THRT [id number] Result 1 RRF (Normal) Comments: Routine respiratory vicente Upper Respiratory Culture Final report (Normal) 37-Gmn-709308:30 Rapid Strep Test, Office (46818) Rapid Strep Test, Office Negative (Normal) 06-Feb-20159:15 CBC, Platelet, No Differential Comments: PATIENT WAS FASTINGPERFORMED BY: [employer] Uysvce2682 [facility] [id number] Platelets 245 {x10E3/uL} (Normal) Range: 150-379 RDW [...] Panel (14) Comments: PATIENT WAS FASTINGPERFORMED BY: LabCoShore Memorial HospitalAtkobv3376 [facility] [id number] Information: [id number] ALT (SGPT) 8 [iU]/L (Normal) Range: 0-32 [...] With LDL/HDL Comments: PATIENT WAS FASTINGPERFORMED BY: [facility]oisUniversity [facility] Health6370 [facility] [id number] Ratio LDL/HDL Ratio 3.7 {ratio_units} Range: 0.0-3.2 [...] pg/mL (Normal) Comments: PATIENT WAS FASTINGPERFORMED BY: [facility]oisUniversity [facility] Health6370 [facility] [id number] :15 Range: 211-946 Vitamin D, 25-Hydroxy 56.4 ng/mL (Normal) Comments: PATIENT WAS FASTINGPERFORMED BY: [facility]6370 [facility] [id number] :15 Range: 30.0-100.0 Comments: Vitamin D deficiency has been defined by the [place] of[place]icine and an Endocrine Society practice guideline as alevel of serum 25-OH vitamin D less than 20 ng/mL (1,2).The Endocrine Society went on to further define vitamin Dinsufficiency as a level between 21 and 29 ng/mL (2).1. IOM ([place] of Medicine). 2010. Dietary reference intakes for calcium and D. [place]: The National Academies Press.2. Mckenna Christie, Dane MACKENZIE, et al. Evaluation, treatment, and prevention of vitamin D deficiency: an Endocrine Society clinical practice guideline. JCEM. 2010; 96(7):1911-30. :33 HgA1C , Office (24864) HgA1C , Office 6.4 % (Normal) Range: 4.6 - 7.1 :27 Potassium Comments: Test performed at:[facility] [address] [place] [address] K 3.5 mmol/L (Normal) Range: 3.5-5.1 :59 Vitamin D Hydroxy (40831) Comments: PATIENT NOT FASTINGPERFORMED BY: [place] [id number] Vitamin D, 25-Hydroxy 40.6 ng/mL (Normal) Range: 30.0-100.0 Comments: Vitamin D deficiency has been defined by the [place] of[place]icine and an Endocrine Society practice guideline as alevel of serum 25-OH vitamin D less than 20 ng/mL (1,2).The Endocrine Society went on to further define vitamin Dinsufficiency as a level between 21 and 29 ng/mL (2).1. IOM ([place] of Medicine). 2010. Dietary reference intakes for calcium and D. [place]: The National Academies Press.2. Delma RIVERA, Mckenna ABDALLA, Dane MACKENZIE, et al. Evaluation, treatment, and prevention of vitamin D deficiency: an Endocrine Society clinical practice guideline. JCEM. 2010; 96(7):1911-. :59 T4, FREE (THYROXINE) Comments: PATIENT NOT FASTINGPERFORMED BY: Güdpod70 [place]Bestin [place] [id number] Information: [id number] (98397) T4,Free(Direct) 1.22 ng/dL (Normal) Range: 0.82-1.77 :59 T3, FREE (TRIDOTHYRONINE) (93136) Comments: PATIENT NOT FASTINGPERFORMED BY: [place] Wind[place] [id number] Triiodothyronine,Free,Serum 3.2 pg/mL (Normal) Range: 2.0-4.4 :59 TSH (34868) Comments: PATIENT NOT FASTINGPERFORMED BY: LabUniversity [facility]6370 [facility] [id number] TSH 2.460 {uIU/mL} (Normal) Range: 0.450-4.500 :59 SED RATE ERYTHROCYTE (16609) Comments: PATIENT NOT FASTINGPERFORMED BY: LabUniversity [facility] Health6370 [facility] [id number] Sedimentation Rate-Westergren 3 mm/h (Normal) Range: 0-40 :59 C-REACTIVE PROTEIN (97124) Comments: PATIENT NOT FASTINGPERFORMED BY: [facility]6370 [facility] [id number] C-Reactive Protein, Quant 2.6 mg/L (Normal) Range: 0.0-4.9 :06 TSH (01132) Comments: PATIENT NOT FASTINGPERFORMED BY: [facility]6370 [facility] [id number] TSH 1.920 {uIU/mL} (Normal) Range: 0.450-4.500 :06 CBC with auto diff Comments: PATIENT NOT FASTINGPERFORMED BY: [facility]6370 [facility] [id number] Information: [id number] (41943) Immature Grans (Abs) 0.0 {x10E3/uL} (Normal) Range: [...] 3.77-5.28 WBC 7.9 {x10E3/uL} (Normal) Range: 3.4-10.8 2-Ncb-639502:06 METABOLIC PANEL, COMPREHENSIVE Comments: PATIENT NOT FASTINGPERFORMED BY: LabCoShore Memorial HospitalJzltxy6985 [facility] [id number] (24938) ALT (SGPT) 6 [iU]/L (Normal) Range: 0-32 [...] Glucose, Serum 111 mg/dL (Abnormal) Range: 65-99 4-Ssc-292335:09 URINE HANSA CULTURE (JEWELS Comments: PATIENT NOT FASTINGPERFORMED BY: LabCoShore Memorial HospitalWhlzlp8244 [facility] [id number] Information: SRC:[facility] [id number] COL COUNT) (83794) Result 1 CNSNSS (Abnormal) Comments: Coagulase negative [...] S Urine Final report Culture,Comprehens (Abnormal) ananth 7-Aej-311584:54 Urinalysis, Office (37321) UA - LEUKOCYTE ESTERASE Negative (Normal) UA - NITRITE Negative (Normal) URINE UROBILINGN JEWELS TIMED Normal mg/dL (Normal) UA - PROTEIN Negative mg/dL (Normal) UA - PH 6.5 (Normal) UA - BLOOD Negative (Normal) UA - SPECIFIC GRAVITY 1.015 (Normal) UA - KETONES Negative mg/dL (Normal) UA - BILIRUBIN Negative (Normal) UA - GLUCOSE Negative (Normal) 37-Gwb-344491:40 Urine Drug Screen (VISTA) Comments: Has pt arrived? YTest performed at:[facility] [address] [place] [address] THC NEGATIVE (Normal) PCP NEGATIVE [...] MUST BE ORDERED SEPARATELY. USE TESTMNEMONIC: UTCA 21-Wwb-774046:25 Acetaminophen (Tylenol) Level Comments: Test performed at:[facility] [address] [place] [address] ACETAMINOPHEN < 2.0 ug/mL (Abnormal) Range: 10.0-30.0 68-Gol-289592:25 Basic Metabolic Profile (BMP) Comments: Test performed at:[facility] [address] [place] [address] GAP 8 (Normal) Range: 5-15 [...] 126 mg/dLsuggests DIABETES MELLITUS per A.D.A. criteria. 48-Prj-806847:25 CBC W/Diff, Automated Comments: Test performed at:[facility] [address]kgvnc[address] [place], [place] [address] Absolute Lymph 0.55 {X10_3/ul} (Abnormal) Range: 0.83-4.51 [...] 4.2-5.4 WBC 11.3 K/mm3 (Abnormal) Range: 4.4-11.0 81-Brj-403431:25 Partial Thromboplast Time Comments: Test performed at:[facility] Zslhwephvg3727 [facility] [place] [address] PTT 31.9 s (Normal) Range: 24.1-36.2 21-Qgh-604511:25 Prothrombin Time w/INR Comments: Test performed at:[facility] [address]ozcrczvrx[address] [place] [address] INR 1.1 (Normal) PROTIME 14.0 s (Normal) Range: 11.7-14.9 :22 Basic Metabolic Profile (BMP) Comments: Test performed at:[facility] [address]yqxvyfuwk[address] [place] [address] GAP 8 (Normal) Range: 5-15 CO2 31.0 [...] No Diff Comments: Test performed at:[facility] [address] [place] [address] MPV 10.0 fL (Normal) Range: 6.2-12.0 [...] No Diff Comments: Test performed at:[facility] Amyecqefss3642 [facility] [place] [address] MPV 10.4 fL (Normal) Range: [...] Profile (BMP) Comments: Test performed at:[facility] Gvjzdkhgyk0855 [facility] [place] [address] GAP 8 (Normal) Range: 5-15 [...] 126 mg/dLsuggests DIABETES MELLITUS per A.D.A. criteria. 39-Fsk-57099:52 CBC-Complete Blood Cnt No Diff Comments: Test performed at:[facility] Gacrdesztq7556 [facility] [address]. [place], [place] [address] MPV 10.0 fL (Normal) Range: 6.2-12.0 PLT [...] 4.2-5.4 WBC 8.7 K/mm3 (Normal) Range: 4.4-11.0 48-Wih-655385:00 Bedside Glucose Comments: Test performed at:[facility] [address]ibj5771 [place] [address] BEDSIDE GLU 138 mg/dL (Abnormal) Range: 70-110 Comments: No Action RequiredMANAGEMENT OF PATIENT CARE PER NURSING PROTOCOL 71-Zhc-550021:12 Bedside Glucose Comments: Test performed at:[facility] Uartwevnbt2344 [place] [address] BEDSIDE GLU 108 mg/dL (Normal) Range: 70-110 Comments: No Action RequiredMANAGEMENT OF PATIENT CARE PER NURSING PROTOCOL 07-Kbt-54298:07 VITAMIN B-12 (CYANOCOBALAMIN) Comments: PATIENT WAS FASTINGPERFORMED BY: [facility] Rzbtmu2301 [facility] [id number] (28108) Vitamin B12 498 pg/mL (Normal) Range: 211-946 70-Gma-28057:07 MICROALBUMIN: CREATININE RATIO Comments: PATIENT WAS FASTINGPERFORMED BY: BitStashShore Memorial HospitalUtkjke8242 [facility] [id number] (10810) AND (39092) Microalb/Creat Ratio 24.7 {mg/g_creat} (Normal) Range: 0.0-30.0 Microalbumin, Urine 36.2 ug/mL (Abnormal) Range: 0.0-17.0 Creatinine, Urine 146.6 mg/dL (Normal) Range: 15.0-278.0 :07 CBC W/AUTO DIFF WBC Comments: PATIENT WAS FASTINGPERFORMED BY: BitStashLovelace Women's HospitalAugnuc2563 [facility] [id number] Information: [id number] (00138) Immature Grans (Abs) 0.0 {x10E3/uL} (Normal) Range: [...] 7.0 {x10E3/uL} (Normal) Range: 3.4-10.8 :07 TSH (14634) Comments: PATIENT WAS FASTINGPERFORMED BY: BitStashShore Memorial HospitalRoeyhu5624 [facility] [id number] TSH 4.510 {uIU/mL} (Abnormal) Range: 0.450-4.500 :07 LIPID PANEL (21269) Comments: PATIENT WAS FASTINGPERFORMED BY: LabSpottlyShore Memorial HospitalZlgxly3555 [facility] [id number] VLDL Cholesterol Peg VLDLCH mg/dL (Normal) Range: [...] PANEL, COMPREHENSIVE Comments: PATIENT WAS FASTINGPERFORMED BY: BitStashShore Memorial HospitalAkbyst5962 [facility] [id number] (34565) ALT (SGPT) 10 [iU]/L (Normal) Range: 0-32 [...] (Abnormal) Range: 65-99 :22 HgA1C , Office (31732) HgA1C , Office 6.9 % (Normal) Range: [...] Results called on 08/07/14152 by Zohreh THOMPSON ([facility]) [phone]. Comments: Copy of report sent to Infection Control Printer MS#[id number] 08/07/14 8466 [facility]. RESULTS PRINTED MS#-[id number] S. AUREUS S. aureus PositiveMRSA MRSA Negative 17-Iut-72335:34 VITAMIN B-12 (CYANOCOBALAMIN) Comments: PATIENT WAS FASTINGPERFORMED BY: [facility]ipoisUniversity [facility] Health6370 [facility] [id number] (97004) Vitamin B12 1631 pg/mL (Abnormal) Range: 211-946 :34 CBC W/AUTO DIFF WBC Comments: PATIENT WAS FASTINGPERFORMED BY: LabCoShore Memorial HospitalPdgyib7909 [facility] [id number] Information: [id number] (28032) Immature Grans (Abs) 0.0 {x10E3/uL} (Normal) Range: [...] 3.77-5.28 WBC 4.0 {x10E3/uL} (Normal) Range: 3.4-10.8 22-Sta-64214:34 METABOLIC PANEL, COMPREHENSIVE Comments: PATIENT WAS FASTINGPERFORMED BY: [facility] HospitalCoAlexander Ville 4717070 [facility] [id number] (09461) ALT (SGPT) 10 [iU]/L (Normal) Range: 0-32 [...] mg/dL (Abnormal) Range: 65-99 :34 LIPID PANEL (48580) Comments: PATIENT WAS FASTINGPERFORMED BY: LabCoShore Memorial HospitalLqosxg2154 [facility] [id number] LDL/HDL Ratio 3.3 {ratio_units} (Abnormal) Range: 0.0-3.2 [...] Examination Comments: PATIENT WAS FASTINGPERFORMED BY: [facility] Aqwjey7407 [facility] [id number] Bacteria None seen (Normal) Epithelial Cells (non renal) 0-10 {/hpf} (Normal) Range: 0 - 10 RBC None seen {/hpf} (Normal) Range: 0 - 2 WBC 0-5 {/hpf} (Normal) Range: 0 - 5 :12 TSH (35043) Comments: PATIENT WAS FASTINGPERFORMED BY: [facility] Yvntqy1912 [facility] [id number]; non-emergent till apt this week TSH 1.560 {uIU/mL} (Normal) Range: 0.450-4.500 :12 URINALYSIS, W/ MICRO (88299) Comments: PATIENT WAS FASTINGPERFORMED BY: LabHann[facility] Gqospn9935 [facility] [id number] Microscopic Examination See below: (Normal) Comments: Microscopic was indicated and was performed. Microscopic Examination MICRON (Normal) Comments: Microscopic follows if indicated. Nitrite, Urine Negative (Normal) Urobilinogen,Semi-Qn 0.2 mg/dL (Normal) Range: 0.0-1.9 Bilirubin Negative (Normal) Occult Blood Negative (Normal) Ketones Negative (Normal) Glucose Negative (Normal) Protein Trace (Normal) WBC Esterase Negative (Normal) Appearance Clear (Normal) Urine-Color Yellow (Normal) pH 8.0 (Abnormal) Range: 5.0-7.5 Specific [place] 1.014 (Normal) Range: 1.005-1.030 :12 Vitamin D Hydroxy (89010) Comments: PATIENT WAS FASTINGPERFORMED BY: LabHannibal [facility] Hospital Pascgz3672 [facility] [id number] Vitamin D, 25-Hydroxy 42.2 ng/mL (Normal) Range: 30.0-100.0 Comments: Vitamin D deficiency has been defined by the [place] ofMedicine and an Endocrine Society practice guideline as alevel of serum 25-OH vitamin D less than 20 ng/mL (1,2).The Endocrine Society went on to further define vitamin Dinsufficiency as a level between 21 and 29 ng/mL (2).1. IOM ([place] of Medicine). 2010. Dietary reference intakes for calcium and D. [place]: The National Academies Press.2. Delma MF, Mckenna ABDALLA, Dane MACKENZIE, et al. Evaluation, treatment, and prevention of vitamin D deficiency: an Endocrine Society clinical practice guideline. JCEM. 2010; 96(7):1911-30. :12 MICROALBUMIN: CREATININE RATIO Comments: PATIENT WAS FASTINGPERFORMED BY: [employer]6370 [facility] [id number] (58649) AND (11384) Microalb/Creat Ratio 4.7 {mg/g_creat} (Normal) Range: 0.0-30.0 Creatinine, Urine 49.4 mg/dL (Normal) Range: 15.0-278.0 Microalbumin, Urine 2.3 ug/mL (Normal) Range: 0.0-17.0 :12 METABOLIC PANEL, Comments: PATIENT WAS FASTINGPERFORMED BY: Predictify6370 [facility] [id number] Information: [id number] COMPREHENSIVE (64890) ALT (SGPT) 12 [iU]/L (Normal) Range: 0-32 [...] mg/dL (Abnormal) Range: 65-99 :12 LIPID PANEL (54866) Comments: PATIENT WAS FASTINGPERFORMED BY: CutefundNovant Health [facility] [id number] LDL/HDL Ratio 2.7 {ratio_units} (Normal) Range: 0.0-3.2 [...] B-12 (CYANOCOBALAMIN) Comments: PATIENT WAS FASTINGPERFORMED BY: CutefundNovant Health [facility] [id number] (93962) Vitamin B12 287 pg/mL (Normal) Range: 211-946 :34 HgA1C , Office (08322) HgA1C , Office 6.3 % (Normal) Range: 4.6 - 7.1 :55 Creatine Kinase Total (43993) Comments: PATIENT NOT FASTINGPERFORMED BY: [employer] [facility] [id number] Creatine Kinase,Total,Serum 105 U/L (Normal) Range: 24-173 :55 TSH (51482) Comments: PATIENT NOT FASTINGPERFORMED BY: [employer] [facility] [id number] TSH 1.590 {uIU/mL} (Normal) Range: 0.450-4.500 :55 METABOLIC PANEL, Comments: PATIENT NOT FASTINGPERFORMED BY: CLARITA [facility] Ckfflf8208 Vivek Brown [place] [id number] Information: [id number] COMPREHENSIVE (52210) ALT (SGPT) 13 [iU]/L (Normal) Range: 0-32 [...] (Abnormal) Range: 65-99 :33 HgA1C , Office (26601) HgA1C , Office 6.7 % (Normal) Range: 4.6 - 7.1 :46 MICROALBUMIN: CREATININE RATIO Comments: PATIENT WAS FASTINGPERFORMED BY: BitStash Ptmajl8317 [facility] [place] [id number] (07467) AND (52640) Microalb/Creat Ratio 20.0 {mg/g_creat} (Normal) Range: 0.0-30.0 Microalbumin, Urine 21.7 ug/mL (Abnormal) Range: 0.0-17.0 Creatinine, Urine 108.5 mg/dL (Normal) Range: 15.0-278.0 :46 TSH (29119) Comments: PATIENT WAS FASTINGPERFORMED BY: [employer] Pswuyr3193 [facility] [place] [id number] TSH 2.670 {uIU/mL} (Normal) Range: 0.450-4.500 :46 Vitamin D Hydroxy (17138) Comments: PATIENT WAS FASTINGPERFORMED BY: [employer] Zklcpb3858 [facility] [place] [id number] Vitamin D, 25-Hydroxy 42.9 ng/mL (Normal) Range: 30.0-100.0 Comments: Vitamin D deficiency has been defined by the [place] of[place]icine and an Endocrine Society practice guideline as alevel of serum 25-OH vitamin D less than 20 ng/mL (1,2).The Endocrine Society went on to further define vitamin Dinsufficiency as a level between 21 and 29 ng/mL (2).1. IOM ([place] of Medicine). 2010. Dietary reference intakes for calcium and D. [place]: The National Academies Press.2. Delma MF, Mckenna NC, Loree-Werner MACKENZIE, et al. Evaluation, treatment, and prevention of vitamin D deficiency: an Endocrine Society clinical practice guideline. JCEM. 2010; 96(7):1911-30. :46 CBC, PLATELETS & AUT DIFF Comments: PATIENT WAS FASTINGPERFORMED BY: [facility]oisH[facility] Hospital Gkwtoy9702 [facility] [id number] Information: [id number] (67500) Immature Grans (Abs) 0.0 {x10E3/uL} (Normal) Range: [...] 3.77-5.28 WBC 8.7 {x10E3/uL} (Normal) Range: 3.4-10.8 09-Bmw-828803:46 VITAMIN B-12 (CYANOCOBALAMIN) Comments: PATIENT WAS FASTINGPERFORMED BY: LabCoShore Memorial HospitalUcswhq9302 [facility] [id number] (36023) Vitamin B12 382 pg/mL (Normal) Range: 211-946 69-Tgo-897655:46 METABOLIC PANEL, COMPREHENSIVE Comments: PATIENT WAS FASTINGPERFORMED BY: LabCoShore Memorial HospitalRnajdl0617 [facility] [id number] (05573) ALT (SGPT) 15 [iU]/L (Normal) Range: 0-32 [...] Glucose, Serum 130 mg/dL (Abnormal) Range: 65-99 59-Tef-905350:46 LIPID PANEL (36466) Comments: PATIENT WAS FASTINGPERFORMED BY: LabCoShore Memorial HospitalCzivgi1122 [facility] [id number] LDL/HDL Ratio 3.4 {ratio_units} (Abnormal) Range: 0.0-3.2 LDL Cholesterol Calc 130 mg/dL (Abnormal) Range: 0-99 VLDL Cholesterol Peg 57 mg/dL (Abnormal) Range: 5-40 HDL Cholesterol 38 mg/dL (Abnormal) Comments: According to ATP-III Guidelines, HDL-C >59 mg/dL is considered anegative risk factor for CHD. Triglycerides 287 mg/dL (Abnormal) Range: 0-149 Cholesterol, Total 225 mg/dL (Abnormal) Range: 100-199 :44 HgA1C , Office (79775) HgA1C , Office 6.6 % (Normal) Range: 4.6 - 7.1 :43 CBC, Platelets & Auto Diff Comments: PATIENT NOT FASTINGPERFORMED BY: LabCoShore Memorial HospitalAcsobo1122 [facility] [id number] Information: [id number] (50581) Immature Grans (Abs) 0.0 {x10E3/uL} (Normal) Range: [...] (Normal) Range: 3.4-10.8 :43 Metabolic Panel, Basic (92352) Comments: PATIENT NOT FASTINGPERFORMED BY: [facility]6370 [facility] [id number] Calcium, Serum 9.4 mg/dL (Normal) Range: 8.6-10.2 [...] mg/dL (Abnormal) Range: 65-99 :10 HANSA CULTURE-OTHER (69313) Comments: PATIENT NOT FASTINGPERFORMED BY: [facility]6370 [facility] [id number] Information: SRC:THRT [id number] Result 1 RFMNR (Normal) Comments: Mixed growth consisting of multiple gram negative rods and routinerespiratory vicente. Upper Respiratory Culture Final report (Normal) :56 Rapid Strep Test, Office (65418) Rapid Strep Test, Office Negative (Normal) :03 Blood Glucose , Office (18719) Blood Glucose , Office 150 (Normal) :14 PPD (14505) Comments: Lot: [id number]: 12/17Amt: 0.1mlRoute: intradermalSite: R FAGiven by: ANGEL Merlos SKIN TEST INTRADERMAL TB negative (Normal) :39 HgA1C , Office (77004) HgA1C , Office 6.4 % (Normal) Range: 4.6 - 7.1 :31 Microscopic Examination Comments: PATIENT WAS FASTINGPERFORMED BY: [employer] Zqawba7605 [facility] [id number] Bacteria Few (Normal) Mucus Threads Present (Normal) Epithelial Cells (non renal) 0-10 {/hpf} (Normal) Range: 0 - 10 RBC 0-3 {/hpf} (Normal) Range: 0 - 3 WBC 0-5 {/hpf} (Normal) Range: 0 - 5 :31 MICROALBUMIN: CREATININE RATIO Comments: PATIENT WAS FASTINGPERFORMED BY: [employer] Dliszb4954 [facility] [id number] (89155) AND (26885) Microalb/Creat Ratio 12.6 {mg/g_creat} (Normal) Range: 0.0-30.0 Microalbumin, Urine 9.2 ug/mL (Normal) Range: 0.0-17.0 Creatinine, Urine 73.3 mg/dL (Normal) Range: 15.0-278.0 :31 CBC WITH MANUAL DIFF Comments: PATIENT WAS FASTINGPERFORMED BY: [employer] Sviqdv4031 [facility] [id number] Information: [id number] (67907) Immature Grans (Abs) 0.0 {x10E3/uL} (Normal) Range: [...] PANEL, COMPREHENSIVE Comments: PATIENT WAS FASTINGPERFORMED BY: LabCoShore Memorial HospitalBuuijp8335 [facility] [id number] (66516) ALT (SGPT) 14 [iU]/L (Normal) Range: 0-32 [...] (Abnormal) Range: 65-99 :31 URINALYSIS, W/ MICRO (67100) Comments: PATIENT WAS FASTINGPERFORMED BY: [facility] [id number] Microscopic Examination See below: (Normal) Microscopic Examination MICRON (Normal) Comments: Microscopic follows if indicated. Nitrite, Urine Negative (Normal) Urobilinogen,Semi-Qn 0.2 mg/dL (Normal) Range: 0.0-1.9 Bilirubin Negative (Normal) Occult Blood Negative (Normal) Ketones Negative (Normal) Glucose Negative (Normal) Protein Negative (Normal) Appearance Clear (Normal) Urine-Color Yellow (Normal) WBC Esterase Negative (Normal) pH 8.5 (Abnormal) Range: 5.0-7.5 Specific [place] 1.018 (Normal) Range: 1.005-1.030 :31 LIPID PANEL (88034) Comments: PATIENT WAS FASTINGPERFORMED BY: Güdpod70 [facility] InstituteC3 Online MarketingNovant Health New [facility]over [facility] [id number] LDL Cholesterol Calc 75 mg/dL (Normal) Range: [...] B-12 (CYANOCOBALAMIN) Comments: PATIENT WAS FASTINGPERFORMED BY: [employer] ([employer]upon[employer]) Doyle [facility] [id number] (18954) Vitamin B12 299 pg/mL (Normal) Range: 211-946 :31 Vitamin D Hydroxy (42927) Comments: PATIENT WAS FASTINGPERFORMED BY: LabCo Yeyefu0344 [facility] [id number] Vitamin D, 25-Hydroxy 31.2 ng/mL (Normal) Range: 30.0-100.0 Comments: Vitamin D deficiency has been defined by the [place] of[place]icine and an Endocrine Society practice guideline as alevel of serum 25-OH vitamin D less than 20 ng/mL (1,2).The Endocrine Society went on to further define vitamin Dinsufficiency as a level between 21 and 29 ng/mL (2).1. IOM ([place] of Medicine). 2010. Dietary reference intakes for calcium and D. [place]: The National Academies Press.2. Delma MF, Mckenna ABDALLA, Dane MACKENZIE, et al. Evaluation, treatment, and prevention of vitamin D deficiency: an Endocrine Society clinical practice guideline. JCEM. 2010; 96(7):1911-30. :31 TSH (55098) Comments: PATIENT WAS FASTINGPERFORMED BY: [facility] Nmmlpq6229 [facility] [id number] TSH 4.190 {uIU/mL} (Normal) Range: 0.450-4.500 :15 HgA1C , Office (82991) HgA1C , Office 6.4 % (Normal) Range: 4.6 - 7.1 :15 Blood Glucose , Office (90986) Blood Glucose , Office 141 (Normal) :19 [...] M.D.October 02, 2012 at 9:24 :48 PM [id number] Signed RB/RB If you are the referring physician and would like to consult with theradiologist who provided this interpretation, please contact Mame Mario at [phone]. If this radiologist is unavailable, you will bedirected to another radiologist to assist. If you are a patient with a question regarding this report, pleasecontactyour referring physician hari benítez. Professional Interpretation Provided By: [employer], Phone , These documents contain legally protected [...] on 10/02/122128 Sign by: Keith Crocker DO 40-Emt-65152:55 Vitamin D Hydroxy (96405) Comments: PATIENT NOT FASTINGPERFORMED BY: LabCoShore Memorial HospitalRycviw4483 [facility] [id number] Information: [id number] Vitamin D, 25-Hydroxy 39.5 ng/mL (Normal) Range: 30.0-100.0 Comments: Vitamin D deficiency has been defined by the [place] of[place]icine and an Endocrine Society practice guideline as alevel of serum 25-OH vitamin D less than 20 ng/mL (1,2).The Endocrine Society went on to further define vitamin Dinsufficiency as a level between 21 and 29 ng/mL (2).1. IOM ([place] of Medicine). 2010. Dietary reference intakes for [...] Valenzuela M.D.September 17, 2012 at 9:02:07 AM [id number] Signed GP/GP If you are the referring physician and would like to consult with theradiologist damaso davenport provided this interpretation, please contact Mame Mccoy at [phone]. If this radiologist is unavailable, youwill be directed to another radiologist to assist. If you are a patient wi th a question regarding this report, pleasecontactyour referring physician directly. Professional Interpretation Provided By: [employer], Phone , These documents contain l egally [...] Range: 211-946 7:31 (Normal) Comments: Performed at: [address] [id number] Director: Demarco Mccormack PhD, Phone: [phone] 17-Sep-2012 BID 0.10 mg/dL Range: 0.00-0.30 7:31 (Normal) 35-Yli-03328:31 CBCMD ANC 3.6 3/uL (Normal) Range: 2.0-7.7 [...] A.D.A. criteria. :31 [facility] See Note {CFU/mL} (Normal) Comments: COLONY COUNT [...] Simpson M.D.September 13, 2012 at 2:32:10 PM [id number] Signed DL/DL If you are the referring physician and would like to consult with theradiologist who provided this interpretation, please co ntact Mame Lancaster at [phone]. If this radiologist is unavailable, youwillbe directed to another radiologist to assist. If you are a patient with a question regarding this report, pleasecont actyour referring physician directly. Professional Interpretation Provided By: [employer], Phone , These documents contain legally protected [...] 09/13/12 1437 Sign by: Theo Simpson MD 22-Qjw-79274:36 THYROID Radiology Report See Note (Normal) Comments: [...] Valenzuela M.D.September 13 13 at 2:58:06 PM [id number] Signed GP/GP If you are the referring physician and would like to consult with theradiologist who provided this interpretation, please contact Brown chaidez M.D. at [phone]. If this radiologist is unavailable, youwill be directed to another radiologist to assist. If you are a patient with a question regarding this report, pleasecontactyour refer ring physician directly. Professional Interpretation Provided By: [employer], Phone , These documents contain legally protected [...] on 09/13/12 1503 Sign by: Nicolas ARAGON,Florian 30-Xtn-89753:28 CRE Comments: CALL 8665 WITH RESULTSRESULTS CALLED TO DEBBIE 09/13/12 0801 AURA DIAZ.REPORT READ BACK BY SAME . GFR 105 mL/min (Normal) GFRAA 127 mL/min (Normal) CREAT 0.6 mg/dL (Normal) Range: 0.6-1.0 :23 URINE HANSA CULTURE-JEWELS COL Comments: PATIENT NOT FASTINGPERFORMED BY: LabCoShore Memorial HospitalEztycd3210 [facility] [id number] Information: SRC:UR [id number] COUNT (62862) Result 1 NG36 (Normal) Comments: No growth in 36 - 48 hours. Urine Culture,Comprehensive Final report (Normal) :39 Urinalysis, Office (07014) UA - BILIRUBIN Negative (Normal) UA - BLOOD Non Hemolyzed Trace (Normal) UA - GLUCOSE Negative (Normal) UA - KETONES Negative mg/dL (Normal) UA - LEUKOCYTE ESTERASE Negative (Normal) UA - NITRITE Negative (Normal) UA - PH 6.5 (Normal) UA - PROTEIN Negative mg/dL (Normal) UA - SPECIFIC GRAVITY 1.015 (Normal) URINE UROBILINGN JEWELS TIMED Normal mg/dL (Normal) :35 HgA1C , Office (20111) HgA1C , Office 6.3 % (Normal) Range: 4.6 - 7.1 46-Gwr-63631:35 Blood Glucose , Office (37899) Blood Glucose , Office 143 (Normal) :54 Comp. Metabolic Panel (14) Comments: PATIENT WAS FASTINGPERFORMED BY: CLARITA BitStashShore Memorial HospitalGayqjp2828 [facility] [id number] Information: 07/08@830AM 07/09@830AM ALT (SGPT) 11 [iU]/L [...] Creatinine Clearance Comments: PATIENT WAS FASTINGPERFORMED BY: [facility]oisUniversity [facility] Health6370 [facility] [id number] Creatinine Clearance 70 mL/min (Abnormal) Range: 88-128 Comments: The above range is based on 1.73 square meter average body surfacearea. Creatinine, Ur 24hr 777.0 {mg/24_hr} (Abnormal) Range: 800.0-1800.0 Creatinine, Urine 37.9 mg/dL (Normal) Range: 15.0-278.0 :54 Lipid Panel With LDL/HDL Comments: PATIENT WAS FASTINGPERFORMED BY: Bit[employer] Mevpsw1973 Doyle [facility]Critical [facility] hospital [id number] Ratio LDL/HDL Ratio 2.6 {ratio_units} (Normal) Range: [...] Qn, 24-Hr Comments: PATIENT WAS FASTINGPERFORMED BY: [employer] Rbpemp1653 Doyle [facility]espokeCritical access hospital [id number] Urine Prot,24hr calculated <30.8 {mg/24_hr} Range: 30.0-150.0 (Normal) Protein,Total,Urine <1.5 mg/dL (Normal) Range: 0.0-15.0 Comments: Verified by repeat analysis TSH 2.550 {uIU/mL} Comments: PATIENT WAS FASTINGPERFORMED BY: [employer] Weeaev0659 [facility] [id number] :54 (Normal) Range: 0.450-4.500 Vitamin B12 271 pg/mL (Normal) Comments: PATIENT WAS FASTINGPERFORMED BY: [employer] Rfgvjz5771 [facility] [id number] :54 Range: 211-946 :08 CBC WITH MANUAL DIFF Comments: PATIENT NOT FASTINGPERFORMED BY: Bit[employer] Cwyjcy6656 Doyle AltrujaNovant Health New Hanover [facility] Medical Center [id number] Information: [id number] (84580) Immature Grans (Abs) 0.0 {x10E3/uL} (Normal) Range: [...] 3.77-5.28 WBC 4.0 {x10E3/uL} (Normal) Range: 4.0-10.5 7-Pqp-843730:01 FECAL OCCULT- Tubes sent home (89160) FECAL OCCULT HGB ASSAY, QUAL, 1-3 SIMULTANEOU [...] Valenzuela M.D.April 30, 2012 at 8:16:04 AM [id number] Signed GP/GP If you are the referring physician and would like to consult with theradiologist who prov ided this interpretation, please contact Mame Mccoy at [phone]. If this radiologist is unavailable, youwill be directed to another radiologist to assist. If you are a patient with a qu estion regarding this report, pleasecontactyour referring physician directly. Professional Interpretation Provided By: [employer], Phone , These documents contain legally protected [...] by: Nicolas ARAGON,Florian :44 HgA1C , Office (74281) HgA1C , Office 6.3 % (Normal) Range: 4.6 - 7.1 :44 Blood Glucose , Office (53646) Blood Glucose , Office 150 (Normal) Comments: has part of a cinnamon bun for breakfast :52 Microscopic Examination Comments: PATIENT WAS FASTINGPERFORMED BY: LabSpottlyShore Memorial HospitalSjomix7554 [facility] [id number] Bacteria None seen (Normal) Mucus Threads Present (Normal) Epithelial Cells (non renal) 0-10 {/hpf} (Normal) Range: 0 - 10 RBC 0-3 {/hpf} (Normal) Range: 0 - 3 WBC 0-5 {/hpf} (Normal) Range: 0 - 5 :52 CBC WITH MANUAL DIFF Comments: PATIENT WAS FASTINGPERFORMED BY: LabpeerTransfer6370 [facility] InstituteC3 Online MarketingNovant Health New [facility] [id number] Information: [id number] (48070) Immature Grans (Abs) 0.0 {x10E3/uL} (Normal) Range: [...] (Normal) Range: 4.0-10.5 :52 URINALYSIS, W/ MICRO (01024) Comments: PATIENT WAS FASTINGPERFORMED BY: [employer] [facility] [id number] Microscopic Examination See below: (Normal) Nitrite, Urine Negative (Normal) Urobilinogen,Semi-Qn 1.0 mg/dL (Normal) Range: 0.0-1.9 Bilirubin Negative (Normal) Occult Blood Negative (Normal) Ketones Negative (Normal) Glucose Negative (Normal) Protein 2+ (Abnormal) WBC Esterase Negative (Normal) Appearance Clear (Normal) Urine-Color Yellow (Normal) pH 7.0 (Normal) Range: 5.0-7.5 Specific [place] 1.029 (Normal) Range: 1.005-1.030 :52 TSH (77130) Comments: PATIENT WAS FASTINGPERFORMED BY: SOMA AnalyticsShore Memorial HospitalLesdlp8569 [facility] [id number] TSH 2.060 {uIU/mL} (Normal) Range: 0.450-4.500 :52 METABOLIC PANEL, COMPREHENSIVE Comments: PATIENT WAS FASTINGPERFORMED BY: SOMA AnalyticsShore Memorial HospitalQssxfc4249 [facility] [id number] (86938) ALT (SGPT) 16 [iU]/L (Normal) Range: 0-40 [...] mg/dL (Abnormal) Range: 65-99 :52 LIPID PANEL (11882) Comments: PATIENT WAS FASTINGPERFORMED BY: CutefundNovant Health New Hanover [facility] [id number] LDL/HDL Ratio 2.2 {ratio_units} (Normal) Range: 0.0-3.2 [...] CREATININE RATIO Comments: PATIENT WAS FASTINGPERFORMED BY: Güdpod70 AddMyBestNovant Health New Hanover Regional Medical Center [id number] (26475) AND (34884) Microalb/Creat Ratio 822.1 {mg/g_creat} (Abnormal) Range: 0.0-30.0 Microalbumin, Urine 844.3 ug/mL (Abnormal) Range: 0.0-17.0 Creatinine, Urine 102.7 mg/dL (Normal) Range: 15.0-278.0 57-Jqf-464063:18 HgA1C , Office (61165) HgA1C , Office 6.3 % (Normal) Range: 4.6 - 7.1 77-Gfc-584697:16 CHEST WITH CONTRAST Radiology Report See Note [...] radiologist regarding this report, please call our [id number] line @ Dictated on 12/14/11 1033 by Nicolas ARAGON,[facility] on 12/14/11 1438 by ITS IMPORTSign by Florian Valenzuela MD on 12/14/11 1439 Sign by: Florian Valenzuela MD 05-Dec-20119:19 CBC WITH MANUAL DIFF Comments: PATIENT WAS FASTINGPERFORMED BY: LabCoShore Memorial HospitalJcwssu5834 [facility] [id number] Information: [id number] (45988) Immature Grans (Abs) 0.0 {x10E3/uL} (Normal) Range: [...] PANEL, COMPREHENSIVE Comments: PATIENT WAS FASTINGPERFORMED BY: Predict[employer]6370 [facility] [id number] (43471) ALT (SGPT) 14 [iU]/L (Normal) Range: 0-40 [...] mg/dL (Abnormal) Range: 65-99 :19 LIPID PANEL (78944) Comments: PATIENT WAS FASTINGPERFORMED BY: Fullscreen70 [facility] [id number]; appt 12-21-11 LDL/HDL Ratio 3.0 {ratio_units} Range: [...] {units} (Normal) Comments: PATIENT NOT FASTINGPERFORMED BY: ZettaCorelin6370 [facility] [id number] BY: BitStash[address] [id number] 10:24 Range: 0-19 Comments: Negative <20 Weak positive 20 - 39 Moderate positive 40 - 59 Strong positive >59 0-Caz-006195:24 EBV Panel (96515) Comments: PATIENT NOT FASTINGPERFORMED BY: ZettaCorelin6370 [facility] [id number] BY: Cadee [address] [id number] Interpretation: SPRCS (Normal) Comments: EBV Interpretation Chart [...] <0.9 Equivocal 0.9 - 1.0 Positive >1.0 4-Kdd-183437:24 SED RATE ERYTHROCYTE Comments: PATIENT NOT FASTINGPERFORMED BY: [place] 1449170 [facility] [id number] BY: [address] [id number] (71498) Sedimentation Rate-Westergren 6 mm/h (Normal) Range: 0-40 6-Sec-516213:24 C-REACTIVE PROTEIN (28665) Comments: PATIENT NOT FASTINGPERFORMED BY: [place] 1449170 [facility] [id number] BY: [address] [id number] C-Reactive Protein, Quant 2.1 mg/L (Normal) Range: 0.0-4.9 3-Wek-176841:24 TSH (74907) Comments: PATIENT NOT FASTINGPERFORMED BY: [address] [id number] BY: [address] [id number] TSH 1.610 {uIU/mL} (Normal) Range: 0.450-4.500 2-Xrn-174476:24 RHEUMATOID FACTOR-QUANT Comments: PATIENT NOT FASTINGPERFORMED BY: [place] 1449170 [facility] [id number] BY: [address] [id number] (67451) RA Latex Turbid. 8.4 {IU/mL} (Normal) Range: 0.0-13.9 9-Mgt-888012:24 [place] (ANTINUCLEAR ANTIBODY) Comments: PATIENT NOT FASTINGPERFORMED BY: [place] 1449170 [facility] [id number] BY: LabCoAlexa Ville 731697 [facility] [id number] (64354) [place] Direct Negative (Normal) 3-Ilp-204588:24 CBC WITH MANUAL DIFF Comments: PATIENT NOT FASTINGPERFORMED BY: [facility] Mbyijh3676 [facility] [id number] BY: LabCo[address] [id number] Inf ormation: [id number] (61959) Immature Grans (Abs) 0.0 {x10E3/uL} (Normal) Range: [...] 3.80-5.10 WBC 4.6 {x10E3/uL} (Normal) Range: 4.0-10.5 9-Cox-346436:24 METABOLIC PANEL, Comments: PATIENT NOT FASTINGPERFORMED BY: CB [facility] Lkayrk8759 Vivek NunnEcu Health Roanoke-Chow[facility] Hospitalhadley [place] [id number] BY: BN [facility] Gnjzspstiv3416 [facility] [id number]; appt 12-21-11 COMPREHENSIVE (28277) ALT (SGPT) 13 [iU]/L (Normal) Range: 0-40 [...] Glucose, Serum 118 mg/dL (Abnormal) Range: 65-99 3-Jjr-873098:51 HANSA CULTURE-OTHER (94076) Comments: PATIENT NOT FASTINGPERFORMED BY: CLARITA LabCoShore Memorial HospitalUsbaww7927 Vivek [facility] [id number] Information: SRC:AIDAN [id number] Result 1 RRF (Normal) Comments: Routine respiratory vicente Upper Respiratory Culture Final report (Normal) 07-Nov-20119:19 Rapid Strep Test, Office (79508) Rapid Strep Test, Office Negative (Normal) 44-Uuh-070935:16 HgA1C , Office (44513) HgA1C , Office 6.1 % (Normal) Range: 4.6 - 7.1 76-Rlz-767044:16 Blood Glucose , Office (66043) Blood Glucose , Office 141 (Normal) 94-Gzi-315889:10 ABDOMEN/PELVIS WITH CONTRAST Radiology Report See Note [...] 1410 Si gn by: Florian Valenzuela MD 45-Cus-321089:39 CHEST WITH CONTRAST Radiology Report See Note [...] noted, distal end at the level of E2fvwlm. Normal osseous structures. There is limited visualization of the liver, spleen w ithout ademonstratedabnormality. IMPRESSION:No pulmonary embolism. No aortic dissection. Nonspecific two to 3-mmsubtle nodular density at right upper lobe, image 145 probably representatypically atelec tatic change. Dictated on 04/21/11 1104 by Leonard Odell MDranscribed on 04/22/11 1013 by ITS IMPORTSign by Jordan Odell MD on 04/22/11 1014 Sign by: Jordan Odell MD 14-Saw-852741:29 MICROALBUMIN: CREATININE RATIO Comments: PATIENT WAS FASTINGPERFORMED BY: [facility] [id number] (50897) AND (45431) Microalb/Creat Ratio 11.8 {mg/g_creat} (Normal) Range: 0.0-30.0 Microalbumin, Urine 7.3 ug/mL (Normal) Range: 0.0-17.0 Creatinine, Urine 61.9 mg/dL (Normal) Range: 15.0-278.0 :29 LIPID PANEL (47263) Comments: PATIENT WAS FASTINGPERFORMED BY: [employer]6370 [facility] [id number]; appt 07/25/11 VLDL Cholesterol Peg VLDLCH mg/dL [...] MANUAL DIFF Comments: PATIENT WAS FASTINGPERFORMED BY: [employer]6370 [facility] [id number] Information: [id number] (21064) Immature Grans (Abs) 0.0 {x10E3/uL} (Normal) Range: [...] 3.80-5.10 WBC 5.7 {x10E3/uL} (Normal) Range: 4.0-10.5 83-Gbn-659206:29 METABOLIC PANEL, COMPREHENSIVE Comments: PATIENT WAS FASTINGPERFORMED BY: LabCoShore Memorial HospitalNaqrdd4151 [facility] [id number] (03339) ALT (SGPT) 12 [iU]/L (Normal) Range: 0-40 [...] Glucose, Serum 120 mg/dL (Abnormal) Range: 65-99 29-Onb-86236:46 THYROID Radiology Report See Note (Normal) Comments: [...] on 03/28/11 1149 Sign by: Jose R ARAGON,[facility] :10 CHEST, PA AND LATERAL [...] 1019 Sign by: ___ Florian Valenzuela MD 39-Caq-94789:47 SOFT TISSUE NECK WITH CONTRAST Radiology Report [...] malformation. Normal bilateral parotid glands. Normal bilateral soils technician spaces.Normal bilateral parapharyngeal spaces. Normal bilateral [...] 01/24/11 1017 Sign by: Florian Valenzuela MD 05-Lcy-47074:15 CBC WITH MANUAL DIFF Comments: PATIENT WAS FASTINGPERFORMED BY: [facility] [id number] Information: [id number] (38326) Immature Grans (Abs) 0.0 {x10E3/uL} (Normal) Range: [...] 3.80-5.10 WBC 7.0 {x10E3/uL} (Normal) Range: 4.0-10.5 83-Lqx-67901:15 METABOLIC PANEL, COMPREHENSIVE Comments: PATIENT WAS FASTINGPERFORMED BY: LabCoShore Memorial HospitalSozxwi0775 [facility] [id number] (75760) ALT (SGPT) 10 [iU]/L (Normal) Range: 0-40 [...] mg/dL (Abnormal) Range: 65-99 :15 LIPID PANEL (39641) Comments: PATIENT WAS FASTINGPERFORMED BY: [employer]6370 [facility] [id number]; has f/u 04/20/11 LDL/HDL Ratio 2.5 {ratio_units} (Normal) Range: 0.0-3.2 LDL Cholesterol Calc 94 mg/dL (Normal) Range: 0-99 VLDL Cholesterol Peg 46 mg/dL (Abnormal) Range: 5-40 HDL Cholesterol 37 mg/dL (Abnormal) Comments: According to ATP-III Guidelines, HDL-C >59 mg/dL is considered anegative risk factor for CHD. Triglycerides 230 mg/dL (Abnormal) Range: 0-149 Cholesterol, Total 177 mg/dL (Normal) Range: 100-199 :15 HgA1C , Office (44772) Comments: PATIENT WAS FASTINGPERFORMED BY: [employer] Hiyrrq8885 [facility] [id number] Glycohemoglobin (GHb), Total 7.7 % (Normal) Comments: Diabetic Adult <9.0 Healthy Adult 3.9 - 7.3 (DCCT/NGSP) Current ADA guide lines recommend a treatment goal of <7.0% HgbA1c for diabetic patients, which corresponds to a <9.0% Glycohemoglobin result with this method. :50 Blood Glucose , Office (50689) Blood Glucose , Office 160 (Normal) :48 [...] = 500 mg/dL :33 HgA1C , Office (99410) HgA1C , Office 6.5 % (Normal) Range: 4.6 - 7.1 :33 Blood Glucose , Office (91055) Blood Glucose , Office 154 (Normal) 49-Bjp-290150:11 Influenza A, H1N1, RT PCR Comments: PERFORMED BY: [employer] [id number] BY: [employer] [id number] Information: SRC:NL Subtype Novel H1N1 by Negative (Normal) PCR Type Influenza A by Negative (Normal) PCR Viral FLUABN (Normal) Comments: PERFORMED BY: [employer] [id number] BY: [employer] [id number] Culture,Rapid,Influenz Comments: Negative:No Influenza A or B detected. a :04 Urinalysis, Office (44459) UA - BILIRUBIN Negative (Normal) UA - BLOOD Negative (Normal) UA - GLUCOSE Negative (Normal) UA - KETONES Negative mg/dL (Normal) UA - LEUKOCYTE ESTERASE Negative (Normal) UA - NITRITE Negative (Normal) UA - PH 6.0 (Normal) UA - PROTEIN Negative mg/dL (Normal) UA - SPECIFIC GRAVITY 1.025 (Normal) URINE UROBILINGN JEWELS TIMED Normal mg/dL (Normal) :59 Vitamin D Hydroxy (93888) Comments: PATIENT WAS FASTINGPERFORMED BY: [employer] [id number] Vitamin D, 25-Hydroxy 32.0 ng/mL (Normal) Range: 32.0-100.0 Comments: Recent studies consider the lower limit of 32.0 ng/mL to be athreshold for optimal health.Jose MAYA. J Nutr. 2004;135(2):317-22. 4:59 METABOLIC PANEL, Comments: PATIENT WAS FASTINGPERFORMED BY: LabCoShore Memorial HospitalFpmajb0723 [facility] [id number] Information: [id number] COMPREHENSIVE (51881) ALT (SGPT) 9 [iU]/L (Normal) Range: 0-40 [...] mg/dL (Abnormal) Range: 65-99 :59 LIPID PANEL (38329) Comments: PATIENT WAS FASTINGPERFORMED BY: [employer]6370 [facility] [id number] LDL Cholesterol Calc 87 mg/dL (Normal) Range: [...] MANUAL DIFF Comments: PATIENT WAS FASTINGPERFORMED BY: LabpeerTransfer6370 [facility] [id number] Information: ADD [id number] AND DRAW FEE [id number] (18175) Immature Grans (Abs) 0.0 {x10E3/uL} (Normal) Range: [...] CREATININE RATIO Comments: PATIENT WAS FASTINGPERFORMED BY: SOMA AnalyticsShore Memorial HospitalUcdekb7623 [facility] [id number] (13671) AND (88092) Creatinine, Urine 87.5 mg/dL (Normal) Range: 15.0-278.0 Microalb/Creat Ratio 4.5 {mg/g_creat} (Normal) Range: 0.0-30.0 Microalbumin, Urine 3.9 ug/mL (Normal) Range: 0.0-17.0 :57 METABOLIC PANEL, COMPREHENSIVE Comments: PATIENT WAS FASTINGPERFORMED BY: BitStashShore Memorial HospitalNzhxtb1654 [facility] [id number] (73391) ALT (SGPT) 12 [iU]/L (Normal) Range: 0-40 [...] mg/dL (Abnormal) Range: 65-99 :57 LIPID PANEL (84286) Comments: PATIENT WAS FASTINGPERFORMED BY: [employer] Ssjymz0036 [facility] [id number] LDL Cholesterol Calc 138 mg/dL (Abnormal) Range: 0-99 LDL/HDL Ratio 2.9 {ratio_units} (Normal) Range: 0.0-3.2 HDL Cholesterol 47 mg/dL (Normal) Comments: According to ATP-III Guidelines, HDL-C >59 mg/dL is considered anegative risk factor for CHD. VLDL Cholesterol Peg 29 mg/dL (Normal) Range: 5-40 Cholesterol, Total 214 mg/dL (Abnormal) Range: 100-199 Triglycerides 147 mg/dL (Normal) Range: 0-149 :05 HgA1C , Office (22018) HgA1C , Office 6.5 % (Normal) Range: 4.6 - 7.1 :05 Blood Glucose , Office (86697) Blood Glucose , Office 140 (Normal) :35 MICROALBUMIN: CREATININE RATIO Comments: PATIENT WAS FASTINGPERFORMED BY: LabCoSh[facility] Memorial HospitalStngpp7963 [facility] [id number] (40897) AND (80934) Creatinine, Urine 94.9 mg/dL (Normal) Range: 15.0-278.0 Microalb/Creat Ratio 10.7 {mg/g_creat} (Normal) Range: 0.0-30.0 Microalbumin, Urine 10.2 ug/mL (Normal) Range: 0.0-17.0 :35 CBC WITH MANUAL DIFF Comments: PATIENT WAS FASTINGPERFORMED BY: EquipoisCoShore Memorial HospitalRugusw9617 [facility] [id number] Information: [id number] (48392) Baso (Absolute) 0.0 {x10E3/uL} (Normal) Range: 0.0-0.2 [...] PANEL, COMPREHENSIVE Comments: PATIENT WAS FASTINGPERFORMED BY: LabCoShore Memorial HospitalRcixhf3349 [facility] [id number] (39417) ALT (SGPT) 12 [iU]/L (Normal) Range: 0-40 [...] mg/dL (Abnormal) Range: 65-99 :35 LIPID PANEL (18199) Comments: PATIENT WAS FASTINGPERFORMED BY: [facility] Wnstze5881 [place] [id number] LDL Cholesterol Calc 103 mg/dL (Abnormal) Range: 0-99 LDL/HDL Ratio 3.0 {ratio_units} (Normal) Range: 0.0-3.2 HDL Cholesterol 34 mg/dL (Abnormal) Comments: According to ATP-III Guidelines, HDL-C >59 mg/dL is considered anegative risk factor for CHD. VLDL Cholesterol Peg 38 mg/dL (Normal) Range: 5-40 Cholesterol, Total 175 mg/dL (Normal) Range: 100-199 Triglycerides 190 mg/dL (Abnormal) Range: 0-149 :31 HgA1C , Office (78054) HgA1C , Office 6.2 % (Normal) Range: 4.6 - 7.1 :31 Blood Glucose , Office (97965) Blood Glucose , Office 113 (Normal) :03 BILAT SCRN DIGITAL & CAD Radiology Report See Note (Normal) Comments: Exam Number: [id number] MAMMOGRAPHY - BILATERAL SCREENING INDICATION:Routine annual screening [...] of attaching a ResultCode to this exam.ADDENDUM: [id number] HPBI/MDS Reported By: BRIAN JIMENEZ M.D. :02 DEXA BONE DENSITY STUDY () Radiology Report See Note (Normal) Comments: Exam Number: [id number] CLINICAL:Assess bone density EXAMINATION:DUAL ENERGY X-RAY ABSORPTIOMETRY / DEXA. TECHNIQUE:Bone Density Measurements (BMD) of left hip and left forearm wereobtained using a Fite[employer] dual energy scanner. COMPARISON:A report from 2001 [...] NIH Osteoporosis and Related Bone Diseases http://www.osteo.org2. [employer] ational Society for Clinical Densitometryhttp://www.iscd.org3. National Osteoporosis Foundation http://www.nof.org Reported By: NELLY LINCOLN M.D. :11 HgA1C , Office (16547) HgA1C , Office 6.2 % (Normal) Range: 4.6 - 7.1 :11 Blood Glucose , Office (74781) Blood Glucose , Office 186 (Normal) :25 TSH (24460) Comments: PATIENT WAS FASTINGPERFORMED BY: [facility]Co Ktgafp9909 [facility] [id number] TSH 2.340 {uIU/mL} (Normal) Range: 0.450-4.500 :25 METABOLIC PANEL, COMPREHENSIVE Comments: PATIENT WAS FASTINGPERFORMED BY: LabCo Rhxzdt6979 [facility] [id number] (15186) ALT (SGPT) 10 [iU]/L (Normal) Range: 0-40 [...] MANUAL DIFF Comments: PATIENT WAS FASTINGPERFORMED BY: [facility]6370 [facility] [id number] Information: ADD DRAW FEE [id number] AND J0 1362 (96736) Baso (Absolute) 0.0 {x10E3/uL} (Normal) Range: 0.0-0.2 [...] {x10E3/uL} (Normal) Range: 4.0-10.5 :25 LIPID PANEL (01029) Comments: PATIENT WAS FASTINGPERFORMED BY: [facility]6370 [facility] [id number] LDL/HDL Ratio 2.6 {ratio_units} (Normal) Range: 0.0-3.2 Cholesterol, Total 183 mg/dL (Normal) Range: 100-199 HDL Cholesterol 34 mg/dL (Abnormal) Comments: According to ATP-III Guidelines, HDL-C >59 mg/dL is considered anegative risk factor for CHD. LDL Cholesterol Calc 90 mg/dL (Normal) Range: 0-99 Triglycerides 295 mg/dL (Abnormal) Range: 0-149 VLDL Cholesterol Peg 59 mg/dL (Abnormal) Range: 5-40 :02 HgA1C , Office (39036) HgA1C , Office 6.2 % (Normal) Range: 4.6 - 7.1 :02 Blood Glucose , Office (47110) Blood Glucose , Office 152 (Normal) :02 HEPATIC FUNCTION PANEL Comments: PATIENT WAS FASTINGPERFORMED BY: BitStashShore Memorial HospitalBoivtp9092 [facility] [id number] (06187) Alkaline Phosphatase, S 63 [iU]/L (Normal) Range: 25-165 ALT (SGPT) 13 [iU]/L (Normal) Range: 0-40 AST (SGOT) 14 [iU]/L (Normal) Range: 0-40 Bilirubin, Direct 0.10 mg/dL (Normal) Range: 0.00-0.40 Bilirubin, Total 0.4 mg/dL (Normal) Range: 0.1-1.2 Albumin, Serum 4.6 g/dL (Normal) Range: 3.6-4.8 Protein, Total, Serum 7.0 g/dL (Normal) Range: 6.0-8.5 :02 LIPID PANEL (23221) Comments: PATIENT WAS FASTINGPERFORMED BY: [facility]6370 [facility] [id number] LDL Cholesterol Calc 114 mg/dL (Abnormal) Range: 0-99 LDL/HDL Ratio 3.6 {ratio_units} (Abnormal) Range: 0.0-3.2 HDL Cholesterol 32 mg/dL (Abnormal) Comments: According to ATP-III Guidelines, HDL-C >59 mg/dL is considered anegative risk factor for CHD. Triglycerides 319 mg/dL (Abnormal) Range: 0-149 VLDL Cholesterol Peg 64 mg/dL (Abnormal) Range: 5-40 Cholesterol, Total 210 mg/dL (Abnormal) Range: 100-199 :45 HgA1C , Office (55108) HgA1C , Office 6.2 % (Normal) Range: 4.6 - 7.1 :45 Blood Glucose , Office (74764) Blood Glucose , Office 193 (Normal) :34 MICROALBUMIN: CREATININE RATIO Comments: PATIENT WAS FASTINGPERFORMED BY: CLARITA [employer]6370 [facility] [id number] (67737) AND (20874) Creatinine, Urine 126.3 mg/dL (Normal) Range: 15.0-278.0 Microalb/Creat Ratio 7.6 {mg/g_creat} (Normal) Range: 0.0-30.0 Microalbumin, Urine 9.6 ug/mL (Normal) Range: 0.0-17.0 :34 METABOLIC PANEL, COMPREHENSIVE Comments: PATIENT WAS FASTINGClinical Information: ADD [id number] CC:3302PERFORMED BY: [employer]6370 [facility] [id number] (78667) A/G Ratio 1.7 (Normal) Range: 1.1-2.5 Albumin, [...] FUNCTION PANEL Comments: PATIENT WAS FASTINGPERFORMED BY: [employer] LabpeerTransfer6370 [facility] [id number] (03435) Bilirubin, Direct 0.08 mg/dL (Normal) Range: 0.00-0.40 :34 LIPID PANEL (69427) Comments: PATIENT WAS FASTINGPERFORMED BY: [employer] LabSpottlyShore Memorial HospitalLlfhmb2018 [facility] [id number] Cholesterol, Total 186 mg/dL (Normal) Range: 100-199 HDL Cholesterol 38 mg/dL (Abnormal) Comments: According to ATP-III Guidelines, HDL-C >59 mg/dL is considered anegative risk factor for CHD. LDL Cholesterol Calc 102 mg/dL (Abnormal) Range: 0-99 LDL/HDL Ratio 2.7 {ratio_units} (Normal) Range: 0.0-3.2 Triglycerides 232 mg/dL (Abnormal) Range: 0-149 VLDL Cholesterol Peg 46 mg/dL (Abnormal) Range: 5-40 63-Xtg-570498:36 HgA1C , Office (91363) HgA1C , Office 6.3 % (Normal) Range: 4.6 - 7.1 26-Ikj-190165:36 Blood Glucose , Office (76651) Blood Glucose , Office 129 (Normal) 1-Aqi-869941:12 BILAT SCRN DIGITAL & CAD Radiology Report See Note (Normal) Comments: Exam Number: [id number] MAMMOGRAM, BILATERAL SCREENING DIGITAL AND CAD HISTORY: [...] 1992 (MQSA). The mammograms werealso examined w [employer] computer-aided detection software ([employer], [employer], [employer].). Reported By: BRIAN JIMENEZ M.D. 87-Baj-746458:57 HgA1C , Office (19918) HgA1C , Office 6.3 % (Normal) Range: 4.6 - 7.1 54-Ypx-262719:57 Blood Glucose , Office (94482) Blood Glucose , Office 111 (Normal) :40 [...] for patient's is the eGFRmultiplied by 1.212. [facility] Laboratory uses the abbreviated Modification of Diet [...] Disease W/O Kidney Disease>/= 90 Stage One Ctoloz81 - 89 Stage Two Suspect Decreased GFR30 [...] (Normal) Range: 5-40 :30 HgA1C , Office (91905) HgA1C , Office 6.2 % (Normal) Range: 4.6 - 7.1 :30 Blood Glucose , Office (78150) Blood Glucose , Office 167 (Normal) :33 [...] (Normal) Range: 211-911 :51 HgA1C , Office (53365) HgA1C , Office 5.9 % (Normal) Range: 4.6 - 7.1 01-Wli-633854:51 Blood Glucose , Office (27139) Blood Glucose , Office 113 (Normal) :49 [...] >240 mg/dL High Risk :01 Urinalysis, Office (51279) UA - BILIRUBIN Negative (Normal) UA - [...] Comments: GLU,2HPPG 75gm GLUC PPG GLUP from 0603:B17294Z. 56-Ump-787955:44 CHEST, PA AND LATERAL Radiology Report See Note (Normal) Comments: Exam Number: [id number] PA AND LATERAL CHEST HISTORY Being done for chest pain. FINDINGSCardiac configuration is upper limits of normal to mildly enlarged.There is mild elevation, left hemid iaphragm. No acute infiltrate,effusion, or pneumothorax is identified. There is moderate spurformation noted in the lower dorsal spine. IMPRESSION1. A number of chronic changes.2. No acute infiltrate. Reported By: CADE MERCER M.D. 48-Fpz-736010:20 URINE HANSA CULTURE-IDENTIFICATN Comments: PATIENT NOT FASTINGClinical Information: ADD [id number] PERFORMED BY: LabCoShore Memorial HospitalLhdxnt7932 [facility] [id number] (58570) Antimicrobial MARY (Normal) Comments: S = Susceptible; [...] mL (Normal) Urine Final report Culture,Comprehensive (Normal) 40-Skj-88794:00 CBC With Differential/Platelet Comments: PATIENT NOT FASTINGPERFORMED BY: [facility] Oemktj2878 [facility] [id number] Baso (Absolute) 0.1 {x10E3/uL} (Normal) Range: 0.0-0.2 [...] 11.7-15.0 WBC 6.0 {x10E3/uL} (Normal) Range: 4.0-10.5 05-Ahy-30023:00 Comp. Metabolic Panel (14) Comments: PATIENT NOT FASTINGPERFORMED BY: [facility] Irfvug9973 [facility] [id number] A/G Ratio 1.7 (Normal) Range: 1.1-2.5 Albumin, [...] Serum 116 mg/dL (Abnormal) Range: 65-99 If -Pakistani >60 mL/min (Normal) Range: 60-128 Comments: Note: [...] (Normal) Range: 0.34-4.82 :33 HgA1C , Office (36782) HgA1C , Office 5.2 % (Normal) Range: 4.6 - 7.1 :33 Blood Glucose , Office (97648) Blood Glucose , Office 172 (Normal) :08 FEMUR,2 VIEWS Radiology Report See Note (Normal) Comments: Exam Number: [id number] AP AND LATERAL LEFT TIBIA/FIBULA. HISTORYBeing done [...] Report See Note (Normal) Comments: Exam Number: [id number] AP AND LATERAL LEFT TIBIA/FIBULA. HISTORYBeing done [...] (Normal) Range: 0.34-4.82 :53 HgA1C , Office (69096) Comments: done-[facility] HgA1C , Office 5.3 % (Normal) Range: 4.6 - 7.1 :53 Blood Glucose , Office (59201) Comments: done-[facility] Blood Glucose , Office 94 (Normal) :55 [...] Range: 6.4-8.2 :18 Blood Glucose , Office (19920) Blood Glucose , Office 5.6 (Normal) :18 HgA1C , Office (47927) HgA1C , Office 142 % (Abnormal) Range: [...] Range: 6.4-8.2 :05 COMPLETE UA Comments: COMMENTS: [facility] [...] :00 AMIE 25 U/L (Normal) Comments: COMMENTS: [facility] DR Webster*: NOT APPLICABLE Range: 25-115 :00 CBCD Comments: COMMENTS: [facility] DR Webster*: NOT APPLICABLE BASO% [...] 11.6-14.6 WBC 5.3 K/mm3 (Normal) Range: 4.4-11.0 72-Bxb-997678:00 COMP METABOLIC Comments: COMMENTS: BED 7 DR [...] T PROT 8.0 g/dL (Normal) Range: 6.4-8.2 73-Uos-633331:00 D BILI 0.14 mg/dL (Normal) Comments: COMMENTS: [...] mg/dL VLDL 50 mg/dL (Abnormal) Range: 5-40 0-Tul-922268:02 URINALYSIS (81887) URINALYSIS Comments: uNABLE TO PUT RESULTS IN CORRECTLY- SSKIXYZ-ENEAPZJDASCZ-YLPEHHNXQQJ-NEGS.G.-1.559WYXFS-JZBNCICYPZ-5.5TUTKSNR-FXPTATRZSZH-4.5FJGXKXSZ-VNZEFKQTJULBCJRDEM-URKYE (Normal) :09 HgA1C , Office (41522) HgA1C , Office 5.4 % (Normal) Range: 4.6 - 7.1 :09 Blood Glucose , Office (51322) Blood Glucose , Office 161 (Normal) Plan [...] II, controlled, with no complications CAD in [place] artery : Reviewed Medical Staffing Coordinator Letter Indication: CAD in [place] artery Mixed hyperlipidemia : Cholesterol mgmt Indication: [...] B12 shots montly Indication: Macrocytosis CAD in [place] artery : Reviewed Medical Staffing Coordinator Letter Indication: CAD in [place] artery CAD in [place] artery : Continue Current Prescription(s) Indication: CAD in [place] artery Diabetes mellitus type 2, uncontrolled, without [...] Pulmonary hypertension, moderate to severe : Reviewed Medical Staffing Coordinator Letter Indication: Pulmonary hypertension, moderate to severe [...] S/P laminectomy with spinal fusion : Reviewed Medical Staffing Coordinator Letter Indication: S/P laminectomy with spinal fusion Macrocytosis without anemia : Reviewed Lab Indication: Macrocytosis without anemia Diabetes mellitus type II, controlled, with no complications : Reviewed Diagnostic Tests Indication: Diabetes mellitus type II, controlled, with no complications S/P laminectomy with spinal fusion : Reviewed Medical Staffing Coordinator Letter Indication: S/P laminectomy with spinal fusion [...] pneumonia) CAP (community acquired pneumonia) : Reviewed Medical Staffing Coordinator Letter Indication: CAP (community acquired pneumonia) Sinusitis, bacterial : Eprescribed prescriptions (G8553) Indication: Sinusitis, bacterial Pulmonary hypertension, moderate to severe : Reviewed Diagnostic Tests Indication: Pulmonary hypertension, moderate to severe Nonsmoker : Eprescribed prescriptions (G8553) Indication: Nonsmoker Bronchitis : Reviewed Diagnostic Tests Indication: Bronchitis Bronchitis : Reviewed Medical Staffing Coordinator Letter Indication: Bronchitis Bronchitis : *Antibiotic Usage [...] : FOLLOW UP IN 3 DAYS with [facility] Indication: EDEMA, NOS Benign paroxysmal positional vertigo : Reviewed Medical Staffing Coordinator Letter Indication: Benign paroxysmal positional vertigo Acute [...] MONTHS Indication: Mixed hyperlipidemia Planned Observations TSH (62358)Indication: Diabetes mellitus type 2, uncontrolled, without complications On: 42 Request URINALYSIS, W/ MICRO (48533)Indication: Diabetes mellitus type 2, uncontrolled, without complications On: :42 Request MICROALBUMIN: CREATININE RATIO (94004) AND (81492)Indication: Diabetes mellitus type 2, uncontrolled, without complications On: :42 Request METABOLIC PANEL, COMPREHENSIVE (33181)Indication: Hypertensive heart disease without heart failure On: 6-Nal-858666:42 Request LIPID PANEL (54425)Indication: Mixed hyperlipidemia On: :42 Request CBC W/AUTO DIFF WBC (79447)Indication: Hypertensive heart disease without heart failure On: 5-Pvx-396606:42 Request LIPID PANEL (50571)Indication: Diabetes mellitus type 2, uncontrolled, without complications On: 9-Six-519663:25 Request CBC WITH MANUAL DIFF (04102)Indication: Elevated platelet count On: :11 Request LIPASE (20189)Indication: Flu-like symptoms On: 3-Fua-974128:53 Request Comments: stat POTASSIUM SERUM (10801)Indication: Hypokalemia On: :40 Request MAGNESIUM (78872)Indication: Hypomagnesemia On: 20-Prg-501590:40 Request Renal function Panel (93725)Indication: Hypokalemia On: 96-Xey-600799:48 Request POTASSIUM SERUM (58372)Indication: Hypokalemia (Renamed from Decreased potassium in the blood) On: 03-Nov-20169:06 Request POTASSIUM SERUM (78694)Indication: Hypokalemia (Renamed from Decreased potassium in the blood) On: 68-Gsj-088377:55 Request POTASSIUM SERUM (03055)Indication: Hypokalemia On: 5-Qhw-870720:22 Request MAGNESIUM (04251)Indication: Hypokalemia On: 4-Use-588154:21 Request URINE HANSA CULTURE-JEWELS COL COUNT (08314)Indication: UTI (urinary tract infection), bacterial On: :54 Request MAGNESIUM (56581)Indication: Abdominal pain On: 40-Mgy-561476:45 Request Comments: do in 3 weeks CALCIFEDIOL (73209)Indication: Vitamin D deficiency On: 50-Wmd-021511:14 Request LIPID PANEL (51714)Indication: Mixed hyperlipidemia On: 51-Pri-674747:13 Request VITAMIN B12 AND FOLATES (56199)Indication: B12 deficiency anemia On: 96-Hcx-948340:13 Request TSH (THYROID STIMULATING HORMONE) (14797)Indication: Thyroid Nodule On: :13 Request METABOLIC PANEL, COMPREHENSIVE (01172)Indication: Mixed hyperlipidemia On: :13 Request CBC WITH MANUAL DIFF (94156)Indication: Hypertensive heart disease without heart failure On: 28-Yvr-622358:13 Request MICROALBUMIN: CREATININE RATIO (51530) AND (84476)Indication: Hypertensive heart disease without heart failure On: 62-Nct-846406:13 Request MYOGLOBIN (85878)Indication: Sweating abnormality On: 49-Cxb-671509:11 Request CPK MB FRACTION (53018)Indication: Sweating abnormality On: 79-Nvz-013597:11 Request ASSAY, TROPONIN, QUANTITATIVE (aka Troponin I) (44363)Indication: Sweating abnormality On: 68-Llu-131692:11 Request METABOLIC PANEL, BASIC (26316)Indication: Hypokalemia (Renamed from Decreased potassium in the blood) On: 94-Pbs-894441:16 Request PARATHORMONE (77301)Indication: Hypocalcemia On: 11-Iwx-545461:23 Request Magnesium (25672)Indication: Hypokalemia (Renamed from Decreased potassium in the blood) On: 97-Lvg-221359:22 Request CALCIUM, IONIZED (00875)Indication: Hypocalcemia On: 23-Gsu-636537:21 Request VITAMIN B12 AND FOLATES (88487)Indication: Macrocytosis without anemia On: 35-Zqu-073945:39 Request SMEAR+INTERP FLUOR STAIN (59186)Indication: Macrocytosis without anemia On: 55-Kdy-616448:37 Request MICROALBUMIN: CREATININE RATIO (83294) AND (67803)Indication: Hypertensive heart disease without heart failure On: 06-Tme-477553:16 Request CBC W/AUTO DIFF WBC (79521)Indication: Hypertensive heart disease without heart failure On: 72-Pix-780708:16 Request METABOLIC PANEL, COMPREHENSIVE (52121)Indication: Hypertensive heart disease without heart failure On: 40-Bfk-689700:16 Request LIPID PANEL (99747)Indication: Mixed hyperlipidemia On: 56-Jmr-436203:16 Request Vitamin D Hydroxy (52978)Indication: Vitamin D deficiency On: 45-Xsx-322265:15 Request VITAMIN B-12 (CYANOCOBALAMIN) (63921)Indication: B12 deficiency anemia On: 93-Zcx-156486:15 Request METABOLIC PANEL, COMPREHENSIVE ([id number])Indication: Fatigue On: :07 Request LIPID PANEL (38246)Indication: Mixed hyperlipidemia On: :07 Request VITAMIN B-12 (CYANOCOBALAMIN) (35242)Indication: B12 deficiency anemia On: :07 Request CBC (AUTO) ([id number])Indication: B12 deficiency anemia On: :07 Request Vitamin D Hydroxy (52285)Indication: Vitamin D deficiency On: :06 Request HgA1C , Office ([id number])Indication: Diabetes mellitus type II, controlled, with no complications On: :55 Request CBC, PLATELETS & MANUAL DIFF ([id number])Indication: Hypokalemia (Renamed from Decreased potassium in the blood) On: :08 Request Comments: recheck before 11-07-14 MICROALBUMIN: CREATININE RATIO (52822) AND (03709)Indication: Proteinuria On: :49 Request VITAMIN B-12 (CYANOCOBALAMIN) (16716)Indication: B12 deficiency anemia On: :56 Request Vitamin D Hydroxy (92333)Indication: Vitamin D deficiency On: :56 Request CBC WITH MANUAL DIFF ([id number])Indication: B12 deficiency anemia On: :55 Request METABOLIC PANEL, COMPREHENSIVE (78523)Indication: Hypertensive heart disease without heart failure On: :55 Request LIPID PANEL ([id number])Indication: Mixed hyperlipidemia On: :55 Request LIPID PANEL (39891)Indication: Mixed hyperlipidemia On: :31 Request TSH ([id number])Indication: Thyroid Nodule On: :31 Request MICROALBUMIN: CREATININE RATIO (96818) AND ([id number])Indication: Diabetes mellitus type II, controlled, with no complications On: :31 Request METABOLIC PANEL, COMPREHENSIVE (99282)Indication: Diabetes mellitus type II, controlled, with no complications On: :31 Request URINALYSIS, W/ MICRO ([id number])Indication: Proteinuria On: :30 Request Vitamin D Hydroxy (09493)Indication: Vitamin D deficiency On: :30 Request CBC, PLATELETS & AUT DIFF (98051)Indication: B12 deficiency anemia On: :29 Request VITAMIN B-12 (CYANOCOBALAMIN) (78161)Indication: B12 deficiency anemia On: :29 Request HgA1C , Office (85505)Indication: Diabetes mellitus type II, controlled, with no complications On: :03 Request TSH ([id number])Indication: Thyroid Nodule On: :39 Request LIPID PANEL ([id number])Indication: Mixed hyperlipidemia On: :38 Request CBC WITH MANUAL DIFF (23413)Indication: Diabetes mellitus type II, controlled, with no complications On: :38 Request METABOLIC PANEL, COMPREHENSIVE ([id number])Indication: Diabetes mellitus type II, controlled, with no complications On: :38 Request Vitamin D Hydroxy (44753)Indication: Vitamin D deficiency On: :22 Request CBC, PLATELETS & AUT DIFF ([id number])Indication: B12 deficiency anemia On: 10-Kgu-44719:22 Request VITAMIN B-12 (CYANOCOBALAMIN) (96904)Indication: B12 deficiency anemia On: :22 Request CBC WITH MANUAL DIFF ([id number])Indication: Diabetes mellitus type II, controlled, with no complications On: :12 Request METABOLIC PANEL, COMPREHENSIVE (69597)Indication: Diabetes mellitus type II, controlled, with no complications On: 07-Ary-42160:12 Request HEPATIC FUNCTION PANEL ([id number])Indication: Mixed hyperlipidemia On: 54-Did-62539:10 Request LIPID PANEL ([id number])Indication: Mixed hyperlipidemia On: 08-Yps-87641:10 Request VITAMIN B-12 (CYANOCOBALAMIN) (47837)Indication: B12 deficiency anemia On: 73-Sys-06708:02 Request TSH ([id number])Indication: Dysthymic disorder On: 56-Nxx-153728:17 Request CREATININE CLEARANCE ([id number])Indication: Proteinuria On: 66-Jtb-330460:15 Request 24 hour urine for Protein ([id number])Indication: Proteinuria On: 88-Acw-229160:15 Request VITAMIN B-12 (CYANOCOBALAMIN) ([id number])Indication: B12 deficiency anemia On: 89-Ctz-534184:15 Request CCP ANTIBODY ([id number])Indication: Pain in unspecified joint On: 07-Nov-20119:47 Request LIPID PANEL ([id number])Indication: Mixed hyperlipidemia On: 51-Jwh-762197:45 Request OVA & PARASITE DIR SMEAR ([id number])Indication: Diarrhea On: :52 Request LEUKOCYTE COUNT, FECAL ([id number])Indication: Diarrhea On: :52 Request Clostridium difficile Toxin A+B, EIA ([id number])Indication: Diarrhea On: :52 Request HANSA CULTURE-STOOL (28020)Indication: Diarrhea On: :52 Request CBC WITH MANUAL DIFF ([id number])Indication: Hypertensive heart disease without heart failure On: 23-Vgb-434118:11 Request METABOLIC PANEL, COMPREHENSIVE ([id number])Indication: Hypertensive heart disease without heart failure On: 39-Qux-954933:11 Request LIPID PANEL ([id number])Indication: Mixed hyperlipidemia On: 92-Mvb-185603:11 Request Influenza B Ag ([id number])Indication: Myalgia and myositis On: 86-Zqq-37245:06 Request Influenza A Ag (91312)Indication: Myalgia and myositis On: 67-Zqv-37616:06 Request METABOLIC PANEL, COMPREHENSIVE (51507)Indication: Uncomplicated herpes simplex On: 96-Kyn-578733:13 Request MICROALBUMIN: CREATININE RATIO ([id number]) AND (55107)Indication: Abnormal glucose tolerance test On: :32 Request METABOLIC PANEL, COMPREHENSIVE (83720)Indication: Hypertensive heart disease without heart failure On: :32 Request HEPATIC FUNCTION PANEL ([id number])Indication: Mixed hyperlipidemia On: :31 Request LIPID PANEL (93025)Indication: Mixed hyperlipidemia On: :31 Request TSH ([id number])Indication: Abnormal glucose tolerance test On: 02-Hgx-299068:19 Request LIPID PANEL ([id number])Indication: Mixed hyperlipidemia On: 33-Tjz-800273:15 Request HEPATIC FUNCTION PANEL ([id number])Indication: Mixed hyperlipidemia On: 81-Sgq-307497:15 Request METABOLIC PANEL, COMPREHENSIVE (03882)Indication: Hypertensive heart disease without heart failure On: :56 Request HEPATIC FUNCTION PANEL (61298)Indication: Mixed hyperlipidemia On: :56 Request LIPID PANEL (62645)Indication: Mixed hyperlipidemia On: :56 Request MICROALBUMIN: CREATININE RATIO (75466) AND ([id number])Indication: Abnormal glucose tolerance test On: :30 Request CBC WITH MANUAL DIFF ([id number])Indication: Abnormal glucose tolerance test On: :30 Request VITAMIN B-12 (CYANOCOBALAMIN) ([id number])Indication: Tinnitus, unspecified laterality On: :24 Request METABOLIC PANEL, COMPREHENSIVE (08631)Indication: Hypertensive heart disease without heart failure On: :24 Request LIPID PANEL (84993)Indication: Mixed hyperlipidemia On: :24 Request URINALYSIS W/O MICRO ([id number])Indication: Hypertensive heart disease without heart failure On: :12 Request TSH ([id number])Indication: Hypertensive heart disease without heart failure On: 37-Xgt-868398:12 Request CBC WITH MANUAL DIFF ([id number])Indication: Hypertensive heart disease without heart failure On: 51-Zwm-237622:12 Request METABOLIC PANEL, COMPREHENSIVE ([id number])Indication: Hypertensive heart disease without heart failure On: :12 Request LIPID PANEL ([id number])Indication: Mixed hyperlipidemia On: 12-Zwa-701288:12 Request CBC with manual diff ([id number])Indication: Pre-operative examination On: :30 Request Metabolic Panel, Comprehensive ([id number])Indication: Pre-operative examination On: 04-Xrk-405280:30 Request Urinalysis, Office (65853)Indication: Pre-operative examination On: 68-Tkg-373819:29 Request Lipid Panel ([id number])Indication: Mixed hyperlipidemia On: :52 Request Comments: in three months (approximately) TSH (79959)Indication: Hypertensive heart disease without heart failure On: :52 Request MICROALBUMIN URINE QUANT ([id number])Indication: Hypertensive heart disease without heart failure On: :52 Request METABOLIC PANEL, COMPREHENSIVE (21323)Indication: Hypertensive heart disease without heart failure On: :52 Request CBC WITH MANUAL DIFF ([id number])Indication: Hypertensive heart disease without heart failure On: :52 Request HEPATIC FUNCTION PANEL ([id number])Indication: Mixed hyperlipidemia On: :52 Request LIPID PANEL (68535)Indication: Mixed hyperlipidemia On: :52 Request HEPATIC FUNCTION PANEL ([id number])Indication: Mixed hyperlipidemia On: :54 Request LIPID PANEL (60334)Indication: Mixed hyperlipidemia On: :54 Request TSH ([id number])Indication: pruritis On: :37 Request METABOLIC PANEL, COMPREHENSIVE (21391)Indication: pruritis On: :37 Request CBC WITH MANUAL DIFF ([id number])Indication: pruritis On: :37 Request LIPID PANEL (52727)Indication: Mixed hyperlipidemia On: :18 Request HEPATIC FUNCTION PANEL ([id number])Indication: Mixed hyperlipidemia On: :18 Request HEPATIC FUNCTION PANEL ([id number])Indication: Mixed hyperlipidemia On: :14 Request LIPID PANEL ([id number])Indication: Mixed hyperlipidemia On: 0-Fvh-782771:14 Request Comments: 2mos Planned Encounters Medical; 3 Month FU - On: 24-Aug-2018 7:00 [facility] Margarita Drake DO, DO, Kathleen Planned Procedures ELECTROCARDIOGRAM, COMPLETE (ECG) On: 23-May-2018 Intent ([id number])By: Margarita Drake DO Comments: sinus favio no acute chg Margarita GALARZA B 12 Injection, 1000 mcg (J3420)By: On: 23-May-2018 Intent Margarita Drake DO, DO, Comments: b12 1,000mcg/ml 1ml given L deltoid lot#[id number] exp: dino Margarita B 12 Injection, 1000 mcg (J3420)By: On: 26-Mar-2018 Intent Marlyn Roberts LPN Comments: [id number] dltdIMas SUPERINTENDENT CAR CONSTRUCTION B 12 Injection, 1000 mcg (J3420)By: On: 19-Feb-2018 Intent Margarita Drake DO, DO, Comments: vitamin b12 1000mcg injectionlot: [id number]: 06/2019L DELT IMpt tolerated well Margarita B 12 Injection, 1000 mcg (J3420)By: On: 07-Dec-2017 Intent Noelle GALARZA Margarita Drake , Comments: 1 ml given lt arm lot [id number] exp 01/20 Margarita B 12 Injection, 1000 mcg (J3420)By: On: 10-Nov-2017 Intent Margarita Drake DO, DO, Margarita CHEST XRAY, PA & LATERAL ([id number])By: On: 26-Sep-2017 Intent Allyn Manley Aerosol Treatment (65071)By: Khanh On: 13-Sep-2017 Intent Ann Marie MCDANIEL Aerosol Treatment ([id number])By: Vineet, On: 07-Sep-2017 Intent Allyn Comments: Lungs clear after aerosol treatment. B 12 Injection, 1000 mcg (J3420)By: On: 15-Aug-2017 Intent Margarita Drake DO Noelle DO, Comments: vitamin b12 1000mcg injectionlot: [id number]: 10/2018L DELT IMpt tolerated wellAD [employer]PERINTENDENT [employer]CTION Margarita INFUSION, NORMAL SALINE SOLUTION , On: 10-Aug-2017 Intent 1000 CC (Special Coverage Instructions Apply. See MCM: 2048) (J7030)By: Libby Mai DO Toradol Injection, 30 mg (J1885)By: On: 09-Aug-2017 Intent Libby Mai DO Comments: toradol 30mg IV push -per dr. mailot: [id number]: 11/2017IV push in 23g in R ACpt tolerated well. AD SUPERINTENDENT [employer] INFUSION, NORMAL SALINE SOLUTION , On: 09-Aug-2017 Intent 1000 CC (Special Coverage Comments: 23g inserted to R AC per first attemptpt tolerated [id number] infusing Instructions Apply. See MCM: 2048) (J7030)By: Stefanie Ghosh XR RIB AND CHEST LEFT ([id number])By: Sergei On: 09-Aug-2017 Libby Zavala DO Comments: stat call wet read fall with left anterior inferior rib pain/sob B 12 Injection, 1000 mcg (J3420)By: On: 03-Aug-2017 Intent Visit, Nurse Comments: given - see flowsheet Dose-prefilled syringeRIGHT DLTD, IMgiven by:CIARA JarrellNVIS signed B 12 Injection, 1000 mcg (J3420)By: On: 01-Aug-2017 Intent Margarita Drake DO, DO, Comments: vitamin b12 1000mcg injectionlot: [id number]: 10/2018L DELT IMpt tolerated wellAD [employer]PERINT[employer]ENT [employer]CTION Margarita B 12 Injection, 1000 mcg (J3420)By: On: 26-Jul-2017 Intent Margarita Drake DO, DO, Comments: vitamin b12 1000mcg injectionlot: [id number]: 10/2018L DELT IMpt tolerated wellAD [employer]PERINTENDENT [employer] Margarita INTENSIVE BEHAVIORAL THERAPY TO On: 25-Jul-2017 Intent REDUCE CARDIOVASCULAR DISEASE RISK, INDIVIDUAL, [id number], ANNUAL, 15 MINUTES ([id number])By: Margarita Drake DO, DO, Kathleen SCREENING DIGITAL TOMOSYNTHESIS OF On: 25-Jul-2017 Intent BREAST ([id number])By: Margarita Drake DO, DO Margarita B 12 Injection, 1000 mcg (J3420)By: On: 25-Jul-2017 Intent Margarita Drake DO, DO, Comments: vitamin b12 1000mcg injectionlot: [id number]: 10/2018L DELT IMpt tolerated wellAD SUPERINT[employer]ENT [employer]CTION Margarita Rocephon Injection, 1 Gm ([id number])By: On: 13-Mar-2017 Intent Libby Mai DO Radiology - Finger(s) - RightBy: Sergei On: 13-Mar-2017 Libby Zavala DO Comments: second finger rule out osteo Aerosol Treatment (76056)By: Noelle On: 23-Sep-2016 Margarita Zavala DO, DO, Kathleen Comments: albulterol .83%more a/e but more noise- inspir and expir wheeze and junky Bone Density StudyBy: Davian Mccray MD On: 12-Nov-2015 Intent MAMMOGRAM, SCREENING, BOTH BREAST On: 12-Nov-2015 Intent ([id number])By: Davian Mccray MD CT - Chest (Without Contrast)By: Shazia On: 05-Nov-2015 Intent Davian ARAGON Comments: low dose DEXA SCAN AXIAL SKELETON (60877)By: On: 29-Oct-2015 Intent Shazia ARAGON, Davian Ultrasound - ThyroidBy: Shazia ARAGON, On: 29-Oct-2015 Intent Davian BILATERAL MAMMOGRAMS (84210)By: Shazia On: 29-Oct-2015 Intent Davian ARAGON B [...] MAMMOGRAM, SCREENING, BOTH BREAST On: 07-Nov-2014 Intent ([id number])By: Libby Mai DO A B 12 Injection, 1000 mcg (J3420)By: On: 07-Nov-2014 Intent Sergei GALARZA Libby A Comments: lot: [id number]: 06/19Dose: 1,000 mcgSite: l dltdLocation; IMby: B 12 Injection, 1000 mcg (J3420)By: On: 08-Oct-2014 Intent Sergei DO Libby A Comments: Lot:[id number]:05/20Dose:1mlRoute:IMSite:l armGiven By:RAMÓN signed BILATERAL MAMMOGRAMS ([id number])By: Sergei On: 08-Aug-2014 Intent Helga GALARZAa A INJECTION, VITAMIN B-12 On: 23-Jun-2014 Intent CYANOCOBALAMIN, UP TO 1000 MCG Comments: lot [id number] 03/19location L armroute imgiven by - msmithVIS [...] On: 21-Mar-2014 Intent HERMANN (Ankle Brachial Index) ([id number])By: On: 10-Feb-2014 Intent Fast DO, Libby A B 12 Injection, 1000 mcg (J3420)By: On: 11-Dec-2013 Intent Fast DO, Libby A Comments: Edgar dltd, [id number] flowsheetMegan CT - ChestBy: Fast DO, Libby A On: 11-Dec-2013 Intent Eprescribed prescriptions (G8553)By: On: 11-Dec-2013 Intent Fast DO, Libby A B 12 Injection, 1000 mcg (J3420)By: On: 30-Oct-2013 Intent Fast DO, Libby A Comments: lot: [id number]: 07/19site/route: L del/IMamt: 1mLVIS signed when applicableChelsea, POACHER OPERATOR Eprescribed prescriptions (G8553)By: On: 09-Sep-2013 Intent Rachel Leyva ELECTROCARDIOGRAM, COMPLETE (ECG) On: 27-Aug-2013 Intent ([id number])By: Ann Marie Cassidy CNP SPECIMEN HNDLNG/TRNSPRT, OFFC > LAB On: 18-Jun-2013 Intent ([id number])By: Ann Marie Cassidy CNP MAMMOGRAM, SCREENING, BOTH BREASTS On: 04-Jun-2013 Intent (37025)By: Fast DO Libby A DXA, BONE DENSITY, AXIAL SKELETON On: 04-Jun-2013 Intent (52074)By: Fast DO Libby A CT - ChestBy: [...] MAMMOGRAM, SCREENING, BOTH BREASTS On: 01-Feb-2013 Intent ([id number])By: Sergei GALARZA Libby A Comments: end april CT - ChestBy: Fast DO Libby A On: 01-Feb-2013 Intent Comments: march or april B 12 Injection, 1000 mcg (J3420)By: On: 01-Feb-2013 Intent Sergei DO Libby A Eprescribed prescriptions ([id number])By: On: 01-Feb-2013 Intent Rachel Leyva B 12 Injection, 1000 mcg (J3420)By: On: 30-Oct-2012 Intent Rachel Leyva Comments: Lot:Exp:08/17Lot:[id number]:1mlRoute:imSite:L deltoidGiven by:BMY DXA, BONE DENSITY, AXIAL SKELETON On: 30-Oct-2012 Intent (48756)By: Helga Mai DOa A Eprescribed prescriptions ([id number])By: On: 30-Oct-2012 Intent Rachel Leyva Nuclear Medicine - ThyroidBy: Noelle On: 24-Sep-2012 Intent , Margarita Noelle DO, Margarita Esophagram with 13 mmm tabletBy: On: 06-Sep-2012 Intent Noelle DO, Margarita Noelle DO, Margarita Eprescribed prescriptions ([id number])By: On: 06-Sep-2012 Intent Allyn Prajapati LPN B 12 Injection, 1000 mcg (J3420)By: On: 30-Jul-2012 Intent Helga Mai DOa A Comments: Lot #:[id number] date: mount given: 1mlRoute: IMSite given: left deltoidGiven by: KADY Rehman CT - ChestBy: Helga Mai DOa A On: 30-Jul-2012 Intent Ultrasound - ThyroidBy: Fast DO, On: 30-Jul-2012 Intent Libby A Eprescribed prescriptions ([id number])By: On: 30-Jul-2012 Intent Rachel Leyva Eprescribed prescriptions ([id number])By: On: 05-Jul-2012 Intent Allyn Prajapati LPN MAMMOGRAM, SCREENING, BOTH BREASTS On: 23-Apr-2012 Intent (47067)By: Libby Mai DO CT - Chest (IV Contrast Needed)By: On: 21-Nov-2011 Intent Libby Mai DO Comments: thi is a follow up CT for abnormal ct chest in april 2011 TDAP VACCINE >7 IM (78941)By: On: 25-Jul-2011 Intent Rachel Leyva Comments: Lot:[id number]:07/21/13Amt:prefilledRoute:IMSite:left deltGiven By: ANGEL Anthony CT - Abdomen & PelvisBy: Sergei GALARZA, On: 25-Jul-2011 Intent Libby Ballard Comments: stat call wet read FLU VAC, SPLIT, >3 YEARS, INTRAMUSC On: 25-Jul-2011 Intent (42295)By: Rachel Leyva Comments: pt refuses CT - ChestBy: Libby Mai DO On: 20-Apr-2011 Intent Comments: pe protocol Ultrasound - ThyroidBy: Sergei GALARZA, On: 04-Apr-2011 Intent Libby Ballard Comments: to be done in 6 months Spirometry (22430)By: Libby Mai DO On: 16-Mar-2011 Intent A Comments: good effort and curve normal Pulse Oximetry (58707)By: Sergei GALARZA, On: 16-Mar-2011 Intent Libby Ballard Comments: 97% EKG (07044)By: Libby Mai DO On: 16-Mar-2011 Intent Comments: [...] MAMMOGRAM, SCREENING, BOTH BREASTS On: 17-Jan-2011 Intent (51679)By: Libby Mai DO Pulse Oximetry (45761)By: Khanh MCDANIEL, On: 14-Jun-2010 Intent Reema Aerosol Treatment (12765)By: Khanh On: 14-Jun-2010 Intent Ann Marie MCDANIEL DXA, BONE DENSITY, AXIAL SKELETON On: 23-Dec-2009 Intent (37153)By: Libby Mai DO MAMMOGRAM, SCREENING, BOTH BREASTS On: 23-Dec-2009 Intent (90189)By: Libby Mai DO A EKG (56668)By: Rachel Leyva On: 23-Dec-2009 Intent Comments: ekg- 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 no change normal axis MAMMOGRAM, SCREENING, BOTH BREASTS On: 25-Nov-2008 Intent (72292)By: Libby Mai DO EKG (93983)By: Libby Mai DO On: 25-Nov-2008 Intent Comments: ekg showed normal sinus with no lateral t wave inversioon and poor rwave progression- twave inversion anteriolry unchanged Spirometry (16325)By: Libby Mai DO On: 25-Nov-2008 Intent A Radiology - Chest- PA and LatBy: Sergei On: 25-Nov-2008 Intent Libby GALARZA Pulse Oximetry (69246)By: Sergei GALARZA, On: 25-Nov-2008 Intent Libby Ballard Bio Z (09370)By: Libby Mai DO On: 14-May-2008 Intent Comments: [...] On: 09-Oct-2006 Intent Libby GALARZA Bio Z (68030)By: Libby Mai DO On: 09-Oct-2006 Intent Comments: high svr and low normal cardiac output- so will add in [facility] Planned Medications INFUSION, NORMAL SALINE SOLUTION [...] without anemia Hypomagnesemia : DISCONTINUED - MAGNESIUM (17892) Indication: Hypomagnesemia Macrocytosis without anemia : DISCONTINUED - METABOLIC PANEL, BASIC (42924) Indication: Macrocytosis without anemia Nonsmoker : How [...] Mixed hyperlipidemia : DISCONTINUED - LIPID PANEL (95993) Indication: Mixed hyperlipidemia Mixed hyperlipidemia : DISCONTINUED - METABOLIC PANEL, COMPREHENSIVE (36505) Indication: Mixed hyperlipidemia Mixed hyperlipidemia : DISCONTINUED - LIPID PANEL (07223) Indication: Mixed hyperlipidemia Diabetes mellitus type 2, uncontrolled, without complications : DISCONTINUED - METABOLIC PANEL, COMPREHENSIVE (27792) Indication: Diabetes mellitus type 2, uncontrolled, without [...] Advance Directives Name Dates Details Immunization Registry [place] - Effective on Effective: 25-Jul-201707/25/2017. Expiration date [...] failure, Vitamin D deficiency (268.9), CAD in [place] [facility] Office Visit On: [...] severe, Vitamin D deficiency (268.9), CAD in [place] [facility] Office Visit On: [...] bronc hitis, post viral cough-given z-pack and gtbtyatlod-Oeaap-siiws not feeling good- fatigue, fever, chills, high [...] The patient does have durable power of title attorney and living will. The patient has noticed nothing from the geriatic depression scale. Other providers contributing to the patient's care are athletic trainer, gastrologist and religious assistant. Encounter Diagnosis: BMI 26.0-26.9,adult, Hypomagnesemia, Nonsmoker, [...] issues sent to Transitional care unit at [place]. Saw Dr. Greene in trasitional care, had [...] for xofran.Told it was colitis. Admitted to [facility] and had monitoring then cath found 25% [place] cardio myopthy, placed on carvediolol 6.25mg Recently went to [facility] ER seen after Nonstemi, and low EF 25% [...] is transitioning into care from a hospital ([facility] 10/23 to 10/27 pneumonia) and a summary [...] - Reason for hospitalization note: (was in [facility] er [place] for bronchitis I used all [...] The patient does have durable power of title attorney and living will. The patient has noticed lack of energy. Other providers contributing to the patient's care are ambulance operations supervisor and other: (eye exam - 1 [...] the fatigue is because traveling alot for [employer] and up late and trial coming upEncounter [...] shot- and she hasnt been back to [facility]- us reviewed and told her to [...] evaluation: Surgery is with Dr. Yepez in [place]- [phone] and fax- [phone]- had stimulator removed- then had mri of [...] pressure (and trying to use hands or territory development manager anything). There is no radiation. Associated [...] of oral herpes, was in and seen an nmarie twice and zovirax didnt relieve them. Pt [...] bp high and said becuase son in care home, [ADDITIONAL REASON] Follow up, Laboratory Test Results [...] poorly. Patient has been compliant with instructions. 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
--- OUTSIDE RECORDS SUMMARY | 2018-10-01 10:00 | XMS RPT_ITS | Continuity of Care Document ---
:1945 Author Organization [facility] Address [address] [place] [address] Phone Care Team Providers Name Role Phone [...] Bronchitis (J40, 490) Status: Active CAD in [place] artery (I25.10, 414.01) Status: Active Canker sore [...] colon) (Z12.11, V76.51) Comments: last scope 03/20 [facility] Status: Active Encounter for screening mammogram [...] d ay (can buy a pedometer at [email or web address]), -5 days of week of 30 mins [...] DO, DO, Kathleen Start : 04-Jun-2018 Active Comments:[facility] M48.02 cervical .9 jokqtyhopfacaV71.8 facial nerve dqekctpvS56.1 lumbar laminectomycalled to bmt 08/30/17 venessa cowart [...] 10-Apr-2018 Active VITAMIN C & E COMBINATION, 234-330MQ-LYMW (Oral Capsule) 1 (one) Capsule Capsule qd [...] : 09-Apr-2018 Inactive Comments:Sixty script given to ldnwzwrQ88.0 AUGMENTIN, 875-125MG (Oral Tablet) 1 Tablet bid [...] : 28-Jan-2016 End : 07-Feb-2016 Inactive NYSTATIN, 358572FXVJ/GM (External Cream) apply Cream bid to affected [...] Start : 25-Oct-2007 Inactive VITAMIN D (ERGOCALCIFEROL), 07392WUGT (Oral Capsule) 1 Capsule q weekly for [...] physical examination (Z01.818, V72.83) Comments: ekg at [facility] with records from recent hospitalization Status: [...] 786.05) Comments: See referral letter from [facility]sp[facility] scanned document Dr Munguia saw tim- [...] and Obrych, surgical decompression /fusion c3-c6- [facility] Completed Date Value Details 07-May-2018 Discharge Instruction Result: Comments: See Note; NOTES: [facility] Medical Records Department [address] [place] [address] Discharge Instruction 05/07/18 0931 MR#: [id number] Acct: [id number] Name: Radha MAHARAJ Rep #: [id number] : 1945 72 From: Parminder Blanco MD [...] Emergency Room. Call 911 if necessary. 05/07/18 1546 <Electronically signed by Parminder Blanco MD> Date J brent Blanco MD Cosigner Signature (If Indicated): Date CC: Margarita Drake DO 07-May-2018 Emergency Department Summary Result: Comments: See Note; NOTES: [facility] Medical Records Department [address] [place] [address] Emergency Department Summary 05/07/18 0838 MR#: [id number] Acct: [id number] Name: MAR MAHARAJ Rep #: [id number] : 1945 72 From: Parminder Blanco MD PCP: Margarita Drake DO Status: DEP ER - ER Visit Summary Date of Service: 05/07/18 Chief Complaint: Nausea, vomiting and diarrhea History of Present Illness: The patient is a 72 F has a past medical history of valvular heart disease, hypertension, cholesterol spinal stenosis and multiple surgeries. Patient states she zoran t to [employer] on Monday. And she developed nausea vomiting [...] Dehydration This note was ge nerated with Continuum[employer] dictation software. It may contain incorrect words, [...] your Primary Care Provider. Call [facility] ([phone]) or report to the closest Emergency Room. Call 911 if necessary. 05/07/18 1545 <Elec tronically signed by Parminder Blanco MD> Date Parminder Blanco MD Cosigner Signature (If Indicated): Date CC: Margarita Drake DO 22-Feb-2018 Downtime Report Result: Comments: See Note; NOTES: [facility] Medical Records Department [address] [place] [address] Downtime Report MR#: [id number] Acct: [id number] Name: MAR MAHARAJ Rep #: [id number] : 1945 72 From: Gilson Washington PCP: Margarita Drake DO Status: REG CLI This patient was seen during an EMR downtime February 05, 2018 - February 12, 2018. This patient may have a combination o f paper and electronic documentation or all paper documentation. All documentation is viewable within the e-chart portion of [facility] for each patient visit. 08-Feb-2018 Spine Lumbar (Routine) Result: Comments: See Note; NOTES: [facility] Imaging Services [address] [place] [address] Spine Lumbar (Routine) MR#: [id number] Acct: [id number] Name: MAR MAHARAJ Rep #: [id number] : 1945 F 72 From: Dylan Donato MD PCP: Margarita Drake DO Status: REG CLI Study: Spine Lumbar (Routine) Date of Exam: 02/08/18 Exam# [id number] Ordering Dr: Jose Alejandro Yepez STUDY: MRI [...] , CC: NICO YEPEZ; Margarita Drake DO Heavy Forger: Signed 08-Feb-2018 Spine Lumbar without Contrast Result: Comments: See Note; NOTES: [facility] Imaging Services [address] [place] [address] Spine Lumbar without Contrast MR#: [id number] Acct: [id number] Name: CAROL ANNMAR S Rep # : [id number] : 1945 F 72 From: Robles Mejia PCP: Margarita Drake DO Status: REG CLI Study: Spine Lumbar without Contrast Date of Exam: 02/08/18 Exam# [id number] Ordering Dr: Jose Alejandro Yepez STUDY: C [...] paraspinous soft tissue structures. ORDE R #: [id number] CT/Spine Lumbar without Contrast IMPRESSION: Multilevel degenerative change discussed above. Hardware as described. Right L3 pedicle screw appears broken. Grade 1 anterolisthesis of L4 on L5. Laminectomies. Demineralization. Electronically Signed: Robles Mejia DO at 10:57 EDT , Service support , CC: JOSE ALEJANDRO YEPEZ; Margarita Drake DO Heavy Forger: Signed 09-Jan-2018 Pulmonary Visit Report Result: Comments: See Note; NOTES: [facility] [address] [place] [address] OFFICE VISIT Date of Service: 01/09/18 MR#: [id number] Acct: [id number] Name: MAR HOLLIDAY Rep #: [id number] : 1945 Provider: Adair Wu MD Age/Sex: 72/F Location: [facility] [place].[facility] Status: Signed Assessment AND Plan Problems 1. 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 Medical Records Department [address] [place] [address] Emergency Department Summary 12/03/17 1656 MR#: [id number] Acct: [id number] Name: MAR MAHARAJ Rep #: [id number] : 1945 72 From: Arya Torrez MD [...] blunt trauma This note was generated with U[employer] dictation software. It may contain incorrect words, spelling, and punctuation that were not noted in review of the chart prior to signing ED Disposition - Plan for ED Patient: Disposition: Home or Assisted Living Chief Complaint: Chest Other Instructions: ED Contusion Vs Minor Fx Rib Prescriptions: Hydrocodone Bitart/Apap 5-325 [Lowgap 5MG-325MG] 1 tab PO Q6H PRN PRN 3 Days #10 tab PRN Reason: Alena n Referrals: Margarita Drake DO [Primary Care Provider] - 1 Week if not improving What to do if you have Problems For any increased pain, shortness of breath, bleeding, nausea or vomiting, chest pa in, or any unexpected problems, contact your Primary Care Provider. Call [facility] ([phone]) or report to the closest Emergency Room. Call 911 if necessary. 12/03/17 1706 <Electron ically signed by Arya Torrez MD> Date Arya Torrez MD Cosigner Signature (If Indicated): Date CC: Margarita Drake DO 03-Dec-2017 Chest PA and Lateral Result: Comments: See Note; NOTES: [facility] Imaging Services [address] [place] [address] Chest PA and Lateral MR#: [id number] Acct: [id number] Name: MAR MAHARAJ Rep #: [id number] : 1945 F 72 From: Lotus Anthony MD PCP: Margarita Drake DO Status: DEP ER Study: Chest PA and Lateral Date of Exam: 12/03/17 Exam# [id number] Ordering Dr: Arya Torrez MD STUDY: X-RAY [...] CC: Margarita Drake DO; Arya Torrez MD Heavy Forger: Signed 18-Oct-2017 SCREENING MAMM (CAD), BILAT Result: Comments: See Note; NOTES: [facility] Imaging Services [address] [place] [address] SCREENING MAMM (CAD), BILAT MR#: [id number] Acct: [id number] Name: MAR MAHARAJ Rep #: [id number] : 1945 F 72 From: Florian Valenzuela MD PCP: Margarita Drake DO Status: REG CLI Study: SCREENING MAMM (CAD), BILAT Date of Exam: 10/18/17 Exam# [id number] Ordering Dr: Alysia Drake DO MAMMOGRAPHY - [...] 19, 2015 and November 17, 2014. FINDINGS: [place] [facility] Composition: There are scattered areas of [...] delay biopsy of a clinically suspicious abnormality. [id number] Electronically Signed: Florian Howard i, MD at 13:51 EST Tel [phone], Service support , CC: Margarita Drake DO Heavy Forger: Signed 13-Oct-2017 Cardiology Visit Report Result: Comments: See Note; NOTES: [facility] [address] [place] [address] OFFICE VISIT Date of Service: 10/13/17 MR#: [id number] Acct: [id number] Name: MAR MAHARAJ Rep #: [id number] : 1945 Provider: Sergio Lawler MD Age/Sex: 72/F Location: [facility] [place] Status: Signed HPI HPI Chief Complaint: [...] reading without diagnosis of hypertension (Chronic) Other alf (current) drug ther apy (Chronic) Nonrheumatic aortic (valve) insufficiency (Chronic) Nonrheumatic tricuspid (valve) insufficiency (Chronic) Other secondary pulmonary hypertension (Chronic) Nonischemic cardiomyopathy (Director Report deangelo) Fatigue (Chronic) Hx pulmonary embolism (Resolved) [...] AND Plan 1. Coronary artery disease involving [place] coronary artery of [place] heart without angina pectoris I25.10 Mild Plan [...] vis,est,level 3 Diagnoses Coronary artery disease involving [place] coronary artery of [place] heart without angina pectoris I25.10 Coronary Disease-Associated Artery/Lesion type: [place] artery [place] vs. transplanted heart: [place] heart Associated angina: without angina Essential hyperten tamika I10 Hypertension type: essential hypertension Coding Level of Care Code Off vis,est,level 3 Diagnoses Coronary artery disease involving [place] coronary artery of [place] heart without angina pect wilber I25.10 Coronary Disease-Associated Artery/Lesion type: [place] artery [place] vs. transplanted heart: [place] heart Associated angina: without angina Essential hypertension I10 Hypertension type: esse ntial hypertension 10/13/17 1546 <Electronically signed by Sergio Lawler MD> Date Sergio Lawler MD Cosigner Signature: Date _ (if applicable) CC: Margarita Drake DO 26-Sep-2017 Chest PA and Lateral Result: Comments: See Note; NOTES: [facility] Imaging Services [address] [place] [address] Chest PA and Lateral MR#: [id number] Acct: [id number] Name: MAR MAHARAJ Rep #: [id number] : 1945 F 72 From: Quinn Pringle PCP: Margarita Drake DO Status: REG CLI Study: Chest PA and Lateral Date of Exam: 09/26/17 Exam# [id number] Ordering Dr: Allyn Manley IRONER SOCK-C STUDY: X-RAY C HEST REASON FOR EXAM: [...] , CC: HUANG Manley; Margarita Drake DO Heavy Forger: Signed 22-May-2017 History and Physical Exam Result: Comments: See Note; NOTES: [facility] Medical Records Department [address] [place] [address] History and Physical 05/22/17 1809 MR#: [id number] Acct: [id number] Name: RUDY MAHARAJ Rep #: [id number] : 1945 71 From: Edward Chao DO [...] (Chronic) Sinusitis, chronic (Chronic) Takotsubo cardiomyopathy (Director Report deangelo) chairi malformations/p posterior decompr (Chronic) Allergies [...] 7 back surgeries Psychiatric History: Anxiety, Depression [employer] History: ovarian cancer - Status post bilateral [...] Summary Result: Comments: See Note; NOTES: [facility] Medical Records Department [address] [place] [address] Emergency Department Summary 05/22/17 1707 MR#: [id number] Acct: [id number] Name: MAR MAHARAJ Rep #: [id number] : 1945 71 From: Angelo William MD [...] your Primary Care Provider. Call [facility] barnard ([phone]) or report to the closest Emergency Room. Call 911 if necessary. 05/22/17 1710 <Electronically signed by Angelo William MD> Date Angelo William MD Cosigner Signature (If Indicated): Date CC: Ann Marie Cassidy 22-May-2017 Brain/Head without Contrast Result: Comments: See Note; NOTES: [facility] Imaging Services [address] [place] [address] Brain/Head without Contrast MR#: [id number] Acct: [id number] Name: MAR MAHARAJ Rep #: [id number] : 1945 F 71 From: Dorothy Barber MD PCP: Ann Marie Cassidy Status: REG ER Study: Brain/Head without Contrast Date of Exam: 05/22/17 Exam# [id number] Ordering Dr: Angelo William MD STUDY : [...] CC: Ann Marie Cassidy; Angelo William MD Heavy Forger: Signed 22-May-2017 Chest 1 View (Portable) Result: Comments: See Note; NOTES: [facility] Imaging Services [address] [place] [address] Chest 1 View (Portable) MR#: [id number] Acct: [id number] Name: MAR MAHARAJ Rep #: [id number] : 1945 F 71 From: Dorothy Barber MD PCP: Ann Marie Cassidy Status: REG ER Study: Chest 1 View (Portable) Date of Exam: 05/22/17 Exam# [id number] Ordering Dr: Angelo William MD STUDY: X-RAY [...] CC: Ann Marie Cassidy; Angelo William MD Heavy Forger: Signed 17-May-2017 Emergency Department Summary Result: Comments: See Note; NOTES: [facility] Medical Records Department [address] [place] [address] Emergency Department Summary 05/17/17 1543 MR#: [id number] Acct: [id number] Name: MAR MAHARAJ Rep #: [id number] : 1945 71 From: Tab Peacock MD [...] your Primary Care Provider. Call [facility] ([phone]) or report to the closest Emergency Room. Call 911 if necessary. 05/17/17 1652 <Electronically signed b y Tab Peacock MD> Date Tab Peacock MD Cosigner Signature (If Indicated): Date CC: Ann Marie Cassidy 28-Apr-2017 Emergency Department Summary Result: Comments: See Note; NOTES: [facility] Medical Records Department [address] [place] [address] Emergency Department Summary 04/28/17 1059 MR#: [id number] Acct: [id number] Name: MAR MAHARAJ Rep #: [id number] : 1945 71 From: Tab Peacock MD [...] Primary Care Provider. Call [facility] cliff ([phone]) or report to the closest Emergency Room. Call 911 if necessary. 04/28/17 1306 <Electronically signed by Tab Peacock MD> Date Tab Peacock MD Cosigner Signature (If Indicated): Date CC: Ann Marie Cassidy 28-Apr-2017 Chest 1 View (Portable) Result: Comments: See Note; NOTES: [facility] Imaging Services [address] [place] [address] Chest 1 View (Portable) MR#: [id number] Acct: [id number] Name: MAR MAHARAJ Rep #: [id number] : 1945 F 71 From: Sekou Bose DO PCP: Ann Marie Cassidy Status: REG ER Study: Chest 1 View (Portable) Date of Exam: 04/28/17 Exam# [id number] Ordering Dr: Tab Peacock MD STUDY: X-RAY [...] CC: Ann Marie Cassidy; Tab Peacock MD Heavy Forger: Signed 12-Apr-2017 Echocardiogram Complete Result: Comments: See Note; NOTES: [facility] Cardiovascular Services [address] [place] [address] Echo Complete 04/12/17 1150 MR#: [id number] Acct: [id number] Name: MAR MAHARAJ Rep #: [id number] : 1945 71 From: Sergio Lawler MD [...] Dictated: 04/12/17 1 150 Date Transcribed: 04/12/171648 Heavy Forger: Signed 13-Mar-2017 Finger(s) Min 2 Views Result: Comments: See Note; NOTES: [facility] Imaging Services [address] [place] [address] Verdana 4d Finger(s) Min 2 Views MR#: [id number] Acct: [id number] Name: MAR MAHARAJ Re p #: [id number] : 1945 F 71 From: Maldonado Pablo DO PCP: Ann Marie Cassidy Status: REG CLI Study: Finger(s) Min 2 Views Date of Exam: 03/13/17 Exam# [id number] Ordering Dr: Libby Mai DO STUDY: X-RA [...] Maldonado Pablo DO at 22:01 EDT Tel [phone], Service support , CC: Ann Marie Demarco sa; Libby Mai DO Heavy Forger: Signed 15-Feb-2017 Cerv Spine 4 or 5 Views Result: Comments: See Note; NOTES: [facility] Imaging Services [address] [place] [address] Verdana 4d Cerv Spine 4 or 5 Views MR#: [id number] Acct: [id number] Name: MAR MAHARAJ Rep #: [id number] : 1945 F 71 From: Vitaly Turner MD PCP: Ann Marie Cassiyd Status: REG CLI Study: Cerv Spine 4 or 5 Views Date of Exam: 02/15/17 Exam# [id number] Ordering Dr: Jose Alejandro Yepez STUDY: X [...] CC: Ann Marie Cassidy; JOSE ALEJANDRO YEPEZ Heavy Forger: Signed 14-Feb-2017 Spine Lumbar (Routine) Result: Comments: See Note; NOTES: [facility] Imaging Services [address] [place] [address] Verdana 4d Spine Lumbar (Routine) MR#: [id number] Acct: [id number] Name: MAR MAHARAJ Naveed ep #: [id number] : 1945 F 71 From: Dylan Donato MD PCP: Ann Marie Cassidy Status: REG CLI Study: Spine Lumbar (Routine) Date of Exam: 02/14/17 Exam# [id number] Ordering Dr: Abdiel Betts MD LORENA DY: [...] CC: Ann Marie Cassidy; Abdiel Betts MD Heavy Forger: Signed 22-Jan-2017 Abdomen/Pelvis without Cont Result: Comments: See Note; NOTES: [facility] Imaging Services [address] [place] [address] Verdana 4d Abdomen/Pelvis without Cont MR#: [id number] Acct: [id number] Name: JOHN MAHARAJ Rep #: [id number] : 1945 F 71 From: Jeb Piedra MD PCP: Ann Marie Cassidy Status: REG ER Study: Abdomen/Pelvis without Cont Date of Exam: 01/22/17 Exam# [id number] Ordering Dr: Stacy Corey MD STUDY: CT [...] CC: Ann Marie Cassidy; Noelle Corey MD Heavy Forger: Signed 25-Dec-2016 Venous Duplex Lower Extremity Result: Comments: See Note; NOTES: [facility] Cardiovascular Services [address] [place] [address] Venous Duplex US, Unilateral 12/23/16 1042 MR#: [id number] Acct: [id number] Name: MAR DEAN Rep #: [id number] : 1945 71 From: David Hawthorne MD [...] Date Dictated: 12/23/16 1042 Date Transcribed: 12/25/161936 Heavy Forger: Signed 19-Dec-2016 Chest 1 View (Portable) Result: Comments: See Note; NOTES: [facility] Imaging Services [address] [place] [address] Verdana 4d Chest 1 View (Portable) MR#: [id number] Acct: [id number] Name: MAR MAHARAJ Rep #: [id number] : 1945 F 71 From: Alfa Bettencourt MD PCP: Ann Marie Cassidy Status: REG ER Study: Chest 1 View (Portable) Date of Exam: 12/19/16 Exam# [id number] Ordering Dr: Edin Rodriguez MD STUDY: X- [...] CC: Ann Marie Cassidy; Edin Rodriguez MD Heavy Forger: Signed 19-Dec-2016 Abdomen/Pelvis without Cont Result: Comments: See Note; NOTES: [facility] Imaging Services [address] [place] [address] Verdana 4d Abdomen/Pelvis without Cont MR#: [id number] Acct: [id number] Name: JOHN MAHARAJ Rep #: [id number] : 1945 F 71 From: Alfa Bettencourt MD PCP: Ann Marie Cassidy Status: REG ER Study: Abdomen/Pelvis without Cont Date of Exam: 12/19/16 Exam# [id number] Ordering Dr: Edin Rodriguez MD S DY: [...] CC: Ann Marie Cassidy; Edin Rodriguez MD Heavy Forger: Signed 15-Dec-2016 Emergency Department Summary Result: Comments: See Note; NOTES: [facility] Medical Records Department [address] [place] [address] Emergency Department Summary MR#: [id number] Acct: [id number] Name: JOHN MAHARAJ Rep #: [id number] : 1945 71 From: Sheila Amaya MD [...] pain SHEILA AMAYA MD T: NTS JOB: [id number] 12/15/16 1522 <Electronically signed by Sheila Amaya MD> Date Sheila Amaya MD Cosigner Signature (If Indicated): Date CC: Ann Marie Cassidy Date Dictated: 12/13/162342 Date Transcribed: 12/13/162342 Heavy Forger: Signed 15-Dec-2016 12 Lead Electrocardiogram Result: Comments: See Note; NOTES: [facility] Cardiovascular Services [address] [place] [address] 12 Lead EKG 12/13/16 1603 MR#: [id number] Acct: [id number] Name: MAR MAHARAJ p #: [id number] : 1945 71 From: Vineet Merlos MD [...] undetermined Abnormal ECG Confirmed by VINEET MERLOS ([id number]), mapping editor CHIRSTIAN WASHINGTON ([id number]) on 017 1:15:30 PM Referred By: JOSE LUIS Confirmed By:VINEET MERLOS 12/15/16 1315 Date Vineet Merlos MD CC: Ann Marie Cassidy Date Dictated: 12/13/161602 Date Transcribed: 12/13/161602 Heavy Forger: Signed 14-Dec-2016 Venous Duplex Lower Extremity Result: Comments: See Note; NOTES: [facility] Cardiovascular Services [address] [place] [address] Venous Duplex US, Unilateral 12/13/16 1612 MR#: [id number] Acct: [id number] Name: MAR DEAN Rep #: [id number] : 1945 71 From: Rj Cleary MD [...] Date Dictated: 12/13/16 1612 Date Transcribed: 12/14/16602 Heavy Forger: Signed 13-Dec-2016 Discharge Instruction Result: Comments: See Note; NOTES: [facility] Medical Records Department [address] [place] [address] Discharge Instruction 12/13/161901 MR#: [id number] Acct: [id number] Name: Radha MAHARAJ Rep #: [id number] : 1945 71 From: Sheila Amaya MD [...] cont act your Primary Care Provider. Call [facility] ([phone]) or report to the closest Emergency Room. Call 911 if necessary. 12/13/162044 <Electronically signed by Sheila Amaya MD&amp ;#62; Date Sheila Amaya MD Cosign Signature (If Indicated): Date CC: Ann Marie Cassidy 13-Dec-2016 Chest 1 View (Portable) Result: Comments: See Note; NOTES: [facility] Imaging Services [address] [place] [address] Verdana 4d Chest 1 View (Portable) MR#: [id number] Acct: [id number] Name: MAR MAHARAJ Rep #: [id number] : 1945 F 71 From: Trent Arias MD PCP: Ann Marie Cassidy Status: REG ER Study: Chest 1 View (Portable) Date of Exam: 12/13/16 Exam# [id number] Ordering Dr: Sheila Amaya MD STUDY: X-RAY [...] MD at 17:07 EDT , Service support [phone], CC: Ann Marie Cassidy; Sheila Amaya MD Heavy Forger: Signed 13-Dec-2016 Abdomen/Pelvis W IV Cont ONLY Result: Comments: See Note; NOTES: [facility] Imaging Services [address] [place] [address] Verdana 4d Abdomen/Pelvis W IV Cont ONLY MR#: [id number] Acct: [id number] Name: LILI MAHARAJ Rep #: [id number] : 1945 F 71 From: Trent Arias MD PCP: Ann Marie Cassidy Status: REG ER Study: Abdomen/Pelvis W IV Cont ONLY Date of Exam: 12/13/16 Exam# [id number] Ordering Dr: Sheila Amaya MD STUDY: CT [...] MD at 18:25 EDT , Service support [phone], CC: Ann Marie Cassidy; Sheila Amaya MD Heavy Forger: Signed 15-Nov-2016 History and Physical Exam Result: Comments: See Note; NOTES: [facility] Medical Records Department [address] [place] [address] History and Physical 11/09/16 1003 MR#: [id number] Acct: [id number] Name: Radha MAHARAJ Rep #: [id number] : 1945 71 From: Glenn Ro PCP: Ann Marie Cassidy Status: PRE IN Location: [facility] DATE OF SERVICE: 11/22/2016 This is [...] hip arthroplasty in 2003, Dr. Darien Avina, [facility]. 2. Hysterectomy. 3. Appendectomy. 4. Cholec ystectomy. 5. Brain surgery x2 Arnold-Chiari malformation. 6. Carpal tunnel bilaterally. 7. Cervical surgery, December 2013 at [facility]. 8. Right total knee arthroplasty on August 19, 2014, Dr. Darien Avina , [facility]. 9. Laminectomy 2000, instrumentation lumbar fusion. [...] of left knee dated October 17, 2016, [facility], weightbearing, AP, tunnel, sunrise, lateral views with [...] the hospital. YADIRA Narvaez T: RUFUS JOB: [id number] 11/15/16 0839 <Electronically signed by Glenn Ro > Date: Time: Glenn Ro CC: Ann Marie Cassidy; Glenn Ro Date Dictated: 11/09/16 1003 Date Transcribed: 7 1003 Heavy Forger: Signed ____ I have re-examined the patient. There are no clinical changes since date of exam. ____ See Progress Notes for Changes ____ Dictated on Admission Date: ___ Time: Signature: -Oct-2016 History and Physical Exam Result: Comments: See Note; NOTES: [facility] Medical Records Department [address] [place] [id number] History and Physical 10/19/16 1537 MR#: [id number] Acct: [id number] Name: Radha MAHARAJ Rep #: [id number] : 1945 71 From: Glenn Ro PCP: Ann Marie Cassidy Status: PRE IN Location: [facility] DATE OF SERVICE: 10/25/2016 This is [...] [facility] pleased with [facility] [...] n 2003, Dr. Darien Avina, [facility]. 2. Hysterectomy. 3. Appendectomy. 4. Cholecystectomy. 5. Brain surgery x2. Arnold-Chiari malformation. 6. Carpal tunnel bilaterally. 7. Cervical surgery in [place] 2013 in [place]. 8. Right total knee arthroplasty on August 19, 2014, Dr. Darien Avina, [facility]. 9. Laminectomy 2001 instrumentation, lumbar fusion. [...] X-rays of l eft knee dated 10/17/2016, [facility], weightbearing, AP, tunnel, [...] Ro Date Dictated: 10/19/161536 Date Transcribed: 10/19/161536 Heavy Forger: Toni igned ____ I have re-examined the patient. There are no clinical changes since date of exam. ____ See Progress Notes for Changes ____ Dictated on Admission Date: Time: Sig nature: 23-Oct-2016 Chest PA and Lateral Result: Comments: See Note; NOTES: [facility] Imaging Services [address] [place] [address] Jeffrydana 4d Chest PA and Lateral MR#: [id number] Acct: [id number] Name: MAR MAHARAJ Rep #: [id number] : 1945 F 71 From: Heraclio Meredith MD PCP: Ann Marie Cassidy Status: PRE ER Study: Chest PA and Lateral Date of Exam: 10/23/16 Exam# [id number] Ordering Dr: Edin Horton MD STUDY: X-RAY [...] MD at 14:44 EST , Service support [phone], CC: Chay Cassidy; Edin Horton MD Heavy Forger: Signed 23-Sep-2016 Echocardiogram Complete Result: Comments: See Note; NOTES: [facility] Cardiovascular Services [address] [place] [address] Echo Complete 09/23/16 1311 MR#: [id number] Acct: [id number] Name: MAR MAHARAJ Rep #: [id number] : 1945 71 From: Sergio Lawler MD Attending Dr: Sergio Lawler MD Status: REG CLI Ordering Dr: Sergio Lawler MD Date: 09/23/16 Location: [facility] Sex: F C Admitted: Reason [...] Dictated: 09/23/16 1311 Date Transcribed: 09/23/16 152 Heavy Forger: Signed 21-Sep-2016 12 Lead Electrocardiogram Result: Comments: See Note; NOTES: [facility] Cardiovascular Services [address] [place] [address] 12 Lead EKG 09/18/16 1204 MR#: [id number] Acct: [id number] Name: MAR MAHARAJ Re p #: [id number] : 1945 71 From: Corey Harrison MD [...] Abnormal ECG Confirmed by OMAR ARAGON, COREY ([id number]), mapping editor CHRISTIAN WASHINGTON ([id number]) on 09/21/2016 1:40:15 PM Referred By: FLORIN Confirmed By:COREY HARRISON MD 09/21/16 1340 Date Corey Harrison MD CC: Ann Marie Cassidy Date Dictated: 09/18/16 1204 Date Transcribed: 09/18/16 1204 Heavy Forger: Signed 20-Sep-2016 Emergency Department Summary Result: Comments: See Note; NOTES: [facility] Medical Records Department [address] [place] [address] Emergency Department Summary MR#: [id number] Acct: [id number] Name: JOHN MAHARAJ Rep #: [id number] : 1945 71 From: Edin Rodriguez MD [...] C: Ann Marie Cassidy T: NTS JOB: [id number] 09/20/16 1522 <Electronically signed by Edin Rodriguez MD> Date __ Edin Rodriguez MD Cosigner Signature (If Indicated): Date CC: Ann Marie Cassidy Date Dictated: 09/18/161338 Date Trans cribed: 09/18/161338 Heavy Forger: Signed 18-Sep-2016 Discharge Instruction Result: Comments: See Note; NOTES: [facility] Medical Records Department [address] [place] [address] Discharge Instruction 09/18/16 1334 MR#: [id number] Acct: [id number] Name: Radha MAHARAJ Rep #: [id number] : 1945 71 From: Edin Rodriguez MD [...] your Primary Care Provider. Call [facility] ([phone]) or report to the closest Emergency Room. Call 911 if necessary. 09/18/16 1336 & #60;Electronically signed by Edin Rodriguez MD> Date Edin Rodriguez MD Cosigner Signature (If Indicated): Date CC: Ann Marie Cassidy 18-Sep-2016 Chest PA and Lateral Result: Comments: See Note; NOTES: [facility] Imaging Services [address] [place] [address] Verdana 4d Chest PA and Lateral MR#: [id number] Acct: [id number] Name: MAR MAHARAJ Rep #: [id number] : 1945 F 71 From: Rolly Aviles MD PCP: Ann Marie Cassidy Status: REG ER Study: Chest PA and Lateral Date of Exam: 09/18/16 Exam# [id number] Ordering Dr: Edin Rodriguez MD STUDY: X-RAY [...] 13:29 EST Te l , Service support [phone], CC: Ann Marie Cassidy; Edin Rodriguez MD Heavy Forger: Signed 17-Aug-2016 Knee 4 or More Views Result: Comments: See Note; NOTES: [facility] Imaging Services [address] [facility] [place] [address] Verdana 4d Knee 4 or More Views MR#: [id number] Acct: [id number] Name: MAR MAHARAJ Rep #: [id number] : 1945 F 71 From: Florian Valenzuela MD PCP: Davian Mccray Status: REG CLI Study: Knee 4 or More Views Date of Exam: 08/17/16 Exam# [id number] Ordering Dr: Gemma Nina MD STUD Y: [...] Florian Valenzuela MD at 15:48 EST Tel [phone], Service support [phone], CC: Tejal Mccray; Gemma Nina MD Heavy Forger: Signed 17-Aug-2016 Tibia AND Fibula 2 Views Result: Comments: See Note; NOTES: [facility] Imaging Services [address] [place] [address] Verdana 4d Tibia AND Fibula 2 Views MR#: [id number] Acct: [id number] Name: MAR MAHARAJ Rep #: [id number] : 1945 F 71 From: Florian Valenzuela MD PCP: Davian Mccray Status: REG CLI Study: Tibia AND Fibula 2 Views Date of Exam: 08/17/16 Exam# [id number] Ordering Dr: Gemma Nina STUDY: X-RAY - [...] Florian Valenzuela MD at 15:42 EST Tel [phone], Service support [phone], CC: Davian Nina MD Heavy Forger: Signed 01-Jul-2016 Venous Duplex Lower Extremity Result: Comments: See Note; NOTES: [facility] Cardiovascular Services [address] [place] [address] Venous Duplex US, Unilateral 07/01/16 0850 MR#: [id number] Acct: [id number] Name: MAR MAHARAJ Rep #: [id number] : 1945 70 From: David Hawthorne MD Attending Dr: Luly Noriega IRONER SOCK Status: REG CLI Ordering Dr: Luly Noriega IRONER SOCK-C Date: 07/01/16 Location: [facility] Sex: F C [...] called and/or faxed augmentation. to Luly Noriega [facility] @ 9:20 am @ [facility] is [...] Date Dictated: 07/01/16 0850 Date Transcribed: 07/01/161936 Heavy Forger: Signed 07-Jun-2016 6 Minute Walk Test Result: Comments: See Note; NOTES: [facility] Pulmonary Services/Neurology [address] [place] [address] MR#: [id number] Acct: [id number] Name: MAR MAHARAJ Rep #: [id number] : 1945 70 From: Adair Wu MD Referring Dr: Luly Noriega NP Date: Ordering Dr: Sex: F C Location: PSN PSN 6 Minute Walk Test - 6 Minute Walk Test 6 Minute Walk Test: 6 Minute Walk Test PSN:6-Minute Walk Test Start: 06/07/16 11:18 Freq: Status: Active Document 06/07/16 11:18 REK (Rec: 06/07/16 11:21 REK [id number]) 6 Minute Walk Test Date Performed 06/07/16 [...] CC: Date Dictated: 06/07/161540 Date Transcribed: 06/07/161540 Heavy Forger: Adair Wu Signed 25-Apr-2016 Chest PA and Lateral Result: Comments: See Note; NOTES: [facility] Imaging Services [address] [place] [address] Verdana 4d Chest PA and Lateral MR#: [id number] Acct: [id number] Name: MAR MAHARAJ Katy p #: [id number] : 1945 F 70 From: Stephen Walton DO PCP: Davian Mccray Status: [facility] ER Study: Chest PA and Lateral Date of Exam: 04/25/16 Exam# [id number] Ordering Dr: Cristhian Mandujano MD STUDY: X-R [...] Stephen Walton DO at 20:12 EDT Tel [phone], Service support [phone], CC: CRISTHIAN MANDUJANO MD; Davian Mccray Heavy Forger: Signed 25-Apr-2016 Abdomen/Pelvis without Cont Result: Comments: See Note; NOTES: [facility] Imaging Services [address] [place] [address] Verdana 4d Abdomen/Pelvis without Cont MR#: [id number] Acct: [id number] Name: GABE MAHARAJ S Rep #: [id number] : 1945 F 70 From: Stephen Walton DO PCP: Davian Mccray Status: REG ER Study: Abdomen/Pelvis without Cont Date of Exam: 04/25/16 Exam# [id number] Ordering Dr: Cristhian Mandujano MD STUDY: CT [...] Stephen Walton DO at 19:00 EDT Tel [phone], Service support [phone], CC: CRISTHIAN MANUDJANO MD; Davian Mccray Heavy Forger: Signed 12-Mar-2016 Emergency Department Summary Result: Comments: See Note; NOTES: [facility] Medical Records Department [address] [place] [address] Emergency Department Summary MR#: [id number] Acct: [id number] Name: MAR MAHARAJ Rep #: [id number] : 1945 70 From: Darien Warren MD [...] contusion. Darien Warren MD T: NTS JOB: [id number] 03/12/16 0306 <Electronically signed by Darien Warren MD> Date Darien Warren MD Cosigner Signature (If Indicated): Date CC: Davian Mccray Date Dictated: 2326 Date Transcribed: 03/10/162326 Heavy Forger: Signed 10-Mar-2016 Discharge Instruction Result: Comments: See Note; NOTES: [facility] Medical Records Department [address] [facility] [place] [address] Discharge Instruction 03/10/162006 MR#: [id number] Acct: [id number] Name: MAR MAHARAJ Rep #: [id number] : 1945 70 From: Darien Warren MD [...] problems, contact your doctor. Call [facility] ([phone]) or report to the closest Emergency Room. Call 911 if necessary. 03/10/162007 <Electronically signed by Darien Warren MD> Date Darien Warren MD Cosigner Signature (If Indicated): Date CC: Davian Mccray 10-Mar-2016 Hip 2-3 Views with Pelvis Result: Comments: See Note; NOTES: [facility] Imaging Services [address] [place] [address] Verdana 4d Hip 2-3 Views with Pelvis MR#: [id number] Acct: [id number] Name: MAR DEAN Rep #: [id number] : 1945 F 70 From: Robles Mejia PCP: Davian Mccray Status: REG ER Study: Hip 2-3 Views with Pelvis Date of Exam: 03/10/16 Exam# [id number] Ordering Dr: Carlos Eduardo Warren MD STUDY: [...] DO at 19:47 EDT , Service support [phone], RAD/Hip 2-3 Views with Pelvis IMPRESSION: Hip joint space narrowing. Stable degenerative changes left hip. No fracture or dislocation. 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 ABNORMAL 25-Jan-2016 Pelvis 1 or 2 Views Result: Comments: See Note; NOTES: [facility] Imaging Services [address] [place] [address] Verdana 4d Pelvis 1 or 2 Views MR#: [id number] Acct: [id number] Name: CAROL ANNRadha CHAMBERLAIN Toni Rep #: [id number] : 1945 F 70 From: Doroteo Salgado MD PCP: Davian Mccray Status: REG CLI Study: Pelvis 1 or 2 Views Date of Exam: 01/25/16 Exam# [id number] Ordering Dr: Yadira Nina dma, MD STUDY: [...] at 16 :50 EDT , Service support [phone], RAD/Pelvis 1 or 2 Views IMPRESSION: Focus [...] at 16:50 EDT , Service suppor t [phone], CC: Davian Mccray; Gemma Nina MD Heavy Forger: Signed 19-Nov-2015 Vert Fx Asess/Lat Bone Den(H) Result: Comments: See Note; NOTES: [facility] Imaging Services [address] [place] [address] Verdana 4d Vert Fx Asess/Lat Bone Den(H) MR#: [id number] Acct: [id number] Nam e: MAR MAHARAJ Rep #: [id number] : 1945 F 70 From: Florian Valenzuela MD PCP: Davian Mccray Status: REG CLI Study: Vert Fx Asess/Lat Bone Den(H) Date of Exam: 11/19/15 Exam# [id number] Ord ering Dr: Davian Mccray STUDY: DUAL [...] Florian Valenzuela MD at 8:52 EDT Tel [phone], Service support [phone], CC: Davian Mccray Heavy Forger: Signed 19-Nov-2015 Bilat Scrn Digital AND CAD Result: Comments: See Note; NOTES: [facility] Imaging Services [address] [place], [place] [address] [address] Verdana 4d Bilat Scrn Digital AND CAD MR#: [id number] Acct: [id number] Name: MAR MAHARAJ Rep #: [id number] : 1945 F 70 From: Florian Valenzuela MD PCP: Davian Mccray Status: REG CLI Study: Bilat Scrn Digital AND CAD Date of Exam: 11/19/15 Exam# [id number] Ordering Dr: Davian Mccray MAMMOGRAPHY - BILATERAL [...] Florian Valenzuela MD at 10:06 EDT Tel [phone], Service support [phone], CC: Davian Mccray Heavy Forger: Signed 19-Nov-2015 Bilat Scrn Digital AND CAD Result: Comments: See Note; NOTES: [facility] Imaging Services [address] [place] [address] Verdana 4d Bilat Scrn Digital AND CAD MR#: [id number] Acct: [id number] Name: MAR MAHARAJ Rep #: [id number] : 1945 F 70 From: Florian Valenzuela MD PCP: Davian Mccray Status: REG CLI Study: Bilat Scrn Digital AND CAD Date of Exam: 11/19/15 Exam# [id number] Ordering Dr: Davian Mccray MAMMOGRAPHY - BILATERAL [...] Florian Valenzuela MD at 10:06 EDT Tel [phone], Service support [phone], CC: Davian Mccray Heavy Forger: Signed 19-Nov-2015 Dexa Bone Density Study (HP) Result: Comments: See Note; NOTES: [facility] Imaging Services [address] [place] [address] Verdana 4d Dexa Bone Density Study (HP) MR#: [id number] Acct: [id number] Name : MAR MAHARAJ Rep #: [id number] : 1945 F 70 From: Florian Valenzuela MD PCP: Davian Mccray Status: [facility] Study: Dexa Bone Density Study (HP) Date of Exam: 11/19/15 Exam# [id number] Order ing Dr: Davian Mccray STUDY: DUAL [...] Florian Valenzuela MD at 12:53 EDT Tel [phone], Service support [phone], F ax [phone] CC: Davian Mccray Heavy Forger: Signed 19-Nov-2015 Thyroid Result: Comments: See Note; NOTES: [facility] Imaging Services [address] [place] [address] Verdana 4d Thyroid MR#: [id number] Acct: [id number] Name: MAR MAHARAJ Rep #: [id number] : 1945 F 70 From: Stephen Walton DO PCP: Davian Mccray Status: REG CLI Study: Thyroid Date of Exam: 11/19/15 Exam# [id number] Ordering Dr: Davian Mccray STUDY: THYROID ULTRASOUN [...] Stephen Walton DO at 16:48 EDT Tel [phone], Service support [phone], CC: Davian Mccray Heavy Forger: Signed 17-Dec-2014 Cerv Spine 2 or 3 Views Result: Comments: See Note; NOTES: [facility] Imaging Services [address] [place] [address] Radiology Report MR#: [id number] Acct: [id number] Name: MAR MAHARAJ Rep #: [id number] : 1945 F 69 From: Vitaly Turner MD PCP: Libby Mai DO Status: REG CLI Study: Cerv Spine 2 or 3 Views Date of Exam: 12/17/14 Exam# [id number] Ordering Dr: Jose Alejandro Yepez STUDY: X-RAY [...] at 11:32 EDT Tel , Service support [phone], 0045 RAD/Cerv Spine 2 or 3 Views IMPRESSION: Status post anterior fusion from C3-C6, with 3 mm extrusion of the C6 screw. Loss of the normal lordosis. No signs of instability. Electronically Signed: Vitaly Turner MD, FACR at 11:32 EDT , Service support [phone], CC: JOSE ALEJANDRO Mai DO Heavy Forger: Signed 17-Dec-2014 Spine Cervical (Routine) Result: Comments: See Note; NOTES: [facility] Imaging Services [address] [place] [address] MRI Report MR#: [id number] Acct: [id number] Name: MAR MAHARAJ Rep #: [id number] : 1945 F 69 From: Vitaly Turner MD PCP: Libby aMi DO Status: REG CLI Study: Spine Cervical (Routine) Date of Exam: 12/17/14 Exam# [id number] Ordering Dr: Jose Alejandro Yepez STUDY: MRI [...] FACR at 11:15 EDT , Service support [phone], CC: JOSE ALEJANDRO YEPEZ; Libby Mai DO Heavy Forger: Signed 15-Dec-2014 Thyroid Result: Comments: See Note; NOTES: [facility] Imaging Services [address] [place] [address] Ultrasound Report MR#: [id number] Acct: [id number] Name: MAR MAHARAJ Rep #: [id number] : 1945 F 69 From: Stephen Walton DO PCP: Libby Mai DO Status: REG CLI Study: Thyroid Date of Exam: 12/15/14 Exam# [id number] Ordering Dr: Lisa Garcia MD STUDY: THYROID [...] Stephen Walton DO at 13:38 EDT Tel [phone], Service support [phone], CC: Libby Mai DO; Lisa Garcia MD Heavy Forger: Signed 17-Nov-2014 Valeri Thrasher Digital AND CAD Result: Comments: See Note; NOTES: [facility] Imaging Services [address] [place] [address] Breast Imaging Report MR#: [id number] Acct: [id number] Name: MAR MAHARAJ Rep #: [id number] : 1945 F 69 From: Alfa Bettencourt MD PCP: Libby Mai DO Status: REG CLI Study: Valeri Thrasher Digital AND CAD Date of Exam: 11/17/14 Exam# [id number] Ordering Dr: Libby Mai DO MAMMOGR APHY [...] at 12:06 EDT Tel , Service support [phone], CC: Libby Mai DO Heavy Forger: Signed 17-Nov-2014 Chest without Contrast Result: Comments: See Note; NOTES: [facility] Imaging Services [address] [place] [address] CAT Scan Report MR#: [id number] Acct: [id number] Name: MAR MAHARAJ Rep #: [id number] : 1945 F 69 From: Alfa Bettencourt MD PCP: Libby Mai DO Status: REG CLI Study: Chest without Contrast Date of Exam: 11/17/14 Exam# [id number] Ordering Dr: Libby Mai DO STUDY: CT [...] at 10:21 EDT Tel , Service support [phone], CC: Libby Mai DO Heavy Forger: Signed 23-Sep-2014 Brain/Head without Contrast Result: Comments: See Note; NOTES: [facility] Imaging Services [address] [place] [address] CAT Scan Report MR#: [id number] Acct: [id number] Name: MAR MAHARAJ Rep #: [id number] : 1945 F 69 From: Parminder Rashid MD PCP: Libby Mai DO Status: REG ER Study: Brain/Head without Contrast Date of Exam: 09/23/14 Exam# [id number] Ordering Dr: Rachel Avina MD STUDY: CT [...] MD at 21:19 EST , Service support [phone], CC: Libby Mai DO; Rachel Avina MD Heavy Forger: Signed 23-Sep-2014 Spine Cervical without Contras Result: Comments: See Note; NOTES: [facility] Imaging Services [address] [place] [address] CAT Scan Report MR#: [id number] Acct: [id number] Name: MAR MAHARAJ Rep #: [id number] : 1945 F 69 From: Parminder Rashid MD PCP: Libby Mai DO Status: REG ER Study: Spine Cervical without Contras Date of Exam: 09/23/14 Exam# [id number] Ordering Dr: Rachel Avina MD LORENA DY: [...] MD at 21:25 EST , Service support [phone], CC: Libby Mai DO; Rachel Avina MD Heavy Forger: Signed 21-Aug-2014 Discharge Instruction Result: Comments: See Note; NOTES: [facility] Medical Records Department [address] [place] [address] Instructions for Home/Discharge Instructions 08/21/14 1712 MR#: [id number] [facility] t: [id number] Name: MAR MAHARAJ Rep #: [id number] : 1945 69 From: Galo Antonio PA-C [...] AM PHYSICAL THERAPY APPT WITH COREY @ [facility] 08/25/14 @ [...] Please Follow Up With: Glenn Ro 08/21/14 9336 <Electronically signed by Galo Antonio PA-C> Date ___ Galo Antonio PA-C CC: Libby Mai DO 19-Aug-2014 Knee 1 or 2 Views Result: Comments: See Note; NOTES: [facility] Imaging Services [address] [place] [address] Radiology Report MR#: [id number] Acct: [id number] Name: MAR MAHARAJ Rep #: [id number] : 1945 F 69 From: Bakari Kenny MD PCP: Libby Mai DO Status: ADM IN Study: Knee 1 or 2 Views Date of Exam: 08/19/14 Exam# [id number] Ordering Dr: Darien Avina MD STUDY: X-RAY [...] MD at 16:29 EST , Service support [phone], CC: Libby Mai DO; Darien Avina MD Heavy Forger: Signed 12-Aug-2014 History and Physical Exam Result: Comments: See Note; NOTES: [facility] Medical Records Department [address] [place] [address] History and Physical 08/11/14 1334 MR#: [id number] Acct: [id number] Name: MAR MAHARAJ Rep #: [id number] : 1945 69 From: Glenn Ro PCP: Libby Mai DO Status: PRE IN Location: [facility] DATE OF SERVICE: 08/19/2014 PRIMARY CARE [...] of right knee dated May 30, 2014, [facility], weightbearing, AP, tunnel, [...] above- stated procedure and [facility]. YADIRA Narvaez T: NTS JOB: [id number] 08/12/14 0740 <Electronically signed by Glenn Ro > Date: Time: Glenn Ro CC: Glenn Mai DO Date Dictated: 08/11/141333 Date Transcribed: 08/11/141333 Heavy Forger: Signed ____ I have re-examined the patient. There a re no clinical changes since date of exam. ____ See Progress Notes for Changes ____ Dictated on Admission Date: Time: Signature: 23-May-2014 Hip min 2 Views Result: Comments: See Note; NOTES: [facility] Imaging Services [address] [facility] [place] [address] Radiology Report MR#: [id number] Acct: [id number] Name: MAR MAHARAJ Rep #: [id number] : 1945 F 68 From: Florian Valenzuela MD PCP: Libby Mai DO Status: REG CLI Study: Hip min 2 Views Date of Exam: 05/23/14 Exam# [id number] Ordering Dr: Libby Mai DO STUDY: X-RAY [...] Florian Valenzuela MD at 9:41 EDT Tel [phone], Service support [phone], CC: Libby Mai DO Heavy Forger: Signed 23-May-2014 Knee 4 or More Views Result: Comments: See Note; NOTES: [facility] Imaging Services [address] [place] [address] Radiology Report MR#: [id number] Acct: [id number] Name: MAR MAHARAJ Rep #: [id number] : 1945 F 68 From: Florian Valenzuela MD PCP: Libby Mai DO Status: REG CLI Study: Knee 4 or More Views Date of Exam: 05/23/14 Exam# [id number] Ordering Dr: Libby Mai DO STUDY: X- [...] Florian Valenzuela MD at 9:42 EDT Tel [phone], Service support [phone], CC: Libby Mai DO Heavy Forger: Signed 02-May-2014 Chest without Contrast Result: Comments: See Note; NOTES: [facility] Imaging Services [address] [place] [address] CAT Scan Report MR#: [id number] Acct: [id number] Name: MAR MAHARAJ Rep #: [id number] : 1945 F 68 From: Cristhian Spears MD PCP: Libby Mai DO Status: REG CLI Study: Chest without Contrast Date of Exam: 05/02/14 Exam# [id number] Ordering Dr: Libby Mai DO STUDY: CT [...] at 15:32 EDT Tel , Service support [phone], CC: Libby Mai DO Heavy Forger: Signed 02-May-2014 Thyroid Result: Comments: See Note; NOTES: [facility] Imaging Services [address] [place] [address] Ultrasound Report MR#: [id number] Acct: [id number] Name: MAR MAHARAJ Rep #: [id number] : 1945 F 68 From: Stephen Walton DO PCP: Libby Mai DO Status: REG CLI Study: Thyroid Date of Exam: 05/02/14 Exam# [id number] Ordering Dr: Libby Mai DO STUDY: THYROID [...] Stephen Walton DO at 19:17 EDT Tel [phone], Service support [phone], CC: Libby Mai DO Heavy Forger: Signed 27-Feb-2014 L/S Spine Min 4 Views Result: Comments: See Note; NOTES: [facility] Imaging Services [address] [place] [address] Radiology Report MR#: [id number] Acct: [id number] Name: MAR MAHARAJ Rep #: [id number] : 1945 F 68 From: Florian Valenzuela MD PCP: Libby Mai DO Status: REG CLI Study: L/S Spine Min 4 Views Date of Exam: 02/27/14 Exam# [id number] Ordering Dr: Jose Alejandro Yepez STUDY: X-R [...] Florian Valenzuela MD at 10:31 EDT Tel [phone], Service support [phone], RAD/L/S Spine Min 4 Views IMP RESSION: The patient is status post laminectomy and fusion at the L3-L4 and L4- L5 levels with bone graft and bone stimulator. Grade 2 anterolisthesis of L4 on L5. Electronically Signed: Florian khan MD at 10:31 EDT Tel [phone], Service support [phone], CC: JOSE ALEJANDRO YEPEZ; Libby Mai DO Heavy Forger: Signed 27-Feb-2014 Spine Lumbar (Routine) Result: Comments: See Note; NOTES: [facility] Imaging Services [address] [place] [address] MRI Report MR#: [id number] Acct: [id number] Name: MAR MAHARAJ Rep #: [id number] : 1945 F 68 From: Angus Arreola PCP: Libby Mai DO Status: REG CLI Study: Spine Lumbar (Routine) Date of Exam: 02/27/14 Exam# [id number] Ordering Dr: Jose Alejandro Yepez STUDY: MRI [...] MD at 7:48 EDT , Service support [phone], CC: JOSE ALEJANDRO YEPEZ; Libby Mai DO Heavy Forger: Signed 10-Feb-2014 Cerv Spine 2 or 3 Views Result: Comments: See Note; NOTES: [facility] Imaging Services [address] [place] [address] Radiology Report MR#: [id number] Acct: [id number] Name: MAR MAHARAJ Rep #: [id number] : 1945 F 68 From: Florian Valenzuela MD PCP: Libby Mai DO Status: REG CLI Study: Cerv Spine 2 or 3 Views Date of Exam: 02/10/14 Exam# [id number] Ordering Dr: Jose Alejandro Yepez STUDY: X [...] Florian Valenzuela MD at 15:54 EDT Tel [phone], Service support [phone], RAD/Cerv Spine 2 or 3 Views IMPRESSION: Status post anterior fu tamika at the C3-C4, C4-C5 and C5-C6 levels. No abnormal movement occurs between the vertebral segments. Electronically Signed: Florian Valenzuela MD at 15:54 EDT Tel [phone], Service support [phone], CC: JOSE ALEJANDRO YEPEZ; Libby Mai DO Heavy Forger: Signed 13-Jan-2014 Echocardiogram Complete Result: Comments: See Note; NOTES: [facility] Cardiovascular Services [address] [place] [address] Echo Complete 01/10/14 1155 MR#: [id number] Acct: [id number] Name: LESLY MAHARAJ Rep #: [id number] : 1945 68 From: Sregio Lawler MD Attending Dr: Nuris ARAGON,Sergio Status: REG CLI Ordering Dr: Sergio Lawler MD Date: 01/10/14 Location: [facility] Sex: F C Admitted: [facility] This was a 2D Doppler, Color [...] Dictated: 01/10/14 1155 Date Transcribed: 01/13/14 1103 Heavy Forger: Signed 20-Jun-2013 Bilat Scrn Digital & CAD Result: Comments: See Note; NOTES: [facility] Imaging Services [address] [place] [address] Breast Imaging Report MR#: [id number] Acct: [id number] Name: MAR MAHARAJ Rep #: [id number] : 1945 F 67 From: Florian Valenzuela MD PCP: Status: REG CLI Exam# [id number] Ordering Dr: Libby Mai DO MAMMOGRAPHY - [...] 20, 2013 at 9: 52:55 AM EDT [phone] Electronically Signed GP/GP If you are the referring physician and would like to consult with the radiologist who provided this interpretation, please contact Florian Valenzuela M.D. at [phone]. If this radiologist is unavailable, you will be directed to another radiologist to assist. If you are a patient with a question regarding this report, please contact your referring physician directly. Professional Interpretation Provided By: Porch, Phone , These documents contain legally protected [...] of these documents. CC: Harman Mai DO Heavy Forger: Signed 20-Jun-2013 Dexa Bone Density Study (HP) Result: Comments: See Note; NOTES: [facility] Imaging Services [address] [place] [address] Bone Density Report MR#: [id number] Acct: [id number] Name: MAR MAHARAJ Rep #: [id number] : 1945 F 67 From: Florian Valenzuela MD PCP: Status: REG CLI Study: Dexa Bone Density Study (HP) Date of Exam: 06/20/13 Exam# [id number] Ordering Dr: Libby Mai DO STUDY: DUAL [...] angel luis mbar spine. On the lateral aircraft maintenance engineer view, there is evidence of loss of [...] June 20, 2013 at 10:14:39 AM EDT [phone] Electronically Signed GP/GP If you are the referring physician and would like to consult with the radiologist who provided this interpretation, please contact Florian Valenzuela M.D. at [phone]. If this radiologist is unavailable, you will be directed to another radiologist to assist. If you are a patient with a question regarding this report, plea se contact your referring physician directly. Professional Interpretation Provided By: Porch, Phone , These documents contain legally protected [...] of these documents. CC: Libby Mai DO Heavy Forger: Signed 06-Jun-2013 Chest without Contrast Result: Comments: See Note; NOTES: [facility] Imaging Services [address] [place] [address] CAT Scan Report MR#: [id number] Acct: [id number] Name: MAR MAHARAJ Rep #: [id number] : 1945 F 67 From: Florian Valenzuela MD PCP: Status: REG CLI Study: Chest without Contrast Date of Exam: 06/06/13 Exam# [id number] Ordering Dr: Libby Mai DO STUDY: CT [...] June 06, 2013 at 10:07:38 AM EDT [phone] Electronically Signed GP/GP If you are the referring physician and would like to consult with the radiologist who provided this interpretation, please contact Florian Valenzuela M.D. at [phone]. If this radiologist is unavailable, you will be directed to another radiologist to assist. If you are a patient with a question regarding this report, please contact your referring physician directly. Professional Interpretation Provided By: Porch, Phone , These documents contain legally protected [...] of these documents. CC: Libby Mai DO Heavy Forger: Signed 06-Jun-2013 Chest without Contrast Result: Comments: See Note; NOTES: [facility] Imaging Services [address] [place] [address] CAT Scan Report MR#: [id number] Acct: [id number] Name: MAR MAHARAJ Rep #: [id number] : 1945 F 67 From: Florian Valenzuela MD PCP: Status: REG CLI Study: Chest without Contrast Date of Exam: 06/06/13 Exam# [id number] Ordering Dr: Libby Mai DO STUDY: CT [...] June 06, 2013 at 10:07:38 AM EDT [phone] Electronically Signed GP/GP If you are the referring physician and would like to consult with the radiologist who provided this interpretation, please contact Florian Valenzuela M.D. at [phone]. If this radiologist is unavailable, you will [...] of these documents. 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[employer] Status: Active Smoking Status Name Dates [...] 0.00 cm Results Date Description Value Details 26-Gkx-326556:34 CBC W/Diff, Automated Comments: [facility] [address] [place], [place], [id number] Absolute Lymph 1.24 {X10_3/ul} (Normal) Range: 0.83-4.51 [...] 4.2-5.4 WBC 6.6 K/mm3 (Normal) Range: 4.4-11.0 46-Elt-192465:34 Comprehensive Metabolic Profil Comments: [facility] [address] [place], [place], [address] GAP 11 (Normal) Range: 5-15 CO2 28.0 [...] A.D.A. criteria.Please note revised GLUCOSE reference range ltaaplfoe52/02/2018. :32 HgA1C , Office (55397) HgA1C , Office 6.3 % (Normal) Range: 4.6 - 7.1 :32 Blood Glucose , Office (03677) Blood Glucose , Office 133 (Normal) 74-Nrm-280092:16 Miscellaneous Lab Procedure Comments: Comments: [id number]; URINE TOX; [facility] Ordered: [id number]; URINE TOX; RUN LOWEST TEST IN [facility] [address] [place], [place], [address] [facility] [place]: [id number] 6+OXYCODONE-BUND (ng/mL)DRUG RESULT SCREEN CUTOFF____ Amphetamines,Urine Negat LAB (Normal) ananth ng/mL 1000Amphetamine test includes Amphetamine and Methamphetamine.Barbiturates Negative ng/mL 200Benzodiazepines Negative ng/mL 200Cannabinoid TEST Negative ng/mL 20Cocaine (Metab) Negative ng/mL 300Opiates Negative ng/mL 300 Opiates test includes Codeine, Morphine, Hydromorphone, [place] codone.Oxycodone/Oxymorphone,Urine Negative ng/mL 300 Test includes Oxydodone and Oxymorphone. TESTING PERFORMED AT [facility]. ORIGINAL REPORT ON FILE IN LAB CONTAINS ADDITIONAL TEST SITE INFORMATION. 03-Xsf-247871:16 Urine Drug Screen (VISTA) Comments: Comments: [id number]; URINE TOX; RUN LOWEST TEST IN [facility] Taken or [facility]pected? [facility] [address] [place], [place], [address] THC NEGATIVE (Normal) PCP NEGATIVE (Normal) OPIATES [...] MUST BE ORDERED SEPARATELY. USE TESTMNEMONIC: [facility] :28 Microscopic Examination Comments: PATIENT WAS FASTINGPERFORMED BY: [facility] Gebvez0950 [facility] [id number] Bacteria Few (Normal) Mucus Threads Present (Normal) Epithelial Cells (non renal) 0-10 {/hpf} (Normal) Range: 0 - 10 RBC 0-2 {/hpf} (Normal) Range: 0 - 2 WBC 0-5 {/hpf} (Normal) Range: 0 - 5 :52 Basic Metabolic Profile (BMP) Comments: [facility] [address] [place], [place], [address] GAP 10 (Normal) Range: 5-15 CO2 27.0 [...] A.D.A. criteria.Please note revised GLUCOSE reference range caogpdnuu49/02/2018. 07-May-20188:52 CBC W/Diff, Automated Comments: [facility] [address] [place], [address] Absolute Lymph 1.75 {X10_3/ul} (Normal) Range: 0.83-4.51 [...] Range: 4.4-11.0 :05 CBC W/Diff, Automated Comments: [facility] [address] [place], [place], [address] Absolute Lymph 1.82 {X10_3/ul} (Normal) Range: 0.83-4.51 [...] Range: 4.4-11.0 :05 Comprehensive Metabolic Profil Comments: [facility] [address] [place], [address] GAP 12 (Normal) Range: 5-15 CO2 28.0 [...] A.D.A. criteria.Please note revised GLUCOSE reference range ixdrgyxae18/02/2018. 88-Nec-54031:28 CALCIFEDIOL (46476) Comments: PATIENT WAS FASTINGPERFORMED BY: [facility]6370 [facility] [id number] Vitamin D, 25-Hydroxy 45.7 ng/mL (Normal) Range: 30.0-100.0 Comments: Vitamin D deficiency has been defined by the [place] ofMedicine and an Endocrine Society practice guideline as alevel of serum 25-OH vitamin D less than 20 ng/mL (1,2).The Endocrine Society went on to further define vitamin Dinsufficiency as a level between 21 and 29 ng/mL (2).1. IOM ([place] of Medicine). 2010. Dietary reference intakes for calcium and D. [place]: The National AcademInitMe Press.2. Delma MF, Mckenna ABDALLA, Dane MACKENZIE, et al. Evaluation, treatment, and prevention of vitamin D deficiency: an Endocrine Society clinical practice guideline. JCEM. 2010; 96(7):1911-30. :28 VITAMIN B-12 (CYANOCOBALAMIN) Comments: PATIENT WAS FASTINGPERFORMED BY: [employer] [facility] [id number] ([address]) Vitamin B12 507 pg/mL (Normal) Range: 232-1245 :28 TSH (83847) Comments: PATIENT WAS FASTINGPERFORMED BY: [employer] Ctriuw0692 [facility] [place] [id number] TSH 0.816 {uIU/mL} (Normal) Range: 0.450-4.500 :28 URINALYSIS, W/ MICRO (45639) Comments: PATIENT WAS FASTINGPERFORMED BY: [employer] LabRiiid[address] [facility] [facility] [address] [place] [id number] Microscopic Examination See below: (Normal) Comments: Microscopic was indicated and was performed. Nitrite, Urine Negative (Normal) Urobilinogen,Semi-Qn 0.2 mg/dL (Normal) Range: 0.2-1.0 Bilirubin Negative (Normal) Occult Blood Negative (Normal) Ketones Negative (Normal) Glucose Negative (Normal) Protein Negative (Normal) WBC Esterase 1+ (Abnormal) Appearance Clear (Normal) Urine-Color Yellow (Normal) pH 7.0 (Normal) Range: 5.0-7.5 Specific [place] 1.017 (Normal) Range: 1.005-1.030 :28 MICROALBUMIN: CREATININE RATIO Comments: PATIENT WAS FASTINGPERFORMED BY: [facility]6370 [facility] [id number] (70231) AND (05138) Alb/Creat Ratio 9.9 {mg/g_creat} (Normal) Range: 0.0-30.0 Albumin, Urine 7.9 ug/mL (Normal) Creatinine, Urine 79.8 mg/dL (Normal) :28 METABOLIC PANEL, COMPREHENSIVE Comments: PATIENT WAS FASTINGPERFORMED BY: [facility]6370 [facility] [id number] (36656) ALT (SGPT) 13 [iU]/L (Normal) Range: 0-32 [...] mg/dL (Abnormal) Range: 65-99 :28 LIPID PANEL (67559) Comments: PATIENT WAS FASTINGPERFORMED BY: [facility] WayneQlnieg0677 [facility] [id number] LDL/HDL Ratio 3.2 {ratio} (Normal) Range: 0.0-3.2 Comments: LDL/HDL Ratio Men Women 1/2 Avg.Risk 1.0 1.5 Av g.Risk 3.6 3.2 2X Avg.Risk 6.2 5.0 3X Avg.Risk 8.0 6.1 LDL Cholesterol Calc 143 mg/dL (Abnormal) Range: 0-99 VLDL Cholesterol Peg 29 mg/dL (Normal) Range: 5-40 HDL Cholesterol 45 mg/dL (Normal) Triglycerides 143 mg/dL (Normal) Range: 0-149 Cholesterol, Total 217 mg/dL (Abnormal) Range: 100-199 95-Qin-75030:28 CBC W/AUTO DIFF WBC (99937) Comments: PATIENT WAS FASTINGPERFORMED BY: [employer] Vxlyje6360 [facility] [id number] Immature Grans (Abs) 0.0 {x10E3/uL} (Normal) Range: [...] (Normal) Range: 3.4-10.8 :43 HgA1C , Office (83517) HgA1C , Office 6.3 % (Normal) Range: 4.6 - 7.1 :43 Blood Glucose , Office (13860) Blood Glucose , Office 105 (Normal) :55 MAGNESIUM (18194) Comments: PATIENT NOT FASTINGPERFORMED BY: [facility]CoKindred Hospital at WayneEbedjz2598 [facility] [id number] Magnesium 1.6 mg/dL (Normal) Range: 1.6-2.3 :55 POTASSIUM SERUM (52811) Comments: PATIENT NOT FASTINGPERFORMED BY: [facility] Eturgs2675 [facility] [id number]; ov 02/19 Potassium 4.8 mmol/L (Normal) Range: 3.5-5.2 :59 CBC W/Diff, Automated Comments: [facility] [address] [place], [address] Absolute Lymph 2.55 {X10_3/ul} (Normal) Range: 0.83-4.51 [...] Range: 4.4-11.0 07-Dec-20178:59 Comprehensive Metabolic Profil Comments: [facility] [address] [place], [address] GAP 8 (Normal) Range: 5-15 CO2 32.0 mmol/L (Normal) Range: 21.0-32.0 CL 100 mmol/L (Normal) Range: 98-107 K 3.4 mmol/L (Abnormal) Range: 3.5-5.1 NA 140 mmol/L (Normal) Range: 136-145 T BILI 0.40 mg/dL (Normal) Range: 0.20-1.00 ALT 21 U/L (Normal) Range: 13-56 Comments: Please note revised ALT reference range tuyckllza51/28/2018. ALK P 76 U/L (Normal) Range: 45-117 [...] A.D.A. criteria.Please note revised GLUCOSE reference range odyosuxmw63/02/2018. 2-Qwh-625671:40 Microscopic Examination Comments: PATIENT WAS FASTINGPERFORMED BY: To[address]to[address] [id number] BY: [employer]70 Doyle RoadDublin [place] [id number] Bacteria Few (Normal) Epithelial Cells (non renal) 0-10 {/hpf} (Normal) Range: 0 - 10 RBC None seen {/hpf} (Normal) Range: 0 - 2 WBC 0-5 {/hpf} (Normal) Range: 0 - 5 5-Ibc-643499:40 VITAMIN B-12 (CYANOCOBALAMIN) Comments: PATIENT WAS FASTINGPERFORMED BY: [employer] [address] [id number] BY: [employer]70 [place] [id number] (255[address]) Vitamin B12 470 pg/mL (Normal) Range: 232-1245 1-Xzk-214677:40 CALCIFIDIOL (49500) VIT D Comments: PATIENT WAS FASTINGPERFORMED BY: To[address]to[address] [id number] BY: [employer] [place] [id number] 25 Vitamin D, 25-Hydroxy 36.1 ng/mL (Normal) Range: 30.0-100.0 Comments: Vitamin D deficiency has been defined by the [place] ofMedicine and an Endocrine Society practice guideline as alevel of serum 25-OH vitamin D less than 20 ng/mL (1,2).The Endocrine Society went on to further define vitamin Dinsufficiency as a level between 21 and 29 ng/mL (2).1. IOM ([place] of Medicine). 2010. Dietary reference intakes for calcium and D. [place]: The National Academies Press.2. Delma MF, Mckenna ABDALLA, Dane MACKENZIE, et al. Evaluation, treatment, and prevention of vitamin D deficiency: an Endocrine Society clinical practice guideline. JCEM. 2010; 96(7):1911-30. 5-Sai-397329:40 LIPOPROTEIN, BLD, BY NMR Comments: PATIENT WAS FASTINGPERFORMED BY: BN [facility] Yxqznvlpqi3236 [facility] [id number] BY: CB [facility] Tkgmlr6362 [facility] [id number] (68251) LP-IR Score 80 (Abnormal) Comments: INSULIN RESISTANCE MARKER <--Insulin Sensitive Insulin Resistant--> Percentile in Reference PopulationInsulin Resistance ScoreLP-IR Score Low 25th 50th 75th High <27 27 45 63 >63LP-IR Score is inaccurate if patient is non-fasting. .The LP-IR score is a laboratory developed i [facility] that has beenassociated with insulin resistance [...] were developed and their performance characteristicsdetermined by [employer]. These assays have not been cleared by [...] 1600 - 2000 Very High > 2000 9-Tjf-185957:40 TSH (99351) Comments: PATIENT WAS FASTINGPERFORMED BY: [employer] [place] [address] [id number] BY: [employer]6370 [facility] [id number] TSH 1.780 {uIU/mL} (Normal) Range: 0.450-4.500 4-Nrx-193347:40 URINALYSIS, W/ MICRO Comments: PATIENT WAS FASTINGPERFORMED BY: To[address]to[address] [id number] BY: [employer]70 [facility] [id number] (67145) Microscopic Examination See below: (Normal) Comments: Microscopic was indicated and was performed. Microscopic Examination MICRON (Normal) Comments: Microscopic follows if indicated. Nitrite, Urine Negative (Normal) Urobilinogen,Semi-Qn 0.2 mg/dL (Normal) Range: 0.2-1.0 Bilirubin Negative (Normal) Occult Blood Negative (Normal) Ketones Negative (Normal) Glucose Negative (Normal) Protein Negative (Normal) WBC Esterase Negative (Normal) Appearance Clear (Normal) Urine-Color Yellow (Normal) pH 7.5 (Normal) Range: 5.0-7.5 Specific [place] 1.016 (Normal) Range: 1.005-1.030 8-Uuk-013577:40 MICROALBUMIN: CREATININE Comments: PATIENT WAS FASTINGPERFORMED BY: [employer] [address] [id number] BY: FlyCastKindred Hospital at WayneTuzixm5974 [facility] [id number] RATIO (44464) AND (09823) Alb/Creat Ratio 8.6 {mg/g_creat} (Normal) Range: 0.0-30.0 Albumin, Urine 4.7 ug/mL (Normal) Creatinine, Urine 54.7 mg/dL (Normal) 9-Ypt-062753:40 METABOLIC PANEL, Comments: PATIENT WAS FASTINGPERFORMED BY: [employer] [address] [id number] BY: [employer]70 [facility] [id number] COMPREHENSIVE (14671) ALT (SGPT) 17 [iU]/L (Normal) Range: 0-32 [...] 8-27 Glucose 99 mg/dL (Normal) Range: 65-99 7-Xde-660477:40 CBC W/AUTO DIFF WBC Comments: PATIENT WAS FASTINGPERFORMED BY: BN [facility] Laghajubud4001 [facility] [id number] BY: CB [facility] Nejhwm6652 [facility] [id number]; ov tomrrow 12/07 (60873) Immature Grans (Abs) 0.0 {x10E3/uL} (Normal) Range: [...] (Normal) Range: 3.4-10.8 :26 HgA1C , Office (28285) HgA1C , Office 6.7 % (Normal) Range: 4.6 - 7.1 :26 Blood Glucose , Office (76118) Blood Glucose , Office 141 (Normal) :10 CBC W/Diff, Automated Comments: [facility] [address] [place], [place], [address] Absolute Lymph 2.70 {X10_3/ul} (Normal) Range: 0.83-4.51 [...] 4.2-5.4 WBC 7.1 K/mm3 (Normal) Range: 4.4-11.0 0-Nxr-975298:10 Comprehensive Metabolic Profil Comments: [facility] [address] [place], [address] GAP 10 (Normal) Range: 5-15 CO2 28.0 mmol/L (Normal) Range: 21.0-32.0 CL 100 mmol/L (Normal) Range: 98-107 K 3.8 mmol/L (Normal) Range: 3.5-5.1 NA 138 mmol/L (Normal) Range: 136-145 T BILI 0.40 mg/dL (Normal) Range: 0.20-1.00 ALT 16 U/L (Normal) Range: 13-56 Comments: Please note revised ALT reference range qbgbegpir59/28/2018. ALK P 81 U/L (Normal) Range: 45-117 [...] 126 mg/dLsuggests DIABETES MELLITUS per A.D.A. criteria. 6-Ktb-928656:10 CRP Comments: [facility] [address] [place], [place], [address] C-REACTIVE PROT 4.26 mg/L (Abnormal) Range: 0.0-3.0 Comments: C-Reactive Protein (CRP) provides useful information for thediagnosis, therapy and monitoring of inflammatory processesand associated diseases. For the evaluation of Relative Riskfor Cardiovascular Dise ase, a High Sensitivity CRP (HSCRP)should be ordered. :10 Erythrocyte Sed Rate Comments: [facility] [address] [place], [place], [address] SED RATE 7 mm/h (Normal) Range: 0-30 :49 Rapid Flu (79738 x 2) Influenza A Ag Positive (Normal) Comments: A, no flu shot 7-Lsa-147080:31 Rapid Strep Test, Office (63536) Rapid Strep Test, Office Negative (Normal) 09-Aug-20173:51 THROAT CULTURE (84927) Comments: PATIENT NOT FASTINGPERFORMED BY: [employer]70 [facility] [id number] Information: SRC:TH Result 1 RRF (Normal) Comments: Routine respiratory vicente Upper Respiratory Final report Culture (Normal) Lipase, Serum 11 U/L (Abnormal) Comments: PATIENT NOT FASTINGPERFORMED BY: [employer] Zwhmbs8326 [facility] [id number] :30 Range: 14-85 Written Authorization WAR (Normal) Comments: PATIENT NOT FASTINGPERFORMED BY: [employer] Gpspoj8118 [facility] [id number] :30 Comments: Written Authorization Received.Authorization received from original requistion [id number] by Ann Hartley :30 METABOLIC PANEL, COMPREHENSIVE Comments: stat; PATIENT NOT FASTINGPERFORMED BY: [employer] Tadgld6328 [facility] [id number] (92740) ALT (SGPT) 5 [iU]/L (Normal) Range: 0-32 [...] Glucose, Serum 99 mg/dL (Normal) Range: 65-99 6-Kvo-317219:30 CBC W/AUTO DIFF WBC (85789) Comments: stat; PATIENT NOT FASTINGPERFORMED BY: [facility]CoKind[facility] at WayneQimzla6751 [facility] [id number] Immature Grans (Abs) 0.0 {x10E3/uL} (Normal) Range: [...] 3.77-5.28 WBC 7.3 {x10E3/uL} (Normal) Range: 3.4-10.8 1-Szt-014468:31 Rapid Flu (65328 x 2) Influenza A Ag Negative (Normal) 87-Dtw-440004:28 HgA1C , Office (75569) HgA1C , Office 6.3 % (Normal) Range: 4.6 - 7.1 60-Ghy-584674:28 Blood Glucose , Office (20212) Blood Glucose , Office 133 (Normal) 21-Vmv-682822:27 VITAMIN B-12 (CYANOCOBALAMIN) Comments: PATIENT NOT FASTINGPERFORMED BY: [employer] [facility] [id number] (39489) Vitamin B12 258 pg/mL (Normal) Range: 211-946 01-Abb-006134:27 MAGNESIUM (29354) Comments: PATIENT NOT FASTINGPERFORMED BY: [place] [facility] [id number] Magnesium, Serum 1.6 mg/dL (Normal) Range: 1.6-2.3 01-Rax-360796:27 Metabolic Panel, Basic Comments: PATIENT NOT FASTINGPERFORMED BY: [place] [facility] [id number] (95945) Calcium, Serum 9.3 mg/dL (Normal) Range: 8.7-10.3 [...] Urinalysis, Complete Comments: How was Urine Obtained? PREPARING BOX TENDER TO [facility] [address] [place], [address] MUCUS, URINE 0 SEEN {/hpf} [...] Yellow (Normal) :15 CBC W/Diff, Automated Comments: [facility] [address] [place], [address] Absolute Lymph 1.41 {X10_3/ul} (Normal) Range: 0.83-4.51 [...] 4.2-5.4 WBC 7.7 K/mm3 (Normal) Range: 4.4-11.0 18-Ket-466297:15 Comprehensive Metabolic Profil Comments: [facility] [address] [place], [address] GAP 6 (Normal) Range: 5-15 CO2 33.0 [...] 7-18 GLU 101 mg/dL (Normal) Range: 70-110 95-Wpd-323248:09 CBC W/Diff, Automated Comments: [facility] [address]ft[address] [place], [place], [address] ; another doc Absolute Lymph 1.90 {X10_3/ul} [...] 4.2-5.4 WBC 6.6 K/mm3 (Normal) Range: 4.4-11.0 82-Lol-384315:09 Comprehensive Metabolic Profil Comments: [facility] [address] [place], [address] GAP 10 (Normal) Range: 5-15 CO2 25.0 [...] 126 mg/dLsuggests DIABETES MELLITUS per A.D.A. criteria. 06-Lzu-179396:09 Lipase Comments: [facility] [address] [place], [address] LIPASE 42 U/L (Abnormal) Range: 73-393 1-Hqk-658944:19 Metabolic Panel, Comprehensive Comments: PATIENT NOT FASTINGPERFORMED BY: [facility] Buvnpg1138 [facility] [id number] (70603) ALT (SGPT) 11 [iU]/L (Normal) Range: 0-32 [...] Glucose, Serum 108 mg/dL (Abnormal) Range: 65-99 8-Bky-579522:19 HGB A1C (95048) Comments: PATIENT NOT FASTINGPERFORMED BY: [employer] Wdftla6294 [facility] [id number] Hemoglobin A1c 5.9 % (Abnormal) Range: 4.8-5.6 Comments: . Pre-diabetes: 5.7 - 6.4 Diabetes: >6.4 Glycemic control for adults with diabetes: <7.0 :19 MAGNESIUM (51438) Comments: PATIENT NOT FASTINGPERFORMED BY: [place] Cwkfyo8787 [facility] [id number] Magnesium, Serum 1.7 mg/dL (Normal) Range: 1.6-2.3 4-Yly-198975:19 CBC, Platelets & Auto Diff Comments: PATIENT NOT FASTINGPERFORMED BY: [place] Fjsskj8340 [facility] [id number] ([id number]) Immature Grans (Abs) 0.0 {x10E3/uL} (Normal) Range: [...] 3.77-5.28 WBC 9.5 {x10E3/uL} (Normal) Range: 3.4-10.8 25-Fqo-257031:41 Comprehensive Metabolic Profil Comments: REDRAW. PREVIOUS SPECIMEN REJECTED DUE TOHEMOLYSIS. 04/28/17 1128 Aura Ch.[facility] O[address]lefe7399 [place], [place], [id number] GAP 6 (Normal) Range: 5-15 CO2 25.0 [...] 126 mg/dLsuggests DIABETES MELLITUS per A.D.A. criteria. 24-Zyf-656045:05 Urinalysis, Complete Comments: Order Date: 04/28/17Has pt arrived? YHow was Urine Obtained? [facility] SPECIMENWF[facility] Ubtnpmwsrw3097 [facility] [place], [address] AMORPHOUS 1+ (Normal) MUCUS, URINE [...] CLARITY Sl. Cloudy (Normal) COLOR Yellow (Normal) 23-Ecc-406401:00 CBC W/Diff, Automated Comments: [facility] Vmuduiqgmb9614 [facility] [place], [address] Absolute Lymph 1.58 {X10_3/ul} (Normal) [...] 4.2-5.4 WBC 25.0 K/mm3 (Abnormal) Range: 4.4-11.0 59-Hja-444401:00 Lactic Acid Comments: Yes/No query for Sepsis Lactate Rule [facility] [address] [place], [address] LACTIC ACID 1.6 mmol/L (Normal) Range: 0.4-2.0 17-Bfa-247308:00 Partial Thromboplast Time Comments: [facility] [address] [place], [address] PTT 22.4 s (Abnormal) Range: 24.1-36.2 19-Sqo-121625:00 Prothrombin Time w/INR Comments: [facility] [address] [place], [address] INR 1.0 (Normal) PROTIME 12.8 s (Normal) Range: 11.7-14.9 :50 Miscellaneous Lab Procedure Comments: Comments: [id number]; URINE TOX; RUN LOWEST TEST IN LABCORPTest(s) Ordered: [id number]; URINE TOX; RUN LOWEST TEST IN [facility]COLou[facility] [address]rdl[address] [place], [address] [facility] [place] Comments: [id number] 6+OXYCODONE-BUND (ng/mL)DRUG RESULT SCREEN CUTOFF____ Amphetamines,Urine Negat LAB (Normal) ananth ng/mL 1000Amphetamine test includes Amphetamine and Methamphetamine.Barbiturates Negative ng/mL 200Benzodiazepines Negative ng/mL 200Cannabinoid TEST Negative ng/mL 20Cocaine (Metab) Negative ng/mL 300Opiates Positive ng/mL 300 Opiates test includes Codeine, Morphine, Hydromorphone, [place] codone.Please Note:Confirmation performed by Mass SpectrometryCodeine Negative 300Morphine Positive Morphine Confirm >3000 ng/mL 300Hydromor phone Negative 300Hydrocodone Negative 300Oxycodone/Oxymorphone,Urine Negative ng/mL 300 Test includes Oxydodone and Oxymorphone. TESTING PERFORMED AT [facility]. ORIGINAL REPORT ON FILE IN LAB CONTAINS ADDITIONAL TEST SITE INFORMATION. :50 Urine Drug Screen (VISTA) Comments: Comments: [id number]; URINE TOX; RUN LOWEST TEST IN LABCORPList of Drugs Taken or Suspected? [facility] Dzbtkltmwr6376 [place], [id number] THC NEGATIVE (Normal) PCP NEGATIVE (Normal) OPIATES [...] MUST BE ORDERED SEPARATELY. USE TESTMNEMONIC: [facility] :00 Basic Metabolic Profile (BMP) Comments: 'TROP' Serial specimen #1, #2, #3, or #4: [address] [place] [address] Lov[address]ecrve[address] [place], [address] GAP 10 (Normal) Range: 5-15 CO2 28.0 [...] A.D.A. criteria. :00 CBC W/Diff, Automated Comments: [facility] Tr[address]uvywsw[address] [place], [place], [phone] ; another doc Absolute Lymph 1.20 {X10_3/ul} [...] Serial specimen #1, #2, #3, or #4: [address] [place] [address] [address] [place], [place], [address] LIPASE 82 U/L (Normal) Range: 73-393 26-Xsd-66830:00 Liver Profile Comments: 'TROP' Serial specimen #1, #2, #3, or #4: [address] [place] [address] [address]qf8175 [place], [address] D BILI 0.12 mg/dL (Normal) Range: 0.00-0.30 T BILI 0.50 mg/dL (Normal) Range: 0.20-1.00 ALT 13 U/L (Normal) Range: 12-78 ALK P 58 U/L (Normal) Range: 45-117 AST 6 U/L (Abnormal) Range: 15-37 GLOB 3.4 g/dL (Normal) Range: 2.3-3.5 ALB 3.7 g/dL (Normal) Range: 3.4-5.0 T PROT 7.1 g/dL (Normal) Range: 6.4-8.2 06-Nfc-55695:00 Troponin-I Comments: 'TROP' Serial specimen #1, #2, #3, or #4: [address] [place] [address] [address]ihadl7301 [place], [address] TROPONIN-I < 0.02 ng/mL (Normal) Comments: TROPONIN-I EXPECTED VALUES <0.05 NEGATIVE 0.06 - 0.59 AT RISK OF [place] > OR = 0.60 SUGGEST [place] 62-Pya-876682:01 Renal Profile Comments: Order Date: 01/17/17Order Info: [id number] - RENALOrder Info: [id number] - MGOrder Date: 01/17/17Order Info: [id number] - [facility] Vljeflbsyo7167 [place], [phone] CO2 31.0 mmol/L (Normal) Range: 21.0-32.0 CL [...] 7-18 GLU 102 mg/dL (Normal) Range: 70-110 35-Gfz-131499:01 MAGNESIUM (15472) Comments: Order Date: 01/17/17Order Info: [id number] - RENALOrder Info: [id number] - MGOrder Date: 01/17/17Order Info: [id number] - [facility]WF[facility] [address]qt[address] [place], [phone] MG 1.5 mg/dL (Abnormal) Range: 1.8-2.4 Comments: Moderate Hemolysis, Result may be falsely increased. 40-Wnr-223101:25 CBC W/Diff, Automated Comments: [facility] Wh[address] [place], [address] Absolute Lymph 1.62 {X10_3/ul} (Normal) Range: 0.83-4.51 [...] 4.2-5.4 WBC 10.3 K/mm3 (Normal) Range: 4.4-11.0 93-Ica-994886:25 Comprehensive Metabolic Profil Comments: 'TROP' Serial specimen #1, #2, #3, or #4: 1[facility] [address]oy[address] [place], [address] GAP 10 (Normal) Range: 5-15 CO2 29.0 [...] <126 mg/dLsuggests IMPAIRED HOMEOSTASIS per A.D.A. criteria. 43-Wem-924883:25 Lipase Comments: 'TROP' Serial specimen #1, #2, #3, or #4: [address] [place] [address] [place], [address] LIPASE 52 U/L (Abnormal) Range: 73-393 31-Dyd-904331:25 Partial Thromboplast Time Comments: [facility] [address] [place], [address] PTT 32.0 s (Normal) Range: 24.1-36.2 69-Sie-638834:25 Prothrombin Time w/INR Comments: [facility] [address] [place], [address] INR 1.0 (Normal) PROTIME 13.1 s (Normal) Range: 11.7-14.9 74-Ipk-098272:25 Troponin-I Comments: 'TROP' Serial specimen #1, #2, #3, or #4: [address] [place] [address] [place], [address] TROPONIN-I 0.93 ng/mL (Abnormal) Comments: Critical Result(s) Called INDRA Tyson at: 12:03:5604 by: JAYDA CRAIG TROPONIN-I EXPECTED VALUES <0.05 NEGATIVE 0.06 - 0.59 AT RISK OF [place] > [place] = 0.60 SUGGEST [place] 81-Hgh-308420:40 Urinalysis, Complete Comments: How was Urine Obtained? PREPARING BOX TENDER TO SPECIFYCleveland Clinic Medina Hospital [address]yub[address] [place], [address] MUCUS, URINE 0 SEEN {/hpf} [...] CLARITY Sl. Cloudy (Normal) COLOR Yellow (Normal) 93-Luc-805607:09 CBC W/Diff, Automated Comments: [facility] Towmyjrria[address] [facility] [place], [place], [address] Absolute Lymph 1.33 {X10_3/ul} (Normal) Range: 0.83-4.51 [...] 4.2-5.4 WBC 5.7 K/mm3 (Normal) Range: 4.4-11.0 20-Gzg-190919:09 Comprehensive Metabolic Profil Comments: 'TROP' Serial specimen #1, #2, #3, or #4: [address] [place] [address] [address]vmc[address] [place], [place], [address] GAP 8 (Normal) Range: 5-15 CO2 33.0 [...] <126 mg/dLsuggests IMPAIRED HOMEOSTASIS per A.D.A. criteria. 41-Uad-561621:09 Lactic Acid Comments: [facility] [address] [place], [address] LACTIC ACID 1.5 mmol/L (Normal) Range: 0.4-2.0 :09 Lipase Comments: 'TROP' Serial specimen #1, #2, #3, or #4: [address] [place] [address] [place], [address] LIPASE 40 U/L (Abnormal) Range: 73-393 :09 Partial Thromboplast Time Comments: [facility] [address] [place], [phone] PTT 38.3 s (Abnormal) Range: 24.1-36.2 :09 Prothrombin Time w/INR Comments: [facility] [address] [place], [phone] INR 1.3 (Normal) PROTIME 15.8 s (Abnormal) Range: 11.7-14.9 :09 Troponin-I Comments: 'TROP' Serial specimen #1, #2, #3, or #4: [address] [place] [address] [place], [address] TROPONIN-I < 0.02 ng/mL (Normal) Comments: TROPONIN-I EXPECTED VALUES <0.05 NEGATIVE 0.06 - 0.59 AT RISK OF [place] > OR = 0.60 SUGGEST [place] 78-Eqd-634816:52 Potassium Comments: [facility] [address] [place], [phone] K 3.4 mmol/L (Abnormal) Range: 3.5-5.1 34-Nvu-63010:10 Basic Metabolic Profile (BMP) Comments: DR AVINA ORDERED: BMP, CBC, MRSADR.SANJAY ORDERED: [facility] Kznogjfebz5084 [facility] [place], [address] GAP 12 (Normal) Range: 5-15 CO2 27.0 mmol/L (Normal) Range: 21.0-32.0 CL 99 mmol/L (Normal) Range: 98-107 K 2.7 mmol/L (Abnormal) Range: 3.5-5.1 Comments: Critical Result(s) Called at: 10:30:38 11/14/2016 by:Aura Ch to [facility] NA 138 mmol/L (Normal) Range: [...] 126 mg/dLsuggests DIABETES MELLITUS per A.D.A. criteria. 65-Szs-43411:10 CBC-Complete Blood Cnt No Diff Comments: DR AVINA ORDERED: BMP, CBC, ITA.SANJAY ORDERED: ESTEBAN AVINA ORDERED: BMP, CBC, MRSADR.SANJAY ORDERED: [facility] [address] [place], [place], [address] MPV 10.8 fL (Normal) Range: 6.2-12.0 PLT [...] (Normal) Range: 4.4-11.0 :10 MRSA/SAID SCREEN Comments: [facility] [address] [place], [place], [address] ; another doc MRSA+SAID SCRN See Note (Normal) Comments: DR AVINA ORDERED: BMP, CBC, MRSA ORDERED: K MRSA/SAID SCRNS. AUREUS S. aureus NegativeMRSA MRSA Negative :09 MAGNESIUM (28269) Comments: PATIENT NOT FASTINGPERFORMED BY: [facility]CoKind[facility] Hospital at WayneTliezr2974 [facility] [id number] Magnesium, Serum 1.7 mg/dL (Normal) Range: 1.6-2.3 70-Dpf-299495:09 Metabolic Panel, Basic Comments: PATIENT NOT FASTINGPERFORMED BY: LabCoKindred Hospital at WayneAefrpo7412 [facility] [id number] (03073) Calcium, Serum 8.7 mg/dL (Normal) Range: 8.7-10.3 [...] Glucose, Serum 97 mg/dL (Normal) Range: 65-99 88-Njx-285146:45 Urinalysis, Complete Comments: How was Urine Obtained? PREPARING BOX TENDER TO SPECIFYWooster [facility] [address]drxm[address] [place], [address] MUCUS, URINE RARE {/hpf} (Normal) [...] (Normal) CLARITY Cloudy (Normal) COLOR Yellow (Normal) 65-Yzr-227662:53 CBC W/Diff, Automated Comments: [facility] [address] [place], [place], [address] Absolute Lymph 1.08 {X10_3/ul} (Normal) Range: 0.83-4.51 [...] 4.2-5.4 WBC 6.1 K/mm3 (Normal) Range: 4.4-11.0 81-Bwu-221175:53 Comprehensive Metabolic Profil Comments: [facility] [address] [place], [place], [address] GAP 12 (Normal) Range: 5-15 CO2 27.0 [...] per A.D.A. criteria. :53 Lactic Acid Comments: [facility] [address]av[address] [place], [place], [address] LACTIC ACID 2.2 mmol/L (Abnormal) Range: 0.4-2.0 :53 Partial Thromboplast Time Comments: [facility] [address] [place], [address] PTT 32.1 s (Normal) Range: 24.1-36.2 :53 Prothrombin Time w/INR Comments: [facility] [address] [place], [place], [address] INR 1.0 (Normal) PROTIME 13.2 s (Normal) Range: 11.7-14.9 :54 Basic Metabolic Profile (BMP) Comments: [facility] [address] [place], [place], [address] GAP 10 (Normal) Range: 5-15 CO2 29.0 [...] :54 CBC-Complete Blood Cnt No Diff Comments: [facility] [address] [place], [address] MPV 10.1 fL (Normal) Range: [...] (Normal) Range: 4.4-11.0 :54 Hemoglobin A1c Comments: [facility] [address] [place], [address] HGB A1C 6.4 % (Abnormal) Range: 4.2-6.3 :54 Liver Profile Comments: [facility] [address] [place], [address] D BILI 0.27 mg/dL (Normal) Range: 0.00-0.30 T BILI 0.80 mg/dL (Normal) Range: 0.20-1.00 ALT 12 U/L (Normal) Range: 12-78 ALK P 82 U/L (Normal) Range: 45-117 AST 10 U/L (Abnormal) Range: 15-37 GLOB 3.5 g/dL (Normal) Range: 2.3-3.5 ALB 3.2 g/dL (Abnormal) Range: 3.4-5.0 T PROT 6.7 g/dL (Normal) Range: 6.4-8.2 :54 MRSA/SAID SCREEN Comments: [facility] [address] [place], [place], [address] MRSA+SAID SCRN See Note (Normal) Comments: MRSA/SAID SCRNS. AUREUS S. aureus NegativeMRSA MRSA Negative :54 Partial Thromboplast Time Comments: [facility] [address] [place], [place], [address] PTT 40.7 s (Abnormal) Range: 24.1-36.2 :54 Prothrombin Time w/INR Comments: [address] [place], [place], [address] INR 1.1 (Normal) PROTIME 14.3 s (Normal) Range: 11.7-14.9 :55 CBC W/Diff, Automated Comments: [address] [place], [address] Absolute Lymph 1.18 {X10_3/ul} (Normal) [...] 4.2-5.4 WBC 13.8 K/mm3 (Abnormal) Range: 4.4-11.0 54-Kkt-34866:55 Comprehensive Metabolic Profil Comments: [facility] [address] [place], [place], [address] GAP 12 (Normal) Range: 5-15 CO2 24.0 [...] 200 mg/dLsuggests DIABETES MELLITUS per A.D.A. criteria. 69-Nmm-107304:22 MAGNESIUM (17576) Comments: PATIENT NOT FASTINGPERFORMED BY: [employer]70 [facility] [id number] Magnesium, Serum 1.5 mg/dL (Abnormal) Range: 1.6-2.3 :22 POTASSIUM SERUM (44158) Comments: PATIENT NOT FASTINGPERFORMED BY: [employer]70 [facility] [id number] Potassium, Serum 4.0 mmol/L (Normal) Range: 3.5-5.2 50-Xfc-058070:13 Rapid Flu (77258 x 2) Influenza A Ag negative (Normal) 79-Tqf-391603:42 VITAMIN B12 AND FOLATES Comments: PATIENT NOT FASTINGPERFORMED BY: [employer]rend6370 [facility] [id number] (06255) Folate (Folic Acid), Serum 18.3 ng/mL (Normal) Comments: A serum folate concentration of less than 3.1 ng/mL isconsidered to represent clinical deficiency. Vitamin B12 650 pg/mL (Normal) Range: 211-946 :42 TSH (58686) Comments: PATIENT NOT FASTINGPERFORMED BY: [employer]70 [facility] [id number] TSH 1.610 {uIU/mL} (Normal) Range: 0.450-4.500 :42 Metabolic Panel, Comprehensive Comments: PATIENT NOT FASTINGPERFORMED BY: [employer] [facility] [id number] (05632) ALT (SGPT) 9 [iU]/L (Normal) Range: 0-32 [...] (Normal) Range: 65-99 :26 HgA1C , Office (60866) HgA1C , Office 6.8 % (Normal) Range: 4.6 - 7.1 :26 Blood Glucose , Office (22505) Blood Glucose , Office 110 (Normal) :10 Culture, Body Fluid Comments: [facility] [address] [place], [place], [address] ; Another doc CUBF See Note (Normal) [...] Fluid RBC, WBC AND Comments: LEFT KNEELEFT KNEEWFisher-Titus Medical Center [address]ynoee[address] [place], [address] ; another doc Diff PATH [...] (Normal) :30 Crystals, Body Fluid Comments: LEFT [facility] Thxxkwbxwg4879 [facility] [place], [address] PATH REV Reviewed (Normal) SOURCE/BF SYNOVIAL (Normal) CRYSTALS/BF SEE PATH REV (Normal) :30 Culture, Body Fluid Comments: [facility] [address] [place], [address] CUBF See Note (Normal) Comments: List Antibiotics Last 48 Hours? UNKList Antibiotics to be Started? UNKComments: LEFT KNEEGram StainCentrifuged Specimen? Culture performed on centrifuged specimen Gram Stain 2+ Red Blood Donya ls No White Blood Cells No organisms seen Body Fluid CultNO GROWTH IN 14 DAYS Cult, AnaerobicNo growth in 5 days. :48 CBC W/Diff, Automated Comments: [facility] [address]cafl[address] [place], [address] Absolute Lymph 2.23 {X10_3/ul} (Normal) [...] 4.2-5.4 WBC 7.0 K/mm3 (Normal) Range: 4.4-11.0 8-Jzk-783094:48 Comprehensive Metabolic Profil Comments: [facility] [address]pg[address] [place], [place], [address] GAP 10 (Normal) Range: 5-15 CO2 29.0 [...] 7-18 GLU 99 mg/dL (Normal) Range: 70-110 47-Dze-64621:32 Comprehensive Metabolic Profil Comments: [facility] [address] [place], [place], [address] GAP 8 (Normal) Range: 5-15 CO2 31.0 [...] <126 mg/dLsuggests IMPAIRED HOMEOSTASIS per A.D.A. criteria. 76-Pib-14580:32 Culture, Urine Comments: [facility] [address] [place], [place], [address] CUUR See Note (Normal) Comments: Urine CultureORGANISM [...] $ <=20 S(NF) indicates non-formulary drug at [facility]. Approval by Infectious Disease Specialist required before non- formulary drugs may be ordered and/or dispensed. 50-Asd-922266:08 Urinalysis, Complete Comments: How was Urine Obtained? CLEAN [facility] [address] [place], [address] MUCUS, URINE 0 SEEN {/hpf} [...] (Normal) COLOR Yellow (Normal) :56 POTASSIUM SERUM (57757) Comments: PATIENT NOT FASTINGPERFORMED BY: [employer]70 [facility] [id number] Potassium, Serum 4.4 mmol/L (Normal) Range: 3.5-5.2 :56 MAGNESIUM (96587) Comments: PATIENT NOT FASTINGPERFORMED BY: Phone[employer]70 [facility] HospitalLumiGrowAtrium Health [id number] Magnesium, Serum 1.5 mg/dL (Abnormal) Range: 1.6-2.3 :29 CBC WITH MANUAL DIFF Comments: PATIENT WAS FASTINGPERFORMED BY: [employer]70 [facility] [id number] Information: [id number] ([id number]) Immature Grans (Abs) 0.0 {x10E3/uL} (Normal) Range: [...] 3.77-5.28 WBC 5.8 {x10E3/uL} (Normal) Range: 3.4-10.8 9-Khh-123825:15 CBC, Platelets & Auto Diff Comments: PATIENT NOT FASTINGPERFORMED BY: LabCoKindred Hospital at WayneEheguj2097 [facility] [id number] (11824) Immature Grans (Abs) 0.0 {x10E3/uL} (Normal) Range: [...] Panel, Comprehensive Comments: PATIENT NOT FASTINGPERFORMED BY: LabCoKind[facility] Hospital at WayneAophwf8210 [facility] [id number] (45962) ALT (SGPT) 14 [iU]/L (Normal) Range: 0-32 [...] Glucose, Serum 98 mg/dL (Normal) Range: 65-99 52-Xlw-830668:28 Metabolic Panel, Comments: PATIENT WAS FASTINGPERFORMED BY: CLARITA LabCoKindred Hospital at WayneBkkpyg6428 [facility]De[facility] [id number] Information: [id number] [facility] (64068) ALT (SGPT) 13 [iU]/L (Normal) Range: 0-32 [...] Glucose, Serum 110 mg/dL (Abnormal) Range: 65-99 6-Jqt-809270:54 Urinalysis, Office (68407) UA - LEUKOCYTE ESTERASE Trace (Normal) UA - NITRITE Negative (Normal) URINE UROBILINGN JEWELS TIMED Normal mg/dL (Normal) UA - PROTEIN Negative mg/dL (Normal) UA - PH 6 (Abnormal) UA - BLOOD Negative (Normal) UA - SPECIFIC GRAVITY 1.015 (Normal) UA - KETONES Moderate mg/dL (Normal) UA - BILIRUBIN Negative (Normal) UA - GLUCOSE Negative (Normal) 38-Lgw-681663:21 Basic Metabolic Profile (BMP) Comments: [facility] [address] [place], [place], [address] GAP 9 (Normal) Range: 5-15 CO2 27.0 [...] 200 mg/dLsuggests DIABETES MELLITUS per A.D.A. criteria. 19-Wnr-766247:21 CBC W/Diff, Automated Comments: [facility] [address] [place], [place], [address] Absolute Lymph 3.53 {X10_3/ul} (Normal) Range: 0.83-4.51 [...] 4.2-5.4 WBC 13.8 K/mm3 (Abnormal) Range: 4.4-11.0 97-Dmp-062150:21 Urinalysis, Complete Comments: Order Date: 04/25/16How was Urine Obtained? [facility] Uygdpabbhz9728 [facility], [address] MUCUS, URINE 0 SEEN {/hpf} [...] (Normal) CLARITY Cloudy (Normal) COLOR Yellow (Normal) 95-Rjx-355861:20 Lactic Acid Comments: [facility] Avidijfcpf0826 [facility] [place], [address] LACTIC ACID 4.8 mmol/L (Abnormal) Range: 0.4-2.0 Comments: Critical Result(s) Called at: 19:26:18 04/25/2016 by:Tiffany Oliva RN 44-Yqm-72252:32 CBC W/Diff, Automated Comments: [facility] [address] [place], [address] Absolute Lymph 1.94 {X10_3/ul} (Normal) [...] 4.2-5.4 WBC 6.3 K/mm3 (Normal) Range: 4.4-11.0 31-Wxc-32247:32 Comprehensive Metabolic Profil Comments: [facility] [address] [place], [address] GAP 9 (Normal) Range: 5-15 CO2 26.0 [...] 126 mg/dLsuggests DIABETES MELLITUS per A.D.A. criteria. 00-Uco-918139:01 CBC W/Diff, Automated Comments: [facility] [address]shxs[address] [place], [place], [address] Absolute Lymph 2.12 {X10_3/ul} (Normal) Range: 0.83-4.51 [...] 4.2-5.4 WBC 9.9 K/mm3 (Normal) Range: 4.4-11.0 03-Rib-413617:01 CRP Comments: [facility] Fqqyfhzrel4430 [facility] [place], [place], [address] C-REACTIVE PROT < 2.90 mg/L (Normal) Range: 0.0-3.0 Comments: C-Reactive Protein (CRP) provides useful information for thediagnosis, therapy and monitoring of inflammatory processesand associated diseases. For the evaluation of Relative Riskfor Cardiovascular Dise ase, a High Sensitivity CRP (HSCRP)should be ordered. 98-Eqa-273241:01 Erythrocyte Sed Rate Comments: [facility] Ortigsfbxb4832 [place], [address] SED RATE 10 mm/h (Normal) Range: 0-30 64-Nam-298399:13 CK-MB Quantitative and Index Comments: 'TROP' Serial specimen #1, #2, #3, or #4: 1'CKMB' Serial Specimen #1, #2 or #3? 1[facility] [address]obscaz[address] [place], [address] CKRI 1.5 % (Abnormal) Range: 0.0-1.4 Comments: RELATIVE INDEX >1.5% IS PRESUMPTIVELY POSITIVE CPKMB 1.0 ng/mL (Normal) Range: 0.0-5.0 Comments: CK-MB and RI Interpretation MB Relative Index Non-AMI <or= 5 NA Indeterminate > 5 <or= 4 AMI > 5 > 4 CPK TOTAL 65 U/L (Normal) Range: 26-192 89-Fgb-647302:13 Myoglobin, Serum Comments: [facility] (refer to report for specific site)refer to report for address and phone number Myoglobin, Ser 42 ng/mL (Normal) Range: 25-58 Comments: Performed at: [address] [id number] Director: Edil Robertson PhD, Phone: [phone] 60-Nes-462699:13 Troponin-I Comments: 'TROP' Serial specimen #1, #2, #3, or #4: 1'CKMB' Serial Specimen #1, #2 or #3? [address] [place] [address] [address] [place], [address] TROPONIN-I < 0.02 ng/mL (Normal) Comments: TROPONIN-I EXPECTED VALUES <0.05 NEGATIVE 0.06 - 0.59 AT RISK OF [place] > OR = 0.60 SUGGEST [place] [id number] URINE HANSA CULTURE-JEWELS COL Comments: PATIENT NOT FASTINGPERFORMED BY: [facility] [id number] Information: SRC:[facility] [id number] COUNT ([id number]) Antimicrobial MIHEAD (Normal) Comments: S = Susceptible; [...] mL (Abnormal) Urine Final report Culture,Comprehensive (Abnormal) [id number] Urinalysis, Office (17280) UA - LEUKOCYTE ESTERASE Small (Normal) UA - NITRITE Positive (Normal) URINE UROBILINGN JEWELS TIMED Normal mg/dL (Normal) UA - PROTEIN Trace mg/dL (Normal) UA - PH 7 (Normal) UA - BLOOD Negative (Normal) UA - SPECIFIC GRAVITY 1.025 (Normal) UA - KETONES Small mg/dL (Normal) UA - BILIRUBIN Small (Normal) UA - GLUCOSE Negative (Normal) [id number] Blood Glucose , Office (73636) Blood Glucose , Office 85 (Normal) :38 Basic Metabolic Profile (BMP) Comments: Is Patient Taking Vitamins or Folic Acid Supplements? [facility] [id number] [facility]. [place], [place], [id number] GAP 9 (Normal) Range: 5-15 CO2 28.0 [...] Taking Vitamins or Folic Acid Supplements? [facility] [id number] [place], [address] FOLATES 13.40 ng/mL (Normal) Range: 3.1-17.5 :38 Vitamin B12 723 pg/mL (Normal) Comments: [facility] [id number] [place], [address] Range: 211-911 :32 CBC W/Diff, Automated Comments: [facility] [address]sh[address] [place], [id number] ; ordered by Dr. Colmenares Absolute Lymph [...] Range: 4.4-11.0 :32 Comprehensive Metabolic Profil Comments: [facility] Bnkkbbqdig[address] [place], [address] GAP 5 (Normal) Range: 5-15 CO2 31.0 [...] mg/dL (Normal) Range: 70-110 :03 LIPID PANEL (73996) Comments: PATIENT WAS FASTINGPERFORMED BY: CB [facility] Idccps9288 [facility] [id number] BY: BN [facility] [address] [id number] LDL/HDL Ratio 3.2 {ratio_units} (Normal) Range: 0.0-3.2 [...] 1, 25-DIHYDROXY Comments: PATIENT WAS FASTINGPERFORMED BY: [employer] [facility] [id number] BY: [place] [id number] (62637) Calcitriol(1,25 di-OH Vit D) 51.7 pg/mL (Normal) Range: 19.9-79.3 :03 MICROALBUMIN: CREATININE Comments: PATIENT WAS FASTINGPERFORMED BY: [employer] [facility] [id number] BY: [place] [id number] RATIO (11012) AND (37337) Microalb/Creat Ratio 35.5 {mg/g_creat} (Abnormal) Range: 0.0-30.0 Microalbumin, Urine 42.6 ug/mL (Abnormal) Range: 0.0-17.0 Creatinine, Urine 120.0 mg/dL (Normal) Range: 15.0-278.0 :03 METABOLIC PANEL, Comments: PATIENT WAS FASTINGPERFORMED BY: [employer] [facility] [id number] BY: [place] [id number] COMPREHENSIVE (47486) ALT (SGPT) 14 [iU]/L (Normal) Range: 0-32 [...] Glucose, Serum 137 mg/dL (Abnormal) Range: 65-99 74-Iov-87617:03 CBC, PLATELETS & AUT DIFF Comments: PATIENT WAS FASTINGPERFORMED BY: CB [facility] Rlitxs5295 [facility] [id number] BY: [facility] [address] [id number] Information: [id number] (28693) Immature Grans (Abs) 0.0 {x10E3/uL} (Normal) Range: [...] (THYROID STIMULATING Comments: PATIENT WAS FASTINGPERFORMED BY: [employer] [facility] [id number] BY: [address] [id number] HORMONE) (71947) TSH 3.840 {uIU/mL} (Normal) Range: 0.450-4.500 :03 VITAMIN B12 AND FOLATES Comments: PATIENT WAS FASTINGPERFORMED BY: [facility] WayneElnzqh8135 [facility] [id number] BY: [address] [id number] (79907) Folate (Folic Acid), Serum 14.3 ng/mL (Normal) Comments: A serum folate concentration of less than 3.1 ng/mL isconsidered to represent clinical deficiency. Vitamin B12 742 pg/mL (Normal) Range: 211-946 :56 HgA1C , Office (05390) HgA1C , Office 6.8 % (Normal) Range: 4.6 - 7.1 :56 Blood Glucose , Office (60602) Blood Glucose , Office 128 (Normal) :36 CBC W/Diff, Automated Comments: [facility] Fg[address]jwijrh[address] [place], [place], [id number] Absolute Lymph 2.25 {X10_3/ul} (Normal) Range: 0.83-4.51 [...] Range: 4.4-11.0 :36 Comprehensive Metabolic Profil Comments: [facility] Hqvzqujjls[address] [place], [place], [address] GAP 8 (Normal) Range: 5-15 CO2 28.0 [...] 126 mg/dLsuggests DIABETES MELLITUS per A.D.A. criteria. 3-Dsl-269278:12 ANTINUCLEAR ANTIBODIES DIRECT Comments: [facility] (refer to report for specific site)refer to report for address and phone number EVERTON-DIRECT Negative (Normal) Comments: Performed at: [facility] Lab[address], [place] [id number] Director: Edil Robertson PhD, Phone: [phone] 4-Ffw-866863:12 CBC W/Diff, Automated Comments: [facility] Thluijofpz[address] [place], [place], [id number] Absolute Lymph 1.93 {X10_3/ul} (Normal) Range: 0.83-4.51 [...] 4.2-5.4 WBC 6.4 K/mm3 (Normal) Range: 4.4-11.0 7-Jbh-537750:12 CCP IgG Antibodies Comments: [facility] (refer to report for specific site)refer to report for address and phone number ANTI-CCP 316751 4 {units} (Normal) Range: 0-19 Comments: Negative <20 Weak positive 20 - 39 Moderate positive 40 - 59 Strong positive >59 6-Zxo-924748:12 Comprehensive Metabolic Profil Comments: [facility] Ckxjfxuxnk70[address] [place], [place], [phone] GAP 6 (Normal) Range: 5-15 CO2 33.0 [...] 7-18 GLU 95 mg/dL (Normal) Range: 70-110 7-Nne-409608:12 Hep B Surface Antibodies Comments: [facility] (refer to report for specific site)refer to report for address and phone number Hep B Loi AB Reactive (Normal) Comments: Non Reactive: Inconsistent with immunity, less than 10 mIU/mL Reactive: Consistent with immunity, greater than 9.9 mIU/mL 4-Tyn-191142:12 Hepatitis B Surface Ag Comments: [facility] (refer to report for specific site)refer to report for address and phone number HB SURF AG Negative (Normal) :12 Hepatitis B Core AB IgM Comments: [facility] (refer to report for specific site)refer to report for address and phone number HB CORE [id number] Negative (Normal) Comments: Performed at: - [facility] [id number] Director: Edil Robertson PhD, Phone: [phone] at: - Lab[address] [id number] Director: Jared Rodriguez PhD, Phone: [phone] at: - Lab[address] [id number] Director: Dylan Matthews MD, Phone: [phone] :12 Hepatitis C Antibodies Comments: [facility] (refer [...] a more specific supplemental or PCR testing. [facility] offers HCV Ab w/Reflex to Verification test #[id number]. :12 HLA B27 Negative (Normal) Comments: [facility] (refer to report for specific site)refer to report for address and phone number Comments: HLA-B*27 NegativeHLA allele interpretation for all loci based on IMGT/HLAdatabase version 3.15A Lab CLIA ID Number [id number] test was performed using PCR (Polymerase ChainReaction)/SSOP (Sequence Specific Oligonucleotide Probes)technique. SBT (Sequence Based Typing) and/or SSP(Sequence Specific Primers) may be used as supplementalmethods when necessary. Please contact HLA CustomerService at [phone] if you have any questions. Director of HLA Laboratory Dr Jared Rodriguez, PhD :12 Rheumatoid Factor Comments: [facility] Jrltmmzxic[address] [place], [address] RHEUMATOID FAC < 10.0 {IU/mL} (Normal) 5-Uyh-291683:12 Vitamin D,25 Hydroxy Comments: [facility] Lzpnjfizvp6443 [place], [address] Vitamin D 25-OH 50.9 ng/mL (Normal) Comments: Vitamin D 25(OH) Status Range Deficiency <20 ng/mL (50nmol/L) Insuffciency 20 - 30 ng/mL (50 - 75 nmol/L) Sufficiency 30 - 100 ng/mL (75 - 250 nmol/L) Toxicity >100 ng/mL (>250 nmol/L) 92-Cyd-44676:37 LIPID PANEL (17128) Comments: PATIENT WAS FASTINGPERFORMED BY: [facility] Shqtgk3174 [facility] [id number] LDL/HDL Ratio 2.8 {ratio_units} (Normal) Range: 0.0-3.2 [...] - 169 >19 years 100 - 199 07-Atz-66912:37 CBC, PLATELETS & AUT DIFF Comments: PATIENT WAS FASTINGPERFORMED BY: [facility]CoKindred Hospital at WayneBqcwme8499 [facility] [id number] Information: [id number] (07351) Immature Grans (Abs) 0.0 {x10E3/uL} (Normal) Range: [...] B-12 (CYANOCOBALAMIN) Comments: PATIENT WAS FASTINGPERFORMED BY: [facility]6370 [facility] [id number] (52511) Vitamin B12 871 pg/mL (Normal) Range: 211-946 :37 Vitamin D Hydroxy (91537) Comments: PATIENT WAS FASTINGPERFORMED BY: [facility] at WayneZfblop0781 [facility] [id number] Vitamin D, 25-Hydroxy 69.6 ng/mL (Normal) Range: 30.0-100.0 Comments: Vitamin D deficiency has been defined by the [place] ofMedicine and an Endocrine Society practice guideline as alevel of serum 25-OH vitamin D less than 20 ng/mL (1,2).The Endocrine Society went on to further define vitamin Dinsufficiency as a level between 21 and 29 ng/mL (2).1. IOM ([place] of Medicine). 2010. Dietary reference intakes for calcium and D. [place]: The National Academies Press.2. Delma MF, Mckenna ABDALLA, Dane MACKENZIE, et al. Evaluation, treatment, and prevention of vitamin D deficiency: an Endocrine Society clinical practice guideline. JCEM. 2010; 96(7):1911-30. 00-Vbr-23175:37 METABOLIC PANEL, COMPREHENSIVE Comments: PATIENT WAS FASTINGPERFORMED BY: [facility]townKind[facility] at WayneYldkpy1474 [facility] [id number]; apt. 07-01-15 (19290) ALT (SGPT) 10 [iU]/L (Normal) Range: 0-32 [...] (Abnormal) Range: 65-99 :02 HgA1C , Office (36705) HgA1C , Office 7.1 % (Normal) Range: 4.6 - 7.1 75-Stb-220379:24 EBV Panel (68277) Comments: PATIENT NOT FASTINGPERFORMED BY: [facility]townKind[facility] at WayneSncpsj6427 [facility] [id number] Interpretation: SPRCS (Normal) Comments: EBV Interpretation Chart [...] DIFF WBC Comments: PATIENT NOT FASTINGPERFORMED BY: [employer] TherapeuticsMun[facility]6370 [facility] [id number] Information: [id number] (33840) Immature Grans (Abs) 0.0 {x10E3/uL} (Normal) Range: [...] 3.77-5.28 WBC 6.7 {x10E3/uL} (Normal) Range: 3.4-10.8 03-Xle-887944:37 HANSA CULTURE-OTHER (69197) Comments: PATIENT NOT FASTINGPERFORMED BY: [facility]CoKindred Hospital at WayneWcsceq7282 [facility] [id number] Information: SRC:AIDAN [id number] Result 1 RRF (Normal) Comments: Routine respiratory vicente Upper Respiratory Culture Final report (Normal) 66-Qxm-005353:30 Rapid Strep Test, Office (74766) Rapid Strep Test, Office Negative (Normal) 06-Feb-20159:15 CBC, Platelet, No Differential Comments: PATIENT WAS FASTINGPERFORMED BY: [facility]6370 [facility] [id number] Platelets 245 {x10E3/uL} (Normal) Range: 150-379 RDW [...] Panel (14) Comments: PATIENT WAS FASTINGPERFORMED BY: [facility]6370 [facility] [id number] Information: [id number] ALT (SGPT) 8 [iU]/L (Normal) Range: 0-32 [...] With LDL/HDL Comments: PATIENT WAS FASTINGPERFORMED BY: [employer]70 [facility] AudioAt[facility] [id number] Ratio LDL/HDL Ratio 3.7 {ratio_units} Range: 0.0-3.2 [...] pg/mL (Normal) Comments: PATIENT WAS FASTINGPERFORMED BY: [employer] Znyjop6626 [facility] [id number] :15 Range: 211-946 Vitamin D, 25-Hydroxy 56.4 ng/mL (Normal) Comments: PATIENT WAS FASTINGPERFORMED BY: [employer] Jwqvih4552 [facility] [id number] :15 Range: 30.0-100.0 Comments: Vitamin D deficiency has been defined by the [place] of[place]icine and an Endocrine Society practice guideline as alevel of serum 25-OH vitamin D less than 20 ng/mL (1,2).The Endocrine Society went on to further define vitamin Dinsufficiency as a level between 21 and 29 ng/mL (2).1. IOM ([place] of Medicine). 2010. Dietary reference intakes for calcium and D. [place]: The National Academies Press.2. Mckenna Christie, Dane MACKENZIE et al. Evaluation, treatment, and prevention of vitamin D deficiency: an Endocrine Society clinical practice guideline. JCEM. 2010; 96(7):1911-30. :33 HgA1C , Office (43445) HgA1C , Office 6.4 % (Normal) Range: 4.6 - 7.1 :27 Potassium Comments: Test performed at:[facility] Mlewkdltvt06[address] [place] [address] K 3.5 mmol/L (Normal) Range: 3.5-5.1 :59 Vitamin D Hydroxy (02704) Comments: PATIENT NOT FASTINGPERFORMED BY: [place] [id number] Vitamin D, 25-Hydroxy 40.6 ng/mL (Normal) Range: 30.0-100.0 Comments: Vitamin D deficiency has been defined by the [place] ofDiley Ridge Medical Centercine and an Endocrine Society practice guideline as alevel of serum 25-OH vitamin D less than 20 ng/mL (1,2).The Endocrine Society went on to further define vitamin Dinsufficiency as a level between 21 and 29 ng/mL (2).1. IOM ([place] of Medicine). 2010. Dietary reference intakes for calcium and D. [place]: The National Academies Press.2. Mckenna Christie, Dane MACKENZIE, et al. Evaluation, treatment, and prevention of vitamin D deficiency: an Endocrine Society clinical practice guideline. JCEM. 2010; 96(7):191-. :59 T4, FREE (THYROXINE) Comments: PATIENT NOT FASTINGPERFORMED BY: [employer] LabOm[facility] Ipacoc4[address] [place] [id number] Information: [id number] (47356) T4,Free(Direct) 1.22 ng/dL (Normal) Range: 0.82-1.77 :59 T3, FREE (TRIDOTHYRONINE) (69955) Comments: PATIENT NOT FASTINGPERFORMED BY: [facility] Higmmg9569 [facility] [id number] Triiodothyronine,Free,Serum 3.2 pg/mL (Normal) Range: 2.0-4.4 :59 TSH (51427) Comments: PATIENT NOT FASTINGPERFORMED BY: [facility] Juhqdn9415 [facility] [id number] TSH 2.460 {uIU/mL} (Normal) Range: 0.450-4.500 :59 SED RATE ERYTHROCYTE (26343) Comments: PATIENT NOT FASTINGPERFORMED BY: [facility] Spnzxl2086 [facility] [id number] Sedimentation Rate-Westergren 3 mm/h (Normal) Range: 0-40 :59 C-REACTIVE PROTEIN (48169) Comments: PATIENT NOT FASTINGPERFORMED BY: LabMunson [facility] Hospital6370 [facility] [id number] C-Reactive Protein, Quant 2.6 mg/L (Normal) Range: 0.0-4.9 :06 TSH (80251) Comments: PATIENT NOT FASTINGPERFORMED BY: [facility] Nswlfo[address] [facility] [place] [id number] TSH 1.920 {uIU/mL} (Normal) Range: 0.450-4.500 :06 CBC with auto diff Comments: PATIENT NOT FASTINGPERFORMED BY: [facility] Yunzhe7774 [facility] [id number] Information: [id number] (73075) Immature Grans (Abs) 0.0 {x10E3/uL} (Normal) Range: [...] 3.77-5.28 WBC 7.9 {x10E3/uL} (Normal) Range: 3.4-10.8 4-Sbi-935695:06 METABOLIC PANEL, COMPREHENSIVE Comments: PATIENT NOT FASTINGPERFORMED BY: LabCoKindred Hospital at WayneOxhewx3490 [facility] [id number] (97797) ALT (SGPT) 6 [iU]/L (Normal) Range: 0-32 [...] Glucose, Serum 111 mg/dL (Abnormal) Range: 65-99 1-Vwg-700843:09 URINE HANSA CULTURE (JEWELS Comments: PATIENT NOT FASTINGPERFORMED BY: LabCoKindred Hospital at WayneZwjkuz3451 [facility] [id number] Information: SRC:[facility] [id number] COL COUNT) (27059) Result 1 CNSNSS (Abnormal) Comments: Coagulase negative [...] S Urine Final report Culture,Comprehens (Abnormal) ananth 9-Uuk-725664:54 Urinalysis, Office (67976) UA - LEUKOCYTE ESTERASE Negative (Normal) UA - NITRITE Negative (Normal) URINE UROBILINGN JEWELS TIMED Normal mg/dL (Normal) UA - PROTEIN Negative mg/dL (Normal) UA - PH 6.5 (Normal) UA - BLOOD Negative (Normal) UA - SPECIFIC GRAVITY 1.015 (Normal) UA - KETONES Negative mg/dL (Normal) UA - BILIRUBIN Negative (Normal) UA - GLUCOSE Negative (Normal) 77-Tri-153260:40 Urine Drug Screen (VISTA) Comments: Has pt arrived? YTest performed at:[facility] Sfvizgh[address] [place] [address] THC NEGATIVE (Normal) PCP NEGATIVE (Normal) [...] MUST BE ORDERED SEPARATELY. USE TESTMNEMONIC: UTCA 40-Vhc-233765:25 Acetaminophen (Tylenol) Level Comments: Test performed at:[facility] Qxzrogytai[address] [place] [address] ACETAMINOPHEN < 2.0 ug/mL (Abnormal) Range: 10.0-30.0 33-Hjk-384398:25 Basic Metabolic Profile (BMP) Comments: Test performed at:[facility] Acidkykaoh57[address] [place] [address] GAP 8 (Normal) Range: 5-15 CO2 [...] 126 mg/dLsuggests DIABETES MELLITUS per A.D.A. criteria. 34-Wxt-923202:25 CBC W/Diff, Automated Comments: Test performed at:[facility] Dfmvjhlcsd[address] [place] [address] Absolute Lymph 0.55 {X10_3/ul} (Abnormal) Range: 0.83-4.51 [...] 4.2-5.4 WBC 11.3 K/mm3 (Abnormal) Range: 4.4-11.0 73-Cno-611679:25 Partial Thromboplast Time Comments: Test performed at:[facility] Yqxzbsrrno47[address] [place] [address] PTT 31.9 s (Normal) Range: 24.1-36.2 :25 Prothrombin Time w/INR Comments: Test performed at:[facility] Ftnaqnpcbh3[address] [place] [address] INR 1.1 (Normal) PROTIME 14.0 s (Normal) Range: 11.7-14.9 :22 Basic Metabolic Profile (BMP) Comments: Test performed at:[facility] Iiwpyqqwfs8228 [facility] [place] [address] GAP 8 (Normal) Range: 5-15 [...] Blood Cnt No Diff Comments: Test performed at:[facility] Z[address]ekflsthd24[address] [place] [address] MPV 10.0 fL (Normal) Range: [...] Blood Cnt No Diff Comments: Test performed at:[facility] Xsdjfllfnj7836 [place] [address] MPV 10.4 fL (Normal) Range: [...] Basic Metabolic Profile (BMP) Comments: Test performed at:[facility] Fpudypzfff5896 [facility] [address] GAP 8 (Normal) Range: 5-15 [...] 126 mg/dLsuggests DIABETES MELLITUS per A.D.A. criteria. 75-Ifa-49689:52 CBC-Complete Blood Cnt No Diff Comments: Test performed at:[facility] Eboioditbs[address] [place] [address] MPV 10.0 fL (Normal) Range: [...] 4.2-5.4 WBC 8.7 K/mm3 (Normal) Range: 4.4-11.0 19-Taq-055450:00 Bedside Glucose Comments: Test performed at:[facility] Wmtynuxgja7601 [place] [address] BEDSIDE GLU 138 mg/dL (Abnormal) Range: 70-110 Comments: No Action RequiredMANAGEMENT OF PATIENT CARE PER NURSING PROTOCOL 87-Ovz-908112:12 Bedside Glucose Comments: Test performed at:[facility] Zqcnutknxv3939 [facility] [place] [address] BEDSIDE GLU 108 mg/dL (Normal) Range: 70-110 Comments: No Action RequiredMANAGEMENT OF PATIENT CARE PER NURSING PROTOCOL 05-Kqo-49383:07 VITAMIN B-12 (CYANOCOBALAMIN) Comments: PATIENT WAS FASTINGPERFORMED BY: [facility]Co[facility] [place] 5667770 [facility] [id number] (89030) Vitamin B12 498 pg/mL (Normal) Range: 211-946 :07 MICROALBUMIN: CREATININE RATIO Comments: PATIENT WAS FASTINGPERFORMED BY: [employer] TherapeuticsMunson Healthcare [facility]6370 [facility] [id number] (88730) AND (47519) Microalb/Creat Ratio 24.7 {mg/g_creat} (Normal) Range: 0.0-30.0 Microalbumin, Urine 36.2 ug/mL (Abnormal) Range: 0.0-17.0 Creatinine, Urine 146.6 mg/dL (Normal) Range: 15.0-278.0 :07 CBC W/AUTO DIFF WBC Comments: PATIENT WAS FASTINGPERFORMED BY: [facility]townKind[facility] Hospital at WayneEggecd7981 [facility] [id number] Information: [id number] (58987) Immature Grans (Abs) 0.0 {x10E3/uL} (Normal) Range: [...] 7.0 {x10E3/uL} (Normal) Range: 3.4-10.8 :07 TSH (64988) Comments: PATIENT WAS FASTINGPERFORMED BY: [place] Euqpuc0902 [facility] [id number] TSH 4.510 {uIU/mL} (Abnormal) Range: 0.450-4.500 :07 LIPID PANEL (86639) Comments: PATIENT WAS FASTINGPERFORMED BY: [employer] [facility] [id number] VLDL Cholesterol Peg VLDLCH mg/dL (Normal) Range: [...] PANEL, COMPREHENSIVE Comments: PATIENT WAS FASTINGPERFORMED BY: [employer] Vtcmgj3548 [facility] [id number] (61896) ALT (SGPT) 10 [iU]/L (Normal) Range: 0-32 [...] (Abnormal) Range: 65-99 :22 HgA1C , Office (98714) HgA1C , Office 6.9 % (Normal) Range: [...] 4.2-5.4 WBC 5.6 K/mm3 (Normal) Range: 4.4-11.0 0-Hta-318979:09 MRSA+SAID SCRN See Note (Normal) Comments: Results called on 08/07/14 by Zohreh THOMPSON ([facility]) [phone]. Comments: Copy of report sent to Infection Control Printer MS#-[id number] 08/07/14 2645 [facility]. RESULTS PRINTED MS#-[id number] S. AUREUS S. aureus PositiveMRSA MRSA Negative :34 VITAMIN B-12 (CYANOCOBALAMIN) Comments: PATIENT WAS FASTINGPERFORMED BY: LabCoKindred Hospital at WayneQrhbcw3288 [facility] [id number] (48794) Vitamin B12 1631 pg/mL (Abnormal) Range: 211-946 84-Jwm-04324:34 CBC W/AUTO DIFF WBC Comments: PATIENT WAS FASTINGPERFORMED BY: [facility]6370 [facility] [id number] Information: [id number] (32935) Immature Grans (Abs) 0.0 {x10E3/uL} (Normal) Range: [...] 3.77-5.28 WBC 4.0 {x10E3/uL} (Normal) Range: 3.4-10.8 06-Fqi-22183:34 METABOLIC PANEL, COMPREHENSIVE Comments: PATIENT WAS FASTINGPERFORMED BY: [facility]6370 [facility] [id number] (17323) ALT (SGPT) 10 [iU]/L (Normal) Range: 0-32 [...] Glucose, Serum 127 mg/dL (Abnormal) Range: 65-99 40-Pul-56658:34 LIPID PANEL (15026) Comments: PATIENT WAS FASTINGPERFORMED BY: [facility]6370 [facility] [id number] LDL/HDL Ratio 3.3 {ratio_units} (Abnormal) Range: 0.0-3.2 [...] Microscopic Examination Comments: PATIENT WAS FASTINGPERFORMED BY: [employer]6370 [facility] [id number] Bacteria None seen (Normal) Epithelial Cells (non renal) 0-10 {/hpf} (Normal) Range: 0 - 10 RBC None seen {/hpf} (Normal) Range: 0 - 2 WBC 0-5 {/hpf} (Normal) Range: 0 - 5 :12 TSH (61653) Comments: PATIENT WAS FASTINGPERFORMED BY: [facility] [id number]; non-emergent till apt this week TSH 1.560 {uIU/mL} (Normal) Range: 0.450-4.500 :12 URINALYSIS, W/ MICRO (41914) Comments: PATIENT WAS FASTINGPERFORMED BY: [employer]6370 [facility] [id number] Microscopic Examination See below: (Normal) Comments: Microscopic was indicated and was performed. Microscopic Examination MICRON (Normal) Comments: Microscopic follows if indicated. Nitrite, Urine Negative (Normal) Urobilinogen,Semi-Qn 0.2 mg/dL (Normal) Range: 0.0-1.9 Bilirubin Negative (Normal) Occult Blood Negative (Normal) Ketones Negative (Normal) Glucose Negative (Normal) Protein Trace (Normal) WBC Esterase Negative (Normal) Appearance Clear (Normal) Urine-Color Yellow (Normal) pH 8.0 (Abnormal) Range: 5.0-7.5 Specific [place] 1.014 (Normal) Range: 1.005-1.030 :12 Vitamin D Hydroxy (65890) Comments: PATIENT WAS FASTINGPERFORMED BY: [employer] Xxglrj7909 [facility] [id number] Vitamin D, 25-Hydroxy 42.2 ng/mL (Normal) Range: 30.0-100.0 Comments: Vitamin D deficiency has been defined by the [place] ofMedicine and an Endocrine Society practice guideline as alevel of serum 25-OH vitamin D less than 20 ng/mL (1,2).The Endocrine Society went on to further define vitamin Dinsufficiency as a level between 21 and 29 ng/mL (2).1. IOM ([place] of Medicine). 2010. Dietary reference intakes for calcium and D. [place]: The National Academies Press.2. Delma MF, Mckenna ABDALLA, Dane MACKENZIE, et al. Evaluation, treatment, and prevention of vitamin D deficiency: an Endocrine Society clinical practice guideline. JCEM. 2010; 96(7):1911-30. :12 MICROALBUMIN: CREATININE RATIO Comments: PATIENT WAS FASTINGPERFORMED BY: [facility]townKind[facility] Hospital at WayneQrtteg1584 [facility] [id number] (89739) AND (97737) Microalb/Creat Ratio 4.7 {mg/g_creat} (Normal) Range: 0.0-30.0 Creatinine, Urine 49.4 mg/dL (Normal) Range: 15.0-278.0 Microalbumin, Urine 2.3 ug/mL (Normal) Range: 0.0-17.0 :12 METABOLIC PANEL, Comments: PATIENT WAS FASTINGPERFORMED BY: FlowtownKindred Hospital at WayneZpfpdr0066 [facility] [id number] Information: [id number] COMPREHENSIVE (78391) ALT (SGPT) 12 [iU]/L (Normal) Range: 0-32 [...] mg/dL (Abnormal) Range: 65-99 :12 LIPID PANEL (47271) Comments: PATIENT WAS FASTINGPERFORMED BY: [employer] [facility] [id number] LDL/HDL Ratio 2.7 {ratio_units} (Normal) Range: 0.0-3.2 [...] B-12 (CYANOCOBALAMIN) Comments: PATIENT WAS FASTINGPERFORMED BY: [employer] [facility] [id number] (55649) Vitamin B12 287 pg/mL (Normal) Range: 211-946 :34 HgA1C , Office (62724) HgA1C , Office 6.3 % (Normal) Range: 4.6 - 7.1 :55 Creatine Kinase Total (87364) Comments: PATIENT NOT FASTINGPERFORMED BY: [employer] [facility] [id number] Creatine Kinase,Total,Serum 105 U/L (Normal) Range: 24-173 :55 TSH (28405) Comments: PATIENT NOT FASTINGPERFORMED BY: LabCoKindred Hospital at WayneEqxjxu6596 [facility] [id number] TSH 1.590 {uIU/mL} (Normal) Range: 0.450-4.500 :55 METABOLIC PANEL, Comments: PATIENT NOT FASTINGPERFORMED BY: LabCoKindred Hospital at WayneBykpka6660 [facility] [id number] Information: [id number] COMPREHENSIVE (93134) ALT (SGPT) 13 [iU]/L (Normal) Range: 0-32 [...] (Abnormal) Range: 65-99 :33 HgA1C , Office (36597) HgA1C , Office 6.7 % (Normal) Range: 4.6 - 7.1 :46 MICROALBUMIN: CREATININE RATIO Comments: PATIENT WAS FASTINGPERFORMED BY: [employer] Gakbxh0177 [facility] [id number] (69930) AND (17183) Microalb/Creat Ratio 20.0 {mg/g_creat} (Normal) Range: 0.0-30.0 Microalbumin, Urine 21.7 ug/mL (Abnormal) Range: 0.0-17.0 Creatinine, Urine 108.5 mg/dL (Normal) Range: 15.0-278.0 :46 TSH (67008) Comments: PATIENT WAS FASTINGPERFORMED BY: [place] Wjpujs7284 [facility] [id number] TSH 2.670 {uIU/mL} (Normal) Range: 0.450-4.500 :46 Vitamin D Hydroxy (94312) Comments: PATIENT WAS FASTINGPERFORMED BY: LabDotted Blockrp Powjfa9798 [facility] [id number] Vitamin D, 25-Hydroxy 42.9 ng/mL (Normal) Range: 30.0-100.0 Comments: Vitamin D deficiency has been defined by the [place] ofD[facility] Medical Centercine and an Endocrine Society practice guideline as alevel of serum 25-OH vitamin D less than 20 ng/mL (1,2).The Endocrine Society went on to further define vitamin Dinsufficiency as a level between 21 and 29 ng/mL (2).1. IOM ([place] of Medicine). 2010. Dietary reference intakes for calcium and D. [place]: The National Academies Press.2. Delma MF, Mckenna ABDALLA, Dane MACKENZIE, et al. Evaluation, treatment, and prevention of vitamin D deficiency: an Endocrine Society clinical practice guideline. JCEM. 2010; 96(7):1911-30. :46 CBC, PLATELETS & AUT DIFF Comments: PATIENT WAS FASTINGPERFORMED BY: LabCoKindred Hospital at WayneDlgpiy2623 [facility] [id number] Information: [id number] (30755) Immature Grans (Abs) 0.0 {x10E3/uL} (Normal) Range: [...] 3.77-5.28 WBC 8.7 {x10E3/uL} (Normal) Range: 3.4-10.8 18-Zaq-249234:46 VITAMIN B-12 (CYANOCOBALAMIN) Comments: PATIENT WAS FASTINGPERFORMED BY: LabCoKindred Hospital at WayneUxntjg4410 [facility] [id number] (04220) Vitamin B12 382 pg/mL (Normal) Range: 211-946 63-Jwy-544697:46 METABOLIC PANEL, COMPREHENSIVE Comments: PATIENT WAS FASTINGPERFORMED BY: CLARITA PhoneFusion70 [facility] [id number] (71182) ALT (SGPT) 15 [iU]/L (Normal) Range: 0-32 [...] Glucose, Serum 130 mg/dL (Abnormal) Range: 65-99 33-Lsd-707557:46 LIPID PANEL (78095) Comments: PATIENT WAS FASTINGPERFORMED BY: CLARITA Aunt Kitchen6370 [facility] [id number] LDL/HDL Ratio 3.4 {ratio_units} (Abnormal) Range: 0.0-3.2 LDL Cholesterol Calc 130 mg/dL (Abnormal) Range: 0-99 VLDL Cholesterol Peg 57 mg/dL (Abnormal) Range: 5-40 HDL Cholesterol 38 mg/dL (Abnormal) Comments: According to ATP-III Guidelines, HDL-C >59 mg/dL is considered anegative risk factor for CHD. Triglycerides 287 mg/dL (Abnormal) Range: 0-149 Cholesterol, Total 225 mg/dL (Abnormal) Range: 100-199 0-Luo-714272:44 HgA1C , Office (62955) HgA1C , Office 6.6 % (Normal) Range: 4.6 - 7.1 :43 CBC, Platelets & Auto Diff Comments: PATIENT NOT FASTINGPERFORMED BY: [facility] Fwipxu4601 [facility] [id number] Information: [id number] (16743) Immature Grans (Abs) 0.0 {x10E3/uL} (Normal) Range: [...] (Normal) Range: 3.4-10.8 :43 Metabolic Panel, Basic (06729) Comments: PATIENT NOT FASTINGPERFORMED BY: [facility]6370 [facility] [id number] Calcium, Serum 9.4 mg/dL (Normal) Range: 8.6-10.2 [...] mg/dL (Abnormal) Range: 65-99 :10 HANSA CULTURE-OTHER (21573) Comments: PATIENT NOT FASTINGPERFORMED BY: [facility]6370 [facility] [id number] Information: SRC:THRT [id number] Result 1 RFMNR (Normal) Comments: Mixed growth consisting of multiple gram negative rods and routinerespiratory vicente. Upper Respiratory Culture Final report (Normal) :56 Rapid Strep Test, Office (09762) Rapid Strep Test, Office Negative (Normal) :03 Blood Glucose , Office (95221) Blood Glucose , Office 150 (Normal) :14 PPD (55912) Comments: Lot: [id number]: 12/17Amt: 0.1mlRoute: intradermalSite: R FAGiven by: JQuestel, NATIONAL SE[employer]ARY SKIN TEST INTRADERMAL TB negative (Normal) :39 HgA1C , Office (60265) HgA1C , Office 6.4 % (Normal) Range: 4.6 - 7.1 :31 Microscopic Examination Comments: PATIENT WAS FASTINGPERFORMED BY: [facility]townKindred Hospital at WayneLbhyir8457 [facility] [id number] Bacteria Few (Normal) Mucus Threads Present (Normal) Epithelial Cells (non renal) 0-10 {/hpf} (Normal) Range: 0 - 10 RBC 0-3 {/hpf} (Normal) Range: 0 - 3 WBC 0-5 {/hpf} (Normal) Range: 0 - 5 :31 MICROALBUMIN: CREATININE RATIO Comments: PATIENT WAS FASTINGPERFORMED BY: FlowtownKindred Hospital at WayneLhzfcx7135 [facility] [id number] (61674) AND (69597) Microalb/Creat Ratio 12.6 {mg/g_creat} (Normal) Range: 0.0-30.0 Microalbumin, Urine 9.2 ug/mL (Normal) Range: 0.0-17.0 Creatinine, Urine 73.3 mg/dL (Normal) Range: 15.0-278.0 :31 CBC WITH MANUAL DIFF Comments: PATIENT WAS FASTINGPERFORMED BY: [place] TherapeuticsM[facility]6370 [facility] [id number] Information: [id number] (86001) Immature Grans (Abs) 0.0 {x10E3/uL} (Normal) Range: [...] 3.77-5.28 WBC 4.6 {x10E3/uL} (Normal) Range: 4.0-10.5 43-Vyu-27989:31 METABOLIC PANEL, COMPREHENSIVE Comments: PATIENT WAS FASTINGPERFORMED BY: LabCoKindred Hospital at WayneVpovbv0834 [facility] [id number] (60538) ALT (SGPT) 14 [iU]/L (Normal) Range: 0-32 [...] (Abnormal) Range: 65-99 :31 URINALYSIS, W/ MICRO (67911) Comments: PATIENT WAS FASTINGPERFORMED BY: [place] [id number] Microscopic Examination See below: (Normal) Microscopic Examination MICRON (Normal) Comments: Microscopic follows if indicated. Nitrite, Urine Negative (Normal) Urobilinogen,Semi-Qn 0.2 mg/dL (Normal) Range: 0.0-1.9 Bilirubin Negative (Normal) Occult Blood Negative (Normal) Ketones Negative (Normal) Glucose Negative (Normal) Protein Negative (Normal) Appearance Clear (Normal) Urine-Color Yellow (Normal) WBC Esterase Negative (Normal) pH 8.5 (Abnormal) Range: 5.0-7.5 Specific [place] 1.018 (Normal) Range: 1.005-1.030 :31 LIPID PANEL (82390) Comments: PATIENT WAS FASTINGPERFORMED BY: [employer] Ltd70 [facility] [id number] LDL Cholesterol Calc 75 mg/dL (Normal) Range: [...] B-12 (CYANOCOBALAMIN) Comments: PATIENT WAS FASTINGPERFORMED BY: [facility]6370 [facility] [id number] (15013) Vitamin B12 299 pg/mL (Normal) Range: 211-946 :31 Vitamin D Hydroxy (19581) Comments: PATIENT WAS FASTINGPERFORMED BY: [facility] Egqrgv7989 [facility] [id number] Vitamin D, 25-Hydroxy 31.2 ng/mL (Normal) Range: 30.0-100.0 Comments: Vitamin D deficiency has been defined by the [place] ofMedicine and an Endocrine Society practice guideline as alevel of serum 25-OH vitamin D less than 20 ng/mL (1,2).The Endocrine Society went on to further define vitamin Dinsufficiency as a level between 21 and 29 ng/mL (2).1. IOM ([place] of Medicine). 2010. Dietary reference intakes for calcium and D. [place]: The National Academies Press.2. Delma MF, Mckenna ABDALLA, Dane MACKENZIE, et al. Evaluation, treatment, and prevention of vitamin D deficiency: an Endocrine Society clinical practice guideline. JCEM. 2010; 96(7):1911-30. :31 TSH (04533) Comments: PATIENT WAS FASTINGPERFORMED BY: [facility]6370 [facility] [id number] TSH 4.190 {uIU/mL} (Normal) Range: 0.450-4.500 :15 HgA1C , Office (75504) HgA1C , Office 6.4 % (Normal) Range: 4.6 - 7.1 :15 Blood Glucose , Office (10851) Blood Glucose , Office 141 (Normal) :19 [...] M.D.October 02, 2012 at 9:24 :48 PM [phone] Signed RB/RB If you are the referring physician and would like to consult with theradiologist who provided this interpretation, please contact Maem Mario at . If this radiologist is unavailable, you will bedirected to another radiologist to assist. If you are a patient with a question regarding this report, pleasecontactyour referring physician harman benítez. Professional Interpretation Provided By: Porch, Phone , These documents contain legally protected [...] on 10/02/122128 Sign by: Keith Crocker DO 03-Qex-45336:55 Vitamin D Hydroxy (69077) Comments: PATIENT NOT FASTINGPERFORMED BY: [facility]6370 [facility] [id number] Information: [id number] Vitamin D, 25-Hydroxy 39.5 ng/mL (Normal) Range: 30.0-100.0 Comments: Vitamin D deficiency has been defined by the [place] ofMedicine and an Endocrine Society practice guideline as alevel of serum 25-OH vitamin D less than 20 ng/mL (1,2).The Endocrine Society went on to further define vitamin Dinsufficiency as a level between 21 and 29 ng/mL (2).1. IOM ([place] of Medicine). 2010. Dietary reference intakes for calcium and D. [place]: The National Academies Press.2. Delma MF, Mckenna [place], Dane MACKENZIE, et al. Evaluation, treatment, and prevention of vitamin D deficiency: an Endocrine Society clinical practice guideline. JCEM. 2010; 96(7):1911-30. 68-Bsv-86152:41 ESOPHAGUS ONLY Radiology Report See Note (Normal) [...] Valenzuela M.D.September 17, 2012 at 9:02:07 AM [id number] Signed GP/GP If you are the referring physician and would like to consult with theradiologist damaso davenport provided this interpretation, please contact Mame Mccoy at [phone]. If this radiologist is unavailable, youwill be directed to another radiologist to assist. If you are a patient wi th a question regarding this report, pleasecontactyour referring physician directly. Professional Interpretation Provided By: Porch, Phone , These documents contain l egally [...] Range: 211-946 7:31 (Normal) Comments: Performed at: [address] [id number] Director: Demarco Mccormack PhD, Phone: [phone] 17-Sep-2012 BID 0.10 mg/dL Range: 0.00-0.30 7:31 (Normal) 37-Sqj-83272:31 CBCMD ANC 3.6 3/uL (Normal) Range: 2.0-7.7 [...] Simpson M.D.September 13, 2012 at 2:32:10 PM [id number] Signed DL/DL If you are the referring physician and would like to consult with theradiologist who provided this interpretation, please co ntact Mame Lancaster at [phone]. If this radiologist is unavailable, youwillbe directed to another radiologist to assist. If you are a patient with a question regarding this report, pleasecont actyour referring physician directly. Professional Interpretation Provided By: Porch, Phone , These documents contain legally protected [...] Valenzuela M.D.September 13 13 at 2:58:06 PM [id number] Signed GP/GP If you are the referring physician and would like to consult with theradiologist who provided this interpretation, please contact Brown chaidez M.D. at [phone]. If this radiologist is unavailable, youwill be [...] 09/13/12 1503 Sign by: Florian Valenzuela MD 87-Eel-79334:28 CRE Comments: CALL 8665 WITH RESULTSRESULTS CALLED TO DEBBIE 09/13/12 0801 AURA DIAZ.REPORT READ BACK BY SAME . GFR 105 mL/min (Normal) GFRAA 127 mL/min (Normal) CREAT 0.6 mg/dL (Normal) Range: 0.6-1.0 84-Rzg-91368:23 URINE HANSA CULTURE-JEWELS COL Comments: PATIENT NOT FASTINGPERFORMED BY: LabCoKindred Hospital at WayneSzevkz2891 [facility] [id number] Information: SRC:UR [id number] COUNT (42818) Result 1 NG36 (Normal) Comments: No growth in 36 - 48 hours. Urine Culture,Comprehensive Final report (Normal) 41-Gxk-86526:39 Urinalysis, Office (31772) UA - BILIRUBIN Negative (Normal) UA - BLOOD Non Hemolyzed Trace (Normal) UA - GLUCOSE Negative (Normal) UA - KETONES Negative mg/dL (Normal) UA - LEUKOCYTE ESTERASE Negative (Normal) UA - NITRITE Negative (Normal) UA - PH 6.5 (Normal) UA - PROTEIN Negative mg/dL (Normal) UA - SPECIFIC GRAVITY 1.015 (Normal) URINE UROBILINGN JEWELS TIMED Normal mg/dL (Normal) :35 HgA1C , Office (51583) HgA1C , Office 6.3 % (Normal) Range: 4.6 - 7.1 :35 Blood Glucose , Office (19065) Blood Glucose , Office 143 (Normal) :54 Comp. Metabolic Panel (14) Comments: PATIENT WAS FASTINGPERFORMED BY: CLARITA OffScalelin6370 [facility] [id number] Information: 07/08@830AM 07/09@830AM ALT (SGPT) 11 [iU]/L [...] Creatinine Clearance Comments: PATIENT WAS FASTINGPERFORMED BY: PhoneFusion70 [facility] [id number] Creatinine Clearance 70 mL/min (Abnormal) Range: 88-128 Comments: The above range is based on 1.73 square meter average body surfacearea. Creatinine, Ur 24hr 777.0 {mg/24_hr} (Abnormal) Range: 800.0-1800.0 Creatinine, Urine 37.9 mg/dL (Normal) Range: 15.0-278.0 :54 Lipid Panel With LDL/HDL Comments: PATIENT WAS FASTINGPERFORMED BY: [place] 8546170 [facility] [id number] Ratio LDL/HDL Ratio 2.6 {ratio_units} (Normal) Range: [...] Qn, 24-Hr Comments: PATIENT WAS FASTINGPERFORMED BY: [facility]6370 [facility] [id number] Urine Prot,24hr calculated <30.8 {mg/24_hr} Range: 30.0-150.0 (Normal) Protein,Total,Urine <1.5 mg/dL (Normal) Range: 0.0-15.0 Comments: Verified by repeat analysis TSH 2.550 {uIU/mL} Comments: PATIENT WAS FASTINGPERFORMED BY: [place] 8546170 [facility] [id number] :54 (Normal) Range: 0.450-4.500 Vitamin B12 271 pg/mL (Normal) Comments: PATIENT WAS FASTINGPERFORMED BY: [facility]6370 [facility] [id number] :54 Range: 211-946 3-Uau-696489:08 CBC WITH MANUAL DIFF Comments: PATIENT NOT FASTINGPERFORMED BY: CLARITA LabCoKindred Hospital at WayneOsaqhv0481 [facility] [id number] Information: [id number] (06577) Immature Grans (Abs) 0.0 {x10E3/uL} (Normal) Range: [...] 3.77-5.28 WBC 4.0 {x10E3/uL} (Normal) Range: 4.0-10.5 2-Wwg-564653:01 FECAL OCCULT- Tubes sent home (55604) FECAL OCCULT HGB ASSAY, QUAL, 1-3 SIMULTANEOU [...] Valenzuela M.D.April 30, 2012 at 8:16:04 AM [phone] Signed GP/GP If you are the referring physician and would like to consult with theradiologist who prov ided this interpretation, please contact Mame Mccoy at [phone]. If this radiologist is unavailable, youwill be directed to another radiologist to assist. If you are a patient with a qu estion regarding this report, pleasecontactyour referring physician directly. Professional Interpretation Provided By: Porch, Phone , These documents contain legally protected [...] Florian Valenzuela MD :44 HgA1C , Office (41320) HgA1C , Office 6.3 % (Normal) Range: 4.6 - 7.1 :44 Blood Glucose , Office (40129) Blood Glucose , Office 150 (Normal) Comments: has part of a cinnamon bun for breakfast :52 Microscopic Examination Comments: PATIENT WAS FASTINGPERFORMED BY: LabCoKindred Hospital at WayneWblyar6901 [facility] [id number] Bacteria None seen (Normal) Mucus Threads Present (Normal) Epithelial Cells (non renal) 0-10 {/hpf} (Normal) Range: 0 - 10 RBC 0-3 {/hpf} (Normal) Range: 0 - 3 WBC 0-5 {/hpf} (Normal) Range: 0 - 5 :52 CBC WITH MANUAL DIFF Comments: PATIENT WAS FASTINGPERFORMED BY: [facility] Vuwedr8513 [facility] [id number] Information: [id number] (56661) Immature Grans (Abs) 0.0 {x10E3/uL} (Normal) Range: [...] (Normal) Range: 4.0-10.5 :52 URINALYSIS, W/ MICRO (24649) Comments: PATIENT WAS FASTINGPERFORMED BY: [employer] [facility] [id number] Microscopic Examination See below: (Normal) Nitrite, Urine Negative (Normal) Urobilinogen,Semi-Qn 1.0 mg/dL (Normal) Range: 0.0-1.9 Bilirubin Negative (Normal) Occult Blood Negative (Normal) Ketones Negative (Normal) Glucose Negative (Normal) Protein 2+ (Abnormal) WBC Esterase Negative (Normal) Appearance Clear (Normal) Urine-Color Yellow (Normal) pH 7.0 (Normal) Range: 5.0-7.5 Specific [place] 1.029 (Normal) Range: 1.005-1.030 :52 TSH (82493) Comments: PATIENT WAS FASTINGPERFORMED BY: [place] Onfenl3981 [facility] [id number] TSH 2.060 {uIU/mL} (Normal) Range: 0.450-4.500 :52 METABOLIC PANEL, COMPREHENSIVE Comments: PATIENT WAS FASTINGPERFORMED BY: [employer] [facility] [id number] (89166) ALT (SGPT) 16 [iU]/L (Normal) Range: 0-40 [...] mg/dL (Abnormal) Range: 65-99 :52 LIPID PANEL (58531) Comments: PATIENT WAS FASTINGPERFORMED BY: [facility]6370 [facility] [id number] LDL/HDL Ratio 2.2 {ratio_units} (Normal) Range: 0.0-3.2 [...] RATIO Comments: PATIENT WAS FASTINGPERFORMED BY: [facility] Canees5787 [facility] [id number] (41411) AND (26281) Microalb/Creat Ratio 822.1 {mg/g_creat} (Abnormal) Range: 0.0-30.0 Microalbumin, Urine 844.3 ug/mL (Abnormal) Range: 0.0-17.0 Creatinine, Urine 102.7 mg/dL (Normal) Range: 15.0-278.0 35-Scd-121065:18 HgA1C , Office (60631) HgA1C , Office 6.3 % (Normal) Range: 4.6 - 7.1 04-Gby-488547:16 CHEST WITH CONTRAST Radiology Report See Note [...] radiologist regarding this report, please call our [id number] line @ Dictated on 12/14/11 1033 by Nicolas ARAGON,[facility] on 12/14/11 1438 by ITS IMPORTSign by Nicolas ARAGON,Florian on 12/14/11 1439 Sign by: Florian Valenzuela MD 05-Dec-20119:19 CBC WITH MANUAL DIFF Comments: PATIENT WAS FASTINGPERFORMED BY: LabCoKindred Hospital at WayneRnfgit2688 [facility] [id number] Information: [id number] (23255) Immature Grans (Abs) 0.0 {x10E3/uL} (Normal) Range: [...] PANEL, COMPREHENSIVE Comments: PATIENT WAS FASTINGPERFORMED BY: LabCoKindred Hospital at WayneSmdqpc5335 [facility] [id number] (67211) ALT (SGPT) 14 [iU]/L (Normal) Range: 0-40 [...] mg/dL (Abnormal) Range: 65-99 05-Dec-20119:19 LIPID PANEL (62996) Comments: PATIENT WAS FASTINGPERFORMED BY: FlyCastJoseph Ville 5667770 [facility] [id number]; appt 12-21-11 LDL/HDL Ratio 3.0 {ratio_units} Range: [...] {units} (Normal) Comments: PATIENT NOT FASTINGPERFORMED BY: [employer] Mflnzq7084 [facility] [id number] BY: [place] [id number] 10:24 Range: 0-19 Comments: Negative <20 Weak positive 20 - 39 Moderate positive 40 - 59 Strong positive >59 0-Zdy-134668:24 EBV Panel (79453) Comments: PATIENT NOT FASTINGPERFORMED BY: FlyCast[address] [id number] BY: [place] [id number] Interpretation: SPRCS (Normal) Comments: EBV Interpretation Chart [...] <0.9 Equivocal 0.9 - 1.0 Positive >1.0 5-Eud-967397:24 SED RATE ERYTHROCYTE Comments: PATIENT NOT FASTINGPERFORMED BY: [address] [id number] BY: [address] [id number] (63075) Sedimentation Rate-Westergren 6 mm/h (Normal) Range: 0-40 7-Cut-269192:24 C-REACTIVE PROTEIN (57363) Comments: PATIENT NOT FASTINGPERFORMED BY: [address] [id number] BY: [address] [id number] C-Reactive Protein, Quant 2.1 mg/L (Normal) Range: 0.0-4.9 9-Pcm-916118:24 TSH (29216) Comments: PATIENT NOT FASTINGPERFORMED BY: [place] 8546170 [facility] [id number] BY: [address] [id number] TSH 1.610 {uIU/mL} (Normal) Range: 0.450-4.500 2-Ahk-897332:24 RHEUMATOID FACTOR-QUANT Comments: PATIENT NOT FASTINGPERFORMED BY: [address] [id number] BY: [address] [id number] (22184) RA Latex Turbid. 8.4 {IU/mL} (Normal) Range: 0.0-13.9 4-Iyo-862314:24 [place] (ANTINUCLEAR ANTIBODY) Comments: PATIENT NOT FASTINGPERFORMED BY: [facility]6370 [facility] [id number] BY: [address] [id number] (01511) [place] Direct Negative (Normal) 7-Zuc-069197:24 CBC WITH MANUAL DIFF Comments: PATIENT NOT FASTINGPERFORMED BY: LabCoKindred Hospital at WayneAcgfqz3902 [facility] [id number] BY: LabMelissa [place] 928557 [facility] [id number] Inf ormation: [id number] (29835) Immature Grans (Abs) 0.0 {x10E3/uL} (Normal) Range: [...] 3.80-5.10 WBC 4.6 {x10E3/uL} (Normal) Range: 4.0-10.5 1-Ihw-454094:24 METABOLIC PANEL, Comments: PATIENT NOT FASTINGPERFORMED BY: CB [facility] Yombrt2277 [facility] [id number] BY: BN [facility] Vsgjpyiacy6779 [facility] [id number]; appt 12-21-11 COMPREHENSIVE (63744) ALT (SGPT) 13 [iU]/L (Normal) Range: 0-40 [...] Glucose, Serum 118 mg/dL (Abnormal) Range: 65-99 6-Cks-590811:51 HANSA CULTURE-OTHER (79424) Comments: PATIENT NOT FASTINGPERFORMED BY: CLARITA [facility] Lufmbz2138 [facility] [id number] Information: SRC:AIDAN [id number] Result 1 RRF (Normal) Comments: Routine respiratory vicente Upper Respiratory Culture Final report (Normal) 07-Nov-20119:19 Rapid Strep Test, Office (30299) Rapid Strep Test, Office Negative (Normal) 63-Zba-513918:16 HgA1C , Office (43452) HgA1C , Office 6.1 % (Normal) Range: 4.6 - 7.1 62-Dqn-848922:16 Blood Glucose , Office (00606) Blood Glucose , Office 141 (Normal) 74-Fvc-991787:10 ABDOMEN/PELVIS WITH CONTRAST Radiology Report See Note [...] 08/01/111409 Si gn by: Florian Valenzuela MD 99-Usv-209057:39 CHEST WITH CONTRAST Radiology Report See Note [...] noted, distal end at the level of A9qttzt. Normal osseous structures. There is limited visualization [...] CREATININE RATIO Comments: PATIENT WAS FASTINGPERFORMED BY: [employer]6370 [facility] [id number] (70190) AND (33287) Microalb/Creat Ratio 11.8 {mg/g_creat} (Normal) Range: 0.0-30.0 Microalbumin, Urine 7.3 ug/mL (Normal) Range: 0.0-17.0 Creatinine, Urine 61.9 mg/dL (Normal) Range: 15.0-278.0 :29 LIPID PANEL (77681) Comments: PATIENT WAS FASTINGPERFORMED BY: [employer]70 [facility] MichiganL[facility]rowAt[facility] [id number]; appt 07/25/11 VLDL Cholesterol Peg VLDLCH mg/dL [...] MANUAL DIFF Comments: PATIENT WAS FASTINGPERFORMED BY: [place] Qpdjrw4949 [facility] [id number] Information: [id number] (36445) Immature Grans (Abs) 0.0 {x10E3/uL} (Normal) Range: [...] 3.80-5.10 WBC 5.7 {x10E3/uL} (Normal) Range: 4.0-10.5 98-Vno-814546:29 METABOLIC PANEL, COMPREHENSIVE Comments: PATIENT WAS FASTINGPERFORMED BY: LabCoKindred Hospital at WayneSozobe1241 [facility] [id number] (90174) ALT (SGPT) 12 [iU]/L (Normal) Range: 0-40 [...] Glucose, Serum 120 mg/dL (Abnormal) Range: 65-99 32-Bbp-47974:46 THYROID Radiology Report See Note (Normal) Comments: [...] 1019 Sign by: ___ Florian Valenzuela MD 31-Irv-64606:47 SOFT TISSUE NECK WITH CONTRAST Radiology Report [...] malformation. Normal bilateral parotid glands. 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 Normal bilateral carotid [...] 01/24/11 1017 Sign by: Florian Valenzuela MD 51-Ydl-74491:15 CBC WITH MANUAL DIFF Comments: PATIENT WAS FASTINGPERFORMED BY: LabCoKindred Hospital at WayneKquivv3039 [facility] [id number] Information: [id number] (93053) Immature Grans (Abs) 0.0 {x10E3/uL} (Normal) Range: [...] 3.80-5.10 WBC 7.0 {x10E3/uL} (Normal) Range: 4.0-10.5 98-Xpc-90442:15 METABOLIC PANEL, COMPREHENSIVE Comments: PATIENT WAS FASTINGPERFORMED BY: [facility]6370 [facility] [id number] (32114) ALT (SGPT) 10 [iU]/L (Normal) Range: 0-40 [...] mg/dL (Abnormal) Range: 65-99 :15 LIPID PANEL (44329) Comments: PATIENT WAS FASTINGPERFORMED BY: DNP [employer] [facility] [id number]; has f/u 04/20/11 LDL/HDL Ratio 2.5 {ratio_units} (Normal) Range: 0.0-3.2 LDL Cholesterol Calc 94 mg/dL (Normal) Range: 0-99 VLDL Cholesterol Peg 46 mg/dL (Abnormal) Range: 5-40 HDL Cholesterol 37 mg/dL (Abnormal) Comments: According to ATP-III Guidelines, HDL-C >59 mg/dL is considered anegative risk factor for CHD. Triglycerides 230 mg/dL (Abnormal) Range: 0-149 Cholesterol, Total 177 mg/dL (Normal) Range: 100-199 :15 HgA1C , Office (55341) Comments: PATIENT WAS FASTINGPERFORMED BY: [facility]6370 [facility] [id number] Glycohemoglobin (GHb), Total 7.7 % (Normal) Comments: Diabetic Adult <9.0 Healthy Adult 3.9 - 7.3 (DCCT/NGSP) Current ADA guide lines recommend a treatment goal of <7.0% HgbA1c for diabetic patients, which corresponds to a <9.0% Glycohemoglobin result with this method. :50 Blood Glucose , Office (24397) Blood Glucose , Office 160 (Normal) :48 [...] = 500 mg/dL :33 HgA1C , Office (23897) HgA1C , Office 6.5 % (Normal) Range: 4.6 - 7.1 :33 Blood Glucose , Office (11056) Blood Glucose , Office 154 (Normal) 40-Hup-275342:11 Influenza A, H1N1, RT PCR Comments: PERFORMED BY: [place] [id number] BY: [facility] [id number] Information: SRC:NL Subtype Novel H1N1 by Negative (Normal) PCR Type Influenza A by Negative (Normal) PCR Viral FLUABN (Normal) Comments: PERFORMED BY: [facility] [id number] BY: [facility] [id number] Culture,Rapid,Influenz Comments: Negative:No Influenza A or B detected. a :04 Urinalysis, Office (18160) UA - BILIRUBIN Negative (Normal) UA - BLOOD Negative (Normal) UA - GLUCOSE Negative (Normal) UA - KETONES Negative mg/dL (Normal) UA - LEUKOCYTE ESTERASE Negative (Normal) UA - NITRITE Negative (Normal) UA - PH 6.0 (Normal) UA - PROTEIN Negative mg/dL (Normal) UA - SPECIFIC GRAVITY 1.025 (Normal) URINE UROBILINGN JEWELS TIMED Normal mg/dL (Normal) :59 Vitamin D Hydroxy (00104) Comments: PATIENT WAS FASTINGPERFORMED BY: [facility] Oqmdyf0852 [facility] [id number] Vitamin D, 25-Hydroxy 32.0 ng/mL (Normal) Range: 32.0-100.0 Comments: Recent studies consider the lower limit of 32.0 ng/mL to be athreshold for optimal health.Jose MAYA. J Nutr. 2004;135(2):317-22. 4-:59 METABOLIC PANEL, Comments: PATIENT WAS FASTINGPERFORMED BY: [facility] Ydcebc3196 [facility] [id number] Information: [id number] COMPREHENSIVE (02592) ALT (SGPT) 9 [iU]/L (Normal) Range: 0-40 [...] mg/dL (Abnormal) Range: 65-99 :59 LIPID PANEL (82036) Comments: PATIENT WAS FASTINGPERFORMED BY: DNP [employer] [facility] [id number] LDL Cholesterol Calc 87 mg/dL (Normal) Range: [...] MANUAL DIFF Comments: PATIENT WAS FASTINGPERFORMED BY: [employer] [id number] Information: ADD [id number] AND DRAW FEE [id number] (43658) Immature Grans (Abs) 0.0 {x10E3/uL} (Normal) Range: [...] CREATININE RATIO Comments: PATIENT WAS FASTINGPERFORMED BY: [employer]70 [facility] [id number] (42338) AND (35303) Creatinine, Urine 87.5 mg/dL (Normal) Range: 15.0-278.0 Microalb/Creat Ratio 4.5 {mg/g_creat} (Normal) Range: 0.0-30.0 Microalbumin, Urine 3.9 ug/mL (Normal) Range: 0.0-17.0 :57 METABOLIC PANEL, COMPREHENSIVE Comments: PATIENT WAS FASTINGPERFORMED BY: [employer]70 [facility] [id number] (80556) ALT (SGPT) 12 [iU]/L (Normal) Range: 0-40 [...] mg/dL (Abnormal) Range: 65-99 :57 LIPID PANEL (60168) Comments: PATIENT WAS FASTINGPERFORMED BY: [facility]CoKind[facility] Hospital at WayneIzbtke3610 [facility] [id number] LDL Cholesterol Calc 138 mg/dL (Abnormal) Range: 0-99 LDL/HDL Ratio 2.9 {ratio_units} (Normal) Range: 0.0-3.2 HDL Cholesterol 47 mg/dL (Normal) Comments: According to ATP-III Guidelines, HDL-C >59 mg/dL is considered anegative risk factor for CHD. VLDL Cholesterol Peg 29 mg/dL (Normal) Range: 5-40 Cholesterol, Total 214 mg/dL (Abnormal) Range: 100-199 Triglycerides 147 mg/dL (Normal) Range: 0-149 :05 HgA1C , Office (69360) HgA1C , Office 6.5 % (Normal) Range: 4.6 - 7.1 15-Sit-16266:05 Blood Glucose , Office (84785) Blood Glucose , Office 140 (Normal) :35 MICROALBUMIN: CREATININE RATIO Comments: PATIENT WAS FASTINGPERFORMED BY: [place] Nonewx9219 [facility] [id number] (21204) AND (47785) Creatinine, Urine 94.9 mg/dL (Normal) Range: 15.0-278.0 Microalb/Creat Ratio 10.7 {mg/g_creat} (Normal) Range: 0.0-30.0 Microalbumin, Urine 10.2 ug/mL (Normal) Range: 0.0-17.0 :35 CBC WITH MANUAL DIFF Comments: PATIENT WAS FASTINGPERFORMED BY: [employer]6370 [facility] [id number] Information: [id number] (63449) Baso (Absolute) 0.0 {x10E3/uL} (Normal) Range: 0.0-0.2 [...] PANEL, COMPREHENSIVE Comments: PATIENT WAS FASTINGPERFORMED BY: [facility]CoKindred Hospital at WayneGncdwo2626 [facility] [id number] (58014) ALT (SGPT) 12 [iU]/L (Normal) Range: 0-40 [...] mg/dL (Abnormal) Range: 65-99 :35 LIPID PANEL (42295) Comments: PATIENT WAS FASTINGPERFORMED BY: [facility]CoKindred Hospital at WayneLkietr4112 [facility] [id number] LDL Cholesterol Calc 103 mg/dL (Abnormal) Range: 0-99 LDL/HDL Ratio 3.0 {ratio_units} (Normal) Range: 0.0-3.2 HDL Cholesterol 34 mg/dL (Abnormal) Comments: According to ATP-III Guidelines, HDL-C >59 mg/dL is considered anegative risk factor for CHD. VLDL Cholesterol Peg 38 mg/dL (Normal) Range: 5-40 Cholesterol, Total 175 mg/dL (Normal) Range: 100-199 Triglycerides 190 mg/dL (Abnormal) Range: 0-149 :31 HgA1C , Office (95625) HgA1C , Office 6.2 % (Normal) Range: 4.6 - 7.1 :31 Blood Glucose , Office (66990) Blood Glucose , Office 113 (Normal) :03 BILAT SCRN DIGITAL & CAD Radiology Report See Note (Normal) Comments: Exam Number: [id number] MAMMOGRAPHY - BILATERAL SCREENING INDICATION:Routine annual screening [...] of attaching a ResultCode to this exam.ADDENDUM: [id number] HPBI/MDS Reported By: BRIAN JIMENEZ M.D. 63-Rwy-88423:02 DEXA BONE DENSITY STUDY (HP) Radiology Report See Note (Normal) Comments: Exam Number: [id number] CLINICAL:Assess bone density EXAMINATION:DUAL ENERGY X-RAY ABSORPTIOMETRY / DEXA. TECHNIQUE:Bone Density Measurements (BMD) of left hip and left forearm wereobtained using a [employer] dual energy scanner. COMPARISON:[facility] for [facility]. FINDINGS: Left [...] NIH Osteoporosis and Related Bone Diseases http://www.osteo.org2. Contact Center Team Lead ational Society for Clinical Densitometryhttp://www.iscd.org3. National Osteoporosis Foundation http://www.nof.org Reported By: NELLY LINCOLN M.D. :11 HgA1C , Office (13256) HgA1C , Office 6.2 % (Normal) Range: 4.6 - 7.1 :11 Blood Glucose , Office (93795) Blood Glucose , Office 186 (Normal) :25 TSH (20088) Comments: PATIENT WAS FASTINGPERFORMED BY: LabCoKindred Hospital at WayneLenuay3812 [facility] [id number] TSH 2.340 {uIU/mL} (Normal) Range: 0.450-4.500 :25 METABOLIC PANEL, COMPREHENSIVE Comments: PATIENT WAS FASTINGPERFORMED BY: LabDotted BlockKindred Hospital at WayneHchkod6776 [facility] [id number] (43102) ALT (SGPT) 10 [iU]/L (Normal) Range: 0-40 [...] Glucose, Serum 130 mg/dL (Abnormal) Range: 65-99 73-Vzi-73994:25 CBC WITH MANUAL DIFF Comments: PATIENT WAS FASTINGPERFORMED BY: LabCoKindred Hospital at WayneSrneod0930 [facility] [id number] Information: ADD DRAW FEE [id number] AND J0 5260 (52149) Baso (Absolute) 0.0 {x10E3/uL} (Normal) Range: 0.0-0.2 [...] {x10E3/uL} (Normal) Range: 4.0-10.5 :25 LIPID PANEL (37781) Comments: PATIENT WAS FASTINGPERFORMED BY: [facility]6370 [facility] [id number] LDL/HDL Ratio 2.6 {ratio_units} (Normal) Range: 0.0-3.2 Cholesterol, Total 183 mg/dL (Normal) Range: 100-199 HDL Cholesterol 34 mg/dL (Abnormal) Comments: According to ATP-III Guidelines, HDL-C >59 mg/dL is considered anegative risk factor for CHD. LDL Cholesterol Calc 90 mg/dL (Normal) Range: 0-99 Triglycerides 295 mg/dL (Abnormal) Range: 0-149 VLDL Cholesterol Peg 59 mg/dL (Abnormal) Range: 5-40 :02 HgA1C , Office (48463) HgA1C , Office 6.2 % (Normal) Range: 4.6 - 7.1 :02 Blood Glucose , Office (75170) Blood Glucose , Office 152 (Normal) :02 HEPATIC FUNCTION PANEL Comments: PATIENT WAS FASTINGPERFORMED BY: [place] 8546170 [facility] [id number] (46718) Alkaline Phosphatase, S 63 [iU]/L (Normal) Range: 25-165 ALT (SGPT) 13 [iU]/L (Normal) Range: 0-40 AST (SGOT) 14 [iU]/L (Normal) Range: 0-40 Bilirubin, Direct 0.10 mg/dL (Normal) Range: 0.00-0.40 Bilirubin, Total 0.4 mg/dL (Normal) Range: 0.1-1.2 Albumin, Serum 4.6 g/dL (Normal) Range: 3.6-4.8 Protein, Total, Serum 7.0 g/dL (Normal) Range: 6.0-8.5 :02 LIPID PANEL (94596) Comments: PATIENT WAS FASTINGPERFORMED BY: [facility] [id number] LDL Cholesterol Calc 114 mg/dL (Abnormal) Range: 0-99 LDL/HDL Ratio 3.6 {ratio_units} (Abnormal) Range: 0.0-3.2 HDL Cholesterol 32 mg/dL (Abnormal) Comments: According to ATP-III Guidelines, HDL-C >59 mg/dL is considered anegative risk factor for CHD. Triglycerides 319 mg/dL (Abnormal) Range: 0-149 VLDL Cholesterol Peg 64 mg/dL (Abnormal) Range: 5-40 Cholesterol, Total 210 mg/dL (Abnormal) Range: 100-199 :45 HgA1C , Office (79851) HgA1C , Office 6.2 % (Normal) Range: 4.6 - 7.1 :45 Blood Glucose , Office (94968) Blood Glucose , Office 193 (Normal) :34 MICROALBUMIN: CREATININE RATIO Comments: PATIENT WAS FASTINGPERFORMED BY: CLARITA [employer]6370 [facility] [id number] (78781) AND (98477) Creatinine, Urine 126.3 mg/dL (Normal) Range: 15.0-278.0 Microalb/Creat Ratio 7.6 {mg/g_creat} (Normal) Range: 0.0-30.0 Microalbumin, Urine 9.6 ug/mL (Normal) Range: 0.0-17.0 :34 METABOLIC PANEL, COMPREHENSIVE Comments: PATIENT WAS FASTINGClinical Information: ADD [id number] BY: [employer]70 [facility] [id number] (75000) A/G Ratio 1.7 (Normal) Range: 1.1-2.5 Albumin, [...] FUNCTION PANEL Comments: PATIENT WAS FASTINGPERFORMED BY: [employer]6370 [facility] [id number] (75594) Bilirubin, Direct 0.08 mg/dL (Normal) Range: 0.00-0.40 :34 LIPID PANEL (01182) Comments: PATIENT WAS FASTINGPERFORMED BY: [employer] Systemslin6370 [facility] [id number] Cholesterol, Total 186 mg/dL (Normal) Range: 100-199 HDL Cholesterol 38 mg/dL (Abnormal) Comments: According to ATP-III Guidelines, HDL-C >59 mg/dL is considered anegative risk factor for CHD. LDL Cholesterol Calc 102 mg/dL (Abnormal) Range: 0-99 LDL/HDL Ratio 2.7 {ratio_units} (Normal) Range: 0.0-3.2 Triglycerides 232 mg/dL (Abnormal) Range: 0-149 VLDL Cholesterol Peg 46 mg/dL (Abnormal) Range: 5-40 80-Kjz-164473:36 HgA1C , Office (81365) HgA1C , Office 6.3 % (Normal) Range: 4.6 - 7.1 39-Gws-090797:36 Blood Glucose , Office (37827) Blood Glucose , Office 129 (Normal) 1-Wzr-503945:12 BILAT SCRN DIGITAL & CAD Radiology Report See Note (Normal) Comments: Exam Number: [id number] MAMMOGRAM, BILATERAL SCREENING DIGITAL AND CAD HISTORY: [...] 1992 (MQSA). The mammograms werealso examined w [facility] computer-aided detection software ([employer], [employer] Reported By: BRIAN JIMENEZ M.D. 66-Vkz-779406:57 HgA1C , Office (83943) HgA1C , Office 6.3 % (Normal) Range: 4.6 - 7.1 61-Qxx-597715:57 Blood Glucose , Office (85668) Blood Glucose , Office 111 (Normal) 81-Jbd-56020:40 COMP METABOLIC A/G 1.1 {RATIO} (Normal) Range: [...] for patient's is the eGFRmultiplied by 1.212. [facility] Laboratory uses the abbreviated Modification of [...] Disease W/O Kidney Disease>/= 90 Stage One Owqkty07 - 89 Stage Two Suspect Decreased GFR30 [...] T PROT 7.2 g/dL (Normal) Range: 6.4-8.2 65-Xey-22752:40 D BILI 0.07 mg/dL (Normal) Range: 0.00-0.30 [...] (Normal) Range: 5-40 :30 HgA1C , Office (57840) HgA1C , Office 6.2 % (Normal) Range: 4.6 - 7.1 :30 Blood Glucose , Office (77322) Blood Glucose , Office 167 (Normal) :33 [...] (Normal) Range: 211-911 :51 HgA1C , Office (87055) HgA1C , Office 5.9 % (Normal) Range: 4.6 - 7.1 :51 Blood Glucose , Office (30508) Blood Glucose , Office 113 (Normal) :49 [...] >240 mg/dL High Risk :01 Urinalysis, Office (20591) UA - BILIRUBIN Negative (Normal) UA - [...] Comments: GLU,2HPPG 75gm GLUC PPG GLUP from 0603:F38591Y. 34-Lfi-947621:44 CHEST, PA AND LATERAL Radiology Report See Note (Normal) Comments: Exam Number: [id number] PA AND LATERAL CHEST HISTORY Being done for chest pain. FINDINGSCardiac configuration is upper limits of normal to mildly enlarged.There is mild elevation, left hemid iaphragm. No acute infiltrate,effusion, or pneumothorax is identified. There is moderate spurformation noted in the lower dorsal spine. IMPRESSION1. A number of chronic changes.2. No acute infiltrate. Reported By: COREY MERCER M.D. 19-Sut-319204:20 URINE HANSA CULTURE-IDENTIFICATN Comments: PATIENT NOT FASTINGClinical Information: ADD [id number] PERFORMED BY: [facility]6370 [facility] [id number] (60112) Antimicrobial MIHEAD (Normal) Comments: S = Susceptible; [...] mL (Normal) Urine Final report Culture,Comprehensive (Normal) 77-Jzj-07666:00 CBC With Differential/Platelet Comments: PATIENT NOT FASTINGPERFORMED BY: [facility]6370 [facility] [id number] Baso (Absolute) 0.1 {x10E3/uL} (Normal) Range: 0.0-0.2 [...] 11.7-15.0 WBC 6.0 {x10E3/uL} (Normal) Range: 4.0-10.5 82-Iar-83361:00 Comp. Metabolic Panel (14) Comments: PATIENT NOT FASTINGPERFORMED BY: LabCoKindred Hospital at WayneFiitpt9227 [facility] [id number] A/G Ratio 1.7 (Normal) Range: 1.1-2.5 Albumin, [...] Serum 116 mg/dL (Abnormal) Range: 65-99 If -Bahraini >60 mL/min (Normal) Range: 60-128 Comments: Note: [...] (Normal) Range: 0.34-4.82 :33 HgA1C , Office (45498) HgA1C , Office 5.2 % (Normal) Range: 4.6 - 7.1 :33 Blood Glucose , Office (52025) Blood Glucose , Office 172 (Normal) :08 FEMUR,2 VIEWS Radiology Report See Note (Normal) Comments: Exam Number: [id number] AP AND LATERAL LEFT TIBIA/FIBULA. HISTORYBeing done [...] Report See Note (Normal) Comments: Exam Number: [id number] AP AND LATERAL LEFT TIBIA/FIBULA. HISTORYBeing done [...] (Normal) Range: 0.34-4.82 :53 HgA1C , Office (21914) Comments: [facility] HgA1C , Office 5.3 % (Normal) Range: 4.6 - 7.1 :53 Blood Glucose , Office (96986) Comments: [facility] Blood Glucose , Office 94 (Normal) [...] Range: 6.4-8.2 :18 Blood Glucose , Office (99618) Blood Glucose , Office 5.6 (Normal) :18 HgA1C , Office (23423) HgA1C , Office 142 % (Abnormal) Range: 4.6 - 7.1 28-Byr-753124:40 FECAL WBC See Note (Normal) Comments: Precautions*: [...] :00 AMIE 25 U/L (Normal) Comments: COMMENTS: [facility] [address] DR Webster*: NOT APPLICABLE Range: 25-115 :00 CBCD Comments: COMMENTS: [facility] [address] DR Webster*: NOT APPLICABLE BASO% 0.1 [...] 11.6-14.6 WBC 5.3 K/mm3 (Normal) Range: 4.4-11.0 87-Dot-495571:00 COMP METABOLIC Comments: COMMENTS: BED 7 FASTPrecautions*: [...] U/L (Normal) Comments: COMMENTS: BED 7 DR Webster*: NOT APPLICABLE Range: 114-286 :46 LIVER ALB [...] mg/dL VLDL 50 mg/dL (Abnormal) Range: 5-40 6-Lxs-884513:02 URINALYSIS (48801) URINALYSIS Comments: uNABLE TO PUT RESULTS IN CORRECTLY- OVJBFDE-ZMYTQBNWXOFB-WSDYNWITWLZ-NEGS.G.-1.129ARIXB-XACICYASUT-7.5WZZUHJR-ATXMPRGNWUU-7.6VOPQUQMO-JUTSSOAMXOBYXNXMCH-GSBFT (Normal) 7-Vhs-973472:09 HgA1C , Office (43956) HgA1C , Office 5.4 % (Normal) Range: 4.6 - 7.1 4-Czq-582348:09 Blood Glucose , Office (74446) Blood Glucose , Office 161 (Normal) Plan [...] II, controlled, with no complications CAD in [place] artery : Reviewed Shoe Folder Letter Indication: CAD in [place] artery Mixed hyperlipidemia : Cholesterol mgmt Indication: [...] B12 shots montly Indication: Macrocytosis CAD in [place] artery : Reviewed Shoe Folder Letter Indication: CAD in [place] artery CAD in [place] artery : Continue Current Prescription(s) Indication: CAD in [place] artery Diabetes mellitus type 2, uncontrolled, without [...] Pulmonary hypertension, moderate to severe : Reviewed Shoe Folder Letter Indication: Pulmonary hypertension, moderate to severe [...] S/P laminectomy with spinal fusion : Reviewed Shoe Folder Letter Indication: S/P laminectomy with spinal fusion Macrocytosis without anemia : Reviewed Lab Indication: Macrocytosis without anemia Diabetes mellitus type II, controlled, with no complications : Reviewed Diagnostic Tests Indication: Diabetes mellitus type II, controlled, with no complications S/P laminectomy with spinal fusion : Reviewed Shoe Folder Letter Indication: S/P laminectomy with spinal fusion [...] pneumonia) CAP (community acquired pneumonia) : Reviewed Shoe Folder Letter Indication: CAP (community acquired pneumonia) Sinusitis, bacterial : Eprescribed prescriptions (G8553) Indication: Sinusitis, bacterial Pulmonary hypertension, moderate to severe : Reviewed Diagnostic Tests Indication: Pulmonary hypertension, moderate to severe Nonsmoker : Eprescribed prescriptions (G8553) Indication: Nonsmoker Bronchitis : Reviewed Diagnostic Tests Indication: Bronchitis Bronchitis : Reviewed Shoe Folder Letter Indication: Bronchitis Bronchitis : *Antibiotic Usage [...] : FOLLOW UP IN 3 DAYS with [facility] Indication: EDEMA, NOS Benign paroxysmal positional vertigo : Reviewed Shoe Folder Letter Indication: Benign paroxysmal positional vertigo Acute [...] MONTHS Indication: Mixed hyperlipidemia Planned Observations TSH (85950)Indication: Diabetes mellitus type 2, uncontrolled, without complications On: 9-Unq-724889:42 Request URINALYSIS, W/ MICRO (29715)Indication: Diabetes mellitus type 2, uncontrolled, without complications On: 6-Fuu-282399:42 Request MICROALBUMIN: CREATININE RATIO (03367) AND (47484)Indication: Diabetes mellitus type 2, uncontrolled, without complications On: :42 Request METABOLIC PANEL, COMPREHENSIVE (69063)Indication: Hypertensive heart disease without heart failure On: :42 Request LIPID PANEL (76471)Indication: Mixed hyperlipidemia On: :42 Request CBC W/AUTO DIFF WBC (84448)Indication: Hypertensive heart disease without heart failure On: :42 Request LIPID PANEL (65095)Indication: Diabetes mellitus type 2, uncontrolled, without complications On: 4-Aju-483675:25 Request CBC WITH MANUAL DIFF (06655)Indication: Elevated platelet count On: 11-Aug-20178:11 Request LIPASE (54954)Indication: Flu-like symptoms On: 3-Kak-165659:53 Request Comments: stat POTASSIUM SERUM (36994)Indication: Hypokalemia On: 46-Zqa-029455:40 Request MAGNESIUM (37732)Indication: Hypomagnesemia On: 75-Yyg-937449:40 Request Renal function Panel (65600)Indication: Hypokalemia On: 05-Tlq-722962:48 Request POTASSIUM SERUM (54553)Indication: Hypokalemia (Renamed from Decreased potassium in the blood) On: :06 Request POTASSIUM SERUM (72818)Indication: Hypokalemia (Renamed from Decreased potassium in the blood) On: 39-Hhc-533178:55 Request POTASSIUM SERUM (78829)Indication: Hypokalemia On: 4-Wcq-537547:22 Request MAGNESIUM (93005)Indication: Hypokalemia On: 6-Vhg-085232:21 Request URINE HANSA CULTURE-JEWELS COL COUNT (05747)Indication: UTI (urinary tract infection), bacterial On: :54 Request MAGNESIUM (19333)Indication: Abdominal pain On: 42-Lpa-953674:45 Request Comments: do in 3 weeks CALCIFEDIOL (35072)Indication: Vitamin D deficiency On: 46-Iwp-037303:14 Request LIPID PANEL (66638)Indication: Mixed hyperlipidemia On: 81-Cvd-733627:13 Request VITAMIN B12 AND FOLATES (78713)Indication: B12 deficiency anemia On: 25-Qoi-102789:13 Request TSH (THYROID STIMULATING HORMONE) (28961)Indication: Thyroid Nodule On: 08-Qpt-443269:13 Request METABOLIC PANEL, COMPREHENSIVE (68313)Indication: Mixed hyperlipidemia On: 51-Rru-982919:13 Request CBC WITH MANUAL DIFF (61311)Indication: Hypertensive heart disease without heart failure On: 62-Cvl-739910:13 Request MICROALBUMIN: CREATININE RATIO (89657) AND (94736)Indication: Hypertensive heart disease without heart failure On: 00-Nml-915460:13 Request MYOGLOBIN (02968)Indication: Sweating abnormality On: 53-Wuk-168665:11 Request CPK MB FRACTION (65049)Indication: Sweating abnormality On: 31-Hds-829171:11 Request ASSAY, TROPONIN, QUANTITATIVE (aka Troponin I) (13859)Indication: Sweating abnormality On: 10-Kea-484634:11 Request METABOLIC PANEL, BASIC (09037)Indication: Hypokalemia (Renamed from Decreased potassium in the blood) On: 93-Ans-778427:16 Request PARATHORMONE (10309)Indication: Hypocalcemia On: 21-Tls-669237:23 Request Magnesium (95228)Indication: Hypokalemia (Renamed from Decreased potassium in the blood) On: 62-Gbg-530280:22 Request CALCIUM, IONIZED (30181)Indication: Hypocalcemia On: 93-Cnq-070519:21 Request VITAMIN B12 AND FOLATES (08761)Indication: Macrocytosis without anemia On: 21-Dys-399903:39 Request SMEAR+INTERP FLUOR STAIN (20498)Indication: Macrocytosis without anemia On: 42-Xsj-054468:37 Request MICROALBUMIN: CREATININE RATIO (53036) AND (73468)Indication: Hypertensive heart disease without heart failure On: 07-Rxc-987398:16 Request CBC W/AUTO DIFF WBC (43444)Indication: Hypertensive heart disease without heart failure On: 58-Uvr-125098:16 Request METABOLIC PANEL, COMPREHENSIVE (87618)Indication: Hypertensive heart disease without heart failure On: 84-Oie-273025:16 Request LIPID PANEL (25918)Indication: Mixed hyperlipidemia On: 21-Nvl-347210:16 Request Vitamin D Hydroxy (51918)Indication: Vitamin D deficiency On: 10-Vpc-745163:15 Request VITAMIN B-12 (CYANOCOBALAMIN) (92534)Indication: B12 deficiency anemia On: 85-Zuz-872209:15 Request METABOLIC PANEL, COMPREHENSIVE (90245)Indication: Fatigue On: :07 Request LIPID PANEL (28836)Indication: Mixed hyperlipidemia On: :07 Request VITAMIN B-12 (CYANOCOBALAMIN) (93994)Indication: B12 deficiency anemia On: :07 Request CBC (AUTO) (31970)Indication: B12 deficiency anemia On: :07 Request Vitamin D Hydroxy (79008)Indication: Vitamin D deficiency On: :06 Request HgA1C , Office (75836)Indication: Diabetes mellitus type II, controlled, with no complications On: :55 Request CBC, PLATELETS & MANUAL DIFF (64552)Indication: Hypokalemia (Renamed from Decreased potassium in the blood) On: 8-Ybl-350242:08 Request Comments: recheck before 11-07-14 MICROALBUMIN: CREATININE RATIO (99437) AND (39051)Indication: Proteinuria On: 56-Jtn-48151:49 Request VITAMIN B-12 (CYANOCOBALAMIN) (37036)Indication: B12 deficiency anemia On: :56 Request Vitamin D Hydroxy (05075)Indication: Vitamin D deficiency On: :56 Request CBC WITH MANUAL DIFF (28432)Indication: B12 deficiency anemia On: :55 Request METABOLIC PANEL, COMPREHENSIVE (52845)Indication: Hypertensive heart disease without heart failure On: :55 Request LIPID PANEL (14701)Indication: Mixed hyperlipidemia On: :55 Request LIPID PANEL (86947)Indication: Mixed hyperlipidemia On: :31 Request TSH (52851)Indication: Thyroid Nodule On: :31 Request MICROALBUMIN: CREATININE RATIO (95177) AND (47582)Indication: Diabetes mellitus type II, controlled, with no complications On: 04-Jun-20138:31 Request METABOLIC PANEL, COMPREHENSIVE (35364)Indication: Diabetes mellitus type II, controlled, with no complications On: :31 Request URINALYSIS, W/ MICRO (37142)Indication: Proteinuria On: :30 Request Vitamin D Hydroxy (20347)Indication: Vitamin D deficiency On: :30 Request CBC, PLATELETS & AUT DIFF (11455)Indication: B12 deficiency anemia On: :29 Request VITAMIN B-12 (CYANOCOBALAMIN) (23377)Indication: B12 deficiency anemia On: :29 Request HgA1C , Office (20806)Indication: Diabetes mellitus type II, controlled, with no complications On: :03 Request TSH ([id number])Indication: Thyroid Nodule On: :39 Request LIPID PANEL (04955)Indication: Mixed hyperlipidemia On: :38 Request CBC WITH MANUAL DIFF ([id number])Indication: Diabetes mellitus type II, controlled, with no complications On: :38 Request METABOLIC PANEL, COMPREHENSIVE (03488)Indication: Diabetes mellitus type II, controlled, with no complications On: :38 Request Vitamin D Hydroxy (06106)Indication: Vitamin D deficiency On: :22 Request CBC, PLATELETS & AUT DIFF ([id number])Indication: B12 deficiency anemia On: :22 Request VITAMIN B-12 (CYANOCOBALAMIN) (57801)Indication: B12 deficiency anemia On: 60-Glt-94515:22 Request CBC WITH MANUAL DIFF ([id number])Indication: Diabetes mellitus type II, controlled, with no complications On: :12 Request METABOLIC PANEL, COMPREHENSIVE (55342)Indication: Diabetes mellitus type II, controlled, with no complications On: 37-Idd-82558:12 Request HEPATIC FUNCTION PANEL (70191)Indication: Mixed hyperlipidemia On: 28-Ebu-27151:10 Request LIPID PANEL (28499)Indication: Mixed hyperlipidemia On: 04-Vkw-16459:10 Request VITAMIN B-12 (CYANOCOBALAMIN) (09011)Indication: B12 deficiency anemia On: :02 Request TSH ([id number])Indication: Dysthymic disorder On: 73-Qel-905465:17 Request CREATININE CLEARANCE (95290)Indication: Proteinuria On: 85-Kfi-418955:15 Request 24 hour urine for Protein (06338)Indication: Proteinuria On: 92-Kjs-423313:15 Request VITAMIN B-12 (CYANOCOBALAMIN) (45825)Indication: B12 deficiency anemia On: 13-Ptj-314670:15 Request CCP ANTIBODY ([id number])Indication: Pain in unspecified joint On: 07-Nov-20119:47 Request LIPID PANEL (72276)Indication: Mixed hyperlipidemia On: 04-Odp-227852:45 Request OVA & PARASITE DIR SMEAR (52972)Indication: Diarrhea On: :52 Request LEUKOCYTE COUNT, FECAL (79503)Indication: Diarrhea On: :52 Request Clostridium difficile Toxin A+B, EIA (27171)Indication: Diarrhea On: :52 Request HANSA CULTURE-STOOL (81039)Indication: Diarrhea On: :52 Request CBC WITH MANUAL DIFF ([id number])Indication: Hypertensive heart disease without heart failure On: 48-Otr-664704:11 Request METABOLIC PANEL, COMPREHENSIVE ([id number])Indication: Hypertensive heart disease without heart failure On: 50-Prk-097074:11 Request LIPID PANEL (39103)Indication: Mixed hyperlipidemia On: 58-Jmu-457994:11 Request Influenza B Ag (34119)Indication: Myalgia and myositis On: :06 Request Influenza A Ag (34542)Indication: Myalgia and myositis On: 91-Bpn-11564:06 Request METABOLIC PANEL, COMPREHENSIVE (54040)Indication: Uncomplicated herpes simplex On: 17-Pze-341946:13 Request MICROALBUMIN: CREATININE RATIO (33308) AND ([id number])Indication: Abnormal glucose tolerance test On: :32 Request METABOLIC PANEL, COMPREHENSIVE (49293)Indication: Hypertensive heart disease without heart failure On: :32 Request HEPATIC FUNCTION PANEL (05003)Indication: Mixed hyperlipidemia On: :31 Request LIPID PANEL (53734)Indication: Mixed hyperlipidemia On: :31 Request TSH (12107)Indication: Abnormal glucose tolerance test On: 85-Tyv-007556:19 Request LIPID PANEL (48118)Indication: Mixed hyperlipidemia On: 65-Mbc-348955:15 Request HEPATIC FUNCTION PANEL ([id number])Indication: Mixed hyperlipidemia On: 27-Wmn-329018:15 Request METABOLIC PANEL, COMPREHENSIVE (94501)Indication: Hypertensive heart disease without heart failure On: :56 Request HEPATIC FUNCTION PANEL (38711)Indication: Mixed hyperlipidemia On: :56 Request LIPID PANEL ([id number])Indication: Mixed hyperlipidemia On: :56 Request MICROALBUMIN: CREATININE RATIO (09052) AND (18663)Indication: Abnormal glucose tolerance test On: :30 Request CBC WITH MANUAL DIFF ([id number])Indication: Abnormal glucose tolerance test On: :30 Request VITAMIN B-12 (CYANOCOBALAMIN) ([id number])Indication: Tinnitus, unspecified laterality On: :24 Request METABOLIC PANEL, COMPREHENSIVE (30765)Indication: Hypertensive heart disease without heart failure On: :24 Request LIPID PANEL (25115)Indication: Mixed hyperlipidemia On: :24 Request URINALYSIS W/O MICRO ([id number])Indication: Hypertensive heart disease without heart failure On: 10-Zvw-066664:12 Request TSH ([id number])Indication: Hypertensive heart disease without heart failure On: 75-Jae-452498:12 Request CBC WITH MANUAL DIFF ([id number])Indication: Hypertensive heart disease without heart failure On: 47-Yxv-925475:12 Request METABOLIC PANEL, COMPREHENSIVE ([id number])Indication: Hypertensive heart disease without heart failure On: 00-Xjs-749234:12 Request LIPID PANEL ([id number])Indication: Mixed hyperlipidemia On: 96-Juq-779980:12 Request CBC with manual diff (10193)Indication: Pre-operative examination On: 15-Xjt-846238:30 Request Metabolic Panel, Comprehensive (08365)Indication: Pre-operative examination On: 59-Wby-690712:30 Request Urinalysis, Office (02175)Indication: Pre-operative examination On: 38-Uuw-374867:29 Request Lipid Panel (51623)Indication: Mixed hyperlipidemia On: 09-Zuw-712325:52 Request Comments: in three months (approximately) TSH (89124)Indication: Hypertensive heart disease without heart failure On: 57-Fqf-08323:52 Request MICROALBUMIN URINE QUANT (19743)Indication: Hypertensive heart disease without heart failure On: :52 Request METABOLIC PANEL, COMPREHENSIVE (94433)Indication: Hypertensive heart disease without heart failure On: :52 Request CBC WITH MANUAL DIFF ([id number])Indication: Hypertensive heart disease without heart failure On: 53-Rwl-80406:52 Request HEPATIC FUNCTION PANEL (20404)Indication: Mixed hyperlipidemia On: :52 Request LIPID PANEL (55870)Indication: Mixed hyperlipidemia On: :52 Request HEPATIC FUNCTION PANEL (95114)Indication: Mixed hyperlipidemia On: :54 Request LIPID PANEL (57546)Indication: Mixed hyperlipidemia On: :54 Request TSH ([id number])Indication: pruritis On: :37 Request METABOLIC PANEL, COMPREHENSIVE (67851)Indication: pruritis On: :37 Request CBC WITH MANUAL DIFF ([id number])Indication: pruritis On: :37 Request LIPID PANEL (89856)Indication: Mixed hyperlipidemia On: :18 Request HEPATIC FUNCTION PANEL (04276)Indication: Mixed hyperlipidemia On: :18 Request HEPATIC FUNCTION PANEL (90647)Indication: Mixed hyperlipidemia On: :14 Request LIPID PANEL (95134)Indication: Mixed hyperlipidemia On: :14 Request Comments: 2mos Planned Encounters Medical; 3 Month FU - On: 24-Aug-2018 7:00 [facility] Margarita Drake DO, DO, Kathleen Planned Procedures ELECTROCARDIOGRAM, COMPLETE (ECG) On: 23-May-2018 Intent (56385)By: Margarita Drake DO Comments: sinus favio no acute chg Margarita GALARZA B 12 Injection, 1000 mcg (J3420)By: On: 23-May-2018 Intent Margarita Drake DO, DO, Comments: b12 1,000mcg/ml 1ml given L deltoid lot#[id number] exp: jg Margarita B 12 Injection, 1000 mcg (J3420)By: On: 26-Mar-2018 Intent Marlyn Roberts LPN Comments: [id number] dltdIMas NATIONAL SECRETARY B 12 Injection, 1000 mcg (J3420)By: On: 19-Feb-2018 Intent Sanjay DO, Margarita Albrechtradha GALARZA, Comments: vitamin b12 1000mcg injectionlot: [id number]: 06/2019L DELT IMpt tolerated well Margarita B 12 Injection, 1000 mcg (J3420)By: On: 07-Dec-2017 Intent Rebeca Drake DOhleen Sanjay DO, Comments: 1 ml given lt arm lot [id number] exp 01/20 Margarita B 12 Injection, 1000 mcg (J3420)By: On: 10-Nov-2017 Intent Rebeca Drake DOhleen Sanjay DO, Margarita CHEST XRAY, PA & LATERAL ([id number])By: On: 26-Sep-2017 Intent Allyn Manley Aerosol Treatment (93151)By: Khanh On: 13-Sep-2017 Intent Ann Marie MCDANIEL Aerosol Treatment (48818)By: Vineet, On: 07-Sep-2017 Intent Allyn Comments: Lungs clear after aerosol treatment. B 12 Injection, 1000 mcg (J3420)By: On: 15-Aug-2017 Intent Margarita Drake DO, DO, Comments: vitamin b12 1000mcg injectionlot: [id number]: 10/2018L DELT IMpt tolerated wellAD NATIONAL SECRETARY Margarita INFUSION, NORMAL SALINE SOLUTION , On: 10-Aug-2017 Intent 1000 CC (Special Coverage Instructions Apply. See MCM: 2048) (J7030)By: Libby Mai DO Toradol Injection, 30 mg (J1885)By: On: 09-Aug-2017 Intent Libby Mai DO Comments: toradol 30mg IV push -per dr. mailot: [id number]: 11/2017IV push in 23g in R ACpt tolerated well. AD NATIONAL SECRETARY INFUSION, NORMAL SALINE SOLUTION , On: 09-Aug-2017 Intent 1000 CC (Special Coverage Comments: 23g inserted to R AC per first attemptpt tolerated [id number] NS infusing Instructions Apply. See MCM: 2048) (J7030)By: Stefanie Ghosh XR RIB AND CHEST LEFT (21931)By: Sergei On: 09-Aug-2017 Libby Zavala DO Comments: stat call wet read fall with left anterior inferior rib pain/sob B 12 Injection, 1000 mcg (J3420)By: On: 03-Aug-2017 Intent Visit, Nurse Comments: given - see flowsheet Dose-prefilled syringeRIGHT DLTD, IMgiven by:ANGEL JarrellVIS signed B 12 Injection, 1000 mcg (J3420)By: On: 01-Aug-2017 Intent Margarita Drake DO, DO, Comments: vitamin b12 1000mcg injectionlot: [id number]: 10/2018L DELT IMpt tolerated wellAD NATIONAL SECRETARY Margarita B 12 Injection, 1000 mcg (J3420)By: On: 26-Jul-2017 Intent Margarita Drake DO, DO, Comments: vitamin b12 1000mcg injectionlot: [id number]: 10/2018L DELT IMpt tolerated wellAD NATIONAL SECRETARY Margarita INTENSIVE BEHAVIORAL THERAPY TO On: 25-Jul-2017 Intent REDUCE CARDIOVASCULAR DISEASE RISK, INDIVIDUAL, [id number], ANNUAL, 15 MINUTES ([id number])By: Margarita Drake DO, DO, Kathleen SCREENING DIGITAL TOMOSYNTHESIS OF On: 25-Jul-2017 Intent BREAST ([id number])By: Margarita Drake DO, DO, Kathleen B 12 Injection, 1000 mcg (J3420)By: On: 25-Jul-2017 Intent Margarita Drake DO, DO, Comments: vitamin b12 1000mcg injectionlot: [id number]: 10/2018L DELT IMpt tolerated wellAD NATIONAL SECRETARY Margarita Rocephon Injection, 1 Gm (J0696)By: On: 13-Mar-2017 Intent Fast DO, Libby A Radiology - Finger(s) - RightBy: Fast On: 13-Mar-2017 Intent DO Libby A Comments: second finger rule out osteo Aerosol Treatment (85608)By: Sanjay On: 23-Sep-2016 Margarita Zavala DO, DO, Kathleen Comments: albulterol .83%more a/e but more noise- inspir and expir wheeze and junky Bone Density StudyBy: Davian Mccray MD On: 12-Nov-2015 Intent MAMMOGRAM, SCREENING, BOTH BREAST On: 12-Nov-2015 Intent ([id number])By: Davian Mccray MD CT - Chest (Without Contrast)By: Shazia On: 05-Nov-2015 Intent Davian ARAGON Comments: low dose DEXA SCAN AXIAL SKELETON (36302)By: On: 29-Oct-2015 Intent Davian Mccray MD Ultrasound - ThyroidBy: Shazia ARAGON, On: 29-Oct-2015 Intent Davian BILATERAL MAMMOGRAMS ([id number])By: Shazia On: 29-Oct-2015 Intent Davian ARAGON B [...] MAMMOGRAM, SCREENING, BOTH BREAST On: 07-Nov-2014 Intent (33373)By: Sergei GALARZA Libby A B 12 Injection, 1000 mcg (J3420)By: On: 07-Nov-2014 Intent Fast DO Libby A Comments: lot: [id number]: 06/19Dose: 1,000 mcgSite: l dltdLocation; IMby: B 12 Injection, 1000 mcg (J3420)By: On: 08-Oct-2014 Intent Fast DO Libby A Comments: Lot:[id number]:05/20Dose:1mlRoute:IMSite:l armGiven By:RAMÓN signed BILATERAL MAMMOGRAMS (77828)By: Sergei On: 08-Aug-2014 Intent DO Libby A INJECTION, VITAMIN B-12 On: 23-Jun-2014 Intent CYANOCOBALAMIN, UP TO 1000 MCG Comments: lot [id number] 03/19location L armroute imgiven by - msmithVIS and/or ABN signed (Special Coverage Instructions Apply. See CIM: 45-4 and [facility] [place]: 2049) (J3420)By: Ann Marie Cassidy CNP E [...] On: 21-Mar-2014 Intent HERMANN (Ankle Brachial Index) (79395)By: On: 10-Feb-2014 Intent Fast DO, Libby A B 12 Injection, 1000 mcg (J3420)By: On: 11-Dec-2013 Intent Fast DO, Libby A Comments: Edgar bolden, [id number] flowsheetMegan CT - ChestBy: Fast DO, Libby A On: 11-Dec-2013 Intent Eprescribed prescriptions (G8553)By: On: 11-Dec-2013 Intent Fast DO, Libby A B 12 Injection, 1000 mcg (J3420)By: On: 30-Oct-2013 Intent Fast DO, Libby A Comments: lot: [id number]: 07/19site/route: Edgar del/IMamt: 1mLVIS signed when applicableRADHA Marte Eprescribed prescriptions (G8553)By: On: 09-Sep-2013 Intent Rachel Leyva ELECTROCARDIOGRAM, COMPLETE (ECG) On: 27-Aug-2013 Intent (50746)By: Ann Marie Cassidy CNP SPECIMEN HNDLNG/TRNSPRT, OFFC > LAB On: 18-Jun-2013 Intent (09278)By: Ann Marie Cassidy CNP MAMMOGRAM, SCREENING, BOTH BREASTS On: 04-Jun-2013 Intent (28023)By: Fast DO, Libby A DXA, BONE DENSITY, AXIAL SKELETON On: 04-Jun-2013 Intent (38791)By: Fast DO, Libby A CT - ChestBy: [...] MAMMOGRAM, SCREENING, BOTH BREASTS On: 01-Feb-2013 Intent (17206)By: Libby Mai DO Comments: end of april CT - ChestBy: Sergei GALARZA Libby A On: 01-Feb-2013 Intent Comments: march or april B 12 Injection, 1000 mcg (J3420)By: On: 01-Feb-2013 Intent Libby Mai DO A Eprescribed prescriptions (G8553)By: On: 01-Feb-2013 Intent Rachel Leyva B 12 Injection, 1000 mcg (J3420)By: On: 30-Oct-2012 Intent Rachel Leyva Comments: Lot:Exp:08/17Lot:[id number]:1mlRoute:imSite:L deltoidGiven by:BMY DXA, BONE DENSITY, AXIAL SKELETON On: 30-Oct-2012 Intent (69720)By: Libby Mai DO A Eprescribed prescriptions (G8553)By: On: 30-Oct-2012 Intent Rachel Leyva Nuclear Medicine - ThyroidBy: Sanjay On: 24-Sep-2012 Intent , Margarita Sanjay DO, Margarita Esophagram with 13 mmm tabletBy: On: 06-Sep-2012 Intent Sanjay DO, Margarita Sanjay DO, Margarita Eprescribed prescriptions ([id number])By: On: 06-Sep-2012 Intent Allyn Prajapati LPN B 12 Injection, 1000 mcg (J3420)By: On: 30-Jul-2012 Intent Libby Mai DO Comments: Lot #:[id number] date: mount given: 1mlRoute: IMSite given: left deltoidGiven by: KADY Rehman CT - ChestBy: Helga Mai DOa A On: 30-Jul-2012 Intent Ultrasound - ThyroidBy: Sergei GALARZA, On: 30-Jul-2012 Intent Libby A Eprescribed prescriptions ([id number])By: On: 30-Jul-2012 Intent Rachel Leyva Eprescribed prescriptions ([id number])By: On: 05-Jul-2012 Intent Allyn Prajpaati LPN MAMMOGRAM, SCREENING, BOTH BREASTS On: 23-Apr-2012 Intent (86917)By: Libby Mai DO CT - Chest (IV Contrast Needed)By: On: 21-Nov-2011 Intent Libby Mai DO Comments: thi is a follow up CT for abnormal ct chest in april 2011 TDAP VACCINE >7 IM ([id number])By: On: 25-Jul-2011 Intent Rachel Leyva Comments: Lot:[id number]:07/21/13Amt:prefilledRoute:IMSite:left deltGiven By: ANGEL Anthony CT - Abdomen & PelvisBy: Sergei GALARZA, On: 25-Jul-2011 Intent Libby Ballard Comments: stat call wet read FLU VAC, SPLIT, >3 YEARS, INTRAMUSC On: 25-Jul-2011 Intent (15649)By: Rachel Leyva Comments: pt refuses CT - ChestBy: Libby Mai DO On: 20-Apr-2011 Intent Comments: pe protocol Ultrasound - ThyroidBy: Sergei GALARZA, On: 04-Apr-2011 Intent Libby Ballard Comments: to be done in 6 months Spirometry (73586)By: Libby Mai DO On: 16-Mar-2011 Intent A Comments: good effort and curve normal Pulse Oximetry (34238)By: Sergei GALARZA, On: 16-Mar-2011 Intent Libby Ballard Comments: 97% EKG (45291)By: Libby Mai DO On: 16-Mar-2011 Intent Comments: [...] MAMMOGRAM, SCREENING, BOTH BREASTS On: 17-Jan-2011 Intent (66109)By: Libby Mai DO Pulse Oximetry (55886)By: Khanh MCDANIEL, On: 14-Jun-2010 Intent Ann Marie Benitez Aerosol Treatment (35834)By: Khanh On: 14-Jun-2010 Intent Ann Marie MCDANIEL DXA, BONE DENSITY, AXIAL SKELETON On: 23-Dec-2009 Intent (17003)By: Libby Mai DO MAMMOGRAM, SCREENING, BOTH BREASTS On: 23-Dec-2009 Intent (33180)By: Libby Mai DO EKG (86181)By: Rachel Leyva On: 23-Dec-2009 Intent Comments: ekg- 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 no change normal axis MAMMOGRAM, SCREENING, BOTH BREASTS On: 25-Nov-2008 Intent (82351)By: Libby Mai DO EKG (14291)By: Libby Mai DO On: 25-Nov-2008 Intent Comments: ekg showed normal sinus with no lateral t wave inversioon and poor rwave progression- twave inversion anteriolry unchanged Spirometry (39001)By: Libby Mai DO On: 25-Nov-2008 Intent A Radiology - Chest- PA and LatBy: Sergei On: 25-Nov-2008 Intent Libby GALARZA Pulse Oximetry (77279)By: Sergei GALARZA, On: 25-Nov-2008 Intent Libby Ballard Bio Z (73595)By: Libby Mai DO On: 14-May-2008 Intent Comments: [...] On: 09-Oct-2006 Intent Libby GALARZA Bio Z (00295)By: Libby Mai DO On: 09-Oct-2006 Intent Comments: high svr and low normal cardiac output- so will add in [facility] Planned Medications INFUSION, NORMAL SALINE SOLUTION , [...] MCG/ML Injection Solution Ordered: 26-Mar-2018 Pending [employer] NATIONAL 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, Marlyn Vitamin B-12 1000 MCG/ML Injection Solution [...] without anemia Hypomagnesemia : DISCONTINUED - MAGNESIUM (50293) Indication: Hypomagnesemia Macrocytosis without anemia : DISCONTINUED - METABOLIC PANEL, BASIC (49396) Indication: Macrocytosis without anemia Nonsmoker : How [...] Mixed hyperlipidemia : DISCONTINUED - LIPID PANEL (35025) Indication: Mixed hyperlipidemia Mixed hyperlipidemia : DISCONTINUED - METABOLIC PANEL, COMPREHENSIVE (94929) Indication: Mixed hyperlipidemia Mixed hyperlipidemia : DISCONTINUED - LIPID PANEL (84963) Indication: Mixed hyperlipidemia Diabetes mellitus type 2, uncontrolled, without complications : DISCONTINUED - METABOLIC PANEL, COMPREHENSIVE (42083) Indication: Diabetes mellitus type 2, uncontrolled, without [...] Advance Directives Name Dates Details Immunization Registry [place] - Effective on Effective: 25-Jul-201707/25/2017. Expiration date [...] failure, Vitamin D deficiency (268.9), CAD in [place] artery [facility] Office Visit On: [...] severe, Vitamin D deficiency (268.9), CAD in [place] artery [facility] Office Visit On: [...] bronc hitis, post viral cough-given z-pack and vugcedatbc-Eyfty-fsptj not feeling good- fatigue, fever, chills, high [...] providers contributing to the patient's care are canvas goods fabricator, gastrologist and kitchen supervisor. Encounter Diagnosis: BMI 26.0-26.9,adult, Hypomagnesemia, Nonsmoker, Pulmonary [...] issues sent to Transitional care unit at [facility]. Saw Dr. Greene in trasitional care, had [...] for xofran.Told it was colitis. Admitted to [facility] and had monitoring then cath found 25% [place] cardio myopthy, placed on carvediolol 6.25mg Recently went to [facility] seen after Nonstemi, and low EF 25% [...] is transitioning into care from a hospital ([facility] 10/23 to 10/27 pneumonia) and a [...] - Reason for hospitalization note: (was in [facility] er sun for bronchitis I used [...] block by Basali. Will be seeing Dr. iVri Mccray. and Dr. Wu. Encounter Diagnosis: Pulmonary [...] providers contributing to the patient's care are community associate and other: (eye exam - 1 [...] the fatigue is because traveling alot for [employer] and up late and trial coming upEncounter [...] and she [facility] reviewed and told her to [...] evaluation: Surgery is with Dr. Yepez in [place]- [phone] and fax- [phone]- had stimulator removed- then had mri of [...] pressure (and trying to use hands or construction driller anything). There is no radiation. Associated symptoms [...] bp high and said becuase son in longterm, [ADDITIONAL REASON] Follow up, Laboratory Test Results [...]
--- OUTSIDE RECORDS SUMMARY | 2018-10-01 10:01 | XMS RPT_ITS ---
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 CBC W/DIFF, AUTOMATED Collected: 12/07/2017 Status: F Source: [place] 8:59 AM [facility] REPOSITORY TYPE CODE TESTS RESULT OUT OF RANGE REFERENCE UNITS LAB L100.1000 4.4-11.0 K/mm3 Normal WBC 6.3 LAB L100.1200 4.2-5.4 M/mm3 Normal RBC 4.31 LAB L100.1300 12.0-15.0 g/dl Normal HGB 13.3 LAB L100.1400 37-47 % Normal HCT 42.0 LAB L100.1500 81-99 fL Normal MCV 97.4 LAB L100.1600 27.0-32.0 pg Normal MCH 30.9 LAB L100.1700 32-36 g/gl Low MCHC 31.7 LAB L100.1810 11.6-14.6 % High RDW CV 16.5 LAB L100.1820 35.1-43.9 fl High RDW SD 58.2 LAB L100.1900 150-450 K/mm3 Normal PLT 358 LAB L100.2000 6.2-12.0 fl Normal MPV 9.5 LAB L100.2100 47-70 % Low NEUT% 41.9 LAB L100.2200 19-41 % Normal LY% 40.7 LAB L100.2300 0-10 % High MONO% 12.6 LAB L100.2400 0-5 % Normal EO% 3.5 LAB L100.2500 0-1 % Normal BASO% 0.8 LAB L100.2550 0.0-0.9 % Normal IM GRAN % 0.500 Result Comment: IG% - Immature Granulocytes (promyelocytes, myelocytes and metamyelocytes) > 1% indicates that a LEFT SHIFT is Present. LAB L100.2620 2.0-7.7 X10 3/uL Normal Absolute Neut 2.6 LAB L100.2720 0.83-4.51 X10 3/ul Normal Absolute Lymph 2.55 Performed By: #### L100.0100 #### [facility] [address] [place], [address] COMPREHENSIVE METABOLIC Collected: 12/07/2017 Status: F Source: [facility] 8:59 AM [facility] REPOSITORY TYPE CODE TESTS RESULT OUT OF RANGE REFERENCE UNITS LAB L501.0100 74-106 mg/dL High GLU 107 Result Comment: Fasting Glucose result from 100 to 125 mg/dL suggests IMPAIRED HOMEOSTASIS per A.D.A. criteria. Please note revised GLUCOSE reference range effective 2017. LAB L501.1000 7-18 mg/dL Normal BUN 13 LAB L501.1100 0.55-1.02 mg/dL Normal CREAT,SERUM 0.77 Result Comment: The validity of the calculated GFR AND GFRAA in patients over 70 years has not been determined. Clinical correlation is essential. LAB L501.1110 >60 mL/min Normal EST GFR 78 Result Comment: Non- GFR Calc LAB L501.1115 >60 mL/min Normal EST GFR - AA 94 Result Comment: GFR Calc LAB L501.1300 10-20 RATIO Normal BUN/CRE 16.9 LAB L501.1500 6.4-8.2 g/dL T Normal PROT 7.5 LAB L501.1800 3.2-5.0 g/dL Normal ALB 3.9 LAB L501.1950 2.2-4.2 g/dL Normal GLOB 3.6 LAB L501.2000 0.9-2.4 RATIO Normal A/G 1.1 LAB L501.2200 8.5-10.1 mg/dL CA Normal 8.9 LAB L501.4100 15-37 U/L Low AST 13 LAB L501.4305 45-117 U/L Normal ALK P 76 LAB L501.4405 13-56 U/L Normal ALT 21 Result Comment: Please note revised ALT reference range effective 2017. LAB L501.4600 0.20-1.00 mg/dL Normal T BILI 0.40 LAB L501.5300 136-145 mmol/L Normal NA 140 LAB L501.5600 3.5-5.1 mmol/L Low K 3.4 LAB L501.5900 98-107 mmol/L Normal CL 100 LAB L501.6100 21.0-32.0 mmol/L Normal CO2 32.0 LAB L501.6200 5-15 Normal GAP 8 Performed By: #### L500.4050 #### [facility] [address] [place], [address] EMERGENCY DEPARTMENT Observed: 12/03/2017 Status: F Source: [place] SUMMARY 5:06 PM [facility] REPOSITORY [facility] Medical Records Department [address] [place] [address] Emergency Department Summary 12/03/17 1656 MR#: [id number] Acct: [id number] Name: MARYCHUY MAHARAJ Rep #: [id number] : 1945 72 From: Arya Torrez MD PCP: Margarita Drake DO Status: REG ER - ER Visit Summary Date of Service: 12/03/17 Chief Complaint: Left-sided chest/rib pain status post fall History of Present Illness: The patient is a 72 F who fell 1-1/2 weeks ago sustaining a bruise above the left brow and injuring her left chest. She fell from a standing position. This occurred when she got up quickly at 0351 to use the restroom. She had no loss conscious. She was not dazed. She is on no anticoagulant or antiplatelet medication. She denies any trouble with vision, speech and denies any neck pain, paresthesia, anesthesia [...] movement of her left upper extremity, bending, twisting or breathing. She localizes the pain over the lower ribs and specifically left parasternal border and from the anterior axillary line to the posterior axillary line. She denies any hematuria, frequency, urgency or dysuria. She denies any abdominal pain or back pain. Please read written note for complete detail Physical Examination: Vital signs are remarkable for an elevated blood pressure 138/85. She is not febrile, tachypneic or hypoxic. She appears uncomfortable. Head is normocephalic. There is a bruise over the left brow laterally. There is no palpable depression or subcutaneous hematoma. Pupils are equal round reactive. Extraocular muscles are intact. TMs are pearly white with landmarks noted. Nares patent with no drainage. Posterior pharynx without erythema or exudate. Uvula is midline. There is no dysphonia or dysphasia. Trachea is midline. There is no stridor with auscultation of the neck. There is no pain palpation of the cervical spine and she has full active range of motion. Heart is regular without murmur, gallop or rub. S1 and S2 are normal. Lungs are clear to auscultation with good movement of air bilaterally. There is pain to palpation over the fifth sixth intercostal space on the left. There is pain that she complains of from the left seventh through 10th rib on the left. There is no crepitus or subcutaneous air. There is no dullness to percussion. Breath sounds are not diminished on the left nor is there [...] Department Course and Treatment: 2 view chest x- ray was obtained to evaluate for fractured rib, pneumothorax, hemothorax. Treatment Plan: Patient was treated with opiate analgesia in the department because she states her boyfriend could take her home. Patient was told 40-60% of rib fractures are not detected on x-ray. Disposition: Discharge to home with opiate analgesia and appropriate home-going instructions Impression: Left-sided rib pain secondary to blunt trauma This note was generated with [employer] dictation software. It may contain incorrect words, spelling, and punctuation that were not noted in review of the chart prior to signing ED Disposition - Plan for ED Patient: Disposition: Home or Assisted Living Chief Complaint: Chest Other Instructions: ED Contusion Vs Minor Fx Rib Prescriptions: Hydrocodone Bitart/Apap 5-325 [[place] 5MG-325MG] 1 tab PO Q6H PRN PRN 3 Days #10 tab PRN Reason: Pain Referrals: Margarita Drake DO [Primary Care Provider] - 1 Week if not improving What to do if you have Problems For any increased pain, shortness of breath, bleeding, nausea or vomiting, chest pain, or any unexpected problems, contact your Primary Care Provider. Call [facility] ([phone]) or report to the closest Emergency Room. Call 911 if necessary. 12/03/17 1706 <Electronically signed by Arya Torrez MD> Date Arya Torrez MD Cosigner Signature (If Indicated): Date CC: Margarita Drake DO CHEST PA AND LATERAL Observed: 12/03/2017 Status: F Source: [place] 4:17 PM [facility] REPOSITORY [facility] Imaging Services [address] [place] [address] Chest PA and Lateral MR#: [id number] Acct: [id number] Name: MARYCHUY MAHARAJ Rep #: [id number] : 1945 F 72 From: Lotus Anthony MD PCP: Margarita Drake DO Status: DEP ER Study: Chest PA and Lateral Date of Exam: 12/03/17 Exam# [id number] Ordering Dr: Arya Torrez MD STUDY: X-RAY [...] process. Electronically Signed: Lotus Anthony MD at 17:19 EDT Tel , Service support , CC: Margarita Drake DO; Arya Torrez MD Director Of Career Resources: Signed SCREENING MAMM (CAD), Observed: 10/18/2017 Status: F Source: [facility] 10:07 AM [facility] REPOSITORY [facility] Imaging Services [address] [place] [address] SCREENING MAMM (CAD), BILAT MR#: [id number] Acct: [id number] Name: MARYCHUY MAHARAJ Rep #: [id number] : 1945 F 72 From: Florian Valenzuela MD PCP: Margarita Drake DO Status: REG CLI Study: SCREENING MAMM (CAD), BILAT Date of Exam: 10/18/17 Exam# [id number] Ordering Dr: Margarita Drake DO MAMMOGRAPHY - BILATERAL SCREENING REASON FOR EXAM: Female, 72 years old. Routine annual screening examination. PERTINENT HISTORY: Mother with breast cancer. Aunt with breast cancer. TECHNIQUE: Digital bilateral breast jann (3D mammographic acquisition) in the CC and MLO projections. 2-D mediolateral oblique (MLO) and craniocaudad (CC) views of both breasts were obtained. CAD: Full Field Digital Mammography with Computer Added Detection was performed. COMPARISON: Comparison is made with prior study dated November 19, 2015 and November 17, 2014. FINDINGS: Breast Composition: There are scattered areas of fibroglandular density. There are no dominant masses or suspicious calcifications. No other significant abnormalities are identified. There has been no significant change since the prior study. HPBI/SCREENING MAMM (CAD), BILAT IMPRESSION: Stable bilateral screening mammogram. Yearly follow-up mammogram recommended. (A) ASSESSMENT CATEGORY: BIRADS Category 1: Negative. A letter regarding these results will be sent to the patient by the facility within 30 days. Approximately 10% of breast cancers are not detected by mammography. A normal mammogram should not delay biopsy of a clinically suspicious abnormality. [id number] Electronically Signed: Florian Valenzuela MD at 13:51 EST Tel [phone], Service support , CC: Margarita Drake DO Director Of Career Resources: Signed CARDIOLOGY VISIT Observed: 10/13/2017 Status: F Source: [place] REPORT 3:46 PM [facility] REPOSITORY [facility] [address] [place] [address]. [address] [place] [address] OFFICE VISIT Date of Service: 10/13/17 MR#: [id number] Acct: [id number] Name: MARYCHUY MAHARAJ Rep #: [id number] : 1945 Provider: Sergio Maya MD Age/Sex: 72/F Location: [facility] Status: Signed [facility] Chief Complaint: Follow up Details: MARYCHUY MAAHRAJ, is a 72 F who presents to the office today for a follow-up visit. She is a lady with a history of minimal coronary artery disease, status post cardiomyopathy, pulmonary emboli, hypertension, and hyperlipidemia. She tells me that she did undergo had back surgery. As you know, in December of this last year she presented to the hospital with intractable nausea and vomiting and had a non ST elevation myocardial infarction. The cardiac catheterization demonstrated a left anterior descending artery with 40% stenosis, circumflex artery with no significant stenosis and right coronary artery with no significant stenosis. Her ejection fraction was noted to be 25%, consistent with takotsubo cardiomyopathy. Her echocardiogram in September 2016 demonstrated an ejection fraction of 60%. She had no neck, arm or jaw discomfort to suggest angina. No dizziness, diaphoresis, near syncope or syncope. She has been compliant with all of her medications. She has had no further cardiac symptomatology. Her physical examination demonstrates clear lung braga, regular rate and rhythm, no pedal edema. There is a soft 2/6 systolic murmur noted in the left sternal border. Intake Vital Signs10/13/17 Height 5 ft 5 in Intake Visit Reasons: 6 M FU Allergies rosuvastatin calcium [From Crestor] Allergy (Verified 05/22/17 14:56) Itching simvastatin Allergy (Verified 05/22/17 14:56) Itching Medications Pantoprazole Sodium [Protonix] 40 mg PO BID 01/22/17 [History Confirmed 10/11/17] Amlodipine Besylate/Benazepril [Amlodipine-Benazepril 10-20 mg] 1 ea PO DAILY 05/22/17 [History Confirmed 10/12/17] Acyclovir [Zovirax] 400 mg PO BID PRN PRN 05/23/17 [History Confirmed 10/12/17] Carvedilol [Coreg] 3.125 mg PO DAILY 05/23/17 [History Confirmed 10/12/17] Magnesium Oxide [Mag-Ox 400] 400 mg PO BID 05/23/17 [History Confirmed 10/12/17] Metformin HCl [Metformin HCl ER] 1,000 mg PO 1700 05/23/17 [History Confirmed 10/11/17] Metformin HCl [Metformin HCl ER] 500 mg PO 0800 05/23/17 [History Confirmed 10/12/17] Acetaminophen [Tylenol Tablet] 650 mg PO Q6H PRN PRN tab 05/24/17 [Rx] gabapentin 400 mg capsule 800 mg PO TID cap 10/11/17 [History Confirmed 10/12/17] hydrochlorothiazide 25 mg tablet 25 mg PO QDAY 10/11/17 [History Confirmed 10/12/17] potassium chloride ER 20 mEq tablet,extended release(part/cryst) 20 meq PO QDAY tab 10/11/17 [History Confirmed 10/12/17] duloxetine 60 mg capsule,delayed release 60 mg PO QDAY 10/12/17 [History Confirmed 10/12/17] [facility] Medical History Hyperlipidemia (Chronic) Elevated blood pressure reading without diagnosis of hypertension (Chronic) Other terminologist (current) drug therapy (Chronic) Nonrheumatic aortic (valve) insufficiency (Chronic) Nonrheumatic tricuspid (valve) insufficiency (Chronic) Other secondary pulmonary hypertension (Chronic) Nonischemic cardiomyopathy (Chronic) Fatigue (Chronic) Hx pulmonary embolism (Resolved) Takotsubo cardiomyopathy (Chronic) GI (gastrointestinal bleed) (Chronic) CAD (coronary artery disease) (Chronic) Lumbar spinal stenosis (Chronic) Chiari malformation (Chronic) GERD (gastroesophageal reflux disease) (Chronic) Depression (Chronic) Anxiety (Chronic) Diabetes mellitus type 2, diet-controlled (Chronic) Hypertension (Chronic) Hypersomnia (Chronic) Leg edema, left (Chronic) Nocturnal hypoxia (Chronic) Other chest pain (Chronic) Shortness of breath (Chronic) Surgical History Cervical post-laminectomy syndrome (Resolved) H/O craniotomy (Chronic) Family History Mother Breast cancer Other Carcinoma, lung Social History Smoking Status: Never smoker ROS Const Const: Positive for fatigue and weakness; negative for difficulty sleeping, frequent falls, headache(s) or excessive sweating Eyes Eyes: Negative for loss of peripheral vision, transient loss of vision, blurry vision or double vision ENT ENT: Negative for headache(s), Negative for dizziness, Negative for Nosebleed/epistaxis, Negative for balance problems Cardio Chest Pain: No Edema: None Muscle aches with walking: None Resp Respiratory: Positive for SOB with activity (SOB with little ambulation); negative for SOB at rest, SOB orthopnea\SOB lying down or paroxysmal nocturnal dyspnea GI GI: Negative nausea or heartburn : Negative for hematuria Musc Musc: Negative for muscle aches/ myalgia, muscle weakness, joint pain or balance problems Skin Skin: Negative non-healing lesions, unusual bruising or rash Neuro Neuro: Positive for weakness, Negative for frequent falls, Negative for blurry vision, Negative for headache(s), Negative for dizziness, Negative for lightheadedness, Negative for orthostatic symptoms, Negative for double vision Tadeo Hematologic/Lymphatic: Negative for easy bruising Endo Endo: Positive for fatigue; negative for excessive sweating or increased thirst/drinking Psych Psych: Negative for anxiety or depression [...] nares normal, septum normal, no nasal discharge Face and Sinus: face symmetric Mouth: oral mucosae normal, tongue normal, oropharynx normal and moist mucous membranes Teeth and gingiva: dentition normal Throat: posterior oropharynx normal, tonsils normal and uvula midline Eyes General: appearance normal, both eyes and all related structures Eyelids: eyelids normal Conjunctivae: conjunctivae normal Pupils: PERRL, normal by confrontation and accommodation normal EOM: EOM intact bilaterally Neck Neck: normal visual inspection, trachea midline and no JVD JVD: +5 Carotids: normal carotid upstroke and bounding pulses Chest Chest inspection: normal inspection of the chest, symmetric chest movement and normal respiratory effort Auscultation: Bilateral: Clear to Auscultation Cardio Palpation: normal PMI Rate: regular rate Rhythm: regular rhythm Heart sounds: S1 normal, S2 normal and normal, physiologic split S2; negative rub, gallop or murmur GI GI: normal to inspection, soft, no hepatosplenomegaly and bowel sounds present Neuro General: alert, awake, oriented x3, no focal sensory deficit, gait normal and moves all extremities Skin Skin: no rashes or lesions noted Extremities Pulses: Normal: Right Femoral Pulse, Left Femoral Pulse, Right Dorsalis Pedis Pulse, Left Dorsalis Pedis Pulse, Right Posterior Tibial Pulse, Left Posterior Tibial Pulse, Right Radial Pulse, Left Radial Pulse Lower Extremity Edema: None: Bilateral Musculoskel Musculoskeletal: No joint tenderness Psych Psychological: normal affect Assessment AND Plan 1. Coronary artery disease involving the [place] coronary artery of [place] heart without angina pectoris I25.10 Mild Plan She does have evidence of mild coronary artery disease she has not had any angina and my plan is to continue the current medical therapy without making any changes. She does have preserved left ventricular systolic function. 2. Essential hypertension I10 Plan Her blood pressure is under good control on the current medical therapy. I would not recommend that we make any changes. She remains on the amlodipine benazepril as well as the hydrochlorothiazide. Plan Detail Follow Up 1 Year (mmm) Coding Level of Care Code Off vis,est,level 3 Diagnoses Coronary artery disease involving the [place] coronary artery of [place] heart without angina pectoris I25.10 Coronary Disease-Associated Artery/Lesion type: [place] artery [place] vs. transplanted heart: [place] heart Associated angina: without angina Essential hypertension I10 Hypertension type: essential hypertension Coding Level of Care Code Off vis,est,level 3 Diagnoses Coronary artery disease involving the [place] coronary artery of [place] heart without angina pectoris I25.10 Coronary Disease-Associated Artery/Lesion type: [place] artery [place] vs. transplanted heart: [place] heart Associated angina: without angina Essential hypertension I10 Hypertension type: essential hypertension 10/13/17 1546 <Electronically signed by Sergio Maya MD> Date Sergio Maya MD Cosigner Signature: Date (if applicable) CC: Margarita JOHNSON W/DIFF, AUTOMATED Collected: 10/10/2017 Status: F Source: [place] 2:10 PM [facility] REPOSITORY TYPE CODE TESTS RESULT OUT OF RANGE REFERENCE UNITS LAB L100.1000 4.4-11.0 K/mm3 Normal WBC 7.1 LAB L100.1200 4.2-5.4 M/mm3 Normal RBC 4.22 LAB L100.1300 12.0-15.0 g/dl Normal HGB 12.9 LAB L100.1400 37-47 % Normal HCT 40.1 LAB L100.1500 81-99 fL Normal MCV 95.0 LAB L100.1600 27.0-32.0 pg Normal MCH 30.6 LAB L100.1700 32-36 g/gl Normal MCHC 32.2 LAB L100.1810 11.6-14.6 % Normal RDW CV 14.1 LAB L100.1820 35.1-43.9 fl High RDW SD 47.4 LAB L100.1900 150-450 K/mm3 Normal PLT 307 LAB L100.2000 6.2-12.0 fl Normal MPV 10.2 LAB L100.2100 47-70 % Low NEUT% 45.6 LAB L100.2200 19-41 % Normal LY% 37.9 LAB L100.2300 0-10 % Normal MONO% 10.0 LAB L100.2400 0-5 % High EO% 5.2 LAB L100.2500 0-1 % Normal BASO% 1.0 LAB L100.2550 0.0-0.9 % Normal IM GRAN % 0.300 Result Comment: IG% - Immature Granulocytes (promyelocytes, myelocytes and metamyelocytes) > 1% indicates that a LEFT SHIFT is Present. LAB L100.2620 2.0-7.7 X10 3/uL Normal Absolute Neut 3.3 LAB L100.2720 0.83-4.51 X10 3/ul Normal Absolute Lymph 2.70 Performed By: #### L100.0100, L101.9900 #### [facility] [address] [place], [place], [id number] ERYTHROCYTE SED RATE Collected: 10/10/2017 Status: F Source: [place] 2:10 PM [facility] REPOSITORY TYPE CODE TESTS RESULT OUT OF RANGE REFERENCE UNITS LAB L102.0000 0-30 mm/hr Normal SED RATE 7 Performed By: #### L100.0100, L101.9900 #### [facility] [address] [place], [address] COMPREHENSIVE METABOLIC Collected: 10/10/2017 Status: F Source: [place] 2:10 PM [facility] REPOSITORY TYPE CODE TESTS RESULT OUT OF RANGE REFERENCE UNITS LAB L501.0100 74-106 mg/dL High GLU 132 Result Comment: Fasting Glucose result greater than or equal to 126 mg/dL suggests DIABETES MELLITUS per A.D.A. criteria. LAB L501.1000 7-18 mg/dL Normal BUN 14 LAB L501.1100 0.55-1.02 mg/dL Normal CREAT,SERUM 0.75 Result Comment: The validity of the calculated GFR AND GFRAA in patients over 70 years has not been determined. Clinical correlation is essential. LAB L501.1110 >60 mL/min Normal EST GFR 80 Result Comment: Non- GFR Calc LAB L501.1115 >60 mL/min Normal EST GFR - AA 97 Result Comment: GFR Calc LAB L501.1300 10-20 RATIO Normal BUN/CRE 18.7 LAB L501.1500 6.4-8.2 g/dL T Normal PROT 6.7 LAB L501.1800 3.2-5.0 g/dL Normal ALB 3.5 LAB L501.1950 2.2-4.2 g/dL Normal GLOB 3.2 LAB L501.2000 0.9-2.4 RATIO Normal A/G 1.1 LAB L501.2200 8.5-10.1 mg/dL Low CA 8.3 LAB L501.4100 15-37 U/L Low AST 14 LAB L501.4305 45-117 U/L Normal ALK P 81 LAB L501.4405 13-56 U/L Normal ALT 16 Result Comment: Please note revised ALT reference range effective 2017. LAB L501.4600 0.20-1.00 mg/dL Normal T BILI 0.40 LAB L501.5300 136-145 mmol/L Normal NA 138 LAB L501.5600 3.5-5.1 mmol/L Normal K 3.8 LAB L501.5900 98-107 mmol/L Normal CL 100 LAB L501.6100 21.0-32.0 mmol/L Normal CO2 28.0 LAB L501.6200 5-15 Normal GAP 10 Performed By: #### L500.4050, L501.6710 #### [facility] [address] [place], [address] CRP Collected: 10/10/2017 Status: F Source: [place] 2:10 PM [facility] REPOSITORY TYPE CODE TESTS RESULT OUT OF RANGE REFERENCE UNITS LAB L501.6710 0.0-3.0 mg/L High 4.26 C-REACTIVE PROT Result Comment: C-Reactive Protein (CRP) provides useful information for the diagnosis, therapy and monitoring of inflammatory processes and associated diseases. For the evaluation of Relative Risk for Cardiovascular Disease, a High Sensitivity CRP (HSCRP) should be ordered. Performed By: #### L500.4050, L501.6710 #### [facility] [address] [place], [address] ALLERGIES ALLERGIES DATE TYPE / CODE NAME / CODE REACTION SEVERITY SOURCE 09/24/2018 Drug rosuvastatin Itching Unknown [facility]/416 calcium/[id number]( [facility] [id number]([place] [facility]) Repository 09/24/2018 Drug simvastatin/[id number] Itching Unknown [place] Allergy/416 621(RXNO) [facility] [id number]) Repository ENCOUNTERS ENCOUNTERS ADMIT/DISCHARGE ACCOUNT ADMITTING ENCOUNTER LOCATION SOURCE NUMBER CLASS 09/24/2018 [id number] Ambulatory Building:[facility] [place] Practices Repository 09/24/2018/ [id number] Ambulatory BMSBuilding:B [place] 9 9 MS.PMW [facility] Repository 09/10/2018 [id number] Ambulatory [place] 8 [facility] ing:LAB Repository 09/07/2018 [id number] Ambulatory [place] 9 [facility] ing:HPRAD Repository 08/24/2018 [id number] Ambulatory [place] 0 [facility] ing:RAD.FUTUR Repository E 08/15/2018 [id number] Ambulatory [place] 9 [facility] ing:MTLAB Repository 05/28/2018 [id number] Ambulatory [place] 2 [facility] ing:MTLAB Repository 05/21/2018 [id number] Ambulatory [place] Matilde 6 [facility] Hospital ing:LAB Repository 05/07/2018/ [id number] Emergency [place] Mat[place] 8 2 [facility] Hospital ing:ED Repository 03/21/2018 [id number] Ambulatory BMSBuilding:B [place] 2 MS.[facility] Hospital Repository 03/12/2018 [id number] Ambulatory [place] 3 [facility] Hospital ing:MTLAB Repository 02/08/2018 [id number] Ambulatory [place] 4 [facility] Hospital ing:MRI Repository 02/06/2018/ [id number] Ambulatory BMSBuilding:B [place] 8 4 MS.[facility] Hospital Repository 02/05/2018 [id number] Ambulatory [place] 8 [facility] Hospital ing:SL Repository 01/09/2018/ [id number] Ambulatory BMSBuilding:B [place] 8 5 MS.[facility] Hospital Repository 01/04/2018 [id number] Ambulatory BMS [place] 1 [facility] Hospital Repository 12/07/2017 [id number] Ambulatory Mat[place] Mat[place] 1 [facility] Hospital ing:MTLAB Repository 12/03/2017/ [id number] Emergency [place] 8 5 [facility] Hospital ing:ED Repository 10/18/2017 [id number] Ambulatory [place] Matilde 6 [facility] Hospital ing:BI Repository 10/13/2017/ [id number] Ambulatory BMSBuilding:B [place] 8 3 MS.[facility] Hospital Repository 10/11/2017 [id number] Ambulatory BMS [place] 6 [facility] Hospital Repository 10/10/2017 [id number] Ambulatory [place] 6 [facility] Hospital ing:MTLAB Repository FUNCTIONAL STATUS FUNCTIONAL STATUS No Functional Status Records FoundEQUIPMENT EQUIPMENT No Equipment Records FoundPAYERS PAYERS ENCOUNTER GUARANTOR PAYER SUBSCRIBER SOURCE 09/24/2018 Marychuy S Primary Marychuy S OHIP Practices LemarDOB: Insurance:MedicarePo LemarDOB: Repository [id number] licy Number: [id number] [place] [address] [facility] Date:2148-90-46Iwaw[address] Name:[address] [address]Fnp: [phone]) 767736Vockzfoq, [place] [address]Per: (HP)Tel: 38448QL: (HP) [phone] () 09/24/2018 Secondary Marychuy S OHIP Practices Insurance:CignaPolic LemarDOB: Repository y Number: [id number] [place] Date:Plan Name:[address] [address]Djjbjgwfhvg, [address]: [place] [address]TR: [phone] ~[phone]) 09/24/2018 MARYCHUY S Primary MARYCHUY S [place] [id number] Insurance:MEDICARE LEMARDOB: [facility] PART A [facility] [id number], Number: Repository [place] [id number]: [phone] [id number] [phone] () Date:2018-09-10 09/24/2018 Secondary MARYCHUY S [place] Insurance:CIGNAPolic LEMARDOB: Community y Number: [id number] Hospital [id number] Repository Date:4919-94-82WO [address]HVUQPPWQYSE, [place] [address]HP: 09/24/2018 Tertiary NOT GIVENUNK [place] Insurance:SELF PAY [facility] Number: Effective Repository Date:2018-09-19 09/10/2018 MARYCHUY S Primary MARYCHUY S [place] [id number] Insurance:MEDICARE LEMARDOB: [facility] PART A [facility] [id number], Number: Repository [place] [id number]: [phone] [id number] [phone] (HP) Date:2018-09-10 09/10/2018 Secondary MARYCHUY S [place] Insurance:CIGNAPolic LEMARDOB: Community y Number: [id number] Hospital [id number] Repository Date:5077-88-72IJ [address]OBRQJLMLXFF, [place] [address]YX: 09/10/2018 Tertiary NOT GIVENUNK [place] Insurance:SELF PAY [facility] Effective Repository Date:2018-09-10 09/07/2018 MARYCHUY S Primary MARYCHUY S [place] [id number] Insurance:MEDICARE LEMARDOB: Community [place] PART A [facility] [id number], Number: Repository [place] [id number]: [phone] [id number] [phone] () Date:2018-09-07 09/07/2018 Secondary MARYCHUY S [place] Insurance:CIGNAPolic LEMARDOB: Community y Number: [id number] Hospital [id number] Repository Date:9029-73-68XZ [address]HPJFJKRHKJC, [place] [address]QC: 09/07/2018 Tertiary NOT GIVENUNK [place] Insurance:SELF PAY [facility] Number: Effective Repository Date:2018-09-07 08/24/2018 MARYCHUY S Primary MARYCHUY S [place] [id number] Insurance:MEDICARE LEMARDOB: Community [place] PART A [facility] [id number], Number: Repository [place] [id number]: [phone] [id number] [phone] () Date:2018-08-24 08/24/2018 Secondary MARYCHUY S [place] Insurance:CIGNAPolic LEMARDOB: Community y Number: [id number] Hospital [id number] Repository Date:9142-61-01WB [address]PYNFTWXZKDY, [place] [address]IL: 08/24/2018 Tertiary NOT GIVENUNK [place] Insurance:SELF PAY [facility] Number: Effective Repository Date:2018-08-24 08/15/2018 MARYCHUY S Primary MARYCHUY S [place] [id number] Insurance:MEDICARE LEMARDOB: [facility] [id number], Number: [place]ository [place] [id number]: 330 [id number] [phone] () Date:2018-08-15 08/15/2018 Secondary MARYCHUY S [place] Insurance:CIGNAPolic LEMARDOB: Community y Number: [id number] Hospital [id number] Repository Date:3726-48-11DF [address] [address]YW: 08/15/2018 Tertiary NOT GIVENUNK [place] Insurance:SELF PAY [facility] Number: Effective Repository Date:2018-08-15 05/28/2018 MARYCHUY S Primary MARYCHUY S [place] [id number] Insurance:MEDICARE LEMARDOB: Community [place] PART A [facility] [id number], Number: Repository [place] [id number]: 330 [id number] [phone] () Date:2018-05-28 05/28/2018 Secondary MARYCHUY S [place] Insurance:CIGNAPolic LEMARDOB: Community y Number: [id number] Hospital [id number] Repository Date:5930-21-48FJ [address] [address]TN: 05/28/2018 Tertiary NOT GIVENUNK [place] Insurance:SELF PAY [facility] Number: Effective Repository Date:2018-05-28 05/21/2018 MARYCHUY S Primary MARYCHUY S [place] [id number] Insurance:MEDICARE LEMARDOB: Community [place] PART A [facility] [id number], Number: Repository [place] [id number]: 330 [id number] [phone] () Date:2018-05-21 05/21/2018 Secondary MARYCHUY S [place] Insurance:CIGNAPolic LEMARDOB: Community y Number: [id number] Hospital [id number] Repository Date:4194-81-31VS [address]EYNGRNLEDDO, [place] [address]NL: 05/21/2018 Tertiary NOT GIVENUNK [place] Insurance:SELF PAY [facility] Number: Effective Repository Date:2018-05-21 05/07/2018 MARYCHUY S Primary MARYCHUY S [place] [id number] Insurance:MEDICARE LEMARDOB: Community [facility] [id number], Number: Repository [place] [id number]: 330 [id number] [phone] () Date:2018-05-07 05/07/2018 Secondary MARYCHUY S [place] Insurance:CIGNAPolic LEMARDOB: Community y Number: [id number] Hospital [id number] Repository Date:2066-35-83XT [address]AKLZCGVCUZD, [place] [address]EJ: 05/07/2018 Tertiary NOT GIVENUNK [place] Insurance:SELF PAY [facility] Number: Effective Repository Date:2018-05-07 03/21/2018 MARYCHUY S Primary MARYCHUY S [place] [id number] Insurance:MEDICARE LEMARDOB: Community [place] PART A [facility] [id number], Number: Repository [place] [id number]: 330 [id number] [phone] () Date:2018-02-14 03/21/2018 Secondary MARYCHUY S [place] Insurance:CIGNAPolic LEMARDOB: Community y Number: [id number] Hospital [id number] Repository Date:6783-00-79WD [address]UDANPZTDKQV, [place] [address]XH: 03/21/2018 Tertiary NOT GIVENUNK [place] Insurance:SELF PAY [facility] Number: Effective Repository Date:2018-03-14 03/12/2018 MARYCHUY S Primary MARYCHUY S [place] [id number] Insurance:MEDICARE LEMARDOB: Community [place] PART A [facility] [id number], Number: Repository [place] [id number]: [phone] [id number] [phone] () Date:2018-03-12 03/12/2018 Secondary MARYCHUY S [place] Insurance:CIGNAPolic LEMARDOB: Community y Number: [id number] Hospital [id number] Repository Date:4198-58-08QJ [address]BVGNWOFZFKN, [place] [address]VG: 03/12/2018 Tertiary NOT GIVENUNK [place] Insurance:SELF PAY [facility] Number: Effective Repository Date:2018-03-12 02/08/2018 MARYCHUY S Primary MARYCHUY S [place] [id number] Insurance:MEDICARE LEMARDOB: Community [facility] [id number], Number: Repository [place] [id number]: [phone] [id number] [phone] () Date:2018-01-25 02/08/2018 Secondary MARYCHUY S [place] Insurance:CIGNAPolic LEMARDOB: Community y Number: [id number] Hospital [id number] Repository Date:0463-10-91IO [address]YWIXYFSBPPD, [place] [address]LS: 02/08/2018 Tertiary NOT GIVENUNK [place] Insurance:SELF PAY [facility] Number: Effective Repository Date:2018-01-25 02/06/2018 MARYCHUY S Primary MARYCHUY S [place] [id number] Insurance:MEDICARE LEMARDOB: Community [facility] PART [facility] [id number], Number: Repository [place] [id number]: [id number] [phone] Date:2018-02-01 () 02/06/2018 Secondary MARYCHUY S [place] Insurance:CIGNAPolic LEMARDOB: Community y Number: [id number] Hospital [id number] Repository Date:6699-32-37ZO [address]TKNBDTKEBRX, [place] [address]ER: 02/06/2018 Tertiary NOT GIVENUNK [place] Insurance:SELF PAY [facility] Number: Effective Repository Date:2018-02-13 02/05/2018 MARYCHUY S Primary MARYCHUY S [place] [id number] Insurance:MEDICARE LEMARDOB: Community [place] PART A [facility] [id number], Number: Repository [place] [id number]: 330 [id number] [phone] () Date:2018-01-30 02/05/2018 Secondary MARYCHUY S [place] Insurance:CIGNAPolic LEMARDOB: Community y Number: [id number] Hospital [id number] Repository Date:8007-81-84GN [address]SDXSUFEIVIP, [place] [address]XK: 02/05/2018 Tertiary NOT GIVENUNK [place] Insurance:SELF PAY [facility] Number: Effective Repository Date:2018-01-30 01/09/2018 MARYCHUY S Primary MARYCHUY S [place] [id number] Insurance:MEDICARE LEMARDOB: Community [place] PART A [facility] [id number], Number: Repository [place] [id number]: [id number] [phone] Date:2017-08-14 () 01/09/2018 Secondary MARYCHUY S [place] Insurance:CIGNAPolic LEMARDOB: Community y Number: [id number] Hospital [id number] Repository Date:8673-26-76HW [address]SUARPCUYGDR, [place] [address]WB: 01/09/2018 Tertiary NOT GIVENUNK [place] Insurance:SELF PAY [facility] Number: Effective Repository Date:2018-01-05 01/04/2018 Marychuy S Primary MARYCHUY S [place] [id number] Insurance:MEDICARE LEMARDOB: Community [place] PART A [facility] [id number], Number: [place]ository [place] [address]Vrv: [id number] [phone] Date:2018-01-04 () 01/04/2018 Secondary MARYCHUY S [place] Insurance:CIGNAPolic LEMARDOB: Community y Number: [id number] Hospital [id number] Repository Date:0330-84-26OD [address]JOWBJHSZPDZ, [place] [address]CZ: 01/04/2018 Tertiary NOT GIVENUNK [place] Insurance:SELF PAY [facility] Number: Effective Repository Date:2018-01-04 12/07/2017 Marychuy S Primary MARYCHUY S [place] [id number] Insurance:MEDICARE LEMARDOB: Community [place] PART A [facility] [id number], Number: Repository [place] [id number]: [id number] [phone] Date:2017-12-07 () 12/07/2017 Secondary MARYCHUY S [place] Insurance:CIGNAPolic LEMARDOB: Community y Number: [id number] Hospital [id number] Repository Date:3602-51-99EC [address]ZGTPMNYXSYP, [place] [address]VX: 12/07/2017 Tertiary NOT GIVENUNK [place] Insurance:SELF PAY [facility] Number: Effective Repository Date:2017-12-07 12/03/2017 Marychuy S Primary MARYCHUY S [place] [id number] Insurance:MEDICARE LEMARDOB: Community [place] PART A [facility] [id number], Number: Repository [place] [id number]: [id number] [phone] Date:2017-12-03 () 12/03/2017 Secondary MARYCHUY S [place] Insurance:CIGNAPolic LEMARDOB: Community y Number: [id number] Hospital [id number] Repository Date:0003-91-52CV [address]ICQBDISGCXY, [place] [address]RN: 12/03/2017 Tertiary NOT GIVENUNK [place] Insurance:SELF PAY [facility] Number: Effective Repository Date:2017-12-03 10/18/2017 MARYCHUY S Primary MARYCHUY S [place] [id number] Insurance:MEDICARE LEMARDOB: [facility] PART A [facility] [id number], Number: [place]ository [place] [id number]: [phone] [id number] [phone] () Date:2006-05-05 10/18/2017 Secondary MARYCHUY S [place] Insurance:CIGNAPolic LEMARDOB: Community y Number: [id number] Hospital [id number] Repository Date:5403-11-46ET [address]MUOAVRFHJOJ, [place] [address]WG: 10/18/2017 Tertiary NOT GIVENUNK [place] Insurance:SELF PAY [facility] Number: Effective Repository Date:2017-07-25 10/13/2017 Marychuy S Primary MARYCHUY S [place] [id number] Insurance:MEDICARE LEMARDOB: Community [place] PART A [facility] [id number], Number: Repository [place] [address]Hbz: [id number] [phone] Date:2017-08-09 () 10/13/2017 Secondary MARYCHUY S [place] Insurance:CIGNAPolic LEMARDOB: Community y Number: [id number] Hospital [id number] Repository Date:9644-22-61MM [address]BKSRJCRHRZR, [place] [address]VQ: 10/13/2017 Tertiary NOT GIVENUNK [place] Insurance:SELF PAY [facility] Number: Effective Repository Date:2017-08-09 10/11/2017 Marychuy S Primary MARYCHUY S [place] [id number] Insurance:MEDICARE LEMARDOB: [facility] PART A [facility] [id number], Number: Repository [place] [id number]: [id number] [phone] Date:2017-10-11 () 10/11/2017 Secondary MARYCHUY S [place] Insurance:CIGNAPolic LEMARDOB: Community y Number: [id number] Hospital [id number] Repository Date:7642-25-47ND [address]YYWTUKTGIMA, [place] [address]PO: 10/11/2017 Tertiary NOT GIVENUNK [place] Insurance:SELF PAY [facility] Number: Effective Repository Date:2017-10-11 10/10/2017 Marychuy S Primary MARYCHUY S [place] [id number] Insurance:MEDICARE LEMARDOB: [facility] PART A BPolicy [id number] [facility] [address], Number: Repository [place] [id number]: [id number] [phone] Date:2017-10-10 () 10/10/2017 Secondary MARYCHUY S [place] Insurance:CIGNAPolic LEMARDOB: Community y Number: [id number] Hospital [id number] Repository Date:9319-34-00RY [address]ARSNHZUWQER, [place] [address]AK: 10/10/2017 Tertiary NOT GIVENUNK [place] Insurance:SELF PAY [facility] Number: Effective Repository Date:2017-10-10 SOCIAL HISTORY SOCIAL HISTORY No Social History Records FoundFAMILY HISTORY FAMILY HISTORY No Family History Records FoundADVANCE DIRECTIVES ADVANCE DIRECTIVES No Advanced Directives Records FoundINFORMATION SOURCE INFORMATION SOURCE DATE CREATED AUTHOR AUTHOR'S ORGANIZATION 09/26/2018 BLAIR
== END ==
PROVIDERS: Family Provider Internal Medicine; PCP Internal Medicine; Referring Provider Internal Medicine Rheumatology; Visit Provider Internal Medicine Rheumatology
DX: M06.4 Inflammatory polyarthropathy (principal); M79.7 Fibromyalgia; M17.0 Bilateral primary osteoarthritis of knee; M16.0 Bilateral primary osteoarthritis of hip; K21.9 Gastro-esophageal reflux disease without esophagitis; Z79.899 Other long term (current) drug therapy
CPT/HCPCS: 36415; 80053; 85025

== ENCOUNTER → 2018-09-07 07:56 | Outpatient (CLI) | payer MEDICARE, OTHER, SELFPAY ==
[2018-08-15 10:01] VITALS: BMI 26.1
== END ==
PROVIDERS: Family Provider Internal Medicine; PCP Internal Medicine; Referring Provider Internal Medicine; Visit Provider Internal Medicine
DX: M26.69 Other specified disorders of temporomandibular joint (principal)

== ENCOUNTER → 2018-09-10 10:19 | Outpatient (CLI) | payer MEDICARE, OTHER, SELFPAY ==
[2018-08-15 10:01] VITALS: BMI 26.1
== END ==
PROVIDERS: Family Provider Internal Medicine; PCP Internal Medicine; Referring Provider Internal Medicine Critical Care Medicine; Visit Provider Internal Medicine Critical Care Medicine
DX: J32.9 Chronic sinusitis, unspecified (principal)
CPT/HCPCS: 87070; 87077; 87186; 87205

== ENCOUNTER → 2018-10-08 07:49 | Outpatient (CLI) | payer MEDICARE, OTHER, SELFPAY ==
[2018-09-24 09:49] VITALS: BMI 26.1
--- NOTE | 2018-10-09 12:16 | PFTCOMP ---
COMPLETE PULMONARY FUNCTION TEST INTERPRETATION Brief HPI: Patient is a 73 year old female, currently under the care of myself, who presents to [facility] for complete pulmonary function tests secondary to diagnosis of dyspnea. Respiratory therapist reports good effort and reproducible results. Interpretation: Forced expiration spirometry shows no large airways obstructive ventilatory defect with an FEV1 of 84% predicted. There is no significant bronchodilator response by strict ATS criteria. Spirograms are of good quality and plateau normally. The respiratory flow volume loop shows a normal pattern. Lung volumes by body plethysmography show a normal total lung capacity at 4.42 L, 89% predicted. All other lung volumes are within normal limits. Diffusion capacity by carbon monoxide is decreased at 42% predicted. The airway resistance is elevated. No previous pulmonary function tests were available for review. Impression: Isolated reduction diffusion capacity consistent with a pulmonary vascular disorder. No previous studies available for comparison.
== END ==
PROVIDERS: Family Provider Internal Medicine; PCP Internal Medicine; Referring Provider Nurse Practitioner Acute Care; Visit Provider Nurse Practitioner Acute Care
DX: R06.02 Shortness of breath (principal)
CPT/HCPCS: 94060; 94726; 94729

== ENCOUNTER 2018-10-14 07:43 | Emergency (ER) | payer MEDICARE, OTHER, SELFPAY ==
[2018-09-24 09:49] VITALS: BMI 26.1
[2018-10-14] VITALS (7 sets, daily range): BP systolic 122–153; BP diastolic 68–100; PULSE 83–125; RESP 14–18; TEMP 36.4–36.7; O2SAT 94–97; BMI 27.3
[2018-10-14] MEDS: 0.9% Normal Saline 1,000 ML 1000 ML IV ×2 (09:02→10:57)
[2018-10-14] MEDS: Ondansetron 4 MG/2 ML Vial IV (09:03)
[2018-10-14 09:15] LABS: Absolute Lymphocyte Count 1.46 X10^3/ul (0.83-4.51); Absolute Neutrophil Count 7.9 X10^3/uL (2.0-7.7); Basophil# 0.02 X10^3/uL; Basophil% 0.2 % (0-1); Hematocrit 47.3 % (37-47); Hemoglobin 15.4 g/dl (12.0-15.0); Lymphocyte # 1.46 X10^3/ul (4.0); Mean Corp Hgb Conc 32.6 g/gl (32-36); Mean Corpuscular Volume 101.3 fL (81-99); Mean Platelet Vol. 9.8 fl (6.2-12.0); Monocyte# 0.89 X10^3/uL; Monocyte% 8.6 % (0-10); Neutrophil % 75.9 % (47-70); POSITIVE COUNT NO; POSITIVE DIFFERENTIAL NO; POSITIVE MORPHOLOGY NO; Platelet Count 247 K/mm3 (150-450); RBC Distribution Width SD 57.2 fl (35.1-43.9); Red Blood Count 4.67 M/mm3 (4.2-5.4); White Blood Count 10.4 K/mm3 (4.4-11.0)
[2018-10-14 09:24] LABS: Anion Gap 9 (5-15); BUN 16 mg/dL (7-18); BUN/Creat Ratio 18.4 RATIO (10-20); Calcium,Total 8.6 mg/dL (8.5-10.1); Chloride 105 mmol/L (98-107); Creatinine, Serum 0.87 mg/dL (0.55-1.02); EST Glomerular Filtration Rate 68 mL/min (>60); Est Glom Filt Rate - Afr Amer 82 mL/min (>60); Estimated Creatinine Clearance 48.25 ml/min; Glucose 180 mg/dL (74-106); Potassium 3.6 mmol/L (3.5-5.1); Sodium Level 141 mmol/L (136-145)
[2018-10-14] MEDS: Metoclopramide 10 MG/2 ML Vial 5 MG IV (11:33)
--- NOTE | 2018-10-14 13:20 | ED.RN ---
talked with lab, have ran cdiff with no control line showing up. result is stating negative but cannot report. will try to run a 3rd time. pt does not want to eat anything at this time. has been voiding but not having BMs when up to bathroom.
[2018-10-14] MEDS: oxyCODONE 5 MG Tablet PO (14:29)
[2018-10-14] MEDS: Acetaminophen 325 MG Tablet PO (14:29)
--- NOTE | 2018-10-14 16:32 | ED.DCSUM_ITS ---
- ER Visit Summary Date of Service: 10/14/18 Chief Complaint: Abdominal pain with nausea, vomiting diarrhea History of Present Illness: The patient is a 73 F who presents because of nausea and vomiting x1 yesterday. She reports diarrhea started yesterday. She has 4 loose watery stools with no mucus or blood to her knowledge. She completed a course of antibiotics 2 weeks ago. She was started on antibiotics for acute illness of 2440 duration this past week. She is presently taking those antibiotics. She does report subjective fever and chills. She denies visual, ocular auditory symptoms. She denies cardiac or respiratory symptoms. She denies urologic symptoms. Denies myalgias arthralgias. Does claim generalized weakness and orthostatic symptoms. She reports decreased urine output, thirst and dry mouth. Review of systems otherwise negative. Past medical history of hypertension, hypercholesterolemia, nocturnal hypoxia, valvular heart disease, prior pulmonary embolus and Takotsubo cardiomyopathy Physical Examination: Vital signs are remarkable for a heart rate of 125. HEENT is remarkable dry mucosa. Heart is rapid and regular without murmur, gallop or rub lungs clear to auscultation. Abdomen is soft with minimal tenderness. Is no guarding rebound tenderness noted. Lower extreme exam is unremarkable with no swelling, discoloration, ligament distention, palpable coarseness on the distribution deep venous system. Neuro exam is nonfocal. Please read note for complete detail. Test Results: CBC reveals slight increase in H&H of 15.4 and 47.3. Basic minimal panel reveals an elevated glucose of 180 in a nondiabetic. Stool has been sent twice to lab they state the test is negative but they are unable to report because of problems with quality check. There apparently is a missed reading because the amount of mucus. Emergency Department Course and Treatment: IV was established IV fluids. Stool for C. difficile and appropriate blood work Treatment Plan: Discontinue antibiotics Disposition: Discharged home in stable improved condition Impression: 1. Antibiotic induced diarrhea 2. Dehydration moderate 3. Sinus tachycardia documented on monitor 4. Hyperglycemia in a nondiabetic This note was generated with [employer] dictation software. It may contain incorrect words, spelling, and punctuation that were not noted in review of the chart prior to signing ED Disposition - Plan for ED Patient: Disposition: Home or Assisted Living Instructions: ED Dehydration, ED Hyperglycemia New Susp Diabetes Referrals: Margarita Drake DO [Primary Care Provider] - 3-5 Days Additional Instructions: Your diarrhea in all likelihood is secondary to the antibiotics. Recommend discontinuing. Your blood sugar is elevated and will need to be reassessed in 5-7 days by your primary care physician, Dr. Drake.
== END 2018-10-14 16:39 | disposition home or self-care (01) ==
PROVIDERS: Emergency Provider Emergency Medicine; Family Provider Internal Medicine; PCP Internal Medicine
DX: K52.1 Toxic gastroenteritis and colitis (principal); T36.95XA Adverse effect of unspecified systemic antibiotic, initial encounter; Y92.9 Unspecified place or not applicable; E86.0 Dehydration; R00.0 Tachycardia, unspecified; R73.9 Hyperglycemia, unspecified; I10 Essential (primary) hypertension; Z79.899 Other long term (current) drug therapy
CPT/HCPCS: 80048; 85025; 87493; 96361; 96374; 96375; 99284; J7030; A4216; J2405

== ENCOUNTER → 2018-10-24 12:39 | Outpatient (CLI) | payer MEDICARE, OTHER, SELFPAY ==
[2018-10-22 09:23] VITALS: BMI 27.1
--- NOTE | 2018-10-24 12:55 | ECHOD_ITS ---
Reason For Study: DYSPNEA/SOB Procedure This was a 2D Doppler, Color Flow transthoracic echocardiogram. Exam performed in department. Left Ventricle Normal LV size. Left ventricular systolic function is normal. The estimated ejection fraction is 65 %. Stage 1 diastolic dysfunction. No regional wall motion abnormalities noted. Right Ventricle Normal RV size. Normal systolic function. Atria Normal left atrium. Normal right atrium. Mitral Valve Normal mitral valve. Tricuspid Valve Normal tricuspid valve. Mild (1+) tricuspid valve insufficiency. Pulmonary artery systolic pressure is 38 mmHg. Aortic Valve Normal aortic valve. Trisinus/trileaflet aortic valve. Pulmonic Valve Normal pulmonic valve. Great Vessels Normal aortic root. The pulmonary artery is normal size. Normal inferior vena cava. Pericardium/Pleural No pericardial effusion. MMode/2D Measurements & Calculations LVIDd: 4.4 cm IVSd: 1.0 cm Ao root diam: 4.0 cm LVIDs: 3.2 cm LVPWd: 1.0 cm LA dimension: 3.9 cm FS: 26.3 % LAV(MOD-sp4): 31.7 ml LA A4 area: 13.0 cm2 RA A4 area: 11.6 cm2 Time Measurements MV dec time: 0.38 sec Doppler Measurements & Calculations MV E max stuart: 36.6 cm/sec Lat Peak E' Stuart: 4.6 cm/sec Med Peak E' Stuart: 4.3 cm/sec MV A max stuart: 84.2 cm/sec E/E' lat: 8.0 E/E' med: 8.5 MV E/A: 0.43 MV V2 max: 114.7 cm/sec MV P1/2t max stuart: 61.9 cm/sec Ao V2 max: 126.8 cm/sec MV max P.3 mmHg MV P1/2t: 76.3 msec Ao max P.4 mmHg MV V2 mean: 52.2 cm/sec MV dec slope: 237.7 cm/sec2 MV mean P.4 mmHg MVA(P1/2t): 2.9 cm2 MV V2 VTI: 19.0 cm AI max stuart: 443.8 cm/sec LV V1 max: 81.5 cm/sec PA V2 max: 104.0 cm/sec AI max P.8 mmHg LV V1 max P.7 mmHg AI dec slope: 367.2 cm/sec2 AI P1/2t: 353.9 msec TR max stuart: 291.1 cm/sec TR max P.9 mmHg Interpretation Summary Normal LV size. Left ventricular systolic function is normal. The estimated ejection fraction is 65 %. Stage 1 diastolic dysfunction. Mild (1+) tricuspid valve insufficiency. Ordering Physician: Demetra Tracy Referring Physician: Demetra Tracy Performed By: Elías Jacobsen RCS
== END ==
PROVIDERS: Family Provider Internal Medicine; PCP Internal Medicine; Referring Provider Physician Assistant Medical; Visit Provider Physician Assistant Medical
DX: I25.10 Atherosclerotic heart disease of native coronary artery without angina pectoris (principal)
CPT/HCPCS: 93306

== ENCOUNTER → 2018-10-26 07:58 | Outpatient (CLI) | payer MEDICARE, OTHER, SELFPAY ==
[2018-08-15 10:01] VITALS: BMI 26.1
[2018-10-22 09:23] VITALS: BMI 27.1
--- NOTE | 2018-10-26 08:06 | RAD_ITS ---
STUDY: X-RAY - ESOPHAGUS (BARIUM SWALLOW) WITH FLUOROSCOPY REASON FOR EXAM: Female, 73 years old. Dysphagia. History of hiatal hernia. TECHNIQUE: 18 view(s) of the esophagus were obtained following swallowing of barium. FLUOROSCOPY TIME (if supplied): (0:47) minutes/seconds COMPARISON: Comparison is made with prior examination dated March 17, 2013. FINDINGS: There is no demonstrated esophageal foreign body. There is no demonstrated stricture or mucosal abnormality. Normal gastroesophageal junction, without a demonstrated hiatal hernia. The patient ingested a 12 mm tablet at bedtime. The tablet is trapped at the gastroesophageal junction. There is atherosclerotic calcification of the aortic arch with tortuosity of the descending aorta. Normal visualized pulmonary parenchyma. There are diffuse degenerative changes of the visualized thoracic spine. RAD/Esophagus Only IMPRESSION: The 12 mm tablet and barium is trapped at the gastroesophageal junction. Electronically Signed: Florian Valenzuela MD at 10:39 EST , Service support ,
== END ==
PROVIDERS: Family Provider Internal Medicine; PCP Internal Medicine; Referring Provider Internal Medicine; Visit Provider Internal Medicine
DX: R13.10 Dysphagia, unspecified (principal)
CPT/HCPCS: 74220

== ENCOUNTER → 2018-11-12 15:00 | Outpatient (CLI) | payer MEDICARE, OTHER, SELFPAY ==
[2018-10-29 09:25] VITALS: BMI 26.4
--- NOTE | 2018-11-12 10:30 | EGD_PTH ---
PATIENT: BEN MAHARAJ LOC: [facility] U#:[id number] AGE/SX: 80/F ROOM: RE11/12/[address]: Dr. Edil Rodriguez MD : 1945 BED: DIS: SPEC #: [id number] RECD: 11/12/18 14:34 STATUS: MARY VON #: [id number] AVI: 11/12/18 10:[address]: Edil Rodriguez DEPT: SURGICAL PATHOLOGY RECD BY: Estefany Eastman ENTERED: 11/12/18 15:45 SP TYPE: EGD BIOPSY OT DR: Dr. Margarita Drake, [facility] Tissues: Esophageal mucous membrane Procedures: Surgery Specimen Level IV HEADER OPERATION: EGD with dilatation / biopsy PRE-OP DIAGNOSIS: Dysphagia TISSUE SUBMITTED: Esophagus biopsy, rule out EE MICROSCOPIC DIAGNOSIS Esophageal biopsy: Fragments of squamous epithelium with minimal chronic inflammation and reactive changes. See comment. ESA:nava 11/13/18 COMMENT Increased number of eosinophils consistent with eosinophilic esophagitis are not seen. Correlation with clinical, endoscopic findings and appropriate follow up are necessary. MICROSCOPIC DESCRIPTION Slides are reviewed. GROSS DESCRIPTION Received in fixative is one container labeled with the patient's name and designated esophagus. The specimen consists of multiple irregular fragments of light valenzuela soft tissue that in aggregate measure 0.5 x 0.2 x 0.1 cm. The specimen is totally submitted in one cassette. / AM:nava 11/12/18 TC:5 [facility]: [id number]
== END ==
PROVIDERS: Family Provider Internal Medicine; PCP Internal Medicine; Referring Provider Internal Medicine Gastroenterology; Visit Provider Internal Medicine Gastroenterology
DX: R13.10 Dysphagia, unspecified (principal)
CPT/HCPCS: 88305

== ENCOUNTER → 2018-12-04 14:55 | Outpatient (CLI) | payer MEDICARE, OTHER, SELFPAY ==
[2018-12-04 14:13] VITALS: BMI 26.4
[2018-12-04 15:26] LABS: Absolute Lymphocyte Count 0.75 X10^3/ul (0.83-4.51); Absolute Neutrophil Count 4.9 X10^3/uL (2.0-7.7); Basophil# 0.01 X10^3/uL; Basophil% 0.2 % (0-1); Hematocrit 42.7 % (37-47); Hemoglobin 13.9 g/dl (12.0-15.0); Lymphocyte # 0.75 X10^3/ul (4.0); Lymphocyte % 13.1 % (19-41); Mean Corp Hgb Conc 32.6 g/gl (32-36); Mean Corpuscular Hgb 32.4 pg (27.0-32.0); Mean Corpuscular Volume 99.5 fL (81-99); Monocyte# 0.02 X10^3/uL; Monocyte% 0.3 % (0-10); Neutrophil # 4.93 X10^3/uL (2.7-7.7); Neutrophil % 86.1 % (47-70); POSITIVE COUNT NO; POSITIVE DIFFERENTIAL NO; POSITIVE MORPHOLOGY NO; Platelet Count 377 K/mm3 (150-450); RBC Distribution Width CV 14.8 % (11.6-14.6); RBC Distribution Width SD 52.8 fl (35.1-43.9); Red Blood Count 4.29 M/mm3 (4.2-5.4); White Blood Count 5.7 K/mm3 (4.4-11.0)
[2018-12-04 16:03] LABS: Anion Gap 7 (5-15); BUN 13 mg/dL (7-18); BUN/Creat Ratio 12.9 RATIO (10-20); Calcium,Total 8.6 mg/dL (8.5-10.1); Chloride 107 mmol/L (98-107); Creatinine, Serum 1.01 mg/dL (0.55-1.02); EST Glomerular Filtration Rate 57 mL/min (>60); Est Glom Filt Rate - Afr Amer 69 mL/min (>60); Glucose 313 mg/dL (74-106); Potassium 4.1 mmol/L (3.5-5.1); Sodium Level 140 mmol/L (136-145)
[2018-12-04 16:13] LABS: BNP,B-Type NATRIURETIC PEPTIDE 46.1 pg/mL (0-100)
== END ==
PROVIDERS: Nurse Practitioner Acute Care; Family Provider Internal Medicine; PCP Internal Medicine; Visit Provider Internal Medicine Critical Care Medicine
DX: R06.02 Shortness of breath (principal)
CPT/HCPCS: 36415; 80048; 83880; 85025

== ENCOUNTER → 2018-12-06 | Outpatient (CLI) | payer MEDICARE, OTHER, SELFPAY ==
[2018-12-04 14:13] VITALS: BMI 26.4
[2018-12-06 13:04] LABS: Absolute Lymphocyte Count 1.72 X10^3/ul (0.83-4.51); Absolute Neutrophil Count 4.8 X10^3/uL (2.0-7.7); Basophil# 0.01 X10^3/uL; Basophil% 0.1 % (0-1); Eosinophil# 0.01 X10^3/uL; Eosinophils% 0.1 % (0-5); Hematocrit 40.9 % (37-47); Hemoglobin 13.4 g/dl (12.0-15.0); Lymphocyte # 1.72 X10^3/ul (4.0); Lymphocyte % 24.7 % (19-41); Mean Corp Hgb Conc 32.8 g/gl (32-36); Mean Corpuscular Hgb 32.1 pg (27.0-32.0); Mean Corpuscular Volume 98.1 fL (81-99); Mean Platelet Vol. 10.1 fl (6.2-12.0); Monocyte# 0.37 X10^3/uL; Monocyte% 5.3 % (0-10); Neutrophil # 4.83 X10^3/uL (2.7-7.7); Neutrophil % 69.7 % (47-70); Platelet Count 336 K/mm3 (150-450); RBC Distribution Width CV 14.6 % (11.6-14.6); RBC Distribution Width SD 50.8 fl (35.1-43.9); Red Blood Count 4.17 M/mm3 (4.2-5.4)
[2018-12-06 13:06] LABS: POSITIVE COUNT NO; POSITIVE DIFFERENTIAL NO; POSITIVE MORPHOLOGY NO
[2018-12-06 13:22] LABS: ALB/GLOB Ratio 1.2 RATIO (0.9-2.4); AST(SGOT) 16 U/L (15-37); Alanine Aminotransfer ALT/SGPT 18 U/L (13-56); Albumin, Serum 3.8 g/dL (3.2-5.0); Alkaline Phosphatase 66 U/L (45-117); Anion Gap 10 (5-15); BUN 15 mg/dL (7-18); BUN/Creat Ratio 22.8 RATIO (10-20); Calcium,Total 8.3 mg/dL (8.5-10.1); Chloride 105 mmol/L (98-107); Creatinine, Serum 0.66 mg/dL (0.55-1.02); EST Glomerular Filtration Rate 93 mL/min (>60); Est Glom Filt Rate - Afr Amer 113 mL/min (>60); Globulin 3.2 g/dL (2.2-4.2); Glucose 114 mg/dL (74-106); Potassium 3.7 mmol/L (3.5-5.1); Sodium Level 141 mmol/L (136-145)
== END | disposition home or self-care (01) ==
LOC: MTLAB 09:29
PROVIDERS: Family Provider Internal Medicine; PCP Internal Medicine; Referring Provider Internal Medicine Rheumatology; Visit Provider Internal Medicine Rheumatology
DX: M06.4 Inflammatory polyarthropathy (principal); M79.7 Fibromyalgia; M17.0 Bilateral primary osteoarthritis of knee; M16.0 Bilateral primary osteoarthritis of hip; K21.9 Gastro-esophageal reflux disease without esophagitis; M21.40 Flat foot [pes planus] (acquired), unspecified foot; I10 Essential (primary) hypertension; E11.9 Type 2 diabetes mellitus without complications; G25.81 Restless legs syndrome; Z85.43 Personal history of malignant neoplasm of ovary; Z79.899 Other long term (current) drug therapy
CPT/HCPCS: 36415; 80053; 85025

== ENCOUNTER 2018-12-10 09:26 | Inpatient (IN) | payer MEDICARE, OTHER, SELFPAY ==
[2018-12-04 14:13] VITALS: BMI 26.4
[2018-12-10 09:27] VITALS: BP 115/84; PULSE 111; RESP 18; TEMP 36.4; O2SAT 99; BMI 27.4
--- NOTE | 2018-12-10 09:35 | CT_ITS ---
STUDY: CT ABDOMEN AND PELVIS WITH CONTRAST REASON FOR EXAM: Female, 73 years old. Lower abdominal pain with severe diarrhea. RADIATION DOSAGE (If Supplied By Facility): CTDIvol = ( 12.9 ) mGy, DLP = ( 581.06 ) mGycm TECHNIQUE: Transaxial images were obtained from the dome of the diaphragm to the symphysis pubis without oral contrast. 100 IV Isovue 300 was administered. Sagittal and coronal images were reconstructed. Individualized dose optimization techniques were used for this CT. COMPARISON: Comparison is made with prior study dated January 22, 2017. FINDINGS: Stable increased linear markings at the left lung base suggestive of a scarring. The visualized portions of the heart are within normal limits. There is decreased attenuation of the liver consistent with steatosis. The patient is status post cholecystectomy. Normal spleen. Normal pancreas. Normal bilateral adrenal glands. Normal right kidney. Stable 1.6 cm cyst in the lower pole of the left kidney. There is a small hiatal hernia. Normal small intestine. There are multiple colonic diverticula consistent with diverticulosis. The patient is status post appendectomy. There is scattered atherosclerotic calcification of the abdominal aorta, without a demonstrated aneurysm. Normal inferior vena cava. Normal retroperitoneum. Normal urinary bladder. There is absence of the uterus consistent with a prior hysterectomy. Normal abdominal wall. There are diffuse degenerative changes of the visualized lumbar spine. Prior multilevel interpedicular screw and wire fixation. Loss of height of the L1 vertebrae. Prior right total hip replacement. CT/Abdomen/Pelvis W IV Cont ONLY IMPRESSION: Fatty infiltration of the liver. Scattered sigmoid diverticula. Electronically Signed: Florian Valenzuela, at 11:52 EDT , Service support ,
--- NOTE | 2018-12-10 09:44 | ED.DCSUM_ITS ---
- ER Visit Summary Date of Service: 12/10/18 Chief Complaint: Nausea, vomiting, diarrhea History of Present Illness: The patient is a 73 F presents to the emergency department with 2 days of nausea, vomiting, diarrhea. States her symptoms began with some cramping abdominal pain. She was nauseated with 2 bouts of emesis. She states she just been having dry heaves since. She is also had multiple bouts of loose watery diarrhea. She states that this is the third time this is happened within the past 2 months. She had 2- C. difficile studies. She did have a history of colitis a few years ago. She underwent colonoscopy which was unremarkable. She denies fever but has had chills and sweats. She describes just generalized illness and malaise. She denies any recent antibiotics. Physical Examination: Vital signs reviewed General: Well-nourished, well-developed Head: Normocephalic, atraumatic Eyes: Pupils equal and reactive, extraocular muscles intact Neck, supple, no lymphadenopathy Heart: Regular rate and rhythm Respiratory: No distress, clear bilaterally Abdomen: Soft, nontender, nondistended, no peritoneal signs Back: Nontender Extremities: Nontender, no edema, no cords Skin: Normal color no rash Neuro: Alert and oriented, no focal or lateralizing deficits Test Results: [] Emergency Department Course and Treatment: The patient presents with multiple complaints. She does have a history of recurrent urinary tract infection that was Klebsiella and ESBL. She has had some increasing urinary frequency and urgency. Her abdomen is only mildly tender. She had no focal tenderness. IV was established. Screening labs were obtained. She does have a leukocytosis. Her urine does show evidence of infection. Culture was added. Patient's lactate is elevated and I do feel that likely secondary to dehydration rather than endorgan dysfunction. Her CT shows no acute process. At this point, I do feel the patient can benefit from admission for IV hydration and antibiotic treatment of urinary tract infection. She was discussed with the hospitalist and will be admitted. Treatment Plan: [] Disposition: Admission Impression: 1. Dehydration 2. Diarrhea 3. Urinary tract infection This note was generated with [employer] dictation software. It may contain incorrect words, spelling, and punctuation that were not noted in review of the chart prior to signing ED Disposition - Plan for ED Patient: Referrals: Margarita Drake DO [Primary Care Provider] -
[2018-12-10] MEDS: Ondansetron 4 MG/2 ML Vial IV (10:24)
[2018-12-10] MEDS: 0.9% Normal Saline 1,000 ML 1000 ML IV (10:24)
[2018-12-10 10:36] LABS: Mucous, Urine 0 SEEN /hpf (<or=2+)
[2018-12-10 10:45] LABS: Absolute Lymphocyte Count 2.37 X10^3/ul (0.83-4.51); Absolute Neutrophil Count 8.4 X10^3/uL (2.0-7.7); Basophil# 0.03 X10^3/uL; Basophil% 0.3 % (0-1); Eosinophil# 0.09 X10^3/uL; Eosinophils% 0.8 % (0-5); Hematocrit 47.1 % (37-47); Hemoglobin 15.8 g/dl (12.0-15.0); Lymphocyte # 2.37 X10^3/ul (4.0); Lymphocyte % 20.3 % (19-41); Mean Corp Hgb Conc 33.5 g/gl (32-36); Mean Corpuscular Hgb 32.2 pg (27.0-32.0); Mean Corpuscular Volume 95.9 fL (81-99); Mean Platelet Vol. 9.9 fl (6.2-12.0); Monocyte# 0.76 X10^3/uL; Monocyte% 6.5 % (0-10); Neutrophil # 8.42 X10^3/uL (2.7-7.7); Neutrophil % 71.8 % (47-70); Platelet Count 431 K/mm3 (150-450); RBC Distribution Width CV 14.3 % (11.6-14.6); Red Blood Count 4.91 M/mm3 (4.2-5.4); White Blood Count 11.7 K/mm3 (4.4-11.0)
[2018-12-10 10:49] LABS: POSITIVE COUNT NO; POSITIVE DIFFERENTIAL NO; POSITIVE MORPHOLOGY NO
[2018-12-10 10:51] LABS: Bacteria 4+ /hpf (None Seen); Color, Urine Yellow (Yellow); Glucose, Dipstick Normal (Normal); Ketone-Dipstick Negative (Negative); Leukocyte Esterase-Dipstick 500 /ul (Negative); Nitrite-Dipstick Negative (Negative); Occult Blood-Urine Negative /ul (Negative); Protein-Dipstick 30 mg/dl (Negative); Red Blood Cells-Urine 0-5 SEEN /hpf (0-5); Specific Gravity, Urine 1.015 (1.002-1.030); Squamous Epithelial Cells - UA 0-5 SEEN /hpf (5-10); Urine Bilirubin Dipstick Negative (Negative); Urine Clarity Cloudy (Clear); Urine Urobilinogen Normal (Normal); Urine pH 6.5 (5.0 - 8.0); White Blood Cells 10-25 SEEN /hpf (0-5)
[2018-12-10 10:55] LABS: ALB/GLOB Ratio 1.2 RATIO (0.9-2.4); AST(SGOT) 17 U/L (15-37); Alanine Aminotransfer ALT/SGPT 18 U/L (13-56); Albumin, Serum 4.5 g/dL (3.2-5.0); Alkaline Phosphatase 79 U/L (45-117); Anion Gap 7 (5-15); BUN 10 mg/dL (7-18); BUN/Creat Ratio 11.9 RATIO (10-20); Calcium,Total 9.2 mg/dL (8.5-10.1); Chloride 102 mmol/L (98-107); Creatinine, Serum 0.84 mg/dL (0.55-1.02); EST Glomerular Filtration Rate 71 mL/min (>60); Est Glom Filt Rate - Afr Amer 85 mL/min (>60); Estimated Creatinine Clearance 49.97 ml/min; Globulin 3.6 g/dL (2.2-4.2); Glucose 157 mg/dL (74-106); Potassium 3.6 mmol/L (3.5-5.1); Protein, Total 8.1 g/dL (6.4-8.2); Sodium Level 138 mmol/L (136-145)
[2018-12-10 11:05] LABS: Lactic Acid 2.8 mmol/L (0.4-2.0)
--- NOTE | 2018-12-10 11:05 | ED.RN ---
NOTIFIED OF LACTIC 2.8.
[2018-12-10] MEDS: Morphine 4 MG/ML Syringe IM (12:27)
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
[2018-12-10 12:50] VITALS: BP 143/83; PULSE 77; RESP 16; TEMP 37.2; O2SAT 96
--- NOTE | 2018-12-10 13:00 | NURSING ---
317 UTI, DIARRHEA KITTOE
[2018-12-10 13:42] VITALS: BMI 26.3
[2018-12-10 14:15] VITALS: BP 139/95; PULSE 90; RESP 16; TEMP 36.8; O2SAT 95
[2018-12-10 14:35] LABS: Reflex Lactate? Y
[2018-12-10 15:25] VITALS: O2SAT 96
[2018-12-10 15:40] LABS: Lactic Acid 1.2 mmol/L (0.4-2.0)
[2018-12-10 16:35] LABS: Bedside Glucose 107 mg/dL (70-110)
[2018-12-10] MEDS: oxyCODONE 5 MG Tablet PO (18:37)
[2018-12-10 20:15] VITALS: BP 145/79; PULSE 75; RESP 16; TEMP 37.3; O2SAT 97
[2018-12-10] MEDS: Pantoprazole Sodium 40 MG Tablet PO (21:41)
[2018-12-10] MEDS: DULoxetine Hcl 30 MG Capsule PO (21:41)
[2018-12-10] MEDS: Zolpidem Tartrate 5 MG Tablet PO (21:41)
[2018-12-10] MEDS: Gabapentin 600 MG Tablet PO (21:42)
[2018-12-10 21:55] LABS: Bedside Glucose 127 mg/dL (70-110)
[2018-12-11 02:15] VITALS: BP 118/68; PULSE 74; RESP 18; TEMP 36.6; O2SAT 94
[2018-12-11] MEDS: oxyCODONE 5 MG Tablet PO ×3 (03:40→18:29)
[2018-12-11 05:50] LABS: Absolute Lymphocyte Count 1.36 X10^3/ul (0.83-4.51); Absolute Neutrophil Count 3.1 X10^3/uL (2.0-7.7); Basophil# 0.02 X10^3/uL; Basophil% 0.4 % (0-1); Eosinophil# 0.06 X10^3/uL; Eosinophils% 1.2 % (0-5); Hematocrit 40.8 % (37-47); Hemoglobin 13.4 g/dl (12.0-15.0); Lymphocyte # 1.36 X10^3/ul (4.0); Lymphocyte % 26.8 % (19-41); Mean Corp Hgb Conc 32.8 g/gl (32-36); Mean Corpuscular Hgb 32.4 pg (27.0-32.0); Mean Corpuscular Volume 98.6 fL (81-99); Mean Platelet Vol. 9.8 fl (6.2-12.0); Monocyte# 0.51 X10^3/uL; Neutrophil # 3.11 X10^3/uL (2.7-7.7); Neutrophil % 61.2 % (47-70); Platelet Count 281 K/mm3 (150-450); RBC Distribution Width CV 14.5 % (11.6-14.6); RBC Distribution Width SD 49.6 fl (35.1-43.9); Red Blood Count 4.14 M/mm3 (4.2-5.4); White Blood Count 5.1 K/mm3 (4.4-11.0)
[2018-12-11 05:53] LABS: POSITIVE COUNT NO; POSITIVE DIFFERENTIAL NO; POSITIVE MORPHOLOGY NO
[2018-12-11 06:09] LABS: Anion Gap 7 (5-15); BUN 8 mg/dL (7-18); BUN/Creat Ratio 15.2 RATIO (10-20); Calcium,Total 7.7 mg/dL (8.5-10.1); Chloride 109 mmol/L (98-107); Creatinine, Serum 0.53 mg/dL (0.55-1.02); EST Glomerular Filtration Rate 120 mL/min (>60); Est Glom Filt Rate - Afr Amer 146 mL/min (>60); Estimated Creatinine Clearance 41.97 ml/min; Glucose 126 mg/dL (74-106); Potassium 3.7 mmol/L (3.5-5.1); Sodium Level 141 mmol/L (136-145)
[2018-12-11 06:15] LABS: Bedside Glucose 137 mg/dL (70-110)
[2018-12-11 08:15] VITALS: BP 139/87; PULSE 76; RESP 16; TEMP 37; O2SAT 96
[2018-12-11] MEDS: Magnesium Oxide 400 MG Tablet PO (08:23)
[2018-12-11] MEDS: Pantoprazole Sodium 40 MG Tablet PO ×2 (08:24→21:23)
[2018-12-11] MEDS: DULoxetine Hcl 30 MG Capsule PO (08:24)
[2018-12-11] MEDS: Enoxaparin 40 MG/0.4 ML Syringe SC (08:24)
[2018-12-11] MEDS: Vitamin E 400 UNITS Capsule 800 UNITS PO (08:24)
[2018-12-11] MEDS: Gabapentin 600 MG Tablet PO ×3 (08:25→17:46)
--- NOTE | 2018-12-11 08:58 | PN_ITS ---
Patient Problems: Active and Suspected Problems (Last Reviewed 12/10/18 @ 12:52 by Luis Alberto Aguilar MD) UTI (urinary tract infection) (Acute) Subjective: Patient is a 73-year-old lady with multiple comorbidities presenting with abdominal discomfort associated with diarrhea. Evaluation in the emergency department was consistent with acute cystitis admitted to regular nursing floor for further management 12/11/2018: Patient seen urine culture still pending. Objective: GENERAL: cooperative HEENT: Atraumatic; moist oral mucosa EYES; Anicteric, Normal Conjunctiva NECK; supple, normal thyroid, no distended JVD. RESPIRATORY: Diminished to auscultation bilaterally, CARDIOVASCULAR: Regular S1 S2, no audible murmurs GI: soft, suprapubic tenderness : No Renal angle tenderness; EXTREMITIES: No edema, no clubbing, no cyanosis. MUSCULOSKELETAL: No Joint Tenderness; no muscle waisting NEURO: Awake; no lateralizing signs. SKIN: No Rash PSYCH; Normal affect Vitals/I&O's: Vital Signs Temp Pulse Resp BP Pulse Ox 98.6 F 76 16 139/87 H 96 12/11/18 08:15 12/11/18 08:15 12/11/18 08:15 12/11/18 08:15 12/11/18 08:15 Oxygen Delivery Method Room Air Weight: 69.6 kg Body Mass Index (BMI) 26.3 Finger Stick Blood Glucose 172 Intake and Output for Last 24 Hours 12/09/18 12/10/18 12/11/18 23:59 23:59 23:59 Intake Total 2316 / 2316 Balance 2316 / 2316 Laboratory Results 12/10/18 10:25: WBC 11.7 H, RBC 4.91, Hgb 15.8 H, Hct 47.1 H, MCV 95.9, MCH 32.2 H, MCHC 33.5, RDW 14.3, RDW Differential 48.0 H, Plt Count 431, MPV 9.9, Immature Gran % (Auto) 0.300, Neut % (Auto) 71.8 H, Lymph % (Auto) 20.3, [place] % (Auto) 6.5, Eos % (Auto) 0.8, Baso % (Auto) 0.3, Absolute Neuts (auto) 8.4 H, Absolute Lymphs (auto) 2.37, Total Counted Not Reportable 12/10/18 10:25: Sodium 138, Potassium 3.6, Chloride 102, Carbon Dioxide 29.0, Anion Gap 7, BUN 10, Creatinine 0.84, Estim Creat Clear Calc 49.97, Est GFR (MDRD) Af Amer 85, Est GFR (MDRD) Non-Af 71, BUN/Creatinine Ratio 11.9, Glucose 157 H, Calcium 9.2, Total Bilirubin 0.70, AST 17, ALT 18, Alkaline Phosphatase 79, Total Protein 8.1, Albumin 4.5, Globulin 3.6, Albumin/Globulin Ratio 1.2 12/10/18 10:25: Lactic Acid 2.8 H 12/10/18 10:25: Urine Color Yellow, Urine Clarity Cloudy, Urine pH 6.5, Ur Specific [place] 1.015, Urine Protein 30 H, Urine Glucose (UA) Normal, Urine Ketones Negative, Urine Occult Blood Negative, Urine Nitrite Negative, Urine Bilirubin Negative, Urine Urobilinogen Normal, Ur Leukocyte Esterase 500 H, Urine RBC 0-5 SEEN, Urine WBC 10-25 SEEN, Ur Squamous Epith Cells 0-5 SEEN, Urine Bacteria 4+, Urine Mucus 0 SEEN 12/10/18 15:15: Lactic Acid 1.2 12/10/18 16:29: POC Glucose 107 12/10/18 21:49: POC Glucose 127 H 12/11/18 05:28: WBC 5.1, RBC 4.14 L, Hgb 13.4, Hct 40.8, MCV 98.6, MCH 32.4 H, MCHC 32.8, RDW 14.5, RDW Differential 49.6 H, Plt Count 281, MPV 9.8, Immature Gran % (Auto) 0.400, Neut % (Auto) 61.2, Lymph % (Auto) 26.8, [place] % (Auto) 10.0, Eos % (Auto) 1.2, Baso % (Auto) 0.4, Absolute Neuts (auto) 3.1, Absolute Lymphs (auto) 1.36, Total Counted Not Reportable 12/11/18 05:28: Sodium 141, Potassium 3.7, Chloride 109 H, Carbon Dioxide 25.0, Anion Gap 7, BUN 8, Creatinine 0.53 L, Estim Creat Clear Calc 41.97, Est GFR (MDRD) Af Amer 146, Est GFR (MDRD) Non-Af 120, BUN/Creatinine Ratio 15.2, Glucose 126 H, Calcium 7.7 L 12/11/18 06:08: POC Glucose 137 H Current Medications Acetaminophen (Tylenol) 650 mg PO Q6H PRN PRN PRN Reason: Mild Pain (1-3)/Temp > 100.7 F Al Hydroxide/Mg Hydroxide (Mylanta Ii) 30 ml PO Q6H PRN PRN PRN Reason: Gastric Burning Dextrose (D50w Syringe) 0 gm IV X1 PRN; Protocol PRN Reason: Hypoglycemia Duloxetine HCl (Cymbalta) 30 mg PO BID [facility] Last Admin: 12/11/18 08:24 Dose: 30 mg Enoxaparin Sodium (Lovenox) 40 mg SC DAILY@1000 [facility] Last Admin: 12/11/18 08:24 Dose: 40 mg Gabapentin (Neurontin) 600 mg PO TIDCM [facility] Last Admin: 12/11/18 08:25 Dose: 600 mg Glucagon () 1 mg IM .X1 PRN PRN Reason: Hypoglycemia Guaifenesin (Robitussin) 20 ml PO Q4H PRN PRN PRN Reason: COUGH Potassium Chloride/Sodium Chloride () 1,000 mls @ 125 mls/hr IV .Q8H [facility] Stop: 12/12/18 07:59 Last Admin: 12/11/18 08:23 Dose: 125 mls/hr Meropenem 500 mg/ Sodium (Chloride) 60 mls @ 100 mls/hr IV Q8 [facility] Last Admin: 12/11/18 06:02 Dose: 100 mls/hr Insulin Human Lispro (Humalog Jipen (Bkc)) 0 unit SQ TIDAC [facility]; Protocol Last Admin: 12/11/18 06:09 Dose: Not Given Magnesium Oxide (Mag-Ox 400) 400 mg PO DAILY [facility] Last Admin: 12/11/18 08:23 Dose: 400 mg Melatonin (Melatonin) 3 mg PO QHS PRN PRN PRN Reason: INSOMNIA Morphine Sulfate () 4 mg IV Q3H PRN PRN PRN Reason: Severe pain (7-10/10) Ondansetron HCl (Zofran) 4 mg IV Q8H PRN PRN PRN Reason: NAUSEA/VOMITING Oxycodone HCl (Oxyir) 5 mg PO Q4H PRN PRN PRN Reason: Moderate Pain (4-6/10) Last Admin: 12/11/18 03:40 Dose: 5 mg Pantoprazole Sodium (Protonix) 40 mg PO BID [facility] Last Admin: 12/11/18 08:24 Dose: 40 mg Potassium Chloride (K-Dur) 10 meq PO DAILY [facility] Last Admin: 12/11/18 08:23 Dose: 10 meq Sodium Chloride () 5 - 15 ml IV UD PRN PRN Reason: SALINE FLUSH Sodium Chloride ([place] Nasal [place]) 1 spray NASAL BID PRN PRN PRN Reason: NASAL DRYNESS Throat Lozenges (Cepacol Sore Throat Lozenge) 1 lozenge MUCOUS MEM Q2H PRN PRN PRN Reason: Sore throat or cough Vitamin E (Vitamin E) 800 units PO DAILY [facility] Last Admin: 12/11/18 08:24 Dose: 800 units Zolpidem Tartrate (Ambien (Generic)) 5 mg PO QHS PRN PRN PRN Reason: INSOMNIA Last Admin: 12/10/18 21:41 Dose: 5 mg Medical Necessity - Tobacco Use Smoking Status: Never smoker Assessment/Plan All Active Problems (Last Reviewed 12/10/18 @ 12:52 by Luis Alberto Aguilar MD) UTI (urinary tract infection) (Acute) Shortness of breath (Acute) Bronchitis (Acute) Hx pulmonary embolism (Resolved) HCAP (healthcare-associated pneumonia) (Resolved) Cervical post-laminectomy syndrome (Resolved) Pulmonary embolism, bilateral (Resolved) Shingles (Resolved) Patient is a 73-year-old lady with multiple comorbidities presenting with abdominal discomfort associated with diarrhea. Evaluation in the emergency department was consistent with acute cystitis admitted to regular nursing floor for further management 1. Acute cystitis patient admitted to regular nursing floor after cultures have been sent from the ED. Patient has history of Klebsiella pneumonia (ESBL) patient was therefore started on meropenem urine cultures pending with plans to adjust antibiotic therapy based on culture results 2. Diarrhea do suspect acute viral gastroenteritis stool for C. difficile o btaining her PCPs office came back negative 3. History of pulmonary embolism 4. History of nonischemic cardiomyopathy 5. Nonrheumatic heart disease (tricuspid and aortic valve insufficiency 6. Generalized osteoarthritis 7. Hypertension-blood pressure controlled, home medications continued with dose adjustment as needed 8. Diabetes mellitus type 2 patient is on metformin held on admission placed and Accu-Cheks before meals and at bedtime with sliding scale coverage 9. Depression with anxiety 10. Fibromyalgia per history 11. Dyslipidemia 12. DVT prophylaxis SC Lovenox Code Visit Inpatient E&M: 05198 Subs Hosp L3
[2018-12-11] MEDS: Carvedilol 3.125 MG TABLET PO ×2 (11:11→21:23)
[2018-12-11 11:50] LABS: Bedside Glucose 130 mg/dL (70-110)
--- NOTE | 2018-12-11 11:55 | CASEMGMT ---
RN NISHA Face to Face with patient for initial transition planning/care coordination assessment. RN CM introduced self and role at [facility]. Patient lying in bed, alert and oriented, significant other at bedside. Patient willing to participate in assessment and is able to answer all questions appropriately. Care providers, pharmacy, and demographics verified. Patient wishes to discharge home, denies need for home health at this time. Patient states she has no further needs or concerns at this time. CM to follow for discharge planning needs that may arise. PCP: Noelle Specialists: Roxane Deleon Pharmacy: [facility] Insurance: [employer] Prescription Benefit: Yes Living Will/HPOA: Yes to living will, no HPOA LNOK: Sugnificant other Living Arrangements: Patient lives alone in mobile home with 2 steps to enter the home. Transportation: Self, adry DME/C: Patient has shower chair, raised toilet, cane, grab bars, and walker at home. Disposition Plan: Patient to discharge home with family support and follow-up plans in place. [place] RODRIGUEZ, RN, CM
[2018-12-11 14:41] VITALS: BP 121/62; PULSE 72; RESP 16; TEMP 37.1; O2SAT 97
[2018-12-11] MEDS: 0.9% NaCl Peripheral Flush Adult/Peds IV ×2 (15:43→21:23)
[2018-12-11 17:15] LABS: Bedside Glucose 114 mg/dL (70-110)
[2018-12-11 21:08] VITALS: BP 151/84; PULSE 66; RESP 18; TEMP 36.9; O2SAT 95
[2018-12-11] MEDS: Zolpidem Tartrate 5 MG Tablet PO (21:23)
[2018-12-11] MEDS: Morphine 4 MG/ML Syringe IV (21:23)
[2018-12-11] MEDS: Sodium Chloride 0.65% 1 SPRAY SPRAY.BTL 2 SPRAY NASAL (21:25)
[2018-12-11 21:40] LABS: Bedside Glucose 134 mg/dL (70-110)
[2018-12-12 03:30] VITALS: BP 133/79; PULSE 68; RESP 18; TEMP 36.3; O2SAT 95
[2018-12-12] MEDS: Morphine 4 MG/ML Syringe IV (03:34)
[2018-12-12] MEDS: 0.9% NaCl Peripheral Flush Adult/Peds IV ×2 (03:34→03:35)
[2018-12-12 06:29] LABS: Absolute Lymphocyte Count 2.05 X10^3/ul (0.83-4.51); Absolute Neutrophil Count 3.9 X10^3/uL (2.0-7.7); Basophil# 0.04 X10^3/uL; Basophil% 0.6 % (0-1); Eosinophil# 0.12 X10^3/uL; Eosinophils% 1.8 % (0-5); Hematocrit 38.3 % (37-47); Hemoglobin 12.3 g/dl (12.0-15.0); Lymphocyte # 2.05 X10^3/ul (4.0); Lymphocyte % 31.1 % (19-41); Mean Corp Hgb Conc 32.1 g/gl (32-36); Mean Corpuscular Hgb 31.9 pg (27.0-32.0); Mean Corpuscular Volume 99.5 fL (81-99); Mean Platelet Vol. 9.5 fl (6.2-12.0); Monocyte# 0.45 X10^3/uL; Monocyte% 6.8 % (0-10); Neutrophil # 3.92 X10^3/uL (2.7-7.7); Neutrophil % 59.5 % (47-70); Platelet Count 268 K/mm3 (150-450); RBC Distribution Width CV 14.8 % (11.6-14.6); RBC Distribution Width SD 52.9 fl (35.1-43.9); Red Blood Count 3.85 M/mm3 (4.2-5.4); White Blood Count 6.6 K/mm3 (4.4-11.0)
[2018-12-12 06:31] LABS: POSITIVE COUNT NO; POSITIVE DIFFERENTIAL NO; POSITIVE MORPHOLOGY NO
[2018-12-12] MEDS: oxyCODONE 5 MG Tablet PO ×3 (06:32→21:02)
[2018-12-12 06:46] LABS: Bedside Glucose 119 mg/dL (70-110)
[2018-12-12 06:49] LABS: BUN 6 mg/dL (7-18); BUN/Creat Ratio 9.3 RATIO (10-20); Calcium,Total 7.9 mg/dL (8.5-10.1); Chloride 109 mmol/L (98-107); Creatinine, Serum 0.64 mg/dL (0.55-1.02); EST Glomerular Filtration Rate 96 mL/min (>60); Est Glom Filt Rate - Afr Amer 116 mL/min (>60); Estimated Creatinine Clearance 41.97 ml/min; Glucose 118 mg/dL (74-106); Potassium 4.5 mmol/L (3.5-5.1); Sodium Level 143 mmol/L (136-145)
[2018-12-12 06:50] LABS: Anion Gap 4 (5-15)
[2018-12-12 07:30] VITALS: O2SAT 93
[2018-12-12 07:38] VITALS: BP 141/68; PULSE 72; RESP 18; TEMP 36.7; O2SAT 95
--- NOTE | 2018-12-12 07:49 | PN_ITS ---
Patient Problems: Active and Suspected Problems (Last Reviewed 12/10/18 @ 12:52 by Luis Alberto Aguilar MD) UTI (urinary tract infection) (Acute) Subjective: Patient's urine culture positive for ESBL Klebsiella patient is on appropriate antibiotic therapy patient seen this a.m. complains of feeling tired complain of abdominal discomfort no more diarrhea. Patient did express a desire to stay 1 more day since she felt she was not ready Objective: GENERAL: cooperative HEENT: Atraumatic; moist oral mucosa EYES; Anicteric, Normal Conjunctiva NECK; supple, normal thyroid, no distended JVD. RESPIRATORY: Diminished to auscultation bilaterally, CARDIOVASCULAR: Regular S1 S2, no audible murmurs GI: soft, suprapubic tenderness : No Renal angle tenderness; EXTREMITIES: No edema, no clubbing, no cyanosis. MUSCULOSKELETAL: No Joint Tenderness; no muscle waisting NEURO: Awake; no lateralizing signs. SKIN: No Rash PSYCH; Normal affect Vitals/I&O's: Vital Signs Temp Pulse Resp BP Pulse Ox 97.4 F L 68 18 133/79 H 95 12/12/18 03:30 12/12/18 03:30 12/12/18 03:30 12/12/18 03:30 12/12/18 03:30 Oxygen Delivery Method Room Air Weight: 69.6 kg Body Mass Index (BMI) 26.3 Finger Stick Blood Glucose 172 Intake and Output for Last 24 Hours 12/10/18 12/11/18 12/12/18 23:59 23:59 23:59 Intake Total 4634 / 4634 1998 Output Total 1700 / 1700 Balance 4634 / 4634 299 / 299 Microbiology Past 72 Hours 12/10/18 10:25 Urine, Clean Catch Urine Culture - Preliminary Klebsiella pneumoniae sp pneum Laboratory Results 12/11/18 11:13: POC Glucose 130 H 12/11/18 16:58: POC Glucose 114 H 12/11/18 21:20: POC Glucose 134 H 12/12/18 06:00: WBC 6.6, RBC 3.85 L, Hgb 12.3, Hct 38.3, MCV 99.5 H, MCH 31.9, MCHC 32.1, RDW 14.8 H, RDW Differential 52.9 H, Plt Count 268, MPV 9.5, Immature Gran % (Auto) 0.200, Neut % (Auto) 59.5, Lymph % (Auto) 31.1, [place] % (Auto) 6.8, Eos % (Auto) 1.8, Baso % (Auto) 0.6, Absolute Neuts (auto) 3.9, Absolute Lymphs (auto) 2.05, Total Counted Not Reportable 12/12/18 06:00: Sodium 143, Potassium 4.5, Chloride 109 H, Carbon Dioxide 30.0, Anion Gap 4 L, BUN 6 L, Creatinine 0.64, Estim Creat Clear Calc 41.97, Est GFR (MDRD) Af Amer 116, Est GFR (MDRD) Non-Af 96, BUN/Creatinine Ratio 9.3 L, Glucose 118 H, Calcium 7.9 L 12/12/18 06:30: POC Glucose 119 H Current Medications Acetaminophen (Tylenol) 650 mg PO Q6H PRN PRN PRN Reason: Mild Pain (1-3)/Temp > 100.7 F Al Hydroxide/Mg Hydroxide (Mylanta Ii) 30 ml PO Q6H PRN PRN PRN Reason: Gastric Burning Carvedilol (Coreg) 3.125 mg PO BID [facility] Last Admin: 12/11/18 21:23 Dose: 3.125 mg Dextrose (D50w Syringe) 0 gm IV X1 PRN; Protocol PRN Reason: Hypoglycemia Duloxetine HCl (Cymbalta) 30 mg PO BID@0800,1700 [place] Enoxaparin Sodium (Lovenox) 40 mg SC DAILY@1000 [facility] Last Admin: 12/11/18 08:24 Dose: 40 mg Gabapentin (Neurontin) 600 mg PO TIDCM [facility] Last Admin: 12/11/18 17:46 Dose: 600 mg Glucagon () 1 mg IM .X1 PRN PRN Reason: Hypoglycemia Guaifenesin (Robitussin) 20 ml PO Q4H PRN PRN PRN Reason: COUGH Potassium Chloride/Sodium Chloride () 1,000 mls @ 125 mls/hr IV .Q8H [facility] Stop: 12/12/18 09:59 Last Admin: 12/12/18 03:34 Dose: 125 mls/hr Meropenem 500 mg/ Sodium (Chloride) 60 mls @ 100 mls/hr IV Q8 [facility] Last Admin: 12/12/18 06:32 Dose: 100 mls/hr Insulin Human Lispro (Humalog Kwikpen (Bkc)) 0 unit SQ TIDAC [facility]; Protocol Last Admin: 12/12/18 06:32 Dose: Not Given Magnesium Oxide (Mag-Ox 400) 400 mg PO DAILY [facility] Last Admin: 12/11/18 08:23 Dose: 400 mg Melatonin (Melatonin) 3 mg PO QHS PRN PRN PRN Reason: INSOMNIA Morphine Sulfate () 4 mg IV Q3H PRN PRN PRN Reason: Severe pain (7-10/10) Last Admin: 12/12/18 03:34 Dose: 4 mg Ondansetron HCl (Zofran) 4 mg IV Q8H PRN PRN PRN Reason: NAUSEA/VOMITING Oxycodone HCl (Oxyir) 5 mg PO Q4H PRN PRN PRN Reason: Moderate Pain (4-6/10) Last Admin: 12/11/18 18:29 Dose: 5 mg Oxycodone HCl (Oxyir) 5 mg PO TID [facility] Last Admin: 12/12/18 06:32 Dose: 5 mg Pantoprazole Sodium (Protonix) 40 mg PO BID [facility] Last Admin: 12/11/18 21:23 Dose: 40 mg Potassium Chloride (K-Dur) 10 meq PO DAILY [facility] Last Admin: 12/11/18 08:23 Dose: 10 meq Sodium Chloride () 5 - 15 ml IV UD PRN PRN Reason: SALINE FLUSH Last Admin: 12/12/18 03:35 Dose: 10 ml Sodium Chloride ([place] Nasal [place]) 1 spray NASAL BID PRN PRN PRN Reason: NASAL DRYNESS Sodium Chloride ([place] Nasal [place]) 2 spray NASAL QHS [facility] Last Admin: 12/11/18 21:25 Dose: 2 spray Throat Lozenges (Cepacol Sore Throat Lozenge) 1 lozenge MUCOUS MEM Q2H PRN PRN PRN Reason: Sore throat or cough Vitamin E (Vitamin E) 800 units PO DAILY [facility] Last Admin: 12/11/18 08:24 Dose: 800 units Zolpidem Tartrate (Ambien (Generic)) 5 mg PO QHS PRN PRN PRN Reason: INSOMNIA Last Admin: 12/11/18 21:23 Dose: 5 mg Medical Necessity - Tobacco Use Smoking Status: Never smoker Assessment/Plan All Active Problems (Last Reviewed 12/10/18 @ 12:52 by Luis Alberto Aguilar MD) UTI (urinary tract infection) (Acute) Shortness of breath (Acute) Bronchitis (Acute) Hx pulmonary embolism (Resolved) HCAP (healthcare-associated pneumonia) (Resolved) Cervical post-laminectomy syndrome (Resolved) Pulmonary embolism, bilateral (Resolved) Shingles (Resolved) Patient is a 73-year-old lady with multiple comorbidities presenting with abdominal discomfort associated with diarrhea. Evaluation in the emergency department was consistent with acute cystitis admitted to regular nursing floor for further management 1. Acute cystitis patient secondary to Klebsiella pneumonia (ESBL) patient was on meropenem after urine cultures sent. Diagnosis confirmed with urine cultures consult placed to infectious disease on 12/12/2018. Case discussed with Dr. Drew: Plan is for patient to be discharged home on fosfomycin 2. Diarrhea do suspect acute viral gastroenteritis stool for C. difficile obtaining her PCPs office came back negative 3. History of pulmonary embolism 4. History of nonischemic cardiomyopathy 5. Nonrheumatic heart disease (tricuspid and aortic valve insufficiency 6. Generalized osteoarthritis 7. Hypertension-blood pressure controlled, home medications continued with dose adjustment as needed 8. Diabetes mellitus type 2 patient is on metformin held on admission placed and Accu-Cheks before meals and at bedtime with sliding scale coverage 9. Depression with anxiety 10. Fibromyalgia per history 11. Dyslipidemia 12. DVT prophylaxis SC Lovenox Code Visit Inpatient E&M: 49629 Subs Hosp L2
[2018-12-12] MEDS: Gabapentin 600 MG Tablet PO ×3 (08:36→16:36)
[2018-12-12] MEDS: DULoxetine Hcl 30 MG Capsule PO ×2 (08:37→16:36)
[2018-12-12] MEDS: Pantoprazole Sodium 40 MG Tablet PO ×2 (10:58→21:02)
[2018-12-12] MEDS: Magnesium Oxide 400 MG Tablet PO (10:58)
[2018-12-12] MEDS: Vitamin E 400 UNITS Capsule 800 UNITS PO (10:59)
[2018-12-12] MEDS: Carvedilol 3.125 MG TABLET PO ×2 (11:00→21:02)
[2018-12-12] MEDS: Enoxaparin 40 MG/0.4 ML Syringe SC (11:01)
[2018-12-12 11:31] LABS: Bedside Glucose 103 mg/dL (70-110)
--- NOTE | 2018-12-12 12:39 | PCM.HP.ID ---
Problem List (1) UTI (urinary tract infection) Status: Acute Reason for Consult: uti Consulted by: Dr. Aguilar History of Present Illness: The patient is a 73 year old F with h/o esbl uti who presented 12/10 with 1-2 weeks of intermittent diarrhea, no fever or chills. Had noticed some increased urine odor and frequency, no dysuria. Recent cdiff was neg reportedly. Came to hospital. No blood in stool, no recent travel, no sick contacts, no prior h/o cdiff. Started on meropenem, feeling better, diarrhea resolved. Full ROS performed and neg except as noted above. - Medical History Past Medical History (Chronic Problems): Chronic Problems (Last Reviewed 12/10/18 @ 12:52 by Luis Alberto Aguilar MD) Nocturnal hypoxemia (Chronic) Hyperlipidemia (Chronic) Elevated blood pressure reading without diagnosis of hypertension (Chronic) Other intermediate (current) drug therapy (Chronic) Nonrheumatic aortic (valve) insufficiency (Chronic) Nonrheumatic tricuspid (valve) insufficiency (Chronic) Other secondary pulmonary hypertension (Chronic) Nonischemic cardiomyopathy (Chronic) Fatigue (Chronic) Chronic Klebsiella Urine Colonization (Chronic) Takotsubo cardiomyopathy (Chronic) 2013 25%, 2017-60% GI (gastrointestinal bleed) (Chronic) CAD (coronary artery disease) (Chronic) Mild Lumbar spinal stenosis (Chronic) Chiari malformation (Chronic) Insomnia (Chronic) GERD (gastroesophageal reflux disease) (Chronic) Osteoarthritis of left knee (Chronic) Fibromyalgia (Chronic) Depression (Chronic) Anxiety (Chronic) Chronic pain syndrome (Chronic) Sinusitis, chronic (Chronic) Diabetes mellitus type 2, diet-controlled (Chronic) History of total right hip replacement (Chronic) Hypertension (Chronic) chairi malformations/p posterior decompr (Chronic) Allergies/Adverse Reactions: Allergies rosuvastatin calcium [From Crestor] Allergy (Verified 12/10/18 09:30) Itching simvastatin Allergy (Verified 12/10/18 09:30) Itching Home Medications: Ambulatory Orders Medication Instructions Recorded Pantoprazole Sodium [Protonix] 40 mg PO BID 01/22/17 Metformin HCl [Metformin HCl ER] 500 mg PO 0800 05/23/17 gabapentin 400 mg capsule 600 mg PO TID cap 10/11/17 sodium chloride 0.65 % nasal spray 2 spray INTRANASAL QHS ml 01/09/18 aerosol Oxycodone HCl/Acetaminophen 1 tab PO TID 05/07/18 [Percocet 5/325] ascorbic acid (vitamin C) 1,000 mg 1 g PO DAILY tab 10/22/18 tablet cholecalciferol (vitamin D3) 2,000 2,000 unit PO DAILY 10/22/18 unit capsule duloxetine 30 mg capsule,delayed 30 mg PO BID 10/22/18 release magnesium oxide 400 mg (241.3 mg 400 mg PO DAILY tab 10/22/18 magnesium) tablet potassium chloride ER 10 mEq 10 meq PO DAILY 10/22/18 tablet,extended release vitamin E (dl, acetate) 1,000 unit 1,000 unit PO DAILY 10/22/18 capsule zolpidem 10 mg tablet 10 mg PO QHS tab 10/22/18 Carvedilol [Coreg] 3.125 mg PO BID 12/10/18 Metformin HCl [Glucophage] 500 mg PO BIDCM 12/10/18 - Social History Tobacco Use: non-smoker Vital Signs Temp Pulse Resp BP Pulse Ox 98.0 F 72 18 141/68 H 95 12/12/18 07:38 12/12/18 07:38 12/12/18 07:38 12/12/18 07:38 12/12/18 07:38 Oxygen Delivery Method Room Air Weight: 69.6 kg Body Mass Index (BMI) 26.3 Finger Stick Blood Glucose 172 Microbiology Past 72 Hours 12/10/18 11:29 Blood Culture - Preliminary Blood Culture (Wb) - Left Forearm No growth in 48 hours. 12/10/18 11:55 Blood Culture - Preliminary Blood Culture (Wb) - Left Hand No growth in 48 hours. 12/10/18 10:25 Urine Culture - Preliminary Urine, Clean Catch Klebsiella pneumoniae sp pneum Laboratory Tests Past 24 Hrs 12/12/18 12/12/18 06:00 06:00 WBC 6.6 RBC 3.85 L Hgb 12.3 Hct 38.3 MCV 99.5 H MCH 31.9 MCHC 32.1 RDW 14.8 H RDW Differential 52.9 H Plt Count 268 MPV 9.5 Immature Gran % (Auto) 0.200 Neut % (Auto) 59.5 Lymph % (Auto) 31.1 [place] % (Auto) 6.8 Eos % (Auto) 1.8 Baso % (Auto) 0.6 Absolute Neuts (auto) 3.9 Absolute Lymphs (auto) 2.05 Total Counted Not Reportable Sodium 143 Potassium 4.5 Chloride 109 H Carbon Dioxide 30.0 Anion Gap 4 L BUN 6 L Creatinine 0.64 Estim Creat Clear Calc 41.97 Est GFR (MDRD) Af Amer 116 Est GFR (MDRD) Non-Af 96 BUN/Creatinine Ratio 9.3 L Glucose 118 H Calcium 7.9 L - Other Studies Radiology: [] removed Other Studies: [] Route of nutrition/ use of supplements: [] Nutritional Intake: [] IV Site: [] Wong Catheter: [] - Physical Exam General: Alert, Oriented x3, Cooperative, No apparent distress HEENT: Atraumatic, PERRLA, EOMI Neck: Supple, No Nodes Lungs: Clear to auscultation, Normal air movement Cardiovascular: Regular rate, Regular Rhythm Abdomen: Soft, Non Tender, Non-Distended Extremities: No edema Skin: No rashes IV Site: Peripheral Musculoskeletal: No Tenderness to Palpation of Joints or Extremities Neurological: Cranial nerves II-XII grossly intact - Assessment/Plan Antibiotics: [] Assessment/Plan: [] Active and Suspected Problems (Last Reviewed 12/10/18 @ 12:52 by Luis Alberto Aguilar MD) UTI (urinary tract infection) (Acute) ESBL K.pneumo in ucx. Much improved on meropenem, diarrhea resolved. Ok for one 3gm dose of fosfmycin prior to discharge home, no further abx after that. Will follow, thank you, d/w Dr. Aguilar.
[2018-12-12 13:37] VITALS: BP 114/80; PULSE 63; RESP 16; TEMP 36.2; O2SAT 100
--- NOTE | 2018-12-12 14:30 | NURSING ---
student nurses charting used for educations purposes and reviewed by jeannine
[2018-12-12 16:46] LABS: Bedside Glucose 129 mg/dL (70-110)
[2018-12-12 20:50] VITALS: BP 158/89; PULSE 63; RESP 18; TEMP 36.4; O2SAT 98
[2018-12-12 20:56] LABS: Bedside Glucose 149 mg/dL (70-110)
[2018-12-12] MEDS: Zolpidem Tartrate 5 MG Tablet PO (21:01)
[2018-12-12] MEDS: Sodium Chloride 0.65% 1 SPRAY SPRAY.BTL 2 SPRAY NASAL (21:04)
[2018-12-13 02:55] VITALS: BP 154/82; PULSE 62; RESP 16; TEMP 36.7; O2SAT 97
[2018-12-13] MEDS: oxyCODONE 5 MG Tablet PO (05:18)
[2018-12-13 06:10] LABS: Absolute Lymphocyte Count 1.77 X10^3/ul (0.83-4.51); Basophil# 0.02 X10^3/uL; Basophil% 0.3 % (0-1); Eosinophil# 0.13 X10^3/uL; Hematocrit 40.6 % (37-47); Hemoglobin 13.4 g/dl (12.0-15.0); Lymphocyte # 1.77 X10^3/ul (4.0); Mean Corpuscular Hgb 32.1 pg (27.0-32.0); Mean Corpuscular Volume 97.4 fL (81-99); Mean Platelet Vol. 9.8 fl (6.2-12.0); Monocyte# 0.57 X10^3/uL; Monocyte% 8.7 % (0-10); Neutrophil # 4.04 X10^3/uL (2.7-7.7); Neutrophil % 61.7 % (47-70); Platelet Count 279 K/mm3 (150-450); RBC Distribution Width CV 14.6 % (11.6-14.6); RBC Distribution Width SD 49.8 fl (35.1-43.9); Red Blood Count 4.17 M/mm3 (4.2-5.4); White Blood Count 6.6 K/mm3 (4.4-11.0)
[2018-12-13 06:16] LABS: POSITIVE COUNT NO; POSITIVE DIFFERENTIAL NO; POSITIVE MORPHOLOGY NO
[2018-12-13 06:26] LABS: Anion Gap 4 (5-15); BUN 6 mg/dL (7-18); BUN/Creat Ratio 11.4 RATIO (10-20); Calcium,Total 8.4 mg/dL (8.5-10.1); Chloride 105 mmol/L (98-107); Creatinine, Serum 0.53 mg/dL (0.55-1.02); EST Glomerular Filtration Rate 120 mL/min (>60); Est Glom Filt Rate - Afr Amer 145 mL/min (>60); Estimated Creatinine Clearance 41.97 ml/min; Glucose 116 mg/dL (74-106); Potassium 3.8 mmol/L (3.5-5.1); Sodium Level 138 mmol/L (136-145)
[2018-12-13 07:05] LABS: Bedside Glucose 112 mg/dL (70-110)
[2018-12-13 07:25] VITALS: O2SAT 98
[2018-12-13] MEDS: DULoxetine Hcl 30 MG Capsule PO (09:42)
[2018-12-13] MEDS: Enoxaparin 40 MG/0.4 ML Syringe SC (09:42)
[2018-12-13] MEDS: Gabapentin 600 MG Tablet PO ×2 (09:42→12:03)
[2018-12-13] MEDS: Magnesium Oxide 400 MG Tablet PO (09:43)
[2018-12-13] MEDS: Pantoprazole Sodium 40 MG Tablet PO (09:43)
[2018-12-13] MEDS: Vitamin E 400 UNITS Capsule 800 UNITS PO (09:43)
[2018-12-13] MEDS: Carvedilol 3.125 MG TABLET PO (09:43)
[2018-12-13] MEDS: FOSFOMYCIN TROMETHAMINE 3 GM PACKET PO (09:49)
--- NOTE | 2018-12-13 10:25 | PCM.PN.ID ---
Patient Problems: Active and Suspected Problems (Last Reviewed 12/10/18 @ 12:52 by Luis Alberto Aguilar MD) UTI (urinary tract infection) (Acute) Subjective: Feeling much better, no fever, no diarrhea. - Physical Exam General: Alert, Cooperative, No apparent distress Lungs: Clear to auscultation, Normal air movement Cardiovascular: Regular rate, Regular Rhythm Abdomen: Soft, Non Tender, Non-Distended Skin: No rashes Vital Signs Temp Pulse Resp BP Pulse Ox 98.0 F 62 16 154/82 H 98 12/13/18 02:55 12/13/18 02:55 12/13/18 02:55 12/13/18 02:55 12/13/18 07:25 Oxygen Delivery Method Room Air Weight: 69.6 kg Body Mass Index (BMI) 26.3 Finger Stick Blood Glucose 172 Intake and Output for Last 24 Hours 12/11/18 12/12/18 12/13/18 23:59 23:59 23:59 Intake Total 4634 / 4634 3418 / 3418 890 / 890 Output Total 3700 / 3700 Balance 4634 / 4634 -282 / -282 890 / 890 Microbiology Past 72 Hours 12/10/18 10:25 Urine Culture - Final Urine, Clean Catch Klebsiella pneumoniae sp pneum 12/10/18 11:29 Blood Culture - Preliminary Blood Culture (Wb) - Left Forearm No growth in 48 hours. 12/10/18 11:55 Blood Culture - Preliminary Blood Culture (Wb) - Left Hand No growth in 48 hours. Laboratory Tests Past 24 Hrs 12/13/18 12/13/18 05:30 05:30 WBC 6.6 RBC 4.17 L Hgb 13.4 Hct 40.6 MCV 97.4 MCH 32.1 H MCHC 33.0 RDW 14.6 RDW Differential 49.8 H Plt Count 279 MPV 9.8 Immature Gran % (Auto) 0.300 Neut % (Auto) 61.7 Lymph % (Auto) 27.0 [place] % (Auto) 8.7 Eos % (Auto) 2.0 Baso % (Auto) 0.3 Absolute Neuts (auto) 4.0 Absolute Lymphs (auto) 1.77 Total Counted Not Reportable Sodium 138 Potassium 3.8 Chloride 105 Carbon Dioxide 29.0 Anion Gap 4 L BUN 6 L Creatinine 0.53 L Estim Creat Clear Calc 41.97 Est GFR (MDRD) Af Amer 145 Est GFR (MDRD) Non-Af 120 BUN/Creatinine Ratio 11.4 Glucose 116 H Calcium 8.4 L POC Glucose 12/13/18 12/12/18 12/12/18 06:58 20:52 16:36 POC Glucose 112 H 149 H 129 H 12/12/18 11:26 POC Glucose 103 Medical Necessity - Tobacco Use Smoking Status: Never smoker Route of nutrition/ use of supplements: [] Nutritional Intake: [] IV Site: [] Wong Catheter: [] - Assessment/Plan Antibiotics: [] Assessment/Plan: [] Active and Suspected Problems (Last Reviewed 12/10/18 @ 12:52 by Luis Alberto Aguilar MD) UTI (urinary tract infection) (Acute) ESBL K.pneumo in ucx. Much improved on meropenem, diarrhea resolved. Given one 3gm dose of fosfmycin prior to discharge home today, no further abx after that. Will follow
--- NOTE | 2018-12-13 11:35 | DCINST_ITS ---
- Discharge Diagnoses Current Active Problems: Current Active and Chronic Problems (Last Reviewed 12/10/18 @ 12:52 by Luis Alberto Aguilar MD) UTI (urinary tract infection) (Acute) You will use the following diet at home:: Calorie/Carbohydrate Controlled (specify 1200, 1400, etc) - 1800 peg Your food should be the consistency of: Regular Your liquids should be the consistency of: Regular/Thin Discharge Activity: Return to Normal Activity Weight Bearing Status: Full weight bearing Allergies/Adverse Reactions: Allergies rosuvastatin calcium [From Crestor] Allergy (Verified 12/10/18 09:30) Itching simvastatin Allergy (Verified 12/10/18 09:30) Itching Medications to take at Discharge Pantoprazole Sodium [Protonix] 40 mg PO BID 01/22/17 Metformin HCl [Metformin HCl ER] 500 mg PO 0800 05/23/17 gabapentin 400 mg capsule 600 mg PO TID cap 10/11/17 sodium chloride 0.65 % nasal spray aerosol 2 spray INTRANASAL QHS ml 01/09/18 Oxycodone HCl/Acetaminophen [Percocet 5-325] 1 tab PO TID 05/07/18 ascorbic acid (vitamin C) 1,000 mg tablet 1 g PO DAILY tab 10/22/18 cholecalciferol (vitamin D3) 2,000 unit capsule 2,000 unit PO DAILY 10/22/18 duloxetine 30 mg capsule,delayed release 30 mg PO BID 10/22/18 magnesium oxide 400 mg (241.3 mg magnesium) tablet 400 mg PO DAILY tab 10/22/18 potassium chloride ER 10 mEq tablet,extended release 10 meq PO DAILY 10/22/18 vitamin E (dl, acetate) 1,000 unit capsule 1,000 unit PO DAILY 10/22/18 zolpidem 10 mg tablet 10 mg PO QHS tab 10/22/18 Carvedilol [Coreg] 3.125 mg PO BID 12/10/18 Metformin HCl [Glucophage] 500 mg PO BIDCM 12/10/18 Primary Care Physician: Margarita Drake DO [Primary Care Provider] - Please follow up with your Primary Care Physician in: next visit Test Results: Test results from this visit will be discussed in further detail at your follow- up appointment, if applicable.
[2018-12-13 11:55] LABS: Bedside Glucose 90 mg/dL (70-110)
[2018-12-13 12:09] VITALS: BP 186/87; PULSE 75; RESP 16; O2SAT 98
--- NOTE | 2018-12-13 14:16 | NURSING ---
agree with shift clinical by leonardo peralta.
--- NOTE | 2018-12-14 08:34 | PCM.DC.SUM ---
Discharge Date and Diagnosis Date of Admission: 12/10/18 Date of Discharge: 12/13/18 - Primary Discharge Diagnosis #1 acute cystitis secondary to Klebsiella pneumonia-ESBL #2 acute diarrhea secondary to viral gastroenteritis #3 hypertension #4 type 2 diabetes - Secondary Discharge Diagnosis Chronic Problems (Last Reviewed 12/10/18 @ 12:52 by Luis Alberto Aguilar MD) Nocturnal hypoxemia (Chronic) Hyperlipidemia (Chronic) Elevated blood pressure reading without diagnosis of hypertension (Chronic) Other cook fry (current) drug therapy (Chronic) Nonrheumatic aortic (valve) insufficiency (Chronic) Nonrheumatic tricuspid (valve) insufficiency (Chronic) Other secondary pulmonary hypertension (Chronic) Nonischemic cardiomyopathy (Chronic) Fatigue (Chronic) Chronic Klebsiella Urine Colonization (Chronic) Takotsubo cardiomyopathy (Chronic) 2013 25%, 2017-60% GI (gastrointestinal bleed) (Chronic) CAD (coronary artery disease) (Chronic) Mild Lumbar spinal stenosis (Chronic) Chiari malformation (Chronic) Insomnia (Chronic) GERD (gastroesophageal reflux disease) (Chronic) Osteoarthritis of left knee (Chronic) Fibromyalgia (Chronic) Depression (Chronic) Anxiety (Chronic) Chronic pain syndrome (Chronic) Sinusitis, chronic (Chronic) Diabetes mellitus type 2, diet-controlled (Chronic) History of total right hip replacement (Chronic) Hypertension (Chronic) chairi malformations/p posterior decompr (Chronic) Hospital Course and Treatment Operations: None Procedures: None Summary of Care Provided: The patient is a 73 year old F was seen in the emergency room at [facility] with chief complaint of nausea vomiting and diarrhea times 48 hours. Workup in the emergency room included a CBC which revealed an elevated white blood cell count, hemoglobin was elevated at 15.8, chemistry profile showed an elevated glucose at 157, lactic acid was elevated at 2.8, urinalysis revealed +4 bacteria and 10-25 WBCs. Patient did not fit sepsis criteria. Patient was admitted to [place] [address] for acute cystitis and diarrhea, the diarrhea was felt to be secondary to viral gastroenteritis. She was seen in consultation by infectious diseases, urinalysis resulted in Klebsiella pneumoniae which was ESBL. Patient had no untoward events during her hospitalization, on 12/13/18, patient was seen and examined and felt to be in stable condition for discharge home: On examination she appeared in good health and spirits. Vital signs as documented. Skin warm and dry and without overt rashes. Neck without JVD. Lungs clear. Heart exam notable for regular rhythm, normal sounds and absence of murmurs, rubs or gallops. Abdomen unremarkable and without evidence of organomegaly, masses, or abdominal aortic enlargement. Extremities nonedematous. Neuro: Cranial nerves II through XII are grossly intact, no focal motor deficits were noted, sensation to light touch and pinprick is intact. Psych: Patient is alert and oriented x3, she does not appear anxious or depressed Patient was discharged home in stable condition on 12/13/18. - Physical Exam Vital Signs Temp Pulse Resp BP Pulse Ox 98.0 F 75 16 186/87 H 98 12/13/18 02:55 12/13/18 12:09 12/13/18 12:09 12/13/18 12:09 12/13/18 12:09 Oxygen Delivery Method Room Air Weight: 69.6 kg Body Mass Index (BMI) 26.3 Finger Stick Blood Glucose 172 Intake and Output for Last 24 Hours 12/12/18 12/13/18 12/14/18 23:59 23:59 23:59 Intake Total 3418 / 3418 890 / 890 Output Total 3700 / 3700 Balance -282 / -282 890 / 890 Microbiology Past 72 Hours 12/10/18 10:25 Urine Culture - Final Urine, Clean Catch Klebsiella pneumoniae sp pneum 12/10/18 11:29 Blood Culture - Preliminary Blood Culture (Wb) - Left Forearm No growth in 48 hours. 12/10/18 11:55 Blood Culture - Preliminary Blood Culture (Wb) - Left Hand No growth in 48 hours. POC Glucose 12/13/18 11:48 POC Glucose 90 Discharge Activity: Return to Normal Activity Weight Bearing Status: Full weight bearing Home Medications: Medications to take at Discharge Pantoprazole Sodium [Protonix] 40 mg PO BID 01/22/17 Metformin HCl [Metformin HCl ER] 500 mg PO 0800 05/23/17 gabapentin 400 mg capsule 600 mg PO TID cap 10/11/17 sodium chloride 0.65 % nasal spray aerosol 2 spray INTRANASAL QHS ml 01/09/18 Oxycodone HCl/Acetaminophen [Percocet 5-325] 1 tab PO TID 05/07/18 ascorbic acid (vitamin C) 1,000 mg tablet 1 g PO DAILY tab 10/22/18 cholecalciferol (vitamin D3) 2,000 unit capsule 2,000 unit PO DAILY 10/22/18 duloxetine 30 mg capsule,delayed release 30 mg PO BID 10/22/18 magnesium oxide 400 mg (241.3 mg magnesium) tablet 400 mg PO DAILY tab 10/22/18 potassium chloride ER 10 mEq tablet,extended release 10 meq PO DAILY 10/22/18 vitamin E (dl, acetate) 1,000 unit capsule 1,000 unit PO DAILY 10/22/18 zolpidem 10 mg tablet 10 mg PO QHS tab 10/22/18 Carvedilol [Coreg] 3.125 mg PO BID 12/10/18 Metformin HCl [Glucophage] 500 mg PO BIDCM 12/10/18 Amlodipine/Benazepril [Lotrel 10-20 MG Capsule] 1 capsule PO DAILY 12/13/18 Primary Care Physician: Margarita Drake DO [Primary Care Provider] - Please follow up with your Primary Care Physician in: next visit Please Follow Up With: Margarita Drake DO When: NEXT VISIT Disposition: Home Minutes spent on discharge:: 32 Patient Condition:: Stable Medical Necessity - Tobacco Use Smoking Status: Never smoker Meaningful Use Info Meaningful Use Diagnoses (Choose all that apply): None applicable Code Visit Inpatient E&M: 38624 Disch Hosp
--- NOTE | 2018-12-14 11:08 | CASEMGMT ---
RN NISHA DC PHONE CALL DC DATE: 12/13/18 DC Disposition: Home LACE/STRATA: 08/07 Intro role of CM to patient. No questions re: f/u- appt is made with Dr. Drake per pt. Understands instructions. Pt states her care was great and no care improvement suggestions given. Nasreen CASILLASN RN ACM
== END 2018-12-13 12:21 | disposition home or self-care (01) | DRG 690 ==
LOC: ED 09:45 → MS3 12:41
PROVIDERS: Admitting Provider Internal Medicine; Emergency Provider Emergency Medicine; Family Provider Internal Medicine; PCP Internal Medicine; Visit Provider Internal Medicine
DX: N30.00 Acute cystitis without hematuria (principal); B96.1 Klebsiella pneumoniae [K. pneumoniae] as the cause of diseases classified elsewhere; Z16.12 Extended spectrum beta lactamase (ESBL) resistance; A08.4 Viral intestinal infection, unspecified; I10 Essential (primary) hypertension; E11.9 Type 2 diabetes mellitus without complications; K21.9 Gastro-esophageal reflux disease without esophagitis; M15.9 Polyosteoarthritis, unspecified; I35.1 Nonrheumatic aortic (valve) insufficiency; Z86.711 Personal history of pulmonary embolism; M79.7 Fibromyalgia; Z79.84 Long term (current) use of oral hypoglycemic drugs
CPT/HCPCS: 36415; 74177; 80048; 80053; 81001; 82962; 83605; 85025; 87040; 87077; 87086; 87088; 87186; 99284; J2185; J7030; Q9967; A4216; J2405

== ENCOUNTER → 2018-12-19 14:06 | Outpatient (CLI) | payer MEDICARE, OTHER, SELFPAY ==
[2018-12-13 12:03] VITALS: BMI 27.4
[2018-12-19 15:55] LABS: Amphetamine Urine VISTA NEGATIVE (<1000 ng/mL); Barbiturate Urine VISTA NEGATIVE (< 200 ng/mL); Benzodiazepine Urine VISTA NEGATIVE (< 200 ng/mL); Cocaine Urine VISTA NEGATIVE (< 300 ng/mL); Ecstacy Urine VISTA NEGATIVE (< 500 ng/mL); Methadone Urine VISTA NEGATIVE (< 300 ng/mL); PCP Urine VISTA NEGATIVE (< 25 ng/mL); THC Urine VISTA NEGATIVE (< 50 ng/mL); Vista UDS pH Range 6
== END ==
PROVIDERS: Family Provider Internal Medicine; PCP Internal Medicine; Referring Provider Anesthesiology Pain Medicine; Visit Provider Anesthesiology Pain Medicine
DX: F11.20 Opioid dependence, uncomplicated (principal)
CPT/HCPCS: 80307

== ENCOUNTER → 2018-12-20 10:27 | Outpatient (CLI) | payer MEDICARE, OTHER, SELFPAY ==
[2018-12-13 12:03] VITALS: BMI 27.4
[2018-12-20 11:02] LABS: Amphetamine Urine VISTA NEGATIVE (<1000 ng/mL); Barbiturate Urine VISTA NEGATIVE (< 200 ng/mL); Benzodiazepine Urine VISTA NEGATIVE (< 200 ng/mL); Cocaine Urine VISTA NEGATIVE (< 300 ng/mL); Ecstacy Urine VISTA NEGATIVE (< 500 ng/mL); Methadone Urine VISTA NEGATIVE (< 300 ng/mL); PCP Urine VISTA NEGATIVE (< 25 ng/mL); THC Urine VISTA NEGATIVE (< 50 ng/mL); Vista UDS pH Range 7
== END ==
PROVIDERS: Family Provider Internal Medicine; PCP Internal Medicine; Referring Provider Anesthesiology Pain Medicine; Visit Provider Anesthesiology Pain Medicine
DX: F11.20 Opioid dependence, uncomplicated (principal)
CPT/HCPCS: 80307

== ENCOUNTER → 2019-01-16 14:56 | Outpatient (CLI) | payer MEDICARE, OTHER, SELFPAY ==
[2018-12-27 13:39] VITALS: BMI 27.4
--- NOTE | 2019-01-16 14:59 | CT_ITS ---
STUDY: CT LUMBAR SPINE WITHOUT CONTRAST REASON FOR EXAM: Female, 73 years old. Lower back pain. History of multiple surgeries. RADIATION DOSAGE (If Supplied By Facility): CTDIvol = ( 12.41 ) mGy, DLP = ( 500.43 ) mGycm TECHNIQUE: The patient was scanned in a multi detector CT scanner. High resolution transaxial imaging was performed. Images were obtained from T9 to the sacrum. Sagittal and coronal images were reconstructed. Individualized dose optimization techniques were used for this CT. COMPARISON: CT lumbar spine, February 08, 2018. FINDINGS: Normal lumbar lordosis. There is dextroscoliosis with the convexity L1. There is evidence of posterior fusion of L1-L5. There is only 1 pedicle screw, on the right, at L3. This appears to be fractured in [address] The hardware appears otherwise intact. There is endplate spondylosis and disc space narrowing at T9-10, T10-11 and T11-12. There is no evidence of spinal stenosis or neural foraminal narrowing. T12-L1 there is exuberant endplate spondylosis. There is a questionable fracture through the left lateral L1 osteophyte. The vertebral body appears intact. There is loss of disc height with vacuum disc phenomena. There is mild endplate spondylosis. Normal spinal canal and intervertebral neural foramina. L1-2: There is marked loss of disc height with slight retrolisthesis of L1 on L2. There is endplate spondylosis. Cortical activity about the facet joints with evidence of laminectomy. Normal central canal and bilateral lateral recesses. There is narrowing of the bilateral bilateral intervertebral neural foramina with probable impingement on the exiting nerve roots. L2-3: Normal endplates. Normal disc height with slight bulging annulus. There is laminectomy defect with marked activity about the facet joints.. Normal central canal and bilateral lateral recesses is narrowing of the bilateral intervertebral neural foramina with probable impingement on the exiting nerve roots.. L3-4: There is endplate spondylosis with loss of disc height. There is marked productivity about the facet joints with laminectomy. Normal central canal and bilateral lateral recesses. Normal bilateral intervertebral neural foramina. L4-5: There is anterolisthesis of L4 and L5. There is marked loss of disc height with endplate spondylosis. There is evidence of laminectomy. There is marked bony productivity about the facet joints. Normal central canal and bilateral lateral recesses. Normal bilateral intervertebral neural foramina. L5-S1: There is loss of disc height with endplate spondylosis. There is diffuse facet joint degenerative change with evidence of laminectomy. Normal central canal and bilateral lateral recesses. Normal bilateral intervertebral neural foramina. There is atherosclerotic changes of the abdominal aorta without aneurysm. There is a right artificial hip. CT/Spine Lumbar without Contrast IMPRESSION: No interval change when compared to February 08, 2018. Electronically Signed: Stephen Walton DO at 16:09 EDT Tel [phone], Service support ,
== END ==
PROVIDERS: Family Provider Internal Medicine; PCP Internal Medicine; Referring Provider Psychiatry & Neurology Neurology; Visit Provider Psychiatry & Neurology Neurology
DX: M48.062 Spinal stenosis, lumbar region with neurogenic claudication (principal)
CPT/HCPCS: 72131

== ENCOUNTER → 2019-02-25 07:23 | Outpatient (CLI) | payer MEDICARE, OTHER, SELFPAY ==
[2018-12-27 13:39] VITALS: BMI 27.4
--- NOTE | 2019-02-25 07:43 | ART_ITS ---
Reason For Study: Atherosclerosis Procedure A bilateral lower extremity continuous wave Doppler with analog waveform analysis,segmental pressures,and ankle brachial indexes without exercise. Left Segmental Pressures Left brachial= 154mmHg. Left posterior tibial artery = 174mmHg. Left dorsalis pedis artery = 174mmHg. The left dorsalis pedis waveforms are triphasic. The left posterior tibial artery waveforms are triphasic. Right Segmental Pressures Right brachial= 148mmHg. Right posterior tibial artery = 189mmHg. Right dorsalis pedis artery = 183mmHg. The right dorsalis pedis waveforms are triphasic. The right posterior tibial artery waveforms are triphasic. Indices The right ankle brachial index by the dorsalis pedis is 1.19. The right ankle brachial index by the posterior tibial artery is 1.23. The left ankle brachial index by the dorsalis pedis is 1.13. The left ankle brachial index by the posterior tibial artery is 1.13. Interpretation Summary Triphasic Doppler waveforms are noted at ankle level bilaterally. Pulse-volume recording waveform amplitudes are satisfactory at all levels bilaterally, including low-thigh, calf, ankle, and digital levels. Resting ankle-brachial indices are normal bilaterally. There is no evidence of significant arterial occlusive disease in the lower extremities bilaterally. Ordering Physician: Darien Lara Referring Physician: Margarita Drake M.D. Performed By: Belgica Parker RVT
[2019-02-25 08:10] LABS: Erythrocyte Sedimentation Rate 7 mm/hr (0-30)
[2019-02-25 08:22] LABS: Hemoglobin A1c 6.9 % (4.2-6.3)
[2019-02-25 08:29] LABS: Rheumatoid Factor < 10.0 IU/mL (<15); Thyroid Stim Hormone (TSH) 2.66 uIU/mL (0.358-3.74)
[2019-02-25 09:35] LABS: HIV - WCH Non-Reactive (Nonreactive); Vitamin B12 1442 pg/mL (211-911)
[2019-02-26 12:06] LABS: RNP Ab <0.2 AI (0.0-0.9); Smith Ab <0.2 AI (0.0-0.9)
[2019-02-27 10:34] LABS: ANTINUCLEAR ANTIBODIES DIRECT Negative (Negative)
[2019-02-28 08:08] LABS: HCV Quant. RNA PCR HCV Not Detected IU/mL (.); PROEL- A/G Ratio 1.4 (0.7-1.7); PROEL- Albumin 3.8 g/dL (2.9-4.4); PROEL- Alpha-1 Globulin 0.2 g/dL (0.0-0.4); PROEL- Alpha-2 Globulin 0.7 g/dL (0.4-1.0); PROEL- Beta Globulin 1.1 g/dL (0.7-1.3); PROEL- Gamma Globulin 0.7 g/dL (0.4-1.8); PROEL- Globulin, Total 2.7 g/dL (2.2-3.9); PROEL- TOTAL PROTEIN 6.5 g/dL (6.0-8.5)
[2019-03-01 12:02] LABS: Creatinine, Urine 1.83 g/L (0.30-3.00)
== END ==
PROVIDERS: Family Provider Internal Medicine; PCP Internal Medicine; Referring Provider Psychiatry & Neurology Neurology; Visit Provider Psychiatry & Neurology Neurology
DX: I70.213 Atherosclerosis of native arteries of extremities with intermittent claudication, bilateral legs (principal); G62.9 Polyneuropathy, unspecified; R53.83 Other fatigue; R73.9 Hyperglycemia, unspecified
CPT/HCPCS: 36415; 82175; 82570; 82607; 82746; 83036; 83655; 83825; 84165; 84443; 85652; 86038; 86235; 86431; 86703; 86803; 87522; 93923

== ENCOUNTER → 2019-03-08 20:02 | Outpatient (CLI) | payer MEDICARE, OTHER, SELFPAY ==
[2018-12-27 13:39] VITALS: BMI 27.4
== END ==
PROVIDERS: Family Provider Internal Medicine; PCP Internal Medicine; Referring Provider Nurse Practitioner Acute Care; Visit Provider Nurse Practitioner Acute Care
DX: G47.33 Obstructive sleep apnea (adult) (pediatric) (principal)
CPT/HCPCS: 95811

== ENCOUNTER → 2019-03-19 10:32 | Outpatient (CLI) | payer MEDICARE, OTHER, SELFPAY ==
[2018-12-27 13:39] VITALS: BMI 27.4
[2019-03-19 12:26] LABS: Absolute Lymphocyte Count 1.31 X10^3/uL (0.83-4.51); Absolute Neutrophil Count 6.4 X10^3/uL (2.0-7.7); Basophil# 0.02 X10^3/uL; Basophil% 0.2 % (0-1); Eosinophil# 0.01 X10^3/uL; Eosinophils% 0.1 % (0-5); Hematocrit 43.1 % (37-47); Hemoglobin 13.8 g/dL (12.0-15.0); Lymphocyte # 1.31 X10^3/ul (4.0); Lymphocyte % 15.8 % (19-41); Mean Corpuscular Hgb 31.9 pg (27.0-32.0); Mean Corpuscular Volume 99.5 fL (81-99); Mean Platelet Vol. 9.9 fl (6.2-12.0); Monocyte# 0.49 X10^3/uL; Monocyte% 5.9 % (0-10); NRBC Flagged by Analyzer 0 % (0-5); Neutrophil % 77.5 % (47-70); Platelet Count 294 K/mm3 (150-450); RBC Distribution Width CV 15.2 % (11.6-14.6); RBC Distribution Width SD 55.4 fl (35.1-43.9); Red Blood Count 4.33 M/mm3 (4.2-5.4); White Blood Count 8.3 K/mm3 (4.4-11.0)
[2019-03-19 13:01] LABS: ALB/GLOB Ratio 1.5 RATIO (0.9-2.4); AST(SGOT) 11 U/L (15-37); Alanine Aminotransfer ALT/SGPT 22 U/L (13-56); Albumin, Serum 4.3 g/dL (3.2-5.0); Alkaline Phosphatase 66 U/L (45-117); Anion Gap 5 (5-15); BUN 16 mg/dL (7-18); BUN/Creat Ratio 18.1 RATIO (10-20); Calcium,Total 8.6 mg/dL (8.5-10.1); Chloride 103 mmol/L (98-107); Creatinine, Serum 0.88 mg/dL (0.55-1.02); EST Glomerular Filtration Rate 66 mL/min (>60); Est Glom Filt Rate - Afr Amer 80 mL/min (>60); Globulin 2.8 g/dL (2.2-4.2); Glucose 156 mg/dL (74-106); Potassium 3.8 mmol/L (3.5-5.1); Protein, Total 7.1 g/dL (6.4-8.2); Sodium Level 138 mmol/L (136-145)
== END ==
PROVIDERS: Family Provider Internal Medicine; PCP Internal Medicine; Referring Provider Internal Medicine Rheumatology; Visit Provider Internal Medicine Rheumatology
DX: M06.4 Inflammatory polyarthropathy (principal); Z79.899 Other long term (current) drug therapy; M79.7 Fibromyalgia; M17.0 Bilateral primary osteoarthritis of knee; M16.0 Bilateral primary osteoarthritis of hip; K21.9 Gastro-esophageal reflux disease without esophagitis; M21.40 Flat foot [pes planus] (acquired), unspecified foot; I10 Essential (primary) hypertension; E11.9 Type 2 diabetes mellitus without complications; G25.81 Restless legs syndrome; Z85.43 Personal history of malignant neoplasm of ovary
CPT/HCPCS: 36415; 80053; 85025

== ENCOUNTER 2019-03-24 09:15 | Emergency (ER) | payer MEDICARE, OTHER, SELFPAY ==
[2018-12-27 13:39] VITALS: BMI 27.4
[2019-03-24 09:16] VITALS: BP 119/94; PULSE 105; RESP 18; TEMP 36.1; O2SAT 96; BMI 25.7
--- NOTE | 2019-03-24 09:33 | CT_ITS ---
STUDY: CT ABDOMEN AND PELVIS WITH CONTRAST REASON FOR EXAM: Female, 73 years old. Left lower quadrant pain RADIATION DOSAGE (If Supplied By Facility): CTDIvol = ( 16.09 ) mGy, DLP = ( 945.43 ) mGycm TECHNIQUE: Transaxial images were obtained from the dome of the diaphragm to the symphysis pubis without oral contrast. 100 IV Isovue 300 was administered. Sagittal and coronal images were reconstructed. Individualized dose optimization techniques were used for this CT. COMPARISON: 12/10/2018 FINDINGS: Similar mild fibrotic scarring of the left lower lobe. The visualized portions of the heart are within normal limits. No hepatic masses. The gallbladder is surgically absent. Interval increased intrahepatic and extrahepatic bile duct dilation of the left more than right intrahepatic system. The CBD measures 12 mm. Normal spleen. Normal pancreas. Normal bilateral adrenal glands. Normal right kidney. 1.2 cm simple cyst of the left kidney is stable. Nonobstructing calculus in the inferior right kidney measuring 1-2 mm is stable. No ureteral calculi. There is a small hiatal hernia. Normal small intestine. There are multiple colonic diverticula consistent with diverticulosis. There is non-visualization of the appendix. There is diffuse atherosclerotic calcification of the abdominal aorta, without a demonstrated aneurysm. Normal inferior vena cava. Normal retroperitoneum. Normal urinary bladder. There is absence of the uterus consistent with a prior hysterectomy. Inferior positioning of the pelvic floor suggests pelvic floor instability. Posterior fusion with hardware of the lumbar spine again identified. There are degenerative changes of the left hip. Bone graft harvest sites in the bilateral kerry again noted. Right hip replacement noted, stable. CT/Abdomen/Pelvis W IV Cont ONLY IMPRESSION: 1. Diverticulosis without evidence of diverticulitis. 2. Interval development of intrahepatic and extrahepatic bile duct dilation. This can be related to prior cholecystectomy, however, given interval change, suggest correlation with laboratory values (bilirubin). 3. Additional stable chronic changes, as above. Electronically Signed: Felix Portillo MD at 10:40 EDT , Service support ,
[2019-03-24] MEDS: Ondansetron 4 MG/2 ML Vial IV (09:38)
[2019-03-24] MEDS: Morphine 4 MG/ML Syringe IV (09:38)
[2019-03-24] MEDS: 0.9% Normal Saline 1,000 ML 1000 ML IV (09:38)
[2019-03-24 09:44] LABS: Mucous, Urine 0 SEEN /hpf (<or=2+); Red Blood Cells-Urine 0 SEEN /hpf (0-5); Squamous Epithelial Cells - UA 0 SEEN /hpf (5-10)
--- NOTE | 2019-03-24 09:52 | ED.DCSUM_ITS ---
- ER Visit Summary Date of Service: 03/24/19 Chief Complaint: Abdominal pain History of Present Illness: The patient is a [address] Drake. She reports that she has lower abdominal pain that began 2 days ago. States it is a constant aching pain that is 2 out of 10 currently and 5 out of 10 at worst. It is increased with pushing on it or movement. Is relieved by remaining still. She reports that she has been nauseated and vomited twice. No blood in her emesis. She had no diarrhea. Her last bowel movement was today. She has had no melena or hematochezia. She does report that she had frequent urination for the past 2 days. She denies any dysuria. She has had subjective fever and chi lls. Physical Examination: Vitals: Stable. Afebrile. General: Well-nourished and well-developed. Head: Normocephalic atraumatic. Neck: Supple, no lymphadenopathy. No JVD. Nontender. Cardiovascular: Regular rate and rhythm. No murmurs. Respiratory: No respiratory distress. Clear to auscultation bilaterally. Abdominal: Soft, moderate left lower quadrant and suprapubic tenderness to palpation, nondistended, normal bowel sounds. No guarding, rebound, or peritoneal signs. Back: Nontender. Extremities: Nontender, no edema. Skin: Normal color, no rash. Neurologic: Alert and oriented ?3. Cranial nerves II through XII are intact. Normal strength and sensation. Psych: Normal affect. Test Results: CBC shows a hemoglobin of 15.2, segmented neutrophils 74, and lymphocytes of 17. Chem-7 shows a glucose of 169. UA shows greater than 100 whites with 3+ bacteria. Clinical Impression(s) from Imaging Studies Abdomen/Pelvis CT 03/24/19 09:33 IMPRESSION: 1. Diverticulosis without evidence of diverticulitis. 2. Interval development of intrahepatic and extrahepatic bile duct dilation. This can be related to prior cholecystectomy, however, given interval change, suggest correlation with laboratory values (bilirubin). 3. Additional stable chronic changes, as above. Electronically Signed: Felix Portillo MD at 10:40 EDT , Service support , Emergency Department Course and Treatment: Patient had an IV placed. She was given a liter of normal saline. She was given morphine and Zofran IV. She is resting comfortably. Patient's urine was sent for culture and she was given a dose of Rocephin IV. Treatment Plan: Patient will be discharged on Zofran and Keflex. Instructed to follow-up with her primary care physician in 2 days to get the results of her urine culture. Return to the emergency department for any worsening symptoms. Disposition: To home in improved and stable condition. Impression: 1. UTI. This note was generated with [employer] dictation software. It may contain incorrect words, spelling, and punctuation that were not noted in review of the chart prior to signing ED Disposition - Plan for ED Patient: Instructions: Urinary Tract Infections in Women Prescriptions: Cephalexin [Keflex] 500 mg PO Q12 #14 capsule Ondansetron [Zofran Odt] 4 mg PO Q8H PRN PRN #10 tablet PRN Reason: Nausea Referrals: Margarita Drake DO [Primary Care Provider] - 2 Days
[2019-03-24 10:03] LABS: Absolute Lymphocyte Count 1.72 X10^3/uL (0.83-4.51); Absolute Neutrophil Count 7.6 X10^3/uL (2.0-7.7); Basophil# 0.04 X10^3/uL; Basophil% 0.4 % (0-1); Hematocrit 46.1 % (37-47); Hemoglobin 15.2 g/dL (12.0-15.0); Lymphocyte # 1.72 X10^3/ul (4.0); Lymphocyte % 16.7 % (19-41); Mean Corpuscular Hgb 32.8 pg (27.0-32.0); Mean Corpuscular Volume 99.6 fL (81-99); Mean Platelet Vol. 9.9 fl (6.2-12.0); Monocyte# 0.78 X10^3/uL; Monocyte% 7.6 % (0-10); NRBC Flagged by Analyzer 0 % (0-5); Neutrophil # 7.61 X10^3/uL (2.7-7.7); Neutrophil % 73.9 % (47-70); Platelet Count 273 K/mm3 (150-450); RBC Distribution Width CV 15.6 % (11.6-14.6); RBC Distribution Width SD 55.8 fl (35.1-43.9); Red Blood Count 4.63 M/mm3 (4.2-5.4); White Blood Count 10.3 K/mm3 (4.4-11.0)
[2019-03-24 10:09] LABS: Bacteria 3+ /hpf (None Seen); White Blood Cells >100 SEEN /hpf (0-5)
[2019-03-24 10:14] LABS: Anion Gap 3 (5-15); BUN 11 mg/dL (7-18); BUN/Creat Ratio 14.5 RATIO (10-20); Calcium,Total 8.8 mg/dL (8.5-10.1); Chloride 103 mmol/L (98-107); Creatinine, Serum 0.76 mg/dL (0.55-1.02); EST Glomerular Filtration Rate 79 mL/min (>60); Est Glom Filt Rate - Afr Amer 95 mL/min (>60); Estimated Creatinine Clearance 43.74 ml/min; Glucose 169 mg/dL (74-106); Potassium 3.5 mmol/L (3.5-5.1); Sodium Level 137 mmol/L (136-145)
[2019-03-24 10:24] LABS: Color, Urine Yellow (Yellow); Glucose, Dipstick Normal (Normal); Ketone-Dipstick Negative (Negative); Leukocyte Esterase-Dipstick 500 /ul (Negative); Nitrite-Dipstick Negative (Negative); Occult Blood-Urine 25 /ul (Negative); Protein-Dipstick 30 mg/dl (Negative); Specific Gravity, Urine 1.005 (1.002-1.030); Urine Bilirubin Dipstick Negative (Negative); Urine Clarity Cloudy (Clear); Urine Urobilinogen 1 mg/dl (Normal)
[2019-03-24] MEDS: Ceftriaxone 1 GM/50 ML BAG IV (11:10)
[2019-03-24 11:48] VITALS: BP 121/7; PULSE 81; RESP 16; O2SAT 97
== END 2019-03-24 11:54 | disposition home or self-care (01) ==
LOC: ED 09:59
PROVIDERS: Emergency Provider Emergency Medicine; Family Provider Internal Medicine; PCP Internal Medicine
DX: N39.0 Urinary tract infection, site not specified (principal); I10 Essential (primary) hypertension; E11.9 Type 2 diabetes mellitus without complications; Z79.84 Long term (current) use of oral hypoglycemic drugs; Z79.899 Other long term (current) drug therapy
CPT/HCPCS: 74177; 80048; 81001; 85025; 87077; 87086; 87088; 87186; 96361; 96365; 96374; 96375; 99285; J7030; Q9967; J2405

== ENCOUNTER 2019-03-25 15:29 | Inpatient (IN) | payer MEDICARE, OTHER, SELFPAY ==
[2019-03-24 09:16] VITALS: BMI 25.7
[2019-03-25 15:30] VITALS: BP 151/86; PULSE 94; RESP 16; TEMP 36.3; O2SAT 98; BMI 25.7
--- NOTE | 2019-03-25 16:27 | ED.DCSUM_ITS ---
- ER Visit Summary Date of Service: 03/25/19 Chief Complaint: Nausea and vomiting History of Present Illness: The patient is a 73 F here for nausea vomiting. The patient was seen yesterday for suprapubic pain. She was found to have a UTI. Cultures are pending. She was treated with Keflex and Zofran. She had continued symptoms at home. She is now having nausea and vomiting. She cannot tolerate anything by mouth, and she cannot take her medications. Incidentally, her CT showed diverticulosis without diverticulitis. She also has extra and intra-hepatic bile duct dilation with a history of cholecystectomy. Patient is not having upper abdominal pain. She is having fevers today. Physical Examination: Afebrile and vital signs unremarkable. Heart rate 94. Patient appears uncomfortable but not toxic or in distress. Heart regular rate and rhythm. Lungs clear. Lower abdomen tender to palpation. No guarding or rebound. No distention. No masses. Skin normal in color without pallor, diaphoresis, or jaundice. Test Results: We will repeat laboratory studies, and add on hepatic testing and lipase. Will check lactate and cultures for possible sepsis. Emergency Department Course and Treatment: Patient treated with fluids, Zofran, morphine while awaiting results. Labs showed a glucose of 168. Lipase and liver panel normal. Lactate 3.6. Cultures pending. Patient was treated with fluids, Zofran, morphine for pain. She also received Rocephin. Hospitalist was contacted to admit for failed outpatient treatment of UTI with lactic acidosis. Treatment Plan: As above Disposition: Admission Impression: 1. UTI 2. Lactic acidosis This note was generated with [employer] dictation software. It may contain incorrect words, spelling, and punctuation that were not noted in review of the chart prior to signing ED Disposition - Plan for ED Patient:
[2019-03-25] MEDS: Ondansetron 4 MG/2 ML Vial IV ×2 (16:48→19:55)
[2019-03-25] MEDS: Morphine 4 MG/ML Syringe IV (16:48)
[2019-03-25] MEDS: 0.9% Normal Saline 1,000 ML 1000 ML IV (16:49)
[2019-03-25 16:50] VITALS: BP 151/84; TEMP 36.3
[2019-03-25 16:59] LABS: Absolute Neutrophil Count 5.4 X10^3/uL (2.0-7.7); Basophil# 0.03 X10^3/uL; Basophil% 0.4 % (0-1); Eosinophil# 0.06 X10^3/uL; Eosinophils% 0.8 % (0-5); Hematocrit 41.9 % (37-47); Hemoglobin 13.8 g/dL (12.0-15.0); Lymphocyte % 16.3 % (19-41); Mean Corp Hgb Conc 32.9 g/dL (32-36); Mean Corpuscular Hgb 32.7 pg (27.0-32.0); Mean Corpuscular Volume 99.3 fL (81-99); Mean Platelet Vol. 10.1 fl (6.2-12.0); Monocyte# 0.62 X10^3/uL; Monocyte% 8.4 % (0-10); NRBC Flagged by Analyzer 0 % (0-5); Neutrophil # 5.41 X10^3/uL (2.7-7.7); Neutrophil % 73.7 % (47-70); Platelet Count 245 K/mm3 (150-450); RBC Distribution Width CV 15.3 % (11.6-14.6); RBC Distribution Width SD 54.4 fl (35.1-43.9); Red Blood Count 4.22 M/mm3 (4.2-5.4); White Blood Count 7.4 K/mm3 (4.4-11.0)
[2019-03-25 17:06] LABS: Partial Thromboplast Time 26.9 Seconds (24.1-36.2); Prothrombin Time (Protime)PT. 12.8 SECONDS (11.7-14.9)
[2019-03-25 17:12] LABS: ALB/GLOB Ratio 1.2 RATIO (0.9-2.4); AST(SGOT) 14 U/L (15-37); Alanine Aminotransfer ALT/SGPT 19 U/L (13-56); Albumin, Serum 3.7 g/dL (3.2-5.0); Alkaline Phosphatase 59 U/L (45-117); Anion Gap 10 (5-15); BUN 8 mg/dL (7-18); BUN/Creat Ratio 10.2 RATIO (10-20); Calcium,Total 8.4 mg/dL (8.5-10.1); Chloride 103 mmol/L (98-107); Creatinine, Serum 0.78 mg/dL (0.55-1.02); EST Glomerular Filtration Rate 76 mL/min (>60); Est Glom Filt Rate - Afr Amer 92 mL/min (>60); Estimated Creatinine Clearance 43.74 ml/min; Globulin 3.1 g/dL (2.2-4.2); Glucose 168 mg/dL (74-106); Lipase 39 U/L (73-393); Potassium 3.9 mmol/L (3.5-5.1); Protein, Total 6.8 g/dL (6.4-8.2); Sodium Level 143 mmol/L (136-145)
[2019-03-25 17:28] LABS: Lactic Acid 3.6 mmol/L (0.4-2.0)
[2019-03-25 19:12] VITALS: BP 147/81; PULSE 79; RESP 16; O2SAT 97
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
--- NOTE | 2019-03-25 19:48 | ED.RN ---
CALLED PHARMACY REGARDING THE ROCEPHIN.
[2019-03-25] MEDS: Ceftriaxone 1 GM/50 ML BAG IV (19:54)
[2019-03-25] MEDS: 0.9% Normal Saline 1,000 ML 999 ML IV (19:54)
[2019-03-25 20:43] VITALS: BP 147/83; PULSE 91; RESP 16
[2019-03-25 20:53] LABS: Reflex Lactate? Y
[2019-03-25 20:58] VITALS: BP 136/73; PULSE 64; RESP 16; TEMP 37.1; O2SAT 95; BMI 25.8; BMI 26.6
[2019-03-25 21:00] VITALS: BP 125/63
[2019-03-25] MEDS: 0.9% Normal Saline 1,000 ML 100 ML IV (21:52)
[2019-03-25 21:56] LABS: Lactic Acid 1.1 mmol/L (0.4-2.0)
[2019-03-25] MEDS: Zolpidem Tartrate 5 MG Tablet PO (22:28)
[2019-03-25] MEDS: oxyCODONE 5 MG Tablet PO (22:58)
[2019-03-25] MEDS: Gabapentin 800 MG Tablet PO (23:13)
[2019-03-25 23:16] LABS: Bedside Glucose 118 mg/dL (70-110)
[2019-03-26 03:10] VITALS: BP 163/71; PULSE 60; RESP 16; TEMP 36.9; O2SAT 96
[2019-03-26] MEDS: oxyCODONE 5 MG Tablet PO ×3 (06:07→21:42)
[2019-03-26 07:05] LABS: Bedside Glucose 134 mg/dL (70-110)
[2019-03-26 07:07] LABS: Absolute Lymphocyte Count 1.35 X10^3/uL (0.83-4.51); Absolute Neutrophil Count 3.4 X10^3/uL (2.0-7.7); Basophil# 0.05 X10^3/uL; Basophil% 0.9 % (0-1); Eosinophils% 1.8 % (0-5); Hematocrit 35.3 % (37-47); Hemoglobin 11.6 g/dL (12.0-15.0); Lymphocyte # 1.35 X10^3/ul (4.0); Mean Corp Hgb Conc 32.9 g/dL (32-36); Mean Corpuscular Hgb 32.5 pg (27.0-32.0); Mean Corpuscular Volume 98.9 fL (81-99); Mean Platelet Vol. 9.7 fl (6.2-12.0); Monocyte# 0.46 X10^3/uL; Monocyte% 8.5 % (0-10); NRBC Flagged by Analyzer 0 % (0-5); Neutrophil # 3.43 X10^3/uL (2.7-7.7); Neutrophil % 63.4 % (47-70); Platelet Count 195 K/mm3 (150-450); RBC Distribution Width CV 15.6 % (11.6-14.6); RBC Distribution Width SD 55.4 fl (35.1-43.9); Red Blood Count 3.57 M/mm3 (4.2-5.4); White Blood Count 5.4 K/mm3 (4.4-11.0)
[2019-03-26 07:29] LABS: Anion Gap 3 (5-15); BUN 7 mg/dL (7-18); BUN/Creat Ratio 11.1 RATIO (10-20); Calcium,Total 7.5 mg/dL (8.5-10.1); Chloride 108 mmol/L (98-107); Creatinine, Serum 0.63 mg/dL (0.55-1.02); EST Glomerular Filtration Rate 97 mL/min (>60); Est Glom Filt Rate - Afr Amer 118 mL/min (>60); Estimated Creatinine Clearance 41.97 ml/min; Glucose 135 mg/dL (74-106); Potassium 3.5 mmol/L (3.5-5.1); Sodium Level 140 mmol/L (136-145)
[2019-03-26 07:53] VITALS: BP 138/70; PULSE 68; RESP 18; TEMP 36.7; O2SAT 96
[2019-03-26] MEDS: Gabapentin 800 MG Tablet PO ×3 (07:55→16:43)
[2019-03-26 09:20] VITALS: BP 122/63; PULSE 63; RESP 18; TEMP 37.3; O2SAT 93
[2019-03-26 09:30] VITALS: O2SAT 93
[2019-03-26] MEDS: Enoxaparin 40 MG/0.4 ML Syringe SC (11:14)
[2019-03-26] MEDS: Carvedilol 3.125 MG TABLET PO ×2 (11:14→21:37)
[2019-03-26] MEDS: Pantoprazole Sodium 40 MG Tablet PO ×2 (11:16→21:37)
[2019-03-26] MEDS: amLODIPine 10 MG Tablet PO (11:16)
[2019-03-26] MEDS: Lisinopril 20 MG Tablet PO (11:18)
[2019-03-26 11:25] LABS: Bedside Glucose 147 mg/dL (70-110)
--- NOTE | 2019-03-26 12:32 | CASEMGMT ---
RN CM Assessment Presentation: UTI, DM2 Intro role of CM and purpose of RN CM assessment to patient in room. Pt is awake, alert and able to participate in assessment. Demographics, PCP and Pharmacy verified. 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 Plans to return to work when cleared medically. PCP: Dr. Margariat Drake Specialists: Dr. Betts Preferred Pharmacy: [facility] ` Insurance: [facility] Prescription Benefit: yes LNOK: Significant other, Rj Katz Living Arrangements: Mobile Home, 2 steps into home. Pt states she is independent, works, drives and does not need assist with any ADL. Transportation: drives DME: shower chair, raised toilet seat, cane, grab bars and walker. Pt states she does not use any DME HHC: none Patient DC goals: Home DC PLAN: Home Nasreen RODRIGUEZ RN ACM
[2019-03-26 13:40] VITALS: BP 142/69; PULSE 61; RESP 16; TEMP 36.9; O2SAT 95
--- NOTE | 2019-03-26 13:58 | PCM.PN.HOSP ---
Subjective: Patient seen and examined. Objective: Physical Exam General: Alert, Oriented x3, Cooperative, No apparent distress HEENT: Atraumatic, PERRLA, EOMI, Normocephalic Oral: Dry Mucosa Neck: Supple, No JVD Lungs: Clear to auscultation, Normal air movement, No rhonchi, No wheeze, No rales, Diminished Cardiovascular: Regular rate, Regular Rhythm, Normal S1, Normal S2, No murmurs Abdomen: Soft, Non Tender, Non-Distended, No Hepato-splenomegaly Extremities: No edema, Capillary Refill Less than 3 Seconds Skin: No rashes, No breakdown Neurological: Neuro grossly intact, Sensory exam intact to light touch and pain Psych/Mental Status: Normal Affect, Appropriate Vitals/I&O's: Vital Signs Temp Pulse Resp BP Pulse Ox 99.1 F 63 18 122/63 H 93 03/26/19 09:20 03/26/19 09:20 03/26/19 09:20 03/26/19 09:20 03/26/19 09:30 Oxygen Delivery Method Room Air Weight: 70.3 kg Body Mass Index (BMI) 26.6 Finger Stick Blood Glucose 172 Intake and Output for Last 24 Hours 03/24/19 03/25/19 03/26/19 23:59 23:59 23:59 Intake Total 3248 / 3248 Balance 3248 / 3248 Laboratory Results 03/25/19 16:45: WBC 7.4, RBC 4.22, Hgb 13.8, Hct 41.9, MCV 99.3 H, MCH 32.7 H, MCHC 32.9, RDW Std Deviation 54.4 H, RDW Coeff of Jaleel 15.3 H, Plt Count 245, MPV 10.1, Immature Gran % (Auto) 0.400, Neut % (Auto) 73.7 H, Lymph % (Auto) 16.3 L, [place] % (Auto) 8.4, Eos % (Auto) 0.8, Baso % (Auto) 0.4, Absolute Neuts (auto) 5.4, Absolute Lymphs (auto) 1.20, Absolute Nucleated RBC 0.00, Nucleated RBC % 0 03/25/19 16:45: PT 12.8, INR 1.0, APTT 26.9 03/25/19 16:45: Sodium 143, Potassium 3.9, Chloride 103, Carbon Dioxide 30.0, Anion Gap 10, BUN 8, Creatinine 0.78, Estim Creat Clear Calc 43.74, Est GFR (MDRD) Af Amer 92, Est GFR (MDRD) Non-Af 76, BUN/Creatinine Ratio 10.2, Glucose 168 H, Calcium 8.4 L, Total Bilirubin 0.40, AST 14 L, ALT 19, Alkaline Phosphatase 59, Total Protein 6.8, Albumin 3.7, Globulin 3.1, Albumin/Globulin Ratio 1.2, Lipase 39 L 03/25/19 16:45: Lactic Acid 3.6 H 03/25/19 21:15: Lactic Acid 1.1 03/25/19 22:27: POC Glucose 118 H 03/26/19 06:40: WBC 5.4, RBC 3.57 L, Hgb 11.6 L, Hct 35.3 L, MCV 98.9, MCH 32.5 H, MCHC 32.9, RDW Std Deviation 55.4 H, RDW Coeff of Jaleel 15.6 H, Plt Count 195, MPV 9.7, Immature Gran % (Auto) 0.400, Neut % (Auto) 63.4, Lymph % (Auto) 25.0, [place] % (Auto) 8.5, Eos % (Auto) 1.8, Baso % (Auto) 0.9, Absolute Neuts (auto) 3.4, Absolute Lymphs (auto) 1.35, Absolute Nucleated RBC 0.00, Nucleated RBC % 0 03/26/19 06:40: Sodium 140, Potassium 3.5, Chloride 108 H, Carbon Dioxide 29.0, Anion Gap 3 L, BUN 7, Creatinine 0.63, Estim Creat Clear Calc 41.97, Est GFR (MDRD) Af Amer 118, Est GFR (MDRD) Non-Af 97, BUN/Creatinine Ratio 11.1, Glucose 135 H, Calcium 7.5 L 03/26/19 06:40: Albumin 3.0 L 03/26/19 06:56: POC Glucose 134 H 03/26/19 11:23: POC Glucose 147 H Current Medications Amlodipine Besylate (Norvasc) 10 mg PO DAILY [facility] Last Admin: 03/26/19 11:16 Dose: 10 mg Documented by: Carvedilol (Coreg) 3.125 mg PO BID [facility] Last Admin: 03/26/19 11:14 Dose: 3.125 mg Documented by: Dextrose (D50w Syringe) 0 gm IV X1 PRN; Protocol PRN Reason: Hypoglycemia Enoxaparin Sodium (Lovenox) 40 mg SC DAILY@1000 [facility]UREEN Last Admin: 03/26/19 11:14 Dose: 40 mg Documented by: Gabapentin (Neurontin) 800 mg PO TIDCM [facility] Last Admin: 03/26/19 11:19 Dose: 800 mg Documented by: Glucagon () 1 mg IM .X1 PRN PRN Reason: Hypoglycemia Sodium Chloride () 1,000 mls @ 100 mls/hr IV .Q10H [facility] Last Admin: 03/25/19 21:52 Dose: 100 mls/hr Documented by: Piperacillin Sod/Tazobactam (Sod 3.375 gm/ Sodium Chloride) 50 mls @ 12.5 mls/hr IV Q8 [facility] Last Admin: 03/26/19 13:44 Dose: 12.5 mls/hr Documented by: Sodium Chloride () 250 mls @ 15 mls/hr IV .[id number] PRN PRN Reason: SALINE FLUSH Insulin Glargine (Lantus (Bk)) 5 units SC QHS [facility] Last Admin: 03/25/19 22:28 Dose: 5 units Documented by: Insulin Human Lispro (Humalog Kwikpen ([facility])) 0 unit SC ACHS [facility]; Protocol Last Admin: 03/26/19 11:25 Dose: Not Given Documented by: Lisinopril (Zestril) 20 mg PO DAILY [facility] Last Admin: 03/26/19 11:18 Dose: 20 mg Documented by: Nicotine Polacrilex ([place]ug[place] Nicotine ([facility])) 2 mg PO Q2H PRN PRN PRN Reason: Nicotine Craving Ondansetron HCl (Zofran) 4 mg IV Q8H PRN PRN PRN Reason: NAUSEA/VOMITING Oxycodone HCl (Oxyir) 5 mg PO TID [facility] Last Admin: 03/26/19 13:45 Dose: 5 mg Documented by: Pantoprazole Sodium (Protonix) 40 mg PO BID [facility] Last Admin: 03/26/19 11:16 Dose: 40 mg Documented by: Sodium Chloride () 10 - 40 ml IV UD PRN PRN Reason: SALINE FLUSH Zolpidem Tartrate (Ambien (Generic)) 5 mg PO QHS PRN PRN PRN Reason: SLEEP Last Admin: 03/25/19 22:28 Dose: 5 mg Documented by: Medical Necessity - Tobacco Use Smoking Status: Never smoker Assessment/Plan All Active Problems (Last Reviewed 12/27/18 @ 13:52 by Luly Noriega, ASSISTANT DESIGNER-C) UTI (urinary tract infection) (Acute) Shortness of breath (Acute) Bronchitis (Acute) Hx pulmonary embolism (Resolved) HCAP (healthcare-associated pneumonia) (Resolved) Cervical post-laminectomy syndrome (Resolved) Pulmonary embolism, bilateral (Resolved) Shingles (Resolved) 1. Acute Klebsiella UTI, s/p failed outpatient treatment, on IV Zosyn, blood cultures are pending. 2. Type 2 DM, BS are controlled, will continue to hold metformin, will continue on Lantus 5 units and ISS 3. CAD, on beta-blockers, not on aspirin. 4. Hypertension, controlled, on amlodipine, carvedilol, lisinopril, will continue to monitor. 5. Chronic pain syndrome, on gabapentin, oxycodone. 6. GERD, on PPI 7. DVT PPx- Lovenox SC 8. Disposition: Possible DC in am. Code Visit Inpatient E&M: 00358 Subs Hosp L2
[2019-03-26] MEDS: Insulin Lispro 100 UNIT/ML INSULN.PEN SC ×2 (16:47→21:38)
[2019-03-26 16:55] LABS: Bedside Glucose 189 mg/dL (70-110)
[2019-03-26] MEDS: 0.9% Normal Saline 1,000 ML 100 ML IV (19:44)
[2019-03-26 19:49] VITALS: BP 132/77; PULSE 62; RESP 16; TEMP 36.9; O2SAT 93
[2019-03-26] MEDS: 0.9% NaCl IVPB Med Flush (250 mL) 15 ML IV (21:37)
[2019-03-26 21:45] LABS: Bedside Glucose 153 mg/dL (70-110)
[2019-03-26] MEDS: Zolpidem Tartrate 5 MG Tablet PO (21:49)
[2019-03-27 02:30] VITALS: BP 155/75; PULSE 55; RESP 16; TEMP 36.7; O2SAT 94
[2019-03-27] MEDS: 0.9% Normal Saline 1,000 ML 100 ML IV (05:10)
[2019-03-27] MEDS: oxyCODONE 5 MG Tablet PO (05:10)
[2019-03-27] MEDS: Insulin Lispro 100 UNIT/ML INSULN.PEN SC (06:30)
[2019-03-27 06:45] LABS: Bedside Glucose 155 mg/dL (70-110)
[2019-03-27 08:05] VITALS: BP 135/71; PULSE 61; RESP 16; TEMP 36.7; O2SAT 95
[2019-03-27] MEDS: Gabapentin 800 MG Tablet PO (08:08)
[2019-03-27] MEDS: Pantoprazole Sodium 40 MG Tablet PO (08:08)
[2019-03-27] MEDS: Carvedilol 3.125 MG TABLET PO (08:08)
[2019-03-27] MEDS: amLODIPine 10 MG Tablet PO (08:08)
[2019-03-27] MEDS: Lisinopril 20 MG Tablet PO (08:12)
--- NOTE | 2019-03-27 10:02 | PCM.DC ---
- Discharge Diagnoses Reason(s) for Visit for Discharge Instructions: uti You will use the following diet at home:: Calorie/Carbohydrate Controlled (specify 1200, 1400, etc), Cardiac Your food should be the consistency of: Regular Your liquids should be the consistency of: Regular/Thin Discharge Activity: Return to Normal Activity Additional Instructions: Complete your antibiotics as prescribed. Continue to take the rest of your meds as prescribed. Follow-up with your primary care doctor within 1-2 weeks Allergies/Adverse Reactions: Allergies rosuvastatin calcium [From Crestor] Allergy (Verified 03/25/19 21:16) Itching simvastatin Allergy (Verified 03/25/19 21:16) Itching Medications to take at Discharge Pantoprazole Sodium [Protonix] 40 mg PO BID 01/22/17 Metformin HCl [Metformin HCl ER] 500 mg PO 0800 05/23/17 gabapentin 400 mg capsule 800 mg PO TID cap 10/11/17 sodium chloride 0.65 % nasal spray aerosol 2 spray INTRANASAL QHS ml 01/09/18 Oxycodone HCl/Acetaminophen [Percocet 5-325] 1 tab PO TID 05/07/18 ascorbic acid (vitamin C) 1,000 mg tablet 1 g PO DAILY tab 10/22/18 cholecalciferol (vitamin D3) 2,000 unit capsule 2,000 unit PO DAILY 10/22/18 magnesium oxide 400 mg (241.3 mg magnesium) tablet 400 mg PO DAILY tab 10/22/18 potassium chloride ER 10 mEq tablet,extended release 10 meq PO DAILY 10/22/18 vitamin E (dl, acetate) 1,000 unit capsule 1,000 unit PO DAILY 10/22/18 zolpidem 10 mg tablet 5 mg PO QHS tab 10/22/18 Carvedilol [Coreg] 3.125 mg PO BID 12/10/18 metFORMIN HCl [Glucophage] 500 mg PO BIDCM 12/10/18 Amlodipine/Benazepril [Lotrel 10-20 MG Capsule] 1 cap PO DAILY 12/13/18 Ondansetron [Zofran Odt] 4 mg PO Q8H PRN PRN #10 tab 03/24/19 Cefdinir 300 mg PO BID #8 cap 03/27/19 The following prescriptions were given: Cefdinir 300 mg PO BID #8 cap Transmission Status: Received by [id number] Primary Care Physician: Margarita Drake DO [Primary Care Provider] - Please follow up with your Primary Care Physician in: within 1-2 weeks Test Results: Test results from this visit will be discussed in further detail at your follow-up appointment, if applicable. Proposed Discharge Date: 03/27/19
--- NOTE | 2019-03-27 10:03 | PCM.DC.SUM ---
Discharge Date and Diagnosis Date of Admission: 03/25/19 Date of Discharge: 03/27/19 - Primary Discharge Diagnosis Acute Klebsiella UTI, s/p failed outpatient therapy Elevated lactic acidosis - Secondary Discharge Diagnosis Chronic Problems (Last Reviewed 12/27/18 @ 13:52 by Luly Noriega NP-C) Nocturnal hypoxemia (Chronic) Hyperlipidemia (Chronic) Elevated blood pressure reading without diagnosis of hypertension (Chronic) Other prison (current) drug therapy (Chronic) Nonrheumatic aortic (valve) insufficiency (Chronic) Nonrheumatic tricuspid (valve) insufficiency (Chronic) Other secondary pulmonary hypertension (Chronic) Nonischemic cardiomyopathy (Chronic) Fatigue (Chronic) Chronic Klebsiella Urine Colonization (Chronic) Takotsubo cardiomyopathy (Chronic) 2013 25%, 2017-60% GI (gastrointestinal bleed) (Chronic) CAD (coronary artery disease) (Chronic) Mild Lumbar spinal stenosis (Chronic) Chiari malformation (Chronic) Insomnia (Chronic) GERD (gastroesophageal reflux disease) (Chronic) Osteoarthritis of left knee (Chronic) Fibromyalgia (Chronic) Depression (Chronic) Anxiety (Chronic) Chronic pain syndrome (Chronic) Sinusitis, chronic (Chronic) Diabetes mellitus type 2, diet-controlled (Chronic) History of total right hip replacement (Chronic) Hypertension (Chronic) chairi malformations/p posterior decompr (Chronic) Hospital Course and Treatment None Operations: None Procedures: None Summary of Care Provided: 73y/o with multiple co-morbidities who was seen in the emergency department one day prior to her admission and discharged on Keflex for Acute Klebsiella UTI. She went home and took a couple doses of her Keflex and developed severe nausea and vomiting and was unable to keep anything down came back to the ED. In the emergency department, her lactic acidosis was 3.6. She was started on IV zosyn. Blood cultures are pending. Patient's previous urine culture resulted back and was pansensitive. She was discharged on cefdinir. She will follow-up with her PCP within 1-2 weeks. Subjective: On the day of discharge, patient felt well. Denies any fever or chills. Objective: Physical Exam General: Alert, Oriented x3, Cooperative, No apparent distress HEENT: Atraumatic, PERRLA, EOMI, Normocephalic Oral: Dry Mucosa Neck: Supple, No JVD Lungs: Clear to auscultation, Normal air movement, No rhonchi, No wheeze, No rales, Diminished Cardiovascular: Regular rate, Regular Rhythm, Normal S1, Normal S2, No murmurs Abdomen: Soft, Non Tender, Non-Distended, No Hepato-splenomegaly Extremities: No edema, Capillary Refill Less than 3 Seconds Skin: No rashes, No breakdown Neurological: Neuro grossly intact, Sensory exam intact to light touch and pain Psych/Mental Status: Normal Affect, Appropriate - Physical Exam Vital Signs Temp Pulse Resp BP Pulse Ox 98.0 F 61 16 135/71 H 95 03/27/19 08:05 03/27/19 08:05 03/27/19 08:05 03/27/19 08:05 03/27/19 08:05 Oxygen Delivery Method Room Air Weight: 70.3 kg Body Mass Index (BMI) 26.6 Finger Stick Blood Glucose 172 Intake and Output for Last 24 Hours 03/25/19 03/26/19 03/27/19 23:59 23:59 23:59 Intake Total 4846 / 4846 838 / 838 Output Total 400 / 400 Balance 4846 / 4846 438 / 438 Laboratory Tests Past 24 Hrs 03/26/19 06:40 Albumin 3.0 L POC Glucose 03/27/19 03/26/19 03/26/19 06:29 21:36 16:40 POC Glucose 155 H 153 H 189 H 03/26/19 11:23 POC Glucose 147 H Discharge Diet: Low fat/ Low Cholesterol, 2000 mg Sodium Diet, Carb Control Diet Discharge Activity: Return to Normal Activity Home Medications: Medications to take at Discharge Pantoprazole Sodium [Protonix] 40 mg PO BID 01/22/17 Metformin HCl [Metformin HCl ER] 500 mg PO 0800 05/23/17 gabapentin 400 mg capsule 800 mg PO TID cap 10/11/17 sodium chloride 0.65 % nasal spray aerosol 2 spray INTRANASAL QHS ml 01/09/18 Oxycodone HCl/Acetaminophen [Percocet 5-325] 1 tab PO TID 05/07/18 ascorbic acid (vitamin C) 1,000 mg tablet 1 g PO DAILY tab 10/22/18 cholecalciferol (vitamin D3) 2,000 unit capsule 2,000 unit PO DAILY 10/22/18 magnesium oxide 400 mg (241.3 mg magnesium) tablet 400 mg PO DAILY tab 10/22/18 potassium chloride ER 10 mEq tablet,extended release 10 meq PO DAILY 10/22/18 vitamin E (dl, acetate) 1,000 unit capsule 1,000 unit PO DAILY 10/22/18 zolpidem 10 mg tablet 5 mg PO QHS tab 10/22/18 Carvedilol [Coreg] 3.125 mg PO BID 12/10/18 metFORMIN HCl [Glucophage] 500 mg PO BIDCM 12/10/18 Amlodipine/Benazepril [Lotrel 10-20 MG Capsule] 1 cap PO DAILY 12/13/18 Ondansetron [Zofran Odt] 4 mg PO Q8H PRN PRN #10 tab 03/24/19 Cefdinir 300 mg PO BID #8 cap 03/27/19 Following Prescrptions Were Given to Patient: Cefdinir 300 mg PO BID #8 cap Transmission Status: Received by [employer] #[id number] Primary Care Physician: Margarita Drake DO [Primary Care Provider] - Please follow up with your Primary Care Physician in: within 1-2 weeks Disposition: Home Minutes spent on discharge:: 40 Patient Condition:: Stable Medical Necessity - Tobacco Use Smoking Status: Never smoker Tobacco Use: Non-smoker Meaningful Use Info Meaningful Use Diagnoses (Choose all that apply): None applicable Code Visit Inpatient E&M: 10786 Disch Hosp
[2019-03-27 11:25] LABS: Bedside Glucose 141 mg/dL (70-110)
--- NOTE | 2019-03-28 15:32 | CASEMGMT ---
INDRA CM DC PHONE CALL DC DATE: 03/27/19 DC Disposition: Home Diagnosis on Discharge: Acute Klebsiella UTI, failed outpt therapy LACE/STRATA: 15/12 Attempted call to patient. No answer and no message machine identifier. Nasreen CASILLASN RN AC
== END 2019-03-27 12:46 | disposition home or self-care (01) | DRG 690 ==
LOC: ED 16:38 → PCU 19:17
PROVIDERS: Admitting Provider Family Medicine; Emergency Provider Emergency Medicine; Family Provider Internal Medicine; PCP Internal Medicine; Visit Provider Internal Medicine
DX: N39.0 Urinary tract infection, site not specified (principal); E87.2 Acidosis; I42.9 Cardiomyopathy, unspecified; B96.1 Klebsiella pneumoniae [K. pneumoniae] as the cause of diseases classified elsewhere; E11.9 Type 2 diabetes mellitus without complications; I10 Essential (primary) hypertension; I25.10 Atherosclerotic heart disease of native coronary artery without angina pectoris; K21.9 Gastro-esophageal reflux disease without esophagitis; G89.4 Chronic pain syndrome; Z79.4 Long term (current) use of insulin; E78.5 Hyperlipidemia, unspecified; I36.1 Nonrheumatic tricuspid (valve) insufficiency; I35.1 Nonrheumatic aortic (valve) insufficiency; M79.7 Fibromyalgia; F32.9 Major depressive disorder, single episode, unspecified; F41.9 Anxiety disorder, unspecified; I27.29 Other secondary pulmonary hypertension; Z96.641 Presence of right artificial hip joint
CPT/HCPCS: 36415; 74177; 80048; 80053; 81001; 82040; 82962; 83605; 83690; 85025; 85610; 85730; 87040; 87077; 87086; 87088; 87186; 96361; 96365; 96374; 96375; 99284; 99285; J7030; J7050; Q9967; J2405

== ENCOUNTER 2019-04-24 15:28 | Emergency (ER) | payer MEDICARE, OTHER, SELFPAY ==
[2019-04-24 15:28] VITALS: BMI 25.7
[2019-04-24 15:30] VITALS: BP 179/93; PULSE 122; RESP 23; TEMP 36.6; O2SAT 98; BMI 25.3
--- NOTE | 2019-04-24 15:44 | EKG12_ITS ---
Test Reason : GENERAL ILLNESS Blood Pressure : / mmHG Vent. Rate : 078 BPM Atrial Rate : 078 BPM P-R Int : 152 ms QRS Dur : 076 ms QT Int : 400 ms P-R-T Axes : 046 003 086 degrees QTc Int : 456 ms Normal sinus rhythm Septal infarct (cited on or before 21-DEC-2016) Inferior infarct (cited on or before 22-JAN-2017) Abnormal ECG Confirmed by ASTRID MERLOS ([id number]), editor magazine ZAHIRA REN ([id number]) on 04/29/2019 2:00:33 PM Referred By: CARLTON Confirmed By:ASTRID MERLOS
[2019-04-24] MEDS: 0.9% Normal Saline 1,000 ML 999 ML IV (15:54)
[2019-04-24] MEDS: Morphine 4 MG/ML Syringe IV (15:55)
[2019-04-24] MEDS: Ondansetron 4 MG/2 ML Vial IV (15:55)
[2019-04-24 15:56] LABS: Absolute Lymphocyte Count 1.81 X10^3/uL (0.83-4.51); Absolute Neutrophil Count 7.2 X10^3/uL (2.0-7.7); Basophil# 0.04 X10^3/uL; Basophil% 0.4 % (0-1); Eosinophil# 0.21 X10^3/uL; Eosinophils% 2.1 % (0-5); Hematocrit 45.9 % (37-47); Hemoglobin 15.2 g/dL (12.0-15.0); Lymphocyte # 1.81 X10^3/ul (4.0); Lymphocyte % 18.2 % (19-41); Mean Corp Hgb Conc 33.1 g/dL (32-36); Mean Corpuscular Hgb 33.4 pg (27.0-32.0); Mean Corpuscular Volume 100.9 fL (81-99); Mean Platelet Vol. 9.8 fl (6.2-12.0); Monocyte# 0.62 X10^3/uL; Monocyte% 6.3 % (0-10); NRBC Flagged by Analyzer 0 % (0-5); Neutrophil % 72.6 % (47-70); Platelet Count 244 K/mm3 (150-450); RBC Distribution Width CV 14.7 % (11.6-14.6); RBC Distribution Width SD 53.6 fl (35.1-43.9); Red Blood Count 4.55 M/mm3 (4.2-5.4); White Blood Count 9.9 K/mm3 (4.4-11.0)
[2019-04-24 16:25] LABS: Anion Gap 10 (5-15); BUN 11 mg/dL (7-18); BUN/Creat Ratio 15.9 RATIO (10-20); Calcium,Total 8.7 mg/dL (8.5-10.1); Chloride 103 mmol/L (98-107); Creatinine, Serum 0.69 mg/dL (0.55-1.02); EST Glomerular Filtration Rate 88 mL/min (>60); Est Glom Filt Rate - Afr Amer 106 mL/min (>60); Estimated Creatinine Clearance 43.74 ml/min; Glucose 168 mg/dL (74-106); Potassium 4.5 mmol/L (3.5-5.1); Sodium Level 139 mmol/L (136-145)
[2019-04-24 16:38] VITALS: BP 152/85; PULSE 81; RESP 16; TEMP 36.8; O2SAT 98
[2019-04-24 16:54] LABS: Bacteria 0 SEEN /hpf (None Seen); Mucous, Urine 0 SEEN /hpf (<or=2+); Red Blood Cells-Urine 0 SEEN /hpf (0-5)
[2019-04-24 16:58] LABS: Color, Urine Straw (Yellow); Glucose, Dipstick Normal (Normal); Ketone-Dipstick Negative (Negative); Leukocyte Esterase-Dipstick 100 /ul (Negative); Nitrite-Dipstick Negative (Negative); Occult Blood-Urine Negative /ul (Negative); Protein-Dipstick Negative (Negative); Urine Bilirubin Dipstick Negative (Negative); Urine Clarity Clear (Clear); Urine Urobilinogen Normal (Normal)
[2019-04-24 17:11] LABS: Squamous Epithelial Cells - UA 0-5 SEEN /hpf (5-10); White Blood Cells 0-5 SEEN /hpf (0-5)
--- NOTE | 2019-04-24 17:44 | CT_ITS ---
HISTORY:LT SIDED ABD PAIN, WEAKNESS,LEG PAIN, N/V LT SIDED ABD PAIN, WEAKNESS,LEG PAIN, N/V TECHNIQUE: Helically acquired images were obtained of the abdomen and pelvis following IV contrast. A radiation dose optimization technique was used for this scan. IV Contrast dosage and agent:100 Isovue 300 Oral contrast: None. COMPARISON: March 24, 2019 FINDINGS: # of images incl. paperwork: 512 LOWER CHEST: Scarring of the left lower lobe similar to prior study LIVER: Hepatomegaly. No focal masses GALLBLADDER AND BILIARY TREE: Cholecystectomy intrahepatic ductal dilatation similar to prior study. There is also extrahepatic ductal dilatation similar to prior study KIDNEYS AND URETERS: Nonobstructing calcification in inferior right kidney similar prior study Stable appearing left renal cysts ADRENAL GLANDS: Non-enlarged. SPLEEN: Normal size without focal cystic or solid mass. PANCREAS: No focal cystic or solid mass. BOWEL: Hiatal hernia similar to prior study Small bowel is unremarkable No mechanical obstruction No diverticulitis The appendix is not visualized but no pericecal inflammation There is soft tissue thickening that is seen within the left side of the pelvis on image 85 series 2 that was present on the prior study. This may represent scarring from prior hysterectomy. Correlate clinically LYMPH NODES: No enlarged mesenteric or retroperitoneal lymph nodes. PERITONEUM: No ascites or free air. No other fluid collection. VESSELS: Aorta is non-dilated. URINARY BLADDER: Incompletely distended, otherwise grossly unremarkable. REPRODUCTIVE ORGANS: Hysterectomy ABDOMINAL WALL: No discrete abdominal or pelvic wall hernia observed. BONES: Postsurgical changes are again noted within the lumbar spine extending from the level of L1-L5 with posterior rods and pedicle screws. Lateral osseous fusion is noted. Suspect a fracture of the right L3 pedicle screw not seen on the prior study. Suspect bone graft donor site involving the right ilium CT/Abdomen/Pelvis W IV Cont ONLY IMPRESSION: Hepatomegaly Cholecystectomy Stable left renal cyst Hiatal hernia similar to prior study No diverticulitis Hysterectomy Postsurgical changes at the lumbar spine from level of L1 L5. There does appear to be a broken right pedicle screw at L3 and on seen on the prior study Soft tissue thickening seen within the left pelvis unchanged from prior study. This may be related to prior scarring from surgery. If symptoms persist consider PET/CT for further evaluation Individualized dose optimization techniques were used for this CT. at 1841 Reported and signed by: Chantel Colvin DO Electronically Signed: Chantel Colvin DO at 18:40 EDT Tel , Service support ,
[2019-04-24 18:03] VITALS: BP 136/92; PULSE 89; RESP 16; TEMP 36.8; O2SAT 95
--- NOTE | 2019-04-24 18:56 | ED.VISSUMM ---
- ER Visit Summary Date of Service: 04/24/19 Chief Complaint: Nausea vomiting last night with left-sided abdominal pain. Recent UTI she is concerned she is a urinary tract infection again. Subjective fever. No documented temperature. Mild dysuria. Mild diarrhea. No chest pain. No shortness of breath. No coughing. History of Present Illness: The patient is a 73 F history of hypertension and prior DVT and PE. Prior history of appendectomy, cholecystectomy and hysterectomy. Patient states last night she started having some left-sided abdominal discomfort with nausea vomiting and mild diarrhea. Minimal dysuria. Had a UTI about a month ago she is concerned he may have come back. Physical Examination: Older female no acute distress. Vital signs are stable and afebrile. HEENT exam mildly dry membranes. Neck nontender. Lungs clear to auscultation. Heart regular rhythm on my exam at about 95-100. Soft. Nondistended normal biopsy of peritoneal signs. No hernia or mass. No signs of obstruction. Mild tenderness on the left mid posterior abdomen. No pulsatile mass. Patient is moving all 4 extremities. Calves are nontender without edema. Neurologically she is awake alert. Test Results: White count of 9. Hemoglobin 15. Chemistries normal normal creatinine and gap. UA normal. No signs of infection. CT abdomen pelvis with IV contrast only showed a prior cholecystectomy. Hepatomegaly. Hiatal hernia. Another surgeon chronic changes but no acute process and nothing to explain her pain. Emergency Department Course and Treatment: Repeat exam patient is doing well after IV fluids Zofran and morphine. Her abdomen is benign. No peritoneal signs. She and I went over all her test results. She is comfortably discharged home. Treatment Plan: Plenty of fluids and rest. Zofran as needed for nausea. Return if worse or follow-up with your doctor if not improving. Disposition: Discharge Impression: Viral gastroenteritis This note was generated with [employer] dictation software. It may contain incorrect words, spelling, and punctuation that were not noted in review of the chart prior to signing ED Disposition - Plan for ED Patient: Referrals: Margarita Drake DO [Primary Care Provider] -
--- NOTE | 2019-04-24 19:00 | ED.DEP ---
ED Disposition - Plan for ED Patient: Disposition: Home or Assisted Living Instructions: GASTROENTERITIS, Viral (4y-Adult) Prescriptions: Ondansetron [Zofran Odt] 4 mg PO Q8H PRN PRN #7 tab PRN Reason: Nausea Prescription Printed Referrals: Margarita Drake DO [Primary Care Provider] - Additional Instructions: Plenty of fluids and rest. Zofran as needed for nausea. Follow-up if not improving return if feeling worse.
[2019-04-24 19:12] VITALS: BP 136/90; PULSE 92; RESP 18; O2SAT 97
== END 2019-04-24 19:13 | disposition home or self-care (01) ==
PROVIDERS: Emergency Provider Emergency Medicine; Family Provider Internal Medicine; PCP Internal Medicine
DX: A08.4 Viral intestinal infection, unspecified (principal); Z87.440 Personal history of urinary (tract) infections; Z90.49 Acquired absence of other specified parts of digestive tract; I10 Essential (primary) hypertension; Z79.899 Other long term (current) drug therapy
CPT/HCPCS: 74177; 80048; 81001; 85025; 93005; 96361; 96374; 96375; 99285; J7030; Q9967; A4216; J2405

== ENCOUNTER 2019-05-23 10:24 | Emergency (ER) | payer MEDICARE, OTHER, SELFPAY ==
[2019-05-23 10:25] VITALS: BP 120/83; PULSE 83; RESP 17; TEMP 36.3; O2SAT 96; BMI 26.4
[2019-05-23] MEDS: 0.9% Normal Saline 1,000 ML 1000 ML IV (11:28)
[2019-05-23] MEDS: Ondansetron 4 MG/2 ML Vial IV (11:28)
[2019-05-23 11:31] LABS: Mucous, Urine 0 SEEN /hpf (<or=2+); Red Blood Cells-Urine 0 SEEN /hpf (0-5)
[2019-05-23 11:36] LABS: Absolute Lymphocyte Count 1.41 X10^3/uL (0.83-4.51); Absolute Neutrophil Count 5.1 X10^3/uL (2.0-7.7); Basophil# 0.03 X10^3/uL; Basophil% 0.4 % (0-1); Eosinophil# 0.13 X10^3/uL; Eosinophils% 1.8 % (0-5); Hematocrit 40.9 % (37-47); Hemoglobin 13.4 g/dL (12.0-15.0); Lymphocyte # 1.41 X10^3/ul (4.0); Lymphocyte % 19.3 % (19-41); Mean Corp Hgb Conc 32.8 g/dL (32-36); Mean Corpuscular Hgb 33.1 pg (27.0-32.0); Mean Platelet Vol. 9.4 fl (6.2-12.0); Monocyte# 0.64 X10^3/uL; Monocyte% 8.8 % (0-10); NRBC Flagged by Analyzer 0 % (0-5); Neutrophil # 5.07 X10^3/uL (2.7-7.7); Neutrophil % 69.6 % (47-70); Platelet Count 267 K/mm3 (150-450); RBC Distribution Width CV 14.9 % (11.6-14.6); RBC Distribution Width SD 55.8 fl (35.1-43.9); Red Blood Count 4.05 M/mm3 (4.2-5.4); White Blood Count 7.3 K/mm3 (4.4-11.0)
[2019-05-23 11:37] LABS: Color, Urine Yellow (Yellow); Glucose, Dipstick Normal (Normal); Ketone-Dipstick 5 mg/dl (Negative); Leukocyte Esterase-Dipstick 100 /ul (Negative); Nitrite-Dipstick Negative (Negative); Occult Blood-Urine Negative /ul (Negative); Protein-Dipstick Negative (Negative); Specific Gravity, Urine 1.005 (1.002-1.030); Urine Bilirubin Dipstick Negative (Negative); Urine Clarity Sl. Cloudy (Clear); Urine Urobilinogen Normal (Normal)
[2019-05-23 11:42] LABS: Squamous Epithelial Cells - UA 0-5 SEEN /hpf (5-10); White Blood Cells 0-5 SEEN /hpf (0-5)
[2019-05-23 11:43] LABS: Bacteria RARE /hpf (None Seen)
[2019-05-23 11:50] LABS: AST(SGOT) 19 U/L (15-37); Alanine Aminotransfer ALT/SGPT 19 U/L (13-56); Albumin, Serum 3.9 g/dL (3.2-5.0); Alkaline Phosphatase 59 U/L (45-117); Anion Gap 4 (5-15); BUN 10 mg/dL (7-18); BUN/Creat Ratio 16.1 RATIO (10-20); Bilirubin, Direct 0.14 mg/dL (0.00-0.30); Calcium,Total 8.7 mg/dL (8.5-10.1); Chloride 104 mmol/L (98-107); Creatinine, Serum 0.62 mg/dL (0.55-1.02); EST Glomerular Filtration Rate 100 mL/min (>60); Est Glom Filt Rate - Afr Amer 120 mL/min (>60); Estimated Creatinine Clearance 41.97 ml/min; Globulin 3.2 g/dL (2.2-4.2); Glucose 102 mg/dL (74-106); Lipase 33 U/L (73-393); Potassium 3.8 mmol/L (3.5-5.1); Protein, Total 7.1 g/dL (6.4-8.2); Sodium Level 140 mmol/L (136-145)
[2019-05-23 11:58] LABS: Lactic Acid 1.6 mmol/L (0.4-2.0)
--- NOTE | 2019-05-23 12:06 | CT_ITS ---
STUDY: CT ABDOMEN AND PELVIS WITH CONTRAST REASON FOR EXAM: Female, 73 years old. Abdominal pain. Diarrhea. RADIATION DOSAGE (If Supplied By Facility): CTDIvol = ( 12.96 ) mGy, DLP = ( 630.66 ) mGycm TECHNIQUE: Transaxial images were obtained from the dome of the diaphragm to the symphysis pubis without oral contrast. 100 IV Isovue 300 was administered. Sagittal and coronal images were reconstructed. Individualized dose optimization techniques were used for this CT. COMPARISON: Comparison is made with prior study dated April 24, 2019. FINDINGS: Increased linear markings at the left lung base suggestive of scarring. The visualized portions of the heart are within normal limits. There is decreased attenuation of the liver consistent with steatosis. Status post cholecystectomy. Mild degree of intrahepatic biliary ductal dilatation as well as mild dilatation of the common bile duct. This is unchanged. Normal spleen. There is diffuse atrophy of the pancreas. Normal bilateral adrenal glands. Punctate calcification in the lower pole calyx of the right kidney. 1.3 cm cyst in the posterior lower midportion of the left kidney. There is a small hiatal hernia. Normal small intestine. Normal colon. The appendix is visualized and appears normal. There is diffuse atherosclerotic calcification of the abdominal aorta, without a demonstrated aneurysm. Normal inferior vena cava. There is borderline retroperitoneal lymphadenopathy with enlarged nodes no greater than 10mm in the short axis diameter. Normal urinary bladder. There is absence of the uterus consistent with a prior hysterectomy. Normal abdominal wall. There are diffuse degenerative changes of the visualized lumbar spine. Prior fusion of the L1-L5 vertebrae utilizing intrapedicular screw and lorie fixation. Old compression fracture of the superior anterior endplate of the L2 1 vertebrae. Status post right total hip replacement. CT/Abdomen/Pelvis W IV Cont ONLY IMPRESSION: Fatty infiltration of the liver. Hiatal hernia. Status post appendectomy with intrahepatic biliary ductal dilatation. Electronically Signed: Florian Valenzuela, at 12:46 EDT , Service support ,
[2019-05-23] MEDS: 0.9% Normal Saline 1,000 ML 125 ML IV (13:02)
[2019-05-23 13:03] VITALS: BP 155/81; PULSE 75; RESP 14; O2SAT 94
--- NOTE | 2019-05-23 13:28 | ED.VISSUMM ---
- ER Visit Summary Date of Service: 05/23/19 Chief Complaint: Nausea and vomiting History of Present Illness: The patient is a 73 F who tells me that during the night she developed vomiting. She had diarrhea beginning yesterday that is worse today. She also fell yesterday getting out of bed. Is globally weak today. states that she has had this a couple times before and was diagnosed with a urinary tract infection and states that he wishes there is a way we could fix it. She denies any fevers but does note chills and sweats. She does note some urinary frequency. Physical Examination: Afebrile vital signs are stable Gen: Well-nourished well-developed Head: Normocephalic atraumatic Eyes: Perrl EOMI ENT: TMs clear no rhinorrhea moist mucous membranes Neck: Supple no lymphadenopathy no JVD nontender CVS: Regular rate rhythm no murmurs normal S1-S2 Respiratory: No distress clear to auscultation bilaterally chest nontender Abdomen: Soft mild diffuse tenderness to palpation nondistended normal bowel sounds no masses Back: Nontender Extremity: Nontender no edema Skin: Normal color no rash Neuro: alert orientated ?3 CN II-XII intact normal strength sensation reflexes gait cerebellar Psych: Normal affect normal mood Test Results: Basic labs are negative. Urinalysis negative. CT down pelvis did not show any acute findings to explain the patient's symptoms. Emergency Department Course and Treatment: She did IV fluids and Zofran. There is been no vomiting. She actually had a bowel movement that was formed soft stool not diarrhea. This point I have to say that I do not see evidence of UTI causing her vomiting is more likely a gastroenteritis and will treat conservatively at home. Would recommend Zofran and Imodium as needed as well as oral hydration Impression: 1. Gastroenteritis This note was generated with [employer] dictation software. It may contain incorrect words, spelling, and punctuation that were not noted in review of the chart prior to signing ED Disposition - Plan for ED Patient: Disposition: Home or Assisted Living Instructions: GASTROENTERITIS, Viral (6y-Adult) Prescriptions: Ondansetron [Zofran Odt] 4 mg PO Q8H PRN PRN #10 tab PRN Reason: Nausea Transmission Status: Received by [employer] #[id number] Referrals: Margarita Drake DO [Primary Care Provider] - 3-5 Days if not improving
[2019-05-23 13:57] VITALS: BP 155/81; PULSE 75; RESP 14; O2SAT 94
== END 2019-05-23 14:03 | disposition home or self-care (01) ==
PROVIDERS: Emergency Provider Emergency Medicine; Family Provider Internal Medicine; PCP Internal Medicine
DX: K52.9 Noninfective gastroenteritis and colitis, unspecified (principal)
CPT/HCPCS: 74177; 80048; 80076; 81001; 83605; 83690; 85025; 87506; 96361; 96374; 99283; J7030; Q9967; A4216; J2405

== ENCOUNTER → 2019-06-19 09:14 | Outpatient (CLI) | payer MEDICARE, OTHER, SELFPAY ==
[2019-05-23 10:25] VITALS: BMI 26.4
[2019-06-19 10:13] LABS: Absolute Lymphocyte Count 1.73 X10^3/uL (0.83-4.51); Absolute Neutrophil Count 3.6 X10^3/uL (2.0-7.7); Basophil# 0.06 X10^3/uL; Eosinophil# 0.14 X10^3/uL; Eosinophils% 2.4 % (0-5); Hemoglobin 13.2 g/dL (12.0-15.0); Lymphocyte # 1.73 X10^3/ul (4.0); Lymphocyte % 29.7 % (19-41); Mean Corp Hgb Conc 32.2 g/dL (32-36); Mean Corpuscular Volume 102.5 fL (81-99); Mean Platelet Vol. 9.7 fl (6.2-12.0); Monocyte% 5.1 % (0-10); NRBC Flagged by Analyzer 0 % (0-5); Neutrophil # 3.59 X10^3/uL (2.7-7.7); Neutrophil % 61.6 % (47-70); POSITIVE MORPHOLOGY YES; Platelet Count 345 K/mm3 (150-450); RBC Distribution Width CV 14.7 % (11.6-14.6); RBC Distribution Width SD 54.4 fl (35.1-43.9); White Blood Count 5.8 K/mm3 (4.4-11.0)
[2019-06-19 10:17] LABS: Differential Indicated SCAN CRITERIA MET
[2019-06-19 10:30] LABS: ALB/GLOB Ratio 1.4 RATIO (0.9-2.4); AST(SGOT) 13 U/L (15-37); Alanine Aminotransfer ALT/SGPT 19 U/L (13-56); Albumin, Serum 3.9 g/dL (3.2-5.0); Alkaline Phosphatase 59 U/L (45-117); Anion Gap 5 (5-15); BUN 20 mg/dL (7-18); BUN/Creat Ratio 29.9 RATIO (10-20); Calcium,Total 8.6 mg/dL (8.5-10.1); Chloride 102 mmol/L (98-107); Creatinine, Serum 0.67 mg/dL (0.55-1.02); EST Glomerular Filtration Rate 91 mL/min (>60); Est Glom Filt Rate - Afr Amer 110 mL/min (>60); Globulin 2.8 g/dL (2.2-4.2); Glucose 95 mg/dL (74-106); Potassium 3.8 mmol/L (3.5-5.1); Protein, Total 6.7 g/dL (6.4-8.2); Sodium Level 139 mmol/L (136-145)
== END ==
PROVIDERS: Family Provider Internal Medicine; PCP Internal Medicine; Referring Provider Internal Medicine Rheumatology; Visit Provider Internal Medicine Rheumatology
DX: M06.4 Inflammatory polyarthropathy (principal); M79.7 Fibromyalgia; M17.0 Bilateral primary osteoarthritis of knee; M16.0 Bilateral primary osteoarthritis of hip; K21.9 Gastro-esophageal reflux disease without esophagitis; M21.40 Flat foot [pes planus] (acquired), unspecified foot; F32.89 Other specified depressive episodes; F41.9 Anxiety disorder, unspecified; I10 Essential (primary) hypertension; E11.9 Type 2 diabetes mellitus without complications; G25.81 Restless legs syndrome; Z85.43 Personal history of malignant neoplasm of ovary; Z79.899 Other long term (current) drug therapy
CPT/HCPCS: 36415; 80053; 85025

== ENCOUNTER 2019-07-21 07:32 | Emergency (ER) | payer MEDICARE, OTHER, SELFPAY ==
[2019-07-21 07:33] VITALS: BP 151/95; PULSE 104; RESP 18; TEMP 35.8; O2SAT 99; BMI 26.6
--- NOTE | 2019-07-21 07:46 | ED.VIS.GEN ---
History of Present Illness Chief Complaint: Nausea/Vomiting/Diarrhea Informant: Patient Onset: Yesterday Context: Gradual Onset Current Severity: Moderate Maximum Severity: Moderate Narrative: Patient presents with complaint of nausea, vomiting, and diarrhea. She states she was not feeling well 2 days ago but yesterday started with vomiting and diarrhea. She has had subjective fever at home. She complains of some mid abdominal pain. She has had prior cholecystectomy, hysterotomy, appendectomy. She denies urinary symptoms. - Past Medical History (1) Anxiety Status: Chronic (2) CAD (coronary artery disease) Status: Chronic Comment: Mild (3) Depression Status: Chronic (4) Diabetes mellitus type 2, diet-controlled Status: Chronic (5) Fibromyalgia Status: Chronic (6) GERD (gastroesophageal reflux disease) Status: Chronic (7) Hyperlipidemia Status: Chronic (8) Hypertension Status: Chronic (9) Takotsubo cardiomyopathy Status: Chronic Comment: 2013 25%, 2017-60% Past Medical History - Allergies and Home Meds Allergies/Adverse Reactions: Allergies rosuvastatin calcium [From Crestor] Allergy (Verified 07/21/19 07:35) Itching simvastatin Allergy (Verified 07/21/19 07:35) Itching Primary Care Physician: Margarita Drake DO [Primary Care Provider] - 3-5 Days if not improving Prior records reviewed: Yes Surgical History: appendectomy, cholecystectomy, hysterectomy, total hip arthroplasty - Right 2003, revision 2013., total knee arthroplasty - Right, 08/19/2014., - - Brain Surgery for Budd Chiari x 2, Bilateral carpal tunnel release, cervical surgery 12/2013, Laminectomy 2000, 7 back surgeries Lives: Alone Smoking Status: Never smoker - Family History Maternal Family History: Family History (Last Reviewed 12/27/18 @ 13:52 by HUANG Scott) Mother Breast cancer Diabetes Carcinoma, lung Father Carcinoma, lung Family History: Reports: Cancer - breast cancer Paternal Family History: Family History (Last Reviewed 12/27/18 @ 13:52 by HUANG Scott) Mother Breast cancer Diabetes Carcinoma, lung Father Carcinoma, lung Family History: Reports: Cancer, Pulmonary Disease - Emphysema Review of Systems General: Reports: Chills, Fever, Subjective Eyes: Denies: Visual changes - bilaterally ENT: Denies: Bilateral ear pain Cardiovascular: Denies: Chest pain, Palpitations Respiratory: Denies: Dyspnea, Cough Gastrointestinal: Reports: Abdominal pain, Nausea, Vomiting, Diarrhea Genitourinary: Denies: Dysuria, Frequency Musculoskeletal: Denies: Back pain Skin: Denies: Rash Neurological: Reports: Weakness - Generalized weakness Hematologic: Denies: Easy bruising, Easy bleeding Allergy: Denies: Uticaria Physical Exam Vital Signs/Narrative: Vital Signs Temp Pulse Resp BP Pulse Ox 07/21/19 07:33 96.4 F L 104 H 18 151/95 H 99 Inital Vital Signs reviewed: Yes General: Well nourished, Well developed Head: Normocephalic ENT: Moist mucous membranes Neck: Supple Cardiovascular: Regular rate, Regular rhythm Respiratory: No distress, CTA bilaterally Abdomen: Soft, Tender - Mild epigastric tenderness., Hypoactive bowel sounds. Negative for: Guarding, Rebound tenderness Extremities: Nontender Skin: Normal color Neurological: Alert, Oriented x3 Psychological: Normal affect Diagnostic/Tx/Re-eval Laboratory Results 07/21/19 07/21/19 07/21/19 07:55 07:55 09:07 WBC 6.9 RBC 4.58 Hgb 15.1 H Hct 45.1 MCV 98.5 MCH 33.0 H MCHC 33.5 RDW Std Deviation 55.4 H RDW Coeff of Jaleel 15.9 H Plt Count 323 MPV 9.5 Immature Gran % (Auto) 0.400 Neut % (Auto) 67.2 Lymph % (Auto) 25.5 [place] % (Auto) 4.8 Eos % (Auto) 1.8 Baso % (Auto) 0.3 Absolute Neuts (auto) 4.6 Absolute Lymphs (auto) 1.75 Nucleated RBC % 0 Sodium 140 Potassium 3.6 Chloride 99 Carbon Dioxide 30.0 Anion Gap 11 BUN 17 Creatinine 0.76 Estim Creat Clear Calc 41.33 Est GFR (MDRD) Af Amer 96 Est GFR (MDRD) Non-Af 79 BUN/Creatinine Ratio 22.5 H Glucose 170 H Calcium 8.9 Total Bilirubin 1.20 H Direct Bilirubin 0.23 AST 20 ALT 26 Alkaline Phosphatase 66 Total Protein 7.6 Albumin 4.2 Globulin 3.4 Lipase 65 L Urine Color Yellow Urine Clarity Cloudy Urine pH 7.0 Ur Specific [place] 1.010 Urine Protein 30 H Urine Glucose (UA) Normal Urine Ketones Negative Urine Occult Blood 10 H Urine Nitrite Positive H Urine Bilirubin Negative Urine Urobilinogen Normal Ur Leukocyte Esterase 100 H Urine RBC 0 SEEN Urine WBC 5-10 SEEN Ur Squamous Epith Cells 0-5 SEEN Urine Bacteria 3+ Urine Mucus 0 SEEN - Medical Decision Making Patient was given Zofran, IV fluids, Protonix on arrival. She is able to get up and ambulate to the restroom a couple times. On repeat evaluation she was complaining of leg pain. She states she normally takes oxycodone at home for this and did not take a dose this morning. She is given last dose of oxycodone along with an IV dose of Rocephin. Urine was sent for culture. On final repeat eval patient does feel improved. She will be discharged home with a prescription for 3 days of Bactrim. Patient is given a prescription for Zofran at home as well. ED Disposition - Plan for ED Patient: Disposition: Home or Assisted Living Diagnosis: Cystitis Instructions: Bladder Infection, Female (Adult), VOMITING AND DIARRHEA, Nonspecific (Adult) Prescriptions: Smz/Tmp Ds [Bactrim Ds] 1 tab PO BID #6 tab Prescription Printed Ondansetron [Zofran Odt] 4 mg PO Q8H PRN PRN #10 tab PRN Reason: Nausea Prescription Printed Referrals: Margarita Drake DO [Primary Care Provider] - 3-5 Days if not improving
[2019-07-21 08:03] LABS: Absolute Lymphocyte Count 1.75 X10^3/uL (0.83-4.51); Absolute Neutrophil Count 4.6 X10^3/uL (2.0-7.7); Basophil# 0.02 X10^3/uL; Basophil% 0.3 % (0-1); Eosinophil# 0.12 X10^3/uL; Eosinophils% 1.8 % (0-5); Hematocrit 45.1 % (37-47); Hemoglobin 15.1 g/dL (12.0-15.0); Lymphocyte # 1.75 X10^3/ul (4.0); Lymphocyte % 25.5 % (19-41); Mean Corp Hgb Conc 33.5 g/dL (32-36); Mean Corpuscular Volume 98.5 fL (81-99); Mean Platelet Vol. 9.5 fl (6.2-12.0); Monocyte# 0.33 X10^3/uL; Monocyte% 4.8 % (0-10); NRBC Flagged by Analyzer 0 % (0-5); Neutrophil % 67.2 % (47-70); Platelet Count 323 K/mm3 (150-450); RBC Distribution Width CV 15.9 % (11.6-14.6); RBC Distribution Width SD 55.4 fl (35.1-43.9); Red Blood Count 4.58 M/mm3 (4.2-5.4); White Blood Count 6.9 K/mm3 (4.4-11.0)
[2019-07-21] MEDS: 0.9% Normal Saline 1,000 ML 500 ML IV (08:13)
[2019-07-21] MEDS: Ondansetron 4 MG/2 ML Vial IV (08:14)
[2019-07-21 08:18] LABS: AST(SGOT) 20 U/L (15-37); Alanine Aminotransfer ALT/SGPT 26 U/L (13-56); Albumin, Serum 4.2 g/dL (3.2-5.0); Alkaline Phosphatase 66 U/L (45-117); Anion Gap 11 (5-15); BUN 17 mg/dL (7-18); BUN/Creat Ratio 22.5 RATIO (10-20); Bilirubin, Direct 0.23 mg/dL (0.00-0.30); Calcium,Total 8.9 mg/dL (8.5-10.1); Chloride 99 mmol/L (98-107); Creatinine, Serum 0.76 mg/dL (0.55-1.02); EST Glomerular Filtration Rate 79 mL/min (>60); Est Glom Filt Rate - Afr Amer 96 mL/min (>60); Estimated Creatinine Clearance 41.33 ml/min; Globulin 3.4 g/dL (2.2-4.2); Glucose 170 mg/dL (74-106); Lipase 65 U/L (73-393); Potassium 3.6 mmol/L (3.5-5.1); Protein, Total 7.6 g/dL (6.4-8.2); Sodium Level 140 mmol/L (136-145)
[2019-07-21 09:13] LABS: Mucous, Urine 0 SEEN /hpf (<or=2+); Red Blood Cells-Urine 0 SEEN /hpf (0-5)
[2019-07-21 09:21] LABS: Color, Urine Yellow (Yellow); Glucose, Dipstick Normal (Normal); Ketone-Dipstick Negative (Negative); Leukocyte Esterase-Dipstick 100 /ul (Negative); Nitrite-Dipstick Positive (Negative); Occult Blood-Urine 10 /ul (Negative); Protein-Dipstick 30 mg/dl (Negative); Urine Bilirubin Dipstick Negative (Negative); Urine Clarity Cloudy (Clear); Urine Urobilinogen Normal (Normal)
[2019-07-21 09:30] LABS: Bacteria 3+ /hpf (None Seen); Squamous Epithelial Cells - UA 0-5 SEEN /hpf (5-10); White Blood Cells 5-10 SEEN /hpf (0-5)
[2019-07-21] MEDS: oxyCODONE 5 MG Tablet PO (10:01)
[2019-07-21 10:04] VITALS: BP 174/84; PULSE 75; RESP 18; O2SAT 96
[2019-07-21] MEDS: Ceftriaxone 1 GM/50 ML BAG IV (10:56)
[2019-07-21 11:04] VITALS: BP 128/66; PULSE 84; RESP 18; TEMP 36.6; O2SAT 97
== END 2019-07-21 11:05 | disposition home or self-care (01) ==
PROVIDERS: Emergency Provider Emergency Medicine; Family Provider Internal Medicine; PCP Internal Medicine
DX: N30.90 Cystitis, unspecified without hematuria (principal); I25.10 Atherosclerotic heart disease of native coronary artery without angina pectoris; I10 Essential (primary) hypertension; E78.5 Hyperlipidemia, unspecified; E11.9 Type 2 diabetes mellitus without complications; M79.7 Fibromyalgia; I51.81 Takotsubo syndrome; K21.9 Gastro-esophageal reflux disease without esophagitis; Z79.899 Other long term (current) drug therapy
CPT/HCPCS: 80048; 80076; 81001; 83690; 85025; 87077; 87086; 87088; 87186; 96361; 96365; 96367; 96375; 99285; J7030; A4216; J2405

== ENCOUNTER → 2019-07-26 13:51 | Outpatient (CLI) | payer MEDICARE, OTHER, SELFPAY ==
[2019-07-21 07:33] VITALS: BMI 26.6
--- NOTE | 2019-07-26 14:01 | RAD_ITS ---
STUDY: X-RAY - THORACIC SPINE REASON FOR EXAM: Female, 74 years old. Upper back pain. TECHNIQUE: 3 view(s) of the thoracic spine were obtained. COMPARISON: None. FINDINGS: There is a slight increase in the normal thoracic kyphosis. There is mild scoliosis with convexity to the right. There is demineralization of the thoracic spine along with endplate spondylosis. There is advanced multilevel disc space narrowing of the thoracic spine. The soft tissue structures are unremarkable. RAD/Thoracic Spine 3 Views IMPRESSION: Diffuse osteopenia along with advanced multilevel spondylosis/degenerative disease. No acute fracture or subluxation. Electronically Signed: Vibha Lua MD at 6:58 EST , Service support ,
== END ==
PROVIDERS: Family Provider Internal Medicine; PCP Internal Medicine
DX: M47.814 Spondylosis without myelopathy or radiculopathy, thoracic region (principal)
CPT/HCPCS: 72072

== ENCOUNTER → 2019-08-21 08:06 | Outpatient (CLI) | payer MEDICARE, OTHER, SELFPAY ==
--- NOTE | 2019-08-21 08:08 | US_ITS ---
STUDY: ABDOMINAL ULTRASOUND - RIGHT UPPER QUADRANT REASON FOR VISIT: Female, 74 years old. TECHNIQUE: Ultrasound evaluation of the right upper quadrant was performed with real-time and static rueda-scale imaging. TECHNICAL QUALITY: Adequate. COMPARISON: None. FINDINGS: Liver: The liver measures 16 cm. There is mild intrahepatic biliary duct dilatation. There is increased echogenicity of the liver. There is hepatic color flow. The direction of portal flow is hepatopetal. There is no demonstrated mass lesion. Gallbladder: Removed. Common Bile Duct (C.B.D.): The common bile duct measures 10 mm. Pancreas: Normal size of the head, body and tail of the pancreas. There is normal echogenicity of the pancreas. There is no demonstrated pancreatic mass or cyst. Right Kidney: Normal size of the right kidney. The right kidney measures 11 cm. Normal renal cortex. There is no demonstrated renal mass or cyst. There is no right hydronephrosis. US/Liver IMPRESSION: Mild intra and extrahepatic biliary ductal dilatation. Clinical correlation is recommended. Consider MRCP. Status post cholecystectomy. Fatty liver. Electronically Signed: Parminder Brink, at 21:01 EST Tel , Service support ,
== END ==
PROVIDERS: Family Provider Internal Medicine; PCP Internal Medicine; Referring Provider Nurse Practitioner; Visit Provider Nurse Practitioner
DX: R82.2 Biliuria (principal)
CPT/HCPCS: 76705

== ENCOUNTER 2019-08-28 12:14 | Emergency (ER) | payer MEDICARE, OTHER, SELFPAY ==
[2019-08-28 12:16] VITALS: BP 142/88; PULSE 94; RESP 16; TEMP 36.4; BMI 27.8
--- NOTE | 2019-08-28 12:34 | ED.DCSUM_ITS ---
- ER Visit Summary Date of Service: 08/28/19 Chief Complaint: Mouth pain History of Present Illness: The patient is a 74 F who presents with mouth pain that began last night but became worse today. Patient noted sores in her mouth today. Patient states her pain is aching. Patient states her pain is worse with swallowing and drinking. Patient states nothing seems to help. Patient states the pain is been constant since last night. Patient denies any fevers or chills. Patient denies any shortness of breath. Patient denies any swelling. Physical Examination: Vital signs are stable. Patient is afebrile. Patient is in no acute distress. Oral mucosa is pink and moist. There are aphthous ulcers noted in the soft palate and sublingual area. There is no edema. Oropharynx is clear. Airway is patent. Neck is supple. Trachea is midline. There is some mild submandibular lymphadenopathy. Heart was regular rate and rhythm. Lungs are clear and equal bilaterally. Abdomen is soft. Bowel sounds are normal. There is no tenderness. Cranial nerves II through XII are intact. There are no focal motor or sensory deficits noted. Emergency Department Course and Treatment: Patient was given a prescription for Magic mouthwash. Patient was instructed to follow-up with her primary care physician in 5 to 7 days. Patient was advised that this is most likely a viral infection and antibiotics are not necessary. Patient understood and was agreeable with the plan. All questions were answered. Disposition: Discharge home Impression: 1. Aphthous ulcers This note was generated with [employer]oyush[employer] dictation software. It may contain incorrect words, spelling, and punctuation that were not noted in review of the chart prior to signing ED Disposition - Plan for ED Patient: Disposition: Home or Assisted Living Diagnosis: Aphthous ulcer of mouth Instructions: Aphthous Ulcer Prescriptions: Magic Mouth Wash 10 ml PO 4X/DAY PRN PRN #300 ml PRN Reason: Mouth Irritation Prescription Printed Referrals: Margarita Drake DO [Primary Care Provider] - 5-7 Days
[2019-08-28 12:49] VITALS: RESP 17; O2SAT 96
[2019-08-28 12:59] VITALS: PULSE 78; RESP 20; O2SAT 96
== END 2019-08-28 13:00 | disposition home or self-care (01) ==
LOC: ED 12:47
PROVIDERS: Emergency Provider Emergency Medicine; Family Provider Internal Medicine; PCP Internal Medicine
DX: K12.0 Recurrent oral aphthae (principal); I10 Essential (primary) hypertension; K21.9 Gastro-esophageal reflux disease without esophagitis; Z79.899 Other long term (current) drug therapy; R51 Headache
CPT/HCPCS: 94760; 99282

== ENCOUNTER 2019-08-31 06:40 | Emergency (ER) | payer MEDICARE, OTHER, SELFPAY ==
[2019-08-31 06:42] VITALS: BP 179/129; PULSE 102; RESP 16; TEMP 35.6; O2SAT 97; BMI 25.8
[2019-08-31 06:47] VITALS: BP 160/95; PULSE 98
--- NOTE | 2019-08-31 07:02 | EKG12_ITS ---
Test Reason : DYSRHYTHMIA Blood Pressure : / mmHG Vent. Rate : 098 BPM Atrial Rate : 098 BPM P-R Int : 152 ms QRS Dur : 080 ms QT Int : 414 ms P-R-T Axes : 059 003 103 degrees QTc Int : 528 ms Normal sinus rhythm with sinus arrhythmia Septal infarct , age undetermined Inferior infarct , age undetermined Abnormal ECG Confirmed by LISANDRA ARAGON, PINEDA ([id number]), slot editor MILVIA MCLEAN ([id number]) on 09/03/2019 9:57:26 AM Referred By: Leo Park Confirmed By:PINEDA FRY MD
--- NOTE | 2019-08-31 07:03 | ED.VIS.GEN ---
History of Present Illness Chief Complaint: Nausea/Vomiting Detail of Chief Complaint: And diarrhea as well as mouth sores Informant: Patient, Significant Other Onset: Days Context: Sudden Onset Timing: Continuous Quality: Painful oral lesions and abdominal pain Location: Lips and mouth and generalized abdominal pain Current Severity: Mild Maximum Severity: Moderate Worsened by: Please read HPI Relieved by: Nothing Associated Symptoms: Dry mouth, thirst and orthostatic symptoms Narrative: Patient is an elderly woman with multiple medical problems who was seen on August 28 and diagnosed with aphthous ulcers. She was treated with Magic mouthwash. She presents today because of nausea, vomiting and diarrhea that started August 29. She is had numerous episodes of emesis since last evening and multiple loose watery stools with mucus. She did not noted blood in her stool or emesis. She does complain of subjective fever. She reports generalized weakness. She denies ocular, visual auditory symptoms. Denies headache. Denies neck pain or neck stiffness. She states the Magic mouthwash is not alleviating the pain. She denies cardiac or respiratory symptoms. She does report generalized abdominal pain with nausea, vomiting diarrhea. She denies ill contacts. She is now been antibiotics in the past month. 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 She also reports urinary symptoms. She denies skin lesions. She denies neurologic symptoms. Prior similar symptoms: Yes Recent Illness/Hospitalization: Yes - Past Medical History (1) Anxiety Status: Chronic (2) CAD (coronary artery disease) Status: Chronic Comment: Mild (3) Chiari malformation Status: Chronic (4) Chronic Klebsiella Urine Colonization Status: Chronic (5) Depression Status: Chronic (6) Diabetes mellitus type 2, diet-controlled Status: Chronic (7) Fibromyalgia Status: Chronic (8) History of total right hip replacement Status: Chronic (9) Hyperlipidemia Status: Chronic (10) Hypertension Status: Chronic (11) Nocturnal hypoxemia Status: Chronic (12) Nonischemic cardiomyopathy Status: Chronic (13) Nonrheumatic aortic (valve) insufficiency Status: Chronic (14) Nonrheumatic tricuspid (valve) insufficiency Status: Chronic (15) Osteoarthritis of left knee Status: Chronic (16) Other secondary pulmonary hypertension Status: Chronic (17) Takotsubo cardiomyopathy Status: Chronic Comment: 2013 25%, 2017-60% (18) Hx pulmonary embolism Status: Resolved Past Medical History - Allergies and Home Meds Allergies/Adverse Reactions: Allergies rosuvastatin calcium [From Crestor] Allergy (Verified 08/31/19 06:41) Itching simvastatin Allergy (Verified 08/31/19 06:41) Itching Primary Care Physician: Margarita Drake DO [Primary Care Provider] - Prior records reviewed: Yes Surgical History: appendectomy, cholecystectomy, hysterectomy, total hip arthroplasty - Right 2003, revision 2013., total knee arthroplasty - Right, 08/19/2014., - - Brain Surgery for Budd Chiari x 2, Bilateral carpal tunnel release, cervical surgery 12/2013, Laminectomy 2000, 7 back surgeries Lives: Spouse/ Significant Other Smoking Status: Never smoker Alcohol: None Drugs: None - Family History Maternal Family History: Family History (Last Reviewed 12/27/18 @ 13:52 by HUANG Scott) Mother Breast cancer Diabetes Carcinoma, lung Father Carcinoma, lung Family History: Reports: Cancer - breast cancer Paternal Family History: Family History (Last Reviewed 12/27/18 @ 13:52 by HUANG Scott) Mother Breast cancer Diabetes Carcinoma, lung Father Carcinoma, lung Family History: Reports: Cancer, Pulmonary Disease - Emphysema Review of Systems General: Reports: Malaise. Denies: Chills, Fever, Subjective, Sweats Eyes: Denies: Visual changes - bilaterally, Blurred Vision - bilaterally, Diplopia ENT: Denies: Bilateral ear pain, Rhinorrhea, Sore throat Cardiovascular: Denies: Chest pain, Palpitations Respiratory: Denies: Dyspnea, Cough, Dyspnea on exertion Gastrointestinal: Reports: Abdominal pain, Nausea, Vomiting, Diarrhea. Denies: Constipation, Melena, Hematochezia Genitourinary: Reports: Dysuria. Denies: Hematuria, Frequency Musculoskeletal: Denies: Myalgias, Arthralgias, Neck pain, Back pain, Swelling, Extremity Pain, -, - Skin: Denies: Rash, Wounds Neurological: Denies: Headache, Weakness, Numbness Endocrine: Denies: Polyuria, Polydipsia Hematologic: Denies: Easy bruising, Easy bleeding Allergy: Denies: Uticaria, Swelling of the mouth, Swelling of the tongue Physical Exam Vital Signs/Narrative: Vital Signs Temp Pulse Resp BP Pulse Ox 08/31/19 06:47 98 160/95 H 08/31/19 06:42 96.1 F L 102 H 16 179/129 H 97 Inital Vital Signs reviewed: Yes General: Well nourished, Well developed, No Acute Distress Head: Normocephalic, Atraumatic Eyes: Perrl, EOMI. Negative for: Pale conjunctiva, Scleral icterus ENT: No rhinorrhea, Dry mucous membranes, - - Since oral lesions are consistent with HSV. Neck: Supple, Nontender, No lymphadenopathy, No JVD, - - He is midline. There is no stridor. Cardiovascular: Regular rhythm, No murmurs, Normal S1, Normal S2, Tachycardia Respiratory: No distress, CTA bilaterally, Chest nontender Abdomen: Soft, No masses, Tender, Guarding, Hypoactive bowel sounds. Negative for: Nontender, Nondistended, Normal bowel sounds, Rebound tenderness, Hyperactive bowel sounds, Hepatomegaly, Splenomegaly, Mass, Pulsatile mass, Ventral hernia, Inguinal hernia, Umbilical hernia Back: Nontender, Normal Inspection. Negative for: CVA tenderness Extremities: Nontender, No edema Skin: Normal color, No rash, No Trauma. Negative for: Cyanosis, Diaphoresis, Jaundice Neurological: Alert, Oriented x3, Cranial nerves II-XII grossly intact, Normal Strength, Normal Sensation Psychological: Depressed Diagnostic/Tx/Re-eval Laboratory Results 08/31/19 08/31/19 08/31/19 06:12 06:12 07:30 WBC 7.4 RBC 4.28 Hgb 14.4 Hct 44.0 MCV 102.8 H MCH 33.6 H MCHC 32.7 RDW Std Deviation 63.9 H RDW Coeff of Jaleel 17.5 H Plt Count 321 MPV 9.4 Immature Gran % (Auto) 0.400 Neut % (Auto) 57.0 Lymph % (Auto) 30.7 [place] % (Auto) 9.9 Eos % (Auto) 1.9 Baso % (Auto) 0.1 Absolute Neuts (auto) 4.2 Absolute Lymphs (auto) 2.27 Nucleated RBC % 0 Sodium Cancelled 140 Potassium Cancelled 4.1 Chloride Cancelled 105 Carbon Dioxide Cancelled 28.0 Anion Gap Cancelled 7 BUN Cancelled 18 Creatinine Cancelled 0.70 Estim Creat Clear Calc Cancelled 41.33 Est GFR (MDRD) Af Amer Cancelled 105 Est GFR (MDRD) Non-Af Cancelled 87 BUN/Creatinine Ratio Cancelled 25.9 H Glucose Cancelled 171 H Calcium Cancelled 8.5 BC is unremarkable. Basic metabolic panel is marked for an elevated glucose. Patient does have history of diabetes. - EKG Initial EKG Interpretation: Sinus Rhythm - Sinus rhythm with a ventricular rate of 98. WV interval is 152. QRS duration 80 ms. QT duration 414 ms. Lawrence is normal. There is decreased anterior force noted. The EKG was obtained per nurse protocol. - Medical Decision Making Patient was informed that the lesions in her mouth are secondary to HSV infection. Clinically she is dehydrated. Will administer 1 L of normal saline. She also received 4 mg of Zofran. Since she has had nausea and vomiting and diarrhea for the past 3 days will obtain electrolyte panel and CBC. Will reevaluate after hydration and antiemetic. She still has significant discomfort and blood work is abnormal will consider CT of the abdomen with p.o. and IV contrast. Patient did pass p.o. challenge. Blood work is unremarkable. Will discharge to home with prescription for Zofran and appropriate home-going instructions ED Disposition - Plan for ED Patient: Disposition: Home or Assisted Living Diagnosis: Abdominal pain, vomiting, and diarrhea, Primary herpes simplex with gingivostomatitis Instructions: VOMITING AND DIARRHEA, Nonspecific (Adult), HERPES LABIALIS, HSV: Type I Prescriptions: Ondansetron [Zofran Odt] 4 mg PO Q8H PRN PRN #10 tab PRN Reason: Nausea Transmission Status: Pending to [facility] [place] [facility] Referrals: Margarita Drake DO [Primary Care Provider] - As Needed
[2019-08-31 07:08] LABS: Absolute Lymphocyte Count 2.27 X10^3/uL (0.83-4.51); Absolute Neutrophil Count 4.2 X10^3/uL (2.0-7.7); Basophil# 0.01 X10^3/uL; Basophil% 0.1 % (0-1); Eosinophil# 0.14 X10^3/uL; Eosinophils% 1.9 % (0-5); Hemoglobin 14.4 g/dL (12.0-15.0); Lymphocyte # 2.27 X10^3/ul (4.0); Lymphocyte % 30.7 % (19-41); Mean Corp Hgb Conc 32.7 g/dL (32-36); Mean Corpuscular Hgb 33.6 pg (27.0-32.0); Mean Corpuscular Volume 102.8 fL (81-99); Mean Platelet Vol. 9.4 fl (6.2-12.0); Monocyte# 0.73 X10^3/uL; Monocyte% 9.9 % (0-10); NRBC Flagged by Analyzer 0 % (0-5); Neutrophil # 4.21 X10^3/uL (2.7-7.7); Platelet Count 321 K/mm3 (150-450); RBC Distribution Width CV 17.5 % (11.6-14.6); RBC Distribution Width SD 63.9 fl (35.1-43.9); Red Blood Count 4.28 M/mm3 (4.2-5.4); White Blood Count 7.4 K/mm3 (4.4-11.0)
[2019-08-31] MEDS: 0.9% Normal Saline 1,000 ML 1000 ML IV (07:12)
[2019-08-31] MEDS: Morphine 2 MG/ML Syringe IV (07:13)
[2019-08-31] MEDS: Ondansetron 4 MG/2 ML Vial IV (07:13)
--- NOTE | 2019-08-31 07:23 | NURSING ---
chemistries hemolized
[2019-08-31 07:51] LABS: Anion Gap 7 (5-15); BUN 18 mg/dL (7-18); BUN/Creat Ratio 25.9 RATIO (10-20); Calcium,Total 8.5 mg/dL (8.5-10.1); Chloride 105 mmol/L (98-107); EST Glomerular Filtration Rate 87 mL/min (>60); Est Glom Filt Rate - Afr Amer 105 mL/min (>60); Estimated Creatinine Clearance 41.33 ml/min; Glucose 171 mg/dL (74-106); Potassium 4.1 mmol/L (3.5-5.1); Sodium Level 140 mmol/L (136-145)
[2019-08-31 08:42] VITALS: RESP 18
[2019-08-31 08:43] VITALS: BP 150/94; PULSE 101; RESP 18; O2SAT 99
== END 2019-08-31 09:28 | disposition home or self-care (01) ==
PROVIDERS: Emergency Provider Emergency Medicine; Family Provider Internal Medicine; PCP Internal Medicine
DX: R10.84 Generalized abdominal pain (principal); R11.2 Nausea with vomiting, unspecified; R19.7 Diarrhea, unspecified; B00.2 Herpesviral gingivostomatitis and pharyngotonsillitis; E86.0 Dehydration; I25.10 Atherosclerotic heart disease of native coronary artery without angina pectoris; I27.29 Other secondary pulmonary hypertension; E11.9 Type 2 diabetes mellitus without complications; I10 Essential (primary) hypertension; I51.81 Takotsubo syndrome; I35.1 Nonrheumatic aortic (valve) insufficiency; I36.1 Nonrheumatic tricuspid (valve) insufficiency; M17.11 Unilateral primary osteoarthritis, right knee; I42.8 Other cardiomyopathies; M79.7 Fibromyalgia; E78.5 Hyperlipidemia, unspecified; F32.9 Major depressive disorder, single episode, unspecified; F41.9 Anxiety disorder, unspecified; Z79.84 Long term (current) use of oral hypoglycemic drugs; Z79.899 Other long term (current) drug therapy; Z86.711 Personal history of pulmonary embolism; Z96.641 Presence of right artificial hip joint; Z90.710 Acquired absence of both cervix and uterus; Z90.49 Acquired absence of other specified parts of digestive tract
CPT/HCPCS: 80048; 85025; 93005; 96361; 96374; 96375; 99285; A4216; J2405

== ENCOUNTER 2019-09-01 10:35 | Inpatient (IN) | payer MEDICARE, OTHER, SELFPAY ==
[2019-08-31 06:42] VITALS: BMI 25.8
[2019-09-01] VITALS (10 sets, daily range): BP systolic 133–165; BP diastolic 64–87; PULSE 68–103; RESP 16–20; TEMP 36.1–36.9; O2SAT 96–99; BMI 26.6; BMI 26.2; BMI 26.3
[2019-09-01 10:52] LABS: Absolute Lymphocyte Count 1.26 X10^3/uL (0.83-4.51); Absolute Neutrophil Count 3.8 X10^3/uL (2.0-7.7); Basophil# 0.03 X10^3/uL; Basophil% 0.5 % (0-1); Eosinophil# 0.16 X10^3/uL; Eosinophils% 2.7 % (0-5); Hematocrit 40.9 % (37-47); Hemoglobin 13.5 g/dL (12.0-15.0); Lymphocyte # 1.26 X10^3/ul (4.0); Lymphocyte % 21.4 % (19-41); Mean Corpuscular Hgb 34.1 pg (27.0-32.0); Mean Corpuscular Volume 103.3 fL (81-99); Mean Platelet Vol. 9.5 fl (6.2-12.0); Monocyte# 0.66 X10^3/uL; Monocyte% 11.2 % (0-10); NRBC Flagged by Analyzer 0 % (0-5); Neutrophil # 3.77 X10^3/uL (2.7-7.7); Neutrophil % 63.9 % (47-70); Platelet Count 260 K/mm3 (150-450); RBC Distribution Width SD 63.6 fl (35.1-43.9); Red Blood Count 3.96 M/mm3 (4.2-5.4); White Blood Count 5.9 K/mm3 (4.4-11.0)
[2019-09-01 11:04] LABS: Anion Gap 7 (5-15); BUN 21 mg/dL (7-18); BUN/Creat Ratio 28.5 RATIO (10-20); Calcium,Total 9.2 mg/dL (8.5-10.1); Chloride 104 mmol/L (98-107); Creatinine, Serum 0.74 mg/dL (0.55-1.02); EST Glomerular Filtration Rate 81 mL/min (>60); Est Glom Filt Rate - Afr Amer 99 mL/min (>60); Estimated Creatinine Clearance 41.33 ml/min; Glucose 141 mg/dL (74-106); Potassium 3.6 mmol/L (3.5-5.1); Sodium Level 140 mmol/L (136-145)
[2019-09-01 11:42] LABS: Mucous, Urine 0 SEEN /hpf (<or=2+); Red Blood Cells-Urine 0 SEEN /hpf (0-5)
[2019-09-01 11:47] LABS: Color, Urine Yellow (Yellow); Glucose, Dipstick Normal (Normal); Ketone-Dipstick 50 mg/dl (Negative); Leukocyte Esterase-Dipstick 25 /ul (Negative); Nitrite-Dipstick Negative (Negative); Occult Blood-Urine Negative /ul (Negative); Protein-Dipstick Negative (Negative); Urine Bilirubin Dipstick 1 mg/dL (Negative); Urine Clarity Sl. Cloudy (Clear); Urine Urobilinogen 4 mg/dl (Normal)
--- NOTE | 2019-09-01 11:49 | CT_ITS ---
STUDY: CT ABDOMEN AND PELVIS WITH CONTRAST REASON FOR EXAM: Female, 74 years old. N/V/D, ABD PAIN RADIATION DOSAGE (If Supplied By Facility): CTDIvol = ( 14.45 ) mGy, DLP = ( 701.82 ) mGycm TECHNIQUE: Transaxial images were obtained from the dome of the diaphragm to the symphysis pubis without oral contrast. IV 100mL Isovue-300 was administered. Sagittal and coronal images were reconstructed. Individualized dose optimization techniques were used for this CT. COMPARISON: May 23, 2019 FINDINGS: The visualized lung bases are unremarkable. The visualized portions of the heart are within normal limits. Normal liver. There is non-visualization of the gallbladder, which may be secondary to either contraction or a prior cholecystectomy. Normal spleen. Normal pancreas. Normal bilateral adrenal glands. There is a 3 mm calcification at the lower pole of the right kidney. Normal left kidney. There is a small hiatal hernia. Normal small intestine. There is circumferential and diffuse thickening of the colon most prominent at the transverse colon, consistent with colitis. There is diverticulosis. There is non-visualization of the appendix. There is diffuse atherosclerotic calcification of the abdominal aorta, without a demonstrated aneurysm. Normal inferior vena cava. Normal retroperitoneum. Normal urinary bladder. Normal abdominal wall. There are diffuse degenerative changes of the visualized lumbar spine. There is extensive posterior fusion CT/Abdomen/Pelvis W IV Cont ONLY IMPRESSION: Thickening of the colon, consistent with colitis. Differential considerations are inflammatory, infectious and ischemic disease. Moderate aortoiliac atherosclerosis. Small nonobstructing right renal calculus. Electronically Signed: Jessica Tello MD at 15:27 EST Tel , Service support ,
[2019-09-01 11:52] LABS: Bacteria 3+ /hpf (None Seen); Squamous Epithelial Cells - UA 0-5 SEEN /hpf (5-10); White Blood Cells 0-5 SEEN /hpf (0-5)
[2019-09-01] MEDS: Morphine 4 MG/ML Syringe IV (12:07)
[2019-09-01] MEDS: Ondansetron 4 MG/2 ML Vial IV (12:07)
[2019-09-01] MEDS: 0.9% Normal Saline 1,000 ML 999 ML IV (12:10)
--- NOTE | 2019-09-01 12:11 | ED.VIS.GEN ---
History of Present Illness Informant: Patient Narrative: 74-year-old female presents with concern for nausea, vomiting, and diarrhea. States that 4 days ago she developed scaling on her lips. Was diagnosed with aphthous ulcers here at this emergency department. Was given Magic mouthwash. Patient states that yesterday she began developing diarrhea with vomiting. Intermittent abdominal pain which she describes as cramping in nature. Denies any hematochezia or melena. Denies any chest pain, shortness of breath, diaphoresis. <Chavo Pedro - Last Filed: 09/01/19 17:16> <Edward Dill - Last Filed: 09/01/19 23:37> Chief Complaint: Nausea/Vomiting/Diarrhea Past Medical History Prior records reviewed: Yes Surgical History: appendectomy, cholecystectomy, hysterectomy, total hip arthroplasty - Right 2003, revision 2013., total knee arthroplasty - Right, 08/19/2014., - - Brain Surgery for Budd Chiari x 2, Bilateral carpal tunnel release, cervical surgery 12/2013, Laminectomy 2000, 7 back surgeries Smoking Status: Never smoker - Family History Maternal Family History: Family History (Last Reviewed 12/27/18 @ 13:52 by HUANG Scott) Mother Breast cancer Diabetes Carcinoma, lung Father Carcinoma, lung Family History: Reports: Cancer - breast cancer Paternal Family History: Family History (Last Reviewed 12/27/18 @ 13:52 by HUANG Scott) Mother Breast cancer Diabetes Carcinoma, lung Father Carcinoma, lung Family History: Reports: Cancer, Pulmonary Disease - Emphysema <Chavo Pedro - Last Filed: 09/01/19 17:16> - Family History Maternal Family History: Family History (Last Reviewed 12/27/18 @ 13:52 by HUANG Scott) Mother Breast cancer Diabetes Carcinoma, lung Father Carcinoma, lung Paternal Family History: Family History (Last Reviewed 12/27/18 @ 13:52 by HUANG Scott) Mother Breast cancer Diabetes Carcinoma, lung Father Carcinoma, lung <Edward Dill - Last Filed: 09/01/19 23:37> - Allergies and Home Meds Allergies/Adverse Reactions: Allergies rosuvastatin calcium [From Crestor] Allergy (Verified 09/01/19 10:35) Itching simvastatin Allergy (Verified 09/01/19 10:35) Itching Review of Systems General: Denies: Chills, Fever, Sweats Eyes: Denies: Visual changes - bilaterally, Diplopia ENT: Denies: Rhinorrhea, Sore throat Cardiovascular: Denies: Chest pain, Palpitations Respiratory: Denies: Dyspnea, Cough, Dyspnea on exertion Gastrointestinal: Reports: Abdominal pain, Nausea, Vomiting, Diarrhea. Denies: Melena, Hematochezia Genitourinary: Denies: Dysuria, Hematuria, Frequency Musculoskeletal: Denies: Back pain, Extremity Pain Skin: Denies: Rash, Wounds Neurological: Denies: Headache, Weakness, Numbness <Chavo Pedro - Last Filed: 09/01/19 17:16> Physical Exam Vital Signs/Narrative: Vital Signs Temp Pulse Resp BP Pulse Ox 09/01/19 11:37 97.0 F L 103 H 20 H 148/87 H 99 09/01/19 10:36 97.0 F L 103 H 20 H 148/87 H 99 Inital Vital Signs reviewed: Yes General: Well nourished, Well developed, No Acute Distress Head: Normocephalic, Atraumatic Eyes: Perrl, EOMI ENT: No rhinorrhea, Dry mucous membranes Neck: Supple, Nontender Cardiovascular: Regular rate, Regular rhythm, No murmurs Respiratory: No distress, CTA bilaterally, Chest nontender Abdomen: Soft, Nondistended, Normal bowel sounds, Tender Back: Nontender, Normal Inspection Extremities: Nontender, No edema Skin: Normal color, No rash Neurological: Alert, Oriented x3, Cranial nerves II-XII grossly intact, Normal Strength, Normal Sensation Psychological: Normal affect, Normal Mood <Chavo Pedro - Last Filed: 09/01/19 17:16> Diagnostic/Tx/Re-eval Impressions Abdomen/Pelvis CT 09/01/19 11:49 IMPRESSION: Thickening of the colon, consistent with colitis. Differential considerations are inflammatory, infectious and ischemic disease. Moderate aortoiliac atherosclerosis. Small nonobstructing right renal calculus. Electronically Signed: Jessica Tello MD at 15:27 EST Tel , Service support , 09/01/19 11:49 Abdomen/Pelvis W IV Cont ONLY [CT] Stat Laboratory Results 09/01/19 09/01/19 09/01/19 10:47 10:47 10:47 WBC 5.9 Cancelled Corrected WBC Cancelled RBC 3.96 L Cancelled Hgb 13.5 Cancelled Hct 40.9 Cancelled MCV 103.3 H Cancelled MCH 34.1 H Cancelled MCHC 33.0 Cancelled RDW Std Deviation 63.6 H Cancelled RDW Coeff of Jaleel 17.0 H Cancelled Plt Count 260 Cancelled MPV 9.5 Cancelled Immature Gran % (Auto) 0.300 Cancelled Neut % (Auto) 63.9 Cancelled Lymph % (Auto) 21.4 Cancelled [place] % (Auto) 11.2 H Cancelled Eos % (Auto) 2.7 Cancelled Baso % (Auto) 0.5 Cancelled Absolute Neuts (auto) 3.8 Cancelled Absolute Lymphs (auto) 1.26 Cancelled Total Counted Cancelled Neutrophils % (Manual) Cancelled Band Neutrophils % Cancelled Lymphocytes % (Manual) Cancelled Monocytes % (Manual) Cancelled Eosinophils % (Manual) Cancelled Basophils % (Manual) Cancelled Metamyelocytes % Cancelled Myelocytes % Cancelled Promyelocytes % Cancelled Blast Cells % Cancelled Plasma Cell % (Manual) Cancelled Other Cells % Cancelled Nucleated RBC % 0 Cancelled Nucleated RBCs/100 WBC Cancelled Differential Comment Cancelled Diff Path Review Cancelled Hypersegmented Neuts Cancelled Atypical Lymphocytes Cancelled Reactive Lymphocytes Cancelled Smudge Cells Cancelled Toxic Granulation Cancelled Toxic Vacuolation Cancelled Dohle Bodies Cancelled Umesh Rods Cancelled Platelet Estimate Cancelled Plt Morphology Comment Cancelled RBC Morphology Cancelled Polychromasia Cancelled Hypochromasia Cancelled Poikilocytosis Cancelled Basophilic Stippling Cancelled Anisocytosis Cancelled Microcytosis Cancelled Macrocytosis Cancelled Spherocytes Cancelled Sickle Cells Cancelled Target Cells Cancelled Tear Drop Cells Cancelled Ovalocytes Cancelled Stomatocytes Cancelled [place] Bodies Cancelled Cassandra Cells Cancelled Bite Cells Cancelled Crenated Cell Cancelled Acanthocytes (Spur) Cancelled Rouleaux Cancelled Schistocytes Cancelled Sodium 140 Potassium 3.6 Chloride 104 Carbon Dioxide 29.0 Anion Gap 7 BUN 21 H Creatinine 0.74 Estim Creat Clear Calc 41.33 Est GFR (MDRD) Af Amer 99 Est GFR (MDRD) Non-Af 81 BUN/Creatinine Ratio 28.5 H Glucose 141 H Calcium 9.2 Total Bilirubin AST ALT Alkaline Phosphatase Total Protein Albumin Globulin Albumin/Globulin Ratio Lipase Urine Color Urine Clarity Urine pH Ur Specific [place] Urine Protein Urine Glucose (UA) Urine Ketones Urine Occult Blood Urine Nitrite Urine Bilirubin Urine Urobilinogen Ur Leukocyte Esterase Urine RBC Urine WBC Ur Squamous Epith Cells Urine Bacteria Urine Mucus 09/01/19 09/01/19 10:47 11:35 WBC Corrected WBC RBC Hgb Hct MCV MCH MCHC RDW Std Deviation RDW Coeff of Jaleel Plt Count MPV Immature Gran % (Auto) Neut % (Auto) Lymph % (Auto) [place] % (Auto) Eos % (Auto) Baso % (Auto) Absolute Neuts (auto) Absolute Lymphs (auto) Total Counted Neutrophils % (Manual) Band Neutrophils % Lymphocytes % (Manual) Monocytes % (Manual) Eosinophils % (Manual) Basophils % (Manual) Metamyelocytes % Myelocytes % Promyelocytes % Blast Cells % Plasma Cell % (Manual) Other Cells % Nucleated RBC % Nucleated RBCs/100 WBC Differential Comment Diff Path Review Hypersegmented Neuts Atypical Lymphocytes Reactive Lymphocytes Smudge Cells Toxic Granulation Toxic Vacuolation Dohle Bodies Umesh Rods Platelet Estimate Plt Morphology Comment RBC Morphology Polychromasia Hypochromasia Poikilocytosis Basophilic Stippling Anisocytosis Microcytosis Macrocytosis Spherocytes Sickle Cells Target Cells Tear Drop Cells Ovalocytes Stomatocytes [place] Bodies [place] Cells Bite Cells Crenated Cell Acanthocytes (Spur) Rouleaux Schistocytes Sodium Cancelled Potassium Cancelled Chloride Cancelled Carbon Dioxide Cancelled Anion Gap Cancelled BUN Cancelled Creatinine Cancelled Estim Creat Clear Calc Cancelled Est GFR (MDRD) Af Amer Cancelled Est GFR (MDRD) Non-Af Cancelled BUN/Creatinine Ratio Cancelled Glucose Cancelled Calcium Cancelled Total Bilirubin Cancelled AST Cancelled ALT Cancelled Alkaline Phosphatase Cancelled Total Protein Cancelled Albumin Cancelled Globulin Cancelled Albumin/Globulin Ratio Cancelled Lipase Cancelled Urine Color Yellow Urine Clarity Sl. Cloudy Urine pH 6.0 Ur Specific [place] 1.020 Urine Protein Negative Urine Glucose (UA) Normal Urine Ketones 50 H Urine Occult Blood Negative Urine Nitrite Negative Urine Bilirubin 1 H Urine Urobilinogen 4 H Ur Leukocyte Esterase 25 H Urine RBC 0 SEEN Urine WBC 0-5 SEEN Ur Squamous Epith Cells 0-5 SEEN Urine Bacteria 3+ Urine Mucus 0 SEEN - Medical Decision Making Patient appears well nontoxic. Given her diarrhea as well as vomiting CT of the abdomen pelvis was done. CT shows evidence of a colitis. Lab work within normal limits other than some volume depletion with ketonuria. Patient was fluid resuscitated and given pain medication as well as antiemetics. For her lips which appear to be somewhat cracked with a gingivostomatitis lidocaine jelly was placed which did provide relief to the patient. No fever or white count at this time so I will not give antibiotics. I did speak with the hospitalist who is agreeable with admission for observation. Patient also agreeable and admitted in stable condition. <Chavo Pedro - Last Filed: 09/01/19 17:16> - Medical Decision Making Patient was seen with me. I did a [id number] examination with the patient. Patient presents with worsening pain in her mouth. Patient also admits to worsening abdominal pain. Patient was seen here twice this week. Patient states her abdominal pain has gotten worse. Patient states her mouth sores have gotten worse. Patient denies any fevers or chills. Vital signs are stable. Patient is afebrile. Patient is in no acute distress. Oral mucosa is pink and moist. There are aphthous ulcers noted. Neck is supple. Trachea is midline. There is no JVD. Heart was regular rate and rhythm. Lungs are clear and equal bilaterally. Abdomen is soft. There is mild diffuse tenderness. There is no rebound or guarding noted. CT scan of the abdomen and pelvis was obtained. There is evidence of colitis. Patient was given IV fluids. Patient was given analgesics. Case was discussed with the hospitalist. Patient will be admitted for observation. Patient understood and was agreeable with the plan. All questions were answered. <Edward Dill - Last Filed: 09/01/19 23:37> ED Disposition <Chavo Pedro - Last Filed: 09/01/19 17:16> <Edward Dill - Last Filed: 09/01/19 23:37> - Plan for ED Patient: Disposition: Acute Care [facility] Diagnosis: Gastroenteritis, Gingivostomatitis
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
[2019-09-01 18:00] LABS: Bedside Glucose 78 mg/dL (70-110)
[2019-09-01] MEDS: 0.9% Normal Saline 1,000 ML 75 ML IV (18:30)
[2019-09-01] MEDS: 0.9% Saline Lock 10 ML Syringe IV (18:30)
[2019-09-01] MEDS: Acetaminophen 325 MG Tablet 650 MG PO (18:45)
[2019-09-01] MEDS: oxyCODONE 5 MG Tablet PO (19:08)
[2019-09-01] MEDS: Pantoprazole Sodium 40 MG Tablet PO (22:06)
[2019-09-01] MEDS: Gabapentin 400 MG Capsule 800 MG PO (22:06)
[2019-09-01] MEDS: Zolpidem Tartrate 5 MG Tablet PO (22:06)
[2019-09-01] MEDS: BMX LIQUID 180 ML 10 ML PO (22:07)
[2019-09-01 22:46] LABS: Bedside Glucose 110 mg/dL (70-110)
[2019-09-02 02:30] VITALS: BP 148/81; PULSE 76; RESP 16; TEMP 36.6; O2SAT 92
[2019-09-02] MEDS: Acetaminophen 325 MG Tablet 650 MG PO ×2 (02:37→23:14)
[2019-09-02 06:06] LABS: Absolute Lymphocyte Count 1.14 X10^3/uL (0.83-4.51); Absolute Neutrophil Count 2.3 X10^3/uL (2.0-7.7); Basophil# 0.02 X10^3/uL; Basophil% 0.5 % (0-1); Eosinophil# 0.15 X10^3/uL; Eosinophils% 3.6 % (0-5); Hematocrit 33.9 % (37-47); Lymphocyte # 1.14 X10^3/ul (4.0); Lymphocyte % 27.5 % (19-41); Mean Corp Hgb Conc 32.4 g/dL (32-36); Mean Corpuscular Hgb 33.8 pg (27.0-32.0); Mean Corpuscular Volume 104.3 fL (81-99); Mean Platelet Vol. 9.3 fl (6.2-12.0); Monocyte# 0.51 X10^3/uL; Monocyte% 12.3 % (0-10); NRBC Flagged by Analyzer 0 % (0-5); Neutrophil # 2.32 X10^3/uL (2.7-7.7); Neutrophil % 55.9 % (47-70); Platelet Count 233 K/mm3 (150-450); RBC Distribution Width CV 16.8 % (11.6-14.6); RBC Distribution Width SD 63.9 fl (35.1-43.9); Red Blood Count 3.25 M/mm3 (4.2-5.4); White Blood Count 4.2 K/mm3 (4.4-11.0)
[2019-09-02 06:26] LABS: Anion Gap 7 (5-15); BUN 16 mg/dL (7-18); Calcium,Total 8.3 mg/dL (8.5-10.1); Chloride 110 mmol/L (98-107); Creatinine, Serum 0.57 mg/dL (0.55-1.02); EST Glomerular Filtration Rate 109 mL/min (>60); Est Glom Filt Rate - Afr Amer 132 mL/min (>60); Estimated Creatinine Clearance 41.33 ml/min; Glucose 114 mg/dL (74-106); Potassium 3.4 mmol/L (3.5-5.1); Sodium Level 143 mmol/L (136-145)
[2019-09-02] MEDS: oxyCODONE 5 MG Tablet PO ×3 (06:29→21:13)
[2019-09-02] MEDS: Gabapentin 400 MG Capsule 800 MG PO ×3 (06:29→21:14)
[2019-09-02] MEDS: BMX LIQUID 180 ML 10 ML PO ×2 (06:35→16:54)
[2019-09-02 06:56] LABS: Bedside Glucose 116 mg/dL (70-110)
[2019-09-02 08:30] VITALS: BP 148/73; PULSE 60; RESP 16; TEMP 36.7; O2SAT 93
[2019-09-02] MEDS: 0.9% Normal Saline 1,000 ML 75 ML IV ×2 (09:39→23:16)
[2019-09-02] MEDS: Lisinopril 20 MG Tablet PO (09:40)
[2019-09-02] MEDS: amLODIPine 10 MG Tablet PO (09:40)
[2019-09-02] MEDS: Pantoprazole Sodium 40 MG Tablet PO ×2 (09:40→21:51)
[2019-09-02 12:50] LABS: Bedside Glucose 90 mg/dL (70-110)
--- NOTE | 2019-09-02 13:20 | CASEMGMT ---
RN NISHA Face to Face with patient for initial transition planning/care coordination assessment. RN CM introduced self and role at [facility]. Patient lying in bed, alert and oriented. Patient willing to participate in assessment and is able to answer all questions appropriately. Care providers, pharmacy, and demographics verified. Patient wishes to discharge home, denies need for home health at this time. Patient states he has no further needs or concerns at this time. CM to follow for discharge planning needs that may arise. PCP: Noelle Specialists: none Preferred Pharmacy: [facility] Insurance: [employer]Z [employer] Prescription Benefit: yes Living Will/HPOA: sonRobles LNOK: son Living Arrangements: Patient lives alone in mobile home. 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 Patient denies HHC. Disposition Plan: Patient to discharge home with family support and follow-up plans in place. Belgica RODRIGUEZ, RN, CM
[2019-09-02] MEDS: Ascorbic Acid 500 MG Tablet 1000 MG PO (14:06)
[2019-09-02] MEDS: Acyclovir 200 MG Capsule 400 MG PO ×3 (14:06→21:51)
[2019-09-02] MEDS: metroNIDAZOLE 500 MG/100 ML BAG 100 MG IV ×2 (14:07→21:14)
[2019-09-02 14:16] VITALS: BP 136/60; PULSE 73; RESP 18; TEMP 37.7; O2SAT 96
--- NOTE | 2019-09-02 15:26 | PCM.HP.ID ---
Problem List (1) Gingivostomatitis Status: Acute Reason for Consult: colitis Consulted by: Dr. Champagne History of Present Illness: The patient is a 74 year old F with h/o DM, OA, presented yesterday with 4-5 days of mild fever, not feeling well, diarrhea, lower abd pain, mouth sores, and painful ulcerative nodules on both hands. No prior h/o colitis, mouth sores, HSV, cdiff. C/o pain/difficulty swallowing. Reports normal colonoscopy a year ago with Dr. Rodriguez. No blood in stool, no travel, no sick contacts. Still with some diarrhea. No fever here. Started on ceftriaxone/flagyl. Denies any dysuria or urinary changes. Full ROS performed and neg except as noted above. - Medical History Past Medical History (Chronic Problems): Chronic Problems (Last Reviewed 12/27/18 @ 13:52 by Luly Noriega, TANYARD WORKER-C) Nocturnal hypoxemia (Chronic) Hyperlipidemia (Chronic) Elevated blood pressure reading without diagnosis of hypertension (Chronic) Other [place] [facility] (current[facility] drug therapy (Chronic) Nonrheumatic aortic (valve) insufficiency (Chronic) Nonrheumatic tricuspid (valve) insufficiency (Chronic) Other secondary pulmonary hypertension (Chronic) Nonischemic cardiomyopathy (Chronic) Fatigue (Chronic) Chronic Klebsiella Urine Colonization (Chronic) Takotsubo cardiomyopathy (Chronic) 2013 25%, 2017-60% GI (gastrointestinal bleed) (Chronic) CAD (coronary artery disease) (Chronic) Mild Lumbar spinal stenosis (Chronic) Chiari malformation (Chronic) Insomnia (Chronic) GERD (gastroesophageal reflux disease) (Chronic) Osteoarthritis of left knee (Chronic) Fibromyalgia (Chronic) Depression (Chronic) Anxiety (Chronic) Chronic pain syndrome (Chronic) Sinusitis, chronic (Chronic) Diabetes mellitus type 2, diet-controlled (Chronic) History of total right hip replacement (Chronic) Hypertension (Chronic) chairi malformations/p posterior decompr (Chronic) Allergies/Adverse Reactions: Allergies rosuvastatin calcium [From Crestor] Allergy (Verified 09/01/19 10:35) Itching simvastatin Allergy (Verified 09/01/19 10:35) Itching Home Medications: Ambulatory Orders Medication Instructions Recorded Pantoprazole Sodium [Protonix] 40 mg PO BID 01/22/17 Metformin HCl [Metformin HCl ER] 1,000 mg PO DAILY 05/23/17 gabapentin 400 mg capsule 800 mg PO TID cap 10/11/17 sodium chloride 0.65 % nasal spray 2 spray INTRANASAL QHS ml 01/09/18 aerosol Oxycodone HCl/Acetaminophen 1 tab PO TID 05/07/18 [Percocet 5-325] ascorbic acid (vitamin C) 1,000 mg 1 g PO DAILY tab 10/22/18 tablet cholecalciferol (vitamin D3) 50 2,000 unit PO DAILY 10/22/18 mcg (2,000 unit) capsule magnesium oxide 400 mg (241.3 mg 400 mg PO DAILY tab 10/22/18 magnesium) tablet potassium chloride 10 mEq 10 meq PO DAILY 10/22/18 tablet,extended release vitamin E (dl, acetate) 1,000 unit 1,000 unit PO DAILY 10/22/18 capsule zolpidem 10 mg tablet 5 mg PO QHS tab 10/22/18 metFORMIN HCl [Glucophage] 1,500 mg PO QHS 12/10/18 Amlodipine/Benazepril [Lotrel 1 cap PO DAILY 12/13/18 10-20 MG Capsule] Magic Mouth Wash 10 ml PO 4X/DAY PRN PRN #300 ml 08/28/19 Ondansetron [Zofran Odt] 4 mg PO Q8H PRN PRN #10 tab 08/31/19 - Social History SMOKING STATUS:: Never smoker Vital Signs Temp Pulse Resp BP Pulse Ox 99.9 F H 73 18 136/60 H 96 09/02/19 14:16 09/02/19 14:16 09/02/19 14:16 09/02/19 14:16 09/02/19 14:16 Oxygen Delivery Method Room Air Weight: 69.4 kg Body Mass Index (BMI) 26.2 Finger Stick Blood Glucose 172 Microbiology Past 72 Hours 09/01/19 19:30 Enteric Bacteriology - Final Stool 09/01/19 19:30 C. difficile DNA Amplification - Final Stool Laboratory Tests Past 24 Hrs 09/02/19 09/02/19 05:48 05:48 WBC 4.2 L RBC 3.25 L Hgb 11.0 L Hct 33.9 L MCV 104.3 H MCH 33.8 H MCHC 32.4 RDW Std Deviation 63.9 H RDW Coeff of Jaleel 16.8 H Plt Count 233 MPV 9.3 Immature Gran % (Auto) 0.200 Neut % (Auto) 55.9 Lymph % (Auto) 27.5 [place] % (Auto) 12.3 H Eos % (Auto) 3.6 Baso % (Auto) 0.5 Absolute Neuts (auto) 2.3 Absolute Lymphs (auto) 1.14 Nucleated RBC % 0 Sodium 143 Potassium 3.4 L Chloride 110 H Carbon Dioxide 26.0 Anion Gap 7 BUN 16 Creatinine 0.57 Estim Creat Clear Calc 41.33 Est GFR (MDRD) Af Amer 132 Est GFR (MDRD) Non-Af 109 BUN/Creatinine Ratio 28.0 H Glucose 114 H Calcium 8.3 L - Other Studies Radiology: [] reviewed Other Studies: [] Route of nutrition/ use of supplements: [] Nutritional Intake: [] IV Site: [] Wong Catheter: [] - Physical Exam General: Alert, Oriented x3, Cooperative, No apparent distress HEENT: Atraumatic, PERRLA, EOMI, - - painful ulcers in mouth Neck: Supple, No Nodes Lungs: Clear to auscultation, Normal air movement Cardiovascular: Regular rate, Regular Rhythm, No murmurs Abdomen: Soft, Non-Distended, - - minimal lower abd tenderness Extremities: No edema Skin: - - L 1st toe with distal wound with some dried blood. L 2nd finger PIP with dark dry necrotic nodule. Small nodules on L 4th and R 1st fingers. Neurological: Cranial nerves II-XII grossly intact - Assessment/Plan Antibiotics: [] Assessment/Plan: [] Active and Suspected Problems (Last Reviewed 12/27/18 @ 13:52 by Luly Noriega, ESTEFANÍA-C) Gastroenteritis (Acute) Gingivostomatitis (Acute) Multiple complaints, and it is not clear if they are related. Lesions are not consistent with hand foot and mouth. - Having lower abd pain, colitis seen on CT, some n/v/d. Reports normal colonoscopy a year ago here. Cdiff and stool pcr was neg. - oral ulcers, no prior h/o HSV or other ulcers. Denies any genital ulcers. Given odynophagia, concern for esophageal involvement. On acyclovir, Hsv pcr pending. - new finger nodules/necrosis. Will order xray of L hand. On ceftriaxone and flagyl. No evidence of uti. Ok to d/c contact isolation as long as she is not incontinent of stool. If she is not improving, would recommend surgical eval for possible upper and lower endoscopy with biopsies. Will follow, thank you.
--- NOTE | 2019-09-02 15:55 | RAD_ITS ---
STUDY: X-RAY - LEFT HAND REASON FOR EXAM: Female, 74 years old. Ulceration to second digit. TECHNIQUE: Three view(s) of the hand. COMPARISON: None. FINDINGS: Bones: Generalized osteopenia. Joints: Osteoarthrosis. Soft tissues: The soft tissues are unremarkable. Foreign body: None RAD/Hand Min 3 Views IMPRESSION: Osteopenia with osteoarthritic changes. No acute finding. Electronically Signed: Heraclio Meredith MD at 16:07 EST , Service support ,
--- NOTE | 2019-09-02 16:11 | PCM.PN.HOSP ---
Patient Problems: Active and Suspected Problems (Last Reviewed 12/27/18 @ 13:52 by Luly Noriega NP-Radha) Gastroenteritis (Acute) Gingivostomatitis (Acute) Reason for Visit: Nausea vomiting and diarrhea: Improving. Patient has oral ulcer and multiple nodules on hand and toe. Complain of abdominal pain. Vitals/I&O's: Vital Signs Temp Pulse Resp BP Pulse Ox 99.9 F H 73 18 136/60 H 96 09/02/19 14:16 09/02/19 14:16 09/02/19 14:16 09/02/19 14:16 09/02/19 14:16 Oxygen Delivery Method Room Air Weight: 153 lb 0.002 oz Body Mass Index (BMI) 26.2 Finger Stick Blood Glucose 172 Intake and Output for Last 24 Hours 08/31/19 09/01/19 09/02/19 23:59 23:59 23:59 Intake Total 1000 / 1300 2617.50 / 2617.50 Output Total 200 / 200 Balance 1000 / 1300 2417.50 / 2417.50 General: Alert, Oriented x3, Cooperative HEENT: Atraumatic, PERRLA, EOMI, Normocephalic Oral: Dry Mucosa, - - Redness of the floor of mouth and dry superficial ulceration of lips, crusted. Neck: Supple, No JVD, Negative Carotid Bruits Lungs: Clear to auscultation, No rhonchi, No wheeze, No rales, Diminished Cardiovascular: Regular rate, Regular Rhythm, Normal S1, Normal S2, No murmurs Abdomen: Bowel Sounds Present, Soft, Tender - Tenderness of upper abdomen Extremities: No edema, Capillary Refill Less than 3 Seconds Skin: Ulcer/ Wound - Ulcer of mouth. Nodules on the finger., Rash Present - Patient is To bilateral upper arm. Left related to nodule. Fingers. Musculoskeletal: No Tenderness to Palpation of Joints or Extremities, Arthritic Changes Neurological: Cranial nerves II-XII grossly intact Psych/Mental Status: Normal Affect, Appropriate Microbiology Past 72 Hours 09/01/19 19:30 Stool Enteric Bacteriology - Final 09/01/19 19:30 Stool C. difficile DNA Amplification - Final Laboratory Results 09/01/19 17:40: POC Glucose 78 09/01/19 21:57: POC Glucose 110 09/02/19 05:48: Sodium 143, Potassium 3.4 L, Chloride 110 H, Carbon Dioxide 26.0, Anion Gap 7, BUN 16, Creatinine 0.57, Estim Creat Clear Calc 41.33, Est GFR (MDRD) Af Amer 132, Est GFR (MDRD) Non-Af 109, BUN/Creatinine Ratio 28.0 H, Glucose 114 H, Calcium 8.3 L 09/02/19 05:48: WBC 4.2 L, RBC 3.25 L, Hgb 11.0 L, Hct 33.9 L, MCV 104.3 H, MCH 33.8 H, MCHC 32.4, RDW Std Deviation 63.9 H, RDW Coeff of Jaleel 16.8 H, Plt Count 233, MPV 9.3, Immature Gran % (Auto) 0.200, Neut % (Auto) 55.9, Lymph % (Auto) 27.5, [place] % (Auto) 12.3 H, Eos % (Auto) 3.6, Baso % (Auto) 0.5, Absolute Neuts (auto) 2.3, Absolute Lymphs (auto) 1.14, Nucleated RBC % 0 09/02/19 06:31: POC Glucose 116 H 09/02/19 12:07: POC Glucose 90 Current Medications Acetaminophen (Tylenol) 650 mg PO Q6H PRN PRN PRN Reason: Pain Score 1-3/Temp > 100.7 F Last Admin: 09/02/19 02:37 Dose: 650 mg Documented by: Acyclovir (Zovirax) 400 mg PO 5X/DAY [facility] Last Admin: 09/02/19 14:06 Dose: 400 mg Documented by: Amlodipine Besylate (Norvasc) 10 mg PO DAILY [facility] Last Admin: 09/02/19 09:40 Dose: 10 mg Documented by: Ascorbic Acid (Vitamin C) 1,000 mg PO DAILY [facility] Last Admin: 09/02/19 14:06 Dose: 1,000 mg Documented by: Cholecalciferol (Vitamin D) 2,000 unit PO DAILY [facility] Gabapentin (Neurontin) 800 mg PO TID [facility] Last Admin: 09/02/19 14:06 Dose: 800 mg Documented by: Glucagon () 1 mg IM .X1 PRN PRN Reason: Hypoglycemia Sodium Chloride () 1,000 mls @ 75 mls/hr IV .[id number] [facility] Last Infusion: 09/02/19 15:07 Dose: 75 mls/hr Documented by: Dextrose (Dextrose 10%-Water) 250 mls @ 999 mls/hr IV .Q16M PRN; Protocol PRN Reason: HYPOGLYCEMIA Ceftriaxone Sodium 2 gm/ (Sodium Chloride) 50 mls @ 100 mls/hr IV Q24 [facility] Last Infusion: 09/02/19 13:20 Dose: Infused Documented by: Metronidazole (Flagyl) 500 mg in 100 mls @ 100 mls/hr IV Q8 [facility] Last Infusion: 09/02/19 15:07 Dose: Infused Documented by: Insulin Human Lispro (Humalog Kwikpen (Bkc)) 0 unit SC ACHS [facility]; Protocol Last Admin: 09/02/19 12:08 Dose: Not Given Documented by: Lidocaine HCl (Xylocaine Jelly) 0 tube TOPICAL 4X/DAY PRN PRN; Protocol PRN Reason: Mouth pain Last Admin: 09/02/19 12:10 Dose: 1 tube Documented by: Lidocaine/Diphenhydr/Alum/Mg/Simeth () 10 ml PO 4X/DAY PRN PRN PRN Reason: MOUTH IRRITATION Last Admin: 09/02/19 06:35 Dose: 10 ml Documented by: Lisinopril (Zestril) 20 mg PO DAILY [facility] Last Admin: 09/02/19 09:40 Dose: 20 mg Documented by: Magnesium Oxide (Mag-Ox 400) 400 mg PO DAILY [facility] Ondansetron HCl (Zofran Odt) 4 mg PO Q8H PRN PRN PRN Reason: NAUSEA Oxycodone HCl (Oxyir) 5 mg PO TID [facility] Last Admin: 09/02/19 14:06 Dose: 5 mg Documented by: Pantoprazole Sodium (Protonix) 40 mg PO BID [facility] Last Admin: 09/02/19 09:40 Dose: 40 mg Documented by: Potassium Chloride (K-Dur) 20 meq PO DAILY [facility] Last Admin: 09/02/19 14:05 Dose: 20 meq Documented by: Sodium Chloride () 10 - 40 ml IV UD PRN PRN Reason: SALINE FLUSH Last Admin: 09/01/19 18:30 Dose: 10 ml Documented by: Sodium Chloride ([place] Nasal [place]) 2 spray NASAL QHS [facility] Zolpidem Tartrate (Ambien (Generic)) 5 mg PO QHS [facility] Last Admin: 09/01/19 22:06 Dose: 5 mg Documented by: STROKE Vital Signs/Narrative: Vital Signs Temp Pulse Resp BP Pulse Ox 09/02/19 14:16 99.9 F H 73 18 136/60 H 96 Medical Necessity - Tobacco Use Smoking Status: Never smoker Assessment/Plan All Active Problems (Last Reviewed 12/27/18 @ 13:52 by Luly Noriega, [employer]-C) Gastroenteritis (Acute) Gingivostomatitis (Acute) UTI (urinary tract infection) (Acute) Shortness of breath (Acute) Bronchitis (Acute) Hx pulmonary embolism (Resolved) HCAP (healthcare-associated pneumonia) (Resolved) Cervical post-laminectomy syndrome (Resolved) Pulmonary embolism, bilateral (Resolved) Shingles (Resolved) This 74-year-old female was admitted with nausea, vomiting and diarrhea and abdominal pain. Patient also has oral ulcer for last 2 weeks. She has nodules in the finger and toe. 1. Acute transverse colitis: Patient is being admitted on [facility] floor. Patient denies any recent antibiotic in July 2019. Patient is on lidocaine gel on the lips and Magic mouthwash. Stool for C. difficile and enteric bacteriology panel are negative. CT abdomen shows transverse colitis. ID has been consulted. Started on IV ceftriaxone and Flagyl. ID agrees with ceftriaxone and Flagyl and if no improvement surgical consult for possible upper and lower endoscopy. As per ID, colonoscopy was normal a year ago. 2. Oral ulceration along with nodules in finger/subcutaneous nodule: It seems patient has possible herpes simplex infection or a staph infection. HSV PCR negative. Left hand x-ray ordered. 3. . DM 2 Metformin on hold. On sliding scale insulin with glucose checks. 4 CAD/HTN -Blood pressures and vital signs are stable -Continue with amlodipine/benazepril Chronic pain syndrome/Chiari malformation -Continue with Percocet and gabapentin -Her symptoms are stable with her chronic management 5. GERD -Stable -Continue with Protonix DVT: SCDs Code Visit Inpatient E&M: 16412 [facility] Hosp L3
[2019-09-02] MEDS: Enoxaparin 40 MG/0.4 ML Syringe SC (16:52)
[2019-09-02 17:01] LABS: Bedside Glucose 79 mg/dL (70-110)
[2019-09-02 21:12] VITALS: BP 148/76; PULSE 74; RESP 18; TEMP 37.7; O2SAT 94
[2019-09-02] MEDS: Zolpidem Tartrate 5 MG Tablet PO (21:13)
[2019-09-02] MEDS: Sodium Chloride 0.65% 1 SPRAY SPRAY.BTL 2 SPRAY NASAL (21:17)
[2019-09-02 21:50] LABS: Bedside Glucose 96 mg/dL (70-110)
[2019-09-03 05:00] VITALS: BP 154/63; PULSE 63; RESP 18; TEMP 36.9; O2SAT 95
[2019-09-03] MEDS: oxyCODONE 5 MG Tablet PO ×3 (05:53→21:37)
[2019-09-03] MEDS: metroNIDAZOLE 500 MG/100 ML BAG 100 MG IV ×3 (05:53→21:38)
[2019-09-03] MEDS: Gabapentin 400 MG Capsule 800 MG PO ×3 (05:54→21:37)
[2019-09-03] MEDS: Acyclovir 200 MG Capsule 400 MG PO ×5 (05:54→21:36)
[2019-09-03 06:51] LABS: Bedside Glucose 99 mg/dL (70-110)
[2019-09-03 06:54] LABS: Absolute Neutrophil Count 2.1 X10^3/uL (2.0-7.7); Basophil# 0.02 X10^3/uL; Basophil% 0.5 % (0-1); Eosinophil# 0.09 X10^3/uL; Eosinophils% 2.2 % (0-5); Hematocrit 34.4 % (37-47); Hemoglobin 11.3 g/dL (12.0-15.0); Lymphocyte % 31.3 % (19-41); Mean Corp Hgb Conc 32.8 g/dL (32-36); Mean Corpuscular Hgb 33.7 pg (27.0-32.0); Mean Corpuscular Volume 102.7 fL (81-99); Mean Platelet Vol. 9.4 fl (6.2-12.0); Monocyte# 0.58 X10^3/uL; NRBC Flagged by Analyzer 0 % (0-5); Neutrophil # 2.14 X10^3/uL (2.7-7.7); Neutrophil % 51.5 % (47-70); Platelet Count 259 K/mm3 (150-450); RBC Distribution Width CV 17.1 % (11.6-14.6); RBC Distribution Width SD 63.7 fl (35.1-43.9); Red Blood Count 3.35 M/mm3 (4.2-5.4); White Blood Count 4.2 K/mm3 (4.4-11.0)
[2019-09-03 07:08] LABS: AST(SGOT) 15 U/L (15-37); Alanine Aminotransfer ALT/SGPT 20 U/L (13-56); Albumin, Serum 2.9 g/dL (3.2-5.0); Alkaline Phosphatase 52 U/L (45-117); Anion Gap 6 (5-15); BUN 7 mg/dL (7-18); BUN/Creat Ratio 11.4 RATIO (10-20); Calcium,Total 7.9 mg/dL (8.5-10.1); Chloride 109 mmol/L (98-107); Creatinine, Serum 0.61 mg/dL (0.55-1.02); EST Glomerular Filtration Rate 101 mL/min (>60); Est Glom Filt Rate - Afr Amer 122 mL/min (>60); Estimated Creatinine Clearance 41.33 ml/min; Globulin 2.8 g/dL (2.2-4.2); Glucose 107 mg/dL (74-106); Potassium 3.2 mmol/L (3.5-5.1); Protein, Total 5.7 g/dL (6.4-8.2); Sodium Level 144 mmol/L (136-145)
[2019-09-03 08:34] VITALS: BP 136/76; PULSE 68; RESP 18; TEMP 37; O2SAT 94
--- NOTE | 2019-09-03 10:18 | PN_ITS ---
Patient Problems: Active and Suspected Problems (Last Reviewed 12/27/18 @ 13:52 by HUANG Scott) Gastroenteritis (Acute) Gingivostomatitis (Acute) Reason for Visit: Multiple oral ulcers, transverse colitis and the skin nodules. Objective: No fever or chills. No hypoxia. Overall oral ulcers and loose crest is improving. on exam General: Alert, Oriented x3, Cooperative HEENT: Atraumatic, PERRLA, EOMI, Normocephalic Oral: Dry Mucosa, Ulcer of mouth. Superficial ulceration over the floor of mouth and bilateral posterior lateral pharyngeal wall has slightly improved. Upper and lower lips ulcers are crusted Neck: Supple, No JVD, Negative Carotid Bruits Lungs: Clear to auscultation, No rhonchi, No wheeze, No rales, Diminished Cardiovascular: Regular rate, Regular Rhythm, Normal S1, Normal S2, No murmurs Abdomen: Bowel Sounds Present, Soft, Tenderness of upper and mid abdomen. Extremities: No edema, Capillary Refill Less than 3 Seconds Skin: Ulcer/ Wound Rash Present - Patient is bilateral upper arm. right toe nodule and Left index finger subcutneous nodule, black/greyish color. Musculoskeletal: No Tenderness to Palpation of Joints or Extremities, Arthritic Changes Neurological: Cranial nerves II-XII grossly intact Psych/Mental Status: Normal Affect, Appropriate Vitals/I&O's: Vital Signs Temp Pulse Resp BP Pulse Ox 98.6 F 68 18 136/76 H 94 09/03/19 08:34 09/03/19 08:34 09/03/19 08:34 09/03/19 08:34 09/03/19 08:34 Oxygen Delivery Method Room Air Weight: 153 lb 0.002 oz Body Mass Index (BMI) 26.2 Finger Stick Blood Glucose 172 Intake and Output for Last 24 Hours 09/01/19 09/02/19 09/03/19 23:59 23:59 23:59 Intake Total 1000 / 1300 3853.75 / 4153.75 1046.25 / 1046.25 Output Total 200 / 850 1050 / 1050 Balance 1000 / 1300 3653.75 / 3303.75 -3.75 / -3.75 Microbiology Past 72 Hours 09/01/19 19:30 Stool Enteric Bacteriology - Final 09/01/19 19:30 Stool C. difficile DNA Amplification - Final Laboratory Results 09/02/19 12:07: POC Glucose 90 09/02/19 16:50: POC Glucose 79 09/02/19 21:22: POC Glucose 96 09/03/19 06:20: WBC 4.2 L, RBC 3.35 L, Hgb 11.3 L, Hct 34.4 L, MCV 102.7 H, MCH 33.7 H, MCHC 32.8, RDW Std Deviation 63.7 H, RDW Coeff of Jaleel 17.1 H, Plt Count 259, MPV 9.4, Immature Gran % (Auto) 0.500, Neut % (Auto) 51.5, Lymph % (Auto) 31.3, [place] % (Auto) 14.0 H, Eos % (Auto) 2.2, Baso % (Auto) 0.5, Absolute Neuts (auto) 2.1, Absolute Lymphs (auto) 1.30, Nucleated RBC % 0 09/03/19 06:20: Sodium 144, Potassium 3.2 L, Chloride 109 H, Carbon Dioxide 29.0, Anion Gap 6, BUN 7, Creatinine 0.61, Estim Creat Clear Calc 41.33, Est GFR (MDRD) Af Amer 122, Est GFR (MDRD) Non-Af 101, BUN/Creatinine Ratio 11.4, Glucose 107 H, Calcium 7.9 L, Total Bilirubin 0.30, AST 15, ALT 20, Alkaline Phosphatase 52, Total Protein 5.7 L, Albumin 2.9 L, Globulin 2.8, Albumin/Globul in Ratio 1.0 09/03/19 06:40: POC Glucose 99 Current Medications Acetaminophen (Tylenol) 650 mg PO Q6H PRN PRN PRN Reason: Pain Score 1-3/Temp > 100.7 F Last Admin: 09/02/19 23:14 Dose: 650 mg Documented by: Acyclovir (Zovirax) 400 mg PO 5X/DAY [facility] Last Admin: 09/03/19 05:54 Dose: 400 mg Documented by: Amlodipine Besylate (Norvasc) 10 mg PO DAILY [facility] Last Admin: 09/02/19 09:40 Dose: 10 mg Documented by: Ascorbic Acid (Vitamin C) 1,000 mg PO DAILY [facility] Last Admin: 09/02/19 14:06 Dose: 1,000 mg Documented by: Cholecalciferol (Vitamin D) 2,000 unit PO DAILY [facility] Enoxaparin Sodium (Lovenox) 40 mg SC DAILY [facility] Last Admin: 09/02/19 16:52 Dose: 40 mg Documented by: Gabapentin (Neurontin) 800 mg PO TID [facility] Last Admin: 09/03/19 05:54 Dose: 800 mg Documented by: Glucagon () 1 mg IM .X1 PRN PRN Reason: Hypoglycemia Sodium Chloride () 1,000 mls @ 75 mls/hr IV .[id number] [facility] Last Infusion: 09/03/19 05:53 Dose: 0 mls/hr Documented by: Dextrose (Dextrose 10%-Water) 250 mls @ 999 mls/hr IV .Q16M PRN; Protocol PRN Reason: HYPOGLYCEMIA Ceftriaxone Sodium 2 gm/ (Sodium Chloride) 50 mls @ 100 mls/hr IV Q24 [facility] Last Infusion: 09/02/19 13:20 Dose: Infused Documented by: Metronidazole (Flagyl) 500 mg in 100 mls @ 100 mls/hr IV Q8 [facility] Last Infusion: 09/03/19 06:53 Dose: Infused Documented by: Insulin Human Lispro (Humalog Kwikpen (Bkc)) 0 unit SC ACHS [facility]; Protocol Last Admin: 09/03/19 06:46 Dose: Not Given Documented by: Lidocaine HCl (Xylocaine Jelly) 0 tube TOPICAL 4X/DAY PRN PRN; Protocol PRN Reason: Mouth pain Last Admin: 09/02/19 23:14 Dose: 1 tube Documented by: Lidocaine/Diphenhydr/Alum/Mg/Simeth () 10 ml PO 4X/DAY PRN PRN PRN Reason: MOUTH IRRITATION Last Admin: 09/02/19 16:54 Dose: 10 ml Documented by: Lisinopril (Zestril) 20 mg PO DAILY [facility] Last Admin: 09/02/19 09:40 Dose: 20 mg Documented by: Magnesium Oxide (Mag-Ox 400) 400 mg PO DAILY [facility] Ondansetron HCl (Zofran Odt) 4 mg PO Q8H PRN PRN PRN Reason: NAUSEA Oxycodone HCl (Oxyir) 5 mg PO TID [facility] Last Admin: 09/03/19 05:53 Dose: 5 mg Documented by: Pantoprazole Sodium (Protonix) 40 mg PO BID [facility] Last Admin: 09/02/19 21:51 Dose: 40 mg Documented by: Potassium Chloride (K-Dur) 20 meq PO DAILY [facility] Last Admin: 09/02/19 14:05 Dose: 20 meq Documented by: Sodium Chloride () 10 - 40 ml IV UD PRN PRN Reason: SALINE FLUSH Last Admin: 09/01/19 18:30 Dose: 10 ml Documented by: Sodium Chloride ([place] Nasal [place]) 2 spray NASAL QHS [facility] Last Admin: 09/02/19 21:17 Dose: 2 spray Documented by: Zolpidem Tartrate (Ambien (Generic)) 5 mg PO QHS [facility] Last Admin: 09/02/19 21:13 Dose: 5 mg Documented by: STROKE Vital Signs/Narrative: Vital Signs Temp Pulse Resp BP Pulse Ox 09/03/19 08:34 98.6 F 68 18 136/76 H 94 Medical Necessity - Tobacco Use Smoking Status: Never smoker Assessment/Plan All Active Problems (Last Reviewed 12/27/18 @ 13:52 by Luly Noriega, ESTEFANÍA-C) Gastroenteritis (Acute) Gingivostomatitis (Acute) UTI (urinary tract infection) (Acute) Shortness of breath (Acute) Bronchitis (Acute) Hx pulmonary embolism (Resolved) HCAP (healthcare-associated pneumonia) (Resolved) Cervical post-laminectomy syndrome (Resolved) Pulmonary embolism, bilateral (Resolved) Shingles (Resolved) This 74-year-old female was admitted with nausea, vomiting and diarrhea and abdominal pain. Patient also has oral ulcer for last 2 weeks. She has nodules in the finger and toe. 1. Acute transverse colitis: Patient is being admitted on [facility] floor. Patient denies any recent antibiotic in July 2019. Patient is on lidocaine gel on the lips and Magic mouthwash. Stool for C. difficile and enteric bacteriology panel are negative. CT abdomen shows transverse colitis. ID has been consulted. Started on IV ceftriaxone and Flagyl. ID agrees with ceftriaxone and Flagyl and if no improvement surgical consult for possible upper and lower endoscopy. As per ID, colonoscopy was normal a year ago. 09/03: Patient still has abdominal pain but no fever or chills. Mild hypokalemia: Potassium being replaced. 2. Oral ulceration along with nodules in finger/subcutaneous nodule: It seems patient has possible herpes simplex infection or a staph infection. HSV PCR negative. Left hand x-ray ordered. 09/03: Oral ulceration and pharyngeal rash has improved. Patient denies genital ulceration. There is possibility patient might have a small vessel vasculitis like [place] disease but patient does not complain of blurry vision or eye soreness. 3. . DM 2 Metformin on hold. On sliding scale insulin with glucose checks. 4 CAD/HTN -Blood pressures and vital signs are stable -Continue with amlodipine/benazepril Chronic pain syndrome/Chiari malformation -Continue with Percocet and gabapentin -Her symptoms are stable with her chronic management 5. GERD -Stable -Continue with Protonix DVT: SCDs Clinical Impression(s) from Imaging Studies Abdomen/Pelvis CT 09/01/19 11:49 IMPRESSION: Thickening of the colon, consistent with colitis. Differential considerations are inflammatory, infectious and ischemic disease. Moderate aortoiliac atherosclerosis. Small nonobstructing right renal calculus. Electronically Signed: Jessica Tello MD at 15:27 EST Tel , Service support , Hand X-Ray 09/02/19 15:55 IMPRESSION: Osteopenia with osteoarthritic changes. No acute finding. Code Visit Inpatient E&M: 55222 Subs Hosp L3
[2019-09-03] MEDS: Ascorbic Acid 500 MG Tablet 1000 MG PO (10:37)
[2019-09-03] MEDS: Lisinopril 20 MG Tablet PO (10:37)
[2019-09-03] MEDS: Magnesium Oxide 400 MG Tablet PO (10:37)
[2019-09-03] MEDS: Pantoprazole Sodium 40 MG Tablet PO ×2 (10:37→21:43)
[2019-09-03] MEDS: Enoxaparin 40 MG/0.4 ML Syringe SC (10:38)
[2019-09-03 11:35] LABS: Bedside Glucose 122 mg/dL (70-110)
[2019-09-03] MEDS: amLODIPine 10 MG Tablet PO (11:56)
[2019-09-03] MEDS: 0.9% Normal Saline 1,000 ML 75 ML IV (13:11)
[2019-09-03 15:12] VITALS: BP 145/65; PULSE 68; RESP 18; TEMP 36.3; O2SAT 98
[2019-09-03 16:20] LABS: Bedside Glucose 99 mg/dL (70-110)
[2019-09-03 20:34] VITALS: BP 150/74; PULSE 72; RESP 18; TEMP 37; O2SAT 97
[2019-09-03] MEDS: Zolpidem Tartrate 5 MG Tablet PO (21:36)
[2019-09-03] MEDS: Sodium Chloride 0.65% 1 SPRAY SPRAY.BTL 2 SPRAY NASAL (21:37)
[2019-09-03 21:56] LABS: Bedside Glucose 104 mg/dL (70-110)
[2019-09-04] MEDS: 0.9% Normal Saline 1,000 ML 75 ML IV ×2 (03:08→18:59)
[2019-09-04 03:12] VITALS: BP 151/82; PULSE 82; RESP 18; TEMP 37; O2SAT 96
[2019-09-04] MEDS: Acetaminophen 325 MG Tablet 650 MG PO (03:15)
[2019-09-04] MEDS: Gabapentin 400 MG Capsule 800 MG PO ×2 (06:05→13:14)
[2019-09-04] MEDS: Acyclovir 200 MG Capsule 400 MG PO ×5 (06:06→22:11)
[2019-09-04] MEDS: oxyCODONE 5 MG Tablet PO ×3 (06:06→18:59)
[2019-09-04] MEDS: metroNIDAZOLE 500 MG/100 ML BAG 100 MG IV ×3 (06:11→22:16)
[2019-09-04 06:40] LABS: Bedside Glucose 108 mg/dL (70-110)
[2019-09-04 07:00] LABS: Absolute Lymphocyte Count 1.11 X10^3/uL (0.83-4.51); Absolute Neutrophil Count 3.5 X10^3/uL (2.0-7.7); Basophil# 0.03 X10^3/uL; Basophil% 0.6 % (0-1); Eosinophils% 1.8 % (0-5); Hematocrit 33.2 % (37-47); Lymphocyte # 1.11 X10^3/ul (4.0); Lymphocyte % 20.4 % (19-41); Mean Corp Hgb Conc 33.1 g/dL (32-36); Mean Corpuscular Hgb 33.5 pg (27.0-32.0); Mean Corpuscular Volume 101.2 fL (81-99); Mean Platelet Vol. 9.4 fl (6.2-12.0); Monocyte# 0.74 X10^3/uL; Monocyte% 13.6 % (0-10); NRBC Flagged by Analyzer 0 % (0-5); Neutrophil # 3.45 X10^3/uL (2.7-7.7); Neutrophil % 63.2 % (47-70); Platelet Count 246 K/mm3 (150-450); RBC Distribution Width CV 16.7 % (11.6-14.6); RBC Distribution Width SD 61.6 fl (35.1-43.9); Red Blood Count 3.28 M/mm3 (4.2-5.4); White Blood Count 5.5 K/mm3 (4.4-11.0)
[2019-09-04 07:17] LABS: Anion Gap 7 (5-15); BUN 4 mg/dL (7-18); Calcium,Total 8.3 mg/dL (8.5-10.1); Chloride 109 mmol/L (98-107); Creatinine, Serum 0.57 mg/dL (0.55-1.02); EST Glomerular Filtration Rate 109 mL/min (>60); Est Glom Filt Rate - Afr Amer 132 mL/min (>60); Estimated Creatinine Clearance 41.33 ml/min; Glucose 109 mg/dL (74-106); Potassium 3.1 mmol/L (3.5-5.1); Sodium Level 143 mmol/L (136-145)
[2019-09-04] MEDS: amLODIPine 10 MG Tablet PO (09:10)
[2019-09-04] MEDS: Lisinopril 20 MG Tablet PO (09:10)
[2019-09-04] MEDS: Ascorbic Acid 500 MG Tablet 1000 MG PO (09:10)
[2019-09-04] MEDS: Magnesium Oxide 400 MG Tablet PO (09:10)
[2019-09-04] MEDS: Pantoprazole Sodium 40 MG Tablet PO ×2 (09:10→22:11)
[2019-09-04 09:12] VITALS: BP 149/76; PULSE 73; RESP 18; TEMP 37.1; O2SAT 98
[2019-09-04] MEDS: Enoxaparin 40 MG/0.4 ML Syringe SC (11:29)
[2019-09-04 11:36] LABS: Bedside Glucose 103 mg/dL (70-110)
--- NOTE | 2019-09-04 14:33 | PN_ITS ---
Patient Problems: Active and Suspected Problems (Last Reviewed 12/27/18 @ 13:52 by HUANG Scott) Gastroenteritis (Acute) Gingivostomatitis (Acute) Reason for Visit: Patient has diarrhea, liquid watery type. Still has abdominal pain. Oral ULCERS are cursted. Vitals/I&O's: Vital Signs Temp Pulse Resp BP Pulse Ox 98.8 F 73 18 149/76 H 98 09/04/19 09:12 09/04/19 09:12 09/04/19 09:12 09/04/19 09:12 09/04/19 09:12 Oxygen Delivery Method Room Air Weight: 153 lb 0.002 oz Body Mass Index (BMI) 26.2 Finger Stick Blood Glucose 172 Intake and Output for Last 24 Hours 09/02/19 09/03/19 09/04/19 23:59 23:59 23:59 Intake Total 3853.75 / 4153.75 3481.25 / 3881.25 2880 / 2880 Output Total 200 / 850 1050 / 1050 850 / 850 Balance 3653.75 / 3303.75 2431.25 / 2831.25 2029 / 2030 General: Alert, Oriented x3, Cooperative HEENT: Atraumatic, PERRLA, EOMI, Normocephalic Neck: Supple, No JVD, Negative Carotid Bruits Lungs: Clear to auscultation, No rhonchi, No wheeze, No rales, Diminished Cardiovascular: Regular rate, Regular Rhythm, Normal S1, Normal S2, No murmurs Abdomen: Bowel Sounds Present, Soft, Non-Distended, Tender - Tenderness in upper abdomen Extremities: No edema, Capillary Refill Less than 3 Seconds Skin: Ulcer/ Wound - Oral ulcer. Superficial ulceration of floor of mouth Musculoskeletal: No Tenderness to Palpation of Joints or Extremities Neurological: Cranial nerves II-XII grossly intact, Neuro grossly intact Psych/Mental Status: Normal Affect, Appropriate Microbiology Past 72 Hours 09/01/19 19:30 Stool Enteric Bacteriology - Final 09/01/19 19:30 Stool C. difficile DNA Amplification - Final Laboratory Results 09/03/19 16:15: POC Glucose 99 09/03/19 21:35: POC Glucose 104 09/04/19 06:24: POC Glucose 108 09/04/19 06:45: WBC 5.5, RBC 3.28 L, Hgb 11.0 L, Hct 33.2 L, MCV 101.2 H, MCH 33.5 H, MCHC 33.1, RDW Std Deviation 61.6 H, RDW Coeff of Jaleel 16.7 H, Plt Count 246, MPV 9.4, Immature Gran % (Auto) 0.400, Neut % (Auto) 63.2, Lymph % (Auto) 20.4, [place] % (Auto) 13.6 H, Eos % (Auto) 1.8, Baso % (Auto) 0.6, Absolute Neuts (auto) 3.5, Absolute Lymphs (auto) 1.11, Nucleated RBC % 0 09/04/19 06:45: Sodium 143, Potassium 3.1 L, Chloride 109 H, Carbon Dioxide 27.0, Anion Gap 7, BUN 4 L, Creatinine 0.57, Estim Creat Clear Calc 41.33, Est GFR (MDRD) Af Amer 132, Est GFR (MDRD) Non-Af 109, BUN/Creatinine Ratio 7.0 L, Glucose 109 H, Calcium 8.3 L 09/04/19 11:27: POC Glucose 103 Current Medications Acetaminophen (Tylenol) 650 mg PO Q6H PRN PRN PRN Reason: Pain Score 1-3/Temp > 100.7 F Last Admin: 09/04/19 03:15 Dose: 650 mg Documented by: Acyclovir (Zovirax) 400 mg PO 5X/DAY [facility] Last Admin: 09/04/19 13:14 Dose: 400 mg Documented by: Amlodipine Besylate (Norvasc) 10 mg PO DAILY [facility] Last Admin: 09/04/19 09:10 Dose: 10 mg Documented by: Ascorbic Acid (Vitamin C) 1,000 mg PO DAILY [facility] Last Admin: 09/04/19 09:10 Dose: 1,000 mg Documented by: Cholecalciferol (Vitamin D) 2,000 unit PO DAILY [facility] Last Admin: 09/04/19 09:10 Dose: 2,000 unit Documented by: Enoxaparin Sodium (Lovenox) 40 mg SC DAILY [facility] Last Admin: 09/04/19 11:29 Dose: 40 mg Documented by: Gabapentin (Neurontin) 800 mg PO TID [facility] Last Admin: 09/04/19 13:14 Dose: 800 mg Documented by: Glucagon () 1 mg IM .X1 PRN PRN Reason: Hypoglycemia Sodium Chloride () 1,000 mls @ 75 mls/hr IV .[id number] [facility] Last Admin: 09/04/19 03:08 Dose: 75 mls/hr Documented by: Dextrose (Dextrose 10%-Water) 250 mls @ 999 mls/hr IV .Q16M PRN; Protocol PRN Reason: HYPOGLYCEMIA Ceftriaxone Sodium 2 gm/ (Sodium Chloride) 50 mls @ 100 mls/hr IV Q24 [facility] Last Infusion: 09/04/19 09:39 Dose: Infused Documented by: Metronidazole (Flagyl) 500 mg in 100 mls @ 100 mls/hr IV Q8 [facility] Last Admin: 09/04/19 13:14 Dose: 100 mls/hr Documented by: Insulin Human Lispro (Humalog Kwikpen (Bkc)) 0 unit SC ACHS [facility]; Protocol Last Admin: 09/04/19 11:30 Dose: Not Given Documented by: Lidocaine HCl (Xylocaine Jelly) 0 tube TOPICAL 4X/DAY PRN PRN; Protocol PRN Reason: Mouth pain Last Admin: 09/04/19 06:12 Dose: 1 tube Documented by: Lidocaine/Diphenhydr/Alum/Mg/Simeth () 10 ml PO 4X/DAY PRN PRN PRN Reason: MOUTH IRRITATION Last Admin: 09/02/19 16:54 Dose: 10 ml Documented by: Lisinopril (Zestril) 20 mg PO DAILY [facility] Last Admin: 09/04/19 09:10 Dose: 20 mg Documented by: Magnesium Oxide (Mag-Ox 400) 400 mg PO DAILY [facility] Last Admin: 09/04/19 09:10 Dose: 400 mg Documented by: Ondansetron HCl (Zofran Odt) 4 mg PO Q8H PRN PRN PRN Reason: NAUSEA Oxycodone HCl (Oxyir) 5 mg PO Q6H PRN PRN PRN Reason: Pain Score 6-10/10 Last Admin: 09/04/19 13:14 Dose: 5 mg Documented by: Pantoprazole Sodium (Protonix) 40 mg PO BID [facility] Last Admin: 09/04/19 09:10 Dose: 40 mg Documented by: Potassium [facility] ([facility] Stop: 09/06/19 17:01 Sodium Chloride () 10 - 40 ml IV UD PRN PRN Reason: SALINE FLUSH Last Admin: 09/01/19 18:30 Dose: 10 ml Documented by: Sodium Chloride ([place] Nasal [place]) 2 spray NASAL QHS [facility] Last Admin: 09/03/19 21:37 Dose: 2 spray Documented by: Zolpidem Tartrate (Ambien (Generic)) 5 mg PO QHS [facility] Last Admin: 09/03/19 21:36 Dose: 5 mg Documented by: Medical Necessity - Tobacco Use Smoking Status: Never smoker Assessment/Plan All Active Problems (Last Reviewed 12/27/18 @ 13:52 by Luly Noriega, ESTEFANÍA-C) Gastroenteritis (Acute) Gingivostomatitis (Acute) UTI (urinary tract infection) (Acute) Shortness of breath (Acute) Bronchitis (Acute) Hx pulmonary embolism (Resolved) HCAP (healthcare-associated pneumonia) (Resolved) Cervical post-laminectomy syndrome (Resolved) Pulmonary embolism, bilateral (Resolved) Shingles (Resolved) This 74-year-old female was admitted with nausea, vomiting and diarrhea and abdominal pain. Patient also has oral ulcer for last 2 weeks. She has nodules in the finger and toe. 1. Acute transverse colitis: [facility] Patient denies any recent antibiotic in July 2019. Patient is on lidocaine gel on the lips and Magic mouthwash. Stool for C. difficile and enteric bacteriology panel are negative. CT abdomen shows transverse colitis. ID has been consulted. Started on IV ceftriaxone and Flagyl. ID agrees with ceftriaxone and Flagyl and if no improvement surgical consult for possible upper and lower endoscopy. As per ID, colonoscopy was normal a year ago. 09/03: Patient still has abdominal pain but no fever or chills. Mild hypokalemia: Potassium being replaced. 09/04: Patient has hypokalemia: Potassium is replaced. Check magnesium and phosphorus. 2. Oral ulceration along with nodules in finger/subcutaneous nodule: It seems patient has possible herpes simplex infection or a staph infection. HSV PCR negative. Left hand x-ray ordered. 09/03: Oral ulceration and pharyngeal rash has improved. Patient denies genital ulceration. There is possibility patient might have a small vessel vasculitis like Behchet disease but patient does not complain of blurry vision or eye soreness. /: Oral ulceration is proving. 3. . DM 2 Metformin on hold. On sliding scale insulin with glucose checks. 4 CAD/HTN -Blood pressures and vital signs are stable -Continue with amlodipine/benazepril Chronic pain syndrome/Chiari malformation -Continue with Percocet and gabapentin -Her symptoms are stable with her chronic management 5. GERD -Stable -Continue with Protonix DVT: SCDs Clinical Impression(s) from Imaging Studies Abdomen/Pelvis CT 09/01/19 11:49 IMPRESSION: Thickening of the colon, consistent with colitis. Differential considerations are inflammatory, infectious and ischemic disease. Moderate aortoiliac atherosclerosis. Small nonobstructing right renal calculus. Electronically Signed: Jessica Tello MD at 15:27 EST Tel , Service support , Hand X-Ray 09/02/19 15:55 IMPRESSION: Osteopenia with osteoarthritic changes. No acute finding. Microbiology Past 72 Hours 09/01/19 19:30 Stool Enteric Bacteriology - Final 09/01/19 19:30 Stool C. difficile DNA Amplification - Final Laboratory Results 09/03/19 16:15: POC Glucose 99 09/03/19 21:35: POC Glucose 104 09/04/19 06:24: POC Glucose 108 09/04/19 06:45: WBC 5.5, RBC 3.28 L, Hgb 11.0 L, Hct 33.2 L, MCV 101.2 H, MCH 33.5 H, MCHC 33.1, RDW Std Deviation 61.6 H, RDW Coeff of Jaleel 16.7 H, Plt Count 246, MPV 9.4, Immature Gran % (Auto) 0.400, Neut % (Auto) 63.2, Lymph % (Auto) 20.4, [place] % (Auto) 13.6 H, Eos % (Auto) 1.8, Baso % (Auto) 0.6, Absolute Neuts (auto) 3.5, Absolute Lymphs (auto) 1.11, Nucleated RBC % 0 09/04/19 06:45: Sodium 143, Potassium 3.1 L, Chloride 109 H, Carbon Dioxide 27.0, Anion Gap 7, BUN 4 L, Creatinine 0.57, Estim Creat Clear Calc 41.33, Est GFR (MDRD) Af Amer 132, Est GFR (MDRD) Non-Af 109, BUN/Creatinine Ratio 7.0 L, Glucose 109 H, Calcium 8.3 L 09/04/19 11:27: POC Glucose 103 Code Visit Inpatient E&M: 74680 Subs Hosp L2
[2019-09-04] MEDS: BMX LIQUID 180 ML 10 ML PO (15:46)
[2019-09-04 15:52] VITALS: BP 132/75; PULSE 82; RESP 18; TEMP 36.9; O2SAT 98
[2019-09-04 16:02] LABS: Magnesium 1.5 mg/dL (1.6-2.6)
[2019-09-04 16:21] LABS: Bedside Glucose 117 mg/dL (70-110)
[2019-09-04 20:43] VITALS: BP 141/91; PULSE 78; RESP 18; TEMP 36.9; O2SAT 96
[2019-09-04] MEDS: Zolpidem Tartrate 5 MG Tablet PO (22:11)
[2019-09-04] MEDS: Sodium Chloride 0.65% 1 SPRAY SPRAY.BTL 2 SPRAY NASAL (22:12)
[2019-09-04 22:31] LABS: Bedside Glucose 116 mg/dL (70-110)
[2019-09-05] MEDS: oxyCODONE 5 MG Tablet PO ×4 (01:40→21:55)
[2019-09-05] MEDS: Acyclovir 200 MG Capsule 400 MG PO ×5 (05:39→21:54)
[2019-09-05] MEDS: metroNIDAZOLE 500 MG/100 ML BAG 100 MG IV (05:41)
[2019-09-05] MEDS: Gabapentin 400 MG Capsule 800 MG PO ×3 (05:41→21:53)
[2019-09-05] MEDS: Acetaminophen 325 MG Tablet 650 MG PO ×2 (05:44→14:17)
[2019-09-05 05:51] VITALS: BP 152/99; PULSE 77; RESP 16; TEMP 35.9; O2SAT 95
[2019-09-05 06:01] LABS: Bedside Glucose 120 mg/dL (70-110)
[2019-09-05 06:19] LABS: Absolute Lymphocyte Count 1.27 X10^3/uL (0.83-4.51); Basophil# 0.03 X10^3/uL; Basophil% 0.6 % (0-1); Eosinophil# 0.14 X10^3/uL; Eosinophils% 2.7 % (0-5); Hematocrit 38.2 % (37-47); Hemoglobin 12.5 g/dL (12.0-15.0); Lymphocyte # 1.27 X10^3/ul (4.0); Lymphocyte % 24.8 % (19-41); Mean Corp Hgb Conc 32.7 g/dL (32-36); Mean Corpuscular Hgb 33.2 pg (27.0-32.0); Mean Corpuscular Volume 101.6 fL (81-99); Mean Platelet Vol. 9.6 fl (6.2-12.0); Monocyte# 0.72 X10^3/uL; NRBC Flagged by Analyzer 0 % (0-5); Neutrophil # 2.96 X10^3/uL (2.7-7.7); Neutrophil % 57.7 % (47-70); Platelet Count 283 K/mm3 (150-450); RBC Distribution Width CV 17.2 % (11.6-14.6); RBC Distribution Width SD 63.8 fl (35.1-43.9); Red Blood Count 3.76 M/mm3 (4.2-5.4); White Blood Count 5.1 K/mm3 (4.4-11.0)
[2019-09-05 06:40] LABS: Anion Gap 6 (5-15); BUN 2 mg/dL (7-18); BUN/Creat Ratio 3.4 RATIO (10-20); Calcium,Total 8.3 mg/dL (8.5-10.1); Chloride 109 mmol/L (98-107); EST Glomerular Filtration Rate 104 mL/min (>60); Est Glom Filt Rate - Afr Amer 126 mL/min (>60); Estimated Creatinine Clearance 41.33 ml/min; Glucose 134 mg/dL (74-106); Magnesium 1.5 mg/dL (1.6-2.6); Potassium 3.3 mmol/L (3.5-5.1); Sodium Level 141 mmol/L (136-145)
[2019-09-05] MEDS: Ondansetron ODT 4 MG Tablet PO (08:13)
[2019-09-05] MEDS: 0.9% Normal Saline 1,000 ML 75 ML IV ×2 (09:24→21:54)
[2019-09-05] MEDS: Enoxaparin 40 MG/0.4 ML Syringe SC (09:28)
[2019-09-05] MEDS: Magnesium Oxide 400 MG Tablet PO (09:29)
[2019-09-05] MEDS: Lisinopril 20 MG Tablet PO (09:29)
[2019-09-05] MEDS: amLODIPine 10 MG Tablet PO (09:31)
[2019-09-05] MEDS: Pantoprazole Sodium 40 MG Tablet PO ×2 (09:32→21:53)
[2019-09-05 09:33] VITALS: BP 145/73; PULSE 71; RESP 16; TEMP 36.5; O2SAT 95
--- NOTE | 2019-09-05 11:32 | PCM.PN.ID ---
Patient Problems: Active and Suspected Problems (Last Reviewed 12/27/18 @ 13:52 by HUANG Scott) Gastroenteritis (Acute) Gingivostomatitis (Acute) Subjective: Patient with diarrhea but denies any abdominal pain or nausea or vomiting. No recent fevers. Objective: Alert and oriented does not appear toxic patient does have mucosal ulcerations lungs are clear heart exam S1-S2 abdomen soft nontender - Physical Exam Vitals/I&O's: Vital Signs Temp Pulse Resp BP Pulse Ox 97.7 F L 71 16 145/73 H 95 09/05/19 09:33 09/05/19 09:33 09/05/19 09:33 09/05/19 09:33 09/05/19 09:33 Oxygen Delivery Method Room Air Weight: 69.4 kg Body Mass Index (BMI) 26.2 Finger Stick Blood Glucose 172 Intake and Output for Last 24 Hours 09/03/19 09/04/19 09/05/19 23:59 23:59 23:59 Intake Total 3481.25 / 3881.25 4780.00 / 5000.00 1622.5 / 1622.5 Output Total 1050 / 1050 850 / 1150 325 / 325 Balance 2431.25 / 2831.25 3930.00 / 3850.00 1297.5 / 1297.5 Microbiology Past 72 Hours 09/01/19 19:30 Stool Enteric Bacteriology - Final Laboratory Results 09/04/19 06:45: Magnesium 1.5 L 09/04/19 11:27: POC Glucose 103 09/04/19 16:10: POC Glucose 117 H 09/04/19 22:09: POC Glucose 116 H 09/05/19 05:48: POC Glucose 120 H 09/05/19 06:00: WBC 5.1, RBC 3.76 L, Hgb 12.5, Hct 38.2, MCV 101.6 H, MCH 33.2 H, MCHC 32.7, RDW Std Deviation 63.8 H, RDW Coeff of Jaleel 17.2 H, Plt Count 283, MPV 9.6, Immature Gran % (Auto) 0.200, Neut % (Auto) 57.7, Lymph % (Auto) 24.8, [place] % (Auto) 14.0 H, Eos % (Auto) 2.7, Baso % (Auto) 0.6, Absolute Neuts (auto) 3.0, Absolute Lymphs (auto) 1.27, Nucleated RBC % 0 09/05/19 06:00: Sodium 141, Potassium 3.3 L, Chloride 109 H, Carbon Dioxide 26.0, Anion Gap 6, BUN 2 L, Creatinine 0.60, Estim Creat Clear Calc 41.33, Est GFR (MDRD) Af Amer 126, Est GFR (MDRD) Non-Af 104, BUN/Creatinine Ratio 3.4 L, Glucose 134 H, Calcium 8.3 L, Phosphorus 3.0, Magnesium 1.5 L Current Medications Acetaminophen (Tylenol) 650 mg PO Q6H PRN PRN PRN Reason: Pain Score 1-3/Temp > 100.7 F Last Admin: 09/05/19 05:44 Dose: 650 mg Documented by: Acyclovir (Zovirax) 400 mg PO 5X/DAY [facility] Last Admin: 09/05/19 09:42 Dose: 400 mg Documented by: Amlodipine Besylate (Norvasc) 10 mg PO DAILY [facility] Last Admin: 09/05/19 09:31 Dose: 10 mg Documented by: Ascorbic Acid (Vitamin C) 1,000 mg PO DAILY [facility] Last Admin: 09/05/19 09:30 Dose: Not Given Documented by: Cholecalciferol (Vitamin D) 2,000 unit PO DAILY [facility] Last Admin: 09/05/19 09:30 Dose: Not Given Documented by: Enoxaparin Sodium (Lovenox) 40 mg SC DAILY [facility] Last Admin: 09/05/19 09:28 Dose: 40 mg Documented by: Gabapentin (Neurontin) 800 mg PO TID [facility] Last Admin: 09/05/19 05:41 Dose: 800 mg Documented by: Glucagon () 1 mg IM .X1 PRN PRN Reason: Hypoglycemia Sodium Chloride () 1,000 mls @ 75 mls/hr IV .[id number] [facility] Last Infusion: 09/05/19 09:26 Dose: 0 mls/hr Documented by: Dextrose (Dextrose 10%-Water) 250 mls @ 999 mls/hr IV .Q16M PRN; Protocol PRN Reason: HYPOGLYCEMIA Insulin Human Lispro (Humalog Kwikpen (Bkc)) 0 unit SC ACHS [facility]; Protocol Last Admin: 09/05/19 05:50 Dose: Not Given Documented by: Lidocaine HCl (Xylocaine Jelly) 0 tube TOPICAL 4X/DAY PRN PRN; Protocol PRN Reason: Mouth pain Last Admin: 09/04/19 22:12 Dose: 1 tube Documented by: Lidocaine/Diphenhydr/Alum/Mg/Simeth () 10 ml PO 4X/DAY PRN PRN PRN Reason: MOUTH IRRITATION Last Admin: 09/04/19 15:46 Dose: 10 ml Documented by: Lisinopril (Zestril) 20 mg PO DAILY [facility] Last Admin: 09/05/19 09:29 Dose: 20 mg Documented by: Magnesium Oxide (Mag-Ox 400) 400 mg PO DAILY [facility] Last Admin: 09/05/19 09:29 Dose: 400 mg Documented by: Ondansetron HCl (Zofran Odt) 4 mg PO Q8H PRN PRN PRN Reason: NAUSEA Last Admin: 09/05/19 08:13 Dose: 4 mg Documented by: Oxycodone HCl (Oxyir) 5 mg PO Q6H PRN PRN PRN Reason: Pain Score 6-10/10 Last Admin: 09/05/19 09:22 Dose: 5 mg Documented by: Pantoprazole Sodium (Protonix) 40 mg PO BID [facility] Last Admin: 09/05/19 09:32 Dose: 40 mg Documented by: [facility] Stop: 09/06/19 17:01 Last Admin: 09/05/19 09:23 Dose: 40 meq Documented by: Sodium Chloride () 10 - 40 ml IV UD PRN PRN Reason: SALINE FLUSH Last Admin: 09/01/19 18:30 Dose: 10 ml Documented by: Sodium Chloride ([place] Nasal [place]) [facility] Last Admin: 09/04/19 22:12 Dose: 2 spray Documented by: Zolpidem Tartrate (Ambien (Generic)) 5 mg PO QHS [facility] Last Admin: 09/04/19 22:11 Dose: 5 mg Documented by: Medical Necessity - Tobacco Use Smoking Status: Never smoker Route of nutrition/ use of supplements: [] Nutritional Intake: [] IV Site: [] Wong Catheter: [] - Assessment/Plan Antibiotics: [] Assessment/Plan: [] Active and Suspected Problems (Last Reviewed 12/27/18 @ 13:52 by Luly Noriega, [employer] OILS LOADER-C) Gastroenteritis (Acute) Gingivostomatitis (Acute) Patient stool studies are negative. At this point be reasonable to discontinue ceftriaxone and metronidazole. I agree with oral acyclovir for gingivostomatitis.
[2019-09-05 12:15] LABS: Bedside Glucose 138 mg/dL (70-110)
--- NOTE | 2019-09-05 13:55 | PCM.PN.HOSP ---
Patient Problems: Active and Suspected Problems (Last Reviewed 12/27/18 @ 13:52 by HUANG Scott) Gastroenteritis (Acute) Gingivostomatitis (Acute) Reason for Visit: The patient oral lesions are getting better. She still has pain in the abdomen. Transverse colitis. Oropharyngeal ulcer. Objective: Patient potassium and magnesium are low. No fever or chills. No tachycardia. Discussed with ID. Vitals/I&O's: Vital Signs Temp Pulse Resp BP Pulse Ox 97.7 F L 71 16 145/73 H 95 09/05/19 09:33 09/05/19 09:33 09/05/19 09:33 09/05/19 09:33 09/05/19 09:33 Oxygen Delivery Method Room Air Weight: 153 lb 0.002 oz Body Mass Index (BMI) 26.2 Finger Stick Blood Glucose 172 Intake and Output for Last 24 Hours 09/03/19 09/04/19 09/05/19 23:59 23:59 23:59 Intake Total 3481.25 / 3881.25 4780.00 / 5000.00 2072.5 / 2072.5 Output Total 1050 / 1050 850 / 1150 775 / 775 Balance 2431.25 / 2831.25 3930.00 / 3850.00 1297.5 / 1297.5 General: Alert, Oriented x3, Cooperative HEENT: Atraumatic, PERRLA, EOMI, Normocephalic Oral: Dry Mucosa, - - Crusting the oral mucosa. Superficial ulceration of floor of mouth and soft palate and pharynx Neck: Supple, No JVD, Negative Carotid Bruits Lungs: Clear to auscultation, Normal air movement Cardiovascular: Regular rate, Regular Rhythm, Normal S1, Normal S2, No murmurs Abdomen: Bowel Sounds Present, Soft, Non-Distended, Tender - Mild deep tenderness present in upper abdomen Extremities: No edema, Capillary Refill Less than 3 Seconds Skin: No rashes, No breakdown Musculoskeletal: No Tenderness to Palpation of Joints or Extremities, Arthritic Changes Neurological: Cranial nerves II-XII grossly intact Psych/Mental Status: Normal Affect, Appropriate Microbiology Past 72 Hours 09/01/19 19:30 Stool Enteric Bacteriology - Final Laboratory Results 09/04/19 06:45: Magnesium 1.5 L 09/04/19 16:10: POC Glucose 117 H 09/04/19 22:09: POC Glucose 116 H 09/05/19 05:48: POC Glucose 120 H 09/05/19 06:00: WBC 5.1, RBC 3.76 L, Hgb 12.5, Hct 38.2, MCV 101.6 H, MCH 33.2 H, MCHC 32.7, RDW Std Deviation 63.8 H, RDW Coeff of Jaleel 17.2 H, Plt Count 283, MPV 9.6, Immature Gran % (Auto) 0.200, Neut % (Auto) 57.7, Lymph % (Auto) 24.8, [place] % (Auto) 14.0 H, Eos % (Auto) 2.7, Baso % (Auto) 0.6, Absolute Neuts (auto) 3.0, Absolute Lymphs (auto) 1.27, Nucleated RBC % 0 09/05/19 06:00: Sodium 141, Potassium 3.3 L, Chloride 109 H, Carbon Dioxide 26.0, Anion Gap 6, BUN 2 L, Creatinine 0.60, Estim Creat Clear Calc 41.33, Est GFR (MDRD) Af Amer 126, Est GFR (MDRD) Non-Af 104, BUN/Creatinine Ratio 3.4 L, Glucose 134 H, Calcium 8.3 L, Phosphorus 3.0, Magnesium 1.5 L 09/05/19 11:43: POC Glucose 138 H Current Medications Acetaminophen (Tylenol) 650 mg PO Q6H PRN PRN PRN Reason: Pain Score 1-3/Temp > 100.7 F Last Admin: 09/05/19 05:44 Dose: 650 mg Documented by: Acyclovir (Zovirax) 400 mg PO 5X/DAY [facility] Last Admin: 09/05/19 09:42 Dose: 400 mg Documented by: Amlodipine Besylate (Norvasc) 10 mg PO DAILY [facility] Last Admin: 09/05/19 09:31 Dose: 10 mg Documented by: Ascorbic Acid (Vitamin C) 1,000 mg PO DAILY [facility] Last Admin: 09/05/19 09:30 Dose: Not Given Documented by: Cholecalciferol (Vitamin D) 2,000 unit PO DAILY [facility] Last Admin: 09/05/19 09:30 Dose: Not Given Documented by: Enoxaparin Sodium (Lovenox) 40 mg SC DAILY [facility] Last Admin: 09/05/19 09:28 Dose: 40 mg Documented by: Gabapentin (Neurontin) 800 mg PO TID [facility] Last Admin: 09/05/19 05:41 Dose: 800 mg Documented by: Glucagon () 1 mg IM .X1 PRN PRN Reason: Hypoglycemia Sodium Chloride () 1,000 mls @ 75 mls/hr IV .[id number] [facility] Last Infusion: 09/05/19 10:20 Dose: 75 mls/hr Documented by: Dextrose (Dextrose 10%-Water) 250 mls @ 999 mls/hr IV .Q16M PRN; Protocol PRN Reason: HYPOGLYCEMIA Magnesium Sulfate 2 gm/ Sodium (Chloride) 104 mls @ 52 mls/hr IV X1 [facility] Stop: 09/05/19 15:53 Insulin Human Lispro (Humalog Kwikpen (Bkc)) 0 unit SC ACHS [facility]; Protocol Last Admin: 09/05/19 11:44 Dose: Not Given Documented by: Lidocaine HCl (Xylocaine Jelly) 0 tube TOPICAL 4X/DAY PRN PRN; Protocol PRN Reason: Mouth pain Last Admin: 09/04/19 22:12 Dose: 1 tube Documented by: Lidocaine/Diphenhydr/Alum/Mg/Simeth () 10 ml PO 4X/DAY PRN PRN PRN Reason: MOUTH IRRITATION Last Admin: 09/04/19 15:46 Dose: 10 ml Documented by: Lisinopril (Zestril) 20 mg PO DAILY [facility] Last Admin: 09/05/19 09:29 Dose: 20 mg Documented by: Magnesium Oxide (Mag-Ox 400) 400 mg PO DAILY [facility] Last Admin: 09/05/19 09:29 Dose: 400 mg Documented by: Ondansetron HCl (Zofran Odt) 4 mg PO Q8H PRN PRN PRN Reason: NAUSEA Last Admin: 09/05/19 08:13 Dose: 4 mg Documented by: Oxycodone HCl (Oxyir) 5 mg PO Q6H PRN PRN PRN Reason: Pain Score 6-10/10 Last Admin: 09/05/19 09:22 Dose: 5 mg Documented by: Pantoprazole Sodium (Protonix) 40 mg PO BID [facility] Last Admin: 09/05/19 09:32 Dose: 40 mg Documented by: Potassium Chloride (K-Dur) 40 meq PO TID [facility] Stop: 09/07/19 14:01 Sodium Chloride () 10 - 40 ml IV UD PRN PRN Reason: SALINE FLUSH Last Admin: 09/01/19 18:30 Dose: 10 ml Documented by: Sodium Chloride ([place] Nasal [place]) 2 spray NASAL QHS [facility] Last Admin: 09/04/19 22:12 Dose: 2 spray Documented by: Zolpidem Tartrate (Ambien (Generic)) 5 mg PO QHS [facility] Last Admin: 09/04/19 22:11 Dose: 5 mg Documented by: Medical Necessity - Tobacco Use Smoking Status: Never smoker Assessment/Plan All Active Problems (Last Reviewed 12/27/18 @ 13:52 by Luly Noriega, ESTEFANÍA-C) Gastroenteritis (Acute) Gingivostomatitis (Acute) UTI (urinary tract infection) (Acute) Shortness of breath (Acute) Bronchitis (Acute) Hx pulmonary embolism (Resolved) HCAP (healthcare-associated pneumonia) (Resolved) Cervical post-laminectomy syndrome (Resolved) Pulmonary embolism, bilateral (Resolved) Shingles (Resolved) This 74-year-old female was admitted with nausea, vomiting and diarrhea and abdominal pain. Patient also has oral ulcer for last 2 weeks. She has nodules in the finger and toe. 1. Acute transverse colitis: Patient is being admitted on [facility] floor. Patient denies any recent antibiotic in July 2019. Patient is on lidocaine gel on the lips and Magic mouthwash. Stool for C. difficile and enteric bacteriology panel are negative. CT abdomen shows transverse colitis. ID has been consulted. Started on IV ceftriaxone and Flagyl. ID agrees with ceftriaxone and Flagyl and if no improvement surgical consult for possible upper and lower endoscopy. As per ID, colonoscopy was normal a year ago. 09/03: Patient still has abdominal pain but no fever or chills. Mild hypokalemia: Potassium being replaced. 09/04: Patient has hypokalemia: Potassium is replaced. Check magnesium and phosphorus. 09/05: Hypokalemia and hypomagnesemia: Potassium magnesium start replaced. Phosphorus level normal. ID discontinued antibiotics. 2. Oral ulceration along with nodules in finger/subcutaneous nodule: It seems patient has possible herpes simplex infection or a staph infection. HSV PCR negative. Left hand x-ray ordered. 09/03: Oral ulceration and pharyngeal rash has improved. Patient denies genital ulceration. There is possibility patient might have a small vessel vasculitis like Behchet disease but patient does not complain of blurry vision or eye soreness. 09/04: Oral ulceration is proving. On acyclovir since admission. 3. . DM 2 Metformin on hold. On sliding scale insulin with glucose checks. 4 CAD/HTN -Blood pressures and vital signs are stable -Continue with amlodipine/benazepril Chronic pain syndrome/Chiari malformation -Continue with Percocet and gabapentin -Her symptoms are stable with her chronic management 5. GERD -Stable -Continue with Protonix DVT: SCDs Clinical Impression(s) from Imaging Studies Abdomen/Pelvis CT 09/01/19 11:49 IMPRESSION: Thickening of the colon, consistent with colitis. Differential considerations are inflammatory, infectious and ischemic disease. Moderate aortoiliac atherosclerosis. Small nonobstructing right renal calculus. Electronically Signed: Jessica Tello MD at 15:27 EST Tel , Service support , Hand X-Ray 09/02/19 15:55 IMPRESSION: Osteopenia with osteoarthritic changes. No acute finding. Microbiology Past 72 Hours 09/01/19 19:30 Stool Enteric Bacteriology - Final 09/01/19 19:30 Stool C. difficile DNA Amplification - Final Laboratory Results 09/03/19 16:15: POC Glucose 99 09/03/19 21:35: POC Glucose 104 09/04/19 06:24: POC Glucose 108 09/04/19 06:45: WBC 5.5, RBC 3.28 L, Hgb 11.0 L, Hct 33.2 L, MCV 101.2 H, MCH 33.5 H, MCHC 33.1, RDW Std Deviation 61.6 H, RDW Coeff of Jaleel 16.7 H, Plt Count 246, MPV 9.4, Immature Gran % (Auto) 0.400, Neut % (Auto) 63.2, Lymph % (Auto) 20.4, [place] % (Auto) 13.6 H, Eos % (Auto) 1.8, Baso % (Auto) 0.6, Absolute Neuts (auto) 3.5, Absolute Lymphs (auto) 1.11, Nucleated RBC % 0 09/04/19 06:45: Sodium 143, Potassium 3.1 L, Chloride 109 H, Carbon Dioxide 27.0, Anion Gap 7, BUN 4 L, Creatinine 0.57, Estim Creat Clear Calc 41.33, Est GFR (MDRD) Af Amer 132, Est GFR (MDRD) Non-Af 109, BUN/Creatinine Ratio 7.0 L, Glucose 109 H, Calcium 8.3 L 09/04/19 11:27: POC Glucose 103 Code Visit Inpatient E&M: 05385 Subs Hosp L2
[2019-09-05 14:26] VITALS: BP 138/75; PULSE 77; RESP 18; TEMP 36.5; O2SAT 95
[2019-09-05 16:40] LABS: Bedside Glucose 132 mg/dL (70-110)
[2019-09-05] MEDS: Zolpidem Tartrate 5 MG Tablet PO (21:53)
[2019-09-05] MEDS: Sodium Chloride 0.65% 1 SPRAY SPRAY.BTL 2 SPRAY NASAL (21:55)
[2019-09-05 21:59] VITALS: BP 141/77; PULSE 69; RESP 18; TEMP 36.9; O2SAT 96
[2019-09-05 23:06] LABS: Bedside Glucose 113 mg/dL (70-110)
[2019-09-06 04:00] VITALS: BP 132/82; PULSE 70; RESP 16; TEMP 37; O2SAT 95
[2019-09-06] MEDS: oxyCODONE 5 MG Tablet PO ×3 (04:19→17:18)
[2019-09-06 06:34] LABS: Anion Gap 3 (5-15); BUN 3 mg/dL (7-18); BUN/Creat Ratio 4.9 RATIO (10-20); Calcium,Total 8.2 mg/dL (8.5-10.1); Chloride 114 mmol/L (98-107); Creatinine, Serum 0.62 mg/dL (0.55-1.02); EST Glomerular Filtration Rate 100 mL/min (>60); Est Glom Filt Rate - Afr Amer 121 mL/min (>60); Estimated Creatinine Clearance 41.33 ml/min; Glucose 130 mg/dL (74-106); Potassium 4.2 mmol/L (3.5-5.1); Sodium Level 142 mmol/L (136-145)
[2019-09-06] MEDS: Acyclovir 200 MG Capsule 400 MG PO ×5 (06:43→22:36)
[2019-09-06] MEDS: Gabapentin 400 MG Capsule 800 MG PO ×3 (06:43→22:36)
[2019-09-06 06:55] LABS: Bedside Glucose 111 mg/dL (70-110)
[2019-09-06] MEDS: Enoxaparin 40 MG/0.4 ML Syringe SC (08:12)
[2019-09-06] MEDS: Ascorbic Acid 500 MG Tablet 1000 MG PO (08:12)
[2019-09-06] MEDS: Lisinopril 20 MG Tablet PO (08:13)
[2019-09-06] MEDS: Pantoprazole Sodium 40 MG Tablet PO ×2 (08:13→15:08)
[2019-09-06] MEDS: amLODIPine 10 MG Tablet PO (08:13)
[2019-09-06] MEDS: Magnesium Oxide 400 MG Tablet PO (08:14)
[2019-09-06 10:00] VITALS: BP 141/80; PULSE 67; RESP 16; TEMP 36.5; O2SAT 96
--- NOTE | 2019-09-06 10:56 | PN.ID_ITS ---
Patient Problems: Active and Suspected Problems (Last Reviewed 12/27/18 @ 13:52 by HUANG Scott) Gastroenteritis (Acute) Gingivostomatitis (Acute) Subjective: Patient is alert overall clinically stable on oral acyclovir. Able to take p.o. and had breakfast this morning. No fevers Objective: Alert does not appear toxic oral mucosal ulcerations noted. Lungs are clear heart exam S1-S2 abdomen soft nontender - Physical Exam Vitals/I&O's: Vital Signs Temp Pulse Resp BP Pulse Ox 98.6 F 70 16 132/82 H 95 09/06/19 04:00 09/06/19 04:00 09/06/19 04:00 09/06/19 04:00 09/06/19 04:00 Oxygen Delivery Method Room Air Weight: 69.4 kg Body Mass Index (BMI) 26.2 Finger Stick Blood Glucose 172 Intake and Output for Last 24 Hours 09/04/19 09/05/19 09/06/19 23:59 23:59 23:59 Intake Total 4780.00 / 5000.00 3624.0 / 3624.0 240 / 240 Output Total 850 / 1150 775 / 775 1000 / 1000 Balance 3930.00 / 3850.00 2849.0 / 2849.0 -760 / -760 Laboratory Results 09/05/19 11:43: POC Glucose 138 H 09/05/19 16:10: POC Glucose 132 H 09/05/19 21:53: POC Glucose 113 H 09/06/19 05:44: Sodium 142, Potassium 4.2, Chloride 114 H, Carbon Dioxide 25.0, Anion Gap 3 L, BUN 3 L, Creatinine 0.62, Estim Creat Clear Calc 41.33, Est GFR (MDRD) Af Amer 121, Est GFR (MDRD) Non-Af 100, BUN/Creatinine Ratio 4.9 L, Glucose 130 H, Calcium 8.2 L 09/06/19 06:43: POC Glucose 111 H Current Medications Acetaminophen (Tylenol) 650 mg PO Q6H PRN PRN PRN Reason: Pain Score 1-3/Temp > 100.7 F Last Admin: 09/05/19 14:17 Dose: 650 mg Documented by: Acyclovir (Zovirax) 400 mg PO 5X/DAY [facility] Last Admin: 09/06/19 08:13 Dose: 400 mg Documented by: Amlodipine Besylate (Norvasc) 10 mg PO DAILY [facility] Last Admin: 09/06/19 08:13 Dose: 10 mg Documented by: Ascorbic Acid (Vitamin C) 1,000 mg PO DAILY [facility] Last Admin: 09/06/19 08:12 Dose: 1,000 mg Documented by: Cholecalciferol (Vitamin D) 2,000 unit PO DAILY [facility] Last Admin: 09/06/19 08:13 Dose: 2,000 unit Documented by: Enoxaparin Sodium (Lovenox) 40 mg SC DAILY [facility] Last Admin: 09/06/19 08:12 Dose: 40 mg Documented by: Gabapentin (Neurontin) 800 mg PO TID [facility] Last Admin: 09/06/19 06:43 Dose: 800 mg Documented by: Glucagon () 1 mg IM .X1 PRN PRN Reason: Hypoglycemia Sodium Chloride () 1,000 mls @ 75 mls/hr IV .[id number] [facility] Last Admin: 09/05/19 21:54 Dose: 75 mls/hr Documented by: Dextrose (Dextrose 10%-Water) 250 mls @ 999 mls/hr IV .Q16M PRN; Protocol PRN Reason: HYPOGLYCEMIA Insulin Human Lispro (Humalog Kwikpen (Bkc)) 0 unit SC [facility]; Protocol Last Admin: 09/06/19 06:44 Dose: Not Given Documented by: Lidocaine HCl (Xylocaine Jelly) 0 tube TOPICAL 4X/DAY PRN PRN; Protocol PRN Reason: Mouth pain Last Admin: 09/05/19 21:56 Dose: 1 tube Documented by: Lidocaine/Diphenhydr/Alum/Mg/Simeth () 10 ml PO 4X/DAY PRN PRN PRN Reason: MOUTH IRRITATION Last Admin: 09/04/19 15:46 Dose: 10 ml Documented by: Lisinopril (Zestril) 20 mg PO DAILY [facility] Last Admin: 09/06/19 08:13 Dose: 20 mg Documented by: Magnesium Oxide (Mag-Ox 400) 400 mg PO DAILY [facility] Last Admin: 09/06/19 08:14 Dose: 400 mg Documented by: Ondansetron HCl (Zofran Odt) 4 mg PO Q8H PRN PRN PRN Reason: NAUSEA Last Admin: 09/05/19 08:13 Dose: 4 mg Documented by: Oxycodone HCl (Oxyir) 5 mg PO Q6H PRN PRN PRN Reason: Pain Score 6-10/10 Last Admin: 09/06/19 04:19 Dose: 5 mg Documented by: Pantoprazole Sodium (Protonix) 40 mg PO BID [facility] Last Admin: 09/06/19 08:13 Dose: 40 mg Documented by: Potassium Chloride (K-Dur) 40 meq PO TID [facility] Stop: 09/07/19 14:01 Last Admin: 09/06/19 06:43 Dose: 40 meq Documented by: Sodium Chloride () 10 - 40 ml IV UD PRN PRN Reason: SALINE FLUSH Last Admin: 09/01/19 18:30 Dose: 10 ml Documented by: Sodium Chloride ([place] Nasal [place]) 2 spray NASAL QHS [facility] Last Admin: 09/05/19 21:55 Dose: 2 spray Documented by: Zolpidem Tartrate (Ambien (Generic)) 5 mg PO QHS [facility] Last Admin: 09/05/19 21:53 Dose: 5 mg Documented by: Medical Necessity - Tobacco Use Smoking Status: Never smoker Route of nutrition/ use of supplements: [] Nutritional Intake: [] IV Site: [] Wong Catheter: [] - Assessment/Plan Gingivostomatitis will continue oral acyclovir 400 mg 5 times a day for another week
[2019-09-06] MEDS: 0.9% Normal Saline 1,000 ML 75 ML IV (11:17)
[2019-09-06 11:41] LABS: Bedside Glucose 115 mg/dL (70-110)
--- NOTE | 2019-09-06 14:26 | PN_ITS ---
Patient Problems: Active and Suspected Problems (Last Reviewed 12/27/18 @ 13:52 by HUANG Scott) Gastroenteritis (Acute) Gingivostomatitis (Acute) Reason for Visit: Follow-up of transverse colitis and oropharyngeal ulcers. Objective: Vitals are stable. Her oral ulcers are getting better. She still has superficial ulceration over floor of mouth covered with yellow crust. Vitals/I&O's: Vital Signs Temp Pulse Resp BP Pulse Ox 97.7 F L 67 16 141/80 H 96 09/06/19 10:00 09/06/19 10:00 09/06/19 10:00 09/06/19 10:00 09/06/19 10:00 Oxygen Delivery Method Room Air Weight: 153 lb 0.002 oz Body Mass Index (BMI) 26.2 Finger Stick Blood Glucose 172 Intake and Output for Last 24 Hours 09/04/19 09/05/19 09/06/19 23:59 23:59 23:59 Intake Total 4780.00 / 5000.00 3624.0 / 3624.0 1240 / 1240 Output Total 850 / 1150 775 / 775 1000 / 1000 Balance 3930.00 / 3850.00 2849.0 / 2849.0 240 / 240 General: Alert, Oriented x3, Cooperative HEENT: Atraumatic, PERRLA, EOMI, Normocephalic Neck: Supple, No JVD, Negative Carotid Bruits Lungs: Clear to auscultation, Normal air movement, No rhonchi, No wheeze, No rales Cardiovascular: Regular rate, Regular Rhythm, Normal S1, Normal S2, No murmurs Abdomen: Bowel Sounds Present, Soft, Non Tender, Non-Distended Extremities: No edema, Capillary Refill Less than 3 Seconds Skin: Ulcer/ Wound - Ulcer over floor of mouth. Lateral pharyngeal ulcer has improved and almost resolved., - - Pathergy test was done on the right forearm. Musculoskeletal: No Tenderness to Palpation of Joints or Extremities, Arthritic Changes Neurological: Cranial nerves II-XII grossly intact, Neuro grossly intact Psych/Mental Status: Normal Affect, Appropriate Laboratory Results 09/05/19 16:10: POC Glucose 132 H 09/05/19 21:53: POC Glucose 113 H 09/06/19 05:44: Sodium 142, Potassium 4.2, Chloride 114 H, Carbon Dioxide 25.0, Anion Gap 3 L, BUN 3 L, Creatinine 0.62, Estim Creat Clear Calc 41.33, Est GFR (MDRD) Af Amer 121, Est GFR (MDRD) Non-Af 100, BUN/Creatinine Ratio 4.9 L, Glucose 130 H, Calcium 8.2 L 09/06/19 06:43: POC Glucose 111 H 09/06/19 11:24: POC Glucose 115 H Current Medications Acetaminophen (Tylenol) 650 mg PO Q6H PRN PRN PRN Reason: Pain Score 1-3/Temp > 100.7 F Last Admin: 09/05/19 14:17 Dose: 650 mg Documented by: Acyclovir (Zovirax) 400 mg PO 5X/DAY [facility] Last Admin: 09/06/19 08:13 Dose: 400 mg Documented by: Amlodipine Besylate (Norvasc) 10 mg PO DAILY [facility] Last Admin: 09/06/19 08:13 Dose: 10 mg Documented by: Ascorbic Acid (Vitamin C) 1,000 mg PO DAILY [facility] Last Admin: 09/06/19 08:12 Dose: 1,000 mg Documented by: Cholecalciferol (Vitamin D) 2,000 unit PO DAILY [facility] Last Admin: 09/06/19 08:13 Dose: 2,000 unit Documented by: Enoxaparin Sodium (Lovenox) 40 mg SC DAILY [facility] Last Admin: 09/06/19 08:12 Dose: 40 mg Documented by: Gabapentin (Neurontin) 800 mg PO TID [facility] Last Admin: 09/06/19 06:43 Dose: 800 mg Documented by: Glucagon () 1 mg IM .X1 PRN PRN Reason: Hypoglycemia Sodium Chloride () 1,000 mls @ 75 mls/hr IV .[id number] [facility] Last Admin: 09/06/19 11:17 Dose: 75 mls/hr Documented by: Dextrose (Dextrose 10%-Water) 250 mls @ 999 mls/hr IV .Q16M PRN; Protocol PRN Reason: HYPOGLYCEMIA Insulin Human Lispro (Humalog Kwikpen (Bkc)) 0 unit SC ACHS [facility]; Protocol Last Admin: 09/06/19 11:24 Dose: Not Given Documented by: Lidocaine HCl (Xylocaine Jelly) 0 tube TOPICAL 4X/DAY PRN PRN; Protocol PRN Reason: Mouth pain Last Admin: 09/05/19 21:56 Dose: 1 tube Documented by: Lidocaine/Diphenhydr/Alum/Mg/Simeth () 10 ml PO 4X/DAY PRN PRN PRN Reason: MOUTH IRRITATION Last Admin: 09/04/19 15:46 Dose: 10 ml Documented by: Lisinopril (Zestril) 20 mg PO DAILY [facility] Last Admin: 09/06/19 08:13 Dose: 20 mg Documented by: Magnesium Oxide (Mag-Ox 400) 400 mg PO DAILY [facility] Last Admin: 09/06/19 08:14 Dose: 400 mg Documented by: Ondansetron HCl (Zofran Odt) 4 mg PO Q8H PRN PRN PRN Reason: NAUSEA Last Admin: 09/05/19 08:13 Dose: 4 mg Documented by: Oxycodone HCl (Oxyir) 5 mg PO Q6H PRN PRN PRN Reason: Pain Score 6-10/10 Last Admin: 09/06/19 11:18 Dose: 5 mg Documented by: Pantoprazole Sodium (Protonix) 40 mg PO BID [facility] Last Admin: 09/06/19 08:13 Dose: 40 mg Documented by: Potassium Chloride (K-Dur) 40 meq PO TID [facility] Stop: 09/07/19 14:01 Last Admin: 09/06/19 06:43 Dose: 40 meq Documented by: Sodium Chloride () 10 - 40 ml IV UD PRN PRN Reason: SALINE FLUSH Last Admin: 09/01/19 18:30 Dose: 10 ml Documented by: Sodium Chloride ([place] Nasal [place]) 2 spray NASAL QHS [facility] Last Admin: 09/05/19 21:55 Dose: 2 spray Documented by: Zolpidem Tartrate (Ambien (Generic)) 5 mg PO QHS [facility] Last Admin: 09/05/19 21:53 Dose: 5 mg Documented by: Medical Necessity - Tobacco Use Smoking Status: Never smoker Assessment/Plan All Active Problems (Last Reviewed 12/27/18 @ 13:52 by SAGE ScottC) Gastroenteritis (Acute) Gingivostomatitis (Acute) UTI (urinary tract infection) (Acute) Shortness of breath (Acute) Bronchitis (Acute) Hx pulmonary embolism (Resolved) HCAP (healthcare-associated pneumonia) (Resolved) Cervical post-laminectomy syndrome (Resolved) Pulmonary embolism, bilateral (Resolved) Shingles (Resolved) This 74-year-old female was admitted with nausea, vomiting and diarrhea and abdominal pain. Patient also has oral ulcer for last 2 weeks. She has nodules in the finger and toe. 1. Acute transverse colitis: Patient is being admitted on [facility] floor. Patient denies any recent antibiotic in July 2019. Patient is on lidocaine gel on the lips and Magic mouthwash. Stool for C. difficile and enteric bacteriology panel are negative. CT abdomen shows transverse colitis. ID has been consulted. Started on IV ceftriaxone and Flagyl. ID agrees with ceftriaxone and Flagyl and if no improvement surgical consult for possible upper and lower endoscopy. As per ID, colonoscopy was normal a year ago. 09/03: Patient still has abdominal pain but no fever or chills. Mild hypokalemia: Potassium being replaced. 09/04: Patient has hypokalemia: Potassium is replaced. Check magnesium and phosphorus. 09/05: Hypokalemia and hypomagnesemia: Potassium magnesium start replaced. Phosphorus level normal. ID discontinued antibiotics. 09/06: Abdominal tenderness has resolved. No fever or chills. On acyclovir 2. Oral ulceration along with nodules in finger/subcutaneous nodule: It seems patient has possible herpes simplex infection or a staph infection. HSV PCR negative. Left hand x-ray ordered. 09/03: Oral ulceration and pharyngeal rash has improved. Patient denies genital ulceration. There is possibility patient might have a small vessel vasculitis like Behchet disease but patient does not complain of blurry vision or eye soreness. 09/04: Oral ulceration is proving. On acyclovir since admission. 09/06: On right forearm pathergy test was done with a sterile needle. Will reevaluate after 24 hours. 3. DM 2 Metformin on hold. On sliding scale insulin with glucose checks. 4 CAD/HTN -Blood pressures and vital signs are stable -Continue with amlodipine/benazepril Chronic pain syndrome/Chiari malformation -Continue with Percocet and gabapentin -Her symptoms are stable with her chronic management 5. GERD -Stable -Continue with Protonix DVT: SCDs Clinical Impression(s) from Imaging Studies Abdomen/Pelvis CT 09/01/19 11:49 IMPRESSION: Thickening of the colon, consistent with colitis. Differential considerations are inflammatory, infectious and ischemic disease. Moderate aortoiliac atherosclerosis. Small nonobstructing right renal calculus. Electronically Signed: Jessica Tello MD at 15:27 EST Tel , Service support , Hand X-Ray 09/02/19 15:55 IMPRESSION: Osteopenia with osteoarthritic changes. No acute finding. Clinical Impression(s) from Imaging Studies Abdomen/Pelvis CT 09/01/19 11:49 IMPRESSION: Thickening of the colon, consistent with colitis. Differential considerations are inflammatory, infectious and ischemic disease. Moderate aortoiliac atherosclerosis. Small nonobstructing right renal calculus. Electronically Signed: Jessica Tello MD at 15:27 EST Tel , Service support , Hand X-Ray 09/02/19 15:55 IMPRESSION: Osteopenia with osteoarthritic changes. No acute finding. Electronically Signed: Heraclio Meredith MD at 16:07 EST , Service support , Active Medications Acetaminophen (Tylenol) 650 mg PO Q6H PRN PRN PRN Reason: Pain Score 1-3/Temp > 100.7 F Last Admin: 09/05/19 14:17 Dose: 650 mg Documented by: Acyclovir (Zovirax) 400 mg PO 5X/DAY [facility] Last Admin: 09/06/19 08:13 Dose: 400 mg Documented by: Amlodipine Besylate (Norvasc) 10 mg PO DAILY [facility] Last Admin: 09/06/19 08:13 Dose: 10 mg Documented by: Ascorbic Acid (Vitamin C) 1,000 mg PO DAILY [facility] Last Admin: 09/06/19 08:12 Dose: 1,000 mg Documented by: Cholecalciferol (Vitamin D) 2,000 unit PO DAILY [facility] Last Admin: 09/06/19 08:13 Dose: 2,000 unit Documented by: Enoxaparin Sodium (Lovenox) 40 mg SC DAILY [facility] Last Admin: 09/06/19 08:12 Dose: 40 mg Documented by: Gabapentin (Neurontin) 800 mg PO TID [facility] Last Admin: 09/06/19 06:43 Dose: 800 mg Documented by: Glucagon () 1 mg IM .X1 PRN PRN Reason: Hypoglycemia Sodium Chloride () 1,000 mls @ 75 mls/hr IV .[id number] [facility] Last Admin: 09/06/19 11:17 Dose: 75 mls/hr Documented by: Dextrose (Dextrose 10%-Water) 250 mls @ 999 mls/hr IV .Q16M PRN; Protocol PRN Reason: HYPOGLYCEMIA Insulin Human Lispro (Humalog Kwikpen (Bkc)) 0 unit SC ACHS [facility]; Protocol Last Admin: 09/06/19 11:24 Dose: Not Given Documented by: Lidocaine HCl (Xylocaine Jelly) 0 tube TOPICAL 4X/DAY PRN PRN; Protocol PRN Reason: Mouth pain Last Admin: 09/05/19 21:56 Dose: 1 tube Documented by: Lidocaine/Diphenhydr/Alum/Mg/Simeth () 10 ml PO 4X/DAY PRN PRN PRN Reason: MOUTH IRRITATION Last Admin: 09/04/19 15:46 Dose: 10 ml Documented by: Lisinopril (Zestril) 20 mg PO DAILY [facility] Last Admin: 09/06/19 08:13 Dose: 20 mg Documented by: Magnesium Oxide (Mag-Ox 400) 400 mg PO DAILY [facility] Last Admin: 09/06/19 08:14 Dose: 400 mg Documented by: Ondansetron HCl (Zofran Odt) 4 mg PO Q8H PRN PRN PRN Reason: NAUSEA Last Admin: 09/05/19 08:13 Dose: 4 mg Documented by: Oxycodone HCl (Oxyir) 5 mg PO Q6H PRN PRN PRN Reason: Pain Score 6-10/10 Last Admin: 09/06/19 11:18 Dose: 5 mg Documented by: Pantoprazole Sodium (Protonix) 40 mg PO BID [facility] Last Admin: 09/06/19 08:13 Dose: 40 mg Documented by: Potassium Chloride (K-Dur) 40 meq PO TID [facility] Stop: 09/07/19 14:01 Last Admin: 09/06/19 06:43 Dose: 40 meq Documented by: Sodium Chloride () 10 - 40 ml IV UD PRN PRN Reason: SALINE FLUSH Last Admin: 09/01/19 18:30 Dose: 10 ml Documented by: Sodium Chloride ([place] Nasal [place]) 2 spray NASAL QHS [facility] Last Admin: 09/05/19 21:55 Dose: 2 spray Documented by: Zolpidem Tartrate (Ambien (Generic)) 5 mg PO QHS [facility] Last Admin: 09/05/19 21:53 Dose: 5 mg Documented by: Code Visit Inpatient E&M: [id number] Subs Hosp L2
[2019-09-06 16:00] VITALS: BP 135/78; PULSE 78; RESP 16; TEMP 36.7; O2SAT 96
[2019-09-06 17:10] LABS: Bedside Glucose 100 mg/dL (70-110)
[2019-09-06] MEDS: Acetaminophen 325 MG Tablet 650 MG PO (17:15)
[2019-09-06 20:35] VITALS: BP 122/66; PULSE 74; RESP 18; TEMP 36.8; O2SAT 95
[2019-09-06] MEDS: Zolpidem Tartrate 5 MG Tablet PO (22:35)
[2019-09-06] MEDS: Sodium Chloride 0.65% 1 SPRAY SPRAY.BTL 2 SPRAY NASAL (22:36)
[2019-09-06 22:45] LABS: Bedside Glucose 127 mg/dL (70-110)
[2019-09-07] MEDS: oxyCODONE 5 MG Tablet PO ×2 (01:02→07:31)
[2019-09-07] MEDS: Acetaminophen 325 MG Tablet 650 MG PO ×2 (01:02→07:30)
[2019-09-07] MEDS: 0.9% Normal Saline 1,000 ML 75 ML IV (01:03)
[2019-09-07 03:00] VITALS: BP 155/85; PULSE 75; RESP 18; TEMP 36.3; O2SAT 94
[2019-09-07] MEDS: Gabapentin 400 MG Capsule 800 MG PO (06:35)
[2019-09-07] MEDS: Acyclovir 200 MG Capsule 400 MG PO ×2 (06:36→10:24)
[2019-09-07 08:46] LABS: Absolute Lymphocyte Count 1.31 X10^3/uL (0.83-4.51); Absolute Neutrophil Count 1.8 X10^3/uL (2.0-7.7); Basophil# 0.05 X10^3/uL; Basophil% 1.3 % (0-1); Eosinophil# 0.18 X10^3/uL; Eosinophils% 4.7 % (0-5); Hematocrit 37.2 % (37-47); Hemoglobin 11.9 g/dL (12.0-15.0); Lymphocyte # 1.31 X10^3/ul (4.0); Lymphocyte % 34.1 % (19-41); Mean Corpuscular Hgb 33.1 pg (27.0-32.0); Mean Corpuscular Volume 103.6 fL (81-99); Mean Platelet Vol. 9.9 fl (6.2-12.0); Monocyte# 0.48 X10^3/uL; Monocyte% 12.5 % (0-10); NRBC Flagged by Analyzer 0 % (0-5); Neutrophil # 1.81 X10^3/uL (2.7-7.7); Neutrophil % 47.1 % (47-70); Platelet Count 329 K/mm3 (150-450); RBC Distribution Width CV 17.2 % (11.6-14.6); RBC Distribution Width SD 64.8 fl (35.1-43.9); Red Blood Count 3.59 M/mm3 (4.2-5.4); White Blood Count 3.8 K/mm3 (4.4-11.0)
[2019-09-07 10:02] VITALS: BP 167/78; PULSE 76; RESP 18; TEMP 36.9; O2SAT 97
[2019-09-07 10:09] VITALS: PULSE 80
[2019-09-07] MEDS: Ascorbic Acid 500 MG Tablet 1000 MG PO (10:16)
[2019-09-07] MEDS: Magnesium Oxide 400 MG Tablet PO (10:17)
[2019-09-07] MEDS: Enoxaparin 40 MG/0.4 ML Syringe SC (10:18)
[2019-09-07] MEDS: amLODIPine 10 MG Tablet PO (10:18)
[2019-09-07] MEDS: Pantoprazole Sodium 40 MG Tablet PO (10:18)
[2019-09-07] MEDS: Lisinopril 20 MG Tablet PO (10:24)
[2019-09-07 11:40] LABS: Bedside Glucose 102 mg/dL (70-110)
--- NOTE | 2019-09-07 11:45 | PCM.DC ---
- Discharge Diagnoses Current Active Problems: Current Active and Chronic Problems (Last Reviewed 12/27/18 @ 13:52 by HUANG Scott) Gastroenteritis (Acute) Gingivostomatitis (Acute) You will use the following diet at home:: Calorie/Carbohydrate Controlled (specify 1200, 1400, etc) - carb control diet, Cardiac Discharge Activity: May Not Drive - for 1 week Call your doctor if you observe: Fever of 101 or Higher, Coldness, Increased Pain, Change in Color, Inability to urinate, Inability to have a bowel movement, Using more than one pad per hour, Shortness of breath, Dizziness, Fainting spells, Swelling in the ankles, Chest pain, Prolonged hiccoughing, Increased palpitations (irregular heartbeat), Calf discomfort, Uncontrolled pain Additional Instructions: Follow-up technology and engineering teacher, Dr. Diaz in 2 to 3 weeks Allergies/Adverse Reactions: Allergies rosuvastatin calcium [From Crestor] Allergy (Verified 09/01/19 10:35) Itching simvastatin Allergy (Verified 09/01/19 10:35) Itching Medications to take at Discharge Pantoprazole Sodium [Protonix] 40 mg PO BID 01/22/17 Metformin HCl [Metformin HCl ER] 1,000 mg PO DAILY 05/23/17 gabapentin 400 mg capsule 800 mg PO TID cap 10/11/17 sodium chloride 0.65 % nasal spray aerosol 2 spray INTRANASAL QHS ml 01/09/18 Oxycodone HCl/Acetaminophen [Percocet 5-325] 1 tab PO TID 05/07/18 ascorbic acid (vitamin C) 1,000 mg tablet 1 g PO DAILY tab 10/22/18 cholecalciferol (vitamin D3) 50 mcg (2,000 unit) capsule 2,000 unit PO DAILY 10/22/18 magnesium oxide 400 mg (241.3 mg magnesium) tablet 400 mg PO DAILY tab 10/22/18 vitamin E (dl, acetate) 1,000 unit capsule 1,000 unit PO DAILY 10/22/18 zolpidem 10 mg tablet 5 mg PO QHS tab 10/22/18 metFORMIN HCl [Glucophage] 1,500 mg PO QHS 12/10/18 Amlodipine/Benazepril [Lotrel 10-20 MG Capsule] 1 cap PO DAILY 12/13/18 Magic Mouth Wash 10 ml PO 4X/DAY PRN PRN #300 ml 08/28/19 Ondansetron [Zofran Odt] 4 mg PO Q8H PRN PRN #10 tab 08/31/19 Lisinopril [Zestril] 20 mg PO DAILY #30 tab 09/07/19 Potassium Chloride 10 meq PO DAILY #0 09/07/19 Valacyclovir HCl [Valacyclovir] 1,000 mg PO BID #14 tab 09/07/19 Primary Care Physician: Margarita Drake DO [Primary Care Provider] - Please follow up with your Primary Care Physician in: in 2 weeks Test Results: Test results from this visit will be discussed in further detail at your follow-up appointment, if applicable. Please Follow Up With: Ren Haro MD When: in 2-3 weeks
--- NOTE | 2019-09-07 12:21 | PCM.DC.SUM ---
Discharge Date and Diagnosis - Problem List Patient Problems: Active and Suspected Problems (Last Reviewed 12/27/18 @ 13:52 by HUANG Scott) Gastroenteritis (Acute) Gingivostomatitis (Acute) Date of Admission: 09/01/19 Date of Discharge: 09/07/19 - Primary Discharge Diagnosis Active and Suspected Problems (Last Reviewed 12/27/18 @ 13:52 by HUANG Scott) Gastroenteritis (Acute) Gingivostomatitis (Acute) - Secondary Discharge Diagnosis Chronic Problems (Last Reviewed 12/27/18 @ 13:52 by HUANG Scott) Nocturnal hypoxemia (Chronic) Hyperlipidemia (Chronic) Elevated blood pressure reading without diagnosis of hypertension (Chronic) Other intermediate designer (current) drug therapy (Chronic) Nonrheumatic aortic (valve) insufficiency (Chronic) Nonrheumatic tricuspid (valve) insufficiency (Chronic) Other secondary pulmonary hypertension (Chronic) Nonischemic cardiomyopathy (Chronic) Fatigue (Chronic) Chronic Klebsiella Urine Colonization (Chronic) Takotsubo cardiomyopathy (Chronic) 2013 25%, 2017-60% GI (gastrointestinal bleed) (Chronic) CAD (coronary artery disease) (Chronic) Mild Lumbar spinal stenosis (Chronic) Chiari malformation (Chronic) Insomnia (Chronic) GERD (gastroesophageal reflux disease) (Chronic) Osteoarthritis of left knee (Chronic) Fibromyalgia (Chronic) Depression (Chronic) Anxiety (Chronic) Chronic pain syndrome (Chronic) Sinusitis, chronic (Chronic) Diabetes mellitus type 2, diet-controlled (Chronic) History of total right hip replacement (Chronic) Hypertension (Chronic) chairi malformations/p posterior decompr (Chronic) Hospital Course and Treatment Operations: None Summary of Care Provided: [] This 74-year-old female was admitted with nausea, vomiting and diarrhea and abdominal pain. Patient also has oral ulcer for last 2 weeks. She has nodules in the finger and toe. 1. Acute transverse colitis: Patient is being admitted on [facility] floor. Patient denies any recent antibiotic in July 2019. Patient is on lidocaine gel on the lips and Magic mouthwash. Stool for C. difficile and enteric bacteriology panel are negative. CT abdomen shows transverse colitis. ID has been consulted. Started on IV ceftriaxone and Flagyl. ID agrees with ceftriaxone and Flagyl and if no improvement surgical consult for possible upper and lower endoscopy. As per ID, colonoscopy was normal a year ago. 09/03: Patient still has abdominal pain but no fever or chills. Mild hypokalemia: Potassium being replaced. 09/04: Patient has hypokalemia: Potassium is replaced. Check magnesium and phosphorus. 09/05: Hypokalemia and hypomagnesemia: Potassium magnesium start replaced. Phosphorus level normal. ID discontinued antibiotics. 09/06: Abdominal tenderness has resolved. No fever or chills. On acyclovir 2. Oral ulceration along with nodules in finger/subcutaneous nodule: It seems patient has possible herpes simplex infection or a staph infection. HSV PCR negative. Left hand x-ray ordered. 09/03: Oral ulceration and pharyngeal rash has improved. Patient denies genital ulceration. There is possibility patient might have a small vessel vasculitis like Behchet disease but patient does not complain of blurry vision or eye soreness. 09/04: Oral ulceration is proving. On acyclovir since admission. 09/06: On right forearm pathergy test was done with a sterile needle. Will reevaluate after 24 hours. 09/07: Pathergy test was negative. Discussed with ID. Recommended 7 more days of valacyclovir 1 g twice daily and prescription sent to the pharmacy. Follow-up with ID in 2 to 3 weeks. 3. DM 2 Metformin on hold. On sliding scale insulin with glucose checks. Glucose is well controlled. Metformin resumed. 4 CAD/HTN -Blood pressures and vital signs are stable -Continue with amlodipine/benazepril Prescription for lisinopril 20 mg daily was sent to patient pharmacy Chronic pain syndrome/Chiari malformation -Continue with Percocet and gabapentin -Her symptoms are stable with her chronic management 5. GERD -Stable -Continue with Protonix DVT: SCDs Discharge medication reconciliation done. Discharge follow-up instructions completed. Discharge process discussed with the patient and all questions were answered to patient's satisfaction. Medications and follow-up discussed with the patient and patient's at the bedside. Total time spent, exact 35 minutes on discharge meds reconciliation, examination, review of imaging and blood test and discussion with the patient on follow-up instructions. Clinical Impression(s) from Imaging Studies Abdomen/Pelvis CT 09/01/19 11:49 IMPRESSION: Thickening of the colon, consistent with colitis. Differential considerations are inflammatory, infectious and ischemic disease. Moderate aortoiliac atherosclerosis. Small nonobstructing right renal calculus. Hand X-Ray 09/02/19 15:55 IMPRESSION: Osteopenia with osteoarthritic changes. No acute finding. Patient Problems: Active and Suspected Problems (Last Reviewed 12/27/18 @ 13:52 by HUANG Scott) Gastroenteritis (Acute) Gingivostomatitis (Acute) Subjective: No fever or chills. Blood pressure slightly elevated 167/88. Objective: Oral ulcer has matured. The crust has also cleared up. Patient still has small floor of mouth superficial ulcer in healing stage - Physical Exam Vitals/I&O's: Vital Signs Temp Pulse Resp BP Pulse Ox 98.5 F 80 18 167/78 H 97 09/07/19 10:02 09/07/19 10:09 09/07/19 10:02 09/07/19 10:02 09/07/19 10:02 Oxygen Delivery Method Room Air Weight: 153 lb 0.002 oz Body Mass Index (BMI) 26.2 Finger Stick Blood Glucose 172 Intake and Output for Last 24 Hours 09/05/19 09/06/19 09/07/19 23:59 23:59 23:59 Intake Total 3624.0 / 3624.0 1240 / 1720 1680 / 1680 Output Total 775 / 775 1000 / 1000 Balance 2849.0 / 2849.0 240 / 720 1680 / 1680 General: Alert, Oriented x3, Cooperative HEENT: Atraumatic, PERRLA, EOMI, Normocephalic Oral: - - Superficial laceration over floor of mouth. Lateral pharyngeal wall ulcer has healed. Neck: Supple, No JVD, Negative Carotid Bruits Lungs: Clear to auscultation, Normal air movement, No rhonchi, No wheeze, No rales Cardiovascular: Regular rate, Regular Rhythm, Normal S1, Normal S2, No murmurs Abdomen: Bowel Sounds Present, Soft, Non Tender, Non-Distended Extremities: No edema, Capillary Refill Less than 3 Seconds Skin: No rashes, No breakdown, - - Small nodules in finger. Pathergy test was negative Musculoskeletal: No Tenderness to Palpation of Joints or Extremities, Arthritic Changes Neurological: Cranial nerves II-XII grossly intact, Deep Tendon Reflexes 2+/4 and Symmetrical, Neuro grossly intact Psych/Mental Status: Normal Affect, Appropriate Laboratory Results 09/06/19 17:05: POC Glucose 100 09/06/19 22:33: POC Glucose 127 H 09/07/19 08:15: WBC 3.8 L, RBC 3.59 L, Hgb 11.9 L, Hct 37.2, MCV 103.6 H, MCH 33.1 H, MCHC 32.0, RDW Std Deviation 64.8 H, RDW Coeff of Jaleel 17.2 H, Plt Count 329, MPV 9.9, Immature Gran % (Auto) 0.300, Neut % (Auto) 47.1, Lymph % (Auto) 34.1, [place] % (Auto) 12.5 H, Eos % (Auto) 4.7, Baso % (Auto) 1.3 H, Absolute Neuts (auto) 1.8 L, Absolute Lymphs (auto) 1.31, Nucleated RBC % 0 09/07/19 11:29: POC Glucose 102 Current Medications Acetaminophen (Tylenol) 650 mg PO Q6H PRN PRN PRN Reason: Pain Score 1-3/Temp > 100.7 F Last Admin: 09/07/19 07:30 Dose: 650 mg Documented by: Acyclovir (Zovirax) 400 mg PO 5X/DAY [facility] Last Admin: 09/07/19 10:24 Dose: 400 mg Documented by: Amlodipine Besylate (Norvasc) 10 mg PO DAILY [facility] Last Admin: 09/07/19 10:18 Dose: 10 mg Documented by: Ascorbic Acid (Vitamin C) 1,000 mg PO DAILY [facility] Last Admin: 09/07/19 10:16 Dose: 1,000 mg Documented by: Cholecalciferol (Vitamin D) 2,000 unit PO DAILY [facility] Last Admin: 09/07/19 10:19 Dose: 2,000 unit Documented by: Enoxaparin Sodium (Lovenox) 40 mg SC DAILY [facility] Last Admin: 09/07/19 10:18 Dose: 40 mg Documented by: Gabapentin (Neurontin) 800 mg PO TID [facility] Last Admin: 09/07/19 06:35 Dose: 800 mg Documented by: Glucagon () 1 mg IM .X1 PRN PRN Reason: Hypoglycemia Sodium Chloride () 1,000 mls @ 75 mls/hr IV .[id number] [facility] Last Admin: 09/07/19 01:03 Dose: 75 mls/hr Documented by: Dextrose (Dextrose 10%-Water) 250 mls @ 999 mls/hr IV .Q16M PRN; Protocol PRN Reason: HYPOGLYCEMIA Insulin Human Lispro (Humalog Kwikpen (Bkc)) 0 unit SC ACHS [facility]; Protocol Last Admin: 09/07/19 11:30 Dose: Not Given Documented by: Lidocaine HCl (Xylocaine Jelly) 0 tube TOPICAL 4X/DAY PRN PRN; Protocol PRN Reason: Mouth pain Last Admin: 09/05/19 21:56 Dose: 1 tube Documented by: Lidocaine/Diphenhydr/Alum/Mg/Simeth () 10 ml PO 4X/DAY PRN PRN PRN Reason: MOUTH IRRITATION Last Admin: 09/04/19 15:46 Dose: 10 ml Documented by: Lisinopril (Zestril) 30 mg PO DAILY [facility] Magnesium Oxide (Mag-Ox 400) 400 mg PO DAILY [facility] Last Admin: 09/07/19 10:17 Dose: 400 mg Documented by: Ondansetron HCl (Zofran Odt) 4 mg PO Q8H PRN PRN PRN Reason: NAUSEA Last Admin: 09/05/19 08:13 Dose: 4 mg Documented by: Oxycodone HCl (Oxyir) 5 mg PO Q6H PRN PRN PRN Reason: Pain Score 6-10/10 Last Admin: 09/07/19 07:31 Dose: 5 mg Documented by: Pantoprazole Sodium (Protonix) 40 mg PO 1000,1600 [facility] Last Admin: 09/07/19 10:18 Dose: 40 mg Documented by: Sodium Chloride () 10 - 40 ml IV UD PRN PRN Reason: SALINE FLUSH Last Admin: 09/01/19 18:30 Dose: 10 ml Documented by: Sodium Chloride ([place] Nasal [place]) [facility] Last Admin: 09/06/19 22:36 Dose: 2 spray Documented by: Zolpidem Tartrate (Ambien (Generic)) 5 mg PO QHS [facility] Last Admin: 09/06/19 22:35 Dose: 5 mg Documented by: Discharge Activity: May Not Drive - for 1 week Call your doctor if you observe: Fever of 101 or Higher, Coldness, Increased Pain, Change in Color, Inability to urinate, Inability to have a bowel movement, Using more than one pad per hour, Shortness of breath, Dizziness, Fainting spells, Swelling in the ankles, Chest pain, Prolonged hiccoughing, Increased palpitations (irregular heartbeat), Calf discomfort, Uncontrolled pain Home Medications: Medications to take at Discharge Pantoprazole Sodium [Protonix] 40 mg PO BID 01/22/17 Metformin HCl [Metformin HCl ER] 1,000 mg PO DAILY 05/23/17 gabapentin 400 mg capsule 800 mg PO TID cap 10/11/17 sodium chloride 0.65 % nasal spray aerosol 2 spray INTRANASAL QHS ml 01/09/18 Oxycodone HCl/Acetaminophen [Percocet 5-325] 1 tab PO TID 05/07/18 ascorbic acid (vitamin C) 1,000 mg tablet 1 g PO DAILY tab 10/22/18 cholecalciferol (vitamin D3) 50 mcg (2,000 unit) capsule 2,000 unit PO DAILY 10/22/18 magnesium oxide 400 mg (241.3 mg magnesium) tablet 400 mg PO DAILY tab 10/22/18 vitamin E (dl, acetate) 1,000 unit capsule 1,000 unit PO DAILY 10/22/18 zolpidem 10 mg tablet 5 mg PO QHS tab 10/22/18 metFORMIN HCl [Glucophage] 1,500 mg PO QHS 12/10/18 Amlodipine/Benazepril [Lotrel 10-20 MG Capsule] 1 cap PO DAILY 12/13/18 Magic Mouth Wash 10 ml PO 4X/DAY PRN PRN #300 ml 08/28/19 Ondansetron [Zofran Odt] 4 mg PO Q8H PRN PRN #10 tab 08/31/19 Lisinopril [Zestril] 20 mg PO DAILY #30 tab 09/07/19 Potassium Chloride 10 meq PO DAILY #0 09/07/19 Valacyclovir HCl [Valacyclovir] 1,000 mg PO BID #14 tab 09/07/19 Following Prescrptions Were Given to Patient: Valacyclovir HCl [Valacyclovir] 1,000 mg PO BID #14 tab Transmission Status: Pending to [facility] #30 Lisinopril [Zestril] 20 mg PO DAILY #30 tab Transmission Status: Pending to [facility] #30 Primary Care Physician: Margarita Drake DO [Primary Care Provider] - Please follow up with your Primary Care Physician in: in 2 weeks Please Follow Up With: Ren Haro MD When: in 2-3 weeks Medical Necessity - Tobacco Use Smoking Status: Never smoker Meaningful Use Info Meaningful Use Diagnoses (Choose all that apply): None applicable Code Visit Inpatient E&M: 03998 Disch Hosp
[2019-09-07 16:46] LABS: Bedside Glucose 108 mg/dL (70-110)
--- NOTE | 2019-09-09 14:09 | CASEMGMT ---
INDRA CAMERON DC PHONE CALL DC DATE: 09.07.2019 DC Disposition: Home Diagnosis on Discharge: Gastroenteritis LACE/STRATA: 16/ Intro role of CM and purpose of call to patient via phone. pt states she does not have questions re medications, f/u or instructions. Pt states she has made appts as recommended with PCP and ID. No further questions and no care improvement suggestions. Pt states Iwouldn't go anywhere else. Nasreen CASILLASN RN ACM
== END 2019-09-07 13:16 | disposition home or self-care (01) | DRG 392 ==
LOC: ED 16:25 → MS3 16:26
PROVIDERS: Admitting Provider Family Medicine; Emergency Provider Emergency Medicine; Family Provider Internal Medicine; PCP Internal Medicine; Referring Provider Family Medicine; Visit Provider Internal Medicine
DX: K52.9 Noninfective gastroenteritis and colitis, unspecified (principal); I42.8 Other cardiomyopathies; B00.2 Herpesviral gingivostomatitis and pharyngotonsillitis; I51.81 Takotsubo syndrome; K05.10 Chronic gingivitis, plaque induced; I25.10 Atherosclerotic heart disease of native coronary artery without angina pectoris; I10 Essential (primary) hypertension; K21.9 Gastro-esophageal reflux disease without esophagitis; E11.9 Type 2 diabetes mellitus without complications; E87.6 Hypokalemia; I36.1 Nonrheumatic tricuspid (valve) insufficiency; I35.1 Nonrheumatic aortic (valve) insufficiency; I27.29 Other secondary pulmonary hypertension; E78.5 Hyperlipidemia, unspecified; M79.7 Fibromyalgia; G89.4 Chronic pain syndrome; Z96.641 Presence of right artificial hip joint; F32.9 Major depressive disorder, single episode, unspecified; F41.9 Anxiety disorder, unspecified; Z79.84 Long term (current) use of oral hypoglycemic drugs; E83.42 Hypomagnesemia; M17.12 Unilateral primary osteoarthritis, left knee; E86.0 Dehydration; M17.11 Unilateral primary osteoarthritis, right knee; Z79.899 Other long term (current) drug therapy; Z86.711 Personal history of pulmonary embolism; Z90.710 Acquired absence of both cervix and uterus; Z90.49 Acquired absence of other specified parts of digestive tract
CPT/HCPCS: 36415; 73130; 74177; 80048; 80053; 81001; 82962; 83735; 84100; 85025; 87493; 87506; 93005; 96361; 96374; 96375; 97116; 97162; 97166; 97530; 97802; 97803; 99284; 99285; J7030; Q9967; A4216; J0696; J2405

== ENCOUNTER → 2019-09-17 12:37 | Outpatient (CLI) | payer MEDICARE, OTHER, SELFPAY ==
[2019-09-01 17:29] VITALS: BMI 26.2
[2019-09-17 13:44] LABS: Absolute Neutrophil Count 5.4 X10^3/uL (2.0-7.7); Basophil# 0.09 X10^3/uL; Eosinophil# 0.18 X10^3/uL; Hematocrit 44.8 % (37-47); Hemoglobin 14.2 g/dL (12.0-15.0); Lymphocyte % 26.1 % (19-41); Mean Corp Hgb Conc 31.7 g/dL (32-36); Mean Corpuscular Hgb 32.6 pg (27.0-32.0); Mean Platelet Vol. 10.3 fl (6.2-12.0); Monocyte# 1.04 X10^3/uL; Monocyte% 11.3 % (0-10); NRBC Flagged by Analyzer 0 % (0-5); Neutrophil # 5.39 X10^3/uL (2.7-7.7); Neutrophil % 58.5 % (47-70); Platelet Count 475 K/mm3 (150-450); RBC Distribution Width CV 15.8 % (11.6-14.6); RBC Distribution Width SD 60.4 fl (35.1-43.9); Red Blood Count 4.35 M/mm3 (4.2-5.4); White Blood Count 9.2 K/mm3 (4.4-11.0)
[2019-09-17 13:53] LABS: ALB/GLOB Ratio 1.3 RATIO (0.9-2.4); AST(SGOT) 15 U/L (15-37); Alanine Aminotransfer ALT/SGPT 20 U/L (13-56); Albumin, Serum 4.2 g/dL (3.2-5.0); Alkaline Phosphatase 76 U/L (45-117); Anion Gap 4 (5-15); BUN 9 mg/dL (7-18); BUN/Creat Ratio 9.7 RATIO (10-20); Chloride 104 mmol/L (98-107); Creatinine, Serum 0.93 mg/dL (0.55-1.02); EST Glomerular Filtration Rate 62 mL/min (>60); Est Glom Filt Rate - Afr Amer 75 mL/min (>60); Globulin 3.3 g/dL (2.2-4.2); Glucose 86 mg/dL (74-106); Potassium 3.8 mmol/L (3.5-5.1); Protein, Total 7.5 g/dL (6.4-8.2); Sodium Level 139 mmol/L (136-145)
== END ==
PROVIDERS: Family Provider Internal Medicine; PCP Internal Medicine; Referring Provider Internal Medicine Rheumatology; Visit Provider Internal Medicine Rheumatology
DX: M06.4 Inflammatory polyarthropathy (principal); M79.7 Fibromyalgia; M16.0 Bilateral primary osteoarthritis of hip; Z79.899 Other long term (current) drug therapy
CPT/HCPCS: 36415; 80053; 85025

== ENCOUNTER → 2019-10-21 08:32 | Outpatient (CLI) | payer MEDICARE, OTHER, SELFPAY ==
[2019-09-01 17:29] VITALS: BMI 26.2
[2019-10-21 08:47] LABS: Mucous, Urine 0 SEEN /hpf (<or=2+); Red Blood Cells-Urine 0 SEEN /hpf (0-5); Squamous Epithelial Cells - UA 0 SEEN /hpf (5-10)
[2019-10-21 10:21] LABS: Absolute Lymphocyte Count 1.96 X10^3/uL (0.83-4.51); Absolute Neutrophil Count 5.5 X10^3/uL (2.0-7.7); Basophil# 0.05 X10^3/uL; Basophil% 0.6 % (0-1); Eosinophil# 0.17 X10^3/uL; Hematocrit 43.3 % (37-47); Hemoglobin 13.9 g/dL (12.0-15.0); Lymphocyte # 1.96 X10^3/ul (4.0); Lymphocyte % 23.3 % (19-41); Mean Corp Hgb Conc 32.1 g/dL (32-36); Mean Corpuscular Hgb 32.7 pg (27.0-32.0); Mean Corpuscular Volume 101.9 fL (81-99); Mean Platelet Vol. 10.1 fl (6.2-12.0); Monocyte# 0.75 X10^3/uL; Monocyte% 8.9 % (0-10); NRBC Flagged by Analyzer 0 % (0-5); Neutrophil # 5.47 X10^3/uL (2.7-7.7); Platelet Count 278 K/mm3 (150-450); RBC Distribution Width CV 14.7 % (11.6-14.6); RBC Distribution Width SD 55.1 fl (35.1-43.9); Red Blood Count 4.25 M/mm3 (4.2-5.4); White Blood Count 8.4 K/mm3 (4.4-11.0)
[2019-10-21 10:28] LABS: Color, Urine Yellow (Yellow); Glucose, Dipstick Normal (Normal); Ketone-Dipstick Negative (Negative); Leukocyte Esterase-Dipstick 500 /ul (Negative); Nitrite-Dipstick Negative (Negative); Occult Blood-Urine 10 /ul (Negative); Protein-Dipstick Negative (Negative); Specific Gravity, Urine 1.015 (1.002-1.030); Urine Bilirubin Dipstick Negative (Negative); Urine Clarity Sl. Cloudy (Clear); Urine Urobilinogen Normal (Normal); Urine pH 6.5 (5.0 - 8.0)
[2019-10-21 10:41] LABS: Vitamin B12 > 2000 pg/mL (211-911)
[2019-10-21 10:49] LABS: Bacteria 4+ /hpf (None Seen); White Blood Cells 10-25 SEEN /hpf (0-5)
[2019-10-21 10:58] LABS: Microalbumin,Random Urine 17.7 mg/L (NO RANGE EST.); Microalbumin:Creatinine Ratio 16.1 mg/g CRE (<30 mg/g CRE)
[2019-10-21 11:02] LABS: ALB/GLOB Ratio 1.5 RATIO (0.9-2.4); AST(SGOT) 12 U/L (15-37); Alanine Aminotransfer ALT/SGPT 22 U/L (13-56); Albumin, Serum 4.3 g/dL (3.2-5.0); Alkaline Phosphatase 60 U/L (45-117); Anion Gap 9 (5-15); BUN 11 mg/dL (7-18); BUN/Creat Ratio 12.1 RATIO (10-20); Chloride 103 mmol/L (98-107); Cholesterol 244 mg/dL (200); Creatinine, Serum 0.91 mg/dL (0.55-1.02); EST Glomerular Filtration Rate 64 mL/min (>60); Est Glom Filt Rate - Afr Amer 77 mL/min (>60); Globulin 2.8 g/dL (2.2-4.2); Glucose 111 mg/dL (74-106); High Density Lipoprotein 51 mg/dL; Protein, Total 7.1 g/dL (6.4-8.2); Sodium Level 139 mmol/L (136-145); Thyroid Stim Hormone (TSH) 3.05 uIU/mL (0.358-3.74); Triglycerides 209 mg/dL; Very Low Density Lipoprotein 42 mg/dL (5-40)
== END ==
PROVIDERS: PCP Internal Medicine; Referring Provider Internal Medicine; Visit Provider Internal Medicine
DX: I10 Essential (primary) hypertension (principal); I25.10 Atherosclerotic heart disease of native coronary artery without angina pectoris; E78.2 Mixed hyperlipidemia; D51.9 Vitamin B12 deficiency anemia, unspecified; E11.9 Type 2 diabetes mellitus without complications; G25.81 Restless legs syndrome; F41.9 Anxiety disorder, unspecified; M21.40 Flat foot [pes planus] (acquired), unspecified foot; K21.9 Gastro-esophageal reflux disease without esophagitis; M16.0 Bilateral primary osteoarthritis of hip; M15.9 Polyosteoarthritis, unspecified; M79.7 Fibromyalgia; M06.4 Inflammatory polyarthropathy; Z85.43 Personal history of malignant neoplasm of ovary; Z79.899 Other long term (current) drug therapy
CPT/HCPCS: 36415; 80053; 80061; 81001; 82043; 82570; 82607; 84443; 85025

== ENCOUNTER → 2020-01-20 08:16 | Outpatient (CLI) | payer MEDICARE, OTHER, SELFPAY ==
[2019-12-03 15:52] VITALS: BMI 27.8
[2020-01-20 10:18] LABS: Absolute Lymphocyte Count 1.71 X10^3/uL (0.83-4.51); Absolute Neutrophil Count 3.5 X10^3/uL (2.0-7.7); Basophil# 0.05 X10^3/uL; Basophil% 0.8 % (0-1); Eosinophil# 0.12 X10^3/uL; Hematocrit 39.4 % (37-47); Hemoglobin 12.7 g/dL (12.0-15.0); Lymphocyte # 1.71 X10^3/ul (4.0); Lymphocyte % 28.2 % (19-41); Mean Corp Hgb Conc 32.2 g/dL (32-36); Mean Corpuscular Hgb 32.7 pg (27.0-32.0); Mean Corpuscular Volume 101.5 fL (81-99); Monocyte# 0.63 X10^3/uL; Monocyte% 10.4 % (0-10); NRBC Flagged by Analyzer 0 % (0-5); Neutrophil # 3.53 X10^3/uL (2.7-7.7); Neutrophil % 58.3 % (47-70); Platelet Count 290 K/mm3 (150-450); RBC Distribution Width CV 13.5 % (11.6-14.6); RBC Distribution Width SD 49.7 fl (35.1-43.9); Red Blood Count 3.88 M/mm3 (4.2-5.4); White Blood Count 6.1 K/mm3 (4.4-11.0)
[2020-01-20 10:20] LABS: ALB/GLOB Ratio 1.3 RATIO (0.9-2.4); AST(SGOT) 15 U/L (15-37); Alanine Aminotransfer ALT/SGPT 24 U/L (13-56); Albumin, Serum 3.9 g/dL (3.2-5.0); Alkaline Phosphatase 65 U/L (45-117); Anion Gap 8 (5-15); BUN 18 mg/dL (7-18); BUN/Creat Ratio 20.6 RATIO (10-20); Calcium,Total 8.5 mg/dL (8.5-10.1); Chloride 107 mmol/L (98-107); Creatinine, Serum 0.87 mg/dL (0.55-1.02); EST Glomerular Filtration Rate 67 mL/min (>60); Est Glom Filt Rate - Afr Amer 81 mL/min (>60); Globulin 2.9 g/dL (2.2-4.2); Glucose 158 mg/dL (74-106); Protein, Total 6.8 g/dL (6.4-8.2); Sodium Level 140 mmol/L (136-145)
== END ==
PROVIDERS: PCP Internal Medicine; Referring Provider Internal Medicine Rheumatology; Visit Provider Internal Medicine Rheumatology
DX: M06.4 Inflammatory polyarthropathy (principal); M79.7 Fibromyalgia; M16.0 Bilateral primary osteoarthritis of hip; K21.9 Gastro-esophageal reflux disease without esophagitis; M21.40 Flat foot [pes planus] (acquired), unspecified foot; F41.9 Anxiety disorder, unspecified; I10 Essential (primary) hypertension; E11.9 Type 2 diabetes mellitus without complications; G25.81 Restless legs syndrome; I42.9 Cardiomyopathy, unspecified; Z85.43 Personal history of malignant neoplasm of ovary; Z79.899 Other long term (current) drug therapy
CPT/HCPCS: 36415; 80053; 85025

== ENCOUNTER → 2020-03-16 09:00 | Outpatient (CLI) | payer MEDICARE, OTHER, SELFPAY ==
[2020-03-16 08:37] VITALS: BMI 26.2
== END ==
PROVIDERS: PCP Internal Medicine; Referring Provider Physician Assistant; Visit Provider Physician Assistant
DX: Z20.828 Contact with and (suspected) exposure to other viral communicable diseases (principal); J02.9 Acute pharyngitis, unspecified
CPT/HCPCS: 87081; 87635; G2023; U0003

== ENCOUNTER 2020-04-28 18:18 | Emergency (ER) | payer MEDICARE, OTHER, SELFPAY ==
[2020-03-16 08:37] VITALS: BMI 26.2
[2020-04-28 18:19] VITALS: BP 143/91; PULSE 106; RESP 17; TEMP 36.1; O2SAT 99; BMI 25.7
--- NOTE | 2020-04-28 19:25 | ED.VIS.GEN ---
History of Present Illness Chief Complaint: Nausea/Vomiting/Diarrhea Onset: Today Narrative: 74-year-old female with past medical history of hypertension presents with concern for nausea vomiting and diarrhea over the past 48 hours. States she has not been able to tolerate liquids or solids. States that the stools have been watery. Denies any recent hospitalizations or antibiotic therapy. Denies any urinary symptoms. Denies any fever or chills. Does admit to some upper and mid epigastric aching. No relieving or worsening factors. Concern for dehydration. No sick contacts. Prior similar symptoms: Yes Past Medical History - Allergies and Home Meds Allergies/Adverse Reactions: Allergies rosuvastatin calcium [From Crestor] Allergy (Verified 03/16/20 08:30) Itching simvastatin Allergy (Verified 03/16/20 08:30) Itching atorvastatin Adverse Reaction (Verified 03/16/20 08:30) nausea Primary Care Physician: Margarita Drake DO [Primary Care Provider] - Past Medical History: - - Hypertension Surgical History: appendectomy, cholecystectomy, hysterectomy, total hip arthroplasty - Right 2003, revision 2013., total knee arthroplasty - Right, 08/19/2014., - - Brain Surgery for Budd Chiari x 2, Bilateral carpal tunnel release, cervical surgery 12/2013, Laminectomy 2000, 7 back surgeries Lives: Spouse/ Significant Other Smoking Status: Never smoker Alcohol: None Drugs: None - Family History Maternal Family History: Family History (Last Reviewed 03/16/20 @ 08:37 by Camila Caballero) Mother Breast cancer Diabetes Carcinoma, lung Father Carcinoma, lung Family History: Reports: Cancer - breast cancer Paternal Family History: Family History (Last Reviewed 03/16/20 @ 08:37 by Camila Caballero) Mother Breast cancer Diabetes Carcinoma, lung Father Carcinoma, lung Family History: Reports: Cancer, Pulmonary Disease - Emphysema Review of Systems General: Denies: Chills, Fever, Sweats Eyes: Denies: Visual changes - bilaterally, Diplopia ENT: Denies: Rhinorrhea, Sore throat Cardiovascular: Denies: Chest pain, Palpitations Respiratory: Denies: Dyspnea, Cough, Dyspnea on exertion Gastrointestinal: Reports: Abdominal pain, Nausea, Vomiting, Diarrhea. Denies: Melena, Hematochezia Genitourinary: Denies: Dysuria, Hematuria, Frequency Musculoskeletal: Denies: Back pain, Extremity Pain Skin: Denies: Rash, Wounds Neurological: Denies: Headache, Weakness, Numbness Physical Exam Vital Signs/Narrative: Vital Signs Temp Pulse Resp BP Pulse Ox 04/28/20 18:19 96.9 F L 106 H 17 143/91 H 99 Inital Vital Signs reviewed: Yes General: Well nourished, Well developed, No Acute Distress Head: Normocephalic, Atraumatic Eyes: Perrl, EOMI ENT: Moist mucous membranes, No rhinorrhea Neck: Supple, Nontender Cardiovascular: Regular rate, Regular rhythm, No murmurs Respiratory: No distress, CTA bilaterally, Chest nontender Abdomen: Soft, Nondistended, Normal bowel sounds, - - Mild tenderness to palpation in the mid abdomen. No rebound or guarding. Back: Nontender, Normal Inspection Extremities: Nontender, No edema Skin: Normal color, No rash Neurological: Alert, Oriented x3, Cranial nerves II-XII grossly intact, Normal Strength, Normal Sensation Psychological: Normal affect, Normal Mood Diagnostic/Tx/Re-eval Clinical Impression(s) from Imaging Studies Abdomen/Pelvis CT 04/28/20 20:35 IMPRESSION: No acute abdominal or pelvic pathology. Electronically Signed: Jose Patricia, at 21:04 EDT Tel , Service support , Laboratory Data 04/28/20 04/28/20 04/28/20 19:50 19:50 21:00 WBC 7.9 RBC 4.49 Hgb 14.5 Hct 43.1 MCV 96.0 MCH 32.3 H MCHC 33.6 RDW Std Deviation 44.3 H RDW Coeff of Jaleel 12.6 Plt Count 323 MPV 9.5 Immature Gran % (Auto) 0.400 Neut % (Auto) 74.9 H Lymph % (Auto) 14.7 L [place] % (Auto) 9.3 Eos % (Auto) 0.4 Baso % (Auto) 0.3 Absolute Neuts (auto) 5.9 Absolute Lymphs (auto) 1.16 Nucleated RBC % 0 Sodium 138 Potassium 3.8 Chloride 102 Carbon Dioxide 30.0 Anion Gap 6 BUN 8 Creatinine 0.76 Estim Creat Clear Calc 43.07 Est GFR (MDRD) Af Amer 95 Est GFR (MDRD) Non-Af 79 BUN/Creatinine Ratio 10.5 Glucose 132 H Calcium 8.6 Total Bilirubin 0.60 AST 36 ALT 31 Alkaline Phosphatase 74 Total Protein 7.7 Albumin 3.9 Globulin 3.8 Albumin/Globulin Ratio 1.0 Lipase 35 L Urine Color Yellow Urine Clarity Sl. Cloudy Urine pH 7.0 Ur Specific [place] 1.005 Urine Protein 15 H Urine Glucose (UA) Normal Urine Ketones Negative Urine Occult Blood 25 H Urine Nitrite Negative Urine Bilirubin Negative Urine Urobilinogen Normal Ur Leukocyte Esterase 500 H Urine RBC 0 SEEN Urine WBC 50-100 SEEN Ur Squamous Epith Cells 0-5 SEEN Urine Bacteria RARE Urine Mucus 0 SEEN - Medical Decision Making Patient appears well nontoxic. Vital signs within normal limits. CT negative. Patient given Zofran and 1 L fluid bolus. Found to have UTI will be treated with Keflex. Sent home with Zofran. Patient feeling much improved. Discharged home in stable condition. 9 impression: 1. Nausea and vomiting 2. Diarrhea 3. UTI ED Disposition - Plan for ED Patient: Disposition: Home or Assisted Living Instructions: ED Vomiting and Diarrhea Nonspecific Adult Prescriptions: Cephalexin [Keflex] 500 mg PO Q12 #14 cap Prescription Printed Ondansetron [Zofran Odt] 4 mg PO Q8H PRN PRN #10 tab PRN Reason: Nausea Prescription Printed Referrals: Margarita Drake DO [Primary Care Provider] -
[2020-04-28] MEDS: 0.9% Normal Saline 1,000 ML 1000 ML IV (19:51)
[2020-04-28] MEDS: Ondansetron 4 MG/2 ML Vial IV (19:52)
[2020-04-28 19:58] LABS: Absolute Lymphocyte Count 1.16 X10^3/uL (0.83-4.51); Absolute Neutrophil Count 5.9 X10^3/uL (2.0-7.7); Basophil# 0.02 X10^3/uL; Basophil% 0.3 % (0-1); Eosinophil# 0.03 X10^3/uL; Eosinophils% 0.4 % (0-5); Hematocrit 43.1 % (37-47); Hemoglobin 14.5 g/dL (12.0-15.0); Lymphocyte # 1.16 X10^3/ul (4.0); Lymphocyte % 14.7 % (19-41); Mean Corp Hgb Conc 33.6 g/dL (32-36); Mean Corpuscular Hgb 32.3 pg (27.0-32.0); Mean Platelet Vol. 9.5 fl (6.2-12.0); Monocyte# 0.73 X10^3/uL; Monocyte% 9.3 % (0-10); NRBC Flagged by Analyzer 0 % (0-5); Neutrophil % 74.9 % (47-70); Platelet Count 323 K/mm3 (150-450); RBC Distribution Width CV 12.6 % (11.6-14.6); RBC Distribution Width SD 44.3 fl (35.1-43.9); Red Blood Count 4.49 M/mm3 (4.2-5.4); White Blood Count 7.9 K/mm3 (4.4-11.0)
[2020-04-28 20:19] LABS: AST(SGOT) 36 U/L (15-37); Alanine Aminotransfer ALT/SGPT 31 U/L (13-56); Albumin, Serum 3.9 g/dL (3.2-5.0); Alkaline Phosphatase 74 U/L (45-117); Anion Gap 6 (5-15); BUN 8 mg/dL (7-18); BUN/Creat Ratio 10.5 RATIO (10-20); Calcium,Total 8.6 mg/dL (8.5-10.1); Chloride 102 mmol/L (98-107); Creatinine, Serum 0.76 mg/dL (0.55-1.02); EST Glomerular Filtration Rate 79 mL/min (>60); Est Glom Filt Rate - Afr Amer 95 mL/min (>60); Estimated Creatinine Clearance 43.07 ml/min; Globulin 3.8 g/dL (2.2-4.2); Glucose 132 mg/dL (74-106); Lipase 35 U/L (73-393); Potassium 3.8 mmol/L (3.5-5.1); Protein, Total 7.7 g/dL (6.4-8.2); Sodium Level 138 mmol/L (136-145)
[2020-04-28 20:20] VITALS: BP 143/91; PULSE 106; RESP 17; TEMP 36.1; O2SAT 99
--- NOTE | 2020-04-28 20:35 | CT_ITS ---
STUDY: CT ABDOMEN AND PELVIS WITH CONTRAST REASON FOR EXAM: Female, 74 years old. Abdominal pain. Nausea and vomiting. RADIATION DOSAGE (If Supplied By Facility): CTDIvol = ( 16.02 ) mGy, DLP = ( 786.39 ) mGycm TECHNIQUE: Transaxial images were obtained from the dome of the diaphragm to the symphysis pubis without oral contrast. 100 ml of ISOVUE-370 contrast was administered. Sagittal and coronal images were reconstructed. Individualized dose optimization techniques were used for this CT. COMPARISON: 09/01/19 FINDINGS: There is atelectasis at the lung bases. The visualized portions of the heart and pericardium are within normal limits. The patient is status post cholecystectomy. The liver is within normal limits. There are no suspicious hepatic lesions. The spleen is normal in size. The pancreas is within normal limits. The adrenal glands are within normal limits. There are no renal or ureteral stones. There is no hydronephrosis. There is a stable cyst in the left kidney. There are no right renal lesions. Normal visualized stomach. There is no bowel obstruction or inflammation. The patient is status post appendectomy. The aorta is normal in caliber. There is no abdominal or pelvic free air, free fluid, fluid collection or lymphadenopathy. There are no destructive osseous lesions. There are stable postsurgical and degenerative changes in the spine. The patient is status post right hip arthroplasty. CT/Abdomen/Pelvis W IV Cont ONLY IMPRESSION: No acute abdominal or pelvic pathology. Electronically Signed: Jose Patricia, at 21:04 EDT Tel , Service support ,
[2020-04-28 21:06] LABS: Mucous, Urine 0 SEEN /hpf (<or=2+); Red Blood Cells-Urine 0 SEEN /hpf (0-5)
[2020-04-28 21:07] LABS: Color, Urine Yellow (Yellow); Glucose, Dipstick Normal (Normal); Ketone-Dipstick Negative (Negative); Leukocyte Esterase-Dipstick 500 /ul (Negative); Nitrite-Dipstick Negative (Negative); Occult Blood-Urine 25 /ul (Negative); Protein-Dipstick 15 mg/dl (Negative); Specific Gravity, Urine 1.005 (1.002-1.030); Urine Bilirubin Dipstick Negative (Negative); Urine Clarity Sl. Cloudy (Clear); Urine Urobilinogen Normal (Normal)
[2020-04-28 21:13] LABS: Bacteria RARE /hpf (None Seen); Squamous Epithelial Cells - UA 0-5 SEEN /hpf (5-10); White Blood Cells 50-100 SEEN /hpf (0-5)
[2020-04-28] MEDS: Cephalexin 250 MG Capsule 500 MG PO (21:38)
[2020-04-28 21:51] VITALS: BP 132/68; PULSE 85; RESP 18; O2SAT 98
== END 2020-04-28 21:51 | disposition home or self-care (01) ==
PROVIDERS: Emergency Provider Emergency Medicine; PCP Internal Medicine
DX: R11.2 Nausea with vomiting, unspecified (principal); R19.7 Diarrhea, unspecified
CPT/HCPCS: 74177; 80053; 81001; 83690; 85025; 96361; 96374; 99284; J7030; Q9967; A4216; J2405

== ENCOUNTER → 2020-05-27 08:44 | Outpatient (CLI) | payer MEDICARE, OTHER, SELFPAY ==
[2020-04-28 18:19] VITALS: BMI 25.7
--- NOTE | 2020-05-27 08:50 | ART_ITS ---
Reason For Study: PVD Procedure A bilateral lower extremity continuous wave Doppler with analog waveform analysis,segmental pressures,and ankle brachial indexes without exercise. Left Segmental Pressures Left brachial= 145mmHg. Left posterior tibial artery = 185mmHg. Left dorsalis pedis artery = 177mmHg. Left digit = 149 mmHg. The left dorsalis pedis waveforms are triphasic. The left posterior tibial artery waveforms are triphasic. Right Segmental Pressures Right brachial= 147mmHg. Right posterior tibial artery = 179mmHg. Right dorsalis pedis artery = 161mmHg. Right digit = 141 mmHg. The right dorsalis pedis waveforms are triphasic. The right posterior tibial artery waveforms are triphasic. Indices The right ankle brachial index by the dorsalis pedis is 1.10. The right ankle brachial index by the posterior tibial artery is 1.22. The right digital-brachial index is 0.96. The left ankle brachial index by the dorsalis pedis is 1.20. The left ankle brachial index by the posterior tibial artery is 1.26. The left digital-brachial index is 1.01. Interpretation Summary Triphasic Doppler waveforms are noted at ankle level bilaterally. Pulse-volume recording waveform amplitudes are diminished at digital level bilaterally, but satisfactory at low-thigh, calf, and ankle levels bilaterally. Resting ankle-brachial indices are normal bilaterally. Digital-brachial indices are normal bilaterally. There is no evidence of significant arterial occlusive disease in the lower extremities bilaterally. Ordering Physician: Parminder Sung Referring Physician: Margarita Drake M.D. Performed By: Belgica Parker RVT and Student
== END ==
PROVIDERS: PCP Internal Medicine; Referring Provider Podiatrist; Visit Provider Podiatrist
DX: I73.9 Peripheral vascular disease, unspecified (principal)
CPT/HCPCS: 93923

== ENCOUNTER 2020-06-11 08:15 | Inpatient (IN) | payer MEDICARE, OTHER, SELFPAY ==
[2020-06-11] VITALS (9 sets, daily range): BP systolic 138–155; BP diastolic 67–94; PULSE 55–106; RESP 16–18; TEMP 36.3–36.6; O2SAT 95–97; BMI 24.0
--- NOTE | 2020-06-11 08:17 | ED.VIS.GEN ---
History of Present Illness Chief Complaint: Abd Pain Informant: Patient Narrative: 74-year-old female presenting with left lower quadrant abdominal pain as well as nausea and vomiting. She states she has had diarrhea for about a week. She is unsure if she had a fever but she does have sweats at times. Denies urinary complaints but states that she fell bad like this 1 time with a UTI. No history of diverticulitis. No vaginal complaints. - Past Medical History (1) Essential (primary) hypertension Status: Chronic (2) Hyperlipidemia Status: Chronic (3) Nonobstructive atherosclerosis of coronary artery Status: Chronic (4) Takotsubo cardiomyopathy Status: Chronic Comment: 2013 25%, 2017-60% (5) Hx pulmonary embolism Status: Resolved Past Medical History - Allergies and Home Meds Allergies/Adverse Reactions: Allergies rosuvastatin calcium [From Crestor] Allergy (Verified 06/11/20 08:16) Itching simvastatin Allergy (Verified 06/11/20 08:16) Itching atorvastatin Adverse Reaction (Verified 06/11/20 08:16) nausea Prior records reviewed: Yes Past Medical History: - - Reviewed in problem list Surgical History: appendectomy, cholecystectomy, hysterectomy, total hip arthroplasty - Right 2003, revision 2013., total knee arthroplasty - Right, 08/19/2014., - - Brain Surgery for Budd Chiari x 2, Bilateral carpal tunnel release, cervical surgery 12/2013, Laminectomy 2000, 7 back surgeries Smoking Status: Never smoker - Family History Maternal Family History: Family History (Last Reviewed 03/16/20 @ 08:37 by Camila Caballero) Mother Breast cancer Diabetes Carcinoma, lung Father Carcinoma, lung Family History: Reports: Cancer - breast cancer Paternal Family History: Family History (Last Reviewed 03/16/20 @ 08:37 by Camila Caballero) Mother Breast cancer Diabetes Carcinoma, lung Father Carcinoma, lung Family History: Reports: Cancer, Pulmonary Disease - Emphysema Review of Systems General: Reports: Chills. Denies: Fever, Malaise Eyes: Denies: Visual changes - bilaterally, Diplopia ENT: Denies: Rhinorrhea, Sore throat Cardiovascular: Denies: Chest pain, Palpitations Respiratory: Denies: Dyspnea, Cough, Dyspnea on exertion Gastrointestinal: Reports: Abdominal pain, Nausea, Vomiting, Diarrhea. Denies: Constipation, Melena Genitourinary: Denies: Dysuria, Hematuria Musculoskeletal: Denies: Back pain, Extremity Pain Skin: Denies: Rash, Wounds Neurological: Reports: Headache. Denies: Weakness, Parasthesia Physical Exam Inital Vital Signs reviewed: Yes General: Well nourished, No Acute Distress Head: Normocephalic, Atraumatic Eyes: Perrl, EOMI. Negative for: Scleral icterus ENT: Dry mucous membranes Cardiovascular: Regular rate, Regular rhythm Respiratory: No distress, CTA bilaterally Abdomen: Soft, Nondistended, Tender - Tenderness to palpation left lower quadrant. Abdomen is non-peritoneal. Extremities: Nontender, No edema Skin: Normal color, No rash Neurological: Alert, Oriented x3 Psychological: Normal affect, Normal Mood Diagnostic/Tx/Re-eval Clinical Impression(s) from Imaging Studies Abdomen/Pelvis CT 06/11/20 09:15 IMPRESSION: Minimal nonspecific colonic wall hyperemia without significant wall thickening (potential early uncomplicated colitis) Nonemergent findings, as above Electronically Signed: Edward Curiel DO at 9:43 EDT Tel , Service support , Laboratory Data 06/11/20 06/11/20 06/11/20 08:29 08:35 08:35 WBC 11.4 H RBC 5.16 Hgb 16.1 H Hct 48.8 H MCV 94.6 MCH 31.2 MCHC 33.0 RDW Std Deviation 43.2 RDW Coeff of Jaleel 12.4 Plt Count 380 MPV 9.7 Immature Gran % (Auto) 0.600 Neut % (Auto) 71.7 H Lymph % (Auto) 19.9 [place] % (Auto) 6.5 Eos % (Auto) 0.9 Baso % (Auto) 0.4 Absolute Neuts (auto) 8.2 H Absolute Lymphs (auto) 2.27 Nucleated RBC % 0 Sodium 137 Potassium 2.6 L* Chloride 98 Carbon Dioxide 29.0 Anion Gap 10 BUN 8 Creatinine 0.87 Estim Creat Clear Calc 47.50 Est GFR (MDRD) Af Amer 81 Est GFR (MDRD) Non-Af 67 BUN/Creatinine Ratio 9.2 L Glucose 132 H Calcium 8.7 Magnesium Total Bilirubin 0.50 AST 13 L ALT 37 Alkaline Phosphatase 97 Total Protein 7.9 Albumin 3.9 Globulin 4.0 Albumin/Globulin Ratio 1.0 Urine Color Straw Urine Clarity Clear Urine pH 6.5 Ur Specific [place] 1.005 Urine Protein Negative Urine Glucose (UA) Normal Urine Ketones Negative Urine Occult Blood Negative Urine Nitrite Negative Urine Bilirubin Negative Urine Urobilinogen Normal Ur Leukocyte Esterase 500 H Urine RBC 0-5 SEEN Urine WBC 5-10 SEEN Ur Squamous Epith Cells 10-25 SEEN Urine Bacteria 0 SEEN Urine Mucus 0 SEEN 06/11/20 08:35 WBC RBC Hgb Hct MCV MCH MCHC RDW Std Deviation RDW Coeff of Jaleel Plt Count MPV Immature Gran % (Auto) Neut % (Auto) Lymph % (Auto) [place] % (Auto) Eos % (Auto) Baso % (Auto) Absolute Neuts (auto) Absolute Lymphs (auto) Nucleated RBC % Sodium Potassium Chloride Carbon Dioxide Anion Gap BUN Creatinine Estim Creat Clear Calc Est GFR (MDRD) Af Amer Est GFR (MDRD) Non-Af BUN/Creatinine Ratio Glucose Calcium Magnesium 1.4 L Total Bilirubin AST ALT Alkaline Phosphatase Total Protein Albumin Globulin Albumin/Globulin Ratio Urine Color Urine Clarity Urine pH Ur Specific [place] Urine Protein Urine Glucose (UA) Urine Ketones Urine Occult Blood Urine Nitrite Urine Bilirubin Urine Urobilinogen Ur Leukocyte Esterase Urine RBC Urine WBC Ur Squamous Epith Cells Urine Bacteria Urine Mucus - Medical Decision Making 74-year-old female presenting with left lower quadrant pain. Lab work shows a slight leukocytosis. Her electrolytes are abnormal however she is hypokalemic at 2.6 and hypomagnesemic at 1.4. She was given 4 mg of magnesium and 40 mEq of IV potassium. She is continued to have pain after given morphine and required a second dose. Given that she will need electrolyte replacement and she is having continued pain with her diverticulitis on CT I felt she warranted admission for repletion of the electrolytes. After speaking with the hospitalist who recommended giving her p.o. potassium and she would replete this through the IV. Patient amenable to admission. She will be treated with antibiotics upstairs. Impression: 1. Acute uncomplicated diverticulitis 2. Abdominal pain 3. Hypokalemia 4. Hypomagnesemia ED Disposition - Plan for ED Patient: Disposition: Acute Care [facility]
[2020-06-11 08:36] LABS: Bacteria 0 SEEN /hpf (None Seen); Mucous, Urine 0 SEEN /hpf (<or=2+)
[2020-06-11 08:38] LABS: Color, Urine Straw (Yellow); Glucose, Dipstick Normal (Normal); Ketone-Dipstick Negative (Negative); Leukocyte Esterase-Dipstick 500 /ul (Negative); Nitrite-Dipstick Negative (Negative); Occult Blood-Urine Negative /ul (Negative); Protein-Dipstick Negative (Negative); Specific Gravity, Urine 1.005 (1.002-1.030); Urine Bilirubin Dipstick Negative (Negative); Urine Clarity Clear (Clear); Urine Urobilinogen Normal (Normal); Urine pH 6.5 (5.0 - 8.0)
[2020-06-11 08:43] LABS: Absolute Lymphocyte Count 2.27 X10^3/uL (0.83-4.51); Absolute Neutrophil Count 8.2 X10^3/uL (2.0-7.7); Basophil# 0.04 X10^3/uL; Basophil% 0.4 % (0-1); Eosinophils% 0.9 % (0-5); Hematocrit 48.8 % (37-47); Hemoglobin 16.1 g/dL (12.0-15.0); Lymphocyte # 2.27 X10^3/ul (4.0); Lymphocyte % 19.9 % (19-41); Mean Corpuscular Hgb 31.2 pg (27.0-32.0); Mean Corpuscular Volume 94.6 fL (81-99); Mean Platelet Vol. 9.7 fl (6.2-12.0); Monocyte# 0.74 X10^3/uL; Monocyte% 6.5 % (0-10); NRBC Flagged by Analyzer 0 % (0-5); Neutrophil # 8.16 X10^3/uL (2.7-7.7); Neutrophil % 71.7 % (47-70); Platelet Count 380 K/mm3 (150-450); RBC Distribution Width CV 12.4 % (11.6-14.6); RBC Distribution Width SD 43.2 fl (35.1-43.9); Red Blood Count 5.16 M/mm3 (4.2-5.4); White Blood Count 11.4 K/mm3 (4.4-11.0)
[2020-06-11 08:45] LABS: Red Blood Cells-Urine 0-5 SEEN /hpf (0-5); Squamous Epithelial Cells - UA 10-25 SEEN /hpf (5-10); White Blood Cells 5-10 SEEN /hpf (0-5)
[2020-06-11] MEDS: 0.9% Normal Saline 1,000 ML 999 ML IV (08:46)
[2020-06-11] MEDS: Morphine 4 MG/ML Syringe IV ×2 (08:47→10:58)
[2020-06-11] MEDS: Ondansetron 4 MG/2 ML Vial IM (08:47)
[2020-06-11 09:06] LABS: AST(SGOT) 13 U/L (15-37); Alanine Aminotransfer ALT/SGPT 37 U/L (13-56); Albumin, Serum 3.9 g/dL (3.2-5.0); Alkaline Phosphatase 97 U/L (45-117); Anion Gap 10 (5-15); BUN 8 mg/dL (7-18); BUN/Creat Ratio 9.2 RATIO (10-20); Calcium,Total 8.7 mg/dL (8.5-10.1); Chloride 98 mmol/L (98-107); Creatinine, Serum 0.87 mg/dL (0.55-1.02); EST Glomerular Filtration Rate 67 mL/min (>60); Est Glom Filt Rate - Afr Amer 81 mL/min (>60); Glucose 132 mg/dL (74-106); Potassium 2.6 mmol/L (3.5-5.1); Protein, Total 7.9 g/dL (6.4-8.2); Sodium Level 137 mmol/L (136-145)
--- NOTE | 2020-06-11 09:15 | CT_ITS ---
STUDY: CT ABDOMEN AND PELVIS WITH CONTRAST REASON FOR EXAM: Female, 74 years old. LLQ PAIN WITH DIARRHEA X 5 DAYS.UTERINE CA. HX OF APPY GALLBLADDER HYSTERECTOMY RADIATION DOSAGE (If Supplied By Facility): CTDIvol = ( 13.42 ) mGy, DLP = ( 512.74 ) mGycm TECHNIQUE: Transaxial images were obtained from the dome of the diaphragm to the symphysis pubis without oral contrast. IV 100mL Isovue-300 was administered. Sagittal and coronal images were reconstructed. Individualized dose optimization techniques were used for this CT. COMPARISON: 04/28/2020. FINDINGS: Lung bases: Atelectasis/scarring. Heart: Unremarkable. Liver: Unremarkable. Gallbladder/biliary ducts: Cholecystectomy. Mild biliary ductal dilatation statistically related to cholecystectomy. Pancreas: Pancreatic atrophy. Spleen: Unremarkable. Adrenal glands: Unremarkable. Kidneys/ureters/bladder: Left-sided hypodense renal lesion most compatible with cyst (axial image 41 series 2). Nondistended ureters. Distended urinary bladder without focal wall abnormality. Uterus/adnexa: Hysterectomy. Large bowel/small bowel: Minimal nonspecific colonic wall hyperemia without significant focal bowel wall thickening. Colonic diverticulosis without acute diverticulitis. No perforation. No pneumatosis. No obstruction. Nondilated small bowel loops. Appendix: Surgically absent as per clinical history. Gastroesophageal junction/stomach: Small hiatal hernia. Retroperitoneum/lymph nodes: No intra-abdominal free air. No ascites. No pathologically enlarged lymph nodes. Vascular: Vascular calcifications. No aneurysm. Osseous structures: Chronic left 11th rib fracture. Lumbar spine postsurgical changes. Chronic L1 vertebral body fracture. Advanced degenerative changes throughout the lower thoracic and lumbar spine. No acute process. Right hip arthroplasty. Subcutaneous/soft tissues: No acute process. CT/Abdomen/Pelvis W IV Cont ONLY IMPRESSION: Minimal nonspecific colonic wall hyperemia without significant wall thickening (potential early uncomplicated colitis) Nonemergent findings, as above Electronically Signed: Edward Curiel DO at 9:43 EDT Tel , Service support ,
[2020-06-11 09:28] LABS: Magnesium 1.4 mg/dL (1.6-2.6)
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
[2020-06-11] MEDS: Magnesium Sulfate 4gm/100mL 4 GM/100 ML IV.SOLN. IV (10:59)
[2020-06-11] MEDS: Potassium Chloride 10mEq/100mL 10 MEQ/100 ML IV.SOLN. 100 MEQ IV BOLUS ×8 (11:30→19:25)
[2020-06-11] MEDS: Lactated Ringers 1,000 ML 50 ML IV (14:42)
[2020-06-11] MEDS: Ondansetron 4 MG/2 ML Vial IV (14:43)
[2020-06-11] MEDS: 0.9% Saline Lock 10 ML Syringe IV ×2 (14:43→16:53)
[2020-06-11] MEDS: Ciprofloxacin 400 MG/200 ML BAG 200 MG IV (14:48)
[2020-06-11] MEDS: metroNIDAZOLE 500 MG/100 ML BAG 100 MG IV ×2 (16:29→21:37)
[2020-06-11] MEDS: oxyCODONE 5 MG Tablet 7.5 MG PO (16:53)
[2020-06-11 19:02] LABS: Anion Gap 7 (5-15); BUN 6 mg/dL (7-18); BUN/Creat Ratio 8.4 RATIO (10-20); Calcium,Total 8.2 mg/dL (8.5-10.1); Chloride 102 mmol/L (98-107); Creatinine, Serum 0.72 mg/dL (0.55-1.02); EST Glomerular Filtration Rate 84 mL/min (>60); Est Glom Filt Rate - Afr Amer 102 mL/min (>60); Estimated Creatinine Clearance 41.33 ml/min; Glucose 103 mg/dL (74-106); Potassium 3.3 mmol/L (3.5-5.1); Sodium Level 136 mmol/L (136-145)
[2020-06-11] MEDS: Gabapentin 800 MG Tablet PO (21:38)
[2020-06-11] MEDS: Pantoprazole Sodium 40 MG Tablet PO (21:38)
[2020-06-11] MEDS: Zolpidem Tartrate 5 MG Tablet PO (21:40)
[2020-06-12] VITALS (10 sets, daily range): BP systolic 110–134; BP diastolic 57–96; PULSE 62–100; RESP 16; TEMP 36.6–36.8; O2SAT 94–98
[2020-06-12] MEDS: oxyCODONE 5 MG Tablet 7.5 MG PO ×2 (03:06→15:03)
[2020-06-12] MEDS: Lactated Ringers 1,000 ML 150 ML IV (05:09)
[2020-06-12] MEDS: metroNIDAZOLE 500 MG/100 ML BAG 100 MG IV ×3 (05:10→20:55)
[2020-06-12] MEDS: Gabapentin 800 MG Tablet PO ×3 (05:10→20:57)
[2020-06-12 06:00] LABS: Absolute Lymphocyte Count 1.28 X10^3/uL (0.83-4.51); Absolute Neutrophil Count 5.9 X10^3/uL (2.0-7.7); Basophil# 0.05 X10^3/uL; Basophil% 0.6 % (0-1); Eosinophil# 0.04 X10^3/uL; Eosinophils% 0.5 % (0-5); Hematocrit 39.2 % (37-47); Hemoglobin 12.7 g/dL (12.0-15.0); Lymphocyte # 1.28 X10^3/ul (4.0); Lymphocyte % 16.2 % (19-41); Mean Corp Hgb Conc 32.4 g/dL (32-36); Mean Corpuscular Hgb 31.1 pg (27.0-32.0); Mean Corpuscular Volume 96.1 fL (81-99); Mean Platelet Vol. 9.9 fl (6.2-12.0); Monocyte# 0.61 X10^3/uL; Monocyte% 7.7 % (0-10); NRBC Flagged by Analyzer 0 % (0-5); Neutrophil % 74.7 % (47-70); Platelet Count 272 K/mm3 (150-450); RBC Distribution Width CV 12.5 % (11.6-14.6); RBC Distribution Width SD 44.6 fl (35.1-43.9); Red Blood Count 4.08 M/mm3 (4.2-5.4); White Blood Count 7.9 K/mm3 (4.4-11.0)
[2020-06-12 06:23] LABS: Anion Gap 7 (5-15); BUN 7 mg/dL (7-18); BUN/Creat Ratio 9.4 RATIO (10-20); Calcium,Total 8.1 mg/dL (8.5-10.1); Chloride 107 mmol/L (98-107); Creatinine, Serum 0.75 mg/dL (0.55-1.02); EST Glomerular Filtration Rate 80 mL/min (>60); Est Glom Filt Rate - Afr Amer 97 mL/min (>60); Estimated Creatinine Clearance 41.33 ml/min; Glucose 138 mg/dL (74-106); Magnesium 1.8 mg/dL (1.6-2.6); Potassium 3.2 mmol/L (3.5-5.1); Sodium Level 141 mmol/L (136-145)
--- NOTE | 2020-06-12 07:52 | PN_ITS ---
Subjective: Patient seen and examined. He has been managed for acute gastroenteritis and hypokalemia. Patient has no complaints this morning. Diarrhea has not recurred so stool samples have not been taken. Potassium is up to 3.2 today magnesium is 1.8. Vitals/I&O's: Vital Signs Temp Pulse Resp BP Pulse Ox 98.2 F 75 16 134/96 H 98 06/12/20 04:30 06/12/20 07:09 06/12/20 04:30 06/12/20 04:30 06/12/20 04:30 Oxygen Delivery Method Room Air Weight: 140 lb 0.002 oz Body Mass Index (BMI) 24.0 Finger Stick Blood Glucose 172 Intake and Output for Last 24 Hours 06/10/20 06/11/20 06/12/20 23:59 23:59 23:59 Intake Total 2503.34 / 2623.34 1573.33 / 1573.33 Balance 2503.34 / 2623.34 1573.33 / 1573.33 General: Alert, Oriented x3, Cooperative, No apparent distress HEENT: Atraumatic, PERRLA Oral: Moist Mucosa Neck: Supple, No JVD, Negative Carotid Bruits Lungs: Clear to auscultation, Normal air movement, No rhonchi, No wheeze Cardiovascular: Regular rate, Regular Rhythm, Normal S1, Normal S2, No murmurs Abdomen: Bowel Sounds Present, Soft, Non-Distended, No Hepato-splenomegaly, - - minimal generalised tenderness, no guarding or rebound tenderness Extremities: No clubbing, No cyanosis, No edema, Capillary Refill Less than 3 Seconds Skin: No rashes, No breakdown Musculoskeletal: No Tenderness to Palpation of Joints or Extremities Lymphatic: No Cervical, Supraclavicular, or Inguinal Adenopathy Neurological: Cranial nerves II-XII grossly intact, Neuro grossly intact, Motor Exam 5/5 strength throughout Psych/Mental Status: Normal Affect, Appropriate, Alert and oriented to time, place, person, mood and affect Laboratory Results 06/11/20 08:29: Urine Color Straw, Urine Clarity Clear, Urine pH 6.5, Ur Specific Camp 1.005, Urine Protein Negative, Urine Glucose (UA) Normal, Urine Ketones Negative, Urine Occult Blood Negative, Urine Nitrite Negative, Urine Bilirubin Negative, Urine Urobilinogen Normal, Ur Leukocyte Esterase 500 H, Urine RBC 0-5 SEEN, Urine WBC 5-10 SEEN, Ur Squamous Epith Cells 10-25 SEEN, Urine Bacteria 0 SEEN, Urine Mucus 0 SEEN 06/11/20 08:35: WBC 11.4 H, RBC 5.16, Hgb 16.1 H, Hct 48.8 H, MCV 94.6, MCH 31.2, MCHC 33.0, RDW Std Deviation 43.2, RDW Coeff of Jaleel 12.4, Plt Count 380, MPV 9.7, Immature Gran % (Auto) 0.600, Neut % (Auto) 71.7 H, Lymph % (Auto) 19.9, Taney % (Auto) 6.5, Eos % (Auto) 0.9, Baso % (Auto) 0.4, Absolute Neuts (auto) 8.2 H, Absolute Lymphs (auto) 2.27, Nucleated RBC % 0 06/11/20 08:35: Sodium 137, Potassium 2.6 L*, Chloride 98, Carbon Dioxide 29.0, Anion Gap 10, BUN 8, Creatinine 0.87, Estim Creat Clear Calc 47.50, Est GFR (MDRD) Af Amer 81, Est GFR (MDRD) Non-Af 67, BUN/Creatinine Ratio 9.2 L, Glucose 132 H, Calcium 8.7, Total Bilirubin 0.50, AST 13 L, ALT 37, Alkaline Phosphatase 97, Total Protein 7.9, Albumin 3.9, Globulin 4.0, Albumin/Globulin Ratio 1.0 06/11/20 08:35: Magnesium 1.4 L 06/11/20 18:24: Sodium 136, Potassium 3.3 L, Chloride 102, Carbon Dioxide 27.0, Anion Gap 7, BUN 6 L, Creatinine 0.72, Estim Creat Clear Calc 41.33, Est GFR (MDRD) Af Amer 102, Est GFR (MDRD) Non-Af 84, BUN/Creatinine Ratio 8.4 L, Glucose 103, Calcium 8.2 L 06/12/20 05:47: WBC 7.9, RBC 4.08 L, Hgb 12.7, Hct 39.2, MCV 96.1, MCH 31.1, MCHC 32.4, RDW Std Deviation 44.6 H, RDW Coeff of Jaleel 12.5, Plt Count 272, MPV 9.9, Immature Gran % (Auto) 0.300, Neut % (Auto) 74.7 H, Lymph % (Auto) 16.2 L, Taney % (Auto) 7.7, Eos % (Auto) 0.5, Baso % (Auto) 0.6, Absolute Neuts (auto) 5.9, Absolute Lymphs (auto) 1.28, Nucleated RBC % 0 06/12/20 05:47: Sodium 141, Potassium 3.2 L, Chloride 107, Carbon Dioxide 27.0, Anion Gap 7, BUN 7, Creatinine 0.75, Estim Creat Clear Calc 41.33, Est GFR (MDRD) Af Amer 97, Est GFR (MDRD) Non-Af 80, BUN/Creatinine Ratio 9.4 L, Glucose 138 H, Calcium 8.1 L, Magnesium 1.8 Diagnostic Data Abdomen/Pelvis CT 06/11/20 09:15 IMPRESSION: Minimal nonspecific colonic wall hyperemia without significant wall thickening (potential early uncomplicated colitis) Nonemergent findings, as above Electronically Signed: Edward Curiel DO at 9:43 EDT Tel , Service support , Current Medications Amlodipine Besylate (Norvasc) 10 mg PO DAILY [facility] Celecoxib (Celebrex) 200 mg PO DAILY [facility] Enoxaparin Sodium (Lovenox) 40 mg SC DAILY [facility] Gabapentin (Neurontin) 800 mg PO TID [facility] Last Admin: 06/12/20 05:10 Dose: 800 mg Documented by: Sodium Chloride () 250 mls @ 15 mls/hr IV .[id number] PRN PRN Reason: Saline Flush Sodium Chloride () 250 mls @ 15 mls/hr IV .[id number] PRN PRN Reason: Additional IVPB Infusion Metronidazole (Flagyl) 500 mg in 100 mls @ 100 mls/hr IV Q8 [facility] Last Infusion: 06/12/20 06:31 Dose: Infused Documented by: Ciprofloxacin (Cipro) 400 mg in 200 mls @ 200 mls/hr IV Q12 [facility] Last Infusion: 06/11/20 15:48 Dose: Infused Documented by: Potassium Chloride () 10 meq in 100 mls @ 100 mls/hr IV BOLUS Q1H [facility] Stop: 06/12/20 11:29 Iopamidol (Contrast Allergy Check) 0 ml IV X1 [facility] Last Admin: 06/11/20 12:50 Dose: Not Given Documented by: Lisinopril (Zestril) 20 mg PO DAILY [facility] Ondansetron HCl (Zofran) 4 mg IV Q8H PRN PRN PRN Reason: NAUSEA/VOMITING Last Admin: 06/11/20 14:43 Dose: 4 mg Documented by: Oxycodone HCl (Oxyir) 7.5 mg PO TID PRN PRN PRN Reason: Pain Score 1-10 Last Admin: 06/12/20 03:06 Dose: 7.5 mg Documented by: Pantoprazole Sodium (Protonix) 40 mg PO BID [facility] Last Admin: 06/11/20 21:38 Dose: 40 mg Documented by: Sodium Chloride () 10 - 40 ml IV UD PRN PRN Reason: SALINE FLUSH Last Admin: 06/11/20 16:53 Dose: 10 ml Documented by: Zolpidem Tartrate (Ambien (Generic)) 5 mg PO QHS [facility] Last Admin: 06/11/20 21:40 Dose: 5 mg Documented by: STROKE Vital Signs/Narrative: Vital Signs Temp Pulse Resp BP Pulse Ox 06/12/20 07:09 75 06/12/20 05:34 88 06/12/20 04:30 98.2 F 86 16 134/96 H 98 Medical Necessity - Tobacco Use Smoking Status: Never smoker Assessment/Plan All Active Problems (Last Updated 03/16/20 @ 08:37 by Camila Caballero) Contact with and (suspected) exposure to other viral communicable diseases (Acute) Pharyngitis (Acute) Nonischemic cardiomyopathy (Resolved) Hx pulmonary embolism (Resolved) Bronchitis (Resolved) Delirium (Resolved) Gastroenteritis (Resolved) Gingivostomatitis (Resolved) Pulmonary embolism, bilateral (Resolved) Shingles (Resolved) Shortness of breath (Resolved) UTI (urinary tract infection) (Resolved) 74 y/o admitted with a complaint of abdominal pain and diarrhea # Acute gastroenteritis with colitis * improving * diarrhea didnt recur * continue gentle hydration with IVF and advance to full liquids * on IV ciprofloxacin and IV metronidazole * * #Hypokalemia and hypomagnesemia: * potassium is up to 3.2, and Mg is 1.8 * will continue to replace potassium and monitor * #Hypertension: On amlodipine and benazepril. #Type 2 diabetes mellitus. Hold metformin. Insulin sliding scale. Accu-Cheks AC at bedtime. GERD: On PPI DVT prophylaxis: Lovenox CODE STATUS: Full code Inpatient E&M: 68981 Subs Hosp L2
[2020-06-12] MEDS: Potassium Chloride 10mEq/100mL 10 MEQ/100 ML IV.SOLN. 100 MEQ IV BOLUS (08:02)
[2020-06-12] MEDS: Potassium Chloride 10mEq/100mL 10 MEQ/100 ML IV.SOLN. 80 MEQ IV BOLUS ×3 (09:16→11:11)
[2020-06-12] MEDS: Ciprofloxacin 400 MG/200 ML BAG 200 MG IV ×2 (10:11→22:10)
[2020-06-12] MEDS: Pantoprazole Sodium 40 MG Tablet PO ×2 (10:13→13:21)
[2020-06-12] MEDS: Lisinopril 20 MG Tablet PO (10:13)
[2020-06-12] MEDS: Enoxaparin 40 MG/0.4 ML Syringe SC (10:13)
[2020-06-12] MEDS: amLODIPine 10 MG Tablet PO (10:13)
[2020-06-12] MEDS: Celecoxib 200 MG Capsule PO (10:13)
--- NOTE | 2020-06-12 12:05 | CASEMGMT ---
RN CM Assessment Note Introduced role of CM to patient. Demographics, PCP verified. The patient states her sign other does not live with her, but a few doors down. Pt lives with her dog in a mobile home independently. 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 Diagnosis: colitis PCP: Dr. Margarita Drake Insurance: [facility] Preferred Pharmacy: [facility], [place] Prescription Benefit: yes LNOK: Sign Other, Rj Katz Living Arrangements: Lives independently in mobile home. States she is independent and does not have care needs. Tranportation: drives DME: RTC, walker, cane, grab bars HHC: none SNF: none Patient DC Goals: Home DC Plan: Home on dc. CM available for discharge planning coordination. Contact CM for any concerns/needs that may arise. Nasreen RODRIGUEZ RN ACM
--- NOTE | 2020-06-12 13:56 | EKG12_ITS ---
Test Reason : Blood Pressure : / mmHG Vent. Rate : 092 BPM Atrial Rate : 092 BPM P-R Int : 192 ms QRS Dur : 076 ms QT Int : 450 ms P-R-T Axes : 046 -02 061 degrees QTc Int : 556 ms Sinus rhythm with Premature atrial complexes in a pattern of bigeminy Low voltage QRS Inferior infarct (cited on or before 22-JAN-2017) Prolonged QT Abnormal ECG When compared with ECG of 31-AUG-2019 06:52, Premature atrial complexes are now Present Nonspecific T wave abnormality, improved in Lateral leads Confirmed by YADIRA ARAGON, MICAELA ([id number]), editor city MILVIA MCLEAN ([id number]) on 06/17/2020 11:22:33 AM Referred By: MARTHA Confirmed By:LISA MAY MD
--- NOTE | 2020-06-12 14:09 | NURSING ---
respitory staff obtaining ekg
[2020-06-12] MEDS: Zolpidem Tartrate 5 MG Tablet PO (20:59)
[2020-06-13] VITALS (7 sets, daily range): BP systolic 132–151; BP diastolic 57–92; PULSE 70–116; RESP 16; TEMP 36.3–36.7; O2SAT 95–97
[2020-06-13] MEDS: metroNIDAZOLE 500 MG/100 ML BAG 100 MG IV (05:49)
[2020-06-13] MEDS: oxyCODONE 5 MG Tablet 7.5 MG PO ×2 (05:53→14:06)
[2020-06-13] MEDS: Gabapentin 800 MG Tablet PO ×2 (05:53→14:07)
--- NOTE | 2020-06-13 07:47 | PCM.DC.SUM ---
Discharge Date and Diagnosis Date of Admission: 06/11/20 Date of Discharge: 06/13/20 - Primary Discharge Diagnosis Acute Problems: acute gastroenteritis hypokalemia hypomagnesemia - Secondary Discharge Diagnosis Chronic Problems: Chronic Problems (Last Updated 03/16/20 @ 08:37 by Camila Caballero) Takotsubo cardiomyopathy (Chronic) 2013 25%, 2017-60% Nonobstructive atherosclerosis of coronary artery (Chronic) Essential (primary) hypertension (Chronic) Hyperlipidemia (Chronic) Hospital Course and Treatment Imaging Results: Diagnostic Data Abdomen/Pelvis CT 06/11/20 09:15 IMPRESSION: Minimal nonspecific colonic wall hyperemia without significant wall thickening (potential early uncomplicated colitis) Nonemergent findings, as above Electronically Signed: Edward Curiel DO at 9:43 EDT Tel , Service support , Operations: None Procedures: None Summary of Care Provided: The patient is a 74 year old F with a PMH as outlined who was admitted via the ED with a complaitn of abdominal pain and diarrhea for about a week before admission. She denied any fever, chills, nausea, vomiting, or headache and palpitations. She denies having had any fever and denies any urinary symptoms. She had associaed nausea and vomiting and anorexia. She hasnt had any antibiotics recently and has never had CDiff. She does not have any history of diverticulitis. Review of signs otherwise negative. In the ED, vitals showed temperature of 91.3 Fahrenheit with blood pressure 155/69, pulse rate of 106 and respiratory of 18. She was saturating at 95% on room air. CBC showed wbc of 11.4, hemoglobin of 16.1 and platelets of 380. Chemistry showed sodium of 137 with potassium of 2.6 and magnesium of 1.4. CT of the abdomen and pelvis showed minimal nonspecific colonic wall hyperemia without significant wall thickening and potential early uncomplicated colitis and colonic diverticulosis without acute diverticulitis. She was admitted to be managed for acute gastroenteritis with hypokalemia and hypomagnesemia as well as colitis. She was hydrated with IVF, and potassium and magnesium were aggressively replaced. Hypokalemia and hypomagnesemia resolved and diarrhea did not recur during this admission. Patient was initially started on clear diet but was transitioned to soft and then regular diet which she tolerated well. Patient improved markedly and felt much better. She was therefore discharged home on 06/13/2020. She is to follow-up with her primary care doctor within 1 to 2 weeks. Patient seen and examined prior to discharge. She had no complaints and felt well. Review of symptoms otherwise negative. Labs and vitals reviewed. Home medication reviewed and reconciled. O/E: Vital Signs Temp Pulse Resp BP Pulse Ox 97.7 F L 70 16 151/77 H 97 06/13/20 03:08 06/13/20 03:59 06/13/20 03:08 06/13/20 03:08 06/13/20 03:08 General: Alert, Oriented x3, Cooperative, No apparent distress HEENT: Atraumatic, PERRLA Oral: Moist Mucosa Neck: Supple, No JVD, Negative Carotid Bruits Lungs: Clear to auscultation, Normal air movement, No rhonchi, No wheeze Cardiovascular: Regular rate, Regular Rhythm, Normal S1, Normal S2, No murmurs Abdomen: Bowel Sounds Present, Soft, Non-Distended, No Hepato-splenomegaly, nontender Extremities: No clubbing, No cyanosis, No edema, Capillary Refill Less than 3 Seconds Skin: No rashes, No breakdown Musculoskeletal: No Tenderness to Palpation of Joints or Extremities Lymphatic: No Cervical, Supraclavicular, or Inguinal Adenopathy Neurological: Cranial nerves II-XII grossly intact, Neuro grossly intact, Motor Exam 5/5 strength throughout Psych/Mental Status: Normal Affect, Appropriate, Alert and oriented to time, place, person, mood and affect Plan is for discharge home today. Potassium on day of discharge was 3.2. This was replaced aggressively, and she was discharged with script for oral potassium. She is to follow up with her PCP for follow up BMP to check potassium levels. - Physical Exam Vitals/I&O's: Vital Signs Temp Pulse Resp BP Pulse Ox 97.7 F L 70 16 151/77 H 97 06/13/20 03:08 06/13/20 03:59 06/13/20 03:08 06/13/20 03:08 06/13/20 03:08 Oxygen Delivery Method Room Air Weight: 140 lb 0.002 oz Body Mass Index (BMI) 24.0 Finger Stick Blood Glucose 172 Intake and Output for Last 24 Hours 06/11/20 06/12/20 06/13/20 23:59 23:59 23:59 Intake Total 2503.34 / 2623.34 4039.66 / 4289.66 650.25 / 650.25 Balance 2503.34 / 2623.34 4039.66 / 4289.66 650.25 / 650.25 Laboratory Results 06/13/20 07:00: Sodium Pending, Potassium Pending, Chloride Pending, Carbon Dioxide Pending, Anion Gap Pending, BUN Pending, Creatinine Pending, Est GFR (MDRD) Af Amer Pending, Est GFR (MDRD) Non-Af Pending, BUN/Creatinine Ratio Pending, Glucose Pending, Calcium Pending Current Medications Amlodipine Besylate (Norvasc) 10 mg PO DAILY [facility] Last Admin: 06/12/20 10:13 Dose: 10 mg Documented by: Celecoxib (Celebrex) 200 mg PO DAILY [facility] Last Admin: 06/12/20 10:13 Dose: 200 mg Documented by: Enoxaparin Sodium (Lovenox) 40 mg SC DAILY [facility] Last Admin: 06/12/20 10:13 Dose: 40 mg Documented by: Gabapentin (Neurontin) 800 mg PO TID [facility] Last Admin: 06/13/20 05:53 Dose: 800 mg Documented by: Sodium Chloride () 250 mls @ 15 mls/hr IV .[id number] PRN PRN Reason: Saline Flush Last Infusion: 06/13/20 06:49 Dose: 15 mls/hr Documented by: Sodium Chloride () 250 mls @ 15 mls/hr IV .[id number] PRN PRN Reason: Additional IVPB Infusion Metronidazole (Flagyl) 500 mg in 100 mls @ 100 mls/hr IV Q8 [facility] Last Infusion: 06/13/20 06:49 Dose: Infused Documented by: Ciprofloxacin (Cipro) 400 mg in 200 mls @ 200 mls/hr IV Q12 [facility] Last Infusion: 06/12/20 23:10 Dose: Infused Documented by: Lisinopril (Zestril) 20 mg PO DAILY [facility] Last Admin: 06/12/20 10:13 Dose: 20 mg Documented by: Ondansetron HCl (Zofran) 4 mg IV Q8H PRN PRN PRN Reason: NAUSEA/VOMITING Last Admin: 06/11/20 14:43 Dose: 4 mg Documented by: Oxycodone HCl (Oxyir) 7.5 mg PO TID PRN PRN PRN Reason: Pain Score 1-10 Last Admin: 06/13/20 05:53 Dose: 7.5 mg Documented by: Pantoprazole Sodium (Protonix) 40 mg PO BID [facility] Last Admin: 06/12/20 13:21 Dose: 40 mg Documented by: Sodium Chloride () 10 - 40 ml IV UD PRN PRN Reason: SALINE FLUSH Last Admin: 06/11/20 16:53 Dose: 10 ml Documented by: Zolpidem Tartrate (Ambien (Generic)) 5 mg PO QHS [facility] Last Admin: 06/12/20 20:59 Dose: 5 mg Documented by: Discharge Diet: Low fat/ Low Cholesterol Discharge Activity: Return to Normal Activity Weight Bearing Status: Weight bearing as tolerated Call your doctor if you observe: Uncontrolled pain, - - diarrhea and vomiting. Home Medications: Medications to take at Discharge Pantoprazole Sodium [Protonix] 40 mg PO BID 01/22/17 gabapentin 400 mg capsule 800 mg PO TID cap 10/11/17 ascorbic acid (vitamin C) 1,000 mg tablet 1 g PO DAILY tab 10/22/18 cholecalciferol (vitamin D3) 50 mcg (2,000 unit) capsule 2,000 unit PO DAILY 10/22/18 magnesium oxide 400 mg (241.3 mg magnesium) tablet 400 mg PO DAILY tab 10/22/18 vitamin E (dl, acetate) 450 mg (1,000 unit) capsule 1,000 unit PO DAILY 10/22/18 zolpidem 10 mg tablet 5 mg PO QHS tab 10/22/18 Amlodipine/Benazepril [Lotrel 10-20 MG Capsule] 1 cap PO DAILY 12/13/18 Celecoxib [Celebrex] 200 mg PO DAILY 04/28/20 Metformin HCl 1,000 mg PO BID 04/28/20 Ondansetron [Zofran Odt] 4 mg PO Q8H PRN PRN #10 tab 04/28/20 Oxycodone HCl/Acetaminophen [Percocet 7.5-325 mg Tablet] 1 tab PO TID PRN 04/28/20 Tizanidine HCl 4 mg PO BID 04/28/20 Potassium Chloride [K-Dur] 20 meq PO DAILY #15 tab 06/13/20 Following Prescriptions Were Given to Patient: Potassium Chloride [K-Dur] 20 meq PO DAILY #15 tab Transmission Status: Received by [facility] Primary Care Physician: Margarita Drake DO [Primary Care Provider] - Please follow up with your Primary Care Physician in: 1-2 weeks Patient Instructions: ED Viral Gastroenteritis Disposition: Home Minutes spent on discharge:: 35 Patient Condition:: Stable Medical Necessity - Tobacco Use Smoking Status: Never smoker Meaningful Use Info Meaningful Use Diagnoses (Choose all that apply): None applicable Inpatient E&M: 18005 Disch Hosp
[2020-06-13 07:54] LABS: Anion Gap 6 (5-15); BUN 5 mg/dL (7-18); BUN/Creat Ratio 7.5 RATIO (10-20); Calcium,Total 7.9 mg/dL (8.5-10.1); Chloride 107 mmol/L (98-107); Creatinine, Serum 0.66 mg/dL (0.55-1.02); EST Glomerular Filtration Rate 92 mL/min (>60); Est Glom Filt Rate - Afr Amer 111 mL/min (>60); Estimated Creatinine Clearance 41.33 ml/min; Glucose 159 mg/dL (74-106); Potassium 3.2 mmol/L (3.5-5.1); Sodium Level 141 mmol/L (136-145)
[2020-06-13] MEDS: Lisinopril 20 MG Tablet PO (08:28)
[2020-06-13] MEDS: Celecoxib 200 MG Capsule PO (08:28)
[2020-06-13] MEDS: Pantoprazole Sodium 40 MG Tablet PO (08:28)
[2020-06-13] MEDS: Enoxaparin 40 MG/0.4 ML Syringe SC (08:29)
[2020-06-13] MEDS: amLODIPine 10 MG Tablet PO (08:29)
[2020-06-13] MEDS: Ciprofloxacin 400 MG/200 ML BAG 100 MG IV (09:52)
--- NOTE | 2020-06-13 09:56 | PCM.DC ---
You will use the following diet at home:: Cardiac Your food should be the consistency of: Regular Your liquids should be the consistency of: Regular/Thin Discharge Activity: Return to Normal Activity Weight Bearing Status: Weight bearing as tolerated Call your doctor if you observe: Fever of 101 or Higher, Uncontrolled pain, - - diarrhea and vomiting. Instructions: ED Viral Gastroenteritis Additional Instructions: to follow with PCP for repeat BMP within one week to assess potassium level Allergies/Adverse Reactions: Allergies rosuvastatin calcium [From Crestor] Allergy (Verified 06/11/20 08:16) Itching simvastatin Allergy (Verified 06/11/20 08:16) Itching atorvastatin Adverse Reaction (Verified 06/11/20 08:16) nausea Medications to take at Discharge Pantoprazole Sodium [Protonix] 40 mg PO BID 01/22/17 gabapentin 400 mg capsule 800 mg PO TID cap 10/11/17 ascorbic acid (vitamin C) 1,000 mg tablet 1 g PO DAILY tab 10/22/18 cholecalciferol (vitamin D3) 50 mcg (2,000 unit) capsule 2,000 unit PO DAILY 10/22/18 magnesium oxide 400 mg (241.3 mg magnesium) tablet 400 mg PO DAILY tab 10/22/18 vitamin E (dl, acetate) 450 mg (1,000 unit) capsule 1,000 unit PO DAILY 10/22/18 zolpidem 10 mg tablet 5 mg PO QHS tab 10/22/18 Amlodipine/Benazepril [Lotrel 10-20 MG Capsule] 1 cap PO DAILY 12/13/18 Celecoxib [Celebrex] 200 mg PO DAILY 04/28/20 Metformin HCl 1,000 mg PO BID 04/28/20 Ondansetron [Zofran Odt] 4 mg PO Q8H PRN PRN #10 tab 04/28/20 Oxycodone HCl/Acetaminophen [Percocet 7.5-325 mg Tablet] 1 tab PO TID PRN 04/28/20 Tizanidine HCl 4 mg PO BID 04/28/20 Potassium Chloride [K-Dur] 20 meq PO DAILY #15 tab 06/13/20 The following prescriptions were given: Potassium Chloride [K-Dur] 20 meq PO DAILY #15 tab Transmission Status: Pending to [facility] Primary Care Physician: Margarita Drake DO [Primary Care Provider] - Please follow up with your Primary Care Physician in: 1-2 weeks Test Results: Test results from this visit will be discussed in further detail at your follow-up appointment, if applicable. Proposed Discharge Date: 06/13/20
[2020-06-13] MEDS: Potassium Chloride 10mEq/100mL 10 MEQ/100 ML IV.SOLN. 100 MEQ IV BOLUS (11:37)
[2020-06-13] MEDS: Potassium Chloride 10mEq/100mL 10 MEQ/100 ML IV.SOLN. 75 MEQ IV BOLUS ×3 (12:57→15:50)
--- NOTE | 2020-06-15 12:38 | CASEMGMT ---
INDRA CAMERON Discharge Follow-up Phone Call: BELA: Aleax Strata: 3 Call Date: 06/15/2020 Discharge Date: 06/13/2020 Time of Call: 1235 Admitting Diagnosis; Gastroenteritis, hypoK, hypoMag Discharge follow-up call attempted to pt's home and cell phones. Pt's home line rung busy and pt's cell without voicemail set up so message unable to be left. Will attempt a return call at a later time. Lady Sanchez RN CM
--- NOTE | 2020-06-15 14:35 | CASEMGMT ---
INDRA CAMERON Discharge Follow-up Phone Call: Discharge follow-up call placed a second time to pt. Pt answered and states she has been doing alright since discharge. Pt states she has had difficulty swallowing the KCl pills but she is able to get them down with a little pop. Pt states she has a follow-up appointment with Dr. Drake tomorrow. Pt denies any further questions or concerns. Lady Sanchez RN CM
== END 2020-06-13 16:31 | disposition home or self-care (01) ==
LOC: ED 09:01 → MS3 11:07
PROVIDERS: Admitting Provider Student in an Organized Health Care Education/Training Program; Emergency Provider Student in an Organized Health Care Education/Training Program; PCP Internal Medicine; Visit Provider Student in an Organized Health Care Education/Training Program
CPT/HCPCS: 36415; 74177; 80048; 80053; 81001; 83735; 85025; 93005; 97166; 97802; 99285; J7030; J7040; J7050; J7120; Q9967; A4216; J0744; J2405

== ENCOUNTER → 2020-07-06 12:32 | Outpatient (CLI) | payer MEDICARE, OTHER, SELFPAY ==
[2020-06-11 11:36] VITALS: BMI 24.0
--- NOTE | 2020-07-06 12:40 | RAD_ITS ---
STUDY: X-RAY - LUMBAR SPINE REASON FOR EXAM: Female, 74 years old. CHRONIC BACK PAIN TECHNIQUE: 5 view(s) of the lumbar spine were obtained. COMPARISON: None FINDINGS: Normal lumbar lordosis. There is mild dextroscoliosis of the lumbar spine. There is a normal alignment of the vertebrae. There is generalized demineralization of the vertebral bodies. There is posterior fusion extending from L1 to L4. The hardware is well-placed. There is multi-level degenerative disc disease with multi-level disc space narrowing. The soft tissue structures are unremarkable. RAD/L/S Spine Min 4 Views IMPRESSION: There is generalized demineralization of the vertebral bodies. There is posterior fusion extending from L1 to L4. The hardware is well-placed. Electronically Signed: Jeb Piedra, at 7:08 EST Tel , Service support ,
== END ==
PROVIDERS: PCP Internal Medicine; Referring Provider Nurse Practitioner Family; Visit Provider Nurse Practitioner Family
DX: M54.9 Dorsalgia, unspecified (principal)
CPT/HCPCS: 72110

== ENCOUNTER → 2020-08-05 11:51 | Outpatient (CLI) | payer MEDICARE, OTHER, SELFPAY ==
[2020-06-11 11:36] VITALS: BMI 24.0
--- NOTE | 2020-08-05 14:35 | NEURO ---
NCS and/or EMG Patient Report Ordering Doctor: Parminder Sung DATE OF SERVICE: 08/05/20 Gail Kang presents for electrodiagnostic testing of the lower limbs. She reports weakness in both legs and decreased sensation from the knees down. She has a history of back surgeries and bilateral tarsal tunnel release. Electrodiagnostic findings: Peroneal motor nerve demonstrates normal distal latency, amplitude and conduction velocity bilaterally. Normal tibial motor response on the left side. Right tibial motor nerve demonstrates normal distal latency with reduced amplitude and normal conduction velocity. Normal peroneal and tibial F waves. H reflex prolonged bilaterally. Normal sural latency is noted bilaterally. Absent superficial peroneal response bilaterally. Absent left medial plantar response. On needle EMG, all muscles tested in the lower limbs showed no acute denervation. Motor unit action potentials are of normal amplitude and duration. Electrodiagnostic impression:This is an abnormal study. 1. Electrodiagnostic findings demonstrate peripheral polyneuropathy, sensory greater than motor. 2. No electrodiagnostic evidence is noted for lumbosacral radiculopathy. If there are any further questions, please do not hesitate to contact me
== END ==
PROVIDERS: PCP Internal Medicine; Referring Provider Podiatrist; Visit Provider Podiatrist
DX: G60.3 Idiopathic progressive neuropathy (principal)
CPT/HCPCS: 95886; 95912

== ENCOUNTER 2020-08-16 11:10 | Emergency (ER) | payer MEDICARE, OTHER, SELFPAY ==
[2020-06-11 11:36] VITALS: BMI 24.0
[2020-08-16 11:11] VITALS: BP 151/74; PULSE 88; RESP 17; TEMP 36.6; O2SAT 98; BMI 25.7
--- NOTE | 2020-08-16 11:25 | RAD_ITS ---
STUDY: X-RAY - PELVIS AND LEFT HIP REASON FOR EXAM: Female, 75 years old. hip pain post fall TECHNIQUE: 3 views of the pelvis and hip. COMPARISON: 06/11/2020 CT abdomen FINDINGS: There is a non-specific bowel gas pattern. Diffuse heterotopic ossification of the greater trochanteric region and left ilium. Normal bilateral iliac wings, sacroiliac joints and visualized sacrum. Normal bilateral superior and inferior pubic rami. Normal pubic symphysis. Normal bilateral ischial tuberosities. There are osteoarthritic changes of the femoral head with marginal osteophyte formation. Normal acetabulum. There is moderate articular joint space narrowing of the hip. RAD/HIP, UNI W/ Pelvis 2-3 Views IMPRESSION: Moderate osteoarthrosis of the left hip with no evidence of underlying acute fracture or dislocation. If patient is nonweightbearing recommend MRI to exclude occult fracture. Electronically Signed: Maldonado Pablo DO at 12:07 EST , Service support ,
--- NOTE | 2020-08-16 11:26 | ED.VIS.GEN ---
History of Present Illness Chief Complaint: Lower Extremity Injury Informant: Patient Onset: Yesterday Current Severity: Moderate Maximum Severity: Moderate Narrative: Patient presents secondary left hip pain. She tripped over a rug and fell last night landing directly on her left hip. She had difficulty with ambulating since that time. She denies striking her head. She denies back pain. - Past Medical History (1) Essential (primary) hypertension Status: Chronic (2) Hyperlipidemia Status: Chronic (3) Takotsubo cardiomyopathy Status: Chronic Comment: 2013 25%, 2017-60% (4) Hx pulmonary embolism Status: Resolved (5) Nonischemic cardiomyopathy Status: Resolved Past Medical History - Allergies and Home Meds Allergies/Adverse Reactions: Allergies rosuvastatin calcium [From Crestor] Allergy (Verified 08/16/20 11:11) Itching simvastatin Allergy (Verified 08/16/20 11:11) Itching atorvastatin Adverse Reaction (Verified 08/16/20 11:11) nausea Primary Care Physician: Margarita Drake DO [Primary Care Provider] - Prior records reviewed: Yes Surgical History: appendectomy, cholecystectomy, hysterectomy, total hip arthroplasty - Right 2003, revision 2013., total knee arthroplasty - Right, 08/19/2014., - - Brain Surgery for Budd Chiari x 2, Bilateral carpal tunnel release, cervical surgery 12/2013, Laminectomy 2000, 7 back surgeries Smoking Status: Never smoker - Family History Maternal Family History: Family History (Last Reviewed 03/16/20 @ 08:37 by Camila Caballero) Mother Breast cancer Diabetes Carcinoma, lung Father Carcinoma, lung Family History: Reports: Cancer - breast cancer Paternal Family History: Family History (Last Reviewed 03/16/20 @ 08:37 by Camila Caballero) Mother Breast cancer Diabetes Carcinoma, lung Father Carcinoma, lung Family History: Reports: Cancer, Pulmonary Disease - Emphysema Review of Systems General: Denies: Chills, Fever Eyes: Denies: Visual changes - bilaterally ENT: Denies: Bilateral ear pain Cardiovascular: Denies: Chest pain Respiratory: Denies: Dyspnea, Cough Gastrointestinal: Denies: Abdominal pain, Nausea, Vomiting, Diarrhea Musculoskeletal: Reports: Extremity Pain Neurological: Reports: Weakness Psych: Denies: Depression Hematologic: Denies: Easy bruising, Easy bleeding Allergy: Denies: Uticaria Physical Exam Vital Signs/Narrative: Vital Signs Temp Pulse Resp BP Pulse Ox 08/16/20 11:11 98 F 88 17 151/74 H 98 Inital Vital Signs reviewed: Yes General: Well nourished, Well developed Head: Normocephalic ENT: Moist mucous membranes Neck: Supple Cardiovascular: Regular rate, Regular rhythm Respiratory: No distress, CTA bilaterally Abdomen: Soft, Nontender Extremities: - - Tenderness palpation of the greater trochanter of the left hip. Equal leg lengths. Strong distal pulses with good sensation on testing. Neurological: Alert, Oriented x3 Psychological: Normal affect Diagnostic/Tx/Re-eval Impressions Hip/Pelvis X-Ray 08/16/20 11:25 IMPRESSION: Moderate osteoarthrosis of the left hip with no evidence of underlying acute fracture or dislocation. If patient is nonweightbearing recommend MRI to exclude occult fracture. Electronically Signed: Maldonado Pablo DO at 12:07 EST , Service support , Lower Extremity CT 08/16/20 12:12 IMPRESSION: No convincing evidence for acute left-sided femoral neck fractures. Degenerative arthritis of the left hip joint Electronically Signed: [place], at 13:46 EST Tel , Service support , 08/16/20 11:25 HIP, UNI W/ Pelvis 2-3 Views [RAD] Stat 08/16/20 12:12 CT Lower [Extremity Lower without Contra] [CT] Stat - Medical Decision Making Patient declined anything for pain here stating that she had a pain patch on. Initial x-rays were unremarkable, however due to the patient's degree of pain I did obtain a CT scan. MRI was not available on the weekend. CT scan does not show any convincing evidence of fracture. These images are reviewed by myself. Patient continue her pain patch at home and if not improving will follow-up with her doctor for possible MRI. It is noted patient has been able to ambulate and go up and down steps after her fall. ED Disposition - Plan for ED Patient: Disposition: Home or Assisted Living Diagnosis: Contusion of left hip Instructions: ED Hip Contusion Referrals: Noelle,Margarita, DO [Primary Care Provider] - 3-5 Days if not improving
--- NOTE | 2020-08-16 12:12 | CT_ITS ---
STUDY: CT LEFT LOWER EXTREMITY WITHOUT IV CONTRAST LEFT REASON FOR EXAM: Female, 75 years old. FALL 1 DAY AGO, LEFT HIP PAIN RADIATION DOSAGE (If Supplied By Facility): CTDIvol = ( 13.69 ) mGy, DLP = ( 553.72 ) mGycm. Individualized dose optimization techniques were used for this CT.? TECHNIQUE: CT images of the left lower extremity were obtained without IV contrast. COMPARISON: None. FINDINGS: There is significant degenerative arthritis of the left hip joint seen with joint space narrowing and spurring. No definite evidence for acute femoral neck fractures are seen. The superior and inferior pubic rami are intact. Degenerative changes of the sacroiliac joints and the lumbar spine on seen. Grade 1 anterolisthesis of L4 on L5. Atrophy of the left gluteus musculature Uncomplicated colonic diverticulosis. Distended urinary bladder. IMPRESSION: No convincing evidence for acute left-sided femoral neck fractures. Degenerative arthritis of the left hip joint Electronically Signed: [place], at 13:46 EST Tel , Service support , CT/Extremity Lower without Contra
[2020-08-16 13:42] VITALS: BP 123/78; PULSE 74; RESP 16; O2SAT 94
== END 2020-08-16 14:03 | disposition home or self-care (01) ==
PROVIDERS: Emergency Provider Emergency Medicine; PCP Internal Medicine
DX: S70.02XA Contusion of left hip, initial encounter (principal); Z86.711 Personal history of pulmonary embolism; W01.0XXA Fall on same level from slipping, tripping and stumbling without subsequent striking against object, initial encounter
CPT/HCPCS: 73502; 73700; 99282

== ENCOUNTER → 2020-09-22 10:46 | Outpatient (CLI) | payer MEDICARE, OTHER, SELFPAY ==
[2020-09-22 12:44] LABS: BUN 15 mg/dL (7-18); Creatinine, Serum 0.72 mg/dL (0.55-1.02); EST Glomerular Filtration Rate 83 mL/min (>60); Est Glom Filt Rate - Afr Amer 100 mL/min (>60)
== END ==
PROVIDERS: PCP Internal Medicine; Referring Provider Orthopaedic Surgery; Visit Provider Orthopaedic Surgery
DX: M47.22 Other spondylosis with radiculopathy, cervical region (principal); M48.02 Spinal stenosis, cervical region; M50.30 Other cervical disc degeneration, unspecified cervical region
CPT/HCPCS: 36415; 82565; 84520

== ENCOUNTER → 2020-09-28 11:40 | Outpatient (CLI) | payer MEDICARE, OTHER, SELFPAY ==
--- NOTE | 2020-09-28 11:50 | RAD_ITS ---
PROCEDURE: LUMBAR MYELOGRAM DATE OF EXAMINATION: 09/28/2020 INDICATION: Female, 75 years old. Cervical pain. PHYSICIAN: Florian Valenzuela M.D. CONSENT: The patient''s history and physical findings were reviewed. The cervical myelogram procedure was discussed with the patient prior to signing a consent. SEDATION: Local anesthesia with 3 mL of 1% lidocaine was used. FLUOROSCOPY TIME (if supplied): (2:13) minutes/seconds Injection Information: 15 cc of ISOVUE M300 Number of images obtained: 8 TECHNIQUE: Digital fluoroscopy was used to identify a safe approach for the cervical myelogram. The back was prepped and draped in usual fashion. Local anesthesia was utilized. Under fluoroscopic guidance a 22-gauge spinal needle was inserted into the spinal canal at the L4-5 level. 15 mL of Isovue 300 M was injected into the spinal canal. The patient was placed in the [place] position. Contrast was advanced to the level of the cervical spine. CT scan will follow. RAD/Cervical Myelogram IMPRESSION: Lumbar injection for cervical myelography. CT scan will follow. Electronically Signed: Florian Valenzuela MD at 13:27 EST , Service support ,
[2020-09-28 12:08] VITALS: BP 160/75; PULSE 77; RESP 14; TEMP 36.9; O2SAT 97; BMI 25.0
--- NOTE | 2020-09-28 12:49 | CT_ITS ---
STUDY: CT CERVICAL SPINE WITH INTRATHECAL CONTRAST (CERVICAL CT MYELOGRAM) REASON FOR EXAM: Female, 75 years old. POST MYELOGRAM RADIATION DOSAGE (If Supplied By Facility): CTDIvol = ( 17.73 ) mGy, DLP = ( 304.27 ) mGycm TECHNIQUE: Transaxial images were obtained following intrathecal administration of 15 ml of ISOVUE M 300 contrast material, performed by Dr. Nicolas ARAGON. Please refer to this physicians technical notes for procedural details. Coronal and sagittal reconstructions were obtained. Individualized dose optimization techniques were used for this CT. COMPARISON: Comparison is made with prior mammogram performed earlier today. FINDINGS: Normal craniovertebral junction. There are degenerative changes of the anterior atlantoaxial articulation. Normal odontoid process. There is straightening of the normal cervical lordosis. The patient is status post anterior fusion with screws and metallic plate at the C3-C4, C4-C5 and C5-C6 levels. Minimal anterior listhesis of the C2 on C3. There is evidence of deformity of the thecal sac along its central and left lateral region. Possible compromise of the exiting nerve root on the left side. There is evidence of facet joint arthritis and hypertrophy worse on the left side. C3/C4: The patient is status post anterior fusion. No evidence of a cervical or neural foraminal stenosis. C4/C5: Status post anterior fusion. Facet joint osteoarthritis and hypertrophy. Mild degree of bilateral neural foraminal stenosis. C5-6: Prior anterior fusion. Moderate degree of the central canal stenosis. This is due to posterior spondylosis and facet joint osteoarthritis. C6-7: Moderate degree of central canal stenosis with extension to the right side of the midline. C7-T1: Normal endplates. Normal disc height and morphology. Normal bilateral uncovertebral and apophyseal joints. Normal central canal and bilateral intervertebral neural foramen. CT/Spine Cervical WITH Contrast IMPRESSION: Prior anterior fusion at the C3-C4, C4-C5 and C5-C6 levels as described with this central and paracentral stenosis. Electronically Signed: Florian Valenzuela MD at 13:39 EST , Service support ,
[2020-09-28 13:33] VITALS: BP 135/72; PULSE 74; RESP 16; O2SAT 95
== END ==
PROVIDERS: PCP Internal Medicine; Referring Provider Orthopaedic Surgery; Visit Provider Orthopaedic Surgery
DX: M47.22 Other spondylosis with radiculopathy, cervical region (principal)
CPT/HCPCS: 62302; 72126

== ENCOUNTER → 2020-11-19 16:31 | Outpatient (CLI) | payer MEDICARE, OTHER, SELFPAY ==
[2020-09-28 12:08] VITALS: BMI 25.0
--- NOTE | 2020-11-19 16:39 | MRI_ITS ---
STUDY: MRI LEFT HIP REASON FOR EXAM: Left hip pain. TECHNIQUE: Standardized fat and water weighted pulse sequences were obtained in all 3 orthogonal planes. COMPARISON: Radiographs 08/16/2020, CT images 08/16/2020. FINDINGS: There is left hip arthrosis with small marginal osteophytes and chondral thinning (proton-density sagittal images 6, 7). Normal acetabulum. There is a tear of the left anterosuperior labrum (proton-density sagittal images 6, 7). Normal femoral head. Normal femoral neck and intratrochanteric region. There is a tear of the left gluteus medius tendon (inversion recovery coronal images 13-16). There is tendinosis of the left gluteus minimus tendon (inversion recovery coronal image 17) without focal discontinuity of the tendon. Normal left iliopsoas tendon. There is enthesopathy of the left greater trochanter (T1 coronal images 13-17). There is left greater trochanteric bursitis (inversion recovery coronal images 11-14). Normal superior and inferior pubic rami. Normal pubic symphysis. Normal ischial tuberosity. Normal origin of the hamstring tendons. Normal visualized left sacroiliac joint, and sacral ala. There is a bone donor site from the left ilium. There is atrophy with fat replacement of the left gluteus medius muscle (T1 coronal images 13-17). MRI/Lower Ext Joint Only (Routine) IMPRESSION: Tear of the left gluteus medius tendon and atrophy of the left gluteus medius muscle. Left hip arthrosis. Tear of the left anterosuperior labrum. Left gluteus minimus tendinosis. Left greater trochanteric bursitis. Left greater trochanteric enthesopathy. Electronically Signed: Larry Doyle MD at 8:46 EDT Tel , Service support ,
== END ==
PROVIDERS: PCP Internal Medicine; Referring Provider Nurse Practitioner Family; Visit Provider Nurse Practitioner Family
DX: M25.552 Pain in left hip (principal)
CPT/HCPCS: 73721

== ENCOUNTER → 2020-12-31 14:32 | Outpatient (CLI) | payer MEDICARE, OTHER, SELFPAY ==
[2020-09-28 12:08] VITALS: BMI 25.0
--- NOTE | 2020-12-31 14:34 | BI_ITS ---
MAMMOGRAPHY - BILATERAL SCREENING REASON FOR EXAM: Female, 75 years old. Routine annual screening examination. PERTINENT HISTORY: Mother with breast cancer. TECHNIQUE: Digital bilateral breast nicolette (3D mammographic acquisition) in the CC and MLO projections. 2-D mediolateral oblique (MLO) and craniocaudad (CC) views of both breasts were obtained. CAD: Full Field Digital Mammography with Computer Added Detection was performed. COMPARISON: Comparison is made with prior study dated 10/18/2017 and 11/19/2015. FINDINGS: Breast Composition: There are scattered areas of fibroglandular density. There are no dominant masses or suspicious calcifications. No other significant abnormalities are identified. There has been no significant change since the prior study. BI/SCRN MAMM (CAD)W/NICOLETTE BILAT IMPRESSION: Stable bilateral screening mammogram. Yearly follow-up mammogram recommended. (A) ASSESSMENT CATEGORY: BIRADS Category 1: Negative. A letter regarding these results will be sent to the patient by the facility within 30 days. Approximately 10% of breast cancers are not detected by mammography. A normal mammogram should not delay biopsy of a clinically suspicious abnormality. [id number] Electronically Signed: Florian Valenzuela MD at 8:20 EDT , Service support ,
--- NOTE | 2020-12-31 14:40 | BD_ITS ---
STUDY: DUAL ENERGY X-RAY ABSORPTIOMETRY / DXA REASON FOR EXAM: Female, 75 years old. 627.8Menopausal postmenopausal BONE DENSITY REASON FOR EXAM. Loss of height. The patient status post right total hip replacement. TECHNIQUE: Bone Mineral Density (BMD) measurements of left femur and left wrist were obtained. COMPARISON: Comparison is made with prior study dated 11/19/2015. FINDINGS: Left Femur Total: g/cm2 (1.012) / T-score (0.0) / Z-score (1.9) Left Femoral Neck: g/cm2 (1.053) / T-score (0.1) / Z-score (2.1) Left Forearm: g/cm2 (0.703) / T-score (-2.0) / Z-score (0.5) The T-Scores on the most recent prior examination were: Left Femur Total: which represents a worsening of 11.7%. BD/Dexa Bone Density Study IMPRESSION: The patient is considered osteopenic as outlined below according to World [employer] Organization (WHO) criteria with a moderate fracture risk. There has been worsening of bone density since the previous examination. Reference Information: The T-score is the number of standard deviations above or below the standard which is normal for young adults at their peak bone mineral density. The World Health Organization (WHO) interprets the T-scores as follows: Above -1 Normal bone density Between -1 and -2.5 Osteopenia Equal to / or below -2.5 Osteoporosis As a practical clinical guideline, osteopenia may be graded as follows: Mild -1 through -1.5 Moderate -1.6 through -2.0 Severe -2.1 through -2.4 The Z-score is the number of standard deviations above or below age-matched controls. A Z-score of less than -1.5 would be considered abnormal. References: 1. NIH Osteoporosis and Related Bone Diseases www osteo.org 2. International Society for Clinical Densitometry www iscd.org 3. National Osteoporosis Foundation www nof.org Electronically Signed: Florian Valenzuela MD at 14:24 EDT , Service support ,
== END ==
PROVIDERS: PCP Internal Medicine; Referring Provider Internal Medicine; Visit Provider Internal Medicine
DX: Z78.0 Asymptomatic menopausal state (principal); Z12.31 Encounter for screening mammogram for malignant neoplasm of breast
CPT/HCPCS: 77063; 77067; 77080

== ENCOUNTER 2021-01-06 07:04 | Emergency (ER) | payer MEDICARE, OTHER, SELFPAY ==
[2020-09-28 12:08] VITALS: BMI 25.0
[2021-01-06 07:05] VITALS: BP 132/97; PULSE 101; RESP 16; TEMP 35.8; O2SAT 98; BMI 26.9
--- NOTE | 2021-01-06 07:34 | CT_ITS ---
STUDY: CT ABDOMEN AND PELVIS WITHOUT CONTRAST REASON FOR EXAM: Female, 75 years old. Nausea and vomiting. RADIATION DOSAGE (If Supplied By Facility): CTDIvol = ( 18.73 ) mGy, DLP = ( 853.82 ) mGycm TECHNIQUE: Transaxial images were obtained from the dome of the diaphragm to the symphysis pubis without oral contrast, and without intravenous contrast. Sagittal and coronal images were reconstructed. Individualized dose optimization techniques were used for this CT. COMPARISON: Comparison is made with prior study dated 06/11/2020. FINDINGS: Stable mild increased linear markings at the lung bases suggestive of scarring. The visualized portions of the heart are within normal limits. Normal liver. The patient is status post cholecystectomy. Normal spleen. Normal pancreas. Normal bilateral adrenal glands. Normal right kidney. There is a 1.5 cm hypodensity in the posterior aspect of the left kidney. This is incompletely small cyst. This is unchanged. Normal visualized stomach. Normal small intestine. There are multiple colonic diverticula consistent with diverticulosis. The patient is status post appendectomy. There is diffuse atherosclerotic calcification of the abdominal aorta and its major visceral branches, without a demonstrated aneurysm. Normal inferior vena cava. Normal retroperitoneum. Normal urinary bladder. There is absence of the uterus consistent with a prior hysterectomy. Normal abdominal wall. There are diffuse degenerative changes of the visualized lumbar spine. Patient is status post multilevel lumbar laminectomies and intrapedicular screw and metallic fixation. Stable loss of height of the L1 vertebra. Prior right hip replacement. CT/Abdomen/Pelvis without Cont IMPRESSION: Status post cholecystectomy, hysterectomy and appendectomy. Scattered sigmoid diverticula. No acute abnormality is seen. Electronically Signed: Florian Valenzuela MD at 8:19 EDT , Service support ,
[2021-01-06] MEDS: 0.9% Normal Saline 1,000 ML 1000 ML IV (07:51)
[2021-01-06] MEDS: Ondansetron 4 MG/2 ML Vial IV (07:52)
[2021-01-06 07:56] VITALS: BP 132/97; PULSE 101; RESP 16; TEMP 35.8; O2SAT 98
[2021-01-06 07:59] LABS: Absolute Lymphocyte Count 1.54 X10^3/uL (0.83-4.51); Absolute Neutrophil Count 5.4 X10^3/uL (2.0-7.7); Basophil# 0.05 X10^3/uL; Basophil% 0.6 % (0-1); Eosinophil# 0.18 X10^3/uL; Eosinophils% 2.3 % (0-5); Hematocrit 42.4 % (37-47); Hemoglobin 14.2 g/dL (12.0-15.0); Lymphocyte # 1.54 X10^3/ul (0.83-4.51); Lymphocyte % 19.6 % (19-41); Mean Corp Hgb Conc 33.5 g/dL (32-36); Mean Corpuscular Hgb 31.2 pg (27.0-32.0); Mean Corpuscular Volume 93.2 fL (81-99); Mean Platelet Vol. 10.3 fl (6.2-12.0); Monocyte# 0.69 X10^3/uL; Monocyte% 8.8 % (0-10); NRBC Flagged by Analyzer 0 % (0-5); Neutrophil # 5.39 X10^3/uL (2.7-7.7); Neutrophil % 68.4 % (47-70); Platelet Count 252 K/mm3 (150-450); RBC Distribution Width CV 12.5 % (11.6-14.6); Red Blood Count 4.55 M/mm3 (4.2-5.4); White Blood Count 7.9 K/mm3 (4.4-11.0)
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
[2021-01-06 08:40] LABS: AST(SGOT) 28 U/L (15-37); Alanine Aminotransfer ALT/SGPT 18 U/L (13-56); Albumin, Serum 3.7 g/dL (3.2-5.0); Alkaline Phosphatase 61 U/L (45-117); Anion Gap 9 (5-15); BUN 13 mg/dL (7-18); BUN/Creat Ratio 15.1 RATIO (10-20); Calcium,Total 8.4 mg/dL (8.5-10.1); Chloride 101 mmol/L (98-107); Creatinine, Serum 0.86 mg/dL (0.55-1.02); EST Glomerular Filtration Rate 68 mL/min (>60); Est Glom Filt Rate - Afr Amer 82 mL/min (>60); Estimated Creatinine Clearance 45.32 ml/min; Globulin 3.6 g/dL (2.2-4.2); Glucose 133 mg/dL (74-106); Magnesium 1.5 mg/dL (1.6-2.6); Potassium 3.7 mmol/L (3.5-5.1); Protein, Total 7.3 g/dL (6.4-8.2); Sodium Level 136 mmol/L (136-145)
[2021-01-06 09:26] VITALS: PULSE 88; RESP 17; O2SAT 97
== END 2021-01-06 09:27 | disposition home or self-care (01) ==
PROVIDERS: Emergency Provider Emergency Medicine; PCP Internal Medicine
DX: K52.9 Noninfective gastroenteritis and colitis, unspecified (principal); E11.9 Type 2 diabetes mellitus without complications; K21.9 Gastro-esophageal reflux disease without esophagitis; Z79.899 Other long term (current) drug therapy; Z86.711 Personal history of pulmonary embolism; Z79.84 Long term (current) use of oral hypoglycemic drugs
CPT/HCPCS: 74176; 80053; 83735; 85025; 96361; 96374; 99282; J7030; A4216; J2405

== ENCOUNTER → 2021-02-10 15:57 | Outpatient (CLI) | payer MEDICARE, OTHER, SELFPAY ==
[2021-02-10 17:33] LABS: Absolute Lymphocyte Count 2.49 X10^3/uL (0.83-4.51); Basophil# 0.05 X10^3/uL; Basophil% 0.7 % (0-1); Eosinophil# 0.35 X10^3/uL; Eosinophils% 4.6 % (0-5); Hematocrit 42.2 % (37-47); Hemoglobin 13.7 g/dL (12.0-15.0); Lymphocyte # 2.49 X10^3/ul (0.83-4.51); Lymphocyte % 32.7 % (19-41); Mean Corp Hgb Conc 32.5 g/dL (32-36); Mean Corpuscular Hgb 30.7 pg (27.0-32.0); Mean Corpuscular Volume 94.6 fL (81-99); Monocyte# 0.73 X10^3/uL; Monocyte% 9.6 % (0-10); NRBC Flagged by Analyzer 0 % (0-5); Neutrophil # 3.98 X10^3/uL (2.7-7.7); Neutrophil % 52.3 % (47-70); Platelet Count 323 K/mm3 (150-450); RBC Distribution Width CV 12.9 % (11.6-14.6); RBC Distribution Width SD 44.5 fl (35.1-43.9); Red Blood Count 4.46 M/mm3 (4.2-5.4); White Blood Count 7.6 K/mm3 (4.4-11.0)
[2021-02-10 17:57] LABS: ALB/GLOB Ratio 1.2 RATIO (0.9-2.4); AST(SGOT) 21 U/L (15-37); Alanine Aminotransfer ALT/SGPT 21 U/L (13-56); Albumin, Serum 4.2 g/dL (3.2-5.0); Alkaline Phosphatase 77 U/L (45-117); Anion Gap 7 (5-15); BUN 12 mg/dL (7-18); BUN/Creat Ratio 14.1 RATIO (10-20); CRP 5.58 mg/L (0.0-3.0); Calcium,Total 9.1 mg/dL (8.5-10.1); Chloride 98 mmol/L (98-107); Creatinine, Serum 0.85 mg/dL (0.55-1.02); EST Glomerular Filtration Rate 69 mL/min (>60); Est Glom Filt Rate - Afr Amer 83 mL/min (>60); Globulin 3.6 g/dL (2.2-4.2); Glucose 122 mg/dL (74-106); Potassium 4.1 mmol/L (3.5-5.1); Protein, Total 7.8 g/dL (6.4-8.2); Sodium Level 136 mmol/L (136-145)
[2021-02-10 18:08] LABS: Erythrocyte Sedimentation Rate 14 mm/hr (0-30)
== END ==
PROVIDERS: PCP Internal Medicine; Referring Provider Internal Medicine Rheumatology; Visit Provider Internal Medicine Rheumatology
DX: M06.4 Inflammatory polyarthropathy (principal); M79.7 Fibromyalgia; M16.0 Bilateral primary osteoarthritis of hip; K21.9 Gastro-esophageal reflux disease without esophagitis; M21.40 Flat foot [pes planus] (acquired), unspecified foot; F41.9 Anxiety disorder, unspecified; I10 Essential (primary) hypertension; E11.9 Type 2 diabetes mellitus without complications; I42.9 Cardiomyopathy, unspecified; Z79.899 Other long term (current) drug therapy
CPT/HCPCS: 36415; 80053; 85025; 85652; 86140

== ENCOUNTER 2021-02-22 15:52 | Inpatient (IN) | payer MEDICARE, OTHER, SELFPAY ==
--- NOTE | 2021-02-11 10:38 | EKG12_ITS ---
Test Reason : PREOP Blood Pressure : / mmHG Vent. Rate : 060 BPM Atrial Rate : 060 BPM P-R Int : 180 ms QRS Dur : 088 ms QT Int : 450 ms P-R-T Axes : 030 006 081 degrees QTc Int : 450 ms Normal sinus rhythm Inferior infarct (cited on or before 22-JAN-2017) Anteroseptal infarct , age undetermined Abnormal ECG Confirmed by LISANDRA ARAGON, PINEDA ([id number]), greeting card editor ZAHIRA REN ([id number]) on 02/12/2021 8:09:18 AM Referred By: Edin Page Confirmed By:PINEDA FRY MD
[2021-02-11 11:34] LABS: Absolute Lymphocyte Count 1.91 X10^3/uL (0.83-4.51); Basophil# 0.05 X10^3/uL; Basophil% 0.9 % (0-1); Eosinophils% 5.1 % (0-5); Hematocrit 40.1 % (37-47); Hemoglobin 13.1 g/dL (12.0-15.0); Lymphocyte # 1.91 X10^3/ul (0.83-4.51); Lymphocyte % 32.7 % (19-41); Mean Corp Hgb Conc 32.7 g/dL (32-36); Mean Corpuscular Volume 94.8 fL (81-99); Mean Platelet Vol. 10.4 fl (6.2-12.0); Monocyte# 0.53 X10^3/uL; Monocyte% 9.1 % (0-10); NRBC Flagged by Analyzer 0 % (0-5); Neutrophil # 3.04 X10^3/uL (2.7-7.7); Platelet Count 279 K/mm3 (150-450); RBC Distribution Width CV 12.9 % (11.6-14.6); RBC Distribution Width SD 44.7 fl (35.1-43.9); Red Blood Count 4.23 M/mm3 (4.2-5.4); White Blood Count 5.8 K/mm3 (4.4-11.0)
[2021-02-11 11:48] LABS: Magnesium 1.6 mg/dL (1.6-2.6)
[2021-02-11 12:18] LABS: Anion Gap 9 (5-15); BUN 10 mg/dL (7-18); BUN/Creat Ratio 11.1 RATIO (10-20); Calcium,Total 8.7 mg/dL (8.5-10.1); Chloride 99 mmol/L (98-107); EST Glomerular Filtration Rate 64 mL/min (>60); Est Glom Filt Rate - Afr Amer 78 mL/min (>60); Glucose 132 mg/dL (74-106); Potassium 3.7 mmol/L (3.5-5.1); Sodium Level 137 mmol/L (136-145)
[2021-02-11 12:21] LABS: Hemoglobin A1c 6.4 % (3.8-5.6)
[2021-02-22] VITALS (12 sets, daily range): BP systolic 116–157; BP diastolic 58–99; PULSE 78–89; RESP 16–18; TEMP 36.2–37.3; O2SAT 93–100; BMI 26.4
[2021-02-22 09:35] LABS: Bedside Glucose 89 mg/dL (70-110)
[2021-02-22] MEDS: Gabapentin 600 MG Tablet PO (09:48)
[2021-02-22] MEDS: Acetaminophen 500 MG Tablet 1000 MG PO ×2 (09:48→21:14)
[2021-02-22] MEDS: Lactated Ringers 1,000 ML 100 ML IV (10:00)
--- NOTE | 2021-02-22 11:00 | FEM_PTH ---
PATIENT: BEN MAHARAJ LOC: [facility] U#:[id number] AGE/SX: 75/F ROOM: [facility] [place] RE02/23/[address]: Dr. Edin Page DO : 1945 BED: 1 DIS: 02/24/2021 SPEC #: [id number] RECD: 02/22/21 14:30 STATUS: MARY REMarleny #: [id number] AVI: 02/22/21 11:[address]: Edin Page DEPT: SURGICAL PATHOLOGY RECD BY: Kennedi Salvador ENTERED: 02/23/21 09:55 SP TYPE: FEM HEAD OTHR DR: Dr. Margarita Drake DO Tissues: Femoral region, NOS Procedures: Decalcification bone/plaque Surgery Specimen Level V HEADER OPERATION: ERAS, total hip replacement PRE-OP DIAGNOSIS: Osteoarthritis left hip TISSUE SUBMITTED: Left hip bone MICROSCOPIC DIAGNOSIS Left hip bone, total hip replacement/resection: Femoral head with mild degenerative osteoarthritic changes. A piece of bone, consistent with loose body with reactive changes. Fragments of fibroadipose tissue, fibroconnective tissue and skeletal muscle tissue. SJ:rg 02/26/2021 COMMENT Case has been reviewed in consultation with Dr. Saab who concurs with the above diagnosis. IDC:AM MICROSCOPIC DESCRIPTION Slides are reviewed. GROSS DESCRIPTION Received in fixative is one container labeled with the patient's name and designated left hip bone. The specimen consists of a femoral head measuring 4.5 x 4.5 x 4.5 cm. A portion of femoral neck measures 1.5 cm in length. The articular surface displays prominent osteophyte formation and bone erosion. Also present in the specimen container are multiple irregular fragments of bone reamings and pink-yellow soft tissue measuring in aggregate 8 x 6 x 2 cm. Also present is a piece of bone that may represent loose body measuring 4 x 3 x 1 cm. Therapeutic Dietitian sections are submitted in four cassettes as follows: 1 - soft tissue, 2 - loose body, 3 & 4 - femoral head. Cassettes 2-4 are submitted after decalcification. / ESA:nava 02/23/21 TC:5 CPT: 97467, [id number]
[2021-02-22] MEDS: Cefazolin 2 GM in 0.9% Normal Saline 100 ML IV (11:06)
--- NOTE | 2021-02-22 12:29 | RAD_ITS ---
STUDY: X-RAY - PELVIS AND LEFT HIP REASON FOR EXAM: Female, 75 years old. Post Op -- AP both hips on single of op hip PACU TECHNIQUE: 2 Views views of the pelvis and hip. COMPARISON: 08/16/2020 FINDINGS: There is now noted bipolar left hip prosthesis with some air and soft tissue swelling around the area due to recent surgery. On the right side there is old total hip prosthesis. RAD/Hip Min 2 Views (Portable) IMPRESSION: Bilateral total hip replacement, the one is on the left surrounded by some air due to recent surgery. Electronically Signed: Rubio Milan, at 13:59 EDT Tel , Service support ,
--- NOTE | 2021-02-22 13:34 | OP.PCM_ITS ---
Report of Operation Date of Procedure: 02/22/21 Pre-Operative Diagnosis: OA left hip Post-Operative Diagnosis: same Surgery/Procedure Performed:: Left THR Description of Surgical Findings:: Report of Operation Date of Procedure: Pre-Operative Diagnosis: OA [left ] hip Post-Operative Diagnosis: same Surgery/Procedure Performed: [left ] THR engineer remote control diesel: Heraclio Glover PA-C Type of Anesthesia: Anesthesiologist: Specimen's removed: bone Estimated Blood Loss (400 mL): Implants: Tiago size 4 Accolade stem, 48 mm cup, MDM liner, +3 x 127 degree neck Surgical Indications: Patient has severe end-stage osteoarthritic changes in the [left ] hip. They have failed conservative measures including activity modification, anti- inflammatories, use of assistive devices. This to the point where the pain affects their ability to enjoy life and complete activities of daily living without discomfort. Patient has elected to undergo the above procedure Procedure Description: The patient was greeted in the preoperative area the [left ] hip was marked with surgical marker preoperative antibiotics administered. The patient was then taken to or suite in stable condition. Preoperative tranexamic acid was also utilized. Once the patient was placed in the supine position on the operating room table and once adequate anesthesia was obtained they were then placed in the lateral decubitus position with the surgical hip facing the field. All bony prominences were well-padded. A commercial hip position was utilized. The appropriate extremity was then prepped and draped in usual sterile fashion. Ioban was placed on the skin. Surgical timeout was performed and surgery was commenced. A standard posterior approach to the hip was then performed. Incision was planned and carried out with a #10 blade scalpel. Dissection was then carried length of the incision to the IT band which was split proximally and distally. A Charnley retractor was then placed for soft tissue retraction exposing the piriformis. A standard posterior capsulotomy was performed. Severe eburnation of bone was noted and periarticular osteophytes were identified consistent with severe end-stage osteoarthritis. A femoral neck osteotomy guide was used to yancy the proximal femur. A femoral osteotomy was then created approximately 1 fingerbreadth above the lesser trochanter. This was measured and placed on the back table. Once this was complete acetabular retractors were placed anteriorly and posteriorly. Labrum was then removed from the acetabulum exposing the entire cup of the acetabulum. Sequential reaming was then commenced and the acetabulum was medialized and sequentially widened in order to accommodate appropriate size cup. The acetabular cup was then impacted into position to the appropriate depth referencing approximately [40 ] anteversion and [ 40 ]of inclination. Excellent purchase was obtained. An appropriate size MDM liner was then placed. Attention was then turned to the femoral preparation. The hip was placed in the 90/90 position and a lateralizing box osteotome was utilized. Femoral starting awl was used followed by sequential broaching to the appropriate size. Excellent purchase was obtained with the stem no stem subsidence and excellent rotational stability was confirmed. A calcar reamer was then used in the trial head neck was placed on the broach. The hip was then located and taken through full range of motion flexion internal and external rotation as well as extension. Excellent stability was noted no impingement was identified of the components and leg lengths appear to be appropriate. The hip was at this point dislocated and the trial femoral components were removed. The final femoral stem was then implanted and impacted to the appropriate depth. Again excellent purchase was obtained no stem subsidence or rotational instability was noted. The hip was once again trialed and confirmation of leg length and stability was performed. Soft tissue tension also appeared to be appropriate. At this point the hip was redislocated and the trunnion was cleaned and dried meticulously in the appropriate size MDM femoral head was placed on the clean dry trunnion using a 12/14 Shelley taper. The hip was once again relocated and again taken through full range of motion. I did inject a cocktail of postoperative pain medication in the deep and superficial tissues. Copious irrigation was performed. Anatomic closure of the piriformis tendon was performed through drill holes in the greater trochanter. A #1 Vicryl 0 Vicryl was utilized in subcutaneous tissue and surgical christofer were placed in the skin. A well-padded nonadherent dressing was applied. Patient was taken to PACU in stable condition. No complications were identified. Will follow standard postop protocol for total hip arthroplasty. My assistant engineer played a vital role in the procedure beginning with positioning, holding retraction of soft tissues, positioning the leg to optimize visualization during the procedure and assisting with wound closure. Post-op Plan: DVT ppx; ASA 81 mg BID, thigh high compression stockings Follow up: in office in 2 weeks for wound check PT: to start POD #0 at hospital, outpatient PT should be arranged. Preoperative antibiotic: Ancef 2 grams IV Edin Page DO engineer remote control diesel: Heraclio Glover Type of Anesthesia: General Anesthesiologist: Michael Nolasco Specimen's removed: femoral head Drains: none Estimated Blood Loss (mL): 400 cc Fluids Replaced: 1000 cc crystalloid Admit VTE Documentation VTE Present on Admission: No VTE Mechan Device Prophylaxis: SCD's and Thigh High PETTY Hose VTE Pharm Prophylaxis ordered?: Yes
[2021-02-22 13:35] LABS: Bedside Glucose 163 mg/dL (70-110)
[2021-02-22] MEDS: Lactated Ringers 1,000 ML 125 ML IV ×2 (14:01→17:05)
[2021-02-22] MEDS: metFORMIN HCl 1,000 MG Tablet 1000 MG PO (17:06)
[2021-02-22] MEDS: Cefazolin 1 GM/50 ML BAG IV (18:59)
[2021-02-22] MEDS: oxyCODONE 5 MG Tablet PO (18:59)
[2021-02-22] MEDS: Aspirin 81 MG TAB.CHEW PO (21:14)
[2021-02-22] MEDS: Gabapentin 800 MG Tablet PO (21:14)
[2021-02-22] MEDS: traZODone 100 MG Tablet PO (21:14)
[2021-02-22] MEDS: Senna/Docusate Sodium 1 Tablet 2 TABLET PO (21:14)
[2021-02-22] MEDS: Pantoprazole Sodium 40 MG Tablet PO (21:15)
[2021-02-23] VITALS (7 sets, daily range): BP systolic 105–146; BP diastolic 44–70; PULSE 78–89; RESP 16–18; TEMP 37–37.9; O2SAT 87–98
[2021-02-23] MEDS: oxyCODONE 5 MG Tablet PO ×4 (01:45→17:35)
[2021-02-23] MEDS: Cefazolin 1 GM/50 ML BAG IV (01:45)
[2021-02-23] MEDS: Acetaminophen 500 MG Tablet 1000 MG PO ×3 (05:48→21:42)
[2021-02-23] MEDS: Gabapentin 800 MG Tablet PO ×3 (05:48→21:42)
[2021-02-23 06:46] LABS: Hematocrit 33.4 % (37-47); Hemoglobin 10.8 g/dL (12.0-15.0); Mean Corp Hgb Conc 32.3 g/dL (32-36); Mean Corpuscular Hgb 31.1 pg (27.0-32.0); Mean Corpuscular Volume 96.3 fL (81-99); Mean Platelet Vol. 9.9 fl (6.2-12.0); Platelet Count 216 K/mm3 (150-450); RBC Distribution Width CV 13.1 % (11.6-14.6); RBC Distribution Width SD 46.4 fl (35.1-43.9); Red Blood Count 3.47 M/mm3 (4.2-5.4); White Blood Count 7.5 K/mm3 (4.4-11.0)
[2021-02-23 07:12] LABS: Anion Gap 8 (5-15); BUN 5 mg/dL (7-18); BUN/Creat Ratio 7.2 RATIO (10-20); Calcium,Total 7.6 mg/dL (8.5-10.1); Chloride 102 mmol/L (98-107); EST Glomerular Filtration Rate 87 mL/min (>60); Est Glom Filt Rate - Afr Amer 105 mL/min (>60); Estimated Creatinine Clearance 40.68 ml/min; Glucose 131 mg/dL (74-106); Potassium 3.8 mmol/L (3.5-5.1); Sodium Level 138 mmol/L (136-145)
[2021-02-23] MEDS: Aspirin 81 MG TAB.CHEW PO ×2 (07:47→21:42)
[2021-02-23] MEDS: Senna/Docusate Sodium 1 Tablet 2 TABLET PO ×2 (07:47→21:42)
[2021-02-23] MEDS: Lisinopril 20 MG Tablet PO (07:47)
[2021-02-23] MEDS: Pantoprazole Sodium 40 MG Tablet PO ×2 (07:47→17:32)
[2021-02-23] MEDS: Potassium Chloride Oral Tablet 20 MEQ PO (07:47)
[2021-02-23] MEDS: metFORMIN HCl 1,000 MG Tablet 1000 MG PO ×2 (07:47→17:32)
[2021-02-23] MEDS: amLODIPine 10 MG Tablet PO (07:48)
--- NOTE | 2021-02-23 07:51 | PCM.PN.ORT ---
Objective Data Objective Data Patient sitting up in bed, patient states pain is well-managed. Patient denies chest pain, shortness of breath, calf pain, nausea vomiting. Patient states she is ready for discharge home. No other complaints at this time. Vital Signs: Vital Signs Temp Pulse Resp BP Pulse Ox 98.9 F 78 16 146/70 H 98 02/23/21 06:00 02/23/21 06:00 02/23/21 06:00 02/23/21 06:00 02/23/21 06:00 Oxygen Flow Rate (L/min) 2 Oxygen Delivery Method Nasal Cannula Weight: 70 kg Body Mass Index (BMI) 26.4 Intake & Output: Intake and Output for Last 24 Hours 02/21/21 02/22/21 02/23/21 23:59 23:59 23:59 Intake Total 2671.50 / 3171.50 1808.33 / 1808.33 Balance 2671.50 / 3171.50 1808.33 / 1808.33 Lab / Micro Data Result Diagrams: 02/23/21 06:20 02/23/21 06:20 Labs: Laboratory Results - last 24 hr 02/22/21 02/22/21 02/23/21 09:29 13:20 06:20 WBC 7.5 RBC 3.47 L Hgb 10.8 L Hct 33.4 L MCV 96.3 MCH 31.1 MCHC 32.3 RDW Std Deviation 46.4 H RDW Coeff of Jaleel 13.1 Plt Count 216 MPV 9.9 Sodium Potassium Chloride Carbon Dioxide Anion Gap BUN Creatinine Estim Creat Clear Calc Est GFR (MDRD) Af Amer Est GFR (MDRD) Non-Af BUN/Creatinine Ratio Glucose Calcium POC Glucose 89 163 H 02/23/21 06:20 WBC RBC Hgb Hct MCV MCH MCHC RDW Std Deviation RDW Coeff of Jaleel Plt Count MPV Sodium 138 Potassium 3.8 Chloride 102 Carbon Dioxide 28.0 Anion Gap 8 BUN 5 L Creatinine 0.70 Estim Creat Clear Calc 40.68 Est GFR (MDRD) Af Amer 105 Est GFR (MDRD) Non-Af 87 BUN/Creatinine Ratio 7.2 L Glucose 131 H Calcium 7.6 L POC Glucose Micro: Microbiology 02/11/21 10:21 Swab (Method) Nasal Screen MRSA/MSSA - Final Radiography Diagnostic Testing: Radiology Impression Hip X-Ray 02/22/21 12:29 IMPRESSION: Bilateral total hip replacement, the one is on the left surrounded by some air due to recent surgery. Electronically Signed: Rubio Milan, at 13:59 EDT Tel , Service support , Physical Exam Narrative Patient lying comfortably in bed. No respiratory distress, speaking in full sentences. Vitals and labs were all reviewed noted in medical record. Patient has good motion of the upper extremities. Patient's incision is clean dry intact. Patient has good flexion-extension of the left knee and ankle. No calf tenderness. Neurovascular is otherwise intact. Const oriented x3 HEENT moist oral mucous membranes Eyes PERRL Neuro CN's II-XII intact bilaterally Assessment & Plan Assessment/Plan (1) Status post total hip replacement, right: PLAN: 1. Continue all pain medications as prescribed 2. Aspirin 81 mg 1 p.o. every 12 hours x30 days for postop DVT prophylaxis 3. Continue physical therapy, weight-bear as tolerated with walker 4. Encourage incentive spirometry 5. Shower on 11/26/2020 6. Continue with outpatient physical therapy at [facility] 7. Follow-up as scheduled, see pink sheet
--- NOTE | 2021-02-23 07:54 | PCM.DC ---
Discharge Instructions Diet Discharge Diet: No restrictions Activity Discharge Activity: May Not Drive, May Shower and Use Walker May shower in (days): 3 May resume sexual activity in: No Restrictions Ice area for (Minutes): 30 (every hour while awake.) Weight Bearing Status: Weight bearing as tolerated Keep extremity elevated above heart level: Operative Extremity Dressing / Incision Call your doctor if your incision/area has: Continuous Slow Oozing, Sudden Increased Bleeding, Increased Pain/ Swelling, Increased Redness and Foul Smelling Discharge Call your doctor if you observe: Fever of 101 or Higher, Coldness, Increased Pain, Numbness or Tingling, Change in Color, Shortness of breath, Calf discomfort and Uncontrolled pain Change Dressing in: leave in place till F/U Remove Dressing in: leave in place till F/U Follow Up Care Please Follow Up With: Heraclio Glover PA-C When: Please call [phone] to schedule a follow up appointment. Test Results: Test results from this visit will be discussed in further detail at your follow-up appointment, if applicable. Discharge Plan Admission Admit Date/Time: 02/22/21 15:52 Primary Reason for Your Visit: right total hip Attending Provider: Edin Page Primary Care Provider: Margarita Drake Discharge Orders/Prescriptions Prescriptions: New acetaminophen 500 mg Tablet 1,000 mg PO Q8 30 Days Qty: 180 RF: 0 aspirin 81 mg Tablet,Chewable 81 mg PO BID 30 Days Qty: 60 RF: 0 oxycodone 5 mg Tablet 5 - 10 mg PO Q4H PRN MDD 12 PRN (Reason: Pain Score 4-10) 7 Days Qty: 84 RF: 0 Continued gabapentin [Neurontin] 400 MG capsule 800 mg PO TID RF: 0 ascorbic acid (vitamin C) 1,000 mg tablet 1 g PO DAILY RF: 0 vitamin E (dl, acetate) 1,000 unit capsule 1,000 unit PO DAILY RF: 0 cholecalciferol (vitamin D3) 2,000 unit capsule 2,000 unit PO DAILY RF: 0 pantoprazole 40 MG tablet 40 mg PO BID RF: 0 magnesium oxide 400 mg (241.3 mg magnesium) tablet 400 mg PO DAILY RF: 0 amlodipine-benazepril [Lotrel] 1 CAPSULE capsule 1 cap PO DAILY RF: 0 metformin 1,000 MG tablet 1,000 mg PO BID RF: 0 celecoxib [Celebrex] 200 MG capsule 200 mg PO DAILY RF: 0 potassium chloride 20 MEQ tablet 20 meq PO DAILY Qty: 15 RF: 0 ondansetron 4 mg tablet,disintegrating 4 mg PO Q8H PRN PRN (Reason: Nausea) Qty: 10 RF: 0 trazodone 100 mg Tablet 100 mg PO QHS RF: 0 Referrals / Follow Up: Margarita Drake DO [Primary Care Provider] -
--- NOTE | 2021-02-23 10:30 | CASEMGMT ---
Addendum entered by Va Duffy 02/23/21 10:53: Pt has a wheeled walker as well. Pt states she does not like to use it because it hurts her shoulders. Original Note: INDRA CAMERON Assessment: Face to Face with pt for initial transition planning/care coordination assessment. INDRA CAMERON introduced self and role at [facility], pt voices understanding and consents to assessment. Pt is A/O x4 and answers all questions appropriately at this time. Pt lying in bed, just finished on telephone in no distress. Care providers, pharmacy, and demographics verified/updated. Admitting Dx: Left Total Hip PCP: Noelle Specialists: Kaylee, ortho; Pan, pain mgmt; Pt states she will see the new neurologist in [place] but has not yet. Preferred Pharmacy: [facility] Retail this hospital stay, normally uses [facility] in [place] Insurance: [employer] Prescription Benefit: yes LW/HPOA: Pt states she does have a LW/DPOA. States her DPOA is her son Alfa Castano. She is aware that it is not on file at [facility] and is able to bring in to be scanned to her chart. LNOK: Alfa Castano, son; Rj Gianna, sig other Living Arrangements: Pt lives alone in a mobile home with two steps to enter onto the porch. Pt reports she is I in ADL's and denies concerns at home. Transportation: Pt drives self and denies concerns with transportation. Her sig other is able to take her to appts. She denies concerns with transportation. DME/HHC/SNF: Pt reports having a rollator, crutches, elevated toilet seat, manager of case management, trf bench, grab bars x2 in tub. Pt denies history of HHC or SNF stays. 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 She states she does not need it herself. She states she will not go to a half-way either as she has seen alot of that in her career. Pt is set up for outpt therapy at [facility] to begin on Monday. Pt states no concerns with going home at time of dc. Pt states no further concerns/needs. CM to follow. Advised pt to ask CM if any further question/concerns/needs arise, voices understanding. Pt Goal: Home Plan: Home with outpt therapy.
[2021-02-23] MEDS: Mag Hydrox/Al Hydrox/Simeth 30 ML UDC 15 ML PO (15:07)
--- NOTE | 2021-02-23 15:19 | CASEMGMT ---
Pt dc cancelled. RN CM in to pt room and attempted to provide list of SNF. Pt adamantly denied need and would not accept list. She states she is not going to a [place] [facility] facility and she is going home.
[2021-02-23] MEDS: 0.9% Saline Lock 10 ML Syringe IV (21:40)
[2021-02-23] MEDS: traZODone 100 MG Tablet PO (21:42)
[2021-02-24 03:40] VITALS: BP 109/59; PULSE 89; RESP 18; TEMP 37.2; O2SAT 95
[2021-02-24] MEDS: Acetaminophen 500 MG Tablet 1000 MG PO ×2 (05:34→15:01)
[2021-02-24] MEDS: Gabapentin 800 MG Tablet PO ×2 (05:34→15:01)
[2021-02-24] MEDS: oxyCODONE 5 MG Tablet PO ×2 (07:05→12:51)
[2021-02-24 08:02] VITALS: BP 97/50; PULSE 83; RESP 18; TEMP 37.1; O2SAT 94
[2021-02-24] MEDS: Potassium Chloride Oral Tablet 20 MEQ PO (08:05)
[2021-02-24] MEDS: metFORMIN HCl 1,000 MG Tablet 1000 MG PO (08:05)
[2021-02-24] MEDS: Pantoprazole Sodium 40 MG Tablet PO (08:06)
[2021-02-24] MEDS: Aspirin 81 MG TAB.CHEW PO (10:56)
[2021-02-24] MEDS: Senna/Docusate Sodium 1 Tablet 2 TABLET PO (10:56)
[2021-02-24 11:03] VITALS: BP 96/71; PULSE 85; RESP 18; TEMP 36.6; O2SAT 97
--- NOTE | 2021-02-24 11:21 | CASEMGMT ---
INDRA CAMERON NOTE: Reviewed PT note from today. Pt able to ambulate 75 ' x 2 w/CGA. INDRA CAMERON to room to talk w/pt and to discuss discharge planning. Pt states she still wishes to return home w/OP therapy. She states she feels safe to return home and does not have any concerns/needs. She states her significant other, Som, lives nearby and can help her if needed and will take her to OP therapy and any other place I need. Her 1st appt is scheduled for Monday 02/26. Karin RODRIGUEZ RN, CM
--- NOTE | 2021-02-24 11:36 | PCM.PN.ORT ---
Objective Data Objective Data Patient sitting up in bed eating lunch. Patient states pain is well-managed. Patient stated she did well in physical therapy this a.m. Patient states she is ready for discharge home. Patient denies chest pain, shortness of breath, calf pain, nausea vomiting. Vital Signs: Vital Signs Temp Pulse Resp BP Pulse Ox 97.8 F 85 18 96/71 97 02/24/21 11:03 02/24/21 11:03 02/24/21 11:03 02/24/21 11:03 02/24/21 11:03 Oxygen Flow Rate (L/min) 2 Oxygen Delivery Method Room Air Weight: 70 kg Body Mass Index (BMI) 26.4 Intake & Output: Intake and Output for Last 24 Hours 02/22/21 02/23/21 02/24/21 23:59 23:59 23:59 Intake Total 2671.50 / 3171.50 3208.33 / 3208.33 100 / 100 Balance 2671.50 / 3171.50 3208.33 / 3208.33 100 / 100 Lab / Micro Data Result Diagrams: 02/23/21 06:20 02/23/21 06:20 Micro: Microbiology 02/11/21 10:21 Swab (Method) Nasal Screen MRSA/MSSA - Final Physical Exam Narrative Patient sitting up in bed eating lunch. Patient no respiratory distress. Patient speaking in full sentences. Patient's vitals and labs were noted in the medical record. Patient is slightly hypotensive, without associated symptoms of chest pain or shortness of breath. Patient's dressing is clean dry intact. Negative signs and symptoms of DVT. Neurovascular is otherwise intact. HEENT Head and Scalp: normal to inspection Assessment & Plan Assessment/Plan (1) Status post total replacement of left hip: PLAN: 1. Continue all pain medication as prescribed. 2. Continue weightbearing as tolerated with walker. 3. Aspirin 81 mg 1 p.o. every 12 hours for 30 days for postop DVT prophylaxis 4. Discharge home today after p.m. therapy 5. Hold blood pressure medication today restart tomorrow 6. Follow-up as scheduled see pink sheet 7. Begin physical therapy outpatient, [facility] on Monday
[2021-02-24] MEDS: amLODIPine 10 MG Tablet PO (12:54)
[2021-02-24] MEDS: Lisinopril 20 MG Tablet PO (12:54)
[2021-02-24 12:55] VITALS: BP 132/98; PULSE 86; RESP 18; TEMP 37.3; O2SAT 96
[2021-02-24 15:03] VITALS: BP 104/62; PULSE 98; RESP 18; TEMP 37.2; O2SAT 95
== END 2021-02-24 15:37 | disposition home or self-care (01) | DRG 470 ==
LOC: SDC 16:25 → MS3 16:25
PROVIDERS: Anesthesiology; Admitting Provider Orthopaedic Surgery; PCP Internal Medicine; Referring Provider Orthopaedic Surgery; Visit Provider Orthopaedic Surgery
PROC: 0SRB0JZ Replacement of Left Hip Joint with Synthetic Substitute, Open Approach (ICD-10-PCS; CPT 27130; principal; 2021-02-22 10:35)
DX: M16.12 Unilateral primary osteoarthritis, left hip (principal); I51.81 Takotsubo syndrome; E11.9 Type 2 diabetes mellitus without complications; M79.7 Fibromyalgia; I10 Essential (primary) hypertension; F41.9 Anxiety disorder, unspecified; F32.9 Major depressive disorder, single episode, unspecified; Z86.718 Personal history of other venous thrombosis and embolism; Z79.01 Long term (current) use of anticoagulants; Z79.899 Other long term (current) drug therapy; Z79.84 Long term (current) use of oral hypoglycemic drugs; E78.5 Hyperlipidemia, unspecified; I25.10 Atherosclerotic heart disease of native coronary artery without angina pectoris; K21.9 Gastro-esophageal reflux disease without esophagitis; G47.33 Obstructive sleep apnea (adult) (pediatric); M06.9 Rheumatoid arthritis, unspecified
CPT/HCPCS: 36415; 73502; 80048; 82962; 83036; 83735; 85025; 85027; 87077; 87081; 88307; 88311; 93005; 97110; 97116; 97162; 97166; 97530; 97535; 99251; C1776; J7120; A4216; G0463; J2405

== ENCOUNTER 2021-02-26 15:30 | Emergency (ER) | payer MEDICARE, OTHER, SELFPAY ==
[2021-02-22 14:52] VITALS: BMI 26.4
[2021-02-26 15:31] VITALS: BP 150/87; PULSE 101; RESP 16; TEMP 36.3; O2SAT 97; BMI 27.3
--- NOTE | 2021-02-26 16:04 | VDLE_ITS ---
Reason For Study: PAIN Procedure LEFT This is a venous duplex using B-mode, color GSV is normal. flow and spectral Doppler. CFV is compressible, spontaneous, phasic, Technically difficult due to lack of pt competent, and demonstrates normal mobility s/p Left hip repl. augmentation. A preliminary report was called and/or faxed FV is compressible, spontaneous, phasic, to ED. competent and demonstrates normal augmentation. POP V is compressible, spontaneous, phasic, competent and demonstrates normal augmentation. T/P Trunk is compressible. PTV is compressible. LT PerV is compressible. VL/Venous Duplex US, Unilateral Interpretation Summary Deep veins of the left lower extremity are patent and compressible segmentally. There is no evidence of left lower extremity deep vein thrombosis. Valvular competence appears intac t within the proximal deep venous system on the left . The left great saphenous vein appears patent a nd compressible segmentally. Ordering Physician: Greg Dean Referring Physician: JOSEPH GRACE Performed By: Brooklynn Johnson, JULIETA, RVT
--- NOTE | 2021-02-26 16:05 | RAD_ITS ---
STUDY: X-RAY - PELVIS AND LEFT HIP REASON FOR EXAM: Female, 75 years old. hip pain TECHNIQUE: 3 views of the pelvis and hip. COMPARISON: None. FINDINGS: There is a non-specific bowel gas pattern. Normal visualized soft tissue structures. Normal bilateral iliac wings, sacroiliac joints and visualized sacrum. Normal bilateral superior and inferior pubic rami. Normal pubic symphysis. Normal bilateral ischial tuberosities. Status post recent hip arthroplasty with skin christofer and subcutaneous emphysema.. RAD/HIP, UNI W/ Pelvis 2-3 Views IMPRESSION: Status post recent hip arthroplasty. Electronically Signed: Keith Figueroa MD at 17:57 EDT Tel , Service support ,
--- NOTE | 2021-02-26 16:05 | RAD_ITS ---
STUDY: X-RAY CHEST REASON FOR EXAM: Female, 75 years old. weakness TECHNIQUE: Single AP portable view of the chest. COMPARISON: 12/03/2017 FINDINGS: Status post anterior cervical discectomy and fusion lower cervical spine. The lungs are clear and expanded. Elevated right hemidiaphragm which is unchanged. Normal size heart. Normal mediastinum and karthik. Normal visualized pulmonary arteries. Normal visualized aortic arch and descending thoracic aorta. Normal visualized thoracic spine. Normal visualized ribs, clavicles, and shoulders. There is no demonstrated abnormality of the visualized soft tissue structures of the upper abdomen. RAD/Chest 1 View (Portable) IMPRESSION: No active disease. Electronically Signed: Keith Figueroa MD at 17:57 EDT Tel , Service support ,
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
[2021-02-26] MEDS: Morphine 4 MG/ML Syringe IV ×2 (16:20→18:57)
[2021-02-26] MEDS: Ondansetron 4 MG/2 ML Vial IV ×2 (16:20→18:57)
[2021-02-26 16:52] LABS: Absolute Lymphocyte Count 1.04 X10^3/uL (0.83-4.51); Absolute Neutrophil Count 6.1 X10^3/uL (2.0-7.7); Basophil# 0.03 X10^3/uL; Basophil% 0.4 % (0-1); Eosinophils% 1.2 % (0-5); Hematocrit 32.6 % (37-47); Hemoglobin 10.6 g/dL (12.0-15.0); Lymphocyte # 1.04 X10^3/ul (0.83-4.51); Lymphocyte % 12.8 % (19-41); Mean Corp Hgb Conc 32.5 g/dL (32-36); Mean Corpuscular Hgb 30.7 pg (27.0-32.0); Mean Corpuscular Volume 94.5 fL (81-99); Mean Platelet Vol. 10.2 fl (6.2-12.0); Monocyte# 0.78 X10^3/uL; Monocyte% 9.6 % (0-10); NRBC Flagged by Analyzer 0 % (0-5); Neutrophil # 6.13 X10^3/uL (2.7-7.7); Neutrophil % 75.8 % (47-70); Platelet Count 273 K/mm3 (150-450); RBC Distribution Width CV 13.2 % (11.6-14.6); RBC Distribution Width SD 45.2 fl (35.1-43.9); Red Blood Count 3.45 M/mm3 (4.2-5.4); White Blood Count 8.1 K/mm3 (4.4-11.0)
[2021-02-26 17:06] LABS: ALB/GLOB Ratio 0.7 RATIO (0.9-2.4); AST(SGOT) 21 U/L (15-37); Alanine Aminotransfer ALT/SGPT 15 U/L (13-56); Albumin, Serum 2.7 g/dL (3.2-5.0); Alkaline Phosphatase 97 U/L (45-117); Anion Gap 7 (5-15); BUN 9 mg/dL (7-18); BUN/Creat Ratio 14.4 RATIO (10-20); Calcium,Total 8.5 mg/dL (8.5-10.1); Chloride 101 mmol/L (98-107); Creatinine, Serum 0.62 mg/dL (0.55-1.02); EST Glomerular Filtration Rate 98 mL/min (>60); Est Glom Filt Rate - Afr Amer 119 mL/min (>60); Estimated Creatinine Clearance 38.97 ml/min; Globulin 3.8 g/dL (2.2-4.2); Glucose 139 mg/dL (74-106); Potassium 3.7 mmol/L (3.5-5.1); Protein, Total 6.5 g/dL (6.4-8.2); Sodium Level 138 mmol/L (136-145)
[2021-02-26 18:42] LABS: Bacteria 0 SEEN /hpf (None Seen); Mucous, Urine 0 SEEN /hpf (<or=2+)
[2021-02-26 18:46] LABS: Color, Urine Yellow (Yellow); Glucose, Dipstick Normal (Normal); Ketone-Dipstick Negative (Negative); Leukocyte Esterase-Dipstick 100 /ul (Negative); Nitrite-Dipstick Negative (Negative); Occult Blood-Urine Negative /ul (Negative); Protein-Dipstick Negative (Negative); Urine Bilirubin Dipstick Negative (Negative); Urine Clarity Sl. Cloudy (Clear); Urine Urobilinogen Normal (Normal)
[2021-02-26 18:55] LABS: Red Blood Cells-Urine 0-5 SEEN /hpf (0-5); Squamous Epithelial Cells - UA 0-5 SEEN /hpf (5-10); White Blood Cells 5-10 SEEN /hpf (0-5)
[2021-02-26 19:04] VITALS: BP 140/74; PULSE 85; RESP 16; O2SAT 95
[2021-02-26 19:43] VITALS: BP 144/84
== END 2021-02-26 19:49 | disposition home or self-care (01) ==
PROVIDERS: Emergency Provider Student in an Organized Health Care Education/Training Program; PCP Internal Medicine
DX: M25.552 Pain in left hip (principal); R11.2 Nausea with vomiting, unspecified; Z86.711 Personal history of pulmonary embolism
CPT/HCPCS: 71045; 73502; 80053; 81001; 85025; 93971; 99283; J7040; A4216; J2405

== ENCOUNTER 2021-02-27 08:21 | Inpatient (IN) | payer MEDICARE, OTHER, SELFPAY ==
[2021-02-26 15:31] VITALS: BMI 27.3
[2021-02-27 08:22] VITALS: BP 135/91; PULSE 106; RESP 20; TEMP 37.2; O2SAT 95; BMI 26.2
--- NOTE | 2021-02-27 08:38 | RAD_ITS ---
History: weakness EXAMINATION/TECHNIQUE: XR Chest 1 View: Portable COMPARISON: February 26, 2021 FINDINGS: LINES/DEVICES: None. LUNGS: Left lower lobe linear density consistent with scarring or atelectasis No pneumothorax. MEDIASTINUM AND CARDIOVASCULAR STRUCTURES: Cardiac silhouette not enlarged. Central airways and mediastinal contour are unremarkable. Elevation of the right hemidiaphragm again noted. BONES AND SOFT TISSUES: Unremarkable. RAD/Chest 1 View (Portable) IMPRESSION: No radiographic evidence of acute cardiopulmonary disease. No interval change. at 1013 Reported and signed by: Daniel Pino MD Electronically Signed: Daniel Pino MD at 10:12 EDT Tel , Service support ,
--- NOTE | 2021-02-27 08:38 | EKG12_ITS ---
Test Reason : FALL Blood Pressure : / mmHG Vent. Rate : 100 BPM Atrial Rate : 100 BPM P-R Int : 162 ms QRS Dur : 072 ms QT Int : 350 ms P-R-T Axes : 062 041 071 degrees QTc Int : 451 ms Normal sinus rhythm Low voltage QRS Cannot rule out Anterior infarct , age undetermined Abnormal ECG Confirmed by LISANDRA ARAGON, PINEDA ([id number]), makeup editor MILVIA MCLEAN ([id number]) on 03/02/2021 8:43:53 AM Referred By: CL Confirmed By:PINEDA FRY MD
--- NOTE | 2021-02-27 08:38 | CT_ITS ---
EXAM: CT HEAD WITHOUT INTRAVENOUS CONTRAST : 1945 CLINICAL INDICATION: head injury TECHNIQUE: Multiple axial images were obtained of the head without intravenous contrast. This CT exam was performed using one or more of the following dose reduction techniques: automated exposure control, adjustment of the mA and/or kV according to patient size, and/or use of iterative reconstruction technique. This report was created using [employer] report generation technology. COMPARISON: May 22, 2017 FINDINGS: BRAIN AND EXTRA-AXIAL SPACES: Unremarkable. No intra- or extra-axial hemorrhage. No evidence of acute infarct. No intracranial mass or mass effect. There is preservation of the rueda/white matter interface. Posterior fossa structures are unremarkable. Ventricles are appropriate for age. No hydrocephalus. Basal cisterns are patent. BONES/JOINTS: Unremarkable. No discrete lytic or blastic abnormalities. SINUSES: Unremarkable as visualized. Clear. MASTOID AIR CELLS: Unremarkable. Clear. ORBITS: Visualized globes, extraocular muscles, optic nerves and retrobulbar fat appear unremarkable. CT/Brain/Head without Contrast IMPRESSION: 1. No acute intracranial abnormality. 2. No interval change. Individualized dose optimization techniques were used for this CT. at 1020 Reported and signed by: Daniel Pino MD Electronically Signed: Daniel Pino MD at 10:18 EDT Tel , Service support ,
--- NOTE | 2021-02-27 08:41 | CT_ITS ---
EXAM: CT CERVICAL SPINE WITHOUT INTRAVENOUS CONTRAST : 1945 CLINICAL INDICATION: neck pain TECHNIQUE: Helically acquired images were obtained of the cervical spine without intravenous contrast. 2D reformatted images were reviewed. This CT exam was performed using one or more of the following dose reduction techniques: automated exposure control, adjustment of the mA and/or kV according to patient size, and/or use of iterative reconstruction technique. This report was created using [employer] report generation technology. COMPARISON: CT cervical myelogram September 28, 2020 FINDINGS: VERTEBRAE: No change in the nonunion of the right side of the anterior C1 ring. Absence of the posterior portion of the C1 ring again noted. Posterior hypertrophic changes at the level of the vertebral body fusion again seen also unchanged from prior exam. Mild anterior listhesis of C2 on C3 unchanged. No acute fracture. No discrete lytic or blastic abnormality. Normal craniocervical junction and cervicothoracic junction. DISCS/SPINAL CANAL/NEURAL FORAMINA: Prominent ligamentous hypertrophy at the C1-2 articulation again seen. Disc implants at C3-4, C4-5 and C5-6 with anterior fusion plate appear stable. Neural foraminal narrowing on the right at the C5-6 level related to uncinate joint hypertrophy. SOFT TISSUES: Unremarkable. No prevertebral soft tissue swelling. LYMPH NODES: Unremarkable. No cervical adenopathy. LUNG APICES: Unremarkable as visualized. Clear. OTHER FINDINGS: Multilevel facet arthropathy. CT/Spine Cervical without Contras IMPRESSION: Stable postoperative and chronic degenerative changes. Individualized dose optimization techniques were used for this CT. at 1001 Reported and signed by: Daniel Pino MD Electronically Signed: Daniel Pino MD at 10:00 EDT Tel , Service support ,
--- NOTE | 2021-02-27 08:41 | RAD_ITS ---
History: Left hip pain AP pelvis and left hip, 3 views: Findings: Bilateral hip prostheses in place in satisfactory position. Soft tissue changes on the left consistent with recent arthroplasty placement. Partially visualized surgical changes noted within the spine. IMPRESSION: Satisfactory postop appearance of left hip prosthesis. at 1015 Reported and signed by: Daniel Pino MD Electronically Signed: Daniel Pino MD at 10:14 EDT Tel , Service support , RAD/Hip uni 4+ views with Pelvis
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
[2021-02-27 09:12] LABS: Absolute Lymphocyte Count 0.95 X10^3/uL (0.83-4.51); Absolute Neutrophil Count 4.8 X10^3/uL (2.0-7.7); Basophil# 0.03 X10^3/uL; Basophil% 0.5 % (0-1); Eosinophil# 0.08 X10^3/uL; Eosinophils% 1.2 % (0-5); Hematocrit 33.9 % (37-47); Hemoglobin 11.4 g/dL (12.0-15.0); Lymphocyte # 0.95 X10^3/ul (0.83-4.51); Lymphocyte % 14.6 % (19-41); Mean Corp Hgb Conc 33.6 g/dL (32-36); Mean Corpuscular Hgb 31.2 pg (27.0-32.0); Mean Corpuscular Volume 92.9 fL (81-99); Mean Platelet Vol. 9.6 fl (6.2-12.0); Monocyte# 0.67 X10^3/uL; Monocyte% 10.3 % (0-10); NRBC Flagged by Analyzer 0 % (0-5); Neutrophil # 4.75 X10^3/uL (2.7-7.7); Neutrophil % 72.9 % (47-70); Platelet Count 255 K/mm3 (150-450); RBC Distribution Width CV 13.1 % (11.6-14.6); RBC Distribution Width SD 44.8 fl (35.1-43.9); Red Blood Count 3.65 M/mm3 (4.2-5.4); White Blood Count 6.5 K/mm3 (4.4-11.0)
[2021-02-27] MEDS: fentaNYL 100 MCG/2 ML Ampul 50 MCG IV ×2 (09:12→11:24)
[2021-02-27 09:32] LABS: ALB/GLOB Ratio 0.7 RATIO (0.9-2.4); AST(SGOT) 34 U/L (15-37); Alanine Aminotransfer ALT/SGPT 21 U/L (13-56); Albumin, Serum 2.9 g/dL (3.2-5.0); Alkaline Phosphatase 100 U/L (45-117); Anion Gap 9 (5-15); BUN 7 mg/dL (7-18); BUN/Creat Ratio 10.9 RATIO (10-20); Calcium,Total 8.4 mg/dL (8.5-10.1); Chloride 100 mmol/L (98-107); Creatinine, Serum 0.64 mg/dL (0.55-1.02); EST Glomerular Filtration Rate 95 mL/min (>60); Est Glom Filt Rate - Afr Amer 115 mL/min (>60); Estimated Creatinine Clearance 40.68 ml/min; Globulin 4.1 g/dL (2.2-4.2); Glucose 145 mg/dL (74-106); Potassium 3.7 mmol/L (3.5-5.1); Sodium Level 138 mmol/L (136-145)
--- NOTE | 2021-02-27 10:51 | NURSING ---
MED SURG FREQUENT FALLS BOO
[2021-02-27 11:25] VITALS: BP 159/69; PULSE 89; RESP 17; TEMP 36.8; O2SAT 98
[2021-02-27 12:11] VITALS: BP 140/83; PULSE 95; RESP 16; TEMP 36.6; O2SAT 95
[2021-02-27 12:20] VITALS: BMI 25.9
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
[2021-02-27] MEDS: Acetaminophen 500 MG Tablet 1000 MG PO ×2 (14:42→20:56)
[2021-02-27 14:45] VITALS: BP 131/83; PULSE 90; RESP 16; TEMP 36.9; O2SAT 95
[2021-02-27] MEDS: Polyethylene Glycol 3350 17 GM PACKET PO ×2 (15:55→20:56)
[2021-02-27 16:25] LABS: Bedside Glucose 124 mg/dL (70-110)
[2021-02-27] MEDS: Aspirin 81 MG TAB.CHEW PO (16:25)
[2021-02-27] MEDS: Gabapentin 800 MG Tablet PO (16:25)
[2021-02-27 20:37] VITALS: BP 155/90; PULSE 82; RESP 18; TEMP 36.8; O2SAT 94
[2021-02-27] MEDS: traZODone 100 MG Tablet PO (20:56)
[2021-02-27] MEDS: Pantoprazole Sodium 40 MG Tablet PO (20:56)
[2021-02-27 21:05] LABS: Bedside Glucose 107 mg/dL (70-110)
[2021-02-28 00:03] LABS: Color, Urine Yellow (Yellow); Glucose, Dipstick Normal (Normal); Ketone-Dipstick Negative (Negative); Leukocyte Esterase-Dipstick 25 /ul (Negative); Mucous, Urine 0 SEEN /hpf (<or=2+); Nitrite-Dipstick Negative (Negative); Occult Blood-Urine Negative /ul (Negative); Protein-Dipstick Negative (Negative); Red Blood Cells-Urine 0 SEEN /hpf (0-5); Specific Gravity, Urine 1.005 (1.002-1.030); Urine Bilirubin Dipstick Negative (Negative); Urine Clarity Clear (Clear); Urine Urobilinogen Normal (Normal)
[2021-02-28 00:23] LABS: Bacteria RARE /hpf (None Seen); Squamous Epithelial Cells - UA 0-5 SEEN /hpf (5-10); White Blood Cells 0-5 SEEN /hpf (0-5)
[2021-02-28 02:19] VITALS: BP 137/68; PULSE 74; RESP 18; TEMP 36.4; O2SAT 94
[2021-02-28] MEDS: oxyCODONE 5 MG Tablet PO ×2 (04:38→11:23)
[2021-02-28] MEDS: Acetaminophen 500 MG Tablet 1000 MG PO ×3 (06:21→21:50)
[2021-02-28 06:36] LABS: Bedside Glucose 134 mg/dL (70-110)
[2021-02-28 07:41] VITALS: BP 130/66; PULSE 72; RESP 16; TEMP 37.1; O2SAT 93
[2021-02-28] MEDS: Ascorbic Acid 500 MG Tablet 1000 MG PO (07:53)
[2021-02-28] MEDS: Aspirin 81 MG TAB.CHEW PO ×2 (07:54→16:33)
[2021-02-28] MEDS: Gabapentin 800 MG Tablet PO ×3 (07:54→16:32)
--- NOTE | 2021-02-28 09:26 | PN.HOSP_ITS ---
Subjective Subjective Highly resistant to nursing home facility, PT evaluation is pending we will continue to try and get her to agree to SNF if it is necessary. No issues overnight Objective Data Objective Data Vital Signs: Vital Signs Temp Pulse Resp BP Pulse Ox 98.8 F 72 16 130/66 H 93 02/28/21 07:41 02/28/21 07:41 02/28/21 07:41 02/28/21 07:41 02/28/21 07:41 Oxygen Delivery Method Room Air Weight: 151 lb 7.321 oz Body Mass Index (BMI) 25.9 Lab / Micro Data Result Diagrams: 02/27/21 09:10 02/27/21 09:10 Labs: Laboratory Results - last 24 hr 02/27/21 02/27/21 02/27/21 09:10 16:21 20:59 Sodium 138 Potassium 3.7 Chloride 100 Carbon Dioxide 29.0 Anion Gap 9 BUN 7 Creatinine 0.64 Estim Creat Clear Calc 40.68 Est GFR (MDRD) Af Amer 115 Est GFR (MDRD) Non-Af 95 BUN/Creatinine Ratio 10.9 Glucose 145 H Calcium 8.4 L Total Bilirubin 0.80 AST 34 ALT 21 Alkaline Phosphatase 100 Troponin I High Sens 11.0 Total Protein 7.0 Albumin 2.9 L Globulin 4.1 Albumin/Globulin Ratio 0.7 L Urine Color Urine Clarity Urine pH Ur Specific [place] Urine Protein Urine Glucose (UA) Urine Ketones Urine Occult Blood Urine Nitrite Urine Bilirubin Urine Urobilinogen Ur Leukocyte Esterase Urine RBC Urine WBC Ur Squamous Epith Cells Urine Bacteria Urine Mucus POC Glucose 124 H 107 02/27/21 02/28/21 23:50 06:25 Sodium Potassium Chloride Carbon Dioxide Anion Gap BUN Creatinine Estim Creat Clear Calc Est GFR (MDRD) Af Amer Est GFR (MDRD) Non-Af BUN/Creatinine Ratio Glucose Calcium Total Bilirubin AST ALT Alkaline Phosphatase Troponin I High Sens Total Protein Albumin Globulin Albumin/Globulin Ratio Urine Color Yellow Urine Clarity Clear Urine pH 7.0 Ur Specific [place] 1.005 Urine Protein Negative Urine Glucose (UA) Normal Urine Ketones Negative Urine Occult Blood Negative Urine Nitrite Negative Urine Bilirubin Negative Urine Urobilinogen Normal Ur Leukocyte Esterase 25 H Urine RBC 0 SEEN Urine WBC 0-5 SEEN Ur Squamous Epith Cells 0-5 SEEN Urine Bacteria RARE Urine Mucus 0 SEEN POC Glucose 134 H Radiography Diagnostic Testing: Radiology Impression Brain CT 02/27/21 08:38 IMPRESSION: 1. No acute intracranial abnormality. 2. No interval change. Individualized dose optimization techniques were used for this CT. at 1020 Reported and signed by: Daniel Pino MD Electronically Signed: Daniel Pino MD at 10:18 EDT Tel , Service support , Chest X-Ray 02/27/21 08:38 IMPRESSION: No radiographic evidence of acute cardiopulmonary disease. No interval change. at 1013 Reported and signed by: Daniel Pino MD Electronically Signed: Daniel Pino MD at 10:12 EDT Tel , Service support , Cervical Spine CT 02/27/21 08:41 IMPRESSION: Stable postoperative and chronic degenerative changes. Individualized dose optimization techniques were used for this CT. at 1001 Reported and signed by: Daniel Pino MD Electronically Signed: Daniel Pino MD at 10:00 EDT Tel , Service support , Hip/Pelvis X-Ray 02/27/21 08:41 Rhythm Strip Rhythm Strip: Sinus Rhythm Rate: 100 Ectopy: None Physical Exam Const alert, oriented x3 and no apparent distress General Appearance: cooperative HEENT normocephalic and moist oral mucous membranes Eyes PERRL, EOMs intact bilaterally and conjunctivae normal Neck supple and no JVD Resp normal respiratory effort, no retractions, no use of accessory muscles and clear to auscultation bilaterally Auscultation: Negative for crackles, rales, rhonchi or wheezes Cardio regular rate, regular rhythm, S1 normal heart sound, S2 normal heart sound and no murmurs GI soft to palpation, non-tender and non-distended; Negative for hepatosplenomegaly Extremity no clubbing, cyanosis or edema Skin no rashes or lesions noted Skin Narrative: Dressing CDI Neuro no focal motor deficits and no sensory deficits noted Psych affect normal Appearance: appropriate Assessment & Plan Assessment/Plan (1) Status post total replacement of left hip: (2) Frequent falls: (3) Weakness: PLAN: 1. Weakness with inability to complete ADL and left hip pain status post left THR 02-22-21 -PT/OT for evaluation -X-rays negative for acute fracture displacement of prosthesis -Case management for possible placement -Pain management -She states that her outpatient pain management doctor prescribed her fentanyl patches, her boyfriend is bringing in the prescription with the box and we can continue these if the prescription is indeed appropriate. 2. HTN/HLD/history of Takotsubo's cardiomyopathy -Blood pressures are stable -Continue with her home blood pressure medications -Continue with statin 3. DM2 -We will hold her home Metformin -Sliding scale insulin -Accu-Cheks AC at bedtime 4. GERD -Stable -Continue with PPI DVT: Aspirin from Ortho and SCDs Charges/Coding Visit Charges OBSV E&M: 45984 Subsequent observation care L2
[2021-02-28] MEDS: Lisinopril 20 MG Tablet PO (10:15)
[2021-02-28] MEDS: Pantoprazole Sodium 40 MG Tablet PO ×2 (10:16→21:50)
[2021-02-28] MEDS: Celecoxib 200 MG Capsule PO (10:16)
[2021-02-28] MEDS: Polyethylene Glycol 3350 17 GM PACKET PO (10:16)
[2021-02-28] MEDS: amLODIPine 10 MG Tablet PO (10:16)
[2021-02-28 13:41] VITALS: BP 126/77; PULSE 80; RESP 16; TEMP 37; O2SAT 96
[2021-02-28 16:46] LABS: Bedside Glucose 109 mg/dL (70-110)
[2021-02-28 20:42] VITALS: BP 136/76; PULSE 72; RESP 18; TEMP 36.9; O2SAT 97
[2021-02-28 21:31] LABS: Bedside Glucose 146 mg/dL (70-110)
[2021-02-28] MEDS: traZODone 100 MG Tablet PO (21:50)
[2021-02-28 22:00] LABS: Bedside Glucose 106 mg/dL (70-110)
[2021-03-01] MEDS: oxyCODONE 5 MG Tablet PO ×2 (01:05→09:42)
[2021-03-01 02:37] VITALS: BP 110/63; PULSE 72; RESP 18; TEMP 36.8; O2SAT 95
[2021-03-01] MEDS: Acetaminophen 500 MG Tablet 1000 MG PO ×2 (06:26→14:23)
[2021-03-01 06:35] LABS: Bedside Glucose 104 mg/dL (70-110)
[2021-03-01 06:50] LABS: Absolute Lymphocyte Count 1.84 X10^3/uL (0.83-4.51); Absolute Neutrophil Count 2.6 X10^3/uL (2.0-7.7); Basophil# 0.04 X10^3/uL; Basophil% 0.8 % (0-1); Eosinophil# 0.31 X10^3/uL; Hematocrit 31.8 % (37-47); Hemoglobin 10.3 g/dL (12.0-15.0); Lymphocyte # 1.84 X10^3/ul (0.83-4.51); Lymphocyte % 35.5 % (19-41); Mean Corp Hgb Conc 32.4 g/dL (32-36); Mean Corpuscular Hgb 30.3 pg (27.0-32.0); Mean Corpuscular Volume 93.5 fL (81-99); Mean Platelet Vol. 9.5 fl (6.2-12.0); Monocyte# 0.38 X10^3/uL; Monocyte% 7.3 % (0-10); NRBC Flagged by Analyzer 0 % (0-5); Neutrophil # 2.59 X10^3/uL (2.7-7.7); Platelet Count 298 K/mm3 (150-450); RBC Distribution Width CV 12.9 % (11.6-14.6); RBC Distribution Width SD 44.2 fl (35.1-43.9); White Blood Count 5.2 K/mm3 (4.4-11.0)
[2021-03-01 07:07] LABS: Anion Gap 6 (5-15); BUN 7 mg/dL (7-18); BUN/Creat Ratio 12.2 RATIO (10-20); Chloride 106 mmol/L (98-107); Creatinine, Serum 0.58 mg/dL (0.55-1.02); EST Glomerular Filtration Rate 108 mL/min (>60); Est Glom Filt Rate - Afr Amer 131 mL/min (>60); Estimated Creatinine Clearance 40.68 ml/min; Glucose 104 mg/dL (74-106); Potassium 3.4 mmol/L (3.5-5.1); Sodium Level 140 mmol/L (136-145)
[2021-03-01 08:05] VITALS: BP 127/60; PULSE 63; RESP 16; TEMP 36.6; O2SAT 94
[2021-03-01] MEDS: amLODIPine 10 MG Tablet PO (09:06)
[2021-03-01] MEDS: Gabapentin 800 MG Tablet PO ×2 (09:06→12:29)
[2021-03-01] MEDS: Aspirin 81 MG TAB.CHEW PO (09:07)
[2021-03-01] MEDS: Lisinopril 20 MG Tablet PO (09:07)
[2021-03-01] MEDS: Pantoprazole Sodium 40 MG Tablet PO (09:07)
[2021-03-01] MEDS: Ascorbic Acid 500 MG Tablet 1000 MG PO (09:07)
[2021-03-01] MEDS: Celecoxib 200 MG Capsule PO (09:07)
--- NOTE | 2021-03-01 09:45 | CASEMGMT ---
INDRA CM Readmission Note Previous Admission: 02/23/21-02/24/21 Diagnosis: THR DC Disposition: Home with outpt PT Current Admission Presentation: weakness Pt presented to ER from home with weakness. Pt states she really doesn't remember what happened at home. She was sleeping and next thing she knew she was on the floor. Pt had taken her medications as ordered. Pt began her outpt PT. She states she had an appt today and it has been cancelled. She will reschedule. Pt is having her sig other stay with her 27/03 for short term as recommended by PT. Pt states she feels ready to dc this time and denies further needs.
[2021-03-01 11:10] LABS: Bedside Glucose 131 mg/dL (70-110)
[2021-03-01 11:27] VITALS: BP 144/72; PULSE 78; RESP 16; TEMP 36.6; O2SAT 99
[2021-03-01 14:37] VITALS: BP 130/64; PULSE 70; RESP 16; TEMP 36.8; O2SAT 96
--- NOTE | 2021-03-01 16:54 | CHAPLAIN ---
Type of Pastoral Visit _x__ Initial Visit ___ Follow-up Visit ___ On-call Visit ___ General Patient Visit ___ Spiritual Assessment ___ Family Conference ___ Bereavement ___ Rapid Response ___ Code Blue ___ Other (describe below) Pastoral Care Referral From _x__ Patient ___ Family ___ Nurse ___ Physician ___ Grading Machine Operator ___ Instructor [employer] ___ Other (describe below) Sacrament/Intervention _x__ Active listening ___ Anointing ___ Adventist ___ Bereavement ___ Communion ___ Tami exploration ___ ___ Life review ___ Prayer ___ Reconciliation ___ Sacrament of Sick ___ Supportive presence ___ Wedding ___ Other (describe below) Pastoral Comments patient states that she is doing just fine and is planning to go home today; SO is with her in room
--- NOTE | 2021-03-01 17:26 | PCM.DC ---
Discharge Instructions Diet Discharge Diet: No restrictions Activity Discharge Activity: Return to Normal Activity Weight Bearing Status: Weight bearing as tolerated Additional Activity Instructions:: follow up with physical therapy as directed Follow Up Care Test Results: Test results from this visit will be discussed in further detail at your follow-up appointment, if applicable. Discharge Plan Admission Admit Date/Time: 02/28/21 21:46 Primary Reason for Your Visit: debility Attending Provider: Ernie Friend Primary Care Provider: Margarita Drake Instructions Additional Instructions / Restrictions: Continue on your outpatient Fentanyl patches as before Discharge Orders/Prescriptions Prescriptions: Continued gabapentin [Neurontin] 400 MG capsule 800 mg PO TID RF: 0 ascorbic acid (vitamin C) 1,000 mg tablet 1 g PO DAILY RF: 0 vitamin E (dl, acetate) 1,000 unit capsule 1,000 unit PO DAILY RF: 0 cholecalciferol (vitamin D3) 2,000 unit capsule 2,000 unit PO DAILY RF: 0 pantoprazole 40 MG tablet 40 mg PO BID RF: 0 magnesium oxide 400 mg (241.3 mg magnesium) tablet 400 mg PO DAILY RF: 0 amlodipine-benazepril [Lotrel] 1 CAPSULE capsule 1 cap PO DAILY RF: 0 metformin 1,000 MG tablet 1,000 mg PO BID RF: 0 celecoxib [Celebrex] 200 MG capsule 200 mg PO DAILY RF: 0 potassium chloride 20 MEQ tablet 20 meq PO DAILY Qty: 15 RF: 0 ondansetron 4 mg tablet,disintegrating 4 mg PO Q8H PRN PRN (Reason: Nausea) Qty: 10 RF: 0 trazodone 100 mg Tablet 100 mg PO QHS RF: 0 acetaminophen 500 mg Tablet 1,000 mg PO Q8 30 Days Qty: 180 RF: 0 aspirin 81 mg Tablet,Chewable 81 mg PO BID 30 Days Qty: 60 RF: 0 oxycodone 5 mg Tablet 5 - 10 mg PO Q4H PRN MDD 12 PRN (Reason: Pain Score 4-10) 7 Days Qty: 84 RF: 0 ondansetron HCl [Zofran] 4 mg tablet 4 mg PO Q8H PRN (Reason: nausea and vomiting) Qty: 20 RF: 0 Referrals / Follow Up: Margarita Drake DO [Primary Care Provider] - In 1 Week Disposition Disposition (needs filled in before D/C Order can be placed): Home, Self Care
--- NOTE | 2021-03-02 12:13 | CASEMGMT ---
INDRA CAMERON Discharge Follow Up Phone Call: BELA: Lynne Strata:3 Call Date: 03.02.21 Discharge Date: 03.01.21 Time of Call:1200 Duration:3 min Admitting Dx: weakness INDRA CAMERON completed follow up phone call after recent hospitalization. Pt states she is doing very well. States she is working to get her house straightened up. She denies falls, pain is well controlled. Pt has an appt on Monday with outpt therapy and to also get her sutures out. She denies questions regarding her medications or dc instructions. Pt has no further questions or concerns at this time.
--- NOTE | 2021-03-03 18:31 | PCM.DC.SUM ---
Providers Date of Admission: 02/28/21 Date of Discharge: 03/01/21 Primary Care Physician: Dr. Margarita Drake DO Reason For Visit: WEAKNESS Diagnosis Discharge Diagnosis (1) Status post total replacement of left hip: Status: Acute Code(s): Z96.642 - Presence of left artificial hip joint (2) Frequent falls: Status: Acute Code(s): R29.6 - Repeated falls (3) Weakness: Status: Acute Code(s): R53.1 - Weakness Plan: Discharge diagnoses #1 debility secondary to osteoarthritis #2 type 2 diabetes #3 essential hypertension #4 GERD Medications at Discharge Home Medications pantoprazole 40 mg PO BID 01/22/17 gabapentin 400 mg capsule 800 mg PO TID cap 10/11/17 ascorbic acid (vitamin C) 1,000 mg tablet 1 g PO DAILY tab 10/22/18 cholecalciferol (vitamin D3) 50 mcg (2,000 unit) capsule 2,000 unit PO DAILY 10/22/18 magnesium oxide 400 mg (241.3 mg magnesium) tablet 400 mg PO DAILY tab 10/22/18 vitamin E (dl, acetate) 450 mg (1,000 unit) capsule 1,000 unit PO DAILY 10/22/18 amlodipine-benazepril [Lotrel] 1 cap PO DAILY 12/13/18 celecoxib [Celebrex] 200 mg PO DAILY 04/28/20 metformin 1,000 mg PO BID 04/28/20 potassium chloride 20 meq PO DAILY #15 tab 06/13/20 ondansetron 4 mg PO Q8H PRN PRN #10 tab 01/06/21 trazodone 100 mg PO QHS 02/08/21 acetaminophen 1,000 mg PO Q8 30 Days #180 tab 02/23/21 aspirin 81 mg PO BID 30 Days #60 tab 02/23/21 oxycodone 5 - 10 mg PO Q4H PRN PRN 7 Days #84 tab MDD 12 02/23/21 ondansetron HCl [Zofran] 4 mg PO Q8H PRN #20 tab 02/26/21 Hospital Course Operations None Procedures None Summary of Care Provided Minutes Spent on Discharge: 31 Hospital Course: This 75-year-old white female was seen in the emergency room at [facility] with complaints of generalized weakness and left hip pain. Patient had recently undergone a left hip replacement at [facility] approximately 6 days prior, patient stated that she had multiple falls at home. She also complained of pain in her left hip. Work-up in the emergency room included x-rays of the left hip showed no acute fracture or dislocation, CT of the brain and cervical spine were unremarkable for acute process. Patient was given fentanyl IV for pain in the emergency room, patient was admitted to [place] [address] and seen by PT and OT, patient declined placement in a senior living facility and stated she was not even sure she fell at home. On 03/01/2021, patient was seen and examined: On examination she appeared in good health and spirits, she does not appear to be in any distress. Vital signs as documented. Skin warm and dry and without overt rashes. Neck without JVD, thyroid appears normal, trachea is midline, neck is supple. Lungs clear, normal air movement was noted. Heart exam notable for regular rhythm, normal sounds and absence of murmurs, rubs or gallops. Abdomen unremarkable and without evidence of organomegaly, masses, or abdominal aortic enlargement, bowel sounds are present in all 4 quadrants, no abdominal tenderness was noted. Extremities nonedematous, no cyanosis was noted, no clubbing was noted. Neuro: Cranial nerves II through XII are grossly intact, no focal motor deficits were noted, sensation to light touch and pinprick is intact, motor exam 5/5 throughout. Psych: Patient is alert and oriented x3, she does not appear anxious or depressed, she does not appear agitated. Patient was discharged home in stable condition on 03/01/2021. Weight / BMI Weight Weight: 68.7 kg Body Mass Index (BMI) 25.9 ABG / Lab / Microbiology Data Result Diagrams: 03/01/21 06:25 03/01/21 06:25 D/C Instructions Discharge Diet: No restrictions Weight Bearing Status: Weight bearing as tolerated Additional Activity Instructions: follow up with physical therapy as directed Meaningful Use Info Meaningful Use Diagnoses (Choose all that apply): None applicable Discharge Plan Admission Admit Date/Time: 02/28/21 21:46 Primary Reason for Your Visit: debility Attending Provider: Ernie Friend Primary Care Provider: Margarita Drake Instructions Additional Instructions / Restrictions: Continue on your outpatient Fentanyl patches as before Discharge Orders/Prescriptions Prescriptions: Continued gabapentin [Neurontin] 400 MG capsule 800 mg PO TID RF: 0 ascorbic acid (vitamin C) 1,000 mg tablet 1 g PO DAILY RF: 0 vitamin E (dl, acetate) 1,000 unit capsule 1,000 unit PO DAILY RF: 0 cholecalciferol (vitamin D3) 2,000 unit capsule 2,000 unit PO DAILY RF: 0 pantoprazole 40 MG tablet 40 mg PO BID RF: 0 magnesium oxide 400 mg (241.3 mg magnesium) tablet 400 mg PO DAILY RF: 0 amlodipine-benazepril [Lotrel] 1 CAPSULE capsule 1 cap PO DAILY RF: 0 metformin 1,000 MG tablet 1,000 mg PO BID RF: 0 celecoxib [Celebrex] 200 MG capsule 200 mg PO DAILY RF: 0 potassium chloride 20 MEQ tablet 20 meq PO DAILY Qty: 15 RF: 0 ondansetron 4 mg tablet,disintegrating 4 mg PO Q8H PRN PRN (Reason: Nausea) Qty: 10 RF: 0 trazodone 100 mg Tablet 100 mg PO QHS RF: 0 acetaminophen 500 mg Tablet 1,000 mg PO Q8 30 Days Qty: 180 RF: 0 aspirin 81 mg Tablet,Chewable 81 mg PO BID 30 Days Qty: 60 RF: 0 oxycodone 5 mg Tablet 5 - 10 mg PO Q4H PRN MDD 12 PRN (Reason: Pain Score 4-10) 7 Days Qty: 84 RF: 0 ondansetron HCl [Zofran] 4 mg tablet 4 mg PO Q8H PRN (Reason: nausea and vomiting) Qty: 20 RF: 0 Referrals / Follow Up: Margarita Drake DO [Primary Care Provider] - In 1 Week Disposition Disposition (needs filled in before D/C Order can be placed): Home, Self Care Charges/Coding Visit Charges Inpatient E&M: 94494 Disch Hosp
== END 2021-03-01 17:52 | disposition home or self-care (01) | DRG 948 ==
LOC: ED 11:00 → MS3 11:07
PROVIDERS: Admitting Provider Family Medicine; Emergency Provider Emergency Medicine; PCP Internal Medicine; Visit Provider Internal Medicine
DX: R53.1 Weakness (principal); I51.81 Takotsubo syndrome; M25.552 Pain in left hip; R11.2 Nausea with vomiting, unspecified; F41.9 Anxiety disorder, unspecified; F32.9 Major depressive disorder, single episode, unspecified; G89.4 Chronic pain syndrome; E11.9 Type 2 diabetes mellitus without complications; Q07.00 Arnold-Chiari syndrome without spina bifida or hydrocephalus; M79.7 Fibromyalgia; K21.9 Gastro-esophageal reflux disease without esophagitis; E78.5 Hyperlipidemia, unspecified; I10 Essential (primary) hypertension; R29.6 Repeated falls; Z96.643 Presence of artificial hip joint, bilateral; G47.33 Obstructive sleep apnea (adult) (pediatric); I27.29 Other secondary pulmonary hypertension; M06.9 Rheumatoid arthritis, unspecified; M19.90 Unspecified osteoarthritis, unspecified site; Z86.711 Personal history of pulmonary embolism; Z79.899 Other long term (current) drug therapy; Z79.82 Long term (current) use of aspirin; Z79.84 Long term (current) use of oral hypoglycemic drugs; Z86.718 Personal history of other venous thrombosis and embolism
CPT/HCPCS: 36415; 70450; 71045; 72125; 73502; 73503; 80048; 80053; 81001; 82962; 84484; 85025; 93005; 93971; 96374; 96375; 96376; 97110; 97116; 97162; 97166; 97530; 97535; 99283; 99284; J7040; A4216; J2405

== ENCOUNTER → 2021-03-16 10:09 | Outpatient (CLI) | payer MEDICARE, OTHER, SELFPAY ==
[2021-02-27 12:20] VITALS: BMI 25.9
--- NOTE | 2021-03-16 10:15 | RAD_ITS ---
STUDY: X-RAY - CERVICAL SPINE REASON FOR EXAM: Female, 75 years old. C1 fracture with nonunion TECHNIQUE: 6 view(s) of the cervical spine were obtained including flexion and extension views.. COMPARISON: Comparison is made with prior study dated 02/15/2017. FINDINGS: Normal anterior atlantoaxial articulation. Normal odontoid process. There is straightening of the normal cervical lordosis. The patient is status post anterior fusion utilizing screw in the plate fixation device at the C3-C4 C4-C5 and C5-C6 once again, there is mild extrusion of the inferior screw at the level of the C6 vertebrae. On the flexion view, there is a 4.9 mm anterior listhesis of C2 on C3. This is reduced on the extension view. The soft tissue structures are unremarkable. RAD/Cerv Spine Obl/Flex/Ext Comp IMPRESSION: Status post multi level fusion as described. 4.9 mm anterior listhesis of C2 on C3 on the flexion view. Electronically Signed: Florian Valenzuela MD at 13:13 EDT , Service support ,
== END ==
PROVIDERS: PCP Internal Medicine; Referring Provider Psychiatry & Neurology Neurology; Visit Provider Psychiatry & Neurology Neurology
DX: M54.2 Cervicalgia (principal); S12.000A Unspecified displaced fracture of first cervical vertebra, initial encounter for closed fracture
CPT/HCPCS: 72052

== ENCOUNTER → 2021-03-19 11:19 | Outpatient (CLI) | payer MEDICARE, OTHER, SELFPAY ==
[2021-02-27 12:20] VITALS: BMI 25.9
[2021-03-19 16:42] LABS: Vitamin B12 912 pg/mL (211-911)
[2021-03-19 17:24] LABS: Thyroid Stim Hormone (TSH) 0.86 uIU/mL (0.358-3.74)
[2021-03-24 12:08] LABS: Free Lambda Light Chains 18.5 mg/L (5.7-26.3)
[2021-03-24 14:03] LABS: Vitamin B1, Thiamine 67.5 nmol/L (66.5-200.0)
== END ==
PROVIDERS: PCP Internal Medicine; Referring Provider Psychiatry & Neurology Neurology; Visit Provider Psychiatry & Neurology Neurology
DX: G62.9 Polyneuropathy, unspecified (principal); E78.5 Hyperlipidemia, unspecified
CPT/HCPCS: 36415; 82607; 82746; 83883; 84425; 84443

== ENCOUNTER → 2021-03-23 17:54 | Outpatient (CLI) | payer MEDICARE, OTHER, SELFPAY ==
[2021-03-23 15:08] VITALS: BMI 25.9
[2021-03-23 17:55] LABS: Bacteria 0 SEEN /hpf (None Seen); Mucous, Urine 0 SEEN /hpf (<or=2+); Red Blood Cells-Urine 0 SEEN /hpf (0-5)
[2021-03-23 17:58] LABS: Color, Urine Straw (Yellow); Glucose, Dipstick Normal (Normal); Ketone-Dipstick Negative (Negative); Leukocyte Esterase-Dipstick 25 /ul (Negative); Nitrite-Dipstick Negative (Negative); Occult Blood-Urine Negative /ul (Negative); Protein-Dipstick Negative (Negative); Specific Gravity, Urine 1.005 (1.002-1.030); Urine Bilirubin Dipstick Negative (Negative); Urine Clarity Clear (Clear); Urine Urobilinogen Normal (Normal)
[2021-03-23 18:11] LABS: Squamous Epithelial Cells - UA 0-5 SEEN /hpf (5-10); White Blood Cells 0-5 SEEN /hpf (0-5)
== END ==
PROVIDERS: PCP Internal Medicine; Visit Provider Physician Assistant Surgical
DX: R35.0 Frequency of micturition (principal); N39.0 Urinary tract infection, site not specified
CPT/HCPCS: 81001; 87086; 87088

== ENCOUNTER → 2021-04-08 13:26 | Outpatient (CLI) | payer MEDICARE, OTHER, SELFPAY ==
[2021-04-01 14:40] VITALS: BMI 25.9
[2021-04-08 15:01] LABS: Absolute Lymphocyte Count 2.15 X10^3/uL (0.83-4.51); Absolute Neutrophil Count 6.4 X10^3/uL (2.0-7.7); Basophil# 0.06 X10^3/uL; Basophil% 0.6 % (0-1); Eosinophil# 0.18 X10^3/uL; Eosinophils% 1.9 % (0-5); Hemoglobin 12.9 g/dL (12.0-15.0); Lymphocyte # 2.15 X10^3/ul (0.83-4.51); Lymphocyte % 23.1 % (19-41); Mean Corp Hgb Conc 30.7 g/dL (32-36); Mean Corpuscular Hgb 29.5 pg (27.0-32.0); Mean Corpuscular Volume 96.1 fL (81-99); Mean Platelet Vol. 9.8 fl (6.2-12.0); Monocyte# 0.49 X10^3/uL; Monocyte% 5.3 % (0-10); NRBC Flagged by Analyzer 0 % (0-5); Neutrophil # 6.37 X10^3/uL (2.7-7.7); Neutrophil % 68.7 % (47-70); Platelet Count 352 K/mm3 (150-450); RBC Distribution Width CV 13.2 % (11.6-14.6); RBC Distribution Width SD 47.5 fl (35.1-43.9); Red Blood Count 4.37 M/mm3 (4.2-5.4); White Blood Count 9.3 K/mm3 (4.4-11.0)
[2021-04-08 15:22] LABS: Color, Urine Yellow (Yellow); Glucose, Dipstick Normal (Normal); Ketone-Dipstick Negative (Negative); Leukocyte Esterase-Dipstick Negative /ul (Negative); Nitrite-Dipstick Negative (Negative); Occult Blood-Urine Negative /ul (Negative); Protein-Dipstick Negative (Negative); Specific Gravity, Urine 1.015 (1.002-1.030); Urine Bilirubin Dipstick Negative (Negative); Urine Clarity Clear (Clear); Urine Urobilinogen Normal (Normal)
[2021-04-08 15:34] LABS: AST(SGOT) 18 U/L (15-37); Alanine Aminotransfer ALT/SGPT 17 U/L (13-56); Albumin, Serum 3.8 g/dL (3.2-5.0); Alkaline Phosphatase 90 U/L (45-117); Anion Gap 10 (5-15); BUN 14 mg/dL (7-18); BUN/Creat Ratio 20.9 RATIO (10-20); Calcium,Total 8.5 mg/dL (8.5-10.1); Chloride 104 mmol/L (98-107); Creatinine, Serum 0.67 mg/dL (0.55-1.02); EST Glomerular Filtration Rate 91 mL/min (>60); Est Glom Filt Rate - Afr Amer 110 mL/min (>60); Globulin 3.8 g/dL (2.2-4.2); Glucose 143 mg/dL (74-106); Potassium 3.5 mmol/L (3.5-5.1); Protein, Total 7.6 g/dL (6.4-8.2); Sodium Level 138 mmol/L (136-145); Thyroid Stim Hormone (TSH) 1.19 uIU/mL (0.358-3.74)
[2021-04-08 15:35] LABS: Vitamin B12 1423 pg/mL (211-911)
== END ==
PROVIDERS: PCP Internal Medicine; Referring Provider Internal Medicine; Visit Provider Internal Medicine
DX: R53.1 Weakness (principal); R53.83 Other fatigue
CPT/HCPCS: 36415; 80053; 81002; 82607; 84443; 85025; 87086; 87088

== ENCOUNTER → 2021-04-23 10:26 | Outpatient (CLI) | payer MEDICARE, OTHER, SELFPAY ==
[2021-04-27 16:08] LABS: Albumin 3.6 g/dL (2.9-4.4); Alpha-1-Globulins 0.3 g/dL (0.0-0.4); Alpha-2-Globulins 0.9 g/dL (0.4-1.0); Gamma Globulin 1.1 g/dL (0.4-1.8); Immunoglobulin A 394 mg/dL (64-422); Immunoglobulin G 1017 mg/dL (586-1602); Immunoglobulin M 122 mg/dL (26-217); PROEL- TOTAL PROTEIN 7.1 g/dL (6.0-8.5)
== END ==
PROVIDERS: PCP Internal Medicine; Referring Provider Psychiatry & Neurology Neurology; Visit Provider Psychiatry & Neurology Neurology
DX: G62.9 Polyneuropathy, unspecified (principal)
CPT/HCPCS: 36415; 82784; 84165; 86334; 86335

== ENCOUNTER → 2021-05-14 12:32 | Outpatient (CLI) | payer MEDICARE, OTHER, SELFPAY ==
--- NOTE | 2021-05-14 14:33 | NEURO ---
NCS and/or EMG Patient Report Ordering Doctor: Galo Buckley DATE OF SERVICE: 05/14/21 Indication: Numbness in digits 1-3 of the right hand. Prior cervical fusion. Evaluate for cervical radiculopathy and/or entrapment neuropathy. Findings: Nerve conduction studies were performed in the right upper extremity. The right median motor study recording the abductor pollicis brevis showed a reduced amplitude, prolonged distal latency and markedly slowed conduction velocity. The right ulnar motor study recording the abductor digiti minimi showed a normal amplitude, normal distal latency and normal conduction velocity. No conduction block or focal slowing was present across the elbow. The right median sensory response recording digit two showed a reduced amplitude, prolonged latency and markedly slowed conduction velocity. The right ulnar sensory response recording digit five showed a normal amplitude, latency and conduction velocity. The right radial sensory response recording over the extensor snuff box showed a normal amplitude, latency and conduction velocity. Right median-ulnar lumbrical / interosseous motor latencies showed a prolonged median latency compared to the ulnar. Needle EMG of the right upper extremity and cervical paraspinal muscles was performed. Active denervation was present in the abductor pollicis brevis. No active denervation was seen in any other muscle. Motor units were large amplitude and long duration with reduced recruitment in the triceps and flexor carpi radialis muscles. In the abductor pollicis brevis, motor units were long and polyphasic with reduced recruitment. All other muscles were normal. Impression: This is an abnormal and complex study. There is electrophysiologic evidence consistent with: 1. A moderately severe, right median neuropathy across the wrist. The pathophysiology is demyelinating though there is significant secondary axonal loss. These findings are compatible with the clinical diagnosis of carpal tunnel syndrome. 2. A mild, chronic, right C7 radiculopathy. There is no active denervation within the myotome to suggest ongoing motor axon loss from this lesion. Thus, the patient has a double crush, two separate conditions that may result in upper extremity pain and similar sensory symptoms. Clinical correlation is needed in helping to determine the relative contributions of the two to the patients symptoms. Lastly, please note: because of the two co-existent conditions, this study would be theoretically insensitive in detecting an additional superimposed brachial plexopathy. Kris Del Real D.O. Multi Select Codes Neurology Neurology Interp Codes: 39227-94 Musc test done w/n test comp (interp) and 64396-57 Nrv cndj test 7-8 studies (interp)
== END ==
PROVIDERS: PCP Internal Medicine; Referring Provider Psychiatry & Neurology Neurology; Visit Provider Psychiatry & Neurology Neurology
DX: M54.2 Cervicalgia (principal); R29.898 Other symptoms and signs involving the musculoskeletal system; R20.0 Anesthesia of skin
CPT/HCPCS: 95886; 95910

== ENCOUNTER → 2021-05-19 07:32 | Outpatient (CLI) | payer MEDICARE, OTHER, SELFPAY ==
[2021-05-14 16:51] LABS: BUN 15 mg/dL (7-18); Creatinine, Serum 0.98 mg/dL (0.55-1.02); EST Glomerular Filtration Rate 59 mL/min (>60); Est Glom Filt Rate - Afr Amer 71 mL/min (>60)
--- NOTE | 2021-05-19 07:51 | MRI_ITS ---
STUDY: MRI LUMBAR SPINE WITH AND WITHOUT CONTRAST REASON FOR EXAM: Female, 75 years old. POST LAMI SYNDROME, SPONDYLOSIS, STENOSIS, RT SIDED PAIN, RT HIP PAIN TECHNIQUE: Standardized fat and water weighted pulse sequences were obtained in the sagittal and axial planes. IV 13 mL Dotarem was administered for the contrast portion of the examination. COMPARISON: 02/08/2018 FINDINGS: T12-L1: There is moderate disc space narrowing and endplates spondylosis. Mild disc bulge and moderate facet arthropathy with mild central canal stenosis. No significant foraminal stenosis. Findings are stable since the prior examination Normal lumbar lordosis. Normal conus medullaris that terminates at the L1 L1-2: There is severe disc space narrowing and endplates spondylosis. There is posterior transpedicular screw fusion and decompression laminectomy. The central canal and bilateral neural foramina are patent. There is approximately 5 cm laminectomy fluid collection which is stable. L2-3: There is mild disc space narrowing and endplates spondylosis. There is posterior transpedicular fusion and decompression laminectomy. There is no demonstrated central canal or foraminal stenosis. Findings are stable since prior examination. L3-4: There is moderate disc space narrowing and endplates spondylosis. There is posterior transpedicular fusion and decompression laminectomy. There is no demonstrated central canal or foraminal stenosis. Findings are stable since prior examination. L4-5: There is moderate disc space narrowing and endplates spondylosis. Mild disc osteophyte complex. Posterior transpedicular screw fusion and decompression laminectomy. The central canal is widely patent. There is grade 1 anterolisthesis. There is mild right and mild left foraminal stenosis. Findings are stable since the prior dimension. L5-S1: There is moderate disc space narrowing and endplates spondylosis. Moderate disc osteophyte complex with stable small left paracentral protrusion with mild left lateral recess narrowing. There is severe facet arthropathy with mild central canal stenosis. There is decompression laminectomy. The central canal is widely patent. There is moderate right and moderate left foraminal stenosis. Findings are stable since the prior examination MRI/Spine Lumbar W/WO Contrast IMPRESSION: Stable examination. L1-L5 posterior fusion and decompressive laminectomies. Electronically Signed: Jessica Tello MD at 8:27 EDT Tel , Service support ,
== END ==
PROVIDERS: PCP Internal Medicine; Referring Provider Nurse Practitioner Family; Visit Provider Nurse Practitioner Family
DX: M51.37 Other intervertebral disc degeneration, lumbosacral region (principal); M96.1 Postlaminectomy syndrome, not elsewhere classified; M47.817 Spondylosis without myelopathy or radiculopathy, lumbosacral region; M48.07 Spinal stenosis, lumbosacral region
CPT/HCPCS: 36415; 72158; 82565; 84520; A9575

== ENCOUNTER → 2021-06-02 12:28 | Outpatient (CLI) | payer MEDICARE, OTHER, SELFPAY ==
[2021-06-02 15:16] LABS: Absolute Lymphocyte Count 1.68 X10^3/uL (0.83-4.51); Absolute Neutrophil Count 3.1 X10^3/uL (2.0-7.7); Basophil# 0.06 X10^3/uL; Basophil% 1.1 % (0-1); Eosinophil# 0.25 X10^3/uL; Eosinophils% 4.6 % (0-5); Hematocrit 43.3 % (37-47); Hemoglobin 13.5 g/dL (12.0-15.0); Lymphocyte # 1.68 X10^3/ul (0.83-4.51); Lymphocyte % 30.7 % (19-41); Mean Corp Hgb Conc 31.2 g/dL (32-36); Mean Corpuscular Volume 96.2 fL (81-99); Mean Platelet Vol. 10.9 fl (6.2-12.0); Monocyte# 0.35 X10^3/uL; Monocyte% 6.4 % (0-10); NRBC Flagged by Analyzer 0 % (0-5); Neutrophil # 3.12 X10^3/uL (2.7-7.7); Platelet Count 333 K/mm3 (150-450); RBC Distribution Width CV 13.4 % (11.6-14.6); RBC Distribution Width SD 48.1 fl (35.1-43.9); White Blood Count 5.5 K/mm3 (4.4-11.0)
[2021-06-02 15:38] LABS: ALB/GLOB Ratio 0.9 RATIO (0.9-2.4); AST(SGOT) 15 U/L (15-37); Alanine Aminotransfer ALT/SGPT 16 U/L (13-56); Albumin, Serum 3.4 g/dL (3.2-5.0); Alkaline Phosphatase 82 U/L (45-117); Anion Gap 8 (5-15); BUN 11 mg/dL (7-18); BUN/Creat Ratio 14.3 RATIO (10-20); Calcium,Total 8.5 mg/dL (8.5-10.1); Chloride 103 mmol/L (98-107); Creatinine, Serum 0.77 mg/dL (0.55-1.02); EST Glomerular Filtration Rate 77 mL/min (>60); Est Glom Filt Rate - Afr Amer 93 mL/min (>60); Globulin 3.7 g/dL (2.2-4.2); Glucose 180 mg/dL (74-106); Potassium 3.4 mmol/L (3.5-5.1); Protein, Total 7.1 g/dL (6.4-8.2); Sodium Level 140 mmol/L (136-145)
== END ==
PROVIDERS: PCP Internal Medicine; Referring Provider Internal Medicine Rheumatology; Visit Provider Internal Medicine Rheumatology
DX: M06.4 Inflammatory polyarthropathy (principal); M79.7 Fibromyalgia; M16.0 Bilateral primary osteoarthritis of hip; K21.9 Gastro-esophageal reflux disease without esophagitis; M21.40 Flat foot [pes planus] (acquired), unspecified foot; F41.9 Anxiety disorder, unspecified; I10 Essential (primary) hypertension; E11.9 Type 2 diabetes mellitus without complications; G25.81 Restless legs syndrome; I42.9 Cardiomyopathy, unspecified; Z79.899 Other long term (current) drug therapy
CPT/HCPCS: 36415; 80053; 85025

== ENCOUNTER → 2021-08-04 12:01 | Outpatient (CLI) | payer MEDICARE, OTHER, SELFPAY ==
[2021-08-04 15:00] LABS: Absolute Lymphocyte Count 2.23 X10^3/uL (0.83-4.51); Absolute Neutrophil Count 3.1 X10^3/uL (2.0-7.7); Basophil# 0.06 X10^3/uL; Eosinophil# 0.32 X10^3/uL; Eosinophils% 5.1 % (0-5); Hematocrit 37.9 % (37-47); Hemoglobin 12.2 g/dL (12.0-15.0); Lymphocyte # 2.23 X10^3/ul (0.83-4.51); Lymphocyte % 35.5 % (19-41); Mean Corp Hgb Conc 32.2 g/dL (32-36); Mean Corpuscular Hgb 31.2 pg (27.0-32.0); Mean Corpuscular Volume 96.9 fL (81-99); Mean Platelet Vol. 9.9 fl (6.2-12.0); Monocyte# 0.56 X10^3/uL; Monocyte% 8.9 % (0-10); NRBC Flagged by Analyzer 0 % (0-5); Neutrophil # 3.11 X10^3/uL (2.7-7.7); Neutrophil % 49.3 % (47-70); Platelet Count 301 K/mm3 (150-450); RBC Distribution Width CV 14.4 % (11.6-14.6); RBC Distribution Width SD 49.8 fl (35.1-43.9); Red Blood Count 3.91 M/mm3 (4.2-5.4); White Blood Count 6.3 K/mm3 (4.4-11.0)
[2021-08-04 15:17] LABS: ALB/GLOB Ratio 1.2 RATIO (0.9-2.4); AST(SGOT) 13 U/L (15-37); Alanine Aminotransfer ALT/SGPT 15 U/L (13-56); Albumin, Serum 3.7 g/dL (3.2-5.0); Alkaline Phosphatase 75 U/L (45-117); Anion Gap 6 (5-15); BUN 15 mg/dL (7-18); BUN/Creat Ratio 20.3 RATIO (10-20); Calcium,Total 8.4 mg/dL (8.5-10.1); Chloride 101 mmol/L (98-107); Creatinine, Serum 0.74 mg/dL (0.55-1.02); EST Glomerular Filtration Rate 81 mL/min (>60); Est Glom Filt Rate - Afr Amer 98 mL/min (>60); Globulin 3.1 g/dL (2.2-4.2); Glucose 95 mg/dL (74-106); Protein, Total 6.8 g/dL (6.4-8.2); Sodium Level 140 mmol/L (136-145)
== END ==
PROVIDERS: PCP Internal Medicine; Referring Provider Internal Medicine Rheumatology; Visit Provider Internal Medicine Rheumatology
DX: M06.4 Inflammatory polyarthropathy (principal); M79.7 Fibromyalgia; M16.0 Bilateral primary osteoarthritis of hip; K21.9 Gastro-esophageal reflux disease without esophagitis; M21.40 Flat foot [pes planus] (acquired), unspecified foot; F41.9 Anxiety disorder, unspecified; I10 Essential (primary) hypertension; E11.9 Type 2 diabetes mellitus without complications; Z79.899 Other long term (current) drug therapy
CPT/HCPCS: 36415; 80053; 85025

== ENCOUNTER 2021-09-08 12:10 | Outpatient (CLI) | payer MEDICARE, OTHER, SELFPAY | END 2021-09-08 23:59 | disposition short-term general hospital (02) | LOC: LABSPEC 12:11 | PROVIDERS: PCP Internal Medicine; Visit Provider Physician Assistant | DX: Z11.52 Encounter for screening for COVID-19 (principal) | CPT/HCPCS: 87635; U0003; U0005 ==

== ENCOUNTER 2021-10-01 09:43 | Outpatient (CLI) | payer MEDICARE, OTHER, SELFPAY ==
[2021-10-01 12:24] LABS: Absolute Lymphocyte Count 1.45 X10^3/uL (0.83-4.51); Absolute Neutrophil Count 4.4 X10^3/uL (2.0-7.7); Basophil# 0.07 X10^3/uL; Eosinophil# 0.33 X10^3/uL; Eosinophils% 4.8 % (0-5); Hematocrit 40.7 % (37-47); Hemoglobin 13.1 g/dL (12.0-15.0); Lymphocyte # 1.45 X10^3/ul (0.83-4.51); Lymphocyte % 20.9 % (19-41); Mean Corp Hgb Conc 32.2 g/dL (32-36); Mean Corpuscular Hgb 31.8 pg (27.0-32.0); Mean Corpuscular Volume 98.8 fL (81-99); Monocyte# 0.64 X10^3/uL; Monocyte% 9.2 % (0-10); NRBC Flagged by Analyzer 0 % (0-5); Neutrophil # 4.42 X10^3/uL (2.7-7.7); Neutrophil % 63.8 % (47-70); Platelet Count 429 K/mm3 (150-450); RBC Distribution Width CV 15.5 % (11.6-14.6); Red Blood Count 4.12 M/mm3 (4.2-5.4); White Blood Count 6.9 K/mm3 (4.4-11.0)
[2021-10-01 12:46] LABS: ALB/GLOB Ratio 0.8 RATIO (0.9-2.4); AST(SGOT) 16 U/L (15-37); Alanine Aminotransfer ALT/SGPT 18 U/L (13-56); Albumin, Serum 3.4 g/dL (3.2-5.0); Alkaline Phosphatase 79 U/L (45-117); Anion Gap 9 (5-15); BUN 9 mg/dL (7-18); BUN/Creat Ratio 7.7 RATIO (10-20); Calcium,Total 8.7 mg/dL (8.5-10.1); Chloride 94 mmol/L (98-107); Creatinine, Serum 1.17 mg/dL (0.55-1.02); EST Glomerular Filtration Rate 48 mL/min (>60); Est Glom Filt Rate - Afr Amer 58 mL/min (>60); Globulin 4.1 g/dL (2.2-4.2); Glucose 150 mg/dL (74-106); Potassium 3.5 mmol/L (3.5-5.1); Protein, Total 7.5 g/dL (6.4-8.2); Sodium Level 131 mmol/L (136-145)
== END 2021-10-01 23:59 | disposition short-term general hospital (02) ==
LOC: MTLAB 09:46
PROVIDERS: PCP Internal Medicine; Referring Provider Internal Medicine Rheumatology; Visit Provider Internal Medicine Rheumatology
DX: M06.4 Inflammatory polyarthropathy (principal); I42.9 Cardiomyopathy, unspecified; E11.9 Type 2 diabetes mellitus without complications; Z79.899 Other long term (current) drug therapy; M79.7 Fibromyalgia; M15.9 Polyosteoarthritis, unspecified; M16.0 Bilateral primary osteoarthritis of hip; K21.9 Gastro-esophageal reflux disease without esophagitis; M21.40 Flat foot [pes planus] (acquired), unspecified foot; F32.89 Other specified depressive episodes; F41.9 Anxiety disorder, unspecified; I10 Essential (primary) hypertension; Z85.43 Personal history of malignant neoplasm of ovary; G25.81 Restless legs syndrome
CPT/HCPCS: 36415; 80053; 85025

== ENCOUNTER 2021-11-05 12:15 | Outpatient (CLI) | payer MEDICARE, OTHER, SELFPAY ==
[2021-11-05 15:35] LABS: Anion Gap 8 (5-15); BUN 7 mg/dL (7-18); BUN/Creat Ratio 9.9 RATIO (10-20); Calcium,Total 8.9 mg/dL (8.5-10.1); Chloride 99 mmol/L (98-107); EST Glomerular Filtration Rate 85 mL/min (>60); Est Glom Filt Rate - Afr Amer 103 mL/min (>60); Glucose 104 mg/dL (74-106); Potassium 3.4 mmol/L (3.5-5.1); Sodium Level 135 mmol/L (136-145)
== END 2021-11-05 23:59 | disposition home or self-care (01) ==
LOC: MTLAB 12:18
PROVIDERS: PCP Internal Medicine; Referring Provider Internal Medicine Rheumatology; Visit Provider Internal Medicine Rheumatology
DX: M06.4 Inflammatory polyarthropathy (principal); I42.9 Cardiomyopathy, unspecified; E11.9 Type 2 diabetes mellitus without complications; M79.7 Fibromyalgia; M65.352 Trigger finger, left little finger; M16.0 Bilateral primary osteoarthritis of hip; M19.041 Primary osteoarthritis, right hand; F41.9 Anxiety disorder, unspecified; I10 Essential (primary) hypertension; G25.81 Restless legs syndrome; H93.13 Tinnitus, bilateral; K21.9 Gastro-esophageal reflux disease without esophagitis; Z85.43 Personal history of malignant neoplasm of ovary
CPT/HCPCS: 36415; 80048

== ENCOUNTER → 2022-01-05 | Outpatient (CLI) | payer MEDICARE, OTHER, SELFPAY ==
[2022-01-05 10:13] LABS: Absolute Lymphocyte Count 3.01 X10^3/uL (0.83-4.51); Absolute Neutrophil Count 3.7 X10^3/uL (2.0-7.7); Basophil# 0.06 X10^3/uL; Basophil% 0.8 % (0-1); Eosinophil# 0.12 X10^3/uL; Eosinophils% 1.6 % (0-5); Hematocrit 42.6 % (37-47); Hemoglobin 13.9 g/dL (12.0-15.0); Lymphocyte # 3.01 X10^3/ul (0.83-4.51); Lymphocyte % 40.7 % (19-41); Mean Corp Hgb Conc 32.6 g/dL (32-36); Mean Corpuscular Hgb 31.9 pg (27.0-32.0); Mean Corpuscular Volume 97.7 fL (81-99); Mean Platelet Vol. 10.3 fl (6.2-12.0); Monocyte# 0.46 X10^3/uL; Monocyte% 6.2 % (0-10); NRBC Flagged by Analyzer 0 % (0-5); Neutrophil # 3.73 X10^3/uL (2.7-7.7); Neutrophil % 50.4 % (47-70); Platelet Count 225 K/mm3 (150-450); RBC Distribution Width CV 14.1 % (11.6-14.6); RBC Distribution Width SD 50.8 fl (35.1-43.9); Red Blood Count 4.36 M/mm3 (4.2-5.4); White Blood Count 7.4 K/mm3 (4.4-11.0)
[2022-01-05 10:36] LABS: ALB/GLOB Ratio 1.2 RATIO (0.9-2.4); AST(SGOT) 17 U/L (15-37); Alanine Aminotransfer ALT/SGPT 22 U/L (13-56); Albumin, Serum 3.9 g/dL (3.2-5.0); Alkaline Phosphatase 65 U/L (45-117); Anion Gap 7 (5-15); BUN 12 mg/dL (7-18); BUN/Creat Ratio 14.9 RATIO (10-20); Calcium,Total 8.6 mg/dL (8.5-10.1); Chloride 103 mmol/L (98-107); EST Glomerular Filtration Rate 73 mL/min (>60); Est Glom Filt Rate - Afr Amer 89 mL/min (>60); Globulin 3.3 g/dL (2.2-4.2); Glucose 109 mg/dL (74-106); Potassium 3.3 mmol/L (3.5-5.1); Protein, Total 7.2 g/dL (6.4-8.2); Sodium Level 140 mmol/L (136-145)
== END | disposition home or self-care (01) ==
LOC: MTLAB 09:17
PROVIDERS: PCP Internal Medicine; Referring Provider Internal Medicine Rheumatology; Visit Provider Internal Medicine Rheumatology
DX: M06.4 Inflammatory polyarthropathy (principal); E11.9 Type 2 diabetes mellitus without complications; M79.7 Fibromyalgia; M65.352 Trigger finger, left little finger; M16.0 Bilateral primary osteoarthritis of hip; M19.041 Primary osteoarthritis, right hand; M21.40 Flat foot [pes planus] (acquired), unspecified foot; F32.89 Other specified depressive episodes; F41.9 Anxiety disorder, unspecified; I10 Essential (primary) hypertension; Z79.899 Other long term (current) drug therapy
CPT/HCPCS: 36415; 80053; 85025

== ENCOUNTER 2022-01-23 16:41 | Emergency (ER) | payer MEDICARE, OTHER, SELFPAY ==
[2022-01-23 16:41] VITALS: BP 148/105; PULSE 104; RESP 16; TEMP 36.3; O2SAT 94; BMI 23.1
--- NOTE | 2022-01-23 18:26 | EKG12_ITS ---
Test Reason : DIZZINESS Blood Pressure : / mmHG Vent. Rate : 077 BPM Atrial Rate : 077 BPM P-R Int : 182 ms QRS Dur : 074 ms QT Int : 394 ms P-R-T Axes : 017 -13 076 degrees QTc Int : 445 ms Normal sinus rhythm Low voltage QRS Inferior infarct , age undetermined Abnormal ECG Confirmed by LISANDRA ARAGON, PINEDA ([id number]), video editor MILVIA MCLEAN ([id number]) on 01/25/2022 7:16:50 AM Referred By: MICHAEL Confirmed By:PINEDA FRY MD
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
--- NOTE | 2022-01-23 18:49 | EKG12_ITS ---
Test Reason : WEAKNESS Blood Pressure : / mmHG Vent. Rate : 071 BPM Atrial Rate : 071 BPM P-R Int : 150 ms QRS Dur : 078 ms QT Int : 410 ms P-R-T Axes : 048 -17 032 degrees QTc Int : 445 ms Suspect unspecified pacemaker failure Sinus rhythm with Premature atrial complexes Voltage criteria for left ventricular hypertrophy Abnormal ECG Confirmed by LISANDRA ARAGON, PINEDA ([id number]), web content editor MILVIA MCLEAN ([id number]) on 01/25/2022 7:18:24 AM Referred By: YARITZA Confirmed By:PINEDA FRY MD
[2022-01-23 19:03] VITALS: BP 142/79; PULSE 86; RESP 14; O2SAT 95
[2022-01-23] MEDS: 0.9% Normal Saline 1,000 ML 1000 ML IV (19:05)
[2022-01-23] MEDS: Ondansetron 4 MG/2 ML Vial IV (19:05)
[2022-01-23 19:06] VITALS: BP 126/90; BP 140/80; BP 146/92; PULSE 104; PULSE 81; PULSE 92
[2022-01-23 19:12] LABS: Absolute Lymphocyte Count 1.77 X10^3/uL (0.83-4.51); Absolute Neutrophil Count 3.2 X10^3/uL (2.0-7.7); Basophil# 0.04 X10^3/uL; Basophil% 0.7 % (0-1); Eosinophil# 0.16 X10^3/uL; Eosinophils% 2.8 % (0-5); Hematocrit 40.4 % (37-47); Hemoglobin 13.3 g/dL (12.0-15.0); Lymphocyte # 1.77 X10^3/ul (0.83-4.51); Lymphocyte % 30.6 % (19-41); Mean Corp Hgb Conc 32.9 g/dL (32-36); Mean Corpuscular Volume 97.3 fL (81-99); Mean Platelet Vol. 10.6 fl (6.2-12.0); Monocyte# 0.57 X10^3/uL; Monocyte% 9.8 % (0-10); NRBC Flagged by Analyzer 0 % (0-5); Neutrophil # 3.23 X10^3/uL (2.7-7.7); Neutrophil % 55.8 % (47-70); Platelet Count 290 K/mm3 (150-450); RBC Distribution Width CV 14.4 % (11.6-14.6); RBC Distribution Width SD 51.2 fl (35.1-43.9); Red Blood Count 4.15 M/mm3 (4.2-5.4); White Blood Count 5.8 K/mm3 (4.4-11.0)
[2022-01-23 19:40] LABS: Anion Gap 5 (5-15); BUN 6 mg/dL (7-18); BUN/Creat Ratio 8.6 RATIO (10-20); Calcium,Total 8.9 mg/dL (8.5-10.1); Chloride 103 mmol/L (98-107); Creatinine, Serum 0.69 mg/dL (0.55-1.02); EST Glomerular Filtration Rate 87 mL/min (>60); Est Glom Filt Rate - Afr Amer 105 mL/min (>60); Estimated Creatinine Clearance 40.04 ml/min; Glucose 91 mg/dL (74-106); Potassium 3.9 mmol/L (3.5-5.1); Sodium Level 138 mmol/L (136-145); Troponin-I HS 9 pg/mL (3.0-54.0)
[2022-01-23 20:06] LABS: Bacteria 0 SEEN /hpf (None Seen); Mucous, Urine 0 SEEN /hpf (<or=2+); Red Blood Cells-Urine 0 SEEN /hpf (0-5)
[2022-01-23 20:07] LABS: Color, Urine Yellow (Yellow); Glucose, Dipstick Normal (Normal); Ketone-Dipstick Negative (Negative); Leukocyte Esterase-Dipstick 100 /ul (Negative); Nitrite-Dipstick Negative (Negative); Occult Blood-Urine Negative /ul (Negative); Protein-Dipstick Negative (Negative); Urine Bilirubin Dipstick Negative (Negative); Urine Clarity Sl. Cloudy (Clear); Urine Urobilinogen Normal (Normal)
[2022-01-23] MEDS: 0.9% Normal Saline 1,000 ML 150 ML IV (20:20)
[2022-01-23 20:28] LABS: Squamous Epithelial Cells - UA 0-5 SEEN /hpf (5-10); White Blood Cells 0-5 SEEN /hpf (0-5)
--- NOTE | 2022-01-23 21:00 | CT_ITS ---
STUDY: CT BRAIN WITHOUT CONTRAST REASON FOR EXAM: Female, 76 years old. dizziness, headache, off balance RADIATION DOSAGE (If Supplied By Facility): CTDIvol = ( 44.99 ) mGy, DLP = ( 829.85 ) mGycm TECHNIQUE: Transaxial CT imaging of the brain was performed without administration of intravenous contrast material. Individualized dose optimization techniques were used for this CT. COMPARISON: 02/27/2021 FINDINGS: Normal soft tissue structures. There is hyperostosis frontalis internus. Normal size ventricles and extra-axial spaces for the patient''s age. Normal white matter tracts of the cerebral hemispheres. Normal basal ganglia and thalami. Normal brainstem. Normal cerebellum. There is no intracranial hemorrhage. There are no findings of an acute ischemic infarction. Normal visualized paranasal sinuses. CT/Brain/Head without Contrast IMPRESSION: Normal unenhanced CT scan of the brain. Electronically Signed: Keith Figueroa MD at 21:30 EDT ,
[2022-01-23 21:34] VITALS: BP 148/96; PULSE 83; O2SAT 95
== END 2022-01-23 22:01 | disposition home or self-care (01) ==
PROVIDERS: Emergency Provider Emergency Medicine; PCP Internal Medicine; Visit Provider Emergency Medicine
DX: R42 Dizziness and giddiness (principal); I42.8 Other cardiomyopathies; E11.9 Type 2 diabetes mellitus without complications; I25.10 Atherosclerotic heart disease of native coronary artery without angina pectoris; R11.0 Nausea; I10 Essential (primary) hypertension; E78.5 Hyperlipidemia, unspecified; M19.90 Unspecified osteoarthritis, unspecified site; Z86.718 Personal history of other venous thrombosis and embolism; F41.9 Anxiety disorder, unspecified; F32.A Depression, unspecified; K21.9 Gastro-esophageal reflux disease without esophagitis; Z86.711 Personal history of pulmonary embolism; K44.9 Diaphragmatic hernia without obstruction or gangrene; Z79.899 Other long term (current) drug therapy; Z79.84 Long term (current) use of oral hypoglycemic drugs
CPT/HCPCS: 96374; 96361; 70450; 80048; 81001; 84484; 85025; 93005; 99285; J7030; A4216; J2405

== ENCOUNTER 2022-02-02 10:29 | Emergency (ER) | payer MEDICARE, OTHER, SELFPAY ==
[2022-02-02 10:30] VITALS: BP 131/93; PULSE 69; RESP 17; TEMP 36.2; O2SAT 100; BMI 24.0
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
--- NOTE | 2022-02-02 11:30 | CT_ITS ---
STUDY: CT ABDOMEN AND PELVIS WITH CONTRAST REASON FOR EXAM: Female, 76 years old. Abdominal pain -- IV PO Contrast. Increased weakness and nausea and vomiting. History of ovarian carcinoma. RADIATION DOSAGE (If Supplied By Facility): CTDIvol = ( 12.54 ) mGy, DLP = ( 557.56 ) mGycm TECHNIQUE: Transaxial images were obtained from the dome of the diaphragm to the symphysis pubis with oral contrast. Oral and amp; IV Gastrografin and amp; 100mL Isovue-300 was administered. Sagittal and coronal images were reconstructed. Individualized dose optimization techniques were used for this CT. COMPARISON: Comparison is made with prior study dated 01/06/2021. FINDINGS: Stable increased linear markings at the left lung base suggestive of scarring. Coronary artery calcification. There is decreased attenuation of the liver consistent with steatosis. The patient is status post cholecystectomy. Mild degree of central intrahepatic biliary ductal dilatation. The common bile duct is mildly dilated down to the region of the ampulla of VATER. Normal spleen. There is diffuse atrophy of the pancreas. Normal bilateral adrenal glands. Normal right kidney. There is a 2.1 cm cyst in the posterior midportion of the left kidney. There is a small hiatal hernia. Normal small intestine. Large amount of fecal material is seen throughout the colon. The patient is status post appendectomy. There is diffuse atherosclerotic calcification of the abdominal aorta and its major visceral branches, without a demonstrated aneurysm. Normal inferior vena cava. Normal retroperitoneum. Normal urinary bladder. There is absence of the uterus consistent with a prior hysterectomy. Normal abdominal wall. There are diffuse degenerative changes of the visualized lumbar spine. Bilateral total hip replacement limiting assessment of the pelvic structures due to beam hardening artifact. Multilevel laminectomy and interpedicular screw fixation throughout the lumbar spine. Grade 1 anterolisthesis of L4 on L5. Loss of height of the L1 vertebrae. CT/Abdomen/Pelvis WITH Contrast IMPRESSION: Diffuse fatty infiltration of the liver. Mild degree of central intrahepatic ductal dilatation. Large amount of fecal material is seen in the colon. Left renal cyst. Electronically Signed: Florian Valenzuela MD at 14:02 EDT ,
[2022-02-02] MEDS: 0.9% Normal Saline 1,000 ML 1000 ML IV (11:55)
[2022-02-02] MEDS: Ondansetron 4 MG/2 ML Vial IV (11:55)
[2022-02-02 12:06] LABS: Absolute Lymphocyte Count 1.32 X10^3/uL (0.83-4.51); Basophil# 0.05 X10^3/uL; Basophil% 0.8 % (0-1); Eosinophils% 1.7 % (0-5); Hematocrit 43.8 % (37-47); Hemoglobin 13.8 g/dL (12.0-15.0); Lymphocyte # 1.32 X10^3/ul (0.83-4.51); Lymphocyte % 22.1 % (19-41); Mean Corp Hgb Conc 31.5 g/dL (32-36); Mean Corpuscular Hgb 32.3 pg (27.0-32.0); Mean Corpuscular Volume 102.6 fL (81-99); Mean Platelet Vol. 11.3 fl (6.2-12.0); Monocyte# 0.54 X10^3/uL; NRBC Flagged by Analyzer 0 % (0-5); Neutrophil # 3.95 X10^3/uL (2.7-7.7); Neutrophil % 66.1 % (47-70); Platelet Count 247 K/mm3 (150-450); RBC Distribution Width CV 15.1 % (11.6-14.6); RBC Distribution Width SD 56.6 fl (35.1-43.9); Red Blood Count 4.27 M/mm3 (4.2-5.4)
--- NOTE | 2022-02-02 12:12 | NURSING ---
CHEMISTRIES HEMOLIZED
[2022-02-02 13:11] LABS: Bacteria 0 SEEN /hpf (None Seen); Mucous, Urine 0 SEEN /hpf (<or=2+); Red Blood Cells-Urine 0 SEEN /hpf (0-5)
[2022-02-02 13:15] LABS: Color, Urine Yellow (Yellow); Glucose, Dipstick Normal (Normal); Ketone-Dipstick Negative (Negative); Leukocyte Esterase-Dipstick 500 /ul (Negative); Nitrite-Dipstick Negative (Negative); Occult Blood-Urine Negative /ul (Negative); Protein-Dipstick Negative (Negative); Specific Gravity, Urine 1.005 (1.002-1.030); Urine Bilirubin Dipstick Negative (Negative); Urine Clarity Clear (Clear); Urine Urobilinogen Normal (Normal)
[2022-02-02 13:23] LABS: AST(SGOT) 21 U/L (15-37); Alanine Aminotransfer ALT/SGPT 18 U/L (13-56); Albumin, Serum 3.7 g/dL (3.2-5.0); Alkaline Phosphatase 77 U/L (45-117); Anion Gap 6 (5-15); BUN 6 mg/dL (7-18); BUN/Creat Ratio 8.4 RATIO (10-20); Calcium,Total 9.1 mg/dL (8.5-10.1); Chloride 102 mmol/L (98-107); Creatinine, Serum 0.71 mg/dL (0.55-1.02); EST Glomerular Filtration Rate 84 mL/min (>60); Est Glom Filt Rate - Afr Amer 102 mL/min (>60); Estimated Creatinine Clearance 40.04 ml/min; Globulin 3.7 g/dL (2.2-4.2); Glucose 98 mg/dL (74-106); Lipase 23 U/L (73-393); Potassium 3.6 mmol/L (3.5-5.1); Protein, Total 7.4 g/dL (6.4-8.2); Sodium Level 141 mmol/L (136-145)
[2022-02-02 13:26] LABS: Squamous Epithelial Cells - UA 0-5 SEEN /hpf (5-10); White Blood Cells 0-5 SEEN /hpf (0-5)
[2022-02-02 13:53] VITALS: BP 146/78; PULSE 69; RESP 16; O2SAT 94
[2022-02-02 15:02] VITALS: BP 150/80; PULSE 70; RESP 16; O2SAT 94
[2022-02-02 15:58] VITALS: BP 95/76; PULSE 91; RESP 16; O2SAT 94
[2022-02-02 16:14] VITALS: RESP 18
== END 2022-02-02 16:14 | disposition home or self-care (01) ==
PROVIDERS: Emergency Provider Emergency Medicine; PCP Internal Medicine; Visit Provider Emergency Medicine
DX: R11.2 Nausea with vomiting, unspecified (principal); E11.9 Type 2 diabetes mellitus without complications; I25.10 Atherosclerotic heart disease of native coronary artery without angina pectoris; K21.9 Gastro-esophageal reflux disease without esophagitis; G47.33 Obstructive sleep apnea (adult) (pediatric); Z79.899 Other long term (current) drug therapy; Z79.84 Long term (current) use of oral hypoglycemic drugs; Z86.718 Personal history of other venous thrombosis and embolism; Z86.711 Personal history of pulmonary embolism
CPT/HCPCS: 74177; 80053; 81001; 83690; 85025; 96361; 96374; 99283; J7030; Q9967; A4216; J2405

== ENCOUNTER 2022-02-07 13:22 | Emergency (ER) | payer MEDICARE, OTHER, SELFPAY ==
[2022-02-07 13:23] VITALS: BP 176/88; PULSE 82; RESP 14; TEMP 36.3; O2SAT 94; BMI 22.6
--- NOTE | 2022-02-07 13:26 | RAD_ITS ---
STUDY: X-RAY CHEST REASON FOR EXAM: Female, 76 years old. Chest pain TECHNIQUE: Single AP portable view of the chest. COMPARISON: Comparison is made with prior study dated 09/22/2021. FINDINGS: Hyperinflation. The lungs are clear. There is no demonstrated pleural abnormality. There is mild cardiac enlargement. Normal mediastinum and karthik. Normal visualized pulmonary arteries. There is atherosclerotic tortuosity of the aortic arch and descending thoracic aorta. There are diffuse degenerative changes of the visualized thoracic spine. Prior fusion of the lower cervical spine as well as the visualized superior aspect of the lumbar spine. There is no demonstrated abnormality of the visualized soft tissue structures of the upper abdomen. RAD/Chest 1 View (Portable) IMPRESSION: Hyperinflation. The lungs are clear. Mild cardiomegaly. Electronically Signed: Florian Valenzuela MD at 14:13 EDT ,
--- NOTE | 2022-02-07 13:26 | EKG12_ITS ---
Test Reason : CP Blood Pressure : / mmHG Vent. Rate : 078 BPM Atrial Rate : 078 BPM P-R Int : 180 ms QRS Dur : 074 ms QT Int : 398 ms P-R-T Axes : 062 074 113 degrees QTc Int : 453 ms Normal sinus rhythm Low voltage QRS Poor R wave progression Anterior [place], age undetermined, cannot be excluded Confirmed by OMAR ARAGON, CADE ([id number]), editor & co founder MILVIA MCLEAN ([id number]) on 02/08/2022 1:42:27 PM Referred By: NAZIA Confirmed By:CADE NELSON MD
[2022-02-07 15:01] LABS: Absolute Lymphocyte Count 1.47 X10^3/uL (0.83-4.51); Absolute Neutrophil Count 3.5 X10^3/uL (2.0-7.7); Basophil# 0.05 X10^3/uL; Basophil% 0.9 % (0-1); Eosinophil# 0.09 X10^3/uL; Eosinophils% 1.6 % (0-5); Hematocrit 42.6 % (37-47); Hemoglobin 13.8 g/dL (12.0-15.0); Lymphocyte # 1.47 X10^3/ul (0.83-4.51); Lymphocyte % 26.5 % (19-41); Mean Corp Hgb Conc 32.4 g/dL (32-36); Mean Corpuscular Hgb 31.9 pg (27.0-32.0); Mean Corpuscular Volume 98.6 fL (81-99); Mean Platelet Vol. 10.7 fl (6.2-12.0); Monocyte# 0.43 X10^3/uL; Monocyte% 7.8 % (0-10); NRBC Flagged by Analyzer 0 % (0-5); Neutrophil # 3.48 X10^3/uL (2.7-7.7); Neutrophil % 62.8 % (47-70); Platelet Count 249 K/mm3 (150-450); RBC Distribution Width CV 14.4 % (11.6-14.6); RBC Distribution Width SD 52.4 fl (35.1-43.9); Red Blood Count 4.32 M/mm3 (4.2-5.4); White Blood Count 5.5 K/mm3 (4.4-11.0)
[2022-02-07 15:30] VITALS: PULSE 96; RESP 22; O2SAT 100
[2022-02-07 15:44] LABS: Anion Gap 3 (5-15); BUN 4 mg/dL (7-18); BUN/Creat Ratio 5.8 RATIO (10-20); Calcium,Total 8.5 mg/dL (8.5-10.1); Chloride 102 mmol/L (98-107); Creatinine, Serum 0.69 mg/dL (0.55-1.02); EST Glomerular Filtration Rate 88 mL/min (>60); Est Glom Filt Rate - Afr Amer 106 mL/min (>60); Estimated Creatinine Clearance 40.04 ml/min; Glucose 118 mg/dL (74-106); Potassium 3.6 mmol/L (3.5-5.1); Sodium Level 140 mmol/L (136-145); Troponin-I HS < 3 pg/mL (3.0-54.0)
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
[2022-02-07] MEDS: 0.9% Normal Saline 1,000 ML 999 ML IV (15:56)
[2022-02-07] MEDS: Ondansetron 4 MG/2 ML Vial IV (16:08)
[2022-02-07 17:46] LABS: AST(SGOT) 30 U/L (15-37); Alanine Aminotransfer ALT/SGPT 19 U/L (13-56); Albumin, Serum 3.5 g/dL (3.2-5.0); Alkaline Phosphatase 68 U/L (45-117); Bilirubin, Direct 0.11 mg/dL (0.00-0.30); Globulin 3.5 g/dL (2.2-4.2); Lipase 17 U/L (73-393)
[2022-02-07 18:10] VITALS: PULSE 88; RESP 18; O2SAT 99
== END 2022-02-07 18:11 | disposition home or self-care (01) ==
PROVIDERS: Emergency Provider Emergency Medicine; PCP Internal Medicine; Visit Provider Emergency Medicine
DX: R11.2 Nausea with vomiting, unspecified (principal); I25.10 Atherosclerotic heart disease of native coronary artery without angina pectoris; G47.33 Obstructive sleep apnea (adult) (pediatric); Z86.718 Personal history of other venous thrombosis and embolism; Z86.711 Personal history of pulmonary embolism
CPT/HCPCS: 71045; 80048; 80076; 83690; 84484; 85025; 93005; 96374; 99284; J7030; A4216; J2405

== ENCOUNTER → 2022-02-21 | Outpatient (CLI) | payer MEDICARE, OTHER, SELFPAY ==
--- NOTE | 2022-02-21 13:05 | RAD_ITS ---
EXAM: XR CERVICAL SPINE, 6 OR MORE VIEWS CLINICAL INDICATION: Hx old C1 Fx; Hx Chiari I malformation surgery TECHNIQUE: Frontal, lateral, oblique and flexion/extension views of the cervical spine. This report was created using [employer] report [employer] technology. COMPARISON: Mar 16 2021 10:16am FINDINGS: VERTEBRAE: Neutral imaging demonstrates a grade 1 anterolisthesis of C2 on C3 measuring 2.9 mm. There is no movement on the flexion or extension views. Stable anterior fusion plate in place. Preserved vertebral body height. No acute fracture. No spondylolisthesis. Preservation of the normal cervical lordosis. No significant facet arthropathy. DISC SPACES: Oblique images demonstrate neural foraminal stenosis. SOFT TISSUES: Unremarkable. No prevertebral soft tissue widening. LUNG APICES: Clear. RAD/Cerv Spine Obl/Flex/Ext Comp IMPRESSION: 1. Neutral imaging demonstrates a grade 1 anterolisthesis of C2 on C3 measuring 2.9 mm. There is no movement on the flexion or extension views. 2. Oblique images demonstrate neural foraminal stenosis. Electronically Signed: Trent Arias MD at 17:19 EDT ,
== END | disposition home or self-care (01) ==
LOC: MTRAD 13:02
PROVIDERS: PCP Internal Medicine; Referring Provider Psychiatry & Neurology Neurology; Visit Provider Psychiatry & Neurology Neurology
DX: S12.000A Unspecified displaced fracture of first cervical vertebra, initial encounter for closed fracture (principal)
CPT/HCPCS: 72052

== ENCOUNTER → 2022-04-08 | Outpatient (CLI) | payer MEDICARE, OTHER, SELFPAY ==
[2022-04-08 12:40] LABS: ALB/GLOB Ratio 0.9 RATIO (0.9-2.4); AST(SGOT) 18 U/L (15-37); Alanine Aminotransfer ALT/SGPT 15 U/L (13-56); Albumin, Serum 2.9 g/dL (3.2-5.0); Alkaline Phosphatase 73 U/L (45-117); Anion Gap 5 (5-15); BUN 6 mg/dL (7-18); BUN/Creat Ratio 8.4 RATIO (10-20); Calcium,Total 8.5 mg/dL (8.5-10.1); Chloride 103 mmol/L (98-107); Creatinine, Serum 0.72 mg/dL (0.55-1.02); EST Glomerular Filtration Rate 84 mL/min (>60); Est Glom Filt Rate - Afr Amer 101 mL/min (>60); Globulin 3.3 g/dL (2.2-4.2); Glucose 201 mg/dL (74-106); Potassium 3.5 mmol/L (3.5-5.1); Protein, Total 6.2 g/dL (6.4-8.2); Sodium Level 139 mmol/L (136-145)
[2022-04-08 12:46] LABS: Absolute Lymphocyte Count 1.76 X10^3/uL (0.83-4.51); Absolute Neutrophil Count 2.1 X10^3/uL (2.0-7.7); Basophil# 0.04 X10^3/uL; Basophil% 0.9 % (0-1); Eosinophil# 0.16 X10^3/uL; Eosinophils% 3.7 % (0-5); Hematocrit 40.9 % (37-47); Hemoglobin 13.3 g/dL (12.0-15.0); Lymphocyte # 1.76 X10^3/ul (0.83-4.51); Lymphocyte % 41.2 % (19-41); Mean Corp Hgb Conc 32.5 g/dL (32-36); Mean Corpuscular Hgb 32.7 pg (27.0-32.0); Mean Corpuscular Volume 100.5 fL (81-99); Mean Platelet Vol. 10.8 fl (6.2-12.0); Monocyte# 0.25 X10^3/uL; Monocyte% 5.9 % (0-10); NRBC Flagged by Analyzer 0 % (0-5); Neutrophil # 2.05 X10^3/uL (2.7-7.7); Neutrophil % 48.1 % (47-70); Platelet Count 243 K/mm3 (150-450); RBC Distribution Width CV 14.2 % (11.6-14.6); RBC Distribution Width SD 52.1 fl (35.1-43.9); Red Blood Count 4.07 M/mm3 (4.2-5.4); White Blood Count 4.3 K/mm3 (4.4-11.0)
== END | disposition home or self-care (01) ==
LOC: MTLAB 10:22
PROVIDERS: PCP Internal Medicine; Referring Provider Internal Medicine Rheumatology; Visit Provider Internal Medicine Rheumatology
DX: M06.4 Inflammatory polyarthropathy (principal); I42.9 Cardiomyopathy, unspecified; E11.9 Type 2 diabetes mellitus without complications; M79.7 Fibromyalgia; M65.352 Trigger finger, left little finger; M16.0 Bilateral primary osteoarthritis of hip; M19.041 Primary osteoarthritis, right hand; I10 Essential (primary) hypertension; K21.9 Gastro-esophageal reflux disease without esophagitis; Z79.899 Other long term (current) drug therapy
CPT/HCPCS: 36415; 80053; 85025

== ENCOUNTER 2022-04-25 09:07 | Emergency (ER) | payer MEDICARE, OTHER, SELFPAY ==
[2022-04-25 09:08] VITALS: BP 122/106; PULSE 100; RESP 16; TEMP 35.7; O2SAT 100; BMI 21.1
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
[2022-04-25 09:36] VITALS: TEMP 36.8
[2022-04-25 10:07] LABS: Absolute Lymphocyte Count 1.27 X10^3/uL (0.83-4.51); Absolute Neutrophil Count 3.1 X10^3/uL (2.0-7.7); Basophil# 0.04 X10^3/uL; Basophil% 0.8 % (0-1); Eosinophil# 0.14 X10^3/uL; Eosinophils% 2.9 % (0-5); Hematocrit 40.2 % (37-47); Hemoglobin 13.7 g/dL (12.0-15.0); Lymphocyte # 1.27 X10^3/ul (0.83-4.51); Mean Corp Hgb Conc 34.1 g/dL (32-36); Mean Corpuscular Hgb 32.5 pg (27.0-32.0); Mean Corpuscular Volume 95.5 fL (81-99); Mean Platelet Vol. 9.9 fl (6.2-12.0); Monocyte# 0.31 X10^3/uL; Monocyte% 6.3 % (0-10); NRBC Flagged by Analyzer 0 % (0-5); Neutrophil # 3.12 X10^3/uL (2.7-7.7); Neutrophil % 63.8 % (47-70); Platelet Count 347 K/mm3 (150-450); RBC Distribution Width CV 14.8 % (11.6-14.6); RBC Distribution Width SD 51.7 fl (35.1-43.9); Red Blood Count 4.21 M/mm3 (4.2-5.4); White Blood Count 4.9 K/mm3 (4.4-11.0)
[2022-04-25] MEDS: Ondansetron 4 MG/2 ML Vial IV (10:17)
[2022-04-25] MEDS: Ketorolac 15 MG/ML Vial IV (10:17)
[2022-04-25] MEDS: 0.9% Normal Saline 1,000 ML 150 ML IV (10:17)
[2022-04-25 10:18] LABS: Bacteria 0 SEEN /hpf (None Seen); Mucous, Urine 0 SEEN /hpf (<or=2+); Red Blood Cells-Urine 0 SEEN /hpf (0-5)
[2022-04-25 10:19] VITALS: BP 118/82; PULSE 78; RESP 14; O2SAT 97
[2022-04-25 10:20] LABS: Color, Urine Yellow (Yellow); Glucose, Dipstick Normal (Normal); Ketone-Dipstick Negative (Negative); Leukocyte Esterase-Dipstick 25 /ul (Negative); Nitrite-Dipstick Negative (Negative); Occult Blood-Urine Negative /ul (Negative); Protein-Dipstick Negative (Negative); Urine Bilirubin Dipstick Negative (Negative); Urine Clarity Clear (Clear); Urine Urobilinogen Normal (Normal)
[2022-04-25 10:27] LABS: Squamous Epithelial Cells - UA 0-5 SEEN /hpf (5-10); White Blood Cells 0-5 SEEN /hpf (0-5)
[2022-04-25 11:08] LABS: AST(SGOT) 16 U/L (15-37); Alanine Aminotransfer ALT/SGPT 16 U/L (13-56); Albumin, Serum 2.9 g/dL (3.2-5.0); Alkaline Phosphatase 77 U/L (45-117); Anion Gap 7 (5-15); BUN 6 mg/dL (7-18); BUN/Creat Ratio 10.6 RATIO (10-20); Bilirubin, Direct 0.13 mg/dL (0.00-0.30); Chloride 103 mmol/L (98-107); Creatinine, Serum 0.57 mg/dL (0.55-1.02); EST Glomerular Filtration Rate 109 mL/min (>60); Est Glom Filt Rate - Afr Amer 132 mL/min (>60); Estimated Creatinine Clearance 40.04 ml/min; Globulin 3.2 g/dL (2.2-4.2); Glucose 119 mg/dL (74-106); Lipase 39 U/L (73-393); Potassium 3.2 mmol/L (3.5-5.1); Protein, Total 6.1 g/dL (6.4-8.2); Sodium Level 142 mmol/L (136-145)
[2022-04-25 11:17] VITALS: BP 118/87; PULSE 71; RESP 15; O2SAT 96
[2022-04-25 11:45] VITALS: PULSE 70; RESP 16; O2SAT 96
== END 2022-04-25 11:59 | disposition home or self-care (01) ==
PROVIDERS: Emergency Provider Emergency Medicine; PCP Internal Medicine; Visit Provider Emergency Medicine
DX: K44.9 Diaphragmatic hernia without obstruction or gangrene (principal); E11.9 Type 2 diabetes mellitus without complications; R53.1 Weakness; I10 Essential (primary) hypertension; R11.10 Vomiting, unspecified; I25.10 Atherosclerotic heart disease of native coronary artery without angina pectoris; E78.5 Hyperlipidemia, unspecified; M19.90 Unspecified osteoarthritis, unspecified site; F32.A Depression, unspecified; F41.9 Anxiety disorder, unspecified; Z79.84 Long term (current) use of oral hypoglycemic drugs; Z79.899 Other long term (current) drug therapy
CPT/HCPCS: 80048; 80076; 81001; 83690; 85025; 87428; 96361; 96374; 96375; 99283; J7030; A4216; J2405

== ENCOUNTER → 2022-05-11 | Outpatient (CLI) | payer MEDICARE, OTHER, SELFPAY ==
--- NOTE | 2022-05-11 11:12 | BI_ITS ---
MAMMOGRAPHY - BILATERAL SCREENING REASON FOR EXAM: Female, 76 years old. Routine annual screening examination. PERTINENT HISTORY: Mother with breast cancer. TECHNIQUE: Digital bilateral breast nicolette (3D mammographic acquisition) in the CC and MLO projections. 2-D mediolateral oblique (MLO) and craniocaudad (CC) views of both breasts were obtained. CAD: Full Field Digital Mammography with Computer Added Detection was performed. COMPARISON: Comparison is made with prior study dated 12/31/2020 and 10/18/2017. FINDINGS: Breast Composition: There are scattered areas of fibroglandular density. There are no dominant masses or suspicious calcifications. No other significant abnormalities are identified. There has been no significant change since the prior study. BI/SCRN MAMM (CAD)W/NICOLETTE BILAT IMPRESSION: Stable bilateral screening mammogram. Yearly follow-up mammogram recommended. (A) ASSESSMENT CATEGORY: BIRADS Category 1: Negative. A letter regarding these results will be sent to the patient by the facility within 30 days. Approximately 10% of breast cancers are not detected by mammography. A normal mammogram should not delay biopsy of a clinically suspicious abnormality. [id number] Electronically Signed: Florian Valenzuela MD at 12:37 EDT ,
== END | disposition home or self-care (01) ==
LOC: OPBI 11:11
PROVIDERS: PCP Internal Medicine; Visit Provider Internal Medicine
DX: Z12.31 Encounter for screening mammogram for malignant neoplasm of breast (principal)
CPT/HCPCS: 77063; 77067

== ENCOUNTER → 2022-05-31 | Outpatient (CLI) | payer MEDICARE, OTHER, SELFPAY ==
--- NOTE | 2022-05-31 09:28 | CDU_ITS ---
Reason For Study: left carotid bruit Rt. Velocities/BP Lt. Velocities/BP Prox CCA 62.6/15.4 cm/sec. Prox CCA 54.1/10.7 cm/sec. Mid CCA 47.5/8.8 cm/sec. Mid CCA 53.2/13.5 cm/sec. Dist CCA 47.5/10.7 cm/sec. Dist CCA 52.2/12.6 cm/sec. Prox ICA 39.0/11.6 cm/sec. Prox ICA 51.3/14.5 cm/sec. Mid ICA 33.3/12.6 cm/sec. Mid ICA 49.4/15.4 cm/sec. Dist ICA 51.5/17.5 cm/sec. Dist ICA 61.7/20.1 cm/sec. Rt. ICA/CCA = 1.1. Lt. ICA/CCA = 1.2. Prox ECA 56.0/8.8 cm/sec. Prox ECA 48.5/9.7 cm/sec. Rt. Vert. 40.0/12.6 cm/sec. Lt. Vert. 40.8/10.7 cm/sec. Right Extracranial There is intimal thickening but no significant atherosclerotic plaque noted in the right common carotid artery. There is intimal thickening but no significant atherosclerotic plaque noted in the right internal carotid artery. There is heterogeneous, smooth atherosclerotic plaque noted in the right external carotid artery. Antegrade flow is noted in the right vertebral artery. Left Extracranial There is intimal thickening but no significant atherosclerotic plaque noted in the left common carotid artery. There is heterogeneous, irregular atherosclerotic plaque noted in the left internal carotid artery. There is intimal thickening but no significant atherosclerotic plaque noted in the left external carotid artery. Antegrade flow is noted in the left vertebral artery. Procedure Carotid Duplex [id number]. This is a Carotid Duplex examination using B-mode, color flow and specral Doppler. The exam was diagnostic. Exam performed in department. VL/Carotid Duplex Ultrasound Interpretation Summary Intimal thickening at the proximal right internal carotid artery with less than 50% stenosis Less than 50% stenosis right external carotid artery Minimal smooth plaque at the proximal left internal carotid artery with less th an 50% stenosis Less than 50% stenosis left external carotid artery Patent and antegrade vertebral arteries bilaterally Ordering Physician: Galo Buckley Performed By: Jordan Galvez RVT
== END | disposition home or self-care (01) ==
LOC: CVS 09:28
PROVIDERS: PCP Internal Medicine; Referring Provider Psychiatry & Neurology Neurology; Visit Provider Psychiatry & Neurology Neurology
DX: R09.89 Other specified symptoms and signs involving the circulatory and respiratory systems (principal)
CPT/HCPCS: 93880

== ENCOUNTER → 2022-06-07 | Outpatient (CLI) | payer MEDICARE, OTHER, SELFPAY ==
[2022-06-07 15:10] LABS: Absolute Neutrophil Count 3.9 X10^3/uL (2.0-7.7); Basophil# 0.04 X10^3/uL; Basophil% 0.6 % (0-1); Eosinophil# 0.13 X10^3/uL; Hematocrit 37.2 % (37-47); Hemoglobin 12.4 g/dL (12.0-15.0); Lymphocyte % 27.9 % (19-41); Mean Corp Hgb Conc 33.3 g/dL (32-36); Mean Corpuscular Hgb 33.7 pg (27.0-32.0); Mean Corpuscular Volume 101.1 fL (81-99); Mean Platelet Vol. 10.6 fl (6.2-12.0); Monocyte# 0.55 X10^3/uL; Monocyte% 8.5 % (0-10); NRBC Flagged by Analyzer 0 % (0-5); Neutrophil # 3.93 X10^3/uL (2.7-7.7); Neutrophil % 60.8 % (47-70); Platelet Count 272 K/mm3 (150-450); RBC Distribution Width CV 14.6 % (11.6-14.6); RBC Distribution Width SD 54.5 fl (35.1-43.9); Red Blood Count 3.68 M/mm3 (4.2-5.4); White Blood Count 6.5 K/mm3 (4.4-11.0)
[2022-06-07 15:49] LABS: AST(SGOT) 24 U/L (15-37); Alanine Aminotransfer ALT/SGPT 25 U/L (13-56); Albumin, Serum 3.6 g/dL (3.2-5.0); Alkaline Phosphatase 74 U/L (45-117); Anion Gap 8 (5-15); BUN 7 mg/dL (7-18); BUN/Creat Ratio 10.4 RATIO (10-20); Calcium,Total 8.5 mg/dL (8.5-10.1); Chloride 102 mmol/L (98-107); Creatinine, Serum 0.67 mg/dL (0.55-1.02); EST Glomerular Filtration Rate 90 mL/min (>60); Est Glom Filt Rate - Afr Amer 109 mL/min (>60); Globulin 3.6 g/dL (2.2-4.2); Glucose 66 mg/dL (74-106); Potassium 3.1 mmol/L (3.5-5.1); Protein, Total 7.2 g/dL (6.4-8.2); Sodium Level 141 mmol/L (136-145)
== END | disposition home or self-care (01) ==
LOC: MTLAB 11:14
PROVIDERS: PCP Internal Medicine; Referring Provider Internal Medicine Rheumatology; Visit Provider Internal Medicine Rheumatology
DX: M06.4 Inflammatory polyarthropathy (principal); I42.9 Cardiomyopathy, unspecified; M79.7 Fibromyalgia; M65.352 Trigger finger, left little finger; M16.0 Bilateral primary osteoarthritis of hip; M19.041 Primary osteoarthritis, right hand; M21.40 Flat foot [pes planus] (acquired), unspecified foot; I10 Essential (primary) hypertension; G25.81 Restless legs syndrome; K21.9 Gastro-esophageal reflux disease without esophagitis; Z79.899 Other long term (current) drug therapy; Z85.43 Personal history of malignant neoplasm of ovary
CPT/HCPCS: 36415; 80053; 85025

== ENCOUNTER → 2022-06-22 | Outpatient (CLI) | payer MEDICARE, OTHER, SELFPAY ==
[2022-06-22 15:22] LABS: Potassium 3.1 mmol/L (3.5-5.1)
[2022-06-22 15:41] LABS: Hemoglobin A1c 5.6 % (3.8-5.6)
== END | disposition home or self-care (01) ==
PROVIDERS: PCP Internal Medicine; Referring Provider Orthopaedic Surgery; Visit Provider Orthopaedic Surgery
DX: E11.9 Type 2 diabetes mellitus without complications (principal); R11.0 Nausea
CPT/HCPCS: 36415; 83036; 84132

== ENCOUNTER → 2022-07-26 | Outpatient (CLI) | payer MEDICARE, OTHER, SELFPAY ==
[2022-07-26 15:33] LABS: Absolute Neutrophil Count 6.4 X10^3/uL (2.0-7.7); Basophil# 0.06 X10^3/uL; Basophil% 0.8 % (0-1); Eosinophil# 0.07 X10^3/uL; Eosinophils% 0.9 % (0-5); Hematocrit 38.7 % (37-47); Hemoglobin 12.9 g/dL (12.0-15.0); Mean Corp Hgb Conc 33.3 g/dL (32-36); Mean Corpuscular Hgb 33.6 pg (27.0-32.0); Mean Corpuscular Volume 100.8 fL (81-99); Mean Platelet Vol. 10.3 fl (6.2-12.0); Monocyte% 2.6 % (0-10); NRBC Flagged by Analyzer 0 % (0-5); Neutrophil # 6.37 X10^3/uL (2.7-7.7); Neutrophil % 81.3 % (47-70); Platelet Count 349 K/mm3 (150-450); RBC Distribution Width CV 14.2 % (11.6-14.6); RBC Distribution Width SD 51.4 fl (35.1-43.9); Red Blood Count 3.84 M/mm3 (4.2-5.4); White Blood Count 7.8 K/mm3 (4.4-11.0)
[2022-07-26 15:49] LABS: ALB/GLOB Ratio 1.1 RATIO (0.9-2.4); AST(SGOT) 16 U/L (15-37); Alanine Aminotransfer ALT/SGPT 19 U/L (13-56); Albumin, Serum 3.6 g/dL (3.2-5.0); Alkaline Phosphatase 63 U/L (45-117); Anion Gap 8 (5-15); BUN 10 mg/dL (7-18); BUN/Creat Ratio 14.9 RATIO (10-20); Calcium,Total 8.8 mg/dL (8.5-10.1); Chloride 101 mmol/L (98-107); Creatinine, Serum 0.67 mg/dL (0.55-1.02); EST Glomerular Filtration Rate 90 mL/min (>60); Est Glom Filt Rate - Afr Amer 109 mL/min (>60); Globulin 3.4 g/dL (2.2-4.2); Glucose 104 mg/dL (74-106); Potassium 3.3 mmol/L (3.5-5.1); Sodium Level 139 mmol/L (136-145)
== END | disposition home or self-care (01) ==
LOC: MTLAB 12:34
PROVIDERS: PCP Internal Medicine; Referring Provider Internal Medicine Rheumatology; Visit Provider Internal Medicine Rheumatology
DX: M06.4 Inflammatory polyarthropathy (principal); I42.9 Cardiomyopathy, unspecified; E11.9 Type 2 diabetes mellitus without complications; Z79.899 Other long term (current) drug therapy; M79.7 Fibromyalgia; M65.352 Trigger finger, left little finger; M16.0 Bilateral primary osteoarthritis of hip; M19.041 Primary osteoarthritis, right hand; M21.40 Flat foot [pes planus] (acquired), unspecified foot; F32.9 Major depressive disorder, single episode, unspecified; F41.9 Anxiety disorder, unspecified; I10 Essential (primary) hypertension; Z85.43 Personal history of malignant neoplasm of ovary; G25.81 Restless legs syndrome; H93.13 Tinnitus, bilateral; K21.9 Gastro-esophageal reflux disease without esophagitis
CPT/HCPCS: 36415; 80053; 85025

== ENCOUNTER 2022-10-04 08:27 | Outpatient (RCR) | payer MEDICARE, OTHER, SELFPAY ==
[2022-10-04 08:56] VITALS: BP 108/77; PULSE 119; RESP 16; TEMP 36.2; BMI 19.5
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
== END 2022-10-04 23:59 | disposition home or self-care (01) ==
LOC: WC 08:27
PROVIDERS: PCP Internal Medicine; Visit Provider Surgery
DX: L89.153 Pressure ulcer of sacral region, stage 3 (principal); E11.622 Type 2 diabetes mellitus with other skin ulcer; Q07.00 Arnold-Chiari syndrome without spina bifida or hydrocephalus; M06.9 Rheumatoid arthritis, unspecified; Z86.718 Personal history of other venous thrombosis and embolism; Z86.711 Personal history of pulmonary embolism; K21.9 Gastro-esophageal reflux disease without esophagitis; I25.10 Atherosclerotic heart disease of native coronary artery without angina pectoris; M79.7 Fibromyalgia; I10 Essential (primary) hypertension; E78.5 Hyperlipidemia, unspecified; G47.33 Obstructive sleep apnea (adult) (pediatric)
CPT/HCPCS: 11042; 99213; G0463

== ENCOUNTER → 2022-10-25 | Outpatient (CLI) | payer MEDICARE, OTHER, SELFPAY ==
[2022-10-25 15:10] LABS: Absolute Lymphocyte Count 1.65 X10^3/uL (0.83-4.51); Absolute Neutrophil Count 4.8 X10^3/uL (2.0-7.7); Basophil# 0.05 X10^3/uL; Basophil% 0.7 % (0-1); Eosinophil# 0.09 X10^3/uL; Eosinophils% 1.3 % (0-5); Hematocrit 36.6 % (37-47); Hemoglobin 11.5 g/dL (12.0-15.0); Lymphocyte # 1.65 X10^3/ul (0.83-4.51); Lymphocyte % 23.8 % (19-41); Mean Corp Hgb Conc 31.4 g/dL (32-36); Mean Corpuscular Hgb 31.9 pg (27.0-32.0); Mean Corpuscular Volume 101.7 fL (81-99); Mean Platelet Vol. 10.2 fl (6.2-12.0); Monocyte# 0.39 X10^3/uL; Monocyte% 5.6 % (0-10); NRBC Flagged by Analyzer 0 % (0-5); Neutrophil # 4.75 X10^3/uL (2.7-7.7); Neutrophil % 68.5 % (47-70); Platelet Count 279 K/mm3 (150-450); RBC Distribution Width CV 14.3 % (11.6-14.6); RBC Distribution Width SD 52.1 fl (35.1-43.9); White Blood Count 6.9 K/mm3 (4.4-11.0)
[2022-10-25 15:28] LABS: AST(SGOT) 19 U/L (15-37); Alanine Aminotransfer ALT/SGPT 15 U/L (13-56); Albumin, Serum 3.4 g/dL (3.2-5.0); Alkaline Phosphatase 64 U/L (45-117); Anion Gap 8 (5-15); BUN 8 mg/dL (7-18); BUN/Creat Ratio 11.7 RATIO (10-20); Calcium,Total 8.8 mg/dL (8.5-10.1); Chloride 101 mmol/L (98-107); Creatinine, Serum 0.68 mg/dL (0.55-1.02); EST Glomerular Filtration Rate 88 mL/min (>60); Est Glom Filt Rate - Afr Amer 106 mL/min (>60); Globulin 3.5 g/dL (2.2-4.2); Glucose 81 mg/dL (74-106); Potassium 3.5 mmol/L (3.5-5.1); Protein, Total 6.9 g/dL (6.4-8.2); Sodium Level 138 mmol/L (136-145)
== END | disposition home or self-care (01) ==
LOC: MTLAB 13:27
PROVIDERS: PCP Internal Medicine; Referring Provider Internal Medicine Rheumatology; Visit Provider Internal Medicine Rheumatology
DX: M06.4 Inflammatory polyarthropathy (principal); I42.9 Cardiomyopathy, unspecified; E11.9 Type 2 diabetes mellitus without complications; M79.7 Fibromyalgia; M65.352 Trigger finger, left little finger; M16.0 Bilateral primary osteoarthritis of hip; M19.041 Primary osteoarthritis, right hand; M21.40 Flat foot [pes planus] (acquired), unspecified foot; F41.9 Anxiety disorder, unspecified; I10 Essential (primary) hypertension; G25.81 Restless legs syndrome; H93.13 Tinnitus, bilateral; K21.9 Gastro-esophageal reflux disease without esophagitis; Z79.899 Other long term (current) drug therapy
CPT/HCPCS: 36415; 80053; 85025

== ENCOUNTER 2022-11-01 09:00 | Outpatient (RCR) | payer MEDICARE, OTHER, SELFPAY ==
[2022-10-05 00:51] VITALS: BP 108/77; PULSE 119; RESP 16; TEMP 36.2; BMI 19.5
[2022-10-11 08:54] VITALS: BP 126/52; PULSE 89; TEMP 36.2; BMI 19.5
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
[2022-10-18 08:40] VITALS: BP 130/75; PULSE 79; RESP 20; TEMP 36.3; BMI 19.5
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
[2022-11-01 08:48] VITALS: RESP 18; TEMP 36.3; BMI 19.5
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
== END 2022-11-01 10:53 | disposition home or self-care (01) ==
LOC: WC 09:00
PROVIDERS: PCP Internal Medicine; Visit Provider Surgery
DX: L89.153 Pressure ulcer of sacral region, stage 3 (principal); Q07.00 Arnold-Chiari syndrome without spina bifida or hydrocephalus; M06.9 Rheumatoid arthritis, unspecified; E11.42 Type 2 diabetes mellitus with diabetic polyneuropathy; I25.10 Atherosclerotic heart disease of native coronary artery without angina pectoris; E78.5 Hyperlipidemia, unspecified; M79.7 Fibromyalgia; K21.9 Gastro-esophageal reflux disease without esophagitis; G47.33 Obstructive sleep apnea (adult) (pediatric); I10 Essential (primary) hypertension; R09.89 Other specified symptoms and signs involving the circulatory and respiratory systems; Z79.84 Long term (current) use of oral hypoglycemic drugs; Z79.899 Other long term (current) drug therapy
CPT/HCPCS: 11042; 99213; G0463

== ENCOUNTER 2022-11-02 17:08 | Emergency (ER) | payer MEDICARE, OTHER, SELFPAY ==
[2022-11-02 17:09] VITALS: BP 142/82; PULSE 87; RESP 14; TEMP 37.3; O2SAT 98
--- NOTE | 2022-11-02 18:20 | EKG12_ITS ---
Test Reason : CP Blood Pressure : / mmHG Vent. Rate : 087 BPM Atrial Rate : 087 BPM P-R Int : 182 ms QRS Dur : 072 ms QT Int : 372 ms P-R-T Axes : 035 -03 065 degrees QTc Int : 447 ms Normal sinus rhythm Low voltage QRS Inferior infarct , age undetermined Cannot rule out Anteroseptal infarct , age undetermined Abnormal ECG Confirmed by YADIRA ARAGON, MICAELA ([id number]), slot editor MILVIA MCLEAN ([id number]) on 11/07/2022 9:53:28 AM Referred By: Confirmed By:LISA MAY MD
[2022-11-02 18:29] LABS: Absolute Lymphocyte Count 1.02 X10^3/uL (0.83-4.51); Absolute Neutrophil Count 5.4 X10^3/uL (2.0-7.7); Basophil# 0.04 X10^3/uL; Basophil% 0.6 % (0-1); Eosinophil# 0.09 X10^3/uL; Eosinophils% 1.3 % (0-5); Hematocrit 34.4 % (37-47); Lymphocyte # 1.02 X10^3/ul (0.83-4.51); Lymphocyte % 14.6 % (19-41); Mean Corpuscular Hgb 31.8 pg (27.0-32.0); Mean Corpuscular Volume 99.4 fL (81-99); Mean Platelet Vol. 10.1 fl (6.2-12.0); Monocyte% 5.7 % (0-10); NRBC Flagged by Analyzer 0 % (0-5); Neutrophil # 5.44 X10^3/uL (2.7-7.7); Neutrophil % 77.5 % (47-70); Platelet Count 319 K/mm3 (150-450); RBC Distribution Width CV 14.1 % (11.6-14.6); RBC Distribution Width SD 50.6 fl (35.1-43.9); Red Blood Count 3.46 M/mm3 (4.2-5.4)
[2022-11-02 18:47] LABS: Anion Gap 6 (5-15); BUN 8 mg/dL (7-18); BUN/Creat Ratio 15.8 RATIO (10-20); Calcium,Total 8.5 mg/dL (8.5-10.1); Chloride 97 mmol/L (98-107); Creatinine, Serum 0.51 mg/dL (0.55-1.02); EST Glomerular Filtration Rate 124 mL/min (>60); Est Glom Filt Rate - Afr Amer 151 mL/min (>60); Glucose 117 mg/dL (74-106); Potassium 3.8 mmol/L (3.5-5.1); Sodium Level 136 mmol/L (136-145); Troponin-I HS 7 pg/mL (3.0-54.0)
--- NOTE | 2022-11-02 18:50 | RAD_ITS ---
STUDY: XR Ribs Unilateral W/ PA Chest Min 3 Views 11/02/2022 7:01 PM REASON FOR EXAM: Female, 77 years old. CHEST PAIN pain COMPARISON: 6.6.22 TECHNIQUE: XR Ribs Unilateral W/ PA Chest Min 3 Views FINDINGS: There is no demonstrated pleural abnormality. Cervical spine fusion hardware noted. Normal heart size. Normal mediastinum. Normal karthik. Prominent appearing increased interstitial lung markings. Normal visualized pulmonary arteries. There is atherosclerotic calcification of the aortic arch with tortuosity. There are diffuse degenerative changes of the visualized thoracic spine. There is degenerative osteoarthritis of the bilateral shoulders. There is no demonstrated abnormality of the visualized soft tissue structures of the upper abdomen. RAD/Ribs Uni Min 3V w/PA Chest IMPRESSION: There are no acute findings. Electronically Signed: Trent Arias MD at 19:21 EST ,
--- NOTE | 2022-11-02 18:55 | CT_ITS ---
EXAM: CT SPINE - CERVICAL WITHOUT IV REASON FOR EXAM: Female, 77 years old. NECK PAIN Pain HISTORY: NECK PAIN Pain Individualized dose optimization techniques were used for this CT. TECHNIQUE: Multiplanar images were obtained of the cervical spine. IV contrast was not utilized. COMPARISON: 02.27.21. FINDINGS: The vertebral bodies do maintain their height. There is a congenital incomplete fusion of the posterior ring of C1. There is a non union old fracture of the anterior ring of C1. The odontoid process is intact. There is grade 1 anterolisthesis of C2 on C3. This has increased slightly and now measures 3.5mm. No pre-vertebral soft tissue swelling is seen. The intravertebral disc height is lost. There are scattered lymph nodes in the neck. There are degenerative changes of the osseous structures. There is bilateral facet arthropathy. There are scattered levels of foraminal stenosis. There are vascular calcifications. Post surgical changes with anterior fusion plate at C3 to C6. Posterior to C6 there is a calcification in the spinal canal causing spinal stenosis. This is stable. CT/Spine Cervical without Contras IMPRESSION: Degenerative changes of the cervical spine. There is grade 1 anterolisthesis of C2 on C3. This has increased slightly and now measures 3.5mm. Electronically Signed: Trent Arias MD at 19:26 EST ,
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
[2022-11-02 20:41] VITALS: BP 146/74; PULSE 86; RESP 18; O2SAT 97
== END 2022-11-02 20:45 | disposition home or self-care (01) ==
PROVIDERS: Emergency Provider Emergency Medicine; PCP Internal Medicine; Visit Provider Emergency Medicine
DX: M54.2 Cervicalgia (principal); R07.89 Other chest pain; M47.812 Spondylosis without myelopathy or radiculopathy, cervical region; I25.10 Atherosclerotic heart disease of native coronary artery without angina pectoris; G47.33 Obstructive sleep apnea (adult) (pediatric); Z86.718 Personal history of other venous thrombosis and embolism
CPT/HCPCS: 71101; 72125; 80048; 84484; 85025; 93005; 99284; A4216

== ENCOUNTER → 2022-12-16 | Outpatient (CLI) | payer MEDICARE, OTHER, SELFPAY ==
--- NOTE | 2022-12-16 10:46 | RAD_ITS ---
STUDY: X-RAY - CERVICAL SPINE REASON FOR EXAM: Female, 77 years old. Neck pain, history of previous surgery TECHNIQUE: 7 view(s) of the cervical spine were obtained. COMPARISON: None FINDINGS: There is been previous anterior cervical fusion between C3 and C6. Hardware is intact and free of complication, there has been interbody fusion between C3 and C6. Normal anterior atlantoaxial articulation. Normal odontoid process. There is a stable grade 1 anterolisthesis of C2 on C3 again measuring approximately 2.9 mm without instability on the flexion or extension views. There is straightening of the normal cervical lordosis. There is diffuse demineralization of the cervical spine. There is multi-level degenerative disc disease with multilevel disc space narrowing. There is multi-level osseous foraminal stenosis. The soft tissue structures are unremarkable. RAD/Cerv Spine Obl/Flex/Ext Comp IMPRESSION: Stable grade 1 anterolisthesis of C2 on C3 without instability Stable age consistent degenerative and postsurgical changes, no acute traumatic abnormalities. Surgical hardware from C3 to C7 intact and free of complication Electronically Signed: Eddie Bettencourt MD at 11:56 EDT ,
== END | disposition home or self-care (01) ==
LOC: MTRAD 10:46
PROVIDERS: PCP Internal Medicine; Referring Provider Psychiatry & Neurology Neurology; Visit Provider Psychiatry & Neurology Neurology
DX: M54.2 Cervicalgia (principal); S12.000A Unspecified displaced fracture of first cervical vertebra, initial encounter for closed fracture; S13.100A Subluxation of unspecified cervical vertebrae, initial encounter
CPT/HCPCS: 72052

== ENCOUNTER 2023-01-23 14:18 | Inpatient (IN) | payer MEDICARE, OTHER, SELFPAY ==
[2023-01-23 14:19] VITALS: BP 121/71; PULSE 80; RESP 18; TEMP 36.4; O2SAT 96; BMI 20.8
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
[2023-01-23] MEDS: Ondansetron 4 MG/2 ML Vial IV ×2 (15:20→19:06)
[2023-01-23] MEDS: 0.9% Normal Saline 1,000 ML 1000 ML IV (15:20)
[2023-01-23 15:25] LABS: Absolute Lymphocyte Count 1.23 X10^3/uL (0.83-4.51); Absolute Neutrophil Count 11.6 X10^3/uL (2.0-7.7); Basophil# 0.03 X10^3/uL; Basophil% 0.2 % (0-1); Eosinophil# 0.04 X10^3/uL; Eosinophils% 0.3 % (0-5); Hematocrit 41.7 % (37-47); Hemoglobin 13.2 g/dL (12.0-15.0); Lymphocyte # 1.23 X10^3/ul (0.83-4.51); Lymphocyte % 8.9 % (19-41); Mean Corp Hgb Conc 31.7 g/dL (32-36); Mean Corpuscular Hgb 32.2 pg (27.0-32.0); Mean Corpuscular Volume 101.7 fL (81-99); Mean Platelet Vol. 10.1 fl (6.2-12.0); Monocyte# 0.92 X10^3/uL; Monocyte% 6.6 % (0-10); NRBC Flagged by Analyzer 0 % (0-5); Neutrophil # 11.59 X10^3/uL (2.7-7.7); Neutrophil % 83.5 % (47-70); Platelet Count 335 K/mm3 (150-450); RBC Distribution Width SD 52.7 fl (35.1-43.9); White Blood Count 13.9 K/mm3 (4.4-11.0)
[2023-01-23 15:37] LABS: ALB/GLOB Ratio 0.9 RATIO (0.9-2.4); AST(SGOT) 20 U/L (15-37); Alanine Aminotransfer ALT/SGPT 23 U/L (13-56); Albumin, Serum 3.6 g/dL (3.2-5.0); Alkaline Phosphatase 78 U/L (45-117); Anion Gap 8 (5-15); BUN 16 mg/dL (7-18); BUN/Creat Ratio 21.3 RATIO (10-20); Calcium,Total 8.8 mg/dL (8.5-10.1); Chloride 95 mmol/L (98-107); Creatinine, Serum 0.75 mg/dL (0.55-1.02); EST Glomerular Filtration Rate 79 mL/min (>60); Est Glom Filt Rate - Afr Amer 96 mL/min (>60); Estimated Creatinine Clearance 37.74 ml/min; Globulin 3.9 g/dL (2.2-4.2); Glucose 139 mg/dL (74-106); Potassium 3.3 mmol/L (3.5-5.1); Protein, Total 7.5 g/dL (6.4-8.2); Sodium Level 134 mmol/L (136-145)
[2023-01-23 15:52] LABS: Mucous, Urine 0 SEEN /hpf (<or=2+); Red Blood Cells-Urine 0 SEEN /hpf (0-5); Squamous Epithelial Cells - UA 0 SEEN /hpf (5-10)
[2023-01-23 16:11] LABS: Color, Urine Yellow (Yellow); Glucose, Dipstick Normal (Normal); Ketone-Dipstick 15 mg/dl (Negative); Leukocyte Esterase-Dipstick 100 /ul (Negative); Nitrite-Dipstick Positive (Negative); Occult Blood-Urine 10 /ul (Negative); Protein-Dipstick 30 mg/dl (Negative); Urine Bilirubin Dipstick Negative (Negative); Urine Clarity Sl. Cloudy (Clear); Urine Urobilinogen 1 mg/dl (Normal)
[2023-01-23 16:22] LABS: Bacteria 4+ /hpf (None Seen); White Blood Cells 0-5 SEEN /hpf (0-5)
--- NOTE | 2023-01-23 18:16 | US_ITS ---
INDICATION: UTI with systemic symptoms, r/o pyelonephritis EXAMINATION: Ultrasound US Kidney(s) complete (eg, kidneys and bladder) TECHNIQUE: Lambert scale and color doppler images were obtained of the kidneys. COMPARISON: None. FINDINGS: RIGHT KIDNEY: 10.5 x 5.4 x 4 cm. There is no hydronephrosis. No shadowing calculus, focal lesion or perinephric collection is demonstrated. LEFT KIDNEY: 10.7 x 5.5 x 5.4 cm. 2.3 x 2.2 x 2 cm cyst. There is no hydronephrosis. No shadowing calculus, focal lesion or perinephric collection is demonstrated. URINARY BLADDER: No acute abnormality. Both ureter jets visualized. US/Kidney and Bladder IMPRESSION: Negative renal ultrasound. If clinical suspicion for pyelonephritis remains, consider renal protocol CT of the abdomen. Electronically Signed: Corey Garcia MD at 19:38 EDT ,
[2023-01-23 18:26] VITALS: BP 134/76; PULSE 88; RESP 14; TEMP 36.5; O2SAT 100
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
[2023-01-23] MEDS: Ceftriaxone 1 GM/50 ML BAG IV (18:48)
[2023-01-23] MEDS: Morphine 4 MG/ML Syringe IV (19:05)
[2023-01-23 19:07] LABS: Magnesium 1.5 mg/dL (1.6-2.6)
[2023-01-23 19:44] VITALS: BMI 20.9
[2023-01-23 20:33] VITALS: BP 131/66; PULSE 73; RESP 16; TEMP 36.9; O2SAT 96
[2023-01-23] MEDS: MELATONIN 10 MG TABLET 5 MG PO (22:38)
[2023-01-23] MEDS: Gabapentin 800 MG Tablet PO (22:40)
[2023-01-23] MEDS: Baclofen 10 MG Tablet 5 MG PO (22:41)
[2023-01-23] MEDS: Magnesium Chloride 64 MG Delay Rel.Tablet 128 MG PO (22:49)
[2023-01-23] MEDS: MENTHOL 226.8 GM JAR 1 APPLIC TOPICAL (22:49)
[2023-01-23] MEDS: 0.9% Saline Lock 10 ML Syringe IV (22:50)
[2023-01-23 23:25] LABS: Bedside Glucose 108 mg/dL (74-106)
[2023-01-24] MEDS: Gabapentin 800 MG Tablet PO ×3 (05:53→21:07)
[2023-01-24] MEDS: Baclofen 10 MG Tablet 5 MG PO ×3 (05:54→21:07)
[2023-01-24 05:59] VITALS: BP 123/68; PULSE 64; RESP 16; TEMP 36.7; O2SAT 94
[2023-01-24 06:00] VITALS: BMI 21.4
[2023-01-24 06:45] LABS: Bedside Glucose 80 mg/dL (74-106)
--- NOTE | 2023-01-24 06:53 | PCM.PN.HOSP ---
Reason for Visit Reason for Visit: Nausea/vomiting/dysuria Subjective Subjective Mrs. Kang is a 77-year-old white female who presented to the emergency department [facility] on 01/23/2023 with nausea, vomiting, and dysuria. Her symptoms started the night prior to presentation. She indicates her urine also has a foul order and she believes she may have a UTI. She had subjective fever and sweats. Vital signs on presentation showed a temperature of 97.6, heart rate 80, respiratory rate of 18, blood pressure 121/71 and oxygen saturation was 96% on room air. CBC demonstrated leukocytosis with a white count of 13.9 but was otherwise unremarkable. There was a left shift with an 83.5% neutrophilia. Chemistry panel showed mild hyponatremia sodium 134, hypokalemia potassium 3.3. Renal function was normal. Her UA was suggestive of infection being positive for leuk esterase as well as nitrates few white cells and 4+ bacteria. Cultures for blood and urine were sent the emergency department she was started on antibiotics with ceftriaxone. She was admitted to the medical floor. Patient states today she is feeling much better overall. Was able to ambulate independently to the bathroom. Is asking for regular diet. States her dysuria is improved. Is tolerating clear liquids without problem. No further nausea or vomiting. Objective Data Objective Data Vital Signs: Vital Signs Temp Pulse Resp BP Pulse Ox O2 Del Method 98.1 F 64 16 123/68 H 94 Room Air 01/24/23 05:59 01/24/23 05:59 01/24/23 05:59 01/24/23 05:59 01/24/23 05:59 01/24/23 05:59 Oxygen Delivery Method Room Air Weight: 54.9 kg Body Mass Index (BMI) 21.4 Intake & Output: Intake and Output for Last 24 Hours 01/22/23 01/23/23 01/24/23 23:59 23:59 23:59 Intake Total 1160 / 1360 250 / 250 Output Total 200 / 200 Balance 1160 / 1160 50 / 50 Lab / Micro Data Result Diagrams: 01/24/23 07:37 01/24/23 07:37 Labs: Laboratory Results - last 24 hr 01/23/23 14:02: WBC 13.9 H, RBC 4.10 L, Hgb 13.2, Hct 41.7, MCV 101.7 H, MCH 32.2 H, MCHC 31.7 L, RDW Std Deviation 52.7 H, RDW Coeff of Jaleel 14.0, Plt Count 335, MPV 10.1, Immature Gran % (Auto) 0.500, Neut % (Auto) 83.5 H, Lymph % (Auto) 8.9 L, [place] % (Auto) 6.6, Eos % (Auto) 0.3, Baso % (Auto) 0.2, Absolute Neuts (auto) 11.6 H, Absolute Lymphs (auto) 1.23, Nucleated RBC % 0 01/23/23 14:02: Sodium 134 L, Potassium 3.3 L, Chloride 95 L, Carbon Dioxide 31.0, Anion Gap 8, BUN 16, Creatinine 0.75, Estim Creat Clear Calc 37.74, Est GFR (MDRD) Af Amer 96, Est GFR (MDRD) Non-Af 79, BUN/Creatinine Ratio 21.3 H, Glucose 139 H, Calcium 8.8, Total Bilirubin 1.20 H, AST 20, ALT 23, Alkaline Phosphatase 78, Total Protein 7.5, Albumin 3.6, Globulin 3.9, Albumin/Globulin Ratio 0.9 01/23/23 14:02: Magnesium 1.5 L 01/23/23 15:46: Urine Color Yellow, Urine Clarity Sl. Cloudy, Urine pH 7.0, Ur Specific [place] 1.010, Urine Protein 30 H, Urine Glucose (UA) Normal, Urine Ketones 15 H, Urine Occult Blood 10 H, Urine Nitrite Positive H, Urine Bilirubin Negative, Urine Urobilinogen 1 H, Ur Leukocyte Esterase 100 H, Urine RBC 0 SEEN, Urine WBC 0-5 SEEN, Ur Squamous Epith Cells 0 SEEN, Urine Bacteria 4+, Urine Mucus 0 SEEN 01/23/23 22:23: POC Glucose 108 H 01/24/23 06:18: POC Glucose 80 Radiography Diagnostic Testing: Radiology Impression Renal Ultrasound 01/23/23 18:16 IMPRESSION: Negative renal ultrasound. If clinical suspicion for pyelonephritis remains, consider renal protocol CT of the abdomen. Electronically Signed: Corey Garcia MD at 19:38 EDT , Physical Exam Const alert, oriented x3, no apparent distress and well nourished Constitutional Narrative: Thin, older white female, lying in bed, watching television, appears comfortable and nontoxic HEENT head/scalp atraumatic and moist oral mucous membranes HEENT Narrative: Mallampati 2, no thrush Head and Scalp: normocephalic Resp normal respiratory effort, no retractions, no use of accessory muscles and clear to auscultation bilaterally Resp Narrative: Diminished but clear Auscultation: Negative for rales, rhonchi or wheezes Cardio regular rate, regular rhythm, S1 normal heart sound, S2 normal heart sound, no murmurs, no rub, no gallops and no clicks GI normal to inspection, nondistended, normoactive bowel sounds, soft to palpation and non-tender GI Narrative: No suprapubic tenderness Extremity no clubbing, cyanosis or edema Extremity Narrative: Pedal pulses are 2+, decreased lean muscle mass Neuro oriented x3, moves all extremities and no focal motor deficits Speech: speech normal Psych affect normal Psych Narrative: Very pleasant, interacts appropriately Assessment & Plan Assessment/Plan (1) Nausea & vomiting: (2) Acute UTI: (3) Leukocytosis: (4) Hyponatremia: (5) Hypokalemia: (6) Hypomagnesemia: PLAN: Plan Acute urinary tract infection -UA suggestive of UTI -Blood pending -Urine culture is currently reporting presumptive E. coli with sensitivities pending -Continue ceftriaxone as ordered Nausea/vomiting -Resolved -Advance diet to cardiac carb controlled Hyponatremia -Resolved Hypokalemia -Remains low -40 mill colons p.o. potassium Hypomagnesemia -Resolved Hypophosphatemia -Replace with IV potassium -Recheck in a.m. Leukocytosis -Resolved with antibiotics -Differential still shows left shift -Continue antibiotics DM-2 -Patient only on oral agents at baseline -Hold metformin -Sliding scale -Cardiac/carb controlled diet initiated today -Accu-Cheks as ordered History of bilateral PE -Chemoprophylaxis -Patient not anticoagulated systemically Minimal CAD/HTN/history of Takotsubo cardiomyopathy -Cardiomyopathy has resolved -Continue medical therapy for minimal CAD -Continue amlodipine/benazepril -Continue carvedilol GERD -Continue Protonix p.o. twice daily Carotid artery stenosis -Less than 50% bilateral -Continue outpatient follow-up Arnold-Chiari malformation-1 -Previous suboccipital decompression and posterior aspect of C1 ring resection Chronic pain/fibromyalgia -Continue home medications Rheumatoid arthritis -Continue methotrexate weekly DVT prophylaxis -Lovenox 40 mg subcu daily CODE STATUS -DNR CCA no intubation Charges/Coding Visit Charges Inpatient E&M: 70320 Subs Hosp L2
[2023-01-24 07:43] VITALS: BP 113/65; PULSE 62; RESP 18; TEMP 36.8; O2SAT 95
[2023-01-24 07:45] LABS: Absolute Lymphocyte Count 1.02 X10^3/uL (0.83-4.51); Absolute Neutrophil Count 5.9 X10^3/uL (2.0-7.7); Basophil# 0.02 X10^3/uL; Basophil% 0.3 % (0-1); Eosinophil# 0.05 X10^3/uL; Eosinophils% 0.7 % (0-5); Hematocrit 33.8 % (37-47); Hemoglobin 10.6 g/dL (12.0-15.0); Lymphocyte # 1.02 X10^3/ul (0.83-4.51); Lymphocyte % 13.4 % (19-41); Mean Corp Hgb Conc 31.4 g/dL (32-36); Mean Corpuscular Hgb 32.5 pg (27.0-32.0); Mean Corpuscular Volume 103.7 fL (81-99); Mean Platelet Vol. 9.7 fl (6.2-12.0); Monocyte# 0.54 X10^3/uL; Monocyte% 7.1 % (0-10); NRBC Flagged by Analyzer 0 % (0-5); Neutrophil # 5.94 X10^3/uL (2.7-7.7); Neutrophil % 78.2 % (47-70); Platelet Count 196 K/mm3 (150-450); RBC Distribution Width CV 13.7 % (11.6-14.6); Red Blood Count 3.26 M/mm3 (4.2-5.4); White Blood Count 7.6 K/mm3 (4.4-11.0)
[2023-01-24] MEDS: Polyethylene Glycol 3350 17 GM PACKET PO (07:53)
[2023-01-24] MEDS: Senna/Docusate Sodium 1 Tablet 2 TABLET PO ×2 (07:53→21:08)
[2023-01-24] MEDS: Enoxaparin 40 MG/0.4 ML Syringe SC (07:55)
[2023-01-24] MEDS: Pantoprazole Sodium 40 MG Tablet PO (07:55)
[2023-01-24 08:02] LABS: Phosphorus 2.3 mg/dL (2.5-4.9)
[2023-01-24 08:06] LABS: ALB/GLOB Ratio 0.8 RATIO (0.9-2.4); AST(SGOT) 14 U/L (15-37); Alanine Aminotransfer ALT/SGPT 18 U/L (13-56); Albumin, Serum 2.6 g/dL (3.2-5.0); Alkaline Phosphatase 53 U/L (45-117); Anion Gap 7 (5-15); BUN 9 mg/dL (7-18); BUN/Creat Ratio 20.8 RATIO (10-20); Chloride 103 mmol/L (98-107); Creatinine, Serum 0.43 mg/dL (0.55-1.02); EST Glomerular Filtration Rate 150 mL/min (>60); Est Glom Filt Rate - Afr Amer 181 mL/min (>60); Estimated Creatinine Clearance 37.74 ml/min; Globulin 3.1 g/dL (2.2-4.2); Glucose 96 mg/dL (74-106); Magnesium 1.7 mg/dL (1.6-2.6); Potassium 3.3 mmol/L (3.5-5.1); Protein, Total 5.7 g/dL (6.4-8.2); Sodium Level 137 mmol/L (136-145)
[2023-01-24] MEDS: 0.9% Saline Lock 10 ML Syringe IV (09:37)
[2023-01-24] MEDS: Ceftriaxone 1 GM/50 ML BAG IV (09:37)
[2023-01-24] MEDS: Potassium Chloride Oral Tablet 20 MEQ 40 MEQ PO (10:53)
--- NOTE | 2023-01-24 11:18 | CASEMGMT ---
INDRA CAMERON Assessment: Face to Face with pt for initial transition planning/care coordination assessment. RN NISHA introduced self and role at [facility], pt voices understanding and consents to assessment. Pt is A/O x4 and answers all questions appropriately at this time. Pt sitting up in bed in no distress. Care providers, pharmacy, and demographics verified/updated. Admitting Dx: UTI PCP:Noelle Specialists:Ina, neuro; Maico, rheum; Zulma, cardio Preferred Pharmacy: [facility] Insurance: [employer] Prescription Benefit: yes LNOK: Rj Katz, sig other Living Arrangements: Pt lives alone in a mobile home with 2 steps to enter with a rail. Pt reports she is I in ADL's and denies concerns at home. Transportation: Pt drives self and denies concerns with transportation. DME/HHC/SNF:Pt has a cane and a rollator with seat. Pt denies hx of HHC or SNF stays. Pt states no concerns with going home at time of dc. She states she is presently receiving therapy at [facility] and would like to resume this upon dc. Pt 6 clicks=14, therapy order received. Pt states no further concerns/needs. CM to follow. Advised pt to ask CM if any further question/concerns/needs arise, voices understanding. Pt Goal: Home with outpt therapy already set up Plan: Home with outpt therapy set up pending PT fabiola
[2023-01-24 11:41] LABS: Bedside Glucose 113 mg/dL (74-106)
[2023-01-24 14:00] VITALS: BP 131/66; PULSE 61; RESP 18; TEMP 36.4; O2SAT 98
--- NOTE | 2023-01-24 15:04 | CASEMGMT ---
Social Work SW spoke with pt regarding advance directives. Pt states her son Alfa Castano is HCPOA and she also has a living will. SW notified pt that documents are not on file at [facility] and requested they be brought in for scanning into medical record. HAKAN Lamb
[2023-01-24 16:50] LABS: Bedside Glucose 112 mg/dL (74-106)
[2023-01-24 20:00] VITALS: BP 130/62; PULSE 65; RESP 16; TEMP 37.7; O2SAT 96
[2023-01-24] MEDS: MENTHOL 226.8 GM JAR 1 APPLIC TOPICAL (21:08)
[2023-01-24 21:36] LABS: Bedside Glucose 106 mg/dL (74-106)
[2023-01-25 02:00] VITALS: BP 117/60; PULSE 69; RESP 16; TEMP 37.1; O2SAT 99
[2023-01-25 05:41] VITALS: BMI 21.7
[2023-01-25] MEDS: Baclofen 10 MG Tablet 5 MG PO (06:20)
[2023-01-25] MEDS: Gabapentin 800 MG Tablet PO (06:20)
[2023-01-25 06:45] LABS: Bedside Glucose 109 mg/dL (74-106)
[2023-01-25 06:50] LABS: Absolute Lymphocyte Count 1.36 X10^3/uL (0.83-4.51); Absolute Neutrophil Count 4.7 X10^3/uL (2.0-7.7); Basophil# 0.03 X10^3/uL; Basophil% 0.4 % (0-1); Eosinophil# 0.09 X10^3/uL; Eosinophils% 1.3 % (0-5); Hematocrit 34.6 % (37-47); Hemoglobin 10.9 g/dL (12.0-15.0); Lymphocyte # 1.36 X10^3/ul (0.83-4.51); Lymphocyte % 19.7 % (19-41); Mean Corp Hgb Conc 31.5 g/dL (32-36); Mean Corpuscular Hgb 32.4 pg (27.0-32.0); Mean Platelet Vol. 10.3 fl (6.2-12.0); Monocyte# 0.68 X10^3/uL; Monocyte% 9.9 % (0-10); NRBC Flagged by Analyzer 0 % (0-5); Neutrophil # 4.71 X10^3/uL (2.7-7.7); Neutrophil % 68.3 % (47-70); Platelet Count 207 K/mm3 (150-450); RBC Distribution Width CV 13.8 % (11.6-14.6); RBC Distribution Width SD 52.8 fl (35.1-43.9); Red Blood Count 3.36 M/mm3 (4.2-5.4); White Blood Count 6.9 K/mm3 (4.4-11.0)
[2023-01-25 07:31] LABS: Anion Gap 7 (5-15); BUN 7 mg/dL (7-18); BUN/Creat Ratio 13.5 RATIO (10-20); Calcium,Total 8.2 mg/dL (8.5-10.1); Chloride 103 mmol/L (98-107); Creatinine, Serum 0.52 mg/dL (0.55-1.02); EST Glomerular Filtration Rate 121 mL/min (>60); Est Glom Filt Rate - Afr Amer 146 mL/min (>60); Estimated Creatinine Clearance 37.74 ml/min; Glucose 135 mg/dL (74-106); Phosphorus 2.8 mg/dL (2.5-4.9); Potassium 3.3 mmol/L (3.5-5.1); Sodium Level 139 mmol/L (136-145)
[2023-01-25] MEDS: Enoxaparin 40 MG/0.4 ML Syringe SC (08:03)
[2023-01-25] MEDS: Pantoprazole Sodium 40 MG Tablet PO (08:03)
[2023-01-25 08:30] VITALS: BP 126/77; PULSE 66; RESP 18; TEMP 37.1; O2SAT 98
[2023-01-25] MEDS: Ceftriaxone 1 GM/50 ML BAG IV (09:51)
[2023-01-25] MEDS: 0.9% Saline Lock 10 ML Syringe IV (09:51)
[2023-01-25 11:01] VITALS: O2SAT 95
[2023-01-25] MEDS: Polyethylene Glycol 3350 17 GM PACKET PO (11:19)
[2023-01-25] MEDS: Senna/Docusate Sodium 1 Tablet 2 TABLET PO (11:19)
[2023-01-25] MEDS: Insulin Lispro 100 UNIT/ML INSULN.PEN SC (11:26)
--- NOTE | 2023-01-25 11:46 | PCM.DC.SUM ---
Providers Date of Admission: 01/23/23 Date of Discharge: 01/25/23 Primary Care Physician: Dr. Margarita Drake DO Reason For Visit: UTI Diagnosis Discharge Diagnosis (1) Nausea & vomiting: Status: Acute Code(s): R11.2 - Nausea with vomiting, unspecified (2) Acute UTI: Status: Acute Code(s): N39.0 - Urinary tract infection, site not specified (3) Leukocytosis: Status: Acute Code(s): D72.829 - Elevated white blood cell count, unspecified (4) Hyponatremia: Status: Acute Code(s): E87.1 - Hypo-osmolality and hyponatremia (5) Hypokalemia: Status: Acute Code(s): E87.6 - Hypokalemia (6) Hypomagnesemia: Status: Acute Code(s): E83.42 - Hypomagnesemia Medications at Discharge Home Medications cholecalciferol (vitamin D3) 50 mcg (2,000 unit) capsule 1,000 unit PO DAILY HEALTH 10/22/18 metformin 500 mg tablet 500 mg PO BID GLUCOSE 03/23/21 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 #1 ea 06/29/21 methadone 5 mg tablet 10 mg PO TID PAIN 02/14/22 amlodipine 10 mg-benazepril 20 mg capsule (Lotrel) 1 cap PO BID BP 10/04/22 pantoprazole 20 mg tablet,delayed release (Protonix) 40 mg PO BID gerd 10/04/22 carvedilol 3.125 mg tablet 3.125 mg PO BID #60 tabs 11/17/22 folic acid 1 mg tablet 1 mg PO DAILY SUPPLEMENT 11/17/22 gabapentin 800 mg tablet 800 mg PO TID disc degeneration 11/17/22 methotrexate sodium 2.5 mg tablet 2.5 mg PO QWEEK arthritis pain 11/17/22 duloxetine 30 mg capsule,delayed release 30 mg PO QHS #30 caps 12/13/22 duloxetine 60 mg capsule,delayed release 60 mg PO QAM #30 caps 12/13/22 baclofen 10 mg tablet 5 - 10 mg PO TID PRN PRN post laminectomy syndrome 01/23/23 cephalexin 500 mg capsule 500 mg PO Q12H #10 caps 01/25/23 Hospital Course Operations None Procedures - (Renal ultrasound) Summary of Care Provided Minutes Spent on Discharge: 37 Hospital Course: Mrs. Kang is a 77-year-old white female who presented to the emergency department [facility] on 01/23/2023 with nausea, vomiting, and dysuria.? Her symptoms started the night prior to presentation.? She indicated her urine also has a foul order and she believed she may have a UTI.? She had subjective fever and sweats.? Vital signs on presentation showed a temperature of 97.6, heart rate 80, respiratory rate of 18, blood pressure 121/71 and oxygen saturation was 96% on room air.? CBC demonstrated leukocytosis with a white count of 13.9 but was otherwise unremarkable.? There was a left shift with an 83.5% neutrophilia.? Chemistry panel showed mild hyponatremia sodium 134, hypokalemia potassium 3.3.? Renal function was normal.? Her UA was suggestive of infection being positive for leuk esterase as well as nitrates few white cells and 4+ bacteria.? Cultures for blood and urine were sent the emergency department she was started on antibiotics with ceftriaxone.? Her nausea and vomiting resolved rather quickly and by the a.m. of 01/24/2023 she was feeling much better. We were able to advance her diet to a regular diet which she tolerated well. Her urine culture resulted positive for E. coli and it was a fairly pansensitive organism. Her leukocytosis had resolved and her left shift was resolved. She was seen by physical and Occupational Therapy. She overall did well however was not all that compliant with some of their suggestions indicating she was already following with outpatient therapy and indicated she would continue to do so. She was anxious to go home. Given the fact that she was eating well and we had sensitivities resulted on the a.m. of 01/25/2023 we able to discharge her home in stable condition. She was discharged home with a prescription for Keflex to complete her antibiotics. I discussed with her the importance of completing her antibiotic prescription to avoid resistance and she voiced understanding. She was able to be discharged home in stable condition on 01/25/2023. Discharge diagnoses: E. coli acute urinary tract infection Nausea and vomiting-resolved Hyponatremia-resolved Hypokalemia-repleted Hypomagnesemia-resolved Hypophosphatemia-resolved Leukocytosis-resolved DM-2 History of bilateral PE CAD Hypertension History of Takotsubo cardiomyopathy GERD Carotid artery stenosis Arnold-Chiari malformation type I Chronic pain Fibromyalgia Rheumatoid arthritis? Physical Exam Const alert, oriented x3, no apparent distress, average body habitus and well nourished Constitutional Narrative: Thin, older white female, lying in bed, watching television, appears comfortable and nontoxic General Appearance: cooperative, comfortable, well kempt and well developed Orientation / Consciousness: awake, oriented to person, oriented to place and oriented to time Exam Limitations: no limitations HEENT normocephalic, head/scalp atraumatic, hearing grossly normal bilaterally and moist oral mucous membranes HEENT Narrative: Mallampati is 2, no thrush Eyes PERRL, EOMs intact bilaterally and conjunctivae normal Eyes Narrative: No scleral icterus Neck no lymphadenopathy, supple and no JVD Neck Narrative: Trachea midline Resp normal respiratory effort, no retractions, no use of accessory muscles and clear to auscultation bilaterally Resp Narrative: Diminished but clear Auscultation: Negative for rales, rhonchi or wheezes Cardio regular rate, regular rhythm, S1 normal heart sound, S2 normal heart sound, no murmurs, no rub, no gallops and no clicks GI normal to inspection, nondistended, normoactive bowel sounds, soft to palpation and non-tender GI Narrative: No suprapubic tenderness Extremity no clubbing, cyanosis or edema Extremity Narrative: Pedal pulses are 2+, decreased lean muscle mass Skin no rashes or lesions noted, no wounds, skin turgor normal and no jaundice Skin Narrative: Skin does have changes consistent with chronic sun exposure Neuro oriented x3, CN's II-XII intact bilaterally, moves all extremities and no focal motor deficits Sensorium / Orientation: awake, alert, oriented to person, oriented to place and oriented to time Speech: speech normal Psych affect normal Psych Narrative: Very pleasant, interacts appropriately Weight / BMI Weight Weight: 55.7 kg Body Mass Index (BMI) 21.7 ABG / Lab / Microbiology Data Result Diagrams: 01/25/23 05:12 01/25/23 05:12 Laboratory: Laboratory Results - last 24 hr 01/24/23 16:29: POC Glucose 112 H 01/24/23 21:12: POC Glucose 106 01/25/23 05:12: WBC 6.9, RBC 3.36 L, Hgb 10.9 L, Hct 34.6 L, MCV 103.0 H, MCH 32.4 H, MCHC 31.5 L, RDW Std Deviation 52.8 H, RDW Coeff of Jaleel 13.8, Plt Count 207, MPV 10.3, Immature Gran % (Auto) 0.400, Neut % (Auto) 68.3, Lymph % (Auto) 19.7, [place] % (Auto) 9.9, Eos % (Auto) 1.3, Baso % (Auto) 0.4, Absolute Neuts (auto) 4.7, Absolute Lymphs (auto) 1.36, Nucleated RBC % 0 01/25/23 05:12: Sodium 139, Potassium 3.3 L, Chloride 103, Carbon Dioxide 29.0, Anion Gap 7, BUN 7, Creatinine 0.52 L, Estim Creat Clear Calc 37.74, Est GFR (MDRD) Af Amer 146, Est GFR (MDRD) Non-Af 121, BUN/Creatinine Ratio 13.5, Glucose 135 H, Calcium 8.2 L, Phosphorus 2.8 01/25/23 06:22: POC Glucose 109 H Microbiology: Microbiology 01/23/23 15:46 Urine Catheter - Catheter Urine Culture - Final Presumptive E. coli D/C Instructions Discharge Diet: Low fat / Low cholesterol and 1800 Calorie Control Diet Discharge Activity: Return to Normal Activity Meaningful Use Info Meaningful Use Diagnoses (Choose all that apply): None applicable Discharge Plan Admission Admit Date/Time: 01/23/23 18:14 Primary Reason for Your Visit: Nausea/vomiting/dysuria Attending Provider: Aye Gómez Primary Care Provider: Margarita Drake Consulting Providers: Everton Champagne Discharge Orders/Prescriptions Prescriptions: New cephalexin 500 mg capsule 500 mg PO Q12H Qty: 10 0RF Continued cholecalciferol (vitamin D3) 2,000 unit capsule 1,000 unit PO DAILY metformin 500 mg tablet 500 mg PO BID (DME) 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 See Rx Instructions .Route .MEDSUPPLY Qty: 1 0RF Rx Instructions: Wear at night. duloxetine 60 mg capsule,delayed release(DR/EC) 60 mg PO QAM Qty: 30 6RF duloxetine 30 mg capsule,delayed release(DR/EC) 30 mg PO QHS Qty: 30 7RF folic acid 1 mg tablet 1 mg PO DAILY gabapentin 800 mg tablet 800 mg PO TID methotrexate sodium 2.5 mg tablet 2.5 mg PO QWEEK Rx Instructions: take 8 tablets per week methadone 5 mg tablet 10 mg PO TID Label Comments: TAKE 1 TABLET BY MOUTH TWICE DAILY pantoprazole [Protonix] 20 mg Tablet,Delayed Release (Dr/Ec) 40 mg PO BID amlodipine-benazepril [Lotrel] 10-20 mg Capsule 1 cap PO BID baclofen 10 mg tablet 5 - 10 mg PO TID PRN PRN (Reason: post laminectomy syndrome) Label Comments: take 1/2 to 1 tablet BY MOUTH THREE TIMES DAILY NEEDED for spasm carvedilol 3.125 mg tablet 3.125 mg PO BID Qty: 60 11RF Rx Instructions: must administer with a meal/food Referrals / Follow Up: Margarita Drake DO [Primary Care Provider] - Within 3 Months Disposition Disposition (needs filled in before D/C Order can be placed): Home, Self Care Charges/Coding Visit Charges Inpatient E&M: 07661 Disch Hosp >30min
[2023-01-25 11:50] LABS: Bedside Glucose 153 mg/dL (74-106)
[2023-01-25] MEDS: Potassium Chloride Oral Tablet 20 MEQ 40 MEQ PO (12:08)
[2023-01-25] MEDS: Acetaminophen 325 MG Tablet 650 MG PO (12:08)
[2023-01-25 12:50] VITALS: BP 143/77; PULSE 72; RESP 18; TEMP 37; O2SAT 97
== END 2023-01-25 13:27 | disposition home or self-care (01) | DRG 690 ==
LOC: ED 18:10 → MS3 18:43
PROVIDERS: Admitting Provider Internal Medicine; Emergency Provider Emergency Medicine; PCP Internal Medicine; Visit Provider Internal Medicine
DX: N30.00 Acute cystitis without hematuria (principal); E87.1 Hypo-osmolality and hyponatremia; E83.39 Other disorders of phosphorus metabolism; E11.42 Type 2 diabetes mellitus with diabetic polyneuropathy; E78.5 Hyperlipidemia, unspecified; B96.20 Unspecified Escherichia coli [E. coli] as the cause of diseases classified elsewhere; M06.9 Rheumatoid arthritis, unspecified; I25.10 Atherosclerotic heart disease of native coronary artery without angina pectoris; I10 Essential (primary) hypertension; K21.9 Gastro-esophageal reflux disease without esophagitis; E87.6 Hypokalemia; E83.42 Hypomagnesemia; M79.7 Fibromyalgia; I65.23 Occlusion and stenosis of bilateral carotid arteries; G89.4 Chronic pain syndrome; Z95.5 Presence of coronary angioplasty implant and graft; Z98.1 Arthrodesis status; Z66 Do not resuscitate; Z96.643 Presence of artificial hip joint, bilateral; Z96.651 Presence of right artificial knee joint; Z79.84 Long term (current) use of oral hypoglycemic drugs; Z79.899 Other long term (current) drug therapy; Z86.711 Personal history of pulmonary embolism
CPT/HCPCS: 36415; 76770; 80048; 80053; 81001; 82962; 83735; 84100; 85025; 87040; 87086; 87088; 87186; 94668; 97161; 97802; 99252; 99285; J7050; P9612; A4216; G0463; J2405

== ENCOUNTER → 2023-02-08 | Outpatient (CLI) | payer MEDICARE, OTHER, SELFPAY ==
[2023-02-08 12:56] LABS: Absolute Lymphocyte Count 1.27 X10^3/uL (0.83-4.51); Absolute Neutrophil Count 2.7 X10^3/uL (2.0-7.7); Basophil# 0.05 X10^3/uL; Basophil% 1.1 % (0-1); Eosinophils% 4.5 % (0-5); Hematocrit 36.1 % (37-47); Hemoglobin 11.3 g/dL (12.0-15.0); Lymphocyte # 1.27 X10^3/ul (0.83-4.51); Lymphocyte % 28.5 % (19-41); Mean Corp Hgb Conc 31.3 g/dL (32-36); Mean Corpuscular Hgb 32.3 pg (27.0-32.0); Mean Corpuscular Volume 103.1 fL (81-99); Mean Platelet Vol. 10.5 fl (6.2-12.0); Monocyte# 0.25 X10^3/uL; Monocyte% 5.6 % (0-10); NRBC Flagged by Analyzer 0 % (0-5); Neutrophil # 2.67 X10^3/uL (2.7-7.7); Neutrophil % 60.1 % (47-70); Platelet Count 390 K/mm3 (150-450); RBC Distribution Width CV 13.5 % (11.6-14.6); RBC Distribution Width SD 51.1 fl (35.1-43.9); White Blood Count 4.5 K/mm3 (4.4-11.0)
[2023-02-08 13:21] LABS: ALB/GLOB Ratio 0.8 RATIO (0.9-2.4); AST(SGOT) 10 U/L (15-37); Alanine Aminotransfer ALT/SGPT 14 U/L (13-56); Albumin, Serum 2.8 g/dL (3.2-5.0); Alkaline Phosphatase 68 U/L (45-117); Anion Gap 7 (5-15); BUN 8 mg/dL (7-18); BUN/Creat Ratio 9.6 RATIO (10-20); Calcium,Total 8.9 mg/dL (8.5-10.1); Chloride 101 mmol/L (98-107); Creatinine, Serum 0.83 mg/dL (0.55-1.02); EST Glomerular Filtration Rate 70 mL/min (>60); Est Glom Filt Rate - Afr Amer 85 mL/min (>60); Globulin 3.7 g/dL (2.2-4.2); Glucose 147 mg/dL (74-106); Potassium 3.3 mmol/L (3.5-5.1); Protein, Total 6.5 g/dL (6.4-8.2); Sodium Level 138 mmol/L (136-145)
== END | disposition home or self-care (01) ==
LOC: MTLAB 10:27
PROVIDERS: PCP Internal Medicine; Referring Provider Internal Medicine Rheumatology; Visit Provider Internal Medicine Rheumatology
DX: M06.4 Inflammatory polyarthropathy (principal); Z79.899 Other long term (current) drug therapy
CPT/HCPCS: 36415; 80053; 85025

== ENCOUNTER 2023-03-01 13:00 | Outpatient (RCR) | payer MEDICARE, OTHER, SELFPAY ==
--- NOTE | 2023-01-03 10:35 | HP.PTEVAL_ITS ---
Patient's Visit Information BEN MAHARAJ is a 77 year old F referred to Physical Therapy by Dr. Margarita Drake DO with a diagnosis of Poor balance, gait assessment, generalized weakness. Date of Evaluation: 01/03/23 Physical Therapist: Gilbert Siddiqui DPT - Visit Plan Frequency: 2x /Week Duration: 4 Weeks Plan: Start with balance neurocom assessment, progress BLE strength with focus on L hip, B calves and core stability. Add in static and dynamic balance activities as well as adding in exercises to target areas identified by balance assessment. - Subjective Pt. is here today for her initial evaluation with diagnosis poor balance, and need for gait training. Pt. reports my leg just feel really weak. Pt. 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 She has had multiple surgeries including B knee replacements, B hip replacements, lumbar and cervical fusions. Most recently she has/had a cervical fracture above her fusion site. Pt. arrives using her cane, but uses rollator at home a decent amount and also uses her rollator when she has to walk longer distances. Pt. believe her imbalance is due to her leg weakness. Pt. is hopeful to improve her strength in order to get back to walking better and reduce her risk for falls. - Objective POSTURE: pt. has forward posture with wider TATE. FH noted as well with increased thoracic kyphosis. PALPATION: Pt. has no pain with palpation of BLEs. NEURO: Pt. has slight reduction in sensation in BLEs, pt. has peripheral neuropathy in BLEs. Pt. has normal 2+ DTR bilaterally. ROM: Pt. as decent ROM of BLEs. Pt. has tight HS and calves, but no too bad. Pt. decent B knee ROM. MMT: RLE: ankle DF 13#, PF 32#; knee: ext 31#, flexion 12#; hip: flexion 14#, abd 10#, ext 5#. LLE: ankle DF 14#, PF 33#; knee: ext 33#, flexion 14#; HIP: flexion 12#, abd 5#, ext 5#. Core strength- poor. GAIT: Pt. ambulates with SPC. Pt. has decreased bilateral step length, increased lateral hip sway noted. Forward posture and reduced tempo noted. She will try and reach out of shaw to stabilize. Without AD she has marked L Trendelenburg pattern noted during L stance, resulting in reduced R step length and increased instability. With use of FWW she does well with good stability. FGA was completed without AD. She had a very difficult time completing this without use of AD. Pt. would benefit from neurocom balance assessment to identify further difficult areas. - Balance/Special Test Scores Functional Gait Assessment Score: 4 % Disability: 86.6700 CATSIB Score (Max score 120 seconds): 55 Lower Extremity Functional Score: 0 TUG Test Time Seconds: 33 - Goals Goal 1:: LTG: Pt. to be I with HEP for balance and BLEs strengthening. Goal Time Frame: 4-6 Weeks Goal 2:: LTG: Pt. to have increased BLE strength by 1/2 grade allowing for increased stability with all gait and functional mobility. Goal Time Frame: 4-6 Weeks Goal 3:: LTG: Pt. to be able to walk 350' with LRD with improved gait pattern and increased stability noted. Goal Time Frame: 4-6 Weeks Goal 4:: LTG: Pt. to have improved CATSIB score to 100 indicating increased stability in static stance. Goal Time Frame: 4-6 Weeks Goal 5:: LTG: pt. to have improved TUG time to less than 25sec with LRD. Goal Time Frame: 4-6 Weeks - Rehabilitation Potential Physical Therapy Diagnosis: Pt. presents with Poor balance, gait assessment, generalized weakness. Pt. has marked global weakness, but L hip more than the rest. She has decreased stability without use of external aide as well. She would benefit from PT to address her instability with her gait, increased BLE strength and increase her safety with the most appropriate AD. Rehabilitation Potential: Fair - Anticipated Interventions Patient/Client Instruction: Educate patient on: Condition, Plan of Care, Risk Factors, Benefits of Fitness Program For the Purpose of:: To foster healthy habits, To improve decision making, To facilitate caregiver knowledge, To improve self management, To prevent re- injury, To improve ability to perform tasks related to life management Therapeutic Exercise to Include: Strength training, Power training, Balance training, Agility training, Body mechanics, Postural training, Neuromotor development, via Neurocom Balance Mas, Passive ROM, Active ROM, Dynamic Lumbar Stabilization, Adelia Exercises For the Purpose of:: To increase ROM, To improve nutrient delivery to tissue, To increase oxygenation perfusion, To improve muscle performance and motor function, To improve ability to perform ADL's, To increase tolerance to activity/condition/position, To improve performance and independence with ADL's, To improve gait and locomotor functions, To improve health of tissue, To decrease soft tissue restriction, To improve endurance Thank you for the opportunity to evaluate your patient. For Medicare and Medicare HMO plans, please review the plan of care and approve it. It will need to be FAXED BACK to us at [phone] for Medicare purposes. For Medicare only, by signing this I certify the plan of care. Please let me know if there are questions or concerns regarding this plan of care. Physician Signature: Date:
--- NOTE | 2023-02-21 13:54 | HP.PTREVAL_ITS ---
Dr. Margarita Drake, DO, It has been my pleasure to treat BEN MAHARAJ over the last 9 visits for Poor balance, gait assessment, generalized weakness. Please see the progress note below for an update on the physical therapy plan of care! Subjective: Pt. reports overall doing better. Pt. was in the hospital a few weeks ago for a UTI, but is doing better now. Objective/Function: gait: walked 263' with SPC. Pt. was ALESIA with this but methodical with her pattern. She continues to had increased difficulty during L stance phase. with increased lateral sway. TU.4sec spc. MMT: RLE: ankle 5/5 throughout; knee: ext 34#, flexion 15#; hip: flexion 18#, abd 11#. LLE: ankle 5/5 throughout; knee: ext 31.3#, flexion 15.3#; hip: flexion 19#, abd 11#, Core strength poor. CATSIB: 111- difficulty with eyes closed. Pt. has improved and met some of her goals. She is still not quite there with her BLE strength, walking endurance. I would also like her to improve her dynamic balance to increase her stability with gait. Plan Plan: Pt. has progressed with her strength and endurance, but is still lacking in both and with her stability with gait. I would like to see her x2 per week for 4 weeks. Focus on improving dynamic balance, BLE strength and progression of endurance with gait. Balance/Gait/Functional tests - Balance/Special Test Scores Functional Gait Assessment Score: 4 % Disability: 86.6700 CATSIB Score (Max score 120 seconds): 111 Lower Extremity Functional Score: 14 TUG Test Time Seconds: 33 Goals Goal 1:: LTG: Pt. to be I with HEP for balance and BLEs strengthening. Goal Time Frame: 4-6 Weeks Goal Progress: Progressing Goal 2:: LTG: Pt. to have increased BLE strength by 1/2 grade allowing for increased stability with all gait and functional mobility. Goal Time Frame: 4-6 Weeks Goal Progress: Progressing Goal 3:: LTG: Pt. to be able to walk 350' with LRD with improved gait pattern and increased stability noted. Goal Time Frame: 4-6 Weeks Goal Progress: Progressing Goal 4:: LTG: Pt. to have improved CATSIB score to 100 indicating increased stability in static stance. Goal Time Frame: 4-6 Weeks Goal Progress: Goal Met Goal 5:: LTG: pt. to have improved TUG time to less than 25sec with LRD (MET). NEW GOAL: 02/21/23: Pt. to have improved TUG time under 20sec with SPC. Goal Time Frame: 4-6 Weeks Goal Progress: Progressing Goal 6:: LTG: Pt. to complete FGA with score of at least 11/30 indicating improved dynamic balance. Goal Time Frame: 4-6 Weeks Anticipated Interventions Patient/Client Instruction: Educate patient on: Condition, Plan of Care, Risk Factors, Benefits of Fitness Program For the Purpose of:: To foster healthy habits, To improve decision making, To facilitate caregiver knowledge, To improve self management, To prevent re- injury, To improve ability to perform tasks related to life management Therapeutic Exercise to Include: Strength training, Power training, Balance training, Agility training, Body mechanics, Postural training, Neuromotor development, via [employer] Balance Mas, Passive ROM, Active ROM, Dynamic Lumbar Stabilization, Adelia Exercises For the Purpose of:: To increase ROM, To improve nutrient delivery to tissue, To increase oxygenation perfusion, To improve muscle performance and motor function, To improve ability to perform ADL's, To increase tolerance to activity/condition/position, To improve performance and independence with ADL's, To improve gait and locomotor functions, To improve health of tissue, To decrease soft tissue restriction, To improve endurance Please do not hesitate to contact me at [phone] by phone or if you have questions or concerns regarding this new plan of care! Sincerely, Gilbert Siddiqui DPT
--- NOTE | 2023-03-09 07:05 | HP.PTDCSUM ---
Discharge Summary D/C summary: It has been my pleasure to treat BEN MAHARAJ referred by Dr. Margarita Drake DO, with the diagnosis of Poor balance, gait assessment, generalized weakness for a total of 10 visit(s). Discharge Date: Please see the following information for a summary of their discharge status. Subjective Subjective: Pt states tripping over her feet and falling the other night in the kitchen - was walking with her walker and carrying a plate of watermelon. States hitting the Right side above the eye and a little on her cheek. Most pain in the Right thigh, about 2/10. Able to crawl over to the sink and get herself up. Denies any concussion sxs. Presents today with her SC. Overall Improvement % Improvement: 60 Objective Objective/Function: Progressed functional endurance and strength today. Added more dynamic balance activities. Used a gait belt today d/t seeming a bit more unsteady. Still ambulates with significant knee flexion in stance phase (carlene w/o her SC) - states it's from having artificial knees. Goals Goal 1:: LTG: Pt. to be I with HEP for balance and BLEs strengthening. Goal Progress: Progressing Goal 2:: LTG: Pt. to have increased BLE strength by 1/2 grade allowing for increased stability with all gait and functional mobility. Goal Progress: Progressing Goal 3:: LTG: Pt. to be able to walk 350' with LRD with improved gait pattern and increased stability noted. Goal Progress: Progressing Goal 4:: LTG: Pt. to have improved CATSIB score to 100 indicating increased stability in static stance. Goal Progress: Goal Met Goal 5:: LTG: pt. to have improved TUG time to less than 25sec with LRD (MET). NEW GOAL: 02/21/23: Pt. to have improved TUG time under 20sec with SPC. Goal Progress: Progressing Goal 6:: LTG: Pt. to complete FGA with score of at least 11/30 indicating improved dynamic balance. Plan Plan: Pt. has progressed with her strength and endurance, but is still lacking in both and with her stability with gait. I would like to see her x2 per week for 4 weeks. Focus on improving dynamic balance, BLE strength and progression of endurance with gait. D/C Information d/c sentence: If there are questions or concerns regarding this patient's physical therapy, please feel free to call me at [phone]. Thank you for the referral of this patient. Sincerely, Gilbert Siddiqui, DPT Balance/Gait/Functional tests Balance/Special Test Scores Functional Gait Assessment Score: 4 % Disability: 86.6700 CATSIB Score (Max score 120 seconds): 111 Lower Extremity Functional Score: 14 TUG Test Time Seconds: 33
== END 2023-03-01 19:00 | disposition home or self-care (01) ==
LOC: PT 13:00
PROVIDERS: PCP Internal Medicine; Referring Provider Internal Medicine; Visit Provider Internal Medicine
DX: R26.81 Unsteadiness on feet (principal); R53.1 Weakness
CPT/HCPCS: 97110; 97161; 97164

== ENCOUNTER 2023-03-05 13:46 | Emergency (ER) | payer MEDICARE, OTHER, SELFPAY ==
[2023-03-05 13:47] VITALS: BP 116/83; PULSE 101; RESP 16; TEMP 36.6; O2SAT 100
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
[2023-03-05 14:28] LABS: Absolute Lymphocyte Count 1.11 X10^3/uL (0.83-4.51); Absolute Neutrophil Count 4.1 X10^3/uL (2.0-7.7); Basophil# 0.05 X10^3/uL; Basophil% 0.9 % (0-1); Eosinophil# 0.02 X10^3/uL; Eosinophils% 0.4 % (0-5); Hematocrit 43.5 % (37-47); Hemoglobin 13.9 g/dL (12.0-15.0); Lymphocyte # 1.11 X10^3/ul (0.83-4.51); Lymphocyte % 19.8 % (19-41); Mean Corpuscular Hgb 31.3 pg (27.0-32.0); Mean Platelet Vol. 9.9 fl (6.2-12.0); Monocyte# 0.36 X10^3/uL; Monocyte% 6.4 % (0-10); NRBC Flagged by Analyzer 0 % (0-5); Neutrophil # 4.05 X10^3/uL (2.7-7.7); Platelet Count 339 K/mm3 (150-450); RBC Distribution Width CV 13.4 % (11.6-14.6); Red Blood Count 4.44 M/mm3 (4.2-5.4); White Blood Count 5.6 K/mm3 (4.4-11.0)
[2023-03-05 14:46] LABS: ALB/GLOB Ratio 0.9 RATIO (0.9-2.4); AST(SGOT) 19 U/L (15-37); Alanine Aminotransfer ALT/SGPT 13 U/L (13-56); Albumin, Serum 3.2 g/dL (3.2-5.0); Alkaline Phosphatase 77 U/L (45-117); Anion Gap 8 (5-15); BUN 6 mg/dL (7-18); BUN/Creat Ratio 9.4 RATIO (10-20); Calcium,Total 8.6 mg/dL (8.5-10.1); Chloride 101 mmol/L (98-107); Creatinine, Serum 0.64 mg/dL (0.55-1.02); EST Glomerular Filtration Rate 95 mL/min (>60); Est Glom Filt Rate - Afr Amer 115 mL/min (>60); Globulin 3.6 g/dL (2.2-4.2); Glucose 146 mg/dL (74-106); Lipase 10 U/L (13-75); Potassium 2.8 mmol/L (3.5-5.1); Protein, Total 6.8 g/dL (6.4-8.2); Sodium Level 139 mmol/L (136-145)
[2023-03-05] MEDS: 0.9% Normal Saline 1,000 ML 1000 ML IV (14:57)
[2023-03-05] MEDS: Ondansetron 4 MG/2 ML Vial IV (14:58)
[2023-03-05 15:15] LABS: Mucous, Urine 0 SEEN /hpf (<or=2+)
[2023-03-05 15:17] VITALS: BMI 21.2
[2023-03-05 15:18] LABS: Color, Urine Yellow (Yellow); Glucose, Dipstick Normal (Normal); Ketone-Dipstick 5 mg/dl (Negative); Leukocyte Esterase-Dipstick 100 /ul (Negative); Nitrite-Dipstick Negative (Negative); Occult Blood-Urine Negative /ul (Negative); Protein-Dipstick Negative (Negative); Urine Bilirubin Dipstick Negative (Negative); Urine Clarity Sl. Cloudy (Clear); Urine Urobilinogen Normal (Normal)
[2023-03-05] MEDS: Potassium Chloride 10mEq/100mL 10 MEQ/100 ML IV.SOLN. 100 MEQ IV BOLUS ×2 (15:29→16:30)
[2023-03-05 15:49] LABS: Red Blood Cells-Urine 0-5 SEEN /hpf (0-5); Squamous Epithelial Cells - UA 0-5 SEEN /hpf (5-10); White Blood Cells 25-50 SEEN /hpf (0-5)
[2023-03-05 15:50] LABS: Amorphous Sediment 1+ PHOS; Bacteria RARE /hpf (None Seen)
[2023-03-05 16:01] VITALS: BP 109/62; PULSE 60; RESP 15; O2SAT 95
[2023-03-05] MEDS: Potassium Chloride Oral Tablet 20 MEQ 60 MEQ PO (16:36)
== END 2023-03-05 17:41 | disposition home or self-care (01) ==
PROVIDERS: Emergency Provider Emergency Medicine; PCP Internal Medicine; Visit Provider Emergency Medicine
DX: R11.2 Nausea with vomiting, unspecified (principal); E87.6 Hypokalemia; R10.9 Unspecified abdominal pain; I25.10 Atherosclerotic heart disease of native coronary artery without angina pectoris; G47.33 Obstructive sleep apnea (adult) (pediatric); Z86.718 Personal history of other venous thrombosis and embolism; Z86.711 Personal history of pulmonary embolism
CPT/HCPCS: 80053; 81001; 83690; 85025; 96365; 96375; 99284; A4216; J2405

== ENCOUNTER → 2023-03-20 | Outpatient (CLI) | payer MEDICARE, OTHER, SELFPAY ==
[2023-03-20 10:25] LABS: Bacteria 0 SEEN /hpf (None Seen); Mucous, Urine 0 SEEN /hpf (<or=2+); Red Blood Cells-Urine 0 SEEN /hpf (0-5)
[2023-03-20 12:10] LABS: Color, Urine Yellow (Yellow); Glucose, Dipstick Normal (Normal); Ketone-Dipstick Negative (Negative); Leukocyte Esterase-Dipstick 100 /ul (Negative); Nitrite-Dipstick Negative (Negative); Occult Blood-Urine Negative /ul (Negative); Protein-Dipstick Negative (Negative); Specific Gravity, Urine 1.005 (1.002-1.030); Urine Bilirubin Dipstick Negative (Negative); Urine Clarity Sl. Cloudy (Clear); Urine Urobilinogen Normal (Normal)
[2023-03-20 12:14] LABS: Absolute Lymphocyte Count 1.79 X10^3/uL (0.83-4.51); Absolute Neutrophil Count 5.2 X10^3/uL (2.0-7.7); Basophil# 0.04 X10^3/uL; Basophil% 0.5 % (0-1); Eosinophil# 0.16 X10^3/uL; Eosinophils% 2.2 % (0-5); Hematocrit 39.6 % (37-47); Hemoglobin 12.3 g/dL (12.0-15.0); Lymphocyte # 1.79 X10^3/ul (0.83-4.51); Lymphocyte % 24.3 % (19-41); Mean Corp Hgb Conc 31.1 g/dL (32-36); Mean Corpuscular Hgb 31.5 pg (27.0-32.0); Mean Corpuscular Volume 101.3 fL (81-99); Mean Platelet Vol. 10.5 fl (6.2-12.0); Monocyte# 0.16 X10^3/uL; Monocyte% 2.2 % (0-10); NRBC Flagged by Analyzer 0 % (0-5); Neutrophil # 5.17 X10^3/uL (2.7-7.7); Neutrophil % 70.1 % (47-70); Platelet Count 325 K/mm3 (150-450); Red Blood Count 3.91 M/mm3 (4.2-5.4); White Blood Count 7.4 K/mm3 (4.4-11.0)
[2023-03-20 12:19] LABS: Squamous Epithelial Cells - UA 0-5 SEEN /hpf (5-10); White Blood Cells 10-25 SEEN /hpf (0-5)
[2023-03-20 12:40] LABS: Vitamin D,25 Hydroxy 63.8 ng/mL
[2023-03-20 12:43] LABS: Microalbumin,Random Urine 7.5 mg/L (NO RANGE EST.); Microalbumin:Creatinine Ratio 25.2 mg/g CRE (<30 mg/g CRE)
[2023-03-20 13:10] LABS: AST(SGOT) 16 U/L (15-37); Alanine Aminotransfer ALT/SGPT 18 U/L (13-56); Albumin, Serum 3.3 g/dL (3.2-5.0); Alkaline Phosphatase 75 U/L (45-117); Anion Gap 6 (5-15); BUN 13 mg/dL (7-18); BUN/Creat Ratio 18.7 RATIO (10-20); Calcium,Total 8.5 mg/dL (8.5-10.1); Chloride 101 mmol/L (98-107); Cholesterol 148 mg/dL (200); EST Glomerular Filtration Rate 86 mL/min (>60); Est Glom Filt Rate - Afr Amer 104 mL/min (>60); Globulin 3.3 g/dL (2.2-4.2); Glucose 181 mg/dL (74-106); High Density Lipoprotein 39 mg/dL; Potassium 4.7 mmol/L (3.5-5.1); Protein, Total 6.6 g/dL (6.4-8.2); Sodium Level 138 mmol/L (136-145); Thyroid Stim Hormone (TSH) 3.53 uIU/mL (0.358-3.74); Triglycerides 189 mg/dL; Very Low Density Lipoprotein 38 mg/dL (5-40)
== END | disposition home or self-care (01) ==
LOC: MTLAB 10:20
PROVIDERS: PCP Internal Medicine; Referring Provider Internal Medicine; Visit Provider Internal Medicine
DX: E55.9 Vitamin D deficiency, unspecified (principal); E11.9 Type 2 diabetes mellitus without complications
CPT/HCPCS: 36415; 80053; 80061; 81001; 82043; 82306; 82570; 84443; 85025

== ENCOUNTER → 2023-04-28 | Outpatient (CLI) | payer MEDICARE, OTHER, SELFPAY ==
[2023-04-28 15:21] LABS: Absolute Lymphocyte Count 1.31 X10^3/uL (0.83-4.51); Basophil# 0.04 X10^3/uL; Basophil% 0.5 % (0-1); Eosinophil# 0.08 X10^3/uL; Hematocrit 37.3 % (37-47); Hemoglobin 11.8 g/dL (12.0-15.0); Lymphocyte # 1.31 X10^3/ul (0.83-4.51); Lymphocyte % 16.6 % (19-41); Mean Corp Hgb Conc 31.6 g/dL (32-36); Mean Corpuscular Hgb 31.6 pg (27.0-32.0); Mean Platelet Vol. 9.9 fl (6.2-12.0); Monocyte# 0.39 X10^3/uL; NRBC Flagged by Analyzer 0 % (0-5); Neutrophil # 6.03 X10^3/uL (2.7-7.7); Neutrophil % 76.6 % (47-70); Platelet Count 347 K/mm3 (150-450); RBC Distribution Width CV 14.1 % (11.6-14.6); Red Blood Count 3.73 M/mm3 (4.2-5.4); White Blood Count 7.9 K/mm3 (4.4-11.0)
[2023-04-28 15:36] LABS: ALB/GLOB Ratio 0.8 RATIO (0.9-2.4); AST(SGOT) 15 U/L (15-37); Alanine Aminotransfer ALT/SGPT 12 U/L (13-56); Albumin, Serum 3.1 g/dL (3.2-5.0); Alkaline Phosphatase 101 U/L (45-117); Anion Gap 5 (5-15); BUN 9 mg/dL (7-18); Calcium,Total 8.5 mg/dL (8.5-10.1); Chloride 100 mmol/L (98-107); Creatinine, Serum 0.64 mg/dL (0.55-1.02); EST Glomerular Filtration Rate 94 mL/min (>60); Est Glom Filt Rate - Afr Amer 114 mL/min (>60); Globulin 3.7 g/dL (2.2-4.2); Glucose 149 mg/dL (74-106); Potassium 3.2 mmol/L (3.5-5.1); Protein, Total 6.8 g/dL (6.4-8.2); Sodium Level 137 mmol/L (136-145)
== END | disposition home or self-care (01) ==
LOC: MTLAB 13:20
PROVIDERS: PCP Internal Medicine; Referring Provider Internal Medicine Rheumatology; Visit Provider Internal Medicine Rheumatology
DX: M06.4 Inflammatory polyarthropathy (principal); M79.7 Fibromyalgia; Z79.899 Other long term (current) drug therapy
CPT/HCPCS: 36415; 80053; 85025

== ENCOUNTER 2023-07-28 11:19 | Emergency (ER) | payer MEDICARE, OTHER, SELFPAY ==
[2023-07-28 11:19] VITALS: BP 169/101; PULSE 77; RESP 18; TEMP 35.9; O2SAT 97
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
[2023-07-28 12:06] LABS: Mucous, Urine 0 SEEN /hpf (<or=2+); Red Blood Cells-Urine 0 SEEN /hpf (0-5); Squamous Epithelial Cells - UA 0 SEEN /hpf (5-10)
[2023-07-28 12:10] LABS: Color, Urine Yellow (Yellow); Glucose, Dipstick Normal (Normal); Ketone-Dipstick Negative (Negative); Leukocyte Esterase-Dipstick 500 /ul (Negative); Nitrite-Dipstick Positive (Negative); Occult Blood-Urine 50 /ul (Negative); Protein-Dipstick 30 mg/dl (Negative); Urine Bilirubin Dipstick Negative (Negative); Urine Clarity Cloudy (Clear); Urine Urobilinogen Normal (Normal)
--- NOTE | 2023-07-28 12:20 | RAD_ITS ---
STUDY: X-RAY CHEST REASON FOR EXAM: Female, 78 years old. Cough. TECHNIQUE: Frontal and lateral views of the chest. COMPARISON: November 2022. FINDINGS: Stable cardiomegaly, aortic tortuosity with calcification, prominent central pulmonary arteries and hyperinflation. New patchy opacity projected over the posterior aspect of the lungs on the lateral view compatible with early/developing pneumonia. Diffuse moderate osteopenia, spondylosis and postsurgical changes of the upper lumbar spine, unaltered. No abnormality of the visualized soft tissue structures of the upper abdomen. RAD/Chest PA and Lateral IMPRESSION: Cardiomegaly, hyperinflation and findings compatible with early/developing pneumonia. Follow-up chest imaging to resolution recommended. Electronically Signed: Heraclio Meredith MD at 12:41 EST ,
[2023-07-28 12:21] LABS: Bacteria 2+ /hpf (None Seen); White Blood Cells >100 SEEN /hpf (0-5)
[2023-07-28] MEDS: 0.9% Normal Saline (1000mL) 1,000 ML 1000 ML IV (12:21)
[2023-07-28] MEDS: Ondansetron 4 MG/2 ML Vial IV (12:21)
[2023-07-28 12:23] LABS: Absolute Lymphocyte Count 1.99 X10^3/uL (0.83-4.51); Absolute Neutrophil Count 3.8 X10^3/uL (2.0-7.7); Basophil# 0.06 X10^3/uL; Basophil% 0.9 % (0-1); Eosinophil# 0.19 X10^3/uL; Eosinophils% 2.9 % (0-5); Hemoglobin 12.8 g/dL (12.0-15.0); Lymphocyte # 1.99 X10^3/ul (0.83-4.51); Lymphocyte % 30.4 % (19-41); Mean Corpuscular Hgb 30.4 pg (27.0-32.0); Mean Platelet Vol. 9.4 fl (6.2-12.0); Monocyte% 7.6 % (0-10); NRBC Flagged by Analyzer 0 % (0-5); Neutrophil % 58.2 % (47-70); Platelet Count 382 K/mm3 (150-450); RBC Distribution Width SD 48.5 fl (35.1-43.9); Red Blood Count 4.21 M/mm3 (4.2-5.4); White Blood Count 6.5 K/mm3 (4.4-11.0)
[2023-07-28 12:42] LABS: Anion Gap 5 (5-15); BUN 6 mg/dL (7-18); Calcium,Total 8.2 mg/dL (8.5-10.1); Chloride 103 mmol/L (98-107); Creatinine, Serum 0.75 mg/dL (0.55-1.02); EST Glomerular Filtration Rate 80 mL/min (>60); Est Glom Filt Rate - Afr Amer 96 mL/min (>60); Glucose 97 mg/dL (74-106); Potassium 2.9 mmol/L (3.5-5.1); Sodium Level 139 mmol/L (136-145)
[2023-07-28] MEDS: Cephalexin 250 MG Capsule 500 MG PO (13:07)
[2023-07-28 13:54] VITALS: BP 138/77; PULSE 91; RESP 16; O2SAT 94
== END 2023-07-28 13:55 | disposition home or self-care (01) ==
PROVIDERS: Emergency Provider Emergency Medicine; PCP Internal Medicine; Visit Provider Emergency Medicine
DX: N30.00 Acute cystitis without hematuria (principal); M06.9 Rheumatoid arthritis, unspecified; I42.8 Other cardiomyopathies; E11.9 Type 2 diabetes mellitus without complications; R53.1 Weakness; E78.5 Hyperlipidemia, unspecified; I10 Essential (primary) hypertension; I25.10 Atherosclerotic heart disease of native coronary artery without angina pectoris; E87.6 Hypokalemia; E86.0 Dehydration; R05.9 Cough, unspecified; G47.33 Obstructive sleep apnea (adult) (pediatric); Z86.718 Personal history of other venous thrombosis and embolism; Z86.711 Personal history of pulmonary embolism
CPT/HCPCS: 71046; 80048; 81001; 85025; 87077; 87086; 87088; 87186; 87811; 96374; 99284; J7030; P9612; J2405

== ENCOUNTER → 2023-08-15 | Outpatient (CLI) | payer MEDICARE, OTHER, SELFPAY ==
[2023-08-15 17:43] LABS: Absolute Lymphocyte Count 1.65 X10^3/uL (0.83-4.51); Absolute Neutrophil Count 3.4 X10^3/uL (2.0-7.7); Basophil# 0.05 X10^3/uL; Basophil% 0.9 % (0-1); Eosinophil# 0.17 X10^3/uL; Eosinophils% 2.9 % (0-5); Hematocrit 39.5 % (37-47); Hemoglobin 12.2 g/dL (12.0-15.0); Lymphocyte # 1.65 X10^3/ul (0.83-4.51); Lymphocyte % 28.2 % (19-41); Mean Corp Hgb Conc 30.9 g/dL (32-36); Mean Corpuscular Volume 97.3 fL (81-99); Mean Platelet Vol. 10.3 fl (6.2-12.0); Monocyte# 0.52 X10^3/uL; Monocyte% 8.9 % (0-10); NRBC Flagged by Analyzer 0 % (0-5); Neutrophil # 3.44 X10^3/uL (2.7-7.7); Neutrophil % 58.8 % (47-70); Platelet Count 275 K/mm3 (150-450); RBC Distribution Width CV 14.6 % (11.6-14.6); RBC Distribution Width SD 52.9 fl (35.1-43.9); Red Blood Count 4.06 M/mm3 (4.2-5.4); White Blood Count 5.9 K/mm3 (4.4-11.0)
[2023-08-15 18:20] LABS: ALB/GLOB Ratio 0.7 RATIO (0.9-2.4); AST(SGOT) 16 U/L (15-37); Alanine Aminotransfer ALT/SGPT 13 U/L (13-56); Albumin, Serum 2.8 g/dL (3.2-5.0); Alkaline Phosphatase 80 U/L (45-117); Anion Gap 5 (5-15); BUN 8 mg/dL (7-18); BUN/Creat Ratio 10.5 RATIO (10-20); Calcium,Total 8.7 mg/dL (8.5-10.1); Chloride 100 mmol/L (98-107); Creatinine, Serum 0.76 mg/dL (0.55-1.02); EST Glomerular Filtration Rate 78 mL/min (>60); Est Glom Filt Rate - Afr Amer 94 mL/min (>60); Glucose 60 mg/dL (74-106); Potassium 3.2 mmol/L (3.5-5.1); Protein, Total 6.8 g/dL (6.4-8.2); Sodium Level 139 mmol/L (136-145)
== END | disposition home or self-care (01) ==
LOC: MTLAB 11:39
PROVIDERS: PCP Internal Medicine; Referring Provider Internal Medicine Rheumatology; Visit Provider Internal Medicine Rheumatology
DX: M06.4 Inflammatory polyarthropathy (principal); M79.7 Fibromyalgia; M65.352 Trigger finger, left little finger; M16.0 Bilateral primary osteoarthritis of hip; M19.041 Primary osteoarthritis, right hand; Z79.899 Other long term (current) drug therapy
CPT/HCPCS: 36415; 80053; 85025

== ENCOUNTER 2023-09-22 10:42 | Emergency (ER) | payer MEDICARE, OTHER, SELFPAY ==
[2023-09-22 10:43] VITALS: BP 116/86; PULSE 99; RESP 18; TEMP 39.4; O2SAT 98; BMI 18.8
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
[2023-09-22] MEDS: Acetaminophen 500 MG Tablet 1000 MG PO (11:14)
[2023-09-22 11:28] VITALS: TEMP 38.6
[2023-09-22 11:31] LABS: Absolute Lymphocyte Count 0.75 X10^3/uL (0.83-4.51); Absolute Neutrophil Count 2.3 X10^3/uL (2.0-7.7); Basophil# 0.02 X10^3/uL; Basophil% 0.6 % (0-1); Eosinophil# 0.05 X10^3/uL; Eosinophils% 1.5 % (0-5); Hematocrit 33.4 % (37-47); Hemoglobin 10.9 g/dL (12.0-15.0); Lymphocyte # 0.75 X10^3/ul (0.83-4.51); Lymphocyte % 22.9 % (19-41); Mean Corp Hgb Conc 32.6 g/dL (32-36); Mean Corpuscular Hgb 31.6 pg (27.0-32.0); Mean Corpuscular Volume 96.8 fL (81-99); Mean Platelet Vol. 9.6 fl (6.2-12.0); Monocyte# 0.17 X10^3/uL; Monocyte% 5.2 % (0-10); NRBC Flagged by Analyzer 0 % (0-5); Neutrophil # 2.27 X10^3/uL (2.7-7.7); Neutrophil % 69.2 % (47-70); Platelet Count 303 K/mm3 (150-450); RBC Distribution Width CV 14.6 % (11.6-14.6); Red Blood Count 3.45 M/mm3 (4.2-5.4); White Blood Count 3.3 K/mm3 (4.4-11.0)
--- NOTE | 2023-09-22 11:35 | RAD_ITS ---
INDICATION: Fever EXAMINATION/TECHNIQUE: X-RAY - XR Chest 2 Views COMPARISON: Prior study dated: 07/28/2023. FINDINGS: LINES/DEVICES: None. LUNGS: No consolidation, edema or effusion. No pneumothorax. MEDIASTINUM AND CARDIOVASCULAR STRUCTURES: Borderline cardiac silhouette. Tortuosity of the thoracic aorta. BONES AND SOFT TISSUES: Degenerative changes worse in the lower thoracic spine. Partially visualized fusion of the upper lumbar spine with pedicle screws. RAD/Chest PA and Lateral IMPRESSION: No radiographic evidence of acute cardiopulmonary disease. Electronically Signed: Rolly Aviles MD at 11:46 EST ,
[2023-09-22 11:41] LABS: Anion Gap 7 (5-15); BUN 8 mg/dL (7-18); BUN/Creat Ratio 12.5 RATIO (10-20); Chloride 97 mmol/L (98-107); Creatinine, Serum 0.64 mg/dL (0.55-1.02); EST Glomerular Filtration Rate 95 mL/min (>60); Est Glom Filt Rate - Afr Amer 115 mL/min (>60); Estimated Creatinine Clearance 42.69 ml/min; Glucose 112 mg/dL (74-106); Potassium 3.3 mmol/L (3.5-5.1); Sodium Level 137 mmol/L (136-145)
[2023-09-22 11:46] VITALS: BP 177/64; PULSE 97; RESP 16; TEMP 37.1; O2SAT 98
[2023-09-22 12:50] LABS: Mucous, Urine 0 SEEN /hpf (<or=2+); Red Blood Cells-Urine 0 SEEN /hpf (0-5)
[2023-09-22 12:52] LABS: Color, Urine Yellow (Yellow); Glucose, Dipstick Normal (Normal); Ketone-Dipstick Negative (Negative); Leukocyte Esterase-Dipstick 500 /ul (Negative); Nitrite-Dipstick Positive (Negative); Occult Blood-Urine 25 /ul (Negative); Protein-Dipstick 30 mg/dl (Negative); Urine Bilirubin Dipstick Negative (Negative); Urine Clarity Cloudy (Clear); Urine Urobilinogen Normal (Normal)
[2023-09-22 13:03] LABS: Bacteria 2+ /hpf (None Seen); Squamous Epithelial Cells - UA 0-5 SEEN /hpf (5-10); White Blood Cells >100 SEEN /hpf (0-5)
[2023-09-22 13:05] VITALS: BP 142/78; PULSE 64; RESP 16; TEMP 37.2; O2SAT 100
[2023-09-22] MEDS: Cephalexin 500 MG Capsule PO (13:18)
== END 2023-09-22 13:23 | disposition home or self-care (01) ==
PROVIDERS: Emergency Provider Emergency Medicine; PCP Internal Medicine; Visit Provider Emergency Medicine
DX: N39.0 Urinary tract infection, site not specified (principal); R50.9 Fever, unspecified; G47.33 Obstructive sleep apnea (adult) (pediatric); Z86.718 Personal history of other venous thrombosis and embolism
CPT/HCPCS: 71046; 80048; 81001; 85025; 87077; 87086; 87088; 87186; 87631; 87651; 99285; A4216

== ENCOUNTER → 2023-11-03 | Outpatient (CLI) | payer MEDICARE, OTHER, SELFPAY ==
[2023-11-03 12:24] LABS: Absolute Lymphocyte Count 2.19 X10^3/uL (0.83-4.51); Basophil# 0.07 X10^3/uL; Eosinophil# 0.14 X10^3/uL; Eosinophils% 2.1 % (0-5); Hematocrit 38.1 % (37-47); Hemoglobin 12.1 g/dL (12.0-15.0); Lymphocyte # 2.19 X10^3/ul (0.83-4.51); Lymphocyte % 32.8 % (19-41); Mean Corp Hgb Conc 31.8 g/dL (32-36); Mean Corpuscular Hgb 31.5 pg (27.0-32.0); Mean Corpuscular Volume 99.2 fL (81-99); Monocyte# 0.25 X10^3/uL; Monocyte% 3.7 % (0-10); NRBC Flagged by Analyzer 0 % (0-5); Neutrophil # 4.01 X10^3/uL (2.7-7.7); Neutrophil % 60.1 % (47-70); Platelet Count 295 K/mm3 (150-450); RBC Distribution Width SD 58.4 fl (35.1-43.9); Red Blood Count 3.84 M/mm3 (4.2-5.4); White Blood Count 6.7 K/mm3 (4.4-11.0)
[2023-11-03 12:48] LABS: ALB/GLOB Ratio 0.9 RATIO (0.9-2.4); AST(SGOT) 16 U/L (15-37); Alanine Aminotransfer ALT/SGPT 13 U/L (13-56); Albumin, Serum 3.3 g/dL (3.2-5.0); Alkaline Phosphatase 62 U/L (45-117); Anion Gap 7 (5-15); BUN 10 mg/dL (7-18); BUN/Creat Ratio 14.6 RATIO (10-20); Calcium,Total 8.3 mg/dL (8.5-10.1); Chloride 101 mmol/L (98-107); Creatinine, Serum 0.69 mg/dL (0.55-1.02); EST Glomerular Filtration Rate 88 mL/min (>60); Est Glom Filt Rate - Afr Amer 106 mL/min (>60); Globulin 3.8 g/dL (2.2-4.2); Glucose 96 mg/dL (74-106); Protein, Total 7.1 g/dL (6.4-8.2); Sodium Level 138 mmol/L (136-145)
== END | disposition home or self-care (01) ==
PROVIDERS: PCP Internal Medicine; Referring Provider Internal Medicine Rheumatology; Visit Provider Internal Medicine Rheumatology
DX: M06.4 Inflammatory polyarthropathy (principal); M79.7 Fibromyalgia; M65.352 Trigger finger, left little finger; M16.0 Bilateral primary osteoarthritis of hip; M19.041 Primary osteoarthritis, right hand; Z79.899 Other long term (current) drug therapy
CPT/HCPCS: 36415; 80053; 85025

== ENCOUNTER → 2023-11-17 | Outpatient (CLI) | payer MEDICARE, OTHER, SELFPAY ==
[2023-11-17 11:04] LABS: Absolute Lymphocyte Count 2.24 X10^3/uL (0.83-4.51); Absolute Neutrophil Count 4.6 X10^3/uL (2.0-7.7); Basophil# 0.05 X10^3/uL; Basophil% 0.6 % (0-1); Eosinophil# 0.27 X10^3/uL; Eosinophils% 3.5 % (0-5); Hematocrit 35.2 % (37-47); Hemoglobin 11.4 g/dL (12.0-15.0); Lymphocyte # 2.24 X10^3/ul (0.83-4.51); Lymphocyte % 29.1 % (19-41); Mean Corp Hgb Conc 32.4 g/dL (32-36); Mean Corpuscular Hgb 31.8 pg (27.0-32.0); Mean Corpuscular Volume 98.3 fL (81-99); Mean Platelet Vol. 9.5 fl (6.2-12.0); Monocyte# 0.48 X10^3/uL; Monocyte% 6.2 % (0-10); NRBC Flagged by Analyzer 0 % (0-5); Neutrophil # 4.64 X10^3/uL (2.7-7.7); Neutrophil % 60.3 % (47-70); Platelet Count 298 K/mm3 (150-450); RBC Distribution Width CV 15.8 % (11.6-14.6); RBC Distribution Width SD 55.8 fl (35.1-43.9); Red Blood Count 3.58 M/mm3 (4.2-5.4); White Blood Count 7.7 K/mm3 (4.4-11.0)
[2023-11-17 11:37] LABS: BNP,B-Type NATRIURETIC PEPTIDE 132.6 pg/mL (0-100)
[2023-11-17 11:46] LABS: Anion Gap 7 (5-15); BUN 14 mg/dL (7-18); BUN/Creat Ratio 20.5 RATIO (10-20); Calcium,Total 8.4 mg/dL (8.5-10.1); Chloride 102 mmol/L (98-107); Creatinine, Serum 0.68 mg/dL (0.55-1.02); EST Glomerular Filtration Rate 88 mL/min (>60); Est Glom Filt Rate - Afr Amer 107 mL/min (>60); Glucose 147 mg/dL (74-106); Potassium 3.3 mmol/L (3.5-5.1); Sodium Level 139 mmol/L (136-145); Thyroid Stim Hormone (TSH) 5.08 uIU/mL (0.358-3.74)
== END | disposition home or self-care (01) ==
PROVIDERS: PCP Internal Medicine; Referring Provider Nurse Practitioner Gerontology; Visit Provider Nurse Practitioner Gerontology
DX: I42.8 Other cardiomyopathies (principal); R06.09 Other forms of dyspnea
CPT/HCPCS: 36415; 80048; 83880; 84443; 85025

== ENCOUNTER → 2023-11-24 | Outpatient (CLI) | payer MEDICARE, OTHER, SELFPAY ==
[2023-11-24 13:14] LABS: Anion Gap 6 (5-15); BUN 18 mg/dL (7-18); BUN/Creat Ratio 24.9 RATIO (10-20); Chloride 101 mmol/L (98-107); Creatinine, Serum 0.72 mg/dL (0.55-1.02); EST Glomerular Filtration Rate 82 mL/min (>60); Est Glom Filt Rate - Afr Amer 100 mL/min (>60); Glucose 160 mg/dL (74-106); Potassium 3.5 mmol/L (3.5-5.1); Sodium Level 139 mmol/L (136-145)
== END | disposition home or self-care (01) ==
LOC: LAB 12:21
PROVIDERS: PCP Internal Medicine; Referring Provider Nurse Practitioner Gerontology; Visit Provider Nurse Practitioner Gerontology
DX: E87.6 Hypokalemia (principal)
CPT/HCPCS: 36415; 80048

== ENCOUNTER → 2023-12-20 | Outpatient (CLI) | payer MEDICARE, OTHER, SELFPAY ==
--- NOTE | 2023-12-20 06:50 | ECHOD_ITS ---
Reason For Study: DYSPNEA ON EXERTION, CMP Procedure This was a 2D Doppler, Color Flow transthoracic echocardiogram. The study was technically difficult. Due to respiratory interference. Exam performed in department. Left Ventricle Normal left ventricle. Mild segmental systolic dysfunction (see wall motion). The estimated ejection fraction is 54 %. Stage 1 diastolic dysfunction. Mid-Inferior: Hypokinetic. Infero-Basal: Severely Hypokinetic. Inferior [place] : Mildly hypokinetic. Septal [place] : Akinetic. The rest of the wall segments are normal. Right Ventricle Normal RV size. Normal systolic function. Atria Normal left atrium. Normal right atrium. Mitral Valve Normal mitral valve. Tricuspid Valve Normal tricuspid valve. Mild (1+) tricuspid valve insufficiency. Aortic Valve Trisinus/trileaflet aortic valve. Mild (1+) aortic valve insufficiency. Pulmonic Valve Normal pulmonic valve. Great Vessels Mildly dilated aortic root. The pulmonary artery is normal size. Inferior vena cava collapse with respiration. Pericardium/Pleural No pericardial effusion. MMode/2D Measurements & Calculations LVIDd: 4.5 cm IVSd: 1.1 cm Ao root diam: 4.0 cm LVIDs: 3.0 cm LVPWd: 1.1 cm LA dimension: 3.8 cm FS: 34.2 % LAV(MOD-bp): 41.9 ml LVAd ap4: 27.2 cm2 LVAd ap2: 24.7 cm2 LAV(MOD-bp) Indexed: 27.9 ml/m2 LVLd ap4: 7.6 cm LVLd ap2: 8.0 cm LAV(MOD-sp2): 48.1 ml EDV(MOD-sp4): 80.3 ml EDV(MOD-sp2): 66.3 ml LAV(MOD-sp4): 38.1 ml EDV(sp4-el): 82.4 ml EDV(sp2-el): 65.0 ml LVAs ap4: 17.5 cm2 LVAs ap2: 15.4 cm2 LVLs ap4: 6.6 cm LVLs ap2: 6.8 cm ESV(MOD-sp4): 39.7 ml ESV(MOD-sp2): 30.8 ml ESV(sp4-el): 39.7 ml ESV(sp2-el): 29.7 ml EF(MOD-sp4): 50.5 % EF(MOD-sp2): 53.6 % EF(sp4-el): 51.8 % SV(MOD-sp4): 40.5 ml SV(MOD-sp2): 35.5 ml SV(sp4-el): 42.6 ml TAPSE: 1.5 cm LA A4 area: 15.4 cm2 Time Measurements MV dec time: 0.25 sec Doppler Measurements & Calculations MV E max stuart: 43.5 cm/sec Lat Peak E' Stuart: 4.7 cm/sec Med Peak E' Stuart: 6.4 cm/sec MV A max stuart: 90.0 cm/sec E/E' lat: 9.2 E/E' med: 6.8 MV E/A: 0.48 Ao V2 max: 136.0 cm/sec AI max stuart: 425.5 cm/sec LV V1 max: 96.0 cm/sec Ao max P.4 mmHg AI max P.4 mmHg LV V1 max P.7 mmHg Ao V2 mean: 91.4 cm/sec AI dec slope: 282.2 cm/sec2 LV V1 mean P.8 mmHg Ao mean P.6 mmHg AI P1/2t: 441.7 msec LV V1 mean: 63.9 cm/sec Ao V2 VTI: 26.2 cm LV V1 VTI: 18.6 cm AV (velocity ratio): 0.71 PA V2 max: 101.8 cm/sec TR max stuart: 238.7 cm/sec PA V2 mean: 69.4 cm/sec TR max P.8 mmHg ECHO/Echo Complete Interpretation Summary Normal left ventricle. Mild segmental systolic dysfunction (see wall motion). The estimated ejection fraction is 54 %. Mildly dilated aortic root. Stage 1 diastolic dysfunction. Mild (1+) aortic valve insufficiency. Ordering Physician: Allyn Manley Referring Physician: Margarita Drake Performed By: Patricia Pickett, RDCS, RVT
--- NOTE | 2023-12-20 18:33 | STRESSREP ---
Stress Test Report Pharmacologic myocardial perfusion stress test. 78-year-old lady with a history of dyspnea and fatigue Resting EKG demonstrates normal sinus rhythm with a rate of 65 bpm. Resting blood pressure is 112/62 mmHg. 0.4 mg of regadenoson was infused per usual protocol followed by rapid intravenous saline flush injection. Continuous EKG monitoring was performed. The maximum heart rate was 144 bpm which was 102% of max impacted heart rate the maximum workload was 1 metabolic equivalent. At rest there were no ST or T wave changes noted to suggest ischemia and at peak infusion nonspecific ST changes were noted which did not meet the criteria for ischemia. No clinical angina is noted. Patient however had significant nausea vomiting during the test. The final blood pressure was 120/70 mmHg. Myocardial perfusion protocol. 11.3 mCi of technetium 99m sestamibi was injected at rest. 0.4 mg of regadenoson was infused per usual protocol. At peak infusion 33.9 mCi of technetium 99m sestamibi was injected stress images were obtained stress and rest images were reconstructed and compared in the short axis vertical long and horizontal long axis. Gated images were also obtained. Perfusion SPECT analysis: Review of the stress images demonstrate normal uptake of tracer noted in all areas of the myocardium. There is however a small area in the mid to distal anterior septal wall and septal apex with reduced perfusion. The resting images similar demonstrated normal uptake of tracer noted in all areas of the myocardium. The above is suggestive of a moderate amount of mid to distal anteroseptal ischemia present. Gated SPECT analysis: The gated ejection fraction is 62%. Conclusion: Abnormal pharmacologic myocardial perfusion stress test. Preserved ejection fraction. Mid to distal anteroseptal to apical ischemia present.
== END | disposition home or self-care (01) ==
LOC: CVS 06:49
PROVIDERS: PCP Internal Medicine; Referring Provider Nurse Practitioner Gerontology; Visit Provider Nurse Practitioner Gerontology
DX: R06.09 Other forms of dyspnea (principal); I42.8 Other cardiomyopathies; R53.83 Other fatigue; I25.10 Atherosclerotic heart disease of native coronary artery without angina pectoris
CPT/HCPCS: 78452; 93017; 93306; A9500; A4216; J2785

== ENCOUNTER → 2023-12-22 | Outpatient (CLI) | payer MEDICARE, OTHER, SELFPAY ==
[2023-12-22 16:02] LABS: Bacteria 0 SEEN /hpf (None Seen); Mucous, Urine 0 SEEN /hpf (<or=2+); Red Blood Cells-Urine 0 SEEN /hpf (0-5); Squamous Epithelial Cells - UA 0 SEEN /hpf (5-10)
[2023-12-22 16:13] LABS: Color, Urine Yellow (Yellow); Glucose, Dipstick Normal (Normal); Ketone-Dipstick 5 mg/dl (Negative); Leukocyte Esterase-Dipstick 500 /ul (Negative); Nitrite-Dipstick Positive (Negative); Occult Blood-Urine 150 /ul (Negative); Protein-Dipstick 100 mg/dl (Negative); Specific Gravity, Urine 1.015 (1.002-1.030); Urine Bilirubin Dipstick Negative (Negative); Urine Clarity Cloudy (Clear); Urine Urobilinogen Normal (Normal)
[2023-12-22 16:40] LABS: White Blood Cells >100 SEEN /hpf (0-5)
== END | disposition home or self-care (01) ==
LOC: LABSPEC 15:37
PROVIDERS: PCP Internal Medicine; Referring Provider Physician Assistant Surgical; Visit Provider Physician Assistant Surgical
DX: R30.0 Dysuria (principal)
CPT/HCPCS: 81001; 87077; 87086; 87088; 87186

== ENCOUNTER 2024-01-05 14:33 | Observation (INO) | payer MEDICARE, OTHER, SELFPAY ==
[2023-12-22 12:56] LABS: Absolute Lymphocyte Count 1.81 X10^3/uL (0.83-4.51); Absolute Neutrophil Count 6.9 X10^3/uL (2.0-7.7); Basophil# 0.04 X10^3/uL; Basophil% 0.4 % (0-1); Eosinophil# 0.52 X10^3/uL; Eosinophils% 5.3 % (0-5); Hematocrit 38.4 % (37-47); Lymphocyte # 1.81 X10^3/ul (0.83-4.51); Lymphocyte % 18.4 % (19-41); Mean Corp Hgb Conc 31.3 g/dL (32-36); Mean Corpuscular Volume 102.4 fL (81-99); Mean Platelet Vol. 9.5 fl (6.2-12.0); Monocyte% 6.1 % (0-10); NRBC Flagged by Analyzer 0 % (0-5); Neutrophil # 6.85 X10^3/uL (2.7-7.7); Neutrophil % 69.5 % (47-70); Platelet Count 337 K/mm3 (150-450); RBC Distribution Width CV 14.4 % (11.6-14.6); RBC Distribution Width SD 54.3 fl (35.1-43.9); Red Blood Count 3.75 M/mm3 (4.2-5.4); White Blood Count 9.9 K/mm3 (4.4-11.0)
[2023-12-22 13:04] LABS: Partial Thromboplast Time 25.6 Seconds (24.1-36.2); Prothrombin Time (Protime)PT. 13.1 SECONDS (11.7-14.9)
[2023-12-22 13:36] LABS: Anion Gap 5 (5-15); BUN 16 mg/dL (7-18); Calcium,Total 9.2 mg/dL (8.5-10.1); Chloride 102 mmol/L (98-107); Creatinine, Serum 0.84 mg/dL (0.55-1.02); EST Glomerular Filtration Rate 69 mL/min (>60); Est Glom Filt Rate - Afr Amer 84 mL/min (>60); Glucose 98 mg/dL (74-106); Potassium 3.9 mmol/L (3.5-5.1); Sodium Level 137 mmol/L (136-145)
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
[2024-01-04 11:34] VITALS: BMI 19.5
--- NOTE | 2024-01-05 11:32 | CL.D_ITS ---
Patient Name: BEN MAHARAJ Study Date: 01/05/2024 Performing: Sergio Maya MD Ht: 636 inches 1615.44 cm : 1945 Wt: 110.01 lbs 49.9 kg Age: 78 Gender: female BSA: 8.02 PROCEDURE(S) PERFORMED DC01-(36598)LHC/COR/LV CLINICAL PROFILE AND INDICATIONS Indications: Suspected CAD Heart Failure: None Stress/Imaging Date: 12/20/23Stress Test with SPECT MPI: Positive Intermediate Risk CAD Presentations: Stable angina. CONCLUSIONS High-grade eccentric mid left anterior descending artery stenosis and preserved ejection fraction with a dilated aortic root. RECOMMENDATIONS Referred for immediate PCI DESCRIPTION OF PROCEDURE The patient arrived to the procedure lab. The risks and benefits of the procedure as well as a full description of our services here and current unavailability of surgical backup were fully explained to the patient and/or their significant other prior to the catheterization. The Timeout was completed, verifying the correct patient and procedure. The patient's procedural site was prepped and draped in the usual fashion. Local anesthetic was given subcutaneously to right radial region with Lidocaine 2%. Using a modified Seldinger technique, arterial access was obtained via the right radial artery, a 6Fr sheath was inserted. Right Coronary Artery selective angiography was then performed in multiple views using a 5 Fr. JR 5 catheter. Left Ventriculography was performed in GUERRA projection using a 5 Fr. Pigtail catheter. LV to AO pullback pressures were then recorded. CORONARY ANGIOGRAPHY DOMINANCE: Right Dominant LEFT HEART ASSESSMENT Left Ventricular Ejection Fraction: by LV Gram 60 % Normal LV wall motion Normal Left Ventricular systolic function LEFT MAIN: Angiographically normal LEFT ANTERIOR DESCENDING ARTERY: Large vessel with mid segment demonstrating eccentric 80% mildly calcified stenosis. First diagonal branch has no significant stenosis. CIRCUMFLEX ARTERY: Mild luminal irregularities RIGHT CORONARY ARTERY: Mild luminal irregularities less than 30% VALVE FINDINGS: Normal Aortic Valve function AORTIC ROOT: Dilated COMPLICATIONS PROCEDURE MEDICATIONS Fentanyl 25 mcg IV Versed 1 mg IV Oxygen: 2 L/min via nasal cannula Brilinta 180 mg PO @ 01/05/2024 11:27:26 Heparin given IA 01/05/2024 11:04:26 Verapamil 2.5mg, Ntg 100mcgs, 3000 units of Heparin given IA 01/05/2024 11:04:26 SUMMARY OF HEMODYNAMIC DATA Time AIR REST ECG 09:27:20 AO 132/66 (92) SA 11:09:46 LV 152/7, 25 11:22:34 LV 130/7, 11 11:22:40 LV 151/7, 26 11:23:29 LVp 155/3, 22 11:23:36 AOp 168/75 (113) 11:23:41 Signed By Sergio Maya MD On 01/05/2024 11:32:04 Sergio Maya MD
[2024-01-05 14:09] VITALS: BP 130/85; PULSE 72; RESP 16; TEMP 37.1; O2SAT 98
--- NOTE | 2024-01-05 14:18 | CL.I_ITS ---
Patient Name: BEN MAHARAJ Study Date: 01/05/2024 Performing: Natalia Reid MD Ht: 636 inches 1615.44 cm : 1945 Wt: 110.01 lbs 49.9 kg Age: 78 Gender: female BSA: 8.02 PROCEDURE(S) PERFORMED IC12-(63797/C9600)ELVIA W/WO PTCA, SINGLE CORONARY ARTERY CLINICAL PROFILE AND CO-MORBIDITIES Indications: Suspected CAD Heart Failure: None Stress/Imaging Date: 12/20/23 Stress Test with SPECT MPI: Positive Intermediate Risk CAD Presentations: Stable angina. CONCLUSIONS Successful ELVIA to mLAD RECOMMENDATIONS DESCRIPTION OF PROCEDURE The patient arrived to the procedure lab. The risks and benefits of the procedure as well as a full description of our services here and current unavailability of surgical backup were fully explained to the patient and/or their significant other prior to the catheterization. The Timeout was completed, verifying the correct patient and procedure. The patient's procedural site was prepped and draped in the usual fashion. Local anesthetic was given subcutaneously to right radial region with Lidocaine 2% Using a modified Seldinger technique,arterial access was obtained via the right radial artery, a 6Fr sheath was inserted. Right Coronary Artery selective angiography was then performed in multiple views using a 5 Fr. JR 5 catheter. Left Ventriculography was performed in GUERRA projection using a 5 Fr. Pigtail catheter. LV to AO pullback pressures were then recorded.The images were reviewed and options discussed. A decision was then made to proceed with an Intervention, IVUS or other adjunct procedure. XB 3.0 Guide catheter was inserted and engaged into the LCA. XB 3.5 Guide catheter was inserted and engaged into the LCA. [employer] [place] Guide wire was advanced to the LAD. Emerge 3.0 x 20 Balloon catheter was inserted. Balloon catheter was advanced across lesion in the LAD, mid. PTCA balloon inflated at 6 atms for 9 secs. Angiogram performed post balloon dilatation. PTCA balloon inflated at 6 atms for 11 secs. [place] Atalissa 3.5 x 34 Drug Eluting stent was inserted. Drug Eluting stent was advanced across the lesion in the LAD, mid. [place] Emerge 3.5 x 20 Balloon catheter was inserted. Balloon catheter was advanced across lesion in the LAD, mid. The arterial sheath was pulled and a TR Band was applied for hemostasis INTERVENTION INFORMATION LESION SITE: LAD (Mid) Lesion Complexity: High/C, chronic total occlusion: No, lesion at bifurcation: No, thrombus present: No, lesion length: 30 mm, culprit lesion: Yes, Previously treated lesion: No Pre Stenosis: 80 % Pre intervention GENNA flow: 3 PROCEDURE: Drug Eluting Stent with pre and post dilatation Post Stenosis: 0 % Post intervention GENNA flow: 3 Lesion Devices: Terumo .014 180cm Runthrough Extra Floppy straight Cordis 6 Fr XB3.5 100cm Guide Catheter Jarrod Sci EMERGE MR 3.00x20 BALLOON Medtronic 3.5 x 34 JUSTIN FRONTIER ELVIA Jarrod Sci NC EMERGE MR 3.50x20 BALLOON COMPLICATIONS No Complications PROCEDURE MEDICATIONS Fentanyl 25 mcg IV Versed 1 mg IV Oxygen: 2 L/min via nasal cannula Brilinta 180 mg PO @ 01/05/2024 11:27:26 Heparin given IA 01/05/2024 11:04:26 Heparin 1000 unit(s) IV 01/05/2024 11:32:47 Verapamil 2.5mg, Ntg 100mcgs, 3000 units of Heparin given IA 01/05/2024 11:04:26 SUMMARY OF HEMODYNAMIC DATA Time AIR REST ECG 09:27:20 AO 132/66 (92) SA 11:09:46 LV 152/7, 25 11:22:34 LV 130/7, 11 11:22:40 LV 151/7, 26 11:23:29 LVp 155/3, 22 11:23:36 AOp 168/75 (113) 11:23:41 AIR REST 12:14:39 Signed By Natalia Reid MD On 01/05/2024 14:17:46 Natalia Reid MD
[2024-01-05 16:06] VITALS: BMI 18.7
--- NOTE | 2024-01-05 16:33 | CRPHASE1_ITS ---
Patient Communication Patient Information Former Patient:: Phase I PHII Cardiac Rehab Discussed with Patient:: Yes Guide to Cardiac Rehab Given to Patient:: Yes Cardiac Rehab Facility Choice List Given to Patient:: Yes Communication to Cardiac Rehab Choice Program [facility] CR PHII:: Communication Given to CR and Refer to [facility] Electron Beam Photo Mask Maker:: Enma Reid Refer Phase II Cardiac Rehab:: Yes Post Discharge Phase I Charge:: Level I - Education Medical/Surgical History Medical History CAD:: Yes Congestive Heart Failure: Valve Disease/Replacement:: Yes Pulmonary:: Yes Diabetes:: Yes Hypertension:: Yes Dyslipidemia:: Yes CVA/TIA: GI:: Yes GERD:: Yes Surgical History PTCA:: Yes Cardiac Rehabilitation Info Program Information Cardiac Rehabilitation Program Information: Cardiac Rehab The cardiac rehab team at [facility] consists of highly skilled exercise physiologists, nurses, respiratory therapists and physicians working together with you. Our purpose is to help you have a full recovery and achieve the goals you set for yourself. Over the years many of our patients have returned to activities they assumed they would never do again! We can help restore your confidence and motivation to make lifestyle changes that can have a significant impact on your health and quality of life! We can help answer questions and concerns you may have about exercise, lifestyle, medications, diet, stress and anxiety which are common following a hospitalization. WE monitor ECG and vital signs during exercise and discuss your progress with you and report to your physician(s). Cardiac Rehab is proven to help reduce readmissions, improve functional capacity and lower recurrence of problems with your heart. Our Cardiac Rehab program is Certified by the [place] [employer] Pulmonary [employer] (AACVPR) and Accredited by the [place] [employer] through our [facility]. You can contact us at . We invite you to call us with your questions or to get started in our program. If you have other questions or concerns be sure to ask your physician/provider during your follow-up visit. WE look forward to seeing you!
--- NOTE | 2024-01-05 16:35 | CRPH1.INSTRU ---
General Education Discussed with Patient CAD and cardiac anatomy and function:: Patient communicates acknowledgment Explanation of diagnoses and procedures:: Patient communicates acknowledgment Sign/Symptoms of MN:: Patient communicates acknowledgment Antiplatelet therapy: Patient communicates acknowledgment Proper use of NTG-SL: Patient communicates acknowledgment Emergency procedures and activation of EMS: Patient communicates acknowledgment Compliance of all prescribed medications: Patient communicates acknowledgment Smoking Risk Factors Patient Nicotine/Smoking Risk Factors Are:: Never smoked Response Code Nicotine/Smoking Response Code:: Patient communicates acknowledgment Dyslipidemia Risk Factors Patient Dyslipidemia Risk Factors Are:: Total Cholesterol, Triglycerides, HDL and LDL Recommendations Recommendations Include:: Therapeutic Lifestyle Change dietary guidelines Response Code Dyslipidemia Response Code:: Patient communicates acknowledgment Overweight/Obesity Risk Factors Patient Overweight/Obesity Risk Factors Are:: BMI Normal [18-25 & < 65 years old] Response Code Overweight/Obesity:: Patient communicates acknowledgment Hypertension Recommendations Recommendations Include:: Maintain BP <130/85 Response Code Hypertension:: Patient communicates acknowledgment Heart Disease Risk Factors Patient Heart Disease Risk Factors Are:: Family history of heart disease < 65 years old and Previous cardiac event Recommendations Recommendations Include:: Educated family members of their risk Response Code Heart Disease Response Code:: Patient communicates acknowledgment Diabetes Recommendations Recommendations Include:: Maintain fasting blood sugars 70-110 md/dL and Maintain HgbA1c of 6% or less Response Code Diabetes:: Patient communicates acknowledgment Metabolic Syndrome Risk Factors Patient Metabolic Syndrome Risk Factors Are [3 of 5]:: Fasting blood sugar > 100 mg/dL and Waist circumference > 35 [female] or 40 [male] Recommendations Recommendations Include:: Patient is diabetic and Encouraged follow-up with Primary Care Physician Response Code Metabolic Syndrome Response Code:: Patient communicates acknowledgment Sedentary Recommendations Recommendations Include:: Benefits of regular exercise Response Code Sedentary Response Code:: Patient communicates acknowledgment Stress Risk Factors Patient Stress Risk Factors Are:: Patient denies stress as a risk factor Response Code Stress Response Code:: Patient communicates acknowledgment
[2024-01-05] MEDS: metFORMIN (XR) 500 MG Tablet PO (17:12)
[2024-01-05] MEDS: Sodium Chloride 0.65% 1 SPRAY SPRAY.BTL NASAL (18:12)
--- NOTE | 2024-01-05 22:06 | PN.HOSP_ITS ---
Hospitalist Note Patient with 13 beat asymptomatic VT. Will obtain BMP and mag with supplementation of electrolytes if needed. From medication review patient on co reg.
[2024-01-05 22:08] VITALS: BP 154/80; PULSE 67; RESP 16; TEMP 37.1; O2SAT 98
[2024-01-05] MEDS: MELATONIN 3 MG TABLET PO (22:28)
[2024-01-05] MEDS: Carvedilol 3.125 MG TABLET PO (22:28)
[2024-01-05] MEDS: DULoxetine Hcl 30 MG Capsule PO (22:28)
[2024-01-05] MEDS: TICAGRELOR 90 MG TABLET PO (22:28)
[2024-01-05] MEDS: Pantoprazole Sodium 40 MG Tablet PO (22:28)
[2024-01-05] MEDS: Gabapentin 800 MG Tablet PO (22:28)
[2024-01-05] MEDS: 0.9% Saline Lock 10 ML Syringe IV (22:33)
[2024-01-06 00:32] LABS: Anion Gap 7 (5-15); BUN 9 mg/dL (7-18); BUN/Creat Ratio 14.8 RATIO (10-20); Calcium,Total 8.5 mg/dL (8.5-10.1); Chloride 103 mmol/L (98-107); Creatinine, Serum 0.61 mg/dL (0.55-1.02); EST Glomerular Filtration Rate 100 mL/min (>60); Est Glom Filt Rate - Afr Amer 121 mL/min (>60); Glucose 110 mg/dL (74-106); Magnesium 1.6 mg/dL (1.6-2.6); Potassium 4.1 mmol/L (3.5-5.1); Sodium Level 139 mmol/L (136-145)
[2024-01-06 03:21] VITALS: BP 120/67; PULSE 65; RESP 16; TEMP 36.7; O2SAT 97
[2024-01-06 03:55] VITALS: BMI 19.4
[2024-01-06] MEDS: Gabapentin 800 MG Tablet PO (05:53)
[2024-01-06 08:54] VITALS: BP 104/66; PULSE 80; RESP 16; TEMP 36.6; O2SAT 95
[2024-01-06] MEDS: Aspirin E.C. 81 MG Tablet PO (09:06)
[2024-01-06] MEDS: Folic Acid 1 MG Tablet 2 MG PO (09:06)
[2024-01-06] MEDS: Spironolactone 25 MG Tablet PO (09:07)
[2024-01-06] MEDS: metFORMIN (XR) 500 MG Tablet PO (09:07)
[2024-01-06] MEDS: Carvedilol 3.125 MG TABLET PO (09:07)
[2024-01-06] MEDS: Potassium Chloride Oral Tablet 20 MEQ 40 MEQ PO (09:07)
[2024-01-06] MEDS: TICAGRELOR 90 MG TABLET PO (09:07)
[2024-01-06] MEDS: Pantoprazole Sodium 40 MG Tablet PO (09:08)
[2024-01-06] MEDS: Lisinopril 20 MG Tablet PO (09:08)
[2024-01-06] MEDS: amLODIPine 10 MG Tablet PO (09:08)
[2024-01-06] MEDS: Cholecalciferol (VIT D3) 25 MCG TABLET (1,000 UNITS) PO (09:08)
--- NOTE | 2024-01-06 09:56 | PCM.PN.CARD ---
Subjective Subjective Pt seen and evaluated Objective Data Vital Signs: Vital Signs Temp Pulse Resp BP Pulse Ox O2 Del Method 97.9 F 80 16 104/66 95 Room Air 01/06/24 08:54 01/06/24 08:54 01/06/24 08:54 01/06/24 08:54 01/06/24 08:54 01/06/24 08:57 Oxygen Delivery Method Room Air Weight: 113 lb 5.082 oz Body Mass Index (BMI) 19.4 Intake & Output: Intake and Output for Last 24 Hours 01/04/24 01/05/24 01/06/24 23:59 23:59 23:59 Output Total 700 / 700 400 / 400 Balance -700 / -700 -400 / -400 Lab / Micro Data 12/22/23 12:30 01/05/24 00:00 Labs: Laboratory Results - last 24 hr 01/05/24 00:00: Sodium 139, Potassium 4.1, Chloride 103, Carbon Dioxide 29.0, Anion Gap 7, BUN 9, Creatinine 0.61, Estim Creat Clear Calc 43.90, Est GFR (MDRD) Af Amer 121, Est GFR (MDRD) Non-Af 100, BUN/Creatinine Ratio 14.8, Glucose 110 H, Calcium 8.5, Magnesium 1.6 Cardiology Labs/Tests 01/05/24 00:00: Sodium 139, Potassium 4.1, Chloride 103, Carbon Dioxide 29.0, Anion Gap 7, BUN 9, Creatinine 0.61, Est GFR (MDRD) Af Amer 121, Est GFR (MDRD) Non-Af 100, BUN/Creatinine Ratio 14.8, Glucose 110 H, Calcium 8.5, Magnesium 1.6 Rhythm: EKG: ECHO: Stress Test: Cardiac Cath: PCI: CT Surgery: Holter monitor: EPS: PPM: CXR: Chest CT Scan: Physical Exam Const alert, oriented x3 and no apparent distress General Appearance: cooperative HEENT hearing grossly normal bilaterally Head and Scalp: atraumatic Eyes EOMs intact bilaterally Neck General: normal visual inspection Chest inspection of chest normal and palpation of chest normal Resp normal respiratory effort Auscultation: clear to auscultation bilaterally Cardio regular rate, regular rhythm, S1 normal heart sound and S2 normal heart sound Jugular Venous Distention: JVD GI normal to inspection, nondistended, normoactive bowel sounds Extremity normal capillary refill and no pedal edema Peripheral Pulses: Yes pulses 2+ throughout and femoral pulses present Skin no rashes or lesions noted Neuro oriented x3 and CN's II-XII intact bilaterally Psych Appearance: grossly normal and appropriate Assessment & Plan Assessment/Plan (1) CAD (coronary artery disease): PLAN: She does have a history of coronary disease and underwent angioplasty and stenting of the left anterior descending artery without any incident. She did have some nonsustained ventricular tachyarrhythmia last night. Electrolytes were noted to be normal we will continue her beta-pato and obtain a Holter monitor. (2) Essential (primary) hypertension: PLAN: Her blood pressure appears to be under good control I would not recommend we make any changes at this time. (3) Nonischemic cardiomyopathy: PLAN: Ventricular function has improved and the plan to be to continue the current medical therapy.
--- NOTE | 2024-01-06 10:07 | PCM.DC ---
Discharge Instructions Diet Discharge Diet: No restrictions (You may continue your normal diet.) Activity Discharge Activity: Return to Normal Activity Lifting Restrictions: 10 pounds and also avoid any pushing or pulling for 3 days after your test. Additional Activity Instructions:: You must have someone drive you home. Do not drive until instructed by your doctor. You must have someone stay with you all night after your test. Rest in bed or on the couch until the next morning. Limit the number of times you go up and down stairs the day of your test. Apply pressure to the puncture site if you sneeze or cough. Dressing / Incision Call your doctor if your incision/area has: Increased Pain/ Swelling, Increased Redness, Foul Smelling Discharge and Swelling at the incision site Call your doctor if you observe: Fever of 101 or Higher Additional Dressing/Incision Instructions:: Keep the dressing (bandage) on until the next morning. You may then shower, but do not take a tub bath for 5 days after your test. It is normal to have some tenderness and discomfort at the puncture site. Sometimes bruising also occurs. However, if pain, numbness, or coldness occurs below the puncture site (in your leg, toes, arms or fingers) call your doctor at once. You may have a small, marble sized knot at the puncture site. This is normal. Do not rub it. It will go away in 4-6 weeks. Bleeding can occur from the area where the puncture was done. Blood may spurt or drip from the site. If blood spurts, apply pressure right away to stop bleeding and call 911. Although rare, bleeding into the tissue (hematoma) can also occur. If this happens, a large, firm area goose egg under the skin will appear. If any of these occur, lie down as flat as you can and have someone apply firm pressure to the cath site with a gauze pad or a clean washcloth for 10-15 minutes. Call 911 or go to the Emergency Department. Follow Up Care Test Results: Test results from this visit will be discussed in further detail at your follow-up appointment, if applicable. Discharge Plan Admission Admit Date/Time: 01/05/24 14:33 Attending Provider: Sergio Maya Primary Care Provider: Margarita Drake Consulting Providers: Allyn Manley NP Discharge Orders/Prescriptions Prescriptions: New carvedilol 3.125 mg Tablet 6.25 mg PO BID Qty: 180 3RF Continued cholecalciferol (vitamin D3) 2,000 unit capsule 1,000 unit PO DAILY (DME) 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 See Rx Instructions .Route .MEDSUPPLY Qty: 1 0RF Rx Instructions: Wear at night. duloxetine 30 mg capsule,delayed release(DR/EC) 30 mg PO QHS Qty: 30 7RF folic acid 1 mg tablet 2 mg PO DAILY methotrexate sodium 2.5 mg tablet 2.5 mg PO QWEEK Rx Instructions: take 8 tablets per week gabapentin 800 mg tablet 800 mg PO TID amlodipine-benazepril [Lotrel] 10-20 mg capsule 1 cap PO DAILY methadone 5 mg tablet 10 mg PO TID Patient Comments: TAKE 1 TABLET BY MOUTH TWICE DAILY pantoprazole [Protonix] 20 mg Tablet,Delayed Release (Dr/Ec) 40 mg PO BID ondansetron 4 mg tablet,disintegrating 4 mg PO Q6H PRN (Reason: nausea and vomiting) Qty: 7 0RF Rx Instructions: As needed for nausea. If you are not nauseated or vomiting you do not need to take it. potassium chloride 20 mEq tablet,ER particles/crystals 40 meq PO DAILY 10 Days Qty: 20 0RF aspirin [Adult Aspirin Regimen] 81 mg tablet,delayed release (DR/EC) 81 mg PO DAILY metformin 500 mg tablet extended release 24 hr 500 mg PO BID spironolactone 25 mg tablet 25 mg PO DAILY Qty: 30 6RF Brilinta 90 mg tablet 90 mg PO BID Qty: 60 11RF Discontinued carvedilol 3.125 mg tablet 3.125 mg PO BID Qty: 60 11RF Rx Instructions: must administer with a meal/food Referrals / Follow Up: Margarita Drake DO [Primary Care Provider] - Allyn Manley SURGICAL SUPERVISOR, SURGICAL SUPERVISOR-C [Non-Staff -Ordering Privileges] - 01/19/24 2:00 pm (post procedure follow up) Disposition Disposition (needs filled in before D/C Order can be placed): Home, Self Care
[2024-01-06 11:43] LABS: Bedside Glucose 131 mg/dL (74-106)
== END 2024-01-06 10:07 | disposition home or self-care (01) ==
LOC: PCU 15:53
PROVIDERS: Family Medicine; Physician Assistant Medical; Admitting Provider Internal Medicine Cardiovascular Disease; PCP Internal Medicine; Referring Provider Internal Medicine Cardiovascular Disease; Visit Provider Internal Medicine Cardiovascular Disease
DX: I25.118 Atherosclerotic heart disease of native coronary artery with other forms of angina pectoris (principal); I42.8 Other cardiomyopathies; E11.9 Type 2 diabetes mellitus without complications; R94.39 Abnormal result of other cardiovascular function study; E78.5 Hyperlipidemia, unspecified; R00.0 Tachycardia, unspecified; I10 Essential (primary) hypertension; Z86.718 Personal history of other venous thrombosis and embolism; M79.7 Fibromyalgia; K21.9 Gastro-esophageal reflux disease without esophagitis; Z86.711 Personal history of pulmonary embolism; R06.02 Shortness of breath
CPT/HCPCS: 36415; 80048; 82962; 83735; 85025; 85610; 85730; 92928; 93005; 93458; 99152; 99153; 99221; J7040; Q9967; A4216; C1725; C1769; C1874; C1887; C1894; C9600; G0378; J1327; J2405

== ENCOUNTER → 2024-01-06 | Outpatient (CLI) | payer MEDICARE, OTHER, SELFPAY | END | disposition home or self-care (01) | LOC: PCUOUT 10:16 | PROVIDERS: PCP Internal Medicine; Referring Provider Internal Medicine Cardiovascular Disease; Visit Provider Internal Medicine Cardiovascular Disease | DX: I25.10 Atherosclerotic heart disease of native coronary artery without angina pectoris (principal) | CPT/HCPCS: 93225; 93226 ==

== ENCOUNTER → 2024-01-17 | Outpatient (CLI) | payer MEDICARE, OTHER, SELFPAY ==
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
--- NOTE | 2024-01-17 08:00 | CR.ITP_ITS ---
Diagnosis General Information Admitting Diagnosis: S/P PCI w/ELVIA to mid LAD Secondary Diagnosis: Aortic Valve insufficiency, Takotsubo Cardiomyopathy, HTN, HLD Personal Learning Style:: Audio/Visual and Written Barriers to Learning: Emotional/Anxiety and Vision Impairment Stage of change r/t lifestyle modifications:: Contemplation Gave educational material for:: Treating Heart Disease, How The Heart Works, What it means to have Heart Disease, How Coronary Artery Disease is Diagnosed, Heart Procedures, What Heart Medications Do, Risk Factors & Modifications, Living an Active Life, Nutrition, Emotions & Heart Disease, Stress Management & Relaxation and Sleep Disorders & Heart Disease Education/Goals Individual Counseling: Initial Assessment: Abnormal Cholesterol Levels, High Blood Pressure and Diabetes (Type II medication controlled metformin) Cardiac Rehabilitation Goals Personal Goals: Initial Assessment: Improve energy level, Improve knowledge of cardiac disease, Improve muscle strength and endurance and Control risk factors (learn risk factor modification) Scale for measuring improvement of personal goals Diagnosis & Disease Process Outcomes/Goals: Pt IDs own risk factors & lifestyle modifications by Session 10, Verbalizes symptoms of angina & response by session 3. and Pt independently manages Plan/Interventions: Assist Pt to ID & engage in lifestyle modification to reduce CVD risk, Instruct on individual risk factors, Review symptoms of angina & emergency actions and Review secondary diagnosis & identify educational needs. Safety Referral to Physical Therapy: No Referral to [facility] Case Management: No Fall Risk Assessed:: Yes Assistive Devices:: Cane and Walker (DVT of popliteal vein, arthritis, Lumbar stenosis, osteoarthritis) Exercise - Initial Assessment Visit Date of Eval: 01/17/24 Session #:: 0 (pre=program evaluation) Mets: Pre-: >5 METS for 30 minutes by discharge Physician Prescribed Exercise Modalities: NuStep, SciFit and Lateral [place] Frequency: 3x/week for 12 weeks [36 sessions] Intensity: 60-80% of age predicted maximum heart rate reserve Duration: 30 - 45 minutes Current METSs:: 2.0 Target Heart Rate:: 91-105 Resting Blood Pressure: 108/70 EKG Type: Sinus bradycardia Outcomes & Goals Goals:: Verbalizes understanding of THR, RPE & goal METS by session 6, Documents in home exercise log/reports 30 min aerobic 5 day/wk by DC and Demonstrates accurate pulse taking by DC Intervention & Plan Exercise Program Goals: Instruct on personal THR & RPE, Instruct on MET level & personal MET goal, Show patient to take own pulse /validate performance until accurate and Instruct on home exercise Physical Activity Home Exercise Physical Activity - Home Exercise: Safe Exercise, Warm-up, Self-monitoring, Cool-Down, Home Exercise > 30 min Daily and Sitting Time <3 hours/daily Outcomes & Goals Outcomes/Goals: Demonstrates correct Warm-up/exercise Cool-Down (S3) if = 2.5 METs, Verbalizes symptoms of exercise intolerance by Session 3 (S3) and Demonstrate safe equipment use (S3) & follows exercise prescrition (6) Intervention & Plan Plan/Intervention: Instruct warm-up & cool-down if exercising at > 2 METs, Instruct on symptoms of exercise intolerance & actions to take, Instruct & monitor on saf and Assess intial functional capacity & safety risk Nutrition - Initial Assessment Program Goals Nutrition Program Goals Patient has diagnosis of Hyperlipidemia (ICD E78)?: Yes Visit Date of Eval: 01/17/24 Session #:: 0 (pre-program evaluation) Cholesterol/Lipids (Other Core Measures) Triglycerides (mg/dL): 189 Total Cholesterol (mg/dL): 148 LDL Cholesterol (mg/dL): 71 HDL Cholesterol (mg/dL): 39 Determine presence & major risk factors that modify LDL goal: Hypertension or hypertensive medication, Low HDL cholesterol <40 mg/dL*, Family history of premature CHD in Male < 55 years: female <65 yearsFa and Age men > 45 years; women >/= 55 years Outcomes/Goals: Pt IDs own risk factors & lifestyle modifications by Session 10, Verbalizes symptoms of angina & response by session 3. and Pt independently manages Intervention/Plan: Instruct on personal lipid levels & lipid goals/NCEP guidelin es and Instruct on cholesterol Diabetes (Other Core Measures) Diabetes Type: Diagnosis Type II ICD-10 E11 Non-Insulin Dependent?: Yes (Metformin 500mg TID) Do you monitor your blood sugar at home?: No Referral to Diabetic Clinic:: Yes Weight Mgt (Other Care) Not Applicable: No Height: 5 ft 3 in Weight:: 110 lb (Risk of malnutrition) BMI: 19.5 Diagnosis Overweight/Obesity BMI> 30% ICD-10 E66: No Diagnosis High BMI/Morbid Obesity BMI> 35% ICD-10 Z68: No Outcomes/Goals: Pt sets, maintains & shows weight loss goal & trend during rehab Intervention/Plan: Instruct on ideal BMI & set weight loss goal w/patient Healthy Eating Habits Will attend diet classes:: Yes Outcomes/Goals:: Consume diet rich in vegs,fruits,whole grain/high fiber,fish,lean meat and Limit sat/trans fats,cholesterol & added salts & sugars Intervention/Plan:: Assess current eating habits Education Gave educational materials for:: Relate diabetes to coronary artery disease and Healthy eating Core - Initial Assessment Visit Date of Eval: 01/17/24 Session #:: 0 Medication Compliance Preventative Medication(s):: Aspirin, Ticagrelor/P2Y12 inhibitor and Beta pato H/O mental health issues: depression, anxiety, or addiction?: Yes Doesn?t believe in the benefits of treatment?: No Believes medications are unnecessary or harmful?: No Has a concern about medication side effects?: No Expresses concern over the cost of medications?: No Outcomes/Goals: Verbalizes medications,desired effect & common side effects @ DC, Pt self-reports following medication regimen and Keeps card in wallet w/medications listed by DC Interventions/plans: Instruct on medication effects & side effects, Review medication list w/patient every two weeks and Instruct importance of taking meds as ordered & assist problem solving Tobacco Use Tobacco Use: Non-smoker Interventions/plan: Instruct on effects of smoking & provide smoking cessation resource, Assist pt to set quit date & provide encouragement, Assist pt to develop strategies to achieve/maintain quit date and Assist pt w/nicotine replacement & medication for cessation success Hypertension Hypertension Diagnosis:: Hypertension ICD-10 I10 Resting Blood Pressure:: 108/70 [place] [employer] Hypertension Guidelines Outcomes/Goals: Able to verbalize/achieve optimal blood pressure <130/80 and Incorporates diet changes & exercise for blood pressure control by DC Interventions/plan: Instruct on optimal blood pressure, hypertension & medications and Instruct on effects of sodium, alcohol, stress, exercise &hypertension Tobacco Cessation Referral Smoking Cessation Referral:: No Individual Education/Counseling:: No Education Schedule Given:: Yes Psychosocial - Initial Assess VIsit Date of Eval: 01/17/24 Session #:: 0 (Pre-program evaluation) Not Applicable: No History of previous Mental disease:: Yes History of Emotional Disorders: Anxious and Depression Target Goals Target Goals Psychosocial Test Tool Used:: [employer] Power QOL Cardiac and PHQ-9 Questionnaire phq-9 Severity Referral to Behavioral Health PS - Interventions: Yes: Attend Stress Management Classes Outcomes/Goals: See list Psychosocial Outcomes/Goals:: ID's personal stressors & 2 strategies to manage stress by discharge Intervention/Plan: See List Interventions/Plan:: Assess stressors,coping strategies & signs of derpression on admission, Instruct/assist pt to develop coping & personal stress Mgt strategies, Instruct patient to recognize signs & symptoms of depression and Instruct patient to recog Patient Health Questionnaire PHQ-9 Screening Initial Assessment: 1. Little interest or pleasure in doing things: Not at all 2. Feeling down, depressed, or hopeless: Not at all 3. Trouble falling or staying asleep, or sleeping too much: Not at all 4. Feeling tired or having little energy: Not at all 5. Poor appetite or overeating: Not at all 6. Feeling bad about yourself -- or that you are a failure or have let yourself or your family down: Not at all 7. Trouble concentrating on things, such as reading the newspaper or watching television: Not at all 8. Moving or speaking so slowly that other people could have noticed. Or the opposite - being so fidgety or restless that you have been moving around a lot more than usual: Not at all 9. Thoughts that you would be better off , or of hurting yourself in some way: Not at all How difficult have these problems made it for you to do your work, take care of things at home, or get along with other people?: Not difficult at all Total Score: 0 SHYANNE-Q SV Test Statements CAD is a disease of the arteries in the heart: I Don't Know Examples of risk factors for heart disease: I Don't Know Angina is chest pain or discomfort: I Don't Know The benefits of resistance training include: I Don't Know Eating more meat and dairy products: I Don't Know Anti-platelet medications such as aspirin are important: True The only effective way to manage stress: I Don't Know An exercise warm-up slowly increases heart rate: I Don't Know Prepared, processed foods usually have high sodium: I Don't Know Depression is common after a heart attack: I Don't Know The statin medications lower cholesterol: True To control blood pressure, lower the amount of sodium: I Don't Know If someone gets chest discomfort during walking: False Transfats are partially hydrogenated vegetable oils: True Sleep apnea that is not treated increases the risk: I Don't Know To control cholesterol, one should become a vegetarian: I Don't Know Someone knows if he/she is exercising at the right level: I Don't Know Diabetes cannot be prevented with exercise & health eating: I Don't Know Stress is a large risk for heart attack: I Don't Know A diet that can help lower blood pressure is rich in: True Total Score Total Correct Responses: 5 Self-Efficacy 6-Item Scale Initial Assessment: We would like to know how confident you are in doing certain activities. Please select your confidence level for: Fatigue Select Number: 10 Physical Discomfort or Pain Select Number: 10 Emotional Distress Select Number: 10 Other Symptoms or Health Problems Select Number: 10 Different Tasks and Activities Select Number: 10 Medication Select Number: 10 Total Score:: 10 Nutrition Survey Nutrition Survey Instructions Scoring Instructions Nutrition Survey Initial: Have you lost >10 lbs over the past 2 months without trying?: Yes Are you following a special diet at home for diabetes, low fat, or low salt?: No Are you interested in meeting with a dietitian for help understanding your diet?: No Do you eat less than 3 meals a day?: Yes Do you eat fatty meats (meier, sausage, ribs, etc), fried foods, desserts, large amounts of salad dressings, margarine, butter, or cheese most days?: No Do you have food allergies? [Enter types in comment field]: No Do you eat in restaurants more than 3 times a week?: No Do you season food with salt, seasoning salt, or garlic salt?: No Do you used canned, boxed, frozen meals, or soups, seasoning packets?: No Total Score:: 2 Exercise - Final/Discharge Physician Prescribed Exercise Modalities: NuStep, SciFit and Lateral Certified Rehabilitation Counselor Frequency: 3x/week for 12 weeks [36 sessions] Intensity: 60-80% of age predicted maximum heart rate reserve Current METSs:: 2.0 Target Heart Rate:: 91-105 Nutrition - 30-Day Assessment Weight Mgt (Other Care) Height: 5 ft 3 in Weight:: 110 lb (Risk of malnutrition) BMI: 19.5 Nutrition - 60-Day Assessment Weight Mgt (Other Care) Height: 5 ft 3 in Weight:: 110 lb (Risk of malnutrition) BMI: 19.5 Core - 30-Day Assessment Visit Session #:: 0 (pre=program evaluation) Core - Final Assessment Hypertension Resting Blood Pressure:: 108/70 [place] [employer] Hypertension Guidelines Core - 60-Day Assessment Hypertension Resting Blood Pressure:: 108/70 [place] [employer] Hypertension Guidelines Psychosocial - 30-Day Assess Target Goals Target Goals Referral to Behavioral Health PS - Interventions: Yes: Attend Stress Management Classes Psychosocial - 60-Day Assess Target Goals Target Goals Referral to Behavioral Health PS - Interventions: Yes: Attend Stress Management Classes Psychosocial - 90-Day Assess Target Goals Target Goals Referral to Behavioral Health PS - Interventions: Yes: Attend Stress Management Classes Psychosocial - Final Assessmen Target Goals Target Goals Referral to Behavioral Health PS - Interventions: Yes: Attend Stress Management Classes Nutrition - 90-Day Assessment Weight Mgt (Other Care) Height: 5 ft 3 in Weight:: 110 lb (Risk of malnutrition) BMI: 19.5 Nutrition - Final Assessment Program Goals Patient has diagnosis of Hyperlipidemia (ICD E78)?: Yes Weight Mgt (Other Care) Height: 5 ft 3 in Weight:: 110 lb (Risk of malnutrition) BMI: 19.5
[2024-01-17 08:30] VITALS: BP 108/70; BMI 19.5
[2024-01-17 08:59] VITALS: BP 108/70; PULSE 71; RESP 14; O2SAT 98; BMI 18.8
== END | disposition home or self-care (01) ==
LOC: CR 07:27
PROVIDERS: PCP Internal Medicine; Referring Provider Internal Medicine Cardiovascular Disease; Visit Provider Internal Medicine Cardiovascular Disease
DX: Z95.5 Presence of coronary angioplasty implant and graft (principal); L89.153 Pressure ulcer of sacral region, stage 3; M06.9 Rheumatoid arthritis, unspecified; Q07.00 Arnold-Chiari syndrome without spina bifida or hydrocephalus; I50.9 Heart failure, unspecified; I11.0 Hypertensive heart disease with heart failure; I26.99 Other pulmonary embolism without acute cor pulmonale; I82.439 Acute embolism and thrombosis of unspecified popliteal vein; I42.8 Other cardiomyopathies; C80.1 Malignant (primary) neoplasm, unspecified; E11.9 Type 2 diabetes mellitus without complications; G43.909 Migraine, unspecified, not intractable, without status migrainosus; Z86.39 Personal history of other endocrine, nutritional and metabolic disease; G47.33 Obstructive sleep apnea (adult) (pediatric); M17.12 Unilateral primary osteoarthritis, left knee; E04.2 Nontoxic multinodular goiter; I07.1 Rheumatic tricuspid insufficiency; I35.1 Nonrheumatic aortic (valve) insufficiency; K44.9 Diaphragmatic hernia without obstruction or gangrene; Z87.19 Personal history of other diseases of the digestive system; K21.9 Gastro-esophageal reflux disease without esophagitis; Z86.718 Personal history of other venous thrombosis and embolism; Z97.2 Presence of dental prosthetic device (complete) (partial); Z97.3 Presence of spectacles and contact lenses; Z78.9 Other specified health status; Z87.898 Personal history of other specified conditions; R23.8 Other skin changes; I25.10 Atherosclerotic heart disease of native coronary artery without angina pectoris; G47.34 Idiopathic sleep related nonobstructive alveolar hypoventilation; J18.9 Pneumonia, unspecified organism; M25.569 Pain in unspecified knee; R10.30 Lower abdominal pain, unspecified; N30.90 Cystitis, unspecified without hematuria; E78.5 Hyperlipidemia, unspecified; R07.89 Other chest pain; Z79.899 Other long term (current) drug therapy; R60.0 Localized edema; G47.10 Hypersomnia, unspecified; R53.83 Other fatigue; G47.00 Insomnia, unspecified; F41.9 Anxiety disorder, unspecified; F32.9 Major depressive disorder, single episode, unspecified; G89.4 Chronic pain syndrome; J32.9 Chronic sinusitis, unspecified; Z90.49 Acquired absence of other specified parts of digestive tract; Z90.710 Acquired absence of both cervix and uterus; Z90.722 Acquired absence of ovaries, bilateral; Z90.79 Acquired absence of other genital organ(s); Z98.1 Arthrodesis status; Z98.890 Other specified postprocedural states; Z98.49 Cataract extraction status, unspecified eye; Z96.642 Presence of left artificial hip joint; Z96.641 Presence of right artificial hip joint; Z96.651 Presence of right artificial knee joint; R06.02 Shortness of breath

== ENCOUNTER → 2024-01-19 | Outpatient (CLI) | payer MEDICARE, OTHER, SELFPAY ==
[2024-01-17 08:30] VITALS: BMI 19.5
[2024-01-19 15:28] LABS: Absolute Lymphocyte Count 2.39 X10^3/uL (0.83-4.51); Absolute Neutrophil Count 5.8 X10^3/uL (2.0-7.7); Basophil# 0.04 X10^3/uL; Basophil% 0.4 % (0-1); Eosinophils% 4.5 % (0-5); Hematocrit 34.4 % (37-47); Hemoglobin 11.3 g/dL (12.0-15.0); Lymphocyte # 2.39 X10^3/ul (0.83-4.51); Lymphocyte % 26.7 % (19-41); Mean Corp Hgb Conc 32.8 g/dL (32-36); Mean Corpuscular Hgb 32.7 pg (27.0-32.0); Mean Corpuscular Volume 99.4 fL (81-99); Mean Platelet Vol. 10.2 fl (6.2-12.0); Monocyte# 0.28 X10^3/uL; Monocyte% 3.1 % (0-10); NRBC Flagged by Analyzer 0 % (0-5); Neutrophil # 5.81 X10^3/uL (2.7-7.7); Platelet Count 231 K/mm3 (150-450); RBC Distribution Width CV 13.2 % (11.6-14.6); RBC Distribution Width SD 47.3 fl (35.1-43.9); Red Blood Count 3.46 M/mm3 (4.2-5.4)
[2024-01-19 15:55] LABS: Anion Gap 7 (5-15); BUN 20 mg/dL (7-18); BUN/Creat Ratio 23.1 RATIO (10-20); Calcium,Total 8.7 mg/dL (8.5-10.1); Chloride 104 mmol/L (98-107); Creatinine, Serum 0.87 mg/dL (0.55-1.02); EST Glomerular Filtration Rate 67 mL/min (>60); Est Glom Filt Rate - Afr Amer 81 mL/min (>60); Glucose 96 mg/dL (74-106); Potassium 4.1 mmol/L (3.5-5.1); Sodium Level 137 mmol/L (136-145)
== END | disposition home or self-care (01) ==
LOC: LAB 14:31
PROVIDERS: PCP Internal Medicine; Referring Provider Nurse Practitioner Gerontology; Visit Provider Nurse Practitioner Gerontology
DX: I10 Essential (primary) hypertension (principal)
CPT/HCPCS: 36415; 80048; 85025

== ENCOUNTER → 2024-01-22 | Outpatient (CLI) | payer MEDICARE, OTHER, SELFPAY ==
[2024-01-17 08:30] VITALS: BMI 19.5
[2024-01-22 13:35] LABS: Absolute Lymphocyte Count 2.03 X10^3/uL (0.83-4.51); Absolute Neutrophil Count 7.2 X10^3/uL (2.0-7.7); Basophil# 0.03 X10^3/uL; Basophil% 0.3 % (0-1); Eosinophil# 0.27 X10^3/uL; Eosinophils% 2.7 % (0-5); Hematocrit 35.9 % (37-47); Hemoglobin 11.4 g/dL (12.0-15.0); Lymphocyte # 2.03 X10^3/ul (0.83-4.51); Lymphocyte % 20.7 % (19-41); Mean Corp Hgb Conc 31.8 g/dL (32-36); Mean Corpuscular Hgb 31.6 pg (27.0-32.0); Mean Corpuscular Volume 99.4 fL (81-99); Mean Platelet Vol. 10.4 fl (6.2-12.0); Monocyte# 0.21 X10^3/uL; Monocyte% 2.1 % (0-10); NRBC Flagged by Analyzer 0 % (0-5); Neutrophil # 7.23 X10^3/uL (2.7-7.7); Neutrophil % 73.7 % (47-70); Platelet Count 190 K/mm3 (150-450); RBC Distribution Width CV 13.2 % (11.6-14.6); RBC Distribution Width SD 46.7 fl (35.1-43.9); Red Blood Count 3.61 M/mm3 (4.2-5.4); White Blood Count 9.8 K/mm3 (4.4-11.0)
== END | disposition home or self-care (01) ==
LOC: LAB 13:02
PROVIDERS: PCP Internal Medicine; Referring Provider Internal Medicine Cardiovascular Disease; Visit Provider Internal Medicine Cardiovascular Disease
DX: R23.3 Spontaneous ecchymoses (principal); R58 Hemorrhage, not elsewhere classified; Z95.5 Presence of coronary angioplasty implant and graft
CPT/HCPCS: 36415; 85025

== ENCOUNTER → 2024-01-23 | Outpatient (CLI) | payer MEDICARE, OTHER, SELFPAY ==
[2024-01-17 08:30] VITALS: BMI 19.5
== END | disposition home or self-care (01) ==
LOC: LABSPEC 17:51
PROVIDERS: PCP Internal Medicine; Visit Provider Physician Assistant
DX: N39.0 Urinary tract infection, site not specified (principal)
CPT/HCPCS: 87086; 87088; 87186

== ENCOUNTER 2024-01-25 10:02 | Emergency (ER) | payer MEDICARE, OTHER, SELFPAY ==
[2024-01-17 08:30] VITALS: BMI 19.5
[2024-01-25 10:02] VITALS: BP 142/72; PULSE 54; RESP 15; TEMP 36.9; O2SAT 97; O2SAT 98; BMI 20.2
[2024-01-25 10:07] VITALS: BP 142/72; PULSE 56; RESP 16; TEMP 36.9; O2SAT 97
--- NOTE | 2024-01-25 10:19 | EKG12_ITS ---
Test Reason : CP Blood Pressure : / mmHG Vent. Rate : 053 BPM Atrial Rate : 053 BPM P-R Int : 174 ms QRS Dur : 080 ms QT Int : 454 ms P-R-T Axes : 012 -11 071 degrees QTc Int : 426 ms Sinus bradycardia with sinus arrhythmia Inferior infarct , age undetermined Anteroseptal infarct , age undetermined Abnormal ECG Confirmed by Edin Dolan ([id number]), senior editor MILVIA MCLEAN ([id number]) on 01/26/2024 10:17:43 AM Referred By: Confirmed By:Edin Dolan
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
[2024-01-25 10:34] LABS: Absolute Lymphocyte Count 1.25 X10^3/uL (0.83-4.51); Absolute Neutrophil Count 3.9 X10^3/uL (2.0-7.7); Basophil# 0.03 X10^3/uL; Basophil% 0.6 % (0-1); Eosinophil# 0.19 X10^3/uL; Eosinophils% 3.5 % (0-5); Hematocrit 34.4 % (37-47); Hemoglobin 11.1 g/dL (12.0-15.0); Lymphocyte # 1.25 X10^3/ul (0.83-4.51); Mean Corp Hgb Conc 32.3 g/dL (32-36); Mean Corpuscular Hgb 32.1 pg (27.0-32.0); Mean Corpuscular Volume 99.4 fL (81-99); Mean Platelet Vol. 10.4 fl (6.2-12.0); Monocyte% 1.8 % (0-10); NRBC Flagged by Analyzer 0 % (0-5); Neutrophil # 3.85 X10^3/uL (2.7-7.7); Neutrophil % 70.7 % (47-70); Platelet Count 149 K/mm3 (150-450); RBC Distribution Width CV 13.1 % (11.6-14.6); RBC Distribution Width SD 46.5 fl (35.1-43.9); Red Blood Count 3.46 M/mm3 (4.2-5.4); White Blood Count 5.4 K/mm3 (4.4-11.0)
[2024-01-25] MEDS: 0.9% Normal Saline (1000mL) 1,000 ML 1000 ML IV (10:34)
[2024-01-25] MEDS: Ondansetron 4 MG/2 ML Vial IV (10:34)
[2024-01-25 10:55] LABS: International Normalized Ratio 1.1; Prothrombin Time (Protime)PT. 14.6 SECONDS (11.7-14.9)
--- NOTE | 2024-01-25 10:55 | RAD_ITS ---
STUDY: X-RAY CHEST REASON FOR EXAM: Female, 78 years old. Chest pain. TECHNIQUE: Single frontal view of the chest. COMPARISON: September 22, 2023 FINDINGS: Hyperinflation unchanged. There is no demonstrated pleural abnormality. Stable cardiomegaly with left ventricular prominence. Normal mediastinum and karthik. Normal visualized pulmonary arteries. Aortic tortuosity unchanged. No abnormality of the visualized soft tissue structures of the upper abdomen. RAD/Chest 1 View (Portable) IMPRESSION: Stable chest with no acute or active cardiopulmonary disease. Electronically Signed: Heraclio Meredith MD at 11:13 EDT ,
[2024-01-25 10:56] LABS: Partial Thromboplast Time 29.4 Seconds (24.1-36.2)
[2024-01-25 10:59] LABS: AST(SGOT) 26 U/L (15-37); Alanine Aminotransfer ALT/SGPT 14 U/L (13-56); Albumin, Serum 3.4 g/dL (3.2-5.0); Alkaline Phosphatase 48 U/L (45-117); Anion Gap 4 (5-15); BUN 12 mg/dL (7-18); BUN/Creat Ratio 15.9 RATIO (10-20); Bilirubin, Direct 0.15 mg/dL (0.00-0.30); Calcium,Total 8.5 mg/dL (8.5-10.1); Chloride 101 mmol/L (98-107); Creatinine, Serum 0.76 mg/dL (0.55-1.02); EST Glomerular Filtration Rate 78 mL/min (>60); Est Glom Filt Rate - Afr Amer 95 mL/min (>60); Estimated Creatinine Clearance 45.95 ml/min; Globulin 3.6 g/dL (2.2-4.2); Glucose 100 mg/dL (74-106); Lipase 10 U/L (13-75); Sodium Level 135 mmol/L (136-145); Troponin-I HS 18 pg/mL (3.0-54.0)
[2024-01-25 11:02] VITALS: BP 102/66; PULSE 54; RESP 13; TEMP 36.3; O2SAT 94; O2SAT 95
[2024-01-25 11:17] LABS: Lactic Acid 0.8 mmol/L (0.4-1.9)
[2024-01-25 11:54] LABS: Bacteria 0 SEEN /hpf (None Seen); Mucous, Urine 0 SEEN /hpf (<or=2+); Red Blood Cells-Urine 0 SEEN /hpf (0-5)
[2024-01-25 11:58] LABS: Color, Urine Yellow (Yellow); Glucose, Dipstick Normal (Normal); Ketone-Dipstick Negative (Negative); Leukocyte Esterase-Dipstick 100 /ul (Negative); Nitrite-Dipstick Negative (Negative); Occult Blood-Urine Negative /ul (Negative); Protein-Dipstick 15 mg/dl (Negative); Specific Gravity, Urine 1.015 (1.002-1.030); Urine Bilirubin Dipstick Negative (Negative); Urine Clarity Sl. Cloudy (Clear); Urine Urobilinogen Normal (Normal)
[2024-01-25 12:00] VITALS: BP 124/60; PULSE 60; RESP 17; O2SAT 97
[2024-01-25 12:04] LABS: Squamous Epithelial Cells - UA 0-5 SEEN /hpf (5-10); White Blood Cells 10-25 SEEN /hpf (0-5)
== END 2024-01-25 12:41 | disposition home or self-care (01) ==
PROVIDERS: Emergency Provider Emergency Medicine; PCP Internal Medicine; Visit Provider Emergency Medicine
DX: K13.79 Other lesions of oral mucosa (principal); E11.9 Type 2 diabetes mellitus without complications; R11.2 Nausea with vomiting, unspecified; R06.00 Dyspnea, unspecified; Z79.82 Long term (current) use of aspirin; Z79.899 Other long term (current) drug therapy; Z79.84 Long term (current) use of oral hypoglycemic drugs; G47.33 Obstructive sleep apnea (adult) (pediatric); Z86.718 Personal history of other venous thrombosis and embolism; Z86.711 Personal history of pulmonary embolism
CPT/HCPCS: 71045; 80048; 80076; 81001; 83605; 83690; 84484; 85025; 85610; 85730; 93005; 96361; 96374; 99284; A4216; J2405

== ENCOUNTER 2024-02-02 08:00 | Outpatient (RCR) | payer MEDICARE, OTHER, SELFPAY ==
[2024-01-17 08:30] VITALS: BMI 19.5
== END 2024-02-02 23:59 ==
LOC: CR 08:00
PROVIDERS: PCP Internal Medicine; Referring Provider Specialist; Visit Provider Specialist
DX: Z95.5 Presence of coronary angioplasty implant and graft (principal); I25.10 Atherosclerotic heart disease of native coronary artery without angina pectoris; R94.39 Abnormal result of other cardiovascular function study; R06.09 Other forms of dyspnea; R53.83 Other fatigue
CPT/HCPCS: 93798

== ENCOUNTER → 2024-02-07 | Outpatient (CLI) | payer MEDICARE, OTHER, SELFPAY ==
[2024-01-17 08:30] VITALS: BMI 19.5
[2024-02-07 12:44] LABS: Absolute Lymphocyte Count 1.55 X10^3/uL (0.83-4.51); Absolute Neutrophil Count 4.5 X10^3/uL (2.0-7.7); Basophil# 0.05 X10^3/uL; Basophil% 0.7 % (0-1); Eosinophil# 0.36 X10^3/uL; Eosinophils% 5.2 % (0-5); Hematocrit 31.2 % (37-47); Hemoglobin 9.8 g/dL (12.0-15.0); Lymphocyte # 1.55 X10^3/ul (0.83-4.51); Lymphocyte % 22.4 % (19-41); Mean Corp Hgb Conc 31.4 g/dL (32-36); Mean Corpuscular Hgb 32.2 pg (27.0-32.0); Mean Corpuscular Volume 102.6 fL (81-99); Mean Platelet Vol. 10.2 fl (6.2-12.0); Monocyte# 0.42 X10^3/uL; Monocyte% 6.1 % (0-10); NRBC Flagged by Analyzer 0 % (0-5); Neutrophil # 4.53 X10^3/uL (2.7-7.7); Neutrophil % 65.3 % (47-70); Platelet Count 498 K/mm3 (150-450); RBC Distribution Width CV 13.8 % (11.6-14.6); RBC Distribution Width SD 51.7 fl (35.1-43.9); Red Blood Count 3.04 M/mm3 (4.2-5.4); White Blood Count 6.9 K/mm3 (4.4-11.0)
[2024-02-07 13:09] LABS: AST(SGOT) 19 U/L (15-37); Alanine Aminotransfer ALT/SGPT 17 U/L (13-56); Albumin, Serum 3.3 g/dL (3.2-5.0); Alkaline Phosphatase 50 U/L (45-117); Anion Gap 6 (5-15); BUN 12 mg/dL (7-18); BUN/Creat Ratio 14.8 RATIO (10-20); Calcium,Total 8.7 mg/dL (8.5-10.1); Chloride 100 mmol/L (98-107); Creatinine, Serum 0.81 mg/dL (0.55-1.02); EST Glomerular Filtration Rate 72 mL/min (>60); Est Glom Filt Rate - Afr Amer 87 mL/min (>60); Globulin 3.3 g/dL (2.2-4.2); Glucose 81 mg/dL (74-106); Potassium 4.2 mmol/L (3.5-5.1); Protein, Total 6.6 g/dL (6.4-8.2); Sodium Level 134 mmol/L (136-145)
== END | disposition home or self-care (01) ==
LOC: MTLAB 10:00
PROVIDERS: PCP Internal Medicine; Referring Provider Internal Medicine Rheumatology; Visit Provider Internal Medicine Rheumatology
DX: M06.4 Inflammatory polyarthropathy (principal); Z79.899 Other long term (current) drug therapy; M79.7 Fibromyalgia; M65.352 Trigger finger, left little finger; M16.0 Bilateral primary osteoarthritis of hip; N39.0 Urinary tract infection, site not specified
CPT/HCPCS: 36415; 80053; 85025; 87086; 87088; 87186

== ENCOUNTER 2024-02-20 12:39 | Inpatient (IN) | payer MEDICARE, OTHER, SELFPAY ==
[2024-02-16 05:39] VITALS: BMI 20.5
[2024-02-20] VITALS (10 sets, daily range): BP systolic 85–128; BP diastolic 54–67; PULSE 58–66; RESP 12–29; TEMP 36.5–36.9; O2SAT 95–98; BMI 22.4; BMI 20.5
--- NOTE | 2024-02-20 13:08 | EKG12_ITS ---
Test Reason : RO SEPSIS Blood Pressure : / mmHG Vent. Rate : 060 BPM Atrial Rate : 060 BPM P-R Int : 196 ms QRS Dur : 072 ms QT Int : 486 ms P-R-T Axes : 039 -08 059 degrees QTc Int : 486 ms Normal sinus rhythm with sinus arrhythmia Low voltage QRS Inferior infarct , age undetermined Cannot rule out Anteroseptal infarct , age undetermined Abnormal ECG Confirmed by LISANDRA ARAGON, PINEDA ([id number]), photography editor MILVIA MCLEAN ([id number]) on 02/22/2024 8:14:31 AM Referred By: Confirmed By:PINEDA FRY MD
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
[2024-02-20] MEDS: 0.9% Normal Saline (1000mL) 1,000 ML 999 ML IV (13:22)
[2024-02-20] MEDS: Ampicillin/Sulbactam 3 GM in 0.9% Normal Saline (100mL MB+) 100 ML IV ×3 (13:29→23:15)
[2024-02-20 13:30] LABS: Absolute Lymphocyte Count 0.71 X10^3/uL (0.83-4.51); Absolute Neutrophil Count 5.9 X10^3/uL (2.0-7.7); Basophil# 0.02 X10^3/uL; Basophil% 0.3 % (0-1); Eosinophil# 0.02 X10^3/uL; Eosinophils% 0.3 % (0-5); Hematocrit 31.1 % (37-47); Hemoglobin 9.9 g/dL (12.0-15.0); Lymphocyte # 0.71 X10^3/ul (0.83-4.51); Lymphocyte % 10.3 % (19-41); Mean Corp Hgb Conc 31.8 g/dL (32-36); Mean Corpuscular Hgb 32.1 pg (27.0-32.0); Mean Platelet Vol. 10.3 fl (6.2-12.0); Monocyte# 0.18 X10^3/uL; Monocyte% 2.6 % (0-10); NRBC Flagged by Analyzer 0 % (0-5); Neutrophil # 5.94 X10^3/uL (2.7-7.7); Neutrophil % 86.1 % (47-70); Platelet Count 252 K/mm3 (150-450); RBC Distribution Width CV 14.4 % (11.6-14.6); RBC Distribution Width SD 51.4 fl (35.1-43.9); Red Blood Count 3.08 M/mm3 (4.2-5.4); White Blood Count 6.9 K/mm3 (4.4-11.0)
[2024-02-20 13:41] LABS: International Normalized Ratio 1.3; Prothrombin Time (Protime)PT. 16.1 SECONDS (11.7-14.9)
[2024-02-20 13:42] LABS: Partial Thromboplast Time 36.4 Seconds (24.1-36.2)
[2024-02-20 13:46] LABS: ALB/GLOB Ratio 0.9 RATIO (0.9-2.4); AST(SGOT) 16 U/L (15-37); Alanine Aminotransfer ALT/SGPT 15 U/L (13-56); Albumin, Serum 3.1 g/dL (3.2-5.0); Alkaline Phosphatase 52 U/L (45-117); Anion Gap 5 (5-15); BUN 17 mg/dL (7-18); BUN/Creat Ratio 17.5 RATIO (10-20); Calcium,Total 8.7 mg/dL (8.5-10.1); Chloride 100 mmol/L (98-107); Creatinine, Serum 0.97 mg/dL (0.55-1.02); EST Glomerular Filtration Rate 58 mL/min (>60); Est Glom Filt Rate - Afr Amer 71 mL/min (>60); Globulin 3.4 g/dL (2.2-4.2); Glucose 141 mg/dL (74-106); Potassium 3.9 mmol/L (3.5-5.1); Protein, Total 6.5 g/dL (6.4-8.2); Sodium Level 134 mmol/L (136-145)
[2024-02-20] MEDS: fentaNYL 100 MCG/2 ML Ampul 25 MCG IV ×2 (13:50→14:47)
[2024-02-20 14:05] LABS: Lactic Acid 1.3 mmol/L (0.4-1.9)
--- NOTE | 2024-02-20 14:45 | NURSING ---
MED SURG CATALINA RT LEG CELLULITIS, N AND V, TRANSIENT HYPOTENSION
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
[2024-02-20 15:14] LABS: Magnesium 1.8 mg/dL (1.6-2.6)
[2024-02-20] MEDS: 0.9% Normal Saline (1000mL) 1,000 ML 100 ML IV (16:13)
[2024-02-20] MEDS: Vancomycin HCl 750 MG in 0.9% Normal Saline (250mL Bag) 250 ML 250 MG IV (16:51)
[2024-02-20] MEDS: Enoxaparin 40 MG/0.4 ML Syringe SC (16:56)
[2024-02-20] MEDS: Methadone 10 MG Tablet PO (17:00)
--- NOTE | 2024-02-20 18:04 | PHA.PHARE_ITS ---
Consult Antibiotic Management Pharmacy has been consulted to manage selected antibiotic: Vancomycin Type of Intervention Type of Consult: New start Suspected Infection Suspected Infection: Skin/Soft tissue Labs Labs: Sodium 134 mmol/L (136-145) L 02/20/24 13:20 Potassium 3.9 mmol/L (3.5-5.1) 02/20/24 13:20 Chloride 100 mmol/L (98-107) 02/20/24 13:20 Carbon Dioxide 29.0 mmol/L (21.0-32.0) 02/20/24 13:20 Anion Gap 5 (5-15) 02/20/24 13:20 BUN 17 mg/dL (7-18) 02/20/24 13:20 Creatinine 0.97 mg/dL (0.55-1.02) 02/20/24 13:20 Est GFR (MDRD) Af Amer 71 mL/min (>60) 02/20/24 13:20 Est GFR (MDRD) Non-Af 58 mL/min (>60) L 02/20/24 13:20 BUN/Creatinine Ratio 17.5 RATIO (10-20) 02/20/24 13:20 Glucose 141 mg/dL (74-106) H 02/20/24 13:20 Dosing Weight Weight used for dosin.4 kg Estimated Creatinine Clearance Estimated Creatinine Clearance: 38 ML/MIN Goal Trough Goal Trough: 10-15 mcg/mL Pharmacy Plan for Drug Dosing Pharmacy Plan for Drug Dosing: Give initial standard dose of 750mg IV x1, then continue with 500mg IV q24h per [facility] dosing protocol. Will check a trough before the 3rd total dose. Pharmacy Service will continue to monitor and adjust dosing as required. Follow-Up Labs Follow-Up Labs: Trough: Vancomycin Date/Time Labs Ordered Labs to be done on [date and time ordered]: 02/22/24 16:30
[2024-02-20] MEDS: Acetaminophen 325 MG Tablet 650 MG PO (19:59)
[2024-02-20] MEDS: DiphenhydrAMINE 25 MG Capsule PO (21:51)
[2024-02-20] MEDS: Senna/Docusate Sodium 1 Tablet 2 TABLET PO (21:51)
[2024-02-20] MEDS: Pantoprazole Sodium 20 MG Tablet PO (21:51)
[2024-02-20] MEDS: Gabapentin 800 MG Tablet PO (21:51)
[2024-02-20] MEDS: Carvedilol 3.125 MG TABLET PO (21:51)
[2024-02-20 22:13] LABS: Bedside Glucose 131 mg/dL (74-106)
[2024-02-20] MEDS: MELATONIN 3 MG TABLET 6 MG PO (23:15)
[2024-02-21 03:45] VITALS: BP 130/67; PULSE 58; RESP 16; TEMP 36.6; O2SAT 97
[2024-02-21] MEDS: Methadone 10 MG Tablet PO ×2 (03:57→13:32)
[2024-02-21] MEDS: 0.9% Normal Saline (1000mL) 1,000 ML 100 ML IV (03:59)
[2024-02-21 05:59] VITALS: BMI 20.4
[2024-02-21] MEDS: Gabapentin 800 MG Tablet PO ×3 (06:26→21:47)
[2024-02-21] MEDS: Ampicillin/Sulbactam 3 GM in 0.9% Normal Saline (100mL MB+) 100 ML IV (06:28)
[2024-02-21] MEDS: oxyCODONE 5 MG Tablet PO (06:32)
[2024-02-21 06:47] LABS: Bedside Glucose 76 mg/dL (74-106)
[2024-02-21 07:33] LABS: Absolute Lymphocyte Count 1.18 X10^3/uL (0.83-4.51); Absolute Neutrophil Count 2.7 X10^3/uL (2.0-7.7); Basophil# 0.03 X10^3/uL; Basophil% 0.7 % (0-1); Eosinophil# 0.06 X10^3/uL; Eosinophils% 1.4 % (0-5); Hematocrit 27.2 % (37-47); Hemoglobin 8.5 g/dL (12.0-15.0); Lymphocyte # 1.18 X10^3/ul (0.83-4.51); Mean Corp Hgb Conc 31.3 g/dL (32-36); Mean Corpuscular Volume 102.3 fL (81-99); Mean Platelet Vol. 10.4 fl (6.2-12.0); Monocyte# 0.19 X10^3/uL; Monocyte% 4.5 % (0-10); NRBC Flagged by Analyzer 0 % (0-5); Neutrophil # 2.73 X10^3/uL (2.7-7.7); Neutrophil % 64.9 % (47-70); Platelet Count 214 K/mm3 (150-450); RBC Distribution Width CV 14.4 % (11.6-14.6); RBC Distribution Width SD 52.2 fl (35.1-43.9); Red Blood Count 2.66 M/mm3 (4.2-5.4); White Blood Count 4.2 K/mm3 (4.4-11.0)
[2024-02-21 08:05] LABS: Anion Gap 3 (5-15); BUN 9 mg/dL (7-18); BUN/Creat Ratio 13.9 RATIO (10-20); Calcium,Total 7.6 mg/dL (8.5-10.1); Chloride 109 mmol/L (98-107); Creatinine, Serum 0.65 mg/dL (0.55-1.02); EST Glomerular Filtration Rate 93 mL/min (>60); Est Glom Filt Rate - Afr Amer 113 mL/min (>60); Estimated Creatinine Clearance 46.31 ml/min; Glucose 104 mg/dL (74-106); Potassium 3.4 mmol/L (3.5-5.1); Sodium Level 138 mmol/L (136-145)
[2024-02-21 08:48] VITALS: BP 140/86; PULSE 63; RESP 16; TEMP 37.3; O2SAT 96
[2024-02-21] MEDS: Folic Acid 1 MG Tablet 2 MG PO (08:54)
[2024-02-21] MEDS: Spironolactone 25 MG Tablet PO (08:54)
[2024-02-21] MEDS: Aspirin E.C. 81 MG Tablet PO (08:55)
[2024-02-21] MEDS: Clopidogrel Bisulfate 75 MG Tablet PO (08:55)
[2024-02-21] MEDS: Enoxaparin 40 MG/0.4 ML Syringe SC (08:55)
[2024-02-21] MEDS: Carvedilol 3.125 MG TABLET PO ×2 (08:55→21:48)
[2024-02-21] MEDS: Senna/Docusate Sodium 1 Tablet 2 TABLET PO ×2 (08:56→21:47)
[2024-02-21] MEDS: Cholecalciferol (VIT D3) 25 MCG TABLET (1,000 UNITS) PO (08:56)
[2024-02-21] MEDS: Pantoprazole Sodium 20 MG Tablet PO ×2 (08:56→21:47)
--- NOTE | 2024-02-21 09:19 | PN.HOSP_ITS ---
Subjective Subjective Redness is improving, has little bit of right lower extremity pain Objective Data Objective Data Vital Signs: Vital Signs Temp Pulse Resp BP Pulse Ox O2 Del Method 99.1 F 63 16 140/86 H 96 Room Air 02/21/24 08:48 02/21/24 08:48 02/21/24 08:48 02/21/24 08:48 02/21/24 08:48 02/21/24 08:48 Oxygen Delivery Method Room Air Weight: 115 lb 4.828 oz Body Mass Index (BMI) 20.4 Intake & Output: Intake and Output for Last 24 Hours 02/20/24 02/21/24 02/22/24 03:59 03:59 03:59 Intake Total 2767.66 / 2767.66 Balance 2767.66 / 2767.66 Lab / Micro Data 02/21/24 07:03 02/21/24 07:03 Labs: Laboratory Results - last 24 hr 02/20/24 13:20: WBC 6.9, RBC 3.08 L, Hgb 9.9 L, Hct 31.1 L, MCV 101.0 H, MCH 32.1 H, MCHC 31.8 L, RDW Std Deviation 51.4 H, RDW Coeff of Jaleel 14.4, Plt Count 252, MPV 10.3, Immature Gran % (Auto) 0.400, Neut % (Auto) 86.1 H, Lymph % (Auto) 10.3 L, [place] % (Auto) 2.6, Eos % (Auto) 0.3, Baso % (Auto) 0.3, Absolute Neuts (auto) 5.9, Absolute Lymphs (auto) 0.71 L, Nucleated RBC % 0, PT 16.1 H, INR 1.3, APTT 36.4 H, Sodium 134 L, Potassium 3.9, Chloride 100, Carbon Dioxide 29.0, Anion Gap 5, BUN 17, Creatinine 0.97, Est GFR (MDRD) Af Amer 71, Est GFR (MDRD) Non-Af 58 L, BUN/Creatinine Ratio 17.5, Glucose 141 H, Lactic Acid 1.3, Calcium 8.7, Magnesium 1.8, Total Bilirubin 0.40, AST 16, ALT 15, Alkaline Phosphatase 52, Total Protein 6.5, Albumin 3.1 L, Globulin 3.4, Albumin/Globulin Ratio 0.9 02/20/24 21:50: POC Glucose 131 H 02/21/24 06:26: POC Glucose 76 02/21/24 07:03: WBC 4.2 L, RBC 2.66 L, Hgb 8.5 L, Hct 27.2 L, MCV 102.3 H, MCH 32.0, MCHC 31.3 L, RDW Std Deviation 52.2 H, RDW Coeff of Jaleel 14.4, Plt Count 214, MPV 10.4, Immature Gran % (Auto) 0.500, Neut % (Auto) 64.9, Lymph % (Auto) 28.0, [place] % (Auto) 4.5, Eos % (Auto) 1.4, Baso % (Auto) 0.7, Absolute Neuts (auto) 2.7, Absolute Lymphs (auto) 1.18, Nucleated RBC % 0, Sodium 138, P otassium 3.4 L, Chloride 109 H, Carbon Dioxide 26.0, Anion Gap 3 L, BUN 9, Creatinine 0.65, Estim Creat Clear Calc 46.31, Est GFR (MDRD) Af Amer 113, Est GFR (MDRD) Non-Af 93, BUN/Creatinine Ratio 13.9, Glucose 104, Calcium 7.6 L Physical Exam Narrative General: Alert, Oriented x3, Cooperative, No apparent distress HEENT: Atraumatic, PERRLA, EOMI, Normocephalic Oral: Moist Mucosa Neck: Supple, No JVD Lungs: Diminished, Normal air movement, No rhonchi, No wheeze, No rales Cardiovascular: Regular rate, Regular Rhythm, Normal S1, Normal S2, No murmurs Abdomen: Soft, Non Tender, Non-Distended, No Hepato-splenomegaly Extremities: No edema, Capillary Refill Less than 3 Seconds Skin: Right lower extremity redness is improving, no obvious area of abscess formation indicate staph infection Musculoskeletal: No Tenderness to Palpation of Joints or Extremities Neurological: No focal neurological deficits, Motor Exam 5/5 strength throughout, Sensory exam intact to light touch and pain Psych/Mental Status: Normal Affect, Appropriate Assessment & Plan Assessment/Plan (1) Cellulitis of leg, right: PLAN: Plan 1. Right lower extremity cellulitis ? She failed outpatient treatment with Bactrim, however this appears to be more strep and staph therefore we will switch to p.o. Keflex to monitor for improvement on oral antibiotics prior to discharge ? She is doing well otherwise and encourage ambulation ? She remains afebrile without a leukocytosis 2. CAD status post stent/essential HTN/HLD ? Continue with aspirin and Plavix ? Continue with Coreg, will monitor her blood pressures and make adjustments as necessary ? She does have a history of Takotsubo cardiomyopathy echo in 2019 with an EF of 65% and stage I diastolic dysfunction ? Continue with statin 3. DM2 ? Hold metformin ? Continue sliding scale insulin ? Accu-Cheks ACHS ? Will monitor make adjustments as necessary 4. GERD ? Stable/continue with PPI 5. Multiple chronic comorbidities include debility due to chronic neck pain and back pain, Arnold-Chiari 1 malformation with prior suboccipital decompression and posterior aspect of C1 ring resected in 2018, multiple joint replacement left hip and right hip replacement, right TKR, multiple back surgeries, lumbar laminectomy, lower extremity polyneuropathy: Patient follows Dr. Buckley as an outpatient. No acute issues. DVT: Lovenox Charges/Coding Visit Charges Inpatient E&M: 14054 Subs Hosp L2
[2024-02-21 09:26] VITALS: O2SAT 95
[2024-02-21] MEDS: Fluticasone 0.05% 1 SPRAY NASAL.SRY 2 SPRAY NASAL (11:18)
[2024-02-21] MEDS: Cephalexin 500 MG Capsule PO ×3 (11:19→21:47)
[2024-02-21 11:22] LABS: Bedside Glucose 116 mg/dL (74-106)
--- NOTE | 2024-02-21 11:34 | CASEMGMT ---
INDRA CAMERON Assessment Face to Face with patient for initial transition planning/care coordination assessment. INDRA CAMERON introduced self and role at [facility], pt voices understanding. Pt is A&Ox4 and is resting comfortably in bed and is calm. Care providers, pharmacy, and demographics verified. Admitting dx: RLE Cellulitis PCP: Noelle Specialists: Ina (Neuro), Maico (Rheum), Pan QUINN (PM) Preferred Pharmacy: [facility] Insurance: [facility] A/B, [employer] Prescription Benefit: Yes LNOK: Rj Katz (SO) Living Arrangements: Pt lives alone in a mobile home with 2 steps to enter ADLs/IADLs: Ind Transportation: Self, SO DME: Rollator, cane, shower GB and chair. Pt denies further needs HHC/SNF: Denies SNF and HHC Hx. Pt reports Hx with [facility] and [facility] for OP Tx Pt?s goal: Home no needs Plan: Home no needs. Pt was cleared by OT. PT eval note is still pending. Pt states that she did well and denies HHC or OP therapy needs. Pt states that she feels safe at home. Pt denies further questions or concerns at this time. Gordo Martel RN, CM
[2024-02-21 13:23] VITALS: BP 118/65; PULSE 64; RESP 16; TEMP 37.4; O2SAT 98
[2024-02-21 17:20] LABS: Bedside Glucose 119 mg/dL (74-106)
[2024-02-21 17:46] LABS: Color, Urine Yellow (Yellow); Glucose, Dipstick Normal (Normal); Ketone-Dipstick Negative (Negative); Leukocyte Esterase-Dipstick Negative /ul (Negative); Nitrite-Dipstick Negative (Negative); Occult Blood-Urine Negative /ul (Negative); Protein-Dipstick Negative (Negative); Specific Gravity, Urine 1.005 (1.002-1.030); Urine Bilirubin Dipstick Negative (Negative); Urine Clarity Clear (Clear); Urine Urobilinogen Normal (Normal); Urine pH 6.5 (5.0 - 8.0)
[2024-02-21] MEDS: Acetaminophen 325 MG Tablet 650 MG PO (20:19)
[2024-02-21] MEDS: 0.9% Saline Lock 10 ML Syringe IV (20:20)
[2024-02-21 21:42] VITALS: BP 138/78; PULSE 65; RESP 17; TEMP 36.8; O2SAT 96
[2024-02-21] MEDS: DiphenhydrAMINE 25 MG Capsule PO (21:47)
[2024-02-21] MEDS: MELATONIN 3 MG TABLET 6 MG PO (21:47)
[2024-02-21 22:12] LABS: Bedside Glucose 80 mg/dL (74-106)
[2024-02-22 03:22] VITALS: BP 148/79; PULSE 60; RESP 16; TEMP 36.4; O2SAT 97
[2024-02-22] MEDS: Methadone 10 MG Tablet PO ×2 (03:27→12:07)
[2024-02-22] MEDS: Lidocaine 2% Viscous15 ML UDC 5 ML PO (03:45)
[2024-02-22 06:00] VITALS: BMI 21.8
[2024-02-22] MEDS: Cephalexin 500 MG Capsule PO (06:47)
[2024-02-22] MEDS: Gabapentin 800 MG Tablet PO (06:47)
[2024-02-22 06:51] LABS: Bedside Glucose 82 mg/dL (74-106)
[2024-02-22 07:41] VITALS: BP 141/81; PULSE 56; RESP 18; TEMP 37.2; O2SAT 96
[2024-02-22] MEDS: Folic Acid 1 MG Tablet 2 MG PO (07:46)
[2024-02-22 08:17] LABS: Absolute Lymphocyte Count 1.53 X10^3/uL (0.83-4.51); Absolute Neutrophil Count 1.9 X10^3/uL (2.0-7.7); Basophil# 0.04 X10^3/uL; Basophil% 1.1 % (0-1); Eosinophil# 0.14 X10^3/uL; Eosinophils% 3.7 % (0-5); Hematocrit 27.1 % (37-47); Hemoglobin 8.6 g/dL (12.0-15.0); Lymphocyte # 1.53 X10^3/ul (0.83-4.51); Lymphocyte % 40.4 % (19-41); Mean Corp Hgb Conc 31.7 g/dL (32-36); Mean Corpuscular Hgb 32.6 pg (27.0-32.0); Mean Corpuscular Volume 102.7 fL (81-99); Mean Platelet Vol. 10.2 fl (6.2-12.0); Monocyte% 5.3 % (0-10); NRBC Flagged by Analyzer 0 % (0-5); Neutrophil # 1.87 X10^3/uL (2.7-7.7); Neutrophil % 49.2 % (47-70); Platelet Count 235 K/mm3 (150-450); RBC Distribution Width CV 14.5 % (11.6-14.6); RBC Distribution Width SD 53.5 fl (35.1-43.9); Red Blood Count 2.64 M/mm3 (4.2-5.4); White Blood Count 3.8 K/mm3 (4.4-11.0)
[2024-02-22 09:25] VITALS: BP 137/72; PULSE 66; RESP 16; TEMP 36.6; O2SAT 97
[2024-02-22] MEDS: Spironolactone 25 MG Tablet PO (09:43)
[2024-02-22] MEDS: Enoxaparin 40 MG/0.4 ML Syringe SC (09:43)
[2024-02-22] MEDS: Aspirin E.C. 81 MG Tablet PO (09:44)
[2024-02-22] MEDS: Carvedilol 3.125 MG TABLET PO (09:44)
[2024-02-22] MEDS: Fluticasone 0.05% 1 SPRAY NASAL.SRY 2 SPRAY NASAL (09:44)
[2024-02-22] MEDS: Clopidogrel Bisulfate 75 MG Tablet PO (09:44)
[2024-02-22] MEDS: Cholecalciferol (VIT D3) 25 MCG TABLET (1,000 UNITS) PO (09:45)
[2024-02-22] MEDS: Pantoprazole Sodium 20 MG Tablet PO (09:45)
[2024-02-22] MEDS: Senna/Docusate Sodium 1 Tablet 2 TABLET PO (09:45)
[2024-02-22 11:22] LABS: Bedside Glucose 135 mg/dL (74-106)
[2024-02-22 11:28] LABS: Ferritin 117 ng/mL (8-252); Iron 20 ug/dL (50-170); Iron Binding Capacity,Total 203 ug/dL (250-450); PERCENT IRON SATURATION 9.9 % (15.0-55.0)
--- NOTE | 2024-02-22 11:33 | DCINST_ITS ---
Discharge Instructions Diet Discharge Diet: Low fat / Low cholesterol and Carb Control Diet Activity Discharge Activity: Return to Normal Activity Dressing / Incision Call your doctor if you observe: Fever of 101 or Higher, Shortness of breath, Dizziness, Fainting spells, Swelling in the ankles, Chest pain and Increased palpitations (irregular heartbeat) Follow Up Care Test Results: Test results from this visit will be discussed in further detail at your follow- up appointment, if applicable. Discharge Plan Admission Admit Date/Time: 02/20/24 14:36 Attending Provider: Leo Park Primary Care Provider: Margarita Drake Consulting Providers: Everton Champagne Instructions Additional Instructions / Restrictions: Follow-up with your PCP in 3 to 5 days to recheck your hemoglobin and make sure that it is stabilized. He may be slightly iron deficient so I placed you on iron supplementation, your anemia could also be due to the fact that you received IV fluids today you are about 8 pounds heavier than when you were admitted because of that. If it continues to trend down, as discussed, you may need that he have stool tested for possible colonoscopy outpatient Discharge Orders/Prescriptions Prescriptions: New cephalexin 500 mg Capsule 500 mg PO Q8 6 Days Qty: 18 0RF ferrous gluconate 324 mg (37.5 mg iron) tablet 324 mg PO DAILY Qty: 30 0RF Continued cholecalciferol (vitamin D3) 2,000 unit capsule 1,000 unit PO DAILY (DME) 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 See Rx Instructions .Route .MEDSUPPLY Qty: 1 0RF Rx Instructions: Wear at night. folic acid 1 mg tablet 2 mg PO DAILY methotrexate sodium 2.5 mg tablet 2.5 mg PO SA Rx Instructions: take 8 tablets per week gabapentin 800 mg tablet 800 mg PO TID pantoprazole [Protonix] 20 mg Tablet,Delayed Release (Dr/Ec) 20 mg PO BID aspirin [Adult Aspirin Regimen] 81 mg tablet,delayed release (DR/EC) 81 mg PO DAILY metformin 500 mg tablet extended release 24 hr 500 mg PO BID prednisone 10 mg tablet 10 mg PO DAILY PRN (Reason: FLARES) baclofen 10 mg tablet 5 - 10 mg PO TID PRN (Reason: muscle spasm) fluticasone propionate 50 mcg/actuation spray,suspension 2 spray INTRANASAL DAILY methadone 10 mg tablet 10 mg PO Q8H PRN (Reason: pain) diphenhydramine HCl 25 mg capsule 25 mg PO QHS Patient Comments: PT STATES SHE TAKES SIMPLY SLEEP AFTER LOOKING MED UP, IT IS DYPHENHYDRAMINE 25MG carvedilol 3.125 mg Tablet 3.125 mg PO BID potassium chloride 20 mEq tablet,ER particles/crystals 20 meq PO DAILY spironolactone 25 mg tablet 25 mg PO DAILY Qty: 30 6RF clopidogrel 75 mg tablet 75 mg PO .COMPLEX Qty: 90 3RF Rx Instructions: 75 mg orally take FOUR TABLETS (300mg) all at once TODAY for loading dose for heart stents; then take ONE tablet by mouth daily; STOP BRILINTA Discontinued sulfamethoxazole-trimethoprim [Bactrim DS] 800-160 mg tablet 1 tab PO Q12H 7 Days Qty: 14 0RF Patient Comments: PT STATES SHE ONLY TAKES 1 QHS Referrals / Follow Up: Margarita Drake DO [Primary Care Provider] - Within 1 Week Disposition Disposition (needs filled in before D/C Order can be placed): Home, Self Care
[2024-02-22 12:01] VITALS: BP 161/70; PULSE 61; RESP 18; TEMP 36.9; O2SAT 94
--- NOTE | 2024-02-22 12:34 | PHA.DC.MC.R ---
Pharmacy [facility] Pharmacy Service has performed discharge medication reconciliation and counseling for this patient. The patient's discharge medication list was reviewed for discrepancies and discrepancies were resolved. The patient was counseled on the following discharge medications and changes in medications for homegoing were reviewed. 1. KEFLEX 2.IRON The Reason for Use, instructions for use, and potential side effects were reviewed for all new medications. The patient's questions regarding all of their medications were answered. The patient was able to verbally demonstrate an understanding of their discharge medications. Medications at Discharge Home Medications cholecalciferol (vitamin D3) 50 mcg (2,000 unit) capsule 1,000 unit PO DAILY supplement 10/22/18 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 #1 ea 06/29/21 pantoprazole 20 mg tablet,delayed release (Protonix) 20 mg PO BID reflux 10/04/22 folic acid 1 mg tablet 2 mg PO DAILY SUPPLEMENT 11/17/22 methotrexate sodium 2.5 mg tablet 2.5 mg PO SA arthritis pain 11/17/22 gabapentin 800 mg tablet 800 mg PO TID disc degeneration 11/17/23 spironolactone 25 mg tablet 25 mg PO DAILY BP/water retention #30 tabs 11/17/23 aspirin 81 mg tablet,delayed release (Adult Aspirin Regimen) 81 mg PO DAILY heart health 01/04/24 metformin 500 mg tablet,extended release 24 hr 500 mg PO BID diabetes 01/05/24 clopidogrel 75 mg tablet 75 mg PO .COMPLEX #90 tabs 01/22/24 baclofen 10 mg tablet 5 - 10 mg PO TID PRN muscle spasm 02/20/24 carvedilol 3.125 mg tablet 3.125 mg PO BID 02/20/24 diphenhydramine HCl 25 mg capsule 25 mg PO QHS 02/20/24 fluticasone propionate 50 mcg/actuation nasal spray,suspension 2 spray intranasal DAILY 02/20/24 methadone 10 mg tablet 10 mg PO Q8H PRN pain 02/20/24 potassium chloride 20 mEq tablet,extended release(part/cryst) 20 meq PO DAILY supplement 02/20/24 prednisone 10 mg tablet 10 mg PO DAILY PRN FLARES 02/20/24 cephalexin 500 mg capsule 500 mg PO Q8 6 days #18 caps 02/22/24 ferrous gluconate 324 mg (37.5 mg iron) tablet 324 mg PO DAILY #30 tabs 02/22/24
--- NOTE | 2024-02-22 14:30 | PCM.DC.SUM ---
Providers Date of Admission: 02/20/24 Primary Care Physician: Dr. Margarita Drake DO Reason For Visit: RLE CELLULITIS Diagnosis Discharge Diagnosis (1) Cellulitis of leg, right: Status: Acute Code(s): L03.115 - Cellulitis of right lower limb Medications at Discharge Home Medications cholecalciferol (vitamin D3) 50 mcg (2,000 unit) capsule 1,000 unit PO DAILY supplement 10/22/18 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 #1 ea 06/29/21 pantoprazole 20 mg tablet,delayed release (Protonix) 20 mg PO BID reflux 10/04/22 folic acid 1 mg tablet 2 mg PO DAILY SUPPLEMENT 11/17/22 methotrexate sodium 2.5 mg tablet 2.5 mg PO SA arthritis pain 11/17/22 gabapentin 800 mg tablet 800 mg PO TID disc degeneration 11/17/23 spironolactone 25 mg tablet 25 mg PO DAILY BP/water retention #30 tabs 11/17/23 aspirin 81 mg tablet,delayed release (Adult Aspirin Regimen) 81 mg PO DAILY heart health 01/04/24 metformin 500 mg tablet,extended release 24 hr 500 mg PO BID diabetes 01/05/24 clopidogrel 75 mg tablet 75 mg PO .COMPLEX #90 tabs 01/22/24 baclofen 10 mg tablet 5 - 10 mg PO TID PRN muscle spasm 02/20/24 carvedilol 3.125 mg tablet 3.125 mg PO BID 02/20/24 diphenhydramine HCl 25 mg capsule 25 mg PO QHS 02/20/24 fluticasone propionate 50 mcg/actuation nasal spray,suspension 2 spray intranasal DAILY 02/20/24 methadone 10 mg tablet 10 mg PO Q8H PRN pain 02/20/24 potassium chloride 20 mEq tablet,extended release(part/cryst) 20 meq PO DAILY supplement 02/20/24 prednisone 10 mg tablet 10 mg PO DAILY PRN FLARES 02/20/24 cephalexin 500 mg capsule 500 mg PO Q8 6 days #18 caps 02/22/24 ferrous gluconate 324 mg (37.5 mg iron) tablet 324 mg PO DAILY #30 tabs 02/22/24 Hospital Course Operations None Procedures None Summary of Care Provided Minutes Spent on Discharge: 34 Hospital Course: Per HPI: BEN MAHARAJ, is a 78 F who came to ED for swelling, pain and redness of the right lower leg and foot for several days. She also felt chills and fever at home and sweating but did not measure her temperature. No nausea or vomiting. Prior to that, she completed antibiotic last week for UTI. She also had cardiac stent in the first week of January for CAD. In ED, initial vitals show blood pressure 99/56, heart rate 62/min with 1 BP 85/56 but BP responded well to TO IV fluid station 128/65. Heart rate in 60s. Afebrile in ED. Patient was given Unasyn and further admitted Hospital Course: 1. Right lower extremity cellulitis?78-year-old female presented to hospital with the Bactrim failure for cellulitis, this does not appear to be staph but strep so she was transition to p.o. Keflex which she has tolerated well and the redness has significantly improved and the swelling has gone down. She was able to walk better today and I discussed with her the possibility of discharge which she expressed understanding of the risk and benefits of going home and would like to go home today. Will continue with Keflex for another 6 days to complete 8 days of treatment. 2. Anemia?may have a component of iron deficiency to it as her TIBC, iron saturation, and iron overall low and her ferritin was normal in the setting of acute inflammation. Will place her on p.o. iron she did also have about an 8 pound weight gain while here secondary to IV fluids so there is likely dilutional component as well due to her anemia during his stay. I do recommend outpatient follow-up with her PCP in 3 to 5 days to monitor her hemoglobin if it continues to drop may need further workup. 3. Coronary artery disease status post stent, essential hypertension, hyperlipidemia, type 2 diabetes, GERD, Arnold-Chiari 1 malformation chronic medical conditions which complicate her care. Her home medications were continued where appropriate. Unfortunately because she had a stent in January she cannot stop her antiplatelet medications despite the drop in her hemoglobin. Physical Exam Narrative General: Alert, Oriented x3, Cooperative, No apparent distress HEENT: Atraumatic, PERRLA, EOMI, Normocephalic Oral: Moist Mucosa Neck: Supple, No JVD Lungs: Diminished, Normal air movement, No rhonchi, No wheeze, No rales Cardiovascular: Regular rate, Regular Rhythm, Normal S1, Normal S2, No murmurs Abdomen: Soft, Non Tender, Non-Distended, No Hepato-splenomegaly Extremities: No edema, Capillary Refill Less than 3 Seconds Skin: Right lower extremity redness is improving, no obvious area of abscess formation indicate staph infection Musculoskeletal: No Tenderness to Palpation of Joints or Extremities Neurological: No focal neurological deficits, Motor Exam 5/5 strength throughout, Sensory exam intact to light touch and pain Psych/Mental Status: Normal Affect, Appropriate Weight / BMI Weight Weight: 123 lb 0.287 oz Body Mass Index (BMI) 21.8 ABG / Lab / Microbiology Data 02/22/24 08:00 02/21/24 07:03 Laboratory: Laboratory Results - last 24 hr 02/21/24 17:00: Urine Color Yellow, Urine Clarity Clear, Urine pH 6.5, Ur Specific [place] 1.005, Urine Protein Negative, Urine Glucose (UA) Normal, Urine Ketones Negative, Urine Occult Blood Negative, Urine Nitrite Negative, Urine Bilirubin Negative, Urine Urobilinogen Normal, Ur Leukocyte Esterase Negative, Urine RBC Not Reportable, Urine WBC Not Reportable, Ur Squamous Epith Cells Not Reportable, Urine Bacteria Not Reportable, Urine Mucus Not Reportable 02/21/24 17:01: POC Glucose 119 H 02/21/24 21:46: POC Glucose 80 02/22/24 06:33: POC Glucose 82 02/22/24 08:00: WBC 3.8 L, RBC 2.64 L, Hgb 8.6 L, Hct 27.1 L, MCV 102.7 H, MCH 32.6 H, MCHC 31.7 L, RDW Std Deviation 53.5 H, RDW Coeff of Jaleel 14.5, Plt Count 235, MPV 10.2, Immature Gran % (Auto) 0.300, Neut % (Auto) 49.2, Lymph % (Auto) 40.4, [place] % (Auto) 5.3, Eos % (Auto) 3.7, Baso % (Auto) 1.1 H, Absolute Neuts (auto) 1.9 L, Absolute Lymphs (auto) 1.53, Nucleated RBC % 0, Iron 20 L, TIBC 203 L, Iron Saturation 9.9 L, Ferritin 117 02/22/24 11:01: POC Glucose 135 H Microbiology: Microbiology 02/20/24 13:21 Blood Culture (Wb) - Anticubital Left Blood Culture - Preliminary No growth in 48 hours. 02/20/24 13:10 Blood Culture (Wb) - Right Forearm Blood Culture - Preliminary No growth in 48 hours. D/C Instructions Discharge Diet: Low fat / Low cholesterol and Carb Control Diet Call your doctor if you observe: Fever of 101 or Higher, Shortness of breath, Dizziness, Fainting spells, Swelling in the ankles, Chest pain and Increased palpitations (irregular heartbeat) Meaningful Use Info Meaningful Use Meaningful Use Diagnoses (Choose all that apply): None applicable Ischemic Stroke Statin Dosing Therapy Reference: STATIN DOSE THERAPY REFERENCE: * Patients > 75 years receive moderate or high dose statin therapy. * Patients 75 years or YOUNGER should receive HIGH intensity statin dose unless contraindicated. You will be required to document reason for non-treatment if statin daily dose does not meet guidelines. HIGH DOSE STATIN THERAPY DAILY Atorvastatin > than or = to 40 mg Rosuvastatin > than or = to 20 mg Amlodipine + Atorvastatin > than or = to 2.5/40 mg Ezetimibe + Simvastatin 10/80 mg Simvastatin 80mg Discharge Plan Admission Admit Date/Time: 02/20/24 14:36 Attending Provider: Leo Park Primary Care Provider: Margarita Drake Consulting Providers: Everton Champagne Instructions Additional Instructions / Restrictions: Follow-up with your PCP in 3 to 5 days to recheck your hemoglobin and make sure that it is stabilized. He may be slightly iron deficient so I placed you on iron supplementation, your anemia could also be due to the fact that you received IV fluids today you are about 8 pounds heavier than when you were admitted because of that. If it continues to trend down, as discussed, you may need that he have stool tested for possible colonoscopy outpatient Dr. Drake's office is to call you back today with a follow up appointment, they are to get you in with [employer] [facility]ero Hicks is Dr. Drake can not see you herself Discharge Orders/Prescriptions Prescriptions: New cephalexin 500 mg Capsule 500 mg PO Q8 6 Days Qty: 18 0RF ferrous gluconate 324 mg (37.5 mg iron) tablet 324 mg PO DAILY Qty: 30 0RF Continued cholecalciferol (vitamin D3) 2,000 unit capsule 1,000 unit PO DAILY (DME) 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 See Rx Instructions .Route .MEDSUPPLY Qty: 1 0RF Rx Instructions: Wear at night. folic acid 1 mg tablet 2 mg PO DAILY methotrexate sodium 2.5 mg tablet 2.5 mg PO SA Rx Instructions: take 8 tablets per week gabapentin 800 mg tablet 800 mg PO TID pantoprazole [Protonix] 20 mg Tablet,Delayed Release (Dr/Ec) 20 mg PO BID aspirin [Adult Aspirin Regimen] 81 mg tablet,delayed release (DR/EC) 81 mg PO DAILY metformin 500 mg tablet extended release 24 hr 500 mg PO BID prednisone 10 mg tablet 10 mg PO DAILY PRN (Reason: FLARES) baclofen 10 mg tablet 5 - 10 mg PO TID PRN (Reason: muscle spasm) fluticasone propionate 50 mcg/actuation spray,suspension 2 spray INTRANASAL DAILY methadone 10 mg tablet 10 mg PO Q8H PRN (Reason: pain) diphenhydramine HCl 25 mg capsule 25 mg PO QHS Patient Comments: PT STATES SHE TAKES SIMPLY SLEEP AFTER LOOKING MED UP, IT IS DYPHENHYDRAMINE 25MG carvedilol 3.125 mg Tablet 3.125 mg PO BID potassium chloride 20 mEq tablet,ER particles/crystals 20 meq PO DAILY spironolactone 25 mg tablet 25 mg PO DAILY Qty: 30 6RF clopidogrel 75 mg tablet 75 mg PO .COMPLEX Qty: 90 3RF Rx Instructions: 75 mg orally take FOUR TABLETS (300mg) all at once TODAY for loading dose for heart stents; then take ONE tablet by mouth daily; STOP BRILINTA Discontinued sulfamethoxazole-trimethoprim [Bactrim DS] 800-160 mg tablet 1 tab PO Q12H 7 Days Qty: 14 0RF Patient Comments: PT STATES SHE ONLY TAKES 1 QHS Referrals / Follow Up: Margarita Drake DO [Primary Care Provider] - Within 1 Week Disposition Disposition (needs filled in before D/C Order can be placed): Home, Self Care Charges/Coding Visit Charges Inpatient E&M: 81318 Disch Hosp >30min
== END 2024-02-22 14:00 | disposition home or self-care (01) | DRG 603 ==
LOC: ED 14:47 → MS3 15:07
PROVIDERS: Admitting Provider Internal Medicine; Emergency Provider Emergency Medicine; PCP Internal Medicine; Visit Provider Family Medicine
DX: L03.115 Cellulitis of right lower limb (principal); I42.8 Other cardiomyopathies; I50.32 Chronic diastolic (congestive) heart failure; E11.42 Type 2 diabetes mellitus with diabetic polyneuropathy; D50.9 Iron deficiency anemia, unspecified; E78.5 Hyperlipidemia, unspecified; G89.4 Chronic pain syndrome; I11.0 Hypertensive heart disease with heart failure; Q07.00 Arnold-Chiari syndrome without spina bifida or hydrocephalus; M79.7 Fibromyalgia; I25.10 Atherosclerotic heart disease of native coronary artery without angina pectoris; K21.9 Gastro-esophageal reflux disease without esophagitis; R11.2 Nausea with vomiting, unspecified; R03.1 Nonspecific low blood-pressure reading; Z79.82 Long term (current) use of aspirin; Z79.84 Long term (current) use of oral hypoglycemic drugs; Z79.02 Long term (current) use of antithrombotics/antiplatelets; Z95.5 Presence of coronary angioplasty implant and graft; Z96.643 Presence of artificial hip joint, bilateral; Z96.651 Presence of right artificial knee joint
CPT/HCPCS: 36415; 80048; 80053; 81001; 82728; 82962; 83540; 83550; 83605; 83735; 85025; 85610; 85730; 87040; 87086; 93005; 94668; 97161; 97165; 99285; J7030; J7050; A4216; J0295

== ENCOUNTER 2024-02-28 08:00 | Outpatient (RCR) | payer MEDICARE, OTHER, SELFPAY ==
[2024-01-17 08:30] VITALS: BMI 19.5
--- NOTE | 2024-02-16 05:31 | CR.ITP_ITS ---
Exercise - Initial Assessment Visit Session #:: 9 Physician Prescribed Exercise Modalities: SciFit Stepper and SciFit Pro-II Ergometer Nutrition - Initial Assessment Weight Mgt (Other Care) Height: 5 ft 3 in Weight:: 115 lb 8 oz (Risk of malnutrition, difficulty gaining weight) BMI: 20.5 Psychosocial - Initial Assess Target Goals Target Goals Referral to Behavioral Health PS - Interventions: Yes: Attend Stress Management Classes and No: Referral to Behavioral Health if PHQ-9 score >9:, No: Referral to [facility] and No: Referral to Physician if PHQ-9 if score is 5-9: Patient Health Questionnaire PHQ-9 Screening 30-Day Re-eval Assessment: 1. Little interest or pleasure in doing things: Not at all 2. Feeling down, depressed, or hopeless: Not at all 3. Trouble falling or staying asleep, or sleeping too much: Not at all 4. Feeling tired or having little energy: Not at all 5. Poor appetite or overeating: Not at all 6. Feeling bad about yourself -- or that you are a failure or have let yourself or your family down: Not at all 7. Trouble concentrating on things, such as reading the newspaper or watching television: Not at all 8. Moving or speaking so slowly that other people could have noticed. Or the opposite - being so fidgety or restless that you have been moving around a lot more than usual: Not at all 9. Thoughts that you would be better off , or of hurting yourself in s ome way: Not at all How difficult have these problems made it for you to do your work, take care of things at home, or get along with other people?: Not difficult at all Total Score: 0 Self-Efficacy 6-Item Scale 30-Day Re-eval Assessment: We would like to know how confident you are in doing certain activities. Please select your confidence level for: Fatigue Select Number: 10 Physical Discomfort or Pain Select Number: 10 Emotional Distress Select Number: 10 Other Symptoms or Health Problems Select Number: 10 Different Tasks and Activities Select Number: 10 Medication Select Number: 10 Total Score:: 10 Nutrition Survey Nutrition Survey Instructions Scoring Instructions Exercise - 30-day Assessment Visit Date of Eval: 02/16/24 Session #:: 9 Physician Prescribed Exercise Modalities: SciFit Stepper and SciFit Pro-II Ergometer Frequency: 3x/week for 12 weeks [36 sessions] Intensity: 60-80% of age predicted maximum heart rate reserve Duration: 30 - 45 minutes Current METSs:: 3.0 increased from intitial 2.0 Target Heart Rate:: 91-105 Current RPE:: 13 Maximum Excercise HR:: 78 decreasing max HR with increase in METs Resting Blood Pressure: 90/50 Maximum Exercise Blood Pressure: 130/68 EKG Type: Sinus rhythm with occasional PVC Current Physical Activity or Exercising minutes: 45:20 Outcomes & Goals Goals:: Verbalizes understanding of THR, RPE & goal METS by session 6, Documents in home exercise log/reports 30 min aerobic 5 day/wk by DC and Demonstrates accurate pulse taking by DC Intervention & Plan Exercise Program Goals: Instruct on personal THR & RPE, Instruct on MET level & personal MET goal, Show patient to take own pulse /validate performance until accurate and Instruct on home exercise 30-day Reassessments 30 day Reassessments:: Progressing Physical Activity Home Exercise Physical Activity - Home Exercise: Safe Exercise, Warm-up, Self-monitoring, Cool-Down, Home Exercise > 30 min Daily and Sitting Time <3 hours/daily Outcomes & Goals Outcomes/Goals: Demonstrates correct Warm-up/exercise Cool-Down (S3) if = 2.5 METs, Verbalizes symptoms of exercise intolerance by Session 3 (S3) and Demonst rate safe equipment use (S3) & follows exercise prescrition (6) Intervention & Plan Plan/Intervention: Instruct warm-up & cool-down if exercising at > 2 METs, Instruct on symptoms of exercise intolerance & actions to take, Instruct & monitor on saf and Assess intial functional capacity & safety risk 30-day Reassessments 30 day Reassessments:: Met Exercise - 60-day Assessment Physician Prescribed Exercise Modalities: SciFit Stepper and SciFit Pro-II Ergometer Exercise - 90-day Assessment Physician Prescribed Exercise Modalities: SciFit Stepper and SciFit Pro-II Ergometer Exercise - Final/Discharge Physician Prescribed Exercise Modalities: SciFit Stepper and SciFit Pro-II Ergometer Nutrition - 30-Day Assessment Program Goals Nutrition Program Goals Patient has diagnosis of Hyperlipidemia (ICD E78)?: Yes Visit Date of Eval: 02/16/24 Session #:: 9 Cholesterol/Lipids (Other Core Measures) Determine presence & major risk factors that modify LDL goal: Hypertension or hypertensive medication and Age men > 45 years; women >/= 55 years Outcomes/Goals: Pt IDs own risk factors & lifestyle modifications by Session 10, Verbalizes symptoms of angina & response by session 3. and Pt independently manages Intervention/Plan: Instruct on personal lipid levels & lipid goals/NCEP guidelines and Instruct on cholesterol Referral to dietitian:: Yes 30-day Reassessments:: Progressing Diabetes (Other Core Measures) Diabetes Type: Diagnosis Type II ICD-10 E11 Insulin dependent injection/pump?: No Non-Insulin Dependent?: Yes Do you monitor your blood sugar at home?: No Referral to Diabetic Clinic:: Yes Intervention/Plan:: Refer to 30-day Reassessments:: Progressing Weight Mgt (Other Care) Not Applicable: No Height: 5 ft 3 in Weight:: 115 lb 8 oz (Risk of malnutrition, difficulty gaining weight) BMI: 20.5 Diagnosis Overweight/Obesity BMI> 30% ICD-10 E66: No Diagnosis High BMI/Morbid Obesity BMI> 35% ICD-10 Z68: No Outcomes/Goals: Pt sets, maintains & shows weight loss goal & trend during rehab Intervention/Plan: Instruct on ideal BMI & set weight loss goal w/patient 30 day Reassessments:: Progressing Reassessment Notes & Comments:: Refer to Nutrition Services for malnutrition risks Healthy Eating Habits Will attend diet classes:: Yes Outcomes/Goals:: Consume diet rich in vegs,fruits,whole grain/high fiber,fish,lean meat and Limit sat/trans fats,cholesterol & added salts & sugars Intervention/Plan:: Assess current eating habits 30-day Reassessments:: Progressing Education Gave educational materials for:: Healthy eating Nutrition - 60-Day Assessment Weight Mgt (Other Care) Height: 5 ft 3 in Weight:: 115 lb 8 oz (Risk of malnutrition, difficulty gaining weight) BMI: 20.5 Core - 30-Day Assessment Visit Date of Eval: 02/16/24 Session #:: 9 Medication Compliance Preventative Medication(s):: Aspirin, JOSY inhibitor, Clopidogrel/P2Y12 inhibit, Statin/lipid and Beta pato H/O mental health issues: depression, anxiety, or addiction?: No Doesn?t believe in the benefits of treatment?: No Believes medications are unnecessary or harmful?: No Has a concern about medication side effects?: No Expresses concern over the cost of medications?: No Outcomes/Goals: Verbalizes medications,desired effect & common side effects @ DC, Pt self-reports following medication regimen and Keeps card in wallet w/medications listed by DC Interventions/plans: Instruct on medication effects & side effects, Review medication list w/patient every two weeks and Instruct importance of taking meds as ordered & assist problem solving 30-day Reassessments:: Progressing Tobacco Use Tobacco Use: Non-smoker Hypertension Hypertension Diagnosis:: Hypertension ICD-10 I10 Resting Blood Pressure:: 90/50 [place] [employer] Hypertension Guidelines Peak Exercise Blood Pressure:: 130/68 Outcomes/Goals: Able to verbalize/achieve optimal blood pressure <130/80 and Incorporates diet changes & exercise for blood pressure control by DC Interventions/plan: Instruct on optimal blood pressure, hypertension & medications and Instruct on effects of sodium, alcohol, stress, exercise &hypertension 30 day Reassessments:: Met Tobacco Cessation Referral Smoking Cessation Referral:: No Individual Education/Counseling:: No Education Schedule Given:: Yes Psychosocial - 30-Day Assess VIsit Date of Eval: 02/16/24 Session #:: 9 Not Applicable: Yes History of previous Mental disease:: No Target Goals Target Goals Psychosocial Test Tool Used:: PHQ-9 Questionnaire phq-9 Severity Referral to Behavioral Health PS - Interventions: Yes: Attend Stress Management Classes and No: Referral to Behavioral Health if PHQ-9 score >9:, No: Referral to [facility] and No: Referral to Physician if PHQ-9 if score is 5-9: Outcomes/Goals: See list Psychosocial Outcomes/Goals:: ID's personal stressors & 2 strategies to manage stress by discharge Intervention/Plan: See List Interventions/Plan:: Assess stressors,coping strategies & signs of derpression on admission, Instruct/assist pt to develop coping & personal stress Mgt strategies, Instruct patient to recognize signs & symptoms of depression and Instruct patient to recog 30-day Reassessments: 30 day Reassessments:: Met Psychosocial - 60-Day Assess Target Goals Target Goals Referral to Behavioral Health PS - Interventions: Yes: Attend Stress Management Classes and No: Referral to Behavioral Health if PHQ-9 score >9:, No: Referral to [facility] and No: Referral to Physician if PHQ-9 if score is 5-9: Outcomes/Goals: See list Psychosocial Outcomes/Goals:: ID's personal stressors & 2 strategies to manage stress by discharge Psychosocial - 90-Day Assess Target Goals Target Goals Referral to Behavioral Health PS - Interventions: Yes: Attend Stress Management Classes and No: Referral to Behavioral Health if PHQ-9 score >9:, No: Referral to [facility] and No: Referral to Physician if PHQ-9 if score is 5-9: Psychosocial - Final Assessmen Target Goals Target Goals Referral to Behavioral Health PS - Interventions: Yes: Attend Stress Management Classes and No: Referral to Behavioral Health if PHQ-9 score >9:, No: Referral to [facility] and No: Referral to Physician if PHQ-9 if score is 5-9: Nutrition - 90-Day Assessment Weight Mgt (Other Care) Height: 5 ft 3 in Weight:: 115 lb 8 oz (Risk of malnutrition, difficulty gaining weight) BMI: 20.5 Nutrition - Final Assessment Weight Mgt (Other Care) Height: 5 ft 3 in Weight:: 115 lb 8 oz (Risk of malnutrition, difficulty gaining weight) BMI: 20.5
[2024-02-16 05:39] VITALS: BP 90/50; BMI 20.5
== END 2024-03-03 23:59 ==
LOC: CR 08:00
PROVIDERS: PCP Internal Medicine; Referring Provider Specialist; Visit Provider Specialist
DX: Z95.5 Presence of coronary angioplasty implant and graft (principal); I25.10 Atherosclerotic heart disease of native coronary artery without angina pectoris; R94.39 Abnormal result of other cardiovascular function study; R06.09 Other forms of dyspnea; R53.83 Other fatigue
CPT/HCPCS: 93798

== ENCOUNTER → 2024-03-18 | Outpatient (CLI) | payer MEDICARE, OTHER, SELFPAY ==
[2024-02-16 05:39] VITALS: BMI 20.5
[2024-03-18 13:06] LABS: Bacteria 0 SEEN /hpf (None Seen); Mucous, Urine 0 SEEN /hpf (<or=2+); Red Blood Cells-Urine 0 SEEN /hpf (0-5)
[2024-03-18 13:31] LABS: Color, Urine Yellow (Yellow); Glucose, Dipstick Normal (Normal); Ketone-Dipstick Negative (Negative); Leukocyte Esterase-Dipstick 25 /ul (Negative); Nitrite-Dipstick Negative (Negative); Occult Blood-Urine Negative /ul (Negative); Protein-Dipstick 15 mg/dl (Negative); Urine Bilirubin Dipstick Negative (Negative); Urine Clarity Sl. Cloudy (Clear); Urine Urobilinogen Normal (Normal)
[2024-03-18 13:49] LABS: Squamous Epithelial Cells - UA 0-5 SEEN /hpf (5-10); White Blood Cells 0-5 SEEN /hpf (0-5)
== END | disposition home or self-care (01) ==
LOC: LABSPEC 12:18
PROVIDERS: PCP Internal Medicine; Referring Provider Nurse Practitioner Family; Visit Provider Nurse Practitioner Family
DX: R30.0 Dysuria (principal)
CPT/HCPCS: 81001; 87086

== ENCOUNTER 2024-03-29 08:00 | Outpatient (RCR) | payer MEDICARE, OTHER, SELFPAY ==
[2024-02-16 05:39] VITALS: BMI 20.5
[2024-03-04 00:17] VITALS: BP 90/50
--- NOTE | 2024-03-18 12:53 | CR.ITP_ITS ---
Exercise - Initial Assessment Physician Prescribed Exercise Modalities: SciFit Stepper and SciFit Pro-II Ergometer Nutrition - Initial Assessment Weight Mgt (Other Care) Height: 5 ft 3 in Weight:: 117 lb BMI: 20.7 Psychosocial - Initial Assess Target Goals Target Goals Patient Health Questionnaire PHQ-9 Screening 60-Day Re-eval Assessment: 1. Little interest or pleasure in doing things: Not at all 2. Feeling down, depressed, or hopeless: Not at all 3. Trouble falling or staying asleep, or sleeping too much: Not at all 4. Feeling tired or having little energy: Not at all 5. Poor appetite or overeating: Not at all 6. Feeling bad about yourself -- or that you are a failure or have let yourself or your family down: Not at all 7. Trouble concentrating on things, such as reading the newspaper or watching television: Not at all 8. Moving or speaking so slowly that other people could have noticed. Or the opposite - being so fidgety or restless that you have been moving around a lot more than usual: Not at all 9. Thoughts that you would be better off , or of hurting yourself in some way: Not at all How difficult have these problems made it for you to do your work, take care of things at home, or get along with other people?: Not difficult at all Total Score: 0 Self-Efficacy 6-Item Scale 60-Day Re-eval Assessment: We would like to know how confident you are in doing certain activities. Please select your confidence level for: Fatigue Select Number: 10 Physical Discomfort or Pain Select Number: 10 Emotional Distress Select Number: 10 Other Symptoms or Health Problems Select Number: 10 Different Tasks and Activities Select Number: 10 Medication Select Number: 10 Total Score:: 10 Nutrition Survey Nutrition Survey Instructions Scoring Instructions Exercise - 30-day Assessment Physician Prescribed Exercise Modalities: SciFit Stepper and SciFit Pro-II Ergometer Exercise - 60-day Assessment Visit Date of Eval: 03/18/24 Session #:: 20 Physician Prescribed Exercise Modalities: SciFit Stepper and SciFit Pro-II Ergometer Frequency: 3x/week for 12 weeks [36 sessions] Intensity: 60-80% of age predicted maximum heart rate reserve Duration: 30 - 45 minutes Current METSs:: 3 Target Heart Rate:: 91-105 Current RPE:: 12-12.5 Maximum Excercise HR:: 83 Resting Blood Pressure: 112/58 Maximum Exercise Blood Pressure: 112/58 EKG Type: SR with rare PAC/PVC's and rare episodes of ectopic atrial runs Outcomes & Goals Goals:: Verbalizes understanding of THR, RPE & goal METS by session 6, Documents in home exercise log/reports 30 min aerobic 5 day/wk by DC, Demonstrates accurate pulse taking by DC and Other additional outcome/goals: see below Intervention & Plan Exercise Program Goals: Instruct on personal THR & RPE, Instruct on MET level & personal MET goal, Show patient to take own pulse /validate performance until accurate, Instruct on home exercise and Other additional plan/int 30-day Reassessments 30 day Reassessments:: Progressing Reassessment Notes & Comments:: THR explained Physical Activity Home Exercise Physical Activity - Home Exercise: Safe Exercise, Warm-up, Self-monitoring, Cool-Down, Home Exercise > 30 min Daily and Sitting Time <3 hours/daily Outcomes & Goals Outcomes/Goals: Demonstrates correct Warm-up/exercise Cool-Down (S3) if = 2.5 METs, Verbalizes symptoms of exercise intolerance by Session 3 (S3), Demonstrate safe equipment use (S3) & follows exercise prescrition (6) and Other: See below Intervention & Plan Plan/Intervention: Instruct warm-up & cool-down if exercising at > 2 METs, Instruct on symptoms of exercise intolerance & actions to take, Instruct & monitor on saf, Assess intial functional capacity & safety risk and Other See below 30-day Reassessments 30 day Reassessments:: Progressing Reassessment Notes & Comments:: cool down encouraged Exercise - 90-day Assessment Physician Prescribed Exercise Modalities: SciFit Stepper and SciFit Pro-II Ergometer Exercise - Final/Discharge Physician Prescribed Exercise Modalities: SciFit Stepper and SciFit Pro-II Ergometer Nutrition - 30-Day Assessment Weight Mgt (Other Care) Height: 5 ft 3 in Weight:: 117 lb BMI: 20.7 Nutrition - 60-Day Assessment Program Goals Nutrition Program Goals Patient has diagnosis of Hyperlipidemia (ICD E78)?: Yes Visit Date of Eval: 03/18/24 Session #:: 20 Cholesterol/Lipids (Other Core Measures) Determine presence & major risk factors that modify LDL goal: Hypertension or hypertensive medication, Low HDL cholesterol <40 mg/dL*, Family history of premature CHD in Male < 55 years: female <65 yearsFa and Age men > 45 years; women >/= 55 years Outcomes/Goals: Pt IDs own risk factors & lifestyle modifications by Session 10, Verbalizes symptoms of angina & response by session 3., Pt independently manages and Other Additional Outcomes/Goals: Intervention/Plan: Advocate for lipid panel cholesterol medication if applicable, Instruct on personal lipid levels & lipid goals/NCEP guidelines, Instruct on cholesterol and Other additional plan/int 30-day Reassessments:: Progressing Reassessment Notes & Comments:: pt to attend nutrition class Diabetes (Other Core Measures) Diabetes Type: Diagnosis Type II ICD-10 E11 Insulin dependent injection/pump?: No Non-Insulin Dependent?: Yes Do you monitor your blood sugar at home?: No Outcomes/Goals:: Able to state symptoms of, Able to state, Able to state and Other additional Intervention/Plan:: Instruct on, Refer to, Instruct on and Other 30-day Reassessments:: Met Weight Mgt (Other Care) Height: 5 ft 3 in Weight:: 117 lb BMI: 20.7 Diagnosis Overweight/Obesity BMI> 30% ICD-10 E66: No Diagnosis High BMI/Morbid Obesity BMI> 35% ICD-10 Z68: No Outcomes/Goals: Pt sets, maintains & shows weight loss goal & trend during rehab and Other additional outcomes/goals Intervention/Plan: Instruct on ideal BMI & set weight loss goal w/patient, Assist pt to ID & incorporate diet changes for weight loss by S9, Refer to Structured Weight Loss program as appropriate, Encourage goal of using 250- 300dcal per session for weight loss and Other additional plan/interventions 30 day Reassessments:: Met Healthy Eating Habits Will attend diet classes:: Yes Outcomes/Goals:: Consume diet rich in vegs,fruits,whole grain/high fiber,fish,lean meat, Limit sat/trans fats,cholesterol & added salts & sugars and Other additional outcome/goals: Intervention/Plan:: Assess current eating habits and Other Additional plan/interventions 30-day Reassessments:: Met Education Gave educational materials for:: Signs & symptoms of hypoglycemia, Signs & symptoms of hyperglycemia, Relate diabetes to coronary artery disease and Healthy eating Core - 60-Day Assessment Visit Date of Eval: 03/18/24 Session #:: 20 Medication Compliance Preventative Medication(s):: Aspirin, JOSY inhibitor, Clopidogrel/P2Y12 inhibit, Statin/lipid and Beta pato H/O mental health issues: depression, anxiety, or addiction?: No Doesn?t believe in the benefits of treatment?: No Believes medications are unnecessary or harmful?: No Has a concern about medication side effects?: No Expresses concern over the cost of medications?: No Outcomes/Goals: Verbalizes medications,desired effect & common side effects @ DC, Pt self-reports following medication regimen, Keeps card in wallet w/medications listed by DC and Other additional outcome/goals: Interventions/plans: Instruct on medication effects & side effects, Review medication list w/patient every two weeks, Instruct importance of taking meds as ordered & assist problem solving and Other additional 30-day Reassessments:: Met Tobacco Use Tobacco Use: Non-smoker Hypertension Hypertension Diagnosis:: Hypertension ICD-10 I10 Resting Blood Pressure:: 112/58 [place] [employer] Hypertension Guidelines Peak Exercise Blood Pressure:: 112/58 Outcomes/Goals: Able to verbalize/achieve optimal blood pressure <130/80, Incorporates diet changes & exercise for blood pressure control by DC and Other additional outcomes/goals Interventions/plan: Instruct on optimal blood pressure, hypertension & medications, Instruct on effects of sodium, alcohol, stress, exercise &hypertension and Other additional plan/interventions 30 day Reassessments:: Met Tobacco Cessation Referral Smoking Cessation Referral:: No Individual Education/Counseling:: No Education Schedule Given:: Yes Psychosocial - 30-Day Assess Target Goals Target Goals Outcomes/Goals: See list Psychosocial Outcomes/Goals:: ID's personal stressors & 2 strategies to manage stress by discharge and Other Additional outcome/goals: Psychosocial - 60-Day Assess VIsit Date of Eval: 03/18/24 Session #:: 20 History of previous Mental disease:: No Target Goals Target Goals Outcomes/Goals: See list Psychosocial Outcomes/Goals:: ID's personal stressors & 2 strategies to manage stress by discharge and Other Additional outcome/goals: Intervention/Plan: See List Interventions/Plan:: Assess stressors,coping strategies & signs of derpression on admission, Instruct/assist pt to develop coping & personal stress Mgt strategies, Refer to Behavioral Health if appropriate, Refer to Physician if appropriate, Instruct patient to recognize signs & symptoms of depression, Instruct patient to recog and Other additional plan/intervention 30-day Reassessments: 30 day Reassessments:: Met Psychosocial - 90-Day Assess Target Goals Target Goals Psychosocial - Final Assessmen Target Goals Target Goals Nutrition - 90-Day Assessment Weight Mgt (Other Care) Height: 5 ft 3 in Weight:: 117 lb BMI: 20.7 Nutrition - Final Assessment Weight Mgt (Other Care) Height: 5 ft 3 in Weight:: 117 lb BMI: 20.7
[2024-03-18 13:04] VITALS: BP 112/58; BMI 20.7
== END 2024-04-03 23:59 ==
LOC: CR 08:00
PROVIDERS: PCP Internal Medicine; Referring Provider Specialist; Visit Provider Specialist
DX: Z95.5 Presence of coronary angioplasty implant and graft (principal); I25.10 Atherosclerotic heart disease of native coronary artery without angina pectoris; R94.39 Abnormal result of other cardiovascular function study; R06.09 Other forms of dyspnea; R53.83 Other fatigue; R30.0 Dysuria
CPT/HCPCS: 81001; 87086; 93798

== ENCOUNTER 2024-03-30 08:50 | Inpatient (IN) | payer MEDICARE, OTHER, SELFPAY ==
[2024-03-18 13:04] VITALS: BMI 20.7
[2024-03-30] VITALS (7 sets, daily range): BP systolic 101–124; BP diastolic 53–74; PULSE 62–76; RESP 14–18; TEMP 36.6–37.8; O2SAT 92–99; BMI 19.8
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
--- NOTE | 2024-03-30 09:36 | RAD_ITS ---
STUDY: X-RAY - RIGHT KNEE REASON FOR EXAM: Female, 78 years old. Pain TECHNIQUE: 2 view(s) of the knee. COMPARISON: None. FINDINGS: There is no evidence of fracture or dislocation. The patient is status post right knee arthroplasty. The hardware is intact and alignment is satisfactory. There is a large joint effusion. There are no radiodense foreign bodies. RAD/Knee 1 or 2 Views IMPRESSION: No fracture or dislocation in the right knee. Status post right knee arthroplasty. Large joint effusion. Electronically Signed: Jose Patricia MD at 10:46 EDT ,
[2024-03-30] MEDS: Ondansetron 4 MG/2 ML Vial IV (10:00)
[2024-03-30] MEDS: Morphine 4 MG/ML Syringe IV (10:00)
[2024-03-30 10:08] LABS: Absolute Lymphocyte Count 1.65 X10^3/uL (0.83-4.51); Absolute Neutrophil Count 9.9 X10^3/uL (2.0-7.7); Basophil# 0.04 X10^3/uL; Basophil% 0.3 % (0-1); Eosinophil# 0.06 X10^3/uL; Eosinophils% 0.5 % (0-5); Hematocrit 36.5 % (37-47); Hemoglobin 11.9 g/dL (12.0-15.0); Lymphocyte # 1.65 X10^3/ul (0.83-4.51); Lymphocyte % 12.7 % (19-41); Mean Corp Hgb Conc 32.6 g/dL (32-36); Mean Corpuscular Hgb 32.7 pg (27.0-32.0); Mean Corpuscular Volume 100.3 fL (81-99); Mean Platelet Vol. 9.6 fl (6.2-12.0); Monocyte# 1.31 X10^3/uL; NRBC Flagged by Analyzer 0 % (0-5); Neutrophil # 9.91 X10^3/uL (2.7-7.7); Platelet Count 193 K/mm3 (150-450); RBC Distribution Width CV 14.4 % (11.6-14.6); RBC Distribution Width SD 51.3 fl (35.1-43.9); Red Blood Count 3.64 M/mm3 (4.2-5.4)
--- NOTE | 2024-03-30 10:11 | RAD_ITS ---
STUDY: X-RAY - LEFT KNEE REASON FOR EXAM: Female, 78 years old. Pain. TECHNIQUE: 2 view(s) of the knee. COMPARISON: 11/22/2016 FINDINGS: There are stable postsurgical changes from left knee arthroplasty with intact hardware and satisfactory alignment. There is no evidence of fracture or dislocation. There is a small joint effusion. There is soft tissue swelling noted. There are no radiodense foreign bodies. RAD/Knee 1 or 2 Views IMPRESSION: No fracture or dislocation. Stable postsurgical changes from left knee arthroplasty. Small joint effusion. Soft tissue swelling. Electronically Signed: Jose Patricia MD at 10:39 EDT ,
[2024-03-30 10:15] LABS: Anion Gap 5 (5-15); BUN 17 mg/dL (7-18); BUN/Creat Ratio 19.4 RATIO (10-20); Calcium,Total 8.4 mg/dL (8.5-10.1); Chloride 96 mmol/L (98-107); Creatinine, Serum 0.88 mg/dL (0.55-1.02); EST Glomerular Filtration Rate 66 mL/min (>60); Est Glom Filt Rate - Afr Amer 80 mL/min (>60); Estimated Creatinine Clearance 40.89 ml/min; Glucose 100 mg/dL (74-106); Potassium 4.3 mmol/L (3.5-5.1); Sodium Level 131 mmol/L (136-145)
[2024-03-30 10:50] LABS: Mucous, Urine 0 SEEN /hpf (<or=2+); Red Blood Cells-Urine 0 SEEN /hpf (0-5); Squamous Epithelial Cells - UA 0 SEEN /hpf (5-10)
[2024-03-30 10:52] LABS: Color, Urine Yellow (Yellow); Glucose, Dipstick Normal (Normal); Ketone-Dipstick Negative (Negative); Leukocyte Esterase-Dipstick 500 /ul (Negative); Nitrite-Dipstick Positive (Negative); Occult Blood-Urine 25 /ul (Negative); Protein-Dipstick 30 mg/dl (Negative); Urine Clarity Cloudy (Clear); Urine Urobilinogen Normal (Normal)
[2024-03-30 10:53] LABS: Urine Bilirubin Dipstick 1 mg/dL (Negative)
[2024-03-30 11:01] LABS: White Blood Cells >100 SEEN /hpf (0-5)
[2024-03-30 11:02] LABS: Bacteria 1+ /hpf (None Seen)
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
[2024-03-30] MEDS: Ceftriaxone 1 GM/50 ML BAG IV (12:04)
[2024-03-30] MEDS: Gabapentin 800 MG Tablet PO ×2 (14:19→22:53)
[2024-03-30] MEDS: Methadone 10 MG Tablet PO ×2 (14:22→23:42)
[2024-03-30] MEDS: Methotrexate 2.5 MG Tablet 20 MG PO (14:29)
[2024-03-30] MEDS: Acetaminophen 500 MG Tablet 1000 MG PO ×2 (15:18→22:58)
[2024-03-30 16:36] LABS: Bedside Glucose 123 mg/dL (74-106)
[2024-03-30] MEDS: NYSTATIN 500,000 UNIT/5 ML UDC 500000 UNIT PO ×2 (17:52→22:52)
[2024-03-30] MEDS: Menthol/Lanolin/Calamine/Znox 113 GM Tube 1 APPLIC TOPICAL (22:53)
[2024-03-30] MEDS: MELATONIN 3 MG TABLET PO (22:53)
[2024-03-30] MEDS: Pantoprazole Sodium 20 MG Tablet PO (22:58)
[2024-03-30] MEDS: Carvedilol 3.125 MG TABLET PO (23:06)
[2024-03-30] MEDS: Insulin Lispro 100 UNIT/ML INSULN.PEN SC (23:40)
[2024-03-31 00:06] LABS: Bedside Glucose 173 mg/dL (74-106)
[2024-03-31 03:16] VITALS: BP 122/58; PULSE 57; RESP 16; TEMP 36.6; O2SAT 98
--- NOTE | 2024-03-31 03:29 | EKG12_ITS ---
Test Reason : CHEST PAIN Blood Pressure : / mmHG Vent. Rate : 053 BPM Atrial Rate : 053 BPM P-R Int : 158 ms QRS Dur : 070 ms QT Int : 516 ms P-R-T Axes : 038 -08 062 degrees QTc Int : 484 ms Sinus bradycardia Low voltage QRS Inferior infarct (cited on or before 02-NOV-2022) Cannot rule out Anteroseptal infarct (cited on or before 02-NOV-2022) Abnormal ECG When compared with ECG of 20-FEB-2024 13:32, Nonspecific T wave abnormality no longer evident in Inferior leads Confirmed by YADIRA ARAGON, MICAELA ([id number]), editor book JAZ VOGEL ([id number]) on 04/05/2024 9:46:02 AM Also confirmed by YADIRA ARAGON, MICAELA ([id number]), JAZ Diana ([id number]) on 04/05/2024 11:00: 59 AM Referred By: Lauren Confirmed By:LISA MAY MD
[2024-03-31] MEDS: SimETHICONE 80 MG Chewable Tablet PO ×2 (04:41→21:47)
[2024-03-31 06:27] LABS: Absolute Lymphocyte Count 1.08 X10^3/uL (0.83-4.51); Absolute Neutrophil Count 10.1 X10^3/uL (2.0-7.7); Basophil# 0.01 X10^3/uL; Basophil% 0.1 % (0-1); Eosinophil# 0.07 X10^3/uL; Eosinophils% 0.6 % (0-5); Hemoglobin 9.5 g/dL (12.0-15.0); Lymphocyte # 1.08 X10^3/ul (0.83-4.51); Lymphocyte % 8.9 % (19-41); Mean Corp Hgb Conc 31.7 g/dL (32-36); Mean Corpuscular Hgb 31.7 pg (27.0-32.0); Mean Platelet Vol. 9.9 fl (6.2-12.0); Monocyte# 0.78 X10^3/uL; Monocyte% 6.4 % (0-10); NRBC Flagged by Analyzer 0 % (0-5); Neutrophil % 83.4 % (47-70); Platelet Count 157 K/mm3 (150-450); RBC Distribution Width CV 14.4 % (11.6-14.6); RBC Distribution Width SD 51.3 fl (35.1-43.9); White Blood Count 12.1 K/mm3 (4.4-11.0)
[2024-03-31 06:51] LABS: Anion Gap 2 (5-15); BUN 20 mg/dL (7-18); BUN/Creat Ratio 28.1 RATIO (10-20); Calcium,Total 7.4 mg/dL (8.5-10.1); Chloride 98 mmol/L (98-107); Creatinine, Serum 0.71 mg/dL (0.55-1.02); EST Glomerular Filtration Rate 84 mL/min (>60); Est Glom Filt Rate - Afr Amer 101 mL/min (>60); Glucose 114 mg/dL (74-106); Magnesium 1.6 mg/dL (1.6-2.6); Phosphorus 3.7 mg/dL (2.5-4.9); Potassium 4.6 mmol/L (3.5-5.1); Sodium Level 130 mmol/L (136-145)
[2024-03-31] MEDS: Gabapentin 800 MG Tablet PO ×3 (06:57→21:46)
[2024-03-31] MEDS: Acetaminophen 500 MG Tablet 1000 MG PO ×3 (06:58→21:50)
[2024-03-31 07:32] LABS: Bedside Glucose 110 mg/dL (74-106)
--- NOTE | 2024-03-31 07:38 | PN.HOSP_ITS ---
Reason for Visit Reason for Visit: Diagnoses Pain in right knee (03/30/24) Pain in left knee (03/30/24) Urinary tract infection, site not specified (03/30/24) Subjective Subjective Patient seen admitted to improvement in her leg pain. She is now able to bend the knees. Objective Data Objective Data Vital Signs: Vital Signs Temp Pulse Resp BP Pulse Ox O2 Del Method 97.8 F 57 L 16 122/58 H 98 Room Air 03/31/24 03:16 03/31/24 03:16 03/31/24 03:16 03/31/24 03:16 03/31/24 03:16 03/31/24 03:16 Oxygen Delivery Method Room Air Weight: 51.392 kg Body Mass Index (BMI) 20.0 Intake & Output: Intake and Output for Last 24 Hours 03/29/24 03/30/24 03/31/24 23:59 23:59 23:59 Intake Total 300 / 300 Output Total 125 / 125 Balance 300 / 300 -125 / -125 Lab / Micro Data 03/31/24 06:02 03/31/24 06:02 Labs: Laboratory Results - last 24 hr 03/30/24 09:50: WBC 13.0 H, RBC 3.64 L, Hgb 11.9 L, Hct 36.5 L, MCV 100.3 H, MCH 32.7 H, MCHC 32.6, RDW Std Deviation 51.3 H, RDW Coeff of Jaleel 14.4, Plt Count 193, MPV 9.6, Immature Gran % (Auto) 0.500, Neut % (Auto) 76.0 H, Lymph % (Auto) 12.7 L, [place] % (Auto) 10.0, Eos % (Auto) 0.5, Baso % (Auto) 0.3, Absolute Neuts (auto) 9.9 H, Absolute Lymphs (auto) 1.65, Nucleated RBC % 0, Sodium 131 L, Potassium 4.3, Chloride 96 L, Carbon Dioxide 30.0, Anion Gap 5, BUN 17, Creatinine 0.88, Estim Creat Clear Calc 40.89, Est GFR (MDRD) Af Amer 80, Est GFR (MDRD) Non-Af 66, BUN/Creatinine Ratio 19.4, Glucose 100, Calcium 8.4 L 03/30/24 10:45: Urine Color Yellow, Urine Clarity Cloudy, Urine pH 6.0, Ur Specific [place] 1.010, Urine Protein 30 H, Urine Glucose (UA) Normal, Urine Ketones Negative, Urine Occult Blood 25 H, Urine Nitrite Positive H, Urine Bilirubin 1 H, Urine Urobilinogen Normal, Ur Leukocyte Esterase 500 H, Urine RBC 0 SEEN, Urine WBC >100 SEEN, Ur Squamous Epith Cells 0 SEEN, Urine Bacteria 1+, Urine Mucus 0 SEEN 03/30/24 16:16: POC Glucose 123 H 03/30/24 23:04: POC Glucose 173 H 03/31/24 06:02: WBC 12.1 H, RBC 3.00 L, Hgb 9.5 L, Hct 30.0 L, MCV 100.0 H, MCH 31.7, MCHC 31.7 L, RDW Std Deviation 51.3 H, RDW Coeff of Jaleel 14.4, Plt Count 157, MPV 9.9, Immature Gran % (Auto) 0.600, Neut % (Auto) 83.4 H, Lymph % (Auto) 8.9 L, [place] % (Auto) 6.4, Eos % (Auto) 0.6, Baso % (Auto) 0.1, Absolute Neuts (auto) 10.1 H, Absolute Lymphs (auto) 1.08, Nucleated RBC % 0, Sodium 130 L, Potassium 4.6, Chloride 98, Carbon Dioxide 30.0, Anion Gap 2 L, BUN 20 H, Creatinine 0.71, Estim Creat Clear Calc 45.50, Est GFR (MDRD) Af Amer 101, Est GFR (MDRD) Non-Af 84, BUN/Creatinine Ratio 28.1 H, Glucose 114 H, Calcium 7.4 L, Phosphorus 3.7, Magnesium 1.6 03/31/24 06:56: POC Glucose 110 H Radiography Diagnostic Testing: Radiology Impression Knee X-Ray 03/30/24 09:36 IMPRESSION: No fracture or dislocation in the right knee. Status post right knee arthroplasty. Large joint effusion. Electronically Signed: Jose Patricia MD at 10:46 EDT , Knee X-Ray 03/30/24 10:11 IMPRESSION: No fracture or dislocation. Stable postsurgical changes from left knee arthroplasty. Small joint effusion. Soft tissue swelling. Electronically Signed: Jose Patricia MD at 10:39 EDT , Physical Exam Narrative GENERAL: cooperative HEENT: Atraumatic; normocephalic EYES; Anicteric, Normal Conjunctiva NECK; supple, normal thyroid, RESPIRATORY: Diminished to auscultation CARDIOVASCULAR: Regular S1 S2, GI: soft, normoactive bowel sounds, : No Renal angle tenderness; EXTREMITIES: No edema, no clubbing, MUSCULOSKELETAL: Flocculence in both knees. NEURO: Awake; no lateralizing signs. SKIN: No Rash PSYCH; Flat affect Assessment & Plan Assessment/Plan (1) UTI (urinary tract infection): (2) Bilateral knee pain: PLAN: Plan Patient is an 78-year-old lady admitted with generalized weakness found to have acute cystitis admitted to regular nursing floor for further management 1. Acute cystitis ? Admitted to regular nursing floor started on ceftriaxone cultures sent we will plan to adjust antibiotic therapy based on culture result ? 03/31/2024; remains on antibiotic therapy cultures pending 2. Generalized osteoarthritis ? With severe bilateral knee pain and swelling. Patient admitted to regular nursing floor. Did resume home meds. Plan is to consult orthopedic surgery on 04/01/2024 for possible joint aspiration (no orthopedic coverage on 03/30 and 03/31/2024 ? 03/31/2024; patient experiencing improvement in her symptoms 3. Physical deconditioning as a result of significant knee pain - Requested for PT OT eval and nephrology social worker to assist with discharge planning 4. Anemia - Secondary to chronic disorder monitoring H&H and transfuse if patient becomes symptomatic or hemoglobin falls below 7 5. Diabetes mellitus type II -patient's oral hypoglycemics held. Placed on Accu-Cheks a.c. and at bedtime and covered with sliding scale insulin 6. Hypertension - Blood pressure controlled, home medications continued with dose adjustment as needed 7. Coronary artery disease ? With history of angioplasty and stenting of the LAD on 01/05/2024. Patient is on guideline directed medical therapy 8. History of bilateral pulmonary embolism ? Patient completed treatment with systemic anticoagulation 9. GERD ? On PPI 10. Rheumatoid arthritis ? Patient is on methotrexate q. weekly 11. Fibromyalgia with chronic pain syndrome ? Did continue home medication regimen 12. History of Arnold-Chiari malformation ? With previous up occipital decompression with posterior aspect of C1 ring resection 14. Hyponatremia ? Patient diuretic therapy being held repeat BMP ordered in a.m. ? 03/31/2024; patient sodium levels remain low we will continue holding her diuretics and in addition add fluid restriction 14. DVT prophylaxis ? SC Lovenox Time spent in the patient's overall evaluation,decision-making process, review of diagnostic data, adjustment of management, discussion with other providers, nursing nursing and ancillary staff involved in patient's care documentation, 36 Charges/Coding Visit Charges Inpatient E&M: 01995 Subs Hosp L2
[2024-03-31 08:48] VITALS: BP 116/60; PULSE 61; RESP 18; TEMP 36.7; O2SAT 99
[2024-03-31] MEDS: Potassium Chloride Oral Tablet 20 MEQ PO (09:04)
[2024-03-31] MEDS: Aspirin E.C. 81 MG Tablet PO (09:04)
[2024-03-31] MEDS: Folic Acid 1 MG Tablet 2 MG PO (09:05)
[2024-03-31] MEDS: DULoxetine Hcl 60 MG Capsule PO (09:06)
[2024-03-31] MEDS: Menthol/Lanolin/Calamine/Znox 113 GM Tube 1 APPLIC TOPICAL ×2 (09:06→21:48)
[2024-03-31] MEDS: Multivitamins,Ther W-Minerals Tablet 1 TABLET PO (09:06)
[2024-03-31] MEDS: Carvedilol 3.125 MG TABLET PO (09:06)
[2024-03-31] MEDS: amLODIPine 10 MG Tablet PO (09:07)
[2024-03-31] MEDS: Clopidogrel Bisulfate 75 MG Tablet PO (09:07)
[2024-03-31] MEDS: NYSTATIN 500,000 UNIT/5 ML UDC 500000 UNIT PO ×4 (09:07→21:48)
[2024-03-31] MEDS: Pantoprazole Sodium 20 MG Tablet PO ×2 (09:08→21:49)
[2024-03-31] MEDS: Lisinopril 20 MG Tablet PO (09:08)
[2024-03-31] MEDS: Methadone 10 MG Tablet PO ×2 (09:17→21:47)
[2024-03-31] MEDS: Enoxaparin 40 MG/0.4 ML Syringe SC (10:21)
[2024-03-31] MEDS: Ceftriaxone 1 GM/50 ML BAG IV (10:22)
[2024-03-31] MEDS: 0.9% Normal Saline (250mL Bag) 250 ML 15 ML IV (10:23)
[2024-03-31] MEDS: Spironolactone 25 MG Tablet PO (11:13)
[2024-03-31 12:26] LABS: Bedside Glucose 127 mg/dL (74-106)
[2024-03-31 13:21] VITALS: O2SAT 93
[2024-03-31 14:00] VITALS: BP 100/58; PULSE 70; RESP 18; TEMP 36.8; O2SAT 98
[2024-03-31 16:58] LABS: Bedside Glucose 139 mg/dL (74-106)
[2024-03-31 21:35] VITALS: BP 114/62; PULSE 58; RESP 16; TEMP 36.8; O2SAT 95
[2024-03-31] MEDS: Insulin Lispro 100 UNIT/ML INSULN.PEN SC (21:45)
[2024-03-31] MEDS: Senna/Docusate Sodium 1 Tablet 2 TABLET PO (21:46)
[2024-03-31] MEDS: MELATONIN 3 MG TABLET PO (21:47)
[2024-03-31 23:29] LABS: Bedside Glucose 150 mg/dL (74-106)
[2024-04-01 02:50] VITALS: BP 122/58; PULSE 57; RESP 18; TEMP 36.6; O2SAT 96
[2024-04-01 05:17] LABS: Absolute Lymphocyte Count 0.64 X10^3/uL (0.83-4.51); Absolute Neutrophil Count 8.6 X10^3/uL (2.0-7.7); Basophil# 0.01 X10^3/uL; Basophil% 0.1 % (0-1); Hematocrit 31.5 % (37-47); Hemoglobin 10.3 g/dL (12.0-15.0); Lymphocyte # 0.64 X10^3/ul (0.83-4.51); Lymphocyte % 6.7 % (19-41); Mean Corp Hgb Conc 32.7 g/dL (32-36); Mean Corpuscular Hgb 32.5 pg (27.0-32.0); Mean Corpuscular Volume 99.4 fL (81-99); Mean Platelet Vol. 10.1 fl (6.2-12.0); Monocyte# 0.27 X10^3/uL; Monocyte% 2.8 % (0-10); NRBC Flagged by Analyzer 0 % (0-5); Neutrophil # 8.59 X10^3/uL (2.7-7.7); Neutrophil % 90.1 % (47-70); Platelet Count 177 K/mm3 (150-450); RBC Distribution Width CV 13.7 % (11.6-14.6); RBC Distribution Width SD 49.1 fl (35.1-43.9); Red Blood Count 3.17 M/mm3 (4.2-5.4); White Blood Count 9.5 K/mm3 (4.4-11.0)
[2024-04-01 05:34] LABS: Anion Gap 5 (5-15); BUN 15 mg/dL (7-18); BUN/Creat Ratio 25.7 RATIO (10-20); Calcium,Total 8.2 mg/dL (8.5-10.1); Chloride 96 mmol/L (98-107); Creatinine, Serum 0.58 mg/dL (0.55-1.02); EST Glomerular Filtration Rate 106 mL/min (>60); Est Glom Filt Rate - Afr Amer 128 mL/min (>60); Glucose 154 mg/dL (74-106); Potassium 4.5 mmol/L (3.5-5.1); Sodium Level 128 mmol/L (136-145)
[2024-04-01] MEDS: Acetaminophen 500 MG Tablet 1000 MG PO ×3 (05:37→22:34)
[2024-04-01] MEDS: Gabapentin 800 MG Tablet PO ×3 (05:37→22:34)
[2024-04-01 07:04] LABS: Bedside Glucose 145 mg/dL (74-106)
[2024-04-01 07:49] VITALS: O2SAT 92
[2024-04-01 08:00] VITALS: BP 140/65; PULSE 54; RESP 18; TEMP 36.6; O2SAT 95
[2024-04-01] MEDS: Menthol/Lanolin/Calamine/Znox 113 GM Tube 1 APPLIC TOPICAL ×2 (08:02→22:39)
[2024-04-01] MEDS: NYSTATIN 500,000 UNIT/5 ML UDC 500000 UNIT PO ×4 (08:02→22:35)
[2024-04-01] MEDS: Spironolactone 25 MG Tablet PO (08:03)
[2024-04-01] MEDS: Lisinopril 20 MG Tablet PO (08:03)
[2024-04-01] MEDS: Enoxaparin 40 MG/0.4 ML Syringe SC (08:03)
[2024-04-01] MEDS: Folic Acid 1 MG Tablet 2 MG PO (08:04)
[2024-04-01] MEDS: amLODIPine 10 MG Tablet PO (08:04)
[2024-04-01] MEDS: Aspirin E.C. 81 MG Tablet PO (08:04)
[2024-04-01] MEDS: DULoxetine Hcl 60 MG Capsule PO (08:04)
[2024-04-01] MEDS: Multivitamins,Ther W-Minerals Tablet 1 TABLET PO (08:04)
[2024-04-01] MEDS: Pantoprazole Sodium 20 MG Tablet PO ×2 (08:04→22:34)
[2024-04-01] MEDS: Carvedilol 3.125 MG TABLET PO (08:04)
[2024-04-01] MEDS: Clopidogrel Bisulfate 75 MG Tablet PO (08:05)
[2024-04-01] MEDS: Potassium Chloride Oral Tablet 20 MEQ PO (08:05)
[2024-04-01] MEDS: Methadone 10 MG Tablet PO ×2 (08:14→22:35)
--- NOTE | 2024-04-01 09:15 | PN.HOSP_ITS ---
Subjective Subjective Doing well, no issues overnight. States that her knee pain is little bit better today. Will see how she does with physical therapy Objective Data Objective Data Vital Signs: Vital Signs Temp Pulse Resp BP Pulse Ox O2 Del Method 97.9 F 54 L 18 140/65 H 95 Room Air 04/01/24 08:00 04/01/24 08:00 04/01/24 08:00 04/01/24 08:00 04/01/24 08:00 04/01/24 08:00 Oxygen Delivery Method Room Air Weight: 113 lb 4.8 oz Body Mass Index (BMI) 20.0 Intake & Output: Intake and Output for Last 24 Hours 03/31/24 04/01/24 04/02/24 03:59 03:59 03:59 Intake Total 300 / 300 550 / 550 621 / 621 Output Total 725 / 725 450 / 450 Balance 300 / 300 -175 / -175 171 / 171 Lab / Micro Data 04/01/24 05:05 04/01/24 05:05 Labs: Laboratory Results - last 24 hr 03/31/24 12:06: POC Glucose 127 H 03/31/24 16:36: POC Glucose 139 H 03/31/24 21:43: POC Glucose 150 H 04/01/24 05:05: WBC 9.5, RBC 3.17 L, Hgb 10.3 L, Hct 31.5 L, MCV 99.4 H, MCH 32.5 H, MCHC 32.7, RDW Std Deviation 49.1 H, RDW Coeff of Jaleel 13.7, Plt Count 177, MPV 10.1, Immature Gran % (Auto) 0.300, Neut % (Auto) 90.1 H, Lymph % (Auto) 6.7 L, [place] % (Auto) 2.8, Eos % (Auto) 0.0, Baso % (Auto) 0.1, Absolute Neuts (auto) 8.6 H, Absolute Lymphs (auto) 0.64 L, Nucleated RBC % 0, Sodium 128 L, Potassium 4.5, Chloride 96 L, Carbon Dioxide 27.0, Anion Gap 5, BUN 15, Creatinine 0.58, Estim Creat Clear Calc 45.50, Est GFR (MDRD) Af Amer 128, Est GFR (MDRD) Non-Af 106, BUN/Creatinine Ratio 25.7 H, Glucose 154 H, Calcium 8.2 L 04/01/24 05:34: POC Glucose 145 H Micro: Microbiology 03/30/24 10:45 Urine, Clean Catch Urine Culture - Final Escherichia coli Physical Exam Narrative General: Alert, Oriented x3, Cooperative, No apparent distress HEENT: Atraumatic, PERRLA, EOMI, Normocephalic Oral: Moist Mucosa Neck: Supple, No JVD Lungs: Diminished, Normal air movement, No rhonchi, No wheeze, No rales Cardiovascular: Regular rate, Regular Rhythm, Normal S1, Normal S2, No murmurs Abdomen: Soft, Non Tender, Non-Distended, No Hepato-splenomegaly Extremities: No edema, Capillary Refill Less than 3 Seconds Skin: No rashes, No breakdown Musculoskeletal: Bilateral knees are not tender no erythema redness, signs of previous knee replacements bilaterally Neurological: No focal neurological deficits, Motor Exam 5/5 strength throughout, Sensory exam intact to light touch and pain Psych/Mental Status: Normal Affect, Appropriate Assessment & Plan Assessment/Plan (1) UTI (urinary tract infection): (2) Bilateral knee pain: PLAN: Plan 1. Acute UTI due to a pansensitive E. coli with debility and osteoarthritis ? Will transition to p.o. antibiotics ? PT/OT ? She refuses shelter placement ? She does have significant comorbidities for her debility secondary to chronic neck and back pain as well as a history of Arnold-Chiari malformation. She is also had bilateral hip and knee replacements as well as multiple back surgeries. She will always be high risk for readmission especially since she refuses shelter placement 2. CAD status post stent/essential HTN/HLD ? Continue with aspirin and Plavix ? Continue with Coreg, will monitor her blood pressures and make adjustments as necessary ? She does have a history of Takotsubo cardiomyopathy echo in 2019 with an EF of 65% and stage I diastolic dysfunction ? Continue with statin 3. DM2 ? Hold metformin ? Continue sliding scale insulin ? Accu-Cheks ACHS ? Will monitor make adjustments as necessary 4. GERD ? Stable ? Continue with PPI DVT: Lovenox Charges/Coding Visit Charges Inpatient E&M: 50001 Subs Hosp L2
[2024-04-01] MEDS: Cefdinir 300 MG Capsule PO ×2 (09:57→22:35)
[2024-04-01 11:27] LABS: Bedside Glucose 143 mg/dL (74-106)
--- NOTE | 2024-04-01 12:30 | CASEMGMT ---
INDRA CAMERON Assessment: Face to Face with pt for initial transition planning/care coordination assessment. INDRA CAMERON introduced self and role at [facility], pt voices understanding and consents to assessment. Pt is A&O x4 and answers all questions appropriately at this time. Pt sitting up in bed in no distress finishing ice cream. Care providers, pharmacy, and demographics verified/updated. Admitting Dx: UTI Strata Score: 3 PCP:Noelle, pt states she is switching to Dr.Oleghe madrid Specialists:Zulma, cardio; Ina neuro; Pan, pain mgmt; Suhas, ENT; Eddy, rheum; Ana Lilia, pod Preferred Pharmacy: [facility] Insurance: Appticles, Second Decimal Prescription Benefit: yes LNOK: Rj Katz, vasquez other Living Arrangements: Pt lives alone in a mobile home with 2 steps to enter with a rail. Pt reports she is I in ADL's and IADL's and denies concerns at home. Transportation: Pt drives self and denies concerns with transportation. DME:rollator, cane, raised toilet seat, shower chair, BGM with sufficient strips and lancets, pox HHC/SNF: Denies hx of Pt states no concerns with going home at time of dc. Pt reports she was attending cardiac rehab prior to this hospitalization and she will resume this upon dc. Pt states no further concerns/needs. CM to follow. Advised pt to ask CM if any further question/concerns/needs arise, voices understanding. Pt Goal: Home with resuming cardiac rehab Plan: Home with resuming cardiac rehab Fred BURRELL CM
[2024-04-01 14:10] VITALS: BP 112/56; PULSE 57; RESP 18; TEMP 36.8; O2SAT 94
[2024-04-01 16:20] LABS: Bedside Glucose 126 mg/dL (74-106)
[2024-04-01 20:35] VITALS: BP 120/58; PULSE 55; RESP 18; TEMP 36.8; O2SAT 97
[2024-04-01] MEDS: MELATONIN 3 MG TABLET PO (22:35)
[2024-04-01] MEDS: 0.9% Saline Lock 10 ML Syringe IV (22:36)
[2024-04-01 22:55] VITALS: BP 128/63; PULSE 60; RESP 18; TEMP 36.5; O2SAT 98
[2024-04-02 00:21] LABS: Bedside Glucose 137 mg/dL (74-106)
--- NOTE | 2024-04-02 05:41 | EKG12_ITS ---
Test Reason : CHEST PAIN Blood Pressure : / mmHG Vent. Rate : 059 BPM Atrial Rate : 059 BPM P-R Int : 164 ms QRS Dur : 072 ms QT Int : 450 ms P-R-T Axes : 032 -23 055 degrees QTc Int : 445 ms Sinus bradycardia Low voltage QRS Septal infarct , age undetermined Inferior infarct , age undetermined Abnormal ECG When compared with ECG of 31-MAR-2024 03:29, MANUAL COMPARISON REQUIRED, DATA IS UNCONFIRMED Confirmed by YADIRA ARAGON, MICAELA ([id number]), acquisitions editor JAZ VOGEL ([id number]) on 04/05/2024 9:40:17 AM Referred By: GEOFFREY Confirmed By:LISA MAY MD
[2024-04-02 05:45] VITALS: BP 145/68; PULSE 57; RESP 18; TEMP 36.7; O2SAT 97
[2024-04-02] MEDS: Acetaminophen 500 MG Tablet 1000 MG PO (05:57)
[2024-04-02] MEDS: Gabapentin 800 MG Tablet PO (05:57)
[2024-04-02 06:32] VITALS: BP 135/64; PULSE 56
[2024-04-02] MEDS: Nitroglycerin (INPATIENT USE) 0.4 MG TAB.SUBL SL (06:32)
[2024-04-02 06:43] LABS: Absolute Lymphocyte Count 1.28 X10^3/uL (0.83-4.51); Basophil# 0.01 X10^3/uL; Basophil% 0.2 % (0-1); Eosinophil# 0.04 X10^3/uL; Eosinophils% 0.6 % (0-5); Hematocrit 33.6 % (37-47); Hemoglobin 10.8 g/dL (12.0-15.0); Lymphocyte # 1.28 X10^3/ul (0.83-4.51); Lymphocyte % 19.7 % (19-41); Mean Corp Hgb Conc 32.1 g/dL (32-36); Mean Corpuscular Hgb 31.9 pg (27.0-32.0); Mean Corpuscular Volume 99.1 fL (81-99); Monocyte# 0.19 X10^3/uL; Monocyte% 2.9 % (0-10); NRBC Flagged by Analyzer 0 % (0-5); Neutrophil # 4.96 X10^3/uL (2.7-7.7); Neutrophil % 76.3 % (47-70); Platelet Count 251 K/mm3 (150-450); RBC Distribution Width CV 13.8 % (11.6-14.6); RBC Distribution Width SD 49.5 fl (35.1-43.9); Red Blood Count 3.39 M/mm3 (4.2-5.4); White Blood Count 6.5 K/mm3 (4.4-11.0)
[2024-04-02 07:42] LABS: Anion Gap 5 (5-15); BUN 10 mg/dL (7-18); BUN/Creat Ratio 18.7 RATIO (10-20); Calcium,Total 8.8 mg/dL (8.5-10.1); Chloride 99 mmol/L (98-107); Creatinine, Serum 0.54 mg/dL (0.55-1.02); EST Glomerular Filtration Rate 116 mL/min (>60); Est Glom Filt Rate - Afr Amer 141 mL/min (>60); Glucose 109 mg/dL (74-106); Potassium 4.5 mmol/L (3.5-5.1); Sodium Level 130 mmol/L (136-145)
[2024-04-02 08:00] VITALS: BP 144/56; PULSE 61; RESP 18; TEMP 36.8; O2SAT 96
[2024-04-02] MEDS: NYSTATIN 500,000 UNIT/5 ML UDC 500000 UNIT PO (08:04)
[2024-04-02] MEDS: Pantoprazole Sodium 20 MG Tablet PO (08:04)
[2024-04-02] MEDS: Enoxaparin 40 MG/0.4 ML Syringe SC (08:04)
[2024-04-02] MEDS: Lisinopril 20 MG Tablet PO (08:05)
[2024-04-02] MEDS: Carvedilol 3.125 MG TABLET PO (08:05)
[2024-04-02] MEDS: Folic Acid 1 MG Tablet 2 MG PO (08:05)
[2024-04-02] MEDS: Aspirin E.C. 81 MG Tablet PO (08:05)
[2024-04-02] MEDS: Menthol/Lanolin/Calamine/Znox 113 GM Tube 1 APPLIC TOPICAL (08:05)
[2024-04-02] MEDS: Multivitamins,Ther W-Minerals Tablet 1 TABLET PO (08:05)
[2024-04-02] MEDS: amLODIPine 10 MG Tablet PO (08:05)
[2024-04-02] MEDS: Potassium Chloride Oral Tablet 20 MEQ PO (08:05)
[2024-04-02] MEDS: DULoxetine Hcl 60 MG Capsule PO (08:05)
[2024-04-02] MEDS: Clopidogrel Bisulfate 75 MG Tablet PO (08:05)
[2024-04-02] MEDS: Spironolactone 25 MG Tablet PO (08:05)
[2024-04-02] MEDS: Cefdinir 300 MG Capsule PO (08:05)
--- NOTE | 2024-04-02 08:52 | DCINST_ITS ---
Discharge Instructions Diet Discharge Diet: No restrictions Activity Discharge Activity: Return to Normal Activity Dressing / Incision Call your doctor if you observe: Fever of 101 or Higher, Shortness of breath, Dizziness, Fainting spells, Swelling in the ankles, Chest pain and Increased palpitations (irregular heartbeat) Follow Up Care Test Results: Test results from this visit will be discussed in further detail at your follow- up appointment, if applicable. Discharge Plan Admission Admit Date/Time: 03/30/24 11:28 Attending Provider: Leo Park Primary Care Provider: Margarita Drake Consulting Providers: Luis Alberto Aguilar Discharge Orders/Prescriptions Prescriptions: New cefdinir 300 mg Capsule 300 mg PO Q12 3 Days Qty: 6 0RF Continued (DME) 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 See Rx Instructions .Route .MEDSUPPLY Qty: 1 0RF Rx Instructions: Wear at night. folic acid 1 mg tablet 2 mg PO DAILY methotrexate sodium 2.5 mg tablet 2.5 mg PO SA Rx Instructions: take 8 tablets per week gabapentin 800 mg tablet 800 mg PO TID dexamethasone 0.5 mg/5 mL solution 0.5 mg PO BID Qty: 100 0RF pantoprazole [Protonix] 20 mg Tablet,Delayed Release (Dr/Ec) 20 mg PO BID aspirin [Adult Aspirin Regimen] 81 mg tablet,delayed release (DR/EC) 81 mg PO DAILY metformin 500 mg tablet extended release 24 hr 500 mg PO BID baclofen 10 mg tablet 5 - 10 mg PO TID PRN (Reason: muscle spasm) methadone 10 mg tablet 10 mg PO Q8H PRN (Reason: pain) potassium chloride 20 mEq tablet,ER particles/crystals 20 meq PO DAILY fluticasone propionate 50 mcg/actuation spray,suspension 2 spray INTRANASAL DAILY PRN (Reason: allergy symptoms) amlodipine-benazepril 10-20 mg capsule 1 cap PO DAILY duloxetine 60 mg capsule,delayed release(DR/EC) 60 mg PO DAILY Centrum Adult 50 Plus 80 mcg tablet,chewable 1 tab PO DAILY omeprazole 40 mg capsule,delayed release(DR/EC) 40 mg PO DAILY spironolactone 25 mg tablet 25 mg PO DAILY Qty: 30 6RF clopidogrel 75 mg tablet 75 mg PO .COMPLEX Qty: 90 3RF Rx Instructions: 75 mg orally take FOUR TABLETS (300mg) all at once TODAY for loading dose for heart stents; then take ONE tablet by mouth daily; STOP BRILINTA carvedilol 3.125 mg tablet 3.125 mg PO BID Qty: 60 11RF Referrals / Follow Up: Margarita Drake DO [Primary Care Provider] - Within 1 Week Disposition Disposition (needs filled in before D/C Order can be placed): Home, Self Care
--- NOTE | 2024-04-02 09:44 | PHA.DC_ITS ---
Pharmacy [facility] has performed discharge medication reconciliation and counseling for this patient. 1. CEFDINIR 300MG PO BID X 3 DAYS The patient's discharge medication list was reviewed for discrepancies and discrepancies were resolved. The patient was counseled on the following discharge medications and changes in medications for homegoing were reviewed. The Reason for Use, instructions for use, and potential side effects were reviewed for all new medications. The patient's questions regarding all of their medications were answered. The patient was able to verbally demonstrate an understanding of their discharge medications. Patient counseled by dean of studentsZack. Medications at Discharge Home Medications 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 #1 ea 06/29/21 pantoprazole 20 mg tablet,delayed release (Protonix) 20 mg PO BID reflux 0 10/04/22 folic acid 1 mg tablet 2 mg PO DAILY SUPPLEMENT 11/17/22 methotrexate sodium 2.5 mg tablet 2.5 mg PO SA arthritis pain 11/17/22 gabapentin 800 mg tablet 800 mg PO TID disc degeneration 11/17/23 spironolactone 25 mg tablet 25 mg PO DAILY BP/water retention #30 tabs 11/17/23 aspirin 81 mg tablet,delayed release (Adult Aspirin Regimen) 81 mg PO DAILY heart health 01/04/24 metformin 500 mg tablet,extended release 24 hr 500 mg PO BID diabetes 01/05/24 clopidogrel 75 mg tablet 75 mg PO .COMPLEX #90 tabs 01/22/24 baclofen 10 mg tablet 5 - 10 mg PO TID PRN muscle spasm 02/20/24 methadone 10 mg tablet 10 mg PO Q8H PRN pain 02/20/24 potassium chloride 20 mEq tablet,extended release(part/cryst) 20 meq PO DAILY supplement 02/20/24 fluticasone propionate 50 mcg/actuation nasal spray,suspension 2 spray intranasal DAILY PRN allergy symptoms 02/28/24 carvedilol 3.125 mg tablet 3.125 mg PO BID #60 TABLETS 03/28/24 amlodipine 10 mg-benazepril 20 mg capsule 1 cap PO DAILY 03/30/24 dexamethasone 0.5 mg/5 mL oral solution 0.5 mg (5 mL) PO BID #100 mL 03/30/24 duloxetine 60 mg capsule,delayed release 60 mg PO DAILY 03/30/24 multivitamin with minerals-folic acid 80 mcg chewable tablet (Centrum Adult 50 Plus) 1 tab PO DAILY 03/30/24 omeprazole 40 mg capsule,delayed release 40 mg PO DAILY 03/30/24 cefdinir 300 mg capsule 300 mg PO Q12 3 days #6 caps 04/02/24
[2024-04-02 10:53] VITALS: O2SAT 96
[2024-04-02 10:55] VITALS: BP 137/69; PULSE 66; RESP 18; TEMP 36.7; O2SAT 96
--- NOTE | 2024-04-02 13:19 | PCM.DC.SUM ---
Providers Date of Admission: 03/30/24 Primary Care Physician: Dr. Margarita Drake DO Reason For Visit: UTI Diagnosis Discharge Diagnosis (1) UTI (urinary tract infection): Status: Acute Code(s): N39.0 - Urinary tract infection, site not specified (2) Bilateral knee pain: Status: Acute Code(s): M25.561 - Pain in right knee; M25.562 - Pain in left knee Medications at Discharge Home Medications 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 #1 ea 06/29/21 pantoprazole 20 mg tablet,delayed release (Protonix) 20 mg PO BID reflux 10/04/22 folic acid 1 mg tablet 2 mg PO DAILY SUPPLEMENT 11/17/22 methotrexate sodium 2.5 mg tablet 2.5 mg PO SA arthritis pain 11/17/22 gabapentin 800 mg tablet 800 mg PO TID disc degeneration 11/17/23 spironolactone 25 mg tablet 25 mg PO DAILY BP/water retention #30 tabs 11/17/23 aspirin 81 mg tablet,delayed release (Adult Aspirin Regimen) 81 mg PO DAILY heart health 01/04/24 metformin 500 mg tablet,extended release 24 hr 500 mg PO BID diabetes 01/05/24 clopidogrel 75 mg tablet 75 mg PO .COMPLEX #90 tabs 01/22/24 baclofen 10 mg tablet 5 - 10 mg PO TID PRN muscle spasm 02/20/24 methadone 10 mg tablet 10 mg PO Q8H PRN pain 02/20/24 potassium chloride 20 mEq tablet,extended release(part/cryst) 20 meq PO DAILY supplement 02/20/24 fluticasone propionate 50 mcg/actuation nasal spray,suspension 2 spray intranasal DAILY PRN allergy symptoms 02/28/24 carvedilol 3.125 mg tablet 3.125 mg PO BID #60 TABLETS 03/28/24 amlodipine 10 mg-benazepril 20 mg capsule 1 cap PO DAILY 03/30/24 dexamethasone 0.5 mg/5 mL oral solution 0.5 mg (5 mL) PO BID #100 mL 03/30/24 duloxetine 60 mg capsule,delayed release 60 mg PO DAILY 03/30/24 multivitamin with minerals-folic acid 80 mcg chewable tablet (Centrum Adult 50 Plus) 1 tab PO DAILY 03/30/24 omeprazole 40 mg capsule,delayed release 40 mg PO DAILY 03/30/24 cefdinir 300 mg capsule 300 mg PO Q12 3 days #6 caps 04/02/24 Hospital Course Operations None Procedures None Summary of Care Provided Minutes Spent on Discharge: 33 Hospital Course: Per HPI: BEN MAHARAJ, is a 78 F who presents with generalized weakness and bilateral knee pain. Patient has multiple comorbidities including previous PE/DVT, coronary artery disease with stent placement in January 2024 generalized osteoarthritis in addition to rheumatoid arthritis who presented with progressive generalized weakness. Per patient she has been working out at the cardiac rehab she did some work in her garden days prior to her admission she subsequently developed significant bilateral knee pain. This was subsequently followed by progressive generalized weakness. Experience nausea and vomiting resulting in patient not being able to take any of her chronic pain medication. She also did she woke up on the morning of her presentation with excruciating pain as well as swelling in both knees. She did present to the emergency department as a result workup did reveal presence of acute cystitis. Patient was also noted to have bilateral knee swelling. Decision was made to admit patient to regular nursing floor for further management Hospital Course: 1. Acute E. coli UTI with debility and osteoarthritis?78-year-old female presented to the hospital with E. coli UTI as well as bilateral knee pain. The knee pain has improved and she is on chronic pain medications for this issue. I discussed with her the possibility of going to a chcf which she refused. Urine culture came back with a pansensitive E. coli so she was transition to p.o. cefdinir which she has tolerated so I discussed with her the possibility for discharge today and she expressed understanding of the risk and benefits of going home and would like to go home today on oral antibiotics to complete pleat another 3 days of treatment. 2. Coronary artery disease status post stent, essential hypertension, hyperlipidemia, type 2 diabetes, GERD are chronic medical conditions which complicate her care. Her home medications were continued where appropriate Physical Exam Narrative General: Alert, Oriented x3, Cooperative, No apparent distress HEENT: Atraumatic, PERRLA, EOMI, Normocephalic Oral: Moist Mucosa Neck: Supple, No JVD Lungs: Diminished, Normal air movement, No rhonchi, No wheeze, No rales Cardiovascular: Regular rate, Regular Rhythm, Normal S1, Normal S2, No murmurs Abdomen: Soft, Non Tender, Non-Distended, No Hepato-splenomegaly Extremities: No edema, Capillary Refill Less than 3 Seconds Skin: No rashes, No breakdown Musculoskeletal: Bilateral knees are not tender no erythema redness, signs of previous knee replacements bilaterally Neurological: No focal neurological deficits, Motor Exam 5/5 strength throughout, Sensory exam intact to light touch and pain Psych/Mental Status: Normal Affect, Appropriate Weight / BMI Weight Weight: 113 lb 4.799 oz Body Mass Index (BMI) 20.0 ABG / Lab / Microbiology Data 04/02/24 06:12 04/02/24 06:12 Laboratory: Laboratory Results - last 24 hr 04/01/24 16:02: POC Glucose 126 H 04/01/24 22:32: POC Glucose 137 H 04/02/24 06:12: WBC 6.5, RBC 3.39 L, Hgb 10.8 L, Hct 33.6 L, MCV 99.1 H, MCH 31.9, MCHC 32.1, RDW Std Deviation 49.5 H, RDW Coeff of Jaleel 13.8, Plt Count 251, MPV 10.0, Immature Gran % (Auto) 0.300, Neut % (Auto) 76.3 H, Lymph % (Auto) 19.7, Coles % (Auto) 2.9, Eos % (Auto) 0.6, Baso % (Auto) 0.2, Absolute Neuts (auto) 5.0, Absolute Lymphs (auto) 1.28, Nucleated RBC % 0, Sodium 130 L, Potassium 4.5, Chloride 99, Carbon Dioxide 26.0, Anion Gap 5, BUN 10, Creatinine 0.54 L, Estim Creat Clear Calc 45.50, Est GFR (MDRD) Af Amer 141, Est GFR (MDRD) Non-Af 116, BUN/Creatinine Ratio 18.7, Glucose 109 H, Calcium 8.8 Microbiology: Microbiology 03/30/24 10:45 Urine, Clean Catch Urine Culture - Final Escherichia coli D/C Instructions Discharge Diet: No restrictions Call your doctor if you observe: Fever of 101 or Higher, Shortness of breath, Dizziness, Fainting spells, Swelling in the ankles, Chest pain and Increased palpitations (irregular heartbeat) Meaningful Use Info Meaningful Use Meaningful Use Diagnoses (Choose all that apply): None applicable Ischemic Stroke Statin Dosing Therapy Reference: STATIN DOSE THERAPY REFERENCE: * Patients > 75 years receive moderate or high dose statin therapy. * Patients 75 years or YOUNGER should receive HIGH intensity statin dose unless contraindicated. You will be required to document reason for non-treatment if statin daily dose does not meet guidelines. HIGH DOSE STATIN THERAPY DAILY Atorvastatin > than or = to 40 mg Rosuvastatin > than or = to 20 mg Amlodipine + Atorvastatin > than or = to 2.5/40 mg Ezetimibe + Simvastatin 10/80 mg Simvastatin 80mg Discharge Plan Admission Admit Date/Time: 03/30/24 11:28 Attending Provider: Leo Park Primary Care Provider: Margarita Drake Consulting Providers: Luis Alberto Aguilar Discharge Orders/Prescriptions Prescriptions: New cefdinir 300 mg Capsule 300 mg PO Q12 3 Days Qty: 6 0RF Continued (DME) 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 See Rx Instructions .Route .MEDSUPPLY Qty: 1 0RF Rx Instructions: Wear at night. folic acid 1 mg tablet 2 mg PO DAILY methotrexate sodium 2.5 mg tablet 2.5 mg PO SA Rx Instructions: take 8 tablets per week gabapentin 800 mg tablet 800 mg PO TID dexamethasone 0.5 mg/5 mL solution 0.5 mg PO BID Qty: 100 0RF pantoprazole [Protonix] 20 mg Tablet,Delayed Release (Dr/Ec) 20 mg PO BID aspirin [Adult Aspirin Regimen] 81 mg tablet,delayed release (DR/EC) 81 mg PO DAILY metformin 500 mg tablet extended release 24 hr 500 mg PO BID baclofen 10 mg tablet 5 - 10 mg PO TID PRN (Reason: muscle spasm) methadone 10 mg tablet 10 mg PO Q8H PRN (Reason: pain) potassium chloride 20 mEq tablet,ER particles/crystals 20 meq PO DAILY fluticasone propionate 50 mcg/actuation spray,suspension 2 spray INTRANASAL DAILY PRN (Reason: allergy symptoms) amlodipine-benazepril 10-20 mg capsule 1 cap PO DAILY duloxetine 60 mg capsule,delayed release(DR/EC) 60 mg PO DAILY Centrum Adult 50 Plus 80 mcg tablet,chewable 1 tab PO DAILY omeprazole 40 mg capsule,delayed release(DR/EC) 40 mg PO DAILY spironolactone 25 mg tablet 25 mg PO DAILY Qty: 30 6RF clopidogrel 75 mg tablet 75 mg PO .COMPLEX Qty: 90 3RF Rx Instructions: 75 mg orally take FOUR TABLETS (300mg) all at once TODAY for loading dose for heart stents; then take ONE tablet by mouth daily; STOP BRILINTA carvedilol 3.125 mg tablet 3.125 mg PO BID Qty: 60 11RF Referrals / Follow Up: Margarita Drake DO [Primary Care Provider] - Within 1 Week Disposition Disposition (needs filled in before D/C Order can be placed): Home, Self Care Charges/Coding Visit Charges Inpatient E&M: 17965 Disch Hosp >30min
== END 2024-04-02 12:03 | disposition home or self-care (01) | DRG 690 ==
LOC: ED 11:44 → MS3 12:11
PROVIDERS: Admitting Provider Internal Medicine; Emergency Provider Emergency Medicine; PCP Internal Medicine; Visit Provider Family Medicine
DX: N30.00 Acute cystitis without hematuria (principal); E87.1 Hypo-osmolality and hyponatremia; E11.9 Type 2 diabetes mellitus without complications; E78.5 Hyperlipidemia, unspecified; B96.20 Unspecified Escherichia coli [E. coli] as the cause of diseases classified elsewhere; G89.4 Chronic pain syndrome; M06.9 Rheumatoid arthritis, unspecified; I10 Essential (primary) hypertension; Z79.4 Long term (current) use of insulin; I25.10 Atherosclerotic heart disease of native coronary artery without angina pectoris; M79.7 Fibromyalgia; M17.0 Bilateral primary osteoarthritis of knee; I25.2 Old myocardial infarction; Z95.5 Presence of coronary angioplasty implant and graft; Z96.643 Presence of artificial hip joint, bilateral; Z96.653 Presence of artificial knee joint, bilateral; Z98.1 Arthrodesis status; Z79.02 Long term (current) use of antithrombotics/antiplatelets; Z79.52 Long term (current) use of systemic steroids; Z79.82 Long term (current) use of aspirin; Z79.84 Long term (current) use of oral hypoglycemic drugs; Z79.891 Long term (current) use of opiate analgesic; Z79.899 Other long term (current) drug therapy; Z86.711 Personal history of pulmonary embolism; Z86.718 Personal history of other venous thrombosis and embolism
CPT/HCPCS: 36415; 73560; 80048; 81001; 82962; 83735; 84100; 85025; 87077; 87086; 87088; 87186; 93005; 94668; 97162; 97166; 97530; 97535; 99252; 99284; J7040; J7050; A4216; G0463; J2405; J8610

== ENCOUNTER 2024-04-05 06:06 | Outpatient (RCR) | payer MEDICARE, OTHER, SELFPAY ==
[2024-03-18 13:04] VITALS: BMI 20.7
[2024-04-04 00:37] VITALS: BP 112/58; BP 90/50
--- NOTE | 2024-04-18 07:11 | PCM.CR.ITP ---
Psychosocial - Initial Assess Target Goals Target Goals Nutrition Survey Nutrition Survey Instructions Scoring Instructions Exercise - 90-day Assessment Visit Date of Eval: 04/18/24 Session #:: 26 Comments:: Pt is on med hold due to recent vicky knee surgery. Psychosocial - 30-Day Assess Target Goals Target Goals Psychosocial - 60-Day Assess Target Goals Target Goals Psychosocial - 90-Day Assess Target Goals Target Goals Psychosocial - Final Assessmen Target Goals Target Goals
== END 2024-05-04 23:59 ==
LOC: CR 06:06
PROVIDERS: PCP Internal Medicine; Referring Provider Specialist; Visit Provider Specialist
DX: Z95.5 Presence of coronary angioplasty implant and graft (principal); I25.10 Atherosclerotic heart disease of native coronary artery without angina pectoris; R94.39 Abnormal result of other cardiovascular function study; R06.09 Other forms of dyspnea; R53.83 Other fatigue
CPT/HCPCS: 93798

== ENCOUNTER 2024-04-06 08:25 | Inpatient (IN) | payer MEDICARE, OTHER, SELFPAY ==
[2024-03-18 13:04] VITALS: BMI 20.7
[2024-04-06] VITALS (9 sets, daily range): BP systolic 105–126; BP diastolic 58–73; PULSE 62–84; RESP 15–18; TEMP 35.9–36.9; O2SAT 94–99; BMI 20.2; BMI 19.6
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
[2024-04-06] MEDS: Ondansetron 4 MG/2 ML Vial IV (09:01)
[2024-04-06] MEDS: Morphine 4 MG/ML Syringe IV (09:01)
[2024-04-06 09:27] LABS: Absolute Lymphocyte Count 1.41 X10^3/uL (0.83-4.51); Absolute Neutrophil Count 24.1 X10^3/uL (2.0-7.7); Basophil# 0.06 X10^3/uL; Basophil% 0.2 % (0-1); Hematocrit 36.5 % (37-47); Hemoglobin 11.7 g/dL (12.0-15.0); Lymphocyte # 1.41 X10^3/ul (0.83-4.51); Lymphocyte % 5.2 % (19-41); Mean Corp Hgb Conc 32.1 g/dL (32-36); Mean Corpuscular Hgb 31.6 pg (27.0-32.0); Mean Corpuscular Volume 98.6 fL (81-99); Monocyte# 1.02 X10^3/uL; Monocyte% 3.8 % (0-10); NRBC Flagged by Analyzer 0 % (0-5); Neutrophil # 24.13 X10^3/uL (2.7-7.7); Neutrophil % 89.1 % (47-70); POSITIVE DIFFERENTIAL YES; Platelet Count 522 K/mm3 (150-450); RBC Distribution Width CV 14.8 % (11.6-14.6); RBC Distribution Width SD 53.3 fl (35.1-43.9); White Blood Count 27.1 K/mm3 (4.4-11.0)
--- NOTE | 2024-04-06 09:32 | ED.RN ---
THIS RN HAD DISCUSSION WITH PT REGARDING CARE HOME PLACEMENT. PT STATES I DON'T WANT PLACEMENT. PT AWARE SHE NEEDS PLAN FOR HOME CARE
[2024-04-06 09:41] LABS: Anion Gap 7 (5-15); BUN 22 mg/dL (7-18); BUN/Creat Ratio 21.4 RATIO (10-20); Calcium,Total 8.9 mg/dL (8.5-10.1); Chloride 99 mmol/L (98-107); Creatinine, Serum 1.03 mg/dL (0.55-1.02); EST Glomerular Filtration Rate 55 mL/min (>60); Est Glom Filt Rate - Afr Amer 66 mL/min (>60); Estimated Creatinine Clearance 35.76 ml/min; Glucose 106 mg/dL (74-106); Potassium 4.4 mmol/L (3.5-5.1); Sodium Level 133 mmol/L (136-145)
[2024-04-06 10:01] LABS: Bacteria 0 SEEN /hpf (None Seen); Mucous, Urine 0 SEEN /hpf (<or=2+); Red Blood Cells-Urine 0 SEEN /hpf (0-5); Squamous Epithelial Cells - UA 0 SEEN /hpf (5-10)
[2024-04-06 10:03] LABS: Color, Urine Amber (Yellow); Glucose, Dipstick Normal (Normal); Ketone-Dipstick 5 mg/dl (Negative); Leukocyte Esterase-Dipstick 100 /ul (Negative); Nitrite-Dipstick Negative (Negative); Occult Blood-Urine Negative /ul (Negative); Protein-Dipstick 15 mg/dl (Negative); Urine Clarity Clear (Clear); Urine Urobilinogen 1 mg/dl (Normal)
[2024-04-06 10:05] LABS: Urine Bilirubin Dipstick 3 mg/dL (Negative)
[2024-04-06 10:16] LABS: Differential Indicated SCAN CRITERIA MET
[2024-04-06 10:20] LABS: Hyaline Cast 0-5 SEEN /lpf (0-5); White Blood Cells 0-5 SEEN /hpf (0-5)
[2024-04-06] MEDS: Acetaminophen 325 MG Tablet 650 MG PO (10:32)
--- NOTE | 2024-04-06 11:03 | RAD_ITS ---
EXAM: XR CHEST, 1 VIEW CLINICAL INDICATION: cad TECHNIQUE: Frontal view of the chest. COMPARISON: XR Chest dated 01/25/2024 FINDINGS: LUNGS AND PLEURAL SPACES: Normal. No consolidation or edema. No pneumothorax. No effusion. HEART: Stable normal heart size. Left coronary artery stent again seen. MEDIASTINUM: No mediastinal or hilar mass. BONES/JOINTS: No acute abnormality. RAD/Chest 1 View (Portable) IMPRESSION: No acute cardiopulmonary abnormality. No interval change. Electronically Signed: Daniel Pino MD at 11:16 EDT ,
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
--- NOTE | 2024-04-06 11:19 | NURSING ---
DR MARTHA CHOWDARY
--- NOTE | 2024-04-06 11:22 | NURSING ---
MED SURG OBS [facility] INABILITY TO AMBULATE, LEUKOCYSOSIS
[2024-04-06] MEDS: Baclofen 10 MG Tablet 5 MG PO (14:27)
[2024-04-06] MEDS: Methadone 10 MG Tablet PO ×2 (14:27→22:57)
[2024-04-06] MEDS: Gabapentin 800 MG Tablet PO ×2 (14:27→23:07)
--- NOTE | 2024-04-06 15:27 | RAD_ITS ---
STUDY: X-RAY - RIGHT KNEE REASON FOR EXAM: Female, 78 years old. BILATERAL KNEE PAIN TECHNIQUE: 3 view(s) of the knee. COMPARISON: None. FINDINGS: There is demineralization of the visualized distal femur. There is demineralization of the tibia and fibula. Normal proximal tibiofibular articulation. There is no demonstrated fracture. There is a total joint replacement . Alignment is near-anatomic. There is a soft tissue prominence in the suprapatellar region suggesting a moderate volume joint effusion. The soft tissue structures are unremarkable. RAD/Knee 3 Views IMPRESSION: Right knee replacement. Joint effusion. No fracture seen. Electronically Signed: Cristhian Spears MD at 8:47 EDT ,
[2024-04-06] MEDS: Methotrexate 2.5 MG Tablet 20 MG PO (15:39)
--- NOTE | 2024-04-06 15:43 | RAD_ITS ---
STUDY: X-RAY - LEFT KNEE REASON FOR EXAM: Female, 78 years old. Bilateral knee pain and swelling TECHNIQUE: 3 view(s) of the knee. COMPARISON: None. FINDINGS: There is demineralization of the visualized distal femur. There is demineralization of the tibia and fibula. Normal proximal tibiofibular articulation. There is no demonstrated fracture. There is total joint replacement. Alignment is near-anatomic. There is a soft tissue prominence in the suprapatellar region suggesting a moderate volume joint effusion. The soft tissue structures are unremarkable. RAD/Knee 3 Views IMPRESSION: Left knee replacement. Joint effusion. No fracture seen. Electronically Signed: Cristhian Spears MD at 8:49 EDT ,
[2024-04-06 17:06] LABS: Bedside Glucose 135 mg/dL (74-106)
[2024-04-06 17:21] LABS: Erythrocyte Sedimentation Rate 46 mm/hr (0-30)
[2024-04-06] MEDS: metFORMIN (XR) 500 MG Tablet PO (17:33)
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
[2024-04-06 18:44] LABS: Pathologist Comment May follow
[2024-04-06 18:45] LABS: Pathologist Comment May follow
[2024-04-06 20:34] LABS: AUTO B FLUID DILUENT BKGD CT WBC <0.1 RBC <0.01 (W<.1,R<.01)
[2024-04-06 20:35] LABS: Appearance /Synovial Fluid Cloudy (CLEAR); CRYSTALS, BODY FLUID See PATH REV; Color / Synovial Fluid Yellow (Pale Yellow); Source / Synovial Fluid RIGHT KNEE; Source- Body Fluid SYNOVIAL
[2024-04-06 20:36] LABS: RBC /Synovial Fluid 25 /mm3 (0)
[2024-04-06 20:37] LABS: Monocyte /Synovial Fluid 6 %; Neutrophil 94 % (0-25); Synovial Fld Mononuclear WBC # 3.287 10^3/ul; Synovial Fld Mononuclear WBC % 4.9 %; Synovial Fld Polynuclear WBC # 63.894 10^3/uL; Synovial Fld Polynuclear WBC % 95.1 %
[2024-04-06 20:38] LABS: Body Fluid QC Type(s) BF1Q,BF2Q
[2024-04-06 20:41] LABS: AUTO B FLUID DILUENT BKGD CT WBC <0.1 RBC <0.01 (W<.1,R<.01); Appearance /Synovial Fluid Cloudy (CLEAR); CRYSTALS, BODY FLUID See PATH REV; Color / Synovial Fluid Yellow (Pale Yellow); Source / Synovial Fluid LEFT KNEE; Source- Body Fluid SYNOVIAL
[2024-04-06 20:42] LABS: RBC /Synovial Fluid 0.004 10^6/uL (0)
[2024-04-06 20:43] LABS: Synovial Fld Polynuclear WBC # 63.805 10^3/uL
[2024-04-06 20:44] LABS: Body Fluid QC Type(s) BF1Q,BF2Q; Monocyte /Synovial Fluid 4 %; Neutrophil 96 % (0-25); Synovial Fld Mononuclear WBC # 2.649 10^3/ul
--- NOTE | 2024-04-06 21:37 | NURSING ---
RCVD CALL FROM THAT LAB THAT GRAM STAIN IS NEGATIVE IN BILAT KNEE FLUID OBTAINED EARLIER TODAY.
[2024-04-06] MEDS: Pantoprazole Sodium 20 MG Tablet PO (22:58)
[2024-04-06] MEDS: Carvedilol 3.125 MG TABLET PO (22:58)
[2024-04-06 23:31] LABS: Bedside Glucose 144 mg/dL (74-106)
[2024-04-06] MEDS: MELATONIN 10 MG TABLET PO (23:49)
[2024-04-07] VITALS (18 sets, daily range): BP systolic 93–143; BP diastolic 51–98; PULSE 59–74; RESP 14–18; TEMP 36.3–36.9; O2SAT 95–100; BMI 19.6
--- NOTE | 2024-04-07 02:16 | EKG12_ITS ---
Test Reason : PRE-OP Blood Pressure : / mmHG Vent. Rate : 062 BPM Atrial Rate : 062 BPM P-R Int : 168 ms QRS Dur : 074 ms QT Int : 436 ms P-R-T Axes : 028 -05 078 degrees QTc Int : 442 ms Normal sinus rhythm Septal infarct (cited on or before 02-NOV-2022) Inferior infarct (cited on or before 02-NOV-2022) Abnormal ECG When compared with ECG of 02-APR-2024 05:44, No significant change was found Confirmed by Edin Dolan ([id number]), associate editor MILVIA MCLEAN ([id number]) on 04/09/2024 2:12:32 PM Referred By: SANDRA Confirmed By:Edin Dolan
[2024-04-07 04:05] LABS: Absolute Lymphocyte Count 1.05 X10^3/uL (0.83-4.51); Absolute Neutrophil Count 14.1 X10^3/uL (2.0-7.7); Basophil# 0.01 X10^3/uL; Basophil% 0.1 % (0-1); Eosinophil# 0.02 X10^3/uL; Eosinophils% 0.1 % (0-5); Hematocrit 31.2 % (37-47); Hemoglobin 10.1 g/dL (12.0-15.0); Lymphocyte # 1.05 X10^3/ul (0.83-4.51); Lymphocyte % 6.6 % (19-41); Mean Corp Hgb Conc 32.4 g/dL (32-36); Mean Corpuscular Hgb 32.5 pg (27.0-32.0); Mean Corpuscular Volume 100.3 fL (81-99); Mean Platelet Vol. 9.1 fl (6.2-12.0); Monocyte# 0.71 X10^3/uL; Monocyte% 4.4 % (0-10); NRBC Flagged by Analyzer 0 % (0-5); Neutrophil # 14.08 X10^3/uL (2.7-7.7); Neutrophil % 88.2 % (47-70); Platelet Count 498 K/mm3 (150-450); RBC Distribution Width CV 14.6 % (11.6-14.6); RBC Distribution Width SD 52.8 fl (35.1-43.9); Red Blood Count 3.11 M/mm3 (4.2-5.4)
[2024-04-07 04:41] LABS: Anion Gap 6 (5-15); BUN 25 mg/dL (7-18); BUN/Creat Ratio 28.6 RATIO (10-20); Calcium,Total 8.5 mg/dL (8.5-10.1); Chloride 95 mmol/L (98-107); Creatinine, Serum 0.87 mg/dL (0.55-1.02); EST Glomerular Filtration Rate 66 mL/min (>60); Est Glom Filt Rate - Afr Amer 80 mL/min (>60); Estimated Creatinine Clearance 41.03 ml/min; Glucose 115 mg/dL (74-106); Potassium 4.5 mmol/L (3.5-5.1); Sodium Level 128 mmol/L (136-145)
[2024-04-07] MEDS: Gabapentin 800 MG Tablet PO ×3 (06:40→23:09)
[2024-04-07 07:09] LABS: Bedside Glucose 113 mg/dL (74-106)
[2024-04-07 07:31] LABS: Hemoglobin A1c 5.3 % (3.8-5.6)
--- NOTE | 2024-04-07 07:39 | PN.HOSP_ITS ---
Reason for Visit Reason for Visit: Diagnoses Atherosclerotic heart disease of [place] coronary artery without angina pectoris (04/06/24) Difficulty in walking, not elsewhere classified (04/06/24) Pain due to internal orthopedic prosthetic devices, implants and grafts, initial encounter (04/06/24) Presence of right artificial knee joint (04/06/24) Presence of left artificial knee joint (04/06/24) Objective Data Objective Data Vital Signs: Vital Signs Temp Pulse Resp BP Pulse Ox O2 Del Method 98.4 F 67 15 93/51 L 97 Room Air 04/07/24 03:00 04/07/24 03:00 04/07/24 03:00 04/07/24 03:00 04/07/24 03:00 04/07/24 04:35 Oxygen Delivery Method Room Air Weight: 111 lb 1.808 oz Body Mass Index (BMI) 19.6 Intake & Output: Intake and Output for Last 24 Hours 04/05/24 04/06/24 04/07/24 23:59 23:59 23:59 Intake Total 500 / 980 480 / 480 Output Total 600 / 600 Balance 500 / 380 -120 / -120 Lab / Micro Data 04/07/24 03:24 04/07/24 03:24 Labs: Laboratory Results - last 24 hr 04/06/24 09:15: WBC 27.1 H, RBC 3.70 L, Hgb 11.7 L, Hct 36.5 L, MCV 98.6, MCH 31.6, MCHC 32.1, RDW Std Deviation 53.3 H, RDW Coeff of Jaleel 14.8 H, Plt Count 522 H, MPV 9.0, Immature Gran % (Auto) 1.700 H, Neut % (Auto) 89.1 H, Lymph % (Auto) 5.2 L, [place] % (Auto) 3.8, Eos % (Auto) 0.0, Baso % (Auto) 0.2, Absolute Neuts (auto) 24.1 H, Absolute Lymphs (auto) 1.41, Nucleated RBC % 0, ESR 46 H, S odium 133 L, Potassium 4.4, Chloride 99, Carbon Dioxide 27.0, Anion Gap 7, BUN 22 H, Creatinine 1.03 H, Estim Creat Clear Calc 35.76, Est GFR (MDRD) Af Amer 66, Est GFR (MDRD) Non-Af 55 L, BUN/Creatinine Ratio 21.4 H, Glucose 106, Calcium 8.9, C-React Prot Ext Range 150.00 H 04/06/24 09:55: Urine Color Grace, Urine Clarity Clear, Urine pH 5.0, Ur Specific Plessis 1.020, Urine Protein 15 H, Urine Glucose (UA) Normal, Urine Ketones 5 H, Urine Occult Blood Negative, Urine Nitrite Negative, Urine Bilirubin 3 H, Urine Urobilinogen 1 H, Ur Leukocyte Esterase 100 H, Urine RBC 0 SEEN, Urine WBC 0-5 SEEN, Ur Squamous Epith Cells 0 SEEN, Urine Bacteria 0 SEEN, Hyaline Casts 0-5 SEEN, Urine Mucus 0 SEEN 04/06/24 16:44: POC Glucose 135 H 04/06/24 17:00: Fluid Crystals See PATH REV 04/06/24 17:00: Fluid Crystals See PATH REV, Fluid Crystal Source SYNOVIAL 04/06/24 17:00: Fluid Crystal Source SYNOVIAL, Fl Crystal Path Review Will follow 04/06/24 17:00: Fl Crystal Path Review Will follow, Synovial Source RIGHT KNEE 04/06/24 17:00: Synovial Source LEFT KNEE, Synovial Color Yellow 04/06/24 17:00: Synovial Color Yellow, Synovial Appearance Cloudy 04/06/24 17:00: Synovial Appearance Cloudy, Synovial WBC 64.4500 H 04/06/24 17:00: Synovial WBC 65.2300 H, Synovial RBC 25 H 04/06/24 17:00: Synovial RBC 0.004 H, Synovial Tot Cell Ct 64.7700 H 04/06/24 17:00: Synovial Tot Cell Ct 65.4300 H, Synov Polynuclear WBCs 63.894 04/06/24 17:00: Synov Polynuclear WBCs 63.805, Synov Mononuclear WBCs 3.287 04/06/24 17:00: Synov Mononuclear WBCs 2.649, Synovial Neutrophils 94 H 04/06/24 17:00: Synovial Neutrophils 96 H, Synovial Monocytes 6 04/06/24 17:00: Synovial Monocytes 4, Synovial Polynuclear % 95.1 04/06/24 17:00: Synovial Polynuclear % 96.0, Synovial Mononuclear % 4.9 04/06/24 17:00: Synovial Mononuclear % 4.0, Synovial Path Comment May follow 04/06/24 17:00: Synovial Path Comment May follow /03/24 23:11: POC Glucose 144 H 04/07/24 03:24: WBC 16.0 H, RBC 3.11 L, Hgb 10.1 L, Hct 31.2 L, MCV 100.3 H, MCH 32.5 H, MCHC 32.4, RDW Std Deviation 52.8 H, RDW Coeff of Jaleel 14.6, Plt Count 498 H, MPV 9.1, Immature Gran % (Auto) 0.600, Neut % (Auto) 88.2 H, Lymph % (Auto) 6.6 L, [place] % (Auto) 4.4, Eos % (Auto) 0.1, Baso % (Auto) 0.1, Absolute Neuts (auto) 14.1 H, Absolute Lymphs (auto) 1.05, Nucleated RBC % 0, Sodium 128 L, Potassium 4.5, Chloride 95 L, Carbon Dioxide 27.0, Anion Gap 6, BUN 25 H, Creatinine 0.87, Estim Creat Clear Calc 41.03, Est GFR (MDRD) Af Amer 80, Est GFR (MDRD) Non-Af 66, BUN/Creatinine Ratio 28.6 H, Glucose 115 H, Hemoglobin A1c 5.3, Calcium 8.5 04/07/24 06:42: POC Glucose 113 H Radiography Diagnostic Testing: Radiology Impression Chest X-Ray 04/06/24 11:03 IMPRESSION: No acute cardiopulmonary abnormality. No interval change. Electronically Signed: Daniel Pino MD at 11:16 EDT Reading Location ID and State: [facility] / [place] Tel , Service support , Physical Exam Narrative Seen and examined. No chest pain or shortness of breath. Patient has bilateral knee pain, left more than right knee. She states she had cardiac stenting January 2024 and after that she was started on cardiac rehab. On the treadmill she felt her knee started swelling and pain and therefore admitted. No history of smoking or alcohol. No fever or chills Physical exam General: Alert, Oriented x3, Cooperative HEENT: Atraumatic, PERRLA, EOMI, Normocephalic Oral: No Gingival or Mucosal Lesions/ Ulcerations Neck: Supple, No JVD, Negative Carotid Bruits Chest wall/Lungs: Air entry equal in bilateral lung bases. No crepitation/rhonchi Cardiovascular: Regular rate, Regular Rhythm, Normal S1, Normal S2, No M/G/R Abdomen: Bowel Sounds Present, Soft, Non Tender, Non-Distended : No dysuria. No renal angle tenderness. No suprapubic tenderness. Extremities: No edema, Capillary Refill Less than 3 Seconds Skin: No rashes, No breakdown Musculoskeletal: Bilateral knees swollen and tender left more than right. Had arthrocentesis in both knees. Neurological: Cranial nerves II-XII grossly intact, DTR 2+/4. No acute focal neurological deficit. Psych/Mental Status: Normal Affect, Appropriate. Assessment & Plan Assessment/Plan (1) Inability to ambulate due to knee: PLAN: Plan #Debility due to acute on chronic bilateral knee pain * Patient was recently admitted and admitted discharged on 04/02/2024 when she complained of similar bilateral knee pain and at that time also had UTI with E. coli being cultured * She refused SNF placement and was discharged home. * She comes in today because of worsening bilateral knee pain. * Admit to [facility] with telemetry. Consult PT OT. Fall precautions. * P.o. Tylenol, patient already on methadone. Will continue this. * X-rays done just on 03/30/2024 showed no fracture or dislocation is stable postsurgical changes from left knee arthroplasty as well as small joint effusion and soft tissue swelling. * consult orthopedic surgery per patient request. * X-rays ordered of the knees. 04/07: Patient had right and left knee arthrocentesis by Dr. Sykes yesterday. Results reviewed. Gram stain and culture pending but shows mainly highly leukocytosis, more than 65,000 with 96% neutrophils, 4% monocytes. Patient does not have fever or tachycardia but BP on lower side 93/51, 105/59 therefore decided to start on IV antibiotics empirically. IV vancomycin and ceftriaxone started. Patient had bilateral knees replaced. Clinically PJI. Twelve-lead EKG individually reviewed. Normal sinus rhythm 62 bpm. Old infarct. QTc 442 ms. Patient was also seen by supplier engineer and discussed with Dr. Ayala. Patient had 2 g IV preop. Started on vancomycin and IV ceftriaxone. ID consult for tomorrow AM Patient was taken to the OR and postop diagnosis periprosthetic joint infection). And right knee irrigation and debridement, complete synovectomy and 1 component revision #Leukocytosis: WBCs 27.1. Due to PJI Improvement in leukocytosis. #Hypertension: On amlodipine benazepril and carvedilol. IV hydralazine as needed. #CAD s/p stents: On aspirin and carvedilol as well as Plavix and high intensity statin. Patient had PCI by Dr. Reid on January 2024. History of Takotsubo cardiomyopathy with improvement of LV function to normal. Once hemostasis resumed, antiplatelet resume, low-dose aspirin and Brilinta 90 mg twice daily. #Type 2 diabetes mellitus: On metformin. Insulin sliding scale. Tactics ACHS. #History of rheumatoid arthritis: On methotrexate DVT prophylaxis: lovenox Code status:DNRCCA no intubation * Patient counseled extensively about different types of CODE STATUS including full code, DNR CCA and DNR CCA. Patient elects to be DNRCCA no intubation. Charges/Coding Visit Charges Inpatient E&M: 19988 Subs Hosp L2
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
--- NOTE | 2024-04-07 09:41 | PN.ORTHO_ITS ---
Objective Data Objective Data Vital Signs: Vital Signs Temp Pulse Resp BP Pulse Ox O2 Del Method 98.4 F 67 15 93/51 L 97 Room Air 04/07/24 08:28 04/07/24 08:28 04/07/24 08:28 04/07/24 08:28 04/07/24 08:28 04/07/24 04:35 Oxygen Delivery Method Room Air Weight: 111 lb 1.808 oz Body Mass Index (BMI) 19.6 Intake & Output: Intake and Output for Last 24 Hours 04/05/24 04/06/24 04/07/24 23:59 23:59 23:59 Intake Total 500 / 980 480 / 480 Output Total 600 / 600 Balance 500 / 380 -120 / -120 Lab / Micro Data 04/07/24 03:24 04/07/24 03:24 Labs: Laboratory Results - last 24 hr 04/06/24 09:15: WBC 27.1 H, RBC 3.70 L, Hgb 11.7 L, Hct 36.5 L, MCV 98.6, MCH 31.6, MCHC 32.1, RDW Std Deviation 53.3 H, RDW Coeff of Jaleel 14.8 H, Plt Count 522 H, MPV 9.0, Immature Gran % (Auto) 1.700 H, Neut % (Auto) 89.1 H, Lymph % (Auto) 5.2 L, [place] % (Auto) 3.8, Eos % (Auto) 0.0, Baso % (Auto) 0.2, Absolute Neuts (auto) 24.1 H, Absolute Lymphs (auto) 1.41, Nucleated RBC % 0, ESR 46 H, S odium 133 L, Potassium 4.4, Chloride 99, Carbon Dioxide 27.0, Anion Gap 7, BUN 22 H, Creatinine 1.03 H, Estim Creat Clear Calc 35.76, Est GFR (MDRD) Af Amer 66, Est GFR (MDRD) Non-Af 55 L, BUN/Creatinine Ratio 21.4 H, Glucose 106, Calcium 8.9, C-React Prot Ext Range 150.00 H 04/06/24 09:55: Urine Color Grace, Urine Clarity Clear, Urine pH 5.0, Ur Specific [place] 1.020, Urine Protein 15 H, Urine Glucose (UA) Normal, Urine Ketones 5 H, Urine Occult Blood Negative, Urine Nitrite Negative, Urine Bilirubin 3 H, Urine Urobilinogen 1 H, Ur Leukocyte Esterase 100 H, Urine RBC 0 SEEN, Urine WBC 0-5 SEEN, Ur Squamous Epith Cells 0 SEEN, Urine Bacteria 0 SEEN, Hyaline Casts 0-5 SEEN, Urine Mucus 0 SEEN 04/06/24 16:44: POC Glucose 135 H 04/06/24 17:00: Fluid Crystals See PATH REV 04/06/24 17:00: Fluid Crystals See PATH REV, Fluid Crystal Source SYNOVIAL 04/06/24 17:00: Fluid Crystal Source SYNOVIAL, Fl Crystal Path Review Will follow 04/06/24 17:00: Fl Crystal Path Review Will follow, Synovial Source RIGHT KNEE 04/06/24 17:00: Synovial Source LEFT KNEE, Synovial Color Yellow 04/06/24 17:00: Synovial Color Yellow, Synovial Appearance Cloudy 04/06/24 17:00: Synovial Appearance Cloudy, Synovial WBC 64.4500 H 04/06/24 17:00: Synovial WBC 65.2300 H, Synovial RBC 25 H 04/06/24 17:00: Synovial RBC 0.004 H, Synovial Tot Cell Ct 64.7700 H 04/06/24 17:00: Synovial Tot Cell Ct 65.4300 H, Synov Polynuclear WBCs 63.894 04/06/24 17:00: Synov Polynuclear WBCs 63.805, Synov Mononuclear WBCs 3.287 04/06/24 17:00: Synov Mononuclear WBCs 2.649, Synovial Neutrophils 94 H 04/06/24 17:00: Synovial Neutrophils 96 H, Synovial Monocytes 6 04/06/24 17:00: Synovial Monocytes 4, Synovial Polynuclear % 95.1 04/06/24 17:00: Synovial Polynuclear % 96.0, Synovial Mononuclear % 4.9 04/06/24 17:00: Synovial Mononuclear % 4.0, Synovial Path Comment May follow 04/06/24 17:00: Synovial Path Comment May follow 04/06/24 23:11: POC Glucose 144 H 04/07/24 03:24: WBC 16.0 H, RBC 3.11 L, Hgb 10.1 L, Hct 31.2 L, MCV 100.3 H, MCH 32.5 H, MCHC 32.4, RDW Std Deviation 52.8 H, RDW Coeff of Jaleel 14.6, Plt Count 498 H, MPV 9.1, Immature Gran % (Auto) 0.600, Neut % (Auto) 88.2 H, Lymph % (Auto) 6.6 L, [place] % (Auto) 4.4, Eos % (Auto) 0.1, Baso % (Auto) 0.1, Absolute Neuts (auto) 14.1 H, Absolute Lymphs (auto) 1.05, Nucleated RBC % 0, Sodium 128 L, Potassium 4.5, Chloride 95 L, Carbon Dioxide 27.0, Anion Gap 6, BUN 25 H, Creatinine 0.87, Estim Creat Clear Calc 41.03, Est GFR (MDRD) Af Amer 80, Est GFR (MDRD) Non-Af 66, BUN/Creatinine Ratio 28.6 H, Glucose 115 H, Hemoglobin A1c 5.3, Calcium 8.5 04/07/24 06:42: POC Glucose 113 H Micro: Microbiology 04/06/24 17:00 Fluid - Synovial (joint) Body Fluid Culture - Preliminary No growth-Final to follow 04/06/24 17:00 Fluid - Synovial (joint) Body Fluid Culture - Preliminary No growth-Final to follow Radiography Diagnostic Testing: Radiology Impression Chest X-Ray 04/06/24 11:03 IMPRESSION: No acute cardiopulmonary abnormality. No interval change. Electronically Signed: Daniel Pino MD at 11:16 EDT , Knee X-Ray 04/06/24 15:27 IMPRESSION: Right knee replacement. Joint effusion. No fracture seen. Electronically Signed: Cristhian Spears MD at 8:47 EDT , Knee X-Ray 04/06/24 15:43 IMPRESSION: Left knee replacement. Joint effusion. No fracture seen. Electronically Signed: Cristhian Spears MD at 8:49 EDT , Assessment & Plan Assessment/Plan (1) Infection of total right knee replacement: PLAN: Labs were reviewed this morning. Based on MSIS criteria patient has right knee periprosthetic joint infection. Will proceed with plan as noted yesterday. (2) Infection of total left knee replacement: PLAN: Labs were reviewed this morning. Based on MSIS criteria patient has left knee periprosthetic joint infection. Will proceed with plan as noted yesterday PLAN: Plan Based on medical team and anesthesia team review of chart patient has been deemed to be at maximal optimization to proceed with surgical intervention. Based on this we will proceed with surgery this morning.
[2024-04-07] MEDS: Lactated Ringers 500 ML 999 ML IV (09:50)
[2024-04-07 09:56] LABS: Bedside Glucose 113 mg/dL (74-106)
[2024-04-07] MEDS: Vancomycin HCl 750 MG in 0.9% Normal Saline (250mL Bag) 250 ML 250 MG IV (10:05)
[2024-04-07] MEDS: Ceftriaxone 1 GM/50 ML BAG IV (10:08)
[2024-04-07] MEDS: Cefazolin 2 GM in 0.9% Normal Saline (100mL Bag) 100 ML IV (10:20)
--- NOTE | 2024-04-07 10:27 | PCM.RX.CS ---
Consult Antibiotic Management Pharmacy has been consulted to manage selected antibiotic: Vancomycin Type of Intervention Type of Consult: New start Suspected Infection Suspected Infection: Other Labs Labs: Sodium 128 mmol/L (136-145) L 04/07/24 03:24 Potassium 4.5 mmol/L (3.5-5.1) 04/07/24 03:24 Chloride 95 mmol/L (98-107) L 04/07/24 03:24 Carbon Dioxide 27.0 mmol/L (21.0-32.0) 04/07/24 03:24 Anion Gap 6 (5-15) 04/07/24 03:24 BUN 25 mg/dL (7-18) H 04/07/24 03:24 Creatinine 0.87 mg/dL (0.55-1.02) 04/07/24 03:24 Est GFR (MDRD) Af Amer 80 mL/min (>60) 04/07/24 03:24 Est GFR (MDRD) Non-Af 66 mL/min (>60) 04/07/24 03:24 BUN/Creatinine Ratio 28.6 RATIO (10-20) H 04/07/24 03:24 Glucose 115 mg/dL (74-106) H 04/07/24 03:24 Microbiology Microbiology: Microbiology 04/06/24 17:00 Fluid - Synovial (joint) Body Fluid Culture - Preliminary No growth-Final to follow 04/06/24 17:00 Fluid - Synovial (joint) Body Fluid Culture - Preliminary No growth-Final to follow Goal Trough Goal Trough: 15-20 mcg/mL Pharmacy Plan for Drug Dosing Pharmacy Plan for Drug Dosing: NEW START IV VANCOMYCIN Consulting Physician: Dr. Champagne Indication: Prosthetic joint infection Goal Trough: 15-20 SrCr: 0.87 CrCl: 41 ml/min Comments: Patient had initial dose of 750mg IV x1 ordered and administered 04/07 @1005 Vancomycin Dose: 1000mg IV Q24hr to start 04/08/24 @1000 Pending Level: 04/09/24 @0930, prior to 3rd total dose of vancomycin per protocol Pharmacy Service will continue to monitor and adjust dosing as required.
[2024-04-07] MEDS: TRANEXAMIC ACID 2,000 MG, 0.9% Normal Saline (100mL Bag) 100 ML OPERA.SITE (12:05)
--- NOTE | 2024-04-07 12:15 | PCM.OPRPT ---
Report of Operation Date of Procedure: 04/07/24 Pre-Operative Diagnosis: Periprosthetic joint infection right knee Post-Operative Diagnosis: Periprosthetic joint infection right knee Surgery/Procedure Performed:: Right knee irrigation debridement, complete synovectomy and 1 component revision Description of Surgical Findings:: Copious amounts of purulent fluid were aspirated from the knee. Patient had florid synovitis. 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 Reviewed options were discussed the patient. Based on acuity of the symptoms and organism irrigation debridement with polyethylene exchange is recommended. Risks and benefits of the procedure were discussed with the patient including but not limited to blood loss, DVTs, PEs, neurovascular damage, infection, general risk of anesthesia including loss of life. Demonstrated understanding and was able to sign informed consent. On the date of procedure patient'sR lower extremity was marked in the preoperative area. The patient was then taken back to the operating room where the patient was placed on the table in the supine position. All bony prominences were identified a well-padded. Anesthesia assumed control of the C-spine and airway and remained controlled throughout the remainder of the procedure. A tourniquet was placed on the operative thigh and the leg was prepped in a sterile fashion. The surgeon then scrubbed at this time .Upon reentering the room left lower extremity was draped in a standard orthopedic fashion. A timeout was then called and everyone agreed upon the side, the site, the procedure to be performed, patient's identity and antibiotics given. A midline skin incision was made and sharp dissection was taken down through skin subcutaneous tissue and fat. Appropriate flaps were elevated medially and laterally. His arthrotomy was identified and the standard medial parapatellar incision was made and the patella was subluxed laterally. The standard deep MCL release was done. At this point an aggressive synovectomy commenced. Our attention was first turned towards the subpatellar pouch and all suspicious synovium and tissues were debrided. We then directed our attention towards medial lateral gutters were these tissues were aggressively debrided. Knee was then flexed up the polyethylene was removed. Once polyethylene was removed we did the remainder of the synovium in the medial and lateral gutters and along the lateral structures and MCL. We then debrided the posterior knee. Knee was flexed up and culture was taken from the femoral notch. And also there was a membrane beneath the tibial baseplate that was removed and sent for culture. He had completed our synovectomy and were happy with the joint. We then used a chlorahexadine scrub sponge and physically scrub the metal implants using a scrub sponge but nothing abrasive. We also scrubbed the remainder of the wound with chlorhexidine. 6 L of normal saline were then irrigated throughout the wound with low-pressure lavage and the wound was once again explored. All remaining tissue that was suspicious was seen in the wound was once again irrigated with normal saline. 10 mm polyethylene was then opened and put back into place after appropriate trialing. Tourniquet was let down and hemostasis was obtained as well as possible. Once the final components were placed the wound was copiously irrigated with normal saline solution. The wound was closed in a layer parish fashion using #1 vicryl interrupted sutures for the arthrotomy, 2-0 interrupted Vicryl for the subcuticular layer and christofer for final skin closure. A sterile compressive dressing was then placed. The patient was then awakened from anesthesia, transferred to the [facility] and transferred to the PACU for recovery. Post op plan Patient will continue on antibiotics per primary service. Consult infectious disease. I would consider chronic suppressive antibiotics in this patient as she would be a poor candidate for bilateral antibiotic spacers and has a previous total replacement as well. Will need to hold significant DVT prophylaxis until after tomorrow's procedure. Will make patient n.p.o. after midnight with plan to return to the operating room for left knee irrigation debridement due to delays noted in patient's progress note today. My physician injection molding engineer (PE) was a vital part of this case. They were important in appropriate retraction during the case, and protection of soft tissues during bony cuts. Their intimate knowledge of the case and my steps aided in safe and expedient completion of the procedure as well as appropriate position of the leg during the case. They were also vital in assisting with closure under my direct supervision. Grafts/Implants Used: [employer] ultracongruent size EF 10 mm for femur size 4 through 11 poly Admit VTE Documentation VTE Present on Admission: No VTE Mechan Device Prophylaxis: SCD's and Thigh High PETTY Hose VTE Pharm Prophylaxis ordered?: No Reason prophylaxis not ordered:: Medical Contraindication (Holding DVT prophylaxis until after tomorrow's procedure)
--- NOTE | 2024-04-07 12:58 | PCM.POST.ANE ---
Anesthesia: Postop Eval I Current Vital Signs Temperature: 97.6 F Pulse Rate: 64 Blood Pressure: 129/55 Respiratory Rate: 14 Pulse Ox: 100 Assessment Airway patent: Yes Spontaneous unlabored respirations: Yes nausea: No Vomiting: No Anesthesia Complication: No Fluid Hydration Crystalloid volume administer (ml): 1,000 Total IV fluid infused: 1,000 Progress Note Anesthesia document: Postop Eval 1 completed: Yes
--- NOTE | 2024-04-07 13:01 | PCM.POSTANE2 ---
Anesthesia Postop Eval I Sum Postop Eval Completion status Anesthesia document: Postop Eval 1 completed: Yes Anesthesia Postop Eval I Summary Anesthesia Postop Eval I Summary: Anesthesia Postop Eval I: Assessment Summary Airway patent Yes 04/07/24 12:58 Spontaneous unlabored Yes 04/07/24 12:58 respirations Mental status nausea No 04/07/24 12:58 Vomiting No 04/07/24 12:58 Anesthesia Postop Eval I: Fluid Summary Crystalloid volume administer 1,000 04/07/24 12:58 (ml) Colloids volume administered ( ml) Blood Product volume administered (ml) Total IV fluid infused 1,000 04/07/24 12:58 Anesthesia Postop Eval I: Summary Notes Anesthesia Complication No 04/07/24 12:58 Anesthesia Complication Comment: Post-operative progress note Anesthesia: Postop Eval II Evaluation Mental status: Awake Pain Level: 0 nausea: No Vomiting: No
[2024-04-07] MEDS: Methadone 10 MG Tablet PO ×2 (14:41→23:04)
[2024-04-07] MEDS: Baclofen 10 MG Tablet 5 MG PO ×2 (16:47→20:23)
[2024-04-07 16:51] LABS: Bedside Glucose 87 mg/dL (74-106)
[2024-04-07] MEDS: HYDROmorphone 1 MG/ML Syringe IV ×2 (17:31→23:20)
[2024-04-07] MEDS: KCL 20MEQ in 0.9% NS 20 MEQ/1,000 ML IV.SOLN. 75 MEQ IV (17:32)
[2024-04-07] MEDS: 0.9% Saline Lock 10 ML Syringe IV (17:32)
[2024-04-07] MEDS: MELATONIN 10 MG TABLET PO (23:09)
[2024-04-07] MEDS: Carvedilol 3.125 MG TABLET PO (23:10)
[2024-04-07] MEDS: Pantoprazole Sodium 20 MG Tablet PO (23:14)
[2024-04-07] MEDS: Senna/Docusate Sodium 1 Tablet 2 TABLET PO (23:18)
[2024-04-07] MEDS: Insulin Lispro 100 UNIT/ML INSULN.PEN SC (23:40)
[2024-04-08] VITALS (17 sets, daily range): BP systolic 119–159; BP diastolic 63–85; PULSE 61–86; RESP 16–18; TEMP 36.6–37.3; O2SAT 94–100; BMI 19.6
[2024-04-08 01:21] LABS: Bedside Glucose 174 mg/dL (74-106)
[2024-04-08] MEDS: HYDROmorphone 1 MG/ML Syringe IV ×3 (03:00→11:01)
[2024-04-08] MEDS: Gabapentin 800 MG Tablet PO ×3 (05:19→21:05)
[2024-04-08] MEDS: Baclofen 10 MG Tablet 5 MG PO (05:25)
[2024-04-08 05:44] LABS: Hematocrit 29.7 % (37-47); Hemoglobin 9.4 g/dL (12.0-15.0); Mean Corp Hgb Conc 31.6 g/dL (32-36); Mean Corpuscular Hgb 32.2 pg (27.0-32.0); Mean Corpuscular Volume 101.7 fL (81-99); Platelet Count 481 K/mm3 (150-450); RBC Distribution Width CV 14.5 % (11.6-14.6); RBC Distribution Width SD 53.1 fl (35.1-43.9); Red Blood Count 2.92 M/mm3 (4.2-5.4); White Blood Count 8.8 K/mm3 (4.4-11.0)
[2024-04-08 06:37] LABS: AST(SGOT) 11 U/L (15-37); Alanine Aminotransfer ALT/SGPT < 6 U/L (13-56); Albumin, Serum 2.5 g/dL (3.2-5.0); Alkaline Phosphatase 57 U/L (45-117); Anion Gap 4 (5-15); BUN 15 mg/dL (7-18); BUN/Creat Ratio 25.6 RATIO (10-20); Bilirubin, Direct 0.18 mg/dL (0.00-0.30); Calcium,Total 8.3 mg/dL (8.5-10.1); Chloride 100 mmol/L (98-107); Creatinine, Serum 0.58 mg/dL (0.55-1.02); EST Glomerular Filtration Rate 105 mL/min (>60); Est Glom Filt Rate - Afr Amer 127 mL/min (>60); Estimated Creatinine Clearance 44.63 ml/min; Globulin 3.8 g/dL (2.2-4.2); Glucose 116 mg/dL (74-106); Potassium 4.8 mmol/L (3.5-5.1); Protein, Total 6.3 g/dL (6.4-8.2); Sodium Level 131 mmol/L (136-145)
[2024-04-08 07:20] LABS: Bedside Glucose 105 mg/dL (74-106)
[2024-04-08] MEDS: Ceftriaxone 1 GM/50 ML BAG IV (09:25)
[2024-04-08] MEDS: Carvedilol 3.125 MG TABLET PO ×2 (09:34→21:05)
[2024-04-08] MEDS: Methadone 10 MG Tablet PO ×2 (09:34→16:17)
[2024-04-08] MEDS: Vancomycin IV 1,000 MG/200 ML BAG 200 MG IV (09:36)
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
--- NOTE | 2024-04-08 11:11 | CASEMGMT ---
Social Work SW did print list from [facility] of usp facilities in network w/pt's insurance, in pt's preferred geographic area and complete w/quality and resource use data. SW spoke w/pt in room in regard to discharge plan. Pt is adamant about going home at discharge, states Som lives next door and will be able to help her. SW explained CM/SW will follow up w/her after surgery to reassess the discharge plan. Pt states understanding. SW/CM to follow up tomorrow, once pt has had surgery, PT/OT. KATE Lofton
--- NOTE | 2024-04-08 11:28 | NURSING ---
pt to OR
[2024-04-08 11:58] LABS: Bedside Glucose 110 mg/dL (74-106)
[2024-04-08 13:30] LABS: Pathologist Review Reviewed
[2024-04-08 13:31] LABS: Pathologist Review Reviewed
--- NOTE | 2024-04-08 14:24 | PN.ORTHO_ITS ---
Subjective Subjective Patient was seen and evaluated in the preoperative area. It is noted that the patient has 2 out of 3 positive cultures for gram-negative rods from yesterday's right knee irrigation debridement. Patient is agreeable to proceed with left knee irrigation debridement today. Objective Data Objective Data Vital Signs: Vital Signs Temp Pulse Resp BP Pulse Ox O2 Del Method 98.1 F 86 18 138/85 H 95 Room Air 04/08/24 10:46 04/08/24 10:46 04/08/24 10:46 04/08/24 10:46 04/08/24 10:46 04/08/24 10:46 Oxygen Delivery Method Room Air Weight: 111 lb 1.808 oz Body Mass Index (BMI) 19.6 Intake & Output: Intake and Output for Last 24 Hours 04/06/24 04/07/24 04/08/24 23:59 23:59 23:59 Intake Total 500 / 980 2155 / 2155 50 / 50 Output Total 1300 / 1300 550 / 550 Balance 500 / 380 855 / 855 -500 / -500 Lab / Micro Data 04/08/24 05:30 04/08/24 05:30 Labs: Laboratory Results - last 24 hr 04/06/24 17:00: Fl Crystal Path Review Reviewed 04/06/24 17:00: Fl Crystal Path Review Reviewed 04/07/24 16:29: POC Glucose 87 04/07/24 23:38: POC Glucose 174 H 04/08/24 05:30: WBC 8.8, RBC 2.92 L, Hgb 9.4 L, Hct 29.7 L, MCV 101.7 H, MCH 32.2 H, MCHC 31.6 L, RDW Std Deviation 53.1 H, RDW Coeff of Jaleel 14.5, Plt Count 481 H, MPV 9.0, Sodium 131 L, Potassium 4.8, Chloride 100, Carbon Dioxide 27.0, Anion Gap 4 L, BUN 15, Creatinine 0.58, Estim Creat Clear Calc 44.63, Est GFR (MDRD) Af Amer 127, Est GFR (MDRD) Non-Af 105, BUN/Creatinine Ratio 25.6 H, G lucose 116 H, Calcium 8.3 L, Total Bilirubin 0.40, Direct Bilirubin 0.18, AST 11 L, ALT < 6 L, Alkaline Phosphatase 57, Total Protein 6.3 L, Albumin 2.5 L, Globulin 3.8 04/08/24 06:47: POC Glucose 105 04/08/24 11:17: POC Glucose 110 H Micro: Microbiology 04/07/24 13:00 Tissue - Knee Wound Culture - Preliminary GNR lactose machine carton marker 04/07/24 13:00 Tissue - Knee Wound Culture - Preliminary Gram negative lorie 04/06/24 17:00 Fluid - Synovial (joint) Gram Stain - Final 04/06/24 17:00 Fluid - Synovial (joint) Body Fluid Culture - Preliminary No growth-Final to follow 04/06/24 17:00 Fluid - Synovial (joint) Gram Stain - Final 04/06/24 17:00 Fluid - Synovial (joint) Body Fluid Culture - Preliminary No growth-Final to follow 04/07/24 08:05 Nasal Secretion MRSA (PCR) - Final Assessment & Plan Assessment/Plan (1) Infection of total right knee replacement: PLAN: Postop day 1 irrigation debridement. Wound looks good today. 2 out of 3 positive cultures for gram-negative rods with lactose fermenting. Continue with antibiotics per infectious disease (2) Infection of total left knee replacement: PLAN: Plan is to proceed with the left-sided procedure today. Patient meets criteria for periprosthetic joint infection based on EDIN criteria. Patient is agreeable to treatment plan left leg was marked in the preoperative area.
--- NOTE | 2024-04-08 14:26 | PCM.OPRPT ---
Report of Operation Date of Procedure: 04/08/24 Pre-Operative Diagnosis: Left knee periprosthetic joint infection Post-Operative Diagnosis: Left knee periprosthetic joint infection Surgery/Procedure Performed:: Irrigation debridement, complete synovectomy and 1 component revision left knee replacement Description of Surgical Findings:: Grossly purulent fluid. Complete synovectomy Surgeon: Jose Bolden it auditor: Heraclio Glover Type of Anesthesia: General Anesthesiologist: Michael Nolasco Special Medications: Patient was receiving antibiotics on the floor Specimen's removed: 3 separate specimens were sent to microbiology Estimated Blood Loss (mL): 50 Fluids Replaced: 600 mL crystalloid Description of Procedure: 78 yo f history of l TKA presents with symptoms and laboratory findings consistent with periprosthetic joint infection of the left knee. Reviewed options were discussed the patient. Based on acuity of the symptoms and organism irrigation debridement with polyethylene exchange is recommended. Risks and benefits of the procedure were discussed with the patient including but not limited to blood loss, DVTs, PEs, neurovascular damage, infection, general risk of anesthesia including loss of life. Demonstrated understanding and was able to sign informed consent. On the date of procedure patient's L lower extremity was marked in the preoperative area. The patient was then taken back to the operating room where the patient was placed on the table in the supine position. All bony prominences were identified a well-padded. Anesthesia assumed control of the C-spine and airway and remained controlled throughout the remainder of the procedure. A tourniquet was placed on the operative thigh and the leg was prepped in a sterile fashion. The surgeon then scrubbed at this time .Upon reentering the room left lower extremity was draped in a standard orthopedic fashion. A timeout was then called and everyone agreed upon the side, the site, the procedure to be performed, patient's identity and antibiotics given. A midline skin incision was made and sharp dissection was taken down through skin subcutaneous tissue and fat. Appropriate flaps were elevated medially and laterally. His arthrotomy was identified and the standard medial parapatellar incision was made and the patella was subluxed laterally. The standard deep MCL release was done. At this point an aggressive synovectomy commenced. Our attention was first turned towards the subpatellar pouch and all suspicious synovium and tissues were debrided. We then directed our attention towards medial lateral gutters were these tissues were aggressively debrided. Knee was then flexed up the polyethylene was removed. Once polyethylene was removed we did the remainder of the synovium in the medial and lateral gutters and along the lateral structures and MCL. We then debrided the posterior knee. Knee was flexed up and culture was taken from the femoral notch. And also there was a membrane beneath the tibial baseplate that was removed and sent for culture. He had completed our synovectomy and were happy with the joint. 6 L of normal saline were then irrigated throughout the wound with low-pressure lavage and the wound was once again explored. All remaining tissue that was suspicious was seen in the wound was once again irrigated with normal saline. 10 mm mm polyethylene was then opened and put back into place after appropriate trialing. Tourniquet was let down and hemostasis was obtained as well as possible. Once the final components were placed the wound was copiously irrigated with normal saline solution. The wound was closed in a layer parish fashion using #1 vicryl interrupted sutures for the arthrotomy, 2-0 interrupted Vicryl for the subcuticular layer and nylon sutures for final skin closure. A sterile compressive dressing was then placed. The patient was then awakened from anesthesia, transferred to the [facility] and transferred to the PACU for recovery. Post op plan Antibiotics per primary service. Weightbearing as tolerated, maintain dressing for 5 days postop. If wound heals appropriately remove sutures postop day 13. Patient's participated in a normal total knee postoperative regimen with physical therapy.Would recommend Xarelto or equivalent direct oral anticoagulation medication for at least 2 weeks postoperatively followed by a 2-week regimen of 81 mg aspirin p.o. twice daily for DVT prophylaxis. DVT prophylaxis can begin tomorrow morning. My physician flag football coach (PE) was a vital part of this case. They were important in appropriate retraction during the case, and protection of soft tissues during bony cuts. Their intimate knowledge of the case and my steps aided in safe and expedient completion of the procedure as well as appropriate position of the leg during the case. They were also vital in assisting with closure under my direct supervision. Grafts/Implants Used: [employer] ultracongruent 4-11/EF 10 mm polyethylene component Complications No intraoperative complications were encountered Admit VTE Documentation VTE Present on Admission: No VTE Mechan Device Prophylaxis: SCD's, Thigh High PETTY Hose and None VTE Pharm Prophylaxis ordered?: Yes
--- NOTE | 2024-04-08 14:58 | PCM.POST.ANE ---
Anesthesia: Postop Eval I Current Vital Signs Temperature: 99.1 F Pulse Rate: 64 Blood Pressure: 126/63 Respiratory Rate: 16 Pulse Ox: 96 Oxygen Delivery Method: Room Air Assessment Airway patent: Yes Spontaneous unlabored respirations: Yes Mental status: Awake and Calm nausea: No Vomiting: No Anesthesia Complication: No Fluid Hydration Crystalloid volume administer (ml): 600 Total IV fluid infused: 600 Progress Note Anesthesia document: Postop Eval 1 completed: Yes
--- NOTE | 2024-04-08 15:03 | PN.HOSP_ITS ---
Reason for Visit Reason for Visit: Diagnoses Atherosclerotic heart disease of [place] coronary artery without angina pectoris (04/07/24) Takotsubo syndrome (04/07/24) Difficulty in walking, not elsewhere classified (04/07/24) Infection and inflammatory reaction due to internal right knee prosthesis, initial encounter (04/07/24) Infection and inflammatory reaction due to internal left knee prosthesis, initial encounter (04/07/24) Pain due to internal orthopedic prosthetic devices, implants and grafts, initial encounter (04/07/24) Personal history of other diseases of the circulatory system (04/07/24) Presence of coronary angioplasty implant and graft (04/07/24) Presence of right artificial knee joint (04/07/24) Presence of left artificial knee joint (04/07/24) Objective Data Objective Data Vital Signs: Vital Signs Temp Pulse Resp BP Pulse Ox O2 Del Method 99.1 F 64 16 126/63 H 96 Room Air 04/08/24 14:59 04/08/24 14:59 04/08/24 14:59 04/08/24 14:59 04/08/24 14:59 04/08/24 14:59 Oxygen Delivery Method Room Air Weight: 111 lb 1.808 oz Body Mass Index (BMI) 19.6 Intake & Output: Intake and Output for Last 24 Hours 04/06/24 04/07/24 04/08/24 23:59 23:59 23:59 Intake Total 500 / 980 2155 / 2155 50 / 50 Output Total 1300 / 1300 550 / 550 Balance 500 / 380 855 / 855 -500 / -500 Lab / Micro Data 04/08/24 05:30 04/08/24 05:30 Labs: Laboratory Results - last 24 hr 04/06/24 17:00: Fl Crystal Path Review Reviewed 04/06/24 17:00: Fl Crystal Path Review Reviewed 04/07/24 16:29: POC Glucose 87 04/07/24 23:38: POC Glucose 174 H 04/08/24 05:30: WBC 8.8, RBC 2.92 L, Hgb 9.4 L, Hct 29.7 L, MCV 101.7 H, MCH 32.2 H, MCHC 31.6 L, RDW Std Deviation 53.1 H, RDW Coeff of Jaleel 14.5, Plt Count 481 H, MPV 9.0, Sodium 131 L, Potassium 4.8, Chloride 100, Carbon Dioxide 27.0, Anion Gap 4 L, BUN 15, Creatinine 0.58, Estim Creat Clear Calc 44.63, Est GFR (MDRD) Af Amer 127, Est GFR (MDRD) Non-Af 105, BUN/Creatinine Ratio 25.6 H, G lucose 116 H, Calcium 8.3 L, Total Bilirubin 0.40, Direct Bilirubin 0.18, AST 11 L, ALT < 6 L, Alkaline Phosphatase 57, Total Protein 6.3 L, Albumin 2.5 L, Globulin 3.8 04/08/24 06:47: POC Glucose 105 04/08/24 11:17: POC Glucose 110 H Micro: Microbiology 04/06/24 17:00 Fluid - Synovial (joint) Gram Stain - Final 04/06/24 17:00 Fluid - Synovial (joint) Body Fluid Culture - Preliminary No growth-Final to follow 04/06/24 17:00 Fluid - Synovial (joint) Anaerobic Culture - Preliminary No growth in 48 hours. 04/06/24 17:00 Fluid - Synovial (joint) Gram Stain - Final 04/06/24 17:00 Fluid - Synovial (joint) Body Fluid Culture - Preliminary No growth-Final to follow 04/06/24 17:00 Fluid - Synovial (joint) Anaerobic Culture - Preliminary No growth in 48 hours. 04/07/24 13:00 Tissue - Knee Gram Stain - Final 04/07/24 13:00 Tissue - Knee Wound Culture - Preliminary GNR lactose multiple resaw operator 04/07/24 13:00 Tissue - Knee Gram Stain - Final 04/07/24 13:00 Tissue - Knee Gram Stain - Final 04/07/24 13:00 Tissue - Knee Wound Culture - Preliminary Gram negative lorie 04/07/24 08:05 Nasal Secretion MRSA (PCR) - Final Physical Exam Narrative Seen and examined. No chest pain or shortness of breath. Patient has bilateral knee pain, left more than right knee. Had right knee irrigation and complete synovectomy and today will be done for left knee\ No fever or chills Physical exam General: Alert, Oriented x3, Cooperative HEENT: Atraumatic, PERRLA, EOMI, Normocephalic Oral: No Gingival or Mucosal Lesions/ Ulcerations Neck: Supple, No JVD, Negative Carotid Bruits Chest wall/Lungs: Air entry equal in bilateral lung bases. No crepitation/rhonchi Cardiovascular: Regular rate, Regular Rhythm, Normal S1, Normal S2, No M/G/R Abdomen: Bowel Sounds Present, Soft, Non Tender, Non-Distended : No dysuria. No renal angle tenderness. No suprapubic tenderness. Extremities: No edema, Capillary Refill Less than 3 Seconds Skin: No rashes, No breakdown Musculoskeletal: Right knee status postsurgery with Xavi wrap bandage and ice pack. Left knee is swollen and tender. Neurological: Cranial nerves II-XII grossly intact, DTR 2+/4. No acute focal neurological deficit. Psych/Mental Status: Normal Affect, Appropriate. Assessment & Plan Assessment/Plan (1) Inability to ambulate due to knee: PLAN: Plan #Debility due to acute on chronic bilateral knee pain * Patient was recently admitted and admitted discharged on 04/02/2024 when she complained of similar bilateral knee pain and at that time also had UTI with E. coli being cultured * She refused SNF placement and was discharged home. * She comes in today because of worsening bilateral knee pain. * Admit to [facility] with telemetry. Consult PT OT. Fall precautions. * P.o. Tylenol, patient already on methadone. Will continue this. * X-rays done just on 03/30/2024 showed no fracture or dislocation is stable postsurgical changes from left knee arthroplasty as well as small joint effusion and soft tissue swelling. * consult orthopedic surgery per patient request. * X-rays ordered of the knees. 04/07: Patient had right and left knee arthrocentesis by Dr. Sykes yesterday. Results reviewed. Gram stain and culture pending but shows mainly highly leukocytosis, more than 65,000 with 96% neutrophils, 4% monocytes. Patient does not have fever or tachycardia but BP on lower side 93/51, 105/59 therefore decided to start on IV antibiotics empirically. IV vancomycin and ceftriaxone started. Patient had bilateral knees replaced. Clinically PJI. Twelve-lead EKG individually reviewed. Normal sinus rhythm 62 bpm. Old infarct. QTc 442 ms. Patient was also seen by electroless plater and discussed with Dr. Ayala. Patient had 2 g IV preop. Started on vancomycin and IV ceftriaxone. ID consult for tomorrow AM 04/08: Patient had right knee irrigation, debridement complete synovectomy and 1 component revision on 04/07 and similar surgery for right left knee today. Patient was seen by ID and advised to continue empiric vancomycin and ceftriaxone. She also has history of frequent UTI. Patient was taken to the OR and postop diagnosis periprosthetic joint infection). And right knee irrigation and debridement, complete synovectomy and 1 component revision #Leukocytosis: WBCs 27.1. Due to PJI Improvement in leukocytosis. #Hypertension: On amlodipine benazepril and carvedilol. IV hydralazine as needed. #CAD s/p stents: On aspirin and carvedilol as well as Plavix and high intensity statin. Patient had PCI by Dr. Reid on January 2024. History of Takotsubo cardiomyopathy with improvement of LV function to normal. Once hemostasis resumed, antiplatelet resume, low-dose aspirin and Brilinta 90 mg twice daily. #Type 2 diabetes mellitus: On metformin. Insulin sliding scale. Tactics ACHS. #History of rheumatoid arthritis: On methotrexate DVT prophylaxis: lovenox Code status:DNRCCA no intubation * Patient counseled extensively about different types of CODE STATUS including full code, DNR CCA and DNR CCA. Patient elects to be DNRCCA no intubation. Charges/Coding Visit Charges Inpatient E&M: 28294 Subs Hosp L2
[2024-04-08] MEDS: Pantoprazole Sodium 20 MG Tablet PO ×2 (15:46→21:05)
[2024-04-08] MEDS: Lisinopril 20 MG Tablet PO (15:47)
[2024-04-08] MEDS: HYDROmorphone 0.5 MG/0.5 ML SYRINGE IV ×2 (16:17→21:05)
[2024-04-08 17:08] LABS: Bedside Glucose 89 mg/dL (74-106)
[2024-04-08] MEDS: MELATONIN 10 MG TABLET PO (21:05)
[2024-04-08] MEDS: Lactobacillis Acidophilus 1 CAP PO (21:06)
[2024-04-08 22:28] LABS: Bedside Glucose 120 mg/dL (74-106)
[2024-04-09] VITALS: BP 134/76; PULSE 72; RESP 18; TEMP 36.7; O2SAT 99
[2024-04-09] MEDS: Methadone 10 MG Tablet PO ×3 (01:18→20:22)
[2024-04-09 04:00] VITALS: BP 128/70; PULSE 69; RESP 16; TEMP 36.6; O2SAT 94
[2024-04-09] MEDS: HYDROmorphone 0.5 MG/0.5 ML SYRINGE IV (04:21)
[2024-04-09] MEDS: Gabapentin 800 MG Tablet PO ×3 (05:22→21:55)
[2024-04-09] MEDS: Rivaroxaban 10 MG Tablet PO (05:22)
[2024-04-09 06:28] LABS: Bedside Glucose 107 mg/dL (74-106)
[2024-04-09 06:59] LABS: Hematocrit 27.5 % (37-47); Hemoglobin 8.6 g/dL (12.0-15.0); Mean Corp Hgb Conc 31.3 g/dL (32-36); Mean Corpuscular Hgb 31.9 pg (27.0-32.0); Mean Corpuscular Volume 101.9 fL (81-99); Mean Platelet Vol. 9.4 fl (6.2-12.0); Platelet Count 512 K/mm3 (150-450); RBC Distribution Width CV 14.6 % (11.6-14.6); RBC Distribution Width SD 53.3 fl (35.1-43.9); White Blood Count 6.7 K/mm3 (4.4-11.0)
[2024-04-09 07:13] LABS: Anion Gap 4 (5-15); BUN 11 mg/dL (7-18); BUN/Creat Ratio 19.3 RATIO (10-20); Calcium,Total 7.9 mg/dL (8.5-10.1); Chloride 100 mmol/L (98-107); Creatinine, Serum 0.57 mg/dL (0.55-1.02); EST Glomerular Filtration Rate 108 mL/min (>60); Est Glom Filt Rate - Afr Amer 131 mL/min (>60); Estimated Creatinine Clearance 44.63 ml/min; Glucose 107 mg/dL (74-106); Potassium 4.5 mmol/L (3.5-5.1); Sodium Level 131 mmol/L (136-145)
[2024-04-09] MEDS: Carvedilol 3.125 MG TABLET PO ×2 (07:29→21:59)
[2024-04-09] MEDS: HYDROmorphone 1 MG/ML Syringe IV (07:34)
[2024-04-09] MEDS: Aspirin E.C. 81 MG Tablet PO (07:34)
[2024-04-09] MEDS: Clopidogrel Bisulfate 75 MG Tablet PO ×2 (07:35→07:55)
[2024-04-09] MEDS: Lactobacillis Acidophilus 1 CAP PO ×2 (07:35→21:55)
[2024-04-09] MEDS: Spironolactone 25 MG Tablet PO (07:35)
[2024-04-09] MEDS: amLODIPine 10 MG Tablet PO (07:36)
[2024-04-09] MEDS: Polyethylene Glycol 3350 17 GM PACKET PO (07:36)
[2024-04-09 07:53] VITALS: BP 121/64; PULSE 71; RESP 18; TEMP 37.3; O2SAT 95
[2024-04-09] MEDS: Folic Acid 1 MG Tablet 2 MG PO (07:55)
--- NOTE | 2024-04-09 08:17 | NURSING ---
Mt MONTOYA from [facility] at bedside this am, pt tearful during PETTY hose removal drsg. examination and PETTY hose replacement-pt refused to even dangle at bedside last night and this am, pt is refusing therapy today screaming I AM NOT GETTING OUT OF THIS BED TODAY! Mt MONTOYA and this nurse both reviewed risks that are greatly increased and progress not made by not doing recommended therapy and pt screamed I DONT CARE! I AM NOT GETTING OUT OF THIS BED TODAY-pt asked fro trapeze which was applied to bed-this nurse instructed pt to be frequently ,moving her ankles like she is pushing the gas pedal and then how to do alphabet (outlining with her big toe) at least hourly-also to try and bend her knees often to prevent stiffness and complications-
--- NOTE | 2024-04-09 08:47 | PCM.PN.ORT ---
Subjective Subjective The patient was sitting in bed upon examination. Patient denies any chest pain, shortness of breath, dizziness, lightheadedness, nausea or vomiting, or calf pain. Patient is complaining of significant pain in bilateral knees. She is refusing to move to the nurses. She is also telling me today that she will not get out of this bed and refusing for any motion. Patient is on chronic methadone for pain control for back issues. Patient had previous urinary tract infection in which she developed knee pain after this. Jose Bolden performed bilateral irrigation debridement with complete synovectomy and 1 component revision of bilateral knees. The right knee was performed on April 07, 2020 for the left knee April 08, 2024. Objective Data Objective Data Vital Signs: Vital Signs Temp Pulse Resp BP Pulse Ox O2 Del Method 99.1 F 71 18 121/64 H 95 Room Air 04/09/24 07:53 04/09/24 07:53 04/09/24 07:53 04/09/24 07:53 04/09/24 07:53 04/09/24 07:53 Oxygen Delivery Method Room Air Weight: 50.4 kg Body Mass Index (BMI) 19.6 Intake & Output: Intake and Output for Last 24 Hours 04/07/24 04/08/24 04/09/24 23:59 23:59 23:59 Intake Total 2155 / 2155 850 / 850 Output Total 1300 / 1300 800 / 1700 1999 Balance 855 / 855 50 / -850 -1999 / Lab / Micro Data 04/09/24 05:26 04/09/24 05:26 Labs: Laboratory Results - last 24 hr 04/06/24 17:00: Fl Crystal Path Review Reviewed 04/06/24 17:00: Joaquin Crystal Path Review Reviewed 04/08/24 11:17: POC Glucose 110 H 04/08/24 16:51: POC Glucose 89 04/08/24 21:03: POC Glucose 120 H 04/09/24 05:26: WBC 6.7, RBC 2.70 L, Hgb 8.6 L, Hct 27.5 L, MCV 101.9 H, MCH 31.9, MCHC 31.3 L, RDW Std Deviation 53.3 H, RDW Coeff of Jaleel 14.6, Plt Count 512 H, MPV 9.4, Sodium 131 L, Potassium 4.5, Chloride 100, Carbon Dioxide 27.0, Anion Gap 4 L, BUN 11, Creatinine 0.57, Estim Creat Clear Calc 44.63, Est GFR (MDRD) Af Amer 131, Est GFR (MDRD) Non-Af 108, BUN/Creatinine Ratio 19.3, Glucose 107 H, Calcium 7.9 L 04/09/24 06:09: POC Glucose 107 H Micro: Microbiology 04/08/24 Unknown Tissue - Knee Wound Culture - Preliminary Gram negative lorie 04/07/24 13:00 Tissue - Knee Gram Stain - Final 04/07/24 13:00 Tissue - Knee Wound Culture - Preliminary GNR lactose merchandise team manager 04/07/24 13:00 Tissue - Knee Gram Stain - Final 04/07/24 13:00 Tissue - Knee Wound Culture - Final Serratia marcescens 04/07/24 13:00 Tissue - Knee Gram Stain - Final 04/07/24 13:00 Tissue - Knee Wound Culture - Preliminary Serratia marcescens GNR Poss Pseudomonas sp 04/06/24 17:00 Fluid - Synovial (joint) Gram Stain - Final 04/06/24 17:00 Fluid - Synovial (joint) Body Fluid Culture - Preliminary No growth-Final to follow 04/06/24 17:00 Fluid - Synovial (joint) Anaerobic Culture - Preliminary No growth in 48 hours. 04/06/24 17:00 Fluid - Synovial (joint) Gram Stain - Final 04/06/24 17:00 Fluid - Synovial (joint) Body Fluid Culture - Preliminary No growth-Final to follow 04/06/24 17:00 Fluid - Synovial (joint) Anaerobic Culture - Preliminary No growth in 48 hours. 04/07/24 08:05 Nasal Secretion MRSA (PCR) - Final Physical Exam Narrative Vital signs stable and afebrile. SCDs and PETTY hose are in place bilaterally Patient is able to plantarflex and dorsiflex actively. Sensation is intact to light touch to saphenous, sural, superficial and deep peroneal, and tibial distribution. Right knee dressing is clean dry and intact. Left knee I did have to remove the PETTY hose to take off the Xavi wrap. Patient was very painful upon doing this. The dressing was clean dry and intact. Negative Homans bilaterally, negative signs and symptoms of DVT. Const alert and oriented x3 Assessment & Plan Assessment/Plan (1) Infection of total left knee replacement: PLAN: 1. S/P irrigation debridement with complete synovectomy and 1 component revision left knee replacement POD #1, irrigation debridement with complete synovectomy and 1 component revision right total knee replacement POD #2 2. Continue Pain Medications: Deferred to medicine. She is currently on Tylenol and methadone. She is on chronic pain medications for chronic back pain 3. DVT Prophylaxis: Defer to medicine but would recommend Xarelto or equivalent direct oral anticoagulation medication for at least 2 weeks postoperatively followed by 2-week regimen of aspirin 81 mg twice daily for DVT prophylaxis. Okay to begin anticoagulation today. 4. PT/OT: Weightbearing as tolerated with walker 5. H & H: 8.6/27.5, asymptomatic. Upon review of previous labs it does appear patient has acute on chronic anemia. I would defer any further treatment to medicine. Clinically patient denies any dizziness or lightheadedness. Vitals appear stable. 6. Continue recommendations from infectious disease: Patient is currently on IV vancomycin and ceftriaxone. Upon review of microbiology on the right knee patient had positive on 3 of 3 cultures for gram-negative lorie with possible Pseudomonas, gram-negative lorie lactose merchandise team manager and Serratia marcescens. With regards to microbiology on the left knee cultures are positive for gram-negative lorie currently on 2 of 3 cultures. 7. Encouraged Incentive Spirometry 8. Patient is aware of postoperative constipation that can occur from 1-3 days postoperatively. Will continue with senna 2 tablets twice daily until first bowel movement. Patient was advised if not having a bowel movement after day 3 she is to contact orthopedics so appropriate change can be made. Patient voiced understanding. 9. Continue postoperative medical treatment per medicine 10. Disposition: Patient will require recommendations from infectious disease. Patient has positive cultures on bilateral knees. Please see microbiology results in chart. Patient does have some acute on chronic anemia and chronic pain management. I would defer to medicine for further treatment. I had discussion with the patient on the importance of getting up to bedside chair. Patient is absolutely refusing any movement or getting out of bed. I did advise her of the increased risk for DVTs, lung complications or pulmonary embolism. Patient states that she does not care and would rather than get out of bed. Ultimately upon discharge patient will require 2-week follow-up with orthopedics for suture removal and x-rays. We will continue to follow as infectious disease needs to evaluate the patient for appropriate treatment. I have reviewed the [place] Automated Rx Reporting System (OARRS) report for this patient for refill pattern and other prescriber involvement as part of the appropriate surveillance for the provision of acute and chronic controlled medications. The report was requested and reviewed on the date of this entry and was considered in the prescribing process. This dictation was created using voice recognition software. Phonetic and/or grammatical errors may exist. (2) Infection of total right knee replacement: (3) Pain due to total left knee replacement: (4) Pain due to total right knee replacement:
[2024-04-09] MEDS: Ceftriaxone 1 GM/50 ML BAG IV (09:33)
--- NOTE | 2024-04-09 10:30 | CASEMGMT ---
Readmission Note: Index: 03/30-04/02. Dx: UTI Readmission: 04/07/24. Dx: BL Knee Pain, Leukocytosis On index admission, the pt was discharged with a new prescription for Cefdinir. This RN NISHA called the pt after DC for the DC follow-up phone call. At that time, the pt stated that she was able to get her medication and take it accordingly. Pt also states that she was able to follow up with her urologist. This RN CM to the pt room at this time and confirms this information. Pt also reports that she was unable to f/u with her PCP d/t timing/ scheduling. Pt also reports that she is active with the cardiac rehab program at [facility] and attends this every M//. Pt had surgery done yesterday and has been refusing to move since. Pt has been refusing to move with nursing, PT, and the orthopedic PA. The patient states that she is too painful at this time. Moving forward, the pt plans to DC home once she is medically stable. Pt states that she has a neighbor named Som who provides support. Pt is adamant about not going to a SNF or having HHC set up. However, pt states that she would be interested in attending OP Tx. Pt is unsure if she would like to go to [facility] or [facility]. This RN NISHA told the pt that we can follow the pt progression in the hospital to then decide what the safest/ best DC plan will be since the pt is too painful to move at this time. Pt also states that she drives and has all the DME that she needs. CM to follow.
--- NOTE | 2024-04-09 10:32 | PCM.PN.ID ---
Physical Exam Narrative Knees are sore, no fever, no n/v/d. Const alert and no apparent distress General Appearance: cooperative Resp normal air movement and clear to auscultation bilaterally Cardio regular rate and regular rhythm GI soft to palpation, non-tender and non-distended Skin no rashes or lesions noted ID ID: Route of nutrition/ use of supplements: [] Nutritional Intake: [] IV Site: [] Wong Catheter: [] Assessment & Plan Assessment/Plan (1) Infection of total right knee replacement: PLAN: OR 04/07/24 for R knee PJI. OR 04/08/24 for L knee. Fluid and surg cx with GNR, serratia, possible pseudomonas. Will change abx to zosyn, order picc. Has h/o frequent uti. Will follow (2) Infection of total left knee replacement:
[2024-04-09 10:39] LABS: Vancomycin, Trough Level 6.4 ug/mL (5.0-15.0)
[2024-04-09] MEDS: Piperacil/Tazobactam 3.375 GM in 0.9% Normal Saline (50mL MB+) 50 ML IV ×2 (10:57→21:51)
[2024-04-09] MEDS: Lisinopril 20 MG Tablet PO (10:59)
[2024-04-09] MEDS: Pantoprazole Sodium 20 MG Tablet PO ×2 (10:59→22:00)
[2024-04-09] MEDS: DULoxetine Hcl 60 MG Capsule PO (10:59)
--- NOTE | 2024-04-09 11:06 | NURSING ---
med started as soon as it arrived to unit
[2024-04-09 11:26] VITALS: BP 118/66; PULSE 74; RESP 18; TEMP 36.7; O2SAT 95
[2024-04-09] MEDS: Acetaminophen 500 MG Tablet 1000 MG PO ×2 (11:38→21:54)
[2024-04-09] MEDS: Baclofen 10 MG Tablet 5 MG PO (11:41)
--- NOTE | 2024-04-09 11:54 | CASEMGMT ---
Addendum entered by Leida Beatty 04/09/24 12:18: Jordan from [facility] called back and stated someone will come speak with pt. Original Note: Notified by CM that pt would like someone from [facility] to come and speak with her. RN CM called cardiac rehab and left VM to see if someone can come speak with pt in there room.
[2024-04-09 12:05] LABS: Bedside Glucose 153 mg/dL (74-106)
--- NOTE | 2024-04-09 13:45 | PN.HOSP_ITS ---
Reason for Visit Reason for Visit: Diagnoses Atherosclerotic heart disease of [place] coronary artery without angina pectoris (04/07/24) Takotsubo syndrome (04/07/24) Difficulty in walking, not elsewhere classified (04/07/24) Infection and inflammatory reaction due to internal right knee prosthesis, initial encounter (04/07/24) Infection and inflammatory reaction due to internal left knee prosthesis, initial encounter (04/07/24) Pain due to internal orthopedic prosthetic devices, implants and grafts, initial encounter (04/07/24) Personal history of other diseases of the circulatory system (04/07/24) Presence of coronary angioplasty implant and graft (04/07/24) Presence of right artificial knee joint (04/07/24) Presence of left artificial knee joint (04/07/24) Objective Data Objective Data Vital Signs: Vital Signs Temp Pulse Resp BP Pulse Ox O2 Del Method 98.1 F 74 18 118/66 95 Room Air 04/09/24 11:26 04/09/24 11:26 04/09/24 11:26 04/09/24 11:26 04/09/24 11:26 04/09/24 11:26 Oxygen Delivery Method Room Air Weight: 111 lb 1.808 oz Body Mass Index (BMI) 19.6 Intake & Output: Intake and Output for Last 24 Hours 04/07/24 04/08/24 04/09/24 23:59 23:59 23:59 Intake Total 2155 / 2155 850 / 850 Output Total 1300 / 1300 800 / 1700 1999 / 1999 Balance 855 / 855 50 / -850 -1999 / Lab / Micro Data 04/09/24 05:26 04/09/24 05:26 Labs: Laboratory Results - last 24 hr 04/06/24 17:00: Fluid Crystals See PATH REV 04/06/24 17:00: Fluid Crystals See PATH REV, Fluid Crystal Source SYNOVIAL 04/06/24 17:00: Fluid Crystal Source SYNOVIAL, Fl Crystal Path Review Reviewed 04/06/24 17:00: Fl Crystal Path Review Reviewed, Synovial Source RIGHT KNEE 04/06/24 17:00: Synovial Source LEFT KNEE, Synovial Color Yellow 04/06/24 17:00: Synovial Color Yellow, Synovial Appearance Cloudy 04/06/24 17:00: Synovial Appearance Cloudy, Synovial WBC 64.4500 H 04/06/24 17:00: Synovial WBC 65.2300 H, Synovial RBC 25 H 04/06/24 17:00: Synovial RBC 0.004 H, Synovial Tot Cell Ct 64.7700 H 04/06/24 17:00: Synovial Tot Cell Ct 65.4300 H, Synov Polynuclear WBCs 63.894 04/06/24 17:00: Synov Polynuclear WBCs 63.805, Synov Mononuclear WBCs 3.287 04/06/24 17:00: Synov Mononuclear WBCs 2.649, Synovial Neutrophils 94 H 04/06/24 17:00: Synovial Neutrophils 96 H, Synovial Monocytes 6 04/06/24 17:00: Synovial Monocytes 4, Synovial Polynuclear % 95.1 04/06/24 17:00: Synovial Polynuclear % 96.0, Synovial Mononuclear % 4.9 04/06/24 17:00: Synovial Mononuclear % 4.0, Synovial Path Comment May follow 04/06/24 17:00: Synovial Path Comment May follow 04/08/24 16:51: POC Glucose 89 04/08/24 21:03: POC Glucose 120 H 04/09/24 05:26: WBC 6.7, RBC 2.70 L, Hgb 8.6 L, Hct 27.5 L, MCV 101.9 H, MCH 31.9, MCHC 31.3 L, RDW Std Deviation 53.3 H, RDW Coeff of Jaleel 14.6, Plt Count 512 H, MPV 9.4, Sodium 131 L, Potassium 4.5, Chloride 100, Carbon Dioxide 27.0, Anion Gap 4 L, BUN 11, Creatinine 0.57, Estim Creat Clear Calc 44.63, Est GFR (MDRD) Af Amer 131, Est GFR (MDRD) Non-Af 108, BUN/Creatinine Ratio 19.3, G lucose 107 H, Calcium 7.9 L 04/09/24 06:09: POC Glucose 107 H 04/09/24 09:50: Vancomycin Trough 6.4 04/09/24 11:36: POC Glucose 153 H Micro: Microbiology 04/08/24 Unknown Tissue - Knee Gram Stain - Final 04/08/24 Unknown Tissue - Knee Wound Culture - Preliminary Gram negative lorie 04/08/24 Unknown Tissue - Knee Gram Stain - Final 04/08/24 Unknown Tissue - Knee Wound Culture - Preliminary Gram negative lorie 04/08/24 Unknown Tissue - Knee Gram Stain - Final 04/08/24 Unknown Tissue - Knee Wound Culture - Preliminary Gram negative lorie 04/06/24 17:00 Fluid - Synovial (joint) Gram Stain - Final 04/06/24 17:00 Fluid - Synovial (joint) Body Fluid Culture - Preliminary Staphylococcus species 04/06/24 17:00 Fluid - Synovial (joint) Anaerobic Culture - Preliminary No growth in 48 hours. 04/06/24 17:00 Fluid - Synovial (joint) Gram Stain - Final 04/06/24 17:00 Fluid - Synovial (joint) Body Fluid Culture - Preliminary Staphylococcus species 04/06/24 17:00 Fluid - Synovial (joint) Anaerobic Culture - Preliminary No growth in 48 hours. 04/07/24 08:13 Blood Culture (Wb) - Right Hand Blood Culture - Preliminary No growth in 48 hours. 04/07/24 13:00 Tissue - Knee Gram Stain - Final 04/07/24 13:00 Tissue - Knee Wound Culture - Preliminary GNR lactose customs compliance analyst 04/07/24 13:00 Tissue - Knee Anaerobic Culture - Preliminary No growth in 48 hours. 04/07/24 13:00 Tissue - Knee Gram Stain - Final 04/07/24 13:00 Tissue - Knee Wound Culture - Final Serratia marcescens 04/07/24 13:00 Tissue - Knee Anaerobic Culture - Preliminary Checking for anaerobes, further studies to follow. 04/07/24 13:00 Tissue - Knee Gram Stain - Final 04/07/24 13:00 Tissue - Knee Wound Culture - Preliminary Serratia marcescens GNR Poss Pseudomonas sp 04/07/24 13:00 Tissue - Knee Anaerobic Culture - Preliminary Checking for anaerobes, further studies to follow. 04/07/24 08:05 Nasal Secretion MRSA (PCR) - Final Physical Exam Narrative Seen and examined. No chest pain or shortness of breath. Patient has bilateral knee pain, left more than right knee. Had right knee irrigation and complete synovectomy on 04/07 and left knee irrigation and complete synovectomy on 04/08. No fever or chills Physical exam General: Alert, Oriented x3, Cooperative HEENT: Atraumatic, PERRLA, EOMI, Normocephalic Oral: No Gingival or Mucosal Lesions/ Ulcerations Neck: Supple, No JVD, Negative Carotid Bruits Chest wall/Lungs: Air entry equal in bilateral lung bases. No crepitation/rhonchi Cardiovascular: Regular rate, Regular Rhythm, Normal S1, Normal S2, No M/G/R Abdomen: Bowel Sounds Present, Soft, Non Tender, Non-Distended : No dysuria. No renal angle tenderness. No suprapubic tenderness. Extremities: No edema, Capillary Refill Less than 3 Seconds Skin: No rashes, No breakdown Musculoskeletal: Right knee status postsurgery with Xavi wrap bandage and ice pack. Left knee with Xavi wrap bandage and tender Neurological: Cranial nerves II-XII grossly intact, DTR 2+/4. No acute focal neurological deficit. Psych/Mental Status: Normal Affect, Appropriate. Assessment & Plan Assessment/Plan (1) Inability to ambulate due to knee: PLAN: Plan #Debility due to acute on chronic bilateral knee pain * Patient was recently admitted and admitted discharged on 04/02/2024 when she complained of similar bilateral knee pain and at that time also had UTI with E. coli being cultured * She refused SNF placement and was discharged home. * She comes in today because of worsening bilateral knee pain. * Admit to [facility] with telemetry. Consult PT OT. Fall precautions. * P.o. Tylenol, patient already on methadone. Will continue this. * X-rays done just on 03/30/2024 showed no fracture or dislocation is stable postsurgical changes from left knee arthroplasty as well as small joint effusion and soft tissue swelling. * consult orthopedic surgery per patient request. * X-rays ordered of the knees. 04/07: Patient had right and left knee arthrocentesis by Dr. Sykes yesterday. Results reviewed. Gram stain and culture pending but shows mainly highly leukocytosis, more than 65,000 with 96% neutrophils, 4% monocytes. Patient does not have fever or tachycardia but BP on lower side 93/51, 105/59 therefore decided to start on IV antibiotics empirically. IV vancomycin and ceftriaxone started. Patient had bilateral knees replaced. Clinically PJI. Twelve-lead EKG individually reviewed. Normal sinus rhythm 62 bpm. Old infarct. QTc 442 ms. Patient was also seen by shank sorter and discussed with Dr. Ayala. Patient had 2 g IV preop. Started on vancomycin and IV ceftriaxone. ID consult for tomorrow AM 04/08: Patient had right knee irrigation, debridement complete synovectomy and 1 component revision on 04/07 and similar surgery for left knee today. Patient was seen by ID and advised to continue empiric vancomycin and ceftriaxone. She also has history of frequent UTI. 04/09: Left knee irrigation and synovectomy on 04/08. Joint fluid and surgical culture growing GNR, Serratia with possible Pseudomonas. IV antibiotic changed to Zosyn. PICC line ordered. ID follow-up reviewed. #Leukocytosis: WBCs 27.1. Due to PJI Improvement in leukocytosis. #Hypertension: On amlodipine benazepril and carvedilol. IV hydralazine as needed. #CAD s/p stents: On aspirin and carvedilol as well as Plavix and high intensity statin. Patient had PCI by Dr. Reid on January 2024. History of Takotsubo cardiomyopathy with improvement of LV function to normal. Once hemostasis resumed, antiplatelet resume, low-dose aspirin and Brilinta 90 mg twice daily. #Type 2 diabetes mellitus: On metformin. Insulin sliding scale. Tactics ACHS. #History of rheumatoid arthritis: On methotrexate DVT prophylaxis: lovenox Code status:DNRCCA no intubation * Patient counseled extensively about different types of CODE STATUS including full code, DNR CCA and DNR CCA. Patient elects to be DNRCCA no intubation. Charges/Coding Visit Charges Inpatient E&M: 05576 Subs Hosp L2
--- NOTE | 2024-04-09 14:07 | PCM.OP.PRO ---
Procedure Report Date of Procedure: 04/09/24 Assessment & Plan Assessment/Plan (1) Infection of total right knee replacement: QUALIFIERS: Encounter type: initial encounter Qualified Code(s): T84.53XA - Infection and inflammatory reaction due to internal right knee prosthesis, initial encounter Procedures Radiology Radiology Access Procedures: PICC Procedure Time Out Time Out Informed consent given: Yes Consent signed: Yes Time out checklist: patient, procedure, site marked/identified, positioning of patient, supplies available and allergies confirmed Time out staff in room: Yes Time out verified: Yes Time out date: 04/09/24 Time out time: 12:53 PICC Line Consent Screening tool completed:: Yes Consent obtained:: Yes Consent given by (patient or responsible libertarian):: PATIENT Line successful (if no, document why in comments):: Yes Insertion Reason for Insertion: [place] Medication Date of Insertion: 04/09/24 Ok to use: Yes Type of PICC inserted: Single Power PICC PICC Lot #: [id number] PICC Reference #: [id number] Microintroducer Used: Yes (in kit) Ultrasound/Equipment Used: Probe Cover Kit Trimmed Length (cm): 37 Insertion Length (cm): 37 Exposed Length (cm): 0 Tip Placement: Caval Atrial Junction Placement Confirmation: 3CG Insertion Vein: Right Brachial Insertion Attempts: 1 Local Anesthesia Used: Lidocaine 1% (in kit) Dressing Applied: Statlock and Tegaderm CHG Arm Measurement above site (in cm): 23 Patient Tolerated Procedure: Well Threading Difficulties: No Comments Comment: Patient identity was verified with two patient identifiers. Informed consent was obtained and time-out was completed. Hands were sanitized. The patient was positioned supine with right arm at 90 degrees. The patient's upper arm vasculature was assessed using ultrasound. Patency of the right brachial vein was confirmed and the vein was externally marked. An external measurement was obtained of 37 cm. External leads were applied to the patient's right upper chest and laterally and inferior of the umbilicus on the mid axillary line. Cap, mask, and prep gloves were donned. The underdrape was placed under the patient's arm. The site was prepped with chlorhexidine, and tourniquet was loosely applied. Prep gloves were discarded, and hands were sanitized. The sterile kit was opened with additional supplies dropped in. Sterile gown and gloves were donned, and the patient was draped. The sterile kit was assembled with needle, introducer, needless connector, and catheter lumen flushed with sterile normal saline. The marked site of insertion was anesthetized with 1% lidocaine from the kit. Patient tolerated well. The right brachial vein was then accessed using ultrasound guidance and guidewire was inserted to safety yancy. The tourniquet was released. The access needle was removed while securing the guidewire in place. The site was again anesthetized with 1% lidocaine, prior to insertion of introducer sheath and dilator. Patient tolerated the insertion well. The catheter was trimmed to a length of 37 cm. Using 3C guidance, the catheter was then inserted through the introducer sheath, slowly. There was no resistance on insertion. The catheter followed the expected course of the vessel using 3CG tracking. The introducer sheath was retracted and peeled away, incrementally, while keeping the catheter secured. Maximal p-wave, without deflection, confirming placement in the cavoatrial junction, was obtained at an insertion length of 37 cm, leaving 0 cm external. The stylet was removed. A flushed needleless connector was attached to the lumen. Aspiration of the lumen was performed to remove any air and confirm blood return. Blood return was verified and the lumen was flushed with 10 ml of sterile normal saline in a pulsatile fashion. The lumen was clamped with the last pulsed flush. Total sterile flushes used for the insertion was 5 10 ml syringes, 1 from the kit. Finally, the insertion site was cleaned with chlorhexidine, and the catheter was secured using a StatLock. The site was covered with a Tegaderm CHG Dressing and disinfecting caps were applied. Baseline arm circumference was obtained at the insertion site and measured 23 cm. The patient was provided with a patient education handout on PICC line care of infection prevention, heavy lifting restriction, maintaining mobility, and watching for any signs of infection. The primary nurse is aware that the PICC line is ready for use.
[2024-04-09 20:19] VITALS: BP 106/63; PULSE 66; RESP 18; TEMP 36.5; O2SAT 98
[2024-04-09 21:27] LABS: Hemoglobin 8.8 g/dL (12.0-15.0)
[2024-04-09] MEDS: Menthol/Lanolin/Calamine/Znox 113 GM Tube 1 APPLIC TOPICAL (21:53)
[2024-04-09] MEDS: MELATONIN 10 MG TABLET PO (21:55)
[2024-04-09 21:57] VITALS: BP 134/60; PULSE 65
[2024-04-09 22:38] LABS: Bedside Glucose 128 mg/dL (74-106)
[2024-04-10 03:12] VITALS: BP 118/61; PULSE 65; RESP 16; TEMP 37; O2SAT 96
[2024-04-10] MEDS: Baclofen 10 MG Tablet 5 MG PO ×2 (03:17→11:46)
[2024-04-10 05:06] LABS: Absolute Lymphocyte Count 1.24 X10^3/uL (0.83-4.51); Absolute Neutrophil Count 3.9 X10^3/uL (2.0-7.7); Basophil# 0.03 X10^3/uL; Basophil% 0.5 % (0-1); Eosinophil# 0.08 X10^3/uL; Eosinophils% 1.4 % (0-5); Hematocrit 26.8 % (37-47); Hemoglobin 8.4 g/dL (12.0-15.0); Lymphocyte # 1.24 X10^3/ul (0.83-4.51); Lymphocyte % 21.1 % (19-41); Mean Corp Hgb Conc 31.3 g/dL (32-36); Mean Corpuscular Hgb 31.3 pg (27.0-32.0); Mean Platelet Vol. 9.3 fl (6.2-12.0); Monocyte# 0.59 X10^3/uL; NRBC Flagged by Analyzer 0 % (0-5); Neutrophil # 3.93 X10^3/uL (2.7-7.7); Neutrophil % 66.7 % (47-70); Platelet Count 462 K/mm3 (150-450); RBC Distribution Width CV 14.2 % (11.6-14.6); RBC Distribution Width SD 51.5 fl (35.1-43.9); Red Blood Count 2.68 M/mm3 (4.2-5.4); White Blood Count 5.9 K/mm3 (4.4-11.0)
[2024-04-10 05:30] LABS: Anion Gap 4 (5-15); BUN 8 mg/dL (7-18); BUN/Creat Ratio 15.2 RATIO (10-20); Calcium,Total 8.2 mg/dL (8.5-10.1); Chloride 99 mmol/L (98-107); Creatinine, Serum 0.53 mg/dL (0.55-1.02); EST Glomerular Filtration Rate 118 mL/min (>60); Est Glom Filt Rate - Afr Amer 143 mL/min (>60); Estimated Creatinine Clearance 44.63 ml/min; Glucose 118 mg/dL (74-106); Potassium 4.1 mmol/L (3.5-5.1); Sodium Level 131 mmol/L (136-145)
[2024-04-10] MEDS: Insulin Lispro 100 UNIT/ML INSULN.PEN SC ×2 (06:32→16:38)
[2024-04-10] MEDS: Acetaminophen 500 MG Tablet 1000 MG PO ×3 (06:33→22:12)
[2024-04-10] MEDS: Gabapentin 800 MG Tablet PO ×3 (06:33→22:15)
[2024-04-10] MEDS: Piperacil/Tazobactam 3.375 GM in 0.9% Normal Saline (50mL MB+) 50 ML IV (06:34)
[2024-04-10] MEDS: Rivaroxaban 10 MG Tablet PO (06:34)
--- NOTE | 2024-04-10 07:14 | PCM.PN.HOSP ---
Reason for Visit Reason for Visit: Diagnoses Atherosclerotic heart disease of [place] coronary artery without angina pectoris (04/07/24) Takotsubo syndrome (04/07/24) Difficulty in walking, not elsewhere classified (04/07/24) Infection and inflammatory reaction due to internal right knee prosthesis, initial encounter (04/07/24) Infection and inflammatory reaction due to internal left knee prosthesis, initial encounter (04/07/24) Pain due to internal orthopedic prosthetic devices, implants and grafts, initial encounter (04/07/24) Personal history of other diseases of the circulatory system (04/07/24) Presence of coronary angioplasty implant and graft (04/07/24) Presence of right artificial knee joint (04/07/24) Presence of left artificial knee joint (04/07/24) Objective Data Objective Data Vital Signs: Vital Signs Temp Pulse Resp BP Pulse Ox O2 Del Method 98.6 F 65 16 118/61 96 Room Air 04/10/24 03:12 04/10/24 03:12 04/10/24 03:12 04/10/24 03:12 04/10/24 03:12 04/10/24 03:12 Oxygen Delivery Method Room Air Weight: 111 lb 1.808 oz Body Mass Index (BMI) 19.6 Intake & Output: Intake and Output for Last 24 Hours 04/08/24 04/09/24 04/10/24 23:59 23:59 23:59 Intake Total 850 / 850 1750 / 1750 350 / 350 Output Total 800 / 1700 2250 / 2250 700 / 700 Balance 50 / -850 -500 / -500 -350 / -350 Lab / Micro Data 04/10/24 04:15 04/10/24 04:15 Labs: Laboratory Results - last 24 hr 04/06/24 17:00: Fluid Crystals See PATH REV 04/06/24 17:00: Fluid Crystals See PATH REV, Fluid Crystal Source SYNOVIAL 04/06/24 17:00: Fluid Crystal Source SYNOVIAL, Fl Crystal Path Review Reviewed 04/06/24 17:00: Fl Crystal Path Review Reviewed, Synovial Source RIGHT KNEE 04/06/24 17:00: Synovial Source LEFT KNEE, Synovial Color Yellow 04/06/24 17:00: Synovial Color Yellow, Synovial Appearance Cloudy 04/06/24 17:00: Synovial Appearance Cloudy, Synovial WBC 64.4500 H 04/06/24 17:00: Synovial WBC 65.2300 H, Synovial RBC 25 H 04/06/24 17:00: Synovial RBC 0.004 H, Synovial Tot Cell Ct 64.7700 H 04/06/24 17:00: Synovial Tot Cell Ct 65.4300 H, Synov Polynuclear WBCs 63.894 04/06/24 17:00: Synov Polynuclear WBCs 63.805, Synov Mononuclear WBCs 3.287 04/06/24 17:00: Synov Mononuclear WBCs 2.649, Synovial Neutrophils 94 H 04/06/24 17:00: Synovial Neutrophils 96 H, Synovial Monocytes 6 04/06/24 17:00: Synovial Monocytes 4, Synovial Polynuclear % 95.1 04/06/24 17:00: Synovial Polynuclear % 96.0, Synovial Mononuclear % 4.9 04/06/24 17:00: Synovial Mononuclear % 4.0, Synovial Path Comment May follow 04/06/24 17:00: Synovial Path Comment May follow 04/09/24 09:50: Vancomycin Trough 6.4 04/09/24 11:36: POC Glucose 153 H 04/09/24 21:11: Hgb 8.8 L, Hct 28.0 L 04/09/24 21:58: POC Glucose 128 H 04/10/24 04:15: WBC 5.9, RBC 2.68 L, Hgb 8.4 L, Hct 26.8 L, MCV 100.0 H, MCH 31.3, MCHC 31.3 L, RDW Std Deviation 51.5 H, RDW Coeff of Jaleel 14.2, Plt Count 462 H, MPV 9.3, Immature Gran % (Auto) 0.300, Neut % (Auto) 66.7, Lymph % (Auto) 21.1, [place] % (Auto) 10.0, Eos % (Auto) 1.4, Baso % (Auto) 0.5, Absolute Neuts (auto) 3.9, Absolute Lymphs (auto) 1.24, Nucleated RBC % 0, Sodium 131 L, Potassium 4.1, Chloride 99, Carbon Dioxide 28.0, Anion Gap 4 L, BUN 8, Creatinine 0.53 L, Estim Creat Clear Calc 44.63, Est GFR (MDRD) Af Amer 143, Est GFR (MDRD) Non-Af 118, BUN/Creatinine Ratio 15.2, Glucose 118 H, Calcium 8.2 L Micro: Microbiology 04/08/24 Unknown Tissue - Knee Gram Stain - Final 04/08/24 Unknown Tissue - Knee Wound Culture - Preliminary Gram negative lorie 04/08/24 Unknown Tissue - Knee Gram Stain - Final 04/08/24 Unknown Tissue - Knee Wound Culture - Preliminary Gram negative lorie 04/08/24 Unknown Tissue - Knee Gram Stain - Final 04/08/24 Unknown Tissue - Knee Wound Culture - Preliminary Gram negative lorie 04/06/24 17:00 Fluid - Synovial (joint) Gram Stain - Final 04/06/24 17:00 Fluid - Synovial (joint) Body Fluid Culture - Preliminary Staphylococcus species 04/06/24 17:00 Fluid - Synovial (joint) Anaerobic Culture - Preliminary No growth in 48 hours. 04/06/24 17:00 Fluid - Synovial (joint) Gram Stain - Final 04/06/24 17:00 Fluid - Synovial (joint) Body Fluid Culture - Preliminary Staphylococcus species 04/06/24 17:00 Fluid - Synovial (joint) Anaerobic Culture - Preliminary No growth in 48 hours. 04/07/24 08:13 Blood Culture (Wb) - Right Hand Blood Culture - Preliminary No growth in 48 hours. 04/07/24 13:00 Tissue - Knee Gram Stain - Final 04/07/24 13:00 Tissue - Knee Wound Culture - Preliminary GNR lactose classification case manager 04/07/24 13:00 Tissue - Knee Anaerobic Culture - Preliminary No growth in 48 hours. 04/07/24 13:00 Tissue - Knee Gram Stain - Final 04/07/24 13:00 Tissue - Knee Wound Culture - Final Serratia marcescens 04/07/24 13:00 Tissue - Knee Anaerobic Culture - Preliminary Checking for anaerobes, further studies to follow. 04/07/24 13:00 Tissue - Knee Gram Stain - Final 04/07/24 13:00 Tissue - Knee Wound Culture - Preliminary Serratia marcescens GNR Poss Pseudomonas sp 04/07/24 13:00 Tissue - Knee Anaerobic Culture - Preliminary Checking for anaerobes, further studies to follow. 04/07/24 08:05 Nasal Secretion MRSA (PCR) - Final Physical Exam Narrative Seen and examined. No chest pain or shortness of breath. Patient has bilateral knee pain, left more than right knee. Patient refusing for stool softener for last 5 days. Hemoglobin dropped. Had right knee irrigation and complete synovectomy on 04/07 and left knee irrigation and complete synovectomy on 04/08. No fever or chills Physical exam General: Alert, Oriented x3, Cooperative HEENT: Atraumatic, PERRLA, EOMI, Normocephalic Oral: No Gingival or Mucosal Lesions/ Ulcerations Neck: Supple, No JVD, Negative Carotid Bruits Chest wall/Lungs: Air entry equal in bilateral lung bases. No crepitation/rhonchi Cardiovascular: Regular rate, Regular Rhythm, Normal S1, Normal S2, No M/G/R Abdomen: Bowel Sounds Present, Soft, Non Tender, Non-Distended : No dysuria. No renal angle tenderness. No suprapubic tenderness. Extremities: No edema, Capillary Refill Less than 3 Seconds Skin: No rashes, No breakdown Musculoskeletal: Right knee status postsurgery with Xavi wrap bandage and ice pack. Left knee with Xavi wrap bandage and tender. No significant swelling. Neurological: Cranial nerves II-XII grossly intact, DTR 2+/4. No acute focal neurological deficit. Psych/Mental Status: Normal Affect, Appropriate. Assessment & Plan Assessment/Plan (1) Inability to ambulate due to knee: PLAN: Plan #Debility due to acute on chronic bilateral knee pain Patient was recently admitted and admitted discharged on 04/02/2024 when she complained of similar bilateral knee pain and at that time also had UTI with E. coli being cultured She refused SNF placement and was discharged home. She comes in today because of worsening bilateral knee pain. Admit to [facility] with telemetry. Consult PT OT. Fall precautions. P.o. Tylenol, patient already on methadone. Will continue this. X-rays done just on 03/30/2024 showed no fracture or dislocation is stable postsurgical changes from left knee arthroplasty as well as small joint effusion and soft tissue swelling. consult orthopedic surgery per patient request. X-rays ordered of the knees. 04/07: Patient had right and left knee arthrocentesis by Dr. Sykes yesterday. Results reviewed. Gram stain and culture pending but shows mainly highly leukocytosis, more than 65,000 with 96% neutrophils, 4% monocytes. Patient does not have fever or tachycardia but BP on lower side 93/51, 105/59 therefore decided to start on IV antibiotics empirically. IV vancomycin and ceftriaxone started. Patient had bilateral knees replaced. Clinically PJI. Twelve-lead EKG individually reviewed. Normal sinus rhythm 62 bpm. Old infarct. QTc 442 ms. Patient was also seen by senior manager mmcoe and discussed with Dr. Ayala. Patient had 2 g IV preop. Started on vancomycin and IV ceftriaxone. ID consult for tomorrow AM 04/08: Patient had right knee irrigation, debridement complete synovectomy and 1 component revision on 04/07 and similar surgery for left knee today. Patient was seen by ID and advised to continue empiric vancomycin and ceftriaxone. She also has history of frequent UTI. 04/09: Left knee irrigation and synovectomy on 04/08. Joint fluid and surgical culture growing GNR, Serratia with possible Pseudomonas. IV antibiotic changed to Zosyn. PICC line ordered. ID follow-up reviewed. 04/10: Patient did not had bowel movement since Monday. She stated it is normal for her to have 1 BM per week. Advised that she is on high-dose of opioids and might get ileus or obstruction. Patient on senna S and MiraLAX twice daily. Dulcolax 10 mg ordered. 04/11: Acute blood loss anemia due to procedure and antiplatelet/anticoagulant agents: The patient had hemoglobin drop from 11.7-8.4 after 2 knee surgeries. Patient also on aspirin, Plavix and Xarelto for recent cardiac stents and Xarelto for DVT prophylaxis. Patient had 2 doses of Xarelto. For now we will discontinue we will consider resuming after H&H is stabilized #Leukocytosis: WBCs 27.1. Due to PJI Improvement in leukocytosis. 8//leukocytosis resolved #Hypertension: On amlodipine benazepril and carvedilol. IV hydralazine as needed. #CAD s/p stents: On aspirin and carvedilol as well as Plavix and high intensity statin. Patient had PCI by Dr. Reid on January 2024. History of Takotsubo cardiomyopathy with improvement of LV function to normal. Once hemostasis resumed, antiplatelet resume, low-dose aspirin and Brilinta 90 mg twice daily. #Type 2 diabetes mellitus: On metformin. Insulin sliding scale. Tactics ACHS. #History of rheumatoid arthritis: On methotrexate DVT prophylaxis: lovenox Code status:DNRCCA no intubation Patient counseled extensively about different types of CODE STATUS including full code, DNR CCA and DNR CCA. Patient elects to be DNRCCA no intubation. Charges/Coding Visit Charges Inpatient E&M: 81152 Subs Hosp L2
[2024-04-10 07:20] LABS: Bedside Glucose 180 mg/dL (74-106)
[2024-04-10] MEDS: Lisinopril 20 MG Tablet PO (07:55)
[2024-04-10] MEDS: Lactobacillis Acidophilus 1 CAP PO ×2 (07:55→22:16)
[2024-04-10] MEDS: Pantoprazole Sodium 20 MG Tablet PO ×2 (07:55→22:15)
[2024-04-10] MEDS: Aspirin E.C. 81 MG Tablet PO (07:55)
[2024-04-10] MEDS: Clopidogrel Bisulfate 75 MG Tablet PO (07:55)
[2024-04-10] MEDS: amLODIPine 10 MG Tablet PO (07:55)
[2024-04-10] MEDS: DULoxetine Hcl 60 MG Capsule PO (07:56)
[2024-04-10] MEDS: Folic Acid 1 MG Tablet 2 MG PO (07:56)
[2024-04-10] MEDS: Carvedilol 3.125 MG TABLET PO ×2 (07:56→22:13)
[2024-04-10] MEDS: metFORMIN (XR) 500 MG Tablet PO ×2 (07:56→16:38)
[2024-04-10] MEDS: Menthol/Lanolin/Calamine/Znox 113 GM Tube 1 APPLIC TOPICAL ×2 (07:57→22:14)
[2024-04-10] MEDS: Spironolactone 25 MG Tablet PO (07:57)
[2024-04-10] MEDS: Potassium Chloride Oral Tablet 20 MEQ PO (07:59)
[2024-04-10] MEDS: Methadone 10 MG Tablet PO ×2 (08:13→22:13)
[2024-04-10 09:00] VITALS: BP 126/63; PULSE 65; RESP 18; TEMP 36.9; O2SAT 97
[2024-04-10] MEDS: Senna/Docusate Sodium 1 Tablet 2 TABLET PO ×2 (09:45→22:16)
[2024-04-10] MEDS: Polyethylene Glycol 3350 17 GM PACKET PO ×2 (09:46→22:15)
--- NOTE | 2024-04-10 10:08 | PN.ORTHO_ITS ---
Subjective Subjective The patient was sitting in bed upon examination. Patient denies any chest pain, shortness of breath, dizziness, lightheadedness, nausea or vomiting, or calf pain. Patient's pain is doing better today. She refused to work with physical therapy yesterday. Plan is for therapy to work with her today. She is weightbearing as tolerated. Infectious disease has been involved and PICC line will be established. Objective Data Objective Data Vital Signs: Vital Signs Temp Pulse Resp BP Pulse Ox O2 Del Method 98.4 F 65 18 126/63 H 97 Room Air 04/10/24 09:00 04/10/24 09:00 04/10/24 09:00 04/10/24 09:00 04/10/24 09:00 04/10/24 09:00 Oxygen Delivery Method Room Air Weight: 50.4 kg Body Mass Index (BMI) 19.6 Intake & Output: Intake and Output for Last 24 Hours 04/08/24 04/09/24 04/10/24 23:59 23:59 23:59 Intake Total 850 / 850 1750 / 1750 350 / 350 Output Total 800 / 1700 2250 / 2250 700 / 700 Balance 50 / -850 -500 / -500 -350 / -350 Lab / Micro Data 04/10/24 04:15 04/10/24 04:15 Labs: Laboratory Results - last 24 hr 04/09/24 09:50: Vancomycin Trough 6.4 04/09/24 11:36: POC Glucose 153 H 04/09/24 21:11: Hgb 8.8 L, Hct 28.0 L 04/09/24 21:58: POC Glucose 128 H 04/10/24 04:15: WBC 5.9, RBC 2.68 L, Hgb 8.4 L, Hct 26.8 L, MCV 100.0 H, MCH 31.3, MCHC 31.3 L, RDW Std Deviation 51.5 H, RDW Coeff of Jaleel 14.2, Plt Count 462 H, MPV 9.3, Immature Gran % (Auto) 0.300, Neut % (Auto) 66.7, Lymph % (Auto) 21.1, [place] % (Auto) 10.0, Eos % (Auto) 1.4, Baso % (Auto) 0.5, Absolute Neuts (auto) 3.9, Absolute Lymphs (auto) 1.24, Nucleated RBC % 0, Sodium 131 L, Potassium 4.1, Chloride 99, Carbon Dioxide 28.0, Anion Gap 4 L, BUN 8, C reatinine 0.53 L, Estim Creat Clear Calc 44.63, Est GFR (MDRD) Af Amer 143, Est GFR (MDRD) Non-Af 118, BUN/Creatinine Ratio 15.2, Glucose 118 H, Calcium 8.2 L 04/10/24 06:31: POC Glucose 180 H Micro: Microbiology 04/08/24 Unknown Tissue - Knee Gram Stain - Final 04/08/24 Unknown Tissue - Knee Wound Culture - Preliminary GNR lactose family therapist Gram negative lorie 04/08/24 Unknown Tissue - Knee Gram Stain - Final 04/08/24 Unknown Tissue - Knee Wound Culture - Preliminary GNR lactose family therapist Gram negative lorie 04/08/24 Unknown Tissue - Knee Gram Stain - Final 04/08/24 Unknown Tissue - Knee Wound Culture - Final Klebsiella oxytoca 04/07/24 13:00 Tissue - Knee Gram Stain - Final 04/07/24 13:00 Tissue - Knee Wound Culture - Final Enterobacter cloacae complex 04/07/24 13:00 Tissue - Knee Anaerobic Culture - Preliminary No growth in 48 hours. 04/06/24 17:00 Fluid - Synovial (joint) Gram Stain - Final 04/06/24 17:00 Fluid - Synovial (joint) Body Fluid Culture - Final Staphylococcus epidermidis 04/06/24 17:00 Fluid - Synovial (joint) Anaerobic Culture - Preliminary No growth in 48 hours. 04/06/24 17:00 Fluid - Synovial (joint) Gram Stain - Final 04/06/24 17:00 Fluid - Synovial (joint) Body Fluid Culture - Final Staphylococcus epidermidis 04/06/24 17:00 Fluid - Synovial (joint) Anaerobic Culture - Preliminary No growth in 48 hours. 04/07/24 13:00 Tissue - Knee Gram Stain - Final 04/07/24 13:00 Tissue - Knee Wound Culture - Final Serratia marcescens Pseudomonas aeruginosa 04/07/24 13:00 Tissue - Knee Anaerobic Culture - Preliminary Checking for anaerobes, further studies to follow. 04/07/24 08:13 Blood Culture (Wb) - Right Hand Blood Culture - Preliminary No growth in 48 hours. 04/07/24 13:00 Tissue - Knee Gram Stain - Final 04/07/24 13:00 Tissue - Knee Wound Culture - Final Serratia marcescens 04/07/24 13:00 Tissue - Knee Anaerobic Culture - Preliminary Checking for anaerobes, further studies to follow. 04/07/24 08:05 Nasal Secretion MRSA (PCR) - Final Physical Exam Narrative Vital signs stable and afebrile. SCDs and PETTY hose are in place bilaterally Patient is able to plantarflex and dorsiflex actively. Sensation is intact to light touch to saphenous, sural, superficial and deep peroneal, and tibial distribution. Bilateral dressings are clean dry and intact. Negative Homans bilaterally, negative signs and symptoms of DVT. Const alert, oriented x3 and no apparent distress Constitutional Narrative: Cachectic General Appearance: cooperative HEENT normocephalic Eyes PERRL Neck no JVD General: trachea midline Resp normal respiratory effort Cardio regular rate GI non-distended Extremity Extremity Narrative: Right lower extremity: Incision is clean dry and intact, moderate effusion. Active flexion to 30 degrees. Pain past passive flexion of 30 degrees or more. Stable to varus and valgus stress. Tenderness palpation of the medial knee. No erythema. Left lower extremity: Incision is clean dry intact. Large effusion. Pain with passive flexion beyond 20 degrees. Active flexion to 20 degrees. Stable to varus and valgus stress. Tenderness palpation over medial lateral knee. No erythema. Skin Wound Narrative: Previous incisions are clean dry and intact Neuro CN's II-XII intact bilaterally Psych affect normal Assessment & Plan Assessment/Plan (1) Infection of total left knee replacement: PLAN: 1. S/P irrigation debridement with complete synovectomy and 1 component revision left knee replacement POD #2, irrigation debridement with complete synovectomy and 1 component revision right total knee replacement POD #3 2. Continue Pain Medications: Deferred to medicine. She is currently on Tylenol and methadone. She is on chronic pain medications for chronic back pain 3. DVT Prophylaxis: Defer to medicine but would recommend Xarelto or equivalent direct oral anticoagulation medication for at least 2 weeks postoperatively followed by 2-week regimen of aspirin 81 mg twice daily for DVT prophylaxis. Okay to begin anticoagulation today. 4. PT/OT: Weightbearing as tolerated with walker 5. H & H: 8.4/26.8, asymptomatic. Upon review of previous labs it does appear patient has acute on chronic anemia. I would defer any further treatment to medicine. Clinically patient denies any dizziness or lightheadedness. Vitals appear stable. 6. Continue recommendations from infectious disease: Currently recommending Zosyn from infectious disease and PICC line was placed. Appreciate recommendations for appropriate discharge planning from infectious disease. Patient will require follow-up with infectious disease for continued management. Upon review of microbiology on the right knee patient had positive on 3 of 3 cultures for Klebsiella oxytoca, gram-negative lorie with possible Pseudomonas, gram-negative lorie lactose family therapist and Serratia marcescens. With regards to microbiology on the left knee cultures are positive for serratia marcescens, enterobacter cloacae complex, pseudomonas aeruginosa currently on 3 of 3 cultures. 7. Encouraged Incentive Spirometry 8. Patient is aware of postoperative constipation that can occur from 1-3 days postoperatively. Will continue with senna 2 tablets twice daily until first bowel movement. Patient was advised if not having a bowel movement after day 3 she is to contact orthopedics so appropriate change can be made. Patient voiced understanding. 9. Continue postoperative medical treatment per medicine 10. Disposition: From orthopedic standpoint patient is stable. She does state the pain is improved today. She is on chronic pain medications. At this time okay for discharge planning from orthopedic standpoint when medically stable. Patient will need discharge planning set up for IV antibiotics for 6 weeks postoperatively. Patient will require 2-week follow-up with orthopedics for x- rays and suture removal. Patient is weightbearing as tolerated with walker. Progress range of motion as tolerated. Dressings should remain on for 7 days postoperatively. Okay to shower with dressings in place. Once the dressings have been removed okay to shower but only use gentle soap and water over the incision. Patient was instructed to contact orthopedics upon discharge with any concerns for her knees. I have reviewed the [place] Automated Rx Reporting System (OARRS) report for this patient for refill pattern and other prescriber involvement as part of the appropriate surveillance for the provision of acute and chronic controlled medications. The report was requested and reviewed on the date of this entry and was considered in the prescribing process. This dictation was created using voice recognition software. Phonetic and/or grammatical errors may exist. (2) Infection of total right knee replacement: QUALIFIERS: Encounter type: initial encounter Qualified Code(s): T84.53XA - Infection and inflammatory reaction due to internal right knee prosthesis, initial encounter (3) Pain due to total left knee replacement: (4) Pain due to total right knee replacement:
[2024-04-10] MEDS: Sodium Ferric Gluconat/Sucrose 250 MG in 0.9% Normal Saline (250mL Bag) 250 ML 135 MG IV (12:16)
[2024-04-10] MEDS: Bisacodyl 5 MG Tablet 10 MG PO (12:26)
[2024-04-10 12:29] LABS: Bedside Glucose 126 mg/dL (74-106)
--- NOTE | 2024-04-10 14:17 | CASEMGMT ---
Discharge Planning Referral sent to I via [facility]. Jumana Carl DC Planning Asst.
--- NOTE | 2024-04-10 14:30 | CASEMGMT ---
Dr. Drew gives this RN CM Rx for IV ATB. This RN CM to pt room at this time. Pt has a PICC. This RN CM educated the pt on the process of IV ATB's at home. Pt states that she does still want to DC home. Pt states that her SO (Rj) will be the teachable CG. Pt denies wanting to view a list of local in-network HHC companies and states that she would like to go through [facility]. Referral made to [facility] for SN, PT, and OT. Awaiting return response. Pt was also given a list of local in-network Home [facility]fusion companies for review. Pt states that she prefers [facility]. Referral sent via [facility] by the DC field administrative assistant. Rx for IV ATB placed in pt chart. DC date is TBD at this time. [facility].
[2024-04-10 14:48] VITALS: BP 100/66; PULSE 61; RESP 18; TEMP 36.4; O2SAT 97
--- NOTE | 2024-04-10 15:27 | PCM.PN.ID ---
Physical Exam Narrative Feeling better, pain controlled, no fever, no n/v/d. Const alert and no apparent distress General Appearance: cooperative Resp normal air movement and clear to auscultation bilaterally Cardio regular rate and regular rhythm GI soft to palpation, non-tender and non-distended Skin no rashes or lesions noted ID ID: Route of nutrition/ use of supplements: [] Nutritional Intake: [] IV Site: [] Wong Catheter: [] Assessment & Plan Assessment/Plan (1) Infection of total right knee replacement: QUALIFIERS: Encounter type: initial encounter Qualified Code(s): T84.53XA - Infection and inflammatory reaction due to internal right knee prosthesis, initial encounter PLAN: OR 04/07/24 for R knee PJI. OR 04/08/24 for L knee. Fluid and surg cx with enterobacter, serratia, klebs, and pseudomonas. Will change abx to cefepime. Plan on 6 weeks iv abx with stop date 05/20/24 with weekly labs, ID followup in 2 weeks. Will follow (2) Infection of total left knee replacement:
[2024-04-10 17:18] LABS: Bedside Glucose 175 mg/dL (74-106)
[2024-04-10 19:54] VITALS: PULSE 70
[2024-04-10 20:01] VITALS: BP 114/66; PULSE 64; RESP 18; TEMP 36.8; O2SAT 95
[2024-04-10] MEDS: MELATONIN 10 MG TABLET PO (22:12)
[2024-04-10] MEDS: Cefepime HCl 2 GM in 0.9% Normal Saline (100mL MB+) 100 ML IV (22:14)
[2024-04-10 22:45] LABS: Bedside Glucose 116 mg/dL (74-106)
[2024-04-11 03:28] VITALS: BP 118/60; PULSE 57; RESP 18; TEMP 36.6; O2SAT 96
[2024-04-11] MEDS: Gabapentin 800 MG Tablet PO ×3 (06:09→21:15)
[2024-04-11] MEDS: Acetaminophen 500 MG Tablet 1000 MG PO ×3 (06:09→21:15)
[2024-04-11 07:23] LABS: Absolute Lymphocyte Count 0.73 X10^3/uL (0.83-4.51); Absolute Neutrophil Count 4.4 X10^3/uL (2.0-7.7); Basophil# 0.02 X10^3/uL; Basophil% 0.4 % (0-1); Bedside Glucose 94 mg/dL (74-106); Eosinophil# 0.02 X10^3/uL; Eosinophils% 0.4 % (0-5); Hematocrit 26.5 % (37-47); Hemoglobin 8.4 g/dL (12.0-15.0); Lymphocyte # 0.73 X10^3/ul (0.83-4.51); Lymphocyte % 12.8 % (19-41); Mean Corp Hgb Conc 31.7 g/dL (32-36); Mean Corpuscular Hgb 31.7 pg (27.0-32.0); Mean Platelet Vol. 9.3 fl (6.2-12.0); Monocyte# 0.51 X10^3/uL; Monocyte% 8.9 % (0-10); NRBC Flagged by Analyzer 0 % (0-5); Platelet Count 461 K/mm3 (150-450); RBC Distribution Width CV 14.3 % (11.6-14.6); RBC Distribution Width SD 51.4 fl (35.1-43.9); Red Blood Count 2.65 M/mm3 (4.2-5.4); White Blood Count 5.7 K/mm3 (4.4-11.0)
[2024-04-11 07:59] LABS: Anion Gap 4 (5-15); BUN 7 mg/dL (7-18); BUN/Creat Ratio 16.6 RATIO (10-20); Calcium,Total 8.2 mg/dL (8.5-10.1); Chloride 106 mmol/L (98-107); Creatinine, Serum 0.42 mg/dL (0.55-1.02); EST Glomerular Filtration Rate 153 mL/min (>60); Est Glom Filt Rate - Afr Amer 185 mL/min (>60); Estimated Creatinine Clearance 44.63 ml/min; Glucose 91 mg/dL (74-106); Potassium 4.2 mmol/L (3.5-5.1); Sodium Level 136 mmol/L (136-145)
[2024-04-11] MEDS: Folic Acid 1 MG Tablet 2 MG PO (09:12)
[2024-04-11] MEDS: metFORMIN (XR) 500 MG Tablet PO ×2 (09:12→16:15)
[2024-04-11] MEDS: Potassium Chloride Oral Tablet 20 MEQ PO (09:12)
[2024-04-11] MEDS: Aspirin E.C. 81 MG Tablet PO (09:12)
[2024-04-11] MEDS: Spironolactone 25 MG Tablet PO (09:13)
[2024-04-11] MEDS: DULoxetine Hcl 60 MG Capsule PO (09:13)
[2024-04-11] MEDS: Menthol/Lanolin/Calamine/Znox 113 GM Tube 1 APPLIC TOPICAL ×2 (09:13→21:14)
[2024-04-11] MEDS: Lactobacillis Acidophilus 1 CAP PO ×2 (09:13→21:16)
[2024-04-11] MEDS: amLODIPine 10 MG Tablet PO (09:14)
[2024-04-11] MEDS: Senna/Docusate Sodium 1 Tablet 2 TABLET PO ×2 (09:14→21:17)
[2024-04-11] MEDS: Polyethylene Glycol 3350 17 GM PACKET PO (09:14)
[2024-04-11] MEDS: Pantoprazole Sodium 20 MG Tablet PO ×2 (09:14→21:15)
[2024-04-11] MEDS: Carvedilol 3.125 MG TABLET PO ×2 (09:14→21:15)
[2024-04-11] MEDS: Clopidogrel Bisulfate 75 MG Tablet PO (09:14)
[2024-04-11] MEDS: Methadone 10 MG Tablet PO ×2 (09:15→21:27)
[2024-04-11] MEDS: Lisinopril 20 MG Tablet PO (09:15)
[2024-04-11] MEDS: Cefepime HCl 2 GM in 0.9% Normal Saline (100mL MB+) 100 ML IV ×2 (09:15→21:15)
[2024-04-11 09:25] VITALS: BP 110/66; PULSE 77; RESP 18; TEMP 36.8; O2SAT 98
[2024-04-11] MEDS: Bisacodyl 5 MG Tablet 10 MG PO (10:48)
--- NOTE | 2024-04-11 10:48 | CASEMGMT ---
Addendum entered by Irma Kaur 04/11/24 15:47: Social Work Pt has been accepted at [facility]. Physician updated and pt likely ready for dc tomorrow. SW met with pt and informed and pt is agreeable to dc plan. [facility] notified. Plan: [facility], when medically ready HAKAN Lamb Addendum entered by Irma Kaur 04/11/24 13:20: Social Work TCU is unable to accept pt. SW met with pt and updated on this. A list of SNF providers including quality and resource use data and consistent with the patient?s preferred geographic region, medical needs, and insurance network were provided from the [employer] Guide. Pt and significant other reviewed the list and preferred provider is [facility]. DC certified surgical first assistant updated and to send referral to [facility]. Plan: [facility], pending acceptance HAKAN Lamb Original Note: Social Work SW met with pt and introduced self and role of SW. SW spoke with pt regarding discharge plan and explained concern for pt returning home as pt required Max A x2 with therapy and will need IV ATB. Pt lives at home alone and significant other lives next door. Pt asking SW if she can stay at the hospital in the TCU as she has been here before. SW explained Medicare benefit for SNF and that referral will be made to TCU. Pt agreeable. Referral made to TCU. SW will await determination. Plan: TCU , pending acceptance HAKAN Lamb
[2024-04-11 11:59] LABS: Bedside Glucose 122 mg/dL (74-106)
--- NOTE | 2024-04-11 13:00 | PN.HOSP_ITS ---
Reason for Visit Reason for Visit: Diagnoses Atherosclerotic heart disease of [place] coronary artery without angina pectoris (04/07/24) Takotsubo syndrome (04/07/24) Difficulty in walking, not elsewhere classified (04/07/24) Infection and inflammatory reaction due to internal right knee prosthesis, initial encounter (04/07/24) Infection and inflammatory reaction due to internal left knee prosthesis, initial encounter (04/07/24) Pain due to internal orthopedic prosthetic devices, implants and grafts, initial encounter (04/07/24) Personal history of other diseases of the circulatory system (04/07/24) Presence of coronary angioplasty implant and graft (04/07/24) Presence of right artificial knee joint (04/07/24) Presence of left artificial knee joint (04/07/24) Objective Data Objective Data Vital Signs: Vital Signs Temp Pulse Resp BP Pulse Ox O2 Del Method 98.2 F 77 18 110/66 98 Room Air 04/11/24 09:25 04/11/24 09:25 04/11/24 09:25 04/11/24 09:25 04/11/24 09:25 04/11/24 09:30 Oxygen Delivery Method Room Air Weight: 111 lb 1.808 oz Body Mass Index (BMI) 19.6 Intake & Output: Intake and Output for Last 24 Hours 04/09/24 04/10/24 04/11/24 23:59 23:59 23:59 Intake Total 1750 / 1750 1070 / 1070 540 / 540 Output Total 2250 / 2250 2550 / 2550 500 / 500 Balance -500 / -500 -1480 / -1480 40 / 40 Lab / Micro Data 04/11/24 06:11 04/11/24 06:11 Labs: Laboratory Results - last 24 hr 04/10/24 16:36: POC Glucose 175 H 04/10/24 22:12: POC Glucose 116 H 04/11/24 06:11: WBC 5.7, RBC 2.65 L, Hgb 8.4 L, Hct 26.5 L, MCV 100.0 H, MCH 31.7, MCHC 31.7 L, RDW Std Deviation 51.4 H, RDW Coeff of Jaleel 14.3, Plt Count 461 H, MPV 9.3, Immature Gran % (Auto) 0.500, Neut % (Auto) 77.0 H, Lymph % (Auto) 12.8 L, [place] % (Auto) 8.9, Eos % (Auto) 0.4, Baso % (Auto) 0.4, Absolute Neuts (auto) 4.4, Absolute Lymphs (auto) 0.73 L, Nucleated RBC % 0, Sodium 136, Potassium 4.2, Chloride 106, Carbon Dioxide 26.0, Anion Gap 4 L, BUN 7, C reatinine 0.42 L, Estim Creat Clear Calc 44.63, Est GFR (MDRD) Af Amer 185, Est GFR (MDRD) Non-Af 153, BUN/Creatinine Ratio 16.6, Glucose 91, Calcium 8.2 L, POC Glucose 94 04/11/24 11:41: POC Glucose 122 H Micro: Microbiology 04/08/24 Unknown Tissue - Knee Gram Stain - Final 04/08/24 Unknown Tissue - Knee Wound Culture - Preliminary ESBL Klebsiella pneumoniae pne Serratia marcescens 04/08/24 Unknown Tissue - Knee Gram Stain - Final 04/08/24 Unknown Tissue - Knee Wound Culture - Preliminary Klebsiella pneumoniae sp pneum Serratia marcescens 04/08/24 Unknown Tissue - Knee Gram Stain - Final 04/08/24 Unknown Tissue - Knee Wound Culture - Final Klebsiella oxytoca 04/07/24 13:00 Tissue - Knee Gram Stain - Final 04/07/24 13:00 Tissue - Knee Wound Culture - Final Enterobacter cloacae complex 04/07/24 13:00 Tissue - Knee Anaerobic Culture - Preliminary No growth in 48 hours. 04/06/24 17:00 Fluid - Synovial (joint) Gram Stain - Final 04/06/24 17:00 Fluid - Synovial (joint) Body Fluid Culture - Final Staphylococcus epidermidis 04/06/24 17:00 Fluid - Synovial (joint) Anaerobic Culture - Preliminary No growth in 48 hours. 04/06/24 17:00 Fluid - Synovial (joint) Gram Stain - Final 04/06/24 17:00 Fluid - Synovial (joint) Body Fluid Culture - Final Staphylococcus epidermidis 04/06/24 17:00 Fluid - Synovial (joint) Anaerobic Culture - Preliminary No growth in 48 hours. 04/07/24 13:00 Tissue - Knee Gram Stain - Final 04/07/24 13:00 Tissue - Knee Wound Culture - Final Serratia marcescens Pseudomonas aeruginosa 04/07/24 13:00 Tissue - Knee Anaerobic Culture - Preliminary Checking for anaerobes, further studies to follow. 04/07/24 08:13 Blood Culture (Wb) - Right Hand Blood Culture - Preliminary No growth in 48 hours. 04/07/24 13:00 Tissue - Knee Gram Stain - Final 04/07/24 13:00 Tissue - Knee Wound Culture - Final Serratia marcescens 04/07/24 13:00 Tissue - Knee Anaerobic Culture - Preliminary Checking for anaerobes, further studies to follow. 04/07/24 08:05 Nasal Secretion MRSA (PCR) - Final Physical Exam Narrative Seen and examined. No chest pain or shortness of breath. Patient knee pain is controlled. Earlier patient refused stool softener for 5 days but currently taking senna S and MiraLAX from yesterday. Dulcolax 10 mg ordered. Had right knee irrigation and complete synovectomy on 04/07 and left knee irrigation and complete synovectomy on 04/08. No fever or chills Physical exam General: Alert, Oriented x3, Cooperative HEENT: Atraumatic, PERRLA, EOMI, Normocephalic Oral: No Gingival or Mucosal Lesions/ Ulcerations Neck: Supple, No JVD, Negative Carotid Bruits Chest wall/Lungs: Air entry equal in bilateral lung bases. No crepitation/rhonchi Cardiovascular: Regular rate, Regular Rhythm, Normal S1, Normal S2, No M/G/R Abdomen: Bowel Sounds Present, Soft, Non Tender, Non-Distended : No dysuria. No renal angle tenderness. No suprapubic tenderness. Extremities: No edema, Capillary Refill Less than 3 Seconds Skin: No rashes, No breakdown Musculoskeletal: Right knee status postsurgery with Xavi wrap bandage and ice pack. Left knee with Xavi wrap bandage and tender. No significant swelling. Neurological: Cranial nerves II-XII grossly intact, DTR 2+/4. No acute focal neurological deficit. Psych/Mental Status: Normal Affect, Appropriate. Assessment & Plan Assessment/Plan (1) Inability to ambulate due to knee: PLAN: Plan #Debility due to acute on chronic bilateral knee pain * Patient was recently admitted and admitted discharged on 04/02/2024 when she complained of similar bilateral knee pain and at that time also had UTI with E. coli being cultured * She refused SNF placement and was discharged home. * She comes in today because of worsening bilateral knee pain. * Admit to [facility] with telemetry. Consult PT OT. Fall precautions. * P.o. Tylenol, patient already on methadone. Will continue this. * X-rays done just on 03/30/2024 showed no fracture or dislocation is stable postsurgical changes from left knee arthroplasty as well as small joint effusion and soft tissue swelling. * consult orthopedic surgery per patient request. * X-rays ordered of the knees. 04/07: Patient had right and left knee arthrocentesis by Dr. Sykes yesterday. Results reviewed. Gram stain and culture pending but shows mainly highly leukocytosis, more than 65,000 with 96% neutrophils, 4% monocytes. Patient does not have fever or tachycardia but BP on lower side 93/51, 105/59 therefore decided to start on IV antibiotics empirically. IV vancomycin and ceftriaxone started. Patient had bilateral knees replaced. Clinically PJI. Twelve-lead EKG individually reviewed. Normal sinus rhythm 62 bpm. Old infarct. QTc 442 ms. Patient was also seen by meat team member and discussed with Dr. Aylaa. Patient had 2 g IV preop. Started on vancomycin and IV ceftriaxone. ID consult for tomorrow AM 04/08: Patient had right knee irrigation, debridement complete synovectomy and 1 component revision on 04/07 and similar surgery for left knee today. Patient was seen by ID and advised to continue empiric vancomycin and ceftriaxone. She also has history of frequent UTI. 04/09: Left knee irrigation and synovectomy on 04/08. Joint fluid and surgical culture growing GNR, Serratia with possible Pseudomonas. IV antibiotic changed to Zosyn. PICC line ordered. ID follow-up reviewed. 04/10: Patient did not had bowel movement since Monday. She stated it is normal for her to have 1 BM per week. Advised that she is on high-dose of opioids and might get ileus or obstruction. Patient on senna S and MiraLAX twice daily. Dulcolax 10 mg ordered. 04/11: Continue PT and OT. Patient not had bowel movement. Dulcolax 10 mg oral 1 dose and suppository ordered 04/11: Acute blood loss anemia due to procedure and antiplatelet/anticoagulant agents: The patient had hemoglobin drop from 11.7-8.4 after 2 knee surgeries. Patient also on aspirin, Plavix and Xarelto for recent cardiac stents and Xarelto for DVT prophylaxis. Patient had 2 doses of Xarelto. For now we will discontinue we will consider resuming after H&H is stabilized Hemoglobin 8.4. Platelet count 461,000. Hold Xarelto today. Patient had last dose on 04/10/2020. May be resumed tomorrow AM if H&H remains stable. #Leukocytosis: WBCs 27.1. Due to PJI Improvement in leukocytosis. 8//leukocytosis resolved #Hypertension: On amlodipine benazepril and carvedilol. IV hydralazine as needed. 04/11: BP 99/51. Hold antihypertensive medication. #CAD s/p stents: On aspirin and carvedilol as well as Plavix and high intensity statin. Patient had PCI by Dr. Reid on January 2024. History of Takotsubo cardiomyopathy with improvement of LV function to normal. Once hemostasis resumed, antiplatelet resume, low-dose aspirin and Brilinta 90 mg twice daily. #Type 2 diabetes mellitus: On metformin. Insulin sliding scale. Tactics ACHS. 04/11: glucose is controlled. #History of rheumatoid arthritis: On methotrexate DVT prophylaxis: lovenox Code status:DNRCCA no intubation * Patient counseled extensively about different types of CODE STATUS including full code, DNR CCA and DNR CCA. Patient elects to be DNRCCA no intubation. Charges/Coding Visit Charges Inpatient E&M: 27306 Subs Hosp L2
[2024-04-11 14:07] VITALS: BP 99/51; PULSE 81; RESP 18; TEMP 37; O2SAT 98
--- NOTE | 2024-04-11 14:22 | CASEMGMT ---
Addendum entered by Jumana Carl 04/11/24 15:34: Patient has been accepted by [facility]. SW updated. Jumana Carl DC Planning Asst. Original Note: Discharge Planning Referral sent to [facility] via [facility]. Jumana Carl DC Planning Asst.
[2024-04-11] MEDS: Sodium Ferric Gluconat/Sucrose 250 MG in 0.9% Normal Saline (250mL Bag) 250 ML 135 MG IV (16:12)
[2024-04-11 16:57] LABS: Bedside Glucose 130 mg/dL (74-106)
[2024-04-11 19:53] VITALS: BP 105/58; PULSE 64; RESP 18; TEMP 36.9; O2SAT 95
[2024-04-11] MEDS: MELATONIN 10 MG TABLET PO (21:15)
[2024-04-11 22:53] LABS: Bedside Glucose 110 mg/dL (74-106)
[2024-04-12] MEDS: Ondansetron 4 MG/2 ML Vial IV (00:22)
[2024-04-12 02:30] VITALS: BP 117/63; PULSE 56; RESP 18; TEMP 36.6; O2SAT 98
--- NOTE | 2024-04-12 04:02 | PCM.HOSP.N ---
Hospitalist Note Ongoing evaluation per daytime hospitalist secondary to acute on chronic anemia w/ now reported Stool guiac positive. Will d/c xarelto. Recent PCI, will continue plavix.
[2024-04-12] MEDS: Gabapentin 800 MG Tablet PO (07:08)
[2024-04-12] MEDS: Acetaminophen 500 MG Tablet 1000 MG PO (07:08)
[2024-04-12 07:29] LABS: Bedside Glucose 86 mg/dL (74-106)
[2024-04-12] MEDS: Folic Acid 1 MG Tablet 2 MG PO (08:26)
[2024-04-12] MEDS: metFORMIN (XR) 500 MG Tablet PO (08:26)
[2024-04-12] MEDS: Potassium Chloride Oral Tablet 20 MEQ PO (08:26)
[2024-04-12 08:30] VITALS: BP 112/48; PULSE 61; RESP 16; TEMP 36.6; O2SAT 97
[2024-04-12] MEDS: Methadone 10 MG Tablet PO (08:35)
--- NOTE | 2024-04-12 09:59 | TREXTCAR_ITS ---
Diet Diet Order/Speech Therapy: 04/08/24 21:10 Diet: Regular - General Routine Orders/Code Status Suppository Type: Dulcolax 10mg Suppository Frequency: Daily PRN Wound(s) bilat knees: Wound Type: Surgical Incision RIGHT KNEE: Wound Type: Surgical Incision Below Left Knee: Wound Type: Surgical Incision left knee: Wound Type: Surgical Incision RT ELBOW: Wound Type: Abrasion Therapies Extremity Affected:: Bilateral Lower Physical Therapy: Eval and Treat Occupational Therapy: Eval and Treat Speech Therapy: Eval and Treat Problem/Diagnosis (1) Inability to ambulate due to knee: Status: Acute Code(s): R26.2 - Difficulty in walking, not elsewhere classified Plan #Debility due to acute on chronic bilateral knee pain * Patient was recently admitted and admitted discharged on 04/02/2024 when she complained of similar bilateral knee pain and at that time also had UTI with E. coli being cultured * She refused SNF placement and was discharged home. * She comes in today because of worsening bilateral knee pain. * Admit to [facility] with telemetry. Consult PT OT. Fall precautions. * P.o. Tylenol, patient already on methadone. Will continue this. * X-rays done just on 03/30/2024 showed no fracture or dislocation is stable postsurgical changes from left knee arthroplasty as well as small joint effusion and soft tissue swelling. * consult orthopedic surgery per patient request. * X-rays ordered of the knees. 04/07: Patient had right and left knee arthrocentesis by Dr. Sykes yesterday. Results reviewed. Gram stain and culture pending but shows mainly highly leukocytosis, more than 65,000 with 96% neutrophils, 4% monocytes. Patient does not have fever or tachycardia but BP on lower side 93/51, 105/59 therefore decided to start on IV antibiotics empirically. IV vancomycin and ceftriaxone started. Patient had bilateral knees replaced. Clinically PJI. Twelve-lead EKG individually reviewed. Normal sinus rhythm 62 bpm. Old infarct. QTc 442 ms. Patient was also seen by supervisor electronics inspection and discussed with Dr. Ayala. Patient had 2 g IV preop. Started on vancomycin and IV ceftriaxone. ID consult for tomorrow AM 04/08: Patient had right knee irrigation, debridement complete synovectomy and 1 component revision on 04/07 and similar surgery for left knee today. Patient was seen by ID and advised to continue empiric vancomycin and ceftriaxone. She also has history of frequent UTI. 04/09: Left knee irrigation and synovectomy on 04/08. Joint fluid and surgical culture growing GNR, Serratia with possible Pseudomonas. IV antibiotic changed to Zosyn. PICC line ordered. ID follow-up reviewed. 04/10: Patient did not had bowel movement since Monday. She stated it is normal for her to have 1 BM per week. Advised that she is on high-dose of opioids and might get ileus or obstruction. Patient on senna S and MiraLAX twice daily. Dulcolax 10 mg ordered. 04/11: Continue PT and OT. Patient not had bowel movement. Dulcolax 10 mg oral 1 dose and suppository ordered 04/11: Acute blood loss anemia due to procedure and antiplatelet/anticoagulant agents: The patient had hemoglobin drop from 11.7-8.4 after 2 knee surgeries. Patient also on aspirin, Plavix and Xarelto for recent cardiac stents and Xarelto for DVT prophylaxis. Patient had 2 doses of Xarelto. For now we will discontinue we will consider resuming after H&H is stabilized Hemoglobin 8.4. Platelet count 461,000. Hold Xarelto today. Patient had last dose on 04/10/2020. May be resumed tomorrow AM if H&H remains stable. #Leukocytosis: WBCs 27.1. Due to PJI Improvement in leukocytosis. 8/leukocytosis resolved #Hypertension: On amlodipine benazepril and carvedilol. IV hydralazine as needed. 04/11: BP 99/51. Hold antihypertensive medication. #CAD s/p stents: On aspirin and carvedilol as well as Plavix and high intensity statin. Patient had PCI by Dr. Reid on January 2024. History of Takotsubo cardiomyopathy with improvement of LV function to normal. Once hemostasis resumed, antiplatelet resume, low-dose aspirin and Brilinta 90 mg twice daily. #Type 2 diabetes mellitus: On metformin. Insulin sliding scale. Tactics ACHS. 04/11: glucose is controlled. #History of rheumatoid arthritis: On methotrexate DVT prophylaxis: lovenox Code status:DNRCCA no intubation * Patient counseled extensively about different types of CODE STATUS including full code, DNR CCA and DNR CCA. Patient elects to be DNRCCA no intubation. Allergies/Procedures Done in Hospital Allergies influenza A (H1N1) virus vaccine [id number]-split 2008 (From influenza A (H1N1)) Allergy (Verified 03/30/24 08:51) Hives rosuvastatin calcium (From Crestor) Allergy (Verified 03/30/24 08:51) Itching simvastatin Allergy (Verified 03/30/24 08:51) Other leg cramps sulfamethoxazole (From Bactrim) Adverse Reaction (Severe, Verified 03/30/24 08:51) Apthous mouth sores ticagrelor (From Brilinta) Adverse Reaction (Severe, Verified 03/30/24 08:51) Severe bruising, bleeding, mouth sores trimethoprim (From Bactrim) Adverse Reaction (Severe, Verified 03/30/24 08:51) Apthous mouth sores nitrofurantoin (From Macrobid) Adverse Reaction (Mild, Verified 03/30/24 08:51) Vomiting atorvastatin Adverse Reaction (Verified 03/30/24 08:51) nausea ezetimibe (From Zetia) Adverse Reaction (Verified 03/30/24 08:51) Nausea vomiting fenofibrate (From Tricor) Adverse Reaction (Verified 03/30/24 08:51) Other myalgias niacin Adverse Reaction (Verified 03/30/24 08:51) Other flushing Type of Care/Length of Stay Estimated LOS: Convalescent Care Less Than 30 days Type of Care Needed: Skilled Rehab Potential: Good Prognosis: Good Additional Orders/Day of Discharge Day of Discharge: 04/12/24 Dietary and Speech Recommendations Dietitian Recommendations/Changes: Continue Regular diet to optimize oral intakes. If glucose elevated, then change to CHO Controlled Continue Ensure Surgery TID with medpass to provide supplemental energy. Will discontinue Glucerna with medpass. Discharge Plan Admission Admit Date/Time: 04/07/24 14:57 Attending Provider: Everton Champagne Primary Care Provider: Margarita Drake Consulting Providers: Jose Bolden; Chantal Suarez; Rj Drew; Maliha Toribio Discharge Orders/Prescriptions Prescriptions: New cefepime 2 gram Recon Soln 2 g IV Q8 40 Days Qty: 120 0RF Rx Instructions: dx: knee PJI. Stop date 05/20/24. Weekly bmp, cbc, and esr. Fax to [phone]. Routine picc care per protocol. sennosides-docusate sodium [Stimulant Laxative Plus] 8.6-50 mg Tablet 2 tab PO BID Qty: 0 0RF clopidogrel 75 mg Tablet 75 mg PO DAILY Qty: 0 0RF acetaminophen 500 mg Tablet 1,000 mg PO Q8 Qty: 0 0RF Rx Instructions: Acetaminophen 1 g every 8 hourly for 1 week and then every 8 hourly as needed needed for severe pain baclofen 10 mg Tablet 5 mg PO TID PRN (Reason: muscle spasm) Qty: 0 0RF bisacodyl 10 mg Suppository 10 mg CO DAILY PRN (Reason: Severe constipation) Qty: 0 0RF lisinopril 5 mg Tablet 5 mg PO DAILY Qty: 0 0RF Rx Instructions: Hold for SBP less than 130 mmHg insulin lispro [Humalog KwikPen Insulin] 100 unit/mL Insulin Pen See Protocol subcut ACHS Qty: 0 0RF Protocol: 3. Sliding Scale Insulin Med Dosing Condition: 150-189 mg/dl = 1 unit Condition: 190-229 mg/dl = 2 units Condition: 230-269 mg/dl = 3 units Condition: 270-309 mg/dl = 4 units Condition: 310-349 mg/dl = 5 units Condition: 350-399 mg/dl = 6 units Condition: 400-449 mg/dl = 7 units Condition: Greater than 449 call physician Protocol Text: Suggested for: - Patients on Total Daily Insulin Dose of 37-55 units - Obese, infected, or steroid patients MEDIUM DOSING ALGORITHIM L.acidoph,saliva-B.bif-S.therm 175 mg Capsule 1 cap PO BID Qty: 0 0RF ferrous sulfate 325 mg (65 mg iron) tablet 325 mg PO QODAY Qty: 30 2RF ascorbic acid (vitamin C) 500 mg tablet 500 mg PO BID Qty: 60 2RF polyethylene glycol 3350 [Miralax] 17 gram/dose powder 17 g PO BID 30 Days Qty: 1020 0RF Rx Instructions: Goal to have 1 bowel movement per day oxycodone 5 mg tablet 2.5 mg PO Q4H PRN PRN (Reason: Pain Score 4-10) 3 Days Qty: 10 0RF Rx Instructions: Oxycodone 2.5 mg for moderate pain and 5 mg for severe pain respectively. Continued (DME) 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 See Rx Instructions .Route .MEDSUPPLY Qty: 1 0RF Rx Instructions: Wear at night. folic acid 1 mg tablet 2 mg PO DAILY methotrexate sodium 2.5 mg tablet 2.5 mg PO SA Rx Instructions: take 8 tablets per week gabapentin 800 mg tablet 800 mg PO TID dexamethasone 0.5 mg/5 mL solution 0.5 mg PO BID Qty: 100 0RF pantoprazole [Protonix] 20 mg Tablet,Delayed Release (Dr/Ec) 40 mg PO BID metformin 500 mg tablet extended release 24 hr 500 mg PO BID methadone 10 mg tablet 10 mg PO Q8H PRN (Reason: pain) potassium chloride 20 mEq tablet,ER particles/crystals 20 meq PO DAILY fluticasone propionate 50 mcg/actuation spray,suspension 2 spray INTRANASAL DAILY PRN (Reason: allergy symptoms) duloxetine 60 mg capsule,delayed release(DR/EC) 60 mg PO DAILY spironolactone 25 mg tablet 25 mg PO DAILY Probiotic 20 billion cell capsule, sprinkle 1 cap PO DAILY carvedilol 3.125 mg tablet 3.125 mg PO BID Qty: 60 11RF Held aspirin [Adult Aspirin Regimen] 81 mg tablet,delayed release (DR/EC) 81 mg PO DAILY Hold Instructions: Hold for 1 month while she is taking Xarelto. Discontinued baclofen 10 mg tablet 5 - 10 mg PO TID PRN (Reason: muscle spasm) amlodipine-benazepril 10-20 mg capsule 1 cap PO DAILY clopidogrel 75 mg tablet 75 mg PO .COMPLEX Qty: 90 3RF Rx Instructions: 75 mg orally take FOUR TABLETS (300mg) all at once TODAY for loading dose for heart stents; then take ONE tablet by mouth daily; STOP BRILINTA Referrals / Follow Up: Margarita Drake DO [Primary Care Provider] - Within 2 Weeks Rj Drew MD [Med Staff - Active Staff] - Within 1 Month Jose Bolden MD [Med Staff - Active Staff] - Within 2 Weeks Disposition Disposition (needs filled in before D/C Order can be placed): Snf Facility
--- NOTE | 2024-04-12 10:20 | PCM.DC.SUM ---
Providers Date of Admission: 04/07/24 Date of Discharge: 04/12/24 Primary Care Physician: Dr. Margarita Drake, Consultations 04/06/24 15:23 Consult: Orthopedics Routine Consulting Provider: Jose Bolden Reason for Consult: bialteral knee pain, elevated wbc EMERGENT Consult: No MD Notified: Yes Date Notified: 04/06/24 Time Notified: 15:23 Method of Notification: Verbal 04/06/24 18:09 Consult: Cardiology Routine Consulting Provider: Maliha Toribio Reason for Consult: surgical clearance EMERGENT Consult: Yes MD Notified: Yes Date Notified: 04/06/24 Time Notified: 18:10 Method of Notification: Verbal Method of Consult:: In-Person 04/07/24 13:11 Consult: Infectious Disease Routine Consulting Provider: Rj Drew Reason for Consult: INFECTED RIGHT KNEE JOINT EMERGENT Consult: No MD Notified: Yes Date Notified: 04/08/24 Time Notified: 06:09 Method of Notification: Answering Service Reason For Visit: BILATERAL KNEE PAIN, LEUCOCYTOSIS Diagnosis Discharge Diagnosis (1) Inability to ambulate due to knee: Status: Acute Code(s): R26.2 - Difficulty in walking, not elsewhere classified Plan 78-year-old female was admitted with complaint of bilateral knee pain with swelling for last 1 week. Patient was admitted also last week for depleted bilateral knee pain but at that time she refused for rehab. Complain of left knee swelling and pain more than right. #Debility due to acute on chronic bilateral knee pain Patient was recently admitted and admitted discharged on 04/02/2024 when she complained of similar bilateral knee pain and at that time also had UTI with E. coli being cultured She refused SNF placement and was discharged home. She comes in today because of worsening bilateral knee pain. Admit to [facility] with telemetry. Consult PT OT. Fall precautions. P.o. Tylenol, patient already on methadone. Will continue this. X-rays done just on 03/30/2024 showed no fracture or dislocation is stable postsurgical changes from left knee arthroplasty as well as small joint effusion and soft tissue swelling. consult orthopedic surgery per patient request. X-rays ordered of the knees. 04/07: Patient had right and left knee arthrocentesis by Dr. Sykes yesterday. Results reviewed. Gram stain and culture pending but shows mainly highly leukocytosis, more than 65,000 with 96% neutrophils, 4% monocytes. Patient does not have fever or tachycardia but BP on lower side 93/51, 105/59 therefore decided to start on IV antibiotics empirically. IV vancomycin and ceftriaxone started. Patient had bilateral knees replaced. Clinically PJI. Twelve-lead EKG individually reviewed. Normal sinus rhythm 62 bpm. Old infarct. QTc 442 ms. Patient was also seen by paper hanger and discussed with Dr. Ayala. Patient had 2 g IV preop. Started on vancomycin and IV ceftriaxone. ID consult for tomorrow AM 04/08: Patient had right knee irrigation, debridement complete synovectomy and 1 component revision on 04/07 and similar surgery for left knee today. Patient was seen by ID and advised to continue empiric vancomycin and ceftriaxone. She also has history of frequent UTI. 04/09: Left knee irrigation and synovectomy on 04/08. Joint fluid and surgical culture growing GNR, Serratia with possible Pseudomonas. IV antibiotic changed to Zosyn. PICC line ordered. ID follow-up reviewed. 04/10: Patient did not had bowel movement since Monday. She stated it is normal for her to have 1 BM per week. Advised that she is on high-dose of opioids and might get ileus or obstruction. Patient on senna S and MiraLAX twice daily. Dulcolax 10 mg ordered. 04/11: Continue PT and OT. Patient not had bowel movement. Dulcolax 10 mg oral 1 dose and suppository ordered 04/12: Fluid no surgical culture shows positive Enterobacter, she Loescher, Klebsiella, Pseudomonas including CRE and ESBL. ID recommended 6 weeks of IV meropenem and oral doxycycline. ID follow-up in 2 weeks. 04/11: Acute blood loss anemia due to procedure and antiplatelet/anticoagulant agents: The patient had hemoglobin drop from 11.7-8.4 after 2 knee surgeries. Patient also on aspirin, Plavix and Xarelto for recent cardiac stents and Xarelto for DVT prophylaxis. Patient had 2 doses of Xarelto. For now we will discontinue we will consider resuming after H&H is stabilized Hemoglobin 8.4. Platelet count 461,000. Hold Xarelto today. Patient had last dose on 04/10/2020. May be resumed tomorrow AM if H&H remains stable. 04/12: Patient had a stool for occult blood positive. H&H ordered. Patient high risk of DVT therefore needs to continue Xarelto 10 mg daily and Plavix 75 mg daily for recent cardiac stent. Baby aspirin discontinued. On PPI protection 40 mg twice daily. Prescription also sent for ferrous sulfate and ascorbic acid #Leukocytosis: WBCs 27.1. Due to PJI Improvement in leukocytosis. 8/leukocytosis resolved #Hypertension: On amlodipine benazepril and carvedilol. IV hydralazine as needed. 04/11: BP 99/51. Hold antihypertensive medication. #CAD s/p stents: On aspirin and carvedilol as well as Plavix and high intensity statin. Patient had PCI by Dr. Reid on January 2024. History of Takotsubo cardiomyopathy with improvement of LV function to normal. Patient was put back on Plavix and Xarelto 10 mg daily. #Type 2 diabetes mellitus: On metformin. Insulin sliding scale. Tactics ACHS. 04/11: glucose is controlled. #History of rheumatoid arthritis: On methotrexate DVT prophylaxis: lovenox Code status:DNRCCA no intubation Patient counseled extensively about different types of CODE STATUS including full code, DNR CCA and DNR CCA. Patient elects to be DNRCCA no intubation. Discharge medication reconciliation done. Discharge follow-up instructions completed. Discharge process discussed with the patient and all questions were answered to patient's satisfaction. Follow with PCP in 1 to 2 weeks Total time spent, exact 35 minutes on discharge meds reconciliation, examination, coordination of care with nurses and ancillary staff, review of imaging and blood test and discussion with the patient on follow-up instructions. Medications at Discharge Home Medications 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 #1 ea 06/29/21 pantoprazole 20 mg tablet,delayed release (Protonix) 40 mg PO BID reflux 10/04/22 folic acid 1 mg tablet 2 mg PO DAILY SUPPLEMENT 11/17/22 methotrexate sodium 2.5 mg tablet 2.5 mg PO SA arthritis pain 11/17/22 gabapentin 800 mg tablet 800 mg PO TID disc degeneration 11/17/23 aspirin 81 mg tablet,delayed release (Adult Aspirin Regimen) 81 mg PO DAILY heart health 01/04/24 metformin 500 mg tablet,extended release 24 hr 500 mg PO BID diabetes 01/05/24 methadone 10 mg tablet 10 mg PO Q8H PRN pain 02/20/24 potassium chloride 20 mEq tablet,extended release(part/cryst) 20 meq PO DAILY supplement 02/20/24 fluticasone propionate 50 mcg/actuation nasal spray,suspension 2 spray intranasal DAILY PRN allergy symptoms 02/28/24 carvedilol 3.125 mg tablet 3.125 mg PO BID #60 TABLETS 03/28/24 dexamethasone 0.5 mg/5 mL oral solution 0.5 mg (5 mL) PO BID #100 mL 03/30/24 duloxetine 60 mg capsule,delayed release 60 mg PO DAILY 03/30/24 L.acidophil,rhamnosus-B.breve,longum 20 billion cell sprinkle capsule (Probiotic) 1 cap PO DAILY 04/06/24 spironolactone 25 mg tablet 25 mg PO DAILY 04/06/24 L.acidophil,salivari-Bifido bifidum-Strep thermoph 175 mg capsule 1 cap PO BID #0 caps 04/12/24 acetaminophen 500 mg tablet 1,000 mg (2 x 500 mg) PO Q8 #0 tabs 04/12/24 ascorbic acid (vitamin C) 500 mg tablet 500 mg PO BID #60 tabs 04/12/24 baclofen 10 mg tablet 5 mg (1/2 x 10 mg) PO TID PRN muscle spasm #0 tabs 04/12/24 bisacodyl 10 mg rectal suppository 10 mg MS DAILY PRN Severe constipation #0 ea 04/12/24 clopidogrel 75 mg tablet 75 mg PO DAILY #0 tabs 04/12/24 doxycycline hyclate 100 mg capsule 100 mg PO BID #90 caps 04/12/24 ferrous sulfate 325 mg (65 mg iron) tablet 325 mg PO QODAY #30 tabs 04/12/24 insulin lispro 100 unit/mL subcutaneous pen (Humalog KwikPen (U-100) Insulin) See Protocol subcut ACHS #0 mL 04/12/24 lisinopril 5 mg tablet 5 mg PO DAILY #0 tabs 04/12/24 meropenem 1 gram intravenous solution 1 g IV Q8H 40 days 04/12/24 oxycodone 5 mg tablet 2.5 mg (1/2 x 5 mg) PO Q4H PRN PRN Pain Score 4-10 3 days #10 tabs 04/12/24 polyethylene glycol 3350 17 gram/dose oral powder (Miralax) 17 g PO BID 1 month #1,020 grams 04/12/24 sennosides 8.6 mg-docusate sodium 50 mg tablet (Stimulant Laxative Plus) 2 tab PO BID #0 tabs 04/12/24 Weight / BMI Weight Weight: 111 lb 1.808 oz Body Mass Index (BMI) 19.6 ABG / Lab / Microbiology Data 04/11/24 06:11 04/11/24 06:11 Laboratory: Laboratory Results - last 24 hr 04/11/24 11:41: POC Glucose 122 H 04/11/24 16:21: POC Glucose 130 H 04/11/24 21:13: POC Glucose 110 H 04/12/24 07:07: POC Glucose 86 Microbiology: Microbiology 04/07/24 08:13 Blood Culture (Wb) - Right Hand Blood Culture - Final No growth in 5 days. 04/08/24 Unknown Tissue - Knee Gram Stain - Final 04/08/24 Unknown Tissue - Knee Wound Culture - Preliminary Klebsiella pneumoniae sp pneum Serratia marcescens 04/08/24 Unknown Tissue - Knee Anaerobic Culture - Preliminary Checking for anaerobes, further studies to follow. 04/08/24 Unknown Tissue - Knee Gram Stain - Final 04/08/24 Unknown Tissue - Knee Wound Culture - Final ESBL Klebsiella pneumoniae pne Serratia marcescens 04/08/24 Unknown Tissue - Knee Anaerobic Culture - Preliminary Checking for anaerobes, further studies to follow. 04/12/24 01:55 Stool Stool Occult Blood (THADDEUS) - Final Occult Blood Positive 04/08/24 Unknown Tissue - Knee Gram Stain - Final 04/08/24 Unknown Tissue - Knee Wound Culture - Final Klebsiella oxytoca 04/08/24 Unknown Tissue - Knee Anaerobic Culture - Preliminary Checking for anaerobes, further studies to follow. 04/07/24 13:00 Tissue - Knee Gram Stain - Final 04/07/24 13:00 Tissue - Knee Wound Culture - Final Serratia marcescens Pseudomonas aeruginosa 04/07/24 13:00 Tissue - Knee Anaerobic Culture - Final No anaerobic bacteria isolated. 04/07/24 13:00 Tissue - Knee Gram Stain - Final 04/07/24 13:00 Tissue - Knee Wound Culture - Final Serratia marcescens 04/07/24 13:00 Tissue - Knee Anaerobic Culture - Final No anaerobic bacteria isolated. 04/07/24 13:00 Tissue - Knee Gram Stain - Final 04/07/24 13:00 Tissue - Knee Wound Culture - Final Enterobacter cloacae complex 04/07/24 13:00 Tissue - Knee Anaerobic Culture - Preliminary No growth in 48 hours. 04/06/24 17:00 Fluid - Synovial (joint) Gram Stain - Final 04/06/24 17:00 Fluid - Synovial (joint) Body Fluid Culture - Final Staphylococcus epidermidis 04/06/24 17:00 Fluid - Synovial (joint) Anaerobic Culture - Preliminary No growth in 48 hours. 04/06/24 17:00 Fluid - Synovial (joint) Gram Stain - Final 04/06/24 17:00 Fluid - Synovial (joint) Body Fluid Culture - Final Staphylococcus epidermidis 04/06/24 17:00 Fluid - Synovial (joint) Anaerobic Culture - Preliminary No growth in 48 hours. 04/07/24 08:05 Nasal Secretion MRSA (PCR) - Final D/C Instructions Additional Instructions: Follow-up weekly BMP, liver chemistry and twice weekly CBC. Follow-up in ID in 2 weeks Meaningful Use Info Meaningful Use Meaningful Use Diagnoses (Choose all that apply): None applicable Ischemic Stroke Statin Dosing Therapy Reference: STATIN DOSE THERAPY REFERENCE: * Patients > 75 years receive moderate or high dose statin therapy. * Patients 75 years or YOUNGER should receive HIGH intensity statin dose unless contraindicated. You will be required to document reason for non-treatment if statin daily dose does not meet guidelines. HIGH DOSE STATIN THERAPY DAILY Atorvastatin > than or = to 40 mg Rosuvastatin > than or = to 20 mg Amlodipine + Atorvastatin > than or = to 2.5/40 mg Ezetimibe + Simvastatin 10/80 mg Simvastatin 80mg Discharge Plan Admission Admit Date/Time: 04/07/24 14:57 Primary Reason for Your Visit: Bilateral knee PJI Attending Provider: Everton Champagne Primary Care Provider: Margarita Drake Consulting Providers: Jose Bolden; Chantal Suarez; Rj Drew; Maliha Toribio Instructions Additional Instructions / Restrictions: CBC twice weekly. BMP and liver profile weekly. Discharge Orders/Prescriptions Prescriptions: New sennosides-docusate sodium [Stimulant Laxative Plus] 8.6-50 mg Tablet 2 tab PO BID Qty: 0 0RF clopidogrel 75 mg Tablet 75 mg PO DAILY Qty: 0 0RF acetaminophen 500 mg Tablet 1,000 mg PO Q8 Qty: 0 0RF Rx Instructions: Acetaminophen 1 g every 8 hourly for 1 week and then every 8 hourly as needed needed for severe pain baclofen 10 mg Tablet 5 mg PO TID PRN (Reason: muscle spasm) Qty: 0 0RF bisacodyl 10 mg Suppository 10 mg MS DAILY PRN (Reason: Severe constipation) Qty: 0 0RF lisinopril 5 mg Tablet 5 mg PO DAILY Qty: 0 0RF Rx Instructions: Hold for SBP less than 130 mmHg insulin lispro [Humalog KwikPen Insulin] 100 unit/mL Insulin Pen See Protocol subcut ACHS Qty: 0 0RF Protocol: 3. Sliding Scale Insulin Med Dosing Condition: 150-189 mg/dl = 1 unit Condition: 190-229 mg/dl = 2 units Condition: 230-269 mg/dl = 3 units Condition: 270-309 mg/dl = 4 units Condition: 310-349 mg/dl = 5 units Condition: 350-399 mg/dl = 6 units Condition: 400-449 mg/dl = 7 units Condition: Greater than 449 call physician Protocol Text: Suggested for: - Patients on Total Daily Insulin Dose of 37-55 units - Obese, infected, or steroid patients MEDIUM DOSING ALGORITHIM L.acidoph,saliva-B.bif-S.therm 175 mg Capsule 1 cap PO BID Qty: 0 0RF ferrous sulfate 325 mg (65 mg iron) tablet 325 mg PO QODAY Qty: 30 2RF ascorbic acid (vitamin C) 500 mg tablet 500 mg PO BID Qty: 60 2RF polyethylene glycol 3350 [Miralax] 17 gram/dose powder 17 g PO BID 30 Days Qty: 1020 0RF Rx Instructions: Goal to have 1 bowel movement per day oxycodone 5 mg tablet 2.5 mg PO Q4H PRN PRN (Reason: Pain Score 4-10) 3 Days Qty: 10 0RF Rx Instructions: Oxycodone 2.5 mg for moderate pain and 5 mg for severe pain respectively. meropenem 1 gram recon soln 1 g IV Q8H 40 Days Rx Instructions: dx: knee PJI. Stop date 05/20/24. Weekly bmp, cbc, LFT, and esr. Fax to [phone]. Routine picc care per protocol. doxycycline hyclate 100 mg capsule 100 mg PO BID Qty: 90 0RF Continued (DME) 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 See Rx Instructions .Route .MEDSUPPLY Qty: 1 0RF Rx Instructions: Wear at night. folic acid 1 mg tablet 2 mg PO DAILY methotrexate sodium 2.5 mg tablet 2.5 mg PO SA Rx Instructions: take 8 tablets per week gabapentin 800 mg tablet 800 mg PO TID dexamethasone 0.5 mg/5 mL solution 0.5 mg PO BID Qty: 100 0RF pantoprazole [Protonix] 20 mg Tablet,Delayed Release (Dr/Ec) 40 mg PO BID metformin 500 mg tablet extended release 24 hr 500 mg PO BID methadone 10 mg tablet 10 mg PO Q8H PRN (Reason: pain) potassium chloride 20 mEq tablet,ER particles/crystals 20 meq PO DAILY fluticasone propionate 50 mcg/actuation spray,suspension 2 spray INTRANASAL DAILY PRN (Reason: allergy symptoms) duloxetine 60 mg capsule,delayed release(DR/EC) 60 mg PO DAILY spironolactone 25 mg tablet 25 mg PO DAILY Probiotic 20 billion cell capsule, sprinkle 1 cap PO DAILY carvedilol 3.125 mg tablet 3.125 mg PO BID Qty: 60 11RF Held aspirin [Adult Aspirin Regimen] 81 mg tablet,delayed release (DR/EC) 81 mg PO DAILY Hold Instructions: Hold for 1 month while she is taking Xarelto. Discontinued baclofen 10 mg tablet 5 - 10 mg PO TID PRN (Reason: muscle spasm) amlodipine-benazepril 10-20 mg capsule 1 cap PO DAILY clopidogrel 75 mg tablet 75 mg PO .COMPLEX Qty: 90 3RF Rx Instructions: 75 mg orally take FOUR TABLETS (300mg) all at once TODAY for loading dose for heart stents; then take ONE tablet by mouth daily; STOP BRILINTA Referrals / Follow Up: Margarita Drake DO [Primary Care Provider] - In 1 Week Rj Drew MD [Med Staff - Active Staff] - Within 2 Weeks Jose Bolden MD [Med Staff - Active Staff] - Within 2 Weeks Disposition Disposition (needs filled in before D/C Order can be placed): [facility]
--- NOTE | 2024-04-12 10:38 | CASEMGMT ---
Social Work Per physician, pt is ready for discharge today to [facility]. 7000 exemption form completed in [facility]. DC photo studio assistant updated and to complete dc. [facility]position[facility], skilled level of care under convalescent stay HAKAN Lamb
[2024-04-12] MEDS: Spironolactone 25 MG Tablet PO (10:45)
[2024-04-12] MEDS: Lactobacillis Acidophilus 1 CAP PO (10:46)
[2024-04-12] MEDS: Clopidogrel Bisulfate 75 MG Tablet PO (10:46)
[2024-04-12] MEDS: DULoxetine Hcl 60 MG Capsule PO (10:46)
[2024-04-12] MEDS: Carvedilol 3.125 MG TABLET PO (10:46)
[2024-04-12] MEDS: Senna/Docusate Sodium 1 Tablet 2 TABLET PO (10:47)
[2024-04-12] MEDS: Pantoprazole Sodium 20 MG Tablet PO (10:47)
[2024-04-12] MEDS: Cefepime HCl 2 GM in 0.9% Normal Saline (100mL MB+) 100 ML IV (10:50)
[2024-04-12] MEDS: Lisinopril 5 MG Tablet PO (10:51)
[2024-04-12] MEDS: Menthol/Lanolin/Calamine/Znox 113 GM Tube 1 APPLIC TOPICAL (10:52)
--- NOTE | 2024-04-12 11:16 | CASEMGMT ---
Discharge Planning Discharge orders, signed med list, and transport time sent to [facility] via [facility]. Physicians will transport patient by wheelchair at noon. Nursing, SW, patient, and her significant other updated. Jumana Carl DC Planning Asst.
--- NOTE | 2024-04-12 11:31 | NURSING ---
Report called to Carly at [facility]
[2024-04-12] MEDS: Baclofen 10 MG Tablet 5 MG PO (11:42)
[2024-04-12 12:08] LABS: Bedside Glucose 110 mg/dL (74-106)
--- NOTE | 2024-04-12 12:53 | PCM.PN.ID ---
Physical Exam Narrative Feeling ok, discharge planned, pain controlled, no fever Const alert and no apparent distress General Appearance: cooperative Resp normal air movement and clear to auscultation bilaterally Cardio regular rate and regular rhythm GI soft to palpation, non-tender and non-distended Skin no rashes or lesions noted ID ID: Route of nutrition/ use of supplements: [] Nutritional Intake: [] IV Site: [] Wong Catheter: [] Assessment & Plan Assessment/Plan (1) Infection of total right knee replacement: QUALIFIERS: Encounter type: initial encounter Qualified Code(s): T84.53XA - Infection and inflammatory reaction due to internal right knee prosthesis, initial encounter PLAN: OR 04/07/24 for R knee PJI. OR 04/08/24 for L knee. Fluid and surg cx with enterobacter, serratia, klebs, and pseudomonas, including CRE and ESBL now. Will change abx to meropenem iv with doxy po. Plan on 6 weeks iv abx with stop date 05/20/24 with weekly labs, ID followup in 2 weeks. Will follow (2) Infection of total left knee replacement:
== END 2024-04-12 13:00 | disposition skilled nursing facility (03) | DRG 464 ==
LOC: ED 11:29 → MS3 11:42
PROVIDERS: Anesthesiology; Specialist; Admitting Provider Student in an Organized Health Care Education/Training Program; Emergency Provider Emergency Medicine; PCP Internal Medicine; Visit Provider Internal Medicine
PROC: 0SPC09Z Removal of Liner from Right Knee Joint, Open Approach (ICD-10-PCS; CPT 27301; principal; 2024-04-07 14:00)
PROC: 0SPD09Z Removal of Liner from Left Knee Joint, Open Approach (ICD-10-PCS; CPT 27301; principal; 2024-04-08 13:10)
DX: T84.53XA Infection and inflammatory reaction due to internal right knee prosthesis, initial encounter (principal); I42.8 Other cardiomyopathies; D68.32 Hemorrhagic disorder due to extrinsic circulating anticoagulants; D62 Acute posthemorrhagic anemia; E11.65 Type 2 diabetes mellitus with hyperglycemia; B96.5 Pseudomonas (aeruginosa) (mallei) (pseudomallei) as the cause of diseases classified elsewhere; B96.1 Klebsiella pneumoniae [K. pneumoniae] as the cause of diseases classified elsewhere; I10 Essential (primary) hypertension; T84.54XA Infection and inflammatory reaction due to internal left knee prosthesis, initial encounter; E78.5 Hyperlipidemia, unspecified; M79.7 Fibromyalgia; R26.2 Difficulty in walking, not elsewhere classified; I25.10 Atherosclerotic heart disease of native coronary artery without angina pectoris; I25.2 Old myocardial infarction; R19.5 Other fecal abnormalities; G89.4 Chronic pain syndrome; R53.81 Other malaise; B96.89 Other specified bacterial agents as the cause of diseases classified elsewhere; X58.XXXA Exposure to other specified factors, initial encounter; Z66 Do not resuscitate; Z96.653 Presence of artificial knee joint, bilateral; Z95.5 Presence of coronary angioplasty implant and graft; Z79.2 Long term (current) use of antibiotics; Z79.01 Long term (current) use of anticoagulants; Z79.02 Long term (current) use of antithrombotics/antiplatelets; Z79.52 Long term (current) use of systemic steroids; Z79.82 Long term (current) use of aspirin; Z79.84 Long term (current) use of oral hypoglycemic drugs; Z79.891 Long term (current) use of opiate analgesic; Z79.899 Other long term (current) drug therapy
CPT/HCPCS: 36415; 36569; 71045; 73562; 80048; 80076; 80202; 81001; 82274; 82962; 83036; 85014; 85018; 85025; 85027; 85652; 86140; 87015; 87040; 87070; 87075; 87077; 87102; 87116; 87176; 87184; 87186; 87205; 87206; 87641; 89050; 89051; 89060; 93005; 94668; 97162; 97166; 97530; 97803; 99252; 99284; C1776; J7050; J7120; P9612; A4216; G0463; J2405; J2916; J8610

== ENCOUNTER 2024-06-02 06:21 | Emergency (ER) | payer MEDICARE, OTHER, SELFPAY ==
[2024-03-18 13:04] VITALS: BMI 20.7
[2024-06-02] VITALS (8 sets, daily range): BP systolic 97–138; BP diastolic 60–81; PULSE 76–105; RESP 16–22; TEMP 36.6; O2SAT 93–95; BMI 18.3
[2024-06-02 07:12] LABS: Absolute Lymphocyte Count 3.05 X10^3/uL (0.83-4.51); Absolute Neutrophil Count 3.6 X10^3/uL (2.0-7.7); Basophil# 0.09 X10^3/uL; Basophil% 1.2 % (0-1); Eosinophil# 0.28 X10^3/uL; Eosinophils% 3.7 % (0-5); Hematocrit 40.2 % (37-47); Lymphocyte # 3.05 X10^3/ul (0.83-4.51); Lymphocyte % 40.6 % (19-41); Mean Corp Hgb Conc 32.3 g/dL (32-36); Mean Corpuscular Hgb 30.9 pg (27.0-32.0); Mean Corpuscular Volume 95.5 fL (81-99); Mean Platelet Vol. 10.4 fl (6.2-12.0); Monocyte# 0.47 X10^3/uL; Monocyte% 6.3 % (0-10); NRBC Flagged by Analyzer 0 % (0-5); Neutrophil # 3.61 X10^3/uL (2.7-7.7); Neutrophil % 47.9 % (47-70); Platelet Count 281 K/mm3 (150-450); RBC Distribution Width CV 14.1 % (11.6-14.6); RBC Distribution Width SD 49.4 fl (35.1-43.9); Red Blood Count 4.21 M/mm3 (4.2-5.4); White Blood Count 7.5 K/mm3 (4.4-11.0)
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
[2024-06-02 07:30] LABS: AST(SGOT) 21 U/L (15-37); Alanine Aminotransfer ALT/SGPT 15 U/L (13-56); Alkaline Phosphatase 93 U/L (45-117); Anion Gap 9 (5-15); BUN 22 mg/dL (7-18); Bilirubin, Direct 0.18 mg/dL (0.00-0.30); Calcium,Total 8.6 mg/dL (8.5-10.1); Chloride 102 mmol/L (98-107); Creatinine, Serum 1.47 mg/dL (0.55-1.02); EST Glomerular Filtration Rate 36 mL/min (>60); Est Glom Filt Rate - Afr Amer 44 mL/min (>60); Globulin 3.9 g/dL (2.2-4.2); Glucose 110 mg/dL (74-106); Lipase 11 U/L (13-75); Potassium 5.1 mmol/L (3.5-5.1); Protein, Total 6.9 g/dL (6.4-8.2); Sodium Level 136 mmol/L (136-145)
[2024-06-02] MEDS: 0.9% Normal Saline (1000mL) 1,000 ML 999 ML IV ×2 (07:50→10:09)
[2024-06-02] MEDS: 0.9% Normal Saline (500mL Bag) 500 ML 999 ML IV (07:50)
[2024-06-02] MEDS: Magnesium Sulfate 2 GM in Dextrose 5%-Water (100mL Bag) 100 ML IV (07:59)
== END 2024-06-02 12:40 | disposition home or self-care (01) ==
PROVIDERS: Emergency Provider Emergency Medicine; PCP Internal Medicine; Visit Provider Emergency Medicine
DX: E86.0 Dehydration (principal); I42.8 Other cardiomyopathies; E11.9 Type 2 diabetes mellitus without complications; I10 Essential (primary) hypertension; R19.7 Diarrhea, unspecified; I25.10 Atherosclerotic heart disease of native coronary artery without angina pectoris; E78.5 Hyperlipidemia, unspecified; K21.9 Gastro-esophageal reflux disease without esophagitis; I25.2 Old myocardial infarction; Z79.82 Long term (current) use of aspirin; Z79.899 Other long term (current) drug therapy; Z86.711 Personal history of pulmonary embolism; Z86.718 Personal history of other venous thrombosis and embolism; Z95.5 Presence of coronary angioplasty implant and graft
CPT/HCPCS: 80048; 80076; 83690; 83735; 85025; 87631; 96365; 96366; 99284; J7030; A4216

== ENCOUNTER → 2024-06-11 | Outpatient (CLI) | payer MEDICARE, OTHER, SELFPAY ==
[2024-03-18 13:04] VITALS: BMI 20.7
--- NOTE | 2024-06-11 12:45 | EKG12_ITS ---
Test Reason : INFECTION CONTROL Blood Pressure : / mmHG Vent. Rate : 082 BPM Atrial Rate : 082 BPM P-R Int : 178 ms QRS Dur : 062 ms QT Int : 364 ms P-R-T Axes : 066 054 073 degrees QTc Int : 425 ms Normal sinus rhythm Low voltage QRS Septal infarct (cited on or before 02-NOV-2022) Abnormal ECG When compared with ECG of 07-APR-2024 05:03, Criteria for Inferior infarct are no longer Present Non-specific change in ST segment in Inferior leads Nonspecific T wave abnormality now evident in Inferior leads Confirmed by LISANDRA ARAGON, PINEDA ([id number]), editorial manager JAZ VOGEL ([id number]) on 06/12/2024 6:07:06 AM Referred By: Rj Drew Confirmed By:PINEDA FRY MD
[2024-06-11 13:37] LABS: Erythrocyte Sedimentation Rate 9 mm/hr (0-30)
[2024-06-11 13:39] LABS: Hematocrit 35.3 % (37-47); Hemoglobin 11.3 g/dL (12.0-15.0); Mean Corpuscular Hgb 31.4 pg (27.0-32.0); Mean Corpuscular Volume 98.1 fL (81-99); Mean Platelet Vol. 10.3 fl (6.2-12.0); Platelet Count 291 K/mm3 (150-450); RBC Distribution Width CV 14.5 % (11.6-14.6); RBC Distribution Width SD 52.1 fl (35.1-43.9); White Blood Count 8.7 K/mm3 (4.4-11.0)
[2024-06-11 13:58] LABS: AST(SGOT) 10 U/L (15-37); Alanine Aminotransfer ALT/SGPT 8 U/L (13-56); Albumin, Serum 2.5 g/dL (3.2-5.0); Alkaline Phosphatase 72 U/L (45-117); Anion Gap 8 (5-15); BUN 11 mg/dL (7-18); BUN/Creat Ratio 9.3 RATIO (10-20); Bilirubin, Direct 0.09 mg/dL (0.00-0.30); Chloride 103 mmol/L (98-107); Creatinine, Serum 1.18 mg/dL (0.55-1.02); EST Glomerular Filtration Rate 47 mL/min (>60); Est Glom Filt Rate - Afr Amer 57 mL/min (>60); Globulin 3.5 g/dL (2.2-4.2); Glucose 137 mg/dL (74-106); Potassium 4.1 mmol/L (3.5-5.1); Sodium Level 136 mmol/L (136-145)
== END | disposition home or self-care (01) ==
PROVIDERS: PCP Internal Medicine; Referring Provider Internal Medicine Infectious Disease; Visit Provider Internal Medicine Infectious Disease
DX: T84.59XA Infection and inflammatory reaction due to other internal joint prosthesis, initial encounter (principal)
CPT/HCPCS: 36415; 80048; 80076; 85027; 85652; 93005

== ENCOUNTER → 2024-06-19 | Outpatient (CLI) | payer MEDICARE, OTHER, SELFPAY ==
[2024-03-18 13:04] VITALS: BMI 20.7
--- NOTE | 2024-06-19 13:15 | RAD_ITS ---
INDICATION: Evaluate C1-2 and C2-3 subluxation; neck pain -- Perform with flexion and extension views EXAMINATION/TECHNIQUE: X-RAY - XR Spine Cervical 4 or 5 Views COMPARISON: Prior study dated: 12/16/2022 FINDINGS: VERTEBRAE: Anterior fusion of the vertebral body of C3-C6 with plates and screws. No acute fracture seen stable grade 1 anterolisthesis of C2 over C3 measuring about 5 mm essentially unchanged allowing for the difference in patient''s positioning without significance change on the flexion and extension views. Straightening of the cervical spine. No significant facet arthropathy. DISCS: Narrowing of C2-C3 disc space. NECK SOFT TISSUES: No prevertebral soft tissue widening. LUNG APICES: Clear. RAD/Cerv Spine 4 or 5 Views IMPRESSION: No significant change since previous examination.. Electronically Signed: Rolly Aviles MD at 14:12 EDT ,
== END | disposition home or self-care (01) ==
LOC: MTRAD 13:15
PROVIDERS: PCP Internal Medicine; Referring Provider Psychiatry & Neurology Neurology; Visit Provider Psychiatry & Neurology Neurology
DX: M54.2 Cervicalgia (principal)
CPT/HCPCS: 72050

== ENCOUNTER → 2024-07-16 | Outpatient (CLI) | payer MEDICARE, OTHER, SELFPAY ==
[2024-03-18 13:04] VITALS: BMI 20.7
[2024-07-16 16:19] LABS: Absolute Lymphocyte Count 1.65 X10^3/uL (0.83-4.51); Absolute Neutrophil Count 2.3 X10^3/uL (2.0-7.7); Basophil# 0.03 X10^3/uL; Basophil% 0.6 % (0-1); Eosinophil# 0.28 X10^3/uL; Eosinophils% 5.9 % (0-5); Hematocrit 30.7 % (37-47); Hemoglobin 9.5 g/dL (12.0-15.0); Lymphocyte # 1.65 X10^3/ul (0.83-4.51); Lymphocyte % 34.7 % (19-41); Mean Corp Hgb Conc 30.9 g/dL (32-36); Mean Corpuscular Hgb 31.4 pg (27.0-32.0); Mean Corpuscular Volume 101.3 fL (81-99); Mean Platelet Vol. 10.3 fl (6.2-12.0); Monocyte# 0.45 X10^3/uL; Monocyte% 9.5 % (0-10); NRBC Flagged by Analyzer 0 % (0-5); Neutrophil # 2.33 X10^3/uL (2.7-7.7); Neutrophil % 49.1 % (47-70); Platelet Count 267 K/mm3 (150-450); RBC Distribution Width CV 14.6 % (11.6-14.6); RBC Distribution Width SD 54.8 fl (35.1-43.9); Red Blood Count 3.03 M/mm3 (4.2-5.4); White Blood Count 4.8 K/mm3 (4.4-11.0)
[2024-07-16 16:48] LABS: Anion Gap 7 (5-15); BUN 11 mg/dL (7-18); BUN/Creat Ratio 9.3 RATIO (10-20); Calcium,Total 7.9 mg/dL (8.5-10.1); Chloride 101 mmol/L (98-107); Creatinine, Serum 1.18 mg/dL (0.55-1.02); EST Glomerular Filtration Rate 47 mL/min (>60); Est Glom Filt Rate - Afr Amer 57 mL/min (>60); Glucose 140 mg/dL (74-106); Magnesium 1.4 mg/dL (1.6-2.6); Potassium 3.3 mmol/L (3.5-5.1); Sodium Level 137 mmol/L (136-145)
== END | disposition home or self-care (01) ==
PROVIDERS: PCP Internal Medicine; Referring Provider Nurse Practitioner Gerontology; Visit Provider Nurse Practitioner Gerontology
DX: R53.1 Weakness (principal)
CPT/HCPCS: 36415; 80048; 83735; 85025

== ENCOUNTER → 2024-07-24 | Outpatient (CLI) | payer MEDICARE, OTHER, SELFPAY ==
[2024-03-18 13:04] VITALS: BMI 20.7
--- NOTE | 2024-07-24 09:37 | CDU_ITS ---
Reason For Study: Dizziness Rt. Velocities/BP Lt. Velocities/BP Prox CCA 51.0/11.8 cm/sec. Prox CCA 53.1/12.1 cm/sec. Mid CCA 42.9/9.8 cm/sec. Mid CCA 47.0/13.0 cm/sec. Dist CCA 49.5/10.4 cm/sec. Dist CCA 52.0/14.5 cm/sec. Prox ICA 30.6/11.3 cm/sec. Prox ICA 37.2/10.1 cm/sec. Mid ICA 57.0/18.8 cm/sec. Mid ICA 38.9/14.5 cm/sec. Dist ICA 42.0/17.0 cm/sec. Dist ICA 38.1/14.5 cm/sec. Rt. ICA/CCA = 1.3. Lt. ICA/CCA = 0.8. Prox ECA 61.0/7.2 cm/sec. Prox ECA 46.8/5.8 cm/sec. Rt. Vert. 36.7/9.7 cm/sec. Lt. Vert. 45.5/13.5 cm/sec. Right Extracranial There is intimal thickening but no significant atherosclerotic plaque noted in the right common carotid artery. There is intimal thickening but no significant atherosclerotic plaque noted in the right internal carotid artery. The right internal carotid artery is very tortuous. The right external carotid artery is not well visualized. Antegrade flow is noted in the right vertebral artery. Left Extracranial There is intimal thickening but no significant atherosclerotic plaque noted in the left common carotid artery. There is heterogeneous, irregular atherosclerotic plaque noted in the left internal carotid artery. The left internal carotid artery is very tortuous. There is intimal thickening but no significant atherosclerotic plaque noted in the left external carotid artery. Antegrade flow is noted in the left vertebral artery. Procedure Carotid Duplex [id number]. This is a Carotid Duplex examination using B-mode, color flow and specral Doppler. The exam was diagnostic. Exam performed in department. VL/Carotid Duplex Ultrasound Interpretation Summary Normal right extracranial internal carotid. Mild (<50%) stenosis left extracranial internal carotid. Patent and antegrade vertebrals bilaterally. Ordering Physician: Allyn Manley Referring Physician: Freeman Angel Performed By: Ronaldo Thayer RVT
[2024-07-24 10:41] LABS: Absolute Lymphocyte Count 1.72 X10^3/uL (0.83-4.51); Basophil# 0.05 X10^3/uL; Basophil% 0.7 % (0-1); Eosinophil# 0.12 X10^3/uL; Eosinophils% 1.6 % (0-5); Hematocrit 35.9 % (37-47); Hemoglobin 11.3 g/dL (12.0-15.0); Lymphocyte # 1.72 X10^3/ul (0.83-4.51); Lymphocyte % 23.4 % (19-41); Mean Corp Hgb Conc 31.5 g/dL (32-36); Mean Corpuscular Hgb 31.6 pg (27.0-32.0); Mean Corpuscular Volume 100.3 fL (81-99); Mean Platelet Vol. 9.9 fl (6.2-12.0); Monocyte# 0.44 X10^3/uL; NRBC Flagged by Analyzer 0 % (0-5); Neutrophil # 5.01 X10^3/uL (2.7-7.7); Platelet Count 359 K/mm3 (150-450); RBC Distribution Width CV 14.3 % (11.6-14.6); RBC Distribution Width SD 53.2 fl (35.1-43.9); Red Blood Count 3.58 M/mm3 (4.2-5.4); White Blood Count 7.4 K/mm3 (4.4-11.0)
[2024-07-24 11:04] LABS: Anion Gap 5 (5-15); BUN 15 mg/dL (7-18); BUN/Creat Ratio 17.6 RATIO (10-20); Calcium,Total 8.7 mg/dL (8.5-10.1); Chloride 104 mmol/L (98-107); Creatinine, Serum 0.85 mg/dL (0.55-1.02); EST Glomerular Filtration Rate 68 mL/min (>60); Est Glom Filt Rate - Afr Amer 82 mL/min (>60); Glucose 110 mg/dL (74-106); Potassium 3.1 mmol/L (3.5-5.1); Sodium Level 138 mmol/L (136-145)
[2024-07-24 11:10] LABS: Vitamin B12 342 pg/mL (211-911)
[2024-07-25 15:09] LABS: Folate, RBC (Hct) Test 35.4 % (34.0-46.6); Folates, RBC Test 1508 ng/mL (>498)
== END | disposition home or self-care (01) ==
LOC: CVS 09:35 → LAB 10:21
PROVIDERS: PCP Internal Medicine; Referring Provider Nurse Practitioner Gerontology; Visit Provider Nurse Practitioner Gerontology
DX: R42 Dizziness and giddiness (principal); I10 Essential (primary) hypertension
CPT/HCPCS: 36415; 80048; 82607; 82747; 85014; 85025; 93880

== ENCOUNTER 2024-08-09 12:17 | Emergency (ER) | payer MEDICARE, OTHER, SELFPAY ==
[2024-03-18 13:04] VITALS: BMI 20.7
[2024-08-09 12:17] VITALS: BP 162/105; PULSE 104; RESP 16; TEMP 36.6; O2SAT 97
--- NOTE | 2024-08-09 12:57 | EKG12_ITS ---
Test Reason : Blood Pressure : */* mmHG Vent. Rate : 81 BPM Atrial Rate : 81 BPM P-R Int : 152 ms QRS Dur : 74 ms QT Int : 432 ms P-R-T Axes : * -25 71 degrees QTcB Int : 501 ms Normal sinus rhythm Inferior infarct , age undetermined Anterior infarct (cited on or before 02-Nov-2022) Abnormal ECG baseline artifact Confirmed by Edin Dolan ([id number]), deputy editor in chief JAZ VOGEL ([id number]) on 08/12/2024 6:43:44 AM Referred By: Confirmed By: Edin Dolan
--- NOTE | 2024-08-09 12:57 | RAD_ITS ---
STUDY: X-RAY CHEST REASON FOR EXAM: Female, 79 years old. Weakness TECHNIQUE: Single AP portable view of the chest. COMPARISON: Comparison is made with prior study April 06, 2024. FINDINGS: The lungs are clear and expanded. There is no demonstrated pleural abnormality. There is moderate cardiac enlargement. Normal mediastinum and karthik. Normal visualized pulmonary arteries. There is atherosclerotic tortuosity of the aortic arch and descending thoracic aorta. Normal visualized thoracic spine. Prior fusion of the lower cervical spine. There is no demonstrated abnormality of the visualized soft tissue structures of the upper abdomen. RAD/Chest PA and Lateral IMPRESSION: Cardiomegaly. Electronically Signed: Florian Valenzuela MD at 15:01 EST ,
--- NOTE | 2024-08-09 13:04 | CT_ITS ---
STUDY: CT ABDOMEN AND PELVIS WITH CONTRAST REASON FOR EXAM: Female, 79 years old. Upper abdominal pain. Nausea and vomiting. RADIATION DOSAGE (If Supplied By Facility): CTDIvol = ( 13.78 ) mGy, DLP = ( 486.69 ) mGycm TECHNIQUE: Transaxial images were obtained from the dome of the diaphragm to the symphysis pubis without oral contrast. IV 75mL Isovue-300 was administered. Sagittal and coronal images were reconstructed. Individualized dose optimization techniques were used for this CT. COMPARISON: Comparison is made with prior study dated February 02, 2022. FINDINGS: Stable linear scarring at the left lung base. Coronary artery calcification. There is decreased attenuation of the liver consistent with steatosis. Dilated intrahepatic biliary ducts. Dilated common bile duct down to the insertion of the sphincter of [place].. Patient is status post cholecystectomy. Normal spleen. There is diffuse atrophy of the pancreas. Normal bilateral adrenal glands. Normal right kidney. Stable left renal cyst. This measures 2.1 cm. Normal visualized stomach. Normal small intestine. Normal colon. The patient is status post appendectomy. There is scattered atherosclerotic calcification of the abdominal aorta, without a demonstrated aneurysm. Normal inferior vena cava. Normal retroperitoneum. Normal urinary bladder. Limited visualization of the pelvic structures due to bilateral hip replacement. Prior hysterectomy. Normal abdominal wall. Status post multilevel fusion of the lumbar spine with demineralization. Loss of height of the superior endplates of the T11 and L1 vertebrae. CT/Abdomen/Pelvis W IV Cont ONLY IMPRESSION: Diffuse fatty infiltration of the liver. Status post cholecystectomy. Dilated intrahepatic biliary ducts as well as the common bile duct. Diffuse atrophy of the pancreas. Electronically Signed: Florian Valenzuela MD at 15:00 EST ,
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
[2024-08-09 13:55] LABS: Absolute Lymphocyte Count 0.99 X10^3/uL (0.83-4.51); Absolute Neutrophil Count 3.4 X10^3/uL (2.0-7.7); Basophil# 0.03 X10^3/uL; Basophil% 0.6 % (0-1); Eosinophil# 0.09 X10^3/uL; Eosinophils% 1.9 % (0-5); Hematocrit 41.4 % (37-47); Hemoglobin 13.1 g/dL (12.0-15.0); Lymphocyte # 0.99 X10^3/ul (0.83-4.51); Lymphocyte % 20.5 % (19-41); Mean Corp Hgb Conc 31.6 g/dL (32-36); Mean Corpuscular Hgb 31.9 pg (27.0-32.0); Mean Corpuscular Volume 100.7 fL (81-99); Mean Platelet Vol. 10.3 fl (6.2-12.0); Monocyte# 0.29 X10^3/uL; NRBC Flagged by Analyzer 0 % (0-5); Neutrophil # 3.43 X10^3/uL (2.7-7.7); Neutrophil % 70.8 % (47-70); Platelet Count 275 K/mm3 (150-450); RBC Distribution Width CV 13.2 % (11.6-14.6); RBC Distribution Width SD 48.8 fl (35.1-43.9); Red Blood Count 4.11 M/mm3 (4.2-5.4); White Blood Count 4.8 K/mm3 (4.4-11.0)
[2024-08-09] MEDS: Ondansetron 4 MG/2 ML Vial IV (14:01)
[2024-08-09] MEDS: 0.9% Normal Saline (1000mL) 1,000 ML 999 ML IV (14:01)
[2024-08-09 14:15] LABS: AST(SGOT) 14 U/L (15-37); Alanine Aminotransfer ALT/SGPT 10 U/L (13-56); Albumin, Serum 3.7 g/dL (3.2-5.0); Alkaline Phosphatase 75 U/L (45-117); Anion Gap 5 (5-15); BUN 11 mg/dL (7-18); BUN/Creat Ratio 12.3 RATIO (10-20); Calcium,Total 9.2 mg/dL (8.5-10.1); Chloride 101 mmol/L (98-107); EST Glomerular Filtration Rate 64 mL/min (>60); Est Glom Filt Rate - Afr Amer 78 mL/min (>60); Globulin 3.7 g/dL (2.2-4.2); Glucose 145 mg/dL (74-106); Lipase < 10 U/L (13-75); Potassium 3.9 mmol/L (3.5-5.1); Protein, Total 7.4 g/dL (6.4-8.2); Sodium Level 137 mmol/L (136-145); Troponin-I HS 8 pg/mL (3.0-54.0)
[2024-08-09 15:04] VITALS: BP 142/93; PULSE 75; RESP 16; O2SAT 97
[2024-08-09 15:07] LABS: Mucous, Urine 0 SEEN /hpf (<or=2+); Red Blood Cells-Urine 0 SEEN /hpf (0-5)
[2024-08-09 15:55] LABS: Color, Urine Straw (Yellow); Glucose, Dipstick Normal (Normal); Ketone-Dipstick Negative (Negative); Leukocyte Esterase-Dipstick Negative /ul (Negative); Nitrite-Dipstick Negative (Negative); Occult Blood-Urine Negative /ul (Negative); Protein-Dipstick Negative (Negative); Specific Gravity, Urine 1.005 (1.002-1.030); Urine Bilirubin Dipstick Negative (Negative); Urine Clarity Clear (Clear); Urine Urobilinogen Normal (Normal)
[2024-08-09 16:06] LABS: White Blood Cells 0-5 SEEN /hpf (0-5)
[2024-08-09 16:07] LABS: Bacteria RARE /hpf (None Seen)
[2024-08-09 16:08] LABS: Squamous Epithelial Cells - UA 0-5 SEEN /hpf (5-10)
[2024-08-09 16:26] VITALS: BP 138/74; PULSE 78; RESP 16; TEMP 36.8; O2SAT 96
== END 2024-08-09 16:27 | disposition home or self-care (01) ==
PROVIDERS: Physician Assistant; Emergency Provider Emergency Medicine; PCP Internal Medicine; Visit Provider Emergency Medicine
DX: R11.2 Nausea with vomiting, unspecified (principal); I42.8 Other cardiomyopathies; E11.9 Type 2 diabetes mellitus without complications; R10.13 Epigastric pain; I25.10 Atherosclerotic heart disease of native coronary artery without angina pectoris; G47.33 Obstructive sleep apnea (adult) (pediatric); Z86.718 Personal history of other venous thrombosis and embolism; Z86.711 Personal history of pulmonary embolism
CPT/HCPCS: 71046; 74177; 80053; 81001; 83690; 84484; 85025; 93005; 96361; 96374; 99283; P9612; Q9967; A4216; J2405

== ENCOUNTER → 2024-10-02 | Outpatient (CLI) | payer MEDICARE, OTHER, SELFPAY ==
[2024-03-18 13:04] VITALS: BMI 20.7
[2024-10-02 12:32] LABS: Anion Gap 9 (5-15); BUN 40 mg/dL (7-18); BUN/Creat Ratio 30.5 RATIO (10-20); Calcium,Total 8.7 mg/dL (8.5-10.1); Chloride 101 mmol/L (98-107); Creatinine, Serum 1.31 mg/dL (0.55-1.02); EST Glomerular Filtration Rate 41 mL/min (>60); Est Glom Filt Rate - Afr Amer 50 mL/min (>60); Glucose 137 mg/dL (74-106); Potassium 3.4 mmol/L (3.5-5.1); Sodium Level 137 mmol/L (136-145)
== END | disposition home or self-care (01) ==
LOC: BIMLAB 10:25
PROVIDERS: PCP Internal Medicine; Visit Provider Internal Medicine
DX: E87.6 Hypokalemia (principal)
CPT/HCPCS: 36415; 80048; 83735

== ENCOUNTER → 2024-11-04 | Outpatient (CLI) | payer MEDICARE, OTHER, SELFPAY ==
[2024-03-18 13:04] VITALS: BMI 20.7
[2024-11-04 13:25] LABS: Absolute Lymphocyte Count 1.84 X10^3/uL (0.83-4.51); Absolute Neutrophil Count 3.5 X10^3/uL (2.0-7.7); Basophil# 0.05 X10^3/uL; Basophil% 0.8 % (0-1); Eosinophil# 0.22 X10^3/uL; Eosinophils% 3.6 % (0-5); Hematocrit 39.1 % (37-47); Hemoglobin 12.4 g/dL (12.0-15.0); Lymphocyte # 1.84 X10^3/ul (0.83-4.51); Lymphocyte % 30.1 % (19-41); Mean Corp Hgb Conc 31.7 g/dL (32-36); Mean Corpuscular Hgb 29.6 pg (27.0-32.0); Mean Corpuscular Volume 93.3 fL (81-99); Monocyte# 0.45 X10^3/uL; Monocyte% 7.4 % (0-10); NRBC Flagged by Analyzer 0 % (0-5); Neutrophil # 3.54 X10^3/uL (2.7-7.7); Neutrophil % 57.9 % (47-70); Platelet Count 277 K/mm3 (150-450); RBC Distribution Width CV 13.9 % (11.6-14.6); RBC Distribution Width SD 46.9 fl (35.1-43.9); Red Blood Count 4.19 M/mm3 (4.2-5.4); White Blood Count 6.1 K/mm3 (4.4-11.0)
[2024-11-04 13:55] LABS: ALB/GLOB Ratio 1.2 RATIO (0.9-2.4); AST(SGOT) 24 U/L (<=31); Alanine Aminotransfer ALT/SGPT < 5 U/L (<=34); Albumin, Serum 3.6 g/dL (3.4-4.8); Alkaline Phosphatase 92 U/L (35-104); Anion Gap 11 (5-15); BUN 24 mg/dL (4-19); BUN/Creat Ratio 24.4 RATIO (10-20); Chloride 100 mmol/L (96-108); EST Glomerular Filtration Rate 57 (>60); Globulin 3.1 g/dL (2.2-4.2); Glucose 99 mg/dL (70-99); Protein, Total 6.7 g/dL (5.9-8.4); Sodium Level 135 mmol/L (133-145); Total Bilirubin 0.45 mg/dL (0.00-1.30)
== END | disposition home or self-care (01) ==
LOC: BIMLAB 09:47
PROVIDERS: PCP Internal Medicine; Visit Provider Internal Medicine
DX: E11.9 Type 2 diabetes mellitus without complications (principal); M85.80 Other specified disorders of bone density and structure, unspecified site; I10 Essential (primary) hypertension
CPT/HCPCS: 36415; 80053; 82306; 84439; 84443; 85025

== ENCOUNTER → 2024-11-05 | Outpatient (CLI) | payer MEDICARE, OTHER, SELFPAY ==
[2024-03-18 13:04] VITALS: BMI 20.7
[2024-11-05 19:30] LABS: Microalbumin,Random Urine 17.5 mg/L (NO RANGE EST.); Microalbumin:Creatinine Ratio 414.7 mg/g CRE
== END | disposition home or self-care (01) ==
LOC: LABSPEC 09:33
PROVIDERS: PCP Internal Medicine; Visit Provider Internal Medicine
DX: E11.9 Type 2 diabetes mellitus without complications (principal)
CPT/HCPCS: 82043; 82570

== ENCOUNTER 2024-11-15 10:13 | Emergency (ER) | payer MEDICARE, OTHER, SELFPAY ==
[2024-03-18 13:04] VITALS: BMI 20.7
[2024-11-15 10:13] VITALS: BP 162/118; PULSE 92; RESP 18; TEMP 35.5; O2SAT 100
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
[2024-11-15 10:54] VITALS: BMI 19.3
[2024-11-15 10:55] VITALS: BP 170/105; PULSE 92; RESP 18; O2SAT 98
--- NOTE | 2024-11-15 11:05 | RAD_ITS ---
EXAM: XR Chest, 1 View CLINICAL INDICATION: GENERALIZED WEAKNESS TECHNIQUE: Frontal view of the chest. COMPARISON: No relevant prior studies available. FINDINGS: LUNGS AND PLEURAL SPACES: Left basilar atelectasis or pneumonia. No pneumothorax. HEART: Unremarkable. No cardiomegaly. MEDIASTINUM: Unremarkable. Normal mediastinal contour. BONES/JOINTS: Unremarkable. No acute fracture. RAD/Chest 1 View (Portable) IMPRESSION: Left basilar atelectasis or pneumonia. Reading Location: [facility]
[2024-11-15 11:08] LABS: Absolute Lymphocyte Count 1.59 X10^3/uL (0.83-4.51); Absolute Neutrophil Count 5.6 X10^3/uL (2.0-7.7); Basophil# 0.07 X10^3/uL; Basophil% 0.9 % (0-1); Eosinophil# 0.14 X10^3/uL; Eosinophils% 1.8 % (0-5); Hematocrit 43.2 % (37-47); Hemoglobin 14.3 g/dL (12.0-15.0); Lymphocyte # 1.59 X10^3/ul (0.83-4.51); Lymphocyte % 19.9 % (19-41); Mean Corp Hgb Conc 33.1 g/dL (32-36); Mean Corpuscular Hgb 30.4 pg (27.0-32.0); Mean Corpuscular Volume 91.7 fL (81-99); Monocyte# 0.52 X10^3/uL; Monocyte% 6.5 % (0-10); NRBC Flagged by Analyzer 0 % (0-5); Neutrophil # 5.64 X10^3/uL (2.7-7.7); Neutrophil % 70.5 % (47-70); Platelet Count 333 K/mm3 (150-450); RBC Distribution Width CV 13.9 % (11.6-14.6); RBC Distribution Width SD 47.2 fl (35.1-43.9); Red Blood Count 4.71 M/mm3 (4.2-5.4)
[2024-11-15] MEDS: 0.9% Normal Saline (1000mL) 1,000 ML 1000 ML IV (12:09)
[2024-11-15 12:58] LABS: ALB/GLOB Ratio 1.1 RATIO (0.9-2.4); AST(SGOT) 27 U/L (<=31); Alanine Aminotransfer ALT/SGPT 13 U/L (<=34); Albumin, Serum 3.7 g/dL (3.4-4.8); Alkaline Phosphatase 90 U/L (35-104); Anion Gap 12 (5-15); BUN 20 mg/dL (4-19); BUN/Creat Ratio 23.1 RATIO (10-20); Calcium,Total 9.1 mg/dL (7.6-11.0); Carbon Dioxide 29.1 mmol/L (21.0-32.0); Chloride 95 mmol/L (98-108); Creatinine, Serum 0.85 mg/dL (0.70-1.20); EST Glomerular Filtration Rate 69 (>60); Estimated Creatinine Clearance 40.56 ml/min (50-250); Globulin 3.3 g/dL (2.2-4.2); Glucose 131 mg/dL (70-99); Potassium 3.3 mmol/L (3.3-5.1); Protein, Total 7.1 g/dL (5.9-8.4); Sodium Level 136 mmol/L (133-145); Total Bilirubin 0.54 mg/dL (0.00-1.30)
[2024-11-15 13:00] VITALS: BP 139/96; PULSE 92; RESP 12; TEMP 36.9; O2SAT 94
[2024-11-15 13:25] LABS: Bacteria 0 SEEN /hpf (None Seen); Mucous, Urine 0 SEEN /hpf (<or=2+)
[2024-11-15 13:30] LABS: Color, Urine Yellow (Yellow); Glucose, Dipstick 100 mg/dl (Normal); Ketone-Dipstick Negative (Negative); Leukocyte Esterase-Dipstick 25 /ul (Negative); Nitrite-Dipstick Negative (Negative); Occult Blood-Urine Negative /ul (Negative); Protein-Dipstick 15 mg/dl (Negative); Urine Bilirubin Dipstick Negative (Negative); Urine Clarity Clear (Clear); Urine Urobilinogen Normal (Normal)
[2024-11-15 13:43] LABS: Red Blood Cells-Urine 0 SEEN /hpf (0-5); Squamous Epithelial Cells - UA 0-5 SEEN /hpf (5-10); White Blood Cells 0-5 SEEN /hpf (0-5)
== END 2024-11-15 14:08 | disposition home or self-care (01) ==
PROVIDERS: Emergency Provider Emergency Medicine; PCP Internal Medicine; Visit Provider Emergency Medicine
DX: R53.1 Weakness (principal); E11.9 Type 2 diabetes mellitus without complications; I25.10 Atherosclerotic heart disease of native coronary artery without angina pectoris; I25.2 Old myocardial infarction; G47.33 Obstructive sleep apnea (adult) (pediatric); Z86.718 Personal history of other venous thrombosis and embolism; Z86.711 Personal history of pulmonary embolism; Z95.5 Presence of coronary angioplasty implant and graft
CPT/HCPCS: 36415; 71045; 80053; 81001; 85025; 87631; 96360; 99284; A4216

== ENCOUNTER → 2024-12-18 | Outpatient (CLI) | payer MEDICARE, OTHER, SELFPAY ==
[2024-11-25 10:01] VITALS: BMI 20.7
--- NOTE | 2024-12-18 15:00 | NEURO ---
NCS and/or EMG Patient Report Ordering Doctor: Jeannie Scanlon DATE OF SERVICE: 12/18/24 Gail presents with pain weakness and numbness in digits 2 through 4 of the right hand. Electrodiagnostic findings: Right median motor nerve demonstrates normal distal latency and amplitude with reduced conduction velocity. Normal right ulnar motor response. Normal median ulnar F?waves. Absent right median sensory latency at the wrist and palm. Normal ulnar and radial sensory sponsors. Needle EMG testing was performed the right upper limb. All muscles tested showed no evidence of denervation with normal motor unit action potentials. Electrodiagnostic impression: This is an abnormal study. 1. Electrodiagnostic findings are suggestive of right-sided median mononeuropathy. This is consistent with a moderate right carpal tunnel syndrome. Multi Select Codes Neurology Neurology Interp Codes: 15585-15 Musc test done w/n test comp (interp) and 45643-77 Nrv cndj test 7-8 studies (interp)
== END | disposition home or self-care (01) ==
LOC: PSN 13:17
PROVIDERS: PCP Internal Medicine
DX: M79.641 Pain in right hand (principal); R20.2 Paresthesia of skin
CPT/HCPCS: 95886; 95910

== ENCOUNTER 2025-02-19 10:30 | Outpatient (RCR) | payer MEDICARE, OTHER, SELFPAY ==
[2024-03-18 13:04] VITALS: BMI 20.7
--- NOTE | 2024-08-08 12:29 | HP.PTEVAL ---
Patient's Visit Information Visit Information Visit Information: BEN MAHARAJ is a 79 year old F referred to Physical Therapy by Galo Antonio PA-C with a diagnosis of PRESENCE OF ARTIFICIAL KNEE JOINT,BILATERAL. Date of Evaluation: 08/08/24 Physical Therapist: Darien Beasley, PT, Cert MDT, OCS Visit Plan Frequency: 2-3x /Week Duration: 4-6 Weeks Plan: S/P DEBRIDEMENT AND POLY EXCHANGE BILTERAL KNEES ON 04/07 AND 04/08 PT INTERVENTIONS ROM BLE KNEE ,STRENGTHENING EX'S QUADS/HAMS/HIP ,FUNCTIONAL STRENGTHENING ,BALANCE TRAINING AND ENDURANCE EX'S Subjective Subjective: This 79 y/o female presents to physical therapy with bilateral TKA . Patient developed infection in knees with bilateral knee poly exchange and irrigation debridement at [facility] April [address] Bolden. Patient was in [facility] for days and transferred to [facility] for Rehab and antibiotic infusion and D/C to home in May . Patient seen DR and recommended PT . Patient has multiple comorbities influences condition . Patient TKA 2004. Patient uses rollator . Patient lives alone Mobile home 2 steps with rails. Tub/shower set up . Patient able to bath dress and cooking. Patient had on fall slipped on ice. Patient denies paresthesia/tingling.Pateint sleeping okay Pain medications and blood thinner bruises easy SOCAIL: lives alone has boy friend VOCATION: RETIRED Pain Objective Objective: POTURE : mild forward posture hips/knees flexed GAIT: reciprocal pattern with rollator forward posture hips/knees flexed NEURO: denies paresthesia/tingling SKIN: ecchymosis ,thin skin BALANCE: Fair+ with rollator AROM: supine knee flexion 15 -110 degrees ,20 -120 degrees supine knee flexion MMT: ( peak force) quads left 11.6 ,right 12.8 ,hamstrings left 10.9 ,right 11.4 ,hip flexion right 12.8 ,left 11.9 FLEXABILITY: hamstrings min tight Balance/Special Test Scores Lower Extremity Functional Score: 21 Goals Goal 1:: Patient to be I with HEP for knees Goal Time Frame: 4-6 Weeks Goal 2:: Patient to improve AROM supine knee flexion 5 -120 degrees to improve stairs Goal Time Frame: 4-6 Weeks Goal 3:: Patient to improve peak force quads/hams/hip by 5-10 # to improve function. Goal Time Frame: 4-6 Weeks Goal 4:: Patient to improve LFES score by 5-10 points to improve function/QOL Goal Time Frame: 4-6 Weeks Goal 5:: Patient to improve TUG score by 15 sec < Goal Time Frame: 4-6 Weeks Rehabilitation Potential Physical Therapy Diagnosis: This patient underwent s/p debridement ploy exchange bilateral knee 04/08/24 with decrease ROM ,strength ,gait function and endurance thus benefit from skilled PT Rehabilitation Potential: Good Anticipated Interventions Patient/Client Instruction: Educate patient on: Condition and Plan of Care For the Purpose of:: To decrease pain, To increase ROM, To improve muscle performance and motor function, To improve ability to perform ADL's, To increase tolerance to activity/condition/position, To improve ability of physical actions for home/community/work/leisure, To improve gait and locomotor functions, To improve health of tissue, To decrease soft tissue restriction, To increase flexibility/ROM, To improve endurance, To improve balance, To improve safety with gait, To assume or resume ADL's and To reduce risk of recurrence Therapeutic Exercise to Include: Strength training, Endurance training, Balance training, Gait and locomotor training and Active ROM Comment: QUADS/HAMS/HIP For the Purpose of:: To decrease pain, To increase ROM, To improve muscle performance and motor function, To improve ability to perform ADL's, To increase tolerance to activity/condition/position, To improve performance and independence with ADL's, To improve ability of physical actions for home/community/work/leisure, To improve gait and locomotor functions, To improve health of tissue, To decrease soft tissue restriction, To increase flexibility/ROM, To improve endurance and To improve balance Text: Thank you for the opportunity to evaluate your patient. For Medicare and Medicare HMO plans, please review the plan of care and approve it. It will need to be FAXED BACK to us at [phone] for Medicare purposes. For Medicare only, by signing this I certify the plan of care. Please let me know if there are questions or concerns regarding this plan of care. Physician Signature: Date:
--- NOTE | 2024-08-08 12:29 | HP.PTEVAL ---
Patient's Visit Information Visit Information Visit Information: BEN MAHARAJ is a 79 year old F referred to Physical Therapy by Galo Antonio PA-C with a diagnosis of PRESENCE OF ARTIFICIAL KNEE JOINT,BILATERAL. Date of Evaluation: 08/08/24 Physical Therapist: Darien Beasley, PT, Cert MDT, OCS Visit Plan Frequency: 2-3x /Week Duration: 4-6 Weeks Plan: S/P DEBRIDEMENT AND POLY EXCHANGE BILTERAL KNEES ON 04/07 AND 04/08 PT INTERVENTIONS ROM BLE KNEE ,STRENGTHENING EX'S QUADS/HAMS/HIP ,FUNCTIONAL STRENGTHENING ,BALANCE TRAINING AND ENDURANCE EX'S Subjective Subjective: This 79 y/o female presents to physical therapy with bilateral TKA . Patient developed infection in knees with bilateral knee poly exchange and irrigation debridement at [facility] April [address] Bolden. Patient was in [facility] for days and transferred to [facility] for Rehab and antibiotic infusion and D/C to home in May . Patient seen DR and recommended PT . Patient has multiple comorbities influences condition . Patient TKA 2004. Patient uses rollator . Patient lives alone Mobile home 2 steps with rails. Tub/shower set up . Patient able to bath dress and cooking. Patient had on fall slipped on ice. Patient denies paresthesia/tingling.Pateint sleeping okay Pain medications and blood thinner bruises easy SOCAIL: lives alone has boy friend VOCATION: RETIRED Pain Objective Objective: POTURE : mild forward posture hips/knees flexed GAIT: reciprocal pattern with rollator forward posture hips/knees flexed NEURO: denies paresthesia/tingling SKIN: ecchymosis ,thin skin BALANCE: Fair+ with rollator AROM: supine knee flexion 15 -110 degrees ,20 -120 degrees supine knee flexion MMT: ( peak force) quads left 11.6 ,right 12.8 ,hamstrings left 10.9 ,right 11.4 ,hip flexion right 12.8 ,left 11.9 FLEXABILITY: hamstrings min tight Balance/Special Test Scores Lower Extremity Functional Score: 21 Goals Goal 1:: Patient to be I with HEP for knees Goal Time Frame: 4-6 Weeks Goal 2:: Patient to improve AROM supine knee flexion 5 -120 degrees to improve stairs Goal Time Frame: 4-6 Weeks Goal 3:: Patient to improve peak force quads/hams/hip by 5-10 # to improve function. Goal Time Frame: 4-6 Weeks Goal 4:: Patient to improve LFES score by 5-10 points to improve function/QOL Goal Time Frame: 4-6 Weeks Goal 5:: Patient to improve TUG score by 15 sec < Goal Time Frame: 4-6 Weeks Rehabilitation Potential Physical Therapy Diagnosis: This patient underwent s/p debridement ploy exchange bilateral knee 04/08/24 with decrease ROM ,strength ,gait function and endurance thus benefit from skilled PT Rehabilitation Potential: Good Anticipated Interventions Patient/Client Instruction: Educate patient on: Condition and Plan of Care For the Purpose of:: To decrease pain, To increase ROM, To improve muscle performance and motor function, To improve ability to perform ADL's, To increase tolerance to activity/condition/position, To improve ability of physical actions for home/community/work/leisure, To improve gait and locomotor functions, To improve health of tissue, To decrease soft tissue restriction, To increase flexibility/ROM, To improve endurance, To improve balance, To improve safety with gait, To assume or resume ADL's and To reduce risk of recurrence Therapeutic Exercise to Include: Strength training, Endurance training, Balance training, Gait and locomotor training and Active ROM Comment: QUADS/HAMS/HIP For the Purpose of:: To decrease pain, To increase ROM, To improve muscle performance and motor function, To improve ability to perform ADL's, To increase tolerance to activity/condition/position, To improve performance and independence with ADL's, To improve ability of physical actions for home/community/work/leisure, To improve gait and locomotor functions, To improve health of tissue, To decrease soft tissue restriction, To increase flexibility/ROM, To improve endurance and To improve balance Text: Thank you for the opportunity to evaluate your patient. For Medicare and Medicare HMO plans, please review the plan of care and approve it. It will need to be FAXED BACK to us at [phone] for Medicare purposes. For Medicare only, by signing this I certify the plan of care. Please let me know if there are questions or concerns regarding this plan of care. Physician Signature: Date:
--- NOTE | 2024-11-01 11:14 | HP.PTREVAL ---
Re-Evaluation Intro: Galo Antonio PA-C, It has been my pleasure to treat BEN MAHARAJ over the last 14 visits for PRESENCE OF ARTIFICIAL KNEE JOINT,BILATERAL. Please see the progress note below for an update on the physical therapy plan of care! Subjective Subjective: Patient sees DR Bolden next week Patient had Covid and was sick for 2 weeks. Feeling better overall walking better Objective Objective/Function: Patient will continue to benefit from skilled PT to improve function and increase strength patient has made progress with strength goals are appropriate and updated* POTURE : mild forward posture hips/knees flexed GAIT: reciprocal pattern with rollator forward posture hips/knees flexed NEURO: denies paresthesia/tingling SKIN: ecchymosis ,thin skin BALANCE: Fair+ with rollator AROM: supine knee flexion left 12 -110 degrees ,right 15-120 degrees supine knee flexion MMT: ( peak force) quads left 24.0 ,right 27.9 ,hamstrings left 20.1,right 17.4 ,hip flexion right 18.8 ,left 16.9 FLEXABILITY: hamstrings min tight Plan Plan Plan: S/P DEBRIDEMENT AND POLY EXCHANGE BILTERAL KNEES ON 04/07 AND 04/08 PT INTERVENTIONS ROM BLE KNEE ,STRENGTHENING EX'S QUADS/HAMS/HIP ,FUNCTIONAL STRENGTHENING ,BALANCE TRAINING AND ENDURANCE EX'S Balance/Gait/Functional tests Balance/Special Test Scores Lower Extremity Functional Score: 23 TUG Test Time Seconds: 23.3 Tug Test: 20-30sec.=variable mobility Goals Goals Goal 1:: Patient to be I with HEP for knees Goal Time Frame: 4-6 Weeks Goal Progress: Progressing Goal 2:: Patient to improve AROM supine knee flexion 5 -120 degrees to improve stairs Goal Time Frame: 4-6 Weeks Goal Progress: Progressing Goal 3:: Patient to improve peak force quads/hams/hip by 5-10 # to improve function.( new goa) Goal Time Frame: 4-6 Weeks Goal 4:: Patient to improve LFES score by 5-10 points to improve function/QOL Goal Time Frame: 4-6 Weeks Goal Progress: Progressing Goal 5:: Patient to improve TUG score by 15 sec < Goal Time Frame: 4-6 Weeks Goal Progress: Progressing Anticipated Interventions Anticipated Interventions Patient/Client Instruction: Educate patient on: Condition and Plan of Care For the Purpose of:: To decrease pain, To increase ROM, To improve muscle performance and motor function, To improve ability to perform ADL's, To increase tolerance to activity/condition/position, To improve ability of physical actions for home/community/work/leisure, To improve gait and locomotor functions, To improve health of tissue, To decrease soft tissue restriction, To increase flexibility/ROM, To improve endurance, To improve balance, To improve safety with gait, To assume or resume ADL's and To reduce risk of recurrence Therapeutic Exercise to Include: Strength training, Endurance training, Balance training, Gait and locomotor training and Active ROM Comment: QUADS/HAMS/HIP For the Purpose of:: To decrease pain, To increase ROM, To improve muscle performance and motor function, To improve ability to perform ADL's, To increase tolerance to activity/condition/position, To improve performance and independence with ADL's, To improve ability of physical actions for home/community/work/leisure, To improve gait and locomotor functions, To improve health of tissue, To decrease soft tissue restriction, To increase flexibility/ROM, To improve endurance and To improve balance Re-Evaluation Ending Re-evaluation ending: Please do not hesitate to contact me at [phone] by phone or if you have questions or concerns regarding this new plan of care! Sincerely, Darien Beasley, PT, Cert MDT, OCS
--- NOTE | 2024-11-27 10:02 | HP.PTREVAL ---
Re-Evaluation Intro: Galo Antonio PA-C, It has been my pleasure to treat BEN MAHARAJ over the last 19 visits for PRESENCE OF ARTIFICIAL KNEE JOINT,BILATERAL. Please see the progress note below for an update on the physical therapy plan of care! Subjective Subjective: Plan to see [facility] ,patient seen [facility] last time Discussed with needs order to Continue PT Patient been c/o ecchymosis in bilateral lower legs Skin thin Patient feels like getting stronger Objective Objective/Function: Patient will continue to benefit from skilled PT to improve function and increase strength patient has made progress with strength goals are appropriate and updated* POTURE : mild forward posture hips/knees flexed GAIT: reciprocal pattern with rollator forward posture hips/knees flexed NEURO: denies paresthesia/tingling SKIN: ecchymosis ,thin skin BALANCE: Fair+ with rollator AROM: supine knee flexion left 12 -110 degrees ,right 15-120 degrees supine knee flexion MMT: ( peak force) quads left 24.8 ,right 26.9 ,hamstrings left 22.1,right 17.8 ,hip flexion right 18.3 ,left 16.1 FLEXABILITY: hamstrings min tight Plan Plan Plan: S/P DEBRIDEMENT AND POLY EXCHANGE BILTERAL KNEES ON 04/07 AND 04/08 PT INTERVENTIONS ROM BLE KNEE ,STRENGTHENING EX'S QUADS/HAMS/HIP ,FUNCTIONAL STRENGTHENING ,BALANCE TRAINING AND ENDURANCE EX'S Balance/Gait/Functional tests Balance/Special Test Scores Lower Extremity Functional Score: 23 TUG Test Time Seconds: 23.3 Tug Test: 20-30sec.=variable mobility Goals Goals Goal 1:: Patient to be I with HEP for knees Goal Time Frame: 4-6 Weeks Goal Progress: Progressing Goal 2:: Patient to improve AROM supine knee flexion 5 -120 degrees to improve stairs Goal Time Frame: 4-6 Weeks Goal Progress: Progressing Goal 3:: Patient to improve peak force quads/hams/hip by 5-10 # to improve function.( new goa) Goal Time Frame: 4-6 Weeks Goal 4:: Patient to improve LFES score by 5-10 points to improve function/QOL Goal Time Frame: 4-6 Weeks Goal Progress: Progressing Goal 5:: Patient to improve TUG score by 15 sec < Goal Time Frame: 4-6 Weeks Goal Progress: Progressing Anticipated Interventions Anticipated Interventions Patient/Client Instruction: Educate patient on: Condition and Plan of Care For the Purpose of:: To decrease pain, To increase ROM, To improve muscle performance and motor function, To improve ability to perform ADL's, To increase tolerance to activity/condition/position, To improve ability of physical actions for home/community/work/leisure, To improve gait and locomotor functions, To improve health of tissue, To decrease soft tissue restriction, To increase flexibility/ROM, To improve endurance, To improve balance, To improve safety with gait, To assume or resume ADL's and To reduce risk of recurrence Therapeutic Exercise to Include: Strength training, Endurance training, Balance training, Gait and locomotor training and Active ROM Comment: QUADS/HAMS/HIP For the Purpose of:: To decrease pain, To increase ROM, To improve muscle performance and motor function, To improve ability to perform ADL's, To increase tolerance to activity/condition/position, To improve performance and independence with ADL's, To improve ability of physical actions for home/community/work/leisure, To improve gait and locomotor functions, To improve health of tissue, To decrease soft tissue restriction, To increase flexibility/ROM, To improve endurance and To improve balance Re-Evaluation Ending Re-evaluation ending: Please do not hesitate to contact me at [phone] by phone or if you have questions or concerns regarding this new plan of care! Sincerely, Darien Beasley, PT, Cert MDT, OCS
--- NOTE | 2025-01-20 10:41 | HP.PTREVAL ---
Re-Evaluation Intro: Galo Antonio PA-C, It has been my pleasure to treat BEN MAHARAJ over the last 32 visits for PRESENCE OF ARTIFICIAL KNEE JOINT,BILATERAL. Please see the progress note below for an update on the physical therapy plan of care! Subjective Subjective: Got a order to continue with PT Patient has been walking longer distances Objective Objective/Function: Patient will continue to benefit from skilled PT to improve function and increase strength patient has made progress with strength goals are appropriate and updated* POTURE : mild forward posture hips/knees flexed GAIT: reciprocal pattern with rollator forward posture hips/knees flexed NEURO: denies paresthesia/tingling SKIN: ecchymosis ,thin skin BALANCE: Fair+ with rollator AROM: supine knee flexion left 12 -110 degrees ,right 15-120 degrees supine knee flexion MMT: ( peak force) quads left 34.8 ,right 36.9 ,hamstrings left 28.1,right 27.8 ,hip flexion right 40.5 ,left 36.1 FLEXABILITY: hamstrings min tight Plan Plan Plan: GOAL PROGRESS TO MACHINES S/P DEBRIDEMENT AND POLY EXCHANGE BILTERAL KNEES ON 04/07 AND 04/08 PT INTERVENTIONS ROM BLE KNEE ,STRENGTHENING EX'S QUADS/HAMS/HIP ,FUNCTIONAL STRENGTHENING ,BALANCE TRAINING AND ENDURANCE EX'S Balance/Gait/Functional tests Balance/Special Test Scores Lower Extremity Functional Score: 23 TUG Test Time Seconds: 23.3 Tug Test: 20-30sec.=variable mobility Goals Goals Goal 1:: Patient to be I with HEP for knees Goal Time Frame: 4-6 Weeks Goal Progress: Progressing Goal 2:: Patient to improve AROM supine knee flexion 5 -120 degrees to improve stairs Goal Time Frame: 4-6 Weeks Goal Progress: Progressing Goal 3:: Patient to improve peak force quads/hams/hip by 5-10 # to improve function.( new goaL) Goal Time Frame: 4-6 Weeks Goal 4:: Patient to improve LFES score by 5-10 points to improve function/QOL Goal Time Frame: 4-6 Weeks Goal Progress: Progressing Goal 5:: Patient to improve TUG score by 15 sec < Goal Time Frame: 4-6 Weeks Goal Progress: Progressing Anticipated Interventions Anticipated Interventions Patient/Client Instruction: Educate patient on: Condition and Plan of Care For the Purpose of:: To decrease pain, To increase ROM, To improve muscle performance and motor function, To improve ability to perform ADL's, To increase tolerance to activity/condition/position, To improve ability of physical actions for home/community/work/leisure, To improve gait and locomotor functions, To improve health of tissue, To decrease soft tissue restriction, To increase flexibility/ROM, To improve endurance, To improve balance, To improve safety with gait, To assume or resume ADL's and To reduce risk of recurrence Therapeutic Exercise to Include: Strength training, Endurance training, Balance training, Gait and locomotor training and Active ROM Comment: QUADS/HAMS/HIP For the Purpose of:: To decrease pain, To increase ROM, To improve muscle performance and motor function, To improve ability to perform ADL's, To increase tolerance to activity/condition/position, To improve performance and independence with ADL's, To improve ability of physical actions for home/community/work/leisure, To improve gait and locomotor functions, To improve health of tissue, To decrease soft tissue restriction, To increase flexibility/ROM, To improve endurance and To improve balance Re-Evaluation Ending Re-evaluation ending: Please do not hesitate to contact me at [phone] by phone or if you have questions or concerns regarding this new plan of care! Sincerely, Darien Beasley, PT, Cert MDT, OCS
--- NOTE | 2025-02-19 11:20 | HP.PTDCSUM ---
Discharge Summary D/C summary: It has been my pleasure to treat BEN MAHARAJ referred by Galo Antonio PA-C, with the diagnosis of PRESENCE OF ARTIFICIAL KNEE JOINT,BILATERAL for a total of 36 visit(s). Discharge Date: 02/19/25 Please see the following information for a summary of their discharge status. Subjective Subjective: Doing good ready for d/c Pain B knees: Pain Intensity (Out of 10): 4 Overall Improvement % Improvement: 65 Objective Objective/Function: POTURE : mild forward posture hips/knees flexed GAIT: reciprocal pattern with rollator forward posture hips/knees flexed NEURO: denies paresthesia/tingling SKIN: ecchymosis ,thin skin BALANCE: Fair+ with rollator AROM: supine knee flexion left 12 -112 degrees ,right 15-120 degrees supine knee flexion MMT: ( peak force) quads left 34.8 ,right 36.9 ,hamstrings left 28.1,right 27.8 ,hip flexion right 40.5 ,left 36.1 FLEXABILITY: hamstrings min tight Goals Goal 1:: Patient to be I with HEP for knees Goal Progress: Goal Met Goal 2:: Patient to improve AROM supine knee flexion 5 -120 degrees to improve stairs Goal Progress: Goal Met Goal 3:: Patient to improve peak force quads/hams/hip by 5-10 # to improve function.( new goaL) Goal Progress: Goal Met Goal 4:: Patient to improve LFES score by 5-10 points to improve function/QOL Goal Progress: Goal Met Goal 5:: Patient to improve TUG score by 15 sec < Goal Progress: Goal Met Plan Plan: D/C TO HEP D/C Information Discharge Comments: HEP d/c sentence: If there are questions or concerns regarding this patient's physical therapy, please feel free to call me at [phone]. Thank you for the referral of this patient. Sincerely, Darien Beasley, PT, Cert MDT, OCS Balance/Gait/Functional tests Balance/Special Test Scores Lower Extremity Functional Score: 37 TUG Test Time Seconds: 23.3 Tug Test: 20-30sec.=variable mobility Improvement % Improvement: 65
== END 2025-02-19 19:00 | disposition home or self-care (01) ==
LOC: PT 10:30
PROVIDERS: PCP Internal Medicine; Visit Provider Physician Assistant Surgical
DX: Z96.653 Presence of artificial knee joint, bilateral (principal)
CPT/HCPCS: 97110; 97162; 97530

== ENCOUNTER 2025-04-16 09:20 | Outpatient (CLI) | payer MEDICARE, OTHER, SELFPAY ==
[2024-11-25 10:01] VITALS: BMI 20.7
[2025-04-16 10:39] LABS: Hematocrit 42.4 % (37-47); Hemoglobin 13.4 g/dL (12.0-15.0); Immature Granulocytes Count 0.020 X10^3/uL (0.0-0.0); Immature Reticulocyte Fraction 10.80 % (3.00-15.90); Mean Corp Hgb Conc 31.6 g/dL (32-36); Mean Corpuscular Volume 100.0 fL (81-99); Mean Platelet Vol. 10.5 fl (6.2-12.0); NRBC Flagged by Analyzer 0 % (0-5); Platelet Count 212 K/mm3 (150-450); RBC Distribution Width CV 13.9 % (11.6-14.6); RBC Distribution Width SD 50.5 fl (35.1-43.9); Red Blood Count 4.24 M/mm3 (4.2-5.4); Reticulocyte Count 2.08 % (0.5-1.5); White Blood Count 6.5 K/mm3 (4.4-11.0)
[2025-04-16 11:20] LABS: AST(SGOT) 21 U/L (<=31); Alanine Aminotransfer ALT/SGPT 18 U/L (<=34); Albumin, Serum 3.7 g/dL (3.4-4.8); Alkaline Phosphatase 63 U/L (35-104); Anion Gap 9 (5-15); BUN 28 mg/dL (4-19); BUN/Creat Ratio 28.1 RATIO (10-20); Calcium,Total 9.2 mg/dL (7.6-11.0); Carbon Dioxide 29.4 mmol/L (21.0-32.0); Chloride 102 mmol/L (98-108); Ferritin 101 ng/mL (22-378); Globulin 2.4 g/dL (2.2-4.2); Glucose 104 mg/dL (70-99); Iron 86 ug/dL (50-170); Iron Binding Capacity,Unsat 136 ug/dL (228-428); Potassium 4.7 mmol/L (3.3-5.1); Vitamin D,25 Hydroxy 113.0 ng/mL (30-100)
[2025-04-16 11:41] LABS: Iron Binding Capacity,Total 222 ug/dL (250-450)
== END 2025-04-16 23:59 | disposition home or self-care (01) ==
LOC: MTLAB 09:21
PROVIDERS: Internal Medicine Hematology & Oncology; PCP Internal Medicine; Referring Provider Internal Medicine; Visit Provider Internal Medicine
DX: D64.9 Anemia, unspecified (principal); E11.9 Type 2 diabetes mellitus without complications; E55.9 Vitamin D deficiency, unspecified; F32.A Depression, unspecified; F41.9 Anxiety disorder, unspecified
CPT/HCPCS: 36415; 80053; 82306; 82728; 83540; 83550; 84439; 84443; 85025; 85045

== ENCOUNTER 2025-04-20 08:44 | Inpatient (IN) | payer MEDICARE, OTHER, SELFPAY ==
[2024-11-25 10:01] VITALS: BMI 20.7
[2025-04-20] VITALS (10 sets, daily range): BP systolic 114–158; BP diastolic 69–92; PULSE 54–69; RESP 11–19; TEMP 36.4–36.7; O2SAT 96–100; BMI 21.2
--- NOTE | 2025-04-20 09:07 | RAD_ITS ---
PROCEDURE: CHEST PA AND LATERAL 04/20/2025 REASON FOR EXAM: CHEST PAIN TECHNIQUE: CHEST PA AND LATERAL COMPARISON: Chest x-ray 11/15/2024. FINDINGS: Hardware: Monitor electrodes overlie the chest. Heart: No cardiomegaly. Mediastinum: Unremarkable. Lungs: Retrocardiac airspace opacity with obliteration of the costophrenic angle can be consistent with pneumonia with small pleural effusion. No pneumothorax. Bones: No acute bony abnormality. Status post ACDF. RAD/Chest PA and Lateral IMPRESSION: Retrocardiac airspace opacity with obliteration of the costophrenic angle can b e consistent with pneumonia with small pleural effusion. Reading Location: [id number]
--- NOTE | 2025-04-20 09:07 | EKG12_ITS ---
Test Reason : CP Blood Pressure : */* mmHG Vent. Rate : 54 BPM Atrial Rate : * BPM P-R Int : * ms QRS Dur : 72 ms QT Int : 506 ms P-R-T Axes : * -21 66 degrees QTcB Int : 479 ms Sinus bradycardia Low voltage QRS Inferior infarct , age undetermined Cannot rule out Anteroseptal infarct , age undetermined Abnormal ECG Confirmed by LISANDRA ARAGON, PINEDA ([id number]), technical editor MILVIA MCLEAN ([id number]) on 04/22/2025 6:10:38 AM Referred By: OSMEL Confirmed By: PINEDA RFY MD
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
[2025-04-20 09:19] LABS: Base Excess 2 mmol/L (-2 to +2); FI02 2.0; PO2 91 mmHG (75-100); SITE L Brach; SO2 96 % (95-99)
[2025-04-20 09:26] LABS: Hematocrit 45.2 % (37-47); Hemoglobin 14.7 g/dL (12.0-15.0); Immature Granulocytes Count 0.030 X10^3/uL (0.0-0.0); Mean Corp Hgb Conc 32.5 g/dL (32-36); Mean Corpuscular Volume 97.4 fL (81-99); Mean Platelet Vol. 10.4 fl (6.2-12.0); NRBC Flagged by Analyzer 0 % (0-5); Platelet Count 232 K/mm3 (150-450); RBC Distribution Width CV 13.9 % (11.6-14.6); RBC Distribution Width SD 50.2 fl (35.1-43.9); Red Blood Count 4.64 M/mm3 (4.2-5.4); White Blood Count 10.4 K/mm3 (4.4-11.0)
[2025-04-20 09:41] LABS: Troponin T High Sensitivity 46 ng/L (<=14)
[2025-04-20 09:43] LABS: Anion Gap 14 (5-15); BUN 39 mg/dL (4-19); BUN/Creat Ratio 18.0 RATIO (10-20); Calcium,Total 9.0 mg/dL (7.6-11.0); Carbon Dioxide 24.4 mmol/L (21.0-32.0); Chloride 99 mmol/L (98-108); Estimated Creatinine Clearance 16.82 ml/min (50-250); Glucose 136 mg/dL (70-99); Potassium 3.8 mmol/L (3.3-5.1)
[2025-04-20 09:52] LABS: Mucous, Urine 0 SEEN /hpf (<or=2+); Red Blood Cells-Urine 0 SEEN /hpf (0-5)
[2025-04-20 09:55] LABS: Color, Urine Yellow (Yellow); Glucose, Dipstick Normal (Normal); Ketone-Dipstick 5 mg/dl (Negative); Leukocyte Esterase-Dipstick 500 /ul (Negative); Nitrite-Dipstick Negative (Negative); Occult Blood-Urine 10 /ul (Negative); Protein-Dipstick 30 mg/dl (Negative); Specific Gravity, Urine 1.025 (1.002-1.030); Urine Bilirubin Dipstick 3 mg/dL (Negative)
[2025-04-20 10:03] LABS: Squamous Epithelial Cells - UA 0-5 SEEN /hpf (5-10)
[2025-04-20] MEDS: 0.9% Normal Saline (1000mL) 1,000 ML 1000 ML IV (10:38)
[2025-04-20 11:10] LABS: SITE Not entered; VBG BASE EXCESS 7 mmol/L (-1.0-3.5); VBG PO2 37 mmHg (25-40); VBG SO2 65 % (50-70); VBG TCO2 35 mmol/L (23-33)
[2025-04-20] MEDS: Azithromycin 500 MG in 0.9% Normal Saline (250mL Bag) 250 ML 250 MG IV (11:31)
[2025-04-20 11:36] LABS: Troponin T High Sens 2 HR 48 ng/L (<=14)
[2025-04-20] MEDS: 0.9% Normal Saline (1000mL) 1,000 ML 100 ML IV (13:55)
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
[2025-04-20] MEDS: 0.9% Saline Lock 10 ML Syringe IV (16:51)
[2025-04-20] MEDS: Heparin Injection (Vial) 5,000 UNIT/ML VIAL 5000 UNIT SC (21:23)
[2025-04-21] MEDS: 0.9% Normal Saline (1000mL) 1,000 ML 100 ML IV
[2025-04-21 05:51] VITALS: BP 176/71; PULSE 54; RESP 16; O2SAT 98
[2025-04-21 06:01] LABS: Anion Gap 10 (5-15); BUN 26 mg/dL (4-19); BUN/Creat Ratio 28.2 RATIO (10-20); Calcium,Total 8.0 mg/dL (7.6-11.0); Carbon Dioxide 23.5 mmol/L (21.0-32.0); Chloride 108 mmol/L (98-108); Estimated Creatinine Clearance 39.67 ml/min (50-250); Glucose 94 mg/dL (70-99); Potassium 3.4 mmol/L (3.3-5.1)
[2025-04-21] MEDS: Aspirin E.C. 81 MG Tablet PO (08:16)
[2025-04-21] MEDS: Ergocalciferol 1.25 MG (50, 000 UNIT) Capsule PO (08:18)
[2025-04-21] MEDS: Heparin Injection (Vial) 5,000 UNIT/ML VIAL 5000 UNIT SC (08:18)
[2025-04-21 08:31] VITALS: BP 176/82; PULSE 62; RESP 16; TEMP 36.2; O2SAT 99
[2025-04-21 09:30] VITALS: O2SAT 96
[2025-04-21 09:44] VITALS: O2SAT 100; O2SAT 95
[2025-04-21 09:49] VITALS: O2SAT 95
[2025-04-21] MEDS: Azithromycin 500 MG in 0.9% Normal Saline (250mL Bag) 250 ML 250 MG IV (10:04)
--- NOTE | 2025-04-21 10:53 | PCM.DC ---
Discharge Instructions DC O2, CPAP, BIPAP needs Home O2 Discharge instructions: No Dressing / Incision Discharge Activity: Return to Normal Activity Weight Bearing Status: Full weight bearing Follow Up Care Test Results: Test results from this visit will be discussed in further detail at your follow-up appointment, if applicable. Discharge Plan Admission Admit Date/Time: 04/20/25 11:11 Primary Reason for Your Visit: pneumonia, acute kidney injury Attending Provider: Ernie Friend Primary Care Provider: Freeman Angel Instructions Additional Instructions / Restrictions: keep up with fluids at home-6-8 glasses of liquid a day Discharge Orders/Prescriptions Prescriptions: New levofloxacin 500 mg tablet 500 mg PO DAILY Qty: 7 0RF Rx Instructions: start on 04/22/25 Continued (DME) 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 See Rx Instructions .Route .MEDSUPPLY Qty: 1 0RF Rx Instructions: Wear at night. acetaminophen 500 mg tablet 1,000 mg PO Q8 PRN (Reason: fever or pain) Rx Instructions: Acetaminophen 1 g every 8 hourly for 1 week and then every 8 hourly as needed needed for severe pain (DME) Ultra-Light Rollator Misc See Rx Instructions .Route Qty: 1 0RF Rx Instructions: As directed lisinopril 5 mg tablet 5 mg PO QDAY magnesium glycinate 100 mg tablet 100 mg PO QDAY metformin 500 mg tablet extended release 24 hr 500 mg PO QDAY potassium chloride 20 mEq tablet extended release 20 meq PO QDAY aspirin [Adult Aspirin Regimen] 81 mg tablet,delayed release (DR/EC) 81 mg PO DAILY Qty: 1 0RF duloxetine 30 mg capsule,delayed release(DR/EC) 30 mg PO QHS Qty: 30 7RF duloxetine 60 mg capsule,delayed release(DR/EC) 60 mg PO QAM Qty: 30 7RF omeprazole 40 mg capsule,delayed release(DR/EC) 40 mg PO QDAY Qty: 90 1RF Rx Instructions: Take 30 minutes before breakfast gabapentin 300 mg capsule 300 mg PO BID magnesium oxide 250 mg magnesium tablet 250 mg PO TID magnesium oxide 250 mg magnesium tablet 250 mg PO TID diphenhydramine HCl 25 mg tablet 25 mg PO QHS cholecalciferol (vitamin D3) 125 mcg (5,000 unit) capsule 125 mcg PO DAILY Probiotic Digestive Care 20 billion cell capsule PO mecobalamin (vitamin B12) 1,000 mcg lozenge 1,000 mcg PO DAILY Rx Instructions: allow to dissolve in mouth OR may chew lightly before swallowing arginine (L-arginine) 500 mg tablet 500 mg PO DAILY Rx Instructions: administer after a meal vitamins-lipotropics Tablet 1 tab PO DAILY methadone 10 mg tablet 10 mg PO Q8H PRN (Reason: pain) fluticasone propionate 50 mcg/actuation spray,suspension 2 spray INTRANASAL DAILY PRN (Reason: allergy symptoms) sennosides-docusate sodium [Stimulant Laxative Plus] 8.6-50 mg Tablet 2 tab PO BID Qty: 0 0RF baclofen 10 mg Tablet 5 mg PO TID PRN (Reason: muscle spasm) Qty: 0 0RF bisacodyl 10 mg Suppository 10 mg NE DAILY PRN (Reason: Severe constipation) Qty: 0 0RF cholecalciferol (vitamin D3) 1,250 mcg (50,000 unit) capsule 1,250 mcg PO QWEEK Qty: 20 1RF carvedilol 6.25 mg tablet 6.25 mg PO BID Qty: 180 3RF Rx Instructions: must administer with a meal/food Discontinued doxycycline hyclate 100 mg capsule 100 mg PO BID Referrals / Follow Up: Freeman Angel MD [Primary Care Provider] - Within 1 Week (you will need to have another chest x-ray ordered) Disposition Disposition (needs filled in before D/C Order can be placed): Home, Self Care
--- NOTE | 2025-04-21 11:03 | CASEMGMT ---
Addendum entered by Va Duffy 04/21/25 11:25: Pt did not qualify for home oxygen. Original Note: INDRA CAMERON Assessment: Face to Face with pt for initial transition planning/care coordination assessment. INDRA CAMERON introduced self and role at [facility], pt voices understanding and consents to assessment. Pt is A&O x4 and answers all questions appropriately at this time. Pt sitting up in chair in no distress. Care providers, pharmacy, and demographics verified/updated. Admitting Dx: pneumonia, CARLOTA Strata Score: 3 PCP:[facility] Specialists:Zulma, cardio; Ina, neuro; Pan, pain mgmt; Ana Lilia, pod; Kimi, ortho; Vellanki, rheum; Suhas, ENT; Viki, ID [facility]: yes LNOK: Rj Hartley, sig other Living Arrangements: Pt lives alone in a mobile home with 2 steps to enter with a rail. Pt reports she is I in ADLs as she sponge bathes. States sig other takes her to grocery store and she uses a cart while shopping. Pt denies concerns at home. Transportation: Pt has not been driving since surgery. Pt sig other provides transportation. DME:walker in every car, BGM with sufficient strips and lancets, pox, cane, raised toilet seat, shower chair HHC/SNF: Denies hx of [facility], W recently Pt states no concerns with going home at time of dc. Pt states she was to start OP therapy at [facility] today. She states her sig other cancelled it and she will reschedule once home. Pt already has order for this. Pt states no further concerns/needs. CM to follow. Advised pt to ask CM if any further questions/concerns/needs arise, voices understanding. Pt Goal: Home with OP therapy Plan: Home with OP therapy previously ordered. Fred BURRELL CM
--- NOTE | 2025-04-21 11:03 | DS.PCM_ITS ---
Providers Date of Admission: 04/20/25 Date of Discharge: 04/21/25 Primary Care Physician: Dr. Freeman Angel MD Reason For Visit: PNEUMONIA, ACUTE KIDNEY INJURY Diagnosis Discharge Diagnosis (1) Pneumonia: Status: Acute Code(s): J18.9 - Pneumonia, unspecified organism Plan 1. Community-acquired pneumonia-patient was admitted to [facility], she will continue IV Zithromax and Rocephin #2 acute kidney injury-patient will be given IV fluids and labs will be rechecked tomorrow #3 type 2 diabetes-patient takes metformin at home, I do not feel that she needs fingerstick blood sugars during her hospitalization here, she will remain on metformin #4 coronary artery disease-patient takes a baby aspirin daily, she does not take a statin #5 chronic depression-patient is on Cymbalta #6 chronic pain secondary to osteoarthritis-patient takes gabapentin Total clinical time spent by myself addressing the patient's medical issues, reviewing all of her data, and collaborating with patient's care team: 55 minutes Medications at Discharge Home Medications 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 #1 ea 06/29/21 methadone 10 mg tablet 10 mg PO Q8H PRN pain 02/20/24 fluticasone propionate 50 mcg/actuation nasal spray,suspension 2 spray intranasal DAILY PRN allergy symptoms 02/28/24 baclofen 10 mg tablet 5 mg (1/2 x 10 mg) PO TID PRN muscle spasm #0 tabs 04/12/24 bisacodyl 10 mg rectal suppository 10 mg GA DAILY PRN Severe constipation #0 ea 04/12/24 sennosides 8.6 mg-docusate sodium 50 mg tablet (Stimulant Laxative Plus) 2 tab PO BID #0 tabs 04/12/24 acetaminophen 500 mg tablet 1,000 mg PO Q8 PRN fever or pain 09/10/24 cholecalciferol (vitamin D3) 1,250 mcg (50,000 unit) capsule 1,250 mcg PO QWEEK #20 caps 11/04/24 walker (Ultra-Light Rollator misc) #1 ea 11/04/24 aspirin 81 mg tablet,delayed release (Adult Aspirin Regimen) 81 mg PO DAILY #1 TAB 12/04/24 lisinopril 5 mg tablet 5 mg PO QDAY 12/04/24 magnesium glycinate 100 mg (as glycinate) tablet 100 mg PO QDAY 12/04/24 metformin 500 mg tablet,extended release 24 hr 500 mg PO QDAY diabetes 12/04/24 potassium chloride 20 mEq tablet,extended release 20 meq PO QDAY supplement 12/04/24 carvedilol 6.25 mg tablet 6.25 mg PO BID This is a dose increase #180 tabs 01/06/25 duloxetine 30 mg capsule,delayed release 30 mg PO QHS #30 caps 03/24/25 duloxetine 60 mg capsule,delayed release 60 mg PO QAM #30 caps 03/24/25 omeprazole 40 mg capsule,delayed release 40 mg PO QDAY #90 caps 04/10/25 Lactobacillus rhamnosus GG 20 billion cell capsule (Probiotic Digestive Care) cell PO digestion 04/20/25 arginine (L-arginine) 500 mg tablet 500 mg PO DAILY supplement 04/20/25 cholecalciferol (vitamin D3) 125 mcg (5,000 unit) capsule 125 mcg PO DAILY supplement 04/20/25 diphenhydramine HCl 25 mg tablet 25 mg PO QHS sleep 04/20/25 gabapentin 300 mg capsule 300 mg PO BID nerve pain/anxiety 04/20/25 magnesium oxide 250 mg PO TID supplement 04/20/25 magnesium oxide 250 mg PO TID supplement 04/20/25 mecobalamin (vitamin B12) 1,000 mcg lozenges 1,000 mcg PO DAILY supplement 04/20/25 vitamins-lipotropics tablet 1 tab PO DAILY ear ringing 04/20/25 levofloxacin 500 mg tablet 500 mg PO DAILY #7 tabs 04/21/25 Hospital Course Operations None Procedures None Summary of Care Provided Minutes Spent on Discharge: 31 Hospital Course: This 79-year-old white female presented to the emergency room at [facility] with complaints of chest pain and shortness of breath, patient was a poor informant and she could not describe what her chest pain felt like. Patient denied any fever or chills and denied any cough workup in the emergency room included labs which revealed normal white blood cell count hemoglobin was normal chemistry profile was remarkable for a BUN of 39 and creatinine of 2.17, urinalysis showed +1 bacteria and 5-10 WBCs patient initial troponin was 46 follow-up troponin 2 hours was 48 chest x-ray is obtained showed evidence of retrocardiac airspace opacity concerning for pneumonia. Patient was given IV antibiotics in the emergency room and she was admitted to [place] [id number] for acute kidney injury and pneumonia. She was given IV fluids and IV antibiotics were continued, the following day her creatinine was in the normal range and patient did not require any oxygen throughout her hospital stay. On 04/21/2025, patient was seen and examined: On examination she appeared in good health and spirits, she does not appear to be in any distress. Vital signs as documented. Skin warm and dry and without overt rashes. Neck without JVD, thyroid appears normal, trachea is midline, neck is supple. Lungs clear, normal air movement was noted. Heart exam notable for regular rhythm, normal sounds and absence of murmurs, rubs or gallops. Abdomen unremarkable and without evidence of organomegaly, masses, or abdominal aortic enlargement, bowel sounds are present in all 4 quadrants, no abdominal tenderness was noted. Extremities nonedematous, no cyanosis was noted, no clubbing was noted. Neuro: Cranial nerves II through XII are grossly intact, no focal motor deficits were noted, sensation to light touch and pinprick is intact, motor exam 5/5 throughout. Psych: Patient is alert and oriented x3, she does not appear anxious or depressed, she does not appear agitated. Patient was felt to be stable for discharge home on 04/21/2025. Weight / BMI Weight Weight: 54.3 kg Body Mass Index (BMI) 21.2 ABG / Lab / Microbiology Data 04/20/25 09:10 04/21/25 04:49 Laboratory: Laboratory Results - last 24 hr 04/20/25 11:10: Troponin T Hi Sens 2 Hr 48 H 04/20/25 12:45: POC Glucose 84 04/21/25 04:49: Sodium 142, Potassium 3.4, Chloride 108, Carbon Dioxide 23.5, Anion Gap 10, BUN 26 H, Creatinine 0.92, Estim Creat Clear Calc 39.67 L, Est GFR (MDRD) Non-Af 63, BUN/Creatinine Ratio 28.2 H, Glucose 94, Calcium 8.0 ABG: ABG 04/20/25 11:05 Specimen Type SHAWN Sample Site Not entered VBG pH 7.34 VBG pO2 37 VBG HCO3 33 H VBG Total CO2 35 H VBG O2 Sat (Calc) 65 VBG Base Excess 7 H POC Mix VBG pCO2 Pt Tmp 61.6 H O2 Delivery Device Not entered D/C Instructions Weight Bearing Status: Full weight bearing DC O2, CPAP, BIPAP Needs Home O2 Discharge instructions: No Meaningful Use Info Meaningful Use Meaningful Use Diagnoses (Choose all that apply): None applicable Discharge Plan Admission Admit Date/Time: 04/20/25 11:11 Primary Reason for Your Visit: pneumonia, acute kidney injury Attending Provider: Ernie Friend Primary Care Provider: Freeman Angel Instructions Additional Instructions / Restrictions: keep up with fluids at home-6-8 glasses of liquid a day Discharge Orders/Prescriptions Prescriptions: New levofloxacin 500 mg tablet 500 mg PO DAILY Qty: 7 0RF Rx Instructions: start on 04/22/25 Continued (DME) 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 See Rx Instructions .Route .MEDSUPPLY Qty: 1 0RF Rx Instructions: Wear at night. acetaminophen 500 mg tablet 1,000 mg PO Q8 PRN (Reason: fever or pain) Rx Instructions: Acetaminophen 1 g every 8 hourly for 1 week and then every 8 hourly as needed needed for severe pain (DME) Ultra-Light Rollator Misc See Rx Instructions .Route Qty: 1 0RF Rx Instructions: As directed lisinopril 5 mg tablet 5 mg PO QDAY magnesium glycinate 100 mg tablet 100 mg PO QDAY metformin 500 mg tablet extended release 24 hr 500 mg PO QDAY potassium chloride 20 mEq tablet extended release 20 meq PO QDAY aspirin [Adult Aspirin Regimen] 81 mg tablet,delayed release (DR/EC) 81 mg PO DAILY Qty: 1 0RF duloxetine 30 mg capsule,delayed release(DR/EC) 30 mg PO QHS Qty: 30 7RF duloxetine 60 mg capsule,delayed release(DR/EC) 60 mg PO QAM Qty: 30 7RF omeprazole 40 mg capsule,delayed release(DR/EC) 40 mg PO QDAY Qty: 90 1RF Rx Instructions: Take 30 minutes before breakfast gabapentin 300 mg capsule 300 mg PO BID magnesium oxide 250 mg magnesium tablet 250 mg PO TID magnesium oxide 250 mg magnesium tablet 250 mg PO TID diphenhydramine HCl 25 mg tablet 25 mg PO QHS cholecalciferol (vitamin D3) 125 mcg (5,000 unit) capsule 125 mcg PO DAILY Probiotic Digestive Care 20 billion cell capsule PO mecobalamin (vitamin B12) 1,000 mcg lozenge 1,000 mcg PO DAILY Rx Instructions: allow to dissolve in mouth OR may chew lightly before swallowing arginine (L-arginine) 500 mg tablet 500 mg PO DAILY Rx Instructions: administer after a meal vitamins-lipotropics Tablet 1 tab PO DAILY methadone 10 mg tablet 10 mg PO Q8H PRN (Reason: pain) fluticasone propionate 50 mcg/actuation spray,suspension 2 spray INTRANASAL DAILY PRN (Reason: allergy symptoms) sennosides-docusate sodium [Stimulant Laxative Plus] 8.6-50 mg Tablet 2 tab PO BID Qty: 0 0RF baclofen 10 mg Tablet 5 mg PO TID PRN (Reason: muscle spasm) Qty: 0 0RF bisacodyl 10 mg Suppository 10 mg GA DAILY PRN (Reason: Severe constipation) Qty: 0 0RF cholecalciferol (vitamin D3) 1,250 mcg (50,000 unit) capsule 1,250 mcg PO QWEEK Qty: 20 1RF carvedilol 6.25 mg tablet 6.25 mg PO BID Qty: 180 3RF Rx Instructions: must administer with a meal/food Discontinued doxycycline hyclate 100 mg capsule 100 mg PO BID Referrals / Follow Up: Freeman Angel MD [Primary Care Provider] - Within 1 Week (you will need to have another chest x-ray ordered) Disposition Disposition (needs filled in before D/C Order can be placed): Home, Self Care Charges/Coding Visit Charges Inpatient E&M: 78460 Disch Hosp >30min
== END 2025-04-21 13:05 | disposition home or self-care (01) | DRG 194 ==
LOC: ED 11:07 → MS3 11:48
PROVIDERS: Admitting Provider Internal Medicine; Emergency Provider Student in an Organized Health Care Education/Training Program; PCP Internal Medicine; Visit Provider Internal Medicine
DX: J18.9 Pneumonia, unspecified organism (principal); N17.9 Acute kidney failure, unspecified; E11.9 Type 2 diabetes mellitus without complications; F32.A Depression, unspecified; M79.7 Fibromyalgia; I25.10 Atherosclerotic heart disease of native coronary artery without angina pectoris; E78.5 Hyperlipidemia, unspecified; K21.9 Gastro-esophageal reflux disease without esophagitis; Z86.711 Personal history of pulmonary embolism; Z95.5 Presence of coronary angioplasty implant and graft; Z79.82 Long term (current) use of aspirin; G89.4 Chronic pain syndrome; Z79.899 Other long term (current) drug therapy; Z79.84 Long term (current) use of oral hypoglycemic drugs; R41.82 Altered mental status, unspecified; Z90.710 Acquired absence of both cervix and uterus; Z86.718 Personal history of other venous thrombosis and embolism; Z90.49 Acquired absence of other specified parts of digestive tract; Z98.1 Arthrodesis status; Z96.653 Presence of artificial knee joint, bilateral
CPT/HCPCS: 36415; 36600; 71046; 80048; 81001; 82803; 82962; 84484; 85025; 93005; 97161; 97166; 99285; A4216

== ENCOUNTER 2025-04-24 13:34 | Emergency (ER) | payer MEDICARE, OTHER, SELFPAY ==
[2024-11-25 10:01] VITALS: BMI 20.7
[2025-04-24] VITALS (7 sets, daily range): BP systolic 148–169; BP diastolic 85–115; PULSE 77–104; RESP 12–19; TEMP 36.6–37; O2SAT 96–100; BMI 22.2
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
--- NOTE | 2025-04-24 14:15 | EKG12_ITS ---
Test Reason : GENERAL Blood Pressure : */* mmHG Vent. Rate : 89 BPM Atrial Rate : 89 BPM P-R Int : 170 ms QRS Dur : 80 ms QT Int : 606 ms P-R-T Axes : 38 -32 71 degrees QTcB Int : 737 ms Critical Test Result: Long QTc Sinus rhythm with Premature atrial complexes Left axis deviation Septal infarct Inferior infarct Abnormal ECG Confirmed by YADIRA ARAGON, MICAELA ([id number]), scientific editor JAZ VOGEL ([id number]) on 04/28/2025 6:37:05 AM Referred By: Confirmed By: MICAELA MAY MD
[2025-04-24 14:21] LABS: Hematocrit 47.4 % (37-47); Hemoglobin 15.8 g/dL (12.0-15.0); Immature Granulocytes Count 0.030 X10^3/uL (0.0-0.0); Mean Corp Hgb Conc 33.3 g/dL (32-36); Mean Corpuscular Volume 94.8 fL (81-99); Mean Platelet Vol. 10.2 fl (6.2-12.0); NRBC Flagged by Analyzer 0 % (0-5); Platelet Count 308 K/mm3 (150-450); RBC Distribution Width CV 13.5 % (11.6-14.6); RBC Distribution Width SD 47.2 fl (35.1-43.9); Red Blood Count 5.00 M/mm3 (4.2-5.4); White Blood Count 8.0 K/mm3 (4.4-11.0)
[2025-04-24] MEDS: 0.9% Normal Saline (1000mL) 1,000 ML 999 ML IV (14:27)
[2025-04-24 14:55] LABS: Mucous, Urine 0 SEEN /hpf (<or=2+)
[2025-04-24 15:07] LABS: Lipase 10 U/L (13-75)
[2025-04-24 15:12] LABS: Color, Urine Yellow (Yellow); Glucose, Dipstick 250 mg/dl (Normal); Ketone-Dipstick Negative (Negative); Leukocyte Esterase-Dipstick 25 /ul (Negative); Nitrite-Dipstick Negative (Negative); Occult Blood-Urine Negative /ul (Negative); Protein-Dipstick 30 mg/dl (Negative); Specific Gravity, Urine 1.015 (1.002-1.030); Urine Bilirubin Dipstick Negative (Negative)
[2025-04-24 15:30] LABS: AST(SGOT) 36 U/L (<=31); Alanine Aminotransfer ALT/SGPT 26 U/L (<=34); Albumin, Serum 4.7 g/dL (3.4-4.8); Alkaline Phosphatase 79 U/L (35-104); Anion Gap 16 (5-15); BUN 8 mg/dL (4-19); BUN/Creat Ratio 10.4 RATIO (10-20); Calcium,Total 9.8 mg/dL (7.6-11.0); Carbon Dioxide 29.9 mmol/L (21.0-32.0); Chloride 95 mmol/L (98-108); Estimated Creatinine Clearance 45.62 ml/min (50-250); Globulin 3.6 g/dL (2.2-4.2); Glucose 133 mg/dL (70-99); Potassium 3.4 mmol/L (3.3-5.1)
--- NOTE | 2025-04-24 15:40 | RAD_ITS ---
PROCEDURE: ACUTE ABDOMEN INC CHEST 04/24/2025 REASON FOR EXAM: PAIN, VOMITING, CHECK PROGRESSION OF PNEUMONIA TECHNIQUE: Three-view ACUTE ABDOMEN series including AP upright CHEST COMPARISON: Chest x-ray 04/20/2025. RAD/Acute Abdomen Inc Chest IMPRESSION: Prior lower cervical surgery is again partially visualized. No interval osseous change is seen. Prior distal left clavicle fracture again noted. Prior lumbar surgery again noted. Bilateral hip prostheses are partially visualized, without apparent complicatio n. Moderate degenerative changes of the spine along with DISH noted. The cardiomediastinal silhouette is stable with mild cardiomegaly again present . Lungs are hypoinflated, but are likely clear of acute disease. No pleural effusion or pneumothorax is noted. No evidence of pneumoperitoneum. A moderate stool burden is noted. The bowel-gas pattern is otherwise unremarka ble. Reading Location: [place] [address]
[2025-04-24 16:18] LABS: Red Blood Cells-Urine 0-5 SEEN /hpf (0-5); Squamous Epithelial Cells - UA 0-5 SEEN /hpf (5-10); Transitional Epithelial - Ur 0-5 SEEN /hpf (0-5)
[2025-04-24 16:34] LABS: Troponin T High Sensitivity 36 ng/L (<=14)
[2025-04-24 17:00] LABS: Troponin T High Sens 2 HR 27 ng/L (<=14)
== END 2025-04-24 17:25 | disposition home or self-care (01) ==
PROVIDERS: Emergency Provider Emergency Medicine; PCP Internal Medicine; Visit Provider Emergency Medicine
DX: R11.2 Nausea with vomiting, unspecified (principal); E11.9 Type 2 diabetes mellitus without complications; I10 Essential (primary) hypertension; R07.9 Chest pain, unspecified; R81 Glycosuria; I25.10 Atherosclerotic heart disease of native coronary artery without angina pectoris; E78.5 Hyperlipidemia, unspecified; K21.9 Gastro-esophageal reflux disease without esophagitis
CPT/HCPCS: 74022; 80053; 81001; 83690; 84484; 85025; 93005; 96361; 96374; 99284; A4216; J2405

== ENCOUNTER → 2025-06-05 | Outpatient (CLI) | payer MEDICARE, OTHER, SELFPAY ==
[2024-11-25 10:01] VITALS: BMI 20.7
[2025-06-05 12:15] LABS: AST(SGOT) 19 U/L (<=31); Alanine Aminotransfer ALT/SGPT 7 U/L (<=34); Albumin, Serum 3.7 g/dL (3.4-4.8); Alkaline Phosphatase 65 U/L (35-104); Bilirubin, Direct 0.18 mg/dL (0.00-0.30); Cholesterol 158 mg/dL (<=200); Globulin 2.8 g/dL (2.2-4.2); Low Density Lipoprotein Calc. 93 mg/dL; Triglycerides 97 mg/dL; Very Low Density Lipoprotein 19 mg/dL (5-40); cholesterol:hdl ratio screen 3.48
== END | disposition home or self-care (01) ==
LOC: LAB 10:32
PROVIDERS: PCP Internal Medicine; Referring Provider Physician Assistant Medical; Visit Provider Physician Assistant Medical
DX: I25.10 Atherosclerotic heart disease of native coronary artery without angina pectoris (principal); Z95.5 Presence of coronary angioplasty implant and graft
CPT/HCPCS: 36415; 80061; 80076

== ENCOUNTER 2025-06-13 10:00 | Outpatient (RCR) | payer MEDICARE, OTHER, SELFPAY ==
[2024-11-25 10:01] VITALS: BMI 20.7
--- NOTE | 2025-04-16 13:47 | HP.PTEVAL_ITS ---
Patient's Visit Information Visit Information Visit Information: BEN MAHARAJ is a 79 year old F referred to Physical Therapy by Dr. Freeman Angel MD with a diagnosis of PRESENCE OF LEFT AND RIGHT ARTIFICIAL KNEE JOINT,PAIN INTERNAL COMPONENTS. Date of Evaluation: 04/16/25 Physical Therapist: Darien Beasley PT, Cert MDT, OCS Visit Plan Frequency: 2x /Week Duration: 4 Weeks Plan: H/O S/P DEBRIDEMENT AND POLY EXCHANGE BILATERAL KNEES ON 04/07 AND 04/08 PT INTERVENTIONS ROM BLE KNEE ,STRENGTHENING EX'S QUADS/HAMS/HIP ,FUNCTIONAL STRENGTHENING ,BALANCE TRAINING AND ENDURANCE EX'S Subjective Subjective: This 79 y/o female presents to physical therapy with Bilateral TKA s/p debridement ploy exchange bilateral knee 04/08/24. Seen family Dr vivas PT Patient developed infection in knees with bilateral knee poly exchange and irrigation debridement at [facility] April [address] Bolden. Patient was in Rehab at [facility]. Patient had Rehab at . Initially bilateral TKA 2004. Patient Dr Bolden and will continue with antibiotic. Pain medication.Patient lives alone Mobile home 2 steps with rails. Tub/shower set up . Patient able to bath dress and cooking assist from spouse . Patient denies paresthesia/tingling.Patient sleeping okay.Pain pain located knee . Aggravating factors walking/standing. Patient has uses rollator all the time . Patient goals to walk w/o rollator. Patient current condition and comorbities influences condition. VOACTION: retired Pain Bilateral Knee: Pain Intensity (Out of 10): 8 Pain Intensity Range: 10 Objective Objective: POTURE : mild forward posture hips/knees flexed GAIT: reciprocal pattern with rollator forward posture hips/knees flexed slow mateo BALANCE: fair + with fww NEURO: denies paresthesia/tingling SKIN: ecchymosis ,thin skin AROM: supine knee flexion 15 -105 degrees ,right 20 -105 degrees supine knee flexion MMT: ( peak force) quads left 13.6 ,right 10.8 ,hamstrings left 10.3 ,right 11.1 ,hip flexion right 10.1 ,left 11.2 FLEXABILITY: hamstrings min tight Balance/Special Test Scores Lower Extremity Functional Score: 22 TUG Test Time Seconds: 31.9 Goals Goal 1:: Patient to improve AROM supine knee flexion 10 -115 degrees to improve stairs Goal Time Frame: 4-6 Weeks Goal 2:: Patient to be I with HEP for knees for strengthening Goal Time Frame: 4-6 Weeks Goal 3:: Patient to improve peak force quads/hams/hip by 5-10 # to improve function. Goal Time Frame: 4-6 Weeks Goal 4:: Patient to improve LFES score by 5-10 points to improve function/QOL Goal Time Frame: 4-6 Weeks Goal 5:: Patient to improve TUG score by< 15 sec to improve safe gait Goal Time Frame: 4-6 Weeks Rehabilitation Potential Physical Therapy Diagnosis: This patient has h/o bilateral TKA s/p debridement ploy exchange bilateral knee 04/08/24 with pain ,weakness ,decrease ROM impairs gait along with other comorbities influences condition thus benefit from skilled PT Rehabilitation Potential: Fair Anticipated Interventions Patient/Client Instruction: Educate patient on: Condition and Plan of Care For the Purpose of:: To improve muscle performance and motor function, To increase tolerance to activity/condition/position, To improve ability of physical actions for home/community/work/leisure, To improve gait and locomotor functions, To improve health of tissue, To decrease soft tissue restriction, To increase flexibility/ROM, To improve endurance, To improve balance, To improve safety with gait and To improve tolerance to ADL's Therapeutic Exercise to Include: Strength training, Endurance training, Flexibilty training, Gait and locomotor training and Active ROM Comment: QUADS/HAMS/HIP For the Purpose of:: To decrease pain, To increase ROM, To improve ability to perform ADL's, To increase tolerance to activity/condition/position, To improve ability of physical actions for home/community/work/leisure, To improve gait and locomotor functions, To improve health of tissue, To decrease soft tissue restriction, To increase flexibility/ROM, To improve endurance, To improve balance and To improve tolerance to ADL's Text: Thank you for the opportunity to evaluate your patient. For Medicare and Medicare HMO plans, please review the plan of care and approve it. It will need to be FAXED BACK to us at [phone] for Medicare purposes. For Medicare only, by signing this I certify the plan of care. Please let me know if there are questions or concerns regarding this plan of care. Physician Signature: Date:
--- NOTE | 2025-05-14 11:02 | HP.PTREVAL ---
Re-Evaluation Intro: Dr. Freeman Angel MD, It has been my pleasure to treat BEN MAHARAJ over the last 7 visits for PRESENCE OF LEFT AND RIGHT ARTIFICIAL KNEE JOINT,PAIN INTERNAL COMPONENTS. Please see the progress note below for an update on the physical therapy plan of care! Subjective Subjective: Seen DR Morales plan for neck trigger points Objective Objective/Function: Patient will benefit from skilled PT to improve balance and strength with goals appropriate POTURE : mild forward posture hips/knees flexed GAIT: reciprocal pattern with rollator forward posture hips/knees flexed slow mateo BALANCE: fair + with fww NEURO: denies paresthesia/tingling SKIN: multiple ecchymosis ,thin skin , AROM: supine knee flexion 15 -105 degrees ,right 20 -105 degrees supine knee flexion MMT: ( peak force) quads left 17.6 ,right 18.1 ,hamstrings left 16.3 ,right 16.1 ,hip flexion right 26.1 ,left 21.2 FLEXABILITY: hamstrings min tight Plan Plan Plan: H/O S/P DEBRIDEMENT AND POLY EXCHANGE BILATERAL KNEES ON 04/07 AND 04/08 PT INTERVENTIONS ROM BLE KNEE ,STRENGTHENING EX'S QUADS/HAMS/HIP ,FUNCTIONAL STRENGTHENING ,BALANCE TRAINING AND ENDURANCE EX'S Balance/Gait/Functional tests Balance/Special Test Scores Lower Extremity Functional Score: 22 TUG Test Time Seconds: 28.3 Tug Test: 20-30sec.=variable mobility Goals Goals Goal 1:: Patient to improve AROM supine knee flexion 10 -115 degrees to improve stairs Goal Time Frame: 4-6 Weeks Goal Progress: Progressing Goal 2:: Patient to be I with HEP for knees for strengthening Goal Time Frame: 4-6 Weeks Goal Progress: Progressing Goal 3:: Patient to improve peak force quads/hams/hip by 5-10 # to improve function. Goal Time Frame: 4-6 Weeks Goal Progress: Progressing Goal 4:: Patient to improve LFES score by 5-10 points to improve function/QOL Goal Time Frame: 4-6 Weeks Goal Progress: Progressing Goal 5:: Patient to improve TUG score by< 15 sec to improve safe gait Goal Time Frame: 4-6 Weeks Anticipated Interventions Anticipated Interventions Patient/Client Instruction: Educate patient on: Condition and Plan of Care For the Purpose of:: To improve muscle performance and motor function, To increase tolerance to activity/condition/position, To improve ability of physical actions for home/community/work/leisure, To improve gait and locomotor functions, To improve health of tissue, To decrease soft tissue restriction, To increase flexibility/ROM, To improve endurance, To improve balance, To improve safety with gait and To improve tolerance to ADL's Therapeutic Exercise to Include: Strength training, Endurance training, Flexibilty training, Gait and locomotor training and Active ROM Comment: QUADS/HAMS/HIP For the Purpose of:: To decrease pain, To increase ROM, To improve ability to perform ADL's, To increase tolerance to activity/condition/position, To improve ability of physical actions for home/community/work/leisure, To improve gait and locomotor functions, To improve health of tissue, To decrease soft tissue restriction, To increase flexibility/ROM, To improve endurance, To improve balance and To improve tolerance to ADL's Re-Evaluation Ending Re-evaluation ending: Please do not hesitate to contact me at [phone] by phone or if you have questions or concerns regarding this new plan of care! Sincerely, Darien Beasley, PT, Cert MDT, OCS
--- NOTE | 2025-06-13 10:27 | HP.PTDCSUM ---
Discharge Summary D/C summary: It has been my pleasure to treat BEN MAHARAJ referred by Dr. Freeman Angel MD, with the diagnosis of PRESENCE OF LEFT AND RIGHT ARTIFICIAL KNEE JOINT,PAIN INTERNAL COMPONENTS for a total of 13 visit(s). Discharge Date: 06/13/25 Please see the following information for a summary of their discharge status. Subjective Subjective: Uses cane short distances with cane with assist Will do everything ex's at home Pain Bilateral Knee: Pain Intensity (Out of 10): 0 R big toe: Pain Intensity (Out of 10): 0 Overall Improvement % Improvement: 25 Objective Objective/Function: POTURE : mild forward posture hips/knees flexed GAIT: reciprocal pattern with rollator forward posture hips/knees flexed slow mateo ( short distance with caMNE with CGA.SBA BALANCE: fair + with fww NEURO: denies paresthesia/tingling SKIN: LESS ecchymosis ,thin skin , AROM: supine knee flexion 15 -107 degrees ,right 20 -108 degrees supine knee flexion MMT: ( peak force) quads left 17.98 ,right 18.3 ,hamstrings left 16.39 ,right 16.16 ,hip flexion right 26.9 ,left 21.6 FLEXABILITY: hamstrings min tight Goals Goal 1:: Patient to improve AROM supine knee flexion 10 -115 degrees to improve stairs Goal Progress: Progressing Goal 2:: Patient to be I with HEP for knees for strengthening Goal Progress: Progressing Goal 3:: Patient to improve peak force quads/hams/hip by 5-10 # to improve function. Goal Progress: Progressing Goal 4:: Patient to improve LFES score by 5-10 points to improve function/QOL Goal Progress: Goal Met Goal 5:: Patient to improve TUG score by< 15 sec to improve safe gait Goal Progress: Progressing Plan Plan: D/C D/C Information Discharge Comments: HEP d/c sentence: If there are questions or concerns regarding this patient's physical therapy, please feel free to call me at [phone]. Thank you for the referral of this patient. Sincerely, Darien Beasley, PT, Cert MDT, OCS Balance/Gait/Functional tests Balance/Special Test Scores Lower Extremity Functional Score: 31 TUG Test Time Seconds: 28.3 Tug Test: 20-30sec.=variable mobility Improvement % Improvement: 25
== END 2025-06-13 13:59 | disposition home or self-care (01) ==
LOC: PT 10:00
PROVIDERS: PCP Internal Medicine; Referring Provider Internal Medicine; Visit Provider Internal Medicine
DX: T84.84XD Pain due to internal orthopedic prosthetic devices, implants and grafts, subsequent encounter (principal); Z96.652 Presence of left artificial knee joint; Z96.651 Presence of right artificial knee joint; R53.81 Other malaise
CPT/HCPCS: 97110; 97162; 97530

== ENCOUNTER → 2025-06-20 | Outpatient (CLI) | payer MEDICARE, OTHER, SELFPAY ==
[2024-11-25 10:01] VITALS: BMI 20.7
== END | disposition home or self-care (01) ==
LOC: LABSPEC 12:38
PROVIDERS: PCP Internal Medicine; Referring Provider Physician Assistant Surgical; Visit Provider Physician Assistant Surgical
DX: R35.0 Frequency of micturition (principal)
CPT/HCPCS: 87086; 87088; 87186

== ENCOUNTER → 2025-07-28 | Outpatient (CLI) | payer MEDICARE, OTHER, SELFPAY ==
[2024-11-25 10:01] VITALS: BMI 20.7
== END | disposition home or self-care (01) ==
LOC: LABSPEC 14:08
PROVIDERS: PCP Internal Medicine; Visit Provider Physician Assistant
DX: R35.0 Frequency of micturition (principal)
CPT/HCPCS: 87077; 87086; 87088; 87186